=== PATIENT | male | born 1980 | race Caucasian/White ===

== ENCOUNTER 2022-06-26 12:27 | Emergency (ER) | payer MEDICARE, MEDICAID, SELFPAY ==
[2022-06-26 12:53] VITALS: BP 126/81; PULSE 85; RESP 16; TEMP 36.8; O2SAT 94; BMI 37.8
--- NOTE | 2022-06-26 13:38 | CRLHL7_ITS ---
For Patients: As a result of the Cures Act, medical imaging exams and procedure reports are released immediately into your electronic medical record. You may view this report before your referring provider. If you have questions, please contact your health care provider. INDICATION: Open wound. TECHNIQUE: Right foot 3 views. COMPARISON: None. FINDINGS: No acute fracture or dislocation. Joint spaces are preserved. There is soft tissue swelling about the 1st digit and 5th MTP joint. Soft tissue ulceration along the medial aspect of the 1st digit with small amount of localized soft tissue gas. Minimal superficial ulceration along the lateral aspect of the 5th MTP joint. No definite radiographic evidence of osteomyelitis. IMPRESSION: 1. Soft tissue swelling about 1st digit and 5th MTP joint. 2. Soft tissue ulceration along the medial aspect of the 1st digit with small amount of localized soft tissue gas. 3. No definite radiographic evidence of osteomyelitis. Dictated by Graciela Barton MD @ 06/26/2022 2:59:27 PM (Electronically Signed)
--- NOTE | 2022-06-26 13:39 | CRLHL7_ITS ---
For Patients: As a result of the Century Cures Act, medical imaging exams and procedure reports are released immediately into your electronic medical record. You may view this report before your referring provider. If you have questions, please contact your health care provider. INDICATION: Leg pain. TECHNIQUE: Ultrasound venous duplex lower right extremity. Compression venous exam was performed using stephens-scale, color Doppler, and spectral Doppler analysis. COMPARISON: None. FINDINGS: Deep veins: Sonographic imaging demonstrates the right common femoral, deep femoral, superficial femoral, popliteal, posterior tibial, peroneal and the contralateral right common femoral veins to be fully compressible with normal color Doppler blood flow. Superficial veins: Greater saphenous vein is fully compressible. No popliteal cyst. IMPRESSION: No deep venous thrombosis within the evaluated veins of the right lower extremity. Dictated by Clint Brown MD @ 06/26/2022 4:03:00 PM (Electronically Signed)
--- NOTE | 2022-06-26 13:42 | ED.GENADULT ---
HPI - General Adult General Date Seen: 06/26/22 Chief complaint: Extremity Pain/Injury, Lower Stated complaint: left foot pain-diabetic Time Seen by Provider: 06/26/22 13:20 Source: patient and family Mode of arrival: ambulatory Limitations: no limitations History of Present Illness HPI narrative: Patient is a 42-year-old male with past medical history notable for type 2 diabetes, insulin dependent and hopelessness. He presents for evaluation of right foot and leg pain. He says that these symptoms started about a week ago. He says that today he noticed a wound on his great toe, his cousin who is with him, says that really he noticed it yesterday. He says that he has good sensation in his feet, he does sound like he has some neuropathy as he has been having some pain in his feet bilaterally for a longer period of time. However, the pain in his right foot is different than what he has been having previously. He denies fevers. He does say that he has been out of his insulin for at least a few days. He has not had any testing materials either. He notes increased urination, denies nausea or vomiting. The right leg has not been red or swollen. Pain extends up the medial aspect of the leg, and is sharp and somewhat spasmodic. He does note tobacco use. He says he tried vaping some THC which helped with his pain. He denies other substance use. Says he drink alcohol when he was very young but does not drink now. He denies any IV drug use or other drug use. He is currently living in a homeless snf in [place]. Related Data Home Medications Medication Instructions Recorded Confirmed aripiprazole 20 mg tablet mg 06/26/22 blood sugar diagnostic (Accu-Chek 06/26/22 06/26/22 Guide test strips) blood-glucose meter (Accu-Chek 06/26/22 06/26/22 Guide Me Glucose Meter) escitalopram oxalate 20 mg tablet mg 06/26/22 insulin aspart U-100 100 unit/mL subcut 06/26/22 (3 mL) subcutaneous pen (Novolog FlexPen U-100 Insulin aspart) insulin glargine 100 unit/mL (3 unit subcut 06/26/22 mL) subcutaneous pen (Lantus Solostar U-100 Insulin) lancets (Accu-Chek Softclix 06/26/22 06/26/22 Lancets) loratadine 10 mg tablet mg 06/26/22 pen needle, diabetic 31 gauge x 06/26/22 06/26/22 5/16 (BD Ultra-Fine Short Pen Needle) prazosin 1 mg capsule mg 06/26/22 rosuvastatin 40 mg tablet mg 06/26/22 trazodone 50 mg tablet mg 06/26/22 Previous Rx's Medication Instructions Recorded levofloxacin 500 mg tablet 500 mg PO DAILY 10 days #10 tabs 06/26/22 Allergies Allergy/AdvReac Type Severity Reaction Status Date / Time No Known Drug Allergies Allergy Verified 06/26/22 12:50 Review of Systems Status of ROS: Reports: 10 or more systems reviewed and unremarkable except as noted in History and below [facility] Social History Smoking Status: Current every day smoker What tobacco products do you use: cigarettes Do you use any of these nicotine containing products: None Second hand tobacco smoke exposure: No How often do you have a drink containing alcohol: never AUDIT-C Alcohol total score: 0 Non-prescribed substance use: denies use service: No Exam Narrative: Exam Narrative: Vital signs as noted above. In general, an alert, nontoxic male. Cooperative. Head: Normocephalic, atraumatic. Eyes: Pupils are equal reactive. Extraocular movements are full. Conjunctivae are normal. No scleral icterus. ENT: Mucous membranes are moist. Throat is normal. Neck: Supple without lymphadenopathy. Heart: Regular rate and rhythm. No murmur or rub. Lungs: Clear bilaterally. No increased work of breathing, crackles or wheezes. Abdomen: Soft and nontender. No organomegaly. Extremities: Bilateral lower extremities show no significant edema. I am not able to palpate dorsalis pedis pulses bilaterally. The left foot is normal in appearance. On the right, there is sloughing of the dermis of the great toe with erythematous skin underneath, and a deeper area of ulceration which I did not probe. He does seem to have pain in this area with palpation. The skin distal to this is somewhat dusky. More proximally, the skin is pink, but capillary refill is somewhat delayed. The skin on the 2nd toe also appears somewhat dusky. Overall, the appearance of the right foot is just slightly dusky compared to the left, but does not feel significantly cool or poorly perfused overall. He notes intact sensation throughout. The right leg is normal in appearance, there is no erythema. He notes tenderness to palpation on the medial leg throughout the lower leg and thigh. I do not feel any adenopathy or other masses. No adenopathy in the groin. No lymphangitic streaking. Neurologic: Patient is alert and oriented to person and place. Speech is fluent. Face is symmetric. Moves all extremities equally. Affect: Normal. Skin: Warm and dry. Const: Vital Signs, click to edit/add: Vital Signs - 24 hr 06/26/22 12:53 Temperature 98.3 F Pulse Rate [Pulse Oximeter] 85 Respiratory Rate 16 Blood Pressure [Ri ght Upper Arm] 126/81 Pulse Oximetry 94 Oxygen Delivery Me thod Room Air Documenting provider has reviewed patient's vital signs: yes Course Course Hospital Course: At this time I have ordered an IV with normal saline, blood work to evaluate for the status of his diabetes and potential infection, x-rays of the right foot as well as a Doppler of the right leg. Will see if we can Doppler pulses in his feet. Workup reveals a Doppler which is read by Radiology as negative for DVT. I also did an arterial ultrasound, which ultimately was read as showing patent arteries. An x-ray of the foot was reviewed by me, no obvious findings of osteomyelitis. Radiology notes a little bit of subcutaneous air underneath the area of ulceration, no findings of osteomyelitis or fracture. Labs are notable for a lactate of 2.1, CRP of 3.9. D-dimer is 0.52 I think unremarkable in the setting of a negative Doppler. White blood cell count mildly elevated of 11.9, hemoglobin is unremarkable. Venous gas is unremarkable. Metabolic panel shows a blood sugar of 379, did give him 8 units of insulin here. He also had something to eat. Electrolytes and creatinine are normal. LFTs are unremarkable. UA shows 2+ protein and glucose, but notably no ketones. COVID is negative. I did take pictures of his wound and discussed these with Dr. Hayden. He felt overall that it would be reasonable to start him on oral antibiotics and then follow up in in clinic next week for debridement. I gave him Rocephin IV here, will treat him with Levaquin orally. He does say that he has access to insulin again for use at home. He is staying in a homeless snf. He will be able to fill his antibiotic, his cousin is here and can take him to get his prescription. Reviewed with him that if he has follow up worsening symptoms, if he has fever or chills, if he notes development of redness, increasing pain, streaks of his leg, anything like that he should come back to the emergency department right away. Likewise if the toe or foot are changing collar, becoming darker, he should come back for re-evaluation. He is comfortable with all that. His cousin is available to help him with transportation. We made him an appointment with Dr. Hayden for next week. Vital Signs Vital signs: Initial Vital Signs Temperature 98.3 F 06/26/22 12:53 Temperature Source Oral 06/26/22 12:53 Pulse Rate 85 06/26/22 12:53 Pulse Rhythm 06/26/22 12:53 Pulse Strength 3+ Normal 06/26/22 12:53 Respiratory Rate 16 06/26/22 12:53 Blood Pressure 126/81 06/26/22 12:53 Blood Pressure Mean 96 06/26/22 12:53 Blood Pressure Position Sitting 06/26/22 12:53 Pulse Oximetry 94 06/26/22 12:53 Oxygen Delivery Method 06/26/22 12:53 Vital Signs Temperature 98.3 F 06/26/22 12:53 Pulse Rate 85 06/26/22 12:53 Respiratory Rate 16 06/26/22 12:53 Blood Pressure 126/81 06/26/22 12:53 Pulse Oximetry 94 06/26/22 12:53 Oxygen Delivery Method 06/26/22 12:53 Temperature 98.3 F 06/26/22 12:53 Pulse Rate 85 06/26/22 12:53 Respiratory Rate 16 06/26/22 12:53 Blood Pressure 126/81 06/26/22 12:53 Pulse Oximetry 94 06/26/22 12:53 Oxygen Delivery Method 06/26/22 12:53 Medical Decision Making Lab Data Labs: Lab Results 06/26/22 06/26/22 06/26/22 Range/Units 14:16 14:16 14:16 WBC 11.91 H (4.50-11.00) K/uL RBC 5.65 (4.30-5.90) m/uL Hgb 16.1 (13.5-17.5) gm/dL Hct 48.4 (37.0-53.0) % MCV 86 (80-100) fL MCH 29 (26-34) pg MCHC 33 (32-36) gm/dL RDW Coeff of David 12.5 (11.5-15.5) % Plt Count 356 (140-440) K/uL Neut % (Auto) 75.6 H (42.0-72.0) % Lymph % (Auto) 15.4 L (20-44) % [place] % (Auto) 7.9 (0.0-11.0) % Eos % (Auto) 0.6 (0.0-7.0) % Baso % (Auto) 0.2 (0.0-3.0) % Neut # (Auto) 9.00 H (1.7-7.0) K/uL Lymph # (Auto) 1.80 (0.90-2.90) K/uL [place] # (Auto) 0.90 (0.00-0.90) K/UL Eos # (Auto) 0.10 (0.00-0.50) K/uL Baso # (Auto) 0.00 (0.00-0.30) K/uL INR (0.91-1.10) D-Dimer Quant (PE/DVT) 0.52 H (0.00-0.50) ug/ml VBG pH (7.32-7.43) VBG pCO2 (40-50) mmHG VBG pO2 (25-47) mmHG VBG HCO3 (21-28) mmol/L Sodium 134 L (135-149) mmol/L Potassium 4.2 (3.6-5.1) mmol/L Chloride 102 (96-114) mmol/L Carbon Dioxide 28 (20-32) mmol/L BUN 14 (5-24) mg/dL Creatinine 0.7 (0.5-1.5) mg/dL Estimated Creat Clear 143.43 Estimated GFR 117 ml/min Glucose 379 H* (60-115) mg/dL Lactate (0.5-1.9) mmol/L Calcium 9.0 (8.4-10.6) mg/dL Total Bilirubin 0.5 (0.1-1.5) mg/dL Direct Bilirubin 0.2 (0.0-0.5) mg/dL AST 14 (12-35) U/L ALT 20 (4-50) U/L Alkaline Phosphatase 98 (40-150) U/L C-Reactive Protein 3.9 H (0.5-1.0) mg/dL Total Protein 8.2 (6.0-8.3) g/dL Albumin 4.0 (3.3-5.0) g/dL Urine Color (Yellow) Urine Appearance (Clear) Urine pH (5.0-8.5) Ur Specific [place] (1.000-1.030) Urine Protein (Negative) Urine Glucose (UA) (Negative) Urine Ketones (Negative) Urine Blood (Negative) Urine Nitrite (Negative) Urine Bilirubin (Negative) Urine Urobilinogen (0.2-1.0) Ur Leukocyte Esterase (Negative) Urine RBC (0-2) Urine WBC (0-5) Ur Squamous Epith Cells (None-Few) Urine Bacteria (None) SARS-CoV-2 (PCR) (Negative) 06/26/22 06/26/22 06/26/22 Range/Units 14:16 14:16 14:16 WBC (4.50-11.00) K/uL RBC (4.30-5.90) m/uL Hgb (13.5-17.5) gm/dL Hct (37.0-53.0) % MCV (80-100) fL MCH (26-34) pg MCHC (32-36) gm/dL RDW Coeff of David (11.5-15.5) % Plt Count (140-440) K/uL Neut % (Auto) (42.0-72.0) % Lymph % (Auto) (20-44) % [place] % (Auto) (0.0-11.0) % Eos % (Auto) (0.0-7.0) % Baso % (Auto) (0.0-3.0) % Neut # (Auto) (1.7-7.0) K/uL Lymph # (Auto) (0.90-2.90) K/uL [place] # (Auto) (0.00-0.90) K/UL Eos # (Auto) (0.00-0.50) K/uL Baso # (Auto) (0.00-0.30) K/uL INR 1.01 (0.91-1.10) D-Dimer Quant (PE/DVT) (0.00-0.50) ug/ml VBG pH (7.32-7.43) VBG pCO2 (40-50) mmHG VBG pO2 (25-47) mmHG VBG HCO3 (21-28) mmol/L Sodium (135-149) mmol/L Potassium (3.6-5.1) mmol/L Chloride (96-114) mmol/L Carbon Dioxide (20-32) mmol/L BUN (5-24) mg/dL Creatinine (0.5-1.5) mg/dL Estimated Creat Clear Estimated GFR ml/min Glucose (60-115) mg/dL Lactate 2.1 H (0.5-1.9) mmol/L Calcium (8.4-10.6) mg/dL Total Bilirubin (0.1-1.5) mg/dL Direct Bilirubin (0.0-0.5) mg/dL AST (12-35) U/L ALT (4-50) U/L Alkaline Phosphatase (40-150) U/L C-Reactive Protein (0.5-1.0) mg/dL Total Protein (6.0-8.3) g/dL Albumin (3.3-5.0) g/dL Urine Color (Yellow) Urine Appearance (Clear) Urine pH (5.0-8.5) Ur Specific [place] (1.000-1.030) Urine Protein (Negative) Urine Glucose (UA) (Negative) Urine Ketones (Negative) Urine Blood (Negative) Urine Nitrite (Negative) Urine Bilirubin (Negative) Urine Urobilinogen (0.2-1.0) Ur Leukocyte Esterase (Negative) Urine RBC (0-2) Urine WBC (0-5) Ur Squamous Epith Cells (None-Few) Urine Bacteria (None) SARS-CoV-2 (PCR) Negative SARS-CoV-2 (Negative) 06/26/22 06/26/22 Range/Units 14:16 16:06 WBC (4.50-11.00) K/uL RBC (4.30-5.90) m/uL Hgb (13.5-17.5) gm/dL Hct (37.0-53.0) % MCV (80-100) fL MCH (26-34) pg MCHC (32-36) gm/dL RDW Coeff of David (11.5-15.5) % Plt Count (140-440) K/uL Neut % (Auto) (42.0-72.0) % Lymph % (Auto) (20-44) % [place] % (Auto) (0.0-11.0) % Eos % (Auto) (0.0-7.0) % Baso % (Auto) (0.0-3.0) % Neut # (Auto) (1.7-7.0) K/uL Lymph # (Auto) (0.90-2.90) K/uL [place] # (Auto) (0.00-0.90) K/UL Eos # (Auto) (0.00-0.50) K/uL Baso # (Auto) (0.00-0.30) K/uL INR (0.91-1.10) D-Dimer Quant (PE/DVT) (0.00-0.50) ug/ml VBG pH 7.418 (7.32-7.43) VBG pCO2 45 (40-50) mmHG VBG pO2 40.2 (25-47) mmHG VBG HCO3 29 H (21-28) mmol/L Sodium (135-149) mmol/L Potassium (3.6-5.1) mmol/L Chloride (96-114) mmol/L Carbon Dioxide (20-32) mmol/L BUN (5-24) mg/dL Creatinine (0.5-1.5) mg/dL Estimated Creat Clear Estimated GFR ml/min Glucose (60-115) mg/dL Lactate (0.5-1.9) mmol/L Calcium (8.4-10.6) mg/dL Total Bilirubin (0.1-1.5) mg/dL Direct Bilirubin (0.0-0.5) mg/dL AST (12-35) U/L ALT (4-50) U/L Alkaline Phosphatase (40-150) U/L C-Reactive Protein (0.5-1.0) mg/dL Total Protein (6.0-8.3) g/dL Albumin (3.3-5.0) g/dL Urine Color Yellow (Yellow) Urine Appearance Turbid A (Clear) Urine pH 5.5 (5.0-8.5) Ur Specific [place] 1.020 (1.000-1.030) Urine Protein 2+ A (Negative) Urine Glucose (UA) 2+ A (Negative) Urine Ketones Negative (Negative) Urine Blood Trace-lysed A (Negative) Urine Nitrite Negative (Negative) Urine Bilirubin Negative (Negative) Urine Urobilinogen 0.2 (0.2-1.0) Ur Leukocyte Esterase Negative (Negative) Urine RBC 0-2 (0-2) Urine WBC 0-2 (0-5) Ur Squamous Epith Cells None (None-Few) Urine Bacteria None (None) SARS-CoV-2 (PCR) (Negative) Discharge Plan Discharge Clinical Impression: Diabetes, Chronic ulcer of great toe of right foot Patient Disposition: Home, Self-Care Condition: Improved Instructions: Diabetic Foot Ulcers (ED) Additional Instructions: Your Podiatry follow up appointment is scheduled at the [facility] on 06/30 with a 1:30pm arrival time. [address], [place] [address] Return to the emergency department for redness, increasing pain, fever, chills, or other worsening. Antibiotics as prescribed. Ibuprofen or Tylenol as needed for pain. Prescriptions: New levofloxacin 500 mg tablet 500 mg PO DAILY 10 Days Qty: 10 0RF No Action (DME) blood-glucose meter [Accu-Chek Guide Me Glucose Mtr] Misc MISCELLANEOUS trazodone 50 mg tablet prazosin 1 mg capsule (DME) Accu-Chek Guide test strips Strip MISCELLANEOUS (DME) lancets [Accu-Chek Softclix Lancets] Misc MISCELLANEOUS loratadine 10 mg tablet (DME) pen needle, diabetic [BD Ultra-Fine Short Pen Needle] 31 gauge x 5/16 needle MISCELLANEOUS escitalopram oxalate 20 mg tablet aripiprazole 20 mg tablet insulin aspart U-100 [Novolog FlexPen U-100 Insulin] 100 unit/mL (3 mL) insulin pen SUBCUT rosuvastatin 40 mg tablet insulin glargine [Lantus Solostar U-100 Insulin] 100 unit/mL (3 mL) insulin pen SUBCUT Stand Alone Forms: MyHealth Info Instructions
[2022-06-26 14:28] LABS: HCO3 VBG 29 mmol/L (21-28); PCO2 VBG 45 mmHG (40-50); PO2 VBG 40.2 mmHG (25-47); pH VBG 7.418 (7.32-7.43)
[2022-06-26 14:29] LABS: Basophils Percent Auto 0.2 % (0.0-3.0); Eosinophils Percent Auto 0.6 % (0.0-7.0); Hematocrit 48.4 % (37.0-53.0); Hemoglobin* 16.1 gm/dL (13.5-17.5); Immature Granulocytes Pct Auto 0.3 %; Lactate* 2.1 mmol/L (0.5-1.9); Lymphocytes Percent Auto 15.4 % (20-44); Mean Corpuscular HGB Conc 33 gm/dL (32-36); Mean Corpuscular Hemoglobin 29 pg (26-34); Mean Corpuscular Volume 86 fL (80-100); Monocytes Percent Auto 7.9 % (0.0-11.0); Neutrophils Percent Auto 75.6 % (42.0-72.0); Platelet Count* 356 K/uL (140-440); RDW Coefficient of Variation % 12.5 % (11.5-15.5); Red Blood Count 5.65 m/uL (4.30-5.90); White Blood Count* 11.91 K/uL (4.50-11.00)
[2022-06-26] MEDS: MORPHINE 4 MG/ML INJ IVP (14:29)
[2022-06-26] MEDS: 0.9 % SODIUM CHLORIDE 500 ML 500 ML IV (14:30)
[2022-06-26 14:32] LABS: Slide Review Reflex No
--- NOTE | 2022-06-26 14:40 | CRLHL7_ITS ---
For Patients: As a result of the Cures Act, medical imaging exams and procedure reports are released immediately into your electronic medical record. You may view this report before your referring provider. If you have questions, please contact your health care provider. DUPLEX ARTERIAL ULTRASOUND RIGHT LOWER EXTREMITY, 06/26/2022 CLINICAL HISTORY: Non-healing right lower extremity wound. COMPARISON: None. TECHNIQUE: The right lower extremity arteries were examined per exam specific protocol with stephens-scale ultrasound, color-flow and Doppler spectral analysis. Peak systolic velocities (PSV), Doppler waveform quality and velocity ratios, if applicable, were documented at sites per exam specific protocol. FINDINGS: ARTERIAL DUPLEX US LOWER EXTREMITIES (Velocity in cm/sec) RIGHT VELOCITY WAVEFORM BAR CAPTAIN 143 T DFA 74 T SFA PROX 121 T SFA MID 108 T SFA DIS 112 T POP 128 T CELESTINA 94 T RESEARCH PROGRAM MANAGER 143 B TOSHA 40 B DPA 53 B Multiphasic waveforms are seen throughout the right lower extremity arterial system. No evidence of hemodynamically significant stenoses or occlusions. There is a 2.7 x 1.1 x 2.4 cm lymph node in the right inguinal region which demonstrates normal internal architecture. IMPRESSION: Multiphasic waveforms throughout the right lower extremity arterial system. No evidence of hemodynamically significant stenoses or occlusions. Kyree Ni M.D. [facility] [facility] [email or web address] THELMA/art cordova/Dictated by: Kyree Ni MD @ 06/26/2022 4:28:00 PM (Electronically Signed)
[2022-06-26 14:47] LABS: Chloride* 102 mmol/L (96-114); Sodium* 134 mmol/L (135-149)
[2022-06-26 14:48] LABS: Potassium* 4.2 mmol/L (3.6-5.1)
[2022-06-26 14:50] LABS: Alkaline Phosphatase* 98 U/L (40-150); Aspartate Amino Transferase* 14 U/L (12-35); Bilirubin Direct* 0.2 mg/dL (0.0-0.5); Bilirubin Total* 0.5 mg/dL (0.1-1.5); Blood Urea Nitrogen* 14 mg/dL (5-24); Carbon Dioxide* 28 mmol/L (20-32); Creatinine* 0.7 mg/dL (0.5-1.5); Est. Creatinine Clearance* 143.43; Estimated Glomerular Filt Rate 117 ml/min; Total Protein* 8.2 g/dL (6.0-8.3)
[2022-06-26 14:51] LABS: Alanine Aminotransferase* 20 U/L (4-50); D Dimer Quantitative* 0.52 ug/ml (0.00-0.50)
[2022-06-26 14:53] LABS: C Reactive Protein* 3.9 mg/dL (0.5-1.0)
[2022-06-26 14:58] LABS: Glucose* 379 mg/dL (60-115)
--- NOTE | 2022-06-26 14:59 | ED.NURSE ---
Critical lab: 379 glucose, handed to at 1500
[2022-06-26 15:33] LABS: SARS PCR* Negative SARS-CoV-2 (Negative)
[2022-06-26 15:34] LABS: INR 1.01 (0.91-1.10); Prothrombin Time 13.9 Seconds
[2022-06-26 16:23] LABS: Appearance Urine Turbid (Clear); Bilirubin Urine Negative (Negative); Blood Urine Trace-lysed (Negative); Color Urine Yellow (Yellow); Glucose Urine 2+ (Negative); Ketones Urine Negative (Negative); Leukocyte Esterase Urine Negative (Negative); Nitrite Urine Negative (Negative); Protein Urine 2+ (Negative); Urobilinogen Urine 0.2 (0.2-1.0); pH Urine 5.5 (5.0-8.5)
[2022-06-26 16:39] LABS: RBC Urine 0-2 (0-2); WBC Urine 0-2 (0-5)
[2022-06-26] MEDS: cefTRIAXone 1 GM in 0.9 % SODIUM CHLORIDE Mini-bag 100 ML IVPB (16:43)
== END 2022-06-26 17:43 | disposition home or self-care (01) ==
PROVIDERS: Emergency Provider Emergency Medicine
DX: E11.621 Type 2 diabetes mellitus with foot ulcer (principal); L97.519 Non-pressure chronic ulcer of other part of right foot with unspecified severity
CPT/HCPCS: 36415; 73630; 80048; 80076; 81001; 82803; 83605; 85025; 85379; 85610; 86140; 87040; 87635; 93926; 93971; 96365; 96375; 99284; J0696; J2270; J7120

== ENCOUNTER 2022-07-06 17:50 | Outpatient (CLI) | payer MEDICARE, MEDICAID, SELFPAY | END 2022-07-06 17:51 | disposition home or self-care (01) | LOC: AMB 07-09 11:22 | PROVIDERS: Visit Provider Emergency Medicine Emergency Medical Services | DX: M79.671 Pain in right foot (principal) | CPT/HCPCS: A0425; A0429 ==

== ENCOUNTER 2022-07-06 18:06 | Inpatient (IN) | payer MEDICARE, MEDICAID, SELFPAY ==
[2022-07-06] VITALS (10 sets, daily range): BP systolic 126–144; BP diastolic 70–90; PULSE 81–95; RESP 16–20; TEMP 37.1–37.2; O2SAT 90–96; BMI 37.8; BMI 34.0
--- NOTE | 2022-07-06 18:44 | CRLHL7_ITS ---
For Patients: As a result of the Century Cures Act, medical imaging exams and procedure reports are released immediately into your electronic medical record. You may view this report before your referring provider. If you have questions, please contact your health care provider. Indication: Pain. Concern for osteomyelitis. Technique: Right great toe, 2 views. Comparison: None. Findings/Impression: Bones: Subtle cortical dehiscence along the medial aspect of the great toe proximal phalanx suspicious for early osteomyelitis, particularly in the setting of adjacent overlying skin ulceration. Joint spaces: Unremarkable. Soft tissues: Right great toe skin ulceration. Dictated by John Watt MD @ 07/06/2022 7:31:04 PM (Electronically Signed)
--- NOTE | 2022-07-06 18:44 | ED_ITS ---
HPI - Extremity Injury (Lower) General Chief Complaint: Lower Extremity Swelling Stated Complaint: Foot Infection Time Seen by Provider: 07/06/22 18:25 History of Present Illness HPI Narrative: 42-year-old man presents again to the emergency department after being seen here about 10 days ago and diagnosed with a foot/great toe ulceration and suspected related of infection. Likely peripheral neuropathy. Diabetes and uses insulin. He was given Rocephin in the emergency department and to take levofloxacin. Underlying history apparently of TBI and he also reveals to me that he has to take regular shots of Abilify so that ?I do not talk to myself?. He is a very poor historian. It is unclear whether not he was taking his levofloxacin so with permission I do call to his sister who lives in [place] now. Mr. Low has been homeless though now lives in temporary subsidized apartment, though sister notes still qualifies as homeless. Her name is Chris and he was able to recall her phone number at [phone]. She notes that he did not take Levaquin as prescribed. Nursing indicates that he has not followed up with Podiatry as scheduled 6 days ago. Podiatry was consulted during last ER visit. Sheryl is a cousin who works for [employer] phone number [phone] whose phone number I get from [employer]. It was actually she who apparently saw that the antibiotic pills had not been taken. Sister recalls 3 to 4 weeks ago started to have pain in his feet. Somewhere between 2-3 weeks ago on ulceration was apparently noticed. All these time lines are in question. Mr. Low at this point denies any fever. Does feel this pain radiating up medial lower leg. I do place saline soaked gauze on to this open sore/ulceration and he says already starts to feel better. Related Data Home Medications Medication Instructions Recorded Confirmed aripiprazole 20 mg tablet mg 06/26/22 blood sugar diagnostic (Accu-Chek 06/26/22 06/26/22 Guide test strips) blood-glucose meter (Accu-Chek 06/26/22 06/26/22 Guide Me Glucose Meter) escitalopram oxalate 20 mg tablet mg 06/26/22 insulin aspart U-100 100 unit/mL subcut 06/26/22 (3 mL) subcutaneous pen (Novolog FlexPen U-100 Insulin aspart) insulin glargine 100 unit/mL (3 unit subcut 06/26/22 mL) subcutaneous pen (Lantus Solostar U-100 Insulin) lancets (Accu-Chek Softclix 06/26/22 06/26/22 Lancets) loratadine 10 mg tablet mg 06/26/22 pen needle, diabetic 31 gauge x 06/26/22 06/26/22 5/16 (BD Ultra-Fine Short Pen Needle) prazosin 1 mg capsule mg 06/26/22 rosuvastatin 40 mg tablet mg 06/26/22 trazodone 50 mg tablet mg 06/26/22 Previous Rx's Medication Instructions Recorded levofloxacin 500 mg tablet 500 mg PO DAILY 10 days #10 tabs 06/26/22 Allergies Allergy/AdvReac Type Severity Reaction Status Date / Time No Known Drug Allergies Allergy Verified 07/06/22 18:13 [facility] Social History Smoking Status: Current every day smoker What tobacco products do you use: cigarettes Do you use any of these nicotine containing products: None Second hand tobacco smoke exposure: No How often do you have a drink containing alcohol: never AUDIT-C Alcohol total score: 0 Non-prescribed substance use: denies use service: No Exam Narrative: Exam Narrative: Pleasant. Calm. Does demonstrate difficulty with recall. Breathing easily. Lungs appear to be clear. Heart in a regular rate and rhythm. Skin is warm and dry. The right foot in question as prior is subtly darker compared to the left. Faintly erythematous. Does have sloughing of skin and large ulceration over the medial aspect of the proximal great toe. There is dark yellow-brown goo. Faintly erythematous proximal to this erosion and over the dorsum of the foot which does extend to the ankle. There is subtle erythema without calor over the medial plantar surface of the foot up to the heel as well. Generally mildly full relative to the left foot. He is tender to palpation along this area. Says he feels better though when I actually press on the ball of his foot. He also feels better with saline soaked gauze draped over this ulceration. There is a dense and painful callus over the right 5th MTP with an abrasion in the skin. Also over the left 5th MTP. I do not see surrounding inflammatory changes here. Bad odor generally. Const: Vital Signs, click to edit/add: Vital Signs - 24 hr 07/06/22 18:09 07/06/22 19:08 07/06/22 19:15 Temperature 99.0 F Pulse Rate 95 86 Pulse Rate [Pulse Oximeter] 85 Respiratory Rate 16 Blood Pressure Blood Pressure [Ri ght Upper Arm] 139/86 Pulse Oximetry 96 95 93 Oxygen Delivery Me thod Room Air 07/06/22 19:31 07/06/22 19:32 07/06/22 19:45 Temperature Pulse Rate 90 88 84 Pulse Rate [Pulse Oximeter] Respiratory Rate Blood Pressure 126/90 H Blood Pressure [Ri ght Upper Arm] Pulse Oximetry 90 90 90 Oxygen Delivery Me thod 07/06/22 20:00 07/06/22 20:01 07/06/22 20:15 Temperature Pulse Rate 83 83 81 Pulse Rate [Pulse Oximeter] Respiratory Rate Blood Pressure 127/70 Blood Pressure [Ri ght Upper Arm] Pulse Oximetry 90 92 92 Oxygen Delivery Me thod Documenting provider has reviewed patient's vital signs: yes Course Vital Signs Vital signs: Initial Vital Signs Temperature 99.0 F 07/06/22 18:09 Temperature Source Temporal Artery Scan 07/06/22 18:09 Pulse Rate 85 07/06/22 18:09 Pulse Rhythm 07/06/22 18:09 Pulse Strength 3+ Normal 07/06/22 18:09 Respiratory Rate 16 07/06/22 18:09 Blood Pressure 139/86 07/06/22 18:09 Blood Pressure Mean 103 07/06/22 18:09 Blood Pressure Position Supine 07/06/22 18:09 Pulse Oximetry 96 07/06/22 18:09 Oxygen Delivery Method 07/06/22 18:09 Vital Signs Temperature 99.0 F 07/06/22 18:09 Pulse Rate 85 07/06/22 18:09 Respiratory Rate 16 07/06/22 18:09 Blood Pressure 139/86 07/06/22 18:09 Pulse Oximetry 96 07/06/22 18:09 Oxygen Delivery Method 07/06/22 18:09 Temperature 99.0 F 07/06/22 18:09 Pulse Rate 81 07/06/22 20:15 Respiratory Rate 16 07/06/22 18:09 Blood Pressure 127/70 07/06/22 20:01 Pulse Oximetry 92 02/27/23 20:15 Oxygen Delivery Method 07/06/22 18:09 MDM - Extremity Injury (Lower) MDM Narrative Medical decision making narrative: IV will be established. Need to compare labs. Comparing images to x-rays obtained 10 days ago it appears to me that there is some erosion of the medial aspect of the great toe, especially proximal phalynx, that might represent osteomyelitis. I have debrided some of the is partially sloughed callus skin from around this largest wound on the right great toe. After rinsing with normal saline cleaning a little bit, there is some ooze that I've collected for wound culture from the most proximal aspect that lies deep to the dorsal toe. White count is rather elevated relative to week and half ago now at nearly 17,000. CRP is over 8. I am anticipating admission for IV antibiotics and debridement. I have discussed with Dr. Hayden, corporate legal secretary. He would anticipate seeing this patient tomorrow. Anticipating conversation with our hospitalist Dr. Marrero and likely initiation of vancomycin and Rocephin. Sounds like will be admitting to [facility]. This case is complicated by homelessness and cognitive capability. Medical Records Attestation: I reviewed the patient's medical records. Lab Data Attestation: I reviewed the patient's lab results. Labs: Lab Results 07/06/22 07/06/22 07/06/22 Range/Units 18:50 18:50 18:50 WBC 16.75 H (4.50-11.00) K/uL RBC 5.73 (4.30-5.90) m/uL Hgb 16.1 (13.5-17.5) gm/dL Hct 48.2 (37.0-53.0) % MCV 84 (80-100) fL MCH 28 (26-34) pg MCHC 33 (32-36) gm/dL RDW Coeff of David 12.5 (11.5-15.5) % Plt Count 352 (140-440) K/uL Neut % (Auto) 79.9 H (42.0-72.0) % Lymph % (Auto) 10.4 L (20-44) % Nicholas % (Auto) 9.1 (0.0-11.0) % Eos % (Auto) 0.1 (0.0-7.0) % Baso % (Auto) 0.1 (0.0-3.0) % Neut # (Auto) 13.40 H (1.7-7.0) K/uL Lymph # (Auto) 1.70 (0.90-2.90) K/uL Nicholas # (Auto) 1.50 H (0.00-0.90) K/UL Eos # (Auto) 0.00 (0.00-0.50) K/uL Baso # (Auto) 0.00 (0.00-0.30) K/uL Sodium 133 L (135-149) mmol/L Potassium 3.8 (3.6-5.1) mmol/L Chloride 99 (96-114) mmol/L Carbon Dioxide 28 (20-32) mmol/L BUN 13 (5-24) mg/dL Creatinine 0.6 (0.5-1.5) mg/dL Estimated Creat Clear 167.33 Estimated GFR 122 ml/min Glucose 282 H (60-115) mg/dL Lactate (0.5-1.9) mmol/L Calcium 8.9 (8.4-10.6) mg/dL C-Reactive Protein 8.1 H (0.5-1.0) mg/dL SARS-CoV-2 (PCR) Negative SARS-CoV-2 (Negative) 07/06/22 Range/Units 19:40 WBC (4.50-11.00) K/uL RBC (4.30-5.90) m/uL Hgb (13.5-17.5) gm/dL Hct (37.0-53.0) % MCV (80-100) fL MCH (26-34) pg MCHC (32-36) gm/dL RDW Coeff of David (11.5-15.5) % Plt Count (140-440) K/uL Neut % (Auto) (42.0-72.0) % Lymph % (Auto) (20-44) % Nicholas % (Auto) (0.0-11.0) % Eos % (Auto) (0.0-7.0) % Baso % (Auto) (0.0-3.0) % Neut # (Auto) (1.7-7.0) K/uL Lymph # (Auto) (0.90-2.90) K/uL Nicholas # (Auto) (0.00-0.90) K/UL Eos # (Auto) (0.00-0.50) K/uL Baso # (Auto) (0.00-0.30) K/uL Sodium (135-149) mmol/L Potassium (3.6-5.1) mmol/L Chloride (96-114) mmol/L Carbon Dioxide (20-32) mmol/L BUN (5-24) mg/dL Creatinine (0.5-1.5) mg/dL Estimated Creat Clear Estimated GFR ml/min Glucose (60-115) mg/dL Lactate 1.3 (0.5-1.9) mmol/L Calcium (8.4-10.6) mg/dL C-Reactive Protein (0.5-1.0) mg/dL SARS-CoV-2 (PCR) (Negative) Discharge Plan Discharge Clinical Impression: Infection of great toe, Osteomyelitis Patient Disposition: Admitted As Inpatient Condition: Stable
[2022-07-06 19:10] LABS: Basophils Percent Auto 0.1 % (0.0-3.0); Eosinophils Percent Auto 0.1 % (0.0-7.0); Hematocrit 48.2 % (37.0-53.0); Hemoglobin* 16.1 gm/dL (13.5-17.5); Immature Granulocytes Pct Auto 0.4 %; Lymphocytes Percent Auto 10.4 % (20-44); Mean Corpuscular HGB Conc 33 gm/dL (32-36); Mean Corpuscular Hemoglobin 28 pg (26-34); Mean Corpuscular Volume 84 fL (80-100); Monocytes Percent Auto 9.1 % (0.0-11.0); Neutrophils Percent Auto 79.9 % (42.0-72.0); Platelet Count* 352 K/uL (140-440); RDW Coefficient of Variation % 12.5 % (11.5-15.5); Red Blood Count 5.73 m/uL (4.30-5.90); White Blood Count* 16.75 K/uL (4.50-11.00)
--- NOTE | 2022-07-06 19:19 | ED.NURSE ---
patient given food and fluids - okayed by .
[2022-07-06 19:30] LABS: Slide Review Reflex No
[2022-07-06 19:32] LABS: Chloride* 99 mmol/L (96-114); Potassium* 3.8 mmol/L (3.6-5.1); Sodium* 133 mmol/L (135-149)
[2022-07-06 19:35] LABS: Creatinine* 0.6 mg/dL (0.5-1.5); Est. Creatinine Clearance* 167.33; Estimated Glomerular Filt Rate 122 ml/min
[2022-07-06 19:36] LABS: Blood Urea Nitrogen* 13 mg/dL (5-24); Calcium* 8.9 mg/dL (8.4-10.6); Carbon Dioxide* 28 mmol/L (20-32); Glucose* 282 mg/dL (60-115)
[2022-07-06 19:39] LABS: C Reactive Protein* 8.1 mg/dL (0.5-1.0)
[2022-07-06 19:45] LABS: Lactate* 1.3 mmol/L (0.5-1.9)
[2022-07-06 19:53] LABS: SARS PCR* Negative SARS-CoV-2 (Negative)
[2022-07-06] MEDS: 0.9 % SODIUM CHLORIDE 1000 ml 1,000 ML IV (21:30)
[2022-07-06] MEDS: cefTRIAXone 1 GM in 0.9 % SODIUM CHLORIDE Mini-bag 100 ML IVPB (21:35)
--- NOTE | 2022-07-06 22:42 | PM.IMCN1 ---
Date of Consult Consult date: 07/06/22 Requesting Physician: Other (ER physician.) Primary Care Provider: Not a Local Provider Consult Narrative Reason for consult: Admission support, and cross coverage care for this hospitalization. Narrative: [facility] CONSULTATION NOTE: The [facility] hospitalist was contacted by the local ER provider with a request for consultation for admission support and cross coverage services for this patient. Provider requesting [facility] Hospitalist Services: Dr. Grey Tineo MD. Chief Complaint: Right foot infection. HPI: This patient is a 42-year-old gentleman with a history of diabetes mellitus type 2 who has had repeated visits to the ER for care pertaining to an infection involving the medial aspect of the right large toe and the base of the metatarsal phalangeal joint. The area of infection is ulcerated and was last assessed in the ER on 06/26/2022 when he saw a automotive welder was consulted to assist in the patient's care. An x-ray of this foot identified the ulceration and underlying soft tissue inflammation. No signs of osteomyelitis were seen at that time. The patient is a poor historian and reports that has a history of traumatic brain injury and takes medications for psychiatric disorder. This appears to have a significant impact on his ability to recall his past and more recent medical history, especially as it pertains to the infection in his right foot. The patient is noted to be homeless. On the last visit the patient was prescribed levofloxacin and was advised to follow-up with the automotive welder he saw in the ER. The patient was not able to follow through with either of the steps, according to his sister who accompanied him. According to the sister the patient started developing bilateral foot ulcers about 2 to 3 weeks ago. He returns today with complaints of increasing redness, swelling, and pain surrounding the foot ulcers and extending proximally up the dorsum of the foot. He also complains of increasing pain radiating from the foot to the lateral thigh with weightbearing. He claims no fevers, chills, or malaise. An x-ray was read he repeated today by the ER provider. This study showed subtle evidence of cortical dehiscence in the medial aspect of the large toe phalanx, consistent with osteomyelitis and overlying skin ulcers noted. The erythema in the foot is more extensive than 1 last seen on 06/26/2022. There is a large callus over lying the inferolateral aspect of the right fifth toe. This does not appear to be ulcerated or significantly inflamed. He also has an ulcer overlying the lateral aspect of the left fifth toe. There appears to be less inflammation and there is an overlying dry eschar. The laboratory survey reveals leukocytosis on hemogram with a WBC of 16,750. The chemistry panel is unremarkable except for an elevated blood glucose level and an elevated CRP (8.1). Blood cultures x2 were collected and purulence was collected for culture from the right medial foot ulcer. The ER provider has requested admission of this patient for an infected diabetic ulcer with suspected underlying osteomyelitis involving the medial side of the large toe and the base of his toe. Podiatry was again contacted and they agreed to see the patient following admission. Empiric antibiotics were started after blood collection. Antibiotics selected are vancomycin and Rocephin. Pertinent PMH: 1. DM type II; subacute bilateral foot ulcers; history of traumatic brain injury; history of a psychiatric illness that the patient is not able to specify. 2. Also, refer to the problem list in the ER provider's encounter note. History Reviewed In The Medical Record: Home Medications. Pertinent Social History. Recent OPD/ER Progress Notes. EXAM: Performed via an interactive video with the assistance of the bedside nurse. The Bedside RN is Olga. VS: T 99. P 81. RR 16. BP 122/70. SPO2 92%. FIO2 room air. GENERAL: Alert and oriented x person, time, place, and situation. Answers questions appropriately. Follows commands normally. A low level of distress is displayed. Pain level claimed: 8/10, due to right large toe pain about the ulcerated and inflamed region of the medial large right toe. HEENT: NC/AT. Facial features symmetric. PERRL. EOM function WNL. No jaundice seen. No cyanosis seen. Oropharynx is visualized. No erythema or exudates seen. NECK: Supple. No JVD seen. CHEST: Chest wall is not tender. Respiratory motion appears normal. LUNGS: Breath sounds heard in all lung valles, bilaterally. No coarse rhonchi heard. No wheezes heard. No rales heard. HEART: RRR. No murmurs heard. No gallops heard. Full, symmetric pulses palpated. ABD: Bowel sounds present in 4 quadrants. Soft. No rebound rigidity or guarding palpated. : Not examined. EXTREMITIES: No dependent leg edema seen. Pulses are palpable in both feet. The right foot is remarkable for a ulcerated, erythematous region medial to the base of the great toe and more distally along the medial aspect of the large right toe phalanx. Purulence is draining from this ulcer. A significant amount of redness and swelling extends up over the medial and dorsal aspect of the right foot. A large callus overlies the lateral aspect of the right foot near the base of the fifth toe. This does not appear to be infected or ulcerated. An ulcer is noted over the lateral aspect of the left fifth toe. There is a dry eschar with no drainage from this ulcer. No significant erythema seen at the base of this toe or underlying the ulcer eschar. SKIN: No generalized rashes seen. Skin turgor, temperature, and color is generally normal. NEUROLOGICAL: Awake. Oriented x 4. Moves all extremities purposefully or on command. Cranial nerve 2-12 function WNL. Strength symmetric. No upper extremity pronator drift seen. No tremors seen. No myoclonus seen. LAB Data: Reviewed. Hgb 16.1, HCT 48.2, PLT 352, WBC 16,750. NA 133, K3.8, CL 99, CO2 28, BUN 13, creatinine 0.6, glucose 282, CRP 8.1. EKG: None. RADIOLOGY REPORTS: Reviewed and discussed above. ASSESSMENT: 1. Infected diabetic ulcer involving the medial aspect of the right large toe. 2. Osteomyelitis involving the large right toe. 3. Noninfected ulcers on the lateral aspect of the right foot and lateral aspect of the left foot. 4. DM type II, historically suboptimally managed. 5. It should be noted that the patient did also complain of having loose stools was he believes started earlier today. He had some cramping with loose stools. He does not recall whether or not he took oral antibiotics as prescribed following his last assessment in the ER on 06/26/2022 when he was prescribed levofloxacin. Self-reported diarrhea. The patient believes he started having loose stools earlier today. He does not recall whether or not he took oral antibiotics as prescribed on 06/26/2022. 6.Reported history of TBI. 7. Self-reported history of a mental health disorder requiring medical management in the past. PLANS: 1. The [facility] Service will provide cross coverage care during this hospitalization. 2. Agree with empiric antibiotic coverage. Vancomycin and Rocephin is an adequate regimen for now. 3. Agree with wound and blood cultures. Results pending 4. Agree with podiatric consultation to manage foot ulcers, and possibly secure a bone biopsy and culture. 5. Analgesics for pain control. 6. Blood glucose management during this hospitalization. Patient will need further treatment and teaching steps for self-management of his DM type II. 7. Collect stool for culture and sensitivities and a screening assay for C. difficile toxin. RECOMMENDATIONS: 1. DVT prevention steps. 2. Diabetic diet. 3. Posthospitalization wound care follow-up and treatment. I have reviewed the case in consultation. Information has been gathered from conversations with the local provider, a review of the patient's chart, and by a patient evaluation. Based on the current information and the patient's current medical condition, I certify the patient meets criteria for: [ ] Acute inpatient status with the expectation of a patient stay of more than 2 midnights, but less than 96 hrs. [ ] Swing bed. [XXX] Observation status with an expected stay of less than 2 midnights. Thank you for [facility]. This service is available for further assistance as requested by your care team by calling [phone]. [facility] Social History Highest level of school completed/degree received: don't know Smoking Status: Current every day smoker What tobacco products do you use: cigarettes Smoking packs per day: 1.5 Smoking cigarettes per day: 30.0 Do you use any of these nicotine containing products: None Second hand tobacco smoke exposure: No How often do you have a drink containing alcohol: never AUDIT-C Alcohol total score: 0 Non-prescribed substance use: denies use Caffeine: Yes service: No Meds Home Medications and Allergies Home Medications Medication Instructions Recorded Confirmed Type aripiprazole 20 mg tablet mg 06/26/22 History blood sugar diagnostic (Accu-Chek 06/26/22 06/26/22 History Guide test strips) blood-glucose meter (Accu-Chek 06/26/22 06/26/22 History Guide Me Glucose Meter) escitalopram oxalate 20 mg tablet mg 06/26/22 History insulin aspart U-100 100 unit/mL subcut 06/26/22 History (3 mL) subcutaneous pen (Novolog FlexPen U-100 Insulin aspart) insulin glargine 100 unit/mL (3 unit subcut 06/26/22 History mL) subcutaneous pen (Lantus Solostar U-100 Insulin) lancets (Accu-Chek Softclix 06/26/22 06/26/22 History Lancets) loratadine 10 mg tablet mg 06/26/22 History pen needle, diabetic 31 gauge x 06/26/22 06/26/22 History 5/16 (BD Ultra-Fine Short Pen Needle) prazosin 1 mg capsule mg 06/26/22 History rosuvastatin 40 mg tablet mg 06/26/22 History trazodone 50 mg tablet mg 06/26/22 History Allergies Allergy/AdvReac Type Severity Reaction Status Date / Time No Known Drug Allergies Allergy Verified 07/06/22 18:13 Exam Const: Vital Signs, click to edit/add: Vital Signs - 24 hr 07/06/22 18:09 07/06/22 19:08 07/06/22 19:15 Temperature 99.0 F Pulse Rate 95 86 Pulse Rate [Pulse Oximeter] 85 Respiratory Rate 16 Blood Pressure Blood Pressure [Ri t Upper Arm] 139/86 Pulse Oximetry 96 95 93 Oxygen Delivery Me thod Room Air 07/06/22 19:31 07/06/22 19:32 07/06/22 19:45 Temperature Pulse Rate 90 88 84 Pulse Rate [Pulse Oximeter] Respiratory Rate Blood Pressure 126/90 H Blood Pressure [Ri t Upper Arm] Pulse Oximetry 90 90 90 Oxygen Delivery Me thod 07/06/22 20:00 07/06/22 20:01 07/06/22 20:15 Temperature Pulse Rate 83 83 81 Pulse Rate [Pulse Oximeter] Respiratory Rate Blood Pressure 127/70 Blood Pressure [Ri t Upper Arm] Pulse Oximetry 90 92 92 Oxygen Delivery Me thod Labs Labs: Short CBC 07/06/22 Range/Units 18:50 WBC 16.75 H (4.50-11.00) K/uL Hgb 16.1 (13.5-17.5) gm/dL Hct 48.2 (37.0-53.0) % Plt Count 352 (140-440) K/uL BMP 07/06/22 18:50 Sodium 133 L Potassium 3.8 Chloride 99 Carbon Dioxide 28 BUN 13 Creatinine 0.6 Glucose 282 H Calcium 8.9 Assessment and Plan Assessment and plan (1) Chronic ulcer of great toe of right foot: Status: Acute (2) Infection of great toe: Status: Acute (3) Osteomyelitis: Status: Acute (4) Diabetes: Status: Acute Plan SEE ABOVE.
[2022-07-07] VITALS (8 sets, daily range): BP systolic 98–158; BP diastolic 60–96; PULSE 64–97; RESP 16–94; TEMP 36.7–38; O2SAT 92–95
[2022-07-07] MEDS: 0.9 % SODIUM CHLORIDE 1000 ml 1,000 ML 100 ML IV ×2 (00:44→17:12)
[2022-07-07] MEDS: ACETAMINOPHEN 325 MG TABLET PO ×2 (04:13→15:58)
[2022-07-07] MEDS: TRAMADOL HCL 50 MG TABLET PO ×3 (04:13→23:45)
[2022-07-07] MEDS: OMEPRAZOLE 20 MG CAPSULE DR 40 MG PO (06:27)
--- NOTE | 2022-07-07 06:30 | P.PODCN_ITS ---
[facility] - Podiatry Data of Consult Time Seen by Provider: 06:00 Date Seen: 07/07/22 Consult date: 07/07/22 Requesting physician: Douglas Marrero MD Primary care provider: Not a Local Provider Consult Narrative Reason for consult: Osteomyelitis right great toe Narrative: This is a 42-year-old male with diabetes who presented to the emergency department with worsening right great toe wound. He has been previously seen in the emergency department and was supposed to start antibiotics and follow-up with myself and outpatient clinic. patient did not start antibiotics and did not show for his appointment. He presented to the emergency department last night with worsening pain and wound. He states the wound has been present for 2-3 weeks. He admits it could be longer. He does not recall any injury or trauma to the area. He has been homeless. Currently he denies any fever, chills, nausea or vomiting. He does not recall ever having a ulceration in this area before. cc:: CC: Douglas Marrero MD Review of Systems Status of ROS: Reports: 10 or more systems reviewed and unremarkable except as noted in History and below [facility] Social History Highest level of school completed/degree received: don't know Smoking Status: Current every day smoker What tobacco products do you use: cigarettes Smoking packs per day: 1.5 Smoking cigarettes per day: 30.0 Do you use any of these nicotine containing products: None Second hand tobacco smoke exposure: No How often do you have a drink containing alcohol: never AUDIT-C Alcohol total score: 0 Non-prescribed substance use: denies use Caffeine: Yes service: No Exam Narrative: Exam Narrative: General: No distress. Vascular: Palpable pedal pulses right foot DP and PT. Capillary fill time less than 3 seconds all digits. Neuro: Diminished sensation to light touch the level of the digits. Derm: No edema. Mild erythema adjacent to large plantar medial wound great toe. No erythema to the dorsal or plantar foot currently. The large plantar medial wound located at the IPJ and proximal measures approximately 3.5 cm x 2.5 cm. Initially it was covered by a soft and loose eschar with purulent drainage beneath. Following debridement there is exposed bone of the proximal phalanx. Significant soft tissue necrosis throughout the wound prior to debridement. After debridement there was improved bleeding margins with still some level of infected tissue. Wound does not probe proximal or track along fascial planes. Musculoskeletal: No gross deformity. Muscle strength 5/5 all quadrants. Labs: WBC 16.75 with left shift, CRP 8.1 X-rays right great toe: Probable osteomyelitis proximal phalanx. Const: Vital Signs, click to edit/add: Vital Signs - 24 hr 07/06/22 18:09 07/06/22 19:08 07/06/22 19:15 Temperature 99.0 F Pulse Rate 95 86 Pulse Rate [Pulse Oximeter] 85 Respiratory Rate 16 Blood Pressure Blood Pressure [Le ft Arm] Blood Pressure [Ri ght Arm] Blood Pressure [Ri ght Upper Arm] 139/86 Pulse Oximetry 96 95 93 Oxygen Delivery Me thod Room Air 07/06/22 19:31 07/06/22 19:32 07/06/22 19:45 Temperature Pulse Rate 90 88 84 Pulse Rate [Pulse Oximeter] Respiratory Rate Blood Pressure 126/90 H Blood Pressure [Le ft Arm] Blood Pressure [Ri ght Arm] Blood Pressure [Ri ght Upper Arm] Pulse Oximetry 90 90 90 Oxygen Delivery Me thod 07/06/22 20:00 07/06/22 20:01 07/06/22 20:15 Temperature Pulse Rate 83 83 81 Pulse Rate [Pulse Oximeter] Respiratory Rate Blood Pressure 127/70 Blood Pressure [Le ft Arm] Blood Pressure [Ri ght Arm] Blood Pressure [Ri ght Upper Arm] Pulse Oximetry 90 92 92 Oxygen Delivery Me thod 07/06/22 23:00 07/06/22 23:00 07/07/22 03:00 Temperature 98.7 F 99.0 F Pulse Rate Pulse Rate [Pulse Oximeter] 94 78 Respiratory Rate 20 18 Blood Pressure Blood Pressure [Le ft Arm] 144/89 H Blood Pressure [Ri ght Arm] 132/73 Blood Pressure [Ri ght Upper Arm] Pulse Oximetry 94 94 93 Oxygen Delivery Me thod Room Air Room Air Room Air 07/07/22 04:15 Temperature 98.0 F Pulse Rate Pulse Rate [Pulse Oximeter] 97 Respiratory Rate 18 Blood Pressure Blood Pressure [Le ft Arm] Blood Pressure [Ri ght Arm] 158/93 H Blood Pressure [Ri ght Upper Arm] Pulse Oximetry 95 Oxygen Delivery Me thod Room Air Documenting provider has reviewed patient's vital signs: yes Common normals: no apparent distress General appearance: cooperative Orientation/consciousness: Yes awake Neuro: Sensorium/orientation: awake Assessment and Plan Assessment and plan (1) Osteomyelitis: Status: Acute (2) Infection of great toe: Status: Acute (3) Chronic ulcer of great toe of right foot: Status: Acute Plan Assessment: Diabetic foot infection with probable osteomyelitis right great toe. Plan: Recommend MRI today. Discussed with Matt that if there is infection within the great toe that amputation would be his best option due to the substantial size of the wound and underlying infection. We discussed that he would need MRI should help us determine extent of the infection. I reviewed d ebriding the wound bedside today. He may need further debridement in the operating room regardless of bone infection the future. He expresses understanding. Continue with IV antibiotics. Verbal consent was obtained for sharp debridement of the ulceration. Saline moistened gauze and Mepilex border dressing should be changed twice daily. Wound cultures obtained by the emergency department are pending. Possible great toe amputation tomorrow based on MRI findings. Procedure: After verbal consent and sterile prep sharp excisional debridement was performed on the right great toe. Necrotic subcutaneous tissue was sharply excised with a #10 Scalpel blade back to healthy bleeding margins. Debridement was down to but did not include bone. Deepest layer of debridement was subcutaneous tissue. Saline moistened gauze was packed into the wound and covered with Mepilex border dressing. Nail Debridement Qualifies If: Qualifiers If:: A patient qualifies for nail debridement if they have: 1 class A finding (Q7) 2 class B findings (Q8) OR 1 class B & 2 class C findings in addition to a primary condition (Q9)
[2022-07-07 06:51] LABS: Basophils Percent Auto 0.2 % (0.0-3.0); Eosinophils Percent Auto 0.4 % (0.0-7.0); Hematocrit 43.7 % (37.0-53.0); Hemoglobin* 14.7 gm/dL (13.5-17.5); Immature Granulocytes Pct Auto 0.5 %; Lymphocytes Percent Auto 12.2 % (20-44); Mean Corpuscular HGB Conc 34 gm/dL (32-36); Mean Corpuscular Hemoglobin 28 pg (26-34); Mean Corpuscular Volume 85 fL (80-100); Monocytes Percent Auto 10.8 % (0.0-11.0); Neutrophils Percent Auto 75.9 % (42.0-72.0); Platelet Count* 312 K/uL (140-440); RDW Coefficient of Variation % 12.6 % (11.5-15.5); Red Blood Count 5.17 m/uL (4.30-5.90); White Blood Count* 12.45 K/uL (4.50-11.00)
[2022-07-07 06:55] LABS: Slide Review Reflex No
[2022-07-07 07:00] LABS: Albumin* 3.3 g/dL (3.3-5.0); Chloride* 105 mmol/L (96-114); Potassium* 3.7 mmol/L (3.6-5.1); Sodium* 134 mmol/L (135-149)
[2022-07-07 07:02] LABS: Creatinine* 0.5 mg/dL (0.5-1.5); Estimated Glomerular Filt Rate 129 ml/min
[2022-07-07 07:03] LABS: Alanine Aminotransferase* 14 U/L (4-50); Alkaline Phosphatase* 100 U/L (40-150); Aspartate Amino Transferase* 10 U/L (12-35); Bilirubin Total* 0.7 mg/dL (0.1-1.5); Blood Urea Nitrogen* 10 mg/dL (5-24); Calcium* 8.1 mg/dL (8.4-10.6); Carbon Dioxide* 27 mmol/L (20-32); Glucose* 251 mg/dL (60-115); Total Protein* 7.2 g/dL (6.0-8.3)
--- NOTE | 2022-07-07 07:07 | CRLHL7_ITS ---
For Patients: As a result of the Century Cures Act, medical imaging exams and procedure reports are released immediately into your electronic medical record. You may view this report before your referring provider. If you have questions, please contact your health care provider. HISTORY: Great toe osteomyelitis. TECHNIQUE: MRI right foot without contrast. Only coronal T1, coronal STIR, and axial T1 sequences were completed. COMPARISON: Right great toe radiographs 07/06/2022. FINDINGS: Severe motion artifact on the coronal T1 sequence. Wound in the medial great toe. Marrow edema in the 1st proximal greater than distal phalanges. Erosion of the medial-plantar cortex of the 1st proximal phalanx with shallow subcortical T1 hypointense marrow signal. Skin thickening and edema like soft tissue signal around the wound. No fluid collection. Lateral forefoot wound at the 5th MTP joint. Marrow edema in the head of the 5th metatarsal and in the base of the 5th proximal phalanx without marrow replacement on T1. Skin thickening and edema like signal in the soft tissues around the lateral forefoot wound. Marrow edema in bipartite medial hallux sesamoid. Lisfranc ligament appears intact. No significant arthrosis. Edema in the foot musculature. IMPRESSION: 1. Incomplete exam. Completed sequences are compromised by motion artifact. 2. Medial great toe wound with surrounding edema and/or cellulitis. Erosion of the medial-plantar cortex of the 1st proximal phalanx underlying the wound, better seen on recent radiographs. Marrow edema in the 1st proximal phalanx. Findings are suspicious for osteomyelitis although osteomyelitis is difficult to confirm with high specificity due to the incomplete and motion compromised exam. Marrow edema in the 1st distal phalanx without osteomyelitis. 3. Lateral forefoot wound with surrounding edema and/or cellulitis. Marrow edema in the 5th metatarsal head and 5th proximal phalanx without osteomyelitis. 4. No fluid collection. 5. Muscle edema from denervation or myositis. Dictated by Jose Alva MD @ 07/07/2022 1:45:49 PM (Electronically Signed)
--- NOTE | 2022-07-07 08:22 | PC.NURSE ---
END OF SHIFT NOTE: PT CALM AND COOPERATIVE WITH CARES. PT AMBULATES WITH UNSTEADY GAIT D/T RIGHT FOOT ULCERS. PT WITH IMPAIRED MEMORY SECONDARY TO TBI. PT TO HAVE MRI 07/07. PT REPORTS PAIN TO RIGHT FOOT THAT SHOOTS ALL THE WAY UP TO MY HIP. PT EDUCATED ON IS AND ENCOURAGED USE. ANGY- PODIATRY SAW PT AT BEDSIDE THIS MORNING. DISCUSSED RIGHT FOOT INFECTION TO BONE WITH POSSIBILITY TO AMPUTATE PENDING MRI RESULTS. R GREATER TOE WOUND DEBRIDED BY DR AND DRESSED WITH WET TO DRY DRESSING OF STERILE SOAKED 2X2 PACKED COVERED WITH MEPILEX. RIGHT 5TH DIGIT TOE COVERED WITH MEPILEX.
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
--- NOTE | 2022-07-07 10:05 | PC.SOCIAL ---
Addendum entered by SARAH DuganSW 07/13/22 15:24: Phone number for Yohana Waggoner is incorrect in previous note. correct phone number is [phone]. Original Note: Social work: Received call from [facility] Vulnerable Adult worker, Heather Mckee, stating this pt has been living at the [facility]'s homeless long term but that he can not return at discharge because he is unable to care for himself. Per Heather, he does not properly store or take his medication as prescribed and is unable to bath himself or take care of his diabetes needs. He has no caregiver or assistance in his current living situation. Per Heather, pt has a mental health casework specialist who was just assigned through [facility], Yohana Waggoner, . Heather is recommending pt be discharged to a jail facility if there is a need for this level of care with the keno terminal operator plan from the nursing facility for an assisted living placement at a facility that can manage his medical and mental health needs, such as [facility] in [place]. Heather states [facility] has assisted pt in applying for Medical Assistance which should be in place soon and would cover the cost of an assisted living placement. Heather states she expects pt to agree to placement or services as recommended by the hospital as he has voiced that he needs more physical help than he had prior to hospitalization. lineworker to follow up as needed regarding discharge plan.
[2022-07-07] MEDS: LORazepam 2 MG/ML inj 1 MG IVP ×2 (12:24→13:10)
[2022-07-07] MEDS: MORPHINE 4 MG/ML INJ IVP (13:53)
--- NOTE | 2022-07-07 14:19 | PC.NURSE ---
Addendum entered by Irene Burciaga RN 07/07/22 14:48: Please disregard the nursing note written below, it DOES NOT APPLY to SYLVIA PRAKASH...cask maker error by Brayden Burciaga RN Original Note: Pt eval by Dr. Marinelli, PT, OT and myself. Pt fed himself bkfst while up in recliner with adaptive silverware. Ambulated to Therapy room with Sylvia. Poor fluid intake, tolerating food well. Pt did not exhibit dysphagia with am med pass, he took 2 small pills together and one medium pill by itself with sips of applesauce. Tele indicates sinus bradycardia. Pt denies CP and SOB. Mild right sided deficit, however booth usher and foot pushes are almost equal in strength with initial assessment. Bed and chair alarms engaged per safety protocol. Report will be given to oncpiter shift RN @ 1500.
--- NOTE | 2022-07-07 14:26 | PC.NURSE ---
Pt calm and cooperative with nursing cares, he slept between interventions. Dr. Hayden in to change dressing on right great toe and lateral pinky toe just prior to shift change. He discussed the need for more information from MRI. Plan for possible amputation tomorrow of part of right foot d/to severe infection/osteomyelitis. MRI screening form completed and OBS form per protocol. Radiology passport. BG 293 prior to bkfst requiring 3 units of SS insulin. BG 245 prior to lunch and pt received 2 units of Novolog insulin from SS. Pt taken to MRI for views of his right foot, he was unable to tolerate procedure d/to restlessness and mild claustrophobia. IV Ativan 1mg given at 1220 in preparation for second attempt at MRI. Pt remained restless in MRI so RN went to MRI to give additional dose of ativan 1mg IV @ 1310pm. Pt returned to floor, IV Vanco infusing. Then pt was restless, tapping his feet on the mattress..fruit plate with cottage cheese ordered for lunch. Pt stated his foot pain was 9 out of 10 post procedure. Pt pulled off his gown, wearing briefs, multiple tattoos. RN administered 4 mg IV morphine and gave 100mg of PO tramadol for pain management. Bed claims counsel requested by pt and CNAs alerted. Pt sleeping at this time. Stool sample for H. Pylori and culture pending at this time, supplies in patient bathroom. Report will be given to oncoming shift RN at 3PM.
--- NOTE | 2022-07-07 15:19 | PC.SOCIAL ---
Met with pt in pt's room to discuss discharge plans. Pt became emotional when talking about his current living situation. Pt began crying when discussing that his left him and he is unable to see his children. Pt reports that the relationship ended last fall before and pt was able to stay with a sister for a few months. Pt reports that he is working with Jimi at [facility] and is currently living in a housing apartment through [facility]. Pt believes he started staying in the apartment in the beginning of June, but is unsure of the date. Pt believes he is able to stay in the short-term apartment for 3 months maximum and reports that he is working with the [facility] to find longer term housing. Pt stated to this worker no wonder people don't want to live. This worker asked pt if he was feeling suicidal and he stated he was not, and clarified that he is emotional from his life circumstances. This worker asked pt if he sees a mental health therapist and pt stated pt did not. This worker offered a list of [facility] mental health therapists so pt could establish mental health services and pt accepted. Provided pt a resource for mobile crisis if needed as an emergency resource when pt is discharged home. Pt informed that pt does not have transportation so when it is time to discharge pt will need assistance with locating transportation. Informed pt that social work can assist when discharge plans are made. Social work will follow up as necessary.
[2022-07-07] MEDS: PRAZOSIN HCL 1 MG CAPSULE PO (20:52)
[2022-07-07] MEDS: cefTRIAXone 2 GM in 0.9 % SODIUM CHLORIDE Mini-bag 100 ML IVPB (20:52)
[2022-07-07] MEDS: ROSUVASTATIN CALCIUM 10 MG TABLET 40 MG PO (20:53)
[2022-07-07] MEDS: MELATONIN 3 MG TABLET PO (20:55)
--- NOTE | 2022-07-07 22:23 | PC.NURSE ---
Shift [id number]- Patient is sleepy, though rousable, throughout shift. He does not attempt to participate in cares much. Dressing to right great toe changed- small amount of drainage to old bandage. He denies pain. Meal tray brought in, he is reminded and asked if he would like to eat, states he does, but he sleeps instead. Temperature is elevated this afternoon- tylenol given- temperature decreased after administration.
[2022-07-08] VITALS (10 sets, daily range): BP systolic 103–175; BP diastolic 59–88; PULSE 63–83; RESP 16–18; TEMP 36.5–37.6; O2SAT 92–96
[2022-07-08] MEDS: ACETAMINOPHEN 325 MG TABLET PO (03:03)
[2022-07-08] MEDS: MORPHINE 4 MG/ML INJ IVP (03:04)
--- NOTE | 2022-07-08 04:21 | PC.NURSE ---
end of shift. pt has been tired and sleepy. pain in legs 2-8 he is getting po pain meds and IV pain meds. he seems comfortable in the bed,. he is alert, but is confused at times. when scanning his ID bracelet he wanted me to scan his IV site. ? when doing B/P he want to cover up as soon as BP cuff was appled and before pulse Sao2 can be placed on. .? Dressing to right great toe C/D/I he has been npo since midnight, he did get a dose of Tylenol 0300. ? IV is patent.
[2022-07-08] MEDS: OMEPRAZOLE 20 MG CAPSULE DR 40 MG PO (06:39)
[2022-07-08] MEDS: 0.9 % SODIUM CHLORIDE 1000 ml 1,000 ML 100 ML IV (06:41)
[2022-07-08 06:43] LABS: Basophils Absolute Auto 0.02 K/uL (0.00-0.30); Basophils Percent Auto 0.2 % (0.0-3.0); Eosinophils Absolute Auto 0.12 K/uL (0.00-0.50); Eosinophils Percent Auto 1.2 % (0.0-7.0); Hematocrit 42.1 % (37.0-53.0); Hemoglobin* 14.1 gm/dL (13.5-17.5); Immature Granulocytes Abs Auto 0.03 K/uL (0.00-0.30); Immature Granulocytes Pct Auto 0.3 %; Lymphocytes Percent Auto 16.8 % (20-44); Mean Corpuscular HGB Conc 34 gm/dL (32-36); Mean Corpuscular Hemoglobin 28 pg (26-34); Mean Corpuscular Volume 85 fL (80-100); Monocytes Percent Auto 10.9 % (0.0-11.0); Neutrophils Percent Auto 70.6 % (42.0-72.0); Platelet Count* 309 K/uL (140-440); RDW Coefficient of Variation % 12.6 % (11.5-15.5); Red Blood Count 4.97 m/uL (4.30-5.90); White Blood Count* 10.19 K/uL (4.50-11.00)
[2022-07-08 06:48] LABS: Slide Review Reflex No
[2022-07-08 06:59] LABS: Chloride* 102 mmol/L (96-114); Potassium* 3.2 mmol/L (3.6-5.1); Sodium* 135 mmol/L (135-149)
[2022-07-08 07:02] LABS: Creatinine* 0.5 mg/dL (0.5-1.5); Estimated Glomerular Filt Rate 129 ml/min
[2022-07-08 07:03] LABS: Blood Urea Nitrogen* 6 mg/dL (5-24); Calcium* 7.8 mg/dL (8.4-10.6); Carbon Dioxide* 29 mmol/L (20-32); Glucose* 94 mg/dL (60-115)
[2022-07-08 07:20] LABS: C Reactive Protein* 14.4 mg/dL (0.5-1.0)
[2022-07-08] MEDS: ESCITALOPRAM 10 MG TABLET 20 MG PO (08:55)
--- NOTE | 2022-07-08 13:14 | PC.SOCIAL ---
Social work: Received call from Heather Mckee at [facility], stating that Jimi from the [facility], is coming to the hospital today to meet with pt, complete an MA application and tell him he is unable to return to the [facility] housing he was living in prior to hospitalization. Heather states pt has already been screened for the waiver program and does qualify, but the waiver can not be put in place until the new MA application is submitted. Met with pt, and explained the benefit to him of completing an MA application as it will cover services he may need at discharge. Pt is understanding of this and agrees to the assistance of the [facility] in completing the application with a [employer] navigator from that agency. He gave permission for social group worker to contact the [facility] regarding this visit and application. Pt is aware of recommendation that he either stay with someone who can assist him at discharge or that he go to a facility where assistance would be provided. Pt indicates his preference to go to his cousin's home at discharge and plans to call her to discuss this possibility. With pt's permission, called Jimi at [facility], who states a [employer] navigator and he will try to come today to complete the MA application and tell pt he is unable to return to their housing at discharge, but may not be able to come until tomorrow. bulk intake worker to follow up as needed.
--- NOTE | 2022-07-08 14:59 | PM.IMPN1 ---
Progress Note: A&P Assessment and plan (1) Osteomyelitis: Problem details: - appreciate input from Podiatry - continue vancomycin and ceftriaxone; wound culture collected on admission + for Staph aureus, only resistant to Bactrim - MRI 07/07: IMPRESSION: 1. Incomplete exam. Completed sequences are compromised by motion artifact. 2. Medial great toe wound with surrounding edema and/or cellulitis. Erosion of the medial-plantar cortex of the 1st proximal phalanx underlying the wound, better seen on recent radiographs. Marrow edema in the 1st proximal phalanx. Findings are suspicious for osteomyelitis although osteomyelitis is difficult to confirm with high specificity due to the incomplete and motion compromised exam. Marrow edema in the 1st distal phalanx without osteomyelitis. 3. Lateral forefoot wound with surrounding edema and/or cellulitis. Marrow edema in the 5th metatarsal head and 5th proximal phalanx without osteomyelitis. 4. No fluid collection. 5. Muscle edema from denervation or myositis. Dictated by Jose Alva MD @ 07/07/2022 1:45:49 PM Status: Acute (2) Infection of great toe: Status: Acute (3) Diabetes: Problem details: - A1C 14.1 02/28 - continue Accu-Cheks and SSI Status: Acute (4) Visual hallucinations: Problem details: - diagnosed as paranoid schizophrenic per chart review - Trey Kim is Psychiatrist - receives Abilify Q28 days, last administration 06/18/22 Status: Acute (5) Hypokalemia: Problem details: - replace and follow Status: Acute Plan - surgery today - social work following given housing insecurity Subjective Date Seen: 07/08/22 Interval history: No acute events overnight. Matt has no concerns for the hospitalist team. Dr. Hayden of Podiatry is planning to take him him to the OR today for an amputation. Exam Narrative: Exam Narrative: GEN: Alert and laying comfortably in bed, nontoxic in appearance HEENT: EOMIs bilaterally, no scleral icterus CV: RRR, No concerning murmurs, rubs, or gallops R: LCTA bilaterally without concerning wheezing, air movement adequate Ext: wwp, no concerning edema, toe not formally examined today as it is wrapped Neuro: Nonfocal Psych: Appropriate for comorbidities Const: Vital Signs, click to edit/add: Vital Signs - 24 hr 07/07/22 15:30 07/07/22 17:00 07/07/22 19:10 Temperature 100.4 F H 98.5 F 98.5 F Pulse Rate [Left A pical] 79 72 Pulse Rate [Left D orsalis Pedis] 79 Pulse Rate [Pulse Oximeter] 94 Respiratory Rate 18 18 Blood Pressure [Le ft Arm] Blood Pressure [Ri ght Arm] 137/77 111/73 Pulse Oximetry 92 94 Oxygen Delivery Me thod Room Air Room Air 07/07/22 23:45 07/07/22 23:45 07/08/22 03:11 Temperature 98.7 F 98.5 F Pulse Rate [Left A pical] 64 64 66 Pulse Rate [Left D orsalis Pedis] 66 Pulse Rate [Pulse Oximeter] Respiratory Rate 16 16 16 Blood Pressure [Le ft Arm] Blood Pressure [Ri ght Arm] 98/60 103/59 L Pulse Oximetry [address] Room Air Room Air 07/08/22 08:17 07/08/22 11:40 Temperature 98.2 F 99.1 F Pulse Rate [Left A pical] Pulse Rate [Left D orsalis Pedis] Pulse Rate [Pulse Oximeter] 71 71 Respiratory Rate 16 16 Blood Pressure [Le ft Arm] 131/81 149/79 H Blood Pressure [Ri ght Arm] Pulse Oximetry 95 94 Oxygen Delivery Me thod Room Air Room Air Labs Labs: Laboratory Results - last 24 hr 07/08/22 07/08/22 07/08/22 06:18 06:18 06:18 WBC Cancelled 10.19 Corrected WBC Cancelled RBC Cancelled 4.97 Hgb Cancelled 14.1 Hct Cancelled 42.1 MCV Cancelled 85 MCH Cancelled 28 MCHC Cancelled 34 RDW Coeff of David Cancelled 12.6 Plt Count Cancelled 309 Neut % (Auto) Cancelled 70.6 Lymph % (Auto) Cancelled 16.8 L [place] % (Auto) Cancelled 10.9 Eos % (Auto) Cancelled 1.2 Baso % (Auto) Cancelled 0.2 Neut # (Auto) Cancelled 7.20 H Lymph # (Auto) Cancelled 1.70 [place] # (Auto) Cancelled 1.10 H Eos # (Auto) Cancelled 0.12 Baso # (Auto) Cancelled 0.02 Sodium 135 Potassium 3.2 L Chloride 102 Carbon Dioxide 29 BUN 6 Creatinine 0.5 Estimated Creat Clear 200.80 Estimated GFR 129 Glucose 94 Calcium 7.8 L C-Reactive Protein 14.4 H
[2022-07-08] MEDS: POTASSIUM CHLORIDE 10 MEQ/100 ML PIGGYBACK 100 MEQ IVPB ×2 (15:48→19:14)
[2022-07-08] MEDS: BUPIVACAINE 0.5% 30 ML INJECTION (16:55)
--- NOTE | 2022-07-08 18:18 | W.ANESCHARGE ---
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
--- NOTE | 2022-07-08 18:28 | PM.GSPRC ---
Operative Note Date of procedure: 07/08/22 Pre-op diagnosis: 1. Osteomyelitis right great toe 2. Diabetic ulcer with abscess right lateral foot Post-op diagnosis: 1. Osteomyelitis right great toe 2. Diabetic ulcer with abscess right lateral foot Type of Procedure: 1. Amputation of right great toe 2. I and D right lateral foot Indications: MRI confirmed osteomyelitis the right great toe. Also has extensive and large open wound with increasing necrotic tissue. Surgical amputation of the great toe is recommended. Worsening lateral ulcer now has small abscess with draining purulence laterally. This is in need of surgical I& D. I reviewed the procedure, recovery, expectations and potential complications with Matt. All questions were answered. He understands he may need further surgical intervention. Procedure Description: After discussing the risks and benefits of the procedure, the patient signed informed consent.? The operative site was marked and the patient was brought to the operating room and placed on the operating table in supine position.? Care was taken to pad the patient's pressure points.?? The patient was then given sedation by anesthesia.?? 30 mL of 0.5% Marcaine plain injected into the right foot. The operative site was then prepped and draped in the usual sterile fashion.? A time-out was then performed. Right foot was exsanguinated and the ankle tourniquet was inflated to 250 mm Hg. Incision was started at the metatarsophalangeal joint on the medial aspect. Incision diverge going both dorsal and plantar to incorporate the large open wound. Incisions then converged laterally. Incisions were taken directly to bone. Small pocket of purulence was encountered on the lateral dorsal aspect it was cultured and evacuated. This did not extend along the extensor tendon or flexor tendon. The great toe was disarticulated at the metatarsophalangeal joint and removed in total. All necrotic tissue was excised with a scalpel and rongeur. No further areas of purulence noted. Thoroughly irrigated with normal sterile saline. The tourniquet was released and all bleeding vessels cauterized. The skin flaps remodeled and primarily closed with 3-0 nylon. Great toe sent to pathology. The lateral wound over the plantar lateral 5th metatarsal head was excised and the abscess drained. The incision was extended proximal and dorsal until healthy tissue encountered. Infection did not track along the extensor tendons or flexor tendons. Skin and necrotic subcutaneous tissue were excised with a combination of a scalpel and Versajet debridement Wand. All necrotic tissue was excised back to healthy bleeding margins. Wound following debridement measures 2 cm x 3.5 cm. There is no exposed bone but there is exposed joint capsule of the 5th MPJ. After thorough irrigation wound was packed open with saline moistened gauze. Sterile dressings were then applied. The patient was then woken and transported to the recovery area in stable condition. ? The patient tolerated the procedure well. Continue with IV antibiotics. We will continue to follow as he may need further surgical intervention on the lateral foot. Findings: Necrotic right great toe to path. Deep space wound culture sent for sensitivities. Complications: None apparent Anesthesia: MAC and local Surgeon: Vini Hayden DPM Estimated blood loss (mL): 5 Specimen: Other (Right great toe) Condition: stable Disposition: floor
[2022-07-08] MEDS: CEFAZOLIN 2 GM in 0.9 % SODIUM CHLORIDE Mini-bag 100 ML IVPB (20:49)
[2022-07-08] MEDS: MELATONIN 3 MG TABLET PO (20:50)
[2022-07-08] MEDS: PRAZOSIN HCL 1 MG CAPSULE PO (20:50)
[2022-07-08] MEDS: ROSUVASTATIN CALCIUM 10 MG TABLET 40 MG PO (20:51)
[2022-07-09] MEDS: TRAMADOL HCL 50 MG TABLET PO ×3 (01:37→23:52)
[2022-07-09] MEDS: ACETAMINOPHEN 325 MG TABLET PO (01:38)
[2022-07-09] MEDS: CEFAZOLIN 2 GM in 0.9 % SODIUM CHLORIDE Mini-bag 100 ML IVPB ×3 (03:38→20:16)
[2022-07-09] MEDS: MORPHINE 4 MG/ML INJ IVP ×2 (03:39→21:14)
[2022-07-09 04:09] VITALS: BP 154/78; PULSE 72; RESP 18; TEMP 37; O2SAT 95
--- NOTE | 2022-07-09 05:44 | PC.NURSE ---
end of shift. ? pt has been been more awake and alert.? pain in legs 2-12/17 ? he got po pain meds and IV pain meds.? he is up using the urinal. he is alert, but at times is disorientated. ? he asked @ 0100 if it was breakfast time. he was sweaty temp was 98.2 and BS was 296. Dressing to right great toe C/D/I ? he is using the urinal./ he had 2 sandwich over night, SL is patent. ? he is alert at times, but at times will make comments that don't fit the conservation.
[2022-07-09] MEDS: OMEPRAZOLE 20 MG CAPSULE DR 40 MG PO (06:20)
[2022-07-09 06:21] LABS: Basophils Percent Auto 0.1 % (0.0-3.0); Hematocrit 43.8 % (37.0-53.0); Hemoglobin* 14.9 gm/dL (13.5-17.5); Immature Granulocytes Pct Auto 0.3 %; Lymphocytes Percent Auto 6.3 % (20-44); Mean Corpuscular HGB Conc 34 gm/dL (32-36); Mean Corpuscular Hemoglobin 28 pg (26-34); Mean Corpuscular Volume 83 fL (80-100); Monocytes Percent Auto 7.2 % (0.0-11.0); Neutrophils Percent Auto 86.1 % (42.0-72.0); Platelet Count* 351 K/uL (140-440); RDW Coefficient of Variation % 12.3 % (11.5-15.5); Red Blood Count 5.26 m/uL (4.30-5.90); White Blood Count* 14.51 K/uL (4.50-11.00)
[2022-07-09 06:24] LABS: Slide Review Reflex No
[2022-07-09 06:30] LABS: Albumin* 3.4 g/dL (3.3-5.0); Chloride* 101 mmol/L (96-114)
[2022-07-09 06:31] LABS: Potassium* 3.8 mmol/L (3.6-5.1); Sodium* 134 mmol/L (135-149)
[2022-07-09 06:33] LABS: Creatinine* 0.5 mg/dL (0.5-1.5); Estimated Glomerular Filt Rate 129 ml/min
[2022-07-09 06:34] LABS: Alanine Aminotransferase* 14 U/L (4-50); Alkaline Phosphatase* 114 U/L (40-150); Aspartate Amino Transferase* 13 U/L (12-35); Bilirubin Total* 0.4 mg/dL (0.1-1.5); Blood Urea Nitrogen* 7 mg/dL (5-24); Calcium* 8.2 mg/dL (8.4-10.6); Carbon Dioxide* 25 mmol/L (20-32); Glucose* 243 mg/dL (60-115); Total Protein* 7.3 g/dL (6.0-8.3)
[2022-07-09 06:53] LABS: C Reactive Protein* 16.2 mg/dL (0.5-1.0)
[2022-07-09 07:46] VITALS: BP 135/76; PULSE 64; RESP 18; TEMP 36.8; O2SAT 95
[2022-07-09] MEDS: ESCITALOPRAM 10 MG TABLET 20 MG PO (08:53)
[2022-07-09 09:53] VITALS: BMI 34.0
[2022-07-09 11:24] VITALS: BP 135/76; PULSE 95; RESP 18; TEMP 36.8; O2SAT 96
[2022-07-09] MEDS: 0.9 % SODIUM CHLORIDE 250 ml IV (11:52)
--- NOTE | 2022-07-09 13:48 | PC.NURSE ---
Pt has been calm and cooperative during shift. Pt has been in bed during shift and does not want to get up in chair. Pt uses urinal independently and has had good intake and output. Pt was up to bathroom once with therapy. Pt has had a good appetite. Pt vital signs are stable. Pt is assist of one with walker. Pt?s dressing is dry and intact. Pt refused SCD placement. Pt educated on importance of SCD?s. Pt has had no pain during shift.
[2022-07-09 15:18] VITALS: BP 119/73; PULSE 78; RESP 18; TEMP 36.7; O2SAT 94
--- NOTE | 2022-07-09 16:04 | P.IMPN_ITS ---
Progress Note: A&P Assessment and plan (1) Osteomyelitis: Problem details: - appreciate input from Podiatry - s/p R great toe amputation 07/08 - transitioned from Rocephin and Vancomycin to Ancef (07/08) based on wound sensitivities (MSSA) collected on admission, OR cultures pending - MRI 07/07: IMPRESSION: 1. Incomplete exam. Completed sequences are compromised by motion artifact. 2. Medial great toe wound with surrounding edema and/or cellulitis. Erosion of the medial-plantar cortex of the 1st proximal phalanx underlying the wound, better seen on recent radiographs. Marrow edema in the 1st proximal phalanx. Findings are suspicious for osteomyelitis although osteomyelitis is difficult to confirm with high specificity due to the incomplete and motion compromised exam. Marrow edema in the 1st distal phalanx without osteomyelitis. 3. Lateral forefoot wound with surrounding edema and/or cellulitis. Marrow edema in the 5th metatarsal head and 5th proximal phalanx without osteomyelitis. 4. No fluid collection. 5. Muscle edema from denervation or myositis. Dictated by Jose Alva MD @ 07/07/2022 1:45:49 PM Status: Acute (2) Diabetes: Problem details: - A1C 14.1 02/28 - continue Accu-Cheks and SSI - outpatient compliance is poor 2/2 comorbidities, in addition to housing and food insecurity Status: Acute (3) Visual hallucinations: Problem details: - diagnosed as paranoid schizophrenic per chart review - Trey Kim is Psychiatrist - receives Abilify Q28 days, last administration 06/18/22 (next injection due 07/16) Status: Acute (4) Hypokalemia: Problem details: - replace and follow Status: Acute Plan - per above - SCDs for ppx - appreciate input from regarding discharge planning Subjective Date Seen: 07/09/22 Interval history: Matt had a right great toe amputation with Dr. Hayden of Podiatry last night, in addition to an I&D of the abscess noted on his right lateral foot. He has no concerns for hospitalist team this morning. Given wound culture results, his antibiotics were transitioned from vancomycin and ceftriaxone to Ancef. Exam Narrative: Exam Narrative: GEN: Alert and laying comfortably in bed. Nontoxic in appearance CV: Pulse palpates as regular rate and rhythm R: Breathing comfortably without tachypnea or retractions Ext: No concerning edema of ankles, decreased pulses at bilateral dorsalis pedis Skin: Right foot wound is wrapped and not formally examined by hospitalist team today as patient will be seen by Podiatry Neuro: No focal deficits or resting tremor, gait not observed Psych: Appropriate for comorbidities Const: Vital Signs, click to edit/add: Vital Signs - 24 hr 07/08/22 18:10 07/08/22 18:25 07/08/22 18:40 Temperature 97.9 F Pulse Rate [Left A pical] Pulse Rate [Left D orsalis Pedis] Pulse Rate [Pulse Oximeter] 71 69 68 Respiratory Rate 16 18 16 Blood Pressure [Ri ght Arm] 120/77 134/82 134/81 Pulse Oximetry 94 94 95 Oxygen Delivery Me thod Room Air Room Air Room Air 07/08/22 18:55 07/08/22 20:10 07/08/22 23:00 Temperature 97.7 F 98.0 F 98.0 F Pulse Rate [Left A pical] 64 64 Pulse Rate [Left D orsalis Pedis] 66 Pulse Rate [Pulse Oximeter] 67 67 Respiratory Rate 16 18 18 Blood Pressure [Ri ght Arm] 136/88 160/84 H 150/68 H Pulse Oximetry 96 93 93 Oxygen Delivery Me thod Room Air Room Air Room Air 07/08/22 23:00 07/09/22 04:09 07/09/22 07:46 Temperature 98.6 F 98.2 F Pulse Rate [Left A pical] 63 72 Pulse Rate [Left D orsalis Pedis] 72 Pulse Rate [Pulse Oximeter] 64 Respiratory Rate 18 18 18 Blood Pressure [Ri ght Arm] 154/78 H 135/76 Pulse Oximetry 95 95 Oxygen Delivery Me thod Room Air Room Air 07/09/22 11:24 07/09/22 15:18 Temperature 98.2 F 98.0 F Pulse Rate [Left A pical] Pulse Rate [Left D orsalis Pedis] Pulse Rate [Pulse Oximeter] 95 78 Respiratory Rate 18 18 Blood Pressure [Ri ght Arm] 135/76 119/73 Pulse Oximetry 96 94 Oxygen Delivery Me thod Room Air Room Air Labs Labs: Laboratory Results - last 24 hr 07/09/22 07/09/22 05:54 05:54 WBC 14.51 H RBC 5.26 Hgb 14.9 Hct 43.8 MCV 83 MCH 28 MCHC 34 RDW Coeff of David 12.3 Plt Count 351 Neut % (Auto) 86.1 H Lymph % (Auto) 6.3 L [place] % (Auto) 7.2 Eos % (Auto) 0.0 Baso % (Auto) 0.1 Neut # (Auto) 12.50 H Lymph # (Auto) 0.90 [place] # (Auto) 1.00 H Eos # (Auto) 0.00 Baso # (Auto) 0.00 Sodium 134 L Potassium 3.8 Chloride 101 Carbon Dioxide 25 BUN 7 Creatinine 0.5 Estimated Creat Clear 200.80 Estimated GFR 129 Glucose 243 H Calcium 8.2 L Total Bilirubin 0.4 AST 13 ALT 14 Alkaline Phosphatase 114 C-Reactive Protein 16.2 H Total Protein 7.3 Albumin 3.4
--- NOTE | 2022-07-09 17:45 | W.PM.PODPN ---
Podiatry-PN: Subj Subjective Time Seen by Provider: 17:40 Date Seen: 07/09/22 Interval history: Patient seen bedside postop day 1. Denies any concerns. No increases in his pain. Given wound culture results, his antibiotics were transitioned from vancomycin and ceftriaxone to Ancef. Progress Note: A&P Assessment and plan (1) Osteomyelitis: Problem details: Status: Acute Plan status post right great toe amputation and lateral foot I and D postop day 1. Patient is doing well. Amputation site looks good. Continue IV antibiotics. Lateral foot is improving. He may need further surgical intervention on the lateral foot in the upcoming days. I would anticipate possible need for partial 5th ray amputation. Will follow-up closely tomorrow. Saline moistened gauze with a dry dressing applied. Exam Narrative: Exam Narrative: right foot with amputated great toe. Incision is well coapted. No significant change. Mild erythema around the incision on the dorsal flap but overall healthy. Lateral wound with no increased necrosis. Exposed 5th metatarsal joint capsule. No purulence. Const: Vital Signs, click to edit/add: Vital Signs - 24 hr 07/08/22 18:10 07/08/22 18:25 07/08/22 18:40 Temperature 97.9 F Pulse Rate [Left A pical] Pulse Rate [Left D orsalis Pedis] Pulse Rate [Pulse Oximeter] 71 69 68 Respiratory Rate 16 18 16 Blood Pressure [Ri t Arm] 120/77 134/82 134/81 Pulse Oximetry 94 94 95 Oxygen Delivery Me thod Room Air Room Air Room Air 07/08/22 18:55 07/08/22 20:10 07/08/22 23:00 Temperature 97.7 F 98.0 F 98.0 F Pulse Rate [Left A pical] 64 64 Pulse Rate [Left D orsalis Pedis] 66 Pulse Rate [Pulse Oximeter] 67 67 Respiratory Rate 16 18 18 Blood Pressure [Ri t Arm] 136/88 160/84 H 150/68 H Pulse Oximetry 96 93 93 Oxygen Delivery Me thod Room Air Room Air Room Air 07/08/22 23:00 07/09/22 04:09 07/09/22 07:46 Temperature 98.6 F 98.2 F Pulse Rate [Left A pical] 63 72 Pulse Rate [Left D orsalis Pedis] 72 Pulse Rate [Pulse Oximeter] 64 Respiratory Rate 18 18 18 Blood Pressure [Ri ght Arm] 154/78 H 135/76 Pulse Oximetry 95 95 Oxygen Delivery Me thod Room Air Room Air 07/09/22 11:24 07/09/22 15:18 Temperature 98.2 F 98.0 F Pulse Rate [Left A pical] Pulse Rate [Left D orsalis Pedis] Pulse Rate [Pulse Oximeter] 95 78 Respiratory Rate 18 18 Blood Pressure [Ri ght Arm] 135/76 119/73 Pulse Oximetry 96 94 Oxygen Delivery Me thod Room Air Room Air Podiatry-PN: Obj Labs Labs: Laboratory Results - last 24 hr 07/09/22 07/09/22 05:54 05:54 WBC 14.51 H RBC 5.26 Hgb 14.9 Hct 43.8 MCV 83 MCH 28 MCHC 34 RDW Coeff of David 12.3 Plt Count 351 Neut % (Auto) 86.1 H Lymph % (Auto) 6.3 L [place] % (Auto) 7.2 Eos % (Auto) 0.0 Baso % (Auto) 0.1 Neut # (Auto) 12.50 H Lymph # (Auto) 0.90 [place] # (Auto) 1.00 H Eos # (Auto) 0.00 Baso # (Auto) 0.00 Sodium 134 L Potassium 3.8 Chloride 101 Carbon Dioxide 25 BUN 7 Creatinine 0.5 Estimated Creat Clear 200.80 Estimated GFR 129 Glucose 243 H Calcium 8.2 L Total Bilirubin 0.4 AST 13 ALT 14 Alkaline Phosphatase 114 C-Reactive Protein 16.2 H Total Protein 7.3 Albumin 3.4
[2022-07-09 19:00] VITALS: BP 134/79; PULSE 62; RESP 18; TEMP 36.7; O2SAT 96
[2022-07-09] MEDS: ROSUVASTATIN CALCIUM 10 MG TABLET 40 MG PO (20:16)
[2022-07-09] MEDS: MELATONIN 3 MG TABLET PO (20:17)
[2022-07-09] MEDS: PRAZOSIN HCL 1 MG CAPSULE PO (20:17)
[2022-07-09] MEDS: SODIUM CHLORIDE 0.9 % (FLUSH) 10 ML SYRINGE IVF (21:14)
[2022-07-09 23:00] VITALS: BP 149/79; PULSE 84; RESP 18; TEMP 36.9; O2SAT 96
[2022-07-10 03:00] VITALS: BP 113/79; PULSE 78; RESP 16; TEMP 36.6; O2SAT 94
[2022-07-10] MEDS: CEFAZOLIN 2 GM in 0.9 % SODIUM CHLORIDE Mini-bag 100 ML IVPB ×3 (03:47→20:15)
[2022-07-10] MEDS: SODIUM CHLORIDE 0.9 % (FLUSH) 10 ML SYRINGE IVF (03:47)
--- NOTE | 2022-07-10 05:04 | PC.NURSE ---
SHIFT NOTE 19-: Pt is pleasant and cooperative. PRN Tramadol given every 6 hours with pt reporting pain relief. Premedicated pt with Morphine prior to dressing change, pt tolerated dressing change well, encouraged pt to elevate foot on pillows. Denies SOB, CP, and N/V. Up independently at the bedside to use urinal.
[2022-07-10] MEDS: TRAMADOL HCL 50 MG TABLET PO (05:23)
[2022-07-10] MEDS: OMEPRAZOLE 20 MG CAPSULE DR 40 MG PO (05:23)
[2022-07-10 07:53] LABS: Basophils Percent Auto 0.2 % (0.0-3.0); Eosinophils Percent Auto 0.7 % (0.0-7.0); Hemoglobin* 14.4 gm/dL (13.5-17.5); Immature Granulocytes Pct Auto 0.4 %; Lymphocytes Percent Auto 21.6 % (20-44); Mean Corpuscular HGB Conc 34 gm/dL (32-36); Mean Corpuscular Hemoglobin 28 pg (26-34); Mean Corpuscular Volume 84 fL (80-100); Monocytes Percent Auto 10.2 % (0.0-11.0); Neutrophils Percent Auto 66.9 % (42.0-72.0); Platelet Count* 372 K/uL (140-440); RDW Coefficient of Variation % 12.4 % (11.5-15.5); Red Blood Count 5.12 m/uL (4.30-5.90); White Blood Count* 12.21 K/uL (4.50-11.00)
[2022-07-10 07:57] LABS: Slide Review Reflex No
[2022-07-10 08:05] LABS: Chloride* 103 mmol/L (96-114); Potassium* 3.6 mmol/L (3.6-5.1); Sodium* 136 mmol/L (135-149)
[2022-07-10 08:08] LABS: Creatinine* 0.4 mg/dL (0.5-1.5); Estimated Glomerular Filt Rate 138 ml/min
[2022-07-10 08:09] VITALS: BP 113/70; PULSE 58; RESP 18; TEMP 36.7; O2SAT 93
[2022-07-10 08:09] LABS: Blood Urea Nitrogen* 12 mg/dL (5-24); Calcium* 8.1 mg/dL (8.4-10.6); Carbon Dioxide* 33 mmol/L (20-32); Glucose* 136 mg/dL (60-115)
[2022-07-10] MEDS: ESCITALOPRAM 10 MG TABLET 20 MG PO (08:11)
[2022-07-10 08:12] LABS: C Reactive Protein* 8.6 mg/dL (0.5-1.0)
--- NOTE | 2022-07-10 11:04 | PC.SOCIAL ---
Addendum entered by Alis Swan LCSW 07/10/22 12:43: quality worker faxed info sheet to [facility] to review. SW to follow up as needed Original Note: Discharge plan: Met with patient, Matt. Matt has not been in contact with his cousin, Sheryl. Matt agreed to have professor of social work contact facilities that he might be able to go to and receive care. Social work will follow up as needed.
--- NOTE | 2022-07-10 11:17 | P.PODPN_ITS ---
Podiatry-PN: Subj Subjective Time Seen by Provider: 11:00 Date Seen: 07/10/22 Interval history: Patient seen bedside postop day 2. Denies any concerns. No increases in his pain. On Ancef. Progress Note: A&P Assessment and plan (1) Osteomyelitis: Problem details: Status: Acute Plan 1. S/p right great toe amputation postop day 2 2. S/p right foot incision and drainage with wide debridement postop day 2 Plan: Amputation site is improving. Currently appears stable. White count remains slightly elevated and CRP is improving. Lateral wound improved from last night. With the worsening necrosis of the joint capsule around the 5th MPJ I recommend partial 5th ray resection with primary closure. I do not anticipate Matt doing very well with a large open wound with exposed bone. Plan for surgery Wednesday to allow further infection laterally to resolve. Exam Narrative: Exam Narrative: Right foot with great toe amputation incision well coapted. Decreased edema and erythema medially. Small area of necrosis to the lateral portion of the incision. Lateral ulceration measures 2 cm x 3.5 cm. There is exposed 5th metatarsal phalangeal joint capsule which has started to dry out and necrosis. Plantar fat necrosis around the edges of the debridement has stabilized. No purulence. Deep space wound culture: MSSA resistant to Bactrim Const: Vital Signs, click to edit/add: Vital Signs - 24 hr 07/09/22 11:24 07/09/22 15:18 07/09/22 19:00 Temperature 98.2 F 98.0 F 98.0 F Pulse Rate [Left A pical] 62 Pulse Rate [Pulse Oximeter] 95 78 Respiratory Rate 18 18 18 Blood Pressure [Ri ght Arm] 135/76 119/73 134/79 Pulse Oximetry 96 94 96 Oxygen Delivery Me thod Room Air Room Air Room Air 07/09/22 23:00 07/09/22 23:00 07/10/22 03:00 Temperature 98.4 F 98 F Pulse Rate [Left A pical] 84 78 Pulse Rate [Pulse Oximeter] Respiratory Rate 18 18 16 Blood Pressure [Ri ght Arm] 149/79 H 113/79 Pulse Oximetry 96 94 Oxygen Delivery Me thod Room Air Room Air 07/10/22 08:09 Temperature 98.0 F Pulse Rate [Left A pical] Pulse Rate [Pulse Oximeter] 58 L Respiratory Rate 18 Blood Pressure [Ri ght Arm] 113/70 Pulse Oximetry 93 Oxygen Delivery Me thod Room Air Documenting provider has reviewed patient's vital signs: yes Podiatry-PN: Obj Labs Labs: Laboratory Results - last 24 hr 07/10/22 07/10/22 07/10/22 07:08 07:08 07:08 WBC 12.21 H RBC 5.12 Hgb 14.4 Hct 43.0 MCV 84 MCH 28 MCHC 34 RDW Coeff of David 12.4 Plt Count 372 Neut % (Auto) 66.9 Lymph % (Auto) 21.6 [place] % (Auto) 10.2 Eos % (Auto) 0.7 Baso % (Auto) 0.2 Neut # (Auto) 8.20 H Lymph # (Auto) 2.60 [place] # (Auto) 1.20 H Eos # (Auto) 0.10 Baso # (Auto) 0.00 Sodium 136 Potassium 3.6 Chloride 103 Carbon Dioxide 33 H BUN 12 Creatinine 0.4 L Estimated Creat Clear 251.00 Estimated GFR 138 Glucose 136 H Calcium 8.1 L Ionized Calcium [place] 1.10 L C-Reactive Protein 8.6 H
[2022-07-10] MEDS: 0.9 % SODIUM CHLORIDE 250 ml IV (12:14)
--- NOTE | 2022-07-10 12:44 | PM.IMPN1 ---
Progress Note: A&P Assessment and plan (1) Osteomyelitis: Problem details: - s/p amputation R great toe on 07/[address] Hayden of Podiatry - will likely need further surgical intervention on Wednesday, 07/13 - on Ancef (07/08) for MSSA culture result, previously on vancomycin and Rocephin Status: Acute (2) Visual hallucinations: Problem details: - diagnosed as paranoid schizophrenic per chart review - Trey Kim is Psychiatrist - receives Abilify Q28 days, last administration 06/18/22 (next injection due 07/16) Status: Acute (3) Hypokalemia: Problem details: - replace and follow Status: Acute (4) Diabetes: Problem details: - A1C 14.1 02/28 - continue Accu-Cheks and SSI - outpatient compliance is poor 2/2 comorbidities, in addition to housing and food insecurity Status: Acute (5) Hypocalcemia: Problem details: - replace and follow Status: Acute Plan - per above - continue IV antibiotics and dressing changes - Lovenox for prophylaxis, will discontinue this 07/12, anticipating surgery 07/13 - appreciate input from social work regarding dispo planning. Patient is currently housing insecure with a history of poor outpatient follow-up, will require assistance upon discharge Subjective Date Seen: 07/10/22 Interval history: Matt is POD 2 from right great toe amputation with Dr. Hayden of podiatry. He has intermittent pain that is resolved with p.r.n. pain medications. He has no concerns for hospitalist team. Exam Narrative: Exam Narrative: GEN: Alert and laying comfortably in bed HEENT: EOMIs bilaterally, no scleral icterus CV: RRR, No concerning murmurs, rubs, or gallops R: LCTA bilaterally without concerning wheezing, air movement is adequate Ext: no concerning edema noted, right foot is wrapped and not formally examined as Dr. Hayden saw patient this morning and performed a dressing change Skin: No concerning skin lesions or rashes on exposed skin Neuro: Nonfocal Psych: Appropriate Const: Vital Signs, click to edit/add: Vital Signs - 24 hr 07/09/22 15:18 07/09/22 19:00 07/09/22 23:00 Temperature 98.0 F 98.0 F Pulse Rate [Left A pical] 62 Pulse Rate [Pulse Oximeter] 78 Respiratory Rate 18 18 18 Blood Pressure [Ri ght Arm] 119/73 134/79 Pulse Oximetry 94 96 Oxygen Delivery Me thod Room Air Room Air 07/09/22 23:00 07/10/22 03:00 07/10/22 08:09 Temperature 98.4 F 98 F 98.0 F Pulse Rate [Left A pical] 84 78 Pulse Rate [Pulse Oximeter] 58 L Respiratory Rate 18 16 18 Blood Pressure [Ri ght Arm] 149/79 H 113/79 113/70 Pulse Oximetry 96 94 93 Oxygen Delivery Me thod Room Air Room Air Room Air Labs Labs: Laboratory Results - last 24 hr 07/10/22 07/10/22 07/10/22 07:08 07:08 07:08 WBC 12.21 H RBC 5.12 Hgb 14.4 Hct 43.0 MCV 84 MCH 28 MCHC 34 RDW Coeff of David 12.4 Plt Count 372 Neut % (Auto) 66.9 Lymph % (Auto) 21.6 [place] % (Auto) 10.2 Eos % (Auto) 0.7 Baso % (Auto) 0.2 Neut # (Auto) 8.20 H Lymph # (Auto) 2.60 [place] # (Auto) 1.20 H Eos # (Auto) 0.10 Baso # (Auto) 0.00 Sodium 136 Potassium 3.6 Chloride 103 Carbon Dioxide 33 H BUN 12 Creatinine 0.4 L Estimated Creat Clear 251.00 Estimated GFR 138 Glucose 136 H Calcium 8.1 L Ionized Calcium Magda 1.10 L C-Reactive Protein 8.6 H
[2022-07-10 13:14] VITALS: BP 124/78; PULSE 87; RESP 18; TEMP 36.6; O2SAT 94
[2022-07-10 15:00] VITALS: BP 125/73; PULSE 62; RESP 18; TEMP 36.9; O2SAT 93
[2022-07-10 19:00] VITALS: BP 136/87; PULSE 56; PULSE 58; RESP 18; TEMP 36.9; O2SAT 94
[2022-07-10] MEDS: MORPHINE 4 MG/ML INJ IVP (19:56)
[2022-07-10] MEDS: PRAZOSIN HCL 1 MG CAPSULE PO (22:19)
[2022-07-10] MEDS: ROSUVASTATIN CALCIUM 10 MG TABLET 40 MG PO (22:20)
[2022-07-10] MEDS: ENOXAPARIN 40 MG/0.4 ML INJ SUBCUT (22:21)
[2022-07-10] MEDS: MELATONIN 3 MG TABLET PO (22:21)
[2022-07-10 23:00] VITALS: BP 153/84; PULSE 65; RESP 16; TEMP 36.8; O2SAT 95
[2022-07-11] VITALS (7 sets, daily range): BP systolic 126–159; BP diastolic 77–92; PULSE 59–72; RESP 16–18; TEMP 36.6–37.1; O2SAT 93–96
[2022-07-11] MEDS: CEFAZOLIN 2 GM in 0.9 % SODIUM CHLORIDE Mini-bag 100 ML IVPB ×3 (03:57→19:56)
[2022-07-11] MEDS: TRAMADOL HCL 50 MG TABLET PO ×3 (04:10→16:58)
[2022-07-11 06:18] LABS: Ionized Calcium* 1.07 mmol/L (1.11-1.30)
[2022-07-11 06:25] LABS: Basophils Absolute Auto 0.02 K/uL (0.00-0.30); Basophils Percent Auto 0.2 % (0.0-3.0); Eosinophils Absolute Auto 0.12 K/uL (0.00-0.50); Eosinophils Percent Auto 1.2 % (0.0-7.0); Hematocrit 43.6 % (37.0-53.0); Hemoglobin* 14.8 gm/dL (13.5-17.5); Immature Granulocytes Abs Auto 0.14 K/uL (0.00-0.30); Immature Granulocytes Pct Auto 1.4 %; Lymphocytes Absolute Auto 2.25 K/uL (0.90-2.90); Lymphocytes Percent Auto 22.5 % (20-44); Mean Corpuscular HGB Conc 34 gm/dL (32-36); Mean Corpuscular Hemoglobin 28 pg (26-34); Mean Corpuscular Volume 84 fL (80-100); Monocytes Percent Auto 9.9 % (0.0-11.0); Neutrophils Percent Auto 64.8 % (42.0-72.0); Platelet Count* 377 K/uL (140-440); RDW Coefficient of Variation % 12.2 % (11.5-15.5); Red Blood Count 5.21 m/uL (4.30-5.90); White Blood Count* 10.02 K/uL (4.50-11.00)
--- NOTE | 2022-07-11 06:30 | PC.NURSE ---
Pt alert and oriented x3. Pt reports 10 out of 10 pain, pain managed with PRN medications. Pt right foot dressing was changed today 07/11/22 with no drainage coming from the wound?and the dressing is CDI. Pt is up IND in?room, and uses urinal at bedside. Pt is tolerating a regular diet. Pt denies chest pain, SOB, and N/V. ???
[2022-07-11 06:32] LABS: Slide Review Reflex No
[2022-07-11] MEDS: OMEPRAZOLE 20 MG CAPSULE DR 40 MG PO (06:34)
[2022-07-11] MEDS: DOCUSATE SODIUM 100 MG CAPSULE PO (06:34)
[2022-07-11 06:43] LABS: Chloride* 99 mmol/L (96-114); Potassium* 3.7 mmol/L (3.6-5.1); Sodium* 134 mmol/L (135-149)
[2022-07-11 06:46] LABS: Blood Urea Nitrogen* 10 mg/dL (5-24); Carbon Dioxide* 33 mmol/L (20-32); Creatinine* 0.4 mg/dL (0.5-1.5); Estimated Glomerular Filt Rate 138 ml/min
[2022-07-11 06:47] LABS: Calcium* 7.9 mg/dL (8.4-10.6); Glucose* 221 mg/dL (60-115)
[2022-07-11 06:49] LABS: C Reactive Protein* 6.6 mg/dL (0.5-1.0)
[2022-07-11] MEDS: ESCITALOPRAM 10 MG TABLET 20 MG PO (09:22)
[2022-07-11] MEDS: CALCIUM CARBONATE 500 MG TABLET PO ×2 (09:23→20:45)
[2022-07-11] MEDS: MORPHINE 4 MG/ML INJ IVP ×2 (09:31→19:33)
[2022-07-11] MEDS: 0.9 % SODIUM CHLORIDE 250 ml IV (10:33)
--- NOTE | 2022-07-11 11:50 | PC.NURSE ---
Pt received 4 mg of IV morphine as premedication for dressing change to right foot. IV Calcium gluconate infused w/o difficulty. BG 192 and pt received 1 unit of Novolog insulin from . WTD dressing to right lateral foot covered with folded 2 by 2 and square mepilex. Sutures to right great toe amputation site intact, no dehiscence noted, one pea sized drop of blood on dressing. Reinforced site with 4 by 4's and extra padding per pt request during Dr. Painter's am rounds. Wrapped site with kerlix and gabriella wraps. IV Ancef infusing with new tubing. Tramadol 100 mg PO for pain 5 out of 10. Care of this patient transferred to [facility] at 11:15 am.
--- NOTE | 2022-07-11 15:26 | PM.IMPN1 ---
Progress Note: A&P Assessment and plan (1) Osteomyelitis: Problem details: - s/p amputation R great toe on 07/[address] Hayden of Podiatry - will likely need further surgical intervention on Wednesday, 07/13. I have put in an order for NPO after midnight of Wednesday into Wednesday. - continue Ancef (started 07/08) for MSSA culture result, previously on vancomycin and Rocephin Status: Acute (2) Visual hallucinations: Problem details: - diagnosed as paranoid schizophrenic per chart review - Trey Kim is Psychiatrist - receives Abilify Q28 days, last administration 06/18/22 (next injection due 07/16) Status: Acute (3) Hypokalemia: Problem details: Resolved. Follow. Status: Acute (4) Diabetes: Problem details: - A1C 14.1 02/28 - continue Accu-Cheks and SSI - outpatient compliance is poor 2/2 comorbidities, in addition to housing and food insecurity Status: Inactive (5) Hypocalcemia: Problem details: - continue to replace and follow. If remains low, check magnesium. Status: Acute Plan - Lovenox for prophylaxis, will discontinue this 07/12, anticipating surgery 07/13 - appreciate input from social work regarding dispo planning. Patient is currently housing insecure with a history of poor outpatient follow-up, will require assistance upon discharge - I have added senna S for constipation. Subjective Time Seen by Provider: 09:30 Date Seen: 07/11/22 Interval history: Matt is mostly doing well. He notes some pain in his right foot, especially when trying to ambulate. He noted that the dressing that is currently on there is not as well padded as was put on after the OR, which makes it difficult for him to ambulate. He also has not had a bowel movement for about 2 days, but does not want too much for bowel medication because he is afraid he will have to get to the bathroom very quickly and cannot do so in his current state. Exam Narrative: Exam Narrative: General: No acute distress. Awake, alert, oriented x3. No pallor. No jaundice. Oropharynx: Clear. Mucous membranes moist. Cardiovascular: Regular rate and rhythm. No murmurs, gallops, or rubs. Respiratory: Clear to auscultation bilaterally. No wheezes or crackles. Abdomen: Bowel sounds present. Soft, nondistended, nontender. Extremities: No pretibial edema. Right foot is bandaged, this is clean, dry and intact. Const: Vital Signs, click to edit/add: Vital Signs - 24 hr 07/10/22 19:00 07/10/22 23:00 07/11/22 04:00 Temperature 98.4 F 98.3 F 98.7 F Pulse Rate [Left A pical] 58 L 64 Pulse Rate [Left D orsalis Pedis] Pulse Rate [Pulse Oximeter] 58 L 65 Pulse Rate [Right Dorsalis Pedis] 56 L Respiratory Rate 18 16 16 Blood Pressure [Ri ght Arm] 136/87 153/84 H 143/77 H Pulse Oximetry 94 95 93 Oxygen Delivery Me thod Room Air Room Air Room Air 07/11/22 08:00 07/11/22 11:40 Temperature 97.8 F 97.9 F Pulse Rate [Left A pical] 61 62 Pulse Rate [Left D orsalis Pedis] 61 Pulse Rate [Pulse Oximeter] 61 Pulse Rate [Right Dorsalis Pedis] 61 Respiratory Rate 16 16 Blood Pressure [Ri ght Arm] 126/80 136/82 Pulse Oximetry 95 93 Oxygen Delivery Me thod Room Air Room Air Documenting provider has reviewed patient's vital signs: yes Labs Labs: Laboratory Results - last 24 hr 07/11/22 07/11/22 07/11/22 05:47 05:47 05:47 WBC 10.02 RBC 5.21 Hgb 14.8 Hct 43.6 MCV 84 MCH 28 MCHC 34 RDW Coeff of David 12.2 Plt Count 377 Neut % (Auto) 64.8 Lymph % (Auto) 22.5 [place] % (Auto) 9.9 Eos % (Auto) 1.2 Baso % (Auto) 0.2 Neut # (Auto) 6.50 Lymph # (Auto) 2.25 [place] # (Auto) 1.00 H Eos # (Auto) 0.12 Baso # (Auto) 0.02 Sodium 134 L Potassium 3.7 Chloride 99 Carbon Dioxide 33 H BUN 10 Creatinine 0.4 L Estimated Creat Clear 251.00 Estimated GFR 138 Glucose 221 H Calcium 7.9 L Ionized Calcium Magda 1.07 L C-Reactive Protein 6.6 H
[2022-07-11] MEDS: ACETAMINOPHEN 325 MG TABLET PO (15:29)
--- NOTE | 2022-07-11 19:30 | PC.NURSE ---
Pt is alert and oriented this shift, vitals stable. C/o 4/10 pain to L toe/foot, PRN Tylenol and Tramadol admin w/ good effect. Voiding without issue into urinal. IV dressing replaced today. Tolerating meals, passing flatus, hoping for BM as pt states it's been a few days, scheduled stool softener starting this evening. Pt ind moves in bed. SSI admin per BS. Pt has call light within reach and uses appropriately.
[2022-07-11] MEDS: ROSUVASTATIN CALCIUM 10 MG TABLET 40 MG PO (20:45)
[2022-07-11] MEDS: SENNOSIDES/DOCUSATE TABLET 1 TAB PO (20:45)
[2022-07-11] MEDS: ENOXAPARIN 40 MG/0.4 ML INJ SUBCUT (20:45)
[2022-07-11] MEDS: MELATONIN 3 MG TABLET PO (20:45)
[2022-07-11] MEDS: PRAZOSIN HCL 1 MG CAPSULE PO (20:45)
--- NOTE | 2022-07-11 22:30 | PC.NURSE ---
Shift [id number]- Patient states he is mostly pain free- he is premedicated prior to dressing change and tolerates well. IV occluded- new IV initiated and old IV removed with catheter intact.
[2022-07-12] VITALS (8 sets, daily range): BP systolic 136–164; BP diastolic 72–95; PULSE 55–68; RESP 16–18; TEMP 36.6–37; O2SAT 92–96
[2022-07-12] MEDS: MORPHINE 4 MG/ML INJ IVP ×2 (03:10→19:59)
[2022-07-12] MEDS: CEFAZOLIN 2 GM in 0.9 % SODIUM CHLORIDE Mini-bag 100 ML IVPB ×3 (03:43→19:58)
--- NOTE | 2022-07-12 04:51 | PC.NURSE ---
Shift note: Pt is doing well. Pain level was rated at 8 and PRN Morphine given. Vitally stable. Dressing appears clean and dry. Pt appears to forget easily. Education to maintain NPO starting on 07/13/22 at 0000 given but will need re-enforcement. Vitally stable.
[2022-07-12] MEDS: OMEPRAZOLE 20 MG CAPSULE DR 40 MG PO (06:37)
[2022-07-12 06:59] LABS: Ionized Calcium* 1.12 mmol/L (1.11-1.30)
[2022-07-12 07:27] LABS: Chloride* 99 mmol/L (96-114); Potassium* 4.3 mmol/L (3.6-5.1); Sodium* 136 mmol/L (135-149)
[2022-07-12 07:30] LABS: Blood Urea Nitrogen* 8 mg/dL (5-24); Carbon Dioxide* 36 mmol/L (20-32); Creatinine* 0.6 mg/dL (0.5-1.5); Est. Creatinine Clearance* 167.33; Estimated Glomerular Filt Rate 122 ml/min
[2022-07-12 07:31] LABS: Calcium* 8.5 mg/dL (8.4-10.6); Glucose* 220 mg/dL (60-115)
[2022-07-12] MEDS: ACETAMINOPHEN 325 MG TABLET PO ×2 (08:50→15:39)
[2022-07-12] MEDS: SODIUM CHLORIDE 0.9 % (FLUSH) 10 ML SYRINGE IVF ×2 (08:50→19:59)
[2022-07-12] MEDS: ESCITALOPRAM 10 MG TABLET 20 MG PO (08:51)
[2022-07-12] MEDS: CALCIUM CARBONATE 500 MG TABLET PO ×2 (08:51→21:07)
[2022-07-12] MEDS: TRAMADOL HCL 50 MG TABLET PO ×2 (08:51→15:39)
--- NOTE | 2022-07-12 09:42 | W.PM.PODPN ---
Podiatry-PN: Subj Subjective Time Seen by Provider: 09:30 Date Seen: 07/12/22 Interval history: Matt is seen bedside this a.m. he is postop day 4. Matt is mostly doing well. He notes some pain in his right foot, especially when trying to ambulate. He is aware of surgical plan for return to the operating room tomorrow. He has no questions today. Progress Note: A&P Assessment and plan (1) Osteomyelitis: Problem details: - s/p amputation R great toe on 07/08 - will likely need further surgical intervention on Wednesday, 07/13. - continue Ancef (started 07/08) for MSSA culture result, previously on vancomycin and Rocephin Status: Acute Plan 1. S/p right great toe amputation postop day 4 2. S/p right foot I and D postop day 4 Plan: Sterile dressing provided with a wet-to-dry dressing placed in the lateral wound. Plan for is to return to OR tomorrow for reason for for a partial 5th ray resection and primary closure. I reviewed the procedure at length with Matt and his understanding of the plan. All questions answered. NPO after midnight. Hold evening and tomorrow a.m. Lovenox. Exam Narrative: Exam Narrative: Right foot with healing incision at the great toe amputation site. No significant drainage. No erythema and minimal edema. Lateral wound unchanged with continued necrosis of the subcutaneous tissue on the plantar medial aspect. Fifth MPJ capsule is dried out and likely allow some exposed bone. Const: Vital Signs, click to edit/add: Vital Signs - 24 hr 07/11/22 11:40 07/11/22 15:29 07/11/22 15:00 Temperature 97.9 F 98.0 F Pulse Rate [Left A pical] 62 72 Pulse Rate [Pulse Oximeter] 72 Respiratory Rate 16 16 Blood Pressure [Le ft Arm] Blood Pressure [Ri ght Arm] 136/82 Pulse Oximetry 93 Oxygen Delivery Me thod Room Air 07/11/22 15:00 07/11/22 20:21 07/11/22 23:00 Temperature 98.0 F 98.2 F 98.1 F Pulse Rate [Left A pical] 67 Pulse Rate [Pulse Oximeter] 72 59 L Respiratory Rate 16 18 18 Blood Pressure [Le ft Arm] 159/79 H Blood Pressure [Ri ght Arm] 156/92 H 155/78 H Pulse Oximetry 96 95 95 Oxygen Delivery Me thod Room Air Room Air 07/12/22 03:00 07/12/22 08:22 07/12/22 07:30 Temperature 98 F 98.4 F Pulse Rate [Left A pical] 58 L 60 60 Pulse Rate [Pulse Oximeter] 60 60 Respiratory Rate 18 18 18 Blood Pressure [Le ft Arm] Blood Pressure [Ri ght Arm] 136/72 150/75 H Pulse Oximetry 95 93 Oxygen Delivery Me thod Room Air Room Air Documenting provider has reviewed patient's vital signs: yes Podiatry-PN: Obj Labs Labs: Laboratory Results - last 24 hr 07/12/22 07/12/22 06:47 06:47 Sodium 136 Potassium 4.3 Chloride 99 Carbon Dioxide 36 H BUN 8 Creatinine 0.6 Estimated Creat Clear 167.33 Estimated GFR 122 Glucose 220 H Calcium 8.5 Ionized Calcium Magda 1.12
--- NOTE | 2022-07-12 12:09 | PM.IMPN1 ---
Progress Note: A&P Assessment and plan (1) Osteomyelitis: Problem details: - s/p amputation R great toe on 07/08 - continue Ancef (started 07/08) for MSSA culture result, previously on vancomycin and Rocephin - planning for OR tomorrow morning to close surgical wounds. Lovenox stopped. NPO after midnight. Decrease insulin dose for tonight since he will be NPO in am. Status: Acute (2) Visual hallucinations: Problem details: - diagnosed as paranoid schizophrenic per chart review - Trey Kim is Psychiatrist - receives Abilify Q28 days, last administration 06/18/22 (next injection due 07/16) Status: Acute (3) Hypokalemia: Problem details: Resolved Status: Resolved (4) Diabetes: Problem details: - A1C 14.1 02/28 - continue Accu-Cheks and SSI - outpatient compliance is poor 2/2 comorbidities, in addition to housing and food insecurity Status: Chronic (5) Hypocalcemia: Problem details: Resolved Status: Resolved Plan - Lovenox for VTE prophylaxis now on hold for surgery. - appreciate input from social work regarding dispo planning. Patient is currently housing insecure with a history of poor outpatient follow-up, will require assistance upon discharge - Increase Senna S for constipation. Subjective Time Seen by Provider: 10:46 Date Seen: 07/12/22 Interval history: Matt is doing well. He still has not had a BM, but felt like he almost had one this morning. Pain is well controlled. Dr. Hayden was here and changed his dressing this morning. Plan is OR tomorrow. Exam Narrative: Exam Narrative: General: No acute distress. Awake, alert, oriented. No pallor. No jaundice. Oropharynx: Clear. Mucous membranes moist. Cardiovascular: Regular rate and rhythm. No murmurs, gallops, or rubs. Respiratory: Clear to auscultation bilaterally. No wheezes or crackles. Extremities: No pedal edema. Bandages are recently changed, clean, dry, and intact. Const: Vital Signs, click to edit/add: Vital Signs - 24 hr 07/11/22 15:29 07/11/22 15:00 07/11/22 15:00 Temperature 98.0 F 98.0 F Pulse Rate [Left A pical] 72 Pulse Rate [Pulse Oximeter] 72 72 Respiratory Rate 16 16 Blood Pressure [Le ft Arm] 159/79 H Blood Pressure [Ri ght Arm] Pulse Oximetry 96 Oxygen Delivery Me thod Room Air 07/11/22 20:21 07/11/22 23:00 07/12/22 03:00 Temperature 98.2 F 98.1 F 98 F Pulse Rate [Left A pical] 67 58 L Pulse Rate [Pulse Oximeter] 59 L Respiratory Rate 18 18 18 Blood Pressure [Le ft Arm] Blood Pressure [Ri ght Arm] 156/92 H 155/78 H 136/72 Pulse Oximetry 95 95 95 Oxygen Delivery Me thod Room Air Room Air 07/12/22 08:22 07/12/22 07:30 07/12/22 11:00 Temperature 98.4 F 98.6 F Pulse Rate [Left A pical] 60 60 68 Pulse Rate [Pulse Oximeter] 60 60 68 Respiratory Rate 18 18 18 Blood Pressure [Le ft Arm] Blood Pressure [Ri ght Arm] 150/75 H 151/90 H Pulse Oximetry 93 95 Oxygen Delivery Me thod Room Air Room Air Documenting provider has reviewed patient's vital signs: yes Labs Labs: Laboratory Results - last 24 hr 07/12/22 07/12/22 06:47 06:47 Sodium 136 Potassium 4.3 Chloride 99 Carbon Dioxide 36 H BUN 8 Creatinine 0.6 Estimated Creat Clear 167.33 Estimated GFR 122 Glucose 220 H Calcium 8.5 Ionized Calcium Magda 1.12
[2022-07-12] MEDS: SENNOSIDES/DOCUSATE TABLET 1 TAB PO ×2 (13:34→21:07)
[2022-07-12] MEDS: 0.9 % SODIUM CHLORIDE 250 ml IV (17:42)
--- NOTE | 2022-07-12 19:10 | PC.NURSE ---
End of shift. ? pt has been pleasant. right leg pain in legs 4-8/10 , and back pain. he got po pain meds and IV pain meds.? encouraged pt to get up in the chair he did get up one time. he is up at bed side and he is using the urinal.? ? SL is patent. Dr. Crum did the dressing change. he will be npo at midnight and surgery tomorrow.
[2022-07-12] MEDS: MELATONIN 3 MG TABLET PO (21:07)
[2022-07-12] MEDS: ROSUVASTATIN CALCIUM 10 MG TABLET 40 MG PO (21:07)
[2022-07-12] MEDS: PRAZOSIN HCL 1 MG CAPSULE PO (21:07)
--- NOTE | 2022-07-12 23:30 | PC.NURSE ---
End of Shift: Patient pleasant and cooperative. Afebrile. PRN Morphine prior to dressing change. Tolerating regular diet with no nausea. Will be NPO after midnight.
[2022-07-13] VITALS (9 sets, daily range): BP systolic 100–167; BP diastolic 69–95; PULSE 58–67; RESP 14–18; TEMP 36.6–36.8; O2SAT 91–96
[2022-07-13] MEDS: CEFAZOLIN 2 GM in 0.9 % SODIUM CHLORIDE Mini-bag 100 ML IVPB ×2 (04:55→19:56)
[2022-07-13] MEDS: TRAMADOL HCL 50 MG TABLET PO (05:16)
[2022-07-13] MEDS: OMEPRAZOLE 20 MG CAPSULE DR 40 MG PO (06:33)
--- NOTE | 2022-07-13 07:09 | PC.NURSE ---
Pt alert and oriented x3. Pt denies SOB, chest pain, and N/V. Pt reports 8/10 in right leg, pain managed with PRN medications. Pt right foot dressing is CDI. Pt is up IND in room. Pt was NPO since 0000 07/13/22 for 1100 surgery but was tolerating a regular diet up to that point.
[2022-07-13] MEDS: ESCITALOPRAM 10 MG TABLET 20 MG PO (08:22)
[2022-07-13] MEDS: CALCIUM CARBONATE 500 MG TABLET PO ×2 (08:22→20:39)
[2022-07-13] MEDS: SENNOSIDES/DOCUSATE TABLET 2 TAB PO ×2 (08:22→20:39)
[2022-07-13 09:56] LABS: H pylori Ag Stool* Negative (Negative)
--- NOTE | 2022-07-13 09:56 | PC.SOCIAL ---
Discharge planning: Called [facility] and spoke with [phone], with pt's permission, to request a Medical Assistance pending number or proof that the application has been submitted to assist with placement plan. Called [facility] living and left message for sales administrator Alma, requesting call back for an update on availability for this week and to ask if any additional patient information is needed at this time. labor relations worker to follow up as needed.
--- NOTE | 2022-07-13 11:00 | CRLHL7_ITS ---
For Patients: As a result of the Cures Act, medical imaging exams and procedure reports are released immediately into your electronic medical record. You may view this report before your referring provider. If you have questions, please contact your health care provider. Indication: Osteomyelitis Technique: One fluoroscopic image of the right forefoot. Fluoroscopic time 1.2 seconds. IMPRESSION: Resection of the great toe at the level of the 1st MTP joint and resection of the 5th toe and distal 5th metatarsal at the level of the mid 5th metatarsal. Dictated by Grey Patino MD @ 07/13/2022 12:18:23 PM (Electronically Signed)
[2022-07-13] MEDS: BUPIVACAINE 0.5% 30 ML INJECTION (11:03)
--- NOTE | 2022-07-13 11:22 | W.ANESCHARGE ---
Anesthesia Charges Start Date/Time Anesthesia Start Date: 07/08/22 Anesthesia Start Time: 16:45 Stop Date/Time Anesthesia Stop Date: 07/08/22 Anesthesia Stop Time: 18:15 Summary Emergency: PHYSICIAN GENERAL INTERNAL MEDICINE
--- NOTE | 2022-07-13 11:26 | SUR.OPER ---
TIME OUT PERFORMED PRIOR TO INJECTION OF THE LOCAL IN THE RIGHT FOOT AT 11:02.? PATIENT QUESTIONS ANSWERED SATISFACTORILY PREOPERATIVELY.? PATIENT BROUGHT TO OR #1 PER CART.? Patient positioned supine on OR #1 bed.? The perioperative?team supported arms bilaterally on arm boards.? Final approval of positioning by surgeon.?
--- NOTE | 2022-07-13 11:47 | W.ANESCHARGE ---
Anesthesia Charges Start Date/Time Anesthesia Start Date: 07/13/22 Anesthesia Start Time: 10:56 Stop Date/Time Anesthesia Stop Date: 07/13/22 Anesthesia Stop Time: 12:33
--- NOTE | 2022-07-13 12:31 | P.GSOP_ITS ---
Operative Note Date of procedure: 07/13/22 Pre-op diagnosis: 1. Diabetic ulceration possible underlying osteomyelitis right foot Post-op diagnosis: 1. Diabetic ulceration possible underlying osteomyelitis right foot Type of Procedure: 1. Partial 5th ray resection right foot Indications: Diabetic patient with abscess and ulceration right foot now with necrotic 5th MPJ joint capsule and likely underlying osteomyelitis. He is in need of revisional surgery with partial 5th ray resection to eradicate the infection and primarily closed wound. I reviewed the procedure, recovery, expectations and potential complications with the patient. Procedure Description: After discussing the risks and benefits of the procedure, the patient signed informed consent.? The operative site was marked and the patient was brought to the operating room and placed on the operating table in supine position.? Care was taken to pad the patient's pressure points.?? The patient was then given sedation by anesthesia.?? The operative site was then prepped and draped in the usual sterile fashion.? A time-out was then performed. The right foot was exsanguinated and the ankle tourniquet was inflated to 250 mm Hg. Due to the orientation of the wound laterally over the 5th MPJ we had to 1st amputate the 5th toe while leaving as much of the lateral skin bridge intact as possible. I was able to make a fishmouth incision at approximately the midshaft of the proximal phalanx. Incision was taken directly to bone. We disarticulat ed at the proximal interphalangeal joint and the distal portion of the toe removed. Next working from both the distal incision and through the proximal wound was able to free up the proximal phalanx and disarticulated at the metatarsophalangeal joint and removed in total. I extended the dorsal proximal incision to additional cm down to the metatarsal. Soft tissues reflected away from the 5th metatarsal. Sagittal saw was used to create a through and through bone cut at the midshaft of the 5th metatarsal. The distal 5th metatarsal was then removed in total and sent to pathology. There was a fair amount of necrotic fat along the plantar aspect which was debrided with a rongeur until healthy tissue was evident. All skin edges were then freshened along the old incision and excellent bleeding was noted along the edges throughout. We thoroughly irrigated with 2000 mL normal sterile saline using a pulse lavage on low setting. Once all necrotic tissue had been excised and the wound then thoroughly irrigated and then primarily closed the toe amputation site with 3-0 nylon. After freshening the whole incision edges and thoroughly irrigating the tourniquet was released and normal bleeding occurred throughout the wound and freshen the skin edges. No significant active bleeding was noted. The plantar lateral wound was then closed primarily with 3-0 nylon using a combination of re tention sutures and simple sutures. C-arm images obtained showing excellent level of resection. Sterile dressing was then applied. He was transferred from the OR to [facility] with vital signs stable and vascular status intact right foot. He will continue on IV antibiotics at this time and reduce him to heel weight-bearing. Dressing change tomorrow. ? The patient was then woken and transported to [facility] in stable condition. The patient tolerated the procedure well. Findings: Fifth metatarsal head and distal shaft sent to pathology. Complications: None apparent Anesthesia: MAC and local Surgeon: Vini Hayden DPM Estimated blood loss (mL): 10 Specimen: Other Additional Specimen Information: 5th metatarsal head and distal shaft pathology in formalin. Condition: stable Disposition: floor
--- NOTE | 2022-07-13 12:37 | W.ANESCHARGE ---
Anesthesia Charges Start Date/Time Anesthesia Start Date: 07/13/22 Anesthesia Start Time: 10:56 Stop Date/Time Anesthesia Stop Date: 07/13/22 Anesthesia Stop Time: 12:33
--- NOTE | 2022-07-13 13:12 | PM.IMPN1 ---
Progress Note: A&P Assessment and plan (1) Osteomyelitis: Problem details: - s/p amputation R great toe on 07/08 - continue Ancef (started 07/08) for MSSA culture result, previously on vancomycin and Rocephin - 07/13/22 OR closure of surgical wounds. Dr. Hayden stated he would do a dressing change tomorrow and would likely order q3day dressing changes after that. Status: Acute (2) Visual hallucinations: Problem details: - diagnosed as paranoid schizophrenic per chart review - Trey Kim is Psychiatrist - receives Abilify Q28 days, last administration 06/18/22 (next injection due 07/16) Status: Acute (3) Diabetes: Problem details: - A1C 14.1 02/28 - continue Accu-Cheks and SSI - outpatient compliance is poor 2/2 comorbidities, in addition to housing and food insecurity Status: Chronic Plan - restart Lovenox for VTE prophylaxis. - appreciate input from social work regarding dispo planning. Patient is currently housing insecure with a history of poor outpatient follow-up, will require assistance upon discharge - Add prn miralax for constipation. - Still using morpine IV prn in addition to tramadol for pain control. Discontinue these and start prn oxycodone. Subjective Time Seen by Provider: 07:40 Date Seen: 07/13/22 Interval history: Matt endorses a little fear of surgery. He is otherwise well. He has not yet had a BM. Exam Narrative: Exam Narrative: General: No acute distress. Awake, alert, oriented. Cardiovascular: Regular rate and rhythm. No murmurs, gallops, or rubs. Respiratory: Clear to auscultation bilaterally. No wheezes or crackles. Extremities: No pedal edema. Right foot bandages are clean, dry, and intact. Const: Vital Signs, click to edit/add: Vital Signs - 24 hr 07/12/22 15:57 07/12/22 15:30 07/12/22 19:00 Temperature 98.3 F 98.3 F Pulse Rate [Left A pical] 66 66 57 L Pulse Rate [Left D orsalis Pedis] Pulse Rate [Pulse Oximeter] 66 66 Pulse Rate [Right Dorsalis Pedis] Respiratory Rate 18 18 16 Blood Pressure [Ri ght Arm] 164/84 H 156/95 H Pulse Oximetry 96 93 Oxygen Delivery Me thod Room Air Room Air 07/12/22 23:00 07/13/22 03:00 07/13/22 08:00 Temperature 97.9 F 98.2 F 98.1 F Pulse Rate [Left A pical] 55 L 59 L Pulse Rate [Left D orsalis Pedis] 55 L Pulse Rate [Pulse Oximeter] 55 L 60 59 L Pulse Rate [Right Dorsalis Pedis] 55 L Respiratory Rate 16 16 16 Blood Pressure [Ri ght Arm] 154/80 H 147/95 H 118/80 Pulse Oximetry 92 94 91 Oxygen Delivery Me thod Room Air Room Air Room Air 07/13/22 08:00 07/13/22 11:00 07/13/22 12:37 Temperature 98.0 F 97.9 F Pulse Rate [Left A pical] 59 L 64 61 Pulse Rate [Left D orsalis Pedis] Pulse Rate [Pulse Oximeter] 59 L 64 61 Pulse Rate [Right Dorsalis Pedis] Respiratory Rate 16 16 14 Blood Pressure [Ri ght Arm] 112/72 100/69 Pulse Oximetry 93 94 Oxygen Delivery Nj thod Room Air Room Air 07/13/22 13:04 07/13/22 12:45 Temperature Pulse Rate [Left A pical] 67 66 Pulse Rate [Left D orsalis Pedis] Pulse Rate [Pulse Oximeter] Pulse Rate [Right Dorsalis Pedis] Respiratory Rate 16 18 Blood Pressure [Ri ght Arm] 110/70 106/74 Pulse Oximetry 92 92 Oxygen Delivery Me thod Room Air Room Air Documenting provider has reviewed patient's vital signs: yes Labs Labs: Laboratory Results - last 24 hr 07/13/22 08:45 Stool H. pylori Ag Negative
--- NOTE | 2022-07-13 14:43 | PC.NURSE ---
End of shift. ? pt has been pleasant.? right leg pain in legs 4/10 ,and no pain so far after surgery. MD did switch to oxycodone. and back pain. ? encouraged pt to get up in the chair ? he did get up after surgery. .? he is up at bed side and he is using the urinal.?? ? SL is patent. Dr. Brown did surgery on his foot today. he is back to a regular diet. dressing has been C/D/I and foot/leg is elevated.
--- NOTE | 2022-07-13 15:47 | PC.SOCIAL ---
Discharge planning: Information has already been faxed over to [facility] assisted living to be placed on waiting list as there are currently no available beds. Called to confirm receipt and left message requesting call back if additional information is needed. Called [facility] and spoke with in admitting who stated information could be faxed over to see if pt could be accepted for a Medicare stay or a Medical Assistance pending stay. Faxed requested information and awaiting call back with decision on admit. Called pt's Mental health [facility] rn case management, Yohana at [phone] and left message requesting call back to discuss discharge plan. Called Liberty Mckee at [facility] and updated her on discharge planning. The medical team recommendation is that pt be discharged to a [facility] facility to have RN supervision and assistance in recovery from surgery and needed care. After a stay at a longterm under Medicare coverage or as Medical Assistance pending, and having gained more independence, pt could possibly transition to an assisted living facility for snf care under the Medical Assistance waiver. fat purification worker to follow up as needed.
[2022-07-13] MEDS: MELATONIN 3 MG TABLET PO (20:39)
[2022-07-13] MEDS: ENOXAPARIN 40 MG/0.4 ML INJ SUBCUT (20:39)
[2022-07-13] MEDS: PRAZOSIN HCL 1 MG CAPSULE PO (20:39)
[2022-07-13] MEDS: SODIUM CHLORIDE 0.9 % (FLUSH) 10 ML SYRINGE IVF (20:41)
--- NOTE | 2022-07-13 21:41 | PC.NURSE ---
Shift Note: Pt fatigued/sleepy this evening and spent most of his time in the bed. He is able to stand at bedside to use urinal. BG= 228 & 222, insulin given per protocols/order. Dressing and wrap to right foot C,D,&I, no drainage noted, great cap refill, JUSTINE pedal pulse. Right foot elevated above the heart for most of this shift. Rates pain 6/10, PRN Oxy given x1. VS WNL and LS COA.
[2022-07-14] VITALS (7 sets, daily range): BP systolic 102–174; BP diastolic 64–98; PULSE 59–80; RESP 14–18; TEMP 36.5–36.8; O2SAT 91–98
[2022-07-14] MEDS: OXYCODONE 5 MG TABLET PO ×5 (00:03→22:59)
[2022-07-14] MEDS: CEFAZOLIN 2 GM in 0.9 % SODIUM CHLORIDE Mini-bag 100 ML IVPB ×3 (03:49→20:05)
--- NOTE | 2022-07-14 05:28 | PC.NURSE ---
pleasant & cooperative. rates pain 10/10 while dozing on and off, pain medications given. independent. rested throughout the shift.
[2022-07-14] MEDS: OMEPRAZOLE 20 MG CAPSULE DR 40 MG PO (06:13)
[2022-07-14] MEDS: SENNOSIDES/DOCUSATE TABLET 2 TAB PO ×2 (09:29→23:02)
[2022-07-14] MEDS: ESCITALOPRAM 10 MG TABLET 20 MG PO (09:29)
[2022-07-14] MEDS: CALCIUM CARBONATE 500 MG TABLET PO ×3 (09:29→23:02)
[2022-07-14] MEDS: ACETAMINOPHEN 325 MG TABLET PO ×3 (09:30→22:59)
--- NOTE | 2022-07-14 10:06 | PC.SOCIAL ---
Discharge planning: Received call from [facility] stating they can not accept pt for short term care. Received call from Alma, director of [facility], stating they can assess pt for admit from the hospital. Alma requested a [facility] contact for financial information and stated once that is received, she would like to have the RN from [facility] visit pt fot an in-person assessment. Called Yohana Amado, [facility] Mental Health Submarine Advisory Team Watch Officer, who has been assisting with discharge planning and requested either she or a [facility] financial worker call Alma at [facility] to answer financial qustions regarding MA and waiver services. Utilization Review has determined pt has [place] [employer] plan #[id number], eligibility since 08/08/20 and has an [place] ID number in the state system of [id number]. Left message with Yohana at [facility] with this information, as this may speed up the process for financial approval for [facility]. Called [facility] Vulnerable adult worker, Shital Mckee and left message with this update on discharge plan. 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
--- NOTE | 2022-07-14 10:48 | PM.IMPN1 ---
Progress Note: A&P Assessment and plan (1) Osteomyelitis: Problem details: - s/p amputation R great toe on 07/08 - continue Ancef (started 07/08) for MSSA culture result, previously on vancomycin and Rocephin - 07/13/22 OR closure of surgical wounds. Dr. Hayden stated he would do a dressing change today and would likely order q3day dressing changes after that. Status: Acute (2) Visual hallucinations: Problem details: - diagnosed as paranoid schizophrenic per chart review - Trey Kim is Psychiatrist - receives Abilify Q28 days, last administration 06/18/22 (next injection due 07/16); I spoke with pharmacy (07/14/22) about this to get dose scheduled as inpatient in case he is still here on that day. Status: Acute (3) Diabetes: Problem details: - A1C 14.1 02/28 - continue Accu-Cheks and SSI - outpatient compliance is poor 2/2 comorbidities, in addition to housing and food insecurity Status: Chronic Plan - Lovenox for VTE prophylaxis. - appreciate input from social work regarding dispo planning. Patient is currently housing insecure with a history of poor outpatient follow-up, will require assistance upon discharge - Add prn miralax for constipation. - prn oxycodone for pain is working well. Subjective Time Seen by Provider: 08:58 Date Seen: 07/14/22 Interval history: Matt is doing well. He had a bowel movement. He notes that his pain feels better today. Exam Narrative: Exam Narrative: General: No acute distress. Awake, alert, oriented. Cardiovascular: Regular rate and rhythm. No murmurs, gallops, or rubs. Respiratory: Clear to auscultation bilaterally. No wheezes or crackles. Abdomen: Bowel sounds present, soft, nondistended, nontender. Extremities: No pedal edema. Right foot bandages are clean, dry, and intact. Const: Vital Signs, click to edit/add: Vital Signs - 24 hr 07/13/22 11:00 07/13/22 12:37 07/13/22 13:04 Temperature 98.0 F 97.9 F Pulse Rate [Left A pical] 64 61 67 Pulse Rate [Pulse Oximeter] 64 61 Respiratory Rate 16 14 16 Blood Pressure [Le ft Arm] Blood Pressure [Ri ght Arm] 112/72 100/69 110/70 Pulse Oximetry 93 94 92 Oxygen Delivery Me thod Room Air Room Air Room Air 07/13/22 12:45 07/13/22 13:16 07/13/22 15:00 Temperature Pulse Rate [Left A pical] 66 60 62 Pulse Rate [Pulse Oximeter] Respiratory Rate 18 16 16 Blood Pressure [Le ft Arm] Blood Pressure [Ri ght Arm] 106/74 127/86 Pulse Oximetry 92 96 Oxygen Delivery Me thod Room Air Room Air 07/13/22 15:00 07/13/22 19:00 07/14/22 00:04 Temperature 98.2 F 98.2 F Pulse Rate [Left A pical] 62 58 L 61 Pulse Rate [Pulse Oximeter] 62 58 L 61 Respiratory Rate 16 16 16 Blood Pressure [Le ft Arm] Blood Pressure [Ri ght Arm] 137/76 167/78 H Pulse Oximetry 92 93 Oxygen Delivery Me thod Room Air Room Air 07/14/22 00:04 07/14/22 03:56 07/14/22 07:00 Temperature 97.8 F 98 F 98.3 F Pulse Rate [Left A pical] 61 59 L Pulse Rate [Pulse Oximeter] 61 59 L 65 Respiratory Rate 16 16 18 Blood Pressure [Le ft Arm] 171/79 H 118/77 Blood Pressure [Ri ght Arm] 102/64 Pulse Oximetry 94 96 91 Oxygen Delivery Me thod Room Air Room Air Room Air 07/14/22 07:00 Temperature Pulse Rate [Left A pical] Pulse Rate [Pulse Oximeter] 65 Respiratory Rate 18 Blood Pressure [Le ft Arm] Blood Pressure [Ri ght Arm] Pulse Oximetry Oxygen Delivery Me thod Documenting provider has reviewed patient's vital signs: yes
[2022-07-14] MEDS: SODIUM CHLORIDE 0.9 % (FLUSH) 10 ML SYRINGE IVF (11:51)
--- NOTE | 2022-07-14 17:43 | W.PM.PODPN ---
Podiatry-PN: Subj Subjective Date Seen: 07/14/22 Interval history: Matt is doing well. Seen bedside this evening. He states having some increased dorsal foot and ankle pain. Nursing states he has been walking on the foot without the walker. Progress Note: A&P Assessment and plan (1) Osteomyelitis: Problem details: - s/p amputation R great toe on 07/08 - continue Ancef (started 07/08) for MSSA culture result, previously on vancomycin and Rocephin - 07/13/22 OR closure of surgical wounds. Status: Acute Plan 1. Osteomyelitis right foot 2. S/p right great toe amputation postop day number 6 and S/p right 5th ray amputation postop day 1 plan: Dressing changed today and incision is doing well. Betadine-soaked 4x4s applied incisions and then covered with sterile dressing. Extra padding applied to the dorsal foot. Discussed with Matt to try to remain heel weight-bearing with a walker and avoid pressure to the forefoot. He will need a postsurgical shoe and discharge. Dressing changes can be done every 3rd day while in-house. Awaiting path results from the metatarsal resection to determine length of antibiotics. Plan for minimum 2 weeks oral antibiotics. plan for patient to be seen in follow-up next Wednesday at the [facility]. Exam Narrative: Exam Narrative: Right foot exam: Medial and lateral incisions are well coapted. Diminished edema. No active bleeding. Small area of maceration to the lateral portion of the medial incision. lateral incision with no areas of necrosis and the skin bridge appears viable with normal capillary fill time. No areas of bleeding and no areas of drainage. Mild area of erythema the dorsal midfoot and anterior ankle that appeared to be due to tight dressings. Const: Vital Signs, click to edit/add: Vital Signs - 24 hr 07/13/22 19:00 07/14/22 00:04 07/14/22 00:04 Temperature 98.2 F 97.8 F Pulse Rate [Left A pical] 58 L 61 61 Pulse Rate [Pulse Oximeter] 58 L 61 61 Respiratory Rate 16 16 16 Blood Pressure [Le ft Arm] Blood Pressure [Ri ght Arm] 167/78 H 102/64 Pulse Oximetry 93 94 Oxygen Delivery Me thod Room Air Room Air 07/14/22 03:56 07/14/22 07:00 07/14/22 07:00 Temperature 98 F 98.3 F Pulse Rate [Left A pical] 59 L Pulse Rate [Pulse Oximeter] 59 L 65 65 Respiratory Rate 16 18 18 Blood Pressure [Le ft Arm] 171/79 H 118/77 Blood Pressure [Ri ght Arm] Pulse Oximetry 96 91 Oxygen Delivery Me thod Room Air Room Air 07/14/22 11:00 07/14/22 15:00 07/14/22 15:00 Temperature 98.2 F 97.7 F Pulse Rate [Left A pical] Pulse Rate [Pulse Oximeter] 80 67 67 Respiratory Rate 14 14 14 Blood Pressure [Le ft Arm] 146/86 H 174/98 H Blood Pressure [Ri ght Arm] Pulse Oximetry 95 95 Oxygen Delivery Me thod Room Air Room Air Documenting provider has reviewed patient's vital signs: yes
--- NOTE | 2022-07-14 18:39 | PC.NURSE ---
End of Shift: Patient pleasant and cooperative. Patient vitally stable, lungs clear, BS WNL, IV intact. Patient independent with walker. Patient always rates pain 9-10/10, patient takes 5 mg of oxy upon request, tylenol given x2 today. Patient tolerating regular diet, BS 159, 268, 204. Patient also urinating, patient had 1moderate formed BM today. Patient will use urinal at bedside but also use the toilet. Patient has napped on and off in bed today, but also sat in chair. Jackelyn was in today to perform patient's dressing change.
[2022-07-14] MEDS: ENOXAPARIN 40 MG/0.4 ML INJ SUBCUT (22:59)
[2022-07-14] MEDS: PRAZOSIN HCL 1 MG CAPSULE PO (23:00)
[2022-07-14] MEDS: MELATONIN 3 MG TABLET PO (23:02)
[2022-07-15 03:00] VITALS: BP 119/76; PULSE 69; RESP 16; TEMP 36.7; O2SAT 95
[2022-07-15] MEDS: CEFAZOLIN 2 GM in 0.9 % SODIUM CHLORIDE Mini-bag 100 ML IVPB ×2 (04:00→12:17)
[2022-07-15] MEDS: OMEPRAZOLE 20 MG CAPSULE DR 40 MG PO (06:09)
[2022-07-15] MEDS: OXYCODONE 5 MG TABLET PO ×3 (06:18→16:36)
[2022-07-15 07:00] VITALS: BP 109/72; PULSE 67; RESP 16; TEMP 36.8; O2SAT 96
--- NOTE | 2022-07-15 08:07 | PC.NURSE ---
Pt alert and oriented x3. Pt reports 8-10/10 pain in right foot, pain managed with PRN medications. Pt right foot dressing is CDI. Pt is up in room IND and tolerating a regular diet. Pt slept through most of night only waking when medications were administered. Pt is vitally stable.
[2022-07-15] MEDS: SENNOSIDES/DOCUSATE TABLET 2 TAB PO ×2 (08:48→21:19)
[2022-07-15] MEDS: ESCITALOPRAM 10 MG TABLET 20 MG PO (08:48)
[2022-07-15 11:00] VITALS: BP 114/77; PULSE 67; RESP 16; TEMP 36.8; O2SAT 94
--- NOTE | 2022-07-15 12:26 | PC.SOCIAL ---
Discharge planning: Per Yohana Waggoner at [facility] Case Management, the MA application that was submitted by the [facility] last week was the wrong application. soap worker completed the correct [facility] [place] application with pt today and faxed that completed form to Yohana for processing. This form is needed to confirm waiver eligibility which would cover cost of an assisted living facility as pt does not have the funds to pay privately. Pt also signed a released of information form for Yohana to discuss pt's financial situation and coverage with [facility] living as they are currently assessing him for their facility. soap worker to follow up as needed.
--- NOTE | 2022-07-15 14:49 | P.IMPN_ITS ---
Progress Note: A&P Assessment and plan (1) Osteomyelitis: Problem details: - s/p amputation R great toe on 07/08 - continue Ancef (started 07/08) for MSSA culture result. Transition to oral Keflex 07/15/2022, 1 g b.i.d. - 07/13/22 OR closure of surgical wounds. Status: Acute (2) Diabetes: Problem details: - A1C 14.1 02/28 - repeating in a.m. - Blood sugars have been 268, 204, 269, 183, 255 - adding metformin ER 500 mg b.i.d. with food, splitting his Levemir dose to 20 units b.i.d.. Follow this closely. - outpatient compliance is poor 2/2 comorbidities, in addition to housing and food insecurity Status: Chronic (3) Paranoid schizophrenia: Problem details: diagnosed as paranoid schizophrenic per chart review - Trey Kim is Psychiatrist - receives Abilify Q28 days, last administration 06/18/22 (next injection due 07/16), transition to oral Abilify 10 mg daily, 1st dose 07/15/22. We can discuss IM injections based on his discharge housing plan. Status: Acute Subjective Date Seen: 07/15/22 Interval history: Daily Progress Note - Hospital Medicine Day #: 9 CC: Diabetic foot infection with associated osteomyelitis, history of TBI, nursing home care Vitals reviewed and are normal. He is on room air. CBC has not been drawn since 07/11. Last chemistries were 07/12. Review of micro Right toe/foot Group B strep, pansensitive, and staph aureus, coagulase nega tive, growing from his wounds both on 07/06 and 07/08. Blood cultures were followed for 5 days and remained negative. Date of procedure: 07/13/22 Pre-op diagnosis: 1. Diabetic ulceration possible underlying osteomyelitis right foot Post-op diagnosis: 1. Diabetic ulceration possible underlying osteomyelitis right foot Type of Procedure: 1. Partial 5th ray resection right foot OVERNIGHT UPDATES FROM STAFF & MED, LAB, IMAGING UPDATES -Matt is agreeable and easy to care for. His vitals are stable. He has been on Ancef for greater than a week. Bone cultures have not yet returned via pathology tab but his wound cultures show essentially a pansensitive group B strep and coag-negative staph aureus. Objective: Vitals: see above Lungs: Clear. Cardiac: S1S2. His right foot is [place] wrapped with padding and not taken down this morning. Dr. Stephanie seth is been following his wounds. Disposition/Potential discharge - Likely to return to previous living situation. Total time is 35 minutes with greater than 50% spent in counseling and coordination of care. Exam Const: Vital Signs, click to edit/add: Vital Signs - 24 hr 07/14/22 15:00 07/14/22 15:00 07/14/22 20:10 Temperature 97.7 F 97.7 F Pulse Rate [Left A pical] 60 Pulse Rate [Left D orsalis Pedis] 60 Pulse Rate [Pulse Oximeter] 67 67 60 Respiratory Rate 14 14 16 Blood Pressure [Le ft Arm] 174/98 H 156/84 H Pulse Oximetry 95 94 Oxygen Delivery Me thod Room Air Room Air 07/14/22 23:00 07/14/22 23:00 07/15/22 03:00 Temperature 97.8 F 98.1 F Pulse Rate [Left A pical] 67 67 Pulse Rate [Left D orsalis Pedis] 67 67 Pulse Rate [Pulse Oximeter] 67 67 69 Respiratory Rate 16 16 16 Blood Pressure [Le ft Arm] 118/75 119/76 Pulse Oximetry 98 95 Oxygen Delivery Id thod Room Air Room Air 07/15/22 07:00 07/15/22 07:00 07/15/22 11:00 Temperature 98.3 F 98.3 F Pulse Rate [Left A pical] Pulse Rate [Left D orsalis Pedis] Pulse Rate [Pulse Oximeter] 67 67 67 Respiratory Rate 16 16 16 Blood Pressure [Le ft Arm] 109/72 114/77 Pulse Oximetry 96 94 Oxygen Delivery Id thod Room Air Room Air
[2022-07-15 15:00] VITALS: BP 135/83; PULSE 79; RESP 16; TEMP 36.8; O2SAT 96
[2022-07-15] MEDS: ARIPiprazole 10 MG TABLET PO (15:04)
[2022-07-15] MEDS: METFORMIN ER 500 MG PO (18:29)
--- NOTE | 2022-07-15 18:46 | PC.NURSE ---
End of Shift: Pt. pleasant and cooperative. Pt. VSS , lungs clear, BS WNL, IV intact. Patient independent with walker. Patient always rates pain 5-10/ patient takes 5 mg of oxy upon request, tylenol given x2 today. Patient tolerating regular diet, BS 183, 255, 273. Pt. will use urinal at bedside but also use the toilet. Patient has napped on and off in bed today, but also sat in chair. [place] to do dressing changes.
[2022-07-15 19:00] VITALS: BP 160/88; PULSE 72; RESP 16; TEMP 37.2; O2SAT 96
[2022-07-15] MEDS: ENOXAPARIN 40 MG/0.4 ML INJ SUBCUT (21:18)
[2022-07-15] MEDS: cephALEXin 500 MG CAPSULE 1000 MG PO (21:19)
[2022-07-15] MEDS: CALCIUM CARBONATE 500 MG TABLET PO (21:19)
[2022-07-15] MEDS: MELATONIN 3 MG TABLET PO (21:19)
[2022-07-15] MEDS: PRAZOSIN HCL 1 MG CAPSULE PO (21:27)
[2022-07-15 23:00] VITALS: BP 143/82; PULSE 63; RESP 16; RESP 18; O2SAT 96
[2022-07-16] VITALS (7 sets, daily range): BP systolic 118–171; BP diastolic 75–109; PULSE 62–90; RESP 16–18; TEMP 36.1–37; O2SAT 94–97
[2022-07-16] MEDS: OXYCODONE 5 MG TABLET PO ×4 (03:29→17:55)
[2022-07-16 06:34] LABS: Ionized Calcium* 1.13 mmol/L (1.11-1.30)
[2022-07-16 06:39] LABS: Hematocrit 45.2 % (37.0-53.0); Hemoglobin* 15.1 gm/dL (13.5-17.5); Mean Corpuscular HGB Conc 33 gm/dL (32-36); Mean Corpuscular Hemoglobin 28 pg (26-34); Mean Corpuscular Volume 84 fL (80-100); Platelet Count* 341 K/uL (140-440); Red Blood Count 5.38 m/uL (4.30-5.90); White Blood Count* 8.26 K/uL (4.50-11.00)
[2022-07-16 06:52] LABS: Slide Review Reflex No
[2022-07-16 06:56] LABS: Chloride* 101 mmol/L (96-114); Sodium* 134 mmol/L (135-149)
[2022-07-16 06:57] LABS: Potassium* 4.2 mmol/L (3.6-5.1)
[2022-07-16 06:59] LABS: Creatinine* 0.5 mg/dL (0.5-1.5); Estimated Glomerular Filt Rate 129 ml/min
[2022-07-16 07:00] LABS: Blood Urea Nitrogen* 12 mg/dL (5-24); Calcium* 8.6 mg/dL (8.4-10.6); Carbon Dioxide* 31 mmol/L (20-32); Glucose* 274 mg/dL (60-115)
[2022-07-16] MEDS: OMEPRAZOLE 20 MG CAPSULE DR 40 MG PO (07:01)
[2022-07-16 07:03] LABS: C Reactive Protein* 2.8 mg/dL (0.5-1.0)
[2022-07-16 07:05] LABS: Hemoglobin A1C* 11.17 % (0-5.6)
[2022-07-16 07:16] LABS: Magnesium* 1.9 mg/dL (1.5-2.6)
--- NOTE | 2022-07-16 07:19 | PC.NURSE ---
Pt alert and oriented x3. Pt reports 7/10 pain in right foot, pain managed with PRN medications. Pt right foot dressing is CDI. Pt is up IND?in room, and uses urinal at bedside. Pt is tolerating a regular diet.?Pt slept throughout most of night.
[2022-07-16] MEDS: CALCIUM CARBONATE 500 MG TABLET PO ×2 (08:34→21:06)
[2022-07-16] MEDS: ACETAMINOPHEN 325 MG TABLET PO ×2 (08:35→14:13)
[2022-07-16] MEDS: SENNOSIDES/DOCUSATE TABLET 2 TAB PO ×2 (08:35→21:06)
[2022-07-16] MEDS: METFORMIN ER 500 MG PO ×2 (08:35→18:56)
[2022-07-16] MEDS: cephALEXin 500 MG CAPSULE 1000 MG PO ×2 (08:36→21:06)
[2022-07-16] MEDS: ESCITALOPRAM 10 MG TABLET 20 MG PO (08:36)
[2022-07-16] MEDS: ARIPiprazole 10 MG TABLET PO (08:37)
[2022-07-16] MEDS: SODIUM CHLORIDE 0.9 % (FLUSH) 10 ML SYRINGE IVF (08:37)
--- NOTE | 2022-07-16 11:31 | PC.SOCIAL ---
Discharge plan: Pt has been accepted to [facility] living for admit on Wednesday07/20/22. [facility] is sending a list of information required to be sent prior to discharge. Prescriptions need to be sent to [facility] in [place]. Pt needs a negative TB test. [facility] will assist pt in getting his belongings from the [facility] on Wednesday. [facility] will send transportation on Wednesday. Discharge time to be determined. Met with pt who is pleased and agrees with this discharge plan. 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
--- NOTE | 2022-07-16 12:16 | PM.IMPN1 ---
Progress Note: A&P Assessment and plan (1) Osteomyelitis: Problem details: - s/p amputation R great toe on 07/08 - status post IV Rocephin vancomycin, Ancef for MSSA culture result. Transition to oral Keflex 07/15/2022, 1 g b.i.d. - 07/13/22 OR closure of surgical wounds. Status: Acute (2) Diabetes: Problem details: - A1c 11.2. - blood sugars have been greater than 250. 07/15/2022 metformin ER 500 mg b.i.d. with food, splitting his Levemir dose to 25 units b.i.d.. Follow this closely. - outpatient compliance is poor 2/2 comorbidities, in addition to housing and food insecurity Status: Chronic (3) Paranoid schizophrenia: Problem details: diagnosed as paranoid schizophrenic per chart review - Trey Kim is Psychiatrist - receives Abilify Q28 days, last administration 06/18/22 (next injection due 07/16), transition to oral Abilify 10 mg daily, 1st dose 07/15/22. We can discuss IM injections based on his discharge housing plan. Status: Acute Subjective Date Seen: 07/16/22 Interval history: Daily Progress Note - Hospital Medicine Day #: 10 s/p Rocephin and Vanc 07/06-07/07 s/p ANCEF 07/08-07/15 Day 2 of Keflex 1 gram BID (started evening of 07/15) CC: Diabetic foot infection with associated osteomyelitis, history of TBI and poor self care, nursing home care Hypertensive this morning 171/94. Pulse 67. Resp is 18. Afebrile. 94% on room air. This blood pressure was mostly isolated. He return to 123/75 after his interview with [facility] CBC is unremarkable Chemistries are essentially unremarkable. Sodium is a touch low 134. CRP has down trended nicely. Max was 16.2 and is down to 2.8 today. A1c 11.2 Blood sugars 264, 244, 304, 273, 255 I adjusted insulin dosing yesterday. He was on 38 units of Levemir nightly and I transitioned him to 25 units b.i.d. I also started him on oral metformin 500 mg b.i.d. with food He has needed between 2 and 4 units of regular insulin for correction Q a.c. at bedtime. Review of micro Right toe/foot Group B strep, pansensitive, and staph aureus, coagulase negative, growing from his wounds both on 07/06 and 07/08. Blood cultures were followed for 5 days and remained negative. Date of procedure: 07/13/22 1. Partial 5th ray resection right foot OVERNIGHT UPDATES FROM STAFF & MED, LAB, IMAGING UPDATES -Matt is agreeable and easy to care for. His vitals are stable. He transition oral Keflex yesterday. Bone cultures have not yet returned via pathology tab but his wound cultures show essentially a pansensitive group B strep and coag-negative staph aureus. -he met with the [facility] admission nurse. Tentatively set for 07/20 for admission. They have asked us to TB screen him. Objective: Vitals: see above Lungs: Clear. Cardiac: S1S2. His right foot is Refugio wrapped with padding and not taken down this morning. His wound care should be Betadine soaked 4x4s, nonstick dressing, heel weight-bearing postsurgical shoe. This can be done every 3 days. Showering before. Disposition/Potential discharge - Accepted to [facility] assisted living. Total time is 35 minutes with greater than 50% spent in counseling and coordination of care. Exam Const: Vital Signs, click to edit/add: Vital Signs - 24 hr 07/15/22 15:00 07/15/22 15:00 07/15/22 19:00 Temperature 98.3 F 99.0 F Pulse Rate [Pulse Oximeter] 79 79 72 Respiratory Rate 16 16 16 Blood Pressure [Le ft Arm] 135/83 Blood Pressure [Ri ght Arm] 160/88 H Pulse Oximetry 96 96 Oxygen Delivery Me thod Room Air Room Air 07/15/22 23:00 07/15/22 23:00 07/16/22 03:00 Temperature 98.6 F Pulse Rate [Pulse Oximeter] 63 67 Respiratory Rate 16 18 18 Blood Pressure [Le ft Arm] Blood Pressure [Ri ght Arm] 143/82 H 171/94 H Pulse Oximetry 96 94 Oxygen Delivery Me thod Room Air Room Air 07/16/22 08:35 Temperature 97 F L Pulse Rate [Pulse Oximeter] Respiratory Rate Blood Pressure [Le ft Arm] Blood Pressure [Ri ght Arm] Pulse Oximetry Oxygen Delivery Me thod Labs Labs: Laboratory Results - last 24 hr 07/16/22 07/16/22 07/16/22 05:48 05:48 05:48 WBC 8.26 RBC 5.38 Hgb 15.1 Hct 45.2 MCV 84 MCH 28 MCHC 33 Plt Count 341 Sodium 134 L Potassium 4.2 Chloride 101 Carbon Dioxide 31 BUN 12 Creatinine 0.5 Estimated Creat Clear 200.80 Estimated GFR 129 Glucose 274 H Hemoglobin A1c Calcium 8.6 Ionized Calcium Magda 1.13 Magnesium 1.9 C-Reactive Protein 2.8 H TSH 07/16/22 07/16/22 05:48 05:48 WBC RBC Hgb Hct MCV MCH MCHC Plt Count Sodium Potassium Chloride Carbon Dioxide BUN Creatinine Estimated Creat Clear Estimated GFR Glucose Hemoglobin A1c 11.17 H Calcium Ionized Calcium Magda Magnesium C-Reactive Protein TSH 1.360
[2022-07-16 12:23] LABS: Lab Add On Test New Spec Needed
--- NOTE | 2022-07-16 12:30 | ONC.NURNOTE ---
pleasant, coporative. alert and oriented. no behavior issues. vs wnl. ls clear. heart rate reg s1s2. poss bs. and flatus. pain controlled with tylenol scheduled and oxy on reqest this am for pain of 3. jordin po. no nausea. Rt leg elevated when in bed. up ad sasha to wash up, chair. Heal touch bear weighting. using a walker. steady when up. bs 244 this am ss reg 2 units. bs 1130 264. ss reg 3 units. [facility] here this am to assess pt for for transfer. pt positive about discharging there. dsg dry and intact. Dressing changer done by Dr. Navarro per previous shift RN.
[2022-07-16] MEDS: ENOXAPARIN 40 MG/0.4 ML INJ SUBCUT (21:06)
[2022-07-16] MEDS: PRAZOSIN HCL 1 MG CAPSULE PO (21:06)
[2022-07-16] MEDS: MELATONIN 3 MG TABLET PO (21:06)
--- NOTE | 2022-07-16 23:31 | PC.NURSE ---
Shift Note [id number]:
[2022-07-17] VITALS (7 sets, daily range): BP systolic 109–160; BP diastolic 73–91; PULSE 64–80; RESP 14–18; TEMP 36.4–37.4; O2SAT 93–96
[2022-07-17] MEDS: OXYCODONE 5 MG TABLET PO ×3 (03:31→16:03)
--- NOTE | 2022-07-17 05:19 | PC.NURSE ---
Addendum entered by Olga Smyth RN 07/17/22 06:45: BED ALARM NOT ON. PT AMBULATING WITHIN ROOM INDEPENDENTLY WITH WALKER. Original Note: END OF SHIFT NOTE: PT PLEASANT AND COOPERATIVE WITH CARES. PT CP, SOB, N/V. AMBULATES WITH WALKER WEIGHT BEARING TO HEEL ONLY ON RIGHT FOOT. VSS ON RA; AFEBRILE. PT RATES PAIN TO RIGHT FOOT 1-8/10 WITH RELIEF FROM ELEVATION, SPLINTING, PRN MEDICATION. BED ALARM ON AND CALL LIGHT WITHIN PT?S REACH
[2022-07-17] MEDS: OMEPRAZOLE 20 MG CAPSULE DR 40 MG PO (06:23)
--- NOTE | 2022-07-17 07:04 | P.PODPN_ITS ---
Podiatry-PN: Subj Subjective Date Seen: 07/17/22 Interval history: Subjective: Patient seen bedside this a.m. without complaints. States he no longer has any foot pain that he notices. Overall doing well. He is happy he will be transitioning to [facility] on Wednesday. Objective: Vitals - afebrile with vital signs stable. Right foot dressing is intact without strike through. After removal the lateral aspect of the medial incision shows some maceration otherwise intact and healing well. The lateral incision shows some slight maceration plantar centrally. There is no signs of infection, no purulence and minimal edema. Dorsum of the foot now appears normal. Culture: Group B strep and Staph aureus pansensitive Labs: Normal white count and normalizing CRP. Assessment: S/p right great toe amputation, S/p partial 5th ray resection right foot Plan: Matt is doing quite well. Sterile dressing done today. His wound care should be Betadine to the incision and macerated areas then covered with 4x4s, Kerlix roll and Refugio wrap. Heel weight-bearing postsurgical shoe. This can be done every 3 days. Next dressing change should be Wednesday before his discharge. Follow-up with Dr. Hayden Wednesday at [facility]. Recommend continued antibiotics at discharge. Exam Const: Vital Signs, click to edit/add: Vital Signs - 24 hr 07/16/22 08:35 07/16/22 09:00 07/16/22 11:45 Temperature 97 F L 97 F L 97 F L Pulse Rate [Pulse Oximeter] 68 66 Respiratory Rate 16 16 Blood Pressure [Le ft Arm] Blood Pressure [Ri ght Arm] 118/78 123/75 Pulse Oximetry 96 96 Oxygen Delivery Me thod Room Air Room Air 07/16/22 15:00 07/16/22 15:00 07/16/22 19:00 Temperature 98.3 F 98 F Pulse Rate [Pulse Oximeter] 74 74 90 Respiratory Rate 16 16 16 Blood Pressure [Le ft Arm] 136/109 H Blood Pressure [Ri ght Arm] 138/88 Pulse Oximetry 97 96 Oxygen Delivery Me thod Room Air Room Air 07/16/22 23:00 07/16/22 23:00 07/17/22 03:00 Temperature 98.4 F 98.4 F Pulse Rate [Pulse Oximeter] 62 62 64 Respiratory Rate 16 16 18 Blood Pressure [Le ft Arm] 149/91 H 137/84 Blood Pressure [Ri ght Arm] Pulse Oximetry 94 95 Oxygen Delivery Me thod Room Air Room Air Podiatry-PN: Obj Labs Labs: Laboratory Results - last 24 hr 07/16/22 07/16/22 07/16/22 05:48 05:48 05:48 Sodium 134 L Potassium 4.2 Chloride 101 Carbon Dioxide 31 BUN 12 Creatinine 0.5 Estimated Creat Clear 200.80 Estimated GFR 129 Glucose 274 H Hemoglobin A1c 11.17 H Calcium 8.6 Magnesium 1.9 C-Reactive Protein 2.8 H TSH 1.360
[2022-07-17] MEDS: METFORMIN ER 500 MG PO ×2 (07:46→17:54)
[2022-07-17] MEDS: CALCIUM CARBONATE 500 MG TABLET PO ×2 (08:44→20:34)
[2022-07-17] MEDS: ESCITALOPRAM 10 MG TABLET 20 MG PO (08:44)
[2022-07-17] MEDS: cephALEXin 500 MG CAPSULE 1000 MG PO ×2 (08:45→20:34)
[2022-07-17] MEDS: SENNOSIDES/DOCUSATE TABLET 2 TAB PO ×2 (08:45→20:35)
[2022-07-17] MEDS: ARIPiprazole 10 MG TABLET PO (08:46)
[2022-07-17] MEDS: ACETAMINOPHEN 325 MG TABLET PO ×2 (08:47→16:02)
--- NOTE | 2022-07-17 13:08 | PC.SOCIAL ---
Discharge Planning: Met with patient, Matt to discuss discharge plan. Matt is looking forward to moving into [facility]. Asked Matt if he wanted to contact or have this insurance underwriter sales contact any family members about his move to [facility] on Wednesday, July 20, 2022. Matt declined anyone being contacted on his behalf. Matt has now been using the room phone to contact people as his cell phone is not working currently. Matt is aware that the [facility] will be bringing his personal items from the skilled nursing over to [facility] once he has moved. Matt had some questions about what the bathroom is like at [facility], and will he have help putting his clothing away. Reassured Matt that they have people at [facility] to assist him there with all tasks. Matt signed a release of information from [facility] for this insurance underwriter sales. This insurance underwriter sales was in contact with Christi from [facility], who is working on Matt's financial for assistance. She requested forms, face sheet and progress note that this insurance underwriter sales has faxed. She will need a discharge summary faxed to [phone] on Wednesday. She would like to talk to Matt via phone today after 3:00pm. This insurance underwriter sales will let Matt know about this and make sure he is set to accept this phone call. Social work to assist as needed.
--- NOTE | 2022-07-17 13:29 | PM.IMPN1 ---
Progress Note: A&P Assessment and plan (1) Osteomyelitis: Problem details: - s/p amputation R great toe on 07/08 - status post IV Rocephin vancomycin, Ancef for MSSA culture result. Transition to oral Keflex 07/15/2022, 1 g b.i.d. - 07/13/22 OR closure of surgical wounds. - Neg path for osteo from surgery. Status: Acute (2) Diabetes: Problem details: - A1c 11.2. - blood sugars are coming down. On 07/15/2022 metformin ER 500 mg b.i.d. with food, splitting his Levemir dose to 25 units b.i.d.. Follow this closely. - outpatient compliance is poor 2/2 comorbidities, in addition to housing and food insecurity Status: Chronic (3) Paranoid schizophrenia: Problem details: diagnosed as paranoid schizophrenic per chart review - Trey Kim is Psychiatrist - receives Abilify Q28 days, last administration 06/18/22 (next injection due 07/16), transition to oral Abilify 10 mg daily, 1st dose 07/15/22. We can discuss IM injections based on his discharge housing plan. Status: Acute Subjective Date Seen: 07/17/22 Interval history: Daily Progress Note - Hospital Medicine Day #: 11 s/p Rocephin and Vanc 07/06-07/07 s/p ANCEF 07/08-07/15 Day 3 of Keflex 1 gram BID (started evening of 07/15) CC: Diabetic foot infection with associated osteomyelitis, history of TBI and poor self care, retirement care All vital signs stable CBC is unremarkable Chemistries are essentially unremarkable. Sodium is a touch low 134. CRP has down trended nicely. Max was 16.2 and is down to 2.8 today. A1c 11.2 Blood sugars 244-217 I adjusted insulin dosing. He was on 38 units of Levemir nightly and I transitioned him to 25 units b.i.d. I also started him on oral metformin 500 mg b.i.d. with food He has needed between 2 and 4 units of regular insulin for correction Q a.c. at bedtime. Review of micro Right toe/foot Group B strep, pansensitive, and staph aureus, coagulase negative, growing from his wounds both on 07/06 and 07/08. Blood cultures were followed for 5 days and remained negative. Date of procedure: 07/13/22 1. Partial 5th ray resection right foot OVERNIGHT UPDATES FROM STAFF & MED, LAB, IMAGING UPDATES -Matt is agreeable and easy to care for. He states his foot pain has resolved. His vitals are stable. He transition oral Keflex on 07/15. Pathology reviewed: Right 5th metatarsal excision is negative for acute osteomyelitis. Wound cultures show essentially a pansensitive group B strep and coag-negative staph aureus. -he met with the [facility] admission nurse. Tentatively set for 07/20 for admission. They have asked us to TB screen him; QuantiFERON gold is pending, drawn 07/16/2022 Objective: Vitals: see above Lungs: Clear. Cardiac: S1S2. His right foot is Refugio wrapped with padding and not taken down this morning. His wound care should be Betadine soaked 4x4s, nonstick dressing, heel weight-bearing postsurgical shoe. This can be done every 3 days. Showering before. Disposition/Potential discharge - Accepted to [facility] assisted living. Total time is 35 minutes with greater than 50% spent in counseling and coordination of care. Exam Const: Vital Signs, click to edit/add: Vital Signs - 24 hr 07/16/22 15:00 07/16/22 15:00 07/16/22 19:00 Temperature 98.3 F 98 F Pulse Rate [Pulse Oximeter] 74 74 90 Respiratory Rate 16 16 16 Blood Pressure [Le ft Arm] 136/109 H Blood Pressure [Ri ght Arm] 138/88 Pulse Oximetry 97 96 Oxygen Delivery Me thod Room Air Room Air 07/16/22 23:00 07/16/22 23:00 07/17/22 03:00 Temperature 98.4 F 98.4 F Pulse Rate [Pulse Oximeter] 62 62 64 Respiratory Rate 16 16 18 Blood Pressure [Le ft Arm] 149/91 H 137/84 Blood Pressure [Ri ght Arm] Pulse Oximetry 94 95 Oxygen Delivery Me thod Room Air Room Air 07/17/22 07:00 07/17/22 11:00 Temperature 97.6 F 99.3 F Pulse Rate [Pulse Oximeter] 68 80 Respiratory Rate 14 14 Blood Pressure [Le ft Arm] 109/74 Blood Pressure [Ri ght Arm] 125/82 Pulse Oximetry 93 96 Oxygen Delivery Me thod Room Air Room Air
--- NOTE | 2022-07-17 14:46 | PC.NURSE ---
A&O VS WNL. Right foot dressing CDI. Dressing last changed 07/17/[address] Hayden. Complained of pain in right foot. Relieved with PRN medication. Right HT weight bearing independent w/ walker. Showered this am and tolerated well.
--- NOTE | 2022-07-17 15:15 | PC.SOCIAL ---
Addendum: This comic book writer faxed signed release and current dressing change instructions to [facility] via fax [phone] for Alma Kiran [phone] X 1. [facility] requests the following; standing orders, six prescriptions to be sent to [facility] in [place], discharge summary, and glucometer and test strips send to [facility], report of negative Mantoux. Printed list of requests given to hospitalist this morning. Checked back in afternoon with hospitalist, medications must be faxed today. Asked nursing to change pharmacy to correct one for hospitalist. Hospitalist will follow up with all paperwork. Social Work to follow up as needed.
--- NOTE | 2022-07-17 18:08 | PC.NURSE ---
Patient remains independent in room. Patient VSS throughout shift. Patient reported today that he found himself talking to himself today. Patient inquired about Abilify injection. This nurse notified patient that he is taking abilify 10mg daily in place of the monthly injection. Patient denies auditory and visual hallucinations at this time. Patient denies SI/HI. Patient encouraged to report to staff if he feels the talking to himself is becoming worse or unmanageable and perhaps the provider will look into the medication dosage. Patient agreeable with this plan. Patient pleasant and cooperative. Patient refused nutritional supplement and states it is too sweet. Patient has an excellent appetite and orders well portioned food. Patient pain controlled with prn Tylenol and oxycodone. Patient plan is to discharge to [facility] on 07/20.
--- NOTE | 2022-07-17 19:12 | PC.NURSE ---
nursing notified provider that patient states he is starting to talk to himself more. provider aware. no changes at this time.
[2022-07-17] MEDS: MELATONIN 3 MG TABLET PO (20:34)
[2022-07-17] MEDS: PRAZOSIN HCL 1 MG CAPSULE PO (20:34)
[2022-07-17] MEDS: ENOXAPARIN 40 MG/0.4 ML INJ SUBCUT (20:35)
[2022-07-18 03:00] VITALS: RESP 16
[2022-07-18] MEDS: OMEPRAZOLE 20 MG CAPSULE DR 40 MG PO (06:12)
--- NOTE | 2022-07-18 06:42 | PC.NURSE ---
END OF SHIFT NOTE: PT FATIGUED AND COOPERATIVE. PT DENIES CP, SOB, N/V. A&O x3. AMBULATES INDEPEDENTLY WITH WALKER?WITHIN ROOM. VSS ON RA; AFEBRILE. CALL LIGHT WITHIN PT REACH. PT HAD BM THIS MORNING
[2022-07-18 07:00] VITALS: BP 117/76; PULSE 66; PULSE 71; RESP 16; RESP 18; TEMP 36.9; O2SAT 94
[2022-07-18] MEDS: CALCIUM CARBONATE 500 MG TABLET PO ×2 (09:13→21:52)
[2022-07-18] MEDS: SENNOSIDES/DOCUSATE TABLET 2 TAB PO ×2 (09:13→21:53)
[2022-07-18] MEDS: cephALEXin 500 MG CAPSULE 1000 MG PO ×2 (09:13→21:51)
[2022-07-18] MEDS: ESCITALOPRAM 10 MG TABLET 20 MG PO (09:13)
[2022-07-18] MEDS: ARIPiprazole 10 MG TABLET PO (09:14)
[2022-07-18] MEDS: METFORMIN ER 500 MG PO ×2 (09:14→18:20)
--- NOTE | 2022-07-18 09:35 | PC.NURSE ---
notified provider that patient reports the talking to himself is becoming worst and more unmanageable. Provider suggests nursing speak with pharmacy to inquire about previous dosage of injectable medication patient was taking prior to assist with these symptoms.
[2022-07-18 11:00] VITALS: BP 124/93; PULSE 79; RESP 18; TEMP 37.2; O2SAT 93
[2022-07-18] MEDS: ACETAMINOPHEN 325 MG TABLET PO (14:05)
--- NOTE | 2022-07-18 14:47 | PM.IMPN1 ---
Progress Note: A&P Assessment and plan (1) Osteomyelitis: Problem details: - s/p amputation R great toe on 07/08 - status post IV Rocephin vancomycin, Ancef for MSSA culture result. Transition to oral Keflex 07/15/2022, 1 g b.i.d. - 07/13/22 OR closure of surgical wounds. - Neg path for osteo from surgery. Status: Acute (2) Diabetes: Problem details: - A1c 11.2. - blood sugars are coming down. On 07/15/2022 metformin ER 500 mg b.i.d. with food, splitting his Levemir dose to 25 units b.i.d.. Follow this closely. - outpatient compliance is poor 2/2 comorbidities, in addition to housing and food insecurity Status: Chronic (3) Paranoid schizophrenia: Problem details: diagnosed as paranoid schizophrenic per chart review - Trey Kim is Psychiatrist - receives Abilify Q28 days, last administration 06/18/22 (next injection due 07/16), transition to oral Abilify 10 mg daily, 1st dose 07/15/22. We can discuss IM injections based on his discharge housing plan. Status: Acute Assessment and Plan: Possible discharge this coming Wednesday to [facility] in [place], [place]. Plan 1. Patient agreeable to above stated plans and recommendations. 2. Continue supportive efforts. Time Spent With Patient Total time spent: 25 minutes Subjective Time Seen by Provider: 10:30 Date Seen: 07/18/22 Interval history: Daily Progress Note - Hospital Medicine Day #: 12 s/p Rocephin and Vanc 07/06-07/07 s/p ANCEF 07/08-07/15 Day 4 of Keflex 1 gram BID (started evening of 07/15) CC: Diabetic foot infection with associated osteomyelitis, history of TBI and poor self care, skilled nursing care All vital signs stable CBC is unremarkable Chemistries are essentially unremarkable. Sodium is a touch low 134. CRP has down trended nicely. Max was 16.2 and is down to 2.8 today. A1c 11.2 Blood sugars 244-217 I adjusted insulin dosing. He was on 38 units of Levemir nightly and I transitioned him to 25 units b.i.d. I also started him on oral metformin 500 mg b.i.d. with food He has needed between 2 and 4 units of regular insulin for correction Q a.c. at bedtime. Review of micro Right toe/foot Group B strep, pansensitive, and staph aureus, coagulase negative, growing from his wounds both on 07/06 and 07/08. Blood cultures were followed for 5 days and remained negative. Date of procedure: 07/13/22 1. Partial 5th ray resection right foot OVERNIGHT UPDATES FROM STAFF & MED, LAB, IMAGING UPDATES -Matt is agreeable and easy to care for. He states his foot pain has resolved. Wants to try to be little more physically active than he has been heretofore. His vitals are stable. He transition oral Keflex on 07/15. Pathology reviewed: Right 5th metatarsal excision is negative for acute osteomyelitis. Wound cultures show essentially a pansensitive group B strep and coag-negative staph aureus. -he met with the [facility] admission nurse. Tentatively set for 07/20 for admission. They have asked us to TB screen him; QuantiFERON gold is pending, drawn 07/16/2022 Exam Narrative: Exam Narrative: Appears comfortable no acute distress. Friendly and cooperative. Alert and oriented to self, place, in part to time and situation. Lungs clear to auscultation. Heart tones with regular rhythm, normal S1-S2. Abdomen is benign. Ambulates in room and bathroom. Const: Vital Signs, click to edit/add: Vital Signs - 24 hr 07/17/22 15:00 07/17/22 15:00 07/17/22 19:00 Temperature 98.0 F 98.4 F Pulse Rate [Pulse Oximeter] 80 67 65 Respiratory Rate 16 16 16 Blood Pressure [Le ft Arm] 116/73 Blood Pressure [Ri ght Arm] 160/91 H Pulse Oximetry 96 96 Oxygen Delivery Me thod Room Air Room Air 07/17/22 22:50 07/17/22 23:00 07/18/22 03:00 Temperature 98.4 F Pulse Rate [Pulse Oximeter] 65 66 Respiratory Rate 16 16 16 Blood Pressure [Le ft Arm] Blood Pressure [Ri ght Arm] 145/81 H Pulse Oximetry 96 Oxygen Delivery Me thod Room Air Room Air 07/18/22 07:00 07/18/22 07:00 07/18/22 11:00 Temperature 98.4 F 98.9 F Pulse Rate [Pulse Oximeter] 66 71 79 Respiratory Rate 16 18 18 Blood Pressure [Le ft Arm] 117/76 124/93 H Blood Pressure [Ri ght Arm] Pulse Oximetry 94 93 Oxygen Delivery Me thod Room Air Room Air Documenting provider has reviewed patient's vital signs: yes
[2022-07-18 15:00] VITALS: BP 141/91; PULSE 79; PULSE 82; RESP 18; TEMP 36.6; O2SAT 97
[2022-07-18] MEDS: OXYCODONE 5 MG TABLET PO ×2 (16:06→22:09)
[2022-07-18 19:00] VITALS: BP 147/84; PULSE 64; RESP 16; TEMP 37; O2SAT 95
--- NOTE | 2022-07-18 19:29 | CRLHL7_ITS ---
For Patients: As a result of the Cures Act, medical imaging exams and procedure reports are released immediately into your electronic medical record. You may view this report before your referring provider. If you have questions, please contact your health care provider. INDICATION: TB check. TECHNIQUE: Chest 1 view. COMPARISON: None. FINDINGS: Cardiovascular and mediastinum: The heart is located in the right hemithorax. Cardiomediastinal silhouette is otherwise within normal limits. Lungs and pleural spaces: Linear opacity in the right lower lung zone, likely reflecting subsegmental atelectasis. No focal consolidation. No sign of pleural effusion. No pneumothorax. Bones and soft tissues: No significant findings. IMPRESSION: 1. No acute airspace disease. 2. 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 Dictated by Sanjeev Currie MD @ 07/18/2022 9:08:03 PM (Electronically Signed)
[2022-07-18] MEDS: PRAZOSIN HCL 1 MG CAPSULE PO (21:51)
[2022-07-18] MEDS: ENOXAPARIN 40 MG/0.4 ML INJ SUBCUT (21:51)
[2022-07-18] MEDS: MELATONIN 3 MG TABLET PO (21:53)
[2022-07-18 23:00] VITALS: PULSE 64; RESP 14; RESP 16
[2022-07-19] VITALS (7 sets, daily range): BP systolic 104–125; BP diastolic 72–79; PULSE 65–95; RESP 16–18; TEMP 36.5–37; O2SAT 95–97
--- NOTE | 2022-07-19 06:15 | PC.NURSE ---
END OF SHIFT NOTE: PT PLEASANTLY CONFUSED. COOPERATIVE WITH CARES. HX OF TBI. DENIES CP, SOB, N/V. AMBULATES INDEPENDENTLY WITH WALKER WITHIN ROOM. VSS ON RA; AFEBRILE. BED ALARM ON AND CALL LIGHT WITHIN PT?S REACH.
[2022-07-19] MEDS: OMEPRAZOLE 20 MG CAPSULE DR 40 MG PO (06:30)
[2022-07-19] MEDS: ACETAMINOPHEN 325 MG TABLET PO (09:24)
[2022-07-19] MEDS: ARIPiprazole 10 MG TABLET PO (09:24)
[2022-07-19] MEDS: METFORMIN ER 500 MG PO ×2 (09:25→17:30)
[2022-07-19] MEDS: cephALEXin 500 MG CAPSULE 1000 MG PO ×2 (09:25→20:26)
[2022-07-19] MEDS: ESCITALOPRAM 10 MG TABLET 20 MG PO (09:25)
[2022-07-19] MEDS: CALCIUM CARBONATE 500 MG TABLET PO ×2 (09:25→20:26)
[2022-07-19] MEDS: SENNOSIDES/DOCUSATE TABLET 2 TAB PO ×2 (09:25→20:25)
[2022-07-19] MEDS: OXYCODONE 5 MG TABLET PO (09:33)
--- NOTE | 2022-07-19 16:11 | P.IMPN_ITS ---
Progress Note: A&P Assessment and plan (1) Osteomyelitis: Problem details: - s/p amputation R great toe on 07/08 - status post IV Rocephin vancomycin, Ancef for MSSA culture result. Transition to oral Keflex 07/15/2022, 1 g b.i.d. - 07/13/22 OR closure of surgical wounds. - Neg path for osteo from surgery. Status: Acute (2) Diabetes: Problem details: - A1c 11.2. - blood sugars are coming down. On 07/15/2022 metformin ER 500 mg b.i.d. with food, splitting his Levemir dose to 25 units b.i.d.. Follow this closely. - outpatient compliance is poor 2/2 comorbidities, in addition to housing and food insecurity Status: Chronic (3) Paranoid schizophrenia: Problem details: diagnosed as paranoid schizophrenic per chart review - Trey Kim is Psychiatrist - receives Abilify Q28 days, last administration 06/18/22 (next injection due 07/16), transition to oral Abilify 10 mg daily, 1st dose 07/15/22. We can discuss IM injections based on his discharge housing plan. 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 Asymptomatic. Will warrant infectious disease consultation to further assess and manage. Status: Acute Plan 1. Patient agreeable with above stated plans and recommendations. 2. Anticipate possible discharge to [facility] as early as tomorrow Time Spent With Patient Total time spent: 30 minutes Subjective Time Seen by Provider: 11:00 Date Seen: 07/19/22 Interval history: Daily Progress Note - Hospital Medicine Day #: 13 s/p Rocephin and Vanc 07/06-07/07 s/p ANCEF 07/08-07/15 Day 5 of Keflex 1 gram BID (started evening of 07/15) CC: Diabetic foot infection with associated osteomyelitis, history of TBI and poor self care, correction care All vital signs stable CBC is unremarkable Chemistries are essentially unremarkable. Sodium is a touch low 134. CRP has down trended nicely. Max was 16.2 and is down to 2.8 today. A1c 11.2 Blood sugars 203-241 He was on 38 units of Levemir nightly and is now on 30 units b.i.d. I also started him on oral metformin 500 mg b.i.d. with food I increased his sliding scale insulin 07/19/2022. Review of micro Right toe/foot Group B strep, pansensitive, and staph aureus, coagulase negative, growing from his wounds both on 07/06 and 07/08. Blood cultures were followed for 5 days and remained negative. Date of procedure: 07/13/22 1. Partial 5th ray resection right foot OVERNIGHT UPDATES FROM STAFF & MED, LAB, IMAGING UPDATES -Matt is agreeable and easy to care for. He states his foot pain has resolved. Wants to try to be little more physically active than he has been heretofore. Tolerating walking in the hallways. His vitals are stable. He transition oral Keflex on 07/15. Pathology reviewed: Right 5th metatarsal excision is negative for acute osteomyelitis. Wound cultures show essentially a pansensitive group B strep and coag-negative staph aureus. -he met with the [facility] admission nurse. Tentatively set for 07/20 for admission. They have asked us to TB screen him; QuantiFERON gold is now positive, drawn 07/16/2022. Does not have night sweats. Has not had any weight loss. Denies cough. Denies shortness of breath. Denies fevers, rigors, diaphoresis. Exam Narrative: Exam Narrative: Appears comfortable in no acute distress. Ambulating the hallways with walker. Lungs clear to auscultation. Heart tones with regular rhythm. No focal motor neurologic deficits. Const: Vital Signs, click to edit/add: Vital Signs - 24 hr 07/18/22 19:00 07/18/22 23:00 07/18/22 23:00 Temperature 98.6 F Pulse Rate [Pulse Oximeter] 64 64 Respiratory Rate 16 16 14 Blood Pressure [Le ft Arm] 147/84 H Blood Pressure [Ri ght Arm] Pulse Oximetry 95 Oxygen Delivery Me thod Room Air 07/19/22 03:00 07/19/22 07:00 07/19/22 07:00 Temperature 98.4 F 97.7 F Pulse Rate [Pulse Oximeter] 71 65 65 Respiratory Rate 16 18 18 Blood Pressure [Le ft Arm] 104/74 Blood Pressure [Ri ght Arm] 125/77 Pulse Oximetry 97 95 Oxygen Delivery Me thod Room Air Room Air 07/19/22 11:00 Temperature 98.6 F Pulse Rate [Pulse Oximeter] 95 Respiratory Rate 18 Blood Pressure [Le ft Arm] Blood Pressure [Ri ght Arm] 118/72 Pulse Oximetry 95 Oxygen Delivery Me thod Room Air Documenting provider has reviewed patient's vital signs: yes Labs Labs: Laboratory Results - last 24 hr 07/16/22 12:35 TB Test (QFT) Gold Plus Positive
--- NOTE | 2022-07-19 19:13 | PC.NURSE ---
[id number]: Patient up to chair for meals. Patient c/o increase in talking to himself and request ambilify injection. Nursing informed provider and requested for provider to assess patient. Patient pain controlled with prn tylenol and oxycodone. Patient uses call light appropriately and able to voice concerns. Patient with good appetite and required insulin coverage for all 3 meals today.
--- NOTE | 2022-07-19 19:49 | PM.EN ---
Chart Event Note Date Seen: 07/19/22 Chart Event Note: Matt asked to see the hospitalist this evening to discuss increasing his Abilify. He has been on 10 mg daily for the past 4 days, continues to hear voices and believes he would benefit from an increased dose of Abilify. We will increase to 15 mg after risk benefit discussion.
[2022-07-19] MEDS: MELATONIN 3 MG TABLET PO (20:25)
[2022-07-19] MEDS: PRAZOSIN HCL 1 MG CAPSULE PO (20:27)
[2022-07-19] MEDS: ENOXAPARIN 40 MG/0.4 ML INJ SUBCUT (20:27)
[2022-07-20 03:00] VITALS: RESP 18
[2022-07-20] MEDS: OMEPRAZOLE 20 MG CAPSULE DR 40 MG PO (06:40)
[2022-07-20 07:00] VITALS: BP 146/99; PULSE 98; RESP 18; TEMP 36.7; O2SAT 98
--- NOTE | 2022-07-20 07:19 | PC.NURSE ---
END OF SHIFT NOTE: PT PLEASANT AND COOPERATIVE. DENIES CP, SOB, N/V. AMBULATES INDEPENDENTLY WITH WALKER IN ROOM. VSS ON RA; AFEBRILE. PT USES URINAL NOC. HX OF TBI. SOFT SPOKEN. CALL LIGHT WITHIN PT?S REACH. PLAN TO D/C TO [facility] 07/20.?
[2022-07-20] MEDS: ACETAMINOPHEN 325 MG TABLET PO (07:41)
[2022-07-20] MEDS: OXYCODONE 5 MG TABLET PO (07:42)
[2022-07-20] MEDS: METFORMIN ER 500 MG PO (07:42)
[2022-07-20] MEDS: ARIPiprazole 10 MG TABLET 15 MG PO (08:43)
[2022-07-20] MEDS: CALCIUM CARBONATE 500 MG TABLET PO (08:43)
[2022-07-20] MEDS: cephALEXin 500 MG CAPSULE 1000 MG PO (08:43)
[2022-07-20] MEDS: SENNOSIDES/DOCUSATE TABLET 2 TAB PO (08:43)
[2022-07-20] MEDS: ESCITALOPRAM 10 MG TABLET 20 MG PO (08:44)
--- NOTE | 2022-07-20 10:07 | PC.SOCIAL ---
Spoke with Alma, Full Time Paramedic at [facility]. They need to see negative mantoux proof for pt., wound care and medication orders sent to [facility] in [place]. If pt. needs wound care supplies this needs to be sent to the [facility] pharmacy as well. All diabetic supply orders needs to be sent to [facility] here in [place]. Once [facility] confirms they can get all of pt.'s medications delivered today from [facility] they can accept pt. today. Transport will likely be after lunch.
[2022-07-20 11:00] VITALS: BP 108/68; PULSE 81; RESP 18; TEMP 36.2; O2SAT 91
[2022-07-20 14:45] VITALS: BP 108/68; PULSE 81; RESP 18; TEMP 36.2
--- NOTE | 2022-07-20 15:13 | PC.NURSE ---
Pt is alert and oriented, pleasant and compliant. Vitals stable, on RA. Stated 8/10 pain to R foot this AM, PRN Tylenol and Oxycodone admin, pt stated effectiveness. Pt up amb in hallway and room independently, staff reminding pt to bear weight on heels per order. Dressing change done this AM, pt tolerated well. Pt eating 100% of ordered meals. SSI admin per orders/protocol for BS of 168 then 199 this afternoon. Pt had BM and been voiding without issue this shift. IV removed on a prior shift. Pt gathered his belongings, and his valuables returned to him at time of d/c, debit card and money. Director Of Guidance called and gave report to SABINE Hartman at [facility] aroun 1030am this AM, questions answered. Pt d/c at 1500 via WC, p/u at ED entrance by [facility] power screwdriver operator.
--- NOTE | 2022-07-20 16:09 | P.DS_ITS ---
DS: Providers Provider Time Seen by Provider: 10:00 Date Seen: 07/20/22 Date of admission: 07/07/22 13:58 Primary care physician: Not a Local Provider Admitting Clinician: Douglas Marrero MD Consults: 07/07/22 04:12 Consult to Occupational Therapy [CONS] Routine Comment: Reason(s) for OT Consult:: Difficulty Managing ADLs Any Restrictions?:: No Restrictions Consult to Physical Therapy [CONS] Routine Comment: Reason(s) for PT Consult:: Wound Care Any Restrictions?:: No Restrictions 07/07/22 07:37 Consult to Assembler Production Line [CONS] Routine Comment: Reason for Consult:: Discharge Planning Needs Attending Physician on discharge: Kwasi Strange MD Date of Discharge: 07/20/22 DS: Diagnosis Discharge Diagnosis (1) Infection of great toe: Status: Acute (2) Osteomyelitis: Status: Acute Problem details: - s/p amputation R great toe on 07/08 - status post IV Rocephin vancomycin, Ancef for MSSA culture result. Transition to oral Keflex 07/15/2022, 1 g b.i.d. - 07/13/22 OR closure of surgical wounds. - Neg path for osteo from surgery. (3) Diabetes: Status: Chronic Problem details: - A1c 11.2. - blood sugars are coming down. On 07/15/2022 metformin ER 500 mg b.i.d. with food, splitting his Levemir dose to 25 units b.i.d.. Follow this closely. - outpatient compliance is poor 2/2 comorbidities, in addition to housing and food insecurity (4) Paranoid schizophrenia: Status: Acute Problem details: diagnosed as paranoid schizophrenic per chart review - Trey Kim is Psychiatrist - receives Abilify Q28 days, last administration 06/18/22 (next injection due 07/16), transition to oral Abilify 10 mg daily, 1st dose 07/15/22. We can discuss IM injections based on his discharge housing plan. 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 Asymptomatic. Will warrant infectious disease consultation to further assess and manage. DS: Summary Hospital Course Hospital Course: Matt Low is a 42 year old diabetic male admitted to the hospital last night for persistent right foot wound with ulceration. Patient is a poor historian, majority of history gleaned from chart review. Matt was initially seen in our emergency room on 06/26 for relatively new right foot ulceration.? He was given IM Rocephin and oral Levaquin, with instructions to follow-up with Podiatry as an outpatient. He was not compliant with medications nor follow-up appointment, re-presented to the emergency yesterday for worsening symptoms.? No fevers, no known trauma. ED Course and Findings: ?- WBC 15, CRP 8 ?- XR exhibited findings concerning for osteomyelitis Matt was started on vancomycin and ceftriaxone, admitted to the hospital, seen by Dr. Hayden of Podiatry this morning, who recommends MRI today to determine extent of disease prior to surgical management. MR scan of the right foot on 07/07/2022 demonstrated the followin. Incomplete exam. Completed sequences are compromised by motion artifact. 2. Medial great toe wound with surrounding edema and/or cellulitis. Erosion of the medial-plantar cortex of the 1st proximal phalanx underlying the wound, better seen on recent radiographs. Marrow edema in the 1st proximal phalanx. Findings are suspicious for osteomyelitis although osteomyelitis is difficult to confirm with high specificity due to the incomplete and motion compromised exam. Marrow edema in the 1st distal phalanx without osteomyelitis. 3. Lateral forefoot wound with surrounding edema and/or cellulitis. Marrow edema in the 5th metatarsal head and 5th proximal phalanx without osteomyelitis. 4. No fluid collection. 5. Muscle edema from denervation or myositis. Patient underwent surgical procedure with software test automation engineer, Dr. Hayden, on 07/08/2022: Post-op diagnosis: 1.? Osteomyelitis right great toe 2.? Diabetic ulcer with abscess right lateral foot Type of Procedure: 1.? Amputation of right great toe 2.? I and D right lateral foot Operative wound cultures eventually grew out methicillin sensitive Staph coccus aureus and group B strep. Antibiotics were adjusted accordingly. Eventually was switched to oral cephalexin as specified below. The area along the right lateral foot was not improving and thus he was brought back to the operating room on 07/13/2022: Post-op diagnosis: 1.? Diabetic ulceration possible underlying osteomyelitis right foot Type of Procedure: 1.? Partial 5th ray resection right foot Postsurgical wound cares continued while in hospital. Eventually he was on a regimen that consisted of Betadine-soaked 4x4s covered with sterile dressing and Kerlix and Refugio wrap, with dressing changes every 3 days. He had surgical shoes and was weight-bearing as tolerated to the right heel. Eventually we were able to establish a safe discharge disposition plan for him. During his hospitalization we switched him from the once monthly Abilify injection which he had been receiving in the outpatient setting to daily oral Abilify 10 mg once daily. In time we increased the dose to Abilify 15 mg once daily, due to ongoing auditory hallucinations. This will require ongoing attention, monitoring, and management. Insulin doses were adjusted throughout the course hospitalization. This will require ongoing adjustments after he leaves. Status at Discharge Functional status at discharge: uses cane/walker Overall status at discharge: patient is not back to baseline Time Spent with Patient Time attestation: Total time spent providing and/or coordinating discharge services: Time spent: Greater than 30 minutes Exam Narrative: Exam Narrative: Appears comfortable. Alert, oriented to self, place, time, situation. Friendly cooperative. Lungs clear to auscultation. Heart tones with regular rhythm. Still needs reminders on how to use his walker when ambulating. No focal motor neurologic deficits. Const: Vital Signs, click to edit/add: Vital Signs - 24 hr 07/19/22 19:00 07/19/22 23:00 07/19/22 20:00 Temperature 98.0 F Pulse Rate Pulse Rate [Pulse Oximeter] 70 70 Respiratory Rate 16 16 16 Blood Pressure Blood Pressure [Le ft Arm] 121/79 Pulse Oximetry 96 Oxygen Delivery Me thod Room Air Room Air 07/20/22 03:00 07/20/22 07:00 07/20/22 07:00 Temperature 98.0 F Pulse Rate Pulse Rate [Pulse Oximeter] 98 98 Respiratory Rate 18 18 18 Blood Pressure Blood Pressure [Le ft Arm] 146/99 H Pulse Oximetry 98 Oxygen Delivery Me thod Room Air Room Air 07/20/22 11:00 07/20/22 14:45 Temperature 97.1 F L 97.1 F L Pulse Rate 81 Pulse Rate [Pulse Oximeter] 81 Respiratory Rate 18 18 Blood Pressure 108/68 Blood Pressure [Le ft Arm] 108/68 Pulse Oximetry 91 Oxygen Delivery Me thod Room Air Documenting provider has reviewed patient's vital signs: yes Discharge Plan Discharge Disposition: Xfer SNF Date of Admission: 07/07/22 13:58 Attending Provider on Discharge: Kwasi Strange Consulting Providers: Vini Hayden Primary Care Provider: Provider,Not a Local Condition: Improved Anticipated Discharge Date/Time: 07/20/22 14:00 Discharge Medications: New cephalexin 500 mg Capsule 1,000 mg PO BID Qty: 28 0RF metformin 500 mg Tablet Extended Release 24 Hr 500 mg PO BIDWM Qty: 30 0RF aripiprazole 10 mg Tablet 15 mg PO DAILY 30 Days Qty: 45 1RF insulin glargine [Lantus Solostar U-100 Insulin] 100 unit/mL (3 mL) insulin pen 30 unit subcut BID 30 Days Qty: 18 2RF insulin aspart U-100 [Novolog FlexPen U-100 Insulin] 100 unit/mL (3 mL) insulin pen 10 unit subcut TID 30 Days Qty: 9 2RF Rx Instructions: TID with meals acetaminophen 325 mg tablet 650 mg PO QID PRNQty: 100 0RF oxycodone 5 mg tablet 5 mg PO Q8H PRN (Reason: pain) Qty: 14 0RF Continued (DME) blood-glucose meter [Accu-Chek Guide Me Glucose Mtr] Misc MISCELLANEOUS trazodone 50 mg tablet 50 mg PO HS PRN prazosin 1 mg capsule 1 mg PO HS (DME) Accu-Chek Guide test strips Strip MISCELLANEOUS (DME) lancets [Accu-Chek Softclix Lancets] Misc MISCELLANEOUS loratadine 10 mg tablet 10 mg PO DAILY (DME) pen needle, diabetic [BD Ultra-Fine Short Pen Needle] 31 gauge x 5/16 needle MISCELLANEOUS escitalopram oxalate 20 mg tablet 20 mg PO DAILY rosuvastatin 40 mg tablet 40 mg PO HS melatonin 3 mg capsule 3 mg PO HS Discontinued insulin aspart U-100 [Novolog FlexPen U-100 Insulin] 100 unit/mL (3 mL) insulin pen 13 unit SUBCUT TIDWMEAL insulin glargine [Lantus Solostar U-100 Insulin] 100 unit/mL (3 mL) insulin pen 38 unit SUBCUT HS Abilify Maintena 400 mg suspension,extended rel recon 400 mg IM Q28D Discharge Orders: Discharge Order (Routine); Ordered 07/20/22 Ordered By: Kwasi Strange Activity Level: Toe Touch Wt Bearing Activity Detail: weight bearing as tolerated to right heel with walker, to avid pressure to right forefoot Discharge Diet: Diabetic Follow Up Appointments: Provider,Not a Local [Primary Care Provider] - (Needs to establish care with a local clinician in the next 5-10 days if possible, for on-going management of diabetes, schizophrenia, etc.) Vini Hayden, DPMorelia [Staff Physician] - 07/22/22 10:00 am (post operative assessment in 3 days) Wound Care: 1. Dressing change to right foot surgical wound 2 times weekly, more frequent if needed; 2. remove dressing, gently wash foot with washcloth, soap and and water, then rinse, and gently pat dry; 3. apply betadine soaked 4x4 gauze to right foot surgical incisional wound and then cover with sterile dressing; 4. apply extra dadding to dorsum of right foot; 5. use surgical shoe on right foot any time he is weight bearing; 6. weight bearing as tolerated to right heel with use of walker, to avoid direct pressure to right forefoot. Admit to: [facility] Discharge Potential: Poor Length of Stay: >90 days Can use facility standing orders?: Yes Code Status: Full Code Orders are good >30 days: Yes Signature: Kwasi Strange
== END 2022-07-20 15:00 | DRG 464 ==
LOC: ED 20:22 → MEDSURG 21:36
PROVIDERS: Family Medicine; Hospitalist; Podiatrist; Admitting Provider Family Medicine; Emergency Provider Family Medicine; Visit Provider Family Medicine
PROC: 0Y6P0Z0 Detachment at Right 1st Toe, Complete, Open Approach (ICD-10-PCS; principal; 2022-07-08 16:30)
PROC: 0Y6M0ZF Detachment at Right Foot, Partial 5th Ray, Open Approach (ICD-10-PCS; principal; 2022-07-13 11:00)
DX: M86.171 Other acute osteomyelitis, right ankle and foot (principal); F20.0 Paranoid schizophrenia; L02.611 Cutaneous abscess of right foot; E11.69 Type 2 diabetes mellitus with other specified complication; L97.514 Non-pressure chronic ulcer of other part of right foot with necrosis of bone; L03.031 Cellulitis of right toe; B95.61 Methicillin susceptible Staphylococcus aureus infection as the cause of diseases classified elsewhere; E11.621 Type 2 diabetes mellitus with foot ulcer; E11.319 Type 2 diabetes mellitus with unspecified diabetic retinopathy without macular edema; E11.65 Type 2 diabetes mellitus with hyperglycemia; L97.512 Non-pressure chronic ulcer of other part of right foot with fat layer exposed; Z79.4 Long term (current) use of insulin; E87.6 Hypokalemia; E83.51 Hypocalcemia; Z22.7 Latent tuberculosis; F17.210 Nicotine dependence, cigarettes, uncomplicated; Z87.820 Personal history of traumatic brain injury
CPT/HCPCS: 11042; 1480; 36415; 71045; 73620; 73660; 73718; 76000; 80048; 80053; 80202; 82330; 82962; 83036; 83605; 83735; 84443; 85025; 85027; 86140; 86480; 87040; 87045; 87046; 87070; 87075; 87076; 87181; 87186; 87205; 87338; 87427; 87635; 88304; 88305; 88311; 97116; 97162; 97165; 97530; 97535; 99140; 99284; 99285; A9270; G0378; J0610; J0690; J0696; J1100; J1650; J1885; J2060; J2250; J2270; J2405; J2704; J3010; J3370; J3480; J3490; J7030; J7050; J7120

== ENCOUNTER 2022-10-30 09:54 | Outpatient (RCR) | payer MEDICARE, MEDICAID, SELFPAY ==
[2022-09-26] MEDS: DAPTOmycin 50 MG/ML inj 700 MG IVP (10:13)
[2022-09-26] MEDS: SODIUM CHLORIDE 0.9 % (FLUSH) 10 ML SYRINGE IVF ×2 (10:13→10:28)
[2022-09-26 10:37] VITALS: BP 110/67; PULSE 79; RESP 16; O2SAT 96
--- NOTE | 2022-09-26 11:26 | PC.NURSE ---
Pt calm and cooperative during shift. Pt's antibiotic given and dressing changed. PIIC patent and dressing intact. Concerns with fisure on right foot. There was serosanguineous fluid from fissure on right foot. Dr. Peters updated. Per direction from Dr. Peters dressing changes starting tomorrow with also included cleansing crack to outer right foot with betadine during each dressing change. [facility] was called to inform per Dr. Peters that Pt needs to decrease amount of walking he is doing and needs to heal walk.
[2022-09-27 10:08] VITALS: BP 115/73; PULSE 69; RESP 16; TEMP 36.3; O2SAT 96
[2022-09-27] MEDS: DAPTOmycin 50 MG/ML inj 700 MG IVP (10:25)
[2022-09-27] MEDS: SODIUM CHLORIDE 0.9 % (FLUSH) 10 ML SYRINGE IVF (10:25)
--- NOTE | 2022-09-27 11:57 | PC.NURSE ---
Outpatient-- VSS and pain appears well managed. Pt given Daptomycin IVP and tolerated well. Small fissure beneath original wound cleaned and Betadine applied. Dressing changed. 1x 4x4, wrapped in Kerlix, secured with paper tape, wrapped with an MERCEDES bandage and covered with surgical stockinette. Pt reminded to ambulate only short distances and discharged back to [facility] with [facility] staff via wheelchair.
[2022-09-28] MEDS: DAPTOmycin 50 MG/ML inj 700 MG IVP (09:38)
[2022-09-28] MEDS: SODIUM CHLORIDE 0.9 % (FLUSH) 10 ML SYRINGE IVF (09:38)
[2022-09-28 09:39] VITALS: BP 114/87; PULSE 62; RESP 16; TEMP 36.4; O2SAT 97
--- NOTE | 2022-09-28 10:11 | PC.NURSE ---
Outpatient-- VSS. Pt has no complaints of pain.? Pt given Daptomycin IVP tolerated well. A small fissure beneath the original wound was cleaned and Betadine applied.? Scant serosanguineous drainage present in area of fissure. Dressing changed.?Wrapped in Kerlix, secured with paper tape, wrapped with an MERCEDES bandage and covered with surgical stockinette.? Pt reminded to ambulate only short distances and to heel walk while doing so. Dr. Peters will see Pt on Wednesday.?Pt picked up by [facility] staff.?
[2022-09-29 10:05] VITALS: BP 117/77; PULSE 67; RESP 18; TEMP 36.6; O2SAT 96
[2022-09-29] MEDS: DAPTOmycin 50 MG/ML inj 700 MG IVP (10:07)
[2022-09-29] MEDS: SODIUM CHLORIDE 0.9 % (FLUSH) 10 ML SYRINGE IVF (10:07)
[2022-09-29 10:29] VITALS: BP 121/83; PULSE 69; RESP 18; TEMP 36.6; O2SAT 95
--- NOTE | 2022-09-29 10:39 | PC.NURSE ---
Outpatient infusion/Dressing Change: Patient arrived to the floor at 1003. Antibiotic IV push given, patient tolerated well. Dressing change performed, betadine, 4x4 gauze, kerlix, gabriella wrap, and stockinette. Patient denied pain. Vitals performed x2, vitally stable. Patient left the floor by wheelchair to meet ride at 1033.
[2022-09-30] MEDS: DAPTOmycin 50 MG/ML inj 700 MG IVP (10:13)
[2022-09-30] MEDS: SODIUM CHLORIDE 0.9 % (FLUSH) 10 ML SYRINGE IVF (10:14)
[2022-09-30 10:15] VITALS: BP 143/87; PULSE 63; RESP 18; TEMP 36.6; O2SAT 97
--- NOTE | 2022-09-30 10:35 | PC.NURSE ---
Pt arrived for outpatient antibiotics and dressing change. No NV present after antibotic adminstration. PICC line dressing dry and intact. PIIC patent. Pt?s dressing changed and redressed. Fissure on top side right foot cleansed with betadine. Pt will be going to [facility] to see Dr. Peters once done on medical surgical unit today. The sba underwriter called [facility] to inform them of Pt need to go to [facility]. Pt informed as well. The sba underwriter spoke with [facility] street flusher driver about appointment as well at strip [facility]. Pt was picked up at ED entrance at 1030am.?
[2022-10-01] MEDS: DAPTOmycin 50 MG/ML inj 700 MG IVP (10:30)
[2022-10-01] MEDS: SODIUM CHLORIDE 0.9 % (FLUSH) 10 ML SYRINGE IVF (10:30)
[2022-10-01 11:00] VITALS: BP 135/85; PULSE 76; RESP 18; TEMP 36.6; O2SAT 98
--- NOTE | 2022-10-01 15:45 | PC.NURSE ---
shift note: pt tolerated drsg change to rt foot. stitches intact. No drainage to original drsgs. area cleansed with sterile saline and betadine applied around outer edges of stitches. wound covered by 4x4 then wrapped with kerlex and gabriella wrap. picc line drsg intact. picc patent with no resistance prior to antibiotic infusion.
[2022-10-02 10:00] VITALS: BP 160/91; PULSE 78; RESP 16; TEMP 36.8; O2SAT 98
[2022-10-02] MEDS: DAPTOmycin 50 MG/ML inj 700 MG IVP (10:03)
[2022-10-02] MEDS: SODIUM CHLORIDE 0.9 % (FLUSH) 10 ML SYRINGE IVF (10:04)
--- NOTE | 2022-10-02 11:35 | PC.NURSE ---
shfit note: removed old drsg to rt foot. stitches intact. wiped area around stitches with sterile saline then used betadine swab around outer edges of stitches. Rewrapped foot with 4x4,kerlex,acewrap, stockinette. Changed PICC drsg using sterile technique. PICC site intact w/o redness. PICC hub changed. PICC flushed w/o resistance.
[2022-10-03 12:10] VITALS: BP 121/78; PULSE 68; RESP 18; TEMP 36.9; O2SAT 95
[2022-10-03] MEDS: DAPTOmycin 50 MG/ML inj 700 MG IVP (12:12)
[2022-10-03] MEDS: SODIUM CHLORIDE 0.9 % (FLUSH) 10 ML SYRINGE IVF (12:15)
[2022-10-04] MEDS: DAPTOmycin 50 MG/ML inj 700 MG IVP (10:21)
[2022-10-04] MEDS: SODIUM CHLORIDE 0.9 % (FLUSH) 10 ML SYRINGE IVF ×2 (10:22)
[2022-10-04 12:40] VITALS: BP 147/87; PULSE 62; RESP 18; TEMP 37; O2SAT 96
[2022-10-05 10:00] VITALS: BP 122/65; PULSE 59; RESP 18; TEMP 36.7; O2SAT 97
[2022-10-05] MEDS: DAPTOmycin 50 MG/ML inj 700 MG IVP (10:15)
[2022-10-05] MEDS: SODIUM CHLORIDE 0.9 % (FLUSH) 10 ML SYRINGE IVF (10:34)
[2022-10-06] MEDS: SODIUM CHLORIDE 0.9 % (FLUSH) 10 ML SYRINGE IVF (10:43)
[2022-10-06] MEDS: DAPTOmycin 50 MG/ML inj 700 MG IVP (10:43)
[2022-10-06 10:46] VITALS: BP 161/95; PULSE 63; RESP 16; TEMP 36.6; O2SAT 96
--- NOTE | 2022-10-06 14:01 | PC.NURSE ---
shift note: pt vss stable. pt afeb. pt appears sleepy today on OP visit. pt denies pain. drsg to rt foot performed w/o difficulty. stitches intact to rt foot. wound cleansed with sterile water then dried. betadine applied around stitches. 4x4's placed over wound then foot wrapped with kerlex & gabriella. Picc flushed w/o resistance and blood return on aspiration. No difficulty with IV infusion.
[2022-10-07 10:11] VITALS: BP 107/69; PULSE 69; RESP 14; TEMP 36.8; O2SAT 97
[2022-10-07] MEDS: SODIUM CHLORIDE 0.9 % (FLUSH) 10 ML SYRINGE IVF (10:13)
[2022-10-07] MEDS: DAPTOmycin 50 MG/ML inj 700 MG IVP (10:14)
[2022-10-07 10:25] VITALS: BP 104/69; PULSE 69; RESP 14; TEMP 36.8; O2SAT 97
--- NOTE | 2022-10-07 10:33 | PC.NURSE ---
Outpatient: Patient vitally stable. Tolerated IV push and dressing change. Dressing change performed at ordered. Patient left the floor at 1030 by wheelchair to wait for ride. PICC line intact and patent.
[2022-10-08 10:00] VITALS: BP 156/93; PULSE 64; RESP 16; TEMP 36.9; O2SAT 97
[2022-10-08] MEDS: DAPTOmycin 50 MG/ML inj 700 MG IVP (10:25)
[2022-10-08] MEDS: SODIUM CHLORIDE 0.9 % (FLUSH) 10 ML SYRINGE IVF (10:26)
[2022-10-09] MEDS: DAPTOmycin 50 MG/ML inj 700 MG IVP (10:15)
[2022-10-09] MEDS: SODIUM CHLORIDE 0.9 % (FLUSH) 10 ML SYRINGE IVF (10:16)
[2022-10-09 10:34] VITALS: BP 125/79; PULSE 60; RESP 16; TEMP 36.5; O2SAT 95
[2022-10-10] MEDS: DAPTOmycin 50 MG/ML inj 700 MG IVP (10:42)
[2022-10-10] MEDS: SODIUM CHLORIDE 0.9 % (FLUSH) 10 ML SYRINGE IVF ×2 (10:42→10:51)
[2022-10-10 11:00] VITALS: BP 103/65; PULSE 68; RESP 16; TEMP 36.6; O2SAT 97
[2022-10-10 11:38] VITALS: BP 137/84; PULSE 63; RESP 16; TEMP 36.9; O2SAT 95
--- NOTE | 2022-10-10 11:42 | PC.NURSE ---
Pt arrived for infusion via [facility] transport. VS WNL and LS COA. Footcare provided to right foot. Intact areas and between 2 remaining toes cleansed with warm, soapy water. Sutures to right foot dabbed with saline soaked 4x4's and fissure/cracked area adjacent to surgical wound cleansed with betadine swabs. Sutures and adjacent fissure covered with dry 4x4 and wrapped with kerlix. PICC to right upper arm flushed and antibiotic given IVP given without difficulty. Pt was wheeled via wheelchair to await his ride home to [facility]. Dressing change and antibiotic therapy tolerated well.
[2022-10-11] MEDS: DAPTOmycin 50 MG/ML inj 700 MG IVP (10:26)
[2022-10-11] MEDS: SODIUM CHLORIDE 0.9 % (FLUSH) 10 ML SYRINGE IVF (10:26)
[2022-10-11 10:37] VITALS: BP 118/73; PULSE 63; RESP 16; TEMP 37; O2SAT 95
[2022-10-12 10:30] VITALS: BP 137/84; PULSE 74; RESP 16; TEMP 36.9; O2SAT 94
[2022-10-12] MEDS: DAPTOmycin 50 MG/ML inj 700 MG IVP (10:32)
[2022-10-12] MEDS: SODIUM CHLORIDE 0.9 % (FLUSH) 10 ML SYRINGE IVF (10:32)
[2022-10-13 10:18] VITALS: BP 102/68; PULSE 68; RESP 20; TEMP 36.6; O2SAT 95
[2022-10-13] MEDS: SODIUM CHLORIDE 0.9 % (FLUSH) 10 ML SYRINGE IVF (10:21)
[2022-10-13] MEDS: DAPTOmycin 50 MG/ML inj 700 MG IVP (10:21)
--- NOTE | 2022-10-13 10:28 | PC.NURSE ---
Patient is here today for his outpatient dressing change and his antibiotic. Dressing change completed wound is dry and no redness noted. Re-wrapped with 4x4 and kerlix then gabriella wrap and tubi merchandising execution associate applied. Antibiotic pushed over 2 minutes patient tolerated with no complaints of nausea or vomiting. He was taken by wheel chair to the emergency room exit to meet his ride.
[2022-10-14 10:04] VITALS: BP 131/78; PULSE 69; RESP 16; TEMP 36.9; O2SAT 95
[2022-10-14] MEDS: DAPTOmycin 50 MG/ML inj 700 MG IVP (10:12)
[2022-10-14] MEDS: SODIUM CHLORIDE 0.9 % (FLUSH) 10 ML SYRINGE IVF (10:12)
--- NOTE | 2022-10-14 10:19 | PC.NURSE ---
Pt outpatient dressing change and his antibiotic.? Dressing change done.? Re-wrapped with 4x4 and kerlix then gabriella wrap and tubi body team member applied. picc is patent IV? Antibiotic pt tolerated with no problems ? He was taken by wheel chair to the emergency room exit to meet his ride.
[2022-10-14 22:04] VITALS: BP 133/81; PULSE 69; RESP 18; TEMP 36.9; O2SAT 97
[2022-10-15 10:00] VITALS: BP 134/77; PULSE 72; RESP 14; TEMP 36.4; O2SAT 99
[2022-10-15] MEDS: DAPTOmycin 50 MG/ML inj 700 MG IVP (10:15)
--- NOTE | 2022-10-15 11:16 | PC.NURSE ---
Outpatient Care Notes: 1000 Pt wheeled into room, independent transfer to bed. Alert and oriented. No c/o pain or SOB. Flushes and ABX given per eMAR. PICC patent and asymptomatic. Dressing intact. Dressing change to R foot performed. Sutures in place, no SS of infection. Fissure R lateral R football coach to touch. 1-2/10 pain. No SS of infection, no drainage. R foot cleaned with warm soapy water and dried. Rinsed with sterile water and dried. Iodine swabs applied to both wounds, covered with non-stick gauze pad and foot wrapped with MERCEDES wrap. Assess L foot for wounds, bandage to 4th toe in place. Skin pulling away from fifth toe nail bed. Pt states they visited Dr. Peters yesterday. Towel Rolling Machine Operator questioned pt about looking at feet everyday with mirror, pt stated they forgot until investigative writer just mentioned it. Encouraged to check feet morning and night. Towel Rolling Machine Operator asked about smoking cessation, pt states he is struggling with quitting and in fact was chain smoking this morning to help wake up. Towel Rolling Machine Operator highly encouraged pt to keep trying to quit.
[2022-10-16] MEDS: DAPTOmycin 50 MG/ML inj 700 MG IVP (10:15)
[2022-10-16] MEDS: SODIUM CHLORIDE 0.9 % (FLUSH) 10 ML SYRINGE IVF (10:15)
[2022-10-17 11:15] VITALS: BP 148/82; PULSE 60; RESP 18; TEMP 36.6; O2SAT 98
[2022-10-17] MEDS: DAPTOmycin 50 MG/ML inj 700 MG IVP (15:26)
[2022-10-17] MEDS: SODIUM CHLORIDE 0.9 % (FLUSH) 10 ML SYRINGE IVF (15:26)
--- NOTE | 2022-10-17 15:30 | PC.NURSE ---
shift note: pt to room with [facility] staff. pt tolerated drsg change to bilat feet. no drainage from rt lateral foot. stitches intact. lt foot with small & 4th toe dk with no drainage. both feet wrapped with kerlex then sock covered area, PICC line patent. No resistance with flush. site c/d/i
[2022-10-18] MEDS: DAPTOmycin 50 MG/ML inj 700 MG IVP (10:10)
[2022-10-18] MEDS: SODIUM CHLORIDE 0.9 % (FLUSH) 10 ML SYRINGE IVF (10:10)
--- NOTE | 2022-10-18 10:44 | PC.NURSE ---
Alert and oriented. vs wnl. Denies N/V/D. denies elevated temp. minimal discomfort of both feet. tolerable. rt foot dressing change. stitches and foot dry and intact, no reddness or drainage noted. enc Matt to check with MD tiwari when stitches to be taken out. Lt foot. no order to do dressing change. pt reequested I look at it. Old Bandaid on lt 4th toe removed and replaced by sl. wound care eugenio on a 4x4. blister atempting to heal. no reddness or drainage. enc Matt to change with a bandaid daily.
[2022-10-18 11:00] VITALS: BP 113/68; PULSE 68; RESP 15; TEMP 36.1; O2SAT 95
[2022-10-19] MEDS: DAPTOmycin 50 MG/ML inj 700 MG IVP (10:21)
[2022-10-19] MEDS: SODIUM CHLORIDE 0.9 % (FLUSH) 10 ML SYRINGE IVF (10:24)
--- NOTE | 2022-10-19 11:28 | PC.NURSE ---
shift note: pt to room at 1000. pt tolerated drsg change to bilat feet. no drainage from right lateral foot. stitches C/D/ intact. left foot no drainage noted. both feet wrapped with kerlex then sock covered area, PICC line patent, Meds administered and was flushed with no resistance. site c/d/i
[2022-10-20 10:07] VITALS: BP 107/63; PULSE 85; RESP 18; TEMP 36.6; O2SAT 94
[2022-10-20] MEDS: SODIUM CHLORIDE 0.9 % (FLUSH) 10 ML SYRINGE IVF (10:11)
[2022-10-20] MEDS: DAPTOmycin 50 MG/ML inj 700 MG IVP (10:11)
--- NOTE | 2022-10-20 12:10 | PC.NURSE ---
Outpatient-- Pleasant and cooperative patient. VSS and pt is afebrile. SPO2 >90% on RA. He denied any pain. Dressing change was completed and pt was given antibiotic with no difficulties. Discharged back to [facility] with [facility] staff.
[2022-10-21 10:01] VITALS: BP 130/80; PULSE 74; RESP 18; TEMP 36.7; O2SAT 96
[2022-10-21] MEDS: SODIUM CHLORIDE 0.9 % (FLUSH) 10 ML SYRINGE IVF ×2 (10:03→10:08)
[2022-10-21] MEDS: DAPTOmycin 50 MG/ML inj 700 MG IVP (10:04)
[2022-10-22 10:09] VITALS: BP 101/53; PULSE 65; RESP 16; TEMP 36.6; O2SAT 96
[2022-10-22] MEDS: SODIUM CHLORIDE 0.9 % (FLUSH) 10 ML SYRINGE IVF ×2 (10:13→10:15)
[2022-10-22] MEDS: DAPTOmycin 50 MG/ML inj 700 MG IVP (10:13)
--- NOTE | 2022-10-22 10:42 | PC.NURSE ---
Pt's IVP antibiotic given via PIIC line. Tolerated well no N/V. VSS. Pt?s dressing changed and wound care complete per doctor's order.?
[2022-10-23 10:08] VITALS: BP 113/75; PULSE 66; RESP 16; TEMP 36.9; O2SAT 94
[2022-10-23] MEDS: SODIUM CHLORIDE 0.9 % (FLUSH) 10 ML SYRINGE IVF (10:11)
[2022-10-23] MEDS: DAPTOmycin 50 MG/ML inj 700 MG IVP (10:11)
--- NOTE | 2022-10-23 10:59 | PC.NURSE ---
Outpatient: Patient vitally stable. Medication administered, tolerated well. Wound dressing change performed, and PICC line dressing change performed. PICC line patent and intact. Wound C/D/I.
[2022-10-24 10:09] VITALS: BP 128/79; PULSE 67; RESP 16; TEMP 36.7; O2SAT 95
[2022-10-24] MEDS: DAPTOmycin 50 MG/ML inj 700 MG IVP (10:11)
[2022-10-24] MEDS: SODIUM CHLORIDE 0.9 % (FLUSH) 10 ML SYRINGE IVF (10:11)
[2022-10-25] MEDS: SODIUM CHLORIDE 0.9 % (FLUSH) 10 ML SYRINGE IVF (10:33)
[2022-10-25] MEDS: DAPTOmycin 50 MG/ML inj 700 MG IVP (10:33)
[2022-10-25 11:30] VITALS: BP 107/77; PULSE 73; RESP 18; TEMP 36.3; O2SAT 97
--- NOTE | 2022-10-25 12:21 | PC.NURSE ---
Pt arrived at 1000 for IV abx and dressing change. Ambulated from wheelchair to chair to bed independently. Vitals stable and pt c/o no pain. Completed IV push through PICC line. No issues- patent, no nausea. Site CDI and dressing dated 10/23. Redressed pt's right foot with gauze, kerlix, MERCEDES, and sleeve. Dried blood to healing incision. Pt asked if he should be washing his other foot. Education provided on keeping wounds clean and wearing proper foot attire. Dry crusted wound on 3rd metatarsal of L foot also cleansed. Pt napped until transfer around 1130. Facility called several times but was having phone issues. Left with 2 orthopedic shoes.
[2022-10-26 10:23] VITALS: BP 119/80; PULSE 67; RESP 18; TEMP 36.9; O2SAT 94
[2022-10-26] MEDS: DAPTOmycin 50 MG/ML inj 700 MG IVP (10:25)
[2022-10-26] MEDS: SODIUM CHLORIDE 0.9 % (FLUSH) 10 ML SYRINGE IVF (10:25)
[2022-10-27 10:00] VITALS: BP 105/68; PULSE 80; RESP 18; TEMP 36.4; O2SAT 94
[2022-10-27 10:22] LABS: Basophils Absolute Auto 0.03 K/uL (0.00-0.30); Basophils Percent Auto 0.3 % (0.0-3.0); Eosinophils Absolute Auto 0.42 K/uL (0.00-0.50); Eosinophils Percent Auto 4.5 % (0.0-7.0); Hematocrit 42.9 % (37.0-53.0); Hemoglobin* 13.9 gm/dL (13.5-17.5); Immature Granulocytes Abs Auto 0.03 K/uL (0.00-0.30); Immature Granulocytes Pct Auto 0.3 %; Lymphocytes Percent Auto 19.6 % (20-44); Mean Corpuscular HGB Conc 32 gm/dL (32-36); Mean Corpuscular Hemoglobin 28 pg (26-34); Mean Corpuscular Volume 85 fL (80-100); Monocytes Percent Auto 7.2 % (0.0-11.0); Neutrophils Absolute Auto 6.42 K/uL (1.7-7.0); Neutrophils Percent Auto 68.1 % (42.0-72.0); Platelet Count* 266 K/uL (140-440); RDW Coefficient of Variation % 14.7 % (11.5-15.5); Red Blood Count 5.03 m/uL (4.30-5.90); White Blood Count* 9.43 K/uL (4.50-11.00)
[2022-10-27 10:23] LABS: Slide Review Reflex No
[2022-10-27 10:33] LABS: Chloride* 98 mmol/L (96-114); Sodium* 133 mmol/L (135-149)
[2022-10-27 10:35] LABS: Creatine Kinase* 116 U/L (54-186); Creatinine* 0.7 mg/dL (0.5-1.5); Estimated Glomerular Filt Rate 117 ml/min
[2022-10-27 10:36] LABS: Blood Urea Nitrogen* 13 mg/dL (5-24); Carbon Dioxide* 31 mmol/L (20-32); Glucose* 267 mg/dL (60-115)
[2022-10-27] MEDS: DAPTOmycin 50 MG/ML inj 700 MG IVP (12:32)
[2022-10-27] MEDS: SODIUM CHLORIDE 0.9 % (FLUSH) 10 ML SYRINGE IVF (12:32)
[2022-10-28 10:42] VITALS: BP 134/77; PULSE 67; RESP 18; TEMP 36.8; O2SAT 95
[2022-10-28] MEDS: DAPTOmycin 50 MG/ML inj 700 MG IVP (10:47)
--- NOTE | 2022-10-28 11:19 | PC.NURSE ---
Patient tolerated infusion. no s/s of reactions noted at this time. Patient wound dressing changed. no s/s of infection noted. Patient tolerated dressing change well. Patient PICC line dressing reinforced with tegaderm. PICC line site with absence of s/s of infection noted. Patient remained vitally stable pre and post ABX injection.
[2022-10-29 10:00] VITALS: BP 132/85; PULSE 69; TEMP 36.7; O2SAT 94
[2022-10-29] MEDS: SODIUM CHLORIDE 0.9 % (FLUSH) 10 ML SYRINGE IVF (10:17)
[2022-10-29] MEDS: DAPTOmycin 50 MG/ML inj 700 MG IVP (10:17)
[2022-10-29 10:20] VITALS: BP 128/78; PULSE 51; RESP 18; TEMP 36.7; O2SAT 97
--- NOTE | 2022-10-29 10:32 | PC.NURSE ---
Pt here for . outpatient dressing change and his antibiotic.? Dressing change done. it was C/D/I it was cleaned and ? Re-wrapped with 4x4 then gabriella wrap. picc is patent? IV? Antibiotic pt tolerated with no problems ? He was taken by wheel chair to the emergency room exit to meet his ride.
[2022-10-30] MEDS: DAPTOmycin 50 MG/ML inj 700 MG IVP (10:08)
[2022-10-30] MEDS: SODIUM CHLORIDE 0.9 % (FLUSH) 10 ML SYRINGE IVF (10:08)
--- NOTE | 2022-10-30 12:09 | PC.NURSE ---
VSS on RA, dressing change to R foot. Daptomycin administered via R PICC line. PICC line DC'd, pressure dressing applied. Pt DC'd back to [facility].
== END 2022-10-30 23:00 | disposition home or self-care (01) ==
LOC: MS OUT 09:54
PROVIDERS: Podiatrist; PCP Family Medicine; Visit Provider Family Medicine
DX: M86.8X7 Other osteomyelitis, ankle and foot (principal); Z74.09 Other reduced mobility; Z51.89 Encounter for other specified aftercare
CPT/HCPCS: 36415; 80048; 82550; 85025; 86140; 96365; 96366; 96374; 96376; 99211; A4221; C1751; J0878

== ENCOUNTER 2022-12-21 16:40 | Emergency (ER) | payer MEDICARE, MEDICAID, SELFPAY ==
[2022-12-21 16:45] VITALS: BP 116/72; PULSE 75; RESP 16; TEMP 36.6; O2SAT 96; BMI 38.1
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
--- NOTE | 2022-12-21 21:20 | CRLHL7_ITS ---
For Patients: As a result of the Cures Act, medical imaging exams and procedure reports are released immediately into your electronic medical record. You may view this report before your referring provider. If you have questions, please contact your health care provider. Indication: Eval for osteomyelitis.. Technique: Right foot, feelings, 3 views. Comparison: None. Findings: Soft tissue ulceration is noted at the distal 2nd distal phalanx. The ulceration extends to the cortical surface of the 2nd distal phalanx. No significant underlying erosive changes or periosteal reaction to suspect acute osteomyelitis although given the open ulceration, this cannot be entirely excluded. No acute fractures or dislocations. Mild soft tissue swelling of the distal aspect of the 2nd phalanx. Vascular calcifications are noted. Dictated by Jocelyne Ni MD @ 12/21/2022 10:44:04 PM (Electronically Signed)
[2022-12-21 21:44] LABS: Basophils Percent Auto 0.2 % (0.0-3.0); Eosinophils Percent Auto 3.6 % (0.0-7.0); Hematocrit 41.4 % (37.0-53.0); Hemoglobin* 13.7 gm/dL (13.5-17.5); Immature Granulocytes Pct Auto 0.6 %; Lymphocytes Percent Auto 19.5 % (20-44); Mean Corpuscular HGB Conc 33 gm/dL (32-36); Mean Corpuscular Hemoglobin 28 pg (26-34); Mean Corpuscular Volume 85 fL (80-100); Monocytes Percent Auto 9.4 % (0.0-11.0); Neutrophils Percent Auto 66.7 % (42.0-72.0); Platelet Count* 358 K/uL (140-440); RDW Coefficient of Variation % 14.2 % (11.5-15.5); Red Blood Count 4.86 m/uL (4.30-5.90); White Blood Count* 13.78 K/uL (4.50-11.00)
[2022-12-21 21:50] LABS: Slide Review Reflex No
[2022-12-21 22:02] LABS: Chloride* 99 mmol/L (96-114); Sodium* 135 mmol/L (135-149)
[2022-12-21 22:03] LABS: Potassium* 4.2 mmol/L (3.6-5.1)
[2022-12-21 22:05] LABS: Creatinine* 0.5 mg/dL (0.5-1.5); Est. Creatinine Clearance* 206.93; Estimated Glomerular Filt Rate 129 ml/min
[2022-12-21 22:06] LABS: Blood Urea Nitrogen* 11 mg/dL (5-24); Carbon Dioxide* 32 mmol/L (20-32); Glucose* 139 mg/dL (60-115)
[2022-12-21 22:09] LABS: C Reactive Protein* 2.3 mg/dL (0.5-1.0)
[2022-12-21 22:33] LABS: Erythrocyte SedimentationRate* 32 mm/hr (2-15)
[2022-12-21 22:40] VITALS: BP 143/85
--- NOTE | 2022-12-21 23:10 | ED.NURSE ---
Assumed care of pt at 2300 from Gail Ferreira RN.
--- NOTE | 2022-12-22 00:39 | ED.NURSE ---
Called and spoke with Minnie, nurse at [facility]. Update regarding plan of care for discharge reviewed. Minnie verbalized understanding. Facility is sending a staff member to come pick the patient up to transport home.
== END 2022-12-22 00:54 | disposition home or self-care (01) ==
PROVIDERS: Emergency Provider Family Medicine; PCP Family Medicine
DX: L03.031 Cellulitis of right toe (principal)
CPT/HCPCS: 36415; 73660; 80048; 85025; 85651; 86140; 99283; 99284

== ENCOUNTER 2023-01-14 18:39 | Outpatient (CLI) | payer MEDICARE, MEDICAID, SELFPAY | END 2023-01-14 18:40 | disposition home or self-care (01) | LOC: AMB 01-16 20:58 | PROVIDERS: PCP Family Medicine; Visit Provider Emergency Medicine | DX: I10 Essential (primary) hypertension (principal); R51.9 Headache, unspecified | CPT/HCPCS: A0425; A0427 ==

== ENCOUNTER 2023-01-14 18:55 | Emergency (ER) | payer MEDICARE, MEDICAID, SELFPAY ==
[2023-01-14 19:03] VITALS: BP 143/79; PULSE 84; RESP 18; TEMP 36.5; O2SAT 96; BMI 41.0
[2023-01-14 20:30] VITALS: BP 141/85; PULSE 94; RESP 18; O2SAT 96
[2023-01-14 21:00] VITALS: BP 144/79; PULSE 79; RESP 18; O2SAT 96
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
== END 2023-01-14 21:16 | disposition home or self-care (01) ==
LOC: ED 21:13
PROVIDERS: Emergency Provider Emergency Medicine; PCP Family Medicine
DX: Z71.1 Person with feared health complaint in whom no diagnosis is made (principal)
CPT/HCPCS: 99282

== ENCOUNTER 2023-09-18 20:27 | Emergency (ER) | payer MEDICARE, MEDICAID, SELFPAY ==
[2023-09-18 20:38] VITALS: BP 127/72; PULSE 90; RESP 16; TEMP 36.3; O2SAT 94
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
--- NOTE | 2023-09-18 20:57 | XR_ITS ---
Patient: SYLVIA PRAKASH Facility:?[facility] Patient ID:?[id number] Site Patient ID:?[id number]. Site :?[id number] Study:?XRay-Extremity Left FOOT-09/18/2023 9:13:40 PM Ordering Physician:ANEUDY Final Report: INDICATION: Infection, no foot injury from trauma TECHNIQUE: Foot radiograph 2 views left COMPARISON: None FINDINGS: Bone: An angulated defect is noted in the distal 2nd metatarsal with a large amount of adjacent periosteal bone formation. This may be due to remote trauma. Flattening of the distal 3rd metatarsal head is noted. Adjacent irregularity along the articular surface of the 3rd proximal phalanx is seen. 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 No significant ankle effusion is seen. Soft tissue: Unremarkable. No radiopaque foreign bodies are seen. Mild vascular calcifications are noted. IMPRESSION: 1. Flattening of the distal 3rd metatarsal head is noted. Adjacent irregularity along the articular surface of the 3rd proximal phalanx is seen. Clinical correlation is recommended to exclude septic arthritis or remote injury in this region. Evaluation with MRI may be helpful if physical examination is equivocal. Dictated by Edis Carvajal MD @ 09/18/2023 9:32:26 PM Dictated by: Edis Carvajal MD @ 09/18/2023 21:32:31 Signed by:?Edis Carvajal MD @09/18/2023 9:32:31 PM (Electronic Signature)
--- OUTSIDE RECORDS SUMMARY | 2023-09-18 21:09 | XMS_ITS | Clinical Summary ---
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 Max 20 doses/day. 240 Each 5 12/09/19 Active ketoconazole 2% topical (NIZORAL) creamIndications:T inea pedis of left foot Apply to bottom and edge of left foot bid 120 g 3 12/09/19 Active durable medical equipment (DME)Indications:O steomyelitis of right foot, unspecified type (HC) SQUARED TOE POST OP SHOE, LARGE, REF: [phone] 1 Each 12/31/19 Active acetaminophen (TYLENOL EXTRA STRGTH) 500 mg tablet Take 500 mg by mouth. 09/24/19 Active insulin lispro, U-100, (HUMALOG KWIKPEN; ADMELOG SOLOSTAR) 100 unit/mL inpn pen Inject 10 units subcutaneous. 09/24/19 23 Active hydrOXYzine pamoate (VISTARIL) 25 mg capsuleIndications :Osteomyelitis of right foot, unspecified type (HC) Take 1-2 Capsules (25-50 mg) by mouth every 6 hours if needed for Anxiety or Itching (Pain). 20 Capsule 01/02/20 23 Active melatonin 1 mg tablet Take 3 mg by mouth at bedtime. Not on med list staff reported Active lancets (Unistik 3 Comfort Lancet) 28 gauge miscIndications:Ty pe 2 diabetes mellitus with diabetic nephropathy, without long-term current use of insulin (HC) USE TO TEST FOUR TIMES DAILY 400 Each 3 06/28/19 24 Active novofine autocover 30 gauge x 1/3 needleIndications: Type 2 diabetes mellitus with other specified complication, with long-term current use of insulin (HC) USE DIRECTED 500 Each 3 07/05/19 24 Active Lantus Solostar U-100 Insulin 100 unit/mL (3 mL) penIndications:Typ e 2 diabetes mellitus with diabetic nephropathy, without long-term current use of insulin (HC) Inject 30 units subcutaneous two times daily. 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) USE DIRECTED CHANGE EVERY FOR 10 DAYS 9 Each 3 07/30/19 24 Active docusate (COLACE) 100 mg capsuleIndications :Constipation, unspecified constipation type TAKE 1 CAPSULE BY MOUTH TWICE DAILY NEEDED FOR CONSTIPATION 30 Capsule 12 08/03/19 24 Active loratadine (CLARITIN) 10 mg tabletIndications: Seasonal allergies TAKE 1 TABLET BY MOUTH DAILY 90 Tablet 2 08/14/19 24 Active metFORMIN (GLUCOPHAGE XR) 500 mg Extended-Release tabletIndications: Type 2 diabetes mellitus with diabetic nephropathy, with long-term current use of insulin (HC) TAKE 1 TABLET BY MOUTH TWICE DAILY WITH MEAL(S) 180 Tablet 08/14/19 24 Active blood sugar diagnostic (Accu-Chek Guide test strips) stripIndications: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 E11.9 NIDDM type II - Test 4 times/day. Reason: High A1C 400 Each 3 08/16/19 24 Active HumaLOG KwikPen Insulin 100 unit/mL inpn penIndications:Typ e 2 diabetes mellitus with diabetic nephropathy, with long-term current use of insulin (HC) INJECT 10 UNITS SUBCUTANEOUSLY THREE TIMES DAILY WITH MEAL(S) 60 mL 08/16/19 24 Active ibuprofen (ADVIL; MOTRIN) 800 mg tablet 08/11/19 24 Active escitalopram oxalate (LEXAPRO) 20 mg tabletIndications: Paranoid schizophrenia (HC),History of posttraumatic stress disorder (PTSD) Take 1 Tablet (20 mg) by mouth once daily. 28 Tablet 12 08/30/19 24 Active prazosin (MINIPRESS) 1 mg capsuleIndications :History of posttraumatic stress disorder (PTSD) Take 1 Capsule (1 mg) by mouth at bedtime. 28 Capsule 12 08/30/19 24 Active paliperidone palmitate (INVEGA SUSTENNA) 156 mg/mL intramuscular syringeIndications :Paranoid schizophrenia (HC) Inject 156 mg intramuscular every 4 weeks. 1 mL 12 08/30/19 24 Active traZODone (DESYREL) 50 mg tabletIndications: Insomnia due to mental condition Take 1 Tablet (50 mg) by mouth at bedtime, may repeat once. 90 Tablet 3 08/30/19 24 Active rosuvastatin (CRESTOR) 10 mg tabletIndications: Hyperlipidemia, unspecified hyperlipidemia type TAKE 1 TABLET BY MOUTH EVERY NIGHT AT BEDTIME 90 Tablet 2 09/08/19 24 Active amoxicillin-clavul anate 875-125 mg tablet (AUGMENTIN)Indicat ions:Diabetic ulcer of toe of left foot associated with type 2 diabetes mellitus, with fat layer exposed (HC) Take 1 Tablet by mouth two times daily with meals for 7 days. 14 Tablet 09/16/19 24 024 Active trimethoprim-sulfa methoxazole, 160-800 mg, (BACTRIM DS, SEPTRA DS) tabIndications:Ellie betic ulcer of toe of left foot associated with type 2 diabetes mellitus, with fat layer exposed (HC) Take 1 Tablet by mouth two times daily for 7 days. 14 Tablet 09/16/19 24 024 Active rosuvastatin (CRESTOR) 10 mg tabletIndications: Hyperlipidemia, unspecified hyperlipidemia type Take 1 Tablet (10 mg) by mouth at bedtime. 90 Tablet 3 10/15/19 23 024 Discontinued escitalopram oxalate (LEXAPRO) 20 mg tabletIndications: Paranoid schizophrenia (HC),History of posttraumatic stress disorder (PTSD) Take 1 Tablet (20 mg) by mouth once daily. 28 Tablet 12 02/16/20 23 024 Discontinued(*M edication adjustment) prazosin (MINIPRESS) 1 mg capsuleIndications :History of posttraumatic stress disorder (PTSD) Take 1 Capsule (1 mg) by mouth at bedtime. 28 Capsule 12 02/16/20 23 024 Discontinued(*M edication adjustment) paliperidone palmitate (INVEGA SUSTENNA) 156 mg/mL intramuscular syringeIndications :Paranoid schizophrenia (HC) Inject 156 mg intramuscular every 4 weeks. 1 mL 12 03/17/20 23 024 Discontinued(*M edication adjustment) traZODone (DESYREL) 50 mg tablet Take 50 mg by mouth at bedtime, may repeat once. 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 04/13/2022 Overview: History of posttraumatic stress disorder (PTSD) 03/17/2022 LLQ abdominal pain 03/14/2016 Situs inversus 03/14/2016 Paranoid schizophrenia 01/10/2009 Encounter for long-term (current) use of other m edications 01/10/2009 Diabetes mellitus, type 2 Hyperlipemia Chronic pain Resolved Problems Problem Noted Date Diagnosed Date Resolved Date Osteomyelitis 12/31/2022 07/29/2023 Paranoid schizophrenia 02/23/202203/17 Encounters Date Type Department Care Team Description 09/16/2023 8:20 AM CDT Office Visit [facility] [address] [place] [address] Sofía Rosales MD Toe Pain/problem (open sore on big toe x1 day, drainage) 09/16/2023 Travel 09/07/2023 Refill [facility] [address] [place] [address] Jose R Foster MD Refill Request (Rosuvastatin) 08/30/2023 9:30 AM CDT Office Visit [address] [address] Trey Kim MD Follow Up 08/30/2023 Travel 08/16/[address] [address] Jose R Foster MD Refill Request (Accu-chek Guide Test Strips, Humalog Kwikpen Insulin) 08/13/[address] [address] Jose R Foster MD Refill Request (Loratadine, Metformin) 08/02/[address] [address] Jose R Foster MD Refill Request (Docusate) 07/30/[address] [address] Lawrence Barragan MD Results 07/29/2023 4:45 PM CDT Ancillary Procedure [address] [address] 07/29/2023 4:10 PM CDT Office Visit [address] [address] Lawrence Barragan MD Toe Pain/problem (Left foot 4th toe discolored and swollen, noticed 2 days ago) 07/29/2023 Travel 07/29/[address] [address] Jose R Foster MD Refill Request (Dexcom G6 Sensor) 07/28/2023 Telephone [facility] [address] [place] [address] Vini Hayden DPM Appointment Request (Toe Issues) 07/27/2023 2:30 PM CDT Office Visit [facility] [address] [place] [address] Jose R Foster MD Diabetes 07/27/2023 2:15 PM CDT Orders Only [address] [address] [facility] 07/27/2023 Travel 07/27/2023 Refill [facility] [address] [place] [address] Jose R Foster MD Refill Request (Lantus solostar) 07/05/2023 Refill [facility] [address] [place] [address] Jose R Foster MD Refill Request (Novofine Autocover) 06/28/2023 Refill [facility] [address] [place] [address] Jose R Foster MD Refill Request (Unistik 3 Comfort Lancet) from Last 3 Months Immunizations Name Administration Dates Next Due Influenza, IIV4 02/22/2023,02/23/2022,04/19/2019 Pneumococcal Conj 20-valent (Prevnar 20) 023 Pneumococcal Poly,23-Valent (Pneumovax) 04/19/20 19 Td (Age >=7 Years) 08/28/2002 Td, Preservative Free (age >= 7 Years) 3 Tdap 07/17/2005 Family History Medical History Relation Name Comments Cancer Father throat Diabetes Mother Anesthesia Problem No Family History Blood Disease No Family History Clotting disorder No Family History Relation Name Status Comments Father Mother Social History Tobacco Use Types Packs/Day Years Used Date Smoking Tobacco: Every Day Cigarettes 1.5 16.2 Started: 08/17/2002; Last attempted to quit: 08/17/2017 Smokeless Tobacco: Never Tobacco Cessation:Ready to Q uit: No; Counseling Given: No Alcohol Use Standard Drinks/Week Comments Not Currently 0 (1 standard drink = 0.6 oz pur e alcohol) PHQ-2 Answer Date Recorded PHQ-2 TOTAL SCORE 0 04/16/2023 Social Connections Answer Date Recorded Frequency of Communication with Friends and Fami ly Not on file 09/24/2022 Alcohol Use Answer Date Recorded How often do you have a drink containing alcohol ? 0 02/22/2022 How many drinks containing a lcohol do you have on a typical day when you are drinking? 0 02/22/2022 How often do you have five or more drinks on one occasion? 0 02/22/2022 Financial Resource Strain Answer Date R ecorded Difficulty of Paying Living Expenses Not on file 05/10/2021 Difficulty of Paying Living Expenses Not on file 05/10/2021 Sex and Gender Information Value Date Recorded Sex Assigned at Not on file Gender Identity Not on file Sexual Orientation Not on file Obstetrics History Last Filed Vital Signs Vital Sign Reading Time Taken Comments Blood Pressure 133/85 09/16/2023 8:23 AM CDT Pulse 76 09/16/2023 8:23 AM CDT Temperature 36.3 ??C (97.3 ??F) 01/01/2023 2:30 PM CD T Respiratory Rate 18 01/01/2023 4:00 PM CDT Oxygen Saturation 95% 09/16/2023 8:23 AM CDT Inhaled Oxygen Concentration - - Weight 139.4 kg (307 lb 6.4 oz) 09/16/2023 8:23 AM CDT Height 180.3 cm (5' 11) 07/27/2023 2:38 PM CDT Body Mass Index 42.87 07/27/2023 2:38 PM CDT Plan of Treatment Upcoming Encounters Date Type Department Care Team (Late st Contact Info) Description 09/21/2023 1:45 PM CDT Office Visit [facility] [address] [place] [address] Vini Hayden DPM [address] [place] [address] 10/14/2023 1:40 PM CDT Office Visit [facility] [address] [place] [address] Jose R Foster MD [address] [place] [address] Health Maintenance Due Date Last Done Comments HIV for age 15-65 1993 Hepatitis C screening for ag e 18-79 02/09/1996 Hepatitis B series for Diabe chuck (1 of 3 - 19+ 3-dose series) 1997 Colonoscopy through age 75 2023 Influenza for age 9-49 01/09/2024 , 02/23/2022, 04/19/2019 Depression screening for age 12+ 04/16/2024 04/16/2023, 03/18/2023, 03/17/2023, Additional history exists BMI (ht and wt on same day) for age 18+ 07/26/2024 07/27/2023, 12/08/2022, 08/06/2022, Additional history exists Lipids for age 45-75 07/26/2028 07/27/2023, 02/24/2022, 11/03/2018, Additional history exists Tetanus booster 07/23/2032 07/23/2022, 07/08, 07/17/2005, Additional history exists Tdap Completed 07/17/2005 Pneumococcal series for age 6-64 Completed 07/24/19, 04/19/2019 COVID-19 vaccine series Completed 08/19/2023, 02/22 Goals Goal Patient Goal Type Associated Problems Recent Progress Patient-Stated? Author BLOOD PRESSURE - MAINTAINS BP less than 140/90 Blood Pressure No Dasia Briceno PA Procedures Procedure Name Priority Date/Time Associated Diagnosis Comments XR TOES 3 VIEWS LEFT Routine 07/29/2023 4:41 PM CDT Pain in left toe(s) URINE ALBUMIN TO CREATININE RATIO, RANDOM Routine 07/27/2023 2:26 PM CDT Type 2 diabetes mellitus with other specified complication, with long-term current use of insulin (HC) LIPID PANEL W REFLEX MEASURED LDL Routine 07/27/2023 2:22 PM CDT Long-term use of high-risk medication CBC WITH AUTO DIFFERENTIAL Routine 07/27/2023 2:22 PM CDT Hypertension BASIC METABOLIC PANEL Routine 07/27/2023 2:22 PM CDT Hypertension CBC WITH AUTO DIFFERENTIAL Routine 07/27/2023 2:22 PM CDT Hypertension HEMOGLOBIN A1C Routine 07/27/2023 2:22 PM CDT Type 2 diabetes mellitus with other specified complication, with long-term current use of insulin (HC) from Last 3 Months Results * XR TOES 3 VIEWS LEFT (07/29/2023 4:41 PM CDT) Anatomical Region Laterality Modality TOES Computed Radiogr aphy 07/30/2023 8:53 AM CDT Impressions 07/30/2023 8:53 AM CDT No acute bone abnormality. Dictated by Douglas Kumar MD @ 07/30/2023 8:53:31 AM (Electronically Signed) Narrative 07/30/2023 8:53 AM CDT For Patients: ??As a result of the Cures Act, medical imaging exams and procedure reports are released immediately into your electronic medical record. ??You may view this report before your referring provider. ??If you have questions, please contact your health care provider. INDICATION: Left 4th toe pain. COMPARISON: 11/03/2018. FINDINGS: Three views of the left 4th toe were obtained. There is no acute fracture or dislocation. Procedure Note Douglas Kumar MD - 07/30/2023 For Patients: As a result of the Cures Act, medical imagingexams and procedure reports are released immediately into your electronicmedical record. You may view this report before your referring provider.If you have questions, please contact your health care provider. INDICATION: Left 4th toe pain. COMPARISON: 11/03/2018. FINDINGS: Three views of the left 4th toe were obtained. There is no acute fractureor dislocation. IMPRESSION: No acute bone abnormality. Dictated by Douglas Kumar MD @ 07/30/2023 8:53:31 AM (Electronically Signed) Lawrence Barragan MD GENERAL IMAGIN G * (ABNORMAL) URINE ALBUMIN TO CREATININE RATIO, RANDOM (07/27/2023 2:26 PM CDT) ALB RAND URINE 817.0 mg/L 07/28/2023 1:17 AM CDT [facility] CREATININE,URIN E 3.92 g/L 07/28/2023 1:17 AM CDT [facility] TRA [facility] ALBUMIN TO CREATININE RATIO,RAND UR 208.4(H) <30.0 mg/g creat 07/28/2023 1:17 AM CDT [facility] Urine URINE SPECIMEN / Unknown Non-Blood / Unknown 07/27/2023 2:26 PM CDT 07/27/2023 2:26 PM CDT Narrative [facility] - 07/28/2023 1:17 AM CDT If Albumin to Creatinine Ratio is elevated, consider the following: ? Elevations seen with incipient nephropathy associated ?? with diabetes mellitus or hypertension. Stress, exercise,hematuria, ?? and urinary tract infection may also produce elevated results. If clinically indicated, confirm with ?24 Hour Albumin to Creatinine Ratio. ?? Jose R Foster MD URINE [facility] [address] [place] [address], * (ABNORMAL) CBC WITH AUTO DIFFERENTIAL (07/27/2023 2:22 PM CDT) WHITE BLOOD COUNT 12.8(H) 4.5 - 11.0 thou/cu mm 07/27/2023 2:32 PM CDT [facility] RED BLOOD COUNT 4.85 4.30 - 5.90 mil/cu mm 07/27/2023 2:32 PM CDT [facility] HEMOGLOBIN 14.4 13.5 - 17.5 g/dL 07/27/2023 2:32 PM CDT [facility] HEMATOCRIT 42.3 37.0 - 53.0 % 07/27/2023 2:32 PM CDT [facility] MCV 87 80 - 100 fL 07/27/2023 2:32 PM CDT [facility] MCH 29.7 26.0 - 34.0 pg 07/27/2023 2:32 PM CDT [facility] MCHC 34.0 32.0 - 36.0 g/dL 07/27/2023 2:32 PM CDT [facility] RDW 13.6 11.5 - 15.5 % 07/27/2023 2:32 PM CDT [facility] PLATELET COUNT 274 140 - 440 thou/cu mm 07/27/2023 2:32 PM CDT [facility] MPV 10.0 6.5 - 11.0 fL 07/27/2023 2:32 PM CDT [facility] % NEUT 59.6 % 07/27/2023 2:32 PM CDT [facility] % LYMPH 26.1 % 07/27/2023 2:32 PM CDT [facility] % MONO 9.3 % 07/27/2023 2:32 PM CDT [facility] % EOS 4.8 % 07/27/2023 2:32 PM CDT [facility] % BASO 0.2 % 07/27/2023 2:32 PM CDT [facility] ABSOLUTE NEUTROPHILS 7.6(H) 1.7 - 7.0 thou/cu mm 07/27/2023 2:32 PM CDT [facility] ABSOLUTE LYMPHOCYTES 3.3(H) 0.9 - 2.9 thou/cu mm 07/27/2023 2:32 PM CDT [facility] ABSOLUTE MONOCYTES 1.2(H) <0.9 thou/cu mm 07/27/2023 2:32 PM CDT [facility] ABSOLUTE EOSINOPHILS 0.6(H) <0.5 thou/cu mm 07/27/2023 2:32 PM CDT [facility] ABSOLUTE BASOPHILS 0.0 <0.3 thou/cu mm 07/27/2023 2:32 PM CDT [facility] Blood BLOOD SPECIMEN / Unknown Venipuncture / Unknown 07/27/2023 2:22 PM CDT 07/27/2023 2:24 PM CDT Jose R Foster MD HEMATOLOGY [facility] [address] [place] [address], * (ABNORMAL) LIPID PANEL W REFLEX MEASURED LDL (07/27/2023 2:22 PM CDT) CHOLESTEROL,TOTAL 190 100 - 199 mg/dL 07/27/2023 9:24 PM CDT [facility] Comment: Cholesterol, Total Reference Ranges Desirable <200 mg/dL Borderline 200-239 mg/dL High >=240 mg/dL TRIGLYCERIDES 340(H) <150 mg/dL 07/27/2023 9:24 PM CDT [facility] HDL CHOLESTEROL 45 >40 mg/dL 9:24 PM CDT [facility] NON-HDL CHOLESTEROL 145(H) <145 mg/dl 07/27/2023 9:24 PM CDT [facility] CHOL/HDL RATIO 4.22 <4.50 07/27/2023 9:24 PM CDT [facility] LDL CHOLESTEROL 77 <=130 mg/dL 07/27/2023 9:24 PM CDT [facility] VLDL CHOLESTEROL 68(H) <=30 mg/dL 07/27/2023 9:24 PM CDT [facility] PROVIDER ORDERED STATUS RANDOM 07/27/2023 9:24 PM CDT [facility] Blood BLOOD SPECIMEN / Unknown Venipuncture / Unknown 07/27/2023 2:22 PM CDT 07/27/2023 2:25 PM CDT Trey Kim MD CHEMISTRY Performing Organization Address [facility]/ZIP Co de Phone Number [facility] [address] [place] [address], * (ABNORMAL) HEMOGLOBIN A1C MONITORING (POCT) (07/27/2023 2:22 PM CDT) Pathologist [facility] HEMOGLOBIN A1C MONITORING (POCT) 6.8(H) <=6.4 % 07/27/2023 2:45 PM CDT [facility] Blood BLOOD SPECIMEN / Unknown Venipuncture / Unknown 07/27/2023 2:22 PM CDT 07/27/2023 2:24 PM CDT Narrative [facility] - 07/27/2023 2:45 PM CDT ? (<=6.9%) ? Indicates good control ? (7.0% to 7.9%) ? Indicates fair control ? (>=8.0%) ? Indicates poor control ?? NOTE: ??These thresholds are guidelines and ?individual targets may vary. Falsely low levels may be seen with: Recent Transfusion, Recent Significant Blood Loss, Hemolytic Diseases, or Falsely elevated levels may be seen with: Untreated Anemias, Splenectomy ? Jose R Foster MD CHEMISTRY Performing Organization Address [facility] Co de Phone Number [facility] [address] [place] [address], [place] [phone] * (ABNORMAL) BASIC METABOLIC PANEL (07/27/2023 2:22 PM CDT) [facility] SODIUM 140 136 - 145 mmol/L 07/27/2023 9:09 PM CDT [facility] POTASSIUM 4.4 3.5 - 5.1 mmol/L 07/27/2023 9:09 PM CDT [facility] CHLORIDE 100 98 - 107 mmol/L 07/27/2023 9:09 PM CDT [facility] CO2,TOTAL 27 22 - 29 mmol/L 07/27/2023 9:09 PM CDT [facility] ANION GAP 13 5 - 18 07/27/2023 9:09 PM CDT [facility] GLUCOSE 223(H) 70 - 99 mg/dL 07/27/2023 9:09 PM CDT [facility] CALCIUM 9.5 8.6 - 10.0 mg/dL 07/27/2023 9:09 PM CDT [facility] BUN 10 6 - 20 mg/dL 07/27/2023 9:09 PM T [facility] CREATININE 0.88 0.70 - 1.20 mg/dL 07/27/2023 9:09 PM T [facility] BUN/CREAT RATIO 11 10 - 20 9:09 PM T [facility] eGFR >90 >90 mL/min/1.7 3m2 07/27/2023 9:09 PM T [facility] Comment:As of 2021, eG FR is calculated by the CKD-EPI creatinine equation without race adjustment. ??eGFR can be influenced by muscle mass, exercise, and diet. ??The reported eGFR is an estimation only and is only applicable if the renal function is stable. Blood BLOOD SPECIMEN / Unknown Venipuncture / Unknown 07/27/2023 2:22 PM CDT 07/27/2023 2:24 PM CDT Jose R Foster MD [facility] [address] [place], [place] [id number], [place] from Last 3 Months Advance Directives * Full Code (Latest Code Status on File) Date Activated Date Inactivated Comments 01/01/2023 10:15 AM 01/01/2023 6:49 PM Question Answer Comments Code Status Discussion: Reviewed Preferences * Full Code Date Activated Date Inactivated Comments 03/16/2022 11:58 PM 03/25/2022 5:41 PM Question Answer Comments Code Status Discussion: Not Discussed * Full Code Date Activated Date Inactivated Comments 02/23/2022 10:42 AM 03/06/2022 4:32 PM Question Answer Comments Code Status Discussion: Reviewed Preferences * Full Code Date Activated Date Inactivated Comments 02/22/2022 1:39 PM 02/23/2022 10:42 AM Question Answer Comments Code Status Discussion: Unable to Assess Preferences, Provider to review later * Full Code Date Activated Date Inactivated Comments 11/08/2018 8:06 AM 11/08/2018 2:17 PM Care Teams Insurance Plan Specialist Relationship Specialty Start Date End Date Votel, Jose R Garvey MD [address] [place] [address] PCP - General Family Practice 07/23/22 Nghia Arauz MD Family Practice 12/25/10
[2023-09-18 21:33] LABS: Basophils Percent Auto 0.2 % (0.0-3.0); Eosinophils Percent Auto 3.4 % (0.0-7.0); Hematocrit 38.6 % (37.0-53.0); Hemoglobin* 12.8 gm/dL (13.5-17.5); Immature Granulocytes Pct Auto 0.9 %; Lymphocytes Percent Auto 24.6 % (20-44); Mean Corpuscular HGB Conc 33 gm/dL (32-36); Mean Corpuscular Hemoglobin 29 pg (26-34); Mean Corpuscular Volume 87 fL (80-100); Neutrophils Percent Auto 61.9 % (42.0-72.0); Platelet Count* 319 K/uL (140-440); RDW Coefficient of Variation % 12.6 % (11.5-15.5); Red Blood Count 4.43 m/uL (4.30-5.90); White Blood Count* 13.07 K/uL (4.50-11.00)
[2023-09-18 21:40] LABS: Slide Review Reflex No
[2023-09-18 21:56] LABS: Chloride* 104 mmol/L (96-114); Sodium* 135 mmol/L (135-149)
[2023-09-18 21:57] LABS: Potassium* 4.1 mmol/L (3.6-5.1)
[2023-09-18 21:59] LABS: Estimated Glomerular Filt Rate 95 ml/min
[2023-09-18 22:00] LABS: Anion Gap 1 mEq/L (7-15); Blood Urea Nitrogen* 17 mg/dL (5-24); Calcium* 8.9 mg/dL (8.4-10.6); Carbon Dioxide* 30 mmol/L (20-32); Glucose* 202 mg/dL (60-115)
[2023-09-18 22:03] LABS: C Reactive Protein* 2.5 mg/dL (0.5-1.0)
[2023-09-18 22:28] LABS: Erythrocyte SedimentationRate* 17 mm/hr (2-15)
== END 2023-09-18 23:21 | disposition home or self-care (01) ==
PROVIDERS: Emergency Provider Family Medicine; PCP Family Medicine
DX: E11.621 Type 2 diabetes mellitus with foot ulcer (principal); L03.116 Cellulitis of left lower limb
CPT/HCPCS: 36415; 73620; 80048; 85025; 85651; 86140; 99284

== ENCOUNTER 2023-09-29 12:52 | Outpatient (CLI) | payer MEDICARE, MEDICAID, SELFPAY ==
--- OUTSIDE RECORDS SUMMARY | 2023-09-29 12:55 | XMS_ITS | Clinical Summary ---
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 1 Each 07/24/19 23 Active cephalexin [...] SQUARED TOE POST OP SHOE, LARGE, REF: [phone] 1 Each 10/15/19 Active ondansetron (ZOFRAN ODT) [...] SQUARED TOE POST OP SHOE, LARGE, REF: [phone] 1 Each 12/31/19 23 Active acetaminophen (TYLENOL EXTRA STRGTH) 500 mg [...] 15 mL 11 07/28/19 24 Active sensor (brand [employer] G6 Sensor) for continuous blood glucose monitor [...] BEDTIME 90 Tablet 2 09/08/19 24 Active ciprofloxacin HCl (Cipro) 500 mg tabletIndications: Diabetic ulcer of toe of left foot associated with type 2 diabetes mellitus, with fat layer exposed (HC) Take 1 Tablet (500 mg) by mouth two times daily for 10 days. 20 Tablet 09/28/19 24 024 Active clindamycin (CLEOCIN) 300 mg capsuleIndications :Diabetic ulcer of toe of left foot associated with type 2 diabetes mellitus, with fat layer exposed (HC) Take 1 Capsule (300 mg) by mouth three times daily for 10 days. 30 Capsule 09/28/19 24 024 Active rosuvastatin (CRESTOR) 10 mg tabletIndications: Hyperlipidemia, unspecified hyperlipidemia type Take 1 Tablet (10 mg) by mouth at bedtime. 90 Tablet 3 10/15/19 23 024 Discontinued amoxicillin-clavul anate 875-125 mg tablet (AUGMENTIN)Indicat ions:Diabetic ulcer of toe of left foot associated with type 2 diabetes mellitus, with fat layer exposed (HC) Take 1 Tablet by mouth two times daily with meals for 7 days. 14 Tablet 09/16/19 24 024 trimethoprim-sulfa methoxazole, 160-800 mg, (BACTRIM DS, SEPTRA DS) tabIndications:Ellie betic ulcer of toe of left foot associated with type 2 diabetes mellitus, with fat layer exposed (HC) Take 1 Tablet by mouth two times daily for 7 days. 14 Tablet 09/16/19 24 024 Active Problems Problem Noted Date Diagnosed Date [...] Encounters Date Type Department Care Team Description 09/28/2023 2:00 PM CDT Office Visit [facility] [address] [place] [address] Vini Hayden DPM Ulcer (Follow up-left great toe) 09/28/2023 Travel 09/21/2023 1:45 PM CDT Office Visit [facility] [address] [place] [address] Vini Hayden DPM Ulcer (Left great toe) 09/21/2023 Travel 09/18/2023 Orders Only [facility] Scanner 1 scan: (1-Ord) [facility], XR FOOT LT 2V, 09/18/2023 09/16/2023 8:20 AM CDT Office Visit [address] [address] Sofía Rosales MD Toe Pain/problem (open sore on big toe x1 day, drainage) 09/16/2023 Travel 09/07/[address] [address] VoteJose R roberts MD Refill Request (Rosuvastatin) 08/30/2023 9:30 AM CDT Office Visit [address] [address] Trey Kim MD Follow Up 08/30/2023 Travel 08/16/[address] [address] Jose R Foster MD Refill Request (Accu-chek Guide Test Strips, Humalog Kwikpen Insulin) 08/13/[address] [address] Jose R Foster MD Refill Request (Loratadine, Metformin) 08/02/[address] [address] Jose R Foster MD Refill Request (Docusate) 07/30/[address] [address] Lawrence Barragan MD Results 07/29/2023 4:45 PM CDT Ancillary Procedure [address] [address] 07/29/2023 4:10 PM CDT Office Visit [address] [place] [address] Lawrence Barragan MD Toe Pain/problem (Left foot 4th toe discolored and swollen, noticed 2 days ago) 07/29/2023 Travel 07/29/2023 Refill [facility] [address] [place] [address] VoteJose R roberts MD Refill Request (Dexcom G6 Sensor) 07/28/2023 Telephone [facility] [address] [place] [address] Vini Hayden DPM Appointment Request (Toe Issues) 07/27/2023 2:30 PM CDT Office Visit [address] [address] RobbyteJose R roberts MD Diabetes 07/27/2023 2:15 PM CDT Orders Only [address] [address] [facility] 07/27/2023 Travel 07/27/2023 Refill [facility] [address] [place] [address] VotelJose R MD Refill Request (Lantus solostar) 07/05/[address] [address] Votel, Jose R Garvey MD Refill Request (Novofine Autocover) from Last 3 Months Immunizations Name Administration [...] Cessation:Ready to Q uit: No; Counseling Given: Yes Alcohol Use Standard Drinks/Week Comments Not Currently [...] Reading Time Taken Comments Blood Pressure 133/85 09/28/2023 2:12 PM CDT Pulse 86 09/28/2023 2:12 PM CDT Temperature 36.8 ??C (98.2 ??F) 09/28/2023 2:12 PM CD T Respiratory Rate 18 01/01/2023 4:00 PM CDT Oxygen Saturation 96% 09/28/2023 2:12 PM CDT Inhaled Oxygen Concentration - - Weight 140.8 kg (310 lb 4.8 oz) 09/21/2023 1:43 PM CDT Height 180.3 cm (5' 11) 07/27/2023 2:38 PM CDT Body Mass Index 43.28 07/27/2023 2:38 PM CDT Plan of Treatment Upcoming Encounters Date Type Department Care Team (Late st Contact Info) Description 10/14/2023 12:30 PM CDT Office Visit [facility] [address] [place] [address] Trey Kim MD [address] [place] [address] 10/14/2023 1:40 PM CDT Office Visit [facility] [address] [place] [address] Jose R Foster MD [address] [place] [address] Health Maintenance Due Date Last Done Comments [...] Procedure Name Priority Date/Time Associated Diagnosis Comments AEROBIC BACTERIAL CULTURE, STAIN Routine 09/21/2023 2:05 PM CDT Diabetic ulcer of toe of left foot associated with type 2 diabetes mellitus, with fat layer exposed (HC) SCAN-RADIOLOGY REPORT 09/18/2023 12:00 AM CDT XR TOES 3 VIEWS LEFT Routine 07/29/2023 [...] (HC) from Last 3 Months Results * (ABNORMAL) AEROBIC BACTERIAL CULTURE, STAIN (09/21/2023 2:05 PM CDT) CULTURE RESULT(A) 09/24/2023 11:33 AM CDT [facility] CULTURE 1+ Pseudomonas aeruginosa 09/24/2023 11:33 AM CDT [facility] CULTURE 1+ Streptococcus agalactiae (Strep Group B) 09/24/2023 11:33 AM CDT [facility] CULTURE 2+ Staphylococcus aureus 09/24/2023 11:33 AM CDT [facility] CULTURE 1+ Mixed destin present 09/24/2023 11:33 AM CDT [facility] GRAM STAIN 4+ RBCs 09/24/2023 11:33 AM CDT [facility] GRAM STAIN 1+ PMNs 09/24/2023 11:33 AM CDT [facility] GRAM STAIN No Epithelial cells 09/24/2023 11:33 AM CDT [facility] GRAM STAIN 4+ Gram Positive Cocci 09/24/2023 11:33 AM CDT [facility] GRAM STAIN 2+ Gram Negative Bacilli 09/24/2023 11:33 AM CDT [facility] Other (Other) Non-Blood / Unknown 09/21/2023 2:05 PM CDT 09/21/2023 2:20 PM CDT Narrative Organism Antibiotic Method Susceptibility Pseudomonas aeruginosa CEFTAZIDIME 4: S Pseudomonas aeruginosa LEVOFLOXACIN 0.5: S Pseudomonas aeruginosa CIPROFLOXACIN <=0.25: S Pseudomonas aeruginosa PIPERACILLIN/TAZO 8: S Pseudomonas aeruginosa CEFEPIME 2: S Pseudomonas aeruginosa TOBRAMYCIN <=1: S Pseudomonas aeruginosa MEROPENEM <=0.25: S Staphylococcus aureus OXACILLIN 0.5: S Comment:Oxacillin mckenzie sceptible should not be interpreted as penicillin or amoxicillin susceptible. Staphylococcus aureus CLINDAMYCIN 0.25: S Staphylococcus aureus DOXYCYCLINE <=0.5: S Staphylococcus aureus CEFAZOLIN S Staphylococcus aureus TRIMETHOPRIM/SULF <=0.5/9.5: S Vini DOWNING MICROBIOLOG[facility] [address] [place] [id number], * SCAN-RADIOLOGY REPORT (09/18/2023 12:00 AM CDT) Anatomical Region Laterality Modality Other Scanner OTHER * XR TOES 3 VIEWS LEFT (07/29/2023 [...] URINE 817.0 mg/L 07/28/2023 1:17 AM CDT [facility] CREATININE,URIN E 3.92 g/L 07/28/2023 1:[address] [facility] ALBUMIN TO CREATININE RATIO,RAND UR 208.4(H) <30.0 mg/g creat 07/28/2023 1:[address] [facility] Urine URINE SPECIMEN / Unknown Non-Blood / Unknown 07/27/2023 2:26 PM CDT 07/27/2023 2:26 PM CDT Narrative [facility] - 07/28/2023 1:17 AM CDT If Albumin to Creatinine Ratio is elevated, consider the following: ? Elevations seen with incipient nephropathy associated ?? with diabetes mellitus or hypertension. Stress, exercise,hematuria, ?? and urinary tract infection may also produce elevated results. If clinically indicated, confirm with ?24 Hour Albumin to Creatinine Ratio. ?? Jose R Foster MD URINE [facility] [address] [place] [address], [place] * (ABNORMAL) CBC WITH AUTO DIFFERENTIAL (07/27/2023 2:22 PM CDT) WHITE BLOOD COUNT 12.8(H) 4.5 - 11.0 thou/cu mm 07/27/2023 2:32 PM CDT [facility] RED BLOOD COUNT 4.85 4.30 - 5.90 mil/cu mm 07/27/2023 2:32 PM CDT [facility] HEMOGLOBIN 14.4 13.5 - 17.5 g/dL 07/27/2023 2:32 PM CDT [facility] HEMATOCRIT 42.3 37.0 - 53.0 % 07/27/2023 2:32 PM CDT [facility] MCV 87 80 - 100 fL 07/27/2023 2:32 PM CDT [facility] MCH 29.7 26.0 - 34.0 pg 07/27/2023 2:32 PM CDT [facility] MCHC 34.0 32.0 - 36.0 g/dL 07/27/2023 2:32 PM CDT [facility] RDW 13.6 11.5 - 15.5 % 07/27/2023 2:32 PM CDT [facility] PLATELET COUNT 274 140 - 440 thou/cu mm 07/27/2023 2:32 PM CDT [facility] MPV 10.0 6.5 - 11.0 fL 07/27/2023 2:32 PM CDT [facility] % NEUT 59.6 % 07/27/2023 2:32 PM CDT [facility] % LYMPH 26.1 % 07/27/2023 2:32 PM CDT [facility] % MONO 9.3 % 07/27/2023 2:32 PM CDT [facility] % EOS 4.8 % 07/27/2023 2:32 PM CDT [facility] % BASO 0.2 % 07/27/2023 2:32 PM CDT [facility] ABSOLUTE NEUTROPHILS 7.6(H) 1.7 - 7.0 thou/cu mm 07/27/2023 2:32 PM CDT [facility] ABSOLUTE LYMPHOCYTES 3.3(H) 0.9 - 2.9 thou/cu mm 07/27/2023 2:32 PM CDT [facility] ABSOLUTE MONOCYTES 1.2(H) <0.9 thou/cu mm 07/27/2023 2:32 PM CDT [facility] ABSOLUTE EOSINOPHILS 0.6(H) <0.5 thou/cu mm 07/27/2023 2:32 PM CDT [facility] ABSOLUTE BASOPHILS 0.0 <0.3 thou/cu mm 07/27/2023 2:32 PM CDT [facility] Blood BLOOD SPECIMEN / Unknown Venipuncture / Unknown 07/27/2023 2:22 PM CDT 07/27/2023 2:24 PM CDT Jose R Foster MD HEMATOLOGY [facility] [address] [place] [address], * (ABNORMAL) LIPID PANEL W REFLEX MEASURED LDL (07/27/2023 2:22 PM CDT) CHOLESTEROL,TOTAL 190 100 - 199 mg/dL 07/27/2023 9:24 PM CDT [facility] Comment: Cholesterol, Total Reference Ranges Desirable <200 mg/dL Borderline 200-239 mg/dL High >=240 mg/dL TRIGLYCERIDES 340(H) <150 mg/dL 07/27/2023 9:24 PM CDT [facility] HDL CHOLESTEROL 45 >40 mg/dL 9:24 PM CDT [facility] NON-HDL CHOLESTEROL 145(H) <145 mg/dl 07/27/2023 9:[address] [facility] CHOL/HDL RATIO 4.22 <4.50 07/27/2023 9:24 PM CDT [facility] LDL CHOLESTEROL 77 <=130 mg/dL 07/27/2023 9:24 PM CDT [facility] VLDL CHOLESTEROL 68(H) <=30 mg/dL 07/27/2023 9:[address] [facility] PROVIDER ORDERED STATUS RANDOM 07/27/2023 9:24 PM CDT [facility] Blood BLOOD SPECIMEN / Unknown Venipuncture / Unknown 07/27/2023 2:22 PM CDT 07/27/2023 2:25 PM CDT Trey Kim MD CHEMISTRY [facility] [address] [place] [id number], * (ABNORMAL) HEMOGLOBIN A1C MONITORING (POCT) (07/27/2023 2:22 PM CDT) HEMOGLOBIN A1C MONITORING (POCT) 6.8(H) <=6.4 % 07/27/2023 2:45 PM CDT [facility] Blood BLOOD SPECIMEN / Unknown Venipuncture / Unknown 07/27/2023 2:22 PM CDT 07/27/2023 2:24 PM CDT Narrative [facility] - 07/27/2023 2:45 PM CDT [...] Splenectomy ? Jose R Foster MD CHEMISTRY [facility] [address] [place] [address], * (ABNORMAL) BASIC METABOLIC PANEL (07/27/2023 2:22 PM CDT) SODIUM 140 136 - 145 mmol/L 07/27/2023 9:[address] [facility] POTASSIUM 4.4 3.5 - 5.1 mmol/L 07/27/2023 9:[address] [facility] CHLORIDE 100 98 - 107 mmol/L 07/27/2023 9:[address] [facility] CO2,TOTAL 27 22 - 29 mmol/L 07/27/2023 9:[address] [facility] ANION GAP 13 5 - 18 07/27/2023 9:[address] [facility] GLUCOSE 223(H) 70 - 99 mg/dL 07/27/2023 9:[address] [facility] CALCIUM 9.5 8.6 - 10.0 mg/dL 07/27/2023 9:[address] [facility] BUN 10 6 - 20 mg/dL 07/27/2023 9:[address] [facility] CREATININE 0.88 0.70 - 1.20 mg/dL 07/27/2023 9:[address] [facility] BUN/CREAT RATIO 11 10 - 20 9:[address] [facility] eGFR >90 >90 mL/min/1.7 3m2 07/27/2023 9:[address] [facility] Comment:As of 2021, eG FR [...] PM CDT Jose R Foster MD CHEMISTRY [facility] [address] [place] [address], from Last 3 Months Advance Directives * [...] 8:06 AM 11/08/2018 2:17 PM Care Teams Resource Manager Relationship Specialty Start Date End Date Votel, Jose R Garvey MD [address] [place] [address] PCP - General Family Practice 07/23/22 Nghia Arauz MD Family Practice 12/25/10
== END 2023-09-29 12:53 | disposition home or self-care (01) ==
LOC: WOUND 12:53
PROVIDERS: PCP Family Medicine; Visit Provider Surgery
DX: E11.40 Type 2 diabetes mellitus with diabetic neuropathy, unspecified (principal); L97.528 Non-pressure chronic ulcer of other part of left foot with other specified severity; L97.522 Non-pressure chronic ulcer of other part of left foot with fat layer exposed; F17.210 Nicotine dependence, cigarettes, uncomplicated; Z79.4 Long term (current) use of insulin; Z79.84 Long term (current) use of oral hypoglycemic drugs
CPT/HCPCS: 11042; 97597; G0463

== ENCOUNTER 2023-10-06 15:24 | Outpatient (CLI) | payer MEDICARE, MEDICAID, SELFPAY ==
--- OUTSIDE RECORDS SUMMARY | 2023-10-06 15:26 | XMS_ITS | Clinical Summary ---
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 1 Each 07/24/19 23 Active cephalexin [...] SQUARED TOE POST OP SHOE, LARGE, REF: [id number] 1 Each 10/15/19 Active ondansetron (ZOFRAN ODT) [...] SQUARED TOE POST OP SHOE, LARGE, REF: [id number] 1 Each 12/31/19 23 Active acetaminophen (TYLENOL [...] 15 mL 11 07/28/19 24 Active sensor (Reply.io G6 Sensor) for continuous blood glucose monitor [...] Description 09/28/2023 2:00 PM CDT Office Visit [facility] [address] [place] [address] Vini Hayden DPM Ulcer (Follow up-left great toe) 09/28/2023 Travel 09/21/2023 1:45 PM CDT Office Visit [facility] [address] [place] [address] Vini Hayden DPM Ulcer (Left great toe) 09/21/2023 Travel 09/18/2023 Orders Only [facility] Scanner 1 scan: (1-Ord) [facility], XR FOOT LT 2V, 09/18/2023 09/16/2023 8:20 AM CDT Office Visit [address] [address] Sofía Rosales MD Toe Pain/problem (open sore on big toe x1 day, drainage) 09/16/2023 Travel 09/07/[address] [address] VoteJose R roberts MD Refill Request (Rosuvastatin) 08/30/2023 9:30 AM CDT Office Visit [address] [address] Trey Kim MD Follow Up 08/30/2023 Travel 08/16/[address] [address] Jose R Foster MD Refill Request (Accu-chek Guide Test Strips, Humalog Kwikpen Insulin) 08/13/[address] [address] Jose R Foster MD Refill Request (Loratadine, Metformin) 08/02/[address] [address] Jose R Foster MD Refill Request (Docusate) 07/30/[address] [address] Lawrence Barragan MD Results 07/29/2023 4:45 PM CDT Ancillary Procedure [address] [address] 07/29/2023 4:10 PM CDT Office Visit [address] [place] [address] Lawrence Barragan MD Toe Pain/problem (Left foot 4th toe discolored and swollen, noticed 2 days ago) 07/29/2023 Travel 07/29/2023 Refill [facility] [address] [place] [address] Jose R Foster MD Refill Request (Dexcom G6 Sensor) 07/28/2023 Telephone [facility] [address] [place] [address] Vini Hayden DPM Appointment Request (Toe Issues) 07/27/2023 2:30 PM CDT Office Visit [address] [address] Jose R Foster MD Diabetes 07/27/2023 2:15 PM CDT Orders Only [address] [address] Lab[facility] 07/27/2023 Travel 07/27/2023 Refill [facility] [address] [place] [address] Jose R Foster MD Refill Request (Lantus solostar) from Last 3 Months Immunizations Name Administration [...] Description 10/14/2023 12:30 PM CDT Office Visit [facility] [address] [facility] [place] [address] Trey Kim MD [address] [facility] [place] [address] 10/21/2023 2:30 PM CDT Office Visit [facility] [address] [facility] [place] [address] Votel, Jose R Garvey MD [address] [place] [address] Health Maintenance Due Date Last Done Comments [...] CDT) CULTURE RESULT(A) 09/24/2023 11:33 AM CDT [facility] CULTURE 1+ Pseudomonas aeruginosa 09/24/2023 11:33 AM CDT [facility] CULTURE 1+ Streptococcus agalactiae (Strep Group B) 09/24/2023 11:33 AM CDT [facility] CULTURE 2+ Staphylococcus aureus 09/24/2023 11:33 AM CDT [facility] CULTURE 1+ Mixed destin present 09/24/2023 11:33 AM CDT [facility] GRAM STAIN 4+ RBCs 09/24/2023 11:33 AM CDT [facility] GRAM STAIN 1+ PMNs 09/24/2023 11:33 AM CDT [facility] GRAM STAIN No Epithelial cells 09/24/2023 11:33 AM CDT [facility] GRAM STAIN 4+ Gram Positive Cocci 09/24/2023 11:33 AM CDT [facility] GRAM STAIN 2+ Gram Negative Bacilli 09/24/2023 11:33 AM CDT [facility] Other (Other) Non-Blood / Unknown 09/21/2023 [...] S Staphylococcus aureus TRIMETHOPRIM/SULF <=0.5/9.5: S Vini Hayden [facility] MICROBIOLOGY [facility] [address] [place] [address], * SCAN-RADIOLOGY REPORT (09/18/2023 12:00 AM CDT) [...] For Patients: ??As a result of the Century Cures Act, medical imaging exams and procedure [...] URINE 817.0 mg/L 07/28/2023 1:17 AM CDT [facility] CREATININE,URIN E 3.92 g/L 07/28/2023 1:17 AM CDT [facility] ALBUMIN TO CREATININE RATIO,RAND UR 208.4(H) <30.0 mg/g creat 07/28/2023 1:17 AM CDT [facility] Urine URINE SPECIMEN / Unknown Non-Blood / Unknown 07/27/2023 2:26 PM CDT 07/27/2023 2:26 PM CDT Narrative [facility] - 07/28/2023 1:17 AM CDT If Albumin to Creatinine Ratio is elevated, consider the following: ? Elevations seen with incipient nephropathy associated ?? with diabetes mellitus or hypertension. Stress, exercise,hematuria, ?? and urinary tract infection may also produce elevated results. If clinically indicated, confirm with ?24 Hour Albumin to Creatinine Ratio. ?? Jose R Foster MD URINE [facility] [address] [place] [place] [address], [place] * (ABNORMAL) CBC WITH AUTO DIFFERENTIAL (07/27/2023 2:22 PM CDT) WHITE BLOOD COUNT 12.8(H) 4.5 - 11.0 thou/cu mm 07/27/2023 2:32 PM CDT [facility] RED BLOOD COUNT 4.85 4.30 - 5.90 mil/cu mm 07/27/2023 2:32 PM CDT [facility] HEMOGLOBIN 14.4 13.5 - 17.5 g/dL 07/27/2023 2:32 PM CDT [facility] HEMATOCRIT 42.3 37.0 - 53.0 % 07/27/2023 2:32 PM CDT [facility] MCV 87 80 - 100 fL 07/27/2023 2:32 PM CDT [facility] MCH 29.7 26.0 - 34.0 pg 07/27/2023 2:32 PM CDT [facility] MCHC 34.0 32.0 - 36.0 g/dL 07/27/2023 2:32 PM CDT [facility] RDW 13.6 11.5 - 15.5 % 07/27/2023 2:32 PM CDT [facility] PLATELET COUNT 274 140 - 440 thou/cu mm 07/27/2023 2:32 PM CDT [facility] MPV 10.0 6.5 - 11.0 fL 07/27/2023 2:32 PM CDT [facility] % NEUT 59.6 % 07/27/2023 2:32 PM CDT [facility] % LYMPH 26.1 % 07/27/2023 2:32 PM CDT [facility] % MONO 9.3 % 07/27/2023 2:32 PM CDT [facility] % EOS 4.8 % 07/27/2023 2:32 PM CDT [facility] % BASO 0.2 % 07/27/2023 2:32 PM CDT [facility] ABSOLUTE NEUTROPHILS 7.6(H) 1.7 - 7.0 thou/cu mm 07/27/2023 2:32 PM CDT [facility] ABSOLUTE LYMPHOCYTES 3.3(H) 0.9 - 2.9 thou/cu mm 07/27/2023 2:32 PM CDT [facility] ABSOLUTE MONOCYTES 1.2(H) <0.9 thou/cu mm 07/27/2023 2:32 PM CDT [facility] ABSOLUTE EOSINOPHILS 0.6(H) <0.5 thou/cu mm 07/27/2023 2:32 PM CDT [facility] ABSOLUTE BASOPHILS 0.0 <0.3 thou/cu mm 07/27/2023 2:32 PM CDT [facility] Blood BLOOD SPECIMEN / Unknown Venipuncture / Unknown 07/27/2023 2:22 PM CDT 07/27/2023 2:24 PM CDT Jose R Foster MD HEMATOLOGY [facility] [address] [place] [address], * (ABNORMAL) LIPID PANEL W REFLEX MEASURED LDL (07/27/2023 2:22 PM CDT) CHOLESTEROL,TOTAL 190 100 - 199 mg/dL 07/27/2023 9:24 PM CDT [facility] Comment: Cholesterol, Total Reference Ranges Desirable <200 mg/dL Borderline 200-239 mg/dL High >=240 mg/dL TRIGLYCERIDES 340(H) <150 mg/dL 07/27/2023 9:24 PM CDT [facility] HDL CHOLESTEROL 45 >40 mg/dL 9:24 PM CDT [facility] NON-HDL CHOLESTEROL 145(H) <145 mg/dl 07/27/2023 9:24 PM CDT [facility] CHOL/HDL RATIO 4.22 <4.50 07/27/2023 9:24 PM CDT [facility] LDL CHOLESTEROL 77 <=130 mg/dL 07/27/2023 9:24 PM CDT [facility] VLDL CHOLESTEROL 68(H) <=30 mg/dL 07/27/2023 9:24 PM CDT [facility] PROVIDER ORDERED STATUS RANDOM 07/27/2023 9:24 PM CDT [facility] Blood BLOOD SPECIMEN / Unknown Venipuncture / Unknown 07/27/2023 2:22 PM CDT 07/27/2023 2:25 PM CDT Trey Kim MD CHEMISTRY Performing Organization Address [facility] Co de Phone Number [facility] [address] [address], [place] * (ABNORMAL) HEMOGLOBIN A1C MONITORING (POCT) (07/27/2023 2:22 PM CDT) HEMOGLOBIN A1C MONITORING (POCT) 6.8(H) <=6.4 % 07/27/2023 2:45 PM CDT [facility] Blood BLOOD SPECIMEN / Unknown Venipuncture / Unknown 07/27/2023 2:22 PM CDT 07/27/2023 2:24 PM CDT Narrative [facility] - 07/27/2023 2:45 PM CDT ? (<=6.9%) [...] R Foster MD CHEMISTRY Performing Organization Address City/[facility]/ZIP Co de Phone Number [facility] [address] [place] [address], [place] [phone] * (ABNORMAL) BASIC METABOLIC PANEL (07/27/2023 2:22 PM CDT) SODIUM 140 136 - 145 mmol/L 07/27/2023 9:09 PM CDT [facility] POTASSIUM 4.4 3.5 - 5.1 mmol/L 07/27/2023 9:09 PM T [facility] CHLORIDE 100 98 - 107 mmol/L 07/27/2023 9:09 PM CDT [facility] CO2,TOTAL 27 22 - 29 mmol/L 07/27/2023 9:09 PM T [facility] ANION GAP 13 5 - 18 07/27/2023 9:09 PM T [facility] GLUCOSE 223(H) 70 - 99 mg/dL 07/27/2023 9:09 PM T [facility] CALCIUM 9.5 8.6 - 10.0 mg/dL 07/27/2023 9:09 PM T [facility] BUN 10 6 - 20 mg/dL 07/27/2023 9:09 PM T [facility] CREATININE 0.88 0.70 - 1.20 mg/dL 07/27/2023 9:09 PM T [facility] BUN/CREAT RATIO 11 10 - 20 9:09 PM T [facility] eGFR >90 >90 mL/min/1.7 3m2 07/27/2023 9:09 PM T [facility] Comment:As of 2021, eG [...] PM CDT Jose R Foster MD CHEMISTRY [facility] [address] [place] [address], from Last 3 Months Advance Directives * [...] 8:06 AM 11/08/2018 2:17 PM Care Teams Evaporative Cooler Installer Relationship Specialty Start Date End Date Votel, Jose R Garvey MD [address] [place] [address] PCP - General Family Practice 07/23/22 Nghia Arauz MD Family Practice 12/25/10
== END 2023-10-06 15:25 | disposition home or self-care (01) ==
LOC: WOUND 15:24
PROVIDERS: PCP Family Medicine; Visit Provider Surgery
DX: E11.621 Type 2 diabetes mellitus with foot ulcer (principal); E11.40 Type 2 diabetes mellitus with diabetic neuropathy, unspecified; L97.522 Non-pressure chronic ulcer of other part of left foot with fat layer exposed; F17.210 Nicotine dependence, cigarettes, uncomplicated; Z79.4 Long term (current) use of insulin
CPT/HCPCS: 11042

== ENCOUNTER 2023-10-20 15:24 | Outpatient (CLI) | payer MEDICARE, MEDICAID, SELFPAY ==
--- OUTSIDE RECORDS SUMMARY | 2023-10-20 15:25 | XMS_ITS | Clinical Summary ---
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 1 Each 3 Active cephalexin (KEFLEX) 500 mg capsuleIndications: Osteomyelitis of right foot, unspecified type (HC) TAKE 2 CAPSULES BY MOUTH TWICE DAILY 112 Capsule 12 3 Active Additional Information Patient not taking.Reported on 08/30/2023 durable medical equipment (DME)Indications:Fo llow-up examination after orthopedic surgery,Osteomyelit is of right foot, unspecified type (HC) Squared toe post op shoe, large 1 Each 3 Active losartan (COZAAR) 50 mg tabletIndications:T ype 2 diabetes mellitus with diabetic nephropathy, without long-term current use of insulin (HC) TAKE 1 TABLET BY MOUTH DAILY 28 Tablet 12 3 Active durable medical equipment (DME)Indications:Fo llow-up examination after orthopedic surgery,Osteomyelit is of right foot, unspecified type (HC),Diabetic ulcer of right midfoot associated with type 2 diabetes mellitus, with necrosis of muscle (HC) SQUARED TOE POST OP SHOE, LARGE, REF: [phone] 1 Each 3 Active ondansetron (ZOFRAN ODT) 4 mg disintegrating tabletIndications:N ausea Place 1-2 Tablets (4-8 mg) on the tongue every 8 hours if needed for Nausea/Vomiting. 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 Max 20 doses/day. 240 Each 5 3 Active ketoconazole 2% topical (NIZORAL) creamIndications:Ti chino pedis of left foot Apply to bottom and edge of left foot bid 120 g 3 3 Active durable medical equipment (DME)Indications:Os teomyelitis of right foot, unspecified type (HC) SQUARED TOE POST OP SHOE, LARGE, REF: [phone] 1 Each 3 Active acetaminophen (TYLENOL EXTRA STRGTH) 500 mg tablet Take 500 mg by mouth. 3 Active insulin lispro, U-100, (HUMALOG KWIKPEN; ADMELOG SOLOSTAR) 100 unit/mL inpn pen Inject 10 units subcutaneous. 3 Active hydrOXYzine pamoate (VISTARIL) 25 mg capsuleIndications: Osteomyelitis of right foot, unspecified type (HC) Take 1-2 Capsules (25-50 mg) by mouth every 6 hours if needed for Anxiety or Itching (Pain). 20 Capsule 3 Active melatonin 1 mg tablet Take 3 mg by mouth at bedtime. 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) USE DIRECTED CHANGE EVERY FOR 10 DAYS 9 Each 3 4 Active docusate (COLACE) 100 mg capsuleIndications: Constipation, unspecified constipation type TAKE 1 CAPSULE BY MOUTH TWICE DAILY NEEDED FOR CONSTIPATION 30 Capsule 12 4 Active loratadine (CLARITIN) 10 mg tabletIndications:S easonal allergies TAKE 1 TABLET BY MOUTH DAILY 90 Tablet 2 4 Active metFORMIN (GLUCOPHAGE XR) 500 mg Extended-Release tabletIndications:T ype 2 diabetes mellitus with diabetic nephropathy, with long-term current use of insulin (HC) TAKE 1 TABLET BY MOUTH TWICE DAILY WITH MEAL(S) 180 Tablet 4 Active blood sugar diagnostic (Accu-Chek Guide test strips) stripIndications:Ty pe 2 diabetes mellitus with diabetic nephropathy, 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 E11.9 NIDDM type II - Test 4 times/day. Reason: High A1C 400 Each 3 4 Active HumaLOG KwikPen Insulin 100 unit/mL inpn penIndications:Type 2 diabetes mellitus with diabetic nephropathy, with long-term current use of insulin (HC) INJECT 10 UNITS SUBCUTANEOUSLY THREE TIMES DAILY WITH MEAL(S) 60 mL 4 Active ibuprofen (ADVIL; MOTRIN) 800 mg tablet 4 Active escitalopram oxalate (LEXAPRO) 20 mg tabletIndications:P aranoid schizophrenia (HC),History of posttraumatic stress disorder (PTSD) Take 1 Tablet (20 mg) by mouth once daily. 28 Tablet 12 4 Active prazosin (MINIPRESS) 1 mg capsuleIndications: History of posttraumatic stress disorder (PTSD) Take 1 Capsule (1 mg) by mouth at bedtime. 28 Capsule 12 4 Active paliperidone palmitate (INVEGA SUSTENNA) 156 mg/mL intramuscular syringeIndications: Paranoid schizophrenia (HC) Inject 156 mg intramuscular every 4 weeks. 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 90 Tablet 3 4 Active rosuvastatin (CRESTOR) 10 mg tabletIndications:H yperlipidemia, unspecified hyperlipidemia type TAKE 1 TABLET BY MOUTH EVERY NIGHT AT BEDTIME 90 Tablet 2 4 Active amoxicillin-clavula ana 875-125 mg tablet (AUGMENTIN)Indicati ons:Diabetic ulcer of toe of left foot associated with type 2 diabetes mellitus, with fat layer exposed (HC) Take 1 Tablet by mouth two times daily with meals for 7 days. 14 Tablet 4 09/23/19 24 trimethoprim-sulfam ethoxazole, 160-800 mg, (BACTRIM DS, SEPTRA DS) tabIndications:Diab etic ulcer of toe of left foot associated with type 2 diabetes mellitus, with fat layer exposed (HC) Take 1 Tablet by mouth two times daily for 7 days. 14 Tablet 4 09/23/19 24 ciprofloxacin HCl (Cipro) 500 mg tabletIndications:D iabetic ulcer of toe of left foot associated with type 2 diabetes mellitus, with fat layer exposed (HC) Take 1 Tablet (500 mg) by mouth two times daily for 10 days. 20 Tablet 4 10/08/19 24 clindamycin (CLEOCIN) 300 mg capsuleIndications: Diabetic ulcer of toe of left foot associated with type 2 diabetes mellitus, with fat layer exposed (HC) Take 1 Capsule (300 mg) by mouth three times daily for 10 days. 30 Capsule 4 10/08/19 24 Active Problems Problem Noted Date Diagnosed Date [...] Encounters Date Type Department Care Team Description 10/19/2023 Refill [facility] [address] [place] [address] RobbyteJose R roberts MD Refill Request (Losartan) 10/14/2023 Telephone [facility] [address] [place] [address] Trey Kim MD Late Cancel Appointment 09/28/2023 2:00 PM CDT Office Visit [facility] [address] [place] [address] Vini Hayden DPM Ulcer (Follow up-left great toe) 09/28/2023 Travel 09/21/2023 1:45 PM CDT Office Visit [facility] [address] [place] [address] Vini Hayden, DPM Ulcer (Left great toe) 09/21/2023 Travel 09/18/[address] [facility] Scanner 1 scan: (1-Ord) [facility], XR FOOT LT 2V, 09/18/2023 09/16/2023 8:20 AM CDT Office Visit [address] [address] Sofía Rosales MD Toe Pain/problem (open sore on big toe x1 day, drainage) 09/16/2023 Travel 09/07/[address] [address] Jose R Foster MD Refill Request (Rosuvastatin) 08/30/2023 9:30 AM CDT Office Visit [address] [address] Trey Kim MD Follow Up 08/30/2023 Travel 08/16/[address] [address] Jose R Foster MD Refill Request (Accu-chek Guide Test Strips, Humalog Kwikpen Insulin) 08/13/[address] [address] Jose R Foster MD Refill Request (Loratadine, Metformin) 08/02/[address] [address] Jose R Foster MD Refill Request (Docusate) 07/30/[address] [address] Lawrence Barragan MD Results 07/29/2023 4:45 PM CDT Ancillary Procedure [facility] [address] [place] [address] 07/29/2023 4:10 PM CDT Office Visit [facility] [address] [place] [address] Lawrence Barragan MD Toe Pain/problem (Left foot 4th toe discolored and swollen, noticed 2 days ago) 07/29/2023 Travel 07/29/[address] [address] Jose R Foster MD Refill Request (Dexcom G6 Sensor) 07/28/[address] [address] Vini Hayden DPM Appointment Request (Toe Issues) 07/27/2023 2:30 PM CDT Office Visit [address] [address] Jose R Foster MD Diabetes 07/27/2023 2:15 PM CDT Orders Only [address] [address] Lab, [facility] 07/27/2023 Travel 07/27/[address] [address] Jose R Foster MD Refill Request (Lantus [...] Date Smoking Tobacco: Every Day Cigarettes 1.5 16.3 Started: 08/17/2002; Last attempted to quit: 08/17/2017 [...] Care Team (Late st Contact Info) Description 10/21/2023 2:30 PM CDT [facility] [address] [facility] [address] Jose R Foster MD [address] [place] [address] 10/26/2023 1:00 PM CDT Office Visit [facility] [address] [place] [address] Trey Kim MD [address] [place] [address] Health Maintenance Due Date Last Done Comments [...] 07/17/2005 Pneumococcal series for age 6-64 Completed 07/24/19 23, 04/19/2019 COVID-19 vaccine series Completed 08/19/2023, 02/22 [...] CDT) CULTURE RESULT(A) 09/24/2023 11:33 AM CDT [facility] CULTURE 1+ Pseudomonas aeruginosa 09/24/2023 11:33 AM CDT [facility] CULTURE 1+ Streptococcus agalactiae (Strep Group B) 09/24/2023 11:33 AM CDT [facility] CULTURE 2+ Staphylococcus aureus 09/24/2023 11:33 AM CDT [facility] CULTURE 1+ Mixed destin present 09/24/2023 11:33 AM CDT [facility] GRAM STAIN 4+ RBCs 09/24/2023 11:33 AM CDT [facility] GRAM STAIN 1+ PMNs 09/24/2023 11:33 AM CDT [facility] GRAM STAIN No Epithelial cells 09/24/2023 11:33 AM CDT [facility] GRAM STAIN 4+ Gram Positive Cocci 09/24/2023 11:33 AM CDT [facility] GRAM STAIN 2+ Gram Negative Bacilli 09/24/2023 11:33 AM CDT [facility] Other (Other) Non-Blood / Unknown 09/21/2023 [...] Staphylococcus aureus TRIMETHOPRIM/SULF <=0.5/9.5: S Vini Hayden DPM [facility] [address] [place] [address], * SCAN-RADIOLOGY REPORT (09/18/2023 12:00 AM CDT) [...] 817.0 mg/L 07/28/2023 1:17 AM CDT [facility] CREATININE,URIN E 3.92 g/L 07/28/2023 1:17 AM CDT [facility] ALBUMIN TO CREATININE RATIO,RAND UR 208.4(H) <30.0 mg/g creat 07/28/2023 1:17 AM CDT [facility] Urine URINE SPECIMEN / Unknown Non-Blood / Unknown 07/27/2023 2:26 PM CDT 07/27/2023 2:26 PM CDT Narrative [facility] - 07/28/2023 1:17 AM CDT If Albumin to Creatinine Ratio is elevated, consider the following: ? Elevations seen with incipient nephropathy associated ?? with diabetes mellitus or hypertension. Stress, exercise,hematuria, ?? and urinary tract infection may also produce elevated results. If clinically indicated, confirm with ?24 Hour Albumin to Creatinine Ratio. ?? Jose R Foster MD URINE [facility] [address] [place] [address], [place] * (ABNORMAL) CBC WITH AUTO DIFFERENTIAL (07/27/2023 2:22 PM CDT) Pathologist [facility] WHITE BLOOD COUNT 12.8(H) 4.5 - 11.0 thou/cu mm 07/27/2023 2:32 PM CDT [facility] RED BLOOD COUNT 4.85 4.30 - 5.90 mil/cu mm 07/27/2023 2:32 PM CDT [facility] HEMOGLOBIN 14.4 13.5 - 17.5 g/dL 07/27/2023 2:32 PM CDT [facility] HEMATOCRIT 42.3 37.0 - 53.0 % 07/27/2023 2:32 PM CDT [facility] MCV 87 80 - 100 fL 07/27/2023 2:32 PM CDT [facility] MCH 29.7 26.0 - 34.0 pg 07/27/2023 2:32 PM CDT [facility] MCHC 34.0 32.0 - 36.0 g/dL 07/27/2023 2:32 PM CDT [facility] RDW 13.6 11.5 - 15.5 % 07/27/2023 2:32 PM CDT [facility] PLATELET COUNT 274 140 - 440 thou/cu mm 07/27/2023 2:32 PM CDT [facility] MPV 10.0 6.5 - 11.0 fL 07/27/2023 2:32 PM CDT [facility] % NEUT 59.6 % 07/27/2023 2:32 PM CDT [facility] % LYMPH 26.1 % 07/27/2023 2:32 PM CDT [facility] % MONO 9.3 % 07/27/2023 2:32 PM CDT [facility] % EOS 4.8 % 07/27/2023 2:32 PM CDT [facility] % BASO 0.2 % 07/27/2023 2:32 PM CDT [facility] ABSOLUTE NEUTROPHILS 7.6(H) 1.7 - 7.0 thou/cu mm 07/27/2023 2:32 PM CDT [facility] ABSOLUTE LYMPHOCYTES 3.3(H) 0.9 - 2.9 thou/cu mm 07/27/2023 2:32 PM CDT [facility] ABSOLUTE MONOCYTES 1.2(H) <0.9 thou/cu mm 07/27/2023 2:32 PM CDT [facility] ABSOLUTE EOSINOPHILS 0.6(H) <0.5 thou/cu mm 07/27/2023 2:32 PM CDT [facility] ABSOLUTE BASOPHILS 0.0 <0.3 thou/cu mm 07/27/2023 2:32 PM CDT [facility] Blood BLOOD SPECIMEN / Unknown Venipuncture / Unknown 07/27/2023 2:22 PM CDT 07/27/2023 2:24 PM CDT Jose R Foster MD HEMATOLOGY [facility] [address] [place] [address], * (ABNORMAL) LIPID PANEL W REFLEX MEASURED LDL (07/27/2023 2:22 PM CDT) CHOLESTEROL,TOTAL 190 100 - 199 mg/dL 07/27/2023 9:24 PM CDT [facility] Comment: Cholesterol, Total Reference Ranges Desirable <200 mg/dL Borderline 200-239 mg/dL High >=240 mg/dL TRIGLYCERIDES 340(H) <150 mg/dL 07/27/2023 9:24 PM CDT [facility] HDL CHOLESTEROL 45 >40 mg/dL 9:24 PM CDT [facility] NON-HDL CHOLESTEROL 145(H) <145 mg/dl 07/27/2023 9:24 PM CDT [facility] CHOL/HDL RATIO 4.22 <4.50 07/27/2023 9:24 PM CDT [facility] LDL CHOLESTEROL 77 <=130 mg/dL 07/27/2023 9:24 PM CDT [facility] VLDL CHOLESTEROL 68(H) <=30 mg/dL 07/27/2023 9:24 PM CDT [facility] PROVIDER ORDERED STATUS RANDOM 07/27/2023 9:24 PM CDT [facility] Blood BLOOD SPECIMEN / Unknown Venipuncture / Unknown 07/27/2023 2:22 PM CDT 07/27/2023 2:25 PM CDT Trey Kim MD CHEMISTRY [facility] [address] [address], * (ABNORMAL) HEMOGLOBIN A1C MONITORING (POCT) (07/27/2023 2:22 PM CDT) HEMOGLOBIN A1C MONITORING (POCT) 6.8(H) <=6.4 % 07/27/2023 2:45 PM CDT [facility] Blood BLOOD SPECIMEN / Unknown Venipuncture / Unknown 07/27/2023 2:22 PM CDT 07/27/2023 2:24 PM CDT Narrative [facility] - 07/27/2023 2:45 PM CDT ? [...] Splenectomy ? Jose R Foster MD CHEMISTRY [facility] [address] [place] [address], * (ABNORMAL) BASIC METABOLIC PANEL (07/27/2023 2:22 PM CDT) SODIUM 140 136 - 145 mmol/L 07/27/2023 9:09 PM CDT [facility] POTASSIUM 4.4 3.5 - 5.1 mmol/L 07/27/2023 9:09 PM CDT [facility] CHLORIDE 100 98 - 107 mmol/L 07/27/2023 9:09 PM CDT [facility] CO2,TOTAL 27 22 - 29 mmol/L 07/27/2023 9:09 PM T [facility] ANION GAP 13 5 - 18 07/27/2023 9:09 PM T [facility] GLUCOSE 223(H) 70 - 99 mg/dL 07/27/2023 9:09 PM T [facility] CALCIUM 9.5 8.6 - 10.0 mg/dL 07/27/2023 9:09 PM T [facility] BUN 10 6 - 20 mg/dL 07/27/2023 9:09 PM [facility] CREATININE 0.88 0.70 - 1.20 mg/dL 07/27/2023 9:09 PM T [facility] BUN/CREAT RATIO 11 10 - 20 9:09 PM T [facility] eGFR >90 >90 mL/min/1.7 3m2 07/27/2023 9:09 PM T [facility] Comment:As of 2021, eG [...] CDT Jose R Foster MD CHEMISTRY [facility] [address] [place] [address], from Last 3 Months Advance Directives * [...] 8:06 AM 11/08/2018 2:17 PM Care Teams Track Inspecting Supervisor Relationship Specialty Start Date End Date Votel, Jose R Garvey MD [address] [place] [address] PCP - General Family Practice 07/23/22 Nghia Arauz MD Family Practice 12/25/10
== END 2023-10-20 15:25 | disposition home or self-care (01) ==
LOC: WOUND 15:24
PROVIDERS: PCP Family Medicine; Visit Provider Surgery
DX: E11.621 Type 2 diabetes mellitus with foot ulcer (principal); E11.40 Type 2 diabetes mellitus with diabetic neuropathy, unspecified; L97.522 Non-pressure chronic ulcer of other part of left foot with fat layer exposed; Z79.4 Long term (current) use of insulin; F17.210 Nicotine dependence, cigarettes, uncomplicated
CPT/HCPCS: 11042

== ENCOUNTER 2023-10-27 14:40 | Outpatient (CLI) | payer MEDICARE, MEDICAID, SELFPAY ==
--- OUTSIDE RECORDS SUMMARY | 2023-10-27 14:42 | XMS_ITS | Clinical Summary ---
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 1 Each 07/24/19 23 Active cephalexin (KEFLEX) 500 mg capsuleIndications :Osteomyelitis of right foot, unspecified type (HC) TAKE 2 CAPSULES BY MOUTH TWICE DAILY 112 Capsule 12 08/25/19 23 Active durable medical equipment (DME)Indications:F ollow-up examination after orthopedic surgery,Osteomyeli tis of right foot, unspecified type (HC) Squared toe post op shoe, large 1 Each 10/01/19 23 Active durable medical equipment (DME)Indications:F ollow-up examination after orthopedic surgery,Osteomyeli tis of right foot, unspecified type (HC),Diabetic ulcer of right midfoot associated with type 2 diabetes mellitus, with necrosis of muscle (HC) SQUARED TOE POST OP SHOE, LARGE, REF: [phone] 1 Each 10/15/19 Active ondansetron (ZOFRAN ODT) 4 mg disintegrating tabletIndications: Nausea Place 1-2 Tablets (4-8 mg) on the tongue every 8 hours if needed for Nausea/Vomiting. 30 Tablet 10/23/19 23 Active acetaminophen (TYLENOL EXTRA STRGTH) 500 [...] insulin (HC) USE DIRECTED 1 Each 11 12/03/19 23 Active nicotine (Nicorette) 4 mg lozengeIndications :Tobacco use Place 1 Lozenge (4 mg) in mouth, between cheek & gum every hour while awake as needed for Nicotine Craving. Max 20 doses/day. 240 Each 5 12/09/19 23 Active ketoconazole 2% topical (NIZORAL) creamIndications:T inea pedis of left foot Apply to bottom and edge of left foot bid 120 g 3 12/09/19 Active durable medical equipment (DME)Indications:O steomyelitis of right foot, unspecified type (HC) SQUARED TOE POST OP SHOE, LARGE, REF: [phone] 1 Each 12/31/19 23 Active acetaminophen (TYLENOL EXTRA STRGTH) 500 mg tablet Take 500 mg by mouth. 09/24/19 23 Active insulin lispro, U-100, (HUMALOG KWIKPEN; ADMELOG SOLOSTAR) 100 unit/mL inpn pen Inject 10 units subcutaneous. 09/24/19 Active hydrOXYzine pamoate (VISTARIL) 25 mg capsuleIndications [...] 15 mL 11 07/28/19 24 Active sensor ([employer] G6 Sensor) for continuous blood glucose monitor [...] MOTRIN) 800 mg tablet 08/11/19 24 Active prazosin (MINIPRESS) 1 mg capsuleIndications :History of posttraumatic stress disorder (PTSD) Take 1 Capsule (1 mg) by mouth at bedtime. 28 Capsule 12 08/30/19 24 Active paliperidone palmitate (INVEGA SUSTENNA) 156 mg/mL intramuscular syringeIndications :Paranoid schizophrenia (HC) Inject 156 mg intramuscular every 4 weeks. 1 mL 08/30/19 24 Active traZODone (DESYREL) 50 mg tabletIndications: Insomnia due to mental condition Take 1 Tablet (50 mg) by mouth at bedtime, may repeat once. 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 28 Tablet 10/26/19 24 Active miscellaneous medical supply miscIndications:Di abetic ulcer of toe of left foot associated with type 2 diabetes mellitus, with fat layer exposed (HC) As directed. 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 28 Tablet 12 08/30/19 24 024 Discontinued(*M edication adjustment) ciprofloxacin HCl (Cipro) 500 mg tabletIndications: Diabetic ulcer of toe of left foot associated with type 2 diabetes mellitus, with fat layer exposed (HC) Take 1 Tablet (500 mg) by mouth two times daily for 10 days. 20 Tablet 09/28/19 24 024 clindamycin (CLEOCIN) 300 mg capsuleIndications :Diabetic ulcer of toe of left foot associated with type 2 diabetes mellitus, with fat layer exposed (HC) Take 1 Capsule (300 mg) by mouth three times daily for 10 days. 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 Paranoid schizophrenia 01/10/2009 Encounter for long-term (current) use of other m edications 01/10/2009 Diabetes mellitus, type 2 Hyperlipemia Chronic pain Resolved Problems Problem Noted Date Diagnosed Date Resolved Date Osteomyelitis 12/31/2022 07/29/2023 Paranoid schizophrenia 02/23/202203/17 Encounters Date Type Department Care Team Description 10/27/2023 Refill [facility] [address] [facility] [address] Jose R Foster MD Refill Request (POVIDONE-IODINE SWABS) 10/26/2023 1:00 PM CDT Office Visit [facility] [address] [place] [address] Trey Kim MD Follow Up; Medication Management (feeling, tired, it must be the weather) 10/26/2023 Travel 10/19/2023 Refill [facility] [address] [place] [address] Jose R Foster MD Refill Request (Losartan) 10/14/2023 Telephone [facility] [address] [place] [address] Trey Kim MD Late Cancel Appointment 09/28/2023 2:00 PM CDT Office Visit [address] [address] Vini Hayden DPM Ulcer (Follow up-left great toe) 09/28/2023 Travel 09/21/2023 1:45 PM CDT Office Visit [address] [address] Vini Hayden DPM Ulcer (Left great toe) 09/21/2023 Travel 09/18/2023 Orders Only [facility] Scanner 1 scan: (1-Ord) [facility], XR FOOT LT 2V, 09/18/2023 09/16/2023 8:20 AM CDT Office Visit [address] [address] Sofía Rosales MD Toe Pain/problem (open sore on big toe x1 day, drainage) 09/16/2023 Travel 09/07/[address] [address] Jose R Foster MD Refill Request (Rosuvastatin) 08/30/2023 9:30 AM CDT Office Visit [address] [address] Trey Kim MD Follow Up 08/30/2023 Travel 08/16/[address] [address] Jose R Foster MD Refill Request (Accu-chek Guide Test Strips, Humalog Kwikpen Insulin) 08/13/[address] [address] Jose R Foster MD Refill Request (Loratadine, Metformin) 08/02/[address] [address] Jose R Foster MD Refill Request (Docusate) 07/30/[address] [address] Lawrence Barragan MD Results 07/29/2023 4:45 PM CDT Ancillary Procedure [address] [address] 07/29/2023 4:10 PM CDT Office Visit [address] [address] Lawrence Barragan MD Toe Pain/problem (Left foot 4th toe discolored and swollen, noticed 2 days ago) 07/29/2023 Travel 07/29/[address] [address] Jose R Foster MD Refill Request (Dexcom G6 Sensor) 07/28/[address] [address] Vini Hayden, DPM Appointment Request (Toe Issues) 07/27/2023 2:30 PM CDT Office Visit [address] [address] Jsoe R Foster MD Diabetes 07/27/2023 2:15 PM CDT Orders Only [address] [address] Lab, [facility] 07/27/2023 Travel 07/27/[address] [address] Jose R Foster MD Refill Request (Lantus [...] PHQ-2 Answer Date Recorded PHQ-2 TOTAL SCORE 1 10/26/2023 Social Connections Answer Date Recorded Frequency of [...] Sign Reading Time Taken Comments Blood Pressure 104/55 10/26/2023 12:55 PM CDT Pulse 83 10/26/2023 12:55 PM CDT Temperature 36.8 ??C (98.2 ??F) 09/28/2023 2:12 PM CD T Respiratory Rate 18 01/01/2023 4:00 PM CDT Oxygen Saturation 96% 09/28/2023 2:12 PM CDT Inhaled Oxygen Concentration - - Weight 140.6 kg (309 lb 14.4 oz) 2023 12:55 PM CDT Height 180.3 cm (5' 11) 07/27/2023 2:38 PM CDT Body Mass Index 43.22 07/27/2023 2:38 PM CDT Plan of Treatment Upcoming Encounters Date Type Department Care Team (Late st Contact Info) Description 11/10/2023 10:00 AM CDT Office Visit [facility] [address] [place] [address] Jose R Foster MD [address] [place] [address] 01/25/2024 1:30 PM CDT Office Visit [facility] [address] [place] [address] Trey Kim MD [address] [place] [address] Health Maintenance Due Date Last Done Comments HIV for age 15-65 1993 Hepatitis C screening for ag e 18-79 02/09/1996 Hepatitis B series for Diabe chuck (1 of 3 - 19+ 3-dose series) 1997 Colonoscopy through age 75 2023 Influenza for age 9-49 01/09/2024 , 02/23/2022, 04/19/2019 BMI (ht and wt on same day) for age 18+ 07/26/2024 07/27/2023, 12/08/2022, 08/06/2022, Additional history exists Depression screening for age 12+ 10/26/2024 10/27/2023, 10/26/2023, 04/16/2023, Additional history exists Lipids for age 45-75 07/26/2028 07/27/2023, 02/24/2022, 11/03/2018, Additional history exists Tetanus booster 07/23/2032 07/23/2022, 07/08, 07/17/2005, Additional history exists Tdap Completed 07/17/2005 Pneumococcal series for age 6-64 Completed 07/24/19 23, 04/19/2019 COVID-19 vaccine series Completed 08/19/2023, 02/22 Goals Goal Patient Goal Type Associated Problems Recent Progress Patient-Stated? Author BLOOD PRESSURE - MAINTAINS BP less than 140/90 Blood Pressure Dasia Beltrán PA Procedures Procedure Name Priority Date/Time Associated [...] CDT) CULTURE RESULT(A) 09/24/2023 11:33 AM CDT [facility] CULTURE 1+ Pseudomonas aeruginosa 09/24/2023 11:33 AM CDT [facility] CULTURE 1+ Streptococcus agalactiae (Strep Group B) 09/24/2023 11:33 AM CDT [facility] CULTURE 2+ Staphylococcus aureus 09/24/2023 11:33 AM CDT [facility] CULTURE 1+ Mixed destin present 09/24/2023 11:33 AM CDT [facility] GRAM STAIN 4+ RBCs 09/24/2023 11:33 AM CDT [facility] GRAM STAIN 1+ PMNs 09/24/2023 11:33 AM CDT [facility] GRAM STAIN No Epithelial cells 09/24/2023 11:33 AM CDT [facility] GRAM STAIN 4+ Gram Positive Cocci 09/24/2023 11:33 AM CDT [facility] GRAM STAIN 2+ Gram Negative Bacilli 09/24/2023 11:33 AM CDT [facility] Other (Other) Non-Blood / Unknown 09/21/2023 [...] TRIMETHOPRIM/SULF <=0.5/9.5: S Vini Hayden DPM [facility] [address] [place] [address], * SCAN-RADIOLOGY REPORT (09/18/2023 12:00 AM CDT) [...] URINE 817.0 mg/L 07/28/2023 1:17 AM CDT [facility] CREATININE,URIN E 3.92 g/L 07/28/2023 1:17 AM CDT [facility] ALBUMIN TO CREATININE RATIO,RAND UR 208.4(H) <30.0 mg/g creat 07/28/2023 1:17 AM CDT [facility] Urine URINE SPECIMEN / Unknown Non-Blood / Unknown 07/27/2023 2:26 PM CDT 07/27/2023 2:26 PM CDT Narrative [facility] - 07/28/2023 1:17 AM CDT If Albumin to Creatinine Ratio is elevated, consider the following: ? Elevations seen with incipient nephropathy associated ?? with diabetes mellitus or hypertension. Stress, exercise,hematuria, ?? and urinary tract infection may also produce elevated results. If clinically indicated, confirm with ?24 Hour Albumin to Creatinine Ratio. ?? Jose R Foster MD URINE [facility] [address] [place] [address], * (ABNORMAL) CBC WITH AUTO DIFFERENTIAL (07/27/2023 2:22 PM CDT) WHITE BLOOD COUNT 12.8(H) 4.5 - 11.0 thou/cu mm 07/27/2023 2:[address] [facility] RED BLOOD COUNT 4.85 4.30 - 5.90 mil/cu mm 07/27/2023 2:[address] [facility] HEMOGLOBIN 14.4 13.5 - 17.5 g/dL 07/27/2023 2:[address] [facility] HEMATOCRIT 42.3 37.0 - 53.0 % 07/27/2023 2:[address] [facility] MCV 87 80 - 100 fL 07/27/2023 2:[address] [facility] MCH 29.7 26.0 - 34.0 pg 07/27/2023 2:[address] [facility] MCHC 34.0 32.0 - 36.0 g/dL 07/27/2023 2:[address] [facility] RDW 13.6 11.5 - 15.5 % 07/27/2023 2:[address] [facility] PLATELET COUNT 274 140 - 440 thou/cu mm 07/27/2023 2:[address] [facility] MPV 10.0 6.5 - 11.0 fL 07/27/2023 2:[address] [facility] % NEUT 59.6 % 07/27/2023 2:[address] [facility] % LYMPH 26.1 % 07/27/2023 2:[address] [facility] % MONO 9.3 % 07/27/2023 2:[address] [facility] % EOS 4.8 % 07/27/2023 2:[address] [facility] % BASO 0.2 % 07/27/2023 2:[address] [facility] ABSOLUTE NEUTROPHILS 7.6(H) 1.7 - 7.0 thou/cu mm 07/27/2023 2:[address] [facility] ABSOLUTE LYMPHOCYTES 3.3(H) 0.9 - 2.9 thou/cu mm 07/27/2023 2:[address] [facility] ABSOLUTE MONOCYTES 1.2(H) <0.9 thou/cu mm 07/27/2023 2:[address] [facility] ABSOLUTE EOSINOPHILS 0.6(H) <0.5 thou/cu mm 07/27/2023 2:[address] [facility] ABSOLUTE BASOPHILS 0.0 <0.3 thou/cu mm 07/27/2023 2:[address] [facility] Blood BLOOD SPECIMEN / Unknown Venipuncture / Unknown 07/27/2023 2:22 PM CDT 07/27/2023 2:24 PM CDT Jose R Foster MD HEMATOLOGY [facility] [address] [place] [address], * (ABNORMAL) LIPID PANEL W REFLEX MEASURED LDL (07/27/2023 2:22 PM CDT) CHOLESTEROL,TOTAL 190 100 - 199 mg/dL 07/27/2023 9:24 PM CDT [facility] Comment: Cholesterol, Total Reference Ranges Desirable <200 mg/dL Borderline 200-239 mg/dL High >=240 mg/dL TRIGLYCERIDES 340(H) <150 mg/dL 07/27/2023 9:24 PM CDT [facility] HDL CHOLESTEROL 45 >40 mg/dL 9:24 PM CDT [facility] NON-HDL CHOLESTEROL 145(H) <145 mg/dl 07/27/2023 9:24 PM CDT [facility] CHOL/HDL RATIO 4.22 <4.50 07/27/2023 9:24 PM CDT [facility] LDL CHOLESTEROL 77 <=130 mg/dL 07/27/2023 9:24 PM CDT [facility] VLDL CHOLESTEROL 68(H) <=30 mg/dL 07/27/2023 9:24 PM CDT [facility] PROVIDER ORDERED STATUS RANDOM 07/27/2023 9:24 PM CDT [facility] Blood BLOOD SPECIMEN / Unknown Venipuncture / Unknown 07/27/2023 2:22 PM CDT 07/27/2023 2:25 PM CDT Trey Kim MD CHEMISTRY [facility] [address] [place] [id number], * (ABNORMAL) HEMOGLOBIN A1C MONITORING (POCT) (07/27/2023 2:22 PM CDT) HEMOGLOBIN A1C MONITORING (POCT) 6.8(H) <=6.4 % 07/27/2023 2:[address] [facility] Blood BLOOD SPECIMEN / Unknown Venipuncture / Unknown 07/27/2023 2:22 PM CDT 07/27/2023 2:[address] [facility] - 07/27/2023 2:45 PM CDT ? [...] Splenectomy ? Jose R Foster MD CHEMISTRY [facility] [address] [place] [address], [place] [phone] * (ABNORMAL) BASIC METABOLIC PANEL (07/27/2023 2:22 PM CDT) SODIUM 140 136 - 145 mmol/L 07/27/2023 9:09 PM CDT [facility] POTASSIUM 4.4 3.5 - 5.1 mmol/L 07/27/2023 9:09 PM CDT [facility] CHLORIDE 100 98 - 107 mmol/L 07/27/2023 9:09 PM CDT [facility] CO2,TOTAL 27 22 - 29 mmol/L 07/27/2023 9:09 PM CDT [facility] ANION GAP 13 5 - 18 07/27/2023 9:09 PM CDT [facility] GLUCOSE 223(H) 70 - 99 mg/dL 07/27/2023 9:09 PM CDT [facility] CALCIUM 9.5 8.6 - 10.0 mg/dL 07/27/2023 9:09 PM CDT [facility] BUN 10 6 - 20 mg/dL 07/27/2023 9:09 PM CDT [facility] CREATININE 0.88 0.70 - 1.20 mg/dL 07/27/2023 9:09 PM T [facility] BUN/CREAT RATIO 11 10 - 20 9:09 PM CDT [facility] eGFR >90 >90 mL/min/1.7 3m2 07/27/2023 9:09 PM CDT [facility] Comment:As of 2021, [...] PM CDT Jose R Foster MD [facility] [address] [place] [id number], [place] from Last 3 Months Advance Directives [...] 8:06 AM 11/08/2018 2:17 PM Care Teams Sidewalk Inspector Relationship Specialty Start Date End Date Jose R Foster MD [address] [place] [address] PCP - General Family Practice 07/23/22 Nghia Arauz MD Family Practice 12/25/10
== END 2023-10-27 14:41 | disposition home or self-care (01) ==
LOC: WOUND 14:40
PROVIDERS: PCP Family Medicine; Visit Provider Surgery
DX: E11.621 Type 2 diabetes mellitus with foot ulcer (principal); E11.40 Type 2 diabetes mellitus with diabetic neuropathy, unspecified; L97.525 Non-pressure chronic ulcer of other part of left foot with muscle involvement without evidence of necrosis; F17.210 Nicotine dependence, cigarettes, uncomplicated; Z79.4 Long term (current) use of insulin
CPT/HCPCS: 97597

== ENCOUNTER 2023-11-03 13:54 | Outpatient (CLI) | payer MEDICARE, MEDICAID, SELFPAY ==
--- OUTSIDE RECORDS SUMMARY | 2023-11-03 13:55 | XMS_ITS | Clinical Summary ---
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 1 Each 07/24/19 23 Active cephalexin [...] SQUARED TOE POST OP SHOE, LARGE, REF: [phone] 1 Each 10/15/19 Active ondansetron (ZOFRAN ODT) [...] SQUARED TOE POST OP SHOE, LARGE, REF: [phone] 1 Each 12/31/19 23 Active acetaminophen (TYLENOL [...] 15 mL 11 07/28/19 24 Active sensor (Room[employer] G6 Sensor) for continuous blood glucose monitor [...] mg) by mouth at bedtime. 28 Capsule 08/30/19 24 Active paliperidone palmitate (INVEGA SUSTENNA) 156 mg/mL intramuscular syringeIndications :Paranoid schizophrenia (HC) Inject 156 mg intramuscular every 4 weeks. 1 mL 08/30/19 24 Active traZODone (DESYREL) 50 mg tabletIndications: Insomnia due to mental condition Take 1 Tablet (50 mg) by mouth at bedtime, may repeat once. 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 28 Tablet 10/26/19 24 Active miscellaneous medical supply miscIndications:Di abetic ulcer of toe of left foot associated with type 2 diabetes mellitus, with fat layer exposed (HC) As directed. 30 Each 2 10/27/19 24 Active povidone-iodine (PROFEND, BETADINE) 10 % topical swabIndications:Di abetic ulcer of toe of left foot associated with type 2 diabetes mellitus, with fat layer exposed (HC) Apply 1 Applicator topically to affected area(s) one time if needed (as needed for wound care) for up to 1200 doses. 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) TAKE 1 TABLET BY MOUTH DAILY 28 Tablet 10/02/19 23 024 Discontinued escitalopram oxalate (LEXAPRO) [...] Type Department Care Team Description 10/27/2023 Refill [facility] [address] [place] [address] Votel, Jose R Garvey MD Refill Request (POVIDONE-IODINE SWABS) 10/26/2023 1:00 PM CDT Office Visit [facility] [address] [place] [address] Trey Kim MD Follow Up; Medication Management (feeling, tired, it must be the weather) 10/26/2023 Travel 10/19/2023 Refill [facility] [address] [place] [address] Jose R Foster MD Refill Request (Losartan) 10/14/2023 Telephone [facility] [address] [place] [address] Trey Kim MD Late Cancel Appointment 09/28/2023 2:00 PM CDT Office Visit [address] [address] Vini Hayden DPM Ulcer (Follow up-left great toe) 09/28/2023 Travel 09/21/2023 1:45 PM CDT Office Visit [address] [address] Vini Hayden DPM Ulcer (Left great toe) 09/21/2023 Travel 09/18/2023 Orders Only [facility] Scanner 1 scan: (1-Ord) [facility], XR FOOT LT 2V, 09/18/2023 09/16/2023 8:20 AM CDT Office Visit [facility] [address] [place] [address] Sofía Rosales MD Toe Pain/problem (open sore on big toe x1 day, drainage) 09/16/2023 Travel 09/07/2023 Refill [facility] [address] [place] [address] Jose R Foster MD Refill Request (Rosuvastatin) 08/30/2023 9:30 AM CDT Office Visit [address] [address] Trey Kim MD Follow Up 08/30/2023 Travel 08/16/2023 Refill [facility] [address] [place] [address] Jose R Foster MD Refill Request (Accu-chek Guide Test Strips, Humalog Kwikpen Insulin) 08/13/2023 Refill [facility] [address] [facility] [place] [address] VoteJose R roberts MD Refill Request (Loratadine, Metformin) from Last 3 Months Immunizations Name Administration [...] Description 11/10/2023 10:00 AM CDT Office Visit [facility] [address] [place] [address] Jose R Foster MD [address] [place] [address] 01/25/2024 1:30 PM CDT Office Visit [facility] [address] [place] [address] Trey Kim MD [address] [place] [address] Health Maintenance Due Date Last Done Comments [...] (HC) SCAN-RADIOLOGY REPORT 09/18/2023 12:00 AM CDT LIPID PANEL W REFLEX MEASURED LDL Routine 07/27/2023 2:22 PM CDT Long-term use of high-risk medication from Last 3 Months or Most Recently Relevant to Health Maintenance Results * (ABNORMAL) AEROBIC BACTERIAL CULTURE, STAIN (09/21/2023 2:05 PM CDT) CULTURE RESULT(A) 09/24/2023 11:33 AM CDT [facility]- NTRAL LABORATORY CULTURE 1+ Pseudomonas aeruginosa 09/24/2023 11:33 AM CDT [facility]- NTRAL LABORATORY CULTURE 1+ Streptococcus agalactiae (Strep Group B) 09/24/2023 11:33 AM CDT [facility]- NTRAL LAB[facility]ORY CULTURE 2+ Staphylococcus aureus 09/24/2023 11:33 AM CDT [facility] N[facility]AL LAB[facility] CULTURE 1+ Mixed destin present 09/24/2023 11:33 AM CDT [facility]- NTRAL LABORATORY GRAM STAIN 4+ RBCs 09/24/2023 11:33 AM CDT [facility] NTRAL LAB[facility]ORY GRAM STAIN 1+ PMNs 09/24/2023 11:33 AM CDT [facility] GRAM STAIN No Epithelial cells 09/24/2023 11:33 AM CDT [facility] GRAM STAIN 4+ Gram Positive Cocci 09/24/2023 11:33 AM CDT [facility] GRAM STAIN 2+ Gram Negative Bacilli 09/24/2023 11:33 AM CDT [facility] Other (Other) Non-Blood / Unknown [...] Staphylococcus aureus TRIMETHOPRIM/SULF <=0.5/9.5: S Vini Hayden [facility] [address] [place] [id number], * SCAN-RADIOLOGY REPORT (09/18/2023 12:00 AM CDT) Anatomical Region Laterality Modality Other Scanner OTHER * (ABNORMAL) LIPID PANEL W REFLEX MEASURED LDL (07/27/2023 2:22 PM CDT) CHOLESTEROL,TOTAL 190 100 - 199 mg/dL 07/27/2023 9:24 PM CDT [facility] TRAL LABORATORY Comment: Cholesterol, Total Reference Ranges Desirable <200 mg/dL Borderline 200-239 mg/dL High >=240 mg/dL TRIGLYCERIDES 340(H) <150 mg/dL 07/27/2023 9:24 PM CDT [facility]AL LABORAT[facility] HDL CHOLESTEROL 45 >40 mg/dL 9:24 PM CDT [facility] [place] [facility] TRAL LAB[facility]ATORY NON-HDL CHOLESTEROL 145(H) <145 mg/dl 07/27/2023 9:24 PM CDT [facility] [place] [facility] TRAL LAB[facility] CHOL/HDL RATIO 4.22 <4.50 07/27/2023 9:24 PM CDT [facility] [place] [facility]AL [facility] LDL CHOLESTEROL 77 <=130 mg/dL 07/27/2023 9:24 PM CDT [facility] [place] [facility] VLDL CHOLESTEROL 68(H) <=30 mg/dL 07/27/2023 9:24 PM CDT [facility] [place] LAB[facility]ATORY-[facility] TRAL LABORATORY PROVIDER ORDERED STATUS RANDOM 07/27/2023 9:24 PM CDT [facility] [place] [facility] TRAL [facility] Blood BLOOD SPECIMEN / Unknown Venipuncture / Unknown 07/27/2023 2:22 PM CDT 07/27/2023 2:25 PM CDT Trey Kim MD CHEMISTRY [facility]AL LAB[facility]AT[facility] [address] [place] [address], from Last 3 Months or Most Recently Relevant to Health Maintenance Advance Directives * Full Code (Latest Code [...] 8:06 AM 11/08/2018 2:17 PM Care Teams Family Service Assistant Relationship Specialty Start Date End Date VoteJose R roberts MD [address] [place] [address] PCP - General Family Practice 07/23/22 Nghia Arauz MD Family Practice 12/25/10
== END 2023-11-03 13:55 | disposition home or self-care (01) ==
LOC: WOUND 13:54
PROVIDERS: PCP Family Medicine; Visit Provider Surgery
DX: E11.621 Type 2 diabetes mellitus with foot ulcer (principal); E11.40 Type 2 diabetes mellitus with diabetic neuropathy, unspecified; L97.522 Non-pressure chronic ulcer of other part of left foot with fat layer exposed; F17.210 Nicotine dependence, cigarettes, uncomplicated; Z79.4 Long term (current) use of insulin
CPT/HCPCS: 11043

== ENCOUNTER 2023-11-08 11:13 | Outpatient (CLI) | payer MEDICARE, MEDICAID, SELFPAY ==
--- NOTE | 2023-11-08 12:45 | CRLHL7_ITS ---
For Patients: As a result of the Cures Act, medical imaging exams and procedure reports are released immediately into your electronic medical record. You may view this report before your referring provider. If you have questions, please contact your health care provider. Indication: NON-PRESSURE CHRONIC ULCER OF OTHER PART OF LEFT FOOT Technique: Left foot 3 views Comparison: 09/18/2023 Findings: Dorsal spurring at the midfoot. Vascular calcifications. Soft tissue swelling about the great toe with associated soft tissue gas and soft tissue ulcer. No cortical destruction or periostitis. No fracture. Chronic changes to the distal 2nd metatarsal and the 3rd metatarsal head. Impression: Soft tissue ulcer with soft tissue swelling and soft tissue gas consistent with gas-forming organism. No osteomyelitis. Dictated by Grey Patino MD @ 11/08/2023 1:55:38 PM (Electronically Signed)
== END 2023-11-08 11:14 | disposition home or self-care (01) ==
PROVIDERS: PCP Family Medicine; Visit Provider Nurse Practitioner Family
DX: E11.621 Type 2 diabetes mellitus with foot ulcer (principal); E11.40 Type 2 diabetes mellitus with diabetic neuropathy, unspecified; L97.523 Non-pressure chronic ulcer of other part of left foot with necrosis of muscle; Z79.4 Long term (current) use of insulin; F17.210 Nicotine dependence, cigarettes, uncomplicated
CPT/HCPCS: 11043; 73630; 87070; 87186; 96372; G0463; J0696

== ENCOUNTER 2023-11-10 10:03 | Emergency (ER) | payer MEDICARE, MEDICAID, SELFPAY ==
--- NOTE | 2023-11-10 | CRLHL7_ITS ---
For Patients: As a result of the Century Cures Act, medical imaging exams and procedure reports are released immediately into your electronic medical record. You may view this report before your referring provider. If you have questions, please contact your health care provider. Indication: EVAL FOR FOURNIERS Technique: CT abdomen/pelvis and CT left lower extremity extending from the pelvis through the toes, with IV contrast, 150 mL Isovue 370 Comparison: Same-day scrotal ultrasound Findings: Situs inversus totalis. Lower thorax: Unremarkable Abdomen/pelvis: Likely mild diffuse hepatic steatosis. No focal hepatic lesions. The gallbladder and biliary system are unremarkable. The spleen, pancreas, and kidneys are unremarkable in appearance. The kidneys are normal in size and perfusion a normal fashion. Faint perinephric stranding, nonspecific. No solid renal masses, renal calculi, or hydroureteronephrosis. Mild circumferential bowel wall thickening, likely secondary to underdistention. The prostate is normal in size. There is no evidence of bowel obstruction or inflammation. The appendix is normal. No free fluid or free air. No abscess. No pathologically enlarged lymph nodes throughout the abdomen or pelvis. No abdominal aortic aneurysm. Soft tissue/musculoskeletal: There is some mild soft tissue stranding and fascial thickening seen in the perineum with extensive subcutaneous emphysema that extends into the left inguinal region and left scrotum. There is no extension to the left lower extremity. No abscess formation. There are several prominent, non pathologically enlarged left inguinal lymph nodes, likely reactive. Canal man No acute fracture or malalignment. Transitional lumbosacral vertebrae bilaterally. There are severe degenerative changes of the right femoroacetabular joint. No suspicious osseous lesions. There are extensive osteoarthritic degenerative changes seen throughout the left foot with scattered regions of cortical erosion with peripheral sclerosis, which may be sequela of chronic osteomyelitis. There is soft tissue edema seen in the great toe with extensive subcutaneous emphysema and several regions of cortical erosion and likely small joint effusion at the 1st metatarsophalangeal joint. Impression: 1. CT findings as detailed above consistent with necrotizing fasciitis of the perineum. 2. Edema and extensive subcutaneous gas in the 1st digit of the left foot with regions of cortical erosion, suggestive of osteomyelitis, to correlate with physical exam findings. Please note that all CT scans at this facility use dose modulation, iterative reconstruction, and/or weight-based dosing when appropriate to reduce radiation dose to as low as reasonably achievable. Dictated by Doug Wong MD @ 11/10/2023 1:01:10 PM (Electronically Signed)
[2023-11-10 10:14] VITALS: BP 121/66; PULSE 104; RESP 20; TEMP 37.2; O2SAT 96; BMI 43.2
--- NOTE | 2023-11-10 10:21 | CRLHL7_ITS ---
For Patients: As a result of the Century Cures Act, medical imaging exams and procedure reports are released immediately into your electronic medical record. You may view this report before your referring provider. If you have questions, please contact your health care provider. INDICATION: Pain and swelling COMPARISON: none TECHNIQUE: Saha scale imaging was performed of the scrotum. In addition color Doppler and spectral Doppler analysis was performed of the testes. FINDINGS: The right testicle demonstrates normal arterial and venous blood flow on color Doppler and spectral Doppler analysis. The right testicle has uniform echogenicity with no evidence of a suspicious mass or area of inflammation. The right testis measures 4.2 x 2.2 x 3.5 cm in size and the left testis is not visualized. Hypoechoic fluid is present within the left hemiscrotum. There is a complex collection of fluid in the peroneal subcutaneous tissues with surrounding increased vascularity measuring approximately 4.3 cm. Gas may be present within the peroneal soft tissues. 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 CT recommended. Normal right testicle. Left testicle not visualized. The left testicle may be absent or nondistended. Complex left hydrocele noted. Dictated by Grey Patino MD @ 11/10/2023 11:17:02 AM (Electronically Signed)
--- OUTSIDE RECORDS SUMMARY | 2023-11-10 11:26 | XMS_ITS | Clinical Summary ---
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 1 Each 07/24/19 23 Active cephalexin [...] SQUARED TOE POST OP SHOE, LARGE, REF: [phone] 1 Each 10/15/19 Active ondansetron (ZOFRAN ODT) [...] SQUARED TOE POST OP SHOE, LARGE, REF: [phone] 1 Each 12/31/19 23 Active acetaminophen (TYLENOL [...] 15 mL 11 07/28/19 24 Active sensor ([employer] G6 Sensor) for continuous blood glucose monitor [...] mouth once daily. 28 Tablet 12 08/30/19 024 Discontinued(*M edication adjustment) Active Problems Problem [...] Encounters Date Type Department Care Team Description 11/08/2023 Orders Only [facility] Scanner 1 scan: ([facility]-Ord[facility] MIN 3VW, 11/08/2023 10/27/2023 Refill [facility] [place] [address] Jose R Foster MD Refill Request (POVIDONE-IODINE SWABS) 10/26/2023 1:00 PM CDT Office Visit [facility] [place] [address] Trey Kim MD Follow Up; Medication Management (feeling, tired, it must be the weather) 10/26/2023 Travel 10/19/2023 Refill [facility] [address] [facility] [place] [address] Jose R Foster MD Refill Request (Losartan) 10/14/2023 Telephone [facility] [address] [place] [address] Trey Kim MD Late Cancel Appointment 09/28/2023 2:00 PM CDT Office Visit [facility] [address] [place] [address] Vini Hayden DPM Ulcer (Follow up-left great toe) 09/28/2023 Travel 09/21/2023 1:45 PM CDT Office Visit [facility] [address] [place] [address] Vini Hayden DPM Ulcer (Left great toe) 09/21/2023 Travel 09/18/2023 Orders Only [facility] Scanner 1 scan: (1-Ord) [facility], XR FOOT LT 2V, 09/18/2023 09/16/2023 8:20 AM CDT Office Visit [facility] [address] [place] [address] Sofía Rosales MD Toe Pain/problem (open sore on big toe x1 day, drainage) 09/16/2023 Travel 09/07/2023 Refill [facility] [address] [place] [address] Jose R Foster MD Refill Request (Rosuvastatin) 08/30/2023 9:30 AM CDT Office Visit [address] [address] Trey Kim MD Follow Up 08/30/2023 Travel 08/16/[address] [address] Jose R Foster MD Refill Request (Accu-chek Guide Test Strips, Humalog Kwikpen Insulin) 08/13/2023 Refill [facility] [address] [place] [address] Jose R Foster MD Refill Request (Loratadine, Metformin) from Last [...] Care Team (Late st Contact Info) Description 11/23/2023 3:20 PM CDT Office Visit [facility] [address] [place] [address] Jose R Foster MD [address] [place] [address] 01/25/2024 1:30 PM CDT Office Visit [facility] [address] [place] [address] Trey Kim MD [address] [place] [address] Health Maintenance Due Date Last Done Comments [...] Procedure Name Priority Date/Time Associated Diagnosis Comments SCAN-RADIOLOGY REPORT 11/08/2023 12:00 AM CDT AEROBIC BACTERIAL CULTURE, STAIN Routine 09/21/2023 2:05 PM CDT Diabetic ulcer of toe of left foot associated with type 2 diabetes mellitus, with fat layer exposed (HC) SCAN-RADIOLOGY REPORT 09/18/2023 12:00 AM CDT LIPID PANEL W REFLEX MEASURED LDL Routine 07/27/2023 2:22 PM CDT Long-term use of high-risk medication from Last 3 Months or Most Recently Relevant to Health Maintenance Results * SCAN-RADIOLOGY REPORT (11/08/2023 12:00 AM CDT) Only the most recent of2 resultswithin the time period is included. Anatomical Region Laterality Modality Other Scanner OTHER * (ABNORMAL) AEROBIC BACTERIAL CULTURE, STAIN (09/21/2023 2:05 PM CDT) CULTURE RESULT(A) 09/24/2023 11:33 AM CDT [facility] NTRAL LABORATORY CULTURE 1+ Pseudomonas aeruginosa 09/24/2023 11:33 AM CDT [facility] NTRAL LAB[facility] CULTURE 1+ Streptococcus agalactiae (Strep Group B) 09/24/2023 11:33 AM CDT [facility] NTRAL LAB[facility]ORY CULTURE 2+ Staphylococcus aureus 09/24/2023 11:33 AM CDT [facility] NTRAL LABORATORY CULTURE 1+ Mixed destin present 09/24/2023 11:33 AM CDT [facility] NTRAL LABORATORY GRAM STAIN 4+ RBCs 09/24/2023 11:33 AM CDT [facility] NTRAL LABORATORY GRAM STAIN 1+ PMNs 09/24/2023 11:33 AM CDT [facility] GRAM STAIN No Epithelial cells 09/24/2023 11:33 AM CDT [facility] GRAM STAIN 4+ Gram Positive Cocci 09/24/2023 11:33 AM CDT [facility] GRAM STAIN 2+ Gram Negative Bacilli 09/24/2023 11:33 AM CDT [facility] Other (Other) Non-Blood / Unknown 09/21/2023 [...] S Staphylococcus aureus TRIMETHOPRIM/SULF <=0.5/9.5: S Vini [facility] MICROBIOLOG[facility] [address] [place] [address], * (ABNORMAL) LIPID PANEL W REFLEX MEASURED LDL (07/27/2023 2:22 PM CDT) CHOLESTEROL,TOTAL 190 100 - 199 mg/dL 07/27/2023 9:24 PM CDT [facility] TRAL LABORATORY Comment: Cholesterol, Total Reference Ranges Desirable <200 mg/dL Borderline 200-239 mg/dL High >=240 mg/dL TRIGLYCERIDES 340(H) <150 mg/dL 07/27/2023 9:24 PM CDT [facility] TRAL LABORAT[facility] HDL CHOLESTEROL 45 >40 mg/dL 9:24 PM CDT [facility] TRAL LAB[facility] NON-HDL CHOLESTEROL 145(H) <145 mg/dl 07/27/2023 9:24 PM CDT [facility] [facility]AT[facility] TR[facility] LABORAT[facility] CHOL/HDL RATIO 4.22 <4.50 07/27/2023 9:24 PM CDT [facility] LDL CHOLESTEROL 77 <=130 mg/dL 07/27/2023 9:24 PM CDT [facility] TR[facility] VLDL CHOLESTEROL 68(H) <=30 mg/dL 07/27/2023 9:24 PM CDT [facility] TR[facility] PROVIDER ORDERED STATUS RANDOM 07/27/2023 9:24 PM CDT [facility] Blood BLOOD SPECIMEN / Unknown Venipuncture / Unknown 07/27/2023 2:22 PM CDT 07/27/2023 2:25 PM CDT Trey Kim MD CHEMISTRY Performing Organization Address City/State/[facility] Co de Phone Number [facility] [employer] LABORAT[facility]-CEN[facility]AL LABORATORY [address] [address], from Last 3 Months or Most Recently [...] 8:06 AM 11/08/2018 2:17 PM Care Teams Offal Trimmer Relationship Specialty Start Date End Date Votel, Jose R Garvey MD [address] [place] [id number] PCP - General Family Practice 07/23/22 Nghia Arauz MD Family Practice 12/25/10
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
[2023-11-10 11:51] LABS: Lactate Sepsis w/Reflex* 3.5 mmol/L (0.5-1.9)
[2023-11-10 11:52] LABS: Basophils Percent Auto 0.1 % (0.0-3.0); Hematocrit 36.3 % (37.0-53.0); Hemoglobin* 12.1 gm/dL (13.5-17.5); Immature Granulocytes Pct Auto 0.9 %; Lymphocytes Percent Auto 5.9 % (20-44); Mean Corpuscular HGB Conc 33 gm/dL (32-36); Mean Corpuscular Hemoglobin 28 pg (26-34); Mean Corpuscular Volume 85 fL (80-100); Monocytes Percent Auto 9.5 % (0.0-11.0); Neutrophils Percent Auto 83.6 % (42.0-72.0); Platelet Count* 237 K/uL (140-440); RDW Coefficient of Variation % 12.8 % (11.5-15.5); Red Blood Count 4.26 m/uL (4.30-5.90); White Blood Count* 20.17 K/uL (4.50-11.00)
[2023-11-10 11:56] LABS: Slide Review Reflex No
[2023-11-10 11:58] LABS: Troponin, Point-of-Care* 0.05 ng/ml (0.01-0.04)
[2023-11-10 12:17] LABS: INR 1.13 (0.91-1.10); Prothrombin Time 15.2 Seconds
[2023-11-10 12:18] LABS: Albumin* 3.8 g/dL (3.3-5.0); Chloride* 93 mmol/L (96-114)
[2023-11-10 12:19] LABS: Potassium* 3.7 mmol/L (3.6-5.1); Sodium* 130 mmol/L (135-149)
[2023-11-10 12:21] LABS: Creatinine* 0.9 mg/dL (0.5-1.5); Est. Creatinine Clearance* 110.39; Estimated Glomerular Filt Rate 107 ml/min
[2023-11-10 12:22] LABS: Alanine Aminotransferase* 15 U/L (4-50); Alkaline Phosphatase* 89 U/L (40-150); Anion Gap 10 mEq/L (7-15); Aspartate Amino Transferase* 22 U/L (12-35); Bilirubin Direct* 0.5 mg/dL (0.0-0.5); Bilirubin Total* 0.6 mg/dL (0.1-1.5); Blood Urea Nitrogen* 15 mg/dL (5-24); Calcium* 7.8 mg/dL (8.4-10.6); Carbon Dioxide* 27 mmol/L (20-32); Total Protein* 7.3 g/dL (6.0-8.3)
[2023-11-10 12:25] LABS: Glucose* 380 mg/dL (60-115)
[2023-11-10 12:39] LABS: Procalcitonin* 0.83 ng/mL (<0.50)
[2023-11-10 13:01] LABS: C Reactive Protein* 31.8 mg/dL (0.5-1.0)
[2023-11-10 13:01] LABS: Appearance Urine Clear (Clear); Bilirubin Urine Negative (Negative); Blood Urine 3+ (Negative); Color Urine Yellow (Yellow); Glucose Urine 2+ (Negative); Ketones Urine Negative (Negative); Leukocyte Esterase Urine Negative (Negative); Nitrite Urine Negative (Negative); Protein Urine 3+ (Negative); Urobilinogen Urine 0.2 (0.2-1.0); pH Urine 5.5 (5.0-8.5)
[2023-11-10] MEDS: LACTATED RINGERS 1000 ML 1,000 ML IV (13:08)
[2023-11-10] MEDS: ERTAPENEM 1 GM in 0.9 % SODIUM CHLORIDE Mini-bag 100 ML IVPB (13:08)
[2023-11-10 13:26] VITALS: BP 120/60; PULSE 88; RESP 18; TEMP 38.1; O2SAT 94
[2023-11-10 13:28] LABS: Bacteria Urine Few; Squamous Epithelial Cell Urine Few (None-Few); WBC Urine 0-2 (0-5)
== END 2023-11-10 13:40 | disposition short-term general hospital (02) ==
PROVIDERS: Emergency Provider Emergency Medicine; PCP Family Medicine
DX: S91.102A Unspecified open wound of left great toe without damage to nail, initial encounter (principal); I96 Gangrene, not elsewhere classified; N50.812 Left testicular pain; N50.811 Right testicular pain
CPT/HCPCS: 36415; 73701; 74177; 76870; 80048; 80076; 81001; 83605; 84145; 84484; 85025; 85610; 86140; 87040; 87086; 93005; 93976; 96365; 99284; 99285; J1335; J7120; Q9967

== ENCOUNTER 2023-11-10 13:14 | Outpatient (CLI) | payer MEDICARE, MEDICAID, SELFPAY ==
--- OUTSIDE RECORDS SUMMARY | 2023-11-15 17:58 | XMS_ITS | Clinical Summary ---
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 1 Each 07/24/19 23 Active [...] SQUARED TOE POST OP SHOE, LARGE, REF: [id number] 1 Each 10/15/19 Active ondansetron (ZOFRAN ODT) [...] SQUARED TOE POST OP SHOE, LARGE, REF: [phone] 1 Each 12/31/19 23 Active acetaminophen (TYLENOL [...] 15 mL 11 07/28/19 24 Active sensor (edo G6 Sensor) for continuous blood glucose monitor [...] Encounters Date Type Department Care Team Description 11/10/2023 Orders Only [facility] Scanner 1 scan: (1-Ord) [facility], CT ABDOMEN PELVIS W/ CON, 11/10/2023 11/10/2023 Orders Only [facility] Scanner 1 scan: (1-Ord) [facility], US SCROTUM, 11/10/2023 11/08/2023 Orders Only [facility] Scanner 1 scan: (1-Ord) [place], FOOT LT MIN 3VW, 11/08/2023 10/27/2023 Refill [facility] [address] [place] [address] VotelJose R MD Refill Request (POVIDONE-IODINE SWABS) 10/26/2023 1:00 PM CDT Office Visit [facility] [address] [place] [address] [address] Trey Kim MD Follow Up; Medication Management (feeling, tired, it must be the weather) 10/26/2023 Travel 10/19/[address] [address] Jose R Foster MD Refill Request (Losartan) 10/14/[address] [address] Trey Kim MD Late Cancel Appointment 09/28/2023 2:00 PM CDT Office Visit [address] [address] Vini Hayden DPM Ulcer (Follow up-left great toe) 09/28/2023 Travel 09/21/2023 1:45 PM CDT Office Visit [address] [address] Vini Hayden DPM Ulcer (Left great toe) 09/21/2023 Travel 09/18/2023 Orders Only [facility] Scanner 1 scan: (1-Ord) [facility], XR FOOT LT 2V, 09/18/2023 09/16/2023 8:20 AM CDT Office Visit [address] [address] Sofía Rosales MD Toe Pain/problem (open sore on big toe x1 day, drainage) 09/16/2023 Travel 09/07/[address] [address] Jose R Foster MD Refill Request (Rosuvastatin) 08/30/2023 9:30 AM CDT Office Visit [address] [address] Trey Kim MD Follow Up 08/30/2023 Travel 08/16/[address] [address] Jose R Foster MD Refill Request (Accu-chek Guide Test Strips, Humalog Kwikpen Insulin) from Last 3 Months Immunizations Name Administration [...] Description 11/23/2023 3:20 PM CDT Office Visit [facility] [address] [place] [address] Jose R Foster MD [address] [place] [address] 01/25/2024 1:30 PM CDT Office Visit [facility] [address] [place] [address] Trey Kim MD [address] [place] [address] Health Maintenance Due Date Last Done Comments [...] Procedure Name Priority Date/Time Associated Diagnosis Comments SCAN-CT INTERPRETATION 12:00 AM CDT SCAN-ULTRASOUND REPORT 12:00 AM CDT SCAN-RADIOLOGY REPORT 11/08/2023 12:00 AM CDT AEROBIC [...] Recently Relevant to Health Maintenance Results * SCAN-ULTRASOUND REPORT (11/10/2023 12:00 AM CDT) Anatomical Region Laterality Modality Other Scanner OTHER * SCAN-CT INTERPRETATION (11/10/2023 12:00 AM CDT) Anatomical Region Laterality Modality Other Scanner OTHER * SCAN-RADIOLOGY REPORT (11/08/2023 12:00 AM CDT) Only the most recent of2 resultswithin the time period is included. Anatomical Region Laterality Modality Other Scanner OTHER * (ABNORMAL) AEROBIC BACTERIAL CULTURE, STAIN (09/21/2023 2:05 PM CDT) CULTURE RESULT(A) 09/24/2023 11:33 AM CDT [facility] CULTURE 1+ Pseudomonas aeruginosa 09/24/2023 11:33 AM CDT [facility] CULTURE 1+ Streptococcus agalactiae (Strep Group B) 09/24/2023 11:33 AM CDT [facility] CULTURE 2+ Staphylococcus aureus 09/24/2023 11:33 AM CDT [facility] CULTURE 1+ Mixed destin present 09/24/2023 11:33 AM CDT [facility] GRAM STAIN 4+ RBCs 09/24/2023 11:33 AM CDT [facility] GRAM STAIN 1+ PMNs 09/24/2023 11:33 AM CDT [facility] GRAM STAIN No Epithelial cells 09/24/2023 11:33 AM CDT [facility] GRAM STAIN 4+ Gram Positive Cocci 09/24/2023 11:33 AM CDT [facility] GRAM STAIN 2+ Gram Negative Bacilli 09/24/2023 11:33 AM CDT [facility] Other (Other) Non-Blood / Unknown 09/21/2023 [...] TRIMETHOPRIM/SULF <=0.5/9.5: S Vini Hayden DPM [facility] [address] [place] [address], * (ABNORMAL) LIPID PANEL W REFLEX MEASURED LDL (07/27/2023 2:22 PM CDT) CHOLESTEROL,TOTAL 190 100 - 199 mg/dL 07/27/2023 9:24 PM CDT [facility] [employer] Comment: Cholesterol, Total Reference Ranges Desirable <200 mg/dL Borderline 200-239 mg/dL High >=240 mg/dL TRIGLYCERIDES 340(H) <150 mg/dL 07/27/2023 9:24 PM CDT [facility] HDL CHOLESTEROL 45 >40 mg/dL 9:24 PM CDT [facility] [employer] [facility] NON-HDL CHOLESTEROL 145(H) <145 mg/dl 07/27/2023 9:24 PM CDT [facility] [employer] [facility] CHOL/HDL RATIO 4.22 <4.50 07/27/2023 9:24 PM CDT [facility] [employer] LDL CHOLESTEROL 77 <=130 mg/dL 07/27/2023 9:24 PM CDT [facility] VLDL CHOLESTEROL 68(H) <=30 mg/dL 07/27/2023 9:24 PM CDT [facility] [employer] PROVIDER ORDERED STATUS RANDOM 07/27/2023 9:24 PM CDT [facility] Blood BLOOD SPECIMEN / Unknown Venipuncture / Unknown 07/27/2023 2:22 PM CDT 07/27/2023 2:25 PM CDT Trey Kim MD CHEMISTRY [facility] [address] [place] [address], from Last 3 Months or Most Recently [...] 8:06 AM 11/08/2018 2:17 PM Care Teams Captain Waiter Relationship Specialty Start Date End Date VoteJose R roberts MD [address] [place] [id number] PCP - General Family Practice 07/23/22 Nghia Arauz MD Family Practice 12/25/10
== END 2023-11-10 13:15 | disposition home or self-care (01) ==
LOC: AMB 11-15 17:56
PROVIDERS: PCP Family Medicine; Visit Provider Emergency Medicine
DX: N50.819 Testicular pain, unspecified (principal)
CPT/HCPCS: A0425; A0427

== ENCOUNTER 2024-02-07 08:42 | Outpatient (CLI) | payer MEDICARE, MEDICAID, SELFPAY ==
--- OUTSIDE RECORDS SUMMARY | 2024-02-07 08:44 | XMS_ITS | Clinical Summary ---
Author Organization [facility] Address [address] [place] [address] Phone Care Team Providers Care [employer] Name Role Phone Unavailable Primary Care Provider Unavailabl e Source Comments [employer] is fully rolled out on [employer]. Last update 10/12/08.[facility] Allergies No known active allergies Medications * Be aware that medications may not be up to date as of this document. Always verify current medications with patient. Medication Sig Dispensed Refills Start Date End Date Status chlorhexidine (PERIDEX) 0.12% mouth/throat solutionIndication s:Gingivitis Swish and spit 15 mL by mouth daily. Indications: Gum Inflammation 11/24/2023 Active docusate sodium (COLACE) 100 mg oral capsule Take 1 capsule (100 mg) by mouth twice daily as needed for Constipation. 11/24/2023 Active hydrOXYzine pamoate (VISTARIL) 25 mg oral capsuleIndications :Pruritus Take 1-2 capsules (25-50 mg) by mouth every 6 hours as needed for Itching. Indications: Itching 11/24/2023 Active loratadine (CLARITIN) 10 mg oral tabletIndications: Seasonal Allergic Rhinitis Take 1 tablet (10 mg) by mouth daily. Indications: Hayfever 11/24/2023 Active milk of magnesia 400 mg/5 mL oral suspensionIndicati ons:Acid Indigestion Take 15 mL by mouth daily as needed for Constipation. Indications: Acid Indigestion 11/24/2023 Active paliperidone palmitate ER (INVEGA SUSTENNA) 156 mg/mL IM injectionIndicatio ns:Schizoaffective Disorder Inject 1 mL (156 mg) into a muscle every month. Indications: Schizoaffective Disorder 11/24/2023 Active acetaminophen (TYLENOL) 325 mg oral tabletIndications: Fever,Pain Take 3 tablets (975 mg) by mouth 3 times daily. Indications: Fever, Pain 11/24/2023 Active escitalopram (LEXAPRO) 20 mg oral tabletIndications: Generalized Anxiety Disorder Take 1 tablet (20 mg) by mouth at bedtime. Indications: Generalized Anxiety Disorder 11/24/2023 Active rosuvastatin (CRESTOR) 10 mg oral tabletIndications: Mixed Dyslipidemia Take 1 tablet (10 mg) by mouth at bedtime. Indications: Elevation of Both Cholesterol and Triglycerides in Blood 11/24/2023 Active traZODone (DESYREL) 50 mg oral tabletIndications: Insomnia Take 1 tablet (50 mg) by mouth at bedtime. Indications: Trouble Sleeping 11/24/2023 Active amLODIPine (NORVASC) 10 mg oral tabletIndications: Hypertension Take 1 tablet (10 mg) by mouth daily. Indications: High Blood Pressure Disorder 11/24/2023 Active bisacodyl (DULCOLAX) 10 mg rectal suppositoryIndicat ions:Constipation 1 suppository (10 mg) by Rectal route daily as needed for Constipation. Indications: Constipation 11/24/2023 Active cyclobenzaprine (FLEXERIL) 10 mg oralIndications:Mu scle Spasm Take 1 tablet (10 mg) by mouth 3 times daily. Indications: Muscle Spasm 11/24/2023 Active nicotine (NICOTROL) 14 mg/ 24hr transdermal patch 24 HRIndications:Parish hardki Dependence Apply 1 patch to skin daily. Indications: Nicotine Addiction 11/25/2023 Active nicotine polacrilex (NICORELIEF) 2 mg mouth/throat gumIndications:Jayesh otine Dependence 1 each (2 mg) by Gum route every 1 hour as needed for Nicotine Craving. Indications: Nicotine Addiction 11/24/2023 Active ondansetron (ZOFRAN) 4 mg oral TABSIndications:Na usea and Vomiting Take 1 tablet (4 mg) by mouth every 6 hours as needed for Nausea/Vomiting. Indications: Nausea and Vomiting 11/24/2023 Active polyethylene glycol 3350 (MIRALAX;GLYCOLAX) 17 g oral packetIndications: Constipation Take 17 g by mouth daily. Indications: ConstipationTake 1 capful to 17 gm zo mixed with full glass of water every day as directed. 11/25/2023 Active sennosides (SENOKOT) 17.2 mg oral TABSIndications:Fo urniers gangrene (HHS) Take 1 tablet (17.2 mg) by mouth twice daily. 11/24/2023 Active prazosin (MINIPRESS) 1 mg oral capsuleIndications :Hypertension Take 1 capsule (1 mg) by mouth at bedtime. Indications: High Blood Pressure Disorder 11/24/2023 Active insulin GLARGINE (LANTUS) 100 units/mL subcutaneous injection vialIndications:Ty pe 2 Diabetes Mellitus Inject 35 UNITS subcutaneously every twenty-four hours. Indications: Type 2 Diabetes 12/13/2023 Active insulin LISPRO (HUMALOG KWIKPEN) 100 UNIT/ML subcutaneous Kwikpen Inject 0.1 mL (10 UNITS) subcutaneously 3 times daily before meals. 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) Discharge Disposition: Discharged to home or self care 01/20/2024 9:54 AM CDT - 01/20/2024 11:59 PM CDT Hospital Encounter [facility] [address] [place] [address] David Cortes MD Routine, Hbo - Discharge Disposition: Discharged to home or self care 01/20/2024 Travel 01/19/2024 10:30 AM CDT - 01/19/2024 11:59 PM CDT Hospital Encounter [facility] [address] [place] [address] Nikolai Martinez MD Routine, Hbo - Discharge Disposition: Discharged to home or self care 01/19/2024 Travel 01/18/2024 10:06 AM CDT - 01/18/2024 11:59 PM CDT Hospital Encounter [facility] [address] [place] [phone] David Cortes MD Routine, Hbo - Discharge Disposition: Discharged to home or self care 01/18/2024 Travel 01/17/2024 9:42 AM CDT - 01/17/2024 11:59 PM CDT Hospital Encounter [facility] [address] [place] [address] Douglas Morris II, MD Routine, Hbo - Discharge Disposition: Discharged to home or self care 01/17/2024 Travel 01/12/2024 9:53 AM CDT - 01/12/2024 11:59 PM CDT Hospital Encounter [facility] [address] [place] [address] David Cortes MD Routine, Hbo - Discharge Disposition: Discharged to home or self care 01/12/2024 Travel 01/11/2024 10:01 AM CDT - 01/11/2024 11:59 PM CDT Hospital Encounter [facility] [address] [place] [phone] Nikolai Martinez MD Routine, Hbo - Discharge Disposition: Discharged to home or self care 01/11/2024 Travel 01/07/2024 10:06 AM CDT - 01/07/2024 11:59 PM CDT Hospital Encounter [facility] [address] [place] [address] Maggy Horan MD Routine, Hbo - Discharge Disposition: Discharged to home or self care 01/07/2024 Travel 01/06/2024 9:50 AM CDT - 01/06/2024 11:59 PM CDT Hospital Encounter [facility] [address] [place] [phone] David Cortes MD Routine, Hbo - Discharge Disposition: Discharged to home or self care 01/06/2024 9:40 AM CDT - 01/06/2024 11:59 PM CDT Hospital Encounter [facility] [address] [place] [address] David Cortes MD Discharge Disposition: Discharged to home or self care 01/06/2024 Travel 01/05/2024 9:32 AM CDT - 01/05/2024 11:59 PM CDT Hospital Encounter [facility] [address] [place] [address] David Cortes MD Routine, Hbo - Discharge Disposition: Discharged to home or self care 01/05/2024 Orders Only [facility] [address] [place] [address] Talita Patel MD 01/05/2024 Travel 01/04/2024 10:16 AM CDT - 01/04/2024 11:59 PM CDT Hospital Encounter [facility] [address] [place] [address] Douglas Morris II, MD Routine, Hbo - Discharge Disposition: Discharged to home or self care 01/04/2024 Travel 01/03/2024 9:33 AM CDT - 01/03/2024 11:59 PM CDT Hospital Encounter [facility] [address] [place] [phone] Narcisa Sanford MD Routine, Hbo - Discharge Disposition: Discharged to home or self care 01/03/2024 Travel 12/31/2023 1:00 PM CDT [facility] [address] [address] Suzy Patino DPM S/P foot surgery, right (Primary Dx) Discharge Disposition: Discharged to home or self care 12/31/2023 9:51 AM CDT - 12/31/2023 11:59 PM CDT Hospital Encounter [facility] [address] [address] Douglas Morris II, MD Routine, Hbo - Discharge Disposition: Discharged to home or self care 12/31/2023 Travel 12/30/2023 9:49 AM CDT - 12/30/2023 11:59 PM CDT Hospital Encounter [facility] [address] [address] David Cortes MD Routine, Hbo - Discharge Disposition: Discharged to home or self care 12/30/2023 Travel 12/29/2023 9:38 AM CDT - 12/29/2023 11:59 PM CDT Hospital Encounter [facility] [address] [address] Nikolai Martinez MD Routine, Hbo - Discharge Disposition: Discharged to home or self care 12/29/2023 Travel 12/28/2023 Telephone [facility] [address] [address] Dayanna Rodriguez RN Care Coordination (Called to discuss outpatient HBOT schedule) 12/27/2023 9:00 AM CDT Nurse Only [facility] [address] [place] [address] Suzy Patino, DPM Discharge Disposition: Discharged to home or self care 12/27/2023 Travel 12/24/2023 10:00 AM CDT [facility] [address] [place] [address] 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, SCRAPE GATHERER, CHILD AND ADOLESCENT PSYCHOLOGIST 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); Soft tissue infection Discharge Disposition: Discharged to home or self care 12/24/2023 Travel 12/23/2023 9:33 AM CDT - 12/23/2023 11:59 PM CDT Hospital Encounter [facility] [address] Nikolai Martinez MD Routine, Hbo - Discharge Disposition: Discharged to home or self care 12/23/2023 Travel 12/22/2023 9:43 AM CDT - 12/22/2023 11:59 PM CDT Hospital Encounter [facility] [address] [place] [address] Narcisa Sanford MD Routine, Hbo - Discharge Disposition: Discharged to home or self care 12/22/2023 Travel 12/20/2023 9:34 AM CDT - 12/20/2023 11:59 PM CDT Hospital Encounter [facility] [address] [place] [address] Shawn Vines MD Routine, Hbo - Discharge Disposition: Discharged to home or self care 12/20/2023 Travel 12/17/2023 1:45 PM CDT [facility] [address] [address] Suzy Patino DPM S/P foot surgery, right (Primary Dx) Discharge Disposition: Discharged to home or self care 12/17/2023 Travel 12/14/2023 Telephone [facility] Medicine [address] [place] [address] Aretha Damon MD Follow-up 12/10/2023 10:39 AM CDT Anesthesia Event OR [facility] [address] [place] [phone] Clint White MD Bojanov, Krasimir G, MD 12/10/2023 9:49 AM CDT - 12/10/2023 11:34 AM CDT Surgery OR [facility] [address] [place] [phone] Suzy Patino DPM REVISION, AMPUTATION SITE, POSSIBLE PARTIAL FOOT AMPUTATION, IRRIGATION AND DEBRIDMENT, POSSIBLE SERIAL PROCEDURES, L LOWER EXTREMITY 12/08/2023 7:35 AM CDT - 12/08/2023 9:13 AM CDT Surgery OR [facility] [address] [place] [address] Che Campos DPM PARTIAL AMPUTATION FOOT 12/08/2023 7:28 AM CDT Anesthesia Event OR [facility] [address] [place] [address] Dontae Higgins MD Bojanov, Krasimir G, MD 12/07/2023 3:48 PM CDT - 12/14/2023 12:38 PM CDT Hospital Encounter [facility] Orthopaedic [address] [place] [address] Eusebio Vivar MD Rajagopal, Shrikar S, MD Oeding, Suzy Torres, Igor Cosby MD Lawson, Clint Gomez MD Other acute osteomyelitis of left foot (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) (Primary Dx); Cellulitis of left lower extremity Discharge Disposition: Discharged to home or self care 12/07/2023 Travel 12/02/2023 Nurse Triage [facility] [address] [place] [address] Angi Aranda RN Post-op Complications 11/18/2023 Orders Only Unspecified Department [place] Unknown, Provider 11/18/2023 DEX MED HOSPITALIST SERV OR [phone] Eusebio Leon DO 11/18/2023 Orders Only Unspecified Department [place] Unknown, Provider 11/17/2023 9:01 AM CDT Anesthesia Event OR [facility] [address] [place] [address] Brady Lai MD Teslaa, Polly A RN 11/17/2023 8:34 AM CDT - 11/17/2023 9:46 AM CDT Surgery OR [facility] [address] [place] [address] Che Campos DPM AMPUTATION, TOE 11/17/2023 Orders Only Unspecified Department [place] Unknown, Provider 11/17/2023 Orders Only Unspecified Department [place] Unknown, Provider 11/15/2023 Orders Only Unspecified Department [place] Unknown, Provider 11/15/2023 Orders Only Unspecified Department [place] Unknown, Provider 11/14/2023 Orders Only Unspecified Department [place] Unknown, Provider 11/14/2023 Orders Only Unspecified Department [place] Unknown, Provider 11/14/2023 Orders Only Unspecified Department [place] Unknown, Provider 11/13/2023 Orders Only Unspecified Department [place] Unknown, Provider 11/13/2023 Orders Only Unspecified Department [place] Unknown, Provider 11/13/2023 Orders Only Unspecified Department [place] Unknown, Provider 11/12/2023 Orders Only Unspecified Department [place] Unknown, Provider 11/12/2023 Orders Only Unspecified Department [place] Unknown, Provider 11/12/2023 Orders Only Unspecified Department [place] Unknown, Provider 11/11/2023 2:34 PM CDT Anesthesia Event OR [facility] [address] [place] [address] Jatin Eckert MD Weis, Andrew S, SCRAPE GATHERER, EMERGENCY SPECIALIST 11/11/2023 2:00 PM CDT - 11/11/2023 3:54 PM CDT Surgery OR [facility] [address] [place] [address] Donovan Sloan MD IRRIGATION AND DEBRIDEMENT, PERINEAL WOUND 11/11/2023 Orders Only Unspecified Department [place] Unknown, Provider 11/11/2023 Orders Only Unspecified Department [place] Unknown, Provider 11/10/2023 4:31 PM CDT Anesthesia Event OR [facility] [address] [place] [address] Dontae Higgins MD Bradstock, Michael W, MD 11/10/2023 4:00 PM CDT - 11/10/2023 5:42 PM CDT Surgery OR [facility] [address] [place] [address] Zac Jackson MD Excisional debridement, PERINEAL NEC FASC 11/10/2023 2:28 PM CDT - 11/25/2023 12:02 PM CDT Hospital Encounter [facility] Surgery/Trauma/Chinedu ro [address] [place] [address] Jessica Madrigal MD Gayken, Jon R, MD 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[facility]) Discharge Disposition: Discharged/transd to SNF with Medicare certification 11/10/2023 Orders Only [facility] Film Room [facility] Radiology Department [address] [place] [address] Provider, Outside Referral of patient (Primary Dx) from Last 3 Months Immunizations Name Administration Dates Next Due Diphtheria and Tetanus Toxoi d - Adult (Grifols Td) 08/28/2002 Influenza Vaccine 6 Months t hrough Adult - Prefilled 02/22/2023,02/23/2022,04/19/2019 Pneumococcal Conjugate, 20-V alent Vaccine (Prevnar 20) 07/23/2022 Pneumococcal Polysaccharide, 23 Valent Vaccine(Pneumovax 23) 04/19/2019 Tetanus Toxoid, Reduced Diph theroid Toxoid Acellular Pertussis 07/17/2005 Tetanus and Diphtheria Toxoi ds Adsorbed-Td (TENIVAC) 07/23/2022 Social History Tobacco Use Types Packs/Day Years Used Date Smoking Tobacco: Unknown Tobacco Cessation:Counseling Given: Not Answered Humiliation, Afraid, Rape, and Kick questionnair e Answer Date Recorded Within the last year, have y ou been afraid of your partner or ex-partner? No 12/08/2023 Within the last year, have y ou been humiliated or emotionally abused in other ways by your partner or ex-partner? No Within the last year, have y ou been kicked, hit, slapped, or otherwise physically hurt by your partner or ex-partner? No 12/08/2023 Within the last year, have y ou been raped or forced to have any kind of sexual activity by your partner or ex-partner? No 12/08/2023 Overall Financial Resource Strain (CARDIA) Answe r Date Recorded How hard is it for you to pa y for the very basics like food, housing, medical care, and heating? Somewhat hard 12/08/2023 Hunger Vital Sign Answer Date Recorded Within the past 12 months, y ou worried that your food would run out before you got the money to buy more. Never true 12/08/19 24 Within the past 12 months, t he food you bought just didn't last and you didn't have money to get more. Never true 12/08/2023 PRAPARE - Transportation Answer Date Re corded In the past 12 months, has l ack of transportation kept you from medical appointments or from getting medications? No 11/09 In the past 12 months, has l ack of transportation kept you from meetings, work, or from getting things needed for daily living? No 12/08/2023 Housing Stability Answer Date Recorded What is your housing situation today? 3 - I have housing 12/08/2023 Sex and Gender Information Value Date Recorded Sex Assigned at Not on file Gender Identity Not on file Sexual Orientation Not on file Last Filed Vital Signs Vital Sign Reading Time Taken Comments Blood Pressure 121/87 01/20/2024 1:19 PM CDT Pulse 92 01/20/2024 1:19 PM CDT Temperature 36.2 ??C (97.2 ??F) 01/20/2024 9:00 AM CD T Respiratory Rate 15 01/20/2024 9:00 AM CDT Oxygen Saturation 95% 01/20/2024 9:00 AM CDT Inhaled Oxygen Concentration - - Weight 139.9 kg (308 lb 6.8 oz) 12/08/2023 3:00 PM CDT Height 180.3 cm (5' 11) 12/08/2023 2:00 PM CDT Body Mass Index 43.02 12/08/2023 2:00 PM CDT Plan of Treatment Health Maintenance Due Date Last Done Comments CT Colonography 1978 Colonoscopy 1978 Colorectal Cancer Screening 1978 Dental Oral Exam 1978 Dental Prophylaxis 1978 Dental X-Ray: Bitewings 1978 FIT/Cologuard 1978 Sigmoidoscopy 1978 iFOB/FIT 1978 Diabetes Education 1979 Diabetes Eye Exam 1979 Diabetes Foot Exam 1979 Diabetes Microalbumin Screening 1979 Diabetic Education Protocol (CDE) 1979 Diabetic Lab Protocol 1979 Periodontal Maintenance 02/09/1992 PREVENTATIVE VISIT 02/09/1996 HEALTH MAINTENANCE PROTOCOL 1997 Imm: HepB (1 of 3 - 19+ 3-dose series) 1997 Medicare Annual Wellness 04/09/2023 04/09/2022 Imm: COVID-19 ( season) 2024 08/19/2023, 02/22/2023 Imm: Flu (#1) 01/09/2024 02/22/2023, 02/07, 04/19/2019 Diabetes HGB A1C Q 3 Months (Goal <7) 03/09/2024 12/08/2023, 07/27/2023, 07/27/2023, Additional history exists Imm: Zoster (1 of 2) 02/09/2028 Lipid Screening 07/26/2028 07/27/2023, 02/07, 11/03/2018 Imm: DTaP/Tdap (4 - Td or Tdap) 07/23/2032 07/23/2022, 07/17/2005, 08/28/2002 Imm: Pneumonia Peds or At-Risk less than 65 years Completed 07/23/2022, 04/19/2019 HIV Screening Completed 11/15/2023 Imm: HPV Aged Out No longer eligi ble based on patient's age to complete this topic Imm: HepA Aged Out No longer eligi ble based on patient's age to complete this topic Imm: Hib Aged Out No longer eligi ble based on patient's age to complete this topic Imm: Meningitis Aged Out No longer el igible based on patient's age to complete this topic Procedures Procedure Name Priority Date/Time Associated Diagnosis Comments POC GLUCOSE Routine 01/19/2024 12:22 PM CDT POC GLUCOSE Routine 01/19/2024 9:58 AM CDT POC GLUCOSE Routine 01/17/2024 12:19 PM CDT POC GLUCOSE Routine 01/17/2024 9:59 AM CDT POC GLUCOSE Routine 01/12/2024 10:02 AM CDT POC GLUCOSE Routine 01/11/2024 10:00 AM CDT POC GLUCOSE Routine 01/07/2024 12:27 PM CDT POC GLUCOSE Routine 01/07/2024 10:20 AM CDT POC GLUCOSE Routine 01/06/2024 9:52 AM CDT HBO ANGIOGRAPHY EXTREMITY UNILATERAL Routine 01/06/2024 9:40 AM CDT POC GLUCOSE Routine 01/05/2024 9:54 AM CDT POC GLUCOSE Routine 01/04/2024 10:03 AM CDT POC GLUCOSE Routine 01/03/2024 9:50 AM CDT POC GLUCOSE Routine 12/31/2023 9:57 AM CDT POC GLUCOSE Routine 12/30/2023 9:54 AM CDT POC GLUCOSE Routine 12/29/2023 10:07 AM CDT POC GLUCOSE Routine 12/23/2023 10:27 AM CDT POC GLUCOSE Routine 12/22/2023 9:48 AM CDT HBO ANGIOGRAPHY EXTREMITY UNILATERAL Routine 12/21/2023 10:52 AM CDT POC GLUCOSE Routine 12/20/2023 12:28 PM CDT POC GLUCOSE Routine 12/20/2023 10:06 AM CDT POC GLUCOSE Routine 12/14/2023 11:29 AM CDT POC GLUCOSE Routine 12/14/2023 6:32 AM CDT POC GLUCOSE Routine 12/13/2023 9:05 PM CDT VANCOMYCIN LEVEL Timed 12/13/2023 5:24 PM CDT POC GLUCOSE Routine 12/13/2023 4:00 PM CDT POC GLUCOSE Routine 12/13/2023 11:47 AM CDT POC GLUCOSE Routine 12/13/2023 6:35 AM CDT POC GLUCOSE Routine 12/12/2023 8:54 PM CDT POC GLUCOSE Routine 12/12/2023 4:10 PM CDT POC GLUCOSE Routine 12/12/2023 11:07 AM CDT POC GLUCOSE Routine 12/12/2023 6:42 AM CDT POC GLUCOSE Routine 12/11/2023 9:10 PM CDT VANCOMYCIN LEVEL Timed 12/11/2023 5:28 PM CDT POC GLUCOSE Routine 12/11/2023 4:13 PM CDT POC GLUCOSE Routine 12/11/2023 11:43 AM CDT POC GLUCOSE Routine 12/11/2023 10:28 AM CDT POC GLUCOSE Routine 12/11/2023 6:41 AM CDT PC LAB CBC W/DIFF & PLT Routine 12/11/2023 5:50 AM CDT PANEL BASIC METABOLIC (BMP) Routine 12/11/2023 5:50 AM CDT POC GLUCOSE Routine 12/10/2023 9:03 PM CDT POC GLUCOSE Routine 12/10/2023 4:16 PM CDT XR CHEST 2 VIEWS PA + LAT* STAT 12/10/2023 1:34 PM CDT XR FOOT LEFT 3 V AP/OBL/LAT* STAT 12/10/2023 1:34 PM CDT POC GLUCOSE Routine 12/10/2023 12:09 PM CDT PC TISSUE EXAM BY PATHOLOGIST STAT 12/10/2023 11:07 AM CDT Other acute osteomyelitis of left foot ([facility]) REVISION, AMPUTATION SITE, LOWER EXTREMITY Urgent (< 48 hrs) 12/10/2023 10:23 AM CDT Other acute osteomyelitis of left foot ([facility]/HHS) POC GLUCOSE Routine 12/10/2023 6:16 AM CDT PC LAB CBC W/DIFF & PLT Routine 12/10/2023 5:06 AM CDT PANEL BASIC METABOLIC (BMP) Routine 12/10/2023 5:06 AM CDT POC GLUCOSE Routine 12/09/2023 9:18 PM CDT PANEL BASIC METABOLIC (BMP) Routine 12/09/2023 5:56 PM CDT VANCOMYCIN LEVEL Timed 12/09/2023 5:56 PM CDT POC GLUCOSE Routine 12/09/2023 4:08 PM CDT POC GLUCOSE Routine 12/09/2023 11:13 AM CDT HBO TCO2 MEASUREMENT COMPLETE Routine 12/09/2023 10:25 AM CDT HBO ANGIOGRAPHY EXTREMITY UNILATERAL Routine 12/09/2023 8:57 AM CDT POC GLUCOSE Routine 12/09/2023 6:43 AM CDT POC GLUCOSE Routine 12/08/2023 9:10 PM CDT SED RATE (ESR) Routine 12/08/2023 4:47 PM CDT PANEL BASIC METABOLIC (BMP) Routine 12/08/2023 4:47 PM CDT PC LAB GLYCOSYLATED HGB Routine 12/08/2023 4:47 PM CDT PC LAB CBC/PLT Routine 12/08/2023 4:47 PM CDT C-REACTIVE PROTEIN Routine 12/08/2023 4: 47 PM CDT POC GLUCOSE Routine 12/08/2023 4:20 PM CDT POC GLUCOSE Routine 12/08/2023 12:35 PM CDT POC GLUCOSE Routine 12/08/2023 10:02 AM CDT XR FOOT LEFT 3 V AP/OBL/LAT* STAT 12/08/2023 9:21 AM CDT POC GLUCOSE Routine 12/08/2023 8:32 AM CDT PC SURGICAL PATHOLOGY,GROSS AND MICROSCOPIC;DIAGNOSTI C STAT 12/08/2023 7:56 AM CDT Other acute osteomyelitis of left foot (CMS/HHS) PC CULTURE FUNGI ISOLATION W-WO PRESUMPTIVE ID SKIN OTH Routine 12/08/2023 7:51 AM CDT PC CULTURE SPECIMEN, ANAEROBIC Routine 12/08/2023 7:51 AM CDT PC CULTURE,BACTERIAL,DEF INITIVE,AEROBIC ANY SOURCE Routine 12/08/2023 7:51 AM CDT PC CULTURE,BACTERIAL,DEF INITIVE,AEROBIC ANY SOURCE Routine 12/08/2023 7:51 AM CDT Other acute osteomyelitis of left foot (CMS/HHS) PC CULTURE FUNGI ISOLATION W-WO PRESUMPTIVE ID SKIN OTH Routine 12/08/2023 7:51 AM CDT Other acute osteomyelitis of left foot ([facility]) PC CULTURE SPECIMEN, ANAEROBIC Routine 12/08/2023 7:51 AM CDT Other acute osteomyelitis of left foot ([facility]) POC GLUCOSE Routine 12/08/2023 7:22 AM CDT AMPUTATION FOOT Urgent (< 48 hrs) 12/08/2023 7:12 AM CDT Other acute osteomyelitis of left foot ([facility]) PC CULTURE,BACTERIAL,DEF INATIVE,AEROBIC;BLOOD STAT 12/07/2023 4:05 PM CDT EXTRA TUBE - BLUE Routine 12/07/2023 4:0 5 PM CDT TC LAB BLOOD DRAW BY VENIPUNCTURE Routine 12/07/2023 4:05 PM CDT PC ELECTROLYTES PANEL STAT 12/07/2023 4:05 PM CDT PC LAB CBC W/DIFF & PLT STAT 12/07/2023 4:05 PM CDT PC LACTATE (LACTIC ACID) STAT 12/07/2023 4:05 PM CDT C-REACTIVE PROTEIN STAT 12/07/2023 4: 05 PM CDT SED RATE (ESR) STAT 12/07/2023 4:05 PM CDT XR FOOT LEFT 3 V AP/OBL/LAT* Routine 12/07/2023 3:23 PM CDT 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[facility]) PC SMEAR, ROSAURA SOURCE, WITH INTERPRETATION (GRAM STAIN) Routine 12/07/2023 3:00 PM CDT 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[facility]) POC GLUCOSE Routine 11/25/2023 6:03 AM CDT POC GLUCOSE Routine 11/24/2023 8:47 PM CDT POC GLUCOSE Routine 11/24/2023 4:56 PM CDT POC GLUCOSE Routine 11/24/2023 11:22 AM CDT POC GLUCOSE Routine 11/24/2023 6:03 AM CDT POC GLUCOSE Routine 11/23/2023 7:52 PM CDT POC GLUCOSE Routine 11/23/2023 4:18 PM CDT POC GLUCOSE Routine 11/23/2023 11:13 AM CDT PANEL BASIC METABOLIC (BMP) Routine 11/23/2023 8:31 AM CDT TC LAB BLOOD DRAW BY VENIPUNCTURE Routine 11/23/2023 8:31 AM CDT POC GLUCOSE Routine 11/23/2023 6:43 AM CDT POC GLUCOSE Routine 11/22/2023 8:28 PM CDT POC GLUCOSE Routine 11/22/2023 4:10 PM CDT POC GLUCOSE Routine 11/22/2023 11:21 AM CDT PC LAB CYSTATIN C Routine 11/22/2023 9:2 3 AM CDT PANEL BASIC METABOLIC (BMP) Routine 11/22/2023 9:23 AM CDT TC LAB BLOOD DRAW BY VENIPUNCTURE Routine 11/22/2023 9:23 AM CDT POC GLUCOSE Routine 11/22/2023 6:55 AM CDT POC GLUCOSE Routine 11/21/2023 8:38 PM CDT POC GLUCOSE Routine 11/21/2023 4:13 PM CDT POC GLUCOSE Routine 11/21/2023 11:12 AM CDT POC GLUCOSE Routine 11/21/2023 6:08 AM CDT PANEL BASIC METABOLIC (BMP) Routine 11/21/2023 4:52 AM CDT TC LAB BLOOD DRAW BY VENIPUNCTURE Routine 11/21/2023 4:52 AM CDT POC GLUCOSE Routine 11/20/2023 9:13 PM CDT POC GLUCOSE Routine 11/20/2023 3:52 PM CDT POC GLUCOSE Routine 11/20/2023 11:16 AM CDT PANEL BASIC METABOLIC (BMP) Routine 11/20/2023 8:18 AM CDT TC LAB BLOOD DRAW BY VENIPUNCTURE Routine 11/20/2023 8:18 AM CDT POC GLUCOSE Routine 11/20/2023 8:08 AM CDT POC GLUCOSE Routine 11/20/2023 6:30 AM CDT POC GLUCOSE Routine 11/19/2023 9:03 PM CDT POC GLUCOSE Routine 11/19/2023 3:55 PM CDT POC GLUCOSE Routine 11/19/2023 12:03 PM CDT POC GLUCOSE Routine 11/19/2023 11:07 AM CDT POC GLUCOSE Routine 11/19/2023 8:51 AM CDT PANEL BASIC METABOLIC (BMP) Routine 11/19/2023 7:58 AM CDT TC LAB BLOOD DRAW BY VENIPUNCTURE Routine 11/19/2023 7:58 AM CDT POC GLUCOSE Routine 11/19/2023 6:37 AM CDT TELEMETRY STRIPS 11/18/2023 9:35 PM CDT POC GLUCOSE Routine 11/18/2023 8:54 PM CDT POC GLUCOSE Routine 11/18/2023 8:20 PM CDT POC GLUCOSE Routine 11/18/2023 4:37 PM CDT POC GLUCOSE Routine 11/18/2023 11:03 AM CDT TELEMETRY STRIPS 11/18/2023 9:21 AM CDT PANEL BASIC METABOLIC (BMP) Routine 11/18/2023 9:02 AM CDT TC LAB BLOOD DRAW BY VENIPUNCTURE Routine 11/18/2023 9:02 AM CDT POC GLUCOSE Routine 11/18/2023 6:21 AM CDT TELEMETRY STRIPS 11/17/2023 11:50 PM CDT TELEMETRY STRIPS 11/17/2023 8:33 PM CDT POC GLUCOSE Routine 11/17/2023 8:19 PM CDT POC GLUCOSE Routine 11/17/2023 4:40 PM CDT PC LAB CBC W/DIFF & PLT Timed 11/17/2023 2:35 PM CDT PANEL BASIC METABOLIC (BMP) Timed 11/17/2023 2:35 PM CDT ANTI XA ASSAY LMW HEPARIN Timed 11/17/2023 11:47 AM CDT POC GLUCOSE Routine 11/17/2023 11:25 AM CDT XR FOOT LEFT 3 V AP/OBL/LAT* STAT 11/17/2023 10:27 AM CDT POC GLUCOSE Routine 11/17/2023 10:01 AM CDT PC HOMOGENIZATION, TISSUE FOR CULTURE Routine 11/17/2023 9:35 AM CDT Foot infection PC CULTURE FUNGI ISOLATION W-WO PRESUMPTIVE ID SKIN OTH Routine 11/17/2023 9:35 AM CDT Foot infection PC CULTURE SPECIMEN, ANAEROBIC Routine 11/17/2023 9:35 AM CDT Foot infection PC CULTURE, TUBERCLE-OTHER ACID-FAST FUNMI.; ANY SOURCE Routine 11/17/2023 9:35 AM CDT Foot infection PC LAB M TUBERCULOSIS AMPLIFICATION Routine 11/17/2023 9:32 AM CDT PC CULTURE,BACTERIAL,DEF INITIVE,AEROBIC ANY SOURCE Routine 11/17/2023 9:32 AM CDT Foot infection PC CULTURE FUNGI ISOLATION W-WO PRESUMPTIVE ID SKIN OTH Routine 11/17/2023 9:32 AM CDT Foot infection PC CULTURE SPECIMEN, ANAEROBIC Routine 11/17/2023 9:32 AM CDT Foot infection PC CULTURE, TUBERCLE-OTHER ACID-FAST FUNMI.; ANY SOURCE Routine 11/17/2023 9:32 AM CDT Foot infection PC SURG PATH, W-O COMPLEX DISSECTION STAT 11/17/2023 9:31 AM CDT Foot infection POC GLUCOSE Routine 11/17/2023 9:14 AM CDT AMPUTATION, TOE Urgent (< 48 hrs) 11/17/2023 9:04 AM CDT Foot infection ULT ARTERIAL LOWER EXT LEFT Routine 11/17/2023 8:26 AM CDT POC GLUCOSE Routine 11/17/2023 6:07 AM CDT POC GLUCOSE Routine 11/16/2023 8:46 PM CDT XR FOOT LEFT 3 V AP/OBL/LAT* Routine 11/16/2023 7:20 PM CDT POC GLUCOSE Routine 11/16/2023 4:14 PM CDT POC GLUCOSE Routine 11/16/2023 10:55 AM CDT PC LAB CBC/PLT Routine 11/16/2023 8:45 AM CDT PANEL BASIC METABOLIC (BMP) Timed 11/16/2023 8:45 AM CDT POC GLUCOSE Routine 11/16/2023 7:37 AM CDT POC GLUCOSE Routine 11/15/2023 9:23 PM CDT POC GLUCOSE Routine 11/15/2023 4:18 PM CDT POC GLUCOSE Routine 11/15/2023 11:19 AM CDT TELEMETRY STRIPS 11/15/2023 8:46 AM CDT PANEL BASIC METABOLIC (BMP) Timed 11/15/2023 7:39 AM CDT CREATININE, SERUM Timed 11/15/2023 7:3 9 AM CDT PC HEPATITIS C Routine 11/15/2023 7:39 AM CDT PC HIV-1 AG W/HIV-1 & HIV-2 AB Timed 11/15/2023 7:39 AM CDT POC GLUCOSE Routine 11/15/2023 6:16 AM CDT TELEMETRY STRIPS 11/15/2023 5:20 AM CDT POC GLUCOSE Routine 11/14/2023 8:34 PM CDT TELEMETRY STRIPS 11/14/2023 5:30 PM CDT POC GLUCOSE Routine 11/14/2023 4:36 PM CDT PC PROTEIN TOTAL Routine 11/14/2023 9:58 AM CDT PC LAB COMPLETE UA Routine 11/14/2023 9: 58 AM CDT TELEMETRY STRIPS 11/14/2023 9:37 AM CDT POC GLUCOSE Routine 11/14/2023 6:14 AM CDT VANCOMYCIN LEVEL Timed 11/14/2023 5:30 AM CDT PC LAB CYSTATIN C Routine 11/14/2023 5:3 0 AM CDT PHOSPHORUS Routine 11/14/2023 5:30 AM CDT PANEL BASIC METABOLIC (BMP) Routine 11/14/2023 5:30 AM CDT MAGNESIUM Routine 11/14/2023 5:30 AM CDT TC LAB BLOOD DRAW BY VENIPUNCTURE Routine 11/14/2023 5:30 AM CDT TELEMETRY STRIPS 11/14/2023 2:37 AM CDT POC GLUCOSE Routine 11/13/2023 9:00 PM CDT POC GLUCOSE Routine 11/13/2023 4:44 PM CDT TELEMETRY STRIPS 11/13/2023 4:34 PM CDT POC GLUCOSE Routine 11/13/2023 10:56 AM CDT PC NEISSERIA GONORRHEA AMPLIFIED PROBE TECHNIQUE Routine 11/13/2023 10:45 AM CDT HEPATITIS B SURFACE ANTIGEN Routine 11/13/2023 10:20 AM CDT HEPATITIS B SURFACE ANTIBODY Routine 11/13/2023 10:20 AM CDT TELEMETRY STRIPS 11/13/2023 7:44 AM CDT POC GLUCOSE Routine 11/13/2023 6:08 AM CDT PC LAB CYSTATIN C Routine 11/13/2023 5:1 8 AM CDT VANCOMYCIN LEVEL Timed 11/13/2023 5:18 AM CDT PHOSPHORUS Routine 11/13/2023 5:18 AM CDT PANEL BASIC METABOLIC (BMP) Routine 11/13/2023 5:18 AM CDT MAGNESIUM Routine 11/13/2023 5:18 AM CDT PC LAB CBC/PLT Routine 11/13/2023 5:18 AM CDT TELEMETRY STRIPS 11/13/2023 1:52 AM CDT PC SYPHILIS SCREEN Routine 11/12/2023 11:10 PM CDT POC GLUCOSE Routine 11/12/2023 8:47 PM CDT TELEMETRY STRIPS 11/12/2023 7:58 PM CDT POC GLUCOSE Routine 11/12/2023 4:41 PM CDT VANCOMYCIN LEVEL Timed 11/12/2023 1:22 PM CDT PC LAB CYSTATIN C Routine 11/12/2023 11:36 AM CDT PHOSPHORUS Routine 11/12/2023 11:36 AM CDT PANEL BASIC METABOLIC (BMP) Routine 11/12/2023 11:36 AM CDT MAGNESIUM Routine 11/12/2023 11:36 AM CDT PC LAB CBC/PLT Routine 11/12/2023 11:36 AM CDT POC GLUCOSE Routine 11/12/2023 11:05 AM CDT POC GLUCOSE Routine 11/12/2023 10:09 AM CDT TELEMETRY STRIPS 11/12/2023 9:35 AM CDT POC GLUCOSE Routine 11/12/2023 9:04 AM CDT POC GLUCOSE Routine 11/12/2023 8:01 AM CDT POC GLUCOSE Routine 11/12/2023 7:00 AM CDT POC GLUCOSE Routine 11/12/2023 6:02 AM CDT POC GLUCOSE Routine 11/12/2023 5:00 AM CDT POC GLUCOSE Routine 11/12/2023 4:02 AM CDT TELEMETRY STRIPS 11/12/2023 3:20 AM CDT POC GLUCOSE Routine 11/12/2023 3:17 AM CDT POC GLUCOSE Routine 11/12/2023 2:14 AM CDT POC GLUCOSE Routine 11/12/2023 1:02 AM CDT POC GLUCOSE Routine 11/12/2023 12:01 AM CDT POC GLUCOSE Routine 11/11/2023 11:01 PM CDT POC GLUCOSE Routine 11/11/2023 10:00 PM CDT POC GLUCOSE Routine 11/11/2023 9:01 PM CDT POC GLUCOSE Routine 11/11/2023 8:02 PM CDT POC GLUCOSE Routine 11/11/2023 7:02 PM CDT PANEL BASIC METABOLIC (BMP) Routine 11/11/2023 6:42 PM CDT POC GLUCOSE Routine 11/11/2023 6:05 PM CDT TELEMETRY STRIPS 11/11/2023 5:48 PM CDT POC GLUCOSE Routine 11/11/2023 5:01 PM CDT POC GLUCOSE Routine 11/11/2023 3:47 PM CDT POC GLUCOSE Routine 11/11/2023 3:00 PM CDT INTUBATION Routine 11/11/2023 2:55 PM CDT IRRIGATION AND DEBRIDEMENT, WOUND Urgent (< 48 hrs) 11/11/2023 2:19 PM CDT 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HHS) POC GLUCOSE Routine 11/11/2023 2:12 PM CDT POC GLUCOSE Routine 11/11/2023 1:02 PM CDT POC GLUCOSE Routine 11/11/2023 12:01 PM CDT POC GLUCOSE Routine 11/11/2023 11:03 AM CDT POC GLUCOSE Routine 11/11/2023 9:59 AM CDT POC GLUCOSE Routine 11/11/2023 8:56 AM CDT TELEMETRY STRIPS 11/11/2023 8:32 AM CDT POC GLUCOSE Routine 11/11/2023 8:01 AM CDT PC PHOSPHORUS INORGANIC(PHOSPHATE) Routine 11/11/2023 5:36 AM CDT PC MAGNESIUM, SERUM Routine 11/11/2023 5 :36 AM CDT TC LAB BLOOD DRAW BY VENIPUNCTURE Routine 11/11/2023 5:36 AM CDT PC BASIC MET PANEL Routine 11/11/2023 5: 36 AM CDT POC GLUCOSE Routine 11/11/2023 5:28 AM CDT POC GLUCOSE Routine 11/11/2023 4:29 AM CDT POC GLUCOSE Routine 11/11/2023 3:28 AM CDT POC GLUCOSE Routine 11/11/2023 2:18 AM CDT POC GLUCOSE Routine 11/11/2023 1:03 AM CDT POC GLUCOSE Routine 11/10/2023 11:50 PM CDT LUNG AIRWAY CLEARANCE EXPANSION PROTOCOL Routine 11/10/2023 11:44 PM CDT POC GLUCOSE Routine 11/10/2023 10:39 PM CDT PC TROPONIN QUANTITATIVE Timed 11/10/2023 10:15 PM CDT POC GLUCOSE Routine 11/10/2023 9:36 PM CDT POC GLUCOSE Routine 11/10/2023 8:17 PM CDT POC GLUCOSE Routine 11/10/2023 7:07 PM CDT PC TROPONIN QUANTITATIVE Timed 11/10/2023 6:34 PM CDT PC LACTATE (LACTIC ACID) Timed 11/10/2023 6:34 PM CDT POC GLUCOSE Routine 11/10/2023 6:07 PM CDT POC GLUCOSE Routine 11/10/2023 5:30 PM CDT PC LAB M TUBERCULOSIS AMPLIFICATION Routine 11/10/2023 5:13 PM CDT PC CULTURE,BACTERIAL,DEF INITIVE,AEROBIC ANY SOURCE Routine 11/10/2023 5:13 PM CDT 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[facility]) PC CULTURE FUNGI ISOLATION W-WO PRESUMPTIVE ID SKIN OTH Routine 11/10/2023 5:13 PM CDT 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[facility]) PC CULTURE SPECIMEN, ANAEROBIC Routine 11/10/2023 5:13 PM CDT 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[facility]) PC CULTURE, TUBERCLE-OTHER ACID-FAST FUNMI.; ANY SOURCE Routine 11/10/2023 5:13 PM CDT 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[facility]) PC CULTURE,BACTERIAL,DEF INITIVE,AEROBIC ANY SOURCE Routine 11/10/2023 5:12 PM CDT 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[facility]) PC CULTURE FUNGI ISOLATION W-WO PRESUMPTIVE ID SKIN OTH Routine 11/10/2023 5:12 PM CDT 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[facility]) PC CULTURE SPECIMEN, ANAEROBIC Routine 11/10/2023 5:12 PM CDT 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[facility]) INTUBATION Routine 11/10/2023 4:46 PM CDT POC GLUCOSE Routine 11/10/2023 4:28 PM CDT IRRIGATION AND DEBRIDEMENT, WOUND Emergent (NATHALIE) 11/10/2023 4:16 PM CDT 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[facility]) ED EKG (12-LEAD) Routine 11/10/2023 3:[address] OUTSIDE READ MSK/NON NEURO STAT 11/10/2023 3:[address] OUTSIDE READ ABD/PELV STAT 11/10/2023 3:07 PM CDT TC LAB ER STAT URINALYSIS STAT 11/10/2023 2:40 PM CDT PC CULTURE,BACTERIAL,DEF INATIVE,AEROBIC;BLOOD STAT 11/10/2023 2:39 PM CDT PC CULTURE,BACTERIAL,DEF INATIVE,AEROBIC;BLOOD STAT 11/10/2023 2:37 PM CDT SED RATE (ESR) STAT 11/10/2023 2:31 PM CDT EXTRA TUBE - SST Routine 11/10/2023 2:31 PM CDT PC TROPONIN QUANTITATIVE STAT 11/10/2023 2:31 PM CDT ETHANOL (ETOH) LEVEL, BLOOD STAT 11/10/2023 2:31 PM CDT PC LAB PTT STAT 11/10/2023 2:31 PM CDT PC LAB ED INR STAT 11/10/2023 2:31 PM CDT PC LACTATE (LACTIC ACID) STAT 11/10/2023 2:31 PM CDT FIBRINOGEN STAT 11/10/2023 2:31 PM CDT PANEL HEPATIC FUNCTION STAT 11/10/2023 2:31 PM CDT TC LAB ER STAT TOTAL HGB STAT 11/10/2023 2:31 PM CDT PC ELECTROLYTES PANEL STAT 11/10/2023 2:31 PM CDT PC LAB CBC W/DIFF & PLT STAT 11/10/2023 2:31 PM CDT PC GASES,BLOOD,ANY COMB OF PH,PCD2,PO2,CO2,HCO2 STAT 11/10/2023 2:31 PM CDT PC ANTIBODY SCREEN,RBC,EACH SERUM TECHNIQUE STAT 11/10/2023 2:29 PM CDT PC LAB RH TYPE GEL STAT 11/10/2023 2: 29 PM CDT PRECAUTIONARY TUBE STAT 11/10/2023 2: 29 PM CDT ED US CRITICAL CARE STAT 11/10/2023 2 :28 PM CDT ULT ABDOMEN/PELVIS OUTSIDE FILMS Routine 11/10/2023 10:46 AM CDT Referral of patient from Last 3 Months Results * (ABNORMAL) POC GLUCOSE (01/19/2024 12:22 PM CDT) Only the most recent of145 resultswithin the time period is included. POC Glucose 323(H) 70 - 100 mg/dL [facility] - POINT OF CARE Blood 01/19/2024 12:2 2 PM CDT Nikolai Martinez MD LABORATORY [facility] - POINT [facility] [place] [address], * HBO ANGIOGRAPHY EXTREMITY UNILATERAL (01/06/2024 9:40 AM CDT) Only the most recent of3 resultswithin the time period is included. Anatomical Region Laterality Modality External-Camera Photography Narrative 01/06/2024 6:05 PM CDT Indication: ??non-healing diabetic foot ulcer and failure of post-surgical wound healing Procedure Description: A peripheral IV was started on the patient prior to the injection of the ICG dye. ??A still photo of the target was taken for future reference. A time-out was done before starting. ??We then injected the ICG dye followed by a saline flush. We obtained images at 15 frames per second and captured the ingress and egress of ICG dye to the target area. Stephanie Low is a 43 y.o. 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 ?? Microangiography study was requested to monitor healing progress. Area of focus was left foot. Ingress: Time from ICG injection to First Blush: 19 seconds Time to first blush was appropriate. Max Intensity: No areas of hypo or hyperfluorescence Panning: Adequate perfusion to remainder of foot including remaining toes and plantar surface Impression: No overt ischemia noted. No inflammatory changes noted. Normal perfusion throughout studied areas. Previous study was reviewed. ??Comparison showed improved appearance, minor areas of prior hyperfluorescence in the derick-wound area have resolved. ?? Wound is healing nicely. David Cortes MD, 01/06/2024 6:00 PM David Cortes MD RAD ULT * VANCOMYCIN LEVEL (12/13/2023 5:24 PM CDT) Only the most recent of6 resultswithin the time period is included. Vancomycin 17.0 mcg/mL [facility] Comment:Expected Range (Trou gh): 10-20 mcg/ml Blood 12/13/2023 5:24 PM CDT 12/13/2023 5:46 PM CDT Narrative [facility] - 12/13/2023 6:34 PM CDT Please ensure trough level drawn prior to next vancomycin dose. Thank you Peak or trough:->Trough Eusebio Perez PharmD LABORATORY [facility] [address] [address] * (ABNORMAL) CBC WITH PLTS/AUTO DIFF (12/11/2023 5:50 AM CDT) Only the most recent of8 resultswithin the time period is included. [facility] WBC 8.72 4.00 - 10.00 k/cmm [facility] RBC 3.82(L) 4.60 - 6.00 m/cmm [facility] Hgb 10.6(L) 13.1 - 17.5 g/dL [facility] Hematocrit 32.4(L) 40.0 - 51.0 % [facility] MCV 84.8 80.0 - 100.0 fL [facility] MCH 27.7 25.0 - 32.0 pg [facility] MCHC 32.7 31.0 - 36.0 g/dL [facility] RDW 13.5 11.5 - 14.5 % [facility] Plt 400 150 - 400 k/cmm [facility] MPV 9.3 6.5 - 12.5 fL [facility] Automated Abs Neutrophil 4.22 1.70 - 6.50 k/cmm [facility] Comment:Preliminary ANC, Fin al Result to Follow Abs Immature Granulocyte 0.09 0.00 - 0.09 k/cmm [facility] Comment:The Immature Granulo cyte Absolute count contains metamyelocytes and myelocytes. Abs Neutrophil 4.22 1.70 - 6.50 k/cmm [facility] Abs Lymphocyte 2.59 0.80 - 4.00 k/cmm [facility] Abs Monocyte 1.00 0.20 - 1.00 k/cmm [facility] Abs Eosinophil 0.79(H) 0.00 - 0.60 k/cmm [facility] Abs Basophil 0.03 0.00 - 0.20 k/cmm [facility] Blood 12/11/2023 5:50 AM CDT 12/11/2023 6:26 AM CDT Igor Glover MD LABORATORY Performing Organization Address City/[facility]/ZIP Co de Phone Number [facility] [address] [address] * (ABNORMAL) PANEL BASIC METABOLIC (BMP) (12/11/2023 5:50 AM CDT) Only the most recent of17 resultswithin the time period is included. CO2 25 22 - 30 mmol/L [facility] Glucose 178(H) 70 - 100 mg/dL [facility] BUN 9 6 - 20 mg/dL [facility] Creatinine 0.92 0.70 - 1.25 mg/dL [facility] Calcium 9.0 8.6 - 10.0 mg/dL [facility] Sodium 136 135 - 148 mmol/L [facility] Potassium 4.1 3.5 - 5.3 mmol/L [facility] Chloride 100 92 - 108 mmol/L [facility] eGFR (2020 CKD-EPI) 105 >=60 ml/min/1.7 3m2 [facility] Comment: The estimated glomerular filtration rate (eGFR) was calculated using the CKD-EPI 2020 creatinine equation, which does not include race as a factor. This equation is validated in individuals 18 years of age and older, and eGFR is normalized to a body surface area of 1.73m^2. AnGap 11 8 - 16 mmol/L [facility] Blood 12/11/2023 5:50 AM CDT 12/11/2023 6:25 AM CDT Igor Glover MD LABORATORY Performing Organization Address City/[facility]/ZIP Co de Phone Number [facility] [address] [address] * XR CHEST 2 VIEWS PA + LAT* (12/10/2023 1:34 PM CDT) Anatomical Region Laterality Modality Chest Computed Radiogr aphy 12/10/2023 1:38 PM CDT Impressions 12/10/2023 1:39 PM CDT IMPRESSION: No focal consolidation. Reading Radiologist: Jose Robledo Narrative 12/10/2023 1:39 PM CDT Indication: HBO consult Comparison: None FINDINGS: Cardiac silhouette is normal in size. No focal consolidation, pleural effusion, or pneumothorax. Procedure Note Jose Robledo MD - 12/10/2023 Indication: HBO consult Comparison: None FINDINGS: Cardiac silhouette is normal in size. No focal consolidation,pleural effusion, or pneumothorax. IMPRESSION IMPRESSION: No focal consolidation. Reading Radiologist: Jose Robledo Igor Glover MD RAD XRAY * XR FOOT LEFT 3 V AP/OBL/LAT* (12/10/2023 1:34 PM CDT) Only the most recent of5 resultswithin the time period is included. Anatomical Region Laterality Modality Foot Computed Radiogr aphy 12/10/2023 1:36 PM CDT Impressions 12/10/2023 1:38 PM CDT IMPRESSION: Postsurgical changes from amputation of the first metatarsal bone to the level of the mid metatarsal bone. Reading Radiologist: Jose Robledo Narrative 12/10/2023 1:38 PM CDT Indication: s/p met amp ?? Comparison: X-ray 12/08/2023 FINDINGS: Postsurgical changes from amputation of the first metatarsal bone to the level of the mid metatarsal bone. Chronic osseous deformities of the second metatarsal head and the third metatarsal head with evidence of arthritis at the third MTP joint. Moderate osteoarthritis throughout the midfoot. Procedure Note Jose Robledo MD - 12/10/2023 Indication: s/p met amp Comparison: X-ray 12/08/2023 FINDINGS: Postsurgical changes from amputation of the first metatarsalbone to the level of the mid metatarsal bone. Chronic osseous deformitiesof the second metatarsal head and the third metatarsal head with evidenceof arthritis at the third MTP joint. Moderate osteoarthritis throughoutthe midfoot. IMPRESSION IMPRESSION: Postsurgical changes from amputation of the first metatarsalbone to the level of the mid metatarsal bone. Reading Radiologist: Jose Robledo Igor Glover MD RAD XRAY * SURGICAL PATHOLOGY (12/10/2023 11:07 AM CDT) Only the most recent of3 resultswithin the time period is included. SURG PATH FINAL ?Surgical Pathology Report Collection Date: ?12/10/2023 11:07 CDT ? Ordering Physician: ? SUZY PATINO Received Date: ?12/10/2023 12:07 CDT ? Accession Number: ? [id number] ? Surgical Pathology Final Report Specimen Type: Bone, 1st metatarsal left foot, biopsy Final Diagnosis: Bone, 1st metatarsal left foot, biopsy - Benign bone. Negative for osteomyelitis. * ??Report Electronically Signed By ??* ?? Greg Regalado MD ?? 12.14.2023 10:24 Clinical History: Clinical Diagnosis: Other acute osteomyelitis of left DDB/DDB 12.10.2023 13:39 Gross Description: The specimen is received in formalin, labeled with the patient's name and hospital ID number. The specimen is designated first metatarsal left foot, foot margin and consists of a 0.9 cm in length by 1.5 cm in diameter portion of trabeculated bone with a smooth resection margin; inked green. ??The specimen is bisected and entirely submitted 2 cassettes labeled A1-A2 to include resection margin en face in cassette A1. (DDB) DDB/DDB 12.10.2023 13:39 Microscopic Description: Microscopic examination performed and findings are reflected in the final diagnosis. I personally examined the relevant preparations and rendered and confirmed the diagnosis. ? Signed - Greg Linzie, M.D. Attending Pathologist. DDB/FRACISCO 12.10.2023 13:39 [facility] AP Specimen FOOT STRUCTURE / Unknown 12/10/2023 11:07 AM CDT Comment:OR: Routine gross an d microscopic examination Tissue: 1st metatarsel left foot, cut margin Site: foot Additional clinical information: Suzy Patino [facility] PATHOLOGY [facility] [address] [address] * HBO TCO2 MEASUREMENT COMPLETE (12/09/2023 10:25 AM CDT) Anatomical Region Laterality Modality Other Narrative 12/09/2023 12:55 PM CDT Images from the original result were not included. By: David Cortes MD Stephanie Low is a 43 y.o. 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 TCO2 measurements were requested to assess his baseline microangiopathic disease status and wound healing capability and for surgical planning purposes. Measurements were obtained on the LEFT LE with distal measurements obtained on the dorsum of the foot at the base of the 1st/2nd toes, medially at the midfoot at the midfoot and below the knee bilaterally. ?? Measurements were obtained on room air and with normobaric oxygen challenge. All measurements indicate adequate or normal wound healing capability with an appropriate response to normobaric oxygen. TCO2 ??in Clinical Decision Making* TCO2 while ??breathing air is helpful to predict failure to heal spontaneously. TCO2 while breathing normobaric air : ?>50 ?normal wound healing capability ?>40 ?adequate wound healing capability ? 30 ??- ??40 ? marginal impairment of healing capability ? 20 ??- ??30 ? moderate impairment of healing capability ? 10 ??- ??20 ? marked impairment of healing capability ? 0 ?- ??10 ? severe impairment of wound healing capability ?TCO2 while breathing normobaric 100% oxygen is helpful to predict healing with HBO. (Accuracy 70%: right prediction 70% of time, wrong prediction 30%.) TCO2 while breathing normobaric 100% oxygen >100 ? normal ? > 35 ? likely to heal with HBOT TCO2 breathing hyperbaric oxygen is helpful to predict failure to heal with HBO. (Accuracy 75%: right prediction 75% of the time, wrong prediction 25%) TCO2 while breathing hyperbaric oxygen < 200 ?likely to fail healing with HBOT Note: ??Based on data for diabetics without renal failure. Diabetics with renal failure do less well. *References: Bridget QUIÑONEZ et al. Wound Rep Reg 2002; 10:198-207. Bridget QUIÑONEZ et al. [facility] 2009, Vol. 36(1). ? [place] 07/27/13 Suzy Shafer PA-C HYPERBARIC CHAMBE R * (ABNORMAL) SED RATE (ESR) (12/08/2023 4:47 PM CDT) Only the most recent of3 resultswithin the time period is included. Sed Rate 120(H) 2 - 10 mm/hr [facility] Blood 12/08/2023 4:47 PM CDT 12/08/2023 5:07 PM CDT Suzy Shafer PA-C LABORATORY [facility] [address] [address] * (ABNORMAL) GLYCOSYLATED HGB - A1C (12/08/2023 4:47 PM CDT) Hemoglobin A1C 8.5(H) 4.0 - 5.6 % [facility] Comment: Increased risk for diabetes (prediabetes): 5.7-6.4% Diabetes >=6.5% In the absence of unequivocal hyperglycemia, diagnosis requires two abnormal test results (i.e. HbA1c and glucose) or two abnormal results from specimens collected at two different timepoints. The presence of some hemoglobin variants or red cell disorders may interfere with the measurement of hemoglobin A1c (HbA1c). Estimated Average Glucose 197(H) 68 - 114 [facility] Comment: The estimated Average Glucose (eAG) was calculated using an equation derived from a study of 507 adults with type 1, type 2, or no diabetes. Minority populations were underrepresented and children were not included. The eAG is not equivalent to a fasting glucose concentration. Blood 12/08/2023 4:47 PM CDT 12/08/2023 5:07 PM CDT Narrative [facility] - 12/08/2023 6:01 PM CDT If not done in the last 30 days. Suzy Shafer PA-C LABORATORY Performing Organization Address City/[facility]/ZIP Co de Phone Number [facility] [address] [address] * (ABNORMAL) C-REACTIVE PROTEIN (12/08/2023 4:47 PM CDT) Only the most recent of2 resultswithin the time period is included. C-Reactive Protein 77(H) <=4 mg/L [facility] Blood 12/08/2023 4:47 PM CDT 12/08/2023 5:07 PM CDT Suzy Shafer PA-C LABORATORY Performing Organization Address [facility] Co de Phone Number [facility] [address] [address] * (ABNORMAL) CBC WITH PLATELET (12/08/2023 4:47 PM CDT) Only the most recent of8 resultswithin the time period is included. WBC 10.39(H) 4.00 - 10.00 k/cmm [facility] RBC 3.59(L) 4.60 - 6.00 m/cmm [facility] Hgb 9.8(L) 13.1 - 17.5 g/dL [facility] Hematocrit 30.8(L) 40.0 - 51.0 % [facility] MCV 85.8 80.0 - 100.0 fL [facility] MCH 27.3 25.0 - 32.0 pg [facility] MCHC 31.8 31.0 - 36.0 g/dL [facility] RDW 13.5 11.5 - 14.5 % [facility] Plt 314 150 - 400 k/cmm [facility] MPV 9.3 6.5 - 12.5 fL [facility] Blood 12/08/2023 4:47 PM CDT 12/08/2023 5:07 PM CDT Suzy Shafer PA-C LABORATORY Performing Organization Address [facility] Co de Phone Number [facility] [address] [address] * (ABNORMAL) TISSUE CULTURE:INCLUDES GRAM STAIN (12/08/2023 7:51 AM CDT) Only the most recent of5 resultswithin the time period is included. Final Report Positive Culture Few METHICILLIN RESISTANT Staphylococcus aureus (MRSA) isolated. 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 For susceptibility, see previous report on culture from wound culture collected 12/07/23. (POS) [facility] Organism METHICILLIN RESISTANT STAPHYLOCOCCUS AUREUS (MRSA)(POS) [facility] Gram Stain Report Corrected Report Positive Gram stain Rare PMN's seen. Rare gram positive cocci. Gram stain electronically reported to and acknowledged by: Dr. Healy Marker from OR at ??12/08/2023 10:09:09 by Jacklyn Easley MLS. Removed Pleomorphic gram variable bacilli from report. Results electronically reported to and acknowledged by: [facility] Glover [facility] [place] 12/09/2023 12:48:27. Elizabeth Schwartz MLS. (POS) [facility] Bone STRUCTURE OF LEFT FOOT / Unknown 12/08/2023 7:51 AM CDT 12/08/2023 9:00 AM CDT Comment:2. Bone first metata rsal left foot Che Campos DPM LAB MICROBIOLOGY Performing Organization Address [facility] Co de Phone Number [facility] [address] [address] * FUNGUS CULTURE:INCLUDES SUHAS (12/08/2023 7:51 AM CDT) Only the most recent of6 resultswithin the time period is included. Final Report No fungus isolated. [facility] SUHAS Prep No fungal elements seen. [facility] Bone STRUCTURE OF LEFT FOOT / Unknown 12/08/2023 7:51 AM CDT 12/08/2023 9:00 AM CDT Comment:2. Bone first metata rsal left foot Che Torres Beth [facility] LAB MICROBIOLOGY Performing Organization Address [facility] de Phone Number [facility] [address] [address] * ANAEROBE CULTURE (12/08/2023 7:51 AM CDT) Only the most recent of6 resultswithin the time period is included. Final Report No anaerobes isolated. [facility] Bone STRUCTURE OF LEFT FOOT / Unknown 12/08/2023 7:51 AM CDT 12/08/2023 9:00 AM CDT Comment:2. Bone first metata rsal left foot Che Campos [facility] LAB MICROBIOLOGY Performing Organization Address [facility] de Phone Number [facility] [address] [address] * EXTRA TUBE - DARK GREEN (12/07/2023 4:05 PM CDT) DARK GREEN TUBE Stored [facility] Comment:Dark Green tubes (Li thium Heparin) are stored in the lab for 1 day from the collection date. Blood 12/07/2023 4:05 PM CDT 12/07/2023 4:24 PM CDT Eusebio Vivar MD LABORATORY Performing Organization Address [facility] Co de Phone Number [facility] [address] [address] * EXTRA TUBE - BLUE (12/07/2023 4:05 PM CDT) BLUE TUBE [facility] Comment:Blue top(Sodium citr ate) tubes are kept for 3 days from the collection date. Blood 12/07/2023 4:05 PM CDT 12/07/2023 4:24 PM CDT Eusebio Vivar MD LABORATORY [facility] [address] [address] * (ABNORMAL) ED CHEMISTRY LABS(NA,K,CL,CO2,GLU,CREAT,CA-IONIZED,ANION GAP) (12/07/2023 4:05 PM CDT) Only the most recent of2 resultswithin the time period is included. Sodium 139 135 - 148 mmol/L [facility] Chloride 97 92 - 108 mmol/L [facility] AnGap 15 8 - 16 mmol/L [facility] Glucose 284(H) 70 - 100 mg/dL [facility] ICA, Actual 4.89 4.40 - 5.20 mg/dL [facility] ICA, pH Corrected 4.74 4.40 - 5.20 mg/dL [facility] Creatinine 1.26(H) 0.70 - 1.25 mg/dL [facility] BICARB 26 22 - 26 mEq/L [facility] eGFR (2020 CKD-EPI) 72 >=60 ml/min/1.7 3m2 [facility] Comment: The estimated glomerular filtration rate (eGFR) was calculated using the CKD-EPI 2020 creatinine equation, which does not include race as a factor. This equation is validated in individuals 18 years of age and older, and eGFR is normalized to a body surface area of 1.73m^2. Potassium 4.5 3.5 - 5.3 mmol/L [facility] Blood 12/07/2023 4:05 PM CDT 12/07/2023 4:27 PM CDT Eusebio Vivar MD LABORATORY [facility] [address] [address] * LACTATE (LACTIC ACID) (12/07/2023 4:05 PM CDT) Only the most recent of3 resultswithin the time period is included. Lactate 2.1 0.7 - 2.1 mmol/L [facility] Blood 12/07/2023 4:05 PM CDT 12/07/2023 4:27 PM CDT Narrative [facility] - 12/07/2023 4:27 PM CDT Send specimen on ice! Eusebio Vivar MD LABORATORY Performing Organization Address [facility] Co de Phone Number [address] [address] * BLOOD AEROBIC/ANAEROBIC CULTURE (12/07/2023 4:05 PM CDT) Only the most recent of3 resultswithin the time period is included. Final Report No growth after 5 days. [facility] Blood (Peripheral) 12/07/2023 4:05 PM CDT 12/07/2023 7:55 PM CDT Eusebio Vivar MD LAB MICROBIOLOGY Performing Organization Address [facility] de Phone Number [address] [address] * (ABNORMAL) WOUND CULTURE:GRAM STAIN OPTIONAL (12/07/2023 3:00 PM CDT) Only the most recent of2 resultswithin the time period is included. Final Report Rare METHICILLIN RESISTANT Staphylococcus aureus (MRSA) isolated. 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 Rare Corynebacterium striatum group isolated. A member of the diphtheroid bacilli. (POS) [facility] Organism METHICILLIN RESISTANT STAPHYLOCOCCUS AUREUS (MRSA)(POS) [facility] Organism CORYNEBACTERIUM STRIATUM GROUP(POS) [facility] Gram Stain Report No PMN's seen. No organisms seen. [facility] Swab STRUCTURE OF LEFT FOOT / Unknown 12/07/2023 3:00 PM CDT 12/07/2023 5:23 PM CDT Narrative [facility] - 12/10/2023 10:38 AM CDT Left hallux Do you want a gram stain: Yes Organism Antibiotic Method Susceptibility Methicillin-Resistant Staphylococcus aureus (MRSA) Clindamycin MICROSCAN JORDY >4: Resistant Methicillin-Resistant Staphylococcus aureus (MRSA) Daptomycin MICROSCAN JORDY 1: Sensitive Methicillin-Resistant Staphylococcus aureus (MRSA) Levofloxacin MICROSCAN JORDY >4: Resistant Methicillin-Resistant Staphylococcus aureus (MRSA) Linezolid MICROSCAN JORDY 2: Sensitive Methicillin-Resistant Staphylococcus aureus (MRSA) Oxacillin MICROSCAN JORDY >2: Resistant Methicillin-Resistant Staphylococcus aureus (MRSA) Tetracycline MICROSCAN JORDY <=4: Sensitive Methicillin-Resistant Staphylococcus aureus (MRSA) Trimethoprim/Sulfametho xazole MICROSCAN JORDY <=0.5/9.5: Sensitive Methicillin-Resistant Staphylococcus aureus (MRSA) Vancomycin MICROSCAN JORDY 1: Sensitive Che DOWNINGM LAB MICROBIOLOGY Performing Organization Address [facility]/ZIP Co de Phone Number [facility] [address] [address] * (ABNORMAL) CYSTATIN C (11/22/2023 9:23 AM CDT) Only the most recent of4 resultswithin the time period is included. Cystatin C 1.43(H) 0.61 - 0.95 mg/L [facility] eGFR by Cystatin C 51(L) >=60 ml/min/1.7 3m2 [facility] Comment: Estimated GFR calculated using the CKD-EPI Cystatin C (2012) equation. Stage ? Description ?eGFR Range ??1.......Normal or increased eGFR.......90 or Greater ??2.......Mildly decreased eGFR..........60-89 ??3.......Moderately decreased eGFR......30-59 ??4.......Severely decreased eGFR........15-29 ??5.......Kidney Failure.................Less than 15 Blood 11/22/2023 9:23 AM CDT 11/22/2023 2:05 PM CDT Zac Jackson MD LABORATORY Performing Organization Address City/[facility]/ZIP Co de Phone Number [facility] [address] [address] * TELEMETRY STRIPS (11/18/2023 9:35 PM CDT) Only the most recent of17 resultswithin the time period is included. Narrative 11/18/2023 9:35 PM CDT Ordered by an unspecified provider. Provider Unknown RAD ECHO * ANTI XA ASSAY LMW HEPARIN (11/17/2023 11:47 AM CDT) Anti XA LMW <0.04 IU/mL [facility] Comment: Anti Xa Assay LMW Heparin Therapeutic Ranges: 0.4-1.1 IU/mL for twice daily 1.0-2.0 IU/mL for once daily Blood 11/17/2023 11:4 7 AM CDT 11/17/2023 12:01 PM CDT Zac Jackson MD LABORATORY Performing Organization Address [facility] Co de Phone Number [facility] [address] [address] * AFB CULTURE:INCLUDES AFB SMEAR (11/17/2023 9:35 AM CDT) Only the most recent of3 resultswithin the time period is included. Final Report No acid fast bacilli isolated. [facility] Acid Fast Stain No acid fast bacilli seen. [facility] Tissue TOE STRUCTURE / Unknown 11/17/2023 9:35 AM CDT Che Campos DPM LAB MICROBIOLOGY Performing Organization Address [facility] Co de Phone Number [facility] [address] [address] * M TUBERCULOSIS AMPLIFICATION (11/17/2023 9:32 AM CDT) Only the most recent of2 resultswithin the time period is included. Final Report M. tuberculosis complex DNA not detected. [facility] Tissue TOE STRUCTURE / Unknown 11/17/2023 9:32 AM CDT 11/18/2023 9:56 AM CDT Comment:1: Left hallux soft tissue dirty Narrative [facility] - 11/18/2023 2:41 PM CDT This assay uses PCR nucleic acid amplification to detect Mycobacterium tuberculosis complex DNA. ??This test was developed and its performance characteristics determined by [facility]. ??It has not been cleared or approved by the U.S. Food and Drug Administration. ??FDA does not require this test to go through premarket FDA review. ??This test is used for clinical purposes. ??It should not be regarded as investigational or for research. ??[facility] is certified under the Clinical Laboratory Improvement Amendments of 1988 (CLIA) as qualified to perform high complexity clinical laboratory testing. Che Campos [facility] MICROBIOLOGY [facility] [address] [address] * ULT ARTERIAL LOWER EXTREMITY LEFT (11/17/2023 8:26 AM CDT) Anatomical Region Laterality Modality Upper Leg Ultrasound 11/17/2023 8:25 AM CDT Impressions 11/17/2023 10:02 AM CDT IMPRESSION: 1. No evidence for inflow disease. 2. Transition to monophasic waveforms within the below-knee vessels with a sharp upstroke. I suspect that this is secondary to a hyperemic state, however mild below knee peripheral arterial disease cannot be completely excluded. I have personally reviewed the image(s) and initial interpretation, and I agree with the findings as documented by the resident/fellow. Reading Radiologist: Praful Woodson Reading Resident: Doulgas Baldwin Narrative 11/17/2023 10:02 AM CDT EXAM: Bilateral* Lower Extremity Arterial Doppler Ultrasound 11/17/2023 8:26 AM INDICATION: ischemic toe ??. COMPARISON: None. TECHNIQUE: Greyscale imaging, color and spectral Doppler interrogation utilized for evaluation of arterial waveforms in the left lower extremity. FINDINGS: All velocities in this report are in centimeters/seconds. The left external iliac artery demonstrates triphasic waveforms with normal velocities. The common femoral artery is patent. The superficial femoral artery demonstrates triphasic waveforms with normal velocities. The popliteal artery is patent with triphasic waveforms with a sharp upstroke. Transition to monophasic waveforms with a relatively sharp upstroke noted within the distal posterior tibial, anterior tibial and peroneal arteries. Triphasic waveform noted within the distal peroneal artery. Procedure Note Praful Woodson MBBS - 11/17/2023 EXAM: Bilateral* Lower Extremity Arterial Doppler Ultrasound 48:26 AM INDICATION: ischemic toe . COMPARISON: None. TECHNIQUE: Greyscale imaging, color and spectral Doppler interrogationutilized for evaluation of arterial waveforms in the left lower extremity. FINDINGS: All velocities in this report are in centimeters/seconds. The left external iliac artery demonstrates triphasic waveforms withnormal velocities. The common femoral artery is patent. The superficialfemoral artery demonstrates triphasic waveforms with normal velocities.The popliteal artery is patent with triphasic waveforms with a sharpupstroke. Transition to monophasic waveforms with a relatively sharpupstroke noted within the distal posterior tibial, anterior tibial andperoneal arteries. Triphasic waveform noted within the distal peronealartery. IMPRESSION IMPRESSION: 1. No evidence for inflow disease. 2. Transition to monophasic waveforms within the below-knee vessels with asharp upstroke. I suspect that this is secondary to a hyperemic state,however mild below knee peripheral arterial disease cannot be completelyexcluded. I have personally reviewed the image(s) and initial interpretation, and Iagree with the findings as documented by the resident/fellow. Reading Radiologist: Praful Woodson Reading Resident: Douglas Baldwin Zac Jackson MD RAD ULT * HEPATITIS C ANTIBODY WITH CONDITIONAL PCR (11/15/2023 7:39 AM CDT) Hep C Lilly Nonreactive Nonreactive [facility] Comment:Performance characte ristics have not been established with this test on patients less than 10 years of age. Blood 11/15/2023 7:39 AM CDT 11/15/2023 7:58 AM CDT Zac Jackson MD LABORATORY [facility] [address] [address] * HIV COMBO (11/15/2023 7:39 AM CDT) [facility] HIV Antigen-Antibody Nonreactive Nonreactive [facility] Comment:Performance characte ristics have not been established with this test on patients less than 2 years of age. Blood 11/15/2023 7:39 AM CDT 11/15/2023 7:58 AM CDT Zac Jackson MD LABORATORY Performing Organization Address City/[facility]/ZIP Co de Phone Number [facility] [address] [address] * (ABNORMAL) CREATININE, SERUM (11/15/2023 7:39 AM CDT) [facility] Creatinine 2.83(H) 0.70 - 1.25 mg/dL [facility] eGFR (2020 CKD-EPI) 27(L) >=60 ml/min/1.7 3m2 [facility] Comment: The estimated glomerular filtration rate (eGFR) was calculated using the CKD-EPI 2020 creatinine equation, which does not include race as a factor. This equation is validated in individuals 18 years of age and older, and eGFR is normalized to a body surface area of 1.73m^2. Blood 11/15/2023 7:39 AM CDT 11/15/2023 7:58 AM CDT Shani Shaw MD LABORATORY [facility] [address] [address] * (ABNORMAL) PROTEIN TO CREAT RATIO,URINE (11/14/2023 9:58 AM CDT) Pathologist [facility] TPU 22(H) 0 - 11 mg/dL [facility] Creat Urine 89 30 - 125 mg/dL [facility] Protein to Creat Ratio, Ur 0.25(H) 0.00 - 0.06 mg/mg [facility] Urine 11/14/2023 9:58 AM CDT 11/14/2023 10:06 AM CDT Zac Jackson MD LABORATORY Performing Organization Address [facility] Co de Phone Number [facility] [address] [address] * (ABNORMAL) URINALYSIS,TOTAL (11/14/2023 9:58 AM CDT) Only the most recent of2 resultswithin the time period is included. Color YELLOW YELLOW [facility] Appearance CLEAR CLEAR [facility] Urine Glucose 500(A) NEGATIVE mg/dL [facility] Bili UA NEGATIVE NEGATIVE [facility] Ketones NEGATIVE NEGATIVE [facility] Specific [place] 1.012 1.003 - 1.030 [facility] Blood Ur NEGATIVE Neg-Trace [facility] PH Urine 5.5 5.0 - 7.0 [facility] Protein Ur TRACE Neg-Trace [facility] Urobilinogen NORMAL NORMAL EU/dL [facility] Nitrite Ur NEGATIVE NEGATIVE [facility] Leuk Est NEGATIVE Neg-Trace [facility] WBC Ur 0-5 0 - 5 perHPF [facility] RBC Ur 0-3 0 - 3 perHPF [facility] Mucus 1+ perLPF [facility] Urinalysis Performed at: [facility] Urine 11/14/2023 9:58 AM CDT 11/14/2023 10:06 AM CDT Zac Jackson MD LABORATORY Performing Organization Address [facility] de Phone Number [facility] [address] [address] * PHOSPHORUS (11/14/2023 5:30 AM CDT) Only the most recent of3 resultswithin the time period is included. Phosphorus 4.3 2.5 - 4.5 mg/dL [facility] Blood 11/14/2023 5:30 AM CDT 11/14/2023 5:56 AM CDT Zac Jackson MD LABORATORY Performing Organization Address [facility] Co de Phone Number [facility] [address] [address] * MAGNESIUM (11/14/2023 5:30 AM CDT) Only the most recent of3 resultswithin the time period is included. Magnesium 2.4 1.6 - 2.6 mg/dL [facility] Blood 11/14/2023 5:30 AM CDT 11/14/2023 5:56 AM CDT Zac Jackson MD LABORATORY Performing Organization Address City/[facility]/ZIP Co de Phone Number [facility] [address] [address] * URINE CHLAMYDIA AND NEISSERIAE GONORRHOEAE AMPLIFICATION (11/13/2023 10:45 AM CDT) Chlamydia Amplification - Urine Negative Negative [facility] Comment:Test performed by tr anscription mediated amplification and is FDA approved for genital and urine specimens. N. Gonorrhea Amplification - Urine Negative Negative [facility] Comment:Test performed by tr anscription mediated amplification and is FDA approved for genital and urine specimens. Urine 11/13/2023 10:4 5 AM CDT 11/13/2023 3:03 PM CDT Narrative [facility] - 11/15/2023 12:29 PM CDT For Urines, use first void. Zac Jackson MD LABORATORY Performing Organization Address [facility] Co de Phone Number [facility] [address] [address] * HEPATITIS B SURFACE ANTIGEN (11/13/2023 10:20 AM CDT) HBV Surface Ag Nonreactive Nonreactive [facility] Comment: Testing performed at: [facility] [address] [address] Blood 11/13/2023 10:2 0 AM CDT 11/13/2023 10:27 AM CDT Zac Jackson MD LABORATORY Performing Organization Address City/[facility]/ZIP Co de Phone Number [facility] [address] [address] * HEPATITIS B SURFACE ANTIBODY (11/13/2023 10:20 AM CDT) HBsAb Quant <3.31 mIU/ml [facility] Comment:The Hepatitis B Surf gabriella Antibody quantitation is less than 8.00 mIU/mL. There is no evidence of an antibody response to a hepatitis B vaccination or recovery from a hepatitis B infection. This patient is presumed non-immune to hepatitis B. HBsAb Interpretation Nonreactive [facility] Blood 11/13/2023 10:2 0 AM CDT 11/13/2023 10:27 AM CDT Zac Jackson MD LABORATORY Performing Organization Address [facility] Co de Phone Number [facility] [address] [address] * RPR SYPHILIS SCREEN (11/12/2023 11:10 PM CDT) Pathologist [facility] [place] RPR Screen Non-Reactive Non-Reacti ve [facility] RPR Titer Not Reflexed [facility] Blood 11/12/2023 11:1 0 PM CDT 11/12/2023 11:40 PM CDT Zac Jackson MD LABORATORY Performing Organization Address [facility] Co de Phone Number [facility] [address] [address] * Intubation/Airway (11/11/2023 2:55 PM CDT) Narrative Ha Tavares APRN, CRNA - 11/11/2023 2:55 PM CDT Ha Tavares APRN, CRNA ? 11/11/2023 ??2:56 PM AIRWAY/INTUBATION PROCEDURE GlideScope ??(Type: Surgical Anesthesia) Process/Method: awake ?? Indications for procedure: surgery ?? Preoxygenation: mask Device Device used: Glidescope Supporting device: ?? Blade size: 4 The patient was intubated with a 7.5 mm endotracheal tube inflated to seal and secured at 23 cm to Lips Grade: I Narrative 1 intubation attempt(s) confirmed in 0-30 sec ?? Intubation Assessment: +ETCO2, EBBS and fog in ETT Ease of masking (I-easy to IV-difficult): III Ease of intubation (I-easy to IV-difficult): I Dentition Assessment: poor dentition, dentition unchanged and oral mucosa unchanged Performed by: Other: Gala Baxter Anesthesia start: 11/11/2023 2:34 PM Intubation time: 11/11/2023 2:45 PM Jatin Eckert MD PROCEDURES * (ABNORMAL) ICU MAGNESIUM (11/11/2023 5:36 AM CDT) Magnesium 1.2(L) 1.6 - 2.6 mg/dL [facility] Blood 11/11/2023 5:36 AM CDT 11/11/2023 5:45 AM CDT Zac Jackson MD LABORATORY Performing Organization Address City/[facility] Co de Phone Number [facility] [place] [phone] * ICU PHOSPHORUS (11/11/2023 5:36 AM CDT) Phosphorus 2.9 2.5 - 4.5 mg/dL [facility] Blood 11/11/2023 5:36 AM CDT 11/11/2023 5:45 AM CDT Zac Jackson MD LABORATORY Performing Organization Address [facility] Co de Phone Number [facility] [place] [phone] * (ABNORMAL) ICU CBC WITH PLTS/AUTO DIFF (11/11/2023 5:36 AM CDT) WBC 17.41(H) 4.00 - 10.00 k/cmm [facility] RBC 2.72(L) 4.60 - 6.00 m/cmm [facility] Hgb 7.8(L) 13.1 - 17.5 g/dL [facility] Hematocrit 24.1(L) 40.0 - 51.0 % [facility] MCV 88.6 80.0 - 100.0 fL [facility] MCH 28.7 25.0 - 32.0 pg [facility] MCHC 32.4 31.0 - 36.0 g/dL [facility] RDW 13.2 11.5 - 14.5 % [facility] Plt 203 150 - 400 k/cmm [facility] MPV 10.1 6.5 - 12.5 fL [facility] Automated Abs Neutrophil 13.29(H) 1.70 - 6.50 k/cmm [facility] Comment:Preliminary ANC, Fin al Result to Follow Judy Cell Slight [facility] Toxic Gran Present [facility] Toxic Vac Present [facility] Abs Neutrophil 13.41(H) 1.70 - 6.50 k/cmm [facility] Abs Lymphocyte 2.96 0.80 - 4.00 k/cmm [facility] Abs Monocyte 0.87 0.20 - 1.00 k/cmm [facility] Abs Basophil 0.17 0.00 - 0.20 k/cmm [facility] Blood 11/11/2023 5:36 AM CDT 11/11/2023 5:45 AM CDT Zac Jackson MD LABORATORY [facility] [address] [address] * (ABNORMAL) ICU PANEL BASIC METABOLIC (BMP) (11/11/2023 5:36 AM CDT) AnGap 9 8 - 16 mmol/L [facility] BUN 15 6 - 20 mg/dL [facility] Calcium 6.0(AA) 8.6 - 10.0 mg/dL [facility] Comment:Critical Result Low Chloride 108 92 - 108 mmol/L [facility] CO2 22 22 - 30 mmol/L [facility] Glucose 135(H) 70 - 100 mg/dL [facility] Creatinine 0.93 0.70 - 1.25 mg/dL [facility] Potassium 3.2(L) 3.5 - 5.3 mmol/L [facility] eGFR (2020 CKD-EPI) 103 >=60 ml/min/1.7 3m2 [facility] Comment: The estimated glomerular filtration rate (eGFR) was calculated using the CKD-EPI 2020 creatinine equation, which does not include race as a factor. This equation is validated in individuals 18 years of age and older, and eGFR is normalized to a body surface area of 1.73m^2. Sodium 139 135 - 148 mmol/L [facility] Blood 11/11/2023 5:36 AM CDT 11/11/2023 5:45 AM CDT Narrative [facility] - 11/11/2023 6:25 AM CDT Critical value for Calcium called to and read back by Sheila Dias RN in STN4 at 11/11/2023 06:24:12 CDT by Larry Fuchs MLS. Zac Jackson MD LABORATORY Performing Organization Address [facility] Co de Phone Number [facility] [address] [address] * (ABNORMAL) TROP 6H (11/10/2023 10:15 PM CDT) 6H Trop 35 <=35 ng/L [facility] 6H Delta Significan t(A) Not Significant [facility] Blood 11/10/2023 10:1 5 PM CDT 11/10/2023 10:31 PM CDT Jessica Madrigal MD LABORATORY Performing Organization Address [facility] Co de Phone Number [facility] [address] [address] * (ABNORMAL) TROP 2H (11/10/2023 6:34 PM CDT) 2H Trop 21 <=35 ng/L [facility] 2H Delta Significan t(A) Not Significant [facility] Blood 11/10/2023 6:34 PM CDT 11/10/2023 6:37 PM CDT Jessica Madrigal MD LABORATORY Performing Organization Address [facility] Co de Phone Number [facility] [address] [address] * Intubation/Airway (11/10/2023 4:46 PM CDT) Narrative Suzy Tam APRN, CRNA - 11/10/2023 4:46 PM CDT Suzy Tam APRN, CRNA ? 11/10/2023 ??4:47 PM AIRWAY/INTUBATION PROCEDURE direct laryngoscopy ??(Type: Surgical Anesthesia) Process/Method: sedated and paralyzed ?? Indications for procedure: surgery Assessment: vocal cords open and clear Preoxygenation: mask Device Device used: MAC Supporting device: ?? Blade size: 3 The patient was intubated with a 7.5 mm standard endotracheal tube inflated to seal and secured at 23 cm to Grade: I Sellicks not used Narrative 1 intubation attempt(s) confirmed in 0-30 sec ?? Intubation Assessment: +ETCO2, EBBS and fog in ETT Ease of masking (I-easy to IV-difficult): II Ease of intubation (I-easy to IV-difficult): I Dentition Assessment: poor dentition, oral mucosa unchanged and dentition unchanged Performed by: EMERGENCY SPECIALIST: Suzy Tam APRN, CRNA Additional Notes Mask with #10 oral airway Events Anesthesia start: 11/10/2023 4:31 PM Intubation time: 11/10/2023 4:43 PM Dontae Higgins MD PROCEDURES * ED EKG (12-LEAD) (11/10/2023 3:21 PM CDT) 11/10/2023 3:21 PM CDT Impressions [facility] CVIS EKG ORDERS - 11/10/2023 3:21 PM CDT SINUS TACHYCARDIA MINIMAL ST DEPRESSION ??[0.025+ mV ST DEPRESSION] ABNORMAL QRS-T ANGLE ??[QRS-T AXIS DIFFERENCE > 60] NONSPECIFIC ST AND T WAVE ABNORMALITY. ABNORMAL ECG P-R Interval 138 ms QRS Interval 90 ms QT Interval 348 ms QTC Interval 405 ms P [place] 35 QRS [place] 1 T Wave [place] 148 Narrative Procedure Note Jessica Madrigal MD - 11/10/2023 IMPRESSION SINUS TACHYCARDIA MINIMAL ST DEPRESSION [0.025+ mV ST DEPRESSION] ABNORMAL QRS-T ANGLE [QRS-T AXIS DIFFERENCE > 60] NONSPECIFIC ST AND T WAVE ABNORMALITY. ABNORMAL ECG P-R Interval 138 ms QRS Interval 90 ms QT Interval 348 ms QTC Interval 405 ms P [place] 35 QRS [place] 1 T Wave [place] 148 Jessica Madrigal MD EKG [facility] CVIS EKG ORDERS * CT OUTSIDE READ MSK/NON NEURO (11/10/2023 3:07 PM CDT) Anatomical Region Laterality Modality Computed Tomogra phy 11/10/2023 3:39 PM CDT Impressions 11/10/2023 4:39 PM CDT Impression: ?? 1. Necrotizing soft tissue infection of the first digit of left foot. The distal end of the proximal first phalanx demonstrates some areas of cortical erosion. Study is suboptimal, however findings are concerning for osteomyelitis. Consider MRI or dedicated foot CT for additional evaluation. 2. 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 I have personally reviewed the image(s) and initial interpretation, and I agree with the findings as documented by the resident/fellow. 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 ??No initial report accompanied the patient and/or Dr. ??JESSICA MADRIGAL requested an interpretation by me. Technique: ??CT scan of the left lower extremity done on 11/10/2023 with IV contrast. 2 mm axial, sagittal and coronal reconstructions reviewed in soft tissue and bone windows, per the local institution's scanning protocols, which may differ from the [facility] trauma protocols. Findings: ??Subcutaneous emphysema within the perineum and left testicle with surrounding fat stranding consistent with Patricai's gangrene. Additionally there is subcutaneous emphysema in the first digit of the left foot and fat stranding throughout soft tissues extending to the MCP joint. No organized fluid collections. Subchondral cystic changes within the tarsals and metacarpophalangeal joints. ??Severe degenerative changes of the right hip. Procedure Note Praful Woodson MBBS - 11/10/2023 Indication: Patient transferred from [facility] due toFournier's gangrene. No initial report accompanied the patient and/or Dr.ROCHELLE MADRIGAL requested an interpretation by me. Technique: CT scan of the left lower extremity done on 11/10/2023 with IVcontrast. 2 mm axial, sagittal and coronal reconstructions reviewed insoft tissue and bone windows, per the local institution's scanningprotocols, which may differ from the [facility] trauma protocols. Findings: Subcutaneous emphysema within the perineum and left testiclewith surrounding fat stranding consistent with Patricia's gangrene.Additionally there is subcutaneous emphysema in the first digit of theleft foot and fat stranding throughout soft tissues extending to the MCPjoint. No organized fluid collections. Subchondral cystic changes withinthe tarsals and metacarpophalangeal joints. Severe degenerative changesof the right hip. IMPRESSION Impression: 1. Necrotizing soft tissue infection of the first digit of left foot. Thedistal end of the proximal first phalanx demonstrates some areas ofcortical erosion. Study is suboptimal, however findings are concerning forosteomyelitis. Consider MRI or dedicated foot CT for additionalevaluation. 2. Necrotizing soft tissue infection of the perineum and left testicleconsistent with Patricia's gangrene. I have personally reviewed the image(s) and initial interpretation, and Iagree with the findings as documented by the resident/fellow. Reading Radiologist: Praful Woodson Reading Resident: Toi Turner Jessica Madrigal MD RAD CT BODY * CT OUTSIDE READ ABD/PELV (11/10/2023 3:07 PM CDT) Anatomical Region Laterality Modality Abdomen, Pelvis Computed Tomogra phy 11/10/2023 3:28 PM CDT Impressions 11/10/2023 4:24 PM CDT IMPRESSION: 1.Extensive perineal and inguinal soft tissue gas, extending exterior to the left spermatic cord, into the scrotum. Findings concerning for necrotizing fasciitis. 2.Situs inversus totalis. 3.Other nonacute, and chronic findings as described above. I have personally reviewed the image(s) and initial interpretation, and I agree with the findings as documented by the resident/fellow. 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 ??No initial report accompanied the patient and/or Dr. ??JESSICA MADRIGAL requested an interpretation by me. Technique: ??CT scan of the abdomen/pelvis done on 11/10/2023 ??with IV contrast. ??3 mm axial, sagittal and coronal reconstructions reviewed in soft tissue and bone windows, per the local institution's scanning protocols, which may differ from the [facility] trauma protocols. Comparison: Same day scrotal ultrasound. Indication: Fourniers, gas in perineum ??. Hx of situs inversus. Technique: Volumetric helical acquisition of CT images from the top of diaphragms to symphysis pubis after the administration of intravenous contrast. FINDINGS: Situs inversus totalis. Mediastinum: No pericardial effusion. No Cardiomegaly. Chest: The visualized lung bases are clear. Liver: Normal. Gallbladder: Normal. No cholelithiasis. Pancreas: Normal. Spleen: Normal. Adrenal Glands: Normal. Kidneys/Bladder: No hydronephrosis or hydroureter. No renal stones. Bladder wall does not appear thickened. : Unremarkable. Bowel and Peritoneum: Normal caliber of the small and large bowel. No pneumoperitoneum. No free fluid. Appendix is unremarkable. Aorta and Major Vessels: Aorta and IVC exhibit normal caliber. Lymph Nodes: Multiple, bilateral enlarged inguinal lymph nodes, likely reactive. Bones/Soft tissues: Extensive perineal and inguinal soft tissue gas bilaterally, and tracking exterior to the left spermatic cord, into the scrotum. Severe degenerative changes of the right hip, and mild degenerative changes of the left hip. ??Mild degenerative changes of the thoracic spine. Procedure Note Praful Woodson MBBS - 11/10/2023 Indication: Patient transferred from [facility] due toFournier's gangrene. No initial report accompanied the patient and/or .JESSICA MADRIGAL requested an interpretation by me. Technique: CT scan of the abdomen/pelvis done on 11/10/2023 with IVcontrast. 3 mm axial, sagittal and coronal reconstructions reviewed insoft tissue and bone windows, per the local institution's scanningprotocols, which may differ from the [facility] trauma protocols. Comparison: Same day scrotal ultrasound. Indication: Fourniers, gas in perineum . Hx of situs inversus. Technique: Volumetric helical acquisition of CT images from the top ofdiaphragms to symphysis pubis after the administration of intravenouscontrast. FINDINGS: Situs inversus totalis. Mediastinum: No pericardial effusion. No Cardiomegaly. Chest: The visualized lung bases are clear. Liver: Normal. Gallbladder: Normal. No cholelithiasis. Pancreas: Normal. Spleen: Normal. Adrenal Glands: Normal. Kidneys/Bladder: No hydronephrosis or hydroureter. No renal stones. Bladder wall does not appear thickened. : Unremarkable. Bowel and Peritoneum: Normal caliber of the small and large bowel. No pneumoperitoneum. No freefluid. Appendix is unremarkable. Aorta and Major Vessels: Aorta and IVC exhibit normal caliber. Lymph Nodes: Multiple, bilateral enlarged inguinal lymph nodes, likely reactive. Bones/Soft tissues: Extensive perineal and inguinal soft tissue gas bilaterally, and trackingexterior to the left spermatic cord, into the scrotum. Severe degenerative changes of the right hip, and mild degenerativechanges of the left hip. Mild degenerative changes of the thoracicspine. IMPRESSION IMPRESSION: 1.Extensive perineal and inguinal soft tissue gas, extending exterior tothe left spermatic cord, into the scrotum. Findings concerning fornecrotizing fasciitis. 2.Situs inversus totalis. 3.Other nonacute, and chronic findings as described above. I have personally reviewed the image(s) and initial interpretation, and Iagree with the findings as documented by the resident/fellow. Reading Radiologist: Praful Woodson Reading Resident: Douglas Baldwin Jessica Madrigal MD RAD CT BODY * ED INR (11/10/2023 2:31 PM CDT) ED INR 1.1 0.8 - 1.1 [facility] Comment: Warfarin Therapeutic Range: Standard Intensity: 2.0 - 3.0 High Intensity: 2.5 - 3.5 This is a rapid INR screening test which uses whole blood; results may infrequently differ from plasma INR results. If medication adjustments/dosing are required a PT/INR test ([id number]) should be ordered and performed in the main laboratory. Blood 11/10/2023 2:31 PM CDT 11/10/2023 2:41 PM CDT Jessica Madrigal MD LABORATORY Performing Organization Address City/[facility] Co de Phone Number [facility] [address] [address] * EXTRA TUBE - SST (11/10/2023 2:31 PM CDT) [facility] SST TUBE Stored [facility] Comment:SST tubes (Serum Sep arator) are stored in the lab for 3 days from the collection date. Blood 11/10/2023 2:31 PM CDT 11/10/2023 2:43 PM CDT Jessica Madrigal MD LABORATORY Performing Organization Address [facility] Co de Phone Number [facility] [address] [address] * (ABNORMAL) HS TROPONIN (11/10/2023 2:31 PM CDT) [facility] HS Troponin I 49(H) <=35 ng/L [facility] Blood 11/10/2023 2:31 PM CDT 11/10/2023 2:57 PM CDT Narrative [facility] - 11/10/2023 3:25 PM CDT First Occurrence of the Troponin order is to be drawn Stat by Nursing staff on the unit. Jessica Madrigal MD LABORATORY Performing Organization Address City/[facility] Co de Phone Number [facility] [address] [address] * (ABNORMAL) ED HEMOGLOBIN TOTAL (ED ONLY) (11/10/2023 2:31 PM CDT) Pathologist [facility] [place] Hgb 12.4(L) 13.1 - 17.5 g/dL [facility] Blood 11/10/2023 2:31 PM CDT 11/10/2023 2:45 PM CDT Jessica Madrigal MD LABORATORY Performing Organization Address [facility] de Phone Number [facility] [address] [address] * (ABNORMAL) PANEL HEPATIC FUNCTION (11/10/2023 2:31 PM CDT) Pathologist [facility] [place] Total Protein 7.1 6.4 - 8.3 g/dL [facility] Albumin 2.9(L) 3.8 - 5.1 g/dL [facility] Bili Total 0.3 <=1.2 mg/dL [facility] Bili Direct <0.2 <=0.3 mg/dL [facility] Alk Phos 104 40 - 129 IU/L [facility] Comment:No reference range e stablished for patients <18 years old. ALT (SGPT) 9 <=41 IU/L [facility] AST(SGOT) 14 5 - 40 IU/L [facility] Blood 11/10/2023 2:31 PM CDT 11/10/2023 2:57 PM CDT Jessica Madrigal MD LABORATORY Performing Organization Address [facility] de Phone Number [facility] [address] [address] * (ABNORMAL) BLOOD GASES (11/10/2023 2:31 PM CDT) Pathologist [facility] [place] PH Mayo 7.47(H) 7.32 - 7.42 [facility] PCO2 Mayo 38(L) 41 - 51 mmHG [facility] PO2 [place] 75(H) 25 - 40 mmHG [facility] Bicarb Mayo 27 24 - 28 mEq/L [facility] O2 Sat [place] 96 % [facility] Base Exc [place] 3.7(H) -10.0 - 2.0 mmol/L [facility] Blood Venous 11/10/2023 2:31 PM CDT 11/10/2023 2:45 PM CDT Jessica Mdarigal MD LABORATORY Performing Organization Address City/[facility]/ZIP Co de Phone Number [address] [address] * (ABNORMAL) FIBRINOGEN (11/10/2023 2:31 PM CDT) Pathologist [facility] [place] Fibrinogen >1,000(H) 200 - 400 mg/dL [facility] Blood 11/10/2023 2:31 PM CDT 11/10/2023 2:57 PM CDT Jessica Madrigal MD LABORATORY Performing Organization Address [facility] Co de Phone Number [address] [address] * ETHANOL (ETOH) LEVEL, BLOOD (11/10/2023 2:31 PM CDT) Pathologist [facility] [place] Ethanol Negative Negative g/dL [facility] Blood 11/10/2023 2:31 PM CDT 11/10/2023 2:57 PM CDT Jessica Madrigal MD LABORATORY Performing Organization Address [facility] Co de Phone Number [address] [address] * PTT (APTT) (11/10/2023 2:31 PM CDT) Pathologist [facility] [place] APTT 32.9 25.0 - 37.0 sec [facility] Blood 11/10/2023 2:31 PM CDT 11/10/2023 2:57 PM CDT Jessica Madrigal MD LABORATORY Performing Organization Address [facility] Co de Phone Number [address] [address] * PRECAUTIONARY TUBE (11/10/2023 2:29 PM CDT) Prec Tube Precautionary Blood Bank Specimen Received. [facility] Blood 11/10/2023 2:29 PM CDT 11/10/2023 2:49 PM CDT Jessica Madrigal MD LAB TRANSFUSION SER VICES Performing Organization Address [facility] Co de Phone Number [facility] [place] [phone] * ANTIBODY SCREEN (11/10/2023 2:29 PM CDT) Lilly Screen Negative [facility] Blood 11/10/2023 2:29 PM CDT 11/10/2023 2:49 PM CDT Jessica Madrigal MD LAB TRANSFUSION SER VICES Performing Organization Address [facility] Co de Phone Number [facility] [place] [phone] * BLOOD TYPING-ABO/RH (11/10/2023 2:29 PM CDT) ABORHG A POS [facility] Blood 11/10/2023 2:29 PM CDT 11/10/2023 2:49 PM CDT Jessica Madrigal MD LAB TRANSFUSION SER VICES Performing Organization Address [facility] Co de Phone Number [facility] [address] [address] * ED US CRITICAL CARE (11/10/2023 2:28 PM CDT) Anatomical Region Laterality Modality Ultrasound Narrative 11/10/2023 3:16 PM CDT ED Critical Care Resuscitative Ultrasound ED Cardiac Ultrasound Body Areas Imaged: Heart, Chest Wall/Lungs, and Inferior Vena Cava Indications:Shock/Sepsis Window: Subxiphoid, Parasternal Short [place], Parasternal Long [place], Apical 4-Chamber, and Bilateral Lungs Findings: The left ventricular ejection fraction appears: Grossly preserved No pericardial effusion identified. RV Dilation present/absent: No significant right ventricular dilation appreciated Lung sliding present bilaterally, No pleural effusion, A-line predominance The IVC was not imaged Impression: The left ventricular ejection fraction appears: Grossly preserved No pericardial effusion identified. RV Dilation present/absent: No significant right ventricular dilation appreciated A-Line predominance consistent with normal lung aeration Findings suggest euvolemia Allyssa Drummond MD, 11/10/2023 3:10 PM ED Attending Ultrasound Note: I have personally reviewed the image(s) and initial interpretation, and I agree with the findings as documented. Lawrence Saha MD, 11/10/2023 3:16 PM Jessica Madrigal MD RAD ED ULT * ULT ABDOMEN/PELVIS OUTSIDE FILMS (11/10/2023 10:46 AM CDT) Narrative User, [email or web address] - 11/10/2023 3:20 PM CDT Outside Film Only Outside Provider RAD OUTSIDE FILMS from Last 3 Months Additional Health Concerns Infection Onset Date Last Indicated MRSA 11/17/2023 12/08/2023 Advance Directives For more information, please contact: [phone] * Full Code (Latest Code Status on File) Date Activated Date Inactivated Comments 12/12/2023 10:10 AM Question Answer Comments Does the Patient have prefer ences regarding life sustaining measures (these options only apply when the patient has a pulse): No Discussed Code Status With Whom? Not discussed * Full Code Date Activated Date Inactivated Comments 12/08/2023 8:19 AM 12/12/2023 10:10 AM Question Answer Comments Does the Patient have prefer ences regarding life sustaining measures (these options only apply when the patient has a pulse): No Discussed Code Status With Whom? Not discussed * Full Code Date Activated Date Inactivated Comments 11/24/2023 1:27 PM 12/07/2023 3:49 PM Question Answer Comments Does the Patient have prefer ences regarding life sustaining measures (these options only apply when the patient has a pulse): No Discussed Code Status With Whom? Patient Health Care Directive and/or Previous Code/End of Life Pref Reviewed? No * Full Code Date Activated Date Inactivated Comments 11/10/2023 11:44 PM 11/24/2023 1:27 PM Question Answer Comments Does the Patient have prefer ences regarding life sustaining measures (these options only apply when the patient has a pulse): No Discussed Code Status With Whom? Not discussed * Full Code Date Activated Date Inactivated Comments 11/10/2023 11:44 PM 11/10/2023 11:44 PM Question Answer Comments Does the Patient have prefer ences regarding life sustaining measures (these options only apply when the patient has a pulse): No Discussed Code Status With Whom? Not discussed
--- OUTSIDE RECORDS SUMMARY | 2024-02-07 08:45 | XMS_ITS | Encounter Summary ---
Author Organization [facility] Address [address] [place] [phone] Phone Care Team Providers Care Sanitation Associate Name Role Phone Unavailable Primary Care Provider Unavailabl e Encounter Details Date Type Department Care Team (Latest Contact Info) Description 01/19/2024 Travel Social History Tobacco Use Types Packs/Day Years Used Date Smoking Tobacco: Unknown Humiliation, Afraid, Rape, and Kick questionnair e [...] on file Sexual Orientation Not on file documented as of this encounter Plan of Treatment Not on file documented as of this encounter Visit Diagnoses Not on filedocumented in this encounter Additional Health Concerns Infection Onset Date Last Indicated Resolved Time 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
--- OUTSIDE RECORDS SUMMARY | 2024-02-07 08:45 | XMS_ITS | Referral Summary ---
Author Organization [employer] Address [address] [place] [address] Phone Care Team Providers Care Ring Spinner Name Role Phone Unavailable Primary Care Provider Unavailabl e Source Comments [employer] is fully rolled out on [employer]. 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[facility]) Discharge Disposition: Discharged to home or self care 01/19/2024 Travel 01/19/2024 10:30 AM CDT - 01/19/2024 11:59 PM CDT Hospital Encounter [facility] [address] [place] [address] Nikolai Martinez MD Routine, Hbo - Discharge Disposition: Discharged to home or self care 01/18/2024 Travel 01/18/2024 10:06 AM CDT - 01/18/2024 11:59 PM CDT Hospital Encounter [facility] [address] [place] [address] David Cortes MD Routine, Hbo - Discharge Disposition: Discharged to home or self care 01/17/2024 Travel 01/17/2024 9:42 AM CDT - 01/17/2024 11:59 PM CDT Hospital Encounter [facility] [address] [place] [address] Douglas Morris II, MD Routine, Hbo - Discharge Disposition: Discharged to home or self care 01/12/2024 Travel 01/12/2024 9:53 AM CDT - 01/12/2024 11:59 PM CDT Hospital Encounter [facility] [address] [place] [address] David Cortes MD Routine, Hbo - Discharge Disposition: Discharged to home or self care 01/11/2024 Travel 01/11/2024 10:01 AM CDT - 01/11/2024 11:59 PM CDT Hospital Encounter [facility] [address] [place] [address] Nikolai Martinez MD Routine, Hbo - Discharge Disposition: Discharged to home or self care 01/07/2024 Travel 01/07/2024 10:06 AM CDT - 01/07/2024 11:59 PM CDT Hospital Encounter [facility] [address] [place] [address] Maggy Horan MD Routine, Hbo - Discharge Disposition: Discharged to home or self care 01/06/2024 Travel 01/06/2024 9:40 AM CDT - 01/06/2024 11:59 PM CDT Hospital Encounter [facility] [address] [place] [address] David Cortes MD Discharge Disposition: Discharged to home or self care 01/06/2024 9:50 AM CDT - 01/06/2024 11:59 PM CDT Hospital Encounter [facility] [address] [place] [address] David Cortes MD Routine, Hbo - Discharge Disposition: Discharged to home or self care 01/05/2024 Orders Only [facility] [address] [place] [address] Talita Patel MD 01/05/2024 Travel 01/05/2024 9:32 AM CDT - 01/05/2024 11:59 PM CDT Hospital Encounter [facility] [address] [place] [address] David Cortes MD Routine, Hbo - Discharge Disposition: Discharged to home or self care 01/04/2024 Travel 01/04/2024 10:16 AM CDT - 01/04/2024 11:59 PM CDT Hospital Encounter [facility] [address] [address] Douglas Morris II, MD Routine, Hbo - Discharge Disposition: Discharged to home or self care 01/03/2024 Travel 01/03/2024 9:33 AM CDT - 01/03/2024 11:59 PM CDT Hospital Encounter [facility] [address] [place] [address] Narcisa Sanford MD Routine, Hbo - Discharge Disposition: Discharged to home or self care 12/31/2023 Travel 12/31/2023 9:51 AM CDT - 12/31/2023 11:59 PM CDT Hospital Encounter [facility] [address] [place] [address] Douglas Morris II, MD Routine, Hbo - Discharge Disposition: Discharged to home or self care 12/31/2023 1:00 PM CDT [facility] [address] [address] Suzy Patino DPM S/P foot surgery, right (Primary Dx) Discharge Disposition: Discharged to home or self care 12/30/2023 Travel 12/30/2023 9:49 AM CDT - 12/30/2023 11:59 PM CDT Hospital Encounter [facility] [address] [place] [address] David Cortes MD Routine, Hbo - Discharge Disposition: Discharged to home or self care 12/29/2023 Travel 12/29/2023 9:38 AM CDT - 12/29/2023 11:59 PM CDT Hospital Encounter [facility] [address] [place] [address] Nikolai Martinez MD Routine, Hbo - Discharge Disposition: Discharged to home or self care 12/28/2023 Telephone [facility] [address] [place] [phone] Dayanna Rodriguez RN Care Coordination (Called to discuss outpatient HBOT schedule) 12/27/2023 Travel 12/27/2023 9:00 AM CDT Nurse Only [facility] [address] [place] [address] Suzy Patino DPM Discharge Disposition: Discharged to home or self care 12/24/2023 Travel 12/24/2023 10:00 AM CDT [facility] [address] [place] [address] 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, DRAMA THERAPIST, EYELET OPERATOR 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); Soft tissue infection Discharge Disposition: Discharged to home or self care 12/23/2023 Travel 12/23/2023 9:33 AM CDT - 12/23/2023 11:59 PM CDT Hospital Encounter [facility] [address] [place] [address] Nikolai Martinez MD Routine, Hbo - Discharge Disposition: Discharged to home or self care 12/22/2023 Travel 12/22/2023 9:43 AM CDT - 12/22/2023 11:59 PM CDT Hospital Encounter [facility] [address] [place] [address] Narcisa Sanford MD Routine, Hbo - Discharge Disposition: Discharged to home or self care 12/20/2023 Travel 12/20/2023 9:34 AM CDT - 12/20/2023 11:59 PM CDT Hospital Encounter [facility] [address] [place] [address] Shawn Vines MD Routine, Hbo - Discharge Disposition: Discharged to home or self care 12/17/2023 Travel 12/17/2023 1:45 PM CDT [facility] [address] [address] Suzy Patino DPM S/P foot surgery, right (Primary Dx) Discharge Disposition: Discharged to home or self care 12/14/2023 Telephone [facility] Medicine [address] [place] [address] Aretha Damon MD Follow-up 12/07/2023 3:48 PM CDT - 12/14/2023 12:38 PM CDT Hospital Encounter [facility] [address] [place] [address] Eusebio Vivar MD Rajagopal, Shrikar S, MD Oeding, Suzy Torres, Igor Cosby MD Lawson, Michael J, MD Other acute osteomyelitis of left foot ([facility]) Discharge Disposition: Discharged/transd to home (care by home health service organization) 12/10/2023 10:39 AM CDT Anesthesia Event OR P4 [address] [place] [address] Clint White MD Bojanov, Krasimir G, MD 12/10/2023 9:49 AM CDT - 12/10/2023 11:34 AM CDT Surgery OR P4 [address] [place] [address] Suzy Patino DPM REVISION, AMPUTATION SITE, POSSIBLE PARTIAL FOOT AMPUTATION, IRRIGATION AND DEBRIDMENT, POSSIBLE SERIAL PROCEDURES, L LOWER EXTREMITY 12/08/2023 7:28 AM CDT Anesthesia Event OR P4 [address] [place] [address] Dontae Higgins MD Bojanov, Krasimir G, MD 12/08/2023 7:35 AM CDT - 12/08/2023 9:13 AM CDT Surgery OR P4 [address] [place] [address] Che Campos DPM PARTIAL AMPUTATION FOOT 12/07/2023 3:07 PM CDT - 12/07/2023 11:59 PM CDT Hospital Encounter [facility] [address] [address] Che Campos DPM Discharge Disposition: Discharged to home or self care 12/07/2023 Travel 12/07/2023 2:30 PM CDT [facility] [address] [place] [phone] Che Campos DPM 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); Cellulitis of left lower extremity Discharge Disposition: Discharged to home or self care 12/02/2023 Nurse Triage [facility] [address] [place] [address] Angi Aranda RN Post-op Complications 11/10/2023 2:28 PM CDT - 11/25/2023 12:02 PM CDT Hospital Encounter [facility] [place]/Trauma/Chinedu ro [address] [place] [address] Jessica Madrigal MD Gayken, Jon R, MD 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[facility]) Discharge Disposition: Discharged/transd to SNF with Medicare certification 11/18/2023 Orders Only Unspecified Department [place] Unknown, Provider 11/18/2023 [facility] [place] [phone] Eusebio Leon DO 11/18/2023 Orders Only Unspecified Department [place] Unknown, Provider 11/17/2023 Orders Only Unspecified Department [place] Unknown, Provider 11/17/2023 Orders Only Unspecified Department [place] Unknown, Provider 11/17/2023 9:01 AM CDT Anesthesia Event OR P4 [address] [place] [address] Brady Lai MD Teslaa, Polly A RN 11/17/2023 8:34 AM CDT - 11/17/2023 9:46 AM CDT Surgery OR P4 [address] [place] [address] Che Campos DPM AMPUTATION, TOE 11/15/2023 Orders Only Unspecified Department [place] Unknown, [...] CDT Anesthesia Event OR P4 [address] [place] [address] Jatin Eckert MD Weis, Andrew S, DRAMA THERAPIST, CAREER INFORMATION SPECIALIST 11/11/2023 2:00 PM CDT - 11/11/2023 3:54 PM CDT Surgery OR P4 [address] [place] [address] Donovan Sloan MD IRRIGATION AND DEBRIDEMENT, PERINEAL WOUND 11/11/2023 Orders Only Unspecified Department [place] Unknown, Provider 11/10/2023 4:31 PM CDT Anesthesia Event OR P4 [address] [place] [address] Dontae Higgins MD Bradstock, Michael W, MD 11/10/2023 4:00 PM CDT - 11/10/2023 5:42 PM CDT Surgery OR P4 [address] [place] [address] Zac Jackson MD Excisional debridement, PERINEAL NEC FASC 11/10/2023 Orders Only [facility] Radiology Department DANISHA [address] [place], [place] [address]mary. [address] [address] Provider, Outside Referral of patient (Primary Dx) from Last 3 Months Allergies No known active allergies Medications * [...] 14 mg/ 24hr transdermal patch 24 HRIndications:Parish hardik Dependence Apply 1 patch to skin daily. 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 Resolved Problems Problem Noted Date Diagnosed Date Resolved Date Hyperglycemia 11/10/2023 12/22/2023 Immunizations Name Administration Dates Next Due Diphtheria [...] 12/08/2023 2:00 PM CDT Plan of Treatment Not on file Procedures Procedure Name Priority Date/Time Associated Diagnosis [...] CDT Other acute osteomyelitis of left foot ([facility]) REVISION, AMPUTATION SITE, LOWER EXTREMITY Urgent (< 48 hrs) 12/10/2023 10:23 AM CDT Other acute osteomyelitis of left foot ([facility]) POC GLUCOSE Routine 12/10/2023 6:16 AM CDT [...] CDT Other acute osteomyelitis of left foot ([facility]) PC CULTURE FUNGI ISOLATION W-WO PRESUMPTIVE ID [...] CDT Other acute osteomyelitis of left foot ([facility]) PC CULTURE SPECIMEN, ANAEROBIC Routine 12/08/2023 7:51 AM CDT Other acute osteomyelitis of left foot ([facility]) POC GLUCOSE Routine 12/08/2023 7:22 AM CDT AMPUTATION FOOT Urgent (< 48 hrs) 12/08/2023 7:12 AM CDT Other acute osteomyelitis of left foot ([facility]) PC CULTURE,BACTERIAL,DEF INATIVE,AEROBIC;BLOOD STAT 12/07/2023 4:05 PM [...] Routine 12/07/2023 3:23 PM CDT 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 Vancomycin 17.0 mcg/mL [facility] Comment:Expected Range (Trou gh): 10-20 mcg/ml Blood 12/13/2023 5:24 PM CDT 12/13/2023 5:46 PM CDT Narrative [facility] - 12/13/2023 6:34 PM CDT Please ensure trough level drawn prior to next vancomycin dose. Thank you Peak or trough:->Trough Eusebio Perez PharmD LABORATORY [facility] [address] [address] * (ABNORMAL) CBC WITH PLTS/AUTO DIFF (12/11/2023 5:50 AM CDT) Only the most recent of8 resultswithin the time period is included. [facility] WBC 8.72 4.00 - 10.00 k/cmm [facility] RBC 3.82(L) 4.60 - 6.00 m/cmm [facility] Hgb 10.6(L) 13.1 - 17.5 g/dL [facility] Hematocrit 32.4(L) 40.0 - 51.0 % [facility] MCV 84.8 80.0 - 100.0 fL [facility] MCH 27.7 25.0 - 32.0 pg [facility] MCHC 32.7 31.0 - 36.0 g/dL [facility] RDW 13.5 11.5 - 14.5 % [facility] Plt 400 150 - 400 k/cmm [facility] MPV 9.3 6.5 - 12.5 fL [facility] Automated Abs Neutrophil 4.22 1.70 - 6.50 k/cmm [facility] Comment:Preliminary ANC, Fin al Result to Follow Abs Immature Granulocyte 0.09 0.00 - 0.09 k/cmm [facility] Comment:The Immature Granulo cyte Absolute count contains metamyelocytes and myelocytes. Abs Neutrophil 4.22 1.70 - 6.50 k/cmm [facility] Abs Lymphocyte 2.59 0.80 - 4.00 k/cmm [facility] Abs Monocyte 1.00 0.20 - 1.00 k/cmm [facility] Abs Eosinophil 0.79(H) 0.00 - 0.60 k/cmm [facility] Abs Basophil 0.03 0.00 - 0.20 k/cmm [facility] Blood 12/11/2023 5:50 AM CDT 12/11/2023 6:26 AM CDT Igor Glover MD LABORATORY Performing Organization Address City/[facility]/ZIP Co de Phone Number [facility] [address] [address] * (ABNORMAL) PANEL BASIC METABOLIC (BMP) (12/11/2023 5:50 AM CDT) Only the most recent of17 resultswithin the time period is included. CO2 25 22 - 30 mmol/L [facility] Glucose 178(H) 70 - 100 mg/dL [facility] BUN 9 6 - 20 mg/dL [facility] Creatinine 0.92 0.70 - 1.25 mg/dL [facility] Calcium 9.0 8.6 - 10.0 mg/dL [facility] Sodium 136 135 - 148 mmol/L [facility] Potassium 4.1 3.5 - 5.3 mmol/L [facility] Chloride 100 92 - 108 mmol/L [facility] eGFR (2020 CKD-EPI) 105 >=60 ml/min/1.7 3m2 [facility] Comment: The estimated glomerular filtration rate (eGFR) was calculated using the CKD-EPI 2020 creatinine equation, which does not include race as a factor. This equation is validated in individuals 18 years of age and older, and eGFR is normalized to a body surface area of 1.73m^2. AnGap 11 8 - 16 mmol/L [facility] Blood 12/11/2023 5:50 AM CDT 12/11/2023 6:25 AM CDT Igor Glover MD LABORATORY Performing Organization Address City/[facility]/ZIP Co de Phone Number [facility] [address] [address] * XR CHEST 2 VIEWS PA + [...] ?12/10/2023 12:07 CDT ? Accession Number: ? [id number] ? Surgical Pathology Final Report Specimen Type: [...] confirmed the diagnosis. ? Signed - Greg Regalado M.D. Attending Pathologist. DDB/FRACISCO 12.10.2023 13:39 [facility] AP Specimen FOOT STRUCTURE / Unknown 12/10/2023 11:07 AM CDT Comment:OR: Routine gross an d microscopic examination Tissue: 1st metatarsel left foot, cut margin Site: foot Additional clinical information: Suzy Patino Morelia LAB PATHOLOGY [facility] [address] [address] * HBO TCO2 MEASUREMENT COMPLETE (12/09/2023 10:25 [...] Reg 2002; 10:198-207. Bridget QUIÑONEZ et al. [facility] 2009, Vol. 36(1). ? [place] 07/27/13 Suzy Shafer PA-C HYPERBARIC CHAMBE R * (ABNORMAL) SED RATE (ESR) (12/08/2023 4:47 PM CDT) Only the most recent of3 resultswithin the time period is included. Sed Rate 120(H) 2 - 10 mm/hr [facility] Blood 12/08/2023 4:47 PM CDT 12/08/2023 5:07 PM CDT Suzy Shafer PA-C LABORATORY [facility] [address] [address] * (ABNORMAL) GLYCOSYLATED HGB - A1C (12/08/2023 4:47 PM CDT) Hemoglobin A1C 8.5(H) 4.0 - 5.6 % [facility] Comment: Increased risk for diabetes (prediabetes): 5.7-6.4% Diabetes >=6.5% In the absence of unequivocal hyperglycemia, diagnosis requires two abnormal test results (i.e. HbA1c and glucose) or two abnormal results from specimens collected at two different timepoints. The presence of some hemoglobin variants or red cell disorders may interfere with the measurement of hemoglobin A1c (HbA1c). Estimated Average Glucose 197(H) 68 - 114 [facility] Comment: The estimated Average Glucose (eAG) was calculated using an equation derived from a study of 507 adults with type 1, type 2, or no diabetes. Minority populations were underrepresented and children were not included. The eAG is not equivalent to a fasting glucose concentration. Blood 12/08/2023 4:47 PM CDT 12/08/2023 5:07 PM CDT Narrative [facility] - 12/08/2023 6:01 PM CDT If not done in the last 30 days. Suzy Shafer PA-C LABORATORY Performing Organization Address City/[facility] Co de Phone Number [facility] [address] [address] * (ABNORMAL) C-REACTIVE PROTEIN (12/08/2023 4:47 PM CDT) Only the most recent of2 resultswithin the time period is included. C-Reactive Protein 77(H) <=4 mg/L [facility] Blood 12/08/2023 4:47 PM CDT 12/08/2023 5:07 PM CDT Suzy Shafer PA-C LABORATORY Performing Organization Address [facility] Co de Phone Number [facility] [address] [address] * (ABNORMAL) CBC WITH PLATELET (12/08/2023 4:47 PM CDT) Only the most recent of8 resultswithin the time period is included. WBC 10.39(H) 4.00 - 10.00 k/cmm [facility] RBC 3.59(L) 4.60 - 6.00 m/cmm [facility] Hgb 9.8(L) 13.1 - 17.5 g/dL [facility] Hematocrit 30.8(L) 40.0 - 51.0 % [facility] MCV 85.8 80.0 - 100.0 fL [facility] MCH 27.3 25.0 - 32.0 pg [facility] MCHC 31.8 31.0 - 36.0 g/dL [facility] RDW 13.5 11.5 - 14.5 % [facility] Plt 314 150 - 400 k/cmm [facility] MPV 9.3 6.5 - 12.5 fL [facility] Blood 12/08/2023 4:47 PM CDT 12/08/2023 5:07 PM CDT Suzy Shafer PA-C LABORATORY Performing Organization Address [facility] de Phone Number [facility] [address] [address] * (ABNORMAL) TISSUE CULTURE:INCLUDES GRAM STAIN (12/08/2023 7:51 AM CDT) Only the most recent of5 resultswithin the time period is included. Final Report Positive Culture Few METHICILLIN RESISTANT Staphylococcus aureus (MRSA) isolated. 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 For susceptibility, see previous report on culture from wound culture collected 12/07/23. (POS) [facility] Organism METHICILLIN RESISTANT STAPHYLOCOCCUS AUREUS (MRSA)(POS) [facility] Gram Stain Report Corrected Report Positive Gram stain Rare PMN's seen. Rare gram positive cocci. Gram stain electronically reported to and acknowledged by: Dr. Healy Marker from OR at ??12/08/2023 10:09:09 by Jacklyn Easley MLS. Removed Pleomorphic gram variable bacilli from report. Results electronically reported to and acknowledged by: Dr. Igor Glover [facility] [place] 12/09/2023 12:48:27. Elizabeth Schwartz MLS. (POS) [facility] Bone STRUCTURE OF LEFT FOOT / Unknown 12/08/2023 7:51 AM CDT 12/08/2023 9:00 AM CDT Comment:2. Bone first metata rsal left foot Che Campos DPM LAB MICROBIOLOGY Performing Organization Address [facility] Co de Phone Number [facility] [address] [address] * FUNGUS CULTURE:INCLUDES SUHAS (12/08/2023 7:51 AM CDT) Only the most recent of6 resultswithin the time period is included. Final Report No fungus isolated. [facility] SUHAS Prep No fungal elements seen. [facility] Bone STRUCTURE OF LEFT FOOT / Unknown 12/08/2023 7:51 AM CDT 12/08/2023 9:00 AM CDT Comment:2. Bone first metata rsal left foot Chekatelin Campos [facility] LAB MICROBIOLOGY Performing Organization Address [facility] de Phone Number [facility] [address] [address] * ANAEROBE CULTURE (12/08/2023 7:51 AM CDT) Only the most recent of6 resultswithin the time period is included. Final Report No anaerobes isolated. [facility] Bone STRUCTURE OF LEFT FOOT / Unknown 12/08/2023 7:51 AM CDT 12/08/2023 9:00 AM CDT Comment:2. Bone first metata rsal left foot Che Campos [facility] LAB MICROBIOLOGY Performing Organization Address [facility] de Phone Number [facility] [address] [address] * EXTRA TUBE - DARK GREEN (12/07/2023 4:05 PM CDT) DARK GREEN TUBE Stored [facility] Comment:Dark Green tubes (Li thium Heparin) are stored in the lab for 1 day from the collection date. Blood 12/07/2023 4:05 PM CDT 12/07/2023 4:24 PM CDT Eusebio Vivar MD LABORATORY Performing Organization Address [facility] Co de Phone Number [facility] [address] [address] * EXTRA TUBE - BLUE (12/07/2023 4:05 PM CDT) BLUE TUBE [facility] Comment:Blue top(Sodium citr ate) tubes are kept for 3 days from the collection date. Blood 12/07/2023 4:05 PM CDT 12/07/2023 4:24 PM CDT Eusebio Vivar MD LABORATORY [facility] [address] [address] * (ABNORMAL) ED CHEMISTRY LABS(NA,K,CL,CO2,GLU,CREAT,CA-IONIZED,ANION GAP) (12/07/2023 4:05 PM CDT) Only the most recent of2 resultswithin the time period is included. Sodium 139 135 - 148 mmol/L [facility] Chloride 97 92 - 108 mmol/L [facility] AnGap 15 8 - 16 mmol/L [facility] Glucose 284(H) 70 - 100 mg/dL [facility] ICA, Actual 4.89 4.40 - 5.20 mg/dL [facility] ICA, pH Corrected 4.74 4.40 - 5.20 mg/dL [facility] Creatinine 1.26(H) 0.70 - 1.25 mg/dL [facility] BICARB 26 22 - 26 mEq/L [facility] eGFR (2020 CKD-EPI) 72 >=60 ml/min/1.7 3m2 [facility] Comment: The estimated glomerular filtration rate (eGFR) was calculated using the CKD-EPI 2020 creatinine equation, which does not include race as a factor. This equation is validated in individuals 18 years of age and older, and eGFR is normalized to a body surface area of 1.73m^2. Potassium 4.5 3.5 - 5.3 mmol/L [facility] Blood 12/07/2023 4:05 PM CDT 12/07/2023 4:27 PM CDT Eusebio Vivar MD LABORATORY [facility] [address] [address] * LACTATE (LACTIC ACID) (12/07/2023 4:05 PM CDT) Only the most recent of3 resultswithin the time period is included. Lactate 2.1 0.7 - 2.1 mmol/L [facility] Blood 12/07/2023 4:05 PM CDT 12/07/2023 4:27 PM CDT Narrative [facility] - 12/07/2023 4:27 PM CDT Send specimen on ice! Eusebio Vivar MD LABORATORY Performing Organization Address [facility] de Phone Number [address] [address] * BLOOD AEROBIC/ANAEROBIC CULTURE (12/07/2023 4:05 PM CDT) Only the most recent of3 resultswithin the time period is included. Final Report No growth after 5 days. [facility] Blood (Peripheral) 12/07/2023 4:05 PM CDT 12/07/2023 7:55 PM CDT Eusebio Vivar MD LAB MICROBIOLOGY Performing Organization Address [facility] de Phone Number [address] [address] * (ABNORMAL) WOUND CULTURE:GRAM STAIN OPTIONAL (12/07/2023 3:00 PM CDT) Only the most recent of2 resultswithin the time period is included. Final Report Rare METHICILLIN RESISTANT Staphylococcus aureus (MRSA) isolated. 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 Rare Corynebacterium striatum group isolated. A member of the diphtheroid bacilli. (POS) [facility] Organism METHICILLIN RESISTANT STAPHYLOCOCCUS AUREUS (MRSA)(POS) [facility] Organism CORYNEBACTERIUM STRIATUM GROUP(POS) [facility] Gram Stain Report No PMN's seen. No organisms seen. [facility] Swab STRUCTURE OF LEFT FOOT / Unknown 12/07/2023 3:00 PM CDT 12/07/2023 5:23 PM CDT Narrative [facility] - 12/10/2023 10:38 AM CDT Left [...] (MRSA) Vancomycin MICROSCAN JORDY 1: Sensitive Che Campos DPM LAB MICROBIOLOGY Performing Organization Address [facility]/State/ZIP Co de Phone Number [facility] [address] [place] [id number] * (ABNORMAL) CYSTATIN C (11/22/2023 9:23 AM CDT) Only the most recent of4 resultswithin the time period is included. Cystatin C 1.43(H) 0.61 - 0.95 mg/L [facility] eGFR by Cystatin C 51(L) >=60 ml/min/1.7 3m2 [facility] Comment: Estimated GFR calculated using the CKD-EPI Cystatin C (2012) equation. Stage ? Description ?eGFR Range ??1.......Normal or increased eGFR.......90 or Greater ??2.......Mildly decreased eGFR..........60-89 ??3.......Moderately decreased eGFR......30-59 ??4.......Severely decreased eGFR........15-29 ??5.......Kidney Failure.................Less than 15 Blood 11/22/2023 9:23 AM CDT 11/22/2023 2:05 PM CDT Zac Jackson MD LABORATORY [facility] [address] [address] * TELEMETRY STRIPS (11/18/2023 9:35 PM CDT) Only the most recent of17 resultswithin the time period is included. Narrative 11/18/2023 9:35 PM CDT Ordered by an unspecified provider. Provider Unknown RAD ECHO * ANTI XA ASSAY LMW HEPARIN (11/17/2023 11:47 AM CDT) Anti XA LMW <0.04 IU/mL [facility] Comment: Anti Xa Assay LMW Heparin Therapeutic Ranges: 0.4-1.1 IU/mL for twice daily 1.0-2.0 IU/mL for once daily Blood 11/17/2023 11:4 7 AM CDT 11/17/2023 12:01 PM CDT Zac Jackson MD LABORATORY Performing Organization Address [facility] Co de Phone Number [facility] [address] [address] * AFB CULTURE:INCLUDES AFB SMEAR (11/17/2023 9:35 AM CDT) Only the most recent of3 resultswithin the time period is included. Final Report No acid fast bacilli isolated. [facility] Acid Fast Stain No acid fast bacilli seen. [facility] Tissue TOE STRUCTURE / Unknown 11/17/2023 9:35 AM CDT Che Campos DPM LAB MICROBIOLOGY Performing Organization Address [facility] Co de Phone Number [facility] [address] [address] * M TUBERCULOSIS AMPLIFICATION (11/17/2023 9:32 AM CDT) Only the most recent of2 resultswithin the time period is included. Final Report M. tuberculosis complex DNA not detected. [facility] Tissue TOE STRUCTURE / Unknown 11/17/2023 9:32 AM CDT 11/18/2023 9:56 AM CDT Comment:1: Left hallux soft tissue dirty Narrative [facility] - 11/18/2023 2:41 PM CDT This assay uses PCR nucleic acid amplification to detect Mycobacterium tuberculosis complex DNA. ??This test was developed and its performance characteristics determined by [facility]. ??It has not been cleared or approved by the U.S. Food and Drug Administration. ??FDA does not require this test to go through premarket FDA review. ??This test is used for clinical purposes. ??It should not be regarded as investigational or for research. ??[facility] is certified under the Clinical Laboratory Improvement Amendments of 1988 (CLIA) as qualified to perform high complexity clinical laboratory testing. Che Campos [facility] MICROBIOLOGY [facility] [address] [address] * ULT ARTERIAL LOWER EXTREMITY LEFT (11/17/2023 [...] Radiologist: Praful Woodson Reading Resident: Douglas Baldwin Narrative 11/17/2023 10:02 AM CDT EXAM: [...] AM CDT) Hep C Lilly Nonreactive Nonreactive [facility] Comment:Performance characte ristics have not been established with this test on patients less than 10 years of age. Blood 11/15/2023 7:39 AM CDT 11/15/2023 7:58 AM CDT Zac Jackson MD LABORATORY [facility] [address] [address] * HIV COMBO (11/15/2023 7:39 AM CDT) [facility] HIV Antigen-Antibody Nonreactive Nonreactive [facility] Comment:Performance characte ristics have not been established with this test on patients less than 2 years of age. Blood 11/15/2023 7:39 AM CDT 11/15/2023 7:58 AM CDT Zac Jackson MD LABORATORY Performing Organization Address City/[facility] Co de Phone Number [facility] [address] [address] * (ABNORMAL) CREATININE, SERUM (11/15/2023 7:39 AM CDT) [facility] Creatinine 2.83(H) 0.70 - 1.25 mg/dL [facility] eGFR (2020 CKD-EPI) 27(L) >=60 ml/min/1.7 3m2 [facility] Comment: The estimated glomerular filtration rate (eGFR) was calculated using the CKD-EPI 2020 creatinine equation, which does not include race as a factor. This equation is validated in individuals 18 years of age and older, and eGFR is normalized to a body surface area of 1.73m^2. Blood 11/15/2023 7:39 AM CDT 11/15/2023 7:58 AM CDT Shani Shaw MD LABORATORY [facility] [address] [address] * (ABNORMAL) PROTEIN TO CREAT RATIO,URINE (11/14/2023 9:58 AM CDT) Pathologist [facility] TPU 22(H) 0 - 11 mg/dL [facility] Creat Urine 89 30 - 125 mg/dL [facility] Protein to Creat Ratio, Ur 0.25(H) 0.00 - 0.06 mg/mg [facility] Urine 11/14/2023 9:58 AM CDT 11/14/2023 10:06 AM CDT Zac Jackson MD LABORATORY Performing Organization Address [facility] Co de Phone Number [facility] [address] [address] * (ABNORMAL) URINALYSIS,TOTAL (11/14/2023 9:58 AM CDT) Only the most recent of2 resultswithin the time period is included. Color YELLOW YELLOW [facility] Appearance CLEAR CLEAR [facility] Urine Glucose 500(A) NEGATIVE mg/dL [facility] Bili UA NEGATIVE NEGATIVE [facility] Ketones NEGATIVE NEGATIVE [facility] Specific [place] 1.012 1.003 - 1.030 [facility] Blood Ur NEGATIVE Neg-Trace [facility] PH Urine 5.5 5.0 - 7.0 [facility] Protein Ur TRACE Neg-Trace [facility] Urobilinogen NORMAL NORMAL EU/dL [facility] Nitrite Ur NEGATIVE NEGATIVE [facility] Leuk Est NEGATIVE Neg-Trace [facility] WBC Ur 0-5 0 - 5 perHPF [facility] RBC Ur 0-3 0 - 3 perHPF [facility] Mucus 1+ perLPF [facility] Urinalysis Performed at: [facility] Urine 11/14/2023 9:58 AM CDT 11/14/2023 10:06 AM CDT Zac Jackson MD LABORATORY Performing Organization Address [facility] de Phone Number [facility] [address] [address] * PHOSPHORUS (11/14/2023 5:30 AM CDT) Only the most recent of3 resultswithin the time period is included. Phosphorus 4.3 2.5 - 4.5 mg/dL [facility] Blood 11/14/2023 5:30 AM CDT 11/14/2023 5:56 AM CDT Zac Jackson MD LABORATORY Performing Organization Address [facility] Co de Phone Number [facility] [address] [address] * MAGNESIUM (11/14/2023 5:30 AM CDT) Only the most recent of3 resultswithin the time period is included. Magnesium 2.4 1.6 - 2.6 mg/dL [facility] Blood 11/14/2023 5:30 AM CDT 11/14/2023 5:56 AM CDT Zac Jackson MD LABORATORY Performing Organization Address City/[facility] Co de Phone Number [facility] [address] [address] * URINE CHLAMYDIA AND NEISSERIAE GONORRHOEAE AMPLIFICATION (11/13/2023 10:45 AM CDT) Chlamydia Amplification - Urine Negative Negative [facility] Comment:Test performed by tr anscription mediated amplification and is FDA approved for genital and urine specimens. N. Gonorrhea Amplification - Urine Negative Negative [facility] Comment:Test performed by tr anscription mediated amplification and is FDA approved for genital and urine specimens. Urine 11/13/2023 10:4 5 AM CDT 11/13/2023 3:03 PM CDT Narrative [facility] - 11/15/2023 12:29 PM CDT For Urines, use first void. Zac Jackson MD LABORATORY Performing Organization Address City/[facility]/ZIP Co de Phone Number [facility] [address] [address] * HEPATITIS B SURFACE ANTIGEN (11/13/2023 10:20 AM CDT) HBV Surface Ag Nonreactive Nonreactive [facility] Comment: Testing performed at: [facility] [address] [address] Blood 11/13/2023 10:2 0 AM CDT 11/13/2023 10:27 AM CDT Zac Jackson MD LABORATORY [facility] [address] [address] * HEPATITIS B SURFACE ANTIBODY (11/13/2023 10:20 AM CDT) HBsAb Quant <3.31 mIU/ml [facility] Comment:The Hepatitis B Surf gabriella Antibody quantitation is less than 8.00 mIU/mL. There is no evidence of an antibody response to a hepatitis B vaccination or recovery from a hepatitis B infection. This patient is presumed non-immune to hepatitis B. HBsAb Interpretation Nonreactive [facility] Blood 11/13/2023 10:2 0 AM CDT 11/13/2023 10:27 AM CDT Zac Jackson MD LABORATORY Performing Organization Address [facility] Co de Phone Number [facility] [address] [address] * RPR SYPHILIS SCREEN (11/12/2023 11:10 PM CDT) Pathologist [facility] RPR Screen Non-Reactive Non-Reacti ve [facility] RPR Titer Not Reflexed [facility] Blood 11/12/2023 11:1 0 PM CDT 11/12/2023 11:40 PM CDT Zac Jackson MD LABORATORY Performing Organization Address [facility] de Phone Number [facility] [address] [address] * Intubation/Airway (11/11/2023 2:55 PM CDT) Narrative [...] CDT) Magnesium 1.2(L) 1.6 - 2.6 mg/dL [facility] Blood 11/11/2023 5:36 AM CDT 11/11/2023 5:45 AM CDT Zac Jackson MD LABORATORY Performing Organization Address City/[facility]/ZIP Co de Phone Number [facility] [address] [address] * ICU PHOSPHORUS (11/11/2023 5:36 AM CDT) Pathologist [facility] Phosphorus 2.9 2.5 - 4.5 mg/dL [facility] Blood 11/11/2023 5:36 AM CDT 11/11/2023 5:45 AM CDT Zac Jackson MD LABORATORY Performing Organization Address City/[facility] Co de Phone Number [facility] [address] [address] * (ABNORMAL) ICU CBC WITH PLTS/AUTO DIFF (11/11/2023 5:36 AM CDT) WBC 17.41(H) 4.00 - 10.00 k/cmm [facility] RBC 2.72(L) 4.60 - 6.00 m/cmm [facility] Hgb 7.8(L) 13.1 - 17.5 g/dL [facility] Hematocrit 24.1(L) 40.0 - 51.0 % [facility] MCV 88.6 80.0 - 100.0 fL [facility] MCH 28.7 25.0 - 32.0 pg [facility] MCHC 32.4 31.0 - 36.0 g/dL [facility] RDW 13.2 11.5 - 14.5 % [facility] Plt 203 150 - 400 k/cmm [facility] MPV 10.1 6.5 - 12.5 fL [facility] Automated Abs Neutrophil 13.29(H) 1.70 - 6.50 k/cmm [facility] Comment:Preliminary ANC, Fin al Result to Follow [place] Cell Slight [facility] Toxic Gran Present [facility] Toxic Vac Present [facility] Abs Neutrophil 13.41(H) 1.70 - 6.50 k/cmm [facility] Abs Lymphocyte 2.96 0.80 - 4.00 k/cmm [facility] Abs Monocyte 0.87 0.20 - 1.00 k/cmm [facility] Abs Basophil 0.17 0.00 - 0.20 k/cmm [facility] Blood 11/11/2023 5:36 AM CDT 11/11/2023 5:45 AM CDT Zac Jackson MD LABORATORY [facility] [address] [address] * (ABNORMAL) ICU PANEL BASIC METABOLIC (BMP) (11/11/2023 5:36 AM CDT) AnGap 9 8 - 16 mmol/L [facility] BUN 15 6 - 20 mg/dL [facility] Calcium 6.0(AA) 8.6 - 10.0 mg/dL [facility] Comment:Critical Result Low Chloride 108 92 - 108 mmol/L [facility] CO2 22 22 - 30 mmol/L [facility] Glucose 135(H) 70 - 100 mg/dL [facility] Creatinine 0.93 0.70 - 1.25 mg/dL [facility] Potassium 3.2(L) 3.5 - 5.3 mmol/L [facility] eGFR (2020 CKD-EPI) 103 >=60 ml/min/1.7 3m2 [facility] Comment: The estimated glomerular filtration rate (eGFR) was calculated using the CKD-EPI 2020 creatinine equation, which does not include race as a factor. This equation is validated in individuals 18 years of age and older, and eGFR is normalized to a body surface area of 1.73m^2. Sodium 139 135 - 148 mmol/L [facility] Blood 11/11/2023 5:36 AM CDT 11/11/2023 5:45 AM CDT Narrative [facility] - 11/11/2023 6:25 AM CDT Critical value for Calcium called to and read back by Sheila Dias RN in STN4 at 11/11/2023 06:24:12 CDT by Larry Fuchs MLS. Zac Jackson MD LABORATORY Performing Organization Address [facility] Co de Phone Number [facility] [place] [phone] * (ABNORMAL) TROP 6H (11/10/2023 10:15 PM CDT) 6H Trop 35 <=35 ng/L [facility] 6H Delta Significan t(A) Not Significant [facility] Blood 11/10/2023 10:1 5 PM CDT 11/10/2023 10:31 PM CDT Jessica Madrigal MD LABORATORY Performing Organization Address [facility] Co de Phone Number [facility] [address] [address] * (ABNORMAL) TROP 2H (11/10/2023 6:34 PM CDT) 2H Trop 21 <=35 ng/L [facility] 2H Delta Significan t(A) Not Significant [facility] Blood 11/10/2023 6:34 PM CDT 11/10/2023 6:37 PM CDT Jessica Madrigal MD LABORATORY Performing Organization Address [facility] Co de Phone Number [facility] [address] [address] * Intubation/Airway (11/10/2023 4:46 PM CDT) Narrative [...] mucosa unchanged and dentition unchanged Performed by: CAREER INFORMATION SPECIALIST: Suzy Tam APRN, CRNA Additional Notes [...] 348 ms QTC Interval 405 ms P [place] 35 QRS [place] 1 T Wave [place] 148 Narrative Procedure Note Jessica Madrigal MD - 11/10/2023 IMPRESSION S[address]US TACHYCARDIA MINIMAL ST DEPRESSION [0.025+ mV ST DEPRESSION] ABNORMAL QRS-T ANGLE [QRS-T AXIS DIFFERENCE > 60] NONSPECIFIC ST AND T WAVE ABNORMALITY. 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 ??No initial report accompanied the patient and/or Dr. ??JESSICA MADRIGAL requested an interpretation by me. Technique: ??CT scan of the left lower extremity done on 11/10/2023 with IV contrast. 2 mm axial, sagittal and coronal reconstructions reviewed in soft tissue and bone windows, per the local institution's scanning protocols, which may differ from the [facility] trauma protocols. 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 Additionally there is subcutaneous emphysema in the first digit of the left foot and fat stranding throughout soft tissues extending to the MCP joint. No organized fluid collections. Subchondral cystic changes within the tarsals and metacarpophalangeal joints. ??Severe degenerative changes of the right hip. Procedure Note Praful Woodson MBBS - 11/10/2023 Indication: Patient transferred from [facility] due toFournier's gangrene. No initial report accompanied the patient and/or Dr.ROCHELLE MADRIGAL requested an interpretation by me. Technique: CT scan of the left lower extremity done on 11/10/2023 with IVcontrast. 2 mm axial, sagittal and coronal reconstructions reviewed insoft tissue and bone windows, per the local institution's scanningprotocols, which may differ from the [facility] protocols. 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 ??No initial report accompanied the patient and/or Dr. ??JESSICA MADRIGAL requested an interpretation by me. Technique: ??CT scan of the abdomen/pelvis done on 11/10/2023 ??with IV contrast. ??3 mm axial, sagittal and coronal reconstructions reviewed in soft tissue and bone windows, per the local institution's scanning protocols, which may differ from the [facility] trauma protocols. Comparison: Same day scrotal ultrasound. [...] MBBS - 11/10/2023 Indication: Patient transferred from [facility] due toFournier's gangrene. No initial report accompanied the patient and/or .JESSICA MADRIGAL requested an interpretation by me. Technique: CT scan of the abdomen/pelvis done on 11/10/2023 with IVcontrast. 3 mm axial, sagittal and coronal reconstructions reviewed insoft tissue and bone windows, per the local institution's scanningprotocols, which may differ from the [facility] trauma protocols. Comparison: Same day scrotal ultrasound. [...] CDT) ED INR 1.1 0.8 - 1.1 [facility] Comment: Warfarin Therapeutic Range: Standard Intensity: 2.0 - 3.0 High Intensity: 2.5 - 3.5 This is a rapid INR screening test which uses whole blood; results may infrequently differ from plasma INR results. If medication adjustments/dosing are required a PT/INR test ([id number]) should be ordered and performed in the main laboratory. Blood 11/10/2023 2:31 PM CDT 11/10/2023 2:41 PM CDT Jessica Madrigal MD LABORATORY Performing Organization Address City/[facility]/ZIP Co de Phone Number [facility] [address] [address] * EXTRA TUBE - SST (11/10/2023 2:31 PM CDT) [facility] SST TUBE Stored [facility] Comment:SST tubes (Serum Sep arator) are stored in the lab for 3 days from the collection date. Blood 11/10/2023 2:31 PM CDT 11/10/2023 2:43 PM CDT Jessica Madrigal MD LABORATORY Performing Organization Address [facility] Co de Phone Number [facility] [address] [address] * (ABNORMAL) HS TROPONIN (11/10/2023 2:31 PM CDT) [facility] HS Troponin I 49(H) <=35 ng/L [facility] Blood 11/10/2023 2:31 PM CDT 11/10/2023 2:57 PM CDT Narrative [facility] - 11/10/2023 3:25 PM CDT First Occurrence of the Troponin order is to be drawn Stat by Nursing staff on the unit. Jessica Madrigal MD LABORATORY Performing Organization Address City/[facility] Co de Phone Number [facility] [address] [address] * (ABNORMAL) ED HEMOGLOBIN TOTAL (ED ONLY) (11/10/2023 2:31 PM CDT) Hgb 12.4(L) 13.1 - 17.5 g/dL [facility] Blood 11/10/2023 2:31 PM CDT 11/10/2023 2:45 PM CDT Jessica Madrigal MD LABORATORY Performing Organization Address [facility] de Phone Number [facility] [address] [address] * (ABNORMAL) PANEL HEPATIC FUNCTION (11/10/2023 2:31 PM CDT) [facility] Total Protein 7.1 6.4 - 8.3 g/dL [facility] Albumin 2.9(L) 3.8 - 5.1 g/dL [facility] Bili Total 0.3 <=1.2 mg/dL [facility] Bili Direct <0.2 <=0.3 mg/dL [facility] Alk Phos 104 40 - 129 IU/L [facility] Comment:No reference range e stablished for patients <18 years old. ALT (SGPT) 9 <=41 IU/L [facility] AST(SGOT) 14 5 - 40 IU/L [facility] Blood 11/10/2023 2:31 PM CDT 11/10/2023 2:57 PM CDT Jessica Madrigal MD LABORATORY Performing Organization Address [facility] de Phone Number [facility] [address] [address] * (ABNORMAL) BLOOD GASES (11/10/2023 2:31 PM CDT) Pathologist [facility] PH Mayo 7.47(H) 7.32 - 7.42 [facility] PCO2 Mayo 38(L) 41 - 51 mmHG [facility] PO2 Mayo 75(H) 25 - 40 mmHG [facility] Bicarb Mayo 27 24 - 28 mEq/L [facility] O2 Sat Mayo 96 % [facility] Base Exc [place] 3.7(H) -10.0 - 2.0 mmol/L [facility] Blood Venous 11/10/2023 2:31 PM CDT 11/10/2023 2:45 PM CDT Jessica Madrigal MD LABORATORY Performing Organization Address City/[facility] Co de Phone Number [address] [address] * (ABNORMAL) FIBRINOGEN (11/10/2023 2:31 PM CDT) Fibrinogen >1,000(H) 200 - 400 mg/dL [facility] Blood 11/10/2023 2:31 PM CDT 11/10/2023 2:57 PM CDT Jessica Madrigal MD LABORATORY Performing Organization Address [facility] Co de Phone Number [address] [address] * ETHANOL (ETOH) LEVEL, BLOOD (11/10/2023 2:31 PM CDT) Ethanol Negative Negative g/dL [facility] Blood 11/10/2023 2:31 PM CDT 11/10/2023 2:57 PM CDT Jessica Madrigal MD LABORATORY Performing Organization Address [facility] Co de Phone Number [address] [address] * PTT (APTT) (11/10/2023 2:31 PM CDT) APTT 32.9 25.0 - 37.0 sec [facility] Blood 11/10/2023 2:31 PM CDT 11/10/2023 2:57 PM CDT Jessica Madrigal MD LABORATORY Performing Organization Address [facility] Co de Phone Number [facility] [address] [address] * PRECAUTIONARY TUBE (11/10/2023 2:29 PM CDT) Prec Tube Precautionary Blood Bank Specimen Received. [facility] Blood 11/10/2023 2:29 PM CDT 11/10/2023 2:49 PM CDT Jessica Madrigal MD LAB TRANSFUSION SER VICES Performing Organization Address [facility] Co de Phone Number [facility] [place] [phone] * ANTIBODY SCREEN (11/10/2023 2:29 PM CDT) Lilly Screen Negative [facility] Blood 11/10/2023 2:29 PM CDT 11/10/2023 2:49 PM CDT Jessica Madrigal MD LAB TRANSFUSION SER VICES Performing Organization Address [facility] Co de Phone Number [facility] [address] [address] * BLOOD TYPING-ABO/RH (11/10/2023 2:29 PM CDT) ABORHG A POS [facility] Blood 11/10/2023 2:29 PM CDT 11/10/2023 2:49 PM CDT Jessica Madrigal MD LAB TRANSFUSION SER VICES Performing Organization Address [facility] Co de Phone Number [facility] [address] [address] * ED US CRITICAL CARE (11/10/2023 2:28 PM CDT) Anatomical Region Laterality Modality Ultrasound Narrative 11/10/2023 3:16 PM CDT ED Critical Care Resuscitative Ultrasound ED Cardiac Ultrasound Body Areas Imaged: Heart, Chest Wall/Lungs, and Inferior Vena Cava Indications:Shock/Sepsis Window: Subxiphoid, Parasternal Short [place], Parasternal Long [place], Apical 4-Chamber, and Bilateral Lungs Findings: The [...] FILMS (11/10/2023 10:46 AM CDT) Narrative User, [id number] - 11/10/2023 3:20 PM CDT Outside Film Only Outside Provider RAD OUTSIDE FILMS from Last 3 Months Additional Health Concerns Infection Onset 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
--- OUTSIDE RECORDS SUMMARY | 2024-02-07 08:45 | XMS_ITS | Encounter Summary ---
Author Organization [facility] Address [address] [place] [address] Phone Care Team Providers Care Final Assembler Boat Name Role Phone Unavailable Primary Care Provider Unavailabl e Encounter Details Date Type Department Care Team (Late st Contact Info) Description 01/20/2024 9:54 AM CDT - 01/20/2024 11:59 PM CDT Hospital En[place] [facility] [place] [address] [facility] [address] [place], [place] [phone] SophiaDavid ward MD [address] [facility] [address] [place], [place] [phone] Routine, Hbo - [id number] Discharge Disposition: Discharged to home or self care Social History Tobacco Use Types Packs/Day Years [...] on file documented as of this encounter Last Filed Vital Signs Vital Sign Reading Time Taken Comments Blood Pressure 113/72 01/20/2024 9:00 AM CDT Pulse 93 01/20/2024 9:00 AM CDT Temperature 36.2 ??C (97.2 ??F) 01/20/2024 9:00 AM CD T Respiratory Rate 15 01/20/2024 9:00 AM CDT Oxygen Saturation 95% 01/20/2024 9:00 AM CDT Inhaled Oxygen Concentration - - Weight - - Height - - Body Mass Index - - documented in this encounter Medications at Time of Discharge Medication Sig Dispensed Refills Start Date End Date insulin GLARGINE (LANTUS) 100 units/mL subcutaneous injection vialIndications:Type 2 Diabetes Mellitus Inject 35 UNITS subcutaneously every twenty-four hours. Indications: Type 2 Diabetes 12/13/2023 insulin LISPRO (HUMALOG KWIKPEN) 100 UNIT/ML subcutaneous Kwikpen Inject 0.1 mL (10 UNITS) subcutaneously 3 times daily before meals. 12/13/2023 chlorhexidine (PERIDEX) 0.12% mouth/throat solutionIndications:Gi ngivitis Swish and spit 15 mL by mouth daily. Indications: Gum Inflammation 11/24/2023 docusate sodium (COLACE) 100 mg oral capsule Take 1 capsule (100 mg) by mouth twice daily as needed for Constipation. 11/24/2023 hydrOXYzine pamoate (VISTARIL) 25 mg oral capsuleIndications:Pru ritus Take 1-2 capsules (25-50 mg) by mouth every 6 hours as needed for Itching. Indications: Itching 11/24/2023 loratadine (CLARITIN) 10 mg oral tabletIndications:Seas onal Allergic Rhinitis Take 1 tablet (10 mg) by mouth daily. Indications: Hayfever 11/24/2023 milk of magnesia 400 mg/5 mL oral suspensionIndications: Acid Indigestion Take 15 mL by mouth daily as needed for Constipation. Indications: Acid Indigestion 11/24/2023 paliperidone palmitate ER (INVEGA SUSTENNA) 156 mg/mL IM injectionIndications:S chizoaffective Disorder Inject 1 mL (156 mg) into a muscle every month. Indications: Schizoaffective Disorder 11/24/2023 acetaminophen (TYLENOL) 325 mg oral tabletIndications:Feve r,Pain Take 3 tablets (975 mg) by mouth 3 times daily. Indications: Fever, Pain 11/24/2023 escitalopram (LEXAPRO) 20 mg oral tabletIndications:Gene ralized Anxiety Disorder Take 1 tablet (20 mg) by mouth at bedtime. Indications: Generalized Anxiety Disorder 11/24/2023 rosuvastatin (CRESTOR) 10 mg oral tabletIndications:Mixe d Dyslipidemia Take 1 tablet (10 mg) by mouth at bedtime. Indications: Elevation of Both Cholesterol and Triglycerides in Blood 11/24/2023 traZODone (DESYREL) 50 mg oral tabletIndications:Inso mnia Take 1 tablet (50 mg) by mouth at bedtime. Indications: Trouble Sleeping 11/24/2023 amLODIPine (NORVASC) 10 mg oral tabletIndications:Hype rtension Take 1 tablet (10 mg) by mouth daily. Indications: High Blood Pressure Disorder 11/24/2023 bisacodyl (DULCOLAX) 10 mg rectal suppositoryIndications :Constipation 1 suppository (10 mg) by Rectal route daily as needed for Constipation. Indications: Constipation 11/24/2023 cyclobenzaprine (FLEXERIL) 10 mg oralIndications:Muscle Spasm Take 1 tablet (10 mg) by mouth 3 times daily. Indications: Muscle Spasm 11/24/2023 nicotine (NICOTROL) 14 mg/ 24hr transdermal patch 24 HRIndications:Nicotine Dependence Apply 1 patch to skin daily. Indications: Nicotine Addiction 11/25/2023 nicotine polacrilex (NICORELIEF) 2 mg mouth/throat gumIndications:Nicotin e Dependence 1 each (2 mg) by Gum route every 1 hour as needed for Nicotine Craving. Indications: Nicotine Addiction 11/24/2023 ondansetron (ZOFRAN) 4 mg oral TABSIndications:Nausea and Vomiting Take 1 tablet (4 mg) by mouth every 6 hours as needed for Nausea/Vomiting. Indications: Nausea and Vomiting 11/24/2023 polyethylene glycol 3350 (MIRALAX;GLYCOLAX) 17 g oral packetIndications:Cons tipation Take 17 g by mouth daily. Indications: ConstipationTake 1 capful to 17 gm zo mixed with full glass of water every day as directed. 11/25/2023 sennosides (SENOKOT) 17.2 mg oral TABSIndications:Fourni ers gangrene (HHS) Take 1 tablet (17.2 mg) by mouth twice daily. 11/24/2023 prazosin (MINIPRESS) 1 mg oral capsuleIndications:Hyp ertension Take 1 capsule (1 mg) by mouth at bedtime. Indications: High Blood Pressure Disorder 11/24/2023 documented as of this encounter Progress Notes * Kit Mcconnell MD - 01/20/2024 10:30 AM CDT Hyperbaric Oxygen Treatment Note Stephanie Low Date: 01/20/2024 Treatment Indication(s): Non healing diabetic ulceration (Pepe > 3) s/p failed L hallux amputation with dehiscence/flapfailure; recurrence of infection necessitating repeat surgical intervention and broad spectrum antibiotics Osteomyelitis Treatment Number: 20 Interval history: The patient reports no local pain, erythema, or drainage at his surgical site. Hehas completed 20 treatments and wishes to be done with HBO which is consistent with our planned therapy. We discussed our availability should tissue compromise or future surgical intervention develop/be required. HPI, problem list, nursing notes, flowsheet and vital signs reviewed. Treatment was uneventful, able to complete treatment without difficulty. BP 113/72 Pulse 93 Temp 36.2 ??C (97.2 ??F) (Temporal) Resp 15 SpO2 95% Plan: Minimum of 20 treatments with possibility of extension of the treatment series pending response to treatment 01/19 pods follow up Please do not hesitate to call the Hyperbaric Department at [phone] during clinic hours or page monitoring and evaluation advisor staff with any updates, questions, or concerns. Associated attestation - David Cortes MD - 01/20/2024 2:49 PM CDT Continuous attending physician supervision was provided throughout the hyperbaric oxygen treatment.I have reviewed and agree with treatment note created by the Hyperbaric Medicine Fellow, Dr. Mcconnell. David Cortes MD, 01/20/2024 2:49 PM * David Cortes MD - 01/20/2024 10:30 AM CDT [facility] [place]IC[place]REAT[place] SUMMARY Consulting physician: Dr. Julio Cortes M.D. Consult Date: 12/09/23 Stephanie Low underwent a total of 20 hyperbaric oxygen treatments between the dates of 12/11/23 and 01/20/24 for the treatment of a high grade (Pepe > 3) ulceration s/p failed hallux amputationwith dehiscence/flap failure. Each treatment was at 2.5 TOSHA for 90 minutes on 100% oxygen. Overall the patient did well with his treatments and would be considered a success for significant improvement of his wound. He had no compliance issues during the course of his therapy sessions. We discussed and urged continued close follow up with his Director Of Channel Marketing for local wound care and monitoring. We noted our availability should future concern of complicated wound develop or as needed surrounding and in support of surgical interventions. Please do not hesitate to call the Hyperbaric Department at [phone] during clinic hours or page monitoring and evaluation advisor staff with any updates, questions, or concerns. Kit Mcconnell MD Hyperbaric Medicine Fellow I reviewed, edited and agree with the treatment summary. David Cortes MD, 01/20/2024 2:51 PM documented in this encounter Plan of Treatment Not on file documented as of this encounter Visit Diagnoses Diagnosis Soft tissue infection- Primary Unspecified infectious and parasitic diseases Other acute osteomyelitis of left foot ([facility]) documented in this encounter Additional Health Concerns Infection Onset Date Last Indicated Resolved Time 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
--- OUTSIDE RECORDS SUMMARY | 2024-02-07 08:45 | XMS_ITS | Encounter Summary ---
Author Organization [facility] Address [address] [place] [phone] Phone Care Team Providers Care Revenue Analyst Name Role Phone Unavailable Primary Care Provider Unavailabl e Encounter Details Date Type Department Care Team (Latest Contact Info) Description 01/18/2024 Travel Social History Tobacco Use Types Packs/Day [...]
--- OUTSIDE RECORDS SUMMARY | 2024-02-07 08:45 | XMS_ITS | Encounter Summary ---
Author Organization [facility] Address [address] [place] [phone] Phone Care Team Providers Care Manager Package Name Role Phone Unavailable Primary Care Provider Unavailabl e Reason for Visit * Reason Comments Follow-up Encounter Details Date Type Department Care Team (Late st Contact Info) Description 01/20/2024 1:30 PM CDT [facility] [address] [address] Afshan Sims, DPMore[place] [address] [phone] S/P foot surgery, right (Primary Dx); 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[facility]) Discharge Disposition: Discharged to home or self [...] Pulse 92 01/20/2024 1:19 PM CDT Temperature - - Respiratory Rate - - Oxygen Saturation - - Inhaled Oxygen Concentration - - Weight - - Height - - Body Mass Index - - documented in this encounter Patient Instructions * Patient Instructions* Samina Singletary DPM - 01/20/2024 1:30 PM CDT - Follow up as needed - Okay to wear regular shoes - No restrictions from our standpoint - Begin to wear your diabetic shoes and inserts once they arrive documented in this encounter Progress Notes * Samina Singletary DPM - 01/20/2024 1:30 PM CDT Images from the original note were not included. Podiatric Surgery - Clinic Note Stephanie Low : 1980 Sex: male Preferred Name: Matt Medical Decision Makin.5 weeks s/p partial 1st metatarsal amputation, with delayed primary closure, left foot (DOS 12/10/23, Dr Sims) --Cut margin sent to pathology, benign bone that is negative for osteomyelitis s/p partial first ray amputation with irrigation and debridement down to and including the level ofbone (DOS: 12/08/23; Dr. Campos) --Indications: New Acute Osteomyelitis of first metatarsal head with cellulitis, worsening Incisiondehiscence and exposed bone due to noncompliance, left s/p Left hallux amputation (DOS 11/17/2023 Dr. Campos) --Indication: gangrenous hallux, possible stable gas forming infection, right --Gas identified on outside CT 11/09 Daily Tobacco Use --AUS completed 11/16 with no additional workup indicated Controlled T2DM with peripheral neuropathy --A1C: 6.8% 07/2023 Right TMA Paranoid Schizophrenia History of TBI --Patient is own [facility] Clinic plan: -Discussed postoperative course and expectations -Advised patient that the incision has healed -Okay to begin wearing regular tennis shoes -[facility] for diabetic shoes and inserts. They will be delivered to patient once they are ready. He is to begin wearing diabetic shoes and inserts once they arrive -There are no restrictions from our standpoint for the patient -ME paperwork completed and returned to patient Return to clinic as needed Chief Complaint and History of Present Illness: Stephanie Low is a 43 y.o. male is presenting to the podiatric surgery clinic for s/p above procedure. Patient reports has been doing well since last plan. Has not been addressed needs as he is completely healed. He has been weightbearing as tolerated in surgical shoe. Denies any new wounds or ul cerations. He is hoping he can move his senior care. He has no other question or concerns Physical Exam: There were no vitals filed for this visit. Estimated body mass index is 43.02 kg/m?? as calculated from the following: Height as of 12/08/23: 1.803 m (5' 11). Weight as of 12/08/23: 139.9 kg (308 lb 6.8 oz). General: No apparent distress Psych: Alert and oriented x3 Respiratory: Breathing is non-labored, regular rate and rhythm Lymph: No LE lymphadenopathy Vascular: Palpable pulses noted, left foot Capillary filling time less than three seconds derick-incisional area and lesser digits, left foot Neurological: Protective sensation with deficit to light touch, left foot Dermatologic: Incision has healed, left There are no open wounds or ulcerations to the left foot Musculoskeletal: Palpatory tenderness absent upon exam Status post partial first ray amputation, right foot Right foot TMA Samina Singletary DPM, 01/20/2024 1:18 PM FACULTY NOTE TP note (PETRONA): I saw and evaluated the patient. I discussed with the resident and agree with the resident???s findings and plan documented in the resident???s note. Any revisions by me are documented. Afshan Sims DPM, 01/21/2024 12:04 PM documented in this encounter Plan of Treatment Not on file documented as of this encounter Visit Diagnoses Diagnosis S/P foot surgery, right- Primary 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[facility]) documented in this encounter Additional Health Concerns Infection Onset Date Last Indicated Resolved Time 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
--- OUTSIDE RECORDS SUMMARY | 2024-02-07 08:45 | XMS_ITS | Encounter Summary ---
Author Organization [facility] Address [address] [facility] [address] Phone Care Team Providers Care Jet Ski Mechanic Name Role Phone Unavailable Primary Care Provider Unavailabl e Encounter Details Date Type Department Care Team (Latest Contact Info) Description 01/19/2024 10:30 AM CDT - 01/19/2024 11:59 PM CDT Hospital Encounter [facility] [place]baric [address] [place] [address] Nikolai Martinez MD [address] [facility] [address] [place], [place] [address] Vnfuigx, Dbk - [id number] Discharge Disposition: Discharged to home or self [...] Sign Reading Time Taken Comments Blood Pressure 140/74 01/19/2024 9:00 AM CDT Pulse 86 01/19/2024 9:00 AM CDT Temperature 36.3 ??C (97.3 ??F) 01/19/2024 9:00 AM CD T Respiratory Rate 16 01/19/2024 9:00 AM CDT Oxygen Saturation 94% 01/19/2024 9:00 AM CDT Inhaled Oxygen Concentration - [...] Progress Notes * Kit Mcconnell MD - 01/19/2024 10:30 AM CDT Hyperbaric Oxygen Treatment Note Stephanie Low Date: 01/19/2024 Treatment Indication(s): Non healing diabetic ulceration (Pepe > 3) s/p failed L hallux amputation with dehiscence/flapfailure; recurrence of infection necessitating repeat surgical intervention and broad spectrum antibiotics Osteomyelitis Treatment Number: 19 Interval history: The patient reports no local pain, erythema, or drainage at his surgical site. Heis planning on Podiatry follow up tomorrow with pending completion of HBO based on wound assessment. HPI, problem list, nursing notes, flowsheet and vital signs reviewed. Treatment was uneventful, able to complete treatment without difficulty. BP 140/74 Pulse 86 Temp 36.3 ??C (97.3 ??F) (Temporal) Resp 16 SpO2 94% Plan: Minimum of 20 treatments with possibility of extension of the treatment series pending response to treatment 01/19 pods follow up Please do not hesitate to call the Hyperbaric Department at [phone] during clinic hours or page seasonal driver staff with any updates, questions, or concerns. Associated attestation - Nikolai Martinez MD - 01/19/2024 5:14 PM CDT Continuous attending physician supervision was provided throughout the hyperbaric oxygen treatment. I have reviewed and agree with the treatment note created by Fellow: Kit Mcconnell MD. documented in this encounter Plan of Treatment Not on file documented as of this encounter Procedures Procedure Name Priority Date/Time Associated Diagnosis Comments POC GLUCOSE Routine 01/19/2024 12:22 PM CDT POC GLUCOSE Routine 01/19/2024 9:58 AM CDT documented in this encounter Results * (ABNORMAL) POC GLUCOSE (01/19/2024 12:22 PM CDT) Pathologist [facility] POC Glucose 323(H) 70 - 100 mg/dL [facility]INT [facility] Blood 01/19/2024 12:2 2 PM CDT Nikolai Martinez MD LABORATORY Performing Organization Address City/State/[facility] Co de Phone Number [facility] [address] [place] [address], * (ABNORMAL) POC GLUCOSE (01/19/2024 9:58 AM CDT) POC Glucose 353(H) 70 - 100 mg/dL [facility] Blood 01/19/2024 9:58 AM CDT Provider Unknown LABORATORY [facility] [address] [place] [address], documented in this encounter Visit Diagnoses Diagnosis Soft tissue infection- Primary Unspecified infectious and parasitic diseases Other acute osteomyelitis of left foot (CMS/HHS) documented in this encounter Additional Health Concerns Infection Onset Date Last Indicated Resolved Time 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
--- OUTSIDE RECORDS SUMMARY | 2024-02-07 08:45 | XMS_ITS | Encounter Summary ---
Author Organization [facility] Address [address] [place] [address] Phone Care Team Providers Care Glue Mixer Name Role Phone Unavailable Primary Care Provider Unavailabl e Encounter Details Date Type Department Care Team (Latest Contact Info) Description 01/20/2024 Travel Social History Tobacco Use Types Packs/Day [...]
--- OUTSIDE RECORDS SUMMARY | 2024-02-07 08:46 | XMS_ITS | Encounter Summary ---
Author Organization [facility] [place] Address [address] [place] [address] Phone Care Team Providers Care Web Site Specialist Name Role Phone Unavailable Primary Care Provider Unavailabl e Encounter Details Date Type Department Care Team (Late st Contact Info) Description 01/12/2024 9:53 AM CDT - 01/12/2024 11:59 PM CDT Hospital En[place] [facility] [place] [address] [facility] [address] [place], [place] [phone] SophiaDavid ward MD 701 [facility] [address] [place], [place] [phone] Routine, Hbo - [id number] Discharge Disposition: Discharged to home or self [...] Sign Reading Time Taken Comments Blood Pressure 140/80 01/12/2024 9:00 AM CDT Pulse 90 01/12/2024 9:00 AM CDT Temperature 36.4 ??C (97.5 ??F) 01/12/2024 9:00 AM CD T Respiratory Rate 17 01/12/2024 9:00 AM CDT Oxygen Saturation 97% 01/12/2024 9:00 AM CDT Inhaled Oxygen Concentration - [...] as of this encounter Progress Notes * David Cortes MD - 01/12/2024 10:30 AM CDT Hyperbaric Oxygen Treatment Note Stephanie Low Date: 01/12/2024 Treatment Indication(s): Non healing diabetic ulceration (Pepe > 3) s/p failed L hallux amputation with dehiscence/flapfailure; recurrence of infection necessitating repeat surgical intervention and broad spectrum antibiotics Osteomyelitis Treatment Number: 16 HPI, problem list, nursing notes, flowsheet and vital signs reviewed. Treatment was uneventful, able to complete treatment without difficulty. BP 140/80 Pulse 90 Temp 36.4 ??C (97.5 ??F) (Temporal) Resp 17 SpO2 97% Plan: Minimum of 20 treatments with possibility of extension of the treatment series pending response to treatment 01/19 pods follow up Please do not hesitate to call the Hyperbaric Department at [phone] during clinic hours or page ammonia refrigeration technician staff with any updates, questions, or concerns. Mayuri Hinojosa APRN, CNP, 01/12/2024 12:54 PM Continuous attending physician supervision was provided throughout the hyperbaric oxygen treatment.I have reviewed and agree with treatment note created by the Hyperbaric Medicine Nurse Practitioner, Mayuri Hinojosa APRN, CNP. David Cortes MD, 01/12/2024 2:45 PM documented in this encounter Plan of Treatment Not on file documented as of this encounter Procedures Procedure Name Priority Date/Time Associated Diagnosis Comments POC GLUCOSE Routine 01/12/2024 10:02 AM CDT documented in this encounter Results * (ABNORMAL) POC GLUCOSE (01/12/2024 10:02 AM CDT) POC Glucose 414(H) 70 - 100 mg/dL [facility] POINT OF CARE Blood 01/12/2024 10:0 2 AM CDT aDvid Cortes MD LABORATORY [facility] - POINT OF CARE [address] [place] [address], documented in this encounter Visit Diagnoses Diagnosis Soft tissue infection- Primary Unspecified infectious and parasitic diseases Other acute osteomyelitis of left foot (CMS/HHS) documented in this encounter Additional Health Concerns Infection Onset Date Last Indicated Resolved Time 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
--- OUTSIDE RECORDS SUMMARY | 2024-02-07 08:46 | XMS_ITS | Encounter Summary ---
Author Organization [facility] Address [address] [place] [address] Phone Care Team Providers Care Radiosonde Specialist Name Role Phone Unavailable Primary Care Provider Unavailabl e Encounter Details Date Type Department Care Team (Latest Contact Info) Description 01/07/2024 Travel Social History Tobacco Use Types Packs/Day [...]
--- OUTSIDE RECORDS SUMMARY | 2024-02-07 08:46 | XMS_ITS | Encounter Summary ---
Author Organization [facility] [place] Address [address] [place] [address] Phone Care Team Providers Care Parking Lot Chauffeur Name Role Phone Unavailable Primary Care Provider Unavailabl e Encounter Details Date Type Department Care Team (Latest Contact Info) Description 01/17/2024 9:42 AM CDT - 01/17/2024 11:59 PM CDT Hospital Encounter [facility] Hyperbaric [address] [facility] [address] [place] [address] Masters, Douglas Osuna II, MD [address] [facility] [address] [place], [place] [phone] Routine, How - [id number] Discharge Disposition: Discharged to home or self [...] Sign Reading Time Taken Comments Blood Pressure 134/90 01/17/2024 9:00 AM CDT Pulse 85 01/17/2024 9:00 AM CDT Temperature 36.2 ??C (97.2 ??F) 01/17/2024 9:00 AM CD T Respiratory Rate 16 01/17/2024 9:00 AM CDT Oxygen Saturation 96% 01/17/2024 9:00 AM CDT Inhaled Oxygen Concentration - [...] Progress Notes * Kit Mcconnell MD - 01/17/2024 10:30 AM CDT Hyperbaric Oxygen Treatment Note Stephanie Low Date: 01/17/2024 Treatment Indication(s): 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 No new concerns, drainage, or fevers. He does note persistent decrease in his binocular visual acuity. He reports no ocular pain, drainage, eye trauma or sensation of FB. This has been progressive for months. He has not yet reached out to Optometry for an evaluation. I did provide him with multiple numbers for his convenience locally in [place] for evaluation. HPI, problem list, nursing notes, flowsheet and vital signs reviewed. Treatment was uneventful, able to complete treatment without difficulty. BP 134/90 Pulse 85 Temp 36.2 ??C (97.2 ??F) Resp 16 SpO2 96% Eyes: Pupils 4 mm bilaterally, responsive to light. No chemosis or scleral injection. No nystagmus or gaze preference. Plan: Minimum of 20 treatments with possibility of extension of the treatment series pending response to treatment 01/19 pods follow up Please do not hesitate to call the Hyperbaric Department at [phone] during clinic hours or page industrial relations analyst staff with any updates, questions, or concerns. Associated attestation - Douglas Morris II, MD - 01/17/2024 2:59 PM CDT Continuous attending physician supervision was provided throughout the hyperbaric oxygen treatment.I have reviewed and agree with the treatment note created by the Hyperbaric Medicine Fellow: MD Shamir. Appropriate addendums were made as needed above. Douglas Morris II, MD, 01/17/2024 2:59 PM documented in this encounter Plan of Treatment Not on file documented as of this encounter Procedures Procedure Name Priority Date/Time Associated Diagnosis Comments POC GLUCOSE Routine 01/17/2024 12:19 PM CDT POC GLUCOSE Routine 01/17/2024 9:59 AM CDT documented in this encounter Results * (ABNORMAL) POC GLUCOSE (01/17/2024 12:19 PM CDT) POC Glucose 288(H) 70 - 100 mg/dL [facility]INT [facility] C[facility] Blood 01/17/2024 12:1 9 PM CDT Douglas Morris II, MD LABORATORY [facility]INT [facility]ARE [address] [place] [address], * (ABNORMAL) POC GLUCOSE (01/17/2024 9:59 AM CDT) POC Glucose 323(H) 70 - 100 mg/dL [facility] POINT OF CARE Blood 01/17/2024 9:59 AM CDT Narrative Authorizing Provider Result Kiki Morris II, MD LABORATORY Performing Organization Address City/State/[facility] Co de Phone Number [facility]INT [facility]ARE [address] [place] [address], documented in this encounter Visit Diagnoses Diagnosis Soft tissue infection- Primary Unspecified infectious and parasitic diseases Other acute osteomyelitis of left foot ([facility]) documented in this encounter Administered Medications Inactive Administered Medications - up to 3 most recent administrations Medication Order MAR Action Action Date Dose Rate Site ibuprofen (MOTRIN;ADVIL) tablet 600 mg 600 mg, Oral, ONE TIME PRN, Starting on Wed01/17/24 at 1145, Until Wed01/18/24 at 0312, For HBO Therapy Plan use Given 01/17/2024 11:47 AM CDT 600 mg documented in this encounter Additional Health Concerns Infection Onset Date Last Indicated Resolved Time 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
--- OUTSIDE RECORDS SUMMARY | 2024-02-07 08:46 | XMS_ITS | Encounter Summary ---
Author Organization [facility] Address [address] [place] [address] Phone Care Team Providers Care Literacy Tutor Name Role Phone Unavailable Primary Care Provider Unavailabl e Encounter Details Date Type Department Care Team (Latest Contact Info) Description 01/04/2024 Travel Social History Tobacco Use Types Packs/Day [...]
--- OUTSIDE RECORDS SUMMARY | 2024-02-07 08:46 | XMS_ITS | Encounter Summary ---
Author Organization [facility] Address [address] [place] [address] Phone Care Team Providers Care Architectural Wood Model Maker Name Role Phone Unavailable Primary Care Provider Unavailabl e Encounter Details Date Type Department Care Team (Late st Contact Info) Description 01/05/2024 9:32 AM CDT - 01/05/2024 11:59 PM CDT Hospital En[place] [facility] [address] [facility] [address] [place], [place] [address] SophiaDavid ward MD [address] [facility] [address] [place], [place] [phone] Routine, Hbo - [id number] Discharge Disposition: Discharged to home or self [...] Sign Reading Time Taken Comments Blood Pressure 119/72 01/05/2024 9:00 AM CDT Pulse 84 01/05/2024 9:00 AM CDT Temperature 36.3 ??C (97.3 ??F) 01/05/2024 9:00 AM CD T Respiratory Rate 16 01/05/2024 9:00 AM CDT Oxygen Saturation 97% 01/05/2024 9:00 AM CDT Inhaled Oxygen Concentration - [...] before meals. 12/13/2023 chlorhexidine (PERIDEX) 0.12% mouth/throat solutionIndications:G ingivitis Swish and spit 15 mL by mouth daily. Indications: Gum Inflammation 11/24/2023 docusate sodium (COLACE) 100 mg oral capsule Take 1 capsule (100 mg) by mouth twice daily as needed for Constipation. 11/24/2023 hydrOXYzine pamoate (VISTARIL) 25 mg oral capsuleIndications:Pr uritus Take 1-2 capsules (25-50 mg) by mouth every 6 hours as needed for Itching. Indications: Itching 11/24/2023 loratadine (CLARITIN) 10 mg oral tabletIndications:Sea ajay Allergic Rhinitis Take 1 tablet (10 mg) by mouth daily. Indications: Hayfever 11/24/2023 milk of magnesia 400 mg/5 mL oral suspensionIndications :Acid Indigestion Take 15 mL by mouth daily as needed for Constipation. Indications: Acid Indigestion 11/24/2023 paliperidone palmitate ER (INVEGA SUSTENNA) 156 mg/mL IM injectionIndications: Schizoaffective Disorder Inject 1 mL (156 mg) into a muscle every month. Indications: Schizoaffective Disorder 11/24/2023 acetaminophen (TYLENOL) 325 mg oral tabletIndications:Fev er,Pain Take 3 tablets (975 mg) by mouth 3 times daily. Indications: Fever, Pain 11/24/2023 escitalopram (LEXAPRO) 20 mg oral tabletIndications:Gen eralized Anxiety Disorder Take 1 tablet (20 mg) by mouth at bedtime. Indications: Generalized Anxiety Disorder 11/24/2023 rosuvastatin (CRESTOR) 10 mg oral tabletIndications:Mix ed Dyslipidemia Take 1 tablet (10 mg) by mouth at bedtime. Indications: Elevation of Both Cholesterol and Triglycerides in Blood 11/24/2023 traZODone (DESYREL) 50 mg oral tabletIndications:Ins omnia Take 1 tablet (50 mg) by mouth at bedtime. Indications: Trouble Sleeping 11/24/2023 amLODIPine (NORVASC) 10 mg oral tabletIndications:Hyp ertension Take 1 tablet (10 mg) by mouth daily. Indications: High Blood Pressure Disorder 11/24/2023 bisacodyl (DULCOLAX) 10 mg rectal suppositoryIndication s:Constipation 1 suppository (10 mg) by Rectal route daily as needed for Constipation. Indications: Constipation 11/24/2023 cyclobenzaprine (FLEXERIL) 10 mg oralIndications:Muscl e Spasm Take 1 tablet (10 mg) by mouth 3 times daily. Indications: Muscle Spasm 11/24/2023 nicotine (NICOTROL) 14 mg/ 24hr transdermal patch 24 HRIndications:Nicotin e Dependence Apply 1 patch to skin daily. Indications: Nicotine Addiction 11/25/2023 nicotine polacrilex (NICORELIEF) 2 mg mouth/throat gumIndications:Nicoti ne Dependence 1 each (2 mg) by Gum route every 1 hour as needed for Nicotine Craving. Indications: Nicotine Addiction 11/24/2023 ondansetron (ZOFRAN) 4 mg oral TABSIndications:Nause a and Vomiting Take 1 tablet (4 mg) by mouth every 6 hours as needed for Nausea/Vomiting. Indications: Nausea and Vomiting 11/24/2023 polyethylene glycol 3350 (MIRALAX;GLYCOLAX) 17 g oral packetIndications:Con stipation Take 17 g by mouth daily. Indications: ConstipationTake 1 capful to 17 gm zo mixed with full glass of water every day as directed. 11/25/2023 sennosides (SENOKOT) 17.2 mg oral TABSIndications:Fourn iers gangrene (HHS) Take 1 tablet (17.2 mg) by mouth twice daily. 11/24/2023 prazosin (MINIPRESS) 1 mg oral capsuleIndications:Hy pertension Take 1 capsule (1 mg) by mouth at bedtime. Indications: High Blood Pressure Disorder 11/24/2023 linezolid (ZYVOX) 600 mg oral tabletIndications:Ellie betic Foot Infection Take 1 tablet (600 mg) by mouth twice daily for 25 days. 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 Treatment was uneventful, able to complete treatment without difficulty. BP 119/72 Pulse 84 Temp 36.3 ??C (97.3 ??F) Resp 16 SpO2 97% Plan: Minimum of 20 treatments with possibility of extension of the treatment series pending response to treatment Please do not hesitate to call the Hyperbaric Department at [phone] during clinic hours or page bonding machine setter staff with any updates, questions, or concerns. Associated attestation - David Cortes MD - 01/05/2024 1:54 PM CDT Continuous attending physician supervision was provided throughout the hyperbaric oxygen treatment.I have reviewed and agree with treatment note created by the Hyperbaric Medicine Fellow, Dr. Patel. David Cortes MD, 01/05/2024 1:53 PM documented in this encounter Plan of Treatment Not on file documented as of this encounter Procedures Procedure Name Priority Date/Time Associated Diagnosis Comments POC GLUCOSE Routine 01/05/2024 9:54 AM CDT documented in this encounter Results * (ABNORMAL) POC GLUCOSE (01/05/2024 9:54 AM CDT) POC Glucose 328(H) 70 - 100 mg/dL [facility]INT [facility] CARE Blood 01/05/2024 9:54 AM CDT David Cortes MD LABORATORY [facility]INT [facility] CARE [address] [place] [address], documented in this encounter Visit Diagnoses Diagnosis Soft tissue infection- Primary Unspecified infectious and parasitic diseases Other acute osteomyelitis of left foot ([facility]/HHS) documented in this encounter Additional Health Concerns Infection Onset Date Last Indicated Resolved Time 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
--- OUTSIDE RECORDS SUMMARY | 2024-02-07 08:46 | XMS_ITS | Encounter Summary ---
Author Organization [facility] Address [address] [place] [address] Phone Care Team Providers Care Manager Internet Name Role Phone Unavailable Primary Care Provider Unavailabl e Encounter Details Date Type Department Care Team (Late st Contact Info) Description 01/06/2024 9:40 AM CDT - 01/06/2024 11:59 PM CDT Hospital Encounter [facility] [place] Hyperbaric [address] [place], [place] [phone] David Cortes MD 701 [facility] [address] [place], [place] [address] Discharge Disposition: Discharged to home or self [...] on file documented as of this encounter Medications at Time of Discharge [...] as of this encounter Progress Notes * Carroll Espinoza RN - 01/06/2024 10:00 AM CDT Microangiography Study - Left foot Stephanie Low : 1980 Date of Service: 01/06/2024 Time of Service: 09:57 IV Site: Gauge: 20 G Location: R Hand Extremity Skin Temperature: 93.6 F Procedure: Fluorescence angiography Pt arrives to HBO suite, pt placed on recliner, dressings removed. Procedure explained. Study completed on left foot as ordered. Pt had no adverse reaction to 2.5 mL of IC-Green dye. After completionof study IV, removed and wound covered with sock. Plan for patient to dispo to home after OMEGA. documented in this encounter Plan of Treatment Not on file documented as of this encounter Procedures Procedure Name Priority Date/Time Associated Diagnosis Comments HBO ANGIOGRAPHY EXTREMITY UNILATERAL Routine 01/06/2024 9:40 AM CDT documented in this encounter Results * HBO ANGIOGRAPHY EXTREMITY UNILATERAL (01/06/2024 9:40 AM CDT) Anatomical Region Laterality Modality External-Camera Photography Narrative [...] 6:00 PM David Cortes MD RAD ULT documented in this encounter Visit Diagnoses Not on filedocumented in this encounter Additional Health Concerns Infection Onset Date Last Indicated Resolved Time 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
--- OUTSIDE RECORDS SUMMARY | 2024-02-07 08:46 | XMS_ITS | Encounter Summary ---
Author Organization [facility] Address [address] [place] [address] Phone Care Team Providers Care After School Driver Name Role Phone Unavailable Primary Care Provider Unavailabl e Encounter Details Date Type Department Care Team (Latest Contact Info) Description 01/12/2024 Travel Social History Tobacco Use Types Packs/Day [...]
--- OUTSIDE RECORDS SUMMARY | 2024-02-07 08:46 | XMS_ITS | Encounter Summary ---
Author Organization [facility] Address [address] [address] Phone Care Team Providers Care Landscaping Manager Name Role Phone Unavailable Primary Care Provider Unavailabl e Encounter Details Date Type Department Care Team (Latest Contact Info) Description 01/06/2024 Travel Social History Tobacco Use Types Packs/Day [...]
--- OUTSIDE RECORDS SUMMARY | 2024-02-07 08:46 | XMS_ITS | Encounter Summary ---
Author Organization [facility] Address [address] [place] [address] Phone Care Team Providers Care Staff Respiratory Therapist Name Role Phone Unavailable Primary Care Provider Unavailabl e Encounter Details Date Type Department Care Team (Late st Contact Info) Description 01/18/2024 10:06 AM CDT - 01/18/2024 11:59 PM CDT [place] [facility] [place] [address] [facility] [address] [place], [place] [phone] SophiaDavid ward MD 701 [facility] [address] [place], [place] [phone] Routine, Hbo - [phone] Discharge Disposition: Discharged to home or self [...] Sign Reading Time Taken Comments Blood Pressure 120/75 01/18/2024 9:00 AM CDT Pulse 100 01/18/2024 9:00 AM CDT Temperature 36 ??C (96.8 ??F) 01/18/2024 9:00 AM CDT Respiratory Rate 15 01/18/2024 9:00 AM CDT Oxygen Saturation 97% 01/18/2024 9:00 AM CDT Inhaled Oxygen Concentration - [...] Progress Notes * Kit Mcconnell MD - 01/18/2024 10:30 AM CDT Hyperbaric Oxygen Treatment Note Stephanie Low Date: 01/18/2024 Treatment Indication(s): 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 Treatment was uneventful, able to complete treatment without difficulty. BP 120/75 Pulse 100 Temp 36 ??C (96.8 ??F) (Temporal) Resp 15 SpO2 97% Plan: Minimum of 20 treatments with possibility of extension of the treatment series pending response to treatment 01/19 pods follow up Please do not hesitate to call the Hyperbaric Department at [phone] during clinic hours or page air traffic control specialist staff with any updates, questions, or concerns. Associated attestation - David Cortes MD - 01/18/2024 1:30 PM CDT Continuous attending physician supervision was provided throughout the hyperbaric oxygen treatment.I have reviewed and agree with treatment note created by the Hyperbaric Medicine Fellow, Dr. Mcconnell. David Cortes MD, 01/18/2024 1:30 PM documented in this encounter Plan of Treatment Not on file documented as of this encounter Visit Diagnoses Diagnosis Soft tissue infection- Primary Unspecified infectious and parasitic diseases Other acute osteomyelitis of left foot (CMS/HHS) documented in this encounter Administered Medications Inactive Administered Medications - up to 3 most recent administrations Medication Order MAR Action Action Date Dose Rate Site ibuprofen (MOTRIN;ADVIL) tablet 600 mg 600 mg, Oral, ONE TIME PRN, Starting on Wed01/18/24 at 1028, Until Wed01/19/24 at 0313, For HBO Therapy Plan use Given 01/18/2024 10:30 AM CDT 600 mg documented in this encounter Additional Health Concerns Infection Onset Date Last Indicated Resolved Time 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
--- OUTSIDE RECORDS SUMMARY | 2024-02-07 08:46 | XMS_ITS | Encounter Summary ---
Author Organization [facility] Address [address] [facility] [place] [address] Phone Care Team Providers Care Brush Sander Name Role Phone Unavailable Primary Care Provider Unavailabl e Encounter Details Date Type Department Care Team (Latest Contact Info) Description 01/11/2024 10:01 AM CDT - 01/11/2024 11:59 PM CDT Hospital [place] [facility] [place] [address] [place] [address] Nikolai Martinez MD [address] [facility] [address] [place], [place] [phone] Xxkcobh, Jxo - 11573 Discharge Disposition: Discharged to home or self [...] Sign Reading Time Taken Comments Blood Pressure 150/87 01/11/2024 9:00 AM CDT Pulse 93 01/11/2024 9:00 AM CDT Temperature 35.6 ??C (96.1 ??F) 01/11/2024 9:00 AM CD T Respiratory Rate 18 01/11/2024 9:00 AM CDT Oxygen Saturation 97% 01/11/2024 9:00 AM CDT Inhaled Oxygen Concentration - [...] as of this encounter Progress Notes * Nikolai Martinez MD - 01/11/2024 10:30 AM CDT Hyperbaric Oxygen Treatment Note Stephanie Low Date: 01/11/2024 Treatment Indication(s): 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 Treatment was uneventful, able to complete treatment without difficulty. BP 150/87 (Cuff Location: Right Arm) Pulse 93 Temp 35.6 ??C (96.1 ??F) (Temporal) Resp 18 SpO2 97% Plan: Minimum of 20 treatments with possibility of extension of the treatment series pending response to treatment 01/19 pods follow up Please do not hesitate to call the Hyperbaric Department at [phone] during clinic hours or page naval gunfire liaison officer staff with any updates, questions, or concerns. Mayuri Hinojosa APRN, COMMUNITY SUPPORT WORKER, 01/11/2024 12:21 PM Continuous attending physician supervision was provided throughout the hyperbaric oxygen treatment. I have reviewed and agree with the treatment note created by Nurse Practitioner: Mayuri Hinojosa APRN, PREP MANAGER. documented in this encounter Plan of Treatment Not on file documented as of this encounter Procedures Procedure Name Priority Date/Time Associated Diagnosis Comments POC GLUCOSE Routine 01/11/2024 10:00 AM CDT documented in this encounter Results * (ABNORMAL) POC GLUCOSE (01/11/2024 10:00 AM CDT) POC Glucose 362(H) 70 - 100 mg/dL [facility] - POINT OF CARE Blood 01/11/2024 10:0 0 AM CDT Nikolai Martinez MD LABORATORY [facility] - POINT OF CARE [address] [place] [address], documented in this encounter Visit Diagnoses Diagnosis Soft tissue infection- Primary Unspecified infectious and parasitic diseases Other acute osteomyelitis of left foot (CMS/HHS) documented in this encounter Additional Health Concerns Infection Onset Date Last Indicated Resolved Time 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
--- OUTSIDE RECORDS SUMMARY | 2024-02-07 08:46 | XMS_ITS | Encounter Summary ---
Author Organization [facility] Address [address] [place] [address] Phone Care Team Providers Care Exhaust And Muffler Repairer Name Role Phone Unavailable Primary Care Provider Unavailabl e Encounter Details Date Type Department Care Team (Latest Contact Info) Description 01/05/2024 Travel Social History Tobacco Use Types Packs/Day [...]
--- OUTSIDE RECORDS SUMMARY | 2024-02-07 08:46 | XMS_ITS | Encounter Summary ---
Author Organization [facility] Address [address] [place] [address] Phone Care Team Providers Care Skills Auditor Name Role Phone Unavailable Primary Care Provider Unavailabl e Encounter Details Date Type Department Care Team (Late st Contact Info) Description 01/05/2024 Orders Only [facility] [place] [address] [place], [place] [phone] Talita Patel MD [address] [place], [place] [phone] Social History Tobacco Use Types Packs/Day Years [...]
--- OUTSIDE RECORDS SUMMARY | 2024-02-07 08:46 | XMS_ITS | Encounter Summary ---
Author Organization [facility] Address [address] [place] [address] Phone Care Team Providers Care Aadc Plans Staff Officer Name Role Phone Unavailable Primary Care Provider Unavailabl e Encounter Details Date Type Department Care Team (Latest Contact Info) Description 01/11/2024 Travel Social History Tobacco Use Types Packs/Day [...]
--- OUTSIDE RECORDS SUMMARY | 2024-02-07 08:46 | XMS_ITS | Encounter Summary ---
Author Organization [facility] Address [address] [facility] [place] [address] Phone Care Team Providers Care Court Abstractor Name Role Phone Unavailable Primary Care Provider Unavailabl e Encounter Details Date Type Department Care Team (Latest Contact Info) Description 01/07/2024 10:06 AM CDT - 01/07/2024 11:59 PM CDT Hospital Encounter [facility] [place] Hyperbaric [address] [place] [address] Maggy Horan MD [address] [place], [place] [address] [facility], [place] - [phone] Discharge Disposition: Discharged to home or self [...] Sign Reading Time Taken Comments Blood Pressure 155/89 01/07/2024 10:00 AM CDT Pulse 101 01/07/2024 10:00 AM CDT Temperature 35.2 ??C (95.4 ??F) 01/07/2024 10:00 AM C DT Respiratory Rate 16 01/07/2024 10:00 AM CDT Oxygen Saturation 97% 01/07/2024 10:00 AM CDT Inhaled Oxygen Concentration - - [...] Progress Notes * Talita Patel MD - 01/07/2024 10:30 AM CDT Hyperbaric Oxygen Treatment Note Stephanie Low Date: 01/07/2024 Treatment Indication(s): 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 Treatment was uneventful, able to complete treatment without difficulty. BP (!) 155/89 (Cuff Location: Right Arm) Pulse 101 Temp 35.2 ??C (95.4 ??F) (Temporal) Resp 16 SpO2 97% Plan: Minimum of 20 treatments with possibility of extension of the treatment series pending response to treatment Please do not hesitate to call the Hyperbaric Department at [phone] during clinic hours or page fractionating still operator staff with any updates, questions, or concerns. Associated attestation - Maggy Horan MD - 01/07/2024 12:06 PM CDT Continuous attending physician supervision was provided throughout the hyperbaric oxygen treatment. I have reviewed and agree with the treatment note created by Fellow: Talita Patel MD. documented in this encounter Plan of Treatment Not on file documented as of this encounter Procedures Procedure Name Priority Date/Time Associated Diagnosis Comments POC GLUCOSE Routine 01/07/2024 12:27 PM CDT POC GLUCOSE Routine 01/07/2024 10:20 AM CDT documented in this encounter Results * (ABNORMAL) POC GLUCOSE (01/07/2024 12:27 PM CDT) POC Glucose 344(H) 70 - 100 mg/dL [facility] - POINT OF CARE Blood 01/07/2024 12:2 7 PM CDT Maggy Horan MD LABORATORY Performing Organization Address [facility] Co de Phone Number [facility] POINT OF CARE [address] [place], [place] [phone], * (ABNORMAL) POC GLUCOSE (01/07/2024 10:20 AM CDT) POC Glucose 357(H) 70 - 100 mg/dL [facility] - POINT OF CARE Blood 01/07/2024 10:2 0 AM CDT Maggy Horan MD LABORATORY Performing Organization Address City/[facility] Co de Phone Number [facility] POINT OF CARE [address] [place] [phone], documented in this encounter Visit Diagnoses Diagnosis Soft tissue infection- Primary Unspecified infectious and parasitic diseases Other acute osteomyelitis of left foot ([facility]) documented in this encounter Additional Health Concerns Infection Onset Date Last Indicated Resolved Time 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
--- OUTSIDE RECORDS SUMMARY | 2024-02-07 08:46 | XMS_ITS | Encounter Summary ---
Author Organization [facility] Address [address] [place] [address] Phone Care Team Providers Care Drop Wire Operator Name Role Phone Unavailable Primary Care Provider Unavailabl e Encounter Details Date Type Department Care Team (Late st Contact Info) Description 01/06/2024 9:50 AM CDT - 01/06/2024 11:59 PM CDT Hospital Encounter [facility] [place] Hyperbaric [address] [facility] [address] [place], [place] [phone] SophiaDavid ward MD 701 [facility] [address] [place], [place] [address] Routine, Hbo - [id number] Discharge Disposition: Discharged to home or self [...] Sign Reading Time Taken Comments Blood Pressure 156/82 01/06/2024 9:00 AM CDT Pulse 87 01/06/2024 9:00 AM CDT Temperature 36 ??C (96.8 ??F) 01/06/2024 9:00 AM CDT Respiratory Rate 16 01/06/2024 9:00 AM CDT Oxygen Saturation 98% 01/06/2024 9:00 AM CDT Inhaled Oxygen Concentration - [...] Progress Notes * David Cortes MD - 01/06/2024 10:30 AM CDT Images from the original note were not included. 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 Treatment was uneventful, able to complete treatment without difficulty. BP (!) 156/82 (Cuff Location: Right Arm) Pulse 87 Temp 36 ??C (96.8 ??F) (Temporal) Resp 16 SpO2 98% OMEGA done today: HBO ANGIOGRAPHY EXTREMITY UNILATERAL (01/06/2024 09:40) Plan: Minimum of 20 treatments with possibility of extension of the treatment series pending response to treatment Please do not hesitate to call the Hyperbaric Department at [phone] during clinic hours or page digital content manager staff with any updates, questions, or concerns. Talita Patel MD Hyperbaric Medicine Continuous attending physician supervision was provided throughout the hyperbaric oxygen treatment.I have reviewed and agree with treatment note created by the Hyperbaric Medicine Fellow, Dr. Patel. David Cortes MD, 01/06/2024 3:32 PM documented in this encounter Plan of Treatment Not on file documented as of this encounter Procedures Procedure Name Priority Date/Time Associated Diagnosis Comments POC GLUCOSE Routine 01/06/2024 9:52 AM CDT documented in this encounter Results * (ABNORMAL) POC GLUCOSE (01/06/2024 9:52 AM CDT) POC Glucose 308(H) 70 - 100 mg/dL [facility] - POINT OF CARE Blood 01/06/2024 9:52 AM CDT David Cortes MD LABORATORY [facility] - POINT OF CARE [address] [place] [address], documented in this encounter Visit Diagnoses Diagnosis Soft tissue infection- Primary Unspecified infectious and parasitic diseases Other acute osteomyelitis of left foot (CMS/HHS) documented in this encounter Additional Health Concerns Infection Onset Date Last Indicated Resolved Time 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
--- OUTSIDE RECORDS SUMMARY | 2024-02-07 08:46 | XMS_ITS | Encounter Summary ---
Author Organization [facility] Address [address] [place] [address] Phone Care Team Providers Care De Icer Name Role Phone Unavailable Primary Care Provider Unavailabl e Encounter Details Date Type Department Care Team (Latest Contact Info) Description 01/04/2024 10:16 AM CDT - 01/04/2024 11:59 PM CDT Hospital En[place] [facility] [place] 701 [facility] [address] [place] [address] Masters, Douglas Osuna II, MD [address] [facility] 8[address] [place], [place] [phone] Routine, Yif - [phone] Discharge Disposition: Discharged to home or self [...] Sign Reading Time Taken Comments Blood Pressure 124/78 01/04/2024 9:00 AM CDT Pulse 92 01/04/2024 9:00 AM CDT Temperature 35.8 ??C (96.4 ??F) 01/04/2024 9:00 AM CD T Respiratory Rate 14 01/04/2024 9:00 AM CDT Oxygen Saturation 98% 01/04/2024 9:00 AM CDT Inhaled Oxygen Concentration - [...] Progress Notes * Talita Patel MD - 01/04/2024 10:30 AM CDT Hyperbaric Oxygen Treatment Note Stephanie Low Date: 01/04/2024 Treatment Indication(s): 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 Treatment was uneventful, able to complete treatment without difficulty. BP 124/78 Pulse 92 Temp 35.8 ??C (96.4 ??F) (Temporal) Resp 14 SpO2 98% Plan: Minimum of 20 treatments with possibility of extension of the treatment series pending response to treatment Please do not hesitate to call the Hyperbaric Department at [phone] during clinic hours or page substation operator transforming staff with any updates, questions, or concerns. Associated attestation - Douglas Morris II, MD - 01/04/2024 1:15 PM CDT Continuous attending physician supervision was provided throughout the hyperbaric oxygen treatment.I have reviewed and agree with the treatment note created by the Hyperbaric Medicine Fellow: Talita Patel MD. Appropriate addendums were made as needed above. Douglas Morris II, MD, 01/04/2024 1:15 PM documented in this encounter Plan of Treatment Not on file documented as of this encounter Procedures Procedure Name Priority Date/Time Associated Diagnosis Comments POC GLUCOSE Routine 01/04/2024 10:03 AM CDT documented in this encounter Results * (ABNORMAL) POC GLUCOSE (01/04/2024 10:03 AM CDT) POC Glucose 340(H) 70 - 100 mg/dL [facility] - POINT OF CARE Blood 01/04/2024 10:0 3 AM CDT Doulgas Morris II, MD LABORATORY [facility] - POINT OF CARE [address] [place] [address], documented in this encounter Visit Diagnoses Diagnosis Soft tissue infection- Primary Unspecified infectious and parasitic diseases Other acute osteomyelitis of left foot ([facility]/HHS) documented in this encounter Additional Health Concerns Infection Onset Date Last Indicated Resolved Time 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
--- OUTSIDE RECORDS SUMMARY | 2024-02-07 08:46 | XMS_ITS | Encounter Summary ---
Author Organization [facility] Address [address] [place] [address] Phone Care Team Providers Care Professor Of Chemical Engineering Name Role Phone Unavailable Primary Care Provider Unavailabl e Encounter Details Date Type Department Care Team (Latest Contact Info) Description 01/17/2024 Travel Social History Tobacco Use Types Packs/Day [...]
--- OUTSIDE RECORDS SUMMARY | 2024-02-07 08:46 | XMS_ITS | Encounter Summary ---
Author Organization [facility] Address [address] [place] [address] Phone Care Team Providers Care Websphere Commerce Consultant Name Role Phone Unavailable Primary Care Provider Unavailabl e Encounter Details Date Type Department Care Team (Latest Contact Info) Description 01/03/2024 Travel Social History Tobacco Use Types Packs/Day [...]
--- OUTSIDE RECORDS SUMMARY | 2024-02-07 08:47 | XMS_ITS | Encounter Summary ---
Author Organization [facility] Address [address] [place] [address] Phone Care Team Providers Care Resort Host Name Role Phone Unavailable Primary Care Provider Unavailabl e Reason for Visit * Reason Comments Consult Encounter Details Date Type Department Care Team (Late st Contact Info) Description 12/24/2023 10:00 AM CDT [facility] [address] [phone] 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, ELECTRICAL TECHNICIAN INSTRUCTOR, PAPER REELER [address] [place] [address] 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); Soft tissue [...] Sign Reading Time Taken Comments Blood Pressure 133/69 12/24/2023 9:38 AM CDT Pulse 84 12/24/2023 9:38 AM CDT Temperature - - Respiratory Rate - - Oxygen Saturation - - Inhaled Oxygen Concentration - - Weight - - Height - - Body Mass Index - - documented in this encounter Patient Instructions * Patient Instructions* 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 APRN, CNP - 12/24/2023 10:00 AM CDT Your groin is healing well-there is 100% granulation tissue (good healing tissue) Continue doing the same dressing changes i.e. wet-to-dry dressing using Vashe. Change dressing daily and as needed. Use Interdry in abdominal folds and groin to keep area dry. Okay to discharge to Home NURSING HOME if there is somebody who can do dressing changes daily. Appointment has been made for follow-up on 01/28/2024 documented in this encounter Progress Notes * 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 APRN, PATRICIA - 12/24/2023 10:00 AM CDT Images from the original note were not included. [facility] PROVIDER SURGERY CLINIC VISIT NOTE - MEDICAL IMAGING DIRECTOR Stephanie Low : 1980 Sex: male Plan : Continue wet-to-dry dressing changes with Vashe to the groin incision. With the each dressing change; make sure the groin area is clean and dry. Utilize Interdry to keep abdominal fluids and groin dry Okay for patient to discharge Home [facility] if help is available to change the dressings daily. Follow-up in clinic 01/28/2024 Return in about 5 weeks (around 01/28/2024).: Reason for Visit /HPI Stephanie Low is a 43 y.o. male who presents to clinic for postop follow-up. 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 He tolerated the procedure well and was discharged on 11/25/2023. Today he reports doing well. Pain was wellcontroled with current pain regiment. Patient has resumed regular diet ; voiding with no problem ; has regular bowel movements without any concerns for diarrhea or constipation. Incision site is still open with 100% granulation tissue. No signs of infection. Doing wet-to-dry dressing changes with Vashe. Change dressing on this visit. Has resumed regular activity. Denies fatigue, chest pain, SOB, f ever, nausea/vomiting, erythema or drainage from wound. Has no concerns at this time Subjective: A complete 10-point ROS was done and all systems negative except for what is documented in the HPI. Objective: BP 133/69 (Cuff Location: Left Arm, Patient Position: Sitting, Cuff Size: Adult - regular) Pulse 84 Glascow Coma Scale: Motor 6=Obeys commands Verbal 5=Oriented Eye opening 4=Spontaneous TOTAL 15 Constitutional: General appearance: well developed, well nourished, no distress Cardiovascular: Rate as noted, regular rhythm, no murmur or rubs. Respiratory: Breathing comfortably on room air, breath sounds clear/equal bilaterally Gastrointestinal/Abdomen: Abdomen soft, non-tender, non-distended. BS x 4 - active. Genitourinary: No concerns with urination. Groin incision with a wet-to-dry dressing on. Musculoskeletal: Both upper/lower extremities have normal joint range of motion and intact strength. Left hallux amputation at about the same time of the surgery-dressing is clean dry and intact Skin: normal skin color, texture, and turgor. No rashes or lesions. Surgical site as described above. See completed as below. Neurological: alert and oriented x 4 Recent labs reviewed: No 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 APRN, CNP 12/24/2023 13:40 [facility] Department of Surgery Pager: via telemClickMagic I have spent 30 minutes with this patient today in which greater than 50% of this time was spent incounseling/coordination of care regarding in patient care, review of imaging/labs, chart review andconsultant recommendations. Dictation Disclaimer: Some notes are completed with voice-recognition dictation software. Errors are generally corrected in real time. Please contact me via [employer] staff message if you note any errors requiring clarification. 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
--- OUTSIDE RECORDS SUMMARY | 2024-02-07 08:47 | XMS_ITS | Encounter Summary ---
Author Organization [facility] Address [address] [place] [address] Phone Care Team Providers Care Course Instructor Name Role Phone Unavailable Primary Care Provider Unavailabl e Reason for Visit * Prior Authorization (Routine) - Auth Not Needed Specialty Diagnoses / Procedures Referred By Katherine tidwell Referred To Contact HYPERBARIC MEDICINE Diagnoses Patricia gangrene Other acute osteomyelitis, left ankle and foot Local infection of the skin and subcutaneous tissue, unspecified [facility] Ref: Bethany BROOKS Procedures HYPERBARIC OXYGEN UNDER PRESSURE FULL BODY CHAMBER PER 30 MINUTE INTERVAL [place] PHYS/QHP ATTN&SUPVJ HYPRBARIC OXYGEN TX/SESSION Routine, Hbo - 27114 Referral ID Status Reason Start Date Expiration Date V isits Requested Visits Authorized [id number] Auth Not Needed 12/20/2023 03/09/2024 30 30 Encounter Details Date Type Department Care Team (Latest Contact Info) Description 12/22/2023 9:43 AM CDT - 12/22/2023 11:59 PM CDT Hospital Encounter [facility] [place] Hyperbaric 701 [facility] [address] [place], [place] [address] Narcisa Sanford MD [address] [place], [place] [phone] Routine, Hbo - [id number] Discharge Disposition: Discharged to home or self [...] Sign Reading Time Taken Comments Blood Pressure 113/78 12/22/2023 9:00 AM CDT Pulse 89 12/22/2023 9:00 AM CDT Temperature 35.6 ??C (96.1 ??F) 12/22/2023 9:00 AM CD T Respiratory Rate 16 12/22/2023 9:00 AM CDT Oxygen Saturation 97% 12/22/2023 9:00 AM CDT Inhaled Oxygen Concentration - [...] as of this encounter Progress Notes * Narcisa Sanford MD - 12/22/2023 10:30 AM CDT Hyperbaric Oxygen Treatment Note Stephanie Low Date: 12/22/2023 Treatment Indication(s): 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 Treatment was uneventful, able to complete treatment without difficulty. BP 113/78 Pulse 89 Temp 35.6 ??C (96.1 ??F) (Temporal) Resp 16 SpO2 97% Plan: Minimum of 20 treatments with possibility of extension of the treatment series pending response to treatment 12/30 podiatry follow up Please do not hesitate to call the Hyperbaric Department at [phone] during clinic hours or page showroom salesperson staff with any updates, questions, or concerns. Continuous attending physician supervision was provided throughout the hyperbaric oxygen treatment.I have reviewed and agree with treatment note created by the Hyperbaric Medicine Nurse Practitioner, Mayuri Hinojosa APRN, BULLDOZER MECHANIC. Narcisa Sanford MD, 12/22/2023 3:23 PM documented in this encounter Plan of Treatment Not on file documented as of this encounter Procedures Procedure Name Priority Date/Time Associated Diagnosis Comments POC GLUCOSE Routine 12/22/2023 9:48 AM CDT documented in this encounter Results * (ABNORMAL) POC GLUCOSE (12/22/2023 9:48 AM CDT) POC Glucose 318(H) 70 - 100 mg/dL [facility] - POINT OF CARE Blood 12/22/2023 9:48 AM CDT Nikolai Martinez MD LABORATORY [facility] - POINT OF CARE [address] [place] [address], documented in this encounter Visit Diagnoses Diagnosis Soft tissue infection- Primary Unspecified infectious and parasitic diseases Other acute osteomyelitis of left foot ([facility]) documented in this encounter Additional Health Concerns Infection Onset Date Last Indicated Resolved Time 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
--- OUTSIDE RECORDS SUMMARY | 2024-02-07 08:47 | XMS_ITS | Encounter Summary ---
Author Organization Formerly Named [facility] Address [address] [place] [address] Phone Care Team Providers Care Residency Director Name Role Phone Unavailable Primary Care Provider Unavailabl e Encounter Details Date Type Department Care Team (Late st Contact Info) Description 12/30/2023 9:49 AM CDT - 12/30/2023 11:59 PM CDT Hospital En[place] [facility] [place] [address] [facility] [address] [place], [place] [phone] SophiaDavid ward MD 701 [facility] [address] [place], [place] [address] Routine, Hbo - [id number] Discharge Disposition: Discharged to home or self [...] Sign Reading Time Taken Comments Blood Pressure 118/75 12/30/2023 9:00 AM CDT Pulse 85 12/30/2023 9:00 AM CDT Temperature 36.6 ??C (97.9 ??F) 12/30/2023 9:00 AM CD T Respiratory Rate 16 12/30/2023 9:00 AM CDT Oxygen Saturation 98% 12/30/2023 9:00 AM CDT Inhaled Oxygen Concentration - [...] Progress Notes * Kit Mcconnell MD - 12/30/2023 10:30 AM CDT Hyperbaric Oxygen Treatment Note Stephanie Low Date: 12/30/2023 Treatment Indication(s): 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 He reports no fever, chills, no wound drainage. HPI, problem list, nursing notes, flowsheet and vital signs reviewed. Treatment was uneventful, able to complete treatment without difficulty. BP 118/75 (Cuff Location: Left Arm) Pulse 85 Temp 36.6 ??C (97.9 ??F) (Temporal) Resp 16 SpO2 98% Plan: Minimum of 20 treatments with possibility of extension of the treatment series pending response to treatment 12/30 podiatry follow up Please do not hesitate to call the Hyperbaric Department at [phone] during clinic hours or page aeronautical design engineer staff with any updates, questions, or concerns. Associated attestation - David Cortes MD - 12/30/2023 2:47 PM CDT Continuous attending physician supervision was provided throughout the hyperbaric oxygen treatment.I have reviewed and agree with treatment note created by the Hyperbaric Medicine Fellow, Dr. Mcconnell. David Cortes MD, 12/30/2023 2:47 PM documented in this encounter Plan of Treatment Not on file documented as of this encounter Procedures Procedure Name Priority Date/Time Associated Diagnosis Comments POC GLUCOSE Routine 12/30/2023 9:54 AM CDT documented in this encounter Results * (ABNORMAL) POC GLUCOSE (12/30/2023 9:54 AM CDT) POC Glucose 352(H) 70 - 100 mg/dL [facility] - POINT OF CARE Blood 12/30/2023 9:54 AM CDT David Cortes MD LABORATORY [facility] - POINT OF CARE [address] [place] [address], documented in this encounter Visit Diagnoses Diagnosis Soft tissue infection- Primary Unspecified infectious and parasitic diseases Other acute osteomyelitis of left foot ([facility]) documented in this encounter Administered Medications Inactive Administered Medications - up to 3 most recent administrations Medication Order MAR Action Action Date Dose Rate Site ibuprofen (MOTRIN;ADVIL) tablet 600 mg 600 mg, Oral, ONE TIME PRN, Starting on Heather 12/30/23 at 1228, Until Wed12/31/23 at 0314, For HBO Therapy Plan use Given 12/30/2023 11:45 AM CDT 600 mg documented in this encounter Additional Health Concerns Infection Onset Date Last Indicated Resolved Time 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
--- OUTSIDE RECORDS SUMMARY | 2024-02-07 08:47 | XMS_ITS | Encounter Summary ---
Author Organization [facility][Note 3] Address [address] [place] [address] Phone Care Team Providers Care Internet Marketing Executive Name Role Phone Unavailable Primary Care Provider [...] FULL BODY CHAMBER PER 30 MINUTE INTERVAL [place] PHYS/QHP ATTN&SUPVJ HYPRBARIC OXYGEN TX/SESSION Routine, Hbo - [id number] Referral ID Status Reason Start Date Expiration Date V isits Requested Visits Authorized [id number] Auth Not Needed 12/20/2023 03/09/2024 30 30 Encounter Details Date Type Department Care Team (Latest Contact Info) Description 12/23/2023 9:33 AM CDT - 12/23/2023 11:59 PM CDT Hospital Encounter [facility] [place] Hyperbaric [address] [phone] Nikolai Martinez MD [address] [place], [place] [address] Routine, Hbo - [id number] Discharge Disposition: Discharged to home or self [...] Sign Reading Time Taken Comments Blood Pressure 136/78 12/23/2023 10:00 AM CDT Pulse 89 12/23/2023 10:00 AM CDT Temperature 35.8 ??C (96.4 ??F) 12/23/2023 10:00 AM C DT Respiratory Rate 16 12/23/2023 10:00 AM CDT Oxygen Saturation 99% 12/23/2023 10:00 AM CDT Inhaled Oxygen Concentration - [...] Progress Notes * Nikolai Martinez MD - 12/23/2023 10:30 AM CDT Hyperbaric Oxygen Treatment Note Stephanie Low Date: 12/23/2023 Treatment Indication(s): Non healing diabetic ulceration (Pepe > 3) s/p failed L hallux amputation with dehiscence/flapfailure; recurrence of infection necessitating repeat surgical intervention and broad spectrum antibiotics Osteomyelitis Treatment Number: 6 HPI, problem list, nursing notes, flowsheet and vital signs reviewed. Treatment was uneventful, able to complete treatment without difficulty. BP 136/78 (Cuff Location: Right Arm) Pulse 89 Temp 35.8 ??C (96.4 ??F) (Temporal) Resp 16 SpO2 99% Plan: Minimum of 20 treatments with possibility of extension of the treatment series pending response to treatment 12/30 podiatry follow up Please do not hesitate to call the Hyperbaric Department at [phone] during clinic hours or page on site manager staff with any updates, questions, or concerns. Continuous attending physician supervision was provided throughout the hyperbaric oxygen treatment. I have reviewed and agree with the treatment note created by Nurse Practitioner: Mayuri Hinojosa APRN, NP. documented in this encounter Plan of Treatment Not on file documented as of this encounter Procedures Procedure Name Priority Date/Time Associated Diagnosis Comments POC GLUCOSE Routine 12/23/2023 10:27 AM CDT documented in this encounter Results * (ABNORMAL) POC GLUCOSE (12/23/2023 10:27 AM CDT) POC Glucose 315(H) 70 - 100 mg/dL [facility] - POINT OF CARE Blood 12/23/2023 10:2 7 AM CDT Nikolai Martinez MD LABORATORY [facility] - POINT OF CARE [address] [place] [address], documented in this encounter Visit Diagnoses Diagnosis Soft tissue infection- Primary Unspecified infectious and parasitic diseases Other acute osteomyelitis of left foot ([facility]) documented in this encounter Additional Health Concerns Infection Onset Date Last Indicated Resolved Time 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
--- OUTSIDE RECORDS SUMMARY | 2024-02-07 08:47 | XMS_ITS | Encounter Summary ---
Author Organization [facility] Address [address] [place] [address] Phone Care Team Providers Care [place] Dental Lab Technician Name Role Phone Unavailable Primary Care Provider Unavailabl e Encounter Details Date Type Department Care Team (Latest Contact Info) Description 12/20/2023 Travel Social History Tobacco Use Types Packs/Day [...]
--- OUTSIDE RECORDS SUMMARY | 2024-02-07 08:47 | XMS_ITS | Encounter Summary ---
Author Organization [facility] Address [address] [place] [address] Phone Care Team Providers Care Children'S Book Author Name Role Phone Unavailable Primary Care Provider Unavailabl e Encounter Details Date Type Department Care Team (Latest Contact Info) Description 12/24/2023 Travel Social History Tobacco Use Types Packs/Day [...]
--- OUTSIDE RECORDS SUMMARY | 2024-02-07 08:47 | XMS_ITS | Encounter Summary ---
Author Organization [facility] Address [address] [place] [address] Phone Care Team Providers Care Draw String Knotter Name Role Phone Unavailable Primary Care Provider Unavailabl e Encounter Details Date Type Department Care Team (Latest Contact Info) Description 01/03/2024 9:33 AM CDT - 01/03/2024 11:59 PM CDT [place] [facility] [place] [address] [facility] [address] [place] [address] Narcisa Sanford MD [address] [place], [place] [address] [facility] [place] - [id number] Discharge Disposition: Discharged to home or self [...] Sign Reading Time Taken Comments Blood Pressure 116/69 01/03/2024 9:00 AM CDT Pulse 97 01/03/2024 9:00 AM CDT Temperature 36.5 ??C (97.7 ??F) 01/03/2024 9:00 AM CD T Respiratory Rate 16 01/03/2024 9:00 AM CDT Oxygen Saturation 100% 01/03/2024 9:00 AM CDT Inhaled Oxygen Concentration - [...] Progress Notes * Talita Patel MD - 01/03/2024 10:30 AM CDT Hyperbaric Oxygen Treatment Note Stephanie Low Date: 01/03/2024 Treatment Indication(s): Non healing diabetic ulceration (Pepe > 3) s/p failed L hallux amputation with dehiscence/flapfailure; recurrence of infection necessitating repeat surgical intervention and broad spectrum antibiotics Osteomyelitis Treatment Number: 10 HPI, problem list, nursing notes, flowsheet and vital signs reviewed. Treatment was uneventful, able to complete treatment without difficulty. BP 116/69 (Cuff Location: Left Arm) Pulse 97 Temp 36.5 ??C (97.7 ??F) (Temporal) Resp 16 SpO2 100% Plan: Minimum of 20 treatments with possibility of extension of the treatment series pending response to treatment Please do not hesitate to call the Hyperbaric Department at [phone] during clinic hours or page operations section manager staff with any updates, questions, or concerns. Associated attestation - Narcisa Sanford MD - 01/03/2024 5:06 PM CDT Continuous attending physician supervision was provided throughout the hyperbaric oxygen treatment.I have reviewed and agree with the treatment note created by the Hyperbaric Medicine Fellow: Talita Patel MD. Appropriate addendums were made as needed above. Narcisa Sanford MD, 01/03/2024 5:06 PM documented in this encounter Plan of Treatment Not on file documented as of this encounter Procedures Procedure Name Priority Date/Time Associated Diagnosis Comments POC GLUCOSE Routine 01/03/2024 9:50 AM CDT documented in this encounter Results * (ABNORMAL) POC GLUCOSE (01/03/2024 9:50 AM CDT) POC Glucose 305(H) 70 - 100 mg/dL [facility] - POINT OF CARE Blood 01/03/2024 9:50 AM CDT Narcisa Sanford MD LABORATORY [facility] - POINT OF CARE [address] [place] [address], documented in this encounter Visit Diagnoses Diagnosis Soft tissue infection- Primary Unspecified infectious and parasitic diseases Other acute osteomyelitis of left foot ([facility]) documented in this encounter Administered Medications Inactive Administered Medications - up to 3 most recent administrations Medication Order MAR Action Action Date Dose Rate Site ibuprofen (MOTRIN;ADVIL) tablet 600 mg 600 mg, Oral, ONE TIME PRN, Starting on 01/03/24 at 1137, Until Tu01/04/24 at 0313, For HBO Therapy Plan use Given 01/03/2024 11:43 AM CDT 600 mg documented in this encounter Additional Health Concerns Infection Onset Date Last Indicated Resolved Time 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
--- OUTSIDE RECORDS SUMMARY | 2024-02-07 08:47 | XMS_ITS | Encounter Summary ---
Author Organization [facility] Address [address] [place] [address] Phone Care Team Providers Care Selector Packer Name Role Phone Unavailable Primary Care Provider Unavailabl e Encounter Details Date Type Department Care Team (Latest Contact Info) Description 12/23/2023 Travel Social History Tobacco Use Types Packs/Day [...]
--- OUTSIDE RECORDS SUMMARY | 2024-02-07 08:47 | XMS_ITS | Encounter Summary ---
Author Organization [facility] Address [address] [place] [address] Phone Care Team Providers Care Assistant Public Defender Name Role Phone Unavailable Primary Care Provider Unavailabl e Encounter Details Date Type Department Care Team (Latest Contact Info) Description 12/22/2023 Travel Social History Tobacco Use Types Packs/Day [...]
--- OUTSIDE RECORDS SUMMARY | 2024-02-07 08:47 | XMS_ITS | Encounter Summary ---
Author Organization [facility] Address [address] [place] [address] Phone Care Team Providers Care Frog Or Oyster Farmworker Name Role Phone Unavailable Primary Care Provider Unavailabl e Reason for Visit * Reason Comments Post Op Encounter Details Date Type Department Care Team (Late st Contact Info) Description 12/31/2023 1:00 PM CDT Office [facility] [address] [address] Afshan Sims, DPMorelia [address] [phone] S/P foot surgery, right (Primary Dx) Discharge [...] Sign Reading Time Taken Comments Blood Pressure 116/79 12/31/2023 1:05 PM CDT Pulse 88 12/31/2023 1:05 PM CDT Temperature - - Respiratory Rate - - Oxygen Saturation - - Inhaled Oxygen Concentration - - Weight - - Height - - Body Mass Index - - documented in this encounter Patient Instructions * Patient Instructions* Samina Singletary DPM - 12/31/2023 1:00 PM CDT - Please schedule a follow up 3 weeks at the front office associate - Please schedule an appointment with orthotics at the front office associate for diabetic shoes and inserts - A dressings was applied today. It can be removed Wednesday (01/03/24) and no dressings is needed after Wednesday - It is okay to walk but only to complete your daily tasks. We do not want high level of activity on your foot. - Continue to wear your post-operative shoe at all times while walking or weight bearing. documented in this encounter Progress Notes * Samina Singletary, DPM - 12/31/2023 1:00 PM CDT Images from the original note were not included. Podiatric Surgery - Clinic Note Stephanie Low : 1980 Sex: male Preferred Name: Matt Medical Decision Makin weeks s/p partial 1st metatarsal amputation, with delayed primary closure, left foot (DOS 12/10/23,Dr Sims) --Cut margin sent to pathology, benign [...] Schizophrenia History of TBI --Patient is own [facility] Clinic plan: -Discussed postoperative course and expectations -Sutures were removed today uneventfully -Okay for weightbearing as tolerated in surgical shoe only to complete daily activities. Surgical shoe dispensed today -New dressing applied today consisting of Betadine, 4 x 4 gauze, Luis F, Refugio. Okay for patient to remove the dressing in 3 days and discontinue dressing changes -Advised patient he is okay to begin routine hygiene habits but instructed patient to not soak the foot -Instructed patient to schedule appointment with orthotics to be fitted for diabetic shoes and inserts. He is to continue weightbearing in the postoperative shoe in the left until diabetic shoes and inserts arrive -KS paperwork completed and returned to patient Return to clinic 3 weeks Chief Complaint and History of Present Illness: Stephanie Low is a 43 y.o. male is presenting to the podiatric surgery clinic for s/p above procedure. Patient is here today loss in the last appointment. Has been nonweightbearing utilizing a wheelchair. Has kept the dressing clean dry and intact since his last appointment. Denies any falls or injuries. Denies any local or systemic signs of infection. He has no other questions or concerns Physical Exam: Vitals: 12/31/23 1305 BP: 116/79 Pulse: 88 Estimated body mass index is 43.02 kg/m?? [...] Capillary filling time less than three seconds dercik-incisional area and lesser digits, left foot Neurological: Protective sensation with deficit to light touch, left foot Dermatologic: Skin well coapted with sutures in place. No evidence of the dehiscence No drainage present Erythema and edema present consistent with post op course. No evidence of CRPS. Good perfusion to flap with no evidence of ischemic changes Musculoskeletal: Palpatory tenderness absent upon exam Status post partial first ray amputation, right foot Right foot TMA Samina Singletary DPM, 12/31/2023 1:23 PM FACULTY NOTE TP note (PETRONA): I saw and evaluated the patient. I discussed with the resident and agree with the resident???s findings and plan documented in the resident???s note. Any revisions by me are documented. Afshan Sims DPM, 01/05/2024 10:15 AM documented in this encounter Plan of Treatment Not on file documented as of this encounter Visit Diagnoses Diagnosis S/P foot surgery, right- Primary documented in this encounter Additional Health Concerns Infection Onset Date Last Indicated Resolved Time 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
--- OUTSIDE RECORDS SUMMARY | 2024-02-07 08:47 | XMS_ITS | Encounter Summary ---
Author Organization [facility] Address [address] [facility] [place] [address] Phone Care Team Providers Care Diesel Inspector Name Role Phone Unavailable Primary Care Provider Unavailabl e Encounter Details Date Type Department Care Team (Latest Contact Info) Description 12/29/2023 9:38 AM CDT - 12/29/2023 11:59 PM CDT Hospital En[place] [facility] [place] [address] [place] [address] Nikolai Martinez MD [address] [facility] [place], [place] [address] Nodzgla, Ocg - [phone] Discharge Disposition: Discharged to home or self [...] Sign Reading Time Taken Comments Blood Pressure 119/76 12/29/2023 10:00 AM CDT Pulse 101 12/29/2023 10:00 AM CDT Temperature 35.7 ??C (96.3 ??F) 12/29/2023 10:00 AM C DT Respiratory Rate 15 12/29/2023 10:00 AM CDT Oxygen Saturation 97% 12/29/2023 10:00 AM CDT Inhaled Oxygen Concentration - [...] Progress Notes * Kit Mcconnell MD - 12/29/2023 10:30 AM CDT Hyperbaric Oxygen Treatment Note Stephanie Low Date: 12/29/2023 Treatment Indication(s): Non healing diabetic ulceration (Pepe > 3) s/p failed L hallux amputation with dehiscence/flapfailure; recurrence of infection necessitating repeat surgical intervention and broad spectrum antibiotics Osteomyelitis Treatment Number: 7 Interval history: Patient reports no ongoing foot pain at this time. He denies recent swelling or drainage. No fever or chills. HPI, problem list, nursing notes, flowsheet and vital signs reviewed. Treatment was uneventful, able to complete treatment without difficulty. BP 119/76 Pulse 101 Temp 35.7 ??C (96.3 ??F) (Temporal) Resp 15 SpO2 97% Plan: Minimum of 20 treatments with possibility of extension of the treatment series pending response to treatment 12/30 podiatry follow up Please do not hesitate to call the Hyperbaric Department at [phone] during clinic hours or page production control clerk staff with any updates, questions, or concerns. Associated attestation - Nikolai Martinez MD - 12/29/2023 4:39 PM CDT Continuous attending physician supervision was provided throughout the hyperbaric oxygen treatment. I have reviewed and agree with the treatment note created by Fellow: Kit Mcconnell MD. documented in this encounter Plan of Treatment Not on file documented as of this encounter Procedures Procedure Name Priority Date/Time Associated Diagnosis Comments POC GLUCOSE Routine 12/29/2023 10:07 AM CDT documented in this encounter Results * (ABNORMAL) POC GLUCOSE (12/29/2023 10:07 AM CDT) POC Glucose 323(H) 70 - 100 mg/dL [facility] - POINT OF CARE Blood 12/29/2023 10:0 7 AM CDT Nikolai Martinez MD LABORATORY [facility] - POINT OF CARE [address] [place] [address], documented in this encounter Visit Diagnoses Diagnosis Soft tissue infection- Primary Unspecified infectious and parasitic diseases Other acute osteomyelitis of left foot ([facility]) documented in this encounter Administered Medications Inactive Administered Medications - up to 3 most recent administrations Medication Order MAR Action Action Date Dose Rate Site acetaminophen (TYLENOL) tablet 650 mg 650 mg, Oral, Q4H PRN, 2 doses, Starting on 12/29/23 at 1131, Until Heather 12/30/23 at 0314, Headache, Temp > 38.6 C, For HBO Therapy Plan use. Given 12/29/2023 11:31 AM CDT 650 mg documented in this encounter Additional Health Concerns Infection Onset Date Last Indicated Resolved Time 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
--- OUTSIDE RECORDS SUMMARY | 2024-02-07 08:47 | XMS_ITS | Encounter Summary ---
Author Organization [facility] Address [address] [place] [address] Phone Care Team Providers Care Briar Wood Sorter Name Role Phone Unavailable Primary Care Provider Unavailabl e Reason for Visit * Reason Comments Wound Encounter Details Date Type Department Care Team (Late st Contact Info) Description 12/27/2023 9:00 AM CDT [facility] Only [facility] [address] [address] Afshan Sims, DPMorelia [address] [phone] Discharge Disposition: Discharged to home or self [...] on file documented as of this encounter Progress Notes * Xi Shaikh RN - 12/27/2023 9:54 AM CDT 12/27/23 0951 Wound 12/10/23 Incision Foot Left Date First Assessed/Time First Assessed: 12/10/23 1118 Primary Wound Type: Incision Location: Foot Wound Location Orientation: Left Site Assessment Other (comment);Dry (sutures intact) Rain-Wound Assessment Intact Tunneling or undermining present? No Drainage Amount None Cleansed W/ Betadine Lotion/Topical to non-wound areas No Topical Dressing Gauze;Steri-strips (Cling, stockinette, cast padding, posterior splint, double 4 MERCEDES) Dressing Changed Changed Dressing Status Clean;Dry;Intact 12/27/23 0955 Wound 12/08/23 Groin Date First Assessed/Time First Assessed: 12/08/23 1415 Present on Original Admission: Yes Location:Groin Site Assessment Granular;Manderson Rain-Wound Assessment Intact Tunneling or undermining present? No Drainage Description Serosanguineous Drainage Amount Small Cleansed W/ Vashe Dressing ABD (Vashe moistened Kerlix) Dressing Changed Changed Dressing Status Clean;Intact Tolerated well. Starting HBO. Scheduled too late to start them today. Had transportation called by the time they scheduled the appointments. Xi Shaikh, RN, 12/27/2023 10:00 AM documented in this encounter Plan of Treatment Not on file documented as of this encounter Visit Diagnoses Not on filedocumented in this encounter Additional Health Concerns Infection Onset Date Last Indicated Resolved Time 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
--- OUTSIDE RECORDS SUMMARY | 2024-02-07 08:47 | XMS_ITS | Encounter Summary ---
Author Organization [facility] Address [address] [place] [address] Phone Care Team Providers Care Traveling Engineer Name Role Phone Unavailable Primary Care Provider Unavailabl e Encounter Details Date Type Department Care Team (Latest Contact Info) Description 12/29/2023 Travel Social History Tobacco Use Types Packs/Day [...]
--- OUTSIDE RECORDS SUMMARY | 2024-02-07 08:47 | XMS_ITS | Encounter Summary ---
Author Organization [facility] Address [address] [place] [address] Phone Care Team Providers Care Medical Records Director Name Role Phone Unavailable Primary Care Provider Unavailabl e Encounter Details Date Type Department Care Team (Latest Contact Info) Description 12/30/2023 Travel Social History Tobacco Use Types Packs/Day [...]
--- OUTSIDE RECORDS SUMMARY | 2024-02-07 08:47 | XMS_ITS | Encounter Summary ---
Author Organization [facility] Address [address] [place] [address] Phone Care Team Providers Care Referral Manager Name Role Phone Unavailable Primary Care Provider Unavailabl e Encounter Details Date Type Department Care Team (Latest Contact Info) Description 12/31/2023 Travel Social History Tobacco Use Types Packs/Day [...]
--- OUTSIDE RECORDS SUMMARY | 2024-02-07 08:47 | XMS_ITS | Encounter Summary ---
Author Organization [facility] Address [address] [place] [address] Phone Care Team Providers Care Fire Control System Installer Name Role Phone Unavailable Primary Care Provider Unavailabl e Reason for Visit * Reason Onset Date Comments Care Coordination 12/28/2023 Called to disc us outpatient HBOT schedule Encounter Details Date Type Department Care Team (Late st Contact Info) Description 12/28/2023 Telephone [facility] [place] [address] [address] Dayanna Rodriguez RN [address] [place] [address] Care Coordination (Called to discuss outpatient HBOT schedule) Social History Tobacco Use Types Packs/Day Years [...] on file documented as of this encounter Miscellaneous Notes * Telephone Encounter - Dayanna Rodriguez RN - 12/28/2023 1:48 PM CDT Called [facility] to discuss ongoing outpatient HBOT schedule. Per facility, no appointments or follow ups were noted on paperwork sent with Stephanie on 12/23. Appointment dates and schedule was printedand faxed to [facility] at [phone]. She reported that she may need x 2 days to get transport set up. documented in this encounter Plan of Treatment Not on file documented as of this encounter Visit Diagnoses Not on filedocumented in this encounter Additional Health Concerns Infection Onset Date Last Indicated Resolved Time 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
--- OUTSIDE RECORDS SUMMARY | 2024-02-07 08:47 | XMS_ITS | Encounter Summary ---
Author Organization [facility] Address [address] [place] [address] Phone Care Team Providers Care Topography Technician Name Role Phone Unavailable Primary Care Provider Unavailabl e Encounter Details Date Type Department Care Team (Latest Contact Info) Description 12/31/2023 9:51 AM CDT - 12/31/2023 11:59 PM CDT [place] [facility] [place] 701 [facility] [address] [place] [address] Masters, Douglas Osuna II, MD 701 [facility] [address] [place], [place] [id number] Routine, Lwq - [id number] Discharge Disposition: Discharged to home or self [...] Sign Reading Time Taken Comments Blood Pressure 117/79 12/31/2023 9:00 AM CDT Pulse 86 12/31/2023 9:00 AM CDT Temperature 36.6 ??C (97.9 ??F) 12/31/2023 9:00 AM CD T Respiratory Rate 15 12/31/2023 9:00 AM CDT Oxygen Saturation 95% 12/31/2023 9:00 AM CDT Inhaled Oxygen Concentration - [...] Progress Notes * Kit Mcconnell MD - 12/31/2023 10:30 AM CDT Hyperbaric Oxygen Treatment Note Stephanie Low Date: 12/31/2023 Treatment Indication(s): Non healing diabetic ulceration (Pepe > 3) s/p failed L hallux amputation with dehiscence/flapfailure; recurrence of infection necessitating repeat surgical intervention and broad spectrum antibiotics Osteomyelitis Treatment Number: 9 Interval history:Patient reports no acute issues. Minimal localized pain without new swelling, fever, chills, or wound drainage. HPI, problem list, nursing notes, flowsheet and vital signs reviewed. Treatment was uneventful, able to complete treatment without difficulty. BP 117/79 Pulse 86 Temp 36.6 ??C (97.9 ??F) (Temporal) Resp 15 SpO2 95% Plan: Minimum of 20 treatments with possibility of extension of the treatment series pending response to treatment Podiatry follow up today Please do not hesitate to call the Hyperbaric Department at [phone] during clinic hours or page family consumer science teacher staff with any updates, questions, or concerns. Associated attestation - Douglas Morris II, MD - 12/31/2023 1:13 PM CDT Continuous attending physician supervision was provided throughout the hyperbaric oxygen treatment.I have reviewed and agree with the treatment note created by the Hyperbaric Medicine Fellow: MD Shamir. Appropriate addendums were made as needed above. Douglas Morris II, MD, 12/31/2023 1:13 PM documented in this encounter Plan of Treatment Not on file documented as of this encounter Procedures Procedure Name Priority Date/Time Associated Diagnosis Comments POC GLUCOSE Routine 12/31/2023 9:57 AM CDT documented in this encounter Results * (ABNORMAL) POC GLUCOSE (12/31/2023 9:57 AM CDT) POC Glucose 295(H) 70 - 100 mg/dL [facility] - POINT OF CARE Blood 12/31/2023 9:57 AM CDT Douglas Morris II, MD LABORATORY [facility] - POINT OF CARE [address] [place] [address], documented in this encounter Visit Diagnoses Diagnosis Soft tissue infection- Primary Unspecified infectious and parasitic diseases Other acute osteomyelitis of left foot ([facility]) documented in this encounter Administered Medications Inactive Administered Medications - up to 3 most recent administrations Medication Order MAR Action Action Date Dose Rate Site ibuprofen (MOTRIN;ADVIL) tablet 600 mg 600 mg, Oral, ONE TIME PRN, Starting on Wed12/31/23 at 1036, Until 01/01/24 at 0318, For HBO Therapy Plan use Given 12/31/2023 10:37 AM CDT 600 mg documented in this encounter Additional Health Concerns Infection Onset Date Last Indicated Resolved Time 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
--- OUTSIDE RECORDS SUMMARY | 2024-02-07 08:47 | XMS_ITS | Encounter Summary ---
Author Organization [facility] Address [address] [place] [address] Phone Care Team Providers Care Armament Installer Name Role Phone Unavailable Primary Care Provider Unavailabl e Encounter Details Date Type Department Care Team (Latest Contact Info) Description 12/27/2023 Travel Social History Tobacco Use Types Packs/Day [...]
--- OUTSIDE RECORDS SUMMARY | 2024-02-07 08:47 | XMS_ITS | Encounter Summary ---
Author Organization [facility] [place] Address [address] [place] [address] Phone Care Team Providers Care Director Home Health Name Role Phone Unavailable Primary Care Provider [...] FULL BODY CHAMBER PER 30 MINUTE INTERVAL MA PHYS/QHP ATTN&SUPVJ HYPRBARIC OXYGEN TX/SESSION Routine, Hbo - [id number] Referral ID Status Reason Start Date Expiration Date V isits Requested Visits Authorized [id number] Auth Not Needed 12/20/2023 03/09/2024 30 30 Encounter Details Date Type Department Care Team (Latest Contact Info) Description 12/20/2023 9:34 AM CDT - 12/20/2023 11:59 PM CDT Hospital En[place] [facility] [place] 701 [facility] [address] [place], [place] [address] Shawn Vines MD 701 [facility] [address] [place], [place] [address] Routine, Hbo - [id number] Discharge Disposition: Discharged to home or self [...] Sign Reading Time Taken Comments Blood Pressure 104/67 12/20/2023 9:00 AM CDT Pulse 83 12/20/2023 9:00 AM CDT Temperature 36.3 ??C (97.3 ??F) 12/20/2023 9:00 AM CD T Respiratory Rate 16 12/20/2023 9:00 AM CDT Oxygen Saturation 98% 12/20/2023 9:00 AM CDT Inhaled Oxygen Concentration - [...] as of this encounter Progress Notes * Shawn Vines MD - 12/20/2023 10:30 AM CDT Hyperbaric Oxygen Treatment Note Stephanie Low Date: 12/20/2023 Treatment Indication(s): Non healing diabetic ulceration (Pepe > 3) s/p failed L hallux amputation with dehiscence/flapfailure; recurrence of infection necessitating repeat surgical intervention and broad spectrum antibiotics Osteomyelitis Treatment Number: 4 HPI, problem list, nursing notes, flowsheet and vital signs reviewed. Treatment was uneventful, able to complete treatment without difficulty. BP 104/67 Pulse 83 Temp 36.3 ??C (97.3 ??F) (Temporal) Resp 16 SpO2 98% Plan: Minimum of 20 treatments with possibility of extension of the treatment series pending response to treatment 12/30 podiatry follow up Please do not hesitate to call the Hyperbaric Department at [phone] during clinic hours or page financial services consultant staff with any updates, questions, or concerns. Continuous attending physician supervision was provided throughout the hyperbaric oxygen treatment.I have reviewed and agree with treatment note created by Lor Hinojosa APRN, [employer]. Shawn Vines MD, 12/20/2023 12:49 PM documented in this encounter Plan of Treatment Not on file documented as of this encounter Procedures Procedure Name Priority Date/Time Associated Diagnosis Comments POC GLUCOSE Routine 12/20/2023 12:28 PM CDT POC GLUCOSE Routine 12/20/2023 10:06 AM CDT documented in this encounter Results * (ABNORMAL) POC GLUCOSE (12/20/2023 12:28 PM CDT) POC Glucose 265(H) 70 - 100 mg/dL [facility] - POINT OF CARE Blood 12/20/2023 12:2 8 PM CDT Shawn Vines MD LABORATORY Performing Organization Address City/[facility]/ZIP Co de Phone Number [facility] [address] [place] [address], * (ABNORMAL) POC GLUCOSE (12/20/2023 10:06 AM CDT) POC Glucose 284(H) 70 - 100 mg/dL [facility] Blood 12/20/2023 10:0 6 AM CDT Shawn Vines MD LABORATORY Performing Organization Address [facility] de Phone Number [facility] [address] [place] [address], [place] documented in this encounter Visit Diagnoses Diagnosis Soft tissue infection- Primary Unspecified infectious and parasitic diseases Other acute osteomyelitis of left foot ([facility]) documented in this encounter Administered Medications Inactive Administered Medications - up to 3 most recent administrations Medication Order MAR Action Action Date Dose Rate Site ibuprofen (MOTRIN;ADVIL) tablet 600 mg 600 mg, Oral, ONE TIME PRN, Starting on Wed12/20/23 at 1000, Until Wed12/21/23 at 0312, For HBO Therapy Plan use Given 12/20/2023 10:02 AM CDT 600 mg documented in this encounter Additional Health Concerns Infection Onset Date Last Indicated Resolved Time 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
--- OUTSIDE RECORDS SUMMARY | 2024-02-07 08:48 | XMS_ITS | Encounter Summary ---
Author Organization [facility] Address [address] [place] [phone] Phone Care Team Providers Care Alternative Dispute Resolution Mediator Name Role Phone Unavailable Primary Care Provider Unavailabl e Reason for Visit * Auth/Cert (Routine) Specialty Diagnoses / Procedures Referred By Katherine tidwell Referred To Contact SURGERY Diagnoses Other acute osteomyelitis of left foot ([facility]) Eusebio Vivar MD [address] [place] [phone] Or P4 [address] [place] [id number] Referral ID Status Reason Start Date Expiration Date Visits Re quested Visits Authorized [id number] 1 1 Encounter Details Date Type Department Care Team (Late st Contact Info) Description 12/10/2023 10:39 AM CDT Anesthesia Event OR P4 [address] [place] [address] [phone] Clint White MD [address] [place] [address] [phone] Carly Jordan MD [address] [place] [address] [phone] Anesthesia Record Procedure Summary Procedure Name Responsible Anesthesiologist Anesthesia Start Time Anesthesia Stop Time REVISION, AMPUTATION SITE, POSSIBLE PARTIAL FOOT AMPUTATION, IRRIGATION AND DEBRIDMENT, POSSIBLE SERIAL PROCEDURES, L LOWER EXTREMITY (Left: Foot) Clint White MD 12/10/23 1039 12/10/23 1203 Events Date Time Event Comment 12/10/2023 1034 Pre-op End 1039 An Start 1039 An Start Data 1039 IOPAE The intraoperat dasha pre-anesthetic evaluation was completed with no changes noted from the pre-operative anesthesia evaluation. 1050 An Local 1103 Quick Note Time out 1104 Incision 1141 Quick Note Put on hold fro m pacu 1203 An Stop Meds Name Total propofol (DIPRIVAN) inFUSION 874.38 mg propofol (DIPRIVAN) 200 mg/ 20mL injecti on 30 mg ceFAZolin (ANCEF) 3 g IVPB 3 g lactated ringers infusion 700 mL * Agents Name O2 N20 Air * Blood No blood administrations on file. Lines, Drains, and Airways Type Details Placement Removal Wound 11/10/23; 1707; Incision; Perineum; I+D site 11/11/23 11/10/23 1707 by Jeannie Wiley RN Wound 11/10/23; 1839; Y; Foot; Left; left toe 11/10/23 1839 by Nahid Powell RN Wound 12/08/23; 1415; Y; Groin 12/08/23 1415 by Angi Carolina RN Wound 12/10/23; 1118; Incision; Foot; Left 12/10/23 1118 by Nilda Ruiz, SABINE Splint/Immobilizer 12/10/23; 1141; LLE; Foot/Ankle - PFS; Placed in OR 12/10/23 1141 by Martha Alonso RN Peripheral IV 12/08/23; 2113; Yes; 20 gauge, 1 3/4 in length; Anterior, Left; Forearm; 1; Placed in Unit; 12/13/23 12/08/234 by Mitra Alvarez RN 12/13/23 0000 by Natasha Vivar RN Peripheral IV 12/10/23; 0847; Yes; 20 gauge, 1 3/4 in length; Anterior, Right; Forearm; 1; Placed in Unit; 12/13/23; 1010; 0; 0 12/10/23 0847 by Doug Boggs RN 12/13/23 1010 by Natasha Vivar RN documented in this encounter Social History Tobacco Use Types Packs/Day Years [...] on file documented as of this encounter OR Notes * Anesthesia Postprocedure Evaluation - Clint White MD - 12/10/2023 3:24 PM CDT Anesthesia Post Eval Patient: Stephanie Low Procedure(s) Performed: REVISION, AMPUTATION SITE, POSSIBLE PARTIAL FOOT AMPUTATION, IRRIGATION ANDDEBRIDMENT, POSSIBLE SERIAL PROCEDURES, L LOWER EXTREMITY (Left: Foot) I've examined the patient and determined that he[facility] is [facility]est[facility] type: General () Patient location: PACU Patient status: Post-procedure vital signs reviewed and stable Level of Consciousness: Awake Post-op pain: Adequate Respiratory: Stable Cardiovascular: Stable PONV status: none Fluid status: Acceptable Last Vitals: Vitals Value Taken Time BP 132/71 12/12/232356 Temp 35.5 ??C (95.9 ??F) 12/12/232356 Pulse 69 12/12/232356 Resp 18 12/12/232356 SpO2 100 % 12/12/232356 * Anesthesia Preprocedure Evaluation - Clint White MD - 12/10/2023 10:22 AM CDT Anesthesia Pre-Evaluation Summary Statement: This is a 43 y.o. year old patient scheduled for REVISION, AMPUTATION SITE, POSSIBLE PARTIAL FOOT AMPUTATION, IRRIGATION AND DEBRIDMENT, POSSIBLE SERIAL PROCEDURES, L LOWER EXTREMITY (Left: Foot). Anesthesia Evaluation Internal or external H&P reviewed, patient examined and changes and/or additions made as needed Anesthesia Considerations , Pre-existing no pre-existing infection Additional ROS/Med Hx Findings: 43 y.o. 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), T2DM, tobacco dependence, and schizophrenia who is admitted on 12/07/2023 with L metatarsal head osteomyelitis Pulmonary - negative ROS and normal exam Neurological - negative ROS Psychiatric (+) mental illness (schizophrenia) Cardiovascular - negative ROS Rhythm: regular Rate: normal Endo (+) diabetes mellitus () Musculoskeletal - negative ROS HEENT - negative ROS GI - negative ROS Hematologic/Onc (+) anemia /Renal/Street Light Servicer - negative ROS Airway Mallampati: II TM distance: >3 FB Neck ROM: full Mouth Opening: good Dental - normal exam OB Other Physical Exam Anesthesia Plan ASA 2 MAC Post-op Care: routine analgesia Anesthetic plan and risks discussed with patient. Plan discussed with CYBER DEFENSE FORENSICS ANALYST. Vitals: 12/10/23 0700 BP: 145/69 Pulse: 72 Resp: 16 Temp: 36.9 ??C (98.4 ??F) SpO2: 94% documented in this encounter Miscellaneous Notes * Anesthesia Handoff Note - Gala Ferguson APRN, CRNA - 12/10/2023 12:02 PM CDT Anesthesia Post Handoff Patient: Stephanie Low Procedure(s) Performed: REVISION, AMPUTATION SITE, POSSIBLE PARTIAL FOOT AMPUTATION, IRRIGATION ANDDEBRIDMENT, POSSIBLE SERIAL PROCEDURES, L LOWER EXTREMITY (Left: Foot) Patient was stable and nail beds/oral mucosa pink at time of handoff. Patient location: Phase II Transportation: Patient was not placed on High Flow Oxygen. Anesthesia Type: MAC Patient met fast track criteria. Report to RN () The nurse's questions were answered. Last Vitals: Vitals: 12/10/23 1200 BP: (!) 153/91 Pulse: 68 Resp: 17 Temp: SpO2: 94% documented in this encounter Plan of Treatment Not on file documented as of this encounter Visit Diagnoses Not on filedocumented in this encounter Administered Medications Inactive Administered Medications - up to 3 most recent administrations Medication Order MAR Action Action Date Dose Rate Site ceFAZolin (ANCEF) IVPB Intravenous, INTRA-OP PRN ONCE MAY REPEAT, Starting on Wed12/10/23 at 1056, Until Wed12/10/23 at 1203 Given 12/10/2023 10:56 AM CDT 3 g lactated ringers infusion Intravenous, PERIOP CONTINUOUS, Starting on Wed12/10/23 at 1055, Until Wed12/10/23 at 1203 New Bag 12/10/2023 10:39 AM CDT propofol (DIPRIVAN) 200 mg/20mL injection Intravenous, INTRA-OP PRN ONCE MAY REPEAT, Starting on Wed12/10/23 at 1044, Until Wed12/10/23 at 1203 Given 12/10/2023 10:44 AM CDT 30 mg propofol 10 mg/mL Infusion PERIOP CONTINUOUS, Starting on Wed12/10/23 at 1045, Until Wed12/10/23 at 1203, Intravenous Infusing 12/10/2023 11:32 AM CDT 75 mcg/kg/min 62.955 mL/hr Infusing 12/10/2023 10:59 AM CDT 100 mcg/kg/min 83.94 mL /hr Infusing 12/10/2023 10:48 AM CDT 125 mcg/kg/min 104.925 mL/hr documented in this encounter Additional Health Concerns Infection Onset Date Last Indicated Resolved Time 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
--- OUTSIDE RECORDS SUMMARY | 2024-02-07 08:48 | XMS_ITS | Encounter Summary ---
Author Organization [facility] Address [address] [place] [id number] Phone Care Team Providers Care Detail Manager Name Role Phone Unavailable Primary Care Provider Unavailabl e Reason for Referral * Consult/Test/Treat (Routine) - New Request Specialty Diagnoses / Procedures Referred By Contac t Referred To Contact Surgery / BURN SURGERY Diagnoses Soft tissue infection 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[facility]HS) Clint Barber MD [address] [address] Referral ID Status Reason Start Date Expiration Date V isits Requested Visits Authorized [id number] New Request 12/14/2023 12/14/2024 1 1 * Consult/Test/Treat (Routine) - New Request Specialty Diagnoses / Procedures Referred By Contac t Referred To Contact Diagnoses Soft tissue infection Igor Glover MD [address] [address] PATIENT CHOICE Referral ID Status Reason Start Date Expiration Date V isits Requested Visits Authorized [id number] New Request 12/12/2023 12/12/2024 1 1 * Consult/Test/Treat (Routine) - New Request Specialty Diagnoses / Procedures Referred By Contac t Referred To Contact Physical Therapy / PHYSICAL THERAPY Diagnoses Soft tissue infection Igor Glover MD [address] [address] PATIENT CHOICE Referral ID Status Reason Start Date Expiration Date V isits Requested Visits Authorized [id number] New Request 12/12/2023 12/12/2024 1 1 Reason for Visit * Auth/Cert (Routine) Specialty Diagnoses / Procedures Referred By Contmini t Referred To Contact SURGERY Diagnoses Other acute osteomyelitis of left foot ([facility]) Eusebio Vivar MD [address] [place] [phone] Or P4 [address] [place] [address] Referral ID Status Reason Start Date Expiration Date Visits Re quested Visits Authorized [id number] 1 1 Encounter Details Date Type Department Care Team (Latest Contact Info) Description 12/07/2023 3:48 PM CDT - 12/14/2023 12:38 PM CDT Hospital Encounter [facility] Orthopaedic 701 [facility] [address].220 [place], [place] [id number] Eusebio Vivar MD [address] [place] [phone] Mirta Urena MD [address] [place] [address] [phone] Suzy Shafer PA-C [address] [place] [address] [phone] Igor Glover MD [address] [phone] Clint Barber MD [address] [place] [address] [phone] Other acute osteomyelitis of left foot ([facility]) Discharge Disposition: Discharged/transd to home (care by home health service organization) Social History Tobacco Use Types Packs/Day Years [...] Sign Reading Time Taken Comments Blood Pressure 135/68 12/14/2023 10:35 AM CDT Pulse 72 12/14/2023 10:35 AM CDT Temperature 37 ??C (98.6 ??F) 12/14/2023 8:00 AM CDT Respiratory Rate 15 12/14/2023 8:00 AM CDT Oxygen Saturation 97% 12/14/2023 8:00 AM CDT Inhaled Oxygen Concentration - - Weight 139.9 kg (308 lb 6.8 oz) 12/08/2023 3:00 PM CDT Height 180.3 cm (5' 11) 12/08/2023 2:00 PM CDT Body Mass Index 43.02 12/08/2023 2:00 PM CDT documented in this encounter Discharge Summaries * Clint Barber MD - 12/14/2023 8:01 AM CDT MEDICINE DISCHARGE SUMMARY Stephanie Low : 1980 Sex: male Date of Admission: 12/07/2023 Date of Discharge: 12/14/2023 Disposition: Health Care Facility Primary Care Physician: No primary care provider on file. BRIEF SUMMARY OF HOSPITALIZATION: 43 y/o male with PMH significant for recent left hallux amputation, recent demar's gangrene, DM2, schizophrenia, tobacco use disorder admitted on 12/07/2023 with left metatarsal head osteomyelitis now S/P I&D w/ resection 12/07 and repeat I&D 12/09. Treated with vancomycin. Cultures with MRSA. ID consulted. Received some HBO treatments, but this will be stopped on discharge due to cost/transport issues at [place]. HOSPITAL COURSE BY PROBLEM: Acute osteomyelitis of the left 1st metatarsal head with Cellulitis s/p I&D with resection 12/08/2023 Recent left hallux amputation 11/17/2023 Hx of right TMA: Was following up in Podiatry Clinic for post-op check and they had concern for osteo. XR also with concern for osteo of the 1st metatarsal head. Podiatry consulted and now s/p OR x2 with sterile surgical dressing in place. MRSA in wound and tissue cultures - NWB to E - F/U podiatry clinic in a week. Keep surgical dressing/splint in place until then DM2: A1c 6.8 in 07/2023. On glargine 30 units daily and lispro 6 units TID with meals. A1c 8.5%. - -Increase lantus to 35 units/day, novolog 10 units TID before meals. Acute Kidney Injury, resolved: Baseline creat ~1, but had been elevated as high as 3.21 in the setting of recent Demar's gangrene. Creat continues to trend down from this and is near baseline. 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 Healing well currently, per surgery evaluation. 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 Paranoid schizophrenia HILL: On prazosin, escitalopram and monthly paliperidone injections. Will continue these. Next due for paliperidone injection 12/12 - discussed with PharmD. HTN: Continue EXHAUST AND MUFFLER FITTER amlodipine. Hyperlipidemia: Continue EXHAUST AND MUFFLER FITTER rosuvastatin. Tobacco use disorder: Continue NRT. Hx of TBI. Malnutrition Weight: (!) 139.9 kg (308 lb 6.8 oz) Wt Change from Previous: 0 Kg Wt Change from Admit: 0 Kg % Wt Change from Adm: 0 % [place] Body Wt (IBW) Male (kg): 75.3 kg PERTINENT STUDIES & CONSULTS: Podiatry, ID, HBO consult OR x2 for I&D PENDING TESTS RESULTS: Surgical pathology, margins checked for sterility RECOMMENDATIONS AND FOLLOWUP: -Podiatry on 12/16 -Continue linezolid through 01/04 (could stop early on 12/22 if surgical margins cleared, podiatry can determine this at follow-up) -Fax labs drawn in [address] Aretha Damon -Surgery clinic visit 12/23 PHYSICAL EXAMINATION: BP 109/74 Pulse 88 Temp 37 ??C (98.6 ??F) (Temporal) Resp 15 Ht 1.803 m (5' 11) Wt (!) 139.9 kg (308 lb 6.8 oz) SpO2 97% BMI 43.02 kg/m?? Estimated body mass index is 43.02 kg/m?? as calculated from the following: Height as of this encounter: 1.803 m (5' 11). Weight as of this encounter: 139.9 kg (308 lb 6.8 oz). General appearance: Alert, cooperative and in no distress. Pulmonary: CTAB. Cardiovascular Heart: Auscultated on the right, RRR. Gastrointestinal Abdominal: Soft with active bowel sounds. Musculoskeletal: Extremities: Left foot TMA. Large splint and dressing to RLE. Psychiatric: Speech normal. Affect appropriate. Skin: Duskiness to right foot. PLANNED DISCHARGE ORDERS: Discharge Procedure Orders CBC WITH PLATELET Standing Status: Future Standing Exp. Date: 03/13/24 Order Comments: Fax to Dr. Aretha Damon at [phone] PANEL HEPATIC FUNCTION Standing Status: Future Standing Exp. Date: 03/13/24 Order Comments: Fax to Dr. Aretha Damon at [phone] Scheduling Instructions: Hepatic Function Panel includes: Albumin, Alk Phos, ALT, AST, Direct Bilirubin, Total Bilirubin and Total Protein C-REACTIVE PROTEIN Standing Status: Future Standing Exp. Date: 03/13/24 Order Comments: Fax to Dr. Aretha Damon at [phone] CREATININE, SERUM Standing Status: Future Standing Exp. Date: 03/13/24 Order Comments: Fax to Dr. Aretha Damon at [phone] Referral to Physical Therapy Referral Priority: Routine Referral Type: Consult/Test/Treat Referral Location: PATIENT CHOICE Requested Specialty: Physical Therapy Number of Visits Requested: 1 Expiration Date: 12/12/24 Referral to Occupational Therapy Referral Priority: Routine Referral Type: Consult/Test/Treat Referral Location: PATIENT CHOICE Number of Visits Requested: 1 Expiration Date: 12/12/24 Referral to Burn/Wound/Limb Preservation Referral Priority: Routine Referral Type: Consult/Test/Treat Requested Specialty: Surgery Number of Visits Requested: 1 Expiration Date: 12/14/24 Vital Signs - Per Facility protocol Order Comments: Obtain vital signs daily for seven days, then weekly for four weeks, then monthly thereafter unless directed otherwise. A Provider has reviewed and approved of plan of care Order Specific Question Answer Comments A Provider has reviewed and approved of plan of care? Yes Okay for Residential Facility standing orders? Order Specific Question Answer Comments OK for Residential Facility house standing orders? Yes Give Mantoux unless current or contraindicated. Scheduling Instructions: Please specify in comments! Resume previous standing orders per alf policy Order Comments: Resume previous standing orders per alf policy Scheduling Instructions: Please specify in comments! Patient is on a Consistent Carbohydrate diet at the following level Scheduling Instructions: Please specify in comments! Order Specific Question Answer Comments What Level should the Consistent Carbohydrate Diet be for Adult Healthcare Facility? Med Other Nursing orders (Please specify in comments) Order Comments: Other Nursing orders - He will need lots of encouragement and reminders to maintaina non-weightbearing status on his injured foot. Scheduling Instructions: Please specify in comments! Nursing Communication Order:Miscellaneous Order Comments: Wound Dressing Recommendations for scrotum/pevis wound. 1. Remove old dressing and clean wound with Vashe and gauze 2. Apply Cavilon skin barrier to periwound skin 3. Lightly pack wound and any tunnels/undermining with Vashe damp Kerlix 4. Cover with ABDs and secure with minimal tape Change Daily or BID for heavy drainage Scheduling Instructions: Please specify in comments! Nursing Communication Order:Miscellaneous Order Comments: For Left Foot Wound: Dressing: Dressed with Betadine 4 x 4 gauze, 4 x 4's, Archana, cast padding, well- padded posterior splint. Okay for nursing to reinforce. Podiatry to manage dressing changes at this time. Patient expected to leave dressings clean, dry, and intact until scheduled follow up. Scheduling Instructions: Please specify in comments! CODE STATUS Full Code Order Specific Question Answer Comments Does the Patient have preferences regarding life sustaining measures (these options only apply whenthe patient has a pulse) No Discussed Code Status With Whom? Not discussed Discharge Diagnosis Order Specific Question Answer Comments Patient aware of diagnosis? yes Weight - Per Facility Protocol Order Comments: Obtain weekly weights for four weeks, then monthly thereafter unless directed otherwise Discharge condition Order Specific Question Answer Comments Discharge condition? Improving Rehab Potential Order Specific Question Answer Comments Rehab potential? Good Is the patient free of Communicable Disease? Order Specific Question Answer Comments Is the patient free from communicable disease Yes Discharge Potential Order Specific Question Answer Comments Discharge potential? Length of Stay less than 30 days Admission H&P Order Specific Question Answer Comments Is admission H&P valid? yes Discharge Summary Enclosed Order Specific Question Answer Comments Discharge summary enclosed? Yes Why you were at the hospital: Order Comments: You were in the hospital to have a foot infection treated. When should I be concerned? Order Comments: Go to the Emergency Department or call 911 IF: -- you have worsening unsteadiness on feet, chest pain, shortness of breath, dizziness, or severe headache -- you have pain that is not controlled by medicine, rest, elevation, or ice -- you have redness, swelling, or severe pain in one or both of your legs -- you feel you are getting worse or having an increase in problems Please contact your primary care provider as needed. Order Comments: Please contact your primary care provider as needed. Up as tolerated activity level. Order Comments: UP TOLERATED -- Rest is an important part of healing. Save your energy by spreading out activities that make youtired. Rest as needed. -- Slowly increase your level of activity. Left Leg Weight Bearing Order Comments: No weight bearing: Do not put any weight on your leg/foot. Regular diet Order Comments: -- Eat a wide variety of foods, including fruits and vegetables, dairy, grains and meats. Consistent carbohydrate diet Order Comments: -- Carbohydrates include milks, fruits, starches (such as bread, cereal, potatoes and pasta); peas and corn; and sweets and desserts. Eat these foods in moderation. -- Eat balanced meals with fruits, vegetables, starches, meats and milk products. -- Limit foods high in calories like cake, candy, cookies, pie and regular soda. -- Choose sugar-free beverages. -- Eat regular meals and don't skip meals. Take your medicine and plan ahead for refills Order Comments: - It is important that you take the medicines on your list. Work with your health care provider or pharmacist if you have questions about your medicine. - Plan ahead and use the Refill Line so that you don't run out of your medicine. It may take time to review your chart and get the medicine ordered. Medication List START taking these medications linezolid 600 mg tablet Commonly known as: ZYVOX Take 1 tablet (600 mg) by mouth twice daily for 25 days. Indications: Infection of Foot in DiabeticPatient CHANGE how you take these medications insulin GLARGINE 100 units/mL injection vial Commonly known as: LANTUS Inject 35 UNITS subcutaneously every twenty-four hours. Indications: Type 2 Diabetes What changed: how much to take insulin LISPRO 100 UNIT/ML Kwikpen Commonly known as: HumaLOG KwikPen Inject 0.1 mL (10 UNITS) subcutaneously 3 times daily before meals. What changed: how much to take CONTINUE taking these medications acetaminophen 325 mg tablet Commonly known as: TYLENOL Take 3 tablets (975 mg) by mouth 3 times daily. Indications: Fever, Pain amLODIPine 10 mg tablet Commonly known as: NORVASC Take 1 tablet (10 mg) by mouth daily. Indications: High Blood Pressure Disorder bisacodyl 10 mg suppository Commonly known as: DULCOLAX 1 suppository (10 mg) by Rectal route daily as needed for Constipation. Indications: Constipation chlorhexidine 0.12% solution Commonly known as: PERIDEX Swish and spit 15 mL by mouth daily. Indications: Gum Inflammation cyclobenzaprine 10 mg Commonly known as: FLEXERIL Take 1 tablet (10 mg) by mouth 3 times daily. Indications: Muscle Spasm docusate sodium 100 mg capsule Commonly known as: COLACE Take 1 capsule (100 mg) by mouth twice daily as needed for Constipation. escitalopram 20 mg tablet Commonly known as: LEXAPRO Take 1 tablet (20 mg) by mouth at bedtime. Indications: Generalized Anxiety Disorder hydrOXYzine pamoate 25 mg capsule Commonly known as: VISTARIL Take 1-2 capsules (25-50 mg) by mouth every 6 hours as needed for Itching. Indications: Itching Invega Sustenna 156 MG/ML injection Generic drug: paliperidone palmitate ER Inject 1 mL (156 mg) into a muscle every month. Indications: Schizoaffective Disorder loratadine 10 mg tablet Commonly known as: CLARITIN Take 1 tablet (10 mg) by mouth daily. Indications: Hayfever milk of magnesia 400 mg/5 mL suspension Take 15 mL by mouth daily as needed for Constipation. Indications: Acid Indigestion nicotine 14 mg/ 24hr Patch 24 hr Commonly known as: NICOTROL Apply 1 patch to skin daily. Indications: Nicotine Addiction nicotine polacrilex 2 mg gum Commonly known as: NICORELIEF 1 each (2 mg) by Gum route every 1 hour as needed for Nicotine Craving. Indications: Nicotine Addiction ondansetron 4 mg Tabs Commonly known as: ZOFRAN Take 1 tablet (4 mg) by mouth every 6 hours as needed for Nausea/Vomiting. Indications: Nausea and Vomiting polyethylene glycol 3350 17 g Packet Commonly known as: MIRALAX;GLYCOLAX Take 17 g by mouth daily. Indications: ConstipationTake 1 capful to 17 gm zo mixed with full glass of water every day as directed. prazosin 1 mg Capsule Commonly known as: MINIPRESS Take 1 capsule (1 mg) by mouth at bedtime. Indications: High Blood Pressure Disorder rosuvastatin 10 mg tablet Commonly known as: CRESTOR Take 1 tablet (10 mg) by mouth at bedtime. Indications: Elevation of Both Cholesterol and Triglycerides in Blood sennosides 17.2 mg Tabs Commonly known as: SENOKOT Take 1 tablet (17.2 mg) by mouth twice daily. traZODone 50 mg tablet Commonly known as: DESYREL Take 1 tablet (50 mg) by mouth at bedtime. Indications: Trouble Sleeping Where to Get Your Medications Information about where to get these medications is not yet available Ask your nurse or doctor about these medications insulin GLARGINE 100 units/mL injection vial insulin LISPRO 100 UNIT/ML Kwikpen linezolid 600 mg tablet Discussed diagnosis and treatment plan with the patient. Patient verbalized understanding of condition and treatment plan. Planned readmission in the next 30 days: Yes, additional planned surgery I personally spent greater than 30 minutes in the final examination and review of hospitalization in discharging this patient. documented in this encounter Medications at Time [...] as of this encounter Progress Notes * Dawood Sargent RN - 12/14/2023 12:38 PM CDT DISCHARGE NOTE D: Patient has been discharged. A: (As documented in the Discharge Planning Flowsheet) Discharge Instructions (AVS): AVS given Discharge clothing/valuables: has adequate clothing Discharge medications: patient will fill own prescriptions elsewhere Home equipment status: no equipment needed Home equipment/supplies recommended: None Final discharge destination: Subacute alf with rehab care R: The patient and caregiver(s) understood the AVS. P: Support patient and caregiver(s) if they call back with questions. * Talita Patel MD - 12/14/2023 9:52 AM CDT Hyperbaric Oxygen Treatment Note Stephanie Low Date: 12/14/2023 Treatment Indication(s): Non healing diabetic ulceration (Pepe > 3) s/p failed L hallux amputation with dehiscence/flapfailure; recurrence of infection necessitating repeat surgical intervention and broad spectrum antibiotics Osteomyelitis Treatment Number: 3 HPI, problem list, nursing notes, flowsheet and vital signs reviewed. Treatment was uneventful, able to complete treatment without difficulty. Blood pressure 109/74, pulse 88, temperature 37 ??C (98.6 ??F), temperature source Temporal, resp. rate 15, height 1.803 m (5' 11), weight (!) 139.9 kg (308 lb 6.8 oz), SpO2 97%.. Plan: Minimum of 20 treatments with possibility of extension of the treatment series pending response to treatment Please do not hesitate to call the Hyperbaric Department at [phone] during clinic hours or page pavilion cutter staff with any updates, questions, or concerns. Associated attestation - Douglas Morris II, MD - 12/14/2023 3:50 PM CDT Continuous attending physician supervision was provided throughout the hyperbaric oxygen treatment.I have reviewed and agree with the treatment note created by the Hyperbaric Medicine Fellow: Talita Patel MD. Appropriate addendums were made as needed above. Douglas Morris II, MD, 12/14/2023 3:50 PM * Eusebio Perez, PharmD - 12/13/2023 9:07 PM CDT Images from the original note were not included. PHARMACY VANCOMYCIN NOTE Stephanie Low : 1980 Sex: male Assessment: Interpretation of level timing: Level was drawn 11.5 hours from previous dose, which is appropriate. Interpretation of trough level and current regimen: The level drawn suggests that the current regimen is appropriate based on the desired trough. Plan: 1. Regimen: Vancomycin 1250 mg q12h 2. Next level planned: Next level dependent on clinical course/duration - PharmD assessing daily. 3. Continue to monitor urine output/Scr. 4. PharmD will follow, please page if you have questions. Indication for vancomycin therapy: osteomyelitis Current vancomycin regimen: Vancomycin 1250 mg q12h Dose based on: adjusted BW Current estimated CrCl: 145 mL/min Renal function appears: stable Recent Creatinine: Lab Results Component Value Date CR 0.92 12/11/2023 CR 0.92 12/10/2023 CR 0.98 12/09/2023 Desired vancomycin trough: 13-18 mcg/mL Level: Lab Results Component Value Date VANCOMYCIN 17.0 12/13/2023 (most recent) Eusebio Perez, Jaxon 12/13/2023 21:07 Pager: (Telmediq) * Emily Hannah RN - 12/13/2023 1:07 PM CDTSummary: Discharge planning Clinical Coordinator Update Patient is medically ready for discharge back to [facility] since 12/11. Spoke to Tabatha at [facility] today ([phone]) who reported that the patient was not on a bed hold but they are happy to have him return. They don't have a bed for him until tomorrow so the ride was changed to tomorrow at noon. They cannot accommodate HBO for the patient. Emily Hannah RN, 12/13/2023 1:10PM * Deon Suárez - 12/13/2023 8:55 AM CDT Transportation set for patient as follows: Date and time () of patient departure: 12/13/2023 @1530 [facility] [address] [place], [place] Type of ride: wheelchair Transportation vendor of ride: [facility] [phone] * If this ride needs to be rescheduled or cancelled, inpatient staff should call this vendor directly to reschedule or cancel, and document this in the chart. If the ride is cancelled, please also cancel the order in the chart. Nurses will receive a phone call if the ride is arriving in 120 minutes or less. Social Workers and Clinical Coordinators will be informed via a TelFanattac page. PCS form was completed in Progress Notes and is ready to be signed and routed to vendor by requestor(for stretcher rides only). Deon Suárez, 12/13/2023 8:56 AM Patient name: Stephanie Low Date of : 1980 Patient Admitting diagnosis: Patient Active Problem List Diagnosis 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HHS) Hyperglycemia At risk for sexually transmitted infection due to unprotected sex Other acute osteomyelitis of left foot (CMS/HHS) Soft tissue infection Attending provider: Igor Glover MD Insurance: [facility] Secondary insurance: [employer] Height: Height: 180.3 cm (5' 11) Weight: Weight: (!) 139.9 kg (308 lb 6.8 oz) * Talita Patel MD - 12/13/2023 7:52 AM CDT Hyperbaric Oxygen Treatment Note Stephanie Low Date: 12/13/2023 Treatment Indication(s): Non healing diabetic ulceration (Pepe > 3) s/p failed L hallux amputation with dehiscence/flapfailure; recurrence of infection necessitating repeat surgical intervention and broad spectrum antibiotics Osteomyelitis Treatment Number: 2 HPI, problem list, nursing notes, flowsheet and vital signs reviewed. Treatment was uneventful, able to complete treatment without difficulty. BP 132/71 (Cuff Location: Left Arm) Pulse 69 Temp 35.5 ??C (95.9 ??F) (Oral) Resp 18 Ht 1.803 m (5' 11) Wt (!) 139.9 kg (308 lb 6.8 oz) SpO2 100% BMI 43.02 kg/m?? Plan: Minimum of 20 treatments with possibility of extension of the treatment series pending response to treatment Please do not hesitate to call the Hyperbaric Department at [phone] during clinic hours or page pavilion cutter staff with any updates, questions, or concerns. Associated attestation - Douglas Morris II, MD - 12/13/2023 2:40 PM CDT Continuous attending physician supervision was provided throughout the hyperbaric oxygen treatment.I have reviewed and agree with the treatment note created by the Hyperbaric Medicine Fellow: Talita Patel MD. Appropriate addendums were made as needed above. Douglas Morris II, MD, 12/13/2023 2:39 PM * Igor Glover MD - 12/12/2023 2:02 PM CDT MEDICINE PROGRESS NOTE - STAFF Stephanie Daryamaryzena : 1980 Sex: male PATIENT SUMMARY: 43 y/o male with PMH significant for recent left hallux amputation, recent demar's gangrene, DM2, schizophrenia, tobacco use disorder admitted on 12/07/2023 with left metatarsal head osteomyelitis now S/P I&D w/ resection 12/07 and repeat I&D 12/09. ASSESSMENT AND PLAN BY PROBLEM: Acute osteomyelitis of the left 1st metatarsal head with Cellulitis s/p I&D with resection 12/08/2023 Recent left hallux amputation 11/17/2023 Hx of right TMA: Was following up in Podiatry Clinic for post-op check and they had concern for osteo. XR also with concern for osteo of the 1st metatarsal head. Podiatry consulted and now s/p OR x2 with sterile surgical dressing in place. MRSA in wound and tissue cultures - NWB to LLE - Podiatry following - ID consulted - Continue vanc, move PO linezolid at discharge - Tylenol and oxycodone for pain - PT - HBO, might not continue if a barrier to discharge, per podiatry DM2: A1c 6.8 in 07/2023. On glargine 30 units daily and lispro 6 units TID with meals. - glargine to 30 units daily - Continue aspart 2 unit/carb + medium dose sliding scale - Consistent carb diet Acute Kidney Injury, resolved: Baseline creat ~1, but had been elevated as high as 3.21 in the setting of recent Demar's gangrene. Creat continued to trend down from this and is near baseline. 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 Healing well currently, per surgery evaluation. 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 Paranoid schizophrenia HILL: On prazosin, escitalopram and monthly paliperidone injections. Will continue these. Next due for paliperidone injection 12/12 - discussed with PharmD. HTN: Continue EXHAUST AND MUFFLER FITTER amlodipine. Hyperlipidemia: Continue EXHAUST AND MUFFLER FITTER rosuvastatin. Tobacco use disorder: Continue NRT. Hx of TBI. FEN: Regular consistent carb diet. Code status: Full code. VTE prophylaxis: VTE prophylaxis with lovenox to start 12/10. Lines: No central line. No mujica. Discharge planning: Discharg to [facility] in [place] when they're able to accept him back.Possibly tomorrow. SUBJECTIVE: Feeling good still today. Using Commode. Trying to stay off foot when he can. No fevers, chills. Headache through the morning. No blurry vision. OBJECTIVE: Vital Signs: BP 133/74 (Cuff Location: Right Arm) Pulse 65 Temp 36.7 ??C (98 ??F) (Oral) Resp 18 Ht 1.803 m (5' 11) Wt (!) 139.9 kg (308 lb 6.8 oz) SpO2 95% BMI 43.02 kg/m?? General appearance: Alert, cooperative and in no distress. Pulmonary: CTAB. Cardiovascular Heart: Auscultated on the right, RRR. Gastrointestinal Abdominal: Soft with active bowel sounds. Musculoskeletal: Extremities: Left foot TMA. Large splint and dressing to RLE. Psychiatric: Speech normal. Affect appropriate. Skin: Duskiness to right foot. INDEPENDENT INTERPRETATION OF LABORATORY, PATHOLOGY, AND RADIOLOGY DATA: Lab results: Reviewed Igor Glover MD, 12/12/2023 2:02 PM Page via Telemed[employer] * Narcisa Tobar LGSW - 12/12/2023 9:50 AM CDT . Care Management Follow-up Note Patient Name: Stephanie Low Date: 12/12/2023 Patient/Family Discharge Goals: Patient's Discharge Goal: back to [facility]' Discharge Goal: n/a Discharge Destination Expected Discharge Date: 12/13/2023 Time: Potential Discharge within 24 Hours: Discharge plan: Above plan of care was created and discussed with pt and is consistent with patient???s overall goals of care. Summary of pertinent information: Call out to admissions requesting a call back. Pt is medically ready for discharge, awaiting to her back from admissions. Current Discharge Placement Information: Continued Care and Services - Admitted Since 12/07/2023 Destination Service Provider Request Status Selected Services Address Phone Fax Patient Preferred [facility] Pending - No Request Sent N/A [id number] [facility] [phone] -- Narcisa Tobar LGSW, 12/12/2023 9:50 AM * Aretha Damon MD - 12/12/2023 8:53 AM CDT ID PROGRESS NOTE Stephanie Low 1980 male [id number] ASSESSMENT: MRSA left foot osteomyelitis S/p I&D on 12/08/23, path with acute osteomyelitis so repeat I&D performed 12/10/2312/07 cultures with MRSA susceptible to TMP/SMX, linezolid, vancomycin (true pathogen), and Corynebacterium species (skin colonizer, unlikely pathogen) Necrotizing fascitis Improving after I&D x 2 and 7 days IV Ceftriaxone and flagyl (11/12-11/18/23) Type II diabetes mellitus, last A1C 8.5% 12/08/23 Discussion: Pt is known to our service, hx of MRSA and Staph lugdunensis osteomyelitis with defnitive resection and clear proximal margins on 11/17/23 and necrotizing fascitis/Demar's s/p I&D 11/11/23 and ceftriaxone and flagyl from 11/12-11/18/23. He now presents with fever from his facility, found to have acute osteomyelitis on pathology from the bone of the left foot on 12/08/23 intra-op, cultures growing MRSA, susceptible to linezolid and TMP/SMX, as well as vancomycin, Daptomycin. Will plan 4 weeks of oral therapy, but if repeat pathology shows clear margins this can be shortened to 2 weeks from that amputation 12/10/23, so potential stop dates are either 12/23/23 (if clear margins) or 01/06/24 (if proximal margins shows clean/harm bone, no evidence of osteomyelitis). Continue IV vancomycin for now, until just prior to discharge. RECOMMENDATIONS: - Continue IV vancomycin until just prior to discharge - At discharge start linezolid 600 mg BID x 4 weeks (finish 01/06/24); can stop at 12/23/23 if proximal margins are clear on path - Follow-up on 12/10/23 pathology to ensure clear proximal margins - Fax CBC w/ diff, CRP, creatinine and LFTs to Dr. Damon on 12/23/23; ID1 will sign-off and follow-up on pathology after discharge. Please page with questions. SUBJECTIVE/OVERNIGHT EVENTS: Pt is feeling well, eager to be discharged. No diarrhea, no rash, pain is well- controlled. He is listening to his favorite music. ANTI-INFECTIVES: IV Vancomycin 12/06- Previous: IV Piperacillin-tazobactam 12/06-12/10 EXAMINATION: BP 133/74 (Cuff Location: Right Arm) Pulse 65 Temp 36.7 ??C (98 ??F) (Oral) Resp 18 Ht 1.803 m (5' 11) Wt (!) 139.9 kg (308 lb 6.8 oz) SpO2 95% BMI 43.02 kg/m?? Constitutional: Cooperative, Looks well Psychiatric: alert, oriented, cooperative, normal affect. ENT: no thrush. Pulmonary: chest symmetric, lungs clear bilaterally and no crackles, wheezes or rales Cardiovascular: Regular rate and rhythm, S1, S2 GI/Abdomen: Soft, non-tender, non-distended, normoactive bowel sounds Extremities: L foot in GABRIELLA bandage. Skin: no rash, Left foot bandaged, no erythema above bandaging. Neurologic: diminished sensation in distal Les. RELEVANT DATA: Labs: Lab Results Component Value Date/Time WBC 8.72 12/11/2023 0550 PLT 400 12/11/2023 0550 HGB 10.6 (L) 12/11/2023 0550 CR 0.92 12/11/2023 0550 CRP 77 (H) 12/08/2023 1647 Lab Results Component Value Date/Time WBC 8.72 12/11/2023 0550 WBC 8.35 12/10/2023 0506 WBC 10.39 (H) 12/08/2023 1647 Lab Results Component Value Date/Time CR 0.92 12/11/2023 0550 CR 0.92 12/10/2023 0506 CR 0.98 12/09/2023 1756 Microbiology: 12/08/23 Tissue cultures L foot: MRSA In 2 of 2, S to linezolid, TMP/SMX, vancomycin (JORDY 1), daptomycin (JORDY 1), Corynebacterium striatum in 1 of 2. 12/07/23 Swab of left foot: rare MRSA, Corynebacterium striatum 12/08/23 Fungal cultures L foot: no fungal elements in 2 of 2 12/08/23 Anaerobic cultures L foot: NGTD in 2/2 11/17/23 Left foot tissue cultures: MRSA and Staph lugdunensis FACULTY NOTE I saw and evaluated Stephanie Low on today, 12/12/2023. I have spent greater than or equal to 55 minutes on this consultation today in which greater than 50% of this time was spent in counseling/coordination of care regarding above issues. Aretha Damon MD, 12/12/2023 2:18 PM * Igor Glover MD - 12/11/2023 7:34 PM CDT MEDICINE PROGRESS NOTE - STAFF Stephanie Low : 1980 Sex: male PATIENT SUMMARY: 43 y/o male with PMH significant for recent left hallux amputation, recent demar's gangrene, DM2, schizophrenia, tobacco use disorder admitted on 12/07/2023 with left metatarsal head osteomyelitis now S/P I&D w/ resection 12/07 and repeat I&D 12/09. ASSESSMENT AND PLAN BY PROBLEM: Acute osteomyelitis of the left 1st metatarsal head with Cellulitis s/p I&D with resection 12/08/2023 Recent left hallux amputation 11/17/2023 Hx of right TMA: Was following up in Podiatry Clinic for post-op check and they had concern for osteo. XR also with concern for osteo of the 1st metatarsal head. Podiatry consulted and now s/p OR x2 with sterile surgical dressing in place. MRSA in wound and tissue cultures - NWB to LLE - Podiatry following - ID consulted - Continue vanc, stop zosyn today, to PO at discharge - Tylenol and oxycodone for pain - PT - HBO, might not continue if a barrier to discharge, per podiatry DM2: A1c 6.8 in 07/2023. On glargine 30 units daily and lispro 6 units TID with meals. - glargine to 30 units daily - Continue aspart 2 unit/carb + medium dose sliding scale - Consistent carb diet Acute Kidney Injury, resolved: Baseline creat ~1, but had been elevated as high as 3.21 in the setting of recent Demar's gangrene. Creat continues to trend down from this and is near baseline. 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 Healing well currently, per surgery evaluation. 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 Paranoid schizophrenia HILL: On prazosin, escitalopram and monthly paliperidone injections. Will continue these. Next due for paliperidone injection 12/12 - discussed with PharmD. HTN: Continue EXHAUST AND MUFFLER FITTER amlodipine. Hyperlipidemia: Continue EXHAUST AND MUFFLER FITTER rosuvastatin. Tobacco use disorder: Continue NRT. Hx of TBI. FEN: Regular consistent carb diet. Code status: Full code. VTE prophylaxis: VTE prophylaxis with lovenox to start 12/10. Lines: No central line. No mujica. Discharge planning: Discharg to [facility] in [place] when they're able to accept him back.Possibly tomorrow. SUBJECTIVE: Stable today. Feeling well overall. Pain is minimal. Good appetite. OBJECTIVE: Vital Signs: BP 148/61 (Cuff Location: Right Arm) Pulse 75 Temp 37.1 ??C (98.7 ??F) (Oral) Resp 18 Ht 1.803 m (5' 11) Wt (!) 139.9 kg (308 lb 6.8 oz) SpO2 94% BMI 43.02 kg/m?? General appearance: Alert, cooperative and in no distress. Pulmonary: CTAB. Cardiovascular Heart: Auscultated on the right, RRR. Gastrointestinal Abdominal: Soft with active bowel sounds. Musculoskeletal: Extremities: Left foot TMA. Large splint and dressing to RLE. Psychiatric: Speech normal. Affect appropriate. Skin: Duskiness to right foot. INDEPENDENT INTERPRETATION OF LABORATORY, PATHOLOGY, AND RADIOLOGY DATA: Lab results: Reviewed Igor Glover MD, 12/11/2023 7:34 PM Page via takokat * Eusebio Perez, PharmD - 12/11/2023 3:38 PM CDT Images from the original note were not included. PHARMACY VANCOMYCIN NOTE Stephanie Low : 1980 Sex: male Assessment: Interpretation of level timing: Level was drawn ~12 hours from previous dose, which is appropriate. Interpretation of trough level and current regimen: The level drawn suggests that the current regimen is providing a trough concentration higher than desired. Plan: 1. Regimen: Vancomycin 1250 mg q12h Level slightly above intended goal on current regimen after 3rd dose, will decrease dose given goalrange. PharmD to follow subsequent level on new regimen. 2. Next level planned: Will obtain next level 12/12 at 1700 3. Continue to monitor urine output/Scr. 4. PharmD will follow, please page if you have questions. Indication for vancomycin therapy: osteomyelitis - MRSA positive Current vancomycin regimen: Vancomycin 1500 mg q12h Dose based on: adjusted BW Current estimated CrCl: 145 mL/min Renal function appears: stable Recent Creatinine: Lab Results Component Value Date CR 0.92 12/11/2023 CR 0.92 12/10/2023 CR 0.98 12/09/2023 Desired vancomycin trough: 13-18 mcg/mL Level: Lab Results Component Value Date VANCOMYCIN 19.6 12/11/2023 (most recent) Eusebio Perez, Jaxon 12/11/2023 19:22 Pager: ([employer]) * Lizbeth Cavazos LICSW - 12/11/2023 2:41 PM CDT Weekend Inpatient Social Work Note Summary: Weekend SW paged by bedside RN to help facilitate coordination back to TCU today. GARY called Cruz Aguiar and left a voicemail. Many barriers are at play for a weekend return - patient hasIV antibiotics, he is recommended to receive 20 HBO sessions (1st today), and has [facility] Medicare Advantage (which requires prior authorization). GARY advised this likely cannot be resolved during the weekend due to the barriers listed above. Follow up needed: GARY will try to problem solve if Cruz Aguiar calls back, if not weekday team to follow up on plan for discharge. RAJ Cadena, PLACIDO Inpatient Intelligence Research Specialist - Casual (weekends only) Available via Powered Lizbeth Cavazos LICSW, 12/11/2023 2:41 PM Addendum 1550: SW received update from attending physician sharing that if HBO is a barrier, it could be discontinued, and IV abx can be switched to PO for discharge. Lizbeth Cavazos LICSW, 12/11/2023 3:59 PM * Kit Mcconnell MD - 12/11/2023 8:20 AM CDT Hyperbaric Oxygen Treatment Note Eugeneeduarda Lackeymaryzena Date: 12/11/2023 Treatment Indication(s): Non healing diabetic ulceration (Pepe > 3) s/p failed L hallux amputation with dehiscence/flapfailure; recurrence of infection necessitating repeat surgical intervention and broad spectrum antibiotics Osteomyelitis Treatment Number: 1 Interval history: RTOR yesterday for irrigation with debridement down to level of and including bonel L partial first metatarsal amputation. He was evaluated by Infectious disease with recommendations for discontinue Zosyn; continuation of Vancomycin based on MRSA cultures obtained 12/07 intraoperatively. HPI, problem list, nursing notes, flowsheet and vital signs reviewed. Treatment was uneventful, able to complete treatment without difficulty. BP 130/62 (Cuff Location: Right Arm) Pulse 63 Temp 36.7 ??C (98 ??F) Resp 18 Ht 1.803 m (5'11) Wt (!) 139.9 kg (308 lb 6.8 oz) SpO2 95% BMI 43.02 kg/m?? Dive # 1. No stops. 8/10 surgical site pain; PRN oxycodone administered w/ improvement of symptoms.Teeds 0R/0L pre/post Glucose 173 pre dive Plan: Minimum of 20 treatments with possibility of extension of the treatment series pending response to treatment Please do not hesitate to call the Hyperbaric Department at [phone] during clinic hours or page pavilion cutter staff with any updates, questions, or concerns. Associated attestation - Nikolai Martinez MD - 12/11/2023 10:05 AM CDT Continuous attending physician supervision was provided throughout the hyperbaric oxygen treatment. I have reviewed and agree with the treatment note created by Fellow: Kit Mcconnell MD. * Suzy Patino, DPMorelia - 12/11/2023 7:10 AM CDT Images from the original note were not included. Podiatric Surgery Inpatient Progress Note - PGY-2 Stephanie Low : 1980 Sex: male Patient Summary: 43 y/o male with PMH significant for recent left hallux amputation, recent demar's gangrene, DM2, schizophrenia, tobacco use disorder admitted on 12/07/2023 with left metatarsal head osteomyelitis now S/P I&D w/ resection 12/07. ASSESSMENT: 1 day s/p partial 1st metatarsal amputation, I&D, left (DOS 12/10/23, Dr Patino) s/p partial first ray amputation with irrigation and debridement down to and including the level ofbone (DOS: 12/08/23; Dr. Palomo) --Indications: New Acute Osteomyelitis of first metatarsal head with cellulitis, worsening Incisiondehiscence and exposed bone due to noncompliance, left --No showed outpatient appointments and walked postoperatively resulting in incision dehiscence s/p Left hallux amputation (DOS 11/17/2023 Dr. Palomo) --Indication: gangrenous hallux, possible stable gas forming infection, right Daily Tobacco Use --AUS completed 11/16 with no additional workup indicated Controlled T2DM with peripheral neuropathy --A1C: 8.5% 12/08/2023, up from 6.8% 07/2023 Right TMA Paranoid Schizophrenia History of TBI --Patient is own [facility] RECOMMENDATIONS: 1. Dressing: Dressed with Betadine 4 x 4 gauze, 4 x 4's, Archana, cast padding, well-padded posteriorsplint. Okay for nursing to reinforce. Podiatry to manage dressing changes at this time. Patient expected to leave dressings clean, dry, and intact until scheduled follow up. 2. Activity: Nonweightbearing in posterior splint, left lower extremity. Recommend PT/OT consult. 3. Antibiotics: Recommend ID consult, ID involved during previous admission. Intraoperative cultures taken 12/07 and 12/09. Bone felt firm/hard during osteotomy. 4. Vascular: Continue HBO while inpatient and outpatient if able. HBO should not be barrier to discharge so if facility is unable to accommodate transport, okay to discontinue. AUS 11/17/2023 patent. TCO2 and Dulce obtained, results indicate good probability for wound healing. 5. Surgery: No plans to RTOR this admission. S/P above procedures. 6. Imaging: No additional imaging needed at this time. XR completed 12/06 with new osteomyelitis of first metatarsal head without gas. 7. Labs: Continue daily labs for inflammatory markers 8. Follow-up: Patient is okay to discharge from podiatry perspective. Patient is scheduled for follow up 12/17/2023 1:45 PM (Arrive by 1:35 PM). We will continue to follow while admitted. Please page pavilion cutter resident with questions. Patient was discussed with pavilion cutter staff Interval history: Patient seen and evaluated bedside. States that he is not having any pain and he has been comfortable in this postoperative period. He states he does not have any nausea, vomiting, fever or chills. He looks forward to HBO therapy and is impressed by the science behind it. He is hopeful that he willnot have continued amputations in the future and is trying to improve his comorbidities and diabetes. He denies any questions related to his operative foot. We discussed nonweightbearing status. Denies any additional questions or concerns at this time. REVIEW OF SYSTEMS: ALL other ROS negative except for those noted in HPI. PHYSICAL EXAMINATIONS: Temp (24hrs), Av.4 ??C (97.5 ??F), Min:36.1 ??C (96.9 ??F), Max:36.9 ??C (98.4 ??F) General: No apparent distress Psych: Alert and oriented x3 Respiratory: Breathing is non-labored, regular rate and rhythm Lymph: No LE lymphadenopathy Vascular: Palpable pulses noted, left foot Capillary filling time less than three seconds derick-incisional area and lesser digits, left foot Neurological: Protective sensation with deficit to light touch, left foot Dermatologic: Dressing clean and intact. No strikethrough. Skin well coapted with sutures in place. No evidence of the dehiscence Erythema and edema present consistent with post op course. No evidence of CRPS. Good perfusion to flap with no evidence of ischemic changes Musculoskeletal: Palpatory tenderness minimally present upon exam REVIEW OF LABORATORY, PATHOLOGY, AND RADIOLOGY DATA: Lab results: Lab Results Component Value Date WBC 8.72 12/11/2023 RBC 3.82 (L) 12/11/2023 HGB 10.6 (L) 12/11/2023 HCT 32.4 (L) 12/11/2023 PLT 400 12/11/2023 Lab Results Component Value Date NA 136 12/11/2023 K 4.1 12/11/2023 CHLORIDE 100 12/11/2023 CO2 25 12/11/2023 GLU 178 (H) 12/11/2023 UN 9 12/11/2023 CR 0.92 12/11/2023 CA 9.0 12/11/2023 Lab Results Component Value Date/Time APTT 32.9 11/10/2023 1431 Lab Results Component Value Date/Time HGBA1C 8.5 (H) 12/08/2023 1647 Primary care physician: No primary care provider on file. Imaging: XR FOOT LEFT 3 V AP/OBL/LAT* (12/10/2023 13:34) I personally interpreted these radiographs. They demonstrate stable postoperative changes immediately status post partial first metatarsal amputation HBO ANGIOGRAPHY EXTREMITY UNILATERAL (12/09/2023 08:57) Reviewed radiology report and independently reviewed by myself. Adequate perfusion noted to all areas of the incision sites with exception of the incision line itself and the wound packing material. HBO TCO2 MEASUREMENT COMPLETE (12/09/2023 10:25) Reviewed radiology report and independently reviewed by myself. All measurements indicate adequate to normal wound healing capability with appropriate response to normal Erika oxygen. Ana M Arnada DPM, 12/11/2023 7:10 AM Surgery Discharge Milestones (Inpatient Primary Team only): FACULTY NOTE TP note (GC): Resident only post op check. I discussed with the resident and agree with the resident???s findings and plan documented in the resident???s note. Any revisions by me are documented. Suzy Patino DPM, 12/13/2023 8:47 AM * Igro Glover MD - 12/10/2023 2:18 PM CDT MEDICINE PROGRESS NOTE - STAFF Stephanie Low : 1980 Sex: male PATIENT SUMMARY: 43 y/o male with PMH significant for recent left hallux amputation, recent demar's gangrene, DM2, schizophrenia, tobacco use disorder admitted on 12/07/2023 with left metatarsal head osteomyelitis now S/P I&D w/ resection 12/07 and repeat I&D 12/09. ASSESSMENT AND PLAN BY PROBLEM: Acute osteomyelitis of the left 1st metatarsal head with Cellulitis s/p I&D with resection 12/08/2023 Recent left hallux amputation 11/17/2023 Hx of right TMA: Was following up in Podiatry Clinic for post-op check and they had concern for osteo. XR also with concern for osteo of the 1st metatarsal head. Podiatry consulted and now s/p OR x2 with sterile surgical dressing in place. MRSA in wound and tissue cultures - NWB to LLE - Podiatry following - Consult ID - Continue vanc/zosyn - Tylenol and oxycodone for pain - PT consult - CBC, BMP in AM DM2: A1c 6.8 in 07/2023. On glargine 30 units daily and lispro 6 units TID with meals. - Increase glargine to 30 units daily tomorrow - Continue aspart 2 unit/carb + medium dose sliding scale - Consistent carb diet Acute Kidney Injury, resolved: Baseline creat ~1, but had been elevated as high as 3.21 in the setting of recent Demar's gangrene. Creat continues to trend down from this and is near baseline. 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 Paranoid schizophrenia HILL: On prazosin, escitalopram and monthly paliperidone injections. Will continue these. Next due for paliperidone injection 12/12 - discussed with PharmD. HTN: Continue EXHAUST AND MUFFLER FITTER amlodipine. Hyperlipidemia: Continue EXHAUST AND MUFFLER FITTER rosuvastatin. Tobacco use disorder: Continue NRT. Hx of TBI. FEN: Regular consistent carb diet. Code status: Full code. VTE prophylaxis: VTE prophylaxis with lovenox to start 12/10. Lines: No central line. No mujica. Discharge planning: Discharged to [facility] on 11/24 after admission for Demar's gangrene, possible return there tomorrow if able SUBJECTIVE: Doing well overall. Hungry after OR. No significant pain. No fevers, chills. OBJECTIVE: Vital Signs: BP 133/72 (Cuff Location: Right Arm) Pulse 86 Temp 36.1 ??C (96.9 ??F) (Axillary) Resp 20 Ht 1.803 m (5' 11) Wt (!) 139.9 kg (308 lb 6.8 oz) SpO2 95% BMI 43.02 kg/m?? General appearance: Alert, cooperative and in no distress. Pulmonary: CTAB. Cardiovascular Heart: Auscultated on the right, RRR. Gastrointestinal Abdominal: Soft with active bowel sounds. Musculoskeletal: Extremities: Left foot TMA. Large splint and dressing to RLE. Psychiatric: Speech normal. Affect appropriate. Skin: Duskiness to right foot. INDEPENDENT INTERPRETATION OF LABORATORY, PATHOLOGY, AND RADIOLOGY DATA: Lab results: Reviewed BG 194 Creat 0.92 Igor Glover MD, 12/10/2023 2:18 PM Page via takokat * Denise Esteves RN - 12/10/2023 11:57 AM CDT Clinical Coordinator Note: 12/10/23 1156 Rapid Rounds Attendance Physician;Charge nurse;automotive parts manager;hoe worker;Bedside nurse Expected Discharge Disposition SNF Today we still await: Clinical stability;Procedure (Comment) (RTOR today 12/09, Surgery consult in place, ID consult in place) Patient's current status, plan of care, current issues and progress towards meeting discharge criteria were reviewed and discussed with interdisciplinary team members present. Patient remains medically appropriate for hospitalization. Clinical Coordinator will continue to follow monitoring patient's progress and assist with discharge planning. Please notify Clinical Coordinator (noted in Treatment Team) with any concerns or barriers to discharge. Denise Esteves Inpatient Clinical Coordinator [facility] Office: [phone] * Suzy Patino DPM - 12/10/2023 8:42 AM CDT Images from the original note were not included. Podiatric Surgery Inpatient Progress Note - PGY-3 Zenalaurie Shahidzena : 1980 Sex: male Patient Summary: 43 y/o male with PMH significant for recent left hallux amputation, recent demar's gangrene, DM2, schizophrenia, tobacco use disorder admitted on 12/07/2023 with left metatarsal head osteomyelitis now S/P I&D w/ resection 12/07. ASSESSMENT: Immediately s/p partial 1st metatarsal amputation, I&D, left (DOS 12/10/23, Dr Patino) s/p partial first ray amputation with irrigation and debridement down to and including the level ofbone (DOS: 12/08/23; Dr. Palomo) --Indications: New Acute Osteomyelitis of first metatarsal head with cellulitis, worsening Incisiondehiscence and exposed bone due to noncompliance, left --No showed outpatient appointments and walked postoperatively resulting in incision dehiscence s/p Left hallux amputation (DOS 11/17/2023 Dr. Palomo) --Indication: gangrenous hallux, possible stable gas forming infection, right Daily Tobacco Use --AUS completed 11/16 with no additional workup indicated Controlled T2DM with peripheral neuropathy --A1C: 8.5% 12/08/2023, up from 6.8% 07/2023 Right TMA Paranoid Schizophrenia History of TBI --Patient is own [facility] RECOMMENDATIONS: 1. Dressing: Dressed in OR with Betadine soaked Adaptic, 4 x 4 gauze, Archana, cast padding, well-padded posterior splint. Okay for nursing to reinforce. Podiatry to manage dressing changes at this time. Patient expected to leave dressings clean, dry, and intact until scheduled follow up. 2. Activity: Nonweightbearing in posterior splint, left lower extremity. Recommend PT/OT consult. 3. Antibiotics: Recommend ID consult, ID involved during previous admission. Intraoperative cultures taken 12/07 and 12/09. Bone felt firm/hard during osteotomy. 4. Vascular: Continue HBO while inpatient and outpatient if able. HBO should not be barrier to discharge so if facility is unable to accommodate transport, okay to discontinue. AUS 11/17/2023 patent. TCO2 and Dulce obtained, results indicate good probability for wound healing. 5. Surgery: No plans to RTOR this admission. S/P above procedures. 6. Imaging: No additional imaging needed at this time. XR completed 12/06 with new osteomyelitis of first metatarsal head without gas. 7. Labs: Continue daily labs for inflammatory markers 8. Follow-up: Patient is okay to discharge tomorrow after dressing change. Patient is scheduled forfollow up 12/17/2023 1:45 PM (Arrive by 1:35 PM). We will continue to follow while admitted. Please page pavilion cutter resident with questions. Patient was discussed with pavilion cutter staff Interval history: Patient seen resting comfortably in PACU. NIAD No Known Drug Allergies REVIEW OF SYSTEMS: ALL other ROS negative except for those noted in HPI. PHYSICAL EXAMINATIONS: Temp (24hrs), Av.6 ??C (97.8 ??F), Min:36.2 ??C (97.2 ??F), Max:36.9 ??C (98.4 ??F) General: recovering from surgery, resting comfortably in PACU RIMA: Dressing to LLE c/d/i, no strike-through noted, vascular status intact to extremity in OR s/p procedure, able to wiggle toes REVIEW OF LABORATORY, PATHOLOGY, AND RADIOLOGY DATA: Lab results: Lab Results Component Value Date WBC 8.35 12/10/2023 RBC 3.81 (L) 12/10/2023 HGB 10.3 (L) 12/10/2023 HCT 32.5 (L) 12/10/2023 PLT 377 12/10/2023 Lab Results Component Value Date NA 137 12/10/2023 K 4.2 12/10/2023 CHLORIDE 101 12/10/2023 CO2 26 12/10/2023 GLU 204 (H) 12/10/2023 UN 11 12/10/2023 CR 0.92 12/10/2023 CA 9.0 12/10/2023 Lab Results Component Value Date/Time APTT 32.9 11/10/2023 1431 Lab Results Component Value Date/Time HGBA1C 8.5 (H) 12/08/2023 1647 Primary care physician: No primary care provider on file. HBO ANGIOGRAPHY EXTREMITY UNILATERAL (12/09/2023 08:57) Reviewed radiology report and independently reviewed by myself. Adequate perfusion noted to all areas of the incision sites with exception of the incision line itself and the wound packing material. HBO TCO2 MEASUREMENT COMPLETE (12/09/2023 10:25) Reviewed radiology report and independently reviewed by myself. All measurements indicate adequate to normal wound healing capability with appropriate response to normal Erika oxygen. Samina Singletary DPM, 12/10/2023 11:50 AM FACULTY NOTE TP note (PETRONA): I saw and evaluated the patient. I discussed with the resident and agree with the resident???s findings and plan documented in the resident???s note. Any revisions by me are documented. Suzy Patino DPM, 12/10/2023 2:11 PM * Igor Glover MD - 12/09/2023 10:33 PM CDT MEDICINE PROGRESS NOTE - STAFF Stephanie Low : 1980 Sex: male PATIENT SUMMARY: 43 y/o male with PMH significant for recent left hallux amputation, recent demar's gangrene, DM2, schizophrenia, tobacco use disorder admitted on 12/07/2023 with left metatarsal head osteomyelitis now S/P I&D w/ resection 12/07. ASSESSMENT AND PLAN BY PROBLEM: Acute osteomyelitis of the left 1st metatarsal head with cellulitis s/p I&D with resection 12/08/2023 Recent left hallux amputation 11/17/2023 Hx of right TMA: Was following up in Podiatry Clinic for post-op check and they had concern for osteo. XR also with concern for osteo of the 1st metatarsal head. Podiatry consulted and now s/p OR. Wound packed open. - NWB to LLE - Podiatry consult appreciated, they are planning RTOR tomorrow - Follow-up cultures - Continue vanc/zosyn - Tylenol and oxycodone for pain - PT consult - CBC, BMP in AM - NPO midnight DM2: A1c 6.8 in 07/2023. On glargine 30 units daily and lispro 6 units TID with meals. - Increase glargine to 25 units daily - Continue aspart 1 unit/carb + low dose sliding scale - Consistent carb diet Acute Kidney Injury, improving: Baseline creat ~1, but had been elevated as high as 3.21 in the setting of recent Demar's gangrene. Creat continues to trend down from this and is near baseline. 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 Paranoid schizophrenia HILL: On prazosin, escitalopram and monthly paliperidone injections. Will continue these. Next due for paliperidone injection 12/12 - discussed with PharmD. HTN: Continue EXHAUST AND MUFFLER FITTER amlodipine. Hyperlipidemia: Continue EXHAUST AND MUFFLER FITTER rosuvastatin. Tobacco use disorder: Continue NRT. Hx of TBI. FEN: Regular consistent carb diet. Code status: Full code. VTE prophylaxis: VTE prophylaxis with hep to start 12/08. Lines: No central line. No mujica. Discharge planning: Discharged to [facility] on 11/24 after admission for Demar's gangrene. I presume he will return there at discharge, but will need SW/CC to confirm he has a bed hold. SUBJECTIVE: Feeling pretty good today. + BM. Appetite good. Pain minimal. No SOB, chest pain, fevers, chills. OBJECTIVE: Vital Signs: General appearance: Alert, cooperative and in no distress. Pulmonary: CTAB. Cardiovascular Heart: Auscultated on the right, RRR. Gastrointestinal Abdominal: Soft with active bowel sounds. Musculoskeletal: Extremities: Left foot TMA. Large splint and dressing to RLE. Psychiatric: Speech normal. Affect appropriate. Skin: Duskiness to right foot. INDEPENDENT INTERPRETATION OF LABORATORY, PATHOLOGY, AND RADIOLOGY DATA: Lab results: Reviewed Igor Glover MD, 12/09/2023 10:33 PM Page via takokat * David Mancuso, PharmD - 12/09/2023 3:54 PM CDT Images from the original note were not included. PHARMACY VANCOMYCIN NOTE Stephanie Low : 1980 Sex: male Assessment: Interpretation of level timing: Level was drawn 11 hours from previous dose, which is appropriate. Interpretation of trough level and current regimen: The level drawn suggests that the current regimen is providing a trough concentration higher than desired. Plan: 1. Regimen: Vancomycin 1500 mg Q12H Pt received 3000 mg x1 and 500 mg x1 within 24h prior to starting 2000 mg Q12h regimen, but given levels above goal prior to 3rd dose, will decrease dose to 1500 mg Q12h 2. Next level planned: Will obtain next level 12/10 @1700 3. Continue to monitor urine output/Scr. 4. PharmD will follow, please page if you have questions. Indication for vancomycin therapy: osteomyelitis Current vancomycin regimen: 2000 mg Q12H Dose based on: actual BW Current estimated CrCl: Estimated Creatinine Clearance: 136.1 mL/min (by C-G formula based on SCr of 0.98 mg/dL). Renal function appears: stable Recent Creatinine: Lab Results Component Value Date CR 0.98 12/09/2023 CR 0.98 12/08/2023 CR 1.26 (H) 12/07/2023 Desired vancomycin trough: 15 - 20 mg/L Level: Lab Results Component Value Date VANCOMYCIN 22.0 12/09/2023 (most recent) David Mancuso PharmD 12/09/2023 20:29 * Emily Hannah RN - 12/09/2023 1:48 PM CDTSummary: Discharge Planning Care Coordination Assessment Patient Name: Stephanie Low Date: 12/09/2023 Expected DC Date: 12/10/2023 Social Information Jigsawyer Used: None needed Decision Maker at Admission: Self Living Situation: [facility] (see comment) Patient Identified Support System: sister, significant other Services Receiving: Waivered services (see comment) Complex Medical Needs: Other (see comment) (wound care) Transportation Used for Discharge: stretcher Safety Concerns: None Behavioral Health Concerns: None Patient Family Goals Patient's Discharge Goal: back to [facility] Family's Discharge Goal: n/a Plan/Interventions Expected Discharge Disposition: Residential Facility Patient Information Verification Verified demographic information, including SSN, Next of Kin, and Guardianship: Yes Verified PCP: Yes If post-acute placement is needed, have vaccination status needs been addressed?: Not applicable Risks for Readmission: None Summary of pertinent information: Patient admitted from [facility] with concern for a left great to osteomyelitis that was resected 12/07. 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 Have a call out to [facility] to confirm bed hold ([phone]). Spoke to staff at his [facility] ([place] [phone]) to also update and confirm that he can return there when ultimately. Patient currently has started on HBO, this may be problematic with returning to [facility]. Emily Hannah RN, 12/09/2023 1:49 PM * Farida Rosenthal DPM - 12/09/2023 6:23 AM CDT Images from the original note were not included. Podiatric Surgery Inpatient Progress Note - PGY-3 Stephanie Low : 1980 Sex: male Patient Summary: 43 y.o. male with PMH type 2 diabetes mellitus, daily tobacco use, paranoid schizophrenia, history of TBI admitted on 12/07/2023 with left foot wound. I was asked to see this patient by ED staff regarding left foot wound. ASSESSMENT: 1 day s/p partial first ray amputation with irrigation and debridement down to and including the level of bone (DOS: 12/08/23; Dr. Palomo) Indications: New Acute Osteomyelitis of first metatarsal head, left Worsening Incision dehiscence due to noncompliance, left- wound with exposed bone New Cellulitis to level of 1st MPJ, left --No showed outpatient appointments and walked postoperatively resulting in incision dehiscence s/p Left hallux amputation (DOS 11/17/2023 Dr. Palomo) --Indication: gangrenous hallux, possible stable gas forming infection, right --Gas identified on outside CT 11/09 Daily Tobacco Use --AUS completed 11/16 with no additional workup indicated Controlled T2DM with peripheral neuropathy --A1C: 8.5% 12/08/2023, up from 6.8% 07/2023 Right TMA Paranoid Schizophrenia History of TBI --Patient is own [facility] RECOMMENDATIONS: 1. Dressing: Dressed with Vashe soaked half-inch packing, Betadine soaked Adaptic, 4 x 4 gauze, Archana, cast padding, well-padded posterior splint, left foot. Okay for nursing to reinforce. Podiatry to manage dressing changes at this time. 2. Activity: Nonweightbearing in posterior splint, left lower extremity 3. Antibiotics: Continue broad spectrum IV antibiotics, please tailor to intraoperative cultures from 12/08/2023 as a result, clinic soft tissue culture MRSA. 4. Vascular: No need for arterial ultrasound. Patient had AUS 11/17/2023. Now the patient is status post above procedure. HBO consult placed. T CO2 and Dulce obtained, results indicate good probabilityfor wound healing. 5. Surgery: Patient status post above procedure. Tomorrow 12/10/2023. Please medically optimize make n.p.o. at midnight. Plan will be for repeat irrigation and debridement with primary closure if woundenvironment is clean of infection and devitalized tissue. 6. Imaging: TCO2 and Dulce obtained. See below for details. No further imaging at this time. 7. Labs: Continue daily labs for inflammatory markers 8. Follow-up: Will continue to follow while inpatient Please page pavilion cutter resident with questions. Patient was discussed with pavilion cutter staff Interval history: Patient seen and evaluated during morning rounds. States that he is doing quite well since surgery.Still having some pain but reports that he expected to have pain after surgery. No overt concerns voiced at this time other than anxious about having more surgery to have his wound closed. No Known Drug Allergies REVIEW OF SYSTEMS: ALL other ROS negative except for those noted in HPI. PHYSICAL EXAMINATIONS: Temp (24hrs), Av.1 ??C (98.7 ??F), Min:35.7 ??C (96.3 ??F), Max:38.2 ??C (100.8 ??F) General: No apparent distress Psych: Alert and oriented x3 Respiratory: Breathing is non-labored, regular rate and rhythm Lymph: No LE lymphadenopathy Vascular: Palpable pulses noted, left foot Capillary filling time less than three seconds derick-incisional area and lesser digits, left foot Neurological: Protective sensation with deficit to light touch, left foot Dermatologic: Dressing clean and intact. No strikethrough. Retention sutures in place with open wound packing. Erythema and edema present consistent with post op course. No evidence of CRPS. Musculoskeletal: Palpatory tenderness minimally present upon exam REVIEW OF LABORATORY, PATHOLOGY, AND RADIOLOGY DATA: Lab results: Lab Results Component Value Date WBC 10.39 (H) 12/08/2023 RBC 3.59 (L) 12/08/2023 HGB 9.8 (L) 12/08/2023 HCT 30.8 (L) 12/08/2023 PLT 314 12/08/2023 Lab Results Component Value Date NA 134 (L) 12/08/2023 K 4.0 12/08/2023 CHLORIDE 98 12/08/2023 CO2 24 12/08/2023 GLU 247 (H) 12/08/2023 UN 16 12/08/2023 CR 0.98 12/08/2023 CA 8.7 12/08/2023 Lab Results Component Value Date/Time APTT 32.9 11/10/2023 1431 Lab Results Component Value Date/Time HGBA1C 8.5 (H) 12/08/2023 1647 Primary care physician: No primary care provider on file. HBO ANGIOGRAPHY EXTREMITY UNILATERAL (12/09/2023 08:57) Reviewed radiology report and independently reviewed by myself. Adequate perfusion noted to all areas of the incision sites with exception of the incision line itself and the wound packing material. HBO TCO2 MEASUREMENT COMPLETE (12/09/2023 10:25) Reviewed radiology report and independently reviewed by myself. All measurements indicate adequate to normal wound healing capability with appropriate response to normal Erika oxygen. Niraj Lewis DPM, 12/09/2023 12:51 PM FACULTY WITH RESIDENT: I discussed with the resident on the date of the resident's note and agree with the resident's findings and plan documented in the resident's note . Any revisions by me are documented. Farida Rosenthal DPM, 12/09/2023 1:51 PM * Che Palomo DPM - 12/08/2023 5:45 PM CDT Images from the original note were not included. Podiatric Surgery Inpatient Progress Note - PGY-3 Eugeneeduarda Shahidzena : 1980 Sex: male Patient Summary: 43 y.o. male with PMH type 2 diabetes mellitus, daily tobacco use, paranoid schizophrenia, history of TBI admitted on 12/07/2023 with left foot wound. I was asked to see this patient by ED staff regarding left foot wound. ASSESSMENT: Immediately s/p partial first ray amputation with irrigation and debridement down to and including the level of bone (DOS: 12/08/23; Dr. Palomo) Indications: New Acute Osteomyelitis of first metatarsal head, left Worsening Incision dehiscence due to noncompliance, left- wound with exposed bone New Cellulitis to level of 1st MPJ, left --No showed outpatient appointments and walked postoperatively resulting in incision dehiscence s/p Left hallux amputation (DOS 11/17/2023 Dr. Palomo) --Indication: gangrenous hallux, possible stable gas forming infection, right --Gas identified on outside CT 11/09 Daily Tobacco Use --AUS completed 11/16 with no additional workup indicated Controlled T2DM with peripheral neuropathy --A1C: 8.5% 12/08/2023, up from 6.8% 07/2023 Right TMA Paranoid Schizophrenia History of TBI --Patient is own [facility] RECOMMENDATIONS: 1. Dressing: Dressed in operating room with Vashe soaked half-inch packing, Betadine soaked Adaptic, 4 x 4 gauze, Archana, cast padding, well-padded posterior splint, left foot. Okay for nursing to reinforce. Podiatry to manage dressing changes at this time. 2. Activity: Nonweightbearing in posterior splint, left lower extremity 3. Antibiotics: Continue broad spectrum IV antibiotics, please tailor to intraoperative cultures from 12/08/2023 as a result, clinic soft tissue culture MRSA. 4. Vascular: No need for arterial ultrasound. Patient had AUS 11/17/2023. Now the patient is status post above procedure. New order for HBO consult and TCO to his Dulce have been placed. 5. Surgery: Patient status post above procedure. Plan to return to OR in the coming days. Will see and evaluate tomorrow and update surgical plan. But plan will be for repeat irrigation and debridement with primary closure if wound environment is clean of infection and devitalized tissue. 6. Imaging: Orders placed for Dulce, contacted for scheduling. 7. Labs: Continue daily labs for inflammatory markers 8. Follow-up: Will continue to follow while inpatient Please page pavilion cutter resident with questions. Patient was seen with pavilion cutter staff, Dr. Palomo Interval history: Patient is immediately status post above procedure, resting comfortably in PACU. No questions or concerns this time. No Known Drug Allergies REVIEW OF SYSTEMS: ALL other ROS negative except for those noted in HPI. PHYSICAL EXAMINATIONS: Temp (24hrs), Av.2 ??C (97.2 ??F), Min:35.7 ??C (96.3 ??F), Max:36.7 ??C (98.1 ??F) General: Recovering from surgery, resting comfortably in PACU RIMA: Dressing to left foot c/d/i, no strike-through noted, vascular status intact to extremity in OR s/pprocedure REVIEW OF LABORATORY, PATHOLOGY, AND RADIOLOGY DATA: Lab results: Lab Results Component Value Date WBC 10.39 (H) 12/08/2023 RBC 3.59 (L) 12/08/2023 HGB 9.8 (L) 12/08/2023 HCT 30.8 (L) 12/08/2023 PLT 314 12/08/2023 Lab Results Component Value Date NA 134 (L) 12/08/2023 K 4.0 12/08/2023 CHLORIDE 98 12/08/2023 CO2 24 12/08/2023 GLU 247 (H) 12/08/2023 UN 16 12/08/2023 CR 0.98 12/08/2023 CA 8.7 12/08/2023 Lab Results Component Value Date/Time APTT 32.9 11/10/2023 1431 No results found for: HGBA1C Primary care physician: No primary care provider on file. Niraj Lewis DPM, 12/08/2023 5:45 PM PODIATRIC SURGERY FACULTY NOTE (GC) I saw and evaluated the patient today, 12/08/2023. I discussed with the resident and agree with the resident's findings and plan documented in the resident's note. Any revisions by me are documented in the note. Che Palomo DPM, 12/08/2023 8:33 PM * Nilda Castro RN - 12/08/2023 2:46 PM CDT NURSING ADMISSION NOTE Stephanie Low : 1980 SEX: male D: Stephanie Low was admitted to .384. from PACU at 1446 for Other acute osteomyelitis of leftfoot ([facility]) . Patient: alert, oriented to person, place and time. Skin: wound in groin Pain: burning. BP (!) 137/124 Pulse 73 Temp 36.3 ??C (97.3 ??F) (Temporal) Resp 14 Ht 1.803 m (5' 11) SpO2 94% BMI 43.95 kg/m?? A: Pt oriented to unit, room, and use of call light. Routine admit screens started. Telemetry not ordered. R:PATIENT AND/OR FAMILY: patient was able to verbalize understanding of unit policy and plan of care. Questions answered. Learning considerations: Cognitive loss (per pt report). P: Implement orders as received. Will continue to monitor, follow plan of care, and notify providerand/or team as needed. Nilda Castro RN, 12/08/2023 2:46 PM Patient Belonging 12/08/2023 1400 Patient or family informed of Patient Valuables and Belongings Policy (#[id number]): Policy reviewed - patient/family/designee has indicated that he/she will assume responsibility of patient valuables Medications brought in by patient?: None Nilda Castro RN, 12/08/2023 2:47 PM Upon admission, a Four Eyes Skin Inspection was completed with [facility], Obdulia(Name & Title). Skin injuries were present, and skin breakdown needing further assessment will be added to Avatar. Will implement interventions from Skin INJURY Bundle as appropriate. * Suzy Shafer PA-C - 12/08/2023 8:34 AM CDT MEDICINE PROGRESS NOTE - FADIA Low : 1980 Sex: male PATIENT SUMMARY: 43 y/o male with PMH significant for recent left hallux amputation, recent demar's gangrene, DM2, schizophrenia, tobacco use disorder admitted on 12/07/2023 with left metatarsal head osteomyelitis. ASSESSMENT AND PLAN BY PROBLEM: Acute osteomyelitis of the left 1st metatarsal head with cellulitiss/p I&D with resection 12/08/2023 Recent left hallux amputation 11/17/2023 Hx of right TMA: Was following up in Podiatry Clinic for post-op check and they had concern for osteo. XR also with concern for osteo of the 1st metatarsal head. Podiatry consulted and now s/p OR. Wound packed open with plan to RTOR later in the week. - NWB to LLE - Podiatry consult appreciated, they are planning RTOR later this week (probably over the weekend per my discussion with them) - Follow-up cultures - Continue vanc/zosyn - Tylenol and oxycodone for pain - PT consult - CBC, BMP, CRP, ESR this morning DM2: A1c 6.8 in 07/2023. On glargine 30 units daily and lispro 6 units TID with meals. - Increase glargine to 25 units daily starting 12/08 (received 30 units in OR 12/07) - Continue aspart 1 unit/carb + low dose sliding scale - Consistent carb diet Acute Kidney Injury, improving: Baseline creat ~1, but had been elevated as high as 3.21 in the setting of recent Demar's gangrene. Creat continues to trend down from this and is near baseline. - BMP this morning Recent Demar's gangrene s/p I&D 11/10/2023 and 11/11/2023: Due for Surgery Clinic follow-up 12/23. - Surgery consult in a.m. 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 Paranoid schizophrenia HILL: On prazosin, escitalopram and monthly paliperidone injections. Will continue these. Next due for paliperidone injection 12/12 - discussed with PharmD. HTN: Continue EXHAUST AND MUFFLER FITTER amlodipine. Hyperlipidemia: Continue EXHAUST AND MUFFLER FITTER rosuvastatin. Tobacco use disorder: Continue NRT. Hx of TBI. FEN: Regular consistent carb diet. Code status: Full code. VTE prophylaxis: VTE prophylaxis with hep to start 12/08. Lines: No central line. No mujica. Discharge planning: Discharged to [facility] in [place] on 11/24 after admission for Demar's gangrene. I presume he will return there at discharge, but will need SW/CC to confirm he has a bed hold. SUBJECTIVE: I saw Matt in PACU. He is doing ok, says he's not sure how surgery went. I told him I think the plan was for another surgery later in the week, and that we are working on getting him something to eat. OBJECTIVE: Vital Signs: Patient Vitals for the past 24 hrs: BP Temp Temp src Pulse Resp SpO2 07/31/24 0830 -- (P) 36.3 ??C (97.3 ??F) (P) TEMPORAL -- -- -- 12/08/23 0722 -- 36.7 ??C (98.1 ??F) TEMPORAL -- -- -- 12/08/23 0618 157/81 -- -- 61 14 96 % 12/08/23 0400 125/79 -- -- 70 14 (!) 92 % 12/08/23 0036 148/78 -- -- 82 16 95 % 12/07/23 2222 141/72 -- -- 82 -- 94 % 12/07/23 2020 185/93 -- -- 83 16 94 % 12/07/23 1829 167/90 -- -- 88 16 96 % 12/07/23 1555 141/92 37.2 ??C (99 ??F) Oral 89 16 96 % Temp (24hrs), Av.7 ??C (98.1 ??F), Min:36.3 ??C (97.3 ??F), Max:37.2 ??C (99 ??F) General appearance: Alert, cooperative and in no distress. Pulmonary: CTAB. Cardiovascular Heart: Auscultated on the right, RRR. Gastrointestinal Abdominal: Soft with active bowel sounds. Musculoskeletal: Extremities: Left foot TMA. Large splint and dressing to RLE. Psychiatric: Speech normal. Affect appropriate. Skin: Duskiness to right foot. INDEPENDENT INTERPRETATION OF LABORATORY, PATHOLOGY, AND RADIOLOGY DATA: Lab results: Lab Results Component Value Date/Time WBC 9.80 12/07/2023 1605 RBC 4.08 (L) 12/07/2023 1605 HGB 11.2 (L) 12/07/2023 1605 HCT 34.7 (L) 12/07/2023 1605 PLT 324 12/07/2023 1605 MCV 85.0 12/07/2023 1605 Lab Results Component Value Date/Time NA 139 12/07/2023 1605 K 4.5 12/07/2023 1605 CHLORIDE 97 12/07/2023 1605 CO2 24 11/23/2023 0831 GLU 284 (H) 12/07/2023 1605 UN 20 11/23/2023 0831 CR 1.26 (H) 12/07/2023 1605 CA 8.5 (L) 11/23/2023 0831 MEDS: Current Facility-Administered Medications Medication Dose Route Frequency Provider Last Rate Last Admin acetaminophen (TYLENOL) tablet 650 mg 650 mg Oral q6h prn Mirta Urena MD escitalopram (LEXAPRO) tablet 20 mg 20 mg Oral hs Mirta Urena MD traZODone (DESYREL) tablet 50 mg 50 mg Oral hs Mirta Urena MD ondansetron (ZOFRAN) tablet 4 mg 4 mg Oral q6h prn Mirta Urena MD loratadine (CLARITIN) tablet 10 mg 10 mg Oral daily Mirta Urena MD rosuvastatin (CRESTOR) tablet 10 mg 10 mg Oral hs Mirta Urena MD prazosin (MINIPRESS) capsule 1 mg 1 mg Oral hs Mirta Urena MD amLODIPine (NORVASC) tablet 10 mg 10 mg Oral daily Mirta Urena MD nicotine (NICOTROL) 14 mg/ 24hr daily 1 patch 1 patch Transdermal daily Mirta Urena MD nicotine polacrilex (NICORELIEF) gum 2 mg 2 mg Gum q1h prn Mirta Urena MD insulin GLARGINE (LANTUS) 15 UNITS injection vial 15 UNITS Subcutaneous q24h Mirta Urena MD insulin ASPART (NovoLOG) FlexPen Subcutaneous tid AC Mirta Urena MD insulin ASPART (NovoLOG) FlexPen Subcutaneous hs mr x1 Mirta Urena MD VTE prophylaxis contraindicated Does not apply protocol Mirta Urena MD vancomycin (VANCOCIN) 2,750 mg in NaCl 0.9% IVPB 20 mg/kg (Order-Specific) Intravenous q12h Mirta Urena MD piperacillin-tazobactam (ZOSYN) 4.5 g in NaCl 0.9% IVPB 4.5 g Intravenous q6h Mirta Urena MD fentaNYL (SUBLIMAZE) 100 mcg/2mL injection 50 mcg 50 mcg IV Push pacu prn q5min Carly Jordan MD HYDROmorphone PF (DILAUDID) 1 mg/mL injection 0.4 mg 0.4 mg IV Push pacu prn q5min Carly Jordan MD ondansetron (ZOFRAN) 4 mg/2 mL injection 4 mg 4 mg IV Push pacu prn q5min Carly Jordan MD Or ondansetron (ZOFRAN ODT) disintegrating tablet 4 mg 4 mg Oral pacu prn q5min Carly Jordan MD dexamethasone (DECADRON) 20 mg/ 5mL injection 4 mg 4 mg IV Push pacu prn once may repeat Carly Jordan MD dextrose 50% (25 g/50 mL) solution 25 mL 25 mL IV Push pacu prn once Dontae Higgins MD insulin GLARGINE (LANTUS) 30 UNITS injection vial 30 UNITS Subcutaneous once Dontae Higgins MD piperacillin-tazobactam (ZOSYN) 4.5 g in NaCl 0.9% IVPB 4.5 g Intravenous q6h Jf Santacruz, KennediD Infusion completed at 12/08/23 0240 nicotine (NICOTROL) 14 mg/ 24hr daily 1 patch 1 patch Transdermal daily Martha Mendez MD 1 patch at 12/07/23 2033 Facility-Administered Medications Ordered in Other Encounters Medication Dose Route Frequency Provider Last Rate Last Admin propofol 10 mg/mL Infusion Intravenous periop continuous Rex Valdes APRN, CRNA Stopped at 12/08/23 0816 insulin GLARGINE (LANTUS) injection vial Subcutaneous intra-op prn once may repeat Rex Valdes APRN, CRNA 30 UNITS at 12/08/23 0729 lactated ringers infusion Intravenous periop continuous Rex Valdes APRN, CRNA New Bag at 12/08/23 0728 vancomycin (VANCOCIN) 1,500 mg in NaCl 0.9% 500 mL IVPB Intravenous periop continuous Mk Valdes APRN, CRNA 2,500 mg at 12/08/23 0743 I have spent 50 minutes with this patient today in which greater than 50% of this time was spent incounseling/coordination of care regarding plan of care, antibiotics, RTOR, discussion with Podiatry. This time is spent independent of any time spent with/by the MD. I have independently reviewed radiology images and labs. Suzy Shafer PA-C, 12/08/2023 8:34 AM Page via [employer] documented in this encounter H&P Notes * Mirta Urena MD - 12/07/2023 10:44 PM CDT MEDICINE HISTORY AND PHYSICAL - Staff Stephanie Low : 1980 Sex: male Patient Summary: Stephanie Low is a 43 y.o. 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 Podiatry following, plan for possible OR in AM. Assessment and Plan: #L first metatarsal head osteomyelitis with surrounding SSTI In setting of poor post-op wound care, XR concerning for osteo of L first metatarsal head. Podiatryplanning for debridement this admission. -Podiatry consulted, appreciate recs -Continue IV vancomycin, zosyn -F/up cultures currently in process -NPO at IL, holding VTE ppx -AM BMP, CBC, CRP, ESR Chronic / Stable / Resolved / Ruled Out #T2DM: A1c 6.8% 07/2023. Reduce EXHAUST AND MUFFLER FITTER lantus to 15 U while NPO, Novolog 1U/CHO + LDSSI. Rechecking A1c. #HTN: EXHAUST AND MUFFLER FITTER amlodipine 10 mg daily #HLD: EXHAUST AND MUFFLER FITTER statin #Paranoid schizophrenia: EXHAUST AND MUFFLER FITTER prazosin #HILL: EXHAUST AND MUFFLER FITTER escitalopram 20 mg daily #Tobacco use disorder: NRT ordered #Hx TBI #Hx R TMA #Sinus inversus History of Present Illness: Stephanie Low is a 43 y.o. male who presented initially to Podiatry Clinic on 12/07/2023 for post-op follow-up and was noted to have have worsening wound infection with XR concerning for osteomyelitis. In ED he remained HDS, and afebrile. Given vancomycin and zosyn. On my visit with Matt, he was minimally participatory in setting of being woken up, but denied fevers, chills, nausea, or pain to Lfoot. Links to update patient chart: Medical History, Surgical History, Family History, Psychosocial History, Medication List, Allergies, Code Status, LDA & Wounds Complete review of systems was performed - See HPI. All others negative. Objective: BP 141/72 (Cuff Location: Right Arm, Patient Position: Lying Down) Pulse 82 Temp 37.2 ??C (99 ??F) (Oral) Resp 16 SpO2 94% General: in no apparent distress HEENT: no scleral icterus, MMM Pulmonary: lungs CTAB, no wheezing, breathing comfortably on room air Cardiovascular: RRR, normal S1/S2, no murmurs MSK: R TMA, L foot dressing c/d/i Psych: calm PCP: No primary care provider on file. Total time spent on this encounter, on the date of service, including pre-visit review of separately obtained history, [id number] interaction performing medically appropriate physical exam, patientcounseling/education, interpretation of diagnostic results, care coordination and documentation was55 minutes. Mirta Urena MD, 12/07/2023 10:45 PM documented in this encounter Procedure Notes * Carroll Espinoza RN - 12/09/2023 12:46 PM CDT Microangiography Study - Left foot Stephanie Low : 1980 Date of Service: 12/09/2023 Time of Service: 12:46 IV Site: Gauge: 18 G Location: R Arm Extremity Skin Temperature: 93.1 F Procedure: Fluorescence angiography Pt arrives to HBO suite in cart, pt placed on cart , dressings removed. Procedure explained. Study completed on left foot as ordered. Pt had no adverse reaction to 2.5 mL of IC-Green dye. After completion of study IV, saline locked and wound redressed with kerlix, 4x4, abd pad, gabriella bandage, and splint. Plan for patient to dispo to inpatient room after DULCE. documented in this encounter Consult Notes * Harry Randhawa CWON - 12/13/2023 8:53 AM CDT Images from the original note were not included. WO follow up: [facility] has made recommendations. WO will defer to surgery and sign off. Pt was at [facility] 11/09 to 11/24 for Demar's gangrene. Discharge Summary by 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 APRN, CNP (11/25/2023 07:37) Chart and media were reviewed by WOCN. The patient was not seen in person at this time. 11/23 The following wound treatment recommendations are based on chart review: 1. Remove old dressing and clean wound with Vashe and gauze 2. Apply Cavilon skin barrier to periwound skin 3. Lightly pack wound and any tunnels/undermining with Vashe damp Kerlix 4. Cover with ABDs and secure with minimal tape Change Daily or BID for heavy drainage Suggest surgery consult to assess surgical wound healing. Message sent to primary team. [facility] Nursing follow up: Appreciate the opportunity to consult on this patient, Wound Ostomy Continence Services will sign off at this time. Please place additional 'Wound Consult' if wanting further assessment for this patient. Staff to continue to follow skin injury bundle. Escalate concerns to WOCN through additional consult or to the provider when barriers are identified. WOCN available Wednesday through Wednesday on [employer] or [phone] [facility] Nursing attempts to see patients in person when possible, but will at times complete a chart/media review in order to recommend wound treatment in a timely manner. Please reconsult WO if wound condition changes or the current treatment is thought to be no longerappropriate. Harry Randhawa CWON, 12/13/2023 8:53 AM * Eusebio Perez, PharmD - 12/12/2023 10:53 AM CDTAssociated Order(s): DISCHARGE MED REC FINAL REVIEW BY PHARMACY PHARMACY DISCHARGE NOTE Stephanie Low : 1980 Sex: male Addendum: Changes to medications after discharge note initially completed - Insulin glargine increased to 35 units daily - Insulin aspart increased to 10 units three times daily with meals Pharmacy service was consulted for review of patient's discharge medications. Assessment: Pertinent points to note: -- New Linezolid for osteomyelitis treatment for total duration of 4 weeks through 01/06/24. I have reviewed the patient's medications for discharge and have discussed the necessary changes with the provider. Changes have been made and medication list updated and complete. Please page with any questions. Scott PharmD 12/12/2023 10:54 For questions regarding this note, please contact pharmacist on service at PharmD [facility] ([employer]) or [phone]. If no response within needed timeframe, please contact central pharmacy via phone at [phone]. Planned discharge medications are: Medication List Medications Indications acetaminophen 325 mg tablet Commonly known as: TYLENOL Take 3 tablets (975 mg) by mouth 3 times daily. Indications: Fever, Pain Indications: Fever, Pain amLODIPine 10 mg tablet Commonly known as: NORVASC Take 1 tablet (10 mg) by mouth daily. Indications: High Blood Pressure Disorder Indications: High Blood Pressure Disorder bisacodyl 10 mg suppository Commonly known as: DULCOLAX 1 suppository (10 mg) by Rectal route daily as needed for Constipation. Indications: Constipation Indications: Constipation chlorhexidine 0.12% solution Commonly known as: PERIDEX Swish and spit 15 mL by mouth daily. Indications: Gum Inflammation Indications: Gum Inflammation cyclobenzaprine 10 mg Commonly known as: FLEXERIL Take 1 tablet (10 mg) by mouth 3 times daily. Indications: Muscle Spasm Indications: Muscle Spasm docusate sodium 100 mg capsule Commonly known as: COLACE Take 1 capsule (100 mg) by mouth twice daily as needed for Constipation. escitalopram 20 mg tablet Commonly known as: LEXAPRO Take 1 tablet (20 mg) by mouth at bedtime. Indications: Generalized Anxiety Disorder Indications: Generalized Anxiety Disorder hydrOXYzine pamoate 25 mg capsule Commonly known as: VISTARIL Take 1-2 capsules (25-50 mg) by mouth every 6 hours as needed for Itching. Indications: Itching Indications: Itching insulin GLARGINE 100 units/mL injection vial Commonly known as: LANTUS Inject 35 UNITS subcutaneously every twenty-four hours. Indications: Type 2 Diabetes Indications: Type 2 Diabetes insulin LISPRO 100 UNIT/ML Kwikpen Commonly known as: HumaLOG KwikPen Inject 10 UNITS subcutaneously 3 times daily before meals. Invega Sustenna 156 MG/ML injection Generic drug: paliperidone palmitate ER Inject 1 mL (156 mg) into a muscle every month. Indications: Schizoaffective Disorder Indications: Schizoaffective Disorder linezolid 600 mg tablet Commonly known as: ZYVOX Take 1 tablet (600 mg) by mouth twice daily for 25 days. Indications: Infection of Foot in DiabeticPatient Indications: Infection of Foot in Diabetic Patient New loratadine 10 mg tablet Commonly known as: CLARITIN Take 1 tablet (10 mg) by mouth daily. Indications: Hayfever Indications: Hayfever milk of magnesia 400 mg/5 mL suspension Take 15 mL by mouth daily as needed for Constipation. Indications: Acid Indigestion Indications: Acid Indigestion nicotine 14 mg/ 24hr Patch 24 hr Commonly known as: NICOTROL Apply 1 patch to skin daily. Indications: Nicotine Addiction Indications: Nicotine Addiction nicotine polacrilex 2 mg gum Commonly known as: NICORELIEF 1 each (2 mg) by Gum route every 1 hour as needed for Nicotine Craving. Indications: Nicotine Addiction Indications: Nicotine Addiction ondansetron 4 mg Tabs Commonly known as: ZOFRAN Take 1 tablet (4 mg) by mouth every 6 hours as needed for Nausea/Vomiting. Indications: Nausea and Vomiting Indications: Nausea and Vomiting polyethylene glycol 3350 17 g Packet Commonly known as: MIRALAX;GLYCOLAX Take 17 g by mouth daily. Indications: ConstipationTake 1 capful to 17 gm zo mixed with full glass of water every day as directed. Indications: Constipation prazosin 1 mg Capsule Commonly known as: MINIPRESS Take 1 capsule (1 mg) by mouth at bedtime. Indications: High Blood Pressure Disorder Indications: High Blood Pressure Disorder rosuvastatin 10 mg tablet Commonly known as: CRESTOR Take 1 tablet (10 mg) by mouth at bedtime. Indications: Elevation of Both Cholesterol and Triglycerides in Blood Indications: Elevation of Both Cholesterol and Triglycerides in Blood sennosides 17.2 mg Tabs Commonly known as: SENOKOT Take 1 tablet (17.2 mg) by mouth twice daily. traZODone 50 mg tablet Commonly known as: DESYREL Take 1 tablet (50 mg) by mouth at bedtime. Indications: Trouble Sleeping Indications: Trouble Sleeping * Aretha Damon MD - 12/10/2023 3:54 PM CDTAssociated Order(s): CONSULT TO INFECTIOUS DISEASE ID NEW CONSULT NOTE Stephanie Low 1980 male [id number] REASON FOR CONSULT: I was asked to see Stephanie Low by Igor Glover regarding left foot osteomyelitis due to MRSA ASSESSMENT: Type II diabetes mellitus, last A1C 8.5% 12/08/23 MRSA left foot osteomyelitis S/p I&D on 12/08/23, path with acute osteomyelitis so repeat I&D performed 12/10/2312/07 cultures with MRSA, suceptibilities pending Necrotizing fascitis Improving after I&D x 2 and 7 days IV Ceftriaxone and flagyl (11/12-11/18/23) Discussion: Pt is known to our service, hx of MRSA and Staph lugdunensis osteomyelitis with defnitive resection and clear proximal margins on 11/17/23 and necrotizing fascitis/Demar's s/p I&D 11/11/23 and ceftriaxone and flagyl from 11/12-11/18/23. He now presents with fever from his facility, found to have acute osteomyelitis on pathology from the bone of the left foot on 12/08/23 intra-op, cultures growing MRSA, susceptibilities pending. Will plan for 2-6 weeks depending on path margins and in collaboration with podiatry. It's reasonable to continue IV Vancomycin monotherapy for now to target coverage for MRSA. RECOMMENDATIONS: - Continue IV vancomycin for now, goal 13-18 mg/dL - Stop piperacillin-tazobactam - Monitor pathology to ensure clear margins - Follow clinically and path to determine duration, 2 vs. 6 weeks depending on clinical course - Monitor BMP, CBC w/ diff, Vanco trough at least weekly ID1 sameer follow. Please page with questions. HPI: Stephanie Low is a 43 y.o. male with diabetes mellitus admitted on 12/07/2023 3:48 PM for fevers,found to have acute osteomyelitis of the left foot. Pt has a history of left toe gangrene and necrotizing fascitis for which he was admitted 11/09-11/25/23. He underwent debridement of the perineum 11/11/23, was treated with IV Ceftriaxone and flagyl for the Demar's and responded nicely. He was also evaluated by podiatry for left toe gangrene, underwent definitive amputation with clear margins on path from 11/17/23, cultures grew MRSA and Staph lugdunensis but because this was a definitive resection pt wasn't treated. He now returns with fevers at his facility and was found to have an elevated CRP and SED rate in podiatry clinic, therefore admitted for further work-up and management. Xray on admission of the L foot showed osteomyelitis of the 1st Metatarsal head. Pt underwent I&D of the L foot on 12/08/23, path showed acute osteomyelitis at the margins and cultures grew MRSA, susceptibilities pending. Pt returned to the OR 12/09 for repeatdebridement and resection, path pending. He has been treated with IV Vancomycin and pip-joelle since admission, afebrile throughout. Pt denies pain, rash or diarrhea, feels his groin wound is much better but is concerned about the left foot. ANTI-INFECTIVES: IV Vancomycin 12/06- IV pip-joelle 12/06- PMH: Problem List and medical history were reviewed in current EHR. SOCIAL HISTORY AND RISK FACTORS Residence: Lives with family/friend(s) typically but has been at a SNF for rehab Tobacco use: Yes, trying to quit Alcohol use: No Drug use: No EXAMINATION: BP 141/69 Pulse 79 Temp 36.1 ??C (96.9 ??F) (Axillary) Resp 20 Ht 1.803 m (5' 11) Wt (!)139.9 kg (308 lb 6.8 oz) SpO2 96% BMI 43.02 kg/m?? Constitutional: well-nourished male Psychiatric: alert, oriented, cooperative, normal affect. Eyes: no icterus ENT: no thrush Neck: Neck supple Pulmonary: chest symmetric, lungs clear bilaterally and no crackles, wheezes or rales Cardiovascular: Regular rate and rhythm, S1, S2, no audible murmur. GI/Abdomen: Soft, non-tender, non-distended, normoactive bowel sounds Extremities: left foot newly bandaged, no erythema above the bandage. Skin: normal skin color, texture, and turgor. No rashes or lesions. Neurologic: alert, interactive, diminished sensation in distal Les. RELEVANT DATA: Labs: Lab Results Component Value Date/Time WBC 8.35 12/10/2023 0506 PLT 377 12/10/2023 0506 HGB 10.3 (L) 12/10/2023 0506 CR 0.92 12/10/2023 0506 CRP 77 (H) 12/08/2023 1647 Lab Results Component Value Date/Time WBC 8.35 12/10/2023 0506 WBC 10.39 (H) 12/08/2023 1647 WBC 9.80 12/07/2023 1605 Lab Results Component Value Date/Time CR 0.92 12/10/2023 0506 CR 0.98 12/09/2023 1756 CR 0.98 12/08/2023 1647 Lab Results Component Value Date/Time HIVANTIGABY Nonreactive 11/15/2023 0739 Lab Results Component Value Date/Time RPR Non-Reactive 11/12/2023 11:10 PM RPRT Not Reflexed 11/12/2023 11:10 PM A1c 8.5% on 12/08/23 Microbiology: 12/08/23 Tissue cultures L foot: MRSA In 2 of 2 12/08/23 Fungal cultures L foot: no fungal elements in 2 of 2 12/08/23 Anaerobic cultures L foot: NGTD in 06/1111/17/23 Left foot tissue cultures: MRSA and Staph lugdunensis Imaging results: 12/07/23 Xray Left foot: bone erosion of distal 1st metatarsal, I reviewed 12/10/23 Left foot Xray: no gas, soft tissue swelling in 1st metatarsal amputation site, I reviewed. 12/10/23 CXR: clear, situs inversus noted. FACULTY NOTE I saw and evaluated Stephanie Low on today, 12/10/2023. Additional Medical Decision Information: need 2 of 3 categories to bill at that level Number and Complexity of Problems This patient has 2 or more stable, chronic illnesses (MODERATE) 1 acute or chronic illness or injury that poses a threat to life or bodily function (HIGH) Amount and/or Complexity of Data to be Reviewed and Analyzed Moderate (must meet requirements of at least 1 out of 3 categories) High (must meet requirements of at least 2 out of 3 categories) Category 1: Tests, documents, or independent historian(s), any combination of 3 of the following. [x] I have reviewed prior external note(s) from ED, H&P, and Specialist and noted podiatry careplan and hospitalization course. [x] I have reviewed the result(s) of each unique test and noted MRSA on tissue cultures from 12/07, A1C 8.5%, WBC 10> 8, Cr 0.92 [x] I have ordered additional testing per recommendations above. Category 2: Independent interpretation of tests [x] Independent interpretation of a test CXR and left foot imaging- as above. Category 3: Discussion of management or test interpretation [x] I discussed Management with Dr. Glover and we discussed antibiotic plan. Risk of Complications and/or Morbidity or Mortality of Patient Management Drug therapy requiring intensive monitoring for toxicity (HIGH) Aretha Damon MD, 12/10/2023 5:12 PM * Gracia Arredondo, PT - 12/10/2023 9:21 AM CDT Images from the original note were not included. PHYSICAL THERAPY INPATIENT LOWER EXTREMITY EVALUATION Stephanie Low was seen 12/10/2023 for a Physical Therapy Lower Extremity Evaluation. PT Discharge Recommendations Discharge Recommendations: Post-acute placement recommended. Level/type of placement (PT): Sub-Acute Rehab facility Barriers to placement (PT): No known barriers to placement Barriers to discharge to home/community: NA - Post acute placement is recommended and no barriers to placement known. If discharging to home, would need: Physical assistance when mobilizing Post discharge follow-up: PT at post-acute placement Equipment Status: Equipment needs to be determined at next level of care PT Equipment Recommended: Front wheeled walker DIAGNOSIS Patient Active Problem List Diagnosis 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HHS) Hyperglycemia At risk for sexually transmitted infection due to unprotected sex Other acute osteomyelitis of left foot (CMS/HHS) Soft tissue infection PT Treatment Diagnosis: Difficulty in Walking R 26.2 Impaired Mobility Z 74.09 Activity Intolerance Z 73.89 Muscle Weakness M 62.81 Unsteadiness on Feet R 26.81 Procedure: Irrigation and excisional debridement down to and including the level of the bone, left foot First metatarsal head resection, left foot Application posterior splint, left leg Date of Procedure: 12/08/2023 Physical Therapy Orders: Orders Placed This Encounter Procedures PT EVALUATION AND TREATMENT Standing Status: Standing Number of Occurrences: 1 Order Specific Question: Reasons for eval? Answer: As Per Dx Order Specific Question: OK for out of bed activity? (Update Activity Order) Answer: Yes Precautions: Isolation: Contact NWB L LE . Activity: up ad sasha HISTORY Pertinent History: Per Per medicine progress note on 12/09/2023 43 y/o male with PMH significant for recent left hallux amputation, recent demar's gangrene, DM2, schizophrenia, tobacco use disorder admitted on 12/07/2023 with left metatarsal head osteomyelitis now S/P I&D w/ resection 12/07. Medical History No past medical history on file. SOCIAL HISTORY Pt was admitted from NH/rehab. Prior to recent hospitalization pt lived at correction with elevator. Was independent with mobility SUBJECTIVE Patient's Stated Goals: not stated Pain: The patient reports pain is acceptable. Mental Status: Cooperative Follows Direction: Yes, 1step OBJECTIVE Vitals: Vitals: 12/10/23 1447 BP: 141/69 Pulse: 79 Resp: Temp: SpO2: 96% Skin: UE - Intact LE - splint L foot Strength: UE - WNL LE- Impaired L foot ROM: UE- WNL LE - Impaired and splinted L foot Transfers & Bed Mobility: Supine to Sit: Supervision, Set-Up or Standby Prompting Sit to Supine: Supervision, Set-Up or Standby Prompting Sit to Stand: Supervision, Set-Up or Standby Prompting Stand to Sit: Supervision, Set-Up or Standby Prompting Seated Balance: Pt is able to maintain seated balance with UE support. Gait Evaluation: Distance: 3 meters Assistive Device: Front - wheeled walker Assistance (Level): Minimal assistance- Patient performs 75% or more of walking effort. Gait Deviations: NWB LE , needed constant cues for NWB L LE Stairs: NT, does not have stairs Precautions/Restrictions Reviewed: Yes Treatment rendered: Gait training;Transfer training;Bed mobility training Total treatment time: 35 minutes ASSESSMENT Stephanie Low is a 43 y.o. male admitted on 12/07/2023 with L metatarsal head osteomyelitis s/p I&D and metatarsal head rescection Pt is NWB L LE, need constant reminders/assist with wt bearing restriction. When medically ready, pt would benefit from continued PT at rehab facility Patient presents with Impaired gait, Decreased Strength, Impaired Balance, Decreased ROM, and Decreased Activity Tolerance. These impairments affect the patient's ability to safely and independently perform Bed Mobility, Transfers, and Ambulation. Patient will benefit from continued skilled PT services to progress towards goals. See Care Plan for goals. PLAN PT 2-3 x week for duration of hospital stay or until goals achieved, for transfer and gait trainingwith wt bearing restrictions. Next visit gait with walker is able to maintain wt bearing restrictions, otherwise bed to chair only EXHAUST AND MUFFLER FITTER Appropriate: No (more OR) Participated in goal setting and treatment planning: Patient Agrees with goals and treatment plan: Question patient's ability to understand. Gracia Arredondo, PT 12/10/2023 Pager: [employer] PT Department * David Cortes MD - 12/09/2023 9:58 AM CDT Images from the original note were not included. [facility] HYPERBARIC MEDICINE CONSULTATION Referring clinician: Che Palomo DPM Consulting physician: Julio Cortes MD Fellow: Kit Mcconnell MD Indication(s) for hyperbaric oxygen treatments: Non healing diabetic ulceration (Pepe > 3) s/p failed L hallux amputation with recurrence of infection necessitating repeat surgical intervention and broad spectrum antibiotics Compromised/failed surgical flap closure requiring revision- to OR tomorrow Osteomyelitis This is an attempt at limb salvage, high risk for major limb amputation Other Pertinent Diagnoses: Schizophrenia Diabetes Mellitus type II Hypertension Obesity Recommendations and plan: Hyperbaric oxygen treatments up to two times daily around surgical interventions with goal of treating until infection is controlled. Next treatment planned for 12/11/2023 following RTOR with Podiatry. Minimum of 20 treatments with possibility of extension of the treatment series pending response to treatment Assessment: 43 yr old poorly controled type II diabetic male who was readmitted to inpatient medicine secondaryto a recurrence of a LEFT foot infection with radiologic evidence of osteomyelitis just two weeks post surgical intervention. Hyperbaric oxygen therapy is an accepted adjunctive therapy to surgical debridement, antibiotics and other supportive care in the setting of necrotizing soft tissue infection as it can enhance phagocytic abilities of the immune system, enhance the bacterial killing potential of antibiotics, reduce edema and increase oxygen delivery to locally hypoxic areas which can slowthe progress of facultative anaerobes and other bacteria. Risks associated hyperbaric oxygen therapy: No identified risk above usual. The usual risks of hyperbaric oxygen exposure include self-limited minor middle ear barotrauma, self-limited change in lensrefractive error, faster growth of existing cataracts, hyperbaric oxygen associated hypoglycemia, rare oxygen toxicity seizure and exceedingly rare pulmonary over-pressure accident, resulting in pneumothorax or potentially disabling or lethal cerebral gas embolism. In addition there is a remote chance of injury from mechanical dysfunction or fire in the facility. HBO Precautions: Diabetes Consent: risks & benefits were explained to the patient, consent was signed, written teaching materials were provided, a written treatment plan and instructions were given to the patient. HPI: 43 yr old poorly controlled DMII male referred to [facility] Hyperbaric medical team for consultation regarding concern of a recurrent soft tissue infection with concurrent osteomyelitis of the LEFT foot in the setting of failed surgical intervention (2 weeks prior). On 12/07/2023 the patient was seen in Podiatry clinic for follow up s/p L hallux amputation 11/16 (Beth) secondary to gangrenous changes. In clinic, the patient was noted to have skin changes concerning for cellulitis to the left of t he 1st MPJ. Xray imaging was obtained demonstrating findings consistent with osteomyelitis involving the first head. The patient subsequently presented to the ED for admission with initiation of broad-spectrum antibiotics. The patient was taken to the OR 12/07 with Podiatry for I&D with washout and packing; plan for RTOR in 2-3 days. 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 During this stay, the patient was taken to the OR on 11/09 and 11/11 for perineal debridement and wash out. He further had above procedure on 11/16 (L hallux amputation) due to presence of necrotic toe. The patient further denies history of prior seizure or intracranial surgery. I did address a remotenote of TBI; the patient denies known history of TBI. He has a long standing tobacco dependence anddenies knowledge or known blebs, COPD, emphysema. No prior cardiac history including, CAD, HF, or dysrhythmia. He denies prior otic surgery. No recent URI symptoms such as nasal congestion, rhinorrhea, cough, or sore throat. Wound Assessment: S/P L hallux amputation w/ open wound. No active bleeding or gross contamination. No expression of purulence. No appreciable skin erythema, fluctuance, or induration. 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) Hyperglycemia At risk for sexually transmitted infection due to unprotected sex Other acute osteomyelitis of left foot ([facility]/HHS) Past Surgical History: Procedure Laterality Date TOE AMPUTATION - PODIATRIC SURGERY Left 11/17/2023 Procedure: AMPUTATION, TOE; Laterality: Left; Surgeon: Che Palomo DPM; Service: PodiatricSurgery WOUND IRRIGATION AND DEBRIDEMENT Unknown 11/10/2023 Procedure: Excisional debridement, PERINEAL NEC FASC; Laterality: Unknown; Surgeon: Zac Jackson MD; Service: Burn WOUND IRRIGATION AND DEBRIDEMENT N/A 11/11/2023 Procedure: IRRIGATION AND DEBRIDEMENT, PERINEAL WOUND; Laterality: N/A; Surgeon: Donovan Sloan MD; Service: General Surgery Current Facility-Administered Medications Medication Route Frequency acetaminophen (TYLENOL) tablet 650 mg Oral q6h prn escitalopram (LEXAPRO) tablet 20 mg Oral hs traZODone (DESYREL) tablet 50 mg Oral hs ondansetron (ZOFRAN) tablet 4 mg Oral q6h prn loratadine (CLARITIN) tablet 10 mg Oral daily rosuvastatin (CRESTOR) tablet 10 mg Oral hs prazosin (MINIPRESS) capsule 1 mg Oral hs amLODIPine (NORVASC) tablet 10 mg Oral daily nicotine polacrilex (NICORELIEF) gum 2 mg Gum q1h prn insulin ASPART (NovoLOG) FlexPen Subcutaneous tid AC insulin ASPART (NovoLOG) FlexPen Subcutaneous hs mr x1 vancomycin (VANCOCIN) 2,000 mg in NaCl 0.9% 500 mL IVPB Intravenous q12h insulin GLARGINE (LANTUS) 25 UNITS injection vial Subcutaneous q24h oxyCODONE (ROXICODONE) tablet 5-10 mg Oral q4h prn heparin 5000 UNIT/0.5ML injection 5,000 UNITS Subcutaneous q 8h piperacillin-tazobactam (ZOSYN) 4.5 g in NaCl 0.9% IVPB Intravenous q6h nicotine (NICOTROL) 14 mg/ 24hr daily 1 patch Transdermal daily Social History: Long standing tobacco dependence, 1.5 packs/day for 15+ yrs. Marital status: . 2 Children. Occupation: Disabled Family history: Obtained and was negative for spontaneous pneumothorax and connective tissue disorders. Review of Systems: Hyperbaric medicine focused complete review of systems performed and was negative including no history of eye surgery, cataracts, ear surgery, difficulty autoinflating, sinus problems, dental pain, prior pneumothorax, asthma, COPD, tuberculosis, chest surgery, AICD/ pacemaker, current hernia, pain pump or other implanted medical devices, diabetes, claustrophobia, anxiety, panic attacks, previous stroke or seizure history. Physical Exam BP 147/71 (Cuff Location: Right Arm) Pulse 78 Temp 37.3 ??C (99.1 ??F) (Oral) Resp 19 Ht 1.803 m (5' 11) Wt (!) 139.9 kg (308 lb 6.8 oz) SpO2 94% BMI 43.02 kg/m?? General: Well appearing, in no acute distress. Dressed in hospital atire HEENT: Atraumatic, normocephalic. Ears: External auditory canal without edema or cerumen impaction.Teeds 0R/0L. Eyes: Pupils 4 mm b/l, no scleral injection. Nose: No congestion. Mouth: No dental abscess. Neuro: GCS 15, no gaze preference or deviation. Grossly normal sensory motor examination. CV: RRR, no appreciable murmur. Radial pulses 2+ in upper extremities. Chest: CTAB, No wheezes, rhonchi, or rales MSK: History R TMA; surgical site clean, dry, intact. L foot as per ???wound?? Skin: Warm, dry, no appreciable rash Psych: Engaged and attentive. No evidence of over psychosis. Remote memory intact. Laboratory Studies: Hgb A1C 8.5, CBC: WBC 10.39, Hgb 9.8, Plt 314, CPR 77, Glucose 198 Imaging: DULCE and TCO2 imaging obtained at time of consultation: HBO ANGIOGRAPHY EXTREMITY UNILATERAL (12/09/2023 08:57) HBO TCO2 MEASUREMENT COMPLETE (12/09/2023 10:25) Xray LEFT foot: Radiographic findings concerning for osteomyelitis involving the first metatarsal head. US Arterial LEFT lower extremity: 1. No evidence for inflow disease. 2. Transition to monophasic waveforms within the below-knee vessels with a sharp upstroke. I suspect that this is secondary to a hyperemic state, however mild below knee peripheral arterial disease cannot be completely excluded. Communication with referring clinician(s): Verbal and Correspondence Thank you for considering Hyperbaric Medicine to become a part of Stephanie Low's care. Please do not hesitate to call the department at [phone] during clinic hours ([phone]) or page the [facility] HYPERBARIC staff with any questions or concerns. Kit Mcconnell MD Hyperbaric Medicine Fellow Hyperbaric Medicine Attending Physician Addendum 12/09/2023 I have seen and evaluated the patient with Dr. Mcconnell . I reviewed the pertinent medical records with Dr. Mcconnell. I agree with his history, physical exam, medical decision making, impression and plan. I reviewed, edited and agree with the consultation report. Please, do not hesitate to contact us with any questions and thank you for allowing us to participate in [facility]. [place] [facility]: [phone]. David Cortes MD * Angela Cardenas CWOCN - 12/08/2023 3:00 PM CDTAssociated Order(s): CONSULT TO WOUND NURSE Images from the original note were not included. [facility] Nursing consulted by nursing for perineal wounds. Pt was at [facility] 11/09 to 11/24 for Demar's gangrene. Discharge Summary by 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 APRN, CNP (11/25/2023 07:37) Chart and media were reviewed by WOCN. The patient was not seen in person at this time. 11/23 The following wound treatment recommendations are based on chart review: 1. Remove old dressing and clean wound with Vashe and gauze 2. Apply Cavilon skin barrier to periwound skin 3. Lightly pack wound and any tunnels/undermining with Vashe damp Kerlix 4. Cover with ABDs and secure with minimal tape Change Daily or BID for heavy drainage Suggest surgery consult to assess surgical wound healing. Message sent to primary team. [facility] Nursing follow up: later this week after surgery sees Staff to continue to follow skin injury bundle. Escalate concerns to WOCN through additional consult or to the provider when barriers are identified. WOCN available Wednesday through Wednesday on [employer] or [phone] [facility] Nursing attempts to see patients in person when possible, but will at times complete a chart/media review in order to recommend wound treatment in a timely manner. Please reconsult WO if wound condition changes or the current treatment is thought to be no longerappropriate. nAgela Cardenas CWOCN, 12/08/2023 3:05 PM * Che Palomo DPM - 12/07/2023 5:39 PM CDT Images from the original note were not included. Podiatric Surgery ED CONSULT - PGY-3 Stephanie Low : 1980 Sex: male Patient Summary: 43 y.o. male with PMH type 2 diabetes mellitus, daily tobacco use, paranoid schizophrenia, history of TBI admitted on 12/07/2023 with left foot wound. I was asked to see this patient by ED staff regarding left foot wound. ASSESSMENT: New Acute Osteomyelitis of first metatarsal head, left Worsening Incision dehiscence due to noncompliance, left- wound with exposed bone New Cellulitis to level of 1st MPJ, left --No showed outpatient appointments and walked postoperatively resulting in incision dehiscence 20 days s/p Left hallux amputation (DOS 11/17/2023 Dr. Palomo) --Indication: gangrenous hallux, possible stable gas forming infection, right --Gas identified on outside CT 11/09 Daily Tobacco Use --AUS completed 11/16 with no additional workup indicated Controlled T2DM with peripheral neuropathy --A1C: 6.8% 07/2023 Right TMA Paranoid Schizophrenia History of TBI --Patient is own [facility] RECOMMENDATIONS: 1. Dressing: Daily dressing changes with Betadine, 4 x 4 gauze, Kerlix, postoperative shoe 2. Activity: Nonweightbearing in surgical shoe (ordered). 3. Antibiotics: Continue broad spectrum IV antibiotics, will obtain intraoperative cultures 4. Vascular: No need for arterial ultrasound. Patient had AUS 11/17/2023 and no additional interventions indicated at that time. In the morning recommend consult HBO 5. Surgery: No emergent surgical indications at this time, however patient will require intraoperative debridement to be performed in the coming days. Case request has been placed please make patientn.p.o. tonight at 2345 for possible OR tomorrow. This will require multiple surgeries/wash outs. Plan to return to the OR 2-3 days after initial surgery for repeat wash out and closure. Patient understand possible risks and complications of procedure including: infection, non healing skin, non healing bone, damage to nerves and vessels, painful scar, chronic pain, chronic swelling, and need for further surgery including possible more proximal amputation. All questions were answered and no guarantees were given. 6. Imaging: Xray of foot ordered in clinic and reviewed, new cortical disruption of the 1st metatarsal head consistent with osteomyelitis. No soft tissue gas present. 7. Labs: CBC, CRP, sed rate 8. Follow-up: Will continue to follow while inpatient Please page [facility] resident with questions. Patient was seen with [facility] staff, Dr. Palomo CHIEF COMPLAINT: Left foot wound HISTORY OF PRESENT ILLNESS: Stephanie Low is a 43 y.o. male is presenting to the podiatric surgery clinic for s/p above procedure. Doing well. Pain well controlled. Reports compliance with WBAT in postop shoe. Denies NVFC. Nursing facilty has been helping with daily dressings per patient but he is unsure what they are applying. He denies any local or systemic signs of infection. No new complaints. 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 Past Surgical History: Procedure Laterality Date TOE AMPUTATION - PODIATRIC SURGERY Left 11/17/2023 Procedure: AMPUTATION, TOE; Laterality: Left; Surgeon: Che Palomo DPM; Service: PodiatricSurgery WOUND IRRIGATION AND DEBRIDEMENT Unknown 11/10/2023 Procedure: Excisional debridement, PERINEAL NEC FASC; Laterality: Unknown; Surgeon: Zac Jackson MD; Service: Burn WOUND IRRIGATION AND DEBRIDEMENT N/A 11/11/2023 Procedure: IRRIGATION AND DEBRIDEMENT, PERINEAL WOUND; Laterality: N/A; Surgeon: Donovan Sloan MD; Service: General Surgery CURRENT HEALTH STATUS Medications: No current facility-administered medications for this encounter. Current Outpatient Medications Medication chlorhexidine (PERIDEX) 0.12% mouth/throat solution docusate sodium (COLACE) 100 mg oral capsule hydrOXYzine pamoate (VISTARIL) 25 mg oral capsule loratadine (CLARITIN) 10 mg oral tablet milk of magnesia 400 mg/5 mL oral suspension paliperidone palmitate ER (INVEGA SUSTENNA) 156 mg/mL IM injection acetaminophen (TYLENOL) 325 mg oral tablet escitalopram (LEXAPRO) 20 mg oral tablet insulin GLARGINE (LANTUS) 100 units/mL subcutaneous injection vial rosuvastatin (CRESTOR) 10 mg oral tablet traZODone (DESYREL) 50 mg oral tablet amLODIPine (NORVASC) 10 mg oral tablet bisacodyl (DULCOLAX) 10 mg rectal suppository cyclobenzaprine (FLEXERIL) 10 mg oral nicotine (NICOTROL) 14 mg/ 24hr transdermal patch 24 HR nicotine polacrilex (NICORELIEF) 2 mg mouth/throat gum ondansetron (ZOFRAN) 4 mg oral TABS polyethylene glycol 3350 (MIRALAX;GLYCOLAX) 17 g oral packet sennosides (SENOKOT) 17.2 mg oral TABS insulin LISPRO (HUMALOG KWIKPEN) 100 UNIT/ML subcutaneous Kwikpen prazosin (MINIPRESS) 1 mg oral capsule Allergies and drug reactions: No Known Drug Allergies REVIEW OF SYSTEMS: ALL other ROS negative except for those noted in HPI. PHYSICAL EXAMINATIONS: Temp (24hrs), Av.2 ??C (99 ??F), Min:37.2 ??C (99 ??F), Max:37.2 ??C (99 ??F) General: No apparent distress, Alert and oriented Dressing clean, dry, intact Vascular: Pulses: PT/DP pulses nonpalpable, bilateral Hair growth absent at the level of the digits Capillary filling time less than three seconds on left digits 2-5 Lower extremity/foot edema absent Neurological: Protective sensation diminished to light touch, left foot Dermatologic: Skin well approximated with sutures intact proximally Central incision gapping ~ 1.5 cm x 1.5 cm x 2.0 cm --Probes to bone - 1st metatarsal --Local erythema, no erythema tracking proximally --No purulence --Mild to moderate serous drainage present --Severe fibrotic tissue within wound bed Musculoskeletal: Palpatory tenderness absent upon exam Right TMA Left hallux amputation REVIEW OF LABORATORY, PATHOLOGY, AND RADIOLOGY DATA: Lab results: Lab Results Component Value Date WBC 9.80 12/07/2023 RBC 4.08 (L) 12/07/2023 HGB 11.2 (L) 12/07/2023 HCT 34.7 (L) 12/07/2023 PLT 324 12/07/2023 Lab Results Component Value Date NA 139 12/07/2023 K 4.5 12/07/2023 CHLORIDE 97 12/07/2023 CO2 24 11/23/2023 GLU 284 (H) 12/07/2023 UN 20 11/23/2023 CR 1.26 (H) 12/07/2023 CA 8.5 (L) 11/23/2023 Lab Results Component Value Date/Time APTT 32.9 11/10/2023 1431 No results found for: HGBA1C Primary care physician: No primary care provider on file. Niraj Lewis DPM, 12/07/2023 5:40 PM PODIATRIC SURGERY FACULTY NOTE (GC) I saw and evaluated the patient on the date of the resident's note. I discussed with the resident and agree with the resident's findings and plan documented in the resident's note. Any revisions by me are documented in the note. Che Palomo DPM, 12/08/2023 7:36 AM documented in this encounter Nursing Notes * Aubrie Martinez RN - 12/10/2023 12:47 PM CDT Patient needs CXR for HBO consult. Understaffed at moment. Will have portible X- ray take left foot and then transport will take him later today for chest xray. documented in this encounter OR Notes * OR Surgeon - Suzy Patino DPM - 12/10/2023 8:51 AM CDT Images from the original note were not included. Podiatric Surgery Operative Report Stephanie Low : 1980 Sex: male OR Date: 12/10/2023 Surgeon: Suzy Patino DPM Dispatcher Maintenance(s): Samina Singletary DPM PGY3 Pre-Op Diagnosis: Packed open partial first metatarsal amputation, left Noncompliance postoperatively Controlled type II diabetic with peripheral neuropathy Daily tobacco use Post-Op Diagnosis: Same Procedure(s) performed: Irrigation debridement down to the level of and including bone, left Partial first metatarsal amputation, left Pathology/Microbiology: 1. Bone from the first metatarsal at the cut margin was sent to pathology for evaluation of osteomyelitis Anesthesia: MAC with local Hemostasis: None EBL: 25ml Materials/Implants: None Intraoperative Findings: Bone firm and hard, no acute signs of infection Patient I/O: Intake: per anesthesia record Output:per anesthesia record Complications: None INDICATIONS FOR THE OPERATION: 43 y.o. male presents with symptoms associated with a planned return to the operating room following partial first metatarsal amputation that was packed open secondary to acute osteomyelitis. The patient was made aware of conservative measures if he chose to not proceed with the planned return to the operating room. This includes daily dressing changes and antibiotics tailored to intraoperative cultures. Reviewed risks associated with not proceeding with staged approach, which includes risk formore proximal amputation, worsening infection, loss of limb, loss of life. The patient has elected to have surgical therapy for the condition at this time. The patient was made aware of the procedure, including its risks and complications, which are included, but not limited to, pain, swelling, infection, wound dehiscence, numbness, tingling, possibility of recurrence, anesthesia complication, and need for future procedures at a later date. The patient consented to the procedures with verbal and written consent, and all questions of the patient were answered. DESCRIPTION OF THE PROCEDURE: Patient identified in the preoperative holding area. Surgical site marked, extremity initialed and consent signed/confirmed. The patient was brought into the OR (Operating Room), placed in supine position on the Operating Room table. MAC anesthesia was administered. A tourniquet was applied to the left ankle and was well padded with cast padding. Local anesthetic injection was performed using 10 cc of 1:1 mix 2% Lidocaine plain and 0.5% Marcaine plain. Next the foot and leg were prepped and draped in sterile aseptic manner. A time out was performed to identify the patient and correct surgicalsite. Foot and leg were exsanguinated with an Esmarch bandage and ankle tourniquet was inflated to 2 50mmHg for the duration of the case. Attention was then directed to the left foot. The retention sutures were removed and passed to the back table to be discarded. Upon evaluation of the surgical site there was evidence of devitalized soft tissue but the bone appeared healthy. Due to positive blood cultures from the last procedure thedecision was made to proceed with more proximal first metatarsal amputation. The metatarsal shaft was sharply dissected of any soft tissue attachments and a sagittal saw was utilized to resect the distal margin of the first metatarsal. This was passed the back table to be sent to pathology for evaluation of osteomyelitis at the cut margin. The bone felt firm and hard during the osteotomy. The surgical site was then excisionally debrided using a combination of rongeur and 15 blade. The surgical site was then irrigated with copious amounts of sterile saline. Visual inspection of surgical site confirmed no remaining devitalized soft tissue or bone. Skin was remodeled for appropriate closure. Skin was then reapproximated with 3-0 Prolene. Sterile dressings applied starting with betadine-soaked adaptic, 4x4s, archana, ABDs, Kerlix, well-padded posterior splint. POST-OPERATIVE COURSE: The patient tolerated the procedure and anesthesia well. The patient left the Operating Room to thePACU (Postanesthesia Care Unit) with stable vital signs and vascular status intact to the extremityoperated upon. The patient will be transferred back to his inpatient room per anesthesia criteria. Upon discharge, the patient will be given postoperative care instructions for home, postoperative pain medication as necessary, and a postoperative appointment to be seen in clinic. The patient will follow up in Podiatric Surgery Clinic until healing has been obtained. Dr. Patino was present during the entire procedure. Samina Singletary DPM, 12/10/2023 8:51 AM My signature attests that I was present for the espitia or critical portion of this procedure. I was immediately available or had arranged immediate staff availability for all the non-critical or non-keyportions of the entire procedure. Suzy Patino DPM, 12/10/2023 2:12 PM * OR Surgeon - Che Palomo DPM - 12/08/2023 8:45 AM CDT Podiatric Surgery Operative Report Stephanie Low : 1980 Sex: male Surgeon: Che Palomo DPM Dispatcher Maintenance(s): Niraj Lewis DPM PGY-3 [employer] MS-4 Pre-Op Diagnosis: Acute osteomyelitis of the first metatarsal head, left foot Incision dehiscence secondary to noncompliance, left foot Cellulitis of the left foot Poorly controlled type 2 diabetes mellitus Post-Op Diagnosis: Same Procedure(s) performed: Irrigation and excisional debridement down to and including the level of the bone, left foot First metatarsal head resection, left foot Application posterior splint, left leg Anesthesia: MAC with local Hemostasis: Left ankle tourniquet EBL: 5 ml Materials/Implants: None Intraoperative Findings: Open wound to first metatarsal head level. Grossly devitalized tissue in open wound with dishwater drainage present. Good bone quality on osteotomy. Packed open. Specimen: 1: Deep soft tissue left for anaerobic culture fungal culture and Gram stain 2: Bone first metatarsal left foot for anaerobic culture, fungal culture, and Gram stain A: Left first metatarsal head, evaluate cut to side for osteomyelitis for surgical pathology only. Complications: None INDICATIONS FOR THE OPERATION: Stephanie Low is a 43 y.o. male admitted for wound with cellulitis, wound dehiscence, and acute osteomyelitis of his first metatarsal of his left foot. The patient was made aware of the procedure,including its risks and complications, which are included, but not limited to, pain, swelling, continued infection, wound dehiscence, numbness, tingling, possibility of recurrence, anesthesia complication, and need for future procedures at a later date. The patient consented to the procedures with verbal and written consent, and all questions were answered. This is a planned serial procedure and we will return to the OR in 2-3 days for repeat debridement and potential closure. DESCRIPTION OF THE PROCEDURE: Patient identified in the preoperative holding area. Surgical site marked, extremity initialed and consent signed/confirmed. The patient was brought into the OR (Operating Room), placed in supine position on the Operating Room table and the ankle tourniquet was applied to the patient's left ankle which was well padded. Monitored anesthesia care (MAC) anesthesia was obtained and a 0.5% Marcaine plain was injected into the patient's left foot in a Ambriz block fashion to obtain regional anesthesia.Approximately 20 mL was utilized. Foot was then prepped and draped in sterile aseptic manner. Foot was exsanguinated with an Esmarch bandage and ankle tourniquet was inflated to 250 mm of mercury forthe duration of the case. Attention then directed to the dehisced wound at the first metatarsal head site which had some sutures in place over the grossly fibrotic wound. Using #15 blade previous skin incision was incised full-thickness down to the level of the bone. Moderate amount of thin dishwater/white discharge came from the patient's wound around the dorsal aspect of the first metatarsal. There is a significant amount of infected/devitalized appearing tissue throughout the exposed wound bed. All devitalized subcutaneous tissue was excised with sharp excisional debridement with a #15 blade and with a rongeur. A sample of soft tissue was sent to microbiology for culture. The first metatarsal was evaluated, the metatarsal head was soft, correlating to radiographic evidence of osteomyelitis. A sample of the soft 1st metatarsal head was removed with a clean rongeur and was sent to microbiology for culture. Using a sagittal saw an osteotomy was created through the distal aspect of the metatarsal shaft and a dorsal distal medial to proximal proximal plantar lateral attitude to provide decrease pressure over the plantar surface of the bone. The first metatarsal head was removed from the surgical site and sent to pathology to evaluate the cut side for osteomyelitis.The remaining first metatarsal appears to be grossly healthy and viable in appearance. The plantar plate was then sharply excised using #15 blade and removing the sesamoids at the same time. Next, using copious amount of sterile saline irrigation was performed throughout the wound bed until 3 L wasused. Wound bed was evaluated again and remaining devitalized soft tissue was excised. After thorough irrigation, wound bed appeared to be quite healthy in appearance. Wound was then dressed with Vashe soaked half-inch packing, Betadine soaked Adaptic, 4 x 4 gauze, Archana, ABD, cast padding, well-padded posterior splint was applied. Tourniquet was deflated hyperemic response noted throughout the remaining digits. COMPLICATIONS: No complications encountered throughout the case. POST-OPERATIVE COURSE: The patient tolerated the procedure and anesthesia well. The patient left the Operating Room to thePACU (Postanesthesia Care Unit) with stable vital signs and vascular status intact to the extremityoperated upon. The patient will be transferred back to his inpatient room per anesthesia criteria. This is a planned serial procedure and we will return to the OR in 2-3 days for repeat debridement and potential closure. Dr. Palomo present during the entire procedure. Niraj Lewis DPM, 12/08/2023 8:45 AM My signature attests that I was present for the espitia or critical portion of this procedure. I was immediately available or had arranged immediate staff availability for all the non-critical or non-keyportions of the entire procedure. Che Palomo DPM, 12/08/2023 8:31 PM documented in this encounter ED Notes * Viridiana Cardenas RN - 12/08/2023 2:54 AM CDT Pt c/o worsening headache. PO tylenol given. No other complaints at this time. * Gale Peoples PA-C - 12/07/2023 11:26 PM CDT ED Provider Note Stephanie Low : 1980 Sex: male Patient Arrival Date and Time: 12/07/2023 3:48 PM TRANSFER OF CARE NOTE HPI & ED Course: In brief, 43 y.o. male with PMHx including DM, demar's gangrene, recent toe amputation presents with from clinic with concern for progressive food infection. Patient had follow up in podiatry clinic today. Sent to ED with concern for infection/progression in osteo. No leukocytosis, elevated CRP and SED Podiatry consulted with plan for operative management tomorrow NPO midnight Started vanc, zosyn Admitting to medicine Patient signed out by Gabriela Mclani PA-C. Please see their note for more detailed H&P. Plan: Orders Placed This Encounter SED RATE (ESR) C-REACTIVE PROTEIN LACTATE (LACTIC ACID) CBC WITH PLTS/AUTO DIFF ED CHEMISTRY LABS(NA,K,CL,CO2,GLU,CREAT,CA-IONIZED,ANION GAP) EXTRA TUBE - DARK GREEN EXTRA TUBE - BLUE DIET NPO No Labs Needed DISCONTD: cefEPIME (MAXIPIME) 2,000 mg in NaCl 0.9% IVPB vancomycin (VANCOCIN) 3,000 mg in NaCl 0.9% IVPB piperacillin-tazobactam (ZOSYN) 4.5 g in NaCl 0.9% IVPB nicotine (NICOTROL) 14 mg/ 24hr daily 1 patch nicotine polacrilex (NICORELIEF) gum 2 mg DISCONTD: nicotine polacrilex (NICORELIEF) gum 2 mg nicotine polacrilex (NICORELIEF) gum 2 mg BLOOD AEROBIC/ANAEROBIC CULTURE Bathe patient with CHG Cloths evening before surgery Bathe patient with CHG Cloths the morning of surgery Results: Results for orders placed or performed during the hospital encounter of 12/07/23 (from the past 24 hour(s)) SED RATE (ESR) Result Value Ref Range Sed Rate 120 (H) 2 - 10 mm/hr C-REACTIVE PROTEIN Result Value Ref Range C-Reactive Protein 82 (H) <=4 mg/L LACTATE (LACTIC ACID) Result Value Ref Range Lactate 2.1 0.7 - 2.1 mmol/L Narrative Send specimen on ice! CBC WITH PLTS/AUTO DIFF Result Value Ref Range WBC 9.80 4.00 - 10.00 k/cmm RBC 4.08 (L) 4.60 - 6.00 m/cmm Hgb 11.2 (L) 13.1 - 17.5 g/dL Hematocrit 34.7 (L) 40.0 - 51.0 % MCV 85.0 80.0 - 100.0 fL MCH 27.5 25.0 - 32.0 pg MCHC 32.3 31.0 - 36.0 g/dL RDW 13.7 11.5 - 14.5 % Plt 324 150 - 400 k/cmm MPV 9.4 6.5 - 12.5 fL Automated Abs Neutrophil 5.37 1.70 - 6.50 k/cmm Abs Immature Granulocyte 0.12 (H) 0.00 - 0.09 k/cmm Abs Neutrophil 5.37 1.70 - 6.50 k/cmm Abs Lymphocyte 2.61 0.80 - 4.00 k/cmm Abs Monocyte 1.32 (H) 0.20 - 1.00 k/cmm Abs Eosinophil 0.34 0.00 - 0.60 k/cmm Abs Basophil 0.04 0.00 - 0.20 k/cmm ED CHEMISTRY LABS(NA,K,CL,CO2,GLU,CREAT,CA-IONIZED,ANION GAP) Result Value Ref Range Sodium 139 135 - 148 mmol/L Chloride 97 92 - 108 mmol/L AnGap 15 8 - 16 mmol/L Glucose 284 (H) 70 - 100 mg/dL ICA, Actual 4.89 4.40 - 5.20 mg/dL ICA, pH Corrected 4.74 4.40 - 5.20 mg/dL Creatinine 1.26 (H) 0.70 - 1.25 mg/dL BICARB 26 22 - 26 mEq/L eGFR (2020 CKD-EPI) 72 >=60 ml/min/1.73m2 Potassium 4.5 3.5 - 5.3 mmol/L EXTRA TUBE - DARK GREEN Result Value Ref Range DARK GREEN TUBE Stored EXTRA TUBE - BLUE Result Value Ref Range BLUE TUBE Transfer of Care Plan: Awaiting medicine admission Podiatry following with plan for OR tomorrow-NPO midnight Final ED Course, Disposition, and Plan: Care assumed from the previous provider and available lab, imaging results were reviewed and the patient was reexamined. Plan of care was discussed with the ED attending. Patient remained hemodynamically stable throughout additional observation in the ED. Patient did not require additional interventions throughout additional observation in the ED and was transferred to the OR for ongoing evaluation and management. Gale Peoples PA-C, 12/07/2023 11:26 PM * Alena Mclain PA-C - 12/07/2023 8:44 PM CDT EMERGENCY DEPARTMENT NOTE TRANSFER OF CARE Patient: Stephanie Low : 1980 Age: 43 y.o. male Sign out received from Allyssa Drummond MD. Please see original ED provider note for further details. CHIEF COMPLAINT No chief complaint on file. PERTINENT HPI, PMH, & ED COURSE Stephanie Low is a 43 y.o. male with history of diabetes, Demar's status post surgery severalweeks ago as well as recent left great toe amputation 1 week ago who presents to the emergency department for concern for left great toe osteomyelitis. Patient was seen for follow-up in clinic with podiatry today and they obtained an x-ray which is concerning for osteomyelitis. He denies nausea, vomiting, fevers, abdominal pain, headaches, or pain in the foot. No paresthesias. He has not had drainage from that foot. Work-up thus far/ED Course Exam Left great toe status post amputation, granulation tissue visible No purulent drainage, no concern for abscess now Labs CRP 82 ESR 120 Interventions Vancomycin and zosyn Consults Podiatry Dressing: Daily dressing changes with Betadine, 4 x 4 gauze, Kerlix, postoperative shoe Activity: Nonweightbearing in surgical shoe (ordered). Antibiotics: Continue broad spectrum IV antibiotics, will obtain intraoperative cultures Surgery: No emergent surgical indications at this time, however patient will require intraoperativedebridement to be performed in the coming days. Case request has been placed please make patient n.p.o. tonight at 2345 for possible OR tomorrow. Labs: CBC, CRP, sed rate, daily Follow-up: Will continue to follow while inpatient Work-Up Pending & Plan Admit to medicine - signed out Plan for debridement tomorrow with podiatry Pain control FINAL ED COURSE, DISPOSITION, AND PLAN BP 185/93 (Cuff Location: Right Arm, Patient Position: Lying Down) Pulse 83 Temp 37.2 ??C (99 ??F) (Oral) Resp 16 SpO2 94% Upon assuming care, I reviewed the chart, results of studies performed during their course in the ED, re-examined the patient, and discussed their care and plan with my supervising attending. ED Course as of 12/07/23 2300 Tue Dec 07, 2023 2242 Started nicotine gum PRN Started EXHAUST AND MUFFLER FITTER glargine and lispro The patient remained in the emergency department through the end of my shift. Their care was signedout [id number] with the oncoming provider. Dx, DDx, Assessment and Plan was discussed with Attending Emergency Medicine Physician. Final Clinical Impression 1. Other acute osteomyelitis of left foot ([facility]) Disposition and Plan Signed out to oncoming ED provider Gale Peoples PA-C to continue ongoing care and disposition. Please see their KIET note for final details regarding this patient's plan Alena Mclain PA-C 12/07/23, 20:44 Dictation Disclaimer: Some notes are completed with voice-recognition dictation software. As a result, there may be errors in the script that have gone undetected. Errors are generally corrected in real time. Please contact me via [employer] staff message if you note any errors requiring clarification. * Farida Beyer RN - 12/07/2023 7:41 PM CDT Assumed care of pt. SNF director here as pt was reported missing when he did not return back from the clinic. Plan for admission with OR tomorrow. NPO at midnight, pt aware. * Allyssa Drummond MD - 12/07/2023 4:25 PM CDT Emergency Department Physician Note [facility] HISTORY Stephanie Low is a 43 y.o. male with history of diabetes, Demar's status post surgery severalweeks ago as well as recent left great toe amputation 1 week ago who presents to the emergency department for concern for left great toe osteomyelitis. Patient was seen for follow-up in clinic with podiatry today and they obtained an x-ray which is concerning for osteomyelitis. He denies nausea, vomiting, fevers, abdominal pain, headaches, or pain in the foot. No paresthesias. He has not had drainage from that foot. PHYSICAL EXAM General: Answering questions appropriately. Sitting comfortably in no acute distress. Eyes: Sclera white, lids normal, no drainage. Pupils equal, round, reactive to light. Head & Neck: Normocephalic, atraumatic. Moist mucus membranes. Neck symmetric, trachea midline. Cardiac: Regular rate and rhythm. No lower extremity edema. Pulm: Unlabored respiratory effort. Lungs clear to auscultation bilaterally. GI: No flank tenderness. Abdomen soft, non-distended, non-tender to palpation. No rebound or guarding. MSK: Freely moving all extremities. Left great toe status post amputation, granulation tissue visible. Neuro: Alert & oriented, normal speech. Following commands. Cranial nerves II- XII grossly intact. No focal sensory or motor deficits noted in upper or lower extremities. Skin: Warm. No diaphoresis. No visible rashes, lesions, or bruising. BP 147/71 (Cuff Location: Right Arm) Pulse 78 Temp 37.3 ??C (99.1 ??F) (Oral) Resp 19 Ht 1.803 m (5' 11) Wt (!) 139.9 kg (308 lb 6.8 oz) SpO2 94% BMI 43.02 kg/m?? MEDICAL DECISION MAKING Stephanie Low is a 43 y.o. male with history of recent left great toe amputation who presents with concern for osteomyelitis. Initial vitals unremarkable. Differential includes osteomyelitis, no evidence of gas on x-ray to suggest gangrene, the wound does not look particularly purulent so not wor ried for abscess right now. Labs including CRP of 82, ESR 120 consistent with osteomyelitis. I contacted podiatry who will try to take him to the operating room pending availability tonight. Put on broad-spectrum antibiotics including vancomycin and Zosyn. N.p.o. for potential OR. Will admit to medicine. ED Course as of 12/09/23 1339 Tue Dec 07, 2023 1654 Paged podiatry [phone] C-Reactive Protein(!): 82 1814 Sed Rate(!): 120 2049 Paged MOD for sign out CHART CODING Problems Addressed 1 undiagnosed new problem with uncertain prognosis Data Considered Tests ordered, Independent interpretation of studies, and External notes reviewed and summarized Risk of Patient Management Prescription drug management, Decision regarding hospitalization, and Decision regarding surgery or procedure CLINICAL IMPRESSION 1. Other acute osteomyelitis of left foot ([facility]) DISPOSITION & PLAN Patient remained in the emergency department through the end of my shift. Their care was signed outto oncoming ED provider: DALE Mclain with the following plan: OR in AM with podiatry Allyssa Drummond MD, 12/09/2023 1:39 PM Resident Physician (PGY-3) documented in this encounter Miscellaneous Notes * Nursing Assessment - Dawood Sargent RN - 12/14/2023 11:05 AM CDT Nursing Assessment Head to Toe Head to Toe Assessment Shift Summary [id number] Alert and oriented x3, unsure of the date. Denies pain. Morning aspart not given, went tohbo before breakfast. Dressing to groin changed per order. Resting comfortably in bed. Neurologic/Cognitive Assessment Within Defined Limits except for: Cognition: poor attention/concentration HEENT Within Defined Limits Cardiac Within Defined Limits Respiratory Within defined limits Neurovascular Within Defined Limits Gastrointestinal Within Defined Limits Stool (unmeasured): 1 (12/12/23 0018) Stool Amount: large (12/10/23 0203) Stool Color: brown (12/12/23 0018) Stool Consistency: formed (12/12/23 0018) Genitourinary Within Defined Limits Musculoskeletal Assessment Within Defined Limits except for: Musculoskeletal Assessment: General Mobility: Generalized weakness Range of Motion: LLE - brace/immobilizer/splint/sling/cast and moderately impaired Integumentary Assessment Within Defined Limits except for: Skin Assessment Integrity - see Avatar LDA documentation Integrity Location - left foot and groin Patient Lines/Drains/Airways Status Active LDAs Name Placement date Placement time Site Days Peripheral IV 12/13/23 20 gauge;1 3/4 in length Anterior;Right Forearm 12/13/23 1700 -- less than 1 Wound 11/10/23 Incision Perineum 11/10/23 1707 Perineum 33 Wound 11/10/23 Foot Left 11/10/23 1839 Foot 33 Wound 12/08/23 Groin 12/08/23 1415 Groin 5 Wound 12/10/23 Incision Foot Left 12/10/23 1118 Foot 3 Splint/Immobilizer LLE Foot/Ankle - PFS 12/10/23 1141 -- 3 Psychosocial Assessment Within Defined Limits except for: Psychosocial Assessment: Observed Patient Behaviors: Quiet/withdrawn * Discharge non-MD/non-MIRI Summaries - Gracia Arredondo PT - 12/14/2023 9:38 AM CDT Physical Therapy Inpatient Discharge Summary Stephanie Low [id number] Diagnosis Patient Active Problem List Diagnosis 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HHS) Hyperglycemia At risk for sexually transmitted infection due to unprotected sex Other acute osteomyelitis of left foot (CMS/HHS) Soft tissue infection Pt status per initial evel Equipment Status: Equipment needs to be determined at next level of care Front wheeled walker Status of progress toward established goals: Goals of PT not met. Recommend continue with PT at rehab facility to improve mobility within wt bearing restrictions Plan: Discharge to Rehab Facility Physical Therapist: Gracia Arredondo, PT Date: 12/14/2023 Pager: Lisa PT Department * Nursing Assessment - Kate Sarmiento RN - 12/14/2023 6:45 AM CDT Nursing Assessment Head to Toe Head to Toe Assessment Shift Summary Shift Summary [id number] Pt alert oriented and able to make needs known, able to move self in bed. Slept most of the night, denies pain or discomfort. Will continue to monitor. Neurologic/Cognitive Within Defined Limits HEENT Within Defined Limits Cardiac Within Defined Limits Respiratory Within defined limits Neurovascular Assessment Within Defined Limits except for: Neurovascular LLE Sensation: Tenderness Gastrointestinal Assessment Within Defined Limits except for: Abdominal appearance: Obese Stool (unmeasured): 1 (12/12/23 0018) Stool Amount: large (12/10/23 0203) Stool Color: brown (12/12/23 0018) Stool Consistency: formed (12/12/23 0018) Genitourinary Within Defined Limits Musculoskeletal Assessment Within Defined Limits except for: Musculoskeletal Assessment: Range of Motion: LLE - brace/immobilizer/splint/sling/cast and moderately impaired RLE - amputation Integumentary Assessment Within Defined Limits except for: Skin Assessment Integrity - see Avatar LDA documentation Patient Lines/Drains/Airways Status Active LDAs Name Placement date Placement time Site Days Peripheral IV 12/13/23 20 gauge;1 3/4 in length Anterior;Right Forearm 12/13/23 1700 -- less than 1 Wound 11/10/23 Incision Perineum 11/10/23 1707 Perineum 33 Wound 11/10/23 Foot Left 11/10/23 1839 Foot 33 Wound 12/08/23 Groin 12/08/23 1415 Groin 5 Wound 12/10/23 Incision Foot Left 12/10/23 1118 Foot 3 Splint/Immobilizer LLE Foot/Ankle - PFS 12/10/23 1141 -- 3 Psychosocial Within Defined Limits * Nursing Assessment - Natasha Vivar RN - 12/13/2023 6:36 PM CDT Nursing Assessment Head to Toe Head to Toe Assessment Shift Summary [id number] Daily dressing change done per order, reported 5/10 MARTINEZ, tylenol given with pain relief, BG monitoring, insuline given per mar, ate adequately 100% of his dinner, drinking well, splinted, aced wrap dressing to LLE, c/d/I, up to the bedside commode x 2, voiding yellow clear urine, no BM, abx infusing, no acute changes since previous shift, intentional rounding, will continue to monitor. Filed Vitals: 12/13/23 1603 BP: 111/50 Pulse: 68 Resp: 16 Temp: 36.4 ??C (97.6 ??F)Natasha Vivar, SABINE, 12/13/2023 6:45 PM Neurologic/Cognitive Within Defined Limits HEENT Within Defined Limits Cardiac Within Defined Limits Respiratory Within defined limits Neurovascular Assessment Within Defined Limits except for: Neurovascular LLE Sensation: Tenderness Gastrointestinal Assessment Within Defined Limits except for: Abdominal appearance: Obese Stool (unmeasured): 1 (12/12/23 0018) Stool Amount: large (12/10/23 0203) Stool Color: brown (12/12/23 0018) Stool Consistency: formed (12/12/23 0018) Genitourinary Within Defined Limits Musculoskeletal Assessment Within Defined Limits except for: Musculoskeletal Assessment: Range of Motion: LLE - moderately impaired and brace/immobilizer/splint/sling/cast Integumentary Assessment Within Defined Limits except for: Skin Assessment Color/Characteristics - redness, blanchable Color/Characteristics Location - wound to buttock and groin Integrity - see Avatar LDA documentation and cuts or scratches Patient Lines/Drains/Airways Status Active LDAs Name Placement date Placement time Site Days Peripheral IV 12/13/23 20 gauge;1 3/4 in length Anterior;Right Forearm 12/13/23 1700 -- less than 1 Wound 11/10/23 Incision Perineum 11/10/23 1707 Perineum 33 Wound 11/10/23 Foot Left 11/10/23 1839 Foot 32 Wound 12/08/23 Groin 12/08/23 1415 Groin 5 Wound 12/10/23 Incision Foot Left 12/10/23 1118 Foot 3 Splint/Immobilizer LLE Foot/Ankle - PFS 12/10/23 1141 -- 3 Psychosocial Within Defined Limits * Nursing Assessment - Natasha Vivar RN - 12/13/2023 11:53 AM CDT Nursing Assessment Head to Toe Head to Toe Assessment Shift Summary [id number] Alert and oriented x 4, able to use call light to report needs, vs WNL, on Ra, reported 7/10 tenderness, aching pain to LLE, 10 mg oxycodone given with report of partial pain relief, LLE casted and splinted, aced wrap, HBO earlier this shift, LLE dressing c/d/intact, cms intact, partial right foot amputation with dressing intact, blood glucose checks, insulin given per jul/W meal, ate 100% of hisbreakfast and lunch, drinking well, no BM this shift, groin/buttock wound dressing changed and completed per order, pt will be discharging this shift, no acute changes, intentional rounding will continue to monitor.Filed Vitals: 12/13/23 1006 BP: 139/58 Pulse: 78 Resp: 17 Temp: 36.7 ??C (98.1 ??F) Natasha Vivar RN, 12/13/2023 1:43 PM Neurologic/Cognitive Assessment Within Defined Limits except for: Cognition: poor judgement/safety awareness Comments: Mild forgetfulness HEENT Within Defined Limits Cardiac Within Defined Limits Respiratory Within defined limits Neurovascular Assessment Within Defined Limits except for: Neurovascular LLE Sensation: Tenderness Edema Present: Yes Left Lower Extremity: 2+ Gastrointestinal Assessment Within Defined Limits except for: Abdominal appearance: Obese Stool (unmeasured): 1 (12/12/2317) Stool Amount: large (12/10/23 0203) Stool Color: brown (12/12/2317) Stool Consistency: formed (12/12/2317) Genitourinary Within Defined Limits Musculoskeletal Assessment Within Defined Limits except for: Musculoskeletal Assessment: General Mobility: Moderately impaired Range of Motion: LLE - moderately impaired and brace/immobilizer/splint/sling/cast Integumentary Assessment Within Defined Limits except for: Skin Assessment Color/Characteristics - redness, blanchable Color/Characteristics Location - wound to derick/ buttock: dressing change completed per order Integrity - see Avatar LDA documentation Patient Lines/Drains/Airways Status Active LDAs Name Placement date Placement time Site Days Peripheral IV 12/08/23 20 gauge;1 3/4 in length Anterior;Left Forearm 12/08/23 2114 -- 4 Peripheral IV 12/10/23 20 gauge;1 3/4 in length Anterior;Right Forearm 12/10/23 0847 -- 3 Wound 11/10/23 Incision Perineum 11/10/23 1707 Perineum 32 Wound 11/10/23 Foot Left 11/10/23 1839 Foot 32 Wound 12/08/23 Groin 12/08/23 1415 Groin 4 Wound 12/10/23 Incision Foot Left 12/10/23 1118 Foot 3 Splint/Immobilizer LLE Foot/Ankle - PFS 12/10/23 1141 -- 3 Psychosocial Within Defined Limits * Nursing Assessment - Susie Matson, SABINE - 12/13/2023 6:31 AM CDT Nursing Assessment Head to Toe Head to Toe Assessment Shift Summary [id number] Patient is alert and oriented x 4,RA.Vitals stable.Able to make needs known.Pt using commode at thebedside independently and pt is interiano of NWB on L foot.bowel Patient c/o headache, given prn tylenolwith effective. NWB LLE.Able to turn self in bed.Using urinal to void. Pt slept well. Calls appropriately.Pt slept well.at night.Continue to monitor.Filed Vitals: 12/12/23 2357 BP: 132/71 Pulse: 69 Resp: 18 Temp: 35.5 ??C (95.9 ??F) Weight: Neurologic/Cognitive Assessment Within Defined Limits except for: Cognition: poor judgement/safety awareness HEENT Within Defined Limits Cardiac Within Defined Limits Respiratory Within defined limits Neurovascular Assessment Within Defined Limits except for: Neurovascular LLE Sensation: Sensation decreased Edema Present: Yes Left Lower Extremity: 1+ Gastrointestinal Within Defined Limits Stool (unmeasured): 1 (12/12/2317) Stool Amount: large (12/10/23 0203) Stool Color: brown (12/12/2317) Stool Consistency: formed (12/12/2317) Genitourinary Within Defined Limits Comments: Uses urinal Musculoskeletal Assessment Within Defined Limits except for: Musculoskeletal Assessment: Range of Motion: LLE - brace/immobilizer/splint/sling/cast, moderately impaired and amputation RLE - amputation Comments: R TMA prior to admission Integumentary Assessment Within Defined Limits except for: Skin Assessment Integrity - see Avatar LDA documentation Patient Lines/Drains/Airways Status Active LDAs Name Placement date Placement time Site Days Peripheral IV 12/08/23 20 gauge;1 3/4 in length Anterior;Left Forearm 12/08/23 2114 -- 4 Peripheral IV 12/10/23 20 gauge;1 3/4 in length Anterior;Right Forearm 12/10/23 0847 -- 2 Wound 11/10/23 Incision Perineum 11/10/23 1707 Perineum 32 Wound 11/10/23 Foot Left 11/10/23 1839 Foot 32 Wound 12/08/23 Groin 12/08/23 1415 Groin 4 Wound 12/10/23 Incision Foot Left 12/10/23 1118 Foot 2 Splint/Immobilizer LLE Foot/Ankle - PFS 12/10/23 1141 -- 2 Psychosocial Within Defined Limits * Nursing Assessment - Sravani Rosado RN - 12/12/2023 6:50 PM CDT Nursing Assessment Head to Toe Head to Toe Assessment Shift Summary Pt alert and oriented, pleasant. Uses call light. Independent to commode at bedside. Needs reminders that he is NWB to LLE. Moderate BM this shift. Uses urinal. Dressings to perineum and groin completed post BM. Dressing and splint to LLE, c/d/I. Tolerated well. Ate 100% of meals. Turns self. Drinks adequate amount of fluids. Requested PRN nicotine gum several times this shift. Pt expressed excitement to leave hospital stating I am doing better, so I get to leave. Continue with POC. Sravani Rosado, RN, 12/12/2023 6:55 PM Neurologic/Cognitive Assessment Within Defined Limits except for: Cognition: poor judgement/safety awareness HEENT Within Defined Limits Cardiac Within Defined Limits Respiratory Within defined limits Neurovascular Assessment Within Defined Limits except for: Neurovascular LLE Sensation: Tenderness Gastrointestinal Within Defined Limits Stool (unmeasured): 1 (12/12/23 0018) Stool Amount: large (12/10/23 0203) Stool Color: brown (12/12/23 0018) Stool Consistency: formed (12/12/23 0018) Genitourinary Within Defined Limits Musculoskeletal Assessment Within Defined Limits except for: Musculoskeletal Assessment: Range of Motion: LLE - brace/immobilizer/splint/sling/cast and amputation RLE - amputation Comments: 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 Integumentary Assessment Within Defined Limits except for: Skin Assessment Integrity - see Avatar LDA documentation Patient Lines/Drains/Airways Status Active LDAs Name Placement date Placement time Site Days Peripheral IV 12/08/23 20 gauge;1 3/4 in length Anterior;Left Forearm 12/08/23 2114 -- 3 Peripheral IV 12/10/23 20 gauge;1 3/4 in length Anterior;Right Forearm 12/10/23 0847 -- 2 Wound 11/10/23 Incision Perineum 11/10/23 1707 Perineum 32 Wound 11/10/23 Foot Left 11/10/23 1839 Foot 32 Wound 12/08/23 Groin 12/08/23 1415 Groin 4 Wound 12/10/23 Incision Foot Left 12/10/23 1118 Foot 2 Splint/Immobilizer LLE Foot/Ankle - PFS 12/10/23 1141 -- 2 Psychosocial Within Defined Limits * Nursing Assessment - Susie Matson, SABINE - 12/12/2023 6:18 AM CDT Nursing Assessment Head to Toe Head to Toe Assessment Shift Summary [id number] Patient is alert and oriented x 4,RA.Vitals stable.Able to make needs known.Pt using commode at thebedside independently and pt is interiano of NWB on L foot.Pt had bowel movement x 1,dressing changed the patient c/o headache, given prn tylenol and oxycodone with effective. IV abx given as scheduled. NWB LLE.Able to turn self in bed.Using urinal to void. Pt slept well. Calls appropriately.Pt slept well.Continue to monitor.Filed Vitals: 12/12/2317 BP: 138/73 Pulse: 72 Resp: Temp: 36.6 ??C (97.8 ??F) Weight: Neurologic/Cognitive Assessment Within Defined Limits except for: Cognition: poor judgement/safety awareness HEENT Within Defined Limits Cardiac Within Defined Limits Respiratory Within defined limits Neurovascular Assessment Within Defined Limits except for: Neurovascular LLE Sensation: Sensation decreased Edema Present: Yes Left Lower Extremity: 1+ Gastrointestinal Within Defined Limits Stool (unmeasured): 1 (12/12/2317) Stool Amount: large (12/10/23 0203) Stool Color: brown (12/12/2317) Stool Consistency: formed (12/12/2317) Genitourinary Within Defined Limits Comments: Uses urinal Musculoskeletal Assessment Within Defined Limits except for: Musculoskeletal Assessment: Range of Motion: LLE - brace/immobilizer/splint/sling/cast, moderately impaired and amputation RLE - amputation Comments: R TMA prior to admission Integumentary Assessment Within Defined Limits except for: Skin Assessment Integrity - see Avatar LDA documentation Patient Lines/Drains/Airways Status Active LDAs Name Placement date Placement time Site Days Peripheral IV 12/08/23 20 gauge;1 3/4 in length Anterior;Left Forearm 12/08/232113 -- 3 Peripheral IV 12/10/23 20 gauge;1 3/4 in length Anterior;Right Forearm 12/10/23 0847 -- 1 Wound 11/10/23 Incision Perineum 11/10/23 1707 Perineum 31 Wound 11/10/23 Foot Left 11/10/23 1839 Foot 31 Wound 12/08/23 Groin 12/08/23 1415 Groin 3 Wound 12/10/23 Incision Foot Left 12/10/23 1118 Foot 1 Splint/Immobilizer LLE Foot/Ankle - PFS 12/10/23 1141 -- 1 Psychosocial Within Defined Limits * Nursing Assessment - Virgil Ross RN - 12/11/2023 4:55 PM CDT Nursing Assessment Head to Toe Head to Toe Assessment Shift Summary Shift Summary Neurologic/Cognitive Within Defined Limits HEENT Within Defined Limits Cardiac Within Defined Limits Respiratory Within defined limits Neurovascular Within Defined Limits Gastrointestinal Within Defined Limits Stool (unmeasured): 1 (12/11/23 1600) Stool Amount: large (12/10/23 0203) Stool Color: brown (12/10/23 0203) Stool Consistency: loose (12/10/23 0203) Genitourinary Within Defined Limits Musculoskeletal Assessment Within Defined Limits except for: Integumentary Within Defined Limits Patient Lines/Drains/Airways Status Active LDAs Name Placement date Placement time Site Days Peripheral IV 12/08/23 20 gauge;1 3/4 in length Anterior;Left Forearm 12/08/232113 -- 2 Peripheral IV 12/10/23 20 gauge;1 3/4 in length Anterior;Right Forearm 12/10/23 0847 -- 1 Wound 11/10/23 Incision Perineum 11/10/23 1707 Perineum 30 Wound 11/10/23 Foot Left 11/10/23 1839 Foot 30 Wound 12/08/23 Groin 12/08/23 1415 Groin 3 Wound 12/10/23 Incision Foot Left 12/10/23 1118 Foot 1 Splint/Immobilizer LLE Foot/Ankle - PFS 12/10/23 1141 -- 1 Psychosocial Within Defined Limits * Nursing Assessment - Virgil Ross RN - 12/11/2023 11:44 AM CDT Nursing Assessment Head to Toe Head to Toe Assessment Shift Summary A&Ox4. Able to make needs known. Denies pain. Scheduled medications given whole. IV abx administered. Insulin given per JUL. Patient completed HBO treatment this morning. Voiding in bedside urinal with no issues. Eating and drinking. Dressing on LLE c/d/I. Patient had 1xBM this evening. Groin dressing changed. Continue to monitor. Neurologic/Cognitive Within Defined Limits HEENT Within Defined Limits Cardiac Within Defined Limits Respiratory Within defined limits Neurovascular Within Defined Limits Gastrointestinal Within Defined Limits Stool Amount: large (12/10/23 0203) Stool Color: brown (12/10/23 0203) Stool Consistency: loose (12/10/23 020) Genitourinary Within Defined Limits Musculoskeletal Assessment Within Defined Limits except for: Integumentary Within Defined Limits Patient Lines/Drains/Airways Status Active LDAs Name Placement date Placement time Site Days Peripheral IV 12/08/23 20 gauge;1 3/4 in length Anterior;Left Forearm 12/08/23 2114 -- 2 Peripheral IV 12/10/23 20 gauge;1 3/4 in length Anterior;Right Forearm 12/10/23 0847 -- 1 Wound 11/10/23 Incision Perineum 11/10/23 1707 Perineum 30 Wound 11/10/23 Foot Left 11/10/23 1839 Foot 30 Wound 12/08/23 Groin 12/08/23 1415 Groin 2 Wound 12/10/23 Incision Foot Left 12/10/23 1118 Foot 1 Splint/Immobilizer LLE Foot/Ankle - PFS 12/10/23 1141 -- 1 Psychosocial Within Defined Limits * Nursing Assessment - May Torres RN - 12/11/2023 6:28 AM CDT Nursing Assessment Head to Toe Head to Toe Assessment Shift Summary Pt s/p I&D with resection. C/o headache, given prn med once. HBO treatment starts today. IV abxgiven as scheduled. NWB LLE. Groin site dressing changed w serosanguineous drainage. BG check. Pt slept well. Make needs known, calls appropriately. Neurologic/Cognitive Assessment Within Defined Limits except for: Cognition: poor judgement/safety awareness HEENT Within Defined Limits Cardiac Within Defined Limits Respiratory Within defined limits Neurovascular Assessment Within Defined Limits except for: Neurovascular LLE Sensation: Tenderness and sensation decreased Edema Present: Yes Left Lower Extremity: 1+ Gastrointestinal Within Defined Limits Stool Amount: large (12/10/23202) Stool Color: brown (12/10/23202) Stool Consistency: loose (12/10/23202) Genitourinary Within Defined Limits Comments: Uses urinal Musculoskeletal Assessment Within Defined Limits except for: Musculoskeletal Assessment: Range of Motion: LLE - brace/immobilizer/splint/sling/cast, moderately impaired and amputation RLE - amputation Comments: R TMA prior to admission Integumentary Assessment Within Defined Limits except for: Skin Assessment Integrity - see Avatar LDA documentation Patient Lines/Drains/Airways Status Active LDAs Name Placement date Placement time Site Days Peripheral IV 12/08/23 20 gauge;1 3/4 in length Anterior;Left Forearm 12/08/23 2114 -- 2 Peripheral IV 12/10/23 20 gauge;1 3/4 in length Anterior;Right Forearm 12/10/23 0847 -- less than 1 Wound 11/10/23 Incision Perineum 11/10/23 1707 Perineum 30 Wound 11/10/23 Foot Left 11/10/23 1839 Foot 30 Wound 12/08/23 Groin 12/08/23 1415 Groin 2 Wound 12/10/23 Incision Foot Left 12/10/23 1118 Foot less than 1 Splint/Immobilizer LLE Foot/Ankle - PFS 12/10/23 1141 -- less than 1 Psychosocial Within Defined Limits * Interval Note Provider - Nicola Vasquez MD - 12/10/2023 6:30 PM CDT BRIEF INTERVAL NOTE Narrative: I was paged by the patient's primary team to examine perineal wound. Pt reports that the facility he been doing the dressing changes. Pt denies fever, chills, and perineal pain. On exam open wound ishealing very well. Picture placed in chart. No concerns from surgery team. Continue wet to dry dressing changes daily and after bowel movements. Please feel free to page green surgery team if any concerns about perineal wound. Nicola Vasquez MD, 12/10/2023 6:30 PM PGY-1 Green Surgery Pager: [phone] * Nursing Assessment - May Torres RN - 12/10/2023 6:25 PM CDT Nursing Assessment Head to Toe Head to Toe Assessment Shift Summary Pt s/p I&D with resection, dressings CDI. Denies pain. Gave 2 Nicotine gum twice. HBO treatmentstarts from tomorrow. IV abx given as scheduled. NWB LLE. Groin site dressing changed by surgery team today. BG check, gave insulin today w carbs count. Make needs known. Neurologic/Cognitive Assessment Within Defined Limits except for: Cognition: poor judgement/safety awareness HEENT Within Defined Limits Cardiac Within Defined Limits Respiratory Within defined limits Neurovascular Assessment Within Defined Limits except for: Neurovascular LLE Sensation: Tenderness and sensation decreased Edema Present: Yes Left Lower Extremity: 1+ Gastrointestinal Within Defined Limits Stool Amount: large (12/10/23 0203) Stool Color: brown (12/10/23 0203) Stool Consistency: loose (12/10/23 0203) Genitourinary Within Defined Limits Comments: Uses urinal Musculoskeletal Assessment Within Defined Limits except for: Musculoskeletal Assessment: Range of Motion: LLE - brace/immobilizer/splint/sling/cast, moderately impaired and amputation Integumentary Assessment Within Defined Limits except for: Skin Assessment Integrity - see Avatar LDA documentation Patient Lines/Drains/Airways Status Active LDAs Name Placement date Placement time Site Days Peripheral IV 12/08/23 20 gauge;1 3/4 in length Anterior;Left Forearm 12/08/232113 -- 1 Peripheral IV 12/10/23 20 gauge;1 3/4 in length Anterior;Right Forearm 12/10/23 0847 -- less than 1 Wound 11/10/23 Incision Perineum 11/10/23 1707 Perineum 30 Wound 11/10/23 Foot Left 11/10/23 1839 Foot 29 Wound 12/08/23 Groin 12/08/23 1415 Groin 2 Wound 12/10/23 Incision Foot Left 12/10/23 1118 Foot less than 1 Splint/Immobilizer LLE Foot/Ankle - PFS 12/10/23 1141 -- less than 1 Psychosocial Within Defined Limits * Nursing Assessment - Carmen Tate RN - 12/10/2023 2:53 PM CDT Nursing Assessment Head to Toe Head to Toe Assessment Shift Summary Shift Summary S/p I&D, revision of amputation site. Dsg CDI. Pain meds per JUL. Vital signs stable, room air.Ordered late lunch tray. Groin dsg changed by surgery team around 1500. Reported off to oncoming RN. Continue with daily dsgand as needed if dsg is soiled. Pt is able to turn himself in bed. Using urinal at bedside. No BM this shift. BP 141/69 Pulse 79 Temp 36.1 ??C (96.9 ??F) (Axillary) Resp 20 Ht 1.803 m (5' 11) Wt (!)139.9 kg (308 lb 6.8 oz) SpO2 96% BMI 43.02 kg/m?? Neurologic/Cognitive Assessment Within Defined Limits except for: Cognition: poor judgement/safety awareness HEENT Within Defined Limits Cardiac Within Defined Limits Respiratory Within defined limits Neurovascular Assessment Within Defined Limits except for: Neurovascular LLE Sensation: Tenderness Edema Present: Yes Left Lower Extremity: 1+ Gastrointestinal Within Defined Limits Stool Amount: large (12/10/23202) Stool Color: brown (12/10/23202) Stool Consistency: loose (12/10/23202) Genitourinary Within Defined Limits Musculoskeletal Assessment Within Defined Limits except for: Musculoskeletal Assessment: General Mobility: Moderately impairedJoint Tenderness left - foot Range of Motion: LLE - brace/immobilizer/splint/sling/cast, amputation and moderately impaired RLE - mildly impaired and amputation Integumentary Assessment Within Defined Limits except for: Skin Assessment Integrity - see Avatar LDA documentation 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 Patient Lines/Drains/Airways Status Active LDAs Name Placement date Placement time Site Days Peripheral IV 12/08/23 20 gauge;1 3/4 in length Anterior;Left Forearm 12/08/23 2114 -- 1 Peripheral IV 12/10/23 20 gauge;1 3/4 in length Anterior;Right Forearm 12/10/23 0847 -- less than 1 Wound 11/10/23 Incision Perineum 11/10/23 1707 Perineum 29 Wound 11/10/23 Foot Left 11/10/23 1839 Foot 29 Wound 12/08/23 Groin 12/08/23 1415 Groin 2 Wound 12/10/23 Incision Foot Left 12/10/23 1118 Foot less than 1 Splint/Immobilizer LLE Foot/Ankle - PFS 12/10/23 1141 -- less than 1 Psychosocial Within Defined Limits * Op Note Immediate - Samina Singletary DPM - 12/10/2023 11:06 AM CDT [facility] Immediate Post Operative Note Note written: Day of Surgery Patient Name: Stephanie Low ( ) OR Date: 12/10/2023 0949 Procedure(s) and Anesthesia Type: * REVISION, AMPUTATION SITE, POSSIBLE PARTIAL FOOT AMPUTATION, IRRIGATION AND DEBRIDMENT, POSSIBLE SERIAL PROCEDURES, L LOWER EXTREMITY - Monitored Anesthesia Care Pre-op History and Physical reviewed. Pre-Op Diagnosis Codes: * Other acute osteomyelitis of left foot (CMS/HHS) [M86.172] Post-Op Diagnosis Codes: * Other acute osteomyelitis of left foot (CMS/HHS) [M86.172] Surgeons and Role: * Suzy Patino DPM - Primary * Samina Singletary DPM - Resident - Assisting Antibiotics Administered ceFAZolin (ANCEF) 3 g IVPB Last given: 1056 Frequency: INTRA-OP PRN ONCE MAY REPEAT * Missing tourniquet times found for documented tourniquets in lo * * No LDAs found * * No implants in log * Intraoperative Findings: Bone firm and hard, no acute signs of infection Infection Present at Time of Surgery: No evidence of infection present Operative wound dirty EBL: 25 ml ID Type Source Tests Collected by Time Destination A : 1st metatarsel left foot, cut margin AP Specimen Foot SURGICAL PATHOLOGY Suzy Patino DPM 12/10/2023 1107 Complications: None Samina Singletary DPM 12/10/2023 11:44 * Nursing Assessment - Dwight Smart RN - 12/10/2023 2:12 AM CDT Nursing Assessment Head to Toe Head to Toe Assessment Shift Summary NOC Nursing shift note Patient denies any pain upon assessment, recent demar's gangrene, groin wound dressing with moderate amount of drainage, x 1 large BM and dressing soiled, dressing changed per order, left foot posterior splint with gabriella wrap dressing dry and intact, planned to RTOR today, NPO since midnight, completed pre-op check list, CHG bath done, no acute changes overnight, slept well between care, able tolet needs known, hourly rounding completed 12/09/23 2332, BP:149/58, Temp:36.6 ??C (97.8 ??F), Temp src:Axillary, Pulse:75, Resp:15, SpO2:94 % Dwight Smart RN, 12/10/2023 5:41 AM Neurologic/Cognitive Assessment Within Defined Limits except for: Cognition: poor judgement/safety awareness Orientation: disoriented to time HEENT Within Defined Limits Cardiac Within Defined Limits Respiratory Within defined limits Neurovascular Assessment Within Defined Limits except for: Neurovascular LLE Sensation: Tenderness Edema Present: Yes Left Lower Extremity: 1+ Gastrointestinal Within Defined Limits Stool Amount: large (12/10/23202) Stool Color: brown (12/10/23202) Stool Consistency: loose (12/10/23202) Genitourinary Within Defined Limits Musculoskeletal Assessment Within Defined Limits except for: Musculoskeletal Assessment: General Mobility: Moderately impairedJoint Tenderness left - foot Range of Motion: LLE - brace/immobilizer/splint/sling/cast, amputation and moderately impaired RLE - mildly impaired and amputation Comments: Hx of right TMA, recent left hallux amputation Integumentary Assessment Within Defined Limits except for: Skin Assessment Integrity - see Avatar LDA documentation 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 Patient Lines/Drains/Airways Status Active LDAs Name Placement date Placement time Site Days Peripheral IV 12/08/23 20 gauge;1 3/4 in length Anterior;Left Forearm 12/08/234 -- 1 Wound 11/10/23 Incision Perineum 11/10/23 1707 Perineum 29 Wound 11/10/23 Foot Left 11/10/23 1839 Foot 29 Wound 12/08/23 Groin 12/08/23 1415 Groin 1 Psychosocial Within Defined Limits * Nursing Assessment - Dwight Smart RN - 12/09/2023 5:05 PM CDT Nursing Assessment Head to Toe Head to Toe Assessment Shift Summary Evening Nursing shift note Patient alert and oriented x 4, reported headache 6/10, given PRN Tylenol with partial relief, denies any pain in groin or left foot, groin wound dressing with small amount of drainage, left leg dressing dry and intact, able to turn self in bed, drinking and voiding adequately, no BM this shift, planned to RTOR tomorrow, reinforced NPO status, initiated pre-op check list, CHG bath done, resting between care, able to let needs known, hourly rounding completed 12/09/232011, BP:(!) 155/76, Pulse:66, Resp:18, SpO2:96 % 12/09/231703, BP:(!) 167/80, Temp:36.2 ??C (97.2 ??F), Temp src:Axillary, Pulse:90, Resp:20, SpO2:95 % Dwight Smart RN, 12/09/2023 10:37 PM Neurologic/Cognitive Assessment Within Defined Limits except for: Cognition: poor judgement/safety awareness Orientation: disoriented to time HEENT Within Defined Limits Cardiac Within Defined Limits Respiratory Within defined limits Neurovascular Assessment Within Defined Limits except for: Neurovascular LLE Sensation: Tenderness Gastrointestinal Within Defined Limits Stool Amount: small (12/09/23 1400) Stool Color: brown (12/09/23 1400) Stool Consistency: soft (12/09/23 1400) Genitourinary Within Defined Limits Musculoskeletal Assessment Within Defined Limits except for: Musculoskeletal Assessment: General Mobility: Moderately impairedJoint Tenderness left - foot Range of Motion: LLE - brace/immobilizer/splint/sling/cast, amputation and moderately impaired RLE - mildly impaired and amputation Comments: Hx of right TMA, recent left amp as well Integumentary Assessment Within Defined Limits except for: Skin Assessment Integrity - see Avatar LDA documentation Integrity Location - groin wound and left foot incision Patient Lines/Drains/Airways Status Active LDAs Name Placement date Placement time Site Days Peripheral IV 12/08/23 20 gauge;1 3/4 in length Anterior;Left Forearm 12/08/234 -- less than 1 Wound 11/10/23 Incision Perineum 11/10/23 1707 Perineum 28 Wound 11/10/23 Foot Left 11/10/23 1839 Foot 28 Wound 12/08/23 Groin 12/08/23 1415 Groin 1 Psychosocial Within Defined Limits * Nursing Assessment - Dawood Sargent RN - 12/09/2023 1:40 PM CDT Nursing Assessment Head to Toe Head to Toe Assessment Shift Summary [id number] Alert and oriented x3, unsure of the date. Denies pain. Voiding in urinal, bowel movementin bed hendrickson. Dressing change to groin done after each bowel movement, twice on this shift. Dressing to left foot clean dry and intact. Resting comfortably in bed throughout shift. Neurologic/Cognitive Assessment Within Defined Limits except for: Cognition: poor judgement/safety awareness Orientation: disoriented to time HEENT Within Defined Limits Cardiac Within Defined Limits Respiratory Within defined limits Neurovascular Within Defined Limits Gastrointestinal Within Defined Limits Stool Amount: moderate (12/09/23 1208) Stool Color: brown (12/09/23 1208) Stool Consistency: soft (12/09/23 1208) Genitourinary Within Defined Limits Musculoskeletal Assessment Within Defined Limits except for: Musculoskeletal Assessment: General Mobility: Moderately impairedJoint Tenderness left - foot Range of Motion: LLE - severely impaired and brace/immobilizer/splint/sling/cast Integumentary Assessment Within Defined Limits except for: Skin Assessment Integrity - see Avatar LDA documentation Integrity Location - groin foot Patient Lines/Drains/Airways Status Active LDAs Name Placement date Placement time Site Days Peripheral IV 12/08/23 20 gauge;1 3/4 in length Anterior;Left Forearm 12/08/23 2114 -- less than 1 Wound 11/10/23 Incision Perineum 11/10/23 1707 Perineum 28 Wound 11/10/23 Foot Left 11/10/23 1839 Foot 28 Wound 12/08/23 Groin 12/08/23 1415 Groin less than 1 Psychosocial Within Defined Limits * Nursing Assessment - Aura Richard RN - 12/09/2023 2:26 AM CDT Nursing Assessment Head to Toe Head to Toe Assessment Shift Summary Night [id number] PT is AO x4. Able to make needs known and use call light. Uncertain to get OOB and not confienet tobear WT in RLE dt LLE nonWB status currently. No toes on RLE. LLE intact with padded posterior splint. Had some trouble getting to sleep tonight, said tht room with to hot for him, slept at about 0000. Had temp tonight at 100.8f oral, gave tylenol and provided ice pack, provider aware. IV removed from AC dt pt forgetting to keep arm straight and new IV in forearm. Takes lots of nicotine gum. Usesbedside urinal. Dressing fell off and changed x1. Pain 0-4/10. Neurologic/Cognitive Assessment Within Defined Limits except for: Cognition: poor judgement/safety awareness HEENT Within Defined Limits Cardiac Within Defined Limits Respiratory Within defined limits Neurovascular Within Defined Limits Gastrointestinal Within Defined Limits Genitourinary Within Defined Limits Musculoskeletal Assessment Within Defined Limits except for: Musculoskeletal Assessment: General Mobility: Generalized weakness Range of Motion: LLE - amputation and moderately impaired RLE - amputation and moderately impaired Integumentary Assessment Within Defined Limits except for: Skin Assessment Integrity - see Avatar LDA documentation Patient Lines/Drains/Airways Status Active LDAs Name Placement date Placement time Site Days Peripheral IV 12/08/23 20 gauge;1 3/4 in length Anterior;Left Forearm 12/08/232113 -- less than 1 Wound 11/10/23 Incision Perineum 11/10/23 1707 Perineum 28 Wound 11/10/23 Foot Left 11/10/23 1839 Foot 28 Wound 12/08/23 Groin 12/08/23 1415 Groin less than 1 Psychosocial Within Defined Limits * Nursing Assessment - Aura Richard RN - 12/08/2023 9:41 PM CDT Nursing Assessment Head to Toe Head to Toe Assessment Shift Summary Shift Summary Neurologic/Cognitive Within Defined Limits HEENT Assessment Within Defined Limits except for: Comments: Gets blurry vision when hyperglycemic Cardiac Within Defined Limits Respiratory Within defined limits Neurovascular Within Defined Limits Gastrointestinal Within Defined Limits Genitourinary Within Defined Limits Musculoskeletal Within Defined Limits Integumentary Within Defined Limits Patient Lines/Drains/Airways Status Active LDAs Name Placement date Placement time Site Days Peripheral IV 12/08/23 20 gauge;1 3/4 in length Anterior;Left Forearm 12/08/232113 -- less than 1 Wound 11/10/23 Incision Perineum 11/10/23 1707 Perineum 28 Wound 11/10/23 Foot Left 11/10/23 1839 Foot 28 Wound 12/08/23 Groin 12/08/23 1415 Groin less than 1 Psychosocial Assessment Within Defined Limits except for: Psychosocial Assessment: Family Behavior: attentive to patient and at bedside * Nursing Assessment - Cheryl Dennis RN - 12/08/2023 2:28 PM CDTSummary: 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 A (Assessment) Mental Status: Oriented Mobility: Assist of Two Fall Risk: Yes Wounds/Dressings/Incisions/Skin integrity: See Avatar & Flowsheets. Wound on LLE. Ulcer on coccyx/periarea LInes/Drains: PIV x 1 Medications given during OR & Recovery: See OR & Anaesthesia Report Recent Vital Signs: BP (!) 137/124 Pulse 73 Temp 36.3 ??C (97.3 ??F) (Temporal) Resp 14 SpO2 94% Oxygen: Room Air I&Os: 100% of both breakfast & lunch. R (Recommendations) Radiology/Labs Complete: Yes Pain Scale: No pain Blood sugar: 227 mg/dl Nausea: No Comments: RN: Cheryl Dennis RN Extension #: [id number] * Op Note Immediate - Niraj Lewis DPM - 12/08/2023 7:48 AM CDT [facility] Immediate Post Operative Note Note written: Day of Surgery Patient Name: Stephanie Low ( ) OR Date: 12/08/2023 0735 Procedure(s) and Anesthesia Type: * PARTIAL AMPUTATION FOOT - Monitored Anesthesia Care Pre-op History and Physical reviewed. Pre-Op Diagnosis Codes: * Other acute osteomyelitis of left foot (CMS/HHS) [M86.172] Post-Op Diagnosis Codes: * Other acute osteomyelitis of left foot (CMS/HHS) [M86.172] Surgeons and Role: * Che Palomo DPM - Primary * Niraj Lewis DPM - Resident - Assisting Antibiotics Administered vancomycin (VANCOCIN) 1,500 mg in NaCl 0.9% 500 mL IVPB Last given: 742 Frequency: PERIOP CONTINUOUS * Missing tourniquet times found for documented tourniquets in lo * Total Tourniquet Time Documented: Ankle (Left) - 33 minutes Total: Ankle (Left) - 33 minutes * No LDAs found * * No implants in log * Intraoperative Findings: Open wound to first metatarsal head level. Grossly devitalized tissue in open wound with dishwater drainage present. Good bone quality on osteotomy. Packed open. Infection Present at Time of Surgery: Surgical site contents consistent with active infection Retained devitalized tissue EBL: 5 ml ID Type Source Tests Collected by Time Destination 1 : Deep Soft Tissue Left Foot Tissue Foot ANAEROBE CULTURE, FUNGUS CULTURE:INCLUDES SUHAS, TISSUE CULTURE:INCLUDES GRAM STAIN Che Palomo DPM 12/08/2023 0751 2 : Bone first metatarsal left foot Bone Foot ANAEROBE CULTURE, FUNGUS CULTURE:INCLUDES SUHAS, TISSUECULTURE:INCLUDES GRAM STAIN Che Palomo, CHANGM 12/08/2023 0751 A : Left first metatarsal head, eval cut side for osteomyelitis AP Specimen Foot SURGICAL PATHOLOGYBoChe emery DPM 12/08/2023 0756 Complications: None Niraj Lewis DPM 12/08/2023 08:36 * ED Faculty Note - Eusebio Vivar MD - 12/08/2023 12:16 AM CDT Images from the original note were not included. ED Faculty Attestation and Note Stephanie Low : 1980 Sex: male Patient Arrival Date and Time: 12/07/2023 3:48 PM FACULTY ATTESTATION I Eusebio Vivar MD, personally saw the patient, performed critical or espitia portions of the service, and discussed the care with the resident MDM / ED Course Stephanie Low presented to the emergency department , hx/o DM ,fornier's gangrene, recent toe amputation, presenting with concern for toe osteomyelitis, vss, lactate normla, no concern for sepsis.plan consult podiatry, hospital admission, iv antibiotics, glucose control. IMPRESSION 1. Other acute osteomyelitis of left foot ([facility]/HHS) Eusebio Vivar MD, 12/08/2023 12:16 AM * Interval Note Provider - Shayna Schreiber MD - 12/07/2023 8:53 PM CDT Handoff Communication Note for Hospital Admission Verbal handoff received from Dr. Drummond in [facility]. Patient Class: Inpatient Cardiac Monitoring: Not needed Brief summary of handoff from ED/Clinic Staff: 43 y.o. male with left great toe wound. Recently admitted for Demar's and left great toe with gas - s/p debridement. No gas seen on imaging today. No pain in the perineum today. Seen in podiatry clinic and there was concern for osteomyelitis. Will need further surgical intervention. On vanc zosyn. HDS. IP admit order will be placed in accordance with the patient class designation above. Please page the MOD via [email or web address] with clinical updates or status changes. Note is for documentation only and not for billing purposes. Monique Schreiber MD Hospital Medicine & Emergency Ultrasound 20:54 12/07/2023 * Utilization Management - Olga Galeas RN - 12/07/2023 7:09 PM CDT INITIAL REVIEW Admit: osteo - left foot Rec: IP documented in this encounter Plan of Treatment Scheduled Orders Name Type Priority Associated Diagnoses Orde r Schedule CBC WITH PLATELET Lab Routine Soft tissue infection Expected: 12/26/2023, Expires: 03/13/2024 PANEL HEPATIC FUNCTION Lab Routine Soft tissue infection Expected: 12/26/2023, Expires: 03/13/2024 C-REACTIVE PROTEIN Lab Routine Soft tissue infection Expected: 12/26/2023, Expires: 03/13/2024 CREATININE, SERUM Lab Routine Soft tissue infection Expected: 12/26/2023, Expires: 03/13/2024 Scheduled Referrals Name Type Priority Associated Diagnoses Orde r Schedule REFERRAL TO PHYSICAL THERAPY Referral Routine Soft tissue infection Ordered: 12/12/2023 REFERRAL TO OCCUPATIONAL THERAPY Referral Routine Soft tissue infection Ordered: 12/12/2023 REFERRAL TO BURN/WOUND/LIMB PRESERVATION Referral Routine Soft tissue infection 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HHS) Ordered: 12/14/2023 documented as of this encounter Procedures Procedure Name Priority Date/Time Associated Diagnosis Comments POC GLUCOSE Routine 12/14/2023 11:29 AM CDT [...] CDT Other acute osteomyelitis of left foot ([facility]) REVISION, AMPUTATION SITE, LOWER EXTREMITY Urgent (< 48 hrs) 12/10/2023 10:23 AM CDT Other acute osteomyelitis of left foot (CMS/HHS) POC GLUCOSE Routine 12/10/2023 6:16 AM CDT PC LAB CBC W/DIFF & PLT Routine 12/10/2023 5:06 AM CDT PANEL BASIC METABOLIC (BMP) Routine 12/10/2023 5:06 AM CDT POC GLUCOSE Routine 12/09/2023 9:18 PM CDT VANCOMYCIN LEVEL Timed 12/09/2023 5:56 PM CDT PANEL BASIC METABOLIC (BMP) Routine 12/09/2023 5:56 PM CDT POC GLUCOSE Routine [...] GLYCOSYLATED HGB Routine 12/08/2023 4:47 PM CDT C-REACTIVE PROTEIN Routine 12/08/2023 4: 47 PM CDT PC LAB CBC/PLT Routine 12/08/2023 4:47 PM CDT POC GLUCOSE Routine 12/08/2023 4:20 PM CDT POC GLUCOSE Routine 12/08/2023 12:35 PM CDT POC GLUCOSE Routine 12/08/2023 10:02 AM CDT XR FOOT LEFT 3 V AP/OBL/LAT* STAT 12/08/2023 9:21 AM CDT POC GLUCOSE Routine 12/08/2023 8:32 AM CDT PC SURGICAL PATHOLOGY,GROSS AND MICROSCOPIC;DIAGNOS TIC STAT 12/08/2023 7:56 AM CDT Other acute osteomyelitis of left foot (CMS/HHS) PC CULTURE,BACTERIAL,D EFINITIVE,AEROBIC ANY SOURCE Routine 12/08/2023 7:51 AM CDT PC CULTURE,BACTERIAL,D EFINITIVE,AEROBIC ANY SOURCE Routine 12/08/2023 7:51 AM CDT Other acute osteomyelitis of left foot (CMS/HHS) PC CULTURE FUNGI ISOLATION W-WO PRESUMPTIVE ID SKIN OTH Routine 12/08/2023 7:51 AM CDT PC CULTURE FUNGI ISOLATION W-WO PRESUMPTIVE ID SKIN OTH Routine 12/08/2023 7:51 AM CDT Other acute osteomyelitis of left foot (CMS/HHS) PC CULTURE SPECIMEN, ANAEROBIC Routine 12/08/2023 7:51 AM CDT PC CULTURE SPECIMEN, ANAEROBIC Routine 12/08/2023 7:51 AM CDT Other acute osteomyelitis of left foot (CMS/HHS) POC GLUCOSE Routine 12/08/2023 7:22 AM CDT AMPUTATION FOOT Urgent (< 48 hrs) 12/08/2023 7:12 AM CDT Other acute osteomyelitis of left foot (CMS/HHS) TC LAB BLOOD DRAW BY VENIPUNCTURE Routine 12/07/2023 4:05 PM CDT EXTRA TUBE - BLUE Routine 12/07/2023 4:0 5 PM CDT PC ELECTROLYTES PANEL STAT 12/07/2023 4:05 PM CDT PC LAB CBC W/DIFF & PLT STAT 12/07/2023 4:05 PM CDT SED RATE (ESR) STAT 12/07/2023 4:05 PM CDT PC LACTATE (LACTIC ACID) STAT 12/07/2023 4:05 PM CDT C-REACTIVE PROTEIN STAT 12/07/2023 4: 05 PM CDT PC CULTURE,BACTERIAL,D EFINATIVE,AEROBIC;B LOOD STAT 12/07/2023 4:05 PM CDT documented in this encounter Results * (ABNORMAL) POC GLUCOSE (12/14/2023 11:29 AM CDT) POC Glucose 255(H) 70 - 100 mg/dL [facility] POINT OF CARE Blood 12/14/2023 11:2 9 AM CDT Eusebio Vivar MD LABORATORY Performing Organization Address [facility] de Phone Number [facility] [address] [phone], [place] * (ABNORMAL) POC GLUCOSE (12/14/2023 6:32 AM CDT) POC Glucose 186(H) 70 - 100 mg/dL [facility] POINT OF [facility] Blood 12/14/2023 6:32 AM CDT Eusebio Vviar MD LABORATORY Performing Organization Address [facility] de Phone Number [facility] [address] [place] [address], [place] * (ABNORMAL) POC GLUCOSE (12/13/2023 9:05 PM CDT) POC Glucose 175(H) 70 - 100 mg/dL [facility] Blood 12/13/2023 9:05 PM CDT Eusebio Vivar MD LABORATORY Performing Organization Address [facility] de Phone Number [facility] POINT [facility] [address] [phone], [place] * VANCOMYCIN LEVEL (12/13/2023 5:24 PM CDT) Vancomycin 17.0 mcg/mL [facility] Comment:Expected Range (Trou gh): 10-20 mcg/ml Blood 12/13/2023 5:24 PM CDT 12/13/2023 5:46 PM CDT Narrative [facility] - 12/13/2023 6:34 PM CDT Please ensure trough level drawn prior to next vancomycin dose. Thank you Peak or trough:->Trough Eusebio J Ana PharmD LABORATORY [facility] [address] [place] [phone] * (ABNORMAL) POC GLUCOSE (12/13/2023 4:00 PM CDT) POC Glucose 153(H) 70 - 100 mg/dL [facility] POINT OF CARE Blood 12/13/2023 4:00 PM CDT Eusebio Vivar MD LABORATORY Performing Organization Address City/[facility]/ZIP Co de Phone Number [facility] POINT OF CARE [address] [place] [address], [place] * (ABNORMAL) POC GLUCOSE (12/13/2023 11:47 AM CDT) POC Glucose 271(H) 70 - 100 mg/dL [facility] POINT OF CARE Blood 12/13/2023 11:4 7 AM CDT Eusebio Vivar MD LABORATORY Performing Organization Address [facility] Co de Phone Number [facility] POINT [facility] [address] [place] [address], [place] * (ABNORMAL) POC GLUCOSE (12/13/2023 6:35 AM CDT) POC Glucose 204(H) 70 - 100 mg/dL [facility] POINT OF CARE Blood 12/13/2023 6:35 AM CDT Eusebio Vivar MD LABORATORY Performing Organization Address City/[facility] Co de Phone Number [facility] POINT OF CARE [address] [place] [address], [place] * (ABNORMAL) POC GLUCOSE (12/12/2023 8:54 PM CDT) POC Glucose 170(H) 70 - 100 mg/dL [facility] POINT OF CARE Blood 12/12/2023 8:54 PM CDT Eusebio Vivar MD LABORATORY [facility] POINT OF CARE [address] [place] [address], [place] * (ABNORMAL) POC GLUCOSE (12/12/2023 4:10 PM CDT) POC Glucose 252(H) 70 - 100 mg/dL [facility] POINT OF CARE Blood 12/12/2023 4:10 PM CDT Eusebio Vivar MD LABORATORY Performing Organization Address City/[facility]/ZIP Co de Phone Number [facility] POINT OF CARE [address] [place] [address], [place] * (ABNORMAL) POC GLUCOSE (12/12/2023 11:07 AM CDT) POC Glucose 200(H) 70 - 100 mg/dL [facility] POINT OF CARE Blood 12/12/2023 11:0 7 AM CDT Eusebio Vivar MD LABORATORY Performing Organization Address [facility] Co de Phone Number [facility] POINT [facility] [address] [place] [address], [place] * (ABNORMAL) POC GLUCOSE (12/12/2023 6:42 AM CDT) POC Glucose 185(H) 70 - 100 mg/dL [facility] POINT OF CARE Blood 12/12/2023 6:42 AM CDT Eusebio Vivar MD LABORATORY Performing Organization Address City/[facility]/ZIP Co de Phone Number [facility] POINT OF CARE [address] [place] [address], [place] * (ABNORMAL) POC GLUCOSE (12/11/2023 9:10 PM CDT) POC Glucose 226(H) 70 - 100 mg/dL [facility] POINT OF CARE Blood 12/11/2023 9:10 PM CDT Eusebio Vivar MD LABORATORY [facility] POINT OF CARE [address] [place] [address], * VANCOMYCIN LEVEL (12/11/2023 5:28 PM CDT) Vancomycin 19.6 mcg/mL [facility] Comment:Expected Range (Trou gh): 10-20 mcg/ml Blood 12/11/2023 5:28 PM CDT 12/11/2023 5:37 PM CDT Narrative [facility] - 12/11/2023 6:46 PM CDT Peak or trough:->Trough Igor Glover MD LABORATORY [facility] [address] [place] [address] * (ABNORMAL) POC GLUCOSE (12/11/2023 4:13 PM CDT) POC Glucose 173(H) 70 - 100 mg/dL [facility] POINT OF CARE Blood 12/11/2023 4:13 PM CDT Eusebio Vivar MD LABORATORY Performing Organization Address City/[facility]/ZIP Co de Phone Number [facility] POINT OF CARE [address] [place] [address], [place] * (ABNORMAL) POC GLUCOSE (12/11/2023 11:43 AM CDT) POC Glucose 283(H) 70 - 100 mg/dL [facility] POINT OF CARE Blood 12/11/2023 11:4 3 AM CDT Eusebio Vivar MD LABORATORY [facility] POINT OF CARE [address] [place] [address], [place] * (ABNORMAL) POC GLUCOSE (12/11/2023 10:28 AM CDT) POC Glucose 198(H) 70 - 100 mg/dL [facility] POINT OF CARE Blood 12/11/2023 10:2 8 AM CDT Eusebio Vivar MD LABORATORY Performing Organization Address [facility] Co de Phone Number [facility] POINT OF CARE [address] [place], [place] [phone], * (ABNORMAL) POC GLUCOSE (12/11/2023 6:41 AM CDT) [facility] POC Glucose 173(H) 70 - 100 mg/dL [facility] POINT OF CARE Blood 12/11/2023 6:41 AM CDT Eusebio Vivar MD LABORATORY Performing Organization Address [facility] de Phone Number [facility] POINT OF [facility] [address] [place], [place] [phone], [place] * (ABNORMAL) CBC WITH PLTS/AUTO DIFF (12/11/2023 5:50 AM CDT) [facility] WBC 8.72 4.00 - 10.00 k/cmm [facility] RBC 3.82(L) 4.60 - 6.00 m/cmm [facility] Hgb 10.6(L) 13.1 - 17.5 g/dL [facility] Hematocrit 32.4(L) 40.0 - 51.0 % [facility] MCV 84.8 80.0 - 100.0 fL [facility] MCH 27.7 25.0 - 32.0 pg [facility] MCHC 32.7 31.0 - 36.0 g/dL [facility] RDW 13.5 11.5 - 14.5 % [facility] Plt 400 150 - 400 k/cmm [facility] MPV 9.3 6.5 - 12.5 fL [facility] Automated Abs Neutrophil 4.22 1.70 - 6.50 k/cmm [facility] Comment:Preliminary ANC, Fin al Result to Follow Abs Immature Granulocyte 0.09 0.00 - 0.09 k/cmm [facility] Comment:The Immature Granulo cyte Absolute count contains metamyelocytes and myelocytes. Abs Neutrophil 4.22 1.70 - 6.50 k/cmm [facility] Abs Lymphocyte 2.59 0.80 - 4.00 k/cmm [facility] Abs Monocyte 1.00 0.20 - 1.00 k/cmm [facility] Abs Eosinophil 0.79(H) 0.00 - 0.60 k/cmm [facility] Abs Basophil 0.03 0.00 - 0.20 k/cmm [facility] Blood 12/11/2023 5:50 AM CDT 12/11/2023 6:26 AM CDT Igor Glover MD LABORATORY Performing Organization Address City/[facility]/ZIP Co de Phone Number [facility] [address] [address] * (ABNORMAL) PANEL BASIC METABOLIC (BMP) (12/11/2023 5:50 AM CDT) CO2 25 22 - 30 mmol/L [facility] Glucose 178(H) 70 - 100 mg/dL [facility] BUN 9 6 - 20 mg/dL [facility] Creatinine 0.92 0.70 - 1.25 mg/dL [facility] Calcium 9.0 8.6 - 10.0 mg/dL [facility] Sodium 136 135 - 148 mmol/L [facility] Potassium 4.1 3.5 - 5.3 mmol/L [facility] Chloride 100 92 - 108 mmol/L [facility] eGFR (2020 CKD-EPI) 105 >=60 ml/min/1.7 3m2 [facility] Comment: The estimated glomerular filtration rate (eGFR) was calculated using the CKD-EPI 2020 creatinine equation, which does not include race as a factor. This equation is validated in individuals 18 years of age and older, and eGFR is normalized to a body surface area of 1.73m^2. AnGap 11 8 - 16 mmol/L [facility] Blood 12/11/2023 5:50 AM CDT 12/11/2023 6:25 AM CDT Igor Glover MD LABORATORY Performing Organization Address City/[facility]/ZIP Co de Phone Number [facility] [address] [address] * (ABNORMAL) POC GLUCOSE (12/10/2023 9:03 PM CDT) POC Glucose 206(H) 70 - 100 mg/dL [facility] POINT OF CARE Blood 12/10/2023 9:03 PM CDT Eusebio Vivar MD LABORATORY Performing Organization Address [facility] de Phone Number [facility] POINT OF CARE [address] [place] [address], [place] * (ABNORMAL) POC GLUCOSE (12/10/2023 4:16 PM CDT) POC Glucose 341(H) 70 - 100 mg/dL [facility] POINT OF CARE Blood 12/10/2023 4:16 PM CDT Eusebio Vivar MD LABORATORY Performing Organization Address [facility] de Phone Number [facility] POINT OF [facility] [address] [place] [address], [place] * XR CHEST 2 VIEWS PA + LAT* (12/10/2023 1:34 PM CDT) Anatomical Region Laterality Modality Chest Computed Radiogr aphy 12/10/2023 1:38 PM CDT Impressions 12/10/2023 1:39 PM CDT IMPRESSION: No focal consolidation. Reading Radiologist: Jose Robledo Narrative 12/10/2023 1:39 PM CDT Indication: HBO consult Comparison: None FINDINGS: Cardiac silhouette is normal in size. No focal consolidation, pleural effusion, or pneumothorax. Procedure Note Joes Robledo MD - 12/10/2023 Indication: HBO consult Comparison: None FINDINGS: Cardiac silhouette is normal in size. No focal consolidation,pleural effusion, or pneumothorax. IMPRESSION IMPRESSION: No focal consolidation. Reading Radiologist: Jose Robledo Igor Glover MD RAD XRAY * XR FOOT LEFT 3 V AP/OBL/LAT* (12/10/2023 1:34 PM CDT) Anatomical Region Laterality Modality Foot Computed Radiogr [...] Robledo Igor Glover MD RAD XRAY * (ABNORMAL) POC GLUCOSE (12/10/2023 12:09 PM CDT) POC Glucose 194(H) 70 - 100 mg/dL [facility] POINT OF CARE Blood 12/10/2023 12:0 9 PM CDT Eusebio Vivar MD LABORATORY [facility] POINT OF CARE [address] [place] [address], * SURGICAL PATHOLOGY (12/10/2023 11:07 AM CDT) SURG PATH FINAL ?Surgical Pathology Report Collection Date: ?12/10/2023 11:07 CDT ? Ordering Physician: ? SUZY PATINO Received Date: ?12/10/2023 12:07 CDT ? Accession Number: ? [id number] ? Surgical Pathology Final Report Specimen Type: [...] Signed - Greg Regalado M.D. Attending Pathologist. DDB/DDB 12.10.2023 13:39 [facility] AP Specimen FOOT STRUCTURE / Unknown 12/10/2023 11:07 AM CDT Comment:OR: Routine gross an d microscopic examination Tissue: 1st metatarsel left foot, cut margin Site: foot Additional clinical information: Suzy Patino DPM LAB PATHOLOGY [facility] [address] [place] [address] * (ABNORMAL) POC GLUCOSE (12/10/2023 6:16 AM CDT) POC Glucose 228(H) 70 - 100 mg/dL [facility] POINT OF CARE Blood 12/10/2023 6:16 AM CDT Eusebio Vivar MD LABORATORY [facility] POINT OF CARE [address] [place] [address], * (ABNORMAL) CBC WITH PLTS/AUTO DIFF (12/10/2023 5:06 AM CDT) Pathologist [facility] WBC 8.35 4.00 - 10.00 k/cmm [facility] RBC 3.81(L) 4.60 - 6.00 m/cmm [facility] Hgb 10.3(L) 13.1 - 17.5 g/dL [facility] Hematocrit 32.5(L) 40.0 - 51.0 % [facility] MCV 85.3 80.0 - 100.0 fL [facility] MCH 27.0 25.0 - 32.0 pg [facility] MCHC 31.7 31.0 - 36.0 g/dL [facility] RDW 13.4 11.5 - 14.5 % [facility] Plt 377 150 - 400 k/cmm [facility] MPV 9.4 6.5 - 12.5 fL [facility] Automated Abs Neutrophil 4.14 1.70 - 6.50 k/cmm [facility] Comment:Preliminary ANC, Fin al Result to Follow Abs Immature Granulocyte 0.08 0.00 - 0.09 k/cmm [facility] Comment:The Immature Granulo cyte Absolute count contains metamyelocytes and myelocytes. Abs Neutrophil 4.14 1.70 - 6.50 k/cmm [facility] Abs Lymphocyte 2.39 0.80 - 4.00 k/cmm [facility] Abs Monocyte 1.06(H) 0.20 - 1.00 k/cmm [facility] Abs Eosinophil 0.64(H) 0.00 - 0.60 k/cmm [facility] Abs Basophil 0.04 0.00 - 0.20 k/cmm [facility] Blood 12/10/2023 5:06 AM CDT 12/10/2023 5:40 AM CDT Igor Glover MD LABORATORY Performing Organization Address [facility] Co de Phone Number [facility] [address] [address] * (ABNORMAL) PANEL BASIC METABOLIC (BMP) (12/10/2023 5:06 AM CDT) CO2 26 22 - 30 mmol/L [facility] Glucose 204(H) 70 - 100 mg/dL [facility] BUN 11 6 - 20 mg/dL [facility] Creatinine 0.92 0.70 - 1.25 mg/dL [facility] Calcium 9.0 8.6 - 10.0 mg/dL [facility] Sodium 137 135 - 148 mmol/L [facility] Potassium 4.2 3.5 - 5.3 mmol/L [facility] Chloride 101 92 - 108 mmol/L [facility] eGFR (2020 CKD-EPI) 105 >=60 ml/min/1.7 3m2 [facility] Comment: The estimated glomerular filtration rate (eGFR) was calculated using the CKD-EPI 2020 creatinine equation, which does not include race as a factor. This equation is validated in individuals 18 years of age and older, and eGFR is normalized to a body surface area of 1.73m^2. AnGap 10 8 - 16 mmol/L [facility] Blood 12/10/2023 5:06 AM CDT 12/10/2023 5:40 AM CDT Igor Glover MD LABORATORY Performing Organization Address [facility] Co de Phone Number [facility] [address] [address] * (ABNORMAL) POC GLUCOSE (12/09/2023 9:18 PM CDT) POC Glucose 204(H) 70 - 100 mg/dL [facility] Blood 12/09/2023 9:18 PM CDT Eusebio Vivar MD LABORATORY Performing Organization Address [facility] Co de Phone Number [facility] POINT OF CARE [address] [place] [address], * (ABNORMAL) PANEL BASIC METABOLIC (BMP) (12/09/2023 5:56 PM CDT) Sodium 134(L) 135 - 148 mmol/L [facility] Potassium 4.2 3.5 - 5.3 mmol/L [facility] Chloride 99 92 - 108 mmol/L [facility] CO2 23 22 - 30 mmol/L [facility] AnGap 12 8 - 16 mmol/L [facility] Glucose 246(H) 70 - 100 mg/dL [facility] BUN 13 6 - 20 mg/dL [facility] Creatinine 0.98 0.70 - 1.25 mg/dL [facility] Calcium 8.8 8.6 - 10.0 mg/dL [facility] eGFR (2020 CKD-EPI) 97 >=60 ml/min/1.7 3m2 [facility] Comment: The estimated glomerular filtration rate (eGFR) was calculated using the CKD-EPI 2020 creatinine equation, which does not include race as a factor. This equation is validated in individuals 18 years of age and older, and eGFR is normalized to a body surface area of 1.73m^2. Blood 12/09/2023 5:56 PM CDT 12/09/2023 6:26 PM CDT Igor Glover MD LABORATORY Performing Organization Address City/[facility]/ZIP Co de Phone Number [facility] [address] [address] * VANCOMYCIN LEVEL (12/09/2023 5:56 PM CDT) Vancomycin 22.0 mcg/mL [facility] Comment:Expected Range (Trou gh): 10-20 mcg/ml Blood 12/09/2023 5:56 PM CDT 12/09/2023 6:26 PM CDT Narrative [facility] - 12/09/2023 8:14 PM CDT Peak or trough:->Trough Gwen Gamez PharmD LABORATORY Performing Organization Address [facility] Co de Phone Number [facility] [address] [place] [address] * (ABNORMAL) POC GLUCOSE (12/09/2023 4:08 PM CDT) POC Glucose 231(H) 70 - 100 mg/dL [facility] Blood 12/09/2023 4:08 PM CDT Eusebio Vivar MD LABORATORY Performing Organization Address [facility] de Phone Number [address] [address], [place] * (ABNORMAL) POC GLUCOSE (12/09/2023 11:13 AM CDT) POC Glucose 282(H) 70 - 100 mg/dL [facility] Blood 12/09/2023 11:1 3 AM CDT Eusebio Vivar MD LABORATORY Performing Organization Address [facility] de Phone Number [address] [address], [place] * HBO TCO2 MEASUREMENT COMPLETE (12/09/2023 10:25 [...] Reg 2002; 10:198-207. Bridget QUIÑONEZ et al. [facility] 2009, Vol. 36(1). ? 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 ??Microangiography study was requested to assess baseline microangiopathic disease status and wound healing capability and for surgical planning. Area of focus was left LE. Ingress: Time from ICG injection to First Blush: 15 seconds Time to first blush was appropriate. Max Intensity: Hyper-fluorescence noted in mid to distal derick-wound area. Hypo-fluorescence noted only seen at distal aspect of wound closure at open site with packing. Panning: Adequate fluorescence to the remainder of the foot, including the plantar surface Impression: Inflammatory changes noted in mid-distal derick-wound area. Hypofluorescence as expected at site of open wound distally where packing is in place. Would recommend repeat microangiography in 2 weeks or following future surgical interventions with primary surgical wound closure. David Cortes MD, 12/09/2023 4:15 PM Suzy Shafer PA-C RAD ULT * (ABNORMAL) POC GLUCOSE (12/09/2023 6:43 AM CDT) POC Glucose 198(H) 70 - 100 mg/dL [facility] Blood 12/09/2023 6:43 AM CDT Eusebio Vivar MD LABORATORY Performing Organization Address [facility] Co de Phone Number [facility]ARE [address] [place] [address], * (ABNORMAL) POC GLUCOSE (12/08/2023 9:10 PM CDT) POC Glucose 268(H) 70 - 100 mg/dL [facility] Blood 12/08/2023 9:10 PM CDT Eusebio Vivar MD LABORATORY Performing Organization Address [facility] Co de Phone Number [facility] [address] [place] [address], * (ABNORMAL) SED RATE (ESR) (12/08/2023 4:47 PM CDT) Sed Rate 120(H) 2 - 10 mm/hr [facility] Blood 12/08/2023 4:47 PM CDT 12/08/2023 5:07 PM CDT Suzy Shafer PA-C LABORATORY Performing Organization Address [facility]/ZIP Co de Phone Number [facility] [address] [address] * (ABNORMAL) PANEL BASIC METABOLIC (BMP) (12/08/2023 4:47 PM CDT) Sodium 134(L) 135 - 148 mmol/L [facility] Potassium 4.0 3.5 - 5.3 mmol/L [facility] Chloride 98 92 - 108 mmol/L [facility] CO2 24 22 - 30 mmol/L [facility] AnGap 12 8 - 16 mmol/L [facility] Glucose 247(H) 70 - 100 mg/dL [facility] BUN 16 6 - 20 mg/dL [facility] Creatinine 0.98 0.70 - 1.25 mg/dL [facility] Calcium 8.7 8.6 - 10.0 mg/dL [facility] eGFR (2020 CKD-EPI) 97 >=60 ml/min/1.7 3m2 [facility] Comment: The estimated glomerular filtration rate (eGFR) was calculated using the CKD-EPI 2020 creatinine equation, which does not include race as a factor. This equation is validated in individuals 18 years of age and older, and eGFR is normalized to a body surface area of 1.73m^2. Blood 12/08/2023 4:47 PM CDT 12/08/2023 5:07 PM CDT Suzy Shafer PA-C LABORATORY Performing Organization Address [facility]/ZIP Co de Phone Number [facility] [address] [address] * (ABNORMAL) GLYCOSYLATED HGB - A1C (12/08/2023 4:47 PM CDT) Hemoglobin A1C 8.5(H) 4.0 - 5.6 % [facility] Comment: Increased risk for diabetes (prediabetes): [...] 197(H) 68 - 114 [facility] Comment: The estimated Average Glucose (eAG) was calculated using an equation derived from a study of 507 adults with type 1, type 2, or no diabetes. Minority populations were underrepresented and children were not included. The eAG is not equivalent to a fasting glucose concentration. Blood 12/08/2023 4:47 PM CDT 12/08/2023 5:07 PM CDT Narrative [facility] - 12/08/2023 6:01 PM CDT If not done in the last 30 days. Suzy Shafer PA-C LABORATORY [facility] [address] [address] * (ABNORMAL) CBC WITH PLATELET (12/08/2023 4:47 PM CDT) WBC 10.39(H) 4.00 - 10.00 k/cmm [facility] RBC 3.59(L) 4.60 - 6.00 m/cmm [facility] Hgb 9.8(L) 13.1 - 17.5 g/dL [facility] Hematocrit 30.8(L) 40.0 - 51.0 % [facility] MCV 85.8 80.0 - 100.0 fL [facility] MCH 27.3 25.0 - 32.0 pg [facility] MCHC 31.8 31.0 - 36.0 g/dL [facility] RDW 13.5 11.5 - 14.5 % [facility] Plt 314 150 - 400 k/cmm [facility] MPV 9.3 6.5 - 12.5 fL [facility] Blood 12/08/2023 4:47 PM CDT 12/08/2023 5:07 PM CDT Suzy Shafer PA-C LABORATORY Performing Organization Address City/[facility]/ZIP Co de Phone Number [address] [address] * (ABNORMAL) C-REACTIVE PROTEIN (12/08/2023 4:47 PM CDT) C-Reactive Protein 77(H) <=4 mg/L [facility] Blood 12/08/2023 4:47 PM CDT 12/08/2023 5:07 PM CDT Suzy Shafer PA-C LABORATORY Performing Organization Address [facility] Co de Phone Number [place] [phone] * (ABNORMAL) POC GLUCOSE (12/08/2023 4:20 PM CDT) POC Glucose 204(H) 70 - 100 mg/dL [facility] Blood 12/08/2023 4:20 PM CDT Eusebio Vivar MD LABORATORY Performing Organization Address City/[facility] Co de Phone Number [facility] PO[facility] [place] [address], [place] * (ABNORMAL) POC GLUCOSE (12/08/2023 12:35 PM CDT) POC Glucose 227(H) 70 - 100 mg/dL [facility] Blood 12/08/2023 12:3 5 PM CDT Eusebio Vivar MD LABORATORY Performing Organization Address City/[facility]/ZIP Co de Phone Number [facility] [address] [place] [address], [place] * (ABNORMAL) POC GLUCOSE (12/08/2023 10:02 AM CDT) POC Glucose 263(H) 70 - 100 mg/dL [facility] Blood 12/08/2023 10:0 2 AM CDT Eusebio Vivar MD LABORATORY [facility] [address] [place] [address], * XR FOOT LEFT 3 V AP/OBL/LAT* (12/08/2023 9:21 AM CDT) Anatomical Region Laterality Modality Foot Computed Radiogr aphy 12/08/2023 9:24 AM CDT Impressions 12/08/2023 9:25 AM CDT IMPRESSION: Status post first metatarsal head resection. Reading Radiologist: David Bedoya Narrative 12/08/2023 9:25 AM CDT Technique: XR FOOT LEFT 3 V AP/OBL/LAT* Indication: s/p 1st met head resection ?? Comparison: 12/07/2023 FINDINGS: There has been interval resection of the first tarsal head. Postoperative soft tissue gas is present. No acute complication is demonstrated. Degenerative changes are again seen at the third metatarsophalangeal joint. There is chronic deformity of the distal aspect of the fourth metatarsal. Degenerative changes are present in the midfoot. Procedure Note David Bedoya MD - 12/08/2023 Technique: XR FOOT LEFT 3 V AP/OBL/LAT* Indication: s/p 1st met head resection Comparison: 12/07/2023 FINDINGS: There has been interval resection of the first tarsal head.Postoperative soft tissue gas is present. No acute complication isdemonstrated. Degenerative changes are again seen at the thirdmetatarsophalangeal joint. There is chronic deformity of the distal aspectof the fourth metatarsal. Degenerative changes are present in themidfoot. IMPRESSION IMPRESSION: Status post first metatarsal head resection. Reading Radiologist: David Bedoya Mirta Urena MD RAD XRAY * (ABNORMAL) POC GLUCOSE (12/08/2023 8:32 AM CDT) POC Glucose 214(H) 70 - 100 mg/dL [facility] Blood 12/08/2023 8:32 AM CDT Eusebio Vivar MD LABORATORY [facility] [address] [address], * SURGICAL PATHOLOGY (12/08/2023 7:56 AM CDT) SURG PATH FINAL ?Surgical Pathology Report Collection Date: ?12/08/2023 07:56 CDT ?Ordering Physician: ? CHE PALOMO Received Date: ?12/08/2023 08:41 CDT ?Accession Number: ? [id number] ? Surgical Pathology Final Report Specimen Type: Bone, left first metatarsal head, excision Final Diagnosis: Bone, left first metatarsal head, excision - Bone with acute osteomyelitis. Surgical bone margin with both viable and non-viable bone with patchy acute osteomyelitis. ? Clinical correlation with culture results is recommended. * ??Report Electronically Signed By ??* ?? Tootie Mackenzie MD ?? 12.09.2023 12:52 Clinical History: Clinical Diagnosis: Other acute osteomyelitis of left foot DDB/DDB 12.08.2023 9:52 Gross Description: The specimen is received in formalin, labeled with the patient's name and hospital ID number. The specimen is designated left metatarsal head, evaluate For osteomyelitis and consists of a 3.5 x 2.7 x 1.8 cm white-vu metatarsal head displaying a 1.5 cm in diameter smooth resection site. ??Opposing the resection site is a white, smooth disarticulation site with ??minimal soft tissue adherent. ??Sectioning of the specimen reveals a yellow, trabeculated cut surface. Information Technology Security Analyst sections are submitted following decalcification as follows: A1: Resection margin, en face A2: Full cross-section of metatarsal head (DDB) DDB/DDB 12.08.2023 9:52 Microscopic Description: Microscopic examination performed and findings are reflected in the final diagnosis. I personally examined the relevant preparations and rendered and confirmed the diagnosis. ? Signed - Tootie Mackenzie M.D. Attending Pathologist. DDB/DDB 12.08.2023 9:52 [facility] AP Specimen FOOT STRUCTURE / Unknown 12/08/2023 7:56 AM CDT Comment:OR: Routine gross an d microscopic examination Tissue: Left first metatarsal head Site: left foot Additional clinical information: evaluate cut side for osteomyelitis Che Palomo [facility] PATHOLOGY Performing Organization Address [facility] de Phone Number [address] [address] * FUNGUS CULTURE:INCLUDES SUHAS (12/08/2023 7:51 AM CDT) Final Report No fungus isolated. [facility] SUHAS Prep No fungal elements seen. [facility] Bone STRUCTURE OF LEFT FOOT / Unknown 12/08/2023 7:51 AM CDT 12/08/2023 9:00 AM CDT Comment:2. Bone first metata rsal left foot Che Palomo [facility] MICROBIOLOGY Performing Organization Address [facility] Co de Phone Number [address] [address] * ANAEROBE CULTURE (12/08/2023 7:51 AM CDT) Final Report No anaerobes isolated. [facility] Bone STRUCTURE OF LEFT FOOT / Unknown 12/08/2023 7:51 AM CDT 12/08/2023 9:00 AM CDT Comment:2. Bone first metata rsal left foot Che L Beth [facility] MICROBIOLOGY Performing Organization Address [facility] Co de Phone Number [facility] [address] [address] * (ABNORMAL) TISSUE CULTURE:INCLUDES GRAM STAIN (12/08/2023 7:51 AM CDT) Final Report Positive Culture Few METHICILLIN RESISTANT Staphylococcus aureus (MRSA) isolated. 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 For susceptibility, see previous report on culture from wound culture collected 12/07/23. (POS) [facility] Organism METHICILLIN RESISTANT STAPHYLOCOCCUS AUREUS (MRSA)(POS) [facility] Gram Stain Report Corrected Report Positive Gram stain Rare PMN's seen. Rare gram positive cocci. Gram stain electronically reported to and acknowledged by: Dr. Healy Marker from OR at ??12/08/2023 10:09:09 by Jacklyn Easley MLS. Removed Pleomorphic gram variable bacilli from report. Results electronically reported to and acknowledged by: Dr. Igor Glover [facility] 12/09/2023 12:48:27. Elizabeth Schwartz MLS. (POS) [facility] Bone STRUCTURE OF LEFT FOOT / Unknown 12/08/2023 7:51 AM CDT 12/08/2023 9:00 AM CDT Comment:2. Bone first metata rsal left foot Che Palomo [facility] MICROBIOLOGY Performing Organization Address [facility] Co de Phone Number [facility] [address] [address] * (ABNORMAL) TISSUE CULTURE:INCLUDES GRAM STAIN (12/08/2023 7:51 AM CDT) Final Report Positive Culture Few METHICILLIN RESISTANT Staphylococcus aureus (MRSA) isolated. 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 For susceptibility, see previous report on culture from wound culture collected 12/07/23. Rare Corynebacterium striatum group isolated. A member of the diphtheroid bacilli. (POS) [facility] Organism METHICILLIN RESISTANT STAPHYLOCOCCUS AUREUS (MRSA)(POS) [facility] Organism CORYNEBACTERIUM STRIATUM GROUP(POS) [facility] Gram Stain Report Positive Gram stain Rare PMN's seen. Rare gram positive cocci. Gram stain electronically reported to and acknowledged by: Dr. Healy Marker from OR at ??12/08/2023 10:09:09 by Jacklyn Easley MLS. (POS) [facility] Tissue FOOT STRUCTURE / Unknown 12/08/2023 7:51 AM CDT Comment:Add Aerobic Narrative [facility] - 12/10/2023 2:22 PM CDT Add Aerobic Che Mullent DPM LAB MICROBIOLOGY Performing Organization Address [facility] de Phone Number [address] [address] * FUNGUS CULTURE:INCLUDES SUHAS (12/08/2023 7:51 AM CDT) Final Report No fungus isolated. [facility] SUHAS Prep No fungal elements seen. [facility] Tissue FOOT STRUCTURE / Unknown 12/08/2023 7:51 AM CDT Comment:Add Aerobic Narrative [facility] - 01/05/2024 8:10 AM CDT Add Aerobic Chekatelin Mullent DPM LAB MICROBIOLOGY Performing Organization Address [facility] de Phone Number [facility] [address] [address] * ANAEROBE CULTURE (12/08/2023 7:51 AM CDT) Final Report No anaerobes isolated. [facility] Tissue FOOT STRUCTURE / Unknown 12/08/2023 7:51 AM CDT Comment:Add Aerobic Narrative [facility] - 12/14/2023 9:06 AM CDT Add Aerobic Che L Beth DPM LAB MICROBIOLOGY Performing Organization Address [facility]/State/ZIP Co de Phone Number [facility] [address] [address] * (ABNORMAL) POC GLUCOSE (12/08/2023 7:22 AM CDT) [facility] POC Glucose 236(H) 70 - 100 mg/dL [facility]ARE Blood 12/08/2023 7:22 AM CDT Eusebio Vivar MD LABORATORY Performing Organization Address City/[facility]/ZIP Co de Phone Number [facility] CARE [address] [place] [address], * EXTRA TUBE - BLUE (12/07/2023 4:05 PM CDT) Pathologist [facility] BLUE TUBE [facility] Comment:Blue top(Sodium citr ate) tubes are kept for 3 days from the collection date. Blood 12/07/2023 4:05 PM CDT 12/07/2023 4:24 PM CDT Eusebio Vivar MD LABORATORY Performing Organization Address [facility] Co de Phone Number [facility] [address] [address] * EXTRA TUBE - DARK GREEN (12/07/2023 4:05 PM CDT) [facility] DARK GREEN TUBE Stored [facility] Comment:Dark Green tubes (Li thium Heparin) are stored in the lab for 1 day from the collection date. Blood 12/07/2023 4:05 PM CDT 12/07/2023 4:24 PM CDT Eusebio Vivar MD LABORATORY Performing Organization Address [facility] Co de Phone Number [facility] [address] [address] * (ABNORMAL) ED CHEMISTRY LABS(NA,K,CL,CO2,GLU,CREAT,CA-IONIZED,ANION GAP) (12/07/2023 4:05 PM CDT) [facility] Sodium 139 135 - 148 mmol/L [facility] Chloride 97 92 - 108 mmol/L [facility] AnGap 15 8 - 16 mmol/L [facility] Glucose 284(H) 70 - 100 mg/dL [facility] ICA, Actual 4.89 4.40 - 5.20 mg/dL [facility] ICA, pH Corrected 4.74 4.40 - 5.20 mg/dL [facility] Creatinine 1.26(H) 0.70 - 1.25 mg/dL [facility] BICARB 26 22 - 26 mEq/L [facility] eGFR (2020 CKD-EPI) 72 >=60 ml/min/1.7 3m2 [facility] Comment: The estimated glomerular filtration rate (eGFR) was calculated using the CKD-EPI 2020 creatinine equation, which does not include race as a factor. This equation is validated in individuals 18 years of age and older, and eGFR is normalized to a body surface area of 1.73m^2. Potassium 4.5 3.5 - 5.3 mmol/L [facility] Blood 12/07/2023 4:05 PM CDT 12/07/2023 4:27 PM CDT Eusebio Vivar MD LABORATORY [facility] [address] [place] [address] * (ABNORMAL) CBC WITH PLTS/AUTO DIFF (12/07/2023 4:05 PM CDT) WBC 9.80 4.00 - 10.00 k/cmm [facility] RBC 4.08(L) 4.60 - 6.00 m/cmm [facility] Hgb 11.2(L) 13.1 - 17.5 g/dL [facility] Hematocrit 34.7(L) 40.0 - 51.0 % [facility] MCV 85.0 80.0 - 100.0 fL [facility] MCH 27.5 25.0 - 32.0 pg [facility] MCHC 32.3 31.0 - 36.0 g/dL [facility] RDW 13.7 11.5 - 14.5 % [facility] Plt 324 150 - 400 k/cmm [facility] MPV 9.4 6.5 - 12.5 fL [facility] Automated Abs Neutrophil 5.37 1.70 - 6.50 k/cmm [facility] Comment:Preliminary ANC, Fin al Result to Follow Abs Immature Granulocyte 0.12(H) 0.00 - 0.09 k/cmm [facility] Comment:The Immature Granulo cyte Absolute count contains metamyelocytes and myelocytes. Abs Neutrophil 5.37 1.70 - 6.50 k/cmm [facility] Abs Lymphocyte 2.61 0.80 - 4.00 k/cmm [facility] Abs Monocyte 1.32(H) 0.20 - 1.00 k/cmm [facility] Abs Eosinophil 0.34 0.00 - 0.60 k/cmm [facility] Abs Basophil 0.04 0.00 - 0.20 k/cmm [facility] Blood 12/07/2023 4:05 PM CDT 12/07/2023 4:51 PM CDT Eusebio Vivar MD LABORATORY Performing Organization Address City/[facility] Co de Phone Number [address] [address] * LACTATE (LACTIC ACID) (12/07/2023 4:05 PM CDT) Pathologist [facility] Lactate 2.1 0.7 - 2.1 mmol/L [facility] Blood 12/07/2023 4:05 PM CDT 12/07/2023 4:27 PM CDT Narrative [facility] - 12/07/2023 4:27 PM CDT Send specimen on ice! Eusebio Vivar MD LABORATORY [address] [address] * (ABNORMAL) C-REACTIVE PROTEIN (12/07/2023 4:05 PM CDT) C-Reactive Protein 82(H) <=4 mg/L [facility] Blood 12/07/2023 4:05 PM CDT 12/07/2023 4:51 PM CDT Eusebio Vivar MD LABORATORY Performing Organization Address [facility] Co de Phone Number [facility] [address] [address] * (ABNORMAL) SED RATE (ESR) (12/07/2023 4:05 PM CDT) Sed Rate 120(H) 2 - 10 mm/hr [facility] Blood 12/07/2023 4:05 PM CDT 12/07/2023 4:51 PM CDT Eusebio Vivar MD LABORATORY Performing Organization Address [facility] Co de Phone Number [address] [address] * BLOOD AEROBIC/ANAEROBIC CULTURE (12/07/2023 4:05 PM CDT) Final Report No growth after 5 days. 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 Soft tissue infection Unspecified infectious and parasitic diseases documented in this encounter Admitting Diagnoses Diagnosis Other acute osteomyelitis of left foot (CMS/HHS) documented in this encounter Administered Medications Inactive Administered Medications - up to 3 most recent administrations Medication Order MAR Action Action Date Dose Rate Site acetaminophen (TYLENOL) tablet 650 mg 650 mg, Oral, Q6H PRN, Starting on Wed12/08/23 at 0819, Until Wed12/14/23 at 1538, Headache, Temp > 38.6 C, Mild Pain (Use First) Given 12/14/2023 11:45 AM CDT 650 mg Given 12/13/2023 2:04 PM CDT 650 mg Given 12/13/2023 10:08 AM CDT 650 mg acetaminophen (TYLENOL) tablet 650 mg 650 mg, Oral, ONE TIME, 1 dose, On Wed12/08/23 at 0215 Given 12/08/2023 2:41 AM CDT 650 mg amLODIPine (NORVASC) tablet 10 mg 10 mg, Oral, DAILY, First dose on Wed12/08/23 at 0820, Until Discontinued Given 12/14/2023 10:35 AM CDT 10 mg Given 12/13/2023 10:09 AM CDT 10 mg Given 12/12/2023 9:21 AM CDT 10 mg cyclobenzaprine (FLEXERIL) tablet 10 mg 10 mg, Oral, TID, First dose on Wed12/12/23 at 1015, Until Discontinued Given 12/14/2023 10:36 AM CDT 10 mg Given 12/13/2023 8:15 PM CDT 10 mg Given 12/13/2023 2:04 PM CDT 10 mg DC MED REC REVIEW BY PHARMACY Discharge Date: 12/12/2023, Discharge Location: Subacute Rehab, Anticipated Discharge Time: After 2 pm, Discharge Medication Orders: DC Med Orders Final, Does not apply, PROTOCOL, Starting on Wed12/12/23 at 1005, Until Wed12/14/23 at 1538 enoxaparin (LOVENOX) 40 mg/0.4 mL injection 40 mg 40 mg, Subcutaneous, Q12H, First dose on Wed12/11/23 at 2000, Until Discontinued Given 12/14/2023 10:36 AM CDT 40 mg Left Lower Quadrant Abdomen Given 12/13/2023 8:14 PM CDT 40 mg Ri ght Upper Arm Given 12/13/2023 10:07 AM CDT 40 mg A bdominal Tissue escitalopram (LEXAPRO) tablet 20 mg 20 mg, Oral, BEDTIME, First dose on Wed12/08/23 at 2000, Until Discontinued Given 12/13/2023 8:15 PM CDT 20 mg Given 12/12/2023 9:03 PM CDT 20 mg Given 12/11/2023 9:01 PM CDT 20 mg heparin 5000 UNIT/0.5ML injection 5,000 UNITS 5,000 UNITS, Subcutaneous, Q 8H, First dose on Wed12/09/23 at 0600, Until Discontinued Given 12/10/2023 6:12 AM CDT 5,000 UNITS Left Upper Arm Given 12/09/2023 10:23 PM CDT 5,000 UNITS Left Upper Arm Given 12/09/2023 3:13 PM CDT 5,000 UNITS R ight Lower Quadrant Abdomen HYDROmorphone PF (DILAUDID) 1 mg/mL injection 0.4 mg 0.4 mg, IV Push, PACU PRN Q5MIN, 5 doses, Starting on Wed12/08/23 at 0819, Until Wed12/08/23 at 1424, Severe Pain (Use First) Given 12/08/2023 9:22 AM CDT 0.4 mg insulin ASPART (NovoLOG) FlexPen Insulin Order Mode: Carb Based Dose, WITH Breakfast dose (Units/Carb Choice): 2, WITH Noon meal dose (Units/Carb Choice): 2, WITH Evening meal dose (Units/Carb Choice): 2, Glucose 130-150 (Units): 0, Glucose 151-200 (Units): 2, Glucose 201-250 (Units): 4, Glucose 251-300 (Units): 6, Glucose 301-350 (Units): 8, Glucose 351-400 (Units): 10, Glucose 401-500 (Units): 12, Glucose GREATER THAN 501 (Units): 14, Glucose GREATER THAN 501 instructions: Call provider, Subcutaneous, TID AC, First dose on Wed12/08/23 at 0820, Until Discontinued Given 12/14/2023 11:46 AM CDT 14 UNITS Left Lower Quadrant Abdomen Given 12/13/2023 5:30 PM CDT 12 UNITS Ab dominal Tissue Given 12/13/2023 12:09 PM CDT 16 UNITS A bdominal Tissue insulin GLARGINE (LANTUS) 25 UNITS injection vial 25 UNITS, Subcutaneous, Q24H, First dose (after last modification) on Wed12/09/23 at 0800, Until Discontinued Given 12/10/2023 8:21 AM CDT 25 UNITS Abdominal Tissue Given 12/09/2023 8:29 AM CDT 25 UNITS Le ft Lower Quadrant Abdomen insulin GLARGINE (LANTUS) 30 UNITS injection vial 30 UNITS, Subcutaneous, Q24H, First dose (after last modification) on 12/11/23 at 0800, Until Discontinued Given 12/12/2023 9:17 AM CDT 30 UNITS Abdominal Tissue Given 12/11/2023 12:45 PM CDT 30 UNITS L eft Upper Arm insulin GLARGINE (LANTUS) 33 UNITS injection vial 33 UNITS, Subcutaneous, Q24H, First dose (after last modification) on 12/13/23 at 0800, Until Discontinued Given 12/14/2023 10:36 AM CDT 33 UNITS Right Lower Quadrant Abdomen Given 12/13/2023 10:10 AM CDT 33 UNITS A bdominal Tissue loratadine (CLARITIN) tablet 10 mg 10 mg, Oral, DAILY, First dose on Wed12/09/23 at 0800, Until Discontinued Given 12/14/2023 10:36 AM CDT 10 mg Given 12/13/2023 10:08 AM CDT 10 mg Given 12/12/2023 9:21 AM CDT 10 mg nicotine (NICOTROL) 14 mg/ 24hr daily 1 patch 1 patch, Transdermal, DAILY, First dose on Wed12/07/23 at 1940, Until Discontinued Patch applied 12/14/2023 10:36 AM CDT 1 patch Left Arm Patch applied 12/13/2023 10:11 AM CDT 1 patch Left Arm Patch applied 12/12/2023 9:24 AM CDT 1 patch Right Arm nicotine polacrilex (NICORELIEF) gum 2 mg 2 mg, Gum, ONE TIME, 1 dose, On Wed12/07/23 at 1940 Given 12/07/2023 8:34 PM CDT 2 mg nicotine polacrilex (NICORELIEF) gum 2 mg 2 mg, Gum, ONE TIME, 1 dose, On Wed12/07/23 at 2215 Given 12/08/2023 2:09 AM CDT 2 mg nicotine polacrilex (NICORELIEF) gum 2 mg 2 mg, Gum, Q1H PRN, Starting on Wed12/08/23 at 0819, Until Wed12/14/23 at 1538, Nicotine Craving (Use First) Given 12/12/2023 6:45 PM CDT 2 mg Given 12/12/2023 5:03 PM CDT 2 mg Given 12/12/2023 3:46 PM CDT 2 mg normal saline flush 0.9 % solution 10 mL 10 mL, IV Push, Q5 MIN PRN, Starting on Wed12/09/23 at 1610, Until Wed12/14/23 at 1538, IV Line Flush Given 12/10/2023 6:12 AM CDT 10 mL Given 12/10/2023 12:26 AM CDT 10 mL Given 12/09/2023 6:20 PM CDT 10 mL oxyCODONE (ROXICODONE) tablet 5-10 mg 5-10 mg, Oral, Q4H PRN, Starting on Wed12/08/23 at 0905, Until Wed12/14/23 at 1538, Moderate Pain (Use First) Given 12/14/2023 11:45 AM CDT 10 mg Given 12/13/2023 10:08 AM CDT 10 mg Given 12/12/2023 12:27 AM CDT 10 mg piperacillin-tazobactam (ZOSYN) 4.5 g in NaCl 0.9% IVPB 4.5 g, Indication (Select One): Infection - Suspected, SITE (Select all that apply): Skin/Soft Tissue, Cultures Ordered? Yes, Intravenous, Q6H, First dose on Wed12/07/23 at 1805, Until Discontinued New Bag 12/11/2023 9:11 PM CDT 4.5 g 240 mL /hr New Bag 12/11/2023 4:33 PM CDT 4.5 g 240 mL/hr New Bag 12/11/2023 10:43 AM CDT 4.5 g 240 mL/hr prazosin (MINIPRESS) capsule 1 mg 1 mg, Oral, BEDTIME, First dose on Wed12/08/23 at 2000, Until Discontinued Given 12/13/2023 8:15 PM CDT 1 mg Given 12/12/2023 9:03 PM CDT 1 mg Given 12/11/2023 9:01 PM CDT 1 mg rosuvastatin (CRESTOR) tablet 10 mg 10 mg, Oral, BEDTIME, First dose on Wed12/08/23 at 2000, Until Discontinued Given 12/13/2023 8:15 PM CDT 10 mg Given 12/12/2023 9:04 PM CDT 10 mg Given 12/11/2023 9:01 PM CDT 10 mg traZODone (DESYREL) tablet 50 mg 50 mg, Oral, BEDTIME, First dose on Wed12/08/23 at 2000, Until Discontinued Given 12/13/2023 8:15 PM CDT 50 mg Given 12/12/2023 9:03 PM CDT 50 mg Given 12/11/2023 9:01 PM CDT 50 mg vancomycin (VANCOCIN) 1,250 mg in NaCl 0.9% 250 mL IVPB 1,250 mg, Indication (Select One): Infection - Confirmed, SITE (Select all that apply): Skin/Soft Tissue, Cultures Ordered? Yes, Dose By? Phamacist to Dose, Intravenous, Q12H, First dose (after last modification) on Wed12/12/23 at 0600, Until Discontinued New Bag 12/14/2023 5:23 AM CDT 1,250 mg 175 mL/hr New 12/13/2023 5:59 PM CDT 1,250 mg 175 mL/hr New 12/13/2023 5:56 AM CDT 1,250 mg 175 mL/hr vancomycin (VANCOCIN) 1,500 mg in NaCl 0.9% 500 mL IVPB 1,500 mg (rounded from 1,399 mg = 10 mg/kg ? 139.9 kg), Indication (Select One): Infection - Suspected, SITE (Select all that apply): Skin/Soft Tissue, Cultures Ordered? No, Dose By? Phamacist to Dose, Intravenous, Q12H, First dose (after last modification) on Wed12/10/23 at 0600, Until Discontinued New Bag 12/11/2023 5:56 PM CDT 1,500 mg 257.5 mL/hr New 12/11/2023 5:40 AM CDT 1,500 mg 257.5 mL/hr New 12/10/2023 6:54 PM CDT 1,500 mg 257.5 mL/hr vancomycin (VANCOCIN) 2,000 mg in NaCl 0.9% 500 mL IVPB 2,000 mg (rounded from 2,098.5 mg = 15 mg/kg ? 139.9 kg), Indication (Select One): Infection - Suspected, SITE (Select all that apply): Skin/Soft Tissue, Cultures Ordered? No, Dose By? Phamacist to Dose, Intravenous, Q12H, First dose on Wed12/08/23 at 1800, Until Discontinued New 12/09/2023 7:03 PM CDT 2,000 mg 208 mL/hr New 12/09/2023 6:45 AM CDT 2,000 mg 208 mL/hr 12/08/2023 9:26 PM CDT 2,000 mg 208 mL/hr vancomycin (VANCOCIN) 3,000 mg in NaCl 0.9% IVPB 3,000 mg (rounded from 3,572.5 mg = 25 mg/kg ? 142.9 kg Order-specific weight), Dose By? Phamacist to Dose, Indication (Select One): Infection - Suspected, SITE (Select all that apply): Skin/Soft Tissue, Bone/Joint, Cultures Ordered? No, Intravenous, ONE TIME, 1 dose, On Wed12/07/23 at 1755 12/07/2023 7:08 PM CDT 3,000 mg 200 mL/h r vancomycin (VANCOCIN) 500 mg in NaCl 0.9% 250 mL IVPB 500 mg, Indication (Select One): Infection - Suspected, SITE (Select all that apply): Skin/Soft Tissue, Cultures Ordered? No, Dose By? Phamacist to Dose, Intravenous, ONE TIME, 1 dose, On Wed12/08/23 at 0955 12/08/2023 10:01 AM CDT 500 mg 170 mL/hr documented in this encounter Active and Recently Administered Medications Times are shown in CDT. Scheduled Medication Order 12/12/2023 12/13/2023 12/14/2023 amLODIPine (NORVASC) tablet 10 mg 10 mg, Oral, DAILY, First dose on Wed12/08/23 at 0820, Until Discontinued 0921 (Given - Provider: Sravani Rosado RN) 0916 (Delayed (keeps Due time) - Provider: Natasha Vivar RN - Reason: Patient not in room - Comment: HBO)1009 (Given - Provider: Natasha Vivar, SABINE) 1035 (Given - Provider: Dawood Sargent RN) cyclobenzaprine (FLEXERIL) tablet 10 mg 10 mg, Oral, TID, First dose on Wed12/12/23 at 1015, Until Discontinued 1233 (Given - Provider: Sravani Rosado RN)1545 (Given - Provider: Sravani Rosado, RN)2107 (Given - Provider: Susie Matson, RN) 0917 (Delayed (keeps Due time) - Provider: Natasha Vivar RN - Reason: Patient not in room - Comment: HBO)1008 (Given - Provider: Natasha Vivar RN)1404 (Given - Provider: Natasha Vivar, SABINE)2014 (Given - Provider: Kate Sarmiento, SABINE) 1036 (Given - Provider: Dawood Sargent, SABINE) DC MED REC REVIEW BY PHARMACY(Linked Group 1) Discharge Date: 12/12/2023, Discharge Location: Subacute Rehab, Anticipated Discharge Time: After 2 pm, Discharge Medication Orders: DC Med Orders Final, Does not apply, PROTOCOL, Starting on Wed12/12/23 at 1005, Until Wed12/14/23 at 1538 enoxaparin (LOVENOX) 40 mg/0.4 mL injection 40 mg 40 mg, Subcutaneous, Q12H, First dose on Wed12/11/23 at 2000, Until Discontinued 09 (Given - Provider: Sravani Rosado RN)2102 (Given - Provider: Susie Matson, SABINE) 0917 (Delayed (keeps Due time) - Provider: Natasha Vivar RN - Reason: Patient not in room - Comment: HBO)1007 (Given - Provider: Natasha Vivar RN)2013 (Given - Provider: Kate Sarmiento, SABINE) 1036 (Given - Provider: Dawood Sargent, SABINE) escitalopram (LEXAPRO) tablet 20 mg 20 mg, Oral, BEDTIME, First dose on Wed12/08/23 at 2000, Until Discontinued 2102 (Given - Provider: Susie Matson, SABINE) 2014 (Given - Provider: Kate Sarmiento, SABINE) insulin ASPART (NovoLOG) FlexPen Insulin Order Mode: Carb Based Dose, WITH Breakfast dose (Units/Carb Choice): 2, WITH Noon meal dose (Units/Carb Choice): 2, WITH Evening meal dose (Units/Carb Choice): 2, Glucose 130-150 (Units): 0, Glucose 151-200 (Units): 2, Glucose 201-250 (Units): 4, Glucose 251-300 (Units): 6, Glucose 301-350 (Units): 8, Glucose 351-400 (Units): 10, Glucose 401-500 (Units): 12, Glucose GREATER THAN 501 (Units): 14, Glucose GREATER THAN 501 instructions: Call provider, Subcutaneous, TID AC, First dose on Wed12/08/23 at 0820, Until Discontinued 0911 (Dual Sign-Off - Provider: Laura Sarabia RN)0917 (Given - Provider: Sravani Rosado RN)1227 (Dual Sign-Off - Provider: Sravani Rosado RN)1233 (Given - Provider: Sravani Rosado RN)1705 (Dual Sign-Off - Provider: Sravani Rosado RN)1709 (Given - Provider: Sravani Rosado RN) 0918 (Delayed (keeps Due time) - Provider: Natasha Vivar RN - Reason: Patient not in room - Comment: HBO)1003 (Dual Sign-Off - Provider: Natasha Vivar RN)1010 (Given - Provider: Natasha Vivar RN)1205 (Dual Sign-Off - Provider: Natsaha Vivar RN)1209 (Given - Provider: Natasha Vivar RN)1725 (Dual Sign-Off - Provider: Jose Antonio Kendall RN)1730 (Given - Provider: Natasha Vivar RN) 0800 (Not Given (removes Due time) - Provider: Dawood Sargent RN - Reason: Patient not in room)1143 (Dual Sign-Off - Provider: Igor Eli RN)1146 (Given - Provider: Dawood Sargent RN) insulin ASPART (NovoLOG) FlexPen Glucose 201-250 (Units): 0, Glucose 251-300 (Units): 0, Glucose 301-350 (Units): 0, Glucose 351-400 (Units): 3, Glucose 401-450 (Units): 4, Glucose 451-500 (Units): 5, Glucose GREATER THAN 501 (Units): 6, Glucose GREATER THAN 501 instructions: Call provider, Subcutaneous, BEDTIME MAY REPEAT ONCE, First dose on Wed12/08/23 at 2100, Until Discontinued 2106 (Not Given (removes Due time) - Provider: Susie Matson RN - Reason: Per protocol) 2129 (Not Given (removes Due time) - Provider: Kate Sarmiento RN - Reason: Per protocol) insulin GLARGINE (LANTUS) 30 UNITS injection vial (CANCELED) 30 UNITS, Subcutaneous, Q24H, First dose (after last modification) on 12/11/23 at 0800, Until Discontinued 0911 (Dual Sign-Off - Provider: Laura Sarabia RN)0917 (Given - Provider: Sravani Rosado RN) insulin GLARGINE (LANTUS) 33 UNITS injection vial 33 UNITS, Subcutaneous, Q24H, First dose (after last modification) on 12/13/23 at 0800, Until Discontinued 0919 (Delayed (keeps Due time) - Provider: Natasha Vivar RN - Reason: Patient not in room - Comment: HBO)1003 (Dual Sign-Off - Provider: Natasha Vivar RN)1010 (Given - Provider: Natasha Vivar RN) 1029 (Dual Sign-Off - Provider: Dawood Sargetn RN)1036 (Given - Provider: Dawood Sargent RN) loratadine (CLARITIN) tablet 10 mg 10 mg, Oral, DAILY, First dose on Wed12/09/23 at 0800, Until Discontinued 0921 (Given - Provider: Sravani Rosado RN) 0919 (Delayed (keeps Due time) - Provider: Natasha Vivar RN - Reason: Patient not in room - Comment: HBO)1008 (Given - Provider: Natasha Vivar RN) 1036 (Given - Provider: Dawood Sargent RN) nicotine (NICOTROL) 14 mg/ 24hr daily 1 patch 1 patch, Transdermal, DAILY, First dose on Wed12/07/23 at 1940, Until Discontinued 09 (Patch removed - Provider: Sravani Rosado RN)0924 (Patch applied - Provider: Sravani Rosado RN) 0920 (Delayed (keeps Due time) - Provider: Natasha Vivar RN - Reason: Patient not in room - Comment: HBO)1007 (Patch removed - Provider: Natasha Vivar RN)1011 (Patch applied - Provider: Natasha Vivar RN) 1035 (Patch removed - Provider: Dawood Sargent RN)1036 (Patch applied - Provider: Dawood Sargent RN)1238 (Due: Patch removed - Provider: JENNIFER NARAYANAN, [facility] - Comment: Time automatically adjusted from order being discontinued) prazosin (MINIPRESS) capsule 1 mg 1 mg, Oral, BEDTIME, First dose on Wed12/08/23 at 2000, Until Discontinued 2102 (Given - Provider: Susie Matson RN) 2014 (Given - Provider: Kate Sarmiento, SABINE) rosuvastatin (CRESTOR) tablet 10 mg 10 mg, Oral, BEDTIME, First dose on Wed12/08/23 at 2000, Until Discontinued 2103 (Given - Provider: Susie Matson RN) 2014 (Given - Provider: Kate Sarmiento, SABINE) traZODone (DESYREL) tablet 50 mg 50 mg, Oral, BEDTIME, First dose on Wed12/08/23 at 1999, Until Discontinued 2102 (Given - Provider: Susie Matson RN) 2014 (Given - Provider: Kate Sarmiento RN) vancomycin (VANCOCIN) 1,250 mg in NaCl 0.9% 250 mL IVPB 1,250 mg, Indication (Select One): Infection - Confirmed, SITE (Select all that apply): Skin/Soft Tissue, Cultures Ordered? Yes, Dose By? Phamacist to Dose, Intravenous, Q12H, First dose (after last modification) on Wed12/12/23 at 0600, Until Discontinued 0610 (New Bag - Provider: Susie Matson RN)0740 (Infusion completed - Provider: Sravani Rosado RN)1843 (New Bag - Provider: Dawood Sargent RN)2030 (Infusion completed - Provider: Susie Matson RN) 0556 (New Bag - Provider: Susie Matson RN)0920 (Infusion completed - Provider: Natasha Vivar, SABINE)1759 (New Bag - Provider: Natasha Vivar, SABINE)1930 (Infusion completed - Provider: Kate Sarmiento RN) 0523 (New Bag - Provider: Kate Sarmiento RN)0735 (Infusion completed - Provider: Dawood Sargent RN) PRN Medication Order 12/12/2023 12/13/2023 12/14/2023 acetaminophen (TYLENOL) tablet 650 mg 650 mg, Oral, Q6H PRN, Starting on Wed12/08/23 at 0819, Until Wed12/14/23 at 1538, Headache, Temp > 38.6 C, Mild Pain (Use First) 0921 (Given - Provider: Sravani Rosado RN)2112 (Given - Provider: Susie Matson, RN) 0916 (Delayed (keeps Due time) - Provider: Natasha Vivar RN - Reason: Patient not in room - Comment: HBO)1008 (Given - Provider: Natasha Vivar RN)1404 (Given - Provider: Natasha Vivar RN) 1145 (Given - Provider: Dawood Sargent, SABINE) nicotine polacrilex (NICORELIEF) gum 2 mg 2 mg, Gum, Q1H PRN, Starting on Wed12/08/23 at 0819, Until Wed12/14/23 at 1538, Nicotine Craving (Use First) 1029 (Given - Provider: Sravani Rosado RN)1234 (Given - Provider: Sravani Rosado RN)1546 (Given - Provider: Sravani Rosado RN)1703 (Given - Provider: Sravani Rosado RN)1845 (Given - Provider: Dawood Sargent RN) normal saline flush 0.9 % solution 10 mL 10 mL, IV Push, Q5 MIN PRN, Starting on Wed12/09/23 at 1610, Until Wed12/14/23 at 1538, IV Line Flush ondansetron (ZOFRAN) tablet 4 mg 4 mg, Oral, Q6H PRN, Starting on Wed12/08/23 at 0819, Until Wed12/14/23 at 1538, Nausea/Vomiting (Use First) oxyCODONE (ROXICODONE) tablet 5-10 mg 5-10 mg, Oral, Q4H PRN, Starting on Wed12/08/23 at 0905, Until Wed12/14/23 at 1538, Moderate Pain (Use First) 0027 (Given - Provider: Susie Matson, RN) 0920 (Delayed (keeps Due time) - Provider: Natasha Vivar RN - Reason: Patient not in room - Comment: HBO)1008 (Given - Provider: Natasha Vivar, RN) 1145 (Given - Provider: Dawood Sargent RN) Linked Groups Order Group 1: DC MED REC REVIEW BY PHARMACYJump to med Discharge Date: 12/12/2023, Discharge Location: Subacute Rehab, Anticipated Discharge Time: After 2 pm, Discharge Medication Orders: DC Med Orders Final, Does not apply, PROTOCOL, Starting on Wed12/12/23 at 1005, Until Wed12/14/23 at 1538 And Discharge Med Rec Final Review by Pharmacy (COMPLETED) Routine, Order to be placed by provider after medications have been entered for discharge and are ready for review by Pharmacist. This order can be placed multiple times if changes or additions have been made to medications for discharge. Choose the Preliminary DC Med Rec review when placing orders prior to the day of discharge. Choose Final DC Med Rec when all medication changes have been entered. If DC Med Rec needed now, please page the Pharmacist covering the patient to inform them., Discharge Date: 12/12/2023, Discharge Location: Subacute Rehab, Anticipated Discharge Time: After 2 pm documented in this encounter Additional Health Concerns Infection Onset Date Last Indicated Resolved Time 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
--- OUTSIDE RECORDS SUMMARY | 2024-02-07 08:48 | XMS_ITS | Encounter Summary ---
Author Organization [facility] Address [address] [place] [address] Phone Care Team Providers Care High Worker Name Role Phone Unavailable Primary Care Provider Unavailabl e Reason for Visit * Reason Onset Date Comments Follow-up 12/14/2023 Encounter Details Date Type Department Care Team (Late st Contact Info) Description 12/14/2023 Telephone [facility] [id number] [place], [place] [id number] Aretha Damon MD [address] [place], [place] [id number] Follow-up Social History Tobacco Use Types Packs/Day Years [...] encounter Miscellaneous Notes * Telephone Encounter - Aretha Damon MD - 12/14/2023 5:53 PM CDT Pt's 2nd bone pathology from additional resection on 12/10/23 shows clean margins, suggesting he may only need 14 days of oral linezolid rather than 28. Ok to stop linezolid on 12/23/23. Will notify who is seeing pt back in follow-up on 12/17/23. Also called pt to notify him. Aretha Damon MD, 12/14/2023 5:54 PM Surgical pathology on 12/10/23: Final Diagnosis: Bone, 1st metatarsal left foot, biopsy - Benign bone. Negative for osteomyelitis. * Report Electronically Signed By * Greg Regalado MD 12.14.2023 10:24 documented in this encounter Plan of Treatment Not on file documented as of this encounter Visit Diagnoses Not on filedocumented in this encounter Additional Health Concerns Infection Onset Date Last Indicated Resolved Time 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
--- OUTSIDE RECORDS SUMMARY | 2024-02-07 08:48 | XMS_ITS | Encounter Summary ---
Author Organization [facility] Address [address] [place] [id number] Phone Care Team Providers Care Order Analyst Name Role Phone Unavailable Primary Care Provider Unavailabl e Reason for Visit * Reason Comments Follow-up Encounter Details Date Type Department Care Team (Late st Contact Info) Description 12/17/2023 1:45 PM CDT [facility] [address] [address] Afshan Sims, DPMore[place] [address] [id number] S/P foot surgery, right (Primary Dx) Discharge [...] Sign Reading Time Taken Comments Blood Pressure 134/80 12/17/2023 1:35 PM CDT Pulse 83 12/17/2023 1:35 PM CDT Temperature - - Respiratory Rate - - Oxygen Saturation - - Inhaled Oxygen Concentration - - Weight - - Height - - Body Mass Index - - documented in this encounter Patient Instructions * Patient Instructions* Afshan Sims DPM - 12/17/2023 1:45 PM CDT You can stop your antibiotic (Linezolid) on 12/22 documented in this encounter Progress Notes * Cristino Pool CMA - 12/17/2023 1:45 PM CDT Wound care D: Here for wound care. Location: Left foot. A: Exam per provider. Dressing applied: Betadine,4x4,archana,cast pads,splint,and gabriella wrap toe to knee. R: Patient tolerated procedure well. P: As ordered by provider. Cristino Pool CMA, 12/17/2023 2:05 PM * Afshan Sims DPM - 12/17/2023 1:45 PM CDT Images from the original note were not included. 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 End date was provided in patient's AVS as well as facility paperwork Return to clinic 1 week for nurse visit for dressing change, 2 weeks with provider likely suture removal at that time Chief Complaint and History of Present Illness: Stephanie Low is a 43 y.o. male is presenting to the podiatric surgery clinic for s/p above procedure. Doing well. Pain well controlled. Reports compliance with nonweightbearing in splint. Has no questions or concerns today. Physical Exam: Vitals: 12/17/23 1335 BP: 134/80 Cuff Location: Left Arm Patient Position: Sitting Cuff Size: Adult - large Pulse: 83 Estimated body mass index is 43.02 kg/m?? [...] in place. No evidence of the dehiscence Mild serosanguineous drainage to the distal portion of the incision Erythema and edema present consistent with post op course. No evidence of CRPS. Good perfusion to flap with no evidence of ischemic changes Musculoskeletal: Palpatory tenderness minimally present upon exam Status post partial first ray amputation, right foot Afshan Sims DPM, 12/20/2023 2:38 PM documented in this encounter Plan of Treatment Not on file documented as of this encounter Visit Diagnoses Diagnosis S/P foot surgery, right- Primary documented in this encounter Additional Health Concerns Infection Onset Date Last Indicated Resolved Time 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
--- OUTSIDE RECORDS SUMMARY | 2024-02-07 08:48 | XMS_ITS | Encounter Summary ---
Author Organization [facility] Address [address] [place] [phone] Phone Care Team Providers Care Configuration Management Advisor Name Role Phone Unavailable Primary Care Provider Unavailabl e Encounter Details Date Type Department Care Team (Latest Contact Info) Description 12/17/2023 Travel Social History Tobacco Use Types Packs/Day [...]
--- OUTSIDE RECORDS SUMMARY | 2024-02-07 08:49 | XMS_ITS | Encounter Summary ---
Author Organization [facility] Address [address] [place] [address] Phone Care Team Providers Care Cardiac Care Unit Nurse Name Role Phone Unavailable Primary Care Provider Unavailabl e Reason for Visit * Auth/Cert (Routine) Specialty Diagnoses / Procedures Referred By Katherine tidwell Referred To Contact SURGERY Diagnoses Other acute osteomyelitis of left foot ([facility]) Eusebio Vivar MD [address] [place] [address] Or P4 [address] [place] [address] Referral ID Status Reason Start Date Expiration Date Visits Re quested Visits Authorized [id number] 1 1 Encounter Details Date Type Department Care Team (Late st Contact Info) Description 12/10/2023 9:49 AM CDT - 12/10/2023 11:34 AM CDT Surgery OR P4 [address] [place] [address] Suzy Patino DPM [address] [phone] REVISION, AMPUTATION SITE, POSSIBLE PARTIAL FOOT AMPUTATION, IRRIGATION AND DEBRIDMENT, POSSIBLE SERIAL PROCEDURES, L LOWER EXTREMITY Social History Tobacco Use Types Packs/Day Years [...] Sign Reading Time Taken Comments Blood Pressure 145/69 12/10/2023 7:00 AM CDT Pulse 72 12/10/2023 7:00 AM CDT Temperature 36.9 ??C (98.4 ??F) 12/10/2023 7:00 AM CD T Respiratory Rate 16 12/10/2023 7:00 AM CDT Oxygen Saturation 94% 12/10/2023 7:00 AM CDT Inhaled Oxygen Concentration - - [...] on discharge due to cost/transport issues at [place]. HOSPITAL COURSE BY PROBLEM: Acute osteomyelitis of [...] 12/12 - discussed with PharmD. HTN: Continue TIMEKEEPER amlodipine. Hyperlipidemia: Continue TIMEKEEPER rosuvastatin. Tobacco use disorder: Continue NRT. Hx of TBI. Malnutrition Weight: (!) 139.9 kg (308 lb 6.8 oz) Wt Change from Previous: 0 Kg Wt Change from Admit: 0 Kg % Wt Change from Adm: 0 % [place] Body Wt (IBW) Male (kg): 75.3 kg [...] Comments: Fax to Dr. Aretha Damon at [phone] PANEL HEPATIC FUNCTION Standing Status: Future Standing Exp. Date: 03/13/24 Order Comments: Fax to Dr. Aretha Damon at [phone] Scheduling Instructions: Hepatic Function Panel includes: Albumin, Alk Phos, ALT, AST, Direct Bilirubin, Total Bilirubin and Total Protein C-REACTIVE PROTEIN Standing Status: Future Standing Exp. Date: 03/13/24 Order Comments: Fax to Dr. Aretha Damon at [phone] CREATININE, SERUM Standing Status: Future Standing Exp. Date: 03/13/24 Order Comments: Fax to Dr. Aretha Damon at [phone] Referral to Physical Therapy Referral Priority: Routine [...] of plan of care? Yes Okay for [facility] standing orders? Order Specific Question Answer Comments OK for [facility] house standing orders? Yes Give Mantoux unless current or contraindicated. Scheduling Instructions: Please specify in comments! Resume previous standing orders per fpc policy Order Comments: Resume previous standing orders per [facility]pc policy Scheduling Instructions: Please specify in comments! [...] equipment/supplies recommended: None Final discharge destination: Subacute fpc with rehab care R: The patient and [...] hesitate to call the Hyperbaric Department at [phone] during clinic hours or page perfusionist staff with any updates, questions, or concerns. [...] Date VANCOMYCIN 17.0 12/13/2023 (most recent) Eusebio Perez PharmD 12/13/2023 21:07 Pager: ([employer]) * Emily Hannah RN - 12/13/2023 1:07 PM CDTSummary: Discharge planning Clinical Coordinator Update Patient is medically ready for discharge back to [facility]- since 12/11. Spoke to Tabatha at [facility] today ([phone]) who reported that the patient was not on a bed hold but they are happy to have him return. They don't have a bed for him until tomorrow so the ride was changed to tomorrow at noon. They cannot accommodate HBO for the patient. Emliy Hannah RN, 12/13/2023 1:10PM * Deon Suárez - 12/13/2023 8:55 AM CDT Transportation set for patient as follows: Date and time () of patient departure: 12/13/2023 @1530 Destination: [address] [place] [address] Type of ride: wheelchair Transportation vendor of ride: [facility] [phone] * If this ride needs to be [...] Clinical Coordinators will be informed via a [employer] page. PCS form was completed in Progress [...] infection Attending provider: Igor Glover MD Insurance: [facility] Secondary insurance: [employer] Height: Height: 180.3 cm (5' [...] hesitate to call the Hyperbaric Department at [phone] during clinic hours or page perfusionist staff with any updates, questions, or concerns. [...] 12/12 - discussed with PharmD. HTN: Continue TIMEKEEPER amlodipine. Hyperlipidemia: Continue TIMEKEEPER rosuvastatin. Tobacco use disorder: Continue NRT. Hx of TBI. FEN: Regular consistent carb diet. Code status: Full code. VTE prophylaxis: VTE prophylaxis with lovenox to start 12/10. Lines: No central line. No mujica. Discharge planning: Discharg to [facility] in [place] when they're able to accept him back.Possibly [...] Glover MD, 12/12/2023 2:02 PM Page via [employer] * Narcisa Tobar BARYTES GRINDER - 12/12/2023 9:50 AM CDT . Care Management Follow-up Note Patient Name: Stephanie Low Date: 12/12/2023 Patient/Family Discharge Goals: Patient's Discharge Goal: back to [facility] Discharge Goal: n/a Discharge Destination Expected Discharge [...] Selected Services Address Phone Fax Patient Preferred [facility] Pending - No Request Sent N/A [id number] [facility] [phone] -- Narcisa Tobar LGSW, 12/12/2023 9:50 AM * Aretha Damon MD - 12/12/2023 8:53 AM CDT ID PROGRESS NOTE Stephanie Low 1980 male [id number] ASSESSMENT: MRSA left foot osteomyelitis S/p I&D [...] 12/12 - discussed with PharmD. HTN: Continue TIMEKEEPER amlodipine. Hyperlipidemia: Continue TIMEKEEPER rosuvastatin. Tobacco use disorder: Continue NRT. Hx of TBI. FEN: Regular consistent carb diet. Code status: Full code. VTE prophylaxis: VTE prophylaxis with lovenox to start 12/10. Lines: No central line. No mujica. Discharge planning: Discharg to [facility] in [place] when they're able to accept him back.Possibly [...] Glover MD, 12/11/2023 7:34 PM Page via [employer] * Eusebio Perez, PharmD - 12/11/2023 3:38 [...] Date VANCOMYCIN 19.6 12/11/2023 (most recent) Eusebio Perez PharmD 12/11/2023 19:22 Pager: ([employer]) * Lizbeth Cavazos LICSW - 12/11/2023 2:41 PM CDT Weekend Inpatient Social Work Note Summary: Weekend SW paged by bedside RN to help facilitate coordination back to TCU today. GARY called Cruz Aguiar and left a voicemail. Many barriers are at play for a weekend return - patient hasIV antibiotics, he is recommended to receive 20 HBO sessions (1st today), and has [facility] Medicare Advantage (which requires prior authorization). GARY advised this likely cannot be resolved during the weekend due to the barriers listed above. Follow up needed: GARY will try to problem solve if Cruz Aguiar calls back, if not weekday team to follow up on plan for discharge. RAJ Cadena LICSW Inpatient Mobile Developer - Casual (weekends only) Available via [employer] Lizbeth Cavazos LICSW, 12/11/2023 2:41 PM Addendum [id number]: GARY received update from attending physician sharing that if HBO is a barrier, it could be discontinued, and IV abx can be switched to PO for discharge. Lizbeth Cavazos LICSW, 12/11/2023 3:59 PM * Kit Mcconnell MD - 12/11/2023 8:20 AM CDT Hyperbaric Oxygen Treatment Note Stephanie Low Date: 12/11/2023 Treatment Indication(s): Non healing diabetic [...] hesitate to call the Hyperbaric Department at [phone] during clinic hours or page perfusionist staff with any updates, questions, or concerns. Associated attestation - Nikolai Martinez MD - 12/11/2023 10:05 AM CDT Continuous attending physician supervision was provided throughout the hyperbaric oxygen treatment. I have reviewed and agree with the treatment note created by Fellow: Kit Mcconnell MD. * Suzy Patino, DPM - 12/11/2023 7:10 AM CDT Images from [...] Schizophrenia History of TBI --Patient is own [facility] RECOMMENDATIONS: 1. Dressing: Dressed with Betadine 4 [...] continue to follow while admitted. Please page perfusionist resident with questions. Patient was discussed with perfusionist staff Interval history: Patient seen and evaluated [...] response to normal Erika oxygen. Ana M Aranda DPM, 12/11/2023 7:10 AM Surgery Discharge Milestones (Inpatient Primary Team only): FACULTY NOTE TP note (GC): Resident only post op check. I discussed with the resident and agree with the resident???s findings and plan documented in the resident???s note. Any revisions by me are documented. Suzy Patino DPM, 12/13/2023 8:47 AM * Igor Glover MD - 12/10/2023 2:18 PM CDT [...] 12/12 - discussed with PharmD. HTN: Continue TIMEKEEPER amlodipine. Hyperlipidemia: Continue TIMEKEEPER rosuvastatin. Tobacco use disorder: Continue NRT. Hx of TBI. FEN: Regular consistent carb diet. Code status: Full code. VTE prophylaxis: VTE prophylaxis with lovenox to start 12/10. Lines: No central line. No mujica. 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 Denise Esteves Inpatient Clinical Coordinator [facility] Office: [phone] * Suzy Patino DPM - 12/10/2023 8:42 [...] Schizophrenia History of TBI --Patient is own [facility] RECOMMENDATIONS: 1. Dressing: Dressed in OR with [...] continue to follow while admitted. Please page perfusionist resident with questions. Patient was discussed with perfusionist staff Interval history: Patient seen resting comfortably [...] 12/12 - discussed with PharmD. HTN: Continue TIMEKEEPER amlodipine. Hyperlipidemia: Continue TIMEKEEPER rosuvastatin. Tobacco use disorder: Continue NRT. Hx of TBI. FEN: Regular consistent carb diet. Code status: Full code. VTE prophylaxis: VTE prophylaxis with hep to start 12/08. Lines: No central line. No mujica. 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 [...] Glover MD, 12/09/2023 10:33 PM Page via [employer] * David Mancuso, PharmD - 12/09/2023 3:54 [...] 12/09/2023 Expected DC Date: 12/10/2023 Social Information Finish Machine Tender Used: None needed Decision Maker at Admission: Self Living Situation: penitentiary (see comment) Patient Identified Support System: sister, significant other Services Receiving: Waivered services (see comment) Complex Medical Needs: Other (see comment) (wound care) Transportation Used for Discharge: stretcher Safety Concerns: None Behavioral Health Concerns: None Patient Family Goals Patient's Discharge Goal: back to [facility] Family's Discharge Goal: n/a Plan/Interventions Expected Discharge Disposition: [facility] Patient Information Verification Verified demographic information, including SSN, Next of Kin, and Guardianship: Yes Verified PCP: Yes If post-acute placement is needed, have vaccination status needs been addressed?: Not applicable Risks for Readmission: None Summary of pertinent information: Patient admitted from [facility] with concern for a left great to osteomyelitis that was resected 12/07. 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 Have a call out to [facility] to confirm bed hold ([phone]). Spoke to staff at his [facility] ([place] [phone]) to also update and confirm that he can return there when ultimately. Patient currently has started on HBO, this may be problematic with returning to [facility]. Emily Hannah RN, 12/09/2023 1:49 PM * [...] Schizophrenia History of TBI --Patient is own [facility] RECOMMENDATIONS: 1. Dressing: Dressed with Vashe soaked [...] continue to follow while inpatient Please page perfusionist resident with questions. Patient was discussed with perfusionist staff Interval history: Patient seen and evaluated [...] Schizophrenia History of TBI --Patient is own [facility] RECOMMENDATIONS: 1. Dressing: Dressed in operating room [...] continue to follow while inpatient Please page perfusionist resident with questions. Patient was seen with perfusionist staff, Dr. Palomo Interval history: Patient is [...] male D: Stephanie Low was admitted to [address] from PACU at 1446 for Other acute osteomyelitis of leftfoot ([facility]) . Patient: alert, oriented to person, place [...] informed of Patient Valuables and Belongings Policy (#[id number]): Policy reviewed - patient/family/designee has indicated that [...] 12/12 - discussed with PharmD. HTN: Continue TIMEKEEPER amlodipine. Hyperlipidemia: Continue TIMEKEEPER rosuvastatin. Tobacco use disorder: Continue NRT. Hx of TBI. FEN: Regular consistent carb diet. Code status: Full code. VTE prophylaxis: VTE prophylaxis with hep to start 12/08. Lines: No central line. No mujica. 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 [...] BP Temp Temp src Pulse Resp SpO2 12/08/23 0830 -- (P) 36.3 ??C (97.3 ??F) (P) TEMPORAL -- -- -- 12/08/23 0722 -- 36.7 ??C (98.1 ??F) TEMPORAL -- -- -- 12/08/23 0618 157/81 -- -- 61 14 96 % 12/08/23 0400 125/79 -- -- 70 14 (!) 92 % 12/08/23 0036 148/78 -- -- 82 16 95 % 12/07/23 2222 141/72 -- -- 82 -- 94 % 12/07/232019 185/93 -- -- 83 16 94 % [...] 4 mg IV Push pacu prn q5min Craly Jordan MD Or ondansetron (ZOFRAN ODT) disintegrating [...] 0.9% IVPB 4.5 g Intravenous q6h Jf Santacruz PharmD Infusion completed at 12/08/23 0240 nicotine (NICOTROL) [...] Subcutaneous intra-op prn once may repeat Rex aVldes APRN, CRNA 30 UNITS at 12/08/23 0729 [...] -F/up cultures currently in process -NPO at DC, holding VTE ppx -AM BMP, CBC, CRP, ESR Chronic / Stable / Resolved / Ruled Out #T2DM: A1c 6.8% 07/2023. Reduce TIMEKEEPER lantus to 15 U while NPO, Novolog 1U/CHO + LDSSI. Rechecking A1c. #HTN: TIMEKEEPER amlodipine 10 mg daily #HLD: TIMEKEEPER statin #Paranoid schizophrenia: TIMEKEEPER prazosin #HILL: TIMEKEEPER escitalopram 20 mg daily #Tobacco use disorder: [...] including pre-visit review of separately obtained history, xvio-pk-bpyu interaction performing medically appropriate physical exam, patientcounseling/education, [...] from the original note were not included. [facility] follow up: Green Surgery has made recommendations. [facility] will defer to surgery and sign off. 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 Discharge [...] wound healing. Message sent to primary team. [facility] Nursing follow up: Appreciate the opportunity to consult on this patient, Wound Ostomy Continence Services will sign off at this time. Please place additional 'Wound Consult' if wanting further assessment for this patient. Staff to continue to follow skin injury bundle. Escalate concerns to WOCN through additional consult or to the provider when barriers are identified. WOCN available Wednesday through Wednesday on [employer] or [phone] [facility] Nursing attempts to see patients in person when possible, but will at times complete a chart/media review in order to recommend wound treatment in a timely manner. Please reconsult [facility] if wound condition changes or the current [...] on service at PharmD General Weekend [employer] ([place]) or [phone]. If no response within needed timeframe, please contact central pharmacy via phone at [phone]. Planned discharge medications are: Medication List Medications [...] NEW CONSULT NOTE Stephanie Low 1980 male [id number] REASON FOR CONSULT: I was asked to [...] Prior to recent hospitalization pt lived at [facility] with elevator. Was independent with mobility SUBJECTIVE [...] bearing restrictions, otherwise bed to chair only TIMEKEEPER Appropriate: No (more OR) Participated in goal setting and treatment planning: Patient Agrees with goals and treatment plan: Question patient's ability to understand. Gracia Arredondo, PT 12/10/2023 Pager: [employer] PT Department * David Cortes MD - 12/09/2023 9:58 AM CDT Images from the original note were not included. [facility] HYPERBARIC MEDICINE CONSULTATION Referring clinician: Che Palomo [...] old poorly controlled DMII male referred to [facility] Hyperbaric medical team for consultation regarding concern [...] Other acute osteomyelitis of left foot (CMS/HHS) Past Surgical History: Procedure Laterality Date TOE [...] Hyperbaric Medicine to [facility] a [facility]. Please do not hesitate to call the department at [phone] during clinic hours ([phone]) or page the perfusionist HYPERBARIC staff with any questions or concerns. [...] you for allowing us to participate in [facility] care. [facility] for Hyperbaric Medicine: [phone]. David Cortes MD * Angela Cardenas CWOCN - 12/08/2023 3:00 PM CDTAssociated Order(s): CONSULT TO WOUND NURSE Images from the original note were not included. [facility] Nursing consulted by nursing for perineal wounds. 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 Discharge [...] wound healing. Message sent to primary team. [facility] Nursing follow up: later this week after surgery sees Staff to continue to follow skin injury bundle. Escalate concerns to WOCN through additional consult or to the provider when barriers are identified. WOCN available Wednesday through Wednesday on [employer] or [phone] [facility] Nursing attempts to see patients in person when possible, but will at times complete a chart/media review in order to recommend wound treatment in a timely manner. Please reconsult WO if wound condition changes or the current treatment is thought to be no longerappropriate. Angela aCrdenas CWOCN, 12/08/2023 3:05 PM * Che Palomo [...] Schizophrenia History of TBI --Patient is own [facility] RECOMMENDATIONS: 1. Dressing: Daily dressing changes with [...] continue to follow while inpatient Please page perfusionist resident with questions. Patient was seen with perfusionist staff, Dr. Palomo CHIEF COMPLAINT: Left foot [...] OR Date: 12/10/2023 Surgeon: Suzy Patino DPM Wardrobe Specialty Worker(s): Samina Singletary DPM PGY3 Pre-Op Diagnosis: Packed [...] The patient left the Operating Room to thePA (Postanesthesia Care Unit) with stable vital signs [...] 1980 Sex: male Surgeon: Che Palomo DPM Wardrobe Specialty Worker(s): Niraj Lewis DPM PGY-3 Jf Sky, MS-4 Pre-Op Diagnosis: Acute osteomyelitis of the [...] to medicine Patient signed out by Gabriela Mclain PA-C. Please see their note for more [...] the OR for ongoing evaluation and management. aGle Peoples PA-C, 12/07/2023 11:26 PM * Alena [...] 2023 2242 Started nicotine gum PRN Started TIMEKEEPER glargine and lispro The patient remained in the emergency department through the end of my shift. Their care was signedout [id number] with the oncoming provider. Dx, DDx, Assessment and Plan was discussed with Attending Emergency Medicine Physician. Final Clinical Impression 1. Other acute osteomyelitis of left foot ([facility]) Disposition and Plan Signed out to oncoming [...] in real time. Please contact me via [employer] staff message if you note any errors requiring clarification. * Farida Beyer RN - 12/07/2023 7:41 PM CDT Assumed care of pt. SNF director here as pt was reported missing when he did not return back from the clinic. Plan for admission with OR tomorrow. NPO at midnight, pt aware. * Allyssa Drummond MD - 12/07/2023 4:25 PM CDT Emergency Department Physician Note [facility] HISTORY Stephanie Low is a 43 y.o. [...] 1. Other acute osteomyelitis of left foot ([facility]) DISPOSITION & PLAN Patient remained in the emergency department through the end of my shift. Their care was signed outto oncoming ED provider: DALE Mclain with the following plan: OR in AM with podiatry Allyssa Drummond MD, 12/09/2023 1:39 PM Resident Physician (PGY-3) documented in this encounter Miscellaneous Notes * Nursing Assessment - Dawodo Sargent RN - 12/14/2023 11:05 AM CDT Nursing Assessment Head to Toe Head to Toe Assessment Shift Summary [id number] Alert and oriented x3, unsure of the date. Denies pain. Morning aspart not given, went tohbo before breakfast. Dressing to groin changed per order. Resting comfortably in bed. Neurologic/Cognitive Assessment Within Defined Limits except for: Cognition: poor attention/concentration HEENT Within Defined Limits Cardiac Within Defined Limits Respiratory Within defined limits Neurovascular Within Defined Limits Gastrointestinal Within Defined Limits Stool (unmeasured): 1 (12/12/23 001) Stool Amount: large (12/10/23 0203) Stool Color: [...] Quiet/withdrawn * Discharge non-MD/non-MIRI Summaries - Gracia Arredondo, PT - 12/14/2023 9:38 AM CDT Physical Therapy Inpatient Discharge Summary Stephanie Low [id number] Diagnosis Patient Active Problem List Diagnosis Four[place]iers [...] to Toe Assessment Shift Summary Shift Summary [id number] Pt alert oriented and able to make [...] Toe Head to Toe Assessment Shift Summary [id number] Daily dressing change done per order, reported [...] Resp: 16 Temp: 36.4 ??C (97.6 ??F)Natasha Vivar RN, 12/13/2023 6:45 PM Neurologic/Cognitive Within Defined Limits [...] Toe Head to Toe Assessment Shift Summary [id number] Alert and oriented x 4, able to [...] brown (12/12/23 0018) Stool Consistency: formed (12/12/23 001) Genitourinary Within Defined Limits Musculoskeletal Assessment Within [...] 3/4 in length Anterior;Left Forearm 12/08/234 -- 4 Peripheral IV 12/10/23 20 gauge;1 [...] Defined Limits * Nursing Assessment - Susie Matson RN - 12/13/2023 6:31 AM CDT Nursing Assessment Head to Toe Head to Toe Assessment Shift Summary [id number] Patient is alert and oriented x 4,RA.Vitals [...] Defined Limits * Nursing Assessment - Sravani Rosado, SABINE - 12/12/2023 6:50 PM CDT Nursing Assessment [...] Stool Color: brown (12/12/2317) Stool Consistency: formed (12/12/23 001) Genitourinary Within Defined Limits Musculoskeletal Assessment Within Defined Limits except for: Musculoskeletal Assessment: Range of Motion: LLE - brace/immobilizer/splint/sling/cast and amputation RLE - amputation Comments: R amputation TIMEKEEPER Integumentary Assessment Within Defined Limits except for: [...] Defined Limits * Nursing Assessment - Susie Matson RN - 12/12/2023 6:18 AM CDT Nursing Assessment Head to Toe Head to Toe Assessment Shift Summary [id number] Patient is alert and oriented x 4,RA.Vitals [...] Calls appropriately.Pt slept well.Continue to monitor.Filed Vitals: 12/12/238 BP: 138/73 Pulse: 72 Resp: Temp: 36.6 [...] 3/4 in length Anterior;Left Forearm 12/08/234 -- 2 Peripheral IV 12/10/23 20 gauge;1 [...] Defined Limits * Nursing Assessment - May Torres, SABINE - 12/11/2023 6:28 AM CDT Nursing Assessment [...] Within Defined Limits Stool Amount: large (12/10/23 020) Stool Color: brown (12/10/23202) Stool Consistency: loose [...] 12/10/2023 6:30 PM PGY-1 [facility] Pager: [phone] * Nursing Assessment - May Torres RN [...] Singletary DPM - 12/10/2023 11:06 AM CDT [facility] Immediate Post Operative Note Note written: Day [...] alert and oriented x 4, reported headache /, given PRN Tylenol with partial relief, denies [...] Toe Head to Toe Assessment Shift Summary [id number] Alert and oriented x3, unsure of the [...] less than 1 Wound 11/10/23 Incision Perineum 11/10/237 Perineum 28 Wound 11/10/23 Foot Left 11/10/23 1839 Foot 28 Wound 12/08/23 Groin 12/08/23 1415 Groin less than 1 Psychosocial Within Defined Limits * Nursing Assessment - Aura Richard RN - 12/09/2023 2:26 AM CDT Nursing Assessment Head to Toe Head to Toe Assessment Shift Summary Night [id number] PT is AO x4. Able to make [...] less than 1 Wound 11/10/23 Incision Perineum 11/10/237 Perineum 28 Wound 11/10/23 Foot Left 11/10/23 [...] Dennis RN - 12/08/2023 2:28 PM CDTSummary: EMERGENCY VEHICLE OPERATIONS INSTRUCTORproduct transfer pumper PACU to IP Nursing Handoff Note S [...] Comments: RN: Cheryl Dennis RN Extension #: [id number] * Op Note Immediate - Niraj Lewis DPM - 12/08/2023 7:48 AM CDT [facility] Immediate Post Operative Note Note written: Day [...] CULTURE, FUNGUS CULTURE:INCLUDES SUHAS, TISSUECULTURE:INCLUDES GRAM STAIN Beth Che Torres DPM 12/08/2023 0751 A : Left first metatarsal head, eval cut side for osteomyelitis AP Specimen Foot SURGICAL PATHOLOGYBethChe DPM 12/08/2023 0756 Complications: None Niraj Lewis [...] 1. Other acute osteomyelitis of left foot ([facility]) Eusebio Vivar MD, 12/08/2023 12:16 AM * Interval Note Provider - Shayna Schreiber MD - 12/07/2023 8:53 PM CDT Handoff Communication Note for Hospital Admission Verbal handoff received from Dr. Drummond in [facility]. Patient Class: Inpatient Cardiac Monitoring: Not needed [...] designation above. Please page the MOD via [employer] with clinical updates or status changes. Note [...] CDT Other acute osteomyelitis of left foot ([facility]) REVISION, AMPUTATION SITE, LOWER EXTREMITY [...] CDT Other acute osteomyelitis of left foot ([facility]) PC CULTURE,BACTERIAL,D EFINITIVE,AEROBIC ANY SOURCE Routine 12/08/2023 7:51 AM CDT PC CULTURE,BACTERIAL,D EFINITIVE,AEROBIC ANY SOURCE Routine 12/08/2023 7:51 AM CDT Other acute osteomyelitis of left foot ([facility]) PC CULTURE FUNGI ISOLATION W-WO PRESUMPTIVE ID SKIN OTH Routine 12/08/2023 7:51 AM CDT PC CULTURE FUNGI ISOLATION W-WO PRESUMPTIVE ID SKIN OTH Routine 12/08/2023 7:51 AM CDT Other acute osteomyelitis of left foot (CMS/[facility]) PC CULTURE SPECIMEN, ANAEROBIC Routine 12/08/2023 7:51 AM CDT PC CULTURE SPECIMEN, ANAEROBIC Routine 12/08/2023 7:51 AM CDT Other acute osteomyelitis of left foot ([facility]) POC GLUCOSE Routine 12/08/2023 7:22 AM CDT TC LAB BLOOD DRAW BY [...] POC Glucose 255(H) 70 - 100 mg/dL [facility] CARE Blood 12/14/2023 11:2 9 AM CDT Eusebio Vivar MD LABORATORY [facility]ARE [address] [place] [address], * (ABNORMAL) POC GLUCOSE (12/14/2023 6:32 AM CDT) POC Glucose 186(H) 70 - 100 mg/dL [facility] POINT OF CARE Blood 12/14/2023 6:32 AM CDT Eusebio Vivar MD LABORATORY Performing Organization Address [facility] de Phone Number [facility] [place] [address], * (ABNORMAL) POC GLUCOSE (12/13/2023 9:05 PM CDT) POC Glucose 175(H) 70 - 100 mg/dL [facility] Blood 12/13/2023 9:05 PM CDT Eusebio Vivar MD LABORATORY Performing Organization Address [facility] [place] [address], * VANCOMYCIN LEVEL (12/13/2023 5:24 PM CDT) Vancomycin 17.0 mcg/mL [facility] Comment:Expected Range (Trou gh): 10-20 mcg/ml Blood 12/13/2023 5:24 PM CDT 12/13/2023 5:46 PM CDT Narrative [facility] - 12/13/2023 6:34 PM CDT Please ensure trough level drawn prior to next vancomycin dose. Thank you Peak or trough:->Trough Eusebio KolbD LABORATORY Performing Organization Address City/[facility] Co de Phone Number [facility] [address] [address] * (ABNORMAL) POC GLUCOSE (12/13/2023 4:00 PM CDT) POC Glucose 153(H) 70 - 100 mg/dL [facility] POINT OF CARE Blood 12/13/2023 4:00 PM CDT Eusebio Vivar MD LABORATORY [facility] POINT [facility] [address] [place] [address], [place] * (ABNORMAL) POC GLUCOSE (12/13/2023 11:47 AM CDT) POC Glucose 271(H) 70 - 100 mg/dL [facility] POINT OF CARE Blood 12/13/2023 11:4 7 AM CDT Eusebio Vivar MD LABORATORY Performing Organization Address [facility]/ZIP Co de Phone Number [facility] [address] [place] [address], [place] * (ABNORMAL) POC GLUCOSE (12/13/2023 6:35 AM CDT) POC Glucose 204(H) 70 - 100 mg/dL [facility] Blood 12/13/2023 6:35 AM CDT Eusebio Vivar MD LABORATORY Performing Organization Address [facility] Co de Phone Number [facility] [address] [place] [address], [place] * (ABNORMAL) POC GLUCOSE (12/12/2023 8:54 PM CDT) POC Glucose 170(H) 70 - 100 mg/dL [facility] POINT OF CARE Blood 12/12/2023 8:54 PM CDT Eusebio Vivar MD LABORATORY Performing Organization Address City/[facility]/ZIP Co de Phone Number [facility] [address] [place] [address], [place] * (ABNORMAL) POC GLUCOSE (12/12/2023 4:10 PM CDT) POC Glucose 252(H) 70 - 100 mg/dL [facility] POINT [facility] CARE Blood 12/12/2023 4:10 PM CDT Eusebio Vivar MD LABORATORY Performing Organization Address [facility] Co de Phone Number [facility] [address] [place] [address], [place] * (ABNORMAL) POC GLUCOSE (12/12/2023 11:07 AM CDT) POC Glucose 200(H) 70 - 100 mg/dL [facility] Blood 12/12/2023 11:0 7 AM CDT Eusebio Vivar MD LABORATORY Performing Organization Address [facility] Co de Phone Number [facility] [address] [place] [address], [place] * (ABNORMAL) POC GLUCOSE (12/12/2023 6:42 AM CDT) POC Glucose 185(H) 70 - 100 mg/dL [facility] Blood 12/12/2023 6:42 AM CDT Eusebio Vivar MD LABORATORY Performing Organization Address [facility] de Phone Number [facility] [address] [place] [address], [place] * (ABNORMAL) POC GLUCOSE (12/11/2023 9:10 PM CDT) POC Glucose 226(H) 70 - 100 mg/dL [facility] Blood 12/11/2023 9:10 PM CDT Eusebio Vivar MD LABORATORY Performing Organization Address [facility] Co de Phone Number [facility] [address] [place] [address], [place] * VANCOMYCIN LEVEL (12/11/2023 5:28 PM CDT) Vancomycin 19.6 mcg/mL [facility] Comment:Expected Range (Trou gh): 10-20 mcg/ml Blood 12/11/2023 5:28 PM CDT 12/11/2023 5:37 PM CDT Narrative [facility] - 12/11/2023 6:46 PM CDT Peak or trough:->Trough Igor Glover MD LABORATORY [facility] [address] [place] [address] * (ABNORMAL) POC GLUCOSE (12/11/2023 4:13 PM CDT) POC Glucose 173(H) 70 - 100 mg/dL [facility] Blood 12/11/2023 4:13 PM CDT Eusebio Vivar MD LABORATORY Performing Organization Address City/[facility] Co de Phone Number [facility] POINT OF [place] [phone], [place] * (ABNORMAL) POC GLUCOSE (12/11/2023 11:43 AM CDT) POC Glucose 283(H) 70 - 100 mg/dL [facility] Blood 12/11/2023 11:4 3 AM CDT Eusebio Vivar MD LABORATORY Performing Organization Address [facility] Co de Phone Number [facility] POINT [facility] [place] [phone], [place] * (ABNORMAL) POC GLUCOSE (12/11/2023 10:28 AM CDT) POC Glucose 198(H) 70 - 100 mg/dL [facility] POINT OF CARE Blood 12/11/2023 10:2 8 AM CDT Eusebio Vivar MD LABORATORY Performing Organization Address City/[facility]/ZIP Co de Phone Number [facility] POINT CARE [address] [place], [place] [address], [place] * (ABNORMAL) POC GLUCOSE (12/11/2023 6:41 AM CDT) POC Glucose 173(H) 70 - 100 mg/dL [facility] Blood 12/11/2023 6:41 AM CDT Eusebio Vivar MD LABORATORY [facility]ARE [address] [place] [address], [place] * (ABNORMAL) CBC WITH PLTS/AUTO DIFF (12/11/2023 5:50 AM CDT) Pathologist [facility] WBC 8.72 4.00 - 10.00 k/cmm [facility] RBC 3.82(L) 4.60 - 6.00 m/cmm [facility] Hgb 10.6(L) 13.1 - 17.5 g/dL [facility] Hematocrit 32.4(L) 40.0 - 51.0 % [facility] MCV 84.8 80.0 - 100.0 fL [facility] MCH 27.7 25.0 - 32.0 pg [facility] MCHC 32.7 31.0 - 36.0 g/dL [facility] RDW 13.5 11.5 - 14.5 % [facility] Plt 400 150 - 400 k/cmm [facility] MPV 9.3 6.5 - 12.5 fL [facility] Automated Abs Neutrophil 4.22 1.70 - 6.50 k/cmm [facility] Comment:Preliminary ANC, Fin al Result to Follow Abs Immature Granulocyte 0.09 0.00 - 0.09 k/cmm [facility] Comment:The Immature Granulo cyte Absolute count contains metamyelocytes and myelocytes. Abs Neutrophil 4.22 1.70 - 6.50 k/cmm [facility] Abs Lymphocyte 2.59 0.80 - 4.00 k/cmm [facility] Abs Monocyte 1.00 0.20 - 1.00 k/cmm [facility] Abs Eosinophil 0.79(H) 0.00 - 0.60 k/cmm [facility] Abs Basophil 0.03 0.00 - 0.20 k/cmm [facility] Blood 12/11/2023 5:50 AM CDT 12/11/2023 6:26 AM CDT Igor Glover MD LABORATORY Performing Organization Address [facility] Co de Phone Number [facility] [address] [address] * (ABNORMAL) PANEL BASIC METABOLIC (BMP) (12/11/2023 5:50 AM CDT) CO2 25 22 - 30 mmol/L [facility] Glucose 178(H) 70 - 100 mg/dL [facility] BUN 9 6 - 20 mg/dL [facility] Creatinine 0.92 0.70 - 1.25 mg/dL [facility] Calcium 9.0 8.6 - 10.0 mg/dL [facility] Sodium 136 135 - 148 mmol/L [facility] Potassium 4.1 3.5 - 5.3 mmol/L [facility] Chloride 100 92 - 108 mmol/L [facility] eGFR (2020 CKD-EPI) 105 >=60 ml/min/1.7 3m2 [facility] Comment: The estimated glomerular filtration rate (eGFR) was calculated using the CKD-EPI 2020 creatinine equation, which does not include race as a factor. This equation is validated in individuals 18 years of age and older, and eGFR is normalized to a body surface area of 1.73m^2. AnGap 11 8 - 16 mmol/L [facility] Blood 12/11/2023 5:50 AM CDT 12/11/2023 6:25 AM CDT Igor Glover MD LABORATORY Performing Organization Address [facility] Co de Phone Number [facility] [address] [address] * (ABNORMAL) POC GLUCOSE (12/10/2023 9:03 PM CDT) POC Glucose 206(H) 70 - 100 mg/dL [facility] Blood 12/10/2023 9:03 PM CDT Eusebio Vivar MD LABORATORY [facility] [address] [place] [address], [place] * (ABNORMAL) POC GLUCOSE (12/10/2023 4:16 PM CDT) POC Glucose 341(H) 70 - 100 mg/dL [facility] Blood 12/10/2023 4:16 PM CDT Eusebio Vivar MD LABORATORY [facility] [address] [place] [address], [place] * XR CHEST 2 VIEWS PA [...] POC Glucose 194(H) 70 - 100 mg/dL [facility] Blood 12/10/2023 12:0 9 PM CDT Eusebio Vivar MD LABORATORY [facility] [address] [place] [address], * SURGICAL PATHOLOGY (12/10/2023 11:07 AM CDT) SURG PATH FINAL ?Surgical Pathology Report Collection Date: ?12/10/2023 11:07 CDT ? Ordering Physician: ? SUZY PATINO Received Date: ?12/10/2023 12:07 CDT ? Accession Number: ? [id number] ? Surgical Pathology Final Report Specimen Type: [...] Regalado M.D. Attending Pathologist. DDB/DDB 12.10.2023 13:39 [facility] AP Specimen FOOT STRUCTURE / Unknown 12/10/2023 11:07 AM CDT Comment:OR: Routine gross an d microscopic examination Tissue: 1st metatarsel left foot, cut margin Site: foot Additional clinical information: Suzy Patino DPM LAB PATHOLOGY [facility] [address] [address] * (ABNORMAL) POC GLUCOSE (12/10/2023 6:16 AM CDT) POC Glucose 228(H) 70 - 100 mg/dL [facility] Blood 12/10/2023 6:16 AM CDT Eusebio Vivar MD LABORATORY [facility] [address] [place] [address], * (ABNORMAL) CBC WITH PLTS/AUTO DIFF (12/10/2023 5:06 AM CDT) WBC 8.35 4.00 - 10.00 k/cmm [facility] RBC 3.81(L) 4.60 - 6.00 m/cmm [facility] Hgb 10.3(L) 13.1 - 17.5 g/dL [facility] Hematocrit 32.5(L) 40.0 - 51.0 % [facility] MCV 85.3 80.0 - 100.0 fL [facility] MCH 27.0 25.0 - 32.0 pg [facility] MCHC 31.7 31.0 - 36.0 g/dL [facility] RDW 13.4 11.5 - 14.5 % [facility] Plt 377 150 - 400 k/cmm [facility] MPV 9.4 6.5 - 12.5 fL [facility] Automated Abs Neutrophil 4.14 1.70 - 6.50 k/cmm [facility] Comment:Preliminary ANC, Fin al Result to Follow Abs Immature Granulocyte 0.08 0.00 - 0.09 k/cmm [facility] Comment:The Immature Granulo cyte Absolute count contains metamyelocytes and myelocytes. Abs Neutrophil 4.14 1.70 - 6.50 k/cmm [facility] Abs Lymphocyte 2.39 0.80 - 4.00 k/cmm [facility] Abs Monocyte 1.06(H) 0.20 - 1.00 k/cmm [facility] Abs Eosinophil 0.64(H) 0.00 - 0.60 k/cmm [facility] Abs Basophil 0.04 0.00 - 0.20 k/cmm [facility] Blood 12/10/2023 5:06 AM CDT 12/10/2023 5:40 AM CDT Igor Glover MD LABORATORY [facility] [address] [address] * (ABNORMAL) PANEL BASIC METABOLIC (BMP) (12/10/2023 5:06 AM CDT) CO2 26 22 - 30 mmol/L [facility] Glucose 204(H) 70 - 100 mg/dL [facility] BUN 11 6 - 20 mg/dL [facility] Creatinine 0.92 0.70 - 1.25 mg/dL [facility] Calcium 9.0 8.6 - 10.0 mg/dL [facility] Sodium 137 135 - 148 mmol/L [facility] Potassium 4.2 3.5 - 5.3 mmol/L [facility] Chloride 101 92 - 108 mmol/L [facility] eGFR (2020 CKD-EPI) 105 >=60 ml/min/1.7 3m2 [facility] Comment: The estimated glomerular filtration rate (eGFR) was calculated using the CKD-EPI 2020 creatinine equation, which does not include race as a factor. This equation is validated in individuals 18 years of age and older, and eGFR is normalized to a body surface area of 1.73m^2. AnGap 10 8 - 16 mmol/L [facility] Blood 12/10/2023 5:06 AM CDT 12/10/2023 5:40 AM CDT Igor Glover MD LABORATORY Performing Organization Address [facility] Co de Phone Number [facility] [address] [address] * (ABNORMAL) POC GLUCOSE (12/09/2023 9:18 PM CDT) POC Glucose 204(H) 70 - 100 mg/dL [facility] Blood 12/09/2023 9:18 PM CDT Eusebio Vivar MD LABORATORY Performing Organization Address [facility]/ZIP Co de Phone Number [facility] [address] [place] [address], * (ABNORMAL) PANEL BASIC METABOLIC (BMP) (12/09/2023 5:56 PM CDT) Sodium 134(L) 135 - 148 mmol/L [facility] Potassium 4.2 3.5 - 5.3 mmol/L [facility] Chloride 99 92 - 108 mmol/L [facility] CO2 23 22 - 30 mmol/L [facility] AnGap 12 8 - 16 mmol/L [facility] Glucose 246(H) 70 - 100 mg/dL [facility] BUN 13 6 - 20 mg/dL [facility] Creatinine 0.98 0.70 - 1.25 mg/dL [facility] Calcium 8.8 8.6 - 10.0 mg/dL [facility] eGFR (2020 CKD-EPI) 97 >=60 ml/min/1.7 3m2 [facility] Comment: The estimated glomerular filtration rate (eGFR) was calculated using the CKD-EPI 2020 creatinine equation, which does not include race as a factor. This equation is validated in individuals 18 years of age and older, and eGFR is normalized to a body surface area of 1.73m^2. Blood 12/09/2023 5:56 PM CDT 12/09/2023 6:26 PM CDT Igor Glover MD LABORATORY Performing Organization Address City/[facility]/ZIP Co de Phone Number [facility] [address] [address] * VANCOMYCIN LEVEL (12/09/2023 5:56 PM CDT) Pathologist [facility] Vancomycin 22.0 mcg/mL [facility] Comment:Expected Range (Trou gh): 10-20 mcg/ml Blood 12/09/2023 5:56 PM CDT 12/09/2023 6:26 PM CDT Narrative [facility] - 12/09/2023 8:14 PM CDT Peak or trough:->Trough Gwen Gamez PharmD LABORATORY [facility] [address] [address] * (ABNORMAL) POC GLUCOSE (12/09/2023 4:08 PM CDT) POC Glucose 231(H) 70 - 100 mg/dL [facility] POINT OF CARE Blood 12/09/2023 4:08 PM CDT Eusebio Vivar MD LABORATORY Performing Organization Address [facility] Co de Phone Number [facility] [address] [place] [address], * (ABNORMAL) POC GLUCOSE (12/09/2023 11:13 AM CDT) POC Glucose 282(H) 70 - 100 mg/dL [facility] POINT OF CARE Blood 12/09/2023 11:1 3 AM CDT Eusebio Vivar MD LABORATORY Performing Organization Address [facility] de Phone Number [facility] POINT [facility] [address] [place] [address], [place] * HBO TCO2 MEASUREMENT COMPLETE (12/09/2023 [...] Reg 2002; 10:198-207. Bridget QUIÑONEZ et al. [facility] 2009, Vol. 36(1). ? [place] 07/27/13 [...] POC Glucose 198(H) 70 - 100 mg/dL [facility] Blood 12/09/2023 6:43 AM CDT Eusebio Vivar MD LABORATORY Performing Organization Address City/[facility]/ZIP Co de Phone Number [facility] POINT OF CARE [address] [place] [address], [place] * (ABNORMAL) POC GLUCOSE (12/08/2023 9:10 PM CDT) Pathologist [facility] POC Glucose 268(H) 70 - 100 mg/dL [facility] Blood 12/08/2023 9:10 PM CDT Eusebio Vivar MD LABORATORY [facility] POINT OF CARE [address] [place] [address], [place] * (ABNORMAL) SED RATE (ESR) (12/08/2023 4:47 PM CDT) Sed Rate 120(H) 2 - 10 mm/hr [facility] Blood 12/08/2023 4:47 PM CDT 12/08/2023 5:07 PM CDT Suzy Shafer PA-C LABORATORY Performing Organization Address [facility] Co de Phone Number [facility] [address] [address] * (ABNORMAL) PANEL BASIC METABOLIC (BMP) (12/08/2023 4:47 PM CDT) Sodium 134(L) 135 - 148 mmol/L [facility] Potassium 4.0 3.5 - 5.3 mmol/L [facility] Chloride 98 92 - 108 mmol/L [facility] CO2 24 22 - 30 mmol/L [facility] AnGap 12 8 - 16 mmol/L [facility] Glucose 247(H) 70 - 100 mg/dL [facility] BUN 16 6 - 20 mg/dL [facility] Creatinine 0.98 0.70 - 1.25 mg/dL [facility] Calcium 8.7 8.6 - 10.0 mg/dL [facility] eGFR (2020 CKD-EPI) 97 >=60 ml/min/1.7 3m2 [facility] Comment: The estimated glomerular filtration rate (eGFR) was calculated using the CKD-EPI 2020 creatinine equation, which does not include race as a factor. This equation is validated in individuals 18 years of age and older, and eGFR is normalized to a body surface area of 1.73m^2. Blood 12/08/2023 4:47 PM CDT 12/08/2023 5:07 PM CDT Suzy Shafer PA-C LABORATORY Performing Organization Address [facility] Co de Phone Number [facility] [address] [address] * (ABNORMAL) GLYCOSYLATED HGB - A1C (12/08/2023 4:47 PM CDT) Hemoglobin A1C 8.5(H) 4.0 - 5.6 % [facility] Comment: Increased risk for diabetes (prediabetes): 5.7-6.4% Diabetes >=6.5% In the absence of unequivocal hyperglycemia, diagnosis requires two abnormal test results (i.e. HbA1c and glucose) or two abnormal results from specimens collected at two different timepoints. The presence of some hemoglobin variants or red cell disorders may interfere with the measurement of hemoglobin A1c (HbA1c). Estimated Average Glucose 197(H) 68 - 114 [facility] Comment: The estimated Average Glucose (eAG) was calculated using an equation derived from a study of 507 adults with type 1, type 2, or no diabetes. Minority populations were underrepresented and children were not included. The eAG is not equivalent to a fasting glucose concentration. Blood 12/08/2023 4:47 PM CDT 12/08/2023 5:07 PM CDT Narrative [facility] - 12/08/2023 6:01 PM CDT If not done in the last 30 days. Suzy Shafer PA-C LABORATORY Performing Organization Address [facility] Co de Phone Number [facility] [address] [address] * (ABNORMAL) CBC WITH PLATELET (12/08/2023 4:47 PM CDT) WBC 10.39(H) 4.00 - 10.00 k/cmm [facility] RBC 3.59(L) 4.60 - 6.00 m/cmm [facility] Hgb 9.8(L) 13.1 - 17.5 g/dL [facility] Hematocrit 30.8(L) 40.0 - 51.0 % [facility] MCV 85.8 80.0 - 100.0 fL [facility] MCH 27.3 25.0 - 32.0 pg [facility] MCHC 31.8 31.0 - 36.0 g/dL [facility] RDW 13.5 11.5 - 14.5 % [facility] Plt 314 150 - 400 k/cmm [facility] MPV 9.3 6.5 - 12.5 fL [facility] Blood 12/08/2023 4:47 PM CDT 12/08/2023 5:07 PM CDT Suzy Shafer PA-C LABORATORY Performing Organization Address [facility]/ZIP Co de Phone Number [facility] [address] [address] * (ABNORMAL) C-REACTIVE PROTEIN (12/08/2023 4:47 PM CDT) C-Reactive Protein 77(H) <=4 mg/L [facility] Blood 12/08/2023 4:47 PM CDT 12/08/2023 5:07 PM CDT Suzy Shafer PA-C LABORATORY [facility] [address] [place] [address] * (ABNORMAL) POC GLUCOSE (12/08/2023 4:20 PM CDT) POC Glucose 204(H) 70 - 100 mg/dL [facility] Blood 12/08/2023 4:20 PM CDT Eusebio Vivar MD LABORATORY Performing Organization Address City/[facility]/ZIP Co de Phone Number [facility] [address] [place] [address], [place] * (ABNORMAL) POC GLUCOSE (12/08/2023 12:35 PM CDT) POC Glucose 227(H) 70 - 100 mg/dL [facility] Blood 12/08/2023 12:3 5 PM CDT Eusebio Vivar MD LABORATORY [facility] [address] [place] [address], [place] * (ABNORMAL) POC GLUCOSE (12/08/2023 10:02 AM CDT) POC Glucose 263(H) 70 - 100 mg/dL [facility] Blood 12/08/2023 10:0 2 AM CDT Eusebio Vivar MD LABORATORY [facility] [address] [place] [address], [place] * XR FOOT LEFT 3 V AP/OBL/LAT* [...] POC Glucose 214(H) 70 - 100 mg/dL [facility] CARE Blood 12/08/2023 8:32 AM CDT Eusebio Vivar MD LABORATORY [facility] [address] [place] [address], * SURGICAL PATHOLOGY (12/08/2023 7:56 AM CDT) SURG PATH FINAL ?Surgical Pathology Report Collection Date: ?12/08/2023 07:56 CDT ?Ordering Physician: ? CHE PALOMO Received Date: ?12/08/2023 08:41 CDT ?Accession Number: ? [id number] ? Surgical Pathology Final Report Specimen Type: [...] specimen reveals a yellow, trabeculated cut surface. Glass Bulb Silverer sections are submitted following decalcification as follows: A1: Resection margin, en face A2: Full cross-section of metatarsal head (DDB) DDB/DDB 12.08.2023 9:52 Microscopic Description: Microscopic examination performed and findings are reflected in the final diagnosis. I personally examined the relevant preparations and rendered and confirmed the diagnosis. ? Signed - Tootie Mackenzie M.D. Attending Pathologist. DDB/DDB 12.08.2023 9:52 [facility] AP Specimen FOOT STRUCTURE / Unknown 12/08/2023 7:56 AM CDT Comment:OR: Routine gross an d microscopic examination Tissue: Left first metatarsal head Site: left foot Additional clinical information: evaluate cut side for osteomyelitis Che Palomo [facility] PATHOLOGY Performing Organization Address [facility] de Phone Number [address] [address] * FUNGUS CULTURE:INCLUDES SUHAS (12/08/2023 7:51 AM CDT) Final Report No fungus isolated. [facility] SUHAS Prep No fungal elements seen. [facility] Bone STRUCTURE OF LEFT FOOT / Unknown 12/08/2023 7:51 AM CDT 12/08/2023 9:00 AM CDT Comment:2. Bone first metata rsal left foot Chekatelin Mullent DP LAB MICROBIOLOGY Performing Organization Address [facility] Co de Phone Number [address] [address] * ANAEROBE CULTURE (12/08/2023 7:51 AM CDT) Final Report No anaerobes isolated. [facility] Bone STRUCTURE OF LEFT FOOT / Unknown 12/08/2023 7:51 AM CDT 12/08/2023 9:00 AM CDT Comment:2. Bone first metata rsal left foot Chekatelin Mullent DP LAB MICROBIOLOGY Performing Organization Address [facility] Co de Phone Number [address] [address] * (ABNORMAL) TISSUE CULTURE:INCLUDES GRAM STAIN (12/08/2023 7:51 AM CDT) Final Report Positive Culture Few METHICILLIN RESISTANT Staphylococcus aureus (MRSA) isolated. 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 For susceptibility, see previous report on culture from wound culture collected 12/07/23. (POS) [facility] Organism METHICILLIN RESISTANT STAPHYLOCOCCUS AUREUS (MRSA)(POS) [facility] Gram Stain Report Corrected Report Positive Gram stain Rare PMN's seen. Rare gram positive cocci. Gram stain electronically reported to and acknowledged by: Dr. Niraj Lewis from OR at ??12/08/2023 10:09:09 by Jacklyn Easley MLS. Removed Pleomorphic gram variable bacilli from report. Results electronically reported to and acknowledged by: Dr. Igor Glover [facility] [place] 12/09/2023 12:48:27. Elizabeth Schwartz MLS. (POS) [facility] Bone STRUCTURE OF LEFT FOOT / Unknown 12/08/2023 7:51 AM CDT 12/08/2023 9:00 AM CDT Comment:2. Bone first metata rsal left foot Che Palomo [facility] MICROBIOLOGY [facility] [address] [address] * (ABNORMAL) TISSUE CULTURE:INCLUDES GRAM STAIN (12/08/2023 7:51 AM CDT) Final Report Positive Culture Few METHICILLIN RESISTANT Staphylococcus aureus (MRSA) isolated. 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 For susceptibility, see previous report on culture from wound culture collected 12/07/23. Rare Corynebacterium striatum group isolated. A member of the diphtheroid bacilli. (POS) [facility] Organism METHICILLIN RESISTANT STAPHYLOCOCCUS AUREUS (MRSA)(POS) [facility] Organism CORYNEBACTERIUM STRIATUM GROUP(POS) [facility] Gram Stain Report Positive Gram stain Rare PMN's seen. Rare gram positive cocci. Gram stain electronically reported to and acknowledged by: Dr. Niraj Lewis from OR at ??12/08/2023 10:09:09 by Jacklyn Easley MLS. (POS) [facility] Tissue FOOT STRUCTURE / Unknown 12/08/2023 7:51 AM CDT Comment:Add Aerobic Narrative [facility] - 12/10/2023 2:22 PM CDT Add Aerobic Che L Beth DPM LAB MICROBIOLOGY Performing Organization Address [facility] Co de Phone Number [facility] [address] [address] * FUNGUS CULTURE:INCLUDES SUHAS (12/08/2023 7:51 AM CDT) Final Report No fungus isolated. [facility] SUHAS Prep No fungal elements seen. [facility] Tissue FOOT STRUCTURE / Unknown 12/08/2023 7:51 AM CDT Comment:Add Aerobic Narrative [facility] - 01/05/2024 8:10 AM CDT Add Aerobic Che L Beth DPM LAB MICROBIOLOGY Performing Organization Address [facility] Co de Phone Number [facility] [address] [address] * ANAEROBE CULTURE (12/08/2023 7:51 AM CDT) Final Report No anaerobes isolated. [facility] Tissue FOOT STRUCTURE / Unknown 12/08/2023 7:51 AM CDT Comment:Add Aerobic Narrative [facility] - 12/14/2023 9:06 AM CDT Add Aerobic Che L Beth DPM LAB MICROBIOLOGY Performing Organization Address [facility] Co de Phone Number [facility] [address] [address] * (ABNORMAL) POC GLUCOSE (12/08/2023 7:22 AM CDT) POC Glucose 236(H) 70 - 100 mg/dL [facility] Blood 12/08/2023 7:22 AM CDT Eusebio Vivar MD LABORATORY Performing Organization Address [facility]/ZIP Co de Phone Number [facility]ARE [address] [place] [address], * EXTRA TUBE - BLUE (12/07/2023 4:05 PM CDT) BLUE TUBE [facility] Comment:Blue top(Sodium citr ate) tubes are kept for 3 days from the collection date. Blood 12/07/2023 4:05 PM CDT 12/07/2023 4:24 PM CDT Eusebio Vivar MD LABORATORY Performing Organization Address [facility] Co de Phone Number [facility] [place] [address] * EXTRA TUBE - DARK GREEN (12/07/2023 4:05 PM CDT) DARK GREEN TUBE Stored [facility] Comment:Dark Green tubes (Li thium Heparin) are stored in the lab for 1 day from the collection date. Blood 12/07/2023 4:05 PM CDT 12/07/2023 4:24 PM CDT Eusebio Vivar MD LABORATORY Performing Organization Address [facility] Co de Phone Number [facility] [address] [address] * (ABNORMAL) ED CHEMISTRY LABS(NA,K,CL,CO2,GLU,CREAT,CA-IONIZED,ANION GAP) (12/07/2023 4:05 PM CDT) Sodium 139 135 - 148 mmol/L [facility] Chloride 97 92 - 108 mmol/L [facility] AnGap 15 8 - 16 mmol/L [facility] Glucose 284(H) 70 - 100 mg/dL [facility] ICA, Actual 4.89 4.40 - 5.20 mg/dL [facility] ICA, pH Corrected 4.74 4.40 - 5.20 mg/dL [facility] Creatinine 1.26(H) 0.70 - 1.25 mg/dL [facility] BICARB 26 22 - 26 mEq/L [facility] eGFR (2020 CKD-EPI) 72 >=60 ml/min/1.7 3m2 [facility] Comment: The estimated glomerular filtration rate (eGFR) was calculated using the CKD-EPI 2020 creatinine equation, which does not include race as a factor. This equation is validated in individuals 18 years of age and older, and eGFR is normalized to a body surface area of 1.73m^2. Potassium 4.5 3.5 - 5.3 mmol/L [facility] Blood 12/07/2023 4:05 PM CDT 12/07/2023 4:27 PM CDT Eusebio Vivar MD LABORATORY [facility] [address] [address] * (ABNORMAL) CBC WITH PLTS/AUTO DIFF (12/07/2023 4:05 PM CDT) WBC 9.80 4.00 - 10.00 k/cmm [facility] RBC 4.08(L) 4.60 - 6.00 m/cmm [facility] Hgb 11.2(L) 13.1 - 17.5 g/dL [facility] Hematocrit 34.7(L) 40.0 - 51.0 % [facility] MCV 85.0 80.0 - 100.0 fL [facility] MCH 27.5 25.0 - 32.0 pg [facility] MCHC 32.3 31.0 - 36.0 g/dL [facility] RDW 13.7 11.5 - 14.5 % [facility] Plt 324 150 - 400 k/cmm [facility] MPV 9.4 6.5 - 12.5 fL [facility] Automated Abs Neutrophil 5.37 1.70 - 6.50 k/cmm [facility] Comment:Preliminary ANC, Fin al Result to Follow Abs Immature Granulocyte 0.12(H) 0.00 - 0.09 k/cmm [facility] Comment:The Immature Granulo cyte Absolute count contains metamyelocytes and myelocytes. Abs Neutrophil 5.37 1.70 - 6.50 k/cmm [facility] Abs Lymphocyte 2.61 0.80 - 4.00 k/cmm [facility] Abs Monocyte 1.32(H) 0.20 - 1.00 k/cmm [facility] Abs Eosinophil 0.34 0.00 - 0.60 k/cmm [facility] Abs Basophil 0.04 0.00 - 0.20 k/cmm [facility] Blood 12/07/2023 4:05 PM CDT 12/07/2023 4:51 PM CDT Eusebio Vivar MD LABORATORY Performing Organization Address City/[facility]/ZIP Co de Phone Number [facility] [address] [address] * LACTATE (LACTIC ACID) (12/07/2023 4:05 PM CDT) Pathologist [facility] Lactate 2.1 0.7 - 2.1 mmol/L [facility] Blood 12/07/2023 4:05 PM CDT 12/07/2023 4:27 PM CDT Narrative [facility] - 12/07/2023 4:27 PM CDT Send specimen on ice! Eusebio Vivar MD LABORATORY Performing Organization Address [facility] Co de Phone Number [address] [address] * (ABNORMAL) C-REACTIVE PROTEIN (12/07/2023 4:05 PM CDT) C-Reactive Protein 82(H) <=4 mg/L [facility] Blood 12/07/2023 4:05 PM CDT 12/07/2023 4:51 PM CDT Eusebio Vivar MD LABORATORY Performing Organization Address [facility] Co de Phone Number [facility] [address] [address] * (ABNORMAL) SED RATE (ESR) (12/07/2023 4:05 PM CDT) Sed Rate 120(H) 2 - 10 mm/hr [facility] Blood 12/07/2023 4:05 PM CDT 12/07/2023 4:51 PM CDT Eusebio Vivar MD LABORATORY Performing Organization Address [facility] Co de Phone Number [facility] [address] [address] * BLOOD AEROBIC/ANAEROBIC CULTURE (12/07/2023 4:05 PM CDT) Final Report No growth after 5 days. [facility] Blood (Peripheral) 12/07/2023 4:05 PM CDT 12/07/2023 7:55 PM CDT Eusebio Vivar MD LAB MICROBIOLOGY Performing Organization Address [facility] de Phone Number [facility] [address] [address] documented in this encounter Visit Diagnoses Diagnosis Other acute osteomyelitis of left foot (CMS/HHS)- Primary Other acute osteomyelitis of left foot (CMS/HHS) Soft tissue infection Unspecified infectious and parasitic diseases At risk for sexually transmitted infection due to unprotected sex 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 Other acute osteomyelitis of left foot (CMS/HHS) documented in this encounter Admitting Diagnoses Diagnosis [...] Given 12/13/2023 10:08 AM CDT 650 mg amLODIPine (NORVASC) tablet 10 mg 10 mg, Oral, DAILY, First dose on Wed12/08/23 at 0820, Until Discontinued Given 12/14/2023 10:35 AM CDT 10 mg Given 12/13/2023 10:09 AM CDT 10 mg Given 12/12/2023 9:21 AM CDT 10 mg bupivacaine 0.5% injection INTRA-OP ONCE PRN, Starting on Wed12/10/23 at 1051, Until Wed12/10/23 at 1158 Given 12/10/2023 10:51 AM CDT 6 mL Inci rosio cyclobenzaprine (FLEXERIL) tablet 10 mg 10 mg, [...] 40 mg, Subcutaneous, Q12H, First dose on 12/11/23 at 2000, Until Discontinued Given 12/14/2023 10:36 [...] Given 12/11/2023 9:01 PM CDT 20 mg insulin ASPART (NovoLOG) FlexPen Insulin Order [...] UNITS A bdominal Tissue insulin GLARGINE (LANTUS) 33 UNITS injection vial 33 UNITS, Subcutaneous, Q24H, First dose (after last modification) on Wed12/13/23 at 0800, Until Discontinued Given 12/14/2023 10:36 AM CDT 33 UNITS Right Lower Quadrant Abdomen Given 12/13/2023 10:10 AM CDT 33 UNITS A bdominal Tissue lidocaine 2% injection INTRA-OP ONCE PRN, Starting on Wed12/10/23 at 1051, Until Wed12/10/23 at 1158 Given 12/10/2023 10:51 AM CDT 6 mL Inci rosio loratadine (CLARITIN) tablet 10 mg 10 mg, [...] Given 12/12/2023 12:27 AM CDT 10 mg prazosin (MINIPRESS) capsule 1 mg 1 mg, Oral, BEDTIME, First dose on Wed12/08/23 at 1999, Until Discontinued Given 12/13/2023 8:15 PM CDT 1 mg Given 12/12/2023 9:03 PM CDT 1 mg Given 12/11/2023 9:01 PM CDT 1 mg rosuvastatin (CRESTOR) tablet 10 mg 10 mg, Oral, BEDTIME, First dose on Wed12/08/23 at 1999, Until Discontinued Given 12/13/2023 8:15 PM CDT 10 mg Given 12/12/2023 9:04 PM CDT 10 mg Given 12/11/2023 9:01 PM CDT 10 mg traZODone (DESYREL) tablet 50 mg 50 mg, Oral, BEDTIME, First dose on Wed12/08/23 at 1999, Until Discontinued Given 12/13/2023 8:15 PM CDT [...] AM CDT 1,250 mg 175 mL/hr New Bag 12/13/2023 5:59 PM CDT 1,250 mg 175 mL/hr New Bag 12/13/2023 5:56 AM CDT 1,250 mg 175 mL/hr documented in this encounter Active and [...] - Comment: HBO)1009 (Given - Provider: Natasha Vivar RN) 1035 (Given - Provider: Dawood Sargent RN) cyclobenzaprine (FLEXERIL) tablet 10 mg 10 mg, Oral, TID, First dose on Wed12/12/23 at 1015, Until Discontinued 1233 (Given - Provider: Sravani Rosado RN)1545 (Given - Provider: Sravani Rosado RN)2107 (Given - Provider: Susie Matson RN) 0917 (Delayed (keeps Due time) - Provider: Natasha Vivar RN - Reason: Patient not in room - Comment: HBO)1008 (Given - Provider: Natasha Vivar RN)1404 (Given - Provider: Natasha Vivar RN)2015 (Given - Provider: Kate Sarmiento RN) 1036 (Given - Provider: Dawood Sargent RN) DC MED REC REVIEW BY PHARMACY(Linked Group 1) Discharge Date: 12/12/2023, Discharge Location: Subacute Rehab, Anticipated Discharge Time: After 2 pm, Discharge Medication Orders: DC Med Orders Final, Does not apply, PROTOCOL, Starting on Wed12/12/23 at 1005, Until Wed12/14/23 at 1538 enoxaparin (LOVENOX) 40 mg/0.4 mL injection 40 mg 40 mg, Subcutaneous, Q12H, First dose on Wed12/11/23 at 2000, Until Discontinued 918 (Given - Provider: Sravani Rosado RN)2102 (Given - Provider: Susie Matson, RN) 0917 (Delayed (keeps Due time) - Provider: Natasha Vivar RN - Reason: Patient not in room - Comment: HBO)1007 (Given - Provider: Natasha Vivar RN)2013 (Given - Provider: Kate Sarmiento, SABINE) 1036 (Given - Provider: Dawood Sargent RN) escitalopram (LEXAPRO) tablet 20 mg 20 mg, [...] dose on Wed12/08/23 at 0820, Until Discontinued 910 (Dual Sign-Off - Provider: Laura Sarabia RN)0917 [...] Natasha Vivar RN)1010 (Given - Provider: Natasha Vivar, SABINE)1205 (Dual Sign-Off - Provider: Natasha Vivar RN)1209 (Given - Provider: Natasha Vivar RN)1725 (Dual Sign-Off - Provider: Jose Antonio Kendall RN)1730 (Given - Provider: Natasha Vivar RN) 0800 (Not Given (removes Due time) - Provider: Dawood Sargent RN - Reason: Patient not in room)1143 (Dual Sign-Off - Provider: Igor Eli RN)1146 (Given - Provider: Dawood Sargent, SABINE) insulin ASPART (NovoLOG) FlexPen Glucose 201-250 (Units): [...] Q24H, First dose (after last modification) on Wed12/11/23 at 0800, Until Discontinued 0911 (Dual Sign-Off - Provider: Laura Sarabia RN)0917 (Given - Provider: Sravani Rosado, SABINE) insulin GLARGINE (LANTUS) 33 UNITS injection vial 33 UNITS, Subcutaneous, Q24H, First dose (after last modification) on 12/13/23 at 0800, Until Discontinued 0919 (Delayed (keeps Due time) - Provider: Natasha Vivar RN - Reason: Patient not in room - Comment: HBO)1003 (Dual Sign-Off - Provider: Natasha Vivar RN)1010 (Given - Provider: Natasha Vivar RN) 1029 (Dual Sign-Off - Provider: Dawood Sargent RN)1036 (Given - Provider: Dawood Sargent RN) loratadine (CLARITIN) tablet 10 mg 10 mg, Oral, DAILY, First dose on Wed12/09/23 at 0800, Until Discontinued 920 (Given - Provider: Sravani Rosado RN) 0919 (Delayed (keeps Due time) - Provider: Natasha Vivar RN - Reason: Patient not in room - Comment: HBO)1008 (Given - Provider: Natasha Vivar RN) 1036 (Given - Provider: Dawood Sargent, SABINE) nicotine (NICOTROL) 14 mg/ 24hr daily 1 patch 1 patch, Transdermal, DAILY, First dose on Wed12/07/23 at 1940, Until Discontinued 920 (Patch removed - Provider: Sravani Rosado RN)0924 (Patch applied - Provider: Sravani Rosado RN) 0920 (Delayed (keeps Due time) - Provider: Natasha Vivar RN - Reason: Patient not in room - Comment: HBO)1007 (Patch removed - Provider: Natasha Vivar RN)1011 (Patch applied - Provider: Natasha Viavr RN) 1035 (Patch removed - Provider: Dawood Sargent RN)1036 (Patch applied - Provider: Dawood Sargent RN)1238 (Due: Patch removed - Provider: JENNIFER NARAYANAN, [facility] - Comment: Time automatically adjusted from order being discontinued) prazosin (MINIPRESS) capsule 1 mg 1 mg, Oral, BEDTIME, First dose on Wed12/08/23 at 1999, Until Discontinued 2102 (Given - Provider: Susie Matson, SABINE) 2014 (Given - Provider: Kate Sarmiento, SABINE) rosuvastatin (CRESTOR) tablet 10 mg 10 mg, Oral, BEDTIME, First dose on Wed12/08/23 at 1999, Until Discontinued 2103 (Given - Provider: Susie Matson, SABINE) 2014 (Given - Provider: Kate Sarmiento, SABINE) traZODone (DESYREL) tablet 50 mg 50 mg, Oral, BEDTIME, First dose on Wed12/08/23 at 1999, Until Discontinued 2102 (Given - Provider: Susie Matson, SABINE) 2014 (Given - Provider: Kate Sarmiento, SABINE) vancomycin (VANCOCIN) 1,250 mg in NaCl 0.9% 250 mL IVPB 1,250 mg, Indication (Select One): Infection - Confirmed, SITE (Select all that apply): Skin/Soft Tissue, Cultures Ordered? Yes, Dose By? Phamacist to Dose, Intravenous, Q12H, First dose (after last modification) on Wed12/12/23 at 0600, Until Discontinued 06 (New Bag - Provider: Susie Matson, RN)0740 (Infusion completed - Provider: Sravani Rosado RN)184 (New Bag - Provider: Dawood Sargent, RN)2030 (Infusion completed - Provider: Susie Matson, SABINE) 0556 (New Bag - Provider: Susie Matson RN)0920 (Infusion completed - Provider: Natasha Vivar, SABINE)1759 (New Bag - Provider: Natasha Vivar, SABINE)1930 (Infusion completed - Provider: Kate Sarmiento RN) 0523 (New Bag - Provider: Kate Sarmiento, SABINE)0735 (Infusion completed - Provider: Dawood Sargent, SABINE) PRN Medication Order 12/12/2023 12/13/2023 12/14/2023 acetaminophen (TYLENOL) tablet 650 mg 650 mg, Oral, Q6H PRN, Starting on Wed12/08/23 at 0819, Until Wed12/14/23 at 1538, Headache, Temp > 38.6 C, Mild Pain (Use First) 09 (Given - Provider: Sravani Rosado, SABINE)2111 (Given - Provider: Susie Matson RN) 0916 (Delayed (keeps Due time) - Provider: Natasha Vivar RN - Reason: Patient not in room - Comment: HBO)1008 (Given - Provider: Natasha Vivar, SABINE)1404 (Given - Provider: Natasha Vivar, SABINE) 1145 (Given - Provider: Dawood Sargent, SABINE) nicotine polacrilex (NICORELIEF) gum 2 mg 2 mg, Gum, Q1H PRN, Starting on Wed12/08/23 at 0819, Until Wed12/14/23 at 1538, Nicotine Craving (Use First) 1029 (Given - Provider: Sravani Rosado, RN)1234 (Given - Provider: Sravani Rosado RN)1546 (Given - Provider: Sravani Rosado RN)1703 (Given - Provider: Sravani Rosado RN)1845 (Given - Provider: Dawood Sargent, SABINE) normal saline flush 0.9 % solution 10 mL 10 mL, IV Push, Q5 MIN PRN, Starting on Heather 12/09/23 at 1610, Until Wed12/14/23 at 1538, IV Line Flush ondansetron (ZOFRAN) tablet 4 mg 4 mg, Oral, Q6H PRN, Starting on Wed12/08/23 at 0819, Until Wed12/14/23 at 1538, Nausea/Vomiting (Use First) oxyCODONE (ROXICODONE) tablet 5-10 mg 5-10 mg, Oral, Q4H PRN, Starting on Wed12/08/23 at 0905, Until Wed12/14/23 at 1538, Moderate Pain (Use First) 0027 (Given - Provider: Susie Matson RN) 0920 (Delayed (keeps Due time) - Provider: Natasha Vivar RN - Reason: Patient not in room - Comment: HBO)1008 (Given - Provider: Natasha Vivar RN) 1145 (Given - Provider: Dawood Sargent, SABINE) Linked Groups Order Group 1: DC MED [...]
--- OUTSIDE RECORDS SUMMARY | 2024-02-07 08:49 | XMS_ITS | Encounter Summary ---
Author Organization [facility] Address [address] [place] [phone] Phone Care Team Providers Care Executive Account Manager Name Role Phone Unavailable Primary Care Provider Unavailabl e Reason for Visit * Auth/Cert (Routine) Specialty Diagnoses / Procedures Referred By Katherine tidwell Referred To Contact SURGERY Diagnoses Other acute osteomyelitis of left foot ([facility]) Eusebio Vivar MD [address] [place] [id number] Or P4 [address] [place] [address] Referral ID Status Reason Start Date Expiration Date Visits Re quested Visits Authorized [id number] 1 1 Encounter Details Date Type Department Care Team (Late st Contact Info) Description 12/08/2023 7:28 AM CDT Anesthesia Event OR P4 [address] [place] [address] [phone] Dontae Higgins MD [address] [place], [place] [id number] Carly Jordan MD [address] [place], [place] [phone] Anesthesia Record Procedure Summary Procedure Name Responsible Anesthesiologist Anesthesia Start Time Anesthesia Stop Time PARTIAL AMPUTATION FOOT (Left: Foot) Dontae Higgins MD 12/08/23 0728 12/08/23 0837 Events Date Time Event Comment 12/08/2023 0710 Pre Start 0711 Anesthetic plan discussed with Anesthesiologist 0711 Pre-op End 0728 An Start 0728 An Start Data 0728 IOPAE The intraoperat dasha pre-anesthetic evaluation was completed with no changes noted from the pre-operative anesthesia evaluation. 0826 an stop data 0837 An Stop Meds Name Total propofol (DIPRIVAN) inFUSION 681.6 mg insulin GLARGINE (LANTUS) injection vial 30 UNITS vancomycin (VANCOCIN) 1,500 mg in NaCl 0 .9% 500 mL IVPB 2,500 mg lactated ringers infusion 400 mL * Agents Name O2 N20 Air * Blood No blood administrations on file. Lines, Drains, and Airways Type Details Placement Removal Wound 11/10/23; 1707; Incision; Perineum; I+D site 11/11/23 11/10/23 1707 by Jeannie Wiley RN Wound 11/10/23; 1839; Y; Foot; Left; left toe 11/10/23 1839 by Nahid Powell RN Peripheral IV 12/07/23; 1609; No; 18 gauge; Left; Antecubital; Placed in ED; 12/08/23; 211212/07/23 1609 by Irene Bynum RN 12/08/232112 by Mitra Alvarez, RN documented in this encounter Social History [...] OR Notes * Anesthesia Postprocedure Evaluation - Dontae Higgins MD - 12/08/2023 11:00 AM CDT Anesthesia Post Eval Patient: Stephanie Low Procedure(s) Performed: PARTIAL AMPUTATION FOOT (Left: Foot) I've examined the patient and determined that he/she is medically stable [facility] Anesthesia type: General () Patient location: PACU Patient status: Post-procedure vital signs reviewed and stable Level of Consciousness: Awake Post-op pain: Adequate Respiratory: Stable Cardiovascular: Stable PONV status: none Fluid status: Acceptable [place]: not indicated Anesthetic Complications: No immediate anesthesia complications Last Vitals: Vitals Value Taken Time BP 147/86 12/08/23 1000 Temp 36.3 ??C (97.3 ??F) 12/08/23 0830 Pulse 74 12/08/23 1059 Resp 16 12/08/23 1059 SpO2 94 % 12/08/23 1059 Vitals shown include unfiled device data. * Anesthesia Preprocedure Evaluation - Dontae Higgins MD - 12/08/2023 7:04 AM CDT Anesthesia Pre-Evaluation Summary Statement: This is a 43 y.o. year old patient scheduled for PARTIAL AMPUTATION FOOT (Left: Foot). Anesthesia Evaluation Internal or external [...] GI - negative ROS Hematologic/Onc (+) anemia /Renal/Health Physics Technician - negative ROS Airway Mallampati: II TM distance: >3 FB Neck ROM: full Mouth Opening: good Dental - normal exam OB Other Physical Exam Anesthesia Plan ASA 2 MAC Post-op Care: routine analgesia Anesthetic plan and risks discussed with patient. Plan discussed with BLUEPRINT ENGINEER. Vitals: 12/08/23 0618 BP: 157/81 Pulse: 61 Resp: 14 Temp: SpO2: 96% documented in this encounter Miscellaneous Notes * Anesthesia Handoff Note - Rex Valdes APRN, CRNA - 12/08/2023 8:36 AM CDT Anesthesia Post Handoff Patient: Stephanie Low Procedure(s) Performed: PARTIAL AMPUTATION FOOT (Left: Foot) Patient was stable and nail beds/oral mucosa pink at time of handoff. Patient location: PACU Transportation: Patient was not placed on High Flow Oxygen. Anesthesia Type: MAC Patient did not meet fast track criteria. Report to RN () The nurse's questions were answered. Last Vitals: Vitals: 12/08/23 0832 BP: 122/74 Pulse: 72 Resp: 19 Temp: SpO2: 94% documented in this encounter Plan of Treatment Not on file documented as of this encounter Visit Diagnoses Not on filedocumented in this encounter Administered Medications Inactive Administered Medications - up to 3 most recent administrations Medication Order MAR Action Action Date Dose Rate Site insulin GLARGINE (LANTUS) injection vial Subcutaneous, INTRA-OP PRN ONCE MAY REPEAT, Starting on Wed12/08/23 at 0729, Until Wed12/08/23 at 0837 Given 12/08/2023 7:29 AM CDT 30 UNITS lactated ringers infusion Intravenous, PERIOP CONTINUOUS, Starting on Wed12/08/23 at 0740, Until Wed12/08/23 at 0837 New Bag 12/08/2023 7:28 AM CDT propofol 10 mg/mL Infusion PERIOP CONTINUOUS, Starting on Wed12/08/23 at 0735, Until Wed12/08/23 at 0837, Intravenous New Bag 12/08/2023 7:28 AM CDT 100 mcg/kg/min 85.2 mL/hr vancomycin (VANCOCIN) 1,500 mg in NaCl 0.9% 500 mL IVPB Intravenous, PERIOP CONTINUOUS, Starting on Wed12/08/23 at 0750, Until Wed12/08/23 at 0837 New Bag 12/08/2023 7:43 AM CDT 2,500 mg documented in this encounter Additional Health Concerns Infection Onset Date Last Indicated Resolved Time 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
--- OUTSIDE RECORDS SUMMARY | 2024-02-07 08:50 | XMS_ITS | Encounter Summary ---
Author Organization [facility] Address [address] [place] [address] Phone Care Team Providers Care Associate Professor Of Philosophy Name Role Phone Unavailable Primary Care Provider Unavailabl e Encounter Details Date Type Department Care Team (Latest Contact Info) Description 12/07/2023 Travel Social History Tobacco Use Types Packs/Day [...]
--- OUTSIDE RECORDS SUMMARY | 2024-02-07 08:50 | XMS_ITS | Encounter Summary ---
Author Organization [facility] Address [address] [place] [phone] Phone Care Team Providers Care Transporter Driver Name Role Phone Unavailable Primary Care Provider Unavailabl e Reason for Visit * Auth/Cert (Routine) Specialty Diagnoses / Procedures Referred By Katherine tidwell Referred To Contact SURGERY Diagnoses Other acute osteomyelitis of left foot ([facility]) Eusebio Vivar MD [address] [place] [address] [address] Referral ID Status Reason Start Date Expiration Date Visits Re quested Visits Authorized [id number] 1 1 Encounter Details Date Type Department Care Team (Latest Contact Info) Description 12/07/2023 3:07 PM CDT - 12/07/2023 11:59 PM CDT Hospital [facility] [address] [address] Che Campos DPM [address] [phone] Discharge Disposition: Discharged to home or self [...] of Foot in Diabetic Patient 12/12/2023 01/06/2024 insulin GLARGINE (LANTUS) 100 units/mL subcutaneous injection vialIndications:Type 2 Diabetes Mellitus Inject 33 UNITS subcutaneously every twenty-four hours. Indications: Type 2 Diabetes 12/12/2023 12/13/2023 insulin GLARGINE (LANTUS) 100 units/mL subcutaneous injection vialIndications:Type 2 Diabetes Mellitus Inject 30 UNITS subcutaneously every twenty-four hours. Indications: Type 2 Diabetes 11/25/2023 12/12/2023 insulin LISPRO (HUMALOG KWIKPEN) 100 UNIT/ML subcutaneous Kwikpen Inject 6 UNITS subcutaneously 3 times daily before meals. 15 mL 5 11/24/2023 12/13/2023 documented as of this encounter Plan of Treatment Not on file documented as of this encounter Procedures Procedure Name Priority Date/Time Associated Diagnosis Comments XR FOOT LEFT 3 V AP/OBL/LAT* Routine 12/07/2023 3:23 PM CDT 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[facility]) documented in this encounter Results * XR FOOT LEFT 3 V AP/OBL/LAT* (12/07/2023 3:23 PM CDT) Anatomical Region Laterality Modality Foot Digital Radiogra phy 12/07/2023 3:23 PM CDT Impressions 12/07/2023 3:24 PM CDT Impression: Radiographic findings concerning for osteomyelitis involving the first metatarsal head. Reading Radiologist: Fabian Eden Narrative 12/07/2023 3:24 PM CDT Technique: XR FOOT LEFT 3 V AP/OBL/LAT* Indication: eval left hallux for osteo/gas ?? Comparison: 11/17/2023 Findings: Postsurgical changes of the first digit amputation. Open soft tissue defect without significant subcutaneous emphysema. Bony erosive changes to the lateral aspects of the first metatarsal head with increased demineralization compared to previous exam. Bony erosive changes also seen about the medial aspect of the first metatarsal head on the oblique view. Procedure Note Fabian Eden MD - 12/07/2023 Technique: XR FOOT LEFT 3 V AP/OBL/LAT* Indication: eval left hallux for osteo/gas Comparison: 11/17/2023 Findings: Postsurgical changes of the first digit amputation. Open softtissue defect without significant subcutaneous emphysema. Bony erosivechanges to the lateral aspects of the first metatarsal head with increaseddemineralization compared to previous exam. Bony erosive changes also seenabout the medial aspect of the first metatarsal head on the obliqueview. IMPRESSION Impression: Radiographic findings concerning for osteomyelitis involving the firstmetatarsal head. 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) documented in this encounter Additional Health Concerns Infection Onset Date Last Indicated Resolved Time 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
--- OUTSIDE RECORDS SUMMARY | 2024-02-07 08:50 | XMS_ITS | Encounter Summary ---
Author Organization [facility] Address [address] [place] [id number] Phone Care Team Providers Care Modeling Agent Name Role Phone Unavailable Primary Care Provider Unavailabl e Reason for Visit * Auth/Cert (Routine) Specialty Diagnoses / Procedures Referred By Katherine tidwell Referred To Contact SURGERY Diagnoses Other acute osteomyelitis of left foot ([facility]) Eusebio Vivar MD [address] [place] [address] Or P4 [address] [place] [id number] Referral ID Status Reason Start Date Expiration Date Visits Re quested Visits Authorized [id number] 1 1 Encounter Details Date Type Department Care Team ([facility] st Contact Info) Description 12/08/2023 7:35 AM CDT - 12/08/2023 9:13 AM CDT Surgery OR P4 [address] [place] [id number] Che Palomo DPM [address] [address] PARTIAL AMPUTATION FOOT Social History Tobacco Use Types Packs/Day Years [...] Sign Reading Time Taken Comments Blood Pressure 156/83 12/08/2023 9:00 AM CDT Pulse 71 12/08/2023 9:00 AM CDT Temperature 36.3 ??C (97.3 ??F) 12/08/2023 8:30 AM CD T Respiratory Rate 17 12/08/2023 9:00 AM CDT Oxygen Saturation 94% 12/08/2023 9:00 AM CDT Inhaled Oxygen Concentration - - Weight - - Height - - Body Mass Index - - documented in this encounter Discharge Summaries * [...] on discharge due to cost/transport issues at [place]. HOSPITAL COURSE BY PROBLEM: Acute osteomyelitis of [...] wound and tissue cultures - NWB to [facility] - F/U podiatry clinic in a week. [...] 12/12 - discussed with PharmD. HTN: Continue [facility] amlodipine. Hyperlipidemia: Continue [facility] rosuvastatin. Tobacco use disorder: Continue NRT. Hx of TBI. Malnutrition Weight: (!) 139.9 kg (308 lb 6.8 oz) Wt Change from Previous: 0 Kg Wt Change from Admit: 0 Kg % Wt Change from Adm: 0 % [place] Body Wt (IBW) Male (kg): 75.3 kg [...] Comments: Fax to Dr. Aretha Damon at [phone] PANEL HEPATIC FUNCTION Standing Status: Future Standing Exp. Date: 03/13/24 Order Comments: Fax to Dr. Aretha Damon at [phone] Scheduling Instructions: Hepatic Function Panel includes: Albumin, Alk Phos, ALT, AST, Direct Bilirubin, Total Bilirubin and Total Protein C-REACTIVE PROTEIN Standing Status: Future Standing Exp. Date: 03/13/24 Order Comments: Fax to Dr. Aretha Damon at [phone] CREATININE, SERUM Standing Status: Future Standing Exp. Date: 03/13/24 Order Comments: Fax to Dr. Aretha Damon at [phone] Referral to Physical Therapy Referral Priority: Routine [...] of plan of care? Yes Okay for [facility] standing orders? Order Specific Question Answer Comments OK for [facility] house standing orders? Yes Give Mantoux unless current or contraindicated. Scheduling Instructions: Please specify in comments! Resume previous standing orders per assisted policy Order Comments: Resume previous standing orders per assisted policy Scheduling Instructions: Please specify in comments! [...] equipment/supplies recommended: None Final discharge destination: Subacute assisted with rehab care R: The patient and [...] hesitate to call the Hyperbaric Department at [phone] during clinic hours or page performance solutions specialist staff with any updates, questions, or concerns. Associated attestation - Douglas Morris II, MD - 12/14/2023 3:50 PM CDT Continuous attending physician supervision was provided throughout the hyperbaric oxygen treatment.I have reviewed and agree with the treatment note created by the Hyperbaric Medicine Fellow: Talita Patel MD. Appropriate addendums were made as needed above. Doulgas Morris II, MD, 12/14/2023 3:50 PM * Eusebio Perez, PharmJaneen - 12/13/2023 9:07 PM CDT Images from [...] VANCOMYCIN 17.0 12/13/2023 (most recent) Eusebio Perez, PharmJaneen 12/13/2023 21:07 Pager: (TelSkyRank) * Emily Hannah RN - 12/13/2023 1:07 PM CDTSummary: Discharge planning Clinical Coordinator Update Patient is medically ready for discharge back to [facility]- since 12/11. Spoke to Tabatha at [facility] today ([phone]) who reported that the patient was not [...] () of patient departure: 12/13/2023 @1530 Destination: [address] [place] [address] Type of ride: wheelchair Transportation vendor of ride: [facility] [phone] * If this ride needs to be [...] Clinical Coordinators will be informed via a TelSkyRank page. PCS form was completed in Progress [...] infection Attending provider: Igor Glover MD Insurance: [facility] Secondary insurance: [place] [employer] Height: Height: 180.3 cm (5' [...] hesitate to call the Hyperbaric Department at [phone] during clinic hours or page performance solutions specialist staff with any updates, questions, or [...] 12/12 - discussed with PharmD. HTN: Continue [facility] amlodipine. Hyperlipidemia: Continue [facility] rosuvastatin. Tobacco use disorder: Continue NRT. Hx of TBI. FEN: Regular consistent carb diet. Code status: Full code. VTE prophylaxis: VTE prophylaxis with lovenox to start 12/10. Lines: No central line. No mujica. Discharge planning: Discharg to [facility] in [place] when they're able to accept him back.Possibly [...] Glover MD, 12/12/2023 2:02 PM Page via Collective * Narcisa Tobar BRIDAL CONSULTANT - 12/12/2023 9:50 AM CDT . Care Management Follow-up Note Patient Name: Stephanie Low Date: 12/12/2023 Patient/Family Discharge Goals: Patient's Discharge Goal: back to 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 Creat continues to trend down from [...] 12/12 - discussed with PharmD. HTN: Continue [facility] amlodipine. Hyperlipidemia: Continue [facility] rosuvastatin. Tobacco use disorder: Continue NRT. Hx of TBI. FEN: Regular consistent carb diet. Code status: Full code. VTE prophylaxis: VTE prophylaxis with lovenox to start 12/10. Lines: No central line. No mujica. Discharge planning: Discharg to [facility] in [place] when they're able to accept him back.Possibly [...] Glover MD, 12/11/2023 7:34 PM Page via Collective * Eusebio Perez, PharmD - 12/11/2023 3:38 [...] recent) Eusebio Perez, Jaxon 12/11/2023 19:22 Pager: (TelAuraSense Therapeuticsq) * Lizbeth Cavazos LICSW - 12/11/2023 2:41 PM CDT Weekend Inpatient Social Work Note Summary: Weekend SW paged by bedside RN to help facilitate coordination back to TCU today. SW called Cruz Aguiar and left a voicemail. Many barriers are at play for a weekend return - patient hasIV antibiotics, he is recommended to receive 20 HBO sessions (1st today), and has [facility] Medicare Advantage (which requires prior authorization). GARY advised this likely cannot be resolved during the weekend due to the barriers listed above. Follow up needed: GARY will try to problem solve if Cruz Aguiar calls back, if not weekday team to follow up on plan for discharge. RAJ Cadena LICSW Inpatient Sharebroker - Casual (weekends only) Available via [employer] Lizbteh Cavazos LICSW, 12/11/2023 2:41 PM Addendum 1550: AGRY received update from attending physician sharing that if HBO is a barrier, it could be discontinued, and IV abx can be switched to PO for discharge. Lizbeth Cavazos LICSW, 12/11/2023 3:59 PM * Kit Mcconnell MD - 12/11/2023 8:20 AM CDT Hyperbaric Oxygen Treatment Note Isamarbrennoneduarda Devante Date: 12/11/2023 Treatment Indication(s): Non healing diabetic [...] 43.02 kg/m?? Dive # 1. No stops. 12/17 surgical site pain; PRN oxycodone administered w/ improvement of symptoms.Teeds 0R/0L pre/post Glucose 173 pre dive Plan: Minimum of 20 treatments with possibility of extension of the treatment series pending response to treatment Please do not hesitate to call the Hyperbaric Department at [phone] during clinic hours or page performance solutions specialist staff with any updates, questions, or concerns. Associated attestation - Nikolai Martinez MD - 12/11/2023 10:05 AM CDT Continuous attending physician supervision was provided throughout the hyperbaric oxygen treatment. I have reviewed and agree with the treatment note created by Fellow: Kit Mcconnell MD. * Suzy Patino DPM - 12/11/2023 7:10 AM CDT Images [...] --Patient is own MDM RECOMMENDATIONS: 1. Dressing: Dressed with Betadine 4 [...] continue to follow while admitted. Please page performance solutions specialist resident with questions. Patient was discussed with performance solutions specialist staff Interval history: Patient seen and evaluated [...] 12/12 - discussed with PharmD. HTN: Continue [facility] amlodipine. Hyperlipidemia: Continue [facility] rosuvastatin. Tobacco use disorder: Continue NRT. Hx of TBI. FEN: Regular consistent carb diet. Code status: Full code. VTE prophylaxis: VTE prophylaxis with lovenox to start 12/10. Lines: No central line. No mujica. 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 Denise Esteves Inpatient Clinical Coordinator [facility] Office: [phone] * Suzy Patino DPM - 12/10/2023 8:42 [...] Schizophrenia History of TBI --Patient is own [facility] RECOMMENDATIONS: 1. Dressing: Dressed in [...] continue to follow while admitted. Please page performance solutions specialist resident with questions. Patient was discussed with performance solutions specialist staff Interval history: Patient seen resting comfortably [...] 12/12 - discussed with PharmD. HTN: Continue [facility] amlodipine. Hyperlipidemia: Continue [facility] rosuvastatin. Tobacco use disorder: Continue NRT. Hx of TBI. FEN: Regular consistent carb diet. Code status: Full code. VTE prophylaxis: VTE prophylaxis with hep to start 12/08. Lines: No central line. No mujica. Discharge planning: Discharged to 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 [...] Glover MD, 12/09/2023 10:33 PM Page via TelemedIQ * David Mancuso PharmD - 12/09/2023 3:54 PM CDT Images [...] 12/09/2023 Expected DC Date: 12/10/2023 Social Information Air Battle Manager Used: None needed Decision Maker at Admission: Self Living Situation: skilled nursing (see comment) Patient Identified Support System: sister, significant other Services Receiving: Waivered services (see comment) Complex Medical Needs: Other (see comment) (wound care) Transportation Used for Discharge: stretcher Safety Concerns: None Behavioral Health Concerns: None Patient Family Goals Patient's Discharge Goal: back to [facility] Family' Discharge Goal: n/a Plan/Interventions Expected Discharge Disposition: [facility] Patient Information Verification Verified demographic information, including SSN, Next of Kin, and Guardianship: Yes Verified PCP: Yes If post-acute placement is needed, have vaccination status needs been addressed?: Not applicable Risks for Readmission: None Summary of pertinent information: Patient admitted from [facility] with concern for a left great to osteomyelitis that was resected 12/07. 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 Have a call out to [facility] to confirm bed hold ([phone]). Spoke to staff at his [facility] ([place] [phone]) to also update and confirm that he can return there when ultimately. Patient currently has started on HBO, this may be problematic with returning to [facility]. Emily Hannah RN, 12/09/2023 1:49 PM * [...] Schizophrenia History of TBI --Patient is own [facility] RECOMMENDATIONS: 1. Dressing: Dressed with [...] continue to follow while inpatient Please page performance solutions specialist resident with questions. Patient was discussed with performance solutions specialist staff Interval history: Patient seen and evaluated [...] Schizophrenia History of TBI --Patient is own [facility] RECOMMENDATIONS: 1. Dressing: Dressed in [...] continue to follow while inpatient Please page performance solutions specialist resident with questions. Patient was seen with performance solutions specialist staff, Dr. Palomo Interval history: Patient is immediately status post above procedure, resting comfortably in PACU. No questions or concerns this time. No Known Drug Allergies REVIEW OF SYSTEMS: ALL other ROS negative except for those noted in HPI. PHYSICAL EXAMINATIONS: Temp (24hrs), Av.2 ??C (97.2 ??F), Min:35.7 ??C (96.3 ??F), Max:36.7 ??C (98.1 ??F) General: Recovering from surgery, resting comfortably in PACU RMIA: Dressing to left foot c/d/i, no strike-through [...] male D: Stephanie Low was admitted to [address] from PACU at 1446 for Other acute osteomyelitis of leftfoot ([facility]) . Patient: alert, oriented to person, place [...] informed of Patient Valuables and Belongings Policy (#[id number]): Policy reviewed - patient/family/designee has indicated that [...] 12/12 - discussed with PharmD. HTN: Continue [facility] amlodipine. Hyperlipidemia: Continue [facility] rosuvastatin. Tobacco use disorder: Continue NRT. Hx of TBI. FEN: Regular consistent carb diet. Code status: Full code. VTE prophylaxis: VTE prophylaxis with hep to start 12/08. Lines: No central line. No mujica. Discharge planning: Discharged to 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 [...] daily Martha Mendez MD 1 patch at 12/07/232032 Facility-Administered Medications Ordered in Other Encounters Medication [...] Shafer PA-C, 12/08/2023 8:34 AM Page via Collective documented in this encounter H&P Notes * [...] -F/up cultures currently in process -NPO at NV, holding VTE ppx -AM BMP, CBC, CRP, ESR Chronic / Stable / Resolved / Ruled Out #T2DM: A1c 6.8% 07/2023. Reduce [facility] lantus to 15 U while NPO, Novolog 1U/CHO + LDSSI. Rechecking A1c. #HTN: [facility] amlodipine 10 mg daily #HLD: [facility] statin #Paranoid schizophrenia: [facility] prazosin #HILL: [facility] escitalopram 20 mg daily #Tobacco use disorder: [...] including pre-visit review of separately obtained history, mzix-cv-lnvo interaction performing medically appropriate physical exam, patientcounseling/education, [...] from the original note were not included. WOC follow up: [facility] has made recommendations. WOC will defer to surgery and sign off. 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 Discharge [...] wound healing. Message sent to primary team. [facility] Nursing follow up: Appreciate the opportunity to consult on this patient, Wound Ostomy Continence Services will sign off at this time. Please place additional 'Wound Consult' if wanting further assessment for this patient. Staff to continue to follow skin injury bundle. Escalate concerns to WOCN through additional consult or to the provider when barriers are identified. WOCN available Wednesday through Wednesday on [employer] or [phone] [facility] Nursing attempts to see patients in person when possible, but will at times complete a chart/media review in order to recommend wound treatment in a timely manner. Please reconsult [facility] if wound condition changes or the current [...] on service at PharmD General Weekend Days (TelmedIQ) or [phone]. If no response within needed timeframe, please contact central pharmacy via phone at [phone]. Planned discharge medications are: Medication List Medications [...] NEW CONSULT NOTE Stephanie Low 1980 male [id number] REASON FOR CONSULT: I was asked to [...] Prior to recent hospitalization pt [facility]. Was independent with mobility SUBJECTIVE [...] bearing restrictions, otherwise bed to chair only [facility] Appropriate: No (more OR) Participated in goal setting and treatment planning: Patient Agrees with goals and treatment plan: Question patient's ability to understand. Gracia Arredondo, PT 12/10/2023 Pager: [facility] PT Department * David Cortes MD - 12/09/2023 9:58 AM CDT Images from the original note were not included. [facility] HYPERBARIC MEDICINE CONSULTATION Referring clinician: Che Palomo [...] old poorly controlled DMII male referred to [facility] Hyperbaric medical team for consultation regarding concern [...] Hyperbaric [facility]. Please do not hesitate to call the department at [phone] during clinic hours ([phone]) or page the performance solutions specialist HYPERBARIC staff with any questions or concerns. [...] you for allowing us to participate in [facility]. [place] for Hyperbaric Medicine: [phone]. David Cortes MD * Angela Cardenas, OCN - 12/08/2023 3:00 PM CDTAssociated Order(s): CONSULT TO WOUND NURSE Images from the original note were not included. [facility] Nursing consulted by nursing for perineal wounds. 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 Discharge [...] wound healing. Message sent to primary team. [facility] Nursing follow up: later this week after surgery sees Staff to continue to follow skin injury bundle. Escalate concerns to WOCN through additional consult or to the provider when barriers are identified. WOCN available Wednesday through Wednesday on [employer] or [phone] [facility] Nursing attempts to see patients in person when possible, but will at times complete a chart/media review in order to recommend wound treatment in a timely manner. Please reconsult WOC if wound condition changes or the current treatment is thought to be no longerappropriate. Angela Cardenas CWOCN, 12/08/2023 3:05 PM * Che [...] Schizophrenia History of TBI --Patient is own [facility] RECOMMENDATIONS: 1. Dressing: Daily dressing changes with [...] continue to follow while inpatient Please page performance solutions specialist resident with questions. Patient was seen with performance solutions specialist staff, Dr. Palomo CHIEF COMPLAINT: Left foot [...] OR Date: 12/10/2023 Surgeon: Suzy Patino DPM Orthotic/Prosthetic Practitioner(s): Samina Singletary DPM PGY3 Pre-Op Diagnosis: Packed [...] 1980 Sex: male Surgeon: Che Palomo DPM Orthotic/Prosthetic Practitioner(s): Niraj Lewis DPM PGY-3 Jf Sky, MS-4 [...] has been placed please make patient n.p.o. yadiraight at 2345 for possible OR tomorrow. Labs: [...] 2023 2242 Started nicotine gum PRN Started [facility] glargine and lispro The patient remained in the emergency department through the end of my shift. Their care was signedout [id number] with the oncoming provider. Dx, DDx, Assessment and Plan was discussed with Attending Emergency Medicine Physician. Final Clinical Impression 1. Other acute osteomyelitis of left foot ([facility]) Disposition and Plan Signed out to oncoming [...] in real time. Please contact me via [employer] staff message if you note any errors requiring clarification. * Farida Beyer, SABINE - 12/07/2023 7:41 PM CDT Assumed care of pt. SNF director here as pt was reported missing when he did not return back from the clinic. Plan for admission with OR tomorrow. NPO at midnight, pt aware. * Allyssa Drummond MD - 12/07/2023 4:25 PM CDT Emergency Department Physician Note [facility] HISTORY Stephanie Low is a 43 y.o. [...] 1. Other acute osteomyelitis of left foot ([facility]) DISPOSITION & PLAN Patient remained in the [...] Toe Head to Toe Assessment Shift Summary [id number] Alert and oriented x3, unsure of the [...] Physical Therapy Inpatient Discharge Summary Stephanie Low [id number] Diagnosis Patient Active Problem List Diagnosis Fourniers [...] Therapist: Gracia Arredondo, PT Date: 12/14/2023 Pager: [facility] PT Department * Nursing Assessment - Kate Sarmiento RN - 12/14/2023 6:45 AM CDT Nursing Assessment Head to Toe Head to Toe Assessment Shift Summary Shift Summary [id number] Pt alert oriented and able to make [...] Toe Head to Toe Assessment Shift Summary [id number] Daily dressing change done per order, reported [...] Toe Head to Toe Assessment Shift Summary [id number] Alert and oriented x 4, able to [...] 3/4 in length Anterior;Left Forearm 12/08/232113 -- 4 Peripheral IV 12/10/23 20 gauge;1 [...] Toe Head to Toe Assessment Shift Summary [id number] Patient is alert and oriented x 4,RA.Vitals [...] formed (12/12/23 0018) Genitourinary Within Defined Limits Comments: Uses urinal [...] Limits * Nursing Assessment - Sravani Rosado, RN - 12/12/2023 6:50 PM CDT Nursing [...] large (12/10/23 0203) Stool Color: brown (12/12/23 001) Stool Consistency: formed (12/12/23 001) Genitourinary Within Defined Limits Musculoskeletal Assessment Within Defined Limits except for: Musculoskeletal Assessment: Range of Motion: LLE - brace/immobilizer/splint/sling/cast and amputation RLE - amputation Comments: R amputation [facility] Integumentary Assessment Within Defined Limits except for: [...] Toe Head to Toe Assessment Shift Summary [id number] Patient is alert and oriented x 4,RA.Vitals [...] Calls appropriately.Pt slept well.Continue to monitor.Filed Vitals: 12/12/23 0018 BP: 138/73 Pulse: 72 Resp: Temp: 36.6 [...] loose (12/10/23 020) Genitourinary Within Defined Limits Comments: Uses urinal [...] 12/10/2023 6:30 PM PGY-1 [facility] Pager: [phone] * Nursing Assessment - May Torres, RN - 12/10/2023 6:25 PM CDT Nursing [...] Amount: large (12/10/23 020) Stool Color: brown (12/10/23 020) Stool Consistency: loose (12/10/23202) Genitourinary Within Defined [...] Defined Limits * Nursing Assessment - Carmen Tate, RN - 12/10/2023 2:53 PM CDT Nursing [...] Singletary DPM - 12/10/2023 11:06 AM CDT [facility] Immediate Post Operative Note Note written: Day [...] alert and oriented x 4, reported headache /10, given PRN Tylenol with partial relief, denies [...] 12/09/232011, BP:(!) 155/76, Pulse:66, Resp:18, SpO2:96 % 12/09/23 1704, BP:(!) 167/80, Temp:36.2 ??C (97.2 ??F), Temp [...] 11/10/237 Perineum 28 Wound 11/10/23 Foot Left 11/10/231838 Foot 28 Wound 12/08/23 Groin 12/08/23 1415 Groin 1 Psychosocial Within Defined Limits * Nursing Assessment - Dawood Sargent RN - 12/09/2023 1:40 PM CDT Nursing Assessment Head to Toe Head to Toe Assessment Shift Summary [id number] Alert and oriented x3, unsure of the [...] less than 1 Wound 11/10/23 Incision Perineum 11/10/231706 Perineum 28 Wound 11/10/23 Foot Left 07/03/24 1839 Foot 28 Wound 12/08/23 Groin 12/08/23 1415 Groin less than 1 Psychosocial Within Defined Limits * Nursing Assessment - Aura Richadr, RN - 12/09/2023 2:26 AM CDT Nursing Assessment Head to Toe Head to Toe Assessment Shift Summary Night [id number] PT is AO x4. 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 Other acute osteomyelitis of left foot ([facility]) Eusebio Vivar MD, 12/08/2023 12:16 AM * Interval Note Provider - Shayna Schreiber MD - 12/07/2023 8:53 PM CDT Handoff Communication Note for Hospital Admission Verbal handoff received from Dr. Drummond in [facility]. Patient Class: Inpatient Cardiac Monitoring: Not needed [...] designation above. Please page the MOD via [employer] with clinical updates or status changes. Note [...] CDT Other acute osteomyelitis of left foot ([facility]) POC GLUCOSE Routine 12/10/2023 6:16 AM CDT [...] CDT Other acute osteomyelitis of left foot ([facility]) TC LAB BLOOD DRAW BY VENIPUNCTURE Routine [...] POC Glucose 255(H) 70 - 100 mg/dL [facility] POINT OF CARE Blood 12/14/2023 11:2 9 AM CDT Eusebio Vivar MD LABORATORY [facility] - POINT OF CARE [address] [place] [address], * (ABNORMAL) POC GLUCOSE (12/14/2023 6:32 AM CDT) POC Glucose 186(H) 70 - 100 mg/dL [facility] POINT OF CARE Blood 12/14/2023 6:32 AM CDT Eusebio Vivar MD LABORATORY Performing Organization Address [facility] Co de Phone Number [facility] POINT OF CARE [address] [place] [phone], * (ABNORMAL) POC GLUCOSE (12/13/2023 9:05 PM CDT) POC Glucose 175(H) 70 - 100 mg/dL [facility] POINT OF CARE Blood 12/13/2023 9:05 PM CDT Eusebio Vivar MD LABORATORY Performing Organization Address [facility] Co de Phone Number [facility] POINT OF [address] [address], * VANCOMYCIN LEVEL (12/13/2023 5:24 PM CDT) Vancomycin 17.0 mcg/mL [facility] Comment:Expected Range (Trou gh): 10-20 mcg/ml Blood 12/13/2023 5:24 PM CDT 12/13/2023 5:46 PM CDT Narrative [facility] - 12/13/2023 6:34 PM CDT Please ensure trough level drawn prior to next vancomycin dose. Thank you Peak or trough:->Trough Eusebio KolbD LABORATORY Performing Organization Address [facility] Co de Phone Number [facility] [address] [address] * (ABNORMAL) POC GLUCOSE (12/13/2023 4:00 PM CDT) POC Glucose 153(H) 70 - 100 mg/dL [facility] POINT OF CARE Blood 12/13/2023 4:00 PM CDT Eusebio Vivar MD LABORATORY Performing Organization Address [facility] Co de Phone Number [facility] POINT OF [address] [address], * (ABNORMAL) POC GLUCOSE (12/13/2023 11:47 AM CDT) POC Glucose 271(H) 70 - 100 mg/dL [facility] POINT OF CARE Blood 12/13/2023 11:4 7 AM CDT Eusebio Vivar MD LABORATORY Performing Organization Address [facility] Co de Phone Number [facility] POINT OF CARE [address] [phone], [place] * (ABNORMAL) POC GLUCOSE (12/13/2023 6:35 AM CDT) POC Glucose 204(H) 70 - 100 mg/dL [facility] POINT OF CARE Blood 12/13/2023 6:35 AM CDT Eusebio Vivar MD LABORATORY Performing Organization Address [facility] Co de Phone Number [facility] [address] [place] [address], [place] * (ABNORMAL) POC GLUCOSE (12/12/2023 8:54 PM CDT) POC Glucose 170(H) 70 - 100 mg/dL [facility] POINT [facility] Blood 12/12/2023 8:54 PM CDT Eusebio Vivar MD LABORATORY Performing Organization Address [facility] Co de Phone Number [facility] POINT [facility] [address] [place] [address], [place] * (ABNORMAL) POC GLUCOSE (12/12/2023 4:10 PM CDT) POC Glucose 252(H) 70 - 100 mg/dL [facility] POINT OF CARE Blood 12/12/2023 4:10 PM CDT Eusebio Vivar MD LABORATORY Performing Organization Address [facility] Co de Phone Number [facility] POINT OF CARE [address] [place] [address], [place] * (ABNORMAL) POC GLUCOSE (12/12/2023 11:07 AM CDT) POC Glucose 200(H) 70 - 100 mg/dL [facility] Blood 12/12/2023 11:0 7 AM CDT Eusebio Vivar MD LABORATORY Performing Organization Address [facility] de Phone Number [facility] [address] [place], [place] [phone], * (ABNORMAL) POC GLUCOSE (12/12/2023 6:42 AM CDT) POC Glucose 185(H) 70 - 100 mg/dL [facility] Blood 12/12/2023 6:42 AM CDT Eusebio Vivar MD LABORATORY Performing Organization Address [facility] de Phone Number [facility] [address] [place] [address], [place] * (ABNORMAL) POC GLUCOSE (12/11/2023 9:10 PM CDT) POC Glucose 226(H) 70 - 100 mg/dL [facility] Blood 12/11/2023 9:10 PM CDT Eusebio Vivar MD LABORATORY Performing Organization Address [facility] de Phone Number [facility] POINT [facility] [address] [place] [address], [place] * VANCOMYCIN LEVEL (12/11/2023 5:28 PM CDT) Vancomycin 19.6 mcg/mL [facility] Comment:Expected Range (Trou gh): 10-20 mcg/ml Blood 12/11/2023 5:28 PM CDT 12/11/2023 5:37 PM CDT Narrative [facility] - 12/11/2023 6:46 PM CDT Peak or trough:->Trough Igor Glover MD LABORATORY [facility] [address] [place] [address] * (ABNORMAL) POC GLUCOSE (12/11/2023 4:13 PM CDT) POC Glucose 173(H) 70 - 100 mg/dL [facility] POINT [facility] CARE Blood 12/11/2023 4:13 PM CDT Eusebio Vivar MD LABORATORY Performing Organization Address [facility]/ZIP Co de Phone Number [facility] POINT OF CARE [address] [place] [address], [place] * (ABNORMAL) POC GLUCOSE (12/11/2023 11:43 AM CDT) POC Glucose 283(H) 70 - 100 mg/dL [facility] POINT OF CARE Blood 12/11/2023 11:4 3 AM CDT Eusebio Vivar MD LABORATORY Performing Organization Address [facility] Co de Phone Number [facility] POINT OF [address] [address], [place] * (ABNORMAL) POC GLUCOSE (12/11/2023 10:28 AM CDT) POC Glucose 198(H) 70 - 100 mg/dL [facility] POINT OF CARE Blood 12/11/2023 10:2 8 AM CDT Eusebio Vivar MD LABORATORY Performing Organization Address [facility] Co de Phone Number [facility] POINT OF CARE [address] [place] [address], [place] * (ABNORMAL) POC GLUCOSE (12/11/2023 6:41 AM CDT) POC Glucose 173(H) 70 - 100 mg/dL [facility] POINT OF CARE Blood 12/11/2023 6:41 AM CDT Eusebio Vivar MD LABORATORY Performing Organization Address [facility]/ZIP Co de Phone Number [facility] POINT OF CARE [address] [place] [address], * (ABNORMAL) CBC WITH PLTS/AUTO DIFF (12/11/2023 5:50 AM CDT) WBC 8.72 4.00 - 10.00 k/cmm [facility] RBC 3.82(L) 4.60 - 6.00 m/cmm [facility] Hgb 10.6(L) 13.1 - 17.5 g/dL [facility] Hematocrit 32.4(L) 40.0 - 51.0 % [facility] MCV 84.8 80.0 - 100.0 fL [facility] MCH 27.7 25.0 - 32.0 pg [facility] MCHC 32.7 31.0 - 36.0 g/dL [facility] RDW 13.5 11.5 - 14.5 % [facility] Plt 400 150 - 400 k/cmm [facility] MPV 9.3 6.5 - 12.5 fL [facility] Automated Abs Neutrophil 4.22 1.70 - 6.50 k/cmm [facility] Comment:Preliminary ANC, Fin al Result to Follow Abs Immature Granulocyte 0.09 0.00 - 0.09 k/cmm [facility] Comment:The Immature Granulo cyte Absolute count contains metamyelocytes and myelocytes. Abs Neutrophil 4.22 1.70 - 6.50 k/cmm [facility] Abs Lymphocyte 2.59 0.80 - 4.00 k/cmm [facility] Abs Monocyte 1.00 0.20 - 1.00 k/cmm [facility] Abs Eosinophil 0.79(H) 0.00 - 0.60 k/cmm [facility] Abs Basophil 0.03 0.00 - 0.20 k/cmm [facility] Blood 12/11/2023 5:50 AM CDT 12/11/2023 6:26 AM CDT Igor Glover MD LABORATORY [facility] [address] [address] * (ABNORMAL) PANEL BASIC METABOLIC (BMP) (12/11/2023 5:50 AM CDT) CO2 25 22 - 30 mmol/L [facility] Glucose 178(H) 70 - 100 mg/dL [facility] BUN 9 6 - 20 mg/dL [facility] Creatinine 0.92 0.70 - 1.25 mg/dL [facility] Calcium 9.0 8.6 - 10.0 mg/dL [facility] Sodium 136 135 - 148 mmol/L [facility] Potassium 4.1 3.5 - 5.3 mmol/L [facility] Chloride 100 92 - 108 mmol/L [facility] eGFR (2020 CKD-EPI) 105 >=60 ml/min/1.7 3m2 [facility] Comment: The estimated glomerular filtration rate (eGFR) was calculated using the CKD-EPI 2020 creatinine equation, which does not include race as a factor. This equation is validated in individuals 18 years of age and older, and eGFR is normalized to a body surface area of 1.73m^2. AnGap 11 8 - 16 mmol/L [facility] Blood 12/11/2023 5:50 AM CDT 12/11/2023 6:25 AM CDT Igor Glover MD LABORATORY [facility] [place] [address] * (ABNORMAL) POC GLUCOSE (12/10/2023 9:03 PM CDT) [facility] POC Glucose 206(H) 70 - 100 mg/dL [facility] POINT [facility] CARE Blood 12/10/2023 9:03 PM CDT Eusebio Vivar MD LABORATORY [facility] POINT OF CARE [address] [place] [address] * (ABNORMAL) POC GLUCOSE (12/10/2023 4:16 PM CDT) [facility] POC Glucose 341(H) 70 - 100 mg/dL [facility] POINT [facility] CARE Blood 12/10/2023 4:16 PM CDT Eusebio Vivar MD LABORATORY [facility] POINT OF CARE [address] [place] [address], [place] * XR CHEST 2 VIEWS PA [...] (ABNORMAL) POC GLUCOSE (12/10/2023 12:09 PM CDT) [facility] POC Glucose 194(H) 70 - 100 mg/dL [facility] POINT [facility] CARE Blood 12/10/2023 12:0 9 PM CDT Eusebio Vivar MD LABORATORY [facility] POINT OF CARE [address] [place] [address], * SURGICAL PATHOLOGY (12/10/2023 11:07 AM CDT) [facility] SURG PATH FINAL ?Surgical Pathology Report Collection Date: ?12/10/2023 11:07 CDT ? Ordering Physician: ? SUZY PATINO Received Date: ?12/10/2023 12:07 CDT ? Accession Number: ? [id number] ? Surgical Pathology Final Report Specimen Type: [...] Regalado M.D. Attending Pathologist. DDB/DDB 12.10.2023 13:39 [facility] AP Specimen FOOT STRUCTURE / Unknown 12/10/2023 11:07 AM CDT Comment:OR: Routine gross an d microscopic examination Tissue: 1st metatarsel left foot, cut margin Site: foot Additional clinical information: Suzy Patino DPM LAB PATHOLOGY Performing Organization Address [facility] Co de Phone Number [facility] [place] [place] [address] * (ABNORMAL) POC GLUCOSE (12/10/2023 6:16 AM CDT) POC Glucose 228(H) 70 - 100 mg/dL [facility] POINT OF CARE Blood 12/10/2023 6:16 AM CDT Eusebio Vivar MD LABORATORY Performing Organization Address [facility] Co de Phone Number [facility] POINT OF CARE [address] [place] [address] * (ABNORMAL) CBC WITH PLTS/AUTO DIFF (12/10/2023 5:06 AM CDT) WBC 8.35 4.00 - 10.00 k/cmm [facility] RBC 3.81(L) 4.60 - 6.00 m/cmm [facility] Hgb 10.3(L) 13.1 - 17.5 g/dL [facility] Hematocrit 32.5(L) 40.0 - 51.0 % [facility] MCV 85.3 80.0 - 100.0 fL [facility] MCH 27.0 25.0 - 32.0 pg [facility] MCHC 31.7 31.0 - 36.0 g/dL [facility] RDW 13.4 11.5 - 14.5 % [facility] Plt 377 150 - 400 k/cmm [facility] MPV 9.4 6.5 - 12.5 fL [facility] Automated Abs Neutrophil 4.14 1.70 - 6.50 k/cmm [facility] Comment:Preliminary ANC, Fin al Result to Follow Abs Immature Granulocyte 0.08 0.00 - 0.09 k/cmm [facility] Comment:The Immature Granulo cyte Absolute count contains metamyelocytes and myelocytes. Abs Neutrophil 4.14 1.70 - 6.50 k/cmm [facility] Abs Lymphocyte 2.39 0.80 - 4.00 k/cmm [facility] Abs Monocyte 1.06(H) 0.20 - 1.00 k/cmm [facility] Abs Eosinophil 0.64(H) 0.00 - 0.60 k/cmm [facility] Abs Basophil 0.04 0.00 - 0.20 k/cmm [facility] Blood 12/10/2023 5:06 AM CDT 12/10/2023 5:40 AM CDT Igor Glover MD LABORATORY [facility] [address] [address] * (ABNORMAL) PANEL BASIC METABOLIC (BMP) (12/10/2023 5:06 AM CDT) CO2 26 22 - 30 mmol/L [facility] Glucose 204(H) 70 - 100 mg/dL [facility] BUN 11 6 - 20 mg/dL [facility] Creatinine 0.92 0.70 - 1.25 mg/dL [facility] Calcium 9.0 8.6 - 10.0 mg/dL [facility] Sodium 137 135 - 148 mmol/L [facility] Potassium 4.2 3.5 - 5.3 mmol/L [facility] Chloride 101 92 - 108 mmol/L [facility] eGFR (2020 CKD-EPI) 105 >=60 ml/min/1.7 3m2 [facility] Comment: The estimated glomerular filtration rate (eGFR) was calculated using the CKD-EPI 2020 creatinine equation, which does not include race as a factor. This equation is validated in individuals 18 years of age and older, and eGFR is normalized to a body surface area of 1.73m^2. AnGap 10 8 - 16 mmol/L [facility] Blood 12/10/2023 5:06 AM CDT 12/10/2023 5:40 AM CDT Igor Glover MD LABORATORY [facility] [place] [place] [address] * (ABNORMAL) POC GLUCOSE (12/09/2023 9:18 PM CDT) POC Glucose 204(H) 70 - 100 mg/dL [facility] POINT OF CARE Blood 12/09/2023 9:18 PM CDT Eusebio Vivar MD LABORATORY [facility] POINT OF CARE [address] [place] [address] * (ABNORMAL) PANEL BASIC METABOLIC (BMP) (12/09/2023 5:56 PM CDT) Sodium 134(L) 135 - 148 mmol/L [facility] Potassium 4.2 3.5 - 5.3 mmol/L [facility] Chloride 99 92 - 108 mmol/L [facility] CO2 23 22 - 30 mmol/L [facility] AnGap 12 8 - 16 mmol/L [facility] Glucose 246(H) 70 - 100 mg/dL [facility] BUN 13 6 - 20 mg/dL [facility] Creatinine 0.98 0.70 - 1.25 mg/dL [facility] Calcium 8.8 8.6 - 10.0 mg/dL [facility] eGFR (2020 CKD-EPI) 97 >=60 ml/min/1.7 3m2 [facility] Comment: The estimated glomerular filtration rate (eGFR) was calculated using the CKD-EPI 2020 creatinine equation, which does not include race as a factor. This equation is validated in individuals 18 years of age and older, and eGFR is normalized to a body surface area of 1.73m^2. Blood 12/09/2023 5:56 PM CDT 12/09/2023 6:26 PM CDT Igor Glover MD LABORATORY Performing Organization Address [facility] Co de Phone Number [address] [address] * VANCOMYCIN LEVEL (12/09/2023 5:56 PM CDT) Vancomycin 22.0 mcg/mL [facility] Comment:Expected Range (Trou gh): 10-20 mcg/ml Blood 12/09/2023 5:56 PM CDT 12/09/2023 6:26 PM CDT Narrative [facility] - 12/09/2023 8:14 PM CDT Peak or trough:->Trough Gwen Gamez PharmD LABORATORY Performing Organization Address [facility] Co de Phone Number [facility] [address] [address] * (ABNORMAL) POC GLUCOSE (12/09/2023 4:08 PM CDT) POC Glucose 231(H) 70 - 100 mg/dL [facility] POINT OF CARE Blood 12/09/2023 4:08 PM CDT Eusebio Vivar MD LABORATORY Performing Organization Address [facility]/State/ZIP Co de Phone Number [facility] - POINT OF CARE [address] [place] [address], [place] * (ABNORMAL) POC GLUCOSE (12/09/2023 11:13 AM CDT) POC Glucose 282(H) 70 - 100 mg/dL [facility] POINT OF CARE Blood 12/09/2023 11:1 3 AM CDT Eusebio Vivar MD LABORATORY [facility] POINT OF CARE [address] [place] [address], [place] * HBO TCO2 MEASUREMENT COMPLETE (12/09/2023 [...] Reg 2002; 10:198-207. Bridget QUIÑONEZ et al. [facility] 2009, Vol. 36(1). ? [place] 07/27/13 [...] POC Glucose 198(H) 70 - 100 mg/dL [facility] POINT OF CARE Blood 12/09/2023 6:43 AM CDT Eusebio Vivar MD LABORATORY Performing Organization Address [facility] Co de Phone Number [facility] POINT OF [address] [address], [place] * (ABNORMAL) POC GLUCOSE (12/08/2023 9:10 PM CDT) POC Glucose 268(H) 70 - 100 mg/dL [facility] POINT OF CARE Blood 12/08/2023 9:10 PM CDT Eusebio Vivar MD LABORATORY Performing Organization Address [facility] Co de Phone Number [facility] POINT OF [address] [address], [place] * (ABNORMAL) SED RATE (ESR) (12/08/2023 4:47 PM CDT) Sed Rate 120(H) 2 - 10 mm/hr [facility] Blood 12/08/2023 4:47 PM CDT 12/08/2023 5:07 PM CDT Suzy Shafer PA-C LABORATORY Performing Organization Address [facility]/ZIP Co de Phone Number [facility] [address] [address] * (ABNORMAL) PANEL BASIC METABOLIC (BMP) (12/08/2023 4:47 PM CDT) Sodium 134(L) 135 - 148 mmol/L [facility] Potassium 4.0 3.5 - 5.3 mmol/L [facility] Chloride 98 92 - 108 mmol/L [facility] CO2 24 22 - 30 mmol/L [facility] AnGap 12 8 - 16 mmol/L [facility] Glucose 247(H) 70 - 100 mg/dL [facility] BUN 16 6 - 20 mg/dL [facility] Creatinine 0.98 0.70 - 1.25 mg/dL [facility] Calcium 8.7 8.6 - 10.0 mg/dL [facility] eGFR (2020 CKD-EPI) 97 >=60 ml/min/1.7 3m2 [facility] Comment: The estimated glomerular filtration rate (eGFR) was calculated using the CKD-EPI 2020 creatinine equation, which does not include race as a factor. This equation is validated in individuals 18 years of age and older, and eGFR is normalized to a body surface area of 1.73m^2. Blood 12/08/2023 4:47 PM CDT 12/08/2023 5:07 PM CDT Suzy Shafer PA-C LABORATORY [facility] [address] [address] * (ABNORMAL) GLYCOSYLATED HGB - A1C (12/08/2023 4:47 PM CDT) Hemoglobin A1C 8.5(H) 4.0 - 5.6 % [facility] Comment: Increased risk for diabetes (prediabetes): 5.7-6.4% Diabetes >=6.5% In the absence of unequivocal hyperglycemia, diagnosis requires two abnormal test results (i.e. HbA1c and glucose) or two abnormal results from specimens collected at two different timepoints. The presence of some hemoglobin variants or red cell disorders may interfere with the measurement of hemoglobin A1c (HbA1c). Estimated Average Glucose 197(H) 68 - 114 [facility] Comment: The estimated Average Glucose (eAG) was calculated using an equation derived from a study of 507 adults with type 1, type 2, or no diabetes. Minority populations were underrepresented and children were not included. The eAG is not equivalent to a fasting glucose concentration. Blood 12/08/2023 4:47 PM CDT 12/08/2023 5:07 PM CDT Narrative [facility] - 12/08/2023 6:01 PM CDT If not done in the last 30 days. Suzy Shafer PA-C LABORATORY [facility] [address] [id number] * (ABNORMAL) CBC WITH PLATELET (12/08/2023 4:47 PM CDT) WBC 10.39(H) 4.00 - 10.00 k/cmm [facility] RBC 3.59(L) 4.60 - 6.00 m/cmm [facility] Hgb 9.8(L) 13.1 - 17.5 g/dL [facility] Hematocrit 30.8(L) 40.0 - 51.0 % [facility] MCV 85.8 80.0 - 100.0 fL [facility] MCH 27.3 25.0 - 32.0 pg [facility] MCHC 31.8 31.0 - 36.0 g/dL [facility] RDW 13.5 11.5 - 14.5 % [facility] Plt 314 150 - 400 k/cmm [facility] MPV 9.3 6.5 - 12.5 fL [facility] Blood 12/08/2023 4:47 PM CDT 12/08/2023 5:07 PM CDT Suzy Shafer PA-C LABORATORY [facility] [address] [address] * (ABNORMAL) C-REACTIVE PROTEIN (12/08/2023 4:47 PM CDT) C-Reactive Protein 77(H) <=4 mg/L [facility] Blood 12/08/2023 4:47 PM CDT 12/08/2023 5:07 PM CDT Suzy Shafer PA-C LABORATORY [facility] [address] [place] [address] * (ABNORMAL) POC GLUCOSE (12/08/2023 4:20 PM CDT) POC Glucose 204(H) 70 - 100 mg/dL [facility] CARE Blood 12/08/2023 4:20 PM CDT Eusebio Vivar MD LABORATORY Performing Organization Address City/[facility]/ZIP Co de Phone Number [facility] [address] [place] [address], [place] * (ABNORMAL) POC GLUCOSE (12/08/2023 12:35 PM CDT) POC Glucose 227(H) 70 - 100 mg/dL [facility] Blood 12/08/2023 12:3 5 PM CDT Eusebio Vivar MD LABORATORY Performing Organization Address [facility] Co de Phone Number [address] [address], [place] * (ABNORMAL) POC GLUCOSE (12/08/2023 10:02 AM CDT) POC Glucose 263(H) 70 - 100 mg/dL [facility] POINT [facility] CARE Blood 12/08/2023 10:0 2 AM CDT Eusebio Vivar MD LABORATORY Performing Organization Address [facility]/ZIP Co de Phone Number [facility] POINT [facility] [address] [place] [address], [place] * XR FOOT LEFT 3 V [...] POC Glucose 214(H) 70 - 100 mg/dL [facility] Blood 12/08/2023 8:32 AM CDT Eusebio Vivar MD LABORATORY [facility]ARE [address] [place] [address], * SURGICAL PATHOLOGY (12/08/2023 7:56 AM CDT) SURG PATH FINAL ?Surgical Pathology Report Collection Date: ?12/08/2023 07:56 CDT ?Ordering Physician: ? CHE PALOMO Received Date: ?12/08/2023 08:41 CDT ?Accession Number: ? [id number] ? Surgical Pathology Final Report Specimen Type: [...] specimen reveals a yellow, trabeculated cut surface. Frozen Meat Cutter sections are submitted following decalcification as follows: A1: Resection margin, en face A2: Full cross-section of metatarsal head (DDB) DDB/DDB 12.08.2023 9:52 Microscopic Description: Microscopic examination performed and findings are reflected in the final diagnosis. I personally examined the relevant preparations and rendered and confirmed the diagnosis. ? Signed - Tootie Mackenzie M.D. Attending Pathologist. DDB/DDB 12.08.2023 9:52 [facility] AP Specimen FOOT STRUCTURE / Unknown 12/08/2023 7:56 AM CDT Comment:OR: Routine gross an d microscopic examination Tissue: Left first metatarsal head Site: left foot Additional clinical information: evaluate cut side for osteomyelitis Che Mullent DP LAB PATHOLOGY Performing Organization Address [facility] Co de Phone Number [facility] [address] [address] * FUNGUS CULTURE:INCLUDES SUHAS (12/08/2023 7:51 AM CDT) Final Report No fungus isolated. [facility] SUHAS Prep No fungal elements seen. [facility] Bone STRUCTURE OF LEFT FOOT / Unknown 12/08/2023 7:51 AM CDT 12/08/2023 9:00 AM CDT Comment:2. Bone first metata rsal left foot Che Jonbitt DP LAB MICROBIOLOGY Performing Organization Address [facility] Co de Phone Number [facility] [address] [address] * ANAEROBE CULTURE (12/08/2023 7:51 AM CDT) Final Report No anaerobes isolated. [facility] Bone STRUCTURE OF LEFT FOOT / Unknown 12/08/2023 7:51 AM CDT 12/08/2023 9:00 AM CDT Comment:2. Bone first metata rsal left foot Che L Beth DP LAB MICROBIOLOGY Performing Organization Address [facility] de Phone Number [facility] [address] [address] * (ABNORMAL) TISSUE CULTURE:INCLUDES GRAM STAIN (12/08/2023 7:51 AM CDT) Final Report Positive Culture Few METHICILLIN RESISTANT Staphylococcus aureus (MRSA) isolated. 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 For susceptibility, see previous report on culture from wound culture collected 12/07/23. (POS) [facility] Organism METHICILLIN RESISTANT STAPHYLOCOCCUS AUREUS (MRSA)(POS) [facility] Gram Stain Report Corrected Report Positive Gram stain Rare PMN's seen. Rare gram positive cocci. Gram stain electronically reported to and acknowledged by: Dr. Niraj Lewis from OR at ??12/08/2023 10:09:09 by Jacklyn Easley MLS. Removed Pleomorphic gram variable bacilli from report. Results electronically reported to and acknowledged by: [facility] [place] 12/09/2023 12:48:27. Elizabeth Schwartz MLS. (POS) [facility] Bone STRUCTURE OF LEFT FOOT / Unknown 12/08/2023 7:51 AM CDT 12/08/2023 9:00 AM CDT Comment:2. Bone first metata rsal left foot Che Palomo [facility] LAB MICROBIOLOGY [facility] [address] [address] * (ABNORMAL) TISSUE CULTURE:INCLUDES GRAM STAIN (12/08/2023 7:51 AM CDT) Final Report Positive Culture Few METHICILLIN RESISTANT Staphylococcus aureus (MRSA) isolated. 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 For susceptibility, see previous report on culture from wound culture collected 12/07/23. Rare Corynebacterium striatum group isolated. A member of the diphtheroid bacilli. (POS) [facility] Organism METHICILLIN RESISTANT STAPHYLOCOCCUS AUREUS (MRSA)(POS) [facility] Organism CORYNEBACTERIUM STRIATUM GROUP(POS) [facility] Gram Stain Report Positive Gram stain Rare PMN's seen. Rare gram positive cocci. Gram stain electronically reported to and acknowledged by: Dr. Niraj Lewis from OR at ??12/08/2023 10:09:09 by Jacklyn Easley MLS. (POS) [facility] Tissue FOOT STRUCTURE / Unknown 12/08/2023 7:51 AM CDT Comment:Add Aerobic Narrative [facility] - 12/10/2023 2:22 PM CDT Add Aerobic Che Mullent DPM LAB MICROBIOLOGY Performing Organization Address [facility] Co de Phone Number [facility] [address] [address] * FUNGUS CULTURE:INCLUDES SUHAS (12/08/2023 7:51 AM CDT) Final Report No fungus isolated. [facility] SUHAS Prep No fungal elements seen. [facility] Tissue FOOT STRUCTURE / Unknown 12/08/2023 7:51 AM CDT Comment:Add Aerobic Narrative [facility] - 01/05/2024 8:10 AM CDT Add Aerobic Che Jonbitt DPM LAB MICROBIOLOGY Performing Organization Address [facility] Co de Phone Number [facility] [address] [address] * ANAEROBE CULTURE (12/08/2023 7:51 AM CDT) Final Report No anaerobes isolated. [facility] Tissue FOOT STRUCTURE / Unknown 12/08/2023 7:51 AM CDT Comment:Add Aerobic Narrative [facility] - 12/14/2023 9:06 AM CDT Add Aerobic Che Jonbitt DPM LAB MICROBIOLOGY Performing Organization Address [facility] Co de Phone Number [facility] [address] [address] * (ABNORMAL) POC GLUCOSE (12/08/2023 7:22 AM CDT) POC Glucose 236(H) 70 - 100 mg/dL [facility] Blood 12/08/2023 7:22 AM CDT Eusebio Vivar MD LABORATORY Performing Organization Address City[facility]/ZIP Co de Phone Number [facility]ARE [address] [place] [address], * EXTRA TUBE - BLUE (12/07/2023 4:05 PM CDT) BLUE TUBE [facility] Comment:Blue top(Sodium citr ate) tubes are kept for 3 days from the collection date. Blood 12/07/2023 4:05 PM CDT 12/07/2023 4:24 PM CDT Eusebio Vivar MD LABORATORY Performing Organization Address [facility] Co de Phone Number [facility] [address] [address] * EXTRA TUBE - DARK GREEN (12/07/2023 4:05 PM CDT) DARK GREEN TUBE Stored [facility] Comment:Dark Green tubes (Li thium Heparin) are stored in the lab for 1 day from the collection date. Blood 12/07/2023 4:05 PM CDT 12/07/2023 4:24 PM CDT Eusebio Vivar MD LABORATORY Performing Organization Address [facility] de Phone Number [facility] [address] [address] * (ABNORMAL) ED CHEMISTRY LABS(NA,K,CL,CO2,GLU,CREAT,CA-IONIZED,ANION GAP) (12/07/2023 4:05 PM CDT) Pathologist [facility] Sodium 139 135 - 148 mmol/L [facility] Chloride 97 92 - 108 mmol/L [facility] AnGap 15 8 - 16 mmol/L [facility] Glucose 284(H) 70 - 100 mg/dL [facility] ICA, Actual 4.89 4.40 - 5.20 mg/dL [facility] ICA, pH Corrected 4.74 4.40 - 5.20 mg/dL [facility] Creatinine 1.26(H) 0.70 - 1.25 mg/dL [facility] BICARB 26 22 - 26 mEq/L [facility] eGFR (2020 CKD-EPI) 72 >=60 ml/min/1.7 3m2 [facility] Comment: The estimated glomerular filtration rate (eGFR) was calculated using the CKD-EPI 2020 creatinine equation, which does not include race as a factor. This equation is validated in individuals 18 years of age and older, and eGFR is normalized to a body surface area of 1.73m^2. Potassium 4.5 3.5 - 5.3 mmol/L [facility] Blood 12/07/2023 4:05 PM CDT 12/07/2023 4:27 PM CDT Eusebio Vivar MD LABORATORY [facility] [address] [address] * (ABNORMAL) CBC WITH PLTS/AUTO DIFF (12/07/2023 4:05 PM CDT) WBC 9.80 4.00 - 10.00 k/cmm [facility] RBC 4.08(L) 4.60 - 6.00 m/cmm [facility] Hgb 11.2(L) 13.1 - 17.5 g/dL [facility] Hematocrit 34.7(L) 40.0 - 51.0 % [facility] MCV 85.0 80.0 - 100.0 fL [facility] MCH 27.5 25.0 - 32.0 pg [facility] MCHC 32.3 31.0 - 36.0 g/dL [facility] RDW 13.7 11.5 - 14.5 % [facility] Plt 324 150 - 400 k/cmm [facility] MPV 9.4 6.5 - 12.5 fL [facility] Automated Abs Neutrophil 5.37 1.70 - 6.50 k/cmm [facility] Comment:Preliminary ANC, Fin al Result to Follow Abs Immature Granulocyte 0.12(H) 0.00 - 0.09 k/cmm [facility] Comment:The Immature Granulo cyte Absolute count contains metamyelocytes and myelocytes. Abs Neutrophil 5.37 1.70 - 6.50 k/cmm [facility] Abs Lymphocyte 2.61 0.80 - 4.00 k/cmm [facility] Abs Monocyte 1.32(H) 0.20 - 1.00 k/cmm [facility] Abs Eosinophil 0.34 0.00 - 0.60 k/cmm [facility] Abs Basophil 0.04 0.00 - 0.20 k/cmm [facility] Blood 12/07/2023 4:05 PM CDT 12/07/2023 4:51 PM CDT Eusebio Vivar MD LABORATORY Performing Organization Address [facility]/ZIP Co de Phone Number [address] [address] * LACTATE (LACTIC ACID) (12/07/2023 4:05 PM CDT) Lactate 2.1 0.7 - 2.1 mmol/L [facility] Blood 12/07/2023 4:05 PM CDT 12/07/2023 4:27 PM CDT Narrative [facility] - 12/07/2023 4:27 PM CDT Send specimen on ice! Eusebio Vivar MD LABORATORY Performing Organization Address [facility] Co de Phone Number [address] [address] * (ABNORMAL) C-REACTIVE PROTEIN (12/07/2023 4:05 PM CDT) C-Reactive Protein 82(H) <=4 mg/L [facility] Blood 12/07/2023 4:05 PM CDT 12/07/2023 4:51 PM CDT Eusebio Vivar MD LABORATORY Performing Organization Address [facility] Co de Phone Number [address] [address] * (ABNORMAL) SED RATE (ESR) (12/07/2023 4:05 PM CDT) Sed Rate 120(H) 2 - 10 mm/hr [facility] Blood 12/07/2023 4:05 PM CDT 12/07/2023 4:51 PM CDT Eusebio Vivar MD LABORATORY Performing Organization Address City[facility] Co de Phone Number [address] [address] * BLOOD AEROBIC/ANAEROBIC CULTURE (12/07/2023 4:05 PM CDT) Final Report No growth after 5 days. [facility] Blood (Peripheral) 12/07/2023 4:05 PM CDT 12/07/2023 7:55 PM CDT Eusebio Vivar MD LAB MICROBIOLOGY [facility] [address] [place] [address] documented in this encounter Visit Diagnoses Diagnosis [...] 0.5% injection INTRA-OP ONCE PRN, Starting on Wed12/08/23 at 0809, Until Wed12/08/23 at 0829 Given 12/08/2023 8:09 AM CDT 20 mL cyclobenzaprine (FLEXERIL) tablet 10 mg 10 mg, [...] 10 mg, Oral, TID, First dose on 12/12/23 at 1015, Until Discontinued 1233 (Given - Provider: Sravani Rosado RN)1545 (Given - Provider: Sravani Rosado RN)2107 (Given - Provider: Susie Matson, SABINE) 0917 (Delayed (keeps Due time) - Provider: Natasha Vivar RN - Reason: Patient not in room - Comment: HBO)1008 (Given - Provider: Natasha Vivar RN)1404 (Given - Provider: Natasha Vivar RN)2014 (Given - Provider: Kate Sarmiento, SABINE) 1036 [...] dose on 12/11/23 at 2000, Until Discontinued 0919 (Given - Provider: Sravani Rosado RN)2103 (Given - Provider: Susie Matson, SABINE) 0917 (Delayed (keeps Due time) - Provider: Natasha Vivar RN - Reason: Patient not in room - Comment: HBO)1007 (Given - Provider: Natasha Vivar RN)2013 (Given - Provider: Kate Sarmiento RN) 1036 (Given - Provider: Dawood Sargent, SABINE) escitalopram (LEXAPRO) tablet 20 mg 20 mg, Oral, BEDTIME, First dose on Wed12/08/23 at 2000, Until Discontinued 2102 (Given - Provider: Susie Matson, RN) 2014 (Given - Provider: Kate Sarmiento, [...] dose on Wed12/08/23 at 0820, Until Discontinued 09 (Dual Sign-Off - Provider: Laura Sarabia RN)0917 [...] Natasha Vivar RN)1205 (Dual Sign-Off - Provider: Natasha Vivar, SABINE)1209 (Given - Provider: Natasha Vivar RN)1725 (Dual [...] modification) on Wed12/11/23 at 0800, Until Discontinued 09 (Dual Sign-Off - Provider: Laura Sarabia RN)0917 [...] RN) 1029 (Dual Sign-Off - Provider: Dawood Sargent, SABINE)1036 (Given - Provider: Dawood Sargent, SABINE) loratadine (CLARITIN) tablet 10 mg 10 mg, Oral, DAILY, First dose on Wed12/09/23 at 0800, Until Discontinued 0921 (Given - Provider: Sravani Rosado, SABINE) 0919 (Delayed (keeps Due time) - Provider: [...] RN) 1035 (Patch removed - Provider: Dawood Sargent, SABINE)1036 (Patch applied - Provider: Dawood Sargent RN)1238 (Due: Patch removed - Provider: JENNIFER NARAYANAN, [facility] - Comment: Time automatically adjusted from order [...] Rosado RN)1843 (New Bag - Provider: Dawood Sargent, RN)2030 (Infusion completed - Provider: Susei Matson RN) 0556 (New Bag - Provider: Susie Matson RN)0920 (Infusion completed - Provider: Natasha Vivar RN)1759 (New Bag - Provider: Natasha Vivar, SABINE)1930 (Infusion completed - Provider: Kate Sramiento RN) 0523 (New Bag - Provider: Kate Sarmiento RN)0735 (Infusion completed - Provider: Dawood Sargent RN) PRN Medication Order 12/12/2023 12/13/2023 12/14/2023 acetaminophen (TYLENOL) tablet 650 mg 650 mg, Oral, Q6H PRN, Starting on Wed12/08/23 at 0819, Until Wed12/14/23 at 1538, Headache, Temp > 38.6 C, Mild Pain (Use First) 0921 (Given - Provider: Sravani Rosado RN)2112 (Given - Provider: Susie Matson RN) 0916 (Delayed (keeps Due time) - Provider: Natasha Vivar RN - Reason: Patient not in room - Comment: HBO)1008 (Given - Provider: Natasha Vivar RN)1404 (Given - Provider: Natasha Vivar RN) 1145 (Given - Provider: Dawood Sargent RN) nicotine polacrilex (NICORELIEF) gum 2 mg 2 [...] Vivar RN) 1145 (Given - Provider: Dawood Sargent [...]
--- OUTSIDE RECORDS SUMMARY | 2024-02-07 08:50 | XMS_ITS | Encounter Summary ---
Author Organization [facility] Address [address] [place] [phone] Phone Care Team Providers Care Track Repair Person Name Role Phone Unavailable Primary Care Provider Unavailabl e Reason for Visit * Reason Comments Post Op * Auth/Cert (Routine) Specialty Diagnoses / Procedures Referred By Katherine tidwell Referred To Contact SURGERY Diagnoses Other acute osteomyelitis of left foot ([facility]) Eusebio Vivar MD [address] [place] [address] [address] Referral ID Status Reason Start Date Expiration Date Visits Re quested Visits Authorized [id number] 1 1 Encounter Details Date Type Department Care Team ([facility] st Contact Info) Description 12/07/2023 2:30 PM CDT Office Visit Clinic & Specialty Center Pod[facility] Surgery [facility] [address] [address] Che Campos DPM [address] [address] 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 Podiatric Surgery - Clinic Note Stephanie Low : 1980 Sex: male 12/07/2023 14:38 Preferred Name: Matt Medical Decision Making: New Acute Osteomyelitis of first metatarsal head, left Worsening Incision dehiscence due to noncompliance, left New Cellulitis to level of 1st MPJ, [...] Schizophrenia History of TBI --Patient is own [facility] Clinic plan: -Advised patient that incision dehiscence is worsening and now probing to bone with dishwater appearing drainage and cellulitis -New left foot x-ray was done clinic. I independently interpreted images: New cortical destruction at the first metatarsal head most consistent with osteomyelitic changes. No concern for gas-forming infection. -Advised patient we strongly recommend admission due to the worsening cellulitis, incision dehiscence, and new first metatarsal head osteomyelitis seen on x-ray -Betadine, 4 x 4 gauze, Kerlix dressing applied. Placed back in postoperative shoe -Patient was agreeable to admission and was transported to emergency department by nursing staff -Called MOD who advised admission through emergency department will allow for quicker treatment -Soft tissue culture procured from deep left incision dehiscence with sterile pickups. Sent to the lab -Wound was debrided, procedure note below. Procedure: Patient verbally consented to debridement today. Confirmed correct location with patient. After sterile prep with betadine, attention directed to the left medial forefoot, excisional debridement witha #15 blade down to and including the level of subcutaneous tissue. Pt tolerated well with no ill effects. Dressing as noted above. Inpatient plan: -Plan for OR in the coming days. OR availability difficult at this time so we are working with staff to establish and date. Please keep n.p.o. tonight 7-30 at 2345 for possible OR tomorrow. -Reviewed operative plan with patient, advised this will likely be multi staged surgery given concern for infection. Patient was advised of conservative treatment options and associated risks which includes worsening infection, loss of foot, loss of limb, loss of life. Patient agreeable to surgery.Consented for serial irrigation debridement of all nonviable soft tissue and bone, partial metatarsal amputation on the left side -Recommend broad-spectrum IV antibiotics. Soft tissue culture was taken from clinic. -Recommend infectious labs and workup while in the ED -Nonweightbearing to the left lower extremity in postoperative shoe -No need for arterial US. Patient had AUS 11/16 and no additional intervention indicated at this time -Patient is [facility] and is own medical decision maker. Confirmed last admission -XR was completed in clinic today. No additional XR needed in ED -This is a low risk surgery with known risk factors including osteomyelitis and nonhealing amputation site. Please page personnel supervisor resident with any questions or concerns Chief Complaint and History of Present Illness: [...] systemic signs of infection. No new complaints. Physical Exam: There were no vitals filed for this visit. Estimated body mass index is 43.97 kg/m?? as calculated from the following: Height as of 11/12/23: 1.803 m (5' 10.98). Weight as of 11/21/23: 142.9 kg (315 lb 1.6 oz). General: No apparent distress, Alert and oriented [...] upon exam Right TMA Left hallux amputation Samina Singletary DPM, 12/07/2023 2:38 PM PODIATRIC SURGERY FACULTY NOTE (GC) I saw and evaluated the patient on the date of the resident's note. I discussed with the resident and agree with the resident's findings and plan documented in the resident's note. Any revisions by me are documented in the note. I was present during the procedure listed above in the resident documentation. 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 Rare Corynebacterium striatum group isolated. A member of the diphtheroid bacilli. (POS) [facility] Organism METHICILLIN RESISTANT STAPHYLOCOCCUS AUREUS (MRSA)(POS) [facility] Organism CORYNEBACTERIUM STRIATUM GROUP(POS) [facility] Gram Stain Report No PMN's seen. No organisms seen. [facility] Swab STRUCTURE OF LEFT FOOT / Unknown 12/07/2023 3:00 PM CDT 12/07/2023 5:23 PM CDT Narrative [facility] - 12/10/2023 10:38 AM CDT Left [...] 1: Sensitive Che Campos DPM LAB MICROBIOLOGY [facility] [address] [address] documented in this encounter Visit Diagnoses Diagnosis 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CMS/HHS)- Primary Cellulitis of left lower extremity Cellulitis and abscess of leg, except foot 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CMS/HHS) documented in this encounter Additional Health Concerns Infection Onset Date Last Indicated Resolved Time 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
--- OUTSIDE RECORDS SUMMARY | 2024-02-07 08:50 | XMS_ITS | Encounter Summary ---
Author Organization [facility] Address [address] [place] [id number] Phone Care Team Providers Care Vegetable Grader Name Role Phone Unavailable Primary Care Provider Unavailabl e Reason for Visit * Reason Onset Date Comments Post-op Complications 12/02/2023 Encounter Details Date Type Department Care Team (Late st Contact Info) Description 12/02/2023 [facility] [address] [address] Angi Aranda, RN [address] [place] [address] Post-op Complications Social History Tobacco Use Types Packs/Day Years Used Date Smoking Tobacco: Never Assessed Sex and Gender Information Value Date Recorded Sex Assigned at Not on file Gender Identity Not on file Sexual Orientation Not on file documented as of this encounter Miscellaneous Notes * Telephone Encounter - Imelda Mora RN - 12/03/2023 8:45 AM CDT Called number provided and there was no answer. Called the DON and left message to let her know that patient has been scheduled to see Dr. Campos on December 06. Instructed her to monitor forsigns and symptoms of infection and call with any change in condition. Gave clinic number for her to call and confirm appointment date. Encouraged her to call with any questions. Imelda Mora RN, 12/03/2023 8:49 AM * Telephone Encounter - Angi Aranda RN - 12/02/2023 12:38 PM CDT D: Received call initially from Farida from [facility] regarding patient, stating that patient's wound on his left operative foot/toe appears to be dehissed. States the patient receives dressingchanges every day on the left foot. Was transferred to [facility] to get more information [facility] states that the patient arrived sic days ago and that the area appeared open when he initially arrived to the facility, but that it is further dehissing. Currently there is an area of 5 x 3 cm that is dehissed and that there are 8 sutures that she can see, 3 that are stretched. There is not much bleeding, but there is serosanguinous drainage. There is 80% slough tissue and 20% granulation tissue in the wound. Pedal pulses are positive with a doppler. Denies fever. BS have been in the mid 200's as patient isnot compliant with their diet. Patient has an appointment scheduled with surgery 12/24/23, but staff are wondering if he should be seen sooner. They are also wondering what the patient's weight bearing status should be. A: Reviewed charting from [facility] from 11/10/23. Attempted to contact surgery. Routing message to surgery clinic for review and return call R: Verbalized understanding. P: Pending. Reason for Disposition [1] Caller has URGENT question AND [2] triager unable to answer question Protocols used: Post-Op Symptoms and [id number] documented in this encounter Plan of Treatment Not on file documented as of this encounter Visit Diagnoses Not on filedocumented in this encounter Additional Health Concerns Infection Onset Date Last Indicated Resolved Time 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
--- OUTSIDE RECORDS SUMMARY | 2024-02-07 08:52 | XMS_ITS | Encounter Summary ---
Author Organization [facility] Address [address] [place] [id number] Phone Care Team Providers Care Heating And Cooling Technician Name Role Phone Unavailable Primary Care Provider Unavailabl e Encounter Details Date Type Department Care Team (Late st Contact Info) Description 11/17/2023 Orders Only Unspecified Department [place] Unknown, Provider Social History Tobacco Use Types Packs/Day Years Used Date Smoking Tobacco: Never Assessed Humiliation, Afraid, Rape, and Kick questionnair e [...] the money to buy more. Never true 07/31/20 24 Within the past 12 months, t [...] Procedure Name Priority Date/Time Associated Diagnosis Comments TELEMETRY STRIPS 11/17/2023 11:5 0 PM CDT documented in this encounter Results * TELEMETRY STRIPS (11/17/2023 11:50 PM CDT) Narrative 11/17/2023 11:50 PM CDT Ordered by an unspecified provider. 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
--- OUTSIDE RECORDS SUMMARY | 2024-02-07 08:52 | XMS_ITS | Encounter Summary ---
Author Organization [facility] Address [address] [place] [phone] Phone Care Team Providers Care Business Systems Developer Name Role Phone Unavailable Primary Care Provider [...] Date/Time Associated Diagnosis Comments TELEMETRY STRIPS 11/17/2023 8:33 PM CDT documented in this encounter Results * TELEMETRY STRIPS (11/17/2023 8:33 PM CDT) Narrative 11/17/2023 8:33 PM CDT Ordered by an unspecified provider. 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
--- OUTSIDE RECORDS SUMMARY | 2024-02-07 08:52 | XMS_ITS | Encounter Summary ---
Author Organization [facility] Address [address] [place] [phone] Phone Care Team Providers Care Resolute Professional Name Role Phone Unavailable Primary Care Provider Unavailabl e Encounter Details Date Type Department Care Team (Late st Contact Info) Description 11/18/2023 Orders Only Unspecified Department [place] Unknown, [...] Priority Date/Time Associated Diagnosis Comments TELEMETRY STRIPS 11/18/2023 9:21 AM CDT documented in this encounter Results * TELEMETRY STRIPS (11/18/2023 9:21 AM CDT) Narrative 11/18/2023 9:21 AM CDT Ordered by an unspecified provider. 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
--- OUTSIDE RECORDS SUMMARY | 2024-02-07 08:52 | XMS_ITS | Encounter Summary ---
Author Organization [facility] Address [address] [place] [phone] Phone Care Team Providers Care Claim Clinician Name Role Phone Unavailable Primary Care Provider Unavailabl e Reason for Referral * Consult/Test/Treat (Urgent) - New Request Specialty Diagnoses / Procedures Referred By Contac t Referred To Contact Physical Therapy / PHYSICAL THERAPY Diagnoses 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HHS) Hyperglycemia Foot infection 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 APRN, CNP [address] [place] [address] Referral, [place] [address] Referral ID Status Reason Start Date Expiration Date V isits Requested Visits Authorized [id number] New Request 11/24/2023 11/24/2024 1 1 * Consult/Test/Treat (Routine) - New Request Specialty Diagnoses / Procedures Referred By Contac t Referred To Contact Diagnoses 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HHS) Hyperglycemia Foot infection 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 APRN, CNP [address] [place] [address] Referral, [place] [address] Referral ID Status Reason Start Date Expiration Date V isits Requested Visits Authorized [id number] New Request 11/24/2023 11/24/2024 1 1 Reason for Visit * Reason Comments Fever Penis/Scrotal Problem Toe Problem * Auth/Cert (Routine) Specialty Diagnoses / Procedures Referred By Contac t Referred To Contact SURGERY Diagnoses 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HHS) Hyperglycemia Zac Churchill MD [address] [place] [address] [address] [facility] [address] [place] [address] Referral ID Status Reason Start Date Expiration Date Visits Re quested Visits Authorized [id number] 1 1 Encounter Details Date Type Department Care Team (Latest Contact Info) Description 11/10/2023 2:28 PM CDT - 11/25/2023 12:02 PM CDT Hospital Encounter [facility] [place]/Trauma/Chinedu ro 2 [address] [facility] [address] [place], [place] [id number] Jessica Grullon MD [address] [facility] [address] [place], [place] [id number] Zac Churchill MD [address] [facility] [address] [place], [place] [id number] 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HHS) Discharge Disposition: Discharged/transd to SNF with Medicare certification Social History Tobacco Use Types Packs/Day Years Used Date Smoking Tobacco: Never Assessed Sex and Gender Information Value Date Recorded Sex Assigned at Not on file Gender Identity Not on file Sexual Orientation Not on file documented as of this encounter Last Filed Vital Signs Vital Sign Reading Time Taken Comments Blood Pressure 149/83 11/25/2023 7:25 AM CDT Pulse 81 11/25/2023 7:25 AM CDT Temperature 36.7 ??C (98.1 ??F) 11/25/2023 7:25 AM CD T Respiratory Rate 18 11/25/2023 7:25 AM CDT Oxygen Saturation 95% 11/25/2023 7:25 AM CDT Inhaled Oxygen Concentration - - Weight 142.9 kg (315 lb 1.6 oz) 11/21/2023 8:00 AM CDT Height 180.3 cm (5' 10.98) 11/12/2023 2:06 PM C DT Body Mass Index 43.97 11/12/2023 2:06 PM CDT documented in this encounter Discharge Summaries * 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 APRN, TAX MANAGER PUBLIC - 11/25/2023 7:37 AM CDT GENERAL SURGERY DISCHARGE 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 Attending Staff: Zac Churchill MD Significant physician provider(s): Jay Ibanez MD ; Donovan Sloan MD; Che Palomo DPM; Afshan Sims DPM; Paula Black DPM; Sophie Barajas MD; Shani Shaw MD; Scar Leyva MD No Known Drug Allergies ADMISSION DIAGNOSIS: Fourniers gangrene DISCHARGE DIAGNOSIS (include any new and/or incidental findings): Principal Problem: 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HHS) Active Problems: Hyperglycemia At risk for sexually transmitted infection due to unprotected sex Resolved Problems: * No resolved hospital problems. * Incidental Findings: None. Operations/Procedures: Date: 11/11/2023 Procedure: Sharp excisional debridement of perineal necrotizing fasciitis Date:11/17/2023 Procedure: Hallux amputation, left foot HOSPITAL COURSE: Matt Low is a 43 y.o. male with PMH of T2DM, prior TMA or right foot, HTN, paranoid schizophrenia, situs inversus, tobacco use, obesity, admitted on 11/10/2023 as a transfer from OSH for emergent surgical debridement for demar's gangrene. Was taken to the OR for perineal debridement on 11/10/2023 and 11/12/2023. No further debridement is necessary. Current treatment is wet-to-dry dressings withVashe to the perineum. Patient also had some necrotic tissue on the first metatarsal on the left foot. Podiatry took the patient to the OR and amputated the left hallux. His hospitalization has been complicated with HTN, uncontrolled DMII and JANEL but the medicine team has helped manage his chronic conditions. Per the medicine team and podiatry have signed off with discharge recommendations. Will be discharging to SNF for wound care. At the time of discharge pt's pain was well controlled on PO pain medications, ambulating independently w/out difficulty, tolerating PO intake w/o N/V, voiding w/out difficulty, and bowel function present. Patient will follow up with 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 APRN, TAX MANAGER PUBLIC Malnutrition Weight: (!) 142.9 kg (315 lb 1.6 oz) Wt Change from Previous: 0 Kg Wt Change from Admit: 2.43 Kg % Wt Change from Adm: 1.73 % [place] Body Wt (IBW) Male (kg): 75.26 kg PENDING TESTS RESULTS: None PHYSICAL EXAMINATION: BP 149/83 (Cuff Location: Right Arm) Pulse 81 Temp 36.7 ??C (98.1 ??F) (Tympanic) Resp 18 Ht 1.803 m () Wt (!) 142.9 kg (315 lb 1.6 oz) SpO2 95% BMI 43.97 kg/m?? Estimated body mass index is 43.97 kg/m?? as calculated from the following: Height as of this encounter: 1.803 m (). Weight as of this encounter: 142.9 kg (315 lb 1.6 oz). Physical Examination: General: Up in chair having lunch, not in acute distress. HEENT: Normocephalic, no ocular or otic drainage, no rhinorrhea CV: Rate as noted, regular rhythm, no murmur or rubs., S1/S2 present on auscultation. No PeripheralEdema. Pulm: Lung sounds present bilaterally, no wheezes or rales on auscultation. Unlabored Respirations.On Room Air. Abd: Abdomen soft, non-tender, non-distended. BS x 4 - active; has a perineal wound with the dressing clean and dry. No signs of infection. Msk: Full range of motion present in all four extremities. Left hallux amputation-dressing is cleandry and intact Skin: Warm, dry, intact. Neuro: Alert, oriented x 3. No gross focal deficits Ballet Professor Needed: no PLANNED DISCHARGE ORDERS: Suture/Sharon: None Wound Care Plan: Location: Perineal; Dressing: Wet to dry with Vashe Location: Left hallux.; Dressing: apply dry 4x4 gauze to the incision and the anterior ankle. Please lay open and flat 4x4 gauze to the entire foot followed by ABD over the incision. Then gently wrapwith kerlex securing around ankle. Then gently wrap with 4inch gabriella and reapply shoe. Drains Present: None Lines: None Activity Limitations: No limitations Anticoagulation Plan: None Return to Work Recommendations: To be determined at Surgery clinic follow up clinic follow-up appointment. Other Inctructions &&& RECOMMENDATIONS AND FOLLOWUP: General: Surgery: 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 APRN, CNP on 12/24/23 Primary Care Physician: Follow up as needed Referrals: None Consultants: Not applicable READMISSION PLANNED WITHIN 30 DAYS OF DISCHARGE? No DISCHARGE ORDERS HIV COMBO HIV COMBO HEPATITIS C ANTIBODY WITH CONDITIONAL PCR Referral to Occupational Therapy Referral to Physical Therapy Vital Signs - Per Facility protocol Order Notes Obtain vital signs daily for seven days, then weekly for four weeks, then monthly thereafter unless directed otherwise. A Provider has reviewed and approved of plan of care Question Response Notes A Provider has reviewed and approved of plan of care? Yes Okay for Alf Facility standing orders? Question Response Notes OK for Alf Facility house standing orders? Yes Other Nursing orders (Please specify in comments) Order Notes Other Nursing orders Groin Wound Dressing change Nursing to change the dressing daily and as needed. Check to make sure the dressing is in place every shift. - Pack the groin incision with vashe soaked kerlix - Cover with a dry Kerlix and ABD. - Have the patient wear a Mesh underwear. Left foot great Toe Daily dressing change Please apply dry 4x4 gauze to the incision and the anterior ankle. Please lay open and flat 4x4 gauze to the entire foot followed by ABD over the incision. Then gently wrap with kerlex securing around ankle. Then gently wrap with 4inch gabriella and reapply shoe. Give Mantoux unless current or contraindicated. Resume previous standing orders per [facility] policy Order Notes Resume previous standing orders per [facility] policy Patient is on a Consistent Carbohydrate diet at the following level Question Response Notes What Level should the Consistent Carbohydrate Diet be for Adult Healthcare Facility? Med Give DPT unless Current or Contraindicated CODE STATUS Full Code Question Response Notes Does the Patient have preferences regarding life sustaining measures (these options only apply whenthe patient has a pulse) No Discussed Code Status With Whom? Patient Health Care Directive and/or Previous Code/End of Life Pref Reviewed? No URINE CHLAMYDIA AND NEISSERIAE GONORRHOEAE AMPLIFICATION Order Notes For Urines, use first void. Discharge Diagnosis Question Response Notes Patient aware of diagnosis? yes Weight - Per Facility Protocol Order Notes Obtain weekly weights for four weeks, then monthly thereafter unless directed otherwise Discharge condition Question Response Notes Discharge condition? Improving Rehab Potential Question Response Notes Rehab potential? Excellent Is the patient free of Communicable Disease? Question Response Notes Is the patient free from communicable disease No MRSA Discharge Potential Question Response Notes Discharge potential? Length of Stay 30-90 days Admission H&P Question Response Notes Is admission H&P valid? yes Discharge Summary Enclosed Question Response Notes Discharge summary enclosed? Yes Why you were at the hospital: Order Notes You were in the hospital emergent surgical debridement for demar's gangrene. When should I be concerned? Order Notes Go to the Emergency Department or call 911 IF: -- you have redness, swelling, or severe pain in one or both of your legs -- you have chest pain or shortness of breath Clinic hours (8AM - 4:30PM, M-F): Call the Surgery Clinic at [phone] After hours or on Holidays: Call the [facility] bottom saw operator . Ask the bottom saw operator to page the general surgery resident director of recruitment and admissions. IF: -- you feel you are getting worse or having an increase in problems -- you have new, increased, or different drainage from your incision -- your incision has any signs of infection (increasing redness, swelling, tenderness/pain, warmth,change in appearance) -- your temperature is higher than 101.5 F. (taken by mouth) and lasts more than 12 hours -- you have a lot of vomiting or diarrhea (loose watery stools) - especially if your are unable to keep your medicines down -- you have no stool in 3 days -- you do not urinate for 8-12 hours or the urine is very dark -- you have any other concerns It is normal to have: -- a small amount of bleeding from your incision the first few days -- pain, bruising, and swelling under the incision -- numbness of the skin around your incision. -- a small fever -- mild nausea Please keep the appointments that have already been made. Order Notes -- Please keep the appointments that have already been made. Up as Tolerated Order Notes -- Rest is an important part of healing. Save your energy by spreading out activities that make you tired. Rest as needed. -- Slowly increase your level of activity. Fall safety: Order Notes - If prescribed, use your cane, walker, or crutches as directed. - Consider carrying a phone (cordless or cellular) with you at all times in case of an emergency - Reduce your chance of falling in your home by: -- removing throw rugs -- using a night light -- clearing the path from your bed to the bathroom. Regular diet Order Notes -- Eat a wide variety of foods, including fruits and vegetables, dairy, grains and meats. Consistent Carbohydrate (Diabetic) Diet Order Notes -- Carbohydrates include milks, fruits, starches (such as bread, cereal, potatoes and pasta); peas and corn; and sweets and desserts. Eat these foods in moderation. -- Eat balanced meals with fruits, vegetables, starches, meats and milk products. -- Limit foods high in calories like cake, candy, cookies, pie and regular soda. -- Choose sugar-free beverages. -- Eat regular meals and don't skip meals. Caring for your wound or incision Order Notes Groin Wound Dressing change Nursing to change the dressing daily and as needed. Check to make sure the dressing is in place every shift. - Pack the groin incision with vashe soaked kerlix - Cover with a dry Kerlix and ABD. - Have the patient wear a Mesh underwear. Left foot great Toe Daily dressing change Please apply dry 4x4 gauze to the incision and the anterior ankle. Please lay open and flat 4x4 gauze to the entire foot followed by ABD over the incision. Then gently wrap with kerlex securing around ankle. Then gently wrap with 4inch gabriella and reapply shoe. Taper pain medicine Order Notes Suggestions for tapering your pain medicine: -- As your pain decreases, you can go for longer times between doses. Or, take one pill instead of two. -- Take the medicine at the time of the day when you most often feel pain. This may be: when you wake up in the morning, before you start certain activities, or when you are ready for bed. Acetaminophen (Tylenol) Safety Order Notes -- Read all labels for prescription and Qxba-gsn-kilqijk medicines. Ask the pharmacist if your prescription pain medicine contains acetaminophen. -- Do not take more than one medicine that contains acetaminophen at a time. -- Do not take more of an acetaminophen-containing medicine than directed by your provider. Adults should not take more than 2 tablets at a time and no more than 3000 mg in a 24 hour period. For children, see label or package information or ask a pharmacist, and do not give more than 5 doses in 24 hours. -- Do not drink alcohol when taking medicines that contain acetaminophen. -- Stop taking your medication and seek medical help immediately if you: ---- Think you have taken more acetaminophen than directed ---- Have an allergic reaction such as swelling of the face, mouth, and throat, difficulty breathing, itching, or rash Sedation medication Order Notes You have received medication for sedation; -- You may NOT drive or operate mechanical equipment until 12 hours after your procedure. -- A responsible adult should remain with you for at least 12 hours after your procedure. -- Do not drink alcohol for at least 24 hours after your procedure. Medication List START taking these medications amLODIPine 10 mg tablet Commonly known as: NORVASC Take 1 tablet (10 mg) by mouth daily. Indications: High Blood Pressure Disorder bisacodyl 10 mg suppository Commonly known as: DULCOLAX 1 suppository (10 mg) by Rectal route daily as needed for Constipation. Indications: Constipation cyclobenzaprine 10 mg Commonly known as: FLEXERIL Take 1 tablet (10 mg) by mouth 3 times daily. Indications: Muscle Spasm insulin GLARGINE 100 units/mL injection vial Commonly known as: LANTUS Inject 30 UNITS subcutaneously every twenty-four hours. Indications: Type 2 Diabetes Replaces: insulin GLARGINE 100 units/mL Sopn SoloStar pen nicotine 14 mg/ 24hr Patch 24 hr [...] needed for Nausea/Vomiting. Indications: Nausea and Vomiting oxyCODONE 5 mg tablet Commonly known as: ROXICODONE Take 1-2 tablets (5-10 mg) by mouth every 6 hours as needed for Pain. Indications: Acute Pain polyethylene glycol 3350 17 g Packet Commonly known as: MIRALAX;GLYCOLAX Take 17 g by mouth daily. Indications: ConstipationTake 1 capful to 17 gm zo mixed with full glass of water every day as directed. sennosides 17.2 mg Tabs Commonly known as: SENOKOT Take 1 tablet (17.2 mg) by mouth twice daily. CHANGE how you take these medications acetaminophen 325 mg tablet Commonly known as: TYLENOL Take 3 tablets (975 mg) by mouth 3 times daily. Indications: Fever, Pain What changed: medication strength how much to take when to take this reasons to take this docusate sodium 100 mg capsule Commonly known as: COLACE Take 1 capsule (100 mg) by mouth twice daily as needed for Constipation. What changed: reasons to take this escitalopram 20 mg tablet Commonly known as: LEXAPRO Take 1 tablet (20 mg) by mouth at bedtime. Indications: Generalized Anxiety Disorder What changed: when to take this insulin LISPRO 100 UNIT/ML Kwikpen Commonly known as: HumaLOG KwikPen Inject 6 UNITS subcutaneously 3 times daily before meals. What changed: how much to take CONTINUE taking these medications chlorhexidine 0.12% solution Commonly known as: PERIDEX Swish and spit 15 mL by mouth daily. Indications: Gum Inflammation hydrOXYzine pamoate 25 mg capsule Commonly known [...] as needed for Constipation. Indications: Acid Indigestion prazosin 1 mg Capsule Commonly known as: MINIPRESS Take 1 capsule (1 mg) by mouth at bedtime. Indications: High Blood Pressure Disorder rosuvastatin 10 mg tablet Commonly known as: CRESTOR Take 1 tablet (10 mg) by mouth at bedtime. Indications: Elevation of Both Cholesterol and Triglycerides in Blood traZODone 50 mg tablet Commonly known as: DESYREL Take 1 tablet (50 mg) by mouth at bedtime. Indications: Trouble Sleeping STOP taking these medications ciprofloxacin 500 mg tablet Commonly known as: CIPRO ibuprofen 800 mg Tabs Commonly known as: MOTRIN;ADVIL insulin GLARGINE 100 units/mL Sopn SoloStar pen Commonly known as: LANTUS SOLOSTAR Replaced by: insulin GLARGINE 100 units/mL injection vial losartan 50 mg Tabs Commonly known as: COZAAR metFORMIN 500 mg Tabs Commonly known as: GLUCOPHAGE Where to Get Your Medications These medications were sent to [facility] [place] [address] Hours: 30/11 insulin LISPRO 100 UNIT/ML Kwikpen Information about where to get these medications is not yet available Ask your nurse or doctor about these medications acetaminophen 325 mg tablet amLODIPine 10 mg tablet bisacodyl 10 mg suppository chlorhexidine 0.12% solution cyclobenzaprine 10 mg docusate sodium 100 mg capsule escitalopram 20 mg tablet hydrOXYzine pamoate 25 mg capsule insulin GLARGINE 100 units/mL injection vial Invega Sustenna 156 MG/ML injection loratadine 10 mg tablet milk of magnesia 400 mg/5 mL suspension nicotine 14 mg/ 24hr Patch 24 hr nicotine polacrilex 2 mg gum ondansetron 4 mg Tabs oxyCODONE 5 mg tablet polyethylene glycol 3350 17 g Packet prazosin 1 mg Capsule rosuvastatin 10 mg tablet sennosides 17.2 mg Tabs traZODone 50 mg tablet Discussed diagnosis and treatment plan with the patient. Patient verbalized understanding of condition and treatment plan. 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 APRN, TAX MANAGER PUBLIC 11/25/2023 07:37 [facility] Department of Surgery Pager: via telemediq I have spent 45 minutes with this patient today in which greater than 50% of this time was spent incounseling/coordination of care regarding in patient care, review of imaging/labs, chart review andconsultant recommendations. Dictation Disclaimer: Some notes are completed with voice-recognition dictation software. Errors are generally corrected in real time. Please contact me via [employer] staff message if you note any errors requiring clarification. Associated attestation - Zac Churchill MD - 12/01/2023 8:55 AM CDT Faculty note: This was a shared visit on the date of the Advanced practice providers note, with the advanced practice provider. Please see below for my documentation of the shared visit. Wounds/bruising looks stable - cont daily cares to open areas, follow up for evaluation of wound closure progress and to monitor healing. PT/OT following and appreciate the input and recommendations Follow up with consulting teams Zac Churchill MD, 12/01/2023 8:55 AM documented in this encounter Discharge Instructions * Discharge Instr - Resources* Jay Baker RN - 11/25/2023 12:02 PM CDT {AVS - Resources for patient (select all that apply):[id number]} documented in this encounter Medications at Time of Discharge Medication Sig Dispensed Refills Start Date End Date chlorhexidine (PERIDEX) 0.12% mouth/throat solutionIndications:G ingivitis Swish [...] bedtime. Indications: High Blood Pressure Disorder 11/24/2023 oxyCODONE (ROXICODONE) 5 mg oral tabletIndications:Acu te Pain Take 1-2 tablets (5-10 mg) by mouth every 6 hours as needed for Pain. Indications: Acute Pain 11/24/2023 12/01/2023 insulin GLARGINE (LANTUS) 100 units/mL subcutaneous injection vialIndications:Type 2 Diabetes Mellitus Inject 30 UNITS subcutaneously every twenty-four hours. Indications: Type 2 Diabetes 11/25/2023 12/12/2023 insulin LISPRO (HUMALOG KWIKPEN) 100 UNIT/ML subcutaneous Kwikpen Inject 6 UNITS subcutaneously 3 times daily before meals. 15 mL 5 11/24/2023 12/13/2023 documented as of this encounter Progress Notes * Pepe Hernandez RN - 11/25/2023 12:02 PM CDT Contacted after hours by provider: Pt was discharged to facility today but facility did not receive the discharge summary paperwork with medication orders. Secretary Bookkeeper opened admission encounter and re-faxed discharge paperwork to the provided fax # of [phone]. Tried a second fax # after this wasn't received, which also wasn't received. Third attempt made viaencrypter email. Confirmed received paperwork via encrypted email. Pepe Hernandez RN, 11/25/2023 9:33 PM ED Clinical Coordinator Office: [phone] [employer]: ED Clinical Coordinator * Kate Harmon RN - 11/25/2023 10:51 AM CDT DISCHARGE NOTE D: Patient is being discharged. A: (As documented in the Discharge Planning Flowsheet) Discharge Instructions (AVS): AVS given Discharge clothing/valuables: has adequate clothing Discharge medications: patient will fill own prescriptions elsewhere Home equipment status: equipment issued Home equipment/supplies recommended: Wound Care Supplies Final discharge destination: SNF R: The patient understood the AVS. Gangrene and amputation site dressings changed. Report given over the phone to RN. Patient sent down to taxi with AVS, discharge PPW and dressing change supplies. P: Support patient if they call back with questions. Kate Harmon RN, 11/25/2023 11:20 AM * Aretha Damon MD - 11/25/2023 8:39 AM CDT Brief ID follow-up: 11/17/23 Surgical margins from toe amputation were clear- no indication for further antibiotics, despite MRSA and Staph lugdunensis isolated from distal gangrenous toe. Antibitoics have been discontinued since 11/17, pt remains afebrile with stable wbc, mildly elevated likely related to Demar's and ongoing healing rather than concern for ongoing infection. If in the future pt's foot looks worrisome in follow-up or there's concern for ongoing infection, despite clear margins on 11/17/23 path and reassuring clinical measures, podiatry could use 2 double-strength TMP/SMX BID x 7 days, to cover isolated organisms. However, would advise against that approach for now as there's no clear indication to do so. 11/17/23 pathology: Final Diagnosis: Toe, left hallux, amputation - Toe amputation with marked skin and soft tissue gangrenous ulcerative necrosis, underlying bone with focal acute osteomyelitis. Surgical bone margin negative for acute osteomyelitis. Surgical margins viable. See gross description. Aretha Damon MD, 11/25/2023 8:45 AM * Farida Rosenthal DPM - 11/25/2023 4:42 AM CDT Images from the original note were not included. Podiatric Surgery Inpatient Progress Note - PGY-3 Matt Low : 1980 Sex: male Patient Summary: Matt Low is a 43 y.o. male with PMH of T2DM, prior TMA or right foot, HTN, paranoid schizophrenia, situs inversus, tobacco use, obesity, admitted on 11/10/2023 as a transfer from OSH for emergent surgical debridement for demar's gangren ASSESSMENT: Stable Incision dehiscence due to noncompliance, left --Went for a walk without protective shoe gear immediately after surgery --No acute signs of infection and wound is granulating in s/p Left hallux amputation (DOS 11/17/2023 Dr. Palomo) --Indication: gangrenous hallux, possible stable gas forming infection, right --Present on admission --Gas identified on outside CT 11/09 Daily Tobacco Use Possible small vessel disease --Present on admission --Distal tip of hallux gangrenous --AUS completed 11/16 with no additional workup indicated Controlled T2DM with peripheral neuropathy --A1C: 6.8% 07/2023 Right TMA --Present on admission, done at OSH --No wounds Paranoid Schizophrenia History of TBI --Patient is own MDM. Confirmed with patient and primary team RECOMMENDATIONS: 1. Dressing: Dressed bedside with Betadine, 4 x 4 gauze, Kerlix, gabriella, stocking. Ordered RN dressingchanges to be done daily. Our team will check weekly while admitted. Upon discharge he will need tocontinue with daily dressing changes. 2. Activity: Heel touch WB in surgical shoe. Surgical shoe present in room. Patient was walking on unit immediately after surgery without shoe AMA. 3. Antibiotics: ID consulted per primary team. Recommend 7 days soft tissue coverage from date of source control (11/16). Spoke with ID who spoke with operating pod attending date after surgery and advised no concern for bone infection, so antibiotics were discontinued 11/17 as patient has remained af ebrile without concern for ongoing infection. Progress Notes by Aretha Damon MD (11/25/2023 08:39) Clean and dirty soft tissue cultures taken in surgery 11/16. Patient not discharged on antibiotics. 4. Vascular: No additional workup indicated at this time. Appropriate bleeding in OR and bedside. AUS completed 11/16 with no evidence of inflow disease. 5. Imaging: No additional imaging needed at this time. Immediate postop x-rays ordered in PACU. 6. Surgery: No additional surgery planned from a podiatric standpoint during this stay 7. Follow-up: Patient is okay to discharge from our standpoint. He is scheduled to see us 41:00 PM (Arrive by 12:50 PM) with Dr Palomo ([facility]-5th floor) since he is discharging to [place].Follows with [place] when closer to home otherwise. Please page director of recruitment and admissions resident with questions. Interval History Patient was seen and evaluated at bedside. Doing well and tolerates dressings. Denies NCVF. No new questions this morning. REVIEW OF SYSTEMS: ALL other ROS negative except for those noted in HPI. PHYSICAL EXAMINATIONS: Temp (24hrs), Av.4 ??C (97.6 ??F), Min:36.1 ??C (97 ??F), Max:36.8 ??C (98.3 ??F) General: No apparent distress, alert and oriented Vascular: Pulses: PT/DP pulses nonpalpable, bilateral Hair growth absent at the level of the digits Capillary filling time less than three seconds on left digits 2-5 Lower extremity/foot edema absent Neurological: Protective sensation deficit noted - bilaterally to light touch Strength and tone bilaterally lower extremity muscles rated at 5/5 in all quadrants in lower leg and foot Dermatologic: Skin well approximated with sutures intact proximally Central incision gapping No signs of acute infection present. Erythema and edema present consistent with post op course. No evidence of CRPS. Musculoskeletal: Right TMA No tenderness to palpation left foot Left hallux amputation REVIEW OF LABORATORY, PATHOLOGY, AND RADIOLOGY DATA: Lab results: Lab Results Component Value Date WBC 13.36 (H) 11/23/2023 RBC 3.57 (L) 11/23/2023 HGB 10.0 (L) 11/23/2023 HCT 31.5 (L) 11/23/2023 PLT 492 (H) 11/23/2023 Lab Results Component Value Date NA 137 11/23/2023 K 5.1 11/23/2023 CHLORIDE 103 11/23/2023 CO2 24 11/23/2023 GLU 192 (H) 11/23/2023 UN 20 11/23/2023 CR 1.96 (H) 11/23/2023 CA 8.5 (L) 11/23/2023 Lab Results Component Value Date/Time APTT 32.9 11/10/2023 1431 No results found for: HGBA1C Primary care physician: No primary care provider on file. Samina Singletary DPM, 11/25/2023 4:42 AM Podiatric Surgery Resident FACULTY WITH RESIDENT: I discussed with the resident on the date of the resident's note and agree with the resident's findings and plan documented in the resident's note . Any revisions by me are documented. Farida Rosenthal DPM, 11/25/2023 10:18 AM * DorseyCaridad Y - 11/24/2023 2:37 PM CDT Preadmission Screening Submitter InformationPerson Being ReferredMedical InformationADL'Plainview HospitalSubmitResults Results Thank you for submitting a referral to the Senior [facility] Line. The [facility] will follow-up within one business day of receiving the referral. Click Print this page below to print or save a copy for your records. Please note, the final results will be determined by the [facility] or lead agency and provided to the nursing facility. If you have questions about this referral or need help, contact the [facility] Line at [phone] or click to contact us. Print this page You have successfully submitted the preadmission screening (PAS) to the [facility] on: Created On 11/24/2023 2:25 PM Your confirmation number is: [id number] Results Level of Care: Based on the information you provided, it appears this person meets level of care for purposes of [place] payment. OBRA: It appears this person does not need an OBRA Level II assessment. Submitter Information Form Type PAS Submitter First and Last Name Caridad Dorsey Direct Agency [facility] Satellite Service Type Hospital [address] [facility] Zip Code [address] Is your Agency outside ID? Person Being Admitted to Nursing Facility Legal first name Mtat Last name Stephanie Date of 1980 Age 43 Gender Male Marital Status N= Never Race A = B = Black or N = or [place] P = [place] or W = White U = Unable to Determine Ethnicity Not / Currently living with: 01 Living Alone Planned living with 04 Living in Congregate Setting Housing Type Home or apartment, including assisted living () Mailing Address [address] [place] [address] [place] [address] [facility] Medical Information Reason for nursing facility admission: Therapy services Physician signing nursing facility admission order Dr. churchill Primary diagnosis: Demar's gangrene. Is the primary diagnosis neuromuscular? No Does the person have a current diagnosis of a developmental disability or related condition(s)? No Has this person ever been considered to have a developmental disability or related condition? No Are there cognitive or behavioral signs that would lead someone to suspect the presence of developmental disabilities or related condition? No Does the person have a current diagnosis of a mental illness? No Has the person had any of the following? A mental illness as the primary diagnosis for hospitalization or nursing facility placement within the past two years Suicidal ideation, hallucinations, or delusions within the past six months A civil commitment for mental illness in his/her lifetime No Does the person have a diagnosis or symptoms of mental illness that has significantly interfered with functioning in life activities or caused the person significant distress within the past six months? No Has the person needed supportive services or interventions due to mental illness to maintain functioning within the past two years? No Does the person have a Brain Injury (BI) diagnosis? No ADL's Dressing 02 Needs some help from another person to put clothes on Grooming 00 Can comb hair, wash face, shave or brush teeth without help of any kind Bathing 03 Needs and gets help getting in and out of the tub Eating 00 Can eat without help of any kind Bed Mobility 01 Needs and gets help sometimes to sit up Transferring 01 Needs somebody to be there to help guide him/her, but can move in and out of a bed or chair Walking 01 Can walk with help of a cane, walker, crutch or push wheelchair Behavior 00 Behavior requires no intervention Toileting 01 need some help to get to and on the toilet, or needs intermittent supervision Toileting supervision Toileting supervisionNoToileting supervisionYes Special treatments 02 Other treatments Clinical monitoring 02 At least one every 8 hours Orientation 00 Oriented Self-preservation 00 Independent Hearing 00 No hearing impairment Visual 00 Has no impairment of vision Falls 01 Yes Admitting Nursing Facility Do you know which nursing facility the person will admit to? Do you know which nursing facility the person will admit to?NoDo you know which nursing facility the person will admit to?Yes Provider [facility] Nursing Facility Nursing Facility Service Type Correction [address] Zip Code [address] [place] [address] If your provider is not listed check the box Anticipated Admit Date 11/24/2023 Anticipated length of stay 30-60 days Submit I, as the submitter of this form, confirm that I have provided the most accurate information . We informed the person and/or their guardian about the Senior LinkAge Line and preadmission screenin The person gave consent for [facility]Age [facility] (or [facility] [place] if under age 60) follow-up. Did not ask * 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 APRN, PATRICIA - 11/24/2023 1:43 PM CDT SURGERY PROGRESS NOTE--DELPHINE Low : 1980 Sex: male SIGNIFICANT EVENTS IN THE PAST 24 HRS: No acute events overnight. Hemodynamically stable, afebrile. SUBJECTIVE: A complete 10-point ROS was done and all systems negative except for what is documented in the HPI. OBJECTIVE: BP (!) 158/79 (Cuff Location: Right Arm) Pulse 79 Temp 36.1 ??C (97 ??F) (Tympanic) Resp 17 Ht 1.803 m (5' 10.98) Wt (!) 142.9 kg (315 lb 1.6 oz) SpO2 96% BMI 43.97 kg/m?? Body mass index is 43.97 kg/m??. Intake/Output Summary (Last 24 hours) at 11/24/2023 1343 Last data filed at 11/23/2023 1507 Gross per 24 hour Intake -- Output 1 ml Net -1 ml Physical Examination: General: Up in chair having lunch, not in acute distress. HEENT: Normocephalic, no ocular or otic drainage, no rhinorrhea CV: Rate as noted, regular rhythm, no murmur or rubs., S1/S2 present on auscultation. No PeripheralEdema. Pulm: Lung sounds present bilaterally, no wheezes or rales on auscultation. Unlabored Respirations.On Room Air. Abd: Abdomen soft, non-tender, non-distended. BS x 4 - active; has a perineal wound. No signs of infection. Msk: Full range of motion present in all four extremities. Left hallux amputation-dressing is cleandry and intact Skin: Warm, dry, intact. Neuro: Alert, oriented x 3. No gross focal deficits Labs / Imaging: BMP Lab Results Component Value Date/Time NA 137 11/23/2023 0831 K 5.1 11/23/2023 0831 CHLORIDE 103 11/23/2023 0831 CO2 24 11/23/2023 0831 GLU 192 (H) 11/23/2023 0831 UN 20 11/23/2023 0831 CR 1.96 (H) 11/23/2023 0831 CA 8.5 (L) 11/23/2023 0831 CBC Lab Results Component Value Date/Time WBC 13.36 (H) 11/23/2023 0831 RBC 3.57 (L) 11/23/2023 0831 HGB 10.0 (L) 11/23/2023 0831 HCT 31.5 (L) 11/23/2023 0831 PLT 492 (H) 11/23/2023 0831 ASSESSMENT: Matt Low is a 43 y.o. male with PMH of T2DM, prior TMA or right foot, HTN, paranoid schizophrenia, situs inversus, tobacco use, obesity, admitted on 11/10/2023 as a transfer from OSH for emergent surgical debridement for demar's gangrene. Was taken to the OR for perineal debridement on 11/10/2023 and 11/12/2023. No further debridement is necessary. Current treatment is wet-to-dry dressings withVashe to the perineum. Patient also had some necrotic tissue on the first metatarsal on the left foot. Podiatry took the patient to the OR and amputated the left hallux. His hospitalization has been complicated with HTN, uncontrolled DMII and JANEL but the medicine team has helped manage his chronic conditions. Per the medicine team and podiatry have signed off with discharge recommendations. Medically the patient is ready for discharge. Planning on discharge today to [facility] pending insurance approval. PLAN: Neuro/Pain Control: Multimodal Acetaminophen 975 mg 3 times daily. Flexeril 10 mg 3 times daily Oxycodone 5 to 10 mg p.o. every 4 hours as needed. Nicotine replacement therapy Trazodone 50 mg nightly Lexapro 20 mg nightly CV: Monitor blood pressure and pulse and intervene as needed Amlodipine 10 mg daily Minipress 1 mg daily Atorvastatin 10 mg nightly Pulm: Encourage incentive spirometer Pulse oximetry per unit protocol Turn cough & deep breathe May utilize oxygen supplemental oxygen as needed to keep saturation greater than 90%. FEN/GI: Diet: Carb controlled Bowel Regimen: Senna, Miralax, Biscodyl supp ID: Completed a series of antibiotic Trend WBCs and fever Skin/Wounds: Perineal debridement [id number]-dry dressings with Vashe; Left hallux amputation -Betadine with 4 x 4 DVT prophylaxis: Lovenox and SCDs Weight Bearing: Heel touch WB in surgical shoe. On the LLW Activity: Ad celia PT/OT: Appreciate Recs Disposition: [facility] on 11/24/23 pending insurance authorization 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 APRN, PATRICIA, 11/24/2023 1:43 PM [facility] Department of Surgery Pager: via [employer] I have spent 30 minutes with this patient today in which greater than 50% of this time was spent incounseling/coordination of care regarding in patient care, review of imaging/labs, chart review andconsultant recommendations. Dictation Disclaimer: Some notes are completed with voice-recognition dictation software. Errors are generally corrected in real time. Please contact me via [employer] staff message if you note any errors requiring clarification. Discharge Milestones: Diet Tolerated?: Yes Mobility Level Appropriate for Discharge?: Yes - CARLA planned discharge Pain Controlled?: Yes - On oral discharge regimen Associated attestation - Zac Churchill MD - 11/27/2023 7:36 AM CDT Faculty note: This was a shared visit on the date of the Advanced practice providers note, with the advanced practice provider. Please see below for my documentation of the shared visit. Wounds/bruising looks stable - cont daily cares to open areas, follow up for evaluation of wound closure progress and to monitor healing. PT/OT following and appreciate the input and recommendations Follow up with consulting teams Zac Churchill MD, 11/27/2023 7:36 AM * Caridad Dorsey - 11/24/2023 11:13 AM CDT Transportation set for patient as follows: Date and time () of patient departure: 11/25/2023@1030 Destination: [address] [place] [address] Type of ride: [employer] #conformation [id number] Transportation vendor of ride (choose one below):* [facility] [phone] If this ride needs to be rescheduled or cancelled, inpatient staff should call this vendor directlyto reschedule or cancel, and document this in the chart. If the ride is cancelled, please also cancel the order in the chart. Nurses will receive a phone call if the ride is arriving in 120 minutes or less. Social Workers and Clinical Coordinators will be informed via a [employer] page. PCS form was completed in Progress Notes and is ready to be signed and routed to vendor by requestor(for stretcher rides only). Caridad Dorsey, 11/24/2023 11:13 AM Patient name: Stephanie Low Date of : 1980 Patient Admitting diagnosis: Patient Active Problem List Diagnosis 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[facility]) Hyperglycemia At risk for sexually transmitted infection due to unprotected sex Attending provider: Zac Churchill MD Insurance: [facility] Secondary insurance: [place] [employer] Height: Height: 180.3 cm (5' 10.98) Weight: Weight: (!) 142.9 kg (315 lb 1.6 oz) * Chayo Townsend, OTR/L - 11/24/2023 10:10 AM CDT Occupational Therapy Progress Note 11/24/2023 OT Discharge Recommendations Discharge Recommendations: Post-acute placement recommended Level/type of placement (OT): Sub-Acute Rehab facility Barriers to discharge to home/community: Caregiver availability not yet confirmed;Insufficient activity tolerance;Poor insight / safety judgement Supervision / Assistance Recommended for home DC: Yes Physical assistance recommended for (OT): Lower body dressing;Toileting;Bathing;IADL's Post Discharge Follow-up: OT at post-acute placement Equipment Recommended: Equipment needs to be determined at next level of care OT In-patient follow-up / recommended referrals: Continue skilled OT services to achieve the goals on the plan of care / maximize safety and independence with ADL's / IADL's: - Recommended Frequency: 3x / week - Anticipated Duration of OT services: throughout hospital stay PM&R Consult Recommended: Precautions/Restrictions: Activity Level: Up Ad Celia (11/13/23 1100) General Precautions: Falls Risk (11/13/23 1100) SUBJECTIVE: I'm tired. Pain Pain Rating With Activity (Numeric): no overt signs of pain OBJECTIVE: Activities of Daily Living Grooming: Supervision/Stand by assist Grooming Comments: standing at sink for oral cares Bathing: Supervision/Stand by assist Bathing Comments: to complete UB bed bath seated in recliner Upper Body Dressing: Minimal assist (75% patient effort) Upper Body Dressing Comments: gown management Functional Mobility Supine to/from Sit: Modified independence Sit to/from Stand : Verbal cues;Supervision/Stand by assist (completes multiple repetitions with cues for heel touch weight bearing) Sit to/from Stand - Method: From standard seat height;w/o Assistive device Toilet Transfer: Supervision/Stand by assist Toilet Transfer- Method: Grab bar Bed to Bathroom: Supervision/Stand by assist;Verbal cues Bed to Bathroom- Method: None Cognition Mental Status: Alert;Cooperative;Follows 1 step direction;Oriented x 3 Delirium assessment: Confusion Assessment Method (CAM) Disorganized Thinking: No Altered level of consciousness: No Delirium prevention / intervention appears indicated? No. Therapeutic Exercise/Activity Patient / Caregiver Training: Interdisciplinary Communication: RN: ok to see ASSESSMENT: Pt continues to benefit from verbal cues to adhere to heel touch weight bearing with functional mobility. Endorses fatigue but good participation throughout session. Will benefit from ongoing OT services to further address activity tolerance and safety with ADLs at post acute placement. This patient will continue to benefit from skilled OT services for ADL retraining, activity tolerance, and functional mobility to maximize independence and safety with ADLs. PLAN: Continue skilled OT services to achieve the goals on the plan of care: Total treatment time: 18 minutes OT interventions and time spent on each: Self care/Home mgmt/ADL: 18 minutes EDWIN Alvarado/Brian Pager: [facility] OT Department Problem: Loss of [place] With ADLs, Risk for Goal: Will complete lower body dressing Description: Patient will complete lower body dressing with Modified [place] (6). Outcome: In progress Goal: Will toilet self Description: Patient will toilet self with Modified [place] (6). Outcome: In progress * Lior Azul - 11/24/2023 8:04 AM CDTSummary: Post Acute Referrals Images from the original note were not included. Post Acute Referrals Referrals to post acute placement have been sent. Updates about referral status can be seen below .This note will continue to be updated by the case management team. Addendum history can be seen below. Continued Care and Services - Admitted Since 11/10/2023 Destination Coordination complete. Service Provider Request Status Selected Services Address Phone Fax Patient Preferred [facility] Selected Alf [address] [place] [phone] -- Internal Comment last updated by Lior Azul 11/24/2023 0805 Pending prior auth. Lior Azul, 11/24/2023 8:05 AM Received VM saying they would accept . LVM saying we would accept bed.. Caridad Dorsey, 11/24/2023 7:50 AM Admissions is currently reviewing .Caridad Dorsey, 11/23/2023 9:31 AM No bd available until next week. Caridad Dorsey, 11/18/2023 8:34 AM [facility], [facility] ([facility]) Accepted N/A [address] [facility] [address] [phone] -- Internal Comment last updated by Lior Azul 11/24/2023 0840 They can offer us a bed here but we already found one in [place]. Lior Azul, 11/24/2023 8:40 AM [facility] Pending - Request Sent N/A [address] [facility] [address] [phone] -- Internal Comment last updated by Caridad Dorsey 11/23/2023 0937 LVM for admissions .Caridad Dorsey, 11/23/2023 9:37 AM [facility] Declined Current smoking, Bariatric N/A [address] [facility] [address] [phone] -- [facility], [facility] Declined Distance N/A [address] [address] [phone] -- Internal Comment last updated by Lior Azul 11/22/2023 1215 This is too far from where patient lives. Lior Azul, 11/22/2023 12:18 PM Sent e mail to Allie .Caridad Dorsey, 11/22/2023 8:10 AM LVM for admissions .Caridad Dorsey, 11/19/2023 7:44 AM Sent email to Missy.Caridad Dorsey, 11/17/2023 2:24 PM [facility] Declined No Contract with Patient's Insurance Carrier N/A [address] [place] [address] [phone] -- [facility] Declined Current smoking, Acuity too high N/A [address] [place] [address] [phone] -- Internal Comment last updated by Caridad Dorsey 11/18/2023 0831 LVM for admissions.Caridad Dorsey, 11/18/2023 8:31 AM [facility], [facility] Declined Bed not available N/A [address] [facility] [address] [phone] -- Internal Comment last updated by Lior Azul 11/23/2023 1415 Looking for a bed in the [facility] .Caridad Dorsey, 11/23/2023 9:35 AM LVM for admissions.Cariadd Dorsey, 11/19/2023 8:17 AM LVM for admissions.Caridad Dorsey, 11/18/2023 8:37 AM [facility] Declined Bed not available N/A [address] [facility] [address] [phone] -- [facility], [facility] Declined Bed not available N/A [address] [facility] [phone] -- [facility], [facility] Declined Bed not available N/A [address] [facility] [address] [phone] -- Home Medical Care No active coordination exists for this encounter. * 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, WELDING ROD COATER, TAX MANAGER PUBLIC - 11/23/2023 3:06 PM CDT SURGERY PROGRESS NOTE--BRICKLAYER SUPERVISOR Stephanie Low : 1980 Sex: male SIGNIFICANT EVENTS IN THE PAST 24 HRS: No acute events overnight. Hemodynamically stable, afebrile. SUBJECTIVE: A complete 10-point ROS was done and all systems negative except for what is documented in the HPI. OBJECTIVE: BP (!) 162/82 (Cuff Location: Right Arm) Pulse 77 Temp 36.9 ??C (98.5 ??F) (Axillary) Resp 18 Ht 1.803 m (5' 10.98) Wt (!) 142.9 kg (315 lb 1.6 oz) SpO2 95% BMI 43.97 kg/m?? Body mass index is 43.97 kg/m??. Intake/Output Summary (Last 24 hours) at 11/23/2023 1506 Last data filed at 11/23/2023 0900 Gross per 24 hour Intake 300 ml Output 3 ml Net 297 ml Physical Examination: General: Up in chair having lunch, not in acute distress. HEENT: Normocephalic, no ocular or otic drainage, no rhinorrhea CV: Rate as noted, regular rhythm, no murmur or rubs., S1/S2 present on auscultation. No PeripheralEdema. Pulm: Lung sounds present bilaterally, no wheezes or rales on auscultation. Unlabored Respirations.On Room Air. Abd: Abdomen soft, non-tender, non-distended. BS x 4 - active; has a perineal wound. No signs of infection. Msk: Full range of motion present in all four extremities. Left hallux amputation-dressing is cleandry and intact Skin: Warm, dry, intact. Neuro: Alert, oriented x 3. No gross focal deficits Labs / Imaging: BMP Lab Results Component Value Date/Time NA 137 11/23/2023 0831 K 5.1 11/23/2023 0831 CHLORIDE 103 11/23/2023 0831 CO2 24 11/23/2023 0831 GLU 192 (H) 11/23/2023 0831 UN 20 11/23/2023 0831 CR 1.96 (H) 11/23/2023 0831 CA 8.5 (L) 11/23/2023 0831 CBC Lab Results Component Value Date/Time WBC 13.36 (H) 11/23/2023 0831 RBC 3.57 (L) 11/23/2023 0831 HGB 10.0 (L) 11/23/2023 0831 HCT 31.5 (L) 11/23/2023 0831 PLT 492 (H) 11/23/2023 0831 ASSESSMENT: Matt Low is a 43 y.o. male with PMH of T2DM, prior TMA or right foot, HTN, paranoid schizophrenia, situs inversus, tobacco use, obesity, admitted on 11/10/2023 as a transfer from OSH for emergent surgical debridement for demar's gangrene. Was taken to the OR for perineal debridement on 11/10/2023 and 11/12/2023. No further debridement is necessary. Current treatment is wet-to-dry dressings withVashe to the perineum. Patient also had some necrotic tissue on the first metatarsal on the left foot. Podiatry took the patient to the OR and amputated the left hallux. His hospitalization has been complicated with HTN, uncontrolled DMII and JANEL but the medicine team has helped manage his chronic conditions. Per the medicine team and podiatry have signed off with discharge recommendations. Medically the patient is ready for discharge. Social work and care management try to find placement for him. PLAN: Neuro/Pain Control: Multimodal Acetaminophen 975 mg 3 times daily. Flexeril 10 mg 3 times daily Oxycodone 5 to 10 mg p.o. every 4 hours as needed. Nicotine replacement therapy Trazodone 50 mg nightly Lexapro 20 mg nightly CV: Monitor blood pressure and pulse and intervene as needed Amlodipine 10 mg daily Minipress 1 mg daily Atorvastatin 10 mg nightly Pulm: Encourage incentive spirometer Pulse oximetry per unit protocol Turn cough & deep breathe May utilize oxygen supplemental oxygen as needed to keep saturation greater than 90%. FEN/GI: Diet: Carb controlled Bowel Regimen: Senna, Miralax, Biscodyl supp ID: Completed a series of antibiotic Trend WBCs and fever Skin/Wounds: Perineal debridement hgxe-loy-je-dry dressings with Vashe; Left hallux amputation -Betadine with 4 x 4 DVT prophylaxis: Lovenox and SCDs Weight Bearing: Heel touch WB in surgical shoe. On the LLW Activity: Ad celia PT/OT: Appreciate Recs Disposition: Postacute placement recommended-care management and social work looking for a TCU. 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 APRN, CNP, 11/23/2023 3:06 PM [facility] Department of Surgery Pager: via telemediq I have spent 30 minutes with this patient today in which greater than 50% of this time was spent incounseling/coordination of care regarding in patient care, review of imaging/labs, chart review andconsultant recommendations. Dictation Disclaimer: Some notes are completed with voice-recognition dictation software. Errors are generally corrected in real time. Please contact me via [employer] staff message if you note any errors requiring clarification. Surgery Discharge Milestones (Inpatient Primary Team only): Associated attestation - Zac Churchill MD - 11/24/2023 9:39 AM CDT Faculty note: This was a shared visit on the date of the Advanced practice providers note, with the advanced practice provider. Please see below for my documentation of the shared visit. Wounds/bruising looks stable - cont daily cares to open areas, follow up for evaluation of wound closure progress and to monitor healing. PT/OT following and appreciate the input and recommendations Follow up with consulting teams Zac Churchill MD, 11/24/2023 9:39 AM * Lior Azul - 11/23/2023 2:16 PM CDTSummary: Post Acute Referrals Post Acute Referrals Referrals to post acute placement have been sent. Updates about referral status can be seen below .This note will continue to be updated by the case management team. Addendum history can be seen below. Continued Care and Services - Admitted Since 11/10/2023 Destination Service Provider Request Status Selected Services Address Phone Fax Patient Preferred [facility] Pending - Request Sent N/A [id number] [facility] [phone] -- Internal Comment last updated by Caridad Dorsey 11/23/2023 0931 Admissions is currently reviewing .Caridad Dorsey, 11/23/2023 9:31 AM No bd available until next week. Caridad Dorsey, 11/18/2023 8:34 AM [facility], [facility] [place] [facility] Pending - Request Sent N/A [address] [facility] [address] [phone] -- Internal Comment last updated by Lior Azul 11/23/2023 1415 Looking for a bed in the [facility] .Caridad Dorsey, 11/23/2023 9:35 AM LVM for admissions.Caridad Dorsey, 11/19/2023 8:17 AM LVM for admissions.Caridad Dorsey, 11/18/2023 8:37 AM [facility] Pending - Request Sent N/A [address] [facility] [address] [phone] -- Internal Comment last updated by Caridad Dorsey 11/23/2023 0937 LVM for admissions .Caridad Dorsey, 11/23/2023 9:37 AM [facility] Declined Current smoking, Bariatric N/A [address] [facility] [address] -- The [facility], [facility] [place] [facility] Declined Distance N/A [address] [address] [phone] -- Internal Comment last updated by Lior Azul 11/22/2023 2831 This is too far from where patient lives. Lior Azul, 11/22/2023 12:18 PM Sent e mail to [facility] .Caridad Dorsey, 11/22/2023 8:10 AM LVM for admissions .Caridad Dorsey, 11/19/2023 7:44 AM Sent email to Missy.Caridad Dorsey, 11/17/2023 2:24 PM [facility] Declined No Contract with Patient's Insurance Carrier N/A [address] [place] [address] [phone] -- [facility] Declined Current smoking, Acuity too high N/A [address] [place] [address] [phone] -- Internal Comment last updated by Caridad Dorsey 11/18/2023 0831 LVM for admissions.Caridad Dorsey, 11/18/2023 8:31 AM [facility] Declined Bed not available N/A [address] [facility] [address] [phone] -- The [facility] Declined Bed not available N/A [address] [facility] [phone] -- The [facility] Declined Bed not available N/A [address] [facility] [address] [phone] -- Home Medical Care No active coordination exists for this encounter. * Caridad Dorsey - 11/23/2023 9:42 AM CDT Continued Care and Services - Admitted Since 11/10/2023 Destination Service Provider Request Status Selected Services Address Phone Fax Patient Preferred [facility] Pending - Request Sent N/A [address] [facility] [phone] -- Internal Comment last updated by Caridad Dorsey 11/23/2023 0931 Admissions is currently reviewing .Caridad Dorsey, 11/23/2023 9:31 AM No bd available until next week. Caridad Dorsey, 11/18/2023 8:34 AM [facility] Pending - Request Sent N/A [address] [facility] [address] -- Internal Comment last updated by Caridad Dorsey 11/23/2023 0935 [facility] bed [facility] the [facility] [place] [facility] .Caridad Dorsey, 11/23/2023 9:35 AM LVM for admissions.Caridad Dorsey, 11/19/2023 8:17 AM LVM for admissions.Caridad Dorsey, 11/18/2023 8:37 AM [facility], [facility] [place] [facility] Pending - Request Sent N/A [address] [facility] [phone] -- [facility] Pending - Request Sent N/A [address] [facility] [address] [phone] -- Internal Comment last updated by Caridad Dorsey 11/23/2023 0937 LVM for admissions .Caridad Dorsey, 11/23/2023 9:37 AM [facility] Declined Current smoking, Bariatric N/A [address] [facility] [address] [phone] -- [facility], [facility] [place] [facility] Declined Distance N/A [address] [address] [phone] -- Internal Comment last updated by Lior Azul 11/22/2023 1218 This is too far from where patient lives. Lior Azul, 11/22/2023 12:18 PM Sent e mail to Allie .Caridad Dorsey, 11/22/2023 8:10 AM LVM for admissions .Caridad Dorsey, 11/19/2023 7:44 AM Sent email to Missy.Caridad Dorsey, 11/17/2023 2:24 PM [facility] Declined No Contract with Patient's Insurance Carrier N/A [address] [place] [address] [phone] -- [facility] Declined Current smoking, Acuity too high N/A [address] [place] [address] [phone] -- Internal Comment last updated by Caridad Dorsey 11/18/2023 0831 LVM for admissions.Caridad Dorsey, 11/18/2023 8:31 AM [facility] Declined Bed not available N/A [address] [facility] [address] [phone] -- [facility], [facility] [place] [facility] Declined Bed not available N/A [address] [facility] [address] [phone] -- Home Medical Care No active coordination exists for this encounter. * Chayo Townsend OTR/Brian - 11/22/2023 2:56 PM CDT Occupational Therapy Progress Note 11/22/2023 OT Discharge Recommendations Discharge Recommendations: Post-acute placement recommended Level/type of placement (OT): Sub-Acute Rehab facility Barriers to discharge to home/community: Caregiver availability not yet confirmed;Insufficient activity tolerance;Poor insight / safety judgement Supervision / Assistance Recommended for home DC: Yes Physical assistance recommended for (OT): Lower body dressing;Toileting;Bathing;IADL's Post Discharge Follow-up: OT at post-acute placement Equipment Recommended: Equipment needs to be determined at next level of care OT In-patient follow-up / recommended referrals: Continue skilled OT services to achieve the goals on the plan of care / maximize safety and independence with ADL's / IADL's: - Recommended Frequency: 3x / week - Anticipated Duration of OT services: throughout hospital stay Precautions/Restrictions: Activity Level: Up Ad Celai (11/13/23 1100) General Precautions: Falls Risk (11/13/23 1100) SUBJECTIVE: I'm tired but we can try. Pain Pain Rating With Activity (Numeric): (does not rate) Location: groin OBJECTIVE: Activities of Daily Living Grooming: Supervision/Stand by assist Grooming Comments: standing at sink for oral cares Upper Body Dressing: Minimal assist (75% patient effort) Upper Body Dressing Comments: gown management Functional Mobility Supine to/from Sit: Modified independence Sit to/from Stand : Modified independence Sit to/from Stand - Method: From standard seat height;w/o Assistive device Bed to Bathroom: Verbal cues;Supervision/Stand by assist (VC for heel touch WB) Bed to Bathroom- Method: None Cognition Mental Status: Alert;Cooperative;Follows 1 step direction;Oriented x 3 Delirium assessment: Confusion Assessment Method (CAM) Delirium prevention / intervention appears indicated? No. Therapeutic Exercise/Activity Patient / Caregiver Training: Interdisciplinary Communication: ASSESSMENT: Pt alert and oriented for OT session, endorsing fatigue after PT session. Pt able to maintain heel toe WB for brief in room mobility with max cues. Completing brief grooming task before requesting to rest. This patient will continue to benefit from skilled OT services for ADL retraining, activity tolerance, and functional mobility to maximize independence and safety with ADLs. PLAN: Continue skilled OT services to achieve the goals on the plan of care: Plan For Next OT Session: --ADLs: Toileting strategies, Grooming strategies, and Energy conservation --Functional Mobility/Transfers: Toilet/commode transfer technique Total treatment time: 13 minutes OT interventions and time spent on each: Self care/Home mgmt/ADL: 13 minutes Chayo Townsend OTR/L Pager: [facility] OT Department Problem: Loss of [place] With ADLs, Risk for Goal: Will complete lower body dressing Description: Patient will complete lower body dressing with Modified [place] (6). Outcome: In progress Goal: Will toilet self Description: Patient will toilet self with Modified [place] (6). Outcome: In progress * Arden Elena PTA - 11/22/2023 2:05 PM CDT Physical Therapy Progress Note PT Discharge Recommendations Discharge Recommendations: Post-acute placement recommended. Level/type of placement (PT): Sub-Acute Rehab facility Barriers to placement (PT): No known barriers to placement Barriers to discharge to home/community: Insufficient activity tolerance;Caregiver support/supervision insufficient;High falls risk;Poor insight / safety judgement If discharging to home, would need: Supervision when mobilizing;Physical assistance when mobilizing;Assist with community access and mobility Post discharge follow-up: PT at post-acute placement Equipment Status: Equipment needs being determined;Equipment issued PT Equipment Recommended: Front wheeled walker PM&R Recommended: * (No) S: That was a workout, can I lay down? O: Mental Status Mental Status: Alert;Cooperative Follows Directions: Follows 1 step direction Restrictions/Precautions Weight Bearing Restrictions: Heel touch WB on L LE in post-op shoe. (not in activity orders) Complies w/ Weight Bearing?: No Vital Signs 11/22/2023 0735 11/22/2023 0820 11/22/2023 1124 BP: 140/65 140/65 -- Patient Position for BP: Lying Down -- Lying Down Pulse: 86 -- 80 SpO2: 93 % -- 97 % Transfer & Bed Mobility Supine to/from Sit: Modified independent Sit to/from Stand: Modified independent Gait Distance (m): 50 m Device: None;Front wheeled walker Assistance: Stand by assist Gait Quality (General): Slowed;Unsteady Gait Quality (Left side): (cues for HTWB) Fall Risk Assessment: None of the above Treatment rendered: Gait training;Transfer training;Bed mobility training Total treatment time: 23 minutes A: Matt is in bed when he agrees to PT. He demonstrates mod I supine <> sit and STS transfers.Patient has no activity orders regarding LLE WB status, and no indicators on his board. Notified RN. Patient ambulates using no AD and a FWW with SBA. Max Cueing for LLE HTWB, but pt FWB in his post op-shoe with all mobility. He would benefit from ongoing PT to increase independence with gait and reduce his falls risk. P: Patient will be seen 3-4/wk until goals are met or patient is discharged. Next visit the plan isto work on LLE WB status, gait with or without AD, static/dynamic balance. LEI MAKER Appropriate: Yes Arden Elena, LEI MAKER 11/22/2023 Pager: [facility] PT Dept Problem: Decreased Transfer Skills Goal: Patient will transfer sit to/from stand Description: Patient will transfer sit to/from stand while Heel touch WB on L LE in post-op shoe with (6) Modified [place] in order to mobilize in home by 12/09/23. Outcome: Met Problem: Decreased Ambulatory Skills Goal: Improve gait Description: Ambulate 100 meters using an appropriate AD while heel touch WB on L LE in post-op shoe w Mod I by 12/09/2023 in order to mobilize in home and community by 11/28/23. Outcome: In progress Problem: Decreased Functional Motor Skills - PT Goal: Patient demonstrates improved balance Description: Pt will be able to demonstrate 45/56 or greater on Medina Balance test and 24/28 on [place] in order to reduce risk of falls at home by 12/09/23. Outcome: In progress Problem: Decreased Transfer Skills Goal: Patient will transfer supine to/from sit Description: Patient will transfer supine to/from sit with Mod I by 12/02/2023 without using a bed rail for decreased caregiver burden. Outcome: Met * Lior Azul - 11/22/2023 12:09 PM CDTSummary: DC Planning DC Planning [facility] SABIEN Hartman - O: [phone] M[facility] RN is calling her asking her when he can return there. Please check in with Erin CC spoke with Minnie. It seems patient has been miscommunicated to. He thinks he is DCing back to SNF. CC will speak to patient in person today and explain that we are looking for a SNF and that his ALFwon't be able to provide for his wound dressings. Addendum: CC spoke with patient in room about DC plan. He agrees with sending referrals to SNFs around [place]. He wants CC to let sister know as well. CC called sister. No answer. LVM. Lior Azul, 11/22/2023 2:41 PM * Nico Hogue MD - 11/22/2023 9:13 AM CDT SURGERY PROGRESS NOTE--PGY1 Matt Low : 1980 Sex: male SIGNIFICANT EVENTS IN THE PAST 24 HRS: NAECHAZ SUBJECTIVE: Pt reports doing well. Is asking when he will be discharged. No bleeding from foot since. Perineal pain is well controlled. OBJECTIVE: BP 140/65 (Cuff Location: Right Arm) Pulse 86 Temp 36.1 ??C (96.9 ??F) (Tympanic) Resp 16 Ht 1.803 m (5' 10.98) Wt (!) 142.9 kg (315 lb 1.6 oz) SpO2 93% BMI 43.97 kg/m?? Body mass index is 43.97 kg/m??. Intake/Output Summary (Last 24 hours) at 11/22/2023 09 Last data filed at 11/21/2023 1600 Gross per 24 hour Intake 240 ml Output -- Net 240 ml Physical Examination: General: Patient laying in bed awake, not in acute distress. CV: Rate as noted, regular rhythm, Pulm: Unlabored Respirations. On Room Air. Abd: Abdomen soft, non-tender, non-distended. Labs / Imaging: BMP Lab Results Component Value Date/Time NA 138 11/21/2023 0452 K 4.8 11/21/2023 0452 CHLORIDE 103 11/21/2023 0452 CO2 27 11/21/2023 0452 GLU 128 (H) 11/21/2023 0452 UN 21 (H) 11/21/2023 045 CR 2.07 (H) 11/21/2023 0452 CA 8.4 (L) 11/21/2023 0452 CMP Lab Results Component Value Date/Time NA 138 11/21/2023 0452 K 4.8 11/21/2023 0452 CHLORIDE 103 11/21/2023 0452 CO2 27 11/21/2023 0452 GLU 128 (H) 11/21/2023 0452 UN 21 (H) 11/21/2023 0452 CR 2.07 (H) 11/21/2023 045 CA 8.4 (L) 11/21/2023 045 MG 2.4 11/14/2023 0530 ALBUMIN 2.9 (L) 11/10/2023 1431 TPRO 7.1 11/10/2023 1431 ALP 104 11/10/2023 1431 ALT 9 11/10/2023 1431 AST 14 11/10/2023 1431 TBILI 0.3 11/10/2023 1431 Lab Results Component Value Date/Time WBC 11.48 (H) 11/21/2023 0452 RBC 3.21 (L) 11/21/2023 0452 HGB 9.0 (L) 11/21/2023 0452 HCT 28.7 (L) 11/21/2023 0452 PLT 510 (H) 11/21/2023 045 MCV 89.4 11/21/2023 0452 MCH 28.0 11/21/2023 045 MCHC 31.4 11/21/2023 045 RDW 14.6 (H) 11/21/2023 045 MPV 9.1 11/21/2023 0452 NEUTNO 6.51 (H) 11/20/2023 0818 LYMPHAB 2.07 11/20/2023 0818 MONOABSNO 1.27 (H) 11/20/2023 0818 EOSNUMB 0.45 11/20/2023 0818 BASO 0.03 11/20/2023 0818 Susceptibility data from last 90 days. Collected Specimen Info Organism Cefepime Ceftazidime Clindamycin Susceptibility Daptomycin Erythromycin Levofloxacin Linezolid Meropenem Oxacillin Pipercillin/Tazobactam Tetracycline Tobramycin Trimethoprim/Sulfamethoxazole 11/17/23 Tissue from Toe Methicillin-Resistant Staphylococcus aureus (MRSA) R S R R S R S S Staphylococcus lugdunensis R R S S S S S 11/17/23 Tissue from Toe Actinomyces europaeus Veillonella parvula group 11/17/23 Tissue from Toe Methicillin-Resistant Staphylococcus aureus (MRSA) R S R R S R S S Pseudomonas aeruginosa S S S S S S Group b beta hemolytic streptococcus 11/10/23 Tissue from Perineal Staphylococcus epidermidis Actinomyces species Staphylococcus pettenkoferi 11/10/23 Swab from Perineal Staphylococcus epidermidis Actinomyces species Collected Specimen Info Organism Vancomycin 11/17/23 Tissue from Toe Methicillin-Resistant Staphylococcus aureus (MRSA) S Staphylococcus lugdunensis S 11/17/23 Tissue from Toe Actinomyces europaeus Veillonella parvula group 11/17/23 Tissue from Toe Methicillin-Resistant Staphylococcus aureus (MRSA) S Pseudomonas aeruginosa Group b beta hemolytic streptococcus 11/10/23 Tissue from Perineal Staphylococcus epidermidis Actinomyces species Staphylococcus pettenkoferi 11/10/23 Swab from Perineal Staphylococcus epidermidis Actinomyces species ASSESSMENT: 43 y.o. 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 S/p perineal debridement (11/09 and 11/10). Surgery team changed the dressing 11/13. 11/13 Cr raised to 3.21 from 3.04 and Bun increased from 37 to 40,concerned for JANEL. 11/14 Cr decreased 2.86 and BUN decreased to 38. HCV, HBV, HIV screeing was negative, proteinuria decreased. U/A was not active. Changed hydralazine to PO. Metronidazole changed fromIV to oral per ID consultation. Insulin lantus was increased from 25 to 28 per medicine. Podiatry amputated the first metatarsal of left toe. Nursing doing dressing changes. Episode of hypertension. Medicine following and recommends adding amlodipine and carvedilol. Okay from surgery perspective for discharge. 11/18 podiatry signed off, medicine signed off 11/20. 11/21 Perineal wound was assessed and dressing was change.Awaiting rehab facility that could provide wound cares. Plan: - Daily AM CBC and BMP for now - Dressing change daily and PRN by nursing Type 2 DM Diagnosed with Dmt2 in 2010. Home regimen: 30u glargine BID, lispro 14u TID AC metformin 500mg BID.Most recent a1c 6.8% on 07/27/23. Continue Glargine 30 units Q24H, Aspart TID AC and at bedtime While on PO: - consistent carb diet, medium - glucose checks QID TID AC and HS Discharge recommendations (please page medicine morning of DC to confirm no changes) - Continue home diabetes regimen: - 30u glargine BID - lispro 10u TID AC - metformin 500mg BID HTN -Continue with oral hydralazine BID 40mg, -prazosin 1mg at bedtime. -Continue Amlodipine 10mg Daily - Resume LEI MAKER losartan 50mg PO Daily when Cr is closer to baseline (1.0) Acute Kidney Injury Monitor urine output and BMP closely. 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 Would give dose here if due and if available on formulary. Tobacco use - offer nicotine patches, gum, lozenges while inpatient - cessation counseling provided Neuro/Pain Control: Multimodal -Scheduled: Tylenol, Gabapentin, cyclobenzaprine, Lexapro, Trazodone -PRN: Oxycodone Skin/Wounds: Daily dressing changes by nursing DVT prophylaxis: Ambulating Weight Bearing: WBAT Activity: Ad celia/with assist Disposition: Home Nico Hogue MD, 11/22/2023 9:13 AM PGY-1 General Surgery Associated attestation - Zac Churchill MD - 11/23/2023 8:18 AM CDT FACULTY NOTE I saw and evaluated the patient on the date of the literary writer's note. I discussed with the literary writer of the note and agree with their findings and plan documented in the literary writer's note from above. Any revisions by me are documented. Zac Churchill MD, 11/23/2023 8:18 AM * Nicola Vasquez MD - 11/21/2023 12:31 PM CDT SURGERY PROGRESS NOTE--PGY1 Matt Low : 1980 Sex: male SIGNIFICANT EVENTS IN THE PAST 24 HRS: NAEON SUBJECTIVE: Pt reports doing well. Is asking when he will be discharged. Has been compliant with wearing his boot. No bleeding from foot since. Perineal pain is well controlled. OBJECTIVE: BP 133/58 (Cuff Location: Left Arm) Pulse 78 Temp 36.8 ??C (98.3 ??F) (Oral) Resp 18 Ht 1.803 m (5' 10.98) Wt (!) 142.9 kg (315 lb 1.6 oz) SpO2 96% BMI 43.97 kg/m?? Body mass index is 43.97 kg/m??. Intake/Output Summary (Last 24 hours) at 11/21/2023 1231 Last data filed at 11/21/2023 0745 Gross per 24 hour Intake 1080 ml Output 5 ml Net 1075 ml Physical Examination: General: Patient laying in bed awake, not in acute distress. CV: Rate as noted, regular rhythm, Pulm: Unlabored Respirations. On Room Air. Abd: Abdomen soft, non-tender, non-distended. Labs / Imaging: BMP Lab Results Component Value Date/Time NA 138 11/21/2023 0452 K 4.8 11/21/2023 0452 CHLORIDE 103 11/21/2023 0452 CO2 27 11/21/2023 0452 GLU 128 (H) 11/21/2023 0452 UN 21 (H) 11/21/2023 0452 CR 2.07 (H) 11/21/2023 0452 CA 8.4 (L) 11/21/2023 0452 CMP Lab Results Component Value Date/Time NA 138 11/21/2023 0452 K 4.8 11/21/2023 0452 CHLORIDE 103 11/21/2023 0452 CO2 27 11/21/2023 0452 GLU 128 (H) 11/21/2023 0452 UN 21 (H) 11/21/2023 0452 CR 2.07 (H) 11/21/2023 0452 CA 8.4 (L) 11/21/2023 0452 MG 2.4 11/14/2023 0530 ALBUMIN 2.9 (L) 11/10/2023 1431 TPRO 7.1 11/10/2023 1431 ALP 104 11/10/2023 1431 ALT 9 11/10/2023 1431 AST 14 11/10/2023 1431 TBILI 0.3 11/10/2023 1431 Lab Results Component Value Date/Time WBC 11.48 (H) 11/21/2023 0452 RBC 3.21 (L) 11/21/2023 0452 HGB 9.0 (L) 11/21/2023 0452 HCT 28.7 (L) 11/21/2023451 PLT 510 (H) 11/21/2023451 MCV 89.4 11/21/2023451 MCH 28.0 11/21/2023451 MCHC 31.4 11/21/2023451 RDW 14.6 (H) 11/21/2023451 MPV 9.1 11/21/2023451 NEUTNO 6.51 (H) 11/20/2023817 LYMPHAB 2.07 11/20/2023 0818 MONOABSNO 1.27 (H) 11/20/2023 0818 EOSNUMB 0.45 11/20/2023817 BASO 0.03 11/20/2023817 Susceptibility data from last 90 days. Collected Specimen Info Organism Cefepime Ceftazidime Clindamycin Susceptibility Daptomycin Erythromycin Levofloxacin Linezolid Meropenem Oxacillin Pipercillin/Tazobactam Tetracycline Tobramycin Trimethoprim/Sulfamethoxazole 11/17/23 Tissue from Toe Methicillin-Resistant Staphylococcus aureus (MRSA) R S R R S R S S Staphylococcus lugdunensis R R S S S S S 11/17/23 Tissue from Toe Methicillin-Resistant Staphylococcus aureus (MRSA) R S R R S R S S Pseudomonas aeruginosa S S S S S S Group b beta hemolytic streptococcus 11/10/23 Tissue from Perineal Staphylococcus epidermidis Actinomyces species Staphylococcus pettenkoferi 11/10/23 Swab from Perineal Staphylococcus epidermidis Actinomyces species Collected Specimen Info Organism Vancomycin 11/17/23 Tissue from Toe Methicillin-Resistant Staphylococcus aureus (MRSA) S Staphylococcus lugdunensis S 11/17/23 Tissue from Toe Methicillin-Resistant Staphylococcus aureus (MRSA) S Pseudomonas aeruginosa Group b beta hemolytic streptococcus 11/10/23 Tissue from Perineal Staphylococcus epidermidis Actinomyces species Staphylococcus pettenkoferi 11/10/23 Swab from Perineal Staphylococcus epidermidis Actinomyces species ASSESSMENT: 43 y.o. 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 S/p perineal debridement (11/09 and 11/10). Surgery team changed the dressing 11/13. 11/13 Cr raised to 3.21 from 3.04 and Bun increased from 37 to 40,concerned for JANEL. 11/14 Cr decreased 2.86 and BUN decreased to 38. HCV, HBV, HIV screeing was negative, proteinuria decreased. U/A was not active. Changed hydralazine to PO. Metronidazole changed fromIV to oral per ID consultation. Insulin lantus was increased from 25 to 28 per medicine. Podiatry amputated the first metatarsal of left toe. Nursing doing dressing changes. Episode of hypertension. Medicine following and recommends adding amlodipine and carvedilol. Okay from surgery perspective for discharge. 11/18 podiatry signed off, medicine signed off 11/20. Awaiting rehab facility that could provide wound cares. Plan: - Daily AM CBC and BMP for now - Dressing change daily and PRN by nursing Type 2 DM Diagnosed with Dmt2 in 2010. Home regimen: 30u glargine BID, lispro 14u TID AC metformin 500mg BID.Most recent a1c 6.8% on 07/27/23. Continue Glargine 30 units Q24H, Aspart TID AC and at bedtime While on PO: - consistent carb diet, medium - glucose checks QID TID AC and HS Discharge recommendations (please page medicine morning of DC to confirm no changes) - Continue home diabetes regimen: - 30u glargine BID - lispro 10u TID AC - metformin 500mg BID HTN -Continue with oral hydralazine BID 40mg, -prazosin 1mg at bedtime. -Continue Amlodipine 10mg Daily - Resume LEI MAKER losartan 50mg PO Daily when Cr is closer to baseline (1.0) Acute Kidney Injury Monitor urine output and BMP closely. 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 Would give dose here if due and if available on formulary. Tobacco use - offer nicotine patches, gum, lozenges while inpatient - cessation counseling provided Neuro/Pain Control: Multimodal -Scheduled: Tylenol, Gabapentin, cyclobenzaprine, Lexapro, Trazodone -PRN: Oxycodone Skin/Wounds: Daily dressing changes by nursing DVT prophylaxis: Ambulating Weight Bearing: WBAT Activity: Ad celia/with assist Disposition: Home Nicola Vasquez MD, 11/21/2023 12:31 PM PGY-1 General Surgery Associated attestation - Alma Owusu MD - 11/21/2023 5:48 PM CDT FACULTY WITH RESIDENT: I saw and evaluated the patient 11/21/2023. I discussed with the team and agree with the findings and plan documented in the resident's note. Any revisions by me are documented. Alma Owusu MD, 11/21/2023 5:48 PM Attending Physician General/Trauma Surgery Surgical Critical Care * Scar Leyva MD - 11/21/2023 10:52 AM CDT MEDICINE CONSULT FOLLOW-UP- STAFF Matt Low : 1980 Sex: male Patient Summary: Matt Low is a 43 y.o. male with PMH of T2DM, prior TMA or right foot, HTN, paranoid schizophrenia, situs inversus, tobacco use, obesity, admitted on 11/10/2023 as a transfer from [facility] for emergent surgical debridement for demar's gangrene. Medicine was consulted by Dr. Churchill for: Diabetes management, antibiotic selection I spoke to primary team and offered recommendations. Primary outstanding issues are monitoring off antibiotics, ensured continued improvement in renal function, and BP/DM management. Medically ready to discharge today 11/20. Medicine service will sign off today - recommend following up BMP tomorrow and then in 1 week if discharging. ASSESSMENT: HTN, improved - Significantly elevated earlier in hospital stay, prompting initiation of amlodipineand low-dose carvedilol as well as increased intensity of PRN hydralazine. No signs/sx of hypertensive emergency. Today 11/20, BP is fluctuating but more often WNL on checks. It's possible that patient's trips outside to smoke are elevating his blood pressure; he posits this is the primary etiology of higher BP values. Plan to continue amlodipine and monitor for now, with intent to resume ARB onceserum Cr normalizes. Nonoliguric Acute Kidney Injury, improving, likely ATN - multifactorial given vanc/zosyn, contrast,infection. Repeat urinalysis unremarkable and prot/Cr elevated but non-nephrotic. Serum Cr 2.07 today, improved from yesterday. Recommend daily BMP while hospitalized, with plan for outpatient BMP next week to ensure continued improvement and consideration of restarting ARB. Perineal Necrotizing fasciitis s/p sharp excisional debridement 11/11/23 - vitals, WBC improving. Afebrile. Completed course of ceftriaxone and metronidazole. Appreciate ID service assistance - they saw the patient again 11/17. Plan to monitor off abx and restart if fever develops. Left great toe gangrene POD #4 s/p L hallux amputation- Podiatry team was consulted and performed Lhallux amputation 11/16. Completed ceftriaxone and Flagyl. Intraoperative cultures were collected and tissue culture growing MRSA. I spoke to Infectious Disease team and no need to treat immediately since infected bone was completely amputated. We will continue to monitor off abx for now; restart iffever develops. ID has signed off. Type 2 DM with neuropathy, retinopathy - sugars are above goal here (FPG goal <150). LEI MAKER lantus 30 units BID, lispro 10 units TID AC, metformin 500mg BID. A1c 6.8% on 07/27/23. Complications include h/o diabetes related infections. Hold LEI MAKER metformin while admitted. Continue statin. 11/12 got 25u lantus (<0.2/kg) and 35u aspart. Likely needs increase in insulin dosing but also use caution with impaired renal clearance / worsening renal function and this can contribute to hypoglycemia. Serum glucose levels are slightly improved on LEI MAKER regimen of 30 U daily Lantus. Serum glucose levels better controlled today and more consistent in the 126 - 165 range. If patient's facility is able to provide carb-based insulin dosing, recommend continuing current regimen of 30 U Lantus daily and 2 U/CHOwith meals. If they are unable to provide carb-based insulin dosing, recommend 6 U Aspart TID AC (in addition to Lantus) with titration of this regimen PRN by facility provider. Paranoid schizophrenia - restarted LEI MAKER meds (escitalopram 20mg qhs, trazodone 50mg qhs, prazosin 1mg qhs). Given paliperidone (Invega) IM on 11/12/23 (due every 4 weeks for schizophrenia) Tobacco use - offer nicotine patches, gum, lozenges while inpatient H/o TBI Obesity RECOMMENDATIONS 11/15/23 Continue Lantus 30 U daily. If patient's facility is able to provide carb-based insulin dosing, recommend continuing current regimen of 30 U Lantus daily and 2 U/CHO with meals. If they are unable toprovide carb-based insulin dosing, recommend 6 U Aspart TID AC (in addition to Lantus) with titration of this regimen PRN by facility provider. Continuing amlodipine Recheck BMP tomorrow. If discharging on 11/21, recommend recheck as outpatient on 11/25 or 2 Resume patient's LEI MAKER losartan 50mg PO daily when Cr is closer to baseline (approx 1.0) Strict I/O, monitor UOP. Avoid nephrotoxins (IV contrast, NSAIDs), renal dosing of meds Medicine service will sign off. Please page Hospitalist Consult A on [employer] for any further issues or questions. SUBJECTIVE/Events of Past 24 Hours: Hospital Day: 11 Mr Low feels well today. Denies any symptoms. Pain controlled. He believes postoperative dressing changes can be done by his current fpc; I encouraged him to discuss that with his primary team and pillowcase cleaner. Amenable to plan, looking forward to leaving the hospital soon. OBJECTIVE: Blood pressure 133/58, pulse 78, temperature 36.8 ??C (98.3 ??F), temperature source Oral, resp. rate 18, height 1.803 m (5' 10.98), weight (!) 142.9 kg (315 lb 1.6 oz), SpO2 96%. Physical Exam Constitutional: General: He is not in acute distress. HENT: Head: Normocephalic. Eyes: General: No scleral icterus. Cardiovascular: Rate and Rhythm: Normal rate and regular rhythm. Pulmonary: Effort: Pulmonary effort is normal. No respiratory distress. Abdominal: General: Bowel sounds are normal. Tenderness: There is no abdominal tenderness. There is no guarding. Skin: General: Skin is warm and dry. Neurological: Mental Status: He is alert. Mental status is at baseline. Wearing postoperative Podiatric shoe on L foot. Exam generally unchanged today 11/19. Labs reviewed Scar Leyva MD [facility] Medicine * Paula Black DPM - 11/21/2023 5:58 AM CDT Images from the original note were not included. Podiatric Surgery Inpatient Progress Note - PGY-3 Matt Low : 1980 Sex: male Patient Summary: Matt Low is a 43 y.o. male with PMH of T2DM, prior TMA or right foot, HTN, paranoid schizophrenia, situs inversus, tobacco use, obesity, admitted on 11/10/2023 as a transfer from OSH for emergent surgical debridement for demar's gangren ASSESSMENT: Incision dehiscence due to noncompliance, left --Went for a walk without protective shoe gear immediately after surgery --No acute signs of infection and wound is granulating in s/p Left hallux amputation (DOS 11/17/2023 Dr. Palomo) --Indication: gangrenous hallux, possible stable gas forming infection, right --Present on admission --Gas identified on outside CT 11/09 Daily Tobacco Use Possible small vessel disease --Present on admission --Distal tip of hallux gangrenous --AUS completed 11/16 with no additional workup indicated Controlled T2DM with peripheral neuropathy --A1C: 6.8% 07/2023 Right TMA --Present on admission, done at OSH --No wounds Paranoid Schizophrenia History of TBI --Patient is own MDM. Confirmed with patient and primary team RECOMMENDATIONS: 1. Dressing: Dressed bedside with Betadine, 4 x 4 gauze, Kerlix, gabriella, stocking. Ordered RN dressingchanges to be done daily. Our team will check weekly while admitted. 2. Activity: Heel touch WB in surgical shoe. Surgical shoe present in room. Patient was walking on unit immediately after surgery without shoe AMA. 3. Antibiotics: ID consulted per primary team. Clean and dirty soft tissue cultures taken in surgery 11/16. 4. Vascular: No additional workup indicated at this time. Appropriate bleeding in OR and bedside. AUS completed 11/16 with no evidence of inflow disease. 5. Imaging: No additional imaging needed at this time. Immediate postop x-rays ordered in PACU. 6. Surgery: No additional surgery planned from a podiatric standpoint during this stay 7. Follow-up: Patient is okay to discharge from our standpoint. Patient follows with Dr Hayden in [facility] and would prefer to follow up with him upon discharge. We are happy to schedule anappointment with patient if he wishes to follow up with our team. Please page director of recruitment and admissions resident with questions. Interval History Patient was seen and evaluated at bedside. Doing well and tolerates dressings. No new questions this morning. REVIEW OF SYSTEMS: ALL other ROS negative except for those noted in HPI. PHYSICAL EXAMINATIONS: Temp (24hrs), Av.5 ??C (97.7 ??F), Min:36.3 ??C (97.4 ??F), Max:36.8 ??C (98.3 ??F) General: No apparent distress, alert and oriented Vascular: Pulses: PT/DP pulses nonpalpable, bilateral Hair growth absent at the level of the digits Capillary filling time less than three seconds on left digits 2-5 Lower extremity/foot edema absent Neurological: Protective sensation deficit noted - bilaterally to light touch Strength and tone bilaterally lower extremity muscles rated at 5/5 in all quadrants in lower leg and foot Dermatologic: Skin well approximated with sutures intact. Central incision gapping with one suture popped No signs of acute infection present. Erythema and edema present consistent with post op course. No evidence of CRPS. Musculoskeletal: Right TMA No tenderness to palpation left foot Left hallux amputation REVIEW OF LABORATORY, PATHOLOGY, AND RADIOLOGY DATA: Lab results: Lab Results Component Value Date WBC 11.48 (H) 11/21/2023 RBC 3.21 (L) 11/21/2023 HGB 9.0 (L) 11/21/2023 HCT 28.7 (L) 11/21/2023 PLT 510 (H) 11/21/2023 Lab Results Component Value Date NA 138 11/21/2023 K 4.8 11/21/2023 CHLORIDE 103 11/21/2023 CO2 27 11/21/2023 GLU 128 (H) 11/21/2023 UN 21 (H) 11/21/2023 CR 2.07 (H) 11/21/2023 CA 8.4 (L) 11/21/2023 Lab Results Component Value Date/Time APTT 32.9 11/10/2023 1431 No results found for: HGBA1C Primary care physician: No primary care provider on file. Samina Singletary DPM, 11/21/2023 5:58 AM Podiatric Surgery Resident FACULTY NOTE FACULTY WITH RESIDENT: I saw and evaluated the patient on the date of the resident's note. I discussed with the resident and agree with the resident's findings and plan documented in the resident's note. Any revisions by me are documented. Paula Black DPM, 11/22/2023 7:50 AM * Eusebio Javier MD - 11/20/2023 1:28 PM CDT SURGERY PROGRESS NOTE--PGY1 Matt Thibodeaux Daryamaryzena : 1980 Sex: male SIGNIFICANT EVENTS IN THE PAST 24 HRS: Pt walked on his surgical site with no boot. Began to bleed again. Podiatry consulted. Later had BPs in 220s. Given IV hydralazine. SUBJECTIVE: Pt reports doing well. States no pain, fever, and SOB. Pt notes still dizzy and lightheaded from last night. OBJECTIVE: BP 149/79 (Cuff Location: Left Arm) Pulse 85 Temp 36.4 ??C (97.5 ??F) (Axillary) Resp 18 Ht1.803 m (5' 10.98) Wt (!) 144.1 kg (317 lb 9.6 oz) SpO2 97% BMI 44.32 kg/m?? Body mass index is 44.32 kg/m??. Intake/Output Summary (Last 24 hours) at 11/20/2023 1328 Last data filed at 11/20/2023 0745 Gross per 24 hour Intake 730 ml Output -- Net 730 ml Physical Examination: General: Patient laying in bed awake, not in acute distress. CV: Rate as noted, regular rhythm, Pulm: Unlabored Respirations. On Room Air. Abd: Abdomen soft, non-tender, non-distended. Labs / Imaging: BMP Lab Results Component Value Date/Time NA 140 11/20/2023 0818 K 4.9 11/20/2023 0818 CHLORIDE 105 11/20/2023 0818 CO2 26 11/20/2023 0818 GLU 147 (H) 11/20/2023 0818 UN 21 (H) 11/20/2023 0818 CR 2.02 (H) 11/20/2023 0818 CA 8.4 (L) 11/20/2023 0818 CMP Lab Results Component Value Date/Time NA 140 11/20/2023 0818 K 4.9 11/20/2023 0818 CHLORIDE 105 11/20/2023 0818 CO2 26 11/20/2023 0818 GLU 147 (H) 11/20/2023 0818 UN 21 (H) 11/20/2023 0818 CR 2.02 (H) 11/20/2023 0818 CA 8.4 (L) 11/20/2023 0818 MG 2.4 11/14/2023 0530 ALBUMIN 2.9 (L) 11/10/2023 1431 TPRO 7.1 11/10/2023 1431 ALP 104 11/10/2023 1431 ALT 9 11/10/2023 1431 AST 14 11/10/2023 1431 TBILI 0.3 11/10/2023 1431 Lab Results Component Value Date/Time WBC 10.90 (H) 11/20/2023 0818 RBC 3.17 (L) 11/20/2023 0818 HGB 9.0 (L) 11/20/2023 0818 HCT 28.3 (L) 11/20/2023 0818 PLT 492 (H) 11/20/2023 0818 MCV 89.3 11/20/2023 0818 MCH 28.4 11/20/2023 0818 MCHC 31.8 11/20/2023 0818 RDW 14.3 11/20/2023 0818 MPV 9.2 11/20/2023 0818 NEUTNO 6.51 (H) 11/20/2023 0818 LYMPHAB 2.07 11/20/2023 0818 MONOABSNO 1.27 (H) 11/20/2023 0818 EOSNUMB 0.45 11/20/2023 0818 BASO 0.03 11/20/2023 0818 Susceptibility data from last 90 days. Collected Specimen Info Organism Clindamycin Susceptibility Daptomycin Erythromycin Levofloxacin Linezolid Oxacillin Tetracycline Trimethoprim/Sulfamethoxazole Vancomycin 11/17/23 Tissue from Toe Methicillin-Resistant Staphylococcus aureus (MRSA) R S R R S R S S S Staphylococcus lugdunensis R R S S S S S S 11/17/23 Tissue from Toe Methicillin-Resistant Staphylococcus aureus (MRSA) R S R R S R S S S Group b beta hemolytic streptococcus 11/10/23 Tissue from Perineal Staphylococcus epidermidis Actinomyces species Staphylococcus pettenkoferi 11/10/23 Swab from Perineal Staphylococcus epidermidis Actinomyces species ASSESSMENT: 43 y.o. 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 S/p perineal debridement (11/09 and 11/10). Surgery team changed the dressing 11/13. 11/13 Cr raised to 3.21 from 3.04 and Bun increased from 37 to 40,concerned for JANEL. 11/14 Cr decreased 2.86 and BUN decreased to 38. HCV, HBV, HIV screeing was negative, proteinuria decreased. U/A was not active. Changed hydralazine to PO. Metronidazole changed fromIV to oral per ID consultation. Insulin lantus was increased from 25 to 28 per medicine. Podiatry amputated the first metatarsal of left toe. Nursing doing dressing changes. Episode of hypertension. Medicine following and recommends adding amlodipine and carvedilol. Okay from surgery perspective for discharge. 11/18 podiatry signed off, medicine will sign off 11/20. Plan: - Daily AM CBC and BMP for now - Dressing change daily and PRN by nursing Type 2 DM Diagnosed with Dmt2 in 2010. Home regimen: 30u glargine BID, lispro 14u TID AC metformin 500mg BID.Most recent a1c 6.8% on 07/27/23. Continue Glargine 30 units Q24H, Aspart TID AC and at bedtime While on PO: - consistent carb diet, medium - glucose checks QID TID AC and HS Discharge recommendations (please page medicine morning of DC to confirm no changes) - Continue home diabetes regimen: - 30u glargine BID - lispro 10u TID AC - metformin 500mg BID HTN -Continue with oral hydralazine BID 40mg, -prazosin 1mg at bedtime. -Start Amlodipine 10mg Daily Acute Kidney Injury Monitor urine output and BMP closely. 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 Would give dose here if due and if available on formulary. Tobacco use - offer nicotine patches, gum, lozenges while inpatient - cessation counseling as able Neuro/Pain Control: Multimodal -Scheduled: Tylenol, Gabapentin, cyclobenzaprine, Lexapro, Trazodone -PRN: Hydromorphone Skin/Wounds: Dressing changed (11/17) DVT prophylaxis: SCDs, Lovenox 40 BID Weight Bearing: WBAT Activity: Ad celia/with assist Disposition: Home Nico Hogue MD, 11/20/2023 1:28 PM PGY-1 General Surgery FACULTY NOTE I saw and evaluated the patient on the date of the resident's note. I discussed with the resident and agree with the resident???s findings and plan documented in the resident???s note from above. Anyrevisions by me are documented. Eusebio Javier MD, 11/20/2023 2:56 PM * Scar Leyva MD - 11/20/2023 11:45 AM CDT MEDICINE CONSULT FOLLOW-UP- STAFF Matt Low : 1980 Sex: male Patient Summary: Matt Low is a 43 y.o. male with PMH of T2DM, prior TMA or right foot, HTN, paranoid schizophrenia, situs inversus, tobacco use, obesity, admitted on 11/10/2023 as a transfer from [facility] for emergent surgical debridement for demar's gangrene. Medicine was consulted by Dr. Churchill for: Diabetes management, antibiotic selection I spoke to primary team and offered recommendations. Primary outstanding issues are monitoring off antibiotics, ensured continued improvement in renal function, and BP/DM management. Nearing readiness for discharge from Medical perspective - medically ready to discharge today 11/19. Medicine servicewill sign off tomorrow pending continued BP, renal, and glucose stability. ASSESSMENT: HTN, improved - Significantly elevated earlier in hospital stay, prompting initiation of amlodipineand low-dose carvedilol as well as increased intensity of PRN hydralazine. No signs/sx of hypertensive emergency. Today 11/19, BP is again fluctuating. It's possible that patient's trips outside to smoke are elevating his blood pressure; he posits this is the primary etiology of higher BP values. Plan to continue amlodipine and monitor for now, with intent to resume ARB once serum Cr normalizes. If BP remains consistently elevated, we may need to add an additional agent soon, though patient did not seem to tolerate carvedilol (dizziness after first dose). Nonoliguric Acute Kidney Injury, improving, likely ATN - multifactorial given vanc/zosyn, contrast,infection. Repeat urinalysis unremarkable and prot/Cr elevated but non-nephrotic. Serum Cr 2.02 today, improved from yesterday. Recommend daily BMP while hospitalized, with plan for outpatient BMP next week to ensure continued improvement and consideration of restarting ARB. Perineal Necrotizing fasciitis s/p sharp excisional debridement 11/11/23 - vitals, WBC improving. Afebrile. Completed course of ceftriaxone and metronidazole. Appreciate ID service assistance - they saw the patient again 11/17. Plan to monitor off abx and restart if fever develops. Left great toe gangrene POD #1 s/p L hallux amputation- Podiatry team was consulted and performed Lhallux amputation 11/16. Completed ceftriaxone and Flagyl will conclude tomorrow; intraoperative cultures were collected and tissue culture growing MRSA. I spoke to Infectious Disease team and no needto treat immediately since infected bone was completely amputated. We will continue to monitor off abx for now; restart if fever develops. ID has signed off. Type 2 DM with neuropathy, retinopathy - sugars are above goal here (FPG goal <150). LEI MAKER lantus 30 units BID, lispro 10 units TID AC, metformin 500mg BID. A1c 6.8% on 07/27/23. Complications include h/o diabetes related infections. Hold LEI MAKER metformin while admitted. Continue statin. 11/12 got 25u lantus (<0.2/kg) and 35u aspart. Likely needs increase in insulin dosing but also use caution with impaired renal clearance / worsening renal function and this can contribute to hypoglycemia. Serum glucose levels are slightly improved on LEI MAKER regimen of 30 U daily Lantus. Serum glucose levels better controlled today and more consistent in the 126 - 165 range. Continue current dosing for now with monitoring of serum glucose levels. Paranoid schizophrenia - restarted LEI MAKER meds (escitalopram 20mg qhs, trazodone 50mg qhs, prazosin 1mg qhs). Given paliperidone (Invega) IM on 11/12/23 (due every 4 weeks for schizophrenia) Tobacco use - offer nicotine patches, gum, lozenges while inpatient H/o TBI Obesity RECOMMENDATIONS 11/15/23 Continue Lantus to 30 U qd Continuing amlodipine, monitoring BP to determine if second agent needed with recent improvement Resume patient's LEI MAKER losartan 50mg PO daily when Cr is closer to baseline (likely ~1.0) Strict I/O, monitor UOP. Avoid nephrotoxins (IV contrast, NSAIDs), renal dosing of meds Medicine service will sign off tomorrow 11/20 if clinical stability/improvement continues. Please page Hospitalist Consult A on [employer] for any further issues or questions. SUBJECTIVE/Events of Past 24 Hours: Hospital Day: 10 Mr Low feels well today. Denies any symptoms. Pain controlled. Thinks smoke breaks might be contributing to his hypertensive episodes, though he does not have any symptoms while on these treks. Amenable to plan and feels ready to discharge. OBJECTIVE: Blood pressure 149/79, pulse 85, temperature 36.4 ??C (97.5 ??F), temperature source Axillary, resp. rate 18, height 1.803 m (5' 10.98), weight (!) 144.1 kg (317 lb 9.6 oz), SpO2 97%. Physical Exam Constitutional: General: He is not in acute distress. HENT: Head: Normocephalic. Eyes: General: No scleral icterus. Cardiovascular: Rate and Rhythm: Normal rate and regular rhythm. Pulmonary: Effort: Pulmonary effort is normal. No respiratory distress. Abdominal: General: Bowel sounds are normal. Tenderness: There is no abdominal tenderness. There is no guarding. Skin: General: Skin is warm and dry. Neurological: Mental Status: He is alert. Mental status is at baseline. Wearing postoperative Podiatric shoe on L foot. Exam generally unchanged today 11/19. Labs reviewed Scar Leyva MD Hospital Medicine * Scar Leyva MD - 11/19/2023 3:51 PM CDT MEDICINE CONSULT FOLLOW-UP- STAFF Matt Low : 1980 Sex: male Patient Summary: Matt Low is a 43 y.o. male with PMH of T2DM, prior TMA or right foot, HTN, paranoid schizophrenia, situs inversus, tobacco use, obesity, admitted on 11/10/2023 as a transfer from OSH for emergent surgical debridement for demar's gangrene. Medicine was consulted by Dr. Churchill for: Diabetes management, antibiotic selection I spoke to primary team and offered recommendations. Primary outstanding issues are monitoring off antibiotics, ensured continued improvement in renal function, and BP/DM management. Nearing readiness for discharge from Medical perspective - should be medically ready to discharge tomorrow 11/19 provided continued clinical stability. ASSESSMENT: HTN, improved - Significantly elevated earlier in hospital stay, prompting initiation of amlodipineand low-dose carvedilol as well as increased intensity of PRN hydralazine. No signs/sx of hypertensive emergency. Today 11/18, BP is fluctuating. Etiology of hypertension for the last two days is not entirely clear; patient notes feeling less pain and anxiety 11/17 so that could be playing a role. Plan to continue amlodipine and monitor for now, with intent to resume ARB once serum Cr normalizes. If BP remains consistently elevated, we may need to add an additional agent soon, though patient did not seem to tolerate carvedilol (dizziness after first dose). Nonoliguric Acute Kidney Injury, improving, likely ATN - multifactorial given vanc/zosyn, contrast,infection. Repeat urinalysis unremarkable and prot/Cr elevated but non-nephrotic. Serum Cr 2.19 today, essentially unchanged from yesterday. Recommend daily BMP while hospitalized, with plan for outpatient BMP next week to ensure continued improvement and consideration of restarting ARB. Perineal Necrotizing fasciitis s/p sharp excisional debridement 11/11/23 - vitals, WBC improving. Afebrile. Completed course of ceftriaxone and metronidazole. Appreciate ID service assistance - they saw the patient again 11/17. Plan to monitor off abx and restart if fever develops. Left great toe gangrene POD #1 s/p L hallux amputation- Podiatry team was consulted and performed Lhallux amputation 11/16. Completed ceftriaxone and Flagyl will conclude tomorrow; intraoperative cultures were collected and tissue culture growing MRSA. I spoke to Infectious Disease team and no needto treat immediately since infected bone was completely amputated. We will continue to monitor off abx for now; restart if fever develops. ID has signed off. Type 2 DM with neuropathy, retinopathy - sugars are above goal here (FPG goal <150). LEI MAKER lantus 30 units BID, lispro 10 units TID AC, metformin 500mg BID. A1c 6.8% on 07/27/23. Complications include h/o diabetes related infections. Hold LEI MAKER metformin while admitted. Continue statin. 11/12 got 25u lantus (<0.2/kg) and 35u aspart. Likely needs increase in insulin dosing but also use caution with impaired renal clearance / worsening renal function and this can contribute to hypoglycemia. Serum glucose levels are slightly improved on LEI MAKER regimen of 30 U daily Lantus. One reading of 69 yesterday - unclear if patient had any symptoms. Continue current dosing for now with monitoring of serum glucose levels. Paranoid schizophrenia - restarted LEI MAKER meds (escitalopram 20mg qhs, trazodone 50mg qhs, prazosin 1mg qhs). Given paliperidone (Invega) IM on 11/12/23 (due every 4 weeks for schizophrenia) Tobacco use - offer nicotine patches, gum, lozenges while inpatient H/o TBI Obesity RECOMMENDATIONS 11/15/23 Continue Lantus to 30 U qd Continuing amlodipine, monitoring BP to determine if second agent needed with recent improvement Resume patient's LEI MAKER losartan 50mg PO daily when Cr is closer to baseline (likely ~1.0) Strict I/O, monitor UOP. Avoid nephrotoxins (IV contrast, NSAIDs), renal dosing of meds Medicine will continue to follow. Please page Hospitalist Consult A on [employer] for any further issues or questions. SUBJECTIVE/Events of Past 24 Hours: Hospital Day: 9 Mr Low feels the same today. He is hoping to discharge soon. Denies dyspnea, fever/chills, painanywhere but at surgical site in the foot. Ambulating well today. Tolerating PO. Making good amountof urine. Amenable to plan. OBJECTIVE: Blood pressure (!) 174/77, pulse 80, temperature 36.5 ??C (97.7 ??F), temperature source Oral, resp. rate 18, height 1.803 m (5' 10.98), weight (!) 140.5 kg (309 lb 11.9 oz), SpO2 95%. Physical Exam Constitutional: General: He is not in acute distress. HENT: Head: Normocephalic. Eyes: General: No scleral icterus. Cardiovascular: Rate and Rhythm: Normal rate and regular rhythm. Pulmonary: Effort: Pulmonary effort is normal. No respiratory distress. Abdominal: General: Bowel sounds are normal. Tenderness: There is no abdominal tenderness. There is no guarding. Skin: General: Skin is warm and dry. Neurological: Mental Status: He is alert. Mental status is at baseline. Wearing postoperative Podiatric shoe on L foot. Exam generally unchanged today 11/18. Labs reviewed Scar Leyva MD [facility] Medicine * Kenrick Fisher Chi, PT - 11/19/2023 1:21 PM CDT Physical Therapy Patient not seen today d/t prioritisation/time constraints. Kenrick Fisher PT License #[id number] PT Tel #: [phone] On [employer] * Nicola Vasquez MD - 11/19/2023 11:54 AM CDT SURGERY PROGRESS NOTE--PGY1 Matt Low : 1980 Sex: male SIGNIFICANT EVENTS IN THE PAST 24 HRS: No significant events overnight. SUBJECTIVE: He mentions having minimal pain of his right foot, and no pain around his perineal debridement. He is able to get around on his own and denies any fever, nausea, and vomiting. Has been able to urinate and pass stool without difficulty. OBJECTIVE: BP 145/86 (Cuff Location: Right Arm) Pulse 76 Temp 35.4 ??C (95.7 ??F) (Axillary) Resp 16 Ht 1.803 m (5' 10.98) Wt (!) 140.5 kg (309 lb 11.9 oz) SpO2 95% BMI 43.22 kg/m?? Body mass index is 43.22 kg/m??. Intake/Output Summary (Last 24 hours) at 11/19/2023 1154 Last data filed at 11/19/2023 1028 Gross per 24 hour Intake -- Output 3 ml Net -3 ml Physical Examination: General: Patient laying in bed awake, not in acute distress. CV: Rate as noted, regular rhythm, Pulm: Unlabored Respirations. On Room Air. Abd: Abdomen soft, non-tender, non-distended. Labs / Imaging: BMP Lab Results Component Value Date/Time NA 138 11/19/2023 0758 K 4.7 11/19/2023 0758 CHLORIDE 104 11/19/2023 0758 CO2 24 11/19/2023 0758 GLU 221 (H) 11/19/2023 0758 UN 25 (H) 11/19/2023 0758 CR 2.19 (H) 11/19/2023 0758 CA 7.8 (L) 11/19/2023 0758 CMP Lab Results Component Value Date/Time NA 138 11/19/2023 0758 K 4.7 11/19/2023 0758 CHLORIDE 104 11/19/2023 0758 CO2 24 11/19/2023 0758 GLU 221 (H) 11/19/2023 0758 UN 25 (H) 11/19/2023 0758 CR 2.19 (H) 11/19/2023 0758 CA 7.8 (L) 11/19/2023 0758 MG 2.4 11/14/2023 0530 ALBUMIN 2.9 (L) 11/10/2023 1431 TPRO 7.1 11/10/2023 1431 ALP 104 11/10/2023 1431 ALT 9 11/10/2023 1431 AST 14 11/10/2023 1431 TBILI 0.3 11/10/2023 1431 Lab Results Component Value Date/Time WBC 10.66 (H) 11/19/2023 0758 RBC 3.14 (L) 11/19/2023 0758 HGB 9.0 (L) 11/19/2023 0758 HCT 27.7 (L) 11/19/2023 0758 PLT 482 (H) 11/19/2023 0758 MCV 88.2 11/19/2023 0758 MCH 28.7 11/19/2023 0758 MCHC 32.5 11/19/2023 0758 RDW 14.3 11/19/2023 0758 MPV 9.2 11/19/2023 0758 NEUTNO 8.10 (H) 11/19/2023 0758 LYMPHAB 1.07 11/19/2023 0758 MONOABSNO 0.85 11/19/2023 0758 EOSNUMB 0.32 11/19/2023 0758 BASO 0.11 11/19/2023 0758 Susceptibility data from last 90 days. Collected Specimen Info Organism Clindamycin Susceptibility Daptomycin Erythromycin Levofloxacin Linezolid Oxacillin Tetracycline Trimethoprim/Sulfamethoxazole Vancomycin 11/17/23 Tissue from Toe Methicillin-Resistant Staphylococcus aureus (MRSA) R S R R S R S S S Staphylococcus lugdunensis 11/17/23 Tissue from Toe Staphylococcus aureus Group b beta hemolytic streptococcus 11/10/23 Tissue from Perineal Staphylococcus epidermidis Actinomyces species Staphylococcus pettenkoferi 11/10/23 Swab from Perineal Staphylococcus epidermidis Actinomyces species ASSESSMENT: 43 y.o. 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 S/p perineal debridement (11/09 and 11/10). S/p left hallux amputation (11/16). Hallux cultures came back as MRSA (11/16), podiatry mentions that margins were hard bone and appeared to be clear of infection so hold off MRSA coverage. BUN and Cr are still elevated, following medicine's recommendations (11/15/23) of strict I/O, monitor UOP, avoid nephrotoxins (IV contrast, NSAIDS), and renal dosing of meds. Plan: - Daily AM CBC for now - F/U Left great toe gangrene - Dressing change daily and PRN by nursing Necrotizing fascitis/Demar's gangrene s/p debridement Left hallux gangrene s/p amputation Recommendations per ID (11/19/23 11:42 AM) -Continue to follow off ceftriaxone and metronidazole - Despite MRSA/Staph lugdunensis on toe cultures, confirmed with podiatry that the margins were hard bone and appeared to be clear of infection so hold on additional MRSA coverage for now unless proximal margins are concerning for ongoing infection on finalized pathology -Check CBC with diff monitoring lab(s). Type 2 DM Diagnosed with Dmt2 in 2010. Home regimen: 30u glargine BID, lispro 10u TID AC metformin 500mg BID.Most recent a1c 6.8% on 07/27/23. Continue Glargine 25 units Q24H, Aspart TID AC and at bedtime While on PO: - consistent carb diet, medium - glucose checks QID TID AC and HS Discharge recommendations (please page medicine morning of DC to confirm no changes) - Continue home diabetes regimen: - 30u glargine BID - lispro 10u TID AC - metformin 500mg BID HTN -Continue with oral hydralazine BID 40mg, -prazosin 1mg at bedtime. -Continue carvedilol 6.25mg BID -Continue Amlodipine 10mg Daily Acute Kidney Injury Cr 2.19 increased but improved from 3.21 from 11/13. Baseline around 1.0. Last urinalysis was normal beside increased glucose 2/2 uncontrolled Td2m. 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 Would give dose here if due and if available on formulary. Tobacco use - offer nicotine patches, gum, lozenges while inpatient - cessation counseling as able Neuro/Pain Control: Multimodal -Scheduled: Tylenol, Gabapentin, cyclobenzaprine, Lexapro, Trazodone -PRN: Hydromorphone DVT prophylaxis: SCDs, Lovenox 40 BID Weight Bearing: WBAT Activity: Ad celia/with assist Disposition: Home Consuelo Garibay, MS, 11/19/2023 11:54 AM RESIDENT WITH STUDENT: I saw the patient with the medical student today and performed, or re-performed, the physical exam and medical decision-making in the provision of this service and have verified the accuracy of all the medical student documentation and edited as necessary. Nicola Vasquez MD, 11/19/2023 2:20 PM PGY-1 General Surgery Associated attestation - Eusebio Espinoza MD - 11/24/2023 1:17 PM CDT FACULTY WITH RESIDENT: I saw and evaluated the patient on the date of the resident's note. I discussed with the resident and agree with the resident's findings and plan documented in the resident's note. Any revisions by me are documented. Eusebio Espinoza MD, 11/24/2023 1:17 PM * Aretha Damon MD - 11/19/2023 11:42 AM CDT ID PROGRESS NOTE Matt Low 1980 Male [id number] ASSESSMENT: # Necrotizing fascitis/Demar's gangrene s/p debridement # Left hallux gangrene s/p definitive amputation # Type II diabetes mellitus 43 y.o. male pmhx of T2DM with prior right toe [facility] s/p I&D x 2, currently on ceftriaxone and metronidazole. Surgical debridement is paramount and has been addressed. Was on antibiotic therapy from 11/09 until 11/16 for total of 7 days of treatment. Most recently on ceftriaxone and metronidazole. Now status post left hallux amputation on 11/16 with podiatry. Per operative note upon disarticulation metatarsal head noted to be clean, white, and hard without evidence of tracking infection. Cultures growing MRSA as well as staph lugdunensis however, surgical approach should represent source control of lower extremity process. Demar's gangrene is typically treated for total course of 7 to 14 days pending clinical improvement. Given his downtrending white count and lack of fevers, it is reasonable to follow off antibiotics given his 7 days of treatment. RECOMMENDATIONS: -Continue to follow off ceftriaxone and metronidazole - Despite MRSA/Staph lugdunensis on toe cultures, confirmed with Dr. Palomo that the margins were hard bone and appeared to be clear of infection so no need for additional MRSA coverage; pathology pending to confirm clear proximal margins ID-2 will sign off at this time. Please feel free to reach out with questions or concerns. SUBJECTIVE/OVERNIGHT EVENTS: -Feeling better this morning, up in chair listening to music. -Tolerating a diet without abdominal pain or nausea -Hoping to go outside today for fracture -Wearing a cam boot at all times on the left lower extremity - Not resting well in the hospital so is napping this morning ANTI-INFECTIVES: Current: - ceftriaxone (11/12-11/16) - metronidazole (11/12-11/17) Previous: - vancomycin (11/10 - 11/11) - pip-tazo (11/09 - 11/12) - clindamycin 11/09 - 11/11) - linezolid (11/09) EXAMINATION: BP 145/86 (Cuff Location: Right Arm) Pulse 76 Temp 35.4 ??C (95.7 ??F) (Axillary) Resp 16 Ht 1.803 m (5' 10.98) Wt (!) 140.5 kg (309 lb 11.9 oz) SpO2 95% BMI 43.22 kg/m?? Constitutional: Awake, alert, minimally interactive Pulmonary: Breathing comfortably on room air Cardiovascular: Warm and well-perfused GI/Abdomen: Soft, non-tender, non-distended, normoactive bowel sounds MSK: Left foot covered in boot, no obvious saturation of dressing, pink digits, no redness extending above the boot/bandages. Media tab from left foot imaging earlier today reviewed, wound looks clean, healthy, no purulence. RELEVANT DATA: Lab Results Component Value Date/Time NA 138 11/19/2023 0758 K 4.7 11/19/2023 0758 CHLORIDE 104 11/19/2023 0758 CO2 24 11/19/20238 CR 2.19 (H) 11/19/20238 GLU 221 (H) 11/19/2023757 Lab Results Component Value Date/Time HGB 9.0 (L) 11/19/2023757 WBC 10.66 (H) 11/19/2023757 PLT 482 (H) 11/19/2023757 Microbiology: Perineal cultures 11/09: Actinomyces, Staph pettenkoferi, Staph epi No fungal, AFB, growth 11/09 Bcx - NG 11/16 hallux cultures: MRSA x 2, Staph lugdunensis in 1 of 2, group B strep in 1 of 2 Imaging results: [facility]ed in [facility] Gulshan José MD ID fellow, PGY-[address] Damon FACULTY NOTE I saw and evaluated Matt Low on today, 11/19/2023. I discussed with the resident/fellow/medicalstudent and agree with the findings and plan documented above. Any revisions by me are documented. Additional Medical Decision Information: need 2 of 3 categories to bill at that level Number and Complexity of Problems This patient has 1 stable, chronic illness (LOW) 1 acute illness with systemic symptoms (MODERATE) 1 acute or chronic illness or [...] of the following. [x] I have reviewed the result(s) of each unique test and noted MRSA, Staph lugdunensis on culturesfrom toe, wbc 10.66 from 10.61, cr 2.19 Category 2: Independent interpretation of tests Category 3: Discussion of management or test interpretation [x] I discussed Management with Podiatry Dr. Palomo and we discussed/confirmed that she was able to definitively amputate the entirety of the infected bone intra-operatively. Aretha Damon MD, 11/19/2023 12:07 PM * Gracia Kumar RN - 11/19/2023 10:39 AM CDT 11/19/23 1038 Rapid Rounds Attendance Charge nurse;grain commodity manager;workers' compensation commissioner Expected Discharge Disposition SNF (TCU) Today we still await: Placement process (Pt is medically ready for placement to TCU, but does not have an accepting facility yet) Case Management Discharge Milestones Documentation Transportation Plan WC/Taxi/Stretcher Prior Auth/Pre-Admit Screen (!) Not completed * Chayo Townsend OTR/L - 11/19/2023 9:53 AM CDT Occupational Therapy Progress Note 11/19/2023 OT Discharge Recommendations Discharge Recommendations: Post-acute placement recommended Level/type of placement (OT): Sub-Acute Rehab facility Barriers to discharge to home/community: Caregiver availability not yet confirmed;Insufficient activity tolerance;Poor insight / safety judgement Supervision / Assistance Recommended for home DC: Yes Physical assistance recommended for (OT): Lower body dressing;Toileting;Bathing;IADL's Post Discharge Follow-up: OT at post-acute placement Equipment Recommended: Equipment needs to be determined at next level of care Equipment Status: OT In-patient follow-up / recommended referrals: Continue skilled OT services to achieve the goals on the plan of care / maximize safety and independence with ADL's / IADL's: - Recommended Frequency: 3x / week - Anticipated Duration of OT services: throughout hospital stay PM&R Consult Recommended: Precautions/Restrictions: Activity Level: Up Ad Celia (11/13/23 1100) General Precautions: Falls Risk (11/13/23 1100) SUBJECTIVE: I have to keep my foot like this. Pt able to recall wbing restrictions/technique; however, difficulty maintaining during activity Pain Pain Rating With Activity (Numeric): no overt signs of pain OBJECTIVE: Activities of Daily Living Grooming: Supervision/Stand by assist Grooming Comments: seated in recliner- completes oral and facial cares Upper Body Dressing: Minimal assist (75% patient effort) Upper Body Dressing Comments: gown management Functional Mobility Supine to/from Sit: Modified independence Sit to/from Stand : Supervision/Stand by assist;Minimal assist (75% patient effort) (CGA) Sit to/from Stand - Method: From standard seat height;w/ Assistive device Bed to/from Chair: Minimal assist (75% patient effort) (CGA) Bed to/from Chair - Method: Standing pivot w/ AD Bed to Bathroom: Minimal assist (75% patient effort) (CGA) Bed to Bathroom- Method: Front wheeled walker BP 145/86- no reports of dizziness with functional mobility this date Cognition Mental Status: Oriented x 3;Alert;Cooperative;Follows 1 step direction (able to recall positioning of LLE with activity (to maintain heel touch wb) difficulty implementing/motor planning to complete during ambulation/transfers) Delirium assessment: Confusion Assessment Method (CAM) Acute onset OR fluctuating course: No CAM result: Negative Delirium prevention / intervention appears indicated? No. Therapeutic Exercise/Activity Patient / Caregiver Training: Interdisciplinary Communication: RN: ok for session, aware chair alarm is not in room- pt would benefit from one ASSESSMENT: Pt able to complete functional mobility with min A within room environment. Continues to demonstrate difficulty adhering to wbing restrictions with activity. Completes grooming tasks seated in recliner. Pt up in chair, call light within reach at end of session. This patient will continue to benefit from skilled OT services for ADL retraining and activity tolerance to maximize independence and safety with ADLs. PLAN: Continue skilled OT services to achieve the goals on the plan of care: Plan For Next OT Session: --ADLs: LB dressing compensatory strategies and Progress from seated to standing level ADLs as able --Functional Mobility/Transfers: Toilet/commode transfer technique Total treatment time: 23 minutes OT interventions and time spent on each: Self care/Home mgmt/ADL: 23 minutes Chayo Townsend, OTR/L Pager: [facility] OT Department Problem: Loss of [place] With ADLs, Risk for Goal: Will complete lower body dressing Description: Patient will complete lower body dressing with Modified [place] (6). Outcome: In progress Goal: Will toilet self Description: Patient will toilet self with Modified [place] (6). Outcome: In progress * Paula Black DPM - 11/19/2023 5:15 AM CDT Images from the original note were not included. Podiatric Surgery Inpatient Progress Note - PGY-3 Matt Low : 1980 Sex: male Patient Summary: Matt Low is a 43 y.o. male with PMH of T2DM, prior TMA or right foot, HTN, paranoid schizophrenia, situs inversus, tobacco use, obesity, admitted on 11/10/2023 as a transfer from OSH for emergent surgical debridement for demar's gangren ASSESSMENT: Incision dehiscence due to noncompliance, left --Went for a walk without protective shoe gear immediately after surgery --No acute signs of infection 2 day s/p Left hallux amputation (DOS 11/17/2023 Dr. Palomo) --Indication: gangrenous hallux, possible stable gas forming infection, right --Present on admission --Gas identified on outside CT 11/09 Daily Tobacco Use Possible small vessel disease --Present on admission --Distal tip of hallux gangrenous --AUS completed 11/16 with no additional workup indicated Controlled T2DM with peripheral neuropathy --A1C: 6.8% 07/2023 Right TMA --Present on admission, done at OSH --No wounds Paranoid Schizophrenia History of TBI --Patient is own MDM. Confirmed with patient and primary team RECOMMENDATIONS: 1. Dressing: Dressed bedside with Betadine, 4 x 4 gauze, Kerlix, gabriella, stocking. Podiatry to manage dressings at this time. Steri strips fell off. Okay for nursing to reinforce as needed. 2. Activity: Heel touch WB in surgical shoe. Surgical shoe present in room. Patient was walking on unit immediately after surgery without shoe AMA. 3. Antibiotics: ID consulted per primary team. Clean and dirty soft tissue cultures taken in surgery 11/16. 4. Vascular: No additional workup indicated at this time. Appropriate bleeding in OR and bedside. AUS completed 11/16 with no evidence of inflow disease. 5. Imaging: No additional imaging needed at this time. Immediate postop x-rays ordered in PACU. 6. Surgery: No additional surgery planned from a podiatric standpoint during this stay 7. Follow-up: Patient is okay to discharge from our standpoint. Patient follows with Dr Hayden in [facility] and would prefer to follow up with him upon discharge. We are happy to schedule anappointment with patient if he wishes to follow up with our team. Please page director of recruitment and admissions resident with questions. Interval History Patient was seen and evaluated at bedside. Doing well. Kept shoe on. Has no pain or questions this morning. Otherwise doing well. REVIEW OF SYSTEMS: ALL other ROS negative except for those noted in HPI. PHYSICAL EXAMINATIONS: Temp (24hrs), Av.2 ??C (97.1 ??F), Min:35.5 ??C (95.9 ??F), Max:36.6 ??C (97.8 ??F) General: No apparent distress, alert and oriented Vascular: Pulses: PT/DP pulses nonpalpable, bilateral Hair growth absent at the level of the digits Capillary filling time less than three seconds on left digits 2-5 Lower extremity/foot edema absent Neurological: Protective sensation deficit noted - bilaterally to light touch Strength and tone bilaterally lower extremity muscles rated at 5/5 in all quadrants in lower leg and foot Dermatologic: Skin well approximated with sutures intact. Central incision gapping with one suture popped No signs of acute infection present. Erythema and edema present consistent with post op course. No evidence of CRPS. Musculoskeletal: Right TMA No tenderness to palpation left foot Left hallux amputation REVIEW OF LABORATORY, PATHOLOGY, AND RADIOLOGY DATA: Lab results: Lab Results Component Value Date WBC 10.61 (H) 11/18/2023 RBC 3.36 (L) 11/18/2023 HGB 9.4 (L) 11/18/2023 HCT 29.5 (L) 11/18/2023 PLT 495 (H) 11/18/2023 Lab Results Component Value Date NA 137 11/18/2023 K 4.5 11/18/2023 CHLORIDE 104 11/18/2023 CO2 24 11/18/2023 GLU 180 (H) 11/18/2023 UN 27 (H) 11/18/2023 CR 2.17 (H) 11/18/2023 CA 8.2 (L) 11/18/2023 Lab Results Component Value Date/Time APTT 32.9 11/10/2023 1431 No results found for: HGBA1C Primary care physician: No primary care provider on file. Samina Singletary DPM, 11/19/2023 5:15 AM Podiatric Surgery Resident FACULTY NOTE FACULTY WITH RESIDENT: I saw and evaluated the patient on the date of the resident's note. I discussed with the resident and agree with the resident's findings and plan documented in the resident's note. Any revisions by me are documented. Paula Black DPM, 11/19/2023 12:43 PM * Chayo Townsend, OTR/L - 11/18/2023 3:31 PM CDT Occupational Therapy Progress Note 11/18/2023 OT Discharge Recommendations Discharge Recommendations: Post-acute placement recommended Level/type of placement (OT): Sub-Acute Rehab facility Barriers to discharge to home/community: Caregiver availability not yet confirmed;Insufficient activity tolerance;Poor insight / safety judgement Supervision / Assistance Recommended for home DC: Yes Physical assistance recommended for (OT): Lower body dressing;Toileting;Bathing;IADL's Post Discharge Follow-up: OT at post-acute placement Equipment Recommended: Equipment needs to be determined at next level of care OT In-patient follow-up / recommended referrals: Continue skilled OT services to achieve the goals on the plan of care / maximize safety and independence with ADL's / IADL's: - Recommended Frequency: 3x / week - Anticipated Duration of OT services: throughout hospital stay PM&R Consult Recommended: Precautions/Restrictions: Activity Level: Up Ad Celia (11/13/23 1100) General Precautions: Falls Risk (11/13/23 1100) SUBJECTIVE: My right foot has been the bad one. Pain Pain Rating With Activity (Numeric): no overt signs of pain OBJECTIVE: Activities of Daily Living Toileting Comments: declined to complete during session, Ax1 with nursing Upper Body Dressing: Minimal assist (75% patient effort) Upper Body Dressing Comments: gown management Lower Body Dressing: Maximal assist (25% patient effort) Lower Body Dressing Comments: to don shoe on R foot, surgical shoe in place on L at start of session Functional Mobility Supine to/from Sit: Modified independence Sit to/from Stand : Supervision/Stand by assist Sit to/from Stand - Method: From standard seat height;w/o Assistive device Bed to Bathroom: Minimal assist (75% patient effort) Bed to Bathroom- Method: None Functional Mobility in Room- Task Done: walk in hallway for ADL endurance Functional Mobility in Room: Minimal assist (75% patient effort) Functional Mobility in Room- Method: None Pt functional mobility fluctuates from SBA to min A- difficulty adhering to heel touch wbing, requires max cues throughout session. Cognition Mental Status: Oriented x 3;Alert;Cooperative;Follows 1 step direction Delirium assessment: Confusion Assessment Method (CAM) Delirium prevention / intervention appears indicated? Yes, as a preventative measure: Therapeutic Exercise/Activity Patient / Caregiver Training: Interdisciplinary Communication: RN: ok to see, aware of dizziness/bed alarm/mobility PT: cotreat Clinical Coordinator: discussed pt ASSESSMENT: Pt with difficulty adhering to WBing precautions consistently this date. Requiring min A with functional mobility to ensure safety given reports of dizziness and intermittent unsteadiness. Recommend post acute placement to progress safety and independence with ADLs. This patient will continue to benefit from skilled OT services for ADL retraining, activity tolerance, and functional mobility to maximize independence and safety with ADLs. PLAN: Continue skilled OT services to achieve the goals on the plan of care: Plan For Next OT Session: --ADLs: LB dressing compensatory strategies and Toileting strategies --Functional Mobility/Transfers: Toilet/commode transfer technique Total treatment time: 30 minutes OT interventions and time spent on each: Self care/Home mgmt/ADL: 35 minutes Chayo Townsend OTR/L Pager: [employer] OT Department Problem: Loss of [place] With ADLs, Risk for Goal: Will complete lower body dressing Description: Patient will complete lower body dressing with Modified [place] (6). Outcome: In progress Goal: Will toilet self Description: Patient will toilet self with Modified [place] (6). Outcome: In progress * Kenrick Fisher Chi, PT - 11/18/2023 3:23 PM CDT Problem: Decreased Transfer Skills Goal: Patient will transfer sit to/from stand Description: Patient will transfer sit to/from stand while Heel touch WB on L LE in post-op shoe with (6) Modified [place] in order to mobilize in home by 12/09/23. Outcome: In progress Problem: Decreased Ambulatory Skills Goal: Improve gait Description: Ambulate 100 meters using an appropriate AD while heel touch WB on L LE in post-op shoe w Mod I by 12/09/2023 in order to mobilize in home and community by 11/28/23. Outcome: In progress Problem: Decreased Functional Motor Skills - PT Goal: Patient demonstrates improved balance Description: Pt will be able to demonstrate 45/56 or greater on [place]ina Balance test and 24/28 on [place] in order to reduce risk of falls at home by 12/09/23. Outcome: In progress Problem: Decreased Transfer Skills Goal: Patient will transfer supine to/from sit Description: Patient will transfer supine to/from sit with Mod I by 12/02/2023 without using a bed rail for decreased caregiver burden. Outcome: In progress Physical Therapy Progress Note PT Discharge Recommendations Discharge Recommendations: Post-acute placement recommended. Level/type of placement (PT): Sub-Acute Rehab facility Barriers to placement (PT): No known barriers to placement Barriers to discharge to home/community: Insufficient activity tolerance;Caregiver support/supervision insufficient;High falls risk;Poor insight / safety judgement If discharging to home, would need: Supervision when mobilizing;Physical assistance when mobilizing;Assist with community access and mobility Post discharge follow-up: PT at post-acute placement Equipment Status: Equipment needs being determined;Equipment issued PT Equipment Recommended: Front wheeled walker (Issued gait belt.) PM&R Recommended: * (No) S: Pain Pain Rating With Activity (Numeric): 0 Feeling Ok. Said he needed help to don his R shoe pre-admit b/c his R leg is messed up. Reconfirmed that he lives in an JUDE- a 1 floor building. Has his own room w a toilet inside. He shares bathing facilities wother residents in the house. He eats his meals and snacks in the dining room. He has NO stairs to negotiate. O:Ballet Professor Used: None needed Mental Status Mental Status: Alert;Cooperative Follows Directions: Follows 1 step direction (Except WBiing restrictions for L foot) Delirium Assessment - CAM Short (Confusion Assessment Method) Acute onset OR fluctuating course: No Inattention: No Disorganized Thinking: No Altered level of consciousness: No CAM result: Negative Restrictions/Precautions Weight Bearing Restrictions: Heel touch WB on L LE in post-op shoe. Precautions: (Up ad celia. Wound in groin/s. Bed/Tab Alarm. Fall. PIV B UE. Delirium. TMA R foot. Recently amputated L great toe.) Vital Signs 11/18/2023 0814 11/18/2023 1100 11/18/2023 1105 BP: 143/69 140/75 140/75 Patient Position for BP: Lying Down -- Lying Down Pulse: 56 69 69 SpO2: 94 % 93 % 95 % VS: -Mid-Tx: Sitting on EOB- O2 sats 97% on RA, HR 75, BP 176/80. -Mid-Tx: Standing, after having walked- O2 sats 99% on RA, HR 94, BP 159/80. -Reported dizziness of up to 9 to 10/10 when standing/walking. Transfer & Bed Mobility Roll Right: Modified independent Supine to/from Sit: Modified independent (R SL to Sit Mod I using bed rail. Sit R side of bed to Supine- Mod I.) Sit to/from Stand: Stand by assist (SBA/Mod I- From EOB w bed at regular height and from recliner wGeomat cushion over the width of the seat- Tends to lean to his L to stand up- Reports baseline problems w R LE- Has R TMA.) -Reminded patient several times during the treatment session that he needs to make sure he keeps his L toes off the ground when standing/walking. Gait Distance (m): 60 m (and 2 x 3m without AD) Device: None Assistance: Minimal assist (CGA of 1 to 2 people. Note: We were 2 of us present.) Gait Quality (General): Slowed;Unsteady (Enlarged IRINEO. Somewhat irregular.) Sitting Static Balance Level of Assistance: Independent (Sitting on EOB) TE: Sitting on EOB -10 Active L Ankle DF/PF Interdisciplinary Communication -MD: and CC- Paged about pt's performance w PT/OT and pti's symptomatic orthostatic hypotension. -RN: OK for PT. Updatred on pt's performance w PT/OT. -OT: Seen in co-tx. Fall Risk Assessment: None of the above Positioning: Supine w HOB up 15 degs w bed alarm on. Treatment rendered: Gait training;Transfer training;Bed mobility training Total treatment time: 30 minutes A: Patient is now s/p L great toe amputation on 11/17/2023. Has no pain from that surgery and shouldbe heel touch WB in post-op shoe. He wasn't very compliant w remaining heel touch WB. He tends to WB more on his L LE to stand up b/c of longstanding problems w his R LE. He was Mod I for rolling R, and going R SL to Sit using the bed rail. He needed SBA to go Sit/stand from elevated surfaces mostly to remind him to remain heel touch WB on L LE. He was very dizzy with all standing activities in part d/t orthostatic hypotension- MD was notified. He needed CGA/Min A to ambulate. Would be safest walking w a 2ww. Patient seems to have some underlying cognitive difficulties- Has h/o TBI... Recommend continued PT in a rehab facility at time of d/c to continue to optimise his physical functioning/independence/ endurance. P: Continue to see patient 3-4x/wk depending on census/prioritisation. Next Visit: Continue w bed mobility, transfer and gait training using 2ww. Continue to monitor BP and check for orthostatic BP. Continue to remind patient about need to remain heel touch WB on L LE. LEI MAKER Appropriate: Yes Kenrick Fisher PT 11/18/2023 Pager: [facility] PT Dept * Scar Leyva MD - 11/18/2023 2:29 PM CDT MEDICINE CONSULT FOLLOW-UP- STAFF Matt Low : 1980 Sex: male Patient Summary: Matt Low is a 43 y.o. male with PMH of T2DM, prior TMA or right foot, HTN, paranoid schizophrenia, situs inversus, tobacco use, obesity, admitted on 11/10/2023 as a transfer from OSH for emergent surgical debridement for demar's gangrene. Medicine was consulted by Dr. Churchill for: Diabetes management, antibiotic selection I spoke to primary team and offered recommendations. Primary outstanding issues are postoperative management from Podiatry, monitoring off antibiotics, ensured continued improvement in renal function, and BP/DM management. Nearing readiness for discharge from Medical perspective. ASSESSMENT: HTN - Significant elevated yesterday 11/16, prompting initiation of amlodipine and low-dose carvedilol as well as increased intensity of PRN hydralazine. No signs/sx of hypertensive emergency. Today 11/17, BP is significantly improved, with SBP close to normal range. Etiology of hypertension for the last two days is not entirely clear; patient notes feeling less pain and anxiety today 11/17 so that could be playing a role. Plan to continue amlodipine and monitor for now, with intent to resume ARB once serum Cr normalizes. Nonoliguric Acute Kidney Injury, improving, likely ATN - multifactorial given vanc/zosyn, contrast,infection. Repeat urinalysis unremarkable and prot/Cr elevated but non-nephrotic. Serum Cr 2.17 today 11/17, continuing to improve. Recommend daily BMP while hospitalized, with plan for outpatient BMPnext week to ensure continued improvement and consideration of restarting ARB. Perineal Necrotizing fasciitis s/p sharp excisional debridement 11/11/23 - vitals, WBC improving. Afebrile. Completed course of ceftriaxone and metronidazole. Appreciate ID service assistance - they saw the patient again today. Plan to monitor off abx and restart if fever develops. Left great toe gangrene POD #1 s/p L hallux amputation- Podiatry team was consulted and performed Lhallux amputation 11/16. Completed ceftriaxone and Flagyl will conclude tomorrow; intraoperative cultures were collected and tissue culture growing MRSA. I spoke to Infectious Disease team and no needto treat immediately since infected bone was completely amputated. We will continue to monitor off abx for now; restart if fever develops. Type 2 DM with neuropathy, retinopathy - sugars are above goal here (FPG goal <150). LEI MAKER lantus 30 units BID, lispro 10 units TID AC, metformin 500mg BID. A1c 6.8% on 07/27/23. Complications include h/o diabetes related infections. Hold LEI MAKER metformin while admitted. Continue statin. 11/12 got 25u lantus (<0.2/kg) and 35u aspart. Likely needs increase in insulin dosing but also use caution with impaired renal clearance / worsening renal function and this can contribute to hypoglycemia. Serum glucose levels are slightly improved today with increase in Lantus to 28 U; increasing today to LEI MAKER dose of 30 U Lantus daily. Paranoid schizophrenia - restarted LEI MAKER meds (escitalopram 20mg qhs, trazodone 50mg qhs, prazosin 1mg qhs). Given paliperidone (Invega) IM on 11/12/23 (due every 4 weeks for schizophrenia) Tobacco use - offer nicotine patches, gum, lozenges while inpatient H/o TBI Obesity RECOMMENDATIONS 11/15/23 Increased Lantus to 30 U qd Continuing amlodipine, carvedilol discontinued as patient noted some dizziness and BP now near goal. Resume patient's LEI MAKER losartan 50mg PO daily when Cr is closer to baseline (likely ~1.0) Strict I/O, monitor UOP. Avoid nephrotoxins (IV contrast, NSAIDs), renal dosing of meds Medicine will continue to follow. Please page Hospitalist Consult A on [employer] for any further issues or questions. SUBJECTIVE/Events of Past 24 Hours: Hospital Day: 8 Mr Low feels good today; more relaxed. Pain controlled. Hoping for discharge soon; he's curiousif his sister might be able to take him home tomorrow, or potentially to a facility (?[facility]?) for extra cares and assistance OBJECTIVE: Blood pressure 140/75, pulse 69, temperature 36.2 ??C (97.2 ??F), temperature source Oral, resp. rate 11, height 1.803 m (5' 10.98), weight (!) 140.5 kg (309 lb 11.9 oz), SpO2 95%. Physical Exam Constitutional: General: He is not in acute distress. HENT: Head: Normocephalic. Eyes: General: No scleral icterus. Cardiovascular: Rate and Rhythm: Normal rate and regular rhythm. Pulmonary: Effort: Pulmonary effort is normal. No respiratory distress. Abdominal: General: Bowel sounds are normal. Tenderness: There is no abdominal tenderness. There is no guarding. Skin: General: Skin is warm and dry. Neurological: Mental Status: He is alert. Mental status is at baseline. Wearing postoperative Podiatric shoe on L foot. Exam generally unchanged today 11/17. Labs reviewed Scar Leyva MD [facility] Medicine * Jabari Colby, RN - 11/18/2023 12:19 PM CDT Pt states he is sad about having left great toe amputation, denies any suicidal ideation. Otherwisept states he is in a good mood and looking forward to discharge to home. * Caridad Dorsey - 11/18/2023 8:38 AM CDT Continued Care and Services - Admitted Since 11/10/2023 Destination Service Provider Request Status Selected Services Address Phone Fax Patient Preferred [facility] [place], [facility] Facility Pending - Request Sent N/A [address] [address] [phone] -- Internal Comment last updated by Caridad Dorsey 11/19/2023 0745 LVM for admissions .Caridad Dorsey, 11/19/2023 7:44 AM Sent email to [place].Caridad Dorsey, 11/17/2023 2:24 PM [facility] Facility Pending - Request Sent N/A [address] [facility] [address] [phone] -- Internal Comment last updated by Caridad Dorsey 11/19/2023 0818 LVM for admissions.Caridad Dorsey, 11/19/2023 8:17 AM LVM for admissions.Caridad Dorsey, 11/18/2023 8:37 AM [facility] Declined N/A [address] [facility] [address] -- [facility] Declined No Contract with Patient's Insurance Carrier N/A [address] [place] [id number] [phone] -- [facility] Declined Current smoking, Acuity too high N/A [address] [place] [phone] -- Internal Comment last updated by Caridad Dorsey 11/18/2023 0831 LVM for admissions.Caridad Dorsey, 11/18/2023 8:31 AM [facility] Declined Bed not available N/A [address] [facility] [phone] -- Internal Comment last updated by Caridad Dorsey 11/18/2023 0834 No bd available until next week. Caridad Dorsey, 11/18/2023 8:34 AM [facility] Declined Bed not available N/A [address] [facility] [address] [phone] -- Home Medical Care No active coordination exists for this encounter. * Aretha Damon MD - 11/18/2023 8:26 AM CDT ID PROGRESS NOTE Matt Low 1980 Male [id number] ASSESSMENT: # Necrotizing fascitis/Demar's gangrene s/p debridement # Left hallux gangrene s/p amputation # Type II diabetes mellitus 43 y.o. male pmhx of T2DM with prior right toe [facility]put[facility] [place] [facility], s/p I&D x 2, currently on ceftriaxone and metronidazole. Surgical debridement is paramount and has been addressed. Was on antibiotic therapy from 11/09 until 11/16 for total of 7 days of treatment. Most recently on ceftriaxone and metronidazole. Now status post left hallux amputation on 11/16 with podiatry. Per operative note upon disarticulation metatarsal head noted to be clean, white, and hard without evidence of tracking infection. This should represent source control of lower extremity process. Demar's gangrene is typically treated for total course of 7 to 14 days pending clinical improvement. Given his downtrending white count and lack of fevers, it is reasonable to follow off antibiotics given his 7 days of treatment. RECOMMENDATIONS: - will follow off ceftriaxone and metronidazole -If fever (temperature greater than 100.4 F) would resume ceftriaxone and metronidazole as this would not constitute antibiotic failure but likely premature discontinuation - Despite MRSA/Staph lugdunensis on toe cultures, confirmed with podiatry that the margins were hard bone and appeared to be clear of infection so hold on additional MRSA coverage for now unless proximal margins are concerning for ongoing infection on finalized pathology -Check CBC with diff monitoring lab(s). ID2 will follow. Please page with questions. SUBJECTIVE/OVERNIGHT EVENTS: S/p hallux amputation 11/17/[address] Mullen-operative note available in Potential Seen this a.m. and was quite sleepy. Apparently had elevated blood pressures overnight with some bleeding of left foot after he bared weight on surgical site. Denies abdominal pain, worsening sensorychanges around his perineum, or difficulty with defecation. Not feeling hungry at the time of visit. Pt's girlfriend had several questions for the team today via telephone, answered. He is eager for discharge. ANTI-INFECTIVES: Current: - ceftriaxone (11/12-11/16) - metronidazole (11/12-11/17) Previous: - vancomycin (11/10 - 11/11) - pip-tazo (11/09 - 11/12) - clindamycin 11/09 - 11/11) - linezolid (11/09) EXAMINATION: BP 143/69 (Cuff Location: Left Arm) Pulse 56 Temp 36.1 ??C (97 ??F) (Oral) Resp 18 Ht 1.803m (5' 10.98) Wt (!) 140.5 kg (309 lb 11.9 oz) SpO2 94% BMI 43.22 kg/m?? Constitutional: Somnolent Pulmonary: chest symmetric, lungs clear bilaterally and no crackles, wheezes or rales Cardiovascular: Regular rate and rhythm, S1, S2, no murmurs/rubs/gallops GI/Abdomen: Soft, non-tender, non-distended, normoactive bowel sounds MSK: Left foot covered in boot, no obvious saturation of dressing : Posterior perineum grossly observed, no obvious granulation tissue noted with no pus or drainage observed RELEVANT DATA: Recent Labs 11/16/23 0845 11/17/23 1435 11/18/23 0902 NA 139 137 137 K 4.4 4.3 4.5 CHLORIDE 106 104 104 CO2 21* 21* 24 UN 35* 30* 27* CR 2.67* 2.27* 2.17* GLU 261* 252* 180* Recent Labs 11/16/23 0845 11/17/23 1435 11/18/23 0902 HGB 9.6* 9.6* 9.4* WBC 13.08* 11.70* 10.61* PLT 475* 466* 495* Microbiology: Perineal cultures 11/09: Actinomyces, Staph pettenkoferi, Staph epi No fungal, AFB, growth 11/09 Bcx - NG 11/16 hallux cultures: Prelim GPC, Cultures: MRSA x 2, Staph lugdunensis in 1 of 2 Imaging results: [facility]ed in [facility] Gulshan José MD, 11/18/2023 8:[address] Damon FACULTY NOTE I saw and evaluated Matt Low on today, 11/18/2023. I discussed with the resident/fellow/medicalstudent and agree with the findings and plan documented above. Any revisions by me are documented. Additional Medical Decision Information: need 2 of 3 categories to bill at that level Number and Complexity of Problems This patient has 1 stable, chronic illness (LOW) 1 stable, acute illness (LOW) 1 acute illness with systemic symptoms (MODERATE) Amount and/or Complexity of Data to be Reviewed and Analyzed Moderate (must meet requirements of at least 1 out of 3 categories) High (must meet requirements of at least 2 out of 3 categories) Category 1: Tests, documents, or independent historian(s), any combination of 3 of the following. [x] I have reviewed the result(s) of each unique test and noted WBC 10.61, from 11.70, plts 495, hgb 9.4, Cr 2.17, all micro/cultures- MRSA and Staph lugdunensis newly isolated on toe cultures [x] I have ordered additional testing per recommendations above. Category 2: Independent interpretation of tests Category 3: Discussion of management or test interpretation Risk of Complications and/or Morbidity or Mortality of Patient Management Drug therapy requiring intensive monitoring for toxicity (HIGH) Aretha Damon MD, 11/18/2023 1:51 PM * Afshan Sims DP - 11/18/2023 8:11 AM CDT Images from the original note were not included. Podiatric Surgery Inpatient Progress Note - PGY-3 Matt Low : 1980 Sex: male Patient Summary: Matt Low is a 43 y.o. male with PMH of T2DM, prior TMA or right foot, HTN, paranoid schizophrenia, situs inversus, tobacco use, obesity, admitted on 11/10/2023 as a transfer from OSH for emergent surgical debridement for demar's gangren ASSESSMENT: Incision dehiscence due to noncompliance, left --Went for a walk without protective shoe gear immediately after surgery --No acute signs of infection 1 day s/p Left hallux amputation (DOS 11/17/2023 Dr. Palomo) --Indication: gangrenous hallux, possible stable gas forming infection, right --Present on admission --Gas identified on outside CT 11/09 Daily Tobacco Use Possible small vessel disease --Present on admission --Distal tip of hallux gangrenous --AUS completed 11/16 with no additional workup indicated Controlled T2DM with peripheral neuropathy --A1C: 6.8% 07/2023 Right TMA --Present on admission, done at OSH --No wounds Paranoid Schizophrenia History of TBI --Patient is own MDM. Confirmed with patient and primary team RECOMMENDATIONS: 1. Dressing: Dressed bedside with steri strips, Betadine, 4 x 4 gauze, Kerlix, gabriella, stocking. Podiatry to manage dressings at this time. Okay for nursing to reinforce as needed. 2. Activity: Heel touch WB in surgical shoe. Surgical shoe present in room. Patient was walking on unit immediately after surgery without shoe AMA. 3. Antibiotics: ID consulted per primary team. Continue ceftriaxone and Flagyl. Clean and dirty soft tissue cultures taken in surgery 11/16. 4. Vascular: No additional workup indicated at this time. Appropriate bleeding in OR and bedside. AUS completed 11/16 with no evidence of inflow disease. 5. Imaging: No additional imaging needed at this time. Immediate postop x-rays ordered in PACU. 6. Surgery: No additional surgery planned from a podiatric standpoint during this stay 7. Follow-up: Patient is okay to discharge from our standpoint. Patient follows with Dr Hayden in [facility] and would prefer to follow up with him upon discharge. We are happy to schedule anappointment with patient if he wishes to follow up with our team. Please page director of recruitment and admissions resident with questions. Patient was discussed with director of recruitment and admissions staff, Interval History Patient was seen and evaluated at bedside. Doing well. Kept shoe on since reapplication yesterday. Denies any pain. Has no questions or concerns. Wants to follow up with Dr Hayden REVIEW OF SYSTEMS: ALL other ROS negative except for those noted in HPI. PHYSICAL EXAMINATIONS: Temp (24hrs), Av.3 ??C (97.3 ??F), Min:35.8 ??C (96.5 ??F), Max:36.6 ??C (97.9 ??F) General: No apparent distress, alert and oriented Vascular: Pulses: PT/DP pulses nonpalpable, bilateral Hair growth absent at the level of the digits Capillary filling time less than three seconds on left digits 2-5 Lower extremity/foot edema absent Neurological: Protective sensation deficit noted - bilaterally to light touch Strength and tone bilaterally lower extremity muscles rated at 5/5 in all quadrants in lower leg and foot Dermatologic: Skin well approximated with sutures intact. Central incision gapping with one suture popped No signs of acute infection present. Erythema and edema present consistent with post op course. No evidence of CRPS. Musculoskeletal: Right TMA No tenderness to palpation left foot Left hallux amputation REVIEW OF LABORATORY, PATHOLOGY, AND RADIOLOGY DATA: Lab results: Lab Results Component Value Date WBC 11.70 (H) 11/17/2023 RBC 3.37 (L) 11/17/2023 HGB 9.6 (L) 11/17/2023 HCT 29.6 (L) 11/17/2023 PLT 466 (H) 11/17/2023 Lab Results Component Value Date NA 137 11/17/2023 K 4.3 11/17/2023 CHLORIDE 104 11/17/2023 CO2 21 (L) 11/17/2023 GLU 252 (H) 11/17/2023 UN 30 (H) 11/17/2023 CR 2.27 (H) 11/17/2023 CA 8.2 (L) 11/17/2023 Lab Results Component Value Date/Time APTT 32.9 11/10/2023 1431 No results found for: HGBA1C Primary care physician: No primary care provider on file. Samina Singletary DPM, 11/18/2023 8:12 AM Podiatric Surgery Resident FACULTY NOTE TP note (GC): I discussed with the resident and agree with the resident???s findings and plan documented in the resident???s note. Any revisions by me are documented. Afshan Sims DPM, 11/18/2023 9:02 AM * Nicola Vasquez MD - 11/18/2023 7:37 AM CDT SURGERY PROGRESS NOTE--PGY1 Matt Low : 1980 Sex: male SIGNIFICANT EVENTS IN THE PAST 24 HRS: Pt walked on his surgical site with no boot. Began to bleed again. Podiatry consulted. Later had BPs in 220s. Given IV hydralazine. SUBJECTIVE: Pt reports doing well. States no pain, fever, and SOB. Pt notes still dizzy and lightheaded from last night. OBJECTIVE: BP 129/60 (Cuff Location: Left Arm) Pulse 66 Temp 36.4 ??C (97.5 ??F) (Axillary) Resp 23 Ht1.803 m (5' 10.98) Wt (!) 140.5 kg (309 lb 11.9 oz) SpO2 96% BMI 43.22 kg/m?? Body mass index is 43.22 kg/m??. Intake/Output Summary (Last 24 hours) at 11/18/2023 0737 Last data filed at 11/17/20231999 Gross per 24 hour Intake 640 ml Output 635 ml Net 5 ml Physical Examination: General: Patient laying in bed awake, not in acute distress. CV: Rate as noted, regular rhythm, Pulm: Unlabored Respirations. On Room Air. Abd: Abdomen soft, non-tender, non-distended. Labs / Imaging: BMP Lab Results Component Value Date/Time NA 137 11/17/2023 1435 K 4.3 11/17/2023 1435 CHLORIDE 104 11/17/2023 1435 CO2 21 (L) 11/17/2023 1435 GLU 252 (H) 11/17/2023 1435 UN 30 (H) 11/17/2023 1435 CR 2.27 (H) 11/17/2023 1435 CA 8.2 (L) 11/17/2023 1435 CMP Lab Results Component Value Date/Time NA 137 11/17/2023 1435 K 4.3 11/17/2023 1435 CHLORIDE 104 11/17/2023 1435 CO2 21 (L) 11/17/2023 1435 GLU 252 (H) 11/17/2023 1435 UN 30 (H) 11/17/2023 1435 CR 2.27 (H) 11/17/2023 1435 CA 8.2 (L) 11/17/2023 1435 MG 2.4 11/14/2023 0530 ALBUMIN 2.9 (L) 11/10/2023 1431 TPRO 7.1 11/10/2023 1431 ALP 104 11/10/2023 1431 ALT 9 11/10/2023 1431 AST 14 11/10/2023 1431 TBILI 0.3 11/10/2023 1431 Lab Results Component Value Date/Time WBC 11.70 (H) 11/17/2023 1435 RBC 3.37 (L) 11/17/2023 1435 HGB 9.6 (L) 11/17/2023 1435 HCT 29.6 (L) 11/17/2023 1435 PLT 466 (H) 11/17/2023 1435 MCV 87.8 11/17/2023 1435 MCH 28.5 11/17/2023 1435 MCHC 32.4 11/17/2023 1435 RDW 14.2 11/17/2023 1435 MPV 9.3 11/17/2023 1435 NEUTNO 7.44 (H) 11/17/2023 1435 LYMPHAB 1.96 11/17/2023 1435 MONOABSNO 1.45 (H) 11/17/2023 1435 EOSNUMB 0.27 11/17/2023 1435 BASO 0.06 11/17/2023 1435 Susceptibility data from last 90 days. Collected Specimen Info Organism 11/10/23 Tissue from Perineal Staphylococcus epidermidis Actinomyces species Staphylococcus pettenkoferi 11/10/23 Swab from Perineal Staphylococcus epidermidis Actinomyces species ASSESSMENT: 43 y.o. 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 S/p perineal debridement (11/09 and 11/10). Surgery team changed the dressing 11/13. 11/13 Cr raised to 3.21 from 3.04 and Bun increased from 37 to 40,concerned for JANEL. 11/14 Cr decreased 2.86 and BUN decreased to 38. HCV, HBV, HIV screeing was negative, proteinuria decreased. U/A was not active. Changed hydralazine to PO. Metronidazole changed fromIV to oral per ID consultation. Insulin lantus was increased from 25 to 28 per medicine. Podiatry amputated the first metatarsal of left toe. Nursing doing dressing changes. Episode of hypertension. Medicine following and recommends adding amlodipine and carvedilol. Okay from surgery perspective for discharge. Plan: - Daily AM CBC for now F/U Left great toe gangrene -OR for amputation with podiatry. - Dressing change daily and PRN by nursing Type 2 DM Diagnosed with Dmt2 in 2010. Home regimen: 30u glargine BID, lispro 10u TID AC metformin 500mg BID.Most recent a1c 6.8% on 07/27/23. Continue Glargine 25 units Q24H, Aspart TID AC and at bedtime While on PO: - consistent carb diet, medium - glucose checks QID TID AC and HS Discharge recommendations (please page medicine morning of DC to confirm no changes) - Continue home diabetes regimen: - 30u glargine BID - lispro 10u TID AC - metformin 500mg BID HTN -Continue with oral hydralazine BID 40mg, -prazosin 1mg at bedtime. -Start carvedilol 6.25mg BID -Start Amlodipine 10mg Daily Acute Kidney Injury Ordered Urinalysis, will repeat every 24-48 hours, and will monitor urine output closely. 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 Would give dose here if due and if available on formulary. Tobacco use - offer nicotine patches, gum, lozenges while inpatient - cessation counseling as able Neuro/Pain Control: Multimodal -Scheduled: Tylenol, Gabapentin, cyclobenzaprine, Lexapro, Trazodone -PRN: Hydromorphone Skin/Wounds: Dressing changed (11/17) DVT prophylaxis: SCDs, Lovenox 40 BID Weight Bearing: WBAT Activity: Ad celia/with assist Disposition: Home Nicola Vasquez MD, 11/18/2023 7:37 AM PGY-1 General Surgery Associated attestation - Eusebio Espinoza MD - 11/24/2023 1:17 PM CDT FACULTY WITH RESIDENT: I saw and evaluated the patient on the date of the resident's note. I discussed with the resident and agree with the resident's findings and plan documented in the resident's note. Any revisions by me are documented. Eusebio Espinoza MD, 11/24/2023 1:17 PM * Scar Leyva MD - 11/17/2023 3:38 PM CDT MEDICINE CONSULT FOLLOW-UP- STAFF Matt Low : 1980 Sex: male Patient Summary: Matt Low is a 43 y.o. male with PMH of T2DM, prior TMA or right foot, HTN, paranoid schizophrenia, situs inversus, tobacco use, obesity, admitted on 11/10/2023 as a transfer from OS for emergent surgical debridement for demar's gangrene. Medicine was consulted by Dr. Churchill for: Diabetes management, antibiotic selection I spoke to primary team and offered recommendations. Tomorrow 11/17, we will re- communicate about Medicine potentially assuming primary team responsibilities. No further surgical interventions plannedby their service. Primary outstanding issues are postoperative management from Podiatry, completionof antibiotic course, ensured continued improvement in renal function, and BP management. ASSESSMENT: HTN - above goal. ARB is being held. Also may be hypervolemic given renal dysfunction, though UOP is acceptable. Holding LEI MAKER losartan 50mg daily. Started amlodipine 10 mg and carvedilol 6.25 mg BID (ordered for you) and patient should ultimately resume ARB once renal function is improved. Patient believes his high blood pressure is partially from anxiety about his procedure, but with BP as high as SBP >180 on repeat checks I feel compelled to treat it aggressively. Increased dose of PRN hydralazine as well, and monitoring BP with these changes. No signs/sx of hypertensive emergency. Nonoliguric Acute Kidney Injury, improving, likely ATN - multifactorial given vanc/zosyn, contrast,infection. Repeat urinalysis unremarkable and prot/Cr elevated but non-nephrotic. Serum Cr 2.27 today 11/16, improved from 2.6 yesterday. Perineal Necrotizing fasciitis s/p sharp excisional debridement 11/11/23 - vitals, WBC improving. Afebrile. Completed course of ceftriaxone today and will conclude metronidazole tomorrow. Appreciate IDservice assistance. Left great toe gangrene POD #0 s/p L hallux amputation- Podiatry team was consulted and performed Lhallux amputation tomorrow 11/16. Completed ceftriaxone and Flagyl will conclude tomorrow; intraoperative cultures were collected and in process. Type 2 DM with neuropathy, retinopathy - sugars are above goal here (FPG goal <150). LEI MAKER lantus 30 units BID, lispro 10 units TID AC, metformin 500mg BID. A1c 6.8% on 07/27/23. Complications include h/o diabetes related infections. Hold LEI MAKER metformin while admitted. Continue statin. 11/12 got 25u lantus (<0.2/kg) and 35u aspart. Likely needs increase in insulin dosing but also use caution with impaired renal clearance / worsening renal function and this can contribute to hypoglycemia. Serum glucose levels are slightly improved today with increase in Lantus to 28 U; will need to continue monitoring and potentially further increase dose as renal function and diet improve. Paranoid schizophrenia - restarted LEI MAKER meds (escitalopram 20mg qhs, trazodone 50mg qhs, prazosin 1mg qhs). Given paliperidone (Invega) IM on 11/12/23 (due every 4 weeks for schizophrenia) Tobacco use - offer nicotine patches, gum, lozenges while inpatient H/o TBI Obesity RECOMMENDATIONS 11/15/23 Continue Lantus 28 U daily for now; may need to continue titration as diet and renal function improve Began carvedilol and amlodipine as above Resume patient's LEI MAKER losartan 50mg PO daily when Cr is closer to baseline (likely ~1.0) Switching to IV PRN hydralazine for more aggressive BP control Strict I/O, monitor UOP. Avoid nephrotoxins (IV contrast, NSAIDs), renal dosing of meds Medicine will continue to follow. Please page Hospitalist Consult A on [employer] for any further issues or questions. SUBJECTIVE/Events of Past 24 Hours: Hospital Day: 7 Mr Low feels good today; seen postoperatively. Denies any significant pain, SOB. Curious how long he needs to wear his podiatric shoe. Amenable to plan. OBJECTIVE: Blood pressure (!) 203/92, pulse 90, temperature 36.4 ??C (97.5 ??F), temperature source Oral, resp. rate (!) 37, height 1.803 m (5' 10.98), weight (!) 140.5 kg (309 lb 11.9 oz), SpO2 (!) 87%. Physical Exam Constitutional: General: He is not in acute distress. HENT: Head: Normocephalic. Eyes: General: No scleral icterus. Cardiovascular: Rate and Rhythm: Normal rate and regular rhythm. Pulmonary: Effort: Pulmonary effort is normal. No respiratory distress. Abdominal: General: Bowel sounds are normal. Tenderness: There is no abdominal tenderness. There is no guarding. Skin: General: Skin is warm and dry. Neurological: Mental Status: He is alert. Mental status is at baseline. Wearing postoperative Podiatric shoe on L foot. Labs reviewed Scar Leyva MD Hospital Medicine * Amaury Lazo Brian - 11/17/2023 2:54 PM CDT Pharmacy Enoxaparin Prophylaxis Note Matt Low : 1980 Sex: male Plan: Enoxaparin Xa level drawn today at 11:47, last enoxaparin dose was given 11/15 820. Current level does not represent drug exposure. Plan to dc enoxaparin and start subcutaneous heparin given Janel Current regimen: Enoxaparin Discontinued Estimated CrCl: 50 ml/min Weight: (!) 140.5 kg (309 lb 11.9 oz) (11/10/23 1433) Body mass index is 43.22 kg/m??. Patient???s renal function appears to be worsening. Lab Results Component Value Date CR 2.67 (H) 11/16/2023 CR 2.83 (H) 11/15/2023 CR 2.86 (H) 11/15/2023 Lab Results Component Value Date ANTIXALMW <0.04 11/17/2023 Amaury Lazo 11/17/2023 14:54 Pager: [employer] * Shannan Caruso OTR/Brian - 11/17/2023 1:00 PM CDT Pt in the OR this morning, now s/p amputation, toe left. Will hold OT for today, and will check back tomorrow. Shannan Partida OTR/Brian Pager: [phone] * Mabel Mathews RN - 11/17/2023 11:27 AM CDT TRANSFER IN NOTE D: Patient transferred in to STNU 2 from PACU at 1100. Patient condition on arrival: Stable, a/o X4, VSS, on RA, . Patient Belonging 11/10/2023 1440 Reason for Inventory: ED/APS Admission Patient or family informed of Patient Valuables and Belongings Policy (#[id number]): Due to patient condition, [facility] staff will inventory and secure patient valuables Items Needing Securement: Cell phone Cell Phone Secured?: Yes Cell Phone Visually Damaged: Yes Patient Belongings: Clothing Clothing Comments: shirt, 1 shoe, 1 sock, A: Settled patient in to new room: oriented to room, VS done, and assessment done. Pt had c/o of back pain of 6/10. CMS and neuro's intact, Pt has numbness and tingling in LLE, amputatuin site dry and intact and covered in gauze and walking boot Property sheet checked in by: RN. Orders already updated/appropriate for new station.. R: Continue with POC P: Commence with cares per Care Plan and orders. Continue with POC * Gracia Kumar RN - 11/17/2023 10:35 AM CDT 11/17/231033 Rapid Rounds Attendance Physician;Charge nurse;grain commodity manager;workers' compensation commissioner;Bedside nurse Expected Discharge Disposition SNF (TCU for wound care) Today we still await: Procedure (Comment) (toe amputation today) Case Management Discharge Milestones Documentation CM Assessment Completed? Yes Patient/Family agree w/DC plan? Yes Transportation Plan WC/Taxi/Stretcher Prior Auth/Pre-Admit Screen (!) Not completed 11/17/231033 Rapid Rounds Attendance Physician;Charge nurse;grain commodity manager;workers' compensation commissioner;Bedside nurse Expected Discharge Disposition SNF (TCU for wound care) Today we still await: Procedure (Comment) (toe amputation today) Case Management Discharge Milestones Documentation CM Assessment Completed? Yes Patient/Family agree w/DC plan? Yes Transportation Plan WC/Taxi/Stretcher Prior Auth/Pre-Admit Screen (!) Not completed Pt will DC to TCU, as his fpc cannot do the daily dressing changes to his pannus. Referrals are out * Che Palomo DPM - 11/17/2023 10:19 AM CDT Images from the original note were not included. Podiatric Surgery Inpatient progress note 11/17/2023 Matt Low : 1980 Sex: male Patient Summary: Matt Low is a 43 y.o. male with PMH of T2DM, prior TMA or right foot, HTN, paranoid schizophrenia, situs inversus, tobacco use, obesity, admitted on 11/10/2023 as a transfer from OSH for emergent surgical debridement for demar's gangrene. ASSESSMENT: Left hallux amputation DOS 11/17/2023 Dr. Palomo Indication gangrenous hallux, right Possible stable gas forming infection, right hallux --Present on admission --Gas identified on outside CT 11/09 Daily Tobacco Use Possible PAD --AUS ordered, pending, dressing is not over area needed to be evaluated ultrasound will need to remove the stockinette but can leave dressing intact to perform the ultrasound Controlled T2DM with peripheral neuropathy --A1C: 6.8% 07/2023 Right TMA --Present on admission, done at OSH --No wounds Paranoid Schizophrenia History of TBI --Patient is own MDM. Confirmed with patient and primary team RECOMMENDATIONS: 1. Dressing: Dressed applied in OR bedside with Betadine, Adaptic 4 x 4 gauze, Kerlix, stocking. Podiatry to manage dressings at this time. Okay for nursing to reinforce as needed 2. Activity: Weightbearing as tolerated in surgical shoe. Surgical shoe present in room 3. Antibiotics: Continue ceftriaxone and Flagyl. Clean and dirty soft tissue cultures taken in surgery today. 4. Vascular: Ordered left lower extremity arterial ultrasound given gangrenous changes to the left hallux. If abnormal would recommend consult to interventional radiology. 5. Imaging: Immediate postop x-rays ordered in PACU 6. Surgery: No additional surgery planned from a podiatric standpoint during this stay 7. Follow-up: Our team will continue to follow, we will change dressing postop day 1 and then from a podiatric standpoint he is okay to discharge. Patient follows with Dr Hayden in [facility] CHIEF COMPLAINT: Immediate postop HISTORY OF PRESENT ILLNESS: Patient resting in PACU comfortably, no complaints at this time dressing is clean dry and intact PAST MEDICAL HISTORY: Patient Active Problem List Diagnosis Date Noted At risk for sexually transmitted infection due to unprotected sex 11/12/2023 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[facility]) 11/10/2023 Hyperglycemia 11/10/2023 No past medical history on file. Past Surgical History: Procedure Laterality Date WOUND IRRIGATION AND DEBRIDEMENT Unknown 11/10/2023 Procedure: Excisional debridement, PERINEAL NEC FASC; Laterality: Unknown; Surgeon: Zac Churchill MD; Service: Burn WOUND IRRIGATION AND DEBRIDEMENT N/A 11/11/2023 Procedure: IRRIGATION AND DEBRIDEMENT, PERINEAL WOUND; Laterality: N/A; Surgeon: Donovan Sloan MD; Service: General Surgery Allergies and drug reactions: No Known Drug Allergies PHYSICAL EXAMINATIONS: Temp (24hrs), Av.6 ??C (97.8 ??F), Min:36.3 ??C (97.3 ??F), Max:36.9 ??C (98.4 ??F) General: No apparent distress, alert and oriented Vascular: Pulses: PT/DP pulses nonpalpable, bilateral Hair growth absent at the level of the digits Capillary filling time less than three seconds on left digits 2-5 Lower extremity/foot edema absent Neurological: Protective sensation deficit noted - bilaterally to light touch Strength and tone bilaterally lower extremity muscles rated at 5/5 in all quadrants in lower leg and foot Dermatologic: Postop dressing clean dry and intact without strikethrough. Musculoskeletal: Right TMA No tenderness to palpation left foot Left hallux amputation REVIEW OF LABORATORY, PATHOLOGY, AND RADIOLOGY DATA: Lab results: Lab Results Component Value Date WBC 13.08 (H) 11/16/2023 RBC 3.38 (L) 11/16/2023 HGB 9.6 (L) 11/16/2023 HCT 28.9 (L) 11/16/2023 PLT 475 (H) 11/16/2023 Lab Results Component Value Date NA 139 11/16/2023 K 4.4 11/16/2023 CHLORIDE 106 11/16/2023 CO2 21 (L) 11/16/2023 GLU 261 (H) 11/16/2023 UN 35 (H) 11/16/2023 CR 2.67 (H) 11/16/2023 CA 8.3 (L) 11/16/2023 Lab Results Component Value Date/Time APTT 32.9 11/10/2023 1431 No results found for: HGBA1C Primary care physician: No primary care provider on file. Che Palomo DPM, 11/17/2023 10:20 AM * Nicola Vasquez MD - 11/17/2023 9:19 AM CDT SURGERY PROGRESS NOTE--PGY1 Matt Morelia Low : 1980 Sex: male SIGNIFICANT EVENTS IN THE PAST 24 HRS: MARLEN SHELL since midnight for toe amputation at 0800. SUBJECTIVE: Pt reports doing well. States no pain, fever, and SOB. Pt request nicotine gum. OBJECTIVE: BP (!) 189/93 Pulse 85 Temp 36.6 ??C (97.9 ??F) (Temporal) Resp 16 Ht 1.803 m (5' 10.98) Wt (!) 140.5 kg (309 lb 11.9 oz) SpO2 90% BMI 43.22 kg/m?? Body mass index is 43.22 kg/m??. Intake/Output Summary (Last 24 hours) at 11/17/2023922 Last data filed at 11/16/2023 1600 Gross per 24 hour Intake -- Output 125 ml Net -125 ml Physical Examination: General: Patient laying in bed awake, not in acute distress. CV: Rate as noted, regular rhythm, Pulm: Unlabored Respirations. On Room Air. Abd: Abdomen soft, non-tender, non-distended. Labs / Imaging: BMP Lab Results Component Value Date/Time NA 139 11/16/2023 0845 K 4.4 11/16/2023 0845 CHLORIDE 106 11/16/2023 0845 CO2 21 (L) 11/16/2023 0845 GLU 261 (H) 11/16/2023 0845 UN 35 (H) 11/16/2023 0845 CR 2.67 (H) 11/16/2023 0845 CA 8.3 (L) 11/16/2023 0845 CMP Lab Results Component Value Date/Time NA 139 11/16/2023 0845 K 4.4 11/16/2023 0845 CHLORIDE 106 11/16/2023 0845 CO2 21 (L) 11/16/2023 0845 GLU 261 (H) 11/16/2023 0845 UN 35 (H) 11/16/2023 0845 CR 2.67 (H) 11/16/2023 0845 CA 8.3 (L) 11/16/2023 0845 MG 2.4 11/14/2023 0530 ALBUMIN 2.9 (L) 11/10/2023 1431 TPRO 7.1 11/10/2023 1431 ALP 104 11/10/2023 1431 ALT 9 11/10/2023 1431 AST 14 11/10/2023 1431 TBILI 0.3 11/10/2023 1431 Lab Results Component Value Date/Time WBC 13.08 (H) 11/16/2023 0845 RBC 3.38 (L) 11/16/2023 0845 HGB 9.6 (L) 11/16/2023 0845 HCT 28.9 (L) 11/16/2023 0845 PLT 475 (H) 11/16/2023 0845 MCV 85.5 11/16/2023 0845 MCH 28.4 11/16/2023 0845 MCHC 33.2 11/16/2023 0845 RDW 13.4 11/16/2023 0845 MPV 9.5 11/16/2023 0845 NEUTNO 13.41 (H) 11/11/2023 0536 LYMPHAB 2.96 11/11/2023 0536 MONOABSNO 0.87 11/11/2023 0536 EOSNUMB 0.00 11/10/2023 1431 BASO 0.17 11/11/2023 0536 Susceptibility data from last 90 days. Collected Specimen Info Organism 11/10/23 Tissue from Perineal Staphylococcus epidermidis Actinomyces species Staphylococcus pettenkoferi 11/10/23 Swab from Perineal Staphylococcus epidermidis Actinomyces species ASSESSMENT: 43 y.o. 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 S/p perineal debridement (11/09 and 11/10). Surgery team changed the dressing 11/13. 11/13 Cr raised to 3.21 from 3.04 and Bun increased from 37 to 40,concerned for JANEL. 11/14 Cr decreased 2.86 and BUN decreased to 38. HCV, HBV, HIV screeing was negative, proteinuria decreased. U/A was not active. Changed hydralazine to PO. Metronidazole changed fromIV to oral per ID consultation. Insulin lantus was increased from 25 to 28 per medicine. Dressing was changed 11/16. RTOR with Podiatry for toe amputation. Plan: - Daily AM CBC for now F/U Left great toe gangrene -OR for amputation with podiatry. - Dressing change daily and PRN by nursing Type 2 DM Diagnosed with Dmt2 in 2010. Home regimen: 30u glargine BID, lispro 10u TID AC metformin 500mg BID.Most recent a1c 6.8% on 07/27/23. Continue Glargine 25 units Q24H, Aspart TID AC and at bedtime While on PO: - consistent carb diet, medium - glucose checks QID TID AC and HS Discharge recommendations (please page medicine morning of DC to confirm no changes) - Continue home diabetes regimen: - 30u glargine BID - lispro 10u TID AC - metformin 500mg BID HTN Continue with oral hydralazine BID 40mg, prazosin 1mg at bedtime. Acute Kidney Injury Ordered Urinalysis, will repeat every 24-48 hours, and will monitor urine output closely. 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 Would give dose here if due and if available on formulary. Tobacco use - offer nicotine patches, gum, lozenges while inpatient - cessation counseling as able Neuro/Pain Control: Multimodal -Scheduled: Tylenol, Gabapentin, cyclobenzaprine, Lexapro, Trazodone -PRN: Hydromorphone Skin/Wounds: Dressing changed (11/16) DVT prophylaxis: SCDs, Lovenox 40 BID Weight Bearing: WBAT Activity: Ad celia/with assist Disposition: Nicola De Los Santos MD, 11/17/2023 9:19 AM PGY-1 General Surgery * Phillip Kenricksharon Taylor, PT - 11/16/2023 3:25 PM CDT Physical Therapy I was going to try doing PT w patient at 3:20 PM, however, the NA was in with patient and taking his VS and we noticed that his BP was very high. NA had taken the BP once on his R UE w BP 206/99. NA took BP a 2nd time on his R UE and rechecked the positioning of the BP cuff- VS were BP 205/91, O2 sats 95% on RA, HR 86. I asked the NA to take the BP on pt's L UE to see if his BP reading might be better- BP on L UE was 185/86, O2 sats 94% on RA, HR 85. NA notified RN about pt's elevated BP. Given patient's elevated BP, I deferred from doing any PT today. RN said that patient had already had 1 dose of PRN oral hyrdralazine and 1 dose of PRN IV hydralazine. Patient will undergo L great toe amputation tomorrow. Next PT session will be on 11/18/2023s a result. In discussion w pt's RN, it sounds like patient will need to go to a TCU at time of d/c for continued wound cares b/c his [facility] does not do wound cares. Kenrick Fisher, PT License #[id number] PT Tel #: [phone] On [employer] * Nico Hogue MD - 11/16/2023 9:49 AM CDT SURGERY PROGRESS NOTE--PGY1 Matt Keyzena : 1980 Sex: male SIGNIFICANT EVENTS IN THE PAST 24 HRS: Cr decreased from 2.86 to 2.67. SUBJECTIVE: Patient endorses minimal to no pain over surgical site during dressing change, he mentions no abdominal pain, no shortness of breath, and no fever. Patient passed soft stool yesterday. OBJECTIVE: BP (!) 195/82 (Cuff Location: Right Arm) Pulse 93 Temp 36.7 ??C (98 ??F) (Oral) Resp 20 Ht 1.803 m (5' 10.98) Wt (!) 140.5 kg (309 lb 11.9 oz) SpO2 91% BMI 43.22 kg/m?? Body mass index is 43.22 kg/m??. Intake/Output Summary (Last 24 hours) at 11/16/2023 0949 Last data filed at 11/16/2023 0900 Gross per 24 hour Intake 2520 ml Output 2654 ml Net -134 ml Physical Examination: General: Patient laying in bed awake, not in acute distress. CV: Rate as noted, regular rhythm, Pulm: Unlabored Respirations. On Room Air. Abd: Abdomen soft, non-tender, non-distended. Msk: Full range of motion present in all four extremities. Skin: Warm, dry, intact. Neuro: Alert, oriented x 3. No gross focal deficits Catheter in place theres no signs of blockage, erythema, or drainage. Labs / Imaging: BMP Lab Results Component Value Date/Time NA 139 11/16/2023 0845 K 4.4 11/16/2023 0845 CHLORIDE 106 11/16/2023 0845 CO2 21 (L) 11/16/2023 0845 GLU 261 (H) 11/16/2023 0845 UN 35 (H) 11/16/2023 0845 CR 2.67 (H) 11/16/2023 0845 CA 8.3 (L) 11/16/2023 0845 CMP Lab Results Component Value Date/Time NA 139 11/16/2023 0845 K 4.4 11/16/2023 0845 CHLORIDE 106 11/16/2023 0845 CO2 21 (L) 11/16/2023 0845 GLU 261 (H) 11/16/2023 0845 UN 35 (H) 11/16/2023 0845 CR 2.67 (H) 11/16/2023 0845 CA 8.3 (L) 11/16/2023 0845 MG 2.4 11/14/2023 0530 ALBUMIN 2.9 (L) 11/10/2023 1431 TPRO 7.1 11/10/2023 1431 ALP 104 11/10/2023 1431 ALT 9 11/10/2023 1431 AST 14 11/10/2023 1431 TBILI 0.3 11/10/2023 1431 Lab Results Component Value Date/Time WBC 13.08 (H) 11/16/2023 0845 RBC 3.38 (L) 11/16/2023 0845 HGB 9.6 (L) 11/16/2023 0845 HCT 28.9 (L) 11/16/2023 0845 PLT 475 (H) 11/16/2023 0845 MCV 85.5 11/16/2023 0845 MCH 28.4 11/16/2023 0845 MCHC 33.2 11/16/2023 0845 RDW 13.4 11/16/2023 0845 MPV 9.5 11/16/2023 0845 NEUTNO 13.41 (H) 11/11/2023 0536 LYMPHAB 2.96 11/11/2023 0536 MONOABSNO 0.87 11/11/2023 0536 EOSNUMB 0.00 11/10/2023 1431 BASO 0.17 11/11/2023 0536 Susceptibility data from last 90 days. Collected Specimen Info Organism 11/10/23 Tissue from Perineal Staphylococcus epidermidis Actinomyces species Staphylococcus petjacquelynkoferi 11/10/23 Swab from Perineal Staphylococcus epidermidis Actinomyces species Medicine consult (11/14): Resume patient's LEI MAKER losartan 50mg PO daily when Cr is closer to baseline (likely ~1.0) Increase lantus to 28 units q24h Recommend hydralazine 10mg PO q6h prn for SBP >180 Strict I/O, monitor UOP. Avoid nephrotoxins (IV contrast, NSAIDs), renal dosing of meds Medicine consult (11/13): Antibiotics per ID specialists Do not resume GABRIELLA / ARB at this time until renal function is improving Recommend hydralazine 10mg PO q6h prn for SBP >180 Strict I/O, monitor UOP. Avoid nephrotoxins (IV contrast, NSAIDs), renal dosing of meds Likely will need increased lantus dosing, monitor for today and hold off given uptrending Cr. ASSESSMENT: 43 y.o. 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 S/p perineal debridement (11/09 and 11/10). Surgery team changed the dressing 11/13. 11/13 Cr raised to 3.21 from 3.04 and Bun increased from 37 to 40,concerned for JANEL. 11/14 Cr decreased 2.86 and BUN decreased to 38. HCV, HBV, HIV screeing was negative, proteinuria decreased. U/A was not active. Changed hydralazine to PO. Metronidazole changed fromIV to oral per ID consultation. Insulin lantus was increased from 25 to 28 per medicine. Dressing was changed 11/15. Plan: - daily AM CBC for now F/U Left great toe gangrene Continue with oral metronidazole/IV ceftriaxone and monitor. - Weaning off from the oxygen - Dressing change daily and PRN by nursing Type 2 DM Diagnosed with Dmt2 in 2010. Home regimen: 30u glargine BID, lispro 10u TID AC metformin 500mg BID.Most recent a1c 6.8% on 07/27/23. Continue Glargine 25 units Q24H, Aspart TID AC and at bedtime While on PO: - consistent carb diet, medium - glucose checks QID TID AC and HS Discharge recommendations (please page medicine morning of DC to confirm no changes) - resume home diabetes regimen: - 30u glargine BID - lispro 10u TID AC - metformin 500mg BID HTN Continue with oral hydralazine BID 40mg, prazosin 1mg at bedtime. Acute Kidney Injury Ordered Urinalysis, will repeat every 24-48 hours, and will monitor urine output closely. 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 Would give dose here if due and if available on formulary. Tobacco use - offer nicotine patches, gum, lozenges while inpatient - cessation counseling as able Neuro/Pain Control: Multimodal -Scheduled: Tylenol, Gabapentin, cyclobenzaprine, Lexapro, Trazodone -PRN: Hydromorphone Skin/Wounds: Dressing changed (11/13) DVT prophylaxis: SCDs, Lovenox 40 BID (11/11) Weight Bearing: WBAT Activity: Ad celia/with assist Disposition: Nico Murray MD, 11/16/2023 9:49 AM PGY-1 General Surgery * Scar Leyva MD - 11/16/2023 8:59 AM CDT MEDICINE CONSULT FOLLOW-UP- STAFF Matt Low : 1980 Sex: male Patient Summary: Matt Low is a 43 y.o. male with PMH of T2DM, prior TMA or right foot, HTN, paranoid schizophrenia, situs inversus, tobacco use, obesity, admitted on 11/10/2023 as a transfer from OSH for emergent surgical debridement for demar's gangrene. Medicine was consulted by Dr. Churchill for: Diabetes management, antibiotic selection I spoke to primary team and offered recommendations. Tomorrow 11/16, we will re- communicate about Medicine potentially assuming primary team responsibilities. No further surgical interventions plannedby their service, though Podiatry team is intending to perform L hallux amputation. ASSESSMENT: Nonoliguric Acute Kidney Injury, improving, likely ATN - multifactorial given vanc/zosyn, contrast,infection. Repeat urinalysis unremarkable and prot/Cr elevated but non-nephrotic. Serum Cr 2.67 today 11/15, slightly improved from 2.83 yesterday. Perineal Necrotizing fasciitis s/p sharp excisional debridement 11/11/23 - vitals, WBC improving. Afebrile. Left great toe gangrene - Podiatry team was consulted and plans to perform L hallux amputation tomorrow 11/16. Continuing ceftriaxone and Flagyl, with plan to obtain intraoperative cultures tomorrow. Type 2 DM with neuropathy, retinopathy - sugars are above goal here (FPG goal <150). LEI MAKER lantus 30 units BID, lispro 10 units TID AC, metformin 500mg BID. A1c 6.8% on 07/27/23. Complications include h/o diabetes related infections. Hold LEI MAKER metformin while admitted. Continue statin. 11/12 got 25u lantus (<0.2/kg) and 35u aspart. Likely needs increase in insulin dosing but also use caution with impaired renal clearance / worsening renal function and this can contribute to hypoglycemia. Serum glucose levels are slightly improved today with increase in Lantus to 28 U; will need to continue monitoring and potentially further increase dose as renal function and diet improve. HTN - above goal overnight. ARB is being held. Also may be hypervolemic given renal dysfunction, though UOP is acceptable. Holding LEI MAKER losartan 50mg daily. Agree with prn hydralazine but would changeto PO. Could start new agent (such as amlodipine) but patient should ultimately resume ARB once renal function is improved Paranoid schizophrenia - restarted LEI MAKER meds (escitalopram 20mg qhs, trazodone 50mg qhs, prazosin 1mg qhs). Given paliperidone (Invega) IM on 11/12/23 (due every 4 weeks for schizophrenia) Tobacco use - offer nicotine patches, gum, lozenges while inpatient H/o TBI Obesity RECOMMENDATIONS 11/15/23 Continue Lantus 28 U daily for now; may need to continue titration as diet and Resume patient's LEI MAKER losartan 50mg PO daily when Cr is closer to baseline (likely ~1.0) Recommend hydralazine 25 mg PO q6h prn for SBP >180 (dose changed for you) Will continue to review BP over next day; low threshold to add amlodipine 10 mg daily tomorrow if elevated BP persists Strict I/O, monitor UOP. Avoid nephrotoxins (IV contrast, NSAIDs), renal dosing of meds Medicine will continue to follow. Please page Hospitalist Consult A on [employer] for any further issues or questions. SUBJECTIVE/Events of Past 24 Hours: Hospital Day: 6 Mr Low feels better today. He denies any symptoms today. Specifically, no fever/chills, GI sx, chest pain, dyspnea. Making good urine without symptoms. Amenable to plan. OBJECTIVE: Blood pressure (!) 195/82, pulse 93, temperature 36.7 ??C (98 ??F), temperature source Oral, resp. rate 20, height 1.803 m (5' 10.98), weight (!) 140.5 kg (309 lb 11.9 oz), SpO2 91%. Physical Exam Constitutional: General: He is not in acute distress. HENT: Head: Normocephalic. Eyes: General: No scleral icterus. Cardiovascular: Rate and Rhythm: Normal rate and regular rhythm. Pulmonary: Effort: Pulmonary effort is normal. No respiratory distress. Abdominal: General: Bowel sounds are normal. Tenderness: There is no abdominal tenderness. There is no guarding. Skin: General: Skin is warm and dry. Neurological: Mental Status: He is alert. Mental status is at baseline. Labs reviewed Scar Leyva MD [facility] Medicine * Chayo Townsend, OTR/L - 11/15/2023 2:00 PM CDT Occupational Therapy Progress Note 11/15/2023 OT Discharge Recommendations Discharge Recommendations: Post-acute placement recommended (versus back to [facility] with recommended assist- unclear if he could receive additional help) Level/type of placement (OT): Sub-Acute Rehab facility Barriers to discharge to home/community: Caregiver availability not yet confirmed;Insufficient activity tolerance;Poor insight / safety judgement Supervision / Assistance Recommended for home DC: Yes Physical assistance recommended for (OT): Lower body dressing;Toileting;Bathing;Wound Cares;IADL's Post Discharge Follow-up: OT at post-acute placement (vs home OT) Equipment Recommended: Equipment needs to be determined at next level of care OT In-patient follow-up / recommended referrals: Continue skilled OT services to achieve the goals on the plan of care / maximize safety and independence with ADL's / IADL's: - Recommended Frequency: 3x / week - Anticipated Duration of OT services: throughout hospital stay PM&R Consult Recommended: Precautions/Restrictions: Activity Level: Up Ad Celia (11/13/23 1100) General Precautions: Falls Risk (11/13/23 1100) SUBJECTIVE: I'm feeling better. Pain Pain Rating With Activity (Numeric): (does not rate) Location: L foot OBJECTIVE: Activities of Daily Living Grooming: Supervision/Stand by assist Grooming Comments: standing at sink to wash hands Toileting: Minimal assist (75% patient effort) Toileting Comments: assist with hygiene and management of dressings Lower Body Dressing: Moderate assist (50% patient effort) Lower Body Dressing Comments: to don shorts, may benefit from AE for future use Functional Mobility Supine to/from Sit: Supervision/Stand by assist Sit to/from Stand : Supervision/Stand by assist Sit to/from Stand - Method: From standard seat height;w/ Assistive device Toilet Transfer: Supervision/Stand by assist Toilet Transfer- Method: Grab bar (heavy use of grab bar) Bed to Bathroom: Supervision/Stand by assist Bed to Bathroom- Method: Front wheeled walker Functional Mobility in Room- Task Done: brief walk in hallway- 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 No. Therapeutic Exercise/Activity Patient / Caregiver Training: Interdisciplinary Communication: RN: ok to see, assisting with management of dressing ASSESSMENT: Pt alert and oriented this date- much different presentation than on eval. Pt still intermittently confused; baseline TBI. Pt unable to provide clear picture of assistance available at [facility]- however, per chart review only receives assistance with IADLs. This date, pt with improved functional mobility. Completes in room mobility with walker and SBA- in hallway environment requires increased assistance with management of walker (does not use at baseline). Pt also requiring assistance with hygiene cares for toileting and increased assistance with LB dressing. Currently recommend post acute placement if pt is unable to receive additional help with ADLs listed above. Will continue to u pdate d/c recs as appropriate pending pt's progress. This patient will continue to benefit from skilled OT services for ADL retraining, activity tolerance, functional mobility, and functional cognition to maximize independence and safety with ADLs. PLAN: Continue skilled OT services to achieve the goals on the plan of care: Plan For Next OT Session: --ADLs: LB dressing compensatory strategies, Toileting strategies, and Grooming strategies --Functional Mobility/Transfers: Toilet/commode transfer technique and Walker safety Total treatment time: 28 minutes OT interventions and time spent on each: Self care/Home mgmt/ADL: 28 minutes SADE Alvarado Pager: Lisa OT Department Problem: Loss of [place] With ADLs, Risk for Goal: Will complete lower body dressing Description: Patient will complete lower body dressing with Modified [place] (6). 11/15/2023 1400 by Chayo Townsend OTR/Brian Outcome: In progress 11/15/2023 1357 by Chayo Townsend OTR/Brian Outcome: In progress Goal: Will toilet self Description: Patient will toilet self with Modified [place] (6). 11/15/2023 1400 by Chayo Townsend OTR/Brian Outcome: In progress 11/15/2023 1357 by Chayo Townsend OTR/Brian Outcome: In progress * Kenrick Fisher Chi, PT - 11/15/2023 11:23 AM CDT Images from the original note were not included. Problem: Decreased Transfer Skills Goal: Patient will transfer sit to/from stand Description: Patient will transfer sit to/from stand with (6) Modified [place] in order to mobilize in home by 11/28/23. Outcome: In progress Problem: Decreased Ambulatory Skills Goal: Improve gait Description: Ambulate 100 meters using No assistive devices with (6) Modified [place] in orderto mobilize in home and community by 11/28/23. Outcome: In progress Problem: Decreased Functional Motor Skills - PT Goal: Patient demonstrates improved balance Description: Pt will be able to demonstrate 40/56 or greater on [place] Balance test in order to reduce risk of falls at home by 11/28/23. Outcome: In progress Problem: Decreased Transfer Skills Goal: Patient will transfer supine to/from sit Description: Patient will transfer supine to/from sit with (6) Modified [place] in order to mobilize in/out of bed by 11/28/23. Outcome: Met Physical Therapy Progress Note PT Discharge Recommendations Discharge Recommendations: Safety risk for discharge home today. Barriers to discharge to home/community: Insufficient activity tolerance;Pain;Caregiver availability not yet confirmed. Would be good if someone from the treatment team calls his [facility] to see how much help he can get and if he needs to be able to do stairs. If discharging to home, would need: Supervision when mobilizing;Assist with community access and mobility Post discharge follow-up: Home PT recommended to address * (for home safety evaluation, continued transfer, gait training +/- stair training) Equipment Status: Equipment needs being determined PT Equipment Recommended: Front wheeled walker (Issued gait belt) PM&R Recommended: * (No) S: Pain Pain Rating With Activity (Numeric): 4 (in groin pre-tx. Up to 7/10 in groin when walking. Had painin low back and L/R LE when walking.) Participation Significantly Limited?: (Somewhat) Said he sometimes does not do stairs, at his [facility]. Ambulated independently without an AD. Said hiswalking tolerance was part of a block at best pre-admit, limited by pain in his legs +/- back. Saidhis bed is high off the ground. Sits in a regular chair to eat his meals. O: Mental Status Mental Status: Alert (Had difficulties giving a social history) Follows Directions: Follows 1 step direction Delirium Assessment - CAM Short (Confusion Assessment Method) Acute onset OR fluctuating course: No Inattention: Yes Disorganized Thinking: No Altered level of consciousness: No CAM result: Negative Restrictions/Precautions Weight Bearing Restrictions: None Precautions: (Up ad celia. Wound in groin/s. Bed/Tab Alarm. Fall. PIV B UE. Delirium. Longstanding gangrene on L great toe. TMA R foot.) Vital Signs 11/15/2023 0750 11/15/2023 0900 11/15/2023 1100 BP: 158/90 -- 141/78 Patient Position for BP: Lying Down -- Lying Down Pulse: 76 72 74 SpO2: 98 % -- 97 % Transfer & Bed Mobility Supine to/from Sit: Modified independent (Stand to Supine in bed- Pt crawled into bed w the bed sethigh. Says his bed at home is high off the floor. Supine to Sit L side of bed- Mod I.) Sit to/from Stand: Modified independent (From recliner w/s Geomat in place. From low toilet w both hands holding on to grab bar to his L.) Scooting: Modified independent (back in recliner when sitting in recliner- Mod I) -I placed 1.5 Geomat cushions over the entire width of the recliner in his room to see if patient'sgroin would be more comfortable w the added cushioning. He said it was more comfortable. B/c his feet didn't touch the ground w the added height of the Geomat cushion, I elevated the legrest so that he'd have full support under his legs. Gait Distance (m): 80 m (and inside room. Inside room tended to hold walker in the air somewhat when mobilising. Started c/o LBP after standing for a while and taking a few steps w the walker.) Device: Front wheeled walker Assistance: Stand by assist (SBA w 2ww) Gait Quality (General): Slowed (Enlarged IRINEO d/t body habitus, slightly antalgic when in R SLS) Sitting Static Balance Level of Assistance: Independent (Sitting on EOB, toilet or recliner) Had iodine all over the sock on his L foot d/t RN having recently placed iodine and kerlix dressingover his gangrenous L great toe. Interdisciplinary Communication -RN: OK for PT. -OT: Spoke w OT about d/c planning. Fall Risk Assessment: None of the above Positioning: Sitting reclined in recliner w legs elevated, tray table close by and call button in the chair w him. Treatment rendered: Gait training;Transfer training;Bed mobility training;Positioning Total treatment time: 25 minutes A: Patient is making gradual progress w PT. Found it was more comfortable for his groins when sitting in the recliner w Geomat cushion under him as opposed to sitting on the seat itself. He was Mod Ifor standing from elevated surfaces like the recliner and EOB and from the low toilet w heavy reliance on the grab bar to his L. He's a questionable historian regarding his social history. He needed SBA to ambulate w the 2ww. Oftentimes, when walking short distances, he tends to hold the walker offthe floor instead of keeping the feet of the walker on the floor. It would be good for someone to contact his [facility] to see what kind of help he gets/can get from [facility] staff and if he needs to do stairs or not. D/c planning will depend on how pt progresses w PT while in hospital. He can d/c home if he does well and is independent w all aspects of functional mobility OR if he's able to get help PRN for mobility- eg has a call button to call for help. If he still needs some help for mobility and isn't able to get help from [facility] staff for mobility, then recommend he go to a rehab facility for continued PT. Patient seemed to indicate today that he didn't feel it was a good idea for him to d/c directly home. Note: Patient seems off mentation pablo. Not sure if it's b/c of his paranoid schizophrenia vs pt having had delirium, etc... P: Continue to see patient 4-5x/wk depending on census/prioritisation. Next Visit: Assess sit/stand from EOB w bed set at its lowest height. Try [place] vs [place]. ContinueGT w 2ww vs try SEC vs try no AD. Try stairs eventually? LEI MAKER Appropriate: Yes Kenrick Fisher, PT 11/15/2023 Pager: [facility] * Jay Ibanez MD - 11/15/2023 9:47 AM CDT SURGERY PROGRESS NOTE--PGY1 Matt Thibodeaux Daryamaryzena : 1980 Sex: male SIGNIFICANT EVENTS IN THE PAST 24 HRS: Cr decreased from 3.24 to 2.86. SUBJECTIVE: Patient endorses minimal pain over surgical site during dressing change, he mentions no abdominal pain, no shortness of breath, and no fever. Patient passed small soft stool yesterday. OBJECTIVE: BP (!) 158/90 (Cuff Location: Right Arm) Pulse 76 Temp 37.1 ??C (98.8 ??F) (Oral) Resp 15 Ht 1.803 m (5' 10.98) Wt (!) 140.5 kg (309 lb 11.9 oz) SpO2 98% BMI 43.22 kg/m?? Body mass index is 43.22 kg/m??. Intake/Output Summary (Last 24 hours) at 11/15/2023 0947 Last data filed at 11/15/2023 0640 Gross per 24 hour Intake 200 ml Output 2126 ml Net -1926 ml Physical Examination: General: Patient laying in bed awake, not in acute distress. CV: Rate as noted, regular rhythm, Pulm: Unlabored Respirations. On Room Air. Abd: Abdomen soft, non-tender, non-distended. Msk: Full range of motion present in all four extremities. Skin: Warm, dry, intact. Neuro: Alert, oriented x 3. No gross focal deficits Catheter in place theres no signs of blockage, erythema, or drainage. Labs / Imaging: BMP Lab Results Component Value Date/Time NA 136 11/15/2023 0739 K 4.2 11/15/2023 0739 CHLORIDE 102 11/15/2023 07 CO2 21 (L) 11/15/2023 07 GLU 176 (H) 11/15/2023 07 UN 38 (H) 11/15/2023 0739 CR 2.83 (H) 11/15/2023 0739 CR 2.86 (H) 11/15/2023 0739 CA 7.6 (L) 11/15/2023 0739 CMP Lab Results Component Value Date/Time NA 136 11/15/2023 0739 K 4.2 11/15/2023 0739 CHLORIDE 102 11/15/2023 0739 CO2 21 (L) 11/15/2023 0739 GLU 176 (H) 11/15/2023 0739 UN 38 (H) 11/15/2023 0739 CR 2.83 (H) 11/15/2023 0739 CR 2.86 (H) 11/15/2023 0739 CA 7.6 (L) 11/15/2023 0739 MG 2.4 11/14/2023 0530 ALBUMIN 2.9 (L) 11/10/2023 1431 TPRO 7.1 11/10/2023 1431 ALP 104 11/10/2023 1431 ALT 9 11/10/2023 1431 AST 14 11/10/2023 1431 TBILI 0.3 11/10/2023 1431 Lab Results Component Value Date/Time WBC 11.96 (H) 11/14/2023 0530 RBC 3.21 (L) 11/14/2023 0530 HGB 9.1 (L) 11/14/2023 0530 HCT 28.5 (L) 11/14/2023 0530 PLT 372 11/14/2023 0530 MCV 88.8 11/14/2023 0530 MCH 28.3 11/14/2023 0530 MCHC 31.9 11/14/2023 0530 RDW 13.4 11/14/2023 0530 MPV 9.8 11/14/2023 0530 NEUTNO 13.41 (H) 11/11/2023 0536 LYMPHAB 2.96 11/11/2023 0536 MONOABSNO 0.87 11/11/2023 0536 EOSNUMB 0.00 11/10/2023 1431 BASO 0.17 11/11/2023 0536 Susceptibility data from last 90 days. Collected Specimen Info Organism 11/10/23 Tissue from Perineal Staphylococcus epidermidis Actinomyces species Staphylococcus pettenkoferi 11/10/23 Swab from Perineal Staphylococcus epidermidis Actinomyces species Medicine consult (11/14): Resume patient's LEI MAKER losartan 50mg PO daily when Cr is closer to baseline (likely ~1.0) Increase lantus to 28 units q24h Recommend hydralazine 10mg PO q6h prn for SBP >180 Strict I/O, monitor UOP. Avoid nephrotoxins (IV contrast, NSAIDs), renal dosing of meds Medicine consult (11/13): Antibiotics per ID specialists Do not resume GABRIELLA / ARB at this time until renal function is improving Recommend hydralazine 10mg PO q6h prn for SBP >180 Strict I/O, monitor UOP. Avoid nephrotoxins (IV contrast, NSAIDs), renal dosing of meds Likely will need increased lantus dosing, monitor for today and hold off given uptrending Cr. ASSESSMENT: 43 y.o. 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 S/p perineal debridement (11/09 and 11/10). Surgery team changed the dressing 11/13. 11/13 Cr raised to 3.21 from 3.04 and Bun increased from 37 to 40,concerned for JANEL. 11/14 Cr decreased 2.86 and BUN decreased to 38. HCV, HBV, HIV screeing was negative, proteinuria decreased. U/A was not active. Changed hydralazine to PO. Dressing needs to be changed 11/14. Metronidazole changed from IV to oral per ID consultation. Insulin lantus was increased from25 to 28 per medicine. Plan: - daily AM CBC for now Left great toe gangrene Continue with oral metronidazole/IV ceftriaxone and monitor. - Daily dressing change Type 2 DM Diagnosed with Dmt2 in 2010. Home regimen: 30u glargine BID, lispro 10u TID AC metformin 500mg BID.Most recent a1c 6.8% on 07/27/23. Continue Glargine 25 units Q24H, Aspart TID AC and at bedtime While on PO: - consistent carb diet, medium - glucose checks QID TID AC and HS Discharge recommendations (please page medicine morning of DC to confirm no changes) - resume home diabetes regimen: - 30u glargine BID - lispro 10u TID AC - metformin 500mg BID HTN Continue with oral hydralazine BID 40mg, prazosin 1mg at bedtime. Acute Kidney Injury Ordered Urinalysis, will repeat every 24-48 hours, and will monitor urine output closely. 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 Would give dose here if due and if available on formulary. Tobacco use - offer nicotine patches, gum, lozenges while inpatient - cessation counseling as able Neuro/Pain Control: Multimodal -Scheduled: Tylenol, Gabapentin, cyclobenzaprine, Lexapro, Trazodone -PRN: Hydromorphone Skin/Wounds: Dressing changed (11/13) DVT prophylaxis: SCDs, Lovenox 40 BID (11/11) Weight Bearing: WBAT Activity: Ad celia/with assist Disposition: Nico Murray MD, 11/15/2023 9:47 AM PGY-1 General Surgery FACULTY NOTE I saw and evaluated the patient on the date of the resident's note. I discussed with the resident and agree with the resident???s findings and plan documented in the resident???s note from above. Anyrevisions by me are documented. Jay Ibanez MD, 11/16/2023 12:32 PM * Dominga Crawford LGSW - 11/15/2023 9:[address] Test Examiner Progress Note Spoke to SABINE Hartman at [facility], where patient resides. Informed her pt will likely be ready for discharge towards the end of the week per MDR. Asked if they are able to assist with daily wound care. Unfortunately facility cannot help with this. The facility helps with med management, meals, housekeeping, and laundry. May have to explore options for home health or TCU for woundcare. [facility] - [phone] opt 3. Dominga Crawford LGSW, 11/15/2023 2:59 PM * Chayo Townsend OTR/L - 11/15/2023 9:01 AM CDT OCCUPATIONAL THERAPY This patient was not seen by OT due to patient being unwilling to participate at this time. Pt asleep at OT arrival, opens eyes to name. Requests to rest and closes eyes- OT will return later today to continue OT POC. Anticipate pt may be able to return to [facility] given participation with PT on 11/13 but will continue to update d/c recs after ADL re-assessment. This patient will be rescheduled for later today if able to continue to address the OT plan of care. Chayo Townsend OTR/Brian, 11/15/2023 9:02 AM * Shani Shaw MD - 11/15/2023 7:04 AM CDT MEDICINE CONSULT FOLLOW-UP- STAFF Matt Low : 1980 Sex: male Patient Summary: Matt Low is a 43 y.o. male with PMH of T2DM, prior TMA or right foot, HTN, paranoid schizophrenia, situs inversus, tobacco use, obesity, admitted on 11/10/2023 as a transfer from OSH for emergent surgical debridement for demar's gangrene. Medicine was consulted by Dr. Churchill for: Diabetes management, antibiotic selection ASSESSMENT: Nonoliguric Acute Kidney Injury, improving, likely ATN - multifactorial given vanc/zosyn, contrast,infection. Repeat urinalysis unremarkable and prot/Cr elevated but non-nephrotic. Perineal Necrotizing fasciitis s/p sharp excisional debridement 11/11/23 - vitals, WBC improving. Afebrile. Left great toe gangrene - defer to primary team if procedure or consult to Podiatry warranted Type 2 DM with neuropathy, retinopathy - sugars are above goal here (FPG goal <150). LEI MAKER lantus 30 units BID, lispro 10 units TID AC, metformin 500mg BID. A1c 6.8% on 07/27/23. Complications include h/o diabetes related infections. Hold LEI MAKER metformin while admitted. Continue statin. 11/12 got 25u lantus (<0.2/kg) and 35u aspart. Likely needs increase in insulin dosing but also use caution with impaired renal clearance / worsening renal function and this can contribute to hypoglycemia. HTN - above goal overnight. ARB is being held. Also may be hypervolemic given renal dysfunction, though UOP is acceptable. Holding LEI MAKER losartan 50mg daily. Agree with prn hydralazine but would changeto PO. Could start new agent (such as amlodipine) but patient should ultimately resume ARB once renal function is improved Paranoid schizophrenia - restarted LEI MAKER meds (escitalopram 20mg qhs, trazodone 50mg qhs, prazosin 1mg qhs). Given paliperidone (Invega) IM on 11/12/23 (due every 4 weeks for schizophrenia) Tobacco use - offer nicotine patches, gum, lozenges while inpatient H/o TBI Obesity RECOMMENDATIONS 11/15/23 Increase lantus to 28 units q24h Resume patient's LEI MAKER losartan 50mg PO daily when Cr is closer to baseline (likely ~1.0) Recommend hydralazine 10mg PO q6h prn for SBP >180 Strict I/O, monitor UOP. Avoid nephrotoxins (IV contrast, NSAIDs), renal dosing of meds Medicine will continue to follow. Please page Hospitalist Consult A on [employer] for any further issues or questions. SUBJECTIVE/Events of Past 24 Hours: Hospital Day: 5 Feeling fine. No changes. No questions or concerns this morning. OBJECTIVE: Blood pressure (!) 177/80, pulse 74, temperature 35.9 ??C (96.7 ??F), temperature source Axillary, resp. rate 12, height 1.803 m (5' 10.98), weight (!) 140.5 kg (309 lb 11.9 oz), SpO2 95%. Physical Exam Constitutional: General: He is not in acute distress. HENT: Head: Normocephalic. Eyes: General: No scleral icterus. Cardiovascular: Rate and Rhythm: Normal rate and regular rhythm. Pulmonary: Effort: Pulmonary effort is normal. No respiratory distress. Abdominal: General: Bowel sounds are normal. Tenderness: There is no abdominal tenderness. There is no guarding. Skin: General: Skin is warm and dry. Neurological: Mental Status: He is alert. Mental status is at baseline. Labs reviewed Shani Shaw MD, 11/15/2023 7:04 AM * Jay Ibanez MD - 11/14/2023 2:55 PM CDT SURGERY PROGRESS NOTE--BRICKLAYER SUPERVISOR Matt Low : 1980 Sex: male SIGNIFICANT EVENTS IN THE PAST 24 HRS: Was tachypneic (25) at 4 am which went down to regular rate later that morning. Reached a BP of 180/93 at 4:24 am, was given IV hydralazine 10mg at 5:16 am. BP then was measured to be 131/117 at 11:50 am. BUN increased from 37 to 40 and Cr increased from 3.4 to 3.21. SUBJECTIVE: Patient endorses minimal pain over surgical site during dressing change, he mentions no abdominal pain, no shortness of breath, and no fever. Patient passed small soft stool yesterday. OBJECTIVE: BP (!) 131/117 (Cuff Location: Right Arm) Pulse 101 Temp 35.7 ??C (96.3 ??F) (Axillary) Resp 22 Ht 1.803 m (5' 10.98) Wt (!) 140.5 kg (309 lb 11.9 oz) SpO2 98% BMI 43.22 kg/m?? Body mass index is 43.22 kg/m??. Intake/Output Summary (Last 24 hours) at 11/14/2023 1459 Last data filed at 11/14/2023 0900 Gross per 24 hour Intake 240 ml Output 1601 ml Net -1361 ml Physical Examination: General: Patient laying in bed awake, not in acute distress. CV: Rate as noted, regular rhythm, Pulm: Unlabored Respirations. On Room Air. Abd: Abdomen soft, non-tender, non-distended. Msk: Full range of motion present in all four extremities. Skin: Warm, dry, intact. Neuro: Alert, oriented x 3. No gross focal deficits Catheter in place theres no signs of blockage, erythema, or drainage. Labs / Imaging: BMP Lab Results Component Value Date/Time NA 136 11/14/2023 0530 K 4.1 11/14/2023 0530 CHLORIDE 103 11/14/2023 0530 CO2 24 11/14/2023 0530 GLU 194 (H) 11/14/2023 0530 UN 40 (H) 11/14/2023529 CR 3.21 (H) 11/14/202330 CA 8.2 (L) 11/14/2023529 CMP Lab Results Component Value Date/Time NA 136 11/14/2023 0530 K 4.1 11/14/2023 0530 CHLORIDE 103 11/14/2023 0530 CO2 24 11/14/2023 0530 GLU 194 (H) 11/14/2023 0530 UN 40 (H) 11/14/2023 0530 CR 3.21 (H) 11/14/202330 CA 8.2 (L) 11/14/2023529 MG 2.4 11/14/2023529 ALBUMIN 2.9 (L) 11/10/2023 1431 TPRO 7.1 11/10/2023 1431 ALP 104 11/10/2023 1431 ALT 9 11/10/2023 1431 AST 14 11/10/2023 1431 TBILI 0.3 11/10/2023 1431 Lab Results Component Value Date/Time WBC 11.96 (H) 11/14/2023529 RBC 3.21 (L) 11/14/2023529 HGB 9.1 (L) 11/14/2023529 HCT 28.5 (L) 11/14/2023529 PLT 372 11/14/2023529 MCV 88.8 11/14/2023529 MCH 28.3 11/14/2023529 MCHC 31.9 11/14/2023529 RDW 13.4 11/14/2023529 MPV 9.8 11/14/2023529 NEUTNO 13.41 (H) 11/11/2023535 LYMPHAB 2.96 11/11/2023535 MONOABSNO 0.87 11/11/2023 0536 EOSNUMB 0.00 11/10/2023 1431 BASO 0.17 11/11/2023 0536 Susceptibility data from last 90 days. Collected Specimen Info Organism 11/10/23 Tissue from Perineal Staphylococcus epidermidis Actinomyces species Staphylococcus petjacquelynkoferi 11/10/23 Swab from Perineal Staphylococcus epidermidis Actinomyces species ASSESSMENT: 43 y.o. 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 S/p perineal debridement (11/09 and 11/10). Surgery team changed the dressing 11/13. 11/13 Cr raised to 3.21 from 3.04 and Bun increased from 37 to 40,concerned for JANEL. We stopped vancomycin per ID, and ordered Urinalysis. Changed hydralazine to PO. Dressing needs to be changed 11/14. Plan: - daily AM CBC for now Left great toe gangrene Continue with oral metronidazole/IV ceftriaxone and monitor. Type 2 DM Diagnosed with Dmt2 in 2010. Home regimen: 30u glargine BID, lispro 10u TID AC metformin 500mg BID.Most recent a1c 6.8% on 07/27/23. Continue Glargine 25 units Q24H, Aspart TID AC and at bedtime While on PO: - consistent carb diet, medium - glucose checks QID TID AC and HS Discharge recommendations (please page medicine morning of DC to confirm no changes) - resume home diabetes regimen: - 30u glargine BID - lispro 10u TID AC - metformin 500mg BID HTN Continue with oral hydralazine BID 40mg, prazosin 1mg at bedtime. Acute Kidney Injury Ordered Urinalysis, will repeat every 24-48 hours, and will monitor urine output closely. 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 Would give dose here if due and if available on formulary. Tobacco use - offer nicotine patches, gum, lozenges while inpatient - cessation counseling as able Neuro/Pain Control: Multimodal -Scheduled: Tylenol, Gabapentin, cyclobenzaprine, Lexapro, Trazodone -PRN: Hydromorphone Skin/Wounds: Dressing changed (11/13) DVT prophylaxis: SCDs, Lovenox 40 BID (11/11) Weight Bearing: WBAT Activity: Ad celia/with assist Disposition: CHRIS Cordero Ma MS3 11/14/2023 [facility] Department of Surgery Pager: via telemediq RESIDENT WITH STUDENT: I saw the patient with the medical student today and performed, or re-performed, the physical exam and medical decision-making in the provision of this service and have verified the accuracy of all the medical student documentation and edited as necessary. Nicola Vasquez MD, 11/14/2023 6:32 PM PGY-1 General Surgery FACULTY NOTE I saw and evaluated the patient on the date of the resident's note. I discussed with the resident and agree with the resident???s findings and plan documented in the resident???s note from above. Anyrevisions by me are documented. Jay Ibanez MD, 11/16/2023 12:27 PM * Autumn Lamar PharmD - 11/14/2023 7:43 AM CDT Images from the original note were not included. PHARMACY VANCOMYCIN NOTE Matt Low : 1980 Sex: male Assessment: Interpretation of level timing: Level was drawn ~48 hours from previous dose, which is appropriate. Interpretation of trough level and current regimen: Last complete dose was given 11/11 0230. Level this morning indicates need for re-dose today if vanco is to continue. Plan: 1. Regimen: Vancomycin stopped 2. Next level planned: No level needed unless clinical change. 3. Continue to monitor urine output/Scr. 4. PharmD will follow, please page if you have questions. Indication for vancomycin therapy: skin and skin structure infection Current vancomycin regimen: Intermittent dosing Dose based on: actual BW Current estimated CrCl: 20 ml/min Renal function appears: worsening Recent Creatinine: Lab Results Component Value Date CR 3.21 (H) 11/14/2023 CR 3.04 (H) 11/13/2023 CR 2.24 (H) 11/12/2023 Desired vancomycin trough: 13-18 mcg/ml Level: Lab Results Component Value Date VANCOMYCIN 19.9 11/14/2023 (most recent) Autumn Lamar PharmD 11/14/2023 07:56 Pager: (Telmediq) * Shani Shaw MD - 11/14/2023 7:18 AM CDT MEDICINE CONSULT FOLLOW-UP- STAFF Matt Low : 1980 Sex: male Patient Summary: Matt Low is a 43 y.o. male with PMH of T2DM, prior TMA or right foot, HTN, paranoid schizophrenia, situs inversus, tobacco use, obesity, admitted on 11/10/2023 as a transfer from OSH for emergent surgical debridement for demar's gangrene. Medicine was consulted by Dr. Churchill for: Diabetes management, antibiotic selection ASSESSMENT: Nonoliguric Acute Kidney Injury, stable to slightly worsening, Cr increased 0.9 --> 1--> 2.2-- 3--> 3.21. Cr rise is slowing, suspect this is plateau of ATN and without further insult would expect Cr to start decreasing on 11/14 or 11/15. Suspect injury is multifactorial (prerenal from infection, contrast nephropathy due to IV contrast 11/09). Have not excluded post renal causes. Zosyn/vanc combo has been shown to cause renal injury in some patients - zosyn stopped 11/12. Repeat urinalysis unremarkable and prot/Cr elevated but non-nephrotic. Perineal Necrotizing fasciitis s/p sharp excisional debridement 11/11/23 - vitals, WBC improving. Afebrile. Left great toe gangrene - defer to primary team if procedure or consult to Podiatry warranted Type 2 DM with neuropathy, retinopathy - sugars are above goal here (FPG goal <150). LEI MAKER lantus 30 units BID, lispro 10 units TID AC, metformin 500mg BID. A1c 6.8% on 07/27/23. Complications include h/o diabetes related infections. Hold LEI MAKER metformin while admitted. Continue statin. 11/12 got 25u lantus (<0.2/kg) and 35u aspart. Likely needs increase in insulin dosing but also use caution with impaired renal clearance / worsening renal function and this can contribute to hypoglycemia. HTN - above goal overnight. ARB is being held. Also may be hypervolemic given renal dysfunction, though UOP is acceptable. Holding LEI MAKER losartan 50mg daily. Agree with prn hydralazine but would changeto PO. Could start new agent (such as amlodipine) but patient should ultimately resume ARB once renal function is improved Paranoid schizophrenia - restarted LEI MAKER meds (escitalopram 20mg qhs, trazodone 50mg qhs, prazosin 1mg qhs). Given paliperidone (Invega) IM on 11/12/23 (due every 4 weeks for schizophrenia) Tobacco use - offer nicotine patches, gum, lozenges while inpatient H/o TBI Obesity RECOMMENDATIONS 11/14/23 Antibiotics per ID specialists Do not resume GABRIELLA / ARB at this time until renal function is improving Recommend hydralazine 10mg PO q6h prn for SBP >180 Strict I/O, monitor UOP. Avoid nephrotoxins (IV contrast, NSAIDs), renal dosing of meds Likely will need increased lantus dosing, monitor for today and hold off given uptrending Cr. Medicine will continue to follow. Please page Hospitalist Consult A on [employer] for any further issues or questions. SUBJECTIVE/Events of Past 24 Hours: Hospital Day: 4 Feeling ok, denies any new complaints. Has some leg pain - RN just finished dressing change. Hypertensive overnight Noted to have 4 BMs yesterday per nursing note OBJECTIVE: Blood pressure (!) 165/75, pulse 83, temperature 36.4 ??C (97.6 ??F), temperature source Axillary, resp. rate (!) 25, height 1.803 m (5' 10.98), weight (!) 140.5 kg (309 lb 11.9 oz), SpO2 94%. Physical Exam Constitutional: General: He is not in acute distress. HENT: Head: Normocephalic. Eyes: General: No scleral icterus. Cardiovascular: Rate and Rhythm: Normal rate and regular rhythm. Pulmonary: Effort: Pulmonary effort is normal. No respiratory distress. Abdominal: General: Bowel sounds are normal. Tenderness: There is no abdominal tenderness. There is no guarding. Skin: General: Skin is warm and dry. Neurological: Mental Status: He is alert. Mental status is at baseline. Labs reviewed Shani Shaw MD, 11/14/2023 7:18 AM * Autumn Lamar PharmD - 11/13/2023 3:19 PM CDT Images from the original note were not included. PHARMACY VANCOMYCIN NOTE Matt Low : 1980 Sex: male Assessment: Interpretation of level timing: Level was drawn ~24 hours from previous dose, which is appropriate. Interpretation of trough level and current regimen: : Level was about 24 hours post last full dose although a partial dose was given 11/11 at 1340. Poor vancomycin clearance Plan: 1. Regimen: Intermittent dosing (last dose 11/11) 2. Next level planned: Will obtain next level with AM labs 3. Continue to monitor urine output/Scr. 4. PharmD will follow, please page if you have questions. Indication for vancomycin therapy: skin and skin structure infection Current vancomycin regimen: Intermittent dosing Dose based on: actual BW Current estimated CrCl: ~20 ml/min Renal function appears: worsening Recent Creatinine: Lab Results Component Value Date CR 3.04 (H) 11/13/2023 CR 2.24 (H) 11/12/2023 CR 1.03 11/11/2023 Desired vancomycin trough: 13-18 mg/L Level: Lab Results Component Value Date VANCOMYCIN 35.4 11/13/2023 (most recent) Autumn Lamar PharmD 11/13/2023 15:25 Pager: (Telmedia) * Nico Hogue MD - 11/13/2023 8:25 AM CDT Images from the original note were not included. SURGERY PROGRESS NOTE--PGY1 Matt Thibodeaux Daryamaryzena : 1980 Sex: male SIGNIFICANT EVENTS IN THE PAST 24 HRS: No acute events overnight. Hemodynamically stable, afebrile. Patient expressed concern about STI. SUBJECTIVE: Patient endorses minimal pain over surgical site, no abdominal pain, no shortness of breath. Patient had a bowel movement yesterday. A complete 10-point ROS was done and all systems negative except for what is documented in the HPI. OBJECTIVE: BP 112/72 Pulse 88 Temp 36.8 ??C (98.2 ??F) (Oral) Resp 12 Wt (!) 140.5 kg (309 lb 11.9 oz) SpO2 97% Body mass index is 43.22 kg/m??. Intake/Output Summary (Last 24 hours) at 11/13/2023 0825 Last data filed at 11/13/2023 0600 Gross per 24 hour Intake 100 ml Output 975 ml Net -875 ml Physical Examination: General: Patient laying in bed awake, not in acute distress. HEENT: Normocephalic, no ocular or otic drainage, no rhinorrhea CV: Rate as noted, regular rhythm, no murmur or rubs., S1/S2 present on auscultation. No PeripheralEdema. Pulm: Lung sounds present bilaterally, no wheezes or rales on auscultation. Unlabored Respirations.On Room Air. Abd: Abdomen soft, non-tender, non-distended. Perineal region: Mild tenderness over the surgical site and inguinal area with right side predominancy Msk: Full range of motion present in all four extremities. Skin: Warm, dry, intact. Neuro: Alert, oriented x 3. No gross focal deficits Labs / Imaging: CMP Lab Results Component Value Date/Time NA 137 11/13/2023 0518 K 4.4 11/13/2023 0518 CHLORIDE 103 11/13/2023 0518 CO2 22 11/13/2023 0518 GLU 168 (H) 11/13/2023 0518 UN 37 (H) 11/13/2023 0518 CR 3.04 (H) 11/13/2023 0518 CA 7.8 (L) 11/13/2023 05 ALBUMIN 2.9 (L) 11/10/2023 1431 TPRO 7.1 11/10/2023 1431 ALP 104 11/10/2023 1431 ALT 9 11/10/2023 1431 AST 14 11/10/2023 1431 TBILI 0.3 11/10/2023 1431 BMP Lab Results Component Value Date/Time NA 137 11/13/2023 0518 K 4.4 11/13/2023 0518 CHLORIDE 103 11/13/2023 0518 CO2 22 11/13/2023 0518 GLU 168 (H) 11/13/2023 0518 UN 37 (H) 11/13/2023 0518 CR 3.04 (H) 11/13/2023 0518 CA 7.8 (L) 11/13/2023 0518 CBC w/Diff Lab Results Component Value Date/Time WBC 13.27 (H) 11/13/2023 0518 RBC 3.28 (L) 11/13/2023 0518 HGB 9.2 (L) 11/13/2023 0518 HCT 30.0 (L) 11/13/2023 0518 PLT 317 11/13/2023 0518 MCV 91.5 11/13/2023 0518 MCH 28.0 11/13/2023 0518 MCHC 30.7 (L) 11/13/2023 0518 RDW 13.5 11/13/2023 0518 MPV 10.1 11/13/2023 0518 NEUTNO 13.41 (H) 11/11/2023 0536 LYMPHAB 2.96 11/11/2023 0536 MONOABSNO 0.87 11/11/2023 0536 EOSNUMB 0.00 11/10/2023 1431 BASO 0.17 11/11/2023 0536 Collected Specimen Type Organism 11/10/23 Tissue Staphylococcus epidermidis Actinomyces species Staphylococcus pettenkoferi 11/10/23 Swab Anaerococcus vaginalis 11/10/23 Swab Staphylococcus epidermidis Actinomyces species 11/10/2023 1713 11/12/2023 1417 ANAEROBE CULTURE [[id number]] (Abnormal) Tissue from Perineal 2:Perineal tissue Preliminary result Component Value Preliminary Report Positive Culture Many mixed anaerobes present. Culture in progress. POS 11/10/2023 1713 11/12/2023 1441 TISSUE CULTURE:INCLUDES GRAM STAIN [[id number]] (Abnormal) Tissue from Perineal 2:Perineal tissue Preliminary result Component Value Preliminary Report Positive Culture Rare Actinomyces species isolated. Most closely resembles Actinomyces hominis. Rare Staphylococcus pettenkoferi isolated. A member of the coagulase-negative Staphylococci. Staphylococcus epidermidis isolated in broth only. Culture in progress. POS Organism ACTINOMYCES SPECIES POS STAPHYLOCOCCUS PETTENKOFERI POS STAPHYLOCOCCUS EPIDERMIDIS POS Gram Stain Report Positive Gram stain Gram stain electronically reported to and acknowledged by: Fermin Osborn MD for Burn on 11/10/2023 18:43:03 by Silver Luna MLS Rare WBC's seen. Many gram positive cocci in clusters. POS 11/10/2023 1712 11/12/2023 1416 ANAEROBE CULTURE [[id number]] (Abnormal) Swab from Perineal 1: Perineal tissue swab Preliminary result Component Value Preliminary Report Moderate Anaerococcus vaginalis isolated. Culture in progress. POS Organism ANAEROCOCCUS VAGINALIS POS 11/10/2023 1712 11/12/2023 1534 WOUND CULTURE:GRAM STAIN OPTIONAL [[id number]] (Abnormal) Swab from Perineal 1: Perineal tissue swab Final result Component Value Final Report Rare Actinomyces species isolated. Most closely resembles Actinomyces hominis. One colony Staphylococcus epidermidis isolated. POS Organism ACTINOMYCES SPECIES POS STAPHYLOCOCCUS EPIDERMIDIS POS Gram Stain Report Many WBC's seen. Many gram positive cocci in clusters. Consultation: Medicine (11/11): - daily AM CBC for now - analgesia per primary - continue all current antibiotics for now pending speciation of intra-op tissue culture Left great toe gangrene Noted on arrival, see photos. skin proximal to gangrenous area is mildly erythematous. Any cellulitis would be well covered on above antibiotics - defer to primary team if procedure or consult to Podiatry warranted Type 2 DM Diagnosed with Dmt2 in 2010. Home regimen: 30u glargine BID, lispro 10u TID AC metformin 500mg BID.Most recent a1c 6.8% on 07/27/23. Complications include neuropathy, diabetes related infections, retinopathy. His home insulin regimen is heavily weight towards basal, will decrease basal dosing here to avoid hypoglycemia while NPO. Required total 30u insulin 11/10 while NPO with excellent blood sugarcontrol. 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 while admitted, resume on discharge - start 25u glargine now and continue regardless of NPO/PO status (ordered) When taking PO: - consistent carb diet, medium - glucose checks QID TID AC and HS - start 2u/CHO aspart TID AC + LDSSI (ordered) While NPO: - glucose checks q6h - stop sliding scale when NPO Discharge recommendations (please page medicine morning of DC to confirm no changes) - resume home diabetes regimen: - 30u glargine BID - lispro 10u TID AC - metformin 500mg BID HTN BP normal to slight hypertension while here - agree with holding uniform force captain antihypertensives (losartan 50mg daily, , consider restarting closer to DC - restart uniform force captain rosuvastatin 10mg qHS Paranoid schizophrenia - restart 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 Would give dose here if due and if available on formulary. Tobacco use - offer nicotine patches, gum, lozenges while inpatient - cessation counseling as able (pt unable to engage today) H/o TBI Obesity ASSESSMENT: 43 y.o. 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 S/p perineal debridement (11/09 and 11/10). Surgery team changed the dressing 11/11. 11/11 DM2 medications were adjusted per medicine recommendations. 11/12 patient Cr raised from 1.03 to 3.04, vancomycin was hold (intermitted dosing) due to high blood level. 1 litr of bolus fluid was given. Antibiotics were changed: piperacillin-tazobactam d/c ed instead ceftriaxone+ metronidazol started. Surgery team changed the dressing (11/12). Dressing needs to be changed tomorrow. STI screening panel was ordered due to patient request. Medicine consult 11/11: IMPRESSION AND RECOMMENDATIONS: Demar's Gangrene Necrotizing fasciitis Transferred from [facility] for scrotal swelling, pain, concern for Demar's gangrene, also found to have swelling and darkening of left toe consistent with gangrene. Febrile on arrival to40.1 C, no fever since. WBC 21 on arrival, decreasing. Now s/p I&D of perineal nec fasc 11/09, sharp excisional debridement or perineal nec fasc 11/10. Micro (all cultures from 11/09) - intra-op perineal tissue cx growing Gram + cocci in clusters - intra-op tissue MTB DNA amplification negative. all NGTD (as of 11/11): - blood cx x2 - perianal swab anaerobe cx - perianal swab fungal cx - perianal swab cx - intra-op tissue AFB cx - intra-op tissue anaerobe cx - intra-op tissue fungal cx Antibiotics - vancomycin (11/10 - ) - pip-tazo (11/09 - ) - clindamycin 11/09 - ) - linezolid (11/09) Plan: - daily AM CBC for now - analgesia per primary - continue all current antibiotics for now pending speciation of intra-op tissue culture Left great toe gangrene Noted on arrival, see photos. skin proximal to gangrenous area is mildly erythematous. Any cellulitis would be well covered on above antibiotics - defer to primary team if procedure or consult to Podiatry warranted Type 2 DM Diagnosed with Dmt2 in 2010. Home regimen: 30u glargine BID, lispro 10u TID AC metformin 500mg BID.Most recent a1c 6.8% on 07/27/23. Complications include neuropathy, diabetes related infections, retinopathy. His home insulin regimen is heavily weight towards basal, will decrease basal dosing here to avoid hypoglycemia while NPO. Required total 30u insulin 11/10 while NPO with excellent blood sugarcontrol. 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 while admitted, resume on discharge - start 25u glargine now and continue regardless of NPO/PO status (ordered) When taking PO: - consistent carb diet, medium - glucose checks QID TID AC and HS - start 2u/CHO aspart TID AC + LDSSI (ordered) While NPO: - glucose checks q6h - stop sliding scale when NPO Discharge recommendations (please page medicine morning of DC to confirm no changes) - resume home diabetes regimen: - 30u glargine BID - lispro 10u TID AC - metformin 500mg BID HTN BP normal to slight hypertension while here - agree with holding uniform force captain antihypertensives (losartan 50mg daily, , consider restarting closer to DC - restart uniform force captain rosuvastatin 10mg qHS Paranoid schizophrenia - restart 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 Would give dose here if due and if available on formulary. Tobacco use - offer nicotine patches, gum, lozenges while inpatient - cessation counseling as able (pt unable to engage today) H/o TBI Obesity PLAN: Neuro/Pain Control: Multimodal Scheduled: Tylenol, Gabapentin, cyclobenzaprine PRN: Hydromorphone CV: Monitor blood pressure and pulse and intervene as needed. Restart uniform force captain rosuvastatin 10mg qHS Pulm: Encourage incentive spirometer Pulse oximetry per unit protocol Turn cough & deep breathe May utilize oxygen supplemental oxygen as needed to keep saturation greater than 90%. FEN/GI: Diet: Consistent Carb-Med: Endocrine: - glucose checks QID TID AC and HS - start 2u/CHO aspart TID AC + LDSSI (ordered) While NPO: - glucose checks q6h - stop sliding scale when NPO Bowel Regimen: Senna, Miralax, Biscodyl supp ID: WBC and fever monitoring, vancomycin hold, clindamycin and piperacillin tazobactam are d/c ed ceftriaxone+metronidazole started Skin/Wounds: Dressing changed today (11/12) Consultation: Patient consulted with the medicine service to adjust insulin and antibiotics. DVT prophylaxis: SCDs, Lovenox 40 BID (11/11) Weight Bearing: WBAT Activity: Ad celia/with assist Disposition: Nico Murray MD, 11/13/2023 8:25 AM [facility] Department of Surgery Pager: via telemediq Surgery Discharge Milestones (Inpatient Primary Team only): Associated attestation - Alma Owusu MD - 11/13/2023 11:58 AM CDT FACULTY WITH RESIDENT: I saw and evaluated the patient 11/13/2023. I discussed with the team and agree with the findings and plan documented in the resident's note. Any revisions by me are documented. Alma Owusu MD, 11/13/2023 11:58 AM Attending Physician General/Trauma Surgery Surgical Critical Care * Shani Shaw MD - 11/13/2023 7:54 AM CDT MEDICINE CONSULT FOLLOW-UP- STAFF Matt Low : 1980 Sex: male Patient Summary: Matt Low is a 43 y.o. male with PMH of T2DM, prior TMA or right foot, HTN, paranoid schizophrenia, situs inversus, tobacco use, obesity, admitted on 11/10/2023 as a transfer from OSH for emergent surgical debridement for demar's gangrene. Medicine was consulted by Dr. Churchill for: Diabetes management, antibiotic selection ASSESSMENT: Acute Kidney Injury, Cr increased 0.9 --> 1--> 2.2-- 3. Suspect multifactorial (prerenal frominfection, contrast nephropathy due to IV contrast 11/09). Have not excluded post renal causes. Zosyn/vanc combo has been shown to cause renal injury in some patients. Perineal Necrotizing fasciitis s/p sharp excisional debridement 11/11/23 - vitals, WBC improving. Afebrile. Left great toe gangrene - defer to primary team if procedure or consult to Podiatry warranted Type 2 DM with neuropathy, retinopathy - [employer] lantus 30 units BID, lispro 10 units TID AC, [id number] BID. A1c 6.8% on 07/27/23. Complications include h/o diabetes related infections. Hold [employer] metformin while admitted. Continue statin. HTN - mostly at goal off antihypertensives. Holding [employer] losartan 50mg daily Paranoid schizophrenia - restarted [employer] meds (escitalopram 20mg qhs, trazodone 50mg qhs, prazosin 1mg qhs). Given paliperidone (Invega) IM on 11/12/23 (due every 4 weeks for schizophrenia) Tobacco use - offer nicotine patches, gum, lozenges while inpatient H/o TBI Obesity RECOMMENDATIONS 11/13/23 Repeat urinalysis. Obtain urine Prot/Cr ratio Flush felton and confirm no obstruction Decrease dose of gabapentin due to renal impairment Renal dosing of all medications (check with PharmD) Avoid nephrotoxins (IV contrast, NSAIDs), monitor strict I/O Stop zosyn. Start ceftriaxone q24h AND metronidazole 500mg IV q6h Continue vancomycin, dosing per PharmD Recommend consult to Infectious Disease service to assist with determining antibiotic choice and duration Daily CBC, BMP Consistent carb - medium diet, continue lantus 25 units daily and aspart MDSSI with 2 units per carb choice TIDWM Continue to hold losartan given normal BP and Acute Kidney Injury Medicine will continue to follow. Please page Hospitalist Consult A on [employer] for any further issues or questions. SUBJECTIVE/Events of Past 24 Hours: Hospital Day: 3 Feeling ok, making some jokes about the length of the bed. Denies any new questions or concerns. Denies any trouble with urination. OBJECTIVE: Blood pressure 120/85, pulse 92, temperature 36.2 ??C (97.1 ??F), temperature source Oral, resp. rate 22, height 1.803 m (5' 10.98), weight (!) 140.5 kg (309 lb 11.9 oz), SpO2 96%. Physical Exam Constitutional: General: He is not in acute distress. HENT: Head: Normocephalic. Eyes: General: No scleral icterus. Cardiovascular: Rate and Rhythm: Normal rate and regular rhythm. Pulmonary: Effort: Pulmonary effort is normal. No respiratory distress. Abdominal: General: Bowel sounds are normal. Tenderness: There is no abdominal tenderness. There is no guarding. Skin: General: Skin is warm and dry. Neurological: Mental Status: He is alert. Mental status is at baseline. Labs reviewed Shani Shaw MD, 11/13/2023 7:55 AM * Gala Salinas, PharmD - 11/12/2023 2:59 PM CDT Images from the original note were not included. PHARMACY VANCOMYCIN NOTE Matt Low : 1980 Sex: male Assessment: Interpretation of level timing: Level was drawn ~12 hours from previous dose, which is appropriate. Interpretation of trough level and current regimen: The level drawn suggests that the current regimen is providing a trough concentration higher than desired. Plan: 1. Regimen: HOLD Vancomycin given supratherapeutic level - ordered 'intermittent' placeholder orderfor now 2. Next level planned: Will obtain next level with AM labs on 11/12 to see how quickly the patient isclearing the Vanco 3. Continue to monitor urine output/Scr. 4. PharmD will follow, please page if you have questions. Indication for vancomycin therapy: skin and skin structure infection / Necrotizing fasciitis Current vancomycin regimen: was on 2,750 mg IV Q12 hours (did receive ~10 minutes of 4th, post-trough dose before RN turned off infusion) - now changed to intermittent dosing Dose based on: actual BW Current estimated CrCl: ~59 ml/min, though given Acute Kidney Injury this is not reflective of current renal function - Cystatin-C added to today's labs in order to better evaluate renal function - it is still pending at the time of this note. Renal function appears: worsening Recent Creatinine: Lab Results Component Value Date CR 2.24 (H) 11/12/2023 CR 1.03 11/11/2023 CR 0.93 11/11/2023 Desired vancomycin trough: 13-18 mcg/mL Level: Lab Results Component Value Date VANCOMYCIN 47.5 11/12/2023 (most recent) Gala Salinas, PharmD 11/12/2023 14:59 Pager: ([employer]) * Gracia Kumar, RN - 11/12/2023 1:00 PM CDT 11/12/23 3424 Ballet Professor Used. Ballet Professor Used None needed (interview conducted with [facility] staff) Social Information Living Situation longterm Facility Admitted From hospital (Admitted from [facility]) Name of facility [facility] Patient medically appropriate to transfer back to outside hospital? No Patient Identified Support System AL staff Services Receiving DUCT INSTALLER / Skilled Services;Case Management;Waivered services (see comment) Complex Medical Needs Other (see comment) Transportation Used for Discharge wound care Safety Concerns None Behavioral Health Concerns None Patient Family Goals Patient's Discharge Goal back to [facility] Family's Discharge Goal no family Plan/Interventions Expected Discharge Disposition [facility] Was Patient Choice Provided? No Who was Choice Provided to? Other (comment) (pt will return to [facility] facility when medically stable) Patient Information Verification Verified demographic information, including SSN, Next of Kin, and Guardianship Yes Verified PCP Yes If post-acute placement is needed, have vaccination status needs been addressed? Yes Pt admitted from [facility] after transfer to there from [facility] for treatment of Demar's gangrene of perineal area * Nico Hogue MD - 11/12/2023 8:02 AM CDT SURGERY PROGRESS NOTE--BRICKLAYER SUPERVISOR Matt Thibodeaux Daryamaryzena : 1980 Sex: male SIGNIFICANT EVENTS IN THE PAST 24 HRS: No acute events overnight. Hemodynamically stable, afebrile. SUBJECTIVE: Patient endorses minimal pain over surgical site, no abdominal pain, no shortness of breath. Patient had a bowel movement yesterday. A complete 10-point ROS was done and all systems negative except for what is documented in the HPI. OBJECTIVE: BP 112/72 Pulse 88 Temp 36.8 ??C (98.2 ??F) (Oral) Resp 12 Wt (!) 140.5 kg (309 lb 11.9 oz) SpO2 97% There is no height or weight on file to calculate BMI. Intake/Output Summary (Last 24 hours) at 11/12/2023 0803 Last data filed at 11/12/2023 0602 Gross per 24 hour Intake 900 ml Output 676 ml Net 224 ml Physical Examination: General: Patient laying in bed awake, not in acute distress. HEENT: Normocephalic, no ocular or otic drainage, no rhinorrhea CV: Rate as noted, regular rhythm, no murmur or rubs., S1/S2 present on auscultation. No PeripheralEdema. Pulm: Lung sounds present bilaterally, no wheezes or rales on auscultation. Unlabored Respirations.On Room Air. Abd: Abdomen soft, non-tender, non-distended. Perineal region: Mild tenderness over the surgical site and inguinal area with right side predominancy Msk: Full range of motion present in all four extremities. Skin: Warm, dry, intact. Neuro: Alert, oriented x 3. No gross focal deficits Labs / Imaging: CMP Lab Results Component Value Date/Time NA 138 11/11/2023 1842 K 4.3 11/11/2023 1842 CHLORIDE 103 11/11/2023 1842 CO2 25 11/11/2023 1842 GLU 181 (H) 11/11/2023 1842 UN 21 (H) 11/11/2023 1842 CR 1.03 11/11/2023 1842 CA 8.0 (L) 11/11/2023 1842 ALBUMIN 2.9 (L) 11/10/2023 1431 TPRO 7.1 11/10/2023 1431 ALP 104 11/10/2023 1431 ALT 9 11/10/2023 1431 AST 14 11/10/2023 1431 TBILI 0.3 11/10/2023 1431 BMP Lab Results Component Value Date/Time NA 138 11/11/2023 1842 K 4.3 11/11/2023 1842 CHLORIDE 103 11/11/2023 1842 CO2 25 11/11/2023 1842 GLU 181 (H) 11/11/2023 1842 UN 21 (H) 11/11/2023 1842 CR 1.03 11/11/2023 1842 CA 8.0 (L) 11/11/2023 1842 CBC w/Diff Lab Results Component Value Date/Time WBC 17.41 (H) 11/11/2023 0536 RBC 2.72 (L) 11/11/2023 0536 HGB 7.8 (L) 11/11/2023 0536 HCT 24.1 (L) 11/11/2023 0536 PLT 203 11/11/2023 0536 MCV 88.6 11/11/2023 0536 MCH 28.7 11/11/2023 0536 MCHC 32.4 11/11/2023 0536 RDW 13.2 11/11/2023 0536 MPV 10.1 11/11/2023 0536 NEUTNO 13.41 (H) 11/11/2023 0536 LYMPHAB 2.96 11/11/2023 0536 MONOABSNO 0.87 11/11/2023 0536 EOSNUMB 0.00 11/10/2023 1431 BASO 0.17 11/11/2023 0536 ASSESSMENT: 43 y.o. 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 S/p perineal debridement (11/09 and 11/10). Surgery team changed the dressing today. Medicine team was consulted for management of DM2 and antibiotics. PLAN: Neuro/Pain Control: Multimodal Scheduled: Tylenol, Gabapentin, cyclobenzaprine PRN: Hydromorphone CV: Monitor blood pressure and pulse and intervene as needed Pulm: Encourage incentive spirometer Pulse oximetry per unit protocol Turn cough & deep breathe May utilize oxygen supplemental oxygen as needed to keep saturation greater than 90%. FEN/GI: Diet: NPO Changed to combo diet (11/11) Endocrine: insulin drip (2 u/h) Bowel Regimen: Senna, Miralax, Biscodyl supp ID: WBC and fever monitoring, Clindamycin + Piperacillin-tazobactam + Vancomycin Skin/Wounds: Dressing change today (11/11) dressing change Consultation: Patient consulted with the medicine service to adjust insulin and antibiotics. DVT prophylaxis: SCDs, Lovenox 40 BID (11/11) Weight Bearing: WBAT Activity: Ad celia/with assist Disposition: Nico Murray MD, 11/12/2023 8:03 AM [facility] Department of Surgery Pager: via telemediq Surgery Discharge Milestones (Inpatient Primary Team only): Associated attestation - Zac Churchill MD - 11/17/2023 7:19 AM CDT Faculty note: This was a shared visit on the date of the Advanced practice providers note, with the advanced practice provider. Please see below for my documentation of the shared visit. Wounds/bruising looks stable - cont daily cares to open areas, follow up for evaluation of wound closure progress and to monitor healing. PT/OT following and appreciate the input and recommendations Follow up with consulting teams Zac Churchill MD, 11/17/2023 7:19 AM * Gloria Velez RN - 11/11/2023 4:36 PM CDT PACU to IP Nursing Handoff Note S (Situation) Procedure/Surgery: Procedure(s) and Anesthesia Type: * IRRIGATION AND DEBRIDEMENT, PERINEAL WOUND - General Allergies: No Known Drug Allergies Precautions/Isolation: Standard 1:1 patient, guarded patient ,elopement risk patient: No B (Background) Past Medical History: see H&P A (Assessment) Mental Status: Oriented Mobility: Assist of Two Fall Risk: No Wounds/Dressings/Incisions/Skin integrity: see LDA LInes/Drains: PIVs (see LDA), no drains Medications given during OR & Recovery: fentanyl, zofran, dilaudid Recent Vital Signs: BP 141/94 Pulse 102 Temp 36.5 ??C (97.7 ??F) (Temporal) Resp 24 Wt (!) 140.5 kg (309 lb 11.9 oz) SpO2 96% Oxygen: Nasal Cannula, 4 L/min I&Os: no intake in PACU, felton catheter R (Recommendations) Radiology/Labs Complete: No - none needed Pain Scale: denies pain/discomfort Blood sugar:126 Nausea: NO Comments: RN: Gloria Velez RN Extension #: [id number] * Robert Kruse MDIV - 11/11/2023 1:43 PM CDT SPIRITUAL CARE VISIT SUMMARY Matt Low : 1980 Sex: male LOS: 1 day Reason for visit: Referral Assessment: Pt/family uncertain/anxious/frustrated;Pt/family coping/relieved Intervention: Compassionate support;Facilitate communication;Lead/support spiritual rituals Outcome: Situation assessed;Gratitude expressed;Ritual provided Notes: I met with Matt at bedside during rounds. Matt shared that he wanted a prayer for healing and moravian of his health which I offered as requested. He had no other support needs at this time. Plan: Spiritual Care Team is available to support patient and family as needed via number [phone]. Robert Kruse MDIV, 11/11/2023 1:43 PM Number: [phone] * Hannah Boland RT - 11/11/2023 12:40 PM CDT Respiratory Therapy LACE (Lung and Airway Clearance and Expansion) Protocol Assessment The patient is currently diagnosed or at risk for developing: Atelectasis I have evaluated this patient, and my recommended therapeutic regimen is: Incentive Spirometry Q1 hour W/A (Self-directed). Instruction has been provided. Pt was able to do 2000 mL on IS. Hannah Boland RT, 11/11/2023 12:40 PM * Sheila Dias RN - 11/11/2023 6:00 AM CDT NURSING ADMISSION NOTE Matt Low : 1980 SEX: male D: Matt Low was admitted to [facility] from PACU at 0600 for 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HHS) Hyperglycemia . Patient: groggy, oriented to person, place and time. Skin: Normal in appearance without lesions, rash or lacerations, dressing moist with iodine. Pain: dull. BP 130/68 (Cuff Location: Left Leg) Pulse 89 Temp 37.6 ??C (99.7 ??F) (Axillary) Resp 21 Wt(!) 140.5 kg (309 lb 11.9 oz) SpO2 94% A: Pt oriented to unit, room, and use of call light. . Patient on remote telemetry. R:PATIENT AND/OR FAMILY: patient was able to verbalize understanding of unit policy and plan of care. Questions answered. Learning considerations: Low Literacy, Cognitive loss, and Other Hx TBI. P: Implement orders as received. Will continue to monitor, follow plan of care, and notify providerand/or team as needed. Sheila Dias, RN, 11/11/2023 7:14 AM Patient Belonging 11/10/2023 1440 Reason for Inventory: ED/APS Admission Patient or family informed of Patient Valuables and Belongings Policy (#[id number]): Due to patient condition, [facility] staff will inventory and secure patient valuables Items Needing Securement: Cell phone Cell Phone Secured?: Yes Cell Phone Visually Damaged: Yes Patient Belongings: Clothing Clothing Comments: shirt, 1 shoe, 1 sock, * Gracia Tirado MDIV - 11/10/2023 3:26 PM CDT Pbx Mechanic Stabilization Room Note Matt Low : 1980 Sex: male LOS: 0 days Initial Description: Matt Low with history of gangrene. Pt was responding appropriately to questions. Patient and Family Context: No family present. Pt came from a facility in [place]. Plan: Spiritual Care Team is available to support patient and family as needed via number [phone]. Gracia Tirado MDIV, 11/10/2023 3:27 PM Number: [phone] * Camilla Treviño, PharmD - 11/10/2023 2:38 PM CDT ED Pharmacist Brief Note Ertapenem 1g IV given at 1209 Insulin aspart 10 units subq given at 1300 Camilla Treviño, PharmD, 11/10/2023 2:38 PM documented in this encounter H&P Notes * Paula Vazquez MD - 11/10/2023 2:51 PM CDT Images from the original note were not included. GENERAL SURGERY HISTORY AND PHYSICAL - PGY 2 Matt Low : 1980 Sex: male Hospital Problem List: Active Problems: * No active hospital problems. * Resolved Problems: * No resolved hospital problems. * Assessment: This is a 43 y.o. male pmhx of T2DM with prior right toe amputations transferred from [facility] with Demar's gangrene admitted on 11/09 for emergent surgical debridement. Plan for admission for treatment and monitoring of his infection. Plan: #Demar's Gangrene -OR for emergency debridement of perineum -Admit to surgery post operatively for pain control and management of infection. -F/u blood cultures -Continue Linezolid -Pain control- scheduled tylenol, PRN dilaudid and oxycodone #Hyperglycemia #T2DM Glucose 300s on arrival. -Continue non-DKA infusion -Consider medicine consult Chief Complaint: Transfer from OSH for Demar's Gangrene History of Present Illness: Matt Low is a 43 y.o. male who has had the complaint of groin pain for 2 days. He was transferred from [place] for Demar's gangrene. He has a history of T2DM on 10u long acting insulin three times daily, situs inversus, and TBI several years ago and lives in a fpc. CT at OSH showed gas in perineal tissue. Started on linezolid here in ED. Labs notable for CRP 30, procal 0.83, WBC20. Lactate mildly elevated to 2.3. Glucose 304, started on non DKA insulin drip. Recheck of WBC here was 21.95. urinalysis with large amount of blood an RBCs, glucose, bacteria present but neg for WBC, nitrite and leuk est. Blood cultures collected. S/p 2L LR , 1mg IV dilaudid, 975 mg PO tylenol. Medical/Surgical History : Per patient, hx of type two diabetes No past medical history on file. No past surgical history on file. Psychosocial History: Occupational History Not on file Tobacco Use Smoking status: Not on file Smokeless tobacco: Not on file Substance and Sexual Activity Alcohol use: Not on file Drug use: Not on file Sexual activity: Not on file Social History Narrative Not on file Family History: (???non-contributory?? or ???no history on file?? is not recommended) No family history on file. Medications: (Not in a hospital admission) Allergies and drug reactions: No Known Drug Allergies Review of systems: Complete review of systems done as noted below and/or in the History of Present Illness. All other systems negative. --- Integumentary (skin and/or breast): Skin: discoloration and suspicious lesions Physical Exam: BP (!) 83/58 Pulse (!) 112 Temp (!) 40.1 ??C (104.2 ??F) (Rectal) Resp (!) 22 Wt (!) 140.5 kg (309 lb 11.9 oz) SpO2 94% There is no height or weight on file to calculate BMI. Physical Exam Constitutional: General: He is not in acute distress. Appearance: Normal appearance. HENT: Head: Normocephalic and atraumatic. Comments: Diaphoretic. Cardiovascular: Rate and Rhythm: Normal rate and regular rhythm. Pulses: Normal pulses. Heart sounds: Normal heart sounds. No murmur heard. No friction rub. No gallop. Pulmonary: Effort: Pulmonary effort is normal. Abdominal: Comments: Protuberant, soft, non-tender, no masses. Genitourinary: Comments: Perineal erythema, severe tenderness, bullae and crepitus. Musculoskeletal: General: Normal range of motion. Skin: General: Skin is warm and dry. Comments: Right toes amputated with well healed stump. Left great toe gangrenous appearing. Neurological: General: No focal deficit present. Mental Status: He is alert and oriented to person, place, and time. Psychiatric: Mood and Affect: Mood normal. Behavior: Behavior normal. Labs: I have reviewed all the admission laboratory results. BMP Lab Results Component Value Date/Time NA 133 (L) 11/10/2023 1431 K 3.7 11/10/2023 1431 CHLORIDE 93 11/10/2023 1431 GLU 304 (H) 11/10/2023 1431 CR 0.98 11/10/2023 1431 CBC w/Diff Lab Results Component Value Date/Time WBC 21.95 (H) 11/10/2023 1431 RBC 4.26 (L) 11/10/2023 1431 HGB 12.0 (L) 11/10/2023 1431 HGB 12.4 (L) 11/10/2023 1431 HCT 36.3 (L) 11/10/2023 1431 PLT 262 11/10/2023 1431 MCV 85.2 11/10/2023 1431 MCH 28.2 11/10/2023 1431 MCHC 33.1 11/10/2023 1431 RDW 12.9 11/10/2023 1431 MPV 10.1 11/10/2023 1431 Other Diagnostic Studies: I have independently viewed the radiology images. CT OUTSIDE READ MSK/NON NEURO (11/10/2023 15:07) 1. Necrotizing soft tissue infection of the first digit of left foot. The distal end of the proximal first phalanx demonstrates some areas of cortical erosion. Study is suboptimal, however findings are concerning for osteomyelitis. Consider MRI or dedicated foot CT for additional evaluation. 2. Necrotizing soft tissue infection of the perineum and left testicle consistent with Demar's gangrene. CT OUTSIDE READ ABD/PELV (11/10/2023 15:07) 1.Extensive perineal and inguinal soft tissue gas, extending exterior to the left spermatic cord, into the scrotum. Findings concerning for necrotizing fasciitis. 2.Situs inversus totalis. 3.Other nonacute, and chronic findings as described above. EFAST: The left ventricular ejection fraction appears: Grossly preserved No pericardial effusion identified. RV Dilation present/absent: No significant right ventricular dilation appreciated A-Line predominance consistent with normal lung aeration Findings suggest euvolemia Primary care physician: No primary care provider on file. Attending Physician: No att. providers found Paula Vazquez MD 11/10/2023 14:52 EM PGY2 Green Surgery Associated attestation - Zac Churchill MD - 11/15/2023 2:03 PM CDT FACULTY NOTE I saw and evaluated the patient on the date of the literary writer's note. I discussed with the literary writer of the note and agree with their findings and plan documented in the literary writer's note from above. Any revisions by me are documented. Zac Churchill MD, 11/15/2023 2:03 PM documented in this encounter Consult Notes * Gala Salinas, PharmD - 11/24/2023 2:22 PM CDTAssociated Order(s): DISCHARGE MED REC FINAL REVIEW BY PHARMACY PHARMACY DISCHARGE NOTE Stephanie Low : 1980 Sex: male Pharmacy service was consulted for review of patient's discharge medications. Assessment: Pertinent points to note: -- LEI [employer]KER losartan, metformin and ibuprofen all discontinued due to ongoing acute kidney injury. I have reviewed the patient's medications for discharge and have discussed the necessary changes with the provider. Changes have been made and medication list updated and complete. Please page with any questions. Gala Salinas, PharmD 11/24/2023 14:22 For questions regarding this note, please contact pharmacist on service at [facility] ([facility]) [phone]. If no response within needed timeframe, please contact central pharmacy via phone at [phone]. Planned discharge medications are: Medication List Medications Indications acetaminophen 325 mg tablet Commonly known as: TYLENOL Take 3 tablets (975 mg) by mouth 3 times daily. Indications: Fever, Pain Indications: Fever, Pain amLODIPine 10 mg tablet Commonly known as: NORVASC Take 1 tablet (10 mg) by mouth daily. Indications: High Blood Pressure Disorder Indications: High Blood Pressure Disorder New bisacodyl 10 mg suppository Commonly known as: DULCOLAX 1 suppository (10 mg) by Rectal route daily as needed for Constipation. Indications: Constipation Indications: Constipation New chlorhexidine 0.12% solution Commonly known as: PERIDEX Swish and spit 15 mL by mouth daily. Indications: Gum Inflammation Indications: Gum Inflammation cyclobenzaprine 10 mg Commonly known as: FLEXERIL Take 1 tablet (10 mg) by mouth 3 times daily. Indications: Muscle Spasm Indications: Muscle Spasm New docusate sodium 100 mg capsule Commonly known [...] injection vial Commonly known as: LANTUS Inject 30 UNITS subcutaneously every twenty-four hours. Indications: Type 2 Diabetes Start taking on: November 25, 2023 Indications: Type 2 Diabetes Reduced from twice daily dosing LEI MAKER, per Medicine recommendations. insulin LISPRO 100 UNIT/ML Kwikpen Commonly known as: HumaLOG KwikPen Inject 6 UNITS subcutaneously 3 times daily before meals. Reduced from 10 units per dose LEI MAKER, per Medicine recommendations. Invega Sustenna 156 MG/ML injection Generic drug: paliperidone palmitate ER Inject 1 mL (156 mg) into a muscle every month. Indications: Schizoaffective Disorder Indications: Schizoaffective Disorder Last given on 11/12/23 - next dose due ~12/13/23. loratadine 10 mg tablet Commonly known as: CLARITIN Take 1 tablet (10 mg) by mouth daily. Indications: Hayfever Indications: Hayfever milk of magnesia 400 mg/5 mL suspension Take 15 mL by mouth daily as needed for Constipation. Indications: Acid Indigestion Indications: Acid Indigestion nicotine 14 mg/ 24hr Patch 24 hr Commonly known as: NICOTROL Apply 1 patch to skin daily. Indications: Nicotine Addiction Start taking on: November 25, 2023 Indications: Nicotine Addiction New nicotine polacrilex 2 mg gum Commonly known as: NICORELIEF 1 each (2 mg) by Gum route every 1 hour as needed for Nicotine Craving. Indications: Nicotine Addiction Indications: Nicotine Addiction New ondansetron 4 mg Tabs Commonly known as: ZOFRAN Take 1 tablet (4 mg) by mouth every 6 hours as needed for Nausea/Vomiting. Indications: Nausea and Vomiting Indications: Nausea and Vomiting New oxyCODONE 5 mg tablet Commonly known as: ROXICODONE Take 1-2 tablets (5-10 mg) by mouth every 6 hours as needed for Pain. Indications: Acute Pain Indications: Acute Pain New polyethylene glycol 3350 17 g Packet Commonly known as: MIRALAX;GLYCOLAX Take 17 g by mouth daily. Indications: ConstipationTake 1 capful to 17 gm zo mixed with full glass of water every day as directed. Start taking on: November 25, 2023 Indications: Constipation New prazosin 1 mg Capsule Commonly known as: [...] tablet (17.2 mg) by mouth twice daily. New traZODone 50 mg tablet Commonly known as: DESYREL Take 1 tablet (50 mg) by mouth at bedtime. Indications: Trouble Sleeping Indications: Trouble Sleeping * Paula Black DPM - 11/16/2023 1:47 PM CDT Images from the original note were not included. Podiatric Surgery Inpatient CONSULT - PGY-3 Matt Low : 1980 Sex: male Patient Summary: Matt Low is a 43 y.o. male with PMH of T2DM, prior TMA or right foot, HTN, paranoid schizophrenia, situs inversus, tobacco use, obesity, admitted on 11/10/2023 as a transfer from OSH for emergent surgical debridement for demar's gangrene. I was asked to see this patient by Zac Churchill MD regarding gas infection of the left hallux. ASSESSMENT: Gangrenous hallux, right Possible stable gas forming infection, right hallux --Present on admission --No acute signs of infection bedside --Gas identified on outside CT 11/09 Daily Tobacco Use Possible PAD --AUS ordered, pending Controlled T2DM with peripheral neuropathy --A1C: 6.8% 07/2023 Right TMA --Present on admission, done at OSH --No wounds Paranoid Schizophrenia History of TBI --Patient is own MDM. Confirmed with patient and primary team RECOMMENDATIONS: 1. Dressing: Dressed bedside with Betadine, 4 x 4 gauze, Kerlix, stocking. Podiatry to manage dressings at this time. Okay for nursing to reinforce as needed 2. Activity: Weightbearing as tolerated in surgical shoe. Surgical shoe present in room 3. Antibiotics: Continue ceftriaxone and Flagyl. Plan for intraoperative cultures 7-10. 4. Vascular: Ordered left lower extremity arterial ultrasound given gangrenous changes to the left hallux. If abnormal would recommend consult to interventional radiology. 5. Imaging: No additional imaging at this time. New left foot x-ray was ordered to evaluate for left hallux. CT was completed at outside facility 11-09 which identified foreigners gangrene and left hallux gas-forming infection. 6. Surgery: Plan for operating room tomorrow 11-16 for left hallux amputation versus partial ray amputation although less likely. Please medically optimize and keep NPO tonight at 2345. Appears the gas-forming infection that was seen on the CT done prehospital 11-09 has not progressed proximally due to absence of erythema proximal to the first MPJ. Discussed surgical plan with patient at bedside andpatient is agreeable, signed consent. Reviewed risks and benefits of proceeding with surgery. Patient is on medical decision maker but does reside in assisted living 7. Follow-up: Our team will continue to follow. Patient follows with Dr Hayden in [place] [facility] Please page director of recruitment and admissions resident with questions. Patient was seen with director of recruitment and admissions staff, Dr. Black CHIEF COMPLAINT: Left hallux wound HISTORY OF PRESENT ILLNESS: Matt Low is a 43 y.o. male presenting with left hallux necrosis. Patient initially presented to [facility] for concern for foreigners gangrene on 11-09. Prehospital images were pushed forward with concern for gas-forming infection of the left hallux. Our team was consulted today for further recommendations. While in the hospital, no additional workup has been done for the left hallux. Has not been do dressing changes. Prior to admission, patient states he noticed the gangrenous changes approximately 2 to 3 weeks ago and was doing dressing changes at home, but was unable to recall what he was specifically applying. He reports the left hallux is overall asymptomatic. He has not noticed much change in the left hallux since his admission to the hospital. Today he reports he is otherwise feeling well denies any local or systemic signs of infection. 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 Past Surgical History: Procedure Laterality Date WOUND IRRIGATION AND DEBRIDEMENT Unknown 11/10/2023 Procedure: Excisional debridement, PERINEAL NEC FASC; Laterality: Unknown; Surgeon: Zac Churchill MD; Service: Burn WOUND IRRIGATION AND DEBRIDEMENT N/A 11/11/2023 Procedure: IRRIGATION AND DEBRIDEMENT, PERINEAL WOUND; Laterality: N/A; Surgeon: Donovan Sloan MD; Service: General Surgery CURRENT HEALTH STATUS Medications: Current Facility-Administered Medications Medication Route Frequency nicotine (NICOTROL) 14 mg/ 24hr daily 1 patch Transdermal daily hydrALAZINE (APRESOLINE) tablet 10 mg Oral q4h prn metroNIDAZOLE (FLAGYL) tablet 500 mg Oral q6h insulin GLARGINE (LANTUS) 28 UNITS injection vial Subcutaneous q24h normal saline flush 0.9 % solution 10 mL IV Push q12h normal saline flush 0.9 % solution 10 mL IV Push q5 min prn cefTRIAXone (ROCEPHIN) 2 g in NaCl 0.9% 100 mL IVPB Intravenous q24h enoxaparin (LOVENOX) 40 mg/0.4 mL injection 40 mg Subcutaneous q12h rosuvastatin (CRESTOR) tablet 10 mg Oral hs prazosin (MINIPRESS) capsule 1 mg Oral hs traZODone (DESYREL) tablet 50 mg Oral hs insulin ASPART (NovoLOG) FlexPen Subcutaneous tid AC insulin ASPART (NovoLOG) FlexPen Subcutaneous hs mr x1 escitalopram (LEXAPRO) tablet 20 mg Oral hs acetaminophen (TYLENOL) tablet 975 mg Oral tid oxyCODONE (ROXICODONE) tablet 5-10 mg Oral q4h prn sennosides (SENOKOT) tablet 17.2 mg Oral bid bisacodyl (DULCOLAX) suppository 10 mg Rectal daily prn cyclobenzaprine (FLEXERIL) tablet 10 mg Oral tid ondansetron (ZOFRAN) tablet 4 mg Oral q6h prn polyethylene glycol 3350 (MIRALAX;GLYCOLAX) packet 17 g Oral daily Allergies and drug reactions: No Known Drug Allergies PSYCHOSOCIAL HISTORY Occupational History Not on file Tobacco Use Smoking status: Not on file Smokeless tobacco: Not on file Substance and Sexual Activity Alcohol use: Not on file Drug use: Not on file Sexual activity: Not on file Social History Narrative Not on file FAMILY HISTORY: No family history on file. REVIEW OF SYSTEMS: ALL other ROS negative except for those noted in HPI. PHYSICAL EXAMINATIONS: Temp (24hrs), Av.6 ??C (97.8 ??F), Min:36.2 ??C (97.1 ??F), Max:36.9 ??C (98.4 ??F) General: No apparent distress, alert and oriented Vascular: Pulses: PT/DP pulses nonpalpable secondary to edema, bilateral Hair growth absent at the level of the digits Capillary filling time less than three seconds on left digits 2-5 Lower extremity/foot edema absent Neurological: Protective sensation deficit noted - bilaterally to light touch Strength and tone bilaterally lower extremity muscles rated at 5/5 in all quadrants in lower leg and foot Dermatologic: There are open lesions on left foot There are no open lesions on the right foot Right hallux -- Gangrenous changes to the distal right hallux, distal to the IPJ -- Fibrotic loosely adhered tissue medial aspect of right hallux -- No holger purulence or malodor -- No crepitus or fluctuance Musculoskeletal: Right TMA No tenderness to palpation left foot REVIEW OF LABORATORY, PATHOLOGY, AND RADIOLOGY DATA: Lab results: Lab Results Component Value Date WBC 13.08 (H) 11/16/2023 RBC 3.38 (L) 11/16/2023 HGB 9.6 (L) 11/16/2023 HCT 28.9 (L) 11/16/2023 PLT 475 (H) 11/16/2023 Lab Results Component Value Date NA 139 11/16/2023 K 4.4 11/16/2023 CHLORIDE 106 11/16/2023 CO2 21 (L) 11/16/2023 GLU 261 (H) 11/16/2023 UN 35 (H) 11/16/2023 CR 2.67 (H) 11/16/2023 CA 8.3 (L) 11/16/2023 Lab Results Component Value Date/Time APTT 32.9 11/10/2023 1431 No results found for: HGBA1C CT OUTSIDE READ MSK/NON NEURO (11/10/2023 15:07) 1. Necrotizing soft tissue infection of the first digit of left foot. The distal end of the proximal first phalanx demonstrates some areas of cortical erosion. Study is suboptimal, however findings are concerning for osteomyelitis. Consider MRI or dedicated foot CT for additional evaluation. 2. Necrotizing soft tissue infection of the perineum and left testicle consistent with Demar's gangrene. Primary care physician: No primary care provider on file. Samina Singletary DPM, 11/16/2023 1:47 PM Podiatric Surgery Resident FACULTY NOTE FACULTY WITH RESIDENT: I saw and evaluated the patient on the date of the resident's note. I discussed with the resident and agree with the resident's findings and plan documented in the resident's note. Any revisions by me are documented. Paula Black DPM, 11/17/2023 8:17 AM * Che Garcia, PT - 11/14/2023 9:40 AM CDT Images from the original note were not included. PHYSICAL THERAPY INPATIENT ACUTE EVALUATION Matt Low was seen 11/14/2023 for a Physical Therapy Evaluation. PT Discharge Recommendations Discharge Recommendations: Safety risk for discharge home today. 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 Answer: As Per Dx Order Specific Question: Reasons for eval? Answer: In bed activities until off bedrest Order Specific Question: OK for out of bed activity? (Update Activity Order) Answer: Yes HISTORY Pertinent History: Patient Summary: Matt Low is a 43 y.o. male with PMH of T2DM, prior TMA or right foot, HTN, paranoid schizophrenia, situs inversus, tobacco use, obesity, admitted on 11/10/2023 as a transfer from [facility] for emergent surgical debridement for demar's gangrene. Medicine was consulted by Dr. Churchill for: Diabetes management, antibiotic selection ASSESSMENT: Acute Kidney Injury, Cr increased 0.9 --> 1--> 2.2-- 3. Suspect multifactorial (prerenal frominfection, contrast nephropathy due to IV contrast 11/09). Have not excluded post renal causes. Zosyn/vanc combo has been shown to cause renal injury in some patients. Perineal Necrotizing fasciitis s/p sharp excisional debridement 11/11/23 - vitals, WBC improving. Afebrile. Left great toe gangrene - defer to primary team if procedure or consult to Podiatry warranted Type 2 DM with neuropathy, retinopathy - LEI [employer]KER lantus 30 units BID, lispro 10 units TID AC, [id number] BID. A1c 6.8% on 07/27/23. Complications include h/o diabetes related infections. Hold LEI MAKER metformin while admitted. Continue statin. HTN - mostly at goal off antihypertensives. Holding LEI MAKER losartan 50mg daily Paranoid schizophrenia - restarted LEI MAKER meds (escitalopram 20mg qhs, trazodone 50mg qhs, prazosin 1mg qhs). Given paliperidone (Invega) IM on 11/12/23 (due every 4 weeks for schizophrenia) Tobacco use - offer nicotine patches, gum, lozenges while inpatient Medical History No past medical history on file. SOCIAL HISTORY Information gathered from: Patient Home: [facility] in [place] Prior level of function: independent Baseline Ambulation: Independent community ambulation Assist available at home: Yes, staff, states only 3 residents at Stairs required at home: Apartment accessible by elevator Previous assistive device used: None Services at home: meals provided, otherwise independent with all activity SUBJECTIVE Patient's Stated Goals: none stated Pain: The patient reports pain is acceptable. Mental Status: Oriented X 3, Alert, and Cooperative, [facility] Follows Direction: Yes, 1step OBJECTIVE Initial patient presentation upon PT arrival: resting in bed, pleasant and agreeable Skin: Intact, did not inspect incision in groin, L great toe necrotic Braces/Splints: None Lines: Peripheral IV Restraints/Fall Management: Bed alarm and Chair alarm Vital Signs: Vital Signs 11/14/2023 0600 11/14/2023 0700 11/14/2023 0915 BP: 165/75 138/121 143/76 Patient Position for BP: Lying Down Lying Down Lying Down Pulse: -- 88 72 SpO2: -- 96 % 96 % Oxygen Delivery: $ Delivery Method (Oxygen Therapy): nasal cannula (11/14/2399) Flow (L/min): 4 (11/14/2399) Sensation: UE: Light touch: Within Normal Limits: Yes LE: Light touch: Within Normal Limits: Yes Motor: ROM/Strength: WNL, equal Transfers & Bed Mobility: Supine to Sit: Supervision, Set-Up or Standby Prompting Sit to Stand: Supervision, Set-Up or Standby Prompting Stand to Sit: Supervision, Set-Up or Standby Prompting Gait Evaluation: Distance: 45 meters Assistive Device: Front - wheeled walker Assistance (Level): Supervison,Set up or Standby Prompting- Patient requires standby supervision, cueing or coaxing to walk, or patient walks only short distances independently with or without a device (household exception). Gait Deviations: slowed, steady, slightly antalgic d/t groin pain Stairs: NT, NA at home Balance: Sitting: WNL Standing: one posterior lean onto bed when attempting to pull up shorts, otherwise SBA Interdisciplinary Communication: RN: ok to see, updated Treatment rendered: Gait training;Transfer training;Bed mobility training;Strengthening Total treatment time: 25 minutes ASSESSMENT Matt Low is a 43 y.o. male presents for emergent surgical debridement for demar's gangrene,pt also with necrotic L great toe, WBAT. Pt independent at baseline, lives in , gets some assistance for meals. Today pt on 2 L NC, vitals stable. All activity SBA, using walker to ambulate 45 m, slowed pace. Pt significantly improved from OT session yesterday and previous notes. A&Ox3, but thought at hospital in [facility]. Anticipate pt will be able to d/c back to pending progress and pending that can provide wound care. Patient presents with Impaired gait, Decreased Strength, Impaired Balance, and Decreased Activity Tolerance. These impairments affect the patient's ability to safely and independently perform Bed Mobility, Transfers, Ambulation, Stairs, and Community Integration. Patient will benefit from continued skilled PT services to progress towards goals. See Care Plan for goals. PLAN Patient will be seen 4-5/wk until goals are met or patient is discharged. Next visit the plan is towork on ambulation with walker, trial w/o AD when ready, stairs as able, standing balance. [employer]ER Appropriate: Yes Participated in goal setting and treatment planning: Patient Agrees with goals and treatment plan: Patient - Yes. Che Garcia, PT 11/14/2023 Pager: [facility] PT Department * Guru Franco MD - 11/13/2023 1:14 PM CDTAssociated Order(s): CONSULT TO INFECTIOUS DISEASE ID-2 NEW CONSULT NOTE Matt Low 1980 male [id number] REASON FOR CONSULT: I was asked to see Matt Thibodeaux Daryabailey by Zac Churchill regarding Demar's gangrene. ASSESSMENT: 43 y.o. male pmhx of T2DM with prior right toe amputations [facility] for[facility], s/p I&D x 2, currently on ceftriaxone and metronidazole. Surgical debridement is paramount; this has been addressed. Current antibiotic regimen is appropriate. Transition metronidazole to oral (no benefit to IV). Duration dependent on clinical course. Anticipate ability to transition to oral therapy to complete therapy RECOMMENDATIONS: Agree with ceftriaxone and metronidazole Transition metronidazole to oral ID-2 will continue to follow. HPI: Matt Low is a 43 y.o. male admitted on 11/10/2023 2:28 PM for Demar's gangrene. 43 y.o. male pmhx of T2DM with prior right toe amputations transferred from [facility] forscrotal swelling, pain, concern for Demar's gangrene, also found to have swelling and darkening of left toe consistent with gangrene. Febrile on arrival to 40.1 C, no fever since. WBC 21 on arrival, decreasing. Now s/p I&D of perineal nec fasc 11/09, sharp excisional debridement. Return to theOR on 11/10. Per OR note: Sharp excisional debridement of open groin wound down to the level of the muscle and fascia of perineum, 10 cm 2, total wound measured 30cm x 15cm x 10cm. Minimal necrotic tissue, appeared grossly uninfected. Cultures consistent with synergistic necrotizing fasciitis. Growing Actinomyeces, Staphylococcus epidermidis/pettenkoferi, Anaerococcus spp and mixed anaerobes. Patient unable to participate in interview due to somnolence and confusion. ANTI-INFECTIVES: - ceftriaxone (11/12-) - metronidazole (11/12-) - vancomycin (11/10 - 11/11) - pip-tazo (11/09 - 11/12) - clindamycin 11/09 - 11/11) - linezolid (11/09) PMH: Problem List and medical history were reviewed in current EHR. EXAMINATION: BP 119/73 (Cuff Location: Left Arm) Pulse 78 Temp 35.9 ??C (96.7 ??F) (Oral) Resp 16 Ht 1.803 m (5' 10.98) Wt (!) 140.5 kg (309 lb 11.9 oz) SpO2 98% BMI 43.22 kg/m?? Constitutional: Somnolent Psychiatric: obtunded Eyes: Not examined ENT: not examined Neck: Not examined Lymph Nodes: Not Examined Pulmonary: chest symmetric, lungs clear bilaterally and no crackles, wheezes or rales Cardiovascular: Regular rate and rhythm, S1, S2, no murmurs/rubs/gallops GI/Abdomen: Soft, non-tender, non-distended, normoactive bowel sounds Extremities: Normal RELEVANT DATA: Labs: Lab Results Component Value Date/Time WBC 13.27 (H) 11/13/2023517 PLT 317 11/13/2023517 HGB 9.2 (L) 11/13/2023517 CR 3.04 (H) 11/13/2023517 Lab Results Component Value Date/Time WBC 13.27 (H) 11/13/2023 0518 WBC 17.87 (H) 11/12/2023 1136 WBC 17.41 (H) 11/11/2023 0536 Lab Results Component Value Date/Time CR 3.04 (H) 11/13/2023 0518 CR 2.24 (H) 11/12/2023 1136 CR 1.03 11/11/2023 1842 Microbiology: - intra-op perineal tissue cx growing Gram + cocci in clusters - intra-op tissue MTB DNA amplification negative. all NGTD (as of 11/11): - blood cx x2 - perianal swab anaerobe cx - perianal swab fungal cx - perianal swab cx - intra-op tissue AFB cx - intra-op tissue anaerobe cx - intra-op tissue fungal cx [facility] results: [facility] 11/13/2023 1:14 PM FACULTY NOTE I saw and evaluated Matt Low on today, 11/13/2023. Additional Medical Decision Information: need to fulfill 2 of 3 groups under 'A, B, C' to bill at the corresponding level: A) Number and Complexity of Problems This patient has 1 acute illness with systemic symptoms (MODERATE) B) Amount and/or Complexity of Data to be Reviewed and Analyzed Moderate (must meet requirements of at least 1 out of 3 categories) High (must meet requirements of at least 2 out of 3 categories) Category 1: Tests, documents, or independent historian(s), any combination of 3 of the following. [x] I have reviewed prior external note(s) from ED, H&P, and Specialist and noted the presenting symptoms and signs of their illness, work-up performed by the primary team and additional specialists, and the outcomes and results of prior admissions and clinic visits for the same infectious diseases issues addressed today. [x] I have reviewed the result(s) of each unique test and noted the results of all of the relevant clinical microbiology smears, stains, cultures, pathogen antibiotic sensitivity testing, serologies,PCRs, and all other molecular testing relevant to this patient's infectious disease evaluation. [x] I have ordered additional testing per recommendations above. [] My assessment required an independent historian. Category 2: Independent interpretation of tests [] Independent interpretation of a test Category 3: Discussion of management or test interpretation [] This patients condition was discussed with a clinical infectious diseases pharmacist and this conversation was necessary in developing this management plan. We discussed the optimal use of antimicrobial agents, the proper dose, monitoring and duration of therapy. C) Risk of Complications and/or Morbidity or Mortality of Patient Management Prescription drug management (MODERATE) Guru Franco MD, 11/13/2023 1:46 PM . * Chayo Townsend, OTR/L - 11/13/2023 11:12 AM CDT OCCUPATIONAL THERAPY ACUTE INITIAL EVALUATION Matt Low 11/13/2023 OT Discharge Recommendations Discharge Recommendations: Post-acute placement recommended Level/type of placement (OT): Sub-Acute Rehab facility Barriers to discharge to home/community: Pain;Additional assessment/treatment needed;Insufficient activity tolerance;Motor / physical impairments pose safety risk;Medical symptoms concerning for safety with ADLs / IADLs Post Discharge Follow-up: OT at post-acute placement Equipment Recommended: Equipment needs to be determined at next level of care OT In-patient follow-up / recommended referrals: Continue skilled OT services to achieve the goals on the plan of care / maximize safety and independence with ADL's / IADL's: - Recommended Frequency: 3x / week - Anticipated Duration of OT services: throughout hospital stay PM&R Consult Recommended: Patient Name: Matt Low : 1980 Age: 43 y.o. 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 * Treatment Diagnosis: Impairments in motor function that limit safety and or independence with ADL's/ IADL's Restrictions/Precautions: Activity Level: Up Ad Celia General Precautions: Falls Risk Hospital Course: Per note 11/11, ASSESSMENT: 43 y.o. 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 S/p perineal debridement (11/09 and 11/10). Surgery team changed the dressing today. Medicine team was consulted for management of DM2 and antibiotics. PLAN: Neuro/Pain Control: Multimodal Scheduled: Tylenol, Gabapentin, cyclobenzaprine PRN: Hydromorphone CV: Monitor blood pressure and pulse and intervene as needed Pulm: Encourage incentive spirometer Pulse oximetry per unit protocol Turn cough & deep breathe May utilize oxygen supplemental oxygen as needed to keep saturation greater than 90%. FEN/GI: Diet: NPO Changed to combo diet (11/11) Endocrine: insulin drip (2 u/h) Bowel Regimen: Senna, Miralax, Biscodyl supp ID: WBC and fever monitoring, Clindamycin + Piperacillin-tazobactam + Vancomycin Skin/Wounds: Dressing change today (11/11) dressing change Consultation: Patient consulted with the medicine service to adjust insulin and antibiotics. DVT prophylaxis: SCDs, Lovenox 40 BID (11/11) Weight Bearing: WBAT Activity: Ad celia/with assist Disposition: TBD Past Medical History No past medical history on file. Living Situation/Social History: Information obtained From: patient;chart Help Available at home: yes, 24 hour assist (assumed- pt unable to confirm this date) Patient is living in a/an : fpc Prior Level of Function: ADLs/IADLs: Received assistance from staff at residence Assistance with:: (pt unable to state what he receives assistance with; mentions LB dressing but ptconfused throughout session) Evaluation Subjective: [facility]. My legs hurt I want to brush my teeth. Pain: Pain Rating With Activity (Numeric): (does not state) Location: legs Patient Appearance: Lines: - Peripheral IV(s) Pt supine in bed at OT arrival- nursing just assisted pt with use of bed hendrickson R toes amputated- well healed stump L great toe gangrenous; oozing On 4L Nasal cannula Vitals: Vitals: 11/13/23 0800 BP: 120/85 Pulse: 98 Resp: 21 Temp: SpO2: 91% Upper Extremity Function: Hand Dominance: Right Bilateral UE ROM, strength, coordination, and sensation are WFL for basic self-cares. AROM: Bilateral UE's grossly WNL except: - Shoulder Flexion: ~150 on R; ~120 on L Strength: Bilateral UE's grossly 4/5 Finger to thumb opposition: delayed Activities of Daily Living: Grooming: Minimal assist (75% patient effort) Grooming Comments: facial and orals cares seated upright in bed Toileting: Dependent (less than 25% patient effort) Toileting Comments: felton catheter; nursing assisting pt with bed hendrickson prior to OT session; nurse reports up to bathroom with AX3 previous date Lower Body Dressing: Dependent (less than 25% patient effort) Lower Body Dressing Comments: to don sock on RLE Functional Mobility: Roll Left : Moderate assist (50% patient effort) Roll Right : Moderate assist (50% patient effort) Requires VC to initiate bed mobility Supine to/from Sit: Unable to perform (pt indicating increased pain; nurse reports pt able to get to EOB when motivated to) Activity Tolerance/Endurance: Patient tolerates HOB fully upright . Cognition: Mental Status: Oriented x 2;Lethargic;Cooperative;Follows 1 step direction (oriented to month and year; not to place [facility] [employer] [facility]; intermittently follows 1 steps commands; confused and making nonsensical comments) Baseline TBI per chart review Delirium assessment: Confusion Assessment Method (CAM) Acute onset OR fluctuating course: Yes Inattention: Yes Disorganized Thinking: Yes CAM result: Positive Delirium prevention / intervention appears indicated? Yes, per CAM assessment, pt is positive for delirium: Interventions provided: - engaged pt in functional tasks - provided re-orientation - promoted day / night sleep schedule (keeping pt awake during the day) Insight: Pt demonstrates insight into current condition and related safety considerations - No Problem solving: Pt able to complete basic functional problem solving - No Visual Perception: Pt reports visual changes - No Additional Treatment / Education Provided: Eval only Interdisciplinary Communication: RN: ok to see patient- just finished assisting pt to bedpan Barriers to Learning: cognitive impairments, limited attention, and limited ability to attend due to pain Rehab Potential: good ASSESSMENT: Pt is 43 y.o. 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 S/p perineal debridement (11/09 and 11/10). At baseline pt from [facility]. Pt unable to provide any social history this date- disoriented and confused throughout session; pt with baseline TBI. Is able to follow 1 step commands for basic grooming tasks from bed level although distractible. Unable to assess functional mobility given pt's painlevels. Anticipate pt will benefit from cotreat with PT to promote mobility. Will continue to update d/c recs pending additional social history information obtainment and further OOB assessment. Recommend post acute placement at this time. (See box at the top of note for additional information) Impairments: This patient demonstrates impairments in the following: Functional mobility Balance Endurance / activity intolerance Safety /judgement Performance Deficits / Activity Limitations: The impairments listed above affect the patient's ability to safely and independently engage in the following occupations : All Activities of Daily Living (ADL's) (i.e. grooming, dressing, toileting, bathing, etc.) All Instrumental Activities of Daily Living (IADLS's) (i.e. meal prep, money management, community mobility, shopping, etc.) Patient's Stated Goals: Does not state PLAN: See box at top of note for additional information. See care plan for OT goals (if indicated). Participated in goal setting and treatment planning: Patient Agrees with goals and treatment plan: Question patient's ability to understand Plan For Next OT Session: --ADLs: EOB ADLs Total treatment time: 18 minutes OT interventions and time spent on each: Eval: 18 minutes Therapist: EDWIN Alvarado/Brian Pager: [employer] Occupational Therapy Department * Sophie Barajas MD - 11/12/2023 10:07 AM CDTAssociated Order(s): CONSULT TO MEDICINE SERVICES INTERNAL MEDICINE CONSULT- STAFF Matt Low : 1980 Sex: male Reason for Consult: Diabetes management, antibiotic selection IMPRESSION AND RECOMMENDATIONS: Demar's Gangrene Necrotizing fasciitis Transferred from [facility] for scrotal swelling, pain, concern for Demar's gangrene, also found to have swelling and darkening of left toe consistent with gangrene. Febrile on arrival to40.1 C, no fever since. WBC 21 on arrival, decreasing. Now s/p I&D of perineal nec fasc 11/09, sharp excisional debridement or perineal nec fasc 11/10. Micro (all cultures from 11/09) - intra-op perineal tissue cx growing Gram + cocci in clusters - intra-op tissue MTB DNA amplification negative. all NGTD (as of 11/11): - blood cx x2 - perianal swab anaerobe cx - perianal swab fungal cx - perianal swab cx - intra-op tissue AFB cx - intra-op tissue anaerobe cx - intra-op tissue fungal cx Antibiotics - vancomycin (11/10 - ) - pip-tazo (11/09 - ) - clindamycin 11/09 - ) - linezolid (11/09) Plan: - daily AM CBC for now - analgesia per primary - continue all current antibiotics for now pending speciation of intra-op tissue culture Left great toe gangrene Noted on arrival, see photos. skin proximal to gangrenous area is mildly erythematous. Any cellulitis would be well covered on above antibiotics - defer to primary team if procedure or consult to Podiatry warranted Type 2 DM Diagnosed with Dmt2 in 2010. Home regimen: 30u glargine BID, lispro 10u TID AC metformin 500mg BID.Most recent a1c 6.8% on 07/27/23. Complications include neuropathy, diabetes related infections, retinopathy. His home insulin regimen is heavily weight towards basal, will decrease basal dosing here to avoid hypoglycemia while NPO. Required total 30u insulin 11/10 while NPO with excellent blood sugarcontrol. 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 while admitted, resume on discharge - start 25u glargine now and continue regardless of NPO/PO status (ordered) When taking PO: - consistent carb diet, medium - glucose checks QID TID AC and HS - start 2u/CHO aspart TID AC + LDSSI (ordered) While NPO: - glucose checks q6h - stop sliding scale when NPO Discharge recommendations (please page medicine morning of DC to confirm no changes) - resume home diabetes regimen: - 30u glargine BID - lispro 10u TID AC - metformin 500mg BID HTN BP normal to slight hypertension while here - agree with holding uniform force captain antihypertensives (losartan 50mg daily, , consider restarting closer to DC - restart uniform force captain rosuvastatin 10mg qHS Paranoid schizophrenia - restart 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 Would give dose here if due and if available on formulary. Tobacco use - offer nicotine patches, gum, lozenges while inpatient - cessation counseling as able (pt unable to engage today) H/o TBI Obesity Thank you for this consult. We will continue to follow Sophie Barajas MD, 11/12/2023 10:07 AM CHIEF COMPLAINT: scrotal pain and swelling HISTORY OF PRESENT ILLNESS: Matt Low is a 43 y.o. man w/PMH DMt2, s/p TMA of right foot, HTN, paranoid schizophrenia, situs inversus, tobacco use, obesity, who was admitted for Demar's gangrene. Patient initially presented to outside hospital, transferred here for emergent surgical debridement. History gathered from chart, patient sleeping and will not stay awake long enough to participate indiscussion. Transferred from [facility] for scrotal pain and swelling, concern for demar's gangrene, blood glucose 400 at OSH. Taken to OR 11/09 for I&D of perineum. Started on insulin gtt 11/09 and has remained on this through 11/11. Unable to complete 10 system ROS as patient will not stay awake long enough. MEDICATIONS: Medications Prior to Admission Medication Sig Dispense Refill chlorhexidine (PERIDEX) 0.12% mouth/throat solution Swish and spit 15 mL by mouth daily. ciprofloxacin (CIPRO) 500 mg oral tablet Take 1 tablet (500 mg) by mouth twice daily. escitalopram (LEXAPRO) 20 mg oral tablet Take 1 tablet (20 mg) by mouth daily. insulin LISPRO (HUMALOG) 100 UNIT/ML subcutaneous Kwikpen Inject 0.1 mL (10 UNITS) subcutaneously 3times daily before meals. paliperidone palmitate ER (INVEGA SUSTENNA) 156 mg/mL IM injection Inject 1 mL (156 mg) into a muscle every month. insulin GLARGINE (LANTUS SOLOSTAR) 100 units/mL subcutaneous SOPN SoloStar pen Inject 30 UNITS subcutaneously twice daily. loratadine (CLARITIN) 10 mg oral tablet Take 1 tablet (10 mg) by mouth daily. losartan (COZAAR) 50 mg oral TABS Take 1 tablet (50 mg) by mouth daily. metFORMIN (GLUCOPHAGE) 500 mg oral TABS Take 1 tablet (500 mg) by mouth twice daily. prazosin (MINIPRESS) 1 mg oral capsule Take 1 capsule (1 mg) by mouth at bedtime. rosuvastatin (CRESTOR) 10 mg oral tablet Take 1 tablet (10 mg) by mouth at bedtime. traZODone (DESYREL) 50 mg oral tablet Take 1 tablet (50 mg) by mouth at bedtime. acetaminophen (TYLENOL) 500 mg oral tablet Take 2 tablets (1,000 mg) by mouth every 6 hours as needed. docusate sodium (COLACE) 100 mg oral capsule Take 1 capsule (100 mg) by mouth twice daily as needed. hydrOXYzine pamoate (VISTARIL) 25 mg oral capsule Take 1-2 capsules (25-50 mg) by mouth every 6 hours as needed for Itching. ibuprofen (MOTRIN;ADVIL) 800 mg oral TABS Take 1 tablet (800 mg) by mouth 3 times daily as needed for Pain. milk of magnesia 400 mg/5 mL oral suspension Take 15 mL by mouth daily as needed for Constipation. ALLERGIES: No Known Drug Allergies PSYCHOSOCIAL HISTORY Unable to review with patient FAMILY HISTORY: No family history on file., unable to review with patient PHYSICAL EXAMINATIONS: BP 148/88 (Cuff Location: Right Arm) Pulse 88 Temp 36.7 ??C (98 ??F) (Oral) Resp (!) 6 Wt (!) 140.5 kg (309 lb 11.9 oz) SpO2 97% General: sleeping, in no acute distress HEENT: Head atraumatic, MMM, neck supple Cardiovascular: regular rate and rhythm, no murmurs/rubs/gallops, no peripheral edema Respiratory: Normal work of breathing. Clear to auscultation bilaterally, no crackles, wheezes, norrhonchi Abdomen: + bowel sounds, abdomen soft, nontender, nondistended Extremities: no deformities, normal ROM Integumentary: normal skin color, texture, and turgor. No rashes or lesions. Neurological: Sleeping, wakes to voice and opens eyes but falls back asleep. Moving all extremitiesin response to touch Psych: unable to assess REVIEW OF LABORATORY, PATHOLOGY, AND RADIOLOGY DATA: Lab results: All labs reviewed with pertinent positives in the A & P Primary care physician: No primary care provider on file. Attending Physician: Zac Churchill MD Wilcox, Kathleen A, MD, 11/12/2023 10:07 AM Total time spent on this encounter, on the date of service, including pre-visit review of separately obtained history, [id number] interaction performing medically appropriate physical exam, patientcounseling/education, interpretation of diagnostic results, care coordination and documentation was60 minutes. documented in this encounter OR Notes * OR Surgeon - Che Palomo DPM - 11/17/2023 10:32 AM CDT Images from the original note were not included. Podiatric Surgery Operative Report Matt Low : 1980 Sex: male OR Date: 11/17/2023 Surgeon: Che Palomo D.P.MVj Pre-Op Diagnosis: Gangrene left hallux Daily tobacco use Post-Op Diagnosis: Same Procedure(s) performed: Hallux amputation, left foot Pathology/Microbiology: Soft tissue left hallux dirty microbiology Soft tissue left hallux clean microbiology Pathology left hallux Anesthesia: MAC with local Hemostasis: Local control no tourniquet used due to concern of peripheral vascular disease EBL: 35 Materials/Implants: None Intraoperative Findings: Purulent drainage distal to the IPJ. Necrotic head of the proximal phalanx of the left hallux. Upondisarticulation of the left hallux the metatarsal head is clean, white and hard. There was no proximal tracking of the infection Patient I/O: Intake: per anesthesia record Output:per anesthesia record Complications: None INDICATIONS FOR THE OPERATION: 43 y.o. male admitted to the hospital with Demar's gangrene and was found yesterday to have a possible gas-forming infection to his left hallux. The patient was made aware of the procedure, including its risks and complications, which are included, but not limited to, pain, swelling, infection, wound dehiscence, numbness, tingling, more proximal amputation, anesthesia complication, and need for future procedures at a later date. The patient consented to the procedures with verbal and writtenconsent, and all questions of the patient were answered. Discussed the possibility of a serial procedure depending on the extent of the infection found today and surgery. DESCRIPTION OF THE PROCEDURE: Patient identified in the preoperative holding area. Surgical site marked, extremity initialed and consent signed/confirmed. The patient was brought into the OR (Operating Room), placed in supine position on the Operating Room table. MAC anesthesia was administered. Local anesthetic injection was performed using 12 cc of 0.5% Marcaine plain. Next the foot and leg were prepped and draped in sterile aseptic manner. A time out was performed to identify the patient and correct surgical site. No tourniquet was used for the duration of the case Attention then directed to the left hallux where gangrene of the hallux was present to the level ofthe IPJ. There was yellow-green purulence present. Incision planning takes place with considerationfor areas of devitalized tissue, location of the ulceration . A racquet type incision was made distal. These incisions are made down to bone, just proximal to the metatarsophalangeal joint medially. The hallux is then disarticulated at the metatarsophalangeal joint and sent to pathology. Soft tissue distally was sent for dirty culture and clean margin sent as clean tissue for culture and sensitivity testing. The remaining portion of the metatarsal head was evaluated and found to be viable, which correlateswith recent imaging. Hemostasis achieved with electrocautery. Skin edges were modified with a #15 blade to allow for closure. The wound is irrigated with copious amounts of sterile saline. Deep closure with 2-0 Vicryl plus, wound edges are reapproximated with 3-0 prolene suture in mattress and interrupted fashion. Sterile dressings applied starting with betadine-soaked adaptic, 4x4s, archana. POST-OPERATIVE COURSE: The patient tolerated the procedure [...] Surgery Clinic until healing has been obtained. Che Palomo DPM, 11/17/2023 11:46 AM * OR Surgeon - Donovan Sloan MD - 11/11/2023 3:41 PM CDT Operative Report - PGY2 [facility] Matt Anne : 1980 Sex: M Procedure: Sharp excisional debridement of perineal necrotizing fasciitis Pre-operative Diagnosis: Perineal necrotizing fasciitis Post-operative Diagnosis: Perineal necrotizing fasciitis Surgeon(s): Donovan Sloan MD; Kathy Nichols MD; Lor Vargas MD; Alexandra Ramírez MD Anesthesia: General endotracheal anesthesia Procedure Details The risks, benefits, complications, treatment options, and expected outcomes were discussed with the patient. The possibilities of reaction to medication, pulmonary aspiration, bleeding, infection, the need for additional procedures, failure to diagnose a condition, and creating a complication requiring transfusion or operation were discussed with the patient. The patient concurred with the proposed plan, giving informed consent. The site of surgery properly noted/marked. The patient was taken to the OR identified as Matt Low and the procedure and site verified by all present. A Time Out was held and the above information confirmed. After induction of anesthesia, the previous dressings were removed and the open wound was prepped and draped in the usual fashion. A surgical timeout was then performed to properly identify the patient, the operative site, and the procedure to be performed. A combination of electrocautery and Ambriz scissors were used to debride the non-viable tissue down to the level of healthy bleeding tissue. Total debridement of tissue was 10 cm2. The obvious areas of infection did not extend to the anus. Once all obvious necrotic tissue was excised, hemostasis was achieved and Vashe soaked dressings were applied. Final dimensions 30cm x 15cm x 10cm. Findings: Sharp excisional debridement of open groin wound down to the level of the muscle and fascia of perineum, 10 cm 2, total wound measured 30cm x 15cm x 10cm. Minimal necrotic tissue, appeared grossly uninfected. Estimated Blood Loss: 2mL Drains: None Total IV Fluids: See MAR Specimens: None Complications: None Disposition: Patient transferred to PACU hemodynamically stable Kathy Nichols MD General Surgery Resident, PGY-2 Faculty Addendum: My signature attests that I was present for the espitia or critical portion of this procedure. I was immediately available or had arranged immediate staff availability for all the noncritical or nonkey portions of the entire procedure. Donovan Sloan MD, 11/11/2023 7:46 PM * OR Surgeon - Fermin Osborn MD - 11/10/2023 6:07 PM CDT OPERATIVE REPORT - PGY5 [facility] Matt Low : 1980 Sex: male Procedure: Debridement of perineal necrotizing fasciitis Pre-operative Diagnosis: Perineal necrotizing fasciitis Post-operative Diagnosis: Perineal necrotizing fasciitis Surgeons: Surgeons and Role: * Zac Churchill MD - Primary * Fermin Osborn MD - Resident - Assisting Anesthesia: General endotracheal anesthesia Indications: 43 year old male with PMH of DM2 who presented with perineal necrotizing fasciitis, requiring emergent debridement. The risks, benefits, and alternatives to the aforementioned operation were discussed with the patient, and the patient provided written informed consent. The risks that were discussed included, but were not exclusive to, the following: bleeding, infection, adjacent structural injury, anesthetic complications. Findings: Sharp excisional debridement down to the level of the muscle and fascia of necrotic tissue in the perineum. Purulent and necrotic tissue sent for culture. Incision included left testicle which appeared grossly uninfected, counter incision made over right testicle, appeared grossly uninfected. Final dimensions 30cm x 15cm x 10cm. Procedure Details: The patient was met in the preoperative processing area. Surgical informed consent was confirmed, and the operative site was marked. The patient received the appropriate preoperative antibiotics. The patient was then brought into the operative suite and placed in a supine position on the operating table. The patient was induced without complication under a general anesthetic. The patient was then prepped and draped in the usual sterile fashion. A surgical timeout was then performed to properly identify the patient, the operative site, and the procedure to be performed. Black blisters were noted over the perineum. Electrocautery was used to incise the skin and subcutaneous tissue over the perineum, and necrotic muscle and fascia were encountered. A combination of electrocautery and Ambriz scissors were used to debride the non-viable tissue down to the level of healthy bleeding tissue. The obvious areas of infection did not extend to the anus. The right and left scrotum were explored and neither testicle appeared grossly infected. Once all obvious necrotic tissuewas excised, hemostasis was achieved and betadine soaked gauze dressings were applied. Final dimensions 30cm x 15cm x 10cm. Drains: None Specimens: Swab and tissue for culture Wound class: Infected Estimated Blood Loss: 150 ml Dispostion: The patient was awakened, extubated, and brought out to the post- anesthesia care unit in satisfactory condition. Fermin Osborn MD, 11/11/2023 1:09 AM PGY-5 General Surgery Associated attestation - Zac Churchill MD - 11/15/2023 2:04 PM CDT My signature attests that I was present for the espitia or critical portion of this procedure. I was immediately available or had arranged immediate staff availability for all the non-critical or non-keyportions of the entire procedure. Zac Churchill MD, 11/15/2023 2:04 PM documented in this encounter ED Notes * Monica Sheppard RN - 11/10/2023 2:28 PM CDT Pt BIBA as transfer from [place]. 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 Pt given Ertapenem 1gm and Insulin 10 units LEI MAKER. BS 400 at outside hospital. Pt is a diabetic. Hx of TBI and pt lives in an assisted living facility. Pt alert on arrival. Skin hot to touch. Pt with swelling and darkened areas noted to scrotum/peritoneum. Pt also with black lt great toe. documented in this encounter Miscellaneous Notes * Discharge non-MD/non-MIRI Summaries - Kenrick Fisher Chi, PT - 11/25/2023 9:11 AM CDT Physical Therapy Inpatient Discharge Summary Stephanie Low [id number] PT Discharge Recommendations DC Recommendations: Post-acute placement recommended. (11/22/23 1400) Post Discharge follow-up: PT at post-acute placement (11/22/231399) Equipment Status: Equipment needs being determined;Equipment issued (11/22/231399) PT Equipment Recommended: Front wheeled walker (11/22/231399) Recommend PM&R consult (PT): * (No) (11/18/23 151) Diagnosis Patient Active Problem List Diagnosis 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HHS) Hyperglycemia At risk for sexually transmitted infection due to unprotected sex Precautions: Weight Bearing Restrictions: Heel touch WB on L LE in post-op shoe- s/p L great toe amputation. (Per podiatry- WB restriction for at least 2 weeks from DOS: 11/17/2023.) (11/22/23 1400) Wound in groin Complies w/ Weight Bearing?: No (11/22/231399) Pain at final sessions: Pain Rating With Activity (Numeric): 0 (11/18/23 1510) Transfer & Bed Mobility Roll Right: Modified independent (11/18/23 1510) Supine to/from Sit: Modified independent (11/22/23 1400) Sit to/from Stand: Modified independent (11/22/23 1400) Scooting: Modified independent (back in recliner when sitting in recliner- Mod I) (11/15/23 1100) Gait Distance (m): 50 m (11/22/23 1400) Device: None;Front wheeled walker (11/22/23 1400) Assistance: Stand by assist (11/22/23 1400) Gait Quality (General): Slowed;Unsteady (11/22/23 1400) Status of progress toward established goals: Had been making progress towards the therapy goals. Problem: Decreased Transfer Skills Goal: Patient will transfer sit to/from stand Description: Patient will transfer sit to/from stand while Heel touch WB on L LE in post-op shoe with (6) Modified [place] in order to mobilize in home by 12/09/23. Outcome: Met Problem: Decreased Ambulatory Skills Goal: Improve gait Description: Ambulate 100 meters using an appropriate AD while heel touch WB on L LE in post-op shoe w Mod I by 12/09/2023 in order to mobilize in home and community by 11/28/23. Outcome: In progress Problem: Decreased Functional Motor Skills - PT Goal: Patient demonstrates improved balance Description: Pt will be able to demonstrate 45/56 or greater on [place] Balance test and 24/28 on [place] in order to reduce risk of falls at home by 12/09/23. Outcome: In progress Problem: Decreased Transfer Skills Goal: Patient will transfer supine to/from sit Description: Patient will transfer supine to/from sit with Mod I by 12/02/2023 without using a bed rail for decreased caregiver burden. Outcome: Met Plan: Discharge to Rehab Facility Physical Therapist: Kenrick Fisher, PT Date: 11/24/2023 Pager: [employer] PT Department * Discharge non-MD/non-MIRI Summaries - Lior Azul - 11/25/2023 7:36 AM CDT Summary: DC to SNF Care Coordination Discharge Note Expected DC Date: 11/25/23 Expected DC Time: 13h30 Final Discharge Destination: Selected Continued Care - Admitted Since 11/10/2023 Destination Coordination complete. Service Provider Selected Services Address Phone Fax Patient Preferred [facility] [place] [phone] [facility] [id number] -- Summary: Insurance approved Patient has been accepted to continue rehabing at the aforementioned post acute facility. Patient is on board with plan. CC spoke with patient in person in the room Secretary Bookkeeper also confirmed with Minnie REGALADO at . Also, DC summary faxed to [phone], via [employer]. WC ride has been ordered. [employer] RETROFIT DESIGNER ([employer] Surgical Dental Assistant) will schedule. Check [id number] for confirmation. Medical team is aware. They will work writing DC orders. CC sent DC orders to SNF by Epic fax. Medical team is aware any controlled substances must be printed and signed to be sent in physical form to the TCU. PLEASE MAKE SURE RX IS COMPLETE. MAKE SURE QUANTITY IS ADDED. Also, PSC/DRAW OPERATOR/RN will fax it to TCU olga (this is required so in case of pain during transport, pain control can be addressed) Bedside nurse: please confirm this is done. A [employer] thread has been started. CC will continue to follow until DC. Please use [employer] for any further questions. * Nursing Assessment - Sheila Dias RN - 11/25/2023 2:40 AM CDT Nursing Assessment Head to Toe Head to Toe Assessment Shift Summary Pt A/O and makes needs known. VSS on RA. Pt independent in room. Dressing on L foot is CDI. Groin dressing is intact. Pt slept well in between cares. Will continue to monitor and follow POC. Neurologic/Cognitive Within Defined Limits Cognition: poor judgement/safety awareness and known developmental delay Orientation: disoriented to time HEENT Within Defined Limits Cardiac Within Defined Limits Respiratory Within defined limits Neurovascular Within Defined Limits Gastrointestinal Assessment Within Defined Limits except for: Abdominal appearance: Obese Additional GI Signs/Symptoms: diarrhea Stool/Urine (mL): 0 mL (11/17/231999) Stool (unmeasured): 1 (11/23/23 1507) Stool Amount: small (11/23/23 1507) Stool Color: light brown (11/15/23 1700) Stool Consistency: soft (11/23/23 1507) Liquid Stool (mL): 0 mL (11/17/231999) Genitourinary Within Defined Limits Musculoskeletal Assessment Within Defined Limits except for: Musculoskeletal Assessment: General Mobility: Generalized weakness Integumentary Within Defined Limits Patient Lines/Drains/Airways Status Active LDAs Name Placement date Placement time Site Days Peripheral IV 11/13/23 20 gauge;1 3/4 in length Anterior;Left Forearm 11/13/23 0929 -- 11 Wound 11/10/23 Incision Perineum 11/10/23 170 Perineum 14 Wound 11/10/23 Foot Left 11/10/23 1839 Foot 14 Psychosocial Within Defined Limits * Nursing Assessment - Demetra Brito RN - 11/24/2023 5:56 PM CDT Nursing Assessment Head to Toe Head to Toe Assessment Shift Summary Pt A&O, can make needs known. Endorsed pain in groin 07/17, denied need for PRN pain medications. Utilizing nicotine gum frequently. Left room twice. Groin wound changed by MD, toe wound changed by nurse, pt tolerated both well. Discharge possible tomorrow, waiting for insurance approval. Demetra Brito RN, 11/24/2023 5:58 PM Neurologic/Cognitive Assessment Within Defined Limits except for: Comments: Hx of TBI HEENT Within Defined Limits Cardiac Within Defined Limits Respiratory Within defined limits Neurovascular Assessment Within Defined Limits except for: Neurovascular LLE Sensation: Sensation decreased Gastrointestinal Within Defined Limits Stool/Urine (mL): 0 mL (11/17/231999) Stool (unmeasured): 1 (11/23/23 1507) Stool Amount: small (11/23/23 1507) Stool Color: light brown (11/15/23 1700) Stool Consistency: soft (11/23/23 1507) Liquid Stool (mL): 0 mL (11/17/231999) Genitourinary Within Defined Limits Musculoskeletal Assessment Within Defined Limits except for: Musculoskeletal Assessment: General Mobility: Generalized weakness Range of Motion: LLE - brace/immobilizer/splint/sling/cast and moderately impaired Integumentary Assessment Within Defined Limits except for: Skin Assessment Integrity - see Avatar LDA documentation Patient Lines/Drains/Airways Status Active LDAs Name Placement date Placement time Site Days Peripheral IV 11/13/23 20 gauge;1 3/4 in length Anterior;Left Forearm 11/13/23 0929 -- 11 Wound 11/10/23 Incision Perineum 11/10/23 1707 Perineum 14 Wound 11/10/23 Foot Left 11/10/23 1839 Foot 13 Psychosocial Within Defined Limits * Discharge non-MD/non-MIRI Summaries - Chayo Townsend, OTR/L - 11/24/2023 12:59 PM CDT [facility] Occupational Therapy Discharge Summary Stephanie Low 11/24/2023 OT Discharge Recommendations Discharge Recommendations: Post-acute placement recommended Level/type of placement (OT): Sub-Acute Rehab facility Barriers to discharge to home/community: Caregiver availability not yet confirmed;Insufficient activity tolerance;Poor insight / safety judgement Supervision / Assistance Recommended for home DC: Yes Physical assistance recommended for (OT): Lower body dressing;Toileting;Bathing;IADL's Post Discharge Follow-up: OT at post-acute placement Equipment Recommended: Equipment needs to be determined at next level of care Equipment Status: Plan: DC Inpatient OT as patient is being discharged to subacute rehab. Patient Name: Stephanie Low MR#: [id number] Date of : 1980 Age: 43 y.o. Hospital Admit date: 11/10/2023 Restrictions / Precautions at Discharge: Activity Level: Up Ad Celia (11/13/23 1100) General Precautions: Falls Risk (11/13/23 1100) Current Medical History / Hospital Course: See MD MANN summary for details. Patient Active Problem List Diagnosis 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HHS) Hyperglycemia At risk for sexually transmitted infection due to unprotected sex Past Medical History: No past medical history on file. Living Situation/Social History: Information obtained From: patient;chart (11/13/23 1100) Help Available at home: yes, 24 hour assist (assumed- pt unable to confirm this date) (11/13/23 1100) Patient is living in a/an : fpc (11/13/23 1100) Prior Level of Function (LEI MAKER): ADLs/IADLs: Received assistance from staff at residence (11/15/23 1300) Assistance with:: lower body dressing;toileting;bathing;meal preparation;shopping;laundry;cleaning;medication management (11/15/23 1300) Functional Mobility: Independent without assistive device (11/15/23 1300) Functional Status at Discharge: Activities of Daily Living Grooming: Supervision/Stand by assist (11/24/23 1200) Grooming Comments: standing at sink for oral cares (11/24/23 1200) Toileting: Minimal assist (75% patient effort) (11/15/23 1300) Toileting Comments: declined to complete during session, Ax1 with nursing (11/18/23 151) Bathing: Supervision/Stand by assist (11/24/23 1200) Bathing Comments: to complete UB bed bath seated in recliner (11/24/23 1200) Upper Body Dressing: Minimal assist (75% patient effort) (11/24/23 1200) Upper Body Dressing Comments: gown management (11/24/23 1200) Lower Body Dressing: Maximal assist (25% patient effort) (11/18/23 151) Lower Body Dressing Comments: to don shoe on R foot, surgical shoe in place on L at start of session (11/18/231509) Functional Mobility Roll Left : Moderate assist (50% patient effort) (11/13/23 1100) Roll Right : Moderate assist (50% patient effort) (11/13/23 1100) Supine to/from Sit: Modified independence (11/24/23 1200) Sit to/from Stand : Verbal cues;Supervision/Stand by assist (completes multiple repetitions with cues for heel touch weight bearing) (11/24/23 1200) Sit to/from Stand - Method: From standard seat height;w/o Assistive device (11/24/23 1200) Bed to/from Chair: Minimal assist (75% patient effort) (CGA) (11/19/23 0900) Bed to/from Chair - Method: Standing pivot w/ AD (11/19/23 09) Toilet Transfer: Supervision/Stand by assist (11/24/23 1200) Toilet Transfer- Method: Grab bar (11/24/23 1200) Bed to Bathroom: Supervision/Stand by assist;Verbal cues (11/24/23 1200) Bed to Bathroom- Method: None (11/24/23 1200) Functional Mobility in Room- Task Done: walk in hallway for ADL endurance (11/18/23 151) Functional Mobility in Room: Minimal assist (75% patient effort) (11/18/23 151) Functional Mobility in Room- Method: None (11/18/231509) Motor / Splints: Cognition Mental Status: Alert;Cooperative;Follows 1 step direction;Oriented x 3 (11/24/23 1200) Delirium Assessment: Delirium Assessment - CAM Short (Confusion Assessment Method) Acute onset OR fluctuating course: No (11/19/23 0900) Inattention: Yes (11/13/23 1100) Disorganized Thinking: No (11/24/23 1200) Altered level of consciousness: No (11/24/23 1200) CAM result: Negative (11/19/23 09) Visual Perception: Patient / Caregiver Training: See Care Plan for progress towards goals. Occupational Therapist: Chayo Townsend OTR/Brian OT Department * Nursing Assessment - Demetra Brito RN - 11/24/2023 10:30 AM CDT Nursing Assessment Head to Toe Head to Toe Assessment Shift Summary Pt A&O, can make needs known. Endorse pain in groin 10/17. Utilizing nicotine gum frequently. Possible discharge later today to TCU. Demetra Brito RN, 11/24/2023 10:34 AM Neurologic/Cognitive Assessment Within Defined Limits except for: Comments: Hx of TBI HEENT Within Defined Limits Cardiac Within Defined Limits Respiratory Within defined limits Neurovascular Assessment Within Defined Limits except for: Neurovascular LLE Sensation: Sensation decreased Gastrointestinal Within Defined Limits Stool/Urine (mL): 0 mL (11/17/231999) Stool (unmeasured): 1 (11/23/23899) Stool Amount: small (11/15/23 1700) Stool Color: light brown (11/15/23 1700) Stool Consistency: loose (per pt) (11/23/23899) Liquid Stool (mL): 0 mL (11/17/231999) Genitourinary Within Defined Limits Musculoskeletal Assessment Within Defined Limits except for: Musculoskeletal Assessment: General Mobility: Generalized weakness Range of Motion: LLE - brace/immobilizer/splint/sling/cast and moderately impaired Integumentary Assessment Within Defined Limits except for: Skin Assessment Integrity - see Avatar LDA documentation Patient Lines/Drains/Airways Status Active LDAs Name Placement date Placement time Site Days Peripheral IV 11/13/23 20 gauge;1 3/4 in length Anterior;Left Forearm 07/06/24 0929 -- 11 Wound 11/10/23 Incision Perineum 11/10/23 1707 Perineum 13 Wound 11/10/23 Foot Left 11/10/23 1839 Foot 13 Psychosocial Within Defined Limits * Nursing Assessment - Deja Vasquez RN - 11/24/2023 1:35 AM CDT Nursing Assessment Head to Toe Head to Toe Assessment Shift Summary Pt is alert and oriented x4. Able to make needs known. Denies pain. Neuro's unchanged. Dressings C/D/I. No BM this shift. LLE boot on while in bed. Neurologic/Cognitive Within Defined Limits HEENT Within Defined Limits Cardiac Within Defined Limits Respiratory Within defined limits Neurovascular Within Defined Limits Gastrointestinal Within Defined Limits Stool/Urine (mL): 0 mL (11/17/231999) Stool (unmeasured): 1 (11/23/23899) Stool Amount: small (11/15/231699) Stool Color: light brown (11/15/231699) Stool Consistency: loose (per pt) (11/23/23899) Liquid Stool (mL): 0 mL (11/17/231999) Genitourinary Within Defined Limits Musculoskeletal Assessment Within Defined Limits except for: Musculoskeletal Assessment: General Mobility: Generalized weakness Range of Motion: LLE - amputation Integumentary Assessment Within Defined Limits except for: Skin Assessment Integrity - see Avatar LDA documentation Patient Lines/Drains/Airways Status Active LDAs Name Placement date Placement time Site Days Peripheral IV 11/13/23 20 gauge;1 3/4 in length Anterior;Left Forearm 11/13/23 09 -- 10 Wound 11/10/23 Incision Perineum 11/10/23 1707 Perineum 13 Wound 11/10/23 Foot Left 11/10/23 1839 Foot 13 Psychosocial Within Defined Limits * Nursing Assessment - Irene Min RN - 11/23/2023 10:05 PM CDT Nursing Assessment Head to Toe Head to Toe Assessment Shift Summary Background: gangrene Neuro Status: intact Resp considerations: RA Skin: scrotal wound; L foot/toe amputation wound Mobility: mildly impaired. Pain: denies Medication specifics: whole with thin liquids I/O: carb count Restrictions: needs assistance when ambulating out of room Precautions: contact for MRSA Summary: A/OX4. Able to make needs known. Non-compliant with L boot while in bed. Using nicotine gum. Discussed needing assistance to ambulate far distances; activity order states that he cannot leave the floor unassisted; no elopement orders placed. Patient has not asked or attempted to leave the unit. Irene Min, SABINE, 11/23/2023 10:15 PM Neurologic/Cognitive Assessment Within Defined Limits except for: Cognition: poor judgement/safety awareness HEENT Within Defined Limits Cardiac Within Defined Limits Respiratory Within defined limits Neurovascular Within Defined Limits Gastrointestinal Assessment Within Defined Limits except for: Comments: Wound dressing change with every BM Stool/Urine (mL): 0 mL (11/17/231999) Stool (unmeasured): 1 (11/23/23899) Stool Amount: small (11/15/230) Stool Color: light brown (11/15/230) Stool Consistency: loose (per pt) (11/23/23899) Liquid Stool (mL): 0 mL (11/17/231999) Genitourinary Within Defined Limits Musculoskeletal Assessment Within Defined Limits except for: Musculoskeletal Assessment: General Mobility: Generalized weakness Range of Motion: LLE - amputation Comments: Toe amputation/boot to wear Integumentary Assessment Within Defined Limits except for: Skin Assessment Integrity - see Avatar LDA documentation Patient Lines/Drains/Airways Status Active LDAs Name Placement date Placement time Site Days Peripheral IV 11/13/23 20 gauge;1 3/4 in length Anterior;Left Forearm 11/13/23 0929 -- 10 Wound 11/10/23 Incision Perineum 11/10/23 1707 Perineum 13 Wound 11/10/23 Foot Left 11/10/23 1839 Foot 13 Psychosocial Within Defined Limits * Utilization Management - Johanne Cormier RN - 11/23/2023 4:39 PM CDT Per CLIENT RELATIONS SPECIALIST no longer meets IP criteria, documentation in chart indicating ready to discharge, no message sent to provider or CC. * Nursing Assessment - Demetra Brito RN - 11/23/2023 4:27 PM CDT Nursing Assessment Head to Toe Head to Toe Assessment Shift Summary Pt A&O can make needs known. Went outside 2 times today. tolerated dressing changes well, premedicated with oxycodone, otherwise did not need PRN medications. Bowel medications held this morning d/t loose stool. 1800 Patient told nurse that while walking outside he tripped and fell onto his L knee. Small abrasion noted on knee, cleaned with saline and left open to air. made aware and updated activity orders. Demetra Brito RN, 11/23/2023 7:03 PM Neurologic/Cognitive Within Defined Limits HEENT Within Defined Limits Cardiac Within Defined Limits Respiratory Within defined limits Neurovascular Within Defined Limits Gastrointestinal Assessment Within Defined Limits except for: Abdominal appearance: Obese Additional GI Signs/Symptoms: diarrhea Stool/Urine (mL): 0 mL (11/17/231999) Stool (unmeasured): 1 (11/23/23899) Stool Amount: small (11/15/230) Stool Color: light brown (11/15/230) Stool Consistency: loose (per pt) (11/23/23899) Liquid Stool (mL): 0 mL (11/17/231999) Genitourinary Within Defined Limits Musculoskeletal Assessment Within Defined Limits except for: Musculoskeletal Assessment: General Mobility: Generalized weakness Range of Motion: LLE - brace/immobilizer/splint/sling/cast and amputation Comments: Left big toe amp Integumentary Assessment Within Defined Limits except for: Skin Assessment Integrity - see Avatar LDA documentation Patient Lines/Drains/Airways Status Active LDAs Name Placement date Placement time Site Days Peripheral IV 11/13/23 20 gauge;1 3/4 in length Anterior;Left Forearm 11/13/23 0929 -- 10 Wound 11/10/23 Incision Perineum 11/10/23 1707 Perineum 12 Wound 11/10/23 Foot Left 11/10/23 1839 Foot 12 Psychosocial Within Defined Limits * Nursing Assessment - John Taylor RN - 11/23/2023 3:08 PM CDT Nursing Assessment Head to Toe Head to Toe Assessment Shift Summary Pt A/Ox4, takes meds whole, able to make needs known. Left foot and groin dressings both changed today. Pt will likely be requesting more nicotine gum and/or patches than before due to running out ofcigarettes. Pt has stated a desire to take a shower, nurse spoke with pt about options including bed bath. Neurologic/Cognitive Within Defined Limits HEENT Within Defined Limits Cardiac Within Defined Limits Respiratory Within defined limits Neurovascular Within Defined Limits Gastrointestinal Within Defined Limits Stool/Urine (mL): 0 mL (11/17/231999) Stool (unmeasured): 1 (11/23/23899) Stool Amount: small (11/15/231699) Stool Color: light brown (11/15/230) Stool Consistency: loose (per pt) (11/23/23899) Liquid Stool (mL): 0 mL (11/17/231999) Genitourinary Within Defined Limits Musculoskeletal Assessment Within Defined Limits except for: Musculoskeletal Assessment: General Mobility: Mildly impaired Range of Motion: LLE - brace/immobilizer/splint/sling/cast Integumentary Assessment Within Defined Limits except for: Skin Assessment Integrity - see Avatar LDA documentation Patient Lines/Drains/Airways Status Active LDAs Name Placement date Placement time Site Days Peripheral IV 11/13/23 20 gauge;1 3/4 in length Anterior;Left Forearm 11/13/23 0929 -- 10 Wound 11/10/23 Incision Perineum 11/10/23 1707 Perineum 12 Wound 11/10/23 Foot Left 11/10/23 1839 Foot 12 Psychosocial Within Defined Limits * Nursing Assessment - Demetra Brito RN - 11/23/2023 2:42 PM CDT Nursing Assessment Head to Toe Head to Toe Assessment Shift Summary Shift Summary Neurologic/Cognitive Within Defined Limits HEENT Within Defined Limits Cardiac Within Defined Limits Respiratory Within defined limits Neurovascular Within Defined Limits Gastrointestinal Assessment Within Defined Limits except for: Additional GI Signs/Symptoms: diarrhea Stool/Urine (mL): 0 mL (11/17/231999) Stool (unmeasured): 1 (11/23/23899) Stool Amount: small (11/15/231699) Stool Color: light brown (11/15/231699) Stool Consistency: loose (per pt) (11/23/23899) Liquid Stool (mL): 0 mL (11/17/231999) Genitourinary Within Defined Limits Musculoskeletal Assessment Within Defined Limits except for: Musculoskeletal Assessment: General Mobility: Generalized weakness Range of Motion: LLE - brace/immobilizer/splint/sling/cast and amputation Comments: Left big toe amp Integumentary Assessment Within Defined Limits except for: Skin Assessment Integrity - see Avatar LDA documentation Patient Lines/Drains/Airways Status Active LDAs Name Placement date Placement time Site Days Peripheral IV 11/13/23 20 gauge;1 3/4 in length Anterior;Left Forearm 11/13/23 0929 -- 10 Wound 11/10/23 Incision Perineum 11/10/23 1707 Perineum 12 Wound 11/10/23 Foot Left 11/10/23 1839 Foot 12 Psychosocial Within Defined Limits * Nursing Assessment - Mabel Mathews RN - 11/23/2023 1:06 AM CDT Nursing Assessment Head to Toe Head to Toe Assessment Shift Summary [id number] Pt is a/o X4 and can make needs known. Pt is minimal assist with walker to transfer. Pt has dressing change on left foot for left toe amputation and wound dressings to the groin area. Pt takes med's whole, VSS, on RA, and had no c/o of pain, dizziness, nausea, diarrhea, and vomiting. CMS and nuero's are intact and pt is carb count diabetic. Pt appeared to sleep during the shift. Will continue to monitor. Neurologic/Cognitive Assessment Within Defined Limits except for: Cognition: poor judgement/safety awareness and poor attention/concentration Level of Consciousness: Lethargic Arousal Level: Arouses to voice Frequent Neuro Assessments have been documented in the flowsheets HEENT Within Defined Limits Cardiac Within Defined Limits Respiratory Within defined limits Neurovascular Assessment Within Defined Limits except for: Neurovascular RUE Sensation: Sensation decreased Neurovascular RLE Sensation: Sensation decreased Gastrointestinal Within Defined Limits Stool/Urine (mL): 0 mL (11/17/231999) Stool (unmeasured): 1 (per pt) (11/21/23744) Stool Amount: small (11/15/23 170) Stool Color: light brown (11/15/23 170) Stool Consistency: soft (11/15/23 170) Liquid Stool (mL): 0 mL (11/17/231999) Genitourinary Within Defined Limits Musculoskeletal Assessment Within Defined Limits except for: Musculoskeletal Assessment: General Mobility: Generalized weakness and mildly impaired Range of Motion: General - mildly impaired Integumentary Assessment Within Defined Limits except for: Skin Assessment Integrity - see Avatar LDA documentation Patient Lines/Drains/Airways Status Active LDAs Name Placement date Placement time Site Days Peripheral IV 11/13/23 20 gauge;1 3/4 in length Anterior;Left Forearm 11/13/23 0929 -- 9 Wound 11/10/23 Incision Perineum 11/10/23 1707 Perineum 12 Wound 11/10/23 Foot Left 11/10/23 1839 Foot 12 Psychosocial Within Defined Limits * Nursing Assessment - Leilani Sim RN - 11/22/2023 5:00 PM CDT Nursing Assessment Head to Toe Head to Toe Assessment Shift Summary Neurologic/Cognitive Within Defined Limits HEENT Within Defined Limits Cardiac Within Defined Limits Respiratory Within defined limits Neurovascular Assessment Within Defined Limits except for: Neurovascular LLE Capillary Refill: Unable to assess Femoral Pulse: unable to assess Popliteal: unable to assess Post Tibial Pulse: unable to assess Pedal Pulse: unable to assess Gastrointestinal Within Defined Limits Stool/Urine (mL): 0 mL (11/17/231999) Stool (unmeasured): 1 (per pt) (11/21/23744) Stool Amount: small (11/15/231699) Stool Color: light brown (11/15/23 1700) Stool Consistency: soft (11/15/23 1700) Liquid Stool (mL): 0 mL (11/17/231999) Genitourinary Within Defined Limits Musculoskeletal Assessment Within Defined Limits except for: Musculoskeletal Assessment: General Mobility: Mildly impaired Range of Motion: LLE - brace/immobilizer/splint/sling/cast and amputation Comments: Amputated big toe Integumentary Within Defined Limits Skin Assessment Integrity - see Avatar LDA documentation Patient Lines/Drains/Airways Status Active LDAs Name Placement date Placement time Site Days Peripheral IV 11/13/23 20 gauge;1 3/4 in length Anterior;Left Forearm 11/13/23 0929 -- 9 Wound 11/10/23 Incision Perineum 11/10/23 1707 Perineum 12 Wound 11/10/23 Foot Left 11/10/23 1839 Foot 12 Psychosocial Within Defined Limits Psychosocial Assessment: Observed Patient Behaviors: Pleasant Family Behavior: not present * Nursing Assessment - Leilani Sim RN - 11/22/2023 12:16 PM CDT Nursing Assessment Head to Toe Head to Toe Assessment Shift Summary A&Ox4. Up SBA, uses wheelchair to go outside to smoke. Able to make his needs. Calm, pleasant, and cooperative with all cares. C/O pain to groin, buttocks, and LLE/leg/big amputation toe. Rated pain at 6/10. Administered PRN 10 mg. Bp elevated, RA. Denies SOB, CP, and N/V. Neuro intact. Dressing change to LLE/Amputated big toe, groin, and bottocks completed. Voiding and drinking fluids. Call light within reach. Ate 100% of breakfast and lunch. Will continue to monitor with POC. Leilani Sim RN, 11/22/2023 12:34 PM Neurologic/Cognitive Within Defined Limits HEENT Within Defined Limits Cardiac Within Defined Limits Respiratory Within defined limits Neurovascular Assessment Within Defined Limits except for: Neurovascular LLE Capillary Refill: Unable to assess Femoral Pulse: unable to assess Popliteal: unable to assess Post Tibial Pulse: unable to assess Pedal Pulse: unable to assess Gastrointestinal Within Defined Limits Stool/Urine (mL): 0 mL (11/17/231999) Stool (unmeasured): 1 (per pt) (11/21/23 0745) Stool Amount: small (11/15/23 1700) Stool Color: light brown (11/15/23 1700) Stool Consistency: soft (11/15/23 170) Liquid Stool (mL): 0 mL (11/17/231999) Genitourinary Within Defined Limits Musculoskeletal Assessment Within Defined Limits except for: Musculoskeletal Assessment: General Mobility: Mildly impaired Range of Motion: LLE - brace/immobilizer/splint/sling/cast and amputation Comments: Amputated big toe Integumentary Within Defined Limits Skin Assessment Integrity - see Avatar LDA documentation Patient Lines/Drains/Airways Status Active LDAs Name Placement date Placement time Site Days Peripheral IV 11/13/23 20 gauge;1 3/4 in length Anterior;Left Forearm 11/13/23 0929 -- 9 Wound 11/10/23 Incision Perineum 11/10/23 1707 Perineum 11 Wound 11/10/23 Foot Left 11/10/23 1839 Foot 11 Psychosocial Within Defined Limits Psychosocial Assessment: Observed Patient Behaviors: Pleasant Family Behavior: not present * Nursing Assessment - Damari Brower, SABINE - 11/22/2023 6:58 AM CDT Nursing Assessment Head to Toe Head to Toe Assessment Shift Summary Pt is A/O x 4.Neuros are unremarkable. Able to make needs known. Vitally stable on RA. SBA w/ walker when OOB. Pt is complaint with cam boot. CMS is intact in BLE. Dressing to LE is intact. Denied pain. Dressing to left groin is intact. Pt would like dressing to be changed after he goes to the bathroom but does not know when he'll use the toilet. Current line is patent. Pt is continent of bowel and bladder. No BM this shift. Pt reported voiding without difficulties. Follow established POC. Damari Brower, RN, 11/22/2023 7:00 AM Neurologic/Cognitive Assessment Within Defined Limits except for: Cognition: poor judgement/safety awareness Comments: Known cognitive deficit. HEENT Assessment Within Defined Limits except for: Teeth Symptoms: Tooth/teeth missing Cardiac Within Defined Limits Respiratory Within defined limits Neurovascular Within Defined Limits Gastrointestinal Assessment Within Defined Limits except for: Abdominal appearance: Obese Stool/Urine (mL): 0 mL (11/17/231999) Stool (unmeasured): 1 (per pt) (11/21/23 0745) Stool Amount: small (11/15/231699) Stool Color: light brown (11/15/23 1700) Stool Consistency: soft (11/15/23 1700) Liquid Stool (mL): 0 mL (11/17/231999) Genitourinary Within Defined Limits Musculoskeletal Assessment Within Defined Limits except for: Musculoskeletal Assessment: General Mobility: Generalized weakness Range of Motion: LLE - mildly impaired Integumentary Assessment Within Defined Limits except for: Skin Assessment Integrity - see Avatar LDA documentation Patient Lines/Drains/Airways Status Active LDAs Name Placement date Placement time Site Days Peripheral IV 11/13/23 20 gauge;1 3/4 in length Anterior;Left Forearm 11/13/23 0929 -- 8 Wound 11/10/23 Incision Perineum 11/10/23 1707 Perineum 11 Wound 11/10/23 Foot Left 11/10/23 1839 Foot 11 Psychosocial Within Defined Limits * Nursing Assessment - John Taylor RN - 11/21/2023 9:40 PM CDT Nursing Assessment Head to Toe Head to Toe Assessment Shift Summary Pt A/Ox4, VSS on RA. Neuros intact, takes meds whole, able to make needs known. Pt able to get up from bed to chair or bathroom on his own, and uses a wheelchair to walk outside to smoke. Pt is willing to use nicotine gum. Dressing was changed after being soiled, which the pt reports seems to be the case every time he uses the restroom. John Taylor RN, 11/21/2023 9:44 PM Neurologic/Cognitive Within Defined Limits HEENT Within Defined Limits Cardiac Within Defined Limits Respiratory Within defined limits Neurovascular Assessment Within Defined Limits except for: Neurovascular LLE Capillary Refill: Unable to assess Femoral Pulse: unable to assess Popliteal: unable to assess Post Tibial Pulse: unable to assess Pedal Pulse: unable to assess Gastrointestinal Within Defined Limits Stool/Urine (mL): 0 mL (11/17/231999) Stool (unmeasured): 1 (per pt) (11/21/23744) Stool Amount: small (11/15/231699) Stool Color: light brown (11/15/231699) Stool Consistency: soft (11/15/231699) Liquid Stool (mL): 0 mL (11/17/231999) Genitourinary Within Defined Limits Musculoskeletal Assessment Within Defined Limits except for: Musculoskeletal Assessment: General Mobility: Mildly impaired Range of Motion: LLE - brace/immobilizer/splint/sling/cast Integumentary Within Defined Limits Skin Assessment Integrity - see Avatar LDA documentation Patient Lines/Drains/Airways Status Active LDAs Name Placement date Placement time Site Days Peripheral IV 11/13/23 20 gauge;1 3/4 in length Anterior;Left Forearm 11/13/23 0929 -- 8 Wound 11/10/23 Incision Perineum 11/10/23 170 Perineum 11 Wound 11/10/23 Foot Left 11/10/23 1839 Foot 11 Psychosocial Within Defined Limits * Nursing Assessment - Cami Vázquez RN - 11/21/2023 10:55 AM CDT Nursing Assessment Head to Toe Head to Toe Assessment Shift Summary Patient is AxOx4, has not used call light this shift. Rating pain 7/10 in the left groin area, oxycodone 5mg given once this shift. Denies pain after medication administration. Going outside to smokethis shift. Continues on carb counts. New orders for dressing change for left foot put in this shift, change completed by podiatry this morning. Patient received a complete bed bath and linen change.Hypertensive SBP 160, VSS on RA, neuros unchanged. Cami Vázquez RN, 11/21/2023 1:54 PM Neurologic/Cognitive Assessment Within Defined Limits except for: Level of Consciousness: Lethargic Comments: Known cognitive deficits HEENT Assessment Within Defined Limits except for: Teeth Symptoms: Tooth/teeth missing Cardiac Within Defined Limits Respiratory Within defined limits Neurovascular Within Defined Limits Gastrointestinal Within Defined Limits Stool/Urine (mL): 0 mL (11/17/231999) Stool (unmeasured): 1 (per pt) (07/14/24 0745) Stool Amount: small (11/15/23 1700) Stool Color: light brown (11/15/23 1700) Stool Consistency: soft (11/15/23 1700) Liquid Stool (mL): 0 mL (11/17/231999) Genitourinary Within Defined Limits Musculoskeletal Assessment Within Defined Limits except for: Musculoskeletal Assessment: General Mobility: Generalized weakness Integumentary Assessment Within Defined Limits except for: Skin Assessment Integrity - see Avatar LDA documentation Patient Lines/Drains/Airways Status Active LDAs Name Placement date Placement time Site Days Peripheral IV 11/13/23 20 gauge;1 3/4 in length Anterior;Left Forearm 11/13/23 0929 -- 8 Wound 11/10/23 Incision Perineum 11/10/23 170 Perineum 10 Wound 11/10/23 Foot Left 11/10/23 1839 Foot 10 Psychosocial Within Defined Limits * Nursing Assessment - Damari Brower, RN - 11/21/2023 5:21 AM CDT Nursing Assessment Head to Toe Head to Toe Assessment Shift Summary Pt is A/O x 4.Neuros are unremarkable. Able to make needs known. Vitally stable on RA. SBA w/ walker when OOB. Pt is complaint with cam boot. CMS is intact in BLE. Dressing to LE completed by podiatry. Denied pain. Dressing to left groin was removed. Pt prefers for dressing to be reapplied after breakfast. Current line is patent. Pt is continent of bowel and bladder. No BM this shift. Pt reportedvoiding without difficulties. Follow established POC. Damari Brower, RN, 11/21/2023 6:19 AM Neurologic/Cognitive Assessment Within Defined Limits except for: Cognition: poor judgement/safety awareness Comments: Known cognitive deficit. HEENT Assessment Within Defined Limits except for: Teeth Symptoms: Tooth/teeth missing Cardiac Within Defined Limits Respiratory Within defined limits Neurovascular Within Defined Limits Gastrointestinal Assessment Within Defined Limits except for: Abdominal appearance: Obese Stool/Urine (mL): 0 mL (11/17/231999) Stool (unmeasured): 1 (per patient) (11/19/23 0900) Stool Amount: small (07/08/24 1700) Stool Color: light brown (11/15/231699) Stool Consistency: soft (11/15/231699) Liquid Stool (mL): 0 mL (11/17/231999) Genitourinary Within Defined Limits Musculoskeletal Assessment Within Defined Limits except for: Musculoskeletal Assessment: General Mobility: Generalized weakness Range of Motion: LLE - mildly impaired Integumentary Assessment Within Defined Limits except for: Skin Assessment Integrity - see Avatar LDA documentation Patient Lines/Drains/Airways Status Active LDAs Name Placement date Placement time Site Days Peripheral IV 11/13/23 20 gauge;1 3/4 in length Anterior;Left Forearm 11/13/23 0929 -- 7 Wound 11/10/23 Incision Perineum 11/10/23 1707 Perineum 10 Wound 11/10/23 Foot Left 11/10/23 1839 Foot 10 Psychosocial Within Defined Limits * Nursing Assessment - John Taylor RN - 11/20/2023 9:41 PM CDT Nursing Assessment Head to Toe Head to Toe Assessment Shift Summary Pt A/Ox4, VSS on RA. Neuros intact Takes meds whole, able to make needs known. Pt able to get up from bed to chair or bathroom on his own, and uses a wheelchair to walk outside to smoke. Nicotine patches have been offered, pt refused. Education given. John Taylor RN, 11/20/2023 9:49 PM Neurologic/Cognitive Within Defined Limits HEENT Within Defined Limits Cardiac Within Defined Limits Respiratory Within defined limits Neurovascular Assessment Within Defined Limits except for: Neurovascular LLE Capillary Refill: Unable to assess Femoral Pulse: unable to assess Popliteal: unable to assess Post Tibial Pulse: unable to assess Pedal Pulse: unable to assess Gastrointestinal Within Defined Limits Stool/Urine (mL): 0 mL (11/17/231999) Stool (unmeasured): 1 (per patient) (11/19/23 09) Stool Amount: small (11/15/231699) Stool Color: light brown (11/15/231699) Stool Consistency: soft (11/15/231699) Liquid Stool (mL): 0 mL (11/17/231999) Genitourinary Assessment Within Defined Limits except for: Voiding: Incontinent Musculoskeletal Assessment Within Defined Limits except for: Musculoskeletal Assessment: General Mobility: Mildly impaired Range of Motion: LLE - brace/immobilizer/splint/sling/cast Integumentary Within Defined Limits Skin Assessment Integrity - see Avatar LDA documentation Patient Lines/Drains/Airways Status Active LDAs Name Placement date Placement time Site Days Peripheral IV 11/13/23 20 gauge;1 3/4 in length Anterior;Left Forearm 11/13/23 0929 -- 7 Wound 11/10/23 Incision Perineum 11/10/23 1707 Perineum 10 Wound 11/10/23 Foot Left 11/10/23 1839 Foot 10 Psychosocial Within Defined Limits * Nursing Assessment - Cami Vázquez RN - 11/20/2023 1:09 PM CDT Nursing Assessment Head to Toe Head to Toe Assessment Shift Summary Patient is AxOx4, has not used call light this shift. Bed alarm is on due to fall risk. Compliant with wearing left shoe.Patient has been going outside to smoke this shift, refused nicotine patch. Education on smoking cessation provided. Sleeping between cares. VSS on RA, neuros intact. Cami Vázquez RN, 11/20/2023 1:10 PM Neurologic/Cognitive Assessment Within Defined Limits except for: Level of Consciousness: Lethargic Comments: Known cognitive deficits HEENT Assessment Within Defined Limits except for: Teeth Symptoms: Tooth/teeth missing Cardiac Within Defined Limits Respiratory Within defined limits Neurovascular Within Defined Limits Gastrointestinal Within Defined Limits Stool/Urine (mL): 0 mL (11/17/231999) Stool (unmeasured): 1 (per patient) (11/19/23 0900) Stool Amount: small (11/15/23 1700) Stool Color: light brown (11/15/23 1700) Stool Consistency: soft (11/15/23 1700) Liquid Stool (mL): 0 mL (11/17/231999) Genitourinary Within Defined Limits Musculoskeletal Assessment Within Defined Limits except for: Musculoskeletal Assessment: General Mobility: Generalized weakness Integumentary Assessment Within Defined Limits except for: Skin Assessment Integrity - see Avatar LDA documentation Patient Lines/Drains/Airways Status Active LDAs Name Placement date Placement time Site Days Peripheral IV 11/13/23 20 gauge;1 3/4 in length Anterior;Left Forearm 11/13/23 0929 -- 7 Wound 11/10/23 Incision Perineum 11/10/23 170 Perineum 9 Wound 11/10/23 Foot Left 11/10/23 1839 Foot 9 Psychosocial Within Defined Limits * Nursing Assessment - Dwight Dennis RN - 11/19/2023 5:26 PM CDT Nursing Assessment Head to Toe Head to Toe Assessment Shift Summary Pt is A/O x 4. C/O pain 5/10 in L foot post surgery. Pt is complaint w/ cam boot and CMS is intact in BLE. Left groin wound dressing is C/D/I. SBA w/ walker when OOB. Pt was hypertensive after going downstairs to smoke w/ SBP > 180 and PRN hydralazine given x 1. Denies CP, palpitations, and SOB.Adequate PO intake. Voiding painlessly. Pleasant and cooperative w/ cares. Continue POC. Neurologic/Cognitive Assessment Within Defined Limits except for: Cognition: poor judgement/safety awareness Comments: Known cognitive deficit. HEENT Assessment Within Defined Limits except for: Teeth Symptoms: Tooth/teeth missing Cardiac Within Defined Limits Respiratory Within defined limits Neurovascular Within Defined Limits Gastrointestinal Assessment Within Defined Limits except for: Abdominal appearance: Obese Emesis: 0 mL (11/17/2023 8:00 PM) Stool/Urine (mL): 0 mL (11/17/231999) Stool (unmeasured): 1 (per patient) (11/19/23 0900) Stool Amount: small (11/15/23 1700) Stool Color: light brown (11/15/23 1700) Stool Consistency: soft (11/15/23 170) Liquid Stool (mL): 0 mL (11/17/231999) Genitourinary Within Defined Limits Musculoskeletal Assessment Within Defined Limits except for: Musculoskeletal Assessment: General Mobility: Generalized weakness Range of Motion: LLE - mildly impaired Integumentary Assessment Within Defined Limits except for: Skin Assessment Integrity - see Avatar LDA documentation Patient Lines/Drains/Airways Status Active LDAs Name Placement date Placement time Site Days Peripheral IV 11/13/23 20 gauge;1 3/4 in length Anterior;Left Forearm 11/13/2329 -- 6 Wound 11/10/23 Incision Perineum 11/10/23 1707 Perineum 9 Wound 11/10/23 Foot Left 11/10/23 1839 Foot 8 Psychosocial Within Defined Limits * Nursing Assessment - Cami Vázquez RN - 11/19/2023 11:19 AM CDT Nursing Assessment Head to Toe Head to Toe Assessment Shift Summary Patient is AxOx4, has not used call light this shift. Bed alarm is on due to fall risk. Patient hada BM this morning, dressing fell off. New dressing applied to groin. CMS intact bilaterally in lower extremities. Compliant with wearing left shoe. Worked with therapies this shift. VSS on RA, neurosintact. Cami Vázquez RN, 11/19/2023 11:24 AM Neurologic/Cognitive Assessment Within Defined Limits except for: Comments: Known cognitive deficits HEENT Assessment Within Defined Limits except for: Teeth Symptoms: Tooth/teeth missing Cardiac Within Defined Limits Respiratory Within defined limits Neurovascular Within Defined Limits Gastrointestinal Within Defined Limits Emesis: 0 mL (11/17/2023 8:00 PM) Stool/Urine (mL): 0 mL (11/17/231999) Stool (unmeasured): 1 (per patient) (11/19/23 0900) Stool Amount: small (11/15/23 1700) Stool Color: light brown (11/15/23 1700) Stool Consistency: soft (11/15/23 1700) Liquid Stool (mL): 0 mL (11/17/231999) Genitourinary Within Defined Limits Musculoskeletal Assessment Within Defined Limits except for: Musculoskeletal Assessment: General Mobility: Generalized weakness Integumentary Assessment Within Defined Limits except for: Skin Assessment Integrity - see Avatar LDA documentation Patient Lines/Drains/Airways Status Active LDAs Name Placement date Placement time Site Days Peripheral IV 11/13/23 20 gauge;1 3/4 in length Anterior;Left Forearm 11/13/23928 -- 6 Wound 11/10/23 Incision Perineum 11/10/231706 Perineum 8 Wound 11/10/23 Foot Left 11/10/23 1839 Foot 8 Psychosocial Within Defined Limits * Nursing Assessment - Rex Modi RN - 11/19/2023 1:22 AM CDT Nursing Assessment Head to Toe Head to Toe Assessment Shift Summary Pt alert to self and surrounding. Able to make needs known. Denies pain and discomfort. Ax1 w/walker and transfer belt. Perineal dressinf C/D/I. NO acute event overnight. Plan of care ongoing. Neurologic/Cognitive Within Defined Limits Comments: Forgetfull at times HEENT Within Defined Limits Cardiac Within Defined Limits Respiratory Within defined limits Neurovascular Within Defined Limits Gastrointestinal Within Defined Limits Emesis: 0 mL (11/17/2023 8:00 PM) Stool/Urine (mL): 0 mL (11/17/231999) Stool (unmeasured): 0 (11/17/231999) Stool Amount: small (11/15/231699) Stool Color: light brown (11/15/231699) Stool Consistency: soft (11/15/231699) Liquid Stool (mL): 0 mL (11/17/231999) Genitourinary Within Defined Limits Musculoskeletal Assessment Within Defined Limits except for: Musculoskeletal Assessment: General Mobility: Generalized weakness Range of Motion: LLE - mildly impaired Comments: Left great toe amputation Integumentary Assessment Within Defined Limits except for: Skin Assessment Integrity - see Avatar LDA documentation Patient Lines/Drains/Airways Status Active LDAs Name Placement date Placement time Site Days Peripheral IV 11/13/23 20 gauge;1 3/4 in length Anterior;Left Forearm 11/13/23 0929 -- 5 Wound 11/10/23 Incision Perineum 11/10/231706 Perineum 8 Wound 11/10/23 Foot Left 11/10/23 1839 Foot 8 Psychosocial Assessment Within Defined Limits except for: Psychosocial Assessment: Verbalized Emotional State: Acceptance Family Behavior: not present Comments: Pt states he felt sad about left great toe amputation, states mood is OK, denies suicidalideation. * Nursing Assessment - Robb Delgado RN - 11/18/2023 8:31 PM CDT Nursing Assessment Head to Toe Head to Toe Assessment Shift Summary MRSA came back positive. MD aware. New orders for contact precaution. Education provided about MRSA. Pt is up with standby assist, endorses mild dizziness with ambulation. Boot on LLE, worn at all times. Evening BG check was 69 at 2029, hypoglycemia protocol initiated, recheck 99 at 2044. Dressing to LLE is clean dry and intact. Perianal wound assessed, dressing changed at 2099, clean dry and intact. Neurologic/Cognitive Within Defined Limits HEENT Assessment Within Defined Limits except for: Teeth Symptoms: Tooth/teeth missing Cardiac Assessment Within Defined Limits except for: [employer] - remote telemetry Respiratory Within defined limits Neurovascular Assessment Within Defined Limits except for: Neurovascular LLE Pedal Pulse: 1+ Gastrointestinal Within Defined Limits Emesis: 0 mL (11/17/2023 8:00 PM) Stool/Urine (mL): 0 mL (11/17/231999) Stool (unmeasured): 0 (11/17/231999) Stool Amount: small (11/15/23 1700) Stool Color: light brown (11/15/23 1700) Stool Consistency: soft (11/15/23 1700) Liquid Stool (mL): 0 mL (11/17/231999) Genitourinary Within Defined Limits Musculoskeletal Assessment Within Defined Limits except for: Musculoskeletal Assessment: General Mobility: Mildly impaired Range of Motion: LLE - brace/immobilizer/splint/sling/cast and amputation RLE - amputation Integumentary Assessment Within Defined Limits except for: Skin Assessment Integrity - see Avatar LDA documentation Patient Lines/Drains/Airways Status Active LDAs Name Placement date Placement time Site Days Peripheral IV 11/13/23 20 gauge;1 3/4 in length Anterior;Left Forearm 11/13/23 0929 -- 5 Wound 11/10/23 Incision Perineum 11/10/23 1707 Perineum 8 Wound 11/10/23 Foot Left 11/10/23 1839 Foot 8 Psychosocial Within Defined Limits * Nursing Assessment - Jabari Colby RN - 11/18/2023 2:41 PM CDT Nursing Assessment Head to Toe Head to Toe Assessment Shift Summary Pt alert and orientated. Room air. Pt ambulating to bathroom with surgical shoe on left foot. Pt did not eat breakfast, no appetite, ate 80 percent of lunch, blood sugars covered with sliding scale and Lantus insulin. Pt rates pain at 5/10 given scheduled tylenol and PRN oxycodone. Pt perineal dressing change at noon and podiatry changed left foot dressing. Neurologic/Cognitive Within Defined Limits Comments: Forgetfull at times HEENT Within Defined Limits Cardiac Within Defined Limits Respiratory Within defined limits Neurovascular Within Defined Limits Gastrointestinal Within Defined Limits Emesis: 0 mL (11/17/2023 8:00 PM) Stool/Urine (mL): 0 mL (11/17/231999) Stool (unmeasured): 0 (11/17/231999) Stool Amount: small (11/15/231699) Stool Color: light brown (11/15/23 1700) Stool Consistency: soft (11/15/23 1700) Liquid Stool (mL): 0 mL (11/17/231999) Genitourinary Within Defined Limits Musculoskeletal Assessment Within Defined Limits except for: Musculoskeletal Assessment: General Mobility: Generalized weakness Range of Motion: LLE - mildly impaired Comments: Left great toe amputation Integumentary Assessment Within Defined Limits except for: Skin Assessment Integrity - see Avatar LDA documentation Patient Lines/Drains/Airways Status Active LDAs Name Placement date Placement time Site Days Peripheral IV 11/13/23 20 gauge;1 3/4 in length Anterior;Left Forearm 11/13/23 0929 -- 5 Wound 11/10/23 Incision Perineum 11/10/23 1707 Perineum 7 Wound 11/10/23 Foot Left 11/10/23 1839 Foot 7 Psychosocial Assessment Within Defined Limits except for: Psychosocial Assessment: Observed Patient Behaviors: Sad/tearful Verbalized Emotional State: Sadness Comments: Pt states he felt sad about left great toe amputation, states mood is OK, denies suicidalideation. * Cross Cover - Nico Hogue MD - 11/18/2023 2:14 PM CDT Team got paged at 1:45 about a phone conversation that patient has had with his girlfriend which rufino received this contestation through facility RN ' he is depressed and want to .'. I visited the patient and talked to him, he doesn't have any suicidal thoughts or suicidal plan, hewas responsive and cooperative lying in the bed and watching video in his phone. Nico Hogue MD, 11/18/2023 2:17 PM * Nursing Assessment - Taty Smith RN - 11/18/2023 5:07 AM CDT Nursing Assessment Head to Toe Head to Toe Assessment Shift Summary PRN Oxy given x2 for pain overnight. PRN Nicotine gum given x2. Taty Smith RN, 11/18/2023 5:06 AM Neurologic/Cognitive Within Defined Limits Comments: Q 8 neuros Frequent Neuro Assessments have been documented in the flowsheets HEENT Assessment Within Defined Limits except for: Comments: Pt. states he has had spots/floaters in his vision since admission Cardiac Assessment Within Defined Limits except for: Heart sounds: S1, S2 [employer] - remote telemetry Comments: Consistently sustaining SBP above 180 - PRN Hydralazine administered x1 and MD notified, new PRN HTN meds added to MAR. Pt. also endorsed experiencing dizziness when ambulating. Pt. also had x1 episode of dizziness while laying in bed after BP returned to normal (MD notified, new scheduled BP meds held per MD). Pt. placed back on remote tele per MD. Respiratory Within defined limits Neurovascular Assessment Within Defined Limits except for: Neurovascular LLE Sensation: Chronic, sensation decreased and tingling Neurovascular RLE Sensation: Sensation decreased and tingling Gastrointestinal Within Defined Limits Emesis: 0 mL (11/17/2023 8:00 PM) Stool/Urine (mL): 0 mL (11/17/231999) Stool (unmeasured): 0 (11/17/231999) Stool Amount: small (11/15/231699) Stool Color: light brown (07/08/24 1700) Stool Consistency: soft (11/15/23 1700) Liquid Stool (mL): 0 mL (11/17/231999) Genitourinary Within Defined Limits Musculoskeletal Assessment Within Defined Limits except for: Musculoskeletal Assessment: General Mobility: Generalized weakness and mildly impaired Range of Motion: LLE - brace/immobilizer/splint/sling/cast and amputation RLE - amputation Comments: 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 big toe amputation. Lt. foot in boot. Integumentary Assessment Within Defined Limits except for: Skin Assessment Integrity - see Avatar LDA documentation Integrity Location - LLE, groin Comments: X1 toe amputation to LLE, x1 groin abcess (gangrene), see LDA. Wound cares completed. Patient Lines/Drains/Airways Status Active LDAs Name Placement date Placement time Site Days Peripheral IV 11/13/23 20 gauge;1 3/4 in length Anterior;Left Forearm 11/13/23 0929 -- 4 Wound 11/10/23 Incision Perineum 11/10/23 1707 Perineum 7 Wound 11/10/23 Foot Left 11/10/23 1839 Foot 7 Psychosocial Within Defined Limits Comments: Placement TBD. * Interval Note Provider - Gale Gottlieb MD - 11/18/2023 4:19 AM CDT Paged re bleeding from surgical site of left great toe after patient ambulated to bathroom. Podiatry assessed. Later paged for SBP as high as 220s on both arms despite PO hydralazine. On previous days had routinely run 160s-180s. No headaches, chest pain, vision changes, or neurologic changes. Given hydralazine 10 mg IV. BP dropped to 120s systolic. Reported dizziness. Hydralazine and scheduled dose of PO am lodipine/carvedilol held. * Nursing Assessment - Mabel Mathews RN - 11/17/2023 4:56 PM CDT Nursing Assessment Head to Toe Head to Toe Assessment Shift Summary [id number] Pt is a/o X4 and can make needs known. Pt is minimal assist to turn and roll in bed and minimal assist to ambulate in the room. Pt has foot dressing reinforced after soaking thru surgical bandage after left big toe amputation. Pt VSS, on RA, and is on remote tele. Pt had no c/o of nausea, vomiting,diarrhea, or chest pain. Takes med's whole and was given scheduled and PRN pain medication. Pt is carb count diabetic and has wound packing done as needed to groin and perineum wound. Will continue to monitor. Neurologic/Cognitive Within Defined Limits Frequent Neuro Assessments have been documented in the flowsheets HEENT Within Defined Limits Cardiac Assessment Within Defined Limits except for: [employer] - remote telemetry Respiratory Within defined limits Neurovascular Assessment Within Defined Limits except for: Neurovascular LLE Sensation: Sensation decreased and tenderness Neurovascular RLE Sensation: Sensation decreased Gastrointestinal Within Defined Limits Stool (unmeasured): 1 (11/16/23 0500) Stool Amount: small (11/15/23 1700) Stool Color: light brown (11/15/23 1700) Stool Consistency: soft (11/15/23 1700) Genitourinary Within Defined Limits Musculoskeletal Assessment Within Defined Limits except for: Musculoskeletal Assessment: General Mobility: Generalized weakness and mildly impaired Range of Motion: General - mildly impaired Integumentary Assessment Within Defined Limits except for: Skin Assessment Integrity - see Avatar LDA documentation Patient Lines/Drains/Airways Status Active LDAs Name Placement date Placement time Site Days Peripheral IV 11/13/23 20 gauge;1 3/4 in length Anterior;Left Forearm 11/13/23 0929 -- 4 Wound 11/10/23 Incision Perineum 11/10/23 1707 Perineum 6 Wound 11/10/23 Foot Left 11/10/23 1839 Foot 6 Psychosocial Within Defined Limits * Op Note Immediate - Che Palomo DPM - 11/17/2023 9:26 AM CDT [facility] Immediate Post Operative Note Note written: Day of Surgery Patient Name: Matt Low ( ) OR Date: 11/17/2023 0834 Procedure(s) and Anesthesia Type: * AMPUTATION, TOE - Choice Pre-op History and Physical reviewed. Pre-Op Diagnosis Codes: * Foot infection [L08.9] Post-Op Diagnosis Codes: * Foot infection [L08.9] Surgeons and Role: * Che Palomo DPM - Primary Antibiotics Administered cefTRIAXone (ROCEPHIN) 1 g in NaCl 0.9% 100 mL IVPB Last given: 902 Frequency: PERIOP CONTINUOUS * Missing tourniquet times found for documented tourniquets in lo * no tourniquet used * No LDAs found * * No implants in log * Intraoperative Findings: necrotic toe, at amputation site clean visible margins. Good bleeding without tourniquet Infection Present at Time of Surgery: Surgical site contents consistent with active infection EBL: 35 ml ID Type Source Tests Collected by Time Destination 1 : Left hallux soft tissue Dirty Tissue Toe AFB CULTURE:INCLUDES AFB SMEAR, ANAEROBE CULTURE, FUNGUS CULTURE:INCLUDES SUHAS, TISSUE CULTURE:INCLUDES GRAM STAIN Che Palomo DPM 11/17/2023 0932 2 : Left hallux soft tissue clean Tissue Toe AFB CULTURE:INCLUDES AFB SMEAR, ANAEROBE CULTURE, FUNGUS CULTURE:INCLUDES SUHAS, TISSUE CULTURE:INCLUDES GRAM STAIN Che Palomo DPM 11/17/2023 0935 A : Left Hallux AP Specimen Foot SURGICAL PATHOLOGY Che Palomo DPM 11/17/2023 0931 Complications: none Che Palomo DPM 11/17/2023 09:55 * Nursing Assessment - Raymundo Dunlap RN - 11/17/2023 8:22 AM CDT Nursing Assessment Head to Toe Head to Toe Assessment Shift Summary Patient to the OR at 0800. This literary writer called to notify [employer] GRADERstaff nurse midwife of hypertension. Pt had left the room prior to [facility] notifying this literary writer of BP of 222/101. Vitals: 11/17/23 0800 BP: (!) 222/101 Pulse: 85 Resp: Temp: 36.8 ??C (98.2 ??F) SpO2: 90% Neurologic/Cognitive Assessment Within Defined Limits except for: Cognition: poor judgement/safety awareness Mood/Behavior: Calm Comments: Forgetful HEENT Assessment Within Defined Limits except for: Mouth Symptoms: Difficulty chewing Teeth Symptoms: Tooth/teeth missing Cardiac Within Defined Limits Respiratory Within defined limits Neurovascular Assessment Within Defined Limits except for: Neurovascular LLE Sensation: Sensation decreased Gastrointestinal Within Defined Limits Genitourinary Within Defined Limits Musculoskeletal Within Defined Limits Integumentary Assessment Within Defined Limits except for: Skin Assessment Integrity - see Avatar LDA documentation * Nursing Assessment - Krzysztof Brooke RN - 11/17/2023 5:59 AM CDT Nursing Assessment Head to Toe Head to Toe Assessment Shift Summary NPO since midnight for planned left foot hallux amputation to leave unit at 0800. Appeared to be sleeping for majority of the night. PRN oxycodone once for pain. Krzysztof Brooke RN, 11/17/2023 6:00 AM Neurologic/Cognitive Assessment Within Defined Limits except for: Cognition: poor judgement/safety awareness Orientation: disoriented to time Mood/Behavior: Anxious Comments: Forgetful HEENT Assessment Within Defined Limits except for: Mouth Symptoms: Difficulty chewing Teeth Symptoms: Tooth/teeth missing Cardiac Within Defined Limits Respiratory Within defined limits Neurovascular Assessment Within Defined Limits except for: Neurovascular LLE Sensation: Sensation decreased Gastrointestinal Within Defined Limits Stool (unmeasured): 1 (11/16/23 0500) Stool Amount: small (11/15/23 1700) Stool Color: light brown (11/15/23 1700) Stool Consistency: soft (11/15/23 1700) Genitourinary Within Defined Limits Musculoskeletal Within Defined Limits Integumentary Assessment Within Defined Limits except for: Skin Assessment Integrity - see Avatar LDA documentation Patient Lines/Drains/Airways Status Active LDAs Name Placement date Placement time Site Days Peripheral IV 11/13/23 20 gauge;1 3/4 in length Anterior;Left Forearm 11/13/23 0929 -- 3 Wound 11/10/23 Incision Perineum 11/10/23 1707 Perineum 6 Wound 11/10/23 Foot Left 11/10/23 1839 Foot 6 Psychosocial Assessment Within Defined Limits except for: Psychosocial Assessment: Verbalized Emotional State: Anxiety * Nursing Assessment - Krzysztof Brooke RN - 11/16/2023 9:37 PM CDT Nursing Assessment Head to Toe Head to Toe Assessment Shift Summary Neurologic/Cognitive Assessment Within Defined Limits except for: Cognition: poor judgement/safety awareness Orientation: disoriented to time Mood/Behavior: Anxious Comments: Forgetful HEENT Assessment Within Defined Limits except for: Mouth Symptoms: Difficulty chewing Teeth Symptoms: Tooth/teeth missing Cardiac Within Defined Limits Respiratory Within defined limits Neurovascular Assessment Within Defined Limits except for: Neurovascular LLE Sensation: Sensation decreased Gastrointestinal Within Defined Limits Stool (unmeasured): 1 (11/16/23 0500) Stool Amount: small (11/15/23 1700) Stool Color: light brown (11/15/23 1700) Stool Consistency: soft (11/15/23 1700) Genitourinary Within Defined Limits Musculoskeletal Within Defined Limits Integumentary Assessment Within Defined Limits except for: Skin Assessment Integrity - see Avatar LDA documentation Patient Lines/Drains/Airways Status Active LDAs Name Placement date Placement time Site Days Peripheral IV 11/13/23 20 gauge;1 3/4 in length Anterior;Left Forearm 11/13/23 0929 -- 3 Wound 11/10/23 Incision Perineum 11/10/231706 Perineum 6 Wound 11/10/23 Foot Left 11/10/23 1839 Foot 6 Psychosocial Assessment Within Defined Limits except for: Psychosocial Assessment: Verbalized Emotional State: Anxiety * Nursing Assessment - Dominga Glover RN - 11/16/2023 2:30 PM CDT Nursing Assessment Head to Toe Head to Toe Assessment BP (!) 177/84 Pulse 84 Temp 36.7 ??C (98.1 ??F) (Oral) Resp 18 Ht 1.803 m (5' 10.98) Wt (!) 140.5 kg (309 lb 11.9 oz) SpO2 95% BMI 43.22 kg/m?? Shift Summary Pt A/O x4 but forgetful. Elevated BP - PRN Hydralazine given x3 per MD. On RA. Denies pain. Neuros intact. CMS intact. Dressing changes completed by provider. Perineal dressing repeatedly falls off as Pt gets up to use the bathroom frequently. Educated Pt on using bedside urinal instead to preservedressing, however Pt does not follow recommendation. Pt takes pills whole. Independent in the room.Needs reminders to use walker during ambulation. Dominga Glover RN, 11/16/2023 4:25 PM Neurologic/Cognitive Assessment Within Defined Limits except for: Comments: Forgetful HEENT Within Defined Limits Cardiac Within Defined Limits Respiratory Within defined limits Neurovascular Within Defined Limits Gastrointestinal Within Defined Limits Stool (unmeasured): 1 (11/16/23 0500) Stool Amount: small (11/15/23 1700) Stool Color: light brown (11/15/23 1700) Stool Consistency: soft (11/15/23 1700) Genitourinary Within Defined Limits Musculoskeletal Within Defined Limits Integumentary Assessment Within Defined Limits except for: Comments: Perineal fourniers gangrene Patient Lines/Drains/Airways Status Active LDAs Name Placement date Placement time Site Days Peripheral IV 11/13/23 20 gauge;1 3/4 in length Anterior;Left Forearm 11/13/23 0929 -- 3 Wound 11/10/23 Incision Perineum 11/10/23 1707 Perineum 5 Wound 11/10/23 Foot Left 11/10/23 1839 Foot 5 Psychosocial Within Defined Limits * Nursing Assessment - Sheila Dias RN - 11/16/2023 4:21 AM CDT Nursing Assessment Head to Toe Head to Toe Assessment Shift Summary Pt alert and oriented x3, disoriented to time. VSS on RA. Pt ambulating with walker and SBA. Pt voiding with frequency and large amounts, as well as having multiple loose BMs requiring dressing changes/reinforcements. Pt frequently asking to go outside and smoke and asking for a staff member to go with him. Education has been provided multiple times that there is not enough staff to do that with him. Pt attempted to go outside and smoke independently, however he could not find his way and returned to his room. Pt appeared to have difficulty sleeping overnight. Will continue to monitor and follow POC. Neurologic/Cognitive Within Defined Limits Cognition: poor judgement/safety awareness and known developmental delay Orientation: disoriented to time HEENT Within Defined Limits Cardiac Within Defined Limits Respiratory Within defined limits Neurovascular Within Defined Limits Gastrointestinal Assessment Within Defined Limits except for: Additional GI Signs/Symptoms: diarrhea Stool (unmeasured): 1 (11/15/23 1100) Stool Amount: small (11/15/23 1700) Stool Color: light brown (11/15/23 1700) Stool Consistency: soft (11/15/23 1700) Genitourinary Within Defined Limits Voiding: Frequency Musculoskeletal Assessment Within Defined Limits except for: Musculoskeletal Assessment: General Mobility: Generalized weakness Integumentary Within Defined Limits Patient Lines/Drains/Airways Status Active LDAs Name Placement date Placement time Site Days Peripheral IV 11/13/23 20 gauge;1 3/4 in length Anterior;Left Forearm 11/13/23 0929 -- 2 Wound 11/10/23 Incision Perineum 11/10/23 1707 Perineum 5 Wound 11/10/23 Foot Left 11/10/23 1839 Foot 5 Psychosocial Within Defined Limits Psychosocial Assessment: Observed Patient Behaviors: Irritable and restless * Nursing Assessment - Adolfo Barone RN - 11/15/2023 5:16 PM CDT Nursing Assessment Head to Toe Head to Toe Assessment Shift Summary Patient occasionally gets disoriented to time and situation, and attempts to get out of bed withoutcalling for help and bed alarm is on for safety. Up in a chair for dinner and have had multiple small bowel movements and perianal area dressing has been changed several times. Voiding without difficulty. Vital signs stable. Good PO intake. Continue to monitor and treat per POC. 1850:Patient wants to go outside to smoke, and literary writer encouraged the patient not to go outside due to his current condition. However, patient insists to go outside and he is outside right now. Neurologic/Cognitive Assessment Within Defined Limits except for: Cognition: poor judgement/safety awareness and poor attention/concentration Level of Consciousness: Confused and lethargic Orientation: disoriented to time Frequent Neuro Assessments have been documented in the flowsheets HEENT Within Defined Limits Cardiac Assessment Within Defined Limits except for: [employer] - remote telemetry Respiratory Assessment Within Defined Limits except for: Comments: 2L O2 via N/C Neurovascular Assessment Within Defined Limits except for: Neurovascular LUE Temperature: Cool Neurovascular RUE Temperature: Cool Neurovascular LLE Sensation: Sensation decreased Neurovascular RLE Sensation: Sensation decreased Gastrointestinal Within Defined Limits Stool (unmeasured): 1 (11/15/23 1100) Stool Amount: small (11/15/23 1700) Stool Color: light brown (11/15/23 1700) Stool Consistency: soft (11/15/23 1700) Genitourinary Assessment Within Defined Limits except for: Voiding: Voiding without difficulty Genitalia signs/symptoms: Penile edema Musculoskeletal Assessment Within Defined Limits except for: Musculoskeletal Assessment: General Mobility: Generalized weakness Range of Motion: General - mildly impaired Integumentary Assessment Within Defined Limits except for: Skin Assessment Moisture - diaphoretic Integrity - see Avatar LDA documentation Patient Lines/Drains/Airways Status Active LDAs Name Placement date Placement time Site Days Peripheral IV 11/10/23 20 gauge Right Antecubital 11/10/23 -- -- 5 Peripheral IV 11/10/23 20 gauge Right Hand 11/10/23 1435 -- 5 Peripheral IV 11/13/23 20 gauge;1 3/4 in length Anterior;Left Forearm 11/13/23 0929 -- 2 Wound 11/10/23 Incision Perineum 11/10/23 1707 Perineum 5 Wound 11/10/23 Foot Left 11/10/23 1839 Foot 4 Psychosocial Within Defined Limits * Nursing Assessment - Adolfo Barone RN - 11/15/2023 9:51 AM CDT Nursing Assessment Head to Toe Head to Toe Assessment Shift Summary Patient is alert and oriented to person, place, and situation, but not to time. Able to communicateneeds and intermittently impulsive in getting OOB and bed alarm is on and ambulating with assistance x1 using a walker and gait belt, and was also up in a chair for 2 hours. Perianal area dressing was changed, and wearing mesh underwear to support the dressing. Fel[place] catheter was removed and voiding w/o difficulty and had BM x2. Good oral intake. Vital signs are stable. Continue to monitor and treat per POC. Neurologic/Cognitive Assessment Within Defined Limits except for: Cognition: poor judgement/safety awareness and poor attention/concentration Level of Consciousness: Confused and lethargic Orientation: disoriented to time Frequent Neuro Assessments have been documented in the flowsheets HEENT Within Defined Limits Cardiac Assessment Within Defined Limits except for: [employer] - remote telemetry Respiratory Assessment Within Defined Limits except for: Comments: 2L O2 via N/C Neurovascular Assessment Within Defined Limits except for: Neurovascular LUE Temperature: Cool Neurovascular RUE Temperature: Cool Neurovascular LLE Sensation: Sensation decreased Neurovascular RLE Sensation: Sensation decreased Gastrointestinal Within Defined Limits Stool (unmeasured): 1 (11/15/23446) Stool Amount: moderate (11/15/23446) Stool Color: brown (11/15/23446) Stool Consistency: soft (11/15/23446) Genitourinary Assessment Within Defined Limits except for: Voiding: Voiding without difficulty Genitalia signs/symptoms: Penile edema Musculoskeletal Assessment Within Defined Limits except for: Musculoskeletal Assessment: General Mobility: Generalized weakness Range of Motion: General - mildly impaired Integumentary Assessment Within Defined Limits except for: Skin Assessment Moisture - diaphoretic Integrity - see Avatar LDA documentation Patient Lines/Drains/Airways Status Active LDAs Name Placement date Placement time Site Days Peripheral IV 11/10/23 20 gauge Right Antecubital 11/10/23 -- -- 5 Peripheral IV 11/10/23 20 gauge Right Hand 11/10/23 1435 -- 4 Peripheral IV 11/13/23 20 gauge;1 3/4 in length Anterior;Left Forearm 11/13/23 0929 -- 2 Wound 11/10/23 Incision Perineum 11/10/23 1707 Perineum 4 Wound 11/10/23 Foot Left 11/10/23 1839 Foot 4 Urinary Catheter ICU output for active resuscitation/bleeding 11/10/23 1748 -- 4 Psychosocial Within Defined Limits * Nursing Assessment - Shirin Hi RN - 11/15/2023 12:10 AM CDT Nursing Assessment Head to Toe Head to Toe Assessment Shift Summary Disoriented to time. Intermittent confused statements. Easily reoriented. Sleeping between cares. Snoring during sleep. O2 @ 2L via NC while sleeping. Oxycodone given for pain w/ partial pain relief reported. Moderate BM x 1 on bedpan. Hourly rounding maintained. Continue monitoring & POC. Shirin Hi RN, 11/15/2023 5:06 AM Neurologic/Cognitive Assessment Within Defined Limits except for: Orientation: disoriented to time Mood/Behavior: Impulsive HEENT Within Defined Limits Cardiac Assessment Within Defined Limits except for: Chest Pain: No [employer] - remote telemetry Pacemaker: Pacemaker: No Respiratory Assessment Within Defined Limits except for: Respiratory Assessment: Respirations: Pattern irregular Comments: Snoring while sleeping Neurovascular Within Defined Limits Gastrointestinal Assessment Within Defined Limits except for: Abdominal appearance: Obese Stool (unmeasured): 1 (11/14/23899) Stool Amount: large (11/14/23899) Stool Color: brown (11/14/23899) Stool Consistency: loose (11/14/23899) Genitourinary Assessment Within Defined Limits except for: Voiding: Urinary catheter in place Comments: Felton Musculoskeletal Assessment Within Defined Limits except for: Musculoskeletal Assessment: General Mobility: Generalized weakness Range of Motion: RLE - amputation Integumentary Assessment Within Defined Limits except for: Skin Assessment Integrity - see Avatar LDA documentation Patient Lines/Drains/Airways Status Active LDAs Name Placement date Placement time Site Days Peripheral IV 11/10/23 20 gauge Right Antecubital 11/10/23 -- -- 5 Peripheral IV 11/10/23 20 gauge Right Hand 11/10/23 1435 -- 4 Peripheral IV 11/13/23 20 gauge;1 3/4 in length Anterior;Left Forearm 11/13/23 0929 -- 1 Wound 11/10/23 Incision Perineum 11/10/23 1707 Perineum 4 Wound 11/10/23 Foot Left 11/10/23 1839 Foot 4 Urinary Catheter ICU output for active resuscitation/bleeding 11/10/23 1748 -- 4 Psychosocial Within Defined Limits Psychosocial Assessment: Observed Patient Behaviors: Flat affect Verbalized Emotional State: Acceptance * Nursing Assessment - Ashley Martinez RN - 11/14/2023 10:13 PM CDT Nursing Assessment Head to Toe Head to Toe Assessment Shift Summary Pt alert, oriented x3, unsure of day or date. Occasionally impulsive in getting oob, A1 with walkerto bathroom, ambulating well, needs assistance with felton and other lines, bed alarm on for safety and has been sufficient. Dressings to rain area changed after small bm this afternoon, vashe soaked kerlix with abd, held in place with cotton underpants, change as needed with bm. Abx given per JUL. S ating well on RA. No acute changes this shift. Neurologic/Cognitive Assessment Within Defined Limits except for: Orientation: disoriented to time Mood/Behavior: Impulsive HEENT Within Defined Limits Cardiac Assessment Within Defined Limits except for: [employer] - remote telemetry Comments: NSR Respiratory Within defined limits Comments: Sating well on RA Neurovascular Within Defined Limits Gastrointestinal Within Defined Limits Stool (unmeasured): 1 (11/14/23899) Stool Amount: large (11/14/23899) Stool Color: brown (11/14/23899) Stool Consistency: loose (11/14/23899) Genitourinary Assessment Within Defined Limits except for: Voiding: Urinary catheter in place Comments: Felton for wound healing Musculoskeletal Assessment Within Defined Limits except for: Musculoskeletal Assessment: General Mobility: Generalized weakness Integumentary Assessment Within Defined Limits except for: Skin Assessment Integrity - see Avatar LDA documentation Comments: Rain area wound Patient Lines/Drains/Airways Status Active LDAs Name Placement date Placement time Site Days Peripheral IV 11/10/23 20 gauge Right Antecubital 11/10/23 -- -- 4 Peripheral IV 11/10/23 20 gauge Right Hand 11/10/23 1435 -- 4 Peripheral IV 11/13/23 20 gauge;1 3/4 in length Anterior;Left Forearm 11/13/23 0929 -- 1 Wound 11/10/23 Incision Perineum 11/10/23 1707 Perineum 4 Wound 11/10/23 Foot Left 11/10/23 1839 Foot 4 Urinary Catheter ICU output for active resuscitation/bleeding 11/10/23 1748 -- 4 Psychosocial Within Defined Limits * Nursing Assessment - Adolfo Barone RN - 11/14/2023 10:28 AM CDT Nursing Assessment Head to Toe Head to Toe Assessment Shift Summary Patient is alert and oriented to person, place, and situation, but not to time. Able to communicateneeds and intermittently use the call light. Pt ambulated with assistance x1 using a walker and gait belt, and was also up in a chair for over 2 hours. Pt had episodes of stool incontinence; perianalarea dressing was changed, and wearing mesh underwear to support the dressing. Felton catheter is patent with adequate urine output, and felton care has been performed. Good oral intake. Vital signs are stable, 2L of oxygen via NC. Continue to monitor and treat per POC. Neurologic/Cognitive Assessment Within Defined Limits except for: Cognition: poor judgement/safety awareness and poor attention/concentration Level of Consciousness: Confused and lethargic Orientation: disoriented to time Frequent Neuro Assessments have been documented in the flowsheets HEENT Within Defined Limits Cardiac Assessment Within Defined Limits except for: [employer] - remote telemetry Respiratory Assessment Within Defined Limits except for: Comments: 2L O2 via N/C Neurovascular Assessment Within Defined Limits except for: Neurovascular LUE Temperature: Cool Neurovascular RUE Temperature: Cool Neurovascular LLE Sensation: Sensation decreased Neurovascular RLE Sensation: Sensation decreased Gastrointestinal Within Defined Limits Stool (unmeasured): 1 (11/13/23 1430) Stool Amount: moderate (11/14/23 0600) Stool Color: brown (11/14/23 0600) Stool Consistency: loose (11/14/23 06) Genitourinary Assessment Within Defined Limits except for: Voiding: Urinary catheter in place Genitalia signs/symptoms: Penile edema Musculoskeletal Assessment Within Defined Limits except for: Musculoskeletal Assessment: General Mobility: Generalized weakness Range of Motion: General - mildly impaired Integumentary Assessment Within Defined Limits except for: Skin Assessment Moisture - diaphoretic Integrity - see Avatar LDA documentation Patient Lines/Drains/Airways Status Active LDAs Name Placement date Placement time Site Days Peripheral IV 11/10/23 20 gauge Right Antecubital 11/10/23 -- -- 4 Peripheral IV 11/10/23 20 gauge Right Hand 11/10/23 1435 -- 3 Peripheral IV 11/13/23 20 gauge;1 3/4 in length Anterior;Left Forearm 11/13/23 0929 -- 1 Wound 11/10/23 Incision Perineum 11/10/23 1707 Perineum 3 Wound 11/10/23 Foot Left 11/10/23 1839 Foot 3 Urinary Catheter ICU output for active resuscitation/bleeding 11/10/23 1748 -- 3 Psychosocial Within Defined Limits * Nursing Focused Reassessment - Ingrid Angulo RN - 11/14/2023 6:47 AM CDT Focused Reassessment Shift Summary In the beginning of the shift, pt was actively hallucinating and talking about leaving. Pt was redirectable, though. Alert to self only. After multiple tries of putting pt back to the bed, for pt safety we decided to put into 1:1. Team ordered Zyprexa, which helped the pt. Rain-wound cleaned and dressed with ABD because pt had BM. Pt's SBP elevated towards later hours pf this shift. Paged team. PRN Hydralazine given per MAR. Pt this AM is alert and orientated x4. Will continue to monitor. Ingrid Angulo RN, 11/14/2023 8:09 AM Cognitive: Assessment Within Defined Limits except for: Neurologic/Cognitive Assessment: Level of Consciousness: Lethargic and obtunded HEENT: Assessment Within Defined Limits except for: Cardiac: Assessment Within Defined Limits except for: [employer] - remote telemetry Respiratory: Assessment Within Defined Limits except for: Comments: 4LN Neurovascular: Assessment Within Defined Limits except for: Neurovascular LUE Neurovascular RUE Neurovascular LLE Neurovascular RLE Integumentary: Assessment Within Defined Limits except for: Skin Assessment Integrity - see Avatar LDA documentation Psychosocial: Assessment Within Defined Limits except for: * Interval Note Provider - Giles Yates MD - 11/14/2023 3:54 AM CDT [facility] [employer] Cover Note - PGY-1 Matt Low 43 y.o. [id number] Paged at 03:34 on 11/14/23 for elevated BP to 175/93. Per chart review and medicine consulting team note, patient has a history of HTN treated with losartan 50 mg daily. MD went to the room to re-checkBP, slightly reduced on recheck x2 with systolic pressures in the low 170s. Pressures have been largely in the normal range on this admission. Patient comfortable and sleeping between cares, responsive to questions, no pain, no change in vision, no other findings concerning for hypertensive emergency. May consider IV antihypertensive if BP elevation is sustained, however will plan to re-check this evening. Some concern for hypotension if treated too aggressively (especially since patient is rece iving numerous antipsychotic medications which can contribute to hypotension at baseline). Plan to re-check BP, order IV hydralazine for SBP > 180. - Close monitoring with BP re-check this evening - Hold off on IV antihypertensive for now pending course, plan for IV hydralazine for SBP > 180 - Potentially resume LEI MA[employer]ER losartan per primary team in the AM Giles Yates MD, 11/14/2023 4:00 AM PGY-1 [facility] * Nursing Assessment - Theresa Romero, RN - 11/13/2023 8:30 AM CDT Nursing Assessment Head to Toe Head to Toe Assessment Shift Summary Pt bounced between being obtunded and alert again all day today. Neuro checks were difficult to complete d/t pt being difficult to keep awake during exams at times. While awake, pt was consistently d/o to time, sometimes only oriented to self. Pt repeatedly reported visual hallucination to this RN.Team aware. PRN 1x zyprexa given. Pt also had many moments of impulsivity where he tried to get out of bed on his own to go to the bathroom, go get something, or even trying to go get his daughter who he thought was in the room. Pt advanced from heavy assist of 3 RN's yesterday, to assist of 2 RN's today, which went much better. Pt is insistant that he only wants to poop in the real bathroom so efforts to get pt to use bedside commode were abandoned. Pt was able to make it safely to toilet and had 4 BM's today, but was very unsteady on feet, imbalanced/tippy, and needed heavy assist of 2 with gaitbelt. Bed alarm absolutely needed, and primary RN found it helpful to sit outside room whenever possible -overnights might consider VMT if impulsivity continues to escalate. Theresa Romero RN, 11/13/2023 7:14 PM Neurologic/Cognitive Assessment Within Defined Limits except for: Cognition: poor judgement/safety awareness and poor attention/concentration Level of Consciousness: Obtunded, lethargic and confused Arousal Level: Arouses to voice and arouses to touch/gentle shaking Orientation: disoriented to time Speech: Illogical Mood/Behavior: Impulsive Frequent Neuro Assessments have been documented in the flowsheets HEENT Within Defined Limits Cardiac Assessment Within Defined Limits except for: [employer] - remote telemetry Respiratory Assessment Within Defined Limits except for: Comments: 4L O2 via N/C Neurovascular Assessment Within Defined Limits except for: Neurovascular LUE Temperature: Cool Neurovascular RUE Temperature: Cool Neurovascular LLE Sensation: Sensation decreased Neurovascular RLE Sensation: Sensation decreased Gastrointestinal Within Defined Limits Stool (unmeasured): 1 (11/13/23 1430) Stool Amount: large (11/13/23 1430) Stool Color: brown (11/13/23 1430) Stool Consistency: soft;formed (11/13/23 1430) Genitourinary Assessment Within Defined Limits except for: Voiding: Urinary catheter in place Genitalia signs/symptoms: Penile edema Musculoskeletal Assessment Within Defined Limits except for: Musculoskeletal Assessment: General Mobility: Generalized weakness Range of Motion: General - mildly impaired Integumentary Assessment Within Defined Limits except for: Skin Assessment Moisture - diaphoretic Integrity - see Avatar LDA documentation Patient Lines/Drains/Airways Status Active LDAs Name Placement date Placement time Site Days Peripheral IV 11/10/23 20 gauge Right Antecubital 11/10/23 -- -- 3 Peripheral IV 11/10/23 20 gauge Right Hand 11/10/23 1435 -- 3 Peripheral IV 11/13/23 20 gauge;1 3/4 in length Anterior;Left Forearm 11/13/23 0929 -- less than 1 Wound 11/10/23 Incision Perineum 11/10/23 1707 Perineum 3 Wound 11/10/23 Foot Left 11/10/23 1839 Foot 3 Urinary Catheter ICU output for active resuscitation/bleeding 11/10/23 1748 -- 3 Psychosocial Within Defined Limits * Nursing Assessment - Devi Doll RN - 11/13/2023 6:08 AM CDT Nursing Assessment Head to Toe Head to Toe Assessment Shift Summary Shift SummaryNote D: Patient calm in bed resting.Sleepy and arousable to verbal commands.denies pain.On 04LNC.Has a dry cough.Groin wound draining small amount of serosanguinous fluid.Felton draining yellow urine. A: Dressing changed and enforced.Assisted to reposition in bed and to use bedpan..IV antibiotic given. R: Patient rested between cares.No complaints raised.VSS.Had a small soft stool. P: Continue with plan of care and monitoring. Neurologic/Cognitive Within Defined Limits HEENT Within Defined Limits Cardiac Assessment Within Defined Limits except for: [employer] - remote telemetry Pacemaker: Pacemaker: No Respiratory Assessment Within Defined Limits except for: Respiratory Assessment: Mechanical Device: While sleeping Comments: On O4LNC Neurovascular Assessment Within Defined Limits except for: Neurovascular LLE Sensation: Tenderness Edema Present: Yes Left Lower Extremity: 1+ Scrotal: 1+ Gastrointestinal Assessment Within Defined Limits except for: Abdominal appearance: Obese Stool Amount: moderate (11/10/23 1900) Stool Color: dark brown;green (11/11/23 0300) Stool Consistency: soft (small amount) (11/11/23 0300) Genitourinary Assessment Within Defined Limits except for: Voiding: Urinary catheter in place Urine characteristics: , cloudy Musculoskeletal Assessment Within Defined Limits except for: Musculoskeletal Assessment: General Mobility: Generalized weaknessJoint Tenderness left - foot and digit(specify) Comments: LEFT BIG TOE Integumentary Assessment Within Defined Limits except for: Skin Assessment Integrity - see Avatar LDA documentation Patient Lines/Drains/Airways Status Active LDAs Name Placement date Placement time Site Days Peripheral IV 11/10/23 20 gauge Right Antecubital 11/10/23 -- -- 3 Peripheral IV 11/10/23 20 gauge Right Hand 11/10/23 1435 -- 2 Wound 11/10/23 Incision Perineum 11/10/23 1707 Perineum 2 Wound 11/10/23 Foot Left 11/10/23 1839 Foot 2 Urinary Catheter ICU output for active resuscitation/bleeding 11/10/23 1748 -- 2 Psychosocial Within Defined Limits * Nursing Assessment - Michelle Bills RN - 11/12/2023 10:35 PM CDT Nursing Assessment Head to Toe Head to Toe Assessment Shift Summary Pt lethargic this shift, able to arouse but falls asleep when not stimulated. Right hand edematous,IV infiltrated. Generalized edema. Assist with repositioning as needed. Felton cares completed. Neurologic/Cognitive Assessment Within Defined Limits except for: Cognition: poor judgement/safety awareness and poor attention/concentration Level of Consciousness: Lethargic and obtunded Arousal Level: Arouses to touch/gentle shaking Orientation: disoriented to time and disoriented to place Frequent Neuro Assessments have been documented in the flowsheets HEENT Within Defined Limits Cardiac Within Defined Limits Respiratory Assessment Within Defined Limits except for: Respiratory Assessment: Mechanical Device: Continuous Comments: 4L NC Neurovascular Assessment Within Defined Limits except for: Edema Present: Yes Generalized: 3+ Right Upper Extremity: 3+ Gastrointestinal Assessment Within Defined Limits except for: Abdominal appearance: Obese Stool Amount: moderate (11/10/23 1900) Stool Color: dark brown;green (11/11/23 0300) Stool Consistency: soft (small amount) (11/11/23 0300) Genitourinary Assessment Within Defined Limits except for: Voiding: Urinary catheter in place Urine characteristics: , cloudy Musculoskeletal Assessment Within Defined Limits except for: Musculoskeletal Assessment: General Mobility: Generalized weakness and moderately impaired Range of Motion: General - mildly impaired RLE - amputation Integumentary Assessment Within Defined Limits except for: Skin Assessment Integrity - see Avatar LDA documentation Patient Lines/Drains/Airways Status Active LDAs Name Placement date Placement time Site Days Peripheral IV 11/10/23 20 gauge Right Antecubital 11/10/23 -- -- 2 Peripheral IV 11/10/23 20 gauge Right Hand 11/10/23 1435 -- 2 Wound 11/10/23 Incision Perineum 11/10/23 1707 Perineum 2 Wound 11/10/23 Foot Left 11/10/23 1839 Foot 2 Urinary Catheter ICU output for active resuscitation/bleeding 11/10/23 1748 -- 2 Psychosocial Within Defined Limits * Nursing Assessment - Theresa Romero, RN - 11/12/2023 9:00 AM CDT Nursing Assessment Head to Toe Head to Toe Assessment Shift Summary Pt bounced between being obtunded and alert all day. Neuro checks were difficult to complete d/t ptbeing difficult to keep awake during exams at times. While awake, pt was consistently d/o to time. Pt stated to this RN earlier, during an alert period, that he was not strong enough to roll himself in the bed and wedges and Q2h turns were implemented. Pt made some strange statements to this RN, speaking illogically in a way that was very difficult for this RN to follow. This RN initially assumedit had to do with baseline cog deficits from hx of TBI, but pt later reported to this RN that he was having active visual hallucinations. Pt also had a moment of impulsivity where he tried to get outof bed on his own to go to the bathroom. With three RN's, pt was able to make it safely to toilet and had BM, but was very unsteady on feet, imbalanced/tippy, and needed heavy assist of 2 with gaitbelt. Pt is now safely back in bed, resting. Theresa Romero, RN, 11/12/2023 7:38 PM Neurologic/Cognitive Assessment Within Defined Limits except for: Cognition: poor judgement/safety awareness and poor attention/concentration Level of Consciousness: Obtunded, lethargic and confused Arousal Level: Arouses to voice and arouses to touch/gentle shaking Orientation: disoriented to time Speech: Illogical Mood/Behavior: Impulsive Frequent Neuro Assessments have been documented in the flowsheets HEENT Within Defined Limits Cardiac Assessment Within Defined Limits except for: [employer] - remote telemetry Respiratory Assessment Within Defined Limits except for: Comments: 4L O2 via N/C Neurovascular Assessment Within Defined Limits except for: Neurovascular LUE Temperature: Cool Neurovascular RUE Temperature: Cool Neurovascular LLE Sensation: Sensation decreased Neurovascular RLE Sensation: Sensation decreased Gastrointestinal Within Defined Limits Stool Amount: moderate (11/10/23 1900) Stool Color: dark brown;green (11/11/23 0300) Stool Consistency: soft (small amount) (11/11/23 0300) Genitourinary Assessment Within Defined Limits except for: Voiding: Urinary catheter in place Genitalia signs/symptoms: Penile edema Musculoskeletal Assessment Within Defined Limits except for: Musculoskeletal Assessment: General Mobility: Generalized weakness Range of Motion: General - mildly impaired Integumentary Assessment Within Defined Limits except for: Skin Assessment Moisture - diaphoretic Integrity - see Avatar LDA documentation Patient Lines/Drains/Airways Status Active LDAs Name Placement date Placement time Site Days Peripheral IV 11/10/23 20 gauge Right Antecubital 11/10/23 -- -- 2 Peripheral IV 11/10/23 20 gauge Right Hand 11/10/23 1435 -- 2 Wound 11/10/23 Incision Perineum 11/10/23 1707 Perineum 2 Wound 11/10/23 Foot Left 11/10/23 1839 Foot 2 Urinary Catheter ICU output for active resuscitation/bleeding 11/10/23 1748 -- 2 Psychosocial Within Defined Limits * Nursing Assessment - Ingrid Angulo RN - 11/12/2023 5:14 AM CDT Nursing Assessment Head to Toe Head to Toe Assessment Shift Summary Pt is alert and orientated x4, but at times intermittently confused and not sure why he is. He has not used the call light to make his needs known this shift , unable to say if it is his baseline. Hemakes his needs known when staff is in the room, though. Pt denies sob, and chest pain. Pt endorsedpain in the groin area. Pain medication given per JUL. Insulin drip is on continues. Pt is sleepingin and out most of the shift. Will continue with current POC. Filed Vitals: 11/12/23 0400 BP: 119/72 Pulse: 87 Resp: 18 Temp: 36.8 ??C (98.2 ??F) Weight: Ingrid Angulo RN, 11/12/2023 5:23 AM Within Defined Limits HEENT Within Defined Limits Cardiac Assessment Within Defined Limits except for: [employer] - remote telemetry Respiratory Assessment Within Defined Limits except for: Comments: 4L NC Neurovascular Assessment Within Defined Limits except for: Neurovascular RLE Gastrointestinal Within Defined Limits Stool Amount: moderate (11/10/23 1900) Stool Color: dark brown;green (11/11/23 0300) Stool Consistency: soft (small amount) (11/11/23 0300) Genitourinary Within Defined Limits Musculoskeletal Assessment Within Defined Limits except for: Musculoskeletal Assessment: General Mobility: Mildly impaired and generalized weakness Integumentary Assessment Within Defined Limits except for: Skin Assessment Integrity - see Avatar LDA documentation Patient Lines/Drains/Airways Status Active LDAs Name Placement date Placement time Site Days Peripheral IV 11/10/23 20 gauge Right Antecubital 11/10/23 -- -- 2 Peripheral IV 11/10/23 20 gauge Right Hand 11/10/23 1435 -- 1 Wound 11/10/23 Incision Perineum 11/10/23 1707 Perineum 1 Wound 11/10/23 Foot Left 11/10/23 1839 Foot 1 Urinary Catheter ICU output for active resuscitation/bleeding 11/10/23 1748 -- 1 Psychosocial Within Defined Limits * Interval Note Provider - Alexandra Montano MD - 11/11/2023 10:51 PM CDT Post-operative check Denies nausea/vomiting, fevers, chills. Reports pain is minimal. No concerns at this time. Alexandra Montano MD, 11/11/2023 10:53 PM * Nursing Assessment - Robin Luis RN - 11/11/2023 6:39 PM CDT Nursing Assessment Head to Toe Head to Toe Assessment Shift Summary Shift Summary Neurologic/Cognitive Assessment Within Defined Limits except for: Level of Consciousness: Lethargic HEENT Within Defined Limits Cardiac Assessment Within Defined Limits except for: [employer] - remote telemetry Respiratory Assessment Within Defined Limits except for: Respiratory Assessment: Respirations: Dyspnea on exertion, apneic and pattern irregular Breath Sounds Normal: Yes Comments: On 4 L of O2 Neurovascular Within Defined Limits Gastrointestinal Assessment Within Defined Limits except for: Abdominal appearance: Obese Stool Amount: moderate (11/10/23 1900) Stool Color: dark brown;green (11/11/23 0300) Stool Consistency: soft (small amount) (11/11/23 030) Genitourinary Assessment Within Defined Limits except for: Voiding: Urinary catheter in place Musculoskeletal Assessment Within Defined Limits except for: Musculoskeletal Assessment: Range of Motion: LLE - moderately impaired RLE - amputation and moderately impaired Integumentary Assessment Within Defined Limits except for: Skin Assessment Integrity - see Avatar LDA documentation Patient Lines/Drains/Airways Status Active LDAs Name Placement date Placement time Site Days Peripheral IV 11/10/23 20 gauge Right Antecubital 11/10/23 -- -- 1 Peripheral IV 11/10/23 20 gauge Right Hand 11/10/23 1435 -- 1 Wound 11/10/23 Incision Perineum 11/10/23 1707 Perineum 1 Wound 11/10/23 Foot Left 11/10/23 1839 Foot 1 Urinary Catheter ICU output for active resuscitation/bleeding 11/10/23 1748 -- 1 Psychosocial Within Defined Limits * Op Note Immediate - Kathy Nichols MD - 11/11/2023 3:13 PM CDT [facility] Immediate Post Operative Note Note written: Day of Surgery Patient Name: Matt Low ( ) OR Date: 11/11/2023 1400 Procedure(s) and Anesthesia Type: * IRRIGATION AND DEBRIDEMENT, PERINEAL WOUND - General Pre-op History and Physical reviewed. 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 Minimal necrotic tissue, appeared grossly uninfected. Infection Present at Time of Surgery: Surgical site contents consistent with active infection Operative wound dirty EBL: 2 ml * No specimens in log * Complications: None Kathy Nichols MD 11/11/2023 15:38 General Surgery Resident, PGY-2 * Nursing Assessment - Robin Luis RN - 11/11/2023 11:32 AM CDT Nursing Assessment Head to Toe Head to Toe Assessment Shift Summary Shift Summary Neurologic/Cognitive Within Defined Limits HEENT Within Defined Limits Cardiac Within Defined Limits Respiratory Assessment Within Defined Limits except for: Respiratory Assessment: Respirations: Dyspnea on exertion Breath Sounds Normal: Yes Comments: On 2 L of O2 Neurovascular Within Defined Limits Gastrointestinal Assessment Within Defined Limits except for: Abdominal appearance: Obese Stool Amount: moderate (11/10/23 1900) Stool Color: dark brown;green (11/11/23 0300) Stool Consistency: soft (small amount) (11/11/23 0300) Genitourinary Assessment Within Defined Limits except for: Voiding: Urinary catheter in place Musculoskeletal Assessment Within Defined Limits except for: Musculoskeletal Assessment: Range of Motion: LLE - moderately impaired RLE - amputation and moderately impaired Integumentary Assessment Within Defined Limits except for: Skin Assessment Integrity - see Avatar LDA documentation Patient Lines/Drains/Airways Status Active LDAs Name Placement date Placement time Site Days Peripheral IV 11/10/23 20 gauge Right Antecubital 11/10/23 -- -- 1 Peripheral IV 11/10/23 20 gauge Right Hand 11/10/23 1435 -- less than 1 Wound 11/10/23 Incision Perineum 11/10/23 1707 Perineum less than 1 Wound 11/10/23 Foot Left 11/10/23 1839 Foot less than 1 Urinary Catheter ICU output for active resuscitation/bleeding 11/10/23 1748 -- less than 1 Psychosocial Within Defined Limits * ED Faculty Note - Jessica Grullon MD - 11/10/2023 8:01 PM CDT Images from the original note were not included. ED Faculty Attestation and Critical Care Note Matt Low : 1980 Sex: male Patient Arrival Date and Time: 11/10/2023 2:28 PM FACULTY ATTESTATION I Jessica Grullon MD, I have discussed the case with the Resident. I have personally performed ahistory, physical exam, and my own medical decision making. I have reviewed the note and agree withthe findings and plan. Upon my evaluation, this patient had a high probability of imminent life or limb-threatening deterioration due to nec fasc, which required my highest level of preparedness to intervene emergently, and I spent this critical care time directly and personally managing the patient. I have personally provided 30 minutes of critical care time exclusive of time spent on separately billable procedures, treating other patients, or teaching time. Time includes obtaining history, examining the patient, ordering and review of studies, fluid resuscitation, pharmacotherapy including antibiotics, pulse oximetry, review of laboratory data, interpretation of radiology studies, frequent reassessment, monitoring for potential decompensation, discussion with consultants, and admission. This critical care time was performed to assess and manage the high probability of imminent deterioration that could result in shock Trauma Team: Not activated. PROCEDURES Not applicable Jessica Grullon MD, 11/15/2023 8:01 PM * Op Note Immediate - Fermin Osborn MD - 11/10/2023 5:07 PM CDT [facility] Immediate Post Operative Note Note written: Day of Surgery Patient Name: Matt Low ( ) OR Date: 11/10/2023 1600 Procedure(s) and Anesthesia Type: * Excisional debridement, PERINEAL NEC FASC - General Pre-op History and Physical reviewed. 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 Purulent and necrotic tissue sent for culture. Incision included left testicle which appeared grossly uninfected, counter incision made over right testicle, appeared grossly uninfected. Final dimensions 30cm x 15cm x 10cm. Infection Present at Time of Surgery: Abscess/s present, Surgical site contents consistent with active infection, and Purulence or pus present Operative wound dirty EBL: 150 ml ID Type Source Tests Collected by Time Destination 1 : Perineal tissue swab Swab Perineal ANAEROBE CULTURE, FUNGUS CULTURE:INCLUDES SUHAS, WOUND CULTURE:GRAM STAIN OPTIONAL Zac Churchill MD 11/10/2023 1712 2 : Perineal tissue Tissue Perineal AFB CULTURE:INCLUDES AFB SMEAR, ANAEROBE CULTURE, FUNGUS CULTURE:INCLUDES SUHAS, TISSUE CULTURE:INCLUDES GRAM STAIN Zac Churchill MD 11/10/2023 1713 Complications: None Fermin Osborn MD 11/10/2023 18:04 * Utilization Management - Olga Galeas RN - 11/10/2023 3:53 PM CDT INITIAL REVIEW Admit: rule out demar's gangrene Rec: IP On insulin gtt, no abx ordered at time of review in ED - 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 2 days ago he noticed pain in his perineum, it has gotten worse over the past several days. His girlfriend urged him to go to the hospital today and the physicians at [place] were concerned for Demar'sgangrene and transferred him here after a CT showed gas. He has had pain in his left great toe for several months, it turned black about a week ago. No new changes of the toe today. Denies nausea, vomiting, abdominal pain, fevers. Says that he just wants to sleep right now. Additional history limited secondary to patient's critical illness. PRIMARY SURVEY Airway: Patent, protecting. Breathing: Non-labored, symmetric chest rise. Circulation: Skin warm. Radial pulses palpable. Disability: 4 - Opens eyes spontaneously, 5 - Oriented, converses normally, 6 - Obeys commands. GCS: 15. Exposure: Clothing removed. VITALS Initial Vitals ED Triage Vitals Enc Vitals Group BP 11/10/23 1433 121/73 Pulse 11/10/23 1433 (!) 112 Resp 11/10/23 1433 (!) 32 Temp 11/10/23 1444 (!) 40.1 ??C (104.2 ??F) Temp src 11/10/23 1444 Rectal SpO2 11/10/23 1436 (!) 92 % Weight 11/10/23 1433 (!) 140.5 kg (309 lb 11.9 oz) Final Stabilization Room Vitals BP 111/76 Pulse 94 Temp (!) 40.1 ??C (104.2 ??F) (Rectal) Resp (!) 25 Wt (!) 140.5 kg (309 lb 11.9 oz) SpO2 99% SECONDARY SURVEY General: Alert, oriented. Head: Atraumatic. Eyes: Sclera white, lids normal. PERRL. ENT: Moist mucus membranes. No oropharyngeal/tonsillar edema or exudates. Neck: Supple. Trachea midline. Cardiac: Pulmonary: Unlabored respiratory effort. Lungs clear to auscultation bilaterally. Satting 90% on room air. GI: Soft, non-tender, non-distended. No rebound or guarding. : Testicles normal in appearance, nontender. Perineum with crepitus, blistering, purple in appearance (see photo in media tab) MSK: Freely moving all extremities. Right foot with well-healed amputation of all toes. Left foot with black, ulcerated great toe (see photo in media tab) Neuro: No focal sensory or motor deficits notes in upper or lower extremities. Normal speech. Skin: Warm, dry. No rashes, lesions, or bruising. MEDICAL DECISION MAKING Report taken from EMS as patient arrived to stabilization room. Transferred to STAB cart. Primary survey completed while patient was placed on monitor. IV access established and initial blood tests sent. Secondary survey then completed. Differential diagnosis includes any life or limb threatening pa thology including: pneumonia, urinary tract infection, bacteremia, endocarditis, intra-abdominal infection, cellulitis, osteomyelitis, meningitis, encephalitis, ENT infection, COVID, influenza. Patient arrived and outside hospital paperwork was reviewed. CT chest abdomen pelvis reveals evidence of situs inversus, and acute appearing gas in the perineum. CT of the left lower extremity shows gas in the left great toe, but does not appear to be spreading elsewhere. Patient had about half of a liter of fluids and route. Given additional 2 L of IV fluids in the STAB Room. Started on linezolid for MRSA coverage. The toe is likely dry gangrene. 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 General surgery was paged. Medical history noted to be significant for situs inversus, type 2 diabetes, psychiatric conditions. Labs from outside hospital significant for CRP of 30, procalcitonin of 0.83, white blood cell countof 20. Glucose was elevated at 400, 300 on arrival here. Non-DKA insulin drip started for glycemic control prior to OR Blood cultures drawn here, our labs are notable for a lactate of 2.3 EKG was repeated on the right chest due to his situs inversus - the EKG performed at outside hospital has a note that indicates lead reversal but this was likely because it was performed on the left. Surgery at bedside, patient taken emergently to the OR. See ED Course below for pertinent labs and studies. ED Course as of 11/10/23 1719 WedNov 10, 2023 1445 Paged surgery 1450 CRP 30, procal 0.83, WBC 20 at [place]. We will draw an ESR and our own blood cultures here. 1455 Lactate(!): 2.3 1455 Sodium(!): 133 1455 Creatinine: 0.98 1455 Glucose(!): 304 1455 PH Mayo(!): 7.47 1455 Hgb(!): 12.4 1458 Surgery resident is working on notifying the chief and attending, who are both currently in the OR 1514 WBC(!): 21.95 1514 Surgery chief aware, scrubbing out and on the way. I performed the following procedures: Adult Medical Resuscitation. CLINICAL IMPRESSION 1. 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HHS) 2. Hyperglycemia DISPOSITION & PLAN Patient stable for transfer to the OR. Signed out to general surgery team. Allyssa Drummond MD Emergency Medicine Resident (PGY-3) documented in this encounter Plan of Treatment Scheduled Orders Name Type Priority Associated Diagnoses Orde r Schedule URINE CHLAMYDIA AND NEISSERIAE GONORRHOEAE AMPLIFICATION Lab-Non blood Routine At risk for sexually transmitted infection due to unprotected sex Expected: 11/12/2023, Expires: 02/12/2024 HIV COMBO Lab Routine At risk for sexually transmitted infection due to unprotected sex Expected: 11/12/2023, Expires: 02/12/2024 HIV COMBO Lab Routine At risk for sexually transmitted infection due to unprotected sex Expected: 11/13/2023, Expires: 02/13/2024 HEPATITIS C ANTIBODY WITH CONDITIONAL PCR Lab Routine At risk for sexually transmitted infection due to unprotected sex Expected: 11/13/2023, Expires: 02/13/2024 Scheduled Referrals Name Type Priority Associated Diagnoses Orde r Schedule REFERRAL TO OCCUPATIONAL THERAPY Referral Routine 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HHS) Hyperglycemia Foot infection Ordered: 11/24/2023 REFERRAL TO PHYSICAL THERAPY Referral Routine 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HHS) Hyperglycemia Foot infection Ordered: 11/24/2023 documented as of this encounter Procedures Procedure Name Priority Date/Time Associated Diagnosis Comments POC GLUCOSE Routine 11/25/2023 6:03 AM CDT [...] POC GLUCOSE Routine 11/20/2023 11:16 AM CDT TC LAB BLOOD DRAW BY VENIPUNCTURE Routine 11/20/2023 8:18 AM CDT PANEL BASIC METABOLIC (BMP) Routine 11/20/2023 8:18 AM CDT POC GLUCOSE Routine 11/20/2023 8:08 AM CDT POC GLUCOSE Routine 11/20/2023 6:30 AM CDT POC GLUCOSE Routine 11/19/2023 9:03 PM CDT POC GLUCOSE Routine 11/19/2023 3:55 PM CDT POC GLUCOSE Routine 11/19/2023 12:03 PM CDT POC GLUCOSE Routine 11/19/2023 11:07 AM CDT POC GLUCOSE Routine 11/19/2023 8:51 AM CDT TC LAB BLOOD DRAW BY VENIPUNCTURE Routine 11/19/2023 7:58 AM CDT PANEL BASIC METABOLIC (BMP) Routine 11/19/2023 7:58 AM CDT POC GLUCOSE Routine 11/19/2023 6:37 AM CDT POC GLUCOSE Routine 11/18/2023 8:54 PM CDT POC GLUCOSE Routine 11/18/2023 8:20 PM CDT POC GLUCOSE Routine 11/18/2023 4:37 PM CDT POC GLUCOSE Routine 11/18/2023 11:03 AM CDT TC LAB BLOOD DRAW BY VENIPUNCTURE Routine 11/18/2023 9:02 AM CDT PANEL BASIC METABOLIC (BMP) Routine 11/18/2023 9:02 AM CDT POC GLUCOSE Routine 11/18/2023 6:21 AM CDT POC GLUCOSE Routine 11/17/2023 8:19 PM [...] AMPLIFICATION Routine 11/17/2023 9:32 AM CDT PC CULTURE,BACTERIAL,DE FINITIVE,AEROBIC ANY SOURCE Routine 11/17/2023 9:32 AM CDT [...] POC GLUCOSE Routine 11/16/2023 10:55 AM CDT PANEL BASIC METABOLIC (BMP) Timed 11/16/2023 8:45 AM CDT PC LAB CBC/PLT Routine 11/16/2023 8:45 AM CDT POC GLUCOSE Routine 11/16/2023 7:37 AM CDT POC GLUCOSE Routine 11/15/2023 9:23 PM CDT POC GLUCOSE Routine 11/15/2023 4:18 PM CDT POC GLUCOSE Routine 11/15/2023 11:19 AM CDT PC HEPATITIS C Routine 11/15/2023 7:39 AM CDT PC HIV-1 AG W/HIV-1 & HIV-2 AB Timed 11/15/2023 7:39 AM CDT PANEL BASIC METABOLIC (BMP) Timed 11/15/2023 7:39 AM CDT CREATININE, SERUM Timed 11/15/2023 7:3 9 AM CDT POC GLUCOSE Routine 11/15/2023 6:16 AM CDT POC GLUCOSE Routine 11/14/2023 8:34 PM CDT POC GLUCOSE Routine 11/14/2023 4:36 PM CDT PC PROTEIN TOTAL Routine 11/14/2023 9:58 AM CDT PC LAB COMPLETE UA Routine 11/14/2023 9: 58 AM CDT POC GLUCOSE Routine 11/14/2023 6:14 AM CDT PC LAB CYSTATIN C Routine 11/14/2023 5:3 0 AM CDT VANCOMYCIN LEVEL Timed 11/14/2023 5:30 AM CDT PHOSPHORUS Routine 11/14/2023 5:30 AM CDT PANEL BASIC METABOLIC (BMP) Routine 11/14/2023 5:30 AM CDT MAGNESIUM Routine 11/14/2023 5:30 AM CDT TC LAB BLOOD DRAW BY VENIPUNCTURE Routine 11/14/2023 5:30 AM CDT POC GLUCOSE Routine 11/13/2023 9:00 PM CDT POC GLUCOSE Routine 11/13/2023 4:44 PM CDT POC GLUCOSE Routine 11/13/2023 10:56 AM CDT PC NEISSERIA GONORRHEA AMPLIFIED PROBE TECHNIQUE Routine 11/13/2023 10:45 AM CDT HEPATITIS B SURFACE ANTIGEN Routine 11/13/2023 10:20 AM CDT HEPATITIS B SURFACE ANTIBODY Routine 11/13/2023 10:20 AM CDT POC GLUCOSE Routine 11/13/2023 6:08 AM CDT PC LAB CYSTATIN C Routine 11/13/2023 5:1 8 AM CDT VANCOMYCIN LEVEL Timed 11/13/2023 5:18 AM CDT PHOSPHORUS Routine 11/13/2023 5:18 AM CDT PANEL BASIC METABOLIC (BMP) Routine 11/13/2023 5:18 AM CDT MAGNESIUM Routine 11/13/2023 5:18 AM CDT PC LAB CBC/PLT Routine 11/13/2023 5:18 AM CDT PC SYPHILIS SCREEN Routine 11/12/2023 11 :10 PM CDT POC GLUCOSE Routine 11/12/2023 8:47 PM CDT POC GLUCOSE Routine 11/12/2023 4:41 PM CDT VANCOMYCIN LEVEL Timed 11/12/2023 1:22 PM CDT PC LAB CYSTATIN C Routine 11/12/2023 11: 36 AM CDT PHOSPHORUS Routine 11/12/2023 11:36 AM CDT PANEL BASIC METABOLIC (BMP) Routine 11/12/2023 11:36 AM CDT MAGNESIUM Routine 11/12/2023 11:36 AM CDT PC LAB CBC/PLT Routine 11/12/2023 11:36 AM CDT POC GLUCOSE Routine 11/12/2023 11:05 AM CDT POC GLUCOSE Routine 11/12/2023 10:09 AM CDT POC GLUCOSE Routine 11/12/2023 9:04 AM CDT POC GLUCOSE Routine 11/12/2023 8:01 AM CDT POC GLUCOSE Routine 11/12/2023 7:00 AM CDT POC GLUCOSE Routine 11/12/2023 6:02 AM CDT POC GLUCOSE Routine 11/12/2023 5:00 AM CDT POC GLUCOSE Routine 11/12/2023 4:02 AM CDT POC GLUCOSE Routine 11/12/2023 3:17 [...] POC GLUCOSE Routine 11/11/2023 6:05 PM CDT POC GLUCOSE Routine 11/11/2023 5:01 PM CDT POC GLUCOSE Routine 11/11/2023 3:47 PM CDT POC GLUCOSE Routine 11/11/2023 3:00 PM CDT IRRIGATION AND DEBRIDEMENT, WOUND Urgent (< 48 hrs) 11/11/2023 2:19 PM CDT 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HHS) POC GLUCOSE Routine 11/11/2023 2:12 PM CDT POC GLUCOSE Routine 11/11/2023 1:02 PM CDT POC GLUCOSE Routine 11/11/2023 12:01 PM CDT POC GLUCOSE Routine 11/11/2023 11:03 AM CDT POC GLUCOSE Routine 11/11/2023 9:59 AM CDT POC GLUCOSE Routine 11/11/2023 8:56 AM CDT POC GLUCOSE Routine 11/11/2023 8:01 AM CDT PC MAGNESIUM, SERUM Routine 11/11/2023 5 :36 AM CDT PC PHOSPHORUS INORGANIC(PHOSPHATE) Routine 11/11/2023 5:36 AM CDT TC LAB BLOOD DRAW BY [...] AMPLIFICATION Routine 11/10/2023 5:13 PM CDT PC CULTURE,BACTERIAL,DE FINITIVE,AEROBIC ANY SOURCE Routine 11/10/2023 5:13 PM CDT 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HHS) PC CULTURE FUNGI ISOLATION W-WO PRESUMPTIVE ID SKIN OTH Routine 11/10/2023 5:13 PM CDT 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HHS) PC CULTURE SPECIMEN, ANAEROBIC Routine 11/10/2023 5:13 PM CDT 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HHS) PC CULTURE, TUBERCLE-OTHER ACID-FAST FUNMI.; ANY SOURCE Routine 11/10/2023 5:13 PM CDT 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HHS) PC CULTURE,BACTERIAL,DE FINITIVE,AEROBIC ANY SOURCE Routine 11/10/2023 5:12 PM CDT 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HHS) PC CULTURE FUNGI ISOLATION W-WO PRESUMPTIVE ID SKIN OTH Routine 11/10/2023 5:12 PM CDT 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HHS) PC CULTURE SPECIMEN, ANAEROBIC Routine 11/10/2023 5:12 PM CDT 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HHS) POC GLUCOSE Routine 11/10/2023 4:28 PM CDT IRRIGATION AND DEBRIDEMENT, WOUND Emergent (OLGA) 11/10/2023 4:16 PM CDT 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HHS) ED EKG (12-LEAD) Routine 11/10/2023 3:[address] OUTSIDE READ MSK/NON NEURO STAT 11/10/2023 3:[address] OUTSIDE READ ABD/PELV STAT 11/10/2023 3:07 PM CDT TC LAB ER STAT URINALYSIS STAT 11/10/2023 2:40 PM CDT PC CULTURE,BACTERIAL,DE FINATIVE,AEROBIC;BLO OD STAT 11/10/2023 2:39 PM CDT PC CULTURE,BACTERIAL,DE FINATIVE,AEROBIC;BLO OD STAT 11/10/2023 2:37 PM CDT PC LAB ED INR STAT 11/10/2023 2:31 PM CDT EXTRA TUBE - SST Routine 11/10/2023 2:31 PM CDT PC TROPONIN QUANTITATIVE STAT 11/10/2023 2:31 PM CDT PC ELECTROLYTES PANEL STAT 11/10/2023 2:31 PM CDT PC LAB CBC W/DIFF & PLT STAT 11/10/2023 2:31 PM CDT TC LAB ER STAT TOTAL HGB STAT 11/10/2023 2:31 PM CDT SED RATE (ESR) STAT 11/10/2023 2:31 PM CDT PANEL HEPATIC FUNCTION STAT 11/10/2023 2:31 PM CDT PC LACTATE (LACTIC ACID) STAT 11/10/2023 2:31 PM CDT PC GASES,BLOOD,ANY COMB OF PH,PCD2,PO2,CO2,HCO2 STAT 11/10/2023 2:31 PM CDT FIBRINOGEN STAT 11/10/2023 2:31 PM CDT ETHANOL (ETOH) LEVEL, BLOOD STAT 11/10/2023 2:31 PM CDT PC LAB PTT STAT 11/10/2023 2:31 PM CDT PRECAUTIONARY TUBE STAT 11/10/2023 2: 29 PM CDT PC ANTIBODY SCREEN,RBC,EACH SERUM TECHNIQUE STAT 11/10/2023 2:29 PM CDT PC LAB RH TYPE GEL STAT 11/10/2023 2: 29 PM CDT ED US CRITICAL CARE STAT 11/10/2023 2 :28 PM CDT documented in this encounter Results * (ABNORMAL) POC GLUCOSE (11/25/2023 6:03 AM CDT) POC Glucose 140(H) 70 - 100 mg/dL [facility] Blood 11/25/2023 6:03 AM CDT Jessica Grullon MD LABORATORY Performing Organization Address City/[facility] [[email or web address]] Co de Phone Number [facility] [address] [place] [address], [place] * (ABNORMAL) POC GLUCOSE (11/24/2023 8:47 PM CDT) POC Glucose 156(H) 70 - 100 mg/dL [facility] Blood 11/24/2023 8:47 PM CDT Jessica Grullon MD LABORATORY Performing Organization Address City/[facility] [[email or web address]] Co de Phone Number [facility] [address] [place] [address], [place] * (ABNORMAL) POC GLUCOSE (11/24/2023 4:56 PM CDT) POC Glucose 177(H) 70 - 100 mg/dL [facility] Blood 11/24/2023 4:56 PM CDT Jessica Grullon MD LABORATORY Performing Organization Address City/[facility] [[email or web address]] Co de Phone Number [facility] [address] [place] [address], [place] * (ABNORMAL) POC GLUCOSE (11/24/2023 11:22 AM CDT) POC Glucose 146(H) 70 - 100 mg/dL [facility] Blood 11/24/2023 11:2 2 AM CDT Jessica Grullon MD LABORATORY [facility] [address] [place] [address], [place] * (ABNORMAL) POC GLUCOSE (11/24/2023 6:03 AM CDT) POC Glucose 147(H) 70 - 100 mg/dL [facility] Blood 11/24/2023 6:03 AM CDT Jessica Grullon MD LABORATORY Performing Organization Address City/[facility]/ZIP Co de Phone Number [facility] [address] [place] [address], [place] * (ABNORMAL) POC GLUCOSE (11/23/2023 7:52 PM CDT) POC Glucose 160(H) 70 - 100 mg/dL [facility] Blood 11/23/2023 7:52 PM CDT Jessica Grullon MD LABORATORY Performing Organization Address City/[facility]/ZIP Co de Phone Number [facility] POINT [facility] [address] [place] [address], [place] * (ABNORMAL) POC GLUCOSE (11/23/2023 4:18 PM CDT) POC Glucose 156(H) 70 - 100 mg/dL [facility] Blood 11/23/2023 4:18 PM CDT Jessica Grullon MD LABORATORY Performing Organization Address City/[facility]/ZIP Co de Phone Number [facility] [address] [place] [address], [place] * (ABNORMAL) POC GLUCOSE (11/23/2023 11:13 AM CDT) POC Glucose 182(H) 70 - 100 mg/dL [facility] Blood 11/23/2023 11:1 3 AM CDT Jessica Grullon MD LABORATORY Performing Organization Address [facility]/ZIP Co de Phone Number [facility] [address] [place] [phone], * (ABNORMAL) PANEL BASIC METABOLIC (BMP) (11/23/2023 8:31 AM CDT) CO2 24 22 - 30 mmol/L [facility] Glucose 192(H) 70 - 100 mg/dL [facility] BUN 20 6 - 20 mg/dL [facility] Creatinine 1.96(H) 0.70 - 1.25 mg/dL [facility] Calcium 8.5(L) 8.6 - 10.0 mg/dL [facility] Sodium 137 135 - 148 mmol/L [facility] Potassium 5.1 3.5 - 5.3 mmol/L [facility] Chloride 103 92 - 108 mmol/L [facility] eGFR (2020 CKD-EPI) 42(L) >=60 ml/min/1.7 3m2 [facility] Comment: The estimated glomerular filtration rate (eGFR) was calculated using the CKD-EPI 2020 creatinine equation, which does not include race as a factor. This equation is validated in individuals 18 years of age and older, and eGFR is normalized to a body surface area of 1.73m^2. AnGap 10 8 - 16 mmol/L [facility] Blood 11/23/2023 8:31 AM CDT 11/23/2023 9:12 AM CDT Zac Churchill MD LABORATORY Performing Organization Address [facility]/ZIP Co de Phone Number [facility] [address] [address] * (ABNORMAL) CBC WITH PLATELET (11/23/2023 8:31 AM CDT) WBC 13.36(H) 4.00 - 10.00 k/cmm [facility] RBC 3.57(L) 4.60 - 6.00 m/cmm [facility] Hgb 10.0(L) 13.1 - 17.5 g/dL [facility] Hematocrit 31.5(L) 40.0 - 51.0 % [facility] MCV 88.2 80.0 - 100.0 fL [facility] MCH 28.0 25.0 - 32.0 pg [facility] MCHC 31.7 31.0 - 36.0 g/dL [facility] RDW 14.4 11.5 - 14.5 % [facility] Plt 492(H) 150 - 400 k/cmm [facility] MPV 9.1 6.5 - 12.5 fL [facility] Blood 11/23/2023 8:31 AM CDT 11/23/2023 9:11 AM CDT Zac Churchill MD LABORATORY Performing Organization Address City/[facility]/ZIP Co de Phone Number [facility] [place] [address] * (ABNORMAL) POC GLUCOSE (11/23/2023 6:43 AM CDT) POC Glucose 121(H) 70 - 100 mg/dL [facility] PO[facility] Blood 11/23/2023 6:43 AM CDT Jessica Grullon MD LABORATORY Performing Organization Address [facility] [[email or web address]] [place] [address], [place] * POC GLUCOSE (11/22/2023 8:28 PM CDT) POC Glucose 95 70 - 100 mg/dL [facility] Blood 11/22/2023 8:28 PM CDT Jessica Grullon MD LABORATORY Performing Organization Address [facility] [[email or web address]] [place] [address], * (ABNORMAL) POC GLUCOSE (11/22/2023 4:10 PM CDT) POC Glucose 176(H) 70 - 100 mg/dL [facility] Blood 11/22/2023 4:10 PM CDT Jessica Grullon MD LABORATORY Performing Organization Address City/[facility] [[email or web address]] Co de Phone Number [facility] [address] [place] [address], [place] * (ABNORMAL) POC GLUCOSE (11/22/2023 11:21 AM CDT) POC Glucose 201(H) 70 - 100 mg/dL [facility] Blood 11/22/2023 11:2 1 AM CDT Jessica Grullon MD LABORATORY Performing Organization Address [facility] de Phone Number [facility] [address] [place] [address], [place] * (ABNORMAL) CYSTATIN C (11/22/2023 9:23 AM CDT) Cystatin C 1.43(H) 0.61 - 0.95 mg/L [facility] eGFR by Cystatin C 51(L) >=60 ml/min/1.7 3m2 [facility] Comment: Estimated GFR calculated using the CKD-EPI Cystatin C (2012) equation. Stage ? Description ?eGFR Range ??1.......Normal or increased eGFR.......90 or Greater ??2.......Mildly decreased eGFR..........60-89 ??3.......Moderately decreased eGFR......30-59 ??4.......Severely decreased eGFR........15-29 ??5.......Kidney Failure.................Less than 15 Blood 11/22/2023 9:23 AM CDT 11/22/2023 2:05 PM CDT Zac Churchill MD LABORATORY Performing Organization Address [facility] [[email or web address] Co de Phone Number [facility] [address] [address] * (ABNORMAL) PANEL BASIC METABOLIC (BMP) (11/22/2023 9:23 AM CDT) Sodium 136 135 - 148 mmol/L [facility] Potassium 5.1 3.5 - 5.3 mmol/L [facility] Chloride 102 92 - 108 mmol/L [facility] CO2 24 22 - 30 mmol/L [facility] AnGap 10 8 - 16 mmol/L [facility] Glucose 254(H) 70 - 100 mg/dL [facility] BUN 20 6 - 20 mg/dL [facility] Creatinine 2.00(H) 0.70 - 1.25 mg/dL [facility] Calcium 8.6 8.6 - 10.0 mg/dL [facility] eGFR (2020 CKD-EPI) 41(L) >=60 ml/min/1.7 3m2 [facility] Comment: The estimated glomerular filtration rate (eGFR) was calculated using the CKD-EPI 2020 creatinine equation, which does not include race as a factor. This equation is validated in individuals 18 years of age and older, and eGFR is normalized to a body surface area of 1.73m^2. Blood 11/22/2023 9:23 AM CDT 11/22/2023 10:28 AM CDT Zac Churchill MD LABORATORY Performing Organization Address [facility] [[email or web address] Co de Phone Number [facility] [address] [address] * (ABNORMAL) CBC WITH PLATELET (11/22/2023 9:23 AM CDT) WBC 12.35(H) 4.00 - 10.00 k/cmm [facility] RBC 3.47(L) 4.60 - 6.00 m/cmm [facility] Hgb 9.8(L) 13.1 - 17.5 g/dL [facility] Hematocrit 30.8(L) 40.0 - 51.0 % [facility] MCV 88.8 80.0 - 100.0 fL [facility] MCH 28.2 25.0 - 32.0 pg [facility] MCHC 31.8 31.0 - 36.0 g/dL [facility] RDW 14.5 11.5 - 14.5 % [facility] Plt 530(H) 150 - 400 k/cmm [facility] MPV 9.3 6.5 - 12.5 fL [facility] Blood 11/22/2023 9:23 AM CDT 11/22/2023 10:28 AM CDT Zac Churchill MD LABORATORY [facility] [place] [address] * (ABNORMAL) POC GLUCOSE (11/22/2023 6:55 AM CDT) POC Glucose 136(H) 70 - 100 mg/dL [facility] Blood 11/22/2023 6:55 AM CDT Jessica Grullon MD LABORATORY Performing Organization Address City/[facility] [[email or web address] Co de Phone Number [facility] [address], * (ABNORMAL) POC GLUCOSE (11/21/2023 8:38 PM CDT) POC Glucose 139(H) 70 - 100 mg/dL [facility] Blood 11/21/2023 8:38 PM CDT Jessica Grullon MD LABORATORY Performing Organization Address City/[facility]/ZIP Co de Phone Number [facility] OF [address] * (ABNORMAL) POC GLUCOSE (11/21/2023 4:13 PM CDT) POC Glucose 141(H) 70 - 100 mg/dL [facility] Blood 11/21/2023 4:13 PM CDT Jessica Grullon MD LABORATORY Performing Organization Address [facility]/ZIP Co de Phone Number [facility] [address] [place] [phone], [place] * (ABNORMAL) POC GLUCOSE (11/21/2023 11:12 AM CDT) POC Glucose 177(H) 70 - 100 mg/dL [facility] Blood 11/21/2023 11:1 2 AM CDT Jessica Grullon MD LABORATORY Performing Organization Address [facility] [[email or web address] Co de Phone Number [facility] [address] [place] [address], [place] * (ABNORMAL) POC GLUCOSE (11/21/2023 6:08 AM CDT) POC Glucose 131(H) 70 - 100 mg/dL [facility] Blood 11/21/2023 6:08 AM CDT Jessica Grullon MD LABORATORY Performing Organization Address [facility] [[email or web address] Co de Phone Number [facility] [address] [place] [address], [place] * (ABNORMAL) PANEL BASIC METABOLIC (BMP) (11/21/2023 4:52 AM CDT) CO2 27 22 - 30 mmol/L [facility] Glucose 128(H) 70 - 100 mg/dL [facility] BUN 21(H) 6 - 20 mg/dL [facility] Creatinine 2.07(H) 0.70 - 1.25 mg/dL [facility] Calcium 8.4(L) 8.6 - 10.0 mg/dL [facility] Sodium 138 135 - 148 mmol/L [facility] Potassium 4.8 3.5 - 5.3 mmol/L [facility] Chloride 103 92 - 108 mmol/L [facility] eGFR (2020 CKD-EPI) 40(L) >=60 ml/min/1.7 3m2 [facility] Comment: The estimated glomerular filtration rate (eGFR) was calculated using the CKD-EPI 2020 creatinine equation, which does not include race as a factor. This equation is validated in individuals 18 years of age and older, and eGFR is normalized to a body surface area of 1.73m^2. AnGap 8 8 - 16 mmol/L [facility] Blood 11/21/2023 4:52 AM CDT 11/21/2023 5:27 AM CDT Zac Churchill MD LABORATORY [facility] [address] [address] * (ABNORMAL) CBC WITH PLATELET (11/21/2023 4:52 AM CDT) Pathologist [facility] WBC 11.48(H) 4.00 - 10.00 k/cmm [facility] RBC 3.21(L) 4.60 - 6.00 m/cmm [facility] Hgb 9.0(L) 13.1 - 17.5 g/dL [facility] Hematocrit 28.7(L) 40.0 - 51.0 % [facility] MCV 89.4 80.0 - 100.0 fL [facility] MCH 28.0 25.0 - 32.0 pg [facility] MCHC 31.4 31.0 - 36.0 g/dL [facility] RDW 14.6(H) 11.5 - 14.5 % [facility] Plt 510(H) 150 - 400 k/cmm [facility] MPV 9.1 6.5 - 12.5 fL [facility] Blood 11/21/2023 4:52 AM CDT 11/21/2023 5:27 AM CDT Zac Churchill MD LABORATORY [facility] [address] [address] * (ABNORMAL) POC GLUCOSE (11/20/2023 9:13 PM CDT) Pathologist [facility] POC Glucose 153(H) 70 - 100 mg/dL [facility] Blood 11/20/2023 9:13 PM CDT Jessica Grullon MD LABORATORY Performing Organization Address City/[facility]/ZIP Co de Phone Number [facility] [address] [phone], [place] * (ABNORMAL) POC GLUCOSE (11/20/2023 3:52 PM CDT) Pathologist [facility] POC Glucose 129(H) 70 - 100 mg/dL [facility] Blood 11/20/2023 3:52 PM CDT Jessica Grullon MD LABORATORY Performing Organization Address [facility] [[email or web address] Co de Phone Number [facility] [address] [phone], [place] * (ABNORMAL) POC GLUCOSE (11/20/2023 11:16 AM CDT) Pathologist [facility] POC Glucose 165(H) 70 - 100 mg/dL [facility] Blood 11/20/2023 11:1 6 AM CDT Jessica Grullon MD LABORATORY Performing Organization Address [facility] [[email or web address] Co de Phone Number [facility] [address] [place] [address], [place] * (ABNORMAL) PANEL BASIC METABOLIC (BMP) (11/20/2023 8:18 AM CDT) Sodium 140 135 - 148 mmol/L [facility] Potassium 4.9 3.5 - 5.3 mmol/L [facility] Chloride 105 92 - 108 mmol/L [facility] CO2 26 22 - 30 mmol/L [facility] AnGap 9 8 - 16 mmol/L [facility] Glucose 147(H) 70 - 100 mg/dL [facility] BUN 21(H) 6 - 20 mg/dL [facility] Creatinine 2.02(H) 0.70 - 1.25 mg/dL [facility] Calcium 8.4(L) 8.6 - 10.0 mg/dL [facility] eGFR (2020 CKD-EPI) 41(L) >=60 ml/min/1.7 3m2 [facility] Comment: The estimated glomerular filtration rate (eGFR) was calculated using the CKD-EPI 2020 creatinine equation, which does not include race as a factor. This equation is validated in individuals 18 years of age and older, and eGFR is normalized to a body surface area of 1.73m^2. Blood 11/20/2023 8:18 AM CDT 11/20/2023 8:40 AM CDT 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 APRN, CNP LABORATORY [facility] [address] [address] * (ABNORMAL) CBC WITH PLTS/AUTO DIFF (11/20/2023 8:18 AM CDT) WBC 10.90(H) 4.00 - 10.00 k/cmm [facility] RBC 3.17(L) 4.60 - 6.00 m/cmm [facility] Hgb 9.0(L) 13.1 - 17.5 g/dL [facility] Hematocrit 28.3(L) 40.0 - 51.0 % [facility] MCV 89.3 80.0 - 100.0 fL [facility] MCH 28.4 25.0 - 32.0 pg [facility] MCHC 31.8 31.0 - 36.0 g/dL [facility] RDW 14.3 11.5 - 14.5 % [facility] Plt 492(H) 150 - 400 k/cmm [facility] MPV 9.2 6.5 - 12.5 fL [facility] Automated Abs Neutrophil 6.51(H) 1.70 - 6.50 k/cmm [facility] Comment:Preliminary ANC, Fin al Result to Follow Abs Immature Granulocyte 0.57(H) 0.00 - 0.09 k/cmm [facility] Comment:The Immature Granulo cyte Absolute count contains metamyelocytes and myelocytes. Abs Neutrophil 6.51(H) 1.70 - 6.50 k/cmm [facility] Abs Lymphocyte 2.07 0.80 - 4.00 k/cmm [facility] Abs Monocyte 1.27(H) 0.20 - 1.00 k/cmm [facility] Abs Eosinophil 0.45 0.00 - 0.60 k/cmm [facility] Abs Basophil 0.03 0.00 - 0.20 k/cmm [facility] Blood 11/20/2023 8:18 AM CDT 11/20/2023 8:40 AM CDT 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 APRN, CNP LABORATORY Performing Organization Address City/[facility]/ZIP Co de Phone Number [facility] [place] [address] * (ABNORMAL) POC GLUCOSE (11/20/2023 8:08 AM CDT) POC Glucose 133(H) 70 - 100 mg/dL [facility] Blood 11/20/2023 8:08 AM CDT Jessica Grullon MD LABORATORY Performing Organization Address City/[facility] [[email or web address] Co de Phone Number [facility] [address] * (ABNORMAL) POC GLUCOSE (11/20/2023 6:30 AM CDT) POC Glucose 153(H) 70 - 100 mg/dL [facility] Blood 11/20/2023 6:30 AM CDT Jessica Grullon MD LABORATORY Performing Organization Address City/[facility]/ZIP Co de Phone Number [facility] [address], * (ABNORMAL) POC GLUCOSE (11/19/2023 9:03 PM CDT) POC Glucose 148(H) 70 - 100 mg/dL [facility] Blood 11/19/2023 9:03 PM CDT Jessica Grullon MD LABORATORY [facility] [address] [place] [phone], [place] * (ABNORMAL) POC GLUCOSE (11/19/2023 3:55 PM CDT) POC Glucose 126(H) 70 - 100 mg/dL [facility] Blood 11/19/2023 3:55 PM CDT Jessica Grullon MD LABORATORY Performing Organization Address City/[facility] [[email or web address] Co de Phone Number [facility] [address] [place] [phone], [place] * (ABNORMAL) POC GLUCOSE (11/19/2023 12:03 PM CDT) POC Glucose 147(H) 70 - 100 mg/dL [facility] Blood 11/19/2023 12:0 3 PM CDT Jessica Grullon MD LABORATORY Performing Organization Address City/[facility] [[email or web address]] Co de Phone Number [facility] [address] [place] [address], [place] * (ABNORMAL) POC GLUCOSE (11/19/2023 11:07 AM CDT) POC Glucose 159(H) 70 - 100 mg/dL [facility] Blood 11/19/2023 11:0 7 AM CDT Jessica Grullon MD LABORATORY Performing Organization Address City/[facility]/ZIP Co de Phone Number [facility] [address] [place] [address], [place] * (ABNORMAL) POC GLUCOSE (11/19/2023 8:51 AM CDT) POC Glucose 185(H) 70 - 100 mg/dL [facility] Blood 11/19/2023 8:51 AM CDT Jessica Grullon MD LABORATORY Performing Organization Address [facility]/ZIP Co de Phone Number [facility] [address] [place] [phone], * (ABNORMAL) PANEL BASIC METABOLIC (BMP) (11/19/2023 7:58 AM CDT) Pathologist [facility] CO2 24 22 - 30 mmol/L [facility] Glucose 221(H) 70 - 100 mg/dL [facility] BUN 25(H) 6 - 20 mg/dL [facility] Creatinine 2.19(H) 0.70 - 1.25 mg/dL [facility] Calcium 7.8(L) 8.6 - 10.0 mg/dL [facility] Sodium 138 135 - 148 mmol/L [facility] Potassium 4.7 3.5 - 5.3 mmol/L [facility] Chloride 104 92 - 108 mmol/L [facility] eGFR (2020 CKD-EPI) 37(L) >=60 ml/min/1.7 3m2 [facility] Comment: The estimated glomerular filtration rate (eGFR) was calculated using the CKD-EPI 2020 creatinine equation, which does not include race as a factor. This equation is validated in individuals 18 years of age and older, and eGFR is normalized to a body surface area of 1.73m^2. AnGap 10 8 - 16 mmol/L [facility] Blood 11/19/2023 7:58 AM CDT 11/19/2023 8:34 AM CDT 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 APRN, CNP LABORATORY Performing Organization Address City/[facility]/ZIP Co de Phone Number [facility] [address] [address] * (ABNORMAL) CBC WITH PLTS/AUTO DIFF (11/19/2023 7:58 AM CDT) WBC 10.66(H) 4.00 - 10.00 k/cmm [facility] RBC 3.14(L) 4.60 - 6.00 m/cmm [facility] Hgb 9.0(L) 13.1 - 17.5 g/dL [facility] Hematocrit 27.7(L) 40.0 - 51.0 % [facility] MCV 88.2 80.0 - 100.0 fL [facility] MCH 28.7 25.0 - 32.0 pg [facility] MCHC 32.5 31.0 - 36.0 g/dL [facility] RDW 14.3 11.5 - 14.5 % [facility] Plt 482(H) 150 - 400 k/cmm [facility] MPV 9.2 6.5 - 12.5 fL [facility] Automated Abs Neutrophil 6.41 1.70 - 6.50 k/cmm [facility] Comment:Preliminary ANC, Fin al Result to Follow Polychromasia Slight [facility] Abs Neutrophil 8.10(H) 1.70 - 6.50 k/cmm [facility] Abs Lymphocyte 1.07 0.80 - 4.00 k/cmm [facility] Abs Monocyte 0.85 0.20 - 1.00 k/cmm [facility] Abs Eosinophil 0.32 0.00 - 0.60 k/cmm [facility] Abs Basophil 0.11 0.00 - 0.20 k/cmm [facility] Abs Myelocyte 0.21(H) 0.00 - 0.00 k/cmm [facility] Blood 11/19/2023 7:58 AM CDT 11/19/2023 8:34 AM CDT 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 APRN, CNP LABORATORY Performing Organization Address City/State/[facility] [[email or web address] Co de Phone Number [facility] [address] [place] [phone] * (ABNORMAL) POC GLUCOSE (11/19/2023 6:37 AM CDT) POC Glucose 212(H) 70 - 100 mg/dL [facility] Blood 11/19/2023 6:37 AM CDT Jessica Grullon MD LABORATORY Performing Organization Address City/[facility]/ZIP Co de Phone Number [facility] [address] [place] [address], [place] * POC GLUCOSE (11/18/2023 8:54 PM CDT) POC Glucose 99 70 - 100 mg/dL [facility] Blood 11/18/2023 8:54 PM CDT Jessica Grullon MD LABORATORY Performing Organization Address City/[facility]/ZIP Co de Phone Number [facility] [address] [place] [address], [place] * (ABNORMAL) POC GLUCOSE (11/18/2023 8:20 PM CDT) POC Glucose 69(L) 70 - 100 mg/dL [facility] Blood 11/18/2023 8:20 PM CDT Jessica Grullon MD LABORATORY Performing Organization Address City/[facility] [[email or web address] Co de Phone Number [facility] [address] [place] [address], [place] * (ABNORMAL) POC GLUCOSE (11/18/2023 4:37 PM CDT) POC Glucose 154(H) 70 - 100 mg/dL [facility] Blood 11/18/2023 4:37 PM CDT Jessica Grullon MD LABORATORY Performing Organization Address City/[facility]/ZIP Co de Phone Number [facility] [address] [place] [address], [place] * (ABNORMAL) POC GLUCOSE (11/18/2023 11:03 AM CDT) POC Glucose 158(H) 70 - 100 mg/dL [facility] Blood 11/18/2023 11:0 3 AM CDT Jessica Grullon MD LABORATORY [facility] [address] [place] [phone], * (ABNORMAL) PANEL BASIC METABOLIC (BMP) (11/18/2023 9:02 AM CDT) Pathologist [facility] CO2 24 22 - 30 mmol/L [facility] Glucose 180(H) 70 - 100 mg/dL [facility] BUN 27(H) 6 - 20 mg/dL [facility] Creatinine 2.17(H) 0.70 - 1.25 mg/dL [facility] Calcium 8.2(L) 8.6 - 10.0 mg/dL [facility] Sodium 137 135 - 148 mmol/L [facility] Potassium 4.5 3.5 - 5.3 mmol/L [facility] Chloride 104 92 - 108 mmol/L [facility] eGFR (2020 CKD-EPI) 37(L) >=60 ml/min/1.7 3m2 [facility] Comment: The estimated glomerular filtration rate (eGFR) was calculated using the CKD-EPI 2020 creatinine equation, which does not include race as a factor. This equation is validated in individuals 18 years of age and older, and eGFR is normalized to a body surface area of 1.73m^2. AnGap 9 8 - 16 mmol/L [facility] Blood 11/18/2023 9:02 AM CDT 11/18/2023 9:21 AM CDT 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 APRN, CNP LABORATORY [facility] [address] [address] * (ABNORMAL) CBC WITH PLTS/AUTO DIFF (11/18/2023 9:02 AM CDT) WBC 10.61(H) 4.00 - 10.00 k/cmm [facility] RBC 3.36(L) 4.60 - 6.00 m/cmm [facility] Hgb 9.4(L) 13.1 - 17.5 g/dL [facility] Hematocrit 29.5(L) 40.0 - 51.0 % [facility] MCV 87.8 80.0 - 100.0 fL [facility] MCH 28.0 25.0 - 32.0 pg [facility] MCHC 31.9 31.0 - 36.0 g/dL [facility] RDW 14.2 11.5 - 14.5 % [facility] Plt 495(H) 150 - 400 k/cmm [facility] MPV 9.2 6.5 - 12.5 fL [facility] Automated Abs Neutrophil 6.34 1.70 - 6.50 k/cmm [facility] Comment:Preliminary ANC, Fin al Result to Follow NUC RBC 1.0(H) 0.0 - 0.0 /100WBC [facility] Polychromasia Slight [facility] Abs Neutrophil 7.32(H) 1.70 - 6.50 k/cmm [facility] Abs Lymphocyte 2.23 0.80 - 4.00 k/cmm [facility] Abs Monocyte 0.85 0.20 - 1.00 k/cmm [facility] Abs Eosinophil 0.21 0.00 - 0.60 k/cmm [facility] Blood 11/18/2023 9:02 AM CDT 11/18/2023 9:21 AM CDT 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 APRN, CNP LABORATORY [facility] [place] [address] * (ABNORMAL) POC GLUCOSE (11/18/2023 6:21 AM CDT) POC Glucose 194(H) 70 - 100 mg/dL [facility] Blood 11/18/2023 6:21 AM CDT Jessica Grullon MD LABORATORY [facility] [address] [place] [address], * (ABNORMAL) POC GLUCOSE (11/17/2023 8:19 PM CDT) POC Glucose 143(H) 70 - 100 mg/dL [facility] Blood 11/17/2023 8:19 PM CDT Jessica Grullon MD LABORATORY Performing Organization Address [facility] [[email or web address]] Co de Phone Number [facility] POINT OF [facility] [address] [place] [address], [place] * (ABNORMAL) POC GLUCOSE (11/17/2023 4:40 PM CDT) [facility] POC Glucose 235(H) 70 - 100 mg/dL [facility] Blood 11/17/2023 4:40 PM CDT Jessica Grullon MD LABORATORY Performing Organization Address [facility] de Phone Number [facility] POINT [facility] [address] [place] [address], [place] * (ABNORMAL) CBC WITH PLTS/AUTO DIFF (11/17/2023 2:35 PM CDT) [facility] WBC 11.70(H) 4.00 - 10.00 k/cmm [facility] RBC 3.37(L) 4.60 - 6.00 m/cmm [facility] Hgb 9.6(L) 13.1 - 17.5 g/dL [facility] Hematocrit 29.6(L) 40.0 - 51.0 % [facility] MCV 87.8 80.0 - 100.0 fL [facility] MCH 28.5 25.0 - 32.0 pg [facility] MCHC 32.4 31.0 - 36.0 g/dL [facility] RDW 14.2 11.5 - 14.5 % [facility] Plt 466(H) 150 - 400 k/cmm [facility] MPV 9.3 6.5 - 12.5 fL [facility] Automated Abs Neutrophil 7.44(H) 1.70 - 6.50 k/cmm [facility] Comment:Preliminary ANC, Fin al Result to Follow Abs Immature Granulocyte 0.52(H) 0.00 - 0.09 k/cmm [facility] Comment:The Immature Granulo cyte Absolute count contains metamyelocytes and myelocytes. Abs Neutrophil 7.44(H) 1.70 - 6.50 k/cmm [facility] [facility] Abs Lymphocyte 1.96 0.80 - 4.00 k/cmm [facility] Abs Monocyte 1.45(H) 0.20 - 1.00 k/cmm [facility] Abs Eosinophil 0.27 0.00 - 0.60 k/cmm [facility] Abs Basophil 0.06 0.00 - 0.20 k/cmm [facility] Polychromasia Slight [facility] Blood 11/17/2023 2:35 PM CDT 11/17/2023 2:57 PM CDT Scar Leyva MD LABORATORY [facility] [address] [address] * (ABNORMAL) PANEL BASIC METABOLIC (BMP) (11/17/2023 2:35 PM CDT) CO2 21(L) 22 - 30 mmol/L [facility] Glucose 252(H) 70 - 100 mg/dL [facility] BUN 30(H) 6 - 20 mg/dL [facility] Creatinine 2.27(H) 0.70 - 1.25 mg/dL [facility] Calcium 8.2(L) 8.6 - 10.0 mg/dL [facility] Sodium 137 135 - 148 mmol/L [facility] Potassium 4.3 3.5 - 5.3 mmol/L [facility] Chloride 104 92 - 108 mmol/L [facility] eGFR (2020 CKD-EPI) 35(L) >=60 ml/min/1.7 3m2 [facility] Comment: The estimated glomerular filtration rate (eGFR) was calculated using the CKD-EPI 2020 creatinine equation, which does not include race as a factor. This equation is validated in individuals 18 years of age and older, and eGFR is normalized to a body surface area of 1.73m^2. AnGap 12 8 - 16 mmol/L [facility] Blood 11/17/2023 2:35 PM CDT 11/17/2023 2:57 PM CDT Scar Leyva MD LABORATORY Performing Organization Address [facility] [[email or web address]] [place] [address] * ANTI XA ASSAY LMW HEPARIN (11/17/2023 11:47 AM CDT) Anti XA LMW <0.04 IU/mL [facility] Comment: Anti Xa Assay LMW Heparin Therapeutic Ranges: 0.4-1.1 IU/mL for twice daily 1.0-2.0 IU/mL for once daily Blood 11/17/2023 11:4 7 AM CDT 11/17/2023 12:01 PM CDT Zac Churchill MD LABORATORY Performing Organization Address [facility] [[email or web address]] Co de Phone Number [facility] [address] [address] * (ABNORMAL) POC GLUCOSE (11/17/2023 11:25 AM CDT) POC Glucose 190(H) 70 - 100 mg/dL [facility] Blood 11/17/2023 11:2 5 AM CDT Jessica Grullon MD LABORATORY Performing Organization Address [facility] [[email or web address]] Co de Phone Number [facility] [address] [place] [address], * XR FOOT LEFT 3 V AP/OBL/LAT* (11/17/2023 10:27 AM CDT) Anatomical Region Laterality Modality Foot Computed Radiogr aphy 11/17/2023 10:2 8 AM CDT Impressions 11/17/2023 10:29 AM CDT 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 Reading Radiologist: Grey Byrd Narrative 11/17/2023 10:29 AM CDT EXAMINATION: XR FOOT LEFT 3 V AP/OBL/LAT* 11/17/2023 10:28 AM Indication: ??post op hallux amp ??. Comparison: 11/16/2023 Findings: In the interval, there is been amputation of the first digit at the level of the metatarsal phalangeal joint. No other changes are appreciated. Vascular calcifications are present. Procedure Note Grey Byrd MD - 11/17/2023 EXAMINATION: XR FOOT LEFT 3 V AP/OBL/LAT* 11/17/2023 10:28 AM Indication: post op hallux amp . Comparison: 11/16/2023 Findings: In the interval, there is been amputation of the first digit atthe level of the metatarsal phalangeal joint. No other changes areappreciated. Vascular calcifications are present. 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 Reading Radiologist: Grey Byrd Che Palomo DPM RAD XRAY * (ABNORMAL) POC GLUCOSE (11/17/2023 10:01 AM CDT) POC Glucose 176(H) 70 - 100 mg/dL [facility] Blood 11/17/2023 10:0 1 AM CDT Jessica Grullon MD LABORATORY [facility] [address] [place] [address], * (ABNORMAL) TISSUE CULTURE:INCLUDES GRAM STAIN (11/17/2023 9:35 AM CDT) Final Report Positive Culture Previous positive called. Rare METHICILLIN RESISTANT Staphylococcus aureus (MRSA) isolated. 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 One colony Staphylococcus lugdunensis isolated. (POS) [facility] Organism METHICILLIN RESISTANT STAPHYLOCOCCUS AUREUS (MRSA)(POS) [facility] Organism STAPHYLOCOCCUS LUGDUNENSIS(POS) [facility] Gram Stain Report Few WBC's seen. No organisms seen. Gram stain electronically reported to and acknowledged by: Che Palomo MD for Podiatric Surgery on 11/17/2023 11:56:22 by Silver Luna MLS [facility] Tissue TOE STRUCTURE / Unknown 11/17/2023 9:35 AM CDT Narrative Organism Antibiotic Method Susceptibility Methicillin-Resistant Staphylococcus aureus (MRSA) Clindamycin VITEK JORDY >=4: Resistant Methicillin-Resistant Staphylococcus aureus (MRSA) Daptomycin VITEK JORDY 0.25: Sensitive Methicillin-Resistant Staphylococcus aureus (MRSA) Erythromycin VITEK JORDY >=8: Resistant Methicillin-Resistant Staphylococcus aureus (MRSA) Levofloxacin VITEK JORDY >=8: Resistant Methicillin-Resistant Staphylococcus aureus (MRSA) Linezolid VITEK JORDY 2: Sensitive Methicillin-Resistant Staphylococcus aureus (MRSA) Oxacillin VITEK JORDY >=4: Resistant Methicillin-Resistant Staphylococcus aureus (MRSA) Tetracycline VITEK JORDY <=1: Sensitive Methicillin-Resistant Staphylococcus aureus (MRSA) Trimethoprim/Sulfamethoxazo le VITEK JORDY <=10: Sensitive Methicillin-Resistant Staphylococcus aureus (MRSA) Vancomycin VITEK JORDY 1: Sensitive Staphylococcus lugdunensis Clindamycin VITEK JORDY >=4: Resistant Staphylococcus lugdunensis Erythromycin VITEK JORDY >=8: Resistant Staphylococcus lugdunensis Levofloxacin VITEK JORDY 0.25: Sensitive Staphylococcus lugdunensis Linezolid VITEK JORDY 1: Sensitive Staphylococcus lugdunensis Oxacillin VITEK JORDY 2: Sensitive Staphylococcus lugdunensis Tetracycline VITEK JORDY <=1: Sensitive Staphylococcus lugdunensis Trimethoprim/ Sulfamethoxazo le VITEK JORDY <=10: Sensitive Staphylococcus lugdunensis Vancomycin VITEK JORDY <=0.5: Sensitive [facility] [facility] MICROBIOLOGY Performing Organization Address [facility] [[email or web address]] Co de Phone Number [address] [address] * FUNGUS CULTURE:INCLUDES SUHAS (11/17/2023 9:35 AM CDT) Final Report No fungus isolated. [facility] SUHAS Prep No fungal elements seen. [facility] Tissue TOE STRUCTURE / Unknown 11/17/2023 9:35 AM CDT [employer] [facility] MICROBIOLOGY Performing Organization Address [facility] [[email or web address]] Co de Phone Number [facility] [address] [address] * ANAEROBE CULTURE (11/17/2023 9:35 AM CDT) Final Report No anaerobes isolated. [facility] Tissue TOE STRUCTURE / Unknown 11/17/2023 9:35 AM CDT Che L Beth DPM LAB MICROBIOLOGY Performing Organization Address [facility] [[email or web address]] Co de Phone Number [facility] [address] [address] * AFB CULTURE:INCLUDES AFB SMEAR (11/17/2023 9:35 AM CDT) Final Report No acid fast bacilli isolated. [facility] Acid Fast Stain No acid fast bacilli seen. [facility] Tissue TOE STRUCTURE / Unknown 11/17/2023 9:35 AM CDT Che L Beth DP LAB MICROBIOLOGY Performing Organization Address [facility] de Phone Number [facility] [address] [address] * M TUBERCULOSIS AMPLIFICATION (11/17/2023 9:32 AM CDT) Final Report M. tuberculosis complex DNA not detected. [facility] Tissue TOE STRUCTURE / Unknown 11/17/2023 9:32 AM CDT 11/18/2023 9:56 AM CDT Comment:1: Left hallux soft tissue dirty Narrative [facility] - 11/18/2023 2:41 PM CDT This assay uses PCR nucleic acid amplification to detect Mycobacterium tuberculosis complex DNA. ??This test was developed and its performance characteristics determined by [facility]. ??It has not been cleared or approved by the U.S. Food and Drug Administration. ??FDA does not require this test to go through premarket FDA review. ??This test is used for clinical purposes. ??It should not be regarded as investigational or for research. ??[facility] is certified under the Clinical Laboratory Improvement Amendments of 1988 (CLIA) as qualified to perform high complexity clinical laboratory testing. Che L Beth [facility] MICROBIOLOGY [facility] [address] [place] [address] * (ABNORMAL) TISSUE CULTURE:INCLUDES GRAM STAIN (11/17/2023 9:32 AM CDT) Final Report Positive Culture Rare METHICILLIN RESISTANT Staphylococcus aureus (MRSA) isolated. 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 Rare Group B beta hemolytic Streptococcus isolated. Pseudomonas aeruginosa isolated in broth only. Results electronically reported to and acknowledged by: Paula Vazquez MD, in [facility] [place], at ?? 11/23/2023 07:49:11 by Pam Alvarado MLS. (POS) [facility] Organism METHICILLIN RESISTANT STAPHYLOCOCCUS AUREUS (MRSA)(POS) [facility] Organism GROUP B BETA HEMOLYTIC STREPTOCOCCUS(POS) [facility] Organism PSEUDOMONAS AERUGINOSA(POS) [facility] Gram Stain Report Positive Gram stain Gram stain electronically reported to and acknowledged by: Che Zheng MD for Podiatric Surgery on 11/17/2023 11:55:10 by Silver Luna MLS Rare WBC's seen. Rare gram positive cocci clusters. (POS) [facility] Tissue TOE STRUCTURE / Unknown 11/17/2023 9:32 AM CDT Narrative Organism Antibiotic Method Susceptibility Methicillin-Resistant Staphylococcus aureus (MRSA) Clindamycin VITEK JORDY >=4: Resistant Methicillin-Resistant Staphylococcus aureus (MRSA) Daptomycin VITEK JORDY 0.5: Sensitive Methicillin-Resistant Staphylococcus aureus (MRSA) Erythromycin VITEK JORDY >=8: Resistant Methicillin-Resistant Staphylococcus aureus (MRSA) Levofloxacin VITEK JORDY >=8: Resistant Methicillin-Resistant Staphylococcus aureus (MRSA) Linezolid VITEK JORDY 2: Sensitive Methicillin-Resistant Staphylococcus aureus (MRSA) Oxacillin VITEK JORDY >=4: Resistant Methicillin-Resistant Staphylococcus aureus (MRSA) Tetracycline VITEK JORDY <=1: Sensitive Methicillin-Resistant Staphylococcus aureus (MRSA) Trimethoprim/Sulfamethoxaz ole VITEK JORDY <=10: Sensitive Methicillin-Resistant Staphylococcus aureus (MRSA) Vancomycin VITEK JORDY 1: Sensitive Pseudomonas aeruginosa Cefepime VITEK JORDY <=1: Sensitive Pseudomonas aeruginosa Ceftazidime VITEK JORDY 4: Sensitive Pseudomonas aeruginosa Levofloxacin VITEK JORDY 0.5: Sensitive Pseudomonas aeruginosa Meropenem VITEK JORDY <=0.25: Sensitive Pseudomonas aeruginosa Piperacillin/Tazobactam VITEK M IC 8: Sensitive Pseudomonas aeruginosa Tobramycin VITEK JORDY <=1: Sensitive Che L Beth DP LAB MICROBIOLOGY Performing Organization Address [facility] [[email or web address]] Co de Phone Number [facility] [address] [address] * FUNGUS CULTURE:INCLUDES SUHAS (11/17/2023 9:32 AM CDT) Final Report No fungus isolated. [facility] SUHAS Prep No fungal elements seen. [facility] Tissue TOE STRUCTURE / Unknown 11/17/2023 9:32 AM CDT Chekatelin Mullent DP LAB MICROBIOLOGY Performing Organization Address [facility] de Phone Number [facility] [address] [address] * (ABNORMAL) ANAEROBE CULTURE (11/17/2023 9:32 AM CDT) Final Report Positive Culture Rare Veillonella parvula group isolated. Rare Actinomyces europaeus isolated. (POS) [facility] Organism VEILLONELLA PARVULA GROUP(POS) [facility] Organism ACTINOMYCES EUROPAEUS(POS) [facility] Tissue TOE STRUCTURE / Unknown 11/17/2023 9:32 AM CDT Chekatelin Mullent DP LAB MICROBIOLOGY Performing Organization Address [facility] [[email or web address]] Co de Phone Number [facility] [address] [address] * AFB CULTURE:INCLUDES AFB SMEAR (11/17/2023 9:32 AM CDT) Final Report No acid fast bacilli isolated. [facility] Acid Fast Stain No acid fast bacilli seen. [facility] Tissue TOE STRUCTURE / Unknown 11/17/2023 9:32 AM CDT Che Palomo DPM LAB MICROBIOLOGY [facility] [address] [place] [address] * SURGICAL PATHOLOGY (11/17/2023 9:31 AM CDT) SURG PATH FINAL ?Surgical Pathology Report Collection Date: ?11/17/2023 09:31 CDT ?Ordering Physician: ? CHE PALOMO Received Date: ?11/17/2023 09:49 CDT ?Accession Number: ? [id number] ? Surgical Pathology Final Report Specimen Type: Toe, left hallux, amputation Final Diagnosis: Toe, left hallux, amputation - Toe amputation with marked skin and soft tissue gangrenous ulcerative necrosis, underlying bone with focal acute osteomyelitis. ??Surgical bone margin negative for acute osteomyelitis. ??Surgical margins viable. See gross description. * ??Report Electronically Signed By ??* ?? Danielito Rodriguez M.D. ?? 11.24.2023 13:15 Clinical History: Clinical Diagnosis: Foot infection DDB/DDB 11.17.2023 10:26 Gross Description: The specimen is received in formalin, labeled with the patient's name and hospital ID number. The specimen is designated left hallux and consists of a 5.4 x 3.7 x 2.9 cm disarticulated digit with a yellow ??thickened ??nail. The digit has a 1.6 cm in length of exposed bone displaying a smooth yellow disarticulation site; soft tissue resection margin inked green. The specimen is surfaced by green-black dry gangrenous skin (45% of the distal ? specimen ) with a 2.5 x 1.5 x 0.8 cm central ulcerated lesion along the nail bed that comes within 0.6 cm of the nearest resection margin and 6.8 cm of the bone disarticulation site. Sectioning the specimen reveals the lesion extends to the underlying soft tissue with moderate osseous softening. Compliance Paralegal sections are submitted on decalcification as follows: A1: Disarticulation margin, en face (decalcified) A2: Proximal soft tissue margin, en face A3: Ulcerated lesion A4: Bone underlying ulcerated lesion (DDB) DDB/DDB 11.17.2023 10:26 Microscopic Description: Microscopic examination performed and findings are reflected in the final diagnosis. I personally examined the relevant preparations and rendered and confirmed the diagnosis. ? Signed - Danielito Rodriguez M.D. Attending Pathologist. DDB/DDB 11.17.2023 10:26 [facility] AP Specimen FOOT STRUCTURE / Unknown 11/17/2023 9:31 AM CDT Comment:OR: Routine gross an d microscopic examination Tissue: Left Hallux Site: left foot Additional clinical information: Che Palomo DPM LAB PATHOLOGY [facility] [address] [address] * (ABNORMAL) POC GLUCOSE (11/17/2023 9:14 AM CDT) POC Glucose 169(H) 70 - 100 mg/dL [facility] Blood 11/17/2023 9:14 AM CDT Jessica Grullon MD LABORATORY [facility] [address] [place] [phone], * ULT ARTERIAL LOWER EXTREMITY LEFT (11/17/2023 [...] Radiologist: Praful Woodson Reading Resident: Douglas Baldwin 11/17/2023 10:02 AM CDT EXAM: Bilateral* Lower [...] Praful Woodson Reading Resident: Douglas Baldwin Zac Churchill MD RAD ULT * (ABNORMAL) POC GLUCOSE (11/17/2023 6:07 AM CDT) POC Glucose 205(H) 70 - 100 mg/dL [facility] Blood 11/17/2023 6:07 AM CDT Jessica Grullon MD LABORATORY Performing Organization Address City/[facility]/ZIP Co de Phone Number [facility] [address] [place] [address], [place] * (ABNORMAL) POC GLUCOSE (11/16/2023 8:46 PM CDT) POC Glucose 141(H) 70 - 100 mg/dL [facility] Blood 11/16/2023 8:46 PM CDT Jessica Grullon MD LABORATORY Performing Organization Address City/[facility] [[email or web address]] Co de Phone Number [facility] PO[facility] [address] [place] [address], [place] * XR FOOT LEFT 3 V AP/OBL/LAT* (11/16/2023 7:20 PM CDT) Anatomical Region Laterality Modality Foot Computed Radiogr aphy 11/16/2023 8:04 PM CDT Impressions 11/16/2023 8:06 PM CDT Impression: Ulcerative changes associated with the first digit. Question subtle associated osseous changes of the first distal phalanx, raising the possibility for osteomyelitis. Reading Radiologist: Jacoby Dover Narrative 11/16/2023 8:06 PM CDT Exam: Left foot x-rays, 11/16/2023 Indication: Evaluate hallux for osteomyelitis. Comparison: None. Findings: AP, oblique, and lateral views of the left foot. Soft tissue defect/ulceration about the medial aspect of the first digit; poor definition of the portion of the medial aspect of the first distal phalanx base and proximal metaphysis, best appreciated on the AP image, raising the possibility for osteomyelitis. Presumed posterior deformity of the second metatarsal, possibly also of the third metatarsal. Degenerative changes of the tarsometatarsal joints with a few subchondral cysts or geodes. Scattered vascular calcifications. Degenerative change of the first MTP joint. Procedure Note Jacoby Dover, DO - 11/16/2023 Exam: Left foot x-rays, 11/16/2023 Indication: Evaluate hallux for osteomyelitis. Comparison: None. Findings: AP, oblique, and lateral views of the left foot. Soft tissuedefect/ulceration about the medial aspect of the first digit; poordefinition of the portion of the medial aspect of the first distal phalanxbase and proximal metaphysis, best appreciated on the AP image, raisingthe possibility for osteomyelitis. Presumed posterior deformity of thesecond metatarsal, possibly also of the third metatarsal. Degenerativechanges of the tarsometatarsal joints with a few subchondral cysts orgeodes. Scattered vascular calcifications. Degenerative change of thefirst MTP joint. IMPRESSION Impression: Ulcerative changes associated with the first digit. Questionsubtle associated osseous changes of the first distal phalanx, raising thepossibility for osteomyelitis. Reading Radiologist: Jacoby Dover Zac Churchill MD RAD XRAY * (ABNORMAL) POC GLUCOSE (11/16/2023 4:14 PM CDT) POC Glucose 148(H) 70 - 100 mg/dL [facility] Blood 11/16/2023 4:14 PM CDT Jessica Grullon MD LABORATORY [facility] [address] [place] [address], * (ABNORMAL) POC GLUCOSE (11/16/2023 10:55 AM CDT) POC Glucose 203(H) 70 - 100 mg/dL [facility] Blood 11/16/2023 10:5 5 AM CDT Jessica Grullon MD LABORATORY Performing Organization Address City/[facility] [[email or web address]] Co de Phone Number [facility] [address] [place] [phone], * (ABNORMAL) CBC WITH PLATELET (11/16/2023 8:45 AM CDT) WBC 13.08(H) 4.00 - 10.00 k/cmm [facility] RBC 3.38(L) 4.60 - 6.00 m/cmm [facility] Hgb 9.6(L) 13.1 - 17.5 g/dL [facility] Hematocrit 28.9(L) 40.0 - 51.0 % [facility] MCV 85.5 80.0 - 100.0 fL [facility] MCH 28.4 25.0 - 32.0 pg [facility] MCHC 33.2 31.0 - 36.0 g/dL [facility] RDW 13.4 11.5 - 14.5 % [facility] Plt 475(H) 150 - 400 k/cmm [facility] MPV 9.5 6.5 - 12.5 fL [facility] Blood 11/16/2023 8:45 AM CDT 11/16/2023 8:58 AM CDT 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 APRN, CNP LABORATORY [facility] [address] [address] * (ABNORMAL) PANEL BASIC METABOLIC (BMP) (11/16/2023 8:45 AM CDT) CO2 21(L) 22 - 30 mmol/L [facility] Glucose 261(H) 70 - 100 mg/dL [facility] BUN 35(H) 6 - 20 mg/dL [facility] Creatinine 2.67(H) 0.70 - 1.25 mg/dL [facility] Calcium 8.3(L) 8.6 - 10.0 mg/dL [facility] Sodium 139 135 - 148 mmol/L [facility] Potassium 4.4 3.5 - 5.3 mmol/L [facility] Chloride 106 92 - 108 mmol/L [facility] eGFR (2020 CKD-EPI) 29(L) >=60 ml/min/1.7 3m2 [facility] Comment: The estimated glomerular filtration rate (eGFR) was calculated using the CKD-EPI 2020 creatinine equation, which does not include race as a factor. This equation is validated in individuals 18 years of age and older, and eGFR is normalized to a body surface area of 1.73m^2. AnGap 12 8 - 16 mmol/L [facility] Blood 11/16/2023 8:45 AM CDT 11/16/2023 8:57 AM CDT 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 APRN, CNP LABORATORY Performing Organization Address City/[facility]/ZIP Co de Phone Number [facility] [place] [address] * (ABNORMAL) POC GLUCOSE (11/16/2023 7:37 AM CDT) POC Glucose 180(H) 70 - 100 mg/dL [facility] Blood 11/16/2023 7:37 AM CDT Jessica Grullon MD LABORATORY Performing Organization Address City/[facility]/ZIP Co de Phone Number [facility] [address] [place], [place] [address], [place] * (ABNORMAL) POC GLUCOSE (11/15/2023 9:23 PM CDT) POC Glucose 144(H) 70 - 100 mg/dL [facility] Blood 11/15/2023 9:23 PM CDT Jessica Grullon MD LABORATORY [facility] [address] [place], [place] [address], [place] * (ABNORMAL) POC GLUCOSE (11/15/2023 4:18 PM CDT) POC Glucose 159(H) 70 - 100 mg/dL [facility] Blood 11/15/2023 4:18 PM CDT Jessica Grullon MD LABORATORY Performing Organization Address [facility] de Phone Number [facility] POINT [facility] [address] [place] [address], * (ABNORMAL) POC GLUCOSE (11/15/2023 11:19 AM CDT) Pathologist [facility] POC Glucose 221(H) 70 - 100 mg/dL [facility] PO[facility] Blood 11/15/2023 11:1 9 AM CDT Jessica Grullon MD LABORATORY Performing Organization Address [facility] de Phone Number [facility] [address] [place] [address], * (ABNORMAL) PANEL BASIC METABOLIC (BMP) (11/15/2023 7:39 AM CDT) [facility] CO2 21(L) 22 - 30 mmol/L [facility] Glucose 176(H) 70 - 100 mg/dL [facility] BUN 38(H) 6 - 20 mg/dL [facility] Creatinine 2.86(H) 0.70 - 1.25 mg/dL [facility] Calcium 7.6(L) 8.6 - 10.0 mg/dL [facility] Sodium 136 135 - 148 mmol/L [facility] Potassium 4.2 3.5 - 5.3 mmol/L [facility] Chloride 102 92 - 108 mmol/L [facility] eGFR (2020 CKD-EPI) 27(L) >=60 ml/min/1.7 3m2 [facility] Comment: The estimated glomerular filtration rate (eGFR) was calculated using the CKD-EPI 2020 creatinine equation, which does not include race as a factor. This equation is validated in individuals 18 years of age and older, and eGFR is normalized to a body surface area of 1.73m^2. AnGap 13 8 - 16 mmol/L [facility] Blood 11/15/2023 7:39 AM CDT 11/15/2023 7:58 AM CDT Shani Shaw MD LABORATORY Performing Organization Address [facility] [[email or web address]] Co de Phone Number [facility] [address] [address] * (ABNORMAL) CREATININE, SERUM (11/15/2023 7:39 AM CDT) Creatinine 2.83(H) 0.70 - 1.25 mg/dL [facility] eGFR (2020 CKD-EPI) 27(L) >=60 ml/min/1.7 3m2 [facility] Comment: The estimated glomerular filtration rate (eGFR) was calculated using the CKD-EPI 2020 creatinine equation, which does not include race as a factor. This equation is validated in individuals 18 years of age and older, and eGFR is normalized to a body surface area of 1.73m^2. Blood 11/15/2023 7:39 AM CDT 11/15/2023 7:58 AM CDT Shani Shaw MD LABORATORY Performing Organization Address [facility] [[email or web address]] Co de Phone Number [facility] [address] [address] * HEPATITIS C ANTIBODY WITH CONDITIONAL PCR (11/15/2023 7:39 AM CDT) Hep C Lilly Nonreactive Nonreactive [facility] Comment:Performance characte ristics have not been established with this test on patients less than 10 years of age. Blood 11/15/2023 7:39 AM CDT 11/15/2023 7:58 AM CDT Zac Churchill MD LABORATORY Performing Organization Address City/[facility] [[email or web address]] Co de Phone Number [facility] [address] [address] * HIV COMBO (11/15/2023 7:39 AM CDT) HIV Antigen-Antibody Nonreactive Nonreactive [facility] Comment:Performance characte ristics have not been established with this test on patients less than 2 years of age. Blood 11/15/2023 7:39 AM CDT 11/15/2023 7:58 AM CDT Zac Churchill MD LABORATORY [facility] [place] [address] * (ABNORMAL) POC GLUCOSE (11/15/2023 6:16 AM CDT) POC Glucose 154(H) 70 - 100 mg/dL [facility] Blood 11/15/2023 6:16 AM CDT Jessica Grullon MD LABORATORY Performing Organization Address City/[facility] [[email or web address]] Co de Phone Number [facility] [place] [address], * (ABNORMAL) POC GLUCOSE (11/14/2023 8:34 PM CDT) POC Glucose 159(H) 70 - 100 mg/dL [facility] Blood 11/14/2023 8:34 PM CDT Jessica Grullon MD LABORATORY Performing Organization Address City/[facility]/ZIP Co de Phone Number [facility] [place] [address], * (ABNORMAL) POC GLUCOSE (11/14/2023 4:36 PM CDT) POC Glucose 182(H) 70 - 100 mg/dL [facility] Blood 11/14/2023 4:36 PM CDT Jessica Grullon MD LABORATORY [facility] [address] [place] [address], * (ABNORMAL) PROTEIN TO CREAT RATIO,URINE (11/14/2023 9:58 AM CDT) TPU 22(H) 0 - 11 mg/dL [facility] Creat Urine 89 30 - 125 mg/dL [facility] Protein to Creat Ratio, Ur 0.25(H) 0.00 - 0.06 mg/mg [facility] Urine 11/14/2023 9:58 AM CDT 11/14/2023 10:06 AM CDT Zac Churchill MD LABORATORY Performing Organization Address [facility]/ZIP Co de Phone Number [facility] [address] [address] * (ABNORMAL) URINALYSIS,TOTAL (11/14/2023 9:58 AM CDT) Pathologist [facility] Color YELLOW YELLOW [facility] Appearance CLEAR CLEAR [facility] Urine Glucose 500(A) NEGATIVE mg/dL [facility] Bili UA NEGATIVE NEGATIVE [facility] Ketones NEGATIVE NEGATIVE [facility] Specific [place] 1.012 1.003 - 1.030 [facility] Blood Ur NEGATIVE Neg-Trace [facility] PH Urine 5.5 5.0 - 7.0 [facility] Protein Ur TRACE Neg-Trace [facility] Urobilinogen NORMAL NORMAL EU/dL [facility] Nitrite Ur NEGATIVE NEGATIVE [facility] Leuk Est NEGATIVE Neg-Trace [facility] WBC Ur 0-5 0 - 5 perHPF [facility] RBC Ur 0-3 0 - 3 perHPF [facility] Mucus 1+ perLPF [facility] Urinalysis Performed at: [facility] Urine 11/14/2023 9:58 AM CDT 11/14/2023 10:06 AM CDT Zac Churchill MD LABORATORY Performing Organization Address City/[facility]/ZIP Co de Phone Number [facility] [address] [address] * (ABNORMAL) POC GLUCOSE (11/14/2023 6:14 AM CDT) [facility] POC Glucose 171(H) 70 - 100 mg/dL [facility] Blood 11/14/2023 6:14 AM CDT Jessica Grullon MD LABORATORY Performing Organization Address [facility]/ZIP Co de Phone Number [facility] [address] [place] [address] * VANCOMYCIN LEVEL (11/14/2023 5:30 AM CDT) [facility] Vancomycin 19.9 mcg/mL [facility] Comment:Expected Range (Trou gh): 10-20 mcg/ml Blood 11/14/2023 5:30 AM CDT 11/14/2023 5:56 AM CDT Zac Churchill MD LABORATORY Performing Organization Address [facility] [[email or web address]] Co de Phone Number [facility] [place] [address] * (ABNORMAL) CYSTATIN C (11/14/2023 5:30 AM CDT) [facility] Cystatin C 1.78(H) 0.61 - 0.95 mg/L [facility] eGFR by Cystatin C 38(L) >=60 ml/min/1.7 3m2 [facility] Comment: Estimated GFR calculated using the CKD-EPI Cystatin C (2012) equation. Stage ? Description ?eGFR Range ??1.......Normal or increased eGFR.......90 or Greater ??2.......Mildly decreased eGFR..........60-89 ??3.......Moderately decreased eGFR......30-59 ??4.......Severely decreased eGFR........15-29 ??5.......Kidney Failure.................Less than 15 Blood 11/14/2023 5:30 AM CDT 11/14/2023 5:56 AM CDT Zac Churchill MD LABORATORY Performing Organization Address City/[facility]/ZIP Co de Phone Number [facility] [address] [address] * PHOSPHORUS (11/14/2023 5:30 AM CDT) Phosphorus 4.3 2.5 - 4.5 mg/dL [facility] Blood 11/14/2023 5:30 AM CDT 11/14/2023 5:56 AM CDT Zac Churchill MD LABORATORY Performing Organization Address [facility] de Phone Number [facility] [address] [address] * (ABNORMAL) PANEL BASIC METABOLIC (BMP) (11/14/2023 5:30 AM CDT) Sodium 136 135 - 148 mmol/L [facility] Potassium 4.1 3.5 - 5.3 mmol/L [facility] Chloride 103 92 - 108 mmol/L [facility] CO2 24 22 - 30 mmol/L [facility] AnGap 9 8 - 16 mmol/L [facility] Glucose 194(H) 70 - 100 mg/dL [facility] BUN 40(H) 6 - 20 mg/dL [facility] Creatinine 3.21(H) 0.70 - 1.25 mg/dL [facility] Calcium 8.2(L) 8.6 - 10.0 mg/dL [facility] eGFR (2020 CKD-EPI) 23(L) >=60 ml/min/1.7 3m2 [facility] Comment: The estimated glomerular filtration rate (eGFR) was calculated using the CKD-EPI 2020 creatinine equation, which does not include race as a factor. This equation is validated in individuals 18 years of age and older, and eGFR is normalized to a body surface area of 1.73m^2. Blood 11/14/2023 5:30 AM CDT 11/14/2023 5:56 AM CDT Zac Churchill MD LABORATORY [facility] [address] [address] * MAGNESIUM (11/14/2023 5:30 AM CDT) Magnesium 2.4 1.6 - 2.6 mg/dL [facility] Blood 11/14/2023 5:30 AM CDT 11/14/2023 5:56 AM CDT Zca Churchill MD LABORATORY Performing Organization Address City/[facility] [[email or web address]] Co de Phone Number [facility] [address] [address] * (ABNORMAL) CBC WITH PLATELET (11/14/2023 5:30 AM CDT) WBC 11.96(H) 4.00 - 10.00 k/cmm [facility] RBC 3.21(L) 4.60 - 6.00 m/cmm [facility] Hgb 9.1(L) 13.1 - 17.5 g/dL [facility] Hematocrit 28.5(L) 40.0 - 51.0 % [facility] MCV 88.8 80.0 - 100.0 fL [facility] MCH 28.3 25.0 - 32.0 pg [facility] MCHC 31.9 31.0 - 36.0 g/dL [facility] RDW 13.4 11.5 - 14.5 % [facility] Plt 372 150 - 400 k/cmm [facility] MPV 9.8 6.5 - 12.5 fL [facility] Blood 11/14/2023 5:30 AM CDT 11/14/2023 5:54 AM CDT Zac Churchill MD LABORATORY [facility] [address] [address] * (ABNORMAL) POC GLUCOSE (11/13/2023 9:00 PM CDT) POC Glucose 206(H) 70 - 100 mg/dL [facility] Blood 11/13/2023 9:00 PM CDT Jessica Grullon MD LABORATORY Performing Organization Address [facility] [[email or web address]] Co de Phone Number [facility] [address] [place] [address], * (ABNORMAL) POC GLUCOSE (11/13/2023 4:44 PM CDT) POC Glucose 181(H) 70 - 100 mg/dL [facility] Blood 11/13/2023 4:44 PM CDT Jessica Grullon MD LABORATORY Performing Organization Address [facility] de Phone Number [facility] [address] [place] [address], [place] * (ABNORMAL) POC GLUCOSE (11/13/2023 10:56 AM CDT) POC Glucose 170(H) 70 - 100 mg/dL [facility] Blood 11/13/2023 10:5 6 AM CDT Jessica Grullon MD LABORATORY Performing Organization Address [facility] [[email or web address]] Co de Phone Number [facility] [address] [place] [address], [place] * URINE CHLAMYDIA AND NEISSERIAE GONORRHOEAE AMPLIFICATION (11/13/2023 10:45 AM CDT) Chlamydia Amplification - Urine Negative Negative [facility] Comment:Test performed by tr anscription mediated amplification and is FDA approved for genital and urine specimens. N. Gonorrhea Amplification - Urine Negative Negative [facility] Comment:Test performed by tr anscription mediated amplification and is FDA approved for genital and urine specimens. Urine 11/13/2023 10:4 5 AM CDT 11/13/2023 3:03 PM CDT Narrative [facility] - 11/15/2023 12:29 PM CDT For Urines, use first void. Zac Churchill MD LABORATORY Performing Organization Address City/[facility] [[email or web address]] Co de Phone Number [facility] [address] [address] * HEPATITIS B SURFACE ANTIGEN (11/13/2023 10:20 AM CDT) HBV Surface Ag Nonreactive Nonreactive [facility] Comment: Testing performed at: [address] [address] Blood 11/13/2023 10:2 0 AM CDT 11/13/2023 10:27 AM CDT Zac Churchill MD LABORATORY Performing Organization Address [facility] [[email or web address]] Co de Phone Number [address] [address] * HEPATITIS B SURFACE ANTIBODY (11/13/2023 10:20 AM CDT) Pathologist [facility] HBsAb Quant <3.31 mIU/ml [facility] Comment:The Hepatitis B Surf gabriella Antibody quantitation is less than 8.00 mIU/mL. There is no evidence of an antibody response to a hepatitis B vaccination or recovery from a hepatitis B infection. This patient is presumed non-immune to hepatitis B. HBsAb Interpretation Nonreactive [facility] Blood 11/13/2023 10:2 0 AM CDT 11/13/2023 10:27 AM CDT Zac Churchill MD LABORATORY Performing Organization Address City/[facility] [[email or web address]] Co de Phone Number [facility] [address] [address] * (ABNORMAL) POC GLUCOSE (11/13/2023 6:08 AM CDT) Pathologist [facility] POC Glucose 154(H) 70 - 100 mg/dL [facility] Blood 11/13/2023 6:08 AM CDT Jessica Grullon MD LABORATORY Performing Organization Address City/[facility] [[email or web address]] Co de Phone Number [facility] [address] [place] [phone], * (ABNORMAL) CYSTATIN C (11/13/2023 5:18 AM CDT) eGFR by Cystatin C 31(L) >=60 ml/min/1.7 3m2 [facility] Comment: Estimated GFR calculated using the CKD-EPI Cystatin C (2012) equation. Stage ? Description ?eGFR Range ??1.......Normal or increased eGFR.......90 or Greater ??2.......Mildly decreased eGFR..........60-89 ??3.......Moderately decreased eGFR......30-59 ??4.......Severely decreased eGFR........15-29 ??5.......Kidney Failure.................Less than 15 Cystatin C 2.11(H) 0.61 - 0.95 mg/L [facility] Blood 11/13/2023 5:18 AM CDT 11/13/2023 5:47 AM CDT Zac Churchill MD LABORATORY Performing Organization Address City/[facility] [[email or web address]] Co de Phone Number [facility] [address] [address] * VANCOMYCIN LEVEL (11/13/2023 5:18 AM CDT) Vancomycin 35.4 mcg/mL [facility] Comment:Expected Range (Trou gh): 10-20 mcg/ml Blood 11/13/2023 5:18 AM CDT 11/13/2023 5:47 AM CDT Zac Churchill MD LABORATORY Performing Organization Address City/[facility]/ZIP Co de Phone Number [facility] [address] [address] * (ABNORMAL) PHOSPHORUS (11/13/2023 5:18 AM CDT) Phosphorus 5.2(H) 2.5 - 4.5 mg/dL [facility] Blood 11/13/2023 5:18 AM CDT 11/13/2023 5:47 AM CDT Zac Churchill MD LABORATORY Performing Organization Address [facility] [[email or web address]] Co de Phone Number [facility] [address] [address] * (ABNORMAL) PANEL BASIC METABOLIC (BMP) (11/13/2023 5:18 AM CDT) AnGap 12 8 - 16 mmol/L [facility] Sodium 137 135 - 148 mmol/L [facility] Chloride 103 92 - 108 mmol/L [facility] BUN 37(H) 6 - 20 mg/dL [facility] Calcium 7.8(L) 8.6 - 10.0 mg/dL [facility] CO2 22 22 - 30 mmol/L [facility] Glucose 168(H) 70 - 100 mg/dL [facility] Creatinine 3.04(H) 0.70 - 1.25 mg/dL [facility] Potassium 4.4 3.5 - 5.3 mmol/L [facility] eGFR (2020 CKD-EPI) 25(L) >=60 ml/min/1.7 3m2 [facility] Comment: The estimated glomerular filtration rate (eGFR) was calculated using the CKD-EPI 2020 creatinine equation, which does not include race as a factor. This equation is validated in individuals 18 years of age and older, and eGFR is normalized to a body surface area of 1.73m^2. Blood 11/13/2023 5:18 AM CDT 11/13/2023 5:47 AM CDT Zac Churchill MD LABORATORY Performing Organization Address [facility] [[email or web address]] Co de Phone Number [facility] [address] [address] * MAGNESIUM (11/13/2023 5:18 AM CDT) Pathologist [facility] Magnesium 2.3 1.6 - 2.6 mg/dL [facility] Blood 11/13/2023 5:18 AM CDT 11/13/2023 5:47 AM CDT Zac Churchill MD LABORATORY [facility] [address] [address] * (ABNORMAL) CBC WITH PLATELET (11/13/2023 5:18 AM CDT) Pathologist [facility] WBC 13.27(H) 4.00 - 10.00 k/cmm [facility] RBC 3.28(L) 4.60 - 6.00 m/cmm [facility] Hgb 9.2(L) 13.1 - 17.5 g/dL [facility] Hematocrit 30.0(L) 40.0 - 51.0 % [facility] MCV 91.5 80.0 - 100.0 fL [facility] MCH 28.0 25.0 - 32.0 pg [facility] MCHC 30.7(L) 31.0 - 36.0 g/dL [facility] RDW 13.5 11.5 - 14.5 % [facility] Plt 317 150 - 400 k/cmm [facility] MPV 10.1 6.5 - 12.5 fL [facility] Blood 11/13/2023 5:18 AM CDT 11/13/2023 5:47 AM CDT Zac Churchill MD LABORATORY [facility] [address] [address] * RPR SYPHILIS SCREEN (11/12/2023 11:10 PM CDT) Pathologist [facility] RPR Screen Non-Reactive Non-Reacti ve [facility] RPR Titer Not Reflexed [facility] Blood 11/12/2023 11:1 0 PM CDT 11/12/2023 11:40 PM CDT Zac Churchill MD LABORATORY Performing Organization Address [facility] [[email or web address]] Co de Phone Number [facility] [place] [address] * (ABNORMAL) POC GLUCOSE (11/12/2023 8:47 PM CDT) POC Glucose 196(H) 70 - 100 mg/dL [facility] Blood 11/12/2023 8:47 PM CDT Jessica Grullon MD LABORATORY Performing Organization Address [facility] de Phone Number [facility] [place] [address], * (ABNORMAL) POC GLUCOSE (11/12/2023 4:41 PM CDT) POC Glucose 172(H) 70 - 100 mg/dL [facility] Blood 11/12/2023 4:41 PM CDT Jessica Grullon MD LABORATORY Performing Organization Address [facility] [place] [address], [place] * VANCOMYCIN LEVEL (11/12/2023 1:22 PM CDT) Vancomycin 47.5 mcg/mL [facility] Comment:Expected Range (Trou gh): 10-20 mcg/ml Blood 11/12/2023 1:22 PM CDT 11/12/2023 1:34 PM CDT Narrative [facility] - 11/12/2023 2:28 PM CDT Peak or trough:->Trough Zac Churchill MD LABORATORY Performing Organization Address [facility] [[email or web address]] Co de Phone Number [facility] [address] [address] * (ABNORMAL) CYSTATIN C (11/12/2023 11:36 AM CDT) Cystatin C 2.20(H) 0.61 - 0.95 mg/L [facility] eGFR by Cystatin C 29(L) >=60 ml/min/1.7 3m2 [facility] Comment: Estimated GFR calculated using the CKD-EPI Cystatin C (2012) equation. Stage ? Description ?eGFR Range ??1.......Normal or increased eGFR.......90 or Greater ??2.......Mildly decreased eGFR..........60-89 ??3.......Moderately decreased eGFR......30-59 ??4.......Severely decreased eGFR........15-29 ??5.......Kidney Failure.................Less than 15 Blood 11/12/2023 11:3 6 AM CDT 11/12/2023 2:53 PM CDT Zac Churchill MD LABORATORY [facility] [address] [address] * (ABNORMAL) PHOSPHORUS (11/12/2023 11:36 AM CDT) Phosphorus 5.8(H) 2.5 - 4.5 mg/dL [facility] Blood 11/12/2023 11:3 6 AM CDT 11/12/2023 11:49 AM CDT Zac Churchill MD LABORATORY [facility] [address] [address] * (ABNORMAL) PANEL BASIC METABOLIC (BMP) (11/12/2023 11:36 AM CDT) Sodium 137 135 - 148 mmol/L [facility] Potassium 4.9 3.5 - 5.3 mmol/L [facility] Chloride 104 92 - 108 mmol/L [facility] CO2 23 22 - 30 mmol/L [facility] AnGap 10 8 - 16 mmol/L [facility] Glucose 160(H) 70 - 100 mg/dL [facility] BUN 29(H) 6 - 20 mg/dL [facility] Creatinine 2.24(H) 0.70 - 1.25 mg/dL [facility] Calcium 7.8(L) 8.6 - 10.0 mg/dL [facility] eGFR (2020 CKD-EPI) 36(L) >=60 ml/min/1.7 3m2 [facility] Comment: The estimated glomerular filtration rate (eGFR) was calculated using the CKD-EPI 2020 creatinine equation, which does not include race as a factor. This equation is validated in individuals 18 years of age and older, and eGFR is normalized to a body surface area of 1.73m^2. Blood 11/12/2023 11:3 6 AM CDT 11/12/2023 11:49 AM CDT Zac Churchill MD LABORATORY [place] [phone] * MAGNESIUM (11/12/2023 11:36 AM CDT) Pathologist [facility] Magnesium 2.3 1.6 - 2.6 mg/dL [facility] Blood 11/12/2023 11:3 6 AM CDT 11/12/2023 11:49 AM CDT Zac Churchill MD LABORATORY [address] [address] * (ABNORMAL) CBC WITH PLATELET (11/12/2023 11:36 AM CDT) Pathologist [facility] WBC 17.87(H) 4.00 - 10.00 k/cmm [facility] RBC 3.40(L) 4.60 - 6.00 m/cmm [facility] Hgb 9.6(L) 13.1 - 17.5 g/dL [facility] Hematocrit 31.1(L) 40.0 - 51.0 % [facility] MCV 91.5 80.0 - 100.0 fL [facility] MCH 28.2 25.0 - 32.0 pg [facility] MCHC 30.9(L) 31.0 - 36.0 g/dL [facility] RDW 13.6 11.5 - 14.5 % [facility] Plt 287 150 - 400 k/cmm [facility] MPV 10.5 6.5 - 12.5 fL [facility] Blood 11/12/2023 11:3 6 AM CDT 11/12/2023 11:48 AM CDT Zac Churchill MD LABORATORY Performing Organization Address City/[facility]/ZIP Co de Phone Number [facility] [place] [address] * (ABNORMAL) POC GLUCOSE (11/12/2023 11:05 AM CDT) POC Glucose 147(H) 70 - 100 mg/dL [facility] Blood 11/12/2023 11:0 5 AM CDT Jessica Grullon MD LABORATORY Performing Organization Address City/[facility]/ZIP Co de Phone Number [facility] [address] [place] [address], * (ABNORMAL) POC GLUCOSE (11/12/2023 10:09 AM CDT) POC Glucose 163(H) 70 - 100 mg/dL [facility] Blood 11/12/2023 10:0 9 AM CDT Jessica Grullon MD LABORATORY Performing Organization Address City/[facility]/ZIP Co de Phone Number [facility] [address] [place] [address], * (ABNORMAL) POC GLUCOSE (11/12/2023 9:04 AM CDT) POC Glucose 146(H) 70 - 100 mg/dL [facility] Blood 11/12/2023 9:04 AM CDT Jessica Grullon MD LABORATORY Performing Organization Address City/[facility] [[email or web address] Co de Phone Number [facility] [address] [place] [phone], [place] * (ABNORMAL) POC GLUCOSE (11/12/2023 8:01 AM CDT) POC Glucose 152(H) 70 - 100 mg/dL [facility] Blood 11/12/2023 8:01 AM CDT Jessica Grullon MD LABORATORY Performing Organization Address City/[facility] [[email or web address] Co de Phone Number [facility] [address] [place] [address], [place] * (ABNORMAL) POC GLUCOSE (11/12/2023 7:00 AM CDT) POC Glucose 147(H) 70 - 100 mg/dL [facility] Blood 11/12/2023 7:00 AM CDT Jessica Grullon MD LABORATORY Performing Organization Address City/[facility]/ZIP Co de Phone Number [facility] [address] [place] [address], [place] * (ABNORMAL) POC GLUCOSE (11/12/2023 6:02 AM CDT) POC Glucose 169(H) 70 - 100 mg/dL [facility] Blood 11/12/2023 6:02 AM CDT Jessica Grullon MD LABORATORY Performing Organization Address City/[facility] [[email or web address]] Co de Phone Number [facility] [address] [place] [address], [place] * (ABNORMAL) POC GLUCOSE (11/12/2023 5:00 AM CDT) POC Glucose 166(H) 70 - 100 mg/dL [facility] Blood 11/12/2023 5:00 AM CDT Jessica Grullon MD LABORATORY Performing Organization Address City/[facility] [[email or web address]] Co de Phone Number [facility] [address] [place] [address], [place] * (ABNORMAL) POC GLUCOSE (11/12/2023 4:02 AM CDT) POC Glucose 178(H) 70 - 100 mg/dL [facility] Blood 11/12/2023 4:02 AM CDT Jessica Grullon MD LABORATORY Performing Organization Address City/[facility] [[email or web address]] Co de Phone Number [facility] [address] [place] [address], [place] * (ABNORMAL) POC GLUCOSE (11/12/2023 3:17 AM CDT) POC Glucose 176(H) 70 - 100 mg/dL [facility] Blood 11/12/2023 3:17 AM CDT Jessica Grullon MD LABORATORY Performing Organization Address City/[facility] [[email or web address]] Co de Phone Number [facility] [address] [place] [address], [place] * (ABNORMAL) POC GLUCOSE (11/12/2023 2:14 AM CDT) POC Glucose 197(H) 70 - 100 mg/dL [facility] Blood 11/12/2023 2:14 AM CDT Jessica Grullon MD LABORATORY [facility] [address] [place] [address], [place] * (ABNORMAL) POC GLUCOSE (11/12/2023 1:02 AM CDT) POC Glucose 195(H) 70 - 100 mg/dL [facility] Blood 11/12/2023 1:02 AM CDT Jessica Grullon MD LABORATORY Performing Organization Address City/[facility] [[email or web address]] Co de Phone Number [facility] [address] [place] [address], [place] * (ABNORMAL) POC GLUCOSE (11/12/2023 12:01 AM CDT) POC Glucose 180(H) 70 - 100 mg/dL [facility] Blood 11/12/2023 12:0 1 AM CDT Jessica Grullon MD LABORATORY Performing Organization Address City/[facility]/ZIP Co de Phone Number [facility] [address] [place] [address], [place] * (ABNORMAL) POC GLUCOSE (11/11/2023 11:01 PM CDT) POC Glucose 185(H) 70 - 100 mg/dL [facility] Blood 11/11/2023 11:0 1 PM CDT Jessica Grullon MD LABORATORY Performing Organization Address City/[facility]/ZIP Co de Phone Number [facility] [address] [place] [address], [place] * (ABNORMAL) POC GLUCOSE (11/11/2023 10:00 PM CDT) POC Glucose 167(H) 70 - 100 mg/dL [facility] Blood 11/11/2023 10:0 0 PM CDT Jessica Grullon MD LABORATORY Performing Organization Address City/[facility]/ZIP Co de Phone Number [facility] [address] [place] [address], [place] * (ABNORMAL) POC GLUCOSE (11/11/2023 9:01 PM CDT) POC Glucose 148(H) 70 - 100 mg/dL [facility] Blood 11/11/2023 9:01 PM CDT Jessica Grullon MD LABORATORY Performing Organization Address [facility] [[email or web address]] Co de Phone Number [facility] [address] [place] [address], [place] * (ABNORMAL) POC GLUCOSE (11/11/2023 8:02 PM CDT) POC Glucose 167(H) 70 - 100 mg/dL [facility] Blood 11/11/2023 8:02 PM CDT Jessica Grullon MD LABORATORY Performing Organization Address [facility] [[email or web address]] Co de Phone Number [facility] [address] [place] [address], [place] * (ABNORMAL) POC GLUCOSE (11/11/2023 7:02 PM CDT) POC Glucose 180(H) 70 - 100 mg/dL [facility] Blood 11/11/2023 7:02 PM CDT Jessica Grullon MD LABORATORY Performing Organization Address City/[facility] [[email or web address]] Co de Phone Number [facility] [address] [place] [address], [place] * (ABNORMAL) PANEL BASIC METABOLIC (BMP) (11/11/2023 6:42 PM CDT) Sodium 138 135 - 148 mmol/L [facility] Potassium 4.3 3.5 - 5.3 mmol/L [facility] Chloride 103 92 - 108 mmol/L [facility] CO2 25 22 - 30 mmol/L [facility] AnGap 10 8 - 16 mmol/L [facility] Glucose 181(H) 70 - 100 mg/dL [facility] BUN 21(H) 6 - 20 mg/dL [facility] Creatinine 1.03 0.70 - 1.25 mg/dL [facility] Calcium 8.0(L) 8.6 - 10.0 mg/dL [facility] eGFR (2020 CKD-EPI) 91 >=60 ml/min/1.7 3m2 [facility] Comment: The estimated glomerular filtration rate (eGFR) was calculated using the CKD-EPI 2020 creatinine equation, which does not include race as a factor. This equation is validated in individuals 18 years of age and older, and eGFR is normalized to a body surface area of 1.73m^2. Blood 11/11/2023 6:42 PM CDT 11/11/2023 6:47 PM CDT Zac Churchill MD LABORATORY [facility] [place] [address] * (ABNORMAL) POC GLUCOSE (11/11/2023 6:05 PM CDT) POC Glucose 173(H) 70 - 100 mg/dL [facility] Blood 11/11/2023 6:05 PM CDT Jessica Grullon MD LABORATORY [facility] [address] [place] [address] * (ABNORMAL) POC GLUCOSE (11/11/2023 5:01 PM CDT) POC Glucose 163(H) 70 - 100 mg/dL [facility] Blood 11/11/2023 5:01 PM CDT Jessica Grullon MD LABORATORY [facility] [address] [place] [address], [place] * (ABNORMAL) POC GLUCOSE (11/11/2023 3:47 PM CDT) POC Glucose 138(H) 70 - 100 mg/dL [facility] Blood 11/11/2023 3:47 PM CDT Jessica Grullon MD LABORATORY Performing Organization Address City/[facility]/ZIP Co de Phone Number [facility] [address] [place] [address], [place] * (ABNORMAL) POC GLUCOSE (11/11/2023 3:00 PM CDT) POC Glucose 147(H) 70 - 100 mg/dL [facility] Blood 11/11/2023 3:00 PM CDT Jessica Grullon MD LABORATORY Performing Organization Address City/[facility] [[email or web address]] Co de Phone Number [facility] [address] [place] [address], [place] * (ABNORMAL) POC GLUCOSE (11/11/2023 2:12 PM CDT) POC Glucose 147(H) 70 - 100 mg/dL [facility] Blood 11/11/2023 2:12 PM CDT Jessica Grullon MD LABORATORY Performing Organization Address City/[facility]/ZIP Co de Phone Number [facility] [address] [place] [address], [place] * (ABNORMAL) POC GLUCOSE (11/11/2023 1:02 PM CDT) POC Glucose 126(H) 70 - 100 mg/dL [facility] Blood 11/11/2023 1:02 PM CDT Jessica Grullon MD LABORATORY [facility] [address] [place] [address], [place] * (ABNORMAL) POC GLUCOSE (11/11/2023 12:01 PM CDT) POC Glucose 141(H) 70 - 100 mg/dL [facility] Blood 11/11/2023 12:0 1 PM CDT Jessica Grullon MD LABORATORY Performing Organization Address City/[facility]/ZIP Co de Phone Number [facility] [address] [place] [address], [place] * (ABNORMAL) POC GLUCOSE (11/11/2023 11:03 AM CDT) POC Glucose 163(H) 70 - 100 mg/dL [facility] Blood 11/11/2023 11:0 3 AM CDT Jessica Grullon MD LABORATORY Performing Organization Address City/[facility]/ZIP Co de Phone Number [facility] [address] [place] [address], [place] * (ABNORMAL) POC GLUCOSE (11/11/2023 9:59 AM CDT) POC Glucose 170(H) 70 - 100 mg/dL [facility] Blood 11/11/2023 9:59 AM CDT Jessica Grullon MD LABORATORY [facility] [address] [place] [address], [place] * (ABNORMAL) POC GLUCOSE (11/11/2023 8:56 AM CDT) POC Glucose 166(H) 70 - 100 mg/dL [facility] Blood 11/11/2023 8:56 AM CDT Jessica Grullon MD LABORATORY Performing Organization Address City/[facility]/ZIP Co de Phone Number [facility] [place] [address], * (ABNORMAL) POC GLUCOSE (11/11/2023 8:01 AM CDT) POC Glucose 172(H) 70 - 100 mg/dL [facility] Blood 11/11/2023 8:01 AM CDT Jessica Grullon MD LABORATORY Performing Organization Address [facility] [place] [address], [place] * ICU PHOSPHORUS (11/11/2023 5:36 AM CDT) Phosphorus 2.9 2.5 - 4.5 mg/dL [facility] Blood 11/11/2023 5:36 AM CDT 11/11/2023 5:45 AM CDT Zac Churchill MD LABORATORY Performing Organization Address City/[facility] [[email or web address]] Co de Phone Number [facility] [address] [address] * (ABNORMAL) ICU MAGNESIUM (11/11/2023 5:36 AM CDT) Magnesium 1.2(L) 1.6 - 2.6 mg/dL [facility] Blood 11/11/2023 5:36 AM CDT 11/11/2023 5:45 AM CDT Zac Churchill MD LABORATORY Performing Organization Address City/[facility] [[email or web address]] Co de Phone Number [facility] [address] [address] * (ABNORMAL) ICU CBC WITH PLTS/AUTO DIFF (11/11/2023 5:36 AM CDT) WBC 17.41(H) 4.00 - 10.00 k/cmm [facility] RBC 2.72(L) 4.60 - 6.00 m/cmm [facility] Hgb 7.8(L) 13.1 - 17.5 g/dL [facility] Hematocrit 24.1(L) 40.0 - 51.0 % [facility] MCV 88.6 80.0 - 100.0 fL [facility] MCH 28.7 25.0 - 32.0 pg [facility] MCHC 32.4 31.0 - 36.0 g/dL [facility] RDW 13.2 11.5 - 14.5 % [facility] Plt 203 150 - 400 k/cmm [facility] MPV 10.1 6.5 - 12.5 fL [facility] Automated Abs Neutrophil 13.29(H) 1.70 - 6.50 k/cmm [facility] Comment:Preliminary ANC, Fin al Result to Follow Judy Cell Slight [facility] Toxic Gran Present [facility] Toxic Vac Present [facility] Abs Neutrophil 13.41(H) 1.70 - 6.50 k/cmm [facility] Abs Lymphocyte 2.96 0.80 - 4.00 k/cmm [facility] Abs Monocyte 0.87 0.20 - 1.00 k/cmm [facility] Abs Basophil 0.17 0.00 - 0.20 k/cmm [facility] Blood 11/11/2023 5:36 AM CDT 11/11/2023 5:45 AM CDT Zac Churchill MD LABORATORY [facility] [address] [place] [address] * (ABNORMAL) ICU PANEL BASIC METABOLIC (BMP) (11/11/2023 5:36 AM CDT) AnGap 9 8 - 16 mmol/L [facility] BUN 15 6 - 20 mg/dL [facility] Calcium 6.0(AA) 8.6 - 10.0 mg/dL [facility] Comment:Critical Result Low Chloride 108 92 - 108 mmol/L [facility] CO2 22 22 - 30 mmol/L [facility] Glucose 135(H) 70 - 100 mg/dL [facility] Creatinine 0.93 0.70 - 1.25 mg/dL [facility] Potassium 3.2(L) 3.5 - 5.3 mmol/L [facility] eGFR (2020 CKD-EPI) 103 >=60 ml/min/1.7 3m2 [facility] Comment: The estimated glomerular filtration rate (eGFR) was calculated using the CKD-EPI 2020 creatinine equation, which does not include race as a factor. This equation is validated in individuals 18 years of age and older, and eGFR is normalized to a body surface area of 1.73m^2. Sodium 139 135 - 148 mmol/L [facility] Blood 11/11/2023 5:36 AM CDT 11/11/2023 5:45 AM CDT Narrative [facility] - 11/11/2023 6:25 AM CDT Critical value for Calcium called to and read back by Sheila Dias RN in STN4 at 11/11/2023 06:24:12 CDT by Larry Fuchs MLS. Zac Churchill MD LABORATORY [facility] [place] [address] * (ABNORMAL) POC GLUCOSE (11/11/2023 5:28 AM CDT) POC Glucose 149(H) 70 - 100 mg/dL [facility] Blood 11/11/2023 5:28 AM CDT Jessica Grullon MD LABORATORY [facility] [address] [place] [address] * (ABNORMAL) POC GLUCOSE (11/11/2023 4:29 AM CDT) POC Glucose 159(H) 70 - 100 mg/dL [facility] Blood 11/11/2023 4:29 AM CDT Jessica Grullon MD LABORATORY [facility] [address] [place] [address], [place] * (ABNORMAL) POC GLUCOSE (11/11/2023 3:28 AM CDT) POC Glucose 153(H) 70 - 100 mg/dL [facility] Blood 11/11/2023 3:28 AM CDT Jessica Grullon MD LABORATORY Performing Organization Address City/[facility] [[email or web address] Co de Phone Number [facility] [address] [place] [address], [place] * (ABNORMAL) POC GLUCOSE (11/11/2023 2:18 AM CDT) POC Glucose 172(H) 70 - 100 mg/dL [facility] Blood 11/11/2023 2:18 AM CDT Jessica Grullon MD LABORATORY Performing Organization Address City/[facility] [[email or web address]] Co de Phone Number [facility] [address] [place] [address], [place] * (ABNORMAL) POC GLUCOSE (11/11/2023 1:03 AM CDT) POC Glucose 171(H) 70 - 100 mg/dL [facility] Blood 11/11/2023 1:03 AM CDT Jessica Grullon MD LABORATORY Performing Organization Address City/[facility]/ZIP Co de Phone Number [facility] [address] [place] [address], [place] * (ABNORMAL) POC GLUCOSE (11/10/2023 11:50 PM CDT) POC Glucose 201(H) 70 - 100 mg/dL [facility] Blood 11/10/2023 11:5 0 PM CDT Jessica Grullon MD LABORATORY Performing Organization Address [facility] [[email or web address]] Co de Phone Number [facility] [address] [place] [address], * (ABNORMAL) POC GLUCOSE (11/10/2023 10:39 PM CDT) POC Glucose 192(H) 70 - 100 mg/dL [facility] Blood 11/10/2023 10:3 9 PM CDT Jessica Grullon MD LABORATORY Performing Organization Address [facility] de Phone Number [facility] [place] [address], * (ABNORMAL) TROP 6H (11/10/2023 10:15 PM CDT) 6H Trop 35 <=35 ng/L [facility] 6H Delta Significan t(A) Not Significant [facility] Blood 11/10/2023 10:1 5 PM CDT 11/10/2023 10:31 PM CDT Jessica Grullon MD LABORATORY Performing Organization Address City/[facility]/ZIP Co de Phone Number [facility] [address] [place] [phone] * (ABNORMAL) POC GLUCOSE (11/10/2023 9:36 PM CDT) POC Glucose 200(H) 70 - 100 mg/dL [facility] Blood 11/10/2023 9:36 PM CDT Jesisca Grullon MD LABORATORY [facility] [address] [place] [address], * (ABNORMAL) POC GLUCOSE (11/10/2023 8:17 PM CDT) POC Glucose 221(H) 70 - 100 mg/dL [facility] Blood 11/10/2023 8:17 PM CDT Jessica Grullon MD LABORATORY Performing Organization Address [facility] [[email or web address]] Co de Phone Number [facility] [address] [place] [address], [place] * (ABNORMAL) POC GLUCOSE (11/10/2023 7:07 PM CDT) Pathologist [facility] POC Glucose 227(H) 70 - 100 mg/dL [facility] Blood 11/10/2023 7:07 PM CDT Jessica Grullon MD LABORATORY Performing Organization Address [facility] [[email or web address]] Co de Phone Number [facility] [address] [place] [address], [place] * (ABNORMAL) TROP 2H (11/10/2023 6:34 PM CDT) 2H Trop 21 <=35 ng/L [facility] 2H Delta Significan t(A) Not Significant [facility] Blood 11/10/2023 6:34 PM CDT 11/10/2023 6:37 PM CDT Jessica Grullon MD LABORATORY Performing Organization Address City/[facility] [[email or web address]] Co de Phone Number [facility] [address] [place] [phone] * (ABNORMAL) LACTATE (LACTIC ACID) (11/10/2023 6:34 PM CDT) Lactate 14.6(H) 0.7 - 2.1 mmol/L [facility] Blood 11/10/2023 6:34 PM CDT 11/10/2023 6:37 PM CDT Narrative [facility] - 11/10/2023 6:41 PM CDT Send specimen on ice! Jessica Grullon MD LABORATORY [facility] [address] [place] [address] * (ABNORMAL) POC GLUCOSE (11/10/2023 6:07 PM CDT) POC Glucose 201(H) 70 - 100 mg/dL [facility] Blood 11/10/2023 6:07 PM CDT Jessica Grullon MD LABORATORY Performing Organization Address [facility] [[email or web address]] Co de Phone Number [facility] [address] [place] [address], * (ABNORMAL) POC GLUCOSE (11/10/2023 5:30 PM CDT) POC Glucose 197(H) 70 - 100 mg/dL [facility] Blood 11/10/2023 5:30 PM CDT Jessica Grullon MD LABORATORY Performing Organization Address [facility] de Phone Number [facility] [address] [place] [address], * M TUBERCULOSIS AMPLIFICATION (11/10/2023 5:13 PM CDT) Final Report M. tuberculosis complex DNA not detected. [facility] Tissue STRUCTURE OF PERINEAL BODY / Unknown 11/10/2023 5:13 PM CDT 11/11/2023 10:50 AM CDT Comment:2:Perineal tissue Narrative [facility] - 11/11/2023 3:22 PM CDT This assay uses PCR nucleic acid amplification to detect Mycobacterium tuberculosis complex DNA. ??This test was developed and its performance characteristics determined by [facility]. ??It has not been cleared or approved by the U.S. Food and Drug Administration. ??FDA does not require this test to go through premarket FDA review. ??This test is used for clinical purposes. ??It should not be regarded as investigational or for research. ??[facility] is certified under the Clinical Laboratory Improvement Amendments of 1988 (CLIA) as qualified to perform high complexity clinical laboratory testing. Zac Churchill MD LAB MICROBIOLOGY Performing Organization Address [facility] [[email or web address]] Co de Phone Number [address] [address] * (ABNORMAL) TISSUE CULTURE:INCLUDES GRAM STAIN (11/10/2023 5:13 PM CDT) Final Report Positive Culture Rare Actinomyces species isolated. Most closely resembles Actinomyces hominis. Rare Staphylococcus pettenkoferi isolated. A member of the coagulase-negative Staphylococci. Staphylococcus epidermidis isolated in broth only. No further work-up. Plates held one week. (POS) [facility] Organism ACTINOMYCES SPECIES(POS) [facility] Organism STAPHYLOCOCCUS PETTENKOFERI(POS) [facility] Organism STAPHYLOCOCCUS EPIDERMIDIS(POS) [facility] Gram Stain Report Positive Gram stain Gram stain electronically reported to and acknowledged by: Fermin Osborn MD for Burn on 11/10/2023 18:43:03 by Silver Luna MLS Rare WBC's seen. Many gram positive cocci in clusters. (POS) [facility] Tissue STRUCTURE OF PERINEAL BODY / Unknown 11/10/2023 5:13 PM CDT Zac Churchill MD LAB MICROBIOLOGY Performing Organization Address [facility] [[email or web address]] Co de Phone Number [facility] [address] [address] * FUNGUS CULTURE:INCLUDES SUHAS (11/10/2023 5:13 PM CDT) Final Report No fungus isolated. [facility] SUHAS Prep No fungal elements seen. [facility] Tissue STRUCTURE OF PERINEAL BODY / Unknown 11/10/2023 5:13 PM CDT Zac Churchill MD LAB MICROBIOLOGY Performing Organization Address [facility] [[email or web address]] Co de Phone Number [address] [phone] * (ABNORMAL) ANAEROBE CULTURE (11/10/2023 5:13 PM CDT) Final Report Positive Culture Many mixed anaerobes present. (POS) [facility] Tissue STRUCTURE OF PERINEAL BODY / Unknown 11/10/2023 5:13 PM CDT Zac Chruchill MD LAB MICROBIOLOGY Performing Organization Address [facility] [[email or web address]] Co de Phone Number [address] [address] * AFB CULTURE:INCLUDES AFB SMEAR (11/10/2023 5:13 PM CDT) Final Report No acid fast bacilli isolated. [facility] Acid Fast Stain No acid fast bacilli seen. [facility] Tissue STRUCTURE OF PERINEAL BODY / Unknown 11/10/2023 5:13 PM CDT Zac Churchill MD LAB MICROBIOLOGY Performing Organization Address [facility] Co de Phone Number [address] [phone] * (ABNORMAL) WOUND CULTURE:GRAM STAIN OPTIONAL (11/10/2023 5:12 PM CDT) Final Report Rare Actinomyces species isolated. Most closely resembles Actinomyces hominis. One colony Staphylococcus epidermidis isolated. (POS) [facility] Organism ACTINOMYCES SPECIES(POS) [facility] Organism STAPHYLOCOCCUS EPIDERMIDIS(POS) [facility] Gram Stain Report Many WBC's seen. Many gram positive cocci in clusters. [facility] Swab STRUCTURE OF PERINEAL BODY / Unknown 11/10/2023 5:12 PM CDT Narrative [facility] - 11/12/2023 3:34 PM CDT Do you want a gram stain: No Zac Churchill MD LAB MICROBIOLOGY Performing Organization Address [facility]/ZIP Co de Phone Number [facility] [address] [address] * FUNGUS CULTURE:INCLUDES SUHAS (11/10/2023 5:12 PM CDT) Final Report No fungus isolated. [facility] SUHAS Prep No fungal elements seen. [facility] Swab STRUCTURE OF PERINEAL BODY / Unknown 11/10/2023 5:12 PM CDT Zac Churchill MD LAB MICROBIOLOGY Performing Organization Address [facility] [[email or web address] Co de Phone Number [facility] [address] [address] * ANAEROBE CULTURE (11/10/2023 5:12 PM CDT) Final Report Moderate mixed anaerobes present. [facility] Swab STRUCTURE OF PERINEAL BODY / Unknown 11/10/2023 5:12 PM CDT Zac Churchill MD LAB MICROBIOLOGY Performing Organization Address [facility] [[email or web address] Co de Phone Number [facility] [address] [address] * (ABNORMAL) POC GLUCOSE (11/10/2023 4:28 PM CDT) POC Glucose 236(H) 70 - 100 mg/dL [facility] Blood 11/10/2023 4:28 PM CDT Jessica Grullon MD LABORATORY Performing Organization Address [facility] [[email or web address] Co de Phone Number [facility] [address] [place] [phone], * ED EKG (12-LEAD) (11/10/2023 3:21 PM CDT) 11/10/2023 3:21 PM CDT Impressions [facility] E[facility] ORDERS - 11/10/2023 3:21 PM CDT SINUS TACHYCARDIA MINIMAL ST DEPRESSION ??[0.025+ mV ST DEPRESSION] ABNORMAL QRS-T ANGLE ??[QRS-T AXIS DIFFERENCE > 60] NONSPECIFIC ST AND T WAVE ABNORMALITY. ABNORMAL ECG P-R Interval 138 ms QRS Interval 90 ms QT Interval 348 ms QTC Interval 405 ms P [place] 35 QRS [place] 1 T Wave [place] 148 Narrative Procedure Note Jessica Grullon MD - 11/10/2023 IMPRESSION [address]INUS TACHYCARDIA MINIMAL ST DEPRESSION [0.025+ mV ST DEPRESSION] ABNORMAL QRS-T ANGLE [QRS-T AXIS DIFFERENCE > 60] NONSPECIFIC ST AND T WAVE ABNORMALITY. 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 I have personally reviewed the image(s) and initial interpretation, and I agree with the findings as documented by the resident/fellow. 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 ??No initial report accompanied the patient and/or Dr. ??JESSICA GRULLON requested an interpretation by me. Technique: ??CT scan of the left lower extremity done on 11/10/2023 with IV contrast. 2 mm axial, sagittal and coronal reconstructions reviewed in soft tissue and bone windows, per the local institution's scanning protocols, which may differ from the [facility] trauma protocols. 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 Additionally there is subcutaneous emphysema in the first digit of the left foot and fat stranding throughout soft tissues extending to the MCP joint. No organized fluid collections. Subchondral cystic changes within the tarsals and metacarpophalangeal joints. ??Severe degenerative changes of the right hip. Procedure Note Praful Woodson MBBS - 11/10/2023 Indication: Patient transferred from [facility] due toFournier's gangrene. No initial report accompanied the patient and/or Dr.ROCHELLE GRULLON requested an interpretation by me. Technique: CT scan of the left lower extremity done on 11/10/2023 with IVcontrast. 2 mm axial, sagittal and coronal reconstructions reviewed insoft tissue and bone windows, per the local institution's scanningprotocols, which may differ from the [facility] trauma protocols. Findings: Subcutaneous emphysema within the perineum and left testiclewith surrounding fat stranding consistent with Demar's gangrene.Additionally there is subcutaneous emphysema in the [...] of the perineum and left testicleconsistent with Demar's gangrene. I have personally reviewed the image(s) and initial interpretation, and Iagree with the findings as documented by the resident/fellow. 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 ??No initial report accompanied the patient and/or Dr. ??JESSICA GRULLON requested an interpretation by me. Technique: ??CT scan of the abdomen/pelvis done on 11/10/2023 ??with IV contrast. ??3 mm axial, sagittal and coronal reconstructions reviewed in soft tissue and bone windows, per the local institution's scanning protocols, which may differ from the [facility] trauma protocols. Comparison: Same day scrotal ultrasound. [...] of the thoracic spine. Procedure Note Praful WoodsonCHERELLE - 11/10/2023 Indication: Patient transferred from [facility] due toFournier's gangrene. No initial report accompanied the patient and/or Dr.ROCHELLE GRULLON requested an interpretation by me. Technique: CT scan of the abdomen/pelvis done on 11/10/2023 with IVcontrast. 3 mm axial, sagittal and coronal reconstructions reviewed insoft tissue and bone windows, per the local institution's scanningprotocols, which may differ from the [facility] trauma protocols. Comparison: Same day scrotal ultrasound. [...] Praful Woodson Reading Resident: Douglas Baldwin Jessica Grullon MD RAD CT BODY * (ABNORMAL) URINALYSIS,TOTAL (11/10/2023 2:40 PM CDT) Color YELLOW YELLOW [facility] Appearance CLEAR CLEAR [facility] Urine Glucose >=1000(A) NEGATIVE mg/dL [facility] Bili UA NEGATIVE NEGATIVE [facility] Ketones TRACE(A) NEGATIVE [facility] Blood Ur LARGE(A) Neg-Trace [facility] PH Urine 6.5 5.0 - 7.0 [facility] Protein Ur >=600(A) Neg-Trace [facility] Urobilinogen NORMAL NORMAL EU/dL [facility] Nitrite Ur NEGATIVE NEGATIVE [facility] Leuk Est NEGATIVE Neg-Trace [facility] WBC Ur 0-5 0 - 5 perHPF [facility] RBC Ur 11-20(A) 0 - 3 perHPF [facility] SQ EPITH 0-5 0 - 5 perHPF [facility] Mucus 1+ perLPF [facility] Bacteria UA PRESENT [facility] Comment:Presence of bacteria does not necessarily indicate a UTI. The presence of bacteria can indicate a non-clean catch urine specimen. Bacteria should be used in conjunction with other UA results and clinical presentation to assist in diagnosing an infection. Urinalysis Performed at: [facility] Specific [place] 1.020 1.003 - 1.030 [facility] Urine 11/10/2023 2:40 PM CDT 11/10/2023 2:47 PM CDT Jessica Grullon MD LABORATORY [facility] [address] [place] [phone] * BLOOD AEROBIC/ANAEROBIC CULTURE (11/10/2023 2:39 PM CDT) Final Report No growth after 5 days. [facility] Blood (Peripheral) 11/10/2023 2:39 PM CDT 11/10/2023 4:09 PM CDT Jessica Grullon MD LAB MICROBIOLOGY Performing Organization Address [facility] [[email or web address]] Co de Phone Number [facility] [address] [address] * BLOOD AEROBIC/ANAEROBIC CULTURE (11/10/2023 2:37 PM CDT) Final Report No growth after 5 days. [facility] Blood (Peripheral) 11/10/2023 2:37 PM CDT 11/10/2023 4:09 PM CDT Jessica Grullon MD LAB MICROBIOLOGY Performing Organization Address [facility] de Phone Number [facility] [address] [address] * (ABNORMAL) SED RATE (ESR) (11/10/2023 2:31 PM CDT) Sed Rate 120(H) 2 - 10 mm/hr [facility] Blood 11/10/2023 2:31 PM CDT 11/10/2023 2:57 PM CDT Jessica Grullon MD LABORATORY Performing Organization Address [facility] Co de Phone Number [facility] [address] [address] * EXTRA TUBE - SST (11/10/2023 2:31 PM CDT) SST TUBE Stored [facility] Comment:SST tubes (Serum Sep arator) are stored in the lab for 3 days from the collection date. Blood 11/10/2023 2:31 PM CDT 11/10/2023 2:43 PM CDT Jessica Grullon MD LABORATORY Performing Organization Address [facility] [[email or web address]] Co de Phone Number [facility] [address] [address] * (ABNORMAL) HS TROPONIN (11/10/2023 2:31 PM CDT) [facility] HS Troponin I 49(H) <=35 ng/L [facility] Blood 11/10/2023 2:31 PM CDT 11/10/2023 2:57 PM CDT Narrative [facility] - 11/10/2023 3:25 PM CDT First Occurrence of the Troponin order is to be drawn Stat by Nursing staff on the unit. Jessica Grullon MD LABORATORY Performing Organization Address City/[facility] [[email or web address]] Co de Phone Number [facility] [address] [address] * ETHANOL (ETOH) LEVEL, BLOOD (11/10/2023 2:31 PM CDT) [facility] Ethanol Negative Negative g/dL [facility] Blood 11/10/2023 2:31 PM CDT 11/10/2023 2:57 PM CDT Jessica Grullon MD LABORATORY Performing Organization Address [facility] [[email or web address] Co de Phone Number [facility] [address] [address] * PTT (APTT) (11/10/2023 2:31 PM CDT) [facility] APTT 32.9 25.0 - 37.0 sec [facility] Blood 11/10/2023 2:31 PM CDT 11/10/2023 2:57 PM CDT Jessica Grullon MD LABORATORY Performing Organization Address [facility] [[email or web address]] Co de Phone Number [facility] [address] [address] * ED INR (11/10/2023 2:31 PM CDT) [facility] ED INR 1.1 0.8 - 1.1 [facility] Comment: Warfarin Therapeutic Range: Standard Intensity: 2.0 - 3.0 High Intensity: 2.5 - 3.5 This is a rapid INR screening test which uses whole blood; results may infrequently differ from plasma INR results. If medication adjustments/dosing are required a PT/INR test ([id number]) should be ordered and performed in the main laboratory. Blood 11/10/2023 2:31 PM CDT 11/10/2023 2:41 PM CDT Jessica Grullon MD LABORATORY Performing Organization Address City/[facility] [[email or web address]] Co de Phone Number [facility] [address] [address] * (ABNORMAL) LACTATE (LACTIC ACID) (11/10/2023 2:31 PM CDT) Pathologist [facility] Lactate 2.3(H) 0.7 - 2.1 mmol/L [facility] Blood 11/10/2023 2:31 PM CDT 11/10/2023 2:45 PM CDT Narrative [facility] - 11/10/2023 2:49 PM CDT Send specimen on ice! Jessica Grullon MD LABORATORY Performing Organization Address [facility] [[email or web address]] Co de Phone Number [facility] [address] [address] * (ABNORMAL) FIBRINOGEN (11/10/2023 2:31 PM CDT) Pathologist [facility] Fibrinogen >1,000(H) 200 - 400 mg/dL [facility] Blood 11/10/2023 2:31 PM CDT 11/10/2023 2:57 PM CDT Jessica Grullon MD LABORATORY Performing Organization Address [facility] [[email or web address]] Co de Phone Number [facility] [address] [address] * (ABNORMAL) PANEL HEPATIC FUNCTION (11/10/2023 2:31 PM CDT) Total Protein 7.1 6.4 - 8.3 g/dL [facility] Albumin 2.9(L) 3.8 - 5.1 g/dL [facility] Bili Total 0.3 <=1.2 mg/dL [facility] Bili Direct <0.2 <=0.3 mg/dL [facility] Alk Phos 104 40 - 129 IU/L [facility] Comment:No reference range e stablished for patients <18 years old. ALT (SGPT) 9 <=41 IU/L [facility] AST(SGOT) 14 5 - 40 IU/L [facility] Blood 11/10/2023 2:31 PM CDT 11/10/2023 2:57 PM CDT Jessica Grullon MD LABORATORY Performing Organization Address City/[facility]/ZIP Co de Phone Number [facility] [address] [address] * (ABNORMAL) ED HEMOGLOBIN TOTAL (ED ONLY) (11/10/2023 2:31 PM CDT) Hgb 12.4(L) 13.1 - 17.5 g/dL [facility] Blood 11/10/2023 2:31 PM CDT 11/10/2023 2:45 PM CDT Jessica Grullon MD LABORATORY Performing Organization Address City/[facility]/ZIP Co de Phone Number [facility] [address] [address] * (ABNORMAL) ED CHEMISTRY LABS(NA,K,CL,CO2,GLU,CREAT,CA-IONIZED,ANION GAP) (11/10/2023 2:31 PM CDT) Sodium 133(L) 135 - 148 mmol/L [facility] Potassium 3.7 3.5 - 5.3 mmol/L [facility] Chloride 93 92 - 108 mmol/L [facility] AnGap 12 8 - 16 mmol/L [facility] Glucose 304(H) 70 - 100 mg/dL [facility] ICA, Actual 4.14(L) 4.40 - 5.20 mg/dL [facility] ICA, pH Corrected 4.29(L) 4.40 - 5.20 mg/dL [facility] Creatinine 0.98 0.70 - 1.25 mg/dL [facility] BICARB 27(H) 22 - 26 mEq/L [facility] eGFR (2020 CKD-EPI) 97 >=60 ml/min/1.7 3m2 [facility] Comment: The estimated glomerular filtration rate (eGFR) was calculated using the CKD-EPI 2020 creatinine equation, which does not include race as a factor. This equation is validated in individuals 18 years of age and older, and eGFR is normalized to a body surface area of 1.73m^2. Blood 11/10/2023 2:31 PM CDT 11/10/2023 2:45 PM CDT Jessica Grullon MD LABORATORY [facility] [address] [address] * (ABNORMAL) CBC WITH PLTS/AUTO DIFF (11/10/2023 2:31 PM CDT) WBC 21.95(H) 4.00 - 10.00 k/cmm [facility] RBC 4.26(L) 4.60 - 6.00 m/cmm [facility] Hgb 12.0(L) 13.1 - 17.5 g/dL [facility] Hematocrit 36.3(L) 40.0 - 51.0 % [facility] MCV 85.2 80.0 - 100.0 fL [facility] MCH 28.2 25.0 - 32.0 pg [facility] MCHC 33.1 31.0 - 36.0 g/dL [facility] RDW 12.9 11.5 - 14.5 % [facility] Plt 262 150 - 400 k/cmm [facility] MPV 10.1 6.5 - 12.5 fL [facility] Automated Abs Neutrophil 18.29(H) 1.70 - 6.50 k/cmm [facility] Comment:Preliminary ANC, Fin al Result to Follow Abs Immature Granulocyte 0.26(H) 0.00 - 0.09 k/cmm [facility] Comment:The Immature Granulo cyte Absolute count contains metamyelocytes and myelocytes. Abs Neutrophil 18.29(H) 1.70 - 6.50 k/cmm [facility] Abs Lymphocyte 1.53 0.80 - 4.00 k/cmm [facility] Abs Monocyte 1.83(H) 0.20 - 1.00 k/cmm [facility] Abs Eosinophil 0.00 0.00 - 0.60 k/cmm [facility] Abs Basophil 0.04 0.00 - 0.20 k/cmm [facility] Polychromasia Slight [facility] Dohle Body Present [facility] Toxic Vac Present [facility] Blood 11/10/2023 2:31 PM CDT 11/10/2023 2:57 PM CDT Jessica Grullon MD LABORATORY Performing Organization Address [facility] [[email or web address]] Co de Phone Number [address] [address] * (ABNORMAL) BLOOD GASES (11/10/2023 2:31 PM CDT) PH [place] 7.47(H) 7.32 - 7.42 [facility] PCO2 Mayo 38(L) 41 - 51 mmHG [facility] PO2 [place] 75(H) 25 - 40 mmHG [facility] Bicarb Mayo 27 24 - 28 mEq/L [facility] O2 Sat Mayo 96 % [facility] Base Exc [place] 3.7(H) -10.0 - 2.0 mmol/L [facility] Blood Venous 11/10/2023 2:31 PM CDT 11/10/2023 2:45 PM CDT Jessica Grullon MD LABORATORY Performing Organization Address [facility] [[email or web address]] Co de Phone Number [facility] [address] [address] * ANTIBODY SCREEN (11/10/2023 2:29 PM CDT) Lilly Screen Negative [facility] Blood 11/10/2023 2:29 PM CDT 11/10/2023 2:49 PM CDT Jessica Grullon MD LAB TRANSFUSION SER VICES [facility] [address] [address] * BLOOD TYPING-ABO/RH (11/10/2023 2:29 PM CDT) ABORHG A POS [facility] Blood 11/10/2023 2:29 PM CDT 11/10/2023 2:49 PM CDT Jessica Grullon MD LAB TRANSFUSION SER VICES Performing Organization Address [facility] [[email or web address]] Co de Phone Number [facility] [address] [address] * PRECAUTIONARY TUBE (11/10/2023 2:29 PM CDT) Prec Tube Precautionary Blood Bank Specimen Received. [facility] Blood 11/10/2023 2:29 PM CDT 11/10/2023 2:49 PM CDT Jessica Grullon MD LAB TRANSFUSION SER VICES Performing Organization Address [facility] [[email or web address]] Co de Phone Number [facility] [address] [address] * ED US CRITICAL CARE (11/10/2023 2:28 PM CDT) Anatomical Region Laterality Modality Ultrasound Narrative 11/10/2023 3:16 PM CDT ED Critical Care Resuscitative Ultrasound ED Cardiac Ultrasound Body Areas Imaged: Heart, Chest Wall/Lungs, and Inferior Vena Cava Indications:Shock/Sepsis Window: Subxiphoid, Parasternal Short [place], Parasternal Long [place], Apical 4-Chamber, and Bilateral Lungs Findings: The [...] Lawrence Saha MD, 11/10/2023 3:16 PM Jessica Grullon MD RAD ED ULT documented in this encounter 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 Hyperglycemia Other abnormal glucose At risk for sexually transmitted infection due to unprotected sex Foot infection Unspecified local infection of skin and subcutaneous tissue Hyperglycemia Other abnormal glucose At risk for sexually transmitted infection due to unprotected sex documented in this encounter Admitting Diagnoses Diagnosis 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 Hyperglycemia Other abnormal glucose documented in this encounter Administered Medications Inactive Administered Medications - up to 3 most recent administrations Medication Order MAR Action Action Date Dose Rate Site acetaminophen (TYLENOL) tablet 650 mg 650 mg, Oral, Q4H PRN, Starting on Wed11/10/23 at 2344, Until Wed11/11/23 at 1027, Temp > 38.6 C, Mild Pain (Use First) Given 11/11/2023 8:42 AM CDT 650 mg acetaminophen (TYLENOL) tablet 975 mg 975 mg, Oral, ONE TIME, 1 dose, On Wed11/10/23 at 1455 Given 11/10/2023 2:45 PM CDT 975 mg acetaminophen (TYLENOL) tablet 975 mg 975 mg, Oral, TID, First dose (after last modification) on Wed11/11/23 at 1030, Until Discontinued Given 11/25/2023 8:47 AM CDT 975 mg Given 11/24/2023 8:16 PM CDT 975 mg Given 11/24/2023 2:29 PM CDT 975 mg albuterol (ACCUNEB;VENTOLIN) 2.5 mg/3 mL inhalation solution 2.5 mg 2.5 mg, Nebulization, Once, 1 dose, On Wed11/11/23 at 1555 Given 11/11/2023 4:01 PM CDT 2.5 mg amLODIPine (NORVASC) tablet 10 mg 10 mg, Oral, DAILY, First dose (after last modification) on Wed11/17/23 at 2110, Until Discontinued Given 11/24/2023 8:16 PM CDT 10 mg Given 11/23/2023 8:29 PM CDT 10 mg Given 11/22/2023 8:35 PM CDT 10 mg bisacodyl (DULCOLAX) suppository 10 mg 10 mg, Rectal, DAILY PRN, Starting on Wed11/11/23 at 1026, Until Wed11/25/23 at 1502, Constipation (Use Second) calcium gluconate 10% 1 g in NaCl 0.9% 50 mL IVPB 1 g, Intravenous, ONE TIME, 1 dose, On Wed11/11/23 at 0640 11/11/2023 10:09 AM CDT 1 g 12 0 mL/hr carvedilol (COREG) tablet 6.25 mg 6.25 mg, Oral, BID, First dose on Wed11/17/23 at 2110, Until Discontinued Given 11/17/2023 10:16 PM CDT 6.25 mg cefTRIAXone (ROCEPHIN) 2 g in NaCl 0.9% 100 mL IVPB 2 g, Indication (Select One): Infection - Confirmed, SITE (Select all that apply): Skin/Soft Tissue, Cultures Ordered? Yes, Intravenous, Q24H, 5 doses, First dose on Wed11/13/23 at 0900, Last dose on Wed11/17/23 at 0900 New 11/16/2023 8:20 AM CDT 2 g 200 mL/hr 11/15/2023 9:05 AM CDT 2 g 200 mL/hr 11/14/2023 9:40 AM CDT 2 g 200 mL/hr clindamycin (CLEOCIN) IVPB 900 mg 900 mg, Indication (Select One): Infection - Confirmed, SITE (Select all that apply): Skin/Soft Tissue, Cultures Ordered? Yes, Intravenous, Q 8H, First dose on Wed11/10/23 at 1830, Until Discontinued New 11/12/2023 5:24 PM CDT 900 mg 50 mL/ hr 11/12/2023 9:21 AM CDT 900 mg 50 mL/hr 11/12/2023 12:23 AM CDT 900 mg 50 mL/hr cyclobenzaprine (FLEXERIL) tablet 10 mg 10 mg, Oral, TID, First dose on Wed11/11/23 at 1200, Until Discontinued Given 11/25/2023 8:47 AM CDT 10 mg Given 11/24/2023 8:16 PM CDT 10 mg Given 11/24/2023 2:30 PM CDT 10 mg DC MED REC REVIEW BY PHARMACY Discharge Date: 11/24/2023, Discharge Location: [facility], Anticipated Discharge Time: After 2 pm, Discharge Medication Orders: DC Med Orders Final, Does not apply, PROTOCOL, Starting on Wed11/24/23 at 1319, Until Wed11/25/23 at 1502 enoxaparin (LOVENOX) 40 mg/0.4 mL injection 40 mg 40 mg, Subcutaneous, Q12H, First dose (after last modification) on Wed11/12/23 at 1130, Until Discontinued Given 11/16/2023 8:21 AM CDT 40 mg Left Lower Quadrant Abdomen Given 11/15/2023 8:22 PM CDT 40 mg Ab dominal Tissue Given 11/15/2023 8:12 AM CDT 40 mg Ab dominal Tissue escitalopram (LEXAPRO) tablet 20 mg 20 mg, Oral, DAILY, First dose on Wed11/12/23 at 1150, Until Discontinued Given 11/12/2023 12:00 PM CDT 20 mg escitalopram (LEXAPRO) tablet 20 mg 20 mg, Oral, BEDTIME, First dose (after last modification) on Wed11/13/23 at 2000, Until Discontinued Given 11/24/2023 8:16 PM CDT 20 mg Given 11/23/2023 8:29 PM CDT 20 mg Given 11/22/2023 8:35 PM CDT 20 mg fentaNYL (SUBLIMAZE) 100 mcg/2mL injection 50 mcg 50 mcg, IV Push, PACU PRN Q5MIN, 4 doses, Starting on Wed11/10/23 at 1801, Until Wed11/11/23 at 0545, Moderate Pain (Use First) Given 11/10/2023 7:28 PM CDT 25 mcg Given 11/10/2023 6:59 PM CDT 50 mcg Given 11/10/2023 6:42 PM CDT 25 mcg GABApentin (NEURONTIN) tablet 600 mg 600 mg, Oral, TID, First dose on Wed11/11/23 at 1200, Until Discontinued Given 11/13/2023 8:23 AM CDT 600 mg Given 11/12/2023 8:31 PM CDT 600 mg Given 11/12/2023 1:40 PM CDT 600 mg heparin 33968 UNITS/mL injection 7,500 UNITS 7,500 UNITS, Subcutaneous, Q 8H, First dose on Wed11/17/23 at 1505, Until Discontinued Given 11/25/2023 6:46 AM CDT 7,500 UNITS Left Upper Arm Given 11/24/2023 10:24 PM CDT 7,500 UNITS Left Upper Arm Given 11/24/2023 2:29 PM CDT 7,500 UNITS A bdominal Tissue hydrALAZINE (APRESOLINE) 20 mg/mL injection 10 mg 10 mg, IV Push, Q6H PRN, Starting on Wed11/14/23 at 0458, Until Wed11/14/23 at 0856, Other (specify), SBP > 170 Given 11/14/2023 5:16 AM CDT 10 mg hydrALAZINE (APRESOLINE) 20 mg/mL injection 10 mg 10 mg, IV Push, ONE TIME, 1 dose, On Wed11/16/23 at 1550 Given 11/16/2023 4:02 PM CDT 10 mg hydrALAZINE (APRESOLINE) 20 mg/mL injection 10 mg 10 mg, IV Push, Q4H PRN, Starting on Wed11/18/23 at 0418, Until Wed11/21/23 at 0746, SBP greater than 180 mmHg Given 11/20/2023 4:04 PM CDT 10 mg Given 11/19/2023 4:32 PM CDT 10 mg Given 11/19/2023 4:22 AM CDT 10 mg hydrALAZINE (APRESOLINE) 20 mg/mL injection 20 mg 20 mg, IV Push, ONE TIME, 1 dose, On Wed11/16/23 at 1110 Given 11/16/2023 11:37 AM CDT 20 mg hydrALAZINE (APRESOLINE) tablet 10 mg 10 mg, Oral, Q6H PRN, Starting on Wed11/14/23 at 1111, Until Wed11/16/23 at 1111, Other (specify), SBP>180 Given 11/16/2023 8:25 AM CDT 10 mg hydrALAZINE (APRESOLINE) tablet 25 mg 25 mg, Oral, Q4H PRN, Starting on Wed11/16/23 at 1939, Until Wed11/17/23 at 2112, Other (specify), SBP>180 Given 11/17/2023 9:01 PM CDT 25 mg HYDROmorphone PF (DILAUDID) 1 mg/mL injection 0.2 mg 0.2 mg, IV Push, Q4H PRN, Starting on Wed11/10/23 at 2344, Until Wed11/11/23 at 1027, Severe Pain (Use First) Given 11/10/2023 11:45 PM CDT 0.2 mg HYDROmorphone PF (DILAUDID) 1 mg/mL injection 0.4 mg 0.4 mg, IV Push, PACU PRN Q5MIN, 5 doses, Starting on Wed11/10/23 at 1801, Until Wed11/11/23 at 0545, Severe Pain (Use First) Given 11/10/2023 9:42 PM CDT 0.4 mg Given 11/10/2023 7:42 PM CDT 0.4 mg HYDROmorphone PF (DILAUDID) 1 mg/mL injection 0.4 mg 0.4 mg, IV Push, PACU PRN Q5MIN, 5 doses, Starting on Wed11/11/23 at 1532, Until Wed11/11/23 at 1647, Severe Pain (Use First) Given 11/11/2023 4:05 PM CDT 0.4 mg Given 11/11/2023 3:56 PM CDT 0.4 mg HYDROmorphone PF (DILAUDID) 1 mg/mL injection 0.4 mg 0.4 mg, IV Push, PACU PRN Q5MIN, 5 doses, Starting on Wed11/17/23 at 1003, Until Wed11/17/23 at 1106, Severe Pain (Use First) Given 11/17/2023 10:15 AM CDT 0.4 mg HYDROmorphone PF (DILAUDID) 1 mg/mL injection 0.5-1 mg 0.5-1 mg, IV Push, Q4H PRN, Starting on Wed11/11/23 at 1023, Until Wed11/16/23 at 0850, Severe Pain (Use First) Given 11/12/2023 9:03 AM CDT 0.5 mg HYDROmorphone PF (DILAUDID) 1 mg/mL injection 1 mg 1 mg, IV Push, ONE TIME, 1 dose, On Wed11/10/23 at 1505 Given 11/10/2023 3:04 PM CDT 1 mg insulin ASPART (NovoLOG) FlexPen Insulin Order [...] provider, Subcutaneous, TID AC, First dose on Wed11/12/23 at 1150, Until Discontinued Given 11/25/2023 8:49 AM CDT 8 UNITS Abdominal Tissue Given 11/24/2023 5:40 PM CDT 10 UNITS Ri ght Upper Arm Given 11/24/2023 11:52 AM CDT 14 UNITS A bdominal Tissue insulin ASPART (NovoLOG) FlexPen Glucose 201-250 (Units): 0, Glucose 251-300 (Units): 0, Glucose 301-350 (Units): 0, Glucose 351-400 (Units): 6, Glucose 401-450 (Units): 8, Glucose 451-500 (Units): 10, Glucose GREATER THAN 501 (Units): 12, Glucose GREATER THAN 501 instructions: Call provider, Subcutaneous, BEDTIME MAY REPEAT ONCE, First dose on Wed11/12/23 at 2100, Until Discontinued insulin GLARGINE (LANTUS) 25 UNITS injection vial 25 UNITS, Subcutaneous, Q24H, First dose on Wed11/12/23 at 1200, Until Discontinued Given 11/15/2023 11:43 AM CDT 25 UNITS Abdominal Tissue Given 11/14/2023 12:10 PM CDT 25 UNITS A bdominal Tissue Given 11/13/2023 11:59 AM CDT 25 UNITS A bdominal Tissue insulin GLARGINE (LANTUS) 28 UNITS injection vial 28 UNITS, Subcutaneous, Q24H, First dose (after last modification) on Wed11/16/23 at 1230, Until Discontinued Given 11/17/2023 4:06 PM CDT 28 UNITS Abdominal Tissue Given 11/16/2023 11:37 AM CDT 28 UNITS L eft Lower Quadrant Abdomen insulin GLARGINE (LANTUS) 30 UNITS injection vial 30 UNITS, Subcutaneous, Q24H, First dose (after last modification) on Wed11/18/23 at 1230, Until Discontinued Given 11/24/2023 11:52 AM CDT 30 UNITS Abdominal Tissue Given 11/23/2023 12:50 PM CDT 30 UNITS L eft Lower Quadrant Abdomen Given 11/22/2023 11:47 AM CDT 30 UNITS A bdominal Tissue insulin REGULAR (HumuLIN R) 1 Units/mL infusion 0-25 Units/hr (0-25 mL/hr), Start Infusion at (UNITS/hr): 4, Intravenous, CONTINUOUS, Starting on Wed11/10/23 at 1500, Until Wed11/12/23 at 1146 Rate Verify 11/12/2023 11:15 AM CDT 2 Units/hr 2 mL/hr Rate Verify 11/12/2023 10:41 AM CDT 2 Units/hr 2 mL/hr Rate Verify 11/12/2023 9:10 AM CDT 2 Units/hr 2 mL/hr lactated ringer's bolus 1,000 mL 1,000 mL, Intravenous, Administer over 30 Minutes, IV BOLUS, 1 dose, On Wed11/10/23 at 1455 New Bag 11/10/2023 2:44 PM CDT 1,000 mL 2000 mL/hr lactated ringer's bolus 1,000 mL 1,000 mL, Intravenous, Administer over 30 Minutes, IV BOLUS, 1 dose, On Wed11/10/23 at 1545 New Bag 11/10/2023 3:43 PM CDT 1,000 mL 2000 mL/hr linezolid (ZYVOX) IVPB 600 mg 600 mg, Indication (Select One): Infection - Confirmed, SITE (Select all that apply): Skin/Soft Tissue, Cultures Ordered? Yes, Intravenous, ONE TIME, 1 dose, On Wed11/10/23 at 1445 11/10/2023 3:52 PM CDT 600 mg 150 mL/hr magnesium sulfate 2 g IVPB 2 g, Intravenous, ONE TIME, Administer over 1 Hours, On Wed11/11/23 at 0640 New 11/11/2023 7:02 AM CDT 2 g 50 mL/hr metroNIDAZOLE (FLAGYL) IVPB 500 mg 500 mg, Indication (Select One): Infection - Confirmed, SITE (Select all that apply): Skin/Soft Tissue, Cultures Ordered? Yes, Intravenous, Q6H, 20 doses, First dose on Wed11/13/23 at 0900, Last dose on Wed11/18/23 at 0600 11/15/2023 5:34 AM CDT 500 mg 11/15/2023 12:12 AM CDT 500 mg 11/14/2023 6:47 PM CDT 500 mg metroNIDAZOLE (FLAGYL) tablet 500 mg 500 mg, Indication (Select One): Infection - Confirmed, SITE (Select all that apply): Skin/Soft Tissue, Other (Free text), SITE - Other (Free Text): Demar's gangeren, Cultures Ordered? Yes, Oral, Q6H, 12 doses, First dose on Wed11/15/23 at 1200, Last dose on Wed11/18/23 at 0600 Given 11/18/2023 6:22 AM CDT 500 mg Given 11/18/2023 12:28 AM CDT 500 mg Given 11/17/2023 6:37 PM CDT 500 mg NaCl 0.9% 1,000 mL bolus Intravenous, Administer over 30 Minutes, IV BOLUS, 1 dose, On Wed11/11/23 at 0000 11/11/2023 12:04 AM CDT 2000 mL/hr NaCl 0.9% 1,000 mL bolus Intravenous, Administer over 60 Minutes, IV BOLUS, 1 dose, On Wed11/13/23 at 0740 New 11/13/2023 9:50 AM CDT 1000 mL/hr NaCl 0.9% infusion at 75 mL/hr, Intravenous, CONTINUOUS, Starting on Wed11/10/23 at 1830, Until Wed11/12/23 at 0952 Restarted 11/11/2023 4:52 PM CDT 75 mL/hr Rate changed 11/11/2023 10:36 AM CDT 75 mL/hr New Bag 11/11/2023 7:43 AM CDT 125 mL/hr NaCl 0.9% infusion at 1,000 mL/hr, Intravenous, ONE TIME, 1 dose, On Wed11/15/23 at 1050 New Bag 11/15/2023 11:27 AM CDT 1000 mL/hr nicotine (NICOTROL) 14 mg/ 24hr daily 1 patch 1 patch, Transdermal, DAILY, First dose on Wed11/16/23 at 0900, Until Discontinued Patch applied 11/25/2023 8:47 AM CDT 1 patch Right Arm Patch applied 11/24/2023 7:51 AM CDT 1 patch Left Arm Patch applied 11/23/2023 9:38 AM CDT 1 patch Left Arm nicotine polacrilex (NICORELIEF) gum 2 mg 2 mg, Gum, Q1H PRN, Starting on Wed11/16/23 at 1803, Until Wed11/25/23 at 1502, Nicotine Craving (Use First) Given 11/24/2023 8:16 PM CDT 2 mg Given 11/24/2023 2:30 PM CDT 2 mg Given 11/24/2023 11:52 AM CDT 2 mg normal saline flush 0.9 % solution 10 mL 10 mL, IV Push, Q12H, First dose on Wed11/15/23 at 0800, Until Discontinued Given 11/25/2023 8:49 AM CDT 10 mL Given 11/24/2023 8:19 PM CDT 10 mL Given 11/24/2023 7:51 AM CDT 10 mL normal saline flush 0.9 % solution 10 mL 10 mL, IV Push, Q5 MIN PRN, Starting on Wed11/14/23 at 2323, Until Heather 11/25/23 at 1502, IV Line Flush Given 11/15/2023 6:27 AM CDT 10 mL Given 11/15/2023 5:34 AM CDT 10 mL Given 11/15/2023 1:27 AM CDT 10 mL OLANZapine (ZyPREXA ZYDIS) disintegrating tablet 5 mg 5 mg, Oral, ONE TIME PRN, 1 dose, Starting on Wed11/13/23 at 1807, Until Wed11/13/23 at 1833, Psychosis Given 11/13/2023 6:33 PM CDT 5 mg OLANZapine (ZyPREXA ZYDIS) disintegrating tablet 5 mg 5 mg, Oral, ONE TIME PRN, 1 dose, Starting on Wed11/13/23 at 1957, Until Wed11/13/23 at 2135, Agitation, Psychosis Given 11/13/2023 9:35 PM CDT 5 mg oxyCODONE (ROXICODONE) tablet 5-10 mg 5-10 mg, Oral, Q6H PRN, Starting on Wed11/10/23 at 1940, Until Wed11/11/23 at 1027, Moderate Pain (Use First) Given 11/11/2023 5:18 AM CDT 10 mg Given 11/10/2023 7:42 PM CDT 10 mg oxyCODONE (ROXICODONE) tablet 5-10 mg 5-10 mg, Oral, Q4H PRN, Starting on Wed11/11/23 at 1026, Until Wed11/25/23 at 1502, Moderate Pain (Use First) Given 11/25/2023 9:52 AM CDT 5 mg Given 11/24/2023 8:25 PM CDT 5 mg Given 11/23/2023 2:24 PM CDT 5 mg paliperidone palmitate ER (INVEGA SUSTENNA) injection 156 mg 156 mg, Intramuscular, ONE TIME, 1 dose, On Wed11/12/23 at 1600 Given 11/12/2023 5:24 PM CDT 156 mg Left Deltoid piperacillin-tazobactam (ZOSYN) 4.5 g in NaCl 0.9% IVPB 4.5 g, Indication (Select One): Infection - Confirmed, SITE (Select all that apply): Skin/Soft Tissue, Cultures Ordered? Yes, Intravenous, Q6H, First dose on Wed11/10/23 at 1830, Until Discontinued New Bag 11/13/2023 8:24 AM CDT 4.5 g 240 mL/hr New Bag 11/13/2023 2:23 AM CDT 4.5 g 240 mL/hr New Bag 11/12/2023 8:19 PM CDT 4.5 g 240 mL/hr polyethylene glycol 3350 (MIRALAX;GLYCOLAX) packet 17 g 17 g, Oral, DAILY, First dose on Wed11/11/23 at 0800, Until Discontinued Given 11/22/2023 8:20 AM CDT 17 g Given 11/20/2023 9:36 AM CDT 17 g Given 11/19/2023 8:53 AM CDT 17 g potassium chloride IVPB 10 mEq 10 mEq, Intravenous, Q1H, Administer over 60 Minutes, First dose on Wed11/11/23 at 0750, Last dose on Wed11/11/23 at 0850 New Bag 11/11/2023 10:18 AM CDT 10 mE q New Bag 11/11/2023 9:16 AM CDT 10 mEq prazosin (MINIPRESS) capsule 1 mg 1 mg, Oral, BEDTIME, First dose on Wed11/12/23 at 1999, Until Discontinued Given 11/24/2023 8:15 PM CDT 1 mg Given 11/23/2023 8:30 PM CDT 1 mg Given 11/22/2023 8:35 PM CDT 1 mg rosuvastatin (CRESTOR) tablet 10 mg 10 mg, Oral, BEDTIME, First dose on Wed11/12/23 at 1999, Until Discontinued Given 11/24/2023 8:15 PM CDT 10 mg Given 11/23/2023 8:30 PM CDT 10 mg Given 11/22/2023 8:35 PM CDT 10 mg sennosides (SENOKOT) tablet 17.2 mg 17.2 mg, Oral, BID, First dose (after last modification) on Wed11/11/23 at 1999, Until Discontinued Given 11/25/2023 8:47 AM CDT 17.2 mg Given 11/23/2023 8:29 PM CDT 17.2 mg Given 11/22/2023 8:20 AM CDT 17.2 mg sennosides (SENOKOT) tablet 8.6 mg 8.6 mg, Oral, BID, First dose on Wed11/10/23 at 2345, Until Discontinued Given 11/11/2023 8:42 AM CDT 8.6 mg traZODone (DESYREL) tablet 50 mg 50 mg, Oral, BEDTIME, First dose on Wed11/12/23 at 2000, Until Discontinued Given 11/24/2023 8:15 PM CDT 50 mg Given 11/23/2023 8:30 PM CDT 50 mg Given 11/22/2023 8:35 PM CDT 50 mg vancomycin (VANCOCIN) 2,750 mg in NaCl 0.9% IVPB 2,750 mg (rounded from 2,810 mg = 20 mg/kg ? 140.5 kg), Indication (Select One): Infection - Confirmed, SITE (Select all that apply): Skin/Soft Tissue, Cultures Ordered? Yes, Dose By? Phamacist to Dose, Intravenous, Q12H, First dose on Wed11/11/23 at 0155, Until Discontinued New Bag 11/12/2023 1:40 PM CDT 2,750 mg 183.3 mL/hr New Bag 11/12/2023 2:25 AM CDT 2,750 mg 183.3 mL/hr Bolus 11/11/2023 2:47 PM CDT 2,750 mg documented in this encounter Active and Recently Administered Medications Times are shown in CDT. Scheduled Medication Order 11/23/2023 11/24/2023 11/25/2023 acetaminophen (TYLENOL) tablet 975 mg 975 mg, Oral, TID, First dose (after last modification) on Wed11/11/23 at 1030, Until Discontinued 09 (Given - Provider: John Taylor RN)142 (Given - Provider: Demetra Brito RN)2029 (Given - Provider: Irene Min RN) 075 (Given - Provider: Demetra Brito RN)142 (Given - Provider: Demetra Brito RN)2015 (Given - Provider: Sheila Dias RN) 0847 (Given - Provider: Kate Harmon RN) amLODIPine (NORVASC) tablet 10 mg 10 mg, Oral, DAILY, First dose (after last modification) on Wed11/17/23 at 2110, Until Discontinued 2028 (Given - Provider: Irene Min, SABINE) 2015 (Given - Provider: Sheila Dias, SABINE) cyclobenzaprine (FLEXERIL) tablet 10 mg 10 mg, Oral, TID, First dose on Wed11/11/23 at 1200, Until Discontinued 0904 (Given - Provider: John Taylor RN)1424 (Given - Provider: Demetra Brito RN)2030 (Given - Provider: Irene Min, SABINE) 0751 (Given - Provider: Demetra Brito RN)1430 (Given - Provider: Demetra Brito RN)2016 (Given - Provider: Sheila Dias RN) 0847 (Given - Provider: Kate Harmon RN) DC MED REC REVIEW BY PHARMACY(Linked Group 1) Discharge Date: 11/24/2023, Discharge Location: Subacute Rehab, Anticipated Discharge Time: After 2 pm, Discharge Medication Orders: DC Med Orders Final, Does not apply, PROTOCOL, Starting on Wed11/24/23 at 1319, Until Heather 11/25/23 at 1502 escitalopram (LEXAPRO) tablet 20 mg 20 mg, Oral, BEDTIME, First dose (after last modification) on 11/13/23 at 2000, Until Discontinued 2028 (Given - Provider: Irene Min, SABINE) 2015 (Given - Provider: Sheila Dias RN) heparin 70521 UNITS/mL injection 7,500 UNITS 7,500 UNITS, Subcutaneous, Q 8H, First dose on Wed11/17/23 at 1505, Until Discontinued 0553 (Given - Provider: Mabel Mathews RN)1424 (Given - Provider: Demetra Brito RN)2304 (Given - Provider: Irene Min RN) 0603 (Given - Provider: Deja Vasquez RN)1429 (Given - Provider: Demetra Brito RN)2224 (Given - Provider: Sheila Dias RN) 0646 (Given - Provider: Sheila Dias RN) insulin ASPART (NovoLOG) FlexPen Insulin Order Mode: [...] provider, Subcutaneous, TID AC, First dose on Wed11/12/23 at 1150, Until Discontinued 0833 (Dual Sign-Off - Provider: Demetra Brito RN)0904 (Given - Provider: John Taylor RN)1145 (Dual Sign-Off - Provider: John Taylor RN)1149 (Given - Provider: John Taylor RN)1636 (Dual Sign-Off - Provider: Demetra Brito RN)1639 (Given - Provider: Demetra Brito RN) 0746 (Dual Sign-Off - Provider: Demetra Brito RN)0749 (Given - Provider: Demetra Brito RN)1149 (Dual Sign-Off - Provider: Demetra Brito RN)1152 (Given - Provider: Demetra Brito RN)1737 (Dual Sign-Off - Provider: Demetra Brito RN)1740 (Given - Provider: Demetra Brito RN) 0841 (Dual Sign-Off - Provider: Kate Harmon RN)0849 (Given - Provider: Kate Harmon RN)1130 (Due) insulin ASPART (NovoLOG) FlexPen Glucose 201-250 (Units): 0, Glucose 251-300 (Units): 0, Glucose 301-350 (Units): 0, Glucose 351-400 (Units): 6, Glucose 401-450 (Units): 8, Glucose 451-500 (Units): 10, Glucose GREATER THAN 501 (Units): 12, Glucose GREATER THAN 501 instructions: Call provider, Subcutaneous, BEDTIME MAY REPEAT ONCE, First dose on Wed11/12/23 at 2100, Until Discontinued 2046 (Not Given (removes Due time) - Provider: Irene Min RN - Reason: Held per order) 2100 (Not Given (removes Due time) - Provider: Sheila Dias RN - Reason: Held per order) insulin GLARGINE (LANTUS) 30 UNITS injection vial 30 UNITS, Subcutaneous, Q24H, First dose (after last modification) on Wed11/18/23 at 1230, Until Discontinued 1247 (Dual Sign-Off - Provider: Demetra Brito RN)1250 (Given - Provider: John Taylor RN) 1149 (Dual Sign-Off - Provider: Demetra Brito RN)1152 (Given - Provider: Demetra Brito RN) nicotine (NICOTROL) 14 mg/ 24hr daily 1 patch 1 patch, Transdermal, DAILY, First dose on Wed11/16/23 at 0900, Until Discontinued 0938 (Patch applied - Provider: Demetra Brito RN) 0750 (Patch removed - Provider: Demetra Brito RN)0751 (Patch applied - Provider: Demetra Brito RN) 0847 (Patch applied - Provider: Kate Harmon, SABINE)0849 (Patch removed - Provider: Kate Harmon RN)1202 (Due: Patch removed - Provider: GIANLUCA OWEN - Comment: Time automatically adjusted from order being discontinued) normal saline flush 0.9 % solution 10 mL 10 mL, IV Push, Q12H, First dose on Wed11/15/23 at 0800, Until Discontinued 0939 (Not Given (removes Due time) - Provider: Demetra Brito RN - Reason: Held per nurse)2029 (Given - Provider: Irene Min RN) 075 (Given - Provider: Demetra Brito RN)2018 (Given - Provider: Sheila Dias, SABIEN) 0849 (Given - Provider: Kate Harmon, SABINE) polyethylene glycol 3350 (MIRALAX;GLYCOLAX) packet 17 g 17 g, Oral, DAILY, First dose on Wed11/11/23 at 0800, Until Discontinued 0939 (Not Given (removes Due time) - Provider: Demetra Brito RN - Reason: Patient refused) 075 (Not Given (removes Due time) - Provider: Demetra Brito RN - Reason: Patient refused) 0850 (Not Given (removes Due time) - Provider: Kate Harmon RN - Reason: Patient refused) prazosin (MINIPRESS) capsule 1 mg 1 mg, Oral, BEDTIME, First dose on Wed11/12/23 at 2000, Until Discontinued 2029 (Given - Provider: Irene Min RN) 2014 (Given - Provider: Sheila Dias, SABINE) rosuvastatin (CRESTOR) tablet 10 mg 10 mg, Oral, BEDTIME, First dose on Wed11/12/23 at 1999, Until Discontinued 2029 (Given - Provider: Irene Min RN) 2014 (Given - Provider: Sheila Dias RN) sennosides (SENOKOT) tablet 17.2 mg 17.2 mg, Oral, BID, First dose (after last modification) on Wed11/11/23 at 1999, Until Discontinued 938 (Not Given (removes Due time) - Provider: Demetra Brito RN - Reason: Patient not in room)2028 (Given - Provider: Irene Min RN) 075 (Not Given (removes Due time) - Provider: Demetra Brito RN - Reason: Patient refused)2043 (Not Given (removes Due time) - Provider: Sheila Dias RN - Reason: Patient refused) 0847 (Given - Provider: Kate Harmon RN) traZODone (DESYREL) tablet 50 mg 50 mg, Oral, BEDTIME, First dose on Wed11/12/23 at 1999, Until Discontinued 2029 (Given - Provider: Irene Min RN) 2014 (Given - Provider: Sheila Dias, SABINE) PRN Medication Order 11/23/2023 11/24/2023 11/25/2023 bisacodyl (DULCOLAX) suppository 10 mg 10 mg, Rectal, DAILY PRN, Starting on Wed11/11/23 at 1026, Until Wed11/25/23 at 1502, Constipation (Use Second) nicotine polacrilex (NICORELIEF) gum 2 mg 2 mg, Gum, Q1H PRN, Starting on Wed11/16/23 at 1803, Until Wed11/25/23 at 1502, Nicotine Craving (Use First) 0909 (Given - Provider: John Taylor RN)1002 (Given - Provider: Demetra Brito RN)1503 (Given - Provider: John Taylor RN)1640 (Given - Provider: Demetra Brito RN)2029 (Given - Provider: Irene Min RN) 0752 (Given - Provider: Demetra Brito RN)0900 (Given - Provider: Demetra Brito RN)1152 (Given - Provider: Demetra Brito RN)1430 (Given - Provider: Demetra Brito RN)2015 (Given - Provider: Sheila Dias RN) normal saline flush 0.9 % solution 10 mL 10 mL, IV Push, Q5 MIN PRN, Starting on Wed11/14/23 at 2323, Until Heather 11/25/23 at 1502, IV Line Flush ondansetron (ZOFRAN) tablet 4 mg 4 mg, Oral, Q6H PRN, Starting on Wed11/10/23 at 2344, Until Heather 11/25/23 at 1502, Nausea/Vomiting (Use First), Use if patient able to tolerate oral dose oxyCODONE (ROXICODONE) tablet 5-10 mg 5-10 mg, Oral, Q4H PRN, Starting on Heather 11/11/23 at 1026, Until Heather 11/25/23 at 1502, Moderate Pain (Use First) 0908 (Given - Provider: John Taylor RN)1424 (Given - Provider: Demetra Brito RN) 2024 (Given - Provider: Sheila Dias, SABINE) 0952 (Given - Provider: Kate Harmon RN) Linked Groups Order Group 1: DC MED REC REVIEW BY PHARMACYJump to med Discharge Date: 11/24/2023, Discharge Location: Subacute Rehab, Anticipated Discharge Time: After 2 pm, Discharge Medication Orders: DC Med Orders Final, Does not apply, PROTOCOL, Starting on Wed11/24/23 at 1319, Until Heather 11/25/23 at 1502 And Discharge Med Rec Final Review by [...] the patient to inform them., Discharge Date: 11/24/2023, Discharge Location: Subacute Rehab, Anticipated Discharge Time: After 2 pm documented in this encounter Additional Health Concerns Infection Onset Date Last Indicated Resolved Time 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
--- OUTSIDE RECORDS SUMMARY | 2024-02-07 08:52 | XMS_ITS | Encounter Summary ---
Author Organization [facility] Address [address] [place] [address] Phone Care Team Providers Care Gear Hobber Name Role Phone Unavailable Primary Care Provider Unavailabl e Encounter Details Date Type Department Care Team (Late st Contact Info) Description 11/18/2023 [facility] [phone] Eusebio Leon, DO [address] [id number] Social History Tobacco Use Types Packs/Day Years [...]
--- OUTSIDE RECORDS SUMMARY | 2024-02-07 08:52 | XMS_ITS | Encounter Summary ---
Author Organization [facility] Address [address] [place] [id number] Phone Care Team Providers Care Shipping And Receiving Clerk Name Role Phone Unavailable Primary Care Provider [...] Date/Time Associated Diagnosis Comments TELEMETRY STRIPS 11/18/2023 9:35 PM CDT documented in this encounter Results * TELEMETRY STRIPS (11/18/2023 9:35 PM CDT) Narrative 11/18/2023 9:35 PM CDT Ordered by an unspecified provider. 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
--- OUTSIDE RECORDS SUMMARY | 2024-02-07 08:52 | XMS_ITS | Encounter Summary ---
Author Organization [facility] Address [address] [facility] [place] [address] Phone Care Team Providers Care Investor Relations Director Name Role Phone Unavailable Primary Care Provider Unavailabl e Reason for Visit * Auth/Cert (Routine) Specialty Diagnoses / Procedures Referred By Katherine t Referred To Contact SURGERY Diagnoses 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HHS) Hyperglycemia Zac Jackson MD [address] [facility] [address] [place] [address] [address] [phone] [place] [address] Referral ID Status Reason Start Date Expiration Date Visits Re quested Visits Authorized [id number] 1 1 Encounter Details Date Type Department Care Team (Late st Contact Info) Description 11/17/2023 9:01 AM CDT Anesthesia Event OR P4 [address] [place] [address] Brady Lai MD [address] [facility] [address] [place], [place] [phone] [place] [id number] Anesthesia Record Procedure Summary Procedure Name Responsible Anesthesiologist Anesthesia Start Time Anesthesia Stop Time AMPUTATION, TOE (Left: Foot) Brady Lai MD 11/17/23 0901 11/17/23 0959 Events Date Time Event Comment 11/17/2023 0852 Pre-op End 0901 An Start 0901 An Start Data 0901 IOPAE The intraoperat dasha pre-anesthetic evaluation was completed with no changes noted from the pre-operative anesthesia evaluation. 0915 Quick Note Glucose 169 mg/ dL. 0954 an stop data 0959 An Stop Meds Name Total lidocaine 2% injection 50 mg propofol (DIPRIVAN) inFUSION 653.33 mg cefTRIAXone (ROCEPHIN) 1 g in NaCl 0.9% 100 mL IVPB 2,000 mg hydrALAZINE (APRESOLINE) 20 mg/mL inject ion 20 mg lactated ringers infusion 400 mL * Agents No agents on file. * Blood No blood administrations on file. Lines, Drains, and Airways Type Details Placement Removal Wound 11/10/23; 1707; Incision; Perineum; I+D site 11/11/23 11/10/23 1707 by Jeannie Wiley RN Wound 11/10/23; 1839; Y; Foot; Left; left toe 11/10/23 1839 by Nahid Powell RN Peripheral IV 11/13/23; 0929; Yes; 20 gauge, 1 3/4 in length; Anterior, Left; Forearm; 1; Placed in Unit; 11/25/23; 1502; 0; 0 11/13/23 0929 by Doug Boggs RN 11/25/23 1502 by GIANLUCA OWEN documented in this encounter Social History Tobacco Use Types Packs/Day Years Used Date Smoking Tobacco: Never Assessed Sex and Gender Information Value Date Recorded Sex Assigned at Not on file Gender Identity Not on file Sexual Orientation Not on file documented as of this encounter OR Notes * Anesthesia Postprocedure Evaluation - Brady Lai MD - 11/17/2023 10:55 AM CDT Anesthesia Post Eval Patient: Matt Thibodeaux Daryamaryzena Procedure(s) Performed: AMPUTATION, TOE (Left: Foot) I've examined the patient and determined that [facility] is [facility]est[facility] type: MAC () Patient location: PACU Patient status: Post-procedure vital signs reviewed and stable Level of Consciousness: Awake Post-op pain: Adequate Respiratory: Stable Cardiovascular: Stable PONV status: none Fluid status: Acceptable Anesthetic Complications: No immediate anesthesia complications Last Vitals: Vitals Value Taken Time BP 157/84 11/17/23 1050 Temp 36.3 ??C (97.3 ??F) 11/17/23 1000 Pulse 88 11/17/23 1053 Resp 19 11/17/23 1053 SpO2 93 % 11/17/23 1053 Vitals shown include unfiled device data. * Anesthesia Preprocedure Evaluation - Brady Lai MD - 11/17/2023 7:04 AM CDT Anesthesia Pre-Evaluation Summary Statement: This is a 43 y.o. year old patient scheduled for AMPUTATION, TOE (Left: Foot). Anesthesia Evaluation Internal or external H&P reviewed, patient examined and changes and/or additions made as needed Anesthesia Considerations , pre-existing infection Pulmonary - negative ROS and normal exam Neurological (+) neuropathy Psychiatric (+) mental illness (schizophrenia) Cardiovascular - normal exam (+) hypertension Endo (+) diabetes mellitus () Musculoskeletal ROS comment: Necrotizing soft tissue infection LE s/p debridement. Osteomyelitis LE. HEENT - negative ROS GI (+) obesity Hematologic/Onc - negative ROS /Renal/Car Racer (+) chronic renal disease (acute and chronic) Airway Mallampati: III TM distance: >3 FB Neck ROM: full Dental (+) poor dentition OB Other Physical Exam Anesthesia Plan ASA 3 MAC (Received 4 units of novolog at ~ 6am. Will recheck glucose. If greater than 180 I can't give more novolog due to the dosing interval, and the case isn't long enough to warrant an infusion.) intravenous induction Maintenance: TIVA Post-op Care: routine analgesia Anesthetic plan and risks discussed with patient. Plan discussed with MAINFRAME DEVELOPER. Vitals: 11/17/23 0344 BP: (!) 171/80 Pulse: 90 Resp: 16 Temp: 36.6 ??C (97.9 ??F) SpO2: 96% documented in this encounter Miscellaneous Notes * Anesthesia Handoff Note - Dayana Rincon APRN, MAINFRAME DEVELOPER - 11/17/2023 9:58 AM CDT Anesthesia Post Handoff Patient: Matt Low Procedure(s) Performed: AMPUTATION, TOE (Left: Foot) Patient was stable and nail beds/oral mucosa pink at time of handoff. Patient location: PACU Transportation: Patient was not placed on High Flow Oxygen. Anesthesia Type: MAC Patient did not meet fast track criteria. Report to RN (Radha) The nurse's questions were answered. Last Vitals: Vitals: 11/17/23 0850 BP: (!) 189/93 Pulse: Resp: Temp: 36.6 ??C (97.9 ??F) SpO2: documented in this encounter Plan of Treatment Not on file documented as of this encounter Visit Diagnoses Not on filedocumented in this encounter Administered Medications Inactive Administered Medications - up to 3 most recent administrations Medication Order MAR Action Action Date Dose Rate Site cefTRIAXone (ROCEPHIN) 1 g in NaCl 0.9% 100 mL IVPB Intravenous, PERIOP CONTINUOUS, Starting on Wed11/17/23 at 0915, Until Wed11/17/23 at 0959 New Bag 11/17/2023 9:03 AM CDT 2,000 mg hydrALAZINE (APRESOLINE) 20 mg/mL injection IV Push, INTRA-OP PRN ONCE MAY REPEAT, Starting on Wed11/17/23 at 0916, Until Wed11/17/23 at 0959 Given 11/17/2023 9:16 AM CDT 20 mg lactated ringers infusion Intravenous, PERIOP CONTINUOUS, Starting on Wed11/17/23 at 0910, Until Wed11/17/23 at 0959 New Bag 11/17/2023 9:01 AM CDT lidocaine 2% injection Intravenous, INTRA-OP PRN ONCE MAY REPEAT, Starting on Wed11/17/23 at 0904, Until Wed11/17/23 at 0959 Given 11/17/2023 9:04 AM CDT 50 mg propofol 10 mg/mL Infusion PERIOP CONTINUOUS, Starting on Wed11/17/23 at 0910, Until Wed11/17/23 at 0959, Intravenous Infusing 11/17/2023 9:11 AM CDT 100 mcg/kg/min 84.3 mL/hr New Bag 11/17/2023 9:04 AM CDT 150 mcg/kg/min 126.45 mL /hr documented in this encounter
--- OUTSIDE RECORDS SUMMARY | 2024-02-07 08:54 | XMS_ITS | Encounter Summary ---
Author Organization [facility] Address [address] [place] [phone] Phone Care Team Providers Care Tank Maker Wood Name Role Phone Unavailable Primary Care Provider Unavailabl e Encounter Details Date Type Department Care Team (Late st Contact Info) Description 11/15/2023 Orders Only Unspecified Department [place] Unknown, [...] Priority Date/Time Associated Diagnosis Comments TELEMETRY STRIPS 11/15/2023 8:46 AM CDT documented in this encounter Results * TELEMETRY STRIPS (11/15/2023 8:46 AM CDT) Narrative 11/15/2023 8:46 AM CDT Ordered by an unspecified provider. 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
--- OUTSIDE RECORDS SUMMARY | 2024-02-07 08:54 | XMS_ITS | Encounter Summary ---
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 Name Role Phone Unavailable Primary Care Provider Unavailabl e Reason for Visit * Reason Comments Fever Penis/Scrotal Problem Toe Problem * Auth/Cert (Routine) Specialty Diagnoses / Procedures Referred By Katherine t Referred To Contact SURGERY Diagnoses 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HHS) Hyperglycemia Zac Churchill MD [address] [facility] [address] [place] [address] [address] [facility] [address] [place] [address] Referral ID Status Reason Start Date Expiration Date Visits Re quested Visits Authorized [id number] 1 1 Encounter Details Date Type Department Care Team (Late st Contact Info) Description 11/17/2023 8:34 AM CDT - 11/17/2023 9:46 AM CDT Surgery OR P4 [address] [place] [address] Che Palomo DPM [address] [facility] [address] [place], [place] [id number] AMPUTATION, TOE Social History Tobacco Use Types Packs/Day Years Used Date Smoking Tobacco: Never Assessed Sex and Gender Information Value Date Recorded Sex Assigned at Not on file Gender Identity Not on file Sexual Orientation Not on file documented as of this encounter Last Filed Vital Signs Vital Sign Reading Time Taken Comments Blood Pressure 189/93 11/17/2023 8:50 AM CDT Pulse 85 11/17/2023 8:00 AM CDT Temperature 36.6 ??C (97.9 ??F) 11/17/2023 8:50 AM CD T Respiratory Rate 16 11/17/2023 3:44 AM CDT Oxygen Saturation 90% 11/17/2023 8:00 AM CDT Inhaled Oxygen Concentration - - Weight 140.5 kg (309 lb 11.9 oz) 11/10/2023 2:33 PM CDT Height 180.3 cm (5' 10.98) 11/12/2023 2:06 PM C DT Body Mass Index 43.97 11/12/2023 2:06 PM CDT documented in this encounter Discharge Summaries * 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 APRN, POLICE PATROL LIEUTENANT - 11/25/2023 7:37 AM CDT GENERAL SURGERY DISCHARGE SUMMARY - PIGGYBACK CLERK Stephanie Low : 1980 Sex: male Date of Admission: 11/10/2023 Date of Discharge: 11/25/2023 Disposition: Long Term Facility Primary care physician: No primary care [...] will follow up with 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 APRN, POLICE PATROL LIEUTENANT Malnutrition Weight: (!) 142.9 kg (315 lb 1.6 oz) Wt Change from Previous: 0 Kg Wt Change from Admit: 2.43 Kg % Wt Change from Adm: 1.73 % [place] Body Wt (IBW) Male (kg): 75.26 kg [...] oriented x 3. No gross focal deficits Automotive Shop Foreman Needed: no PLANNED DISCHARGE ORDERS: Suture/Sharon: None [...] AND FOLLOWUP: General: Surgery: 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 APRN, PATRICIA on 12/24/23 Primary Care Physician: Follow up [...] of plan of care? Yes Okay for Long Term Facility standing orders? Question Response Notes OK for Long Term Facility house standing orders? Yes Other Nursing [...] or contraindicated. Resume previous standing orders per senior care policy Order Notes Resume previous standing orders per senior care policy Patient is on a Consistent Carbohydrate [...] 4:30PM, M-F): Call the Surgery Clinic at [phone] After hours or on Holidays: Call the [facility] hardboard press operator . Ask the hardboard press operator to page the general surgery resident professional services consultant. IF: -- you feel you are getting [...] -- Read all labels for prescription and Swuw-etl-bxgbrmn medicines. Ask the pharmacist if your prescription [...] Your Medications These medications were sent to [facility] [place] [id number] Hours: 30/11 insulin LISPRO 100 UNIT/ML Kwikpen [...] condition and treatment plan. 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 APRN, CNP 11/25/2023 07:37 [facility] Department of Surgery Pager: via telemediq I have spent 45 minutes with this patient today in which greater than 50% of this time was spent incounseling/coordination of care regarding in patient care, review of imaging/labs, chart review andconsultant recommendations. Dictation Disclaimer: Some notes are completed with voice-recognition dictation software. Errors are generally corrected in real time. Please contact me via ustyme staff message if you note any errors [...] - Resources for patient (select all that apply):[id number]} documented in this encounter Medications at Time [...] the discharge summary paperwork with medication orders. Photoengraving Etcher Apprentice opened admission encounter and re-faxed discharge paperwork to the provided fax # of [phone]. Tried a second fax # after this wasn't received, which also wasn't received. Third attempt made viaencrypter email. Confirmed received paperwork via encrypted email. Pepe Hernandez RN, 11/25/2023 9:33 PM ED Clinical Coordinator Office: [phone] TelMedIQ: ED Clinical Coordinator * Kate Harmon [...] (Arrive by 12:50 PM) with Dr Palomo ([facility]) since he is discharging to [place].Follows with [facility] when closer to home otherwise. Please page professional services consultant resident with questions. Interval History Patient was [...] Farida Rosenthal DPM, 11/25/2023 10:18 AM * Caridad Dorsey - 11/24/2023 2:37 PM CDT Preadmission Screening Submitter InformationPerson Being ReferredMedical InformationADL'Montefi[facility]le HospitalSubmitResults Results Thank you for submitting a [...] help, contact the Senior LinkAge Line at [phone] or click to contact us. Print this page You have successfully submitted the preadmission screening (PAS) to the Senior LinkAge Line on: Created On 11/24/2023 2:25 PM Your confirmation number is: [id number] Results Level of Care: Based on the information you provided, it appears this person meets level of care for purposes of MA payment. OBRA: It appears this person does not need an OBRA Level II assessment. Submitter Information Form Type PAS Submitter First and Last Name Caridad Dorsey Direct Agency [facility] [address] [place] [address] [place] [address] Is your Agency outside [place]? Person Being Admitted to Nursing Facility Legal first name Matt Last name Stephanie Date of 1980 Age 43 Gender Male Marital Status N= Never Race A = B = Black or N = or Alaskan [place] P = [place] or W = White U = Unable to Determine Ethnicity Not / Currently living with: 01 Living Alone Planned living with 04 Living in Congregate Setting Housing Type Home or apartment, including assisted living (09) Mailing Address [address] [place] [address] Zip [facility] [address] [facility] Medical Information Reason for nursing facility admission: [...] facility the person will admit to?Yes Provider [facility] Nursing Facility Nursing Facility Service Type Skilled Nursing [address] If your provider is not listed check [...] 60) follow-up. Did not ask * 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, COMMODITY SUPERVISOR, POLICE PATROL LIEUTENANT - 11/24/2023 1:43 PM CDT SURGERY PROGRESS NOTE--PIGGYBACK CLERK Stephanie Low : 1980 Sex: male SIGNIFICANT [...] for discharge. Planning on discharge today to [facility] pending insurance approval. PLAN: Neuro/Pain Control: Multimodal [...] Trend WBCs and fever Skin/Wounds: Perineal debridement jhee-ndb-xu-dry dressings with Vashe; Left hallux amputation -Betadine with 4 x 4 DVT prophylaxis: Lovenox and SCDs Weight Bearing: Heel touch WB in surgical shoe. On the LLW Activity: Ad celia PT/OT: Appreciate Recs Disposition: [facility] on 11/24/23 pending insurance authorization 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 APRN, PATRICIA, 11/24/2023 1:43 PM [facility] Department of Surgery Pager: via telemediq I have spent 30 minutes with this patient today in which greater than 50% of this time was spent incounseling/coordination of care regarding in patient care, review of imaging/labs, chart review andconsultant recommendations. Dictation Disclaimer: Some notes are completed with voice-recognition dictation software. Errors are generally corrected in real time. Please contact me via ustyme staff message if you note any errors [...] time () of patient departure: 11/25/2023@1030 Destination: [facility] Type of ride: [employer] #conformation [phone] Transportation vendor of ride (choose one below):* [facility] [phone] If this ride needs to be [...] Clinical Coordinators will be informed via a TelBrndstrq page. PCS form was completed in Progress [...] sex Attending provider: Zac Churchill MD Insurance: [facility] Secondary insurance: [employer] Height: Height: 180.3 cm (5' [...] on each: Self care/Home mgmt/ADL: 18 minutes Chayo Townsend OTR/L Pager: [facility] OT Department Problem: Loss of Columbia With ADLs, Risk for Goal: Will complete lower body dressing Description: Patient will complete lower body dressing with Modified Columbia (6). Outcome: In progress Goal: Will toilet self Description: Patient will toilet self with Modified Columbia (6). Outcome: In progress * Lior Azul [...] Selected Services Address Phone Fax Patient Preferred [facility] Selected Long Term [address] [facility] [phone] -- Internal Comment last updated by Lior Azul 11/24/2023 0805 Pending prior auth. Lior Azul, 11/24/2023 8:05 AM Received VM saying they would accept . LVM saying we would accept bed.. Caridad Dorsey, 11/24/2023 7:50 AM Admissions is currently reviewing .Caridad Dorsey, 11/23/2023 9:31 AM No bd available until next week. Caridad Dorsey, 11/18/2023 8:34 AM [facility], [facility] ([facility]) Accepted N/A [address] [facility] [address] -- Internal Comment last updated by Lior Azul 11/24/2023 0840 They can offer us a bed here but we already found one in [place]. Lior Azul, 11/24/2023 8:40 AM [facility] Pending - Request Sent N/A [address] [facility] [address] [phone] -- Internal Comment last updated by Caridad Dorsey 11/23/2023 0937 LVM for admissions .Caridad Dorsey, 11/23/2023 9:37 AM [facility] Declined Current smoking, Bariatric N/A [address] [facility] [address] [phone] -- [facility], [facility] Declined Distance N/A [address] [address] [phone] -- Internal Comment last updated by Lior Azul 11/22/2023 1213 This is too far from where patient lives. Lior Azul, 11/22/2023 12:18 PM Sent e mail to Allie .Caridad Dorsey, 11/22/2023 8:10 AM LVM for admissions .Caridad Dorsey, 11/19/2023 7:44 AM Sent email to Missy.Caridad Dorsey, 11/17/2023 2:24 PM [facility] Declined No Contract with Patient's Insurance Carrier N/A [address] [place] [address] [phone] -- [facility] Declined Current smoking, Acuity too high N/A [address] [facility] [address] [phone] -- Internal Comment last updated by Caridad Dorsey 11/18/2023 0831 LVM for admissions.Caridad Dorsey, 11/18/2023 8:31 AM [facility], [facility] Declined Bed not available N/A [address] [facility] [address] [phone] -- Internal Comment last updated by Lior Azul 11/23/2023 141 Looking for a bed in the [facility] .Caridad Dorsey, 11/23/2023 9:35 AM LVM for admissions.Caridad Dorsey, 11/19/2023 8:17 AM LVM for admissions.Caridad Dorsey, 11/18/2023 8:37 AM [facility] Declined Bed not available N/A [address] [facility] [address] [phone] -- [facility], [facility] Declined Bed not available N/A [address] [facility] [address] [phone] -- [facility], [facility] Declined Bed not available N/A [address] [facility] [address] [phone] -- Home Medical Care No active coordination exists for this encounter. * 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, JAROD, PATRICIA - 11/23/2023 3:06 PM CDT SURGERY PROGRESS NOTE--DELPHINE Low : [...] NA 137 11/23/2023 0831 K 5.1 11/23/2023 08 CHLORIDE 103 11/23/2023 0831 CO2 24 11/23/2023830 GLU 192 (H) 11/23/2023830 UN 20 11/23/2023 08 CR 1.96 (H) 11/23/2023 08 CA 8.5 (L) 11/23/2023830 CBC Lab Results Component Value Date/Time WBC 13.36 (H) 11/23/2023830 RBC 3.57 (L) 11/23/2023830 HGB 10.0 (L) 11/23/2023830 HCT 31.5 (L) 11/23/2023830 PLT 492 (H) 11/23/2023830 ASSESSMENT: Matt Low is a 43 y.o. [...] Trend WBCs and fever Skin/Wounds: Perineal debridement nkkk-lek-fa-dry dressings with Vashe; Left hallux amputation -Betadine with 4 x 4 DVT prophylaxis: Lovenox and SCDs Weight Bearing: Heel touch WB in surgical shoe. On the LLW Activity: Ad celia PT/OT: Appreciate Recs Disposition: Postacute placement recommended-care management and social work looking for a TCU. 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 APRN, PATRICIA, 11/23/2023 3:06 PM [facility] Department of Surgery Pager: via telemediq I have spent 30 minutes with this patient today in which greater than 50% of this time was spent incounseling/coordination of care regarding in patient care, review of imaging/labs, chart review andconsultant recommendations. Dictation Disclaimer: Some notes are completed with voice-recognition dictation software. Errors are generally corrected in real time. Please contact me via ustyme staff message if you note any errors [...] Selected Services Address Phone Fax Patient Preferred [facility] Pending - Request Sent N/A [address] [facility] [phone] -- Internal Comment last updated by Caridad Dorsey 11/23/2023 0931 Admissions is currently reviewing .Caridad Dorsey, 11/23/2023 9:31 AM No bd available until next week. Caridad Dorsey, 11/18/2023 8:34 AM [facility], [facility] Pending - Request Sent N/A [address] [facility] [address] [phone] -- Internal Comment last updated by Lior Azul 11/23/2023 1415 Looking for a bed in the [facility] .Caridad Dorsey, 11/23/2023 9:35 AM LVM for admissions.Caridad Dorsey, 11/19/2023 8:17 AM LVM for admissions.Caridad Dorsey, 11/18/2023 8:37 AM [facility] Pending - Request Sent N/A [address] [facility] [address] [phone] -- Internal Comment last updated by Caridad Dorsey 11/23/2023 0937 LVM for admissions .Caridad Dorsey, 11/23/2023 9:37 AM [facility] Declined Current smoking, Bariatric N/A [address] [facility] [address] [phone] -- [facility], [facility] Declined Distance N/A [address] [address] [phone] -- Internal Comment last updated by Lior Azul 11/22/2023 1218 This is too far from where patient lives. Lior Azul, 11/22/2023 12:18 PM Sent e mail to Allie .Caridad Dorsey, 11/22/2023 8:10 AM LVM for admissions .Caridad Dorsey, 11/19/2023 7:44 AM Sent email to Missy.Caridad Dorsey, 11/17/2023 2:24 PM [facility] Declined No Contract with Patient's Insurance Carrier N/A [address] [place] [address] [phone] -- [facility] Declined Current smoking, Acuity too high N/A [address] [facility] [address] [phone] -- Internal Comment last updated by Caridad Dorsey 11/18/2023 0831 LVM for admissions.Caridad Dorsey, 11/18/2023 8:31 AM [facility] Declined Bed not available N/A [address] [facility] [address] [phone] -- [facility] Declined Bed not available N/A [address] [facility] [phone] -- The [facility], [facility] Declined Bed not available N/A [address] [facility] [address] [phone] -- Home Medical Care No active coordination exists for this encounter. * Caridad Dorsey - 11/23/2023 9:42 AM CDT Continued Care and Services - Admitted Since 11/10/2023 Destination Service Provider Request Status Selected Services Address Phone Fax Patient Preferred [facility] Pending - Request Sent N/A [address] [facility] [phone] -- Internal Comment last updated by Caridad Dorsey 11/23/2023 0931 Admissions is currently reviewing .Caridad Dorsey, 11/23/2023 9:31 AM No bd available until next week. Caridad Dorsey, 11/18/2023 8:34 AM [facility], A [facility] Pending - Request Sent N/A [address] [facility] [address] [phone] -- Internal Comment last updated by Caridad Dorsey 11/23/2023 0935 Looking for a bed in the [facility] .Caridad Dorsey, 11/23/2023 9:35 AM LVM for admissions.Caridad Dorsey, 11/19/2023 8:17 AM LVM for admissions.Caridad Dorsey, 11/18/2023 8:[address] [facility], [facility] Pending - Request Sent N/A [address] [facility] [phone] -- [facility] Pending - Request Sent N/A [address] [facility] [address] [phone] -- Internal Comment last updated by Caridad Dorsey 11/23/2023 0937 LVM for admissions .Caridad Dorsey, 11/23/2023 9:37 AM [facility] Declined Current smoking, Bariatric N/A [address] [facility] [address] [phone] -- [facility], [facility] Declined Distance N/A [address] [address] [phone] -- Internal Comment last updated by Lior Azul 11/22/2023 1218 This is too far from where patient lives. Lior Azul, 11/22/2023 12:18 PM Sent e mail to Allie .Caridad Dorsey, 11/22/2023 8:10 AM LVM for admissions .Caridad Dorsey, 11/19/2023 7:44 AM Sent email to Missy.Caridad Dorsey, 11/17/2023 2:24 PM [facility] Declined No Contract with Patient's Insurance Carrier N/A [address] [place] [address] [phone] -- [facility] Declined Current smoking, Acuity too high N/A [address] [facility] [address] [phone] -- Internal Comment last updated by Caridad Dorsey 11/18/2023 0831 LVM for admissions.Caridad Dorsey, 11/18/2023 8:31 AM [facility] Declined Bed not available N/A [address] [facility] [address] [phone] -- The [facility], [facility] Declined Bed not available N/A [address] [facility] [address] [phone] -- Home Medical Care No active coordination exists for this encounter. * Chayo Townsend OTR/L - 11/22/2023 2:56 PM CDT Occupational Therapy [...] hospital stay Precautions/Restrictions: Activity Level: Up Ad Celia (11/13/23 [...] mgmt/ADL: 13 minutes Chayo Townsend OTR/L Pager: [facility] OT Department Problem: Loss of Columbia With ADLs, Risk for Goal: Will complete lower body dressing Description: Patient will complete lower body dressing with Modified Columbia (6). Outcome: In progress Goal: Will toilet self Description: Patient will toilet self with Modified Columbia (6). Outcome: In progress * KassyArdenABHINAV - 11/22/2023 2:05 PM CDT Physical Therapy [...] gait with or without AD, static/dynamic balance. WARP KNITTING MACHINE OPERATOR Appropriate: Yes Arden Elena PTA 11/22/2023 Pager: Tel[facility] PT Dept Problem: Decreased Transfer Skills Goal: Patient will transfer sit to/from stand Description: Patient will transfer sit to/from stand while Heel touch WB on L LE in post-op shoe with (6) Modified Columbia in order to mobilize in home by [...] 12:09 PM CDTSummary: DC Planning DC Planning [facility] SABINE Hartman - O: [phone] Fdc RN is calling her asking her when he can return there. Please check in with Matt and Hazel CC spoke with Minnie. It seems patient [...] agrees with sending referrals to SNFs around [place]. He wants CC to let sister know [...] Intake/Output Summary (Last 24 hours) at 11/22/2023 0913 Last data filed at 11/21/2023 1600 Gross [...] Component Value Date/Time WBC 11.48 (H) 11/21/2023 045 RBC 3.21 (L) 11/21/2023 045 HGB 9.0 (L) 11/21/2023 045 HCT 28.7 (L) 11/21/2023 045 PLT 510 (H) 11/21/2023 045 MCV 89.4 11/21/2023451 MCH 28.0 11/21/2023 045 MCHC 31.4 11/21/2023 045 RDW 14.6 (H) 11/21/2023451 MPV 9.1 11/21/2023 0452 NEUTNO 6.51 (H) [...] bedtime. -Continue Amlodipine 10mg Daily - Resume WARP KNITTING MACHINE OPERATOR losartan 50mg PO Daily when Cr is closer to baseline (1.0) Acute Kidney Injury Monitor urine output and BMP closely. 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 Would give [...] the patient on the date of the blurb writer's note. I discussed with the blurb writer of the note and agree with their findings and plan documented in the blurb writer's note from above. Any revisions by me are documented. Zac Churchill MD, 11/23/2023 8:18 AM * Nicola Vasquez MD - 11/21/2023 12:31 PM CDT SURGERY PROGRESS NOTE--PGY1 Matt Low : 1980 Sex: male SIGNIFICANT EVENTS IN THE PAST 24 HRS: SUMAYA SUBJECTIVE: Pt reports doing well. Is asking [...] 510 (H) 11/21/2023 045 MCV 89.4 11/21/2023 045 MCH 28.0 11/21/2023 045 MCHC 31.4 11/21/2023 [...] bedtime. -Continue Amlodipine 10mg Daily - Resume WARP KNITTING MACHINE OPERATOR losartan 50mg PO Daily when Cr is closer to baseline (1.0) Acute Kidney Injury Monitor urine output and BMP closely. 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 Would give [...] admitted on 11/10/[address] [facility] for emergent surgical debridement for demar's [...] are above goal here (FPG goal <150). WARP KNITTING MACHINE OPERATOR lantus 30 units BID, lispro 10 units TID AC, metformin 500mg BID. A1c 6.8% on 07/27/23. Complications include h/o diabetes related infections. Hold WARP KNITTING MACHINE OPERATOR metformin while admitted. Continue statin. 11/12 got 25u lantus (<0.2/kg) and 35u aspart. Likely needs increase in insulin dosing but also use caution with impaired renal clearance / worsening renal function and this can contribute to hypoglycemia. Serum glucose levels are slightly improved on WARP KNITTING MACHINE OPERATOR regimen of 30 U daily Lantus. Serum [...] by facility provider. Paranoid schizophrenia - restarted WARP KNITTING MACHINE OPERATOR meds (escitalopram 20mg qhs, trazodone 50mg qhs, [...] outpatient on 11/25 or 2 Resume patient's WARP KNITTING MACHINE OPERATOR losartan 50mg PO daily when Cr is closer to baseline (approx 1.0) Strict I/O, monitor UOP. Avoid nephrotoxins (IV contrast, NSAIDs), renal dosing of meds Medicine service will sign off. Please page Hospitalist Consult A on [place] for any further issues or questions. SUBJECTIVE/Events of Past 24 Hours: Hospital Day: 11 Mr Low feels well today. Denies any symptoms. Pain controlled. He believes postoperative dressing changes can be done by his current usp; I encouraged him to discuss that with his primary team and cyanide case hardener. Amenable to plan, looking forward to leaving [...] reviewed Scar Leyva MD Hospital Medicine * Paula Black DPM - 11/21/2023 [...] standpoint. Patient follows with Dr Hayden in [facility] and would prefer to follow up with him upon discharge. We are happy to schedule anappointment with patient if he wishes to follow up with our team. Please page professional services consultant resident with questions. Interval History Patient was [...] PM CDT SURGERY PROGRESS NOTE--PGY1 Matt Thibodeaux Devante : 1980 Sex: male SIGNIFICANT EVENTS IN [...] 0818 MCV 89.3 11/20/2023 0818 MCH 28.4 11/20/202318 MCHC 31.8 11/20/202318 RDW 14.3 11/20/2023817 MPV 9.2 11/20/202318 NEUTNO 6.51 (H) 11/20/2023817 LYMPHAB 2.07 11/20/2023817 MONOABSNO 1.27 (H) 11/20/2023817 EOSNUMB 0.45 11/20/2023817 BASO 0.03 11/20/2023817 Susceptibility [...] and BMP closely. 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 Would give [...] team was consulted and performed Lhallux amputation 7/10. Completed ceftriaxone and Flagyl will conclude tomorrow; [...] are above goal here (FPG goal <150). WARP KNITTING MACHINE OPERATOR lantus 30 units BID, lispro 10 units TID AC, metformin 500mg BID. A1c 6.8% on 07/27/23. Complications include h/o diabetes related infections. Hold WARP KNITTING MACHINE OPERATOR metformin while admitted. Continue statin. 11/12 got 25u lantus (<0.2/kg) and 35u aspart. Likely needs increase in insulin dosing but also use caution with impaired renal clearance / worsening renal function and this can contribute to hypoglycemia. Serum glucose levels are slightly improved on WARP KNITTING MACHINE OPERATOR regimen of 30 U daily Lantus. Serum glucose levels better controlled today and more consistent in the 126 - 165 range. Continue current dosing for now with monitoring of serum glucose levels. Paranoid schizophrenia - restarted WARP KNITTING MACHINE OPERATOR meds (escitalopram 20mg qhs, trazodone 50mg qhs, prazosin 1mg qhs). Given paliperidone (Invega) IM on 11/12/23 (due every 4 weeks for schizophrenia) Tobacco use - offer nicotine patches, gum, lozenges while inpatient H/o TBI Obesity RECOMMENDATIONS 11/15/23 Continue Lantus to 30 U qd Continuing amlodipine, monitoring BP to determine if second agent needed with recent improvement Resume patient's WARP KNITTING MACHINE OPERATOR losartan 50mg PO daily when Cr is closer to baseline (likely ~1.0) Strict I/O, monitor UOP. Avoid nephrotoxins (IV contrast, NSAIDs), renal dosing of meds Medicine service will sign off tomorrow 11/20 if clinical stability/improvement continues. Please page Hospitalist Consult A on [facility] for any further issues or questions. SUBJECTIVE/Events [...] today 11/19. Labs reviewed Scar Leyva MD [facility] * Scar Leyva MD - 11/19/2023 3:51 PM CDT MEDICINE CONSULT FOLLOW-UP- STAFF Matt Low : 1980 Sex: male Patient Summary: Matt Low is a 43 y.o. male with PMH of T2DM, prior TMA or right foot, HTN, paranoid schizophrenia, situs inversus, tobacco use, obesity, admitted on 11/10/[address] [facility] for emergent surgical debridement for demar's [...] are above goal here (FPG goal <150). WARP KNITTING MACHINE OPERATOR lantus 30 units BID, lispro 10 units TID AC, metformin 500mg BID. A1c 6.8% on 07/27/23. Complications include h/o diabetes related infections. Hold WARP KNITTING MACHINE OPERATOR metformin while admitted. Continue statin. 11/12 got 25u lantus (<0.2/kg) and 35u aspart. Likely needs increase in insulin dosing but also use caution with impaired renal clearance / worsening renal function and this can contribute to hypoglycemia. Serum glucose levels are slightly improved on WARP KNITTING MACHINE OPERATOR regimen of 30 U daily Lantus. One reading of 69 yesterday - unclear if patient had any symptoms. Continue current dosing for now with monitoring of serum glucose levels. Paranoid schizophrenia - restarted WARP KNITTING MACHINE OPERATOR meds (escitalopram 20mg qhs, trazodone 50mg qhs, prazosin 1mg qhs). Given paliperidone (Invega) IM on 11/12/23 (due every 4 weeks for schizophrenia) Tobacco use - offer nicotine patches, gum, lozenges while inpatient H/o TBI Obesity RECOMMENDATIONS 11/15/23 Continue Lantus to 30 U qd Continuing amlodipine, monitoring BP to determine if second agent needed with recent improvement Resume patient's WARP KNITTING MACHINE OPERATOR losartan 50mg PO daily when Cr is closer to baseline (likely ~1.0) Strict I/O, monitor UOP. Avoid nephrotoxins (IV contrast, NSAIDs), renal dosing of meds Medicine will continue to follow. Please page Hospitalist Consult A on [facility] for any further issues or questions. SUBJECTIVE/Events [...] Exam generally unchanged today 11/18. Labs reviewed cSar Leyva MD [facility] * PhillipKenrick Speedy Taylor, PT - 11/19/2023 1:21 PM CDT Physical Therapy Patient not seen today d/t prioritisation/time constraints. Kenrick Fisher, PT License #[id number] PT Tel #: [phone] [employer] or [email or web address] * Nicola Vasquez MD - 11/19/2023 11:54 AM CDT SURGERY PROGRESS NOTE--PGY1 Matt Thibodeaux [...] 2/2 uncontrolled Td2m. 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 Would give dose here if due and if available on formulary. 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 male pmhx of T2DM with prior right toe amputations [facility], s/p I&D x 2, currently [...] 104 11/19/2023 0758 CO2 24 11/19/2023 0758 CR 2.19 (H) 11/19/2023 0758 GLU 221 (H) 11/19/2023 0758 Lab Results Component Value Date/Time HGB 9.0 (L) 11/19/2023 0758 WBC 10.66 (H) 11/19/2023 0758 PLT 482 (H) 11/19/2023 0758 Microbiology: Perineal cultures 11/09: Actinomyces, Staph pettenkoferi, Staph epi No fungal, AFB, growth 11/09 Bcx - NG 11/16 hallux cultures: MRSA x 2, Staph lugdunensis in 1 of 2, group B strep in 1 of 2 Imaging results: Reviewed in [facility] Gulshan José MD ID fellow, PGY-4 Discussed [...] RN - 11/19/2023 10:39 AM CDT 11/19/23 [facility] Rapid Rounds Attendance Charge nurse;mine engineering manager;tray service worker Expected Discharge Disposition SNF (TCU) Today we still await: Placement process (Pt is medically ready for placement to TCU, but does not have an accepting facility yet) Case Management Discharge Milestones Documentation Transportation Plan WC/Taxi/Stretcher Prior Auth/Pre-Admit Screen (!) Not completed * Chayo Townsend OTR/Brian - 11/19/2023 9:53 AM CDT Occupational Therapy [...] on each: Self care/Home mgmt/ADL: 23 minutes EDWIN Alvarado/Brian Pager: [facility] OT Department Problem: Loss of [place] With ADLs, Risk for Goal: Will complete lower body dressing Description: Patient will complete lower body dressing with Modified [place] (6). Outcome: In progress Goal: Will toilet self Description: Patient will toilet self with Modified [place] (6). Outcome: In progress * Paula Black [...] OS for emergent surgical debridement for demar's gangren [...] standpoint. Patient follows with Dr Hayden in [facility] and would prefer to follow up with him upon discharge. We are happy to schedule anappointment with patient if he wishes to follow up with our team. Please page professional services consultant resident with questions. Interval History Patient was [...] Black DPM, 11/19/2023 12:43 PM * Chayo Townsend OTR/Brian - 11/18/2023 3:31 PM CDT Occupational Therapy [...] to see, aware of dizziness/bed alarm/mobility PT: tye Clinical Coordinator: discussed pt ASSESSMENT: Pt with [...] on each: Self care/Home mgmt/ADL: 35 minutes EDWIN Alvarado/Brian Pager: [facility] OT Department Problem: Loss of [place] With ADLs, Risk for Goal: Will complete lower body dressing Description: Patient will complete lower body dressing with Modified [place] (6). Outcome: In progress Goal: Will toilet self Description: Patient will toilet self with Modified [place] (6). Outcome: In progress * Kenrick Fisher Chi, PT - 11/18/2023 3:23 PM CDT Problem: Decreased Transfer Skills Goal: Patient will transfer sit to/from stand Description: Patient will transfer sit to/from stand while Heel touch WB on L LE in post-op shoe with (6) Modified [place] in order to mobilize in home by [...] up. Reconfirmed that he lives in an [facility] a 1 floor building. Has his own room w a toilet inside. He shares bathing facilities wother residents in the house. He eats his meals and snacks in the dining room. He has NO stairs to negotiate. 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 WARP KNITTING MACHINE OPERATOR Appropriate: Yes Kenrick Fisher, PT 11/18/2023 Pager: Lisa PT Dept * [...] are above goal here (FPG goal <150). WARP KNITTING MACHINE OPERATOR lantus 30 units BID, lispro 10 units TID AC, metformin 500mg BID. A1c 6.8% on 07/27/23. Complications include h/o diabetes related infections. Hold WARP KNITTING MACHINE OPERATOR metformin while admitted. Continue statin. 11/12 got 25u lantus (<0.2/kg) and 35u aspart. Likely needs increase in insulin dosing but also use caution with impaired renal clearance / worsening renal function and this can contribute to hypoglycemia. Serum glucose levels are slightly improved today with increase in Lantus to 28 U; increasing today to WARP KNITTING MACHINE OPERATOR dose of 30 U Lantus daily. Paranoid schizophrenia - restarted WARP KNITTING MACHINE OPERATOR meds (escitalopram 20mg qhs, trazodone 50mg qhs, prazosin 1mg qhs). Given paliperidone (Invega) IM on 11/12/23 (due every 4 weeks for schizophrenia) Tobacco use - offer nicotine patches, gum, lozenges while inpatient H/o TBI Obesity RECOMMENDATIONS 11/15/23 Increased Lantus to 30 U qd Continuing amlodipine, carvedilol discontinued as patient noted some dizziness and BP now near goal. Resume patient's WARP KNITTING MACHINE OPERATOR losartan 50mg PO daily when Cr is closer to baseline (likely ~1.0) Strict I/O, monitor UOP. Avoid nephrotoxins (IV contrast, NSAIDs), renal dosing of meds Medicine will continue to follow. Please page Hospitalist Consult A on [employer]q for any further issues or questions. SUBJECTIVE/Events of Past 24 Hours: Hospital Day: 8 Mr Low feels good today; more relaxed. Pain controlled. Hoping for discharge soon; he's curiousif his sister might be able to take him home tomorrow, or potentially to a facility (?[facility]?) for extra cares and assistance OBJECTIVE: [...] today 11/17. Labs reviewed Scar Leyva MD [facility] * Jabari Colby RN - 11/18/2023 12:19 PM CDT Pt [...] Services Address Phone Fax Patient Preferred [facility], A [facility] [facility] Pending - Request Sent N/A [address] [address] [phone] -- Internal Comment last updated by Caridad Dorsey 11/19/2023 0745 LVM for admissions .Caridad Dorsey, 11/19/2023 7:44 AM Sent email to Missy.Caridad Dorsey, 11/17/2023 2:24 PM Nena Ernandez, A [place] [facility] Pending - Request Sent N/A [address] [facility] [address] [phone] -- Internal Comment last updated by Caridad Dorsey 11/19/2023 0818 LVM for admissions.Caridad Dorsey, 11/19/2023 8:17 AM LVM for admissions.Caridad Dorsey, 11/18/2023 8:37 AM [facility] Declined N/A [address] [facility] [address] [phone] -- [facility] Declined No Contract with Patient's Insurance Carrier N/A [address] [place] [address] [phone] -- [facility] Declined Current smoking, Acuity too high N/A [address] [facility] [address] [phone] -- Internal Comment last updated by Caridad Dorsey 11/18/2023 0831 LVM for admissions.Caridad Dorsey, 11/18/2023 8:[address] [facility] Declined Bed not available N/A [id number] [facility] [phone] -- Internal Comment last updated by Caridad Dorsey 11/18/2023 0834 No bd available until next week. Caridad Dorsey, 11/18/2023 8:34 AM [facility] Declined Bed not available N/A [address] [facility] [address] [phone] -- Home Medical Care No active coordination exists for this encounter. * Aretha Damon MD - 11/18/2023 8:26 AM CDT ID PROGRESS NOTE Matt Low 1980 Male [id number] ASSESSMENT: # Necrotizing fascitis/Demar's gangrene s/p debridement # Left hallux gangrene s/p amputation # Type II diabetes mellitus 43 y.o. male pmhx of T2DM with prior right toe amputations transferred from [facility] forurnier's gangrene, s/p I&D x 2, currently on [...] 11/17/[address] Mullen-operative note available in [facility] Seen this a.m. and was quite sleepy. [...] RELEVANT DATA: Recent Labs 11/16/23 0845 11/17/23 14311/18/23 0902 NA 139 137 137 K 4.4 [...] 1 of 2 Imaging results: Reviewed in [facility] Gulshan José MD, 11/18/2023 8:26 AM Discussed [...] MD, 11/18/2023 1:51 PM * Afshan Sims DPM - 11/18/2023 8:11 AM CDT Images from [...] standpoint. Patient follows with Dr Hayden in [facility] and would prefer to follow up with him upon discharge. We are happy to schedule anappointment with patient if he wishes to follow up with our team. Please page professional services consultant resident with questions. Patient was discussed with professional services consultant staff, Interval History Patient was seen and [...] Podiatric Surgery Resident FACULTY NOTE TP note (PETRONA): I discussed with the resident and agree [...] Abdomen soft, non-tender, non-distended. Labs / Imaging: [facility] Lab Results Component Value Date/Time NA 137 [...] urine output closely. 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 Would give [...] admitted on 11/10/[address] [facility] for emergent surgical debridement for demar's [...] renal dysfunction, though UOP is acceptable. Holding WARP KNITTING MACHINE OPERATOR losartan 50mg daily. Started amlodipine 10 mg [...] are above goal here (FPG goal <150). WARP KNITTING MACHINE OPERATOR lantus 30 units BID, lispro 10 units TID AC, metformin 500mg BID. A1c 6.8% on 07/27/23. Complications include h/o diabetes related infections. Hold WARP KNITTING MACHINE OPERATOR metformin while admitted. Continue statin. 11/12 got [...] and diet improve. Paranoid schizophrenia - restarted WARP KNITTING MACHINE OPERATOR meds (escitalopram 20mg qhs, trazodone 50mg qhs, prazosin 1mg qhs). Given paliperidone (Invega) IM on 11/12/23 (due every 4 weeks for schizophrenia) Tobacco use - offer nicotine patches, gum, lozenges while inpatient H/o TBI Obesity RECOMMENDATIONS 11/15/23 Continue Lantus 28 U daily for now; may need to continue titration as diet and renal function improve Began carvedilol and amlodipine as above Resume patient's WARP KNITTING MACHINE OPERATOR losartan 50mg PO daily when Cr is closer to baseline (likely ~1.0) Switching to IV PRN hydralazine for more aggressive BP control Strict I/O, monitor UOP. Avoid nephrotoxins (IV contrast, NSAIDs), renal dosing of meds Medicine will continue to follow. Please page Hospitalist Consult A on [facility] for any further issues or questions. SUBJECTIVE/Events [...] Leyva MD Hospital Medicine * Amaury Lazo - 11/17/2023 2:54 PM CDT Pharmacy Enoxaparin [...] 11/17/2023 14:54 Pager: [employer] * Shannan Caruso OTR/L - 11/17/2023 1:00 PM CDT Pt in the OR this morning, now s/p amputation, toe left. Will hold OT for today, and will check back tomorrow. Shannan Partida OTR/Brian Pager: [phone] * Mabel Mathews RN - 11/17/2023 11:27 AM CDT TRANSFER IN NOTE D: Patient transferred in to STNU 2 from PACU at 1100. Patient condition on arrival: Stable, a/o X4, VSS, on RA, . Patient Belonging 11/10/2023 1440 Reason for Inventory: ED/APS Admission Patient or family informed of Patient Valuables and Belongings Policy (#[id number]): Due to patient condition, [facility] staff will inventory and secure patient valuables [...] Kumar RN - 11/17/2023 10:35 AM CDT 11/17/23 1034 Rapid Rounds Attendance Physician;Charge nurse;mine engineering manager;tray service worker;Bedside nurse Expected Discharge Disposition SNF (TCU for wound care) Today we still await: Procedure (Comment) (toe amputation today) Case Management Discharge Milestones Documentation CM Assessment Completed? Yes Patient/Family agree w/DC plan? Yes Transportation Plan WC/Taxi/Stretcher Prior Auth/Pre-Admit Screen (!) Not completed 11/17/23 1034 Rapid Rounds Attendance Physician;Charge nurse;mine engineering manager;tray service worker;Bedside nurse Expected Discharge Disposition SNF (TCU for wound care) Today we still await: Procedure (Comment) (toe amputation today) Case Management Discharge Milestones Documentation CM Assessment Completed? Yes Patient/Family agree w/DC plan? Yes Transportation Plan WC/Taxi/Stretcher Prior Auth/Pre-Admit Screen (!) Not completed Pt will DC to TCU, as his usp cannot do the daily dressing changes to [...] discharge. Patient follows with Dr Hayden in [facility] CHIEF COMPLAINT: Immediate postop HISTORY OF PRESENT [...] 9:19 AM CDT SURGERY PROGRESS NOTE--PGY1 Matt Low : 1980 Sex: male SIGNIFICANT EVENTS IN THE PAST 24 HRS: NAEON, NPO since midnight for toe amputation at 0800. [...] kg/m??. Intake/Output Summary (Last 24 hours) at 11/17/2023 09 Last data filed at 11/16/2023 1600 Gross [...] urine output closely. 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 Would give [...] 11/17/2023 9:19 AM PGY-1 General Surgery * Kenrick Fisher Chi, PT - 11/16/2023 3:25 PM CDT Physical [...] d/c for continued wound cares b/c his does not do wound cares. Kenrick Fisher, PT License #[id number] PT Tel #: [phone] [employer] or [email or web address] * Nico Hogue MD - 11/16/2023 9:49 AM CDT SURGERY PROGRESS NOTE--PGY1 Matt Low [...] Actinomyces species Medicine consult (11/14): Resume patient's WARP KNITTING MACHINE OPERATOR losartan 50mg PO daily when Cr is [...] urine output closely. 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 Would give [...] are above goal here (FPG goal <150). WARP KNITTING MACHINE OPERATOR lantus 30 units BID, lispro 10 units TID AC, metformin 500mg BID. A1c 6.8% on 07/27/23. Complications include h/o diabetes related infections. Hold WARP KNITTING MACHINE OPERATOR metformin while admitted. Continue statin. 11/12 got [...] renal dysfunction, though UOP is acceptable. Holding WARP KNITTING MACHINE OPERATOR losartan 50mg daily. Agree with prn hydralazine but would changeto PO. Could start new agent (such as amlodipine) but patient should ultimately resume ARB once renal function is improved Paranoid schizophrenia - restarted WARP KNITTING MACHINE OPERATOR meds (escitalopram 20mg qhs, trazodone 50mg qhs, prazosin 1mg qhs). Given paliperidone (Invega) IM on 11/12/23 (due every 4 weeks for schizophrenia) Tobacco use - offer nicotine patches, gum, lozenges while inpatient H/o TBI Obesity RECOMMENDATIONS 11/15/23 Continue Lantus 28 U daily for now; may need to continue titration as diet and Resume patient's WARP KNITTING MACHINE OPERATOR losartan 50mg PO daily when Cr is [...] follow. Please page Hospitalist Consult A on [facility] for any further issues or questions. SUBJECTIVE/Events [...] at baseline. Labs reviewed Scar Leyva MD Hospital Medicine * Chayo Townsend, OTR/L - 11/15/2023 [...] brief walk in hallway- pt tends to bean picker walker versus push- does not use walker [...] provide clear picture of assistance available at [facility]- however, per chart review only receives assistance [...] on each: Self care/Home mgmt/ADL: 28 minutes EDWIN Alvarado/L Pager: Lisa OT Department Problem: Loss of Columbia With ADLs, Risk for Goal: Will complete lower body dressing Description: Patient will complete lower body dressing with Modified [place] (6). 11/15/2023 1400 by Chayo Townsend OTR/L Outcome: In progress 11/15/2023 1357 by Chayo Townsend OTR/L Outcome: In progress Goal: Will toilet self Description: Patient will toilet self with Modified Columbia (6). 11/15/2023 1400 by Chayo Townsend OTR/L Outcome: In progress 11/15/2023 1357 by Chayo Townsend OTR/Brian Outcome: In progress * Kenrick Fisher Chi, PT - 11/15/2023 11:23 AM CDT Images from the original note were not included. Problem: Decreased Transfer Skills Goal: Patient will transfer sit to/from stand Description: Patient will transfer sit to/from stand with (6) Modified [place] in order to mobilize in home by 11/28/23. Outcome: In progress Problem: Decreased Ambulatory Skills Goal: Improve gait Description: Ambulate 100 meters using No assistive devices with (6) Modified [place] in orderto mobilize in home and community [...] transfer supine to/from sit with (6) Modified [place] in order to mobilize in/out of bed [...] sometimes does not do stairs, at his [facility]. Ambulated independently without an AD. Said hiswalking [...] be good for someone to contact his JUDE to see what kind of help he gets/can get from [facility] staff and if he needs to do [...] vs try no AD. Try stairs eventually? WARP KNITTING MACHINE OPERATOR Appropriate: Yes Kenrick Fisher, PT 11/15/2023 Pager: [facility] PT Dept * Jay Ibanez MD - 11/15/2023 9:47 AM CDT SURGERY PROGRESS NOTE--PGY1 Matt Low [...] Intake/Output Summary (Last 24 hours) at 11/15/2023 0948 Last data filed at 11/15/2023 0640 Gross [...] (H) 11/15/2023 0739 CR 2.83 (H) 11/15/2023 07 CR 2.86 (H) 11/15/2023 07 CA 7.6 (L) 11/15/2023 0739 CMP Lab [...] 11.96 (H) 11/14/2023 0530 RBC 3.21 (L) 11/14/2023529 HGB 9.1 (L) 11/14/2023 05 HCT 28.5 (L) 11/14/2023 05 PLT 372 11/14/2023 05 MCV 88.8 11/14/2023 05 MCH 28.3 11/14/2023529 MCHC 31.9 11/14/2023 0530 RDW 13.4 11/14/2023 [...] Actinomyces species Medicine consult (11/14): Resume patient's WARP KNITTING MACHINE OPERATOR losartan 50mg PO daily when Cr is [...] urine output closely. 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 Would give [...] Crawford LGSW - 11/15/2023 9:39 AM CDT Guide Dog Mobility Instructor Progress Note Spoke to SABINE Hartman at [facility], where patient resides. Informed her pt will likely be ready for discharge towards the end of the week per MDR. Asked if they are able to assist with daily wound care. Unfortunately facility cannot help with this. The facility helps with med management, meals, housekeeping, and laundry. May have to explore options for home health or TCU for woundcare. [facility] - [phone] opt 3. Dominga Crawford LGSW, 11/15/2023 2:59 PM * Chayo Townsend OTR/Brian - 11/15/2023 9:01 AM CDT OCCUPATIONAL THERAPY This patient was not seen by OT due to patient being unwilling to participate at this time. Pt asleep at OT arrival, opens eyes to name. Requests to rest and closes eyes- OT will return later today to continue OT POC. Anticipate pt may be able to return to usp given participation with PT on 11/13 but [...] admitted on 11/10/[address] [facility] for emergent surgical debridement for demar's [...] are above goal here (FPG goal <150). WARP KNITTING MACHINE OPERATOR lantus 30 units BID, lispro 10 units TID AC, metformin 500mg BID. A1c 6.8% on 07/27/23. Complications include h/o diabetes related infections. Hold WARP KNITTING MACHINE OPERATOR metformin while admitted. Continue statin. 11/12 got 25u lantus (<0.2/kg) and 35u aspart. Likely needs increase in insulin dosing but also use caution with impaired renal clearance / worsening renal function and this can contribute to hypoglycemia. HTN - above goal overnight. ARB is being held. Also may be hypervolemic given renal dysfunction, though UOP is acceptable. Holding WARP KNITTING MACHINE OPERATOR losartan 50mg daily. Agree with prn hydralazine but would changeto PO. Could start new agent (such as amlodipine) but patient should ultimately resume ARB once renal function is improved Paranoid schizophrenia - restarted WARP KNITTING MACHINE OPERATOR meds (escitalopram 20mg qhs, trazodone 50mg qhs, prazosin 1mg qhs). Given paliperidone (Invega) IM on 11/12/23 (due every 4 weeks for schizophrenia) Tobacco use - offer nicotine patches, gum, lozenges while inpatient H/o TBI Obesity RECOMMENDATIONS 11/15/23 Increase lantus to 28 units q24h Resume patient's WARP KNITTING MACHINE OPERATOR losartan 50mg PO daily when Cr is closer to baseline (likely ~1.0) Recommend hydralazine 10mg PO q6h prn for SBP >180 Strict I/O, monitor UOP. Avoid nephrotoxins (IV contrast, NSAIDs), renal dosing of meds Medicine will continue to follow. Please page Hospitalist Consult A on telmediq for any further issues or questions. SUBJECTIVE/Events [...] - 11/14/2023 2:55 PM CDT SURGERY PROGRESS NOTE--PIGGYBACK CLERK Matt M Devante : 1980 Sex: male SIGNIFICANT EVENTS IN [...] 40 (H) 11/14/2023 0530 CR 3.21 (H) 11/14/2023 0530 CA 8.2 (L) 11/14/2023 0530 CMP Lab Results Component Value Date/Time NA 136 11/14/2023 0530 K 4.1 11/14/2023 0530 CHLORIDE 103 11/14/2023 0530 CO2 24 11/14/2023 0530 GLU 194 (H) 11/14/2023 0530 UN 40 (H) 11/14/2023 0530 CR 3.21 (H) 11/14/2023 0530 CA 8.2 (L) 11/14/2023 0530 MG 2.4 11/14/2023 0530 ALBUMIN 2.9 (L) 11/10/2023 1431 TPRO 7.1 11/10/2023 1431 ALP 104 11/10/2023 1431 ALT 9 11/10/2023 1431 AST 14 11/10/2023 1431 TBILI 0.3 11/10/2023 1431 Lab Results Component Value Date/Time WBC 11.96 (H) 11/14/2023 0530 RBC 3.21 (L) 11/14/2023 0530 HGB 9.1 (L) 11/14/2023529 HCT 28.5 (L) 11/14/2023529 PLT 372 11/14/2023529 MCV 88.8 11/14/2023529 MCH 28.3 11/14/2023529 MCHC 31.9 11/14/2023529 RDW 13.4 11/14/2023529 MPV 9.8 11/14/2023529 NEUTNO 13.41 (H) 11/11/2023535 LYMPHAB 2.96 11/11/2023535 MONOABSNO 0.87 11/11/2023535 EOSNUMB 0.00 11/10/2023 1431 BASO 0.17 11/11/2023535 Susceptibility data from last 90 days. Collected [...] urine output closely. 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 Would give [...] assist Disposition: CHRIS Cordero Ma MS3 11/14/2023 [facility] Department of Surgery Pager: via telemediq RESIDENT [...] admitted on 11/10/[address] [facility] for emergent surgical debridement for demar's [...] are above goal here (FPG goal <150). WARP KNITTING MACHINE OPERATOR lantus 30 units BID, lispro 10 units TID AC, metformin 500mg BID. A1c 6.8% on 07/27/23. Complications include h/o diabetes related infections. Hold WARP KNITTING MACHINE OPERATOR metformin while admitted. Continue statin. 11/12 got 25u lantus (<0.2/kg) and 35u aspart. Likely needs increase in insulin dosing but also use caution with impaired renal clearance / worsening renal function and this can contribute to hypoglycemia. HTN - above goal overnight. ARB is being held. Also may be hypervolemic given renal dysfunction, though UOP is acceptable. Holding WARP KNITTING MACHINE OPERATOR losartan 50mg daily. Agree with prn hydralazine but would changeto PO. Could start new agent (such as amlodipine) but patient should ultimately resume ARB once renal function is improved Paranoid schizophrenia - restarted WARP KNITTING MACHINE OPERATOR meds (escitalopram 20mg qhs, trazodone 50mg qhs, [...] follow. Please page Hospitalist Consult A on telmediq for any further issues or questions. SUBJECTIVE/Events [...] recent) Autumn Lamar PharmD 11/13/2023 15:25 Pager: ([employer]) * Nico Hogue MD - 11/13/2023 8:25 AM CDT Images from the original note were not included. SURGERY PROGRESS NOTE--PGY1 Matt M Daryamaryzena : 1980 Sex: male SIGNIFICANT EVENTS [...] 11/13/2023 0518 CA 7.8 (L) 11/13/2023 0518 ALBUMIN 2.9 (L) 11/10/2023 1431 TPRO 7.1 [...] Component Value Date/Time WBC 13.27 (H) 11/13/2023517 RBC 3.28 (L) 11/13/2023517 HGB 9.2 (L) 11/13/2023517 HCT 30.0 (L) 11/13/2023517 PLT 317 11/13/2023517 MCV 91.5 11/13/2023517 MCH 28.0 11/13/2023517 MCHC 30.7 (L) 11/13/2023517 RDW 13.5 11/13/2023517 MPV 10.1 11/13/2023517 NEUTNO 13.41 (H) 11/11/2023535 LYMPHAB 2.96 11/11/2023535 MONOABSNO 0.87 11/11/2023535 EOSNUMB 0.00 11/10/2023 1431 BASO 0.17 11/11/2023535 Collected Specimen Type Organism 11/10/23 Tissue Staphylococcus epidermidis Actinomyces species Staphylococcus pettenkoferi 11/10/23 Swab Anaerococcus vaginalis 11/10/23 Swab Staphylococcus epidermidis Actinomyces species 11/10/2023171211/12/2023 1417 ANAEROBE CULTURE [[id number]] (Abnormal) Tissue from Perineal 2:Perineal tissue Preliminary result Component Value Preliminary Report Positive Culture Many mixed anaerobes present. Culture in progress. POS 11/10/2023 17111/12/2023 1441 TISSUE CULTURE:INCLUDES GRAM STAIN [[id number]] (Abnormal) Tissue from Perineal 2:Perineal tissue Preliminary [...] Many gram positive cocci in clusters. POS 11/10/2023171111/12/2023 1416 ANAEROBE CULTURE [[id number]] (Abnormal) Swab from Perineal 1: Perineal tissue swab Preliminary result Component Value Preliminary Report Moderate Anaerococcus vaginalis isolated. Culture in progress. POS Organism ANAEROCOCCUS VAGINALIS POS 11/10/2023171111/12/2023 1534 WOUND CULTURE:GRAM STAIN OPTIONAL [[id number]] (Abnormal) Swab from Perineal 1: Perineal tissue [...] NPO with excellent blood sugarcontrol. - hold homicide squad captain metformin while admitted, resume on discharge [...] hypertension while here - agree with holding homicide squad captain antihypertensives (losartan 50mg daily, , consider restarting closer to DC - restart homicide squad captain rosuvastatin 10mg qHS Paranoid schizophrenia - restart homicide squad captain escitalopram 20mg qhs, trazodone 50mg qhs, prazosin 1mg qhs (ordered) - receives outpatient paliperidone (Invega) IM every 4 weeks for schizophrenia at [facility] [place], unclear when last dose was. Would give [...] RECOMMENDATIONS: Demar's Gangrene Necrotizing fasciitis Transferred from [facility] for scrotal swelling, pain, concern for Demar's [...] NPO with excellent blood sugarcontrol. - hold homicide squad captain metformin while admitted, resume on discharge [...] hypertension while here - agree with holding homicide squad captain antihypertensives (losartan 50mg daily, , consider restarting closer to DC - restart homicide squad captain rosuvastatin 10mg qHS Paranoid schizophrenia - restart homicide squad captain escitalopram 20mg qhs, trazodone 50mg qhs, prazosin 1mg qhs (ordered) - receives outpatient paliperidone (Invega) IM every 4 weeks for schizophrenia at [facility] [place], unclear when last dose was. Would give dose here if due and if available on formulary. Tobacco use - offer nicotine patches, gum, lozenges while inpatient - cessation counseling as able (pt unable to engage today) H/o TBI Obesity PLAN: Neuro/Pain Control: Multimodal Scheduled: Tylenol, Gabapentin, cyclobenzaprine PRN: Hydromorphone CV: Monitor blood pressure and pulse and intervene as needed. Restart homicide squad captain rosuvastatin 10mg qHS Pulm: Encourage incentive [...] Disposition: Nico Murray MD, 11/13/2023 8:25 AM [facility] Department of Surgery Pager: via telemediq Surgery [...] Type 2 DM with neuropathy, retinopathy - WARP KNITTING MACHINE OPERATOR lantus 30 units BID, lispro 10 units TID AC, [id number] BID. A1c 6.8% on 07/27/23. Complications include h/o diabetes related infections. Hold WARP KNITTING MACHINE OPERATOR metformin while admitted. Continue statin. HTN - mostly at goal off antihypertensives. Holding WARP KNITTING MACHINE OPERATOR losartan 50mg daily Paranoid schizophrenia - restarted WARP KNITTING MACHINE OPERATOR meds (escitalopram 20mg qhs, trazodone 50mg qhs, [...] follow. Please page Hospitalist Consult A on [employer] for any further issues or questions. SUBJECTIVE/Events [...] VANCOMYCIN 47.5 11/12/2023 (most recent) Gala Salinas, Jaxon 11/12/2023 14:59 Pager: (Tel[employer]) * Gracia Kumar RN - 11/12/2023 1:00 PM CDT 11/12/23 1254 Automotive Shop Foreman Used. Automotive Shop Foreman Used None needed (interview conducted with [facility] staff) Social Information Living Situation [facility] Facility Admitted From hospital (Admitted from [facility]) Name of facility [facility] Patient medically appropriate to transfer back to outside hospital? No Patient Identified Support System AL staff Services Receiving RAILROAD REPAIRER / Skilled Services;Case Management;Waivered services (see comment) Complex Medical Needs Other (see comment) Transportation Used for Discharge wound care Safety Concerns None Behavioral Health Concerns None Patient Family Goals Patient's Discharge Goal back to [facility] Family's Discharge Goal no family Plan/Interventions Expected Discharge Disposition Fdc Was Patient Choice Provided? No Who was Choice Provided to? Other (comment) (pt will return to WARP KNITTING MACHINE OPERATOR facility when medically stable) Patient Information Verification Verified demographic information, including SSN, Next of Kin, and Guardianship Yes Verified PCP Yes If post-acute placement is needed, have vaccination status needs been addressed? Yes Pt admitted from [facility] after [facility] for treatment of Demar's gangrene of perineal area * Nico Hogue MD - 11/12/2023 8:02 AM CDT SURGERY PROGRESS NOTE--PIGGYBACK CLERK Matt Low : 1980 Sex: male SIGNIFICANT [...] 1.03 11/11/2023 1842 CA 8.0 (L) 11/11/2023 184 CBC w/Diff Lab Results Component Value Date/Time WBC 17.41 (H) 11/11/2023 0536 RBC 2.72 (L) 11/11/2023 0536 HGB 7.8 (L) 11/11/2023 0536 HCT 24.1 (L) 11/11/2023 0536 PLT 203 11/11/2023535 MCV 88.6 11/11/2023535 MCH 28.7 11/11/2023535 MCHC 32.4 11/11/2023535 RDW 13.2 11/11/2023535 MPV 10.1 11/11/2023535 NEUTNO 13.41 (H) 11/11/2023535 LYMPHAB 2.96 11/11/2023535 MONOABSNO 0.87 11/11/2023535 EOSNUMB 0.00 11/10/2023 1431 BASO 0.17 11/11/2023535 ASSESSMENT: 43 y.o. male pmhx of T2DM [...] Disposition: Nico Murray MD, 11/12/2023 8:03 AM [facility] Department of Surgery Pager: via telemediq Surgery [...] Churchill MD, 11/17/2023 7:19 AM * Gloria Velez, SABINE - 11/11/2023 4:36 PM CDT PACU to [...] Comments: RN: Gloria Velez RN Extension #: [id number] * Robert Kruse MDIV - 11/11/2023 1:43 PM CDT SPIRITUAL CARE VISIT SUMMARY Matt Low : 1980 Sex: male LOS: 1 day Reason for visit: Referral Assessment: Pt/family uncertain/anxious/frustrated;Pt/family coping/relieved Intervention: Compassionate support;Facilitate communication;Lead/support spiritual rituals Outcome: Situation assessed;Gratitude expressed;Ritual provided Notes: I met with Matt at bedside during rounds. Matt shared that he wanted a prayer for healing and [facility] of his health which I offered as requested. He had no other support needs at this time. Plan: Spiritual Care Team is available to support patient and family as needed via number [phone]. Robert Kruse MDIV, 11/11/2023 1:43 PM Number: [phone] * Hannah Boland RT - 11/11/2023 12:40 [...] male D: Matt Low was admitted to [facility] from PACU at 0600 for Fourniers [...] and notify providerand/or team as needed. Sheila Dias RN, 11/11/2023 7:14 AM Patient Belonging 11/10/2023 1440 Reason for Inventory: ED/APS Admission Patient or family informed of Patient Valuables and Belongings Policy (#[id number]): Due to patient condition, [facility] staff will [place] and secure patient valuables Items Needing Securement: Cell phone Cell Phone Secured?: Yes Cell Phone Visually Damaged: Yes Patient Belongings: Clothing Clothing Comments: shirt, 1 shoe, 1 sock, * Gracia Tirado MDIV - 11/10/2023 3:26 PM CDT Adoption Manager Stabilization Room Note Matt Low : 1980 Sex: male LOS: 0 days Initial Description: Matt Low with history of gangrene. Pt was responding appropriately to questions. Patient and Family Context: No family present. Pt came from a facility in [place]. Plan: Spiritual Care Team is available to support patient and family as needed via number [phone]. Gracia Tirado MDIV, 11/10/2023 3:27 PM Number: [phone] * Camilla Treviño, PharmD - 11/10/2023 2:38 [...] for 2 days. He was transferred from [place] for Demar's gangrene. He has a history of T2DM on 10u long acting insulin three times daily, situs inversus, and TBI several years ago and lives in a [facility]. CT at OSH showed gas in perineal [...] the patient on the date of the blurb writer's note. I discussed with the blurb writer of the note and agree with their findings and plan documented in the blurb writer's note from above. Any revisions by [...] medications. Assessment: Pertinent points to note: -- WARP KNITTING MACHINE OPERATOR losartan, metformin and ibuprofen all discontinued due to ongoing acute kidney injury. I have reviewed the patient's medications for discharge and have discussed the necessary changes with the provider. Changes have been made and medication list updated and complete. Please page with any questions. Gala Salinas PharmD 11/24/2023 14:22 For questions regarding this note, please contact pharmacist on service at PharmD ST[facility] (Location) [phone]. If no response within needed timeframe, please contact central pharmacy via phone at [phone]. Planned discharge medications are: Medication List Medications [...] 2 Diabetes Reduced from twice daily dosing WARP KNITTING MACHINE OPERATOR, per Medicine recommendations. insulin LISPRO 100 UNIT/ML Kwikpen Commonly known as: HumaLOG KwikPen Inject 6 UNITS subcutaneously 3 times daily before meals. Reduced from 10 units per dose WARP KNITTING MACHINE OPERATOR, per Medicine recommendations. Invega Sustenna 156 MG/ML [...] ceftriaxone and Flagyl. Plan for intraoperative cultures 11-16. 4. Vascular: Ordered left lower extremity arterial [...] follow. Patient follows with Dr Hayden in [place] WARP KNITTING MACHINE OPERATOR Please page professional services consultant resident with questions. Patient was seen with professional services consultant staff, Dr. Black CHIEF COMPLAINT: Left hallux wound HISTORY OF PRESENT ILLNESS: Matt Low is a 43 y.o. male presenting with left hallux necrosis. [place] [facility] [place] concern for foreigners gangrene on 11-09. [...] AND DEBRIDEMENT, PERINEAL WOUND; Laterality: N/A; Surgeon: Donoavn Sloan MD; Service: General Surgery CURRENT HEALTH [...] 74.09 Activity Intolerance Z 73.89 PRECAUTIONS [place] Automotive Shop Foreman Used: None needed ACTIVITY Up ad Celia [...] Type 2 DM with neuropathy, retinopathy - WARP KNITTING MACHINE OPERATOR lantus 30 units BID, lispro 10 units TID AC, [id number] BID. A1c 6.8% on 07/27/23. Complications include h/o diabetes related infections. Hold WARP KNITTING MACHINE OPERATOR metformin while admitted. Continue statin. HTN - mostly at goal off antihypertensives. Holding WARP KNITTING MACHINE OPERATOR losartan 50mg daily Paranoid schizophrenia - restarted WARP KNITTING MACHINE OPERATOR meds (escitalopram 20mg qhs, trazodone 50mg qhs, prazosin 1mg qhs). Given paliperidone (Invega) IM on 11/12/23 (due every 4 weeks for schizophrenia) Tobacco use - offer nicotine patches, gum, lozenges while inpatient Medical History No past medical history on file. SOCIAL HISTORY Information gathered from: Patient Home: [facility] in [place] Prior level of function: independent Baseline Ambulation: [...] Status: Oriented X 3, Alert, and Cooperative, thought [facility] in [facility] Follows Direction: Yes, 1step OBJECTIVE Initial patient [...] A&Ox3, but thought at hospital in [facility]. Anticipate pt will be able to d/c [...] when ready, stairs as able, standing balance. WARP KNITTING MACHINE OPERATOR Appropriate: Yes Participated in goal setting and treatment planning: Patient Agrees with goals and treatment plan: Patient - Yes. Che Garcia, PT 11/14/2023 Pager: [facility] PT Department * Guru Franco MD - 11/13/2023 1:14 PM CDTAssociated Order(s): CONSULT TO INFECTIOUS DISEASE ID-2 NEW CONSULT NOTE Matt Low 1980 male [id number] REASON FOR CONSULT: I was asked to see Matt Low by Zac Churchill regarding Demar's gangrene. ASSESSMENT: 43 y.o. male pmhx of T2DM with prior right toe amputations transferred from [facility] forurnier's gangrene, s/p I&D x 2, currently on [...] with prior right toe amputations transferred from [facility] forsotal swelling, pain, concern for Demar's gangrene, also found to have swelling and darkening of left toe consistent with gangrene. Febrile on arrival to 40.1 C, no fever since. WBC 21 on arrival, decreasing. Now s/p I&D of perineal nec fasc 11/09, sharp excisional debridement. Return to [facility] on 11/10. Per OR note: Sharp excisional [...] Component Value Date/Time WBC 13.27 (H) 11/13/2023 05 PLT 317 11/13/2023517 HGB 9.2 (L) 11/13/2023517 CR 3.04 (H) 11/13/2023 05 Lab Results Component Value Date/Time WBC 13.27 (H) 11/13/2023517 WBC 17.87 (H) 11/12/2023 1136 WBC 17.41 (H) 11/11/2023 05 Lab Results Component Value Date/Time CR 3.04 (H) 11/13/2023517 CR 2.24 (H) 11/12/2023 1136 CR 1.03 [...] tissue fungal cx Imaging results: Reviewed in [facility], Guru Swan MD, 11/13/2023 1:14 PM FACULTY NOTE I [...] General Precautions: Falls Risk Hospital Course: Per MD note 11/11, ASSESSMENT: 43 y.o. male pmhx [...] date) Patient is living in a/an : [facility] Prior Level of Function: ADLs/IADLs: Received assistance [...] to month and year; not to place [facility]; intermittently follows 1 steps commands; confused [...] with prior right toe amputations transferred from [facility] with Demar's gangrene admitted on 11/09 for emergent surgical debridement. S/p perineal debridement (11/09 and 11/10). [facility] baseline [facility] from [facility]. Pt unable to provide any social history [...] spent on each: Eval: 18 minutes Therapist: SADE Alvarado Pager: [facility] [facility] Occupational Therapy Department * Sophie Barajas MD - 11/12/2023 10:07 AM CDTAssociated Order(s): CONSULT TO MEDICINE SERVICES INTERNAL MEDICINE CONSULT- STAFF Matt Low : 1980 Sex: male Reason for Consult: Diabetes management, antibiotic selection IMPRESSION AND RECOMMENDATIONS: Demar's Gangrene Necrotizing fasciitis Transferred from [facility] for scrotal swelling, pain, concern for Demar's [...] NPO with excellent blood sugarcontrol. - hold homicide squad captain metformin while admitted, resume on discharge [...] hypertension while here - agree with holding homicide squad captain antihypertensives (losartan 50mg daily, , consider restarting closer to DC - restart homicide squad captain rosuvastatin 10mg qHS Paranoid schizophrenia - restart homicide squad captain escitalopram 20mg qhs, trazodone 50mg qhs, prazosin 1mg qhs (ordered) - receives outpatient paliperidone (Invega) IM every 4 weeks for schizophrenia at [facility] [place], unclear when last dose was. Would give [...] long enough to participate indiscussion. Transferred from [facility] for scrotal pain and swelling, concern for [...] including pre-visit review of separately obtained history, [id number] interaction performing medically appropriate physical exam, patientcounseling/education, [...] 3:41 PM CDT Operative Report - PGY2 [facility] Matt Anne : 1980 Sex: M Procedure: [...] taken to the OR identified as Matt MoreliaVj Shahidzena and the procedure and site verified by [...] 6:07 PM CDT OPERATIVE REPORT - PGY5 [facility] Matt Low : 1980 Sex: male Procedure: [...] PM CDT Pt BIBA as transfer from [place]. 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 Pt given Ertapenem 1gm and Insulin 10 units WARP KNITTING MACHINE OPERATOR. BS 400 at outside hospital. Pt is [...] Physical Therapy Inpatient Discharge Summary Stephanie Low [id number] PT Discharge Recommendations DC Recommendations: Post-acute placement recommended. (11/22/231399) Post Discharge follow-up: PT at post-acute placement (11/22/231399) Equipment Status: Equipment needs being determined;Equipment issued (11/22/231399) PT Equipment Recommended: Front wheeled walker (11/22/231399) Recommend PM&R consult (PT): * (No) (11/18/231509) Diagnosis Patient Active Problem List Diagnosis 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HHS) Hyperglycemia At risk for sexually transmitted infection due to unprotected sex Precautions: Weight Bearing Restrictions: Heel touch WB on L LE in post-op shoe- s/p L great toe amputation. (Per podiatry- WB restriction for at least 2 weeks from DOS: 11/17/2023.) (11/22/231399) Wound in groin Complies w/ Weight Bearing?: No (11/22/231399) Pain at final sessions: Pain Rating With Activity (Numeric): 0 (11/18/230) Transfer & Bed Mobility Roll Right: Modified independent (11/18/23 1510) Supine to/from Sit: Modified independent (11/22/23 1400) Sit to/from Stand: Modified independent (11/22/231399) Scooting: Modified independent (back in recliner when [...] LE in post-op shoe with (6) Modified [place] in order to mobilize in home by [...] Discharge to Rehab Facility Physical Therapist: Kenrick Fisher PT Date: 11/24/2023 Pager: [facility] PT Department * Discharge non-MD/non-MIRI Summaries - Lior Azul - 11/25/2023 7:36 AM CDT Summary: DC to SNF Care Coordination Discharge Note Expected DC Date: 11/25/23 Expected DC Time: 13h30 Final Discharge Destination: Selected Continued Care - Admitted Since 11/10/2023 Destination Coordination complete. Service Provider Selected Services Address Phone Fax Patient Preferred [facility] [address] [facility] [phone] -- Summary: Insurance approved Patient has been accepted to continue rehabing at the aforementioned post acute facility. Patient is on board with plan. CC spoke with patient in person in the room Photoengraving Etcher Apprentice also confirmed with Minnie REGALADO at . Also, DC summary faxed to [phone], via ustyme. WC ride has been ordered. COMPUTING TUTOR (Bisque Kiln Placer Control Tower Operator) will schedule. Check [id number] for confirmation. Medical team is aware. They will work writing DC orders. CC sent DC orders to SNF by ustyme fax. Medical team is aware any controlled substances must be printed and signed to be sent in physical form to the TCU. PLEASE MAKE SURE RX IS COMPLETE. MAKE SURE QUANTITY IS ADDED. Also, PSC/OFFICE MACHINES SALES REPRESENTATIVE/RN will fax it to TCU [facility] (this is required so in case of pain during transport, pain control can be addressed) Bedside nurse: please confirm this is done. A [employer] thread has been started. CC will continue to follow until DC. Please use Location for any further questions. * Nursing Assessment - Sheila Dias, RN - 11/25/2023 2:40 AM CDT Nursing [...] Townsend, OTR/L - 11/24/2023 12:59 PM CDT [facility] Occupational Therapy Discharge Summary Stephanie Low [...] subacute rehab. Patient Name: Stephanie Low MR#: [id number] Date of : 1980 Age: 43 y.o. [...] (assumed- pt unable to confirm this date) (11/13/231099) Patient is living in a/an : [facility] (11/13/23 1100) Prior Level of Function (WARP KNITTING MACHINE OPERATOR): ADLs/IADLs: Received assistance from staff at residence [...] complete during session, Ax1 with nursing (11/18/23 1510) Bathing: Supervision/Stand by assist (11/24/23 1200) Bathing Comments: to complete UB bed bath seated in recliner (11/24/23 1200) Upper Body Dressing: Minimal assist (75% patient effort) (11/24/23 1200) Upper Body Dressing Comments: gown management (11/24/23 1200) Lower Body Dressing: Maximal assist (25% patient effort) (11/18/23 1510) Lower Body Dressing Comments: to don shoe on R foot, surgical shoe in place on L at start of session (11/18/23 1510) Functional Mobility Roll Left : Moderate assist [...] - Method: Standing pivot w/ AD (11/19/23 0900) Toilet Transfer: Supervision/Stand by assist (11/24/23 1200) Toilet Transfer- Method: Grab bar (11/24/231199) Bed to Bathroom: Supervision/Stand by assist;Verbal cues (11/24/231199) Bed to Bathroom- Method: None (11/24/231199) Functional Mobility in Room- Task Done: walk in hallway for ADL endurance (11/18/23 1510) Functional Mobility in Room: Minimal assist (75% patient effort) (11/18/23 151) Functional Mobility in Room- Method: None (11/18/231509) Motor / Splints: Cognition Mental Status: Alert;Cooperative;Follows 1 step direction;Oriented x 3 (11/24/231199) Delirium Assessment: Delirium Assessment - CAM Short (Confusion Assessment Method) Acute onset OR fluctuating course: No (11/19/23 09) Inattention: Yes (11/13/23 1100) Disorganized Thinking: No (11/24/231199) Altered level of consciousness: No (11/24/231199) CAM result: Negative (11/19/23899) Visual Perception: Patient / Caregiver Training: See [...] 0 mL (11/17/231999) Stool (unmeasured): 1 (11/23/23 09) Stool Amount: small (11/15/23 1700) Stool Color: light brown (11/15/23 170) Stool Consistency: loose (per pt) (11/23/23899) Liquid [...] Amount: small (11/15/230) Stool Color: light brown (11/15/231699) Stool Consistency: [...] Amount: small (11/15/230) Stool Color: light brown (11/15/23 1700) Stool [...] -- 10 Wound 11/10/23 Incision Perineum 11/10/23 170 Perineum 13 Wound 11/10/23 Foot Left 11/10/23 1839 Foot 13 Psychosocial Within Defined Limits * Utilization Management - Johanne Cormier RN - 11/23/2023 4:39 PM CDT Per SEAM PRESSER no longer meets IP criteria, documentation in [...] with saline and left open to air. MD made aware and updated activity orders. Demetra [...] Toe Head to Toe Assessment Shift Summary [id number] Pt is a/o X4 and can make [...] mL (11/17/231999) Stool (unmeasured): 1 (per pt) (11/21/2345) Stool Amount: small (11/15/23 1700) Stool Color: [...] not present * Nursing Assessment - Damari Brower RN - 11/22/2023 6:58 AM CDT Nursing Assessment [...] voiding without difficulties. Follow established POC. Damari Brower RN, 11/22/2023 7:00 AM Neurologic/Cognitive Assessment Within [...] Stool Color: light brown (11/15/230) Stool Consistency: soft (11/15/231699) Liquid Stool (mL): [...] (per pt) (11/21/23 0745) Stool Amount: small (11/15/230) Stool Color: light brown (11/15/231699) Stool Consistency: [...] Limits * Nursing Assessment - Damari Brower, SABINE - 11/21/2023 5:21 AM CDT Nursing Assessment [...] reportedvoiding without difficulties. Follow established POC. Damari Brower RN, 11/21/2023 6:19 AM Neurologic/Cognitive Assessment Within [...] (11/15/23 1700) Stool Color: light brown (11/15/23 170) Stool Consistency: soft (11/15/231699) Liquid Stool (mL): [...] (11/15/23 1700) Stool Color: light brown (11/15/23 170) Stool Consistency: soft (11/15/231699) Liquid Stool (mL): [...] in length Anterior;Left Forearm 11/13/23 09 -- 7 Wound 11/10/23 Incision Perineum 11/10/23 [...] mL (11/17/231999) Stool (unmeasured): 1 (per patient) (11/19/23899) Stool Amount: small (11/15/231699) Stool Color: light [...] 6 Wound 11/10/23 Incision Perineum 11/10/231706 Perineum 9 Wound 11/10/23 Foot Left 11/10/23 [...] this shift. VSS on RA, neurosintact. Cami Vázquez, SABINE, 11/19/2023 11:24 AM Neurologic/Cognitive Assessment Within Defined Limits except for: Comments: Known cognitive deficits HEENT Assessment Within Defined Limits except for: Teeth Symptoms: Tooth/teeth missing Cardiac Within Defined Limits Respiratory Within defined limits Neurovascular Within Defined Limits Gastrointestinal Within Defined Limits Emesis: 0 mL (11/17/2023 8:00 PM) Stool/Urine (mL): 0 mL (11/17/231999) Stool (unmeasured): 1 (per patient) (11/19/23899) Stool Amount: small (11/15/231699) Stool Color: light [...] in length Anterior;Left Forearm 11/13/23 0929 -- 6 Wound 11/10/23 Incision Perineum 11/10/23 [...] Cardiac Assessment Within Defined Limits except for: Windows Administrator - remote telemetry Respiratory Within defined limits [...] patient has had with his girlfriend which wehave received this contestation through facility RN ' [...] Limits except for: Heart sounds: S1, S2 Windows Administrator - remote telemetry Comments: Consistently sustaining SBP above 180 - PRN Hydralazine administered x1 and notified, new PRN HTN meds added to JUL. Pt. also endorsed experiencing dizziness when ambulating. [...] Toe Head to Toe Assessment Shift Summary [id number] Pt is a/o X4 and can make [...] Cardiac Assessment Within Defined Limits except for: Windows Administrator - remote telemetry Respiratory Within defined limits [...] Palomo DPM - 11/17/2023 9:26 AM CDT [facility] Immediate Post Operative Note Note written: Day [...] Patient to the OR at 0800. 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 Pt had left the room prior to [facility] notifying this blurb writer of BP of 222/101. Vitals: 11/17/23 [...] -- 3 Wound 11/10/23 Incision Perineum 11/10/23 170 Perineum 6 Wound 11/10/23 Foot Left 11/10/23 [...] -- 3 Wound 11/10/23 Incision Perineum 11/10/23 170 Perineum 6 Wound 11/10/23 Foot Left 11/10/23 [...] wants to go outside to smoke, and blurb writer encouraged the patient not to go [...] Cardiac Assessment Within Defined Limits except for: Windows Administrator - remote telemetry Respiratory Assessment Within Defined [...] Cardiac Assessment Within Defined Limits except for: Windows Administrator - remote telemetry Respiratory Assessment Within Defined Limits except for: Comments: 2L O2 via N/C Neurovascular Assessment Within Defined Limits except for: Neurovascular LUE Temperature: Cool Neurovascular RUE Temperature: Cool Neurovascular LLE Sensation: Sensation decreased Neurovascular RLE Sensation: Sensation decreased Gastrointestinal Within Defined Limits Stool (unmeasured): 1 (11/15/23446) Stool Amount: moderate (11/15/237) Stool Color: brown (11/15/237) Stool Consistency: soft (11/15/23446) Genitourinary Assessment Within [...] Defined Limits except for: Chest Pain: No Windows Administrator - remote telemetry Pacemaker: Pacemaker: No Respiratory Assessment Within Defined Limits except for: Respiratory Assessment: Respirations: Pattern irregular Comments: Snoring while sleeping Neurovascular Within Defined Limits Gastrointestinal Assessment Within Defined Limits except for: Abdominal appearance: Obese Stool (unmeasured): 1 (11/14/23 09) Stool Amount: large (11/14/23 09) Stool Color: brown (11/14/23 09) Stool Consistency: loose (11/14/23 09) Genitourinary Assessment Within Defined Limits except for: [...] Cardiac Assessment Within Defined Limits except for: Windows Administrator - remote telemetry Comments: NSR Respiratory Within [...] Cardiac Assessment Within Defined Limits except for: Windows Administrator - remote telemetry Respiratory Assessment Within Defined Limits except for: Comments: 2L O2 via N/C Neurovascular Assessment Within Defined Limits except for: Neurovascular LUE Temperature: Cool Neurovascular RUE Temperature: Cool Neurovascular LLE Sensation: Sensation decreased Neurovascular RLE Sensation: Sensation decreased Gastrointestinal Within Defined Limits Stool (unmeasured): 1 (11/13/23 1430) Stool Amount: moderate (11/14/23 06) Stool Color: brown (11/14/23 06) Stool Consistency: loose (11/14/23 06) Genitourinary Assessment [...] shift. Paged team. PRN Hydralazine given per JUL. Pt this AM is alert and orientated x4. Will continue to monitor. Ingrid Angulo RN, 11/14/2023 8:09 AM Cognitive: Assessment Within Defined Limits except for: Neurologic/Cognitive Assessment: Level of Consciousness: Lethargic and obtunded HEENT: Assessment Within Defined Limits except for: Cardiac: Assessment Within Defined Limits except for: Windows Administrator - remote telemetry Respiratory: Assessment Within Defined [...] Note - PGY-1 Matt Low 43 y.o. 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 Theresa Romero RN, 11/12/2023 7:38 PM Neurologic/Cognitive Assessment Within Defined Limits except for: Cognition: poor judgement/safety awareness and poor attention/concentration Level of Consciousness: Obtunded, lethargic and confused Arousal Level: Arouses to voice and arouses to touch/gentle shaking Orientation: disoriented to time Speech: Illogical Mood/Behavior: Impulsive Frequent Neuro Assessments have been documented in the flowsheets HEENT Within Defined Limits Cardiac Assessment Within Defined Limits except for: Windows Administrator - remote telemetry Respiratory Assessment Within Defined [...] Cardiac Assessment Within Defined Limits except for: Windows Administrator - remote telemetry Respiratory Assessment Within Defined [...] Defined Limits * Interval Note Provider - PraveenaAlexandra Payan MD - 11/11/2023 10:51 PM CDT Post-operative [...] Cardiac Assessment Within Defined Limits except for: Windows Administrator - remote telemetry Respiratory Assessment Within Defined [...] Nichols MD - 11/11/2023 3:13 PM CDT [facility] Immediate Post Operative Note Note written: Day [...] Osborn MD - 11/10/2023 5:07 PM CDT [facility] Immediate Post Operative Note Note written: Day [...] linezolid (ZYVOX) IVPB 600 mg Last given: 1552 Frequency: ONE TIME * Missing tourniquet times [...] TISSUE CULTURE:INCLUDES GRAM STAIN Zac Churchill MD 11/10/20231712 Complications: None Fermin Osborn MD 11/10/2023 18:04 * Utilization Management - Olga Galeas RN - 11/10/2023 3:53 PM CDT INITIAL REVIEW Admit: 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 2 days ago he noticed pain in his perineum, it has gotten worse over the past several days. His girlfriend urged him to go to the hospital today and the physicians at [place] were concerned for Demar'sgangrene and transferred him [...] and studies. ED Course as of 11/10/23 171WedNov 10, 2023 1445 Paged surgery 1450 CRP 30, procal 0.83, WBC 20 at [place]. We will draw an ESR and our [...] POC GLUCOSE Routine 11/11/2023 3:00 PM CDT POC GLUCOSE Routine 11/11/2023 2:12 PM CDT [...] POC GLUCOSE Routine 11/10/2023 4:28 PM CDT ED EKG (12-LEAD) Routine 11/10/2023 3:21 PM [...] POC Glucose 140(H) 70 - 100 mg/dL [facility] Blood 11/25/2023 6:03 AM CDT Jessica Grullon MD LABORATORY Performing Organization Address City/[facility] [address]/ZIP Co de Phone Number [facility] [address] [place] [address], [place] * (ABNORMAL) POC GLUCOSE (11/24/2023 8:47 PM CDT) POC Glucose 156(H) 70 - 100 mg/dL [facility] Blood 11/24/2023 8:47 PM CDT Jessica Grullon MD LABORATORY Performing Organization Address City/[facility] [address]/[facility] Co de Phone Number [facility] PO[facility] OF [facility] [address] [place] [address], [place] * (ABNORMAL) POC GLUCOSE (11/24/2023 4:56 PM CDT) POC Glucose 177(H) 70 - 100 mg/dL [facility] Blood 11/24/2023 4:56 PM CDT Jessica Grullon MD LABORATORY Performing Organization Address City/[facility] [address]/ZIP Co de Phone Number [facility] [address] [place] [address], [place] * (ABNORMAL) POC GLUCOSE (11/24/2023 11:22 AM CDT) POC Glucose 146(H) 70 - 100 mg/dL [facility] Blood 11/24/2023 11:2 2 AM CDT Jessica Grullon MD LABORATORY Performing Organization Address City/[facility] [address]/[facility] Co de Phone Number [facility] [address] [place] [address], [place] * (ABNORMAL) POC GLUCOSE (11/24/2023 6:03 AM CDT) POC Glucose 147(H) 70 - 100 mg/dL [facility] Blood 11/24/2023 6:03 AM CDT Jessica Grullon MD LABORATORY Performing Organization Address [facility] [address]/[facility] Co de Phone Number [facility] [address] [place] [address], [place] * (ABNORMAL) POC GLUCOSE (11/23/2023 7:52 PM CDT) POC Glucose 160(H) 70 - 100 mg/dL [facility] POINT [facility] Blood 11/23/2023 7:52 PM CDT Jessica Grullon MD LABORATORY Performing Organization Address City/[facility] [address]/[facility] Co de Phone Number [facility] POINT OF [facility] [address] [place] [address], [place] * (ABNORMAL) POC GLUCOSE (11/23/2023 4:18 PM CDT) POC Glucose 156(H) 70 - 100 mg/dL [facility] Blood 11/23/2023 4:18 PM CDT Jessica Grullon MD LABORATORY Performing Organization Address City/[facility] [address]/[facility] Co de Phone Number [facility] [address] [place] [address], * (ABNORMAL) POC GLUCOSE (11/23/2023 11:13 AM CDT) POC Glucose 182(H) 70 - 100 mg/dL [facility] Blood 11/23/2023 11:1 3 AM CDT Jessica Grullon MD LABORATORY Performing Organization Address City/[facility] [address]/ZIP Co de Phone Number [facility] [address] [place] [address], * (ABNORMAL) PANEL BASIC METABOLIC (BMP) (11/23/2023 8:31 AM CDT) Pathologist [facility] CO2 24 22 - 30 mmol/L [facility] Glucose 192(H) 70 - 100 mg/dL [facility] BUN 20 6 - 20 mg/dL [facility] Creatinine 1.96(H) 0.70 - 1.25 mg/dL [facility] Calcium 8.5(L) 8.6 - 10.0 mg/dL [facility] Sodium 137 135 - 148 mmol/L [facility] Potassium 5.1 3.5 - 5.3 mmol/L [facility] Chloride 103 92 - 108 mmol/L [facility] eGFR (2020 CKD-EPI) 42(L) >=60 ml/min/1.7 3m2 [facility] Comment: The estimated glomerular filtration rate (eGFR) was calculated using the CKD-EPI 2020 creatinine equation, which does not include race as a factor. This equation is validated in individuals 18 years of age and older, and eGFR is normalized to a body surface area of 1.73m^2. AnGap 10 8 - 16 mmol/L [facility] Blood 11/23/2023 8:31 AM CDT 11/23/2023 9:12 AM CDT Zac Churchill MD LABORATORY [facility] [address] [place] [address] * (ABNORMAL) CBC WITH PLATELET (11/23/2023 8:31 AM CDT) Pathologist [facility] WBC 13.36(H) 4.00 - 10.00 k/cmm [facility] RBC 3.57(L) 4.60 - 6.00 m/cmm [facility] Hgb 10.0(L) 13.1 - 17.5 g/dL [facility] Hematocrit 31.5(L) 40.0 - 51.0 % [facility] MCV 88.2 80.0 - 100.0 fL [facility] MCH 28.0 25.0 - 32.0 pg [facility] MCHC 31.7 31.0 - 36.0 g/dL [facility] RDW 14.4 11.5 - 14.5 % [facility] Plt 492(H) 150 - 400 k/cmm [facility] MPV 9.1 6.5 - 12.5 fL [facility] Blood 11/23/2023 8:31 AM CDT 11/23/2023 9:11 AM CDT Zac Churchill MD LABORATORY [facility] [place] [address] * (ABNORMAL) POC GLUCOSE (11/23/2023 6:43 AM CDT) [facility] POC Glucose 121(H) 70 - 100 mg/dL [facility] Blood 11/23/2023 6:43 AM CDT Jessica Grullon MD LABORATORY [facility] [address] [place] [address] * POC GLUCOSE (11/22/2023 8:28 PM CDT) [facility] POC Glucose 95 70 - 100 mg/dL [facility] Blood 11/22/2023 8:28 PM CDT Jessica Grullon MD LABORATORY [facility] [address] [place] [address], * (ABNORMAL) POC GLUCOSE (11/22/2023 4:10 PM CDT) POC Glucose 176(H) 70 - 100 mg/dL [facility] Blood 11/22/2023 4:10 PM CDT Jessica Grullon MD LABORATORY Performing Organization Address [facility] Co de Phone Number [facility] [address] [place] [address], * (ABNORMAL) POC GLUCOSE (11/22/2023 11:21 AM CDT) [facility] POC Glucose 201(H) 70 - 100 mg/dL [facility] Blood 11/22/2023 11:2 1 AM CDT Jessica Grullon MD LABORATORY Performing Organization Address [facility] de Phone Number [facility] [address] [place] [address], * (ABNORMAL) CYSTATIN C (11/22/2023 9:23 AM CDT) [facility] Cystatin C 1.43(H) 0.61 - 0.95 mg/L [facility] eGFR by Cystatin C 51(L) >=60 ml/min/1.7 3m2 [facility] Comment: Estimated GFR calculated using the CKD-EPI Cystatin C (2012) equation. Stage ? Description ?eGFR Range ??1.......Normal or increased eGFR.......90 or Greater ??2.......Mildly decreased eGFR..........60-89 ??3.......Moderately decreased eGFR......30-59 ??4.......Severely decreased eGFR........15-29 ??5.......Kidney Failure.................Less than 15 Blood 11/22/2023 9:23 AM CDT 11/22/2023 2:05 PM CDT Zac Churchill MD LABORATORY Performing Organization Address [facility] [address] [facility] Co de Phone Number [address] [address] * (ABNORMAL) PANEL BASIC METABOLIC (BMP) (11/22/2023 9:23 AM CDT) Sodium 136 135 - 148 mmol/L [facility] Potassium 5.1 3.5 - 5.3 mmol/L [facility] Chloride 102 92 - 108 mmol/L [facility] CO2 24 22 - 30 mmol/L [facility] AnGap 10 8 - 16 mmol/L [facility] Glucose 254(H) 70 - 100 mg/dL [facility] BUN 20 6 - 20 mg/dL [facility] Creatinine 2.00(H) 0.70 - 1.25 mg/dL [facility] Calcium 8.6 8.6 - 10.0 mg/dL [facility] eGFR (2020 CKD-EPI) 41(L) >=60 ml/min/1.7 3m2 [facility] Comment: The estimated glomerular [...] Zac Churchill MD LABORATORY Performing Organization Address [facility] Co de Phone Number [address] [phone] * (ABNORMAL) CBC WITH PLATELET (11/22/2023 9:23 AM CDT) WBC 12.35(H) 4.00 - 10.00 k/cmm [facility] RBC 3.47(L) 4.60 - 6.00 m/cmm [facility] Hgb 9.8(L) 13.1 - 17.5 g/dL [facility] Hematocrit 30.8(L) 40.0 - 51.0 % [facility] MCV 88.8 80.0 - 100.0 fL [facility] MCH 28.2 25.0 - 32.0 pg [facility] MCHC 31.8 31.0 - 36.0 g/dL [facility] RDW 14.5 11.5 - 14.5 % [facility] Plt 530(H) 150 - 400 k/cmm [facility] MPV 9.3 6.5 - 12.5 fL [facility] Blood 11/22/2023 9:23 AM CDT 11/22/2023 10:28 AM CDT Zac Churchill MD LABORATORY Performing Organization Address City/[facility] [address]/ZIP Co de Phone Number [facility] [place] [address] * (ABNORMAL) POC GLUCOSE (11/22/2023 6:55 AM CDT) POC Glucose 136(H) 70 - 100 mg/dL [facility] Blood 11/22/2023 6:55 AM CDT Jessica Grullon MD LABORATORY Performing Organization Address City/[facility] [address]/[facility] Co de Phone Number [facility] [address] [place] [address] * (ABNORMAL) POC GLUCOSE (11/21/2023 8:38 PM CDT) POC Glucose 139(H) 70 - 100 mg/dL [facility] Blood 11/21/2023 8:38 PM CDT Jessica Grullon MD LABORATORY Performing Organization Address City/[facility] [address]/ZIP Co de Phone Number [facility] [address] [place] [address] [place] [address], [place] * (ABNORMAL) POC GLUCOSE (11/21/2023 4:13 PM CDT) POC Glucose 141(H) 70 - 100 mg/dL [facility] Blood 11/21/2023 4:13 PM CDT Jessica Grullon MD LABORATORY Performing Organization Address City/[facility] [address]/[facility] Co de Phone Number [facility] [address] [place] [address], [place] * (ABNORMAL) POC GLUCOSE (11/21/2023 11:12 AM CDT) POC Glucose 177(H) 70 - 100 mg/dL [facility] Blood 11/21/2023 11:1 2 AM CDT Jessica Grullon MD LABORATORY Performing Organization Address City/[facility] [address]/[facility] Co de Phone Number [facility] [address] [place] [address], [place] * (ABNORMAL) POC GLUCOSE (11/21/2023 6:08 AM CDT) Pathologist [facility] POC Glucose 131(H) 70 - 100 mg/dL [facility] Blood 11/21/2023 6:08 AM CDT Jessica Grullon MD LABORATORY Performing Organization Address City/[facility] [address]/[facility] Co de Phone Number [facility]ARE [address] [place] [phone], [place] * (ABNORMAL) PANEL BASIC METABOLIC (BMP) (11/21/2023 4:52 AM CDT) CO2 27 22 - 30 mmol/L [facility] Glucose 128(H) 70 - 100 mg/dL [facility] BUN 21(H) 6 - 20 mg/dL [facility] Creatinine 2.07(H) 0.70 - 1.25 mg/dL [facility] Calcium 8.4(L) 8.6 - 10.0 mg/dL [facility] Sodium 138 135 - 148 mmol/L [facility] Potassium 4.8 3.5 - 5.3 mmol/L [facility] Chloride 103 92 - 108 mmol/L [facility] eGFR (2020 CKD-EPI) 40(L) >=60 ml/min/1.7 3m2 [facility] Comment: The estimated glomerular filtration rate (eGFR) was calculated using the CKD-EPI 2020 creatinine equation, which does not include race as a factor. This equation is validated in individuals 18 years of age and older, and eGFR is normalized to a body surface area of 1.73m^2. AnGap 8 8 - 16 mmol/L [facility] Blood 11/21/2023 4:52 AM CDT 11/21/2023 5:27 AM CDT Zac Churchill MD LABORATORY [facility] [address] [address] * (ABNORMAL) CBC WITH PLATELET (11/21/2023 4:52 AM CDT) WBC 11.48(H) 4.00 - 10.00 k/cmm [facility] RBC 3.21(L) 4.60 - 6.00 m/cmm [facility] Hgb 9.0(L) 13.1 - 17.5 g/dL [facility] Hematocrit 28.7(L) 40.0 - 51.0 % [facility] MCV 89.4 80.0 - 100.0 fL [facility] MCH 28.0 25.0 - 32.0 pg [facility] MCHC 31.4 31.0 - 36.0 g/dL [facility] RDW 14.6(H) 11.5 - 14.5 % [facility] Plt 510(H) 150 - 400 k/cmm [facility] MPV 9.1 6.5 - 12.5 fL [facility] Blood 11/21/2023 4:52 AM CDT 11/21/2023 5:27 AM CDT Zac Churchill MD LABORATORY [facility] [address] [place] [address] * (ABNORMAL) POC GLUCOSE (11/20/2023 9:13 PM CDT) POC Glucose 153(H) 70 - 100 mg/dL [facility] Blood 11/20/2023 9:13 PM CDT Jessica Grullon MD LABORATORY [facility] [address] [place] [address], * (ABNORMAL) POC GLUCOSE (11/20/2023 3:52 PM CDT) POC Glucose 129(H) 70 - 100 mg/dL [facility] Blood 11/20/2023 3:52 PM CDT Jessica Grullon MD LABORATORY Performing Organization Address City/[facility] [address]/ZIP Co de Phone Number [facility] PO[facility] OF [address] [address], [place] * (ABNORMAL) POC GLUCOSE (11/20/2023 11:16 AM CDT) POC Glucose 165(H) 70 - 100 mg/dL [facility] Blood 11/20/2023 11:1 6 AM CDT Jessica Grullon MD LABORATORY [facility] [address] [place] [phone], [place] * (ABNORMAL) PANEL BASIC METABOLIC (BMP) (11/20/2023 8:18 AM CDT) Sodium 140 135 - 148 mmol/L [facility] Potassium 4.9 3.5 - 5.3 mmol/L [facility] Chloride 105 92 - 108 mmol/L [facility] CO2 26 22 - 30 mmol/L [facility] AnGap 9 8 - 16 mmol/L [facility] Glucose 147(H) 70 - 100 mg/dL [facility] BUN 21(H) 6 - 20 mg/dL [facility] Creatinine 2.02(H) 0.70 - 1.25 mg/dL [facility] Calcium 8.4(L) 8.6 - 10.0 mg/dL [facility] eGFR (2020 CKD-EPI) 41(L) >=60 ml/min/1.7 3m2 [facility] Comment: The estimated glomerular filtration rate (eGFR) was calculated using the CKD-EPI 2020 creatinine equation, which does not include race as a factor. This equation is validated in individuals 18 years of age and older, and eGFR is normalized to a body surface area of 1.73m^2. Blood 11/20/2023 8:18 AM CDT 11/20/2023 8:40 AM CDT 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 APRN, CNP LABORATORY [facility] [address] [address] * (ABNORMAL) CBC WITH PLTS/AUTO DIFF (11/20/2023 8:18 AM CDT) WBC 10.90(H) 4.00 - 10.00 k/cmm [facility] RBC 3.17(L) 4.60 - 6.00 m/cmm [facility] Hgb 9.0(L) 13.1 - 17.5 g/dL [facility] Hematocrit 28.3(L) 40.0 - 51.0 % [facility] MCV 89.3 80.0 - 100.0 fL [facility] MCH 28.4 25.0 - 32.0 pg [facility] MCHC 31.8 31.0 - 36.0 g/dL [facility] RDW 14.3 11.5 - 14.5 % [facility] Plt 492(H) 150 - 400 k/cmm [facility] MPV 9.2 6.5 - 12.5 fL [facility] Automated Abs Neutrophil 6.51(H) 1.70 - 6.50 k/cmm [facility] Comment:Preliminary ANC, Fin al Result to Follow Abs Immature Granulocyte 0.57(H) 0.00 - 0.09 k/cmm [facility] Comment:The Immature Granulo cyte Absolute count contains metamyelocytes and myelocytes. Abs Neutrophil 6.51(H) 1.70 - 6.50 k/cmm [facility] Abs Lymphocyte 2.07 0.80 - 4.00 k/cmm [facility] Abs Monocyte 1.27(H) 0.20 - 1.00 k/cmm [facility] Abs Eosinophil 0.45 0.00 - 0.60 k/cmm [facility] Abs Basophil 0.03 0.00 - 0.20 k/cmm [facility] Blood 11/20/2023 8:18 AM CDT 11/20/2023 8:40 AM CDT 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 APRN, CNP LABORATORY Performing Organization Address City/[facility] [address]/ZIP Co de Phone Number [facility] [place] [address] * (ABNORMAL) POC GLUCOSE (11/20/2023 8:08 AM CDT) POC Glucose 133(H) 70 - 100 mg/dL [facility] Blood 11/20/2023 8:08 AM CDT Jessica Grullon MD LABORATORY Performing Organization Address City/[facility] [address]/ZIP Co de Phone Number [facility] [address] [place] [address] * (ABNORMAL) POC GLUCOSE (11/20/2023 6:30 AM CDT) POC Glucose 153(H) 70 - 100 mg/dL [facility] Blood 11/20/2023 6:30 AM CDT Jessica Grullon MD LABORATORY [facility] [address] [place] [address], [place] * (ABNORMAL) POC GLUCOSE (11/19/2023 9:03 PM CDT) POC Glucose 148(H) 70 - 100 mg/dL [facility] Blood 11/19/2023 9:03 PM CDT Jessica Grullon MD LABORATORY Performing Organization Address City/[facility] [address]/[facility] Co de Phone Number [facility] [address] [place] [address], [place] * (ABNORMAL) POC GLUCOSE (11/19/2023 3:55 PM CDT) POC Glucose 126(H) 70 - 100 mg/dL [facility] Blood 11/19/2023 3:55 PM CDT Jessica Grullon MD LABORATORY Performing Organization Address City/[facility] [address]/[facility] Co de Phone Number [facility] [address] [place] [address], [place] * (ABNORMAL) POC GLUCOSE (11/19/2023 12:03 PM CDT) POC Glucose 147(H) 70 - 100 mg/dL [facility] Blood 11/19/2023 12:0 3 PM CDT Jessica Grullon MD LABORATORY Performing Organization Address City/[facility] [address]/[facility] Co de Phone Number [facility] [address] [place] [address], [place] * (ABNORMAL) POC GLUCOSE (11/19/2023 11:07 AM CDT) POC Glucose 159(H) 70 - 100 mg/dL [facility] Blood 11/19/2023 11:0 7 AM CDT Jessica Grullon MD LABORATORY Performing Organization Address City/[facility] [address]/ZIP Co de Phone Number [facility] [address] [place] [address], * (ABNORMAL) POC GLUCOSE (11/19/2023 8:51 AM CDT) POC Glucose 185(H) 70 - 100 mg/dL [facility] Blood 11/19/2023 8:51 AM CDT Jessica Grullon MD LABORATORY Performing Organization Address [facility] [address]/[facility] Co de Phone Number [facility] [address] [place] [address], [place] * (ABNORMAL) PANEL BASIC METABOLIC (BMP) (11/19/2023 7:58 AM CDT) Pathologist [facility] CO2 24 22 - 30 mmol/L [facility] Glucose 221(H) 70 - 100 mg/dL [facility] BUN 25(H) 6 - 20 mg/dL [facility] Creatinine 2.19(H) 0.70 - 1.25 mg/dL [facility] Calcium 7.8(L) 8.6 - 10.0 mg/dL [facility] Sodium 138 135 - 148 mmol/L [facility] Potassium 4.7 3.5 - 5.3 mmol/L [facility] Chloride 104 92 - 108 mmol/L [facility] eGFR (2020 CKD-EPI) 37(L) >=60 ml/min/1.7 3m2 [facility] Comment: The estimated glomerular filtration rate (eGFR) was calculated using the CKD-EPI 2020 creatinine equation, which does not include race as a factor. This equation is validated in individuals 18 years of age and older, and eGFR is normalized to a body surface area of 1.73m^2. AnGap 10 8 - 16 mmol/L [facility] Blood 11/19/2023 7:58 AM CDT 11/19/2023 8:34 AM CDT 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 APRN, CNP LABORATORY Performing Organization Address City/[facility] [address]/ZIP Co de Phone Number [facility] [address] [address] * (ABNORMAL) CBC WITH PLTS/AUTO DIFF (11/19/2023 7:58 AM CDT) WBC 10.66(H) 4.00 - 10.00 k/cmm [facility] RBC 3.14(L) 4.60 - 6.00 m/cmm [facility] Hgb 9.0(L) 13.1 - 17.5 g/dL [facility] Hematocrit 27.7(L) 40.0 - 51.0 % [facility] MCV 88.2 80.0 - 100.0 fL [facility] MCH 28.7 25.0 - 32.0 pg [facility] MCHC 32.5 31.0 - 36.0 g/dL [facility] RDW 14.3 11.5 - 14.5 % [facility] Plt 482(H) 150 - 400 k/cmm [facility] MPV 9.2 6.5 - 12.5 fL [facility] Automated Abs Neutrophil 6.41 1.70 - 6.50 k/cmm [facility] Comment:Preliminary ANC, Fin al Result to Follow Polychromasia Slight [facility] Abs Neutrophil 8.10(H) 1.70 - 6.50 k/cmm [facility] Abs Lymphocyte 1.07 0.80 - 4.00 k/cmm [facility] Abs Monocyte 0.85 0.20 - 1.00 k/cmm [facility] Abs Eosinophil 0.32 0.00 - 0.60 k/cmm [facility] Abs Basophil 0.11 0.00 - 0.20 k/cmm [facility] Abs Myelocyte 0.21(H) 0.00 - 0.00 k/cmm [facility] Blood 11/19/2023 7:58 AM CDT 11/19/2023 8:34 AM CDT 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 APRN, CNP LABORATORY [facility] [address] [place] [address] * (ABNORMAL) POC GLUCOSE (11/19/2023 6:37 AM CDT) POC Glucose 212(H) 70 - 100 mg/dL [facility] Blood 11/19/2023 6:37 AM CDT Jessica Grullon MD LABORATORY [facility] [address] [place] [address], [place] * POC GLUCOSE (11/18/2023 8:54 PM CDT) POC Glucose 99 70 - 100 mg/dL [facility] Blood 11/18/2023 8:54 PM CDT Jessica Grullon MD LABORATORY Performing Organization Address City/[facility] [address]/ZIP Co de Phone Number [facility] [address] [place] [address], [place] * (ABNORMAL) POC GLUCOSE (11/18/2023 8:20 PM CDT) POC Glucose 69(L) 70 - 100 mg/dL [facility] Blood 11/18/2023 8:20 PM CDT Jessica Grullon MD LABORATORY Performing Organization Address City/[facility] [address]/ZIP Co de Phone Number [facility] [address] [place] [address], [place] * (ABNORMAL) POC GLUCOSE (11/18/2023 4:37 PM CDT) POC Glucose 154(H) 70 - 100 mg/dL [facility] Blood 11/18/2023 4:37 PM CDT Jessica Grullon MD LABORATORY Performing Organization Address City/[facility] [address]/ZIP Co de Phone Number [facility] [address] [place] [address], [place] * (ABNORMAL) POC GLUCOSE (11/18/2023 11:03 AM CDT) POC Glucose 158(H) 70 - 100 mg/dL [facility] Blood 11/18/2023 11:0 3 AM CDT Jessica Grullon MD LABORATORY Performing Organization Address City/[facility] [address]/ZIP Co de Phone Number [facility] [address] [place] [phone], * (ABNORMAL) PANEL BASIC METABOLIC (BMP) (11/18/2023 9:02 AM CDT) CO2 24 22 - 30 mmol/L [facility] Glucose 180(H) 70 - 100 mg/dL [facility] BUN 27(H) 6 - 20 mg/dL [facility] Creatinine 2.17(H) 0.70 - 1.25 mg/dL [facility] Calcium 8.2(L) 8.6 - 10.0 mg/dL [facility] Sodium 137 135 - 148 mmol/L [facility] Potassium 4.5 3.5 - 5.3 mmol/L [facility] Chloride 104 92 - 108 mmol/L [facility] eGFR (2020 CKD-EPI) 37(L) >=60 ml/min/1.7 3m2 [facility] Comment: The estimated glomerular filtration rate (eGFR) was calculated using the CKD-EPI 2020 creatinine equation, which does not include race as a factor. This equation is validated in individuals 18 years of age and older, and eGFR is normalized to a body surface area of 1.73m^2. AnGap 9 8 - 16 mmol/L [facility] Blood 11/18/2023 9:02 AM CDT 11/18/2023 9:21 AM CDT 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 APRN, CNP LABORATORY [facility] [address] [place] [phone] * (ABNORMAL) CBC WITH PLTS/AUTO DIFF (11/18/2023 9:02 AM CDT) Pathologist [facility] WBC 10.61(H) 4.00 - 10.00 k/cmm [facility] RBC 3.36(L) 4.60 - 6.00 m/cmm [facility] Hgb 9.4(L) 13.1 - 17.5 g/dL [facility] Hematocrit 29.5(L) 40.0 - 51.0 % [facility] MCV 87.8 80.0 - 100.0 fL [facility] MCH 28.0 25.0 - 32.0 pg [facility] MCHC 31.9 31.0 - 36.0 g/dL [facility] RDW 14.2 11.5 - 14.5 % [facility] Plt 495(H) 150 - 400 k/cmm [facility] MPV 9.2 6.5 - 12.5 fL [facility] Automated Abs Neutrophil 6.34 1.70 - 6.50 k/cmm [facility] Comment:Preliminary ANC, Fin al Result to Follow NUC RBC 1.0(H) 0.0 - 0.0 /100WBC [facility] Polychromasia Slight [facility] Abs Neutrophil 7.32(H) 1.70 - 6.50 k/cmm [facility] Abs Lymphocyte 2.23 0.80 - 4.00 k/cmm [facility] Abs Monocyte 0.85 0.20 - 1.00 k/cmm [facility] Abs Eosinophil 0.21 0.00 - 0.60 k/cmm [facility] Blood 11/18/2023 9:02 AM CDT 11/18/2023 9:21 AM CDT 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 APRN, CNP LABORATORY [facility] [address] [address] * (ABNORMAL) POC GLUCOSE (11/18/2023 6:21 AM CDT) Pathologist [facility] POC Glucose 194(H) 70 - 100 mg/dL [facility] Blood 11/18/2023 6:21 AM CDT Jessica Grullon MD LABORATORY Performing Organization Address City/[facility] [address]/ZIP Co de Phone Number [facility] [address] [place] [address], * (ABNORMAL) POC GLUCOSE (11/17/2023 8:19 PM CDT) Pathologist [facility] POC Glucose 143(H) 70 - 100 mg/dL [facility] Blood 11/17/2023 8:19 PM CDT Jessica Grullon MD LABORATORY Performing Organization Address [facility] [address]/[facility] Co de Phone Number [facility] [address] [place] [address], [place] * (ABNORMAL) POC GLUCOSE (11/17/2023 4:40 PM CDT) [facility] POC Glucose 235(H) 70 - 100 mg/dL [facility] Blood 11/17/2023 4:40 PM CDT Jessica Grullon MD LABORATORY Performing Organization Address [facility] [address]/[facility] Co de Phone Number [facility] [address] [place] [address], [place] * (ABNORMAL) CBC WITH PLTS/AUTO DIFF (11/17/2023 2:35 PM CDT) Pathologist [facility] WBC 11.70(H) 4.00 - 10.00 k/cmm [facility] RBC 3.37(L) 4.60 - 6.00 m/cmm [facility] Hgb 9.6(L) 13.1 - 17.5 g/dL [facility] Hematocrit 29.6(L) 40.0 - 51.0 % [facility] MCV 87.8 80.0 - 100.0 fL [facility] MCH 28.5 25.0 - 32.0 pg [facility] MCHC 32.4 31.0 - 36.0 g/dL [facility] RDW 14.2 11.5 - 14.5 % [facility] Plt 466(H) 150 - 400 k/cmm [facility] MPV 9.3 6.5 - 12.5 fL [facility] Automated Abs Neutrophil 7.44(H) 1.70 - 6.50 k/cmm [facility] Comment:Preliminary ANC, Fin al Result to Follow Abs Immature Granulocyte 0.52(H) 0.00 - 0.09 k/cmm [facility] Comment:The Immature Granulo cyte Absolute count contains metamyelocytes and myelocytes. Abs Neutrophil 7.44(H) 1.70 - 6.50 k/cmm [facility] Abs Lymphocyte 1.96 0.80 - 4.00 k/cmm [facility] Abs Monocyte 1.45(H) 0.20 - 1.00 k/cmm [facility] Abs Eosinophil 0.27 0.00 - 0.60 k/cmm [facility] Abs Basophil 0.06 0.00 - 0.20 k/cmm [facility] Polychromasia Slight [facility] Blood 11/17/2023 2:35 PM CDT 11/17/2023 2:57 PM CDT Scar Leyva MD LABORATORY [facility] [address] [id number] * (ABNORMAL) PANEL BASIC METABOLIC (BMP) (11/17/2023 2:35 PM CDT) CO2 21(L) 22 - 30 mmol/L [facility] Glucose 252(H) 70 - 100 mg/dL [facility] BUN 30(H) 6 - 20 mg/dL [facility] Creatinine 2.27(H) 0.70 - 1.25 mg/dL [facility] Calcium 8.2(L) 8.6 - 10.0 mg/dL [facility] Sodium 137 135 - 148 mmol/L [facility] Potassium 4.3 3.5 - 5.3 mmol/L [facility] Chloride 104 92 - 108 mmol/L [facility] eGFR (2020 CKD-EPI) 35(L) >=60 ml/min/1.7 3m2 [facility] Comment: The estimated glomerular filtration rate (eGFR) was calculated using the CKD-EPI 2020 creatinine equation, which does not include race as a factor. This equation is validated in individuals 18 years of age and older, and eGFR is normalized to a body surface area of 1.73m^2. AnGap 12 8 - 16 mmol/L [facility] Blood 11/17/2023 2:35 PM CDT 11/17/2023 2:57 PM CDT Scar Leyva MD LABORATORY Performing Organization Address [facility] [address] [facility]/[place] [address] * ANTI XA ASSAY LMW HEPARIN (11/17/2023 11:47 AM CDT) Anti XA LMW <0.04 IU/mL [facility] Comment: Anti Xa Assay LMW Heparin Therapeutic Ranges: 0.4-1.1 IU/mL for twice daily 1.0-2.0 IU/mL for once daily Blood 11/17/2023 11:4 7 AM CDT 11/17/2023 12:01 PM CDT Zac Churchill MD LABORATORY Performing Organization Address [facility] [address] [facility] [place] [address] * (ABNORMAL) POC GLUCOSE (11/17/2023 11:25 AM CDT) POC Glucose 190(H) 70 - 100 mg/dL [facility] Blood 11/17/2023 11:2 5 AM CDT Jessica Grullon MD LABORATORY [facility] [address] [place] [address], * XR FOOT LEFT 3 V AP/OBL/LAT* [...] POC Glucose 176(H) 70 - 100 mg/dL [facility] Blood 11/17/2023 10:0 1 AM CDT Jessica Grullon MD LABORATORY Performing Organization Address City/State/[facility] Co de Phone Number [facility] [address] [place] [address], * (ABNORMAL) TISSUE CULTURE:INCLUDES GRAM STAIN (11/17/2023 9:35 AM CDT) Final Report Positive Culture Previous positive called. Rare METHICILLIN RESISTANT Staphylococcus aureus (MRSA) isolated. 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 One colony Staphylococcus lugdunensis isolated. (POS) [facility] Organism METHICILLIN RESISTANT STAPHYLOCOCCUS AUREUS (MRSA)(POS) [facility] Organism STAPHYLOCOCCUS LUGDUNENSIS(POS) [facility] Gram Stain Report Few WBC's seen. No organisms seen. Gram stain electronically reported to and acknowledged by: Che Palomo MD for Podiatric Surgery on 11/17/2023 11:56:22 by Silver Luna MLS [facility] Tissue TOE STRUCTURE / Unknown 11/17/2023 [...] JORDY <=10: Sensitive Staphylococcus lugdunensis Vancomycin VITEK JORYD <=0.5: Sensitive Che Paolmo DPM LAB MICROBIOLOGY [facility] [address] [place] [address] * FUNGUS CULTURE:INCLUDES SUHAS (11/17/2023 9:35 AM CDT) Final Report No fungus isolated. [facility] SUHAS Prep No fungal elements seen. [facility] Tissue TOE STRUCTURE / Unknown 11/17/2023 9:35 AM CDT Che Palomo DPM LAB MICROBIOLOGY Performing Organization Address [facility] [address]/[facility] Co de Phone Number [facility] [address] [address] * ANAEROBE CULTURE (11/17/2023 9:35 AM CDT) Final Report No anaerobes isolated. [facility] Tissue TOE STRUCTURE / Unknown 11/17/2023 9:35 AM CDT Che Jonbitt DP LAB MICROBIOLOGY Performing Organization Address [facility] Co de Phone Number [facility] [address] [address] * AFB CULTURE:INCLUDES AFB SMEAR (11/17/2023 9:35 AM CDT) Final Report No acid fast bacilli isolated. [facility] Acid Fast Stain No acid fast bacilli seen. [facility] Tissue TOE STRUCTURE / Unknown 11/17/2023 9:35 AM CDT Che Palomo DP LAB MICROBIOLOGY Performing Organization Address [facility] [address]/[facility] de Phone Number [facility] [address] [address] * M TUBERCULOSIS AMPLIFICATION (11/17/2023 9:32 AM CDT) Final Report M. tuberculosis complex DNA not detected. [facility] Tissue TOE STRUCTURE / Unknown 11/17/2023 9:32 AM CDT 11/18/2023 9:56 AM CDT Comment:1: Left hallux soft tissue dirty Narrative [facility] - 11/18/2023 2:41 PM CDT This assay uses PCR nucleic acid amplification to detect Mycobacterium tuberculosis complex DNA. ??This test was developed and its performance characteristics determined by [facility]. ??It has not been cleared or approved by the U.S. Food and Drug Administration. ??FDA does not require this test to go through premarket FDA review. ??This test is used for clinical purposes. ??It should not be regarded as investigational or for research. ??[facility] is certified under the Clinical Laboratory Improvement Amendments of 1988 (CLIA) as qualified to perform high complexity clinical laboratory testing. Che Palomo [facility] MICROBIOLOGY [facility] [address] [place] [address] * (ABNORMAL) TISSUE CULTURE:INCLUDES GRAM STAIN (11/17/2023 9:32 AM CDT) Final Report Positive Culture Rare METHICILLIN RESISTANT Staphylococcus aureus (MRSA) isolated. 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 Rare Group B beta hemolytic Streptococcus isolated. Pseudomonas aeruginosa isolated in broth only. Results electronically reported to and acknowledged by: Paula Vazquez MD, in Surgery [place], at ?? 11/23/2023 07:49:11 by Pam Alvarado MLS. (POS) [facility] Organism METHICILLIN RESISTANT STAPHYLOCOCCUS AUREUS (MRSA)(POS) [facility] Organism GROUP B BETA HEMOLYTIC STREPTOCOCCUS(POS) [facility] Organism PSEUDOMONAS AERUGINOSA(POS) [facility] Gram Stain Report Positive Gram stain Gram stain electronically reported to and acknowledged by: Che Zheng MD for Podiatric Surgery on 11/17/2023 11:55:10 by Silver Luna MLS Rare WBC's seen. Rare gram positive cocci clusters. (POS) [facility] Tissue TOE STRUCTURE / Unknown 11/17/2023 [...] aeruginosa Tobramycin VITEK JORDY <=1: Sensitive Che Jonbitt DPM LAB MICROBIOLOGY Performing Organization Address [facility] Co de Phone Number [facility] [address] [address] * FUNGUS CULTURE:INCLUDES SUHAS (11/17/2023 9:32 AM CDT) Final Report No fungus isolated. [facility] SUHAS Prep No fungal elements seen. [facility] Tissue TOE STRUCTURE / Unknown 11/17/2023 9:32 AM CDT Che PixelOpticst DPM LAB MICROBIOLOGY Performing Organization Address [facility] de Phone Number [facility] [address] [address] * (ABNORMAL) ANAEROBE CULTURE (11/17/2023 9:32 AM CDT) Final Report Positive Culture Rare Veillonella parvula group isolated. Rare Actinomyces europaeus isolated. (POS) [facility] Organism VEILLONELLA PARVULA GROUP(POS) [facility] Organism ACTINOMYCES EUROPAEUS(POS) [facility] Tissue TOE STRUCTURE / Unknown 11/17/2023 9:32 AM CDT Che L Beth DPM LAB MICROBIOLOGY Performing Organization Address [facility] Co de Phone Number [facility] [address] [address] * AFB CULTURE:INCLUDES AFB SMEAR (11/17/2023 9:32 AM CDT) Final Report No acid fast bacilli isolated. [facility] Acid Fast Stain No acid fast bacilli seen. [facility] Tissue TOE STRUCTURE / Unknown 11/17/2023 9:32 AM CDT Che Palomo [facility] MICROBIOLOGY [facility] [address] [place] [address] * SURGICAL PATHOLOGY (11/17/2023 9:31 AM CDT) SURG PATH FINAL ?Surgical Pathology Report Collection Date: ?11/17/2023 09:31 CDT ?Ordering Physician: ? CHE PALOMO Received Date: ?11/17/2023 09:49 CDT ?Accession Number: ? [id number] ? Surgical Pathology Final Report Specimen Type: [...] underlying soft tissue with moderate osseous softening. Sinter Press Operator sections are submitted on decalcification as follows: [...] Signed - Danielito Rodriguez M.D. Attending Pathologist. DDB/FRACISCO 11.17.2023 10:26 [facility] AP Specimen FOOT STRUCTURE / Unknown 11/17/2023 9:31 AM CDT Comment:OR: Routine gross an d microscopic examination Tissue: Left Hallux Site: left foot Additional clinical information: Che DOWNINGM LAB PATHOLOGY Performing Organization Address [facility] Co de Phone Number [facility] [place] [address] * (ABNORMAL) POC GLUCOSE (11/17/2023 9:14 AM CDT) POC Glucose 169(H) 70 - 100 mg/dL [facility] Blood 11/17/2023 9:14 AM CDT Jessica Grullon MD LABORATORY Performing Organization Address [facility] [address]/ZIP Co de Phone Number [facility] [address] [place] [address], * ULT ARTERIAL LOWER EXTREMITY LEFT (11/17/2023 [...] POC Glucose 205(H) 70 - 100 mg/dL [facility] Blood 11/17/2023 6:07 AM CDT Jessica Grullon MD LABORATORY Performing Organization Address City/[facility]/ZIP Co de Phone Number [facility] [address] [place] [address], [place] * (ABNORMAL) POC GLUCOSE (11/16/2023 8:46 PM CDT) POC Glucose 141(H) 70 - 100 mg/dL [facility] Blood 11/16/2023 8:46 PM CDT Jessica Grullon MD LABORATORY Performing Organization Address [facility] [address]/ZIP Co de Phone Number [facility] [address] [place] [address], [place] * XR FOOT LEFT 3 V [...] POC Glucose 148(H) 70 - 100 mg/dL [facility] Blood 11/16/2023 4:14 PM CDT Jessica Grullon MD LABORATORY Performing Organization Address City/State/[facility] Co de Phone Number [facility] [address] [place] [address], [place] * (ABNORMAL) POC GLUCOSE (11/16/2023 10:55 AM CDT) [facility] POC Glucose 203(H) 70 - 100 mg/dL [facility] Blood 11/16/2023 10:5 5 AM CDT Jessica Grullon MD LABORATORY Performing Organization Address [facility] [address]/[facility] Co de Phone Number [facility] [address] [place] [address], [place] * (ABNORMAL) CBC WITH PLATELET (11/16/2023 8:45 AM CDT) [facility] WBC 13.08(H) 4.00 - 10.00 k/cmm [facility] RBC 3.38(L) 4.60 - 6.00 m/cmm [facility] Hgb 9.6(L) 13.1 - 17.5 g/dL [facility] Hematocrit 28.9(L) 40.0 - 51.0 % [facility] MCV 85.5 80.0 - 100.0 fL [facility] MCH 28.4 25.0 - 32.0 pg [facility] MCHC 33.2 31.0 - 36.0 g/dL [facility] RDW 13.4 11.5 - 14.5 % [facility] Plt 475(H) 150 - 400 k/cmm [facility] MPV 9.5 6.5 - 12.5 fL [facility] Blood 11/16/2023 8:45 AM CDT 11/16/2023 8:58 AM CDT 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 APRN, CNP LABORATORY Performing Organization Address City/[facility] [address]/ZIP Co de Phone Number [facility] [address] [place] [address] * (ABNORMAL) PANEL BASIC METABOLIC (BMP) (11/16/2023 8:45 AM CDT) CO2 21(L) 22 - 30 mmol/L [facility] Glucose 261(H) 70 - 100 mg/dL [facility] BUN 35(H) 6 - 20 mg/dL [facility] Creatinine 2.67(H) 0.70 - 1.25 mg/dL [facility] Calcium 8.3(L) 8.6 - 10.0 mg/dL [facility] Sodium 139 135 - 148 mmol/L [facility] Potassium 4.4 3.5 - 5.3 mmol/L [facility] Chloride 106 92 - 108 mmol/L [facility] eGFR (2020 CKD-EPI) 29(L) >=60 ml/min/1.7 3m2 [facility] Comment: The estimated glomerular filtration rate (eGFR) was calculated using the CKD-EPI 2020 creatinine equation, which does not include race as a factor. This equation is validated in individuals 18 years of age and older, and eGFR is normalized to a body surface area of 1.73m^2. AnGap 12 8 - 16 mmol/L [facility] Blood 11/16/2023 8:45 AM CDT 11/16/2023 8:57 AM CDT 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 APRN, CNP LABORATORY [facility] [place] [address] * (ABNORMAL) POC GLUCOSE (11/16/2023 7:37 AM CDT) POC Glucose 180(H) 70 - 100 mg/dL [facility] Blood 11/16/2023 7:37 AM CDT Jessica Grullon MD LABORATORY [facility] [address] [place] [phone] [place] [address] * (ABNORMAL) POC GLUCOSE (11/15/2023 9:23 PM CDT) POC Glucose 144(H) 70 - 100 mg/dL [facility] Blood 11/15/2023 9:23 PM CDT Jessica Grullon MD LABORATORY Performing Organization Address [facility] Co de Phone Number [facility] [address] [place] [address], [place] * (ABNORMAL) POC GLUCOSE (11/15/2023 4:18 PM CDT) POC Glucose 159(H) 70 - 100 mg/dL [facility] POINT [facility] Blood 11/15/2023 4:18 PM CDT Jessica Grullon MD LABORATORY Performing Organization Address [facility] [address]/[facility] Co de Phone Number [facility] [address] [place] [address], [place] * (ABNORMAL) POC GLUCOSE (11/15/2023 11:19 AM CDT) POC Glucose 221(H) 70 - 100 mg/dL [facility] Blood 11/15/2023 11:1 9 AM CDT Jessica Grullon MD LABORATORY Performing Organization Address [facility] [address] [facility] Co de Phone Number [facility] [address] [place] [address], [place] * (ABNORMAL) PANEL BASIC METABOLIC (BMP) (11/15/2023 7:39 AM CDT) CO2 21(L) 22 - 30 mmol/L [facility] Glucose 176(H) 70 - 100 mg/dL [facility] BUN 38(H) 6 - 20 mg/dL [facility] Creatinine 2.86(H) 0.70 - 1.25 mg/dL [facility] Calcium 7.6(L) 8.6 - 10.0 mg/dL [facility] Sodium 136 135 - 148 mmol/L [facility] Potassium 4.2 3.5 - 5.3 mmol/L [facility] Chloride 102 92 - 108 mmol/L [facility] eGFR (2020 CKD-EPI) 27(L) >=60 ml/min/1.7 3m2 [facility] Comment: The estimated glomerular filtration rate (eGFR) was calculated using the CKD-EPI 2020 creatinine equation, which does not include race as a factor. This equation is validated in individuals 18 years of age and older, and eGFR is normalized to a body surface area of 1.73m^2. AnGap 13 8 - 16 mmol/L [facility] Blood 11/15/2023 7:39 AM CDT 11/15/2023 7:58 AM CDT Shani Shaw MD LABORATORY Performing Organization Address City/[facility] [address]/[facility] Co de Phone Number [address] [address] * (ABNORMAL) CREATININE, SERUM (11/15/2023 7:39 AM CDT) Creatinine 2.83(H) 0.70 - 1.25 mg/dL [facility] eGFR (2020 CKD-EPI) 27(L) >=60 ml/min/1.7 2 [facility] Comment: The estimated glomerular [...] Shani Shaw MD LABORATORY Performing Organization Address City/[facility] [address]/ZIP Co de Phone Number [facility] [address] [address] * HEPATITIS C ANTIBODY WITH CONDITIONAL PCR (11/15/2023 7:39 AM CDT) Hep C Lilly Nonreactive Nonreactive [facility] Comment:Performance characte ristics have not been established with this test on patients less than 10 years of age. Blood 11/15/2023 7:39 AM CDT 11/15/2023 7:58 AM CDT Zac Churchill MD LABORATORY [address] [address] * HIV COMBO (11/15/2023 7:39 AM CDT) HIV Antigen-Antibody Nonreactive Nonreactive [facility] Comment:Performance characte ristics have not been established with this test on patients less than 2 years of age. Blood 11/15/2023 7:39 AM CDT 11/15/2023 7:58 AM CDT Zac Churchill MD LABORATORY Performing Organization Address City/[facility] [address]/ZIP Co de Phone Number [address] [address] * (ABNORMAL) POC GLUCOSE (11/15/2023 6:16 AM CDT) Pathologist [facility] POC Glucose 154(H) 70 - 100 mg/dL [facility] Blood 11/15/2023 6:16 AM CDT Jessica Grullon MD LABORATORY Performing Organization Address City/[facility] [address]/ZIP Co de Phone Number [facility] POINT OF [place] [phone], * (ABNORMAL) POC GLUCOSE (11/14/2023 8:34 PM CDT) POC Glucose 159(H) 70 - 100 mg/dL [facility] Blood 11/14/2023 8:34 PM CDT Jessica Grullon MD LABORATORY [facility] [place] [phone], * (ABNORMAL) POC GLUCOSE (11/14/2023 4:36 PM CDT) Pathologist [facility] POC Glucose 182(H) 70 - 100 mg/dL [facility] Blood 11/14/2023 4:36 PM CDT Jessica Grullon MD LABORATORY [facility] [address] [place] [address], * (ABNORMAL) PROTEIN TO CREAT RATIO,URINE (11/14/2023 9:58 AM CDT) Pathologist [facility] TPU 22(H) 0 - 11 mg/dL [facility] Creat Urine 89 30 - 125 mg/dL [facility] Protein to Creat Ratio, Ur 0.25(H) 0.00 - 0.06 mg/mg [facility] Urine 11/14/2023 9:58 AM CDT 11/14/2023 10:06 AM CDT Zac Churchill MD LABORATORY [facility] [address] [place] [address] * (ABNORMAL) URINALYSIS,TOTAL (11/14/2023 9:58 AM CDT) Pathologist [facility] Color YELLOW YELLOW [facility] Appearance CLEAR CLEAR [facility] Urine Glucose 500(A) NEGATIVE mg/dL [facility] Bili UA NEGATIVE NEGATIVE [facility] Ketones NEGATIVE NEGATIVE [facility] Specific [place] 1.012 1.003 - 1.030 [facility] Blood Ur NEGATIVE Neg-Trace [facility] PH Urine 5.5 5.0 - 7.0 [facility] Protein Ur TRACE Neg-Trace [facility] Urobilinogen NORMAL NORMAL EU/dL [facility] Nitrite Ur NEGATIVE NEGATIVE [facility] Leuk Est NEGATIVE Neg-Trace [facility] WBC Ur 0-5 0 - 5 perHPF [facility] RBC Ur 0-3 0 - 3 perHPF [facility] Mucus 1+ perLPF [facility] Urinalysis Performed at: [facility] Urine 11/14/2023 9:58 AM CDT 11/14/2023 10:06 AM CDT Zac Churchill MD LABORATORY Performing Organization Address [facility] [address]/ZIP Co de Phone Number [facility] [place] [address] * (ABNORMAL) POC GLUCOSE (11/14/2023 6:14 AM CDT) Pathologist [facility] POC Glucose 171(H) 70 - 100 mg/dL [facility] Blood 11/14/2023 6:14 AM CDT Jessica Grullon MD LABORATORY Performing Organization Address [facility] [address]/[facility] Co de Phone Number [facility] PO[facility] OF CARE [address] [place] [address] * VANCOMYCIN LEVEL (11/14/2023 5:30 AM CDT) Pathologist [facility] Vancomycin 19.9 mcg/mL [facility] Comment:Expected Range (Trou gh): 10-20 mcg/ml Blood 11/14/2023 5:30 AM CDT 11/14/2023 5:56 AM CDT Zac Churchill MD LABORATORY Performing Organization Address [facility] [address]/[facility] Co de Phone Number [facility] [place] [place] [address] * (ABNORMAL) CYSTATIN C (11/14/2023 5:30 AM CDT) Cystatin C 1.78(H) 0.61 - 0.95 mg/L [facility] eGFR by Cystatin C 38(L) >=60 ml/min/1.7 3m2 [facility] Comment: Estimated GFR calculated using the CKD-EPI Cystatin C (2012) equation. Stage ? Description ?eGFR Range ??1.......Normal or increased eGFR.......90 or Greater ??2.......Mildly decreased eGFR..........60-89 ??3.......Moderately decreased eGFR......30-59 ??4.......Severely decreased eGFR........15-29 ??5.......Kidney Failure.................Less than 15 Blood 11/14/2023 5:30 AM CDT 11/14/2023 5:56 AM CDT Zac Churchill MD LABORATORY Performing Organization Address [facility] [address]/[facility] Co de Phone Number [facility] [place] [phone] * PHOSPHORUS (11/14/2023 5:30 AM CDT) Pathologist [facility] Phosphorus 4.3 2.5 - 4.5 mg/dL [facility] Blood 11/14/2023 5:30 AM CDT 11/14/2023 5:56 AM CDT Zac Churchill MD LABORATORY Performing Organization Address [facility] [address]/[facility] de Phone Number [facility] [place] [phone] * (ABNORMAL) PANEL BASIC METABOLIC (BMP) (11/14/2023 5:30 AM CDT) Sodium 136 135 - 148 mmol/L [facility] Potassium 4.1 3.5 - 5.3 mmol/L [facility] Chloride 103 92 - 108 mmol/L [facility] CO2 24 22 - 30 mmol/L [facility] AnGap 9 8 - 16 mmol/L [facility] Glucose 194(H) 70 - 100 mg/dL [facility] BUN 40(H) 6 - 20 mg/dL [facility] Creatinine 3.21(H) 0.70 - 1.25 mg/dL [facility] Calcium 8.2(L) 8.6 - 10.0 mg/dL [facility] eGFR (2020 CKD-EPI) 23(L) >=60 ml/min/1.7 3m2 [facility] Comment: The estimated glomerular [...] Zac Churchill MD LABORATORY Performing Organization Address [facility] [address]/[facility] de Phone Number [facility] [address] [address] * MAGNESIUM (11/14/2023 5:30 AM CDT) Magnesium 2.4 1.6 - 2.6 mg/dL [facility] Blood 11/14/2023 5:30 AM CDT 11/14/2023 5:56 AM CDT Zac Churchill MD LABORATORY Performing Organization Address [facility] de Phone Number [facility] [address] [address] * (ABNORMAL) CBC WITH PLATELET (11/14/2023 5:30 AM CDT) WBC 11.96(H) 4.00 - 10.00 k/cmm [facility] RBC 3.21(L) 4.60 - 6.00 m/cmm [facility] Hgb 9.1(L) 13.1 - 17.5 g/dL [facility] Hematocrit 28.5(L) 40.0 - 51.0 % [facility] MCV 88.8 80.0 - 100.0 fL [facility] MCH 28.3 25.0 - 32.0 pg [facility] MCHC 31.9 31.0 - 36.0 g/dL [facility] RDW 13.4 11.5 - 14.5 % [facility] Plt 372 150 - 400 k/cmm [facility] MPV 9.8 6.5 - 12.5 fL [facility] Blood 11/14/2023 5:30 AM CDT 11/14/2023 5:54 AM CDT Zac Churchill MD LABORATORY [facility] [address] [place] [phone] * (ABNORMAL) POC GLUCOSE (11/13/2023 9:00 PM CDT) POC Glucose 206(H) 70 - 100 mg/dL [facility] Blood 11/13/2023 9:00 PM CDT [place] [address], * (ABNORMAL) POC GLUCOSE (11/13/2023 4:44 PM CDT) POC Glucose 181(H) 70 - 100 mg/dL [facility] POINT OF CARE Blood 11/13/2023 4:44 PM CDT Jessica Grullon MD LABORATORY Performing Organization Address City/[facility] [address]/[facility] Co de Phone Number [facility] [place] [address], [place] * (ABNORMAL) POC GLUCOSE (11/13/2023 10:56 AM CDT) POC Glucose 170(H) 70 - 100 mg/dL [facility] Blood 11/13/2023 10:5 6 AM CDT Jessica Grullon MD LABORATORY Performing Organization Address City/[facility] [address]/ZIP Co de Phone Number [facility] POINT OF [facility] [address] [place] [phone], [place] * URINE CHLAMYDIA AND NEISSERIAE GONORRHOEAE AMPLIFICATION (11/13/2023 10:45 AM CDT) Chlamydia Amplification - Urine Negative Negative [facility] Comment:Test performed by tr anscription mediated amplification and is FDA approved for genital and urine specimens. N. Gonorrhea Amplification - Urine Negative Negative [facility] Comment:Test performed by tr anscription mediated amplification and is FDA approved for genital and urine specimens. Urine 11/13/2023 10:4 5 AM CDT 11/13/2023 3:03 PM CDT Narrative [facility] - 11/15/2023 12:29 PM CDT For Urines, use first void. Zac Churchill MD LABORATORY [facility] [address] [address] * HEPATITIS B SURFACE ANTIGEN (11/13/2023 10:20 AM CDT) Pathologist [facility] HBV Surface Ag Nonreactive Nonreactive [facility] Comment: Testing performed at: [address] [address] Blood 11/13/2023 10:2 0 AM CDT 11/13/2023 10:27 AM CDT Zac Churchill MD LABORATORY Performing Organization Address [facility] [address]/[facility] Co de Phone Number [address] [address] * HEPATITIS B SURFACE ANTIBODY (11/13/2023 10:20 AM CDT) Pathologist [facility] HBsAb Quant <3.31 mIU/ml [facility] Comment:The Hepatitis B Surf gabriella Antibody quantitation is less than 8.00 mIU/mL. There is no evidence of an antibody response to a hepatitis B vaccination or recovery from a hepatitis B infection. This patient is presumed non-immune to hepatitis B. HBsAb Interpretation Nonreactive [facility] Blood 11/13/2023 10:2 0 AM CDT 11/13/2023 10:27 AM CDT Zac Churchill MD LABORATORY Performing Organization Address [facility] [address]/[facility] Co de Phone Number [facility] [address] [address] * (ABNORMAL) POC GLUCOSE (11/13/2023 6:08 AM CDT) [facility] POC Glucose 154(H) 70 - 100 mg/dL [facility] Blood 11/13/2023 6:08 AM CDT Jessica Grullon MD LABORATORY [facility] POINT OF CARE [address] [place] [address] * (ABNORMAL) CYSTATIN C (11/13/2023 5:18 AM CDT) [facility] eGFR by Cystatin C 31(L) >=60 ml/min/1.7 3m2 [facility] Comment: Estimated GFR calculated using the CKD-EPI Cystatin C (2012) equation. Stage ? Description ?eGFR Range ??1.......Normal or increased eGFR.......90 or Greater ??2.......Mildly decreased eGFR..........60-89 ??3.......Moderately decreased eGFR......30-59 ??4.......Severely decreased eGFR........15-29 ??5.......Kidney Failure.................Less than 15 Cystatin C 2.11(H) 0.61 - 0.95 mg/L [facility] Blood 11/13/2023 5:18 AM CDT 11/13/2023 5:47 AM CDT Zac Churchill MD LABORATORY [facility] [address] [place] [phone] * VANCOMYCIN LEVEL (11/13/2023 5:18 AM CDT) [facility] Vancomycin 35.4 mcg/mL [facility] Comment:Expected Range (Trou gh): 10-20 mcg/ml Blood 11/13/2023 5:18 AM CDT 11/13/2023 5:47 AM CDT Zac Churchill MD LABORATORY Performing Organization Address [facility] [address]/[facility] Co de Phone Number [facility] [address] [address] * (ABNORMAL) PHOSPHORUS (11/13/2023 5:18 AM CDT) Phosphorus 5.2(H) 2.5 - 4.5 mg/dL [facility] Blood 11/13/2023 5:18 AM CDT 11/13/2023 5:47 AM CDT Zac Churchill MD LABORATORY Performing Organization Address [facility] [address]/[facility] de Phone Number [facility] [address] [address] * (ABNORMAL) PANEL BASIC METABOLIC (BMP) (11/13/2023 5:18 AM CDT) AnGap 12 8 - 16 mmol/L [facility] Sodium 137 135 - 148 mmol/L [facility] Chloride 103 92 - 108 mmol/L [facility] BUN 37(H) 6 - 20 mg/dL [facility] Calcium 7.8(L) 8.6 - 10.0 mg/dL [facility] CO2 22 22 - 30 mmol/L [facility] Glucose 168(H) 70 - 100 mg/dL [facility] Creatinine 3.04(H) 0.70 - 1.25 mg/dL [facility] Potassium 4.4 3.5 - 5.3 mmol/L [facility] eGFR (2020 CKD-EPI) 25(L) >=60 ml/min/1.7 3m2 [facility] Comment: The estimated glomerular [...] Zac Churchill MD LABORATORY Performing Organization Address City/[facility] [address]/[facility] Co de Phone Number [facility] [address] [address] * MAGNESIUM (11/13/2023 5:18 AM CDT) Magnesium 2.3 1.6 - 2.6 mg/dL [facility] Blood 11/13/2023 5:18 AM CDT 11/13/2023 5:47 AM CDT Zac Churchill MD LABORATORY Performing Organization Address [facility] [address]/[facility] Co de Phone Number [facility] [address] [address] * (ABNORMAL) CBC WITH PLATELET (11/13/2023 5:18 AM CDT) WBC 13.27(H) 4.00 - 10.00 k/cmm [facility] RBC 3.28(L) 4.60 - 6.00 m/cmm [facility] Hgb 9.2(L) 13.1 - 17.5 g/dL [facility] Hematocrit 30.0(L) 40.0 - 51.0 % [facility] MCV 91.5 80.0 - 100.0 fL [facility] MCH 28.0 25.0 - 32.0 pg [facility] MCHC 30.7(L) 31.0 - 36.0 g/dL [facility] RDW 13.5 11.5 - 14.5 % [facility] Plt 317 150 - 400 k/cmm [facility] MPV 10.1 6.5 - 12.5 fL [facility] Blood 11/13/2023 5:18 AM CDT 11/13/2023 5:47 AM CDT Zac Churchill MD LABORATORY Performing Organization Address City/[facility] [address]/[facility] Co de Phone Number [facility] [address] [address] * RPR SYPHILIS SCREEN (11/12/2023 11:10 PM CDT) RPR Screen Non-Reactive Non-Reacti ve [facility] RPR Titer Not Reflexed [facility] Blood 11/12/2023 11:1 0 PM CDT 11/12/2023 11:40 PM CDT Zac Churchill MD LABORATORY Performing Organization Address City/[facility] [address]/[facility] Co de Phone Number [facility] [address] [address] * (ABNORMAL) POC GLUCOSE (11/12/2023 8:47 PM CDT) POC Glucose 196(H) 70 - 100 mg/dL [facility] OF CARE Blood 11/12/2023 8:47 PM CDT Jessica Grullon MD LABORATORY Performing Organization Address City/[facility] [address]/[facility] Co de Phone Number [facility] POINT OF CARE [address] [place] [phone], * (ABNORMAL) POC GLUCOSE (11/12/2023 4:41 PM CDT) POC Glucose 172(H) 70 - 100 mg/dL [facility] Blood 11/12/2023 4:41 PM CDT Jessica Grullon MD LABORATORY Performing Organization Address City/[facility] [address]/[facility] Co de Phone Number [facility] POINT OF [address] [address], [place] * VANCOMYCIN LEVEL (11/12/2023 1:22 PM CDT) Vancomycin 47.5 mcg/mL [facility] Comment:Expected Range (Trou gh): 10-20 mcg/ml Blood 11/12/2023 1:22 PM CDT 11/12/2023 1:34 PM CDT Narrative [facility] - 11/12/2023 2:28 PM CDT Peak or trough:->Trough Zac Churchill MD LABORATORY Performing Organization Address [facility] [address]/[facility] Co de Phone Number [facility] [address] [address] * (ABNORMAL) CYSTATIN C (11/12/2023 11:36 AM CDT) Cystatin C 2.20(H) 0.61 - 0.95 mg/L [facility] eGFR by Cystatin C 29(L) >=60 ml/min/1.7 3m2 [facility] Comment: Estimated GFR calculated using the CKD-EPI Cystatin C (2012) equation. Stage ? Description ?eGFR Range ??1.......Normal or increased eGFR.......90 or Greater ??2.......Mildly decreased eGFR..........60-89 ??3.......Moderately decreased eGFR......30-59 ??4.......Severely decreased eGFR........15-29 ??5.......Kidney Failure.................Less than 15 Blood 11/12/2023 11:3 6 AM CDT 11/12/2023 2:53 PM CDT Zac Churchill MD LABORATORY [facility] [address] [address] * (ABNORMAL) PHOSPHORUS (11/12/2023 11:36 AM CDT) Phosphorus 5.8(H) 2.5 - 4.5 mg/dL [facility] Blood 11/12/2023 11:3 6 AM CDT 11/12/2023 11:49 AM CDT Zac Churchill MD LABORATORY Performing Organization Address [facility] [address]/[facility] Co de Phone Number [facility] [address] [address] * (ABNORMAL) PANEL BASIC METABOLIC (BMP) (11/12/2023 11:36 AM CDT) Sodium 137 135 - 148 mmol/L [facility] Potassium 4.9 3.5 - 5.3 mmol/L [facility] Chloride 104 92 - 108 mmol/L [facility] CO2 23 22 - 30 mmol/L [facility] AnGap 10 8 - 16 mmol/L [facility] Glucose 160(H) 70 - 100 mg/dL [facility] BUN 29(H) 6 - 20 mg/dL [facility] Creatinine 2.24(H) 0.70 - 1.25 mg/dL [facility] Calcium 7.8(L) 8.6 - 10.0 mg/dL [facility] eGFR (2020 CKD-EPI) 36(L) >=60 ml/min/1.7 3m2 [facility] Comment: The estimated glomerular filtration rate (eGFR) was calculated using the CKD-EPI 2020 creatinine equation, which does not include race as a factor. This equation is validated in individuals 18 years of age and older, and eGFR is normalized to a body surface area of 1.73m^2. Blood 11/12/2023 11:3 6 AM CDT 11/12/2023 11:49 AM CDT Zac Churchill MD LABORATORY Performing Organization Address [facility] [address]/[facility] Co de Phone Number [facility] [address] [address] * MAGNESIUM (11/12/2023 11:36 AM CDT) Magnesium 2.3 1.6 - 2.6 mg/dL [facility] Blood 11/12/2023 11:3 6 AM CDT 11/12/2023 11:49 AM CDT Zac Churchill MD LABORATORY Performing Organization Address [facility] [address]/[facility] Co de Phone Number [facility] [address] [address] * (ABNORMAL) CBC WITH PLATELET (11/12/2023 11:36 AM CDT) WBC 17.87(H) 4.00 - 10.00 k/cmm [facility] RBC 3.40(L) 4.60 - 6.00 m/cmm [facility] Hgb 9.6(L) 13.1 - 17.5 g/dL [facility] Hematocrit 31.1(L) 40.0 - 51.0 % [facility] MCV 91.5 80.0 - 100.0 fL [facility] MCH 28.2 25.0 - 32.0 pg [facility] MCHC 30.9(L) 31.0 - 36.0 g/dL [facility] RDW 13.6 11.5 - 14.5 % [facility] Plt 287 150 - 400 k/cmm [facility] MPV 10.5 6.5 - 12.5 fL [facility] Blood 11/12/2023 11:3 6 AM CDT 11/12/2023 11:48 AM CDT Zac Churchill MD LABORATORY [facility] [place] [address] * (ABNORMAL) POC GLUCOSE (11/12/2023 11:05 AM CDT) Pathologist [facility] POC Glucose 147(H) 70 - 100 mg/dL [facility] Blood 11/12/2023 11:0 5 AM CDT Jessica Grullon MD LABORATORY [facility] POINT OF CARE [address] [place] [address] * (ABNORMAL) POC GLUCOSE (11/12/2023 10:09 AM CDT) Pathologist [facility] POC Glucose 163(H) 70 - 100 mg/dL [facility] Blood 11/12/2023 10:0 9 AM CDT Jessica Grullon MD LABORATORY [facility] [address] [place] [phone], [place] * (ABNORMAL) POC GLUCOSE (11/12/2023 9:04 AM CDT) POC Glucose 146(H) 70 - 100 mg/dL [facility] POINT OF [facility] Blood 11/12/2023 9:04 AM CDT Jessica Grullon MD LABORATORY Performing Organization Address City/[facility] [address]/[facility] Co de Phone Number [facility] [address] [place] [phone], [place] * (ABNORMAL) POC GLUCOSE (11/12/2023 8:01 AM CDT) POC Glucose 152(H) 70 - 100 mg/dL [facility] Blood 11/12/2023 8:01 AM CDT Jessica Grullon MD LABORATORY Performing Organization Address City/[facility] [address]/[facility] Co de Phone Number [facility] [address] [place] [address], [place] * (ABNORMAL) POC GLUCOSE (11/12/2023 7:00 AM CDT) POC Glucose 147(H) 70 - 100 mg/dL [facility] POINT [facility] Blood 11/12/2023 7:00 AM CDT Jessica Grullon MD LABORATORY Performing Organization Address City/[facility] [address]/ZIP Co de Phone Number [facility] [address] [place] [phone], [place] * (ABNORMAL) POC GLUCOSE (11/12/2023 6:02 AM CDT) POC Glucose 169(H) 70 - 100 mg/dL [facility] Blood 11/12/2023 6:02 AM CDT Jessica Grullon MD LABORATORY [facility] POINT OF CARE [address] [place] [address], [place] * (ABNORMAL) POC GLUCOSE (11/12/2023 5:00 AM CDT) POC Glucose 166(H) 70 - 100 mg/dL [facility] Blood 11/12/2023 5:00 AM CDT Jessica Grullon MD LABORATORY Performing Organization Address City/[facility] [address]/[facility] Co de Phone Number [facility] POINT OF [facility] [address] [place] [address], [place] * (ABNORMAL) POC GLUCOSE (11/12/2023 4:02 AM CDT) POC Glucose 178(H) 70 - 100 mg/dL [facility]INT [facility]ARE Blood 11/12/2023 4:02 AM CDT Jessica Grullon MD LABORATORY Performing Organization Address City/[facility] [address]/ZIP Co de Phone Number [facility] POINT OF [facility] [address] [place] [address], [place] * (ABNORMAL) POC GLUCOSE (11/12/2023 3:17 AM CDT) POC Glucose 176(H) 70 - 100 mg/dL [facility] POINT OF CARE Blood 11/12/2023 3:17 AM CDT Jessica Grullon MD LABORATORY Performing Organization Address City/[facility] [address]/ZIP Co de Phone Number [facility] POINT OF CARE [address] [place] [address], [place] * (ABNORMAL) POC GLUCOSE (11/12/2023 2:14 AM CDT) POC Glucose 197(H) 70 - 100 mg/dL [facility] POINT OF CARE Blood 11/12/2023 2:14 AM CDT Jessica Grullon MD LABORATORY Performing Organization Address City/[facility] [address]/[facility] Co de Phone Number [facility] POINT OF CARE [address] [place] [address], [place] * (ABNORMAL) POC GLUCOSE (11/12/2023 1:02 AM CDT) POC Glucose 195(H) 70 - 100 mg/dL [facility] POINT OF [facility] Blood 11/12/2023 1:02 AM CDT Jessica Grullon MD LABORATORY Performing Organization Address City/[facility] [address]/[facility] Co de Phone Number [facility] [address] [place] [address], [place] * (ABNORMAL) POC GLUCOSE (11/12/2023 12:01 AM CDT) POC Glucose 180(H) 70 - 100 mg/dL [facility] POINT OF [facility] Blood 11/12/2023 12:0 1 AM CDT Jessica Grullon MD LABORATORY Performing Organization Address City/[facility] [address]/[facility] [facility] Co de Phone Number [facility] [address] [place] [address], [place] * (ABNORMAL) POC GLUCOSE (11/11/2023 11:01 PM CDT) POC Glucose 185(H) 70 - 100 mg/dL [facility] Blood 11/11/2023 11:0 1 PM CDT Jessica Grullon MD LABORATORY Performing Organization Address City/[facility] [address] [facility] Co de Phone Number [facility] [address] [place], [place] [id number], [place] * (ABNORMAL) POC GLUCOSE (11/11/2023 10:00 PM CDT) POC Glucose 167(H) 70 - 100 mg/dL [facility] Blood 11/11/2023 10:0 0 PM CDT Jessica Grullon MD LABORATORY Performing Organization Address City/[facility] [address]/[facility] Co de Phone Number [facility] [address] [place] [address], [place] * (ABNORMAL) POC GLUCOSE (11/11/2023 9:01 PM CDT) POC Glucose 148(H) 70 - 100 mg/dL [facility] Blood 11/11/2023 9:01 PM CDT Jessica Grullon MD LABORATORY Performing Organization Address City/[facility] [address]/[facility] Co de Phone Number [facility] [address] [place] [address], [place] * (ABNORMAL) POC GLUCOSE (11/11/2023 8:02 PM CDT) POC Glucose 167(H) 70 - 100 mg/dL [facility] Blood 11/11/2023 8:02 PM CDT Jessica Grullon MD LABORATORY Performing Organization Address City/[facility] [address]/[facility] Co de Phone Number [facility] [address] [place] [address], [place] * (ABNORMAL) POC GLUCOSE (11/11/2023 7:02 PM CDT) POC Glucose 180(H) 70 - 100 mg/dL [facility] Blood 11/11/2023 7:02 PM CDT Jessica Grullon MD LABORATORY Performing Organization Address City/[facility] [address]/ZIP Co de Phone Number [facility] [address] [place] [address], [place] * (ABNORMAL) PANEL BASIC METABOLIC (BMP) (11/11/2023 6:42 PM CDT) Sodium 138 135 - 148 mmol/L [facility] Potassium 4.3 3.5 - 5.3 mmol/L [facility] Chloride 103 92 - 108 mmol/L [facility] CO2 25 22 - 30 mmol/L [facility] AnGap 10 8 - 16 mmol/L [facility] Glucose 181(H) 70 - 100 mg/dL [facility] BUN 21(H) 6 - 20 mg/dL [facility] Creatinine 1.03 0.70 - 1.25 mg/dL [facility] Calcium 8.0(L) 8.6 - 10.0 mg/dL [facility] eGFR (2020 CKD-EPI) 91 >=60 ml/min/1.7 3m2 [facility] Comment: The estimated glomerular filtration rate (eGFR) was calculated using the CKD-EPI 2020 creatinine equation, which does not include race as a factor. This equation is validated in individuals 18 years of age and older, and eGFR is normalized to a body surface area of 1.73m^2. Blood 11/11/2023 6:42 PM CDT 11/11/2023 6:47 PM CDT Zac Churchill MD LABORATORY Performing Organization Address [facility] [address]/ZIP Co de Phone Number [facility] [place] [address] * (ABNORMAL) POC GLUCOSE (11/11/2023 6:05 PM CDT) POC Glucose 173(H) 70 - 100 mg/dL [facility] Blood 11/11/2023 6:05 PM CDT Jessica Grullon MD LABORATORY Performing Organization Address [facility] [address] [facility]/ZIP Co de Phone Number [facility] [address] [place] [address], [place] * (ABNORMAL) POC GLUCOSE (11/11/2023 5:01 PM CDT) POC Glucose 163(H) 70 - 100 mg/dL [facility] Blood 11/11/2023 5:01 PM CDT Jessica Grullon MD LABORATORY Performing Organization Address City/[facility] [address]/[facility] Co de Phone Number [facility] [address] [place] [address], [place] * (ABNORMAL) POC GLUCOSE (11/11/2023 3:47 PM CDT) POC Glucose 138(H) 70 - 100 mg/dL [facility] Blood 11/11/2023 3:47 PM CDT Jessica Grullon MD LABORATORY Performing Organization Address City/[facility] [address]/[facility] Co de Phone Number [facility] [address] [place] [address], [place] * (ABNORMAL) POC GLUCOSE (11/11/2023 3:00 PM CDT) POC Glucose 147(H) 70 - 100 mg/dL [facility] Blood 11/11/2023 3:00 PM CDT Jessica Grullon MD LABORATORY Performing Organization Address City/[facility] [address]/ZIP Co de Phone Number [facility] [address] [place] [address], [place] * (ABNORMAL) POC GLUCOSE (11/11/2023 2:12 PM CDT) POC Glucose 147(H) 70 - 100 mg/dL [facility] Blood 11/11/2023 2:12 PM CDT Jessica Grullon MD LABORATORY Performing Organization Address City/[facility] [address]/ZIP Co de Phone Number [facility] [address] [place] [address], [place] * (ABNORMAL) POC GLUCOSE (11/11/2023 1:02 PM CDT) POC Glucose 126(H) 70 - 100 mg/dL [facility] Blood 11/11/2023 1:02 PM CDT Jessica Grullon MD LABORATORY Performing Organization Address City/[facility] [address]/[facility] Co de Phone Number [facility] [address] [place] [address], [place] * (ABNORMAL) POC GLUCOSE (11/11/2023 12:01 PM CDT) POC Glucose 141(H) 70 - 100 mg/dL [facility] Blood 11/11/2023 12:0 1 PM CDT Jessica Grullon MD LABORATORY Performing Organization Address City/[facility] [address]/ZIP Co de Phone Number [facility] [address] [place] [address], [place] * (ABNORMAL) POC GLUCOSE (11/11/2023 11:03 AM CDT) POC Glucose 163(H) 70 - 100 mg/dL [facility] Blood 11/11/2023 11:0 3 AM CDT Jessica Grullon MD LABORATORY Performing Organization Address City/[facility] [address]/ZIP Co de Phone Number [facility] [address] [place] [address], [place] * (ABNORMAL) POC GLUCOSE (11/11/2023 9:59 AM CDT) POC Glucose 170(H) 70 - 100 mg/dL [facility] Blood 11/11/2023 9:59 AM CDT Jessica Grullon MD LABORATORY Performing Organization Address City/[facility] [address]/[facility] Co de Phone Number [facility] [address] [place] [address], * (ABNORMAL) POC GLUCOSE (11/11/2023 8:56 AM CDT) POC Glucose 166(H) 70 - 100 mg/dL [facility] Blood 11/11/2023 8:56 AM CDT Jessica Grullon MD LABORATORY Performing Organization Address [facility] Co de Phone Number [address] [address], [place] * (ABNORMAL) POC GLUCOSE (11/11/2023 8:01 AM CDT) POC Glucose 172(H) 70 - 100 mg/dL [facility] Blood 11/11/2023 8:01 AM CDT Jessica Grullon MD LABORATORY Performing Organization Address [facility] Co de Phone Number [address] [address], [place] * ICU PHOSPHORUS (11/11/2023 5:36 AM CDT) Phosphorus 2.9 2.5 - 4.5 mg/dL [facility] Blood 11/11/2023 5:36 AM CDT 11/11/2023 5:45 AM CDT Zac Churchill MD LABORATORY Performing Organization Address City/[facility] [address]/[facility] Co de Phone Number [facility] [address] [address] * (ABNORMAL) ICU MAGNESIUM (11/11/2023 5:36 AM CDT) Magnesium 1.2(L) 1.6 - 2.6 mg/dL [facility] Blood 11/11/2023 5:36 AM CDT 11/11/2023 5:45 AM CDT Zac Churchill MD LABORATORY Performing Organization Address City/[facility] [address]/ZIP Co de Phone Number [facility] [address] [address] * (ABNORMAL) ICU CBC WITH PLTS/AUTO DIFF (11/11/2023 5:36 AM CDT) WBC 17.41(H) 4.00 - 10.00 k/cmm [facility] RBC 2.72(L) 4.60 - 6.00 m/cmm [facility] Hgb 7.8(L) 13.1 - 17.5 g/dL [facility] Hematocrit 24.1(L) 40.0 - 51.0 % [facility] MCV 88.6 80.0 - 100.0 fL [facility] MCH 28.7 25.0 - 32.0 pg [facility] MCHC 32.4 31.0 - 36.0 g/dL [facility] RDW 13.2 11.5 - 14.5 % [facility] Plt 203 150 - 400 k/cmm [facility] MPV 10.1 6.5 - 12.5 fL [facility] Automated Abs Neutrophil 13.29(H) 1.70 - 6.50 k/cmm [facility] Comment:Preliminary ANC, Fin al Result to Follow [place] Cell Slight [facility] Toxic Gran Present [facility] Toxic Vac Present [facility] Abs Neutrophil 13.41(H) 1.70 - 6.50 k/cmm [facility] Abs Lymphocyte 2.96 0.80 - 4.00 k/cmm [facility] Abs Monocyte 0.87 0.20 - 1.00 k/cmm [facility] Abs Basophil 0.17 0.00 - 0.20 k/cmm [facility] Blood 11/11/2023 5:36 AM CDT 11/11/2023 5:45 AM CDT Zac Churchill MD LABORATORY Performing Organization Address City/[facility] [address]/ZIP Co de Phone Number [facility] [address] [address] * (ABNORMAL) ICU PANEL BASIC METABOLIC (BMP) (11/11/2023 5:36 AM CDT) AnGap 9 8 - 16 mmol/L [facility] BUN 15 6 - 20 mg/dL [facility] Calcium 6.0(AA) 8.6 - 10.0 mg/dL [facility] Comment:Critical Result Low Chloride 108 92 - 108 mmol/L [facility] CO2 22 22 - 30 mmol/L [facility] Glucose 135(H) 70 - 100 mg/dL [facility] Creatinine 0.93 0.70 - 1.25 mg/dL [facility] Potassium 3.2(L) 3.5 - 5.3 mmol/L [facility] eGFR (2020 CKD-EPI) 103 >=60 ml/min/1.7 3m2 [facility] Comment: The estimated glomerular filtration rate (eGFR) was calculated using the CKD-EPI 2020 creatinine equation, which does not include race as a factor. This equation is validated in individuals 18 years of age and older, and eGFR is normalized to a body surface area of 1.73m^2. Sodium 139 135 - 148 mmol/L [facility] Blood 11/11/2023 5:36 AM CDT 11/11/2023 5:45 AM CDT Narrative [facility] - 11/11/2023 6:25 AM CDT Critical value for Calcium called to and read back by Sheila Dias RN in STN4 at 11/11/2023 06:24:12 CDT by Larry Fuchs MLS. Zac Churchill MD LABORATORY [facility] [address] [address] * (ABNORMAL) POC GLUCOSE (11/11/2023 5:28 AM CDT) POC Glucose 149(H) 70 - 100 mg/dL [facility] Blood 11/11/2023 5:28 AM CDT Jsesica Grullon MD LABORATORY [facility] [address] [place] [address], [place] * (ABNORMAL) POC GLUCOSE (11/11/2023 4:29 AM CDT) POC Glucose 159(H) 70 - 100 mg/dL [facility] Blood 11/11/2023 4:29 AM CDT Jessica Grullon MD LABORATORY Performing Organization Address City/[facility] [address]/ZIP Co de Phone Number [facility] [address] [place] [address], [place] * (ABNORMAL) POC GLUCOSE (11/11/2023 3:28 AM CDT) POC Glucose 153(H) 70 - 100 mg/dL [facility] Blood 11/11/2023 3:28 AM CDT Jessica Grullon MD LABORATORY Performing Organization Address [facility] [address]/[facility] Co de Phone Number [facility] [address] [place] [address], [place] * (ABNORMAL) POC GLUCOSE (11/11/2023 2:18 AM CDT) POC Glucose 172(H) 70 - 100 mg/dL [facility] Blood 11/11/2023 2:18 AM CDT Jessica Grullon MD LABORATORY Performing Organization Address City/[facility] [address]/ZIP Co de Phone Number [facility] [address] [place] [address], [place] * (ABNORMAL) POC GLUCOSE (11/11/2023 1:03 AM CDT) POC Glucose 171(H) 70 - 100 mg/dL [facility] Blood 11/11/2023 1:03 AM CDT Jessica Grullon MD LABORATORY Performing Organization Address City/[facility] [address]/ZIP Co de Phone Number [facility] [address] [place] [address], * (ABNORMAL) POC GLUCOSE (11/10/2023 11:50 PM CDT) POC Glucose 201(H) 70 - 100 mg/dL [facility] Blood 11/10/2023 11:5 0 PM CDT Jessica Grullon MD LABORATORY Performing Organization Address [facility] [address]/[facility] Co de Phone Number [address] [address], [place] * (ABNORMAL) POC GLUCOSE (11/10/2023 10:39 PM CDT) POC Glucose 192(H) 70 - 100 mg/dL [facility] Blood 11/10/2023 10:3 9 PM CDT Jessica Grullon MD LABORATORY Performing Organization Address [facility] Co de Phone Number [facility] [address] [address], [place] * (ABNORMAL) TROP 6H (11/10/2023 10:15 PM CDT) 6H Trop 35 <=35 ng/L [facility] 6H Delta Significan t(A) Not Significant [facility] Blood 11/10/2023 10:1 5 PM CDT 11/10/2023 10:31 PM CDT Jessica Grullon MD LABORATORY [facility] [address] [place] [address] * (ABNORMAL) POC GLUCOSE (11/10/2023 9:36 PM CDT) POC Glucose 200(H) 70 - 100 mg/dL [facility] Blood 11/10/2023 9:36 PM CDT Jessica Grullon MD LABORATORY Performing Organization Address City/[facility] [address]/ZIP Co de Phone Number [facility] [address] [place], [place] [address], [place] * (ABNORMAL) POC GLUCOSE (11/10/2023 8:17 PM CDT) POC Glucose 221(H) 70 - 100 mg/dL [facility] Blood 11/10/2023 8:17 PM CDT Jessica Grullon MD LABORATORY Performing Organization Address [facility] [place] [address], [place] * (ABNORMAL) POC GLUCOSE (11/10/2023 7:07 PM CDT) POC Glucose 227(H) 70 - 100 mg/dL [facility] Blood 11/10/2023 7:07 PM CDT Jessica Grullon MD LABORATORY Performing Organization Address [facility] [address] [facility] Co de Phone Number [facility] [address] [place], [place] [address], [place] * (ABNORMAL) TROP 2H (11/10/2023 6:34 PM CDT) 2H Trop 21 <=35 ng/L [facility] 2H Delta Significan t(A) Not Significant [facility] Blood 11/10/2023 6:34 PM CDT 11/10/2023 6:37 PM CDT Jessica Grullon MD LABORATORY Performing Organization Address City/[facility] [address]/[facility] Co de Phone Number [facility] [address] [place] [address] * (ABNORMAL) LACTATE (LACTIC ACID) (11/10/2023 6:34 PM CDT) Lactate 14.6(H) 0.7 - 2.1 mmol/L [facility] Blood 11/10/2023 6:34 PM CDT 11/10/2023 6:37 PM CDT Narrative [facility] - 11/10/2023 6:41 PM CDT Send specimen on ice! Jessica Grullon MD LABORATORY [facility] [place] [address] * (ABNORMAL) POC GLUCOSE (11/10/2023 6:07 PM CDT) Pathologist [facility] POC Glucose 201(H) 70 - 100 mg/dL [facility] Blood 11/10/2023 6:07 PM CDT Jessica Grullon MD LABORATORY [facility] [address] [place] [address], * (ABNORMAL) POC GLUCOSE (11/10/2023 5:30 PM CDT) Pathologist [facility] POC Glucose 197(H) 70 - 100 mg/dL [facility] Blood 11/10/2023 5:30 PM CDT Jessica Grullon MD LABORATORY [facility] OF [address] [address], * M TUBERCULOSIS AMPLIFICATION (11/10/2023 5:13 PM CDT) Final Report M. tuberculosis complex DNA not detected. [facility] Tissue STRUCTURE OF PERINEAL BODY / Unknown 11/10/2023 5:13 PM CDT 11/11/2023 10:50 AM CDT Comment:2:Perineal tissue Narrative [facility] - 11/11/2023 3:22 PM CDT This assay uses PCR nucleic acid amplification to detect Mycobacterium tuberculosis complex DNA. ??This test was developed and its performance characteristics determined by [facility]. ??It has not been cleared or approved by the U.S. Food and Drug Administration. ??FDA does not require this test to go through premarket FDA review. ??This test is used for clinical purposes. ??It should not be regarded as investigational or for research. ??[facility] is certified under the Clinical Laboratory Improvement Amendments of 1988 (CLIA) as qualified to perform high complexity clinical laboratory testing. Zac Churchill MD LAB MICROBIOLOGY Performing Organization Address [facility] [address] [facility] Co de Phone Number [address] [address] * (ABNORMAL) TISSUE CULTURE:INCLUDES GRAM STAIN (11/10/2023 5:13 PM CDT) Final Report Positive Culture Rare Actinomyces species isolated. Most closely resembles Actinomyces hominis. Rare Staphylococcus pettenkoferi isolated. A member of the coagulase-negative Staphylococci. Staphylococcus epidermidis isolated in broth only. No further work-up. Plates held one week. (POS) [facility] Organism ACTINOMYCES SPECIES(POS) [facility] Organism STAPHYLOCOCCUS PETTENKOFERI(POS) [facility] Organism STAPHYLOCOCCUS EPIDERMIDIS(POS) [facility] Gram Stain Report Positive Gram stain Gram stain electronically reported to and acknowledged by: Fermin Osborn MD for Burn on 11/10/2023 18:43:03 by Silver Luna MLS Rare WBC's seen. Many gram positive cocci in clusters. (POS) [facility] Tissue STRUCTURE OF PERINEAL BODY / Unknown 11/10/2023 5:13 PM CDT Zac Churchill MD LAB MICROBIOLOGY Performing Organization Address [facility] [address] [facility]/ZIP Co de Phone Number [address] [address] * FUNGUS CULTURE:INCLUDES SUHAS (11/10/2023 5:13 PM CDT) Final Report No fungus isolated. [facility] SUHAS Prep No fungal elements seen. [facility] Tissue STRUCTURE OF PERINEAL BODY / Unknown 11/10/2023 5:13 PM CDT Zac Churchill MD LAB MICROBIOLOGY Performing Organization Address [facility] [address] [facility] Co de Phone Number [facility] [address] [address] * (ABNORMAL) ANAEROBE CULTURE (11/10/2023 5:13 PM CDT) Final Report Positive Culture Many mixed anaerobes present. (POS) [facility] Tissue STRUCTURE OF PERINEAL BODY / Unknown 11/10/2023 5:13 PM CDT Zac Churchill MD LAB MICROBIOLOGY Performing Organization Address [facility] Co de Phone Number [facility] [address] [address] * AFB CULTURE:INCLUDES AFB SMEAR (11/10/2023 5:13 PM CDT) Final Report No acid fast bacilli isolated. [facility] Acid Fast Stain No acid fast bacilli seen. [facility] Tissue STRUCTURE OF PERINEAL BODY / Unknown 11/10/2023 5:13 PM CDT Zac Churchill MD LAB MICROBIOLOGY Performing Organization Address [facility] [address] [facility] Co de Phone Number [facility] [address] [address] * (ABNORMAL) WOUND CULTURE:GRAM STAIN OPTIONAL (11/10/2023 5:12 PM CDT) Final Report Rare Actinomyces species isolated. Most closely resembles Actinomyces hominis. One colony Staphylococcus epidermidis isolated. (POS) [facility] Organism ACTINOMYCES SPECIES(POS) [facility] Organism STAPHYLOCOCCUS EPIDERMIDIS(POS) [facility] Gram Stain Report Many WBC's seen. Many gram positive cocci in clusters. [facility] Swab STRUCTURE OF PERINEAL BODY / Unknown 11/10/2023 5:12 PM CDT Narrative [facility] - 11/12/2023 3:34 PM CDT Do you want a gram stain: No Zac Churchill MD LAB MICROBIOLOGY Performing Organization Address [facility] [address] [facility] Co de Phone [facility] [facility] [facility] [address] [address] * FUNGUS CULTURE:INCLUDES SUHAS (11/10/2023 5:12 PM CDT) Final Report No fungus isolated. [facility] SUHAS Prep No fungal elements seen. [facility] Swab STRUCTURE OF PERINEAL BODY / Unknown 11/10/2023 5:12 PM CDT Zac Churchill MD LAB MICROBIOLOGY Performing Organization Address [facility] de Phone Number [address] [address] * ANAEROBE CULTURE (11/10/2023 5:12 PM CDT) Final Report Moderate mixed anaerobes present. [facility] Swab STRUCTURE OF PERINEAL BODY / Unknown 11/10/2023 5:12 PM CDT Zac Churchill MD LAB MICROBIOLOGY Performing Organization Address [facility] [address] [facility] Co de Phone Number [address] [address] * (ABNORMAL) POC GLUCOSE (11/10/2023 4:28 PM CDT) POC Glucose 236(H) 70 - 100 mg/dL [facility] Blood 11/10/2023 4:28 PM CDT Jessica Grullon MD LABORATORY Performing Organization Address [facility] [address]/[facility] Co de Phone Number [facility] [address] [place] [address], * ED EKG (12-LEAD) (11/10/2023 3:21 PM CDT) 11/10/2023 3:21 PM CDT Impressions [facility] E[facility] ORDERS - 11/10/2023 3:21 PM CDT SINUS TACHYCARDIA MINIMAL ST DEPRESSION ??[0.025+ mV ST DEPRESSION] ABNORMAL QRS-T ANGLE ??[QRS-T AXIS DIFFERENCE > 60] NONSPECIFIC ST AND T WAVE ABNORMALITY. ABNORMAL ECG P-R Interval 138 ms QRS Interval 90 ms QT Interval 348 ms QTC Interval 405 ms P [place] 35 QRS [place] 1 T Wave [place] 148 Narrative Procedure Note Jessica Grullon MD - 11/10/2023 IMPRESSION SINUS TACHYCARDIA MINIMAL ST DEPRESSION [0.025+ mV ST DEPRESSION] ABNORMAL QRS-T ANGLE [QRS-T AXIS DIFFERENCE > 60] NONSPECIFIC ST AND T WAVE ABNORMALITY. ABNORMAL ECG P-R Interval 138 ms QRS Interval 90 ms QT Interval 348 ms QTC Interval 405 ms P [place] 35 QRS [place] 1 T Wave [place] 148 Jessica Grullon MD EKG 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 ??No initial report accompanied the patient and/or Dr. ??JESSICA GRULLON requested an interpretation by me. Technique: ??CT scan of the left lower extremity done on 11/10/2023 with IV contrast. 2 mm axial, sagittal and coronal reconstructions reviewed in soft tissue and bone windows, per the local institution's scanning protocols, which may differ from the [facility]. Findings: ??Subcutaneous emphysema within the [...] of the right hip. Procedure Note Praful Woodson, CHERELLE - 11/10/2023 Indication: Patient transferred from [facility] due toFournier's gangrene. No initial report accompanied the patient and/or Dr.JESSICA GRULLON requested an interpretation by me. Technique: CT scan of the left lower extremity done on 11/10/2023 with IVcontrast. 2 mm axial, sagittal and coronal reconstructions reviewed insoft tissue and bone windows, per the local institution's scanningprotocols, which may differ from the [facility]. 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 ??No initial report accompanied the patient and/or Dr. ??JESSICA GRULLON requested an interpretation by me. Technique: ??CT scan of the abdomen/pelvis done on 11/10/2023 ??with IV contrast. ??3 mm axial, sagittal and coronal reconstructions reviewed in soft tissue and bone windows, per the local institution's scanning protocols, which may differ from the [facility] protocols. Comparison: Same day scrotal ultrasound. [...] MBBS - 11/10/2023 Indication: Patient transferred from [facility] due toFournier's gangrene. No initial report accompanied the patient and/or Dr.ROCHELLE GRULLON requested an interpretation by me. Technique: CT scan of the abdomen/pelvis done on 11/10/2023 with IVcontrast. 3 mm axial, sagittal and coronal reconstructions reviewed insoft tissue and bone windows, per the local institution's scanningprotocols, which may differ from the [facility] protocols. Comparison: Same day scrotal ultrasound. [...] (11/10/2023 2:40 PM CDT) Color YELLOW YELLOW [facility] Appearance CLEAR CLEAR [facility] Urine Glucose >=1000(A) NEGATIVE mg/dL [facility] Bili UA NEGATIVE NEGATIVE [facility] Ketones TRACE(A) NEGATIVE [facility] Blood Ur LARGE(A) Neg-Trace [facility] PH Urine 6.5 5.0 - 7.0 [facility] Protein Ur >=600(A) Neg-Trace [facility] Urobilinogen NORMAL NORMAL EU/dL [facility] Nitrite Ur NEGATIVE NEGATIVE [facility] Leuk Est NEGATIVE Neg-Trace [facility] WBC Ur 0-5 0 - 5 perHPF [facility] RBC Ur 11-20(A) 0 - 3 perHPF [facility] SQ EPITH 0-5 0 - 5 perHPF [facility] Mucus 1+ perLPF [facility] Bacteria UA PRESENT [facility] Comment:Presence of bacteria does not necessarily indicate a UTI. The presence of bacteria can indicate a non-clean catch urine specimen. Bacteria should be used in conjunction with other UA results and clinical presentation to assist in diagnosing an infection. Urinalysis Performed at: [facility] Specific [place] 1.020 1.003 - 1.030 [facility] Urine 11/10/2023 2:40 PM CDT 11/10/2023 2:47 PM CDT Jessica Grullon MD LABORATORY [facility] [address] [address] * BLOOD AEROBIC/ANAEROBIC CULTURE (11/10/2023 2:39 PM CDT) Final Report No growth after 5 days. [facility] Blood (Peripheral) 11/10/2023 2:39 PM CDT 11/10/2023 4:09 PM CDT Jessica Grullon MD LAB MICROBIOLOGY Performing Organization Address [facility] Co de Phone Number [facility] [address] [address] * BLOOD AEROBIC/ANAEROBIC CULTURE (11/10/2023 2:37 PM CDT) Final Report No growth after 5 days. [facility] Blood (Peripheral) 11/10/2023 2:37 PM CDT 11/10/2023 4:09 PM CDT Jessica Grullon MD LAB MICROBIOLOGY Performing Organization Address [facility] Co de Phone Number [facility] [address] [address] * (ABNORMAL) SED RATE (ESR) (11/10/2023 2:31 PM CDT) Pathologist [facility] Sed Rate 120(H) 2 - 10 mm/hr [facility] Blood 11/10/2023 2:31 PM CDT 11/10/2023 2:57 PM CDT Jessica Grullon MD LABORATORY Performing Organization Address [facility] Co de Phone Number [facility] [address] [address] * EXTRA TUBE - SST (11/10/2023 2:31 PM CDT) SST TUBE Stored [facility] Comment:SST tubes (Serum Sep arator) are stored in the lab for 3 days from the collection date. Blood 11/10/2023 2:31 PM CDT 11/10/2023 2:43 PM CDT Jessica Grullon MD LABORATORY Performing Organization Address City/[facility] [address]/ZIP Co de Phone Number [address] [address] * (ABNORMAL) HS TROPONIN (11/10/2023 2:31 PM CDT) HS Troponin I 49(H) <=35 ng/L [facility] Blood 11/10/2023 2:31 PM CDT 11/10/2023 2:57 PM CDT Narrative [facility] - 11/10/2023 3:25 PM CDT First Occurrence of the Troponin order is to be drawn Stat by Nursing staff on the unit. Jessica Grullon MD LABORATORY Performing Organization Address [facility] [address]/[facility] Co de Phone Number [address] [address] * ETHANOL (ETOH) LEVEL, BLOOD (11/10/2023 2:31 PM CDT) Ethanol Negative Negative g/dL [facility] Blood 11/10/2023 2:31 PM CDT 11/10/2023 2:57 PM CDT Jessica Grullon MD LABORATORY Performing Organization Address [facility] [address]/[facility] Co de Phone Number [address] [address] * PTT (APTT) (11/10/2023 2:31 PM CDT) APTT 32.9 25.0 - 37.0 sec [facility] Blood 11/10/2023 2:31 PM CDT 11/10/2023 2:57 PM CDT Jessica Grullon MD LABORATORY Performing Organization Address City/[facility] [address]/ZIP Co de Phone Number [address] [address] * ED INR (11/10/2023 2:31 PM CDT) [facility] ED INR 1.1 0.8 - 1.1 [facility] Comment: Warfarin Therapeutic Range: Standard Intensity: 2.0 - 3.0 High Intensity: 2.5 - 3.5 This is a rapid INR screening test which uses whole blood; results may infrequently differ from plasma INR results. If medication adjustments/dosing are required a PT/INR test ([id number]) should be ordered and performed in the main laboratory. Blood 11/10/2023 2:31 PM CDT 11/10/2023 2:41 PM CDT Jessica Grullon MD LABORATORY [address] [address] * (ABNORMAL) LACTATE (LACTIC ACID) (11/10/2023 2:31 PM CDT) [facility] Lactate 2.3(H) 0.7 - 2.1 mmol/L [facility] Blood 11/10/2023 2:31 PM CDT 11/10/2023 2:45 PM CDT Narrative [facility] - 11/10/2023 2:49 PM CDT Send specimen on ice! Jessica Grullon MD LABORATORY [address] [address] * (ABNORMAL) FIBRINOGEN (11/10/2023 2:31 PM CDT) [facility] Fibrinogen >1,000(H) 200 - 400 mg/dL [facility] Blood 11/10/2023 2:31 PM CDT 11/10/2023 2:57 PM CDT Jessica Grullon MD LABORATORY [address] [address] * (ABNORMAL) PANEL HEPATIC FUNCTION (11/10/2023 2:31 PM CDT) Pathologist [facility] Total Protein 7.1 6.4 - 8.3 g/dL [facility] Albumin 2.9(L) 3.8 - 5.1 g/dL [facility] Bili Total 0.3 <=1.2 mg/dL [facility] Bili Direct <0.2 <=0.3 mg/dL [facility] Alk Phos 104 40 - 129 IU/L [facility] Comment:No reference range e stablished for patients <18 years old. ALT (SGPT) 9 <=41 IU/L [facility] AST(SGOT) 14 5 - 40 IU/L [facility] Blood 11/10/2023 2:31 PM CDT 11/10/2023 2:57 PM CDT Jessica Grullon MD LABORATORY Performing Organization Address City/[facility] [address]/ZIP Co de Phone Number [facility] [address] [address] * (ABNORMAL) ED HEMOGLOBIN TOTAL (ED ONLY) (11/10/2023 2:31 PM CDT) [facility] Hgb 12.4(L) 13.1 - 17.5 g/dL [facility] Blood 11/10/2023 2:31 PM CDT 11/10/2023 2:45 PM CDT Jessica Grullon MD LABORATORY [facility] [address] [address] * (ABNORMAL) ED CHEMISTRY LABS(NA,K,CL,CO2,GLU,CREAT,CA-IONIZED,ANION GAP) (11/10/2023 2:31 PM CDT) [facility] Sodium 133(L) 135 - 148 mmol/L [facility] Potassium 3.7 3.5 - 5.3 mmol/L [facility] Chloride 93 92 - 108 mmol/L [facility] AnGap 12 8 - 16 mmol/L [facility] Glucose 304(H) 70 - 100 mg/dL [facility] ICA, Actual 4.14(L) 4.40 - 5.20 mg/dL [facility] ICA, pH Corrected 4.29(L) 4.40 - 5.20 mg/dL [facility] Creatinine 0.98 0.70 - 1.25 mg/dL [facility] BICARB 27(H) 22 - 26 mEq/L [facility] eGFR (2020 CKD-EPI) 97 >=60 ml/min/1.7 3m2 [facility] Comment: The estimated glomerular filtration rate (eGFR) was calculated using the CKD-EPI 2020 creatinine equation, which does not include race as a factor. This equation is validated in individuals 18 years of age and older, and eGFR is normalized to a body surface area of 1.73m^2. Blood 11/10/2023 2:31 PM CDT 11/10/2023 2:45 PM CDT Jessica Grullon MD LABORATORY [facility] [address] [address] * (ABNORMAL) CBC WITH PLTS/AUTO DIFF (11/10/2023 2:31 PM CDT) WBC 21.95(H) 4.00 - 10.00 k/cmm [facility] RBC 4.26(L) 4.60 - 6.00 m/cmm [facility] Hgb 12.0(L) 13.1 - 17.5 g/dL [facility] Hematocrit 36.3(L) 40.0 - 51.0 % [facility] MCV 85.2 80.0 - 100.0 fL [facility] MCH 28.2 25.0 - 32.0 pg [facility] MCHC 33.1 31.0 - 36.0 g/dL [facility] RDW 12.9 11.5 - 14.5 % [facility] Plt 262 150 - 400 k/cmm [facility] MPV 10.1 6.5 - 12.5 fL [facility] Automated Abs Neutrophil 18.29(H) 1.70 - 6.50 k/cmm [facility] Comment:Preliminary ANC, Fin al Result to Follow Abs Immature Granulocyte 0.26(H) 0.00 - 0.09 k/cmm [facility] Comment:The Immature Granulo cyte Absolute count contains metamyelocytes and myelocytes. Abs Neutrophil 18.29(H) 1.70 - 6.50 k/cmm [facility] Abs Lymphocyte 1.53 0.80 - 4.00 k/cmm [facility] Abs Monocyte 1.83(H) 0.20 - 1.00 k/cmm [facility] Abs Eosinophil 0.00 0.00 - 0.60 k/cmm [facility] Abs Basophil 0.04 0.00 - 0.20 k/cmm [facility] Polychromasia Slight [facility] Dohle Body Present [facility] Toxic Vac Present [facility] Blood 11/10/2023 2:31 PM CDT 11/10/2023 2:57 PM CDT Jessica Grullon MD LABORATORY Performing Organization Address City/[facility] [address]/[facility] Co de Phone Number [facility] [address] [address] * (ABNORMAL) BLOOD GASES (11/10/2023 2:31 PM CDT) [facility] PH Mayo 7.47(H) 7.32 - 7.42 [facility] PCO2 [place] 38(L) 41 - 51 mmHG [facility] PO2 [place] 75(H) 25 - 40 mmHG [facility] Bicarb [place] 27 24 - 28 mEq/L [facility] O2 Sat [place] 96 % [facility] Base Exc [place] 3.7(H) -10.0 - 2.0 mmol/L [facility] Blood Venous 11/10/2023 2:31 PM CDT 11/10/2023 2:45 PM CDT Jessica Grullon MD LABORATORY Performing Organization Address [facility] [address]/[facility] Co de Phone Number [facility] [address] [address] * ANTIBODY SCREEN (11/10/2023 2:29 PM CDT) Lilly Screen Negative [facility] Blood 11/10/2023 2:29 PM CDT 11/10/2023 2:49 PM CDT Jessica Grullon MD LAB TRANSFUSION SER VICES Performing Organization Address [facility] [address]/[facility] Co de Phone Number [facility] [place] [phone] * BLOOD TYPING-ABO/RH (11/10/2023 2:29 PM CDT) ABORHG A POS [facility] Blood 11/10/2023 2:29 PM CDT 11/10/2023 2:49 PM CDT Jessica Grullon MD LAB TRANSFUSION SER VICES Performing Organization Address [facility] [address]/[facility] Co de Phone Number [facility] [place] [phone] * PRECAUTIONARY TUBE (11/10/2023 2:29 PM CDT) Prec Tube Precautionary Blood Bank Specimen Received. [facility] Blood 11/10/2023 2:29 PM CDT 11/10/2023 2:49 PM CDT Jessica Grullon MD LAB TRANSFUSION SER VICES Performing Organization Address [facility] [address]/[facility] Co de Phone Number [facility] [place] [phone] * ED US CRITICAL CARE (11/10/2023 2:28 PM CDT) Anatomical Region Laterality Modality Ultrasound Narrative 11/10/2023 3:16 PM CDT ED Critical Care Resuscitative Ultrasound ED Cardiac Ultrasound Body Areas Imaged: Heart, Chest Wall/Lungs, and Inferior Vena Cava Indications:Shock/Sepsis Window: Subxiphoid, Parasternal [place], Parasternal [place], Apical 4-Chamber, and Bilateral Lungs Findings: The [...] local infection of skin and subcutaneous tissue documented in this encounter Admitting Diagnoses Diagnosis 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 Hyperglycemia Other abnormal glucose documented in this encounter Administered Medications Inactive Administered Medications - up to 3 most recent administrations Medication Order MAR Action Action Date Dose Rate Site acetaminophen (TYLENOL) tablet 975 mg 975 mg, Oral, TID, First dose (after last modification) on Wed11/11/23 at 1030, Until Discontinued Given 11/25/2023 8:47 AM CDT 975 mg Given 11/24/2023 8:16 PM CDT 975 mg Given 11/24/2023 2:29 PM CDT 975 mg amLODIPine (NORVASC) tablet 10 mg 10 [...] Until Wed11/25/23 at 1502, Constipation (Use Second) bupivacaine 0.5% injection INTRA-OP ONCE PRN, Starting on Wed11/17/23 at 0912, Until Wed11/17/23 at 0958 Given 11/17/2023 9:12 AM CDT 12 mL cyclobenzaprine (FLEXERIL) tablet 10 mg 10 [...] Wed11/24/23 at 1319, Until Wed11/25/23 at 1502 escitalopram (LEXAPRO) tablet 20 mg 20 mg, Oral, BEDTIME, First dose (after last modification) on Wed11/13/23 at 2000, Until Discontinued Given 11/24/2023 8:16 PM CDT 20 mg Given 11/23/2023 8:29 PM CDT 20 mg Given 11/22/2023 8:35 PM CDT 20 mg heparin 58080 UNITS/mL injection 7,500 UNITS 7,500 UNITS, Subcutaneous, Q 8H, First dose on Wed11/17/23 at 1505, Until Discontinued Given 11/25/2023 6:46 AM CDT 7,500 UNITS Left Upper Arm Given 11/24/2023 10:24 PM CDT 7,500 UNITS Left Upper Arm Given 11/24/2023 2:29 PM CDT 7,500 UNITS A bdominal Tissue insulin ASPART (NovoLOG) FlexPen Insulin Order Mode: [...] at 2100, Until Discontinued insulin GLARGINE (LANTUS) 30 UNITS injection vial 30 UNITS, Subcutaneous, Q24H, First dose (after last modification) on Wed11/18/23 at 1230, Until Discontinued Given 11/24/2023 11:52 AM CDT 30 UNITS Abdominal Tissue Given 11/23/2023 12:50 PM CDT 30 UNITS L eft Lower Quadrant Abdomen Given 11/22/2023 11:47 AM CDT 30 UNITS A bdominal Tissue nicotine (NICOTROL) 14 mg/ 24hr daily 1 [...] PRN, Starting on Wed11/14/23 at 2323, Until Wed11/25/23 at 1502, IV Line Flush Given 11/15/2023 6:27 AM CDT 10 mL Given 11/15/2023 5:34 AM CDT 10 mL Given 11/15/2023 1:27 AM CDT 10 mL oxyCODONE (ROXICODONE) tablet 5-10 mg 5-10 mg, Oral, Q4H PRN, Starting on Wed11/11/23 at 1026, Until Wed11/25/23 at 1502, Moderate Pain (Use First) Given 11/25/2023 9:52 AM CDT 5 mg Given 11/24/2023 8:25 PM CDT 5 mg Given 11/23/2023 2:24 PM CDT 5 mg polyethylene glycol 3350 (MIRALAX;GLYCOLAX) packet 17 g 17 g, Oral, DAILY, First dose on Wed11/11/23 at 0800, Until Discontinued Given 11/22/2023 8:20 AM CDT 17 g Given 11/20/2023 9:36 AM CDT 17 g Given 11/19/2023 8:53 AM CDT 17 g prazosin (MINIPRESS) capsule 1 mg 1 mg, [...] dose (after last modification) on Wed11/11/23 at 2000, Until Discontinued Given 11/25/2023 8:47 AM CDT 17.2 mg Given 11/23/2023 8:29 PM CDT 17.2 mg Given 11/22/2023 8:20 AM CDT 17.2 mg traZODone (DESYREL) tablet 50 mg 50 mg, Oral, BEDTIME, First dose on Wed11/12/23 at 2000, Until Discontinued Given 11/24/2023 8:15 PM CDT 50 mg Given 11/23/2023 8:30 PM CDT 50 mg Given 11/22/2023 8:35 PM CDT 50 mg documented in this encounter Active and Recently Administered Medications Times are shown in CDT. Scheduled Medication Order 11/23/2023 11/24/2023 11/25/2023 acetaminophen (TYLENOL) tablet 975 mg 975 mg, Oral, TID, First dose (after last modification) on Wed11/11/23 at 1030, Until Discontinued 903 (Given - Provider: John Taylor RN)142 (Given - Provider: Demetra Brito RN)2029 (Given - Provider: Irene Min, SABINE) 075 (Given - Provider: Demetra Brito RN)142 (Given - Provider: Demetra Brito RN)2015 (Given - Provider: Sheila Dias, RN) 0847 (Given - Provider: Kate Harmon, RN) amLODIPine (NORVASC) tablet 10 mg 10 mg, Oral, DAILY, First dose (after last modification) on Wed11/17/23 at 2110, Until Discontinued 2028 (Given - Provider: Irene Min, SABINE) 2015 (Given - Provider: Sheila Dias, RN) cyclobenzaprine (FLEXERIL) tablet 10 mg 10 mg, Oral, TID, First dose on Wed11/11/23 at 1200, Until Discontinued 0904 (Given - Provider: John Taylor RN)1424 (Given - Provider: Demetra Brito RN)2029 (Given - Provider: Irene Min RN) 0751 (Given - Provider: Demetra Brito RN)1430 [...] Wed11/24/23 at 1319, Until Wed11/25/23 at 1502 escitalopram (LEXAPRO) tablet 20 mg 20 mg, Oral, BEDTIME, First dose (after last modification) on 11/13/23 at 2000, Until Discontinued 2028 (Given - Provider: Irene Min RN) 2015 (Given - Provider: Sheila Dias RN) heparin 01259 UNITS/mL injection 7,500 UNITS 7,500 UNITS, Subcutaneous, [...] Demetra Brito RN)1250 (Given - Provider: John Taylor, SABINE) 1149 (Dual Sign-Off - Provider: Demetra Brito RN)1152 (Given - Provider: Demetra Brito RN) nicotine (NICOTROL) 14 mg/ 24hr daily 1 patch 1 patch, Transdermal, DAILY, First dose on Wed11/16/23 at 0900, Until Discontinued 0938 (Patch applied - Provider: Demetra Brito RN) 0750 (Patch removed - Provider: Demetra Brito RN)0751 (Patch applied - Provider: Demetra Brito RN) 0847 (Patch applied - Provider: Kate Harmon RN)0849 (Patch removed - Provider: Kate Harmon RN)1202 [...] Brito RN)2018 (Given - Provider: Sheila Dias, SABINE) 0849 (Given - Provider: Kate Harmon RN) polyethylene glycol 3350 (MIRALAX;GLYCOLAX) packet 17 g [...] 2014 (Given - Provider: Sheila Dias RN) rosuvastatin (CRESTOR) tablet 10 mg 10 mg, [...] 2014 (Given - Provider: Sheila Dias RN) PRN Medication Order 11/23/2023 11/24/2023 11/25/2023 bisacodyl [...] RN) 075 (Given - Provider: Demetra Brito RN)0900 (Given [...]
--- OUTSIDE RECORDS SUMMARY | 2024-02-07 08:54 | XMS_ITS | Encounter Summary ---
Author Organization Formerly Named [facility] Address [address] [place] [address] Phone Care Team Providers Care Wire Coater Name Role Phone Unavailable Primary Care Provider [...] Date/Time Associated Diagnosis Comments TELEMETRY STRIPS 11/15/2023 5:20 AM CDT documented in this encounter Results * TELEMETRY STRIPS (11/15/2023 5:20 AM CDT) Narrative 11/15/2023 5:20 AM CDT Ordered by an unspecified provider. 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
--- OUTSIDE RECORDS SUMMARY | 2024-02-07 08:54 | XMS_ITS | Encounter Summary ---
Author Organization [facility] Address [address] [place] [address] Phone Care Team Providers Care Grid Molder Name Role Phone Unavailable Primary Care Provider Unavailabl e Encounter Details Date Type Department Care Team (Late st Contact Info) Description 11/14/2023 Orders Only Unspecified Department [place] Unknown, [...] Priority Date/Time Associated Diagnosis Comments TELEMETRY STRIPS 11/14/2023 9:37 AM CDT documented in this encounter Results * TELEMETRY STRIPS (11/14/2023 9:37 AM CDT) Narrative 11/14/2023 9:37 AM CDT Ordered by an unspecified provider. 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
--- OUTSIDE RECORDS SUMMARY | 2024-02-07 08:54 | XMS_ITS | Encounter Summary ---
Author Organization [facility] Address [address] [place] [address] Phone Care Team Providers Care Steel Placer Name Role Phone Unavailable Primary Care Provider [...] Date/Time Associated Diagnosis Comments TELEMETRY STRIPS 11/14/2023 5:30 PM CDT documented in this encounter Results * TELEMETRY STRIPS (11/14/2023 5:30 PM CDT) Narrative 11/14/2023 5:30 PM CDT Ordered by an unspecified provider. 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
--- OUTSIDE RECORDS SUMMARY | 2024-02-07 08:55 | XMS_ITS | Encounter Summary ---
Author Organization [facility] Address [address] [place] [address] Phone Care Team Providers Care Invoice Coder Name Role Phone Unavailable Primary Care Provider Unavailabl e Encounter Details Date Type Department Care Team (Late st Contact Info) Description 11/11/2023 Orders Only Unspecified Department [place] Unknown, [...] Priority Date/Time Associated Diagnosis Comments TELEMETRY STRIPS 11/11/2023 5:48 PM CDT documented in this encounter Results * TELEMETRY STRIPS (11/11/2023 5:48 PM CDT) Narrative 11/11/2023 5:48 PM CDT Ordered by an unspecified provider. 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
--- OUTSIDE RECORDS SUMMARY | 2024-02-07 08:55 | XMS_ITS | Encounter Summary ---
Author Organization [facility] Address [address] [place] [address] Phone Care Team Providers Care Motor Vehicle Or Caravan Salesperson Name Role Phone Unavailable Primary Care Provider Unavailabl e Encounter Details Date Type Department Care Team (Late st Contact Info) Description 11/12/2023 Orders Only Unspecified Department [place] Unknown, [...] Priority Date/Time Associated Diagnosis Comments TELEMETRY STRIPS 11/12/2023 7:58 PM CDT documented in this encounter Results * TELEMETRY STRIPS (11/12/2023 7:58 PM CDT) Narrative 11/12/2023 7:58 PM CDT Ordered by an unspecified provider. 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
--- OUTSIDE RECORDS SUMMARY | 2024-02-07 08:55 | XMS_ITS | Encounter Summary ---
Author Organization [facility] Address [address] [place] [address] Phone Care Team Providers Care Manager Software Name Role Phone Unavailable Primary Care Provider [...] Date/Time Associated Diagnosis Comments TELEMETRY STRIPS 11/12/2023 3:20 AM CDT documented in this encounter Results * TELEMETRY STRIPS (11/12/2023 3:20 AM CDT) Narrative 11/12/2023 3:20 AM CDT Ordered by an unspecified provider. 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
--- OUTSIDE RECORDS SUMMARY | 2024-02-07 08:55 | XMS_ITS | Encounter Summary ---
Author Organization [facility] Address [address] [place] [address] Phone Care Team Providers Care Regulatory Submissions Specialist Name Role Phone Unavailable Primary Care Provider Unavailabl e Reason for Visit * Auth/Cert (Routine) Specialty Diagnoses / Procedures Referred By Contmini t Referred To Contact SURGERY Diagnoses 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HHS) Hyperglycemia Zac Jackson MD [address] [place] [address] [address] [place] [address] [address] [place] [address] [place] [address] Referral ID Status Reason Start Date Expiration Date Visits Re quested Visits Authorized [id number] 1 1 Encounter Details Date Type Department Care Team (Late st Contact Info) Description 11/11/2023 2:34 PM CDT Anesthesia Event OR P4 [address] [place] [address] Jatin Eckert MD [address] [place], [place] [id number] Cristiano Gage APRN, [place] [address] [place], [place] [id number] Anesthesia Record Procedure Summary Procedure Name Responsible Anesthesiologist Anesthesia Start Time Anesthesia Stop Time IRRIGATION AND DEBRIDEMENT, PERINEAL WOUND (Groin) Jatin Eckert MD 11/11/23 1434 11/11/23 1546 Events Date Time Event Comment 11/11/2023 1409 Anesthetic plan discussed with Anesthesiologist 1409 Pre-op End 1434 An Start 1434 An Start Data 1434 IOPAE The intraoperat dasha pre-anesthetic evaluation was completed with no changes noted from the pre-operative anesthesia evaluation. 1442 An Induction 1445 An Intubation 1534 An Emergence 1537 Extubation 1540 an stop data 1546 An Stop Meds Name Total fentaNYL (SUBLIMAZE) 100 mcg/ 2 mL injec tion 50 mcg lidocaine 2% injection 80 mg propofol (DIPRIVAN) injection 170 mg rocuronium (ZEMURON) injection 50 mg phenylephrine 100 mcg/mL syringe 900 mcg sugammadex (BRIDION) 200 mg/ 2mL injecti on 400 mg insulin REGULAR (HumuLIN R) 1 Units/mL i nfusion 1.8 UNITS vancomycin (VANCOCIN) 2,750 mg in NaCl 0 .9% IVPB 2,750 mg piperacillin-tazobactam (ZOSYN) 4.5 g in NaCl 0.9% IVPB 0 g ePHEDrine 25 mg/5 mL syringe 10 mg ondansetron (ZOFRAN) 4 mg/2 mL injection 4 mg 4 mg lactated ringers infusion 500 mL * Agents No agents on file. * Blood No blood administrations on file. Lines, Drains, and Airways Type Details Placement Removal Wound 11/10/23; 1707; Incision; Perineum; I+D site 11/11/23 11/10/23 1707 by Jeannie Wiley RN Wound 11/10/23; 1839; Y; Foot; Left; left toe 11/10/23 1839 by Nahid Powell RN Peripheral IV 11/10/23; 20 gauge; Right; Antecubital; Placed Prior to arrival by EMS; 11/15/23 (none found upon assessement) 11/10/23 0000 by Monica Sheppard RN 11/15/23 0000 by Georgette Arita RN Peripheral IV 11/10/23; 1435; 20 gauge; Right; Hand; Placed in ED; 11/15/23 (none found upon assessment) 11/10/23 1435 by Monica Sheppard RN 11/15/23 0000 by Georgette Arita RN Urinary Catheter 11/10/23; 1748; ICU output for active resuscitation/bleeding (nec fasc-perineum); indwelling double lumen coude tip catheter (no difficulty with placement-pale yellow urine output); 10 mL; Placed in OR; 11/15/23; 1235 11/10/23 1748 by Paual Mancuso RN 11/15/23 1235 by Adolfo Barone RN Endotracheal Tube: 11/11/23; 1456 (ambreen lewis via procedure documentation); 7.5; 11/11/23; 1537 11/11/23 1456 by Ha Tavares APRN, CRNA 11/11/23 1537 by Ha Tavares APRN, CRNA documented in this encounter Social History Tobacco Use Types Packs/Day Years Used Date Smoking Tobacco: Never Assessed Sex and Gender Information Value Date Recorded Sex Assigned at Not on file Gender Identity Not on file Sexual Orientation Not on file documented as of this encounter OR Notes * Anesthesia Postprocedure Evaluation - Jatin Eckert MD - 11/11/2023 5:31 PM CDT Anesthesia Post Eval Patient: Matt Thibodeaux Daryabailey Procedure(s) Performed: IRRIGATION AND DEBRIDEMENT, PERINEAL WOUND (Groin) I've examined the patient and determined that he[facility] is medically [facility] Anesthesia type: General () Patient location: PACU Patient status: Post-procedure vital signs reviewed and stable Level of Consciousness: Awake Post-op pain: Adequate Respiratory: Stable Cardiovascular: Stable PONV status: none Fluid status: Acceptable Last Vitals: Vitals Value Taken Time BP 100/69 11/11/23 1730 Temp 35.8 ??C (96.4 ??F) 11/11/23 1648 Pulse 94 11/11/23 1731 Resp 16 11/11/23 1731 SpO2 97 % 11/11/23 1731 Vitals shown include unfiled device data. * Anesthesia Procedure Notes - Ha Tavares APRN, CRNA - 11/11/2023 2:55 PM CDTAssociated Order(s): Intubation/Airway AIRWAY/INTUBATION PROCEDURE GlideScope (Type: Surgical Anesthesia) Process/Method: awake Indications for procedure: surgery Preoxygenation: mask Device Device used: Glidescope Supporting device: Blade size: 4 The patient was intubated with a 7.5 mm endotracheal tube inflated to seal and secured at 23 cm to Lips Grade: I Narrative 1 intubation attempt(s) confirmed in 0-30 sec Intubation Assessment: +ETCO2, EBBS and fog in ETT Ease of masking (I-easy to IV-difficult): III Ease of intubation (I-easy to IV-difficult): I Dentition Assessment: poor dentition, dentition unchanged and oral mucosa unchanged Performed by: Other: Gala Baxter Anesthesia start: 11/11/2023 2:34 PM Intubation time: 11/11/2023 2:45 PM * Anesthesia Preprocedure Evaluation - Jatin Eckert MD - 11/11/2023 2:28 PM CDT Anesthesia Pre-Evaluation Summary Statement: This is a 43 y.o. year old patient scheduled for IRRIGATION AND DEBRIDEMENT, PERINEAL WOUND. 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, now return to OR for another I&D Pulmonary - normal exam (+) , sleep apnea, , , , , , , , , , Neurological (+) traumatic brain injury Psychiatric - negative ROS Cardiovascular - normal exam EKG reviewed Rhythm: regular Rate: normal ROS comment: Minimal ST depressions on EKG but no chest pain Troponin slightly elevated at 49 Endo (+) diabetes mellitus () Musculoskeletal - negative ROS HEENT - negative ROS GI (+) obesity Hematologic/Onc - negative ROS /Renal/Custom Marine Canvas Fabricator ROS comment: Founier's gangrene Airway Mallampati: II TM distance: >3 FB Neck ROM: full Mouth Opening: good Dental (+) missing teeth and poor dentition Risk of dental damage discussed with patient/guardian who acknowledges understanding. OB Other Physical Exam Anesthesia Plan ASA 3 general intravenous induction Maintenance: Balanced Post-op Care: routine analgesia Plan discussed with BROADCASTING EQUIPMENT MECHANIC. Vitals: 11/11/23 1240 BP: Pulse: 78 Resp: Temp: SpO2: 96% documented in this encounter Miscellaneous Notes * Anesthesia Handoff Note - Gala Baxter SRN - 11/11/2023 3:46 PM CDT Anesthesia Post Handoff Patient: Matt Low Procedure(s) Performed: IRRIGATION AND DEBRIDEMENT, PERINEAL WOUND (Groin) Patient was stable and nail beds/oral mucosa pink at time of handoff. Patient location: PACU Transportation: Patient was placed on high flow oxygen. Anesthesia Type: general Patient did not meet fast track criteria. Report to RN () The nurse's questions were answered. Comments: SBAR report given to RN Last Vitals: Vitals: 11/11/23 1545 BP: 144/80 Pulse: 95 Resp: 17 Temp: 36.5 ??C (97.7 ??F) SpO2: 92% * Anesthesia Extubation Note - Gala Baxter SRN - 11/11/2023 3:37 PM CDT Anesthesia Extubation Note At the time of extubation the patient was breathing spontaneously, follows commands, orally suctioned, awake, vital signs stable and within normal limits, headlift for 5 seconds, strong hand grasps for 5 seconds, 4-4 on TOF with sustained tetany, briskly follows verbal commands and eyes open. Extubation details: Spontaneous respirations and High flow oxygen documented in this encounter Plan of Treatment Not on file documented as of this encounter Procedures Procedure Name Priority Date/Time Associated Diagnosis Comments INTUBATION Routine 11/11/2023 2:55 PM CDT documented in this encounter Results * Intubation/Airway (11/11/2023 2:55 PM CDT) Narrative [...] 11/11/2023 2:45 PM Jatin Eckert MD PROCEDURES documented in this encounter Visit Diagnoses Not on filedocumented in this encounter Administered Medications Inactive Administered Medications - up to 3 most recent administrations Medication Order MAR Action Action Date Dose Rate Site ephedrine (EMERPHED) 50 mg/ 10 mL injection Intravenous, INTRA-OP PRN ONCE MAY REPEAT, Starting on Wed11/11/23 at 1507, Until Wed11/11/23 at 1546 Given 11/11/2023 3:08 PM CDT 5 mg Given 11/11/2023 3:07 PM CDT 5 mg fentaNYL (SUBLIMAZE) 100 mcg/2mL injection Intravenous, INTRA-OP PRN ONCE MAY REPEAT, Starting on Wed11/11/23 at 1442, Until Heather 11/11/23 at 1546 Given 11/11/2023 2:42 PM CDT 50 mcg insulin REGULAR (HumuLIN R) 1 Units/mL infusion 0-25 Units/hr (0-25 mL/hr), Start Infusion at (UNITS/hr): 4, Intravenous, CONTINUOUS, Starting on Wed11/10/23 at 1500, Until Wed11/12/23 at 1146 Rate Verify 11/12/2023 11:15 AM CDT 2 Units/hr 2 mL/hr Rate Verify 11/12/2023 10:41 AM CDT 2 Units/hr 2 mL/hr Rate Verify 11/12/2023 9:10 AM CDT 2 Units/hr 2 mL/hr lactated ringers infusion Intravenous, PERIOP CONTINUOUS, Starting on Heather 11/11/23 at 1500, Until Heather 11/11/23 at 1546 New Bag 11/11/2023 2:32 PM CDT lidocaine 2% injection Intravenous, INTRA-OP PRN ONCE MAY REPEAT, Starting on Heather 11/11/23 at 1442, Until Heather 11/11/23 at 1546 Given 11/11/2023 2:42 PM CDT 80 mg ondansetron (ZOFRAN) 4 mg/2 mL injection 4 mg 4 mg, IV Push, Q6H PRN, Starting on Wed11/10/23 at 2344, Until Wed11/16/23 at 1345, Nausea/Vomiting (Use First), Use for patients with vomiting, NPO status, or patient refuses oral dose Given 11/11/2023 3:32 PM CDT 4 mg phenylephrine (YAMILETH-SYNEPHRINE) 1 mg/10mL injection IV Push, INTRA-OP PRN ONCE MAY REPEAT, Starting on Heather 11/11/23 at 1456, Until Heather 11/11/23 at 1546 Given 11/11/2023 3:26 PM CDT 100 mcg Given 11/11/2023 3:15 PM CDT 100 mcg Given 11/11/2023 3:07 PM CDT 100 mcg propofol (DIPRIVAN) 10 mg/mL injection emulsion Intravenous, INTRA-OP PRN ONCE MAY REPEAT, Starting on Heather 11/11/23 at 1443, Until Heather 11/11/23 at 1546 Given 11/11/2023 2:43 PM CDT 170 mg rocuronium bromide (ZEMURON) 10 mg/mL injection IV Push, INTRA-OP PRN ONCE MAY REPEAT, Starting on Heather 11/11/23 at 1443, Until Heather 11/11/23 at 1546 Given 11/11/2023 2:43 PM CDT 50 mg sugammadex (BRIDION) 200 mg/2 mL injection IV Push, INTRA-OP PRN ONCE MAY REPEAT, Starting on Heather 11/11/23 at 1532, Until Heather 11/11/23 at 1546 Given 11/11/2023 3:32 PM CDT 400 mg vancomycin (VANCOCIN) 2,750 mg in NaCl 0.9% IVPB 2,750 mg (rounded from 2,810 mg = 20 mg/kg ? 140.5 kg), Indication (Select One): Infection - Confirmed, SITE (Select all that apply): Skin/Soft Tissue, Cultures Ordered? Yes, Dose By? Phamacist to Dose, Intravenous, Q12H, First dose on Heather 11/11/23 at 0155, Until Discontinued New Bag 11/12/2023 1:40 PM CDT 2,750 mg 183.3 mL/hr New Bag 11/12/2023 2:25 AM CDT 2,750 mg 183.3 mL/hr Bolus 11/11/2023 2:47 PM CDT 2,750 mg documented in this encounter
--- OUTSIDE RECORDS SUMMARY | 2024-02-07 08:55 | XMS_ITS | Encounter Summary ---
Author Organization [facility] Address [address] [place] [address] Phone Care Team Providers Care Veneer Matcher Name Role Phone Unavailable Primary Care Provider Unavailabl e Encounter Details Date Type Department Care Team (Late st Contact Info) Description 11/13/2023 Orders Only Unspecified Department [place] Unknown, [...] Priority Date/Time Associated Diagnosis Comments TELEMETRY STRIPS 11/13/2023 1:52 AM CDT documented in this encounter Results * TELEMETRY STRIPS (11/13/2023 1:52 AM CDT) Narrative 11/13/2023 1:52 AM CDT Ordered by an unspecified provider. 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
--- OUTSIDE RECORDS SUMMARY | 2024-02-07 08:55 | XMS_ITS | Encounter Summary ---
Author Organization [facility][Note 3] Address [address] [place] [address] Phone Care Team Providers Care Help Desk Agent Name Role Phone Unavailable Primary Care [...] Date/Time Associated Diagnosis Comments TELEMETRY STRIPS 11/14/2023 2:37 AM CDT documented in this encounter Results * TELEMETRY STRIPS (11/14/2023 2:37 AM CDT) Narrative 11/14/2023 2:37 AM CDT Ordered by an unspecified provider. 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
--- OUTSIDE RECORDS SUMMARY | 2024-02-07 08:55 | XMS_ITS | Encounter Summary ---
Author Organization [facility] Address [address] [place] [address] Phone Care Team Providers Care Electrochemist Name Role Phone Unavailable Primary Care Provider [...] Date/Time Associated Diagnosis Comments TELEMETRY STRIPS 11/13/2023 4:34 PM CDT documented in this encounter Results * TELEMETRY STRIPS (11/13/2023 4:34 PM CDT) Narrative 11/13/2023 4:34 PM CDT Ordered by an unspecified provider. 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
--- OUTSIDE RECORDS SUMMARY | 2024-02-07 08:55 | XMS_ITS | Encounter Summary ---
Author Organization [facility] Address [address] [place] [address] Phone Care Team Providers Care Tractor Trailer Truck Driver Name Role Phone Unavailable Primary Care [...] Date/Time Associated Diagnosis Comments TELEMETRY STRIPS 11/12/2023 9:35 AM CDT documented in this encounter Results * TELEMETRY STRIPS (11/12/2023 9:35 AM CDT) Narrative 11/12/2023 9:35 AM CDT Ordered by an unspecified provider. 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
--- OUTSIDE RECORDS SUMMARY | 2024-02-07 08:55 | XMS_ITS | Encounter Summary ---
Author Organization [facility] Address [address] [place] [address] Phone Care Team Providers Care Teaching Fellow Name Role Phone Unavailable Primary Care Provider [...] Date/Time Associated Diagnosis Comments TELEMETRY STRIPS 11/13/2023 7:44 AM CDT documented in this encounter Results * TELEMETRY STRIPS (11/13/2023 7:44 AM CDT) Narrative 11/13/2023 7:44 AM CDT Ordered by an unspecified provider. 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
--- OUTSIDE RECORDS SUMMARY | 2024-02-07 08:56 | XMS_ITS | Encounter Summary ---
Author Organization [facility] Address [address] [place] [address] Phone Care Team Providers Care Stock Associate Name Role Phone Unavailable Primary Care Provider Unavailabl e Reason for Visit * Reason Comments Fever Penis/Scrotal Problem Toe Problem * Auth/Cert (Routine) Specialty Diagnoses / Procedures Referred By Katherine t Referred To Contact SURGERY Diagnoses 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HHS) Hyperglycemia Zac Churchill MD [address] [facility] [address] [place] [address] [address] [facility] [address] [place] [address] Referral ID Status Reason Start Date Expiration Date Visits Re quested Visits Authorized [id number] 1 1 Encounter Details Date Type Department Care Team (Late st Contact Info) Description 11/11/2023 2:00 PM CDT - 11/11/2023 3:54 PM CDT Surgery OR P4 [address] [place] [address] Donovan Sloan MD [address] [place] [address] [address] [place], [place] [address] IRRIGATION AND DEBRIDEMENT, PERINEAL WOUND Social History Tobacco Use Types Packs/Day Years Used Date Smoking Tobacco: Never Assessed Sex and Gender Information Value Date Recorded Sex Assigned at Not on file Gender Identity Not on file Sexual Orientation Not on file documented as of this encounter Last Filed Vital Signs Vital Sign Reading Time Taken Comments Blood Pressure 119/80 11/11/2023 3:50 PM CDT Pulse 91 11/11/2023 3:50 PM CDT Temperature 36.5 ??C (97.7 ??F) 11/11/2023 3:45 PM CD T Respiratory Rate 14 11/11/2023 3:50 PM CDT Oxygen Saturation 89% 11/11/2023 3:50 PM CDT Inhaled Oxygen Concentration - - Weight 140.5 kg (309 lb 11.9 oz) 11/10/2023 2:33 PM CDT Height - - Body Mass Index 43.97 11/12/2023 2:06 PM CDT documented in this encounter Discharge Summaries * 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, JAROD, COMMERCIAL TECHNICIAN - 11/25/2023 7:37 AM CDT GENERAL SURGERY DISCHARGE SUMMARY - DEVOPS ARCHITECT Stephanie Low : 1980 Sex: male Date of Admission: 11/10/2023 Date of Discharge: 11/25/2023 Disposition: Group Home Facility Primary care physician: No primary care [...] will follow up with 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 APRN, COMMERCIAL TECHNICIAN Malnutrition Weight: (!) 142.9 kg (315 lb 1.6 oz) Wt Change from Previous: 0 Kg Wt Change from Admit: 2.43 Kg % Wt Change from Adm: 1.73 % Garrett Body Wt (IBW) Male (kg): 75.26 kg [...] oriented x 3. 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 Yes Okay for Group Home Facility standing orders? Question Response Notes OK for Group Home Facility house standing orders? Yes Other Nursing [...] or contraindicated. Resume previous standing orders per halfway policy Order Notes Resume previous standing orders per halfway policy Patient is on a Consistent Carbohydrate [...] 4:30PM, M-F): Call the Surgery Clinic at [phone] After hours or on Holidays: Call the [facility] glost kiln operator . Ask the glost kiln operator to page the general surgery resident commercial pest control technician. IF: -- you feel you are getting [...] -- Read all labels for prescription and Mife-qhf-zhunfwt medicines. Ask the pharmacist if your prescription [...] Your Medications These medications were sent to [facility] Discharge Pharmacy - [place] [id number] Hours: 30/11 insulin LISPRO 100 UNIT/ML Kwikpen [...] plan. 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 APRN, CNP 11/25/2023 07:37 [facility] Department of Surgery Pager: via telemediq I have spent 45 minutes with this patient today in which greater than 50% of this time was spent incounseling/coordination of care regarding in patient care, review of imaging/labs, chart review andconsultant recommendations. Dictation Disclaimer: Some notes are completed with voice-recognition dictation software. Errors are generally corrected in real time. Please contact me via [employer] staff message if you note any [...] - Resources for patient (select all that apply):[id number]} documented in this encounter Medications at Time [...] the discharge summary paperwork with medication orders. Embedded Hardware Engineer opened admission encounter and re-faxed discharge paperwork to the provided fax # of [phone]. Tried a second fax # after this wasn't received, which also wasn't received. Third attempt made viaencrypter email. Confirmed received paperwork via encrypted email. Pepe Hernandez RN, 11/25/2023 9:33 PM ED Clinical Coordinator Office: [phone] TelMedIQ: ED Clinical Coordinator * Kate Harmon [...] (Arrive by 12:50 PM) with Dr Palomo ([facility] since he is discharging to [place].Follows with [facility] when closer to home otherwise. 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 Interval History Patient was [...] CDT Preadmission Screening Submitter InformationPerson Being ReferredMedical InformationADLStony Brook Eastern Long Island HospitalSubmitResults Results Thank you for submitting a [...] help, contact the Senior LinkAge Line at [phone] or click to contact us. Print this page You have successfully submitted the preadmission screening (PAS) to the Senior LinkAge Line on: Created On 11/24/2023 2:25 PM Your confirmation number is: [id number] Results Level of Care: Based on the information you provided, it appears this person meets level of care for purposes of [place] payment. OBRA: It appears this person does not need an OBRA Level II assessment. Submitter Information Form Type PAS Submitter First and Last Name Caridad Dorsey Direct Agency [facility] [address] [place] [address] [place] [address] Is your Agency [place]? Person Being Admitted to Nursing Facility Legal first name Matt Last name Stephanie Date of 1980 Age 43 Gender Male Marital Status N= Never Race A = B = Black or N = or [place] P = [place] or W = White U = Unable to Determine Ethnicity Not / Currently living with: 01 Living Alone Planned living with 04 Living in Congregate Setting Housing Type Home or apartment, including assisted living (09) Mailing Address [address] [place] [address] [place] [address] [facility] Medical Information Reason for nursing facility admission: [...] facility the person will admit to?Yes Provider [facility] Nursing Facility Nursing Facility Service Type Fdc [address] Zip Code [address] [place] [address] If your provider is not listed check [...] follow-up. Did not ask * 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, TIME CLOCK MECHANIC, COMMERCIAL TECHNICIAN - 11/24/2023 1:43 PM CDT SURGERY PROGRESS NOTE--DEVOPS ARCHITECT Stephanie Low : 1980 Sex: male SIGNIFICANT [...] (L) 11/23/2023 0831 HCT 31.5 (L) 11/23/2023 08 PLT 492 (H) 11/23/2023 0831 ASSESSMENT: Matt [...] for discharge. Planning on discharge today to [facility] pending insurance approval. PLAN: Neuro/Pain Control: [...] Trend WBCs and fever Skin/Wounds: Perineal debridement hapc-ogx-ct-dry dressings with Vashe; Left hallux amputation -Betadine with 4 x 4 DVT prophylaxis: Lovenox and SCDs Weight Bearing: Heel touch WB in surgical shoe. On the LLW Activity: Ad celia PT/OT: Appreciate Recs Disposition: [facility] on 11/24/23 pending insurance authorization 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 APRN, CNP, 11/24/2023 1:43 PM [facility] Department of Surgery Pager: via telemediq I have spent 30 minutes with this patient today in which greater than 50% of this time was spent incounseling/coordination of care regarding in patient care, review of imaging/labs, chart review andconsultant recommendations. Dictation Disclaimer: Some notes are completed with voice-recognition dictation software. Errors are generally corrected in real time. Please contact me via [employer] staff message if you note any [...] () of patient departure: 11/25/2023@1030 Destination: [address] Type of ride: [employer] #conformation [phone] Transportation vendor of ride (choose one below):* [facility] [phone] If this ride needs to be [...] Clinical Coordinators will be informed via a TelVitrueq page. PCS form was completed in Progress [...] sex Attending provider: Zac Churchill MD Insurance: [facility] Secondary insurance: [place] [employer] Height: Height: 180.3 cm (5' [...] Self care/Home mgmt/ADL: 18 minutes Chayo Townsend OTR/Brian Pager: Reebee OT Department Problem: Loss of Gove With ADLs, Risk for Goal: Will complete lower body dressing Description: Patient will complete lower body dressing with Modified Gove (6). Outcome: In progress Goal: Will toilet self Description: Patient will toilet self with Modified Gove (6). Outcome: In progress * Lior Azul [...] Selected Services Address Phone Fax Patient Preferred [facility] Selected Group Home [address] [facility] [phone] -- Internal Comment last updated by Lior Azul 11/24/2023 0805 Pending prior auth. Lior Azul, 11/24/2023 8:05 AM Received VM saying they would accept . LVM saying we would accept bed.. Caridad Dorsey, 11/24/2023 7:50 AM Admissions is currently reviewing .Caridad Dorsey, 11/23/2023 9:31 AM No bd available until next week. Caridad Dorsey, 11/18/2023 8:34 AM [facility], [facility] ([facility]) Accepted N/A [address] [facility] [address] [phone] -- Internal Comment last updated by Lior Azul 11/24/2023 0840 They can offer us a bed here but we already found one in [place]. Lior Azul, 11/24/2023 8:[address] [facility] Pending - Request Sent N/A [address] [facility] [address] [phone] -- Internal Comment last updated by Caridad Dorsey 11/23/2023 0937 LVM for admissions .Caridad Dorsey, 11/23/2023 9:37 AM [facility] Declined Current smoking, Bariatric N/A [address] [facility] [address] [phone] -- The [facility] [place] [facility] Declined Distance N/A [address] [address] [phone] -- Internal Comment last updated by Lior Azul 11/22/2023 1212 This is too far from where patient lives. Lior Azul, 11/22/2023 12:18 PM Sent e mail to Allie .Caridad Dorsey, 11/22/2023 8:10 AM LVM for admissions .Caridad Dorsey, 11/19/2023 7:44 AM Sent email to Missy.Caridad Dorsey, 11/17/2023 2:24 PM [facility] Declined No Contract with Patient's Insurance Carrier N/A [address] [place] [address] [phone] -- [facility] Declined Current smoking, Acuity too high N/A [address] [facility] [address] [phone] -- Internal Comment last updated by Caridad Dorsey 11/18/2023 0831 LVM for admissions.Caridad Dorsey, 11/18/2023 8:31 AM Nena Ernandez, [facility] Declined Bed not available N/A [address] [facility] [address] [phone] -- Internal Comment last updated by Lior Azul 11/23/2023 1415 Looking for a bed in the [facility] .Caridad Dorsey, 11/23/2023 9:35 AM LVM for admissions.Caridad Dorsey, 11/19/2023 8:17 AM LVM for admissions.Caridad Dorsey, 11/18/2023 8:37 AM [facility] Declined Bed not available N/A [address] [facility] [address] [phone] -- The [facility], [facility] Declined Bed not available N/A [address] [facility] [address] [phone] -- [facility] [place] [facility] Declined Bed not available N/A [address] [facility] [address] [phone] -- Home Medical Care No active coordination exists for this encounter. * 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, JAROD, PATRICIA - 11/23/2023 3:06 PM CDT SURGERY PROGRESS NOTE--DEVOPS ARCHITECT Stephanie Low : 1980 Sex: male SIGNIFICANT [...] Results Component Value Date/Time NA 137 11/23/2023 08 K 5.1 11/23/2023830 CHLORIDE 103 11/23/2023 08 CO2 24 11/23/2023830 GLU 192 (H) 11/23/2023830 UN 20 11/23/2023830 CR 1.96 (H) 11/23/2023830 CA 8.5 (L) 11/23/2023830 CBC Lab Results [...] Trend WBCs and fever Skin/Wounds: Perineal debridement mvdg-emi-lw-dry dressings with Vashe; Left hallux amputation -Betadine with 4 x 4 DVT prophylaxis: Lovenox and SCDs Weight Bearing: Heel touch WB in surgical shoe. On the LLW Activity: Ad celia PT/OT: Appreciate Recs Disposition: Postacute placement recommended-care management and social work looking for a TCU. 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 APRN, PATRICIA, 11/23/2023 3:06 PM [facility] Department of Surgery Pager: via telemediq I have spent 30 minutes with this patient today in which greater than 50% of this time was spent incounseling/coordination of care regarding in patient care, review of imaging/labs, chart review andconsultant recommendations. Dictation Disclaimer: Some notes are completed with voice-recognition dictation software. Errors are generally corrected in real time. Please contact me via [employer] staff message if you note any [...] Selected Services Address Phone Fax Patient Preferred [facility] Pending - Request Sent N/A [address] [facility] [phone] -- Internal Comment last updated by Caridad Dorsey 11/23/2023 0931 Admissions is currently reviewing .Caridad Dorsey, 11/23/2023 9:31 AM No bd available until next week. Caridad Dorsey, 11/18/2023 8:34 AM Nena Dionicio, A [place] [facility] Pending - Request Sent N/A [address] [facility] [address] [phone] -- Internal Comment last updated by Lior Azul 11/23/2023 1415 Looking for a bed in the [facility] .Caridad Dorsey, 11/23/2023 9:35 AM LVM for admissions.Caridad Dorsey, 11/19/2023 8:17 AM LVM for admissions.Caridad Dorsey, 11/18/2023 8:[address] [facility] Pending - Request Sent N/A [address] [facility] [address] [phone] -- Internal Comment last updated by Caridad Dorsey 11/23/2023 0937 LVM for admissions .Caridad Dorsey, 11/23/2023 9:37 AM [facility] Declined Current smoking, Bariatric N/A [address] [facility] [address] [phone] -- [facility] [place] [facility] Declined Distance N/A [address] [address] [phone] -- Internal Comment last updated by Lior Azul 11/22/2023 1218 This is too far from where patient lives. Lior Azul, 11/22/2023 12:18 PM Sent e mail to Allie .Caridad Dorsey, 11/22/2023 8:10 AM LVM for admissions .Caridad Dorsey, 11/19/2023 7:44 AM Sent email to Missy.Caridad Dorsey, 11/17/2023 2:24 PM [facility] Declined No Contract with Patient's Insurance Carrier N/A [address] [place] [id number] -- [facility] Declined Current smoking, [place] [address] [facility] [address] [phone] -- Internal Comment last updated by Caridad Dorsey 11/18/2023 0831 LVM for admissions.Caridad Dorsey, 11/18/2023 8:31 AM [facility] Declined Bed not available N/A [address] [facility] [address] [phone] -- [facility], [facility] Declined Bed not available N/A [address] [facility] [address] [phone] -- The [facility] Declined Bed not available N/A [address] [facility] [address] [phone] -- Home Medical Care No active coordination exists for this encounter. * Caridad Dorsey - 11/23/2023 9:42 AM CDT Continued Care and Services - Admitted Since 11/10/2023 Destination Service Provider Request Status Selected Services Address Phone Fax Patient Preferred [facility] Pending - Request Sent N/A [address] [facility] [phone] -- Internal Comment last updated by Caridad Dorsey 11/23/2023 0931 Admissions is currently reviewing .Caridad Dorsey, 11/23/2023 9:31 AM No bd available until next week. Caridad Dorsey, 11/18/2023 8:34 AM N[facility] Ernandez, A [place] [facility] Pending - Request Sent N/A [address] [facility] [address] [phone] -- Internal Comment last updated by Caridad Dorsey 11/23/2023 0935 Looking for a bed in the [facility] .Caridad Dorsey, 11/23/2023 9:35 AM LVM for admissions.Caridad Dorsey, 11/19/2023 8:17 AM LVM for admissions.Caridad Dorsey, 11/18/2023 8:37 AM [facility] [place] [facility] Pending - Request Sent N/A [address] [facility] [address] [phone] -- [facility] Pending - Request Sent N/A [address] [facility] [address] [phone] -- Internal Comment last updated by Caridad Dorsey 11/23/2023 0937 LVM for admissions .Caridad Dorsey, 11/23/2023 9:37 AM [facility] Declined Current smoking, Bariatric N/A [address] [facility] [address] [phone] -- [facility], [facility] [place] [facility] Declined Distance N/A [address] [address] [phone] -- Internal Comment last updated by Lior Azul 11/22/2023 1218 This is too far from where patient lives. Lior Azul, 11/22/2023 12:18 PM Sent e mail to Allie .Caridad Dorsey, 11/22/2023 8:10 AM LVM for admissions .Caridad Dorsey, 11/19/2023 7:44 AM Sent email to Missy.Caridad Dorsey, 11/17/2023 2:24 PM [facility] Declined No Contract with Patient's Insurance Carrier N/A [address] [place] [address] [phone] -- [facility] Declined Current smoking, [place] [address] [facility] [id number] -- Internal Comment last updated by Caridad Dorsey 11/18/2023 0831 LVM for admissions.Caridad Dorsey, 11/18/2023 8:31 AM [facility] Declined Bed not available N/A [address] [facility] [address] [phone] -- The [facility], [facility] Declined Bed not available N/A [address] [facility] [address] [phone] -- Home Medical Care No active coordination exists for this encounter. * Chayo Townsend, OTR/Brian - 11/22/2023 2:56 PM CDT Occupational [...] mgmt/ADL: 13 minutes Chayo Townsend OTR/L Pager: Reebeeleena OT Department Problem: Loss of Gove With ADLs, Risk for Goal: Will complete lower body dressing Description: Patient will complete lower body dressing with Modified Gove (6). Outcome: In progress Goal: Will toilet self Description: Patient will toilet self with Modified Gove (6). Outcome: In progress * Arden Elena [...] gait with or without AD, static/dynamic balance. TARGETING ACQUISITION OFFICER Appropriate: Yes Arden Elena PTA 11/22/2023 Pager: Lisa PT Dept Problem: Decreased Transfer Skills Goal: Patient will transfer sit to/from stand Description: Patient will transfer sit to/from stand while Heel touch WB on L LE in post-op shoe with (6) Modified Gove in order to mobilize in home by [...] 12:09 PM CDTSummary: DC Planning DC Planning [facility] Minnie RN - O: [phone] Intermediate RN is calling her asking her when [...] agrees with sending referrals to SNFs around [place]. He wants CC to let sister know as well. CC called sister. No answer. LVM. Lior Azul, 11/22/2023 2:41 PM * Nico Hogue MD - 11/22/2023 9:13 AM CDT SURGERY PROGRESS NOTE--PGY1 Matt Thibodeaux [...] (L) 11/21/2023 0452 PLT 510 (H) 11/21/2023 0452 MCV 89.4 11/21/2023 0452 MCH 28.0 11/21/2023 0452 MCHC 31.4 11/21/2023 0452 RDW 14.6 (H) 11/21/2023 0452 MPV 9.1 11/21/2023 0452 NEUTNO 6.51 (H) [...] bedtime. -Continue Amlodipine 10mg Daily - Resume TARGETING ACQUISITION OFFICER losartan 50mg PO Daily when Cr is closer to baseline (1.0) Acute Kidney Injury Monitor urine output and BMP closely. Paranoid schizophrenia - continue radio division captain escitalopram 20mg qhs, trazodone 50mg qhs, prazosin 1mg qhs (ordered) - receives outpatient paliperidone (Invega) IM every 4 weeks for schizophrenia at [facility], unclear when last dose was. Would give [...] the patient on the date of the typewriters functional tester's note. I discussed with the typewriters functional tester of the note and agree with their findings and plan documented in the typewriters functional tester's note from above. Any revisions by me are documented. Zac Churchill MD, 11/23/2023 8:18 AM * Nicola Vasquez MD - 11/21/2023 12:31 PM CDT SURGERY PROGRESS NOTE--PGY1 Matt MEYER: 1980 Sex: male SIGNIFICANT EVENTS IN THE PAST 24 HRS: [place] SUBJECTIVE: Pt reports doing well. Is asking [...] (L) 11/21/2023 0452 PLT 510 (H) 11/21/2023 0452 MCV 89.4 11/21/2023 0452 MCH 28.0 11/21/2023 [...] bedtime. -Continue Amlodipine 10mg Daily - Resume TARGETING ACQUISITION OFFICER losartan 50mg PO Daily when Cr is closer to baseline (1.0) Acute Kidney Injury Monitor urine output and BMP closely. Paranoid schizophrenia - continue radio division captain escitalopram 20mg qhs, trazodone 50mg qhs, prazosin 1mg qhs (ordered) - receives outpatient paliperidone (Invega) IM every 4 weeks for schizophrenia at [facility], unclear when last dose was. Would give [...] demar's gangrene. Medicine was consulted by Dr. Churhcill for: Diabetes management, antibiotic selection I spoke [...] are above goal here (FPG goal <150). TARGETING ACQUISITION OFFICER lantus 30 units BID, lispro 10 units TID AC, metformin 500mg BID. A1c 6.8% on 07/27/23. Complications include h/o diabetes related infections. Hold TARGETING ACQUISITION OFFICER metformin while admitted. Continue statin. 11/12 got 25u lantus (<0.2/kg) and 35u aspart. Likely needs increase in insulin dosing but also use caution with impaired renal clearance / worsening renal function and this can contribute to hypoglycemia. Serum glucose levels are slightly improved on TARGETING ACQUISITION OFFICER regimen of 30 U daily Lantus. Serum [...] by facility provider. Paranoid schizophrenia - restarted TARGETING ACQUISITION OFFICER meds (escitalopram 20mg qhs, trazodone 50mg qhs, [...] outpatient on 11/25 or 2 Resume patient's TARGETING ACQUISITION OFFICER losartan 50mg PO daily when Cr is closer to baseline (approx 1.0) Strict I/O, monitor UOP. Avoid nephrotoxins (IV contrast, NSAIDs), renal dosing of meds Medicine service will sign off. Please page Hospitalist Consult A on telmediq for any further issues or questions. SUBJECTIVE/Events of Past 24 Hours: Hospital Day: 11 Mr Low feels well today. Denies any symptoms. Pain controlled. He believes postoperative dressing changes can be done by his current senior care; I encouraged him to discuss that with his primary team and correctional case manager. Amenable to plan, looking forward to leaving [...] Leyva MD Hospital Medicine * Paula Black DPMorelia - 11/21/2023 5:58 AM CDT Images from [...] from our standpoint. Patient follows with Dr Hayedn in [facility] and would prefer to follow up with him upon discharge. We are happy to schedule anappointment with patient if he wishes to follow up with our team. 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 Interval History Patient was [...] 1:28 PM CDT SURGERY PROGRESS NOTE--PGY1 Matt Keyzena : [...] 0818 MCH 28.4 11/20/2023 0818 MCHC 31.8 11/20/202318 RDW 14.3 11/20/2023817 MPV 9.2 11/20/2023817 NEUTNO 6.51 (H) 11/20/2023817 LYMPHAB 2.07 11/20/2023817 [...] and BMP closely. Paranoid schizophrenia - continue radio division captain escitalopram 20mg qhs, trazodone 50mg qhs, prazosin 1mg qhs (ordered) - receives outpatient paliperidone (Invega) IM every 4 weeks for schizophrenia at [facility], unclear when last dose was. Would give [...] are above goal here (FPG goal <150). TARGETING ACQUISITION OFFICER lantus 30 units BID, lispro 10 units TID AC, metformin 500mg BID. A1c 6.8% on 07/27/23. Complications include h/o diabetes related infections. Hold TARGETING ACQUISITION OFFICER metformin while admitted. Continue statin. 11/12 got 25u lantus (<0.2/kg) and 35u aspart. Likely needs increase in insulin dosing but also use caution with impaired renal clearance / worsening renal function and this can contribute to hypoglycemia. Serum glucose levels are slightly improved on TARGETING ACQUISITION OFFICER regimen of 30 U daily Lantus. Serum glucose levels better controlled today and more consistent in the 126 - 165 range. Continue current dosing for now with monitoring of serum glucose levels. Paranoid schizophrenia - restarted TARGETING ACQUISITION OFFICER meds (escitalopram 20mg qhs, trazodone 50mg qhs, prazosin 1mg qhs). Given paliperidone (Invega) IM on 11/12/23 (due every 4 weeks for schizophrenia) Tobacco use - offer nicotine patches, gum, lozenges while inpatient H/o TBI Obesity RECOMMENDATIONS 11/15/23 Continue Lantus to 30 U qd Continuing amlodipine, monitoring BP to determine if second agent needed with recent improvement Resume patient's TARGETING ACQUISITION OFFICER losartan 50mg PO daily when Cr is closer to baseline (likely ~1.0) Strict I/O, monitor UOP. Avoid nephrotoxins (IV contrast, NSAIDs), renal dosing of meds Medicine service will sign off tomorrow 11/20 if clinical stability/improvement continues. Please page Hospitalist Consult A on [employer] for any further issues or questions. SUBJECTIVE/Events [...] today 11/19. Labs reviewed Scar Leyva MD [facility] Medicine * Scar Leyva MD - 11/19/2023 [...] are above goal here (FPG goal <150). TARGETING ACQUISITION OFFICER lantus 30 units BID, lispro 10 units TID AC, metformin 500mg BID. A1c 6.8% on 07/27/23. Complications include h/o diabetes related infections. Hold TARGETING ACQUISITION OFFICER metformin while admitted. Continue statin. 11/12 got 25u lantus (<0.2/kg) and 35u aspart. Likely needs increase in insulin dosing but also use caution with impaired renal clearance / worsening renal function and this can contribute to hypoglycemia. Serum glucose levels are slightly improved on TARGETING ACQUISITION OFFICER regimen of 30 U daily Lantus. One reading of 69 yesterday - unclear if patient had any symptoms. Continue current dosing for now with monitoring of serum glucose levels. Paranoid schizophrenia - restarted TARGETING ACQUISITION OFFICER meds (escitalopram 20mg qhs, trazodone 50mg qhs, prazosin 1mg qhs). Given paliperidone (Invega) IM on 11/12/23 (due every 4 weeks for schizophrenia) Tobacco use - offer nicotine patches, gum, lozenges while inpatient H/o TBI Obesity RECOMMENDATIONS 11/15/23 Continue Lantus to 30 U qd Continuing amlodipine, monitoring BP to determine if second agent needed with recent improvement Resume patient's TARGETING ACQUISITION OFFICER losartan 50mg PO daily when Cr is closer to baseline (likely ~1.0) Strict I/O, monitor UOP. Avoid nephrotoxins (IV contrast, NSAIDs), renal dosing of meds Medicine will continue to follow. Please page Hospitalist Consult A on [employer] for any further issues or questions. SUBJECTIVE/Events [...] today 11/18. Labs reviewed Scar Leyva MD [facility] Medicine * Kenrick Fisher Chi, PT - 11/19/2023 1:21 PM CDT Physical Therapy Patient not seen today d/t prioritisation/time constraints. Kenrick Fisher, PT License #[id number] PT Tel #: [phone] On [employer] or [employer] * Nicola Vasquez MD - 11/19/2023 11:54 [...] change daily and PRN by nursing Necrotizing fascitis/Edmar's gangrene s/p debridement Left hallux gangrene s/p [...] 2/2 uncontrolled Td2m. Paranoid schizophrenia - continue radio division captain escitalopram 20mg qhs, trazodone 50mg qhs, prazosin 1mg qhs (ordered) - receives outpatient paliperidone (Invega) IM every 4 weeks for schizophrenia at [facility], unclear when last dose was. 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 male pmhx of T2DM with prior right toe amputations [facility], s/p I&D x [...] 1 of 2 Imaging results: Reviewed in [facility] Gulshan José MD ID fellow, [...] RN - 11/19/2023 10:39 AM CDT 11/19/23 [facility] Rapid Rounds Attendance Charge nurse;bench manager;welfare case worker Expected Discharge Disposition SNF (TCU) Today [...] each: Self care/Home mgmt/ADL: 23 minutes Chayo Townsend OTR/L Pager: [facility] OT Department Problem: Loss of Gove With ADLs, Risk for Goal: Will complete lower body dressing Description: Patient will complete lower body dressing with Modified Gove (6). Outcome: In progress Goal: Will toilet self Description: Patient will toilet self with Modified Gove (6). Outcome: In progress * Paula Black [...] standpoint. Patient follows with Dr Hayden in [facility] and would prefer to follow up with him upon discharge. We are happy to schedule anappointment with patient if he wishes to follow up with our team. 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 Interval History Patient was [...] care/Home mgmt/ADL: 35 minutes EDWIN Alvarado/Brian Pager: Lisa OT Department Problem: Loss of Gove With ADLs, Risk for Goal: Will complete lower body dressing Description: Patient will complete lower body dressing with Modified Gove (6). Outcome: In progress Goal: Will toilet self Description: Patient will toilet self with Modified Gove (6). Outcome: In progress * Kenrick Fisher Chi, PT - 11/18/2023 3:23 PM CDT Problem: Decreased Transfer Skills Goal: Patient will transfer sit to/from stand Description: Patient will transfer sit to/from stand while Heel touch WB on L LE in post-op shoe with (6) Modified Gove in order to mobilize in home by [...] up. Reconfirmed that [facility] an [facility]- a [facility] building. Has his own room w a toilet inside. He shares bathing facilities wother residents in the house. He eats his meals and snacks in the dining room. He has NO stairs to negotiate. 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 TARGETING ACQUISITION OFFICER Appropriate: Yes Kenrick Fisher, PT 11/18/2023 Pager: [...] are above goal here (FPG goal <150). TARGETING ACQUISITION OFFICER lantus 30 units BID, lispro 10 units TID AC, metformin 500mg BID. A1c 6.8% on 07/27/23. Complications include h/o diabetes related infections. Hold TARGETING ACQUISITION OFFICER metformin while admitted. Continue statin. 11/12 got 25u lantus (<0.2/kg) and 35u aspart. Likely needs increase in insulin dosing but also use caution with impaired renal clearance / worsening renal function and this can contribute to hypoglycemia. Serum glucose levels are slightly improved today with increase in Lantus to 28 U; increasing today to TARGETING ACQUISITION OFFICER dose of 30 U Lantus daily. Paranoid schizophrenia - restarted TARGETING ACQUISITION OFFICER meds (escitalopram 20mg qhs, trazodone 50mg qhs, prazosin 1mg qhs). Given paliperidone (Invega) IM on 11/12/23 (due every 4 weeks for schizophrenia) Tobacco use - offer nicotine patches, gum, lozenges while inpatient H/o TBI Obesity RECOMMENDATIONS 11/15/23 Increased Lantus to 30 U qd Continuing amlodipine, carvedilol discontinued as patient noted some dizziness and BP now near goal. Resume patient's TARGETING ACQUISITION OFFICER losartan 50mg PO daily when Cr is closer to baseline (likely ~1.0) Strict I/O, monitor UOP. Avoid nephrotoxins (IV contrast, NSAIDs), renal dosing of meds Medicine will continue to follow. Please page Hospitalist Consult A on [employer] for any further issues or questions. SUBJECTIVE/Events of Past 24 Hours: Hospital Day: 8 Mr Low feels good today; more relaxed. Pain controlled. Hoping for discharge soon; he's curiousif his sister might be able to take him home tomorrow, or potentially to a facility (?[facility]?) for extra cares and assistance OBJECTIVE: Blood [...] today 11/17. Labs reviewed Scar Leyva MD [facility] Medicine * Jabari Colby RN - 11/18/2023 [...] Services Address Phone Fax Patient Preferred [facility], A [place] [facility] Pending - Request Sent N/A [address] [address] [phone] -- Internal Comment last updated by Caridad Dorsey 11/19/2023 0745 LVM for admissions .Caridad Dorsey, 11/19/2023 7:44 AM Sent email to [place].Caridad Dorsey, 11/17/2023 2:24 PM [facility], A [place] [facility] Pending - Request Sent N/A [address] [facility] [address] [phone] -- Internal Comment last updated by Caridad Dorsey 11/19/2023 0818 LVM for admissions.Caridad Dorsey, 11/19/2023 8:17 AM LVM for admissions.Caridad Dorsey, 11/18/2023 8:37 AM [facility] Declined N/A [address] [facility] [address] -- [facility] Declined No Contract with Patient's Insurance Carrier N/A [address] [place] [address] [phone] -- [facility] Declined Current smoking, Acuity too high N/A [id number] [facility] [address] [phone] -- Internal Comment last updated by Caridad Dorsey 11/18/2023 0831 LVM for admissions.Caridad Dorsey, 11/18/2023 8:31 AM [facility] Declined Bed not available N/A [id number] [facility] [address] -- Internal Comment last updated by Caridad Dorsey 11/18/2023 0834 No bd available until next week. Caridad Dorsey, 11/18/2023 8:34 AM [facility] Declined Bed not available N/A [address] [facility] [address] -- Home Medical Care No active coordination exists for this encounter. * Arteha Damon MD - 11/18/2023 8:26 AM CDT ID PROGRESS NOTE Matt Low 1980 Male [id number] ASSESSMENT: # Necrotizing fascitis/Demar's gangrene s/p debridement # Left hallux gangrene s/p amputation # Type II diabetes mellitus 43 y.o. male pmhx of T2DM with prior right toe amputations transferred from [facility] forurnier's gangrene, s/p I&D x 2, currently [...] 11/17/[address] Mullen-operative note available in [facility] Seen this a.m. and was quite sleepy. [...] 1 of 2 Imaging results: Reviewed in [facility] Gulshan José MD, 11/18/2023 8:26 [...] standpoint. Patient follows with Dr Hayden in [facility] and would prefer to follow up with him upon discharge. We are happy to schedule anappointment with patient if he wishes to follow up with our team. 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 Patient was discussed with commercial pest control technician staff, Interval History Patient was seen and [...] Abdomen soft, non-tender, non-distended. Labs / Imaging: [facility] Lab Results Component Value Date/Time NA 137 [...] urine output closely. Paranoid schizophrenia - continue radio division captain escitalopram 20mg qhs, trazodone 50mg qhs, prazosin 1mg qhs (ordered) - receives outpatient paliperidone (Invega) IM every 4 weeks for schizophrenia at [facility], unclear when last dose was. Would give [...] 11/10/2023 as a transfer from [facility] for emergent surgical debridement for demar's [...] renal dysfunction, though UOP is acceptable. Holding TARGETING ACQUISITION OFFICER losartan 50mg daily. Started amlodipine 10 mg [...] are above goal here (FPG goal <150). TARGETING ACQUISITION OFFICER lantus 30 units BID, lispro 10 units TID AC, metformin 500mg BID. A1c 6.8% on 07/27/23. Complications include h/o diabetes related infections. Hold TARGETING ACQUISITION OFFICER metformin while admitted. Continue statin. 11/12 got [...] and diet improve. Paranoid schizophrenia - restarted TARGETING ACQUISITION OFFICER meds (escitalopram 20mg qhs, trazodone 50mg qhs, prazosin 1mg qhs). Given paliperidone (Invega) IM on 11/12/23 (due every 4 weeks for schizophrenia) Tobacco use - offer nicotine patches, gum, lozenges while inpatient H/o TBI Obesity RECOMMENDATIONS 11/15/23 Continue Lantus 28 U daily for now; may need to continue titration as diet and renal function improve Began carvedilol and amlodipine as above Resume patient's TARGETING ACQUISITION OFFICER losartan 50mg PO daily when Cr is [...] reviewed Scar Leyva MD Hospital Medicine * Violet Amaury Brian - 11/17/2023 2:54 PM CDT Pharmacy [...] check back tomorrow. Shannan Partida OTR/Brian Pager: [phone] * Mabel Mathews RN - 11/17/2023 11:27 AM CDT TRANSFER IN NOTE D: Patient transferred in to STNU 2 from PACU at 1100. Patient condition on arrival: Stable, a/o X4, VSS, on RA, . Patient Belonging 11/10/2023 1440 Reason for Inventory: ED/APS Admission Patient or family informed of Patient Valuables and Belongings Policy (#[id number]): Due to patient condition, [facility] staff will inventory and secure [...] AM CDT 11/17/231033 Rapid Rounds Attendance Physician;Charge nurse;bench manager;welfare case worker;Bedside nurse Expected Discharge Disposition SNF (TCU for wound care) Today we still await: Procedure (Comment) (toe amputation today) Case Management Discharge Milestones Documentation CM Assessment Completed? Yes Patient/Family agree w/DC plan? Yes Transportation Plan WC/Taxi/Stretcher Prior Auth/Pre-Admit Screen (!) Not completed 11/17/231033 Rapid Rounds Attendance Physician;Charge nurse;bench manager;welfare case worker;Bedside nurse Expected Discharge Disposition SNF (TCU for wound care) Today we still await: Procedure (Comment) (toe amputation today) Case Management Discharge Milestones Documentation CM Assessment Completed? Yes Patient/Family agree w/DC plan? Yes Transportation Plan WC/Taxi/Stretcher Prior Auth/Pre-Admit Screen (!) Not completed Pt will DC to TCU, as his senior care cannot do the daily dressing changes to [...] discharge. Patient follows with Dr Hayden in [facility] CHIEF COMPLAINT: Immediate postop HISTORY OF [...] SIGNIFICANT EVENTS IN THE PAST 24 HRS: NAECHAZ, NPO since midnight for toe amputation at [...] urine output closely. Paranoid schizophrenia - continue radio division captain escitalopram 20mg qhs, trazodone 50mg qhs, prazosin 1mg qhs (ordered) - receives outpatient paliperidone (Invega) IM every 4 weeks for schizophrenia at [facility], unclear when last dose was. Would give [...] Fisher, PT License #[id number] PT Tel #: [phone] On [employer] or [employer] * Nico Hogue MD - 11/16/2023 9:49 [...] Actinomyces species Medicine consult (11/14): Resume patient's TARGETING ACQUISITION OFFICER losartan 50mg PO daily when Cr is [...] urine output closely. Paranoid schizophrenia - continue radio division captain escitalopram 20mg qhs, trazodone 50mg qhs, prazosin 1mg qhs (ordered) - receives outpatient paliperidone (Invega) IM every 4 weeks for schizophrenia at [facility], unclear when last dose was. Would give dose here if due and if available on formulary. Tobacco use - offer nicotine patches, gum, lozenges while inpatient - cessation counseling as able Neuro/Pain Control: Multimodal -Scheduled: Tylenol, Gabapentin, cyclobenzaprine, Lexapro, Trazodone -PRN: Hydromorphone Skin/Wounds: Dressing changed (11/13) DVT prophylaxis: SCDs, Lovenox 40 BID (11/11) Weight Bearing: WBAT Activity: Ad celia/with assist Disposition: Nico Murrya MD, 11/16/2023 9:49 AM PGY-1 General Surgery [...] are above goal here (FPG goal <150). TARGETING ACQUISITION OFFICER lantus 30 units BID, lispro 10 units TID AC, metformin 500mg BID. A1c 6.8% on 07/27/23. Complications include h/o diabetes related infections. Hold TARGETING ACQUISITION OFFICER metformin while admitted. Continue statin. 11/12 got [...] renal dysfunction, though UOP is acceptable. Holding TARGETING ACQUISITION OFFICER losartan 50mg daily. Agree with prn hydralazine but would changeto PO. Could start new agent (such as amlodipine) but patient should ultimately resume ARB once renal function is improved Paranoid schizophrenia - restarted TARGETING ACQUISITION OFFICER meds (escitalopram 20mg qhs, trazodone 50mg qhs, prazosin 1mg qhs). Given paliperidone (Invega) IM on 11/12/23 (due every 4 weeks for schizophrenia) Tobacco use - offer nicotine patches, gum, lozenges while inpatient H/o TBI Obesity RECOMMENDATIONS 11/15/23 Continue Lantus 28 U daily for now; may need to continue titration as diet and Resume patient's TARGETING ACQUISITION OFFICER losartan 50mg PO daily when Cr is [...] follow. Please page Hospitalist Consult A on [employer] for any further issues or questions. 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 11/15/2023 1400 by Chayo Townsend OTR/L Outcome: In progress 11/15/2023 1357 by Chayo Townsend OTR/L Outcome: In progress Goal: Will toilet self Description: Patient will toilet self with Modified Gove (6). 11/15/2023 1400 by Chayo Townsend OTR/L Outcome: In progress 11/15/2023 1357 by Chayo Townsend OTR/L Outcome: In progress * Kenrick Fisher Chi, PT - 11/15/2023 11:23 AM CDT Images from the original note were not included. Problem: Decreased Transfer Skills Goal: Patient will transfer sit to/from stand Description: Patient will transfer sit to/from stand with (6) Modified Gove in order to mobilize in home by 11/28/23. Outcome: In progress Problem: Decreased Ambulatory Skills Goal: Improve gait Description: Ambulate 100 meters using No assistive devices with (6) Modified Gove in orderto mobilize in home and community [...] transfer supine to/from sit with (6) Modified Gove in order to mobilize in/out of bed by 11/28/23. Outcome: Met Physical Therapy Progress Note PT Discharge Recommendations Discharge Recommendations: Safety risk for discharge home today. Barriers to discharge to home/community: Insufficient activity tolerance;Pain;Caregiver availability not yet confirmed. Would be good if someone from the treatment team calls his [facility] to see how much help he can [...] kind of help he gets/can get from [facility] staff and if he needs to do [...] vs try no AD. Try stairs eventually? TARGETING ACQUISITION OFFICER Appropriate: Yes Kenrick Fisher, PT 11/15/2023 Pager: Lisa PT Dept * Jay Ibanez MD - [...] Actinomyces species Medicine consult (11/14): Resume patient's TARGETING ACQUISITION OFFICER losartan 50mg PO daily when Cr is [...] urine output closely. Paranoid schizophrenia - continue radio division captain escitalopram 20mg qhs, trazodone 50mg qhs, prazosin 1mg qhs (ordered) - receives outpatient paliperidone (Invega) IM every 4 weeks for schizophrenia at [facility], unclear when last dose was. Would give [...] Crawford LGSW - 11/15/2023 9:39 AM CDT [employer] Developer Progress Note Spoke to SABINE Hartman at [facility], where patient resides. Informed her pt will likely be ready for discharge towards the end of the week per MDR. Asked if they are able to assist with daily wound care. Unfortunately facility cannot help with this. The facility helps with med management, meals, housekeeping, and laundry. May have to explore options for home health or TCU for woundcare. [facility] - [phone] opt 3. Dominga Crawford LGSW, 11/15/2023 2:59 [...] pt may be able to return to senior care given participation with PT on 11/13 but will continue to update d/c recs after ADL re-assessment. This patient will be rescheduled for later today if able to continue to address the OT plan of care. Chayo Townsend OTR/L, 11/15/2023 9:02 AM * Shani Shaw MD [...] are above goal here (FPG goal <150). TARGETING ACQUISITION OFFICER lantus 30 units BID, lispro 10 units TID AC, metformin 500mg BID. A1c 6.8% on 07/27/23. Complications include h/o diabetes related infections. Hold TARGETING ACQUISITION OFFICER metformin while admitted. Continue statin. 11/12 got 25u lantus (<0.2/kg) and 35u aspart. Likely needs increase in insulin dosing but also use caution with impaired renal clearance / worsening renal function and this can contribute to hypoglycemia. HTN - above goal overnight. ARB is being held. Also may be hypervolemic given renal dysfunction, though UOP is acceptable. Holding TARGETING ACQUISITION OFFICER losartan 50mg daily. Agree with prn hydralazine but would changeto PO. Could start new agent (such as amlodipine) but patient should ultimately resume ARB once renal function is improved Paranoid schizophrenia - restarted TARGETING ACQUISITION OFFICER meds (escitalopram 20mg qhs, trazodone 50mg qhs, prazosin 1mg qhs). Given paliperidone (Invega) IM on 11/12/23 (due every 4 weeks for schizophrenia) Tobacco use - offer nicotine patches, gum, lozenges while inpatient H/o TBI Obesity RECOMMENDATIONS 11/15/23 Increase lantus to 28 units q24h Resume patient's TARGETING ACQUISITION OFFICER losartan 50mg PO daily when Cr is [...] - 11/14/2023 2:55 PM CDT SURGERY PROGRESS NOTE--DEVOPS ARCHITECT Matt Low : 1980 Sex: male SIGNIFICANT [...] (L) 11/14/2023 0530 HGB 9.1 (L) 11/14/2023 05 HCT 28.5 (L) 11/14/2023529 PLT 372 11/14/202330 MCV 88.8 11/14/202330 MCH 28.3 11/14/202330 MCHC 31.9 11/14/2023529 RDW 13.4 11/14/2023529 MPV 9.8 11/14/202330 NEUTNO 13.41 (H) 11/11/2023535 LYMPHAB 2.96 11/11/2023535 MONOABSNO 0.87 11/11/202336 EOSNUMB 0.00 11/10/2023 1431 BASO 0.17 11/11/202336 Susceptibility data from last 90 days. Collected [...] urine output closely. Paranoid schizophrenia - continue radio division captain escitalopram 20mg qhs, trazodone 50mg qhs, prazosin 1mg qhs (ordered) - receives outpatient paliperidone (Invega) IM every 4 weeks for schizophrenia at [facility], unclear when last dose was. Would give [...] assist Disposition: CHRIS Cordero Ma MS3 11/14/2023 [facility] Department of Surgery Pager: via telemediq RESIDENT [...] recent) Autumn Lamar PharmD 11/14/2023 07:56 Pager: (TelVitrueq) * Shani Shaw MD - 11/14/2023 7:18 [...] injury in some patients - zosyn stopped 7/6. Repeat urinalysis unremarkable and prot/Cr elevated but non-nephrotic. Perineal Necrotizing fasciitis s/p sharp excisional debridement 11/11/23 - vitals, WBC improving. Afebrile. Left great toe gangrene - defer to primary team if procedure or consult to Podiatry warranted Type 2 DM with neuropathy, retinopathy - sugars are above goal here (FPG goal <150). TARGETING ACQUISITION OFFICER lantus 30 units BID, lispro 10 units TID AC, metformin 500mg BID. A1c 6.8% on 07/27/23. Complications include h/o diabetes related infections. Hold TARGETING ACQUISITION OFFICER metformin while admitted. Continue statin. 11/12 got 25u lantus (<0.2/kg) and 35u aspart. Likely needs increase in insulin dosing but also use caution with impaired renal clearance / worsening renal function and this can contribute to hypoglycemia. HTN - above goal overnight. ARB is being held. Also may be hypervolemic given renal dysfunction, though UOP is acceptable. Holding TARGETING ACQUISITION OFFICER losartan 50mg daily. Agree with prn hydralazine but would changeto PO. Could start new agent (such as amlodipine) but patient should ultimately resume ARB once renal function is improved Paranoid schizophrenia - restarted TARGETING ACQUISITION OFFICER meds (escitalopram 20mg qhs, trazodone 50mg qhs, [...] recent) Autumn Lamar PharmD 11/13/2023 15:25 Pager: ([employer]) * Nico Hogue MD - 11/13/2023 8:25 [...] WBC 13.27 (H) 11/13/2023517 RBC 3.28 (L) 11/13/2023 0518 HGB 9.2 (L) 11/13/2023 0518 HCT 30.0 (L) 11/13/2023 0518 PLT 317 11/13/202318 MCV 91.5 11/13/202318 MCH 28.0 11/13/2023 0518 MCHC 30.7 (L) 11/13/202318 RDW 13.5 11/13/202318 MPV 10.1 11/13/202318 NEUTNO 13.41 (H) 11/11/2023535 LYMPHAB 2.96 11/11/202336 MONOABSNO 0.87 11/11/202336 EOSNUMB 0.00 11/10/2023 1431 BASO 0.17 11/11/2023535 Collected Specimen Type Organism 11/10/23 Tissue Staphylococcus epidermidis Actinomyces species Staphylococcus pettenkoferi 11/10/23 Swab Anaerococcus vaginalis 11/10/23 Swab Staphylococcus epidermidis Actinomyces species 11/10/2023 1713 11/12/2023 1417 ANAEROBE CULTURE [[id number]] (Abnormal) Tissue from Perineal 2:Perineal tissue Preliminary result Component Value Preliminary Report Positive Culture Many mixed anaerobes present. Culture in progress. POS 11/10/2023 17111/12/2023 1441 TISSUE CULTURE:INCLUDES GRAM STAIN [[id number]] (Abnormal) Tissue from Perineal 2:Perineal tissue Preliminary [...] gram positive cocci in clusters. POS 11/10/2023 17111/12/2023 1416 ANAEROBE CULTURE [[id number]] (Abnormal) Swab from Perineal 1: Perineal tissue swab Preliminary result Component Value Preliminary Report Moderate Anaerococcus vaginalis isolated. Culture in progress. POS Organism ANAEROCOCCUS VAGINALIS POS 11/10/2023 17111/12/2023 1534 WOUND CULTURE:GRAM STAIN OPTIONAL [[id number]] (Abnormal) Swab from Perineal 1: Perineal tissue [...] NPO with excellent blood sugarcontrol. - hold radio division captain metformin while admitted, resume on discharge [...] hypertension while here - agree with holding radio division captain antihypertensives (losartan 50mg daily, , consider restarting closer to DC - restart radio division captain rosuvastatin 10mg qHS Paranoid schizophrenia - restart radio division captain escitalopram 20mg qhs, trazodone 50mg qhs, prazosin 1mg qhs (ordered) - receives outpatient paliperidone (Invega) IM every 4 weeks for schizophrenia at [facility], unclear when last dose was. Would give [...] RECOMMENDATIONS: Demar's Gangrene Necrotizing fasciitis Transferred from [facility] for scrotal swelling, pain, concern [...] NPO with excellent blood sugarcontrol. - hold radio division captain metformin while admitted, resume on discharge [...] hypertension while here - agree with holding radio division captain antihypertensives (losartan 50mg daily, , consider restarting closer to DC - restart radio division captain rosuvastatin 10mg qHS Paranoid schizophrenia - restart radio division captain escitalopram 20mg qhs, trazodone 50mg qhs, prazosin 1mg qhs (ordered) - receives outpatient paliperidone (Invega) IM every 4 weeks for schizophrenia at [facility], unclear when last dose was. Would give dose here if due and if available on formulary. Tobacco use - offer nicotine patches, gum, lozenges while inpatient - cessation counseling as able (pt unable to engage today) H/o TBI Obesity PLAN: Neuro/Pain Control: Multimodal Scheduled: Tylenol, Gabapentin, cyclobenzaprine PRN: Hydromorphone CV: Monitor blood pressure and pulse and intervene as needed. Restart radio division captain rosuvastatin 10mg qHS Pulm: Encourage incentive [...] Disposition: Nico Murray MD, 11/13/2023 8:25 AM [facility] Department of Surgery Pager: via telemediq Surgery [...] Type 2 DM with neuropathy, retinopathy - TARGETING ACQUISITION OFFICER lantus 30 units BID, lispro 10 units TID AC, [id number] BID. A1c 6.8% on 07/27/23. Complications include h/o diabetes related infections. Hold TARGETING ACQUISITION OFFICER metformin while admitted. Continue statin. HTN - mostly at goal off antihypertensives. Holding TARGETING ACQUISITION OFFICER losartan 50mg daily Paranoid schizophrenia - restarted TARGETING ACQUISITION OFFICER meds (escitalopram 20mg qhs, trazodone 50mg qhs, [...] follow. Please page Hospitalist Consult A on [employer] for any further issues or questions. SUBJECTIVE/Events [...] recent) Gala Salinas, Jaxon 11/12/2023 14:59 Pager: (TelTruckTrack) * Gracia Kumar, RN - 11/12/2023 1:00 PM CDT 11/12/23 1254 Mechanical Shop Laborer Used. Mechanical Shop Laborer Used None needed (interview conducted with AL staff) Social Information Living Situation [facility] Facility Admitted From hospital (Admitted from [facility]) Name of facility [facility] Patient medically appropriate to transfer back to outside hospital? No Patient Identified Support System AL staff Services Receiving ROOMING HOUSE INSPECTOR / Skilled Services;Case Management;Waivered services (see comment) Complex Medical Needs Other (see comment) Transportation Used for Discharge wound care Safety Concerns None Behavioral Health Concerns None Patient Family Goals Patient's Discharge Goal back to [place] Family's Discharge Goal no family Plan/Interventions Expected Discharge Disposition Intermediate Was Patient Choice Provided? No Who was Choice Provided to? Other (comment) (pt will return to TARGETING ACQUISITION OFFICER facility when medically stable) Patient Information Verification Verified demographic information, including SSN, Next of Kin, and Guardianship Yes Verified PCP Yes If post-acute placement is needed, have vaccination status needs been addressed? Yes Pt admitted from [facility] after transfer to there from senior care for treatment of Demar's gangrene of perineal area * Nico Hogue MD - 11/12/2023 8:02 AM CDT SURGERY PROGRESS NOTE--DEVOPS ARCHITECT Matt Low : 1980 Sex: male SIGNIFICANT [...] Component Value Date/Time WBC 17.41 (H) 11/11/2023 05 RBC 2.72 (L) 11/11/2023 05 HGB 7.8 (L) 11/11/2023 05 HCT 24.1 (L) 11/11/2023 0536 PLT 203 11/11/2023 0536 MCV 88.6 11/11/2023 0536 MCH 28.7 11/11/2023535 MCHC 32.4 11/11/202336 RDW 13.2 11/11/2023535 MPV 10.1 11/11/2023535 NEUTNO 13.41 (H) 11/11/2023535 LYMPHAB 2.96 11/11/2023535 MONOABSNO 0.87 11/11/2023535 EOSNUMB 0.00 11/10/2023 1431 BASO 0.17 11/11/202336 ASSESSMENT: 43 y.o. male pmhx of T2DM [...] Disposition: Nico Murray MD, 11/12/2023 8:03 AM [facility] Department of Surgery Pager: via telemediq Surgery [...] Comments: RN: Gloria Velez RN Extension #: [id number] * Robert Kruse MDIV - 11/11/2023 1:43 PM CDT SPIRITUAL CARE VISIT SUMMARY Matt Low : 1980 Sex: male LOS: 1 day Reason for visit: Referral Assessment: Pt/family uncertain/anxious/frustrated;Pt/family coping/relieved Intervention: Compassionate support;Facilitate communication;Lead/support spiritual rituals Outcome: Situation assessed;Gratitude expressed;Ritual provided Notes: I met with Matt at bedside during rounds. Matt shared that he wanted a prayer for healing and christian of his health which I offered as requested. He had no other support needs at this time. Plan: Spiritual Care Team is available to support patient and family as needed via number [phone]. Robert Kruse MDIV, 11/11/2023 1:43 PM Number: [phone] * Hannah Boland RT - 11/11/2023 12:40 [...] Boland RT, 11/11/2023 12:40 PM * Sheila iDas RN - 11/11/2023 6:00 AM CDT NURSING ADMISSION NOTE Matt Low : 1980 SEX: male D: Matt Low was admitted to [facility] from PACU at 0600 for Fourniers [...] informed of Patient Valuables and Belongings Policy (#[id number]): Due to patient condition, [facility] staff will inventory and secure patient valuables Items Needing Securement: Cell phone Cell Phone Secured?: Yes Cell Phone Visually Damaged: Yes Patient Belongings: Clothing Clothing Comments: shirt, 1 shoe, 1 sock, * Gracia Tirado MDIV - 11/10/2023 3:26 PM CDT Manager Drilling Stabilization Room Note Matt Low : 1980 Sex: male LOS: 0 days Initial Description: Matt Low with history of gangrene. Pt was responding appropriately to questions. Patient and Family Context: No family present. Pt came from a facility in [place]. Plan: Spiritual Care Team is available to support patient and family as needed via number [phone]. Gracia Tirado MDIV, 11/10/2023 3:27 PM Number: [phone] * Camilla Treviño, PharmD - 11/10/2023 2:38 [...] for 2 days. 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 He has a history of T2DM on 10u long acting insulin three times daily, situs inversus, and TBI several years ago and lives in a senior care. CT at OSH showed gas in perineal [...] PGY2 Green Surgery Associated attestation - Zac hCurchill MD - 11/15/2023 2:03 PM CDT FACULTY NOTE I saw and evaluated the patient on the date of the typewriters functional tester's note. I discussed with the typewriters functional tester of the note and agree with their findings and plan documented in the typewriters functional tester's note from above. Any revisions by me are documented. Zac Churchill MD, 11/15/2023 2:03 PM documented in this encounter Consult Notes * Gala Salinas, PharmD - 11/24/2023 2:22 PM CDTAssociated Order(s): DISCHARGE MED REC FINAL REVIEW BY PHARMACY PHARMACY DISCHARGE NOTE Stephanie Low : 1980 Sex: male Pharmacy service was consulted for review of patient's discharge medications. Assessment: Pertinent points to note: -- TARGETING ACQUISITION OFFICER losartan, metformin and ibuprofen all discontinued due to ongoing acute kidney injury. I have reviewed the patient's medications for discharge and have discussed the necessary changes with the provider. Changes have been made and medication list updated and complete. Please page with any questions. Gala Salinas PharmD 11/24/2023 14:22 For questions regarding this note, please contact pharmacist on service at PharmD [facility] ([employer]eebrite) [phone]. If no response within needed timeframe, please contact central pharmacy via phone at [phone]. Planned discharge medications are: Medication List Medications [...] 2 Diabetes Reduced from twice daily dosing TARGETING ACQUISITION OFFICER, per Medicine recommendations. insulin LISPRO 100 UNIT/ML Kwikpen Commonly known as: HumaLOG KwikPen Inject 6 UNITS subcutaneously 3 times daily before meals. Reduced from 10 units per dose TARGETING ACQUISITION OFFICER, per Medicine recommendations. Invega Sustenna 156 MG/ML [...] follow. Patient follows with Dr Hayden in [place] TARGETING ACQUISITION OFFICER Please page commercial pest control technician resident with questions. Patient was seen with commercial pest control technician staff, Dr. Black CHIEF COMPLAINT: Left hallux wound HISTORY OF PRESENT ILLNESS: Matt Low is a 43 y.o. male presenting with left hallux necrosis. Patient initially presented to [facility] for concern for foreigners gangrene [...] 74.09 Activity Intolerance Z 73.89 PRECAUTIONS [place] Mechanical Shop Laborer Used: None needed ACTIVITY Up ad Celia [...] Type 2 DM with neuropathy, retinopathy - TARGETING ACQUISITION OFFICER lantus 30 units BID, lispro 10 units TID AC, [id number] BID. A1c 6.8% on 07/27/23. Complications include h/o diabetes related infections. Hold TARGETING ACQUISITION OFFICER metformin while admitted. Continue statin. HTN - mostly at goal off antihypertensives. Holding TARGETING ACQUISITION OFFICER losartan 50mg daily Paranoid schizophrenia - restarted TARGETING ACQUISITION OFFICER meds (escitalopram 20mg qhs, trazodone 50mg qhs, prazosin 1mg qhs). Given paliperidone (Invega) IM on 11/12/23 (due every 4 weeks for schizophrenia) Tobacco use - offer nicotine patches, gum, lozenges while inpatient Medical History No past medical history on file. SOCIAL HISTORY Information gathered from: Patient Home: senior care in [place] Prior level of function: independent Baseline Ambulation: [...] Status: Oriented X 3, Alert, and Cooperative, [facility] Follows Direction: Yes, 1step OBJECTIVE Initial patient [...] notes. A&Ox3, but thought at hospital in [place]. Anticipate pt will be able to d/c [...] when ready, stairs as able, standing balance. TARGETING ACQUISITION OFFICER Appropriate: Yes Participated in goal setting and treatment planning: Patient Agrees with goals and treatment plan: Patient - Yes. Che Garcia, PT 11/14/2023 Pager: [facility] PT Department * Guru Franco MD - 11/13/2023 1:14 PM CDTAssociated Order(s): CONSULT TO INFECTIOUS DISEASE ID-2 NEW CONSULT NOTE Matt Low 1980 male [id number] REASON FOR CONSULT: I was asked to see Matt Low by Zac Churchill regarding Demar's gangrene. ASSESSMENT: 43 y.o. male pmhx of T2DM with prior right toe amputations transferred from [facility] forurnier's gangrene, s/p I&D x 2, currently [...] ID-2 will continue to follow. HPI: Matt Lwo is a 43 y.o. male admitted on 11/10/2023 2:28 PM for Demar's gangrene. 43 y.o. male pmhx of T2DM with prior right toe amputations transferred from [facility] forscrotal swelling, pain, concern for [...] Value Date/Time WBC 13.27 (H) 11/13/2023 0518 PLT 317 11/13/2023517 HGB 9.2 (L) 11/13/2023 05 CR 3.04 (H) 11/13/2023517 Lab Results Component Value Date/Time WBC 13.27 (H) 11/13/2023 05 WBC 17.87 (H) 11/12/2023 1136 WBC 17.41 [...] tissue fungal cx Imaging results: Reviewed in [facility], Guru Swan MD, 11/13/2023 1:14 PM FACULTY [...] date) Patient is living in a/an : senior care Prior Level of Function: ADLs/IADLs: Received assistance [...] to month and year; not to place [facility]; intermittently follows 1 steps commands; [...] (11/09 and 11/10). At baseline pt from senior care. Pt unable to provide any social history [...] Eval: 18 minutes Therapist: EDWIN Alvarado/Brian Pager: [facility] Occupational Therapy Department * Sophie Barajas MD - 11/12/2023 10:07 AM CDTAssociated Order(s): CONSULT TO MEDICINE SERVICES INTERNAL MEDICINE CONSULT- STAFF Matt Low : 1980 Sex: male Reason for Consult: Diabetes management, antibiotic selection IMPRESSION AND RECOMMENDATIONS: Demar's Gangrene Necrotizing fasciitis Transferred from [facility] for scrotal swelling, pain, concern [...] NPO with excellent blood sugarcontrol. - hold radio division captain metformin while admitted, resume on discharge [...] hypertension while here - agree with holding radio division captain antihypertensives (losartan 50mg daily, , consider restarting closer to DC - restart radio division captain rosuvastatin 10mg qHS Paranoid schizophrenia - restart radio division captain escitalopram 20mg qhs, trazodone 50mg qhs, prazosin 1mg qhs (ordered) - receives outpatient paliperidone (Invega) IM every 4 weeks for schizophrenia at [facility], unclear when last dose was. Would give [...] long enough to participate indiscussion. Transferred from [facility] for scrotal pain and swelling, [...] including pre-visit review of separately obtained history, [id number] interaction performing medically appropriate physical exam, patientcounseling/education, interpretation of diagnostic results, care coordination and documentation was60 minutes. documented in this encounter OR Notes * OR Surgeon - Che Palomo DPM - 11/17/2023 10:32 AM CDT Images from the original note were not included. Podiatric Surgery Operative Report Matt Low : 1980 Sex: male OR Date: 11/17/2023 Surgeon: Che Palomo [email or web address] Pre-Op Diagnosis: Gangrene left hallux Daily tobacco [...] 3:41 PM CDT Operative Report - PGY2 [facility] Matt Anne : 1980 Sex: M Procedure: [...] 6:07 PM CDT OPERATIVE REPORT - PGY5 [facility] Matt Low : 1980 Sex: male Procedure: [...] PM CDT Pt BIBA as transfer from [place]. 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 Pt given Ertapenem 1gm and Insulin 10 units TARGETING ACQUISITION OFFICER. BS 400 at outside hospital. Pt is [...] CDT Physical Therapy Inpatient Discharge Summary Stephanie Keyzena [id number] PT Discharge Recommendations DC Recommendations: Post-acute placement recommended. (11/22/23 1400) Post Discharge follow-up: PT at post-acute placement (11/22/23 1400) Equipment Status: Equipment needs being determined;Equipment issued (11/22/23 1400) PT Equipment Recommended: Front wheeled walker (11/22/23 1400) Recommend PM&R consult (PT): * (No) (11/18/231509) [...] Pain Rating With Activity (Numeric): 0 (11/18/23 151) Transfer & Bed Mobility Roll Right: Modified [...] LE in post-op shoe with (6) Modified Gove in order to mobilize in home by [...] Therapist: Kenrick Fisher PT Date: 11/24/2023 Pager: [facility] PT Department * Discharge non-MD/non-MIRI Summaries - Lior Azul - 11/25/2023 7:36 AM CDT Summary: DC to SNF Care Coordination Discharge Note Expected DC Date: 11/25/23 Expected DC Time: 13h30 Final Discharge Destination: Selected Continued Care - Admitted Since 11/10/2023 Destination Coordination complete. Service Provider Selected Services Address Phone Fax Patient Preferred [facility] [address] [place] [phone] -- Summary: Insurance approved Patient has been accepted to continue rehabing at the aforementioned post acute facility. Patient is on board with plan. CC spoke with patient in person in the room Embedded Hardware Engineer also confirmed with Minnie REGALADO at . Also, DC summary faxed to [phone], via [employer]. WC ride has been ordered. GASKET INSPECTOR (Vacuum Closing Machine Operator Woodworking Craftsman) will schedule. Check [id number] for confirmation. Medical team is aware. They will work writing DC orders. CC sent DC orders to SNF by [employer] fax. Medical team is aware any controlled substances must be printed and signed to be sent in physical form to the TCU. PLEASE MAKE SURE RX IS COMPLETE. MAKE SURE QUANTITY IS ADDED. Also, PSC/LABOR OPERATOR/RN will fax it to TCU olga (this is required so in case of pain during transport, pain control can be addressed) Bedside nurse: please confirm this is done. A [employer] thread has been started. CC will continue to follow until DC. Please use [employer] for any further questions. * Nursing Assessment [...] Townsend, OTR/L - 11/24/2023 12:59 PM CDT [facility] Occupational Therapy Discharge Summary Stephanie Low 11/24/2023 [...] subacute rehab. Patient Name: Stephanie Low MR#: [id number] Date of : 1980 Age: 43 y.o. [...] 1100) Patient is living in a/an : senior care (11/13/23 1100) Prior Level of Function (TARGETING ACQUISITION OFFICER): ADLs/IADLs: Received assistance from staff at residence [...] Chair: Minimal assist (75% patient effort) (CGA) (11/19/23899) Bed to/from Chair - Method: Standing pivot w/ AD (11/19/23899) Toilet Transfer: Supervision/Stand by assist (11/24/23 1200) Toilet Transfer- Method: Grab bar (11/24/23 1200) Bed to Bathroom: Supervision/Stand by assist;Verbal cues (11/24/231199) Bed to Bathroom- Method: None (11/24/231199) Functional Mobility in Room- Task Done: walk in hallway for ADL endurance (11/18/231509) Functional Mobility in Room: Minimal assist (75% patient effort) (11/18/231509) Functional Mobility in Room- Method: None (11/18/231509) Motor / Splints: Cognition Mental Status: Alert;Cooperative;Follows 1 step direction;Oriented x 3 (11/24/231199) Delirium Assessment: Delirium Assessment - CAM Short (Confusion Assessment Method) Acute onset OR fluctuating course: No (11/19/23899) Inattention: Yes (11/13/231099) Disorganized Thinking: No (11/24/231199) Altered level of consciousness: No (11/24/231199) CAM result: Negative (11/19/23899) Visual Perception: Patient / Caregiver Training: See Care Plan for progress towards goals. Occupational Therapist: EDWIN Alvarado/Brian OT Department * Nursing Assessment - Demetra [...] in length Anterior;Left Forearm 11/13/23 09 -- 11 Wound 11/10/23 Incision Perineum 11/10/23 [...] 3/4 in length Anterior;Left Forearm 11/13/23928 -- 10 Wound 11/10/23 Incision Perineum 11/10/23 [...] attempted to leave the unit. Irene Min, RN, 11/23/2023 10:15 PM Neurologic/Cognitive Assessment Within Defined [...] RN - 11/23/2023 4:39 PM CDT Per EPIDEMIOLOGIST no longer meets IP criteria, documentation in [...] 3/4 in length Anterior;Left Forearm 11/13/23928 -- 10 Wound 11/10/23 Incision Perineum 11/10/23 170 Perineum 12 Wound 11/10/23 Foot Left 11/10/23 [...] 3/4 in length Anterior;Left Forearm 11/13/23928 -- 10 Wound 11/10/23 Incision Perineum 11/10/23 1707 Perineum 12 Wound 11/10/23 Foot Left 11/10/23 1839 Foot 12 Psychosocial Within Defined Limits * Nursing Assessment - Mabel Mathews RN - 11/23/2023 1:06 AM CDT Nursing Assessment Head to Toe Head to Toe Assessment Shift Summary [id number] Pt is a/o X4 and can make [...] Defined Limits * Nursing Assessment - Leilani Sim, SABINE - 11/22/2023 5:00 PM CDT Nursing Assessment [...] Defined Limits * Nursing Assessment - Damari Brower RN - 11/21/2023 5:21 AM CDT Nursing [...] without difficulties. Follow established POC. Damari Brower, SABINE, 11/21/2023 6:19 AM Neurologic/Cognitive Assessment Within Defined [...] 09 -- 7 Wound 11/10/23 Incision Perineum 11/10/231706 Perineum 9 [...] in length Anterior;Left Forearm 11/13/23 09 -- 6 Wound 11/10/23 Incision Perineum 11/10/231706 [...] -- 6 Wound 11/10/23 Incision Perineum 11/10/23 170 Perineum 8 Wound 11/10/23 Foot Left 11/10/23 [...] Cardiac Assessment Within Defined Limits except for: [facility] - remote telemetry Respiratory Within defined limits [...] in length Anterior;Left Forearm 11/13/23 09 -- 5 Wound 11/10/23 Incision Perineum 11/10/231706 [...] Stool (unmeasured): 0 (11/17/231999) Stool Amount: small (11/15/230) Stool Color: light [...] 3/4 in length Anterior;Left Forearm 11/13/23928 -- 5 Wound 11/10/23 Incision Perineum 07/03/24 1707 Perineum 7 Wound 11/10/23 Foot Left [...] patient has had with his girlfriend which wewinifredve received this contestation through facility RN ' [...] Limits except for: Heart sounds: S1, S2 [facility] - remote telemetry Comments: Consistently sustaining SBP [...] Toe Head to Toe Assessment Shift Summary [id number] Pt is a/o X4 and can make [...] Cardiac Assessment Within Defined Limits except for: Director [facility] Care [facility] - remote telemetry Respiratory Within defined limits [...] Palomo DPM - 11/17/2023 9:26 AM CDT [facility] Immediate Post Operative Note Note [...] Palomo DPM 11/17/2023 0931 Complications: none Che Paolmo DPM 11/17/2023 09:55 * Nursing Assessment - Raymundo Dunlap RN - 11/17/2023 8:22 AM CDT Nursing Assessment Head to Toe Head to Toe Assessment Shift Summary Patient to the OR at 0800. This typewriters functional tester called to notify SECURED ENTRANCE MONITORstaff auditor of hypertension. Pt had left the room prior to HCA notifying this typewriters functional tester of BP of 222/101. Vitals: 11/17/23 0800 [...] wants to go outside to smoke, and typewriters functional tester encouraged the patient not to go outside [...] Cardiac Assessment Within Defined Limits except for: [facility] - remote telemetry Respiratory Assessment Within Defined [...] Cardiac Assessment Within Defined Limits except for: [facility] - remote telemetry Respiratory Assessment Within Defined [...] Defined Limits except for: Chest Pain: No [facility] - remote telemetry Pacemaker: Pacemaker: No Respiratory [...] Cardiac Assessment Within Defined Limits except for: [facility] - remote telemetry Comments: NSR Respiratory Within [...] Cardiac Assessment Within Defined Limits except for: [facility] - remote telemetry Respiratory Assessment Within Defined Limits except for: Comments: 2L O2 via N/C Neurovascular Assessment Within Defined Limits except for: Neurovascular LUE Temperature: Cool Neurovascular RUE Temperature: Cool Neurovascular LLE Sensation: Sensation decreased Neurovascular RLE Sensation: Sensation decreased Gastrointestinal Within Defined Limits Stool (unmeasured): 1 (11/13/23 1430) Stool Amount: moderate (11/14/23 06) Stool Color: brown (11/14/23599) Stool Consistency: loose (11/14/23599) Genitourinary Assessment Within Defined Limits except for: [...] Cardiac: Assessment Within Defined Limits except for: Director [facility] - remote telemetry Respiratory: Assessment Within Defined [...] Note - PGY-1 Matt Low 43 y.o. [id number] Paged at 03:34 on 11/14/23 for elevated [...] for SBP > 180 - Potentially resume TARGETING ACQUISITION OFFICER losartan per primary team in the AM [...] VMT if impulsivity continues to escalate. Theresa Romero, RN, 11/13/2023 7:14 PM Neurologic/Cognitive Assessment Within Defined Limits except for: Cognition: poor judgement/safety awareness and poor attention/concentration Level of Consciousness: Obtunded, lethargic and confused Arousal Level: Arouses to voice and arouses to touch/gentle shaking Orientation: disoriented to time Speech: Illogical Mood/Behavior: Impulsive Frequent Neuro Assessments have been documented in the flowsheets HEENT Within Defined Limits Cardiac Assessment Within Defined Limits except for: [facility] - remote telemetry Respiratory Assessment Within Defined [...] Cardiac Assessment Within Defined Limits except for: [facility] - remote telemetry Pacemaker: Pacemaker: No Respiratory [...] Cardiac Assessment Within Defined Limits except for: [facility] - remote telemetry Respiratory Assessment Within Defined [...] Cardiac Assessment Within Defined Limits except for: [facility] - remote telemetry Respiratory Assessment Within Defined [...] Cardiac Assessment Within Defined Limits except for: [facility] - remote telemetry Respiratory Assessment Within Defined [...] Nichols MD - 11/11/2023 3:13 PM CDT [facility] Immediate Post Operative Note Note [...] Osborn MD - 11/10/2023 5:07 PM CDT [facility] Immediate Post Operative Note Note [...] linezolid (ZYVOX) IVPB 600 mg Last given: 155 Frequency: ONE TIME * Missing tourniquet times [...] at time of review in ED - radio division captain abx administered * ED Stabilization Note - Allyssa Drummond MD - 11/10/2023 2:43 PM CDT Emergency Department Stabilization Room Note [facility] Arrival Date and Time: 11/10/2023 2:28 PM MEDICAL TEAM Attending: MD MARCELLUS Grullon Resident: Allyssa Drummond MD RN: Enmanuel HCA: Doreen Consultants: General surgery PRE-HOSPITAL EVENTS & HISTORY Matt Low is a 43 y.o. male who presents to the stabilization room as a transfer from [place] for Demar's gangrene. Patient has a history of type 2 diabetes on 3 times daily 10 units long-acting insulin, situs inversus, and TBI several years ago for which he lives in a senior care. 2 days ago he noticed pain in his perineum, it has gotten worse over the past several days. His girlfriend urged him to go to the hospital today and the physicians at [place] were concerned for Demar'sgangrene and transferred him [...] CRP 30, procal 0.83, WBC 20 at [place]. We will draw an ESR and our [...] POC GLUCOSE Routine 11/17/2023 9:14 AM CDT ULT ARTERIAL LOWER EXT LEFT Routine 11/17/2023 [...] POC Glucose 140(H) 70 - 100 mg/dL [facility] Blood 11/25/2023 6:03 AM CDT Jessica Grullon MD LABORATORY Performing Organization Address City/[facility]/ZIP Co de Phone Number [facility] [address] [place] [address], [place] * (ABNORMAL) POC GLUCOSE (11/24/2023 8:47 PM CDT) POC Glucose 156(H) 70 - 100 mg/dL [facility] Blood 11/24/2023 8:47 PM CDT Jessica Grullon MD LABORATORY Performing Organization Address City/[facility] Co de Phone Number [facility] [address] [place] [address], [place] * (ABNORMAL) POC GLUCOSE (11/24/2023 4:56 PM CDT) POC Glucose 177(H) 70 - 100 mg/dL [facility] Blood 11/24/2023 4:56 PM CDT Jessica Grullon MD LABORATORY [facility] [address] [place] [address], [place] * (ABNORMAL) POC GLUCOSE (11/24/2023 11:22 AM CDT) POC Glucose 146(H) 70 - 100 mg/dL [facility] Blood 11/24/2023 11:2 2 AM CDT Jessica Grullon MD LABORATORY [facility] [address] [place] [address], [place] * (ABNORMAL) POC GLUCOSE (11/24/2023 6:03 AM CDT) POC Glucose 147(H) 70 - 100 mg/dL [facility] Blood 11/24/2023 6:03 AM CDT Jessica Grullon MD LABORATORY Performing Organization Address [facility] Co de Phone Number [facility] [address] [place] [address], [place] * (ABNORMAL) POC GLUCOSE (11/23/2023 7:52 PM CDT) POC Glucose 160(H) 70 - 100 mg/dL [facility] Blood 11/23/2023 7:52 PM CDT Jessica Grullon MD LABORATORY Performing Organization Address City/[facility] Co de Phone Number [facility] [address] [place] [address], [place] * (ABNORMAL) POC GLUCOSE (11/23/2023 4:18 PM CDT) POC Glucose 156(H) 70 - 100 mg/dL [facility] Blood 11/23/2023 4:18 PM CDT Jessica Grullon MD LABORATORY Performing Organization Address City/[facility]/ZIP Co de Phone Number [facility] [address] [place] [address], [place] * (ABNORMAL) POC GLUCOSE (11/23/2023 11:13 AM CDT) POC Glucose 182(H) 70 - 100 mg/dL [facility] Blood 11/23/2023 11:1 3 AM CDT Jessica Grullon MD LABORATORY Performing Organization Address City/[facility]/ZIP Co de Phone Number [facility] [address] [place] [address] * (ABNORMAL) PANEL BASIC METABOLIC (BMP) (11/23/2023 8:31 AM CDT) Pathologist [facility] CO2 24 22 - 30 mmol/L [facility] Glucose 192(H) 70 - 100 mg/dL [facility] BUN 20 6 - 20 mg/dL [facility] Creatinine 1.96(H) 0.70 - 1.25 mg/dL [facility] Calcium 8.5(L) 8.6 - 10.0 mg/dL [facility] Sodium 137 135 - 148 mmol/L [facility] Potassium 5.1 3.5 - 5.3 mmol/L [facility] Chloride 103 92 - 108 mmol/L [facility] eGFR (2020 CKD-EPI) 42(L) >=60 ml/min/1.7 3m2 [facility] Comment: The estimated glomerular filtration rate (eGFR) was calculated using the CKD-EPI 2020 creatinine equation, which does not include race as a factor. This equation is validated in individuals 18 years of age and older, and eGFR is normalized to a body surface area of 1.73m^2. AnGap 10 8 - 16 mmol/L [facility] Blood 11/23/2023 8:31 AM CDT 11/23/2023 9:12 AM CDT Zac Churchill MD LABORATORY Performing Organization Address City/[facility]/ZIP Co de Phone Number [facility] [address] [address] * (ABNORMAL) CBC WITH PLATELET (11/23/2023 8:31 AM CDT) WBC 13.36(H) 4.00 - 10.00 k/cmm [facility] RBC 3.57(L) 4.60 - 6.00 m/cmm [facility] Hgb 10.0(L) 13.1 - 17.5 g/dL [facility] Hematocrit 31.5(L) 40.0 - 51.0 % [facility] MCV 88.2 80.0 - 100.0 fL [facility] MCH 28.0 25.0 - 32.0 pg [facility] MCHC 31.7 31.0 - 36.0 g/dL [facility] RDW 14.4 11.5 - 14.5 % [facility] Plt 492(H) 150 - 400 k/cmm [facility] MPV 9.1 6.5 - 12.5 fL [facility] Blood 11/23/2023 8:31 AM CDT 11/23/2023 9:11 AM CDT aZc Churchill MD LABORATORY Performing Organization Address [facility] Co de Phone Number [facility] [place] [address] * (ABNORMAL) POC GLUCOSE (11/23/2023 6:43 AM CDT) POC Glucose 121(H) 70 - 100 mg/dL [facility] Blood 11/23/2023 6:43 AM CDT Jessica Grullon MD LABORATORY Performing Organization Address [facility] Co de Phone Number [facility] [address] [place] [address] * POC GLUCOSE (11/22/2023 8:28 PM CDT) POC Glucose 95 70 - 100 mg/dL [facility] Blood 11/22/2023 8:28 PM CDT Jessica Grullon MD LABORATORY Performing Organization Address [facility] Co de Phone Number [facility] [address] [place] [address], * (ABNORMAL) POC GLUCOSE (11/22/2023 4:10 PM CDT) POC Glucose 176(H) 70 - 100 mg/dL [facility] Blood 11/22/2023 4:10 PM CDT Jessica Grullon MD LABORATORY Performing Organization Address [facility] Co de Phone Number [facility] [address] [place] [address], * (ABNORMAL) POC GLUCOSE (11/22/2023 11:21 AM CDT) [facility] POC Glucose 201(H) 70 - 100 mg/dL [facility] Blood 11/22/2023 11:2 1 AM CDT Jessica Grullon MD LABORATORY Performing Organization Address [facility] de Phone Number [facility] [address] [place] [address], * (ABNORMAL) CYSTATIN C (11/22/2023 9:23 AM CDT) [facility] Cystatin C 1.43(H) 0.61 - 0.95 mg/L [facility] eGFR by Cystatin C 51(L) >=60 ml/min/1.7 3m2 [facility] Comment: Estimated GFR calculated using the CKD-EPI Cystatin C (2012) equation. Stage ? Description ?eGFR Range ??1.......Normal or increased eGFR.......90 or Greater ??2.......Mildly decreased eGFR..........60-89 ??3.......Moderately decreased eGFR......30-59 ??4.......Severely decreased eGFR........15-29 ??5.......Kidney Failure.................Less than 15 Blood 11/22/2023 9:23 AM CDT 11/22/2023 2:05 PM CDT Zac Churchill MD LABORATORY Performing Organization Address [facility] Co de Phone Number [facility] [address] [address] * (ABNORMAL) PANEL BASIC METABOLIC (BMP) (11/22/2023 9:23 AM CDT) Sodium 136 135 - 148 mmol/L [facility] Potassium 5.1 3.5 - 5.3 mmol/L [facility] Chloride 102 92 - 108 mmol/L [facility] CO2 24 22 - 30 mmol/L [facility] AnGap 10 8 - 16 mmol/L [facility] Glucose 254(H) 70 - 100 mg/dL [facility] BUN 20 6 - 20 mg/dL [facility] Creatinine 2.00(H) 0.70 - 1.25 mg/dL [facility] Calcium 8.6 8.6 - 10.0 mg/dL [facility] eGFR (2020 CKD-EPI) 41(L) >=60 ml/min/1.7 3m2 [facility] Comment: The estimated [...] Zac Churchill MD LABORATORY Performing Organization Address City/[facility] Co de Phone Number [facility] [address] [address] * (ABNORMAL) CBC WITH PLATELET (11/22/2023 9:23 AM CDT) WBC 12.35(H) 4.00 - 10.00 k/cmm [facility] RBC 3.47(L) 4.60 - 6.00 m/cmm [facility] Hgb 9.8(L) 13.1 - 17.5 g/dL [facility] Hematocrit 30.8(L) 40.0 - 51.0 % [facility] MCV 88.8 80.0 - 100.0 fL [facility] MCH 28.2 25.0 - 32.0 pg [facility] MCHC 31.8 31.0 - 36.0 g/dL [facility] RDW 14.5 11.5 - 14.5 % [facility] Plt 530(H) 150 - 400 k/cmm [facility] MPV 9.3 6.5 - 12.5 fL [facility] Blood 11/22/2023 9:23 AM CDT 11/22/2023 10:28 AM CDT Zac Churchill MD LABORATORY Performing Organization Address City/[facility]/ZIP Co de Phone Number [facility] [place] [address] * (ABNORMAL) POC GLUCOSE (11/22/2023 6:55 AM CDT) POC Glucose 136(H) 70 - 100 mg/dL [facility] Blood 11/22/2023 6:55 AM CDT Jessica Grullon MD LABORATORY Performing Organization Address City/[facility]/ZIP Co de Phone Number [facility] [address] [place], [place] [phone], [place] * (ABNORMAL) POC GLUCOSE (11/21/2023 8:38 PM CDT) POC Glucose 139(H) 70 - 100 mg/dL [facility] Blood 11/21/2023 8:38 PM CDT Jessica Grullon MD LABORATORY [facility] [address] [place], [place] [id number], [place] * (ABNORMAL) POC GLUCOSE (11/21/2023 4:13 PM CDT) POC Glucose 141(H) 70 - 100 mg/dL [facility] Blood 11/21/2023 4:13 PM CDT Jessica rGullon MD LABORATORY Performing Organization Address [facility] Co de Phone Number [facility] [address] [place] [address], [place] * (ABNORMAL) POC GLUCOSE (11/21/2023 11:12 AM CDT) POC Glucose 177(H) 70 - 100 mg/dL [facility] Blood 11/21/2023 11:1 2 AM CDT Jessica Grullon MD LABORATORY Performing Organization Address [facility] Co de Phone Number [facility] [address] [place] [address], [place] * (ABNORMAL) POC GLUCOSE (11/21/2023 6:08 AM CDT) Pathologist [facility] POC Glucose 131(H) 70 - 100 mg/dL [facility] Blood 11/21/2023 6:08 AM CDT Jessica Grullon MD LABORATORY Performing Organization Address [facility] Co de Phone Number [facility] [address] [place] [address], [place] * (ABNORMAL) PANEL BASIC METABOLIC (BMP) (11/21/2023 4:52 AM CDT) CO2 27 22 - 30 mmol/L [facility] Glucose 128(H) 70 - 100 mg/dL [facility] BUN 21(H) 6 - 20 mg/dL [facility] Creatinine 2.07(H) 0.70 - 1.25 mg/dL [facility] Calcium 8.4(L) 8.6 - 10.0 mg/dL [facility] Sodium 138 135 - 148 mmol/L [facility] Potassium 4.8 3.5 - 5.3 mmol/L [facility] Chloride 103 92 - 108 mmol/L [facility] eGFR (2020 CKD-EPI) 40(L) >=60 ml/min/1.7 3m2 [facility] Comment: The estimated glomerular filtration rate (eGFR) was calculated using the CKD-EPI 2020 creatinine equation, which does not include race as a factor. This equation is validated in individuals 18 years of age and older, and eGFR is normalized to a body surface area of 1.73m^2. AnGap 8 8 - 16 mmol/L [facility] Blood 11/21/2023 4:52 AM CDT 11/21/2023 5:27 AM CDT Zac Churchill MD LABORATORY Performing Organization Address City/[facility] Co de Phone Number [facility] [address] [address] * (ABNORMAL) CBC WITH PLATELET (11/21/2023 4:52 AM CDT) WBC 11.48(H) 4.00 - 10.00 k/cmm [facility] RBC 3.21(L) 4.60 - 6.00 m/cmm [facility] Hgb 9.0(L) 13.1 - 17.5 g/dL [facility] Hematocrit 28.7(L) 40.0 - 51.0 % [facility] MCV 89.4 80.0 - 100.0 fL [facility] MCH 28.0 25.0 - 32.0 pg [facility] MCHC 31.4 31.0 - 36.0 g/dL [facility] RDW 14.6(H) 11.5 - 14.5 % [facility] Plt 510(H) 150 - 400 k/cmm [facility] MPV 9.1 6.5 - 12.5 fL [facility] Blood 11/21/2023 4:52 AM CDT 11/21/2023 5:27 AM CDT Zac Churchill MD LABORATORY [facility] [address] [place] [address] * (ABNORMAL) POC GLUCOSE (11/20/2023 9:13 PM CDT) POC Glucose 153(H) 70 - 100 mg/dL [facility] Blood 11/20/2023 9:13 PM CDT Jessica Grullon MD LABORATORY Performing Organization Address City/[facility]/ZIP Co de Phone Number [facility] [address] [place] [address], [place] * (ABNORMAL) POC GLUCOSE (11/20/2023 3:52 PM CDT) Pathologist [facility] POC Glucose 129(H) 70 - 100 mg/dL [facility] Blood 11/20/2023 3:52 PM CDT Jessica Grullon MD LABORATORY Performing Organization Address City/[facility] Co de Phone Number [facility] [address] [place] [address], [place] * (ABNORMAL) POC GLUCOSE (11/20/2023 11:16 AM CDT) Pathologist [facility] POC Glucose 165(H) 70 - 100 mg/dL [facility] Blood 11/20/2023 11:1 6 AM CDT Jessica Grullon MD LABORATORY Performing Organization Address City/[facility] Co de Phone Number [facility] [address] [place] [address], [place] * (ABNORMAL) PANEL BASIC METABOLIC (BMP) (11/20/2023 8:18 AM CDT) Sodium 140 135 - 148 mmol/L [facility] Potassium 4.9 3.5 - 5.3 mmol/L [facility] Chloride 105 92 - 108 mmol/L [facility] CO2 26 22 - 30 mmol/L [facility] AnGap 9 8 - 16 mmol/L [facility] Glucose 147(H) 70 - 100 mg/dL [facility] BUN 21(H) 6 - 20 mg/dL [facility] Creatinine 2.02(H) 0.70 - 1.25 mg/dL [facility] Calcium 8.4(L) 8.6 - 10.0 mg/dL [facility] eGFR (2020 CKD-EPI) 41(L) >=60 ml/min/1.7 3m2 [facility] Comment: The estimated [...] AM CDT 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 APRN, CNP LABORATORY [facility] [address] [address] * (ABNORMAL) CBC WITH PLTS/AUTO DIFF (11/20/2023 8:18 AM CDT) WBC 10.90(H) 4.00 - 10.00 k/cmm [facility] RBC 3.17(L) 4.60 - 6.00 m/cmm [facility] Hgb 9.0(L) 13.1 - 17.5 g/dL [facility] Hematocrit 28.3(L) 40.0 - 51.0 % [facility] MCV 89.3 80.0 - 100.0 fL [facility] MCH 28.4 25.0 - 32.0 pg [facility] MCHC 31.8 31.0 - 36.0 g/dL [facility] RDW 14.3 11.5 - 14.5 % [facility] Plt 492(H) 150 - 400 k/cmm [facility] MPV 9.2 6.5 - 12.5 fL [facility] Automated Abs Neutrophil 6.51(H) 1.70 - 6.50 k/cmm [facility] Comment:Preliminary ANC, Fin al Result to Follow Abs Immature Granulocyte 0.57(H) 0.00 - 0.09 k/cmm [facility] Comment:The Immature Granulo cyte Absolute count contains metamyelocytes and myelocytes. Abs Neutrophil 6.51(H) 1.70 - 6.50 k/cmm [facility] Abs Lymphocyte 2.07 0.80 - 4.00 k/cmm [facility] Abs Monocyte 1.27(H) 0.20 - 1.00 k/cmm [facility] Abs Eosinophil 0.45 0.00 - 0.60 k/cmm [facility] Abs Basophil 0.03 0.00 - 0.20 k/cmm [facility] Blood 11/20/2023 8:18 AM CDT 11/20/2023 8:40 AM CDT 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 APRN, CNP LABORATORY Performing Organization Address [facility] Co de Phone Number [facility] [place] [address] * (ABNORMAL) POC GLUCOSE (11/20/2023 8:08 AM CDT) POC Glucose 133(H) 70 - 100 mg/dL [facility] Blood 11/20/2023 8:08 AM CDT Jessica Grullon MD LABORATORY Performing Organization Address City/[facility] Co de Phone Number [facility] [address] [place] [address] * (ABNORMAL) POC GLUCOSE (11/20/2023 6:30 AM CDT) POC Glucose 153(H) 70 - 100 mg/dL [facility] Blood 11/20/2023 6:30 AM CDT Jessica Grullon MD LABORATORY Performing Organization Address City/[facility]/ZIP Co de Phone Number [facility] [address] [place] [address] * (ABNORMAL) POC GLUCOSE (11/19/2023 9:03 PM CDT) POC Glucose 148(H) 70 - 100 mg/dL [facility] Blood 11/19/2023 9:03 PM CDT Jessica Grullon MD LABORATORY Performing Organization Address City/[facility] Co de Phone Number [facility] [address] [place] [address], [place] * (ABNORMAL) POC GLUCOSE (11/19/2023 3:55 PM CDT) POC Glucose 126(H) 70 - 100 mg/dL [facility] Blood 11/19/2023 3:55 PM CDT Jessica Grullon MD LABORATORY Performing Organization Address City/[facility] Co de Phone Number [facility] [address] [place] [address], [place] * (ABNORMAL) POC GLUCOSE (11/19/2023 12:03 PM CDT) POC Glucose 147(H) 70 - 100 mg/dL [facility] Blood 11/19/2023 12:0 3 PM CDT Jessica Grullon MD LABORATORY Performing Organization Address City/[facility] Co de Phone Number [facility] [address] [place] [address], [place] * (ABNORMAL) POC GLUCOSE (11/19/2023 11:07 AM CDT) POC Glucose 159(H) 70 - 100 mg/dL [facility] Blood 11/19/2023 11:0 7 AM CDT Jessica Grullon MD LABORATORY Performing Organization Address City/[facility] Co de Phone Number [facility] [address] [place] [address], * (ABNORMAL) POC GLUCOSE (11/19/2023 8:51 AM CDT) POC Glucose 185(H) 70 - 100 mg/dL [facility] Blood 11/19/2023 8:51 AM CDT Jessica Grullon MD LABORATORY Performing Organization Address [facility] Co de Phone Number [facility] [address] [place] [address], [place] * (ABNORMAL) PANEL BASIC METABOLIC (BMP) (11/19/2023 7:58 AM CDT) CO2 24 22 - 30 mmol/L [facility] Glucose 221(H) 70 - 100 mg/dL [facility] BUN 25(H) 6 - 20 mg/dL [facility] Creatinine 2.19(H) 0.70 - 1.25 mg/dL [facility] Calcium 7.8(L) 8.6 - 10.0 mg/dL [facility] Sodium 138 135 - 148 mmol/L [facility] Potassium 4.7 3.5 - 5.3 mmol/L [facility] Chloride 104 92 - 108 mmol/L [facility] eGFR (2020 CKD-EPI) 37(L) >=60 ml/min/1.7 3m2 [facility] Comment: The estimated glomerular filtration rate (eGFR) was calculated using the CKD-EPI 2020 creatinine equation, which does not include race as a factor. This equation is validated in individuals 18 years of age and older, and eGFR is normalized to a body surface area of 1.73m^2. AnGap 10 8 - 16 mmol/L [facility] Blood 11/19/2023 7:58 AM CDT 11/19/2023 8:34 AM CDT 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 APRN, CNP LABORATORY Performing Organization Address [facility]/ZIP Co de Phone Number [facility] [address] [address] * (ABNORMAL) CBC WITH PLTS/AUTO DIFF (11/19/2023 7:58 AM CDT) Pathologist [facility] WBC 10.66(H) 4.00 - 10.00 k/cmm [facility] RBC 3.14(L) 4.60 - 6.00 m/cmm [facility] Hgb 9.0(L) 13.1 - 17.5 g/dL [facility] Hematocrit 27.7(L) 40.0 - 51.0 % [facility] MCV 88.2 80.0 - 100.0 fL [facility] MCH 28.7 25.0 - 32.0 pg [facility] MCHC 32.5 31.0 - 36.0 g/dL [facility] RDW 14.3 11.5 - 14.5 % [facility] Plt 482(H) 150 - 400 k/cmm [facility] MPV 9.2 6.5 - 12.5 fL [facility] Automated Abs Neutrophil 6.41 1.70 - 6.50 k/cmm [facility] Comment:Preliminary ANC, Fin al Result to Follow Polychromasia Slight [facility] Abs Neutrophil 8.10(H) 1.70 - 6.50 k/cmm [facility] Abs Lymphocyte 1.07 0.80 - 4.00 k/cmm [facility] Abs Monocyte 0.85 0.20 - 1.00 k/cmm [facility] Abs Eosinophil 0.32 0.00 - 0.60 k/cmm [facility] Abs Basophil 0.11 0.00 - 0.20 k/cmm [facility] Abs Myelocyte 0.21(H) 0.00 - 0.00 k/cmm [facility] Blood 11/19/2023 7:58 AM CDT 11/19/2023 8:34 AM CDT 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 APRN, CNP LABORATORY [facility] [address] [id number] * (ABNORMAL) POC GLUCOSE (11/19/2023 6:37 AM CDT) Pathologist [facility] POC Glucose 212(H) 70 - 100 mg/dL [facility] Blood 11/19/2023 6:37 AM CDT Jessica Grullon MD LABORATORY Performing Organization Address City/[facility]/ZIP Co de Phone Number [facility] [address] [place] [address], [place] * POC GLUCOSE (11/18/2023 8:54 PM CDT) POC Glucose 99 70 - 100 mg/dL [facility] Blood 11/18/2023 8:54 PM CDT Jessica Grullon MD LABORATORY Performing Organization Address City/[facility]/ZIP Co de Phone Number [facility] [address] [place] [address], [place] * (ABNORMAL) POC GLUCOSE (11/18/2023 8:20 PM CDT) POC Glucose 69(L) 70 - 100 mg/dL [facility] Blood 11/18/2023 8:20 PM CDT Jessica Grullon MD LABORATORY Performing Organization Address City/[facility] Co de Phone Number [facility] [address] [place] [address], [place] * (ABNORMAL) POC GLUCOSE (11/18/2023 4:37 PM CDT) POC Glucose 154(H) 70 - 100 mg/dL [facility] Blood 11/18/2023 4:37 PM CDT Jessica Grullon MD LABORATORY Performing Organization Address City/[facility]/ZIP Co de Phone Number [facility] [address] [place] [address], [place] * (ABNORMAL) POC GLUCOSE (11/18/2023 11:03 AM CDT) Pathologist [facility] POC Glucose 158(H) 70 - 100 mg/dL [facility] Blood 11/18/2023 11:0 3 AM CDT Jessica Grullon MD LABORATORY Performing Organization Address City/[facility]/ZIP Co de Phone Number [facility] [address] [place] [address], * (ABNORMAL) PANEL BASIC METABOLIC (BMP) (11/18/2023 9:02 AM CDT) [facility] CO2 24 22 - 30 mmol/L [facility] Glucose 180(H) 70 - 100 mg/dL [facility] BUN 27(H) 6 - 20 mg/dL [facility] Creatinine 2.17(H) 0.70 - 1.25 mg/dL [facility] Calcium 8.2(L) 8.6 - 10.0 mg/dL [facility] Sodium 137 135 - 148 mmol/L [facility] Potassium 4.5 3.5 - 5.3 mmol/L [facility] Chloride 104 92 - 108 mmol/L [facility] eGFR (2020 CKD-EPI) 37(L) >=60 ml/min/1.7 3m2 [facility] Comment: The estimated glomerular filtration rate (eGFR) was calculated using the CKD-EPI 2020 creatinine equation, which does not include race as a factor. This equation is validated in individuals 18 years of age and older, and eGFR is normalized to a body surface area of 1.73m^2. AnGap 9 8 - 16 mmol/L [facility] Blood 11/18/2023 9:02 AM CDT 11/18/2023 9:21 AM CDT 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 APRN, CNP LABORATORY [facility] [address] [place] [address] * (ABNORMAL) CBC WITH PLTS/AUTO DIFF (11/18/2023 9:02 AM CDT) WBC 10.61(H) 4.00 - 10.00 k/cmm [facility] RBC 3.36(L) 4.60 - 6.00 m/cmm [facility] Hgb 9.4(L) 13.1 - 17.5 g/dL [facility] Hematocrit 29.5(L) 40.0 - 51.0 % [facility] MCV 87.8 80.0 - 100.0 fL [facility] MCH 28.0 25.0 - 32.0 pg [facility] MCHC 31.9 31.0 - 36.0 g/dL [facility] RDW 14.2 11.5 - 14.5 % [facility] Plt 495(H) 150 - 400 k/cmm [facility] MPV 9.2 6.5 - 12.5 fL [facility] Automated Abs Neutrophil 6.34 1.70 - 6.50 k/cmm [facility] Comment:Preliminary ANC, Fin al Result to Follow NUC RBC 1.0(H) 0.0 - 0.0 /100WBC [facility] Polychromasia Slight [facility] Abs Neutrophil 7.32(H) 1.70 - 6.50 k/cmm [facility] Abs Lymphocyte 2.23 0.80 - 4.00 k/cmm [facility] Abs Monocyte 0.85 0.20 - 1.00 k/cmm [facility] Abs Eosinophil 0.21 0.00 - 0.60 k/cmm [facility] Blood 11/18/2023 9:02 AM CDT 11/18/2023 9:21 AM CDT 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 APRN, CNP LABORATORY [facility] [address] [address] * (ABNORMAL) POC GLUCOSE (11/18/2023 6:21 AM CDT) POC Glucose 194(H) 70 - 100 mg/dL [facility] Blood 11/18/2023 6:21 AM CDT Jessica Grullon MD LABORATORY [facility] [address] [place] [address], [place] * (ABNORMAL) POC GLUCOSE (11/17/2023 8:19 PM CDT) [facility] POC Glucose 143(H) 70 - 100 mg/dL [facility] Blood 11/17/2023 8:19 PM CDT Jessica Grullon MD LABORATORY Performing Organization Address [facility] Co de Phone Number [facility] [address] [place] [address], [place] * (ABNORMAL) POC GLUCOSE (11/17/2023 4:40 PM CDT) [facility] POC Glucose 235(H) 70 - 100 mg/dL [facility] Blood 11/17/2023 4:40 PM CDT Jessica Grullon MD LABORATORY Performing Organization Address [facility] de Phone Number [facility] [address] [place] [address], [place] * (ABNORMAL) CBC WITH PLTS/AUTO DIFF (11/17/2023 2:35 PM CDT) [facility] WBC 11.70(H) 4.00 - 10.00 k/cmm [facility] RBC 3.37(L) 4.60 - 6.00 m/cmm [facility] Hgb 9.6(L) 13.1 - 17.5 g/dL [facility] Hematocrit 29.6(L) 40.0 - 51.0 % [facility] MCV 87.8 80.0 - 100.0 fL [facility] MCH 28.5 25.0 - 32.0 pg [facility] MCHC 32.4 31.0 - 36.0 g/dL [facility] RDW 14.2 11.5 - 14.5 % [facility] Plt 466(H) 150 - 400 k/cmm [facility] MPV 9.3 6.5 - 12.5 fL [facility] Automated Abs Neutrophil 7.44(H) 1.70 - 6.50 k/cmm [facility] Comment:Preliminary ANC, Fin al Result to Follow Abs Immature Granulocyte 0.52(H) 0.00 - 0.09 k/cmm [facility] Comment:The Immature Granulo cyte Absolute count contains metamyelocytes and myelocytes. Abs Neutrophil 7.44(H) 1.70 - 6.50 k/cmm [facility] Abs Lymphocyte 1.96 0.80 - 4.00 k/cmm [facility] Abs Monocyte 1.45(H) 0.20 - 1.00 k/cmm [facility] Abs Eosinophil 0.27 0.00 - 0.60 k/cmm [facility] Abs Basophil 0.06 0.00 - 0.20 k/cmm [facility] Polychromasia Slight [facility] Blood 11/17/2023 2:35 PM CDT 11/17/2023 2:57 PM CDT Scar Leyva MD LABORATORY [facility] [place] [address] * (ABNORMAL) PANEL BASIC METABOLIC (BMP) (11/17/2023 2:35 PM CDT) CO2 21(L) 22 - 30 mmol/L [facility] Glucose 252(H) 70 - 100 mg/dL [facility] BUN 30(H) 6 - 20 mg/dL [facility] Creatinine 2.27(H) 0.70 - 1.25 mg/dL [facility] Calcium 8.2(L) 8.6 - 10.0 mg/dL [facility] Sodium 137 135 - 148 mmol/L [facility] Potassium 4.3 3.5 - 5.3 mmol/L [facility] Chloride 104 92 - 108 mmol/L [facility] eGFR (2020 CKD-EPI) 35(L) >=60 ml/min/1.7 3m2 [facility] Comment: The estimated glomerular filtration rate (eGFR) was calculated using the CKD-EPI 2020 creatinine equation, which does not include race as a factor. This equation is validated in individuals 18 years of age and older, and eGFR is normalized to a body surface area of 1.73m^2. AnGap 12 8 - 16 mmol/L [facility] Blood 11/17/2023 2:35 PM CDT 11/17/2023 2:57 PM CDT Scar Leyva MD LABORATORY Performing Organization Address [facility] Co de Phone Number [address] [address] * ANTI XA ASSAY LMW HEPARIN (11/17/2023 11:47 AM CDT) Anti XA LMW <0.04 IU/mL [facility] Comment: Anti Xa Assay LMW Heparin Therapeutic Ranges: 0.4-1.1 IU/mL for twice daily 1.0-2.0 IU/mL for once daily Blood 11/17/2023 11:4 7 AM CDT 11/17/2023 12:01 PM CDT Zac Churchill MD LABORATORY Performing Organization Address [facility] Co de Phone Number [address] [address] * (ABNORMAL) POC GLUCOSE (11/17/2023 11:25 AM CDT) POC Glucose 190(H) 70 - 100 mg/dL [facility] Blood 11/17/2023 11:2 5 AM CDT Jessica Grullon MD LABORATORY Performing Organization Address City/[facility]/ZIP Co de Phone Number [facility] [address] [place] [address], * XR FOOT LEFT 3 V AP/OBL/LAT* [...] at the MTP joint. Reading Radiologist: Grey Bydr Che Palomo DPM RAD XRAY * (ABNORMAL) POC GLUCOSE (11/17/2023 10:01 AM CDT) POC Glucose 176(H) 70 - 100 mg/dL [facility] Blood 11/17/2023 10:0 1 AM CDT Jessica Grullon MD LABORATORY Performing Organization Address City/State/[facility] Co de Phone Number [facility] [address] [place] [address], * (ABNORMAL) TISSUE CULTURE:INCLUDES GRAM STAIN (11/17/2023 9:35 AM CDT) Final Report Positive Culture Previous positive called. Rare METHICILLIN RESISTANT Staphylococcus aureus (MRSA) isolated. 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 One colony Staphylococcus lugdunensis isolated. (POS) [facility] Organism METHICILLIN RESISTANT STAPHYLOCOCCUS AUREUS (MRSA)(POS) [facility] Organism STAPHYLOCOCCUS LUGDUNENSIS(POS) [facility] Gram Stain Report Few WBC's seen. No organisms seen. Gram stain electronically reported to and acknowledged by: Che Palomo MD for Podiatric Surgery on 11/17/2023 11:56:22 by Silver Luna MLS [facility] Tissue TOE STRUCTURE / [...] Staphylococcus lugdunensis Vancomycin VITEK JORDY <=0.5: Sensitive Che Palomo [facility] MICROBIOLOGY [facility] [address] [place] [address] * FUNGUS CULTURE:INCLUDES SUHAS (11/17/2023 9:35 AM CDT) Final Report No fungus isolated. [facility] SUHAS Prep No fungal elements seen. [facility] Tissue TOE STRUCTURE / Unknown 11/17/2023 9:35 AM CDT Che Palomo [facility] LAB MICROBIOLOGY Performing Organization Address [facility] Co de Phone Number [facility] [address] [address] * ANAEROBE CULTURE (11/17/2023 9:35 AM CDT) Final Report No anaerobes isolated. [facility] Tissue TOE STRUCTURE / Unknown 11/17/2023 9:35 AM CDT Che Palomo [facility] MICROBIOLOGY Performing Organization Address [facility] Co de Phone Number [facility] [address] [address] * AFB CULTURE:INCLUDES AFB SMEAR (11/17/2023 9:35 AM CDT) Final Report No acid fast bacilli isolated. [facility] Acid Fast Stain No acid fast bacilli seen. [facility] Tissue TOE STRUCTURE / Unknown 11/17/2023 9:35 AM CDT Che Palomo [facility] MICROBIOLOGY Performing Organization Address [facility] de Phone Number [facility] [address] [address] * M TUBERCULOSIS AMPLIFICATION (11/17/2023 9:32 AM CDT) Final Report M. tuberculosis complex DNA not detected. [facility] Tissue TOE STRUCTURE / Unknown 11/17/2023 9:32 AM CDT 11/18/2023 9:56 AM CDT Comment:1: Left hallux soft tissue dirty Narrative [facility] - 11/18/2023 2:41 PM CDT This assay uses PCR nucleic acid amplification to detect Mycobacterium tuberculosis complex DNA. ??This test was developed and its performance characteristics determined by [facility]. ??It has not been cleared or approved by the U.S. Food and Drug Administration. ??FDA does not require this test to go through premarket FDA review. ??This test is used for clinical purposes. ??It should not be regarded as investigational or for research. ??[facility] is certified under the Clinical Laboratory Improvement Amendments of 1988 (CLIA) as qualified to perform high complexity clinical laboratory testing. Che Palomo [facility] MICROBIOLOGY [facility] [address] [place] [address] * (ABNORMAL) TISSUE CULTURE:INCLUDES GRAM STAIN (11/17/2023 9:32 AM CDT) Final Report Positive Culture Rare METHICILLIN RESISTANT Staphylococcus aureus (MRSA) isolated. 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 Rare Group B beta hemolytic Streptococcus isolated. Pseudomonas aeruginosa isolated in broth only. Results electronically reported to and acknowledged by: Paula Vazquez MD, in Surgery [place], at ?? 11/23/2023 07:49:11 by Pam Alvarado MLS. (POS) [facility] Organism METHICILLIN RESISTANT STAPHYLOCOCCUS AUREUS (MRSA)(POS) [facility] Organism GROUP B BETA HEMOLYTIC STREPTOCOCCUS(POS) [facility] Organism PSEUDOMONAS AERUGINOSA(POS) [facility] Gram Stain Report Positive Gram stain Gram stain electronically reported to and acknowledged by: Che Zheng MD for Podiatric Surgery on 11/17/2023 11:55:10 by Silver Luna MLS Rare WBC's seen. Rare gram positive cocci clusters. (POS) [facility] Tissue TOE STRUCTURE / [...] aeruginosa Tobramycin VITEK JORDY <=1: Sensitive Che [employer] DP LAB MICROBIOLOGY Performing Organization Address [facility] Co de Phone Number [facility] [address] [address] * FUNGUS CULTURE:INCLUDES SUHAS (11/17/2023 9:32 AM CDT) Final Report No fungus isolated. [facility] SUHAS Prep No fungal elements seen. [facility] Tissue TOE STRUCTURE / Unknown 11/17/2023 9:32 AM CDT [employer] [facility] LAB MICROBIOLOGY Performing Organization Address [facility] Co de Phone Number [facility] [address] [address] * (ABNORMAL) ANAEROBE CULTURE (11/17/2023 9:32 AM CDT) Final Report Positive Culture Rare Veillonella parvula group isolated. Rare Actinomyces europaeus isolated. (POS) [facility] Organism VEILLONELLA PARVULA GROUP(POS) [facility] Organism ACTINOMYCES EUROPAEUS(POS) [facility] Tissue TOE STRUCTURE / Unknown 11/17/2023 9:32 AM CDT [employer] [facility] LAB MICROBIOLOGY Performing Organization Address [facility] Co de Phone Number [facility] [address] [address] * AFB CULTURE:INCLUDES AFB SMEAR (11/17/2023 9:32 AM CDT) Final Report No acid fast bacilli isolated. [facility] Acid Fast Stain No acid fast bacilli seen. [facility] Tissue TOE STRUCTURE / Unknown 11/17/2023 9:32 AM CDT Che Palomo DPM LAB MICROBIOLOGY [facility] [address] [place] [address] * SURGICAL PATHOLOGY (11/17/2023 9:31 AM CDT) SURG PATH FINAL ?Surgical Pathology Report Collection Date: ?11/17/2023 09:31 CDT ?Ordering Physician: ? CHE PALOMO Received Date: ?11/17/2023 09:49 CDT ?Accession Number: ? [id number] ? Surgical Pathology Final Report Specimen Type: [...] underlying soft tissue with moderate osseous softening. Sales Planning Manager sections are submitted on decalcification as follows: [...] Rodriguez M.D. Attending Pathologist. DDB/DDB 11.17.2023 10:26 [facility] AP Specimen FOOT STRUCTURE / Unknown 11/17/2023 9:31 AM CDT Comment:OR: Routine gross an d microscopic examination Tissue: Left Hallux Site: left foot Additional clinical information: Che Palomo DPM LAB PATHOLOGY Performing Organization Address [facility] Co de Phone Number [facility] [address] [address] * (ABNORMAL) POC GLUCOSE (11/17/2023 9:14 AM CDT) POC Glucose 169(H) 70 - 100 mg/dL [facility] Blood 11/17/2023 9:14 AM CDT Jessica Grullon MD LABORATORY Performing Organization Address [facility]/ZIP Co de Phone Number [facility] [address] [place] [address], * ULT ARTERIAL LOWER EXTREMITY LEFT (11/17/2023 [...] POC Glucose 205(H) 70 - 100 mg/dL [facility] Blood 11/17/2023 6:07 AM CDT Jessica Grullon MD LABORATORY Performing Organization Address City/[facility] Co de Phone Number [facility] [address] [place] [address], [place] * (ABNORMAL) POC GLUCOSE (11/16/2023 8:46 PM CDT) POC Glucose 141(H) 70 - 100 mg/dL [facility] Blood 11/16/2023 8:46 PM CDT Jessica Grullon MD LABORATORY Performing Organization Address [facility] Co de Phone Number [facility] [address] [place] [address], [place] * XR FOOT LEFT 3 V [...] POC Glucose 148(H) 70 - 100 mg/dL [facility] Blood 11/16/2023 4:14 PM CDT Jessica Grullon MD LABORATORY [facility] [address] [place] [address], * (ABNORMAL) POC GLUCOSE (11/16/2023 10:55 AM CDT) Pathologist [facility] POC Glucose 203(H) 70 - 100 mg/dL [facility] Blood 11/16/2023 10:5 5 AM CDT Jessica Grullon MD LABORATORY Performing Organization Address City/[facility] Co de Phone Number [facility] [address] [place] [address], * (ABNORMAL) CBC WITH PLATELET (11/16/2023 8:45 AM CDT) [facility] WBC 13.08(H) 4.00 - 10.00 k/cmm [facility] RBC 3.38(L) 4.60 - 6.00 m/cmm [facility] Hgb 9.6(L) 13.1 - 17.5 g/dL [facility] Hematocrit 28.9(L) 40.0 - 51.0 % [facility] MCV 85.5 80.0 - 100.0 fL [facility] MCH 28.4 25.0 - 32.0 pg [facility] MCHC 33.2 31.0 - 36.0 g/dL [facility] RDW 13.4 11.5 - 14.5 % [facility] Plt 475(H) 150 - 400 k/cmm [facility] MPV 9.5 6.5 - 12.5 fL [facility] Blood 11/16/2023 8:45 AM CDT 11/16/2023 8:58 AM CDT 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 APRN, CNP LABORATORY [facility] [address] [place] [address] * (ABNORMAL) PANEL BASIC METABOLIC (BMP) (11/16/2023 8:45 AM CDT) CO2 21(L) 22 - 30 mmol/L [facility] Glucose 261(H) 70 - 100 mg/dL [facility] BUN 35(H) 6 - 20 mg/dL [facility] Creatinine 2.67(H) 0.70 - 1.25 mg/dL [facility] Calcium 8.3(L) 8.6 - 10.0 mg/dL [facility] Sodium 139 135 - 148 mmol/L [facility] Potassium 4.4 3.5 - 5.3 mmol/L [facility] Chloride 106 92 - 108 mmol/L [facility] eGFR (2020 CKD-EPI) 29(L) >=60 ml/min/1.7 3m2 [facility] Comment: The estimated glomerular filtration rate (eGFR) was calculated using the CKD-EPI 2020 creatinine equation, which does not include race as a factor. This equation is validated in individuals 18 years of age and older, and eGFR is normalized to a body surface area of 1.73m^2. AnGap 12 8 - 16 mmol/L [facility] Blood 11/16/2023 8:45 AM CDT 11/16/2023 8:57 AM CDT 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 APRN, CNP LABORATORY [facility] [place] [address] * (ABNORMAL) POC GLUCOSE (11/16/2023 7:37 AM CDT) POC Glucose 180(H) 70 - 100 mg/dL [facility] Blood 11/16/2023 7:37 AM CDT Jessica Grullon MD LABORATORY [facility] [address] [place] [address] * (ABNORMAL) POC GLUCOSE (11/15/2023 9:23 PM CDT) POC Glucose 144(H) 70 - 100 mg/dL [facility] Blood 11/15/2023 9:23 PM CDT Jessica Grullon MD LABORATORY Performing Organization Address City/[facility]/ZIP Co de Phone Number [facility] [address] [place] [address], * (ABNORMAL) POC GLUCOSE (11/15/2023 4:18 PM CDT) POC Glucose 159(H) 70 - 100 mg/dL [facility] Blood 11/15/2023 4:18 PM CDT Jessica Grullon MD LABORATORY Performing Organization Address [facility] Co de Phone Number [facility] [address] [place] [address], * (ABNORMAL) POC GLUCOSE (11/15/2023 11:19 AM CDT) POC Glucose 221(H) 70 - 100 mg/dL [facility] Blood 11/15/2023 11:1 9 AM CDT Jessica Grullon MD LABORATORY Performing Organization Address [facility] Co de Phone Number [facility] [address] [place] [address], [place] * (ABNORMAL) PANEL BASIC METABOLIC (BMP) (11/15/2023 7:39 AM CDT) CO2 21(L) 22 - 30 mmol/L [facility] Glucose 176(H) 70 - 100 mg/dL [facility] BUN 38(H) 6 - 20 mg/dL [facility] Creatinine 2.86(H) 0.70 - 1.25 mg/dL [facility] Calcium 7.6(L) 8.6 - 10.0 mg/dL [facility] Sodium 136 135 - 148 mmol/L [facility] Potassium 4.2 3.5 - 5.3 mmol/L [facility] Chloride 102 92 - 108 mmol/L [facility] eGFR (2020 CKD-EPI) 27(L) >=60 ml/min/1.7 3m2 [facility] Comment: The estimated glomerular filtration rate (eGFR) was calculated using the CKD-EPI 2020 creatinine equation, which does not include race as a factor. This equation is validated in individuals 18 years of age and older, and eGFR is normalized to a body surface area of 1.73m^2. AnGap 13 8 - 16 mmol/L [facility] Blood 11/15/2023 7:39 AM CDT 11/15/2023 7:58 AM CDT Shani Shaw MD LABORATORY Performing Organization Address [facility] de Phone Number [facility] [address] [phone] * (ABNORMAL) CREATININE, SERUM (11/15/2023 7:39 AM CDT) Creatinine 2.83(H) 0.70 - 1.25 mg/dL [facility] eGFR (2020 CKD-EPI) 27(L) >=60 ml/min/1.7 3m2 [facility] Comment: The estimated [...] Shani Shaw MD LABORATORY Performing Organization Address [facility] Co de Phone Number [facility] [address] [id number] * HEPATITIS C ANTIBODY WITH CONDITIONAL PCR (11/15/2023 7:39 AM CDT) Hep C Lilly Nonreactive Nonreactive [facility] Comment:Performance characte ristics have not been established with this test on patients less than 10 years of age. Blood 11/15/2023 7:39 AM CDT 11/15/2023 7:58 AM CDT Zac Churchill MD LABORATORY [facility] [address] [id number] * HIV COMBO (11/15/2023 7:39 AM CDT) HIV Antigen-Antibody Nonreactive Nonreactive [facility] Comment:Performance characte ristics have not been established with this test on patients less than 2 years of age. Blood 11/15/2023 7:39 AM CDT 11/15/2023 7:58 AM CDT Zac Chruchill MD LABORATORY Performing Organization Address City/[facility] Co de Phone Number [facility] [address] [phone] * (ABNORMAL) POC GLUCOSE (11/15/2023 6:16 AM CDT) POC Glucose 154(H) 70 - 100 mg/dL [facility] Blood 11/15/2023 6:16 AM CDT Jessica Grullon MD LABORATORY Performing Organization Address City/[facility] [place] [address], * (ABNORMAL) POC GLUCOSE (11/14/2023 8:34 PM CDT) POC Glucose 159(H) 70 - 100 mg/dL [facility] Blood 11/14/2023 8:34 PM CDT Jessica Grullon MD LABORATORY [facility] [place] [address], * (ABNORMAL) POC GLUCOSE (11/14/2023 4:36 PM CDT) POC Glucose 182(H) 70 - 100 mg/dL [facility] Blood 11/14/2023 4:36 PM CDT Jessica Grullon MD LABORATORY [facility] [address] [place] [address], * (ABNORMAL) PROTEIN TO CREAT RATIO,URINE (11/14/2023 9:58 AM CDT) TPU 22(H) 0 - 11 mg/dL [facility] Creat Urine 89 30 - 125 mg/dL [facility] Protein to Creat Ratio, Ur 0.25(H) 0.00 - 0.06 mg/mg [facility] Urine 11/14/2023 9:58 AM CDT 11/14/2023 10:06 AM CDT Zac Churchill MD LABORATORY Performing Organization Address City/[facility]/ZIP Co de Phone Number [facility] [place] [address] * (ABNORMAL) URINALYSIS,TOTAL (11/14/2023 9:58 AM CDT) Pathologist [facility] Color YELLOW YELLOW [facility] Appearance CLEAR CLEAR [facility] Urine Glucose 500(A) NEGATIVE mg/dL [facility] Bili UA NEGATIVE NEGATIVE [facility] Ketones NEGATIVE NEGATIVE [facility] Specific [place] 1.012 1.003 - 1.030 [facility] Blood Ur NEGATIVE Neg-Trace [facility] PH Urine 5.5 5.0 - 7.0 [facility] Protein Ur TRACE Neg-Trace [facility] Urobilinogen NORMAL NORMAL EU/dL [facility] Nitrite Ur NEGATIVE NEGATIVE [facility] Leuk Est NEGATIVE Neg-Trace [facility] WBC Ur 0-5 0 - 5 perHPF [facility] RBC Ur 0-3 0 - 3 perHPF [facility] Mucus 1+ perLPF [facility] Urinalysis Performed at: [facility] Urine 11/14/2023 9:58 AM CDT 11/14/2023 10:06 AM CDT Zac Churchill MD LABORATORY Performing Organization Address City/[facility]/ZIP Co de Phone Number [facility] [place] [address] * (ABNORMAL) POC GLUCOSE (11/14/2023 6:14 AM CDT) [facility] POC Glucose 171(H) 70 - 100 mg/dL [facility] Blood 11/14/2023 6:14 AM CDT Jessica Grullon MD LABORATORY Performing Organization Address City/[facility]/ZIP Co de Phone Number [facility] [address] [place] [address] * VANCOMYCIN LEVEL (11/14/2023 5:30 AM CDT) [facility] Vancomycin 19.9 mcg/mL [facility] Comment:Expected Range (Trou gh): 10-20 mcg/ml Blood 11/14/2023 5:30 AM CDT 11/14/2023 5:56 AM CDT Zac Churchill MD LABORATORY Performing Organization Address [facility] Co de Phone Number [facility] [place] [address] * (ABNORMAL) CYSTATIN C (11/14/2023 5:30 AM CDT) [facility] Cystatin C 1.78(H) 0.61 - 0.95 mg/L [facility] eGFR by Cystatin C 38(L) >=60 ml/min/1.7 3m2 [facility] Comment: Estimated GFR calculated using the CKD-EPI Cystatin C (2012) equation. Stage ? Description ?eGFR Range ??1.......Normal or increased eGFR.......90 or Greater ??2.......Mildly decreased eGFR..........60-89 ??3.......Moderately decreased eGFR......30-59 ??4.......Severely decreased eGFR........15-29 ??5.......Kidney Failure.................Less than 15 Blood 11/14/2023 5:30 AM CDT 11/14/2023 5:56 AM CDT Zac Churchill MD LABORATORY Performing Organization Address [facility] Co de Phone Number [facility] [address] [address] * PHOSPHORUS (11/14/2023 5:30 AM CDT) Pathologist [facility] Phosphorus 4.3 2.5 - 4.5 mg/dL [facility] Blood 11/14/2023 5:30 AM CDT 11/14/2023 5:56 AM CDT Zac Churchill MD LABORATORY Performing Organization Address [facility] de Phone Number [facility] [address] [address] * (ABNORMAL) PANEL BASIC METABOLIC (BMP) (11/14/2023 5:30 AM CDT) Sodium 136 135 - 148 mmol/L [facility] Potassium 4.1 3.5 - 5.3 mmol/L [facility] Chloride 103 92 - 108 mmol/L [facility] CO2 24 22 - 30 mmol/L [facility] AnGap 9 8 - 16 mmol/L [facility] Glucose 194(H) 70 - 100 mg/dL [facility] BUN 40(H) 6 - 20 mg/dL [facility] Creatinine 3.21(H) 0.70 - 1.25 mg/dL [facility] Calcium 8.2(L) 8.6 - 10.0 mg/dL [facility] eGFR (2020 CKD-EPI) 23(L) >=60 ml/min/1.7 3m2 [facility] Comment: The estimated [...] Zac Churchill MD LABORATORY Performing Organization Address [facility] de Phone Number [address] [address] * MAGNESIUM (11/14/2023 5:30 AM CDT) Magnesium 2.4 1.6 - 2.6 mg/dL [facility] Blood 11/14/2023 5:30 AM CDT 11/14/2023 5:56 AM CDT Zac Churchill MD LABORATORY Performing Organization Address [facility] de Phone Number [address] [address] * (ABNORMAL) CBC WITH PLATELET (11/14/2023 5:30 AM CDT) WBC 11.96(H) 4.00 - 10.00 k/cmm [facility] RBC 3.21(L) 4.60 - 6.00 m/cmm [facility] Hgb 9.1(L) 13.1 - 17.5 g/dL [facility] Hematocrit 28.5(L) 40.0 - 51.0 % [facility] MCV 88.8 80.0 - 100.0 fL [facility] MCH 28.3 25.0 - 32.0 pg [facility] MCHC 31.9 31.0 - 36.0 g/dL [facility] RDW 13.4 11.5 - 14.5 % [facility] Plt 372 150 - 400 k/cmm [facility] MPV 9.8 6.5 - 12.5 fL [facility] Blood 11/14/2023 5:30 AM CDT 11/14/2023 5:54 AM CDT Zac Churchill MD LABORATORY [facility] [address] [place] [address] * (ABNORMAL) POC GLUCOSE (11/13/2023 9:00 PM CDT) POC Glucose 206(H) 70 - 100 mg/dL [facility] Blood 11/13/2023 9:00 PM CDT Jessica Grullon MD LABORATORY [facility] [address] [place] [address], * (ABNORMAL) POC GLUCOSE (11/13/2023 4:44 PM CDT) POC Glucose 181(H) 70 - 100 mg/dL [facility] Blood 11/13/2023 4:44 PM CDT Jessica Grullon MD LABORATORY Performing Organization Address City/[facility]/ZIP Co de Phone Number [facility] [address] [address], [place] * (ABNORMAL) POC GLUCOSE (11/13/2023 10:56 AM CDT) POC Glucose 170(H) 70 - 100 mg/dL [facility] Blood 11/13/2023 10:5 6 AM CDT Jessica Grullon MD LABORATORY [facility] [address] [place] [address], [place] * URINE CHLAMYDIA AND NEISSERIAE GONORRHOEAE AMPLIFICATION (11/13/2023 10:45 AM CDT) Chlamydia Amplification - Urine Negative Negative [facility] Comment:Test performed by tr anscription mediated amplification and is FDA approved for genital and urine specimens. N. Gonorrhea Amplification - Urine Negative Negative [facility] Comment:Test performed by tr anscription mediated amplification and is FDA approved for genital and urine specimens. Urine 11/13/2023 10:4 5 AM CDT 11/13/2023 3:03 PM CDT Narrative [facility] - 11/15/2023 12:29 PM CDT For Urines, use first void. Zac Churchill MD LABORATORY Performing Organization Address City/[facility]/ZIP Co de Phone Number [address] [address] * HEPATITIS B SURFACE ANTIGEN (11/13/2023 10:20 AM CDT) Pathologist [facility] HBV Surface Ag Nonreactive Nonreactive [facility] Comment: Testing performed at: [address] [address] Blood 11/13/2023 10:2 0 AM CDT 11/13/2023 10:27 AM CDT Zac Churchill MD LABORATORY Performing Organization Address [facility] Co de Phone Number [address] [address] * HEPATITIS B SURFACE ANTIBODY (11/13/2023 10:20 AM CDT) Pathologist [facility] HBsAb Quant <3.31 mIU/ml [facility] Comment:The Hepatitis B Surf gabriella Antibody quantitation is less than 8.00 mIU/mL. There is no evidence of an antibody response to a hepatitis B vaccination or recovery from a hepatitis B infection. This patient is presumed non-immune to hepatitis B. HBsAb Interpretation Nonreactive [facility] Blood 11/13/2023 10:2 0 AM CDT 11/13/2023 10:27 AM CDT Zac Churchill MD LABORATORY Performing Organization Address City/[facility]/ZIP Co de Phone Number [address] [address] * (ABNORMAL) POC GLUCOSE (11/13/2023 6:08 AM CDT) [facility] POC Glucose 154(H) 70 - 100 mg/dL [facility] Blood 11/13/2023 6:08 AM CDT Jessica Grullon MD LABORATORY [facility] [address] [place] [address], * (ABNORMAL) CYSTATIN C (11/13/2023 5:18 AM CDT) [facility] eGFR by Cystatin C 31(L) >=60 ml/min/1.7 3m2 [facility] Comment: Estimated GFR calculated using the CKD-EPI Cystatin C (2012) equation. Stage ? Description ?eGFR Range ??1.......Normal or increased eGFR.......90 or Greater ??2.......Mildly decreased eGFR..........60-89 ??3.......Moderately decreased eGFR......30-59 ??4.......Severely decreased eGFR........15-29 ??5.......Kidney Failure.................Less than 15 Cystatin C 2.11(H) 0.61 - 0.95 mg/L [facility] Blood 11/13/2023 5:18 AM CDT 11/13/2023 5:47 AM CDT Zac Churchill MD LABORATORY [facility] [address] [place] [address] * VANCOMYCIN LEVEL (11/13/2023 5:18 AM CDT) [facility] Vancomycin 35.4 mcg/mL [facility] Comment:Expected Range (Trou gh): 10-20 mcg/ml Blood 11/13/2023 5:18 AM CDT 11/13/2023 5:47 AM CDT Zac Churchill MD LABORATORY Performing Organization Address City/[facility] Co de Phone Number [facility] [address] [address] * (ABNORMAL) PHOSPHORUS (11/13/2023 5:18 AM CDT) Phosphorus 5.2(H) 2.5 - 4.5 mg/dL [facility] Blood 11/13/2023 5:18 AM CDT 11/13/2023 5:47 AM CDT Zac Churchill MD LABORATORY Performing Organization Address [facility] de Phone Number [facility] [address] [address] * (ABNORMAL) PANEL BASIC METABOLIC (BMP) (11/13/2023 5:18 AM CDT) AnGap 12 8 - 16 mmol/L [facility] Sodium 137 135 - 148 mmol/L [facility] Chloride 103 92 - 108 mmol/L [facility] BUN 37(H) 6 - 20 mg/dL [facility] Calcium 7.8(L) 8.6 - 10.0 mg/dL [facility] CO2 22 22 - 30 mmol/L [facility] Glucose 168(H) 70 - 100 mg/dL [facility] Creatinine 3.04(H) 0.70 - 1.25 mg/dL [facility] Potassium 4.4 3.5 - 5.3 mmol/L [facility] eGFR (2020 CKD-EPI) 25(L) >=60 ml/min/1.7 3m2 [facility] Comment: The estimated [...] Zac Churchill MD LABORATORY Performing Organization Address City/[facility]/ZIP Co de Phone Number [facility] [address] [address] * MAGNESIUM (11/13/2023 5:18 AM CDT) Magnesium 2.3 1.6 - 2.6 mg/dL [facility] Blood 11/13/2023 5:18 AM CDT 11/13/2023 5:47 AM CDT Zac Churchill MD LABORATORY Performing Organization Address [facility] Co de Phone Number [facility] [address] [address] * (ABNORMAL) CBC WITH PLATELET (11/13/2023 5:18 AM CDT) WBC 13.27(H) 4.00 - 10.00 k/cmm [facility] RBC 3.28(L) 4.60 - 6.00 m/cmm [facility] Hgb 9.2(L) 13.1 - 17.5 g/dL [facility] Hematocrit 30.0(L) 40.0 - 51.0 % [facility] MCV 91.5 80.0 - 100.0 fL [facility] MCH 28.0 25.0 - 32.0 pg [facility] MCHC 30.7(L) 31.0 - 36.0 g/dL [facility] RDW 13.5 11.5 - 14.5 % [facility] Plt 317 150 - 400 k/cmm [facility] MPV 10.1 6.5 - 12.5 fL [facility] Blood 11/13/2023 5:18 AM CDT 11/13/2023 5:47 AM CDT Zac Churchill MD LABORATORY Performing Organization Address City/[facility]/ZIP Co de Phone Number [facility] [address] [address] * RPR SYPHILIS SCREEN (11/12/2023 11:10 PM CDT) RPR Screen Non-Reactive Non-Reacti ve [facility] RPR Titer Not Reflexed [facility] Blood 11/12/2023 11:1 0 PM CDT 11/12/2023 11:40 PM CDT Zac Churchill MD LABORATORY Performing Organization Address [facility] Co de Phone Number [facility] [place] [address] * (ABNORMAL) POC GLUCOSE (11/12/2023 8:47 PM CDT) POC Glucose 196(H) 70 - 100 mg/dL [facility] Blood 11/12/2023 8:47 PM CDT Jessica Grullon MD LABORATORY Performing Organization Address [facility] de Phone Number [facility] [place] [address], * (ABNORMAL) POC GLUCOSE (11/12/2023 4:41 PM CDT) Pathologist [facility] POC Glucose 172(H) 70 - 100 mg/dL [facility] Blood 11/12/2023 4:41 PM CDT Jessica Grullon MD LABORATORY Performing Organization Address [facility] de Phone Number [facility] [address] * VANCOMYCIN LEVEL (11/12/2023 1:22 PM CDT) Vancomycin 47.5 mcg/mL [facility] Comment:Expected Range (Trou gh): 10-20 mcg/ml Blood 11/12/2023 1:22 PM CDT 11/12/2023 1:34 PM CDT Narrative [facility] - 11/12/2023 2:28 PM CDT Peak or trough:->Trough Zac Churchill MD LABORATORY Performing Organization Address [facility] de Phone Number [facility] [address] [address] * (ABNORMAL) CYSTATIN C (11/12/2023 11:36 AM CDT) Cystatin C 2.20(H) 0.61 - 0.95 mg/L [facility] eGFR by Cystatin C 29(L) >=60 ml/min/1.7 3m2 [facility] Comment: Estimated GFR calculated using the CKD-EPI Cystatin C (2012) equation. Stage ? Description ?eGFR Range ??1.......Normal or increased eGFR.......90 or Greater ??2.......Mildly decreased eGFR..........60-89 ??3.......Moderately decreased eGFR......30-59 ??4.......Severely decreased eGFR........15-29 ??5.......Kidney Failure.................Less than 15 Blood 11/12/2023 11:3 6 AM CDT 11/12/2023 2:53 PM CDT Zac Churchill MD LABORATORY Performing Organization Address City/[facility] Co de Phone Number [facility] [address] [address] * (ABNORMAL) PHOSPHORUS (11/12/2023 11:36 AM CDT) Phosphorus 5.8(H) 2.5 - 4.5 mg/dL [facility] Blood 11/12/2023 11:3 6 AM CDT 11/12/2023 11:49 AM CDT Zac Churchill MD LABORATORY Performing Organization Address City/[facility]/ZIP Co de Phone Number [facility] [address] [address] * (ABNORMAL) PANEL BASIC METABOLIC (BMP) (11/12/2023 11:36 AM CDT) Sodium 137 135 - 148 mmol/L [facility] Potassium 4.9 3.5 - 5.3 mmol/L [facility] Chloride 104 92 - 108 mmol/L [facility] CO2 23 22 - 30 mmol/L [facility] AnGap 10 8 - 16 mmol/L [facility] Glucose 160(H) 70 - 100 mg/dL [facility] BUN 29(H) 6 - 20 mg/dL [facility] Creatinine 2.24(H) 0.70 - 1.25 mg/dL [facility] Calcium 7.8(L) 8.6 - 10.0 mg/dL [facility] eGFR (2020 CKD-EPI) 36(L) >=60 ml/min/1.7 3m2 [facility] Comment: The estimated [...] Zac Churchill MD LABORATORY Performing Organization Address City/[facility] Co de Phone Number [facility] [address] [address] * MAGNESIUM (11/12/2023 11:36 AM CDT) Magnesium 2.3 1.6 - 2.6 mg/dL [facility] Blood 11/12/2023 11:3 6 AM CDT 11/12/2023 11:49 AM CDT Zac Churchill MD LABORATORY Performing Organization Address [facility] Co de Phone Number [facility] [address] [address] * (ABNORMAL) CBC WITH PLATELET (11/12/2023 11:36 AM CDT) Pathologist [facility] WBC 17.87(H) 4.00 - 10.00 k/cmm [facility] RBC 3.40(L) 4.60 - 6.00 m/cmm [facility] Hgb 9.6(L) 13.1 - 17.5 g/dL [facility] Hematocrit 31.1(L) 40.0 - 51.0 % [facility] MCV 91.5 80.0 - 100.0 fL [facility] MCH 28.2 25.0 - 32.0 pg [facility] MCHC 30.9(L) 31.0 - 36.0 g/dL [facility] RDW 13.6 11.5 - 14.5 % [facility] Plt 287 150 - 400 k/cmm [facility] MPV 10.5 6.5 - 12.5 fL [facility] Blood 11/12/2023 11:3 6 AM CDT 11/12/2023 11:48 AM CDT Zac Churchill MD LABORATORY [facility] [place] [address] * (ABNORMAL) POC GLUCOSE (11/12/2023 11:05 AM CDT) [facility] POC Glucose 147(H) 70 - 100 mg/dL [facility] Blood 11/12/2023 11:0 5 AM CDT Jessica Grullon MD LABORATORY [facility] [address] [place] [address] * (ABNORMAL) POC GLUCOSE (11/12/2023 10:09 AM CDT) Pathologist [facility] POC Glucose 163(H) 70 - 100 mg/dL [facility] Blood 11/12/2023 10:0 9 AM CDT Jessica Grullon MD LABORATORY [facility] [address] [place] [address], [place] * (ABNORMAL) POC GLUCOSE (11/12/2023 9:04 AM CDT) POC Glucose 146(H) 70 - 100 mg/dL [facility] Blood 11/12/2023 9:04 AM CDT Jessica Grullon MD LABORATORY Performing Organization Address City/[facility]/ZIP Co de Phone Number [facility] [address] [place] [address], [place] * (ABNORMAL) POC GLUCOSE (11/12/2023 8:01 AM CDT) POC Glucose 152(H) 70 - 100 mg/dL [facility] Blood 11/12/2023 8:01 AM CDT Jessica Grullon MD LABORATORY Performing Organization Address City/[facility] Co de Phone Number [facility] [address] [place] [address], [place] * (ABNORMAL) POC GLUCOSE (11/12/2023 7:00 AM CDT) POC Glucose 147(H) 70 - 100 mg/dL [facility] Blood 11/12/2023 7:00 AM CDT Jessica Grullon MD LABORATORY Performing Organization Address City/[facility]/ZIP Co de Phone Number [facility] [address] [place] [address], [place] * (ABNORMAL) POC GLUCOSE (11/12/2023 6:02 AM CDT) POC Glucose 169(H) 70 - 100 mg/dL [facility] Blood 11/12/2023 6:02 AM CDT Jessica Grullon MD LABORATORY [facility] [address] [place] [address], [place] * (ABNORMAL) POC GLUCOSE (11/12/2023 5:00 AM CDT) POC Glucose 166(H) 70 - 100 mg/dL [facility] Blood 11/12/2023 5:00 AM CDT Jessica Grullon MD LABORATORY Performing Organization Address City/[facility]/ZIP Co de Phone Number [facility] [address] [place] [address], [place] * (ABNORMAL) POC GLUCOSE (11/12/2023 4:02 AM CDT) POC Glucose 178(H) 70 - 100 mg/dL [facility] Blood 11/12/2023 4:02 AM CDT Jessica Grullon MD LABORATORY Performing Organization Address City/[facility] Co de Phone Number [facility] [address] [place] [address], [place] * (ABNORMAL) POC GLUCOSE (11/12/2023 3:17 AM CDT) POC Glucose 176(H) 70 - 100 mg/dL [facility] Blood 11/12/2023 3:17 AM CDT Jessica Grullon MD LABORATORY [facility] [address] [place] [address], [place] * (ABNORMAL) POC GLUCOSE (11/12/2023 2:14 AM CDT) POC Glucose 197(H) 70 - 100 mg/dL [facility] Blood 11/12/2023 2:14 AM CDT Jessica Grullon MD LABORATORY [facility] [address] [place] [address], [place] * (ABNORMAL) POC GLUCOSE (11/12/2023 1:02 AM CDT) POC Glucose 195(H) 70 - 100 mg/dL [facility] Blood 11/12/2023 1:02 AM CDT Jessica Grullon MD LABORATORY Performing Organization Address City/[facility] Co de Phone Number [facility] [address] [id number], [place] * (ABNORMAL) POC GLUCOSE (11/12/2023 12:01 AM CDT) POC Glucose 180(H) 70 - 100 mg/dL [facility] POINT OF CARE Blood 11/12/2023 12:0 1 AM CDT Jessica Grullon MD LABORATORY Performing Organization Address City/[facility]/ZIP Co de Phone Number [facility] POINT OF CARE [address] [place] [address], [place] * (ABNORMAL) POC GLUCOSE (11/11/2023 11:01 PM CDT) POC Glucose 185(H) 70 - 100 mg/dL [facility] POINT OF CARE Blood 11/11/2023 11:0 1 PM CDT Jessica Grullon MD LABORATORY [facility] POINT OF CARE [address] [place] [address], [place] * (ABNORMAL) POC GLUCOSE (11/11/2023 10:00 PM CDT) POC Glucose 167(H) 70 - 100 mg/dL [facility] POINT OF CARE Blood 11/11/2023 10:0 0 PM CDT Jessica Grullon MD LABORATORY Performing Organization Address City/[facility] Co de Phone Number [facility] [address] [place] [id number], [place] * (ABNORMAL) POC GLUCOSE (11/11/2023 9:01 PM CDT) POC Glucose 148(H) 70 - 100 mg/dL [facility] Blood 11/11/2023 9:01 PM CDT Jessica Grullon MD LABORATORY Performing Organization Address City/[facility] Co de Phone Number [facility] [address] [place] [address], [place] * (ABNORMAL) POC GLUCOSE (11/11/2023 8:02 PM CDT) POC Glucose 167(H) 70 - 100 mg/dL [facility] Blood 11/11/2023 8:02 PM CDT Jessica Grullon MD LABORATORY Performing Organization Address City/[facility]/ZIP Co de Phone Number [facility] [address] [place] [address], [place] * (ABNORMAL) POC GLUCOSE (11/11/2023 7:02 PM CDT) POC Glucose 180(H) 70 - 100 mg/dL [facility] Blood 11/11/2023 7:02 PM CDT Jessica Grullon MD LABORATORY Performing Organization Address City/[facility]/ZIP Co de Phone Number [facility] POINT OF CARE [address] [place] [phone], * (ABNORMAL) PANEL BASIC METABOLIC (BMP) (11/11/2023 6:42 PM CDT) Sodium 138 135 - 148 mmol/L [facility] Potassium 4.3 3.5 - 5.3 mmol/L [facility] Chloride 103 92 - 108 mmol/L [facility] CO2 25 22 - 30 mmol/L [facility] AnGap 10 8 - 16 mmol/L [facility] Glucose 181(H) 70 - 100 mg/dL [facility] BUN 21(H) 6 - 20 mg/dL [facility] Creatinine 1.03 0.70 - 1.25 mg/dL [facility] Calcium 8.0(L) 8.6 - 10.0 mg/dL [facility] eGFR (2020 CKD-EPI) 91 >=60 ml/min/1.7 3m2 [facility] Comment: The estimated [...] Zac Churchill MD LABORATORY Performing Organization Address [facility]/ZIP Co de Phone Number [facility] [address] [address] * (ABNORMAL) POC GLUCOSE (11/11/2023 6:05 PM CDT) POC Glucose 173(H) 70 - 100 mg/dL [facility] Blood 11/11/2023 6:05 PM CDT Jessica Grullon MD LABORATORY Performing Organization Address City/[facility]/ZIP Co de Phone Number [facility] [address] [place] [address], * (ABNORMAL) POC GLUCOSE (11/11/2023 5:01 PM CDT) POC Glucose 163(H) 70 - 100 mg/dL [facility] Blood 11/11/2023 5:01 PM CDT Jessica Grullon MD LABORATORY [facility] [address] [place], [place] [address], [place] * (ABNORMAL) POC GLUCOSE (11/11/2023 3:47 PM CDT) POC Glucose 138(H) 70 - 100 mg/dL [facility] Blood 11/11/2023 3:47 PM CDT Jessica Grullon MD LABORATORY Performing Organization Address City/[facility] Co de Phone Number [facility] [address] [place] [address], [place] * (ABNORMAL) POC GLUCOSE (11/11/2023 3:00 PM CDT) POC Glucose 147(H) 70 - 100 mg/dL [facility] Blood 11/11/2023 3:00 PM CDT Jessica Grullon MD LABORATORY Performing Organization Address City/[facility]/ZIP Co de Phone Number [facility] [address] [place] [address], [place] * (ABNORMAL) POC GLUCOSE (11/11/2023 2:12 PM CDT) POC Glucose 147(H) 70 - 100 mg/dL [facility] Blood 11/11/2023 2:12 PM CDT Jessica Grullon MD LABORATORY Performing Organization Address City/[facility]/ZIP Co de Phone Number [facility] [address] [place] [address], [place] * (ABNORMAL) POC GLUCOSE (11/11/2023 1:02 PM CDT) POC Glucose 126(H) 70 - 100 mg/dL [facility] Blood 11/11/2023 1:02 PM CDT Jessica Grullon MD LABORATORY Performing Organization Address City/[facility]/ZIP Co de Phone Number [facility] [address] [place] [address], [place] * (ABNORMAL) POC GLUCOSE (11/11/2023 12:01 PM CDT) POC Glucose 141(H) 70 - 100 mg/dL [facility] Blood 11/11/2023 12:0 1 PM CDT Jessica Grullon MD LABORATORY Performing Organization Address City/[facility] Co de Phone Number [facility] [address] [place] [address], [place] * (ABNORMAL) POC GLUCOSE (11/11/2023 11:03 AM CDT) POC Glucose 163(H) 70 - 100 mg/dL [facility] Blood 11/11/2023 11:0 3 AM CDT Jessica Grullon MD LABORATORY Performing Organization Address City/[facility] Co de Phone Number [facility] [address] [place] [address], [place] * (ABNORMAL) POC GLUCOSE (11/11/2023 9:59 AM CDT) POC Glucose 170(H) 70 - 100 mg/dL [facility] Blood 11/11/2023 9:59 AM CDT Jessica Grullon MD LABORATORY Performing Organization Address City/[facility]/ZIP Co de Phone Number [facility] [address] [place] [address], [place] * (ABNORMAL) POC GLUCOSE (11/11/2023 8:56 AM CDT) POC Glucose 166(H) 70 - 100 mg/dL [facility] Blood 11/11/2023 8:56 AM CDT Jessica Grullon MD LABORATORY Performing Organization Address [facility] Co de Phone Number [facility] [address] [place] [address], [place] * (ABNORMAL) POC GLUCOSE (11/11/2023 8:01 AM CDT) POC Glucose 172(H) 70 - 100 mg/dL [facility] Blood 11/11/2023 8:01 AM CDT Jessica Grullon MD LABORATORY Performing Organization Address [facility] Co de Phone Number [facility] [address] [place] [address], [place] * ICU PHOSPHORUS (11/11/2023 5:36 AM CDT) Phosphorus 2.9 2.5 - 4.5 mg/dL [facility] Blood 11/11/2023 5:36 AM CDT 11/11/2023 5:45 AM CDT Zac Churchill MD LABORATORY Performing Organization Address City/[facility]/ZIP Co de Phone Number [facility] [address] [place] [address] * (ABNORMAL) ICU MAGNESIUM (11/11/2023 5:36 AM CDT) Magnesium 1.2(L) 1.6 - 2.6 mg/dL [facility] Blood 11/11/2023 5:36 AM CDT 11/11/2023 5:45 AM CDT Zac Churchill MD LABORATORY Performing Organization Address City/[facility]/ZIP Co de Phone Number [facility] [address] [address] * (ABNORMAL) ICU CBC WITH PLTS/AUTO DIFF (11/11/2023 5:36 AM CDT) WBC 17.41(H) 4.00 - 10.00 k/cmm [facility] RBC 2.72(L) 4.60 - 6.00 m/cmm [facility] Hgb 7.8(L) 13.1 - 17.5 g/dL [facility] Hematocrit 24.1(L) 40.0 - 51.0 % [facility] MCV 88.6 80.0 - 100.0 fL [facility] MCH 28.7 25.0 - 32.0 pg [facility] MCHC 32.4 31.0 - 36.0 g/dL [facility] RDW 13.2 11.5 - 14.5 % [facility] Plt 203 150 - 400 k/cmm [facility] MPV 10.1 6.5 - 12.5 fL [facility] Automated Abs Neutrophil 13.29(H) 1.70 - 6.50 k/cmm [facility] Comment:Preliminary ANC, Fin al Result to Follow Cooks Cell Slight [facility] Toxic Gran Present [facility] Toxic Vac Present [facility] Abs Neutrophil 13.41(H) 1.70 - 6.50 k/cmm [facility] Abs Lymphocyte 2.96 0.80 - 4.00 k/cmm [facility] Abs Monocyte 0.87 0.20 - 1.00 k/cmm [facility] Abs Basophil 0.17 0.00 - 0.20 k/cmm [facility] Blood 11/11/2023 5:36 AM CDT 11/11/2023 5:45 AM CDT Zac Churchill MD LABORATORY Performing Organization Address City/[facility]/ZIP Co de Phone Number [facility] [address] [address] * (ABNORMAL) ICU PANEL BASIC METABOLIC (BMP) (11/11/2023 5:36 AM CDT) AnGap 9 8 - 16 mmol/L [facility] BUN 15 6 - 20 mg/dL [facility] Calcium 6.0(AA) 8.6 - 10.0 mg/dL [facility] Comment:Critical Result Low Chloride 108 92 - 108 mmol/L [facility] CO2 22 22 - 30 mmol/L [facility] Glucose 135(H) 70 - 100 mg/dL [facility] Creatinine 0.93 0.70 - 1.25 mg/dL [facility] Potassium 3.2(L) 3.5 - 5.3 mmol/L [facility] eGFR (2020 CKD-EPI) 103 >=60 ml/min/1.7 3m2 [facility] Comment: The estimated glomerular filtration rate (eGFR) was calculated using the CKD-EPI 2020 creatinine equation, which does not include race as a factor. This equation is validated in individuals 18 years of age and older, and eGFR is normalized to a body surface area of 1.73m^2. Sodium 139 135 - 148 mmol/L [facility] Blood 11/11/2023 5:36 AM CDT 11/11/2023 5:45 AM CDT Narrative [facility] - 11/11/2023 6:25 AM CDT Critical value for Calcium called to and read back by Sheila Dias RN in STN4 at 11/11/2023 06:24:12 CDT by Larry Fuchs MLS. Zac Churchill MD LABORATORY [facility] [address] [address] * (ABNORMAL) POC GLUCOSE (11/11/2023 5:28 AM CDT) POC Glucose 149(H) 70 - 100 mg/dL [facility] Blood 11/11/2023 5:28 AM CDT Jessica Grullon MD LABORATORY [facility] [address] [place] [address], [place] * (ABNORMAL) POC GLUCOSE (11/11/2023 4:29 AM CDT) POC Glucose 159(H) 70 - 100 mg/dL [facility] Blood 11/11/2023 4:29 AM CDT Jessica Grullon MD LABORATORY Performing Organization Address City/[facility]/ZIP Co de Phone Number [facility] [address] [place] [address], [place] * (ABNORMAL) POC GLUCOSE (11/11/2023 3:28 AM CDT) POC Glucose 153(H) 70 - 100 mg/dL [facility] Blood 11/11/2023 3:28 AM CDT Jessica Grullon MD LABORATORY Performing Organization Address City/[facility]/ZIP Co de Phone Number [facility] [address] [place] [address], [place] * (ABNORMAL) POC GLUCOSE (11/11/2023 2:18 AM CDT) POC Glucose 172(H) 70 - 100 mg/dL [facility] Blood 11/11/2023 2:18 AM CDT Jessica Grullon MD LABORATORY [facility] [address] [place] [address], [place] * (ABNORMAL) POC GLUCOSE (11/11/2023 1:03 AM CDT) POC Glucose 171(H) 70 - 100 mg/dL [facility] Blood 11/11/2023 1:03 AM CDT Jessica Grullon MD LABORATORY Performing Organization Address City/[facility] Co de Phone Number [facility] [address] [place] [address], * (ABNORMAL) POC GLUCOSE (11/10/2023 11:50 PM CDT) POC Glucose 201(H) 70 - 100 mg/dL [facility] Blood 11/10/2023 11:5 0 PM CDT Jessica Grullon MD LABORATORY Performing Organization Address [facility] Co de Phone Number [address] [address], [place] * (ABNORMAL) POC GLUCOSE (11/10/2023 10:39 PM CDT) POC Glucose 192(H) 70 - 100 mg/dL [facility] Blood 11/10/2023 10:3 9 PM CDT Jessica Grullon MD LABORATORY Performing Organization Address [facility] Co de Phone Number [address] [address], [place] * (ABNORMAL) TROP 6H (11/10/2023 10:15 PM CDT) 6H Trop 35 <=35 ng/L [facility] 6H Delta Significan t(A) Not Significant [facility] Blood 11/10/2023 10:1 5 PM CDT 11/10/2023 10:31 PM CDT Jessica Grullon MD LABORATORY Performing Organization Address City/[facility]/ZIP Co de Phone Number [facility] [address] [place] [address] * (ABNORMAL) POC GLUCOSE (11/10/2023 9:36 PM CDT) POC Glucose 200(H) 70 - 100 mg/dL [facility] Blood 11/10/2023 9:36 PM CDT Jessica Grullon MD LABORATORY Performing Organization Address City/[facility] Co de Phone Number [facility] [address] [place] [address], [place] * (ABNORMAL) POC GLUCOSE (11/10/2023 8:17 PM CDT) POC Glucose 221(H) 70 - 100 mg/dL [facility] Blood 11/10/2023 8:17 PM CDT Jessica Grullon MD LABORATORY Performing Organization Address [facility] Co de Phone Number [place] [phone], [place] * (ABNORMAL) POC GLUCOSE (11/10/2023 7:07 PM CDT) POC Glucose 227(H) 70 - 100 mg/dL [facility] Blood 11/10/2023 7:07 PM CDT Jessica Grullon MD LABORATORY Performing Organization Address [facility] Co de Phone Number [address] [address], [place] * (ABNORMAL) TROP 2H (11/10/2023 6:34 PM CDT) 2H Trop 21 <=35 ng/L [facility] 2H Delta Significan t(A) Not Significant [facility] Blood 11/10/2023 6:34 PM CDT 11/10/2023 6:37 PM CDT Narrative Authorizing Provider Result Kiki Grullon MD LABORATORY Performing Organization Address City/[facility]/ZIP Co de Phone Number [facility] [address] [place], [place] [address] * (ABNORMAL) LACTATE (LACTIC ACID) (11/10/2023 6:34 PM CDT) Lactate 14.6(H) 0.7 - 2.1 mmol/L [facility] Blood 11/10/2023 6:34 PM CDT 11/10/2023 6:37 PM CDT Narrative [facility] - 11/10/2023 6:41 PM CDT Send specimen on ice! Jessica Grullon MD LABORATORY [facility] [address] [place] [address] * (ABNORMAL) POC GLUCOSE (11/10/2023 6:07 PM CDT) POC Glucose 201(H) 70 - 100 mg/dL [facility] Blood 11/10/2023 6:07 PM CDT Jessica Grullon MD LABORATORY Performing Organization Address City/[facility]/ZIP Co de Phone Number [facility] [address] [place] [address], * (ABNORMAL) POC GLUCOSE (11/10/2023 5:30 PM CDT) POC Glucose 197(H) 70 - 100 mg/dL [facility] Blood 11/10/2023 5:30 PM CDT Jessica Grullon MD LABORATORY Performing Organization Address City/[facility]/ZIP Co de Phone Number [facility] [address] [place] [address], * M TUBERCULOSIS AMPLIFICATION (11/10/2023 5:13 PM CDT) Final Report M. tuberculosis complex DNA not detected. [facility] Tissue STRUCTURE OF PERINEAL BODY / Unknown 11/10/2023 5:13 PM CDT 11/11/2023 10:50 AM CDT Comment:2:Perineal tissue Narrative [facility] - 11/11/2023 3:22 PM CDT This assay uses PCR nucleic acid amplification to detect Mycobacterium tuberculosis complex DNA. ??This test was developed and its performance characteristics determined by [facility]. ??It has not been cleared or approved by the U.S. Food and Drug Administration. ??FDA does not require this test to go through premarket FDA review. ??This test is used for clinical purposes. ??It should not be regarded as investigational or for research. ??[facility] is certified under the Clinical Laboratory Improvement Amendments of 1988 (CLIA) as qualified to perform high complexity clinical laboratory testing. Zac Churchill MD LAB MICROBIOLOGY Performing Organization Address [facility] Co de Phone Number [address] [address] * (ABNORMAL) TISSUE CULTURE:INCLUDES GRAM STAIN (11/10/2023 5:13 PM CDT) Final Report Positive Culture Rare Actinomyces species isolated. Most closely resembles Actinomyces hominis. Rare Staphylococcus pettenkoferi isolated. A member of the coagulase-negative Staphylococci. Staphylococcus epidermidis isolated in broth only. No further work-up. Plates held one week. (POS) [facility] Organism ACTINOMYCES SPECIES(POS) [facility] Organism STAPHYLOCOCCUS PETTENKOFERI(POS) [facility] Organism STAPHYLOCOCCUS EPIDERMIDIS(POS) [facility] Gram Stain Report Positive Gram stain Gram stain electronically reported to and acknowledged by: Fermin Osborn MD for Burn on 11/10/2023 18:43:03 by Silver Luna MLS Rare WBC's seen. Many gram positive cocci in clusters. (POS) [facility] Tissue STRUCTURE OF PERINEAL BODY / Unknown 11/10/2023 5:13 PM CDT Zac Churchill MD LAB MICROBIOLOGY Performing Organization Address [facility] Co de Phone Number [address] [address] * FUNGUS CULTURE:INCLUDES SUHAS (11/10/2023 5:13 PM CDT) Final Report No fungus isolated. [facility] SUHAS Prep No fungal elements seen. [facility] Tissue STRUCTURE OF PERINEAL BODY / Unknown 11/10/2023 5:13 PM CDT Zac Churchill MD LAB MICROBIOLOGY Performing Organization Address [facility] de Phone Number [facility] [address] [address] * (ABNORMAL) ANAEROBE CULTURE (11/10/2023 5:13 PM CDT) Final Report Positive Culture Many mixed anaerobes present. (POS) [facility] Tissue STRUCTURE OF PERINEAL BODY / Unknown 11/10/2023 5:13 PM CDT Zac Churchill MD LAB MICROBIOLOGY Performing Organization Address [facility] de Phone Number [facility] [address] [address] * AFB CULTURE:INCLUDES AFB SMEAR (11/10/2023 5:13 PM CDT) Final Report No acid fast bacilli isolated. [facility] Acid Fast Stain No acid fast bacilli seen. [facility] Tissue STRUCTURE OF PERINEAL BODY / Unknown 11/10/2023 5:13 PM CDT Zac Churchill MD LAB MICROBIOLOGY Performing Organization Address [facility] de Phone Number [facility] [address] [address] * (ABNORMAL) WOUND CULTURE:GRAM STAIN OPTIONAL (11/10/2023 5:12 PM CDT) Final Report Rare Actinomyces species isolated. Most closely resembles Actinomyces hominis. One colony Staphylococcus epidermidis isolated. (POS) [facility] Organism ACTINOMYCES SPECIES(POS) [facility] Organism STAPHYLOCOCCUS EPIDERMIDIS(POS) [facility] Gram Stain Report Many WBC's seen. Many gram positive cocci in clusters. [facility] Swab STRUCTURE OF PERINEAL BODY / Unknown 11/10/2023 5:12 PM CDT Narrative [facility] - 11/12/2023 3:34 PM CDT Do you want a gram stain: No Zac Churchill MD LAB MICROBIOLOGY Performing Organization Address [facility] Co de Phone Number [facility] [address] [address] * FUNGUS CULTURE:INCLUDES SUHAS (11/10/2023 5:12 PM CDT) Final Report No fungus isolated. [facility] SUHAS Prep No fungal elements seen. [facility] Swab STRUCTURE OF PERINEAL BODY / Unknown 11/10/2023 5:12 PM CDT Zac Churchill MD LAB MICROBIOLOGY Performing Organization Address [facility] de Phone Number [facility] [address] [address] * ANAEROBE CULTURE (11/10/2023 5:12 PM CDT) Final Report Moderate mixed anaerobes present. [facility] Swab STRUCTURE OF PERINEAL BODY / Unknown 11/10/2023 5:12 PM CDT Zac Churchill MD LAB MICROBIOLOGY Performing Organization Address [facility] Co de Phone Number [facility] [address] [address] * (ABNORMAL) POC GLUCOSE (11/10/2023 4:28 PM CDT) POC Glucose 236(H) 70 - 100 mg/dL [facility] Blood 11/10/2023 4:28 PM CDT Jessica Grullon MD LABORATORY Performing Organization Address [facility] Co de Phone Number [facility] [address] [place] [address], [place] * ED EKG (12-LEAD) (11/10/2023 3:21 PM CDT) 11/10/2023 3:21 PM CDT Impressions [facility] EKG ORDERS - 11/10/2023 3:21 PM CDT SINUS TACHYCARDIA MINIMAL ST DEPRESSION ??[0.025+ mV ST DEPRESSION] ABNORMAL QRS-T ANGLE ??[QRS-T AXIS DIFFERENCE > 60] NONSPECIFIC ST AND T WAVE ABNORMALITY. ABNORMAL ECG P-R Interval 138 ms QRS Interval 90 ms QT Interval 348 ms QTC Interval 405 ms P [place] 35 QRS [place]an 1 T Wave [place] 148 Narrative Procedure Note Jessica Grullon MD - 11/10/2023 IMPRESSION SINUS TACHYCARDIA MINIMAL ST DEPRESSION [0.025+ mV ST DEPRESSION] ABNORMAL QRS-T ANGLE [QRS-T AXIS DIFFERENCE > 60] NONSPECIFIC ST AND T WAVE ABNORMALITY. 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 ??No initial report accompanied the patient and/or Dr. ??JESSICA GRULLON requested an interpretation by me. Technique: ??CT scan of the left lower extremity done on 11/10/2023 with IV contrast. 2 mm axial, sagittal and coronal reconstructions reviewed in soft tissue and bone windows, per the local institution's scanning protocols, which may differ from the [facility] trauma protocols. Findings: ??Subcutaneous emphysema [...] MBBS - 11/10/2023 Indication: Patient transferred from [facility] due toFournier's gangrene. No initial report accompanied the patient and/or Dr.JESSICA GRULLON requested an interpretation by me. Technique: CT scan of the left lower extremity done on 11/10/2023 with IVcontrast. 2 mm axial, sagittal and coronal reconstructions reviewed insoft tissue and bone windows, per the local institution's scanningprotocols, which may differ from the [facility] trauma protocols. Findings: Subcutaneous emphysema [...] by the resident/fellow. 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 ??No initial report accompanied the patient and/or Dr. ??JESSICA GRULLON requested an interpretation by me. Technique: ??CT scan of the abdomen/pelvis done on 11/10/2023 ??with IV contrast. ??3 mm axial, sagittal and coronal reconstructions reviewed in soft tissue and bone windows, per the local institution's scanning protocols, which may differ from the [facility] trauma protocols. Comparison: Same day [...] MBBS - 11/10/2023 Indication: Patient transferred from [facility] due toFournier's gangrene. No initial report accompanied the patient and/or Dr.ROCHELLE GRULLON requested an interpretation by me. Technique: CT scan of the abdomen/pelvis done on 11/10/2023 with IVcontrast. 3 mm axial, sagittal and coronal reconstructions reviewed insoft tissue and bone windows, per the local institution's scanningprotocols, which may differ from the [facility] trauma protocols. Comparison: Same day [...] (11/10/2023 2:40 PM CDT) Color YELLOW YELLOW [facility] Appearance CLEAR CLEAR [facility] Urine Glucose >=1000(A) NEGATIVE mg/dL [facility] Bili UA NEGATIVE NEGATIVE [facility] Ketones TRACE(A) NEGATIVE [facility] Blood Ur LARGE(A) Neg-Trace [facility] PH Urine 6.5 5.0 - 7.0 [facility] Protein Ur >=600(A) Neg-Trace [facility] Urobilinogen NORMAL NORMAL EU/dL [facility] Nitrite Ur NEGATIVE NEGATIVE [facility] Leuk Est NEGATIVE Neg-Trace [facility] WBC Ur 0-5 0 - 5 perHPF [facility] RBC Ur 11-20(A) 0 - 3 perHPF [facility] SQ EPITH 0-5 0 - 5 perHPF [facility] Mucus 1+ perLPF [facility] Bacteria UA PRESENT [facility] Comment:Presence of bacteria does not necessarily indicate a UTI. The presence of bacteria can indicate a non-clean catch urine specimen. Bacteria should be used in conjunction with other UA results and clinical presentation to assist in diagnosing an infection. Urinalysis Performed at: [facility] Specific [place] 1.020 1.003 - 1.030 [facility] Urine 11/10/2023 2:40 PM CDT 11/10/2023 2:47 PM CDT Jessica Grullon MD LABORATORY [facility] [address] [id number] * BLOOD AEROBIC/ANAEROBIC CULTURE (11/10/2023 2:39 PM CDT) Final Report No growth after 5 days. [facility] Blood (Peripheral) 11/10/2023 2:39 PM CDT 11/10/2023 4:09 PM CDT Jessica Grullon MD LAB MICROBIOLOGY Performing Organization Address [facility] de Phone Number [facility] [address] [address] * BLOOD AEROBIC/ANAEROBIC CULTURE (11/10/2023 2:37 PM CDT) Final Report No growth after 5 days. [facility] Blood (Peripheral) 11/10/2023 2:37 PM CDT 11/10/2023 4:09 PM CDT Jessica Grullon MD LAB MICROBIOLOGY Performing Organization Address [facility] de Phone Number [facility] [address] [address] * (ABNORMAL) SED RATE (ESR) (11/10/2023 2:31 PM CDT) Sed Rate 120(H) 2 - 10 mm/hr [facility] Blood 11/10/2023 2:31 PM CDT 11/10/2023 2:57 PM CDT Jessica Grullon MD LABORATORY Performing Organization Address [facility] de Phone Number [facility] [address] [address] * EXTRA TUBE - SST (11/10/2023 2:31 PM CDT) SST TUBE Stored [facility] Comment:SST tubes (Serum Sep arator) are stored in the lab for 3 days from the collection date. Blood 11/10/2023 2:31 PM CDT 11/10/2023 2:43 PM CDT Jessica Grullon MD LABORATORY Performing Organization Address City/[facility] Co de Phone Number [facility] [address] [address] * (ABNORMAL) HS TROPONIN (11/10/2023 2:31 PM CDT) HS Troponin I 49(H) <=35 ng/L [facility] Blood 11/10/2023 2:31 PM CDT 11/10/2023 2:57 PM CDT Narrative [facility] - 11/10/2023 3:25 PM CDT First Occurrence of the Troponin order is to be drawn Stat by Nursing staff on the unit. Jessica Grullon MD LABORATORY Performing Organization Address [facility] Co de Phone Number [address] [address] * ETHANOL (ETOH) LEVEL, BLOOD (11/10/2023 2:31 PM CDT) Ethanol Negative Negative g/dL [facility] Blood 11/10/2023 2:31 PM CDT 11/10/2023 2:57 PM CDT Jessica Grullon MD LABORATORY Performing Organization Address [facility] Co de Phone Number [address] [address] * PTT (APTT) (11/10/2023 2:31 PM CDT) APTT 32.9 25.0 - 37.0 sec [facility] Blood 11/10/2023 2:31 PM CDT 11/10/2023 2:57 PM CDT Jessica Grullon MD LABORATORY Performing Organization Address City/[facility] Co de Phone Number [address] [address] * ED INR (11/10/2023 2:31 PM CDT) [facility] ED INR 1.1 0.8 - 1.1 [facility] Comment: Warfarin Therapeutic Range: Standard Intensity: 2.0 - 3.0 High Intensity: 2.5 - 3.5 This is a rapid INR screening test which uses whole blood; results may infrequently differ from plasma INR results. If medication adjustments/dosing are required a PT/INR test ([id number]) should be ordered and performed in the main laboratory. Blood 11/10/2023 2:31 PM CDT 11/10/2023 2:41 PM CDT Jessica Grullon MD LABORATORY Performing Organization Address City/[facility]/ZIP Co de Phone Number [facility] [address] [address] * (ABNORMAL) LACTATE (LACTIC ACID) (11/10/2023 2:31 PM CDT) [facility] Lactate 2.3(H) 0.7 - 2.1 mmol/L [facility] Blood 11/10/2023 2:31 PM CDT 11/10/2023 2:45 PM CDT Narrative [facility] - 11/10/2023 2:49 PM CDT Send specimen on ice! Jessica Grullon MD LABORATORY Performing Organization Address City/[facility]/ZIP Co de Phone Number [facility] [address] [address] * (ABNORMAL) FIBRINOGEN (11/10/2023 2:31 PM CDT) [facility] Fibrinogen >1,000(H) 200 - 400 mg/dL [facility] Blood 11/10/2023 2:31 PM CDT 11/10/2023 2:57 PM CDT Jessica Grullon MD LABORATORY Performing Organization Address City/[facility]/ZIP Co de Phone Number [facility] [address] [address] * (ABNORMAL) PANEL HEPATIC FUNCTION (11/10/2023 2:31 PM CDT) Pathologist [facility] Total Protein 7.1 6.4 - 8.3 g/dL [facility] Albumin 2.9(L) 3.8 - 5.1 g/dL [facility] Bili Total 0.3 <=1.2 mg/dL [facility] Bili Direct <0.2 <=0.3 mg/dL [facility] Alk Phos 104 40 - 129 IU/L [facility] Comment:No reference range e stablished for patients <18 years old. ALT (SGPT) 9 <=41 IU/L [facility] AST(SGOT) 14 5 - 40 IU/L [facility] Blood 11/10/2023 2:31 PM CDT 11/10/2023 2:57 PM CDT Jessica Grullon MD LABORATORY Performing Organization Address [facility]/ZIP Co de Phone Number [address] [address] * (ABNORMAL) ED HEMOGLOBIN TOTAL (ED ONLY) (11/10/2023 2:31 PM CDT) [facility] Hgb 12.4(L) 13.1 - 17.5 g/dL [facility] Blood 11/10/2023 2:31 PM CDT 11/10/2023 2:45 PM CDT Jessica Grullon MD LABORATORY [facility] [address] [address] * (ABNORMAL) ED CHEMISTRY LABS(NA,K,CL,CO2,GLU,CREAT,CA-IONIZED,ANION GAP) (11/10/2023 2:31 PM CDT) [facility] Sodium 133(L) 135 - 148 mmol/L [facility] Potassium 3.7 3.5 - 5.3 mmol/L [facility] Chloride 93 92 - 108 mmol/L [facility] AnGap 12 8 - 16 mmol/L [facility] Glucose 304(H) 70 - 100 mg/dL [facility] ICA, Actual 4.14(L) 4.40 - 5.20 mg/dL [facility] ICA, pH Corrected 4.29(L) 4.40 - 5.20 mg/dL [facility] Creatinine 0.98 0.70 - 1.25 mg/dL [facility] BICARB 27(H) 22 - 26 mEq/L [facility] eGFR (2020 CKD-EPI) 97 >=60 ml/min/1.7 3m2 [facility] Comment: The estimated glomerular filtration rate (eGFR) was calculated using the CKD-EPI 2020 creatinine equation, which does not include race as a factor. This equation is validated in individuals 18 years of age and older, and eGFR is normalized to a body surface area of 1.73m^2. Blood 11/10/2023 2:31 PM CDT 11/10/2023 2:45 PM CDT Jessica Grullon MD LABORATORY [facility] [address] [address] * (ABNORMAL) CBC WITH PLTS/AUTO DIFF (11/10/2023 2:31 PM CDT) WBC 21.95(H) 4.00 - 10.00 k/cmm [facility] RBC 4.26(L) 4.60 - 6.00 m/cmm [facility] Hgb 12.0(L) 13.1 - 17.5 g/dL [facility] Hematocrit 36.3(L) 40.0 - 51.0 % [facility] MCV 85.2 80.0 - 100.0 fL [facility] MCH 28.2 25.0 - 32.0 pg [facility] MCHC 33.1 31.0 - 36.0 g/dL [facility] RDW 12.9 11.5 - 14.5 % [facility] Plt 262 150 - 400 k/cmm [facility] MPV 10.1 6.5 - 12.5 fL [facility] Automated Abs Neutrophil 18.29(H) 1.70 - 6.50 k/cmm [facility] Comment:Preliminary ANC, Fin al Result to Follow Abs Immature Granulocyte 0.26(H) 0.00 - 0.09 k/cmm [facility] Comment:The Immature Granulo cyte Absolute count contains metamyelocytes and myelocytes. Abs Neutrophil 18.29(H) 1.70 - 6.50 k/cmm [facility] Abs Lymphocyte 1.53 0.80 - 4.00 k/cmm [facility] Abs Monocyte 1.83(H) 0.20 - 1.00 k/cmm [facility] Abs Eosinophil 0.00 0.00 - 0.60 k/cmm [facility] Abs Basophil 0.04 0.00 - 0.20 k/cmm [facility] Polychromasia Slight [facility] Dohle Body Present [facility] Toxic Vac Present [facility] Blood 11/10/2023 2:31 PM CDT 11/10/2023 2:57 PM CDT Jessica Grullon MD LABORATORY Performing Organization Address City/[facility] Co de Phone Number [address] [address] * (ABNORMAL) BLOOD GASES (11/10/2023 2:31 PM CDT) Pathologist [facility] PH Mayo 7.47(H) 7.32 - 7.42 [facility] PCO2 Mayo 38(L) 41 - 51 mmHG [facility] PO2 Mayo 75(H) 25 - 40 mmHG [facility] Bicarb Mayo 27 24 - 28 mEq/L [facility] O2 Sat Mayo 96 % [facility] Base Exc Mayo 3.7(H) -10.0 - 2.0 mmol/L [facility] Blood Venous 11/10/2023 2:31 PM CDT 11/10/2023 2:45 PM CDT Jessica Grullon MD LABORATORY Performing Organization Address [facility]/ZIP Co de Phone Number [address] [address] * ANTIBODY SCREEN (11/10/2023 2:29 PM CDT) Lilly Screen Negative [facility] Blood 11/10/2023 2:29 PM CDT 11/10/2023 2:49 PM CDT Jessica Grullon MD LAB TRANSFUSION SER VICES Performing Organization Address [facility] Co de Phone Number [facility] [address] [address] * BLOOD TYPING-ABO/RH (11/10/2023 2:29 PM CDT) ABORHG A POS [facility] Blood 11/10/2023 2:29 PM CDT 11/10/2023 2:49 PM CDT Jessica Grullon MD LAB TRANSFUSION SER VICES Performing Organization Address [facility] Co de Phone Number [facility] [address] [address] * PRECAUTIONARY TUBE (11/10/2023 2:29 PM CDT) Prec Tube Precautionary Blood Bank Specimen Received. [facility] Blood 11/10/2023 2:29 PM CDT 11/10/2023 2:49 PM CDT Jessica Grullon MD LAB TRANSFUSION SER VICES Performing Organization Address [facility] Co de Phone Number [address] [address] * ED US CRITICAL CARE (11/10/2023 2:28 PM CDT) Anatomical Region Laterality Modality Ultrasound Narrative 11/10/2023 3:16 PM CDT ED Critical Care Resuscitative Ultrasound ED Cardiac Ultrasound Body Areas Imaged: Heart, Chest Wall/Lungs, and Inferior Vena Cava Indications:Shock/Sepsis Window: Subxiphoid, Parasternal Short Merrillan, Parasternal Long Merrillan, Apical 4-Chamber, and Bilateral Lungs Findings: The [...] and subcutaneous tissue Hyperglycemia Other abnormal glucose 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 documented in this encounter Admitting Diagnoses Diagnosis [...] Until Wed11/25/23 at 1502, Constipation (Use Second) cyclobenzaprine (FLEXERIL) tablet 10 mg 10 mg, [...] 11/22/2023 8:35 PM CDT 20 mg heparin 33204 UNITS/mL injection 7,500 UNITS 7,500 UNITS, Subcutaneous, [...] Given 11/22/2023 8:35 PM CDT 50 mg vashe wound therapy (Vashe) solution INTRA-OP ONCE PRN, Starting on Wed11/11/23 at 1520, Until Wed11/11/23 at 1541 Given 11/11/2023 3:20 PM CDT 475 mL Oth er (comment) documented in this encounter Active and Recently [...] RN) 0751 (Given - Provider: Demetra Brito RN)1429 (Given - Provider: Demetra Brito RN)2015 (Given - Provider: Sheila Dias, SABINE) 0847 (Given - Provider: Kate Harmon, SABINE) amLODIPine (NORVASC) tablet 10 mg 10 mg, Oral, DAILY, First dose (after last modification) on Wed11/17/23 at 2110, Until Discontinued 2028 (Given - Provider: Irene Min RN) 2015 (Given - Provider: Sheila Dias, RN) cyclobenzaprine (FLEXERIL) tablet 10 mg 10 mg, Oral, TID, First dose on Wed11/11/23 at 1200, Until Discontinued 903 (Given - Provider: John Taylor RN)1424 (Given - Provider: Demetra Brito RN)2030 (Given - Provider: Irene Min RN) 0751 [...] modification) on Wed11/13/23 at 2000, Until Discontinued 2028 (Given - Provider: Irene Min RN) 2015 (Given - Provider: Sheila Dias RN) heparin 63039 UNITS/mL injection 7,500 UNITS 7,500 UNITS, Subcutaneous, [...] Dias, SABINE) 0849 (Given - Provider: Kate Harmon, SABINE) [...]
--- OUTSIDE RECORDS SUMMARY | 2024-02-07 08:57 | XMS_ITS | Encounter Summary ---
Author Organization [facility] Address [address] [place] [phone] Phone Care Team Providers Care Rn Chemical Dependency Name Role Phone Unavailable Primary Care Provider Unavailabl e Reason for Visit * Auth/Cert (Routine) Specialty Diagnoses / Procedures Referred By Contmini t Referred To Contact SURGERY Diagnoses 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HHS) Hyperglycemia Zac Jackson MD [address] [place] [address] [address] [place] [address] [address] [place] [phone] [place] [address] Referral ID Status Reason Start Date Expiration Date Visits Re quested Visits Authorized [id number] 1 1 Encounter Details Date Type Department Care Team (Late st Contact Info) Description 11/10/2023 4:31 PM CDT Anesthesia Event OR P4 [address] [place] [address] Dontae Higgins MD [address] [place], [place] [id number] Clint Barger MD [address] [place], [place] [address] Anesthesia Record Procedure Summary Procedure Name Responsible Anesthesiologist Anesthesia Start Time Anesthesia Stop Time Excisional debridement, PERINEAL NEC FASC (Unknown) Dontae Higgins MD 11/10/23 1631 11/10/23 1811 Events Date Time Event Comment 11/10/2023 1619 Pre Start 1619 Anesthetic plan discussed with Anesthesiologist 1619 Pre-op End 1631 An Start 1631 An Start Data 1631 IOPAE The intraoperat dasha pre-anesthetic evaluation was completed with no changes noted from the pre-operative anesthesia evaluation. 1639 An Induction 1643 An Intubation [address] elevations n oted however patient's EKG leads were not placed correctly as the patient has dextrocardia. Once leads were switched to opposite side, ST depressions were noted which were also seen on patient's EKG in ED. PAYTON was placed and no wall motion abnormalities were seen, making ischemia and myocardial infarction highly unlikely. The patient's MAP was increased above 70 with phenylephrine drip. Patient most likely has demand ischemia due to infection. 1700 Quick Note 1751 An Emergence 1759 Extubation 1802 an stop data 1811 An Stop Meds Name Total midazolam (VERSED) 1 mg/mL injection 1 m g fentaNYL (SUBLIMAZE) 100 mcg/ 2 mL injec tion 100 mcg lidocaine 2% injection 100 mg propofol (DIPRIVAN) injection 200 mg rocuronium (ZEMURON) injection 60 mg phenylephrine 100 mcg/mL syringe 750 mcg ondansetron (ZOFRAN) injection 4 mg sugammadex (BRIDION) 200 mg/ 2mL injecti on 400 mg linezolid (ZYVOX) IVPB 600 mg 0 mg insulin REGULAR (HumuLIN R) 1 Units/mL i nfusion 3.63 UNITS calcium chloride injection 400 mg phenylephrine (YAMILETH-SYNEPHRINE) 0.2 mg/mL infusion 0.84 mg lactated ringers infusion 1,400 mL * Agents No agents on file. * Blood No blood administrations on file. Lines, Drains, and Airways Type Details Placement Removal Wound 11/10/23; 1707; Incision; Perineum; I+D site 11/11/23 11/10/23 1707 by Jeannie Wiley RN Peripheral IV 11/10/23; 20 gauge; Right; Antecubital; Placed Prior to arrival by EMS; 11/15/23 (none found upon assessement) 11/10/23 0000 by Monica Sheppard RN 11/15/23 0000 by Georgette Arita RN Peripheral IV 11/10/23; 1435; 20 gauge; Right; Hand; Placed in ED; 11/15/23 (none found upon assessment) 11/10/23 1435 by Monica Sheppard RN 11/15/23 0000 by Georgette Arita RN Endotracheal Tube: 11/10/23; 1647 (crea joshua via procedure documentation); 7.5; 11/10/23; 1759 11/10/23 1647 by Afshan Tam APRN, [facility] 11/10/23 1759 by Afshan Tam APRN, [place]IGH Urinary Catheter 11/10/23; 1748; ICU output for active resuscitation/bleeding (nec fasc-perineum); indwelling double lumen coude tip catheter (no difficulty with placement-pale yellow urine output); 10 mL; Placed in OR; 11/15/23; 1235 11/10/23 1748 by Paula Mancuso RN 11/15/23 1235 by Adolfo Barone RN documented in this encounter Social History Tobacco Use Types Packs/Day Years Used Date Smoking Tobacco: Never Assessed Sex and Gender Information Value Date Recorded Sex Assigned at Not on file Gender Identity Not on file Sexual Orientation Not on file documented as of this encounter OR Notes * Anesthesia Postprocedure Evaluation - Dontae Higgins MD - 11/10/2023 7:10 PM CDT Anesthesia Post Eval Patient: Matt Low Procedure(s) Performed: Excisional debridement, PERINEAL NEC FASC (Unknown) I've examined the patient and determined that he[facility] is [facility] type: General () Patient location: PACU Patient status: Post-procedure vital signs reviewed and stable Level of Consciousness: Awake Post-op pain: Adequate Respiratory: Stable Cardiovascular: Stable PONV status: none Fluid status: Acceptable Betablockade: not indicated Anesthetic Complications: No immediate anesthesia complications ST elevations noted after induction however patient's EKG leads were not placed correctly as the patient has dextrocardia. Once leads were switched to opposite side, ST depressions were noted which were also seen on patient's EKG in ED. PAYTON was placed and no wall motion abnormalities were seen, making ischemia and myocardial infarction highly unlikely. The patient's MAP was increased above 70 with phenylephrine drip. Patient most likely has demand ischemia due to infection. Trop negative in PACU and patient denied chest pain. Last Vitals: Vitals Value Taken Time BP 107/66 11/10/23 1900 Temp 37.7 ??C (99.9 ??F) 11/10/23 1811 Pulse 98 11/10/23 1910 Resp 25 11/10/23 1910 SpO2 97 % 11/10/231909 Vitals shown include unfiled device data. * Anesthesia Procedure Notes - Afshan Tam APRN, CRNA - 11/10/2023 4:46 PM CDTAssociated Order(s): Intubation/Airway AIRWAY/INTUBATION PROCEDURE direct laryngoscopy (Type: Surgical Anesthesia) Process/Method: sedated and paralyzed Indications for procedure: surgery Assessment: vocal cords open and clear Preoxygenation: mask Device Device used: MAC Supporting device: Blade size: 3 The patient was intubated [...] mucosa unchanged and dentition unchanged Performed by: [employer]: Afshan Tam APRN, CRNA Additional Notes Mask with #10 oral airway Events Anesthesia start: 11/10/2023 4:31 PM Intubation time: 11/10/2023 4:43 PM * Anesthesia Preprocedure Evaluation - Dontae Higgins MD - 11/10/2023 3:42 PM CDT Anesthesia Pre-Evaluation Summary Statement: This is a 43 y.o. year old patient scheduled for IRRIGATION AND DEBRIDEMENT, PERINEAL NEC FASC (Unknown). 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 OB Other Physical Exam Anesthesia Plan ASA 3 - emergent general intravenous induction Maintenance: Balanced Post-op Care: routine analgesia Anesthetic plan and risks discussed with patient. Plan discussed with [employer]. Vitals: 11/10/23 1530 BP: 117/75 Pulse: 98 Resp: (!) 27 Temp: SpO2: 97% documented in this encounter Miscellaneous Notes * Anesthesia Handoff Note - Afshan Tam APRN, CRNA - 11/10/2023 6:12 PM CDT Anesthesia Post Handoff Patient: Matt Low Procedure(s) Performed: Excisional debridement, PERINEAL NEC FASC (Unknown) Patient was stable and nail beds/oral mucosa pink at time of handoff. Patient location: PACU Transportation: Patient was placed on high flow oxygen. Anesthesia Type: general Patient did not meet fast track criteria. Report to RN (keke) The nurse's questions were answered. Comments: On face mask O2 at 6L. Vitals stable Last Vitals: Vitals: 11/10/23 1811 BP: 102/63 Pulse: 103 Resp: (!) 29 Temp: SpO2: 96% * Anesthesia Extubation Note - Afshan Tam APRN, CRNA - 11/10/2023 6:11 PM CDT Anesthesia Extubation Note At the time of extubation the patient was breathing spontaneously, follows commands, orally suctioned, awake, vital signs stable and within normal limits, headlift for 5 seconds, strong hand grasps for 5 seconds, 4-4 on TOF with sustained tetany, briskly follows verbal commands and eyes open. Extubation details: Spontaneous respirations, High flow oxygen, Oral airway, Oral ETT removed and Pharyngeal reflexes present documented in this encounter Plan of Treatment Not on file documented as of this encounter Procedures Procedure Name Priority Date/Time Associated Diagnosis Comments INTUBATION Routine 11/10/2023 4:46 PM CDT documented in this encounter Results * Intubation/Airway (11/10/2023 4:46 PM CDT) Narrative Afshan Tam APRN, CRNA - 11/10/2023 4:46 PM CDT Afshan Tam APRN, CRNA ? 11/10/2023 ??4:47 PM [...] mucosa unchanged and dentition unchanged Performed by: [place]: Afshan Tam APRN, CRNA Additional Notes Mask with #10 oral airway Events Anesthesia start: 11/10/2023 4:31 PM Intubation time: 11/10/2023 4:43 PM Dontae Higgins MD PROCEDURES documented in this encounter Visit Diagnoses Not on filedocumented in this encounter Administered Medications Inactive Administered Medications - up to 3 most recent administrations Medication Order MAR Action Action Date Dose Rate Site calcium chloride 10% injection Intravenous, INTRA-OP PRN ONCE MAY REPEAT, Starting on Wed11/10/23 at 1704, Until Wed11/10/23 at 1811 Given 11/10/2023 5:04 PM CDT 400 mg fentaNYL (SUBLIMAZE) 100 mcg/2mL injection Intravenous, INTRA-OP PRN ONCE MAY REPEAT, Starting on Wed11/10/23 at 1638, Until Wed11/10/23 at 1811 Given 11/10/2023 4:38 PM CDT 100 mcg insulin REGULAR (HumuLIN R) 1 Units/mL [...] ringers infusion Intravenous, PERIOP CONTINUOUS, Starting on Wed11/10/23 at 1650, Until Wed11/10/23 at 1811 New Bag 11/10/2023 5:28 PM CDT New Bag 11/10/2023 4:10 PM CDT lidocaine 2% injection Intravenous, INTRA-OP PRN ONCE MAY REPEAT, Starting on Wed11/10/23 at 1639, Until Wed11/10/23 at 1811 Given 11/10/2023 4:39 PM CDT 100 mg midazolam (PF) (VERSED) injection IV Push, INTRA-OP PRN ONCE MAY REPEAT, Starting on Wed11/10/23 at 1700, Until Wed11/10/23 at 1811 Given 11/10/2023 5:00 PM CDT 1 mg ondansetron (ZOFRAN) 4 mg/2 mL injection IV Push, INTRA-OP PRN ONCE MAY REPEAT, Starting on Wed11/10/23 at 1738, Until Wed11/10/23 at 181 Given 11/10/2023 5:38 PM CDT 4 mg phenylephrine (YAMILETH-SYNEPHRINE) 0.2 mg/mL infusion Intravenous, PERIOP CONTINUOUS, Starting on Wed11/10/23 at 1720, Until Wed11/10/23 at 181 Infusing 11/10/2023 5:22 PM CDT 0.2 mcg/kg/min 8.43 mL/hr New Bag 11/10/2023 5:16 PM CDT 0.4 mcg/kg/min 16.86 mL/ hr phenylephrine (YAMILETH-SYNEPHRINE) 1 mg/10mL injection IV Push, INTRA-OP PRN ONCE MAY REPEAT, Starting on Wed11/10/23 at 1659, Until Wed11/10/23 at 1810 Given 11/10/2023 5:47 PM CDT 200 mcg Given 11/10/2023 5:09 PM CDT 250 mcg Given 11/10/2023 5:03 PM CDT 100 mcg propofol (DIPRIVAN) 10 mg/mL injection emulsion Intravenous, INTRA-OP PRN ONCE MAY REPEAT, Starting on Wed11/10/23 at 1639, Until Wed11/10/23 at 1810 Given 11/10/2023 4:39 PM CDT 200 mg rocuronium bromide (ZEMURON) 10 mg/mL injection IV Push, INTRA-OP PRN ONCE MAY REPEAT, Starting on Wed11/10/23 at 1639, Until Wed11/10/23 at 1810 Given 11/10/2023 4:39 PM CDT 60 mg sugammadex (BRIDION) 200 mg/2 mL injection IV Push, INTRA-OP PRN ONCE MAY REPEAT, Starting on Wed11/10/23 at 1752, Until Wed11/10/23 at 1810 Given 11/10/2023 5:52 PM CDT 400 mg documented in this encounter
--- OUTSIDE RECORDS SUMMARY | 2024-02-07 08:57 | XMS_ITS | Encounter Summary ---
Author Organization 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
--- OUTSIDE RECORDS SUMMARY | 2024-02-07 08:58 | XMS_ITS | Encounter Summary ---
Author Organization [facility] Address [address] [place] [address]. [place] [address] Phone Care Team Providers Care Alcoholism Worker Name Role Phone Unavailable Primary Care Provider Unavailabl e Reason for Visit * Reason Comments Fever Penis/Scrotal Problem Toe Problem * Auth/Cert (Routine) Specialty Diagnoses / Procedures Referred By Katherine t Referred To Contact SURGERY Diagnoses 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HHS) Hyperglycemia Zac Churchill MD [address] [place] [address] [address] [address] [place] [address] R4.500 [place] [address] Referral ID Status Reason Start Date Expiration Date Visits Re quested Visits Authorized [id number] 1 1 Encounter Details Date Type Department Care Team (Late st Contact Info) Description 11/10/2023 4:00 PM CDT - 11/10/2023 5:42 PM CDT Surgery OR P4 [address] [place] [address] Zac Churchill MD [address] [id number] Excisional debridement, PERINEAL NEC FASC Social History Tobacco Use Types Packs/Day Years Used Date Smoking Tobacco: Never Assessed Sex and Gender Information Value Date Recorded Sex Assigned at Not on file Gender Identity Not on file Sexual Orientation Not on file documented as of this encounter Last Filed Vital Signs Vital Sign Reading Time Taken Comments Blood Pressure 111/76 11/10/2023 4:06 PM CDT Pulse 94 11/10/2023 4:09 PM CDT Temperature 40.1 ??C (104.2 ??F) 11/10/2023 2:44 PM C DT Respiratory Rate 25 11/10/2023 4:09 PM CDT Oxygen Saturation 99% 11/10/2023 4:09 PM CDT Inhaled Oxygen Concentration - - Weight 140.5 kg (309 lb 11.9 oz) 11/10/2023 2:33 PM CDT Height - - Body Mass Index 43.97 11/12/2023 2:06 PM CDT documented in this encounter Discharge Summaries * 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, JAROD, HOB MACHINE OPERATOR - 11/25/2023 7:37 AM CDT GENERAL SURGERY DISCHARGE SUMMARY - 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 Attending Staff: Zac Churchill MD Significant physician provider(s): Jya Ibanez MD ; Donovan Sloan MD; Che [...] will follow up with 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 APRN, HOB MACHINE OPERATOR Malnutrition Weight: (!) 142.9 kg (315 lb 1.6 oz) Wt Change from Previous: 0 Kg Wt Change from Admit: 2.43 Kg % Wt Change from Adm: 1.73 % [place] Body Wt (IBW) Male (kg): 75.26 kg [...] oriented x 3. No gross focal deficits Hospice Patient Care Secretary Needed: no PLANNED DISCHARGE ORDERS: Suture/[place]: None Wound Care Plan: Location: Perineal; Dressing: [...] of plan of care? Yes Okay for [facility] Facility standing orders? Question Response Notes OK for [facility] Facility house standing orders? Yes Other Nursing [...] or contraindicated. Resume previous standing orders per intermediate policy Order Notes Resume previous standing orders per intermediate policy Patient is on a Consistent Carbohydrate [...] 4:30PM, M-F): Call the Surgery Clinic at [phone] After hours or on Holidays: Call the [facility] motel operator . Ask the motel operator to page the general surgery resident occasional caregiver. IF: -- you feel you are getting [...] -- Read all labels for prescription and Nyxs-nya-ttafvau medicines. Ask the pharmacist if your prescription [...] Your Medications These medications were sent to [facility] Discharge Pharmacy - [place] [address] Hours: 30/11 insulin LISPRO 100 UNIT/ML Kwikpen [...] plan. 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 APRN, CNP 11/25/2023 07:37 [facility] Department of Surgery Pager: via telemediq I have spent 45 minutes with this patient today in which greater than 50% of this time was spent incounseling/coordination of care regarding in patient care, review of imaging/labs, chart review andconsultant recommendations. Dictation Disclaimer: Some notes are completed with voice-recognition dictation software. Errors are generally corrected in real time. Please contact me via [phone] staff message if you note any errors [...] - Resources for patient (select all that apply):[id number]} documented in this encounter Medications at Time [...] the discharge summary paperwork with medication orders. Maritime Pilot opened admission encounter and re-faxed discharge paperwork to the provided fax # of [phone]. Tried a second fax # after this wasn't received, which also wasn't received. Third attempt made viaencrypter email. Confirmed received paperwork via encrypted email. Pepe Hernandez RN, 11/25/2023 9:33 PM ED Clinical Coordinator Office: [phone] TelMedIQ: ED Clinical Coordinator * Kate Harmon [...] (Arrive by 12:50 PM) with Dr Palomo ([facility]-5th floor) since he is discharging to [place].Follows with [facility] when closer to home otherwise. Please page occasional caregiver resident with questions. Interval History Patient was [...] CDT Preadmission Screening Submitter InformationPerson Being ReferredMedical InformationADLGeneva General HospitalSubmitResults Results Thank you for submitting a [...] help, contact the Senior LinkAge Line at [phone] or click to contact us. Print this page You have successfully submitted the preadmission screening (PAS) to the Senior LinkAge Line on: Created On 11/24/2023 2:25 PM Your confirmation number is: [id number] Results Level of Care: Based on the information you provided, it appears this person meets level of care for purposes of [place] payment. OBRA: It appears this person does not need an OBRA Level II assessment. Submitter Information Form Type PAS Submitter First and Last Name Caridad Dorsey Direct Agency [facility] [address] [place] [address] [place] [address] Is your Agency outside [place]? Person Being Admitted to Nursing Facility Legal first name Matt Last name Stephanie Date of 1980 Age 43 Gender Male Marital Status N= Never Race A = B = Black or N = or [place] P = [place] or W = White U = Unable to Determine Ethnicity Not / Currently living with: 01 Living Alone Planned living with 04 Living in Congregate Setting Housing Type Home or apartment, including assisted living (09) Mailing Address [address] [place] [address] Zip Code [address] [facility] Medical Information Reason for nursing facility [...] facility the person will admit to?Yes Provider [facility] Nursing Facility Nursing Facility Service Type [facility]ci [address] Code [address] [place] [address] If your provider is not listed check [...] follow-up. 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 Planning on discharge today to [facility] pending insurance approval. PLAN: Neuro/Pain Control: [...] Trend WBCs and fever Skin/Wounds: Perineal debridement dzyi-keu-ki-dry dressings with Vashe; Left hallux amputation -Betadine with 4 x 4 DVT prophylaxis: Lovenox and SCDs Weight Bearing: Heel touch WB in surgical shoe. On the LLW Activity: Ad celia PT/OT: Appreciate Recs Disposition: [facility] on 11/24/23 pending insurance authorization 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 APRN, CNP, 11/24/2023 1:43 PM [facility] Department of Surgery Pager: via telemediq I have spent 30 minutes with this patient today in which greater than 50% of this time was spent incounseling/coordination of care regarding in patient care, review of imaging/labs, chart review andconsultant recommendations. Dictation Disclaimer: Some notes are completed with voice-recognition dictation software. Errors are generally corrected in real time. Please contact me via [employer] staff message if you note any errors [...] Dr Type of ride: [employer] #conformation [phone] Transportation vendor of ride (choose one below):* [facility] [phone] If this ride needs to [...] Clinical Coordinators will be informed via a TelFTL SOLAR page. PCS form was completed in Progress [...] sex Attending provider: Zac Churchill MD Insurance: [facility] Secondary insurance: [place] [employer] Height: Height: 180.3 cm (5' [...] care/Home mgmt/ADL: 18 minutes EDWIN Alvarado/Brian Pager: Amura OT Department Problem: Loss of Herculaneum With ADLs, Risk for Goal: Will complete lower body dressing Description: Patient will complete lower body dressing with Modified Herculaneum (6). Outcome: In progress Goal: Will toilet self Description: Patient will toilet self with Modified Herculaneum (6). Outcome: In progress * Lior Azul [...] Selected Services Address Phone Fax Patient Preferred [facility] Selected [facility] [address] [facility] [address] -- Internal Comment last updated by Lior Azul 11/24/2023 0805 Pending prior auth. Lior Azul, 11/24/2023 8:05 AM Received VM saying they would accept . LVM saying we would accept bed.. Caridad Dorsey, 11/24/2023 7:50 AM Admissions is currently reviewing .Caridad Dorsey, 11/23/2023 9:31 AM No bd available until next week. Caridad Dorsey, 11/18/2023 8:34 AM [facility] ([facility]) Accepted N/A [address] [facility] [address] [phone] -- Internal Comment last updated by Lior Azul 11/24/2023 0840 They can offer us a bed here but we already found one in [place]. Lior Azul, 11/24/2023 8:40 AM [facility] Pending - Request Sent N/A [address] [facility] [address] [phone] -- Internal Comment last updated by Caridad Dorsey 11/23/2023 0937 LVM for admissions .Caridad Dorsey, 11/23/2023 9:37 AM [facility] Declined Current smoking, Bariatric N/A [address] [facility] [address] [phone] -- [facility], [facility] Declined Distance N/A [address] [place] [address], [facility] [address] [phone] -- Internal Comment last updated by Lior Azul 11/22/2023 1218 This is too far from where patient lives. Lior Azul, 11/22/2023 12:18 PM Sent e mail to [facility] .Caridad Dorsey, 11/22/2023 8:10 AM LVM for admissions .Caridad Dorsey, 11/19/2023 7:44 AM Sent email to Missy.Caridad Dorsey, 11/17/2023 2:24 PM [facility] Declined No Contract with Patient's Insurance Carrier N/A [id number] [place] [address] [phone] -- [facility] Declined Current smoking, Acuity [place] [address] [facility] [address] [phone] -- Internal Comment last updated by Caridad Dorsey 11/18/2023 0831 LVM for admissions.Caridad Dorsey, 11/18/2023 8:31 AM [facility] Bed not available N/A [address] [facility] [address] [phone] -- Internal Comment last updated by Lior Azul 11/23/2023 1415 Looking for a bed in the [facility] .Caridad Dorsey, 11/23/2023 9:35 AM LVM for admissions.Caridad Dorsey, 11/19/2023 8:17 AM LVM for admissions.Caridad Dorsey, 11/18/2023 8:37 AM [facility] Declined Bed not available N/A [address] [facility] [address] [phone] -- [facility] Declined Bed not available N/A [address] [facility] [phone] -- [facility] [place] Declined Bed not available N/A [address] [facility] [address] [phone] -- Home Medical Care No active coordination exists for this encounter. 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 On the LLW Activity: Ad celia PT/OT: Appreciate Recs Disposition: Postacute placement recommended-care management and social work looking for a TCU. 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 APRN, PATRICIA, 11/23/2023 3:06 PM [facility] Department of Surgery Pager: via telemediq I have spent 30 minutes with this patient today in which greater than 50% of this time was spent incounseling/coordination of care regarding in patient care, review of imaging/labs, chart review andconsultant recommendations. Dictation Disclaimer: Some notes are completed with voice-recognition dictation software. Errors are generally corrected in real time. Please contact me via [employer] staff message if you note any errors [...] Selected Services Address Phone Fax Patient Preferred [facility] Pending - Request Sent N/A [address] [facility] [phone] -- Internal Comment last updated by Caridad Dorsey 11/23/2023 0931 Admissions is currently reviewing .Caridad Dorsey, 11/23/2023 9:31 AM No bd available until next week. Caridad Dorsey, 11/18/2023 8:34 AM [facility] [place] [facility] Pending - Request Sent N/A [address] [facility] [address] [phone] -- Internal Comment last updated by Lior Azul 11/23/2023 1415 Looking for a bed in the [facility] .Caridad Dorsey, 11/23/2023 9:35 AM LVM for admissions.Caridad Dorsey, 11/19/2023 8:17 AM LVM for admissions.Caridad Dorsey, 11/18/2023 8:37 AM [facility] Pending - Request Sent N/A [address] [facility] [address] [phone] -- Internal Comment last updated by Caridad Dorsey 11/23/2023 0937 LVM for admissions .Caridad Dorsey, 11/23/2023 9:37 AM [facility] Declined Current smoking, Bariatric N/A [address] [facility] [address] [phone] -- [facility] [place] [facility] Declined Distance N/A [address] [address] [phone] -- Internal Comment last updated by Lior Azul 11/22/2023 1218 This is too far from where patient lives. Lior Azul, 11/22/2023 12:18 PM Sent e mail to Allie .Caridad Dorsey, 11/22/2023 8:10 AM LVM for admissions .Caridad Dorsey, 11/19/2023 7:44 AM Sent email to Missy.Caridad Dorsey, 11/17/2023 2:24 PM [facility] Declined No Contract with Patient's Insurance Carrier N/A [id number] [place] [address] -- [facility] Declined Current smoking, Acuity too high N/A [address] [facility] [address] [phone] -- Internal Comment last updated by Caridad Dorsey 11/18/2023 0831 LVM for admissions.Caridad Dorsey, 11/18/2023 8:31 AM [facility] Declined Bed not available N/A [address] [facility] [address] [phone] -- The [facility] Declined Bed not available N/A [address] [facility] [address] [phone] -- The [facility], [facility] Declined Bed not available N/A [address] [facility] [address] [phone] -- Home Medical Care No active coordination exists for this encounter. * Caridad Dorsey - 11/23/2023 9:42 AM CDT Continued Care and Services - Admitted Since 11/10/2023 Destination Service Provider Request Status Selected Services Address Phone Fax Patient Preferred [facility] Pending - Request Sent N/A [address] [facility] [address] -- Internal Comment last updated by Caridad Dorsey 11/23/2023 0931 Admissions is currently reviewing .Caridad Dorsey, 11/23/2023 9:31 AM No bd available until next week. Caridad Dorsey, 11/18/2023 8:34 AM [facility], [facility] [place] [facility] Pending - Request Sent N/A [address] [facility] [address] [phone] -- Internal Comment last updated by Caridad Dorsey 11/23/2023 0935 Looking for a bed in the [facility] .Caridad Dorsey, 11/23/2023 9:35 AM LVM for admissions.Caridad Dorsey, 11/19/2023 8:17 AM LVM for admissions.Caridad Dorsey, 11/18/2023 8:37 AM [facility] [place] [facility] Pending - Request Sent N/A [address] [facility] [address] -- [facility] Pending - Request Sent N/A [address] [facility] [address] [phone] -- Internal Comment last updated by Caridad Dorsey 11/23/2023 0937 LVM for admissions .Caridad Dorsey, 11/23/2023 9:37 AM [facility] Declined Current smoking, Bariatric N/A [address] [facility] [address] [phone] -- [facility] [place] [facility] Declined Distance N/A [address] [address] [phone] -- Internal Comment last updated by Lior Azul 11/22/2023 1218 This is too far from where patient lives. Lior Azul, 11/22/2023 12:18 PM Sent e mail to Allie .Caridad Dorsey, 11/22/2023 8:10 AM LVM for admissions .Caridad Dorsey, 11/19/2023 7:44 AM Sent email to Missy.Caridad Dorsey, 11/17/2023 2:24 PM [facility] Declined No Contract with Patient's Insurance Carrier N/A [id number] [place] [address] -- [facility] Declined Current smoking, [place] [address] [facility] [id number] -- Internal Comment last updated by Caridad Dorsey 11/18/2023 0831 LVM for admissions.Caridad Dorsey, 11/18/2023 8:31 AM [facility] Declined Bed not available N/A [address] [facility] [address] [phone] -- [facility], [facility] Declined Bed not available N/A [address] [facility] [address] [phone] -- Home Medical Care No active coordination exists for this encounter. * Chayo Townsend, OTR/L - 11/22/2023 2:56 PM CDT Occupational [...] mgmt/ADL: 13 minutes Chayo Townsend OTR/L Pager: [facility] OT Department Problem: Loss of Herculaneum With ADLs, Risk for Goal: Will complete lower body dressing Description: Patient will complete lower body dressing with Modified Herculaneum (6). Outcome: In progress Goal: Will toilet self Description: Patient will toilet self with Modified Herculaneum (6). Outcome: In progress * Arden Elena [...] gait with or without AD, static/dynamic balance. SOILED LINEN DISTRIBUTOR Appropriate: Yes Arden Elena PTA 11/22/2023 Pager: [facility] PT Dept Problem: Decreased Transfer Skills Goal: Patient will transfer sit to/from stand Description: Patient will transfer sit to/from stand while Heel touch WB on L LE in post-op shoe with (6) Modified Herculaneum in order to mobilize in home by [...] 12:09 PM CDTSummary: DC Planning DC Planning [facility] Minnie, RN - O: [phone] [facility] RN is calling her asking her when [...] agrees with sending referrals to SNFs around [place]. He wants CC to let sister know as well. CC called sister. No answer. LVM. Lior Azul, 11/22/2023 2:41 PM * Nico Hogue MD - 11/22/2023 9:13 AM CDT SURGERY PROGRESS NOTE--PGY1 Matt Thibodeaux Devante [...] bedtime. -Continue Amlodipine 10mg Daily - Resume SOILED LINEN DISTRIBUTOR losartan 50mg PO Daily when Cr is closer to baseline (1.0) Acute Kidney Injury Monitor urine output and BMP closely. 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 Would give [...] the patient on the date of the consumer loan underwriter's note. I discussed with the consumer loan underwriter of the note and agree with their findings and plan documented in the consumer loan underwriter's note from above. Any revisions by me [...] MCH 28.0 11/21/2023 0452 MCHC 31.4 11/21/2023 045 RDW 14.6 (H) [...] bedtime. -Continue Amlodipine 10mg Daily - Resume SOILED LINEN DISTRIBUTOR losartan 50mg PO Daily when Cr is closer to baseline (1.0) Acute Kidney Injury Monitor urine output and BMP closely. 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 Would give dose here if due and if available on formulary. Tobacco use - offer nicotine patches, gum, lozenges while inpatient - cessation counseling provided Neuro/Pain Control: Multimodal -Scheduled: Tylenol, Gabapentin, cyclobenzaprine, Lexapro, Trazodone -PRN: Oxycodone Skin/Wounds: Daily dressing changes by nursing DVT prophylaxis: Ambulating Weight Bearing: WBAT Activity: Ad celia/with assist Disposition: Home iNcola Vasquez MD, 11/21/2023 12:31 PM PGY-1 General [...] are above goal here (FPG goal <150). SOILED LINEN DISTRIBUTOR lantus 30 units BID, lispro 10 units TID AC, metformin 500mg BID. A1c 6.8% on 07/27/23. Complications include h/o diabetes related infections. Hold SOILED LINEN DISTRIBUTOR metformin while admitted. Continue statin. 11/12 got 25u lantus (<0.2/kg) and 35u aspart. Likely needs increase in insulin dosing but also use caution with impaired renal clearance / worsening renal function and this can contribute to hypoglycemia. Serum glucose levels are slightly improved on SOILED LINEN DISTRIBUTOR regimen of 30 U daily Lantus. Serum [...] by facility provider. Paranoid schizophrenia - restarted SOILED LINEN DISTRIBUTOR meds (escitalopram 20mg qhs, trazodone 50mg qhs, [...] outpatient on 11/25 or 2 Resume patient's SOILED LINEN DISTRIBUTOR losartan 50mg PO daily when Cr is [...] changes can be done by his current mcfp; I encouraged him to discuss that with his primary team and machine adjuster leader case trim. Amenable to plan, looking forward to leaving [...] standpoint. Patient follows with Dr Hayden in [facility] and would prefer to follow up with him upon discharge. We are happy to schedule anappointment with patient if he wishes to follow up with our team. Please page occasional caregiver resident with questions. Interval History Patient was [...] 1:28 PM CDT SURGERY PROGRESS NOTE--PGY1 Matt Low [...] 0818 MCV 89.3 11/20/2023 0818 MCH 28.4 11/20/2023817 MCHC 31.8 11/20/202318 RDW 14.3 11/20/2023817 MPV [...] and BMP closely. 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 Would give [...] are above goal here (FPG goal <150). SOILED LINEN DISTRIBUTOR lantus 30 units BID, lispro 10 units TID AC, metformin 500mg BID. A1c 6.8% on 07/27/23. Complications include h/o diabetes related infections. Hold SOILED LINEN DISTRIBUTOR metformin while admitted. Continue statin. 11/12 got 25u lantus (<0.2/kg) and 35u aspart. Likely needs increase in insulin dosing but also use caution with impaired renal clearance / worsening renal function and this can contribute to hypoglycemia. Serum glucose levels are slightly improved on SOILED LINEN DISTRIBUTOR regimen of 30 U daily Lantus. Serum glucose levels better controlled today and more consistent in the 126 - 165 range. Continue current dosing for now with monitoring of serum glucose levels. Paranoid schizophrenia - restarted SOILED LINEN DISTRIBUTOR meds (escitalopram 20mg qhs, trazodone 50mg qhs, prazosin 1mg qhs). Given paliperidone (Invega) IM on 11/12/23 (due every 4 weeks for schizophrenia) Tobacco use - offer nicotine patches, gum, lozenges while inpatient H/o TBI Obesity RECOMMENDATIONS 11/15/23 Continue Lantus to 30 U qd Continuing amlodipine, monitoring BP to determine if second agent needed with recent improvement Resume patient's SOILED LINEN DISTRIBUTOR losartan 50mg PO daily when Cr is closer to baseline (likely ~1.0) Strict I/O, monitor UOP. Avoid nephrotoxins (IV contrast, NSAIDs), renal dosing of meds Medicine service will sign off tomorrow 11/20 if clinical stability/improvement continues. Please page Hospitalist Consult A on Mobitto for any further issues or questions. SUBJECTIVE/Events [...] today 11/19. Labs reviewed Scar Leyva MD [facility] Medicine * Scar Leyva MD [...] are above goal here (FPG goal <150). SOILED LINEN DISTRIBUTOR lantus 30 units BID, lispro 10 units TID AC, metformin 500mg BID. A1c 6.8% on 07/27/23. Complications include h/o diabetes related infections. Hold SOILED LINEN DISTRIBUTOR metformin while admitted. Continue statin. 11/12 got 25u lantus (<0.2/kg) and 35u aspart. Likely needs increase in insulin dosing but also use caution with impaired renal clearance / worsening renal function and this can contribute to hypoglycemia. Serum glucose levels are slightly improved on SOILED LINEN DISTRIBUTOR regimen of 30 U daily Lantus. One reading of 69 yesterday - unclear if patient had any symptoms. Continue current dosing for now with monitoring of serum glucose levels. Paranoid schizophrenia - restarted SOILED LINEN DISTRIBUTOR meds (escitalopram 20mg qhs, trazodone 50mg qhs, prazosin 1mg qhs). Given paliperidone (Invega) IM on 11/12/23 (due every 4 weeks for schizophrenia) Tobacco use - offer nicotine patches, gum, lozenges while inpatient H/o TBI Obesity RECOMMENDATIONS 11/15/23 Continue Lantus to 30 U qd Continuing amlodipine, monitoring BP to determine if second agent needed with recent improvement Resume patient's SOILED LINEN DISTRIBUTOR losartan 50mg PO daily when Cr is closer to baseline (likely ~1.0) Strict I/O, monitor UOP. Avoid nephrotoxins (IV contrast, NSAIDs), renal dosing of meds Medicine will continue to follow. Please page Hospitalist Consult A on Mobitto for any further issues or questions. SUBJECTIVE/Events [...] today 11/18. Labs reviewed Scar Leyva MD [facility] Medicine * Kenrick Fisher Chi, PT - 11/19/2023 1:21 PM CDT Physical Therapy Patient not seen today d/t prioritisation/time constraints. Kenrick Fisher, PT License #[id number] PT Tel #: [phone] On Diet TV or Splore * Nicola Vasquez MD - 11/19/2023 11:54 [...] 2/2 uncontrolled Td2m. 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 male pmhx of T2DM with prior right toe amputations transferred from [facility] forFournier's gangrene, s/p I&D x 2, currently [...] 1 of 2 Imaging results: Reviewed in [facility] Gulshan José MD ID fellow, [id number] Discussed [...] RN - 11/19/2023 10:39 AM CDT 11/19/23 [facility] Rapid Rounds Attendance Charge nurse;manager multicultural;drum worker Expected Discharge Disposition SNF (TCU) Today [...] mgmt/ADL: 23 minutes Chayo Townsend OTR/L Pager: [employer] OT Department Problem: Loss of Herculaneum With ADLs, Risk for Goal: Will complete lower body dressing Description: Patient will complete lower body dressing with Modified [place]aneum (6). Outcome: In progress Goal: Will toilet self Description: Patient will toilet self with Modified [place]um (6). Outcome: In progress * Paula Black [...] standpoint. Patient follows with Dr Hayden in [facility] and would prefer to follow up with him upon discharge. We are happy to schedule anappointment with patient if he wishes to follow up with our team. Please page occasional caregiver resident with questions. Interval History Patient was [...] Pager: Lisa OT Department Problem: Loss of [place] With ADLs, Risk for Goal: Will complete lower body dressing Description: Patient will complete lower body dressing with Modified [place] (6). Outcome: In progress Goal: Will toilet self Description: Patient will toilet self with Modified [place] (6). Outcome: In progress * Kenrick Fisher Chi, PT - 11/18/2023 3:23 PM CDT Problem: Decreased Transfer Skills Goal: Patient will transfer sit to/from stand Description: Patient will transfer sit to/from stand while Heel touch WB on L LE in post-op shoe with (6) Modified [place] in order to mobilize in home by [...] up. Reconfirmed that he lives in an GROUP [facility]- a 1 floor building. Has his own room w a toilet inside. He shares bathing facilities wother residents in the house. He eats his meals and snacks in the dining room. He has NO stairs to negotiate. O:Hospice Patient Care Secretary Used: None needed Mental Status Mental Status: [...] remain heel touch WB on L LE. SOILED LINEN DISTRIBUTOR Appropriate: Yes Kenrick Fisher, PT 11/18/2023 Pager: [...] are above goal here (FPG goal <150). SOILED LINEN DISTRIBUTOR lantus 30 units BID, lispro 10 units TID AC, metformin 500mg BID. A1c 6.8% on 07/27/23. Complications include h/o diabetes related infections. Hold SOILED LINEN DISTRIBUTOR metformin while admitted. Continue statin. 11/12 got 25u lantus (<0.2/kg) and 35u aspart. Likely needs increase in insulin dosing but also use caution with impaired renal clearance / worsening renal function and this can contribute to hypoglycemia. Serum glucose levels are slightly improved today with increase in Lantus to 28 U; increasing today to SOILED LINEN DISTRIBUTOR dose of 30 U Lantus daily. Paranoid schizophrenia - restarted SOILED LINEN DISTRIBUTOR meds (escitalopram 20mg qhs, trazodone 50mg qhs, prazosin 1mg qhs). Given paliperidone (Invega) IM on 11/12/23 (due every 4 weeks for schizophrenia) Tobacco use - offer nicotine patches, gum, lozenges while inpatient H/o TBI Obesity RECOMMENDATIONS 11/15/23 Increased Lantus to 30 U qd Continuing amlodipine, carvedilol discontinued as patient noted some dizziness and BP now near goal. Resume patient's SOILED LINEN DISTRIBUTOR losartan 50mg PO daily when Cr is closer to baseline (likely ~1.0) Strict I/O, monitor UOP. Avoid nephrotoxins (IV contrast, NSAIDs), renal dosing of meds Medicine will continue to follow. Please page Hospitalist Consult A on [employer] for any further issues or questions. SUBJECTIVE/Events of Past 24 Hours: Hospital Day: 8 Mr Low feels good today; more relaxed. Pain controlled. Hoping for discharge soon; he's curiousif his sister might be able to take him home tomorrow, or potentially to a facility (?[facility]?) for extra cares and assistance OBJECTIVE: Blood [...] today 11/17. Labs reviewed Scar Leyva MD [facility] Medicine * Jabari Colby RN [...] Phone Fax Patient Preferred [facility] [place] [facility] Pending - Request Sent N/A [address] [address] [phone] -- Internal Comment last updated by Caridad Dorsey 11/19/2023 0745 LVM for admissions .Caridad Dorsey, 11/19/2023 7:44 AM Sent email to Missy.Caridad Dorsey, 11/17/2023 2:24 PM Nena Ernandez, [facility] [place] [facility] Pending - Request Sent N/A [address] [facility] [address] [phone] -- Internal Comment last updated by Caridad Dorsey 11/19/2023 0818 LVM for admissions.Caridad Dorsey, 11/19/2023 8:17 AM LVM for admissions.Caridad Dorsey, 11/18/2023 8:37 AM [facility] Declined N/A [address] [facility] [address] -- [facility] Declined No Contract with Patient's Insurance Carrier N/A [id number] [place] [id number] [phone] -- [facility] Declined Current smoking, Acuity too high N/A [id number] [facility] [address] [phone] -- Internal Comment last updated by Caridad Dorsey 11/18/2023 0831 LVM for admissions.Caridad Dorsey, 11/18/2023 8:31 AM [facility] Declined Bed not available N/A [address] [facility] [id number] -- Internal Comment last updated by Caridad Dorsey 11/18/2023 0834 No bd available until next week. Caridad Dorsey, 11/18/2023 8:34 AM [facility] Declined Bed not available N/A [address] [facility] [address] [phone] -- Home Medical Care No active coordination exists for this encounter. * Aretha Damon MD - 11/18/2023 8:26 AM CDT ID PROGRESS NOTE Matt Low 1980 Male [id number] ASSESSMENT: # Necrotizing fascitis/Demar's gangrene s/p debridement # Left hallux gangrene s/p amputation # Type II diabetes mellitus 43 y.o. male pmhx of T2DM with prior right toe amputations transferred from [facility] forFournier's gangrene, s/p I&D x 2, currently [...] 11/17/[address] Mullen-operative note available in [facility] Seen this a.m. and was quite sleepy. [...] 1 of 2 Imaging results: Reviewed in [facility] Gulshan José MD, 11/18/2023 8:26 AM Discussed [...] Surgery Inpatient Progress Note - PGY-3 Matt Keyzena : 1980 Sex: male Patient Summary: Matt [...] standpoint. Patient follows with Dr Hayden in [facility] and would prefer to follow up with him upon discharge. We are happy to schedule anappointment with patient if he wishes to follow up with our team. Please page occasional caregiver resident with questions. Patient was discussed with occasional caregiver staff, Interval History Patient was seen and [...] Abdomen soft, non-tender, non-distended. Labs / Imaging: [facility] Lab Results Component Value Date/Time NA 137 [...] urine output closely. 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 Would give [...] renal dysfunction, though UOP is acceptable. Holding SOILED LINEN DISTRIBUTOR losartan 50mg daily. Started amlodipine 10 mg [...] are above goal here (FPG goal <150). SOILED LINEN DISTRIBUTOR lantus 30 units BID, lispro 10 units TID AC, metformin 500mg BID. A1c 6.8% on 07/27/23. Complications include h/o diabetes related infections. Hold SOILED LINEN DISTRIBUTOR metformin while admitted. Continue statin. 11/12 got [...] and diet improve. Paranoid schizophrenia - restarted SOILED LINEN DISTRIBUTOR meds (escitalopram 20mg qhs, trazodone 50mg qhs, prazosin 1mg qhs). Given paliperidone (Invega) IM on 11/12/23 (due every 4 weeks for schizophrenia) Tobacco use - offer nicotine patches, gum, lozenges while inpatient H/o TBI Obesity RECOMMENDATIONS 11/15/23 Continue Lantus 28 U daily for now; may need to continue titration as diet and renal function improve Began carvedilol and amlodipine as above Resume patient's SOILED LINEN DISTRIBUTOR losartan 50mg PO daily when Cr is closer to baseline (likely ~1.0) Switching to IV PRN hydralazine for more aggressive BP control Strict I/O, monitor UOP. Avoid nephrotoxins (IV contrast, NSAIDs), renal dosing of meds Medicine will continue to follow. Please page Hospitalist Consult A on Mobitto for any further issues or questions. SUBJECTIVE/Events [...] check back tomorrow. Shannan Partida OTR/Brian Pager: [phone] * Mabel Mathews RN - 11/17/2023 11:27 AM CDT TRANSFER IN NOTE D: Patient transferred in to STNU 2 from PACU at 1100. Patient condition on arrival: Stable, a/o X4, VSS, on RA, . Patient Belonging 11/10/2023 1440 Reason for Inventory: ED/APS Admission Patient or family informed of Patient Valuables and Belongings Policy (#832011): Due to patient condition, [facility] staff will inventory and secure patient valuables [...] RN - 11/17/2023 10:35 AM CDT 11/17/23 103 Rapid Rounds Attendance Physician;Charge nurse;manager multicultural;drum worker;Bedside nurse Expected Discharge Disposition SNF (TCU for wound care) Today we still await: Procedure (Comment) (toe amputation today) Case Management Discharge Milestones Documentation CM Assessment Completed? Yes Patient/Family agree w/DC plan? Yes Transportation Plan WC/Taxi/Stretcher Prior Auth/Pre-Admit Screen (!) Not completed 11/17/231033 Rapid Rounds Attendance Physician;Charge nurse;manager multicultural;drum worker;Bedside nurse Expected Discharge Disposition SNF (TCU for wound care) Today we still await: Procedure (Comment) (toe amputation today) Case Management Discharge Milestones Documentation CM Assessment Completed? Yes Patient/Family agree w/DC plan? Yes Transportation Plan WC/Taxi/Stretcher Prior Auth/Pre-Admit Screen (!) Not completed Pt will DC to TCU, as his [facility] cannot do the daily dressing changes to [...] discharge. Patient follows with Dr Hayden in [facility] CHIEF COMPLAINT: Immediate postop HISTORY OF [...] urine output closely. 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 Would give dose here if due and if available on formulary. Tobacco use - offer nicotine patches, gum, lozenges while inpatient - cessation counseling as able Neuro/Pain Control: Multimodal -Scheduled: Tylenol, Gabapentin, cyclobenzaprine, Lexapro, Trazodone -PRN: Hydromorphone Skin/Wounds: Dressing changed (11/16) DVT prophylaxis: SCDs, Lovenox 40 BID Weight Bearing: WBAT Activity: Ad celia/with assist Disposition: iNcola De Los Santos MD, 11/17/2023 9:19 AM [...] Fisher, PT License #[id number] PT Tel #: [phone] On Diet TV or Splore * Nico Hogue MD - 11/16/2023 9:49 [...] Actinomyces species Medicine consult (11/14): Resume patient's SOILED LINEN DISTRIBUTOR losartan 50mg PO daily when Cr is [...] urine output closely. 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 Would give [...] are above goal here (FPG goal <150). SOILED LINEN DISTRIBUTOR lantus 30 units BID, lispro 10 units TID AC, metformin 500mg BID. A1c 6.8% on 07/27/23. Complications include h/o diabetes related infections. Hold SOILED LINEN DISTRIBUTOR metformin while admitted. Continue statin. 11/12 got [...] renal dysfunction, though UOP is acceptable. Holding SOILED LINEN DISTRIBUTOR losartan 50mg daily. Agree with prn hydralazine but would changeto PO. Could start new agent (such as amlodipine) but patient should ultimately resume ARB once renal function is improved Paranoid schizophrenia - restarted SOILED LINEN DISTRIBUTOR meds (escitalopram 20mg qhs, trazodone 50mg qhs, prazosin 1mg qhs). Given paliperidone (Invega) IM on 11/12/23 (due every 4 weeks for schizophrenia) Tobacco use - offer nicotine patches, gum, lozenges while inpatient H/o TBI Obesity RECOMMENDATIONS 11/15/23 Continue Lantus 28 U daily for now; may need to continue titration as diet and Resume patient's SOILED LINEN DISTRIBUTOR losartan 50mg PO daily when Cr is [...] follow. Please page Hospitalist Consult A on Mobitto for any further issues or questions. 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 11/15/2023 1400 by Chayo Townsend OTR/L Outcome: In progress 11/15/2023 1357 by Chayo Townsend OTR/L Outcome: In progress Goal: Will toilet self Description: Patient will toilet self with Modified [place]um (6). 11/15/2023 1400 by Chayo Townsend OTR/L Outcome: In progress 11/15/2023 1357 by Chayo Townsend OTR/L Outcome: In progress * Kenrick Fisher Chi, PT - 11/15/2023 11:23 AM CDT Images from the original note were not included. Problem: Decreased Transfer Skills Goal: Patient will transfer sit to/from stand Description: Patient will transfer sit to/from stand with (6) Modified [place] in order to mobilize in home by 11/28/23. Outcome: In progress Problem: Decreased Ambulatory Skills Goal: Improve gait Description: Ambulate 100 meters using No assistive devices with (6) Modified [place] in orderto mobilize in home and community [...] transfer supine to/from sit with (6) Modified [place] in order to mobilize in/out of bed by 11/28/23. Outcome: Met Physical Therapy Progress Note PT Discharge Recommendations Discharge Recommendations: Safety risk for discharge home today. Barriers to discharge to home/community: Insufficient activity tolerance;Pain;Caregiver availability not yet confirmed. Would be good if someone from the treatment team calls his [facility] to see how much help he can [...] kind of help he gets/can get from [facility] staff and if he needs to do [...] and isn't able to get help from [facility] staff for mobility, then recommend he go [...] vs try no AD. Try stairs eventually? SOILED LINEN DISTRIBUTOR Appropriate: Yes Kenrick Fisher, PT 11/15/2023 Pager: [...] Actinomyces species Medicine consult (11/14): Resume patient's SOILED LINEN DISTRIBUTOR losartan 50mg PO daily when Cr is [...] urine output closely. 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 Would give [...] Crawford LGSW - 11/15/2023 9:39 AM CDT Hand Router Operator Progress Note Spoke to SABINE Hartman at [facility], where patient resides. Informed her pt will likely be ready for discharge towards the end of the week per MDR. Asked if they are able to assist with daily wound care. Unfortunately facility cannot help with this. The facility helps with med management, meals, housekeeping, and laundry. May have to explore options for home health or TCU for woundcare. [facility] - [phone] opt 3. Dominga Crawford LGSW, 11/15/2023 2:59 [...] pt may be able to return to [facility] given participation with PT on 11/13 but [...] are above goal here (FPG goal <150). SOILED LINEN DISTRIBUTOR lantus 30 units BID, lispro 10 units TID AC, metformin 500mg BID. A1c 6.8% on 07/27/23. Complications include h/o diabetes related infections. Hold SOILED LINEN DISTRIBUTOR metformin while admitted. Continue statin. 11/12 got 25u lantus (<0.2/kg) and 35u aspart. Likely needs increase in insulin dosing but also use caution with impaired renal clearance / worsening renal function and this can contribute to hypoglycemia. HTN - above goal overnight. ARB is being held. Also may be hypervolemic given renal dysfunction, though UOP is acceptable. Holding SOILED LINEN DISTRIBUTOR losartan 50mg daily. Agree with prn hydralazine but would changeto PO. Could start new agent (such as amlodipine) but patient should ultimately resume ARB once renal function is improved Paranoid schizophrenia - restarted SOILED LINEN DISTRIBUTOR meds (escitalopram 20mg qhs, trazodone 50mg qhs, prazosin 1mg qhs). 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 Would give [...] assist Disposition: CHRIS Cordero Ma MS3 11/14/2023 [facility] Department of Surgery Pager: via [...] Ibanez MD, 11/16/2023 12:27 PM * Autumn Lamar, PharmD - 11/14/2023 7:43 AM CDT Images [...] recent) Autumn Lamar PharmD 11/14/2023 07:56 Pager: ([facility] SOLAR) * Shani Shaw MD - 11/14/2023 7:18 [...] are above goal here (FPG goal <150). SOILED LINEN DISTRIBUTOR lantus 30 units BID, lispro 10 units TID AC, metformin 500mg BID. A1c 6.8% on 07/27/23. Complications include h/o diabetes related infections. Hold SOILED LINEN DISTRIBUTOR metformin while admitted. Continue statin. 11/12 got 25u lantus (<0.2/kg) and 35u aspart. Likely needs increase in insulin dosing but also use caution with impaired renal clearance / worsening renal function and this can contribute to hypoglycemia. HTN - above goal overnight. ARB is being held. Also may be hypervolemic given renal dysfunction, though UOP is acceptable. Holding SOILED LINEN DISTRIBUTOR losartan 50mg daily. Agree with prn hydralazine but would changeto PO. Could start new agent (such as amlodipine) but patient should ultimately resume ARB once renal function is improved Paranoid schizophrenia - restarted SOILED LINEN DISTRIBUTOR meds (escitalopram 20mg qhs, trazodone 50mg qhs, [...] 3.28 (L) 11/13/2023 0518 HGB 9.2 (L) 11/13/202318 HCT 30.0 (L) 11/13/2023517 PLT 317 11/13/202318 MCV 91.5 11/13/202318 MCH 28.0 11/13/2023 0518 MCHC 30.7 (L) 11/13/202318 RDW 13.5 11/13/202318 MPV 10.1 11/13/202318 NEUTNO 13.41 (H) 11/11/2023535 LYMPHAB 2.96 11/11/2023535 MONOABSNO 0.87 11/11/2023535 EOSNUMB 0.00 11/10/2023 1431 BASO 0.17 11/11/2023535 Collected Specimen Type Organism 11/10/23 Tissue Staphylococcus epidermidis Actinomyces species Staphylococcus pettenkoferi 11/10/23 Swab Anaerococcus vaginalis 11/10/23 Swab Staphylococcus epidermidis Actinomyces species 11/10/2023 1713 11/12/2023 1417 ANAEROBE CULTURE [[id number]] (Abnormal) Tissue from Perineal 2:Perineal tissue Preliminary result Component Value Preliminary Report Positive Culture Many mixed anaerobes present. Culture in progress. POS 11/10/2023 17111/12/2023 1441 TISSUE CULTURE:INCLUDES GRAM STAIN [[id number]] (Abnormal) Tissue from Perineal 2:Perineal tissue Preliminary [...] clusters. POS 11/10/2023 17111/12/2023 1416 ANAEROBE CULTURE [[id number]] (Abnormal) Swab from Perineal 1: Perineal tissue swab Preliminary result Component Value Preliminary Report Moderate Anaerococcus vaginalis isolated. Culture in progress. POS Organism ANAEROCOCCUS VAGINALIS POS 11/10/2023 17111/12/2023 1534 WOUND CULTURE:GRAM STAIN OPTIONAL [[id number]] (Abnormal) Swab from Perineal 1: Perineal tissue [...] NPO with excellent blood sugarcontrol. 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 Would give [...] RECOMMENDATIONS: Demar's Gangrene Necrotizing fasciitis Transferred from [facility] for scrotal swelling, pain, concern for Demar's [...] NPO with excellent blood sugarcontrol. 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 Would give dose here if due and if available on formulary. Tobacco use - offer nicotine patches, gum, lozenges while inpatient - cessation counseling as able (pt unable to engage today) H/o TBI Obesity PLAN: Neuro/Pain Control: Multimodal Scheduled: Tylenol, Gabapentin, cyclobenzaprine PRN: Hydromorphone CV: Monitor blood pressure and pulse and intervene as needed. Restart shrimping boat captain rosuvastatin 10mg qHS Pulm: Encourage incentive [...] Disposition: Nico Murray MD, 11/13/2023 8:25 AM [facility] Department of Surgery Pager: via [...] Type 2 DM with neuropathy, retinopathy - SOILED LINEN DISTRIBUTOR lantus 30 units BID, lispro 10 units TID AC, [id number] BID. A1c 6.8% on 07/27/23. Complications include h/o diabetes related infections. Hold SOILED LINEN DISTRIBUTOR metformin while admitted. Continue statin. HTN - mostly at goal off antihypertensives. Holding SOILED LINEN DISTRIBUTOR losartan 50mg daily Paranoid schizophrenia - restarted SOILED LINEN DISTRIBUTOR meds (escitalopram 20mg qhs, trazodone 50mg qhs, [...] follow. Please page Hospitalist Consult A on [employer] for any further issues or questions. SUBJECTIVE/Events [...] Shaw MD, 11/13/2023 7:55 AM * Gala Salinas PharmD - 11/12/2023 2:59 PM CDT Images [...] Jaxon 11/12/2023 14:59 Pager: (Telmediq) * Gracia Kumar, RN - 11/12/2023 1:00 PM CDT 11/12/23 1254 Hospice Patient Care Secretary Used. Hospice Patient Care Secretary Used None needed (interview conducted with [facility] staff) Social Information Living Situation correction Facility Admitted From hospital (Admitted from [facility]) Name of facility [facility] Patient medically appropriate to transfer back to outside hospital? No Patient Identified Support System [facility] staff Services Receiving STRUCTURAL ENGINEER / Skilled Services;Case Management;Waivered services (see comment) Complex Medical Needs Other (see comment) Transportation Used for Discharge wound care Safety Concerns None Behavioral Health Concerns None Patient Family Goals Patient's Discharge Goal back to [facility] Family's Discharge Goal no family Plan/Interventions Expected Discharge Disposition [facility] Was Patient Choice Provided? No Who was Choice Provided to? Other (comment) (pt will return to SOILED LINEN DISTRIBUTOR facility when medically stable) Patient Information Verification Verified demographic information, including SSN, Next of Kin, and Guardianship Yes Verified PCP Yes If post-acute placement is needed, have vaccination status needs been addressed? Yes Pt admitted from [facility] after [facility] for treatment of Demar's gangrene of perineal area * Nico Hogue MD - 11/12/2023 8:02 AM CDT SURGERY PROGRESS NOTE--WOOD HEEL FINISHER Matt Low : 1980 Sex: male SIGNIFICANT [...] 0536 MCV 88.6 11/11/2023 0536 MCH 28.7 11/11/202336 MCHC 32.4 11/11/202336 RDW 13.2 11/11/2023535 MPV 10.1 11/11/2023535 NEUTNO 13.41 (H) 11/11/2023535 LYMPHAB 2.96 11/11/2023 0536 MONOABSNO 0.87 11/11/2023535 EOSNUMB 0.00 11/10/2023 1431 [...] Disposition: Nico Murray MD, 11/12/2023 8:03 AM [facility] Department of Surgery Pager: via [...] Comments: RN: Gloria Velez RN Extension #: [id number] * Robert Kruse MDIV - 11/11/2023 1:43 PM CDT SPIRITUAL CARE VISIT SUMMARY Matt Low : 1980 Sex: male LOS: 1 day Reason for visit: Referral Assessment: Pt/family uncertain/anxious/frustrated;Pt/family coping/relieved Intervention: Compassionate support;Facilitate communication;Lead/support spiritual rituals Outcome: Situation assessed;Gratitude expressed;Ritual provided Notes: I met with Matt at bedside during rounds. Matt shared that he wanted a prayer for healing and yarsanism of his health which I offered as requested. He had no other support needs at this time. Plan: Spiritual Care Team is available to support patient and family as needed via number [phone]. Robert Kruse MDIV, 11/11/2023 1:43 PM Number: [phone] * Hannah Boland RT - 11/11/2023 12:40 [...] male D: Matt Low was admitted to [facility] from PACU at 0600 for [place] gangrene [...] informed of Patient Valuables and Belongings Policy (#[id number]): Due to patient condition, [facility] staff will inventory and secure patient valuables Items Needing Securement: Cell phone Cell Phone Secured?: Yes Cell Phone Visually Damaged: Yes Patient Belongings: Clothing Clothing Comments: shirt, 1 shoe, 1 sock, * Gracia Tirado MDIV - 11/10/2023 3:26 PM CDT Diesel Tractor Operator Stabilization Room Note Matt Low : 1980 Sex: male LOS: 0 days Initial Description: Matt Low with history of gangrene. Pt was responding appropriately to questions. Patient and Family Context: No family present. Pt came from a facility in [place]. Plan: Spiritual Care Team is available to support patient and family as needed via number [phone]. Gracia Tirado MDIV, 11/10/2023 3:27 PM Number: [phone] * Camilla Treviño PharmD - 11/10/2023 2:38 PM CDT ED [...] for 2 days. 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 He has a history of T2DM on 10u long acting insulin three times daily, situs inversus, and TBI several years ago and lives in a [facility]. CT at OSH showed gas in perineal [...] file. Attending Physician: No att. providers found Palua Vazquez MD 11/10/2023 14:52 EM PGY2 Green Surgery Associated attestation - Zac Churchill MD - 11/15/2023 2:03 PM CDT FACULTY NOTE I saw and evaluated the patient on the date of the consumer loan underwriter's note. I discussed with the consumer loan underwriter of the note and agree with their findings and plan documented in the consumer loan underwriter's note from above. Any revisions by me are documented. Zac Churchill MD, 11/15/2023 2:03 PM documented in this encounter Consult Notes * Gala Salinas, PharmD - 11/24/2023 2:22 PM CDTAssociated Order(s): DISCHARGE MED REC FINAL REVIEW BY PHARMACY PHARMACY DISCHARGE NOTE Stephanie Low : 1980 Sex: male Pharmacy service was consulted for review of patient's discharge medications. Assessment: Pertinent points to note: -- SOILED LINEN DISTRIBUTOR losartan, metformin and ibuprofen all discontinued due to ongoing acute kidney injury. I have reviewed the patient's medications for discharge and have discussed the necessary changes with the provider. Changes have been made and medication list updated and complete. Please page with any questions. Gala Salinas PharmD 11/24/2023 14:22 For questions regarding this note, please contact pharmacist on service at PharmD [facility] ([facility]) [phone]. If no response within needed timeframe, please contact central pharmacy via phone at [phone]. Planned discharge medications are: Medication List Medications [...] 2 Diabetes Reduced from twice daily dosing SOILED LINEN DISTRIBUTOR, per Medicine recommendations. insulin LISPRO 100 UNIT/ML Kwikpen Commonly known as: HumaLOG KwikPen Inject 6 UNITS subcutaneously 3 times daily before meals. Reduced from 10 units per dose SOILED LINEN DISTRIBUTOR, per Medicine recommendations. Invega Sustenna 156 MG/ML [...] follow. Patient follows with Dr Hayden in [place] SOILED LINEN DISTRIBUTOR Please page occasional caregiver resident with questions. Patient was seen with occasional caregiver staff, Dr. Black CHIEF COMPLAINT: Left hallux wound HISTORY OF PRESENT ILLNESS: Matt Low is a 43 y.o. male presenting with left hallux necrosis. Patient initially presented to [facility] for concern for foreigners gangrene on 11-09. [...] No primary care provider on file. Samina Sinlgetary DPM, 11/16/2023 1:47 PM Podiatric Surgery Resident [...] 74.09 Activity Intolerance Z 73.89 [facility]CA[facility] Patient Care Secretary Used: None needed ACTIVITY Up ad Celia [...] Type 2 DM with neuropathy, retinopathy - SOILED LINEN DISTRIBUTOR lantus 30 units BID, lispro 10 units TID AC, [id number] BID. A1c 6.8% on 07/27/23. Complications include h/o diabetes related infections. Hold SOILED LINEN DISTRIBUTOR metformin while admitted. Continue statin. HTN - mostly at goal off antihypertensives. Holding SOILED LINEN DISTRIBUTOR losartan 50mg daily Paranoid schizophrenia - restarted SOILED LINEN DISTRIBUTOR meds (escitalopram 20mg qhs, trazodone 50mg qhs, prazosin 1mg qhs). Given paliperidone (Invega) IM on 11/12/23 (due every 4 weeks for schizophrenia) Tobacco use - offer nicotine patches, gum, lozenges while inpatient Medical History No past medical history on file. SOCIAL HISTORY Information gathered from: Patient Home: [facility] in [place] Prior level of function: independent Baseline Ambulation: [...] Status: Oriented X 3, Alert, and Cooperative, [facility] Follows Direction: Yes, 1step OBJECTIVE Initial [...] and previous notes. A&Ox3, but thought at [facility]. Anticipate pt will be able to d/c [...] when ready, stairs as able, standing balance. SOILED LINEN DISTRIBUTOR Appropriate: Yes Participated in goal setting and treatment planning: Patient Agrees with goals and treatment plan: Patient - Yes. Che Garcia, PT 11/14/2023 Pager: [facility] PT Department * Guru Franco MD - 11/13/2023 1:14 PM CDTAssociated Order(s): CONSULT TO INFECTIOUS DISEASE ID-2 NEW CONSULT NOTE Matt Low 1980 male [id number] REASON FOR CONSULT: I was asked to see Matt Low by Zac Churchill regarding Demar's gangrene. ASSESSMENT: 43 y.o. male pmhx of T2DM with prior right toe amputations transferred from [facility] forurnier's gangrene, s/p I&D x 2, currently [...] with prior right toe amputations transferred from [facility] forscrotal swelling, pain, concern for Demar's gangrene, [...] 0518 PLT 317 11/13/2023517 HGB 9.2 (L) 11/13/2023517 [...] tissue fungal cx [facility]: [facility], 11/13/2023 1:14 PM FACULTY NOTE I [...] date) [facility]an : [facility] Prior Level of Function: ADLs/IADLs: Received assistance [...] to month and year; not to place states college campus; intermittently follows 1 steps commands; [...] (11/09 and 11/10). At baseline pt from [facility]. Pt unable to provide any social history [...] Eval: 18 minutes Therapist: EDWIN Alvarado/Brian Pager: [facility] Occupational Therapy Department * Sophie Barajas MD - 11/12/2023 10:07 AM CDTAssociated Order(s): CONSULT TO MEDICINE SERVICES INTERNAL MEDICINE CONSULT- STAFF Matt Low : 1980 Sex: male Reason for Consult: Diabetes management, antibiotic selection IMPRESSION AND RECOMMENDATIONS: Demar's Gangrene Necrotizing fasciitis Transferred from [facility] for scrotal swelling, pain, concern for Demar's [...] NPO with excellent blood sugarcontrol. 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 Would give [...] long enough to participate indiscussion. Transferred from [facility] for scrotal pain and swelling, concern for [...] including pre-visit review of separately obtained history, [id number] interaction performing medically appropriate physical exam, patientcounseling/education, [...] 3:41 PM CDT Operative Report - PGY2 [facility] Matt Anne : 1980 Sex: [...] taken to the OR identified as Matt Lackeymaryzena and the procedure and site verified by [...] 6:07 PM CDT OPERATIVE REPORT - PGY5 [facility] Matt Low : 1980 Sex: [...] PM CDT Pt BIBA as transfer from [place]. 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 Pt given Ertapenem 1gm and Insulin 10 units SOILED LINEN DISTRIBUTOR. BS 400 at outside hospital. Pt is [...] AM CDT Physical Therapy Inpatient Discharge Summary Zenalaurie Daryabailey [id number] PT Discharge Recommendations DC Recommendations: Post-acute placement [...] LE in post-op shoe with (6) Modified [place] in order to mobilize in home by [...] Therapist: Kenrick Fisher PT Date: 11/24/2023 Pager: [facility] PT Department * Discharge non-MD/non-MIRI Summaries - Lior Azul - 11/25/2023 7:36 AM CDT Summary: DC to SNF Care Coordination Discharge Note Expected DC Date: 11/25/23 Expected DC Time: 13h30 Final Discharge Destination: Selected Continued Care - Admitted Since 11/10/2023 Destination Coordination complete. Service Provider Selected Services Address Phone Fax Patient Preferred [facility] [id number] [facility] [phone] -- Summary: Insurance approved Patient has been accepted to continue rehabing at the aforementioned post acute facility. Patient is on board with plan. CC spoke with patient in person in the room Maritime Pilot also confirmed with Minnie REGALADO at . Also, DC summary faxed to [phone], via [employer]. WC ride has been ordered. FIELD MARKETING TEAM LEADER (Hotel Or Motel Cleaning Supervisor Marketing Communications Assistant) will schedule. Check [id number] for confirmation. Medical team is aware. They will work writing DC orders. CC sent DC orders to SNF by [employer] fax. Medical team is aware any controlled substances must be printed and signed to be sent in physical form to the TCU. PLEASE MAKE SURE RX IS COMPLETE. MAKE SURE QUANTITY IS ADDED. Also, PSC/JAVA WEBSPHERE DEVELOPER/RN will fax it to TCU [facility] (this is required so in case of pain during transport, pain control can be addressed) Bedside nurse: please confirm this is done. A [employer] thread has been started. CC will continue to follow until DC. Please use [facility] for any further questions. * Nursing Assessment [...] GI Signs/Symptoms: diarrhea Stool/Urine (mL): 0 mL (11/17/23 2000) Stool (unmeasured): 1 (11/23/23 1507) Stool Amount: [...] Defined Limits * Discharge non-MD/non-MIRI Summaries - Cahyo Townsend, OTR/L - 11/24/2023 12:59 PM CDT [facility] Occupational Therapy Discharge Summary Stephanie Low 11/24/2023 [...] subacute rehab. Patient Name: Stephanie Low MR#: [id number] Date of : 1980 Age: 43 y.o. [...] Living Situation/Social History: Information obtained From: patient;chart (11/13/231099) Help Available at home: yes, 24 hour assist (assumed- pt unable to confirm this date) (11/13/231099) Patient is living in a/an : [facility] (11/13/231099) Prior Level of Function (SOILED LINEN DISTRIBUTOR): ADLs/IADLs: Received assistance from staff at residence [...] Minimal assist (75% patient effort) (CGA) (11/19/23 09) Bed to/from Chair - Method: Standing pivot [...] OR fluctuating course: No (11/19/23899) Inattention: Yes (11/13/23 1100) Disorganized Thinking: No [...] RN - 11/23/2023 4:39 PM CDT Per HOT BOX CHECKER no longer meets IP criteria, documentation in [...] Toe Head to Toe Assessment Shift Summary [id number] Pt is a/o X4 and can make [...] (11/17/231999) Stool (unmeasured): 1 (per pt) (11/21/23 07) Stool Amount: small (11/15/231699) Stool Color: light [...] 0929 -- 6 Wound 11/10/23 Incision Perineum 11/10/231706 [...] 0929 -- 6 Wound 11/10/23 Incision Perineum 11/10/231706 [...] Cardiac Assessment Within Defined Limits except for: Broom Machine Operator - remote telemetry Respiratory Within defined limits [...] 09 -- 5 Wound 11/10/23 Incision Perineum 11/10/23 [...] length Anterior;Left Forearm 11/13/23928 -- 5 Wound 07/03/24 Incision Perineum 11/10/23 1707 Perineum 7 Wound [...] Limits except for: Heart sounds: S1, S2 Broom Machine Operator - remote telemetry Comments: Consistently sustaining SBP [...] Toe Head to Toe Assessment Shift Summary [id number] Pt is a/o X4 and can make [...] Cardiac Assessment Within Defined Limits except for: Broom Machine Operator - remote telemetry Respiratory Within defined limits [...] Palomo DPM - 11/17/2023 9:26 AM CDT [facility] Immediate Post [...] 11/17/2023 09:55 * Nursing Assessment - Raymundo Dulnap RN - 11/17/2023 8:22 AM CDT Nursing Assessment Head to Toe Head to Toe Assessment Shift Summary Patient to the OR at 0800. This consumer loan underwriter called to notify GRANITE CHIP TERRAZZO FINISHERstaff readiness officer of hypertension. Pt had left the room prior to [facility] notifying this consumer loan underwriter of BP of 222/101. Vitals: 11/17/23 0800 [...] State: Anxiety * Nursing Assessment - Krzysztof Brooek RN - 11/16/2023 9:37 PM CDT Nursing [...] Defined Limits * Nursing Assessment - Sheila iDas RN - 11/16/2023 4:21 AM CDT Nursing [...] wants to go outside to smoke, and consumer loan underwriter encouraged the patient not to go outside [...] Cardiac Assessment Within Defined Limits except for: Broom Machine Operator - remote telemetry Respiratory Assessment Within Defined [...] Cardiac Assessment Within Defined Limits except for: Broom Machine Operator - remote telemetry Respiratory Assessment Within Defined [...] Defined Limits except for: Chest Pain: No Broom Machine Operator - remote telemetry Pacemaker: Pacemaker: No Respiratory Assessment Within Defined Limits except for: Respiratory Assessment: Respirations: Pattern irregular Comments: Snoring while sleeping Neurovascular Within Defined Limits Gastrointestinal Assessment Within Defined Limits except for: Abdominal appearance: Obese Stool (unmeasured): 1 (11/14/23 09) Stool Amount: large (11/14/23899) Stool Color: brown [...] Cardiac Assessment Within Defined Limits except for: Broom Machine Operator - remote telemetry Comments: NSR Respiratory Within [...] Cardiac Assessment Within Defined Limits except for: Broom Machine Operator - remote telemetry Respiratory Assessment Within Defined [...] Cardiac: Assessment Within Defined Limits except for: Broom Machine Operator - remote telemetry Respiratory: Assessment Within Defined [...] Note - PGY-1 Matt Low 43 y.o. [id number] Paged at 03:34 on 11/14/23 for elevated [...] for SBP > 180 - Potentially resume SOILED LINEN DISTRIBUTOR losartan per primary team in the AM [...] Cardiac Assessment Within Defined Limits except for: Broom Machine Operator - remote telemetry Respiratory Assessment Within Defined [...] Cardiac Assessment Within Defined Limits except for: Broom Machine Operator - remote telemetry Pacemaker: Pacemaker: No Respiratory [...] Cardiac Assessment Within Defined Limits except for: Broom Machine Operator - remote telemetry Respiratory Assessment Within Defined [...] Cardiac Assessment Within Defined Limits except for: Broom Machine Operator - remote telemetry Respiratory Assessment Within Defined [...] Cardiac Assessment Within Defined Limits except for: Broom Machine Operator - remote telemetry Respiratory Assessment Within Defined [...] Nichols MD - 11/11/2023 3:13 PM CDT [facility] Immediate Post Operative [...] Osborn MD - 11/10/2023 5:07 PM CDT [facility] Immediate Post Operative [...] at time of review in ED - shrimping boat captain abx administered * ED Stabilization Note - Allyssa Drummond MD - 11/10/2023 2:43 PM CDT Emergency Department Stabilization Room Note [facility] Arrival Date and Time: 11/10/2023 2:28 PM MEDICAL TEAM Attending: MD MARCELLUS Grullon Resident: Allyssa Drummond MD RN: Enmanuel HCA: Doreen Consultants: General surgery PRE-HOSPITAL EVENTS & HISTORY Matt Low is a 43 y.o. 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 Patient has a history of type 2 diabetes on 3 times daily 10 units long-acting insulin, situs inversus, and TBI several years ago for which he lives in a [facility]. 2 days ago he noticed pain in his perineum, it has gotten worse over the past several days. His girlfriend urged him to go to the hospital today and the physicians at [place] were concerned for Demar'sgangrene and transferred him [...] CRP 30, procal 0.83, WBC 20 at [place]. We will draw an ESR and our [...] POC Glucose 140(H) 70 - 100 mg/dL [facility] POINT OF CARE Blood 11/25/2023 6:03 AM CDT Jessica Grullon MD LABORATORY Performing Organization Address City/[facility]/ZIP Co de Phone Number [facility] [address] [place] [id number], [place] * (ABNORMAL) POC GLUCOSE (11/24/2023 8:47 PM CDT) POC Glucose 156(H) 70 - 100 mg/dL [place] Blood 11/24/2023 8:47 PM CDT Jessica Grullon MD LABORATORY Performing Organization Address City/[facility]/ZIP Co de Phone Number [place] [address] [place] [phone], [place] * (ABNORMAL) POC GLUCOSE (11/24/2023 4:56 PM CDT) POC Glucose 177(H) 70 - 100 mg/dL [facility] POINT OF [facility] Blood 11/24/2023 4:56 PM CDT Jessica Grullon MD LABORATORY [place] [address] [place] [id number], [place] * (ABNORMAL) POC GLUCOSE (11/24/2023 11:22 AM CDT) POC Glucose 146(H) 70 - 100 mg/dL [facility] - POINT OF CARE Blood 11/24/2023 11:2 2 AM CDT Jessica Grullon MD LABORATORY Performing Organization Address City/[facility]/ZIP Co de Phone Number [facility] POINT OF CARE [address] [place] [address], [place] * (ABNORMAL) POC GLUCOSE (11/24/2023 6:03 AM CDT) POC Glucose 147(H) 70 - 100 mg/dL [facility] - POINT OF CARE Blood 11/24/2023 6:03 AM CDT Jessica Grullon MD LABORATORY Performing Organization Address City/[facility] Co de Phone Number [facility] POINT [facility] [address] [place] [address], [place] * (ABNORMAL) POC GLUCOSE (11/23/2023 7:52 PM CDT) POC Glucose 160(H) 70 - 100 mg/dL [facility] POINT OF CARE Blood 11/23/2023 7:52 PM CDT Jessica Grullon MD LABORATORY Performing Organization Address City/[facility] Co de Phone Number [facility] POINT OF [facility] [address] [place] [address], [place] * (ABNORMAL) POC GLUCOSE (11/23/2023 4:18 PM CDT) POC Glucose 156(H) 70 - 100 mg/dL [facility] POINT OF CARE Blood 11/23/2023 4:18 PM CDT Jessica Grullon MD LABORATORY Performing Organization Address City/[facility]/ZIP Co de Phone Number [facility] POINT OF CARE [address] [place] [address], [place] * (ABNORMAL) POC GLUCOSE (11/23/2023 11:13 AM CDT) POC Glucose 182(H) 70 - 100 mg/dL [facility] POINT OF CARE Blood 11/23/2023 11:1 3 AM CDT Jessica Grullon MD LABORATORY Performing Organization Address [facility]/ZIP Co de Phone Number [facility] - POINT OF CARE [address] [place] [address], * (ABNORMAL) PANEL BASIC METABOLIC (BMP) (11/23/2023 8:31 AM CDT) [facility] CO2 24 22 - 30 mmol/L [facility] LAB Glucose 192(H) 70 - 100 mg/dL [facility] BUN 20 6 - 20 mg/dL [facility] Creatinine 1.96(H) 0.70 - 1.25 mg/dL [facility] Calcium 8.5(L) 8.6 - 10.0 mg/dL [facility] Sodium 137 135 - 148 mmol/L [facility] Potassium 5.1 3.5 - 5.3 mmol/L [facility] Chloride 103 92 - 108 mmol/L [facility] eGFR (2020 CKD-EPI) 42(L) >=60 ml/min/1.7 3m2 [facility] [facility] Comment: The estimated glomerular filtration rate (eGFR) was calculated using the CKD-EPI 2020 creatinine equation, which does not include race as a factor. This equation is validated in individuals 18 years of age and older, and eGFR is normalized to a body surface area of 1.73m^2. AnGap 10 8 - 16 mmol/L [facility] Blood 11/23/2023 8:31 AM CDT 11/23/2023 9:12 AM CDT Zac Churchill MD LABORATORY [facility] [address] [address] * (ABNORMAL) CBC WITH PLATELET (11/23/2023 8:31 AM CDT) Pathologist [facility] WBC 13.36(H) 4.00 - 10.00 k/cmm [facility] RBC 3.57(L) 4.60 - 6.00 m/cmm [facility] Hgb 10.0(L) 13.1 - 17.5 g/dL [facility] Hematocrit 31.5(L) 40.0 - 51.0 % [facility] MCV 88.2 80.0 - 100.0 fL [facility] MCH 28.0 25.0 - 32.0 pg [facility] MCHC 31.7 31.0 - 36.0 g/dL [facility] RDW 14.4 11.5 - 14.5 % [facility] Plt 492(H) 150 - 400 k/cmm [facility] MPV 9.1 6.5 - 12.5 fL [facility] Blood 11/23/2023 8:31 AM CDT 11/23/2023 9:11 AM CDT Zac Churchill MD LABORATORY Performing Organization Address [facility] Co de Phone Number [facility] [place] [address] * (ABNORMAL) POC GLUCOSE (11/23/2023 6:43 AM CDT) POC Glucose 121(H) 70 - 100 mg/dL [facility] Blood 11/23/2023 6:43 AM CDT Jessica Grullon MD LABORATORY Performing Organization Address [facility] Co de Phone Number [facility] [address] [place] [address] * POC GLUCOSE (11/22/2023 8:28 PM CDT) POC Glucose 95 70 - 100 mg/dL [facility] Blood 11/22/2023 8:28 PM CDT Jessica Grullon MD LABORATORY Performing Organization Address City/[facility]/ZIP Co de Phone Number [facility] [address] [place] [address], * (ABNORMAL) POC GLUCOSE (11/22/2023 4:10 PM CDT) POC Glucose 176(H) 70 - 100 mg/dL [facility] Blood 11/22/2023 4:10 PM CDT Jessica Grullon MD LABORATORY Performing Organization Address [facility] Co de Phone Number [facility] [address] [place] [address], * (ABNORMAL) POC GLUCOSE (11/22/2023 11:21 AM CDT) Pathologist [facility] POC Glucose 201(H) 70 - 100 mg/dL [place] Blood 11/22/2023 11:2 1 AM CDT Jessica Grullon MD LABORATORY Performing Organization Address [facility] de Phone Number [facility] [address] [place] [address], * (ABNORMAL) CYSTATIN C (11/22/2023 9:23 AM CDT) [facility] Cystatin C 1.43(H) 0.61 - 0.95 mg/L [facility] eGFR by Cystatin C 51(L) >=60 ml/min/1.7 3m2 [facility] Comment: Estimated GFR calculated using the CKD-EPI Cystatin C (2012) equation. Stage ? Description ?eGFR Range ??1.......Normal or increased eGFR.......90 or Greater ??2.......Mildly decreased eGFR..........60-89 ??3.......Moderately decreased eGFR......30-59 ??4.......Severely decreased eGFR........15-29 ??5.......Kidney Failure.................Less than 15 Blood 11/22/2023 9:23 AM CDT 11/22/2023 2:05 PM CDT Zac Churchill MD LABORATORY Performing Organization Address [facility] Co de Phone Number [facility] [address] [address] * (ABNORMAL) PANEL BASIC METABOLIC (BMP) (11/22/2023 9:23 AM CDT) Sodium 136 135 - 148 mmol/L [facility] Potassium 5.1 3.5 - 5.3 mmol/L [facility] Chloride 102 92 - 108 mmol/L [facility] CO2 24 22 - 30 mmol/L [facility] AnGap 10 8 - 16 mmol/L [facility] Glucose 254(H) 70 - 100 mg/dL [facility] BUN 20 6 - 20 mg/dL [facility] Creatinine 2.00(H) 0.70 - 1.25 mg/dL [facility] Calcium 8.6 8.6 - 10.0 mg/dL [facility] eGFR (2020 CKD-EPI) 41(L) >=60 ml/min/1.7 3m2 [facility] Comment: The estimated glomerular filtration rate (eGFR) was calculated using the CKD-EPI 2020 creatinine equation, which does not include race as a factor. This equation is validated in individuals 18 years of age and older, and eGFR is normalized to a body surface area of 1.73m^2. Blood 11/22/2023 9:23 AM CDT 11/22/2023 10:28 AM CDT Zac Churchill MD LABORATORY Performing Organization Address [facility]/ZIP Co de Phone Number [facility] [address] [address] * (ABNORMAL) CBC WITH PLATELET (11/22/2023 9:23 AM CDT) WBC 12.35(H) 4.00 - 10.00 k/cmm [facility] RBC 3.47(L) 4.60 - 6.00 m/cmm [facility] Hgb 9.8(L) 13.1 - 17.5 g/dL [facility] Hematocrit 30.8(L) 40.0 - 51.0 % [facility] MCV 88.8 80.0 - 100.0 fL [facility] MCH 28.2 25.0 - 32.0 pg [facility] MCHC 31.8 31.0 - 36.0 g/dL [facility] RDW 14.5 11.5 - 14.5 % [facility] Plt 530(H) 150 - 400 k/cmm [facility] MPV 9.3 6.5 - 12.5 fL [facility] Blood 11/22/2023 9:23 AM CDT 11/22/2023 10:28 AM CDT Zac Churchill MD LABORATORY Performing Organization Address City/[facility]/ZIP Co de Phone Number [facility] [place] [address] * (ABNORMAL) POC GLUCOSE (11/22/2023 6:55 AM CDT) POC Glucose 136(H) 70 - 100 mg/dL [facility] Blood 11/22/2023 6:55 AM CDT Jessica Grullon MD LABORATORY Performing Organization Address City/[facility]/ZIP Co de Phone Number [facility] [address] [place], [place] [address], [place] * (ABNORMAL) POC GLUCOSE (11/21/2023 8:38 PM CDT) POC Glucose 139(H) 70 - 100 mg/dL [facility] Blood 11/21/2023 8:38 PM CDT Jessica Grullon MD LABORATORY [facility] [address] [place], [place] [id number], [place] * (ABNORMAL) POC GLUCOSE (11/21/2023 4:13 PM CDT) POC Glucose 141(H) 70 - 100 mg/dL [facility] POINT OF [facility] Blood 11/21/2023 4:13 PM CDT Jessica Grullon MD LABORATORY Performing Organization Address [facility] Co de Phone Number [place] [address] [place] [address], [place] * (ABNORMAL) POC GLUCOSE (11/21/2023 11:12 AM CDT) Pathologist [facility] POC Glucose 177(H) 70 - 100 mg/dL [facility] POINT [facility] Blood 11/21/2023 11:1 2 AM CDT Jessica Grullon MD LABORATORY Performing Organization Address [facility] Co de Phone Number [place] [address] [place] [address], [place] * (ABNORMAL) POC GLUCOSE (11/21/2023 6:08 AM CDT) Pathologist [facility] POC Glucose 131(H) 70 - 100 mg/dL [place] Blood 11/21/2023 6:08 AM CDT Jessica Grullon MD LABORATORY Performing Organization Address [facility] Co de Phone Number [place] [address] [place] [address], [place] * (ABNORMAL) PANEL BASIC METABOLIC (BMP) (11/21/2023 4:52 AM CDT) CO2 27 22 - 30 mmol/L [facility] Glucose 128(H) 70 - 100 mg/dL [facility] BUN 21(H) 6 - 20 mg/dL [facility] Creatinine 2.07(H) 0.70 - 1.25 mg/dL [facility] Calcium 8.4(L) 8.6 - 10.0 mg/dL [facility] Sodium 138 135 - 148 mmol/L [facility] Potassium 4.8 3.5 - 5.3 mmol/L [facility] Chloride 103 92 - 108 mmol/L [facility] eGFR (2020 CKD-EPI) 40(L) >=60 ml/min/1.7 3m2 [facility] Comment: The estimated glomerular filtration rate (eGFR) was calculated using the CKD-EPI 2020 creatinine equation, which does not include race as a factor. This equation is validated in individuals 18 years of age and older, and eGFR is normalized to a body surface area of 1.73m^2. AnGap 8 8 - 16 mmol/L [facility] Blood 11/21/2023 4:52 AM CDT 11/21/2023 5:27 AM CDT Zac Churchill MD LABORATORY Performing Organization Address City/[facility]/ZIP Co de Phone Number [facility] [address] [address] * (ABNORMAL) CBC WITH PLATELET (11/21/2023 4:52 AM CDT) WBC 11.48(H) 4.00 - 10.00 k/cmm [facility] RBC 3.21(L) 4.60 - 6.00 m/cmm [facility] Hgb 9.0(L) 13.1 - 17.5 g/dL [facility] Hematocrit 28.7(L) 40.0 - 51.0 % [facility] MCV 89.4 80.0 - 100.0 fL [facility] MCH 28.0 25.0 - 32.0 pg [facility] MCHC 31.4 31.0 - 36.0 g/dL [facility] RDW 14.6(H) 11.5 - 14.5 % [facility] Plt 510(H) 150 - 400 k/cmm [facility] MPV 9.1 6.5 - 12.5 fL [facility] Blood 11/21/2023 4:52 AM CDT 11/21/2023 5:27 AM CDT Zac Churchill MD LABORATORY [facility] [address] [place] [address] * (ABNORMAL) POC GLUCOSE (11/20/2023 9:13 PM CDT) POC Glucose 153(H) 70 - 100 mg/dL [facility] Blood 11/20/2023 9:13 PM CDT Jessica Grullon MD LABORATORY Performing Organization Address City/[facility]/ZIP Co de Phone Number [facility] [address] [place] [address], [place] * (ABNORMAL) POC GLUCOSE (11/20/2023 3:52 PM CDT) Pathologist [facility] POC Glucose 129(H) 70 - 100 mg/dL [facility] Blood 11/20/2023 3:52 PM CDT Jessica Grullon MD LABORATORY Performing Organization Address City/[facility] Co de Phone Number [facility] POINT OF [address] [address], [place] * (ABNORMAL) POC GLUCOSE (11/20/2023 11:16 AM CDT) Pathologist [facility] POC Glucose 165(H) 70 - 100 mg/dL [facility] Blood 11/20/2023 11:1 6 AM CDT Jessica Grullon MD LABORATORY Performing Organization Address City/[facility] Co de Phone Number [facility] [address] [place] [address], [place] * (ABNORMAL) PANEL BASIC METABOLIC (BMP) (11/20/2023 8:18 AM CDT) Sodium 140 135 - 148 mmol/L [facility] Potassium 4.9 3.5 - 5.3 mmol/L [facility] Chloride 105 92 - 108 mmol/L [facility] CO2 26 22 - 30 mmol/L [facility] AnGap 9 8 - 16 mmol/L [facility] Glucose 147(H) 70 - 100 mg/dL [facility] BUN 21(H) 6 - 20 mg/dL [facility] Creatinine 2.02(H) 0.70 - 1.25 mg/dL [facility] Calcium 8.4(L) 8.6 - 10.0 mg/dL [facility] eGFR (2020 CKD-EPI) 41(L) >=60 ml/min/1.7 3m2 [facility] Comment: The estimated glomerular filtration rate (eGFR) was calculated using the CKD-EPI 2020 creatinine equation, which does not include race as a factor. This equation is validated in individuals 18 years of age and older, and eGFR is normalized to a body surface area of 1.73m^2. Blood 11/20/2023 8:18 AM CDT 11/20/2023 8:40 AM CDT 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 APRN, CNP LABORATORY [facility] [address] [address] * (ABNORMAL) CBC WITH PLTS/AUTO DIFF (11/20/2023 8:18 AM CDT) WBC 10.90(H) 4.00 - 10.00 k/cmm [facility] RBC 3.17(L) 4.60 - 6.00 m/cmm [facility] Hgb 9.0(L) 13.1 - 17.5 g/dL [facility] Hematocrit 28.3(L) 40.0 - 51.0 % [facility] MCV 89.3 80.0 - 100.0 fL [facility] MCH 28.4 25.0 - 32.0 pg [facility] MCHC 31.8 31.0 - 36.0 g/dL [facility] RDW 14.3 11.5 - 14.5 % [facility] Plt 492(H) 150 - 400 k/cmm [facility] MPV 9.2 6.5 - 12.5 fL [facility] Automated Abs Neutrophil 6.51(H) 1.70 - 6.50 k/cmm [facility] Comment:Preliminary ANC, Fin al Result to Follow Abs Immature Granulocyte 0.57(H) 0.00 - 0.09 k/cmm [facility] Comment:The Immature Granulo cyte Absolute count contains metamyelocytes and myelocytes. Abs Neutrophil 6.51(H) 1.70 - 6.50 k/cmm [facility] Abs Lymphocyte 2.07 0.80 - 4.00 k/cmm [facility] Abs Monocyte 1.27(H) 0.20 - 1.00 k/cmm [facility] Abs Eosinophil 0.45 0.00 - 0.60 k/cmm [facility] Abs Basophil 0.03 0.00 - 0.20 k/cmm [facility] Blood 11/20/2023 8:18 AM CDT 11/20/2023 8:40 AM CDT 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 APRN, CNP LABORATORY Performing Organization Address [facility] Co de Phone Number [facility] [place] [address] * (ABNORMAL) POC GLUCOSE (11/20/2023 8:08 AM CDT) POC Glucose 133(H) 70 - 100 mg/dL [facility] Blood 11/20/2023 8:08 AM CDT Jessica Grullon MD LABORATORY Performing Organization Address [facility] Co de Phone Number [facility]ARE [address] [place] [address] * (ABNORMAL) POC GLUCOSE (11/20/2023 6:30 AM CDT) POC Glucose 153(H) 70 - 100 mg/dL [facility] Blood 11/20/2023 6:30 AM CDT Jessica Grullon MD LABORATORY Performing Organization Address City/[facility]/ZIP Co de Phone Number [facility] PO[facility]ARE [address] [place] [address] [place] * (ABNORMAL) POC GLUCOSE (11/19/2023 9:03 PM CDT) POC Glucose 148(H) 70 - 100 mg/dL [facility] POINT OF [facility] Blood 11/19/2023 9:03 PM CDT Jessica Grullon MD LABORATORY Performing Organization Address City/[facility] Co de Phone Number [facility] [address] [place] [address], [place] * (ABNORMAL) POC GLUCOSE (11/19/2023 3:55 PM CDT) POC Glucose 126(H) 70 - 100 mg/dL [facility] POINT [facility] Blood 11/19/2023 3:55 PM CDT Jessica Grullon MD LABORATORY Performing Organization Address City/[facility] Co de Phone Number [place] [address] [place] [address], [place] * (ABNORMAL) POC GLUCOSE (11/19/2023 12:03 PM CDT) POC Glucose 147(H) 70 - 100 mg/dL [place] Blood 11/19/2023 12:0 3 PM CDT Jessica Grullon MD LABORATORY Performing Organization Address City/[facility] Co de Phone Number [facility] [address] [place] [address], [place] * (ABNORMAL) POC GLUCOSE (11/19/2023 11:07 AM CDT) POC Glucose 159(H) 70 - 100 mg/dL [facility] POINT [facility] Blood 11/19/2023 11:0 7 AM CDT Jessica Grullon MD LABORATORY Performing Organization Address [facility] Co de Phone Number [facility] [address] [place] [address], * (ABNORMAL) POC GLUCOSE (11/19/2023 8:51 AM CDT) POC Glucose 185(H) 70 - 100 mg/dL [facility] Blood 11/19/2023 8:51 AM CDT Jessica Grullon MD LABORATORY Performing Organization Address [facility] Co de Phone Number [facility]ARE [address] [place] [address], [place] * (ABNORMAL) PANEL BASIC METABOLIC (BMP) (11/19/2023 7:58 AM CDT) CO2 24 22 - 30 mmol/L [facility] Glucose 221(H) 70 - 100 mg/dL [facility] BUN 25(H) 6 - 20 mg/dL [facility] Creatinine 2.19(H) 0.70 - 1.25 mg/dL [facility] Calcium 7.8(L) 8.6 - 10.0 mg/dL [facility] Sodium 138 135 - 148 mmol/L [facility] Potassium 4.7 3.5 - 5.3 mmol/L [facility] Chloride 104 92 - 108 mmol/L [facility] eGFR (2020 CKD-EPI) 37(L) >=60 ml/min/1.7 3m2 [facility] Comment: The estimated glomerular filtration rate (eGFR) was calculated using the CKD-EPI 2020 creatinine equation, which does not include race as a factor. This equation is validated in individuals 18 years of age and older, and eGFR is normalized to a body surface area of 1.73m^2. AnGap 10 8 - 16 mmol/L [facility] Blood 11/19/2023 7:58 AM CDT 11/19/2023 8:34 AM CDT 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 APRN, CNP LABORATORY Performing Organization Address [facility] Co de Phone Number [facility] [address] [address] * (ABNORMAL) CBC WITH PLTS/AUTO DIFF (11/19/2023 7:58 AM CDT) [facility] WBC 10.66(H) 4.00 - 10.00 k/cmm [facility] RBC 3.14(L) 4.60 - 6.00 m/cmm [facility] Hgb 9.0(L) 13.1 - 17.5 g/dL [facility] Hematocrit 27.7(L) 40.0 - 51.0 % [facility] MCV 88.2 80.0 - 100.0 fL [facility] MCH 28.7 25.0 - 32.0 pg [facility] MCHC 32.5 31.0 - 36.0 g/dL [facility] RDW 14.3 11.5 - 14.5 % [facility] Plt 482(H) 150 - 400 k/cmm [facility] MPV 9.2 6.5 - 12.5 fL [facility] Automated Abs Neutrophil 6.41 1.70 - 6.50 k/cmm [facility] Comment:Preliminary ANC, Fin al Result to Follow Polychromasia Slight [facility] Abs Neutrophil 8.10(H) 1.70 - 6.50 k/cmm [facility] Abs Lymphocyte 1.07 0.80 - 4.00 k/cmm [facility] Abs Monocyte 0.85 0.20 - 1.00 k/cmm [facility] Abs Eosinophil 0.32 0.00 - 0.60 k/cmm [facility] Abs Basophil 0.11 0.00 - 0.20 k/cmm [facility] Abs Myelocyte 0.21(H) 0.00 - 0.00 k/cmm [facility] Blood 11/19/2023 7:58 AM CDT 11/19/2023 8:34 AM CDT 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 APRN, CNP LABORATORY [facility] [address] [address] * (ABNORMAL) POC GLUCOSE (11/19/2023 6:37 AM CDT) Pathologist [facility] POC Glucose 212(H) 70 - 100 mg/dL [facility] - POINT OF CARE Blood 11/19/2023 6:37 AM CDT Jessica Grullon MD LABORATORY Performing Organization Address City/[facility]/ZIP Co de Phone Number [facility] POINT OF CARE [address] [place] [address], [place] * POC GLUCOSE (11/18/2023 8:54 PM CDT) POC Glucose 99 70 - 100 mg/dL [facility] POINT OF CARE Blood 11/18/2023 8:54 PM CDT Jessica Grullon MD LABORATORY Performing Organization Address City/[facility]/ZIP Co de Phone Number [place] [address] [place] [address], [place] * (ABNORMAL) POC GLUCOSE (11/18/2023 8:20 PM CDT) POC Glucose 69(L) 70 - 100 mg/dL [facility] POINT OF [facility] Blood 11/18/2023 8:20 PM CDT Jessica Grullon MD LABORATORY Performing Organization Address City/[facility] Co de Phone Number [facility] POINT [facility] [address] [place] [address], [place] * (ABNORMAL) POC GLUCOSE (11/18/2023 4:37 PM CDT) POC Glucose 154(H) 70 - 100 mg/dL [facility] POINT OF CARE Blood 11/18/2023 4:37 PM CDT Jessica Grullon MD LABORATORY Performing Organization Address City/[facility]/ZIP Co de Phone Number [facility] POINT OF CARE [address] [place] [address], [place] * (ABNORMAL) POC GLUCOSE (11/18/2023 11:03 AM CDT) Pathologist [facility] POC Glucose 158(H) 70 - 100 mg/dL [facility] - POINT OF CARE Blood 11/18/2023 11:0 3 AM CDT Jessica Grullon MD LABORATORY Performing Organization Address City/[facility]/ZIP Co de Phone Number [facility] POINT OF CARE [address] [place] [address], * (ABNORMAL) PANEL BASIC METABOLIC (BMP) (11/18/2023 9:02 AM CDT) [facility] CO2 24 22 - 30 mmol/L [facility] Glucose 180(H) 70 - 100 mg/dL [facility] BUN 27(H) 6 - 20 mg/dL [facility] Creatinine 2.17(H) 0.70 - 1.25 mg/dL [facility] Calcium 8.2(L) 8.6 - 10.0 mg/dL [facility] Sodium 137 135 - 148 mmol/L [facility] Potassium 4.5 3.5 - 5.3 mmol/L [facility] Chloride 104 92 - 108 mmol/L [facility] eGFR (2020 CKD-EPI) 37(L) >=60 ml/min/1.7 3m2 [facility] Comment: The estimated glomerular filtration rate (eGFR) was calculated using the CKD-EPI 2020 creatinine equation, which does not include race as a factor. This equation is validated in individuals 18 years of age and older, and eGFR is normalized to a body surface area of 1.73m^2. AnGap 9 8 - 16 mmol/L [facility] Blood 11/18/2023 9:02 AM CDT 11/18/2023 9:21 AM CDT 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 APRN, CNP LABORATORY [facility] [address] [place] [address] * (ABNORMAL) CBC WITH PLTS/AUTO DIFF (11/18/2023 9:02 AM CDT) WBC 10.61(H) 4.00 - 10.00 k/cmm [facility] RBC 3.36(L) 4.60 - 6.00 m/cmm [facility] Hgb 9.4(L) 13.1 - 17.5 g/dL [facility] Hematocrit 29.5(L) 40.0 - 51.0 % [facility] MCV 87.8 80.0 - 100.0 fL [facility] MCH 28.0 25.0 - 32.0 pg [facility] MCHC 31.9 31.0 - 36.0 g/dL [facility] RDW 14.2 11.5 - 14.5 % [facility] Plt 495(H) 150 - 400 k/cmm [facility] MPV 9.2 6.5 - 12.5 fL [facility] Automated Abs Neutrophil 6.34 1.70 - 6.50 k/cmm [facility] Comment:Preliminary ANC, Fin al Result to Follow NUC RBC 1.0(H) 0.0 - 0.0 /100WBC [facility] Polychromasia Slight [facility] Abs Neutrophil 7.32(H) 1.70 - 6.50 k/cmm [facility] Abs Lymphocyte 2.23 0.80 - 4.00 k/cmm [facility] Abs Monocyte 0.85 0.20 - 1.00 k/cmm [facility] Abs Eosinophil 0.21 0.00 - 0.60 k/cmm [facility] Blood 11/18/2023 9:02 AM CDT 11/18/2023 9:21 AM CDT 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 APRN, CNP LABORATORY Performing Organization Address City/State/[facility] Co de Phone Number [facility] [address] [address] * (ABNORMAL) POC GLUCOSE (11/18/2023 6:21 AM CDT) POC Glucose 194(H) 70 - 100 mg/dL [facility] Blood 11/18/2023 6:21 AM CDT Jessica Grullon MD LABORATORY [facility] POINT OF CARE [address] [place] [address], [place] * (ABNORMAL) POC GLUCOSE (11/17/2023 8:19 PM CDT) [facility] POC Glucose 143(H) 70 - 100 mg/dL [facility] POINT OF CARE Blood 11/17/2023 8:19 PM CDT Jessica Grullon MD LABORATORY Performing Organization Address [facility] Co de Phone Number [facility] POINT OF CARE [address] [place] [address], [place] * (ABNORMAL) POC GLUCOSE (11/17/2023 4:40 PM CDT) [facility] POC Glucose 235(H) 70 - 100 mg/dL [facility] POINT OF [facility] Blood 11/17/2023 4:40 PM CDT Jessica Grullon MD LABORATORY Performing Organization Address [facility] de Phone Number [facility] POINT OF [facility] [address] [place] [address], [place] * (ABNORMAL) CBC WITH PLTS/AUTO DIFF (11/17/2023 2:35 PM CDT) [facility] WBC 11.70(H) 4.00 - 10.00 k/cmm [facility] RBC 3.37(L) 4.60 - 6.00 m/cmm [facility] Hgb 9.6(L) 13.1 - 17.5 g/dL [facility] Hematocrit 29.6(L) 40.0 - 51.0 % [facility] MCV 87.8 80.0 - 100.0 fL [facility] MCH 28.5 25.0 - 32.0 pg [facility] MCHC 32.4 31.0 - 36.0 g/dL [facility] RDW 14.2 11.5 - 14.5 % [facility] Plt 466(H) 150 - 400 k/cmm [facility] MPV 9.3 6.5 - 12.5 fL [facility] Automated Abs Neutrophil 7.44(H) 1.70 - 6.50 k/cmm [facility] Comment:Preliminary ANC, Fin al Result to Follow Abs Immature Granulocyte 0.52(H) 0.00 - 0.09 k/cmm [facility] Comment:The Immature Granulo cyte Absolute count contains metamyelocytes and myelocytes. Abs Neutrophil 7.44(H) 1.70 - 6.50 k/cmm [facility] Abs Lymphocyte 1.96 0.80 - 4.00 k/cmm [facility] Abs Monocyte 1.45(H) 0.20 - 1.00 k/cmm [facility] Abs Eosinophil 0.27 0.00 - 0.60 k/cmm [facility] Abs Basophil 0.06 0.00 - 0.20 k/cmm [facility] Polychromasia Slight [facility] Blood 11/17/2023 2:35 PM CDT 11/17/2023 2:57 PM CDT Scar Leyva MD LABORATORY [facility] [place] [address] * (ABNORMAL) PANEL BASIC METABOLIC (BMP) (11/17/2023 2:35 PM CDT) CO2 21(L) 22 - 30 mmol/L [facility] Glucose 252(H) 70 - 100 mg/dL [facility] BUN 30(H) 6 - 20 mg/dL [facility] Creatinine 2.27(H) 0.70 - 1.25 mg/dL [facility] Calcium 8.2(L) 8.6 - 10.0 mg/dL [facility] Sodium 137 135 - 148 mmol/L [facility] Potassium 4.3 3.5 - 5.3 mmol/L [facility] Chloride 104 92 - 108 mmol/L [facility] eGFR (2020 CKD-EPI) 35(L) >=60 ml/min/1.7 3m2 [facility] Comment: The estimated glomerular filtration rate (eGFR) was calculated using the CKD-EPI 2020 creatinine equation, which does not include race as a factor. This equation is validated in individuals 18 years of age and older, and eGFR is normalized to a body surface area of 1.73m^2. AnGap 12 8 - 16 mmol/L [facility] Blood 11/17/2023 2:35 PM CDT 11/17/2023 2:57 PM CDT Scar Leyva MD LABORATORY Performing Organization Address [facility] Co de Phone Number [address] [address] * ANTI XA ASSAY LMW HEPARIN (11/17/2023 11:47 AM CDT) Anti XA LMW <0.04 IU/mL [facility] Comment: Anti Xa Assay LMW Heparin Therapeutic Ranges: 0.4-1.1 IU/mL for twice daily 1.0-2.0 IU/mL for once daily Blood 11/17/2023 11:4 7 AM CDT 11/17/2023 12:01 PM CDT Zac Churchill MD LABORATORY Performing Organization Address [facility] Co de Phone Number [address] [address] * (ABNORMAL) POC GLUCOSE (11/17/2023 11:25 AM CDT) POC Glucose 190(H) 70 - 100 mg/dL [facility] POINT [facility] CARE Blood 11/17/2023 11:2 5 AM CDT Jessica Grullon MD LABORATORY [facility] POINT OF CARE [address] [place] [phone], * XR FOOT LEFT 3 V AP/OBL/LAT* [...] POC Glucose 176(H) 70 - 100 mg/dL [facility] POINT [facility] CARE Blood 11/17/2023 10:0 1 AM CDT Jessica Grullon MD LABORATORY Performing Organization Address City/State/[facility] Co de Phone Number [facility] POINT OF CARE [address] [place] [address], * (ABNORMAL) TISSUE CULTURE:INCLUDES GRAM STAIN (11/17/2023 9:35 AM CDT) Final Report Positive Culture Previous positive called. Rare METHICILLIN RESISTANT Staphylococcus aureus (MRSA) isolated. 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 One colony Staphylococcus lugdunensis isolated. (POS) [facility] Organism METHICILLIN RESISTANT STAPHYLOCOCCUS AUREUS (MRSA)(POS) [facility] Organism STAPHYLOCOCCUS LUGDUNENSIS(POS) [facility] Gram Stain Report Few WBC's seen. No organisms seen. Gram stain electronically reported to and acknowledged by: Che Palomo MD for Podiatric Surgery on 11/17/2023 11:56:22 by Silver Luna MLS [facility] Tissue TOE STRUCTURE / Unknown 11/17/2023 [...] Vancomycin VITEK JORDY <=0.5: Sensitive Che Palomo [facility] MICROBIOLOGY [facility] [address] [place] [address] * FUNGUS CULTURE:INCLUDES SUHAS (11/17/2023 9:35 AM CDT) Final Report No fungus isolated. [facility] SUHAS Prep No fungal elements seen. [facility] Tissue TOE STRUCTURE / Unknown 11/17/2023 9:35 AM CDT Che Palomo [facility] MICROBIOLOGY Performing Organization Address [facility] Co de Phone Number [facility] [address] [address] * ANAEROBE CULTURE (11/17/2023 9:35 AM CDT) Final Report No anaerobes isolated. [facility] Tissue TOE STRUCTURE / Unknown 11/17/2023 9:35 AM CDT Che Palomo [facility] MICROBIOLOGY Performing Organization Address [facility] Co de Phone Number [facility] [address] [address] * AFB CULTURE:INCLUDES AFB SMEAR (11/17/2023 9:35 AM CDT) Final Report No acid fast bacilli isolated. [facility] Acid Fast Stain No acid fast bacilli seen. [facility] Tissue TOE STRUCTURE / Unknown 11/17/2023 9:35 AM CDT Che Palomo [facility] MICROBIOLOGY Performing Organization Address [facility] de Phone Number [facility] [address] [address] * M TUBERCULOSIS AMPLIFICATION (11/17/2023 9:32 AM CDT) Final Report M. tuberculosis complex DNA not detected. [facility] Tissue TOE STRUCTURE / Unknown 11/17/2023 9:32 AM CDT 11/18/2023 9:56 AM CDT Comment:1: Left hallux soft tissue dirty Narrative [facility] - 11/18/2023 2:41 PM CDT This assay uses PCR nucleic acid amplification to detect Mycobacterium tuberculosis complex DNA. ??This test was developed and its performance characteristics determined by [facility]. ??It has not been cleared or approved by the U.S. Food and Drug Administration. ??FDA does not require this test to go through premarket FDA review. ??This test is used for clinical purposes. ??It should not be regarded as investigational or for research. ??[facility] Clinical Laboratory is certified under the Clinical Laboratory Improvement Amendments of 1988 (CLIA) as qualified to perform high complexity clinical laboratory testing. Che Palomo [facility] MICROBIOLOGY [facility] [address] [place] [address] * (ABNORMAL) TISSUE CULTURE:INCLUDES GRAM STAIN (11/17/2023 9:32 AM CDT) Final Report Positive Culture Rare METHICILLIN RESISTANT Staphylococcus aureus (MRSA) isolated. 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 Rare Group B beta hemolytic Streptococcus isolated. Pseudomonas aeruginosa isolated in broth only. Results electronically reported to and acknowledged by: Paula Vazquez MD, in Surgery [place], at ?? 11/23/2023 07:49:11 by Pam Alvarado MLS. (POS) [facility] Organism METHICILLIN RESISTANT STAPHYLOCOCCUS AUREUS (MRSA)(POS) [facility] Organism GROUP B BETA HEMOLYTIC STREPTOCOCCUS(POS) [facility] Organism PSEUDOMONAS AERUGINOSA(POS) [facility] Gram Stain Report Positive Gram stain Gram stain electronically reported to and acknowledged by: Che Zheng MD for Podiatric Surgery on 11/17/2023 11:55:10 by Silver Luna MLS Rare WBC's seen. Rare gram positive cocci clusters. (POS) [facility] Tissue TOE STRUCTURE / Unknown 11/17/2023 [...] Beth DP LAB MICROBIOLOGY Performing Organization Address [facility] Co de Phone Number [facility] [address] [address] * FUNGUS CULTURE:INCLUDES SUHAS (11/17/2023 9:32 AM CDT) Final Report No fungus isolated. [facility] SUHAS Prep No fungal elements seen. [facility] Tissue TOE STRUCTURE / Unknown 11/17/2023 9:32 AM CDT Story[employer] [facility] MICROBIOLOGY Performing Organization Address [facility] Co de Phone Number [facility] [address] [address] * (ABNORMAL) ANAEROBE CULTURE (11/17/2023 9:32 AM CDT) Final Report Positive Culture Rare Veillonella parvula group isolated. Rare Actinomyces europaeus isolated. (POS) [facility] Organism VEILLONELLA PARVULA GROUP(POS) [facility] Organism ACTINOMYCES EUROPAEUS(POS) [facility] Tissue TOE STRUCTURE / Unknown 11/17/2023 9:32 AM CDT [employer] DP LAB MICROBIOLOGY Performing Organization Address [facility] Co de Phone Number [facility] [address] [address] * AFB CULTURE:INCLUDES AFB SMEAR (11/17/2023 9:32 AM CDT) Final Report No acid fast bacilli isolated. [facility] Acid Fast Stain No acid fast bacilli seen. [facility] Tissue TOE STRUCTURE / Unknown 11/17/2023 9:32 AM CDT Che Palomo DPM LAB MICROBIOLOGY [facility] [address] [place] [address] * SURGICAL PATHOLOGY (11/17/2023 9:31 AM CDT) SURG PATH FINAL ?Surgical Pathology Report Collection Date: ?11/17/2023 09:31 CDT ?Ordering Physician: ? CHE PALOMO Received Date: ?11/17/2023 09:49 CDT ?Accession Number: ? [id number] ? Surgical Pathology Final Report Specimen Type: [...] underlying soft tissue with moderate osseous softening. Grapple Operator sections are submitted on decalcification as [...] Rodriguez M.D. Attending Pathologist. DDB/DDB 11.17.2023 10:26 [facility] AP Specimen FOOT STRUCTURE / Unknown 11/17/2023 9:31 AM CDT Comment:OR: Routine gross an d microscopic examination Tissue: Left Hallux Site: left foot Additional clinical information: Che Palomo DPM LAB PATHOLOGY Performing Organization Address [facility]/ZIP Co de Phone Number [facility] [place] [address] * (ABNORMAL) POC GLUCOSE (11/17/2023 9:14 AM CDT) POC Glucose 169(H) 70 - 100 mg/dL [facility] PO[facility] Blood 11/17/2023 9:14 AM CDT Jessica Grullon MD LABORATORY Performing Organization Address City/[facility]/ZIP Co de Phone Number [facility] CARE [address] [place] [address], * ULT ARTERIAL LOWER EXTREMITY LEFT (11/17/2023 [...] POC Glucose 205(H) 70 - 100 mg/dL [facility] POINT OF CARE Blood 11/17/2023 6:07 AM CDT Jessica Grullon MD LABORATORY Performing Organization Address City/[facility] Co de Phone Number [facility] POINT OF CARE [address] [place] [address], [place] * (ABNORMAL) POC GLUCOSE (11/16/2023 8:46 PM CDT) POC Glucose 141(H) 70 - 100 mg/dL [facility] POINT OF [facility] Blood 11/16/2023 8:46 PM CDT Jessica Grullon MD LABORATORY Performing Organization Address [facility] Co de Phone Number [facility] POINT OF CARE [address] [place] [address], [place] * XR FOOT LEFT 3 V [...] POC Glucose 148(H) 70 - 100 mg/dL [facility] CARE Blood 11/16/2023 4:14 PM CDT Jessica Grullon MD LABORATORY [facility] POINT OF CARE [address] [place] [address], * (ABNORMAL) POC GLUCOSE (11/16/2023 10:55 AM CDT) Pathologist [facility] POC Glucose 203(H) 70 - 100 mg/dL [facility] POINT OF CARE Blood 11/16/2023 10:5 5 AM CDT Jessica Grullon MD LABORATORY Performing Organization Address [facility] Co de Phone Number [facility] POINT OF [address] [address], * (ABNORMAL) CBC WITH PLATELET (11/16/2023 8:45 AM CDT) [facility] WBC 13.08(H) 4.00 - 10.00 k/cmm [facility] RBC 3.38(L) 4.60 - 6.00 m/cmm [facility] Hgb 9.6(L) 13.1 - 17.5 g/dL [facility] Hematocrit 28.9(L) 40.0 - 51.0 % [facility] MCV 85.5 80.0 - 100.0 fL [facility] MCH 28.4 25.0 - 32.0 pg [facility] MCHC 33.2 31.0 - 36.0 g/dL [facility] RDW 13.4 11.5 - 14.5 % [facility] Plt 475(H) 150 - 400 k/cmm [facility] MPV 9.5 6.5 - 12.5 fL [facility] Blood 11/16/2023 8:45 AM CDT 11/16/2023 8:58 AM CDT 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 APRN, CNP LABORATORY Performing Organization Address City/[facility]/ZIP Co de Phone Number [facility] [address] [place] [phone] * (ABNORMAL) PANEL BASIC METABOLIC (BMP) (11/16/2023 8:45 AM CDT) Pathologist [facility] CO2 21(L) 22 - 30 mmol/L [facility] Glucose 261(H) 70 - 100 mg/dL [facility] BUN 35(H) 6 - 20 mg/dL [facility] Creatinine 2.67(H) 0.70 - 1.25 mg/dL [facility] Calcium 8.3(L) 8.6 - 10.0 mg/dL [facility] Sodium 139 135 - 148 mmol/L [facility] Potassium 4.4 3.5 - 5.3 mmol/L [facility] Chloride 106 92 - 108 mmol/L [facility] eGFR (2020 CKD-EPI) 29(L) >=60 ml/min/1.7 3m2 [facility] Comment: The estimated glomerular filtration rate (eGFR) was calculated using the CKD-EPI 2020 creatinine equation, which does not include race as a factor. This equation is validated in individuals 18 years of age and older, and eGFR is normalized to a body surface area of 1.73m^2. AnGap 12 8 - 16 mmol/L [facility] Blood 11/16/2023 8:45 AM CDT 11/16/2023 8:57 AM CDT 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 APRN, CNP LABORATORY [facility] [place] [address] * (ABNORMAL) POC GLUCOSE (11/16/2023 7:37 AM CDT) POC Glucose 180(H) 70 - 100 mg/dL [facility] CARE Blood 11/16/2023 7:37 AM CDT Jessica Grullon MD LABORATORY [facility] POINT OF CARE [address] [place] [address] * (ABNORMAL) POC GLUCOSE (11/15/2023 9:23 PM CDT) POC Glucose 144(H) 70 - 100 mg/dL [facility] - POINT OF CARE Blood 11/15/2023 9:23 PM CDT Jessica Grullon MD LABORATORY Performing Organization Address City/[facility]/ZIP Co de Phone Number [place] [address] [place] [address], * (ABNORMAL) POC GLUCOSE (11/15/2023 4:18 PM CDT) POC Glucose 159(H) 70 - 100 mg/dL [facility] POINT OF CARE Blood 11/15/2023 4:18 PM CDT Jessica Grullon MD LABORATORY Performing Organization Address [facility] Co de Phone Number [place] [address] [place] [id number], * (ABNORMAL) POC GLUCOSE (11/15/2023 11:19 AM CDT) POC Glucose 221(H) 70 - 100 mg/dL [facility] POINT [facility] Blood 11/15/2023 11:1 9 AM CDT Jessica Grullon MD LABORATORY Performing Organization Address [facility] Co de Phone Number [place] [address] [place] [id number], [place] * (ABNORMAL) PANEL BASIC METABOLIC (BMP) (11/15/2023 7:39 AM CDT) CO2 21(L) 22 - 30 mmol/L [facility] Glucose 176(H) 70 - 100 mg/dL [facility] BUN 38(H) 6 - 20 mg/dL [facility] Creatinine 2.86(H) 0.70 - 1.25 mg/dL [facility] Calcium 7.6(L) 8.6 - 10.0 mg/dL [facility] Sodium 136 135 - 148 mmol/L [facility] [facility] Potassium 4.2 3.5 - 5.3 mmol/L [facility] Chloride 102 92 - 108 mmol/L [facility] eGFR (2020 CKD-EPI) 27(L) >=60 ml/min/1.7 3m2 [facility] Comment: The estimated glomerular filtration rate (eGFR) was calculated using the CKD-EPI 2020 creatinine equation, which does not include race as a factor. This equation is validated in individuals 18 years of age and older, and eGFR is normalized to a body surface area of 1.73m^2. AnGap 13 8 - 16 mmol/L [facility] Blood 11/15/2023 7:39 AM CDT 11/15/2023 7:58 AM CDT Shani Shaw MD LABORATORY Performing Organization Address [facility] Co de Phone Number [facility] [address] [address] * (ABNORMAL) CREATININE, SERUM (11/15/2023 7:39 AM CDT) Creatinine 2.83(H) 0.70 - 1.25 mg/dL [facility] eGFR (2020 CKD-EPI) 27(L) >=60 ml/min/1.7 3m2 [facility] Comment: The estimated glomerular filtration rate (eGFR) was calculated using the CKD-EPI 2020 creatinine equation, which does not include race as a factor. This equation is validated in individuals 18 years of age and older, and eGFR is normalized to a body surface area of 1.73m^2. Blood 11/15/2023 7:39 AM CDT 11/15/2023 7:58 AM CDT Shani Shaw MD LABORATORY Performing Organization Address City/[facility] Co de Phone Number [facility] [address] [address] * HEPATITIS C ANTIBODY WITH CONDITIONAL PCR (11/15/2023 7:39 AM CDT) Hep C Lilly Nonreactive Nonreactive [facility] Comment:Performance characte ristics have not been established with this test on patients less than 10 years of age. Blood 11/15/2023 7:39 AM CDT 11/15/2023 7:58 AM CDT Zac Churchill MD LABORATORY [facility] [address] [address] * HIV COMBO (11/15/2023 7:39 AM CDT) HIV Antigen-Antibody Nonreactive Nonreactive [facility] Comment:Performance characte ristics have not been established with this test on patients less than 2 years of age. Blood 11/15/2023 7:39 AM CDT 11/15/2023 7:58 AM CDT Zac Churchill MD LABORATORY Performing Organization Address City/[facility] Co de Phone Number [facility] [address] [address] * (ABNORMAL) POC GLUCOSE (11/15/2023 6:16 AM CDT) POC Glucose 154(H) 70 - 100 mg/dL [place] Blood 11/15/2023 6:16 AM CDT Jessica Grullon MD LABORATORY Performing Organization Address City/[facility]/[place] [address], * (ABNORMAL) POC GLUCOSE (11/14/2023 8:34 PM CDT) POC Glucose 159(H) 70 - 100 mg/dL [place] Blood 11/14/2023 8:34 PM CDT [place] [address], * (ABNORMAL) POC GLUCOSE (11/14/2023 4:36 PM CDT) POC Glucose 182(H) 70 - 100 mg/dL [facility] Blood 11/14/2023 4:36 PM CDT Jessica Grullon MD LABORATORY [facility] [address] [place] [address], * (ABNORMAL) PROTEIN TO CREAT RATIO,URINE (11/14/2023 9:58 AM CDT) TPU 22(H) 0 - 11 mg/dL [facility] Creat Urine 89 30 - 125 mg/dL [facility] Protein to Creat Ratio, Ur 0.25(H) 0.00 - 0.06 mg/mg [facility] Urine 11/14/2023 9:58 AM CDT 11/14/2023 10:06 AM CDT Zac Churchill MD LABORATORY Performing Organization Address City/[facility]/ZIP Co de Phone Number [facility] [place] [address] * (ABNORMAL) URINALYSIS,TOTAL (11/14/2023 9:58 AM CDT) Color YELLOW YELLOW [facility] Appearance CLEAR CLEAR [facility] Urine Glucose 500(A) NEGATIVE mg/dL [facility] Bili UA NEGATIVE NEGATIVE [facility] Ketones NEGATIVE NEGATIVE [facility] Specific [place] 1.012 1.003 - 1.030 [facility] Blood Ur NEGATIVE Neg-Trace [facility] PH Urine 5.5 5.0 - 7.0 [facility] Protein Ur TRACE Neg-Trace [facility] Urobilinogen NORMAL NORMAL EU/dL [facility] Nitrite Ur NEGATIVE NEGATIVE [facility] Leuk Est NEGATIVE Neg-Trace [facility] WBC Ur 0-5 0 - 5 perHPF [facility] RBC Ur 0-3 0 - 3 perHPF [facility] Mucus 1+ perLPF [facility] Urinalysis Performed at: [facility] Urine 11/14/2023 9:58 AM CDT 11/14/2023 10:06 AM CDT Zac Churchill MD LABORATORY Performing Organization Address City/[facility]/ZIP Co de Phone Number [facility] [place] [address] * (ABNORMAL) POC GLUCOSE (11/14/2023 6:14 AM CDT) [facility] POC Glucose 171(H) 70 - 100 mg/dL [facility] Blood 11/14/2023 6:14 AM CDT Jessica Grullon MD LABORATORY Performing Organization Address City/[facility]/ZIP Co de Phone Number [facility] [address] [place] [address] * VANCOMYCIN LEVEL (11/14/2023 5:30 AM CDT) [facility] Vancomycin 19.9 mcg/mL [facility] Comment:Expected Range (Trou gh): 10-20 mcg/ml Blood 11/14/2023 5:30 AM CDT 11/14/2023 5:56 AM CDT Zac Churchill MD LABORATORY Performing Organization Address [facility] Co de Phone Number [facility] [place] [address] * (ABNORMAL) CYSTATIN C (11/14/2023 5:30 AM CDT) [facility] Cystatin C 1.78(H) 0.61 - 0.95 mg/L [facility] eGFR by Cystatin C 38(L) >=60 ml/min/1.7 3m2 [facility] Comment: Estimated GFR calculated using the CKD-EPI Cystatin C (2012) equation. Stage ? Description ?eGFR Range ??1.......Normal or increased eGFR.......90 or Greater ??2.......Mildly decreased eGFR..........60-89 ??3.......Moderately decreased eGFR......30-59 ??4.......Severely decreased eGFR........15-29 ??5.......Kidney Failure.................Less than 15 Blood 11/14/2023 5:30 AM CDT 11/14/2023 5:56 AM CDT Zac Churchill MD LABORATORY Performing Organization Address [facility] Co de Phone Number [facility] [address] [address] * PHOSPHORUS (11/14/2023 5:30 AM CDT) Phosphorus 4.3 2.5 - 4.5 mg/dL [facility] Blood 11/14/2023 5:30 AM CDT 11/14/2023 5:56 AM CDT aZc Churchill MD LABORATORY Performing Organization Address [facility] de Phone Number [facility] [address] [address] * (ABNORMAL) PANEL BASIC METABOLIC (BMP) (11/14/2023 5:30 AM CDT) Sodium 136 135 - 148 mmol/L [facility] Potassium 4.1 3.5 - 5.3 mmol/L [facility] Chloride 103 92 - 108 mmol/L [facility] CO2 24 22 - 30 mmol/L [facility] AnGap 9 8 - 16 mmol/L [facility] Glucose 194(H) 70 - 100 mg/dL [facility] BUN 40(H) 6 - 20 mg/dL [facility] Creatinine 3.21(H) 0.70 - 1.25 mg/dL [facility] Calcium 8.2(L) 8.6 - 10.0 mg/dL [facility] eGFR (2020 CKD-EPI) 23(L) >=60 ml/min/1.7 3m2 [facility] Comment: The estimated glomerular filtration rate (eGFR) was calculated using the CKD-EPI 2020 creatinine equation, which does not include race as a factor. This equation is validated in individuals 18 years of age and older, and eGFR is normalized to a body surface area of 1.73m^2. Blood 11/14/2023 5:30 AM CDT 11/14/2023 5:56 AM CDT Zac Churchill MD LABORATORY Performing Organization Address [facility] de Phone Number [address] [address] * MAGNESIUM (11/14/2023 5:30 AM CDT) Magnesium 2.4 1.6 - 2.6 mg/dL [facility] Blood 11/14/2023 5:30 AM CDT 11/14/2023 5:56 AM CDT Zac Churchill MD LABORATORY Performing Organization Address [facility] de Phone Number [address] [address] * (ABNORMAL) CBC WITH PLATELET (11/14/2023 5:30 AM CDT) WBC 11.96(H) 4.00 - 10.00 k/cmm [facility] RBC 3.21(L) 4.60 - 6.00 m/cmm [facility] Hgb 9.1(L) 13.1 - 17.5 g/dL [facility] Hematocrit 28.5(L) 40.0 - 51.0 % [facility] MCV 88.8 80.0 - 100.0 fL [facility] MCH 28.3 25.0 - 32.0 pg [facility] MCHC 31.9 31.0 - 36.0 g/dL [facility] RDW 13.4 11.5 - 14.5 % [facility] Plt 372 150 - 400 k/cmm [facility] MPV 9.8 6.5 - 12.5 fL [facility] Blood 11/14/2023 5:30 AM CDT 11/14/2023 5:54 AM CDT Zac Churchill MD LABORATORY [facility] [address] [place] [phone] * (ABNORMAL) POC GLUCOSE (11/13/2023 9:00 PM CDT) POC Glucose 206(H) 70 - 100 mg/dL [facility] Blood 11/13/2023 9:00 PM CDT Jessica Grullon MD LABORATORY [facility] [address] [place] [address], * (ABNORMAL) POC GLUCOSE (11/13/2023 4:44 PM CDT) POC Glucose 181(H) 70 - 100 mg/dL [facility] Blood 11/13/2023 4:44 PM CDT Jessica Grullon MD LABORATORY Performing Organization Address City/[facility]/ZIP Co de Phone Number [facility] POINT OF [address] [address], [place] * (ABNORMAL) POC GLUCOSE (11/13/2023 10:56 AM CDT) POC Glucose 170(H) 70 - 100 mg/dL [facility] Blood 11/13/2023 10:5 6 AM CDT Jessica Grullon MD LABORATORY [facility] [address] [place] [address], [place] * URINE CHLAMYDIA AND NEISSERIAE GONORRHOEAE AMPLIFICATION (11/13/2023 10:45 AM CDT) Chlamydia Amplification - Urine Negative Negative [facility] Comment:Test performed by tr anscription mediated amplification and is FDA approved for genital and urine specimens. N. Gonorrhea Amplification - Urine Negative Negative [facility] Comment:Test performed by tr anscription mediated amplification and is FDA approved for genital and urine specimens. Urine 11/13/2023 10:4 5 AM CDT 11/13/2023 3:03 PM CDT Narrative [facility] - 11/15/2023 12:29 PM CDT For Urines, use first void. Zac Churchill MD LABORATORY Performing Organization Address City/[facility]/ZIP Co de Phone Number [address] [address] * HEPATITIS B SURFACE ANTIGEN (11/13/2023 10:20 AM CDT) Pathologist [facility] HBV Surface Ag Nonreactive Nonreactive [facility] Comment: Testing performed at: [address] [address] Blood 11/13/2023 10:2 0 AM CDT 11/13/2023 10:27 AM CDT Zac Churchill MD LABORATORY Performing Organization Address [facility] Co de Phone Number [address] [address] * HEPATITIS B SURFACE ANTIBODY (11/13/2023 10:20 AM CDT) Pathologist [facility] HBsAb Quant <3.31 mIU/ml [facility] Comment:The Hepatitis B Surf gabriella Antibody quantitation is less than 8.00 mIU/mL. There is no evidence of an antibody response to a hepatitis B vaccination or recovery from a hepatitis B infection. This patient is presumed non-immune to hepatitis B. HBsAb Interpretation Nonreactive [facility] Blood 11/13/2023 10:2 0 AM CDT 11/13/2023 10:27 AM CDT Zac Churchill MD LABORATORY Performing Organization Address City/[facility] Co de Phone Number [address] [address] * (ABNORMAL) POC GLUCOSE (11/13/2023 6:08 AM CDT) [facility] POC Glucose 154(H) 70 - 100 mg/dL [facility] Blood 11/13/2023 6:08 AM CDT Jessica Grullon MD LABORATORY [facility] [address] [place] [address], * (ABNORMAL) CYSTATIN C (11/13/2023 5:18 AM CDT) [facility] eGFR by Cystatin C 31(L) >=60 ml/min/1.7 3m2 [facility] Comment: Estimated GFR calculated using the CKD-EPI Cystatin C (2012) equation. Stage ? Description ?eGFR Range ??1.......Normal or increased eGFR.......90 or Greater ??2.......Mildly decreased eGFR..........60-89 ??3.......Moderately decreased eGFR......30-59 ??4.......Severely decreased eGFR........15-29 ??5.......Kidney Failure.................Less than 15 Cystatin C 2.11(H) 0.61 - 0.95 mg/L [facility] Blood 11/13/2023 5:18 AM CDT 11/13/2023 5:47 AM CDT Zac Churchill MD LABORATORY [facility] [address] [place] [address] * VANCOMYCIN LEVEL (11/13/2023 5:18 AM CDT) [facility] Vancomycin 35.4 mcg/mL [facility] Comment:Expected Range (Trou gh): 10-20 mcg/ml Blood 11/13/2023 5:18 AM CDT 11/13/2023 5:47 AM CDT Zac Churchill MD LABORATORY Performing Organization Address City/[facility] Co de Phone Number [facility] [address] [address] * (ABNORMAL) PHOSPHORUS (11/13/2023 5:18 AM CDT) Phosphorus 5.2(H) 2.5 - 4.5 mg/dL [facility] Blood 11/13/2023 5:18 AM CDT 11/13/2023 5:47 AM CDT Zac Churchill MD LABORATORY Performing Organization Address [facility] de Phone Number [facility] [address] [address] * (ABNORMAL) PANEL BASIC METABOLIC (BMP) (11/13/2023 5:18 AM CDT) AnGap 12 8 - 16 mmol/L [facility] Sodium 137 135 - 148 mmol/L [facility] Chloride 103 92 - 108 mmol/L [facility] BUN 37(H) 6 - 20 mg/dL [facility] Calcium 7.8(L) 8.6 - 10.0 mg/dL [facility] CO2 22 22 - 30 mmol/L [facility] Glucose 168(H) 70 - 100 mg/dL [facility] Creatinine 3.04(H) 0.70 - 1.25 mg/dL [facility] Potassium 4.4 3.5 - 5.3 mmol/L [facility] eGFR (2020 CKD-EPI) 25(L) >=60 ml/min/1.7 3m2 [facility] Comment: The estimated glomerular filtration rate (eGFR) was calculated using the CKD-EPI 2020 creatinine equation, which does not include race as a factor. This equation is validated in individuals 18 years of age and older, and eGFR is normalized to a body surface area of 1.73m^2. Blood 11/13/2023 5:18 AM CDT 11/13/2023 5:47 AM CDT Zac Churchill MD LABORATORY Performing Organization Address City/[facility]/ZIP Co de Phone Number [facility] [address] [address] * MAGNESIUM (11/13/2023 5:18 AM CDT) Magnesium 2.3 1.6 - 2.6 mg/dL [facility] Blood 11/13/2023 5:18 AM CDT 11/13/2023 5:47 AM CDT Zac Churchill MD LABORATORY Performing Organization Address [facility] Co de Phone Number [facility] [address] [address] * (ABNORMAL) CBC WITH PLATELET (11/13/2023 5:18 AM CDT) WBC 13.27(H) 4.00 - 10.00 k/cmm [facility] RBC 3.28(L) 4.60 - 6.00 m/cmm [facility] Hgb 9.2(L) 13.1 - 17.5 g/dL [facility] Hematocrit 30.0(L) 40.0 - 51.0 % [facility] MCV 91.5 80.0 - 100.0 fL [facility] MCH 28.0 25.0 - 32.0 pg [facility] MCHC 30.7(L) 31.0 - 36.0 g/dL [facility] RDW 13.5 11.5 - 14.5 % [facility] Plt 317 150 - 400 k/cmm [facility] MPV 10.1 6.5 - 12.5 fL [facility] Blood 11/13/2023 5:18 AM CDT 11/13/2023 5:47 AM CDT Zac Churchill MD LABORATORY Performing Organization Address City/[facility]/ZIP Co de Phone Number [facility] [address] [address] * RPR SYPHILIS SCREEN (11/12/2023 11:10 PM CDT) RPR Screen Non-Reactive Non-Reacti ve [facility] RPR Titer Not Reflexed [facility] Blood 11/12/2023 11:1 0 PM CDT 11/12/2023 11:40 PM CDT Zac Churchill MD LABORATORY Performing Organization Address [facility] de Phone Number [facility] [place] [address] * (ABNORMAL) POC GLUCOSE (11/12/2023 8:47 PM CDT) POC Glucose 196(H) 70 - 100 mg/dL [facility] Blood 11/12/2023 8:47 PM CDT Jessica Grullon MD LABORATORY Performing Organization Address [facility] de Phone Number [facility] [place] [address], * (ABNORMAL) POC GLUCOSE (11/12/2023 4:41 PM CDT) Pathologist [facility] POC Glucose 172(H) 70 - 100 mg/dL [facility] Blood 11/12/2023 4:41 PM CDT Jessica Grullon MD LABORATORY Performing Organization Address [facility] de Phone Number [facility] [place] [address], * VANCOMYCIN LEVEL (11/12/2023 1:22 PM CDT) Vancomycin 47.5 mcg/mL [facility] Comment:Expected Range (Trou gh): 10-20 mcg/ml Blood 11/12/2023 1:22 PM CDT 11/12/2023 1:34 PM CDT Narrative [facility] - 11/12/2023 2:28 PM CDT Peak or trough:->Trough Zac Churchill MD LABORATORY Performing Organization Address [facility] de Phone Number [facility] [address] [address] * (ABNORMAL) CYSTATIN C (11/12/2023 11:36 AM CDT) Cystatin C 2.20(H) 0.61 - 0.95 mg/L [facility] eGFR by Cystatin C 29(L) >=60 ml/min/1.7 3m2 [facility] Comment: Estimated GFR calculated using the CKD-EPI Cystatin C (2012) equation. Stage ? Description ?eGFR Range ??1.......Normal or increased eGFR.......90 or Greater ??2.......Mildly decreased eGFR..........60-89 ??3.......Moderately decreased eGFR......30-59 ??4.......Severely decreased eGFR........15-29 ??5.......Kidney Failure.................Less than 15 Blood 11/12/2023 11:3 6 AM CDT 11/12/2023 2:53 PM CDT Zac Churchill MD LABORATORY Performing Organization Address [facility] Co de Phone Number [facility] [address] [address] * (ABNORMAL) PHOSPHORUS (11/12/2023 11:36 AM CDT) Phosphorus 5.8(H) 2.5 - 4.5 mg/dL [facility] Blood 11/12/2023 11:3 6 AM CDT 11/12/2023 11:49 AM CDT Zac Churchill MD LABORATORY Performing Organization Address City/[facility] Co de Phone Number [facility] [address] [address] * (ABNORMAL) PANEL BASIC METABOLIC (BMP) (11/12/2023 11:36 AM CDT) Sodium 137 135 - 148 mmol/L [facility] Potassium 4.9 3.5 - 5.3 mmol/L [facility] Chloride 104 92 - 108 mmol/L [facility] CO2 23 22 - 30 mmol/L [facility] AnGap 10 8 - 16 mmol/L [facility] Glucose 160(H) 70 - 100 mg/dL [facility] BUN 29(H) 6 - 20 mg/dL [facility] Creatinine 2.24(H) 0.70 - 1.25 mg/dL [facility] Calcium 7.8(L) 8.6 - 10.0 mg/dL [facility] eGFR (2020 CKD-EPI) 36(L) >=60 ml/min/1.7 3m2 [facility] Comment: The estimated glomerular filtration rate [...] Zac Churchill MD LABORATORY Performing Organization Address [facility] Co de Phone Number [facility] [address] [phone] * MAGNESIUM (11/12/2023 11:36 AM CDT) Magnesium 2.3 1.6 - 2.6 mg/dL [facility] Blood 11/12/2023 11:3 6 AM CDT 11/12/2023 11:49 AM CDT Zac Churchill MD LABORATORY Performing Organization Address [facility] [facility] Co de Phone Number [facility] [address] [address] * (ABNORMAL) CBC WITH PLATELET (11/12/2023 11:36 AM CDT) WBC 17.87(H) 4.00 - 10.00 k/cmm [facility] RBC 3.40(L) 4.60 - 6.00 m/cmm [facility] Hgb 9.6(L) 13.1 - 17.5 g/dL [facility] Hematocrit 31.1(L) 40.0 - 51.0 % [facility] MCV 91.5 80.0 - 100.0 fL [facility] MCH 28.2 25.0 - 32.0 pg [facility] MCHC 30.9(L) 31.0 - 36.0 g/dL [facility] RDW 13.6 11.5 - 14.5 % [facility] Plt 287 150 - 400 k/cmm [facility] MPV 10.5 6.5 - 12.5 fL [facility] Blood 11/12/2023 11:3 6 AM CDT 11/12/2023 11:48 AM CDT Zac Churchill MD LABORATORY [facility] [place] [address] * (ABNORMAL) POC GLUCOSE (11/12/2023 11:05 AM CDT) Pathologist [facility] POC Glucose 147(H) 70 - 100 mg/dL [facility] Blood 11/12/2023 11:0 5 AM CDT Jessica Grullon MD LABORATORY [facility] POINT [facility] CARE [address] [place] [address] * (ABNORMAL) POC GLUCOSE (11/12/2023 10:09 AM CDT) Pathologist [facility] POC Glucose 163(H) 70 - 100 mg/dL [facility] Blood 11/12/2023 10:0 9 AM CDT Jessica Grullon MD LABORATORY [place] [address] [place] [address], [place] * (ABNORMAL) POC GLUCOSE (11/12/2023 9:04 AM CDT) POC Glucose 146(H) 70 - 100 mg/dL [facility]INT [facility]ARE Blood 11/12/2023 9:04 AM CDT Jessica Grullon MD LABORATORY Performing Organization Address City/[facility]/ZIP Co de Phone Number [place] [address] [place] [address], [place] * (ABNORMAL) POC GLUCOSE (11/12/2023 8:01 AM CDT) POC Glucose 152(H) 70 - 100 mg/dL [facility] Blood 11/12/2023 8:01 AM CDT Jessica Grullon MD LABORATORY Performing Organization Address City/[facility] Co de Phone Number [place] [address] [place] [address], [place] * (ABNORMAL) POC GLUCOSE (11/12/2023 7:00 AM CDT) POC Glucose 147(H) 70 - 100 mg/dL [facility] Blood 11/12/2023 7:00 AM CDT Jessica Grullon MD LABORATORY Performing Organization Address City/[facility]/ZIP Co de Phone Number [place] [address] [place] [address], [place] * (ABNORMAL) POC GLUCOSE (11/12/2023 6:02 AM CDT) POC Glucose 169(H) 70 - 100 mg/dL [facility] POINT [facility] CARE Blood 11/12/2023 6:02 AM CDT Jessica Grullon MD LABORATORY [facility]ARE [address] [place] [address], [place] * (ABNORMAL) POC GLUCOSE (11/12/2023 5:00 AM CDT) POC Glucose 166(H) 70 - 100 mg/dL [facility] Blood 11/12/2023 5:00 AM CDT Jessica Grullon MD LABORATORY Performing Organization Address City/[facility]/ZIP Co de Phone Number [place] [address] [place] [address], [place] * (ABNORMAL) POC GLUCOSE (11/12/2023 4:02 AM CDT) POC Glucose 178(H) 70 - 100 mg/dL [facility] POINT [facility] Blood 11/12/2023 4:02 AM CDT Jessica Grullon MD LABORATORY Performing Organization Address City/[facility]/ZIP Co de Phone Number [place] [address] [place] [address], [place] * (ABNORMAL) POC GLUCOSE (11/12/2023 3:17 AM CDT) POC Glucose 176(H) 70 - 100 mg/dL [facility] Blood 11/12/2023 3:17 AM CDT Jessica Grullon MD LABORATORY [facility] PO[facility] [address] [place] [address], [place] * (ABNORMAL) POC GLUCOSE (11/12/2023 2:14 AM CDT) POC Glucose 197(H) 70 - 100 mg/dL [facility] Blood 11/12/2023 2:14 AM CDT Jessica Grullon MD LABORATORY [facility] [address] [place] [address], [place] * (ABNORMAL) POC GLUCOSE (11/12/2023 1:02 AM CDT) POC Glucose 195(H) 70 - 100 mg/dL [facility] Blood 11/12/2023 1:02 AM CDT Jessica Grullon MD LABORATORY Performing Organization Address City/[facility] Co de Phone Number [place] [address] [place] [phone], [place] * (ABNORMAL) POC GLUCOSE (11/12/2023 12:01 AM CDT) POC Glucose 180(H) 70 - 100 mg/dL [facility]ARE Blood 11/12/2023 12:0 1 AM CDT Jessica Grullon MD LABORATORY Performing Organization Address City/[facility]/ZIP Co de Phone Number [facility] POINT [facility] [address] [place] [address], [place] * (ABNORMAL) POC GLUCOSE (11/11/2023 11:01 PM CDT) POC Glucose 185(H) 70 - 100 mg/dL [facility]ARE Blood 11/11/2023 11:0 1 PM CDT Jessica Grullon MD LABORATORY [facility] [address] [place] [address], [place] * (ABNORMAL) POC GLUCOSE (11/11/2023 10:00 PM CDT) POC Glucose 167(H) 70 - 100 mg/dL [facility] Blood 11/11/2023 10:0 0 PM CDT Jessica Grullon MD LABORATORY Performing Organization Address City/[facility] Co de Phone Number [place] [address] [place] [address], [place] * (ABNORMAL) POC GLUCOSE (11/11/2023 9:01 PM CDT) POC Glucose 148(H) 70 - 100 mg/dL [facility] Blood 11/11/2023 9:01 PM CDT Jessica Grullon MD LABORATORY Performing Organization Address City/[facility] Co de Phone Number [facility] POINT [facility] [address] [place] [address], [place] * (ABNORMAL) POC GLUCOSE (11/11/2023 8:02 PM CDT) POC Glucose 167(H) 70 - 100 mg/dL [place] Blood 11/11/2023 8:02 PM CDT Jessica Grullon MD LABORATORY Performing Organization Address City/[facility]/ZIP Co de Phone Number [facility] POINT [facility] [address] [place] [address], [place] * (ABNORMAL) POC GLUCOSE (11/11/2023 7:02 PM CDT) POC Glucose 180(H) 70 - 100 mg/dL [facility] Blood 11/11/2023 7:02 PM CDT Jessica Grullon MD LABORATORY Performing Organization Address City/[facility] Co de Phone Number [facility] POINT [facility] CARE [address] [place] [address], * (ABNORMAL) PANEL BASIC METABOLIC (BMP) (11/11/2023 6:42 PM CDT) Sodium 138 135 - 148 mmol/L [facility] Potassium 4.3 3.5 - 5.3 mmol/L [facility] Chloride 103 92 - 108 mmol/L [facility] CO2 25 22 - 30 mmol/L [facility] AnGap 10 8 - 16 mmol/L [facility] Glucose 181(H) 70 - 100 mg/dL [facility] BUN 21(H) 6 - 20 mg/dL [facility] Creatinine 1.03 0.70 - 1.25 mg/dL [facility] Calcium 8.0(L) 8.6 - 10.0 mg/dL [facility] eGFR (2020 CKD-EPI) 91 >=60 ml/min/1.7 3m2 [facility] Comment: The estimated glomerular filtration rate (eGFR) was calculated using the CKD-EPI 2020 creatinine equation, which does not include race as a factor. This equation is validated in individuals 18 years of age and older, and eGFR is normalized to a body surface area of 1.73m^2. Blood 11/11/2023 6:42 PM CDT 11/11/2023 6:47 PM CDT Zac Churchill MD LABORATORY Performing Organization Address [facility]/ZIP Co de Phone Number [facility] [address] [address] * (ABNORMAL) POC GLUCOSE (11/11/2023 6:05 PM CDT) POC Glucose 173(H) 70 - 100 mg/dL [facility] Blood 11/11/2023 6:05 PM CDT Jessica Grullon MD LABORATORY Performing Organization Address City/[facility]/ZIP Co de Phone Number [facility] POINT [facility] CARE [address] [place] [address], * (ABNORMAL) POC GLUCOSE (11/11/2023 5:01 PM CDT) POC Glucose 163(H) 70 - 100 mg/dL [facility] POINT [facility] CARE Blood 11/11/2023 5:01 PM CDT Jessica Grullon MD LABORATORY Performing Organization Address City/[facility]/ZIP Co de Phone Number [facility] [address] [place], [place] [address], [place] * (ABNORMAL) POC GLUCOSE (11/11/2023 3:47 PM CDT) POC Glucose 138(H) 70 - 100 mg/dL [facility] Blood 11/11/2023 3:47 PM CDT Jessica Grullon MD LABORATORY Performing Organization Address City/[facility] Co de Phone Number [place] [address] [place] [address], [place] * (ABNORMAL) POC GLUCOSE (11/11/2023 3:00 PM CDT) POC Glucose 147(H) 70 - 100 mg/dL [place] Blood 11/11/2023 3:00 PM CDT Jessica Grullon MD LABORATORY Performing Organization Address City/[facility]/ZIP Co de Phone Number [facility] POINT [facility] [address] [place] [address], [place] * (ABNORMAL) POC GLUCOSE (11/11/2023 2:12 PM CDT) POC Glucose 147(H) 70 - 100 mg/dL [facility] Blood 11/11/2023 2:12 PM CDT Jessica Grullon MD LABORATORY Performing Organization Address City/[facility]/ZIP Co de Phone Number [place] [address] [place] [address], [place] * (ABNORMAL) POC GLUCOSE (11/11/2023 1:02 PM CDT) POC Glucose 126(H) 70 - 100 mg/dL [facility] POINT OF CARE Blood 11/11/2023 1:02 PM CDT Jessica Grullon MD LABORATORY Performing Organization Address City/[facility]/ZIP Co de Phone Number [facility] [address] [place] [address], [place] * (ABNORMAL) POC GLUCOSE (11/11/2023 12:01 PM CDT) POC Glucose 141(H) 70 - 100 mg/dL [facility] Blood 11/11/2023 12:0 1 PM CDT Jessica Grullon MD LABORATORY Performing Organization Address City/[facility] Co de Phone Number [facility] [address] [place] [address], [place] * (ABNORMAL) POC GLUCOSE (11/11/2023 11:03 AM CDT) POC Glucose 163(H) 70 - 100 mg/dL [facility] Blood 11/11/2023 11:0 3 AM CDT Jessica Grullon MD LABORATORY Performing Organization Address City/[facility] Co de Phone Number [facility] POINT [facility] [address] [place] [address], [place] * (ABNORMAL) POC GLUCOSE (11/11/2023 9:59 AM CDT) POC Glucose 170(H) 70 - 100 mg/dL [facility] Blood 11/11/2023 9:59 AM CDT Jessica Grullon MD LABORATORY Performing Organization Address City/[facility]/ZIP Co de Phone Number [facility] POINT OF CARE [address] [place] [address], [place] * (ABNORMAL) POC GLUCOSE (11/11/2023 8:56 AM CDT) POC Glucose 166(H) 70 - 100 mg/dL [facility] POINT OF CARE Blood 11/11/2023 8:56 AM CDT Jessica Grullon MD LABORATORY Performing Organization Address [facility] Co de Phone Number [place] [address] [place] [address], [place] * (ABNORMAL) POC GLUCOSE (11/11/2023 8:01 AM CDT) POC Glucose 172(H) 70 - 100 mg/dL [facility] PO[facility] Blood 11/11/2023 8:01 AM CDT Jessica Grullon MD LABORATORY Performing Organization Address [facility] Co de Phone Number [place] [address] [place] [address], [place] * ICU PHOSPHORUS (11/11/2023 5:36 AM CDT) Phosphorus 2.9 2.5 - 4.5 mg/dL [facility] Blood 11/11/2023 5:36 AM CDT 11/11/2023 5:45 AM CDT Zac Churchill MD LABORATORY Performing Organization Address City/[facility]/ZIP Co de Phone Number [facility] [address] [place] [phone] * (ABNORMAL) ICU MAGNESIUM (11/11/2023 5:36 AM CDT) Magnesium 1.2(L) 1.6 - 2.6 mg/dL [facility] Blood 11/11/2023 5:36 AM CDT 11/11/2023 5:45 AM CDT Zac Churchill MD LABORATORY Performing Organization Address City/[facility]/ZIP Co de Phone Number [facility] [address] [address] * (ABNORMAL) ICU CBC WITH PLTS/AUTO DIFF (11/11/2023 5:36 AM CDT) WBC 17.41(H) 4.00 - 10.00 k/cmm [facility] RBC 2.72(L) 4.60 - 6.00 m/cmm [facility] Hgb 7.8(L) 13.1 - 17.5 g/dL [facility] Hematocrit 24.1(L) 40.0 - 51.0 % [facility] MCV 88.6 80.0 - 100.0 fL [facility] MCH 28.7 25.0 - 32.0 pg [facility] MCHC 32.4 31.0 - 36.0 g/dL [facility] RDW 13.2 11.5 - 14.5 % [facility] Plt 203 150 - 400 k/cmm [facility] MPV 10.1 6.5 - 12.5 fL [facility] Automated Abs Neutrophil 13.29(H) 1.70 - 6.50 k/cmm [facility] Comment:Preliminary ANC, Fin al Result to Follow Harlem Cell Slight [facility] Toxic Gran Present [facility] Toxic Vac Present [facility] Abs Neutrophil 13.41(H) 1.70 - 6.50 k/cmm [facility] Abs Lymphocyte 2.96 0.80 - 4.00 k/cmm [facility] Abs Monocyte 0.87 0.20 - 1.00 k/cmm [facility] Abs Basophil 0.17 0.00 - 0.20 k/cmm [facility] Blood 11/11/2023 5:36 AM CDT 11/11/2023 5:45 AM CDT Zac Churchill MD LABORATORY Performing Organization Address City/[facility]/ZIP Co de Phone Number [facility] [address] [address] * (ABNORMAL) ICU PANEL BASIC METABOLIC (BMP) (11/11/2023 5:36 AM CDT) AnGap 9 8 - 16 mmol/L [facility] BUN 15 6 - 20 mg/dL [facility] Calcium 6.0(AA) 8.6 - 10.0 mg/dL [facility] Comment:Critical Result Low Chloride 108 92 - 108 mmol/L [facility] CO2 22 22 - 30 mmol/L [facility] Glucose 135(H) 70 - 100 mg/dL [facility] Creatinine 0.93 0.70 - 1.25 mg/dL [facility] Potassium 3.2(L) 3.5 - 5.3 mmol/L [facility] eGFR (2020 CKD-EPI) 103 >=60 ml/min/1.7 3m2 [facility] Comment: The estimated glomerular filtration rate (eGFR) was calculated using the CKD-EPI 2020 creatinine equation, which does not include race as a factor. This equation is validated in individuals 18 years of age and older, and eGFR is normalized to a body surface area of 1.73m^2. Sodium 139 135 - 148 mmol/L [facility] Blood 11/11/2023 5:36 AM CDT 11/11/2023 5:45 AM CDT Narrative [facility] - 11/11/2023 6:25 AM CDT Critical value for Calcium called to and read back by Sheila Dias RN in STN4 at 11/11/2023 06:24:12 CDT by Larry Fuchs MLS. Zac Churchill MD LABORATORY [facility] [address] [address] * (ABNORMAL) POC GLUCOSE (11/11/2023 5:28 AM CDT) POC Glucose 149(H) 70 - 100 mg/dL [facility] Blood 11/11/2023 5:28 AM CDT Jessica Grullon MD LABORATORY [facility] [address] [place] [address], [place] * (ABNORMAL) POC GLUCOSE (11/11/2023 4:29 AM CDT) POC Glucose 159(H) 70 - 100 mg/dL [facility] PO[facility] Blood 11/11/2023 4:29 AM CDT Jessica Grullon MD LABORATORY Performing Organization Address City/[facility]/ZIP Co de Phone Number [place] [address] [place] [address], [place] * (ABNORMAL) POC GLUCOSE (11/11/2023 3:28 AM CDT) POC Glucose 153(H) 70 - 100 mg/dL [facility] Blood 11/11/2023 3:28 AM CDT Jessica Grullon MD LABORATORY Performing Organization Address City/[facility]/ZIP Co de Phone Number [place] [address] [place] [address], [place] * (ABNORMAL) POC GLUCOSE (11/11/2023 2:18 AM CDT) POC Glucose 172(H) 70 - 100 mg/dL [facility] Blood 11/11/2023 2:18 AM CDT Jessica Grullon MD LABORATORY Performing Organization Address City/[facility]/ZIP Co de Phone Number [facility] [address] [place] [address], [place] * (ABNORMAL) POC GLUCOSE (11/11/2023 1:03 AM CDT) POC Glucose 171(H) 70 - 100 mg/dL [facility] Blood 11/11/2023 1:03 AM CDT Jessica Grullon MD LABORATORY Performing Organization Address City/[facility] Co de Phone Number [facility] POINT OF CARE [address] [place] [address], * (ABNORMAL) POC GLUCOSE (11/10/2023 11:50 PM CDT) POC Glucose 201(H) 70 - 100 mg/dL [facility] POINT OF CARE Blood 11/10/2023 11:5 0 PM CDT Jessica Grullon MD LABORATORY Performing Organization Address [facility] Co de Phone Number [facility] POINT OF [address] [address], * (ABNORMAL) POC GLUCOSE (11/10/2023 10:39 PM CDT) POC Glucose 192(H) 70 - 100 mg/dL [facility] Blood 11/10/2023 10:3 9 PM CDT Jessica Grullon MD LABORATORY Performing Organization Address [facility] Co de Phone Number [facility] POINT OF [address] [address], * (ABNORMAL) TROP 6H (11/10/2023 10:15 PM CDT) 6H Trop 35 <=35 ng/L [facility] 6H Delta Significan t(A) Not Significant [facility] Blood 11/10/2023 10:1 5 PM CDT 11/10/2023 10:31 PM CDT Jessica Grullon MD LABORATORY Performing Organization Address City/[facility] Co de Phone Number [facility] [address] [place] [phone] * (ABNORMAL) POC GLUCOSE (11/10/2023 9:36 PM CDT) POC Glucose 200(H) 70 - 100 mg/dL [facility] POINT OF CARE Blood 11/10/2023 9:36 PM CDT Jessica Grullon MD LABORATORY Performing Organization Address City/[facility] Co de Phone Number [facility] POINT OF [facility] [address] [place] [address], [place] * (ABNORMAL) POC GLUCOSE (11/10/2023 8:17 PM CDT) POC Glucose 221(H) 70 - 100 mg/dL [facility] Blood 11/10/2023 8:17 PM CDT Jessica Grullon MD LABORATORY Performing Organization Address [facility] Co de Phone Number [place] [phone], [place] * (ABNORMAL) POC GLUCOSE (11/10/2023 7:07 PM CDT) POC Glucose 227(H) 70 - 100 mg/dL [facility] POINT [facility] Blood 11/10/2023 7:07 PM CDT Jessica Grullon MD LABORATORY Performing Organization Address [facility] Co de Phone Number [address] [address], [place] * (ABNORMAL) TROP 2H (11/10/2023 6:34 PM CDT) 2H Trop 21 <=35 ng/L [facility] 2H Delta Significan t(A) Not Significant [facility] Blood 11/10/2023 6:34 PM CDT 11/10/2023 6:37 PM CDT Narrative Authorizing Provider Result Kiki Grullon MD LABORATORY Performing Organization Address City/[facility]/ZIP Co de Phone Number [facility] [address] [place], [place] [phone] * (ABNORMAL) LACTATE (LACTIC ACID) (11/10/2023 6:34 PM CDT) Lactate 14.6(H) 0.7 - 2.1 mmol/L [facility] Blood 11/10/2023 6:34 PM CDT 11/10/2023 6:37 PM CDT Narrative [facility] - 11/10/2023 6:41 PM CDT Send specimen on ice! Jessica Grullon MD LABORATORY [facility] [address] [place] [address] * (ABNORMAL) POC GLUCOSE (11/10/2023 6:07 PM CDT) POC Glucose 201(H) 70 - 100 mg/dL [facility] - POINT OF CARE Blood 11/10/2023 6:07 PM CDT Jessica Grullon MD LABORATORY Performing Organization Address City/[facility]/ZIP Co de Phone Number [facility] POINT OF CARE [address] [place] [address], * (ABNORMAL) POC GLUCOSE (11/10/2023 5:30 PM CDT) POC Glucose 197(H) 70 - 100 mg/dL [facility] - POINT OF CARE Blood 11/10/2023 5:30 PM CDT Jessica Grullon MD LABORATORY Performing Organization Address City/[facility]/ZIP Co de Phone Number [facility] POINT OF CARE [address] [place] [address], * M TUBERCULOSIS AMPLIFICATION (11/10/2023 5:13 PM CDT) Final Report M. tuberculosis complex DNA not detected. [facility] Tissue STRUCTURE OF PERINEAL BODY / Unknown 11/10/2023 5:13 PM CDT 11/11/2023 10:50 AM CDT Comment:2:Perineal tissue Narrative [facility] - 11/11/2023 3:22 PM CDT This assay uses PCR nucleic acid amplification to detect Mycobacterium tuberculosis complex DNA. ??This test was developed and its performance characteristics determined by [facility]. ??It has not been cleared or approved by the [place]. Food and Drug Administration. ??FDA does not require this test to go through premarket FDA review. ??This test is used for clinical purposes. ??It should not be regarded as investigational or for research. ??[facility] Clinical Laboratory is certified under the Clinical Laboratory Improvement Amendments of 1988 (CLIA) as qualified to perform high complexity clinical laboratory testing. Z[facility] Churchill MD LAB MICROBIOLOGY Performing Organization Address [facility] Co de Phone Number [address] [address] * (ABNORMAL) TISSUE CULTURE:INCLUDES GRAM STAIN (11/10/2023 5:13 PM CDT) Final Report Positive Culture Rare Actinomyces species isolated. Most closely resembles Actinomyces hominis. Rare Staphylococcus pettenkoferi isolated. A member of the coagulase-negative Staphylococci. Staphylococcus epidermidis isolated in broth only. No further work-up. Plates held one week. (POS) [facility] Organism ACTINOMYCES SPECIES(POS) [facility] Organism STAPHYLOCOCCUS PETTENKOFERI(POS) [facility] Organism STAPHYLOCOCCUS EPIDERMIDIS(POS) [facility] Gram Stain Report Positive Gram stain Gram stain electronically reported to and acknowledged by: Fermin Osborn MD for Burn on 11/10/2023 18:43:03 by Silver Luna MLS Rare WBC's seen. Many gram positive cocci in clusters. (POS) [facility] Tissue STRUCTURE OF PERINEAL BODY / Unknown 11/10/2023 5:13 PM CDT Zac Churchill MD LAB MICROBIOLOGY Performing Organization Address [facility] Co de Phone Number [address] [address] * FUNGUS CULTURE:INCLUDES SUHAS (11/10/2023 5:13 PM CDT) Final Report No fungus isolated. [facility] SUHAS Prep No fungal elements seen. [facility] Tissue STRUCTURE OF PERINEAL BODY / Unknown 11/10/2023 5:13 PM CDT Zac Churchill MD LAB MICROBIOLOGY Performing Organization Address [facility] de Phone Number [facility] [address] [address] * (ABNORMAL) ANAEROBE CULTURE (11/10/2023 5:13 PM CDT) Final Report Positive Culture Many mixed anaerobes present. (POS) [facility] Tissue STRUCTURE OF PERINEAL BODY / Unknown 11/10/2023 5:13 PM CDT Zac Churchill MD LAB MICROBIOLOGY Performing Organization Address [facility] de Phone Number [facility] [address] [address] * AFB CULTURE:INCLUDES AFB SMEAR (11/10/2023 5:13 PM CDT) Final Report No acid fast bacilli isolated. [facility] Acid Fast Stain No acid fast bacilli seen. [facility] Tissue STRUCTURE OF PERINEAL BODY / Unknown 11/10/2023 5:13 PM CDT Zac Churchill MD LAB MICROBIOLOGY Performing Organization Address [facility] de Phone Number [facility] [address] [address] * (ABNORMAL) WOUND CULTURE:GRAM STAIN OPTIONAL (11/10/2023 5:12 PM CDT) Final Report Rare Actinomyces species isolated. Most closely resembles Actinomyces hominis. One colony Staphylococcus epidermidis isolated. (POS) [facility] Organism ACTINOMYCES SPECIES(POS) [facility] Organism STAPHYLOCOCCUS EPIDERMIDIS(POS) [facility] Gram Stain Report Many WBC's seen. Many gram positive cocci in clusters. [facility] Swab STRUCTURE OF PERINEAL BODY / Unknown 11/10/2023 5:12 PM CDT Narrative [facility] - 11/12/2023 3:34 PM CDT Do you want a gram stain: No Zac Churchill MD LAB MICROBIOLOGY Performing Organization Address [facility] Co de Phone Number [facility] [address] [address] * FUNGUS CULTURE:INCLUDES SUHAS (11/10/2023 5:12 PM CDT) Final Report No fungus isolated. [facility] SUHAS Prep No fungal elements seen. [facility] Swab STRUCTURE OF PERINEAL BODY / Unknown 11/10/2023 5:12 PM CDT Zac Churchill MD LAB MICROBIOLOGY Performing Organization Address [facility] de Phone Number [facility] [address] [address] * ANAEROBE CULTURE (11/10/2023 5:12 PM CDT) Final Report Moderate mixed anaerobes present. [facility] Swab STRUCTURE OF PERINEAL BODY / Unknown 11/10/2023 5:12 PM CDT Zac Churchill MD LAB MICROBIOLOGY Performing Organization Address [facility] Co de Phone Number [facility] [address] [address] * (ABNORMAL) POC GLUCOSE (11/10/2023 4:28 PM CDT) POC Glucose 236(H) 70 - 100 mg/dL [facility] Blood 11/10/2023 4:28 PM CDT Jessica Grullon MD LABORATORY Performing Organization Address [facility] Co de Phone Number [facility] [address] [place] [phone], [place] * ED EKG (12-LEAD) (11/10/2023 3:21 PM CDT) 11/10/2023 3:21 PM CDT Impressions [facility] CVIS EKG ORDERS - 11/10/2023 3:21 PM CDT SINUS TACHYCARDIA MINIMAL ST DEPRESSION ??[0.025+ mV ST DEPRESSION] ABNORMAL QRS-T ANGLE ??[QRS-T AXIS DIFFERENCE > 60] NONSPECIFIC ST AND T WAVE ABNORMALITY. ABNORMAL ECG P-R Interval 138 ms QRS Interval 90 ms QT Interval 348 ms QTC Interval 405 ms P Green[place] 35 QRS Greenwood 1 T Wave [place] 148 Narrative Procedure Note Jessica Grullon MD - 11/10/2023 IMPRESSION SINUS TACHYCARDIA MINIMAL ST DEPRESSION [0.025+ mV ST DEPRESSION] ABNORMAL QRS-T ANGLE [QRS-T AXIS DIFFERENCE > 60] NONSPECIFIC ST AND T WAVE ABNORMALITY. 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 ??No initial report accompanied the patient and/or ??JESSICA GRULLON requested an interpretation by me. Technique: ??CT scan of the left lower extremity done on 11/10/2023 with IV contrast. 2 mm axial, sagittal and coronal reconstructions reviewed in soft tissue and bone windows, per the local institution's scanning protocols, which may differ from the [facility] trauma protocols. Findings: ??Subcutaneous emphysema within the [...] MBBS - 11/10/2023 Indication: Patient transferred from [facility] due toFournier's gangrene. No initial report accompanied the patient and/or Dr.JESSICA GRULLON requested an interpretation by me. Technique: CT scan of the left lower extremity done on 11/10/2023 with IVcontrast. 2 mm axial, sagittal and coronal reconstructions reviewed insoft tissue and bone windows, per the local institution's scanningprotocols, which may differ from the [facility] trauma protocols. 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 ??No initial report accompanied the patient and/or Dr. ??JESSICA GRULLON requested an interpretation by me. Technique: ??CT scan of the abdomen/pelvis done on 11/10/2023 ??with IV contrast. ??3 mm axial, sagittal and coronal reconstructions reviewed in soft tissue and bone windows, per the local institution's scanning protocols, which may differ from the [facility] trauma protocols. Comparison: Same day scrotal ultrasound. [...] MBBS - 11/10/2023 Indication: Patient transferred from [facility] due toFournier's gangrene. No initial report accompanied the patient and/or Dr.ROCHELLE GRULLON requested an interpretation by me. Technique: CT scan of the abdomen/pelvis done on 11/10/2023 with IVcontrast. 3 mm axial, sagittal and coronal reconstructions reviewed insoft tissue and bone windows, per the local institution's scanningprotocols, which may differ from the [facility] trauma protocols. Comparison: Same day scrotal ultrasound. [...] (11/10/2023 2:40 PM CDT) Color YELLOW YELLOW [facility] Appearance CLEAR CLEAR [facility] Urine Glucose >=1000(A) NEGATIVE mg/dL [facility] Bili UA NEGATIVE NEGATIVE [facility] Ketones TRACE(A) NEGATIVE [facility] Blood Ur LARGE(A) Neg-Trace [facility] PH Urine 6.5 5.0 - 7.0 [facility] Protein Ur >=600(A) Neg-Trace [facility] Urobilinogen NORMAL NORMAL EU/dL [facility] Nitrite Ur NEGATIVE NEGATIVE [facility] Leuk Est NEGATIVE Neg-Trace [facility] WBC Ur 0-5 0 - 5 perHPF [facility] RBC Ur 11-20(A) 0 - 3 perHPF [facility] SQ EPITH 0-5 0 - 5 perHPF [facility] Mucus 1+ perLPF [facility] Bacteria UA PRESENT [facility] Comment:Presence of bacteria does not necessarily indicate a UTI. The presence of bacteria can indicate a non-clean catch urine specimen. Bacteria should be used in conjunction with other UA results and clinical presentation to assist in diagnosing an infection. Urinalysis Performed at: [facility] Specific [place] 1.020 1.003 - 1.030 [facility] Urine 11/10/2023 2:40 PM CDT 11/10/2023 2:47 PM CDT Jessica Grullon MD LABORATORY [facility] [address] [address] * BLOOD AEROBIC/ANAEROBIC CULTURE (11/10/2023 2:39 PM CDT) Final Report No growth after 5 days. [facility] Blood (Peripheral) 11/10/2023 2:39 PM CDT 11/10/2023 4:09 PM CDT Jessica Grullon MD LAB MICROBIOLOGY Performing Organization Address [facility] de Phone Number [facility] [address] [address] * BLOOD AEROBIC/ANAEROBIC CULTURE (11/10/2023 2:37 PM CDT) Final Report No growth after 5 days. [facility] Blood (Peripheral) 11/10/2023 2:37 PM CDT 11/10/2023 4:09 PM CDT Jessica Grullon MD LAB MICROBIOLOGY Performing Organization Address [facility] de Phone Number [facility] [address] [address] * (ABNORMAL) SED RATE (ESR) (11/10/2023 2:31 PM CDT) Sed Rate 120(H) 2 - 10 mm/hr [facility] Blood 11/10/2023 2:31 PM CDT 11/10/2023 2:57 PM CDT Jessica Grullon MD LABORATORY Performing Organization Address [facility] de Phone Number [facility] [address] [address] * EXTRA TUBE - SST (11/10/2023 2:31 PM CDT) SST TUBE Stored [facility] Comment:SST tubes (Serum Sep arator) are stored in the lab for 3 days from the collection date. Blood 11/10/2023 2:31 PM CDT 11/10/2023 2:43 PM CDT Jessica Grullon MD LABORATORY Performing Organization Address City/[facility] Co de Phone Number [facility] [address] [address] * (ABNORMAL) HS TROPONIN (11/10/2023 2:31 PM CDT) HS Troponin I 49(H) <=35 ng/L [facility] Blood 11/10/2023 2:31 PM CDT 11/10/2023 2:57 PM CDT Narrative [facility] - 11/10/2023 3:25 PM CDT First Occurrence of the Troponin order is to be drawn Stat by Nursing staff on the unit. Jessica Grullon MD LABORATORY Performing Organization Address [facility] Co de Phone Number [address] [address] * ETHANOL (ETOH) LEVEL, BLOOD (11/10/2023 2:31 PM CDT) Ethanol Negative Negative g/dL [facility] Blood 11/10/2023 2:31 PM CDT 11/10/2023 2:57 PM CDT Jessica Grullon MD LABORATORY Performing Organization Address [facility] Co de Phone Number [facility] [address] [address] * PTT (APTT) (11/10/2023 2:31 PM CDT) APTT 32.9 25.0 - 37.0 sec [facility] Blood 11/10/2023 2:31 PM CDT 11/10/2023 2:57 PM CDT Jessica Grullon MD LABORATORY Performing Organization Address [facility] Co de Phone Number [address] [address] * ED INR (11/10/2023 2:31 PM CDT) [facility] ED INR 1.1 0.8 - 1.1 [facility] Comment: Warfarin Therapeutic Range: Standard Intensity: 2.0 - 3.0 High Intensity: 2.5 - 3.5 This is a rapid INR screening test which uses whole blood; results may infrequently differ from plasma INR results. If medication adjustments/dosing are required a PT/INR test ([id number]) should be ordered and performed in the main laboratory. Blood 11/10/2023 2:31 PM CDT 11/10/2023 2:41 PM CDT Jessica Grullon MD LABORATORY Performing Organization Address City/[facility]/ZIP Co de Phone Number [facility] [address] [address] * (ABNORMAL) LACTATE (LACTIC ACID) (11/10/2023 2:31 PM CDT) [facility] Lactate 2.3(H) 0.7 - 2.1 mmol/L [facility] Blood 11/10/2023 2:31 PM CDT 11/10/2023 2:45 PM CDT Narrative [facility] - 11/10/2023 2:49 PM CDT Send specimen on ice! Jessiac Grullon MD LABORATORY Performing Organization Address City/[facility]/ZIP Co de Phone Number [facility] [address] [address] * (ABNORMAL) FIBRINOGEN (11/10/2023 2:31 PM CDT) [facility] Fibrinogen >1,000(H) 200 - 400 mg/dL [facility] Blood 11/10/2023 2:31 PM CDT 11/10/2023 2:57 PM CDT Jessica Grullon MD LABORATORY [facility] [address] [address] * (ABNORMAL) PANEL HEPATIC FUNCTION (11/10/2023 2:31 PM CDT) Pathologist [facility] Total Protein 7.1 6.4 - 8.3 g/dL [facility] Albumin 2.9(L) 3.8 - 5.1 g/dL [facility] Bili Total 0.3 <=1.2 mg/dL [facility] Bili Direct <0.2 <=0.3 mg/dL [facility] Alk Phos 104 40 - 129 IU/L [facility] Comment:No reference range e stablished for patients <18 years old. ALT (SGPT) 9 <=41 IU/L [facility] AST(SGOT) 14 5 - 40 IU/L [facility] Blood 11/10/2023 2:31 PM CDT 11/10/2023 2:57 PM CDT Jessica Grullon MD LABORATORY Performing Organization Address [facility] Co de Phone Number [facility] [address] [address] * (ABNORMAL) ED HEMOGLOBIN TOTAL (ED ONLY) (11/10/2023 2:31 PM CDT) [facility] Hgb 12.4(L) 13.1 - 17.5 g/dL [facility] Blood 11/10/2023 2:31 PM CDT 11/10/2023 2:45 PM CDT Jessica Grullon MD LABORATORY Performing Organization Address City/[facility]/ZIP Co de Phone Number [facility] [address] [address] * (ABNORMAL) ED CHEMISTRY LABS(NA,K,CL,CO2,GLU,CREAT,CA-IONIZED,ANION GAP) (11/10/2023 2:31 PM CDT) [facility] Sodium 133(L) 135 - 148 mmol/L [facility] Potassium 3.7 3.5 - 5.3 mmol/L [facility] Chloride 93 92 - 108 mmol/L [facility] AnGap 12 8 - 16 mmol/L [facility] Glucose 304(H) 70 - 100 mg/dL [facility] ICA, Actual 4.14(L) 4.40 - 5.20 mg/dL [facility] ICA, pH Corrected 4.29(L) 4.40 - 5.20 mg/dL [facility] Creatinine 0.98 0.70 - 1.25 mg/dL [facility] BICARB 27(H) 22 - 26 mEq/L [facility] eGFR (2020 CKD-EPI) 97 >=60 ml/min/1.7 3m2 [facility] Comment: The estimated glomerular filtration rate (eGFR) was calculated using the CKD-EPI 2020 creatinine equation, which does not include race as a factor. This equation is validated in individuals 18 years of age and older, and eGFR is normalized to a body surface area of 1.73m^2. Blood 11/10/2023 2:31 PM CDT 11/10/2023 2:45 PM CDT Jessica Grullon MD LABORATORY [facility] [address] [address] * (ABNORMAL) CBC WITH PLTS/AUTO DIFF (11/10/2023 2:31 PM CDT) WBC 21.95(H) 4.00 - 10.00 k/cmm [facility] RBC 4.26(L) 4.60 - 6.00 m/cmm [facility] Hgb 12.0(L) 13.1 - 17.5 g/dL [facility] Hematocrit 36.3(L) 40.0 - 51.0 % [facility] MCV 85.2 80.0 - 100.0 fL [facility] MCH 28.2 25.0 - 32.0 pg [facility] MCHC 33.1 31.0 - 36.0 g/dL [facility] RDW 12.9 11.5 - 14.5 % [facility] Plt 262 150 - 400 k/cmm [facility] MPV 10.1 6.5 - 12.5 fL [facility] Automated Abs Neutrophil 18.29(H) 1.70 - 6.50 k/cmm [facility] Comment:Preliminary ANC, Fin al Result to Follow Abs Immature Granulocyte 0.26(H) 0.00 - 0.09 k/cmm [facility] Comment:The Immature Granulo cyte Absolute count contains metamyelocytes and myelocytes. Abs Neutrophil 18.29(H) 1.70 - 6.50 k/cmm [facility] Abs Lymphocyte 1.53 0.80 - 4.00 k/cmm [facility] Abs Monocyte 1.83(H) 0.20 - 1.00 k/cmm [facility] Abs Eosinophil 0.00 0.00 - 0.60 k/cmm [facility] Abs Basophil 0.04 0.00 - 0.20 k/cmm [facility] Polychromasia Slight [facility] Dohle Body Present [facility] Toxic Vac Present [facility] Blood 11/10/2023 2:31 PM CDT 11/10/2023 2:57 PM CDT Jessica Grullon MD LABORATORY Performing Organization Address [facility] Co de Phone Number [address] [address] * (ABNORMAL) BLOOD GASES (11/10/2023 2:31 PM CDT) Pathologist [facility] PH Mayo 7.47(H) 7.32 - 7.42 [facility] PCO2 Mayo 38(L) 41 - 51 mmHG [facility] PO2 [place] 75(H) 25 - 40 mmHG [facility] Bicarb [place] 27 24 - 28 mEq/L [facility] O2 Sat [place] 96 % [facility] Base Exc [place] 3.7(H) -10.0 - 2.0 mmol/L [facility] Blood Venous 11/10/2023 2:31 PM CDT 11/10/2023 2:45 PM CDT Jessica Grullon MD LABORATORY Performing Organization Address [facility]/ZIP Co de Phone Number [address] [address] * ANTIBODY SCREEN (11/10/2023 2:29 PM CDT) Lilly Screen Negative [facility] Blood 11/10/2023 2:29 PM CDT 11/10/2023 2:49 PM CDT Jessica Grullon MD LAB TRANSFUSION SER VICES Performing Organization Address [facility] Co de Phone Number [facility] [place] [phone] * BLOOD TYPING-ABO/RH (11/10/2023 2:29 PM CDT) ABORHG A POS [facility] Blood 11/10/2023 2:29 PM CDT 11/10/2023 2:49 PM CDT Jessica Grullon MD LAB TRANSFUSION SER VICES Performing Organization Address [facility] Co de Phone Number [facility] [address] [address] * PRECAUTIONARY TUBE (11/10/2023 2:29 PM CDT) Prec Tube Precautionary Blood Bank Specimen Received. [facility] Blood 11/10/2023 2:29 PM CDT 11/10/2023 2:49 PM CDT Jessica Grullon MD LAB TRANSFUSION SER VICES Performing Organization Address [facility] Co de Phone Number [facility] [address] [address] * ED US CRITICAL CARE (11/10/2023 2:28 PM CDT) Anatomical Region Laterality Modality Ultrasound Narrative 11/10/2023 3:16 PM CDT ED Critical Care Resuscitative Ultrasound ED Cardiac Ultrasound Body Areas Imaged: Heart, Chest Wall/Lungs, and Inferior Vena Cava Indications:Shock/Sepsis Window: Subxiphoid, Parasternal Short [place], Parasternal Long [place], Apical 4-Chamber, and Bilateral Lungs Findings: The [...] local infection of skin and subcutaneous tissue 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HHS) Specified vascular disorder of [...] 11/22/2023 8:35 PM CDT 20 mg heparin 15883 UNITS/mL injection 7,500 UNITS 7,500 UNITS, Subcutaneous, [...] 2015 (Given - Provider: Sheila Dias RN) cyclobenzaprine (FLEXERIL) tablet 10 mg 10 mg, Oral, TID, First dose on Wed11/11/23 at 1200, Until Discontinued 903 (Given - Provider: John Taylor RN)142 (Given - Provider: Demetra Brito RN)2029 (Given - Provider: Irene Min RN) 075 (Given - Provider: Demetra Brito RN)143 (Given - Provider: Demetra Brito RN)2015 (Given - Provider: Sheila Dias RN) 0847 (Given - Provider: Kate Harmon, RN) DC MED REC REVIEW BY PHARMACY(Linked [...] Discontinued 2028 (Given - Provider: Irene Min, RN) 2015 (Given - Provider: Sheila Dias RN) heparin 87713 UNITS/mL injection 7,500 UNITS 7,500 UNITS, Subcutaneous, Q 8H, First dose on Wed11/17/23 at 1505, Until Discontinued 0553 (Given - Provider: Mabel Mathews RN)1424 (Given - Provider: Demetra Brito RN)2304 (Given - Provider: Irene Min RN) 0603 (Given - Provider: Deja Vasquez RN)1429 (Given - Provider: Demetra Brito, SABINE)2224 (Given - Provider: Sheila Dias, SABINE) 0646 (Given - Provider: Sheila Dias RN) [...] Provider: Demetra Brito RN)0904 (Given - Provider: [place] Claudia, RN)1145 (Dual Sign-Off - Provider: John Taylor [...] (Not Given (removes Due time) - Provider: rIene Min RN - Reason: Held per order) [...] (Patch applied - Provider: Demetra Brito RN) 075 (Patch removed - Provider: Demetra Brito RN)0751 (Patch applied - Provider: Demetra Brito RN) 0847 (Patch applied - Provider: Kate Harmon RN)0849 (Patch removed - Provider: Kate Harmon RN)1202 (Due: Patch removed - Provider: JENNIFER NARAYANAN, [facility] - Comment: Time automatically adjusted from order being discontinued) normal saline flush 0.9 % solution 10 mL 10 mL, IV Push, Q12H, First dose on Wed11/15/23 at 0800, Until Discontinued 0939 (Not Given (removes Due time) - Provider: Demetra Brito RN - Reason: Held per nurse)2029 (Given - Provider: Irene Min RN) 750 (Given - Provider: Demetra Brito RN)2018 (Given - Provider: Sheila Dias RN) 0849 (Given - Provider: Kate Harmon RN) polyethylene glycol 3350 (MIRALAX;GLYCOLAX) packet 17 g 17 g, Oral, DAILY, First dose on Wed11/11/23 at 0800, Until Discontinued 938 (Not Given (removes Due time) - Provider: Demetra Brito RN - Reason: Patient refused) 0751 (Not Given (removes Due time) - Provider: [...] modification) on Wed11/11/23 at 2000, Until Discontinued 938 (Not Given (removes Due time) - Provider: Demetra Brito RN - Reason: Patient not in room)2028 (Given - Provider: Irene Min RN) 075 (Not Given (removes Due time) - Provider: Demetra Brito RN - Reason: Patient refused)2043 (Not Given (removes Due time) - Provider: Sheila Dias RN - Reason: Patient refused) 08 (Given - Provider: Kate Harmon RN) traZODone [...] Taylor RN)1640 (Given - Provider: Demetra Brito RN)2030 (Given - Provider: Irene Min RN) 0752 [...] Dias, SABINE) 0952 (Given - Provider: Kate Harmon, RN) Linked Groups Order Group 1: DC [...]
--- OUTSIDE RECORDS SUMMARY | 2024-02-07 08:59 | XMS_ITS | Clinical Summary ---
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 revenue officer directions. 1 Each 07/24/19 23 Active durable medical equipment (DME)Indications:F ollow-up examination after orthopedic surgery,Osteomyeli tis of right foot, unspecified type (HC),Diabetic ulcer of right midfoot associated with type 2 diabetes mellitus, with necrosis of muscle (HC) SQUARED TOE POST OP SHOE, LARGE, REF: [phone] 1 Each 10/15/19 23 Active ondansetron (ZOFRAN ODT) 4 mg disintegrating [...] IN 24 HOURS-- 60 Tablet 12 11/13/19 23 Active nicotine (Nicorette) 4 mg lozengeIndications :Tobacco use Place 1 Lozenge (4 mg) in mouth, between cheek & gum every hour while awake as needed for Nicotine Craving. Max 20 doses/day. 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 E11.9 NIDDM type II - Test 4 times/day. 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 30 Each 10/27/19 24 Active povidone-iodine (PROFEND, BETADINE) 10 % topical swabIndications:Di abetic ulcer of toe of left foot associated with type 2 diabetes mellitus, with fat layer exposed (HC) Apply 1 Applicator topically to affected area(s) one time if needed (as needed for wound care) for up to 1200 doses. 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 28 Capsule 01/25/20 24 Active paliperidone palmitate (INVEGA SUSTENNA) 156 mg/mL intramuscular syringeIndications :Paranoid schizophrenia (HC) Inject 156 mg intramuscular every 4 weeks. 1 mL 01/25/20 Active traZODone (DESYREL) 50 mg tabletIndications: Insomnia due to mental condition Take 1 Tablet (50 mg) by mouth at bedtime, may repeat once. 28 Tablet 01/25/20 Active escitalopram oxalate (LEXAPRO) 20 mg tabletIndications: Paranoid schizophrenia (HC),Other specified anxiety disorders Take 1 Tablet (20 mg) by mouth at bedtime. 28 Tablet 01/25/20 24 Active acetaminophen (TYLENOL) 325 mg tablet Take 650 mg by mouth three times daily. Take 3 tablets by mouth 3 times daily. Active amLODIPine (NORVASC) 10 mg tablet Take 10 mg by mouth once daily. Hold for SBP less than 120. Active chlorhexidine (PERIDEX) 0.12 % solution Swish and spit 15 mL by mouth once daily. rinse with 15 ml for 30 seconds once daily then spit. Nothing by mouth for 30 minutes after. Active ciprofloxacin HCl (CIPROFLOXACIN, BULK, MISC) As directed 500 mg two times daily. take 1 table by mouth twice daily for 10 days. Active sennosides-docusat e (SENOKOT S) (8.6-50 mg) tablet Take 2 Tablets by mouth two times daily. Active Diaper,Brief, Adult,DisposableIn dications:Other urinary incontinence For home use.XL depends pull up briefs 96 Each 02/02/20 Active metFORMIN (GLUCOPHAGE XR) 500 mg Extended-Release tabletIndications: Type 2 diabetes mellitus with diabetic nephropathy, with long-term current use of insulin (HC) TAKE 1 TABLET BY MOUTH TWICE DAILY WITH MEAL(S) 90 Tablet 3 02/02/20 Active Lantus Solostar U-100 Insulin 100 unit/mL (3 mL) penIndications:Typ e 2 diabetes mellitus with diabetic nephropathy, without long-term current use of insulin (HC) Inject 20 units subcutaneous two times daily. Product desired: LANTUS SOLOSTAR 15 mL 11 02/02/20 Active HumaLOG KwikPen Insulin 100 unit/mL inpn penIndications:Typ e 2 diabetes mellitus with diabetic nephropathy, with long-term current use of insulin (HC) INJECT 10 UNITS SUBCUTANEOUSLY THREE TIMES DAILY WITH MEAL(S) 60 mL 02/02/20 24 Active psyllium powdIndications:Lo ose stools Mix 1 tsp in liquid then take by mouth once daily. 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 Product desired: LANTUS SOLOSTAR 15 mL 07/28/19 024 Discontinued(*M edication adjustment) metFORMIN (GLUCOPHAGE XR) 500 mg Extended-Release tabletIndications: Type 2 diabetes mellitus with diabetic nephropathy, with long-term current use of insulin (HC) TAKE 1 TABLET BY MOUTH TWICE DAILY WITH MEAL(S) 180 Tablet 08/14/19 024 Discontinued(Re order (E-cancel not sent)) HumaLOG KwikPen Insulin 100 unit/mL inpn penIndications:Typ e 2 diabetes mellitus with diabetic nephropathy, with long-term current use of insulin (HC) INJECT 10 UNITS SUBCUTANEOUSLY THREE TIMES DAILY WITH MEAL(S) 60 mL 04/08/20 24 09/25/2 024 Discontinued(*M edication adjustment) prazosin (MINIPRESS) 1 mg capsuleIndications :History of posttraumatic stress disorder (PTSD) Take 1 Capsule (1 mg) by mouth at bedtime. 28 Capsule 08/30/19 024 Discontinued(*M edication adjustment) paliperidone palmitate (INVEGA SUSTENNA) 156 mg/mL intramuscular syringeIndications :Paranoid schizophrenia (HC) Inject 156 mg intramuscular every 4 weeks. 1 mL 08/30/19 024 Discontinued(*M edication adjustment) traZODone (DESYREL) 50 mg tabletIndications: Insomnia due to mental condition Take 1 Tablet (50 mg) by mouth at bedtime, may repeat once. 90 Tablet 3 08/30/19 024 Discontinued(*M edication adjustment) escitalopram oxalate (LEXAPRO) 20 mg tabletIndications: Paranoid schizophrenia (HC),Other specified anxiety disorders Take 1 Tablet (20 mg) by mouth at bedtime. 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 04/13/2022 Overview (04/13/2022): Other specified anxiety disorders 03/17/2022 LLQ abdominal pain 03/14/2016 Situs inversus 03/14/2016 Paranoid schizophrenia 01/10/2009 Encounter for long-term (current) use of other m edications 01/10/2009 Diabetes mellitus, type 2 Hyperlipemia Chronic pain Resolved Problems Problem Noted Date Diagnosed Date Resolved Date Osteomyelitis 12/31/2022 07/29/2023 Paranoid schizophrenia 02/23/202203/17 Encounters Date Type Department Care Team Description 02/02/2024 3:20 PM CDT Office Visit [facility] [place] [address] [facility] [place] [address] Jose R Foster MD Diabetes; Hospital F/U ([facility], 12/07/23, left foot); Wound Check (groin) 02/02/2024 Travel 01/25/2024 1:30 PM CDT Office Visit [facility] [place] [address] [place] [address] Trey Kim MD Follow Up; Medication Management (feeling, good. I'm sad, because my taxi tickets didn't come in yet. And my back is really sore) 01/25/2024 Travel 01/24/2024 Refill [facility] [place] [address] [place] [address] Jose R Foster MD Refill Request (Dexcom G6 Transmitter) 11/10/2023 Orders Only [facility] Scanner 1 scan: (1-Ord) [facility], CT FEMUR LT W, 11/10/2023 11/10/2023 Orders Only [facility] Scanner 1 scan: (1-Ord) [place], ABDOMEN/PELVIS andCT LT LOWER EXTREMITY EXTENDING FROM PELVIS THROUGH TOES W IV CONTRAST, 11/10/2023 11/10/2023 Orders Only [facility] Scanner 1 scan: (1-Ord) [facility], CT ABDOMEN PELVIS W/ CON, 11/10/2023 11/10/2023 Orders Only [facility] Scanner 1 scan: (1-Ord) [facility], US SCROTUM, 11/10/2023 11/08/2023 Orders Only [facility] Scanner 1 scan: (1-Ord) [place], FOOT LT MIN 3VW, 11/08/2023 from Last 3 Months Immunizations Name Administration [...] Date Smoking Tobacco: Every Day Cigarettes 1.5 16.6 Started: 08/17/2002; Last attempted to quit: 08/17/2017 Smokeless Tobacco: Never Tobacco Cessation:Ready to Q uit: No; Counseling Given: Yes Alcohol Use Standard Drinks/Week Comments Not Currently 0 (1 standard drink = 0.6 oz pur e alcohol) PHQ-2 Answer Date Recorded PHQ-2 TOTAL SCORE 1 01/25/2024 Social Connections Answer Date Recorded Frequency of Communication with Friends and Fami ly Not on file 04/09/2022 Alcohol Use Answer Date Recorded How often [...] Sign Reading Time Taken Comments Blood Pressure 129/85 02/02/2024 3:22 PM CDT Pulse 92 02/02/2024 3:22 PM CDT Temperature 36.7 ??C (98 ??F) 02/02/2024 3:22 PM CDT Respiratory Rate 18 01/01/2023 4:00 PM CDT Oxygen Saturation 97% 02/02/2024 3:22 PM CDT Inhaled Oxygen Concentration - - Weight 136.1 kg (300 lb) 02/02/2024 3:22 PM CDT Height 180.3 cm (5' 11) 02/02/2024 3:22 PM CDT Body Mass Index 41.84 02/02/2024 3:22 PM CDT Plan of Treatment Health Maintenance Due Date Last Done Comments HIV for age 15-65 1993 Hepatitis C screening for ag e 18-79 02/09/1996 Hepatitis B series for Diabe chuck (1 of 3 - 19+ 3-dose series) 1997 Colonoscopy through age 75 2023 COVID-19 vaccine series ( season) 2024 08/19/2023, 02/22/2023 Influenza for age 9-49 01/09/2024 , 02/23/2022, 04/19/2019 Depression screening for age 12+ 01/24/2025 01/25/2024, 01/24/2024, 10/27/2023, Additional history exists BMI (ht and wt on same day) for age 18+ 02/01/2025 02/02/2024, 07/27/2023, 12/08/2022, Additional history exists Lipids for age 45-75 07/26/2028 07/27/2023, 02/24/2022, 11/03/2018, Additional history exists Tetanus booster 07/23/2032 07/23/2022, 07/08, 07/17/2005, Additional history exists Tdap Completed 07/17/2005 Pneumococcal series for age 6-64 Completed 07/24/19, 04/19/2019 Goals Goal Patient Goal Type Associated Problems Recent Progress Patient-Stated? 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) SCAN-CT INTERPRETATION 07/03/202 4 12:00 AM CDT SCAN-CT INTERPRETATION 4 12:00 AM CDT SCAN-CT INTERPRETATION 4 12:00 AM CDT SCAN-ULTRASOUND REPORT 4 12:00 AM CDT SCAN-RADIOLOGY REPORT 11/08/2023 12:00 AM CDT LIPID PANEL W REFLEX MEASURED LDL Routine 07/27/2023 2:22 PM CDT Long-term use of high-risk medication from Last 3 Months or Most Recently Relevant to Health Maintenance Results * (ABNORMAL) HEMOGLOBIN A1C MONITORING (POCT) (02/02/2024 3:14 PM CDT) Pathologist [facility] POC HEMOGLOBIN A1C 10.0(H) <6.0 % OF TOTAL HGB [facility] Comment: Any point of care results exhibiting inconsistency with the patient's clinical status should be repeated using a different testing method. Blood BLOOD SPECIMEN / Unknown 02/02/2024 3:14 PM CDT 02/02/2024 3:14 PM CDT Jose R Foster MD CHEMISTRY [facility] [address] [place] [address], [facility] [address] [place] [address] * (ABNORMAL) CBC WITH AUTO DIFFERENTIAL (02/02/2024 3:13 PM CDT) Pathologist [facility] [place] WHITE BLOOD CELL COUNT 11.6(H) 3.8 - 10.8 Thousand/u L [facility] RED BLOOD CELL COUNT 4.56 4.20 - 5.80 Million/uL [facility] HEMOGLOBIN 12.8(L) 13.2 - 17.1 g/dL [facility] HEMATOCRIT 40.2 38.5 - 50.0 % [facility] MCV 88.2 80.0 - 100.0 fL [facility] MCH 28.1 27.0 - 33.0 pg [facility] MCHC 31.8(L) 32.0 - 36.0 g/dL [facility] RDW 14.5 11.0 - 15.0 % [facility] PLATELET COUNT 346 140 - 400 Thousand/u L [facility] MPV 10.1 7.5 - 12.5 fL [facility] ABSOLUTE NEUTROPHILS 6,566 1,500 - 7,800 cells/uL [facility] ABSOLUTE LYMPHOCYTES 3,677 850 - 3,900 cells/uL [facility] ABSOLUTE MONOCYTES 963(H) 200 - 950 cells/uL [facility] ABSOLUTE EOSINOPHILS 336 15 - 500 cells/uL [facility] ABSOLUTE BASOPHILS 58 0 - 200 cells/uL [facility] NEUTROPHILS 56.6 % [facility] LYMPHOCYTES 31.7 % [facility] MONOCYTES 8.3 % [facility] EOSINOPHILS 2.9 % [facility] BASOPHILS 0.5 % [facility] 02/02/2024 3:13 PM CDT 02/02/2024 3:13 PM CDT Jose R Foster MD HEMATOLOGY [facility] [address] [place] [address], [facility] [address] [place] [address] * (ABNORMAL) BASIC METABOLIC PANEL (02/02/2024 3:13 PM CDT) [facility] Signature GLUCOSE 326(H) 65 - 99 mg/dL [facility] Comment: ? Fasting reference interval For someone without known diabetes, a glucose value >125 mg/dL indicates that they may have diabetes and this should be confirmed with a follow-up test. UREA NITROGEN (BUN) 12 7 - 25 mg/dL [facility] CREATININE 1.02 0.60 - 1.29 mg/dL [facility] EGFR 92 > OR = 60 mL/min/1. 73m2 [facility] BUN/CREATININE RATIO SEE NOTE: 6 - 22 (calc) [facility] Comment: ?? Not Reported: BUN and Creatinine are within ?? reference range. ? SODIUM 135 135 - 146 mmol/L [facility] POTASSIUM 4.2 3.5 - 5.3 mmol/L [facility] CHLORIDE 98 98 - 110 mmol/L [facility] CARBON DIOXIDE 26 20 - 32 mmol/L [facility] ELECTROLYTE BALANCE 11 7 - 17 mmol/L (calc) [facility] CALCIUM 9.1 8.6 - 10.3 mg/dL [facility] Blood BLOOD SPECIMEN / Unknown 02/02/2024 3:13 PM CDT 02/02/2024 3:13 PM CDT Jose R Foster MD CHEMISTRY [employer] [place] [facility] [address] [place] [address], [facility] [address] [place] [address] * SCAN-ULTRASOUND REPORT (11/10/2023 12:00 AM CDT) Anatomical Region Laterality Modality Other Scanner OTHER * SCAN-CT INTERPRETATION (11/10/2023 12:00 AM CDT) Only the most recent of3 resultswithin the time period is included. Anatomical Region Laterality Modality Other Scanner OTHER * SCAN-RADIOLOGY REPORT (11/08/2023 12:00 AM CDT) Anatomical Region Laterality Modality Other Scanner OTHER * (ABNORMAL) LIPID PANEL W REFLEX MEASURED LDL (07/27/2023 2:22 PM CDT) CHOLESTEROL,TOTAL 190 100 - 199 mg/dL 07/27/2023 9:24 PM CDT [facility] Comment: Cholesterol, Total Reference Ranges Desirable <200 mg/dL Borderline 200-239 mg/dL High >=240 mg/dL TRIGLYCERIDES 340(H) <150 mg/dL 07/27/2023 9:24 PM CDT [facility] [employer] [facility] HDL CHOLESTEROL 45 >40 mg/dL 9:24 PM CDT [facility] [employer] [facility] NON-HDL CHOLESTEROL 145(H) <145 mg/dl 07/27/2023 9:24 PM CDT [facility] CHOL/HDL RATIO 4.22 <4.50 07/27/2023 9:24 PM CDT [facility] [employer] [facility] LDL CHOLESTEROL 77 <=130 mg/dL 07/27/2023 9:24 PM CDT [facility] [employer] [facility] VLDL CHOLESTEROL 68(H) <=30 mg/dL 07/27/2023 9:24 PM CDT [facility] [employer] [facility] PROVIDER ORDERED STATUS RANDOM 07/27/2023 9:24 PM CDT [facility] [employer] [facility] Blood BLOOD SPECIMEN / Unknown Venipuncture / Unknown 07/27/2023 2:22 PM CDT 07/27/2023 2:25 PM CDT Trey Kim MD CHEMISTRY [facility] [employer] [facility] [address] [place] [id number], from Last 3 Months or Most Recently [...] 8:06 AM 11/08/2018 2:17 PM Care Teams Acute Coordinator Relationship Specialty Start Date End Date VotelJose R MD [address] [place] [id number] PCP - General Family Practice 07/23/22 Nghia Arauz MD Family Practice 12/25/10
--- OUTSIDE RECORDS SUMMARY | 2024-02-07 08:59 | XMS_ITS | Encounter Summary ---
Author Organization [facility] Address [address] [place] [address] Phone Care Team Providers Care Tamale Machine Feeder Name Role Phone Unavailable Primary Care Provider Unavailabl e Encounter Details Date Type Department Care Team (Late st Contact Info) Description 11/10/2023 Orders Only [facility] Film Room [facility] Radiology Department DANISHA [address] [address] Provider, [place] [address] Referral of patient (Primary Dx) Social History Tobacco Use Types Packs/Day Years [...] on file documented as of this encounter Results * ULT ABDOMEN/PELVIS OUTSIDE FILMS (11/10/2023 10:46 AM CDT) Narrative User, [id number] - 11/10/2023 3:20 PM CDT Outside Film Only Outside Provider RAD OUTSIDE FILMS documented in this encounter Visit Diagnoses Diagnosis Referral of patient- Primary Referral of patient without examination or treatment documented in this encounter Additional Health Concerns Infection Onset Date Last Indicated Resolved Time 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
== END 2024-02-07 08:43 | disposition home or self-care (01) ==
LOC: WOUND 08:42
PROVIDERS: PCP Family Medicine; Visit Provider Nurse Practitioner Family
DX: E11.622 Type 2 diabetes mellitus with other skin ulcer (principal); L98.412 Non-pressure chronic ulcer of buttock with fat layer exposed; Z79.4 Long term (current) use of insulin; Z79.84 Long term (current) use of oral hypoglycemic drugs
CPT/HCPCS: 97597; G0463

== ENCOUNTER 2024-02-14 08:54 | Outpatient (CLI) | payer MEDICARE, MEDICAID, SELFPAY ==
--- OUTSIDE RECORDS SUMMARY | 2024-02-14 08:57 | XMS_ITS | Clinical Summary ---
Author Organization [employer] Address [address] [facility] 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 is fully rolled out on [email or web address]. 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[facility]) Discharge Disposition: Discharged to home or self care 01/20/2024 9:54 AM CDT - 01/20/2024 11:59 PM CDT Hospital Encounter [facility] [address] [place] [address] David Cortes MD Routine, Hbo - Discharge Disposition: Discharged to home or self care 01/20/2024 Travel 01/19/2024 10:30 AM CDT - 01/19/2024 11:59 PM CDT Hospital Encounter [facility] [address] [place] [address] Nikolai Martinez MD Routine, Hbo - Discharge Disposition: Discharged to home or self care 01/19/2024 Travel 01/18/2024 10:06 AM CDT - 01/18/2024 11:59 PM CDT Hospital Encounter [facility] [address] [place] [phone] David Cortes MD Routine, Hbo - Discharge Disposition: Discharged to home or self care 01/18/2024 Travel 01/17/2024 9:42 AM CDT - 01/17/2024 11:59 PM CDT Hospital Encounter [facility] [address] [place] [address] Douglas Morris II, MD Routine, Hbo - Discharge Disposition: Discharged to home or self care 01/17/2024 Travel 01/12/2024 9:53 AM CDT - 01/12/2024 11:59 PM CDT Hospital Encounter [facility] [address] [place] [address] David Cortes MD Routine, Hbo - Discharge Disposition: Discharged to home or self care 01/12/2024 Travel 01/11/2024 10:01 AM CDT - 01/11/2024 11:59 PM CDT Hospital Encounter [facility] [address] [place] [address] Nikolai Martinez MD Routine, Hbo - Discharge Disposition: Discharged to home or self care 01/11/2024 Travel 01/07/2024 10:06 AM CDT - 01/07/2024 11:59 PM CDT Hospital Encounter [facility] [address] [place] [phone] Maggy Horan MD Routine, Hbo - Discharge Disposition: Discharged to home or self care 01/07/2024 Travel 01/06/2024 9:50 AM CDT - 01/06/2024 11:59 PM CDT Hospital Encounter [facility] [address] [place] [address] David Cortes MD Routine, Hbo - Discharge Disposition: Discharged to home or self care 01/06/2024 9:40 AM CDT - 01/06/2024 11:59 PM CDT Hospital Encounter [facility] [address] [place] [address] David Cortes MD Discharge Disposition: Discharged to home or self care 01/06/2024 Travel 01/05/2024 9:32 AM CDT - 01/05/2024 11:59 PM CDT Hospital Encounter [facility] [address] [place] [address] David Cortes MD Routine, Hbo - Discharge Disposition: Discharged to home or self care 01/05/2024 Orders Only [facility] [address] [place] [address] Talita Patel MD 01/05/2024 Travel 01/04/2024 10:16 AM CDT - 01/04/2024 11:59 PM CDT Hospital Encounter [facility] [address] [place] [address] Douglas Morris II, MD Routine, Hbo - Discharge Disposition: Discharged to home or self care 01/04/2024 Travel 01/03/2024 9:33 AM CDT - 01/03/2024 11:59 PM CDT Hospital Encounter [facility] [address] [place] [address] Narcisa Sanford MD Routine, Hbo - Discharge Disposition: Discharged to home or self care 01/03/2024 Travel 12/31/2023 1:00 PM CDT [facility] [address] [address] Afshan Patino DPM S/P foot surgery, right (Primary Dx) Discharge Disposition: Discharged to home or self care 12/31/2023 9:51 AM CDT - 12/31/2023 11:59 PM CDT Hospital Encounter [facility] [address] [address] Douglas Morris II, MD Routine, Hbo - Discharge Disposition: Discharged to home or self care 12/31/2023 Travel 12/30/2023 9:49 AM CDT - 12/30/2023 11:59 PM CDT Hospital Encounter [facility] [address] [address] David Cortes MD Routine, Hbo - Discharge Disposition: Discharged to home or self care 12/30/2023 Travel 12/29/2023 9:38 AM CDT - 12/29/2023 11:59 PM CDT Hospital Encounter [facility] [address] [address] Nikolai Martinez MD Routine, Hbo - Discharge Disposition: Discharged to home or self care 12/29/2023 Travel 12/28/2023 Telephone [facility] [address] [address] Dayanna Rodriguez RN Care Coordination (Called to discuss outpatient HBOT schedule) 12/27/2023 9:00 AM CDT Nurse Only [facility] [address] [place] [address] Afshan Patino, DPM Discharge Disposition: Discharged to home or self care 12/27/2023 Travel 12/24/2023 10:00 AM CDT [facility] [address] [place] [address] 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, LANDSCAPE ACCOUNT MANAGER, FILE MACHINE OPERATOR 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); Soft tissue infection Discharge Disposition: Discharged to home or self care 12/24/2023 Travel 12/23/2023 9:33 AM CDT - 12/23/2023 11:59 PM CDT Hospital Encounter [facility] [address] [address] Nikolai Martinez MD Routine, Hbo - Discharge Disposition: Discharged to home or self care 12/23/2023 Travel 12/22/2023 9:43 AM CDT - 12/22/2023 11:59 PM CDT Hospital Encounter [facility] [address] [place] [address] Narcisa Sanford MD Routine, Hbo - Discharge Disposition: Discharged to home or self care 12/22/2023 Travel 12/20/2023 9:34 AM CDT - 12/20/2023 11:59 PM CDT Hospital Encounter [facility] [address] [place] [address] Shawn Vines MD Routine, Hbo - Discharge Disposition: Discharged to home or self care 12/20/2023 Travel 12/17/2023 1:45 PM CDT [facility] [address] [address] Afshan Patino DPM S/P foot surgery, right (Primary Dx) Discharge Disposition: Discharged to home or self care 12/17/2023 Travel 12/14/2023 Telephone [facility] Medicine [address] [place] [address] Aretha Damon MD Follow-up 12/10/2023 10:39 AM CDT Anesthesia Event OR P4 [address] [place] [address] Clint Whiet MD Bojanov, Krasimir G, MD 12/10/2023 9:49 AM CDT - 12/10/2023 11:34 AM CDT Surgery OR P4 [address] [place] [address] Afshan Patino DPM REVISION, AMPUTATION SITE, POSSIBLE PARTIAL FOOT AMPUTATION, IRRIGATION AND DEBRIDMENT, POSSIBLE SERIAL PROCEDURES, L LOWER EXTREMITY 12/08/2023 7:35 AM CDT - 12/08/2023 9:13 AM CDT Surgery OR P4 [address] [place] [address] Che Campos DPM PARTIAL AMPUTATION FOOT 12/08/2023 7:28 AM CDT Anesthesia Event OR P4 [address] [place] [address] Dontae Higgins MD Bojanov, Krasimir G, MD 12/07/2023 3:48 PM CDT - 12/14/2023 12:38 PM CDT Hospital Encounter [facility] Orthopaedic [address] [place] [address] Eusebio Vivar MD Rajagopal, Shrikar S, MD Oeding, Afshan Torres, Igor Cosby MD Lawson, Clint Gomez MD Other acute osteomyelitis of left foot ([facility]) Discharge Disposition: Discharged/transd to home (care by home health service organization) 12/07/2023 3:07 PM CDT - 12/07/2023 11:59 PM CDT Hospital Encounter [facility] [address] [place] [address] Che Campos DPM Discharge Disposition: Discharged to home or self care 12/07/2023 2:30 PM CDT [facility] [address] [place] [address] Che Campos DPM 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); Cellulitis of left lower extremity Discharge Disposition: Discharged to home or self care 12/07/2023 Travel 12/02/2023 Nurse Triage [facility] [address] [place] [address] Angi Aranda RN Post-op Complications 11/18/2023 Orders Only Unspecified Department [place] Unknown, Provider 11/18/2023 [facility] [place] [phone] Eusebio Leon DO 11/18/2023 Orders Only Unspecified Department [place] Unknown, Provider 11/17/2023 9:01 AM CDT Anesthesia Event OR P4 [address] [place] [address] Brady Lai MD Teslaa, Polly A RN 11/17/2023 8:34 AM CDT - 11/17/2023 9:46 AM CDT Surgery OR P4 [address] [place] [address] Che Campos DPM AMPUTATION, TOE 11/17/2023 Orders Only Unspecified Department [place] Unknown, Provider 11/17/2023 Orders Only Unspecified Department [place] Unknown, Provider 11/15/2023 Orders Only Unspecified Department [place] Unknown, Provider 11/15/2023 Orders Only Unspecified Department [place] Unknown, Provider 11/14/2023 Orders Only Unspecified Department [place] Unknown, Provider 11/14/2023 Orders Only Unspecified Department [place] Unknown, Provider 11/14/2023 Orders Only Unspecified Department [place] Unknown, Provider 11/10/2023 2:28 PM CDT - 11/25/2023 12:02 PM CDT Hospital Encounter [facility] Surgery/Trauma/Chinedu ro [address] [place] [address] Jessica Madrigal MD Gayken, Jon R, MD 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[facility]) Discharge Disposition: Discharged/transd to SNF with Medicare certification from Last 3 Months Immunizations Name Administration [...] Other acute osteomyelitis of left foot (CMS/HHS) REVISION, AMPUTATION SITE, LOWER EXTREMITY Urgent (< [...] CDT Other acute osteomyelitis of left foot ([facility]) PC CULTURE FUNGI ISOLATION W-WO PRESUMPTIVE ID SKIN OTH Routine 12/08/2023 7:51 AM CDT PC CULTURE SPECIMEN, ANAEROBIC Routine 12/08/2023 7:51 AM CDT PC CULTURE,BACTERIAL,DEF INITIVE,AEROBIC ANY SOURCE Routine 12/08/2023 7:51 AM CDT PC CULTURE,BACTERIAL,DEF INITIVE,AEROBIC ANY SOURCE Routine 12/08/2023 7:51 AM CDT Other acute osteomyelitis of left foot ([facility]) PC CULTURE FUNGI ISOLATION W-WO PRESUMPTIVE ID SKIN OTH Routine 12/08/2023 7:51 AM CDT Other acute osteomyelitis of left foot ([facility]/HHS) PC CULTURE SPECIMEN, ANAEROBIC Routine 12/08/2023 7:51 AM CDT Other acute osteomyelitis of left foot ([facility]) POC GLUCOSE Routine 12/08/2023 7:22 AM CDT AMPUTATION FOOT Urgent (< 48 hrs) 12/08/2023 7:12 AM CDT Other acute osteomyelitis of left foot ([facility]) PC CULTURE,BACTERIAL,DEF INATIVE,AEROBIC;BLOOD STAT 12/07/2023 4:05 PM [...] Routine 12/07/2023 3:23 PM CDT 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 POC Glucose 323(H) 70 - 100 mg/dL [facility] Blood 01/19/2024 12:2 2 PM CDT Nikolai Martinez MD LABORATORY [facility] [address] [place] [address], * HBO ANGIOGRAPHY EXTREMITY UNILATERAL (01/06/2024 9:40 [...] 5:24 PM CDT) Only the most recent of4 resultswithin the time period is included. Pathologist [facility] Vancomycin 17.0 mcg/mL [facility] Comment:Expected Range (Trou gh): 10-20 mcg/ml Blood 12/13/2023 5:24 PM CDT 12/13/2023 5:46 PM CDT Narrative [facility] - 12/13/2023 6:34 PM CDT Please ensure trough level drawn prior to next vancomycin dose. Thank you Peak or trough:->Trough Eusebio Perez PharmD LABORATORY [facility] [address] [address] * (ABNORMAL) CBC WITH PLTS/AUTO DIFF (12/11/2023 5:50 AM CDT) Only the most recent of7 resultswithin the time period is included. WBC 8.72 4.00 - 10.00 k/cmm [facility] RBC 3.82(L) 4.60 - 6.00 m/cmm [facility] Hgb 10.6(L) 13.1 - 17.5 g/dL [facility] Hematocrit 32.4(L) 40.0 - 51.0 % [facility] MCV 84.8 80.0 - 100.0 fL [facility] MCH 27.7 25.0 - 32.0 pg [facility] MCHC 32.7 31.0 - 36.0 g/dL [facility] RDW 13.5 11.5 - 14.5 % [facility] Plt 400 150 - 400 k/cmm [facility] MPV 9.3 6.5 - 12.5 fL [facility] Automated Abs Neutrophil 4.22 1.70 - 6.50 k/cmm [facility] Comment:Preliminary ANC, Fin al Result to Follow Abs Immature Granulocyte 0.09 0.00 - 0.09 k/cmm [facility] Comment:The Immature Granulo cyte Absolute count contains metamyelocytes and myelocytes. Abs Neutrophil 4.22 1.70 - 6.50 k/cmm [facility] Abs Lymphocyte 2.59 0.80 - 4.00 k/cmm [facility] Abs Monocyte 1.00 0.20 - 1.00 k/cmm [facility] Abs Eosinophil 0.79(H) 0.00 - 0.60 k/cmm [facility] Abs Basophil 0.03 0.00 - 0.20 k/cmm [facility] Blood 12/11/2023 5:50 AM CDT 12/11/2023 6:26 AM CDT Igor Glover MD LABORATORY [facility] [address] [address] * (ABNORMAL) PANEL BASIC METABOLIC (BMP) (12/11/2023 5:50 AM CDT) Only the most recent of14 resultswithin the time period is included. CO2 25 22 - 30 mmol/L [facility] Glucose 178(H) 70 - 100 mg/dL [facility] BUN 9 6 - 20 mg/dL [facility] Creatinine 0.92 0.70 - 1.25 mg/dL [facility] Calcium 9.0 8.6 - 10.0 mg/dL [facility] Sodium 136 135 - 148 mmol/L [facility] Potassium 4.1 3.5 - 5.3 mmol/L [facility] Chloride 100 92 - 108 mmol/L [facility] eGFR (2020 CKD-EPI) 105 >=60 ml/min/1.7 3m2 [facility] Comment: The estimated glomerular filtration rate (eGFR) was calculated using the CKD-EPI 2020 creatinine equation, which does not include race as a factor. This equation is validated in individuals 18 years of age and older, and eGFR is normalized to a body surface area of 1.73m^2. AnGap 11 8 - 16 mmol/L [facility] Blood 12/11/2023 5:50 AM CDT 12/11/2023 6:25 AM CDT Igor Glover MD LABORATORY [facility] [address] [address] * XR CHEST 2 VIEWS PA + [...] ?12/10/2023 11:07 CDT ? Ordering Physician: ? AFSHAN PATINO Received Date: ?12/10/2023 12:07 CDT ? Accession Number: ? [id number] ? Surgical Pathology Final Report Specimen Type: [...] Regalado M.D. Attending Pathologist. DDB/DDB 12.10.2023 13:39 [facility] AP Specimen FOOT STRUCTURE / Unknown 12/10/2023 11:07 AM CDT Comment:OR: Routine gross an d microscopic examination Tissue: 1st metatarsel left foot, cut margin Site: foot Additional clinical information: Afshan Patino DPM LAB PATHOLOGY [facility] [address] [address] * HBO TCO2 MEASUREMENT COMPLETE (12/09/2023 10:25 [...] Reg 2002; 10:198-207. Bridget QUIÑONEZ et al. [facility] 2009, Vol. 36(1). ? [place] 07/27/13 Afshan Shafer PA-C HYPERBARIC CHAMBE R * (ABNORMAL) SED RATE (ESR) (12/08/2023 4:47 PM CDT) Only the most recent of2 resultswithin the time period is included. Sed Rate 120(H) 2 - 10 mm/hr [facility] Blood 12/08/2023 4:47 PM CDT 12/08/2023 5:07 PM CDT Afshan Shafer PA-C LABORATORY [facility] [address] [address] * (ABNORMAL) GLYCOSYLATED HGB - A1C (12/08/2023 4:47 PM CDT) Hemoglobin A1C 8.5(H) 4.0 - 5.6 % [facility] Comment: Increased risk for diabetes (prediabetes): 5.7-6.4% Diabetes >=6.5% In the absence of unequivocal hyperglycemia, diagnosis requires two abnormal test results (i.e. HbA1c and glucose) or two abnormal results from specimens collected at two different timepoints. The presence of some hemoglobin variants or red cell disorders may interfere with the measurement of hemoglobin A1c (HbA1c). Estimated Average Glucose 197(H) 68 - 114 [facility] Comment: The estimated Average Glucose (eAG) was calculated using an equation derived from a study of 507 adults with type 1, type 2, or no diabetes. Minority populations were underrepresented and children were not included. The eAG is not equivalent to a fasting glucose concentration. Blood 12/08/2023 4:47 PM CDT 12/08/2023 5:07 PM CDT Narrative [facility] - 12/08/2023 6:01 PM CDT If not done in the last 30 days. Afshan Shafer PA-C LABORATORY [facility] [address] [address] * (ABNORMAL) C-REACTIVE PROTEIN (12/08/2023 4:47 PM CDT) Only the most recent of2 resultswithin the time period is included. C-Reactive Protein 77(H) <=4 mg/L [facility] Blood 12/08/2023 4:47 PM CDT 12/08/2023 5:07 PM CDT Afshan Shafer PA-C LABORATORY [address] [address] * (ABNORMAL) CBC WITH PLATELET (12/08/2023 4:47 PM CDT) Only the most recent of6 resultswithin the time period is included. WBC 10.39(H) 4.00 - 10.00 k/cmm [facility] RBC 3.59(L) 4.60 - 6.00 m/cmm [facility] Hgb 9.8(L) 13.1 - 17.5 g/dL [facility] Hematocrit 30.8(L) 40.0 - 51.0 % [facility] MCV 85.8 80.0 - 100.0 fL [facility] MCH 27.3 25.0 - 32.0 pg [facility] MCHC 31.8 31.0 - 36.0 g/dL [facility] RDW 13.5 11.5 - 14.5 % [facility] Plt 314 150 - 400 k/cmm [facility] MPV 9.3 6.5 - 12.5 fL [facility] Blood 12/08/2023 4:47 PM CDT 12/08/2023 5:07 PM CDT Afshan Shafer PA-C LABORATORY [facility] [address] [address] * (ABNORMAL) TISSUE CULTURE:INCLUDES GRAM STAIN (12/08/2023 7:51 AM CDT) Only the most recent of4 resultswithin the time period is included. Final Report Positive Culture Few METHICILLIN RESISTANT Staphylococcus aureus (MRSA) isolated. 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 For susceptibility, see previous report on culture from wound culture collected 12/07/23. (POS) [facility] Organism METHICILLIN RESISTANT STAPHYLOCOCCUS AUREUS (MRSA)(POS) [facility] Gram Stain Report Corrected Report Positive Gram stain Rare PMN's seen. Rare gram positive cocci. Gram stain electronically reported to and acknowledged by: Dr. Healy Marker from OR at ??12/08/2023 10:09:09 by Jacklyn Easley MLS. Removed Pleomorphic gram variable bacilli from report. Results electronically reported to and acknowledged by: [facility]. Igor Glover [facility] [place] 12/09/2023 12:48:27. Elizabeth Ronaldo MLS. (POS) [facility] Bone STRUCTURE OF LEFT FOOT / Unknown 12/08/2023 7:51 AM CDT 12/08/2023 9:00 AM CDT Comment:2. Bone first metata rsal left foot Che Mullent DPM LAB MICROBIOLOGY Performing Organization Address [facility] Co de Phone Number [address] [address] * FUNGUS CULTURE:INCLUDES SUHAS (12/08/2023 7:51 AM CDT) Only the most recent of4 resultswithin the time period is included. Final Report No fungus isolated. [facility] SUHAS Prep No fungal elements seen. [facility] Bone STRUCTURE OF LEFT FOOT / Unknown 12/08/2023 7:51 AM CDT 12/08/2023 9:00 AM CDT Comment:2. Bone first metata rsal left foot Chekatelin Jonbitt DPM LAB MICROBIOLOGY Performing Organization Address [facility] de Phone Number [address] [address] * ANAEROBE CULTURE (12/08/2023 7:51 AM CDT) Only the most recent of4 resultswithin the time period is included. Final Report No anaerobes isolated. [facility] Bone STRUCTURE OF LEFT FOOT / Unknown 12/08/2023 7:51 AM CDT 12/08/2023 9:00 AM CDT Comment:2. Bone first metata rsal left foot Che Brian Beth DPM LAB MICROBIOLOGY Performing Organization Address [facility] Co de Phone Number [address] [address] * EXTRA TUBE - DARK GREEN (12/07/2023 4:05 PM CDT) DARK GREEN TUBE Stored [facility] Comment:Dark Green tubes (Li thium Heparin) are stored in the lab for 1 day from the collection date. Blood 12/07/2023 4:05 PM CDT 12/07/2023 4:24 PM CDT Eusebio Vivar MD LABORATORY Performing Organization Address City/[facility] Co de Phone Number [facility] [address] [address] * EXTRA TUBE - BLUE (12/07/2023 4:05 PM CDT) BLUE TUBE [facility] Comment:Blue top(Sodium citr ate) tubes are kept for 3 days from the collection date. Blood 12/07/2023 4:05 PM CDT 12/07/2023 4:24 PM CDT Eusebio Vivar MD LABORATORY Performing Organization Address [facility] de Phone Number [facility] [address] [address] * (ABNORMAL) ED CHEMISTRY LABS(NA,K,CL,CO2,GLU,CREAT,CA-IONIZED,ANION GAP) (12/07/2023 4:05 PM CDT) Pathologist [facility] Sodium 139 135 - 148 mmol/L [facility] Chloride 97 92 - 108 mmol/L [facility] AnGap 15 8 - 16 mmol/L [facility] Glucose 284(H) 70 - 100 mg/dL [facility] ICA, Actual 4.89 4.40 - 5.20 mg/dL [facility] [facility], pH Corrected 4.74 4.40 - 5.20 mg/dL [facility] Creatinine 1.26(H) 0.70 - 1.25 mg/dL [facility] BICARB 26 22 - 26 mEq/L [facility] eGFR (2020 CKD-EPI) 72 >=60 ml/min/1.7 3m2 [facility] Comment: The estimated glomerular filtration rate (eGFR) was calculated using the CKD-EPI 2020 creatinine equation, which does not include race as a factor. This equation is validated in individuals 18 years of age and older, and eGFR is normalized to a body surface area of 1.73m^2. Potassium 4.5 3.5 - 5.3 mmol/L [facility] Blood 12/07/2023 4:05 PM CDT 12/07/2023 4:27 PM CDT Eusebio Vivar MD LABORATORY Performing Organization Address [facility] Co de Phone Number [facility] [address] [address] * LACTATE (LACTIC ACID) (12/07/2023 4:05 PM CDT) Lactate 2.1 0.7 - 2.1 mmol/L [facility] Blood 12/07/2023 4:05 PM CDT 12/07/2023 4:27 PM CDT Narrative [facility] - 12/07/2023 4:27 PM CDT Send specimen on ice! Eusebio Vivar MD LABORATORY Performing Organization Address [facility] Co de Phone Number [facility] [address] [address] * BLOOD AEROBIC/ANAEROBIC CULTURE (12/07/2023 4:05 PM CDT) Final Report No growth after 5 days. [facility] Blood (Peripheral) 12/07/2023 4:05 PM CDT 12/07/2023 7:55 PM CDT Eusebio Vivar MD LAB MICROBIOLOGY Performing Organization Address [facility] Co de Phone Number [facility] [address] [address] * (ABNORMAL) WOUND CULTURE:GRAM STAIN OPTIONAL (12/07/2023 3:00 PM CDT) Final Report Rare METHICILLIN RESISTANT Staphylococcus aureus (MRSA) isolated. 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 Rare Corynebacterium striatum group isolated. A member of the diphtheroid bacilli. (POS) [facility] Organism METHICILLIN RESISTANT STAPHYLOCOCCUS AUREUS (MRSA)(POS) [facility] Organism CORYNEBACTERIUM STRIATUM GROUP(POS) [facility] Gram Stain Report No PMN's seen. No organisms seen. [facility] Swab STRUCTURE OF LEFT FOOT / Unknown 12/07/2023 3:00 PM CDT 12/07/2023 5:23 PM CDT Narrative [facility] - 12/10/2023 10:38 AM CDT Left [...] (MRSA) Vancomycin MICROSCAN JORDY 1: Sensitive Che Torres Beth [facility] MICROBIOLOGY [facility] [address] [address] * (ABNORMAL) CYSTATIN C (11/22/2023 9:23 AM CDT) Only the most recent of2 resultswithin the time period is included. Cystatin C 1.43(H) 0.61 - 0.95 mg/L [facility] eGFR by Cystatin C 51(L) >=60 ml/min/1.7 3m2 [facility] Comment: Estimated GFR calculated using the CKD-EPI Cystatin C (2012) equation. Stage ? Description ?eGFR Range ??1.......Normal or increased eGFR.......90 or Greater ??2.......Mildly decreased eGFR..........60-89 ??3.......Moderately decreased eGFR......30-59 ??4.......Severely decreased eGFR........15-29 ??5.......Kidney Failure.................Less than 15 Blood 11/22/2023 9:23 AM CDT 11/22/2023 2:05 PM CDT Zac Jackson MD LABORATORY Performing Organization Address [facility] Co de Phone Number [facility] [address] [address] * TELEMETRY STRIPS (11/18/2023 9:35 PM CDT) Only the most recent of9 resultswithin the time period is included. Narrative 11/18/2023 9:35 PM CDT Ordered by an unspecified provider. Provider Unknown RAD ECHO * ANTI XA ASSAY LMW HEPARIN (11/17/2023 11:47 AM CDT) Anti XA LMW <0.04 IU/mL [facility] Comment: Anti Xa Assay LMW Heparin Therapeutic Ranges: 0.4-1.1 IU/mL for twice daily 1.0-2.0 IU/mL for once daily Blood 11/17/2023 11:4 7 AM CDT 11/17/2023 12:01 PM CDT Zac Jackson MD LABORATORY Performing Organization Address [facility] Co de Phone Number [facility] [address] [address] * AFB CULTURE:INCLUDES AFB SMEAR (11/17/2023 9:35 AM CDT) Only the most recent of2 resultswithin the time period is included. Final Report No acid fast bacilli isolated. [facility] Acid Fast Stain No acid fast bacilli seen. [facility] Tissue TOE STRUCTURE / Unknown 11/17/2023 9:35 AM CDT Che Campos DPM LAB MICROBIOLOGY Performing Organization Address [facility] Co de Phone Number [facility] [address] [address] * M TUBERCULOSIS AMPLIFICATION (11/17/2023 9:32 AM CDT) Final Report M. tuberculosis complex DNA not detected. [facility] Tissue TOE STRUCTURE / Unknown 11/17/2023 9:32 AM CDT 11/18/2023 9:56 AM CDT Comment:1: Left hallux soft tissue dirty Narrative [facility] - 11/18/2023 2:41 PM CDT This assay uses PCR nucleic acid amplification to detect Mycobacterium tuberculosis complex DNA. ??This test was developed and its performance characteristics determined by [facility]. ??It has not been cleared or approved by the U.S. Food and Drug Administration. ??FDA does not require this test to go through premarket FDA review. ??This test is used for clinical purposes. ??It should not be regarded as investigational or for research. ??[facility] is certified under the Clinical Laboratory Improvement Amendments of 1988 (CLIA) as qualified to perform high complexity clinical laboratory testing. Che Campos DP LAB MICROBIOLOGY Performing Organization Address [facility] de Phone Number [facility] [address] [address] * ULT ARTERIAL LOWER EXTREMITY LEFT (11/17/2023 [...] AM CDT) Hep C Lilly Nonreactive Nonreactive [facility] Comment:Performance characte ristics have not been established with this test on patients less than 10 years of age. Blood 11/15/2023 7:39 AM CDT 11/15/2023 7:58 AM CDT Zac Jackson MD LABORATORY Performing Organization Address City/[facility]/ZIP Co de Phone Number [facility] [address] [address] * HIV COMBO (11/15/2023 7:39 AM CDT) HIV Antigen-Antibody Nonreactive Nonreactive [facility] Comment:Performance characte ristics have not been established with this test on patients less than 2 years of age. Blood 11/15/2023 7:39 AM CDT 11/15/2023 7:58 AM CDT Zac Jackson MD LABORATORY Performing Organization Address [facility] Co de Phone Number [facility] [address] [address] * (ABNORMAL) CREATININE, SERUM (11/15/2023 7:39 AM CDT) Creatinine 2.83(H) 0.70 - 1.25 mg/dL [facility] eGFR (2020 CKD-EPI) 27(L) >=60 ml/min/1.7 3m2 [facility] Comment: The estimated glomerular filtration rate (eGFR) was calculated using the CKD-EPI 2020 creatinine equation, which does not include race as a factor. This equation is validated in individuals 18 years of age and older, and eGFR is normalized to a body surface area of 1.73m^2. Blood 11/15/2023 7:39 AM CDT 11/15/2023 7:58 AM CDT Shani Shaw MD LABORATORY Performing Organization Address City/[facility]/ZIP Co de Phone Number [facility] [address] [place] [address] * (ABNORMAL) PROTEIN TO CREAT RATIO,URINE (11/14/2023 9:58 AM CDT) [facility] TPU 22(H) 0 - 11 mg/dL [facility] Creat Urine 89 30 - 125 mg/dL [facility] Protein to Creat Ratio, Ur 0.25(H) 0.00 - 0.06 mg/mg [facility] Urine 11/14/2023 9:58 AM CDT 11/14/2023 10:06 AM CDT Zac Jackson MD LABORATORY Performing Organization Address City/[facility]/ZIP Co de Phone Number [facility] [address] [address] * (ABNORMAL) URINALYSIS,TOTAL (11/14/2023 9:58 AM CDT) [facility] Color YELLOW YELLOW [facility] Appearance CLEAR CLEAR [facility] Urine Glucose 500(A) NEGATIVE mg/dL [facility] Bili UA NEGATIVE NEGATIVE [facility] Ketones NEGATIVE NEGATIVE [facility] Specific [place] 1.012 1.003 - 1.030 [facility] Blood Ur NEGATIVE Neg-Trace [facility] PH Urine 5.5 5.0 - 7.0 [facility] Protein Ur TRACE Neg-Trace [facility] Urobilinogen NORMAL NORMAL EU/dL [facility] Nitrite Ur NEGATIVE NEGATIVE [facility] Leuk Est NEGATIVE Neg-Trace [facility] WBC Ur 0-5 0 - 5 perHPF [facility] RBC Ur 0-3 0 - 3 perHPF [facility] Mucus 1+ perLPF [facility] Urinalysis Performed at: [facility] Urine 11/14/2023 9:58 AM CDT 11/14/2023 10:06 AM CDT Zac Jackson MD LABORATORY Performing Organization Address City/[facility]/ZIP Co de Phone Number [facility] [address] [address] * PHOSPHORUS (11/14/2023 5:30 AM CDT) Phosphorus 4.3 2.5 - 4.5 mg/dL [facility] Blood 11/14/2023 5:30 AM CDT 11/14/2023 5:56 AM CDT Zac Jackson MD LABORATORY Performing Organization Address City/[facility] Co de Phone Number [facility] [address] [address] * MAGNESIUM (11/14/2023 5:30 AM CDT) Magnesium 2.4 1.6 - 2.6 mg/dL [facility] Blood 11/14/2023 5:30 AM CDT 11/14/2023 5:56 AM CDT Zac Jackson MD LABORATORY Performing Organization Address [facility] Co de Phone Number [facility] [address] [address] from Last 3 Months Additional Health Concerns Infection Onset Date Last Indicated MRSA 11/17/2023 12/08/2023 Advance Directives For more information, please contact: [phone] * Full Code (Latest Code Status on [...]
--- OUTSIDE RECORDS SUMMARY | 2024-02-14 08:58 | XMS_ITS | Encounter Summary ---
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 They will be delivered to patient once they are ready. He is to begin wearing diabetic shoes and inserts once they arrive -There are no restrictions from our standpoint for the patient -IN paperwork completed and returned to patient Return [...] He is hoping he can move his mcc. 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
--- OUTSIDE RECORDS SUMMARY | 2024-02-14 08:58 | XMS_ITS | Encounter Summary ---
Author Organization [facility] Address [address] [place] [address] Phone Care Team Providers Care Network Professional Name Role Phone Unavailable Primary Care Provider Unavailabl e Encounter Details Date Type Department Care Team (Latest Contact Info) Description 01/17/2024 9:42 AM CDT - 01/17/2024 11:59 PM CDT Hospital Encounter [facility]baric [address] [facility] [address] [place] [address] Masters, Douglas Osuna II, MD [address] [facility] [address] [place], [place] [id number] Routine, Abb - [phone] Discharge Disposition: Discharged to home or self [...] multiple numbers for his convenience locally in [place] for evaluation. HPI, problem list, nursing notes, [...] hesitate to call the Hyperbaric Department at [phone] during clinic hours or page c application developer staff with any updates, questions, or concerns. [...] POC Glucose 288(H) 70 - 100 mg/dL [facility] Blood 01/17/2024 12:1 9 PM CDT Douglas Morris II, MD LABORATORY [facility] [address] [place] [address], * (ABNORMAL) POC GLUCOSE (01/17/2024 9:59 AM CDT) POC Glucose 323(H) 70 - 100 mg/dL [facility] Blood 01/17/2024 9:59 AM CDT Narrative Authorizing Provider Result Kiki Morris II, MD LABORATORY Performing Organization Address City/State/[facility] Co de Phone Number [facility] [address] [place] [phone], documented in this encounter Visit Diagnoses Diagnosis Soft tissue infection- Primary Unspecified infectious and parasitic diseases Other acute osteomyelitis of left foot ([facility]) documented in this encounter Administered Medications Inactive [...]
--- OUTSIDE RECORDS SUMMARY | 2024-02-14 08:58 | XMS_ITS | Referral Summary ---
Author Organization [employer] Address [address] 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[facility]) Discharge Disposition: Discharged to home or self care 01/19/2024 Travel 01/19/2024 10:30 AM CDT - 01/19/2024 11:59 PM CDT Hospital Encounter [facility] [address] [place] [address] Nikolai Martinez MD Routine, Hbo - Discharge Disposition: Discharged to home or self care 01/18/2024 Travel 01/18/2024 10:06 AM CDT - 01/18/2024 11:59 PM CDT Hospital Encounter [facility] [address] [place] [address] David Cortes MD Routine, Hbo - Discharge Disposition: Discharged to home or self care 01/17/2024 Travel 01/17/2024 9:42 AM CDT - 01/17/2024 11:59 PM CDT Hospital Encounter [facility] [address] [place] [address] Douglas Morris II, MD Routine, Hbo - Discharge Disposition: Discharged to home or self care 01/12/2024 Travel 01/12/2024 9:53 AM CDT - 01/12/2024 11:59 PM CDT Hospital Encounter [facility] [address] [place] [address] David Cortes MD Routine, Hbo - Discharge Disposition: Discharged to home or self care 01/11/2024 Travel 01/11/2024 10:01 AM CDT - 01/11/2024 11:59 PM CDT Hospital Encounter [facility] [address] [place] [address] Nikolai Martinez MD Routine, Hbo - Discharge Disposition: Discharged to home or self care 01/07/2024 Travel 01/07/2024 10:06 AM CDT - 01/07/2024 11:59 PM CDT Hospital Encounter [facility] [address] [place] [address] Maggy Horan MD Routine, Hbo - Discharge Disposition: Discharged to home or self care 01/06/2024 Travel 01/06/2024 9:40 AM CDT - 01/06/2024 11:59 PM CDT Hospital Encounter [facility] [address] [place] [address] David Cortes MD Discharge Disposition: Discharged to home or self care 01/06/2024 9:50 AM CDT - 01/06/2024 11:59 PM CDT Hospital Encounter [facility] [address] [place] [address] David Cortes MD Routine, Hbo - Discharge Disposition: Discharged to home or self care 01/05/2024 Orders Only [facility] [address] [place] [address] Talita Patel MD 01/05/2024 Travel 01/05/2024 9:32 AM CDT - 01/05/2024 11:59 PM CDT Hospital Encounter [facility] [address] [place] [address] David Cortes MD Routine, Hbo - Discharge Disposition: Discharged to home or self care 01/04/2024 Travel 01/04/2024 10:16 AM CDT - 01/04/2024 11:59 PM CDT Hospital Encounter [facility] [address] [address] Douglas Morris II, MD Routine, Hbo - Discharge Disposition: Discharged to home or self care 01/03/2024 Travel 01/03/2024 9:33 AM CDT - 01/03/2024 11:59 PM CDT Hospital Encounter [facility] [address] [place] [address] Narcisa Sanford MD Routine, Hbo - Discharge Disposition: Discharged to home or self care 12/31/2023 Travel 12/31/2023 9:51 AM CDT - 12/31/2023 11:59 PM CDT Hospital Encounter [facility] [address] [place] [address] Douglas Morris II, MD Routine, Hbo - Discharge Disposition: Discharged to home or self care 12/31/2023 1:00 PM CDT [facility] [address] [address] Afshan Patino DPM S/P foot surgery, right (Primary Dx) Discharge Disposition: Discharged to home or self care 12/30/2023 Travel 12/30/2023 9:49 AM CDT - 12/30/2023 11:59 PM CDT Hospital Encounter [facility] [address] [place] [address] David Cortes MD Routine, Hbo - Discharge Disposition: Discharged to home or self care 12/29/2023 Travel 12/29/2023 9:38 AM CDT - 12/29/2023 11:59 PM CDT Hospital Encounter [facility] [address] [place] [address] Nikolai Martinez MD Routine, Hbo - Discharge Disposition: Discharged to home or self care 12/28/2023 Telephone [facility] [address] [place] [address] Dayanna Rodriguez RN Care Coordination (Called to discuss outpatient HBOT schedule) 12/27/2023 Travel 12/27/2023 9:00 AM CDT Nurse Only [facility] [address] [place] [address] Afshan Patino DPM Discharge Disposition: Discharged to home or self care 12/24/2023 Travel 12/24/2023 10:00 AM CDT [facility] [address] [place] [address] 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, PRE 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, FIRST CRUSHER 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); Soft tissue infection Discharge Disposition: Discharged to home or self care 12/23/2023 Travel 12/23/2023 9:33 AM CDT - 12/23/2023 11:59 PM CDT Hospital Encounter [facility] [address] [place] [address] Nikolai Martinez MD Routine, Hbo - Discharge Disposition: Discharged to home or self care 12/22/2023 Travel 12/22/2023 9:43 AM CDT - 12/22/2023 11:59 PM CDT Hospital Encounter [facility] [address] [place] [address] Narcisa Sanford MD Routine, Hbo - Discharge Disposition: Discharged to home or self care 12/20/2023 Travel 12/20/2023 9:34 AM CDT - 12/20/2023 11:59 PM CDT Hospital Encounter [facility] [address] [place] [address] Shawn Vines MD Routine, Hbo - Discharge Disposition: Discharged to home or self care 12/17/2023 Travel 12/17/2023 1:45 PM CDT [facility] [address] [address] Afshan Patino DPM S/P foot surgery, right (Primary Dx) Discharge Disposition: Discharged to home or self care 12/14/2023 Telephone [facility] Medicine [address] [place] [address] Aretha Damon MD Follow-up 12/07/2023 3:48 PM CDT - 12/14/2023 12:38 PM CDT Hospital Encounter [facility]opaedic [address] [place] [address] Eusebio Vivar MD Rajagopal, Shrikar S, MD Oeding, Afshan Torres, Igor Cosby MD Lawson, Michael J, MD Other acute osteomyelitis of left foot ([facility]) Discharge Disposition: Discharged/transd to home (care by home health service organization) 12/10/2023 10:39 AM CDT Anesthesia Event [place] [facility]4 [address] [place] [address] Clint White MD Bojanov, Krasimir G, MD 12/10/2023 9:49 AM CDT - 12/10/2023 11:34 AM CDT Surgery [place] [facility] [address] [place] [address] Afshan Patino DPM REVISION, AMPUTATION SITE, POSSIBLE PARTIAL FOOT AMPUTATION, IRRIGATION AND DEBRIDMENT, POSSIBLE SERIAL PROCEDURES, L LOWER EXTREMITY 12/08/2023 7:28 AM CDT Anesthesia Event [place] [facility] [address] [place] [address] Dontae Higgins MD Bojanov, Krasimir G, MD 12/08/2023 7:35 AM CDT - 12/08/2023 9:13 AM CDT Surgery [place] [facility] [address] [place] [address] Che Campos DPM PARTIAL AMPUTATION FOOT 12/07/2023 3:07 PM CDT - 12/07/2023 11:59 PM CDT Hospital Encounter [facility] [address] [address] Che Campos DPM Discharge Disposition: Discharged to home or self care 12/07/2023 Travel 12/07/2023 2:30 PM CDT [facility] [address] [place] [address] Che Campos DPM 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); Cellulitis of left lower extremity Discharge Disposition: Discharged to home or self care 12/02/2023 Nurse Triage [facility] [address] [place] [address] Angi Aranda RN Post-op Complications 11/10/2023 2:28 PM CDT - 11/25/2023 12:02 PM CDT Hospital Encounter [facility] Surgery/Trauma/Chinedu ro [address] [place] [address] Jessica Madrigal MD Gayken, Jon R, MD 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[facility]) Discharge Disposition: Discharged/transd to SNF with Medicare certification 11/18/2023 Orders Only Unspecified Department [place] Unknown, Provider 11/18/2023 [facility] [place] [phone] Eusebio Leon DO 11/18/2023 Orders Only Unspecified Department [place] Unknown, Provider 11/17/2023 Orders Only Unspecified Department [place] Unknown, Provider 11/17/2023 Orders Only Unspecified Department [place] Unknown, Provider 11/17/2023 9:01 AM CDT Anesthesia Event [place] [facility]4 [address] [place] [address] Brady Lai MD Teslaa, Polly A RN 11/17/2023 8:34 AM CDT - 11/17/2023 9:46 AM CDT Surgery [place] P4 [address] [place] [address] [place] [address] Che Campos, CECILIA AMPUTATION, TOE 11/15/2023 Orders Only Unspecified Department [place] Unknown, Provider 11/15/2023 Orders Only Unspecified Department [place] Unknown, Provider 11/14/2023 Orders Only Unspecified Department [place] Unknown, Provider 11/14/2023 Orders Only Unspecified Department [place] Unknown, Provider 11/14/2023 Orders Only Unspecified Department [place] Unknown, Provider from Last 3 Months Allergies No known [...] 12/10/2023 Other acute osteomyelitis of left foot ([facility]) 12/07/2023 At risk for sexually transmi tted infection due to unprotected sex 11/12/2023 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[facility]) 11/10/2023 Resolved Problems Problem Noted Date Diagnosed [...] CDT Other acute osteomyelitis of left foot ([facility]) PC CULTURE FUNGI ISOLATION W-WO PRESUMPTIVE [...] acute osteomyelitis of left foot (CMS/[facility]) PC CULTURE,BACTERIAL,DEF INATIVE,AEROBIC;BLOOD STAT 12/07/2023 4:05 PM [...] Routine 12/07/2023 3:23 PM CDT 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[facility]) PC SMEAR, ROSAURA SOURCE, WITH INTERPRETATION (GRAM STAIN) Routine 12/07/2023 3:00 PM CDT 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 Vancomycin 17.0 mcg/mL [facility] Comment:Expected Range (Trou gh): 10-20 mcg/ml Blood 12/13/2023 5:24 PM CDT 12/13/2023 5:46 PM CDT Narrative [facility] - 12/13/2023 6:34 PM CDT Please ensure trough level drawn prior to next vancomycin dose. Thank you Peak or trough:->Trough Eusebio Perez PharmD LABORATORY [facility] [address] [address] * (ABNORMAL) CBC WITH PLTS/AUTO DIFF (12/11/2023 5:50 AM CDT) Only the most recent of7 resultswithin the time period is included. WBC 8.72 4.00 - 10.00 k/cmm [facility] RBC 3.82(L) 4.60 - 6.00 m/cmm [facility] Hgb 10.6(L) 13.1 - 17.5 g/dL [facility] Hematocrit 32.4(L) 40.0 - 51.0 % [facility] MCV 84.8 80.0 - 100.0 fL [facility] MCH 27.7 25.0 - 32.0 pg [facility] MCHC 32.7 31.0 - 36.0 g/dL [facility] RDW 13.5 11.5 - 14.5 % [facility] Plt 400 150 - 400 k/cmm [facility] MPV 9.3 6.5 - 12.5 fL [facility] Automated Abs Neutrophil 4.22 1.70 - 6.50 k/cmm [facility] Comment:Preliminary ANC, Fin al Result to Follow Abs Immature Granulocyte 0.09 0.00 - 0.09 k/cmm [facility] Comment:The Immature Granulo cyte Absolute count contains metamyelocytes and myelocytes. Abs Neutrophil 4.22 1.70 - 6.50 k/cmm [facility] Abs Lymphocyte 2.59 0.80 - 4.00 k/cmm [facility] Abs Monocyte 1.00 0.20 - 1.00 k/cmm [facility] Abs Eosinophil 0.79(H) 0.00 - 0.60 k/cmm [facility] Abs Basophil 0.03 0.00 - 0.20 k/cmm [facility] Blood 12/11/2023 5:50 AM CDT 12/11/2023 6:26 AM CDT Igor Glover MD LABORATORY [facility] [address] [address] * (ABNORMAL) PANEL BASIC METABOLIC (BMP) (12/11/2023 5:50 AM CDT) Only the most recent of14 resultswithin the time period is included. CO2 25 22 - 30 mmol/L [facility] Glucose 178(H) 70 - 100 mg/dL [facility] BUN 9 6 - 20 mg/dL [facility] Creatinine 0.92 0.70 - 1.25 mg/dL [facility] Calcium 9.0 8.6 - 10.0 mg/dL [facility] Sodium 136 135 - 148 mmol/L [facility] Potassium 4.1 3.5 - 5.3 mmol/L [facility] Chloride 100 92 - 108 mmol/L [facility] eGFR (2020 CKD-EPI) 105 >=60 ml/min/1.7 3m2 [facility] Comment: The estimated glomerular filtration rate (eGFR) was calculated using the CKD-EPI 2020 creatinine equation, which does not include race as a factor. This equation is validated in individuals 18 years of age and older, and eGFR is normalized to a body surface area of 1.73m^2. AnGap 11 8 - 16 mmol/L [facility] Blood 12/11/2023 5:50 AM CDT 12/11/2023 6:25 AM CDT Igor Glover MD LABORATORY [facility] [address] [address] * XR CHEST 2 VIEWS PA + [...] ?12/10/2023 12:07 CDT ? Accession Number: ? [id number] ? Surgical Pathology Final Report Specimen Type: [...] Regalado M.D. Attending Pathologist. DDB/DDB 12.10.2023 13:39 [facility] AP Specimen FOOT STRUCTURE / Unknown 12/10/2023 11:07 AM CDT Comment:OR: Routine gross an d microscopic examination Tissue: 1st metatarsel left foot, cut margin Site: foot Additional clinical information: Afshan Patino [facility] PATHOLOGY [facility] [address] [address] * HBO TCO2 MEASUREMENT COMPLETE (12/09/2023 10:25 [...] 2002; 10:198-207. Bridget QUIÑONEZ et al. [facility] 2009, Vol. 36(1). ? [place] 07/27/13 Afshan Shafer PA-C HYPERBARIC CHAMBE R * (ABNORMAL) SED RATE (ESR) (12/08/2023 4:47 PM CDT) Only the most recent of2 resultswithin the time period is included. Sed Rate 120(H) 2 - 10 mm/hr [facility] Blood 12/08/2023 4:47 PM CDT 12/08/2023 5:07 PM CDT Afshan Shafer PA-C LABORATORY [facility] [address] [address] * (ABNORMAL) GLYCOSYLATED HGB - A1C (12/08/2023 4:47 PM CDT) Hemoglobin A1C 8.5(H) 4.0 - 5.6 % [facility] Comment: Increased risk for diabetes (prediabetes): 5.7-6.4% Diabetes >=6.5% In the absence of unequivocal hyperglycemia, diagnosis requires two abnormal test results (i.e. HbA1c and glucose) or two abnormal results from specimens collected at two different timepoints. The presence of some hemoglobin variants or red cell disorders may interfere with the measurement of hemoglobin A1c (HbA1c). Estimated Average Glucose 197(H) 68 - 114 [facility] Comment: The estimated Average Glucose (eAG) was calculated using an equation derived from a study of 507 adults with type 1, type 2, or no diabetes. Minority populations were underrepresented and children were not included. The eAG is not equivalent to a fasting glucose concentration. Blood 12/08/2023 4:47 PM CDT 12/08/2023 5:07 PM CDT Narrative [facility] - 12/08/2023 6:01 PM CDT If not done in the last 30 days. Afshan Shafer PA-C LABORATORY [facility] [address] [address] * (ABNORMAL) C-REACTIVE PROTEIN (12/08/2023 4:47 PM CDT) Only the most recent of2 resultswithin the time period is included. Pathologist [facility] C-Reactive Protein 77(H) <=4 mg/L [facility] Blood 12/08/2023 4:47 PM CDT 12/08/2023 5:07 PM CDT Afshan Shafer PA-C LABORATORY [facility] [address] [address] * (ABNORMAL) CBC WITH PLATELET (12/08/2023 4:47 PM CDT) Only the most recent of6 resultswithin the time period is included. WBC 10.39(H) 4.00 - 10.00 k/cmm [facility] RBC 3.59(L) 4.60 - 6.00 m/cmm [facility] Hgb 9.8(L) 13.1 - 17.5 g/dL [facility] Hematocrit 30.8(L) 40.0 - 51.0 % [facility] MCV 85.8 80.0 - 100.0 fL [facility] MCH 27.3 25.0 - 32.0 pg [facility] MCHC 31.8 31.0 - 36.0 g/dL [facility] RDW 13.5 11.5 - 14.5 % [facility] Plt 314 150 - 400 k/cmm [facility] MPV 9.3 6.5 - 12.5 fL [facility] Blood 12/08/2023 4:47 PM CDT 12/08/2023 5:07 PM CDT Afshan Shafer PA-C LABORATORY [facility] [address] [address] * (ABNORMAL) TISSUE CULTURE:INCLUDES GRAM STAIN (12/08/2023 7:51 AM CDT) Only the most recent of4 resultswithin the time period is included. Final Report Positive Culture Few METHICILLIN RESISTANT Staphylococcus aureus (MRSA) isolated. 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 For susceptibility, see previous report on culture from wound culture collected 12/07/23. (POS) [facility] Organism METHICILLIN RESISTANT STAPHYLOCOCCUS AUREUS (MRSA)(POS) [facility] Gram Stain Report Corrected Report Positive Gram stain Rare PMN's seen. Rare gram positive cocci. Gram stain electronically reported to and acknowledged by: Dr. Healy Marker from OR at ??12/08/2023 10:09:09 by Jacklyn Easley MLS. Removed Pleomorphic gram variable bacilli from report. Results electronically reported to and acknowledged by: Dr. Igor Glover [facility] hospitalist [place] 12/09/2023 12:48:27. Elizabeth Schwartz MLS. (POS) [facility] Bone STRUCTURE OF LEFT FOOT / Unknown 12/08/2023 7:51 AM CDT 12/08/2023 9:00 AM CDT Comment:2. Bone first metata rsal left foot Che Jonbitt DPM LAB MICROBIOLOGY Performing Organization Address [facility] Co de Phone Number [address] [address] * FUNGUS CULTURE:INCLUDES SUHAS (12/08/2023 7:51 AM CDT) Only the most recent of4 resultswithin the time period is included. Final Report No fungus isolated. [facility] SUHAS Prep No fungal elements seen. [facility] Bone STRUCTURE OF LEFT FOOT / Unknown 12/08/2023 7:51 AM CDT 12/08/2023 9:00 AM CDT Comment:2. Bone first metata rsal left foot Che Mullent DPM LAB MICROBIOLOGY Performing Organization Address [facility] de Phone Number [address] [address] * ANAEROBE CULTURE (12/08/2023 7:51 AM CDT) Only the most recent of4 resultswithin the time period is included. Final Report No anaerobes isolated. [facility] Bone STRUCTURE OF LEFT FOOT / Unknown 12/08/2023 7:51 AM CDT 12/08/2023 9:00 AM CDT Comment:2. Bone first metata rsal left foot Che Brian Beht DPM LAB MICROBIOLOGY Performing Organization Address [facility] Co de Phone Number [address] [address] * EXTRA TUBE - DARK GREEN (12/07/2023 4:05 PM CDT) DARK GREEN TUBE Stored [facility] Comment:Dark Green tubes (Li thium Heparin) are stored in the lab for 1 day from the collection date. Blood 12/07/2023 4:05 PM CDT 12/07/2023 4:24 PM CDT Eusebio Vivar MD LABORATORY Performing Organization Address [facility] Co de Phone Number [facility] [address] [address] * EXTRA TUBE - BLUE (12/07/2023 4:05 PM CDT) BLUE TUBE [facility] Comment:Blue top(Sodium citr ate) tubes are kept for 3 days from the collection date. Blood 12/07/2023 4:05 PM CDT 12/07/2023 4:24 PM CDT Eusebio Vivar MD LABORATORY Performing Organization Address City/[facility] de Phone Number [facility] [address] [address] * (ABNORMAL) ED CHEMISTRY LABS(NA,K,CL,CO2,GLU,CREAT,CA-IONIZED,ANION GAP) (12/07/2023 4:05 PM CDT) Pathologist [facility] Sodium 139 135 - 148 mmol/L [facility] Chloride 97 92 - 108 mmol/L [facility] AnGap 15 8 - 16 mmol/L [facility] Glucose 284(H) 70 - 100 mg/dL [facility] ICA, Actual 4.89 4.40 - 5.20 mg/dL [facility] ICA, pH Corrected 4.74 4.40 - 5.20 mg/dL [facility] Creatinine 1.26(H) 0.70 - 1.25 mg/dL [facility] BICARB 26 22 - 26 mEq/L [facility] eGFR (2020 CKD-EPI) 72 >=60 ml/min/1.7 3m2 [facility] Comment: The estimated glomerular filtration rate (eGFR) was calculated using the CKD-EPI 2020 creatinine equation, which does not include race as a factor. This equation is validated in individuals 18 years of age and older, and eGFR is normalized to a body surface area of 1.73m^2. Potassium 4.5 3.5 - 5.3 mmol/L [facility] Blood 12/07/2023 4:05 PM CDT 12/07/2023 4:27 PM CDT Eusebio Vivar MD LABORATORY Performing Organization Address [facility] Co de Phone Number [address] [address] * LACTATE (LACTIC ACID) (12/07/2023 4:05 PM CDT) Lactate 2.1 0.7 - 2.1 mmol/L [facility] Blood 12/07/2023 4:05 PM CDT 12/07/2023 4:27 PM CDT Narrative [facility] - 12/07/2023 4:27 PM CDT Send specimen on ice! Eusebio Vivar MD LABORATORY Performing Organization Address [facility] Co de Phone Number [address] [address] * BLOOD AEROBIC/ANAEROBIC CULTURE (12/07/2023 4:05 PM CDT) Final Report No growth after 5 days. [facility] Blood (Peripheral) 12/07/2023 4:05 PM CDT 12/07/2023 7:55 PM CDT Eusebio Vivar MD LAB MICROBIOLOGY Performing Organization Address [facility] Co de Phone Number [address] [address] * (ABNORMAL) WOUND CULTURE:GRAM STAIN OPTIONAL (12/07/2023 3:00 PM CDT) Final Report Rare METHICILLIN RESISTANT Staphylococcus aureus (MRSA) isolated. 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 Rare Corynebacterium striatum group isolated. A member of the diphtheroid bacilli. (POS) [facility] Organism METHICILLIN RESISTANT STAPHYLOCOCCUS AUREUS (MRSA)(POS) [facility] Organism CORYNEBACTERIUM STRIATUM GROUP(POS) [facility] Gram Stain Report No PMN's seen. No organisms seen. [facility] Swab STRUCTURE OF LEFT FOOT / Unknown 12/07/2023 3:00 PM CDT 12/07/2023 5:23 PM CDT Narrative [facility] - 12/10/2023 10:38 AM CDT Left [...] Vancomycin MICROSCAN JORDY 1: Sensitive Che Campos [facility] LAB MICROBIOLOGY [facility] [address] [address] * (ABNORMAL) CYSTATIN C (11/22/2023 9:23 AM CDT) Only the most recent of2 resultswithin the time period is included. Cystatin C 1.43(H) 0.61 - 0.95 mg/L [facility] eGFR by Cystatin C 51(L) >=60 ml/min/1.7 3m2 [facility] Comment: Estimated GFR calculated using the CKD-EPI Cystatin C (2012) equation. Stage ? Description ?eGFR Range ??1.......Normal or increased eGFR.......90 or Greater ??2.......Mildly decreased eGFR..........60-89 ??3.......Moderately decreased eGFR......30-59 ??4.......Severely decreased eGFR........15-29 ??5.......Kidney Failure.................Less than 15 Blood 11/22/2023 9:23 AM CDT 11/22/2023 2:05 PM CDT Zac Jackson MD LABORATORY Performing Organization Address City/[facility] Co de Phone Number [facility] [address] [address] * TELEMETRY STRIPS (11/18/2023 9:35 PM CDT) Only the most recent of9 resultswithin the time period is included. Narrative 11/18/2023 9:35 PM CDT Ordered by an unspecified provider. Provider Unknown RAD ECHO * ANTI XA ASSAY LMW HEPARIN (11/17/2023 11:47 AM CDT) Anti XA LMW <0.04 IU/mL [facility] Comment: Anti Xa Assay LMW Heparin Therapeutic Ranges: 0.4-1.1 IU/mL for twice daily 1.0-2.0 IU/mL for once daily Blood 11/17/2023 11:4 7 AM CDT 11/17/2023 12:01 PM CDT Zac Jackson MD LABORATORY Performing Organization Address [facility] Co de Phone Number [facility] [address] [address] * AFB CULTURE:INCLUDES AFB SMEAR (11/17/2023 9:35 AM CDT) Only the most recent of2 resultswithin the time period is included. Final Report No acid fast bacilli isolated. [facility] Acid Fast Stain No acid fast bacilli seen. [facility] Tissue TOE STRUCTURE / Unknown 11/17/2023 9:35 AM CDT Che Campos DP LAB MICROBIOLOGY Performing Organization Address [facility] Co de Phone Number [facility] [address] [address] * M TUBERCULOSIS AMPLIFICATION (11/17/2023 9:32 AM CDT) Final Report M. tuberculosis complex DNA not detected. [facility] Tissue TOE STRUCTURE / Unknown 11/17/2023 9:32 AM CDT 11/18/2023 9:56 AM CDT Comment:1: Left hallux soft tissue dirty Narrative [facility] - 11/18/2023 2:41 PM CDT This assay uses PCR nucleic acid amplification to detect Mycobacterium tuberculosis complex DNA. ??This test was developed and its performance characteristics determined by [facility]. ??It has not been cleared or approved by the U.S. Food and Drug Administration. ??FDA does not require this test to go through premarket FDA review. ??This test is used for clinical purposes. ??It should not be regarded as investigational or for research. ??[facility] is certified under the Clinical Laboratory Improvement Amendments of 1988 (CLIA) as qualified to perform high complexity clinical laboratory testing. Che Campos DP LAB MICROBIOLOGY Performing Organization Address [facility] Co de Phone Number [facility] [address] [address] * ULT ARTERIAL LOWER EXTREMITY LEFT (11/17/2023 [...] AM CDT) Hep C Lilly Nonreactive Nonreactive [facility] Comment:Performance characte ristics have not been established with this test on patients less than 10 years of age. Blood 11/15/2023 7:39 AM CDT 11/15/2023 7:58 AM CDT Zac Jackson MD LABORATORY Performing Organization Address City/[facility] Co de Phone Number [facility] [place] [address] * HIV COMBO (11/15/2023 7:39 AM CDT) HIV Antigen-Antibody Nonreactive Nonreactive [facility] Comment:Performance characte ristics have not been established with this test on patients less than 2 years of age. Blood 11/15/2023 7:39 AM CDT 11/15/2023 7:58 AM CDT Zac Jackson MD LABORATORY Performing Organization Address [facility] Co de Phone Number [facility] [place] [address] * (ABNORMAL) CREATININE, SERUM (11/15/2023 7:39 AM CDT) Creatinine 2.83(H) 0.70 - 1.25 mg/dL [facility] eGFR (2020 CKD-EPI) 27(L) >=60 ml/min/1.7 3m2 [facility] Comment: The estimated glomerular filtration rate (eGFR) was calculated using the CKD-EPI 2020 creatinine equation, which does not include race as a factor. This equation is validated in individuals 18 years of age and older, and eGFR is normalized to a body surface area of 1.73m^2. Blood 11/15/2023 7:39 AM CDT 11/15/2023 7:58 AM CDT Shani Shaw MD LABORATORY Performing Organization Address City/[facility] Co de Phone Number [facility] [address] [address] * (ABNORMAL) PROTEIN TO CREAT RATIO,URINE (11/14/2023 9:58 AM CDT) [facility] TPU 22(H) 0 - 11 mg/dL [facility] Creat Urine 89 30 - 125 mg/dL [facility] Protein to Creat Ratio, Ur 0.25(H) 0.00 - 0.06 mg/mg [facility] Urine 11/14/2023 9:58 AM CDT 11/14/2023 10:06 AM CDT Zac Jackson MD LABORATORY Performing Organization Address City/[facility]/ZIP Co de Phone Number [facility] [address] [address] * (ABNORMAL) URINALYSIS,TOTAL (11/14/2023 9:58 AM CDT) [facility] Color YELLOW YELLOW [facility] Appearance CLEAR CLEAR [facility] Urine Glucose 500(A) NEGATIVE mg/dL [facility] Bili UA NEGATIVE NEGATIVE [facility] Ketones NEGATIVE NEGATIVE [facility] Specific [place] 1.012 1.003 - 1.030 [facility] Blood Ur NEGATIVE Neg-Trace [facility] PH Urine 5.5 5.0 - 7.0 [facility] Protein Ur TRACE Neg-Trace [facility] Urobilinogen NORMAL NORMAL EU/dL [facility] Nitrite Ur NEGATIVE NEGATIVE [facility] Leuk Est NEGATIVE Neg-Trace [facility] WBC Ur 0-5 0 - 5 perHPF [facility] RBC Ur 0-3 0 - 3 perHPF [facility] Mucus 1+ perLPF [facility] Urinalysis Performed at: [facility] Urine 11/14/2023 9:58 AM CDT 11/14/2023 10:06 AM CDT Zca Jackson MD LABORATORY [facility] [address] [address] * PHOSPHORUS (11/14/2023 5:30 AM CDT) [facility] Phosphorus 4.3 2.5 - 4.5 mg/dL [facility] Blood 11/14/2023 5:30 AM CDT 11/14/2023 5:56 AM CDT Zac Jackson MD LABORATORY Performing Organization Address [facility] Co de Phone Number [facility] [address] [address] * MAGNESIUM (11/14/2023 5:30 AM CDT) Magnesium 2.4 1.6 - 2.6 mg/dL [facility] Blood 11/14/2023 5:30 AM CDT 11/14/2023 5:56 AM CDT Zac Jackson MD LABORATORY Performing Organization Address [facility] de Phone Number [facility] [address] [address] from Last 3 Months Additional Health Concerns Infection Onset Date Last Indicated MRSA 11/17/2023 12/08/2023 Advance Directives For more information, please contact: [phone] * Full Code (Latest Code Status on [...]
--- OUTSIDE RECORDS SUMMARY | 2024-02-14 08:58 | XMS_ITS | Encounter Summary ---
Author Organization [facility] Address [address] [place] [address] Phone Care Team Providers Care Spool Hauler Name Role Phone Unavailable Primary Care Provider Unavailabl e Encounter Details Date Type Department Care Team (Late st Contact Info) Description 01/20/2024 9:54 AM CDT - 01/20/2024 11:59 PM CDT Hospital Encounter [facility] Hyperbaric [address] [facility] [address] [place], [place] [phone] SophiaDavid ward MD 701 [facility] [address] [place], [place] [address] Routine, Hbo - [phone] Discharge Disposition: Discharged to home or self [...] hesitate to call the Hyperbaric Department at [phone] during clinic hours or page quality assurance monitor final staff with any updates, questions, or concerns. Associated attestation - David Cortes MD - 01/20/2024 2:49 PM CDT Continuous attending physician supervision was provided throughout the hyperbaric oxygen treatment.I have reviewed and agree with treatment note created by the Hyperbaric Medicine Fellow, Dr. Mcconnell. David Cortes MD, 01/20/2024 2:49 PM * David Cortes MD - 01/20/2024 10:30 AM CDT [facility] HYPERBARIC MEDICINE TREATMENT SUMMARY [...] urged continued close follow up with his [employer] for local wound care and monitoring. We noted our availability should future concern of complicated wound develop or as needed surrounding and in support of surgical interventions. Please do not hesitate to call the Hyperbaric Department at [phone] during clinic hours or page quality assurance monitor final staff with any updates, questions, or concerns. Kit Mcconnell MD Hyperbaric Medicine Fellow I reviewed, edited and agree with the treatment summary. David Cortes MD, 01/20/2024 2:51 PM documented in this encounter Plan of Treatment Not on file documented as of this encounter Visit Diagnoses Diagnosis Soft tissue infection- Primary Unspecified infectious and parasitic diseases Other acute osteomyelitis of left foot ([facility]) documented in this encounter Additional Health Concerns Infection Onset Date Last Indicated Resolved Time 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
--- OUTSIDE RECORDS SUMMARY | 2024-02-14 08:58 | XMS_ITS | Encounter Summary ---
Author Organization [facility] Address [address] [place] [address] Phone Care Team Providers Care Composer Teaching Artist Name Role Phone Unavailable Primary Care Provider [...]
--- OUTSIDE RECORDS SUMMARY | 2024-02-14 08:58 | XMS_ITS | Encounter Summary ---
Author Organization [facility] Address [address] [place] [address] Phone Care Team Providers Care Restaurant Managing Partner Name Role Phone Unavailable Primary Care Provider Unavailabl e Encounter Details Date Type Department Care Team (Late st Contact Info) Description 01/18/2024 10:06 AM CDT - 01/18/2024 11:59 PM CDT Hospital Encounter [facility] Hyperbaric [address] [facility] [address] [place], [place] [address] SophiaDavid ward MD 701 [facility] [address] [place], [place] [address] Routine, Hbo - [phone] Discharge Disposition: Discharged to home or self [...] hesitate to call the Hyperbaric Department at [phone] during clinic hours or page almond huller staff with any updates, questions, or concerns. [...]
--- OUTSIDE RECORDS SUMMARY | 2024-02-14 08:58 | XMS_ITS | Encounter Summary ---
Author Organization [facility] Address [address] [place] [address] Phone Care Team Providers Care Fuel Island Attendant Name Role Phone Unavailable Primary Care Provider [...]
--- OUTSIDE RECORDS SUMMARY | 2024-02-14 08:58 | XMS_ITS | Encounter Summary ---
Author Organization [facility] Address [address] [facility] [place] [address] Phone Care Team Providers Care Truck Despatcher Name Role Phone Unavailable Primary Care Provider Unavailabl e Encounter Details Date Type Department Care Team (Latest Contact Info) Description 01/11/2024 10:01 AM CDT - 01/11/2024 11:59 PM CDT Hospital Encounter [facility] Hyperbaric [address] [place] [address] Nikolai Martinez MD 701 [facility] [address] [place], [place] [address] Gwejdby, Utk - [phone] Discharge Disposition: Discharged to home or self [...] hesitate to call the Hyperbaric Department at [phone] during clinic hours or page on call pharmacy technician staff with any updates, questions, or concerns. Mayuri Hinojosa APRN, INTERNAL AUDIT SENIOR MANAGER, 01/11/2024 12:21 PM Continuous attending physician supervision was provided throughout the hyperbaric oxygen treatment. I have reviewed and agree with the treatment note created by Nurse Practitioner: Mayuri Hinojosa APRN, DRINK MIXER. documented in this encounter Plan of Treatment Not on file documented as of this encounter Procedures Procedure Name Priority Date/Time Associated Diagnosis Comments POC GLUCOSE Routine 01/11/2024 10:00 AM CDT documented in this encounter Results * (ABNORMAL) POC GLUCOSE (01/11/2024 10:00 AM CDT) POC Glucose 362(H) 70 - 100 mg/dL [facility] Blood 01/11/2024 10:0 0 AM CDT Nikolai Martinez MD LABORATORY [facility] [address] [place] [address], documented in this encounter Visit Diagnoses Diagnosis Soft tissue infection- Primary Unspecified infectious and parasitic diseases Other acute osteomyelitis of left foot (CMS/HHS) documented in this encounter Additional Health Concerns Infection Onset Date Last Indicated Resolved Time 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
--- OUTSIDE RECORDS SUMMARY | 2024-02-14 08:58 | XMS_ITS | Encounter Summary ---
Author Organization [facility] Address [address] [place] [address] Phone Care Team Providers Care Chief Controller Station Name Role Phone Unavailable Primary Care Provider [...]
--- OUTSIDE RECORDS SUMMARY | 2024-02-14 08:58 | XMS_ITS | Encounter Summary ---
Author Organization [facility] Address [address] [facility] [place] [address] Phone Care Team Providers Care Scenic Arts Supervisor Name Role Phone Unavailable Primary Care Provider Unavailabl e Encounter Details Date Type Department Care Team (Latest Contact Info) Description 01/19/2024 10:30 AM CDT - 01/19/2024 11:59 PM CDT Hospital En[place] [facility] [place] [place] [address] [place] [address] Nikolai Martinez MD [address] [facility] [address] [place], [place] [address] Jazfioq, Zpe - [phone] Discharge Disposition: Discharged to home or self [...] hesitate to call the Hyperbaric Department at [phone] during clinic hours or page robotics application engineer staff with any updates, questions, or [...] POC GLUCOSE (01/19/2024 12:22 PM CDT) Pathologist [facility] POC Glucose 323(H) 70 - 100 mg/dL [facility] Blood 01/19/2024 12:2 2 PM CDT Nikolai Martinez MD LABORATORY Performing Organization Address City/State/[facility] Co de Phone Number [facility] [address] [place] [address], * (ABNORMAL) POC GLUCOSE (01/19/2024 9:58 AM CDT) POC Glucose 353(H) 70 - 100 mg/dL [facility] Blood 01/19/2024 9:58 AM CDT Provider Unknown LABORATORY [facility] [address] [place] [address], documented in this encounter Visit Diagnoses Diagnosis Soft tissue infection- Primary Unspecified infectious and parasitic diseases Other acute osteomyelitis of left foot (CMS/HHS) documented in this encounter Additional Health Concerns Infection Onset Date Last Indicated Resolved Time 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
--- OUTSIDE RECORDS SUMMARY | 2024-02-14 08:58 | XMS_ITS | Encounter Summary ---
Author Organization [facility] Address [address] [place] [address] Phone Care Team Providers Care Ocean Forwarder Name Role Phone Unavailable Primary Care Provider [...]
--- OUTSIDE RECORDS SUMMARY | 2024-02-14 08:58 | XMS_ITS | Encounter Summary ---
Author Organization [facility] Address [address] [place] [address] Phone Care Team Providers Care Yard General Car Supervisor Name Role Phone Unavailable Primary Care [...]
--- OUTSIDE RECORDS SUMMARY | 2024-02-14 08:58 | XMS_ITS | Encounter Summary ---
Author Organization [facility] Address [address] [place] [address] Phone Care Team Providers Care Squaring Shear Operator Name Role Phone Unavailable Primary Care [...]
--- OUTSIDE RECORDS SUMMARY | 2024-02-14 08:58 | XMS_ITS | Encounter Summary ---
Author Organization [facility] Address [address] [place] [address] Phone Care Team Providers Care Director Of Distribution Name Role Phone Unavailable Primary Care Provider [...]
--- OUTSIDE RECORDS SUMMARY | 2024-02-14 08:58 | XMS_ITS | Encounter Summary ---
Author Organization [facility] Address [address] [place] [address] Phone Care Team Providers Care Computer Processing Scheduler Name Role Phone Unavailable Primary Care Provider Unavailabl e Encounter Details Date Type Department Care Team (Late st Contact Info) Description 01/12/2024 9:53 AM CDT - 01/12/2024 11:59 PM CDT Hospital Encounter [facility] Hyperbaric [address] [facility] [address] [place], [place] [address] SophiaDavid ward MD 701 [facility] [address] [place], [place] [address] Routine, Hbo - [phone] Discharge Disposition: Discharged to home or self [...] hesitate to call the Hyperbaric Department at [phone] during clinic hours or page salesperson pianos and organs staff with any updates, questions, or concerns. [...] POC Glucose 414(H) 70 - 100 mg/dL [facility] Blood 01/12/2024 10:0 2 AM CDT David Cortes MD LABORATORY [facility] [address] [place] [address], documented in this encounter Visit Diagnoses Diagnosis Soft tissue infection- Primary Unspecified infectious and parasitic diseases Other acute osteomyelitis of left foot (CMS/HHS) documented in this encounter Additional Health Concerns Infection Onset Date Last Indicated Resolved Time 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
--- OUTSIDE RECORDS SUMMARY | 2024-02-14 08:59 | XMS_ITS | Encounter Summary ---
Author Organization [facility] Address [address] [place] [address] Phone Care Team Providers Care Wholesale And Retail Merchant Name Role Phone Unavailable Primary Care Provider Unavailabl e Reason for Visit * Reason Comments Post Op Encounter Details Date Type Department Care Team (Late st Contact Info) Description 12/31/2023 1:00 PM CDT [facility] [address] [address] Afshan Sims, DPMorelia [address] [phone] S/P foot surgery, right (Primary Dx) Discharge [...] Schizophrenia History of TBI --Patient is own [facility] Clinic plan: -Discussed postoperative course and [...] left until diabetic shoes and inserts arrive -ND paperwork completed and returned to patient Return [...]
--- OUTSIDE RECORDS SUMMARY | 2024-02-14 08:59 | XMS_ITS | Encounter Summary ---
Author Organization [facility] Address [address] [place] [address] Phone Care Team Providers Care Blood Or Blood Bank Technician Name Role Phone Unavailable Primary Care Provider Unavailabl e Encounter Details Date Type Department Care Team (Latest Contact Info) Description 12/31/2023 9:51 AM CDT - 12/31/2023 11:59 PM CDT Hospital En[place] [facility] [place] 701 [facility] [address] [place] [address] Masters, Douglas Osuna II, MD [address] [facility] [address] [place], [place] [phone] Routine, Rnt - [id number] Discharge Disposition: Discharged to home or self [...] hesitate to call the Hyperbaric Department at [phone] during clinic hours or page professional programmer analyst staff with any updates, questions, or [...] POC Glucose 295(H) 70 - 100 mg/dL [facility] Blood 12/31/2023 9:57 AM CDT Douglas [place] II, MD LABORATORY [facility] [address] [place] [address], documented in this encounter Visit Diagnoses Diagnosis Soft tissue infection- Primary Unspecified infectious and parasitic diseases Other acute osteomyelitis of left foot ([facility]/HHS) documented in this encounter Administered Medications Inactive [...]
--- OUTSIDE RECORDS SUMMARY | 2024-02-14 08:59 | XMS_ITS | Encounter Summary ---
Author Organization [facility] Address [address] [place] [address] Phone Care Team Providers Care Java Xml Developer Name Role Phone Unavailable Primary Care Provider Unavailabl e Encounter Details Date Type Department Care Team (Late st Contact Info) Description 01/05/2024 9:32 AM CDT - 01/05/2024 11:59 PM CDT Hospital Encounter [facility] Hyperbaric [address] [facility] [address] [place], [place] [phone] SophiaDavid ward MD 701 [facility] [address] [place], [place] [address] Routine, Hbo - [phone] Discharge Disposition: Discharged to home or self [...] hesitate to call the Hyperbaric Department at [phone] during clinic hours or page application packager staff with any updates, questions, or concerns. [...] POC Glucose 328(H) 70 - 100 mg/dL [facility] Blood 01/05/2024 9:54 AM CDT David Cortes MD LABORATORY [facility] [address] [place] [address], documented in this encounter Visit Diagnoses Diagnosis Soft tissue infection- Primary Unspecified infectious and parasitic diseases Other acute osteomyelitis of left foot ([facility]/HHS) documented in this encounter Additional Health Concerns Infection Onset Date Last Indicated Resolved Time 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
--- OUTSIDE RECORDS SUMMARY | 2024-02-14 08:59 | XMS_ITS | Encounter Summary ---
Author Organization [facility] Address [address] [place] [address] Phone Care Team Providers Care Photograph Printer Name Role Phone Unavailable Primary Care Provider [...]
--- OUTSIDE RECORDS SUMMARY | 2024-02-14 08:59 | XMS_ITS | Encounter Summary ---
Author Organization [facility] Address 1 [place] [address] Phone Care Team Providers Care Refining Supervisor Name Role Phone Unavailable Primary Care Provider Unavailabl e Encounter Details Date Type Department Care Team (Latest Contact Info) Description 01/03/2024 9:33 AM CDT - 01/03/2024 11:59 PM CDT Hospital Encounter [facility] Hyperbaric [address] [facility] 980 [place] [address] Narcisa Sanford MD 701 [place], [place] [address] [facility] [place] - [address] Discharge Disposition: Discharged to home or self [...] hesitate to call the Hyperbaric Department at [phone] during clinic hours or page web applications architect staff with any updates, questions, or concerns. [...] POC Glucose 305(H) 70 - 100 mg/dL [facility] - POINT OF CARE Blood 01/03/2024 9:50 AM CDT Narcisa Sanford MD LABORATORY [facility] - POINT OF CARE [address] [place] [address], documented in this encounter Visit Diagnoses Diagnosis [...]
--- OUTSIDE RECORDS SUMMARY | 2024-02-14 08:59 | XMS_ITS | Encounter Summary ---
Author Organization [facility] Address [address] [place] [address] Phone Care Team Providers Care Fabric Cutter Name Role Phone Unavailable Primary Care Provider Unavailabl e Encounter Details Date Type Department Care Team (Latest Contact Info) Description 12/29/2023 9:38 AM CDT - 12/29/2023 11:59 PM CDT Hospital Encounter [facility] Hyperbaric [address] [place] [address] Nikolai Martinez MD 701 [facility] [place], [place] [address] Xbd[facility]rm, Ujl - [id number] Discharge Disposition: Discharged to home or self [...] hesitate to call the Hyperbaric Department at [phone] during clinic hours or page configurator staff with any updates, questions, or concerns. [...] Glucose 323(H) 70 - 100 mg/dL [facility] - POINT OF CARE Blood 12/29/2023 10:0 7 AM CDT Nikolai Martinez MD LABORATORY [facility] - POINT OF CARE [address] [place] [address], documented in this encounter Visit Diagnoses Diagnosis Soft tissue infection- Primary Unspecified infectious and parasitic diseases Other acute osteomyelitis of left foot ([facility]/HHS) documented in this encounter Administered Medications [...]
--- OUTSIDE RECORDS SUMMARY | 2024-02-14 08:59 | XMS_ITS | Encounter Summary ---
Author Organization [facility] Address 701 [facility] [place] [address] Phone Care Team Providers Care Table Worker Name Role Phone Unavailable Primary Care Provider Unavailabl e Encounter Details Date Type Department Care Team (Late st Contact Info) Description 01/05/2024 Orders Only [facility] Hyperbaric [address] [place], [place] [phone] Talita Patel MD 701 [place], [place] [phone] Social History Tobacco Use Types Packs/Day Years [...]
--- OUTSIDE RECORDS SUMMARY | 2024-02-14 08:59 | XMS_ITS | Encounter Summary ---
Author Organization [facility] Address [address] [place] [address] Phone Care Team Providers Care Outreach Analyst Name Role Phone Unavailable Primary Care [...]
--- OUTSIDE RECORDS SUMMARY | 2024-02-14 08:59 | XMS_ITS | Encounter Summary ---
Author Organization [facility] Address [address] [place] [address] Phone Care Team Providers Care Counselor Camp Name Role Phone Unavailable Primary Care Provider [...]
--- OUTSIDE RECORDS SUMMARY | 2024-02-14 08:59 | XMS_ITS | Encounter Summary ---
Author Organization [facility] Address 1 [facility] [place] [address] Phone Care Team Providers Care Mail Delivery Supervisor Name Role Phone Unavailable Primary Care Provider Unavailabl e Encounter Details Date Type Department Care Team (Latest Contact Info) Description 01/07/2024 10:06 AM CDT - 01/07/2024 11:59 PM CDT Hospital Encounter [facility] Hyperbaric [address] [place] [address] Maggy Horan MD [address] [place], [place] [address] [facility] [place] - [address] Discharge Disposition: Discharged to home or self [...] hesitate to call the Hyperbaric Department at [phone] during clinic hours or page strong nitric operator staff with any updates, questions, or [...] POC Glucose 344(H) 70 - 100 mg/dL [facility] - POINT OF CARE Blood 01/07/2024 12:2 7 PM CDT Maggy Horan MD LABORATORY Performing Organization Address [facility] Co de Phone Number [facility] POINT OF CARE [address] [place], [place] [address], * (ABNORMAL) POC GLUCOSE (01/07/2024 10:20 AM CDT) POC Glucose 357(H) 70 - 100 mg/dL [facility] - POINT OF CARE Blood 01/07/2024 10:2 0 AM CDT Maggy Horan MD LABORATORY Performing Organization Address City/[facility] Co de Phone Number [facility] POINT OF CARE [address] [place] [phone], documented in this encounter Visit Diagnoses Diagnosis Soft tissue infection- Primary Unspecified infectious and parasitic diseases Other acute osteomyelitis of left foot ([facility]) documented in this encounter Additional Health Concerns Infection Onset Date Last Indicated Resolved Time 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
--- OUTSIDE RECORDS SUMMARY | 2024-02-14 08:59 | XMS_ITS | Encounter Summary ---
Author Organization [facility] Address [address] [place] [address] Phone Care Team Providers Care Horse Identifier Name Role Phone Unavailable Primary Care Provider [...]
--- OUTSIDE RECORDS SUMMARY | 2024-02-14 08:59 | XMS_ITS | Encounter Summary ---
Author Organization [facility] Address [address] [place] [address] Phone Care Team Providers Care Contact Center Professional Name Role Phone Unavailable Primary Care [...]
--- OUTSIDE RECORDS SUMMARY | 2024-02-14 08:59 | XMS_ITS | Encounter Summary ---
Author Organization [facility] Address [address] [place] [address] Phone Care Team Providers Care Wedding Planning Internship Name Role Phone Unavailable Primary Care Provider Unavailabl e Encounter Details Date Type Department Care Team (Late st Contact Info) Description 01/06/2024 9:50 AM CDT - 01/06/2024 11:59 PM CDT Hospital En[place] [facility] [place] [address] [facility] 980 [place], [place] [address] SophiaDavid ward MD 701 [facility] 825 [place], [place] [address] Routine, Hbo - [id number] Discharge Disposition: Discharged to home or self [...] hesitate to call the Hyperbaric Department at [phone] during clinic hours or page senior sales compensation analyst staff with any updates, questions, or [...] POC Glucose 308(H) 70 - 100 mg/dL [facility] - POINT OF CARE Blood 01/06/2024 9:52 AM CDT David Cortes MD LABORATORY [facility] - POINT OF CARE [address] [place] [address], documented in this encounter Visit Diagnoses Diagnosis Soft tissue infection- Primary Unspecified infectious and parasitic diseases Other acute osteomyelitis of left foot ([facility]) documented in this encounter Additional Health Concerns Infection Onset Date Last Indicated Resolved Time 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
--- OUTSIDE RECORDS SUMMARY | 2024-02-14 08:59 | XMS_ITS | Encounter Summary ---
Author Organization [facility] Address [address] [place] [address] Phone Care Team Providers Care Quality Control Supervisor Name Role Phone Unavailable Primary Care [...]
--- OUTSIDE RECORDS SUMMARY | 2024-02-14 08:59 | XMS_ITS | Encounter Summary ---
Author Organization [facility] Address [address] [place] [address] Phone Care Team Providers Care Board Setter Name Role Phone Unavailable Primary Care Provider Unavailabl e Encounter Details Date Type Department Care Team (Late st Contact Info) Description 01/06/2024 9:40 AM CDT - 01/06/2024 11:59 PM CDT Hospital Encounter [facility] Hyperbaric [address] [place], [place] [phone] David Cortes MD 701 [facility] 825 [place], [place] [phone] Discharge Disposition: Discharged to home or self [...]
--- OUTSIDE RECORDS SUMMARY | 2024-02-14 08:59 | XMS_ITS | Encounter Summary ---
Author Organization [facility] Address 701 [place] [address] Phone Care Team Providers Care Gourmet Coffee Attendant Name Role Phone Unavailable Primary Care Provider Unavailabl e Encounter Details Date Type Department Care Team (Latest Contact Info) Description 01/04/2024 10:16 AM CDT - 01/04/2024 11:59 PM CDT Hospital En[place] [facility] [place] 701 [facility] 980 [place] [address] Masters, Douglas Osuna II, MD 701 [facility] 825 [place], [place] [address] Routine, Sux - [id number] Discharge Disposition: Discharged to home or self [...] hesitate to call the Hyperbaric Department at [phone] during clinic hours or page conductor/engineer staff with any updates, questions, or concerns. [...] POC Glucose 340(H) 70 - 100 mg/dL [facility] - POINT OF CARE Blood 01/04/2024 10:0 3 AM CDT Douglas Morris II, MD LABORATORY [facility] - POINT OF CARE [address] [place] [address], documented in this encounter Visit Diagnoses Diagnosis Soft tissue infection- Primary Unspecified infectious and parasitic diseases Other acute osteomyelitis of left foot ([facility]) documented in this encounter Additional Health Concerns Infection Onset Date Last Indicated Resolved Time 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
--- OUTSIDE RECORDS SUMMARY | 2024-02-14 08:59 | XMS_ITS | Encounter Summary ---
Author Organization [facility] Address 1 [place] [address] Phone Care Team Providers Care Ict Account Manager Name Role Phone Unavailable Primary Care Provider Unavailabl e Reason for Visit * Reason Onset Date Comments Care Coordination 12/28/2023 Called to disc us outpatient HBOT schedule Encounter Details Date Type Department Care Team (Late st Contact Info) Description 12/28/2023 Telephone [facility] Hyperbaric [address] [address] Dayanna Rodriguez RN 701 [place] [address] Care Coordination (Called to discuss outpatient HBOT [...] schedule was printedand faxed to Vannesa at [phone]. She reported that she may need x 2 days to get transport set up. documented in this encounter Plan of Treatment Not on file documented as of this encounter Visit Diagnoses Not on filedocumented in this encounter Additional Health Concerns Infection Onset Date Last Indicated Resolved Time 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
--- OUTSIDE RECORDS SUMMARY | 2024-02-14 08:59 | XMS_ITS | Encounter Summary ---
Author Organization [facility] Address [address] [place] [address] Phone Care Team Providers Care Analytical Lead Name Role Phone Unavailable Primary Care Provider Unavailabl e Encounter Details Date Type Department Care Team (Late st Contact Info) Description 12/30/2023 9:49 AM CDT - 12/30/2023 11:59 PM CDT Hospital Encounter [facility] Hyperbaric [address] [facility] 980 [place], [place] [address] SophiaDavid ward MD 701 [facility] 825 [place], [place] [address] Routine, Hbo - [id number] Discharge Disposition: Discharged to home or self [...] hesitate to call the Hyperbaric Department at [phone] during clinic hours or page onsite health coach staff with any updates, questions, or concerns. [...] POC Glucose 352(H) 70 - 100 mg/dL [facility] - POINT OF CARE Blood 12/30/2023 9:54 AM CDT David Cortes MD LABORATORY [facility] - POINT OF CARE [address] [place] [address], documented in this encounter Visit Diagnoses Diagnosis Soft tissue infection- Primary Unspecified infectious and parasitic diseases Other acute osteomyelitis of left foot ([facility]) documented in this encounter Administered [...]
--- OUTSIDE RECORDS SUMMARY | 2024-02-14 08:59 | XMS_ITS | Encounter Summary ---
Author Organization [facility] Address [address] [place] [address] Phone Care Team Providers Care Market Superintendent Name Role Phone Unavailable Primary Care Provider [...]
--- OUTSIDE RECORDS SUMMARY | 2024-02-14 09:00 | XMS_ITS | Encounter Summary ---
Author Organization [facility] Address [address] [place] [address] Phone Care Team Providers Care Corporate Financial Analyst Name Role Phone Unavailable Primary Care Provider Unavailabl e Reason for Visit * Reason Comments Consult Encounter Details Date Type Department Care Team (Late st Contact Info) Description 12/24/2023 10:00 AM CDT Office [facility] [address] [phone] 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, PRODUCTION SORTER, TELECOMMUNICATION LINES REPAIRER 701 [place] [address] 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); [...] area dry. Okay to discharge to Home LONG-TERM if there is somebody who can do dressing changes daily. Appointment has been made for follow-up on 01/28/2024 documented in this encounter Progress Notes * 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 APRN, PATRICIA - 12/24/2023 10:00 AM CDT Images from the original note were not included. 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 Dictation Disclaimer: Some notes are completed with voice-recognition dictation software. Errors are generally corrected in real time. Please contact me via [employer] staff message if you note any errors [...]
--- OUTSIDE RECORDS SUMMARY | 2024-02-14 09:00 | XMS_ITS | Encounter Summary ---
Author Organization [facility] Address [address] [place] [address] Phone Care Team Providers Care Window Glazier Helper Name Role Phone Unavailable Primary Care Provider [...]
--- OUTSIDE RECORDS SUMMARY | 2024-02-14 09:00 | XMS_ITS | Encounter Summary ---
Author Organization [facility] Address [address] [place] [address] Phone Care Team Providers Care Japanese Interpreter Name Role Phone Unavailable Primary Care Provider [...] FULL BODY CHAMBER PER 30 MINUTE INTERVAL RI PHYS/QHP ATTN&SUPVJ HYPRBARIC OXYGEN TX/SESSION Routine, Hbo - 08124 Referral ID Status Reason Start Date Expiration Date V isits Requested Visits Authorized [id number] Auth Not Needed 12/20/2023 03/09/2024 30 30 Encounter Details Date Type Department Care Team (Latest Contact Info) Description 12/20/2023 9:34 AM CDT - 12/20/2023 11:59 PM CDT Hospital Encounter [facility] Hyperbaric 701 [facility] 980 [place], [place] [phone] Shawn Vines MD 701 [facility] 825 [place], [place] [address] Routine, Hbo - 79400 Discharge Disposition: Discharged to home or self [...] hesitate to call the Hyperbaric Department at [phone] during clinic hours or page avionics test technician staff with any updates, questions, or concerns. Continuous attending physician supervision was provided throughout the hyperbaric oxygen treatment.I have reviewed and agree with treatment note created by Lor Hinojosa APRN, SALES REPRESENTATIVE [employer]. Shawn Vines MD, 12/20/2023 12:49 PM documented [...] mg/dL [facility] - POINT OF CARE Blood 12/20/2023 12:2 8 PM CDT Shawn Vines MD LABORATORY Performing Organization Address City/[facility]/ZIP Co de Phone Number [facility] POINT OF [facility] 701 [place] [address], * (ABNORMAL) POC GLUCOSE (12/20/2023 10:06 AM CDT) POC Glucose 284(H) 70 - 100 mg/dL [facility] POINT OF [facility] Blood 12/20/2023 10:0 6 AM CDT Shawn Vines MD LABORATORY Performing Organization Address [facility] de Phone Number [facility] 701 [place] [address], [place] documented in this encounter Visit Diagnoses Diagnosis Soft tissue infection- Primary Unspecified infectious and parasitic diseases Other acute osteomyelitis of left foot ([facility]) documented in this encounter Administered Medications Inactive [...]
--- OUTSIDE RECORDS SUMMARY | 2024-02-14 09:00 | XMS_ITS | Encounter Summary ---
Author Organization [facility] Address [address] [place] [address] Phone Care Team Providers Care Scientific Artist Name Role Phone Unavailable Primary Care [...]
--- OUTSIDE RECORDS SUMMARY | 2024-02-14 09:00 | XMS_ITS | Encounter Summary ---
Author Organization [facility] Address [address] [place] [address] Phone Care Team Providers Care Access Rn Name Role Phone Unavailable Primary Care Provider [...] FULL BODY CHAMBER PER 30 MINUTE INTERVAL IA PHYS/QHP ATTN&SUPVJ HYPRBARIC OXYGEN TX/SESSION Routine, Hbo - [id number] Referral ID Status Reason Start Date Expiration Date V isits Requested Visits Authorized [id number] Auth Not Needed 12/20/2023 03/09/2024 30 30 Encounter Details Date Type Department Care Team (Latest Contact Info) Description 12/23/2023 9:33 AM CDT - 12/23/2023 11:59 PM CDT Hospital Encounter [facility] Hyperbaric [address] [phone] Nikolai Martinez MD 701 [place], [place] [address] Routine, Hbo - [id number] Discharge Disposition: Discharged to home or self [...] hesitate to call the Hyperbaric Department at [phone] during clinic hours or page medication aid staff with any updates, questions, or concerns. [...] POC Glucose 315(H) 70 - 100 mg/dL [facility] - POINT OF CARE Blood 12/23/2023 10:2 7 AM CDT Nikolai Martinez MD LABORATORY [facility] - POINT OF CARE 701 [place] [address], documented in this encounter Visit Diagnoses Diagnosis Soft tissue infection- Primary Unspecified infectious and parasitic diseases Other acute osteomyelitis of left foot ([facility]) documented in this encounter Additional Health Concerns Infection Onset Date Last Indicated Resolved Time 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
--- OUTSIDE RECORDS SUMMARY | 2024-02-14 09:00 | XMS_ITS | Encounter Summary ---
Author Organization [facility] Address [address] [place] [address] Phone Care Team Providers Care Direct Sales Representative Name Role Phone Unavailable Primary Care Provider Unavailabl e Reason for Visit * Reason Comments Follow-up Encounter Details Date Type Department Care Team (Late st Contact Info) Description 12/17/2023 1:45 PM CDT Office Visit [facility] [address] [address] Afshan Sims, DPMorelia [address] [address] S/P foot surgery, right (Primary Dx) Discharge [...] Schizophrenia History of TBI --Patient is own [facility] Clinic plan: -Discussed postoperative course and [...]
--- OUTSIDE RECORDS SUMMARY | 2024-02-14 09:00 | XMS_ITS | Encounter Summary ---
Author Organization [facility] Address [address] [place] [address] Phone Care Team Providers Care Hall Cleaner Name Role Phone Unavailable Primary Care Provider [...]
--- OUTSIDE RECORDS SUMMARY | 2024-02-14 09:00 | XMS_ITS | Encounter Summary ---
Author Organization [facility] Address [address] [place] [address] Phone Care Team Providers Care Space Systems Operations Manager Name Role Phone Unavailable Primary Care [...]
--- OUTSIDE RECORDS SUMMARY | 2024-02-14 09:00 | XMS_ITS | Encounter Summary ---
Author Organization [facility] Address [address] [place] [address] Phone Care Team Providers Care Retail Chain Store Area Supervisor Name Role Phone Unavailable Primary Care [...]
--- OUTSIDE RECORDS SUMMARY | 2024-02-14 09:00 | XMS_ITS | Encounter Summary ---
Author Organization [facility] Address [address] [place] [address] Phone Care Team Providers Care Landscape And Yardwork Laborer Name Role Phone Unavailable Primary Care Provider [...]
--- OUTSIDE RECORDS SUMMARY | 2024-02-14 09:00 | XMS_ITS | Encounter Summary ---
Author Organization [facility] Address [address] [facility] [place] [address] Phone Care Team Providers Care Packaging Associate Name Role Phone Unavailable Primary Care Provider Unavailabl e Reason for Visit * Reason Onset Date Comments Follow-up 12/14/2023 Encounter Details Date Type Department Care Team (Late st Contact Info) Description 12/14/2023 Telephone [facility] Medicine [address] [facility] R5.400 [place], [place] [address] Aretha Damon MD 701 [place], [place] [phone] Follow-up Social History Tobacco Use Types Packs/Day [...]
--- OUTSIDE RECORDS SUMMARY | 2024-02-14 09:00 | XMS_ITS | Encounter Summary ---
Author Organization [facility] Address [address] [place] [address] Phone Care Team Providers Care Wet End Tester Name Role Phone Unavailable Primary Care Provider Unavailabl e Reason for Visit * Reason Comments Wound Encounter Details Date Type Department Care Team (Late st Contact Info) Description 12/27/2023 9:00 AM CDT Nurse Only [facility] [address] [address] Afshan Sims, DPMorelia [address] [phone] Discharge Disposition: Discharged to home or self [...] on Original Admission: Yes Location:Groin Site Assessment Granular;[place] Rain-Wound Assessment Intact Tunneling or undermining present? [...]
--- OUTSIDE RECORDS SUMMARY | 2024-02-14 09:00 | XMS_ITS | Encounter Summary ---
Author Organization [facility] Address [address] [place] [phone] Phone Care Team Providers Care [employer] Name Role Phone Unavailable Primary Care Provider [...] FULL BODY CHAMBER PER 30 MINUTE INTERVAL NC PHYS/QHP ATTN&SUPVJ HYPRBARIC OXYGEN TX/SESSION Routine, Hbo - [id number] Referral ID Status Reason Start Date Expiration Date V isits Requested Visits Authorized [id number] Auth Not Needed 12/20/2023 03/09/2024 30 30 Encounter Details Date Type Department Care Team (Latest Contact Info) Description 12/22/2023 9:43 AM CDT - 12/22/2023 11:59 PM CDT Hospital Encounter [facility] Hyperbaric [address] [facility] [address] [place], [place] [id number] Narcisa Sanford MD [address] [place], [place] [id number] Routine, Hbo - [id number] Discharge Disposition: Discharged to home or self [...] hesitate to call the Hyperbaric Department at [phone] during clinic hours or page data reduction technician staff with any updates, questions, or concerns. Continuous attending physician supervision was provided throughout the hyperbaric oxygen treatment.I have reviewed and agree with treatment note created by the Hyperbaric Medicine Nurse Practitioner, Mayuri Hinojosa APRN, LIVESTOCK AUCTION[employer]ER. Narcisa Sanford MD, 12/22/2023 3:23 PM documented in this encounter Plan of Treatment Not on file documented as of this encounter Procedures Procedure Name Priority Date/Time Associated Diagnosis Comments POC GLUCOSE Routine 12/22/2023 9:48 AM CDT documented in this encounter Results * (ABNORMAL) POC GLUCOSE (12/22/2023 9:48 AM CDT) POC Glucose 318(H) 70 - 100 mg/dL [facility] Blood 12/22/2023 9:48 AM CDT Nikolai Martinez MD LABORATORY [facility] [address] [place] [address], documented in this encounter Visit Diagnoses Diagnosis Soft tissue infection- Primary Unspecified infectious and parasitic diseases Other acute osteomyelitis of left foot ([facility] documented in this encounter Additional Health Concerns Infection Onset Date Last Indicated Resolved Time 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
--- OUTSIDE RECORDS SUMMARY | 2024-02-14 09:01 | XMS_ITS | Encounter Summary ---
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[facility]) Clint Barber MD [address] [address] Referral ID Status Reason Start Date Expiration Date V isits Requested Visits Authorized [id number] New Request 12/14/2023 12/14/2024 1 1 * Consult/Test/Treat (Routine) - New Request Specialty Diagnoses / Procedures Referred By Contac t Referred To Contact Diagnoses Soft tissue infection Igor Glover MD [address] [address] PATIENT CHOICE Referral ID Status Reason Start Date Expiration Date V isits Requested Visits Authorized [id number] New Request 12/12/2023 12/12/2024 1 1 * Consult/Test/Treat (Routine) - New Request Specialty Diagnoses / Procedures Referred By Contac t Referred To Contact Physical Therapy / PHYSICAL THERAPY Diagnoses Soft tissue infection Igor Glover MD [address] [address] PATIENT CHOICE Referral ID Status Reason Start Date Expiration Date V isits Requested Visits Authorized [id number] New Request 12/12/2023 12/12/2024 1 1 Reason for Visit * Auth/Cert (Routine) Specialty Diagnoses / Procedures Referred By Contmini t Referred To Contact SURGERY Diagnoses Other acute osteomyelitis of left foot ([facility]) Eusebio Vivar MD [address] [place] [address] Or P4 [address] [place] [address] Referral ID Status Reason Start Date Expiration Date Visits Re quested Visits Authorized [id number] 1 1 Encounter Details Date Type Department Care Team (Latest Contact Info) Description 12/07/2023 3:48 PM CDT - 12/14/2023 12:38 PM CDT Hospital Encounter [facility] Orthopaedic 701 [facility] G3.220 [place], [place] [id number] Eusebio Vivar MD [address] [place] [phone] Mirta Urena MD [address] [place] [address] [phone] Suzy Shafer PA-C [address] [place] [address] [phone] Igor Glover MD [address] [phone] Clint Barber MD [address] [place] [address] [phone] Other acute osteomyelitis of left foot ([facility]) Discharge Disposition: Discharged/transd to home (care [...] on discharge due to cost/transport issues at [place]. HOSPITAL COURSE BY PROBLEM: Acute osteomyelitis of [...] 12/12 - discussed with PharmD. HTN: Continue MEDICAL CLERK amlodipine. Hyperlipidemia: Continue MEDICAL CLERK rosuvastatin. Tobacco use disorder: Continue NRT. Hx of TBI. Malnutrition Weight: (!) 139.9 kg (308 lb 6.8 oz) Wt Change from Previous: 0 Kg Wt Change from Admit: 0 Kg % Wt Change from Adm: 0 % Maryneal Body Wt (IBW) Male (kg): 75.3 kg [...] Comments: Fax to Dr. Aretha Damon at [phone] PANEL HEPATIC FUNCTION Standing Status: Future Standing Exp. Date: 03/13/24 Order Comments: Fax to Dr. Aretha Damon at [phone] Scheduling Instructions: Hepatic Function Panel includes: Albumin, Alk Phos, ALT, AST, Direct Bilirubin, Total Bilirubin and Total Protein C-REACTIVE PROTEIN Standing Status: Future Standing Exp. Date: 03/13/24 Order Comments: Fax to Dr. Aretha Damon at [phone] CREATININE, SERUM Standing Status: Future Standing Exp. Date: 03/13/24 Order Comments: Fax to Dr. Aretha Damon at [phone] Referral to Physical Therapy Referral Priority: Routine [...] Okay for Group Home Facility standing orders? Order Specific Question Answer Comments OK for Group Home Facility house standing orders? Yes Give Mantoux unless current or contraindicated. Scheduling Instructions: Please specify in comments! Resume previous standing orders per [facility]ci policy Order Comments: Resume previous standing orders per [facility]ci policy Scheduling Instructions: Please specify in comments! [...] equipment/supplies recommended: None Final discharge destination: Subacute [facility] with rehab care R: The patient and [...] hesitate to call the Hyperbaric Department at [phone] during clinic hours or page funeral professional staff with any updates, questions, or concerns. [...] is medically ready for discharge back to [facility] since 12/11. Spoke to Tabatha at [facility] today ([phone]) who reported that the patient was not [...] () of patient departure: 12/13/2023 @1530 Destination: [facility] [employer] [place], [place] Type of ride: wheelchair Transportation vendor of ride: [facility] [phone] * If this ride needs to be [...] Clinical Coordinators will be informed via a [employer] page. PCS form was completed in Progress [...] infection Attending provider: Igor Glover MD Insurance: [facility] Secondary insurance: [place] [employer] Height: Height: 180.3 cm (5' [...] hesitate to call the Hyperbaric Department at [phone] during clinic hours or page funeral professional staff with any updates, questions, or concerns. [...] 12/12 - discussed with PharmD. HTN: Continue MEDICAL CLERK amlodipine. Hyperlipidemia: Continue MEDICAL CLERK rosuvastatin. Tobacco use disorder: Continue NRT. Hx of TBI. FEN: Regular consistent carb diet. Code status: Full code. VTE prophylaxis: VTE prophylaxis with lovenox to start 12/10. Lines: No central line. No mujica. Discharge planning: Discharg to [facility] in [place] when they're able to accept him back.Possibly [...] Discharge Goals: Patient's Discharge Goal: back to [facility] Discharge Goal: n/a Discharge Destination Expected Discharge [...] Selected Services Address Phone Fax Patient Preferred [facility] Pending - No Request Sent N/A [id number] [facility] [phone] -- Narcisa Tobar LGSW, 12/12/2023 9:50 AM * Aretha Damon MD - 12/12/2023 8:53 AM CDT ID PROGRESS NOTE Stephanie Low 1980 male [id number] ASSESSMENT: MRSA left foot osteomyelitis S/p I&D [...] from this and is near baseline. 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 Healing well currently, per surgery evaluation. 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 Paranoid schizophrenia HILL: On prazosin, escitalopram and monthly paliperidone injections. Will continue these. Next due for paliperidone injection 12/12 - discussed with PharmD. HTN: Continue MEDICAL CLERK amlodipine. Hyperlipidemia: Continue MEDICAL CLERK rosuvastatin. Tobacco use disorder: Continue NRT. Hx of TBI. FEN: Regular consistent carb diet. Code status: Full code. VTE prophylaxis: VTE prophylaxis with lovenox to start 12/10. Lines: No central line. No mujica. Discharge planning: Discharg to [facility] in [place] when they're able to accept him back.Possibly [...] Glover MD, 12/11/2023 7:34 PM Page via [employer] * Eusebio Perez, PharmD - 12/11/2023 3:38 [...] recent) Eusebio Perez, Jaxon 12/11/2023 19:22 Pager: ([facility]) * Lizbeth Cavazos LICSW - 12/11/2023 2:41 PM CDT Weekend Inpatient Social Work Note Summary: Weekend SW paged by bedside RN to help facilitate coordination back to TCU today. GARY called Cruz Aguiar and left a voicemail. Many barriers are at play for a weekend return - patient hasIV antibiotics, he is recommended to receive 20 HBO sessions (1st today), and has [facility] Medicare Advantage (which requires prior authorization). GARY advised this likely cannot be resolved during the weekend due to the barriers listed above. Follow up needed: GARY will try to problem solve if [facility] Aguiar calls back, if not weekday team to follow up on plan for discharge. RAJ Cadena, PLACIDO Inpatient Worker'S Compensation Claims Examiner - Casual (weekends only) Available via Erly Lizbeth Cavazos LICSW, 12/11/2023 2:41 PM Addendum [...] hesitate to call the Hyperbaric Department at [phone] during clinic hours or page funeral professional staff with any updates, questions, or concerns. [...] Schizophrenia History of TBI --Patient is own [facility] RECOMMENDATIONS: 1. Dressing: Dressed [...] continue to follow while admitted. Please page funeral professional resident with questions. Patient was discussed with funeral professional staff Interval history: Patient seen and evaluated [...] 12/12 - discussed with PharmD. HTN: Continue MEDICAL CLERK amlodipine. Hyperlipidemia: Continue MEDICAL CLERK rosuvastatin. Tobacco use disorder: Continue NRT. Hx of TBI. FEN: Regular consistent carb diet. Code status: Full code. VTE prophylaxis: VTE prophylaxis with lovenox to start 12/10. Lines: No central line. No mujica. Discharge planning: Discharged to [facility] on 11/24 after admission for Demar's gangrene, [...] Glover MD, 12/10/2023 2:18 PM Page via [employer] * Denise Esteves RN - 12/10/2023 11:57 AM CDT Clinical Coordinator Note: 12/10/23 1156 Rapid Rounds Attendance Physician;Charge nurse;digital production manager;animal husbandry worker;Bedside nurse Expected Discharge Disposition SNF Today [...] to discharge. Denise Esteves Inpatient Clinical Coordinator [facility] Office: [phone] * Suzy Patino DPM - 12/10/2023 8:42 [...] Schizophrenia History of TBI --Patient is own [facility] RECOMMENDATIONS: 1. Dressing: Dressed [...] continue to follow while admitted. Please page funeral professional resident with questions. Patient was discussed with funeral professional staff Interval history: Patient seen resting comfortably [...] 12/12 - discussed with PharmD. HTN: Continue MEDICAL CLERK amlodipine. Hyperlipidemia: Continue MEDICAL CLERK rosuvastatin. Tobacco use disorder: Continue NRT. Hx of TBI. FEN: Regular consistent carb diet. Code status: Full code. VTE prophylaxis: VTE prophylaxis with hep to start 12/08. Lines: No central line. No mujica. Discharge planning: Discharged to [facility] on 11/24 after admission for Demar's gangrene. [...] Glover MD, 12/09/2023 10:33 PM Page via [employer] * David Mancuso, PharmD - 12/09/2023 3:54 [...] 12/09/2023 Expected DC Date: 12/10/2023 Social Information Stamping Die Maker Used: None needed Decision Maker at Admission: Self Living Situation: shelter (see comment) Patient Identified Support System: sister, significant other Services Receiving: Waivered services (see comment) Complex Medical Needs: Other (see comment) (wound care) Transportation Used for Discharge: stretcher Safety Concerns: None Behavioral Health Concerns: None Patient Family Goals Patient's Discharge Goal: back to [facility] Family's Discharge Goal: n/a Plan/Interventions Expected Discharge Disposition: Group Home Facility Patient Information Verification Verified demographic information, including SSN, Next of Kin, and Guardianship: Yes Verified PCP: Yes If post-acute placement is needed, have vaccination status needs been addressed?: Not applicable Risks for Readmission: None Summary of pertinent information: Patient admitted from [facility] with concern for a left great to osteomyelitis that was resected 12/07. 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 Have a call out to [facility] to confirm bed hold ([phone]). Spoke to staff at his [facility] (Minnie [phone]) to also update and confirm that he can return there when ultimately. Patient currently has started on HBO, this may be problematic with returning to [facility]. Emily Hannah RN, 12/09/2023 1:49 PM * [...] Schizophrenia History of TBI --Patient is own [facility] RECOMMENDATIONS: 1. Dressing: Dressed [...] continue to follow while inpatient Please page funeral professional resident with questions. Patient was discussed with funeral professional staff Interval history: Patient seen and evaluated [...] Schizophrenia History of TBI --Patient is own [facility] RECOMMENDATIONS: 1. Dressing: Dressed [...] continue to follow while inpatient Please page funeral professional resident with questions. Patient was seen with funeral professional staff, Dr. Palomo Interval history: Patient is [...] 1446 for Other acute osteomyelitis of leftfoot ([facility]) . Patient: alert, oriented to person, [...] informed of Patient Valuables and Belongings Policy (#[id number]): Policy reviewed - patient/family/designee has indicated that [...] 12/12 - discussed with PharmD. HTN: Continue MEDICAL CLERK amlodipine. Hyperlipidemia: Continue MEDICAL CLERK rosuvastatin. Tobacco use disorder: Continue NRT. Hx of TBI. FEN: Regular consistent carb diet. Code status: Full code. VTE prophylaxis: VTE prophylaxis with hep to start 12/08. Lines: No central line. No mujica. Discharge planning: Discharged to [facility] in [place] on 11/24 after admission for Demar's gangrene. [...] -F/up cultures currently in process -NPO at ID, holding VTE ppx -AM BMP, CBC, CRP, ESR Chronic / Stable / Resolved / Ruled Out #T2DM: A1c 6.8% 07/2023. Reduce MEDICAL CLERK lantus to 15 U while NPO, Novolog 1U/CHO + LDSSI. Rechecking A1c. #HTN: MEDICAL CLERK amlodipine 10 mg daily #HLD: MEDICAL CLERK statin #Paranoid schizophrenia: MEDICAL CLERK prazosin #HILL: MEDICAL CLERK escitalopram 20 mg daily #Tobacco use disorder: NRT ordered #Hx TBI #Hx R TMA #Sinus inversus History of Present Illness: Stephanie oLw is a 43 y.o. male who presented [...] including pre-visit review of separately obtained history, vlha-df-[id number] interaction performing medically appropriate physical exam, patientcounseling/education, [...] surgery and sign off. Pt was at [facility] 11/09 to 11/24 for Demar's gangrene. Discharge [...] wound healing. Message sent to primary team. [facility] Nursing follow up: Appreciate the opportunity to consult on this patient, Wound Ostomy Continence Services will sign off at this time. Please place additional 'Wound Consult' if wanting further assessment for this patient. Staff to continue to follow skin injury bundle. Escalate concerns to WOCN through additional consult or to the provider when barriers are identified. WOCN available Wednesday through Wednesday on [employer] or [phone] [facility] Nursing attempts to see patients in [...] on service at PharmD General Weekend Days ([employer]) or [phone]. If no response within needed timeframe, please contact central pharmacy via phone at [phone]. Planned discharge medications are: Medication List Medications [...] NEW CONSULT NOTE Stephanie Low 1980 male [id number] REASON FOR CONSULT: I was asked to [...] clear proximal margins on 11/17/23 and necrotizing fascitis/Deamr's s/p I&D 11/11/23 and ceftriaxone and flagyl [...] Prior to recent hospitalization pt lived at [facility] with elevator. Was independent with mobility SUBJECTIVE [...] bearing restrictions, otherwise bed to chair only MEDICAL CLERK Appropriate: No (more OR) Participated in goal setting and treatment planning: Patient Agrees with goals and treatment plan: Question patient's ability to understand. Gracia Arredondo, PT 12/10/2023 Pager: [facility] PT Department * David Cortes MD - 12/09/2023 9:58 AM CDT Images from the original note were not included. [facility] HYPERBARIC MEDICINE CONSULTATION Referring clinician: Che Palomo [...] old poorly controlled DMII male referred to [facility] Hyperbaric medical team for consultation regarding concern [...] sex Other acute osteomyelitis of left foot ([facility]) Past Surgical History: Procedure Laterality Date TOE [...] not hesitate to call the department at [phone] during clinic hours ([phone]) or page the funeral professional HYPERBARIC staff with any questions or concerns. [...] allowing us to participate in Stephanie Low [facility]. [place] [facility]: [phone]. David Cortes MD * Angela Cardenas CWOCN - 12/08/2023 3:00 PM CDTAssociated Order(s): CONSULT TO WOUND NURSE Images from the original note were not included. [facility] Nursing consulted by nursing for perineal wounds. Pt was at [facility] 11/09 to 11/24 for Demar's gangrene. Discharge [...] wound healing. Message sent to primary team. [facility] Nursing follow up: later this week after surgery sees Staff to continue to follow skin injury bundle. Escalate concerns to WOCN through additional consult or to the provider when barriers are identified. WOCN available Wednesday through Wednesday on [employer] or [phone] [facility] Nursing attempts to see patients in [...] Schizophrenia History of TBI --Patient is own [facility] RECOMMENDATIONS: 1. Dressing: Daily [...] continue to follow while inpatient Please page funeral professional resident with questions. Patient was seen with funeral professional staff, Dr. Palomo CHIEF COMPLAINT: Left foot [...] OR Date: 12/10/2023 Surgeon: Suzy Patino DPM [employer]fgrass Technician(s): Samina Singletary DPM PGY3 Pre-Op Diagnosis: Packed [...] AM CDT Podiatric Surgery Operative Report Stephanie Lwo : 1980 Sex: male Surgeon: Che Palomo DPM [employer] Technician(s): Niraj Lewis DPM PGY-3 Jf Sky MS-4 Pre-Op Diagnosis: Acute osteomyelitis of [...] 2023 2242 Started nicotine gum PRN Started MEDICAL CLERK glargine and lispro The patient remained in the emergency department through the end of my shift. Their care was signedout [id number] with the oncoming provider. Dx, DDx, Assessment and Plan was discussed with Attending Emergency Medicine Physician. Final Clinical Impression 1. Other acute osteomyelitis of left foot ([facility]) Disposition and Plan Signed out to [...] in real time. Please contact me via [employer] staff message if you note any errors requiring clarification. * Farida Beyer RN - 12/07/2023 7:41 PM CDT Assumed care of pt. SNF director here as pt was reported missing when he did not return back from the clinic. Plan for admission with OR tomorrow. NPO at midnight, pt aware. * Allyssa Drummond MD - 12/07/2023 4:25 PM CDT Emergency Department Physician Note [facility] HISTORY Stephanie Low is a 43 y.o. [...] 1. Other acute osteomyelitis of left foot ([facility]) DISPOSITION & PLAN Patient remained in [...] Toe Head to Toe Assessment Shift Summary [id number] Alert and oriented x3, unsure of the [...] Physical Therapy Inpatient Discharge Summary Stephanie Low [id number] Diagnosis Patient Active Problem List Diagnosis Fourniers [...] to Toe Assessment Shift Summary Shift Summary [id number] Pt alert oriented and able to make [...] Toe Head to Toe Assessment Shift Summary 1361-8435 Daily dressing change done per order, reported [...] Toe Head to Toe Assessment Shift Summary 9383-2020 Alert and oriented x 4, able to [...] Toe Head to Toe Assessment Shift Summary [id number] Patient is alert and oriented x 4,RA.Vitals [...] amputation RLE - amputation Comments: R amputation MEDICAL CLERK Integumentary Assessment Within Defined Limits except for: [...] Toe Head to Toe Assessment Shift Summary [id number] Patient is alert and oriented x 4,RA.Vitals [...] 12/10/2023 6:30 PM PGY-1 Green Surgery Pager: [phone] * Nursing Assessment - May Torres RN [...] Singletary DPM - 12/10/2023 11:[address] [facility] Immediate Post Operative Note Note written: [...] Toe Head to Toe Assessment Shift Summary [id number] Alert and oriented x3, unsure of the [...] Head to Toe Assessment Shift Summary Night [id number] PT is AO x4. Able to make [...] Dennis RN - 12/08/2023 2:28 PM CDTSummary: BANKING MANAGEMENT CONSULTING MANAGERcare companion PACU to IP Nursing Handoff Note S [...] Comments: RN: Cheryl Dennis RN Extension #: [id number] * Op Note Immediate - Niraj Lewis DPM - 12/08/2023 7:[address] [facility] Immediate Post Operative Note Note written: [...] 1. Other acute osteomyelitis of left foot ([facility]) Eusebio Vivar MD, 12/08/2023 12:16 AM * Interval Note Provider - Shayna Schreiber MD - 12/07/2023 8:53 PM CDT Handoff Communication Note for Hospital Admission Verbal handoff received from Dr. Drummond in [facility]. Patient Class: Inpatient Cardiac Monitoring: Not [...] designation above. Please page the MOD via [employer] with clinical updates or status changes. Note [...] CDT Other acute osteomyelitis of left foot ([facility]) REVISION, AMPUTATION SITE, LOWER EXTREMITY Urgent [...] POC Glucose 255(H) 70 - 100 mg/dL [facility] POINT OF CARE Blood 12/14/2023 11:2 9 AM CDT Eusebio Vivar MD LABORATORY Performing Organization Address [facility] de Phone Number [facility] [address] [id number], [place] * (ABNORMAL) POC GLUCOSE (12/14/2023 6:32 AM CDT) POC Glucose 186(H) 70 - 100 mg/dL [facility] POINT OF [facility] Blood 12/14/2023 6:32 AM CDT Eusebio Vivar MD LABORATORY Performing Organization Address [facility] de Phone Number [facility] [address] [place] [address], [place] * (ABNORMAL) POC GLUCOSE (12/13/2023 9:05 PM CDT) POC Glucose 175(H) 70 - 100 mg/dL [facility] Blood 12/13/2023 9:05 PM CDT Eusebio Vivar MD LABORATORY Performing Organization Address [facility] de Phone Number [facility] [address] [id number], [place] * VANCOMYCIN LEVEL (12/13/2023 5:24 PM CDT) Vancomycin 17.0 mcg/mL [facility] Comment:Expected Range (Trou gh): 10-20 mcg/ml Blood 12/13/2023 5:24 PM CDT 12/13/2023 5:46 PM CDT Narrative [facility] - 12/13/2023 6:34 PM CDT Please ensure trough level drawn prior to next vancomycin dose. Thank you Peak or trough:->Trough Eusebio J Ana PharmD LABORATORY [facility] [address] [place] [address] * (ABNORMAL) POC GLUCOSE (12/13/2023 4:00 PM CDT) POC Glucose 153(H) 70 - 100 mg/dL [facility] POINT OF CARE Blood 12/13/2023 4:00 PM CDT Eusebio Vivar MD LABORATORY Performing Organization Address City/[facility]/ZIP Co de Phone Number [facility] POINT OF CARE [address] [place] [address], [place] * (ABNORMAL) POC GLUCOSE (12/13/2023 11:47 AM CDT) POC Glucose 271(H) 70 - 100 mg/dL [facility] POINT OF CARE Blood 12/13/2023 11:4 7 AM CDT Eusebio Vivar MD LABORATORY Performing Organization Address [facility] Co de Phone Number [facility] [address] [place] [id number], [place] * (ABNORMAL) POC GLUCOSE (12/13/2023 6:35 AM CDT) POC Glucose 204(H) 70 - 100 mg/dL [facility] POINT OF CARE Blood 12/13/2023 6:35 AM CDT Eusebio Vivar MD LABORATORY Performing Organization Address City/[facility] Co de Phone Number [facility] POINT OF CARE [address] [place] [address], [place] * (ABNORMAL) POC GLUCOSE (12/12/2023 8:54 PM CDT) POC Glucose 170(H) 70 - 100 mg/dL [facility] POINT OF CARE Blood 12/12/2023 8:54 PM CDT Eusebio Vivar MD LABORATORY ST. [facility] [address] [place] [address], [place] * (ABNORMAL) POC GLUCOSE (12/12/2023 4:10 PM CDT) POC Glucose 252(H) 70 - 100 mg/dL [facility] POINT [facility] C[facility] Blood 12/12/2023 4:10 PM CDT Eusebio Vivar MD LABORATORY Performing Organization Address City/[facility]/ZIP Co de Phone Number [facility] [address] [place] [address], [place] * (ABNORMAL) POC GLUCOSE (12/12/2023 11:07 AM CDT) POC Glucose 200(H) 70 - 100 mg/dL [facility]ARE Blood 12/12/2023 11:0 7 AM CDT Eusebio Vivar MD LABORATORY Performing Organization Address [facility] Co de Phone Number [facility] [address] [place] [address], [place] * (ABNORMAL) POC GLUCOSE (12/12/2023 6:42 AM CDT) POC Glucose 185(H) 70 - 100 mg/dL [facility] POINT OF CARE Blood 12/12/2023 6:42 AM CDT Eusebio Vivar MD LABORATORY Performing Organization Address City/[facility]/ZIP Co de Phone Number [facility] POINT OF CARE [address] [place] [address], [place] * (ABNORMAL) POC GLUCOSE (12/11/2023 9:10 PM CDT) POC Glucose 226(H) 70 - 100 mg/dL [facility] PO[facility]ARE Blood 12/11/2023 9:10 PM CDT Eusebio Vivar MD LABORATORY [facility]ARE [address] [place] [address], * VANCOMYCIN LEVEL (12/11/2023 5:28 PM CDT) Vancomycin 19.6 mcg/mL [facility] Comment:Expected Range (Trou gh): 10-20 mcg/ml Blood 12/11/2023 5:28 PM CDT 12/11/2023 5:37 PM CDT Narrative [facility] - 12/11/2023 6:46 PM CDT Peak or trough:->Trough Igor Glover MD LABORATORY [facility] [address] [place] [phone] * (ABNORMAL) POC GLUCOSE (12/11/2023 4:13 PM CDT) POC Glucose 173(H) 70 - 100 mg/dL [facility] PO[facility]ARE Blood 12/11/2023 4:13 PM CDT Eusebio Vivar MD LABORATORY Performing Organization Address City/[facility]/ZIP Co de Phone Number [facility] PO[facility]ARE [address] [place] [address], [place] * (ABNORMAL) POC GLUCOSE (12/11/2023 11:43 AM CDT) POC Glucose 283(H) 70 - 100 mg/dL [facility] PO[facility]ARE Blood 12/11/2023 11:4 3 AM CDT Eusebio Vivar MD LABORATORY [facility]ARE [address] [place] [address], [place] * (ABNORMAL) POC GLUCOSE (12/11/2023 10:28 AM CDT) POC Glucose 198(H) 70 - 100 mg/dL [facility]INT [facility] CARE Blood 12/11/2023 10:2 8 AM CDT Eusebio Vivar MD LABORATORY Performing Organization Address [facility] Co de Phone Number [facility] CARE [address] [place], [place] [phone], * (ABNORMAL) POC GLUCOSE (12/11/2023 6:41 AM CDT) [facility] POC Glucose 173(H) 70 - 100 mg/dL [facility] POINT [facility] CARE Blood 12/11/2023 6:41 AM CDT Eusebio Vivar MD LABORATORY Performing Organization Address [facility] de Phone Number [facility] POINT OF [facility] [address] [place], [place] [phone], [place] * (ABNORMAL) CBC WITH PLTS/AUTO DIFF (12/11/2023 5:50 AM CDT) [facility] WBC 8.72 4.00 - 10.00 k/cmm [facility] RBC 3.82(L) 4.60 - 6.00 m/cmm [facility] Hgb 10.6(L) 13.1 - 17.5 g/dL [facility] Hematocrit 32.4(L) 40.0 - 51.0 % [facility] MCV 84.8 80.0 - 100.0 fL [facility] MCH 27.7 25.0 - 32.0 pg [facility] MCHC 32.7 31.0 - 36.0 g/dL [facility] RDW 13.5 11.5 - 14.5 % [facility] Plt 400 150 - 400 k/cmm [facility] MPV 9.3 6.5 - 12.5 fL [facility] Automated Abs Neutrophil 4.22 1.70 - 6.50 k/cmm [facility] Comment:Preliminary ANC, Fin al Result to Follow Abs Immature Granulocyte 0.09 0.00 - 0.09 k/cmm [facility] Comment:The Immature Granulo cyte Absolute count contains metamyelocytes and myelocytes. Abs Neutrophil 4.22 1.70 - 6.50 k/cmm [facility] Abs Lymphocyte 2.59 0.80 - 4.00 k/cmm [facility] Abs Monocyte 1.00 0.20 - 1.00 k/cmm [facility] Abs Eosinophil 0.79(H) 0.00 - 0.60 k/cmm [facility] Abs Basophil 0.03 0.00 - 0.20 k/cmm [facility] Blood 12/11/2023 5:50 AM CDT 12/11/2023 6:26 AM CDT Igor Glover MD LABORATORY Performing Organization Address City/[facility]/ZIP Co de Phone Number [facility] [address] [address] * (ABNORMAL) PANEL BASIC METABOLIC (BMP) (12/11/2023 5:50 AM CDT) CO2 25 22 - 30 mmol/L [facility] Glucose 178(H) 70 - 100 mg/dL [facility] BUN 9 6 - 20 mg/dL [facility] Creatinine 0.92 0.70 - 1.25 mg/dL [facility] Calcium 9.0 8.6 - 10.0 mg/dL [facility] Sodium 136 135 - 148 mmol/L [facility] Potassium 4.1 3.5 - 5.3 mmol/L [facility] Chloride 100 92 - 108 mmol/L [facility] eGFR (2020 CKD-EPI) 105 >=60 ml/min/1.7 3m2 [facility] Comment: The estimated glomerular filtration rate (eGFR) was calculated using the CKD-EPI 2020 creatinine equation, which does not include race as a factor. This equation is validated in individuals 18 years of age and older, and eGFR is normalized to a body surface area of 1.73m^2. AnGap 11 8 - 16 mmol/L [facility] Blood 12/11/2023 5:50 AM CDT 12/11/2023 6:25 AM CDT Igor Glover MD LABORATORY Performing Organization Address City/[facility]/ZIP Co de Phone Number [facility] [address] [address] * (ABNORMAL) POC GLUCOSE (12/10/2023 9:03 PM CDT) POC Glucose 206(H) 70 - 100 mg/dL [facility] POINT OF CARE Blood 12/10/2023 9:03 PM CDT Eusebio Vivar MD LABORATORY Performing Organization Address [facility] de Phone Number [facility] POINT OF CARE [address] [place] [address], [place] * (ABNORMAL) POC GLUCOSE (12/10/2023 4:16 PM CDT) POC Glucose 341(H) 70 - 100 mg/dL [facility] POINT OF CARE Blood 12/10/2023 4:16 PM CDT Eusebio Vivar MD LABORATORY Performing Organization Address [facility] de Phone Number [facility] POINT OF [facility] [address] [place] [address], [place] * XR CHEST 2 VIEWS PA [...] POC Glucose 194(H) 70 - 100 mg/dL [facility] POINT OF CARE Blood 12/10/2023 12:0 9 PM CDT Eusebio Vivar MD LABORATORY [facility] POINT [facility] CARE [address] [place] [address], * SURGICAL PATHOLOGY (12/10/2023 11:07 AM CDT) SURG PATH FINAL ?Surgical Pathology Report Collection Date: ?12/10/2023 11:07 CDT ? Ordering Physician: ? SUZY PATINO Received Date: ?12/10/2023 12:07 CDT ? Accession Number: ? [id number] ? Surgical Pathology Final Report Specimen Type: [...] Regalado M.D. Attending Pathologist. DDB/DDB 12.10.2023 13:39 [facility] AP Specimen FOOT STRUCTURE / Unknown 12/10/2023 11:07 AM CDT Comment:OR: Routine gross an d microscopic examination Tissue: 1st metatarsel left foot, cut margin Site: foot Additional clinical information: Suzy Patino DPM LAB PATHOLOGY [facility] [address] [place] [address] * (ABNORMAL) POC GLUCOSE (12/10/2023 6:16 AM CDT) POC Glucose 228(H) 70 - 100 mg/dL [facility] POINT OF CARE Blood 12/10/2023 6:16 AM CDT Eusebio Vivar MD LABORATORY [facility] POINT [facility] CARE [address] [place] [address], * (ABNORMAL) CBC WITH PLTS/AUTO DIFF (12/10/2023 5:06 AM CDT) Pathologist [facility] WBC 8.35 4.00 - 10.00 k/cmm [facility] RBC 3.81(L) 4.60 - 6.00 m/cmm [facility] Hgb 10.3(L) 13.1 - 17.5 g/dL [facility] Hematocrit 32.5(L) 40.0 - 51.0 % [facility] MCV 85.3 80.0 - 100.0 fL [facility] MCH 27.0 25.0 - 32.0 pg [facility] MCHC 31.7 31.0 - 36.0 g/dL [facility] RDW 13.4 11.5 - 14.5 % [facility] Plt 377 150 - 400 k/cmm [facility] MPV 9.4 6.5 - 12.5 fL [facility] Automated Abs Neutrophil 4.14 1.70 - 6.50 k/cmm [facility] Comment:Preliminary ANC, Fin al Result to Follow Abs Immature Granulocyte 0.08 0.00 - 0.09 k/cmm [facility] Comment:The Immature Granulo cyte Absolute count contains metamyelocytes and myelocytes. Abs Neutrophil 4.14 1.70 - 6.50 k/cmm [facility] Abs Lymphocyte 2.39 0.80 - 4.00 k/cmm [facility] Abs Monocyte 1.06(H) 0.20 - 1.00 k/cmm [facility] Abs Eosinophil 0.64(H) 0.00 - 0.60 k/cmm [facility] Abs Basophil 0.04 0.00 - 0.20 k/cmm [facility] Blood 12/10/2023 5:06 AM CDT 12/10/2023 5:40 AM CDT Igor Glover MD LABORATORY Performing Organization Address [facility] Co de Phone Number [facility] [address] [address] * (ABNORMAL) PANEL BASIC METABOLIC (BMP) (12/10/2023 5:06 AM CDT) CO2 26 22 - 30 mmol/L [facility] Glucose 204(H) 70 - 100 mg/dL [facility] BUN 11 6 - 20 mg/dL [facility] Creatinine 0.92 0.70 - 1.25 mg/dL [facility] Calcium 9.0 8.6 - 10.0 mg/dL [facility] Sodium 137 135 - 148 mmol/L [facility] Potassium 4.2 3.5 - 5.3 mmol/L [facility] Chloride 101 92 - 108 mmol/L [facility] eGFR (2020 CKD-EPI) 105 >=60 ml/min/1.7 3m2 [facility] Comment: The estimated glomerular filtration rate (eGFR) was calculated using the CKD-EPI 2020 creatinine equation, which does not include race as a factor. This equation is validated in individuals 18 years of age and older, and eGFR is normalized to a body surface area of 1.73m^2. AnGap 10 8 - 16 mmol/L [facility] Blood 12/10/2023 5:06 AM CDT 12/10/2023 5:40 AM CDT Igor Glover MD LABORATORY Performing Organization Address [facility] Co de Phone Number [facility] [address] [address] * (ABNORMAL) POC GLUCOSE (12/09/2023 9:18 PM CDT) POC Glucose 204(H) 70 - 100 mg/dL [facility] POINT OF CARE Blood 12/09/2023 9:18 PM CDT Eusebio Vivar MD LABORATORY Performing Organization Address [facility] Co de Phone Number [facility] POINT OF CARE [address] [place] [address], * (ABNORMAL) PANEL BASIC METABOLIC (BMP) (12/09/2023 5:56 PM CDT) Sodium 134(L) 135 - 148 mmol/L [facility] Potassium 4.2 3.5 - 5.3 mmol/L [facility] Chloride 99 92 - 108 mmol/L [facility] CO2 23 22 - 30 mmol/L [facility] AnGap 12 8 - 16 mmol/L [facility] Glucose 246(H) 70 - 100 mg/dL [facility] BUN 13 6 - 20 mg/dL [facility] Creatinine 0.98 0.70 - 1.25 mg/dL [facility] Calcium 8.8 8.6 - 10.0 mg/dL [facility] eGFR (2020 CKD-EPI) 97 >=60 ml/min/1.7 3m2 [facility] Comment: The estimated glomerular filtration rate [...] MD LABORATORY Performing Organization Address City/[facility]/ZIP Co de Phone Number [facility] [address] [address] * VANCOMYCIN LEVEL (12/09/2023 5:56 PM CDT) Vancomycin 22.0 mcg/mL [facility] Comment:Expected Range (Trou gh): 10-20 mcg/ml Blood 12/09/2023 5:56 PM CDT 12/09/2023 6:26 PM CDT Narrative [facility] - 12/09/2023 8:14 PM CDT Peak or trough:->Trough Gwen Gamez PharmD LABORATORY Performing Organization Address [facility] Co de Phone Number [facility] [address] [place] [address] * (ABNORMAL) POC GLUCOSE (12/09/2023 4:08 PM CDT) POC Glucose 231(H) 70 - 100 mg/dL [facility] POINT OF [facility] Blood 12/09/2023 4:08 PM CDT Eusebio Vivar MD LABORATORY Performing Organization Address [facility] de Phone Number [address] [address], [place] * (ABNORMAL) POC GLUCOSE (12/09/2023 11:13 AM CDT) POC Glucose 282(H) 70 - 100 mg/dL [facility] Blood 12/09/2023 11:1 3 AM CDT Eusebio Vivar MD LABORATORY Performing Organization Address [facility] de Phone Number [address] [address], [place] * HBO TCO2 MEASUREMENT COMPLETE (12/09/2023 [...] Reg 2002; 10:198-207. Bridget QUIÑONEZ et al. [facility] 2009, Vol. 36(1). ? [place] 07/27/13 Suzy [...] POC Glucose 198(H) 70 - 100 mg/dL [facility] PO[facility] Blood 12/09/2023 6:43 AM CDT Eusebio Vivar MD LABORATORY Performing Organization Address [facility] Co de Phone Number [facility]ARE [address] [place] [address], * (ABNORMAL) POC GLUCOSE (12/08/2023 9:10 PM CDT) POC Glucose 268(H) 70 - 100 mg/dL [facility] Blood 12/08/2023 9:10 PM CDT Eusebio Vivar MD LABORATORY Performing Organization Address [facility] Co de Phone Number [facility]ARE [address] [place] [address], * (ABNORMAL) SED RATE (ESR) (12/08/2023 4:47 PM CDT) Sed Rate 120(H) 2 - 10 mm/hr [facility] Blood 12/08/2023 4:47 PM CDT 12/08/2023 5:07 PM CDT Suzy Shafer PA-C LABORATORY Performing Organization Address [facility]/ZIP Co de Phone Number [facility] [address] [address] * (ABNORMAL) PANEL BASIC METABOLIC (BMP) (12/08/2023 4:47 PM CDT) Sodium 134(L) 135 - 148 mmol/L [facility] Potassium 4.0 3.5 - 5.3 mmol/L [facility] Chloride 98 92 - 108 mmol/L [facility] CO2 24 22 - 30 mmol/L [facility] AnGap 12 8 - 16 mmol/L [facility] Glucose 247(H) 70 - 100 mg/dL [facility] BUN 16 6 - 20 mg/dL [facility] Creatinine 0.98 0.70 - 1.25 mg/dL [facility] Calcium 8.7 8.6 - 10.0 mg/dL [facility] eGFR (2020 CKD-EPI) 97 >=60 ml/min/1.7 3m2 [facility] Comment: The estimated glomerular filtration rate (eGFR) was calculated using the CKD-EPI 2020 creatinine equation, which does not include race as a factor. This equation is validated in individuals 18 years of age and older, and eGFR is normalized to a body surface area of 1.73m^2. Blood 12/08/2023 4:47 PM CDT 12/08/2023 5:07 PM CDT Suzy Shafer PA-C LABORATORY Performing Organization Address [facility]/ZIP Co de Phone Number [facility] [address] [address] * (ABNORMAL) GLYCOSYLATED HGB - A1C (12/08/2023 4:47 PM CDT) Hemoglobin A1C 8.5(H) 4.0 - 5.6 % [facility] Comment: Increased risk for diabetes (prediabetes): 5.7-6.4% Diabetes >=6.5% In the absence of unequivocal hyperglycemia, diagnosis requires two abnormal test results (i.e. HbA1c and glucose) or two abnormal results from specimens collected at two different timepoints. The presence of some hemoglobin variants or red cell disorders may interfere with the measurement of hemoglobin A1c (HbA1c). Estimated Average Glucose 197(H) 68 - 114 [facility] Comment: The estimated Average Glucose (eAG) was calculated using an equation derived from a study of 507 adults with type 1, type 2, or no diabetes. Minority populations were underrepresented and children were not included. The eAG is not equivalent to a fasting glucose concentration. Blood 12/08/2023 4:47 PM CDT 12/08/2023 5:07 PM CDT Narrative [facility] - 12/08/2023 6:01 PM CDT If not done in the last 30 days. Suzy Shafer PA-C LABORATORY [facility] [address] [address] * (ABNORMAL) CBC WITH PLATELET (12/08/2023 4:47 PM CDT) WBC 10.39(H) 4.00 - 10.00 k/cmm [facility] RBC 3.59(L) 4.60 - 6.00 m/cmm [facility] Hgb 9.8(L) 13.1 - 17.5 g/dL [facility] Hematocrit 30.8(L) 40.0 - 51.0 % [facility] MCV 85.8 80.0 - 100.0 fL [facility] MCH 27.3 25.0 - 32.0 pg [facility] MCHC 31.8 31.0 - 36.0 g/dL [facility] RDW 13.5 11.5 - 14.5 % [facility] Plt 314 150 - 400 k/cmm [facility] MPV 9.3 6.5 - 12.5 fL [facility] Blood 12/08/2023 4:47 PM CDT 12/08/2023 5:07 PM CDT Suzy Shafer PA-C LABORATORY Performing Organization Address City/[facility]/ZIP Co de Phone Number [address] [address] * (ABNORMAL) C-REACTIVE PROTEIN (12/08/2023 4:47 PM CDT) C-Reactive Protein 77(H) <=4 mg/L [facility] Blood 12/08/2023 4:47 PM CDT 12/08/2023 5:07 PM CDT Suzy Shafer PA-C LABORATORY Performing Organization Address [facility] Co de Phone Number [place] [phone] * (ABNORMAL) POC GLUCOSE (12/08/2023 4:20 PM CDT) POC Glucose 204(H) 70 - 100 mg/dL [facility] Blood 12/08/2023 4:20 PM CDT Eusebio Vivar MD LABORATORY Performing Organization Address City/[facility] Co de Phone Number [facility] POINT OF [place] [phone], [place] * (ABNORMAL) POC GLUCOSE (12/08/2023 12:35 PM CDT) POC Glucose 227(H) 70 - 100 mg/dL [facility] Blood 12/08/2023 12:3 5 PM CDT Eusebio Vivar MD LABORATORY Performing Organization Address City/[facility]/ZIP Co de Phone Number [facility] CARE [address] [place] [address], [place] * (ABNORMAL) POC GLUCOSE (12/08/2023 10:02 AM CDT) POC Glucose 263(H) 70 - 100 mg/dL [facility] Blood 12/08/2023 10:0 2 AM CDT Eusebio Vivar MD LABORATORY [facility]ARE [address] [place] [address], * XR FOOT LEFT 3 V AP/OBL/LAT* [...] POC Glucose 214(H) 70 - 100 mg/dL [facility] Blood 12/08/2023 8:32 AM CDT Eusebio Vivar MD LABORATORY [facility] [address] [place] [address], * SURGICAL PATHOLOGY (12/08/2023 7:56 AM CDT) SURG PATH FINAL ?Surgical Pathology Report Collection Date: ?12/08/2023 07:56 CDT ?Ordering Physician: ? CHE PALOMO Received Date: ?12/08/2023 08:41 CDT ?Accession Number: ? [id number] ? Surgical Pathology Final Report Specimen Type: [...] specimen reveals a yellow, trabeculated cut surface. Radar Repairer sections are submitted following decalcification as follows: A1: Resection margin, en face A2: Full cross-section of metatarsal head (DDB) DDB/DDB 12.08.2023 9:52 Microscopic Description: Microscopic examination performed and findings are reflected in the final diagnosis. I personally examined the relevant preparations and rendered and confirmed the diagnosis. ? Signed - Tootie Mackenzie M.D. Attending Pathologist. DDB/DDB 12.08.2023 9:52 [facility] AP Specimen FOOT STRUCTURE / Unknown 12/08/2023 7:56 AM CDT Comment:OR: Routine gross an d microscopic examination Tissue: Left first metatarsal head Site: left foot Additional clinical information: evaluate cut side for osteomyelitis Che Palomo [facility] PATHOLOGY Performing Organization Address [facility] de Phone Number [address] [address] * FUNGUS CULTURE:INCLUDES SUHAS (12/08/2023 7:51 AM CDT) Final Report No fungus isolated. [facility] SUHAS Prep No fungal elements seen. [facility] Bone STRUCTURE OF LEFT FOOT / Unknown 12/08/2023 7:51 AM CDT 12/08/2023 9:00 AM CDT Comment:2. Bone first metata rsal left foot Che Palomo [facility] MICROBIOLOGY Performing Organization Address [facility] Co de Phone Number [address] [address] * ANAEROBE CULTURE (12/08/2023 7:51 AM CDT) Final Report No anaerobes isolated. [facility] Bone STRUCTURE OF LEFT FOOT / Unknown 12/08/2023 7:51 AM CDT 12/08/2023 9:00 AM CDT Comment:2. Bone first metata rsal left foot Che L Beth [facility] MICROBIOLOGY Performing Organization Address [facility] Co de Phone Number [facility] [address] [address] * (ABNORMAL) TISSUE CULTURE:INCLUDES GRAM STAIN (12/08/2023 7:51 AM CDT) Final Report Positive Culture Few METHICILLIN RESISTANT Staphylococcus aureus (MRSA) isolated. 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 For susceptibility, see previous report on culture from wound culture collected 12/07/23. (POS) [facility] Organism METHICILLIN RESISTANT STAPHYLOCOCCUS AUREUS (MRSA)(POS) [facility] Gram Stain Report Corrected Report Positive Gram stain Rare PMN's seen. Rare gram positive cocci. Gram stain electronically reported to and acknowledged by: Dr. Healy Marker from OR at ??12/08/2023 10:09:09 by Jacklyn Easley MLS. Removed Pleomorphic gram variable bacilli from report. Results electronically reported to and acknowledged by: Dr. Igor Glover [facility] 12/09/2023 12:48:27. Elizabeth Schwartz MLS. (POS) [facility] Bone STRUCTURE OF LEFT FOOT / Unknown 12/08/2023 7:51 AM CDT 12/08/2023 9:00 AM CDT Comment:2. Bone first metata rsal left foot Che Palomo DP LAB MICROBIOLOGY Performing Organization Address [facility] Co de Phone Number [facility] [address] [address] * (ABNORMAL) TISSUE CULTURE:INCLUDES GRAM STAIN (12/08/2023 7:51 AM CDT) Final Report Positive Culture Few METHICILLIN RESISTANT Staphylococcus aureus (MRSA) isolated. 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 For susceptibility, see previous report on culture from wound culture collected 12/07/23. Rare Corynebacterium striatum group isolated. A member of the diphtheroid bacilli. (POS) [facility] Organism METHICILLIN RESISTANT STAPHYLOCOCCUS AUREUS (MRSA)(POS) [facility] Organism CORYNEBACTERIUM STRIATUM GROUP(POS) [facility] Gram Stain Report Positive Gram stain Rare PMN's seen. Rare gram positive cocci. Gram stain electronically reported to and acknowledged by: Dr. Healy Marker from OR at ??12/08/2023 10:09:09 by Jacklyn Easley MLS. (POS) [facility] Tissue FOOT STRUCTURE / Unknown 12/08/2023 7:51 AM CDT Comment:Add Aerobic Narrative [facility] - 12/10/2023 2:22 PM CDT Add Aerobic Che Mullent DPM LAB MICROBIOLOGY Performing Organization Address [facility] de Phone Number [address] [address] * FUNGUS CULTURE:INCLUDES SUHAS (12/08/2023 7:51 AM CDT) Final Report No fungus isolated. [facility] SUHAS Prep No fungal elements seen. [facility] Tissue FOOT STRUCTURE / Unknown 12/08/2023 7:51 AM CDT Comment:Add Aerobic Narrative [facility] - 01/05/2024 8:10 AM CDT Add Aerobic Chekatelin Mullent DPM LAB MICROBIOLOGY Performing Organization Address [facility] de Phone Number [facility] [address] [address] * ANAEROBE CULTURE (12/08/2023 7:51 AM CDT) Final Report No anaerobes isolated. [facility] Tissue FOOT STRUCTURE / Unknown 12/08/2023 7:51 AM CDT Comment:Add Aerobic Narrative [facility] - 12/14/2023 9:06 AM CDT Add Aerobic Che L Beth DPM LAB MICROBIOLOGY Performing Organization Address [facility]/State/ZIP Co de Phone Number [facility] [address] [address] * (ABNORMAL) POC GLUCOSE (12/08/2023 7:22 AM CDT) [facility] POC Glucose 236(H) 70 - 100 mg/dL [facility] POINT [facility]ARE Blood 12/08/2023 7:22 AM CDT Eusebio Vivar MD LABORATORY Performing Organization Address City/[facility]/ZIP Co de Phone Number [facility] [address] [place] [phone], * EXTRA TUBE - BLUE (12/07/2023 4:05 PM CDT) Pathologist [facility] BLUE TUBE [facility] Comment:Blue top(Sodium citr ate) tubes are kept for 3 days from the collection date. Blood 12/07/2023 4:05 PM CDT 12/07/2023 4:24 PM CDT Eusebio Vivar MD LABORATORY Performing Organization Address [facility] Co de Phone Number [facility] [address] [address] * EXTRA TUBE - DARK GREEN (12/07/2023 4:05 PM CDT) [facility] DARK GREEN TUBE Stored [facility] Comment:Dark Green tubes (Li thium Heparin) are stored in the lab for 1 day from the collection date. Blood 12/07/2023 4:05 PM CDT 12/07/2023 4:24 PM CDT Eusebio Vivar MD LABORATORY Performing Organization Address [facility] Co de Phone Number [facility] [address] [address] * (ABNORMAL) ED CHEMISTRY LABS(NA,K,CL,CO2,GLU,CREAT,CA-IONIZED,ANION GAP) (12/07/2023 4:05 PM CDT) [facility] Sodium 139 135 - 148 mmol/L [facility] Chloride 97 92 - 108 mmol/L [facility] AnGap 15 8 - 16 mmol/L [facility] Glucose 284(H) 70 - 100 mg/dL [facility] ICA, Actual 4.89 4.40 - 5.20 mg/dL [facility] ICA, pH Corrected 4.74 4.40 - 5.20 mg/dL [facility] Creatinine 1.26(H) 0.70 - 1.25 mg/dL [facility] BICARB 26 22 - 26 mEq/L [facility] eGFR (2020 CKD-EPI) 72 >=60 ml/min/1.7 3m2 [facility] Comment: The estimated glomerular filtration rate (eGFR) was calculated using the CKD-EPI 2020 creatinine equation, which does not include race as a factor. This equation is validated in individuals 18 years of age and older, and eGFR is normalized to a body surface area of 1.73m^2. Potassium 4.5 3.5 - 5.3 mmol/L [facility] Blood 12/07/2023 4:05 PM CDT 12/07/2023 4:27 PM CDT Eusebio Vivar MD LABORATORY [facility] [address] [place] [phone] * (ABNORMAL) CBC WITH PLTS/AUTO DIFF (12/07/2023 4:05 PM CDT) WBC 9.80 4.00 - 10.00 k/cmm [facility] RBC 4.08(L) 4.60 - 6.00 m/cmm [facility] Hgb 11.2(L) 13.1 - 17.5 g/dL [facility] Hematocrit 34.7(L) 40.0 - 51.0 % [facility] MCV 85.0 80.0 - 100.0 fL [facility] MCH 27.5 25.0 - 32.0 pg [facility] MCHC 32.3 31.0 - 36.0 g/dL [facility] RDW 13.7 11.5 - 14.5 % [facility] Plt 324 150 - 400 k/cmm [facility] MPV 9.4 6.5 - 12.5 fL [facility] Automated Abs Neutrophil 5.37 1.70 - 6.50 k/cmm [facility] Comment:Preliminary ANC, Fin al Result to Follow Abs Immature Granulocyte 0.12(H) 0.00 - 0.09 k/cmm [facility] Comment:The Immature Granulo cyte Absolute count contains metamyelocytes and myelocytes. Abs Neutrophil 5.37 1.70 - 6.50 k/cmm [facility] Abs Lymphocyte 2.61 0.80 - 4.00 k/cmm [facility] Abs Monocyte 1.32(H) 0.20 - 1.00 k/cmm [facility] Abs Eosinophil 0.34 0.00 - 0.60 k/cmm [facility] Abs Basophil 0.04 0.00 - 0.20 k/cmm [facility] Blood 12/07/2023 4:05 PM CDT 12/07/2023 4:51 PM CDT Eusebio Vivar MD LABORATORY Performing Organization Address City/[facility] Co de Phone Number [address] [address] * LACTATE (LACTIC ACID) (12/07/2023 4:05 PM CDT) Pathologist [facility] Lactate 2.1 0.7 - 2.1 mmol/L [facility] Blood 12/07/2023 4:05 PM CDT 12/07/2023 4:27 PM CDT Narrative [facility] - 12/07/2023 4:27 PM CDT Send specimen on ice! Eusebio Vivar MD LABORATORY [address] [address] * (ABNORMAL) C-REACTIVE PROTEIN (12/07/2023 4:05 PM CDT) C-Reactive Protein 82(H) <=4 mg/L [facility] Blood 12/07/2023 4:05 PM CDT 12/07/2023 4:51 PM CDT Eusebio Vivar MD LABORATORY Performing Organization Address [facility] Co de Phone Number [facility] [address] [address] * (ABNORMAL) SED RATE (ESR) (12/07/2023 4:05 PM CDT) Sed Rate 120(H) 2 - 10 mm/hr [facility] Blood 12/07/2023 4:05 PM CDT 12/07/2023 4:51 PM CDT Eusebio Vivar MD LABORATORY Performing Organization Address [facility] Co de Phone Number [address] [phone] * BLOOD AEROBIC/ANAEROBIC CULTURE (12/07/2023 4:05 PM CDT) Final Report No growth after 5 days. [facility] Blood (Peripheral) 12/07/2023 4:05 PM CDT 12/07/2023 7:55 PM CDT Eusebio iVvar MD LAB MICROBIOLOGY Performing Organization Address [facility] de Phone Number [address] [phone] documented in this encounter Visit Diagnoses Diagnosis [...] 0918 (Delayed (keeps Due time) - Provider: Ntaasha Vivar RN - Reason: Patient not in room - Comment: HBO)1003 (Dual Sign-Off - Provider: Natasha Vivar RN)1010 (Given - Provider: Natasha Vivar RN)1205 (Dual Sign-Off - Provider: Natasha Vivar RN)1209 [...] Natasha Vivar RN) 1036 (Given - Provider: Daowod Sargent RN) nicotine (NICOTROL) 14 mg/ 24hr [...] Vivar RN)1011 (Patch applied - Provider: Natasha Vivra RN) 1035 (Patch removed - Provider: Dawood Sargent RN)1036 (Patch applied - Provider: Dawood Sargent RN)1238 (Due: Patch removed - Provider: JENNIFER NARAYANAN, [facility] - Comment: Time automatically adjusted from [...]
--- OUTSIDE RECORDS SUMMARY | 2024-02-14 09:01 | XMS_ITS | Encounter Summary ---
Author Organization [facility] Address [address] [place] [phone] Phone Care Team Providers Care [employer]ous[employer] Upholsterer Name Role Phone Unavailable Primary Care Provider Unavailabl e Reason for Visit * Auth/Cert (Routine) Specialty Diagnoses / Procedures Referred By Katherine tidwell Referred To Contact SURGERY Diagnoses Other acute osteomyelitis of left foot ([facility]) Eusebio Vivar MD [address] [place] [phone] Or P4 [address] [place] [address] Referral ID Status Reason Start Date Expiration Date Visits Re quested Visits Authorized [id number] 1 1 Encounter Details Date Type Department Care Team (Late st Contact Info) Description 12/10/2023 10:39 AM CDT Anesthesia Event OR P4 [address] [place] [address] [phone] Clint White MD [address] [place] [address] [phone] Carly Jordan MD [address] [place] [address] [phone] Anesthesia Record Procedure Summary Procedure Name Responsible [...] 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 Plan discussed with ROOMING HOUSE INSPECTOR. Vitals: 12/10/23 0700 BP: 145/69 Pulse: 72 [...]
--- OUTSIDE RECORDS SUMMARY | 2024-02-14 09:02 | XMS_ITS | Encounter Summary ---
Author Organization [facility] [place] Address [address] [place] [address] Phone Care Team Providers Care Software Trainer Name Role Phone Unavailable Primary Care Provider Unavailabl e Reason for Visit * Auth/Cert (Routine) Specialty Diagnoses / Procedures Referred By Katherine tidwell Referred To Contact SURGERY Diagnoses Other acute osteomyelitis of left foot ([facility]) Eusebio Vivar MD [address] [place] [address] Or P4 [address] [place] [address] Referral ID Status Reason Start Date Expiration Date Visits Re quested Visits Authorized [id number] 1 1 Encounter Details Date Type Department Care Team (Late st Contact Info) Description 12/10/2023 9:49 AM CDT - 12/10/2023 11:34 AM CDT Surgery OR P4 [address] [place] [address] Suzy Patino DPM [address] [phone] REVISION, AMPUTATION SITE, POSSIBLE PARTIAL FOOT AMPUTATION, [...] on discharge due to cost/transport issues at [place]. HOSPITAL COURSE BY PROBLEM: Acute osteomyelitis of [...] 12/12 - discussed with PharmD. HTN: Continue SPEECH TEACHER amlodipine. Hyperlipidemia: Continue SPEECH TEACHER rosuvastatin. Tobacco use disorder: Continue NRT. Hx of TBI. Malnutrition Weight: (!) 139.9 kg (308 lb 6.8 oz) Wt Change from Previous: 0 Kg Wt Change from Admit: 0 Kg % Wt Change from Adm: 0 % Sel[place] Body Wt (IBW) Male (kg): 75.3 kg [...] Comments: Fax to Dr. Aretha Damon at [phone] PANEL HEPATIC FUNCTION Standing Status: Future Standing Exp. Date: 03/13/24 Order Comments: Fax to Dr. Aretha Damon at [phone] Scheduling Instructions: Hepatic Function Panel includes: Albumin, Alk Phos, ALT, AST, Direct Bilirubin, Total Bilirubin and Total Protein C-REACTIVE PROTEIN Standing Status: Future Standing Exp. Date: 03/13/24 Order Comments: Fax to Dr. Aretha Damon at [phone] CREATININE, SERUM Standing Status: Future Standing Exp. Date: 03/13/24 Order Comments: Fax to Dr. Aretha Damon at [phone] Referral to Physical Therapy Referral Priority: Routine [...] of plan of care? Yes Okay for Assisted Facility standing orders? Order Specific Question Answer Comments OK for Assisted Facility house standing orders? Yes Give Mantoux unless current or contraindicated. Scheduling Instructions: Please specify in comments! Resume previous standing orders per half-way policy Order Comments: Resume previous standing orders per half-way policy Scheduling Instructions: Please specify in comments! [...] equipment/supplies recommended: None Final discharge destination: Subacute half-way with rehab care R: The patient and [...] hesitate to call the Hyperbaric Department at [phone] during clinic hours or page home economist staff with any updates, questions, or concerns. [...] recent) Eusebio Perez PharmD 12/13/2023 21:07 Pager: ([employer]) * Emily Hannah RN - 12/13/2023 1:07 PM CDTSummary: Discharge planning Clinical Coordinator Update Patient is medically ready for discharge back to [facility]- since 12/11. Spoke to Tabatha at [facility] today ([phone]) who reported that the patient was not [...] () of patient departure: 12/13/2023 @1530 Destination: [address] [place] [address] Type of ride: wheelchair Transportation vendor of ride: [facility] [phone] * If this ride needs to be [...] Clinical Coordinators will be informed via a TelTMATq page. PCS form was completed in Progress [...] foot (CMS/HHS) Soft tissue infection Attending provider: Iogr Glover MD Insurance: [facility] Secondary insurance: [place] [employer] Height: Height: 180.3 cm (5' [...] hesitate to call the Hyperbaric Department at [phone] during clinic hours or page home economist staff with any updates, questions, or concerns. [...] 12/12 - discussed with PharmD. HTN: Continue SPEECH TEACHER amlodipine. Hyperlipidemia: Continue SPEECH TEACHER rosuvastatin. Tobacco use disorder: Continue NRT. Hx of TBI. FEN: Regular consistent carb diet. Code status: Full code. VTE prophylaxis: VTE prophylaxis with lovenox to start 12/10. Lines: No central line. No mujica. Discharge planning: Discharg to [facility] in [place] when they're able to accept him back.Possibly [...] Glover MD, 12/12/2023 2:02 PM Page via Locally * Narcisa Tobar MEDIA LAW FACULTY MEMBER - 12/12/2023 9:50 AM CDT . Care Management Follow-up Note Patient Name: Stephanie Low Date: 12/12/2023 Patient/Family Discharge Goals: Patient's Discharge Goal: back to [facility]' Discharge Goal: n/a Discharge Destination Expected [...] Selected Services Address Phone Fax Patient Preferred [facility] Pending - No Request Sent N/A [id number] [facility] [id number] -- Narcisa Tobar LGSW, 12/12/2023 9:50 AM * Aretha Damon MD - 12/12/2023 8:53 AM CDT ID PROGRESS NOTE Stephanie Low 1980 male [id number] ASSESSMENT: MRSA left foot osteomyelitis S/p I&D [...] 12/12 - discussed with PharmD. HTN: Continue SPEECH TEACHER amlodipine. Hyperlipidemia: Continue SPEECH TEACHER rosuvastatin. Tobacco use disorder: Continue NRT. Hx of TBI. FEN: Regular consistent carb diet. Code status: Full code. VTE prophylaxis: VTE prophylaxis with lovenox to start 12/10. Lines: No central line. No mujica. Discharge planning: Discharg to [facility] in [place] when they're able to accept him back.Possibly [...] Glover MD, 12/11/2023 7:34 PM Page via Locally * Eusebio Perez, PharmD - 12/11/2023 3:38 [...] recent) Eusebio Perez PharmD 12/11/2023 19:22 Pager: ([employer]) * Lizbeth Cavazos LICSW - 12/11/2023 2:41 PM CDT Weekend Inpatient Social Work Note Summary: Weekend SW paged by bedside RN to help facilitate coordination back to TCU today. GARY called Cruz Aguiar and left a voicemail. Many barriers are at play for a weekend return - patient hasIV antibiotics, he is recommended to receive 20 HBO sessions (1st today), and has [facility] Medicare Advantage (which requires prior authorization). GARY advised this likely cannot be resolved during the weekend due to the barriers listed above. Follow up needed: GARY will try to problem solve if [facility] Agui[facility] calls back, if not weekday team to follow up on plan for discharge. RAJ Cadena LICSW Inpatient Extension Educator - Casual (weekends only) Available via [employer] Lizbeth Cavazos LICSW, 12/11/2023 2:41 PM Addendum [id number]: GARY received update from attending physician sharing [...] hesitate to call the Hyperbaric Department at [phone] during clinic hours or page home economist staff with any updates, questions, or concerns. [...] of TBI --Patient is own [facility] RECOMMENDATIONS: 1. Dressing: Dressed with [...] continue to follow while admitted. Please page home economist resident with questions. Patient was discussed with home economist staff Interval history: Patient seen and evaluated [...] 12/12 - discussed with PharmD. HTN: Continue SPEECH TEACHER amlodipine. Hyperlipidemia: Continue SPEECH TEACHER rosuvastatin. Tobacco use disorder: Continue NRT. Hx of TBI. FEN: Regular consistent carb diet. Code status: Full code. VTE prophylaxis: VTE prophylaxis with lovenox to start 12/10. Lines: No central line. No mujica. 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 Denise Esteves Inpatient Clinical Coordinator [facility] Office: [phone] * Suzy Patino DPM - 12/10/2023 8:42 [...] of TBI --Patient is own [facility] RECOMMENDATIONS: 1. Dressing: Dressed in [...] continue to follow while admitted. Please page home economist resident with questions. Patient was discussed with home economist staff Interval history: Patient seen resting comfortably [...] 12/12 - discussed with PharmD. HTN: Continue SPEECH TEACHER amlodipine. Hyperlipidemia: Continue SPEECH TEACHER rosuvastatin. Tobacco use disorder: Continue NRT. Hx of TBI. FEN: Regular consistent carb diet. Code status: Full code. VTE prophylaxis: VTE prophylaxis with hep to start 12/08. Lines: No central line. No mujica. 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 [...] Glover MD, 12/09/2023 10:33 PM Page via Locally * David Mancuso, PharmD - 12/09/2023 3:54 [...] 12/09/2023 Expected DC Date: 12/10/2023 Social Information Back Office Medical Assistant Used: None needed Decision Maker at Admission: Self Living Situation: skilled nursing (see comment) Patient Identified Support System: sister, significant other Services Receiving: Waivered services (see comment) Complex Medical Needs: Other (see comment) (wound care) Transportation Used for Discharge: stretcher Safety Concerns: None Behavioral Health Concerns: None Patient Family Goals Patient's Discharge Goal: back to [facility] Family's Discharge Goal: n/a Plan/Interventions Expected Discharge Disposition: Assisted Facility Patient Information Verification Verified demographic information, including SSN, Next of Kin, and Guardianship: Yes Verified PCP: Yes If post-acute placement is needed, have vaccination status needs been addressed?: Not applicable Risks for Readmission: None Summary of pertinent information: Patient admitted from [facility] with concern for a left great to osteomyelitis that was resected 12/07. 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 Have a call out to [facility] to confirm bed hold ([phone]). Spoke to staff at his [facility] ([place]ie [phone]) to also update and confirm that he can return there when ultimately. Patient currently has started on HBO, this may be problematic with returning to [facility]. Emily Hannah RN, 12/09/2023 1:49 PM * Farida Rosenthal DPM - 12/09/2023 6:23 AM CDT Images from the original note were not included. Podiatric Surgery Inpatient Progress Note - PGY-3 Stephnaie Low : 1980 Sex: male Patient Summary: [...] of TBI --Patient is own [facility] RECOMMENDATIONS: 1. Dressing: Dressed with [...] continue to follow while inpatient Please page home economist resident with questions. Patient was discussed with home economist staff Interval history: Patient seen and evaluated [...] of TBI --Patient is own [facility] RECOMMENDATIONS: 1. Dressing: Dressed in [...] continue to follow while inpatient Please page home economist resident with questions. Patient was seen with home economist staff, Dr. Palomo Interval history: Patient is [...] male D: Stephanie Low was admitted to [address] from PACU at 1446 for Other acute osteomyelitis of leftfoot ([facility]) . Patient: alert, oriented to person, place [...] informed of Patient Valuables and Belongings Policy (#[id number]): Policy reviewed - patient/family/designee has indicated that [...] 12/12 - discussed with PharmD. HTN: Continue SPEECH TEACHER amlodipine. Hyperlipidemia: Continue SPEECH TEACHER rosuvastatin. Tobacco use disorder: Continue NRT. Hx of TBI. FEN: Regular consistent carb diet. Code status: Full code. VTE prophylaxis: VTE prophylaxis with hep to start 12/08. Lines: No central line. No mujica. 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 Reduce SPEECH TEACHER lantus to 15 U while NPO, Novolog 1U/CHO + LDSSI. Rechecking A1c. #HTN: SPEECH TEACHER amlodipine 10 mg daily #HLD: SPEECH TEACHER statin #Paranoid schizophrenia: SPEECH TEACHER prazosin #HILL: SPEECH TEACHER escitalopram 20 mg daily #Tobacco use disorder: [...] including pre-visit review of separately obtained history, [id number] interaction performing medically appropriate physical exam, patientcounseling/education, [...] from the original note were not included. [facility] follow up: [facility] Surgery has made recommendations. [facility] will defer to surgery and sign off. 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 Discharge [...] wound healing. Message sent to primary team. [facility] Nursing follow up: Appreciate the [...] identified. WOCN available Wednesday through Wednesday on [employer] or [phone] [facility] Nursing attempts to see patients in person when possible, but will at times complete a chart/media review in order to recommend wound treatment in a timely manner. Please reconsult [facility] if wound condition changes or [...] on service at PharmD General Weekend Days ([employer]) or [phone]. If no response within needed timeframe, please contact central pharmacy via phone at [phone]. Planned discharge medications are: Medication List Medications [...] NEW CONSULT NOTE Stephanie Low 1980 male [id number] REASON FOR CONSULT: I was asked to [...] Prior to recent hospitalization pt [facility] with [facility]. Was independent with mobility SUBJECTIVE [...] bearing restrictions, otherwise bed to chair only SPEECH TEACHER Appropriate: No (more OR) Participated in goal setting and treatment planning: Patient Agrees with goals and treatment plan: Question patient's ability to understand. Gracia Arredondo, PT 12/10/2023 Pager: [employer] PT Department * David Cortes MD - 12/09/2023 9:58 AM CDT Images from the original note were not included. [facility] HYPERBARIC MEDICINE CONSULTATION Referring clinician: Che Palomo [...] old poorly controlled DMII male referred to [facility] Hyperbaric medical team for consultation regarding concern [...] Hyperbaric Medicine to become a part of [facility]. Please do not hesitate to call the department at [phone] during clinic hours ([phone]) or page the home economist HYPERBARIC staff with any questions or concerns. [...] you for allowing us to participate in [facility] care. [place] [facility] Hyperbaric Medicine: [phone]. David Cortes MD * Angela Cardenas CWOCN - 12/08/2023 3:00 PM CDTAssociated Order(s): CONSULT TO WOUND NURSE Images from the original note were not included. [facility] Nursing consulted by nursing for perineal wounds. 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 Discharge [...] wound healing. Message sent to primary team. [facility] Nursing follow up: later this week after surgery sees Staff to continue to follow skin injury bundle. Escalate concerns to WOCN through additional consult or to the provider when barriers are identified. WOCN available Wednesday through Wednesday on [employer] or [phone] [facility] Nursing attempts to see patients [...] continue to follow while inpatient Please page home economist resident with questions. Patient was seen with home economist staff, Dr. Palomo CHIEF COMPLAINT: Left foot [...] OR Date: 12/10/2023 Surgeon: Suzy Patino DPM Landscape Photographer(s): Samina Singletary DPM PGY3 Pre-Op Diagnosis: Packed [...] 1980 Sex: male Surgeon: Che Palomo DPM Landscape Photographer(s): Niraj Lewis DPM PGY-3 Jf Sky, MS-4 [...] 2023 2242 Started nicotine gum PRN Started SPEECH TEACHER glargine and lispro The patient remained in the emergency department through the end of my shift. Their care was signedout [id number] with the oncoming provider. Dx, DDx, Assessment and Plan was discussed with Attending Emergency Medicine Physician. Final Clinical Impression 1. Other acute osteomyelitis of left foot ([facility]) Disposition and Plan Signed out to oncoming [...] in real time. Please contact me via [employer] staff message if you note any errors requiring clarification. * Farida Beyer RN - 12/07/2023 7:41 PM CDT Assumed care of pt. SNF director here as pt was reported missing when he did not return back from the clinic. Plan for admission with OR tomorrow. NPO at midnight, pt aware. * Allyssa Drummond MD - 12/07/2023 4:25 PM CDT Emergency Department Physician Note [facility] HISTORY Stephanie Low is a 43 [...] 1. Other acute osteomyelitis of left foot ([facility]) DISPOSITION & PLAN Patient remained in the [...] Toe Head to Toe Assessment Shift Summary [id number] Alert and oriented x3, unsure of the [...] Physical Therapy Inpatient Discharge Summary Stephanie Low [id number] Diagnosis Patient Active Problem List Diagnosis Fourniers [...] Therapist: Gracia Arredondo, PT Date: 12/14/2023 Pager: [facility] PT Department * Nursing Assessment - Kate Sarmiento RN - 12/14/2023 6:45 AM CDT Nursing Assessment Head to Toe Head to Toe Assessment Shift Summary Shift Summary [id number] Pt alert oriented and able to make [...] Toe Head to Toe Assessment Shift Summary [id number] Daily dressing change done per order, reported [...] Toe Head to Toe Assessment Shift Summary [id number] Alert and oriented x 4, able to [...] Toe Head to Toe Assessment Shift Summary [id number] Patient is alert and oriented x 4,RA.Vitals [...] amputation RLE - amputation Comments: R amputation SPEECH TEACHER Integumentary Assessment Within Defined Limits except for: [...] Toe Head to Toe Assessment Shift Summary [id number] Patient is alert and oriented x 4,RA.Vitals [...] 12/10/2023 6:30 PM PGY-1 [facility] Pager: [phone] * Nursing Assessment - May Torres RN [...] Singletary DPM - 12/10/2023 11:06 AM CDT [facility] Immediate Post Operative Note Note written: [...] Toe Head to Toe Assessment Shift Summary [id number] Alert and oriented x3, unsure of the [...] Head to Toe Assessment Shift Summary Night [id number] PT is AO x4. Able to make [...] Dennis RN - 12/08/2023 2:28 PM CDTSummary: [employer] automation developer PACU to IP Nursing Handoff Note S [...] Comments: RN: Cheryl Dennis RN Extension #: [id number] * Op Note Immediate - Niraj Lewis DPM - 12/08/2023 7:48 AM CDT [facility] Immediate Post Operative Note Note written: [...] 1. Other acute osteomyelitis of left foot ([facility]) Eusebio Vivar MD, 12/08/2023 12:16 AM * Interval Note Provider - Shayna Schreiber MD - 12/07/2023 8:53 PM CDT Handoff Communication Note for Hospital Admission Verbal handoff received from Dr. Drummond in [facility]. Patient Class: Inpatient Cardiac Monitoring: Not needed [...] CDT Other acute osteomyelitis of left foot ([facility]) REVISION, AMPUTATION SITE, LOWER EXTREMITY Urgent (< [...] CDT Other acute osteomyelitis of left foot ([facility]/HHS) PC CULTURE,BACTERIAL,D EFINITIVE,AEROBIC ANY SOURCE Routine 12/08/2023 7:51 AM CDT PC CULTURE,BACTERIAL,D EFINITIVE,AEROBIC ANY SOURCE Routine 12/08/2023 7:51 AM CDT Other acute osteomyelitis of left foot (CMS/HHS) PC CULTURE FUNGI ISOLATION W-WO PRESUMPTIVE ID SKIN OTH Routine 12/08/2023 7:51 AM CDT PC CULTURE FUNGI ISOLATION W-WO PRESUMPTIVE ID SKIN OTH Routine 12/08/2023 7:51 AM CDT Other acute osteomyelitis of left foot (CMS/[facility]) PC CULTURE SPECIMEN, ANAEROBIC Routine 12/08/2023 7:51 AM CDT PC CULTURE SPECIMEN, ANAEROBIC Routine 12/08/2023 7:51 AM CDT Other acute osteomyelitis of left foot ([facility]) POC GLUCOSE Routine 12/08/2023 7:22 AM CDT [...] POC Glucose 255(H) 70 - 100 mg/dL [facility] Blood 12/14/2023 11:2 9 AM CDT Eusebio Vivar MD LABORATORY [facility]ARE [address] [place] [address], * (ABNORMAL) POC GLUCOSE (12/14/2023 6:32 AM CDT) POC Glucose 186(H) 70 - 100 mg/dL [facility] POINT OF CARE Blood 12/14/2023 6:32 AM CDT Eusebio Vivar MD LABORATORY Performing Organization Address [facility] de Phone Number [facility] [place] [address], * (ABNORMAL) POC GLUCOSE (12/13/2023 9:05 PM CDT) POC Glucose 175(H) 70 - 100 mg/dL [facility] POINT OF [facility] Blood 12/13/2023 9:05 PM CDT Eusebio Vivar MD LABORATORY Performing Organization Address [facility] [place] [address], * VANCOMYCIN LEVEL (12/13/2023 5:24 PM CDT) Vancomycin 17.0 mcg/mL [facility] Comment:Expected Range (Trou gh): 10-20 mcg/ml Blood 12/13/2023 5:24 PM CDT 12/13/2023 5:46 PM CDT Narrative [facility] - 12/13/2023 6:34 PM CDT Please ensure trough level drawn prior to next vancomycin dose. Thank you Peak or trough:->Trough Eusebio KolbD LABORATORY Performing Organization Address City/[facility] Co de Phone Number [facility] [address] [address] * (ABNORMAL) POC GLUCOSE (12/13/2023 4:00 PM CDT) POC Glucose 153(H) 70 - 100 mg/dL [facility] POINT OF CARE Blood 12/13/2023 4:00 PM CDT Eusebio Viavr MD LABORATORY [facility] POINT [facility] [address] [place] [address], [place] * (ABNORMAL) POC GLUCOSE (12/13/2023 11:47 AM CDT) POC Glucose 271(H) 70 - 100 mg/dL [facility] POINT OF CARE Blood 12/13/2023 11:4 7 AM CDT Eusebio Vivar MD LABORATORY Performing Organization Address [facility]/ZIP Co de Phone Number [facility] [address] [place] [address], [place] * (ABNORMAL) POC GLUCOSE (12/13/2023 6:35 AM CDT) POC Glucose 204(H) 70 - 100 mg/dL [facility] POINT OF [facility] Blood 12/13/2023 6:35 AM CDT Eusebio Vivar MD LABORATORY Performing Organization Address [facility] Co de Phone Number [facility] [address] [place] [address], [place] * (ABNORMAL) POC GLUCOSE (12/12/2023 8:54 PM CDT) POC Glucose 170(H) 70 - 100 mg/dL [facility] POINT OF CARE Blood 12/12/2023 8:54 PM CDT Eusebio Vivar MD LABORATORY Performing Organization Address City/[facility]/ZIP Co de Phone Number [facility] POINT OF [facility] [address] [place] [address], [place] * (ABNORMAL) POC GLUCOSE (12/12/2023 4:10 PM CDT) POC Glucose 252(H) 70 - 100 mg/dL [facility] POINT OF CARE Blood 12/12/2023 4:10 PM CDT Eusebio Vivar MD LABORATORY Performing Organization Address [facility] Co de Phone Number [facility] [address] [place] [address], [place] * (ABNORMAL) POC GLUCOSE (12/12/2023 11:07 AM CDT) POC Glucose 200(H) 70 - 100 mg/dL [facility] POINT OF [facility] Blood 12/12/2023 11:0 7 AM CDT Eusebio Vivar MD LABORATORY Performing Organization Address [facility] Co de Phone Number [facility] [address] [place] [address], [place] * (ABNORMAL) POC GLUCOSE (12/12/2023 6:42 AM CDT) POC Glucose 185(H) 70 - 100 mg/dL [facility] Blood 12/12/2023 6:42 AM CDT Eusebio Vivar MD LABORATORY Performing Organization Address [facility] de Phone Number [facility] [address] [place] [address], [place] * (ABNORMAL) POC GLUCOSE (12/11/2023 9:10 PM CDT) POC Glucose 226(H) 70 - 100 mg/dL [facility] Blood 12/11/2023 9:10 PM CDT Eusebio Vivar MD LABORATORY Performing Organization Address [facility] Co de Phone Number [facility] [address] [place] [address], [place] * VANCOMYCIN LEVEL (12/11/2023 5:28 PM CDT) Vancomycin 19.6 mcg/mL [facility] Comment:Expected Range (Trou gh): 10-20 mcg/ml Blood 12/11/2023 5:28 PM CDT 12/11/2023 5:37 PM CDT Narrative [facility] - 12/11/2023 6:46 PM CDT Peak or trough:->Trough Igor Glover MD LABORATORY [facility] [address] [place] [address] * (ABNORMAL) POC GLUCOSE (12/11/2023 4:13 PM CDT) POC Glucose 173(H) 70 - 100 mg/dL [facility] Blood 12/11/2023 4:13 PM CDT Eusebio Vivar MD LABORATORY Performing Organization Address City/[facility] Co de Phone Number [facility] POINT OF [place] [address], [place] * (ABNORMAL) POC GLUCOSE (12/11/2023 11:43 AM CDT) POC Glucose 283(H) 70 - 100 mg/dL [facility] POINT OF [facility] Blood 12/11/2023 11:4 3 AM CDT Eusebio Vivar MD LABORATORY Performing Organization Address City/[facility] Co de Phone Number [facility] POINT [place] [address], [place] * (ABNORMAL) POC GLUCOSE (12/11/2023 10:28 AM CDT) POC Glucose 198(H) 70 - 100 mg/dL [facility]INT [facility] CARE Blood 12/11/2023 10:2 8 AM CDT Eusebio Vivar MD LABORATORY Performing Organization Address City/[facility]/ZIP Co de Phone Number [facility] POINT CARE [address] [place], [place] [address], [place] * (ABNORMAL) POC GLUCOSE (12/11/2023 6:41 AM CDT) POC Glucose 173(H) 70 - 100 mg/dL [facility] Blood 12/11/2023 6:41 AM CDT Eusebio Vivar MD LABORATORY [facility] [address] [place] [address], [place] * (ABNORMAL) CBC WITH PLTS/AUTO DIFF (12/11/2023 5:50 AM CDT) Pathologist [facility] WBC 8.72 4.00 - 10.00 k/cmm [facility] RBC 3.82(L) 4.60 - 6.00 m/cmm [facility] Hgb 10.6(L) 13.1 - 17.5 g/dL [facility] Hematocrit 32.4(L) 40.0 - 51.0 % [facility] MCV 84.8 80.0 - 100.0 fL [facility] MCH 27.7 25.0 - 32.0 pg [facility] MCHC 32.7 31.0 - 36.0 g/dL [facility] RDW 13.5 11.5 - 14.5 % [facility] Plt 400 150 - 400 k/cmm [facility] MPV 9.3 6.5 - 12.5 fL [facility] Automated Abs Neutrophil 4.22 1.70 - 6.50 k/cmm [facility] Comment:Preliminary ANC, Fin al Result to Follow Abs Immature Granulocyte 0.09 0.00 - 0.09 k/cmm [facility] Comment:The Immature Granulo cyte Absolute count contains metamyelocytes and myelocytes. Abs Neutrophil 4.22 1.70 - 6.50 k/cmm [facility] Abs Lymphocyte 2.59 0.80 - 4.00 k/cmm [facility] Abs Monocyte 1.00 0.20 - 1.00 k/cmm [facility] Abs Eosinophil 0.79(H) 0.00 - 0.60 k/cmm [facility] Abs Basophil 0.03 0.00 - 0.20 k/cmm [facility] Blood 12/11/2023 5:50 AM CDT 12/11/2023 6:26 AM CDT Igor Glover MD LABORATORY Performing Organization Address [facility] Co de Phone Number [facility] [address] [address] * (ABNORMAL) PANEL BASIC METABOLIC (BMP) (12/11/2023 5:50 AM CDT) CO2 25 22 - 30 mmol/L [facility] Glucose 178(H) 70 - 100 mg/dL [facility] BUN 9 6 - 20 mg/dL [facility] Creatinine 0.92 0.70 - 1.25 mg/dL [facility] Calcium 9.0 8.6 - 10.0 mg/dL [facility] Sodium 136 135 - 148 mmol/L [facility] Potassium 4.1 3.5 - 5.3 mmol/L [facility] Chloride 100 92 - 108 mmol/L [facility] eGFR (2020 CKD-EPI) 105 >=60 ml/min/1.7 3m2 [facility] Comment: The estimated glomerular filtration rate (eGFR) was calculated using the CKD-EPI 2020 creatinine equation, which does not include race as a factor. This equation is validated in individuals 18 years of age and older, and eGFR is normalized to a body surface area of 1.73m^2. AnGap 11 8 - 16 mmol/L [facility] Blood 12/11/2023 5:50 AM CDT 12/11/2023 6:25 AM CDT Igor Glover MD LABORATORY Performing Organization Address [facility] Co de Phone Number [facility] [address] [address] * (ABNORMAL) POC GLUCOSE (12/10/2023 9:03 PM CDT) POC Glucose 206(H) 70 - 100 mg/dL [facility] Blood 12/10/2023 9:03 PM CDT Eusebio Vivar MD LABORATORY [facility] [address] [place] [address], [place] * (ABNORMAL) POC GLUCOSE (12/10/2023 4:16 PM CDT) POC Glucose 341(H) 70 - 100 mg/dL [facility] Blood 12/10/2023 4:16 PM CDT Eusebio Vivar MD LABORATORY [facility] [address] [place] [address], [place] * XR CHEST 2 VIEWS PA [...] POC Glucose 194(H) 70 - 100 mg/dL [facility] Blood 12/10/2023 12:0 9 PM CDT Eusebio Vivar MD LABORATORY [facility] [address] [place] [address], * SURGICAL PATHOLOGY (12/10/2023 11:07 AM CDT) SURG PATH FINAL ?Surgical Pathology Report Collection Date: ?12/10/2023 11:07 CDT ? Ordering Physician: ? SUZY PATINO Received Date: ?12/10/2023 12:07 CDT ? Accession Number: ? [id number] ? Surgical Pathology Final Report Specimen Type: [...] Regalado M.D. Attending Pathologist. DDB/DDB 12.10.2023 13:39 [facility] AP Specimen FOOT STRUCTURE / Unknown 12/10/2023 11:07 AM CDT Comment:OR: Routine gross an d microscopic examination Tissue: 1st metatarsel left foot, cut margin Site: foot Additional clinical information: Suzy Patino DPM LAB PATHOLOGY [facility] [address] [address] * (ABNORMAL) POC GLUCOSE (12/10/2023 6:16 AM CDT) POC Glucose 228(H) 70 - 100 mg/dL [facility] Blood 12/10/2023 6:16 AM CDT Eusebio Vivar MD LABORATORY [facility] [address] [place] [address], * (ABNORMAL) CBC WITH PLTS/AUTO DIFF (12/10/2023 5:06 AM CDT) WBC 8.35 4.00 - 10.00 k/cmm [facility] RBC 3.81(L) 4.60 - 6.00 m/cmm [facility] Hgb 10.3(L) 13.1 - 17.5 g/dL [facility] Hematocrit 32.5(L) 40.0 - 51.0 % [facility] MCV 85.3 80.0 - 100.0 fL [facility] MCH 27.0 25.0 - 32.0 pg [facility] MCHC 31.7 31.0 - 36.0 g/dL [facility] RDW 13.4 11.5 - 14.5 % [facility] Plt 377 150 - 400 k/cmm [facility] MPV 9.4 6.5 - 12.5 fL [facility] Automated Abs Neutrophil 4.14 1.70 - 6.50 k/cmm [facility] Comment:Preliminary ANC, Fin al Result to Follow Abs Immature Granulocyte 0.08 0.00 - 0.09 k/cmm [facility] Comment:The Immature Granulo cyte Absolute count contains metamyelocytes and myelocytes. Abs Neutrophil 4.14 1.70 - 6.50 k/cmm [facility] Abs Lymphocyte 2.39 0.80 - 4.00 k/cmm [facility] Abs Monocyte 1.06(H) 0.20 - 1.00 k/cmm [facility] Abs Eosinophil 0.64(H) 0.00 - 0.60 k/cmm [facility] Abs Basophil 0.04 0.00 - 0.20 k/cmm [facility] Blood 12/10/2023 5:06 AM CDT 12/10/2023 5:40 AM CDT Igor Glover MD LABORATORY [facility] [address] [address] * (ABNORMAL) PANEL BASIC METABOLIC (BMP) (12/10/2023 5:06 AM CDT) CO2 26 22 - 30 mmol/L [facility] Glucose 204(H) 70 - 100 mg/dL [facility] BUN 11 6 - 20 mg/dL [facility] Creatinine 0.92 0.70 - 1.25 mg/dL [facility] Calcium 9.0 8.6 - 10.0 mg/dL [facility] Sodium 137 135 - 148 mmol/L [facility] Potassium 4.2 3.5 - 5.3 mmol/L [facility] Chloride 101 92 - 108 mmol/L [facility] eGFR (2020 CKD-EPI) 105 >=60 ml/min/1.7 3m2 [facility] Comment: The estimated glomerular filtration rate (eGFR) was calculated using the CKD-EPI 2020 creatinine equation, which does not include race as a factor. This equation is validated in individuals 18 years of age and older, and eGFR is normalized to a body surface area of 1.73m^2. AnGap 10 8 - 16 mmol/L [facility] Blood 12/10/2023 5:06 AM CDT 12/10/2023 5:40 AM CDT gIor Glover MD LABORATORY Performing Organization Address [facility] Co de Phone Number [facility] [address] [address] * (ABNORMAL) POC GLUCOSE (12/09/2023 9:18 PM CDT) POC Glucose 204(H) 70 - 100 mg/dL [facility] Blood 12/09/2023 9:18 PM CDT Eusebio Vivar MD LABORATORY Performing Organization Address [facility]/ZIP Co de Phone Number [facility] [address] [place] [address], * (ABNORMAL) PANEL BASIC METABOLIC (BMP) (12/09/2023 5:56 PM CDT) Sodium 134(L) 135 - 148 mmol/L [facility] Potassium 4.2 3.5 - 5.3 mmol/L [facility] Chloride 99 92 - 108 mmol/L [facility] CO2 23 22 - 30 mmol/L [facility] AnGap 12 8 - 16 mmol/L [facility] Glucose 246(H) 70 - 100 mg/dL [facility] BUN 13 6 - 20 mg/dL [facility] Creatinine 0.98 0.70 - 1.25 mg/dL [facility] Calcium 8.8 8.6 - 10.0 mg/dL [facility] eGFR (2020 CKD-EPI) 97 >=60 ml/min/1.7 3m2 [facility] Comment: The estimated glomerular filtration rate (eGFR) was calculated using the CKD-EPI 2020 creatinine equation, which does not include race as a factor. This equation is validated in individuals 18 years of age and older, and eGFR is normalized to a body surface area of 1.73m^2. Blood 12/09/2023 5:56 PM CDT 12/09/2023 6:26 PM CDT Igor Glover MD LABORATORY Performing Organization Address City/[facility]/ZIP Co de Phone Number [facility] [address] [address] * VANCOMYCIN LEVEL (12/09/2023 5:56 PM CDT) Pathologist [facility] Vancomycin 22.0 mcg/mL [facility] Comment:Expected Range (Trou gh): 10-20 mcg/ml Blood 12/09/2023 5:56 PM CDT 12/09/2023 6:26 PM CDT Narrative [facility] - 12/09/2023 8:14 PM CDT Peak or trough:->Trough Gwen Gamez PharmD LABORATORY [facility] [address] [address] * (ABNORMAL) POC GLUCOSE (12/09/2023 4:08 PM CDT) POC Glucose 231(H) 70 - 100 mg/dL [facility] POINT OF CARE Blood 12/09/2023 4:08 PM CDT Eusebio Vivar MD LABORATORY Performing Organization Address [facility] Co de Phone Number [facility] POINT OF [facility] [address] [place] [address], * (ABNORMAL) POC GLUCOSE (12/09/2023 11:13 AM CDT) POC Glucose 282(H) 70 - 100 mg/dL [facility] CARE Blood 12/09/2023 11:1 3 AM CDT Eusebio Vivar MD LABORATORY Performing Organization Address [facility] de Phone Number [facility] POINT [facility] [address] [place] [address], [place] * HBO TCO2 MEASUREMENT COMPLETE (12/09/2023 [...] Reg 2002; 10:198-207. Bridget QUIÑONEZ et al. [facility] 2009, Vol. 36(1). ? [place] 07/27/13 [...] POC Glucose 198(H) 70 - 100 mg/dL [facility] Blood 12/09/2023 6:43 AM CDT Eusebio Vivar MD LABORATORY Performing Organization Address City/[facility]/ZIP Co de Phone Number [facility] POINT OF CARE [address] [place] [address], [place] * (ABNORMAL) POC GLUCOSE (12/08/2023 9:10 PM CDT) Pathologist [facility] POC Glucose 268(H) 70 - 100 mg/dL [facility] Blood 12/08/2023 9:10 PM CDT Eusebio Vivar MD LABORATORY [facility] POINT OF CARE [address] [place] [address], [place] * (ABNORMAL) SED RATE (ESR) (12/08/2023 4:47 PM CDT) Sed Rate 120(H) 2 - 10 mm/hr [facility] Blood 12/08/2023 4:47 PM CDT 12/08/2023 5:07 PM CDT Suzy Shafer PA-C LABORATORY Performing Organization Address [facility] Co de Phone Number [facility] [address] [address] * (ABNORMAL) PANEL BASIC METABOLIC (BMP) (12/08/2023 4:47 PM CDT) Sodium 134(L) 135 - 148 mmol/L [facility] Potassium 4.0 3.5 - 5.3 mmol/L [facility] Chloride 98 92 - 108 mmol/L [facility] CO2 24 22 - 30 mmol/L [facility] AnGap 12 8 - 16 mmol/L [facility] Glucose 247(H) 70 - 100 mg/dL [facility] BUN 16 6 - 20 mg/dL [facility] Creatinine 0.98 0.70 - 1.25 mg/dL [facility] Calcium 8.7 8.6 - 10.0 mg/dL [facility] eGFR (2020 CKD-EPI) 97 >=60 ml/min/1.7 3m2 [facility] Comment: The estimated glomerular filtration rate (eGFR) was calculated using the CKD-EPI 2020 creatinine equation, which does not include race as a factor. This equation is validated in individuals 18 years of age and older, and eGFR is normalized to a body surface area of 1.73m^2. Blood 12/08/2023 4:47 PM CDT 12/08/2023 5:07 PM CDT Suzy Shafer PA-C LABORATORY Performing Organization Address [facility] Co de Phone Number [facility] [address] [address] * (ABNORMAL) GLYCOSYLATED HGB - A1C (12/08/2023 4:47 PM CDT) Hemoglobin A1C 8.5(H) 4.0 - 5.6 % [facility] Comment: Increased risk for diabetes (prediabetes): 5.7-6.4% Diabetes >=6.5% In the absence of unequivocal hyperglycemia, diagnosis requires two abnormal test results (i.e. HbA1c and glucose) or two abnormal results from specimens collected at two different timepoints. The presence of some hemoglobin variants or red cell disorders may interfere with the measurement of hemoglobin A1c (HbA1c). Estimated Average Glucose 197(H) 68 - 114 [facility] Comment: The estimated Average Glucose (eAG) was calculated using an equation derived from a study of 507 adults with type 1, type 2, or no diabetes. Minority populations were underrepresented and children were not included. The eAG is not equivalent to a fasting glucose concentration. Blood 12/08/2023 4:47 PM CDT 12/08/2023 5:07 PM CDT Narrative [facility] - 12/08/2023 6:01 PM CDT If not done in the last 30 days. Suzy Shafer PA-C LABORATORY Performing Organization Address [facility] Co de Phone Number [facility] [address] [address] * (ABNORMAL) CBC WITH PLATELET (12/08/2023 4:47 PM CDT) WBC 10.39(H) 4.00 - 10.00 k/cmm [facility] RBC 3.59(L) 4.60 - 6.00 m/cmm [facility] Hgb 9.8(L) 13.1 - 17.5 g/dL [facility] Hematocrit 30.8(L) 40.0 - 51.0 % [facility] MCV 85.8 80.0 - 100.0 fL [facility] MCH 27.3 25.0 - 32.0 pg [facility] MCHC 31.8 31.0 - 36.0 g/dL [facility] RDW 13.5 11.5 - 14.5 % [facility] Plt 314 150 - 400 k/cmm [facility] MPV 9.3 6.5 - 12.5 fL [facility] Blood 12/08/2023 4:47 PM CDT 12/08/2023 5:07 PM CDT Suzy Shafer PA-C LABORATORY Performing Organization Address [facility]/ZIP Co de Phone Number [facility] [address] [address] * (ABNORMAL) C-REACTIVE PROTEIN (12/08/2023 4:47 PM CDT) C-Reactive Protein 77(H) <=4 mg/L [facility] Blood 12/08/2023 4:47 PM CDT 12/08/2023 5:07 PM CDT Suzy Shafer PA-C LABORATORY [facility] [address] [place] [address] * (ABNORMAL) POC GLUCOSE (12/08/2023 4:20 PM CDT) POC Glucose 204(H) 70 - 100 mg/dL [facility] POINT OF [facility] Blood 12/08/2023 4:20 PM CDT Eusebio Vivar MD LABORATORY Performing Organization Address City/[facility]/ZIP Co de Phone Number [facility] POINT OF [facility] [address] [place] [address], [place] * (ABNORMAL) POC GLUCOSE (12/08/2023 12:35 PM CDT) POC Glucose 227(H) 70 - 100 mg/dL [facility] POINT [facility] Blood 12/08/2023 12:3 5 PM CDT Eusebio Vivar MD LABORATORY [facility] POINT OF [facility] [address] [place] [address], [place] * (ABNORMAL) POC GLUCOSE (12/08/2023 10:02 AM CDT) POC Glucose 263(H) 70 - 100 mg/dL [facility] POINT OF CARE Blood 12/08/2023 10:0 2 AM CDT Eusebio Vivar MD LABORATORY [facility] [address] [place] [address], [place] * XR FOOT LEFT 3 V [...] POC Glucose 214(H) 70 - 100 mg/dL [facility] Blood 12/08/2023 8:32 AM CDT Eusebio Vivar MD LABORATORY [facility] [address] [place] [address], * SURGICAL PATHOLOGY (12/08/2023 7:56 AM CDT) SURG PATH FINAL ?Surgical Pathology Report Collection Date: ?12/08/2023 07:56 CDT ?Ordering Physician: ? CHE PALOMO Received Date: ?12/08/2023 08:41 CDT ?Accession Number: ? [id number] ? Surgical Pathology Final Report Specimen Type: [...] specimen reveals a yellow, trabeculated cut surface. Lab Head sections are submitted following decalcification as follows: A1: Resection margin, en face A2: Full cross-section of metatarsal head (DDB) DDB/DDB 12.08.2023 9:52 Microscopic Description: Microscopic examination performed and findings are reflected in the final diagnosis. I personally examined the relevant preparations and rendered and confirmed the diagnosis. ? Signed - Tootie Mackenzie M.D. Attending Pathologist. DDB/DDB 12.08.2023 9:52 [facility] AP Specimen FOOT STRUCTURE / Unknown 12/08/2023 7:56 AM CDT Comment:OR: Routine gross an d microscopic examination Tissue: Left first metatarsal head Site: left foot Additional clinical information: evaluate cut side for osteomyelitis Che Palomo [facility] LAB PATHOLOGY Performing Organization Address [facility] de Phone Number [address] [address] * FUNGUS CULTURE:INCLUDES SUHAS (12/08/2023 7:51 AM CDT) Final Report No fungus isolated. [facility] SUHAS Prep No fungal elements seen. [facility] Bone STRUCTURE OF LEFT FOOT / Unknown 12/08/2023 7:51 AM CDT 12/08/2023 9:00 AM CDT Comment:2. Bone first metata rsal left foot Chekatelin Mullent DP LAB MICROBIOLOGY Performing Organization Address [facility] Co de Phone Number [address] [address] * ANAEROBE CULTURE (12/08/2023 7:51 AM CDT) Final Report No anaerobes isolated. [facility] Bone STRUCTURE OF LEFT FOOT / Unknown 12/08/2023 7:51 AM CDT 12/08/2023 9:00 AM CDT Comment:2. Bone first metata rsal left foot Chekatelin Mullent DP LAB MICROBIOLOGY Performing Organization Address [facility] Co de Phone Number [address] [address] * (ABNORMAL) TISSUE CULTURE:INCLUDES GRAM STAIN (12/08/2023 7:51 AM CDT) Final Report Positive Culture Few METHICILLIN RESISTANT Staphylococcus aureus (MRSA) isolated. 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 For susceptibility, see previous report on culture from wound culture collected 12/07/23. (POS) [facility] Organism METHICILLIN RESISTANT STAPHYLOCOCCUS AUREUS (MRSA)(POS) [facility] Gram Stain Report Corrected Report Positive Gram stain Rare PMN's seen. Rare gram positive cocci. Gram stain electronically reported to and acknowledged by: Dr. Niraj Lewis from OR at ??12/08/2023 10:09:09 by Jacklyn Easley MLS. Removed Pleomorphic gram variable bacilli from report. Results electronically reported to and acknowledged by: [facility] [place] 12/09/2023 12:48:27. Elizabeth Schwartz MLS. (POS) [facility] Bone STRUCTURE OF LEFT FOOT / Unknown 12/08/2023 7:51 AM CDT 12/08/2023 9:00 AM CDT Comment:2. Bone first metata rsal left foot [facility] MICROBIOLOGY [facility] [address] [address] * (ABNORMAL) TISSUE CULTURE:INCLUDES GRAM STAIN (12/08/2023 7:51 AM CDT) Final Report Positive Culture Few METHICILLIN RESISTANT Staphylococcus aureus (MRSA) isolated. 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 For susceptibility, see previous report on culture from wound culture collected 12/07/23. Rare Corynebacterium striatum group isolated. A member of the diphtheroid bacilli. (POS) [facility] Organism METHICILLIN RESISTANT STAPHYLOCOCCUS AUREUS (MRSA)(POS) [facility] Organism CORYNEBACTERIUM STRIATUM GROUP(POS) [facility] Gram Stain Report Positive Gram stain Rare PMN's seen. Rare gram positive cocci. Gram stain electronically reported to and acknowledged by: Dr. Niraj Lewis from OR at ??12/08/2023 10:09:09 by Jacklyn Easley MLS. (POS) [facility] Tissue FOOT STRUCTURE / Unknown 12/08/2023 7:51 AM CDT Comment:Add Aerobic Narrative [facility] - 12/10/2023 2:22 PM CDT Add Aerobic Che L Beth DPM LAB MICROBIOLOGY Performing Organization Address [facility] Co de Phone Number [facility] [address] [id number] * FUNGUS CULTURE:INCLUDES SUHAS (12/08/2023 7:51 AM CDT) Final Report No fungus isolated. [facility] SUHAS Prep No fungal elements seen. [facility] Tissue FOOT STRUCTURE / Unknown 12/08/2023 7:51 AM CDT Comment:Add Aerobic Narrative [facility] - 01/05/2024 8:10 AM CDT Add Aerobic Che L Beth DPM LAB MICROBIOLOGY Performing Organization Address [facility] Co de Phone Number [facility] [address] [address] * ANAEROBE CULTURE (12/08/2023 7:51 AM CDT) Final Report No anaerobes isolated. [facility] Tissue FOOT STRUCTURE / Unknown 12/08/2023 7:51 AM CDT Comment:Add Aerobic Narrative [facility] - 12/14/2023 9:06 AM CDT Add Aerobic Che L Beth DPM LAB MICROBIOLOGY Performing Organization Address [facility] Co de Phone Number [facility] [address] [address] * (ABNORMAL) POC GLUCOSE (12/08/2023 7:22 AM CDT) POC Glucose 236(H) 70 - 100 mg/dL [facility] - POINT OF CARE Blood 12/08/2023 7:22 AM CDT Eusebio Vivar MD LABORATORY Performing Organization Address [facility]/ZIP Co de Phone Number [facility] [place] - POINT OF CARE [address] [place] [address], * EXTRA TUBE - BLUE (12/07/2023 4:05 PM CDT) BLUE TUBE [facility] Comment:Blue top(Sodium citr ate) tubes are kept for 3 days from the collection date. Blood 12/07/2023 4:05 PM CDT 12/07/2023 4:24 PM CDT Eusebio Vivar MD LABORATORY Performing Organization Address [facility] Co de Phone Number [facility] [place] [address] * EXTRA TUBE - DARK GREEN (12/07/2023 4:05 PM CDT) DARK GREEN TUBE Stored [facility] Comment:Dark Green tubes (Li thium Heparin) are stored in the lab for 1 day from the collection date. Blood 12/07/2023 4:05 PM CDT 12/07/2023 4:24 PM CDT Eusebio Vivar MD LABORATORY Performing Organization Address [facility] Co de Phone Number [facility] [address] [address] * (ABNORMAL) ED CHEMISTRY LABS(NA,K,CL,CO2,GLU,CREAT,CA-IONIZED,ANION GAP) (12/07/2023 4:05 PM CDT) Sodium 139 135 - 148 mmol/L [facility] Chloride 97 92 - 108 mmol/L [facility] AnGap 15 8 - 16 mmol/L [facility] Glucose 284(H) 70 - 100 mg/dL [facility] ICA, Actual 4.89 4.40 - 5.20 mg/dL [facility] ICA, pH Corrected 4.74 4.40 - 5.20 mg/dL [facility] Creatinine 1.26(H) 0.70 - 1.25 mg/dL [facility] BICARB 26 22 - 26 mEq/L [facility] eGFR (2020 CKD-EPI) 72 >=60 ml/min/1.7 3m2 [facility] Comment: The estimated glomerular filtration rate (eGFR) was calculated using the CKD-EPI 2020 creatinine equation, which does not include race as a factor. This equation is validated in individuals 18 years of age and older, and eGFR is normalized to a body surface area of 1.73m^2. Potassium 4.5 3.5 - 5.3 mmol/L [facility] Blood 12/07/2023 4:05 PM CDT 12/07/2023 4:27 PM CDT Eusebio Vivar MD LABORATORY [facility] [address] [address] * (ABNORMAL) CBC WITH PLTS/AUTO DIFF (12/07/2023 4:05 PM CDT) WBC 9.80 4.00 - 10.00 k/cmm [facility] RBC 4.08(L) 4.60 - 6.00 m/cmm [facility] Hgb 11.2(L) 13.1 - 17.5 g/dL [facility] Hematocrit 34.7(L) 40.0 - 51.0 % [facility] MCV 85.0 80.0 - 100.0 fL [facility] MCH 27.5 25.0 - 32.0 pg [facility] MCHC 32.3 31.0 - 36.0 g/dL [facility] RDW 13.7 11.5 - 14.5 % [facility] Plt 324 150 - 400 k/cmm [facility] MPV 9.4 6.5 - 12.5 fL [facility] Automated Abs Neutrophil 5.37 1.70 - 6.50 k/cmm [facility] Comment:Preliminary ANC, Fin al Result to Follow Abs Immature Granulocyte 0.12(H) 0.00 - 0.09 k/cmm [facility] Comment:The Immature Granulo cyte Absolute count contains metamyelocytes and myelocytes. Abs Neutrophil 5.37 1.70 - 6.50 k/cmm [facility] Abs Lymphocyte 2.61 0.80 - 4.00 k/cmm [facility] Abs Monocyte 1.32(H) 0.20 - 1.00 k/cmm [facility] Abs Eosinophil 0.34 0.00 - 0.60 k/cmm [facility] Abs Basophil 0.04 0.00 - 0.20 k/cmm [facility] Blood 12/07/2023 4:05 PM CDT 12/07/2023 4:51 PM CDT Eusebio Vivar MD LABORATORY Performing Organization Address City/[facility]/ZIP Co de Phone Number [facility] [address] [address] * LACTATE (LACTIC ACID) (12/07/2023 4:05 PM CDT) Pathologist [facility] Lactate 2.1 0.7 - 2.1 mmol/L [facility] Blood 12/07/2023 4:05 PM CDT 12/07/2023 4:27 PM CDT Narrative [facility] - 12/07/2023 4:27 PM CDT Send specimen on ice! Eusebio Vivar MD LABORATORY Performing Organization Address [facility] Co de Phone Number [address] [address] * (ABNORMAL) C-REACTIVE PROTEIN (12/07/2023 4:05 PM CDT) C-Reactive Protein 82(H) <=4 mg/L [facility] Blood 12/07/2023 4:05 PM CDT 12/07/2023 4:51 PM CDT Eusebio Vivar MD LABORATORY Performing Organization Address [facility] Co de Phone Number [facility] [address] [address] * (ABNORMAL) SED RATE (ESR) (12/07/2023 4:05 PM CDT) Sed Rate 120(H) 2 - 10 mm/hr [facility] Blood 12/07/2023 4:05 PM CDT 12/07/2023 4:51 PM CDT Eusebio Vivar MD LABORATORY Performing Organization Address [facility] Co de Phone Number [facility] [address] [address] * BLOOD AEROBIC/ANAEROBIC CULTURE (12/07/2023 4:05 PM CDT) Final Report No growth after 5 days. [facility] Blood (Peripheral) 12/07/2023 4:05 PM CDT 12/07/2023 7:55 PM CDT Eusebio Vivar MD LAB MICROBIOLOGY Performing Organization Address [facility] de Phone Number [facility] [address] [address] documented in this encounter Visit Diagnoses Diagnosis [...] 2000, Until Discontinued 918 (Given - Provider: Sravnai Rosado RN)2102 (Given - Provider: Susie Matson, [...] 0920 (Delayed (keeps Due time) - Provider: Natasah Vivar RN - Reason: Patient not in room - Comment: HBO)1007 (Patch removed - Provider: Natasha Vivar RN)1011 (Patch applied - Provider: Natasha Vivar RN) 1035 (Patch removed - Provider: Dawood Sargent RN)1036 (Patch applied - Provider: Dawood Sargent RN)1238 (Due: Patch removed - Provider: JENNIFER NARAYANAN, [facility] - Comment: Time automatically adjusted from order [...] Sravani Rosado RN)1703 (Given - Provider: Sravani Rsoado RN)1845 (Given - Provider: Dawood Sargent, SABINE) [...]
--- OUTSIDE RECORDS SUMMARY | 2024-02-14 09:02 | XMS_ITS | Encounter Summary ---
Author Organization [facility] Address [address] [place] [phone] Phone Care Team Providers Care Volunteer Services Supervisor Name Role Phone Unavailable Primary Care Provider Unavailabl e Reason for Visit * Auth/Cert (Routine) Specialty Diagnoses / Procedures Referred By Katherine tidwell Referred To Contact SURGERY Diagnoses Other acute osteomyelitis of left foot ([facility]) Eusebio Vivar MD [address] [place] [id number] Or P4 [address] [place] [id number] Referral ID Status Reason Start Date Expiration Date Visits Re quested Visits Authorized [id number] 1 1 Encounter Details Date Type Department Care Team (Late st Contact Info) Description 12/08/2023 7:28 AM CDT Anesthesia Event OR P4 [address] [place] [address] [phone] Dontae Higgins MD [address] [place], [place] [address] Carly Jordan MD [address] [place], [place] [phone] Anesthesia Record Procedure Summary Procedure Name Responsible [...] [facility] Anest[facility] type: General () Patient location: [...] GI - negative ROS Hematologic/Onc (+) anemia /Renal/Change Release Manager - negative ROS Airway Mallampati: II TM distance: >3 FB Neck ROM: full Mouth Opening: good Dental - normal exam OB Other Physical Exam Anesthesia Plan ASA 2 MAC Post-op Care: routine analgesia Anesthetic plan and risks discussed with patient. Plan discussed with GEOGRAPHIC INFORMATION SYSTEM SURVEYOR. Vitals: 12/08/23 0618 BP: 157/81 Pulse: 61 [...]
--- OUTSIDE RECORDS SUMMARY | 2024-02-14 09:02 | XMS_ITS | Encounter Summary ---
Author Organization [facility] Address [address] [place] [address] Phone Care Team Providers Care Outside Operator Name Role Phone Unavailable Primary Care Provider Unavailabl e Reason for Visit * Auth/Cert (Routine) Specialty Diagnoses / Procedures Referred By Katherine tidwell Referred To Contact SURGERY Diagnoses Other acute osteomyelitis of left foot ([facility]) Eusebio Vivar MD [address] [place] [address] Or P4 [address] [place] [address] Referral ID Status Reason Start Date Expiration Date Visits Re quested Visits Authorized [id number] 1 1 Encounter Details Date Type Department Care Team ([facility] st Contact Info) Description 12/08/2023 7:35 AM CDT - 12/08/2023 9:13 AM CDT Surgery OR P4 [address] [place] [address] Che Palomo DPM [address] [address] PARTIAL AMPUTATION FOOT Social History [...] on discharge due to cost/transport issues at [place]. HOSPITAL COURSE BY PROBLEM: Acute osteomyelitis of [...] wound and tissue cultures - NWB to [facility] - F/U podiatry clinic in a [...] 12/12 - discussed with PharmD. 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 Hyperlipidemia: Continue SEAT COVER INSTALLER rosuvastatin. Tobacco use disorder: Continue NRT. Hx of TBI. Malnutrition Weight: (!) 139.9 kg (308 lb 6.8 oz) Wt Change from Previous: 0 Kg Wt Change from Admit: 0 Kg % Wt Change from Adm: 0 % Tererro Body Wt (IBW) Male (kg): 75.3 kg [...] Comments: Fax to Dr. Aretha Damon at [phone] PANEL HEPATIC FUNCTION Standing Status: Future Standing Exp. Date: 03/13/24 Order Comments: Fax to Dr. Aretha Damon at [phone] Scheduling Instructions: Hepatic Function Panel includes: Albumin, Alk Phos, ALT, AST, Direct Bilirubin, Total Bilirubin and Total Protein C-REACTIVE PROTEIN Standing Status: Future Standing Exp. Date: 03/13/24 Order Comments: Fax to Dr. Aretha Damon at [phone] CREATININE, SERUM Standing Status: Future Standing Exp. Date: 03/13/24 Order Comments: Fax to Dr. Aretha Damon at [phone] Referral to Physical Therapy Referral Priority: Routine [...] of plan of care? Yes Okay for Jail Facility standing orders? Order Specific Question Answer Comments OK for Jail Facility house standing orders? Yes Give Mantoux [...] hesitate to call the Hyperbaric Department at [phone] during clinic hours or page recreational facilities motel manager staff with any updates, questions, or [...] recent) Eusebio Perez, PharmJaneen 12/13/2023 21:07 Pager: (TelLABOMAR) * Emily Hannah RN - 12/13/2023 1:07 PM CDTSummary: Discharge planning Clinical Coordinator Update Patient is medically ready for discharge back to [facility]- since 12/11. Spoke to Tabatha at [facility] today ([phone]) who reported that the patient was not [...] () of patient departure: 12/13/2023 @1530 Destination: [address] [place] [address] Type of ride: wheelchair Transportation vendor of ride: [facility] [phone] * If this ride needs to be [...] Clinical Coordinators will be informed via a TelLABOMAR page. PCS form was completed in Progress [...] infection Attending provider: Igor Glover MD Insurance: [facility] Secondary insurance: [place] [employer] Height: Height: [...] hesitate to call the Hyperbaric Department at [phone] during clinic hours or page recreational facilities motel manager staff with any updates, questions, or [...] 12/12 - discussed with PharmD. 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 Hyperlipidemia: Continue SEAT COVER INSTALLER rosuvastatin. Tobacco use disorder: Continue NRT. Hx of TBI. FEN: Regular consistent carb diet. Code status: Full code. VTE prophylaxis: VTE prophylaxis with lovenox to start 12/10. Lines: No central line. No mujica. Discharge planning: Discharg to [facility] in [place] when they're able to accept him back.Possibly [...] Glover MD, 12/12/2023 2:02 PM Page via [employer] * Narcisa Tobar CLIENT SERVICES ASSOCIATE - 12/12/2023 9:50 AM CDT . Care Management Follow-up Note Patient Name: Stephanie Low Date: 12/12/2023 Patient/Family Discharge Goals: Patient's Discharge Goal: back to [facility] Family's Discharge Goal: n/a Discharge Destination Expected [...] Selected Services Address Phone Fax Patient Preferred [facility] Pending - No Request Sent N/A [id number] [facility] [address] -- Narcisa Tobar LGSW, 12/12/2023 9:50 AM * Aretha Damon MD - 12/12/2023 8:53 AM CDT ID PROGRESS NOTE Stephanie Low 1980 male [id number] ASSESSMENT: MRSA left foot osteomyelitis S/p I&D [...] 12/12 - discussed with PharmD. 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 Hyperlipidemia: Continue SEAT COVER INSTALLER rosuvastatin. Tobacco use disorder: Continue NRT. Hx of TBI. FEN: Regular consistent carb diet. Code status: Full code. VTE prophylaxis: VTE prophylaxis with lovenox to start 12/10. Lines: No central line. No mujica. Discharge planning: Discharg to [facility] in [place] when they're able to accept him back.Possibly [...] Glover MD, 12/11/2023 7:34 PM Page via [employer] * Eusebio Perez, PharmD - 12/11/2023 3:38 [...] recent) Eusebio Perez, Jaxon 12/11/2023 19:22 Pager: (TelCoridonq) * Lizbeth Cavazos LICSW - 12/11/2023 2:41 PM CDT Weekend Inpatient Social Work Note Summary: Weekend SW paged by bedside RN to help facilitate coordination back to TCU today. SW called Cruz Aguiar and left a voicemail. Many barriers are at play for a weekend return - patient hasIV antibiotics, he is recommended to receive 20 HBO sessions (1st today), and has [facility] Medicare Advantage (which requires prior authorization). GARY advised this likely cannot be resolved during the weekend due to the barriers listed above. Follow up needed: GARY will try to problem solve if Cruz Aguiar calls back, if not weekday team to follow up on plan for discharge. RAJ Cadena LICSW Inpatient [employer] Consultant - Casual (weekends only) Available via [employer] Lizbeth Cavazos LICSW, 12/11/2023 2:41 PM Addendum 1550: GARY received update from attending physician sharing [...] hesitate to call the Hyperbaric Department at [phone] during clinic hours or page recreational facilities motel manager staff with any updates, questions, or [...] continue to follow while admitted. Please page recreational facilities motel manager resident with questions. Patient was discussed with recreational facilities motel manager staff Interval history: Patient seen and evaluated [...] 12/12 - discussed with PharmD. 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 Hyperlipidemia: Continue SEAT COVER INSTALLER rosuvastatin. Tobacco use disorder: Continue NRT. Hx of TBI. FEN: Regular consistent carb diet. Code status: Full code. VTE prophylaxis: VTE prophylaxis with lovenox to start 12/10. Lines: No central line. No mujica. Discharge planning: Discharged to [facility] on 11/24 after admission for Demar's [...] Note: 12/10/23 1156 Rapid Rounds Attendance Physician;Charge nurse;senior accounting manager;fiber glass worker;Bedside nurse Expected Discharge Disposition SNF Today [...] to discharge. Denise Esteves Inpatient Clinical Coordinator [facility] Office: [phone] * Suzy Patino DPM - 12/10/2023 8:42 [...] Schizophrenia History of TBI --Patient is own [facility] RECOMMENDATIONS: 1. Dressing: Dressed in OR [...] continue to follow while admitted. Please page recreational facilities motel manager resident with questions. Patient was discussed with recreational facilities motel manager staff Interval history: Patient seen resting comfortably [...] 12/12 - discussed with PharmD. 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 Hyperlipidemia: Continue SEAT COVER INSTALLER rosuvastatin. Tobacco use disorder: Continue NRT. Hx of TBI. FEN: Regular consistent carb diet. Code status: Full code. VTE prophylaxis: VTE prophylaxis with hep to start 12/08. Lines: No central line. No mujica. 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 [...] 12/09/2023 Expected DC Date: 12/10/2023 Social Information Histologist Technologist Used: None needed Decision Maker at Admission: Self Living Situation: [facility] (see comment) Patient Identified Support System: sister, significant other Services Receiving: Waivered services (see comment) Complex Medical Needs: Other (see comment) (wound care) Transportation Used for Discharge: stretcher Safety Concerns: None Behavioral Health Concerns: None Patient Family Goals Patient's Discharge Goal: back to [facility] Family' Discharge Goal: n/a Plan/Interventions Expected Discharge Disposition: Jail Facility Patient Information Verification Verified demographic information, including SSN, Next of Kin, and Guardianship: Yes Verified PCP: Yes If post-acute placement is needed, have vaccination status needs been addressed?: Not applicable Risks for Readmission: None Summary of pertinent information: Patient admitted from [facility] with concern for a left great to osteomyelitis that was resected 12/07. 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 Have a call out to [facility] to confirm bed hold ([phone]). Spoke to staff at his [facility] ([place]ie [phone]) to also update and confirm that he can return there when ultimately. Patient currently has started on HBO, this may be problematic with returning to [facility]. Emily Hannah RN, 12/09/2023 1:49 PM * [...] Schizophrenia History of TBI --Patient is own [facility] RECOMMENDATIONS: 1. Dressing: Dressed with Vashe [...] continue to follow while inpatient Please page recreational facilities motel manager resident with questions. Patient was discussed with recreational facilities motel manager staff Interval history: Patient seen and evaluated [...] Schizophrenia History of TBI --Patient is own [facility] RECOMMENDATIONS: 1. Dressing: Dressed in operating [...] continue to follow while inpatient Please page recreational facilities motel manager resident with questions. Patient was seen with recreational facilities motel manager staff, Dr. Palomo Interval history: Patient is [...] male D: Stephanie Low was admitted to [address] from PACU at 1446 for Other acute osteomyelitis of leftfoot ([facility]) . Patient: alert, oriented to [...] informed of Patient Valuables and Belongings Policy (#[id number]): Policy reviewed - patient/family/designee has indicated that [...] 12/12 - discussed with PharmD. 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 Hyperlipidemia: Continue SEAT COVER INSTALLER rosuvastatin. Tobacco use disorder: Continue NRT. Hx of TBI. FEN: Regular consistent carb diet. Code status: Full code. VTE prophylaxis: VTE prophylaxis with hep to start 12/08. Lines: No central line. No mujica. 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 [...] VTE prophylaxis contraindicated Does not apply protocol Mrita Urena MD vancomycin (VANCOCIN) 2,750 mg in [...] Shafer PA-C, 12/08/2023 8:34 AM Page via [employer] documented in this encounter H&P Notes * [...] Ruled Out #T2DM: A1c 6.8% 07/2023. Reduce SEAT COVER INSTALLER lantus to 15 U while NPO, Novolog 1U/CHO + LDSSI. Rechecking A1c. #HTN: SEAT COVER INSTALLER amlodipine 10 mg daily #HLD: SEAT COVER INSTALLER statin #Paranoid schizophrenia: SEAT COVER INSTALLER prazosin #HILL: SEAT COVER INSTALLER escitalopram 20 mg daily #Tobacco use disorder: [...] including pre-visit review of separately obtained history, [id number] interaction performing medically appropriate physical exam, patientcounseling/education, [...] surgery and sign off. 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 Discharge [...] wound healing. Message sent to primary team. [facility] Nursing follow up: Appreciate the opportunity to consult on this patient, Wound Ostomy Continence Services will sign off at this time. Please place additional 'Wound Consult' if wanting further assessment for this patient. Staff to continue to follow skin injury bundle. Escalate concerns to WOCN through additional consult or to the provider when barriers are identified. WOCN available Wednesday through Wednesday on [employer] or [phone] [facility] Nursing attempts to see patients in person when possible, but will at times complete a chart/media review in order to recommend wound treatment in a timely manner. Please reconsult [facility] if wound condition changes or the current [...] at PharmD General Weekend Days (TelmedIQ) or [phone]. If no response within needed timeframe, please contact central pharmacy via phone at [phone]. Planned discharge medications are: Medication List Medications [...] NEW CONSULT NOTE Stephanie Low 1980 male [id number] REASON FOR CONSULT: I was asked to [...] Prior to recent hospitalization pt lived at shelter with elevator. Was independent with mobility SUBJECTIVE [...] bearing restrictions, otherwise bed to chair only SEAT COVER INSTALLER Appropriate: No (more OR) Participated in goal setting and treatment planning: Patient Agrees with goals and treatment plan: Question patient's ability to understand. Gracia Arredondo, PT 12/10/2023 Pager: youbeQ - [facility] PT Department * David Cortes MD - 12/09/2023 9:58 AM CDT Images from the original note were not included. [facility] HYPERBARIC MEDICINE CONSULTATION Referring clinician: Che Palomo [...] old poorly controlled DMII male referred to [facility] Hyperbaric medical team for consultation regarding concern [...] Hyperbaric Medicine [facility]. Please do not hesitate to call the department at [phone] during clinic hours ([phone]) or page the recreational facilities motel manager HYPERBARIC staff with any questions or concerns. [...] you for allowing us to participate in [facility]. [place] for Hyperbaric Medicine: [phone]. David Cortes MD * Angela Cardenas, OCN - 12/08/2023 3:00 PM CDTAssociated Order(s): CONSULT TO WOUND NURSE Images from the original note were not included. [facility] Nursing consulted by nursing for perineal wounds. 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 Discharge [...] wound healing. Message sent to primary team. [facility] Nursing follow up: later this week after surgery sees Staff to continue to follow skin injury bundle. Escalate concerns to WOCN through additional consult or to the provider when barriers are identified. WOCN available Wednesday through Wednesday on [employer] or [phone] [facility] Nursing attempts to see patients in person [...] Schizophrenia History of TBI --Patient is own [facility] RECOMMENDATIONS: 1. Dressing: Daily dressing changes [...] continue to follow while inpatient Please page recreational facilities motel manager resident with questions. Patient was seen with recreational facilities motel manager staff, Dr. Palomo CHIEF COMPLAINT: Left foot [...] OR Date: 12/10/2023 Surgeon: Suzy Patino DPM Shellfish Meat Separator Operator(s): Samina Singletary DPM PGY3 Pre-Op Diagnosis: Packed [...] 1980 Sex: male Surgeon: Che Palomo DPM Shellfish Meat Separator Operator(s): Niraj Lewis DPM PGY-3 Jf Sky, MS-4 [...] 2023 2242 Started nicotine gum PRN Started SEAT COVER INSTALLER glargine and lispro The patient remained in the emergency department through the end of my shift. Their care was signedout [id number] with the oncoming provider. Dx, DDx, Assessment and Plan was discussed with Attending Emergency Medicine Physician. Final Clinical Impression 1. Other acute osteomyelitis of left foot ([facility]) Disposition and Plan Signed out [...] in real time. Please contact me via [employer] staff message if you note any errors requiring clarification. * Farida Beyer, SABINE - 12/07/2023 7:41 PM CDT Assumed care of pt. SNF director here as pt was reported missing when he did not return back from the clinic. Plan for admission with OR tomorrow. NPO at midnight, pt aware. * Allyssa Drummond MD - 12/07/2023 4:25 PM CDT Emergency Department Physician Note [facility] HISTORY Stephanie Low is a 43 [...] 1. Other acute osteomyelitis of left foot ([facility]) DISPOSITION & PLAN Patient remained [...] Toe Head to Toe Assessment Shift Summary [id number] Alert and oriented x3, unsure of the [...] Physical Therapy Inpatient Discharge Summary Stephanie Low [id number] Diagnosis Patient Active Problem List Diagnosis Fourniers [...] Therapist: Gracia Arredondo, PT Date: 12/14/2023 Pager: youbeQ - [facility] PT Department * Nursing Assessment - Kate Sarmiento RN - 12/14/2023 6:45 AM CDT Nursing Assessment Head to Toe Head to Toe Assessment Shift Summary Shift Summary [id number] Pt alert oriented and able to make [...] Toe Head to Toe Assessment Shift Summary [id number] Daily dressing change done per order, reported [...] Toe Head to Toe Assessment Shift Summary [id number] Alert and oriented x 4, able to [...] Toe Head to Toe Assessment Shift Summary [id number] Patient is alert and oriented x 4,RA.Vitals [...] amputation RLE - amputation Comments: R amputation SEAT COVER INSTALLER Integumentary Assessment Within Defined Limits except for: [...] Toe Head to Toe Assessment Shift Summary [id number] Patient is alert and oriented x 4,RA.Vitals [...] 12/10/2023 6:30 PM PGY-1 Green Surgery Pager: [phone] * Nursing Assessment - May Torres, RN [...] Singletary DPM - 12/10/2023 11:06 AM CDT [facility] Immediate Post Operative Note Note written: [...] Toe Head to Toe Assessment Shift Summary [id number] Alert and oriented x3, unsure of the [...] Defined Limits * Nursing Assessment - Aura Richard, RN - 12/09/2023 2:26 AM CDT Nursing Assessment Head to Toe Head to Toe Assessment Shift Summary Night [id number] PT is AO x4. Able to make [...] Dennis RN - 12/08/2023 2:28 PM CDTSummary: EARTHMOVING LABOURERtransfer driver PACU to IP Nursing Handoff Note S [...] Comments: RN: Cheryl Dennis RN Extension #: [id number] * Op Note Immediate - Niraj Lewis DPM - 12/08/2023 7:48 AM CDT [facility] Immediate Post Operative Note Note written: [...] 1. Other acute osteomyelitis of left foot ([facility]) Eusebio Vivar MD, 12/08/2023 12:16 AM * Interval Note Provider - Shayna Schreiber MD - 12/07/2023 8:53 PM CDT Handoff Communication Note for Hospital Admission Verbal handoff received from Dr. Drummond in [facility]. Patient Class: Inpatient Cardiac Monitoring: Not [...] designation above. Please page the MOD via TelCoridonq with clinical updates or status changes. Note is for documentation only and not for billing purposes. Monique Schreiber MD Hospital Medicine & Emergency Ultrasound 20:54 12/07/2023 * Utilization Management - Olga Gaelas RN - 12/07/2023 7:09 PM CDT INITIAL [...] CDT Other acute osteomyelitis of left foot ([facility]) POC GLUCOSE Routine 12/10/2023 6:16 AM CDT [...] CDT Other acute osteomyelitis of left foot ([facility]) TC LAB BLOOD DRAW BY VENIPUNCTURE Routine [...] POC Glucose 255(H) 70 - 100 mg/dL [facility] Blood 12/14/2023 11:2 9 AM CDT Eusebio Vivar MD LABORATORY [facility] [address] [place] [address], * (ABNORMAL) POC GLUCOSE (12/14/2023 6:32 AM CDT) POC Glucose 186(H) 70 - 100 mg/dL [facility] Blood 12/14/2023 6:32 AM CDT Eusebio Vivar MD LABORATORY Performing Organization Address [facility] Co de Phone Number [facility] [address] [place] [address], * (ABNORMAL) POC GLUCOSE (12/13/2023 9:05 PM CDT) POC Glucose 175(H) 70 - 100 mg/dL [facility] Blood 12/13/2023 9:05 PM CDT Eusebio Vivar MD LABORATORY Performing Organization Address [facility] Co de Phone Number [facility] POINT OF [address] [address], * VANCOMYCIN LEVEL (12/13/2023 5:24 PM CDT) Vancomycin 17.0 mcg/mL [facility] Comment:Expected Range (Trou gh): 10-20 mcg/ml Blood 12/13/2023 5:24 PM CDT 12/13/2023 5:46 PM CDT Narrative [facility] - 12/13/2023 6:34 PM CDT Please ensure trough level drawn prior to next vancomycin dose. Thank you Peak or trough:->Trough Eusebio KolbD LABORATORY Performing Organization Address [facility] Co de Phone Number [facility] [address] [address] * (ABNORMAL) POC GLUCOSE (12/13/2023 4:00 PM CDT) POC Glucose 153(H) 70 - 100 mg/dL [facility] Blood 12/13/2023 4:00 PM CDT Eusebio Vivar MD LABORATORY Performing Organization Address City/[facility] Co de Phone Number [facility] POINT OF [address] [address], * (ABNORMAL) POC GLUCOSE (12/13/2023 11:47 AM CDT) POC Glucose 271(H) 70 - 100 mg/dL [facility] Blood 12/13/2023 11:4 7 AM CDT Eusebio Vivar MD LABORATORY Performing Organization Address [facility] Co de Phone Number [facility] POINT OF CARE [address] [id number], [place] * (ABNORMAL) POC GLUCOSE (12/13/2023 6:35 AM CDT) POC Glucose 204(H) 70 - 100 mg/dL [facility] Blood 12/13/2023 6:35 AM CDT Eusebio Vivar MD LABORATORY Performing Organization Address [facility] Co de Phone Number [facility] [address] [place] [address], [place] * (ABNORMAL) POC GLUCOSE (12/12/2023 8:54 PM CDT) POC Glucose 170(H) 70 - 100 mg/dL [facility] POINT OF [facility] Blood 12/12/2023 8:54 PM CDT Eusebio Vivar MD LABORATORY Performing Organization Address City/[facility] Co de Phone Number [facility] POINT [facility] [address] [place] [address], [place] * (ABNORMAL) POC GLUCOSE (12/12/2023 4:10 PM CDT) POC Glucose 252(H) 70 - 100 mg/dL [facility] Blood 12/12/2023 4:10 PM CDT Eusebio Vivar MD LABORATORY Performing Organization Address City/[facility] Co de Phone Number [facility] POINT OF CARE [address] [place] [address], [place] * (ABNORMAL) POC GLUCOSE (12/12/2023 11:07 AM CDT) POC Glucose 200(H) 70 - 100 mg/dL [facility] POINT OF [facility] Blood 12/12/2023 11:0 7 AM CDT Eusebio Vivar MD LABORATORY Performing Organization Address [facility] de Phone Number [facility] [address] [place], [place] [address], * (ABNORMAL) POC GLUCOSE (12/12/2023 6:42 AM CDT) POC Glucose 185(H) 70 - 100 mg/dL [facility] POINT OF [facility] Blood 12/12/2023 6:42 AM CDT Eusebio Vivar MD LABORATORY Performing Organization Address [facility] [facility] de Phone Number [facility] [address] [place] [address], [place] * (ABNORMAL) POC GLUCOSE (12/11/2023 9:10 PM CDT) POC Glucose 226(H) 70 - 100 mg/dL [facility] Blood 12/11/2023 9:10 PM CDT Eusebio Vivar MD LABORATORY Performing Organization Address [facility] de Phone Number [facility] [address] [place] [address], [place] * VANCOMYCIN LEVEL (12/11/2023 5:28 PM CDT) Vancomycin 19.6 mcg/mL [facility] Comment:Expected Range (Trou gh): 10-20 mcg/ml Blood 12/11/2023 5:28 PM CDT 12/11/2023 5:37 PM CDT Narrative [facility] - 12/11/2023 6:46 PM CDT Peak or trough:->Trough Igor Glover MD LABORATORY [facility] [address] [place] [address] * (ABNORMAL) POC GLUCOSE (12/11/2023 4:13 PM CDT) POC Glucose 173(H) 70 - 100 mg/dL [facility] Blood 12/11/2023 4:13 PM CDT Eusebio Vivar MD LABORATORY Performing Organization Address City/[facility]/ZIP Co de Phone Number [facility] [address] [place] [address], [place] * (ABNORMAL) POC GLUCOSE (12/11/2023 11:43 AM CDT) POC Glucose 283(H) 70 - 100 mg/dL [facility] Blood 12/11/2023 11:4 3 AM CDT Eusebio Vivar MD LABORATORY Performing Organization Address [facility] Co de Phone Number [facility] PO[facility] OF [address] [address], [place] * (ABNORMAL) POC GLUCOSE (12/11/2023 10:28 AM CDT) POC Glucose 198(H) 70 - 100 mg/dL [facility] Blood 12/11/2023 10:2 8 AM CDT Eusebio Vivar MD LABORATORY Performing Organization Address City/[facility] Co de Phone Number [facility] [address] [place] [address], [place] * (ABNORMAL) POC GLUCOSE (12/11/2023 6:41 AM CDT) POC Glucose 173(H) 70 - 100 mg/dL [facility] Blood 12/11/2023 6:41 AM CDT Eusebio Vivar MD LABORATORY Performing Organization Address City/[facility]/ZIP Co de Phone Number [facility] [address] [place] [address], * (ABNORMAL) CBC WITH PLTS/AUTO DIFF (12/11/2023 5:50 AM CDT) WBC 8.72 4.00 - 10.00 k/cmm [facility] RBC 3.82(L) 4.60 - 6.00 m/cmm [facility] Hgb 10.6(L) 13.1 - 17.5 g/dL [facility] Hematocrit 32.4(L) 40.0 - 51.0 % [facility] MCV 84.8 80.0 - 100.0 fL [facility] MCH 27.7 25.0 - 32.0 pg [facility] MCHC 32.7 31.0 - 36.0 g/dL [facility] RDW 13.5 11.5 - 14.5 % [facility] Plt 400 150 - 400 k/cmm [facility] MPV 9.3 6.5 - 12.5 fL [facility] Automated Abs Neutrophil 4.22 1.70 - 6.50 k/cmm [facility] Comment:Preliminary ANC, Fin al Result to Follow Abs Immature Granulocyte 0.09 0.00 - 0.09 k/cmm [facility] Comment:The Immature Granulo cyte Absolute count contains metamyelocytes and myelocytes. Abs Neutrophil 4.22 1.70 - 6.50 k/cmm [facility] Abs Lymphocyte 2.59 0.80 - 4.00 k/cmm [facility] Abs Monocyte 1.00 0.20 - 1.00 k/cmm [facility] Abs Eosinophil 0.79(H) 0.00 - 0.60 k/cmm [facility] Abs Basophil 0.03 0.00 - 0.20 k/cmm [facility] Blood 12/11/2023 5:50 AM CDT 12/11/2023 6:26 AM CDT Igor Glover MD LABORATORY [facility] [address] [address] * (ABNORMAL) PANEL BASIC METABOLIC (BMP) (12/11/2023 5:50 AM CDT) CO2 25 22 - 30 mmol/L [facility] Glucose 178(H) 70 - 100 mg/dL [facility] BUN 9 6 - 20 mg/dL [facility] Creatinine 0.92 0.70 - 1.25 mg/dL [facility] Calcium 9.0 8.6 - 10.0 mg/dL [facility] Sodium 136 135 - 148 mmol/L [facility] Potassium 4.1 3.5 - 5.3 mmol/L [facility] Chloride 100 92 - 108 mmol/L [facility] eGFR (2020 CKD-EPI) 105 >=60 ml/min/1.7 3m2 [facility] Comment: The estimated glomerular filtration rate (eGFR) was calculated using the CKD-EPI 2020 creatinine equation, which does not include race as a factor. This equation is validated in individuals 18 years of age and older, and eGFR is normalized to a body surface area of 1.73m^2. AnGap 11 8 - 16 mmol/L [facility] Blood 12/11/2023 5:50 AM CDT 12/11/2023 6:25 AM CDT Igor Glover MD LABORATORY [facility] [place] [address] * (ABNORMAL) POC GLUCOSE (12/10/2023 9:03 PM CDT) [facility] POC Glucose 206(H) 70 - 100 mg/dL [facility] Blood 12/10/2023 9:03 PM CDT Eusebio Vivar MD LABORATORY [facility] [address] [place] [address] * (ABNORMAL) POC GLUCOSE (12/10/2023 4:16 PM CDT) [facility] POC Glucose 341(H) 70 - 100 mg/dL [facility] Blood 12/10/2023 4:16 PM CDT Eusebio Vivar MD LABORATORY [facility] [address] [address], [place] * XR CHEST 2 VIEWS PA [...] (ABNORMAL) POC GLUCOSE (12/10/2023 12:09 PM CDT) [facility] POC Glucose 194(H) 70 - 100 mg/dL [facility] Blood 12/10/2023 12:0 9 PM CDT Eusebio Vivar MD LABORATORY [facility] [address] [place] [address], * SURGICAL PATHOLOGY (12/10/2023 11:07 AM CDT) [facility] SURG PATH FINAL ?Surgical Pathology Report Collection Date: ?12/10/2023 11:07 CDT ? Ordering Physician: ? SUZY PATINO Received Date: ?12/10/2023 12:07 CDT ? Accession Number: ? [id number] ? Surgical Pathology Final Report Specimen Type: [...] Regalado M.D. Attending Pathologist. DDB/DDB 12.10.2023 13:39 [facility] AP Specimen FOOT STRUCTURE / Unknown 12/10/2023 11:07 AM CDT Comment:OR: Routine gross an d microscopic examination Tissue: 1st metatarsel left foot, cut margin Site: foot Additional clinical information: Suzy Patino DPM LAB PATHOLOGY Performing Organization Address [facility] Co de Phone Number [facility] [place] [address] * (ABNORMAL) POC GLUCOSE (12/10/2023 6:16 AM CDT) POC Glucose 228(H) 70 - 100 mg/dL [facility] Blood 12/10/2023 6:16 AM CDT Eusebio Vivar MD LABORATORY Performing Organization Address [facility] Co de Phone Number [facility] [address] [place] [address] * (ABNORMAL) CBC WITH PLTS/AUTO DIFF (12/10/2023 5:06 AM CDT) WBC 8.35 4.00 - 10.00 k/cmm [facility] RBC 3.81(L) 4.60 - 6.00 m/cmm [facility] Hgb 10.3(L) 13.1 - 17.5 g/dL [facility] Hematocrit 32.5(L) 40.0 - 51.0 % [facility] MCV 85.3 80.0 - 100.0 fL [facility] MCH 27.0 25.0 - 32.0 pg [facility] MCHC 31.7 31.0 - 36.0 g/dL [facility] RDW 13.4 11.5 - 14.5 % [facility] Plt 377 150 - 400 k/cmm [facility] MPV 9.4 6.5 - 12.5 fL [facility] Automated Abs Neutrophil 4.14 1.70 - 6.50 k/cmm [facility] Comment:Preliminary ANC, Fin al Result to Follow Abs Immature Granulocyte 0.08 0.00 - 0.09 k/cmm [facility] Comment:The Immature Granulo cyte Absolute count contains metamyelocytes and myelocytes. Abs Neutrophil 4.14 1.70 - 6.50 k/cmm [facility] Abs Lymphocyte 2.39 0.80 - 4.00 k/cmm [facility] Abs Monocyte 1.06(H) 0.20 - 1.00 k/cmm [facility] Abs Eosinophil 0.64(H) 0.00 - 0.60 k/cmm [facility] Abs Basophil 0.04 0.00 - 0.20 k/cmm [facility] Blood 12/10/2023 5:06 AM CDT 12/10/2023 5:40 AM CDT Igor Glover MD LABORATORY [facility] [address] [address] * (ABNORMAL) PANEL BASIC METABOLIC (BMP) (12/10/2023 5:06 AM CDT) CO2 26 22 - 30 mmol/L [facility] Glucose 204(H) 70 - 100 mg/dL [facility] BUN 11 6 - 20 mg/dL [facility] Creatinine 0.92 0.70 - 1.25 mg/dL [facility] Calcium 9.0 8.6 - 10.0 mg/dL [facility] Sodium 137 135 - 148 mmol/L [facility] Potassium 4.2 3.5 - 5.3 mmol/L [facility] Chloride 101 92 - 108 mmol/L [facility] eGFR (2020 CKD-EPI) 105 >=60 ml/min/1.7 3m2 [facility] Comment: The estimated glomerular filtration rate (eGFR) was calculated using the CKD-EPI 2020 creatinine equation, which does not include race as a factor. This equation is validated in individuals 18 years of age and older, and eGFR is normalized to a body surface area of 1.73m^2. AnGap 10 8 - 16 mmol/L [facility] Blood 12/10/2023 5:06 AM CDT 12/10/2023 5:40 AM CDT Igor Glover MD LABORATORY [facility] [place] [address] * (ABNORMAL) POC GLUCOSE (12/09/2023 9:18 PM CDT) POC Glucose 204(H) 70 - 100 mg/dL [facility] Blood 12/09/2023 9:18 PM CDT Eusebio Vivar MD LABORATORY [facility] [address] [place] [address] * (ABNORMAL) PANEL BASIC METABOLIC (BMP) (12/09/2023 5:56 PM CDT) Sodium 134(L) 135 - 148 mmol/L [facility] Potassium 4.2 3.5 - 5.3 mmol/L [facility] Chloride 99 92 - 108 mmol/L [facility] CO2 23 22 - 30 mmol/L [facility] AnGap 12 8 - 16 mmol/L [facility] Glucose 246(H) 70 - 100 mg/dL [facility] BUN 13 6 - 20 mg/dL [facility] Creatinine 0.98 0.70 - 1.25 mg/dL [facility] Calcium 8.8 8.6 - 10.0 mg/dL [facility] eGFR (2020 CKD-EPI) 97 >=60 ml/min/1.7 3m2 [facility] Comment: The estimated glomerular filtration rate (eGFR) was calculated using the CKD-EPI 2020 creatinine equation, which does not include race as a factor. This equation is validated in individuals 18 years of age and older, and eGFR is normalized to a body surface area of 1.73m^2. Blood 12/09/2023 5:56 PM CDT 12/09/2023 6:26 PM CDT Igor Glover MD LABORATORY Performing Organization Address [facility] Co de Phone Number [address] [address] * VANCOMYCIN LEVEL (12/09/2023 5:56 PM CDT) Vancomycin 22.0 mcg/mL [facility] Comment:Expected Range (Trou gh): 10-20 mcg/ml Blood 12/09/2023 5:56 PM CDT 12/09/2023 6:26 PM CDT Narrative [facility] - 12/09/2023 8:14 PM CDT Peak or trough:->Trough Gwen Gamez PharmD LABORATORY Performing Organization Address [facility] Co de Phone Number [facility] [address] [address] * (ABNORMAL) POC GLUCOSE (12/09/2023 4:08 PM CDT) POC Glucose 231(H) 70 - 100 mg/dL [facility] Blood 12/09/2023 4:08 PM CDT Eusebio Vivar MD LABORATORY Performing Organization Address [facility]/State/ZIP Co de Phone Number [facility] [address] [place] [address], [place] * (ABNORMAL) POC GLUCOSE (12/09/2023 11:13 AM CDT) POC Glucose 282(H) 70 - 100 mg/dL [facility] Blood 12/09/2023 11:1 3 AM CDT Eusebio Vivar MD LABORATORY [facility] [address] [place] [address], [place] * HBO TCO2 MEASUREMENT COMPLETE (12/09/2023 [...] Reg 2002; 10:198-207. Bridget QUIÑONEZ et al. [facility] 2009, Vol. 36(1). ? [place] 07/27/13 Suzy [...] POC Glucose 198(H) 70 - 100 mg/dL [facility] Blood 12/09/2023 6:43 AM CDT Eusebio Vivar MD LABORATORY Performing Organization Address [facility] Co de Phone Number [facility] PO[facility] OF [address] [address], [place] * (ABNORMAL) POC GLUCOSE (12/08/2023 9:10 PM CDT) POC Glucose 268(H) 70 - 100 mg/dL [facility] Blood 12/08/2023 9:10 PM CDT Eusebio Vivar MD LABORATORY Performing Organization Address [facility] Co de Phone Number [facility] [address] [address], [place] * (ABNORMAL) SED RATE (ESR) (12/08/2023 4:47 PM CDT) Sed Rate 120(H) 2 - 10 mm/hr [facility] Blood 12/08/2023 4:47 PM CDT 12/08/2023 5:07 PM CDT Suzy Shafer PA-C LABORATORY Performing Organization Address City/[facility]/ZIP Co de Phone Number [facility] [address] [address] * (ABNORMAL) PANEL BASIC METABOLIC (BMP) (12/08/2023 4:47 PM CDT) Sodium 134(L) 135 - 148 mmol/L [facility] Potassium 4.0 3.5 - 5.3 mmol/L [facility] Chloride 98 92 - 108 mmol/L [facility] CO2 24 22 - 30 mmol/L [facility] AnGap 12 8 - 16 mmol/L [facility] Glucose 247(H) 70 - 100 mg/dL [facility] BUN 16 6 - 20 mg/dL [facility] Creatinine 0.98 0.70 - 1.25 mg/dL [facility] Calcium 8.7 8.6 - 10.0 mg/dL [facility] eGFR (2020 CKD-EPI) 97 >=60 ml/min/1.7 3m2 [facility] Comment: The estimated glomerular filtration rate (eGFR) was calculated using the CKD-EPI 2020 creatinine equation, which does not include race as a factor. This equation is validated in individuals 18 years of age and older, and eGFR is normalized to a body surface area of 1.73m^2. Blood 12/08/2023 4:47 PM CDT 12/08/2023 5:07 PM CDT Suzy Shafer PA-C LABORATORY [facility] [address] [address] * (ABNORMAL) GLYCOSYLATED HGB - A1C (12/08/2023 4:47 PM CDT) Hemoglobin A1C 8.5(H) 4.0 - 5.6 % [facility] Comment: Increased risk for diabetes (prediabetes): 5.7-6.4% Diabetes >=6.5% In the absence of unequivocal hyperglycemia, diagnosis requires two abnormal test results (i.e. HbA1c and glucose) or two abnormal results from specimens collected at two different timepoints. The presence of some hemoglobin variants or red cell disorders may interfere with the measurement of hemoglobin A1c (HbA1c). Estimated Average Glucose 197(H) 68 - 114 [facility] Comment: The estimated Average Glucose (eAG) was calculated using an equation derived from a study of 507 adults with type 1, type 2, or no diabetes. Minority populations were underrepresented and children were not included. The eAG is not equivalent to a fasting glucose concentration. Blood 12/08/2023 4:47 PM CDT 12/08/2023 5:07 PM CDT Narrative [facility] - 12/08/2023 6:01 PM CDT If not done in the last 30 days. Suzy Shafer PA-C LABORATORY [facility] [address] [address] * (ABNORMAL) CBC WITH PLATELET (12/08/2023 4:47 PM CDT) WBC 10.39(H) 4.00 - 10.00 k/cmm [facility] RBC 3.59(L) 4.60 - 6.00 m/cmm [facility] Hgb 9.8(L) 13.1 - 17.5 g/dL [facility] Hematocrit 30.8(L) 40.0 - 51.0 % [facility] MCV 85.8 80.0 - 100.0 fL [facility] MCH 27.3 25.0 - 32.0 pg [facility] MCHC 31.8 31.0 - 36.0 g/dL [facility] RDW 13.5 11.5 - 14.5 % [facility] Plt 314 150 - 400 k/cmm [facility] MPV 9.3 6.5 - 12.5 fL [facility] Blood 12/08/2023 4:47 PM CDT 12/08/2023 5:07 PM CDT Suzy Shafer PA-C LABORATORY [facility] [address] [address] * (ABNORMAL) C-REACTIVE PROTEIN (12/08/2023 4:47 PM CDT) C-Reactive Protein 77(H) <=4 mg/L [facility] Blood 12/08/2023 4:47 PM CDT 12/08/2023 5:07 PM CDT Suzy Shafer PA-C LABORATORY [facility] [address] [place] [address] * (ABNORMAL) POC GLUCOSE (12/08/2023 4:20 PM CDT) POC Glucose 204(H) 70 - 100 mg/dL [facility] Blood 12/08/2023 4:20 PM CDT Eusebio Vivar MD LABORATORY Performing Organization Address City/[facility]/ZIP Co de Phone Number [facility] [address] [place] [address], [place] * (ABNORMAL) POC GLUCOSE (12/08/2023 12:35 PM CDT) POC Glucose 227(H) 70 - 100 mg/dL [facility] Blood 12/08/2023 12:3 5 PM CDT Eusebio Vivar MD LABORATORY Performing Organization Address [facility] Co de Phone Number [address] [address], [place] * (ABNORMAL) POC GLUCOSE (12/08/2023 10:02 AM CDT) POC Glucose 263(H) 70 - 100 mg/dL [facility] Blood 12/08/2023 10:0 2 AM CDT Eusebio Vivar MD LABORATORY Performing Organization Address City/[facility]/ZIP Co de Phone Number [facility] [address] [place] [address], [place] * XR FOOT LEFT 3 V [...] POC Glucose 214(H) 70 - 100 mg/dL [facility] Blood 12/08/2023 8:32 AM CDT Eusebio Vivar MD LABORATORY [facility] [address] [place] [address], * SURGICAL PATHOLOGY (12/08/2023 7:56 AM CDT) SURG PATH FINAL ?Surgical Pathology Report Collection Date: ?12/08/2023 07:56 CDT ?Ordering Physician: ? CHE PALOMO Received Date: ?12/08/2023 08:41 CDT ?Accession Number: ? [id number] ? Surgical Pathology Final Report Specimen Type: [...] specimen reveals a yellow, trabeculated cut surface. Machine Loader sections are submitted following decalcification as follows: A1: Resection margin, en face A2: Full cross-section of metatarsal head (DDB) DDB/DDB 12.08.2023 9:52 Microscopic Description: Microscopic examination performed and findings are reflected in the final diagnosis. I personally examined the relevant preparations and rendered and confirmed the diagnosis. ? Signed - Tootie Mackenzie M.D. Attending Pathologist. DDB/DDB 12.08.2023 9:52 [facility] AP Specimen FOOT STRUCTURE / Unknown 12/08/2023 7:56 AM CDT Comment:OR: Routine gross an d microscopic examination Tissue: Left first metatarsal head Site: left foot Additional clinical information: evaluate cut side for osteomyelitis Che Mullent DP LAB PATHOLOGY Performing Organization Address [facility] Co de Phone Number [facility] [address] [address] * FUNGUS CULTURE:INCLUDES SUHAS (12/08/2023 7:51 AM CDT) Final Report No fungus isolated. [facility] SUHAS Prep No fungal elements seen. [facility] Bone STRUCTURE OF LEFT FOOT / Unknown 12/08/2023 7:51 AM CDT 12/08/2023 9:00 AM CDT Comment:2. Bone first metata rsal left foot Che Jonbitt DP LAB MICROBIOLOGY Performing Organization Address [facility] Co de Phone Number [facility] [address] [address] * ANAEROBE CULTURE (12/08/2023 7:51 AM CDT) Final Report No anaerobes isolated. [facility] Bone STRUCTURE OF LEFT FOOT / Unknown 12/08/2023 7:51 AM CDT 12/08/2023 9:00 AM CDT Comment:2. Bone first metata rsal left foot Che L Beth DP LAB MICROBIOLOGY Performing Organization Address [facility] de Phone Number [facility] [address] [address] * (ABNORMAL) TISSUE CULTURE:INCLUDES GRAM STAIN (12/08/2023 7:51 AM CDT) Final Report Positive Culture Few METHICILLIN RESISTANT Staphylococcus aureus (MRSA) isolated. 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 For susceptibility, see previous report on culture from wound culture collected 12/07/23. (POS) [facility] Organism METHICILLIN RESISTANT STAPHYLOCOCCUS AUREUS (MRSA)(POS) [facility] Gram Stain Report Corrected Report Positive Gram stain Rare PMN's seen. Rare gram positive cocci. Gram stain electronically reported to and acknowledged by: Dr. Niraj Lewis from OR at ??12/08/2023 10:09:09 by Jacklyn Easley MLS. Removed Pleomorphic gram variable bacilli from report. Results electronically reported to and acknowledged by: Dr. [facility] [place] 12/09/2023 12:48:27. Elizbaeth Schwartz MLS. (POS) [facility] Bone STRUCTURE OF LEFT FOOT / Unknown 12/08/2023 7:51 AM CDT 12/08/2023 9:00 AM CDT Comment:2. Bone first metata rsal left foot Che Palomo [facility] MICROBIOLOGY [facility] [address] [address] * (ABNORMAL) TISSUE CULTURE:INCLUDES GRAM STAIN (12/08/2023 7:51 AM CDT) Final Report Positive Culture Few METHICILLIN RESISTANT Staphylococcus aureus (MRSA) isolated. 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 For susceptibility, see previous report on culture from wound culture collected 12/07/23. Rare Corynebacterium striatum group isolated. A member of the diphtheroid bacilli. (POS) [facility] Organism METHICILLIN RESISTANT STAPHYLOCOCCUS AUREUS (MRSA)(POS) [facility] Organism CORYNEBACTERIUM STRIATUM GROUP(POS) [facility] Gram Stain Report Positive Gram stain Rare PMN's seen. Rare gram positive cocci. Gram stain electronically reported to and acknowledged by: Dr. Niraj Lewis from OR at ??12/08/2023 10:09:09 by Jacklyn Easley MLS. (POS) [facility] Tissue FOOT STRUCTURE / Unknown 12/08/2023 7:51 AM CDT Comment:Add Aerobic Narrative [facility] - 12/10/2023 2:22 PM CDT Add Aerobic Che Mullent DPM LAB MICROBIOLOGY Performing Organization Address [facility] Co de Phone Number [facility] [address] [address] * FUNGUS CULTURE:INCLUDES SUHAS (12/08/2023 7:51 AM CDT) Final Report No fungus isolated. [facility] SUHAS Prep No fungal elements seen. [facility] Tissue FOOT STRUCTURE / Unknown 12/08/2023 7:51 AM CDT Comment:Add Aerobic Narrative [facility] - 01/05/2024 8:10 AM CDT Add Aerobic Che Jonbitt DPM LAB MICROBIOLOGY Performing Organization Address [facility] Co de Phone Number [facility] [address] [address] * ANAEROBE CULTURE (12/08/2023 7:51 AM CDT) Final Report No anaerobes isolated. [facility] Tissue FOOT STRUCTURE / Unknown 12/08/2023 7:51 AM CDT Comment:Add Aerobic Narrative [facility] - 12/14/2023 9:06 AM CDT Add Aerobic Che Jonbitt DPM LAB MICROBIOLOGY Performing Organization Address [facility] Co de Phone Number [facility] [address] [address] * (ABNORMAL) POC GLUCOSE (12/08/2023 7:22 AM CDT) POC Glucose 236(H) 70 - 100 mg/dL [facility] Blood 12/08/2023 7:22 AM CDT Eusebio Vivar MD LABORATORY Performing Organization Address City/[facility]/ZIP Co de Phone Number [facility] [address] [place] [phone], * EXTRA TUBE - BLUE (12/07/2023 4:05 PM CDT) BLUE TUBE [facility] Comment:Blue top(Sodium citr ate) tubes are kept for 3 days from the collection date. Blood 12/07/2023 4:05 PM CDT 12/07/2023 4:24 PM CDT Eusebio Vivar MD LABORATORY Performing Organization Address [facility] Co de Phone Number [facility] [address] [address] * EXTRA TUBE - DARK GREEN (12/07/2023 4:05 PM CDT) DARK GREEN TUBE Stored [facility] Comment:Dark Green tubes (Li thium Heparin) are stored in the lab for 1 day from the collection date. Blood 12/07/2023 4:05 PM CDT 12/07/2023 4:24 PM CDT Eusebio Vivar MD LABORATORY Performing Organization Address [facility] de Phone Number [facility] [address] [address] * (ABNORMAL) ED CHEMISTRY LABS(NA,K,CL,CO2,GLU,CREAT,CA-IONIZED,ANION GAP) (12/07/2023 4:05 PM CDT) Pathologist [facility] Sodium 139 135 - 148 mmol/L [facility] Chloride 97 92 - 108 mmol/L [facility] AnGap 15 8 - 16 mmol/L [facility] Glucose 284(H) 70 - 100 mg/dL [facility] ICA, Actual 4.89 4.40 - 5.20 mg/dL [facility] ICA, pH Corrected 4.74 4.40 - 5.20 mg/dL [facility] Creatinine 1.26(H) 0.70 - 1.25 mg/dL [facility] BICARB 26 22 - 26 mEq/L [facility] eGFR (2020 CKD-EPI) 72 >=60 ml/min/1.7 3m2 [facility] Comment: The estimated glomerular filtration rate (eGFR) was calculated using the CKD-EPI 2020 creatinine equation, which does not include race as a factor. This equation is validated in individuals 18 years of age and older, and eGFR is normalized to a body surface area of 1.73m^2. Potassium 4.5 3.5 - 5.3 mmol/L [facility] Blood 12/07/2023 4:05 PM CDT 12/07/2023 4:27 PM CDT Eusebio Vivar MD LABORATORY [facility] [address] [address] * (ABNORMAL) CBC WITH PLTS/AUTO DIFF (12/07/2023 4:05 PM CDT) WBC 9.80 4.00 - 10.00 k/cmm [facility] RBC 4.08(L) 4.60 - 6.00 m/cmm [facility] Hgb 11.2(L) 13.1 - 17.5 g/dL [facility] Hematocrit 34.7(L) 40.0 - 51.0 % [facility] MCV 85.0 80.0 - 100.0 fL [facility] MCH 27.5 25.0 - 32.0 pg [facility] MCHC 32.3 31.0 - 36.0 g/dL [facility] RDW 13.7 11.5 - 14.5 % [facility] Plt 324 150 - 400 k/cmm [facility] MPV 9.4 6.5 - 12.5 fL [facility] Automated Abs Neutrophil 5.37 1.70 - 6.50 k/cmm [facility] Comment:Preliminary ANC, Fin al Result to Follow Abs Immature Granulocyte 0.12(H) 0.00 - 0.09 k/cmm [facility] Comment:The Immature Granulo cyte Absolute count contains metamyelocytes and myelocytes. Abs Neutrophil 5.37 1.70 - 6.50 k/cmm [facility] Abs Lymphocyte 2.61 0.80 - 4.00 k/cmm [facility] Abs Monocyte 1.32(H) 0.20 - 1.00 k/cmm [facility] Abs Eosinophil 0.34 0.00 - 0.60 k/cmm [facility] Abs Basophil 0.04 0.00 - 0.20 k/cmm [facility] Blood 12/07/2023 4:05 PM CDT 12/07/2023 4:51 PM CDT Eusebio Vivar MD LABORATORY Performing Organization Address City/[facility]/ZIP Co de Phone Number [address] [address] * LACTATE (LACTIC ACID) (12/07/2023 4:05 PM CDT) Lactate 2.1 0.7 - 2.1 mmol/L [facility] Blood 12/07/2023 4:05 PM CDT 12/07/2023 4:27 PM CDT Narrative [facility] - 12/07/2023 4:27 PM CDT Send specimen on ice! Eusebio Vivar MD LABORATORY Performing Organization Address [facility] Co de Phone Number [address] [address] * (ABNORMAL) C-REACTIVE PROTEIN (12/07/2023 4:05 PM CDT) C-Reactive Protein 82(H) <=4 mg/L [facility] Blood 12/07/2023 4:05 PM CDT 12/07/2023 4:51 PM CDT Eusebio Vivar MD LABORATORY Performing Organization Address [facility] Co de Phone Number [address] [address] * (ABNORMAL) SED RATE (ESR) (12/07/2023 4:05 PM CDT) Sed Rate 120(H) 2 - 10 mm/hr [facility] Blood 12/07/2023 4:05 PM CDT 12/07/2023 4:51 PM CDT Eusebio Vivar MD LABORATORY Performing Organization Address City/[facility] Co de Phone Number [address] [address] * BLOOD AEROBIC/ANAEROBIC CULTURE (12/07/2023 4:05 PM CDT) Final Report No growth after 5 days. [facility] Blood (Peripheral) 12/07/2023 4:05 PM CDT 12/07/2023 7:55 PM CDT Eusebio Vivar MD LAB MICROBIOLOGY [facility] [address] [place] [address] documented in this encounter Visit Diagnoses Diagnosis [...] Patch removed - Provider: JENNIFER NARAYANAN, [facility] - Comment: Time automatically adjusted [...] Susie Matson, SABINE) 2014 (Given - Provider: Kaet Sarmiento, SABINE) vancomycin (VANCOCIN) 1,250 mg in [...] Sargent, RN)2030 (Infusion completed - Provider: Susie Matson [...]
--- OUTSIDE RECORDS SUMMARY | 2024-02-14 09:02 | XMS_ITS | Encounter Summary ---
Author Organization [facility] Address [address] [place] [address] Phone Care Team Providers Care Silo Erector Name Role Phone Unavailable Primary Care Provider Unavailabl e Reason for Visit * Auth/Cert (Routine) Specialty Diagnoses / Procedures Referred By Katherine tidwell Referred To Contact SURGERY Diagnoses Other acute osteomyelitis of left foot ([facility]) Eusebio Vivar MD [address] [place] [address] [address] Referral ID Status Reason Start Date Expiration Date Visits Re quested Visits Authorized [id number] 1 1 Encounter Details Date Type Department Care Team (Latest Contact Info) Description 12/07/2023 3:07 PM CDT - 12/07/2023 11:59 PM CDT Hospital [facility] [address] [address] Che Campos DPM [address] [phone] Discharge Disposition: Discharged to home or self [...] Routine 12/07/2023 3:23 PM CDT 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
--- OUTSIDE RECORDS SUMMARY | 2024-02-14 09:03 | XMS_ITS | Encounter Summary ---
Author Organization [facility] Address [address] [place] [address] Phone Care Team Providers Care Database Marketing Analyst Name Role Phone Unavailable Primary Care Provider Unavailabl e Reason for Visit * Reason Onset Date Comments Post-op Complications 12/02/2023 Encounter Details Date Type Department Care Team (Late st Contact Info) Description 12/02/2023 Nurse Triage [facility] [address] [address] Angi Aranda, RN [address] [place] [address] Post-op Complications Social History Tobacco Use Types [...] D: Received call initially from Farida from [facility] regarding patient, stating that patient's wound on his left operative foot/toe appears to be dehissed. States the patient receives dressingchanges every day on the left foot. Was transferred to [facility] to get more information [facility] states that the patient arrived sic days [...] answer question Protocols used: Post-Op Symptoms and [id number] documented in this encounter Plan of Treatment Not on file documented as of this encounter Visit Diagnoses Not on filedocumented in this encounter Additional Health Concerns Infection Onset Date Last Indicated Resolved Time 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
--- OUTSIDE RECORDS SUMMARY | 2024-02-14 09:03 | XMS_ITS | Encounter Summary ---
Author Organization [facility] Address [address] [place] [phone] Phone Care Team Providers Care Deputy Commonwealth'S Attorney Name Role Phone Unavailable Primary Care Provider Unavailabl e Reason for Visit * Reason Comments Post Op * Auth/Cert (Routine) Specialty Diagnoses / Procedures Referred By Katherine tidwell Referred To Contact SURGERY Diagnoses Other acute osteomyelitis of left foot ([facility] [facility]) Eusebio Vivar MD [address] [place] [address] [address] Referral ID Status Reason Start Date Expiration Date Visits Re quested Visits Authorized [id number] 1 1 Encounter Details Date Type Department Care Team ([facility] st Contact Info) Description 12/07/2023 2:30 PM CDT Office Visit [facility] [address] [address] Che Campos DPM [address] [address] 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 Confirmed last admission -XR was completed in clinic today. No additional XR needed in ED -This is a low risk surgery with known risk factors including osteomyelitis and nonhealing amputation site. 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 (POS) [facility] Organism METHICILLIN RESISTANT STAPHYLOCOCCUS AUREUS (MRSA)(POS) [facility] Organism CORYNEBACTERIUM STRIATUM GROUP(POS) [facility] Gram Stain Report No PMN's seen. No organisms seen. [facility] Swab STRUCTURE OF LEFT FOOT / Unknown 12/07/2023 3:00 PM CDT 12/07/2023 5:23 PM CDT Narrative [facility] - 12/10/2023 10:38 AM CDT Left [...] 1: Sensitive Che Campos DPM LAB MICROBIOLOGY [facility] [address] [address] documented in this encounter Visit Diagnoses Diagnosis 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[facility])- Primary Cellulitis of left lower extremity Cellulitis and abscess of leg, except foot 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[facility]) documented in this encounter Additional Health Concerns Infection Onset Date Last Indicated Resolved Time 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
--- OUTSIDE RECORDS SUMMARY | 2024-02-14 09:03 | XMS_ITS | Encounter Summary ---
Author Organization [facility] Address [address] [place] [phone] Phone Care Team Providers Care Telephone Ad Taker Name Role Phone Unavailable Primary Care Provider [...]
--- OUTSIDE RECORDS SUMMARY | 2024-02-14 09:04 | XMS_ITS | Encounter Summary ---
Author Organization [facility] Address [address] [place] [phone] Phone Care Team Providers Care Coating Supervisor Name Role Phone Unavailable Primary Care Provider Unavailabl e Reason for Referral * Consult/Test/Treat (Urgent) - New Request Specialty Diagnoses / Procedures Referred By Contac t Referred To Contact Physical Therapy / PHYSICAL THERAPY Diagnoses 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HHS) Hyperglycemia Foot infection 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 APRN, CNP [address] [place] [address] Referral, Self [place] [address] Referral ID Status Reason Start Date Expiration Date V isits Requested Visits Authorized [id number] New Request 11/24/2023 11/24/2024 1 1 * Consult/Test/Treat (Routine) - New Request Specialty Diagnoses / Procedures Referred By Contac t Referred To Contact Diagnoses 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HHS) Hyperglycemia Foot infection 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 APRN, CNP [address] [place] [address] Referral, Self [place] [address] Referral ID Status Reason Start Date Expiration Date V isits Requested Visits Authorized [id number] New Request 11/24/2023 11/24/2024 1 1 Reason for Visit * Reason Comments Fever Penis/Scrotal Problem Toe Problem * Auth/Cert (Routine) Specialty Diagnoses / Procedures Referred By Contac t Referred To Contact SURGERY Diagnoses 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HHS) Hyperglycemia Zac Churchill MD [address] [place] [address] [address] [facility] [address] [place] [address] Referral ID Status Reason Start Date Expiration Date Visits Re quested Visits Authorized [id number] 1 1 Encounter Details Date Type Department Care Team (Latest Contact Info) Description 11/10/2023 2:28 PM CDT - 11/25/2023 12:02 PM CDT Hospital Encounter [facility] Surgery/Trauma/Chinedu ro 2 [address] [facility] [address] [place], [place] [id number] Jessica Grullon MD 701 [facility] [address] [place], [place] [address] Zac Churchill MD [address] [facility] [address] [place], [place] [id number] 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HHS) Discharge Disposition: Discharged/transd to [...] encounter Discharge Summaries * 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 APRN, HAND BRUSH FILLER - 11/25/2023 7:37 AM CDT GENERAL SURGERY DISCHARGE SUMMARY - 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 No gross focal deficits Seafood Processor Needed: no PLANNED DISCHARGE ORDERS: Suture/Sharon: None [...] of plan of care? Yes Okay for Custodial Facility standing orders? Question Response Notes OK for Custodial Facility house standing orders? Yes Other Nursing [...] or contraindicated. Resume previous standing orders per longterm policy Order Notes Resume previous standing orders per longterm policy Patient is on a Consistent Carbohydrate [...] 4:30PM, M-F): Call the Surgery Clinic at [phone] After hours or on Holidays: Call the [facility] graphite mill operator . Ask the graphite mill operator to page the general surgery resident international guest coordinator. IF: -- you feel you are getting [...] -- Read all labels for prescription and Jrtt-ype-tifwnbj medicines. Ask the pharmacist if your prescription [...] Your Medications These medications were sent to [facility] Discharge Pharmacy - [place] [address] Hours: 30/11 insulin LISPRO 100 UNIT/ML Kwikpen [...] condition and treatment plan. 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 APRN, HAND BRUSH FILLER 11/25/2023 07:37 [facility] Department of Surgery Pager: via telemediq I have spent 45 minutes with this patient today in which greater than 50% of this time was spent incounseling/coordination of care regarding in patient care, review of imaging/labs, chart review andconsultant recommendations. Dictation Disclaimer: Some notes are completed with voice-recognition dictation software. Errors are generally corrected in real time. Please contact me via [employer] staff message if you note any errors [...] - Resources for patient (select all that apply):[id number]} documented in this encounter Medications at Time [...] the discharge summary paperwork with medication orders. Emergency Room Registered Nurse opened admission encounter and re-faxed discharge paperwork to the provided fax # of [phone]. Tried a second fax # after this wasn't received, which also wasn't received. Third attempt made viaencrypter email. Confirmed received paperwork via encrypted email. Pepe Hernandez RN, 11/25/2023 9:33 PM ED Clinical Coordinator Office: [phone] TelMedIQ: ED Clinical Coordinator * Kate Harmon [...] (Arrive by 12:50 PM) with Dr Palomo ([facility]-5th floor) since he is discharging to [place].Follows with [facility] when closer to home otherwise. Please page international guest coordinator resident with questions. Interval History Patient was [...] CDT Preadmission Screening Submitter InformationPerson Being ReferredMedical InformationADL'[facility] HospitalSubmitResults Results Thank you for submitting a [...] help, contact the Senior LinkAge Line at [phone] or click to contact us. Print this page You have successfully submitted the preadmission screening (PAS) to the Senior LinkAge Line on: Created On 11/24/2023 2:25 PM Your confirmation number is: [id number] Results Level of Care: Based on the information you provided, it appears this person meets level of care for purposes of [place] payment. OBRA: It appears this person does not need an OBRA Level II assessment. Submitter Information Form Type PAS Submitter First and Last Name Caridad Dorsey Direct Agency [facility] Service Type Hospital [address] [facility] Zip Code [address] Is your Agency outside [place]? Person Being Admitted to Nursing Facility Legal first name Matt Last name Stephanie Date of 1980 Age 43 Gender Male Marital Status N= Never Race A = B = Black or N = or [place] P = [place] or W = White U = Unable to Determine Ethnicity Not / Currently living with: 01 Living Alone Planned living with 04 Living in Congregate Setting Housing Type Home or apartment, including assisted living () Mailing Address [address] [place] [address] [place] [address] [facility] Medical Information Reason for nursing facility [...] person will admit to?Yes Provider [facility] Nursing Facility Nursing Facility Service Type Residential [address] Zip [address] [place] [address] If your provider is not listed check [...] Planning on discharge today to [facility] pending insurance approval. PLAN: Neuro/Pain [...] Trend WBCs and fever Skin/Wounds: Perineal debridement laeq-ayu-tv-dry dressings with Vashe; Left hallux amputation -Betadine with 4 x 4 DVT prophylaxis: Lovenox and SCDs Weight Bearing: Heel touch WB in surgical shoe. On the LLW Activity: Ad celia PT/OT: Appreciate Recs Disposition: [facility] on 11/24/23 pending insurance authorization 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 APRN, PATRICIA, 11/24/2023 1:[address] [facility] Department of Surgery Pager: via [employer] I have spent 30 minutes with this patient today in which greater than 50% of this time was spent incounseling/coordination of care regarding in patient care, review of imaging/labs, chart review andconsultant recommendations. Dictation Disclaimer: Some notes are completed with voice-recognition dictation software. Errors are generally corrected in real time. Please contact me via [employer] staff message if you note any errors [...] time () of patient departure: 11/25/2023@1030 Destination: [address] [place] [address] Type of ride: Transportation Plus #conformation [id number] Transportation vendor of ride (choose one below):* [facility] [phone] If this ride needs to [...] Clinical Coordinators will be informed via a TelLoved.la page. PCS form was completed in Progress [...] sex Attending provider: Zac Churchill MD Insurance: [facility] Secondary insurance: [employer] Height: Height: 180.3 cm (5' [...] care/Home mgmt/ADL: 18 minutes EDWIN Alvarado/Brian Pager: [facility] OT Department Problem: Loss of [place] With ADLs, Risk for Goal: Will complete lower body dressing Description: Patient will complete lower body dressing with Modified Cabarrus (6). Outcome: In progress Goal: Will toilet self Description: Patient will toilet self with Modified [place] (6). Outcome: In progress * Lior Azul [...] Address Phone Fax Patient Preferred [facility] Selected Custodial [address] [place] [phone] -- Internal Comment last updated by Lior Azul 11/24/2023 0805 Pending prior auth. Lior Azul, 11/24/2023 8:05 AM Received VM saying they would accept . LVM saying we would accept bed.. Caridad Dorsey, 11/24/2023 7:50 AM Admissions is currently reviewing .Caridad Dorsey, 11/23/2023 9:31 AM No bd available until next week. Caridad Dorsey, 11/18/2023 8:34 AM The [facility] ([facility]) Accepted N/A [address] [facility] [address] [phone] -- Internal Comment last updated by Lior Azul 11/24/2023 0840 They can offer us a bed here but we already found one in [place]. Lior Azul, 11/24/2023 8:[address] [facility] Pending - Request Sent N/A [address] [facility] [address] [phone] -- Internal Comment last updated by Caridad Dorsey 11/23/2023 0937 LVM for admissions .Caridad Dorsey, 11/23/2023 9:37 AM [facility] Declined Current smoking, Bariatric N/A 815 [facility] [address] [phone] -- The [facility] Declined Distance N/A [address] [address] [phone] -- Internal Comment last updated by Lior Azul 11/22/2023 1216 This is too far from where patient lives. Lior Azul, 11/22/2023 12:18 PM Sent e mail to Allie .Caridad Dorsey, 11/22/2023 8:10 AM LVM for admissions .Caridad Dorsey, 11/19/2023 7:44 AM Sent email to Missy.Caridad Dorsey, 11/17/2023 2:24 PM [facility] Declined No Contract with Patient's Insurance Carrier N/A [address] [place] [address] [phone] -- [facility] Declined Current smoking, Ac[place] [address] [facility] [address] [phone] -- Internal Comment last updated by Caridad Dorsey 11/18/2023 0831 LVM for admissions.Caridad Dorsey, 11/18/2023 8:31 AM Nena Ernandez, [facility] Declined Bed not available N/A 100[address] [facility] [address] [phone] -- Internal Comment last updated by Lior Azul 11/23/2023 1415 Looking for a bed in the [facility] .Caridad Dorsey, 11/23/2023 9:35 AM LVM for admissions.Caridad Dorsey, 11/19/2023 8:17 AM LVM for admissions.Caridad Dorsey, 11/18/2023 8:37 AM [facility] Declined Bed not available N/A 1175 [facility] [address] [phone] -- The [facility] Declined Bed not available N/A 7727 [facility] [phone] -- The [facility] Declined Bed not available N/A [address] [facility] [address] [phone] -- Home Medical Care No active coordination exists for this encounter. * 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, STEEL BARREL REAMER, HAND BRUSH FILLER - 11/23/2023 3:06 PM CDT SURGERY PROGRESS NOTE--OUTDOOR FITNESS TRAINER Stephanie Low : 1980 Sex: male SIGNIFICANT [...] Trend WBCs and fever Skin/Wounds: Perineal debridement mfsz-wkt-lk-dry dressings with Vashe; Left hallux amputation -Betadine with 4 x 4 DVT prophylaxis: Lovenox and SCDs Weight Bearing: Heel touch WB in surgical shoe. On the LLW Activity: Ad celia PT/OT: Appreciate Recs Disposition: Postacute placement recommended-care management and social work looking for a TCU. 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 APRN, CNP, 11/23/2023 3:[address] [facility] Department of Surgery Pager: via telemediq I have spent 30 minutes with this patient today in which greater than 50% of this time was spent incounseling/coordination of care regarding in patient care, review of imaging/labs, chart review andconsultant recommendations. Dictation Disclaimer: Some notes are completed with voice-recognition dictation software. Errors are generally corrected in real time. Please contact me via [employer] staff message if you note any errors [...] Address Phone Fax Patient Preferred [facility] Pending - Request Sent N/A [address] [facility] [phone] -- Internal Comment last updated by Caridad Dorsey 11/23/2023 0931 Admissions is currently reviewing .Caridad Dorsey, 11/23/2023 9:31 AM No bd available until next week. Caridad Dorsey, 11/18/2023 8:34 AM [facility], [facility] Pending - Request Sent N/A 100[address] [facility] [address] [phone] -- Internal Comment last updated by Lior Azul 11/23/2023 1415 Looking for a bed in the [facility] .Caridad Dorsey, 11/23/2023 9:35 AM LVM for admissions.Caridad Dorsey, 11/19/2023 8:17 AM LVM for admissions.Caridad Dorsey, 11/18/2023 8:[address] [facility] Pending - Request Sent N/A [address] [facility] [address] [phone] -- Internal Comment last updated by Caridad Dorsey 11/23/2023 0937 LVM for admissions .Caridad Dorsey, 11/23/2023 9:37 AM [facility] Declined Current smoking, Bariatric N/A [address] [facility] [address] -- The [facility], [facility] Declined Distance N/A [address] [address] [phone] -- Internal Comment last updated by Lior Azul 11/22/2023 8169 This is too far from where patient lives. Lior Azul, 11/22/2023 12:18 PM Sent e mail to [facility] .Caridad Dorsey, 11/22/2023 8:10 AM LVM for admissions .Caridad Dorsey, 11/19/2023 7:44 AM Sent email to Missy.Caridad Dorsey, 11/17/2023 2:24 PM [facility] Declined No Contract with Patient's Insurance Carrier N/A [address] [place] [address] [phone] -- [facility] Declined Current smoking[place] [address] [facility] [address] [phone] -- Internal Comment last updated by Caridad Dorsey 11/18/2023 0831 LVM for admissions.Caridad Dorsey, 11/18/2023 8:31 AM [facility] Declined Bed not available N/A 1175 [facility] [address] [phone] -- The [facility] Declined Bed not available N/A 7727 [facility] [phone] -- The [facility] Declined Bed not available N/A [address] [facility] [address] [phone] -- Home Medical Care No active coordination exists for this encounter. * Caridad Dorsey - 11/23/2023 9:42 AM CDT Continued Care and Services - Admitted Since 11/10/2023 Destination Service Provider Request Status Selected Services Address Phone Fax Patient Preferred [facility] Pending - Request Sent N/A [address] [facility] [phone] -- Internal Comment last updated by Caridad Dorsey 11/23/2023 0931 Admissions is currently reviewing .Caridad Dorsey, 11/23/2023 9:31 AM No bd available until next week. Caridad Dorsey, 11/18/2023 8:34 AM Nena Ernandez [facility] Pending - Request Sent N/A 100[address] [facility] [address] -- Internal Comment last updated by Caridad Dorsey 11/23/2023 0935 Looking for a bed in the [facility] .Caridad Dorsey, 11/23/2023 9:35 AM LVM for admissions.Caridad Dorsey, 11/19/2023 8:17 AM LVM for admissions.Caridad Dorsey, 11/18/2023 8:37 AM The [facility] Pending - Request Sent N/A 236[address] [facility] [address] -- [facility] Pending - Request Sent N/A 900 [facility] [address] [phone] -- Internal Comment last updated by Caridad Dorsey 11/23/2023 0937 LVM for admissions .Caridad Dorsey, 11/23/2023 9:37 AM [facility] Declined Current smoking, Bariatric N/A [address] [facility] [address] [phone] -- The [facility] Declined Distance N/A [address] [address] [phone] -- Internal Comment last updated by Lior Azul 11/22/2023 1218 This is too far from where patient lives. Lior Azul, 11/22/2023 12:18 PM Sent e mail to Allie .Caridad Dorsey, 11/22/2023 8:10 AM LVM for admissions .Caridad Dorsey, 11/19/2023 7:44 AM Sent email to Missy.Caridad Dorsey, 11/17/2023 2:24 PM [facility] Declined No Contract with Patient's Insurance Carrier N/A [address] [place] [address] [phone] -- [facility] Declined Current smoking, [place] [address] [facility] [address] [phone] -- Internal Comment last updated by Caridad Dorsey 11/18/2023 0831 LVM for admissions.Caridad Dorsey, 11/18/2023 8:31 AM [facility] Declined Bed not available N/A 1175 [facility] [address] [phone] -- The [facility], [facility] Declined Bed not available N/A [address] [facility] [address] [phone] -- Home Medical Care No active coordination [...] mgmt/ADL: 13 minutes Chayo Townsend OTR/L Pager: [facility] OT Department Problem: Loss of Cabarr[place] With ADLs, Risk for Goal: Will complete lower body dressing Description: Patient will complete lower body dressing with Modified [place]arrus (6). Outcome: In progress Goal: Will toilet self Description: Patient will toilet self with Modified [place] (6). Outcome: In progress * Arden Elena [...] gait with or without AD, static/dynamic balance. RETAIL ANALYTICS MANAGER Appropriate: Yes Arden Elena, RETAIL ANALYTICS MANAGER 11/22/2023 Pager: [facility] Dept Problem: Decreased Transfer Skills Goal: Patient will transfer sit to/from stand Description: Patient will transfer sit to/from stand while Heel touch WB on L LE in post-op shoe with (6) Modified [place] in order to mobilize in home by [...] 12:09 PM CDTSummary: DC Planning DC Planning [facility] SABINE Hartman - O: [phone] Retirement RN is calling her asking her when [...] agrees with sending referrals to SNFs around [place]. He wants CC to let sister know [...] bedtime. -Continue Amlodipine 10mg Daily - Resume RETAIL ANALYTICS MANAGER losartan 50mg PO Daily when Cr is closer to baseline (1.0) Acute Kidney Injury Monitor urine output and BMP closely. Paranoid schizophrenia - continue user acceptance tester escitalopram 20mg qhs, trazodone 50mg qhs, prazosin 1mg qhs (ordered) - receives outpatient paliperidone (Invega) IM every 4 weeks for schizophrenia at [place], unclear when last dose was. Would give [...] the patient on the date of the ticket writer's note. I discussed with the ticket writer of the note and agree with their findings and plan documented in the ticket writer's note from above. Any revisions by [...] bedtime. -Continue Amlodipine 10mg Daily - Resume RETAIL ANALYTICS MANAGER losartan 50mg PO Daily when Cr is closer to baseline (1.0) Acute Kidney Injury Monitor urine output and BMP closely. Paranoid schizophrenia - continue user acceptance tester escitalopram 20mg qhs, trazodone 50mg qhs, prazosin 1mg qhs (ordered) - receives outpatient paliperidone (Invega) IM every 4 weeks for schizophrenia at [place], unclear when last dose was. Would give [...] admitted on 11/10/2023 as a transfer from [facility] for emergent surgical debridement for demar's gangrene. [...] are above goal here (FPG goal <150). RETAIL ANALYTICS MANAGER lantus 30 units BID, lispro 10 units TID AC, metformin 500mg BID. A1c 6.8% on 07/27/23. Complications include h/o diabetes related infections. Hold RETAIL ANALYTICS MANAGER metformin while admitted. Continue statin. 11/12 got 25u lantus (<0.2/kg) and 35u aspart. Likely needs increase in insulin dosing but also use caution with impaired renal clearance / worsening renal function and this can contribute to hypoglycemia. Serum glucose levels are slightly improved on RETAIL ANALYTICS MANAGER regimen of 30 U daily Lantus. Serum [...] by facility provider. Paranoid schizophrenia - restarted RETAIL ANALYTICS MANAGER meds (escitalopram 20mg qhs, trazodone 50mg qhs, [...] outpatient on 11/25 or 2 Resume patient's RETAIL ANALYTICS MANAGER losartan 50mg PO daily when Cr is closer to baseline (approx 1.0) Strict I/O, monitor UOP. Avoid nephrotoxins (IV contrast, NSAIDs), renal dosing of meds Medicine service will sign off. Please page Hospitalist Consult A on telmediSnapjoy for any further issues or questions. SUBJECTIVE/Events of Past 24 Hours: Hospital Day: 11 Mr Low feels well today. Denies any symptoms. Pain controlled. He believes postoperative dressing changes can be done by his current senior living; I encouraged him to discuss that with his primary team and adult protective caseworker. Amenable to plan, looking forward to leaving [...] today 11/19. Labs reviewed Scar Leyva MD [facility] Medicine * Paula Black DPM - [...] standpoint. Patient follows with Dr Hayden in [facility] and would prefer to follow up with him upon discharge. We are happy to schedule anappointment with patient if he wishes to follow up with our team. Please page international guest coordinator resident with questions. Interval History Patient was [...] and BMP closely. Paranoid schizophrenia - continue user acceptance tester escitalopram 20mg qhs, trazodone 50mg qhs, prazosin 1mg qhs (ordered) - receives outpatient paliperidone (Invega) IM every 4 weeks for schizophrenia at [place], unclear when last dose was. Would give [...] admitted on 11/10/2023 as a transfer from [facility] for emergent surgical debridement for demar's gangrene. [...] are above goal here (FPG goal <150). RETAIL ANALYTICS MANAGER lantus 30 units BID, lispro 10 units TID AC, metformin 500mg BID. A1c 6.8% on 07/27/23. Complications include h/o diabetes related infections. Hold RETAIL ANALYTICS MANAGER metformin while admitted. Continue statin. 11/12 got 25u lantus (<0.2/kg) and 35u aspart. Likely needs increase in insulin dosing but also use caution with impaired renal clearance / worsening renal function and this can contribute to hypoglycemia. Serum glucose levels are slightly improved on RETAIL ANALYTICS MANAGER regimen of 30 U daily Lantus. Serum glucose levels better controlled today and more consistent in the 126 - 165 range. Continue current dosing for now with monitoring of serum glucose levels. Paranoid schizophrenia - restarted RETAIL ANALYTICS MANAGER meds (escitalopram 20mg qhs, trazodone 50mg qhs, prazosin 1mg qhs). Given paliperidone (Invega) IM on 11/12/23 (due every 4 weeks for schizophrenia) Tobacco use - offer nicotine patches, gum, lozenges while inpatient H/o TBI Obesity RECOMMENDATIONS 11/15/23 Continue Lantus to 30 U qd Continuing amlodipine, monitoring BP to determine if second agent needed with recent improvement Resume patient's RETAIL ANALYTICS MANAGER losartan 50mg PO daily when Cr is closer to baseline (likely ~1.0) Strict I/O, monitor UOP. Avoid nephrotoxins (IV contrast, NSAIDs), renal dosing of meds Medicine service will sign off tomorrow 11/20 if clinical stability/improvement continues. Please page Hospitalist Consult A on [employer] for any further issues or questions. SUBJECTIVE/Events [...] are above goal here (FPG goal <150). RETAIL ANALYTICS MANAGER lantus 30 units BID, lispro 10 units TID AC, metformin 500mg BID. A1c 6.8% on 07/27/23. Complications include h/o diabetes related infections. Hold RETAIL ANALYTICS MANAGER metformin while admitted. Continue statin. 11/12 got 25u lantus (<0.2/kg) and 35u aspart. Likely needs increase in insulin dosing but also use caution with impaired renal clearance / worsening renal function and this can contribute to hypoglycemia. Serum glucose levels are slightly improved on RETAIL ANALYTICS MANAGER regimen of 30 U daily Lantus. One reading of 69 yesterday - unclear if patient had any symptoms. Continue current dosing for now with monitoring of serum glucose levels. Paranoid schizophrenia - restarted RETAIL ANALYTICS MANAGER meds (escitalopram 20mg qhs, trazodone 50mg qhs, prazosin 1mg qhs). Given paliperidone (Invega) IM on 11/12/23 (due every 4 weeks for schizophrenia) Tobacco use - offer nicotine patches, gum, lozenges while inpatient H/o TBI Obesity RECOMMENDATIONS 11/15/23 Continue Lantus to 30 U qd Continuing amlodipine, monitoring BP to determine if second agent needed with recent improvement Resume patient's RETAIL ANALYTICS MANAGER losartan 50mg PO daily when Cr is closer to baseline (likely ~1.0) Strict I/O, monitor UOP. Avoid nephrotoxins (IV contrast, NSAIDs), renal dosing of meds Medicine will continue to follow. Please page Hospitalist Consult A on [employer] for any further issues or questions. SUBJECTIVE/Events [...] today 11/18. Labs reviewed Scar Leyva MD [facility] Medicine * Kenrick Fisher Chi, PT - 11/19/2023 1:21 PM CDT Physical Therapy Patient not seen today d/t prioritisation/time constraints. Kenrick Fisher PT License #[id number] PT Tel #: [phone] On [employer] * Nicola Vasquez MD - 11/19/2023 11:54 [...] 2/2 uncontrolled Td2m. Paranoid schizophrenia - continue user acceptance tester escitalopram 20mg qhs, trazodone 50mg qhs, prazosin 1mg qhs (ordered) - receives outpatient paliperidone (Invega) IM every 4 weeks for schizophrenia at [place], unclear when last dose was. 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 male pmhx of T2DM with prior right toe amput[facility]p [facility] x 2, currently [...] 1 of 2 Imaging results: Reviewed in [facility] Gulshan José MD ID fellow, [...] CDT 11/19/23 1038 Rapid Rounds Attendance Charge nurse;sales communications manager;gas worker Expected Discharge Disposition SNF (TCU) Today [...] mgmt/ADL: 23 minutes Chayo Townsend, OTR/L Pager: [facility] OT Department Problem: Loss of [place] With ADLs, Risk for Goal: Will complete lower body dressing Description: Patient will complete lower body dressing with Modified [place] (6). Outcome: In progress Goal: Will toilet self Description: Patient will toilet self with Modified [place] (6). Outcome: In progress * Paula Black [...] standpoint. Patient follows with Dr Hayden in [facility] and would prefer to follow up with him upon discharge. We are happy to schedule anappointment with patient if he wishes to follow up with our team. Please page international guest coordinator resident with questions. Interval History Patient was [...] mgmt/ADL: 35 minutes Chayo Townsend OTR/L Pager: [employer] OT Department Problem: Loss of [place] With ADLs, Risk for Goal: Will complete lower body dressing Description: Patient will complete lower body dressing with Modified [place] (6). Outcome: In progress Goal: Will toilet self Description: Patient will toilet self with Modified [place] (6). Outcome: In progress * Kenrick Fisher Chi, PT - 11/18/2023 3:23 PM CDT Problem: Decreased Transfer Skills Goal: Patient will transfer sit to/from stand Description: Patient will transfer sit to/from stand while Heel touch WB on L LE in post-op shoe with (6) Modified [place] in order to mobilize in home by [...] up. Reconfirmed that he lives in an [facility]- a 1 floor building. Has his own room w a toilet inside. He shares bathing facilities wother residents in the house. He eats his meals and snacks in the dining room. He has NO stairs to negotiate. O:[employer] Used: None needed Mental Status Mental Status: [...] remain heel touch WB on L LE. RETAIL ANALYTICS MANAGER Appropriate: Yes Kenrick Fisher PT 11/18/2023 Pager: [...] are above goal here (FPG goal <150). RETAIL ANALYTICS MANAGER lantus 30 units BID, lispro 10 units TID AC, metformin 500mg BID. A1c 6.8% on 07/27/23. Complications include h/o diabetes related infections. Hold RETAIL ANALYTICS MANAGER metformin while admitted. Continue statin. 11/12 got 25u lantus (<0.2/kg) and 35u aspart. Likely needs increase in insulin dosing but also use caution with impaired renal clearance / worsening renal function and this can contribute to hypoglycemia. Serum glucose levels are slightly improved today with increase in Lantus to 28 U; increasing today to RETAIL ANALYTICS MANAGER dose of 30 U Lantus daily. Paranoid schizophrenia - restarted RETAIL ANALYTICS MANAGER meds (escitalopram 20mg qhs, trazodone 50mg qhs, prazosin 1mg qhs). Given paliperidone (Invega) IM on 11/12/23 (due every 4 weeks for schizophrenia) Tobacco use - offer nicotine patches, gum, lozenges while inpatient H/o TBI Obesity RECOMMENDATIONS 11/15/23 Increased Lantus to 30 U qd Continuing amlodipine, carvedilol discontinued as patient noted some dizziness and BP now near goal. Resume patient's RETAIL ANALYTICS MANAGER losartan 50mg PO daily when Cr is closer to baseline (likely ~1.0) Strict I/O, monitor UOP. Avoid nephrotoxins (IV contrast, NSAIDs), renal dosing of meds Medicine will continue to follow. Please page Hospitalist Consult A on [employer] for any further issues or questions. SUBJECTIVE/Events of Past 24 Hours: Hospital Day: 8 Mr Low feels good today; more relaxed. Pain controlled. Hoping for discharge soon; he's curiousif his sister might be able to take him home tomorrow, or potentially to a facility (?[facility]?) for extra cares and assistance [...] today 11/17. Labs reviewed Scar Leyva MD [facility] Medicine * Jabari Colby, RN - 11/18/2023 [...] Services Address Phone Fax Patient Preferred [facility] [place] Pending - Request Sent N/A [address] [address] [phone] -- Internal Comment last updated by Caridad Dorsey 11/19/2023 0745 LVM for admissions .Caridad Dorsey, 11/19/2023 7:44 AM Sent email to [place].Caridad Dorsey, 11/17/2023 2:24 PM [facility] Pending - Request Sent N/A [address] [facility] [address] [phone] -- Internal Comment last updated by Caridad Dorsey 11/19/2023 0818 LVM for admissions.Caridad Dorsey, 11/19/2023 8:17 AM LVM for admissions.Caridad Dorsey, 11/18/2023 8:37 AM [facility] Declined N/A [address] [facility] [address] -- [facility] Declined No Contract with Patient's Insurance Carrier N/A [address] [place] [address] [phone] -- [facility] Declined Current smoking, Acuity too high N/A [id number] [facility] [id number] -- Internal Comment last updated by Caridad Dorsey 11/18/2023 0831 LVM for admissions.Caridad Dorsey, 11/18/2023 8:[address] [facility] Declined Bed not available N/A [address] [facility] [phone] -- Internal Comment last updated by Caridad Dorsey 11/18/2023 0834 No bd available until next week. Caridad Dorsey, 11/18/2023 8:34 AM [facility] Declined Bed not available N/A [address] [facility] [address] [phone] -- Home Medical Care No active coordination exists for this encounter. * Aretha Damon MD - 11/18/2023 8:26 AM CDT ID PROGRESS NOTE Matt Low 1980 Male [id number] ASSESSMENT: # Necrotizing fascitis/Deamr's gangrene s/p debridement # Left hallux gangrene s/p amputation # Type II diabetes mellitus 43 y.o. male pmhx of T2DM with prior right toe [facility] s/p [facility]&D x 2, [...] 11/17/[address] Mullen-operative note available in [employer] Seen this a.m. and was quite sleepy. [...] 1 of 2 Imaging results: Reviewed in [facility] Gulshan José MD, 11/18/2023 8:26 [...] standpoint. Patient follows with Dr Hayden in [facility] and would prefer to follow up with him upon discharge. We are happy to schedule anappointment with patient if he wishes to follow up with our team. Please page international guest coordinator resident with questions. Patient was discussed with international guest coordinator staff, Interval History Patient was seen and [...] urine output closely. Paranoid schizophrenia - continue user acceptance tester escitalopram 20mg qhs, trazodone 50mg qhs, prazosin 1mg qhs (ordered) - receives outpatient paliperidone (Invega) IM every 4 weeks for schizophrenia at [place], unclear when last dose was. Would give [...] renal dysfunction, though UOP is acceptable. Holding RETAIL ANALYTICS MANAGER losartan 50mg daily. Started amlodipine 10 mg [...] are above goal here (FPG goal <150). RETAIL ANALYTICS MANAGER lantus 30 units BID, lispro 10 units TID AC, metformin 500mg BID. A1c 6.8% on 07/27/23. Complications include h/o diabetes related infections. Hold RETAIL ANALYTICS MANAGER metformin while admitted. Continue statin. 11/12 got [...] and diet improve. Paranoid schizophrenia - restarted RETAIL ANALYTICS MANAGER meds (escitalopram 20mg qhs, trazodone 50mg qhs, prazosin 1mg qhs). Given paliperidone (Invega) IM on 11/12/23 (due every 4 weeks for schizophrenia) Tobacco use - offer nicotine patches, gum, lozenges while inpatient H/o TBI Obesity RECOMMENDATIONS 11/15/23 Continue Lantus 28 U daily for now; may need to continue titration as diet and renal function improve Began carvedilol and amlodipine as above Resume patient's RETAIL ANALYTICS MANAGER losartan 50mg PO daily when Cr is closer to baseline (likely ~1.0) Switching to IV PRN hydralazine for more aggressive BP control Strict I/O, monitor UOP. Avoid nephrotoxins (IV contrast, NSAIDs), renal dosing of meds Medicine will continue to follow. Please page Hospitalist Consult A on [employer] for any further issues or questions. SUBJECTIVE/Events [...] check back tomorrow. Shannan Partida OTR/Brian Pager: [phone] * Mabel Mathews RN - 11/17/2023 11:27 AM CDT TRANSFER IN NOTE D: Patient transferred in to STNU 2 from PACU at 1100. Patient condition on arrival: Stable, a/o X4, VSS, on RA, . Patient Belonging 11/10/2023 1440 Reason for Inventory: ED/APS Admission Patient or family informed of Patient Valuables and Belongings Policy (#[id number]): Due to patient condition, [facility] staff will inventory and secure patient valuables [...] AM CDT 11/17/231033 Rapid Rounds Attendance Physician;Charge nurse;sales communications manager;gas worker;Bedside nurse Expected Discharge Disposition SNF (TCU for wound care) Today we still await: Procedure (Comment) (toe amputation today) Case Management Discharge Milestones Documentation CM Assessment Completed? Yes Patient/Family agree w/DC plan? Yes Transportation Plan WC/Taxi/Stretcher Prior Auth/Pre-Admit Screen (!) Not completed 11/17/231033 Rapid Rounds Attendance Physician;Charge nurse;sales communications manager;gas worker;Bedside nurse Expected Discharge Disposition SNF (TCU for wound care) Today we still await: Procedure (Comment) (toe amputation today) Case Management Discharge Milestones Documentation CM Assessment Completed? Yes Patient/Family agree w/DC plan? Yes Transportation Plan WC/Taxi/Stretcher Prior Auth/Pre-Admit Screen (!) Not completed Pt will DC to TCU, as his senior living cannot do the daily dressing changes to [...] discharge. Patient follows with Dr Hayden in [facility] CHIEF COMPLAINT: Immediate postop HISTORY OF PRESENT [...] urine output closely. Paranoid schizophrenia - continue user acceptance tester escitalopram 20mg qhs, trazodone 50mg qhs, prazosin 1mg qhs (ordered) - receives outpatient paliperidone (Invega) IM every 4 weeks for schizophrenia at [place], unclear when last dose was. Would give dose here if due and if available on formulary. Tobacco use - offer nicotine patches, gum, lozenges while inpatient - cessation counseling as able Neuro/Pain Control: Multimodal -Scheduled: Tylenol, Gabapentin, cyclobenzaprine, Lexapro, Trazodone -PRN: Hydromorphone Skin/Wounds: Dressing changed (11/16) DVT prophylaxis: SCDs, Lovenox 40 BID Weight Bearing: WBAT Activity: Ad celai/with assist Disposition: Nicola De Los Santos MD, [...] Fisher, PT License #[id number] PT Tel #: [phone] On [employer] or [employer] * Nico Hogue MD - 11/16/2023 9:49 [...] Actinomyces species Medicine consult (11/14): Resume patient's RETAIL ANALYTICS MANAGER losartan 50mg PO daily when Cr is [...] urine output closely. Paranoid schizophrenia - continue user acceptance tester escitalopram 20mg qhs, trazodone 50mg qhs, prazosin 1mg qhs (ordered) - receives outpatient paliperidone (Invega) IM every 4 weeks for schizophrenia at [place], unclear when last dose was. Would give [...] are above goal here (FPG goal <150). RETAIL ANALYTICS MANAGER lantus 30 units BID, lispro 10 units TID AC, metformin 500mg BID. A1c 6.8% on 07/27/23. Complications include h/o diabetes related infections. Hold RETAIL ANALYTICS MANAGER metformin while admitted. Continue statin. 11/12 got [...] renal dysfunction, though UOP is acceptable. Holding RETAIL ANALYTICS MANAGER losartan 50mg daily. Agree with prn hydralazine but would changeto PO. Could start new agent (such as amlodipine) but patient should ultimately resume ARB once renal function is improved Paranoid schizophrenia - restarted RETAIL ANALYTICS MANAGER meds (escitalopram 20mg qhs, trazodone 50mg qhs, prazosin 1mg qhs). Given paliperidone (Invega) IM on 11/12/23 (due every 4 weeks for schizophrenia) Tobacco use - offer nicotine patches, gum, lozenges while inpatient H/o TBI Obesity RECOMMENDATIONS 11/15/23 Continue Lantus 28 U daily for now; may need to continue titration as diet and Resume patient's RETAIL ANALYTICS MANAGER losartan 50mg PO daily when Cr is [...] follow. Please page Hospitalist Consult A on [employer] for any further issues or questions. SUBJECTIVE/Events [...] at baseline. Labs reviewed Scar Leyva MD [facility] Medicine * Chayo Townsend, OTR/L - 11/15/2023 2:00 PM CDT Occupational Therapy Progress Note 11/15/2023 OT Discharge Recommendations Discharge Recommendations: Post-acute placement recommended (versus back to [facility] with recommended assist- unclear if he could [...] brief walk in hallway- pt tends to tack picker walker versus push- does not use [...] provide clear picture of assistance available at [facility]- however, per chart review only receives assistance [...] Pager: Lisa OT Department Problem: Loss of [place] With ADLs, Risk for Goal: Will complete lower body dressing Description: Patient will complete lower body dressing with Modified [place] (6). 11/15/2023 1400 by Chayo Townsend OTR/Brian Outcome: In progress 11/15/2023 1357 by Chayo Townsend OTR/Brian Outcome: In progress Goal: Will toilet self Description: Patient will toilet self with Modified [place] (6). 11/15/2023 1400 by Chayo Townsend OTR/Brian Outcome: In progress 11/15/2023 1357 by Chayo Townsend OTR/Brian Outcome: In progress * Kenrick Fisher Chi, PT - 11/15/2023 11:23 AM CDT Images from the original note were not included. Problem: Decreased Transfer Skills Goal: Patient will transfer sit to/from stand Description: Patient will transfer sit to/from stand with (6) Modified [place] in order to mobilize in home by 11/28/23. Outcome: In progress Problem: Decreased Ambulatory Skills Goal: Improve gait Description: Ambulate 100 meters using No assistive devices with (6) Modified [place] in orderto mobilize in home and community [...] transfer supine to/from sit with (6) Modified [place] in order to mobilize in/out of bed [...] sometimes does not do stairs, at his [facility]. Ambulated independently without an AD. Said hiswalking [...] vs try no AD. Try stairs eventually? RETAIL ANALYTICS MANAGER Appropriate: Yes Kenrick Fisher, PT 11/15/2023 Pager: [...] Actinomyces species Medicine consult (11/14): Resume patient's RETAIL ANALYTICS MANAGER losartan 50mg PO daily when Cr is [...] urine output closely. Paranoid schizophrenia - continue user acceptance tester escitalopram 20mg qhs, trazodone 50mg qhs, prazosin 1mg qhs (ordered) - receives outpatient paliperidone (Invega) IM every 4 weeks for schizophrenia at [place], unclear when last dose was. Would give [...] Crawford LGSW - 11/15/2023 9:39 AM CDT Oil Agent Progress Note Spoke to SABINE Hartman at [facility], where patient resides. Informed her pt will likely be ready for discharge towards the end of the week per MDR. Asked if they are able to assist with daily wound care. Unfortunately facility cannot help with this. The facility helps with med management, meals, housekeeping, and laundry. May have to explore options for home health or TCU for woundcare. [facility] - [phone] opt 3. Dominga Crawford LGSW, 11/15/2023 2:59 [...] may be able to return to senior living given participation with PT on 11/13 but [...] are above goal here (FPG goal <150). RETAIL ANALYTICS MANAGER lantus 30 units BID, lispro 10 units TID AC, metformin 500mg BID. A1c 6.8% on 07/27/23. Complications include h/o diabetes related infections. Hold RETAIL ANALYTICS MANAGER metformin while admitted. Continue statin. 11/12 got 25u lantus (<0.2/kg) and 35u aspart. Likely needs increase in insulin dosing but also use caution with impaired renal clearance / worsening renal function and this can contribute to hypoglycemia. HTN - above goal overnight. ARB is being held. Also may be hypervolemic given renal dysfunction, though UOP is acceptable. Holding RETAIL ANALYTICS MANAGER losartan 50mg daily. Agree with prn hydralazine but would changeto PO. Could start new agent (such as amlodipine) but patient should ultimately resume ARB once renal function is improved Paranoid schizophrenia - restarted RETAIL ANALYTICS MANAGER meds (escitalopram 20mg qhs, trazodone 50mg qhs, prazosin 1mg qhs). Given paliperidone (Invega) IM on 11/12/23 (due every 4 weeks for schizophrenia) Tobacco use - offer nicotine patches, gum, lozenges while inpatient H/o TBI Obesity RECOMMENDATIONS 11/15/23 Increase lantus to 28 units q24h Resume patient's RETAIL ANALYTICS MANAGER losartan 50mg PO daily when Cr is closer to baseline (likely ~1.0) Recommend hydralazine 10mg PO q6h prn for SBP >180 Strict I/O, monitor UOP. Avoid nephrotoxins (IV contrast, NSAIDs), renal dosing of meds Medicine will continue to follow. Please page Hospitalist Consult A on [employer] for any further issues or questions. SUBJECTIVE/Events [...] - 11/14/2023 2:55 PM CDT SURGERY PROGRESS NOTE--OUTDOOR FITNESS TRAINER Matt Low : 1980 Sex: male SIGNIFICANT [...] urine output closely. Paranoid schizophrenia - continue user acceptance tester escitalopram 20mg qhs, trazodone 50mg qhs, prazosin 1mg qhs (ordered) - receives outpatient paliperidone (Invega) IM every 4 weeks for schizophrenia at [place], unclear when last dose was. Would give [...] assist Disposition: CHRIS Cordero Ma MS3 11/14/2023 [facility] Department of Surgery Pager: via telemediq [...] are above goal here (FPG goal <150). RETAIL ANALYTICS MANAGER lantus 30 units BID, lispro 10 units TID AC, metformin 500mg BID. A1c 6.8% on 07/27/23. Complications include h/o diabetes related infections. Hold RETAIL ANALYTICS MANAGER metformin while admitted. Continue statin. 11/12 got 25u lantus (<0.2/kg) and 35u aspart. Likely needs increase in insulin dosing but also use caution with impaired renal clearance / worsening renal function and this can contribute to hypoglycemia. HTN - above goal overnight. ARB is being held. Also may be hypervolemic given renal dysfunction, though UOP is acceptable. Holding RETAIL ANALYTICS MANAGER losartan 50mg daily. Agree with prn hydralazine but would changeto PO. Could start new agent (such as amlodipine) but patient should ultimately resume ARB once renal function is improved Paranoid schizophrenia - restarted RETAIL ANALYTICS MANAGER meds (escitalopram 20mg qhs, trazodone 50mg qhs, [...] follow. Please page Hospitalist Consult A on [employer] for any further issues or questions. SUBJECTIVE/Events [...] species 11/10/2023 1713 11/12/2023 1417 ANAEROBE CULTURE [[id number]] (Abnormal) Tissue from Perineal 2:Perineal tissue Preliminary result Component Value Preliminary Report Positive Culture Many mixed anaerobes present. Culture in progress. POS 11/10/2023 1713 11/12/2023 1441 TISSUE CULTURE:INCLUDES GRAM STAIN [[id number]] (Abnormal) Tissue from Perineal 2:Perineal tissue Preliminary [...] POS 11/10/2023 1712 11/12/2023 1416 ANAEROBE CULTURE [[id number]] (Abnormal) Swab from Perineal 1: Perineal tissue swab Preliminary result Component Value Preliminary Report Moderate Anaerococcus vaginalis isolated. Culture in progress. POS Organism ANAEROCOCCUS VAGINALIS POS 11/10/2023 1712 11/12/2023 1534 WOUND CULTURE:GRAM STAIN OPTIONAL [[id number]] (Abnormal) Swab from Perineal 1: Perineal tissue [...] NPO with excellent blood sugarcontrol. - hold user acceptance tester metformin while admitted, resume on discharge - [...] hypertension while here - agree with holding user acceptance tester antihypertensives (losartan 50mg daily, , consider restarting closer to DC - restart user acceptance tester rosuvastatin 10mg qHS Paranoid schizophrenia - restart user acceptance tester escitalopram 20mg qhs, trazodone 50mg qhs, prazosin 1mg qhs (ordered) - receives outpatient paliperidone (Invega) IM every 4 weeks for schizophrenia at [place], unclear when last dose was. Would give [...] RECOMMENDATIONS: Demar's Gangrene Necrotizing fasciitis Transferred from [facility] for scrotal swelling, pain, concern for Demar's [...] NPO with excellent blood sugarcontrol. - hold user acceptance tester metformin while admitted, resume on discharge - [...] hypertension while here - agree with holding user acceptance tester antihypertensives (losartan 50mg daily, , consider restarting closer to DC - restart user acceptance tester rosuvastatin 10mg qHS Paranoid schizophrenia - restart user acceptance tester escitalopram 20mg qhs, trazodone 50mg qhs, prazosin 1mg qhs (ordered) - receives outpatient paliperidone (Invega) IM every 4 weeks for schizophrenia at [place], unclear when last dose was. Would give dose here if due and if available on formulary. Tobacco use - offer nicotine patches, gum, lozenges while inpatient - cessation counseling as able (pt unable to engage today) H/o TBI Obesity PLAN: Neuro/Pain Control: Multimodal Scheduled: Tylenol, Gabapentin, cyclobenzaprine PRN: Hydromorphone CV: Monitor blood pressure and pulse and intervene as needed. Restart user acceptance tester rosuvastatin 10mg qHS Pulm: Encourage incentive spirometer [...] Disposition: Nico Murray MD, 11/13/2023 8:[address] [facility] Department of Surgery Pager: via telemediq [...] Type 2 DM with neuropathy, retinopathy - RETAIL ANALYTICS MANAGER lantus 30 units BID, lispro 10 units TID AC, [id number] BID. A1c 6.8% on 07/27/23. Complications include h/o diabetes related infections. Hold RETAIL ANALYTICS MANAGER metformin while admitted. Continue statin. HTN - mostly at goal off antihypertensives. Holding RETAIL ANALYTICS MANAGER losartan 50mg daily Paranoid schizophrenia - restarted RETAIL ANALYTICS MANAGER meds (escitalopram 20mg qhs, trazodone 50mg qhs, [...] follow. Please page Hospitalist Consult A on [employer] for any further issues or questions. SUBJECTIVE/Events [...] recent) Gala Salinas, PharmD 11/12/2023 14:59 Pager: ([employer]) * Gracia Kumar, RN - 11/12/2023 1:00 PM CDT 11/12/23 [id number] Seafood Processor Used. Seafood Processor Used None needed (interview conducted with AL staff) Social Information Living Situation long-term Facility Admitted From hospital (Admitted from [facility]) Name of facility [facility] Patient medically appropriate to transfer back to outside hospital? No Patient Identified Support System AL staff Services Receiving SURVIVAL SPECIALIST / Skilled Services;Case Management;Waivered services (see comment) Complex Medical Needs Other (see comment) Transportation Used for Discharge wound care Safety Concerns None Behavioral Health Concerns None Patient Family Goals Patient's Discharge Goal back to AL Family's Discharge Goal no family Plan/Interventions Expected Discharge Disposition Retirement Was Patient Choice Provided? No Who was Choice Provided to? Other (comment) (pt will return to RETAIL ANALYTICS MANAGER facility when medically stable) Patient Information Verification Verified demographic information, including SSN, Next of Kin, and Guardianship Yes Verified PCP Yes If post-acute placement is needed, have vaccination status needs been addressed? Yes Pt admitted from [facility] after transfer to there from senior living for treatment of Demar's gangrene of perineal area * Nico Hogue MD - 11/12/2023 8:02 AM CDT SURGERY PROGRESS NOTE--OUTDOOR FITNESS TRAINER Matt Thibodeaux Daryamaryzena : 1980 Sex: male [...] Disposition: Nico Murray MD, 11/12/2023 8:[address] [facility] Department of Surgery Pager: via telemediq [...] Comments: RN: Gloria Velez RN Extension #: [phone] * Robert Kruse MDIV - 11/11/2023 1:43 PM CDT SPIRITUAL CARE VISIT SUMMARY Matt Low : 1980 Sex: male LOS: 1 day Reason for visit: Referral Assessment: Pt/family uncertain/anxious/frustrated;Pt/family coping/relieved Intervention: Compassionate support;Facilitate communication;Lead/support spiritual rituals Outcome: Situation assessed;Gratitude expressed;Ritual provided Notes: I met with Matt at bedside during rounds. Matt shared that he wanted a prayer for healing and anabaptist of his health which I offered as requested. He had no other support needs at this time. Plan: Spiritual Care Team is available to support patient and family as needed via number [phone]. Robert Kruse MDIV, 11/11/2023 1:43 PM Number: [phone] * Hannah Boland RT - 11/11/2023 12:40 [...] male D: Matt Low was admitted to [facility] from PACU at 0600 for [...] informed of Patient Valuables and Belongings Policy (#[id number]): Due to patient condition, [facility] staff will inventory and secure patient valuables Items Needing Securement: Cell phone Cell Phone Secured?: Yes Cell Phone Visually Damaged: Yes Patient Belongings: Clothing Clothing Comments: shirt, 1 shoe, 1 sock, * Gracia Tirado MDIV - 11/10/2023 3:26 PM CDT District Or District Office Director Stabilization Room Note Matt Low : 1980 Sex: male LOS: 0 days Initial Description: Matt Low with history of gangrene. Pt was responding appropriately to questions. Patient and Family Context: No family present. Pt came from a facility in [place]. Plan: Spiritual Care Team is available to support patient and family as needed via number [phone]. 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 He has a history of T2DM on 10u long acting insulin three times daily, situs inversus, and TBI several years ago and lives in a senior living. 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 CT OUTSIDE READ ABD/PELV (11/10/2023 15:07) [...] the patient on the date of the ticket writer's note. I discussed with the ticket writer of the note and agree with their findings and plan documented in the ticket writer's note from above. Any revisions by [...] medications. Assessment: Pertinent points to note: -- RETAIL ANALYTICS MANAGER losartan, metformin and ibuprofen all discontinued due to ongoing acute kidney injury. I have reviewed the patient's medications for discharge and have discussed the necessary changes with the provider. Changes have been made and medication list updated and complete. Please page with any questions. Gala Salinas, PharmD 11/24/2023 14:22 For questions regarding this note, please contact pharmacist on service at PharmD STN (Telmed[employer]) [phone]. If no response within needed timeframe, please contact central pharmacy via phone at [phone]. Planned discharge medications are: Medication List Medications [...] 2 Diabetes Reduced from twice daily dosing RETAIL ANALYTICS MANAGER, per Medicine recommendations. insulin LISPRO 100 UNIT/ML Kwikpen Commonly known as: HumaLOG KwikPen Inject 6 UNITS subcutaneously 3 times daily before meals. Reduced from 10 units per dose RETAIL ANALYTICS MANAGER, per Medicine recommendations. Invega Sustenna 156 MG/ML [...] follow. Patient follows with Dr Hayden in [place] RETAIL ANALYTICS MANAGER Please page international guest coordinator resident with questions. Patient was seen with international guest coordinator staff, Dr. Black CHIEF COMPLAINT: Left hallux wound HISTORY OF PRESENT ILLNESS: Matt Low is a 43 y.o. male presenting with left hallux necrosis. Patient initially presented to [facility] for concern for foreigners gangrene on 11-09. 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 A1c 6.8% on 07/27/23. Complications include h/o diabetes related infections. Hold RETAIL ANALYTICS MANAGER metformin while admitted. Continue statin. HTN - mostly at goal off antihypertensives. Holding RETAIL ANALYTICS MANAGER losartan 50mg daily Paranoid schizophrenia - restarted RETAIL ANALYTICS MANAGER meds (escitalopram 20mg qhs, trazodone 50mg qhs, prazosin 1mg qhs). Given paliperidone (Invega) IM on 11/12/23 (due every 4 weeks for schizophrenia) Tobacco use - offer nicotine patches, gum, lozenges while inpatient Medical History No past medical history on file. SOCIAL HISTORY Information gathered from: Patient Home: senior living in [place] Prior level of function: independent Baseline Ambulation: [...] Status: Oriented X 3, Alert, and Cooperative, [facility] Follows Direction: Yes, 1step OBJECTIVE Initial patient [...] but thought at hospital in [facility]. Anticipate pt will be able to d/c [...] when ready, stairs as able, standing balance. RETAIL ANALYTICS MANAGER Appropriate: Yes Participated in goal setting and treatment planning: Patient Agrees with goals and treatment plan: Patient - Yes. Che Garcia, PT 11/14/2023 Pager: [facility] PT Department * Guru Franco MD - 11/13/2023 1:14 PM CDTAssociated Order(s): CONSULT TO INFECTIOUS DISEASE ID-2 NEW CONSULT NOTE Matt Low 1980 male [id number] REASON FOR CONSULT: I was asked to see Matt Thibodeaux Daryabailey by Zac Churchill regarding Demar's gangrene. ASSESSMENT: 43 y.o. male pmhx of T2DM with prior right toe amputations transferred from [facility] forFournier's gangrene, s/p I&D x 2, currently [...] with prior right toe amputations transferred from [facility] forscrotal swelling, pain, concern for Demar's gangrene, [...] tissue fungal cx Imaging results: [facility], 11/13/2023 1:14 PM FACULTY NOTE I [...] Patient is living in a/an : senior living Prior Level of Function: ADLs/IADLs: Received assistance [...] to month and year; [facility]; intermittently follows 1 steps commands; confused [...] and 11/10). At baseline pt from senior living. Pt unable to provide any social history [...] Eval: 18 minutes Therapist: EDWIN Alvarado/Brian Pager: [facility] Occupational Therapy Department * Sophie Barajas MD - 11/12/2023 10:07 AM CDTAssociated Order(s): CONSULT TO MEDICINE SERVICES INTERNAL MEDICINE CONSULT- STAFF Matt Low : 1980 Sex: male Reason for Consult: Diabetes management, antibiotic selection IMPRESSION AND RECOMMENDATIONS: Demar's Gangrene Necrotizing fasciitis Transferred from [facility] for scrotal swelling, pain, concern for Demar's [...] NPO with excellent blood sugarcontrol. - hold user acceptance tester metformin while admitted, resume on discharge - [...] hypertension while here - agree with holding user acceptance tester antihypertensives (losartan 50mg daily, , consider restarting closer to DC - restart user acceptance tester rosuvastatin 10mg qHS Paranoid schizophrenia - restart user acceptance tester escitalopram 20mg qhs, trazodone 50mg qhs, prazosin 1mg qhs (ordered) - receives outpatient paliperidone (Invega) IM every 4 weeks for schizophrenia at [place], unclear when last dose was. Would give [...] long enough to participate indiscussion. Transferred from [facility] for scrotal pain and swelling, concern for [...] including pre-visit review of separately obtained history, [id number] interaction performing medically appropriate physical exam, patientcounseling/education, [...] 3:41 PM CDT Operative Report - PGY2 [facility] Matt Anne : 1980 Sex: M [...] 6:07 PM CDT OPERATIVE REPORT - PGY5 [facility] Matt Low : 1980 Sex: male [...] PM CDT Pt BIBA as transfer from [place]. 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 Pt given Ertapenem 1gm and Insulin 10 units RETAIL ANALYTICS MANAGER. BS 400 at outside hospital. Pt is [...] Physical Therapy Inpatient Discharge Summary Stephanie Low [id number] PT Discharge Recommendations DC Recommendations: Post-acute placement [...] LE in post-op shoe with (6) Modified [place] in order to mobilize in home by [...] Therapist: Kenrick Fisher, PT Date: 11/24/2023 Pager: [facility] PT Department * Discharge non-MD/non-MIRI Summaries - Lior Azul - 11/25/2023 7:36 AM CDT Summary: DC to SNF Care Coordination Discharge Note Expected DC Date: 11/25/23 Expected DC Time: 13h30 Final Discharge Destination: Selected Continued Care - Admitted Since 11/10/2023 Destination Coordination complete. Service Provider Selected Services Address Phone Fax Patient Preferred [facility] [phone] [phone] -- Summary: Insurance approved Patient has been accepted to continue rehabing at the aforementioned post acute facility. Patient is on board with plan. CC spoke with patient in person in the room Emergency Room Registered Nurse also confirmed with Minnie REGALADO at . Also, DC summary faxed to [phone], via [employer]. WC ride has been ordered. CONTENT ADMINISTRATOR (Senior Director Creative Services Jointer Machine Operator) will schedule. Check [id number] for confirmation. Medical team is aware. They will work writing DC orders. CC sent DC orders to SNF by Epic fax. Medical team is aware any controlled substances must be printed and signed to be sent in physical form to the TCU. PLEASE MAKE SURE RX IS COMPLETE. MAKE SURE QUANTITY IS ADDED. Also, PSC/DECAL MAKER/RN will fax it to TCU olga (this is required so in case of pain during transport, pain control can be addressed) Bedside nurse: please confirm this is done. A Tel[employer] thread has been started. CC will continue to follow until DC. Please use TelNuk[employer] for any further questions. * Nursing Assessment [...] Townsend, OTR/L - 11/24/2023 12:59 PM CDT [facility] Occupational Therapy Discharge Summary Stephanie Low [...] subacute rehab. Patient Name: Stephanie Low MR#: [id number] Date of : 1980 Age: 43 y.o. 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.] Palomo DPM - 11/17/2023 9:[address] [facility] Immediate Post Operative Note Note written: [...] Patient to the OR at 0800. This ticket writer called to notify C4 PLANNERstaff respiratory therapist of hypertension. Pt had left the room prior to [facility] notifying this ticket writer of BP of 222/101. Vitals: 11/17/23 [...] wants to go outside to smoke, and ticket writer encouraged the patient not to go [...] Cardiac Assessment Within Defined Limits except for: General Technician - remote telemetry Respiratory Assessment Within Defined [...] Cardiac Assessment Within Defined Limits except for: General Technician - remote telemetry Respiratory Assessment Within Defined [...] Defined Limits except for: Chest Pain: No General Technician - remote telemetry Pacemaker: Pacemaker: No Respiratory [...] Cardiac Assessment Within Defined Limits except for: General Technician - remote telemetry Comments: NSR Respiratory Within [...] Cardiac Assessment Within Defined Limits except for: General Technician - remote telemetry Respiratory Assessment Within Defined [...] Cardiac: Assessment Within Defined Limits except for: General Technician - remote telemetry Respiratory: Assessment Within Defined [...] Note - PGY-1 Matt Low 43 y.o. [id number] Paged at 03:34 on 11/14/23 for elevated [...] for SBP > 180 - Potentially resume RETAIL ANALYTICS MANAGER losartan per primary team in the AM [...] Cardiac Assessment Within Defined Limits except for: General Technician - remote telemetry Respiratory Assessment Within Defined [...] Cardiac Assessment Within Defined Limits except for: General Technician - remote telemetry Pacemaker: Pacemaker: No Respiratory [...] Cardiac Assessment Within Defined Limits except for: General Technician - remote telemetry Respiratory Assessment Within Defined [...] Cardiac Assessment Within Defined Limits except for: General Technician - remote telemetry Respiratory Assessment Within Defined [...] Cardiac Assessment Within Defined Limits except for: General Technician - remote telemetry Respiratory Assessment Within Defined [...] Nichols MD - 11/11/2023 3:[address] [facility] Immediate Post Operative Note Note written: [...] Osborn MD - 11/10/2023 5:[address] [facility] Immediate Post Operative Note Note written: [...] at time of review in ED - user acceptance tester abx administered * ED Stabilization Note - Allyssa Drummond MD - 11/10/2023 2:43 PM CDT Emergency Department Stabilization Room Note [facility] Arrival Date and Time: 11/10/2023 2:28 PM MEDICAL TEAM Attending: MD MARCELLUS Grullon Resident: Allyssa Drummond MD RN: Enmanuel [facility]: Doreen Consultants: General surgery PRE-HOSPITAL EVENTS & HISTORY Matt Low is a 43 y.o. 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 Patient has a history of type 2 diabetes on 3 times daily 10 units long-acting insulin, situs inversus, and TBI several years ago for which he lives in a senior living. 2 days ago he noticed pain in his perineum, it has gotten worse over the past several days. His girlfriend urged him to go to the hospital today and the physicians at [place] were concerned for Demar'sgangrene and transferred him [...] CRP 30, procal 0.83, WBC 20 at [place]. We will draw an ESR and our [...] in this encounter Plan of Treatment Scheduled Referrals Name Type Priority Associated Diagnoses [...] POC Glucose 140(H) 70 - 100 mg/dL [facility] - POINT OF CARE Blood 11/25/2023 6:03 AM CDT Jessica Grullon MD LABORATORY [facility] - POINT OF CARE [address] [place] [address], * (ABNORMAL) POC GLUCOSE (11/24/2023 8:47 PM CDT) POC Glucose 156(H) 70 - 100 mg/dL [facility] POINT OF CARE Blood 11/24/2023 8:47 PM CDT Jessica Grullon MD LABORATORY Performing Organization Address City/[facility]/ZIP Co de Phone Number [facility] [address] [place] [address], [place] * (ABNORMAL) POC GLUCOSE (11/24/2023 4:56 PM CDT) POC Glucose 177(H) 70 - 100 mg/dL [facility] Blood 11/24/2023 4:56 PM CDT Jessica Grullon MD LABORATORY Performing Organization Address City/[facility] Co de Phone Number [facility] [address] [place] [address], [place] * (ABNORMAL) POC GLUCOSE (11/24/2023 11:22 AM CDT) POC Glucose 146(H) 70 - 100 mg/dL [facility] Blood 11/24/2023 11:2 2 AM CDT Jessica Grullon MD LABORATORY Performing Organization Address City/[facility]/ZIP Co de Phone Number [facility] [address] [place] [address], [place] * (ABNORMAL) POC GLUCOSE (11/24/2023 6:03 AM CDT) POC Glucose 147(H) 70 - 100 mg/dL [facility] Blood 11/24/2023 6:03 AM CDT Jessica Grullon MD LABORATORY Performing Organization Address City/[facility]/ZIP Co de Phone Number [facility] [address] [place] [address], [place] * (ABNORMAL) POC GLUCOSE (11/23/2023 7:52 PM CDT) POC Glucose 160(H) 70 - 100 mg/dL [facility] Blood 11/23/2023 7:52 PM CDT Jessica Grullon MD LABORATORY Performing Organization Address [facility] Co de Phone Number [facility] [address] [place] [address], [place] * (ABNORMAL) POC GLUCOSE (11/23/2023 4:18 PM CDT) POC Glucose 156(H) 70 - 100 mg/dL [facility] Blood 11/23/2023 4:18 PM CDT Jessica Grullon MD LABORATORY Performing Organization Address [facility] Co de Phone Number [facility] [address] [place] [address], [place] * (ABNORMAL) POC GLUCOSE (11/23/2023 11:13 AM CDT) [facility] POC Glucose 182(H) 70 - 100 mg/dL [facility] Blood 11/23/2023 11:1 3 AM CDT Jessica Grullon MD LABORATORY Performing Organization Address [facility] Co de Phone Number [facility] [address] [place] [phone], [place] * (ABNORMAL) PANEL BASIC METABOLIC (BMP) (11/23/2023 8:31 AM CDT) CO2 24 22 - 30 mmol/L [facility] LAB Glucose 192(H) 70 - 100 mg/dL [facility] LAB BUN 20 6 - 20 mg/dL [facility] LAB Creatinine 1.96(H) 0.70 - 1.25 mg/dL [facility] LAB Calcium 8.5(L) 8.6 - 10.0 mg/dL [facility] LAB Sodium 137 135 - 148 mmol/L [facility] Potassium 5.1 3.5 - 5.3 mmol/L [facility] Chloride 103 92 - 108 mmol/L [facility] eGFR (2020 CKD-EPI) 42(L) >=60 ml/min/1.7 3m2 [facility] Comment: The estimated glomerular filtration rate (eGFR) was calculated using the CKD-EPI 2020 creatinine equation, which does not include race as a factor. This equation is validated in individuals 18 years of age and older, and eGFR is normalized to a body surface area of 1.73m^2. AnGap 10 8 - 16 mmol/L [facility] LAB Blood 11/23/2023 8:31 AM CDT 11/23/2023 9:12 AM CDT Zac Churchill MD LABORATORY [facility] LAB [address] [address] * (ABNORMAL) CBC WITH PLATELET (11/23/2023 8:31 AM CDT) WBC 13.36(H) 4.00 - 10.00 k/cmm [facility] RBC 3.57(L) 4.60 - 6.00 m/cmm [facility] Hgb 10.0(L) 13.1 - 17.5 g/dL [facility] Hematocrit 31.5(L) 40.0 - 51.0 % [facility] MCV 88.2 80.0 - 100.0 fL [facility] MCH 28.0 25.0 - 32.0 pg [facility] MCHC 31.7 31.0 - 36.0 g/dL [facility] RDW 14.4 11.5 - 14.5 % [facility] LAB Plt 492(H) 150 - 400 k/cmm [facility] MPV 9.1 6.5 - 12.5 fL [facility] Blood 11/23/2023 8:31 AM CDT 11/23/2023 9:11 AM CDT Zac Churchill MD LABORATORY [facility] LAB [facility] [address] [place] [address] * (ABNORMAL) POC GLUCOSE (11/23/2023 6:43 AM CDT) POC Glucose 121(H) 70 - 100 mg/dL [facility] POINT [facility] CARE Blood 11/23/2023 6:43 AM CDT Jessica Grullon MD LABORATORY Performing Organization Address City/[facility]/ZIP Co de Phone Number [facility] POINT OF [facility] [address] [place] [address], [place] * POC GLUCOSE (11/22/2023 8:28 PM CDT) POC Glucose 95 70 - 100 mg/dL [facility] POINT [facility] CARE Blood 11/22/2023 8:28 PM CDT Jessica Grullon MD LABORATORY Performing Organization Address City/[facility]/ZIP Co de Phone Number [facility] POINT OF [address] [address], [place] * (ABNORMAL) POC GLUCOSE (11/22/2023 4:10 PM CDT) POC Glucose 176(H) 70 - 100 mg/dL [facility] POINT OF CARE Blood 11/22/2023 4:10 PM CDT Jessica Grullon MD LABORATORY [facility] POINT OF CARE [address] [place] [address], [place] * (ABNORMAL) POC GLUCOSE (11/22/2023 11:21 AM CDT) POC Glucose 201(H) 70 - 100 mg/dL [facility]ARE Blood 11/22/2023 11:2 1 AM CDT Jessica Grullon MD LABORATORY Performing Organization Address City/[facility]/ZIP Co de Phone Number [facility]ARE [address] [place] [phone], * (ABNORMAL) CYSTATIN C (11/22/2023 9:23 AM CDT) Cystatin C 1.43(H) 0.61 - 0.95 mg/L [facility] eGFR by Cystatin C 51(L) >=60 ml/min/1.7 3m2 [facility] Comment: Estimated GFR calculated using the CKD-EPI Cystatin C (2012) equation. Stage ? Description ?eGFR Range ??1.......Normal or increased eGFR.......90 or Greater ??2.......Mildly decreased eGFR..........60-89 ??3.......Moderately decreased eGFR......30-59 ??4.......Severely decreased eGFR........15-29 ??5.......Kidney Failure.................Less than 15 Blood 11/22/2023 9:23 AM CDT 11/22/2023 2:05 PM CDT Zac Churchill MD LABORATORY [facility] [address] [address] * (ABNORMAL) PANEL BASIC METABOLIC (BMP) (11/22/2023 9:23 AM CDT) Sodium 136 135 - 148 mmol/L [facility] Potassium 5.1 3.5 - 5.3 mmol/L [facility] Chloride 102 92 - 108 mmol/L [facility] CO2 24 22 - 30 mmol/L [facility] AnGap 10 8 - 16 mmol/L [facility] Glucose 254(H) 70 - 100 mg/dL [facility] BUN 20 6 - 20 mg/dL [facility] Creatinine 2.00(H) 0.70 - 1.25 mg/dL [facility] Calcium 8.6 8.6 - 10.0 mg/dL [facility] eGFR (2020 CKD-EPI) 41(L) >=60 ml/min/1.7 3m2 [facility] Comment: The estimated [...] Zac Churchill MD LABORATORY Performing Organization Address City/[facility]/ZIP Co de Phone Number [facility] [address] [address] * (ABNORMAL) CBC WITH PLATELET (11/22/2023 9:23 AM CDT) WBC 12.35(H) 4.00 - 10.00 k/cmm [facility] RBC 3.47(L) 4.60 - 6.00 m/cmm [facility] Hgb 9.8(L) 13.1 - 17.5 g/dL [facility] Hematocrit 30.8(L) 40.0 - 51.0 % [facility] MCV 88.8 80.0 - 100.0 fL [facility] MCH 28.2 25.0 - 32.0 pg [facility] MCHC 31.8 31.0 - 36.0 g/dL [facility] RDW 14.5 11.5 - 14.5 % [facility] Plt 530(H) 150 - 400 k/cmm [facility] MPV 9.3 6.5 - 12.5 fL [facility] Blood 11/22/2023 9:23 AM CDT 11/22/2023 10:28 AM CDT Zac Churchill MD LABORATORY Performing Organization Address City/[facility]/ZIP Co de Phone Number [facility] [address] [place] [address] * (ABNORMAL) POC GLUCOSE (11/22/2023 6:55 AM CDT) POC Glucose 136(H) 70 - 100 mg/dL [facility] POINT OF CARE Blood 11/22/2023 6:55 AM CDT Jessica Grullon MD LABORATORY [facility] POINT OF CARE [address] [place] [phone], [place] * (ABNORMAL) POC GLUCOSE (11/21/2023 8:38 PM CDT) POC Glucose 139(H) 70 - 100 mg/dL [facility] POINT OF [facility] Blood 11/21/2023 8:38 PM CDT Jessica Grullon MD LABORATORY Performing Organization Address City/[facility]/ZIP Co de Phone Number [facility] POINT [facility] [address] [place] [phone], [place] * (ABNORMAL) POC GLUCOSE (11/21/2023 4:13 PM CDT) POC Glucose 141(H) 70 - 100 mg/dL [facility] Blood 11/21/2023 4:13 PM CDT Jessica Grullon MD LABORATORY [facility] POINT OF CARE [address] [place] [phone], [place] * (ABNORMAL) POC GLUCOSE (11/21/2023 11:12 AM CDT) POC Glucose 177(H) 70 - 100 mg/dL [facility] POINT OF CARE Blood 11/21/2023 11:1 2 AM CDT Jessica Grullon MD LABORATORY Performing Organization Address City/[facility]/ZIP Co de Phone Number [facility] POINT OF CARE [address] [place] [address], * (ABNORMAL) POC GLUCOSE (11/21/2023 6:08 AM CDT) POC Glucose 131(H) 70 - 100 mg/dL [facility] POINT OF CARE Blood 11/21/2023 6:08 AM CDT Jessica Grullon MD LABORATORY Performing Organization Address [facility] Co de Phone Number [facility] POINT OF [facility] [address] [place] [address], [place] * (ABNORMAL) PANEL BASIC METABOLIC (BMP) (11/21/2023 4:52 AM CDT) CO2 27 22 - 30 mmol/L [facility] Glucose 128(H) 70 - 100 mg/dL [facility] BUN 21(H) 6 - 20 mg/dL [facility] Creatinine 2.07(H) 0.70 - 1.25 mg/dL [facility] Calcium 8.4(L) 8.6 - 10.0 mg/dL [facility] Sodium 138 135 - 148 mmol/L [facility] Potassium 4.8 3.5 - 5.3 mmol/L [facility] Chloride 103 92 - 108 mmol/L [facility] eGFR (2020 CKD-EPI) 40(L) >=60 ml/min/1.7 3m2 [facility] Comment: The estimated glomerular filtration rate (eGFR) was calculated using the CKD-EPI 2020 creatinine equation, which does not include race as a factor. This equation is validated in individuals 18 years of age and older, and eGFR is normalized to a body surface area of 1.73m^2. AnGap 8 8 - 16 mmol/L [facility] Blood 11/21/2023 4:52 AM CDT 11/21/2023 5:27 AM CDT Zac Churchill MD LABORATORY [facility] [address] [address] * (ABNORMAL) CBC WITH PLATELET (11/21/2023 4:52 AM CDT) Pathologist [facility] WBC 11.48(H) 4.00 - 10.00 k/cmm [facility] RBC 3.21(L) 4.60 - 6.00 m/cmm [facility] Hgb 9.0(L) 13.1 - 17.5 g/dL [facility] Hematocrit 28.7(L) 40.0 - 51.0 % [facility] MCV 89.4 80.0 - 100.0 fL [facility] MCH 28.0 25.0 - 32.0 pg [facility] MCHC 31.4 31.0 - 36.0 g/dL [facility] RDW 14.6(H) 11.5 - 14.5 % [facility] Plt 510(H) 150 - 400 k/cmm [facility] MPV 9.1 6.5 - 12.5 fL [facility] Blood 11/21/2023 4:52 AM CDT 11/21/2023 5:27 AM CDT Zac Churhcill MD LABORATORY [address] [address] * (ABNORMAL) POC GLUCOSE (11/20/2023 9:13 PM CDT) [facility] POC Glucose 153(H) 70 - 100 mg/dL [facility] POINT OF CARE Blood 11/20/2023 9:13 PM CDT Jessica Grullon MD LABORATORY [facility] POINT OF CARE [address] [place] [phone] [place] [address] * (ABNORMAL) POC GLUCOSE (11/20/2023 3:52 PM CDT) Pathologist [facility] POC Glucose 129(H) 70 - 100 mg/dL [facility] POINT OF CARE Blood 11/20/2023 3:52 PM CDT Jessica Grullon MD LABORATORY Performing Organization Address City/[facility]/ZIP Co de Phone Number [facility] POINT [facility] [address] [place] [phone], * (ABNORMAL) POC GLUCOSE (11/20/2023 11:16 AM CDT) POC Glucose 165(H) 70 - 100 mg/dL [facility] POINT OF [facility] Blood 11/20/2023 11:1 6 AM CDT Jessica Grullon MD LABORATORY Performing Organization Address [facility] de Phone Number [facility] [address] [place] [phone], [place] * (ABNORMAL) PANEL BASIC METABOLIC (BMP) (11/20/2023 8:18 AM CDT) Pathologist [facility] Sodium 140 135 - 148 mmol/L [facility] Potassium 4.9 3.5 - 5.3 mmol/L [facility] Chloride 105 92 - 108 mmol/L [facility] CO2 26 22 - 30 mmol/L [facility] AnGap 9 8 - 16 mmol/L [facility] Glucose 147(H) 70 - 100 mg/dL [facility] BUN 21(H) 6 - 20 mg/dL [facility] Creatinine 2.02(H) 0.70 - 1.25 mg/dL [facility] Calcium 8.4(L) 8.6 - 10.0 mg/dL [facility] eGFR (2020 CKD-EPI) 41(L) >=60 ml/min/1.7 3m2 [facility] Comment: The estimated [...] AM CDT 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 APRN, CNP LABORATORY [facility] [address] [place] [phone] * (ABNORMAL) CBC WITH PLTS/AUTO DIFF (11/20/2023 8:18 AM CDT) WBC 10.90(H) 4.00 - 10.00 k/cmm [facility] RBC 3.17(L) 4.60 - 6.00 m/cmm [facility] Hgb 9.0(L) 13.1 - 17.5 g/dL [facility] Hematocrit 28.3(L) 40.0 - 51.0 % [facility] MCV 89.3 80.0 - 100.0 fL [facility] MCH 28.4 25.0 - 32.0 pg [facility] MCHC 31.8 31.0 - 36.0 g/dL [facility] RDW 14.3 11.5 - 14.5 % [facility] Plt 492(H) 150 - 400 k/cmm [facility] MPV 9.2 6.5 - 12.5 fL [facility] Automated Abs Neutrophil 6.51(H) 1.70 - 6.50 k/cmm [facility] Comment:Preliminary ANC, Fin al Result to Follow Abs Immature Granulocyte 0.57(H) 0.00 - 0.09 k/cmm [facility] Comment:The Immature Granulo cyte Absolute count contains metamyelocytes and myelocytes. Abs Neutrophil 6.51(H) 1.70 - 6.50 k/cmm [facility] Abs Lymphocyte 2.07 0.80 - 4.00 k/cmm [facility] Abs Monocyte 1.27(H) 0.20 - 1.00 k/cmm [facility] Abs Eosinophil 0.45 0.00 - 0.60 k/cmm [facility] Abs Basophil 0.03 0.00 - 0.20 k/cmm [facility] Blood 11/20/2023 8:18 AM CDT 11/20/2023 8:40 AM CDT 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 APRN, CNP LABORATORY [facility] [address] [place] [address] * (ABNORMAL) POC GLUCOSE (11/20/2023 8:08 AM CDT) POC Glucose 133(H) 70 - 100 mg/dL [facility] POINT OF CARE Blood 11/20/2023 8:08 AM CDT Jessica Grullon MD LABORATORY [facility] POINT OF CARE [address] [place] [phone], [place] * (ABNORMAL) POC GLUCOSE (11/20/2023 6:30 AM CDT) POC Glucose 153(H) 70 - 100 mg/dL [facility] POINT OF CARE Blood 11/20/2023 6:30 AM CDT Jessica Grullon MD LABORATORY Performing Organization Address City/[facility] Co de Phone Number [facility] POINT OF [facility] [address] [place] [address], [place] * (ABNORMAL) POC GLUCOSE (11/19/2023 9:03 PM CDT) POC Glucose 148(H) 70 - 100 mg/dL [facility] POINT OF CARE Blood 11/19/2023 9:03 PM CDT Jessica Grullon MD LABORATORY [facility] POINT OF CARE [address] [place] [address], [place] * (ABNORMAL) POC GLUCOSE (11/19/2023 3:55 PM CDT) POC Glucose 126(H) 70 - 100 mg/dL [facility] POINT OF CARE Blood 11/19/2023 3:55 PM CDT Jessica Grullon MD LABORATORY Performing Organization Address City/[facility]/ZIP Co de Phone Number [facility] POINT OF CARE [address] [place] [phone], [place] * (ABNORMAL) POC GLUCOSE (11/19/2023 12:03 PM CDT) POC Glucose 147(H) 70 - 100 mg/dL [facility] POINT OF CARE Blood 11/19/2023 12:0 3 PM CDT Jessica Grullon MD LABORATORY Performing Organization Address City/[facility] Co de Phone Number [facility] [address] [place] [phone], [place] * (ABNORMAL) POC GLUCOSE (11/19/2023 11:07 AM CDT) POC Glucose 159(H) 70 - 100 mg/dL [facility] POINT [facility] Blood 11/19/2023 11:0 7 AM CDT Jessica Grullon MD LABORATORY Performing Organization Address [facility] Co de Phone Number [facility] [address] [place] [phone], [place] * (ABNORMAL) POC GLUCOSE (11/19/2023 8:51 AM CDT) POC Glucose 185(H) 70 - 100 mg/dL [facility] PO[facility] Blood 11/19/2023 8:51 AM CDT Jessica Grullon MD LABORATORY Performing Organization Address City/[facility]/ZIP Co de Phone Number [facility] [address] [place] [phone], [place] * (ABNORMAL) PANEL BASIC METABOLIC (BMP) (11/19/2023 7:58 AM CDT) CO2 24 22 - 30 mmol/L [facility] Glucose 221(H) 70 - 100 mg/dL [facility] BUN 25(H) 6 - 20 mg/dL [facility] Creatinine 2.19(H) 0.70 - 1.25 mg/dL [facility] Calcium 7.8(L) 8.6 - 10.0 mg/dL [facility] Sodium 138 135 - 148 mmol/L [facility] Potassium 4.7 3.5 - 5.3 mmol/L [facility] Chloride 104 92 - 108 mmol/L [facility] eGFR (2020 CKD-EPI) 37(L) >=60 ml/min/1.7 3m2 [facility] Comment: The estimated glomerular filtration rate (eGFR) was calculated using the CKD-EPI 2020 creatinine equation, which does not include race as a factor. This equation is validated in individuals 18 years of age and older, and eGFR is normalized to a body surface area of 1.73m^2. AnGap 10 8 - 16 mmol/L [facility] Blood 11/19/2023 7:58 AM CDT 11/19/2023 8:34 AM CDT 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 APRN, CNP LABORATORY [facility] [address] [place] [phone] * (ABNORMAL) CBC WITH PLTS/AUTO DIFF (11/19/2023 7:58 AM CDT) WBC 10.66(H) 4.00 - 10.00 k/cmm [facility] RBC 3.14(L) 4.60 - 6.00 m/cmm [facility] Hgb 9.0(L) 13.1 - 17.5 g/dL [facility] Hematocrit 27.7(L) 40.0 - 51.0 % [facility] MCV 88.2 80.0 - 100.0 fL [facility] MCH 28.7 25.0 - 32.0 pg [facility] MCHC 32.5 31.0 - 36.0 g/dL [facility] RDW 14.3 11.5 - 14.5 % [facility] Plt 482(H) 150 - 400 k/cmm [facility] MPV 9.2 6.5 - 12.5 fL [facility] Automated Abs Neutrophil 6.41 1.70 - 6.50 k/cmm [facility] Comment:Preliminary ANC, Fin al Result to Follow Polychromasia Slight [facility] Abs Neutrophil 8.10(H) 1.70 - 6.50 k/cmm [facility] Abs Lymphocyte 1.07 0.80 - 4.00 k/cmm [facility] Abs Monocyte 0.85 0.20 - 1.00 k/cmm [facility] Abs Eosinophil 0.32 0.00 - 0.60 k/cmm [facility] Abs Basophil 0.11 0.00 - 0.20 k/cmm [facility] Abs Myelocyte 0.21(H) 0.00 - 0.00 k/cmm [facility] Blood 11/19/2023 7:58 AM CDT 11/19/2023 8:34 AM CDT 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 APRN, CNP LABORATORY Performing Organization Address [facility] de Phone Number [facility] [place] [address] * (ABNORMAL) POC GLUCOSE (11/19/2023 6:37 AM CDT) POC Glucose 212(H) 70 - 100 mg/dL [facility] POINT OF CARE Blood 11/19/2023 6:37 AM CDT Jessica Grullon MD LABORATORY Performing Organization Address [facility] de Phone Number [facility] POINT OF CARE [address] [place] [phone], [place] * POC GLUCOSE (11/18/2023 8:54 PM CDT) POC Glucose 99 70 - 100 mg/dL [facility] POINT OF CARE Blood 11/18/2023 8:54 PM CDT Jessica Grullon MD LABORATORY Performing Organization Address [facility] Co de Phone Number [facility] POINT OF CARE [address] [place] [phone], [place] * (ABNORMAL) POC GLUCOSE (11/18/2023 8:20 PM CDT) POC Glucose 69(L) 70 - 100 mg/dL [facility] POINT OF [facility] Blood 11/18/2023 8:20 PM CDT Jessica Grullon MD LABORATORY Performing Organization Address [facility] Co de Phone Number [facility] [address] [place] [phone], [place] * (ABNORMAL) POC GLUCOSE (11/18/2023 4:37 PM CDT) [facility] POC Glucose 154(H) 70 - 100 mg/dL [facility] Blood 11/18/2023 4:37 PM CDT Jessica Grullon MD LABORATORY Performing Organization Address [facility] Co de Phone Number [facility] [address] [place] [address], [place] * (ABNORMAL) POC GLUCOSE (11/18/2023 11:03 AM CDT) [facility] POC Glucose 158(H) 70 - 100 mg/dL [facility] Blood 11/18/2023 11:0 3 AM CDT Jessica Grullon MD LABORATORY Performing Organization Address [facility] Co de Phone Number [facility] [address] [place] [phone], [place] * (ABNORMAL) PANEL BASIC METABOLIC (BMP) (11/18/2023 9:02 AM CDT) CO2 24 22 - 30 mmol/L [facility] Glucose 180(H) 70 - 100 mg/dL [facility] BUN 27(H) 6 - 20 mg/dL [facility] Creatinine 2.17(H) 0.70 - 1.25 mg/dL [facility] Calcium 8.2(L) 8.6 - 10.0 mg/dL [facility] Sodium 137 135 - 148 mmol/L [facility] Potassium 4.5 3.5 - 5.3 mmol/L [facility] Chloride 104 92 - 108 mmol/L [facility] eGFR (2020 CKD-EPI) 37(L) >=60 ml/min/1.7 3m2 [facility] Comment: The estimated glomerular filtration rate (eGFR) was calculated using the CKD-EPI 2020 creatinine equation, which does not include race as a factor. This equation is validated in individuals 18 years of age and older, and eGFR is normalized to a body surface area of 1.73m^2. AnGap 9 8 - 16 mmol/L [facility] Blood 11/18/2023 9:02 AM CDT 11/18/2023 9:21 AM CDT 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 APRN, CNP LABORATORY [facility] [address] [address] * (ABNORMAL) CBC WITH PLTS/AUTO DIFF (11/18/2023 9:02 AM CDT) WBC 10.61(H) 4.00 - 10.00 k/cmm [facility] RBC 3.36(L) 4.60 - 6.00 m/cmm [facility] Hgb 9.4(L) 13.1 - 17.5 g/dL [facility] Hematocrit 29.5(L) 40.0 - 51.0 % [facility] MCV 87.8 80.0 - 100.0 fL [facility] MCH 28.0 25.0 - 32.0 pg [facility] MCHC 31.9 31.0 - 36.0 g/dL [facility] RDW 14.2 11.5 - 14.5 % [facility] Plt 495(H) 150 - 400 k/cmm [facility] MPV 9.2 6.5 - 12.5 fL [facility] Automated Abs Neutrophil 6.34 1.70 - 6.50 k/cmm [facility] Comment:Preliminary ANC, Fin al Result to Follow NUC RBC 1.0(H) 0.0 - 0.0 /100WBC [facility] Polychromasia Slight [facility] Abs Neutrophil 7.32(H) 1.70 - 6.50 k/cmm [facility] Abs Lymphocyte 2.23 0.80 - 4.00 k/cmm [facility] Abs Monocyte 0.85 0.20 - 1.00 k/cmm [facility] Abs Eosinophil 0.21 0.00 - 0.60 k/cmm [facility] Blood 11/18/2023 9:02 AM CDT 11/18/2023 9:21 AM CDT 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 APRN, CNP LABORATORY Performing Organization Address City/[facility]/ZIP Co de Phone Number [facility] [place] [address] * (ABNORMAL) POC GLUCOSE (11/18/2023 6:21 AM CDT) POC Glucose 194(H) 70 - 100 mg/dL [facility] POINT OF CARE Blood 11/18/2023 6:21 AM CDT Jessica Grullon MD LABORATORY Performing Organization Address City/[facility] Co de Phone Number [facility] POINT OF [address] * (ABNORMAL) POC GLUCOSE (11/17/2023 8:19 PM CDT) POC Glucose 143(H) 70 - 100 mg/dL [facility] POINT OF CARE Blood 11/17/2023 8:19 PM CDT Jessica Grullon MD LABORATORY Performing Organization Address City/[facility]/ZIP Co de Phone Number [facility] POINT OF [address] * (ABNORMAL) POC GLUCOSE (11/17/2023 4:40 PM CDT) POC Glucose 235(H) 70 - 100 mg/dL [facility] POINT OF CARE Blood 11/17/2023 4:40 PM CDT Jessica Grullon MD LABORATORY [facility] - POINT OF CARE [address] [place] [address], [place] * (ABNORMAL) CBC WITH PLTS/AUTO DIFF (11/17/2023 2:35 PM CDT) WBC 11.70(H) 4.00 - 10.00 k/cmm [facility] RBC 3.37(L) 4.60 - 6.00 m/cmm [facility] Hgb 9.6(L) 13.1 - 17.5 g/dL [facility] Hematocrit 29.6(L) 40.0 - 51.0 % [facility] MCV 87.8 80.0 - 100.0 fL [facility] MCH 28.5 25.0 - 32.0 pg [facility] MCHC 32.4 31.0 - 36.0 g/dL [facility] RDW 14.2 11.5 - 14.5 % [facility] Plt 466(H) 150 - 400 k/cmm [facility] MPV 9.3 6.5 - 12.5 fL [facility] Automated Abs Neutrophil 7.44(H) 1.70 - 6.50 k/cmm [facility] Comment:Preliminary ANC, Fin al Result to Follow Abs Immature Granulocyte 0.52(H) 0.00 - 0.09 k/cmm [facility] Comment:The Immature Granulo cyte Absolute count contains metamyelocytes and myelocytes. Abs Neutrophil 7.44(H) 1.70 - 6.50 k/cmm [facility] Abs Lymphocyte 1.96 0.80 - 4.00 k/cmm [facility] Abs Monocyte 1.45(H) 0.20 - 1.00 k/cmm [facility] Abs Eosinophil 0.27 0.00 - 0.60 k/cmm [facility] Abs Basophil 0.06 0.00 - 0.20 k/cmm [facility] Polychromasia Slight [facility] Blood 11/17/2023 2:35 PM CDT 11/17/2023 2:57 PM CDT Scar Leyva MD LABORATORY Performing Organization Address [facility] Co de Phone Number [facility] [address] [address] * (ABNORMAL) PANEL BASIC METABOLIC (BMP) (11/17/2023 2:35 PM CDT) CO2 21(L) 22 - 30 mmol/L [facility] Glucose 252(H) 70 - 100 mg/dL [facility] BUN 30(H) 6 - 20 mg/dL [facility] Creatinine 2.27(H) 0.70 - 1.25 mg/dL [facility] Calcium 8.2(L) 8.6 - 10.0 mg/dL [facility] Sodium 137 135 - 148 mmol/L [facility] Potassium 4.3 3.5 - 5.3 mmol/L [facility] Chloride 104 92 - 108 mmol/L [facility] eGFR (2020 CKD-EPI) 35(L) >=60 ml/min/1.7 3m2 [facility] Comment: The estimated glomerular filtration rate (eGFR) was calculated using the CKD-EPI 2020 creatinine equation, which does not include race as a factor. This equation is validated in individuals 18 years of age and older, and eGFR is normalized to a body surface area of 1.73m^2. AnGap 12 8 - 16 mmol/L [facility] Blood 11/17/2023 2:35 PM CDT 11/17/2023 2:57 PM CDT Scar Leyva MD LABORATORY Performing Organization Address City/[facility]/ZIP Co de Phone Number [facility] [address] [address] * ANTI XA ASSAY LMW HEPARIN (11/17/2023 11:47 AM CDT) Anti XA LMW <0.04 IU/mL [facility] Comment: Anti Xa Assay LMW Heparin Therapeutic Ranges: 0.4-1.1 IU/mL for twice daily 1.0-2.0 IU/mL for once daily Blood 11/17/2023 11:4 7 AM CDT 11/17/2023 12:01 PM CDT Zac Churchill MD LABORATORY [facility] [address] [place] [address] * (ABNORMAL) POC GLUCOSE (11/17/2023 11:25 AM CDT) POC Glucose 190(H) 70 - 100 mg/dL [facility] POINT OF CARE Blood 11/17/2023 11:2 5 AM CDT Jessica Grullon MD LABORATORY Performing Organization Address City/[facility] Co de Phone Number [facility] - POINT OF CARE [address] [place] [address], * XR FOOT LEFT 3 V AP/OBL/LAT* [...] POC Glucose 176(H) 70 - 100 mg/dL [facility] - POINT OF CARE Blood 11/17/2023 10:0 1 AM CDT Jessica Grullon MD LABORATORY [facility] - POINT OF CARE [address] [place] [address], * (ABNORMAL) TISSUE CULTURE:INCLUDES GRAM STAIN (11/17/2023 9:35 AM CDT) Final Report Positive Culture Previous positive called. Rare METHICILLIN RESISTANT Staphylococcus aureus (MRSA) isolated. 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 One colony Staphylococcus lugdunensis isolated. (POS) [facility] Organism METHICILLIN RESISTANT STAPHYLOCOCCUS AUREUS (MRSA)(POS) [facility] Organism STAPHYLOCOCCUS LUGDUNENSIS(POS) [facility] Gram Stain Report Few WBC's seen. No organisms seen. Gram stain electronically reported to and acknowledged by: Che Palomo MD for Podiatric Surgery on 11/17/2023 11:56:22 by Silver Luna MLS [facility] Tissue TOE STRUCTURE [...] Vancomycin VITEK JORDY <=0.5: Sensitive Che Palomo [facility] MICROBIOLOGY Performing Organization Address [facility] Co de Phone Number [facility] [address] [address] * FUNGUS CULTURE:INCLUDES SUHAS (11/17/2023 9:35 AM CDT) Final Report No fungus isolated. [facility] SUHAS Prep No fungal elements seen. [facility] Tissue TOE STRUCTURE / Unknown 11/17/2023 9:35 AM CDT Che Brian Palomo [facility] MICROBIOLOGY Performing Organization Address [facility] Co de Phone Number [facility] [address] [address] * ANAEROBE CULTURE (11/17/2023 9:35 AM CDT) Final Report No anaerobes isolated. [facility] Tissue TOE STRUCTURE / Unknown 11/17/2023 9:35 AM CDT Che Palomo DPM LAB MICROBIOLOGY Performing Organization Address City/[facility] Co de Phone Number [facility] [address] [address] * AFB CULTURE:INCLUDES AFB SMEAR (11/17/2023 9:35 AM CDT) Final Report No acid fast bacilli isolated. [facility] Acid Fast Stain No acid fast bacilli seen. [facility] Tissue TOE STRUCTURE / Unknown 11/17/2023 9:35 AM CDT Che Palomo [facility] MICROBIOLOGY Performing Organization Address [facility] de Phone Number [facility] [address] [address] * M TUBERCULOSIS AMPLIFICATION (11/17/2023 9:32 AM CDT) Final Report M. tuberculosis complex DNA not detected. [facility] Tissue TOE STRUCTURE / Unknown 11/17/2023 9:32 AM CDT 11/18/2023 9:56 AM CDT Comment:1: Left hallux soft tissue dirty Narrative [facility] - 11/18/2023 2:41 PM CDT This assay uses PCR nucleic acid amplification to detect Mycobacterium tuberculosis complex DNA. ??This test was developed and its performance characteristics determined by [facility]. ??It has not been cleared or approved by the U.S. Food and Drug Administration. ??FDA does not require this test to go through premarket FDA review. ??This test is used for clinical purposes. ??It should not be regarded as investigational or for research. ??[facility] Clinical Laboratory is certified under the Clinical Laboratory Improvement Amendments of 1988 (CLIA) as qualified to perform high complexity clinical laboratory testing. Che Jonbitt [facility] MICROBIOLOGY Performing Organization Address [facility] de Phone Number [facility] [address] [address] * (ABNORMAL) TISSUE CULTURE:INCLUDES GRAM STAIN (11/17/2023 9:32 AM CDT) Final Report Positive Culture Rare METHICILLIN RESISTANT Staphylococcus aureus (MRSA) isolated. 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 Rare Group B beta hemolytic Streptococcus isolated. Pseudomonas aeruginosa isolated in broth only. Results electronically reported to and acknowledged by: Paula Vazquez MD, in Surgery [place], at ?? 11/23/2023 07:49:11 by Pam Alvarado MLS. (POS) [facility] Organism METHICILLIN RESISTANT STAPHYLOCOCCUS AUREUS (MRSA)(POS) [facility] Organism GROUP B BETA HEMOLYTIC STREPTOCOCCUS(POS) [facility] Organism PSEUDOMONAS AERUGINOSA(POS) [facility] Gram Stain Report Positive Gram stain Gram stain electronically reported to and acknowledged by: Che Zheng MD for Podiatric Surgery on 11/17/2023 11:55:10 by Silver Luna MLS Rare WBC's seen. Rare gram positive cocci clusters. (POS) [facility] Tissue TOE STRUCTURE [...] aeruginosa Tobramycin VITEK JORDY <=1: Sensitive Che Palomo [facility] MICROBIOLOGY [facility] [address] [place] [address] * FUNGUS CULTURE:INCLUDES SUHAS (11/17/2023 9:32 AM CDT) Final Report No fungus isolated. [facility] SUHAS Prep No fungal elements seen. [facility] Tissue TOE STRUCTURE / Unknown 11/17/2023 9:32 AM CDT Che Palomo DP LAB MICROBIOLOGY Performing Organization Address [facility] de Phone Number [facility] [address] [address] * (ABNORMAL) ANAEROBE CULTURE (11/17/2023 9:32 AM CDT) Final Report Positive Culture Rare Veillonella parvula group isolated. Rare Actinomyces europaeus isolated. (POS) [facility] Organism VEILLONELLA PARVULA GROUP(POS) [facility] Organism ACTINOMYCES EUROPAEUS(POS) [facility] Tissue TOE STRUCTURE / Unknown 11/17/2023 9:32 AM CDT Che Palomo DP LAB MICROBIOLOGY Performing Organization Address [facility] de Phone Number [facility] [address] [address] * AFB CULTURE:INCLUDES AFB SMEAR (11/17/2023 9:32 AM CDT) Final Report No acid fast bacilli isolated. [facility] Acid Fast Stain No acid fast bacilli seen. [facility] Tissue TOE STRUCTURE / Unknown 11/17/2023 9:32 AM CDT Che Palomo DP LAB MICROBIOLOGY Performing Organization Address [facility] de Phone Number [facility] [address] [address] * SURGICAL PATHOLOGY (11/17/2023 9:31 AM CDT) SURG PATH FINAL ?Surgical Pathology Report Collection Date: ?11/17/2023 09:31 CDT ?Ordering Physician: ? CHE PALOMO Received Date: ?11/17/2023 09:49 CDT ?Accession Number: ? [id number] ? Surgical Pathology Final Report Specimen Type: [...] 13:15 Clinical History: Clinical Diagnosis: Foot infection DDB/DDBeny 11.17.2023 10:26 Gross Description: The specimen is [...] underlying soft tissue with moderate osseous softening. Sticker Machine Operator sections are submitted on decalcification as follows: A1: Disarticulation margin, en face (decalcified) A2: Proximal soft tissue margin, en face A3: Ulcerated lesion A4: Bone underlying ulcerated lesion (DDB) DDB/DDB 11.17.2023 10:26 Microscopic Description: Microscopic examination performed and findings are reflected in the final diagnosis. I personally examined the relevant preparations and rendered and confirmed the diagnosis. ? Signed - Danielito Michael, M.D. Attending Pathologist. DDB/DDBeny 11.17.2023 10:26 [facility] AP Specimen FOOT STRUCTURE / Unknown 11/17/2023 9:31 AM CDT Comment:OR: Routine gross an d microscopic examination Tissue: Left Hallux Site: left foot Additional clinical information: Che Palomo DPM LAB PATHOLOGY Performing Organization Address [facility] Co de Phone Number [facility] [address] [address] * (ABNORMAL) POC GLUCOSE (11/17/2023 9:14 AM CDT) POC Glucose 169(H) 70 - 100 mg/dL [facility] POINT OF CARE Blood 11/17/2023 9:14 AM CDT Jessica Grullon MD LABORATORY Performing Organization Address [facility] de Phone Number [facility] POINT OF CARE [address] [place] [address], [place] * ULT ARTERIAL LOWER EXTREMITY LEFT (11/17/2023 [...] EXAM: Bilateral* Lower Extremity Arterial Doppler Ultrasound :26 AM INDICATION: ischemic toe . COMPARISON: None. [...] POC Glucose 205(H) 70 - 100 mg/dL [facility] - POINT OF CARE Blood 11/17/2023 6:07 AM CDT Jessica Grullon MD LABORATORY Performing Organization Address City/[facility]/ZIP Co de Phone Number [facility] POINT OF CARE [address] [place] [address], [place] * (ABNORMAL) POC GLUCOSE (11/16/2023 8:46 PM CDT) POC Glucose 141(H) 70 - 100 mg/dL [facility] - POINT OF CARE Blood 11/16/2023 8:46 PM CDT Jessica Grullon MD LABORATORY Performing Organization Address City/[facility] Co de Phone Number [facility] POINT OF [facility] [address] [place] [address], [place] * XR FOOT LEFT 3 V AP/OBL/LAT* (11/16/2023 7:20 PM CDT) Anatomical Region Laterality Modality Foot Computed Radiogr aphy 11/16/2023 8:04 PM CDT Impressions 11/16/2023 8:06 PM CDT Impression: Ulcerative changes associated with the first digit. Question subtle associated osseous changes of the first distal phalanx, raising the possibility for osteomyelitis. Reading Radiologist: Jacoby Dover 11/16/2023 8:06 PM CDT Exam: Left foot [...] POC Glucose 148(H) 70 - 100 mg/dL [facility] POINT OF CARE Blood 11/16/2023 4:14 PM CDT Jessica Grullon MD LABORATORY [facility] POINT OF CARE [address] [place] [address], [place] * (ABNORMAL) POC GLUCOSE (11/16/2023 10:55 AM CDT) POC Glucose 203(H) 70 - 100 mg/dL [facility] POINT OF CARE Blood 11/16/2023 10:5 5 AM CDT Jessica Grullon MD LABORATORY [facility] POINT OF CARE [address] [place] [address], [place] * (ABNORMAL) CBC WITH PLATELET (11/16/2023 8:45 AM CDT) WBC 13.08(H) 4.00 - 10.00 k/cmm [facility] RBC 3.38(L) 4.60 - 6.00 m/cmm [facility] Hgb 9.6(L) 13.1 - 17.5 g/dL [facility] Hematocrit 28.9(L) 40.0 - 51.0 % [facility] MCV 85.5 80.0 - 100.0 fL [facility] MCH 28.4 25.0 - 32.0 pg [facility] MCHC 33.2 31.0 - 36.0 g/dL [facility] RDW 13.4 11.5 - 14.5 % [facility] Plt 475(H) 150 - 400 k/cmm [facility] MPV 9.5 6.5 - 12.5 fL [facility] Blood 11/16/2023 8:45 AM CDT 11/16/2023 8:58 AM CDT 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 APRN, CNP LABORATORY [facility] [address] [address] * (ABNORMAL) PANEL BASIC METABOLIC (BMP) (11/16/2023 8:45 AM CDT) CO2 21(L) 22 - 30 mmol/L [facility] Glucose 261(H) 70 - 100 mg/dL [facility] BUN 35(H) 6 - 20 mg/dL [facility] Creatinine 2.67(H) 0.70 - 1.25 mg/dL [facility] Calcium 8.3(L) 8.6 - 10.0 mg/dL [facility] Sodium 139 135 - 148 mmol/L [facility] Potassium 4.4 3.5 - 5.3 mmol/L [facility] Chloride 106 92 - 108 mmol/L [facility] eGFR (2020 CKD-EPI) 29(L) >=60 ml/min/1.7 3m2 [facility] Comment: The estimated glomerular filtration rate (eGFR) was calculated using the CKD-EPI 2020 creatinine equation, which does not include race as a factor. This equation is validated in individuals 18 years of age and older, and eGFR is normalized to a body surface area of 1.73m^2. AnGap 12 8 - 16 mmol/L [facility] Blood 11/16/2023 8:45 AM CDT 11/16/2023 8:57 AM CDT 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 APRN, CNP LABORATORY [facility] [address] [place] [phone] * (ABNORMAL) POC GLUCOSE (11/16/2023 7:37 AM CDT) POC Glucose 180(H) 70 - 100 mg/dL [facility] POINT OF CARE Blood 11/16/2023 7:37 AM CDT Jessica Grullon MD LABORATORY Performing Organization Address City/[facility]/ZIP Co de Phone Number [address] [address], [place] * (ABNORMAL) POC GLUCOSE (11/15/2023 9:23 PM CDT) POC Glucose 144(H) 70 - 100 mg/dL [facility] Blood 11/15/2023 9:23 PM CDT Jessica Grullon MD LABORATORY Performing Organization Address City/[facility] Co de Phone Number [address] [address], [place] * (ABNORMAL) POC GLUCOSE (11/15/2023 4:18 PM CDT) POC Glucose 159(H) 70 - 100 mg/dL [facility] POINT OF [facility] Blood 11/15/2023 4:18 PM CDT Jessica Grullon MD LABORATORY [facility] POINT [address] [address], [place] * (ABNORMAL) POC GLUCOSE (11/15/2023 11:19 AM CDT) POC Glucose 221(H) 70 - 100 mg/dL [facility] POINT OF CARE Blood 11/15/2023 11:1 9 AM CDT Jessica Grullon MD LABORATORY Performing Organization Address [facility]/ZIP Co de Phone Number [facility] POINT OF CARE [address] [place] [phone], * (ABNORMAL) PANEL BASIC METABOLIC (BMP) (11/15/2023 7:39 AM CDT) CO2 21(L) 22 - 30 mmol/L [facility] Glucose 176(H) 70 - 100 mg/dL [facility] BUN 38(H) 6 - 20 mg/dL [facility] Creatinine 2.86(H) 0.70 - 1.25 mg/dL [facility] Calcium 7.6(L) 8.6 - 10.0 mg/dL [facility] Sodium 136 135 - 148 mmol/L [facility] Potassium 4.2 3.5 - 5.3 mmol/L [facility] Chloride 102 92 - 108 mmol/L [facility] eGFR (2020 CKD-EPI) 27(L) >=60 ml/min/1.7 3m2 [facility] Comment: The estimated glomerular filtration rate (eGFR) was calculated using the CKD-EPI 2020 creatinine equation, which does not include race as a factor. This equation is validated in individuals 18 years of age and older, and eGFR is normalized to a body surface area of 1.73m^2. AnGap 13 8 - 16 mmol/L [facility] Blood 11/15/2023 7:39 AM CDT 11/15/2023 7:58 AM CDT Shani Shaw MD LABORATORY Performing Organization Address City/[facility]/ZIP Co de Phone Number [facility] [address] [address] * (ABNORMAL) CREATININE, SERUM (11/15/2023 7:39 AM CDT) Creatinine 2.83(H) 0.70 - 1.25 mg/dL [facility] eGFR (2020 CKD-EPI) 27(L) >=60 ml/min/1.7 3m2 [facility] Comment: The estimated [...] Shani Shaw MD LABORATORY Performing Organization Address City/[facility]/ZIP Co de Phone Number [facility] [address] [address] * HEPATITIS C ANTIBODY WITH CONDITIONAL PCR (11/15/2023 7:39 AM CDT) Pathologist [facility] Hep C Lilly Nonreactive Nonreactive [facility] Comment:Performance characte ristics have not been established with this test on patients less than 10 years of age. Blood 11/15/2023 7:39 AM CDT 11/15/2023 7:58 AM CDT Zac Churchill MD LABORATORY Performing Organization Address City/[facility]/ZIP Co de Phone Number [facility] [address] [address] * HIV COMBO (11/15/2023 7:39 AM CDT) [facility] HIV Antigen-Antibody Nonreactive Nonreactive [facility] Comment:Performance characte ristics have not been established with this test on patients less than 2 years of age. Blood 11/15/2023 7:39 AM CDT 11/15/2023 7:58 AM CDT Zac Churchill MD LABORATORY [facility] [address] [address] * (ABNORMAL) POC GLUCOSE (11/15/2023 6:16 AM CDT) POC Glucose 154(H) 70 - 100 mg/dL [facility] POINT OF CARE Blood 11/15/2023 6:16 AM CDT Jessica Grullon MD LABORATORY Performing Organization Address [facility] Co de Phone Number [facility] POINT [facility] [address] [place] [address], [place] * (ABNORMAL) POC GLUCOSE (11/14/2023 8:34 PM CDT) POC Glucose 159(H) 70 - 100 mg/dL [facility] [facility] Blood 11/14/2023 8:34 PM CDT Jessica Grullon MD LABORATORY Performing Organization Address [facility] de Phone Number [facility] [address] [phone], [place] * (ABNORMAL) POC GLUCOSE (11/14/2023 4:36 PM CDT) Pathologist [facility] POC Glucose 182(H) 70 - 100 mg/dL [facility] POINT OF [facility] Blood 11/14/2023 4:36 PM CDT Jessica Grullon MD LABORATORY Performing Organization Address [facility] de Phone Number [facility] POINT [facility] [address] [place] [address], [place] * (ABNORMAL) PROTEIN TO CREAT RATIO,URINE (11/14/2023 9:58 AM CDT) TPU 22(H) 0 - 11 mg/dL [facility] Creat Urine 89 30 - 125 mg/dL [facility] Protein to Creat Ratio, Ur 0.25(H) 0.00 - 0.06 mg/mg [facility] Urine 11/14/2023 9:58 AM CDT 11/14/2023 10:06 AM CDT Zac Churchill MD LABORATORY Performing Organization Address [facility] Co de Phone Number [facility] [address] [address] * (ABNORMAL) URINALYSIS,TOTAL (11/14/2023 9:58 AM CDT) Color YELLOW YELLOW [facility] Appearance CLEAR CLEAR [facility] Urine Glucose 500(A) NEGATIVE mg/dL [facility] Bili UA NEGATIVE NEGATIVE [facility] Ketones NEGATIVE NEGATIVE [facility] Specific [place] 1.012 1.003 - 1.030 [facility] Blood Ur NEGATIVE Neg-Trace [facility] PH Urine 5.5 5.0 - 7.0 [facility] Protein Ur TRACE Neg-Trace [facility] Urobilinogen NORMAL NORMAL EU/dL [facility] Nitrite Ur NEGATIVE NEGATIVE [facility] Leuk Est NEGATIVE Neg-Trace [facility] WBC Ur 0-5 0 - 5 perHPF [facility] RBC Ur 0-3 0 - 3 perHPF [facility] Mucus 1+ perLPF [facility] Urinalysis Performed at: [facility] Urine 11/14/2023 9:58 AM CDT 11/14/2023 10:06 AM CDT Zac Churchill MD LABORATORY Performing Organization Address [facility] Co de Phone Number [facility] [address] [address] * (ABNORMAL) POC GLUCOSE (11/14/2023 6:14 AM CDT) [facility] POC Glucose 171(H) 70 - 100 mg/dL [facility] - POINT OF CARE Blood 11/14/2023 6:14 AM CDT Jessica Grullon MD LABORATORY Performing Organization Address City/[facility]/ZIP Co de Phone Number [facility] - POINT OF CARE [address] [place] [phone], * VANCOMYCIN LEVEL (11/14/2023 5:30 AM CDT) Pathologist [facility] Vancomycin 19.9 mcg/mL [facility] Comment:Expected Range (Trou gh): 10-20 mcg/ml Blood 11/14/2023 5:30 AM CDT 11/14/2023 5:56 AM CDT Zac Churchill MD LABORATORY [facility] [address] [address] * (ABNORMAL) CYSTATIN C (11/14/2023 5:30 AM CDT) Cystatin C 1.78(H) 0.61 - 0.95 mg/L [facility] eGFR by Cystatin C 38(L) >=60 ml/min/1.7 3m2 [facility] Comment: Estimated GFR calculated using the CKD-EPI Cystatin C (2012) equation. Stage ? Description ?eGFR Range ??1.......Normal or increased eGFR.......90 or Greater ??2.......Mildly decreased eGFR..........60-89 ??3.......Moderately decreased eGFR......30-59 ??4.......Severely decreased eGFR........15-29 ??5.......Kidney Failure.................Less than 15 Blood 11/14/2023 5:30 AM CDT 11/14/2023 5:56 AM CDT Zac Churchill MD LABORATORY [facility] [address] [address] * PHOSPHORUS (11/14/2023 5:30 AM CDT) Phosphorus 4.3 2.5 - 4.5 mg/dL [facility] Blood 11/14/2023 5:30 AM CDT 11/14/2023 5:56 AM CDT Zac Churchill MD LABORATORY Performing Organization Address [facility] Co de Phone Number [facility] [address] [address] * (ABNORMAL) PANEL BASIC METABOLIC (BMP) (11/14/2023 5:30 AM CDT) Sodium 136 135 - 148 mmol/L [facility] Potassium 4.1 3.5 - 5.3 mmol/L [facility] Chloride 103 92 - 108 mmol/L [facility] CO2 24 22 - 30 mmol/L [facility] AnGap 9 8 - 16 mmol/L [facility] Glucose 194(H) 70 - 100 mg/dL [facility] BUN 40(H) 6 - 20 mg/dL [facility] Creatinine 3.21(H) 0.70 - 1.25 mg/dL [facility] Calcium 8.2(L) 8.6 - 10.0 mg/dL [facility] eGFR (2020 CKD-EPI) 23(L) >=60 ml/min/1.7 3m2 [facility] Comment: The estimated [...] Zac Churchill MD LABORATORY Performing Organization Address City/[facility] Co de Phone Number [facility] [address] [address] * MAGNESIUM (11/14/2023 5:30 AM CDT) Magnesium 2.4 1.6 - 2.6 mg/dL [facility] Blood 11/14/2023 5:30 AM CDT 11/14/2023 5:56 AM CDT Zac Churchill MD LABORATORY [facility] [address] [address] * (ABNORMAL) CBC WITH PLATELET (11/14/2023 5:30 AM CDT) [facility] WBC 11.96(H) 4.00 - 10.00 k/cmm [facility] RBC 3.21(L) 4.60 - 6.00 m/cmm [facility] Hgb 9.1(L) 13.1 - 17.5 g/dL [facility] Hematocrit 28.5(L) 40.0 - 51.0 % [facility] MCV 88.8 80.0 - 100.0 fL [facility] MCH 28.3 25.0 - 32.0 pg [facility] MCHC 31.9 31.0 - 36.0 g/dL [facility] RDW 13.4 11.5 - 14.5 % [facility] Plt 372 150 - 400 k/cmm [facility] MPV 9.8 6.5 - 12.5 fL [facility] Blood 11/14/2023 5:30 AM CDT 11/14/2023 5:54 AM CDT Zac Churchill MD LABORATORY Performing Organization Address City/[facility]/ZIP Co de Phone Number [address] [address] * (ABNORMAL) POC GLUCOSE (11/13/2023 9:00 PM CDT) Pathologist [facility] POC Glucose 206(H) 70 - 100 mg/dL [facility] POINT OF CARE Blood 11/13/2023 9:00 PM CDT Jessica Grullon MD LABORATORY [facility] POINT OF CARE [address] [place] [address] * (ABNORMAL) POC GLUCOSE (11/13/2023 4:44 PM CDT) Pathologist [facility] POC Glucose 181(H) 70 - 100 mg/dL [facility] POINT OF CARE Blood 11/13/2023 4:44 PM CDT Jessica Grullon MD LABORATORY Performing Organization Address City/[facility] Co de Phone Number [facility] POINT OF [address] [address], [place] * (ABNORMAL) POC GLUCOSE (11/13/2023 10:56 AM CDT) POC Glucose 170(H) 70 - 100 mg/dL [facility] POINT OF [facility] Blood 11/13/2023 10:5 6 AM CDT Jessica Grullon MD LABORATORY Performing Organization Address [facility] Co de Phone Number [facility] POINT OF [address] [address], [place] * URINE CHLAMYDIA AND NEISSERIAE GONORRHOEAE AMPLIFICATION (11/13/2023 10:45 AM CDT) Pathologist [facility] Chlamydia Amplification - Urine Negative Negative [facility] Comment:Test performed by tr anscription mediated amplification and is FDA approved for genital and urine specimens. N. Gonorrhea Amplification - Urine Negative Negative [facility] Comment:Test performed by tr anscription mediated amplification and is FDA approved for genital and urine specimens. Urine 11/13/2023 10:4 5 AM CDT 11/13/2023 3:03 PM CDT Narrative [facility] - 11/15/2023 12:29 PM CDT For Urines, use first void. Zac Churchill MD LABORATORY Performing Organization Address City/[facility] Co de Phone Number [facility] [address] [address] * HEPATITIS B SURFACE ANTIGEN (11/13/2023 10:20 AM CDT) HBV Surface Ag Nonreactive Nonreactive [facility] Comment: Testing performed at: [facility] [address] [address] Blood 11/13/2023 10:2 0 AM CDT 11/13/2023 10:27 AM CDT Zac Churchill MD LABORATORY Performing Organization Address [facility] [place] [address] * HEPATITIS B SURFACE ANTIBODY (11/13/2023 10:20 AM CDT) [facility] HBsAb Quant <3.31 mIU/ml [facility] Comment:The Hepatitis B Surf gabriella Antibody quantitation is less than 8.00 mIU/mL. There is no evidence of an antibody response to a hepatitis B vaccination or recovery from a hepatitis B infection. This patient is presumed non-immune to hepatitis B. HBsAb Interpretation Nonreactive [facility] Blood 11/13/2023 10:2 0 AM CDT 11/13/2023 10:27 AM CDT Zac Churchill MD LABORATORY Performing Organization Address [facility] de Phone Number [facility] [address] [address] * (ABNORMAL) POC GLUCOSE (11/13/2023 6:08 AM CDT) [facility] POC Glucose 154(H) 70 - 100 mg/dL [facility] - POINT OF CARE Blood 11/13/2023 6:08 AM CDT Jessica Grullon MD LABORATORY Performing Organization Address [facility] de Phone Number [facility] POINT OF CARE [address] [place] [address] * (ABNORMAL) CYSTATIN C (11/13/2023 5:18 AM CDT) [facility] eGFR by Cystatin C 31(L) >=60 ml/min/1.7 3m2 [facility] Comment: Estimated GFR calculated using the CKD-EPI Cystatin C (2012) equation. Stage ? Description ?eGFR Range ??1.......Normal or increased eGFR.......90 or Greater ??2.......Mildly decreased eGFR..........60-89 ??3.......Moderately decreased eGFR......30-59 ??4.......Severely decreased eGFR........15-29 ??5.......Kidney Failure.................Less than 15 Cystatin C 2.11(H) 0.61 - 0.95 mg/L [facility] Blood 11/13/2023 5:18 AM CDT 11/13/2023 5:47 AM CDT Zac Churchill MD LABORATORY Performing Organization Address [facility] de Phone Number [facility] [address] [address] * VANCOMYCIN LEVEL (11/13/2023 5:18 AM CDT) Vancomycin 35.4 mcg/mL [facility] Comment:Expected Range (Trou gh): 10-20 mcg/ml Blood 11/13/2023 5:18 AM CDT 11/13/2023 5:47 AM CDT Zac Churchill MD LABORATORY Performing Organization Address [facility] de Phone Number [facility] [address] [address] * (ABNORMAL) PHOSPHORUS (11/13/2023 5:18 AM CDT) Phosphorus 5.2(H) 2.5 - 4.5 mg/dL [facility] Blood 11/13/2023 5:18 AM CDT 11/13/2023 5:47 AM CDT Zac Churchill MD LABORATORY Performing Organization Address [facility] Co de Phone Number [facility] [address] [address] * (ABNORMAL) PANEL BASIC METABOLIC (BMP) (11/13/2023 5:18 AM CDT) AnGap 12 8 - 16 mmol/L [facility] Sodium 137 135 - 148 mmol/L [facility] Chloride 103 92 - 108 mmol/L [facility] BUN 37(H) 6 - 20 mg/dL [facility] Calcium 7.8(L) 8.6 - 10.0 mg/dL [facility] CO2 22 22 - 30 mmol/L [facility] Glucose 168(H) 70 - 100 mg/dL [facility] Creatinine 3.04(H) 0.70 - 1.25 mg/dL [facility] Potassium 4.4 3.5 - 5.3 mmol/L [facility] eGFR (2020 CKD-EPI) 25(L) >=60 ml/min/1.7 3m2 [facility] Comment: The estimated [...] Zac Churchill MD LABORATORY Performing Organization Address City/[facility]/ZIP Co de Phone Number [facility] [address] [address] * MAGNESIUM (11/13/2023 5:18 AM CDT) Magnesium 2.3 1.6 - 2.6 mg/dL [facility] Blood 11/13/2023 5:18 AM CDT 11/13/2023 5:47 AM CDT Zac Churchill MD LABORATORY [facility] [address] [address] * (ABNORMAL) CBC WITH PLATELET (11/13/2023 5:18 AM CDT) [facility] WBC 13.27(H) 4.00 - 10.00 k/cmm [facility] RBC 3.28(L) 4.60 - 6.00 m/cmm [facility] Hgb 9.2(L) 13.1 - 17.5 g/dL [facility] Hematocrit 30.0(L) 40.0 - 51.0 % [facility] MCV 91.5 80.0 - 100.0 fL [facility] MCH 28.0 25.0 - 32.0 pg [facility] MCHC 30.7(L) 31.0 - 36.0 g/dL [facility] RDW 13.5 11.5 - 14.5 % [facility] Plt 317 150 - 400 k/cmm [facility] MPV 10.1 6.5 - 12.5 fL [facility] Blood 11/13/2023 5:18 AM CDT 11/13/2023 5:47 AM CDT Zac Churchill MD LABORATORY Performing Organization Address City/[facility]/ZIP Co de Phone Number [facility] [place] [address] * RPR SYPHILIS SCREEN (11/12/2023 11:10 PM CDT) [facility] RPR Screen Non-Reactive Non-Reacti ve [facility] RPR Titer Not Reflexed [facility] Blood 11/12/2023 11:1 0 PM CDT 11/12/2023 11:40 PM CDT Zac Churchill MD LABORATORY Performing Organization Address [facility]/ZIP Co de Phone Number [facility] [place] [address] * (ABNORMAL) POC GLUCOSE (11/12/2023 8:47 PM CDT) [facility] POC Glucose 196(H) 70 - 100 mg/dL [facility] - POINT OF CARE Blood 11/12/2023 8:47 PM CDT Jessica Grullon MD LABORATORY Performing Organization Address [facility] Co de Phone Number [facility] POINT OF CARE [address] [place] [phone] [place] [address] * (ABNORMAL) POC GLUCOSE (11/12/2023 4:41 PM CDT) [facility] POC Glucose 172(H) 70 - 100 mg/dL [facility] POINT OF CARE Blood 11/12/2023 4:41 PM CDT Jessica Grullon MD LABORATORY Performing Organization Address [facility] de Phone Number [facility] POINT OF CARE [address] [place] [address] * VANCOMYCIN LEVEL (11/12/2023 1:22 PM CDT) Pathologist [facility] Vancomycin 47.5 mcg/mL [facility] Comment:Expected Range (Trou gh): 10-20 mcg/ml Blood 11/12/2023 1:22 PM CDT 11/12/2023 1:34 PM CDT Narrative [facility] - 11/12/2023 2:28 PM CDT Peak or trough:->Trough Zac Churchill MD LABORATORY Performing Organization Address [facility] Co de Phone Number [facility] [address] [place] [phone] * (ABNORMAL) CYSTATIN C (11/12/2023 11:36 AM CDT) [facility] Cystatin C 2.20(H) 0.61 - 0.95 mg/L [facility] eGFR by Cystatin C 29(L) >=60 ml/min/1.7 3m2 [facility] Comment: Estimated GFR calculated using the CKD-EPI Cystatin C (2012) equation. Stage ? Description ?eGFR Range ??1.......Normal or increased eGFR.......90 or Greater ??2.......Mildly decreased eGFR..........60-89 ??3.......Moderately decreased eGFR......30-59 ??4.......Severely decreased eGFR........15-29 ??5.......Kidney Failure.................Less than 15 Blood 11/12/2023 11:3 6 AM CDT 11/12/2023 2:53 PM CDT Zac Churchill MD LABORATORY Performing Organization Address [facility] Co de Phone Number [facility] [place] [phone] * (ABNORMAL) PHOSPHORUS (11/12/2023 11:36 AM CDT) Phosphorus 5.8(H) 2.5 - 4.5 mg/dL [facility] Blood 11/12/2023 11:3 6 AM CDT 11/12/2023 11:49 AM CDT Zac Churchill MD LABORATORY Performing Organization Address [facility] de Phone Number [facility] [place] [phone] * (ABNORMAL) PANEL BASIC METABOLIC (BMP) (11/12/2023 11:36 AM CDT) Sodium 137 135 - 148 mmol/L [facility] Potassium 4.9 3.5 - 5.3 mmol/L [facility] Chloride 104 92 - 108 mmol/L [facility] CO2 23 22 - 30 mmol/L [facility] AnGap 10 8 - 16 mmol/L [facility] Glucose 160(H) 70 - 100 mg/dL [facility] BUN 29(H) 6 - 20 mg/dL [facility] Creatinine 2.24(H) 0.70 - 1.25 mg/dL [facility] Calcium 7.8(L) 8.6 - 10.0 mg/dL [facility] eGFR (2020 CKD-EPI) 36(L) >=60 ml/min/1.7 3m2 [facility] Comment: The estimated [...] Zac Churchill MD LABORATORY Performing Organization Address [facility] de Phone Number [facility] [address] [address] * MAGNESIUM (11/12/2023 11:36 AM CDT) Magnesium 2.3 1.6 - 2.6 mg/dL [facility] Blood 11/12/2023 11:3 6 AM CDT 11/12/2023 11:49 AM CDT Zac Churchill MD LABORATORY Performing Organization Address [facility] de Phone Number [facility] [address] [address] * (ABNORMAL) CBC WITH PLATELET (11/12/2023 11:36 AM CDT) WBC 17.87(H) 4.00 - 10.00 k/cmm [facility] RBC 3.40(L) 4.60 - 6.00 m/cmm [facility] Hgb 9.6(L) 13.1 - 17.5 g/dL [facility] Hematocrit 31.1(L) 40.0 - 51.0 % [facility] MCV 91.5 80.0 - 100.0 fL [facility] MCH 28.2 25.0 - 32.0 pg [facility] MCHC 30.9(L) 31.0 - 36.0 g/dL [facility] RDW 13.6 11.5 - 14.5 % [facility] Plt 287 150 - 400 k/cmm [facility] MPV 10.5 6.5 - 12.5 fL [facility] Blood 11/12/2023 11:3 6 AM CDT 11/12/2023 11:48 AM CDT Zac Churchill MD LABORATORY [facility] [address] [place] [phone] * (ABNORMAL) POC GLUCOSE (11/12/2023 11:05 AM CDT) POC Glucose 147(H) 70 - 100 mg/dL [facility] POINT OF CARE Blood 11/12/2023 11:0 5 AM CDT Jessica Grullon MD LABORATORY Performing Organization Address City/[facility]/ZIP Co [place] [address], [place] * (ABNORMAL) POC GLUCOSE (11/12/2023 10:09 AM CDT) POC Glucose 163(H) 70 - 100 mg/dL [facility] Blood 11/12/2023 10:0 9 AM CDT Jessica Grullon MD LABORATORY Performing Organization Address City/[facility] Co de Phone Number [place] [phone], [place] * (ABNORMAL) POC GLUCOSE (11/12/2023 9:04 AM CDT) POC Glucose 146(H) 70 - 100 mg/dL [facility] POINT OF [facility] Blood 11/12/2023 9:04 AM CDT Jessica Grullon MD LABORATORY Performing Organization Address City/[facility]/ZIP Co de Phone Number [facility] [address] [place], [place] [id number], [place] * (ABNORMAL) POC GLUCOSE (11/12/2023 8:01 AM CDT) POC Glucose 152(H) 70 - 100 mg/dL [facility] POINT OF CARE Blood 11/12/2023 8:01 AM CDT Jessica Grullon MD LABORATORY [facility] POINT OF CARE [address] [place] [address], [place] * (ABNORMAL) POC GLUCOSE (11/12/2023 7:00 AM CDT) POC Glucose 147(H) 70 - 100 mg/dL [facility] POINT OF CARE Blood 11/12/2023 7:00 AM CDT Jessica Grullon MD LABORATORY Performing Organization Address City/[facility] Co de Phone Number [facility] POINT [facility] [address] [place] [address], [place] * (ABNORMAL) POC GLUCOSE (11/12/2023 6:02 AM CDT) POC Glucose 169(H) 70 - 100 mg/dL [facility] POINT OF CARE Blood 11/12/2023 6:02 AM CDT Jessiac Grullon MD LABORATORY Performing Organization Address City/[facility]/ZIP Co de Phone Number [facility] POINT OF [facility] [address] [place] [address], [place] * (ABNORMAL) POC GLUCOSE (11/12/2023 5:00 AM CDT) POC Glucose 166(H) 70 - 100 mg/dL [facility] POINT OF CARE Blood 11/12/2023 5:00 AM CDT Jessica Grullon MD LABORATORY Performing Organization Address City/[facility]/ZIP Co de Phone Number [facility] POINT OF CARE [address] [place] [address], [place] * (ABNORMAL) POC GLUCOSE (11/12/2023 4:02 AM CDT) POC Glucose 178(H) 70 - 100 mg/dL [facility] POINT OF CARE Blood 11/12/2023 4:02 AM CDT Jessica Grullon MD LABORATORY Performing Organization Address City/[facility] Co de Phone Number [facility] [address] [place], [place] [id number], [place] * (ABNORMAL) POC GLUCOSE (11/12/2023 3:17 AM CDT) POC Glucose 176(H) 70 - 100 mg/dL [facility] POINT OF [facility] Blood 11/12/2023 3:17 AM CDT Jessica Grullon MD LABORATORY Performing Organization Address City/[facility] Co de Phone Number [facility] [address] [phone], [place] * (ABNORMAL) POC GLUCOSE (11/12/2023 2:14 AM CDT) POC Glucose 197(H) 70 - 100 mg/dL [facility] Blood 11/12/2023 2:14 AM CDT Jessica Grullon MD LABORATORY Performing Organization Address City/[facility] Co de Phone Number [facility] POINT OF [facility] [address] [place] [address], [place] * (ABNORMAL) POC GLUCOSE (11/12/2023 1:02 AM CDT) POC Glucose 195(H) 70 - 100 mg/dL [facility] Blood 11/12/2023 1:02 AM CDT Jessica Grullon MD LABORATORY Performing Organization Address City/[facility] Co de Phone Number [facility] [address] [place] [address], [place] * (ABNORMAL) POC GLUCOSE (11/12/2023 12:01 AM CDT) POC Glucose 180(H) 70 - 100 mg/dL [facility] POINT OF [facility] Blood 11/12/2023 12:0 1 AM CDT Jessica Grullon MD LABORATORY Performing Organization Address City/[facility] Co de Phone Number [facility] CARE [address] [place] [address], [place] * (ABNORMAL) POC GLUCOSE (11/11/2023 11:01 PM CDT) POC Glucose 185(H) 70 - 100 mg/dL [facility] Blood 11/11/2023 11:0 1 PM CDT Jessica Grullon MD LABORATORY Performing Organization Address City/[facility] Co de Phone Number [facility] [address] [place] [address], [place] * (ABNORMAL) POC GLUCOSE (11/11/2023 10:00 PM CDT) POC Glucose 167(H) 70 - 100 mg/dL [facility] POINT OF [facility] Blood 11/11/2023 10:0 0 PM CDT Jessica Grullon MD LABORATORY Performing Organization Address City/[facility] Co de Phone Number [facility] [address] [place] [address], [place] * (ABNORMAL) POC GLUCOSE (11/11/2023 9:01 PM CDT) POC Glucose 148(H) 70 - 100 mg/dL [facility] POINT OF [facility] Blood 11/11/2023 9:01 PM CDT Jessica Grullon MD LABORATORY Performing Organization Address City/[facility]/ZIP Co de Phone Number [facility] POINT OF CARE [address] [place] [address], * (ABNORMAL) POC GLUCOSE (11/11/2023 8:02 PM CDT) POC Glucose 167(H) 70 - 100 mg/dL [facility] POINT OF CARE Blood 11/11/2023 8:02 PM CDT Jessica Grullon MD LABORATORY Performing Organization Address [facility] Co de Phone Number [facility] POINT OF CARE [address] [place] [address], * (ABNORMAL) POC GLUCOSE (11/11/2023 7:02 PM CDT) Pathologist [facility] POC Glucose 180(H) 70 - 100 mg/dL [facility] POINT OF [facility] Blood 11/11/2023 7:02 PM CDT Jessica Grullon MD LABORATORY Performing Organization Address [facility] Co de Phone Number [facility] [address] [place] [address], [place] * (ABNORMAL) PANEL BASIC METABOLIC (BMP) (11/11/2023 6:42 PM CDT) Pathologist [facility] Sodium 138 135 - 148 mmol/L [facility] Potassium 4.3 3.5 - 5.3 mmol/L [facility] Chloride 103 92 - 108 mmol/L [facility] CO2 25 22 - 30 mmol/L [facility] AnGap 10 8 - 16 mmol/L [facility] Glucose 181(H) 70 - 100 mg/dL [facility] BUN 21(H) 6 - 20 mg/dL [facility] Creatinine 1.03 0.70 - 1.25 mg/dL [facility] Calcium 8.0(L) 8.6 - 10.0 mg/dL [facility] eGFR (2020 CKD-EPI) 91 >=60 ml/min/1.7 3m2 [facility] Comment: The estimated [...] Zac Churchill MD LABORATORY Performing Organization Address City/[facility] [place] [address] * (ABNORMAL) POC GLUCOSE (11/11/2023 6:05 PM CDT) POC Glucose 173(H) 70 - 100 mg/dL [facility] POINT OF [facility] Blood 11/11/2023 6:05 PM CDT Jessica Grullon MD LABORATORY Performing Organization Address [facility] Co de Phone Number [facility] POINT OF [address] * (ABNORMAL) POC GLUCOSE (11/11/2023 5:01 PM CDT) POC Glucose 163(H) 70 - 100 mg/dL [facility] Blood 11/11/2023 5:01 PM CDT Jessica Grullon MD LABORATORY Performing Organization Address [facility] Co de Phone Number [facility] [place] [address], * (ABNORMAL) POC GLUCOSE (11/11/2023 3:47 PM CDT) POC Glucose 138(H) 70 - 100 mg/dL [facility] POINT OF [facility] Blood 11/11/2023 3:47 PM CDT Jessica Grullon MD LABORATORY Performing Organization Address City/[facility]/ZIP Co de Phone Number [facility] POINT OF CARE [address] [place] [address], [place] * (ABNORMAL) POC GLUCOSE (11/11/2023 3:00 PM CDT) POC Glucose 147(H) 70 - 100 mg/dL [facility] POINT OF CARE Blood 11/11/2023 3:00 PM CDT Jessica Grullon MD LABORATORY Performing Organization Address [facility] Co de Phone Number [facility] POINT OF CARE [address] [place] [address], [place] * (ABNORMAL) POC GLUCOSE (11/11/2023 2:12 PM CDT) POC Glucose 147(H) 70 - 100 mg/dL [facility] POINT OF CARE Blood 11/11/2023 2:12 PM CDT Jessica Grullon MD LABORATORY Performing Organization Address [facility] Co de Phone Number [facility] POINT [facility] [address] [place] [address], [place] * (ABNORMAL) POC GLUCOSE (11/11/2023 1:02 PM CDT) POC Glucose 126(H) 70 - 100 mg/dL [facility] POINT OF CARE Blood 11/11/2023 1:02 PM CDT Jessica Grullon MD LABORATORY Performing Organization Address [facility] Co de Phone Number [facility] POINT OF [facility] [address] [place] [address], [place] * (ABNORMAL) POC GLUCOSE (11/11/2023 12:01 PM CDT) POC Glucose 141(H) 70 - 100 mg/dL [facility] POINT OF CARE Blood 11/11/2023 12:0 1 PM CDT Jessica Grullon MD LABORATORY [facility] OF CARE [address] [place] [address], [place] * (ABNORMAL) POC GLUCOSE (11/11/2023 11:03 AM CDT) POC Glucose 163(H) 70 - 100 mg/dL [facility] POINT OF CARE Blood 11/11/2023 11:0 3 AM CDT Jessica Grullon MD LABORATORY Performing Organization Address City/[facility]/ZIP Co de Phone Number [facility] [address] [place] [address], [place] * (ABNORMAL) POC GLUCOSE (11/11/2023 9:59 AM CDT) POC Glucose 170(H) 70 - 100 mg/dL [facility] POINT OF [facility] Blood 11/11/2023 9:59 AM CDT Jessica Grullon MD LABORATORY Performing Organization Address City/[facility] Co de Phone Number [facility] [address] [place] [address], [place] * (ABNORMAL) POC GLUCOSE (11/11/2023 8:56 AM CDT) POC Glucose 166(H) 70 - 100 mg/dL [facility] POINT OF CARE Blood 11/11/2023 8:56 AM CDT Jessica Grullon MD LABORATORY Performing Organization Address City/[facility]/ZIP Co de Phone Number [facility] POINT OF [facility] [address] [place] [address], [place] * (ABNORMAL) POC GLUCOSE (11/11/2023 8:01 AM CDT) POC Glucose 172(H) 70 - 100 mg/dL [facility] - POINT OF CARE Blood 11/11/2023 8:01 AM CDT Jessica Grullon MD LABORATORY Performing Organization Address City/[facility]/ZIP Co de Phone Number [facility] - POINT OF CARE [address] [place] [address], [place] * ICU PHOSPHORUS (11/11/2023 5:36 AM CDT) Phosphorus 2.9 2.5 - 4.5 mg/dL [facility] Blood 11/11/2023 5:36 AM CDT 11/11/2023 5:45 AM CDT Zac Churchill MD LABORATORY Performing Organization Address City/[facility] Co de Phone Number [facility] [address] [address] * (ABNORMAL) ICU MAGNESIUM (11/11/2023 5:36 AM CDT) [facility] Magnesium 1.2(L) 1.6 - 2.6 mg/dL [facility] Blood 11/11/2023 5:36 AM CDT 11/11/2023 5:45 AM CDT Zac Churchill MD LABORATORY Performing Organization Address [facility] Co de Phone Number [facility] [address] [address] * (ABNORMAL) ICU CBC WITH PLTS/AUTO DIFF (11/11/2023 5:36 AM CDT) WBC 17.41(H) 4.00 - 10.00 k/cmm [facility] RBC 2.72(L) 4.60 - 6.00 m/cmm [facility] Hgb 7.8(L) 13.1 - 17.5 g/dL [facility] Hematocrit 24.1(L) 40.0 - 51.0 % [facility] MCV 88.6 80.0 - 100.0 fL [facility] MCH 28.7 25.0 - 32.0 pg [facility] MCHC 32.4 31.0 - 36.0 g/dL [facility] RDW 13.2 11.5 - 14.5 % [facility] Plt 203 150 - 400 k/cmm [facility] MPV 10.1 6.5 - 12.5 fL [facility] Automated Abs Neutrophil 13.29(H) 1.70 - 6.50 k/cmm [facility] Comment:Preliminary ANC, Fin al Result to Follow Judy Cell Slight [facility] Toxic Gran Present [facility] Toxic Vac Present [facility] Abs Neutrophil 13.41(H) 1.70 - 6.50 k/cmm [facility] Abs Lymphocyte 2.96 0.80 - 4.00 k/cmm [facility] Abs Monocyte 0.87 0.20 - 1.00 k/cmm [facility] Abs Basophil 0.17 0.00 - 0.20 k/cmm [facility] Blood 11/11/2023 5:36 AM CDT 11/11/2023 5:45 AM CDT Zac Churchill MD LABORATORY [facility] [place] [address] * (ABNORMAL) ICU PANEL BASIC METABOLIC (BMP) (11/11/2023 5:36 AM CDT) AnGap 9 8 - 16 mmol/L [facility] BUN 15 6 - 20 mg/dL [facility] Calcium 6.0(AA) 8.6 - 10.0 mg/dL [facility] Comment:Critical Result Low Chloride 108 92 - 108 mmol/L [facility] CO2 22 22 - 30 mmol/L [facility] Glucose 135(H) 70 - 100 mg/dL [facility] Creatinine 0.93 0.70 - 1.25 mg/dL [facility] Potassium 3.2(L) 3.5 - 5.3 mmol/L [facility] eGFR (2020 CKD-EPI) 103 >=60 ml/min/1.7 3m2 [facility] Comment: The estimated glomerular filtration rate (eGFR) was calculated using the CKD-EPI 2020 creatinine equation, which does not include race as a factor. This equation is validated in individuals 18 years of age and older, and eGFR is normalized to a body surface area of 1.73m^2. Sodium 139 135 - 148 mmol/L [facility] Blood 11/11/2023 5:36 AM CDT 11/11/2023 5:45 AM CDT Narrative [facility] - 11/11/2023 6:25 AM CDT Critical value for Calcium called to and read back by Sheila Dias RN in STN4 at 11/11/2023 06:24:12 CDT by Larry Fuchs MLS. Zac Churchill MD LABORATORY [facility] [place] [address] * (ABNORMAL) POC GLUCOSE (11/11/2023 5:28 AM CDT) POC Glucose 149(H) 70 - 100 mg/dL [facility] POINT OF CARE Blood 11/11/2023 5:28 AM CDT Jessica Grullon MD LABORATORY Performing Organization Address City/[facility]/ZIP Co de Phone Number [facility] POINT OF [address] * (ABNORMAL) POC GLUCOSE (11/11/2023 4:29 AM CDT) POC Glucose 159(H) 70 - 100 mg/dL [facility] POINT OF CARE Blood 11/11/2023 4:29 AM CDT Jessica Grullon MD LABORATORY [facility] POINT OF [address] * (ABNORMAL) POC GLUCOSE (11/11/2023 3:28 AM CDT) POC Glucose 153(H) 70 - 100 mg/dL [facility] POINT OF CARE Blood 11/11/2023 3:28 AM CDT Jessica Grullon MD LABORATORY [facility] [address] [place] [address], [place] * (ABNORMAL) POC GLUCOSE (11/11/2023 2:18 AM CDT) POC Glucose 172(H) 70 - 100 mg/dL [facility] POINT OF [facility] Blood 11/11/2023 2:18 AM CDT Jessica Grullon MD LABORATORY Performing Organization Address City/[facility] Co de Phone Number [facility] [address] [place] [address], [place] * (ABNORMAL) POC GLUCOSE (11/11/2023 1:03 AM CDT) POC Glucose 171(H) 70 - 100 mg/dL [facility] POINT [facility] Blood 11/11/2023 1:03 AM CDT Jessica Grullon MD LABORATORY Performing Organization Address City/[facility] Co de Phone Number [facility] [address] [place] [address], [place] * (ABNORMAL) POC GLUCOSE (11/10/2023 11:50 PM CDT) POC Glucose 201(H) 70 - 100 mg/dL [facility] POINT OF [facility] Blood 11/10/2023 11:5 0 PM CDT Jessica Grullon MD LABORATORY Performing Organization Address City/[facility]/ZIP Co de Phone Number [facility] [address] [place] [address], [place] * (ABNORMAL) POC GLUCOSE (11/10/2023 10:39 PM CDT) POC Glucose 192(H) 70 - 100 mg/dL [facility] - POINT OF CARE Blood 11/10/2023 10:3 9 PM CDT Jessica Grullon MD LABORATORY [facility] POINT OF CARE [address] [place] [phone], [place] * (ABNORMAL) TROP 6H (11/10/2023 10:15 PM CDT) 6H Trop 35 <=35 ng/L [facility] 6H Delta Significan t(A) Not Significant [facility] Blood 11/10/2023 10:1 5 PM CDT 11/10/2023 10:31 PM CDT Jessica Grullon MD LABORATORY Performing Organization Address City/[facility]/ZIP Co de Phone Number [facility] [address] [place] [phone] * (ABNORMAL) POC GLUCOSE (11/10/2023 9:36 PM CDT) POC Glucose 200(H) 70 - 100 mg/dL [facility] POINT OF CARE Blood 11/10/2023 9:36 PM CDT Jessica Grullon MD LABORATORY Performing Organization Address City/[facility]/ZIP Co de Phone Number [facility] POINT OF CARE [address] [place] [address], [place] * (ABNORMAL) POC GLUCOSE (11/10/2023 8:17 PM CDT) POC Glucose 221(H) 70 - 100 mg/dL [facility] POINT OF CARE Blood 11/10/2023 8:17 PM CDT Jessica Grullon MD LABORATORY Performing Organization Address City/[facility]/ZIP Co de Phone Number [facility] POINT OF CARE [address] [place] [phone], [place] * (ABNORMAL) POC GLUCOSE (11/10/2023 7:07 PM CDT) POC Glucose 227(H) 70 - 100 mg/dL [facility] POINT OF CARE Blood 11/10/2023 7:07 PM CDT Jessica Grullon MD LABORATORY Performing Organization Address [facility]/ZIP Co de Phone Number [facility] POINT OF CARE [address] [place] [phone], * (ABNORMAL) TROP 2H (11/10/2023 6:34 PM CDT) Pathologist [facility] 2H Trop 21 <=35 ng/L [facility] 2H Delta Significan t(A) Not Significant [facility] Blood 11/10/2023 6:34 PM CDT 11/10/2023 6:37 PM CDT Jessica Grullon MD LABORATORY Performing Organization Address [facility] Co de Phone Number [facility] [address] [address] * (ABNORMAL) LACTATE (LACTIC ACID) (11/10/2023 6:34 PM CDT) Pathologist [facility] Lactate 14.6(H) 0.7 - 2.1 mmol/L [facility] Blood 11/10/2023 6:34 PM CDT 11/10/2023 6:37 PM CDT Narrative [facility] - 11/10/2023 6:41 PM CDT Send specimen on ice! Jessica Grullon MD LABORATORY Performing Organization Address [facility] Co de Phone Number [facility] [address] [address] * (ABNORMAL) POC GLUCOSE (11/10/2023 6:07 PM CDT) POC Glucose 201(H) 70 - 100 mg/dL [facility] POINT OF CARE Blood 11/10/2023 6:07 PM CDT Jessica Grullon MD LABORATORY Performing Organization Address [facility] Co de Phone Number [facility] POINT OF CARE [address] [place] [address], * (ABNORMAL) POC GLUCOSE (11/10/2023 5:30 PM CDT) POC Glucose 197(H) 70 - 100 mg/dL [facility] POINT OF [facility] Blood 11/10/2023 5:30 PM CDT Jessica Grullon MD LABORATORY Performing Organization Address [facility] de Phone Number [address] [address], [place] * M TUBERCULOSIS AMPLIFICATION (11/10/2023 5:13 PM CDT) Final Report M. tuberculosis complex DNA not detected. [facility] Tissue STRUCTURE OF PERINEAL BODY / Unknown 11/10/2023 5:13 PM CDT 11/11/2023 10:50 AM CDT Comment:2:Perineal tissue Narrative [facility] - 11/11/2023 3:22 PM CDT This assay uses PCR nucleic acid amplification to detect Mycobacterium tuberculosis complex DNA. ??This test was developed and its performance characteristics determined by [facility]. ??It has not been cleared or approved by the U.S. Food and Drug Administration. ??FDA does not require this test to go through premarket FDA review. ??This test is used for clinical purposes. ??It should not be regarded as investigational or for research. ??[facility] Clinical Laboratory is certified under the Clinical Laboratory Improvement Amendments of 1988 (CLIA) as qualified to perform high complexity clinical laboratory testing. Zac Churchill MD LAB MICROBIOLOGY Performing Organization Address City/[facility] Co de Phone Number [facility] [address] [place] [phone] * (ABNORMAL) TISSUE CULTURE:INCLUDES GRAM STAIN (11/10/2023 5:13 PM CDT) Final Report Positive Culture Rare Actinomyces species isolated. Most closely resembles Actinomyces hominis. Rare Staphylococcus pettenkoferi isolated. A member of the coagulase-negative Staphylococci. Staphylococcus epidermidis isolated in broth only. No further work-up. Plates held one week. (POS) [facility] Organism ACTINOMYCES SPECIES(POS) [facility] Organism STAPHYLOCOCCUS PETTENKOFERI(POS) [facility] Organism STAPHYLOCOCCUS EPIDERMIDIS(POS) [facility] Gram Stain Report Positive Gram stain Gram stain electronically reported to and acknowledged by: Fermin Osborn MD for Burn on 11/10/2023 18:43:03 by Silver Luna [facility] Rare WBC's seen. Many gram positive cocci in clusters. (POS) [facility] Tissue STRUCTURE OF PERINEAL BODY / Unknown 11/10/2023 5:13 PM CDT Zac Churchill MD LAB MICROBIOLOGY Performing Organization Address [facility] de Phone Number [facility] [address] [address] * FUNGUS CULTURE:INCLUDES SUHAS (11/10/2023 5:13 PM CDT) Final Report No fungus isolated. [facility] USHAS Prep No fungal elements seen. [facility] Tissue STRUCTURE OF PERINEAL BODY / Unknown 11/10/2023 5:13 PM CDT Zac Churchill MD LAB MICROBIOLOGY Performing Organization Address [facility] Co de Phone Number [facility] [address] [address] * (ABNORMAL) ANAEROBE CULTURE (11/10/2023 5:13 PM CDT) Final Report Positive Culture Many mixed anaerobes present. (POS) [facility] Tissue STRUCTURE OF PERINEAL BODY / Unknown 11/10/2023 5:13 PM CDT Zac Churchill MD LAB MICROBIOLOGY Performing Organization Address [facility] Co de Phone Number [facility] [address] [address] * AFB CULTURE:INCLUDES AFB SMEAR (11/10/2023 5:13 PM CDT) Final Report No acid fast bacilli isolated. [facility] Acid Fast Stain No acid fast bacilli seen. [facility] Tissue STRUCTURE OF PERINEAL BODY / Unknown 11/10/2023 5:13 PM CDT Zac Churchill MD LAB MICROBIOLOGY Performing Organization Address [facility] Co de Phone Number [facility] [address] [address] * (ABNORMAL) WOUND CULTURE:GRAM STAIN OPTIONAL (11/10/2023 5:12 PM CDT) Final Report Rare Actinomyces species isolated. Most closely resembles Actinomyces hominis. One colony Staphylococcus epidermidis isolated. (POS) [facility] Organism ACTINOMYCES SPECIES(POS) [facility] Organism STAPHYLOCOCCUS EPIDERMIDIS(POS) [facility] Gram Stain Report Many WBC's seen. Many gram positive cocci in clusters. [facility] Swab STRUCTURE OF PERINEAL BODY / Unknown 11/10/2023 5:12 PM CDT Narrative [facility] - 11/12/2023 3:34 PM CDT Do you want a gram stain: No Zac Churchill MD LAB MICROBIOLOGY Performing Organization Address [facility] Co de Phone Number [facility] [address] [address] * FUNGUS CULTURE:INCLUDES SUHAS (11/10/2023 5:12 PM CDT) Final Report No fungus isolated. [facility] SUHAS Prep No fungal elements seen. [facility] Swab STRUCTURE OF PERINEAL BODY / Unknown 11/10/2023 5:12 PM CDT Zac Churchill MD LAB MICROBIOLOGY Performing Organization Address [facility] Co de Phone Number [facility] [place] [address] [address] * ANAEROBE CULTURE (11/10/2023 5:12 PM CDT) Final Report Moderate mixed anaerobes present. [facility] Swab STRUCTURE OF PERINEAL BODY / Unknown 11/10/2023 5:12 PM CDT Zac Churchill MD LAB MICROBIOLOGY Performing Organization Address [facility] Co de Phone Number [facility] [address] [address] * (ABNORMAL) POC GLUCOSE (11/10/2023 4:28 PM CDT) POC Glucose 236(H) 70 - 100 mg/dL [facility] POINT OF CARE Blood 11/10/2023 4:28 PM CDT Jessica Grullon MD LABORATORY Performing Organization Address [facility] de Phone Number [facility] POINT OF [address] [address], * ED EKG (12-LEAD) (11/10/2023 3:21 PM CDT) 11/10/2023 3:21 PM CDT Impressions [facility] CVIS EKG ORDERS - 11/10/2023 3:21 PM CDT SINUS TACHYCARDIA MINIMAL ST DEPRESSION ??[0.025+ mV ST DEPRESSION] ABNORMAL QRS-T ANGLE ??[QRS-T AXIS DIFFERENCE > 60] NONSPECIFIC ST AND T WAVE ABNORMALITY. ABNORMAL ECG P-R Interval 138 ms QRS Interval 90 ms QT Interval 348 ms QTC Interval 405 ms P [place] 35 QRS [place] 1 T Wave [place] 148 Narrative Procedure Note Jessica Grullon MD - 11/10/2023 IMPRESSION SINUS TACHYCARDIA MINIMAL ST DEPRESSION [0.025+ mV ST DEPRESSION] ABNORMAL QRS-T ANGLE [QRS-T AXIS DIFFERENCE > 60] NONSPECIFIC ST AND T WAVE ABNORMALITY. 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 ??No initial report accompanied the patient and/or Dr. ??JESSICA GRULLON requested an interpretation by me. Technique: ??CT scan of the left lower extremity done on 11/10/2023 with IV contrast. 2 mm axial, sagittal and coronal reconstructions reviewed in soft tissue and bone windows, per the local institution's scanning protocols, which may differ from the [facility] trauma protocols. Findings: ??Subcutaneous emphysema within the [...] MBBS - 11/10/2023 Indication: Patient transferred from [facility] due toFournier's gangrene. No initial report accompanied the patient and/or Dr.ROCHELLE GRULLON requested an interpretation by me. Technique: CT scan of the left lower extremity done on 11/10/2023 with IVcontrast. 2 mm axial, sagittal and coronal reconstructions reviewed insoft tissue and bone windows, per the local institution's scanningprotocols, which may differ from the [facility] trauma protocols. 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 ??No initial report accompanied the patient and/or Dr. ??JESSICA GRULLON requested an interpretation by me. Technique: ??CT scan of the abdomen/pelvis done on 11/10/2023 ??with IV contrast. ??3 mm axial, sagittal and coronal reconstructions reviewed in soft tissue and bone windows, per the local institution's scanning protocols, which may differ from the [facility] trauma protocols. Comparison: Same day scrotal ultrasound. [...] MBBS - 11/10/2023 Indication: Patient transferred from [facility] due toFournier's gangrene. No initial report accompanied the patient and/or .JESSICA GRULLON requested an interpretation by me. Technique: CT scan of the abdomen/pelvis done on 11/10/2023 with IVcontrast. 3 mm axial, sagittal and coronal reconstructions reviewed insoft tissue and bone windows, per the local institution's scanningprotocols, which may differ from the [facility] trauma protocols. Comparison: Same day scrotal ultrasound. [...] (11/10/2023 2:40 PM CDT) Color YELLOW YELLOW [facility] Appearance CLEAR CLEAR [facility] Urine Glucose >=1000(A) NEGATIVE mg/dL [facility] Bili UA NEGATIVE NEGATIVE [facility] Ketones TRACE(A) NEGATIVE [facility] Blood Ur LARGE(A) Neg-Trace [facility] PH Urine 6.5 5.0 - 7.0 [facility] Protein Ur >=600(A) Neg-Trace [facility] Urobilinogen NORMAL NORMAL EU/dL [facility] Nitrite Ur NEGATIVE NEGATIVE [facility] Leuk Est NEGATIVE Neg-Trace [facility] WBC Ur 0-5 0 - 5 perHPF [facility] RBC Ur 11-20(A) 0 - 3 perHPF [facility] SQ EPITH 0-5 0 - 5 perHPF [facility] Mucus 1+ perLPF [facility] Bacteria UA PRESENT [facility] Comment:Presence of bacteria does not necessarily indicate a UTI. The presence of bacteria can indicate a non-clean catch urine specimen. Bacteria should be used in conjunction with other UA results and clinical presentation to assist in diagnosing an infection. Urinalysis Performed at: [facility] Specific [place] 1.020 1.003 - 1.030 [facility] Urine 11/10/2023 2:40 PM CDT 11/10/2023 2:47 PM CDT Jessica Grullon MD LABORATORY Performing Organization Address [facility] Co de Phone Number [facility] [place] [phone] * BLOOD AEROBIC/ANAEROBIC CULTURE (11/10/2023 2:39 PM CDT) Final Report No growth after 5 days. [facility] Blood (Peripheral) 11/10/2023 2:39 PM CDT 11/10/2023 4:09 PM CDT Jessica Grullon MD LAB MICROBIOLOGY Performing Organization Address [facility] Co de Phone Number [facility] [address] [address] * BLOOD AEROBIC/ANAEROBIC CULTURE (11/10/2023 2:37 PM CDT) Final Report No growth after 5 days. [facility] Blood (Peripheral) 11/10/2023 2:37 PM CDT 11/10/2023 4:09 PM CDT Jessica Grullon MD LAB MICROBIOLOGY Performing Organization Address [facility]/ZIP Co de Phone Number [facility] [address] [address] * (ABNORMAL) SED RATE (ESR) (11/10/2023 2:31 PM CDT) Sed Rate 120(H) 2 - 10 mm/hr [facility] Blood 11/10/2023 2:31 PM CDT 11/10/2023 2:57 PM CDT Jessica Grullon MD LABORATORY Performing Organization Address [facility] Co de Phone Number [facility] [address] [address] * EXTRA TUBE - SST (11/10/2023 2:31 PM CDT) Pathologist [facility] SST TUBE Stored [facility] Comment:SST tubes (Serum Sep arator) are stored in the lab for 3 days from the collection date. Blood 11/10/2023 2:31 PM CDT 11/10/2023 2:43 PM CDT Jessica Grullon MD LABORATORY Performing Organization Address [facility] Co de Phone Number [facility] [address] [address] * (ABNORMAL) HS TROPONIN (11/10/2023 2:31 PM CDT) [facility] HS Troponin I 49(H) <=35 ng/L [facility] Blood 11/10/2023 2:31 PM CDT 11/10/2023 2:57 PM CDT Narrative [facility] - 11/10/2023 3:25 PM CDT First Occurrence of the Troponin order is to be drawn Stat by Nursing staff on the unit. Jessica Grullon MD LABORATORY Performing Organization Address [facility] Co de Phone Number [facility] [address] [address] * ETHANOL (ETOH) LEVEL, BLOOD (11/10/2023 2:31 PM CDT) [facility] Ethanol Negative Negative g/dL [facility] Blood 11/10/2023 2:31 PM CDT 11/10/2023 2:57 PM CDT Jessica Grullon MD LABORATORY Performing Organization Address [facility] Co de Phone Number [facility] [address] [address] * PTT (APTT) (11/10/2023 2:31 PM CDT) [facility] APTT 32.9 25.0 - 37.0 sec [facility] Blood 11/10/2023 2:31 PM CDT 11/10/2023 2:57 PM CDT Jessica Grullon MD LABORATORY Performing Organization Address [facility] Co de Phone Number [facility] [address] [address] * ED INR (11/10/2023 2:31 PM CDT) [facility] ED INR 1.1 0.8 - 1.1 [facility] Comment: Warfarin Therapeutic Range: Standard Intensity: 2.0 - 3.0 High Intensity: 2.5 - 3.5 This is a rapid INR screening test which uses whole blood; results may infrequently differ from plasma INR results. If medication adjustments/dosing are required a PT/INR test ([id number]) should be ordered and performed in the main laboratory. Blood 11/10/2023 2:31 PM CDT 11/10/2023 2:41 PM CDT Jessica Grullon MD LABORATORY Performing Organization Address [facility] Co de Phone Number [facility] [address] [address] * (ABNORMAL) LACTATE (LACTIC ACID) (11/10/2023 2:31 PM CDT) [facility] Lactate 2.3(H) 0.7 - 2.1 mmol/L [facility] Blood 11/10/2023 2:31 PM CDT 11/10/2023 2:45 PM CDT Narrative [facility] - 11/10/2023 2:49 PM CDT Send specimen on ice! Jessica Grullon MD LABORATORY Performing Organization Address [facility] Co de Phone Number [facility] [address] [address] * (ABNORMAL) FIBRINOGEN (11/10/2023 2:31 PM CDT) [facility] Fibrinogen >1,000(H) 200 - 400 mg/dL [facility] Blood 11/10/2023 2:31 PM CDT 11/10/2023 2:57 PM CDT Jessica Grullon MD LABORATORY Performing Organization Address [facility] de Phone Number [address] [address] * (ABNORMAL) PANEL HEPATIC FUNCTION (11/10/2023 2:31 PM CDT) Pathologist [facility] Total Protein 7.1 6.4 - 8.3 g/dL [facility] Albumin 2.9(L) 3.8 - 5.1 g/dL [facility] Bili Total 0.3 <=1.2 mg/dL [facility] Bili Direct <0.2 <=0.3 mg/dL [facility] Alk Phos 104 40 - 129 IU/L [facility] Comment:No reference range e stablished for patients <18 years old. ALT (SGPT) 9 <=41 IU/L [facility] AST(SGOT) 14 5 - 40 IU/L [facility] Blood 11/10/2023 2:31 PM CDT 11/10/2023 2:57 PM CDT Jessica Grullon MD LABORATORY [facility] [address] [place] [id number] * (ABNORMAL) ED HEMOGLOBIN TOTAL (ED ONLY) (11/10/2023 2:31 PM CDT) Hgb 12.4(L) 13.1 - 17.5 g/dL [facility] Blood 11/10/2023 2:31 PM CDT 11/10/2023 2:45 PM CDT Jessica Grullon MD LABORATORY [facility] [address] [address] * (ABNORMAL) ED CHEMISTRY LABS(NA,K,CL,CO2,GLU,CREAT,CA-IONIZED,ANION GAP) (11/10/2023 2:31 PM CDT) Sodium 133(L) 135 - 148 mmol/L [facility] Potassium 3.7 3.5 - 5.3 mmol/L [facility] Chloride 93 92 - 108 mmol/L [facility] AnGap 12 8 - 16 mmol/L [facility] Glucose 304(H) 70 - 100 mg/dL [facility] ICA, Actual 4.14(L) 4.40 - 5.20 mg/dL [facility] ICA, pH Corrected 4.29(L) 4.40 - 5.20 mg/dL [facility] Creatinine 0.98 0.70 - 1.25 mg/dL [facility] BICARB 27(H) 22 - 26 mEq/L [facility] eGFR (2020 CKD-EPI) 97 >=60 ml/min/1.7 3m2 [facility] Comment: The estimated glomerular filtration rate (eGFR) was calculated using the CKD-EPI 2020 creatinine equation, which does not include race as a factor. This equation is validated in individuals 18 years of age and older, and eGFR is normalized to a body surface area of 1.73m^2. Blood 11/10/2023 2:31 PM CDT 11/10/2023 2:45 PM CDT Jessica Grullon MD LABORATORY [facility] [address] [place] [address] * (ABNORMAL) CBC WITH PLTS/AUTO DIFF (11/10/2023 2:31 PM CDT) WBC 21.95(H) 4.00 - 10.00 k/cmm [facility] RBC 4.26(L) 4.60 - 6.00 m/cmm [facility] Hgb 12.0(L) 13.1 - 17.5 g/dL [facility] Hematocrit 36.3(L) 40.0 - 51.0 % [facility] MCV 85.2 80.0 - 100.0 fL [facility] MCH 28.2 25.0 - 32.0 pg [facility] MCHC 33.1 31.0 - 36.0 g/dL [facility] RDW 12.9 11.5 - 14.5 % [facility] Plt 262 150 - 400 k/cmm [facility] MPV 10.1 6.5 - 12.5 fL [facility] Automated Abs Neutrophil 18.29(H) 1.70 - 6.50 k/cmm [facility] Comment:Preliminary ANC, Fin al Result to Follow Abs Immature Granulocyte 0.26(H) 0.00 - 0.09 k/cmm [facility] Comment:The Immature Granulo cyte Absolute count contains metamyelocytes and myelocytes. Abs Neutrophil 18.29(H) 1.70 - 6.50 k/cmm [facility] Abs Lymphocyte 1.53 0.80 - 4.00 k/cmm [facility] Abs Monocyte 1.83(H) 0.20 - 1.00 k/cmm [facility] Abs Eosinophil 0.00 0.00 - 0.60 k/cmm [facility] Abs Basophil 0.04 0.00 - 0.20 k/cmm [facility] Polychromasia Slight [facility] Dohle Body Present [facility] Toxic Vac Present [facility] Blood 11/10/2023 2:31 PM CDT 11/10/2023 2:57 PM CDT Jessica Grullon MD LABORATORY Performing Organization Address [facility] Co de Phone Number [facility] [address] [address] * (ABNORMAL) BLOOD GASES (11/10/2023 2:31 PM CDT) PH [place] 7.47(H) 7.32 - 7.42 [facility] PCO2 [place] 38(L) 41 - 51 mmHG [facility] PO2 [place] 75(H) 25 - 40 mmHG [facility] Bicarb [place] 27 24 - 28 mEq/L [facility] O2 Sat Mayo 96 % [facility] Base Exc [place] 3.7(H) -10.0 - 2.0 mmol/L [facility] Blood Venous 11/10/2023 2:31 PM CDT 11/10/2023 2:45 PM CDT Jessica Grullon MD LABORATORY Performing Organization Address [facility] Co de Phone Number [facility] [address] [address] * ANTIBODY SCREEN (11/10/2023 2:29 PM CDT) Lilly Screen Negative [facility] Blood 11/10/2023 2:29 PM CDT 11/10/2023 2:49 PM CDT Jessica Grullon MD LAB TRANSFUSION SER VICES Performing Organization Address [facility] Co de Phone Number [facility] [address] [address] * BLOOD TYPING-ABO/RH (11/10/2023 2:29 PM CDT) ABORHG A POS [facility] Blood 11/10/2023 2:29 PM CDT 11/10/2023 2:49 PM CDT Jesscia Grullon MD LAB TRANSFUSION SER VICES Performing Organization Address [facility] Co de Phone Number [facility] [address] [address] * PRECAUTIONARY TUBE (11/10/2023 2:29 PM CDT) Prec Tube Precautionary Blood Bank Specimen Received. [facility] Blood 11/10/2023 2:29 PM CDT 11/10/2023 2:49 PM CDT Jessica Grullon MD LAB TRANSFUSION SER VICES [facility] [address] [place] [address] * ED US CRITICAL CARE (11/10/2023 2:28 PM CDT) Anatomical Region Laterality Modality Ultrasound Narrative 11/10/2023 3:16 PM CDT ED Critical Care Resuscitative Ultrasound ED Cardiac Ultrasound Body Areas Imaged: Heart, Chest Wall/Lungs, and Inferior Vena Cava Indications:Shock/Sepsis Window: Subxiphoid, Parasternal Short [place], Parasternal Long [place], Apical 4-Chamber, and Bilateral Lungs Findings: The [...] TIME, 1 dose, On Wed11/11/23 at 0640 New 11/11/2023 10:09 AM CDT 1 g 12 [...] 0900, Last dose on Wed11/17/23 at 0900 [facility] 11/16/2023 8:20 AM CDT 2 g 200 mL/hr 11/15/2023 9:05 AM CDT 2 g 200 mL/hr [facility] 11/14/2023 9:40 AM CDT 2 g 200 mL/hr clindamycin (CLEOCIN) IVPB 900 mg 900 mg, Indication (Select One): Infection - Confirmed, SITE (Select all that apply): Skin/Soft Tissue, Cultures Ordered? Yes, Intravenous, Q 8H, First dose on Wed11/10/23 at 1830, Until Discontinued [facility] 11/12/2023 5:24 PM CDT 900 mg 50 mL/ hr 11/12/2023 9:21 AM CDT 900 mg 50 mL/hr [facility] 11/12/2023 12:23 AM CDT 900 mg 50 [...] 11/12/2023 1:40 PM CDT 600 mg heparin [id number] UNITS/mL injection 7,500 UNITS 7,500 UNITS, Subcutaneous, [...] TIME, 1 dose, On Wed11/10/23 at 1445 New Bag 11/10/2023 3:52 PM CDT 600 mg 150 mL/hr magnesium sulfate 2 g IVPB 2 g, Intravenous, ONE TIME, Administer over 1 Hours, On Wed11/11/23 at 0640 New Bag 11/11/2023 7:02 AM CDT 2 g 50 mL/hr metroNIDAZOLE (FLAGYL) IVPB 500 mg 500 mg, Indication (Select One): Infection - Confirmed, SITE (Select all that apply): Skin/Soft Tissue, Cultures Ordered? Yes, Intravenous, Q6H, 20 doses, First dose on Wed11/13/23 at 0900, Last dose on Wed11/18/23 at 0600 New Bag 11/15/2023 5:34 AM CDT 500 mg New Bag 11/15/2023 12:12 AM CDT 500 mg New 11/14/2023 6:47 PM CDT 500 mg metroNIDAZOLE [...] 11/11/2023 10:36 AM CDT 75 mL/hr New 11/11/2023 7:43 AM CDT 125 mL/hr NaCl 0.9% infusion at 1,000 mL/hr, Intravenous, ONE TIME, 1 dose, On Wed11/15/23 at 1050 New 11/15/2023 11:27 AM CDT 1000 mL/hr nicotine [...] dose, Starting on Wed11/13/23 at 1957, Until 11/13/23 at 2135, Agitation, Psychosis Given 11/13/2023 9:35 [...] RN)2029 (Given - Provider: Irene Min RN) 750 (Given - Provider: Demetra Brito RN)142 (Given - Provider: Demetra Brito RN)2015 (Given - Provider: Sheila Dias RN) 0847 (Given - Provider: Kate Harmon RN) amLODIPine (NORVASC) tablet 10 mg 10 mg, Oral, DAILY, First dose (after last modification) on Wed11/17/23 at 2110, Until Discontinued 2028 (Given - Provider: Irene Min RN) 2015 (Given - Provider: Sheila Dias, SABINE) cyclobenzaprine (FLEXERIL) tablet 10 mg 10 mg, Oral, TID, First dose on Wed11/11/23 at 1200, Until Discontinued 903 (Given - Provider: John Taylor RN)1423 (Given - Provider: Demetra Brito RN)2029 (Given - Provider: Irene Min RN) 750 (Given - Provider: Demetra Brito RN)143 (Given - Provider: Demetra Brito RN)2015 (Given - Provider: Sheila Dias, SABINE) 0847 (Given - Provider: Kate Harmon RN) [...] Min, RN) 2015 (Given - Provider: Sheila Dias, RN) heparin 11809 UNITS/mL injection 7,500 UNITS 7,500 UNITS, Subcutaneous, Q 8H, First dose on Wed11/17/23 at 1505, Until Discontinued 0553 (Given - Provider: Mabel Mathews, RN)1424 (Given - Provider: Demetra Brito, SABINE)2304 (Given - Provider: Irene Min, SABINE) 0603 (Given - Provider: Deja Vasquez RN)1429 (Given - Provider: Demetra Brito, SABINE)2224 (Given - Provider: Sheila Dias, RN) 0646 (Given - Provider: Sheila Dias, RN) insulin ASPART (NovoLOG) FlexPen Insulin Order [...] Demetra Brito RN)0904 (Given - Provider: John Taylor, SABINE)1145 (Dual Sign-Off - Provider: John Taylor, SABINE)1149 (Given - Provider: John Taylor, SABINE)1636 (Dual Sign-Off - Provider: Demetra Brito RN)1639 [...] dose on Wed11/11/23 at 0800, Until Discontinued 39 (Not Given (removes Due time) - Provider: [...] 2014 (Given - Provider: Sheila Dias, SABINE) sennosides (SENOKOT) tablet 17.2 mg 17.2 mg, Oral, BID, First dose (after last modification) on Wed11/11/23 at 1999, Until Discontinued 39 (Not Given (removes Due time) - Provider: Demetra Brito RN - Reason: Patient not in room)2028 (Given - Provider: Irene Min RN) 0752 (Not Given (removes Due time) - Provider: Demetra Brito RN - Reason: Patient refused)2043 (Not Given (removes Due time) - Provider: Sheila Dias, RN - Reason: Patient refused) 0847 (Given - Provider: Kate Harmon RN) traZODone (DESYREL) tablet 50 mg 50 mg, Oral, BEDTIME, First dose on Wed11/12/23 at 2000, Until Discontinued 2029 (Given - Provider: Irene Min, SABINE) 2014 (Given - Provider: Sheila Dias RN) [...] RN)2015 (Given - Provider: Sheila Dias, SABINE) normal saline flush 0.9 % solution 10 mL 10 mL, IV Push, Q5 MIN PRN, Starting on Wed11/14/23 at 2323, Until Wed11/25/23 at 1502, IV Line Flush ondansetron (ZOFRAN) tablet 4 mg 4 mg, Oral, Q6H PRN, Starting on Wed11/10/23 at 2344, Until Wed11/25/23 at 1502, Nausea/Vomiting (Use First), Use if patient able to tolerate oral dose oxyCODONE (ROXICODONE) tablet 5-10 mg 5-10 mg, Oral, Q4H PRN, Starting on Heather 11/11/23 at 1026, Until Heather 11/25/23 at 1502, Moderate Pain (Use First) 0908 (Given - Provider: John Taylor RN)1424 (Given - Provider: Demetra Brito, SABINE) 2024 (Given - Provider: Sheila Dias RN) 0952 (Given - Provider: Kate Harmon RN) Linked Groups Order Group 1: DC MED REC REVIEW BY PHARMACYJump to med Discharge Date: 11/24/2023, Discharge Location: [facility]hab, Anticipated Discharge Time: After 2 pm, Discharge Medication Orders: DC Med Orders Final, Does not apply, PROTOCOL, Starting on 11/24/23 at 1319, Until Heather 11/25/23 at 1502 [...]
--- OUTSIDE RECORDS SUMMARY | 2024-02-14 09:05 | XMS_ITS | Encounter Summary ---
Author Organization [facility] Address [address] [place] [address] Phone Care Team Providers Care Territory Account Executive Name Role Phone Unavailable Primary Care [...]
--- OUTSIDE RECORDS SUMMARY | 2024-02-14 09:05 | XMS_ITS | Encounter Summary ---
Author Organization [facility] Address [address] [place] [id number] Phone Care Team Providers Care Industrial Safety And Health Technician Name Role Phone Unavailable Primary Care [...]
--- OUTSIDE RECORDS SUMMARY | 2024-02-14 09:05 | XMS_ITS | Encounter Summary ---
Author Organization [facility] Address [address] [place] [address] Phone Care Team Providers Care Tripe Cooker Name Role Phone Unavailable Primary Care Provider [...]
--- OUTSIDE RECORDS SUMMARY | 2024-02-14 09:05 | XMS_ITS | Encounter Summary ---
Author Organization [facility] Address [address] [facility] [place] [address] Phone Care Team Providers Care Ski Technician Name Role Phone Unavailable Primary Care Provider Unavailabl e Reason for Visit * Auth/Cert (Routine) Specialty Diagnoses / Procedures Referred By Katherine t Referred To Contact SURGERY Diagnoses 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HHS) Hyperglycemia Zac Jackson MD [address] [facility] [address] [place] [address] [address] [phone] [place] [address] Referral ID Status Reason Start Date Expiration Date Visits Re quested Visits Authorized [id number] 1 1 Encounter Details Date Type Department Care Team (Late st Contact Info) Description 11/17/2023 9:01 AM CDT Anesthesia Event OR P4 [address] [place] [address] Brady Lai MD [address] [facility] [address] [place], [place] [id number] [place] [id number] Anesthesia Record Procedure Summary Procedure Name Responsible [...] [facility] Anest[facility] type: MAC () Patient location: PACU [...] GI (+) obesity Hematologic/Onc - negative ROS /Renal/Enterprise Security Architect (+) chronic renal disease (acute and chronic) [...] risks discussed with patient. Plan discussed with MACHINE SHOP REPAIR TECHNICIAN. Vitals: 11/17/23 0344 BP: (!) 171/80 Pulse: 90 Resp: 16 Temp: 36.6 ??C (97.9 ??F) SpO2: 96% documented in this encounter Miscellaneous Notes * Anesthesia Handoff Note - Dayana Rincon APRN, MACHINE SHOP REPAIR TECHNICIAN - 11/17/2023 9:58 AM CDT Anesthesia Post [...]
--- OUTSIDE RECORDS SUMMARY | 2024-02-14 09:05 | XMS_ITS | Encounter Summary ---
Author Organization [facility] Address [address] [place] [address] Phone Care Team Providers Care Freight Loader Name Role Phone Unavailable Primary Care Provider Unavailabl e Encounter Details Date Type Department Care Team (Late st Contact Info) Description 11/18/2023 [facility] [place] [phone] Eusebio Leon, DO [address] [id number] Social History Tobacco Use Types Packs/Day Years [...]
--- OUTSIDE RECORDS SUMMARY | 2024-02-14 09:05 | XMS_ITS | Encounter Summary ---
Author Organization [facility] Address [address] [place] [address] Phone Care Team Providers Care Proof Tester Name Role Phone Unavailable Primary Care [...]
--- OUTSIDE RECORDS SUMMARY | 2024-02-14 09:06 | XMS_ITS | Encounter Summary ---
Author Organization [facility] Address [address] [place] [address] Phone Care Team Providers Care Consulting Database Administrator Name Role Phone Unavailable Primary Care Provider Unavailabl e Reason for Visit * Reason Comments Fever Penis/Scrotal Problem Toe Problem * Auth/Cert (Routine) Specialty Diagnoses / Procedures Referred By Katherine t Referred To Contact SURGERY Diagnoses 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HHS) Hyperglycemia Zac Churchill MD [address] [facility] [address] [place] [address] [address] [facility] [address] [place] [address] Referral ID Status Reason Start Date Expiration Date Visits Re quested Visits Authorized [id number] 1 1 Encounter Details Date Type Department Care Team (Late st Contact Info) Description 11/17/2023 8:34 AM CDT - 11/17/2023 9:46 AM CDT Surgery OR P4 [address] [place] [address] Che Palomo DPM [address] [facility] [address] [place], [place] [id number] AMPUTATION, TOE Social History Tobacco Use Types [...] encounter Discharge Summaries * 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 APRN, BOTTLING SUPERVISOR - 11/25/2023 7:37 AM CDT GENERAL SURGERY DISCHARGE SUMMARY - HOSPICE DIRECTOR Stephanie Low : 1980 Sex: male Date of Admission: 11/10/2023 Date of Discharge: 11/25/2023 Disposition: [facility] Facility Primary care physician: No primary care [...] will follow up with 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 APRN, BOTTLING SUPERVISOR Malnutrition Weight: (!) 142.9 kg (315 lb 1.6 oz) Wt Change from Previous: 0 Kg Wt Change from Admit: 2.43 Kg % Wt Change from Adm: 1.73 % Florence Body Wt (IBW) Male (kg): 75.26 kg [...] oriented x 3. No gross focal deficits Sports Psychologist Needed: no PLANNED DISCHARGE ORDERS: Suture/Sharon: None [...] of plan of care? Yes Okay for [facility] Facility standing orders? Question Response Notes OK for [facility] Facility house standing orders? Yes Other Nursing [...] or contraindicated. Resume previous standing orders per correction policy Order Notes Resume previous standing orders per correction policy Patient is on a Consistent Carbohydrate [...] 4:30PM, M-F): Call the Surgery Clinic at [phone] After hours or on Holidays: [place] [facility] [place] slitter and rewinder machine operator . Ask the slitter and rewinder machine operator to page the general surgery resident hydrogenation operator. IF: -- you feel you are getting [...] -- Read all labels for prescription and Xbwk-ngs-zmmhvaz medicines. Ask the pharmacist if your prescription [...] Your Medications These medications were [place] [facility] [place] [address] Hours: 30/11 insulin LISPRO 100 UNIT/ML Kwikpen [...] plan. 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 APRN, CNP 11/25/2023 07:37 [facility] Department of Surgery Pager: via telemediq I have spent 45 minutes with this patient today in which greater than 50% of this time was spent incounseling/coordination of care regarding in patient care, review of imaging/labs, chart review andconsultant recommendations. Dictation Disclaimer: Some notes are completed with voice-recognition dictation software. Errors are generally corrected in real time. Please contact me via [employer] staff message if you note any errors [...] - Resources for patient (select all that apply):[id number]} documented in this encounter Medications at Time [...] 11/24/2023 loratadine (CLARITIN) 10 mg oral tabletIndications:Sea ajya Allergic Rhinitis Take 1 tablet (10 mg) [...] the discharge summary paperwork with medication orders. Web Operations Manager opened admission encounter and re-faxed discharge paperwork to the provided fax # of [phone]. Tried a second fax # after this wasn't received, which also wasn't received. Third attempt made viaencrypter email. Confirmed received paperwork via encrypted email. Pepe Hernandez RN, 11/25/2023 9:33 PM ED Clinical Coordinator Office: [phone] [employer]: ED Clinical Coordinator * Kate Harmon [...] if they call back with questions. Kate Hramon RN, 11/25/2023 11:20 AM * Aretha Damon [...] (Arrive by 12:50 PM) with Dr Palomo ([facility]) since he is discharging to [place].Follows with [facility] when closer to home otherwise. Please page hydrogenation operator resident with questions. Interval History Patient was [...] Rosenthal DPM, 11/25/2023 10:18 AM * Caridad oDrsey - 11/24/2023 2:37 PM CDT Preadmission Screening Submitter InformationPerson Being ReferredMedical InformationADL'Nassau University Medical CenterSubmitResults Results Thank you for submitting a referral [...] help, contact the Senior LinkAge Line at [phone] or click to contact us. Print this page You have successfully submitted the preadmission screening (PAS) to the Senior LinkAge Line on: Created On 11/24/2023 2:25 PM Your confirmation number is: [id number] Results Level of Care: Based on the information you provided, it appears this person meets level of care for purposes of [place] payment. OBRA: It appears this person does not need an OBRA Level II assessment. Submitter Information Form Type PAS Submitter First and Last Name Caridad Dorsey Direct Agency [facility] [address] [place] [address] [place] [address] Is your Agency outside [place]? Person Being Admitted to Nursing Facility Legal first name Matt Last name Stephanie Date of 1980 Age 43 Gender Male Marital Status N= Never Race A = B = Black or N = or [place]an [place] P = [place] or W = White U = Unable to Determine Ethnicity Not / Currently living with: 01 Living Alone Planned living with 04 Living in Congregate Setting Housing Type Home or apartment, including assisted living (09) Mailing Address [address] [place] [address] [place] [facility] [place] [address] [facility] Medical Information Reason for nursing facility admission: [...] facility the person will admit to?Yes Provider [facility] Nursing Facility Nursing Facility Service Type Long-Term [address] If your provider is not listed [...] follow-up. Did not ask * 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, LOCATOR, BOTTLING SUPERVISOR - 11/24/2023 1:43 PM CDT SURGERY PROGRESS NOTE--HOSPICE DIRECTOR Stephanie Low : 1980 Sex: male SIGNIFICANT [...] for discharge. Planning on discharge today to [facility] pending insurance approval. PLAN: Neuro/Pain Control: [...] Trend WBCs and fever Skin/Wounds: Perineal debridement abqf-ofr-ja-dry dressings with Vashe; Left hallux amputation -Betadine with 4 x 4 DVT prophylaxis: Lovenox and SCDs Weight Bearing: Heel touch WB in surgical shoe. On the LLW Activity: Ad celia PT/OT: Appreciate Recs Disposition: [facility] on 11/24/23 pending insurance authorization 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 APRN, PATRICIA, 11/24/2023 1:43 PM [facility] Department of Surgery Pager: via telemediq I have spent 30 minutes with this patient today in which greater than 50% of this time was spent incounseling/coordination of care regarding in patient care, review of imaging/labs, chart review andconsultant recommendations. Dictation Disclaimer: Some notes are completed with voice-recognition dictation software. Errors are generally corrected in real time. Please contact me via [employer] staff message if you note any errors [...] () of patient departure: 11/25/2023@1030 Destination: [facility] Type of ride: [employer] #conformation [id number] Transportation vendor of ride (choose one below):* [facility] [phone] If this ride needs to be [...] Clinical Coordinators will be informed via a TelGreatistq page. PCS form was completed in Progress [...] sex Attending provider: Zac Churchill MD Insurance: [facility] Secondary insurance: [employer] Height: Height: 180.3 cm (5' [...] mgmt/ADL: 18 minutes Chayo Townsend OTR/L Pager: [employer] OT Department Problem: Loss of Dickinson With ADLs, Risk for Goal: Will complete lower body dressing Description: Patient will complete lower body dressing with Modified Dickinson (6). Outcome: In progress Goal: Will toilet self Description: Patient will toilet self with Modified Dickinson (6). Outcome: In progress * Lior Azul [...] Selected Services Address Phone Fax Patient Preferred [facility] Selected [facility] [address] [facility] [phone] -- Internal Comment last updated by Lior Azul 11/24/2023 0805 Pending prior auth. Lior Azul, 11/24/2023 8:05 AM Received VM saying they would accept . LVM saying we would accept bed.. Caridad Dorsey, 11/24/2023 7:50 AM Admissions is currently reviewing .Caridad Dorsey, 11/23/2023 9:31 AM No bd available until next week. Caridad Dorsey, 11/18/2023 8:34 AM [facility] ([facility]) Accepted N/A [address] [facility] [phone] -- Internal Comment last updated by Lior Azul 11/24/2023 0840 They can offer us a bed here but we already found one in [place]. Lior Azul, 11/24/2023 8:40 AM [facility] Pending - Request Sent N/A [address] [facility] [address] [phone] -- Internal Comment last updated by Caridad Dorsey 11/23/2023 0937 LVM for admissions .Caridad Dorsey, 11/23/2023 9:37 AM [facility] Declined Current smoking, Bariatric N/A [address] [facility] [address] [phone] -- [facility], A [facility] Declined Distance N/A [address] [address] [phone] -- Internal Comment last updated by Lior Azul 11/22/2023 1219 This is too far from where patient lives. Lior Azul, 11/22/2023 12:18 PM Sent e mail to Allie .Caridad Dorsey, 11/22/2023 8:10 AM LVM for admissions .Caridad Dorsey, 11/19/2023 7:44 AM Sent email to Missy.Caridad Dorsey, 11/17/2023 2:24 PM [facility] Declined No Contract with Patient's Insurance Carrier N/A [address] [place] [address] [phone] -- [facility] Declined Current smoking, Ac[place] [address] [facility] [address] [phone] -- Internal Comment last updated by Caridad Dorsey 11/18/2023 0831 LVM for admissions.Caridad Dorsey, 11/18/2023 8:31 AM [facility], [facility] Facility Declined Bed not available N/A [address] [facility] [address] [phone] -- Internal Comment last updated by Lior Azul 11/23/2023 1418 Looking for a bed in the [facility] .Caridad Dorsey, 11/23/2023 9:35 AM LVM for admissions.Caridad Dorsey, 11/19/2023 8:17 AM LVM for admissions.Caridad Dorsey, 11/18/2023 8:37 AM [facility] Declined Bed not available N/A [address] [facility] [address] [phone] -- The [facility], A [facility] Declined Bed not available N/A [address] [facility] [address] [phone] -- [facility], A [facility] Declined Bed not available N/A [address] [facility] [address] [phone] -- Home Medical Care No active coordination [...] Trend WBCs and fever Skin/Wounds: Perineal debridement ajef-dcg-bu-dry dressings with Vashe; Left hallux amputation -Betadine with 4 x 4 DVT prophylaxis: Lovenox and SCDs Weight Bearing: Heel touch WB in surgical shoe. On the LLW Activity: Ad celia PT/OT: Appreciate Recs Disposition: Postacute placement recommended-care management and social work looking for a TCU. 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 APRN, PATRICIA, 11/23/2023 3:06 PM [facility] Department of Surgery Pager: via telemediq I have spent 30 minutes with this patient today in which greater than 50% of this time was spent incounseling/coordination of care regarding in patient care, review of imaging/labs, chart review andconsultant recommendations. Dictation Disclaimer: Some notes are completed with voice-recognition dictation software. Errors are generally corrected in real time. Please contact me via [employer] staff message if you note any errors [...] Selected Services Address Phone Fax Patient Preferred [facility] Pending - Request Sent N/A [address] [facility] [phone] -- Internal Comment last updated by Caridad Dorsey 11/23/2023 0931 Admissions is currently reviewing .Caridad Dorsey, 11/23/2023 9:31 AM No bd available until next week. Caridad Dorsey, 11/18/2023 8:34 AM [facility], A [facility] Facility Pending - Request Sent N/A [address] [facility] [address] [phone] -- Internal Comment last updated by Lior Azul 11/23/2023 1415 Looking for a bed in the [facility] .Caridad Dorsey, 11/23/2023 9:35 AM LVM for admissions.Caridad Dorsey, 11/19/2023 8:17 AM LVM for admissions.Caridad Dorsey, 11/18/2023 8:37 AM [facility] Pending - Request Sent N/A [address] [facility] [address] [phone] -- Internal Comment last updated by Caridad Dorsey 11/23/2023 0937 LVM for admissions .Caridad Dorsey, 11/23/2023 9:37 AM [facility] Declined Current smoking, Bariatric N/A [address] [facility] [address] [phone] -- [facility], A [facility] Facility Declined Distance N/A [address] [address] [phone] -- Internal Comment last updated by Lior Azul 11/22/2023 1218 This is too far from where patient lives. Lior Azul, 11/22/2023 12:18 PM Sent e mail to Allie .Caridad Dorsey, 11/22/2023 8:10 AM LVM for admissions .Caridad Dorsey, 11/19/2023 7:44 AM Sent email to Missy.Caridad Dorsey, 11/17/2023 2:24 PM [facility] Declined No Contract with Patient's Insurance Carrier N/A [address] [place] [id number] [phone] -- [facility] Declined Current [place], [place] [address] [facility] [address] [phone] -- Internal Comment last updated by Caridad Dorsey 11/18/2023 0831 LVM for admissions.Caridad Dorsey, 11/18/2023 8:31 AM [facility] Declined Bed not available N/A [address] [facility] [address] [phone] -- The [facility] Declined Bed not available N/A [address] [facility] [phone] -- The [facility], A [facility] Declined Bed not available N/A [address] [facility] [address] [phone] -- Home Medical Care No active coordination exists for this encounter. * Caridad Dorsey - 11/23/2023 9:42 AM CDT Continued Care and Services - Admitted Since 11/10/2023 Destination Service Provider Request Status Selected Services Address Phone Fax Patient Preferred [facility] Pending - Request Sent N/A [address] [facility] [phone] -- Internal Comment last updated by Caridad Dorsey 11/23/2023 0931 Admissions is currently reviewing .Caridad Dorsey, 11/23/2023 9:31 AM No bd available until next week. Caridad Dorsey, 11/18/2023 8:34 AM [facility], A [facility] Pending - Request Sent N/A [address] [facility] [address] [phone] -- Internal Comment last updated by Caridad Dorsey 11/23/2023 0935 Looking for a bed in the [facility] .Caridad Dorsey, 11/23/2023 9:35 AM LVM for admissions.Caridad Dorsey, 11/19/2023 8:17 AM LVM for admissions.Caridad Dorsey, 11/18/2023 8:37 AM [facility], [facility] Pending - Request Sent N/A [address] [facility] [phone] -- [facility] Pending - Request Sent N/A [address] [facility] [address] [phone] -- Internal Comment last updated by Caridad Dorsey 11/23/2023 0937 LVM for admissions .Caridad Dorsey, 11/23/2023 9:37 AM [facility] Declined Current smoking, Bariatric N/A [address] [facility] [address] [phone] -- The [place], A [facility] Declined Distance N/A [address] [address] [phone] -- Internal Comment last updated by Lior Azul 11/22/2023 1218 This is too far from where patient lives. Lior Azul, 11/22/2023 12:18 PM Sent e mail to Allie .Caridad Dorsey, 11/22/2023 8:10 AM LVM for admissions .Caridad Dorsey, 11/19/2023 7:44 AM Sent email to Missy.Caridad Dorsey, 11/17/2023 2:24 PM [facility] Declined No Contract with Patient's Insurance Carrier N/A [address] [place] [address] [phone] -- [facility] Declined Current smoking, [place] [address] [facility] [address] [phone] -- Internal Comment last updated by Caridad Dorsey 11/18/2023 0831 LVM for admissions.Caridad Dosrey, 11/18/2023 8:31 AM [facility] Declined Bed not available N/A [address] [facility] [address] [phone] -- The [facility], [facility] Declined Bed not available N/A [address] [facility] [address] [phone] -- Home Medical Care No active coordination [...] mgmt/ADL: 13 minutes Chayo Townsend OTR/L Pager: [employer] OT Department Problem: Loss of Dickinson With ADLs, Risk for Goal: Will complete lower body dressing Description: Patient will complete lower body dressing with Modified Dickinson (6). Outcome: In progress Goal: Will toilet self Description: Patient will toilet self with Modified Dickinson (6). Outcome: In progress * KassyArdenABHINAV - [...] gait with or without AD, static/dynamic balance. ENGINEERING TECHNICAL SPECIALIST Appropriate: Yes Arden Elena PTA 11/22/2023 Pager: [employer] PT Dept Problem: Decreased Transfer Skills Goal: Patient will transfer sit to/from stand Description: Patient will transfer sit to/from stand while Heel touch WB on L LE in post-op shoe with (6) Modified Dickinson in order to mobilize in home by [...] 12:09 PM CDTSummary: DC Planning DC Planning [facility] SABINE Hartman - O: [phone] Long-Term RN is calling her asking her when [...] agrees with sending referrals to SNFs around [place]. He wants CC to let sister know [...] bedtime. -Continue Amlodipine 10mg Daily - Resume ENGINEERING TECHNICAL SPECIALIST losartan 50mg PO Daily when Cr is closer to baseline (1.0) Acute Kidney Injury Monitor urine output and BMP closely. Paranoid schizophrenia - continue group captain escitalopram 20mg qhs, trazodone 50mg qhs, prazosin 1mg qhs (ordered) - receives outpatient paliperidone (Invega) IM every 4 weeks for schizophrenia at [facility] [place], unclear when last dose was. Would give [...] the patient on the date of the story writer's note. I discussed with the story writer of the note and agree with their findings and plan documented in the story writer's note from above. Any revisions by [...] bedtime. -Continue Amlodipine 10mg Daily - Resume ENGINEERING TECHNICAL SPECIALIST losartan 50mg PO Daily when Cr is closer to baseline (1.0) Acute Kidney Injury Monitor urine output and BMP closely. Paranoid schizophrenia - continue group captain escitalopram 20mg qhs, trazodone 50mg qhs, prazosin 1mg qhs (ordered) - receives outpatient paliperidone (Invega) IM every 4 weeks for schizophrenia at [facility], unclear when last dose was. Would give [...] on 11/10/2023 as a transfer from [facility] for emergent surgical debridement for demar's gangrene. [...] are above goal here (FPG goal <150). ENGINEERING TECHNICAL SPECIALIST lantus 30 units BID, lispro 10 units TID AC, metformin 500mg BID. A1c 6.8% on 07/27/23. Complications include h/o diabetes related infections. Hold ENGINEERING TECHNICAL SPECIALIST metformin while admitted. Continue statin. 11/12 got 25u lantus (<0.2/kg) and 35u aspart. Likely needs increase in insulin dosing but also use caution with impaired renal clearance / worsening renal function and this can contribute to hypoglycemia. Serum glucose levels are slightly improved on ENGINEERING TECHNICAL SPECIALIST regimen of 30 U daily Lantus. Serum [...] by facility provider. Paranoid schizophrenia - restarted ENGINEERING TECHNICAL SPECIALIST meds (escitalopram 20mg qhs, trazodone 50mg qhs, [...] outpatient on 11/25 or 2 Resume patient's ENGINEERING TECHNICAL SPECIALIST losartan 50mg PO daily when Cr is closer to baseline (approx 1.0) Strict I/O, monitor UOP. Avoid nephrotoxins (IV contrast, NSAIDs), renal dosing of meds Medicine service will sign off. Please page Hospitalist Consult A on Kili for any further issues or questions. SUBJECTIVE/Events of Past 24 Hours: Hospital Day: 11 Mr Low feels well today. Denies any symptoms. Pain controlled. He believes postoperative dressing changes can be done by his current correction; I encouraged him to discuss that with his primary team and case technician. Amenable to plan, looking forward to leaving [...] standpoint. Patient follows with Dr Hayden in [facility] and would prefer to follow up with him upon discharge. We are happy to schedule anappointment with patient if he wishes to follow up with our team. Please page hydrogenation operator resident with questions. Interval History Patient was [...] and BMP closely. Paranoid schizophrenia - continue group captain escitalopram 20mg qhs, trazodone 50mg qhs, prazosin 1mg qhs (ordered) - receives outpatient paliperidone (Invega) IM every 4 weeks for schizophrenia at [facility], unclear when last dose was. Would give [...] are above goal here (FPG goal <150). ENGINEERING TECHNICAL SPECIALIST lantus 30 units BID, lispro 10 units TID AC, metformin 500mg BID. A1c 6.8% on 07/27/23. Complications include h/o diabetes related infections. Hold ENGINEERING TECHNICAL SPECIALIST metformin while admitted. Continue statin. 11/12 got 25u lantus (<0.2/kg) and 35u aspart. Likely needs increase in insulin dosing but also use caution with impaired renal clearance / worsening renal function and this can contribute to hypoglycemia. Serum glucose levels are slightly improved on ENGINEERING TECHNICAL SPECIALIST regimen of 30 U daily Lantus. Serum glucose levels better controlled today and more consistent in the 126 - 165 range. Continue current dosing for now with monitoring of serum glucose levels. Paranoid schizophrenia - restarted ENGINEERING TECHNICAL SPECIALIST meds (escitalopram 20mg qhs, trazodone 50mg qhs, prazosin 1mg qhs). Given paliperidone (Invega) IM on 11/12/23 (due every 4 weeks for schizophrenia) Tobacco use - offer nicotine patches, gum, lozenges while inpatient H/o TBI Obesity RECOMMENDATIONS 11/15/23 Continue Lantus to 30 U qd Continuing amlodipine, monitoring BP to determine if second agent needed with recent improvement Resume patient's ENGINEERING TECHNICAL SPECIALIST losartan 50mg PO daily when Cr is closer to baseline (likely ~1.0) Strict I/O, monitor UOP. Avoid nephrotoxins (IV contrast, NSAIDs), renal dosing of meds Medicine service will sign off tomorrow 11/20 if clinical stability/improvement continues. Please page Hospitalist Consult A on Kili for any further issues or questions. SUBJECTIVE/Events [...] today 11/19. Labs reviewed Scar Leyva MD [facility] Medicine * Scar Leyva MD - 11/19/2023 3:51 PM CDT MEDICINE CONSULT FOLLOW-UP- STAFF Matt Low : 1980 Sex: male Patient Summary: Matt Low is a 43 y.o. male with PMH of T2DM, prior TMA or right foot, HTN, paranoid schizophrenia, situs inversus, tobacco use, obesity, admitted on 11/10/2023 as a transfer from [facility] for emergent surgical debridement for demar's gangrene. [...] are above goal here (FPG goal <150). ENGINEERING TECHNICAL SPECIALIST lantus 30 units BID, lispro 10 units TID AC, metformin 500mg BID. A1c 6.8% on 07/27/23. Complications include h/o diabetes related infections. Hold ENGINEERING TECHNICAL SPECIALIST metformin while admitted. Continue statin. 11/12 got 25u lantus (<0.2/kg) and 35u aspart. Likely needs increase in insulin dosing but also use caution with impaired renal clearance / worsening renal function and this can contribute to hypoglycemia. Serum glucose levels are slightly improved on ENGINEERING TECHNICAL SPECIALIST regimen of 30 U daily Lantus. One reading of 69 yesterday - unclear if patient had any symptoms. Continue current dosing for now with monitoring of serum glucose levels. Paranoid schizophrenia - restarted ENGINEERING TECHNICAL SPECIALIST meds (escitalopram 20mg qhs, trazodone 50mg qhs, prazosin 1mg qhs). Given paliperidone (Invega) IM on 11/12/23 (due every 4 weeks for schizophrenia) Tobacco use - offer nicotine patches, gum, lozenges while inpatient H/o TBI Obesity RECOMMENDATIONS 11/15/23 Continue Lantus to 30 U qd Continuing amlodipine, monitoring BP to determine if second agent needed with recent improvement Resume patient's ENGINEERING TECHNICAL SPECIALIST losartan 50mg PO daily when Cr is closer to baseline (likely ~1.0) Strict I/O, monitor UOP. Avoid nephrotoxins (IV contrast, NSAIDs), renal dosing of meds Medicine will continue to follow. Please page Hospitalist Consult A on Kili for any further issues or questions. SUBJECTIVE/Events [...] today 11/18. Labs reviewed Scar Leyva MD [facility] * PhillipKenrick Speedy Taylor, PT - 11/19/2023 1:21 PM CDT Physical Therapy Patient not seen today d/t prioritisation/time constraints. Kenrick Fisher, PT License #[id number] PT Tel #: [phone] On AGC or Anonymess * Nicola Vasquez MD - 11/19/2023 11:54 [...] 2/2 uncontrolled Td2m. Paranoid schizophrenia - continue group captain escitalopram 20mg qhs, trazodone 50mg qhs, prazosin 1mg qhs (ordered) - receives outpatient paliperidone (Invega) IM every 4 weeks for schizophrenia at [facility], unclear when last dose was. 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 male pmhx of T2DM with prior right toe amputations [facility] for[facility]'s gangrene, s/p I&D x [...] represent source control of lower extremity process. Edmar's gangrene is typically treated for total course [...] 1 of 2 Imaging results: Reviewed in [facility] Gulshan José MD ID fellow, PGY-4 Discussed [...] RN - 11/19/2023 10:39 AM CDT 11/19/23 [facility] Rapid Rounds Attendance Charge nurse;manager line;workers compensation adjuster Expected Discharge Disposition SNF (TCU) Today we [...] care/Home mgmt/ADL: 23 minutes EDWIN Alvarado/Brian Pager: [facility] OT Department Problem: Loss of Dickinson With ADLs, Risk for Goal: Will complete lower body dressing Description: Patient will complete lower body dressing with Modified Dickinson (6). Outcome: In progress Goal: Will toilet self Description: Patient will toilet self with Modified Dickinson (6). Outcome: In progress * Paula Black [...] standpoint. Patient follows with Dr Hayden in [facility] and would prefer to follow up with him upon discharge. We are happy to schedule anappointment with patient if he wishes to follow up with our team. Please page hydrogenation operator resident with questions. Interval History Patient was [...] care/Home mgmt/ADL: 35 minutes EDWIN Alvarado/Brian Pager: [employer] OT Department Problem: Loss of Dickinson With ADLs, Risk for Goal: Will complete lower body dressing Description: Patient will complete lower body dressing with Modified Dickinson (6). Outcome: In progress Goal: Will toilet self Description: Patient will toilet self with Modified Dickinson (6). Outcome: In progress * Kenrick Fisher Chi, PT - 11/18/2023 3:23 PM CDT Problem: Decreased Transfer Skills Goal: Patient will transfer sit to/from stand Description: Patient will transfer sit to/from stand while Heel touch WB on L LE in post-op shoe with (6) Modified Dickinson in order to mobilize in home by [...] up. Reconfirmed that he lives in an [facility] a 1 floor building. Has his own room w a toilet inside. He shares bathing facilities wother residents in the house. He eats his meals and snacks in the dining room. He has NO stairs to negotiate. O:Sports Psychologist Used: None needed Mental Status Mental Status: [...] remain heel touch WB on L LE. ENGINEERING TECHNICAL SPECIALIST Appropriate: Yes Kenrick Fisher, PT 11/18/2023 Pager: [...] are above goal here (FPG goal <150). ENGINEERING TECHNICAL SPECIALIST lantus 30 units BID, lispro 10 units TID AC, metformin 500mg BID. A1c 6.8% on 07/27/23. Complications include h/o diabetes related infections. Hold ENGINEERING TECHNICAL SPECIALIST metformin while admitted. Continue statin. 11/12 got 25u lantus (<0.2/kg) and 35u aspart. Likely needs increase in insulin dosing but also use caution with impaired renal clearance / worsening renal function and this can contribute to hypoglycemia. Serum glucose levels are slightly improved today with increase in Lantus to 28 U; increasing today to ENGINEERING TECHNICAL SPECIALIST dose of 30 U Lantus daily. Paranoid schizophrenia - restarted ENGINEERING TECHNICAL SPECIALIST meds (escitalopram 20mg qhs, trazodone 50mg qhs, prazosin 1mg qhs). Given paliperidone (Invega) IM on 11/12/23 (due every 4 weeks for schizophrenia) Tobacco use - offer nicotine patches, gum, lozenges while inpatient H/o TBI Obesity RECOMMENDATIONS 11/15/23 Increased Lantus to 30 U qd Continuing amlodipine, carvedilol discontinued as patient noted some dizziness and BP now near goal. Resume patient's ENGINEERING TECHNICAL SPECIALIST losartan 50mg PO daily when Cr is [...] home tomorrow, or potentially to a facility (?[facility]?) for extra cares and assistance OBJECTIVE: [...] today 11/17. Labs reviewed Scar Leyva MD [facility] * Jabari Colby RN - [...] Services Address Phone Fax Patient Preferred [facility] Pending - Request Sent N/A [address] [address] [phone] -- Internal Comment last updated by Caridad Dorsey 11/19/2023 0745 LVM for admissions .Caridad Dorsey, 11/19/2023 7:44 AM Sent email to Missy.Caridad Dorsey, 11/17/2023 2:24 PM Nena Ernandez, [facility] Pending - Request Sent N/A [address] [facility] [address] [phone] -- Internal Comment last updated by Caridad Dorsey 11/19/2023 0818 LVM for admissions.Caridad Dorsey, 11/19/2023 8:17 AM LVM for admissions.Caridad Dorsey, 11/18/2023 8:37 AM [facility] Declined N/A [address] [facility] [address] [phone] -- [facility] Declined No Contract with Patient's Insurance Carrier N/A [address] [place] [address] [phone] -- [facility] Declined Current smoking, Acuity too high N/A [address] [facility] [address] [phone] -- Internal Comment last updated by Caridad Dorsey 11/18/2023 0831 LVM for admissions.Caridad Dorsey, 11/18/2023 8:31 AM [facility] Declined Bed not available N/A [address] [facility] [phone] -- Internal Comment last updated by Caridad Dorsey 11/18/2023 0834 No bd available until next week. Caridad Dorsey, 11/18/2023 8:34 AM [facility] Declined Bed not available N/A [address] [facility] [address] [phone] -- Home Medical Care No active coordination exists for this encounter. * Aretha Damon MD - 11/18/2023 8:26 AM CDT ID PROGRESS NOTE Matt Low 1980 Male [id number] ASSESSMENT: # Necrotizing fascitis/Demar's gangrene s/p debridement # Left hallux gangrene s/p amputation # Type II diabetes mellitus 43 y.o. male pmhx of T2DM with prior right toe amputations transferred from [facility] forurnier's gangrene, s/p I&D x [...] 11/17/[address] Mullen-operative note available in [facility] Seen this a.m. and was quite sleepy. [...] 1 of 2 Imaging results: Reviewed in [facility] Gulshan José MD, 11/18/2023 8:26 AM Discussed [...] standpoint. Patient follows with Dr Hayden in [facility] and would prefer to follow up with him upon discharge. We are happy to schedule anappointment with patient if he wishes to follow up with our team. Please page hydrogenation operator resident with questions. Patient was discussed with hydrogenation operator staff, Interval History Patient was seen and [...] Abdomen soft, non-tender, non-distended. Labs / Imaging: [facility] Lab Results Component Value Date/Time NA 137 [...] urine output closely. Paranoid schizophrenia - continue group captain escitalopram 20mg qhs, trazodone 50mg qhs, prazosin 1mg qhs (ordered) - receives outpatient paliperidone (Invega) IM every 4 weeks for schizophrenia at [facility], unclear when last dose was. Would give [...] on 11/10/2023 as a transfer from [facility] for emergent surgical debridement for demar's gangrene. [...] renal dysfunction, though UOP is acceptable. Holding ENGINEERING TECHNICAL SPECIALIST losartan 50mg daily. Started amlodipine 10 mg [...] are above goal here (FPG goal <150). ENGINEERING TECHNICAL SPECIALIST lantus 30 units BID, lispro 10 units TID AC, metformin 500mg BID. A1c 6.8% on 07/27/23. Complications include h/o diabetes related infections. Hold ENGINEERING TECHNICAL SPECIALIST metformin while admitted. Continue statin. 11/12 got [...] and diet improve. Paranoid schizophrenia - restarted ENGINEERING TECHNICAL SPECIALIST meds (escitalopram 20mg qhs, trazodone 50mg qhs, prazosin 1mg qhs). Given paliperidone (Invega) IM on 11/12/23 (due every 4 weeks for schizophrenia) Tobacco use - offer nicotine patches, gum, lozenges while inpatient H/o TBI Obesity RECOMMENDATIONS 11/15/23 Continue Lantus 28 U daily for now; may need to continue titration as diet and renal function improve Began carvedilol and amlodipine as above Resume patient's ENGINEERING TECHNICAL SPECIALIST losartan 50mg PO daily when Cr is closer to baseline (likely ~1.0) Switching to IV PRN hydralazine for more aggressive BP control Strict I/O, monitor UOP. Avoid nephrotoxins (IV contrast, NSAIDs), renal dosing of meds Medicine will continue to follow. Please page Hospitalist Consult A on Kili for any further issues or questions. SUBJECTIVE/Events [...] today, and will check back tomorrow. Shannan Pratida OTR/Brian Pager: [phone] * Mabel Mathews RN - 11/17/2023 11:27 AM CDT TRANSFER IN NOTE D: Patient transferred in to STNU 2 from PACU at 1100. Patient condition on arrival: Stable, a/o X4, VSS, on RA, . Patient Belonging 11/10/2023 1440 Reason for Inventory: ED/APS Admission Patient or family informed of Patient Valuables and Belongings Policy (#[id number]): Due to [place] condition[place] [facility] [place] and [...] CDT 11/17/23 1034 Rapid Rounds Attendance Physician;Charge nurse;manager line;workers compensation adjuster;Bedside nurse Expected Discharge Disposition SNF (TCU for wound care) Today we still await: Procedure (Comment) (toe amputation today) Case Management Discharge Milestones Documentation CM Assessment Completed? Yes Patient/Family agree w/DC plan? Yes Transportation Plan WC/Taxi/Stretcher Prior Auth/Pre-Admit Screen (!) Not completed 11/17/23 1034 Rapid Rounds Attendance Physician;Charge nurse;manager line;workers compensation adjuster;Bedside nurse Expected Discharge Disposition SNF (TCU for wound care) Today we still await: Procedure (Comment) (toe amputation today) Case Management Discharge Milestones Documentation CM Assessment Completed? Yes Patient/Family agree w/DC plan? Yes Transportation Plan WC/Taxi/Stretcher Prior Auth/Pre-Admit Screen (!) Not completed Pt will DC to TCU, as his correction cannot do the daily dressing changes to [...] discharge. Patient follows with Dr Hayden in [facility] CHIEF COMPLAINT: Immediate postop HISTORY OF [...] urine output closely. Paranoid schizophrenia - continue group captain escitalopram 20mg qhs, trazodone 50mg qhs, prazosin 1mg qhs (ordered) - receives outpatient paliperidone (Invega) IM every 4 weeks for schizophrenia at [facility], unclear when last dose was. Would give [...] Fisher, PT License #[id number] PT Tel #: [phone] On AGC or Anonymess * Nico Hogue MD - 11/16/2023 9:49 AM CDT SURGERY PROGRESS NOTE--PGY1 Matt Lwo : 1980 Sex: male SIGNIFICANT EVENTS IN [...] Actinomyces species Medicine consult (11/14): Resume patient's ENGINEERING TECHNICAL SPECIALIST losartan 50mg PO daily when Cr is [...] urine output closely. Paranoid schizophrenia - continue group captain escitalopram 20mg qhs, trazodone 50mg qhs, prazosin 1mg qhs (ordered) - receives outpatient paliperidone (Invega) IM every 4 weeks for schizophrenia at [facility], unclear when last dose was. Would give [...] are above goal here (FPG goal <150). ENGINEERING TECHNICAL SPECIALIST lantus 30 units BID, lispro 10 units TID AC, metformin 500mg BID. A1c 6.8% on 07/27/23. Complications include h/o diabetes related infections. Hold ENGINEERING TECHNICAL SPECIALIST metformin while admitted. Continue statin. 11/12 got [...] renal dysfunction, though UOP is acceptable. Holding ENGINEERING TECHNICAL SPECIALIST losartan 50mg daily. Agree with prn hydralazine but would changeto PO. Could start new agent (such as amlodipine) but patient should ultimately resume ARB once renal function is improved Paranoid schizophrenia - restarted ENGINEERING TECHNICAL SPECIALIST meds (escitalopram 20mg qhs, trazodone 50mg qhs, prazosin 1mg qhs). Given paliperidone (Invega) IM on 11/12/23 (due every 4 weeks for schizophrenia) Tobacco use - offer nicotine patches, gum, lozenges while inpatient H/o TBI Obesity RECOMMENDATIONS 11/15/23 Continue Lantus 28 U daily for now; may need to continue titration as diet and Resume patient's ENGINEERING TECHNICAL SPECIALIST losartan 50mg PO daily when Cr is [...] follow. Please page Hospitalist Consult A on Kili for any further issues or questions. SUBJECTIVE/Events [...] Recommendations: Post-acute placement recommended (versus back to [facility] with recommended assist- unclear if he could [...] provide clear picture of assistance available at [facility]- however, per chart review only receives assistance [...] Pager: Lisa OT Department Problem: Loss of Dickinson With ADLs, Risk for Goal: Will complete lower body dressing Description: Patient will complete lower body dressing with Modified Dickinson (6). 11/15/2023 1400 by Chayo Townsend OTR/L Outcome: In progress 11/15/2023 1357 by Chayo Townsend OTR/L Outcome: In progress Goal: Will toilet self Description: Patient will toilet self with Modified Dickinson (6). 11/15/2023 1400 by Chayo Townsend OTR/L Outcome: In progress 11/15/2023 1357 by Chayo Townsend OTR/Brian Outcome: In progress * Kenrick Fisher Chi, PT - 11/15/2023 11:23 AM CDT Images from the original note were not included. Problem: Decreased Transfer Skills Goal: Patient will transfer sit to/from stand Description: Patient will transfer sit to/from stand with (6) Modified Dickinson in order to mobilize in home by 11/28/23. Outcome: In progress Problem: Decreased Ambulatory Skills Goal: Improve gait Description: Ambulate 100 meters using No assistive devices with (6) Modified Dickinson in orderto mobilize in home and community [...] transfer supine to/from sit with (6) Modified Dickinson in order to mobilize in/out of bed [...] sometimes does not do stairs, at his [facility]. Ambulated independently without an AD. Said hiswalking [...] kind of help he gets/can get from [facility] staff and if he needs to do [...] and isn't able to get help from [facility] staff for mobility, then recommend he go [...] vs try no AD. Try stairs eventually? ENGINEERING TECHNICAL SPECIALIST Appropriate: Yes Kenrick Fisher, PT 11/15/2023 Pager: [employer] PT Dept * Jay Ibanez MD - [...] Intake/Output Summary (Last 24 hours) at 11/15/2023 0901 Last data filed at 11/15/2023 0640 Gross [...] Actinomyces species Medicine consult (11/14): Resume patient's ENGINEERING TECHNICAL SPECIALIST losartan 50mg PO daily when Cr is [...] urine output closely. Paranoid schizophrenia - continue group captain escitalopram 20mg qhs, trazodone 50mg qhs, prazosin 1mg qhs (ordered) - receives outpatient paliperidone (Invega) IM every 4 weeks for schizophrenia at [facility], unclear when last dose was. Would give [...] Crawford LGSW - 11/15/2023 9:39 AM CDT Executive Relations Specialist Progress Note Spoke to SABINE Hartman at [facility], where patient resides. Informed her pt will likely be ready for discharge towards the end of the week per MDR. Asked if they are able to assist with daily wound care. Unfortunately facility cannot help with this. The facility helps with med management, meals, housekeeping, and laundry. May have to explore options for home health or TCU for woundcare. [facility] - [phone] opt 3. Dominga Crawford LGSW, 11/15/2023 2:59 [...] pt may be able to return to correction given participation with PT on 11/13 but [...] on 11/10/2023 as a transfer from [facility] for emergent surgical debridement for demar's gangrene. [...] are above goal here (FPG goal <150). ENGINEERING TECHNICAL SPECIALIST lantus 30 units BID, lispro 10 units TID AC, metformin 500mg BID. A1c 6.8% on 07/27/23. Complications include h/o diabetes related infections. Hold ENGINEERING TECHNICAL SPECIALIST metformin while admitted. Continue statin. 11/12 got 25u lantus (<0.2/kg) and 35u aspart. Likely needs increase in insulin dosing but also use caution with impaired renal clearance / worsening renal function and this can contribute to hypoglycemia. HTN - above goal overnight. ARB is being held. Also may be hypervolemic given renal dysfunction, though UOP is acceptable. Holding ENGINEERING TECHNICAL SPECIALIST losartan 50mg daily. Agree with prn hydralazine but would changeto PO. Could start new agent (such as amlodipine) but patient should ultimately resume ARB once renal function is improved Paranoid schizophrenia - restarted ENGINEERING TECHNICAL SPECIALIST meds (escitalopram 20mg qhs, trazodone 50mg qhs, prazosin 1mg qhs). Given paliperidone (Invega) IM on 11/12/23 (due every 4 weeks for schizophrenia) Tobacco use - offer nicotine patches, gum, lozenges while inpatient H/o TBI Obesity RECOMMENDATIONS 11/15/23 Increase lantus to 28 units q24h Resume patient's ENGINEERING TECHNICAL SPECIALIST losartan 50mg PO daily when Cr is [...] - 11/14/2023 2:55 PM CDT SURGERY PROGRESS NOTE--HOSPICE DIRECTOR Matt M Devante : 1980 Sex: male [...] urine output closely. Paranoid schizophrenia - continue group captain escitalopram 20mg qhs, trazodone 50mg qhs, prazosin 1mg qhs (ordered) - receives outpatient paliperidone (Invega) IM every 4 weeks for schizophrenia at [facility], unclear when last dose was. Would give [...] assist Disposition: CHRIS Cordero Ma MS3 11/14/2023 [facility] Department of Surgery Pager: via telemediq RESIDENT [...] on 11/10/2023 as a transfer from [facility] for emergent surgical debridement for demar's gangrene. [...] are above goal here (FPG goal <150). ENGINEERING TECHNICAL SPECIALIST lantus 30 units BID, lispro 10 units TID AC, metformin 500mg BID. A1c 6.8% on 07/27/23. Complications include h/o diabetes related infections. Hold ENGINEERING TECHNICAL SPECIALIST metformin while admitted. Continue statin. 11/12 got 25u lantus (<0.2/kg) and 35u aspart. Likely needs increase in insulin dosing but also use caution with impaired renal clearance / worsening renal function and this can contribute to hypoglycemia. HTN - above goal overnight. ARB is being held. Also may be hypervolemic given renal dysfunction, though UOP is acceptable. Holding ENGINEERING TECHNICAL SPECIALIST losartan 50mg daily. Agree with prn hydralazine but would changeto PO. Could start new agent (such as amlodipine) but patient should ultimately resume ARB once renal function is improved Paranoid schizophrenia - restarted ENGINEERING TECHNICAL SPECIALIST meds (escitalopram 20mg qhs, trazodone 50mg qhs, [...] recent) Autumn Lamar PharmD 11/13/2023 15:25 Pager: ([facility]) * Nico Hogue MD - 11/13/2023 8:25 [...] epidermidis Actinomyces species 11/10/2023171211/12/2023 1417 ANAEROBE CULTURE [[id number]] (Abnormal) Tissue from Perineal 2:Perineal tissue Preliminary result Component Value Preliminary Report Positive Culture Many mixed anaerobes present. Culture in progress. POS 11/10/2023 17111/12/2023 1441 TISSUE CULTURE:INCLUDES GRAM STAIN [[id number]] (Abnormal) Tissue from Perineal 2:Perineal tissue Preliminary [...] in clusters. POS 11/10/2023171111/12/2023 1416 ANAEROBE CULTURE [[id number]] (Abnormal) Swab from Perineal 1: Perineal tissue swab Preliminary result Component Value Preliminary Report Moderate Anaerococcus vaginalis isolated. Culture in progress. POS Organism ANAEROCOCCUS VAGINALIS POS 11/10/2023171111/12/2023 1534 WOUND CULTURE:GRAM STAIN OPTIONAL [[id number]] (Abnormal) Swab from Perineal 1: Perineal tissue [...] NPO with excellent blood sugarcontrol. - hold group captain metformin while admitted, resume on discharge [...] hypertension while here - agree with holding group captain antihypertensives (losartan 50mg daily, , consider restarting closer to DC - restart group captain rosuvastatin 10mg qHS Paranoid schizophrenia - restart group captain escitalopram 20mg qhs, trazodone 50mg qhs, prazosin 1mg qhs (ordered) - receives outpatient paliperidone (Invega) IM every 4 weeks for schizophrenia at [facility], unclear when last dose was. Would give [...] RECOMMENDATIONS: Demar's Gangrene Necrotizing fasciitis Transferred from [facility] for scrotal swelling, pain, concern [...] NPO with excellent blood sugarcontrol. - hold group captain metformin while admitted, resume on discharge [...] hypertension while here - agree with holding group captain antihypertensives (losartan 50mg daily, , consider restarting closer to DC - restart group captain rosuvastatin 10mg qHS Paranoid schizophrenia - restart group captain escitalopram 20mg qhs, trazodone 50mg qhs, prazosin 1mg qhs (ordered) - receives outpatient paliperidone (Invega) IM every 4 weeks for schizophrenia at [facility], unclear when last dose was. Would give dose here if due and if available on formulary. Tobacco use - offer nicotine patches, gum, lozenges while inpatient - cessation counseling as able (pt unable to engage today) H/o TBI Obesity PLAN: Neuro/Pain Control: Multimodal Scheduled: Tylenol, Gabapentin, cyclobenzaprine PRN: Hydromorphone CV: Monitor blood pressure and pulse and intervene as needed. Restart group captain rosuvastatin 10mg qHS Pulm: Encourage incentive [...] Disposition: Nico Murray MD, 11/13/2023 8:25 AM [facility] Department of Surgery Pager: via telemediq Surgery [...] Type 2 DM with neuropathy, retinopathy - ENGINEERING TECHNICAL SPECIALIST lantus 30 units BID, lispro 10 units TID AC, [id number] BID. A1c 6.8% on 07/27/23. Complications include h/o diabetes related infections. Hold ENGINEERING TECHNICAL SPECIALIST metformin while admitted. Continue statin. HTN - mostly at goal off antihypertensives. Holding ENGINEERING TECHNICAL SPECIALIST losartan 50mg daily Paranoid schizophrenia - restarted ENGINEERING TECHNICAL SPECIALIST meds (escitalopram 20mg qhs, trazodone 50mg qhs, [...] follow. Please page Hospitalist Consult A on Kili for any further issues or questions. SUBJECTIVE/Events [...] - 11/12/2023 1:00 PM CDT 11/12/23 1254 Sports Psychologist Used. Sports Psychologist Used None needed (interview conducted with [facility] staff) Social Information Living Situation [facility] Facility Admitted From hospital (Admitted from [facility] Name of facility [facility] Patient medically appropriate to transfer back to outside hospital? No Patient Identified Support System [facility] staff Services Receiving SPECIAL NEEDS TUTOR / Skilled Services;Case Management;Waivered services (see comment) Complex Medical Needs Other (see comment) Transportation Used for Discharge wound care Safety Concerns None Behavioral Health Concerns None Patient Family Goals Patient's Discharge Goal back to [place] Family's Discharge Goal no family Plan/Interventions Expected Discharge Disposition Long-Term Was Patient Choice Provided? No Who was Choice Provided to? Other (comment) (pt will return to ENGINEERING TECHNICAL SPECIALIST facility when medically stable) Patient Information Verification Verified demographic information, including SSN, Next of Kin, and Guardianship Yes Verified PCP Yes If post-acute placement is needed, have vaccination status needs been addressed? Yes Pt admitted from [facility] after transfer to there from correction for treatment of Demar's gangrene of perineal area * Nico Hogue MD - 11/12/2023 8:02 AM CDT SURGERY PROGRESS NOTE--HOSPICE DIRECTOR Matt Low : 1980 Sex: male SIGNIFICANT [...] Disposition: Nico Murray MD, 11/12/2023 8:03 AM [facility] Department of Surgery Pager: via telemediq Surgery [...] Comments: RN: Gloria Velez RN Extension #: [phone] * Robert Kruse MDIV - 11/11/2023 1:43 PM CDT SPIRITUAL CARE VISIT SUMMARY Matt Low : 1980 Sex: male LOS: 1 day Reason for visit: Referral Assessment: Pt/family uncertain/anxious/frustrated;Pt/family coping/relieved Intervention: Compassionate support;Facilitate communication;Lead/support spiritual rituals Outcome: Situation assessed;Gratitude expressed;Ritual provided Notes: I met with Matt at bedside during rounds. Matt shared that he wanted a prayer for healing and episcopal of his health which I offered as requested. He had no other support needs at this time. Plan: Spiritual Care Team is available to support patient and family as needed via number [phone]. Robert Kruse MDIV, 11/11/2023 1:43 PM Number: [phone] * Hannah Boland RT - 11/11/2023 12:40 [...] male D: Matt Low was admitted to [facility] from PACU at 0600 for Fourniers [...] informed of Patient Valuables and Belongings Policy (#[id number]): Due to patient condition, [facility] [place] will inventory and secure patient valuables Items Needing Securement: Cell phone Cell Phone Secured?: Yes Cell Phone Visually Damaged: Yes Patient Belongings: Clothing Clothing Comments: shirt, 1 shoe, 1 sock, * Gracia Tirado MDIV - 11/10/2023 3:26 PM CDT Tailing Machine Operator Stabilization Room Note Matt Low : 1980 Sex: male LOS: 0 days Initial Description: Matt Low with history of gangrene. Pt was responding appropriately to questions. Patient and Family Context: No family present. Pt came from a facility in [place]. Plan: Spiritual Care Team is available to support patient and family as needed via number [phone]. Gracia Tirado MDIV, 11/10/2023 3:27 PM Number: [phone] * Camilla Treviño, PharmD - 11/10/2023 2:38 [...] for 2 days. 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 CT at OSH showed gas in perineal [...] the patient on the date of the story writer's note. I discussed with the story writer of the note and agree with their findings and plan documented in the story writer's note from above. Any revisions by [...] medications. Assessment: Pertinent points to note: -- ENGINEERING TECHNICAL SPECIALIST losartan, metformin and ibuprofen all discontinued due to ongoing acute kidney injury. I have reviewed the patient's medications for discharge and have discussed the necessary changes with the provider. Changes have been made and medication list updated and complete. Please page with any questions. Gala Salinas PharmD 11/24/2023 14:22 For questions regarding this note, please contact pharmacist on service at PharmD STN (Twenga) [phone]. If no response within needed timeframe, please contact central pharmacy via phone at [phone]. Planned discharge medications are: Medication List Medications [...] 2 Diabetes Reduced from twice daily dosing ENGINEERING TECHNICAL SPECIALIST, per Medicine recommendations. insulin LISPRO 100 UNIT/ML Kwikpen Commonly known as: HumaLOG KwikPen Inject 6 UNITS subcutaneously 3 times daily before meals. Reduced from 10 units per dose ENGINEERING TECHNICAL SPECIALIST, per Medicine recommendations. Invega Sustenna 156 MG/ML [...] follow. Patient follows with Dr Hayden in [place] ENGINEERING TECHNICAL SPECIALIST Please page hydrogenation operator resident with questions. Patient was seen with hydrogenation operator staff, Dr. Black CHIEF COMPLAINT: Left hallux wound HISTORY OF PRESENT ILLNESS: Matt Low is a 43 y.o. male presenting with left hallux necrosis. [place] [facility] [place] concern for foreigners [...] No primary care provider on file. Samina Singlteary DPM, 11/16/2023 1:47 PM Podiatric Surgery Resident [...] 74.09 Activity Intolerance Z 73.89 PRECAUTIONS Falls Sports Psychologist Used: None needed ACTIVITY Up ad Celia [...] Type 2 DM with neuropathy, retinopathy - ENGINEERING TECHNICAL SPECIALIST lantus 30 units BID, lispro 10 units TID AC, [id number] BID. A1c 6.8% on 07/27/23. Complications include h/o diabetes related infections. Hold ENGINEERING TECHNICAL SPECIALIST metformin while admitted. Continue statin. HTN - mostly at goal off antihypertensives. Holding ENGINEERING TECHNICAL SPECIALIST losartan 50mg daily Paranoid schizophrenia - restarted ENGINEERING TECHNICAL SPECIALIST meds (escitalopram 20mg qhs, trazodone 50mg qhs, prazosin 1mg qhs). Given paliperidone (Invega) IM on 11/12/23 (due every 4 weeks for schizophrenia) Tobacco use - offer nicotine patches, gum, lozenges while inpatient Medical History No past medical history on file. SOCIAL HISTORY Information gathered from: Patient Home: correction in [place] Prior level of function: independent Baseline Ambulation: [...] Oriented X 3, Alert, and Cooperative, thought [facility] in [facility] Follows Direction: Yes, 1step OBJECTIVE Initial patient [...] notes. A&Ox3, but thought at hospital in [facility]. Anticipate pt will be able to [...] when ready, stairs as able, standing balance. ENGINEERING TECHNICAL SPECIALIST Appropriate: Yes Participated in goal setting and treatment planning: Patient Agrees with goals and treatment plan: Patient - Yes. Che Garcia, PT 11/14/2023 Pager: [employer] PT Department * Guru Franco MD - 11/13/2023 1:14 PM CDTAssociated Order(s): CONSULT TO INFECTIOUS DISEASE ID-2 NEW CONSULT NOTE Matt Low 1980 male [id number] REASON FOR CONSULT: I was asked to see Matt Low by Zac Churchill regarding Demar's gangrene. ASSESSMENT: 43 y.o. male pmhx of T2DM with prior right toe amputations transferred from [facility] forurnier's gangrene, s/p I&D x [...] with prior right toe amputations transferred from [facility] forsotal swelling, pain, concern for Demar's gangrene, also found to have swelling and darkening of left toe consistent with gangrene. Febrile on arrival to 40.1 C, no fever since. WBC 21 on arrival, decreasing. Now s/p I&D of perineal nec fasc 11/09, sharp excisional debridement. Return [facility] on 11/10. Per OR note: Sharp excisional [...] tissue fungal cx Imaging results: Reviewed in [facility], Guru Swan MD, 11/13/2023 1:14 PM [...] date) Patient is living in a/an : correction Prior Level of Function: ADLs/IADLs: Received assistance [...] to month and year; not to place [facility]; intermittently follows 1 steps [...] prior right toe amputations transferred from [facility] with Demar's gangrene admitted on 11/09 for emergent surgical debridement. S/p perineal debridement (11/09 and 11/10). At baseline pt from correction. Pt unable to provide any social history [...] Eval: 18 minutes Therapist: SADE Alvarado Pager: [employer] Occupational Therapy Department * Sophie Barajas MD - 11/12/2023 10:07 AM CDTAssociated Order(s): CONSULT TO MEDICINE SERVICES INTERNAL MEDICINE CONSULT- STAFF Matt Low : 1980 Sex: male Reason for Consult: Diabetes management, antibiotic selection IMPRESSION AND RECOMMENDATIONS: Demar's Gangrene Necrotizing fasciitis Transferred from [facility] for scrotal swelling, pain, concern [...] NPO with excellent blood sugarcontrol. - hold group captain metformin while admitted, resume on discharge [...] hypertension while here - agree with holding group captain antihypertensives (losartan 50mg daily, , consider restarting closer to DC - restart group captain rosuvastatin 10mg qHS Paranoid schizophrenia - restart group captain escitalopram 20mg qhs, trazodone 50mg qhs, prazosin 1mg qhs (ordered) - receives outpatient paliperidone (Invega) IM every 4 weeks for schizophrenia at [place], unclear when last dose was. Would give [...] long enough to participate indiscussion. Transferred from [facility] for scrotal pain and swelling, [...] including pre-visit review of separately obtained history, [id number] interaction performing medically appropriate physical exam, patientcounseling/education, [...] 3:41 PM CDT Operative Report - PGY2 [facility] Matt Anne : 1980 Sex: M Procedure: [...] 6:07 PM CDT OPERATIVE REPORT - PGY5 [facility] Matt Low : 1980 Sex: male Procedure: [...] PM CDT Pt BIBA as transfer from [place]. 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 Pt given Ertapenem 1gm and Insulin 10 units ENGINEERING TECHNICAL SPECIALIST. BS 400 at outside hospital. Pt is [...] Physical Therapy Inpatient Discharge Summary Stephanie Low [id number] PT Discharge Recommendations DC Recommendations: Post-acute placement [...] LE in post-op shoe with (6) Modified Dickinson in order to mobilize in home by [...] Therapist: Kenrick Fisher PT Date: 11/24/2023 Pager: [employer] PT Department * Discharge non-MD/non-MIRI Summaries - Lior Azul - 11/25/2023 7:36 AM CDT Summary: DC to SNF Care Coordination Discharge Note Expected DC Date: 11/25/23 Expected DC Time: 13h30 Final Discharge Destination: Selected Continued Care - Admitted Since 11/10/2023 Destination Coordination complete. Service Provider Selected Services Address Phone Fax Patient Preferred [facility] [address] [phone] -- Summary: Insurance approved Patient has been accepted to continue rehabing at the aforementioned post acute facility. Patient is on board with plan. CC spoke with patient in person in the room Web Operations Manager also confirmed with Minnie REGALADO at . Also, DC summary faxed to [phone], via [employer]. WC ride has been ordered. GOLF STARTER [employer] RANGER ([employer] Secretary) will schedule. Check [id number] for confirmation. Medical team is aware. They will work writing DC orders. CC sent DC orders to SNF by [employer] fax. Medical team is aware any controlled substances must be printed and signed to be sent in physical form to the TCU. PLEASE MAKE SURE RX IS COMPLETE. MAKE SURE QUANTITY IS ADDED. Also, PSC/CLINICAL LAB ASSISTANT/RN will fax it to TCU olga (this is required so in case of pain during transport, pain control can be addressed) Bedside nurse: please confirm this is done. A [employer] thread has been started. CC will continue to follow until DC. Please use [employer]enga for any further questions. * Nursing Assessment [...] Townsend, OTR/L - 11/24/2023 12:59 PM CDT [facility] Occupational Therapy Discharge Summary Stephanie Low 11/24/2023 [...] subacute rehab. Patient Name: Stephanie Low MR#: [id number] Date of : 1980 Age: 43 y.o. [...] (11/13/231099) Patient is living in a/an : correction (11/13/23 1100) Prior Level of Function (ENGINEERING TECHNICAL SPECIALIST): ADLs/IADLs: Received assistance from staff at residence [...] RN - 11/23/2023 4:39 PM CDT Per DIRECTOR OF GRADUATE ADMISSIONS no longer meets IP criteria, documentation in [...] Toe Head to Toe Assessment Shift Summary [id number] Pt is a/o X4 and can make [...] Cardiac Assessment Within Defined Limits except for: Eligibility Analyst - remote telemetry Respiratory Within defined limits [...] Limits except for: Heart sounds: S1, S2 Eligibility Analyst - remote telemetry Comments: Consistently sustaining SBP [...] Toe Head to Toe Assessment Shift Summary [id number] Pt is a/o X4 and can make [...] Cardiac Assessment Within Defined Limits except for: Eligibility Analyst - remote telemetry Respiratory Within defined limits [...] Palomo DPM - 11/17/2023 9:26 AM CDT [facility] [...] Patient to the OR at 0800. This story writer called to notify MIDDLE SCHOOL COUNSELORevent staff of hypertension. Pt had left the room prior to [facility] notifying this story writer of BP of 222/101. Vitals: 11/17/23 [...] wants to go outside to smoke, and story writer encouraged the patient not to go [...] Cardiac Assessment Within Defined Limits except for: Eligibility Analyst - remote telemetry Respiratory Assessment Within Defined [...] Cardiac Assessment Within Defined Limits except for: Eligibility Analyst - remote telemetry Respiratory Assessment Within Defined [...] Defined Limits except for: Chest Pain: No Eligibility Analyst - remote telemetry Pacemaker: Pacemaker: No Respiratory [...] Cardiac Assessment Within Defined Limits except for: Eligibility Analyst - remote telemetry Comments: NSR Respiratory Within [...] Cardiac Assessment Within Defined Limits except for: Eligibility Analyst - remote telemetry Respiratory Assessment Within Defined [...] Cardiac: Assessment Within Defined Limits except for: Eligibility Analyst - remote telemetry Respiratory: Assessment Within Defined [...] Note - PGY-1 Matt Low 43 y.o. [id number] Paged at 03:34 on 11/14/23 for elevated [...] for SBP > 180 - Potentially resume ENGINEERING TECHNICAL SPECIALIST losartan per primary team in the AM [...] Cardiac Assessment Within Defined Limits except for: Eligibility Analyst - remote telemetry Respiratory Assessment Within Defined [...] Cardiac Assessment Within Defined Limits except for: Eligibility Analyst - remote telemetry Pacemaker: Pacemaker: No Respiratory [...] Cardiac Assessment Within Defined Limits except for: Eligibility Analyst - remote telemetry Respiratory Assessment Within Defined [...] Cardiac Assessment Within Defined Limits except for: Eligibility Analyst - remote telemetry Respiratory Assessment Within Defined [...] Cardiac Assessment Within Defined Limits except for: Eligibility Analyst - remote telemetry Respiratory Assessment Within Defined [...] Nichols MD - 11/11/2023 3:13 PM CDT [facility] [...] Osborn MD - 11/10/2023 5:07 PM CDT [facility] [...] at time of review in ED - group captain abx administered * ED Stabilization Note - Allyssa Drummond MD - 11/10/2023 2:43 PM CDT Emergency Department Stabilization Room Note [facility] Arrival Date and Time: 11/10/2023 2:28 PM MEDICAL TEAM Attending: MD MARCELLUS Grullon Resident: Allyssa Drummond MD RN: Enmanuel HCA: Doreen Consultants: General surgery PRE-HOSPITAL EVENTS & HISTORY Matt Low is a 43 y.o. 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 Patient has a history of type 2 diabetes on 3 times daily 10 units long-acting insulin, situs inversus, and TBI several years ago for which he lives in a correction. 2 days ago he noticed pain in his perineum, it has gotten worse over the past several days. His girlfriend urged him to go to the hospital today and the physicians at [place] were concerned for Demar'sgangrene and transferred him [...] CRP 30, procal 0.83, WBC 20 at [place]. We will draw an ESR and our [...] Glucose 140(H) 70 - 100 mg/dL [facility] - POINT OF CARE Blood 11/25/2023 6:03 AM CDT Jessica Grullon MD LABORATORY [facility] [address] [place] [phone], [place] * (ABNORMAL) POC GLUCOSE (11/24/2023 8:47 PM CDT) POC Glucose 156(H) 70 - 100 mg/dL [facility] POINT [facility] Blood 11/24/2023 8:47 PM CDT Jessica Grullon MD LABORATORY Performing Organization Address City/[facility] Co de Phone Number [facility] [address] [place] [phone], [place] * (ABNORMAL) POC GLUCOSE (11/24/2023 4:56 PM CDT) POC Glucose 177(H) 70 - 100 mg/dL [facility] Blood 11/24/2023 4:56 PM CDT Jessica Grullon MD LABORATORY Performing Organization Address City/[facility] Co de Phone Number [facility] [address] [place] [phone], [place] * (ABNORMAL) POC GLUCOSE (11/24/2023 11:22 AM CDT) POC Glucose 146(H) 70 - 100 mg/dL [facility] POINT OF CARE Blood 11/24/2023 11:2 2 AM CDT Jessica Grullon MD LABORATORY Performing Organization Address City/[facility]/ZIP Co de Phone Number [facility] [address] [place] [phone], [place] * (ABNORMAL) POC GLUCOSE (11/24/2023 6:03 AM CDT) POC Glucose 147(H) 70 - 100 mg/dL [facility] - POINT OF CARE Blood 11/24/2023 6:03 AM CDT Jessica Grullon MD LABORATORY [facility] POINT OF CARE [address] [place] [address], [place] * (ABNORMAL) POC GLUCOSE (11/23/2023 7:52 PM CDT) POC Glucose 160(H) 70 - 100 mg/dL [facility] POINT OF CARE Blood 11/23/2023 7:52 PM CDT Jessica Grullon MD LABORATORY Performing Organization Address [facility] Co de Phone Number [facility] [address] [place] [address], [place] * (ABNORMAL) POC GLUCOSE (11/23/2023 4:18 PM CDT) POC Glucose 156(H) 70 - 100 mg/dL [facility] POINT OF CARE Blood 11/23/2023 4:18 PM CDT Jessica Grullon MD LABORATORY Performing Organization Address City/[facility] Co de Phone Number [facility] [address] [place] [address], [place] * (ABNORMAL) POC GLUCOSE (11/23/2023 11:13 AM CDT) POC Glucose 182(H) 70 - 100 mg/dL [facility] POINT OF CARE Blood 11/23/2023 11:1 3 AM CDT Jessica Grullon MD LABORATORY Performing Organization Address City/[facility] Co de Phone Number [facility] [address] [place] [address], [place] * (ABNORMAL) PANEL BASIC METABOLIC (BMP) (11/23/2023 8:31 AM CDT) CO2 24 22 - 30 mmol/L [facility] Glucose 192(H) 70 - 100 mg/dL [facility] BUN 20 6 - 20 mg/dL [facility] Creatinine 1.96(H) 0.70 - 1.25 mg/dL [facility] Calcium 8.5(L) 8.6 - 10.0 mg/dL [facility] Sodium 137 135 - 148 mmol/L [facility] Potassium 5.1 3.5 - 5.3 mmol/L [facility] Chloride 103 92 - 108 mmol/L [facility] eGFR (2020 CKD-EPI) 42(L) >=60 ml/min/1.7 3m2 [facility] Comment: The estimated glomerular filtration rate (eGFR) was calculated using the CKD-EPI 2020 creatinine equation, which does not include race as a factor. This equation is validated in individuals 18 years of age and older, and eGFR is normalized to a body surface area of 1.73m^2. AnGap 10 8 - 16 mmol/L [facility] Blood 11/23/2023 8:31 AM CDT 11/23/2023 9:12 AM CDT Zac Churchill MD LABORATORY [facility] [address] [address] * (ABNORMAL) CBC WITH PLATELET (11/23/2023 8:31 AM CDT) WBC 13.36(H) 4.00 - 10.00 k/cmm [facility] RBC 3.57(L) 4.60 - 6.00 m/cmm [facility] Hgb 10.0(L) 13.1 - 17.5 g/dL [facility] Hematocrit 31.5(L) 40.0 - 51.0 % [facility] MCV 88.2 80.0 - 100.0 fL [facility] MCH 28.0 25.0 - 32.0 pg [facility] MCHC 31.7 31.0 - 36.0 g/dL [facility] RDW 14.4 11.5 - 14.5 % [facility] Plt 492(H) 150 - 400 k/cmm [facility] MPV 9.1 6.5 - 12.5 fL [facility] Blood 11/23/2023 8:31 AM CDT 11/23/2023 9:11 AM CDT Zac Churchill MD LABORATORY [facility] [address] [place] [address] * (ABNORMAL) POC GLUCOSE (11/23/2023 6:43 AM CDT) POC Glucose 121(H) 70 - 100 mg/dL [facility] POINT OF CARE Blood 11/23/2023 6:43 AM CDT Jessica Grullon MD LABORATORY Performing Organization Address City/[facility] Co de Phone Number [place] [phone], [place] * POC GLUCOSE (11/22/2023 8:28 PM CDT) POC Glucose 95 70 - 100 mg/dL [facility] Blood 11/22/2023 8:28 PM CDT Jessica Grullon MD LABORATORY Performing Organization Address City/[facility]/ZIP Co de Phone Number [facility] POINT [place] [phone], [place] * (ABNORMAL) POC GLUCOSE (11/22/2023 4:10 PM CDT) POC Glucose 176(H) 70 - 100 mg/dL [facility] POINT OF CARE Blood 11/22/2023 4:10 PM CDT Jessica Grullon MD LABORATORY Performing Organization Address City/[facility] Co de Phone Number [place] [phone], [place] * (ABNORMAL) POC GLUCOSE (11/22/2023 11:21 AM CDT) [facility] POC Glucose 201(H) 70 - 100 mg/dL [facility] POINT OF CARE Blood 11/22/2023 11:2 1 AM CDT Jessica Grullon MD LABORATORY [facility] - POINT OF CARE [address] [place] [address], * (ABNORMAL) CYSTATIN C (11/22/2023 9:23 AM CDT) [facility] Cystatin C 1.43(H) 0.61 - 0.95 mg/L [facility] eGFR by Cystatin C 51(L) >=60 ml/min/1.7 3m2 [facility] Comment: Estimated GFR calculated using the CKD-EPI Cystatin C (2012) equation. Stage ? Description ?eGFR Range ??1.......Normal or increased eGFR.......90 or Greater ??2.......Mildly decreased eGFR..........60-89 ??3.......Moderately decreased eGFR......30-59 ??4.......Severely decreased eGFR........15-29 ??5.......Kidney Failure.................Less than 15 Blood 11/22/2023 9:23 AM CDT 11/22/2023 2:05 PM CDT Zac Churchill MD LABORATORY [facility] [address] [place] [phone] * (ABNORMAL) PANEL BASIC METABOLIC (BMP) (11/22/2023 9:23 AM CDT) Pathologist [facility] Sodium 136 135 - 148 mmol/L [facility] Potassium 5.1 3.5 - 5.3 mmol/L [facility] Chloride 102 92 - 108 mmol/L [facility] CO2 24 22 - 30 mmol/L [facility] AnGap 10 8 - 16 mmol/L [facility] Glucose 254(H) 70 - 100 mg/dL [facility] BUN 20 6 - 20 mg/dL [facility] Creatinine 2.00(H) 0.70 - 1.25 mg/dL [facility] Calcium 8.6 8.6 - 10.0 mg/dL [facility] eGFR (2020 CKD-EPI) 41(L) >=60 ml/min/1.7 3m2 [facility] Comment: The estimated glomerular filtration rate (eGFR) was calculated using the CKD-EPI 2020 creatinine equation, which does not include race as a factor. This equation is validated in individuals 18 years of age and older, and eGFR is normalized to a body surface area of 1.73m^2. Blood 11/22/2023 9:23 AM CDT 11/22/2023 10:28 AM CDT Zac Churchill MD LABORATORY [facility] [address] [address] * (ABNORMAL) CBC WITH PLATELET (11/22/2023 9:23 AM CDT) WBC 12.35(H) 4.00 - 10.00 k/cmm [facility] RBC 3.47(L) 4.60 - 6.00 m/cmm [facility] Hgb 9.8(L) 13.1 - 17.5 g/dL [facility] Hematocrit 30.8(L) 40.0 - 51.0 % [facility] MCV 88.8 80.0 - 100.0 fL [facility] MCH 28.2 25.0 - 32.0 pg [facility] MCHC 31.8 31.0 - 36.0 g/dL [facility] RDW 14.5 11.5 - 14.5 % [facility] Plt 530(H) 150 - 400 k/cmm [facility] MPV 9.3 6.5 - 12.5 fL [facility] Blood 11/22/2023 9:23 AM CDT 11/22/2023 10:28 AM CDT Zac Churchill MD LABORATORY [facility] [address] [place] [address] * (ABNORMAL) POC GLUCOSE (11/22/2023 6:55 AM CDT) POC Glucose 136(H) 70 - 100 mg/dL [facility] Blood 11/22/2023 6:55 AM CDT Jessica Grullon MD LABORATORY Performing Organization Address City/[facility] Co de Phone Number [facility] [address] [place], [place] [phone], [place] * (ABNORMAL) POC GLUCOSE (11/21/2023 8:38 PM CDT) POC Glucose 139(H) 70 - 100 mg/dL [facility] Blood 11/21/2023 8:38 PM CDT Jessica Grullon MD LABORATORY Performing Organization Address City/[facility] Co de Phone Number [facility] [address] [place] [phone], [place] * (ABNORMAL) POC GLUCOSE (11/21/2023 4:13 PM CDT) POC Glucose 141(H) 70 - 100 mg/dL [facility] Blood 11/21/2023 4:13 PM CDT Jessica Grullon MD LABORATORY Performing Organization Address City/[facility]/ZIP Co de Phone Number [facility] [address] [place] [phone], [place] * (ABNORMAL) POC GLUCOSE (11/21/2023 11:12 AM CDT) Pathologist [facility] POC Glucose 177(H) 70 - 100 mg/dL [facility] Blood 11/21/2023 11:1 2 AM CDT Jessica Grullon MD LABORATORY Performing Organization Address [facility] Co de Phone Number [facility] [address] [place] [phone], * (ABNORMAL) POC GLUCOSE (11/21/2023 6:08 AM CDT) [facility] POC Glucose 131(H) 70 - 100 mg/dL [facility] Blood 11/21/2023 6:08 AM CDT Jessica Grullon MD LABORATORY Performing Organization Address [facility] de Phone Number [facility] [address] [place] [phone], [place] * (ABNORMAL) PANEL BASIC METABOLIC (BMP) (11/21/2023 4:52 AM CDT) [facility] CO2 27 22 - 30 mmol/L [facility] Glucose 128(H) 70 - 100 mg/dL [facility] BUN 21(H) 6 - 20 mg/dL [facility] Creatinine 2.07(H) 0.70 - 1.25 mg/dL [facility] Calcium 8.4(L) 8.6 - 10.0 mg/dL [facility] Sodium 138 135 - 148 mmol/L [facility] Potassium 4.8 3.5 - 5.3 mmol/L [facility] Chloride 103 92 - 108 mmol/L [facility] eGFR (2020 CKD-EPI) 40(L) >=60 ml/min/1.7 3m2 [facility] Comment: The estimated glomerular filtration rate (eGFR) was calculated using the CKD-EPI 2020 creatinine equation, which does not include race as a factor. This equation is validated in individuals 18 years of age and older, and eGFR is normalized to a body surface area of 1.73m^2. AnGap 8 8 - 16 mmol/L [facility] Blood 11/21/2023 4:52 AM CDT 11/21/2023 5:27 AM CDT Zac Churchill MD LABORATORY Performing Organization Address [facility] Co de Phone Number [facility] [address] [address] * (ABNORMAL) CBC WITH PLATELET (11/21/2023 4:52 AM CDT) WBC 11.48(H) 4.00 - 10.00 k/cmm [facility] RBC 3.21(L) 4.60 - 6.00 m/cmm [facility] Hgb 9.0(L) 13.1 - 17.5 g/dL [facility] Hematocrit 28.7(L) 40.0 - 51.0 % [facility] MCV 89.4 80.0 - 100.0 fL [facility] MCH 28.0 25.0 - 32.0 pg [facility] MCHC 31.4 31.0 - 36.0 g/dL [facility] RDW 14.6(H) 11.5 - 14.5 % [facility] Plt 510(H) 150 - 400 k/cmm [facility] MPV 9.1 6.5 - 12.5 fL [facility] Blood 11/21/2023 4:52 AM CDT 11/21/2023 5:27 AM CDT Zac Churchill MD LABORATORY Performing Organization Address [facility] Co de Phone Number [facility] [address] [address] * (ABNORMAL) POC GLUCOSE (11/20/2023 9:13 PM CDT) POC Glucose 153(H) 70 - 100 mg/dL [facility] Blood 11/20/2023 9:13 PM CDT Jessica Grullon MD LABORATORY Performing Organization Address City/[facility]/ZIP Co de Phone Number [facility] [address] [place] [phone], * (ABNORMAL) POC GLUCOSE (11/20/2023 3:52 PM CDT) Pathologist [facility] POC Glucose 129(H) 70 - 100 mg/dL [facility] Blood 11/20/2023 3:52 PM CDT Jessica Grullon MD LABORATORY Performing Organization Address [facility] Co de Phone Number [facility] [address] [place] [address], [place] * (ABNORMAL) POC GLUCOSE (11/20/2023 11:16 AM CDT) [facility] POC Glucose 165(H) 70 - 100 mg/dL [facility] Blood 11/20/2023 11:1 6 AM CDT Jessica Grullon MD LABORATORY Performing Organization Address [facility] de Phone Number [facility] [address] [place] [phone], [place] * (ABNORMAL) PANEL BASIC METABOLIC (BMP) (11/20/2023 8:18 AM CDT) [facility] Sodium 140 135 - 148 mmol/L [facility] Potassium 4.9 3.5 - 5.3 mmol/L [facility] Chloride 105 92 - 108 mmol/L [facility] CO2 26 22 - 30 mmol/L [facility] AnGap 9 8 - 16 mmol/L [facility] Glucose 147(H) 70 - 100 mg/dL [facility] BUN 21(H) 6 - 20 mg/dL [facility] Creatinine 2.02(H) 0.70 - 1.25 mg/dL [facility] Calcium 8.4(L) 8.6 - 10.0 mg/dL [facility] eGFR (2020 CKD-EPI) 41(L) >=60 ml/min/1.7 3m2 [facility] Comment: The estimated [...] AM CDT 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 APRN, CNP LABORATORY [facility] [address] [phone] * (ABNORMAL) CBC WITH PLTS/AUTO DIFF (11/20/2023 8:18 AM CDT) WBC 10.90(H) 4.00 - 10.00 k/cmm [facility] RBC 3.17(L) 4.60 - 6.00 m/cmm [facility] Hgb 9.0(L) 13.1 - 17.5 g/dL [facility] Hematocrit 28.3(L) 40.0 - 51.0 % [facility] MCV 89.3 80.0 - 100.0 fL [facility] MCH 28.4 25.0 - 32.0 pg [facility] MCHC 31.8 31.0 - 36.0 g/dL [facility] RDW 14.3 11.5 - 14.5 % [facility] Plt 492(H) 150 - 400 k/cmm [facility] MPV 9.2 6.5 - 12.5 fL [facility] Automated Abs Neutrophil 6.51(H) 1.70 - 6.50 k/cmm [facility] Comment:Preliminary ANC, Fin al Result to Follow Abs Immature Granulocyte 0.57(H) 0.00 - 0.09 k/cmm [facility] Comment:The Immature Granulo cyte Absolute count contains metamyelocytes and myelocytes. Abs Neutrophil 6.51(H) 1.70 - 6.50 k/cmm [facility] Abs Lymphocyte 2.07 0.80 - 4.00 k/cmm [facility] Abs Monocyte 1.27(H) 0.20 - 1.00 k/cmm [facility] Abs Eosinophil 0.45 0.00 - 0.60 k/cmm [facility] Abs Basophil 0.03 0.00 - 0.20 k/cmm [facility] Blood 11/20/2023 8:18 AM CDT 11/20/2023 8:40 AM CDT 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 APRN, CNP LABORATORY [facility] [address] [place] [phone] * (ABNORMAL) POC GLUCOSE (11/20/2023 8:08 AM CDT) POC Glucose 133(H) 70 - 100 mg/dL [facility] Blood 11/20/2023 8:08 AM CDT Jessica Grullon MD LABORATORY Performing Organization Address City/[facility] Co de Phone Number [facility] [place] [phone], [place] * (ABNORMAL) POC GLUCOSE (11/20/2023 6:30 AM CDT) POC Glucose 153(H) 70 - 100 mg/dL [facility] Blood 11/20/2023 6:30 AM CDT Jessica Grullon MD LABORATORY Performing Organization Address City/[facility] Co de Phone Number [facility] POINT OF [address] [address], [place] * (ABNORMAL) POC GLUCOSE (11/19/2023 9:03 PM CDT) POC Glucose 148(H) 70 - 100 mg/dL [facility] Blood 11/19/2023 9:03 PM CDT Jessica Grullon MD LABORATORY Performing Organization Address City/[facility]/ZIP Co de Phone Number [facility] [address] [place] [phone], [place] * (ABNORMAL) POC GLUCOSE (11/19/2023 3:55 PM CDT) POC Glucose 126(H) 70 - 100 mg/dL [facility] Blood 11/19/2023 3:55 PM CDT Jessica Grullon MD LABORATORY Performing Organization Address City/[facility] Co de Phone Number [facility] [address] [place] [address], [place] * (ABNORMAL) POC GLUCOSE (11/19/2023 12:03 PM CDT) POC Glucose 147(H) 70 - 100 mg/dL [facility] Blood 11/19/2023 12:0 3 PM CDT Jessica Grullon MD LABORATORY Performing Organization Address City/[facility] Co de Phone Number [facility] [address] [place] [address], [place] * (ABNORMAL) POC GLUCOSE (11/19/2023 11:07 AM CDT) POC Glucose 159(H) 70 - 100 mg/dL [facility] Blood 11/19/2023 11:0 7 AM CDT Jessica Grullon MD LABORATORY Performing Organization Address City/[facility]/ZIP Co de Phone Number [facility] [address] [place] [address], [place] * (ABNORMAL) POC GLUCOSE (11/19/2023 8:51 AM CDT) POC Glucose 185(H) 70 - 100 mg/dL [facility] Blood 11/19/2023 8:51 AM CDT Jessica Grullon MD LABORATORY Performing Organization Address City/[facility]/ZIP Co de Phone Number [facility] [address] [place] [phone], * (ABNORMAL) PANEL BASIC METABOLIC (BMP) (11/19/2023 7:58 AM CDT) CO2 24 22 - 30 mmol/L [facility] Glucose 221(H) 70 - 100 mg/dL [facility] BUN 25(H) 6 - 20 mg/dL [facility] Creatinine 2.19(H) 0.70 - 1.25 mg/dL [facility] Calcium 7.8(L) 8.6 - 10.0 mg/dL [facility] Sodium 138 135 - 148 mmol/L [facility] Potassium 4.7 3.5 - 5.3 mmol/L [facility] Chloride 104 92 - 108 mmol/L [facility] eGFR (2020 CKD-EPI) 37(L) >=60 ml/min/1.7 3m2 [facility] Comment: The estimated glomerular filtration rate (eGFR) was calculated using the CKD-EPI 2020 creatinine equation, which does not include race as a factor. This equation is validated in individuals 18 years of age and older, and eGFR is normalized to a body surface area of 1.73m^2. AnGap 10 8 - 16 mmol/L [facility] Blood 11/19/2023 7:58 AM CDT 11/19/2023 8:34 AM CDT 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 APRN, CNP LABORATORY [facility] [address] [address] * (ABNORMAL) CBC WITH PLTS/AUTO DIFF (11/19/2023 7:58 AM CDT) WBC 10.66(H) 4.00 - 10.00 k/cmm [facility] RBC 3.14(L) 4.60 - 6.00 m/cmm [facility] Hgb 9.0(L) 13.1 - 17.5 g/dL [facility] Hematocrit 27.7(L) 40.0 - 51.0 % [facility] MCV 88.2 80.0 - 100.0 fL [facility] MCH 28.7 25.0 - 32.0 pg [facility] MCHC 32.5 31.0 - 36.0 g/dL [facility] RDW 14.3 11.5 - 14.5 % [facility] Plt 482(H) 150 - 400 k/cmm [facility] MPV 9.2 6.5 - 12.5 fL [facility] Automated Abs Neutrophil 6.41 1.70 - 6.50 k/cmm [facility] Comment:Preliminary ANC, Fin al Result to Follow Polychromasia Slight [facility] Abs Neutrophil 8.10(H) 1.70 - 6.50 k/cmm [facility] Abs Lymphocyte 1.07 0.80 - 4.00 k/cmm [facility] Abs Monocyte 0.85 0.20 - 1.00 k/cmm [facility] Abs Eosinophil 0.32 0.00 - 0.60 k/cmm [facility] Abs Basophil 0.11 0.00 - 0.20 k/cmm [facility] Abs Myelocyte 0.21(H) 0.00 - 0.00 k/cmm [facility] Blood 11/19/2023 7:58 AM CDT 11/19/2023 8:34 AM CDT 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 APRN, CNP LABORATORY [facility] [address] [address] * (ABNORMAL) POC GLUCOSE (11/19/2023 6:37 AM CDT) POC Glucose 212(H) 70 - 100 mg/dL [facility] Blood 11/19/2023 6:37 AM CDT Jessica Grullon MD LABORATORY [facility] [address] [place] [phone], * POC GLUCOSE (11/18/2023 8:54 PM CDT) POC Glucose 99 70 - 100 mg/dL [facility] Blood 11/18/2023 8:54 PM CDT Jessica Grullon MD LABORATORY [facility] [address] [place] [address], [place] * (ABNORMAL) POC GLUCOSE (11/18/2023 8:20 PM CDT) POC Glucose 69(L) 70 - 100 mg/dL [facility] Blood 11/18/2023 8:20 PM CDT Jessica Grullon MD LABORATORY Performing Organization Address City/[facility] Co de Phone Number [facility] [address] [place] [phone], [place] * (ABNORMAL) POC GLUCOSE (11/18/2023 4:37 PM CDT) POC Glucose 154(H) 70 - 100 mg/dL [facility] Blood 11/18/2023 4:37 PM CDT Jessica Grullon MD LABORATORY Performing Organization Address City/[facility] Co de Phone Number [facility] [address] [place] [address], [place] * (ABNORMAL) POC GLUCOSE (11/18/2023 11:03 AM CDT) POC Glucose 158(H) 70 - 100 mg/dL [facility] Blood 11/18/2023 11:0 3 AM CDT Jessica Grullon MD LABORATORY Performing Organization Address City/[facility]/ZIP Co de Phone Number [facility] [address] [place] [phone], [place] * (ABNORMAL) PANEL BASIC METABOLIC (BMP) (11/18/2023 9:02 AM CDT) CO2 24 22 - 30 mmol/L [facility] Glucose 180(H) 70 - 100 mg/dL [facility] BUN 27(H) 6 - 20 mg/dL [facility] Creatinine 2.17(H) 0.70 - 1.25 mg/dL [facility] Calcium 8.2(L) 8.6 - 10.0 mg/dL [facility] Sodium 137 135 - 148 mmol/L [facility] Potassium 4.5 3.5 - 5.3 mmol/L [facility] Chloride 104 92 - 108 mmol/L [facility] eGFR (2020 CKD-EPI) 37(L) >=60 ml/min/1.7 3m2 [facility] Comment: The estimated glomerular filtration rate (eGFR) was calculated using the CKD-EPI 2020 creatinine equation, which does not include race as a factor. This equation is validated in individuals 18 years of age and older, and eGFR is normalized to a body surface area of 1.73m^2. AnGap 9 8 - 16 mmol/L [facility] Blood 11/18/2023 9:02 AM CDT 11/18/2023 9:21 AM CDT 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 APRN, CNP LABORATORY [facility] [address] [address] * (ABNORMAL) CBC WITH PLTS/AUTO DIFF (11/18/2023 9:02 AM CDT) WBC 10.61(H) 4.00 - 10.00 k/cmm [facility] RBC 3.36(L) 4.60 - 6.00 m/cmm [facility] Hgb 9.4(L) 13.1 - 17.5 g/dL [facility] Hematocrit 29.5(L) 40.0 - 51.0 % [facility] MCV 87.8 80.0 - 100.0 fL [facility] MCH 28.0 25.0 - 32.0 pg [facility] MCHC 31.9 31.0 - 36.0 g/dL [facility] RDW 14.2 11.5 - 14.5 % [facility] Plt 495(H) 150 - 400 k/cmm [facility] MPV 9.2 6.5 - 12.5 fL [facility] Automated Abs Neutrophil 6.34 1.70 - 6.50 k/cmm [facility] Comment:Preliminary ANC, Fin al Result to Follow NUC RBC 1.0(H) 0.0 - 0.0 /100WBC [facility] Polychromasia Slight [facility] Abs Neutrophil 7.32(H) 1.70 - 6.50 k/cmm [facility] Abs Lymphocyte 2.23 0.80 - 4.00 k/cmm [facility] Abs Monocyte 0.85 0.20 - 1.00 k/cmm [facility] Abs Eosinophil 0.21 0.00 - 0.60 k/cmm [facility] Blood 11/18/2023 9:02 AM CDT 11/18/2023 9:21 AM CDT 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 APRN, CNP LABORATORY Performing Organization Address City/[facility]/ZIP Co de Phone Number [facility] [place] [address] * (ABNORMAL) POC GLUCOSE (11/18/2023 6:21 AM CDT) POC Glucose 194(H) 70 - 100 mg/dL [facility] POINT OF CARE Blood 11/18/2023 6:21 AM CDT Jessica Grullon MD LABORATORY Performing Organization Address City/[facility]/ZIP Co de Phone Number [facility] POINT OF CARE [address] [place] [address] * (ABNORMAL) POC GLUCOSE (11/17/2023 8:19 PM CDT) POC Glucose 143(H) 70 - 100 mg/dL [facility] POINT OF CARE Blood 11/17/2023 8:19 PM CDT Jessica Grullon MD LABORATORY [facility] POINT OF CARE [address] [place] [address], * (ABNORMAL) POC GLUCOSE (11/17/2023 4:40 PM CDT) [facility] POC Glucose 235(H) 70 - 100 mg/dL [facility] POINT OF CARE Blood 11/17/2023 4:40 PM CDT Jessica Grullon MD LABORATORY [facility] POINT OF CARE [address] [place] [address], [place] * (ABNORMAL) CBC WITH PLTS/AUTO DIFF (11/17/2023 2:35 PM CDT) [facility] WBC 11.70(H) 4.00 - 10.00 k/cmm [facility] RBC 3.37(L) 4.60 - 6.00 m/cmm [facility] Hgb 9.6(L) 13.1 - 17.5 g/dL [facility] Hematocrit 29.6(L) 40.0 - 51.0 % [facility] MCV 87.8 80.0 - 100.0 fL [facility] MCH 28.5 25.0 - 32.0 pg [facility] MCHC 32.4 31.0 - 36.0 g/dL [facility] RDW 14.2 11.5 - 14.5 % [facility] Plt 466(H) 150 - 400 k/cmm [facility] MPV 9.3 6.5 - 12.5 fL [facility] Automated Abs Neutrophil 7.44(H) 1.70 - 6.50 k/cmm [facility] Comment:Preliminary ANC, Fin al Result to Follow Abs Immature Granulocyte 0.52(H) 0.00 - 0.09 k/cmm [facility] Comment:The Immature Granulo cyte Absolute count contains metamyelocytes and myelocytes. Abs Neutrophil 7.44(H) 1.70 - 6.50 k/cmm [facility] Abs Lymphocyte 1.96 0.80 - 4.00 k/cmm [facility] Abs Monocyte 1.45(H) 0.20 - 1.00 k/cmm [facility] Abs Eosinophil 0.27 0.00 - 0.60 k/cmm [facility] Abs Basophil 0.06 0.00 - 0.20 k/cmm [facility] Polychromasia Slight [facility] Blood 11/17/2023 2:35 PM CDT 11/17/2023 2:57 PM CDT Scar Leyva MD LABORATORY Performing Organization Address [facility] Co de Phone Number [facility] [address] [address] * (ABNORMAL) PANEL BASIC METABOLIC (BMP) (11/17/2023 2:35 PM CDT) CO2 21(L) 22 - 30 mmol/L [facility] Glucose 252(H) 70 - 100 mg/dL [facility] BUN 30(H) 6 - 20 mg/dL [facility] Creatinine 2.27(H) 0.70 - 1.25 mg/dL [facility] Calcium 8.2(L) 8.6 - 10.0 mg/dL [facility] Sodium 137 135 - 148 mmol/L [facility] Potassium 4.3 3.5 - 5.3 mmol/L [facility] Chloride 104 92 - 108 mmol/L [facility] eGFR (2020 CKD-EPI) 35(L) >=60 ml/min/1.7 3m2 [facility] Comment: The estimated glomerular filtration rate (eGFR) was calculated using the CKD-EPI 2020 creatinine equation, which does not include race as a factor. This equation is validated in individuals 18 years of age and older, and eGFR is normalized to a body surface area of 1.73m^2. AnGap 12 8 - 16 mmol/L [facility] Blood 11/17/2023 2:35 PM CDT 11/17/2023 2:57 PM CDT Scar Leyva MD LABORATORY Performing Organization Address [facility]/ZIP Co de Phone Number [facility] [address] [address] * ANTI XA ASSAY LMW HEPARIN (11/17/2023 11:47 AM CDT) Anti XA LMW <0.04 IU/mL [facility] Comment: Anti Xa Assay LMW Heparin Therapeutic Ranges: 0.4-1.1 IU/mL for twice daily 1.0-2.0 IU/mL for once daily Blood 11/17/2023 11:4 7 AM CDT 11/17/2023 12:01 PM CDT Zac Churchill MD LABORATORY Performing Organization Address [facility]/ZIP Co de Phone Number [facility] [place] [address] * (ABNORMAL) POC GLUCOSE (11/17/2023 11:25 AM CDT) POC Glucose 190(H) 70 - 100 mg/dL [facility] Blood 11/17/2023 11:2 5 AM CDT Jessica Grullon MD LABORATORY Performing Organization Address [facility] de Phone Number [facility] [place] [address], * XR FOOT LEFT 3 V AP/OBL/LAT* [...] POC Glucose 176(H) 70 - 100 mg/dL [facility] Blood 11/17/2023 10:0 1 AM CDT Jessica Grullon MD LABORATORY [facility] [address] [place] [address], * (ABNORMAL) TISSUE CULTURE:INCLUDES GRAM STAIN (11/17/2023 9:35 AM CDT) Final Report Positive Culture Previous positive called. Rare METHICILLIN RESISTANT Staphylococcus aureus (MRSA) isolated. 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 One colony Staphylococcus lugdunensis isolated. (POS) [facility] Organism METHICILLIN RESISTANT STAPHYLOCOCCUS AUREUS (MRSA)(POS) [facility] Organism STAPHYLOCOCCUS LUGDUNENSIS(POS) [facility] Gram Stain Report Few WBC's seen. No organisms seen. Gram stain electronically reported to and acknowledged by: Che Palomo MD for Podiatric Surgery on 11/17/2023 11:56:22 by Silver Luna MLS [facility] Tissue TOE STRUCTURE [...] lugdunensis Vancomycin VITEK JORDY <=0.5: Sensitive Che Mullent DPM LAB MICROBIOLOGY Performing Organization Address [facility] Co de Phone Number [facility] [address] [address] * FUNGUS CULTURE:INCLUDES SUHAS (11/17/2023 9:35 AM CDT) Final Report No fungus isolated. [facility] SUHAS Prep No fungal elements seen. [facility] Tissue TOE STRUCTURE / Unknown 11/17/2023 9:35 AM CDT Chekatelin Mullent DPM LAB MICROBIOLOGY Performing Organization Address [facility] Co de Phone Number [facility] [address] [address] * ANAEROBE CULTURE (11/17/2023 9:35 AM CDT) Final Report No anaerobes isolated. [facility] Tissue TOE STRUCTURE / Unknown 11/17/2023 9:35 AM CDT Chekatelin Mullent DPM LAB MICROBIOLOGY Performing Organization Address [facility] Co de Phone Number [facility] [address] [place] [phone] * AFB CULTURE:INCLUDES AFB SMEAR (11/17/2023 9:35 AM CDT) Final Report No acid fast bacilli isolated. [facility] Acid Fast Stain No acid fast bacilli seen. [facility] Tissue TOE STRUCTURE / Unknown 11/17/2023 9:35 AM CDT Che Palomo DP LAB MICROBIOLOGY Performing Organization Address [facility] de Phone Number [facility] [address] [address] * M TUBERCULOSIS AMPLIFICATION (11/17/2023 9:32 AM CDT) Final Report M. tuberculosis complex DNA not detected. [facility] Tissue TOE STRUCTURE / Unknown 11/17/2023 9:32 AM CDT 11/18/2023 9:56 AM CDT Comment:1: Left hallux soft tissue dirty Narrative [facility] - 11/18/2023 2:41 PM CDT This assay uses PCR nucleic acid amplification to detect Mycobacterium tuberculosis complex DNA. ??This test was developed and its performance characteristics determined by [facility]. ??It has not been cleared or approved by the U.S. Food and Drug Administration. ??FDA does not require this test to go through premarket FDA review. ??This test is used for clinical purposes. ??It should not be regarded as investigational or for research. ??[facility] is certified under the Clinical Laboratory Improvement Amendments of 1988 (CLIA) as qualified to perform high complexity clinical laboratory testing. Che Palomo DP LAB MICROBIOLOGY Performing Organization Address [facility] Co de Phone Number [facility] [address] [address] * (ABNORMAL) TISSUE CULTURE:INCLUDES GRAM STAIN (11/17/2023 9:32 AM CDT) Final Report Positive Culture Rare METHICILLIN RESISTANT Staphylococcus aureus (MRSA) isolated. 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 Rare Group B beta hemolytic Streptococcus isolated. Pseudomonas aeruginosa isolated in broth only. Results electronically reported to and acknowledged by: Paula Vazquez MD, in Surgery [place], at ?? 11/23/2023 07:49:11 by Pam Alvarado MLS. (POS) [facility] Organism METHICILLIN RESISTANT STAPHYLOCOCCUS AUREUS (MRSA)(POS) [facility] Organism GROUP B BETA HEMOLYTIC STREPTOCOCCUS(POS) [facility] Organism PSEUDOMONAS AERUGINOSA(POS) [facility] Gram Stain Report Positive Gram stain Gram stain electronically reported to and acknowledged by: Che Zheng MD for Podiatric Surgery on 11/17/2023 11:55:10 by Silver Luna MLS Rare WBC's seen. Rare gram positive cocci clusters. (POS) [facility] Tissue TOE STRUCTURE [...] Tobramycin VITEK JORDY <=1: Sensitive Che Palomo [facility] MICROBIOLOGY [facility] [address] [address] * FUNGUS CULTURE:INCLUDES SUHAS (11/17/2023 9:32 AM CDT) Final Report No fungus isolated. [facility] SUHAS Prep No fungal elements seen. [facility] Tissue TOE STRUCTURE / Unknown 11/17/2023 9:32 AM CDT Che Mullent DPM LAB MICROBIOLOGY Performing Organization Address [facility] Co de Phone Number [facility] [address] [address] * (ABNORMAL) ANAEROBE CULTURE (11/17/2023 9:32 AM CDT) Final Report Positive Culture Rare Veillonella parvula group isolated. Rare Actinomyces europaeus isolated. (POS) [facility] Organism VEILLONELLA PARVULA GROUP(POS) [facility] Organism ACTINOMYCES EUROPAEUS(POS) [facility] Tissue TOE STRUCTURE / Unknown 11/17/2023 9:32 AM CDT Che Mullent DPM LAB MICROBIOLOGY Performing Organization Address [facility] Co de Phone Number [facility] [address] [address] * AFB CULTURE:INCLUDES AFB SMEAR (11/17/2023 9:32 AM CDT) Final Report No acid fast bacilli isolated. [facility] Acid Fast Stain No acid fast bacilli seen. [facility] Tissue TOE STRUCTURE / Unknown 11/17/2023 9:32 AM CDT Chekatelin Mullent DPM LAB MICROBIOLOGY Performing Organization Address [facility] Co de Phone Number [facility] [address] [address] * SURGICAL PATHOLOGY (11/17/2023 9:31 AM CDT) SURG PATH FINAL ?Surgical Pathology Report Collection Date: ?11/17/2023 09:31 CDT ?Ordering Physician: ? CHE PALOMO Received Date: ?11/17/2023 09:49 CDT ?Accession Number: ? [id number] ? Surgical Pathology Final Report Specimen Type: [...] underlying soft tissue with moderate osseous softening. [employer] sections are submitted on decalcification as follows: [...] Rodriguez M.D. Attending Pathologist. DDB/DDB 11.17.2023 10:26 [facility] AP Specimen FOOT STRUCTURE / Unknown 11/17/2023 9:31 AM CDT Comment:OR: Routine gross an d microscopic examination Tissue: Left Hallux Site: left foot Additional clinical information: Che Palomo DPM LAB PATHOLOGY Performing Organization Address [facility]/ZIP Co de Phone Number [facility] [place] [address] * (ABNORMAL) POC GLUCOSE (11/17/2023 9:14 AM CDT) POC Glucose 169(H) 70 - 100 mg/dL [facility] Blood 11/17/2023 9:14 AM CDT Jessica Grullon MD LABORATORY Performing Organization Address [facility] Co de Phone Number [facility] [address] [place] [address], [place] * ULT ARTERIAL LOWER EXTREMITY LEFT [...] POC Glucose 205(H) 70 - 100 mg/dL [facility] Blood 11/17/2023 6:07 AM CDT Jessica Grullon MD LABORATORY Performing Organization Address [facility] Co de Phone Number [facility] [address] [place] [phone], * (ABNORMAL) POC GLUCOSE (11/16/2023 8:46 PM CDT) POC Glucose 141(H) 70 - 100 mg/dL [facility] Blood 11/16/2023 8:46 PM CDT Jessica Grullon MD LABORATORY Performing Organization Address [facility] de Phone Number [facility] [address] [place] [phone], [place] * XR FOOT LEFT 3 V [...] the first MTP joint. Procedure Note Jacoby Dover J, DO - 11/16/2023 Exam: Left foot x-rays, [...] POC Glucose 148(H) 70 - 100 mg/dL [facility] Blood 11/16/2023 4:14 PM CDT Jessica Grullon MD LABORATORY Performing Organization Address [facility] Co de Phone Number [facility] [address] [place] [address], * (ABNORMAL) POC GLUCOSE (11/16/2023 10:55 AM CDT) POC Glucose 203(H) 70 - 100 mg/dL [facility] Blood 11/16/2023 10:5 5 AM CDT Jessica Grullon MD LABORATORY Performing Organization Address [facility] Co de Phone Number [facility] [address] [place] [address], * (ABNORMAL) CBC WITH PLATELET (11/16/2023 8:45 AM CDT) WBC 13.08(H) 4.00 - 10.00 k/cmm [facility] RBC 3.38(L) 4.60 - 6.00 m/cmm [facility] Hgb 9.6(L) 13.1 - 17.5 g/dL [facility] Hematocrit 28.9(L) 40.0 - 51.0 % [facility] MCV 85.5 80.0 - 100.0 fL [facility] MCH 28.4 25.0 - 32.0 pg [facility] MCHC 33.2 31.0 - 36.0 g/dL [facility] RDW 13.4 11.5 - 14.5 % [facility] Plt 475(H) 150 - 400 k/cmm [facility] MPV 9.5 6.5 - 12.5 fL [facility] Blood 11/16/2023 8:45 AM CDT 11/16/2023 8:58 AM CDT 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 APRN, CNP LABORATORY [facility] [address] [place] [phone] * (ABNORMAL) PANEL BASIC METABOLIC (BMP) (11/16/2023 8:45 AM CDT) CO2 21(L) 22 - 30 mmol/L [facility] Glucose 261(H) 70 - 100 mg/dL [facility] BUN 35(H) 6 - 20 mg/dL [facility] Creatinine 2.67(H) 0.70 - 1.25 mg/dL [facility] Calcium 8.3(L) 8.6 - 10.0 mg/dL [facility] Sodium 139 135 - 148 mmol/L [facility] Potassium 4.4 3.5 - 5.3 mmol/L [facility] Chloride 106 92 - 108 mmol/L [facility] eGFR (2020 CKD-EPI) 29(L) >=60 ml/min/1.7 3m2 [facility] Comment: The estimated glomerular filtration rate (eGFR) was calculated using the CKD-EPI 2020 creatinine equation, which does not include race as a factor. This equation is validated in individuals 18 years of age and older, and eGFR is normalized to a body surface area of 1.73m^2. AnGap 12 8 - 16 mmol/L [facility] Blood 11/16/2023 8:45 AM CDT 11/16/2023 8:57 AM CDT 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 APRN, CNP LABORATORY Performing Organization Address [facility] Co de Phone Number [facility] [place] [address] * (ABNORMAL) POC GLUCOSE (11/16/2023 7:37 AM CDT) POC Glucose 180(H) 70 - 100 mg/dL [facility] Blood 11/16/2023 7:37 AM CDT Jessica Grullon MD LABORATORY Performing Organization Address [facility] Co de Phone Number [facility] [address] [place] [address], * (ABNORMAL) POC GLUCOSE (11/15/2023 9:23 PM CDT) POC Glucose 144(H) 70 - 100 mg/dL [facility] Blood 11/15/2023 9:23 PM CDT Jessica Grullon MD LABORATORY Performing Organization Address [facility] Co de Phone Number [facility] PO[facility] OF [address] [address], * (ABNORMAL) POC GLUCOSE (11/15/2023 4:18 PM CDT) POC Glucose 159(H) 70 - 100 mg/dL [facility] Blood 11/15/2023 4:18 PM CDT Jessica Grullon MD LABORATORY Performing Organization Address [facility]/ZIP Co de Phone Number [facility] [address] [place] [address], * (ABNORMAL) POC GLUCOSE (11/15/2023 11:19 AM CDT) POC Glucose 221(H) 70 - 100 mg/dL [facility] Blood 11/15/2023 11:1 9 AM CDT Jessica Grullon MD LABORATORY Performing Organization Address [facility] Co de Phone Number [facility] [address] [place] [address], [place] * (ABNORMAL) PANEL BASIC METABOLIC (BMP) (11/15/2023 7:39 AM CDT) CO2 21(L) 22 - 30 mmol/L [facility] Glucose 176(H) 70 - 100 mg/dL [facility] BUN 38(H) 6 - 20 mg/dL [facility] Creatinine 2.86(H) 0.70 - 1.25 mg/dL [facility] Calcium 7.6(L) 8.6 - 10.0 mg/dL [facility] Sodium 136 135 - 148 mmol/L [facility] Potassium 4.2 3.5 - 5.3 mmol/L [facility] Chloride 102 92 - 108 mmol/L [facility] eGFR (2020 CKD-EPI) 27(L) >=60 ml/min/1.7 3m2 [facility] Comment: The estimated glomerular filtration rate (eGFR) was calculated using the CKD-EPI 2020 creatinine equation, which does not include race as a factor. This equation is validated in individuals 18 years of age and older, and eGFR is normalized to a body surface area of 1.73m^2. AnGap 13 8 - 16 mmol/L [facility] Blood 11/15/2023 7:39 AM CDT 11/15/2023 7:58 AM CDT Shani Shaw MD LABORATORY Performing Organization Address [facility]/ZIP Co de Phone Number [facility] [address] [address] * (ABNORMAL) CREATININE, SERUM (11/15/2023 7:39 AM CDT) Creatinine 2.83(H) 0.70 - 1.25 mg/dL [facility] eGFR (2020 CKD-EPI) 27(L) >=60 ml/min/1.7 3m2 [facility] Comment: The estimated [...] Shani Shaw MD LABORATORY Performing Organization Address [facility] Co de Phone Number [facility] [address] [address] * HEPATITIS C ANTIBODY WITH CONDITIONAL PCR (11/15/2023 7:39 AM CDT) Hep C Lilly Nonreactive Nonreactive [facility] Comment:Performance characte ristics have not been established with this test on patients less than 10 years of age. Blood 11/15/2023 7:39 AM CDT 11/15/2023 7:58 AM CDT Zac Churchill MD LABORATORY [facility] [address] [address] * HIV COMBO (11/15/2023 7:39 AM CDT) HIV Antigen-Antibody Nonreactive Nonreactive [facility] Comment:Performance characte ristics have not been established with this test on patients less than 2 years of age. Blood 11/15/2023 7:39 AM CDT 11/15/2023 7:58 AM CDT Zac Churchill MD LABORATORY [facility] [address] [place] [phone] * (ABNORMAL) POC GLUCOSE (11/15/2023 6:16 AM CDT) POC Glucose 154(H) 70 - 100 mg/dL [facility] Blood 11/15/2023 6:16 AM CDT Jessica Grullon MD LABORATORY Performing Organization Address [facility]/[place] [address], [place] * (ABNORMAL) POC GLUCOSE (11/14/2023 8:34 PM CDT) POC Glucose 159(H) 70 - 100 mg/dL [facility] Blood 11/14/2023 8:34 PM CDT Jessica Grullon MD LABORATORY Performing Organization Address [facility] Co de Phone Number [facility] POINT [address] [address], [place] * (ABNORMAL) POC GLUCOSE (11/14/2023 4:36 PM CDT) POC Glucose 182(H) 70 - 100 mg/dL [facility] Blood 11/14/2023 4:36 PM CDT Jessica Grullon MD LABORATORY Performing Organization Address [facility]/ZIP Co de Phone Number [facility] PO[facility] OF [address] [address], [place] * (ABNORMAL) PROTEIN TO CREAT RATIO,URINE (11/14/2023 9:58 AM CDT) TPU 22(H) 0 - 11 mg/dL [facility] Creat Urine 89 30 - 125 mg/dL [facility] Protein to Creat Ratio, Ur 0.25(H) 0.00 - 0.06 mg/mg [facility] Urine 11/14/2023 9:58 AM CDT 11/14/2023 10:06 AM CDT Zac Churchill MD LABORATORY Performing Organization Address [facility] Co de Phone Number [facility] [address] [address] * (ABNORMAL) URINALYSIS,TOTAL (11/14/2023 9:58 AM CDT) Color YELLOW YELLOW [facility] Appearance CLEAR CLEAR [facility] Urine Glucose 500(A) NEGATIVE mg/dL [facility] Bili UA NEGATIVE NEGATIVE [facility] Ketones NEGATIVE NEGATIVE [facility] Specific [place] 1.012 1.003 - 1.030 [facility] Blood Ur NEGATIVE Neg-Trace [facility] PH Urine 5.5 5.0 - 7.0 [facility] Protein Ur TRACE Neg-Trace [facility] Urobilinogen NORMAL NORMAL EU/dL [facility] Nitrite Ur NEGATIVE NEGATIVE [facility] Leuk Est NEGATIVE Neg-Trace [facility] WBC Ur 0-5 0 - 5 perHPF [facility] RBC Ur 0-3 0 - 3 perHPF [facility] Mucus 1+ perLPF [facility] Urinalysis Performed at: [facility] Urine 11/14/2023 9:58 AM CDT 11/14/2023 10:06 AM CDT Zac Churchill MD LABORATORY Performing Organization Address [facility] Co de Phone Number [facility] [address] [address] * (ABNORMAL) POC GLUCOSE (11/14/2023 6:14 AM CDT) POC Glucose 171(H) 70 - 100 mg/dL [facility] Blood 11/14/2023 6:14 AM CDT Jessica Grullon MD LABORATORY Performing Organization Address City/[facility] Co de Phone Number [facility] [address] [place] [phone], * VANCOMYCIN LEVEL (11/14/2023 5:30 AM CDT) Vancomycin 19.9 mcg/mL [facility] Comment:Expected Range (Trou gh): 10-20 mcg/ml Blood 11/14/2023 5:30 AM CDT 11/14/2023 5:56 AM CDT Zac Churchill MD LABORATORY Performing Organization Address [facility] de Phone Number [facility] [place] [address] * (ABNORMAL) CYSTATIN C (11/14/2023 5:30 AM CDT) Cystatin C 1.78(H) 0.61 - 0.95 mg/L [facility] eGFR by Cystatin C 38(L) >=60 ml/min/1.7 3m2 [facility] Comment: Estimated GFR calculated using the CKD-EPI Cystatin C (2012) equation. Stage ? Description ?eGFR Range ??1.......Normal or increased eGFR.......90 or Greater ??2.......Mildly decreased eGFR..........60-89 ??3.......Moderately decreased eGFR......30-59 ??4.......Severely decreased eGFR........15-29 ??5.......Kidney Failure.................Less than 15 Blood 11/14/2023 5:30 AM CDT 11/14/2023 5:56 AM CDT Zac Churchill MD LABORATORY Performing Organization Address [facility] Co de Phone Number [facility] [address] [address] * PHOSPHORUS (11/14/2023 5:30 AM CDT) Phosphorus 4.3 2.5 - 4.5 mg/dL [facility] Blood 11/14/2023 5:30 AM CDT 11/14/2023 5:56 AM CDT Zac Churchill MD LABORATORY Performing Organization Address [facility]/ZIP Co de Phone Number [facility] [address] [address] * (ABNORMAL) PANEL BASIC METABOLIC (BMP) (11/14/2023 5:30 AM CDT) [facility] Sodium 136 135 - 148 mmol/L [facility] Potassium 4.1 3.5 - 5.3 mmol/L [facility] Chloride 103 92 - 108 mmol/L [facility] CO2 24 22 - 30 mmol/L [facility] AnGap 9 8 - 16 mmol/L [facility] Glucose 194(H) 70 - 100 mg/dL [facility] BUN 40(H) 6 - 20 mg/dL [facility] Creatinine 3.21(H) 0.70 - 1.25 mg/dL [facility] Calcium 8.2(L) 8.6 - 10.0 mg/dL [facility] eGFR (2020 CKD-EPI) 23(L) >=60 ml/min/1.7 3m2 [facility] Comment: The estimated glomerular filtration rate (eGFR) was calculated using the CKD-EPI 2020 creatinine equation, which does not include race as a factor. This equation is validated in individuals 18 years of age and older, and eGFR is normalized to a body surface area of 1.73m^2. Blood 11/14/2023 5:30 AM CDT 11/14/2023 5:56 AM CDT Zac Churchill MD LABORATORY [facility] [address] [address] * MAGNESIUM (11/14/2023 5:30 AM CDT) Pathologist [facility] Magnesium 2.4 1.6 - 2.6 mg/dL [facility] Blood 11/14/2023 5:30 AM CDT 11/14/2023 5:56 AM CDT Zac Churchill MD LABORATORY Performing Organization Address [facility]/ZIP Co de Phone Number [facility] [address] [address] * (ABNORMAL) CBC WITH PLATELET (11/14/2023 5:30 AM CDT) [facility] WBC 11.96(H) 4.00 - 10.00 k/cmm [facility] RBC 3.21(L) 4.60 - 6.00 m/cmm [facility] Hgb 9.1(L) 13.1 - 17.5 g/dL [facility] Hematocrit 28.5(L) 40.0 - 51.0 % [facility] MCV 88.8 80.0 - 100.0 fL [facility] MCH 28.3 25.0 - 32.0 pg [facility] MCHC 31.9 31.0 - 36.0 g/dL [facility] RDW 13.4 11.5 - 14.5 % [facility] Plt 372 150 - 400 k/cmm [facility] MPV 9.8 6.5 - 12.5 fL [facility] Blood 11/14/2023 5:30 AM CDT 11/14/2023 5:54 AM CDT Zac Churchill MD LABORATORY Performing Organization Address [facility]/ZIP Co de Phone Number [facility] [address] [address] * (ABNORMAL) POC GLUCOSE (11/13/2023 9:00 PM CDT) [facility] POC Glucose 206(H) 70 - 100 mg/dL [facility] Blood 11/13/2023 9:00 PM CDT Jessica Grullon MD LABORATORY [facility] [address] [place] [phone], * (ABNORMAL) POC GLUCOSE (11/13/2023 4:44 PM CDT) POC Glucose 181(H) 70 - 100 mg/dL [facility] Blood 11/13/2023 4:44 PM CDT Jessica Grullon MD LABORATORY Performing Organization Address [facility] Co de Phone Number [address] [address], [place] * (ABNORMAL) POC GLUCOSE (11/13/2023 10:56 AM CDT) POC Glucose 170(H) 70 - 100 mg/dL [facility] Blood 11/13/2023 10:5 6 AM CDT Jessica Grullon MD LABORATORY Performing Organization Address [facility] Co de Phone Number [address] [address], [place] * URINE CHLAMYDIA AND NEISSERIAE GONORRHOEAE AMPLIFICATION (11/13/2023 10:45 AM CDT) Pathologist [facility] Chlamydia Amplification - Urine Negative Negative [facility] Comment:Test performed by tr anscription mediated amplification and is FDA approved for genital and urine specimens. N. Gonorrhea Amplification - Urine Negative Negative [facility] Comment:Test performed by tr anscription mediated amplification and is FDA approved for genital and urine specimens. Urine 11/13/2023 10:4 5 AM CDT 11/13/2023 3:03 PM CDT Narrative [facility] - 11/15/2023 12:29 PM CDT For Urines, use first void. Zac Churchill MD LABORATORY Performing Organization Address [facility]/ZIP Co de Phone Number [facility] [address] [address] * HEPATITIS B SURFACE ANTIGEN (11/13/2023 10:20 AM CDT) Pathologist [facility] HBV Surface Ag Nonreactive Nonreactive [facility] Comment: Testing performed at: [facility] [address] [address] Blood 11/13/2023 10:2 0 AM CDT 11/13/2023 10:27 AM CDT Zac Churchill MD LABORATORY Performing Organization Address City/[facility]/ZIP Co de Phone Number [facility] [address] [address] * HEPATITIS B SURFACE ANTIBODY (11/13/2023 10:20 AM CDT) [facility] HBsAb Quant <3.31 mIU/ml [facility] Comment:The Hepatitis B Surf gabriella Antibody quantitation is less than 8.00 mIU/mL. There is no evidence of an antibody response to a hepatitis B vaccination or recovery from a hepatitis B infection. This patient is presumed non-immune to hepatitis B. HBsAb Interpretation Nonreactive [facility] Blood 11/13/2023 10:2 0 AM CDT 11/13/2023 10:27 AM CDT Zac Churchill MD LABORATORY Performing Organization Address City/[facility]/ZIP Co de Phone Number [address] [address] * (ABNORMAL) POC GLUCOSE (11/13/2023 6:08 AM CDT) [facility] POC Glucose 154(H) 70 - 100 mg/dL [facility] Blood 11/13/2023 6:08 AM CDT Jessica Grullon MD LABORATORY [facility] [address] [place] [phone], * (ABNORMAL) CYSTATIN C (11/13/2023 5:18 AM CDT) Pathologist [facility] eGFR by Cystatin C 31(L) >=60 ml/min/1.7 3m2 [facility] Comment: Estimated GFR calculated using the CKD-EPI Cystatin C (2012) equation. Stage ? Description ?eGFR Range ??1.......Normal or increased eGFR.......90 or Greater ??2.......Mildly decreased eGFR..........60-89 ??3.......Moderately decreased eGFR......30-59 ??4.......Severely decreased eGFR........15-29 ??5.......Kidney Failure.................Less than 15 Cystatin C 2.11(H) 0.61 - 0.95 mg/L [facility] Blood 11/13/2023 5:18 AM CDT 11/13/2023 5:47 AM CDT Zac Churchill MD LABORATORY Performing Organization Address [facility] de Phone Number [facility] [place] [address] * VANCOMYCIN LEVEL (11/13/2023 5:18 AM CDT) [facility] Vancomycin 35.4 mcg/mL [facility] Comment:Expected Range (Trou gh): 10-20 mcg/ml Blood 11/13/2023 5:18 AM CDT 11/13/2023 5:47 AM CDT Zac Churchill MD LABORATORY Performing Organization Address [facility] Co de Phone Number [facility] [place] [phone] * (ABNORMAL) PHOSPHORUS (11/13/2023 5:18 AM CDT) [facility] Phosphorus 5.2(H) 2.5 - 4.5 mg/dL [facility] Blood 11/13/2023 5:18 AM CDT 11/13/2023 5:47 AM CDT Zac Churchill MD LABORATORY Performing Organization Address [facility]/ZIP Co de Phone Number [facility] [address] [address] * (ABNORMAL) PANEL BASIC METABOLIC (BMP) (11/13/2023 5:18 AM CDT) AnGap 12 8 - 16 mmol/L [facility] Sodium 137 135 - 148 mmol/L [facility] Chloride 103 92 - 108 mmol/L [facility] BUN 37(H) 6 - 20 mg/dL [facility] Calcium 7.8(L) 8.6 - 10.0 mg/dL [facility] CO2 22 22 - 30 mmol/L [facility] Glucose 168(H) 70 - 100 mg/dL [facility] Creatinine 3.04(H) 0.70 - 1.25 mg/dL [facility] Potassium 4.4 3.5 - 5.3 mmol/L [facility] eGFR (2020 CKD-EPI) 25(L) >=60 ml/min/1.7 3m2 [facility] Comment: The estimated [...] Zac Churchill MD LABORATORY Performing Organization Address [facility]/ZIP Co de Phone Number [facility] [address] [address] * MAGNESIUM (11/13/2023 5:18 AM CDT) Magnesium 2.3 1.6 - 2.6 mg/dL [facility] Blood 11/13/2023 5:18 AM CDT 11/13/2023 5:47 AM CDT Zac Churchill MD LABORATORY Performing Organization Address [facility]/ZIP Co de Phone Number [facility] [address] [address] * (ABNORMAL) CBC WITH PLATELET (11/13/2023 5:18 AM CDT) WBC 13.27(H) 4.00 - 10.00 k/cmm [facility] RBC 3.28(L) 4.60 - 6.00 m/cmm [facility] Hgb 9.2(L) 13.1 - 17.5 g/dL [facility] Hematocrit 30.0(L) 40.0 - 51.0 % [facility] MCV 91.5 80.0 - 100.0 fL [facility] MCH 28.0 25.0 - 32.0 pg [facility] MCHC 30.7(L) 31.0 - 36.0 g/dL [facility] RDW 13.5 11.5 - 14.5 % [facility] Plt 317 150 - 400 k/cmm [facility] MPV 10.1 6.5 - 12.5 fL [facility] Blood 11/13/2023 5:18 AM CDT 11/13/2023 5:47 AM CDT Zac Churchill MD LABORATORY Performing Organization Address [facility] Co de Phone Number [facility] [address] [address] * RPR SYPHILIS SCREEN (11/12/2023 11:10 PM CDT) RPR Screen Non-Reactive Non-Reacti ve [facility] RPR Titer Not Reflexed [facility] Blood 11/12/2023 11:1 0 PM CDT 11/12/2023 11:40 PM CDT Zac Churchill MD LABORATORY Performing Organization Address City/[facility]/ZIP Co de Phone Number [facility] [address] [address] * (ABNORMAL) POC GLUCOSE (11/12/2023 8:47 PM CDT) POC Glucose 196(H) 70 - 100 mg/dL [facility] POINT [facility] CARE Blood 11/12/2023 8:47 PM CDT Jessica Grullon MD LABORATORY Performing Organization Address [facility] de Phone Number [facility] POINT OF [address] * (ABNORMAL) POC GLUCOSE (11/12/2023 4:41 PM CDT) [facility] POC Glucose 172(H) 70 - 100 mg/dL [facility] Blood 11/12/2023 4:41 PM CDT Jessica Grullon MD LABORATORY Performing Organization Address [facility] Phone Number [facility] [place] [address], * VANCOMYCIN LEVEL (11/12/2023 1:22 PM CDT) Pathologist [facility] Vancomycin 47.5 mcg/mL [facility] Comment:Expected Range (Trou gh): 10-20 mcg/ml Blood 11/12/2023 1:22 PM CDT 11/12/2023 1:34 PM CDT Narrative [facility] - 11/12/2023 2:28 PM CDT Peak or trough:->Trough Zac Churchill MD LABORATORY Performing Organization Address [facility] Co de Phone Number [facility] [place] [address] * (ABNORMAL) CYSTATIN C (11/12/2023 11:36 AM CDT) Cystatin C 2.20(H) 0.61 - 0.95 mg/L [facility] eGFR by Cystatin C 29(L) >=60 ml/min/1.7 3m2 [facility] Comment: Estimated GFR calculated using the CKD-EPI Cystatin C (2012) equation. Stage ? Description ?eGFR Range ??1.......Normal or increased eGFR.......90 or Greater ??2.......Mildly decreased eGFR..........60-89 ??3.......Moderately decreased eGFR......30-59 ??4.......Severely decreased eGFR........15-29 ??5.......Kidney Failure.................Less than 15 Blood 11/12/2023 11:3 6 AM CDT 11/12/2023 2:53 PM CDT Zac Churchill MD LABORATORY Performing Organization Address [facility] de Phone Number [facility] [place] [phone] * (ABNORMAL) PHOSPHORUS (11/12/2023 11:36 AM CDT) Phosphorus 5.8(H) 2.5 - 4.5 mg/dL [facility] Blood 11/12/2023 11:3 6 AM CDT 11/12/2023 11:49 AM CDT Zac Churchill MD LABORATORY Performing Organization Address [facility] de Phone Number [facility] [address] [address] * (ABNORMAL) PANEL BASIC METABOLIC (BMP) (11/12/2023 11:36 AM CDT) Sodium 137 135 - 148 mmol/L [facility] Potassium 4.9 3.5 - 5.3 mmol/L [facility] Chloride 104 92 - 108 mmol/L [facility] CO2 23 22 - 30 mmol/L [facility] AnGap 10 8 - 16 mmol/L [facility] Glucose 160(H) 70 - 100 mg/dL [facility] BUN 29(H) 6 - 20 mg/dL [facility] Creatinine 2.24(H) 0.70 - 1.25 mg/dL [facility] Calcium 7.8(L) 8.6 - 10.0 mg/dL [facility] eGFR (2020 CKD-EPI) 36(L) >=60 ml/min/1.7 3m2 [facility] Comment: The estimated [...] Zac Churchill MD LABORATORY Performing Organization Address [facility]/ZIP Co de Phone Number [facility] [address] [address] * MAGNESIUM (11/12/2023 11:36 AM CDT) Magnesium 2.3 1.6 - 2.6 mg/dL [facility] Blood 11/12/2023 11:3 6 AM CDT 11/12/2023 11:49 AM CDT Zac Churchill MD LABORATORY Performing Organization Address [facility] Co de Phone Number [facility] [address] [address] * (ABNORMAL) CBC WITH PLATELET (11/12/2023 11:36 AM CDT) WBC 17.87(H) 4.00 - 10.00 k/cmm [facility] RBC 3.40(L) 4.60 - 6.00 m/cmm [facility] Hgb 9.6(L) 13.1 - 17.5 g/dL [facility] Hematocrit 31.1(L) 40.0 - 51.0 % [facility] MCV 91.5 80.0 - 100.0 fL [facility] MCH 28.2 25.0 - 32.0 pg [facility] MCHC 30.9(L) 31.0 - 36.0 g/dL [facility] RDW 13.6 11.5 - 14.5 % [facility] Plt 287 150 - 400 k/cmm [facility] MPV 10.5 6.5 - 12.5 fL [facility] Blood 11/12/2023 11:3 6 AM CDT 11/12/2023 11:48 AM CDT Zac Churchill MD LABORATORY Performing Organization Address [facility] Co de Phone Number [facility] [address] [place] [address] * (ABNORMAL) POC GLUCOSE (11/12/2023 11:05 AM CDT) POC Glucose 147(H) 70 - 100 mg/dL [facility] Blood 11/12/2023 11:0 5 AM CDT Jessica Grullon MD LABORATORY Performing Organization Address [facility] Co de Phone Number [facility] POINT OF [address] * (ABNORMAL) POC GLUCOSE (11/12/2023 10:09 AM CDT) POC Glucose 163(H) 70 - 100 mg/dL [facility] POINT OF CARE Blood 11/12/2023 10:0 9 AM CDT Jessica Grullon MD LABORATORY Performing Organization Address [facility] Co de Phone Number [facility] PO[facility] OF [address] * (ABNORMAL) POC GLUCOSE (11/12/2023 9:04 AM CDT) POC Glucose 146(H) 70 - 100 mg/dL [facility] PO[facility] CARE Blood 11/12/2023 9:04 AM CDT Jessica Grullon MD LABORATORY [facility] POINT OF CARE [address] [place] [address], [place] * (ABNORMAL) POC GLUCOSE (11/12/2023 8:01 AM CDT) POC Glucose 152(H) 70 - 100 mg/dL [facility]ARE Blood 11/12/2023 8:01 AM CDT Jessica Grullon MD LABORATORY Performing Organization Address City/[facility]/ZIP Co de Phone Number [facility] CARE [address] [place] [address], [place] * (ABNORMAL) POC GLUCOSE (11/12/2023 7:00 AM CDT) POC Glucose 147(H) 70 - 100 mg/dL [facility] POINT OF [facility] Blood 11/12/2023 7:00 AM CDT Jessica Grullon MD LABORATORY Performing Organization Address City/[facility]/ZIP Co de Phone Number [facility] [address] [place] [address], [place] * (ABNORMAL) POC GLUCOSE (11/12/2023 6:02 AM CDT) POC Glucose 169(H) 70 - 100 mg/dL [facility] POINT OF CARE Blood 11/12/2023 6:02 AM CDT Jessica Grullon MD LABORATORY [facility] POINT OF [facility] [address] [place] [address], [place] * (ABNORMAL) POC GLUCOSE (11/12/2023 5:00 AM CDT) POC Glucose 166(H) 70 - 100 mg/dL [facility] POINT OF CARE Blood 11/12/2023 5:00 AM CDT Jessica Grullon MD LABORATORY [facility] [address] [place] [id number], [place] * (ABNORMAL) POC GLUCOSE (11/12/2023 4:02 AM CDT) POC Glucose 178(H) 70 - 100 mg/dL [facility] POINT OF [facility] Blood 11/12/2023 4:02 AM CDT Jessica Grullon MD LABORATORY Performing Organization Address City/[facility] Co de Phone Number [facility] [address] [place] [id number], [place] * (ABNORMAL) POC GLUCOSE (11/12/2023 3:17 AM CDT) POC Glucose 176(H) 70 - 100 mg/dL [facility] Blood 11/12/2023 3:17 AM CDT Jessica Grullon MD LABORATORY Performing Organization Address City/[facility] Health/[facility] Co de Phone Number [facility] [address] [place] [address], [place] * (ABNORMAL) POC GLUCOSE (11/12/2023 2:14 AM CDT) POC Glucose 197(H) 70 - 100 mg/dL [facility] Blood 11/12/2023 2:14 AM CDT Jessica Grullon MD LABORATORY Performing Organization Address City/[facility]/ZIP Co de Phone Number [facility] [address] [place] [address], [place] * (ABNORMAL) POC GLUCOSE (11/12/2023 1:02 AM CDT) POC Glucose 195(H) 70 - 100 mg/dL [facility] Blood 11/12/2023 1:02 AM CDT Jessica Grullon MD LABORATORY [facility] [address] [place] [address], [place] * (ABNORMAL) POC GLUCOSE (11/12/2023 12:01 AM CDT) POC Glucose 180(H) 70 - 100 mg/dL [facility] Blood 11/12/2023 12:0 1 AM CDT Jessica Grullon MD LABORATORY Performing Organization Address City/[facility]/ZIP Co de Phone Number [facility] [address] [place] [address], [place] * (ABNORMAL) POC GLUCOSE (11/11/2023 11:01 PM CDT) POC Glucose 185(H) 70 - 100 mg/dL [facility] Blood 11/11/2023 11:0 1 PM CDT Jessica Grullon MD LABORATORY Performing Organization Address City/[facility]/ZIP Co de Phone Number [facility] [address] [place] [address], [place] * (ABNORMAL) POC GLUCOSE (11/11/2023 10:00 PM CDT) POC Glucose 167(H) 70 - 100 mg/dL [facility] Blood 11/11/2023 10:0 0 PM CDT Jessica Grullon MD LABORATORY Performing Organization Address City/[facility]/ZIP Co de Phone Number [facility] [address] [place] [address], [place] * (ABNORMAL) POC GLUCOSE (11/11/2023 9:01 PM CDT) POC Glucose 148(H) 70 - 100 mg/dL [facility] Blood 11/11/2023 9:01 PM CDT Jessica Grullon MD LABORATORY Performing Organization Address [facility] Co de Phone Number [facility] [address] [place] [address], * (ABNORMAL) POC GLUCOSE (11/11/2023 8:02 PM CDT) POC Glucose 167(H) 70 - 100 mg/dL [facility] Blood 11/11/2023 8:02 PM CDT Jessica Grullon MD LABORATORY Performing Organization Address [facility] Co de Phone Number [facility] [address] [place] [address], [place] * (ABNORMAL) POC GLUCOSE (11/11/2023 7:02 PM CDT) POC Glucose 180(H) 70 - 100 mg/dL [facility] Blood 11/11/2023 7:02 PM CDT Jessica Grullon MD LABORATORY Performing Organization Address [facility] Co de Phone Number [facility] [address] [place] [address], [place] * (ABNORMAL) PANEL BASIC METABOLIC (BMP) (11/11/2023 6:42 PM CDT) Sodium 138 135 - 148 mmol/L [facility] Potassium 4.3 3.5 - 5.3 mmol/L [facility] Chloride 103 92 - 108 mmol/L [facility] CO2 25 22 - 30 mmol/L [facility] AnGap 10 8 - 16 mmol/L [facility] Glucose 181(H) 70 - 100 mg/dL [facility] BUN 21(H) 6 - 20 mg/dL [facility] Creatinine 1.03 0.70 - 1.25 mg/dL [facility] Calcium 8.0(L) 8.6 - 10.0 mg/dL [facility] eGFR (2020 CKD-EPI) 91 >=60 ml/min/1.7 3m2 [facility] Comment: The estimated glomerular filtration rate (eGFR) was calculated using the CKD-EPI 2020 creatinine equation, which does not include race as a factor. This equation is validated in individuals 18 years of age and older, and eGFR is normalized to a body surface area of 1.73m^2. Blood 11/11/2023 6:42 PM CDT 11/11/2023 6:47 PM CDT Zac Churchill MD LABORATORY [facility] [place] [address] * (ABNORMAL) POC GLUCOSE (11/11/2023 6:05 PM CDT) Pathologist [facility] POC Glucose 173(H) 70 - 100 mg/dL [facility] Blood 11/11/2023 6:05 PM CDT Jessica Grullon MD LABORATORY Performing Organization Address City/[facility]/ZIP Co de Phone Number [facility] [place] [address], [place] * (ABNORMAL) POC GLUCOSE (11/11/2023 5:01 PM CDT) Pathologist [facility] POC Glucose 163(H) 70 - 100 mg/dL [facility] Blood 11/11/2023 5:01 PM CDT Jessica Grullon MD LABORATORY [facility] [address] [place] [address], * (ABNORMAL) POC GLUCOSE (11/11/2023 3:47 PM CDT) POC Glucose 138(H) 70 - 100 mg/dL [facility] Blood 11/11/2023 3:47 PM CDT Jessica Grullon MD LABORATORY Performing Organization Address City/[facility]/ZIP Co de Phone Number [facility] [address] [place] [address], [place] * (ABNORMAL) POC GLUCOSE (11/11/2023 3:00 PM CDT) POC Glucose 147(H) 70 - 100 mg/dL [facility] Blood 11/11/2023 3:00 PM CDT Jessica Grullon MD LABORATORY Performing Organization Address City/[facility] Co de Phone Number [facility] [address] [phone], [place] * (ABNORMAL) POC GLUCOSE (11/11/2023 2:12 PM CDT) POC Glucose 147(H) 70 - 100 mg/dL [facility] Blood 11/11/2023 2:12 PM CDT Jessica Grullon MD LABORATORY Performing Organization Address City/[facility]/ZIP Co de Phone Number [facility] [address] [place] [address], [place] * (ABNORMAL) POC GLUCOSE (11/11/2023 1:02 PM CDT) POC Glucose 126(H) 70 - 100 mg/dL [facility] Blood 11/11/2023 1:02 PM CDT Jessica Grullon MD LABORATORY Performing Organization Address City/[facility]/ZIP Co de Phone Number [facility] [address] [place] [address], [place] * (ABNORMAL) POC GLUCOSE (11/11/2023 12:01 PM CDT) POC Glucose 141(H) 70 - 100 mg/dL [facility] Blood 11/11/2023 12:0 1 PM CDT Jessica Grullon MD LABORATORY Performing Organization Address City/[facility]/ZIP Co de Phone Number [facility] [address] [place] [address], [place] * (ABNORMAL) POC GLUCOSE (11/11/2023 11:03 AM CDT) POC Glucose 163(H) 70 - 100 mg/dL [facility] Blood 11/11/2023 11:0 3 AM CDT Jessica Grullon MD LABORATORY Performing Organization Address City/[facility] Co de Phone Number [facility] [address] [place] [address], [place] * (ABNORMAL) POC GLUCOSE (11/11/2023 9:59 AM CDT) POC Glucose 170(H) 70 - 100 mg/dL [facility] Blood 11/11/2023 9:59 AM CDT Jessica Grullon MD LABORATORY Performing Organization Address City/[facility]/ZIP Co de Phone Number [facility] [address] [place] [address], [place] * (ABNORMAL) POC GLUCOSE (11/11/2023 8:56 AM CDT) POC Glucose 166(H) 70 - 100 mg/dL [facility] Blood 11/11/2023 8:56 AM CDT Jessica Grullon MD LABORATORY [facility] [address] [place] [address], * (ABNORMAL) POC GLUCOSE (11/11/2023 8:01 AM CDT) [facility] POC Glucose 172(H) 70 - 100 mg/dL [facility] Blood 11/11/2023 8:01 AM CDT Jessica Grullon MD LABORATORY Performing Organization Address City/[facility]/ZIP Co de Phone Number [facility] [address] [place] [address], * ICU PHOSPHORUS (11/11/2023 5:36 AM CDT) [facility] Phosphorus 2.9 2.5 - 4.5 mg/dL [facility] Blood 11/11/2023 5:36 AM CDT 11/11/2023 5:45 AM CDT Zac Churchill MD LABORATORY Performing Organization Address City/[facility]/ZIP Co de Phone Number [facility] [place] [phone] * (ABNORMAL) ICU MAGNESIUM (11/11/2023 5:36 AM CDT) [facility] Magnesium 1.2(L) 1.6 - 2.6 mg/dL [facility] Blood 11/11/2023 5:36 AM CDT 11/11/2023 5:45 AM CDT Zac Churchill MD LABORATORY Performing Organization Address City/[facility]/ZIP Co de Phone Number [facility] [address] [address] * (ABNORMAL) ICU CBC WITH PLTS/AUTO DIFF (11/11/2023 5:36 AM CDT) [facility] WBC 17.41(H) 4.00 - 10.00 k/cmm [facility] RBC 2.72(L) 4.60 - 6.00 m/cmm [facility] Hgb 7.8(L) 13.1 - 17.5 g/dL [facility] Hematocrit 24.1(L) 40.0 - 51.0 % [facility] MCV 88.6 80.0 - 100.0 fL [facility] MCH 28.7 25.0 - 32.0 pg [facility] MCHC 32.4 31.0 - 36.0 g/dL [facility] RDW 13.2 11.5 - 14.5 % [facility] Plt 203 150 - 400 k/cmm [facility] MPV 10.1 6.5 - 12.5 fL [facility] Automated Abs Neutrophil 13.29(H) 1.70 - 6.50 k/cmm [facility] Comment:Preliminary ANC, Fin al Result to Follow [place] Cell Slight [facility] Toxic Gran Present [facility] Toxic Vac Present [facility] Abs Neutrophil 13.41(H) 1.70 - 6.50 k/cmm [facility] Abs Lymphocyte 2.96 0.80 - 4.00 k/cmm [facility] Abs Monocyte 0.87 0.20 - 1.00 k/cmm [facility] Abs Basophil 0.17 0.00 - 0.20 k/cmm [facility] Blood 11/11/2023 5:36 AM CDT 11/11/2023 5:45 AM CDT Zac Churchill MD LABORATORY [facility] [address] [address] * (ABNORMAL) ICU PANEL BASIC METABOLIC (BMP) (11/11/2023 5:36 AM CDT) AnGap 9 8 - 16 mmol/L [facility] BUN 15 6 - 20 mg/dL [facility] Calcium 6.0(AA) 8.6 - 10.0 mg/dL [facility] Comment:Critical Result Low Chloride 108 92 - 108 mmol/L [facility] CO2 22 22 - 30 mmol/L [facility] Glucose 135(H) 70 - 100 mg/dL [facility] Creatinine 0.93 0.70 - 1.25 mg/dL [facility] Potassium 3.2(L) 3.5 - 5.3 mmol/L [facility] eGFR (2020 CKD-EPI) 103 >=60 ml/min/1.7 3m2 [facility] Comment: The estimated glomerular filtration rate (eGFR) was calculated using the CKD-EPI 2020 creatinine equation, which does not include race as a factor. This equation is validated in individuals 18 years of age and older, and eGFR is normalized to a body surface area of 1.73m^2. Sodium 139 135 - 148 mmol/L [facility] Blood 11/11/2023 5:36 AM CDT 11/11/2023 5:45 AM CDT Narrative [facility] - 11/11/2023 6:25 AM CDT Critical value for Calcium called to and read back by Sheila Dias RN in STN4 at 11/11/2023 06:24:12 CDT by Larry Fuchs MLS. Zac Churchill MD LABORATORY Performing Organization Address [facility] Co de Phone Number [facility] [place] [address] * (ABNORMAL) POC GLUCOSE (11/11/2023 5:28 AM CDT) POC Glucose 149(H) 70 - 100 mg/dL [facility] Blood 11/11/2023 5:28 AM CDT Jessica Grullon MD LABORATORY Performing Organization Address [facility] Co de Phone Number [facility] [address] [place] [address] * (ABNORMAL) POC GLUCOSE (11/11/2023 4:29 AM CDT) POC Glucose 159(H) 70 - 100 mg/dL [facility] Blood 11/11/2023 4:29 AM CDT Jessica Grullon MD LABORATORY Performing Organization Address [facility] Co de Phone Number [facility] [address] [place], [place] [address], [place] * (ABNORMAL) POC GLUCOSE (11/11/2023 3:28 AM CDT) POC Glucose 153(H) 70 - 100 mg/dL [facility] Blood 11/11/2023 3:28 AM CDT Jessica Grullon MD LABORATORY Performing Organization Address City/[facility] Co de Phone Number [facility] [address] [place] [address], [place] * (ABNORMAL) POC GLUCOSE (11/11/2023 2:18 AM CDT) POC Glucose 172(H) 70 - 100 mg/dL [facility] Blood 11/11/2023 2:18 AM CDT Jessica Grullon MD LABORATORY Performing Organization Address [facility] Co de Phone Number [facility] [address] [place] [address], [place] * (ABNORMAL) POC GLUCOSE (11/11/2023 1:03 AM CDT) POC Glucose 171(H) 70 - 100 mg/dL [facility] Blood 11/11/2023 1:03 AM CDT Jessica Grullon MD LABORATORY Performing Organization Address City/[facility] Co de Phone Number [facility] [address] [place] [address], [place] * (ABNORMAL) POC GLUCOSE (11/10/2023 11:50 PM CDT) POC Glucose 201(H) 70 - 100 mg/dL [facility] Blood 11/10/2023 11:5 0 PM CDT Jessica Grullon MD LABORATORY Performing Organization Address City/[facility]/ZIP Co de Phone Number [facility] [address] [place] [address], [place] * (ABNORMAL) POC GLUCOSE (11/10/2023 10:39 PM CDT) POC Glucose 192(H) 70 - 100 mg/dL [facility] Blood 11/10/2023 10:3 9 PM CDT Jessica Grullon MD LABORATORY Performing Organization Address City/[facility] Co de Phone Number [facility] [address] [place] [address], [place] * (ABNORMAL) TROP 6H (11/10/2023 10:15 PM CDT) 6H Trop 35 <=35 ng/L [facility] 6H Delta Significan t(A) Not Significant [facility] Blood 11/10/2023 10:1 5 PM CDT 11/10/2023 10:31 PM CDT Jessica Grullon MD LABORATORY Performing Organization Address [facility] Co de Phone Number [facility] [address] [place] [phone] * (ABNORMAL) POC GLUCOSE (11/10/2023 9:36 PM CDT) POC Glucose 200(H) 70 - 100 mg/dL [facility] Blood 11/10/2023 9:36 PM CDT Jessica Grullon MD LABORATORY Performing Organization Address City/[facility] Co de Phone Number [facility] [address] [place] [phone], [place] * (ABNORMAL) POC GLUCOSE (11/10/2023 8:17 PM CDT) POC Glucose 221(H) 70 - 100 mg/dL [facility] Blood 11/10/2023 8:17 PM CDT Jessica Grullon MD LABORATORY Performing Organization Address [facility] [place] [address], * (ABNORMAL) POC GLUCOSE (11/10/2023 7:07 PM CDT) POC Glucose 227(H) 70 - 100 mg/dL [facility] Blood 11/10/2023 7:07 PM CDT Jessica Grullon MD LABORATORY Performing Organization Address [facility] [place] [address], [place] * (ABNORMAL) TROP 2H (11/10/2023 6:34 PM CDT) 2H Trop 21 <=35 ng/L [facility] 2H Delta Significan t(A) Not Significant [facility] Blood 11/10/2023 6:34 PM CDT 11/10/2023 6:37 PM CDT Jessica Grullon MD LABORATORY Performing Organization Address [facility] Co de Phone Number [address] [address] * (ABNORMAL) LACTATE (LACTIC ACID) (11/10/2023 6:34 PM CDT) Lactate 14.6(H) 0.7 - 2.1 mmol/L [facility] Blood 11/10/2023 6:34 PM CDT 11/10/2023 6:37 PM CDT Narrative [facility] - 11/10/2023 6:41 PM CDT Send specimen on ice! Jessica Grullon MD LABORATORY Performing Organization Address City/[facility] Co de Phone Number [facility] [place] [address] [place] [address] * (ABNORMAL) POC GLUCOSE (11/10/2023 6:07 PM CDT) POC Glucose 201(H) 70 - 100 mg/dL [facility] Blood 11/10/2023 6:07 PM CDT Jessica Grullon MD LABORATORY Performing Organization Address [facility] Co de Phone Number [facility] [address] [place] [address], [place] * (ABNORMAL) POC GLUCOSE (11/10/2023 5:30 PM CDT) POC Glucose 197(H) 70 - 100 mg/dL [facility] Blood 11/10/2023 5:30 PM CDT Jessica Grullon MD LABORATORY Performing Organization Address [facility] de Phone Number [facility] [address] [address], [place] * M TUBERCULOSIS AMPLIFICATION (11/10/2023 5:13 PM CDT) Pathologist [facility] Final Report M. tuberculosis complex DNA not detected. [facility] Tissue STRUCTURE OF PERINEAL BODY / Unknown 11/10/2023 5:13 PM CDT 11/11/2023 10:50 AM CDT Comment:2:Perineal tissue Narrative [facility] - 11/11/2023 3:22 PM CDT This assay uses PCR nucleic acid amplification to detect Mycobacterium tuberculosis complex DNA. ??This test was developed and its performance characteristics determined by [facility]. ??It has not been cleared or approved by the U.S. Food and Drug Administration. ??FDA does not require this test to go through premarket FDA review. ??This test is used for clinical purposes. ??It should not be regarded as investigational or for research. ??[facility] is certified under the Clinical Laboratory Improvement Amendments of 1988 (CLIA) as qualified to perform high complexity clinical laboratory testing. Zac Churchill MD LAB MICROBIOLOGY Performing Organization Address City/[facility]/ZIP Co de Phone Number [facility] [address] [address] * (ABNORMAL) TISSUE CULTURE:INCLUDES GRAM STAIN (11/10/2023 5:13 PM CDT) Final Report Positive Culture Rare Actinomyces species isolated. Most closely resembles Actinomyces hominis. Rare Staphylococcus pettenkoferi isolated. A member of the coagulase-negative Staphylococci. Staphylococcus epidermidis isolated in broth only. No further work-up. Plates held one week. (POS) [facility] Organism ACTINOMYCES SPECIES(POS) [facility] Organism STAPHYLOCOCCUS PETTENKOFERI(POS) [facility] Organism STAPHYLOCOCCUS EPIDERMIDIS(POS) [facility] Gram Stain Report Positive Gram stain Gram stain electronically reported to and acknowledged by: Fermin Osborn MD for Burn on 11/10/2023 18:43:03 by Silver Luna MLS Rare WBC's seen. Many gram positive cocci in clusters. (POS) [facility] Tissue STRUCTURE OF PERINEAL BODY / Unknown 11/10/2023 5:13 PM CDT Zac Churchill MD LAB MICROBIOLOGY Performing Organization Address [facility]/ZIP Co de Phone Number [facility] [address] [address] * FUNGUS CULTURE:INCLUDES SUHAS (11/10/2023 5:13 PM CDT) Final Report No fungus isolated. [facility] SUHAS Prep No fungal elements seen. [facility] Tissue STRUCTURE OF PERINEAL BODY / Unknown 11/10/2023 5:13 PM CDT Zac Churchill MD LAB MICROBIOLOGY Performing Organization Address City/[facility]/ZIP Co de Phone Number [facility] [address] [address] * (ABNORMAL) ANAEROBE CULTURE (11/10/2023 5:13 PM CDT) Final Report Positive Culture Many mixed anaerobes present. (POS) [facility] Tissue STRUCTURE OF PERINEAL BODY / Unknown 11/10/2023 5:13 PM CDT Zac Churchill MD LAB MICROBIOLOGY Performing Organization Address [facility] Co de Phone Number [facility] [address] [address] * AFB CULTURE:INCLUDES AFB SMEAR (11/10/2023 5:13 PM CDT) Final Report No acid fast bacilli isolated. [facility] Acid Fast Stain No acid fast bacilli seen. [facility] Tissue STRUCTURE OF PERINEAL BODY / Unknown 11/10/2023 5:13 PM CDT Zac Churchill MD LAB MICROBIOLOGY Performing Organization Address [facility] de Phone Number [facility] [address] [id number] * (ABNORMAL) WOUND CULTURE:GRAM STAIN OPTIONAL (11/10/2023 5:12 PM CDT) Final Report Rare Actinomyces species isolated. Most closely resembles Actinomyces hominis. One colony Staphylococcus epidermidis isolated. (POS) [facility] Organism ACTINOMYCES SPECIES(POS) [facility] Organism STAPHYLOCOCCUS EPIDERMIDIS(POS) [facility] Gram Stain Report Many WBC's seen. Many gram positive cocci in clusters. [facility] Swab STRUCTURE OF PERINEAL BODY / Unknown 11/10/2023 5:12 PM CDT Narrative [facility] - 11/12/2023 3:34 PM CDT Do you want a gram stain: No Zac Churchill MD LAB MICROBIOLOGY Performing Organization Address [facility] Co de Phone Number [facility] [address] [address] * FUNGUS CULTURE:INCLUDES SUHAS (11/10/2023 5:12 PM CDT) Final Report No fungus isolated. [facility] SUHAS Prep No fungal elements seen. [facility] Swab STRUCTURE OF PERINEAL BODY / Unknown 11/10/2023 5:12 PM CDT Zac Churchill MD LAB MICROBIOLOGY Performing Organization Address [facility] Co de Phone Number [facility] [address] [address] * ANAEROBE CULTURE (11/10/2023 5:12 PM CDT) Final Report Moderate mixed anaerobes present. [facility] Swab STRUCTURE OF PERINEAL BODY / Unknown 11/10/2023 5:12 PM CDT Zac Churchill MD LAB MICROBIOLOGY Performing Organization Address [facility] Co de Phone Number [facility] [address] [address] * (ABNORMAL) POC GLUCOSE (11/10/2023 4:28 PM CDT) POC Glucose 236(H) 70 - 100 mg/dL [facility] POINT OF CARE Blood 11/10/2023 4:28 PM CDT Jessica Grullon MD LABORATORY Performing Organization Address [facility] de Phone Number [facility] POINT OF [address] [address], * ED EKG (12-LEAD) (11/10/2023 3:21 PM CDT) 11/10/2023 3:21 PM CDT Impressions [facility] E[place] ORDERS - 11/10/2023 3:21 PM CDT SINUS TACHYCARDIA MINIMAL ST DEPRESSION ??[0.025+ mV ST DEPRESSION] ABNORMAL QRS-T ANGLE ??[QRS-T AXIS DIFFERENCE > 60] NONSPECIFIC ST AND T WAVE ABNORMALITY. ABNORMAL ECG P-R Interval 138 ms QRS Interval 90 ms QT Interval 348 ms QTC Interval 405 ms P [place] 35 QRS [place] 1 T Wave [place] 148 Narrative Procedure Note Jessica Grullon MD - 11/10/2023 IMPRESSION SINUS TACHYCARDIA MINIMAL ST DEPRESSION [0.025+ mV ST DEPRESSION] ABNORMAL QRS-T ANGLE [QRS-T AXIS DIFFERENCE > 60] NONSPECIFIC ST AND T WAVE ABNORMALITY. 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 ??No initial report accompanied the patient and/or Dr. ??JESSICA GRULLON requested an interpretation by me. Technique: ??CT scan of the left lower extremity done on 11/10/2023 with IV contrast. 2 mm axial, sagittal and coronal reconstructions reviewed in soft tissue and bone windows, per the local institution's scanning protocols, which may differ from the [facility] [place]. Findings: ??Subcutaneous [...] of the right hip. Procedure Note Praful Wodoson, CHERELLE - 11/10/2023 Indication: Patient transferred from [facility] due toFournier's gangrene. No initial report accompanied the patient and/or Dr.ROCHELLE GRULLON requested an interpretation by me. Technique: CT scan of the left lower extremity done on 11/10/2023 with IVcontrast. 2 mm axial, sagittal and coronal reconstructions reviewed insoft tissue and bone windows, per the local institution's scanningprotocols, which may differ from the [facility] [place]. 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 ??No initial report accompanied the patient and/or Dr. ??JESSICA GRULLON requested an interpretation by me. Technique: ??CT scan of the abdomen/pelvis done on 11/10/2023 ??with IV contrast. ??3 mm axial, sagittal and coronal reconstructions reviewed in soft tissue and bone windows, per the local institution's scanning protocols, which may differ from the [facility] [place] protocols. Comparison: Same [...] MBBS - 11/10/2023 Indication: Patient transferred from [facility] due toFournier's gangrene. No initial report accompanied the patient and/or Dr.ROCHELLE GRULLON requested an interpretation by me. Technique: CT scan of the abdomen/pelvis done on 11/10/2023 with IVcontrast. 3 mm axial, sagittal and coronal reconstructions reviewed insoft tissue and bone windows, per the local institution's scanningprotocols, which may differ from the [facility] [place] protocols. Comparison: Same [...] (11/10/2023 2:40 PM CDT) Color YELLOW YELLOW [facility] Appearance CLEAR CLEAR [facility] Urine Glucose >=1000(A) NEGATIVE mg/dL [facility] Bili UA NEGATIVE NEGATIVE [facility] Ketones TRACE(A) NEGATIVE [facility] Blood Ur LARGE(A) Neg-Trace [facility] PH Urine 6.5 5.0 - 7.0 [facility] Protein Ur >=600(A) Neg-Trace [facility] Urobilinogen NORMAL NORMAL EU/dL [facility] Nitrite Ur NEGATIVE NEGATIVE [facility] Leuk Est NEGATIVE Neg-Trace [facility] WBC Ur 0-5 0 - 5 perHPF [facility] RBC Ur 11-20(A) 0 - 3 perHPF [facility] SQ EPITH 0-5 0 - 5 perHPF [facility] Mucus 1+ perLPF [facility] Bacteria UA PRESENT [facility] Comment:Presence of bacteria does not necessarily indicate a UTI. The presence of bacteria can indicate a non-clean catch urine specimen. Bacteria should be used in conjunction with other UA results and clinical presentation to assist in diagnosing an infection. Urinalysis Performed at: [facility] Specific [place] 1.020 1.003 - 1.030 [facility] Urine 11/10/2023 2:40 PM CDT 11/10/2023 2:47 PM CDT Jessica Grullon MD LABORATORY Performing Organization Address [facility] Co de Phone Number [facility] [address] [address] * BLOOD AEROBIC/ANAEROBIC CULTURE (11/10/2023 2:39 PM CDT) Final Report No growth after 5 days. [facility] Blood (Peripheral) 11/10/2023 2:39 PM CDT 11/10/2023 4:09 PM CDT Jessica Grullon MD LAB MICROBIOLOGY Performing Organization Address [facility]/ZIP Co de Phone Number [facility] [address] [address] * BLOOD AEROBIC/ANAEROBIC CULTURE (11/10/2023 2:37 PM CDT) Pathologist [facility] Final Report No growth after 5 days. [facility] Blood (Peripheral) 11/10/2023 2:37 PM CDT 11/10/2023 4:09 PM CDT Jessica Grullon MD LAB MICROBIOLOGY Performing Organization Address [facility] Co de Phone Number [facility] [address] [address] * (ABNORMAL) SED RATE (ESR) (11/10/2023 2:31 PM CDT) Pathologist [facility] Sed Rate 120(H) 2 - 10 mm/hr [facility] Blood 11/10/2023 2:31 PM CDT 11/10/2023 2:57 PM CDT Jessica Grullon MD LABORATORY Performing Organization Address [facility] Co de Phone Number [facility] [address] [address] * EXTRA TUBE - SST (11/10/2023 2:31 PM CDT) Pathologist [facility] SST TUBE Stored [facility] Comment:SST tubes (Serum Sep arator) are stored in the lab for 3 days from the collection date. Blood 11/10/2023 2:31 PM CDT 11/10/2023 2:43 PM CDT Jessica Grullon MD LABORATORY Performing Organization Address [facility] Co de Phone Number [facility] [address] [address] * (ABNORMAL) HS TROPONIN (11/10/2023 2:31 PM CDT) Pathologist [facility] HS Troponin I 49(H) <=35 ng/L [facility] Blood 11/10/2023 2:31 PM CDT 11/10/2023 2:57 PM CDT Narrative [facility] - 11/10/2023 3:25 PM CDT First Occurrence of the Troponin order is to be drawn Stat by Nursing staff on the unit. Jessica Grullon MD LABORATORY Performing Organization Address [facility] Co de Phone Number [facility] [address] [address] * ETHANOL (ETOH) LEVEL, BLOOD (11/10/2023 2:31 PM CDT) Ethanol Negative Negative g/dL [facility] Blood 11/10/2023 2:31 PM CDT 11/10/2023 2:57 PM CDT Jessica Grullon MD LABORATORY Performing Organization Address [facility] Co de Phone Number [facility] [address] [address] * PTT (APTT) (11/10/2023 2:31 PM CDT) Pathologist [facility] APTT 32.9 25.0 - 37.0 sec [facility] Blood 11/10/2023 2:31 PM CDT 11/10/2023 2:57 PM CDT Jessica Grullon MD LABORATORY Performing Organization Address [facility] Co de Phone Number [facility] [address] [address] * ED INR (11/10/2023 2:31 PM CDT) Pathologist [facility] ED INR 1.1 0.8 - 1.1 [facility] Comment: Warfarin Therapeutic Range: Standard Intensity: 2.0 - 3.0 High Intensity: 2.5 - 3.5 This is a rapid INR screening test which uses whole blood; results may infrequently differ from plasma INR results. If medication adjustments/dosing are required a PT/INR test ([id number]) should be ordered and performed in the main laboratory. Blood 11/10/2023 2:31 PM CDT 11/10/2023 2:41 PM CDT Jessica Grullon MD LABORATORY Performing Organization Address [facility] Co de Phone Number [facility] [address] [address] * (ABNORMAL) LACTATE (LACTIC ACID) (11/10/2023 2:31 PM CDT) Pathologist [facility] Lactate 2.3(H) 0.7 - 2.1 mmol/L [facility] Blood 11/10/2023 2:31 PM CDT 11/10/2023 2:45 PM CDT Narrative [facility] - 11/10/2023 2:49 PM CDT Send specimen on ice! Jessica Grullon MD LABORATORY Performing Organization Address [facility] Co de Phone Number [facility] [address] [address] * (ABNORMAL) FIBRINOGEN (11/10/2023 2:31 PM CDT) [facility] Fibrinogen >1,000(H) 200 - 400 mg/dL [facility] Blood 11/10/2023 2:31 PM CDT 11/10/2023 2:57 PM CDT Jessica Grullon MD LABORATORY Performing Organization Address [facility] Co de Phone Number [facility] [address] [address] * (ABNORMAL) PANEL HEPATIC FUNCTION (11/10/2023 2:31 PM CDT) Pathologist [facility] Total Protein 7.1 6.4 - 8.3 g/dL [facility] Albumin 2.9(L) 3.8 - 5.1 g/dL [facility] Bili Total 0.3 <=1.2 mg/dL [facility] Bili Direct <0.2 <=0.3 mg/dL [facility] Alk Phos 104 40 - 129 IU/L [facility] Comment:No reference range e stablished for patients <18 years old. ALT (SGPT) 9 <=41 IU/L [facility] AST(SGOT) 14 5 - 40 IU/L [facility] Blood 11/10/2023 2:31 PM CDT 11/10/2023 2:57 PM CDT Jessica Grullon MD LABORATORY Performing Organization Address [facility]/ZIP Co de Phone Number [facility] [address] [address] * (ABNORMAL) ED HEMOGLOBIN TOTAL (ED ONLY) (11/10/2023 2:31 PM CDT) Hgb 12.4(L) 13.1 - 17.5 g/dL [facility] Blood 11/10/2023 2:31 PM CDT 11/10/2023 2:45 PM CDT Jessica Grullon MD LABORATORY Performing Organization Address [facility] Co de Phone Number [facility] [address] [address] * (ABNORMAL) ED CHEMISTRY LABS(NA,K,CL,CO2,GLU,CREAT,CA-IONIZED,ANION GAP) (11/10/2023 2:31 PM CDT) Sodium 133(L) 135 - 148 mmol/L [facility] Potassium 3.7 3.5 - 5.3 mmol/L [facility] Chloride 93 92 - 108 mmol/L [facility] AnGap 12 8 - 16 mmol/L [facility] Glucose 304(H) 70 - 100 mg/dL [facility] ICA, Actual 4.14(L) 4.40 - 5.20 mg/dL [facility] ICA, pH Corrected 4.29(L) 4.40 - 5.20 mg/dL [facility] Creatinine 0.98 0.70 - 1.25 mg/dL [facility] BICARB 27(H) 22 - 26 mEq/L [facility] eGFR (2020 CKD-EPI) 97 >=60 ml/min/1.7 3m2 [facility] Comment: The estimated glomerular filtration rate (eGFR) was calculated using the CKD-EPI 2020 creatinine equation, which does not include race as a factor. This equation is validated in individuals 18 years of age and older, and eGFR is normalized to a body surface area of 1.73m^2. Blood 11/10/2023 2:31 PM CDT 11/10/2023 2:45 PM CDT Jessica Grullon MD LABORATORY [facility] [address] [address] * (ABNORMAL) CBC WITH PLTS/AUTO DIFF (11/10/2023 2:31 PM CDT) WBC 21.95(H) 4.00 - 10.00 k/cmm [facility] RBC 4.26(L) 4.60 - 6.00 m/cmm [facility] Hgb 12.0(L) 13.1 - 17.5 g/dL [facility] Hematocrit 36.3(L) 40.0 - 51.0 % [facility] MCV 85.2 80.0 - 100.0 fL [facility] MCH 28.2 25.0 - 32.0 pg [facility] MCHC 33.1 31.0 - 36.0 g/dL [facility] RDW 12.9 11.5 - 14.5 % [facility] Plt 262 150 - 400 k/cmm [facility] MPV 10.1 6.5 - 12.5 fL [facility] Automated Abs Neutrophil 18.29(H) 1.70 - 6.50 k/cmm [facility] Comment:Preliminary ANC, Fin al Result to Follow Abs Immature Granulocyte 0.26(H) 0.00 - 0.09 k/cmm [facility] Comment:The Immature Granulo cyte Absolute count contains metamyelocytes and myelocytes. Abs Neutrophil 18.29(H) 1.70 - 6.50 k/cmm [facility] Abs Lymphocyte 1.53 0.80 - 4.00 k/cmm [facility] Abs Monocyte 1.83(H) 0.20 - 1.00 k/cmm [facility] Abs Eosinophil 0.00 0.00 - 0.60 k/cmm [facility] Abs Basophil 0.04 0.00 - 0.20 k/cmm [facility] Polychromasia Slight [facility] Dohle Body Present [facility] Toxic Vac Present [facility] Blood 11/10/2023 2:31 PM CDT 11/10/2023 2:57 PM CDT Jessica Grullon MD LABORATORY Performing Organization Address [facility]/ZIP Co de Phone Number [facility] [address] [address] * (ABNORMAL) BLOOD GASES (11/10/2023 2:31 PM CDT) PH Mayo 7.47(H) 7.32 - 7.42 [facility] PCO2 Mayo 38(L) 41 - 51 mmHG [facility] PO2 Mayo 75(H) 25 - 40 mmHG [facility] Bicarb Mayo 27 24 - 28 mEq/L [facility] O2 Sat Mayo 96 % [facility] Base Exc [place] 3.7(H) -10.0 - 2.0 mmol/L [facility] Blood Venous 11/10/2023 2:31 PM CDT 11/10/2023 2:45 PM CDT Jessica Grullon MD LABORATORY Performing Organization Address [facility]/ZIP Co de Phone Number [facility] [address] [address] * ANTIBODY SCREEN (11/10/2023 2:29 PM CDT) Lilly Screen Negative [facility] Blood 11/10/2023 2:29 PM CDT 11/10/2023 2:49 PM CDT Jessica Grullon MD LAB TRANSFUSION SER VICES Performing Organization Address [facility]/ZIP Co de Phone Number [facility] [address] [address] * BLOOD TYPING-ABO/RH (11/10/2023 2:29 PM CDT) ABORHG A POS [facility] Blood 11/10/2023 2:29 PM CDT 11/10/2023 2:49 PM CDT Jessica Grullon MD LAB TRANSFUSION SER VICES Performing Organization Address [facility]/ZIP Co de Phone Number [facility] [address] [address] * PRECAUTIONARY TUBE (11/10/2023 2:29 PM CDT) Prec Tube Precautionary Blood Bank Specimen Received. [facility] Blood 11/10/2023 2:29 PM CDT 11/10/2023 2:49 PM CDT Jessica Grullon MD LAB TRANSFUSION SER VICES Performing Organization Address [facility] Co de Phone Number [facility] [address] [address] * ED US CRITICAL CARE (11/10/2023 2:28 PM CDT) Anatomical Region Laterality Modality Ultrasound Narrative 11/10/2023 3:16 PM CDT ED Critical Care Resuscitative Ultrasound ED Cardiac Ultrasound Body Areas Imaged: Heart, Chest Wall/Lungs, and Inferior Vena Cava Indications:Shock/Sepsis Window: Subxiphoid, Parasternal Short [place], Parasternal Long [place], Apical 4-Chamber, and Bilateral Lungs Findings: The [...] 11/22/2023 8:35 PM CDT 20 mg heparin 28863 UNITS/mL injection 7,500 UNITS 7,500 UNITS, Subcutaneous, [...] RN) 750 (Given - Provider: Demetra Brito RN)1428 (Given - Provider: Demetra Brito RN)2015 (Given [...] (Given - Provider: Sheila Dias, RN) heparin 49916 UNITS/mL injection 7,500 UNITS 7,500 UNITS, Subcutaneous, Q 8H, First dose on Wed11/17/23 at 1505, Until Discontinued 0553 (Given - Provider: Mabel Mathews, RN)1424 (Given - Provider: Demetra Brito, SABINE)2304 (Given - Provider: Irene Min, SABINE) 0603 (Given - Provider: Deja Vasquez RN)1429 (Given - Provider: Demetra Brito, SABINE)2224 (Given - Provider: Sheila Dias, RN) 0646 (Given - Provider: Sheila Dias, SABINE) insulin ASPART (NovoLOG) FlexPen Insulin Order [...] John Taylor RN)1149 (Given - Provider: John Taylor, SABINE)1636 (Dual [...] Until Discontinued 1247 (Dual Sign-Off - Provider: Dmeetra Brito RN)1250 (Given - Provider: John Taylor [...] dose on Wed11/15/23 at 0800, Until Discontinued 39 (Not Given [...] (Use First) 0908 (Given - Provider: John Taylor, SABINE)1424 (Given - Provider: Demetra Brito, SABINE) 2024 (Given - Provider: Sheila Dias, SABINE) [...]
--- OUTSIDE RECORDS SUMMARY | 2024-02-14 09:07 | XMS_ITS | Encounter Summary ---
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
--- OUTSIDE RECORDS SUMMARY | 2024-02-14 09:07 | XMS_ITS | Encounter Summary ---
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
--- OUTSIDE RECORDS SUMMARY | 2024-02-14 09:07 | XMS_ITS | Encounter Summary ---
Author Organization [facility] Address [address] [place] [address] Phone Care Team Providers Care Training Administrator Name Role Phone Unavailable Primary Care Provider Unavailabl e Reason for Visit * Auth/Cert (Routine) Specialty Diagnoses / Procedures Referred By Contmini t Referred To Contact SURGERY Diagnoses 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HHS) Hyperglycemia Zac Jackson MD [address] [place] [address] [address] [place] [address] [address] [place] [id number] [place] [address] Referral ID Status Reason Start Date Expiration Date Visits Re quested Visits Authorized [id number] 1 1 Encounter Details Date Type Department Care Team (Late st Contact Info) Description 11/11/2023 2:34 PM CDT Anesthesia Event OR P4 [address] [place] [address] Jatin Eckert MD [address] [place], [place] [id number] Cristiano Gage APRN, [place] [address] [place], [place] [id number] Anesthesia Record Procedure Summary Procedure Name Responsible [...] [facility] type: General () Patient [...] GI (+) obesity Hematologic/Onc - negative ROS /Renal/Patient Service Rep ROS comment: Founier's gangrene Airway Mallampati: II TM distance: >3 FB Neck ROM: full Mouth Opening: good Dental (+) missing teeth and poor dentition Risk of dental damage discussed with patient/guardian who acknowledges understanding. OB Other Physical Exam Anesthesia Plan ASA 3 general intravenous induction Maintenance: Balanced Post-op Care: routine analgesia Plan discussed with HEARING AID REPAIRER. Vitals: 11/11/23 1240 BP: Pulse: 78 Resp: [...]
--- OUTSIDE RECORDS SUMMARY | 2024-02-14 09:07 | XMS_ITS | Encounter Summary ---
Author Organization [facility] Address [address] [place] [address] Phone Care Team Providers Care Rotary Derrick Operator Name Role Phone Unavailable Primary Care [...]
--- OUTSIDE RECORDS SUMMARY | 2024-02-14 09:07 | XMS_ITS | Encounter Summary ---
Author Organization [facility] Address [address] [place] [phone] Phone Care Team Providers Care Overhead Crane Technician Name Role Phone Unavailable Primary Care [...]
--- OUTSIDE RECORDS SUMMARY | 2024-02-14 09:07 | XMS_ITS | Encounter Summary ---
Author Organization [facility] Address [address] [place] [phone] Phone Care Team Providers Care Vp Site Name Role Phone Unavailable Primary Care Provider [...]
--- OUTSIDE RECORDS SUMMARY | 2024-02-14 09:07 | XMS_ITS | Encounter Summary ---
Author Organization [facility] Address [address] [place] [address] Phone Care Team Providers Care Press Tool Maker Name Role Phone Unavailable Primary Care [...]
--- OUTSIDE RECORDS SUMMARY | 2024-02-14 09:07 | XMS_ITS | Encounter Summary ---
Author Organization [facility] Address [address] [place] [phone] Phone Care Team Providers Care Supplier Manager Name Role Phone Unavailable Primary Care [...]
--- OUTSIDE RECORDS SUMMARY | 2024-02-14 09:07 | XMS_ITS | Encounter Summary ---
Author Organization [facility] Address [address] [place] [address] Phone Care Team Providers Care Caustic Pump Operator Name Role Phone Unavailable Primary Care [...]
--- OUTSIDE RECORDS SUMMARY | 2024-02-14 09:07 | XMS_ITS | Encounter Summary ---
Author Organization [facility] Address [address] [place] [address] Phone Care Team Providers Care Creel Operator Name Role Phone Unavailable Primary Care [...]
--- OUTSIDE RECORDS SUMMARY | 2024-02-14 09:07 | XMS_ITS | Encounter Summary ---
Author Organization [facility] Address [address] [place] [address] Phone Care Team Providers Care Monogram And Letter Paster Name Role Phone Unavailable Primary Care Provider [...]
--- OUTSIDE RECORDS SUMMARY | 2024-02-14 09:07 | XMS_ITS | Encounter Summary ---
Author Organization [facility] Address [address] [place] [address] Phone Care Team Providers Care Field Sales Consultant Name Role Phone Unavailable Primary Care [...]
--- OUTSIDE RECORDS SUMMARY | 2024-02-14 09:07 | XMS_ITS | Encounter Summary ---
Author Organization [facility] Address [address] [place] [phone] Phone Care Team Providers Care House Designer Name Role Phone Unavailable Primary Care Provider [...]
--- OUTSIDE RECORDS SUMMARY | 2024-02-14 09:09 | XMS_ITS | Encounter Summary ---
Author Organization [facility] Address [address] [place] [address] Phone Care Team Providers Care Drill Operator Name Role Phone Unavailable Primary Care Provider Unavailabl e Reason for Visit * Reason Comments Fever Penis/Scrotal Problem Toe Problem * Auth/Cert (Routine) Specialty Diagnoses / Procedures Referred By Katherine t Referred To Contact SURGERY Diagnoses 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HHS) Hyperglycemia Zac Churchill MD [address] [facility] [address] [place] [address] [address] [facility] [address] [place] [address] Referral ID Status Reason Start Date Expiration Date Visits Re quested Visits Authorized [id number] 1 1 Encounter Details Date Type Department Care Team (Late st Contact Info) Description 11/11/2023 2:00 PM CDT - 11/11/2023 3:54 PM CDT Surgery OR P4 [address] [place] [address] Donovan Sloan MD [address] [place] [address] [address] [place], [place] [id number] IRRIGATION AND DEBRIDEMENT, PERINEAL WOUND Social History [...] encounter Discharge Summaries * 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, JAROD, HOME DELIVERY DRIVER - 11/25/2023 7:37 AM CDT GENERAL SURGERY DISCHARGE SUMMARY - INFORMATION SECURITY OFFICER Stephanie Low : 1980 Sex: male Date of Admission: 11/10/2023 Date of Discharge: 11/25/2023 Disposition: [facility] Facility Primary care physician: No primary care [...] will follow up with 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 APRN, HOME DELIVERY DRIVER Malnutrition Weight: (!) 142.9 kg (315 lb 1.6 oz) Wt Change from Previous: 0 Kg Wt Change from Admit: 2.43 Kg % Wt Change from Adm: 1.73 % Monroe Body Wt (IBW) Male (kg): 75.26 kg [...] oriented x 3. No gross focal deficits Forest Fire Control Officer Needed: no PLANNED DISCHARGE ORDERS: Suture/Sharon: None [...] of plan of care? Yes Okay for Usp Facility standing orders? Question Response Notes OK for Usp Facility house standing orders? Yes Other Nursing [...] or contraindicated. Resume previous standing orders per fdc policy Order Notes Resume previous standing orders per fdc policy Patient is on a Consistent Carbohydrate [...] 4:30PM, M-F): Call the Surgery Clinic at [phone] After hours or on Holidays: Call the [facility] joy operator . Ask the joy operator to page the general surgery resident masonry installer. IF: -- you feel you are getting [...] -- Read all labels for prescription and Gcqp-fsj-gqtavfc medicines. Ask the pharmacist if your prescription [...] Your Medications These medications were sent to [facility] Discharge Pharmacy - [place] [id number] Hours: 30/11 insulin LISPRO 100 UNIT/ML Kwikpen [...] plan. 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 APRN, CNP 11/25/2023 07:37 [facility] Department of Surgery Pager: via telemediq I have spent 45 minutes with this patient today in which greater than 50% of this time was spent incounseling/coordination of care regarding in patient care, review of imaging/labs, chart review andconsultant recommendations. Dictation Disclaimer: Some notes are completed with voice-recognition dictation software. Errors are generally corrected in real time. Please contact me via [employer] staff message if you note any errors [...] - Resources for patient (select all that apply):[id number]} documented in this encounter Medications at Time [...] the discharge summary paperwork with medication orders. Fire Equipment Repairer Inspector opened admission encounter and re-faxed discharge paperwork to the provided fax # of [phone]. Tried a second fax # after this wasn't received, which also wasn't received. Third attempt made viaencrypter email. Confirmed received paperwork via encrypted email. Pepe Hernandez RN, 11/25/2023 9:33 PM ED Clinical Coordinator Office: [phone] [employer]: ED Clinical Coordinator * Kate Harmon [...] patient if they call back with questions. Kaet Harmon RN, 11/25/2023 11:20 AM * Aretha [...] with Betadine, 4 x 4 gauze, Kerlix, gabrilela, stocking. Ordered RN dressingchanges to be done [...] (Arrive by 12:50 PM) with Dr Palomo ([facility] since he is discharging to [place].Follows with [facility] when closer to home otherwise. Please page masonry installer resident with questions. Interval History Patient was [...] CDT Preadmission Screening Submitter InformationPerson Being ReferredMedical InformationADLMount Saint Mary's HospitalSubmitResults Results Thank you for submitting a [...] help, contact the Senior LinkAge Line at [phone] or click to contact us. Print this page You have successfully submitted the preadmission screening (PAS) to the Senior LinkAge Line on: Created On 11/24/2023 2:25 PM Your confirmation number is: [id number] Results Level of Care: Based on the information you provided, it appears this person meets level of care for purposes of MA payment. OBRA: It appears this person does not need an OBRA Level II assessment. Submitter Information Form Type PAS Submitter First and Last Name Caridad Dorsey Direct Agency [facility] [address] [place] [place] [address] [place] [address] Is your Agency outside [place]? Person Being Admitted to Nursing Facility Legal first name Matt Last name Stephanie Date of 1980 Age 43 Gender Male Marital Status N= Never Race A = B = Black or N = or [place] P = [place] or W = White U = Unable to Determine Ethnicity Not / Currently living with: 01 Living Alone Planned living with 04 Living in Congregate Setting Housing Type Home or apartment, including assisted living (09) Mailing Address [address] [place] [address] [place] Code [address] [facility] Medical Information Reason for nursing facility [...] facility the person will admit to?Yes Provider [facility] Nursing Facility Service Type Halfway [address] Zip [address] [place] [address] If your provider is not listed check [...] follow-up. Did not ask * 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, POLITICAL ORGANIZER, HOME DELIVERY DRIVER - 11/24/2023 1:43 PM CDT SURGERY PROGRESS NOTE--INFORMATION SECURITY OFFICER Stephanie Low : 1980 Sex: male SIGNIFICANT [...] for discharge. Planning on discharge today to [facility] pending insurance approval. PLAN: Neuro/Pain Control: [...] Trend WBCs and fever Skin/Wounds: Perineal debridement hysj-zxp-ct-dry dressings with Vashe; Left hallux amputation -Betadine with 4 x 4 DVT prophylaxis: Lovenox and SCDs Weight Bearing: Heel touch WB in surgical shoe. On the LLW Activity: Ad celia PT/OT: Appreciate Recs Disposition: [facility] on 11/24/23 pending insurance authorization 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 APRN, CNP, 11/24/2023 1:43 PM [facility] Department of Surgery Pager: via telemediq I have spent 30 minutes with this patient today in which greater than 50% of this time was spent incounseling/coordination of care regarding in patient care, review of imaging/labs, chart review andconsultant recommendations. Dictation Disclaimer: Some notes are completed with voice-recognition dictation software. Errors are generally corrected in real time. Please contact me via [employer] staff message if you note any errors [...] Dr Type of ride: [employer] #conformation [id number] Transportation vendor of ride (choose one below):* [facility] [phone] If this ride needs to [...] Clinical Coordinators will be informed via a [employer] page. PCS form was completed in [...] sex Attending provider: Zac Churchill MD Insurance: [facility] Secondary insurance: [place] [employer] Height: Height: 180.3 cm (5' [...] mgmt/ADL: 18 minutes Chayo Townsend OTR/Brian Pager: [facility] OT Department Problem: Loss of Humboldt With ADLs, Risk for Goal: Will complete lower body dressing Description: Patient will complete lower body dressing with Modified Humboldt (6). Outcome: In progress Goal: Will toilet self Description: Patient will toilet self with Modified [place]t (6). Outcome: In progress * Lior Azul [...] Services Address Phone Fax Patient Preferred [facility] Selected [facility]sp [id number] [facility] [phone] -- Internal Comment last updated by Lior Azul 11/24/2023 0805 Pending prior auth. Lior Azul, 11/24/2023 8:05 AM Received VM saying they would accept . LVM saying we would accept bed.. Caridad Dorsey, 11/24/2023 7:50 AM Admissions is currently reviewing .Caridad Dorsey, 11/23/2023 9:31 AM No bd available until next week. Caridad Dorsey, 11/18/2023 8:[address] [facility], [facility] ([facility]) Accepted N/A [address] [facility] [address] [phone] -- Internal Comment last updated by Lior Azul 11/24/2023 0840 They can offer us a bed here but we already found one in [place]. Lior Azul, 11/24/2023 8:40 AM [facility] Pending - Request Sent N/A [address] [facility] [address] [phone] -- Internal Comment last updated by Caridad Dorsey 11/23/2023 0937 LVM for admissions .Caridad Dorsey, 11/23/2023 9:37 AM [facility] Declined Current smoking, Bariatric N/A [address] [facility] [address] [phone] -- The [facility] Declined Distance N/A [address] [address] [phone] -- Internal Comment last updated by Lior Azul 11/22/2023 1217 This is too far from where patient lives. Lior Azul, 11/22/2023 12:18 PM Sent e mail to Allie .Caridad Dorsey, 11/22/2023 8:10 AM LVM for admissions .Caridad Dorsey, 11/19/2023 7:44 AM Sent email to Missy.Caridad Dorsey, 11/17/2023 2:24 PM [facility] Declined No Contract with Patient's Insurance Carrier N/A [address] [place] [id number] [phone] -- [facility] Declined Current smoking, Acuity too high N/A [address] [facility] [address] [phone] -- Internal Comment last updated by Caridad Dorsey 11/18/2023 0831 LVM for admissions.Caridad Dorsey, 11/18/2023 8:31 AM Nena Ernandez, [facility] Declined Bed not available N/A 1001 [facility] [address] [phone] -- Internal Comment last updated by Lior Azul 11/23/2023 1415 Looking for a bed in the [facility] .Caridad Dorsey, 11/23/2023 9:35 AM LVM for admissions.Caridad Dorsey, 11/19/2023 8:17 AM LVM for admissions.Caridad Dorsey, 11/18/2023 8:37 AM [facility] Declined Bed not available N/A [address] [facility] [address] [phone] -- The [facility], [facility] Declined Bed not available N/A [address] [facility] [address] [phone] -- The [facility] Declined Bed not available N/A [address] [facility] [address] [phone] -- Home Medical Care No active coordination exists for this encounter. * 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, JAROD, PATRICIA - 11/23/2023 3:06 PM CDT SURGERY PROGRESS NOTE--INFORMATION SECURITY OFFICER Stephanie Low : 1980 Sex: male SIGNIFICANT [...] Trend WBCs and fever Skin/Wounds: Perineal debridement rfaf-rcu-ug-dry dressings with Vashe; Left hallux amputation -Betadine with 4 x 4 DVT prophylaxis: Lovenox and SCDs Weight Bearing: Heel touch WB in surgical shoe. On the LLW Activity: Ad celia PT/OT: Appreciate Recs Disposition: Postacute placement recommended-care management and social work looking for a TCU. 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 APRN, PATRICIA, 11/23/2023 3:06 PM [facility] Department of Surgery Pager: via telemediq I have spent 30 minutes with this patient today in which greater than 50% of this time was spent incounseling/coordination of care regarding in patient care, review of imaging/labs, chart review andconsultant recommendations. Dictation Disclaimer: Some notes are completed with voice-recognition dictation software. Errors are generally corrected in real time. Please contact me via [employer] staff message if you note any errors [...] Services Address Phone Fax Patient Preferred [facility] Pending - Request Sent N/A [address] [facility] [phone] -- Internal Comment last updated by Caridad Dorsey 11/23/2023 0931 Admissions is currently reviewing .Caridad Dorsey, 11/23/2023 9:31 AM No bd available until next week. Caridad Dorsey, 11/18/2023 8:34 AM Nena Dionicio, A [facility] Pending - Request Sent N/A 100[address] [facility] [address] [phone] -- Internal Comment last updated by Lior Azul 11/23/2023 1415 Looking for a bed in the [facility] .Caridad Dorsey, 11/23/2023 9:35 AM LVM for admissions.Caridad Dorsey, 11/19/2023 8:17 AM LVM for admissions.Caridad Dorsey, 11/18/2023 8:37 AM [facility] Pending - Request Sent N/A [address] [facility] [address] [phone] -- Internal Comment last updated by Caridad Dorsey 11/23/2023 0937 LVM for admissions .Caridad Dorsey, 11/23/2023 9:37 AM [facility] Declined Current smoking, Bariatric N/A [address] [facility] [address] [phone] -- [facility] Declined Distance N/A [address] [address] [phone] -- Internal Comment last updated by Lior Azul 11/22/2023 1218 This is too far from where patient lives. Lior Azul, 11/22/2023 12:18 PM Sent e mail to Allie .Caridad Dorsey, 11/22/2023 8:10 AM LVM for admissions .Caridad Dorsey, 11/19/2023 7:44 AM Sent email to Missy.Caridad Dorsey, 11/17/2023 2:24 PM [facility] Declined No Contract with Patient's Insurance Carrier N/A [id number] [place] [id number] -- [facility] Declined Current smoking, Acuity too high N/A [address] [facility] [address] [phone] -- Internal Comment last updated by Caridad Dorsey 11/18/2023 0831 LVM for admissions.Caridad Dorsey, 11/18/2023 8:31 AM [facility] Declined Bed not available N/A 117[address] [facility] [address] [phone] -- The [facility], [facility] Declined Bed not available N/A [address] [facility] [address] [phone] -- [facility] Declined Bed not available N/A [address] [facility] [address] [phone] -- Home Medical Care No active coordination exists for this encounter. * Caridad Dorsey - 11/23/2023 9:42 AM CDT Continued Care and Services - Admitted Since 11/10/2023 Destination Service Provider Request Status Selected Services Address Phone Fax Patient Preferred [facility] Pending - Request Sent N/A [address] [facility] [phone] -- Internal Comment last updated by Caridad Dorsey 11/23/2023 0931 Admissions is currently reviewing .Caridad Dorsey, 11/23/2023 9:31 AM No bd available until next week. Caridad Dorsey, 11/18/2023 8:34 AM Nena Ernandez, A [facility] Pending - Request Sent N/A 100[address] [facility] [address] [phone] -- Internal Comment last updated by Caridad Dorsey 11/23/2023 0935 Looking for a bed in the [facility] .Caridad Dorsey, 11/23/2023 9:35 AM LVM for admissions.Caridad Dorsey, 11/19/2023 8:17 AM LVM for admissions.Caridad Dorsey, 11/18/2023 8:37 AM [facility] Pending - Request Sent N/A [address] [facility] [address] [phone] -- [facility] Pending - Request Sent N/A [address] [facility] [address] [phone] -- Internal Comment last updated by Caridad Dorsey 11/23/2023 0937 LVM for admissions .Caridad Dorsey, 11/23/2023 9:37 AM [facility] Declined Current smoking, Bariatric N/A [address] [facility] [address] [phone] -- [facility], [facility] Declined Distance N/A [address] [address] [phone] -- Internal Comment last updated by Lior Azul 11/22/2023 1218 This is too far from where patient lives. Lior Azul, 11/22/2023 12:18 PM Sent e mail to Allie .Caridad Dorsey, 11/22/2023 8:10 AM LVM for admissions .Caridad Dorsey, 11/19/2023 7:44 AM Sent email to Missy.Caridad Dorsey, 11/17/2023 2:24 PM [facility] Declined No Contract with Patient's Insurance Carrier N/A [address] [place] [address] [phone] -- [facility] Declined Current smoking, [place]/A [address] [facility] [id number] -- Internal Comment last updated by Caridad Dorsey 11/18/2023 0831 LVM for admissions.Caridad Dorsey, 11/18/2023 8:31 AM [facility] Declined Bed not available N/A [address] [facility] [address] [phone] -- The [facility], [facility] Declined Bed not available N/A [address] [facility] [address] [phone] -- Home Medical Care No active coordination [...] mgmt/ADL: 13 minutes Chayo Townsend OTR/L Pager: Send[facility]le[facility] OT Department Problem: Loss of Humboldt With ADLs, Risk for Goal: Will complete lower body dressing Description: Patient will complete lower body dressing with Modified H[place]t (6). Outcome: In progress Goal: Will toilet self Description: Patient will toilet self with Modified [place] (6). Outcome: In progress * Arden Elena [...] gait with or without AD, static/dynamic balance. APPAREL TRIMMINGS SALES REPRESENTATIVE Appropriate: Yes Arden Elena PTA 11/22/2023 Pager: Lisa PT Dept Problem: Decreased Transfer Skills Goal: Patient will transfer sit to/from stand Description: Patient will transfer sit to/from stand while Heel touch WB on L LE in post-op shoe with (6) Modified Humb[place]t in order to mobilize in home by [...] 12:09 PM CDTSummary: DC Planning DC Planning [facility] Minnie RN - O: [phone] Fpc RN is calling her asking her when [...] agrees with sending referrals to SNFs around [place]. He wants CC to let sister know [...] bedtime. -Continue Amlodipine 10mg Daily - Resume APPAREL TRIMMINGS SALES REPRESENTATIVE losartan 50mg PO Daily when Cr is closer to baseline (1.0) Acute Kidney Injury Monitor urine output and BMP closely. Paranoid schizophrenia - continue plane captain escitalopram 20mg qhs, trazodone 50mg qhs, prazosin 1mg qhs (ordered) - receives outpatient paliperidone (Invega) IM every 4 weeks for schizophrenia at [facility], unclear when last dose was. Would give [...] the patient on the date of the proposal lead writer's note. I discussed with the proposal lead writer of the note and agree with their findings and plan documented in the proposal lead writer's note from above. Any revisions by [...] bedtime. -Continue Amlodipine 10mg Daily - Resume APPAREL TRIMMINGS SALES REPRESENTATIVE losartan 50mg PO Daily when Cr is closer to baseline (1.0) Acute Kidney Injury Monitor urine output and BMP closely. Paranoid schizophrenia - continue plane captain escitalopram 20mg qhs, trazodone 50mg qhs, prazosin 1mg qhs (ordered) - receives outpatient paliperidone (Invega) IM every 4 weeks for schizophrenia at [facility], unclear when last dose was. Would give [...] are above goal here (FPG goal <150). APPAREL TRIMMINGS SALES REPRESENTATIVE lantus 30 units BID, lispro 10 units TID AC, metformin 500mg BID. A1c 6.8% on 07/27/23. Complications include h/o diabetes related infections. Hold APPAREL TRIMMINGS SALES REPRESENTATIVE metformin while admitted. Continue statin. 11/12 got 25u lantus (<0.2/kg) and 35u aspart. Likely needs increase in insulin dosing but also use caution with impaired renal clearance / worsening renal function and this can contribute to hypoglycemia. Serum glucose levels are slightly improved on APPAREL TRIMMINGS SALES REPRESENTATIVE regimen of 30 U daily Lantus. Serum [...] by facility provider. Paranoid schizophrenia - restarted APPAREL TRIMMINGS SALES REPRESENTATIVE meds (escitalopram 20mg qhs, trazodone 50mg qhs, [...] outpatient on 11/25 or 2 Resume patient's APPAREL TRIMMINGS SALES REPRESENTATIVE losartan 50mg PO daily when Cr is [...] changes can be done by his current alf; I encouraged him to discuss that with his primary team and trimming caser. Amenable to plan, looking forward to leaving [...] standpoint. Patient follows with Dr Hayden in [facility] and would prefer to follow up with him upon discharge. We are happy to schedule anappointment with patient if he wishes to follow up with our team. Please page masonry installer resident with questions. Interval History Patient was [...] and BMP closely. Paranoid schizophrenia - continue plane captain escitalopram 20mg qhs, trazodone 50mg qhs, prazosin 1mg qhs (ordered) - receives outpatient paliperidone (Invega) IM every 4 weeks for schizophrenia at [facility], unclear when last dose was. Would give [...] are above goal here (FPG goal <150). APPAREL TRIMMINGS SALES REPRESENTATIVE lantus 30 units BID, lispro 10 units TID AC, metformin 500mg BID. A1c 6.8% on 07/27/23. Complications include h/o diabetes related infections. Hold APPAREL TRIMMINGS SALES REPRESENTATIVE metformin while admitted. Continue statin. 11/12 got 25u lantus (<0.2/kg) and 35u aspart. Likely needs increase in insulin dosing but also use caution with impaired renal clearance / worsening renal function and this can contribute to hypoglycemia. Serum glucose levels are slightly improved on APPAREL TRIMMINGS SALES REPRESENTATIVE regimen of 30 U daily Lantus. Serum glucose levels better controlled today and more consistent in the 126 - 165 range. Continue current dosing for now with monitoring of serum glucose levels. Paranoid schizophrenia - restarted APPAREL TRIMMINGS SALES REPRESENTATIVE meds (escitalopram 20mg qhs, trazodone 50mg qhs, prazosin 1mg qhs). Given paliperidone (Invega) IM on 11/12/23 (due every 4 weeks for schizophrenia) Tobacco use - offer nicotine patches, gum, lozenges while inpatient H/o TBI Obesity RECOMMENDATIONS 11/15/23 Continue Lantus to 30 U qd Continuing amlodipine, monitoring BP to determine if second agent needed with recent improvement Resume patient's APPAREL TRIMMINGS SALES REPRESENTATIVE losartan 50mg PO daily when Cr is closer to baseline (likely ~1.0) Strict I/O, monitor UOP. Avoid nephrotoxins (IV contrast, NSAIDs), renal dosing of meds Medicine service will sign off tomorrow 11/20 if clinical stability/improvement continues. Please page Hospitalist Consult A on [employer] for any further issues or questions. SUBJECTIVE/Events [...] MD [facility] Medicine * Scar Leyva MD - 11/19/2023 [...] are above goal here (FPG goal <150). APPAREL TRIMMINGS SALES REPRESENTATIVE lantus 30 units BID, lispro 10 units TID AC, metformin 500mg BID. A1c 6.8% on 07/27/23. Complications include h/o diabetes related infections. Hold APPAREL TRIMMINGS SALES REPRESENTATIVE metformin while admitted. Continue statin. 11/12 got 25u lantus (<0.2/kg) and 35u aspart. Likely needs increase in insulin dosing but also use caution with impaired renal clearance / worsening renal function and this can contribute to hypoglycemia. Serum glucose levels are slightly improved on APPAREL TRIMMINGS SALES REPRESENTATIVE regimen of 30 U daily Lantus. One reading of 69 yesterday - unclear if patient had any symptoms. Continue current dosing for now with monitoring of serum glucose levels. Paranoid schizophrenia - restarted APPAREL TRIMMINGS SALES REPRESENTATIVE meds (escitalopram 20mg qhs, trazodone 50mg qhs, prazosin 1mg qhs). Given paliperidone (Invega) IM on 11/12/23 (due every 4 weeks for schizophrenia) Tobacco use - offer nicotine patches, gum, lozenges while inpatient H/o TBI Obesity RECOMMENDATIONS 11/15/23 Continue Lantus to 30 U qd Continuing amlodipine, monitoring BP to determine if second agent needed with recent improvement Resume patient's APPAREL TRIMMINGS SALES REPRESENTATIVE losartan 50mg PO daily when Cr is closer to baseline (likely ~1.0) Strict I/O, monitor UOP. Avoid nephrotoxins (IV contrast, NSAIDs), renal dosing of meds Medicine will continue to follow. Please page Hospitalist Consult A on [employer] for any further issues or questions. SUBJECTIVE/Events [...] d/t prioritisation/time constraints. Kenrick Fisher, PT License #[id number] PT Tel #: [phone] On TelD'Shane ServicesQ or [employer]era * Nicola Vasquez MD - 11/19/2023 11:54 [...] 2/2 uncontrolled Td2m. Paranoid schizophrenia - continue plane captain escitalopram 20mg qhs, trazodone 50mg qhs, prazosin 1mg qhs (ordered) - receives outpatient paliperidone (Invega) IM every 4 weeks for schizophrenia at [facility], unclear when last dose was. 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 male pmhx of T2DM with prior right toe amputations [facility], s/p I&D x 2, currently [...] 1 of 2 Imaging results: Reviewed in [facility] Gulshan José MD ID fellow, [...] RN - 11/19/2023 10:39 AM CDT 11/19/23 [facility] Rapid Rounds Attendance Charge nurse;manager energy;wallboard worker Expected Discharge Disposition SNF (TCU) Today [...] mgmt/ADL: 23 minutes Chayo Townsend OTR/L Pager: EasyCopay OT Department Problem: Loss of [place]umboldt With ADLs, Risk for Goal: Will complete lower body dressing Description: Patient will complete lower body dressing with Modified [place]t (6). Outcome: In progress Goal: Will toilet self Description: Patient will toilet self with Modified [place]t (6). Outcome: In progress * Paula Black [...] standpoint. Patient follows with Dr Hayden in [facility] and would prefer to follow up with him upon discharge. We are happy to schedule anappointment with patient if he wishes to follow up with our team. Please page masonry installer resident with questions. Interval History Patient was [...] Pager: Lisa OT Department Problem: Loss of [place] With ADLs, Risk for Goal: Will complete lower body dressing Description: Patient will complete lower body dressing with Modified [place] (6). Outcome: In progress Goal: Will toilet self Description: Patient will toilet self with Modified [place] (6). Outcome: In progress * Kenrick Fisher Chi, PT - 11/18/2023 3:23 PM CDT Problem: Decreased Transfer Skills Goal: Patient will transfer sit to/from stand Description: Patient will transfer sit to/from stand while Heel touch WB on L LE in post-op shoe with (6) Modified [place] in order to mobilize in home by [...] up. Reconfirmed that he lives in an RETIREMENT- a 1 floor building. Has his own room w a toilet inside. He shares bathing facilities wother residents in the house. He eats his meals and snacks in the dining room. He has NO stairs to negotiate. O:Forest Fire Control Officer Used: None needed Mental Status Mental Status: [...] remain heel touch WB on L LE. APPAREL TRIMMINGS SALES REPRESENTATIVE Appropriate: Yes Kenrick Fisher, PT 11/18/2023 Pager: [...] are above goal here (FPG goal <150). APPAREL TRIMMINGS SALES REPRESENTATIVE lantus 30 units BID, lispro 10 units TID AC, metformin 500mg BID. A1c 6.8% on 07/27/23. Complications include h/o diabetes related infections. Hold APPAREL TRIMMINGS SALES REPRESENTATIVE metformin while admitted. Continue statin. 11/12 got 25u lantus (<0.2/kg) and 35u aspart. Likely needs increase in insulin dosing but also use caution with impaired renal clearance / worsening renal function and this can contribute to hypoglycemia. Serum glucose levels are slightly improved today with increase in Lantus to 28 U; increasing today to APPAREL TRIMMINGS SALES REPRESENTATIVE dose of 30 U Lantus daily. Paranoid schizophrenia - restarted [employer] SALES REPRESENTATIVE meds (escitalopram 20mg qhs, trazodone 50mg qhs, prazosin 1mg qhs). Given paliperidone (Invega) IM on 11/12/23 (due every 4 weeks for schizophrenia) Tobacco use - offer nicotine patches, gum, lozenges while inpatient H/o TBI Obesity RECOMMENDATIONS 11/15/23 Increased Lantus to 30 U qd Continuing amlodipine, carvedilol discontinued as patient noted some dizziness and BP now near goal. Resume patient's [employer]PAREL [employer] SALES REPRESENTATIVE losartan 50mg PO daily when Cr is closer to baseline (likely ~1.0) Strict I/O, monitor UOP. Avoid nephrotoxins (IV contrast, NSAIDs), renal dosing of meds Medicine will continue to follow. Please page Hospitalist Consult A on telKimera Systemsq for any further issues or questions. SUBJECTIVE/Events of Past 24 Hours: Hospital Day: 8 Mr Low feels good today; more relaxed. Pain controlled. Hoping for discharge soon; he's curiousif his sister might be able to take him home tomorrow, or potentially to a facility (?[facility]?) for extra cares and assistance [...] [facility] Medicine * Jabari Colby RN - 11/18/2023 [...] Phone Fax Patient Preferred [facility] Pending - Request Sent N/A [address] [address] [phone] -- Internal Comment last updated by Caridad Dorsey 11/19/2023 0745 LVM for admissions .Caridad Dorsey, 11/19/2023 7:44 AM Sent email to [facility].Caridad Dorsey, 11/17/2023 2:24 PM Nena [facility], [facility] Pending - Request Sent N/A [address] [facility] [address] [phone] -- Internal Comment last updated by Caridad Dorsey 11/19/2023 0818 LVM for admissions.Caridad Dorsey, 11/19/2023 8:17 AM LVM for admissions.Caridad Dorsey, 11/18/2023 8:37 AM [facility] Declined N/A [address] [facility] [address] -- [facility] Declined No Contract with Patient's Insurance Carrier N/A [address] [place] [address] [phone] -- [facility] Declined Current smoking, Acuity too high N/A [id number] [facility] [address] [phone] -- Internal Comment last updated by Caridad Dorsey 11/18/2023 0831 LVM for admissions.Caridad Dorsey, 11/18/2023 8:31 AM [facility] Declined Bed not available N/A [address] [facility] [address] -- Internal Comment last updated by Caridad Dorsey 11/18/2023 0834 No bd available until next week. Caridad Dorsey, 11/18/2023 8:34 AM [facility] Declined Bed not available N/A [address] [facility] [address] -- Home Medical [facility] No active coordination exists for this encounter. 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 male pmhx of T2DM with prior right toe amputations transferred from [facility] forurnier's gangrene, s/p I&D x 2, currently [...] 11/17/[address] Mullen-operative note available in [facility] Seen this a.m. and was [...] 1 of 2 Imaging results: Reviewed in [facility] Gulshan José MD, 11/18/2023 8:26 [...] standpoint. Patient follows with Dr Hayden in [facility] and would prefer to follow up with him upon discharge. We are happy to schedule anappointment with patient if he wishes to follow up with our team. Please page masonry installer resident with questions. Patient was discussed with masonry installer staff, Interval History Patient was seen and [...] Abdomen soft, non-tender, non-distended. Labs / Imaging: [facility] Lab Results Component Value Date/Time NA [...] urine output closely. Paranoid schizophrenia - continue plane captain escitalopram 20mg qhs, trazodone 50mg qhs, prazosin 1mg qhs (ordered) - receives outpatient paliperidone (Invega) IM every 4 weeks for schizophrenia at [facility], unclear when last dose was. Would give [...] admitted on 11/10/2023 as a transfer from [facility] for emergent surgical debridement for demar's [...] renal dysfunction, though UOP is acceptable. Holding [employer] SALES REPRESENTATIVE losartan 50mg daily. Started amlodipine 10 mg [...] are above goal here (FPG goal <150). APPAREL TRIMMINGS SALES REPRESENTATIVE lantus 30 units BID, lispro 10 units TID AC, metformin 500mg BID. A1c 6.8% on 07/27/23. Complications include h/o diabetes related infections. Hold APPAREL [employer]MINGS SALES REPRESENTATIVE metformin while admitted. Continue statin. 11/12 got [...] and diet improve. Paranoid schizophrenia - restarted [employer] SALES REPRESENTATIVE meds (escitalopram 20mg qhs, trazodone 50mg qhs, prazosin 1mg qhs). Given paliperidone (Invega) IM on 11/12/23 (due every 4 weeks for schizophrenia) Tobacco use - offer nicotine patches, gum, lozenges while inpatient H/o TBI Obesity RECOMMENDATIONS 11/15/23 Continue Lantus 28 U daily for now; may need to continue titration as diet and renal function improve Began carvedilol and amlodipine as above Resume patient's [employer]PAREL TRIMMINGS SALES REPRESENTATIVE losartan 50mg PO daily when Cr is [...] check back tomorrow. Shannan Partida OTR/Brian Pager: [phone] * Mabel Mathews RN - 11/17/2023 11:27 AM CDT TRANSFER IN NOTE D: Patient transferred in to STNU 2 from PACU at 1100. Patient condition on arrival: Stable, a/o X4, VSS, on RA, . Patient Belonging 11/10/2023 1440 Reason for Inventory: ED/APS Admission Patient or family informed of Patient Valuables and Belongings Policy (#[id number]): Due to patient condition, [facility] staff will inventory and secure [...] AM CDT 11/17/231033 Rapid Rounds Attendance Physician;Charge nurse;manager energy;wallboard worker;Bedside nurse Expected Discharge Disposition SNF (TCU for wound care) Today we still await: Procedure (Comment) (toe amputation today) Case Management Discharge Milestones Documentation CM Assessment Completed? Yes Patient/Family agree w/DC plan? Yes Transportation Plan WC/Taxi/Stretcher Prior Auth/Pre-Admit Screen (!) Not completed 11/17/231033 Rapid Rounds Attendance Physician;Charge nurse;manager energy;wallboard worker;Bedside nurse Expected Discharge Disposition SNF (TCU for wound care) Today we still await: Procedure (Comment) (toe amputation today) Case Management Discharge Milestones Documentation CM Assessment Completed? Yes Patient/Family agree w/DC plan? Yes Transportation Plan WC/Taxi/Stretcher Prior Auth/Pre-Admit Screen (!) Not completed Pt will DC to TCU, as his alf cannot do the daily dressing changes to [...] discharge. Patient follows with Dr Hayden in [facility] CHIEF COMPLAINT: Immediate postop HISTORY OF [...] urine output closely. Paranoid schizophrenia - continue plane captain escitalopram 20mg qhs, trazodone 50mg qhs, prazosin 1mg qhs (ordered) - receives outpatient paliperidone (Invega) IM every 4 weeks for schizophrenia at [facility], unclear when last dose was. Would give [...] Fisher, PT License #[id number] PT Tel #: [phone] On PoweredAnalytics or Mbite * Nico Hogue MD - 11/16/2023 9:49 [...] Actinomyces species Medicine consult (11/14): Resume patient's [employer]PAR[employer]MINGS SALES REPRESENTATIVE losartan 50mg PO daily when Cr is [...] urine output closely. Paranoid schizophrenia - continue plane captain escitalopram 20mg qhs, trazodone 50mg qhs, prazosin 1mg qhs (ordered) - receives outpatient paliperidone (Invega) IM every 4 weeks for schizophrenia at [facility], unclear when last dose was. Would give [...] are above goal here (FPG goal <150). APPAREL TRIMMINGS SALES REPRESENTATIVE lantus 30 units BID, lispro 10 units TID AC, metformin 500mg BID. A1c 6.8% on 07/27/23. Complications include h/o diabetes related infections. Hold APPAREL TRIMMINGS SALES REPRESENTATIVE metformin while admitted. Continue statin. 11/12 got [...] renal dysfunction, though UOP is acceptable. Holding APPAREL TRIMMINGS SALES REPRESENTATIVE losartan 50mg daily. Agree with prn hydralazine but would changeto PO. Could start new agent (such as amlodipine) but patient should ultimately resume ARB once renal function is improved Paranoid schizophrenia - restarted [employer]PAREL [employer]MINGS SALES REPRESENTATIVE meds (escitalopram 20mg qhs, trazodone 50mg qhs, prazosin 1mg qhs). Given paliperidone (Invega) IM on 11/12/23 (due every 4 weeks for schizophrenia) Tobacco use - offer nicotine patches, gum, lozenges while inpatient H/o TBI Obesity RECOMMENDATIONS 11/15/23 Continue Lantus 28 U daily for now; may need to continue titration as diet and Resume patient's [employer]MINGS SALES REPRESENTATIVE losartan 50mg PO daily when Cr is [...] follow. Please page Hospitalist Consult A on [employer] for any further issues or questions. SUBJECTIVE/Events [...] brief walk in hallway- pt tends to pickle sorter walker versus push- does not use walker [...] provide clear picture of assistance available at [facility]- however, per chart review only receives assistance [...] mgmt/ADL: 28 minutes Chayo Townsend OTR/L Pager: EasyCopay OT Department Problem: Loss of [place] With ADLs, Risk for Goal: Will complete lower body dressing Description: Patient will complete lower body dressing with Modified [place] (6). 11/15/2023 1400 by Chayo Townsend OTR/L Outcome: In progress 11/15/2023 1357 by Chayo Townsend OTR/L Outcome: In progress Goal: Will toilet self Description: Patient will toilet self with Modified [place] (6). 11/15/2023 1400 by Chayo Townsend OTR/L Outcome: In progress 11/15/2023 1357 by Chayo Townsend OTR/L Outcome: In progress * Kenrick Fisher Chi, PT - 11/15/2023 11:23 AM CDT Images from the original note were not included. Problem: Decreased Transfer Skills Goal: Patient will transfer sit to/from stand Description: Patient will transfer sit to/from stand with (6) Modified [place] in order to mobilize in home by 11/28/23. Outcome: In progress Problem: Decreased Ambulatory Skills Goal: Improve gait Description: Ambulate 100 meters using No assistive devices with (6) Modified [place] in orderto mobilize in home and community [...] transfer supine to/from sit with (6) Modified [place] in order to mobilize in/out of bed by 11/28/23. Outcome: Met Physical Therapy Progress Note PT Discharge Recommendations Discharge Recommendations: Safety risk for discharge home today. Barriers to discharge to home/community: Insufficient activity tolerance;Pain;Caregiver availability not yet confirmed. Would be good if someone from the treatment team calls his RETIREMENT to see how much help he can [...] sometimes does not do stairs, at his RETIREMENT. Ambulated independently without an AD. Said hiswalking [...] kind of help he gets/can get from RETIREMENT staff and if he needs to do [...] vs try no AD. Try stairs eventually? APPAREL TRIMMINGS SALES REPRESENTATIVE Appropriate: Yes Kenrick Fisher, PT 11/15/2023 Pager: [...] Actinomyces species Medicine consult (11/14): Resume patient's [employer]PAR[employer] TRIMMINGS SALES REPRESENTATIVE losartan 50mg PO daily when Cr is [...] urine output closely. Paranoid schizophrenia - continue plane captain escitalopram 20mg qhs, trazodone 50mg qhs, prazosin 1mg qhs (ordered) - receives outpatient paliperidone (Invega) IM every 4 weeks for schizophrenia at [facility], unclear when last dose was. Would give [...] Crawford LGSW - 11/15/2023 9:39 AM CDT B2B Sales Professional Progress Note Spoke to SABINE Hartman at [facility], where patient resides. Informed her pt will likely be ready for discharge towards the end of the week per MDR. Asked if they are able to assist with daily wound care. Unfortunately facility cannot help with this. The facility helps with med management, meals, housekeeping, and laundry. May have to explore options for home health or TCU for woundcare. [facility] - [phone] opt 3. Dominga Crawford LGSW, 11/15/2023 2:59 [...] pt may be able to return to alf given participation with PT on 11/13 but [...] are above goal here (FPG goal <150). APPAREL TRIMMINGS SALES REPRESENTATIVE lantus 30 units BID, lispro 10 units TID AC, metformin 500mg BID. A1c 6.8% on 07/27/23. Complications include h/o diabetes related infections. Hold APPAREL TRIMMINGS SALES REPRESENTATIVE metformin while admitted. Continue statin. 11/12 got 25u lantus (<0.2/kg) and 35u aspart. Likely needs increase in insulin dosing but also use caution with impaired renal clearance / worsening renal function and this can contribute to hypoglycemia. HTN - above goal overnight. ARB is being held. Also may be hypervolemic given renal dysfunction, though UOP is acceptable. Holding [employer]EL [employer]MINGS SALES REPRESENTATIVE losartan 50mg daily. Agree with prn hydralazine but would changeto PO. Could start new agent (such as amlodipine) but patient should ultimately resume ARB once renal function is improved Paranoid schizophrenia - restarted [employer] SALES REPRESENTATIVE meds (escitalopram 20mg qhs, trazodone 50mg qhs, prazosin 1mg qhs). Given paliperidone (Invega) IM on 11/12/23 (due every 4 weeks for schizophrenia) Tobacco use - offer nicotine patches, gum, lozenges while inpatient H/o TBI Obesity RECOMMENDATIONS 11/15/23 Increase lantus to 28 units q24h Resume patient's [employer] SALES REPRESENTATIVE losartan 50mg PO daily when Cr is [...] - 11/14/2023 2:55 PM CDT SURGERY PROGRESS NOTE--INFORMATION SECURITY OFFICER Matt Low : 1980 Sex: male SIGNIFICANT [...] urine output closely. Paranoid schizophrenia - continue plane captain escitalopram 20mg qhs, trazodone 50mg qhs, prazosin 1mg qhs (ordered) - receives outpatient paliperidone (Invega) IM every 4 weeks for schizophrenia at [facility], unclear when last dose was. Would give [...] assist Disposition: CHRIS Cordero Ma MS3 11/14/2023 [facility] Department of Surgery Pager: via telemediq RESIDENT [...] recent) Autumn Lamar PharmD 11/14/2023 07:56 Pager: (TelKimera Systemsq) * Shani Shaw MD - 11/14/2023 7:18 [...] are above goal here (FPG goal <150). [employer]MINGS SALES REPRESENTATIVE lantus 30 units BID, lispro 10 units TID AC, metformin 500mg BID. A1c 6.8% on 07/27/23. Complications include h/o diabetes related infections. Hold [employer] SALES REPRESENTATIVE metformin while admitted. Continue statin. 11/12 got 25u lantus (<0.2/kg) and 35u aspart. Likely needs increase in insulin dosing but also use caution with impaired renal clearance / worsening renal function and this can contribute to hypoglycemia. HTN - above goal overnight. ARB is being held. Also may be hypervolemic given renal dysfunction, though UOP is acceptable. Holding [employer]INGS SALES REPRESENTATIVE losartan 50mg daily. Agree with prn hydralazine but would changeto PO. Could start new agent (such as amlodipine) but patient should ultimately resume ARB once renal function is improved Paranoid schizophrenia - restarted [employer] SALES REPRESENTATIVE meds (escitalopram 20mg qhs, trazodone 50mg qhs, [...] recent) Autumn Lamar PharmD 11/13/2023 15:25 Pager: ([email or web address]) * Nico Hogue MD - 11/13/2023 8:25 [...] species 11/10/2023 1713 11/12/2023 1417 ANAEROBE CULTURE [[id number]] (Abnormal) Tissue from Perineal 2:Perineal tissue Preliminary result Component Value Preliminary Report Positive Culture Many mixed anaerobes present. Culture in progress. POS 11/10/2023 17111/12/2023 1441 TISSUE CULTURE:INCLUDES GRAM STAIN [[id number]] (Abnormal) Tissue from Perineal 2:Perineal tissue Preliminary [...] clusters. POS 11/10/2023 17111/12/2023 1416 ANAEROBE CULTURE [[id number]] (Abnormal) Swab from Perineal 1: Perineal tissue swab Preliminary result Component Value Preliminary Report Moderate Anaerococcus vaginalis isolated. Culture in progress. POS Organism ANAEROCOCCUS VAGINALIS POS 11/10/2023 17111/12/2023 1534 WOUND CULTURE:GRAM STAIN OPTIONAL [[id number]] (Abnormal) Swab from Perineal 1: Perineal tissue [...] NPO with excellent blood sugarcontrol. - hold plane captain metformin while admitted, resume on discharge [...] hypertension while here - agree with holding plane captain antihypertensives (losartan 50mg daily, , consider restarting closer to DC - restart plane captain rosuvastatin 10mg qHS Paranoid schizophrenia - restart plane captain escitalopram 20mg qhs, trazodone 50mg qhs, prazosin 1mg qhs (ordered) - receives outpatient paliperidone (Invega) IM every 4 weeks for schizophrenia at [facility], unclear when last dose was. Would give [...] RECOMMENDATIONS: Demar's Gangrene Necrotizing fasciitis Transferred from [facility] for scrotal swelling, pain, concern for Demar's [...] NPO with excellent blood sugarcontrol. - hold plane captain metformin while admitted, resume on discharge [...] hypertension while here - agree with holding plane captain antihypertensives (losartan 50mg daily, , consider restarting closer to DC - restart plane captain rosuvastatin 10mg qHS Paranoid schizophrenia - restart plane captain escitalopram 20mg qhs, trazodone 50mg qhs, prazosin 1mg qhs (ordered) - receives outpatient paliperidone (Invega) IM every 4 weeks for schizophrenia at [facility], unclear when last dose was. Would give dose here if due and if available on formulary. Tobacco use - offer nicotine patches, gum, lozenges while inpatient - cessation counseling as able (pt unable to engage today) H/o TBI Obesity PLAN: Neuro/Pain Control: Multimodal Scheduled: Tylenol, Gabapentin, cyclobenzaprine PRN: Hydromorphone CV: Monitor blood pressure and pulse and intervene as needed. Restart plane captain rosuvastatin 10mg qHS Pulm: Encourage incentive [...] Disposition: Nico Murray MD, 11/13/2023 8:25 AM [facility] Department of Surgery Pager: via telemediq Surgery [...] Type 2 DM with neuropathy, retinopathy - APPAR[employer]MINGS SALES REPRESENTATIVE lantus 30 units BID, lispro 10 units TID AC, [id number] BID. A1c 6.8% on 07/27/23. Complications include h/o diabetes related infections. Hold AP[employer]EL [employer]MINGS SALES REPRESENTATIVE metformin while admitted. Continue statin. HTN - mostly at goal off antihypertensives. Holding [employer]MINGS SALES REPRESENTATIVE losartan 50mg daily Paranoid schizophrenia - restarted [employer]MINGS SALES REPRESENTATIVE meds (escitalopram 20mg qhs, trazodone 50mg qhs, [...] follow. Please page Hospitalist Consult A on [employer] for any further issues or questions. SUBJECTIVE/Events [...] recent) Gala Salinas, Jaxon 11/12/2023 14:59 Pager: (TelCostPrize) * Gracia Kumar, RN - 11/12/2023 1:00 PM CDT 11/12/23 1254 Forest Fire Control Officer Used. Forest Fire Control Officer Used None needed (interview conducted with [facility] staff) Social Information Living Situation detention Facility Admitted From hospital (Admitted from [facility]) Name of facility [facility] Patient medically appropriate to transfer back to outside hospital? No Patient Identified Support System [facility] staff Services Receiving RUBBER PRESS OPERATOR / Skilled Services;Case Management;Waivered services (see comment) Complex Medical Needs Other (see comment) Transportation Used for Discharge wound care Safety Concerns None Behavioral Health Concerns None Patient Family Goals Patient's Discharge Goal back to ID Family's Discharge Goal no family Plan/Interventions Expected Discharge Disposition Fpc Was Patient Choice Provided? No Who was Choice Provided to? Other (comment) (pt will return to [employer] SALES REPRESENTATIVE facility when medically stable) Patient Information Verification Verified demographic information, including SSN, Next of Kin, and Guardianship Yes Verified PCP Yes If post-acute placement is needed, have vaccination status needs been addressed? Yes Pt admitted from [facility] after transfer to there from alf for treatment of Demar's gangrene of perineal area * Nico Hogue MD - 11/12/2023 8:02 AM CDT SURGERY PROGRESS NOTE--INFORMATION SECURITY OFFICER Matt Low : 1980 Sex: male SIGNIFICANT [...] WBAT Activity: Ad celia/with assist Disposition: Nico Mruray MD, 11/12/2023 8:03 AM [facility] Department of Surgery Pager: via telemediq Surgery [...] Comments: RN: Gloria Velez RN Extension #: [id number] * Robert Kruse MDIV - 11/11/2023 1:43 PM CDT SPIRITUAL CARE VISIT SUMMARY Matt Low : 1980 Sex: male LOS: 1 day Reason for visit: Referral Assessment: Pt/family uncertain/anxious/frustrated;Pt/family coping/relieved Intervention: Compassionate support;Facilitate communication;Lead/support spiritual rituals Outcome: Situation assessed;Gratitude expressed;Ritual provided Notes: I met with Matt at bedside during rounds. Matt shared that he wanted a prayer for healing and confucianist of his health which I offered as requested. He had no other support needs at this time. Plan: Spiritual Care Team is available to support patient and family as needed via number [phone]. Robert Kruse MDIV, 11/11/2023 1:43 PM Number: [phone] * Hannah Boland RT - 11/11/2023 12:40 [...] male D: Matt Low was admitted to [facility] from PACU at 0600 for [place] gangrene [...] informed of Patient Valuables and Belongings Policy (#508114): Due to patient condition, [facility] staff will inventory and secure patient valuables Items Needing Securement: Cell phone Cell Phone Secured?: Yes Cell Phone Visually Damaged: Yes Patient Belongings: Clothing Clothing Comments: shirt, 1 shoe, 1 sock, * Gracia Tirado MDIV - 11/10/2023 3:26 PM CDT Open Pit Quarry Supervisor Stabilization Room Note Matt Low : 1980 Sex: male LOS: 0 days Initial Description: Matt Low with history of gangrene. Pt was responding appropriately to questions. Patient and Family Context: No family present. Pt came from a facility in [place]. Plan: Spiritual Care Team is available to support patient and family as needed via number [phone]. Gracia Tirado MDIV, 11/10/2023 3:27 PM Number: [phone] * Camilla Treviño, PharmD - 11/10/2023 2:38 [...] for 2 days. He was transferred from [place] for Demar's gangrene. He has a history of T2DM on 10u long acting insulin three times daily, situs inversus, and TBI several years ago and lives in a alf. CT at OSH showed gas in perineal [...] the patient on the date of the proposal lead writer's note. I discussed with the proposal lead writer of the note and agree with their findings and plan documented in the proposal lead writer's note from above. Any revisions by [...] medications. Assessment: Pertinent points to note: -- APPAREL TRIMMINGS SALES REPRESENTATIVE losartan, metformin and ibuprofen all discontinued due to ongoing acute kidney injury. I have reviewed the patient's medications for discharge and have discussed the necessary changes with the provider. Changes have been made and medication list updated and complete. Please page with any questions. Gala Salinas PharmD 11/24/2023 14:22 For questions regarding this note, please contact pharmacist on service at PharmD STN ([employer]) [phone]. If no response within needed timeframe, please contact central pharmacy via phone at [phone]. Planned discharge medications are: Medication List Medications [...] 2 Diabetes Reduced from twice daily dosing APPAREL TRIMMINGS SALES REPRESENTATIVE, per Medicine recommendations. insulin LISPRO 100 UNIT/ML Kwikpen Commonly known as: HumaLOG KwikPen Inject 6 UNITS subcutaneously 3 times daily before meals. Reduced from 10 units per dose APPAREL TRIMMINGS SALES REPRESENTATIVE, per Medicine recommendations. Invega Sustenna 156 MG/ML [...] follow. Patient follows with Dr Hayden in [place] APPAREL TRIMMINGS SALES REPRESENTATIVE Please page masonry installer resident with questions. Patient was seen with masonry installer staff, Dr. Black CHIEF COMPLAINT: Left hallux wound HISTORY OF PRESENT ILLNESS: Matt Low is a 43 y.o. male presenting with left hallux necrosis. Patient initially presented to [facility] for concern for foreigners gangrene [...] 74.09 Activity Intolerance Z 73.89 PRECAUTIONS [place] Fire Control Officer Used: None needed ACTIVITY Up ad Celia [...] Type 2 DM with neuropathy, retinopathy - APPAREL TRIMMINGS SALES REPRESENTATIVE lantus 30 units BID, lispro 10 units TID AC, [id number] BID. A1c 6.8% on 07/27/23. Complications include h/o diabetes related infections. Hold APPAR[employer]MINGS SALES REPRESENTATIVE metformin while admitted. Continue statin. HTN - mostly at goal off antihypertensives. Holding APPAREL TRIMMINGS SALES REPRESENTATIVE losartan 50mg daily Paranoid schizophrenia - restarted APPAREL [employer]MINGS SALES REPRESENTATIVE meds (escitalopram 20mg qhs, trazodone 50mg qhs, prazosin 1mg qhs). Given paliperidone (Invega) IM on 11/12/23 (due every 4 weeks for schizophrenia) Tobacco use - offer nicotine patches, gum, lozenges while inpatient Medical History No past medical history on file. SOCIAL HISTORY Information gathered from: Patient Home: alf in [place] Prior level of function: independent Baseline Ambulation: [...] Status: Oriented X 3, Alert, and Cooperative, [facility] Follows Direction: Yes, 1step OBJECTIVE Initial patient [...] when ready, stairs as able, standing balance. APPAR[employer]MINGS SALES REPRESENTATIVE Appropriate: Yes Participated in goal setting and treatment planning: Patient Agrees with goals and treatment plan: Patient - Yes. Che Garcia, PT 11/14/2023 Pager: [employer] PT Department * Guru Franco MD - 11/13/2023 1:14 PM CDTAssociated Order(s): CONSULT TO INFECTIOUS DISEASE ID-2 NEW CONSULT NOTE Matt Low 1980 male [id number] REASON FOR CONSULT: I was asked to see Matt Low by Zac Churchill regarding Demar's gangrene. ASSESSMENT: 43 y.o. 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, Guru Swan MD, 11/13/2023 1:14 PM [...] date) Patient is living in a/an : alf Prior Level of Function: ADLs/IADLs: Received assistance [...] month and year; not to place [facility]; intermittently follows 1 [...] (11/09 and 11/10). At baseline pt from alf. Pt unable to provide any social history [...] Eval: 18 minutes Therapist: EDWIN Alvarado/Brian Pager: [employer] Occupational Therapy Department * Sophie Barajas MD - 11/12/2023 10:07 AM CDTAssociated Order(s): CONSULT TO MEDICINE SERVICES INTERNAL MEDICINE CONSULT- STAFF Matt Low : 1980 Sex: male Reason for Consult: Diabetes management, antibiotic selection IMPRESSION AND RECOMMENDATIONS: Demar's Gangrene Necrotizing fasciitis Transferred from [facility] for scrotal swelling, pain, concern for Demar's [...] NPO with excellent blood sugarcontrol. - hold plane captain metformin while admitted, resume on discharge [...] hypertension while here - agree with holding plane captain antihypertensives (losartan 50mg daily, , consider restarting closer to DC - restart plane captain rosuvastatin 10mg qHS Paranoid schizophrenia - restart plane captain escitalopram 20mg qhs, trazodone 50mg qhs, prazosin 1mg qhs (ordered) - receives outpatient paliperidone (Invega) IM every 4 weeks for schizophrenia at [place], unclear when last dose was. Would give [...] long enough to participate indiscussion. Transferred from [facility] for scrotal pain and swelling, concern for [...] including pre-visit review of separately obtained history, [id number] interaction performing medically appropriate physical exam, patientcounseling/education, [...] 3:41 PM CDT Operative Report - PGY2 [facility] Matt Anne : 1980 Sex: M Procedure: [...] 6:07 PM CDT OPERATIVE REPORT - PGY5 [facility] Matt Low : 1980 Sex: male Procedure: [...] PM CDT Pt BIBA as transfer from [place]. 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 Pt given Ertapenem 1gm and Insulin 10 units APPAREL TRIMMINGS SALES REPRESENTATIVE. BS 400 at outside hospital. Pt is [...] Physical Therapy Inpatient Discharge Summary Stephanie Keyzena [id number] PT Discharge Recommendations DC Recommendations: Post-acute placement [...] LE in post-op shoe with (6) Modified [place] in order to mobilize in home by [...] Therapist: Kenrick Fisher PT Date: 11/24/2023 Pager: [facility] PT Department * Discharge non-MD/non-MIRI Summaries - Lior Azul - 11/25/2023 7:36 AM CDT Summary: DC to SNF Care Coordination Discharge Note Expected DC Date: 11/25/23 Expected DC Time: 13h30 Final Discharge Destination: Selected Continued Care - Admitted Since 11/10/2023 Destination Coordination complete. Service Provider Selected Services Address Phone Fax Patient Preferred [facility] [address] [place] [phone] -- Summary: Insurance approved Patient has been accepted to continue rehabing at the aforementioned post acute facility. Patient is on board with plan. CC spoke with patient in person in the room Fire Equipment Repairer Inspector also confirmed with Minnie REGALADO at . Also, DC summary faxed to [phone], via [employer]. WC ride has been ordered. STAMPER BLOCKER (Keyboard Teacher Buncher Hand) will schedule. Check [id number] for confirmation. Medical team is aware. They will work writing DC orders. CC sent DC orders to SNF by [employer] fax. Medical team is aware any controlled substances must be printed and signed to be sent in physical form to the TCU. PLEASE MAKE SURE RX IS COMPLETE. MAKE SURE QUANTITY IS ADDED. Also, PSC/AUTO SERVICE WRITER/RN will fax it to TCU olga (this is required so in case of pain during transport, pain control can be addressed) Bedside nurse: please confirm this is done. A [employer] thread has been started. CC will continue to follow until DC. Please use [employer] for any further questions. * Nursing Assessment [...] Townsend, OTR/L - 11/24/2023 12:59 PM CDT [facility] Occupational Therapy Discharge Summary Stephanie Low [...] subacute rehab. Patient Name: Stephanie Low MR#: [id number] Date of : 1980 Age: 43 y.o. [...] 1100) Patient is living in a/an : alf (11/13/23 1100) Prior Level of Function (APPAREL TRIMMINGS SALES REPRESENTATIVE): ADLs/IADLs: Received assistance from staff at residence [...] RN - 11/23/2023 4:39 PM CDT Per STUDIO GRIP no longer meets IP criteria, documentation in [...] Toe Head to Toe Assessment Shift Summary [id number] Pt is a/o X4 and can make [...] without difficulties. Follow established POC. Damari Brower, SAIBNE, 11/21/2023 6:19 AM Neurologic/Cognitive Assessment Within Defined [...] Cardiac Assessment Within Defined Limits except for: Hobbies [employer] Crafts Sales Representative - remote telemetry Respiratory Within defined limits [...] Limits except for: Heart sounds: S1, S2 [employer]obb[employer] Craft[employer] Sales Representative - remote telemetry Comments: Consistently sustaining SBP [...] Toe Head to Toe Assessment Shift Summary [id number] Pt is a/o X4 and can make [...] Cardiac Assessment Within Defined Limits except for: Hobb[employer] Craft[employer] Sales Representative - remote telemetry Respiratory Within defined limits [...] Palomo DPM - 11/17/2023 9:26 AM CDT [facility]mediate Post Operative Note Note written: Day of Surgery Patient Name: Matt Lwo ( ) OR Date: 11/17/2023 0834 Procedure(s) [...] Patient to the OR at 0800. This proposal lead writer called to notify SOLAR LAB TECHNICIANstaff nuclear weapons officer of hypertension. Pt had left the room prior to [facility] notifying this proposal lead writer of BP of 222/101. Vitals: 11/17/23 [...] wants to go outside to smoke, and proposal lead writer encouraged the patient not to go [...] Cardiac Assessment Within Defined Limits except for: Hobb[employer] Sales Representative - remote telemetry Respiratory Assessment Within Defined [...] Cardiac Assessment Within Defined Limits except for: Hobb[employer] Sales Representative - remote telemetry Respiratory Assessment Within Defined [...] Defined Limits except for: Chest Pain: No [employer] Sales Representative - remote telemetry Pacemaker: Pacemaker: No Respiratory [...] Cardiac Assessment Within Defined Limits except for: Hobb[employer] Craft[employer] Sales Representative - remote telemetry Comments: NSR Respiratory Within [...] Cardiac Assessment Within Defined Limits except for: Hobb[employer] Crafts Sales Representative - remote telemetry Respiratory Assessment Within Defined [...] Cardiac: Assessment Within Defined Limits except for: Hobb[employer] Crafts Sales Representative - remote telemetry Respiratory: Assessment Within Defined [...] Note - PGY-1 Matt Low 43 y.o. [id number] Paged at 03:34 on 11/14/23 for elevated [...] for SBP > 180 - Potentially resume [employer]MINGS SALES REPRESENTATIVE losartan per primary team in the AM [...] Cardiac Assessment Within Defined Limits except for: Hobb[employer] Sales Representative - remote telemetry Respiratory Assessment Within Defined [...] Cardiac Assessment Within Defined Limits except for: Hobb[employer] Sales Representative - remote telemetry Pacemaker: Pacemaker: No Respiratory [...] Cardiac Assessment Within Defined Limits except for: Hobb[employer] Sales Representative - remote telemetry Respiratory Assessment Within Defined [...] Cardiac Assessment Within Defined Limits except for: Hobb[employer] Sales Representative - remote telemetry Respiratory Assessment Within Defined [...] Cardiac Assessment Within Defined Limits except for: Hobb[employer] Sales Representative - remote telemetry Respiratory Assessment Within Defined [...] Nichols MD - 11/11/2023 3:13 PM CDT [facility] Post Operative Note Note written: Day [...] Osborn MD - 11/10/2023 5:07 PM CDT [facility] Post Operative Note Note written: Day [...] at time of review in ED - plane captain abx administered * ED Stabilization Note - Allyssa Drummond MD - 11/10/2023 2:43 PM CDT Emergency Department Stabilization Room Note [facility] Arrival Date and Time: 11/10/2023 2:28 PM MEDICAL TEAM Attending: MD MARCELLUS Grullon Resident: Allyssa Drummond MD RN: Enmanuel HCA: Doreen Consultants: General surgery PRE-HOSPITAL EVENTS & HISTORY Matt Low is a 43 y.o. 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 2 days ago he noticed pain in his perineum, it has gotten worse over the past several days. His girlfriend urged him to go to the hospital today and the physicians at [place] were concerned for Demar'sgangrene and transferred him [...] CRP 30, procal 0.83, WBC 20 at [place]. We will draw an ESR and our [...] POC Glucose 140(H) 70 - 100 mg/dL [facility] - POINT OF CARE Blood 11/25/2023 6:03 AM CDT Jessica Grullon MD LABORATORY [facility] POINT OF [facility] [address] [place] [address], [place] * (ABNORMAL) POC GLUCOSE (11/24/2023 8:47 PM CDT) POC Glucose 156(H) 70 - 100 mg/dL [facility] POINT OF CARE Blood 11/24/2023 8:47 PM CDT Jessica Grullon MD LABORATORY Performing Organization Address City/[facility]/ZIP Co de Phone Number [facility] [address] [place] [address], [place] * (ABNORMAL) POC GLUCOSE (11/24/2023 4:56 PM CDT) POC Glucose 177(H) 70 - 100 mg/dL [facility] Blood 11/24/2023 4:56 PM CDT Jessica Grullon MD LABORATORY Performing Organization Address City/[facility]/ZIP Co de Phone Number [facility] [address] [place] [phone], [place] * (ABNORMAL) POC GLUCOSE (11/24/2023 11:22 AM CDT) POC Glucose 146(H) 70 - 100 mg/dL [facility] POINT OF CARE Blood 11/24/2023 11:2 2 AM CDT Jessica Grullon MD LABORATORY Performing Organization Address City/[facility]/ZIP Co de Phone Number [facility] [address] [place] [phone], [place] * (ABNORMAL) POC GLUCOSE (11/24/2023 6:03 AM CDT) POC Glucose 147(H) 70 - 100 mg/dL [facility] POINT OF CARE Blood 11/24/2023 6:03 AM CDT Jessica Grullon MD LABORATORY [facility] [address] [place] [phone], [place] * (ABNORMAL) POC GLUCOSE (11/23/2023 7:52 PM CDT) POC Glucose 160(H) 70 - 100 mg/dL [facility] Blood 11/23/2023 7:52 PM CDT Jessica Grullon MD LABORATORY Performing Organization Address City/[facility] [[email or web address]] Co de Phone Number [facility] [address] [place] [phone], [place] * (ABNORMAL) POC GLUCOSE (11/23/2023 4:18 PM CDT) POC Glucose 156(H) 70 - 100 mg/dL [facility] Blood 11/23/2023 4:18 PM CDT Jesscia Grullon MD LABORATORY Performing Organization Address City/[facility] [[email or web address]] Co de Phone Number [facility] [address] [place] [phone], [place] * (ABNORMAL) POC GLUCOSE (11/23/2023 11:13 AM CDT) POC Glucose 182(H) 70 - 100 mg/dL [facility] Blood 11/23/2023 11:1 3 AM CDT Jessica Grullon MD LABORATORY Performing Organization Address City/[facility]/ZIP Co de Phone Number [facility] [address] [place] [phone], [place] * (ABNORMAL) PANEL BASIC METABOLIC (BMP) (11/23/2023 8:31 AM CDT) CO2 24 22 - 30 mmol/L [facility] Glucose 192(H) 70 - 100 mg/dL [facility] BUN 20 6 - 20 mg/dL [facility] Creatinine 1.96(H) 0.70 - 1.25 mg/dL [facility] Calcium 8.5(L) 8.6 - 10.0 mg/dL [facility] Sodium 137 135 - 148 mmol/L [facility] Potassium 5.1 3.5 - 5.3 mmol/L [facility] Chloride 103 92 - 108 mmol/L [facility] eGFR (2020 CKD-EPI) 42(L) >=60 ml/min/1.7 3m2 [facility] Comment: The estimated glomerular filtration rate (eGFR) was calculated using the CKD-EPI 2020 creatinine equation, which does not include race as a factor. This equation is validated in individuals 18 years of age and older, and eGFR is normalized to a body surface area of 1.73m^2. AnGap 10 8 - 16 mmol/L [facility] Blood 11/23/2023 8:31 AM CDT 11/23/2023 9:12 AM CDT Zac Churchill MD LABORATORY [facility] [address] [address] * (ABNORMAL) CBC WITH PLATELET (11/23/2023 8:31 AM CDT) WBC 13.36(H) 4.00 - 10.00 k/cmm [facility] RBC 3.57(L) 4.60 - 6.00 m/cmm [facility] Hgb 10.0(L) 13.1 - 17.5 g/dL [facility] Hematocrit 31.5(L) 40.0 - 51.0 % [facility] MCV 88.2 80.0 - 100.0 fL [facility] MCH 28.0 25.0 - 32.0 pg [facility] MCHC 31.7 31.0 - 36.0 g/dL [facility] RDW 14.4 11.5 - 14.5 % [facility] Plt 492(H) 150 - 400 k/cmm [facility] MPV 9.1 6.5 - 12.5 fL [facility] Blood 11/23/2023 8:31 AM CDT 11/23/2023 9:11 AM CDT aZc Churchill MD LABORATORY [facility] [address] [place], [place] [id number] * (ABNORMAL) POC GLUCOSE (11/23/2023 6:43 AM CDT) POC Glucose 121(H) 70 - 100 mg/dL [facility] - POINT OF CARE Blood 11/23/2023 6:43 AM CDT Jessica Grullon MD LABORATORY Performing Organization Address [facility] [[email or web address]] Co de Phone Number [facility] PO[facility] [address] [place], [place] [phone], [place] * POC GLUCOSE (11/22/2023 8:28 PM CDT) POC Glucose 95 70 - 100 mg/dL [facility] - POINT OF CARE Blood 11/22/2023 8:28 PM CDT Jessica Grullon MD LABORATORY Performing Organization Address City/[facility] [[email or web address]] Co de Phone Number [facility] POINT OF [place] [phone], [place] * (ABNORMAL) POC GLUCOSE (11/22/2023 4:10 PM CDT) POC Glucose 176(H) 70 - 100 mg/dL [facility] - POINT OF CARE Blood 11/22/2023 4:10 PM CDT Jessica Grullon MD LABORATORY Performing Organization Address City/[facility]/ZIP Co de Phone Number [facility] POINT OF CARE [address] [place], [place] [address], [place] * (ABNORMAL) POC GLUCOSE (11/22/2023 11:21 AM CDT) POC Glucose 201(H) 70 - 100 mg/dL [facility] - POINT OF CARE Blood 11/22/2023 11:2 1 AM CDT Jessica Grullon MD LABORATORY [facility] POINT OF CARE [address] [place] [address], * (ABNORMAL) CYSTATIN C (11/22/2023 9:23 AM CDT) Pathologist [facility] Cystatin C 1.43(H) 0.61 - 0.95 mg/L [facility] eGFR by Cystatin C 51(L) >=60 ml/min/1.7 3m2 [facility] Comment: Estimated GFR calculated using the CKD-EPI Cystatin C (2012) equation. Stage ? Description ?eGFR Range ??1.......Normal or increased eGFR.......90 or Greater ??2.......Mildly decreased eGFR..........60-89 ??3.......Moderately decreased eGFR......30-59 ??4.......Severely decreased eGFR........15-29 ??5.......Kidney Failure.................Less than 15 Blood 11/22/2023 9:23 AM CDT 11/22/2023 2:05 PM CDT Zac Churchill MD LABORATORY [facility] [address] [place] [address] * (ABNORMAL) PANEL BASIC METABOLIC (BMP) (11/22/2023 9:23 AM CDT) Sodium 136 135 - 148 mmol/L [facility] Potassium 5.1 3.5 - 5.3 mmol/L [facility] Chloride 102 92 - 108 mmol/L [facility] CO2 24 22 - 30 mmol/L [facility] AnGap 10 8 - 16 mmol/L [facility] Glucose 254(H) 70 - 100 mg/dL [facility] BUN 20 6 - 20 mg/dL [facility] Creatinine 2.00(H) 0.70 - 1.25 mg/dL [facility] Calcium 8.6 8.6 - 10.0 mg/dL [facility] eGFR (2020 CKD-EPI) 41(L) >=60 ml/min/1.7 3m2 [facility] Comment: The estimated glomerular filtration rate (eGFR) was calculated using the CKD-EPI 2020 creatinine equation, which does not include race as a factor. This equation is validated in individuals 18 years of age and older, and eGFR is normalized to a body surface area of 1.73m^2. Blood 11/22/2023 9:23 AM CDT 11/22/2023 10:28 AM CDT Zac Churchill MD LABORATORY [facility] [address] [address] * (ABNORMAL) CBC WITH PLATELET (11/22/2023 9:23 AM CDT) WBC 12.35(H) 4.00 - 10.00 k/cmm [facility] RBC 3.47(L) 4.60 - 6.00 m/cmm [facility] Hgb 9.8(L) 13.1 - 17.5 g/dL [facility] Hematocrit 30.8(L) 40.0 - 51.0 % [facility] MCV 88.8 80.0 - 100.0 fL [facility] MCH 28.2 25.0 - 32.0 pg [facility] MCHC 31.8 31.0 - 36.0 g/dL [facility] RDW 14.5 11.5 - 14.5 % [facility] Plt 530(H) 150 - 400 k/cmm [facility] MPV 9.3 6.5 - 12.5 fL [facility] Blood 11/22/2023 9:23 AM CDT 11/22/2023 10:28 AM CDT Zac Churchill MD LABORATORY [facility] [address] [place] [phone] * (ABNORMAL) POC GLUCOSE (11/22/2023 6:55 AM CDT) POC Glucose 136(H) 70 - 100 mg/dL [facility] Blood 11/22/2023 6:55 AM CDT Jessica Grullon MD LABORATORY Performing Organization Address City/[facility]/ZIP Co de Phone Number [facility] [address] [place] [phone], [place] * (ABNORMAL) POC GLUCOSE (11/21/2023 8:38 PM CDT) POC Glucose 139(H) 70 - 100 mg/dL [facility] Blood 11/21/2023 8:38 PM CDT Jessica Grullon MD LABORATORY Performing Organization Address City/[facility] [[email or web address]] Co de Phone Number [address] [address], [place] * (ABNORMAL) POC GLUCOSE (11/21/2023 4:13 PM CDT) POC Glucose 141(H) 70 - 100 mg/dL [facility] Blood 11/21/2023 4:13 PM CDT Jessica Grullon MD LABORATORY [facility] [address] [place] [address], [place] * (ABNORMAL) POC GLUCOSE (11/21/2023 11:12 AM CDT) Pathologist [facility] POC Glucose 177(H) 70 - 100 mg/dL [facility] Blood 11/21/2023 11:1 2 AM CDT Jessica Grullon MD LABORATORY Performing Organization Address [facility] [[email or web address]] Co de Phone Number [facility] [address] [phone], * (ABNORMAL) POC GLUCOSE (11/21/2023 6:08 AM CDT) [facility] POC Glucose 131(H) 70 - 100 mg/dL [facility] Blood 11/21/2023 6:08 AM CDT Jessica Grullon MD LABORATORY Performing Organization Address [facility] de Phone Number [facility] [address] [place] [address], [place] * (ABNORMAL) PANEL BASIC METABOLIC (BMP) (11/21/2023 4:52 AM CDT) [facility] CO2 27 22 - 30 mmol/L [facility] Glucose 128(H) 70 - 100 mg/dL [facility] BUN 21(H) 6 - 20 mg/dL [facility] Creatinine 2.07(H) 0.70 - 1.25 mg/dL [facility] Calcium 8.4(L) 8.6 - 10.0 mg/dL [facility] Sodium 138 135 - 148 mmol/L [facility] Potassium 4.8 3.5 - 5.3 mmol/L [facility] Chloride 103 92 - 108 mmol/L [facility] eGFR (2020 CKD-EPI) 40(L) >=60 ml/min/1.7 3m2 [facility] Comment: The estimated glomerular filtration rate (eGFR) was calculated using the CKD-EPI 2020 creatinine equation, which does not include race as a factor. This equation is validated in individuals 18 years of age and older, and eGFR is normalized to a body surface area of 1.73m^2. AnGap 8 8 - 16 mmol/L [facility] Blood 11/21/2023 4:52 AM CDT 11/21/2023 5:27 AM CDT Zac Churchill MD LABORATORY Performing Organization Address City/[facility] [[email or web address] Co de Phone Number [facility] [address] [address] * (ABNORMAL) CBC WITH PLATELET (11/21/2023 4:52 AM CDT) WBC 11.48(H) 4.00 - 10.00 k/cmm [facility] RBC 3.21(L) 4.60 - 6.00 m/cmm [facility] Hgb 9.0(L) 13.1 - 17.5 g/dL [facility] Hematocrit 28.7(L) 40.0 - 51.0 % [facility] MCV 89.4 80.0 - 100.0 fL [facility] MCH 28.0 25.0 - 32.0 pg [facility] MCHC 31.4 31.0 - 36.0 g/dL [facility] RDW 14.6(H) 11.5 - 14.5 % [facility] Plt 510(H) 150 - 400 k/cmm [facility] MPV 9.1 6.5 - 12.5 fL [facility] Blood 11/21/2023 4:52 AM CDT 11/21/2023 5:27 AM CDT Zac Churchill MD LABORATORY Performing Organization Address [facility] [[email or web address] Co de Phone Number [facility] [address] [address] * (ABNORMAL) POC GLUCOSE (11/20/2023 9:13 PM CDT) POC Glucose 153(H) 70 - 100 mg/dL [facility] Blood 11/20/2023 9:13 PM CDT Jessica Grullon MD LABORATORY Performing Organization Address City/[facility]/ZIP Co de Phone Number [facility] [address] [place] [address], * (ABNORMAL) POC GLUCOSE (11/20/2023 3:52 PM CDT) Pathologist [facility] POC Glucose 129(H) 70 - 100 mg/dL [facility] Blood 11/20/2023 3:52 PM CDT Jessica Grullon MD LABORATORY Performing Organization Address [facility] [[email or web address] Co de Phone Number [facility] POINT [facility] [address] [place] [address], * (ABNORMAL) POC GLUCOSE (11/20/2023 11:16 AM CDT) [facility] POC Glucose 165(H) 70 - 100 mg/dL [facility] POINT [facility] Blood 11/20/2023 11:1 6 AM CDT Jessica Grullon MD LABORATORY Performing Organization Address [facility] de Phone Number [facility] [address] [place] [address], [place] * (ABNORMAL) PANEL BASIC METABOLIC (BMP) (11/20/2023 8:18 AM CDT) [facility] Sodium 140 135 - 148 mmol/L [facility] Potassium 4.9 3.5 - 5.3 mmol/L [facility] Chloride 105 92 - 108 mmol/L [facility] CO2 26 22 - 30 mmol/L [facility] AnGap 9 8 - 16 mmol/L [facility] Glucose 147(H) 70 - 100 mg/dL [facility] BUN 21(H) 6 - 20 mg/dL [facility] Creatinine 2.02(H) 0.70 - 1.25 mg/dL [facility] Calcium 8.4(L) 8.6 - 10.0 mg/dL [facility] eGFR (2020 CKD-EPI) 41(L) >=60 ml/min/1.7 3m2 [facility] Comment: The estimated glomerular filtration rate (eGFR) was calculated using the CKD-EPI 2020 creatinine equation, which does not include race as a factor. This equation is validated in individuals 18 years of age and older, and eGFR is normalized to a body surface area of 1.73m^2. Blood 11/20/2023 8:18 AM CDT 11/20/2023 8:40 AM CDT 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 APRN, CNP LABORATORY [facility] [address] [place] [address] * (ABNORMAL) CBC WITH PLTS/AUTO DIFF (11/20/2023 8:18 AM CDT) WBC 10.90(H) 4.00 - 10.00 k/cmm [facility] RBC 3.17(L) 4.60 - 6.00 m/cmm [facility] Hgb 9.0(L) 13.1 - 17.5 g/dL [facility] Hematocrit 28.3(L) 40.0 - 51.0 % [facility] MCV 89.3 80.0 - 100.0 fL [facility] MCH 28.4 25.0 - 32.0 pg [facility] MCHC 31.8 31.0 - 36.0 g/dL [facility] RDW 14.3 11.5 - 14.5 % [facility] Plt 492(H) 150 - 400 k/cmm [facility] MPV 9.2 6.5 - 12.5 fL [facility] Automated Abs Neutrophil 6.51(H) 1.70 - 6.50 k/cmm [facility] Comment:Preliminary ANC, Fin al Result to Follow Abs Immature Granulocyte 0.57(H) 0.00 - 0.09 k/cmm [facility] Comment:The Immature Granulo cyte Absolute count contains metamyelocytes and myelocytes. Abs Neutrophil 6.51(H) 1.70 - 6.50 k/cmm [facility] Abs Lymphocyte 2.07 0.80 - 4.00 k/cmm [facility] Abs Monocyte 1.27(H) 0.20 - 1.00 k/cmm [facility] Abs Eosinophil 0.45 0.00 - 0.60 k/cmm [facility] Abs Basophil 0.03 0.00 - 0.20 k/cmm [facility] Blood 11/20/2023 8:18 AM CDT 11/20/2023 8:40 AM CDT 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 APRN, CNP LABORATORY [facility] [address] [place] [address] * (ABNORMAL) POC GLUCOSE (11/20/2023 8:08 AM CDT) POC Glucose 133(H) 70 - 100 mg/dL [facility] Blood 11/20/2023 8:08 AM CDT Jessica Grullon MD LABORATORY Performing Organization Address City/[facility]/ZIP Co de Phone Number [facility] [address] [place] [phone], [place] * (ABNORMAL) POC GLUCOSE (11/20/2023 6:30 AM CDT) POC Glucose 153(H) 70 - 100 mg/dL [facility] Blood 11/20/2023 6:30 AM CDT Jessica Grullon MD LABORATORY Performing Organization Address City/[facility] [[email or web address] Co de Phone Number [facility] [address] [place] [phone], [place] * (ABNORMAL) POC GLUCOSE (11/19/2023 9:03 PM CDT) POC Glucose 148(H) 70 - 100 mg/dL [facility] Blood 11/19/2023 9:03 PM CDT Jessica Grullon MD LABORATORY [facility] [address] [place] [phone], [place] * (ABNORMAL) POC GLUCOSE (11/19/2023 3:55 PM CDT) POC Glucose 126(H) 70 - 100 mg/dL [facility] Blood 11/19/2023 3:55 PM CDT Jessica Grullon MD LABORATORY [facility] [address] [place] [address], [place] * (ABNORMAL) POC GLUCOSE (11/19/2023 12:03 PM CDT) POC Glucose 147(H) 70 - 100 mg/dL [facility] Blood 11/19/2023 12:0 3 PM CDT Jessica Grullon MD LABORATORY Performing Organization Address City/[facility] [[email or web address] Co de Phone Number [facility] [address] [place] [address], [place] * (ABNORMAL) POC GLUCOSE (11/19/2023 11:07 AM CDT) POC Glucose 159(H) 70 - 100 mg/dL [facility] Blood 11/19/2023 11:0 7 AM CDT Jessica Grullon MD LABORATORY Performing Organization Address City/[facility]/ZIP Co de Phone Number [facility] [address] [place] [address], [place] * (ABNORMAL) POC GLUCOSE (11/19/2023 8:51 AM CDT) POC Glucose 185(H) 70 - 100 mg/dL [facility] Blood 11/19/2023 8:51 AM CDT Jessica Grullon MD LABORATORY Performing Organization Address City/[facility]/ZIP Co de Phone Number [facility] [address] [place] [address], * (ABNORMAL) PANEL BASIC METABOLIC (BMP) (11/19/2023 7:58 AM CDT) CO2 24 22 - 30 mmol/L [facility] Glucose 221(H) 70 - 100 mg/dL [facility] BUN 25(H) 6 - 20 mg/dL [facility] Creatinine 2.19(H) 0.70 - 1.25 mg/dL [facility] Calcium 7.8(L) 8.6 - 10.0 mg/dL [facility] Sodium 138 135 - 148 mmol/L [facility] Potassium 4.7 3.5 - 5.3 mmol/L [facility] Chloride 104 92 - 108 mmol/L [facility] eGFR (2020 CKD-EPI) 37(L) >=60 ml/min/1.7 3m2 [facility] Comment: The estimated glomerular filtration rate (eGFR) was calculated using the CKD-EPI 2020 creatinine equation, which does not include race as a factor. This equation is validated in individuals 18 years of age and older, and eGFR is normalized to a body surface area of 1.73m^2. AnGap 10 8 - 16 mmol/L [facility] Blood 11/19/2023 7:58 AM CDT 11/19/2023 8:34 AM CDT 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 APRN, CNP LABORATORY [facility] [address] [place] [address] * (ABNORMAL) CBC WITH PLTS/AUTO DIFF (11/19/2023 7:58 AM CDT) WBC 10.66(H) 4.00 - 10.00 k/cmm [facility] RBC 3.14(L) 4.60 - 6.00 m/cmm [facility] Hgb 9.0(L) 13.1 - 17.5 g/dL [facility] Hematocrit 27.7(L) 40.0 - 51.0 % [facility] MCV 88.2 80.0 - 100.0 fL [facility] MCH 28.7 25.0 - 32.0 pg [facility] MCHC 32.5 31.0 - 36.0 g/dL [facility] RDW 14.3 11.5 - 14.5 % [facility] Plt 482(H) 150 - 400 k/cmm [facility] MPV 9.2 6.5 - 12.5 fL [facility] Automated Abs Neutrophil 6.41 1.70 - 6.50 k/cmm [facility] Comment:Preliminary ANC, Fin al Result to Follow Polychromasia Slight [facility] Abs Neutrophil 8.10(H) 1.70 - 6.50 k/cmm [facility] Abs Lymphocyte 1.07 0.80 - 4.00 k/cmm [facility] Abs Monocyte 0.85 0.20 - 1.00 k/cmm [facility] Abs Eosinophil 0.32 0.00 - 0.60 k/cmm [facility] Abs Basophil 0.11 0.00 - 0.20 k/cmm [facility] Abs Myelocyte 0.21(H) 0.00 - 0.00 k/cmm [facility] Blood 11/19/2023 7:58 AM CDT 11/19/2023 8:34 AM CDT 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 APRN, CNP LABORATORY [facility] [address] [address] * (ABNORMAL) POC GLUCOSE (11/19/2023 6:37 AM CDT) POC Glucose 212(H) 70 - 100 mg/dL [facility] Blood 11/19/2023 6:37 AM CDT Jessica Grullon MD LABORATORY [facility] POINT OF CARE [address] [place] [phone], * POC GLUCOSE (11/18/2023 8:54 PM CDT) POC Glucose 99 70 - 100 mg/dL [facility] Blood 11/18/2023 8:54 PM CDT Jessica Grullon MD LABORATORY Performing Organization Address City/[facility]/ZIP Co de Phone Number [facility] [address] [place] [phone], [place] * (ABNORMAL) POC GLUCOSE (11/18/2023 8:20 PM CDT) POC Glucose 69(L) 70 - 100 mg/dL [facility] Blood 11/18/2023 8:20 PM CDT Jessica Grullon MD LABORATORY Performing Organization Address [facility] [[email or web address] Co de Phone Number [facility] [address] [place] [address], [place] * (ABNORMAL) POC GLUCOSE (11/18/2023 4:37 PM CDT) POC Glucose 154(H) 70 - 100 mg/dL [facility] Blood 11/18/2023 4:37 PM CDT Jessica Grullon MD LABORATORY Performing Organization Address [facility] [[email or web address] Co de Phone Number [facility] [address] [place] [address], [place] * (ABNORMAL) POC GLUCOSE (11/18/2023 11:03 AM CDT) POC Glucose 158(H) 70 - 100 mg/dL [facility] Blood 11/18/2023 11:0 3 AM CDT Jessica Grullon MD LABORATORY Performing Organization Address City/[facility] [[email or web address] Co de Phone Number [facility] [address] [place] [phone], [place] * (ABNORMAL) PANEL BASIC METABOLIC (BMP) (11/18/2023 9:02 AM CDT) CO2 24 22 - 30 mmol/L [facility] Glucose 180(H) 70 - 100 mg/dL [facility] BUN 27(H) 6 - 20 mg/dL [facility] Creatinine 2.17(H) 0.70 - 1.25 mg/dL [facility] Calcium 8.2(L) 8.6 - 10.0 mg/dL [facility] Sodium 137 135 - 148 mmol/L [facility] Potassium 4.5 3.5 - 5.3 mmol/L [facility] Chloride 104 92 - 108 mmol/L [facility] eGFR (2020 CKD-EPI) 37(L) >=60 ml/min/1.7 3m2 [facility] Comment: The estimated glomerular filtration rate (eGFR) was calculated using the CKD-EPI 2020 creatinine equation, which does not include race as a factor. This equation is validated in individuals 18 years of age and older, and eGFR is normalized to a body surface area of 1.73m^2. AnGap 9 8 - 16 mmol/L [facility] Blood 11/18/2023 9:02 AM CDT 11/18/2023 9:21 AM CDT 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 APRN, CNP LABORATORY [facility] [address] [place] [phone] * (ABNORMAL) CBC WITH PLTS/AUTO DIFF (11/18/2023 9:02 AM CDT) WBC 10.61(H) 4.00 - 10.00 k/cmm [facility] RBC 3.36(L) 4.60 - 6.00 m/cmm [facility] Hgb 9.4(L) 13.1 - 17.5 g/dL [facility] Hematocrit 29.5(L) 40.0 - 51.0 % [facility] MCV 87.8 80.0 - 100.0 fL [facility] MCH 28.0 25.0 - 32.0 pg [facility] MCHC 31.9 31.0 - 36.0 g/dL [facility] RDW 14.2 11.5 - 14.5 % [facility] Plt 495(H) 150 - 400 k/cmm [facility] MPV 9.2 6.5 - 12.5 fL [facility] Automated Abs Neutrophil 6.34 1.70 - 6.50 k/cmm [facility] Comment:Preliminary ANC, Fin al Result to Follow NUC RBC 1.0(H) 0.0 - 0.0 /100WBC [facility] Polychromasia Slight [facility] Abs Neutrophil 7.32(H) 1.70 - 6.50 k/cmm [facility] Abs Lymphocyte 2.23 0.80 - 4.00 k/cmm [facility] Abs Monocyte 0.85 0.20 - 1.00 k/cmm [facility] Abs Eosinophil 0.21 0.00 - 0.60 k/cmm [facility] Blood 11/18/2023 9:02 AM CDT 11/18/2023 9:21 AM CDT 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 APRN, CNP LABORATORY Performing Organization Address [facility]/ZIP Co de Phone Number [facility] [place] [address] * (ABNORMAL) POC GLUCOSE (11/18/2023 6:21 AM CDT) POC Glucose 194(H) 70 - 100 mg/dL [facility] Blood 11/18/2023 6:21 AM CDT Jessica Grullon MD LABORATORY Performing Organization Address City/[facility] [[email or web address] Co de Phone Number [facility]ARE [address] [place] [address] * (ABNORMAL) POC GLUCOSE (11/17/2023 8:19 PM CDT) POC Glucose 143(H) 70 - 100 mg/dL [facility] Blood 11/17/2023 8:19 PM CDT Jessica Grullon MD LABORATORY Performing Organization Address City/[facility]/ZIP Co de Phone Number [facility] [address] [place] [address] * (ABNORMAL) POC GLUCOSE (11/17/2023 4:40 PM CDT) Pathologist [facility] POC Glucose 235(H) 70 - 100 mg/dL [facility] Blood 11/17/2023 4:40 PM CDT Jessica Grullon MD LABORATORY [facility]ARE [address] [place] [address], [place] * (ABNORMAL) CBC WITH PLTS/AUTO DIFF (11/17/2023 2:35 PM CDT) [facility] WBC 11.70(H) 4.00 - 10.00 k/cmm [facility] RBC 3.37(L) 4.60 - 6.00 m/cmm [facility] Hgb 9.6(L) 13.1 - 17.5 g/dL [facility] Hematocrit 29.6(L) 40.0 - 51.0 % [facility] MCV 87.8 80.0 - 100.0 fL [facility] MCH 28.5 25.0 - 32.0 pg [facility] [place] MCHC 32.4 31.0 - 36.0 g/dL [facility] [place] [facility] RDW 14.2 11.5 - 14.5 % [facility] [place] [facility] Plt 466(H) 150 - 400 k/cmm [facility] [place] [facility] MPV 9.3 6.5 - 12.5 fL [facility] [place] [facility] Automated Abs Neutrophil 7.44(H) 1.70 - 6.50 k/cmm [facility] [place] [facility] Comment:Preliminary ANC, Fin al Result to Follow Abs Immature Granulocyte 0.52(H) 0.00 - 0.09 k/cmm [facility] [place] [facility] Comment:The Immature Granulo cyte Absolute count contains metamyelocytes and myelocytes. Abs Neutrophil 7.44(H) 1.70 - 6.50 k/cmm [facility] [place] [facility] Abs Lymphocyte 1.96 0.80 - 4.00 k/cmm [facility] [place] Abs Monocyte 1.45(H) 0.20 - 1.00 k/cmm [facility] [place] [facility] Abs Eosinophil 0.27 0.00 - 0.60 k/cmm [facility] [place] Abs Basophil 0.06 0.00 - 0.20 k/cmm [facility] [place] Polychromasia Slight [facility] Blood 11/17/2023 2:35 PM CDT 11/17/2023 2:57 PM CDT Scar Leyva MD LABORATORY Performing Organization Address City/[facility]/ZIP Co de Phone Number [facility] [address] [id number] * (ABNORMAL) PANEL BASIC METABOLIC (BMP) (11/17/2023 2:35 PM CDT) CO2 21(L) 22 - 30 mmol/L [facility] [place] [facility] Glucose 252(H) 70 - 100 mg/dL [facility] [place] [facility] BUN 30(H) 6 - 20 mg/dL [facility] [place] [facility] Creatinine 2.27(H) 0.70 - 1.25 mg/dL [facility] [place] [facility] Calcium 8.2(L) 8.6 - 10.0 mg/dL [facility] [place] [facility] Sodium 137 135 - 148 mmol/L [facility] [place] [facility] Potassium 4.3 3.5 - 5.3 mmol/L [facility] [place] [facility] Chloride 104 92 - 108 mmol/L [facility] [place] [facility] eGFR (2020 CKD-EPI) 35(L) >=60 ml/min/1.7 3m2 [facility] [place] [facility] Comment: The estimated glomerular filtration rate (eGFR) was calculated using the CKD-EPI 2020 creatinine equation, which does not include race as a factor. This equation is validated in individuals 18 years of age and older, and eGFR is normalized to a body surface area of 1.73m^2. AnGap 12 8 - 16 mmol/L [facility] Blood 11/17/2023 2:35 PM CDT 11/17/2023 2:57 PM CDT Scar Leyva MD LABORATORY Performing Organization Address City/[facility]/ZIP Co de Phone Number [facility] [address] [address] * ANTI XA ASSAY LMW HEPARIN (11/17/2023 11:47 AM CDT) Anti XA LMW <0.04 IU/mL [facility] Comment: Anti Xa Assay LMW Heparin Therapeutic Ranges: 0.4-1.1 IU/mL for twice daily 1.0-2.0 IU/mL for once daily Blood 11/17/2023 11:4 7 AM CDT 11/17/2023 12:01 PM CDT Zac Churchill MD LABORATORY Performing Organization Address [facility] [[email or web address]] Co de Phone Number [facility] [place] [address] * (ABNORMAL) POC GLUCOSE (11/17/2023 11:25 AM CDT) POC Glucose 190(H) 70 - 100 mg/dL [facility] POINT OF CARE Blood 11/17/2023 11:2 5 AM CDT Jessica Grullon MD LABORATORY Performing Organization Address [facility] de Phone Number [facility] POINT [facility] CARE [address] [place] [address], * XR FOOT LEFT 3 V AP/OBL/LAT* [...] POC Glucose 176(H) 70 - 100 mg/dL [facility] POINT OF CARE Blood 11/17/2023 10:0 1 AM CDT Jessica Grullon MD LABORATORY [facility] POINT OF CARE [address] [place] [address], * (ABNORMAL) TISSUE CULTURE:INCLUDES GRAM STAIN (11/17/2023 9:35 AM CDT) Final Report Positive Culture Previous positive called. Rare METHICILLIN RESISTANT Staphylococcus aureus (MRSA) isolated. 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 One colony Staphylococcus lugdunensis isolated. (POS) [facility] Organism METHICILLIN RESISTANT STAPHYLOCOCCUS AUREUS (MRSA)(POS) [facility] Organism STAPHYLOCOCCUS LUGDUNENSIS(POS) [facility] Gram Stain Report Few WBC's seen. No organisms seen. Gram stain electronically reported to and acknowledged by: Che Palomo MD for Podiatric Surgery on 11/17/2023 11:56:22 by Silver Luna MLS [facility] Tissue TOE STRUCTURE / [...] Vancomycin VITEK JORDY <=0.5: Sensitive Che Palomo [facility] MICROBIOLOGY Performing Organization Address [facility] de Phone Number [facility] [address] [address] * FUNGUS CULTURE:INCLUDES SUHAS (11/17/2023 9:35 AM CDT) Final Report No fungus isolated. [facility] SUHAS Prep No fungal elements seen. [facility] Tissue TOE STRUCTURE / Unknown 11/17/2023 9:35 AM CDT Che Mullent DP LAB MICROBIOLOGY Performing Organization Address [facility] de Phone Number [facility] [address] [address] * ANAEROBE CULTURE (11/17/2023 9:35 AM CDT) Final Report No anaerobes isolated. [facility] Tissue TOE STRUCTURE / Unknown 11/17/2023 9:35 AM CDT Che Mullent DPM LAB MICROBIOLOGY Performing Organization Address [facility] [[email or web address]] Co de Phone Number [facility] [address] [address] * AFB CULTURE:INCLUDES AFB SMEAR (11/17/2023 9:35 AM CDT) Final Report No acid fast bacilli isolated. [facility] Acid Fast Stain No acid fast bacilli seen. [facility] Tissue TOE STRUCTURE / Unknown 11/17/2023 9:35 AM CDT Che Palomo DP LAB MICROBIOLOGY Performing Organization Address [facility] de Phone Number [facility] [address] [address] * M TUBERCULOSIS AMPLIFICATION (11/17/2023 9:32 AM CDT) Final Report M. tuberculosis complex DNA not detected. [facility] Tissue TOE STRUCTURE / Unknown 11/17/2023 9:32 AM CDT 11/18/2023 9:56 AM CDT Comment:1: Left hallux soft tissue dirty Narrative [facility] - 11/18/2023 2:41 PM CDT This assay uses PCR nucleic acid amplification to detect Mycobacterium tuberculosis complex DNA. ??This test was developed and its performance characteristics determined by [facility]. ??It has not been cleared or approved by the U.S. Food and Drug Administration. ??FDA does not require this test to go through premarket FDA review. ??This test is used for clinical purposes. ??It should not be regarded as investigational or for research. ??[facility] is certified under the Clinical Laboratory Improvement Amendments of 1988 (CLIA) as qualified to perform high complexity clinical laboratory testing. Che Palomo DP LAB MICROBIOLOGY Performing Organization Address [facility] [[email or web address]] Co de Phone Number [facility] [address] [address] * (ABNORMAL) TISSUE CULTURE:INCLUDES GRAM STAIN (11/17/2023 9:32 AM CDT) Final Report Positive Culture Rare METHICILLIN RESISTANT Staphylococcus aureus (MRSA) isolated. 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 Rare Group B beta hemolytic Streptococcus isolated. Pseudomonas aeruginosa isolated in broth only. Results electronically reported to and acknowledged by: Paula Vazquez MD, in Surgery Green, at ?? 11/23/2023 07:49:11 by Pam Alvarado MLS. (POS) [facility] Organism METHICILLIN RESISTANT STAPHYLOCOCCUS AUREUS (MRSA)(POS) [facility] Organism GROUP B BETA HEMOLYTIC STREPTOCOCCUS(POS) [facility] Organism PSEUDOMONAS AERUGINOSA(POS) [facility] Gram Stain Report Positive Gram stain Gram stain electronically reported to and acknowledged by: Che Zheng MD for Podiatric Surgery on 11/17/2023 11:55:10 by Silver Luna MLS Rare WBC's seen. Rare gram positive cocci clusters. (POS) [facility] Tissue TOE STRUCTURE / [...] Tobramycin VITEK JORDY <=1: Sensitive Che Palomo M LAB MICROBIOLOGY [facility] [address] [place] [address] * FUNGUS CULTURE:INCLUDES SUHAS (11/17/2023 9:32 AM CDT) Final Report No fungus isolated. [facility] SUHAS Prep No fungal elements seen. [facility] Tissue TOE STRUCTURE / Unknown 11/17/2023 9:32 AM CDT Che L Beth DP LAB MICROBIOLOGY Performing Organization Address [facility] [[email or web address]] Co de Phone Number [facility] [address] [address] * (ABNORMAL) ANAEROBE CULTURE (11/17/2023 9:32 AM CDT) Final Report Positive Culture Rare Veillonella parvula group isolated. Rare Actinomyces europaeus isolated. (POS) [facility] Organism VEILLONELLA PARVULA GROUP(POS) [facility] Organism ACTINOMYCES EUROPAEUS(POS) [facility] Tissue TOE STRUCTURE / Unknown 11/17/2023 9:32 AM CDT Che L Beth DP LAB MICROBIOLOGY Performing Organization Address [facility] de Phone Number [facility] [address] [address] * AFB CULTURE:INCLUDES AFB SMEAR (11/17/2023 9:32 AM CDT) Final Report No acid fast bacilli isolated. [facility] Acid Fast Stain No acid fast bacilli seen. [facility] Tissue TOE STRUCTURE / Unknown 11/17/2023 9:32 AM CDT Che L Beth DPM LAB MICROBIOLOGY Performing Organization Address [facility] [[email or web address]] Co de Phone Number [facility] [address] [address] * SURGICAL PATHOLOGY (11/17/2023 9:31 AM CDT) SURG PATH FINAL ?Surgical Pathology Report Collection Date: ?11/17/2023 09:31 CDT ?Ordering Physician: ? CHE PALOMO Received Date: ?11/17/2023 09:49 CDT ?Accession Number: ? [id number] ? Surgical Pathology Final Report Specimen Type: [...] underlying soft tissue with moderate osseous softening. Supervisor Burling And Joining sections are submitted on decalcification as follows: [...] Rodriguez M.D. Attending Pathologist. DDB/DDB 11.17.2023 10:26 [facility] AP Specimen FOOT STRUCTURE / Unknown 11/17/2023 9:31 AM CDT Comment:OR: Routine gross an d microscopic examination Tissue: Left Hallux Site: left foot Additional clinical information: Che Palomo DPM LAB PATHOLOGY Performing Organization Address [facility] [[email or web address]] Co de Phone Number [facility] [address] [address] * (ABNORMAL) POC GLUCOSE (11/17/2023 9:14 AM CDT) POC Glucose 169(H) 70 - 100 mg/dL [facility]ARE Blood 11/17/2023 9:14 AM CDT Jessica Grullon MD LABORATORY Performing Organization Address [facility] [[email or web address]] Co de Phone Number [facility]ARE [address] [place] [address], [place] * ULT ARTERIAL LOWER EXTREMITY LEFT [...] documented by the resident/fellow. Reading Radiologist: Praful Woosdon Reading Resident: Douglas Baldwin Zac Churchill MD RAD ULT * (ABNORMAL) POC GLUCOSE (11/17/2023 6:07 AM CDT) POC Glucose 205(H) 70 - 100 mg/dL [facility] Blood 11/17/2023 6:07 AM CDT Jessica Grullon MD LABORATORY Performing Organization Address [facility] [[email or web address]] Co de Phone Number [facility] [address] [place] [address], * (ABNORMAL) POC GLUCOSE (11/16/2023 8:46 PM CDT) POC Glucose 141(H) 70 - 100 mg/dL [facility] POINT OF [facility] Blood 11/16/2023 8:46 PM CDT Jessica Grullon MD LABORATORY Performing Organization Address [facility] de Phone Number [facility] POINT [facility] [address] [place] [address], [place] * XR FOOT LEFT 3 V [...] POC Glucose 148(H) 70 - 100 mg/dL [facility] POINT [facility] CARE Blood 11/16/2023 4:14 PM CDT Jessica Grullon MD LABORATORY Performing Organization Address [facility] [[email or web address]] Co de Phone Number [facility]ARE [address] [place] [address], [place] * (ABNORMAL) POC GLUCOSE (11/16/2023 10:55 AM CDT) POC Glucose 203(H) 70 - 100 mg/dL [facility] Blood 11/16/2023 10:5 5 AM CDT Jessica Grullon MD LABORATORY Performing Organization Address [facility]/ZIP Co de Phone Number [facility]ARE [address] [place] [address], [place] * (ABNORMAL) CBC WITH PLATELET (11/16/2023 8:45 AM CDT) WBC 13.08(H) 4.00 - 10.00 k/cmm [facility] RBC 3.38(L) 4.60 - 6.00 m/cmm [facility] Hgb 9.6(L) 13.1 - 17.5 g/dL [facility] Hematocrit 28.9(L) 40.0 - 51.0 % [facility] MCV 85.5 80.0 - 100.0 fL [facility] MCH 28.4 25.0 - 32.0 pg [facility] MCHC 33.2 31.0 - 36.0 g/dL [facility] RDW 13.4 11.5 - 14.5 % [facility] Plt 475(H) 150 - 400 k/cmm [facility] MPV 9.5 6.5 - 12.5 fL [facility] Blood 11/16/2023 8:45 AM CDT 11/16/2023 8:58 AM CDT 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 APRN, CNP LABORATORY [facility] [address] [address] * (ABNORMAL) PANEL BASIC METABOLIC (BMP) (11/16/2023 8:45 AM CDT) CO2 21(L) 22 - 30 mmol/L [facility] Glucose 261(H) 70 - 100 mg/dL [facility] BUN 35(H) 6 - 20 mg/dL [facility] Creatinine 2.67(H) 0.70 - 1.25 mg/dL [facility] Calcium 8.3(L) 8.6 - 10.0 mg/dL [facility] Sodium 139 135 - 148 mmol/L [facility] Potassium 4.4 3.5 - 5.3 mmol/L [facility] Chloride 106 92 - 108 mmol/L [facility] eGFR (2020 CKD-EPI) 29(L) >=60 ml/min/1.7 3m2 [facility] Comment: The estimated glomerular filtration rate (eGFR) was calculated using the CKD-EPI 2021 creatinine equation, which does not include race as a factor. This equation is validated in individuals 18 years of age and older, and eGFR is normalized to a body surface area of 1.73m^2. AnGap 12 8 - 16 mmol/L [facility] Blood 11/16/2023 8:45 AM CDT 11/16/2023 8:57 AM CDT 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 APRN, CNP LABORATORY Performing Organization Address City/[facility] [[email or web address]] Co de Phone Number [facility] [place] [address] * (ABNORMAL) POC GLUCOSE (11/16/2023 7:37 AM CDT) POC Glucose 180(H) 70 - 100 mg/dL [facility] POINT OF [facility] Blood 11/16/2023 7:37 AM CDT Jessica Grullon MD LABORATORY Performing Organization Address [facility] [[email or web address]] Co de Phone Number [facility] POINT OF CARE [address] [place] [address], * (ABNORMAL) POC GLUCOSE (11/15/2023 9:23 PM CDT) POC Glucose 144(H) 70 - 100 mg/dL [facility] POINT OF [facility] Blood 11/15/2023 9:23 PM CDT Jessica Grullon MD LABORATORY Performing Organization Address City/[facility] [[email or web address]] Co de Phone Number [facility] POINT OF CARE [address] [place] [address], * (ABNORMAL) POC GLUCOSE (11/15/2023 4:18 PM CDT) POC Glucose 159(H) 70 - 100 mg/dL [facility] POINT OF [facility] Blood 11/15/2023 4:18 PM CDT Jessica Grullon MD LABORATORY Performing Organization Address [facility] [[email or web address]] Co de Phone Number [facility]INT OF CARE [address] [place] [address], * (ABNORMAL) POC GLUCOSE (11/15/2023 11:19 AM CDT) POC Glucose 221(H) 70 - 100 mg/dL [facility] Blood 11/15/2023 11:1 9 AM CDT Jessica Grullon MD LABORATORY Performing Organization Address [facility] [[email or web address]] Co de Phone Number [facility] POINT OF CARE [address] [place] [address], [place] * (ABNORMAL) PANEL BASIC METABOLIC (BMP) (11/15/2023 7:39 AM CDT) CO2 21(L) 22 - 30 mmol/L [facility] Glucose 176(H) 70 - 100 mg/dL [facility] BUN 38(H) 6 - 20 mg/dL [facility] Creatinine 2.86(H) 0.70 - 1.25 mg/dL [facility] Calcium 7.6(L) 8.6 - 10.0 mg/dL [facility] Sodium 136 135 - 148 mmol/L [facility] Potassium 4.2 3.5 - 5.3 mmol/L [facility] Chloride 102 92 - 108 mmol/L [facility] eGFR (2020 CKD-EPI) 27(L) >=60 ml/min/1.7 3m2 [facility] Comment: The estimated glomerular filtration rate (eGFR) was calculated using the CKD-EPI 2020 creatinine equation, which does not include race as a factor. This equation is validated in individuals 18 years of age and older, and eGFR is normalized to a body surface area of 1.73m^2. AnGap 13 8 - 16 mmol/L [facility] Blood 11/15/2023 7:39 AM CDT 11/15/2023 7:58 AM CDT Shani Shaw MD LABORATORY Performing Organization Address [facility] [[email or web address]] Co de Phone Number [facility] [address] [address] * (ABNORMAL) CREATININE, SERUM (11/15/2023 7:39 AM CDT) Creatinine 2.83(H) 0.70 - 1.25 mg/dL [facility] eGFR (2020 CKD-EPI) 27(L) >=60 ml/min/1.7 3m2 [facility] Comment: The estimated glomerular [...] Shani Shaw MD LABORATORY Performing Organization Address City/[facility]/ZIP Co de Phone Number [facility] [address] [address] * HEPATITIS C ANTIBODY WITH CONDITIONAL PCR (11/15/2023 7:39 AM CDT) Hep C Lilly Nonreactive Nonreactive [facility] Comment:Performance characte ristics have not been established with this test on patients less than 10 years of age. Blood 11/15/2023 7:39 AM CDT 11/15/2023 7:58 AM CDT Zac Churchill MD LABORATORY [facility] [address] [address] * HIV COMBO (11/15/2023 7:39 AM CDT) HIV Antigen-Antibody Nonreactive Nonreactive [facility] Comment:Performance characte ristics have not been established with this test on patients less than 2 years of age. Blood 11/15/2023 7:39 AM CDT 11/15/2023 7:58 AM CDT Zac Churchill MD LABORATORY [facility] [address] [place] [address] * (ABNORMAL) POC GLUCOSE (11/15/2023 6:16 AM CDT) POC Glucose 154(H) 70 - 100 mg/dL [facility]INT [facility] CARE Blood 11/15/2023 6:16 AM CDT Jessica Grullon MD LABORATORY [facility] POINT OF CARE [address] [place] [address], [place] * (ABNORMAL) POC GLUCOSE (11/14/2023 8:34 PM CDT) POC Glucose 159(H) 70 - 100 mg/dL [facility] POINT OF CARE Blood 11/14/2023 8:34 PM CDT Jessica Grullon MD LABORATORY Performing Organization Address City/[facility] [[email or web address]] Co de Phone Number [facility] POINT OF [facility] [address] [place] [address], [place] * (ABNORMAL) POC GLUCOSE (11/14/2023 4:36 PM CDT) POC Glucose 182(H) 70 - 100 mg/dL [facility] POINT OF CARE Blood 11/14/2023 4:36 PM CDT Jessica Grullon MD LABORATORY [facility] POINT OF CARE [address] [place] [address], [place] * (ABNORMAL) PROTEIN TO CREAT RATIO,URINE (11/14/2023 9:58 AM CDT) TPU 22(H) 0 - 11 mg/dL [facility] Creat Urine 89 30 - 125 mg/dL [facility] Protein to Creat Ratio, Ur 0.25(H) 0.00 - 0.06 mg/mg [facility] Urine 11/14/2023 9:58 AM CDT 11/14/2023 10:06 AM CDT Zac Churchill MD LABORATORY Performing Organization Address [facility] [[email or web address]] Co de Phone Number [facility] [address] [address] * (ABNORMAL) URINALYSIS,TOTAL (11/14/2023 9:58 AM CDT) Color YELLOW YELLOW [facility] Appearance CLEAR CLEAR [facility] Urine Glucose 500(A) NEGATIVE mg/dL [facility] Bili UA NEGATIVE NEGATIVE [facility] Ketones NEGATIVE NEGATIVE [facility] Specific [place] 1.012 1.003 - 1.030 [facility] Blood Ur NEGATIVE Neg-Trace [facility] PH Urine 5.5 5.0 - 7.0 [facility] Protein Ur TRACE Neg-Trace [facility] Urobilinogen NORMAL NORMAL EU/dL [facility] Nitrite Ur NEGATIVE NEGATIVE [facility] Leuk Est NEGATIVE Neg-Trace [facility] WBC Ur 0-5 0 - 5 perHPF [facility] RBC Ur 0-3 0 - 3 perHPF [facility] Mucus 1+ perLPF [facility] Urinalysis Performed at: [facility] Urine 11/14/2023 9:58 AM CDT 11/14/2023 10:06 AM CDT Zac Churchill MD LABORATORY Performing Organization Address [facility] de Phone Number [facility] [address] [address] * (ABNORMAL) POC GLUCOSE (11/14/2023 6:14 AM CDT) POC Glucose 171(H) 70 - 100 mg/dL [facility] PO[facility] CARE Blood 11/14/2023 6:14 AM CDT Jessica Grullon MD LABORATORY Performing Organization Address [facility]/ZIP Co de Phone Number [facility] CARE [address] [place] [address], * VANCOMYCIN LEVEL (11/14/2023 5:30 AM CDT) Vancomycin 19.9 mcg/mL [facility] Comment:Expected Range (Trou gh): 10-20 mcg/ml Blood 11/14/2023 5:30 AM CDT 11/14/2023 5:56 AM CDT Zac Churchill MD LABORATORY Performing Organization Address [facility] [[email or web address]] Co de Phone Number [facility] [address] [place] [address] * (ABNORMAL) CYSTATIN C (11/14/2023 5:30 AM CDT) Cystatin C 1.78(H) 0.61 - 0.95 mg/L [facility] eGFR by Cystatin C 38(L) >=60 ml/min/1.7 3m2 [facility] Comment: Estimated GFR calculated using the CKD-EPI Cystatin C (2012) equation. Stage ? Description ?eGFR Range ??1.......Normal or increased eGFR.......90 or Greater ??2.......Mildly decreased eGFR..........60-89 ??3.......Moderately decreased eGFR......30-59 ??4.......Severely decreased eGFR........15-29 ??5.......Kidney Failure.................Less than 15 Blood 11/14/2023 5:30 AM CDT 11/14/2023 5:56 AM CDT Zac Churchill MD LABORATORY Performing Organization Address [facility] [[email or web address]] Co de Phone Number [facility] [address] [place] [address] * PHOSPHORUS (11/14/2023 5:30 AM CDT) Phosphorus 4.3 2.5 - 4.5 mg/dL [facility] Blood 11/14/2023 5:30 AM CDT 11/14/2023 5:56 AM CDT Zac Churchill MD LABORATORY Performing Organization Address City/[facility] [facility] [[email or web address]] Co de Phone Number [facility] [address] [address] * (ABNORMAL) PANEL BASIC METABOLIC (BMP) (11/14/2023 5:30 AM CDT) Sodium 136 135 - 148 mmol/L [facility] Potassium 4.1 3.5 - 5.3 mmol/L [facility] Chloride 103 92 - 108 mmol/L [facility] CO2 24 22 - 30 mmol/L [facility] AnGap 9 8 - 16 mmol/L [facility] Glucose 194(H) 70 - 100 mg/dL [facility] BUN 40(H) 6 - 20 mg/dL [facility] Creatinine 3.21(H) 0.70 - 1.25 mg/dL [facility] Calcium 8.2(L) 8.6 - 10.0 mg/dL [facility] eGFR (2020 CKD-EPI) 23(L) >=60 ml/min/1.7 3m2 [facility] Comment: The estimated glomerular [...] Zac Churchill MD LABORATORY Performing Organization Address City/[facility]/ZIP Co de Phone Number [facility] [address] [address] * MAGNESIUM (11/14/2023 5:30 AM CDT) Magnesium 2.4 1.6 - 2.6 mg/dL [facility] Blood 11/14/2023 5:30 AM CDT 11/14/2023 5:56 AM CDT Zac Churchill MD LABORATORY [facility] [address] [address] * (ABNORMAL) CBC WITH PLATELET (11/14/2023 5:30 AM CDT) WBC 11.96(H) 4.00 - 10.00 k/cmm [facility] RBC 3.21(L) 4.60 - 6.00 m/cmm [facility] Hgb 9.1(L) 13.1 - 17.5 g/dL [facility] Hematocrit 28.5(L) 40.0 - 51.0 % [facility] MCV 88.8 80.0 - 100.0 fL [facility] MCH 28.3 25.0 - 32.0 pg [facility] MCHC 31.9 31.0 - 36.0 g/dL [facility] RDW 13.4 11.5 - 14.5 % [facility] Plt 372 150 - 400 k/cmm [facility] MPV 9.8 6.5 - 12.5 fL [facility] Blood 11/14/2023 5:30 AM CDT 11/14/2023 5:54 AM CDT Zac Churchill MD LABORATORY Performing Organization Address [facility]/ZIP Co de Phone Number [facility] [address] [address] * (ABNORMAL) POC GLUCOSE (11/13/2023 9:00 PM CDT) POC Glucose 206(H) 70 - 100 mg/dL [facility] Blood 11/13/2023 9:00 PM CDT Jessica Grullon MD LABORATORY [facility] POINT OF CARE [address] [place] [address], * (ABNORMAL) POC GLUCOSE (11/13/2023 4:44 PM CDT) POC Glucose 181(H) 70 - 100 mg/dL [facility] Blood 11/13/2023 4:44 PM CDT Jessica Grullon MD LABORATORY Performing Organization Address [facility] [[email or web address]] Co de Phone Number [facility] [address] [place] [address], [place] * (ABNORMAL) POC GLUCOSE (11/13/2023 10:56 AM CDT) POC Glucose 170(H) 70 - 100 mg/dL [facility] Blood 11/13/2023 10:5 6 AM CDT Jessica Grullon MD LABORATORY Performing Organization Address [facility] de Phone Number [facility]ARE [address] [place] [address], [place] * URINE CHLAMYDIA AND NEISSERIAE GONORRHOEAE AMPLIFICATION (11/13/2023 10:45 AM CDT) Pathologist [facility] Chlamydia Amplification - Urine Negative Negative [facility] Comment:Test performed by tr anscription mediated amplification and is FDA approved for genital and urine specimens. N. Gonorrhea Amplification - Urine Negative Negative [facility] Comment:Test performed by tr anscription mediated amplification and is FDA approved for genital and urine specimens. Urine 11/13/2023 10:4 5 AM CDT 11/13/2023 3:03 PM CDT Narrative [facility] - 11/15/2023 12:29 PM CDT For Urines, use first void. Zac Churchill MD LABORATORY Performing Organization Address City/[facility]/ZIP Co de Phone Number [facility] [address] [place] [phone] * HEPATITIS B SURFACE ANTIGEN (11/13/2023 10:20 AM CDT) Pathologist [facility] HBV Surface Ag Nonreactive Nonreactive [facility] Comment: Testing performed at: [address] [address] Blood 11/13/2023 10:2 0 AM CDT 11/13/2023 10:27 AM CDT Zac Churchill MD LABORATORY Performing Organization Address City/[facility] [[email or web address]] Co de Phone Number [address] [address] * HEPATITIS B SURFACE ANTIBODY (11/13/2023 10:20 AM CDT) [facility] HBsAb Quant <3.31 mIU/ml [facility] Comment:The Hepatitis B Surf gabriella Antibody quantitation is less than 8.00 mIU/mL. There is no evidence of an antibody response to a hepatitis B vaccination or recovery from a hepatitis B infection. This patient is presumed non-immune to hepatitis B. HBsAb Interpretation Nonreactive [facility] Blood 11/13/2023 10:2 0 AM CDT 11/13/2023 10:27 AM CDT Zac Churchill MD LABORATORY Performing Organization Address [facility] [[email or web address]] Co de Phone Number [address] [phone] * (ABNORMAL) POC GLUCOSE (11/13/2023 6:08 AM CDT) [facility] POC Glucose 154(H) 70 - 100 mg/dL [facility]ARE Blood 11/13/2023 6:08 AM CDT Jessica Grullon MD LABORATORY [facility]ARE [address] [place] [address], * (ABNORMAL) CYSTATIN C (11/13/2023 5:18 AM CDT) [facility] eGFR by Cystatin C 31(L) >=60 ml/min/1.7 3m2 [facility] Comment: Estimated GFR calculated using the CKD-EPI Cystatin C (2012) equation. Stage ? Description ?eGFR Range ??1.......Normal or increased eGFR.......90 or Greater ??2.......Mildly decreased eGFR..........60-89 ??3.......Moderately decreased eGFR......30-59 ??4.......Severely decreased eGFR........15-29 ??5.......Kidney Failure.................Less than 15 Cystatin C 2.11(H) 0.61 - 0.95 mg/L [facility] Blood 11/13/2023 5:18 AM CDT 11/13/2023 5:47 AM CDT Zac Churchill MD LABORATORY Performing Organization Address [facility] de Phone Number [facility] [place] [phone] * VANCOMYCIN LEVEL (11/13/2023 5:18 AM CDT) Vancomycin 35.4 mcg/mL [facility] Comment:Expected Range (Trou gh): 10-20 mcg/ml Blood 11/13/2023 5:18 AM CDT 11/13/2023 5:47 AM CDT Zca Churchill MD LABORATORY Performing Organization Address [facility] [[email or web address]] Co de Phone Number [address] [address] * (ABNORMAL) PHOSPHORUS (11/13/2023 5:18 AM CDT) Phosphorus 5.2(H) 2.5 - 4.5 mg/dL [facility] Blood 11/13/2023 5:18 AM CDT 11/13/2023 5:47 AM CDT Zac Churchill MD LABORATORY Performing Organization Address City/[facility]/ZIP Co de Phone Number [facility] [address] [address] * (ABNORMAL) PANEL BASIC METABOLIC (BMP) (11/13/2023 5:18 AM CDT) AnGap 12 8 - 16 mmol/L [facility] Sodium 137 135 - 148 mmol/L [facility] Chloride 103 92 - 108 mmol/L [facility] BUN 37(H) 6 - 20 mg/dL [facility] Calcium 7.8(L) 8.6 - 10.0 mg/dL [facility] CO2 22 22 - 30 mmol/L [facility] Glucose 168(H) 70 - 100 mg/dL [facility] Creatinine 3.04(H) 0.70 - 1.25 mg/dL [facility] Potassium 4.4 3.5 - 5.3 mmol/L [facility] eGFR (2020 CKD-EPI) 25(L) >=60 ml/min/1.7 3m2 [facility] Comment: The estimated glomerular [...] Zac Churchill MD LABORATORY Performing Organization Address City/[facility]/ZIP Co de Phone Number [facility] [address] [address] * MAGNESIUM (11/13/2023 5:18 AM CDT) Magnesium 2.3 1.6 - 2.6 mg/dL [facility] Blood 11/13/2023 5:18 AM CDT 11/13/2023 5:47 AM CDT Zac Churchill MD LABORATORY [facility] [address] [address] * (ABNORMAL) CBC WITH PLATELET (11/13/2023 5:18 AM CDT) [facility] WBC 13.27(H) 4.00 - 10.00 k/cmm [facility] RBC 3.28(L) 4.60 - 6.00 m/cmm [facility] Hgb 9.2(L) 13.1 - 17.5 g/dL [facility] Hematocrit 30.0(L) 40.0 - 51.0 % [facility] MCV 91.5 80.0 - 100.0 fL [facility] MCH 28.0 25.0 - 32.0 pg [facility] MCHC 30.7(L) 31.0 - 36.0 g/dL [facility] RDW 13.5 11.5 - 14.5 % [facility] Plt 317 150 - 400 k/cmm [facility] MPV 10.1 6.5 - 12.5 fL [facility] Blood 11/13/2023 5:18 AM CDT 11/13/2023 5:47 AM CDT Zac Churchill MD LABORATORY Performing Organization Address City/[facility]/ZIP Co de Phone Number [facility] [address] [address] * RPR SYPHILIS SCREEN (11/12/2023 11:10 PM CDT) [facility] RPR Screen Non-Reactive Non-Reacti ve [facility] RPR Titer Not Reflexed [facility] Blood 11/12/2023 11:1 0 PM CDT 11/12/2023 11:40 PM CDT Zac Churchill MD LABORATORY [facility] [address] [address] * (ABNORMAL) POC GLUCOSE (11/12/2023 8:47 PM CDT) POC Glucose 196(H) 70 - 100 mg/dL [facility] Blood 11/12/2023 8:47 PM CDT Jessica Grullon MD LABORATORY Performing Organization Address [facility] de Phone Number [facility]ARE [address] [place] [address], * (ABNORMAL) POC GLUCOSE (11/12/2023 4:41 PM CDT) [facility] POC Glucose 172(H) 70 - 100 mg/dL [facility] Blood 11/12/2023 4:41 PM CDT Jessica Grullon MD LABORATORY Performing Organization Address [facility] Phone Number [facility] [place] [address], * VANCOMYCIN LEVEL (11/12/2023 1:22 PM CDT) Pathologist [facility] Vancomycin 47.5 mcg/mL [facility] Comment:Expected Range (Trou gh): 10-20 mcg/ml Blood 11/12/2023 1:22 PM CDT 11/12/2023 1:34 PM CDT Narrative [facility] - 11/12/2023 2:28 PM CDT Peak or trough:->Trough aZc Churchill MD LABORATORY Performing Organization Address [facility] [[email or web address]] Co de Phone Number [facility] [address] [place] [address] * (ABNORMAL) CYSTATIN C (11/12/2023 11:36 AM CDT) Cystatin C 2.20(H) 0.61 - 0.95 mg/L [facility] eGFR by Cystatin C 29(L) >=60 ml/min/1.7 3m2 [facility] Comment: Estimated GFR calculated using the CKD-EPI Cystatin C (2012) equation. Stage ? Description ?eGFR Range ??1.......Normal or increased eGFR.......90 or Greater ??2.......Mildly decreased eGFR..........60-89 ??3.......Moderately decreased eGFR......30-59 ??4.......Severely decreased eGFR........15-29 ??5.......Kidney Failure.................Less than 15 Blood 11/12/2023 11:3 6 AM CDT 11/12/2023 2:53 PM CDT Zac Churchill MD LABORATORY Performing Organization Address [facility] de Phone Number [facility] [place] [phone] * (ABNORMAL) PHOSPHORUS (11/12/2023 11:36 AM CDT) Phosphorus 5.8(H) 2.5 - 4.5 mg/dL [facility] Blood 11/12/2023 11:3 6 AM CDT 11/12/2023 11:49 AM CDT Zac Churchill MD LABORATORY Performing Organization Address [facility] de Phone Number [facility] [address] [address] * (ABNORMAL) PANEL BASIC METABOLIC (BMP) (11/12/2023 11:36 AM CDT) Sodium 137 135 - 148 mmol/L [facility] Potassium 4.9 3.5 - 5.3 mmol/L [facility] Chloride 104 92 - 108 mmol/L [facility] CO2 23 22 - 30 mmol/L [facility] AnGap 10 8 - 16 mmol/L [facility] Glucose 160(H) 70 - 100 mg/dL [facility] BUN 29(H) 6 - 20 mg/dL [facility] Creatinine 2.24(H) 0.70 - 1.25 mg/dL [facility] Calcium 7.8(L) 8.6 - 10.0 mg/dL [facility] eGFR (2020 CKD-EPI) 36(L) >=60 ml/min/1.7 3m2 [facility] Comment: The estimated glomerular [...] Churchill MD LABORATORY Performing Organization Address [facility] [[email or web address]] Co de Phone Number [facility] [place] [phone] * MAGNESIUM (11/12/2023 11:36 AM CDT) Magnesium 2.3 1.6 - 2.6 mg/dL [facility] Blood 11/12/2023 11:3 6 AM CDT 11/12/2023 11:49 AM CDT Zac Churchill MD LABORATORY Performing Organization Address [facility] [[email or web address]] Co de Phone Number [facility] [place] [phone] * (ABNORMAL) CBC WITH PLATELET (11/12/2023 11:36 AM CDT) WBC 17.87(H) 4.00 - 10.00 k/cmm [facility] RBC 3.40(L) 4.60 - 6.00 m/cmm [facility] Hgb 9.6(L) 13.1 - 17.5 g/dL [facility] Hematocrit 31.1(L) 40.0 - 51.0 % [facility] MCV 91.5 80.0 - 100.0 fL [facility] MCH 28.2 25.0 - 32.0 pg [facility] MCHC 30.9(L) 31.0 - 36.0 g/dL [facility] RDW 13.6 11.5 - 14.5 % [facility] Plt 287 150 - 400 k/cmm [facility] MPV 10.5 6.5 - 12.5 fL [facility] Blood 11/12/2023 11:3 6 AM CDT 11/12/2023 11:48 AM CDT Zac Churchill MD LABORATORY Performing Organization Address City/[facility]/ZIP Co de Phone Number [facility] [address] [place] [place] [address] * (ABNORMAL) POC GLUCOSE (11/12/2023 11:05 AM CDT) POC Glucose 147(H) 70 - 100 mg/dL [facility] Blood 11/12/2023 11:0 5 AM CDT Jessica Grullon MD LABORATORY Performing Organization Address City/[facility] [[email or web address]] Co de Phone Number [facility] POINT OF [address] * (ABNORMAL) POC GLUCOSE (11/12/2023 10:09 AM CDT) POC Glucose 163(H) 70 - 100 mg/dL [facility] Blood 11/12/2023 10:0 9 AM CDT Jessica Grullon MD LABORATORY Performing Organization Address City/[facility] [[email or web address]] Co de Phone Number [facility] POINT OF [address] * (ABNORMAL) POC GLUCOSE (11/12/2023 9:04 AM CDT) POC Glucose 146(H) 70 - 100 mg/dL [facility] Blood 11/12/2023 9:04 AM CDT Jessica Grullon MD LABORATORY Performing Organization Address City/[facility]/ZIP Co de Phone Number [facility] POINT OF CARE [address] [place] [address], [place] * (ABNORMAL) POC GLUCOSE (11/12/2023 8:01 AM CDT) POC Glucose 152(H) 70 - 100 mg/dL [facility]ARE Blood 11/12/2023 8:01 AM CDT Jessica Grullon MD LABORATORY Performing Organization Address City/[facility] [[email or web address]] Co de Phone Number [facility] POINT OF CARE [address] [place] [address], [place] * (ABNORMAL) POC GLUCOSE (11/12/2023 7:00 AM CDT) POC Glucose 147(H) 70 - 100 mg/dL [facility] Blood 11/12/2023 7:00 AM CDT Jessica Grullon MD LABORATORY Performing Organization Address [facility] [[email or web address]] Co de Phone Number [facility] [address] [place] [address], [place] * (ABNORMAL) POC GLUCOSE (11/12/2023 6:02 AM CDT) POC Glucose 169(H) 70 - 100 mg/dL [facility]ARE Blood 11/12/2023 6:02 AM CDT Jessica Grullon MD LABORATORY Performing Organization Address City/[facility] [[email or web address]] Co de Phone Number [facility] POINT [facility] [address] [place] [address], [place] * (ABNORMAL) POC GLUCOSE (11/12/2023 5:00 AM CDT) POC Glucose 166(H) 70 - 100 mg/dL [facility] PO[facility] CARE Blood 11/12/2023 5:00 AM CDT Jessica Grullon MD LABORATORY [facility] [address] [place] [address], [place] * (ABNORMAL) POC GLUCOSE (11/12/2023 4:02 AM CDT) POC Glucose 178(H) 70 - 100 mg/dL [facility] CARE Blood 11/12/2023 4:02 AM CDT Jessica Grullon MD LABORATORY Performing Organization Address City/[facility]/ZIP Co de Phone Number [facility] [address] [place] [address], [place] * (ABNORMAL) POC GLUCOSE (11/12/2023 3:17 AM CDT) POC Glucose 176(H) 70 - 100 mg/dL [facility] Blood 11/12/2023 3:17 AM CDT Jessica Grullon MD LABORATORY Performing Organization Address City/[facility] [[email or web address]] Co de Phone Number [facility] [address] [place] [address], [place] * (ABNORMAL) POC GLUCOSE (11/12/2023 2:14 AM CDT) POC Glucose 197(H) 70 - 100 mg/dL [facility] Blood 11/12/2023 2:14 AM CDT Jessica Grullon MD LABORATORY Performing Organization Address City/[facility]/ZIP Co de Phone Number [facility] [address] [place] [address], [place] * (ABNORMAL) POC GLUCOSE (11/12/2023 1:02 AM CDT) POC Glucose 195(H) 70 - 100 mg/dL [facility] POINT [facility] CARE Blood 11/12/2023 1:02 AM CDT Jessica Grullon MD LABORATORY [facility] POINT OF CARE [address] [place] [address], [place] * (ABNORMAL) POC GLUCOSE (11/12/2023 12:01 AM CDT) POC Glucose 180(H) 70 - 100 mg/dL [facility] CARE Blood 11/12/2023 12:0 1 AM CDT Jessica Grullon MD LABORATORY Performing Organization Address City/[facility]/ZIP Co de Phone Number [facility] [address] [place] [address], [place] * (ABNORMAL) POC GLUCOSE (11/11/2023 11:01 PM CDT) POC Glucose 185(H) 70 - 100 mg/dL [facility] Blood 11/11/2023 11:0 1 PM CDT Jessica Grullon MD LABORATORY Performing Organization Address City/[facility] [[email or web address] Co de Phone Number [facility] [address] [place] [address], [place] * (ABNORMAL) POC GLUCOSE (11/11/2023 10:00 PM CDT) POC Glucose 167(H) 70 - 100 mg/dL [facility] PO[facility] CARE Blood 11/11/2023 10:0 0 PM CDT Jessica Grullon MD LABORATORY [facility] POINT OF CARE [address] [place] [address], [place] * (ABNORMAL) POC GLUCOSE (11/11/2023 9:01 PM CDT) POC Glucose 148(H) 70 - 100 mg/dL [facility] CARE Blood 11/11/2023 9:01 PM CDT Jessica Grullon MD LABORATORY Performing Organization Address [facility] [[email or web address]] Co de Phone Number [facility] PO[facility] CARE [address] [place] [phone], [place] * (ABNORMAL) POC GLUCOSE (11/11/2023 8:02 PM CDT) POC Glucose 167(H) 70 - 100 mg/dL [facility] PO[facility] CARE Blood 11/11/2023 8:02 PM CDT Jessica Grullon MD LABORATORY Performing Organization Address [facility] de Phone Number [facility] [address] [place] [address], [place] * (ABNORMAL) POC GLUCOSE (11/11/2023 7:02 PM CDT) Pathologist [facility] POC Glucose 180(H) 70 - 100 mg/dL [facility] Blood 11/11/2023 7:02 PM CDT Jessica Grullon MD LABORATORY Performing Organization Address [facility] [[email or web address]] Co de Phone Number [facility] [address] [place] [address], [place] * (ABNORMAL) PANEL BASIC METABOLIC (BMP) (11/11/2023 6:42 PM CDT) Sodium 138 135 - 148 mmol/L [facility] Potassium 4.3 3.5 - 5.3 mmol/L [facility] Chloride 103 92 - 108 mmol/L [facility] CO2 25 22 - 30 mmol/L [facility] AnGap 10 8 - 16 mmol/L [facility] Glucose 181(H) 70 - 100 mg/dL [facility] BUN 21(H) 6 - 20 mg/dL [facility] Creatinine 1.03 0.70 - 1.25 mg/dL [facility] Calcium 8.0(L) 8.6 - 10.0 mg/dL [facility] eGFR (2020 CKD-EPI) 91 >=60 ml/min/1.7 3m2 [facility] Comment: The estimated glomerular [...] Zac Churchill MD LABORATORY Performing Organization Address City/[facility]/ZIP Co de Phone Number [facility] [place] [facility] [place] [address] * (ABNORMAL) POC GLUCOSE (11/11/2023 6:05 PM CDT) POC Glucose 173(H) 70 - 100 mg/dL [facility] Blood 11/11/2023 6:05 PM CDT Jessica Grullon MD LABORATORY Performing Organization Address [facility] [[email or web address]] Co de Phone Number [facility] [place] [address], * (ABNORMAL) POC GLUCOSE (11/11/2023 5:01 PM CDT) POC Glucose 163(H) 70 - 100 mg/dL [facility] Blood 11/11/2023 5:01 PM CDT Jessica Grullon MD LABORATORY Performing Organization Address City/[facility] [[email or web address]] [place] [address], * (ABNORMAL) POC GLUCOSE (11/11/2023 3:47 PM CDT) POC Glucose 138(H) 70 - 100 mg/dL [facility] Blood 11/11/2023 3:47 PM CDT Jessica Grullon MD LABORATORY [facility] [address] [place] [address], [place] * (ABNORMAL) POC GLUCOSE (11/11/2023 3:00 PM CDT) POC Glucose 147(H) 70 - 100 mg/dL [facility] Blood 11/11/2023 3:00 PM CDT Jessica Grullon MD LABORATORY Performing Organization Address City/[facility] [[email or web address] Co de Phone Number [facility] [address] [place] [address], [place] * (ABNORMAL) POC GLUCOSE (11/11/2023 2:12 PM CDT) POC Glucose 147(H) 70 - 100 mg/dL [facility] Blood 11/11/2023 2:12 PM CDT Jessica Grullon MD LABORATORY Performing Organization Address City/[facility] [[email or web address]] Co de Phone Number [facility] [address] [place] [address], [place] * (ABNORMAL) POC GLUCOSE (11/11/2023 1:02 PM CDT) POC Glucose 126(H) 70 - 100 mg/dL [facility] Blood 11/11/2023 1:02 PM CDT Jessica Grullon MD LABORATORY Performing Organization Address City/[facility]/ZIP Co de Phone Number [facility] [address] [place] [address], [place] * (ABNORMAL) POC GLUCOSE (11/11/2023 12:01 PM CDT) POC Glucose 141(H) 70 - 100 mg/dL [facility] Blood 11/11/2023 12:0 1 PM CDT Jessica Grullon MD LABORATORY [facility] [address] [place] [address], [place] * (ABNORMAL) POC GLUCOSE (11/11/2023 11:03 AM CDT) POC Glucose 163(H) 70 - 100 mg/dL [facility] Blood 11/11/2023 11:0 3 AM CDT Jessica Grullon MD LABORATORY Performing Organization Address City/[facility] [[email or web address] Co de Phone Number [facility] [address] [place] [address], [place] * (ABNORMAL) POC GLUCOSE (11/11/2023 9:59 AM CDT) POC Glucose 170(H) 70 - 100 mg/dL [facility] Blood 11/11/2023 9:59 AM CDT Jessica Grullon MD LABORATORY Performing Organization Address City/[facility]/ZIP Co de Phone Number [facility] [address] [place] [address], [place] * (ABNORMAL) POC GLUCOSE (11/11/2023 8:56 AM CDT) POC Glucose 166(H) 70 - 100 mg/dL [facility] Blood 11/11/2023 8:56 AM CDT Jessica Grullon MD LABORATORY Performing Organization Address City/[facility]/ZIP Co de Phone Number [facility] [address] [address], * (ABNORMAL) POC GLUCOSE (11/11/2023 8:01 AM CDT) [facility] POC Glucose 172(H) 70 - 100 mg/dL [facility] Blood 11/11/2023 8:01 AM CDT Jessica Grullon MD LABORATORY Performing Organization Address City/[facility]/ZIP Co de Phone Number [facility] [address] [place] [address], * ICU PHOSPHORUS (11/11/2023 5:36 AM CDT) [facility] Phosphorus 2.9 2.5 - 4.5 mg/dL [facility] Blood 11/11/2023 5:36 AM CDT 11/11/2023 5:45 AM CDT Zac Churchill MD LABORATORY Performing Organization Address City/[facility]/ZIP Co de Phone Number [facility] [address] [address] * (ABNORMAL) ICU MAGNESIUM (11/11/2023 5:36 AM CDT) [facility] Magnesium 1.2(L) 1.6 - 2.6 mg/dL [facility] Blood 11/11/2023 5:36 AM CDT 11/11/2023 5:45 AM CDT Zac Churchill MD LABORATORY Performing Organization Address City/[facility]/ZIP Co de Phone Number [facility] [address] [address] * (ABNORMAL) ICU CBC WITH PLTS/AUTO DIFF (11/11/2023 5:36 AM CDT) [facility] WBC 17.41(H) 4.00 - 10.00 k/cmm [facility] RBC 2.72(L) 4.60 - 6.00 m/cmm [facility] Hgb 7.8(L) 13.1 - 17.5 g/dL [facility] Hematocrit 24.1(L) 40.0 - 51.0 % [facility] MCV 88.6 80.0 - 100.0 fL [facility] MCH 28.7 25.0 - 32.0 pg [facility] MCHC 32.4 31.0 - 36.0 g/dL [facility] RDW 13.2 11.5 - 14.5 % [facility] Plt 203 150 - 400 k/cmm [facility] MPV 10.1 6.5 - 12.5 fL [facility] Automated Abs Neutrophil 13.29(H) 1.70 - 6.50 k/cmm [facility] Comment:Preliminary ANC, Fin al Result to Follow [place] Cell Slight [facility] Toxic Gran Present [facility] Toxic Vac Present [facility] Abs Neutrophil 13.41(H) 1.70 - 6.50 k/cmm [facility] Abs Lymphocyte 2.96 0.80 - 4.00 k/cmm [facility] Abs Monocyte 0.87 0.20 - 1.00 k/cmm [facility] Abs Basophil 0.17 0.00 - 0.20 k/cmm [facility] Blood 11/11/2023 5:36 AM CDT 11/11/2023 5:45 AM CDT Zac Churchill MD LABORATORY [facility] [address] [address] * (ABNORMAL) ICU PANEL BASIC METABOLIC (BMP) (11/11/2023 5:36 AM CDT) AnGap 9 8 - 16 mmol/L [facility] BUN 15 6 - 20 mg/dL [facility] Calcium 6.0(AA) 8.6 - 10.0 mg/dL [facility] Comment:Critical Result Low Chloride 108 92 - 108 mmol/L [facility] CO2 22 22 - 30 mmol/L [facility] Glucose 135(H) 70 - 100 mg/dL [facility] Creatinine 0.93 0.70 - 1.25 mg/dL [facility] Potassium 3.2(L) 3.5 - 5.3 mmol/L [facility] eGFR (2020 CKD-EPI) 103 >=60 ml/min/1.7 3m2 [facility] Comment: The estimated glomerular filtration rate (eGFR) was calculated using the CKD-EPI 2020 creatinine equation, which does not include race as a factor. This equation is validated in individuals 18 years of age and older, and eGFR is normalized to a body surface area of 1.73m^2. Sodium 139 135 - 148 mmol/L [facility] Blood 11/11/2023 5:36 AM CDT 11/11/2023 5:45 AM CDT Narrative [facility] - 11/11/2023 6:25 AM CDT Critical value for Calcium called to and read back by Sheila Dias RN in STN4 at 11/11/2023 06:24:12 CDT by Larry Fuchs MLS. Zac Churchill MD LABORATORY Performing Organization Address City/[facility]/ZIP Co de Phone Number [facility] [place] [address] * (ABNORMAL) POC GLUCOSE (11/11/2023 5:28 AM CDT) POC Glucose 149(H) 70 - 100 mg/dL [facility] Blood 11/11/2023 5:28 AM CDT Jessica Grullon MD LABORATORY Performing Organization Address City/[facility] [[email or web address] Co de Phone Number [facility] [address] [place] [address], [place] * (ABNORMAL) POC GLUCOSE (11/11/2023 4:29 AM CDT) POC Glucose 159(H) 70 - 100 mg/dL [facility] Blood 11/11/2023 4:29 AM CDT Jessica Grullon MD LABORATORY Performing Organization Address City/[facility]/ZIP Co de Phone Number [facility] [address] [place] [address], [place] * (ABNORMAL) POC GLUCOSE (11/11/2023 3:28 AM CDT) POC Glucose 153(H) 70 - 100 mg/dL [facility] Blood 11/11/2023 3:28 AM CDT Jessica Grullon MD LABORATORY Performing Organization Address City/[facility] [[email or web address] Co de Phone Number [facility] [address] [place] [address], [place] * (ABNORMAL) POC GLUCOSE (11/11/2023 2:18 AM CDT) POC Glucose 172(H) 70 - 100 mg/dL [facility] Blood 11/11/2023 2:18 AM CDT Jessica Grullon MD LABORATORY Performing Organization Address City/[facility] [[email or web address] Co de Phone Number [facility] [address] [place] [address], [place] * (ABNORMAL) POC GLUCOSE (11/11/2023 1:03 AM CDT) POC Glucose 171(H) 70 - 100 mg/dL [facility] Blood 11/11/2023 1:03 AM CDT Jessica Grullon MD LABORATORY Performing Organization Address City/[facility] [[email or web address] Co de Phone Number [facility] [address] [place] [address], [place] * (ABNORMAL) POC GLUCOSE (11/10/2023 11:50 PM CDT) POC Glucose 201(H) 70 - 100 mg/dL [facility] Blood 11/10/2023 11:5 0 PM CDT Jessica rGullon MD LABORATORY Performing Organization Address City/[facility]/ZIP Co de Phone Number [facility]ARE [address] [place] [address], [place] * (ABNORMAL) POC GLUCOSE (11/10/2023 10:39 PM CDT) POC Glucose 192(H) 70 - 100 mg/dL [facility] Blood 11/10/2023 10:3 9 PM CDT Jessica Grullon MD LABORATORY [facility] [address] [place] [address], [place] * (ABNORMAL) TROP 6H (11/10/2023 10:15 PM CDT) 6H Trop 35 <=35 ng/L [facility] 6H Delta Significan t(A) Not Significant [facility] Blood 11/10/2023 10:1 5 PM CDT 11/10/2023 10:31 PM CDT Jessica Grullon MD LABORATORY [facility] [address] [place] [address] * (ABNORMAL) POC GLUCOSE (11/10/2023 9:36 PM CDT) POC Glucose 200(H) 70 - 100 mg/dL [facility] Blood 11/10/2023 9:36 PM CDT Jessica Grullon MD LABORATORY [facility] [address] [place] [address], [place] * (ABNORMAL) POC GLUCOSE (11/10/2023 8:17 PM CDT) POC Glucose 221(H) 70 - 100 mg/dL [facility] Blood 11/10/2023 8:17 PM CDT Jessica Grullon MD LABORATORY Performing Organization Address [facility] [[email or web address]] Co de Phone Number [address] [address], * (ABNORMAL) POC GLUCOSE (11/10/2023 7:07 PM CDT) POC Glucose 227(H) 70 - 100 mg/dL [facility] Blood 11/10/2023 7:07 PM CDT Jessica Grullon MD LABORATORY Performing Organization Address [facility] [[email or web address]] Co de Phone Number [address] [address], [place] * (ABNORMAL) TROP 2H (11/10/2023 6:34 PM CDT) 2H Trop 21 <=35 ng/L [facility] 2H Delta Significan t(A) Not Significant [facility] Blood 11/10/2023 6:34 PM CDT 11/10/2023 6:37 PM CDT Jessica Grullon MD LABORATORY Performing Organization Address [facility] [[email or web address]] Co de Phone Number [facility] [address] [address] * (ABNORMAL) LACTATE (LACTIC ACID) (11/10/2023 6:34 PM CDT) Lactate 14.6(H) 0.7 - 2.1 mmol/L [facility] Blood 11/10/2023 6:34 PM CDT 11/10/2023 6:37 PM CDT Narrative [facility] - 11/10/2023 6:41 PM CDT Send specimen on ice! Jessica Grullon MD LABORATORY Performing Organization Address City/[facility]/ZIP Co de Phone Number [facility] [address] [address] * (ABNORMAL) POC GLUCOSE (11/10/2023 6:07 PM CDT) POC Glucose 201(H) 70 - 100 mg/dL [facility] Blood 11/10/2023 6:07 PM CDT Jessica Grullon MD LABORATORY Performing Organization Address [facility] [[email or web address] Co de Phone Number [facility] [address] [place] [address], * (ABNORMAL) POC GLUCOSE (11/10/2023 5:30 PM CDT) POC Glucose 197(H) 70 - 100 mg/dL [facility] Blood 11/10/2023 5:30 PM CDT Jessica Grullon MD LABORATORY Performing Organization Address [facility] de Phone Number [facility] [address] [place] [address], [place] * M TUBERCULOSIS AMPLIFICATION (11/10/2023 5:13 PM CDT) Final Report M. tuberculosis complex DNA not detected. [facility] Tissue STRUCTURE OF PERINEAL BODY / Unknown 11/10/2023 5:13 PM CDT 11/11/2023 10:50 AM CDT Comment:2:Perineal tissue Narrative [facility] - 11/11/2023 3:22 PM CDT This assay uses PCR nucleic acid amplification to detect Mycobacterium tuberculosis complex DNA. ??This test was developed and its performance characteristics determined by [facility]. ??It has not been cleared or approved by the U.S. Food and Drug Administration. ??FDA does not require this test to go through premarket FDA review. ??This test is used for clinical purposes. ??It should not be regarded as investigational or for research. ??[facility] Laboratory is certified under the Clinical Laboratory Improvement Amendments of 1988 (CLIA) as qualified to perform high complexity clinical laboratory testing. Zac Churchill MD LAB MICROBIOLOGY Performing Organization Address [facility] [[email or web address]] Co de Phone Number [facility] [address] [address] * (ABNORMAL) TISSUE CULTURE:INCLUDES GRAM STAIN (11/10/2023 5:13 PM CDT) Final Report Positive Culture Rare Actinomyces species isolated. Most closely resembles Actinomyces hominis. Rare Staphylococcus pettenkoferi isolated. A member of the coagulase-negative Staphylococci. Staphylococcus epidermidis isolated in broth only. No further work-up. Plates held one week. (POS) [facility] Organism ACTINOMYCES SPECIES(POS) [facility] Organism STAPHYLOCOCCUS PETTENKOFERI(POS) [facility] Organism STAPHYLOCOCCUS EPIDERMIDIS(POS) [facility] Gram Stain Report Positive Gram stain Gram stain electronically reported to and acknowledged by: Fermin Osborn MD for Burn on 11/10/2023 18:43:03 by Silver Luna MLS Rare WBC's seen. Many gram positive cocci in clusters. (POS) [facility] Tissue STRUCTURE OF PERINEAL BODY / Unknown 11/10/2023 5:13 PM CDT Zac Churchill MD LAB MICROBIOLOGY Performing Organization Address [facility] [[email or web address] Co de Phone Number [facility] [address] [address] * FUNGUS CULTURE:INCLUDES SUHAS (11/10/2023 5:13 PM CDT) Final Report No fungus isolated. [facility] SUHAS Prep No fungal elements seen. [facility] Tissue STRUCTURE OF PERINEAL BODY / Unknown 11/10/2023 5:13 PM CDT Zac Churchill MD LAB MICROBIOLOGY Performing Organization Address [facility] [[email or web address]] Co de Phone Number [facility] [address] [address] * (ABNORMAL) ANAEROBE CULTURE (11/10/2023 5:13 PM CDT) Final Report Positive Culture Many mixed anaerobes present. (POS) [facility] Tissue STRUCTURE OF PERINEAL BODY / Unknown 11/10/2023 5:13 PM CDT Zac Churchill MD LAB MICROBIOLOGY Performing Organization Address [facility] [[email or web address]] Co de Phone Number [facility] [address] [address] * AFB CULTURE:INCLUDES AFB SMEAR (11/10/2023 5:13 PM CDT) Final Report No acid fast bacilli isolated. [facility] Acid Fast Stain No acid fast bacilli seen. [facility] Tissue STRUCTURE OF PERINEAL BODY / Unknown 11/10/2023 5:13 PM CDT Zac Churchill MD LAB MICROBIOLOGY Performing Organization Address [facility] [[email or web address] Co de Phone Number [facility] [address] [address] * (ABNORMAL) WOUND CULTURE:GRAM STAIN OPTIONAL (11/10/2023 5:12 PM CDT) Final Report Rare Actinomyces species isolated. Most closely resembles Actinomyces hominis. One colony Staphylococcus epidermidis isolated. (POS) [facility] Organism ACTINOMYCES SPECIES(POS) [facility] Organism STAPHYLOCOCCUS EPIDERMIDIS(POS) [facility] Gram Stain Report Many WBC's seen. Many gram positive cocci in clusters. [facility] Swab STRUCTURE OF PERINEAL BODY / Unknown 11/10/2023 5:12 PM CDT Narrative [facility] - 11/12/2023 3:34 PM CDT Do you want a gram stain: No Zac Churchill MD LAB MICROBIOLOGY Performing Organization Address [facility] [[email or web address] Co de Phone Number [facility] [address] [address] * FUNGUS CULTURE:INCLUDES SUHAS (11/10/2023 5:12 PM CDT) Final Report No fungus isolated. [facility] SUHAS Prep No fungal elements seen. [facility] Swab STRUCTURE OF PERINEAL BODY / Unknown 11/10/2023 5:12 PM CDT Zac Churchill MD LAB MICROBIOLOGY Performing Organization Address [facility] [[email or web address]] Co de Phone Number [facility] [address] [address] * ANAEROBE CULTURE (11/10/2023 5:12 PM CDT) Final Report Moderate mixed anaerobes present. [facility] Swab STRUCTURE OF PERINEAL BODY / Unknown 11/10/2023 5:12 PM CDT Zac Churchill MD LAB MICROBIOLOGY Performing Organization Address [facility] [[email or web address]] Co de Phone Number [facility] [address] [address] * (ABNORMAL) POC GLUCOSE (11/10/2023 4:28 PM CDT) POC Glucose 236(H) 70 - 100 mg/dL [facility] Blood 11/10/2023 4:28 PM CDT Jessica Grullon MD LABORATORY Performing Organization Address [facility] [[email or web address] Co de Phone Number [facility] PO[facility] OF [address] [address], * ED EKG (12-LEAD) (11/10/2023 3:21 PM CDT) 11/10/2023 3:21 PM CDT Impressions [facility] CVIS EKG ORDERS - 11/10/2023 3:21 PM CDT SINUS TACHYCARDIA MINIMAL ST DEPRESSION ??[0.025+ mV ST DEPRESSION] ABNORMAL QRS-T ANGLE ??[QRS-T AXIS DIFFERENCE > 60] NONSPECIFIC ST AND T WAVE ABNORMALITY. ABNORMAL ECG P-R Interval 138 ms QRS Interval 90 ms QT Interval 348 ms QTC Interval 405 ms P [place] 35 QRS [place] 1 T Wave [place] 148 Narrative Procedure Note Jessica Grullon MD - 11/10/2023 IMPRESSION S[address]US TACHYCARDIA MINIMAL ST DEPRESSION [0.025+ mV ST DEPRESSION] ABNORMAL QRS-T ANGLE [QRS-T AXIS DIFFERENCE > 60] NONSPECIFIC ST AND T WAVE ABNORMALITY. 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 ??No initial report accompanied the patient and/or Dr. ??JESSICA GRULLON requested an interpretation by me. Technique: ??CT scan of the left lower extremity done on 11/10/2023 with IV contrast. 2 mm axial, sagittal and coronal reconstructions reviewed in soft tissue and bone windows, per the local institution's scanning protocols, which may differ from the [facility] trauma protocols. Findings: ??Subcutaneous emphysema [...] CHERELLE - 11/10/2023 Indication: Patient transferred from [facility] due toFournier's gangrene. No initial report accompanied the patient and/or Dr.ROCHELLE GRULLON requested an interpretation by me. Technique: CT scan of the left lower extremity done on 11/10/2023 with IVcontrast. 2 mm axial, sagittal and coronal reconstructions reviewed insoft tissue and bone windows, per the local institution's scanningprotocols, which may differ from the [facility] trauma protocols. 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 ??No initial report accompanied the patient and/or Dr. ??JESSICA GRULLON requested an interpretation by me. Technique: ??CT scan of the abdomen/pelvis done on 11/10/2023 ??with IV contrast. ??3 mm axial, sagittal and coronal reconstructions reviewed in soft tissue and bone windows, per the local institution's scanning protocols, which may differ from the [facility] trauma protocols. Comparison: Same day [...] of the thoracic spine. Procedure Note Praful Woodson, CHERELLE - 11/10/2023 Indication: Patient transferred from [facility] due toFournier's gangrene. No initial report accompanied the patient and/or Dr.ROCHELLE GRULLON requested an interpretation by me. Technique: CT scan of the abdomen/pelvis done on 11/10/2023 with IVcontrast. 3 mm axial, sagittal and coronal reconstructions reviewed insoft tissue and bone windows, per the local institution's scanningprotocols, which may differ from the [facility] trauma protocols. Comparison: Same day [...] (11/10/2023 2:40 PM CDT) Color YELLOW YELLOW [facility] Appearance CLEAR CLEAR [facility] Urine Glucose >=1000(A) NEGATIVE mg/dL [facility] Bili UA NEGATIVE NEGATIVE [facility] Ketones TRACE(A) NEGATIVE [facility] Blood Ur LARGE(A) Neg-Trace [facility] PH Urine 6.5 5.0 - 7.0 [facility] Protein Ur >=600(A) Neg-Trace [facility] Urobilinogen NORMAL NORMAL EU/dL [facility] Nitrite Ur NEGATIVE NEGATIVE [facility] Leuk Est NEGATIVE Neg-Trace [facility] WBC Ur 0-5 0 - 5 perHPF [facility] RBC Ur 11-20(A) 0 - 3 perHPF [facility] SQ EPITH 0-5 0 - 5 perHPF [facility] Mucus 1+ perLPF [facility] Bacteria UA PRESENT [facility] Comment:Presence of bacteria does not necessarily indicate a UTI. The presence of bacteria can indicate a non-clean catch urine specimen. Bacteria should be used in conjunction with other UA results and clinical presentation to assist in diagnosing an infection. Urinalysis Performed at: [facility] Specific [place] 1.020 1.003 - 1.030 [facility] Urine 11/10/2023 2:40 PM CDT 11/10/2023 2:47 PM CDT Jessica Grullon MD LABORATORY Performing Organization Address City/[facility]/ZIP Co de Phone Number [facility] [address] [address] * BLOOD AEROBIC/ANAEROBIC CULTURE (11/10/2023 2:39 PM CDT) Final Report No growth after 5 days. [facility] Blood (Peripheral) 11/10/2023 2:39 PM CDT 11/10/2023 4:09 PM CDT Jessica Grullon MD LAB MICROBIOLOGY Performing Organization Address City/[facility]/ZIP Co de Phone Number [facility] [address] [address] * BLOOD AEROBIC/ANAEROBIC CULTURE (11/10/2023 2:37 PM CDT) Final Report No growth after 5 days. [facility] Blood (Peripheral) 11/10/2023 2:37 PM CDT 11/10/2023 4:09 PM CDT Jessica Grullon MD LAB MICROBIOLOGY Performing Organization Address [facility] [[email or web address]] Co de Phone Number [facility] [address] [address] * (ABNORMAL) SED RATE (ESR) (11/10/2023 2:31 PM CDT) Pathologist [facility] Sed Rate 120(H) 2 - 10 mm/hr [facility] Blood 11/10/2023 2:31 PM CDT 11/10/2023 2:57 PM CDT Jessica Grullon MD LABORATORY Performing Organization Address [facility] de Phone Number [facility] [address] [address] * EXTRA TUBE - SST (11/10/2023 2:31 PM CDT) Pathologist [facility] SST TUBE Stored [facility] Comment:SST tubes (Serum Sep arator) are stored in the lab for 3 days from the collection date. Blood 11/10/2023 2:31 PM CDT 11/10/2023 2:43 PM CDT Jessica Grullon MD LABORATORY Performing Organization Address [facility] de Phone Number [facility] [address] [address] * (ABNORMAL) HS TROPONIN (11/10/2023 2:31 PM CDT) Pathologist [facility] HS Troponin I 49(H) <=35 ng/L [facility] Blood 11/10/2023 2:31 PM CDT 11/10/2023 2:57 PM CDT Narrative [facility] - 11/10/2023 3:25 PM CDT First Occurrence of the Troponin order is to be drawn Stat by Nursing staff on the unit. Jessica Grullon MD LABORATORY Performing Organization Address [facility] [[email or web address]] Co de Phone Number [facility] [address] [address] * ETHANOL (ETOH) LEVEL, BLOOD (11/10/2023 2:31 PM CDT) Ethanol Negative Negative g/dL [facility] Blood 11/10/2023 2:31 PM CDT 11/10/2023 2:57 PM CDT Jessica Grullon MD LABORATORY Performing Organization Address [facility] [[email or web address]] Co de Phone Number [facility] [address] [address] * PTT (APTT) (11/10/2023 2:31 PM CDT) APTT 32.9 25.0 - 37.0 sec [facility] Blood 11/10/2023 2:31 PM CDT 11/10/2023 2:57 PM CDT Jessica Grullon MD LABORATORY Performing Organization Address [facility] de Phone Number [facility] [address] [address] * ED INR (11/10/2023 2:31 PM CDT) ED INR 1.1 0.8 - 1.1 [facility] Comment: Warfarin Therapeutic Range: Standard Intensity: 2.0 - 3.0 High Intensity: 2.5 - 3.5 This is a rapid INR screening test which uses whole blood; results may infrequently differ from plasma INR results. If medication adjustments/dosing are required a PT/INR test ([id number]) should be ordered and performed in the main laboratory. Blood 11/10/2023 2:31 PM CDT 11/10/2023 2:41 PM CDT Jessica Grullon MD LABORATORY Performing Organization Address [facility] [[email or web address]] Co de Phone Number [facility] [address] [address] * (ABNORMAL) LACTATE (LACTIC ACID) (11/10/2023 2:31 PM CDT) Pathologist [facility] Lactate 2.3(H) 0.7 - 2.1 mmol/L [facility] Blood 11/10/2023 2:31 PM CDT 11/10/2023 2:45 PM CDT Narrative [facility] - 11/10/2023 2:49 PM CDT Send specimen on ice! Jessica Grullon MD LABORATORY Performing Organization Address [facility] [[email or web address]] Co de Phone Number [facility] [address] [address] * (ABNORMAL) FIBRINOGEN (11/10/2023 2:31 PM CDT) [facility] Fibrinogen >1,000(H) 200 - 400 mg/dL [facility] Blood 11/10/2023 2:31 PM CDT 11/10/2023 2:57 PM CDT Jessica Grullon MD LABORATORY Performing Organization Address [facility] [[email or web address]] Co de Phone Number [facility] [address] [address] * (ABNORMAL) PANEL HEPATIC FUNCTION (11/10/2023 2:31 PM CDT) Pathologist [facility] Total Protein 7.1 6.4 - 8.3 g/dL [facility] Albumin 2.9(L) 3.8 - 5.1 g/dL [facility] Bili Total 0.3 <=1.2 mg/dL [facility] Bili Direct <0.2 <=0.3 mg/dL [facility] Alk Phos 104 40 - 129 IU/L [facility] Comment:No reference range e stablished for patients <18 years old. ALT (SGPT) 9 <=41 IU/L [facility] AST(SGOT) 14 5 - 40 IU/L [facility] Blood 11/10/2023 2:31 PM CDT 11/10/2023 2:57 PM CDT Jessica Grullon MD LABORATORY [facility] [address] [address] * (ABNORMAL) ED HEMOGLOBIN TOTAL (ED ONLY) (11/10/2023 2:31 PM CDT) Hgb 12.4(L) 13.1 - 17.5 g/dL [facility] Blood 11/10/2023 2:31 PM CDT 11/10/2023 2:45 PM CDT Jessica Grullon MD LABORATORY Performing Organization Address City/[facility] [[email or web address]] Co de Phone Number [facility] [address] [address] * (ABNORMAL) ED CHEMISTRY LABS(NA,K,CL,CO2,GLU,CREAT,CA-IONIZED,ANION GAP) (11/10/2023 2:31 PM CDT) Sodium 133(L) 135 - 148 mmol/L [facility] Potassium 3.7 3.5 - 5.3 mmol/L [facility] Chloride 93 92 - 108 mmol/L [facility] AnGap 12 8 - 16 mmol/L [facility] Glucose 304(H) 70 - 100 mg/dL [facility] ICA, Actual 4.14(L) 4.40 - 5.20 mg/dL [facility] ICA, pH Corrected 4.29(L) 4.40 - 5.20 mg/dL [facility] Creatinine 0.98 0.70 - 1.25 mg/dL [facility] BICARB 27(H) 22 - 26 mEq/L [facility] eGFR (2020 CKD-EPI) 97 >=60 ml/min/1.7 3m2 [facility] Comment: The estimated glomerular filtration rate (eGFR) was calculated using the CKD-EPI 2020 creatinine equation, which does not include race as a factor. This equation is validated in individuals 18 years of age and older, and eGFR is normalized to a body surface area of 1.73m^2. Blood 11/10/2023 2:31 PM CDT 11/10/2023 2:45 PM CDT Jessica Grullon MD LABORATORY [facility] [address] [place] [address] * (ABNORMAL) CBC WITH PLTS/AUTO DIFF (11/10/2023 2:31 PM CDT) WBC 21.95(H) 4.00 - 10.00 k/cmm [facility] RBC 4.26(L) 4.60 - 6.00 m/cmm [facility] Hgb 12.0(L) 13.1 - 17.5 g/dL [facility] Hematocrit 36.3(L) 40.0 - 51.0 % [facility] MCV 85.2 80.0 - 100.0 fL [facility] MCH 28.2 25.0 - 32.0 pg [facility] MCHC 33.1 31.0 - 36.0 g/dL [facility] RDW 12.9 11.5 - 14.5 % [facility] Plt 262 150 - 400 k/cmm [facility] MPV 10.1 6.5 - 12.5 fL [facility] Automated Abs Neutrophil 18.29(H) 1.70 - 6.50 k/cmm [facility] Comment:Preliminary ANC, Fin al Result to Follow Abs Immature Granulocyte 0.26(H) 0.00 - 0.09 k/cmm [facility] Comment:The Immature Granulo cyte Absolute count contains metamyelocytes and myelocytes. Abs Neutrophil 18.29(H) 1.70 - 6.50 k/cmm [facility] Abs Lymphocyte 1.53 0.80 - 4.00 k/cmm [facility] Abs Monocyte 1.83(H) 0.20 - 1.00 k/cmm [facility] Abs Eosinophil 0.00 0.00 - 0.60 k/cmm [facility] Abs Basophil 0.04 0.00 - 0.20 k/cmm [facility] Polychromasia Slight [facility] Dohle Body Present [facility] Toxic Vac Present [facility] Blood 11/10/2023 2:31 PM CDT 11/10/2023 2:57 PM CDT Jessica Grullon MD LABORATORY Performing Organization Address [facility]/ZIP Co de Phone Number [facility] [address] [address] * (ABNORMAL) BLOOD GASES (11/10/2023 2:31 PM CDT) PH [place] 7.47(H) 7.32 - 7.42 [facility] PCO2 Mayo 38(L) 41 - 51 mmHG [facility] PO2 Mayo 75(H) 25 - 40 mmHG [facility] Bicarb Mayo 27 24 - 28 mEq/L [facility] O2 Sat Mayo 96 % [facility] Base Exc [place] 3.7(H) -10.0 - 2.0 mmol/L [facility] Blood Venous 11/10/2023 2:31 PM CDT 11/10/2023 2:45 PM CDT Jessica Grullon MD LABORATORY Performing Organization Address [facility]/ZIP Co de Phone Number [facility] [address] [address] * ANTIBODY SCREEN (11/10/2023 2:29 PM CDT) Lilly Screen Negative [facility] Blood 11/10/2023 2:29 PM CDT 11/10/2023 2:49 PM CDT Jessica Grullon MD LAB TRANSFUSION SER VICES Performing Organization Address City/[facility]/ZIP Co de Phone Number [facility] [address] [address] * BLOOD TYPING-ABO/RH (11/10/2023 2:29 PM CDT) ABORHG A POS [facility] Blood 11/10/2023 2:29 PM CDT 11/10/2023 2:49 PM CDT Jessica Grullon MD LAB TRANSFUSION SER VICES Performing Organization Address City/[facility]/ZIP Co de Phone Number [facility] [address] [address] * PRECAUTIONARY TUBE (11/10/2023 2:29 PM CDT) Prec Tube Precautionary Blood Bank Specimen Received. [facility] Blood 11/10/2023 2:29 PM CDT 11/10/2023 2:49 PM CDT Jessica Grullon MD LAB TRANSFUSION SER VICES Performing Organization Address [facility] [[email or web address]] Co de Phone Number [facility] [address] [address] * ED US CRITICAL CARE (11/10/2023 2:28 PM CDT) Anatomical Region Laterality Modality Ultrasound Narrative 11/10/2023 3:16 PM CDT ED Critical Care Resuscitative Ultrasound ED Cardiac Ultrasound Body Areas Imaged: Heart, Chest Wall/Lungs, and Inferior Vena Cava Indications:Shock/Sepsis Window: Subxiphoid, Parasternal Short [place], Parasternal Long [place], Apical 4-Chamber, and Bilateral Lungs Findings: The [...] 11/22/2023 8:35 PM CDT 20 mg heparin 53330 UNITS/mL injection 7,500 UNITS 7,500 UNITS, Subcutaneous, [...] Discontinued 09 (Given - Provider: John Taylor RN)1423 (Given - Provider: Demetra Brito, SABINE)2029 (Given - Provider: Irene Min RN) 750 [...] dose on Wed11/11/23 at 1200, Until Discontinued 09 (Given - Provider: John Taylor RN)1423 (Given [...] (Given - Provider: Sheila Dias, RN) heparin 56241 UNITS/mL injection 7,500 UNITS 7,500 UNITS, Subcutaneous, [...] modification) on Wed11/11/23 at 2000, Until Discontinued 39 (Not Given (removes Due [...] First) 0908 (Given - Provider: John Taylor, RN)1424 (Given - Provider: Demetra Brito, SABINE) 2024 (Given - Provider: Sheila Dias, SABINE) 0952 (Given - Provider: Kate Harmon, SABINE) Linked Groups Order Group 1: DC [...]
--- OUTSIDE RECORDS SUMMARY | 2024-02-14 09:09 | XMS_ITS | Encounter Summary ---
Author Organization [facility] Address [address] [place] [address] Phone Care Team Providers Care Steel Plate Caulker Name Role Phone Unavailable Primary Care Provider Unavailabl e Reason for Visit * Auth/Cert (Routine) Specialty Diagnoses / Procedures Referred By Contmini t Referred To Contact SURGERY Diagnoses 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HHS) Hyperglycemia Zac Jackson MD [address] [place] [address] [address] [place] [address] [address] [place] [phone] [place] [address] Referral ID Status Reason Start Date Expiration Date Visits Re quested Visits Authorized [id number] 1 1 Encounter Details Date Type Department Care Team (Late st Contact Info) Description 11/10/2023 4:31 PM CDT Anesthesia Event OR P4 [address] [place] [address] Dontae Higgins MD [address] [place], [place] [address] Clint Barger MD [address] [place], [place] [phone] Anesthesia Record Procedure Summary Procedure Name Responsible [...] I+D site 11/11/23 11/10/23 1707 by Jeannie Wiely RN Peripheral IV 11/10/23; 20 gauge; Right; [...] 1759 11/10/23 1647 by Afshan Tam APRN, TURBO ELECTRIC OPERATOR 11/10/23 1759 by Afshan Tam APRN, RALEIGH [...] [facility] type: General () Patient location: [...] mucosa unchanged and dentition unchanged Performed by: TURBO ELECTRIC OPERATOR: Afshan Tam APRN, CRNA Additional Notes Mask [...] GI (+) obesity Hematologic/Onc - negative ROS /Renal/Ski Guide ROS comment: Founier's gangrene Airway Mallampati: II TM distance: >3 FB Neck ROM: full Mouth Opening: good Dental (+) poor dentition Risk of dental damage discussed with patient/guardian who acknowledges understanding. OB Other Physical Exam Anesthesia Plan ASA 3 - emergent general intravenous induction Maintenance: Balanced Post-op Care: routine analgesia Anesthetic plan and risks discussed with patient. Plan discussed with TURBO ELECTRIC OPERATOR. Vitals: 11/10/23 1530 BP: 117/75 Pulse: 98 [...]
--- OUTSIDE RECORDS SUMMARY | 2024-02-14 09:09 | XMS_ITS | Encounter Summary ---
Author Organization [facility] Address [address] [place] [id number] Phone Care Team Providers Care Brick Kiln Burner Name Role Phone Unavailable Primary Care Provider [...]
--- OUTSIDE RECORDS SUMMARY | 2024-02-14 09:11 | XMS_ITS | Encounter Summary ---
Author Organization [facility] Address [address] [place] [address]. [place] [address] Phone Care Team Providers Care Environmental Engineering Aide Name Role Phone Unavailable Primary Care Provider Unavailabl e Reason for Visit * Reason Comments Fever Penis/Scrotal Problem Toe Problem * Auth/Cert (Routine) Specialty Diagnoses / Procedures Referred By Katherine t Referred To Contact SURGERY Diagnoses 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HHS) Hyperglycemia Zac Churchill MD [address] [place] [address] [address] [place] [address] R4.500 [place] [address] Referral ID Status Reason Start Date Expiration Date Visits Re quested Visits Authorized [id number] 1 1 Encounter Details Date Type Department Care Team (Late st Contact Info) Description 11/10/2023 4:00 PM CDT - 11/10/2023 5:42 PM CDT Surgery OR P4 [address] [place] [address] Zac Churchill MD [address] [id number] Excisional debridement, PERINEAL NEC FASC Social History [...] encounter Discharge Summaries * 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, JAROD, INTERNET CAFE MANAGER - 11/25/2023 7:37 AM CDT GENERAL SURGERY DISCHARGE SUMMARY - CREDIT CHARGE AUTHORIZER Stephanie Low : 1980 Sex: male Date of Admission: 11/10/2023 Date of Discharge: 11/25/2023 Disposition: Senior Care Facility Primary care physician: No primary care provider on file. Attending Staff: Zac Churchill MD Significant physician provider(s): Jay Ibanez MD ; Donovan Sloan MD; Che Palomo DPM; Afshan Sims DPM; Paula Black DPM; Sophie Barajas MD; Shnai Shaw MD; Scar Leyva MD No Known [...] will follow up with 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 APRN, INTERNET CAFE MANAGER Malnutrition Weight: (!) 142.9 kg (315 lb 1.6 oz) Wt Change from Previous: 0 Kg Wt Change from Admit: 2.43 Kg % Wt Change from Adm: 1.73 % Caney Body Wt (IBW) Male (kg): 75.26 kg [...] oriented x 3. No gross focal deficits Porter Baggage Needed: no PLANNED DISCHARGE ORDERS: Suture/Villard: None Wound Care Plan: Location: Perineal; Dressing: [...] of plan of care? Yes Okay for Senior Care Facility standing orders? Question Response Notes OK for Senior Care Facility house standing orders? Yes Other Nursing [...] 4:30PM, M-F): Call the Surgery Clinic at [phone] After hours or on Holidays: Call the [facility] tool shaper setup operator . Ask the tool shaper setup operator to page the general surgery resident it consulting director. IF: -- you feel you are getting [...] -- Read all labels for prescription and Fqwh-cfd-ucyerho medicines. Ask the pharmacist if your prescription [...] Your Medications These medications were sent to [facility] Discharge [facility] - [place] [id number] Hours: 30/11 insulin LISPRO 100 UNIT/ML Kwikpen [...] in real time. Please contact me via [facility] staff message if you note any errors [...] - Resources for patient (select all that apply):[id number]} documented in this encounter Medications at Time [...] the discharge summary paperwork with medication orders. Clinical Interviewer opened admission encounter and re-faxed discharge paperwork to the provided fax # of [phone]. Tried a second fax # after this wasn't received, which also wasn't received. Third attempt made viaencrypter email. Confirmed received paperwork via encrypted email. Pepe Hernandez RN, 11/25/2023 9:33 PM ED Clinical Coordinator Office: [phone] [employer]: ED Clinical Coordinator * Kate Harmon [...] by 12:50 PM) with Dr Palomo ([facility]-5th floor) since he is discharging to [place].Follows with [facility] when closer to home otherwise. Please page it consulting director resident with questions. Interval History Patient was [...] CDT Preadmission Screening Submitter InformationPerson Being ReferredMedical InformationADLSt. Joseph's Medical CenterSubmitResults Results Thank you for submitting [...] help, contact the Senior LinkAge Line at [phone] or click to contact us. Print this page You have successfully submitted the preadmission screening (PAS) to the Senior LinkAge Line on: Created On 11/24/2023 2:25 PM Your confirmation number is: [id number] Results Level of Care: Based on the information you provided, it appears this person meets level of care for purposes of [place] payment. OBRA: It appears this person does not need an OBRA Level II assessment. Submitter Information Form Type PAS Submitter First and Last Name Caridad Dorsey Direct Agency [facility] [address] [place] [address] [place] [address] Is your Agency [place]? Person Being Admitted to Nursing Facility Legal first name Matt Last name Stephanie Date of 1980 Age 43 Gender Male Marital Status N= Never Race A = B = Black or N = or [place] P = [place] or W = White U = Unable to Determine Ethnicity Not / Currently living with: 01 Living Alone Planned living with 04 Living in Congregate Setting Housing Type Home or apartment, including assisted living (09) Mailing Address [address] [place] [address] [place] [address] [facility] Medical Information Reason for nursing facility [...] facility the person will admit to?Yes Provider [facility] Nursing Facility Nursing Facility Service Type Fpc [address] [place] [address] Zip Code [address] [place] [address] If your provider is not listed check [...] follow-up. Did not ask * 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, STAGECRAFT PROFESSOR, INTERNET CAFE MANAGER - 11/24/2023 1:43 PM CDT SURGERY PROGRESS NOTE--CREDIT CHARGE AUTHORIZER Stephanie Low : 1980 Sex: male SIGNIFICANT [...] for discharge. Planning on discharge today to [facility] pending insurance approval. PLAN: Neuro/Pain Control: Multimodal [...] Trend WBCs and fever Skin/Wounds: Perineal debridement gmcx-hzd-yy-dry dressings with Vashe; Left hallux amputation -Betadine with 4 x 4 DVT prophylaxis: Lovenox and SCDs Weight Bearing: Heel touch WB in surgical shoe. On the LLW Activity: Ad celia PT/OT: Appreciate Recs Disposition: [facility] on 11/24/23 pending insurance authorization 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 APRN, CNP, 11/24/2023 1:43 PM [facility] [...] in real time. Please contact me via [facility] staff message if you note any errors [...] Dr Type of ride: Transportation [employer] #conformation [id number] Transportation vendor of ride (choose one below):* [facility] [phone] If this ride needs to be [...] Clinical Coordinators will be informed via a TelPingTune page. PCS form was completed in Progress [...] sex Attending provider: Zac Churchill MD Insurance: [facility] Secondary insurance: [employer]ICAL [employer]ISTANCE Height: Height: [...] care/Home mgmt/ADL: 18 minutes EDWIN Alvarado/Brian Pager: [employer] OT Department Problem: Loss of Galax With ADLs, Risk for Goal: Will complete lower body dressing Description: Patient will complete lower body dressing with Modified Galax (6). Outcome: In progress Goal: Will toilet self Description: Patient will toilet self with Modified Galax (6). Outcome: In progress * Lior Azul [...] Selected Services Address Phone Fax Patient Preferred [facility] Selected [facility] Care [address] [facility] [address] -- Internal Comment last updated by Lior Azul 11/24/2023 0805 Pending prior auth. Lior Azul, 11/24/2023 8:05 AM Received VM saying they would accept . LVM saying we would accept bed.. Caridad Dorsey, 11/24/2023 7:50 AM Admissions is currently reviewing .Caridad Dorsey, 11/23/2023 9:31 AM No bd available until next week. Caridad Dorsey, 11/18/2023 8:34 AM [facility], [facility] ([facility]) Accepted N/A [address] [facility] [address] [phone] -- Internal Comment last updated by Lior Azul 11/24/2023 0840 They can offer us a bed here but we already found one in [place]. Lior Azul, 11/24/2023 8:40 AM [facility] Pending - Request Sent N/A [address] [facility] [address] [phone] -- Internal Comment last updated by Cairdad Dorsey 11/23/2023 0937 LVM for admissions .Caridad Dorsey, 11/23/2023 9:37 AM [facility] Declined Current smoking, Bariatric N/A [address] [facility] [address] [phone] -- The [facility], [facility] Declined Distance N/A [address] [place] [address], [facility] [address] [phone] -- Internal Comment last updated by Lior Azul 11/22/2023 1218 This is too far from where patient lives. Lior Azul, 11/22/2023 12:18 PM Sent e mail to [facility] .Caridad Dorsey, 11/22/2023 8:10 AM LVM for admissions .Caridad Dorsey, 11/19/2023 7:44 AM Sent email to Missy.Caridad Dorsey, 11/17/2023 2:24 PM [facility] Declined No Contract with Patient's Insurance Carrier N/A [address] [place] [address] [phone] -- [facility] Declined Current smoking, Ac[place] [address] [facility] [address] [phone] -- Internal Comment last updated by Caridad Dorsey 11/18/2023 0831 LVM for admissions.Caridad Dorsey, 11/18/2023 8:31 AM [facility] Bed not available N/A [address] [facility] [address] [phone] -- Internal Comment last updated by Lior Azul 11/23/2023 1415 Looking for a bed in the [facility] .Caridad Dorsey, 11/23/2023 9:35 AM LVM for admissions.Caridad Dorsey, 11/19/2023 8:17 AM LVM for admissions.Caridad Dorsey, 11/18/2023 8:37 AM [facility] Declined Bed not available N/A [address] [facility] [address] [phone] -- The [facility] Declined Bed not available N/A [address] [facility] [phone] -- [facility] Declined Bed not available N/A [address] [facility] [address] [phone] -- Home Medical Care No active coordination exists for this encounter. * 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, PATRICIA OLIVERA - 11/23/2023 3:06 PM CDT SURGERY PROGRESS NOTE--CREDIT CHARGE AUTHORIZER Stephanie Low : 1980 Sex: male SIGNIFICANT [...] Trend WBCs and fever Skin/Wounds: Perineal debridement wmxh-afn-mb-dry dressings with Vashe; Left hallux amputation -Betadine [...] in real time. Please contact me via [facility] staff message if you note any errors [...] Selected Services Address Phone Fax Patient Preferred [facility] Pending - Request Sent N/A [address] [facility] [phone] -- Internal Comment last updated by Caridad Dorsey 11/23/2023 0931 Admissions is currently reviewing .Caridad Dorsey, 11/23/2023 9:31 AM No bd available until next week. Caridad Dorsey, 11/18/2023 8:34 AM [facility] Pending - Request Sent N/A [address] [facility] [address] [phone] -- Internal Comment last updated by Lior Azul 11/23/2023 1415 Looking for a bed in the [facility] .Caridad Dorsey, 11/23/2023 9:35 AM LVM for admissions.Caridad Dorsey, 11/19/2023 8:17 AM LVM for admissions.Caridad Dorsey, 11/18/2023 8:37 AM [facility] Pending - Request Sent N/A [address] [facility] [address] [phone] -- Internal Comment last updated by Caridad Dorsey 11/23/2023 0937 LVM for admissions .Caridad Dorsey, 11/23/2023 9:37 AM [facility] Declined Current smoking, Bariatric N/A [address] [facility] [address] [phone] -- The [facility] Declined Distance N/A [address] [address] [phone] -- Internal Comment last updated by Lior Azul 11/22/2023 1218 This is too far from where patient lives. Lior Azul, 11/22/2023 12:18 PM Sent e mail to Allie .Caridad Dorsey, 11/22/2023 8:10 AM LVM for admissions .Caridad Dorsey, 11/19/2023 7:44 AM Sent email to Missy.Caridad Dorsey, 11/17/2023 2:24 PM [facility] Declined No Contract with Patient's Insurance Carrier N/A [address] [place] [address] -- [facility] Declined Current smoking, [place] [address] [facility] [address] [phone] -- Internal Comment last updated by Caridad Dorsey 11/18/2023 0831 LVM for admissions.Caridad Dorsey, 11/18/2023 8:31 AM [facility] Declined Bed not available N/A [address] [facility] [address] [phone] -- The [facility] Declined Bed not available N/A [address] [facility] [address] [phone] -- The [facility] Declined Bed not available N/A [address] [facility] [address] [phone] -- Home Medical Care No active coordination exists for this encounter. * Caridad Dorsey - 11/23/2023 9:42 AM CDT Continued Care and Services - Admitted Since 11/10/2023 Destination Service Provider Request Status Selected Services Address Phone Fax Patient Preferred [facility] Pending - Request Sent N/A [address] [facility] [address] -- Internal Comment last updated by Caridad Dorsey 11/23/2023 0931 Admissions is currently reviewing .Caridad Dorsey, 11/23/2023 9:31 AM No bd available until next week. Caridad Dorsey, 11/18/2023 8:34 AM [facility], [facility] Pending - Request Sent N/A [address] [facility] [address] [phone] -- Internal Comment last updated by Caridad Dorsey 11/23/2023 0935 Looking for a bed in the [facility] .Caridad Dorsey, 11/23/2023 9:35 AM LVM for admissions.Caridad Dorsey, 11/19/2023 8:17 AM LVM for admissions.Caridad Dorsey, 11/18/2023 8:37 AM [facility] Pending - Request Sent N/A [address] [facility] [phone] -- [facility] Pending - Request Sent N/A [address] [facility] [address] [phone] -- Internal Comment last updated by Caridad Dorsey 11/23/2023 0937 LVM for admissions .Caridad Dorsey, 11/23/2023 9:37 AM [facility] Declined Current smoking, Bariatric N/A [address] [facility] [address] [phone] -- The [facility] Declined Distance N/A [address] [address] [phone] -- Internal Comment last updated by Lior Azul 11/22/2023 1218 This is too far from where patient lives. Lior Azul, 11/22/2023 12:18 PM Sent e mail to Allie .Caridad Dorsey, 11/22/2023 8:10 AM LVM for admissions .Caridad Dorsey, 11/19/2023 7:44 AM Sent email to Missy.Caridad Dorsey, 11/17/2023 2:24 PM [facility] Declined No Contract with Patient's Insurance Carrier N/A [address] [place] [address] -- [facility] Declined Current smoking, [place]/A [address] [facility] [id number] -- Internal Comment last updated by Caridad Dorsey 11/18/2023 0831 LVM for admissions.Caridad Dorsey, 11/18/2023 8:31 AM [facility] Declined Bed not available N/A [address] [facility] [address] [phone] -- The [facility] Declined Bed not available N/A [address] [facility] [address] [phone] -- Home Medical Care No active coordination [...] Pager: [facility] OT Department Problem: Loss of Galax With ADLs, Risk for Goal: Will complete lower body dressing Description: Patient will complete lower body dressing with Modified Galax (6). Outcome: In progress Goal: Will toilet self Description: Patient will toilet self with Modified Galax (6). Outcome: In progress * Arden Elena [...] gait with or without AD, static/dynamic balance. GRADE TAMPER Appropriate: Yes Arden Elena PTA 11/22/2023 Pager: [facility] PT Dept Problem: Decreased Transfer Skills Goal: Patient will transfer sit to/from stand Description: Patient will transfer sit to/from stand while Heel touch WB on L LE in post-op shoe with (6) Modified Galax in order to mobilize in home by [...] 12:09 PM CDTSummary: DC Planning DC Planning [facility] Minnie, RN - O: [phone] Detention RN is calling her asking her when [...] agrees with sending referrals to SNFs around [place]. He wants CC to let sister know [...] bedtime. -Continue Amlodipine 10mg Daily - Resume GRADE TAMPER losartan 50mg PO Daily when Cr is closer to baseline (1.0) Acute Kidney Injury Monitor urine output and BMP closely. 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 Would give [...] the patient on the date of the television script writer's note. I discussed with the television script writer of the note and agree with their findings and plan documented in the television script writer's note from above. Any revisions by [...] bedtime. -Continue Amlodipine 10mg Daily - Resume GRADE TAMPER losartan 50mg PO Daily when Cr is closer to baseline (1.0) Acute Kidney Injury Monitor urine output and BMP closely. 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 Would give [...] are above goal here (FPG goal <150). GRADE TAMPER lantus 30 units BID, lispro 10 units TID AC, metformin 500mg BID. A1c 6.8% on 07/27/23. Complications include h/o diabetes related infections. Hold GRADE TAMPER metformin while admitted. Continue statin. 11/12 got 25u lantus (<0.2/kg) and 35u aspart. Likely needs increase in insulin dosing but also use caution with impaired renal clearance / worsening renal function and this can contribute to hypoglycemia. Serum glucose levels are slightly improved on GRADE TAMPER regimen of 30 U daily Lantus. Serum [...] by facility provider. Paranoid schizophrenia - restarted GRADE TAMPER meds (escitalopram 20mg qhs, trazodone 50mg qhs, [...] outpatient on 11/25 or 2 Resume patient's GRADE TAMPER losartan 50mg PO daily when Cr is [...] changes can be done by his current custodial; I encouraged him to discuss that with his primary team and case briefer. Amenable to plan, looking forward to leaving [...] Patient follows with Dr Hayden in [facility] and would prefer to follow up with him upon discharge. We are happy to schedule anappointment with patient if he wishes to follow up with our team. Please page it consulting director resident with questions. Interval History Patient was [...] and BMP closely. 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 Would give [...] are above goal here (FPG goal <150). GRADE TAMPER lantus 30 units BID, lispro 10 units TID AC, metformin 500mg BID. A1c 6.8% on 07/27/23. Complications include h/o diabetes related infections. Hold GRADE TAMPER metformin while admitted. Continue statin. 11/12 got 25u lantus (<0.2/kg) and 35u aspart. Likely needs increase in insulin dosing but also use caution with impaired renal clearance / worsening renal function and this can contribute to hypoglycemia. Serum glucose levels are slightly improved on GRADE TAMPER regimen of 30 U daily Lantus. Serum glucose levels better controlled today and more consistent in the 126 - 165 range. Continue current dosing for now with monitoring of serum glucose levels. Paranoid schizophrenia - restarted GRADE TAMPER meds (escitalopram 20mg qhs, trazodone 50mg qhs, prazosin 1mg qhs). Given paliperidone (Invega) IM on 11/12/23 (due every 4 weeks for schizophrenia) Tobacco use - offer nicotine patches, gum, lozenges while inpatient H/o TBI Obesity RECOMMENDATIONS 11/15/23 Continue Lantus to 30 U qd Continuing amlodipine, monitoring BP to determine if second agent needed with recent improvement Resume patient's GRADE TAMPER losartan 50mg PO daily when Cr is closer to baseline (likely ~1.0) Strict I/O, monitor UOP. Avoid nephrotoxins (IV contrast, NSAIDs), renal dosing of meds Medicine service will sign off tomorrow 11/20 if clinical stability/improvement continues. Please page Hospitalist Consult A on [employer] for any further issues or questions. SUBJECTIVE/Events [...] 11/19. Labs reviewed Scar Leyva MD [facility] * Scar Leyva MD - [...] are above goal here (FPG goal <150). GRADE TAMPER lantus 30 units BID, lispro 10 units TID AC, metformin 500mg BID. A1c 6.8% on 07/27/23. Complications include h/o diabetes related infections. Hold GRADE TAMPER metformin while admitted. Continue statin. 11/12 got 25u lantus (<0.2/kg) and 35u aspart. Likely needs increase in insulin dosing but also use caution with impaired renal clearance / worsening renal function and this can contribute to hypoglycemia. Serum glucose levels are slightly improved on GRADE TAMPER regimen of 30 U daily Lantus. One reading of 69 yesterday - unclear if patient had any symptoms. Continue current dosing for now with monitoring of serum glucose levels. Paranoid schizophrenia - restarted GRADE TAMPER meds (escitalopram 20mg qhs, trazodone 50mg qhs, prazosin 1mg qhs). Given paliperidone (Invega) IM on 11/12/23 (due every 4 weeks for schizophrenia) Tobacco use - offer nicotine patches, gum, lozenges while inpatient H/o TBI Obesity RECOMMENDATIONS 11/15/23 Continue Lantus to 30 U qd Continuing amlodipine, monitoring BP to determine if second agent needed with recent improvement Resume patient's GRADE TAMPER losartan 50mg PO daily when Cr is closer to baseline (likely ~1.0) Strict I/O, monitor UOP. Avoid nephrotoxins (IV contrast, NSAIDs), renal dosing of meds Medicine will continue to follow. Please page Hospitalist Consult A on [employer] for any further issues or questions. SUBJECTIVE/Events [...] 11/18. Labs reviewed Scar Leyva MD [facility] * Kenrick Fisher Chi, PT - 11/19/2023 1:21 PM CDT Physical Therapy Patient not seen today d/t prioritisation/time constraints. Kenrick Fisher, PT License #[id number] PT Tel #: [phone] On [employer] * Nicola Vasquez MD - 11/19/2023 11:54 [...] 2/2 uncontrolled Td2m. 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 male pmhx of T2DM with [facility] s/p [facility]&D x 2, [...] 1 of 2 Imaging results: Reviewed in [facility] Gulshan José MD ID fellow, [...] RN - 11/19/2023 10:39 AM CDT 11/19/23 [facility] Rapid Rounds Attendance Charge nurse;senior catering sales manager;ironworker wire fence erector Expected Discharge Disposition SNF (TCU) Today we [...] mgmt/ADL: 23 minutes Chayo Townsend OTR/L Pager: [email or web address] OT Department Problem: Loss of Galax With ADLs, Risk for Goal: Will complete lower body dressing Description: Patient will complete lower body dressing with Modified Galax (6). Outcome: In progress Goal: Will toilet self Description: Patient will toilet self with Modified Galax (6). Outcome: In progress * Paula Black [...] Patient follows with Dr Hayden in [facility] and would prefer to follow up with him upon discharge. We are happy to schedule anappointment with patient if he wishes to follow up with our team. Please page it consulting director resident with questions. Interval History Patient was [...] Pager: Lisa OT Department Problem: Loss of Galax With ADLs, Risk for Goal: Will complete lower body dressing Description: Patient will complete lower body dressing with Modified Galax (6). Outcome: In progress Goal: Will toilet self Description: Patient will toilet self with Modified Galax (6). Outcome: In progress * Kenrick Fisher Chi, PT - 11/18/2023 3:23 PM CDT Problem: Decreased Transfer Skills Goal: Patient will transfer sit to/from stand Description: Patient will transfer sit to/from stand while Heel touch WB on L LE in post-op shoe with (6) Modified Galax in order to mobilize in home by [...] up. Reconfirmed that he lives in an [facility]- a 1 floor building. Has his own room w a toilet inside. He shares bathing facilities wother residents in the house. He eats his meals and snacks in the dining room. He has NO stairs to negotiate. O:Porter Baggage Used: None needed Mental Status Mental Status: [...] remain heel touch WB on L LE. GRADE TAMPER Appropriate: Yes Kenrick Fisher, PT 11/18/2023 Pager: [...] are above goal here (FPG goal <150). GRADE TAMPER lantus 30 units BID, lispro 10 units TID AC, metformin 500mg BID. A1c 6.8% on 07/27/23. Complications include h/o diabetes related infections. Hold GRADE TAMPER metformin while admitted. Continue statin. 11/12 got 25u lantus (<0.2/kg) and 35u aspart. Likely needs increase in insulin dosing but also use caution with impaired renal clearance / worsening renal function and this can contribute to hypoglycemia. Serum glucose levels are slightly improved today with increase in Lantus to 28 U; increasing today to GRADE TAMPER dose of 30 U Lantus daily. Paranoid schizophrenia - restarted GRADE TAMPER meds (escitalopram 20mg qhs, trazodone 50mg qhs, prazosin 1mg qhs). Given paliperidone (Invega) IM on 11/12/23 (due every 4 weeks for schizophrenia) Tobacco use - offer nicotine patches, gum, lozenges while inpatient H/o TBI Obesity RECOMMENDATIONS 11/15/23 Increased Lantus to 30 U qd Continuing amlodipine, carvedilol discontinued as patient noted some dizziness and BP now near goal. Resume patient's GRADE TAMPER losartan 50mg PO daily when Cr is closer to baseline (likely ~1.0) Strict I/O, monitor UOP. Avoid nephrotoxins (IV contrast, NSAIDs), renal dosing of meds Medicine will continue to follow. Please page Hospitalist Consult A on teletaskrq for any further issues or questions. SUBJECTIVE/Events of Past 24 Hours: Hospital Day: 8 Mr Low feels good today; more relaxed. Pain controlled. Hoping for discharge soon; he's curiousif his sister might be able to take him home tomorrow, or potentially to a facility (?[facility]?) for extra cares and assistance OBJECTIVE: [...] 11/17. Labs reviewed Scar Leyva MD [facility] Medicine * Jabari Colby RN - [...] Phone Fax Patient Preferred [facility] Pending - Request Sent N/A [address] [address] [phone] -- Internal Comment last updated by Caridad Dorsey 11/19/2023 0745 LVM for admissions .Caridad Dorsey, 11/19/2023 7:44 AM Sent email to Missy.Caridad Dorsey, 11/17/2023 2:24 PM [facility], [facility] Pending - Request Sent N/A [address] [facility] [address] [phone] -- Internal Comment last updated by Caridad Dorsey 11/19/2023 0818 LVM for admissions.Caridad Dorsey, 11/19/2023 8:17 AM LVM for admissions.Caridad Dorsey, 11/18/2023 8:37 AM [facility] Declined N/A [address] [facility] [id number] -- [facility] Declined No Contract with Patient's Insurance Carrier N/A [address] [place] [id number] [phone] -- [facility] Declined Current smoking, Acuity too high N/A [id number] [facility] [address] [phone] -- Internal Comment last updated by Caridad Dorsey 11/18/2023 0831 LVM for admissions.Caridad Dorsey, 11/18/2023 8:31 AM [facility] Declined Bed not available N/A [address] [facility] [id number] -- Internal Comment last updated by Caridad Dorsey 11/18/2023 0834 No bd available until next week. Caridad Dorsey, 11/18/2023 8:34 AM [facility] Declined Bed not available N/A [address] [facility] [address] [phone] -- Home Medical Care No active coordination exists for this encounter. 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 male pmhx of T2DM with prior right toe amputations [facility], s/p I&D x 2, [...] 11/17/[address] Mullen-operative note available in [facility] Seen this a.m. and was [...] 1 of 2 Imaging results: Reviewed in [facility] Gulshan José MD, 11/18/2023 8:26 [...] Patient follows with Dr Hayden in [facility] and would prefer to follow up with him upon discharge. We are happy to schedule anappointment with patient if he wishes to follow up with our team. Please page it consulting director resident with questions. Patient was discussed with it consulting director staff, Interval History Patient was seen and [...] Abdomen soft, non-tender, non-distended. Labs / Imaging: [facility] Lab Results Component Value Date/Time [...] urine output closely. 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 Would give [...] renal dysfunction, though UOP is acceptable. Holding GRADE TAMPER losartan 50mg daily. Started amlodipine 10 mg [...] are above goal here (FPG goal <150). GRADE TAMPER lantus 30 units BID, lispro 10 units TID AC, metformin 500mg BID. A1c 6.8% on 07/27/23. Complications include h/o diabetes related infections. Hold GRADE TAMPER metformin while admitted. Continue statin. 11/12 got [...] and diet improve. Paranoid schizophrenia - restarted GRADE TAMPER meds (escitalopram 20mg qhs, trazodone 50mg qhs, prazosin 1mg qhs). Given paliperidone (Invega) IM on 11/12/23 (due every 4 weeks for schizophrenia) Tobacco use - offer nicotine patches, gum, lozenges while inpatient H/o TBI Obesity RECOMMENDATIONS 11/15/23 Continue Lantus 28 U daily for now; may need to continue titration as diet and renal function improve Began carvedilol and amlodipine as above Resume patient's GRADE TAMPER losartan 50mg PO daily when Cr is closer to baseline (likely ~1.0) Switching to IV PRN hydralazine for more aggressive BP control Strict I/O, monitor UOP. Avoid nephrotoxins (IV contrast, NSAIDs), renal dosing of meds Medicine will continue to follow. Please page Hospitalist Consult A on Vuze for any further issues or questions. SUBJECTIVE/Events [...] check back tomorrow. Shannan Partida OTR/Brian Pager: [phone] * Mabel Mathews RN - 11/17/2023 11:27 AM CDT TRANSFER IN NOTE D: Patient transferred in to STNU 2 from PACU at 1100. Patient condition on arrival: Stable, a/o X4, VSS, on RA, . Patient Belonging 11/10/2023 1440 Reason for Inventory: ED/APS Admission Patient or family informed of Patient Valuables and Belongings Policy (#[id number]): Due to patient condition, [facility] staff will inventory and secure patient valuables [...] CDT 11/17/23 103 Rapid Rounds Attendance Physician;Charge nurse;senior catering sales manager;ironworker wire fence erector;Bedside nurse Expected Discharge Disposition SNF (TCU for wound care) Today we still await: Procedure (Comment) (toe amputation today) Case Management Discharge Milestones Documentation CM Assessment Completed? Yes Patient/Family agree w/DC plan? Yes Transportation Plan WC/Taxi/Stretcher Prior Auth/Pre-Admit Screen (!) Not completed 11/17/231033 Rapid Rounds Attendance Physician;Charge nurse;senior catering sales manager;ironworker wire fence erector;Bedside nurse Expected Discharge Disposition SNF (TCU for wound care) Today we still await: Procedure (Comment) (toe amputation today) Case Management Discharge Milestones Documentation CM Assessment Completed? Yes Patient/Family agree w/DC plan? Yes Transportation Plan WC/Taxi/Stretcher Prior Auth/Pre-Admit Screen (!) Not completed Pt will DC to TCU, as his custodial cannot do the daily dressing changes to [...] Patient follows with Dr Hayden in [facility] CHIEF COMPLAINT: Immediate postop HISTORY [...] urine output closely. 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 Would give [...] Fisher, PT License #[id number] PT Tel #: [phone] On [employer] * Nico Hogue MD - 11/16/2023 9:49 [...] Actinomyces species Medicine consult (11/14): Resume patient's GRADE TAMPER losartan 50mg PO daily when Cr is [...] urine output closely. 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 Would give [...] are above goal here (FPG goal <150). GRADE TAMPER lantus 30 units BID, lispro 10 units TID AC, metformin 500mg BID. A1c 6.8% on 07/27/23. Complications include h/o diabetes related infections. Hold GRADE TAMPER metformin while admitted. Continue statin. 11/12 got [...] renal dysfunction, though UOP is acceptable. Holding GRADE TAMPER losartan 50mg daily. Agree with prn hydralazine but would changeto PO. Could start new agent (such as amlodipine) but patient should ultimately resume ARB once renal function is improved Paranoid schizophrenia - restarted GRADE TAMPER meds (escitalopram 20mg qhs, trazodone 50mg qhs, prazosin 1mg qhs). Given paliperidone (Invega) IM on 11/12/23 (due every 4 weeks for schizophrenia) Tobacco use - offer nicotine patches, gum, lozenges while inpatient H/o TBI Obesity RECOMMENDATIONS 11/15/23 Continue Lantus 28 U daily for now; may need to continue titration as diet and Resume patient's GRADE TAMPER losartan 50mg PO daily when Cr is [...] follow. Please page Hospitalist Consult A on Vuze for any further issues or questions. SUBJECTIVE/Events [...] provide clear picture of assistance available at [facility]- however, per chart review only receives assistance [...] mgmt/ADL: 28 minutes Chayo Townsend OTR/L Pager: [employer] OT Department Problem: Loss of Galax With ADLs, Risk for Goal: Will complete lower body dressing Description: Patient will complete lower body dressing with Modified Galax (6). 11/15/2023 1400 by Chayo Townsend OTR/L Outcome: In progress 11/15/2023 1357 by Chayo Townsend OTR/L Outcome: In progress Goal: Will toilet self Description: Patient will toilet self with Modified Galax (6). 11/15/2023 1400 by Chayo Townsend OTR/L Outcome: In progress 11/15/2023 1357 by Chayo Townsend OTR/L Outcome: In progress * Kenrick Fisher Chi, PT - 11/15/2023 11:23 AM CDT Images from the original note were not included. Problem: Decreased Transfer Skills Goal: Patient will transfer sit to/from stand Description: Patient will transfer sit to/from stand with (6) Modified Galax in order to mobilize in home by 11/28/23. Outcome: In progress Problem: Decreased Ambulatory Skills Goal: Improve gait Description: Ambulate 100 meters using No assistive devices with (6) Modified Galax in orderto mobilize in home and community [...] transfer supine to/from sit with (6) Modified Galax in order to mobilize in/out of bed by 11/28/23. Outcome: Met Physical Therapy Progress Note PT Discharge Recommendations Discharge Recommendations: Safety risk for discharge home today. Barriers to discharge to home/community: Insufficient activity tolerance;Pain;Caregiver availability not yet confirmed. Would be good if someone from the treatment team calls his [facility] to see how much help he can [...] kind of help he gets/can get from [facility] staff and if he needs to do [...] vs try no AD. Try stairs eventually? GRADE TAMPER Appropriate: Yes Kenrick Fisher, PT 11/15/2023 Pager: [...] Actinomyces species Medicine consult (11/14): Resume patient's GRADE TAMPER losartan 50mg PO daily when Cr is [...] urine output closely. 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 Would give [...] Crawford LGSW - 11/15/2023 9:39 AM CDT Stablehand Progress Note Spoke to SABINE Hartman at [facility], where patient resides. Informed her pt will likely be ready for discharge towards the end of the week per MDR. Asked if they are able to assist with daily wound care. Unfortunately facility cannot help with this. The facility helps with med management, meals, housekeeping, and laundry. May have to explore options for home health or TCU for woundcare. [facility] - [phone] opt 3. Dominga Crawford LGSW, 11/15/2023 2:59 [...] pt may be able to return to custodial given participation with PT on 11/13 but [...] are above goal here (FPG goal <150). GRADE TAMPER lantus 30 units BID, lispro 10 units TID AC, metformin 500mg BID. A1c 6.8% on 07/27/23. Complications include h/o diabetes related infections. Hold GRADE TAMPER metformin while admitted. Continue statin. 11/12 got 25u lantus (<0.2/kg) and 35u aspart. Likely needs increase in insulin dosing but also use caution with impaired renal clearance / worsening renal function and this can contribute to hypoglycemia. HTN - above goal overnight. ARB is being held. Also may be hypervolemic given renal dysfunction, though UOP is acceptable. Holding GRADE TAMPER losartan 50mg daily. Agree with prn hydralazine but would changeto PO. Could start new agent (such as amlodipine) but patient should ultimately resume ARB once renal function is improved Paranoid schizophrenia - restarted GRADE TAMPER meds (escitalopram 20mg qhs, trazodone 50mg qhs, prazosin 1mg qhs). Given paliperidone (Invega) IM on 11/12/23 (due every 4 weeks for schizophrenia) Tobacco use - offer nicotine patches, gum, lozenges while inpatient H/o TBI Obesity RECOMMENDATIONS 11/15/23 Increase lantus to 28 units q24h Resume patient's GRADE TAMPER losartan 50mg PO daily when Cr is [...] - 11/14/2023 2:55 PM CDT SURGERY PROGRESS NOTE--CREDIT CHARGE AUTHORIZER Matt Low : 1980 Sex: male SIGNIFICANT [...] urine output closely. 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 Would give [...] recent) Autumn Lamar PharmD 11/14/2023 07:56 Pager: (TelPingTune) * Shani Shaw MD - 11/14/2023 7:18 AM CDT MEDICINE CONSULT FOLLOW-UP- STAFF Matt Low : 1980 Sex: male Patient Summary: Matt Low is a 43 y.o. male with PMH of T2DM, prior TMA or right foot, HTN, paranoid schizophrenia, situs inversus, tobacco use, obesity, admitted on 11/10/2023 as a transfer from [facility] for emergent surgical debridement for demar's gangrene. [...] are above goal here (FPG goal <150). GRADE TAMPER lantus 30 units BID, lispro 10 units TID AC, metformin 500mg BID. A1c 6.8% on 07/27/23. Complications include h/o diabetes related infections. Hold GRADE TAMPER metformin while admitted. Continue statin. 11/12 got 25u lantus (<0.2/kg) and 35u aspart. Likely needs increase in insulin dosing but also use caution with impaired renal clearance / worsening renal function and this can contribute to hypoglycemia. HTN - above goal overnight. ARB is being held. Also may be hypervolemic given renal dysfunction, though UOP is acceptable. Holding GRADE TAMPER losartan 50mg daily. Agree with prn hydralazine but would changeto PO. Could start new agent (such as amlodipine) but patient should ultimately resume ARB once renal function is improved Paranoid schizophrenia - restarted GRADE TAMPER meds (escitalopram 20mg qhs, trazodone 50mg qhs, [...] Lamar PharmD 11/13/2023 15:25 Pager: (Telmedia) * iNco Hogue MD - 11/13/2023 8:25 AM CDT [...] species 11/10/2023 1713 11/12/2023 1417 ANAEROBE CULTURE [[id number]] (Abnormal) Tissue from Perineal 2:Perineal tissue Preliminary result Component Value Preliminary Report Positive Culture Many mixed anaerobes present. Culture in progress. POS 11/10/2023 17111/12/2023 1441 TISSUE CULTURE:INCLUDES GRAM STAIN [[id number]] (Abnormal) Tissue from Perineal 2:Perineal tissue Preliminary [...] electronically reported to and acknowledged by: Fermin sOborn MD for Burn on 11/10/2023 18:43:03 by Silver Luna MLS Rare WBC's seen. Many gram positive cocci in clusters. POS 11/10/2023 17111/12/2023 1416 ANAEROBE CULTURE [[id number]] (Abnormal) Swab from Perineal 1: Perineal tissue swab Preliminary result Component Value Preliminary Report Moderate Anaerococcus vaginalis isolated. Culture in progress. POS Organism ANAEROCOCCUS VAGINALIS POS 11/10/2023 17111/12/2023 1534 WOUND CULTURE:GRAM STAIN OPTIONAL [[id number]] (Abnormal) Swab from Perineal 1: Perineal tissue [...] NPO with excellent blood sugarcontrol. 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 Would give [...] RECOMMENDATIONS: Demar's Gangrene Necrotizing fasciitis Transferred from [facility] for scrotal swelling, pain, concern for [...] NPO with excellent blood sugarcontrol. 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 Would give dose here if due and if available on formulary. Tobacco use - offer nicotine patches, gum, lozenges while inpatient - cessation counseling as able (pt unable to engage today) H/o TBI Obesity PLAN: Neuro/Pain Control: Multimodal Scheduled: Tylenol, Gabapentin, cyclobenzaprine PRN: Hydromorphone CV: Monitor blood pressure and pulse and intervene as needed. Restart canal boat captain rosuvastatin 10mg qHS Pulm: Encourage [...] Type 2 DM with neuropathy, retinopathy - GRADE TAMPER lantus 30 units BID, lispro 10 units TID AC, [id number] BID. A1c 6.8% on 07/27/23. Complications include h/o diabetes related infections. Hold GRADE TAMPER metformin while admitted. Continue statin. HTN - mostly at goal off antihypertensives. Holding GRADE TAMPER losartan 50mg daily Paranoid schizophrenia - restarted GRADE TAMPER meds (escitalopram 20mg qhs, trazodone 50mg qhs, [...] follow. Please page Hospitalist Consult A on Vuze for any further issues or questions. SUBJECTIVE/Events [...] - 11/12/2023 1:00 PM CDT 11/12/23 1254 Porter Baggage Used. Porter Baggage Used None needed (interview conducted with [facility] staff) Social Information Living Situation snf Facility Admitted From hospital (Admitted from [facility]) Name of facility [facility] Patient medically appropriate to transfer back to outside hospital? No Patient Identified Support System [facility] staff Services Receiving DIRECTOR OF RADIO SERVICES / Skilled Services;Case Management;Waivered services (see comment) Complex Medical Needs Other (see comment) Transportation Used for Discharge wound care Safety Concerns None Behavioral Health Concerns None Patient Family Goals Patient's Discharge Goal back to [facility] Family's Discharge Goal no family Plan/Interventions Expected Discharge Disposition Detention Was Patient Choice Provided? No Who was Choice Provided to? Other (comment) (pt will return to GRADE [facility]AM[facility] facility when medically stable) Patient Information Verification Verified demographic information, including SSN, Next of Kin, and Guardianship Yes Verified PCP Yes If post-acute placement is needed, have vaccination status needs been addressed? Yes Pt admitted from [facility] after transfer to there from custodial for treatment of Demar's gangrene of perineal area * Nico Hogue MD - 11/12/2023 8:02 AM CDT SURGERY PROGRESS NOTE--CREDIT CHARGE AUTHORIZER Matt Low : 1980 Sex: male SIGNIFICANT [...] Comments: RN: Gloria Velez RN Extension #: [phone] * Robert Kruse MDIV - 11/11/2023 1:43 PM CDT SPIRITUAL CARE VISIT SUMMARY Matt Low : 1980 Sex: male LOS: 1 day Reason for visit: Referral Assessment: Pt/family uncertain/anxious/frustrated;Pt/family coping/relieved Intervention: Compassionate support;Facilitate communication;Lead/support spiritual rituals Outcome: Situation assessed;Gratitude expressed;Ritual provided Notes: I met with Matt at bedside during rounds. Matt shared that he wanted a prayer for healing and yarsani of his health which I offered as requested. He had no other support needs at this time. Plan: Spiritual Care Team is available to support patient and family as needed via number [phone]. Robert Kruse MDIV, 11/11/2023 1:43 PM Number: [phone] * Hannah Boland RT - 11/11/2023 12:40 [...] male D: Matt Low was admitted to [facility] from PACU at 0600 for [place] [...] informed of Patient Valuables and Belongings Policy (#[id number]): Due to patient condition, [facility] staff will inventory and secure patient valuables Items Needing Securement: Cell phone Cell Phone Secured?: Yes Cell Phone Visually Damaged: Yes Patient Belongings: Clothing Clothing Comments: shirt, 1 shoe, 1 sock, * Gracia Tirado MDIV - 11/10/2023 3:26 PM CDT Cytotechnologist Supervisor Stabilization Room Note Matt Low : 1980 Sex: male LOS: 0 days Initial Description: Matt Low with history of gangrene. Pt was responding appropriately to questions. Patient and Family Context: No family present. Pt came from a facility in [place]. Plan: Spiritual Care Team is available to support patient and family as needed via number [phone]. Gracia Tirado MDIV, 11/10/2023 3:27 PM Number: [phone] * Camilla Treviño PharmD - 11/10/2023 2:38 [...] for 2 days. He was transferred from [place] for Demar's gangrene. He has a history of T2DM on 10u long acting insulin three times daily, situs inversus, and TBI several years ago and lives in a custodial. CT at OSH showed gas in perineal [...] the patient on the date of the television script writer's note. I discussed with the television script writer of the note and agree with their findings and plan documented in the television script writer's note from above. Any revisions by [...] medications. Assessment: Pertinent points to note: -- GRADE TAMPER losartan, metformin and ibuprofen all discontinued due to ongoing acute kidney injury. I have reviewed the patient's medications for discharge and have discussed the necessary changes with the provider. Changes have been made and medication list updated and complete. Please page with any questions. Gala Salinas PharmD 11/24/2023 14:22 For questions regarding this note, please contact pharmacist on service at PharmD [facility] ([employer]) [phone]. If no response within needed timeframe, please contact central pharmacy via phone at [phone]. Planned discharge medications are: Medication List Medications [...] 2 Diabetes Reduced from twice daily dosing GRADE TAMPER, per Medicine recommendations. insulin LISPRO 100 UNIT/ML Kwikpen Commonly known as: HumaLOG KwikPen Inject 6 UNITS subcutaneously 3 times daily before meals. Reduced from 10 units per dose GRADE TAMPER, per Medicine recommendations. Invega Sustenna 156 MG/ML [...] follow. Patient follows with Dr Hayden in [place] GRADE TAMPER Please page it consulting director resident with questions. Patient was seen with it consulting director staff, Dr. Black CHIEF COMPLAINT: Left hallux wound HISTORY OF PRESENT ILLNESS: Matt Low is a 43 y.o. male presenting with left hallux necrosis. Patient initially presented to [facility] for concern for foreigners gangrene on 11-09. [...] 74.09 Activity Intolerance Z 73.89 PRECAUTIONS [place] Baggage Used: None needed ACTIVITY Up ad Celia [...] Type 2 DM with neuropathy, retinopathy - GRADE TAMPER lantus 30 units BID, lispro 10 units TID AC, [id number] BID. A1c 6.8% on 07/27/23. Complications include h/o diabetes related infections. Hold GRADE TAMPER metformin while admitted. Continue statin. HTN - mostly at goal off antihypertensives. Holding GRADE TAMPER losartan 50mg daily Paranoid schizophrenia - restarted GRADE TAMPER meds (escitalopram 20mg qhs, trazodone 50mg qhs, prazosin 1mg qhs). Given paliperidone (Invega) IM on 11/12/23 (due every 4 weeks for schizophrenia) Tobacco use - offer nicotine patches, gum, lozenges while inpatient Medical History No past medical history on file. SOCIAL HISTORY Information gathered from: Patient Home: custodial in [place] Prior level of function: independent Baseline Ambulation: [...] Status: Oriented X 3, Alert, and Cooperative, [facility] Follows Direction: Yes, 1step OBJECTIVE Initial [...] and previous notes. A&Ox3, but thought at [facility] in [facility]. Anticipate pt will be able to d/c [...] when ready, stairs as able, standing balance. GRADE TAMPER Appropriate: Yes Participated in goal setting and treatment planning: Patient Agrees with goals and treatment plan: Patient - Yes. Che Garcia, PT 11/14/2023 Pager: [email or web address] PT Department * Guru Franco MD - 11/13/2023 1:14 PM CDTAssociated Order(s): CONSULT TO INFECTIOUS DISEASE ID-2 NEW CONSULT NOTE Matt Low 1980 male [id number] REASON FOR CONSULT: I was asked to see Matt Low by Zac Churchill regarding Demar's gangrene. ASSESSMENT: 43 y.o. 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 At baseline pt from custodial. Pt unable to provide any social history [...] Eval: 18 minutes Therapist: EDWIN Alvarado/Brian Pager: [email or web address] Occupational Therapy Department * Sophie Barajas MD - 11/12/2023 10:07 AM CDTAssociated Order(s): CONSULT TO MEDICINE SERVICES INTERNAL MEDICINE CONSULT- STAFF Matt Low : 1980 Sex: male Reason for Consult: Diabetes management, antibiotic selection IMPRESSION AND RECOMMENDATIONS: Demar's Gangrene Necrotizing fasciitis Transferred from [facility] for scrotal swelling, pain, concern for [...] NPO with excellent blood sugarcontrol. 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 Would give [...] long enough to participate indiscussion. Transferred from [facility] for scrotal pain and swelling, concern [...] including pre-visit review of separately obtained history, [id number] interaction performing medically appropriate physical exam, patientcounseling/education, [...] PM CDT Pt BIBA as transfer from [place]. 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 Pt given Ertapenem 1gm and Insulin 10 units GRADE TAMPER. BS 400 at outside hospital. Pt is [...] Physical Therapy Inpatient Discharge Summary Zenalaurie Daryabailey [id number] PT Discharge Recommendations DC Recommendations: Post-acute placement [...] LE in post-op shoe with (6) Modified [place] in order to mobilize in home by [...] Therapist: Kenrick Fisher PT Date: 11/24/2023 Pager: [email or web address] PT Department * Discharge non-MD/non-MIRI Summaries - Lior Azul - 11/25/2023 7:36 AM CDT Summary: DC to SNF Care Coordination Discharge Note Expected DC Date: 11/25/23 Expected DC Time: 13h30 Final Discharge Destination: Selected Continued Care - Admitted Since 11/10/2023 Destination Coordination complete. Service Provider Selected Services Address Phone Fax Patient Preferred [facility] [address] [facility] [phone] -- Summary: Insurance approved Patient has been accepted to continue rehabing at the aforementioned post acute facility. Patient is on board with plan. CC spoke with patient in person in the room Clinical Interviewer also confirmed with Minnie REGALADO at . Also, DC summary faxed to [phone], via [facility]. WC ride has been ordered. DESIGN PROJECT MANAGER ([employer] Selector Compacting Machine Operator/Tender) will schedule. Check [id number] for confirmation. Medical team is aware. They will work writing DC orders. CC sent DC orders to SNF by [facility] fax. Medical team is aware any controlled substances must be printed and signed to be sent in physical form to the TCU. PLEASE MAKE SURE RX IS COMPLETE. MAKE SURE QUANTITY IS ADDED. Also, PSC/MEDIA INTERN/RN will fax it to TCU olga (this is required so in case of pain during transport, pain control can be addressed) Bedside nurse: please confirm this is done. A [employer] thread has been started. CC will continue to follow until DC. Please use [employer] for any further questions. * Nursing Assessment [...] Townsend, OTR/L - 11/24/2023 12:59 PM CDT [facility] Occupational Therapy Discharge Summary Stephanie [...] subacute rehab. Patient Name: Stephanie Low MR#: [id number] Date of : 1980 Age: 43 y.o. [...] (11/13/231099) Patient is living in a/an : custodial (11/13/231099) Prior Level of Function (GRADE TAMPER): ADLs/IADLs: Received assistance from staff at residence [...] RN - 11/23/2023 4:39 PM CDT Per LOG ROPER no longer meets IP criteria, documentation in [...] Toe Head to Toe Assessment Shift Summary [id number] Pt is a/o X4 and can make [...] Cardiac Assessment Within Defined Limits except for: Enchilada Maker - remote telemetry Respiratory Within defined limits [...] denies suicidalideation. * Cross Cover - Nico Houge MD - 11/18/2023 2:14 PM CDT Team [...] Limits except for: Heart sounds: S1, S2 Enchilada Maker - remote telemetry Comments: Consistently sustaining SBP [...] Toe Head to Toe Assessment Shift Summary [id number] Pt is a/o X4 and can make [...] Cardiac Assessment Within Defined Limits except for: Enchilada Maker - remote telemetry Respiratory Within defined limits [...] Patient to the OR at 0800. This television script writer called to notify ELECTRICAL WORKERclinical staff educator of hypertension. Pt had left the room prior to [facility] notifying this television script writer of BP of 222/101. Vitals: 11/17/23 [...] wants to go outside to smoke, and television script writer encouraged the patient not to go [...] Cardiac Assessment Within Defined Limits except for: Enchilada Maker - remote telemetry Respiratory Assessment Within Defined [...] Cardiac Assessment Within Defined Limits except for: Enchilada Maker - remote telemetry Respiratory Assessment Within Defined [...] Defined Limits except for: Chest Pain: No Enchilada Maker - remote telemetry Pacemaker: Pacemaker: No Respiratory [...] Cardiac Assessment Within Defined Limits except for: Enchilada Maker - remote telemetry Comments: NSR Respiratory Within [...] Cardiac Assessment Within Defined Limits except for: Enchilada Maker - remote telemetry Respiratory Assessment Within Defined [...] Cardiac: Assessment Within Defined Limits except for: Enchilada Maker - remote telemetry Respiratory: Assessment Within Defined [...] Note - PGY-1 Matt Low 43 y.o. [id number] Paged at 03:34 on 11/14/23 for elevated [...] for SBP > 180 - Potentially resume GRADE TAMPER losartan per primary team in the AM [...] Cardiac Assessment Within Defined Limits except for: Enchilada Maker - remote telemetry Respiratory Assessment Within Defined [...] Cardiac Assessment Within Defined Limits except for: Enchilada Maker - remote telemetry Pacemaker: Pacemaker: No Respiratory [...] Cardiac Assessment Within Defined Limits except for: Enchilada Maker - remote telemetry Respiratory Assessment Within Defined [...] Cardiac Assessment Within Defined Limits except for: Enchilada Maker - remote telemetry Respiratory Assessment Within Defined [...] Cardiac Assessment Within Defined Limits except for: Enchilada Maker - remote telemetry Respiratory Assessment Within Defined [...] at time of review in ED - canal boat captain abx administered * ED Stabilization [...] the stabilization room as a transfer from [place] for Demar's gangrene. 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 2 days ago he noticed pain in his perineum, it has gotten worse over the past several days. His girlfriend urged him to go to the hospital today and the physicians at [place] were concerned for Demar'sgangrene and transferred him [...] CRP 30, procal 0.83, WBC 20 at [place]. We will draw an ESR and our [...] POC Glucose 140(H) 70 - 100 mg/dL [facility] - POINT OF CARE Blood 11/25/2023 6:03 AM CDT Jessica Grullon MD LABORATORY [facility] [address] [place] [address], [place] * (ABNORMAL) POC GLUCOSE (11/24/2023 8:47 PM CDT) POC Glucose 156(H) 70 - 100 mg/dL [facility] POINT OF CARE Blood 11/24/2023 8:47 PM CDT Jessica Grullon MD LABORATORY Performing Organization Address City/[facility]/ZIP Co de Phone Number [facility] [address] [place] [address], [place] * (ABNORMAL) POC GLUCOSE (11/24/2023 4:56 PM CDT) POC Glucose 177(H) 70 - 100 mg/dL [facility] Blood 11/24/2023 4:56 PM CDT Jessica Grullon MD LABORATORY Performing Organization Address City/[facility] Co de Phone Number [facility] [address] [place] [address], [place] * (ABNORMAL) POC GLUCOSE (11/24/2023 11:22 AM CDT) POC Glucose 146(H) 70 - 100 mg/dL [facility] POINT OF CARE Blood 11/24/2023 11:2 2 AM CDT Jessica Grullon MD LABORATORY Performing Organization Address City/[facility]/ZIP Co de Phone Number [facility] [address] [place] [address], [place] * (ABNORMAL) POC GLUCOSE (11/24/2023 6:03 AM CDT) POC Glucose 147(H) 70 - 100 mg/dL [facility] - POINT OF CARE Blood 11/24/2023 6:03 AM CDT Jessica Grullon MD LABORATORY [facility] [address] [place] [address], [place] * (ABNORMAL) POC GLUCOSE (11/23/2023 7:52 PM CDT) POC Glucose 160(H) 70 - 100 mg/dL [facility] Blood 11/23/2023 7:52 PM CDT Jessica Grullon MD LABORATORY Performing Organization Address City/[facility] Co de Phone Number [facility] [address] [place] [address], [place] * (ABNORMAL) POC GLUCOSE (11/23/2023 4:18 PM CDT) POC Glucose 156(H) 70 - 100 mg/dL [facility] Blood 11/23/2023 4:18 PM CDT Jessica Grullon MD LABORATORY Performing Organization Address City/[facility] Co de Phone Number [facility] [address] [place] [address], [place] * (ABNORMAL) POC GLUCOSE (11/23/2023 11:13 AM CDT) POC Glucose 182(H) 70 - 100 mg/dL [facility] Blood 11/23/2023 11:1 3 AM CDT Jessica Grullon MD LABORATORY Performing Organization Address City/[facility]/ZIP Co de Phone Number [facility] [address] [place] [phone], [place] * (ABNORMAL) PANEL BASIC METABOLIC (BMP) (11/23/2023 8:31 AM CDT) CO2 24 22 - 30 mmol/L [facility] Glucose 192(H) 70 - 100 mg/dL [facility] BUN 20 6 - 20 mg/dL [facility] Creatinine 1.96(H) 0.70 - 1.25 mg/dL [facility] Calcium 8.5(L) 8.6 - 10.0 mg/dL [facility] Sodium 137 135 - 148 mmol/L [facility] Potassium 5.1 3.5 - 5.3 mmol/L [facility] Chloride 103 92 - 108 mmol/L [facility] eGFR (2020 CKD-EPI) 42(L) >=60 ml/min/1.7 3m2 [facility] Comment: The estimated glomerular filtration rate (eGFR) was calculated using the CKD-EPI 2020 creatinine equation, which does not include race as a factor. This equation is validated in individuals 18 years of age and older, and eGFR is normalized to a body surface area of 1.73m^2. AnGap 10 8 - 16 mmol/L [facility] Blood 11/23/2023 8:31 AM CDT 11/23/2023 9:12 AM CDT Zac Churchill MD LABORATORY [facility] [address] [id number] * (ABNORMAL) CBC WITH PLATELET (11/23/2023 8:31 AM CDT) WBC 13.36(H) 4.00 - 10.00 k/cmm [facility] RBC 3.57(L) 4.60 - 6.00 m/cmm [facility] Hgb 10.0(L) 13.1 - 17.5 g/dL [facility] Hematocrit 31.5(L) 40.0 - 51.0 % [facility] MCV 88.2 80.0 - 100.0 fL [facility] MCH 28.0 25.0 - 32.0 pg [facility] MCHC 31.7 31.0 - 36.0 g/dL [facility] RDW 14.4 11.5 - 14.5 % [facility] Plt 492(H) 150 - 400 k/cmm [facility] MPV 9.1 6.5 - 12.5 fL [facility] Blood 11/23/2023 8:31 AM CDT 11/23/2023 9:11 AM CDT Zac Churchill MD LABORATORY [facility] [address] [place] [phone] * (ABNORMAL) POC GLUCOSE (11/23/2023 6:43 AM CDT) POC Glucose 121(H) 70 - 100 mg/dL [facility] - POINT OF CARE Blood 11/23/2023 6:43 AM CDT Jessica Grullon MD LABORATORY Performing Organization Address City/[facility] Co de Phone Number [facility] [address] [place], [place] [address], [place] * POC GLUCOSE (11/22/2023 8:28 PM CDT) POC Glucose 95 70 - 100 mg/dL [facility] CARE Blood 11/22/2023 8:28 PM CDT Jessica Grullon MD LABORATORY Performing Organization Address City/[facility] Co de Phone Number [facility] [address] [place], [place] [address], [place] * (ABNORMAL) POC GLUCOSE (11/22/2023 4:10 PM CDT) POC Glucose 176(H) 70 - 100 mg/dL [facility]INT [facility] CARE Blood 11/22/2023 4:10 PM CDT Jessica Grullon MD LABORATORY Performing Organization Address City/[facility] Co de Phone Number [facility] POINT OF CARE [address] [place], [place] [address], [place] * (ABNORMAL) POC GLUCOSE (11/22/2023 11:21 AM CDT) POC Glucose 201(H) 70 - 100 mg/dL [facility] POINT OF CARE Blood 11/22/2023 11:2 1 AM CDT Jessica Grullon MD LABORATORY [facility] POINT OF CARE [address] [place] [address], * (ABNORMAL) CYSTATIN C (11/22/2023 9:23 AM CDT) Pathologist [facility] Cystatin C 1.43(H) 0.61 - 0.95 mg/L [facility] eGFR by Cystatin C 51(L) >=60 ml/min/1.7 3m2 [facility] Comment: Estimated GFR calculated using the CKD-EPI Cystatin C (2012) equation. Stage ? Description ?eGFR Range ??1.......Normal or increased eGFR.......90 or Greater ??2.......Mildly decreased eGFR..........60-89 ??3.......Moderately decreased eGFR......30-59 ??4.......Severely decreased eGFR........15-29 ??5.......Kidney Failure.................Less than 15 Blood 11/22/2023 9:23 AM CDT 11/22/2023 2:05 PM CDT Zac Churchill MD LABORATORY [facility] [address] [place] [phone] * (ABNORMAL) PANEL BASIC METABOLIC (BMP) (11/22/2023 9:23 AM CDT) Sodium 136 135 - 148 mmol/L [facility] Potassium 5.1 3.5 - 5.3 mmol/L [facility] Chloride 102 92 - 108 mmol/L [facility] CO2 24 22 - 30 mmol/L [facility] AnGap 10 8 - 16 mmol/L [facility] Glucose 254(H) 70 - 100 mg/dL [facility] BUN 20 6 - 20 mg/dL [facility] Creatinine 2.00(H) 0.70 - 1.25 mg/dL [facility] Calcium 8.6 8.6 - 10.0 mg/dL [facility] eGFR (2020 CKD-EPI) 41(L) >=60 ml/min/1.7 3m2 [facility] Comment: The estimated glomerular filtration rate (eGFR) was calculated using the CKD-EPI 2020 creatinine equation, which does not include race as a factor. This equation is validated in individuals 18 years of age and older, and eGFR is normalized to a body surface area of 1.73m^2. Blood 11/22/2023 9:23 AM CDT 11/22/2023 10:28 AM CDT Zac Churchill MD LABORATORY [facility] [address] [place] [address] * (ABNORMAL) CBC WITH PLATELET (11/22/2023 9:23 AM CDT) WBC 12.35(H) 4.00 - 10.00 k/cmm [facility] RBC 3.47(L) 4.60 - 6.00 m/cmm [facility] Hgb 9.8(L) 13.1 - 17.5 g/dL [facility] Hematocrit 30.8(L) 40.0 - 51.0 % [facility] MCV 88.8 80.0 - 100.0 fL [facility] MCH 28.2 25.0 - 32.0 pg [facility] MCHC 31.8 31.0 - 36.0 g/dL [facility] RDW 14.5 11.5 - 14.5 % [facility] Plt 530(H) 150 - 400 k/cmm [facility] MPV 9.3 6.5 - 12.5 fL [facility] Blood 11/22/2023 9:23 AM CDT 11/22/2023 10:28 AM CDT Zac Churchill MD LABORATORY [facility] [address] [place] [address] * (ABNORMAL) POC GLUCOSE (11/22/2023 6:55 AM CDT) POC Glucose 136(H) 70 - 100 mg/dL [facility] POINT OF CARE Blood 11/22/2023 6:55 AM CDT Jessica Grullon MD LABORATORY Performing Organization Address City/[facility]/ZIP Co de Phone Number [facility] [address] [place] [phone], [place] * (ABNORMAL) POC GLUCOSE (11/21/2023 8:38 PM CDT) POC Glucose 139(H) 70 - 100 mg/dL [facility] Blood 11/21/2023 8:38 PM CDT Jessica Grullon MD LABORATORY Performing Organization Address City/[facility] Co de Phone Number [address] [address], [place] * (ABNORMAL) POC GLUCOSE (11/21/2023 4:13 PM CDT) POC Glucose 141(H) 70 - 100 mg/dL [facility] POINT OF CARE Blood 11/21/2023 4:13 PM CDT Jessica Grullon MD LABORATORY [facility] POINT [facility] [address] [place] [address], [place] * (ABNORMAL) POC GLUCOSE (11/21/2023 11:12 AM CDT) Pathologist [facility] POC Glucose 177(H) 70 - 100 mg/dL [facility] POINT [facility] CARE Blood 11/21/2023 11:1 2 AM CDT Jessica Grullon MD LABORATORY Performing Organization Address [facility] Co de Phone Number [facility] [address] [place] [address], * (ABNORMAL) POC GLUCOSE (11/21/2023 6:08 AM CDT) Pathologist [facility] POC Glucose 131(H) 70 - 100 mg/dL [facility] POINT OF CARE Blood 11/21/2023 6:08 AM CDT Jessica Grullon MD LABORATORY Performing Organization Address [facility] de Phone Number [facility] [address] [place] [address], [place] * (ABNORMAL) PANEL BASIC METABOLIC (BMP) (11/21/2023 4:52 AM CDT) [facility] CO2 27 22 - 30 mmol/L [facility] Glucose 128(H) 70 - 100 mg/dL [facility] BUN 21(H) 6 - 20 mg/dL [facility] Creatinine 2.07(H) 0.70 - 1.25 mg/dL [facility] Calcium 8.4(L) 8.6 - 10.0 mg/dL [facility] Sodium 138 135 - 148 mmol/L [facility] Potassium 4.8 3.5 - 5.3 mmol/L [facility] Chloride 103 92 - 108 mmol/L [facility] eGFR (2020 CKD-EPI) 40(L) >=60 ml/min/1.7 3m2 [facility] Comment: The estimated glomerular filtration rate (eGFR) was calculated using the CKD-EPI 2020 creatinine equation, which does not include race as a factor. This equation is validated in individuals 18 years of age and older, and eGFR is normalized to a body surface area of 1.73m^2. AnGap 8 8 - 16 mmol/L [facility] Blood 11/21/2023 4:52 AM CDT 11/21/2023 5:27 AM CDT Zac Churchill MD LABORATORY Performing Organization Address City/[facility] Co de Phone Number [facility] [facility] [address] [address] * (ABNORMAL) CBC WITH PLATELET (11/21/2023 4:52 AM CDT) WBC 11.48(H) 4.00 - 10.00 k/cmm [facility] RBC 3.21(L) 4.60 - 6.00 m/cmm [facility] Hgb 9.0(L) 13.1 - 17.5 g/dL [facility] Hematocrit 28.7(L) 40.0 - 51.0 % [facility] MCV 89.4 80.0 - 100.0 fL [facility] MCH 28.0 25.0 - 32.0 pg [facility] MCHC 31.4 31.0 - 36.0 g/dL [facility] RDW 14.6(H) 11.5 - 14.5 % [facility] Plt 510(H) 150 - 400 k/cmm [facility] MPV 9.1 6.5 - 12.5 fL [facility] Blood 11/21/2023 4:52 AM CDT 11/21/2023 5:27 AM CDT Zac Churchill MD LABORATORY Performing Organization Address [facility] Co de Phone Number [facility] [address] [address] * (ABNORMAL) POC GLUCOSE (11/20/2023 9:13 PM CDT) POC Glucose 153(H) 70 - 100 mg/dL [facility] Blood 11/20/2023 9:13 PM CDT Jessica Grullon MD LABORATORY Performing Organization Address City/[facility]/ZIP Co de Phone Number [facility] [address] [place] [phone], * (ABNORMAL) POC GLUCOSE (11/20/2023 3:52 PM CDT) Pathologist [facility] POC Glucose 129(H) 70 - 100 mg/dL [facility] Blood 11/20/2023 3:52 PM CDT Jessica Grullon MD LABORATORY Performing Organization Address [facility] Co de Phone Number [facility] [address] [place] [address], [place] * (ABNORMAL) POC GLUCOSE (11/20/2023 11:16 AM CDT) [facility] POC Glucose 165(H) 70 - 100 mg/dL [facility] Blood 11/20/2023 11:1 6 AM CDT Jessica Grullon MD LABORATORY Performing Organization Address [facility] de Phone Number [facility] [address] [place] [address], [place] * (ABNORMAL) PANEL BASIC METABOLIC (BMP) (11/20/2023 8:18 AM CDT) [facility] Sodium 140 135 - 148 mmol/L [facility] Potassium 4.9 3.5 - 5.3 mmol/L [facility] Chloride 105 92 - 108 mmol/L [facility] CO2 26 22 - 30 mmol/L [facility] AnGap 9 8 - 16 mmol/L [facility] Glucose 147(H) 70 - 100 mg/dL [facility] BUN 21(H) 6 - 20 mg/dL [facility] Creatinine 2.02(H) 0.70 - 1.25 mg/dL [facility] Calcium 8.4(L) 8.6 - 10.0 mg/dL [facility] eGFR (2020 CKD-EPI) 41(L) >=60 ml/min/1.7 3m2 [facility] Comment: The estimated glomerular filtration rate (eGFR) was calculated using the CKD-EPI 2020 creatinine equation, which does not include race as a factor. This equation is validated in individuals 18 years of age and older, and eGFR is normalized to a body surface area of 1.73m^2. Blood 11/20/2023 8:18 AM CDT 11/20/2023 8:40 AM CDT 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 APRN, CNP LABORATORY [facility] [address] [address] * (ABNORMAL) CBC WITH PLTS/AUTO DIFF (11/20/2023 8:18 AM CDT) WBC 10.90(H) 4.00 - 10.00 k/cmm [facility] RBC 3.17(L) 4.60 - 6.00 m/cmm [facility] Hgb 9.0(L) 13.1 - 17.5 g/dL [facility] Hematocrit 28.3(L) 40.0 - 51.0 % [facility] MCV 89.3 80.0 - 100.0 fL [facility] MCH 28.4 25.0 - 32.0 pg [facility] MCHC 31.8 31.0 - 36.0 g/dL [facility] RDW 14.3 11.5 - 14.5 % [facility] Plt 492(H) 150 - 400 k/cmm [facility] MPV 9.2 6.5 - 12.5 fL [facility] Automated Abs Neutrophil 6.51(H) 1.70 - 6.50 k/cmm [facility] Comment:Preliminary ANC, Fin al Result to Follow Abs Immature Granulocyte 0.57(H) 0.00 - 0.09 k/cmm [facility] Comment:The Immature Granulo cyte Absolute count contains metamyelocytes and myelocytes. Abs Neutrophil 6.51(H) 1.70 - 6.50 k/cmm [facility] Abs Lymphocyte 2.07 0.80 - 4.00 k/cmm [facility] Abs Monocyte 1.27(H) 0.20 - 1.00 k/cmm [facility] Abs Eosinophil 0.45 0.00 - 0.60 k/cmm [facility] Abs Basophil 0.03 0.00 - 0.20 k/cmm [facility] Blood 11/20/2023 8:18 AM CDT 11/20/2023 8:40 AM CDT 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 APRN, CNP LABORATORY [facility] [address] [place] [address] * (ABNORMAL) POC GLUCOSE (11/20/2023 8:08 AM CDT) POC Glucose 133(H) 70 - 100 mg/dL [facility] Blood 11/20/2023 8:08 AM CDT Jessica Grullon MD LABORATORY Performing Organization Address City/[facility]/ZIP Co de Phone Number [facility] [address] [place] [address], [place] * (ABNORMAL) POC GLUCOSE (11/20/2023 6:30 AM CDT) POC Glucose 153(H) 70 - 100 mg/dL [facility] Blood 11/20/2023 6:30 AM CDT Jessica Grullon MD LABORATORY Performing Organization Address City/[facility] Co de Phone Number [facility] [address] [place] [phone], [place] * (ABNORMAL) POC GLUCOSE (11/19/2023 9:03 PM CDT) POC Glucose 148(H) 70 - 100 mg/dL [facility] Blood 11/19/2023 9:03 PM CDT Jessica Grullon MD LABORATORY [facility] [address] [place] [phone], [place] * (ABNORMAL) POC GLUCOSE (11/19/2023 3:55 PM CDT) POC Glucose 126(H) 70 - 100 mg/dL [facility] Blood 11/19/2023 3:55 PM CDT Jessica Grullon MD LABORATORY Performing Organization Address City/[facility]/ZIP Co de Phone Number [facility] [address] [place] [address], [place] * (ABNORMAL) POC GLUCOSE (11/19/2023 12:03 PM CDT) POC Glucose 147(H) 70 - 100 mg/dL [facility] Blood 11/19/2023 12:0 3 PM CDT Jessica Grullon MD LABORATORY Performing Organization Address City/[facility] Co de Phone Number [facility] [address] [place] [address], [place] * (ABNORMAL) POC GLUCOSE (11/19/2023 11:07 AM CDT) POC Glucose 159(H) 70 - 100 mg/dL [facility] Blood 11/19/2023 11:0 7 AM CDT Jessica Grullon MD LABORATORY Performing Organization Address City/[facility]/ZIP Co de Phone Number [facility] [address] [place] [address], [place] * (ABNORMAL) POC GLUCOSE (11/19/2023 8:51 AM CDT) POC Glucose 185(H) 70 - 100 mg/dL [facility] Blood 11/19/2023 8:51 AM CDT Jessica Grullon MD LABORATORY Performing Organization Address City/[facility]/ZIP Co de Phone Number [facility] [address] [place] [address], * (ABNORMAL) PANEL BASIC METABOLIC (BMP) (11/19/2023 7:58 AM CDT) CO2 24 22 - 30 mmol/L [facility] Glucose 221(H) 70 - 100 mg/dL [facility] BUN 25(H) 6 - 20 mg/dL [facility] Creatinine 2.19(H) 0.70 - 1.25 mg/dL [facility] Calcium 7.8(L) 8.6 - 10.0 mg/dL [facility] Sodium 138 135 - 148 mmol/L [facility] Potassium 4.7 3.5 - 5.3 mmol/L [facility] Chloride 104 92 - 108 mmol/L [facility] eGFR (2020 CKD-EPI) 37(L) >=60 ml/min/1.7 3m2 [facility] Comment: The estimated glomerular filtration rate (eGFR) was calculated using the CKD-EPI 2020 creatinine equation, which does not include race as a factor. This equation is validated in individuals 18 years of age and older, and eGFR is normalized to a body surface area of 1.73m^2. AnGap 10 8 - 16 mmol/L [facility] Blood 11/19/2023 7:58 AM CDT 11/19/2023 8:34 AM CDT 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 APRN, CNP LABORATORY [facility] [address] [place], [place] [id number] * (ABNORMAL) CBC WITH PLTS/AUTO DIFF (11/19/2023 7:58 AM CDT) WBC 10.66(H) 4.00 - 10.00 k/cmm [facility] RBC 3.14(L) 4.60 - 6.00 m/cmm [facility] Hgb 9.0(L) 13.1 - 17.5 g/dL [facility] Hematocrit 27.7(L) 40.0 - 51.0 % [facility] MCV 88.2 80.0 - 100.0 fL [facility] MCH 28.7 25.0 - 32.0 pg [facility] MCHC 32.5 31.0 - 36.0 g/dL [facility] RDW 14.3 11.5 - 14.5 % [facility] Plt 482(H) 150 - 400 k/cmm [facility] MPV 9.2 6.5 - 12.5 fL [facility] Automated Abs Neutrophil 6.41 1.70 - 6.50 k/cmm [facility] Comment:Preliminary ANC, Fin al Result to Follow Polychromasia Slight [facility] Abs Neutrophil 8.10(H) 1.70 - 6.50 k/cmm [facility] Abs Lymphocyte 1.07 0.80 - 4.00 k/cmm [facility] Abs Monocyte 0.85 0.20 - 1.00 k/cmm [facility] Abs Eosinophil 0.32 0.00 - 0.60 k/cmm [facility] Abs Basophil 0.11 0.00 - 0.20 k/cmm [facility] Abs Myelocyte 0.21(H) 0.00 - 0.00 k/cmm [facility] Blood 11/19/2023 7:58 AM CDT 11/19/2023 8:34 AM CDT 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 APRN, CNP LABORATORY [facility] [address] [address] * (ABNORMAL) POC GLUCOSE (11/19/2023 6:37 AM CDT) POC Glucose 212(H) 70 - 100 mg/dL [facility] Blood 11/19/2023 6:37 AM CDT Jessica Grullon MD LABORATORY [facility] [address] [place] [phone], * POC GLUCOSE (11/18/2023 8:54 PM CDT) POC Glucose 99 70 - 100 mg/dL [facility] Blood 11/18/2023 8:54 PM CDT Jessica Grullon MD LABORATORY Performing Organization Address City/[facility]/ZIP Co de Phone Number [facility] [address] [place] [address], [place] * (ABNORMAL) POC GLUCOSE (11/18/2023 8:20 PM CDT) POC Glucose 69(L) 70 - 100 mg/dL [facility] Blood 11/18/2023 8:20 PM CDT Jessica Grullon MD LABORATORY Performing Organization Address [facility] Co de Phone Number [facility] [address] [place] [phone], [place] * (ABNORMAL) POC GLUCOSE (11/18/2023 4:37 PM CDT) POC Glucose 154(H) 70 - 100 mg/dL [facility] Blood 11/18/2023 4:37 PM CDT Jessica Grullon MD LABORATORY Performing Organization Address [facility] Co de Phone Number [facility] [address] [place] [phone], [place] * (ABNORMAL) POC GLUCOSE (11/18/2023 11:03 AM CDT) POC Glucose 158(H) 70 - 100 mg/dL [facility] Blood 11/18/2023 11:0 3 AM CDT Jessica Grullon MD LABORATORY Performing Organization Address City/[facility] Co de Phone Number [facility] [address] [place] [phone], [place] * (ABNORMAL) PANEL BASIC METABOLIC (BMP) (11/18/2023 9:02 AM CDT) CO2 24 22 - 30 mmol/L [facility] Glucose 180(H) 70 - 100 mg/dL [facility] BUN 27(H) 6 - 20 mg/dL [facility] Creatinine 2.17(H) 0.70 - 1.25 mg/dL [facility] Calcium 8.2(L) 8.6 - 10.0 mg/dL [facility] Sodium 137 135 - 148 mmol/L [facility] Potassium 4.5 3.5 - 5.3 mmol/L [facility] Chloride 104 92 - 108 mmol/L [facility] eGFR (2020 CKD-EPI) 37(L) >=60 ml/min/1.7 3m2 [facility] Comment: The estimated glomerular filtration rate (eGFR) was calculated using the CKD-EPI 2020 creatinine equation, which does not include race as a factor. This equation is validated in individuals 18 years of age and older, and eGFR is normalized to a body surface area of 1.73m^2. AnGap 9 8 - 16 mmol/L [facility] Blood 11/18/2023 9:02 AM CDT 11/18/2023 9:21 AM CDT 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 APRN, CNP LABORATORY [facility] [address] [place] [phone] * (ABNORMAL) CBC WITH PLTS/AUTO DIFF (11/18/2023 9:02 AM CDT) WBC 10.61(H) 4.00 - 10.00 k/cmm [facility] RBC 3.36(L) 4.60 - 6.00 m/cmm [facility] Hgb 9.4(L) 13.1 - 17.5 g/dL [facility] Hematocrit 29.5(L) 40.0 - 51.0 % [facility] MCV 87.8 80.0 - 100.0 fL [facility] MCH 28.0 25.0 - 32.0 pg [facility] MCHC 31.9 31.0 - 36.0 g/dL [facility] RDW 14.2 11.5 - 14.5 % [facility] Plt 495(H) 150 - 400 k/cmm [facility] MPV 9.2 6.5 - 12.5 fL [facility] Automated Abs Neutrophil 6.34 1.70 - 6.50 k/cmm [facility] Comment:Preliminary ANC, Fin al Result to Follow NUC RBC 1.0(H) 0.0 - 0.0 /100WBC [facility] Polychromasia Slight [facility] Abs Neutrophil 7.32(H) 1.70 - 6.50 k/cmm [facility] Abs Lymphocyte 2.23 0.80 - 4.00 k/cmm [facility] Abs Monocyte 0.85 0.20 - 1.00 k/cmm [facility] Abs Eosinophil 0.21 0.00 - 0.60 k/cmm [facility] Blood 11/18/2023 9:02 AM CDT 11/18/2023 9:21 AM CDT 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 APRN, CNP LABORATORY Performing Organization Address [facility] Co de Phone Number [facility] [place] [address] * (ABNORMAL) POC GLUCOSE (11/18/2023 6:21 AM CDT) POC Glucose 194(H) 70 - 100 mg/dL [facility] Blood 11/18/2023 6:21 AM CDT Jessica Grullon MD LABORATORY Performing Organization Address City/[facility] Co de Phone Number [facility] [address] [place] [address] * (ABNORMAL) POC GLUCOSE (11/17/2023 8:19 PM CDT) POC Glucose 143(H) 70 - 100 mg/dL [facility] Blood 11/17/2023 8:19 PM CDT Jessica Grullon MD LABORATORY Performing Organization Address City/[facility]/ZIP Co de Phone Number [facility] [address] [place] [address] * (ABNORMAL) POC GLUCOSE (11/17/2023 4:40 PM CDT) [facility] POC Glucose 235(H) 70 - 100 mg/dL [facility] Blood 11/17/2023 4:40 PM CDT Jessica Grullon MD LABORATORY [facility] [address] [place] [address], [place] * (ABNORMAL) CBC WITH PLTS/AUTO DIFF (11/17/2023 2:35 PM CDT) [facility] WBC 11.70(H) 4.00 - 10.00 k/cmm [facility] RBC 3.37(L) 4.60 - 6.00 m/cmm [facility] Hgb 9.6(L) 13.1 - 17.5 g/dL [facility] Hematocrit 29.6(L) 40.0 - 51.0 % [facility] MCV 87.8 80.0 - 100.0 fL [facility] MCH 28.5 25.0 - 32.0 pg [facility] MCHC 32.4 31.0 - 36.0 g/dL [facility] RDW 14.2 11.5 - 14.5 % [facility] Plt 466(H) 150 - 400 k/cmm [facility] MPV 9.3 6.5 - 12.5 fL [facility] Automated Abs Neutrophil 7.44(H) 1.70 - 6.50 k/cmm [facility] Comment:Preliminary ANC, Fin al Result to Follow Abs Immature Granulocyte 0.52(H) 0.00 - 0.09 k/cmm [facility] Comment:The Immature Granulo cyte Absolute count contains metamyelocytes and myelocytes. Abs Neutrophil 7.44(H) 1.70 - 6.50 k/cmm [facility] Abs Lymphocyte 1.96 0.80 - 4.00 k/cmm [facility] Abs Monocyte 1.45(H) 0.20 - 1.00 k/cmm [facility] Abs Eosinophil 0.27 0.00 - 0.60 k/cmm [facility] Abs Basophil 0.06 0.00 - 0.20 k/cmm [facility] Polychromasia Slight [facility] Blood 11/17/2023 2:35 PM CDT 11/17/2023 2:57 PM CDT Scar Leyva MD LABORATORY Performing Organization Address City/[facility]/ZIP Co de Phone Number [facility] [address] [address] * (ABNORMAL) PANEL BASIC METABOLIC (BMP) (11/17/2023 2:35 PM CDT) CO2 21(L) 22 - 30 mmol/L [facility] Glucose 252(H) 70 - 100 mg/dL [facility] BUN 30(H) 6 - 20 mg/dL [facility] Creatinine 2.27(H) 0.70 - 1.25 mg/dL [facility] Calcium 8.2(L) 8.6 - 10.0 mg/dL [facility] Sodium 137 135 - 148 mmol/L [facility] Potassium 4.3 3.5 - 5.3 mmol/L [facility] Chloride 104 92 - 108 mmol/L [facility] eGFR (2020 CKD-EPI) 35(L) >=60 ml/min/1.7 3m2 [facility] Comment: The estimated glomerular filtration rate (eGFR) was calculated using the CKD-EPI 2020 creatinine equation, which does not include race as a factor. This equation is validated in individuals 18 years of age and older, and eGFR is normalized to a body surface area of 1.73m^2. AnGap 12 8 - 16 mmol/L [facility] Blood 11/17/2023 2:35 PM CDT 11/17/2023 2:57 PM CDT Scar Leyva MD LABORATORY Performing Organization Address City/[facility]/ZIP Co de Phone Number [facility] [address] [address] * ANTI XA ASSAY LMW HEPARIN (11/17/2023 11:47 AM CDT) Anti XA LMW <0.04 IU/mL [facility] Comment: Anti Xa Assay LMW Heparin Therapeutic Ranges: 0.4-1.1 IU/mL for twice daily 1.0-2.0 IU/mL for once daily Blood 11/17/2023 11:4 7 AM CDT 11/17/2023 12:01 PM CDT Zac Churchill MD LABORATORY Performing Organization Address [facility] Co de Phone Number [facility] [place] [address] * (ABNORMAL) POC GLUCOSE (11/17/2023 11:25 AM CDT) POC Glucose 190(H) 70 - 100 mg/dL [facility] Blood 11/17/2023 11:2 5 AM CDT Jessica Grullon MD LABORATORY Performing Organization Address [facility] de Phone Number [facility] [address] [place] [address], * XR FOOT LEFT 3 V AP/OBL/LAT* [...] POC Glucose 176(H) 70 - 100 mg/dL [facility] Blood 11/17/2023 10:0 1 AM CDT Jessica Grullon MD LABORATORY [facility] [address] [id number], * (ABNORMAL) TISSUE CULTURE:INCLUDES GRAM STAIN (11/17/2023 9:35 AM CDT) Final Report Positive Culture Previous positive called. Rare METHICILLIN RESISTANT Staphylococcus aureus (MRSA) isolated. 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 One colony Staphylococcus lugdunensis isolated. (POS) [facility] Organism METHICILLIN RESISTANT STAPHYLOCOCCUS AUREUS (MRSA)(POS) [facility] Organism STAPHYLOCOCCUS LUGDUNENSIS(POS) [facility] Gram Stain Report Few WBC's seen. No organisms seen. Gram stain electronically reported to and acknowledged by: Che Palomo MD for Podiatric Surgery on 11/17/2023 11:56:22 by Silver [employer] [facility] Tissue TOE STRUCTURE / Unknown 11/17/2023 [...] Vancomycin VITEK JORDY <=0.5: Sensitive Che Palomo [facility] MICROBIOLOGY Performing Organization Address [facility] de Phone Number [facility] [address] [address] * FUNGUS CULTURE:INCLUDES SUHAS (11/17/2023 9:35 AM CDT) Final Report No fungus isolated. [facility] SUHAS Prep No fungal elements seen. [facility] Tissue TOE STRUCTURE / Unknown 11/17/2023 9:35 AM CDT Che Palomo [facility] MICROBIOLOGY Performing Organization Address [facility] de Phone Number [facility] [address] [address] * ANAEROBE CULTURE (11/17/2023 9:35 AM CDT) Final Report No anaerobes isolated. [facility] Tissue TOE STRUCTURE / Unknown 11/17/2023 9:35 AM CDT Che Palomo DPM LAB MICROBIOLOGY Performing Organization Address [facility] Co de Phone Number [facility] [address] [address] * AFB CULTURE:INCLUDES AFB SMEAR (11/17/2023 9:35 AM CDT) Final Report No acid fast bacilli isolated. [facility] Acid Fast Stain No acid fast bacilli seen. [facility] Tissue TOE STRUCTURE / Unknown 11/17/2023 9:35 AM CDT Che Palomo DP LAB MICROBIOLOGY Performing Organization Address [facility] de Phone Number [facility] [address] [address] * M TUBERCULOSIS AMPLIFICATION (11/17/2023 9:32 AM CDT) Final Report M. tuberculosis complex DNA not detected. [facility] Tissue TOE STRUCTURE / Unknown 11/17/2023 9:32 AM CDT 11/18/2023 9:56 AM CDT Comment:1: Left hallux soft tissue dirty Narrative [facility] - 11/18/2023 2:41 PM CDT This assay uses PCR nucleic acid amplification to detect Mycobacterium tuberculosis complex DNA. ??This test was developed and its performance characteristics determined by [facility]. ??It has not been cleared or approved by the U.S. Food and Drug Administration. ??FDA does not require this test to go through premarket FDA review. ??This test is used for clinical purposes. ??It should not be regarded as investigational or for research. ??[facility] is certified under the Clinical Laboratory Improvement Amendments of 1988 (CLIA) as qualified to perform high complexity clinical laboratory testing. Che Palomo DP LAB MICROBIOLOGY Performing Organization Address [facility] Co de Phone Number [facility] [address] [address] * (ABNORMAL) TISSUE CULTURE:INCLUDES GRAM STAIN (11/17/2023 9:32 AM CDT) Final Report Positive Culture Rare METHICILLIN RESISTANT Staphylococcus aureus (MRSA) isolated. 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 Rare Group B beta hemolytic Streptococcus isolated. Pseudomonas aeruginosa isolated in broth only. Results electronically reported to and acknowledged by: Paula Vazquez MD, in Surgery [place], at ?? 11/23/2023 07:49:11 by Pam Alvarado MLS. (POS) [facility] Organism METHICILLIN RESISTANT STAPHYLOCOCCUS AUREUS (MRSA)(POS) [facility] Organism GROUP B BETA HEMOLYTIC STREPTOCOCCUS(POS) [facility] Organism PSEUDOMONAS AERUGINOSA(POS) [facility] Gram Stain Report Positive Gram stain Gram stain electronically reported to and acknowledged by: Che Zheng MD for Podiatric Surgery on 11/17/2023 11:55:10 by Silver Luna MLS Rare WBC's seen. Rare gram positive cocci clusters. (POS) [facility] Tissue TOE STRUCTURE / Unknown 11/17/2023 [...] <=1: Sensitive Che Palomo M LAB MICROBIOLOGY [facility] [address] [address] * FUNGUS CULTURE:INCLUDES SUHAS (11/17/2023 9:32 AM CDT) Final Report No fungus isolated. [facility] SUHAS Prep No fungal elements seen. [facility] Tissue TOE STRUCTURE / Unknown 11/17/2023 9:32 AM CDT Che L Beth DP LAB MICROBIOLOGY Performing Organization Address [facility] Co de Phone Number [facility] [address] [address] * (ABNORMAL) ANAEROBE CULTURE (11/17/2023 9:32 AM CDT) Final Report Positive Culture Rare Veillonella parvula group isolated. Rare Actinomyces europaeus isolated. (POS) [facility] Organism VEILLONELLA PARVULA GROUP(POS) [facility] Organism ACTINOMYCES EUROPAEUS(POS) [facility] Tissue TOE STRUCTURE / Unknown 11/17/2023 9:32 AM CDT Che L Beth DP LAB MICROBIOLOGY Performing Organization Address [facility] Co de Phone Number [facility] [address] [address] * AFB CULTURE:INCLUDES AFB SMEAR (11/17/2023 9:32 AM CDT) Final Report No acid fast bacilli isolated. [facility] Acid Fast Stain No acid fast bacilli seen. [facility] Tissue TOE STRUCTURE / Unknown 11/17/2023 9:32 AM CDT Che L Beth DPM LAB MICROBIOLOGY Performing Organization Address [facility] Co de Phone Number [facility] [address] [address] * SURGICAL PATHOLOGY (11/17/2023 9:31 AM CDT) SURG PATH FINAL ?Surgical Pathology Report Collection Date: ?11/17/2023 09:31 CDT ?Ordering Physician: ? CHE PALOMO Received Date: ?11/17/2023 09:49 CDT ?Accession Number: ? [id number] ? Surgical Pathology Final Report Specimen Type: [...] underlying soft tissue with moderate osseous softening. Frame Operator sections are submitted on decalcification as [...] Rodriguez M.D. Attending Pathologist. DDB/DDB 11.17.2023 10:26 [facility] AP Specimen FOOT STRUCTURE / Unknown 11/17/2023 9:31 AM CDT Comment:OR: Routine gross an d microscopic examination Tissue: Left Hallux Site: left foot Additional clinical information: Che Palomo DPM LAB PATHOLOGY Performing Organization Address [facility] Co de Phone Number [facility] [address] [address] * (ABNORMAL) POC GLUCOSE (11/17/2023 9:14 AM CDT) POC Glucose 169(H) 70 - 100 mg/dL [facility] Blood 11/17/2023 9:14 AM CDT Jessica Grullon MD LABORATORY Performing Organization Address [facility] Co de Phone Number [facility] [address] [place] [address], [place] * ULT ARTERIAL LOWER EXTREMITY LEFT [...] POC Glucose 205(H) 70 - 100 mg/dL [facility] Blood 11/17/2023 6:07 AM CDT Jessica Grullon MD LABORATORY Performing Organization Address [facility] Co de Phone Number [facility] [address] [place] [address], [place] * (ABNORMAL) POC GLUCOSE (11/16/2023 8:46 PM CDT) POC Glucose 141(H) 70 - 100 mg/dL [facility] Blood 11/16/2023 8:46 PM CDT Jessica Grullon MD LABORATORY Performing Organization Address [facility] de Phone Number [facility] [address] [place] [address], [place] * XR FOOT LEFT 3 V [...] POC Glucose 148(H) 70 - 100 mg/dL [facility] Blood 11/16/2023 4:14 PM CDT Jessica Grullon MD LABORATORY Performing Organization Address [facility] Co de Phone Number [facility] [address] [place] [address], [place] * (ABNORMAL) POC GLUCOSE (11/16/2023 10:55 AM CDT) POC Glucose 203(H) 70 - 100 mg/dL [facility] Blood 11/16/2023 10:5 5 AM CDT Jessica Grullon MD LABORATORY Performing Organization Address [facility]/ZIP Co de Phone Number [facility] [address] [place] [address], [place] * (ABNORMAL) CBC WITH PLATELET (11/16/2023 8:45 AM CDT) WBC 13.08(H) 4.00 - 10.00 k/cmm [facility] RBC 3.38(L) 4.60 - 6.00 m/cmm [facility] Hgb 9.6(L) 13.1 - 17.5 g/dL [facility] Hematocrit 28.9(L) 40.0 - 51.0 % [facility] MCV 85.5 80.0 - 100.0 fL [facility] MCH 28.4 25.0 - 32.0 pg [facility] MCHC 33.2 31.0 - 36.0 g/dL [facility] RDW 13.4 11.5 - 14.5 % [facility] Plt 475(H) 150 - 400 k/cmm [facility] MPV 9.5 6.5 - 12.5 fL [facility] Blood 11/16/2023 8:45 AM CDT 11/16/2023 8:58 AM CDT 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 APRN, CNP LABORATORY [facility] [address] [place] [address] * (ABNORMAL) PANEL BASIC METABOLIC (BMP) (11/16/2023 8:45 AM CDT) CO2 21(L) 22 - 30 mmol/L [facility] Glucose 261(H) 70 - 100 mg/dL [facility] BUN 35(H) 6 - 20 mg/dL [facility] Creatinine 2.67(H) 0.70 - 1.25 mg/dL [facility] Calcium 8.3(L) 8.6 - 10.0 mg/dL [facility] Sodium 139 135 - 148 mmol/L [facility] Potassium 4.4 3.5 - 5.3 mmol/L [facility] Chloride 106 92 - 108 mmol/L [facility] eGFR (2020 CKD-EPI) 29(L) >=60 ml/min/1.7 3m2 [facility] Comment: The estimated glomerular filtration rate (eGFR) was calculated using the CKD-EPI 2020 creatinine equation, which does not include race as a factor. This equation is validated in individuals 18 years of age and older, and eGFR is normalized to a body surface area of 1.73m^2. AnGap 12 8 - 16 mmol/L [facility] Blood 11/16/2023 8:45 AM CDT 11/16/2023 8:57 AM CDT 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 APRN, CNP LABORATORY Performing Organization Address City/[facility] Co de Phone Number [facility] [address] [address] * (ABNORMAL) POC GLUCOSE (11/16/2023 7:37 AM CDT) POC Glucose 180(H) 70 - 100 mg/dL [facility] Blood 11/16/2023 7:37 AM CDT Jessica Grullon MD LABORATORY Performing Organization Address [facility] Co de Phone Number [facility]ARE [address] [place] [address], * (ABNORMAL) POC GLUCOSE (11/15/2023 9:23 PM CDT) POC Glucose 144(H) 70 - 100 mg/dL [facility] Blood 11/15/2023 9:23 PM CDT Jessica Grullon MD LABORATORY Performing Organization Address City/[facility] Co de Phone Number [facility] [address] [place] [address], * (ABNORMAL) POC GLUCOSE (11/15/2023 4:18 PM CDT) POC Glucose 159(H) 70 - 100 mg/dL [facility] Blood 11/15/2023 4:18 PM CDT Jessica Grullon MD LABORATORY Performing Organization Address [facility] Co de Phone Number [facility] [address] [place] [address], * (ABNORMAL) POC GLUCOSE (11/15/2023 11:19 AM CDT) POC Glucose 221(H) 70 - 100 mg/dL [facility] Blood 11/15/2023 11:1 9 AM CDT Jessica Grullon MD LABORATORY Performing Organization Address [facility] Co de Phone Number [facility] POINT OF [address] [address], [place] * (ABNORMAL) PANEL BASIC METABOLIC (BMP) (11/15/2023 7:39 AM CDT) CO2 21(L) 22 - 30 mmol/L [facility] Glucose 176(H) 70 - 100 mg/dL [facility] BUN 38(H) 6 - 20 mg/dL [facility] Creatinine 2.86(H) 0.70 - 1.25 mg/dL [facility] Calcium 7.6(L) 8.6 - 10.0 mg/dL [facility] Sodium 136 135 - 148 mmol/L [facility] Potassium 4.2 3.5 - 5.3 mmol/L [facility] Chloride 102 92 - 108 mmol/L [facility] eGFR (2020 CKD-EPI) 27(L) >=60 ml/min/1.7 3m2 [facility] Comment: The estimated glomerular filtration rate (eGFR) was calculated using the CKD-EPI 2020 creatinine equation, which does not include race as a factor. This equation is validated in individuals 18 years of age and older, and eGFR is normalized to a body surface area of 1.73m^2. AnGap 13 8 - 16 mmol/L [facility] Blood 11/15/2023 7:39 AM CDT 11/15/2023 7:58 AM CDT Shani Shaw MD LABORATORY Performing Organization Address City/[facility]/ZIP Co de Phone Number [facility] [place] [address] [address] * (ABNORMAL) CREATININE, SERUM (11/15/2023 7:39 AM CDT) Creatinine 2.83(H) 0.70 - 1.25 mg/dL [facility] eGFR (2020 CKD-EPI) 27(L) >=60 ml/min/1.7 3m2 [facility] Comment: The estimated glomerular filtration rate (eGFR) was calculated using the CKD-EPI 2020 creatinine equation, which does not include race as a factor. This equation is validated in individuals 18 years of age and older, and eGFR is normalized to a body surface area of 1.73m^2. Blood 11/15/2023 7:39 AM CDT 11/15/2023 7:58 AM CDT Shani Shaw MD LABORATORY Performing Organization Address City/[facility]/ZIP Co de Phone Number [facility] [address] [address] * HEPATITIS C ANTIBODY WITH CONDITIONAL PCR (11/15/2023 7:39 AM CDT) Hep C Lilly Nonreactive Nonreactive [facility] Comment:Performance characte ristics have not been established with this test on patients less than 10 years of age. Blood 11/15/2023 7:39 AM CDT 11/15/2023 7:58 AM CDT Zac Churchill MD LABORATORY [facility] [address] [address] * HIV COMBO (11/15/2023 7:39 AM CDT) HIV Antigen-Antibody Nonreactive Nonreactive [facility] Comment:Performance characte ristics have not been established with this test on patients less than 2 years of age. Blood 11/15/2023 7:39 AM CDT 11/15/2023 7:58 AM CDT Zac Churchill MD LABORATORY [facility] [address] [place] [address] * (ABNORMAL) POC GLUCOSE (11/15/2023 6:16 AM CDT) POC Glucose 154(H) 70 - 100 mg/dL [facility] Blood 11/15/2023 6:16 AM CDT Jessica Grullon MD LABORATORY [facility]ARE [address] [place] [address], [place] * (ABNORMAL) POC GLUCOSE (11/14/2023 8:34 PM CDT) POC Glucose 159(H) 70 - 100 mg/dL [facility] Blood 11/14/2023 8:34 PM CDT Jessica Grullon MD LABORATORY Performing Organization Address City/[facility] Co de Phone Number [facility] POINT OF [address] [address], [place] * (ABNORMAL) POC GLUCOSE (11/14/2023 4:36 PM CDT) POC Glucose 182(H) 70 - 100 mg/dL [facility] Blood 11/14/2023 4:36 PM CDT Jessica Grullon MD LABORATORY [facility] [address] [place] [address], [place] * (ABNORMAL) PROTEIN TO CREAT RATIO,URINE (11/14/2023 9:58 AM CDT) TPU 22(H) 0 - 11 mg/dL [facility] Creat Urine 89 30 - 125 mg/dL [facility] Protein to Creat Ratio, Ur 0.25(H) 0.00 - 0.06 mg/mg [facility] Urine 11/14/2023 9:58 AM CDT 11/14/2023 10:06 AM CDT Zac Churchill MD LABORATORY Performing Organization Address [facility] Co de Phone Number [facility] [address] [address] * (ABNORMAL) URINALYSIS,TOTAL (11/14/2023 9:58 AM CDT) Color YELLOW YELLOW [facility] Appearance CLEAR CLEAR [facility] Urine Glucose 500(A) NEGATIVE mg/dL [facility] Bili UA NEGATIVE NEGATIVE [facility] Ketones NEGATIVE NEGATIVE [facility] Specific [place] 1.012 1.003 - 1.030 [facility] Blood Ur NEGATIVE Neg-Trace [facility] PH Urine 5.5 5.0 - 7.0 [facility] Protein Ur TRACE Neg-Trace [facility] Urobilinogen NORMAL NORMAL EU/dL [facility] Nitrite Ur NEGATIVE NEGATIVE [facility] Leuk Est NEGATIVE Neg-Trace [facility] WBC Ur 0-5 0 - 5 perHPF [facility] RBC Ur 0-3 0 - 3 perHPF [facility] Mucus 1+ perLPF [facility] Urinalysis Performed at: [facility] Urine 11/14/2023 9:58 AM CDT 11/14/2023 10:06 AM CDT Zac Churchill MD LABORATORY Performing Organization Address [facility] Co de Phone Number [facility] [address] [address] * (ABNORMAL) POC GLUCOSE (11/14/2023 6:14 AM CDT) Pathologist [facility] POC Glucose 171(H) 70 - 100 mg/dL [facility] Blood 11/14/2023 6:14 AM CDT Jessica Grullon MD LABORATORY Performing Organization Address [facility]/ZIP Co de Phone Number [facility] [address] [place] [address], * VANCOMYCIN LEVEL (11/14/2023 5:30 AM CDT) Vancomycin 19.9 mcg/mL [facility] Comment:Expected Range (Trou gh): 10-20 mcg/ml Blood 11/14/2023 5:30 AM CDT 11/14/2023 5:56 AM CDT Zac Churchill MD LABORATORY Performing Organization Address [facility] Co de Phone Number [facility] [address] [place] [address] * (ABNORMAL) CYSTATIN C (11/14/2023 5:30 AM CDT) Cystatin C 1.78(H) 0.61 - 0.95 mg/L [facility] eGFR by Cystatin C 38(L) >=60 ml/min/1.7 3m2 [facility] Comment: Estimated GFR calculated using the CKD-EPI Cystatin C (2012) equation. Stage ? Description ?eGFR Range ??1.......Normal or increased eGFR.......90 or Greater ??2.......Mildly decreased eGFR..........60-89 ??3.......Moderately decreased eGFR......30-59 ??4.......Severely decreased eGFR........15-29 ??5.......Kidney Failure.................Less than 15 Blood 11/14/2023 5:30 AM CDT 11/14/2023 5:56 AM CDT Zac Churchill MD LABORATORY Performing Organization Address [facility]/ZIP Co de Phone Number [facility] [address] [place] [address] * PHOSPHORUS (11/14/2023 5:30 AM CDT) Phosphorus 4.3 2.5 - 4.5 mg/dL [facility] Blood 11/14/2023 5:30 AM CDT 11/14/2023 5:56 AM CDT Zac Churchill MD LABORATORY Performing Organization Address City/[facility] Co de Phone Number [facility] [address] [address] * (ABNORMAL) PANEL BASIC METABOLIC (BMP) (11/14/2023 5:30 AM CDT) Sodium 136 135 - 148 mmol/L [facility] Potassium 4.1 3.5 - 5.3 mmol/L [facility] Chloride 103 92 - 108 mmol/L [facility] CO2 24 22 - 30 mmol/L [facility] AnGap 9 8 - 16 mmol/L [facility] Glucose 194(H) 70 - 100 mg/dL [facility] BUN 40(H) 6 - 20 mg/dL [facility] Creatinine 3.21(H) 0.70 - 1.25 mg/dL [facility] Calcium 8.2(L) 8.6 - 10.0 mg/dL [facility] eGFR (2020 CKD-EPI) 23(L) >=60 ml/min/1.7 3m2 [facility] Comment: The estimated glomerular filtration rate (eGFR) was calculated using the CKD-EPI 2020 creatinine equation, which does not include race as a factor. This equation is validated in individuals 18 years of age and older, and eGFR is normalized to a body surface area of 1.73m^2. Blood 11/14/2023 5:30 AM CDT 11/14/2023 5:56 AM CDT Zac Churchill MD LABORATORY Performing Organization Address City/[facility]/ZIP Co de Phone Number [facility] [address] [address] * MAGNESIUM (11/14/2023 5:30 AM CDT) Magnesium 2.4 1.6 - 2.6 mg/dL [facility] Blood 11/14/2023 5:30 AM CDT 11/14/2023 5:56 AM CDT Zac Churchill MD LABORATORY Performing Organization Address City/[facility]/ZIP Co de Phone Number [facility] [address] [address] * (ABNORMAL) CBC WITH PLATELET (11/14/2023 5:30 AM CDT) WBC 11.96(H) 4.00 - 10.00 k/cmm [facility] RBC 3.21(L) 4.60 - 6.00 m/cmm [facility] Hgb 9.1(L) 13.1 - 17.5 g/dL [facility] Hematocrit 28.5(L) 40.0 - 51.0 % [facility] MCV 88.8 80.0 - 100.0 fL [facility] MCH 28.3 25.0 - 32.0 pg [facility] MCHC 31.9 31.0 - 36.0 g/dL [facility] RDW 13.4 11.5 - 14.5 % [facility] Plt 372 150 - 400 k/cmm [facility] MPV 9.8 6.5 - 12.5 fL [facility] Blood 11/14/2023 5:30 AM CDT 11/14/2023 5:54 AM CDT Zac Churchill MD LABORATORY Performing Organization Address [facility]/ZIP Co de Phone Number [facility] [address] [id number] * (ABNORMAL) POC GLUCOSE (11/13/2023 9:00 PM CDT) POC Glucose 206(H) 70 - 100 mg/dL [facility] Blood 11/13/2023 9:00 PM CDT Jessica Grullon MD LABORATORY [facility] [address] [place] [phone], * (ABNORMAL) POC GLUCOSE (11/13/2023 4:44 PM CDT) POC Glucose 181(H) 70 - 100 mg/dL [facility] Blood 11/13/2023 4:44 PM CDT Jessica Grullon MD LABORATORY Performing Organization Address [facility] [facility] Co de Phone Number [facility] [address] [place] [phone], [place] * (ABNORMAL) POC GLUCOSE (11/13/2023 10:56 AM CDT) POC Glucose 170(H) 70 - 100 mg/dL [facility] Blood 11/13/2023 10:5 6 AM CDT Jessica Grullon MD LABORATORY Performing Organization Address [facility] de Phone Number [facility] [address] [address], [place] * URINE CHLAMYDIA AND NEISSERIAE GONORRHOEAE AMPLIFICATION (11/13/2023 10:45 AM CDT) Pathologist [facility] Chlamydia Amplification - Urine Negative Negative [facility] Comment:Test performed by tr anscription mediated amplification and is FDA approved for genital and urine specimens. N. Gonorrhea Amplification - Urine Negative Negative [facility] Comment:Test performed by tr anscription mediated amplification and is FDA approved for genital and urine specimens. Urine 11/13/2023 10:4 5 AM CDT 11/13/2023 3:03 PM CDT Narrative [facility] - 11/15/2023 12:29 PM CDT For Urines, use first void. Zac Churchill MD LABORATORY Performing Organization Address City/[facility]/ZIP Co de Phone Number [facility] [address] [place] [phone] * HEPATITIS B SURFACE ANTIGEN (11/13/2023 10:20 AM CDT) Pathologist [facility] HBV Surface Ag Nonreactive Nonreactive [facility] Comment: Testing performed at: [address] [address] Blood 11/13/2023 10:2 0 AM CDT 11/13/2023 10:27 AM CDT Zac Churchill MD LABORATORY Performing Organization Address City/[facility] Co de Phone Number [address] [address] * HEPATITIS B SURFACE ANTIBODY (11/13/2023 10:20 AM CDT) [facility] HBsAb Quant <3.31 mIU/ml [facility] Comment:The Hepatitis B Surf gabriella Antibody quantitation is less than 8.00 mIU/mL. There is no evidence of an antibody response to a hepatitis B vaccination or recovery from a hepatitis B infection. This patient is presumed non-immune to hepatitis B. HBsAb Interpretation Nonreactive [facility] Blood 11/13/2023 10:2 0 AM CDT 11/13/2023 10:27 AM CDT Zac Churchill MD LABORATORY Performing Organization Address [facility] Co de Phone Number [address] [address] * (ABNORMAL) POC GLUCOSE (11/13/2023 6:08 AM CDT) [facility] POC Glucose 154(H) 70 - 100 mg/dL [facility] Blood 11/13/2023 6:08 AM CDT Jessica Grullon MD LABORATORY [facility] [address] [place] [address], * (ABNORMAL) CYSTATIN C (11/13/2023 5:18 AM CDT) [facility] eGFR by Cystatin C 31(L) >=60 ml/min/1.7 3m2 [facility] Comment: Estimated GFR calculated using the CKD-EPI Cystatin C (2012) equation. Stage ? Description ?eGFR Range ??1.......Normal or increased eGFR.......90 or Greater ??2.......Mildly decreased eGFR..........60-89 ??3.......Moderately decreased eGFR......30-59 ??4.......Severely decreased eGFR........15-29 ??5.......Kidney Failure.................Less than 15 Cystatin C 2.11(H) 0.61 - 0.95 mg/L [facility] Blood 11/13/2023 5:18 AM CDT 11/13/2023 5:47 AM CDT Zac Churchill MD LABORATORY Performing Organization Address [facility] de Phone Number [facility] [place] [phone] * VANCOMYCIN LEVEL (11/13/2023 5:18 AM CDT) Vancomycin 35.4 mcg/mL [facility] Comment:Expected Range (Trou gh): 10-20 mcg/ml Blood 11/13/2023 5:18 AM CDT 11/13/2023 5:47 AM CDT Zac Churchill MD LABORATORY Performing Organization Address [facility] Co de Phone Number [address] [address] * (ABNORMAL) PHOSPHORUS (11/13/2023 5:18 AM CDT) Phosphorus 5.2(H) 2.5 - 4.5 mg/dL [facility] Blood 11/13/2023 5:18 AM CDT 11/13/2023 5:47 AM CDT Zac Churchill MD LABORATORY [facility] [address] [address] * (ABNORMAL) PANEL BASIC METABOLIC (BMP) (11/13/2023 5:18 AM CDT) AnGap 12 8 - 16 mmol/L [facility] Sodium 137 135 - 148 mmol/L [facility] Chloride 103 92 - 108 mmol/L [facility] BUN 37(H) 6 - 20 mg/dL [facility] Calcium 7.8(L) 8.6 - 10.0 mg/dL [facility] CO2 22 22 - 30 mmol/L [facility] Glucose 168(H) 70 - 100 mg/dL [facility] Creatinine 3.04(H) 0.70 - 1.25 mg/dL [facility] Potassium 4.4 3.5 - 5.3 mmol/L [facility] eGFR (2020 CKD-EPI) 25(L) >=60 ml/min/1.7 3m2 [facility] Comment: The estimated glomerular filtration rate (eGFR) was calculated using the CKD-EPI 2020 creatinine equation, which does not include race as a factor. This equation is validated in individuals 18 years of age and older, and eGFR is normalized to a body surface area of 1.73m^2. Blood 11/13/2023 5:18 AM CDT 11/13/2023 5:47 AM CDT Zac Churchill MD LABORATORY Performing Organization Address City/[facility]/ZIP Co de Phone Number [facility] [address] [address] * MAGNESIUM (11/13/2023 5:18 AM CDT) Magnesium 2.3 1.6 - 2.6 mg/dL [facility] Blood 11/13/2023 5:18 AM CDT 11/13/2023 5:47 AM CDT Zac Churchill MD LABORATORY Performing Organization Address City/[facility]/ZIP Co de Phone Number [facility] [address] [address] * (ABNORMAL) CBC WITH PLATELET (11/13/2023 5:18 AM CDT) Pathologist [facility] WBC 13.27(H) 4.00 - 10.00 k/cmm [facility] RBC 3.28(L) 4.60 - 6.00 m/cmm [facility] Hgb 9.2(L) 13.1 - 17.5 g/dL [facility] Hematocrit 30.0(L) 40.0 - 51.0 % [facility] MCV 91.5 80.0 - 100.0 fL [facility] MCH 28.0 25.0 - 32.0 pg [facility] MCHC 30.7(L) 31.0 - 36.0 g/dL [facility] RDW 13.5 11.5 - 14.5 % [facility] Plt 317 150 - 400 k/cmm [facility] MPV 10.1 6.5 - 12.5 fL [facility] Blood 11/13/2023 5:18 AM CDT 11/13/2023 5:47 AM CDT Zac Churchill MD LABORATORY Performing Organization Address City/[facility]/ZIP Co de Phone Number [facility] [address] [address] * RPR SYPHILIS SCREEN (11/12/2023 11:10 PM CDT) Pathologist [facility] RPR Screen Non-Reactive Non-Reacti ve [facility] RPR Titer Not Reflexed [facility] Blood 11/12/2023 11:1 0 PM CDT 11/12/2023 11:40 PM CDT Zac Churchill MD LABORATORY [facility] [address] [address] * (ABNORMAL) POC GLUCOSE (11/12/2023 8:47 PM CDT) POC Glucose 196(H) 70 - 100 mg/dL [facility] Blood 11/12/2023 8:47 PM CDT Jessica Grullon MD LABORATORY Performing Organization Address [facility] de Phone Number [facility] [address] [place] [address], * (ABNORMAL) POC GLUCOSE (11/12/2023 4:41 PM CDT) [facility] Signature POC Glucose 172(H) 70 - 100 mg/dL [facility] Blood 11/12/2023 4:41 PM CDT Jessica Grullon MD LABORATORY Performing Organization Address [facility] de Phone Number [facility] [place] [address], * VANCOMYCIN LEVEL (11/12/2023 1:22 PM CDT) Pathologist [facility] Vancomycin 47.5 mcg/mL [facility] Comment:Expected Range (Trou gh): 10-20 mcg/ml Blood 11/12/2023 1:22 PM CDT 11/12/2023 1:34 PM CDT Narrative [facility] - 11/12/2023 2:28 PM CDT Peak or trough:->Trough Zac Churchill MD LABORATORY Performing Organization Address [facility] Co de Phone Number [facility] [address] [place] [address] * (ABNORMAL) CYSTATIN C (11/12/2023 11:36 AM CDT) Cystatin C 2.20(H) 0.61 - 0.95 mg/L [facility] eGFR by Cystatin C 29(L) >=60 ml/min/1.7 3m2 [facility] Comment: Estimated GFR calculated using the CKD-EPI Cystatin C (2012) equation. Stage ? Description ?eGFR Range ??1.......Normal or increased eGFR.......90 or Greater ??2.......Mildly decreased eGFR..........60-89 ??3.......Moderately decreased eGFR......30-59 ??4.......Severely decreased eGFR........15-29 ??5.......Kidney Failure.................Less than 15 Blood 11/12/2023 11:3 6 AM CDT 11/12/2023 2:53 PM CDT Zac Churchill MD LABORATORY Performing Organization Address [facility] de Phone Number [facility] [place] [phone] * (ABNORMAL) PHOSPHORUS (11/12/2023 11:36 AM CDT) Phosphorus 5.8(H) 2.5 - 4.5 mg/dL [facility] Blood 11/12/2023 11:3 6 AM CDT 11/12/2023 11:49 AM CDT Zac Churchill MD LABORATORY Performing Organization Address [facility] de Phone Number [facility] [address] [address] * (ABNORMAL) PANEL BASIC METABOLIC (BMP) (11/12/2023 11:36 AM CDT) Sodium 137 135 - 148 mmol/L [facility] Potassium 4.9 3.5 - 5.3 mmol/L [facility] Chloride 104 92 - 108 mmol/L [facility] CO2 23 22 - 30 mmol/L [facility] AnGap 10 8 - 16 mmol/L [facility] Glucose 160(H) 70 - 100 mg/dL [facility] BUN 29(H) 6 - 20 mg/dL [facility] Creatinine 2.24(H) 0.70 - 1.25 mg/dL [facility] Calcium 7.8(L) 8.6 - 10.0 mg/dL [facility] eGFR (2020 CKD-EPI) 36(L) >=60 ml/min/1.7 3m2 [facility] Comment: The estimated glomerular filtration rate [...] Zac Churchill MD LABORATORY Performing Organization Address City/[facility] Co de Phone Number [facility] [address] [address] * MAGNESIUM (11/12/2023 11:36 AM CDT) Magnesium 2.3 1.6 - 2.6 mg/dL [facility] Blood 11/12/2023 11:3 6 AM CDT 11/12/2023 11:49 AM CDT Zac Churchill MD LABORATORY Performing Organization Address [facility] Co de Phone Number [facility] [address] [address] * (ABNORMAL) CBC WITH PLATELET (11/12/2023 11:36 AM CDT) WBC 17.87(H) 4.00 - 10.00 k/cmm [facility] RBC 3.40(L) 4.60 - 6.00 m/cmm [facility] Hgb 9.6(L) 13.1 - 17.5 g/dL [facility] Hematocrit 31.1(L) 40.0 - 51.0 % [facility] MCV 91.5 80.0 - 100.0 fL [facility] MCH 28.2 25.0 - 32.0 pg [facility] MCHC 30.9(L) 31.0 - 36.0 g/dL [facility] RDW 13.6 11.5 - 14.5 % [facility] Plt 287 150 - 400 k/cmm [facility] MPV 10.5 6.5 - 12.5 fL [facility] Blood 11/12/2023 11:3 6 AM CDT 11/12/2023 11:48 AM CDT Zac Churchill MD LABORATORY Performing Organization Address City/[facility]/ZIP Co de Phone Number [facility] [place] [address] * (ABNORMAL) POC GLUCOSE (11/12/2023 11:05 AM CDT) POC Glucose 147(H) 70 - 100 mg/dL [facility] Blood 11/12/2023 11:0 5 AM CDT Jessica Grullon MD LABORATORY Performing Organization Address City/[facility] Co de Phone Number [facility] [address] * (ABNORMAL) POC GLUCOSE (11/12/2023 10:09 AM CDT) POC Glucose 163(H) 70 - 100 mg/dL [facility] Blood 11/12/2023 10:0 9 AM CDT Jessica Grullon MD LABORATORY Performing Organization Address City/[facility] Co de Phone Number [facility] [address] * (ABNORMAL) POC GLUCOSE (11/12/2023 9:04 AM CDT) POC Glucose 146(H) 70 - 100 mg/dL [facility] Blood 11/12/2023 9:04 AM CDT Jessica Grullon MD LABORATORY Performing Organization Address City/[facility]/ZIP Co de Phone Number [facility] [address] [place] [address], [place] * (ABNORMAL) POC GLUCOSE (11/12/2023 8:01 AM CDT) POC Glucose 152(H) 70 - 100 mg/dL [facility] Blood 11/12/2023 8:01 AM CDT Jessica Gruloln MD LABORATORY Performing Organization Address [facility] Co de Phone Number [facility] [address] [place] [address], [place] * (ABNORMAL) POC GLUCOSE (11/12/2023 7:00 AM CDT) POC Glucose 147(H) 70 - 100 mg/dL [facility] Blood 11/12/2023 7:00 AM CDT Jessica Grullon MD LABORATORY Performing Organization Address [facility] Co de Phone Number [facility] [address] [place] [address], [place] * (ABNORMAL) POC GLUCOSE (11/12/2023 6:02 AM CDT) POC Glucose 169(H) 70 - 100 mg/dL [facility] Blood 11/12/2023 6:02 AM CDT Jessica Grullon MD LABORATORY Performing Organization Address [facility] Co de Phone Number [facility] [address] [place] [address], [place] * (ABNORMAL) POC GLUCOSE (11/12/2023 5:00 AM CDT) POC Glucose 166(H) 70 - 100 mg/dL [facility] Blood 11/12/2023 5:00 AM CDT Jessica Grullon MD LABORATORY [facility] [address] [place] [address], [place] * (ABNORMAL) POC GLUCOSE (11/12/2023 4:02 AM CDT) POC Glucose 178(H) 70 - 100 mg/dL [facility] Blood 11/12/2023 4:02 AM CDT Jessica Grullon MD LABORATORY Performing Organization Address City/[facility]/ZIP Co de Phone Number [facility] [address] [place] [address], [place] * (ABNORMAL) POC GLUCOSE (11/12/2023 3:17 AM CDT) POC Glucose 176(H) 70 - 100 mg/dL [facility] Blood 11/12/2023 3:17 AM CDT Jessica Grullon MD LABORATORY Performing Organization Address City/[facility] Co de Phone Number [facility] [address] [place] [address], [place] * (ABNORMAL) POC GLUCOSE (11/12/2023 2:14 AM CDT) POC Glucose 197(H) 70 - 100 mg/dL [facility] Blood 11/12/2023 2:14 AM CDT Jessica Grullon MD LABORATORY Performing Organization Address City/[facility]/ZIP Co de Phone Number [facility] [address] [place] [address], [place] * (ABNORMAL) POC GLUCOSE (11/12/2023 1:02 AM CDT) POC Glucose 195(H) 70 - 100 mg/dL [facility] Blood 11/12/2023 1:02 AM CDT Jessica Grullon MD LABORATORY [facility] [address] [place] [address], [place] * (ABNORMAL) POC GLUCOSE (11/12/2023 12:01 AM CDT) POC Glucose 180(H) 70 - 100 mg/dL [facility] Blood 11/12/2023 12:0 1 AM CDT Jessica Grullon MD LABORATORY Performing Organization Address City/[facility]/ZIP Co de Phone Number [facility] [address] [place] [address], [place] * (ABNORMAL) POC GLUCOSE (11/11/2023 11:01 PM CDT) POC Glucose 185(H) 70 - 100 mg/dL [facility] Blood 11/11/2023 11:0 1 PM CDT Jessica Grullon MD LABORATORY Performing Organization Address City/[facility] Co de Phone Number [facility] [address] [place] [address], [place] * (ABNORMAL) POC GLUCOSE (11/11/2023 10:00 PM CDT) POC Glucose 167(H) 70 - 100 mg/dL [facility] Blood 11/11/2023 10:0 0 PM CDT Jessica Grullon MD LABORATORY [facility] [address] [place] [address], [place] * (ABNORMAL) POC GLUCOSE (11/11/2023 9:01 PM CDT) POC Glucose 148(H) 70 - 100 mg/dL [facility] Blood 11/11/2023 9:01 PM CDT Jessica Grullon MD LABORATORY Performing Organization Address [facility] Co de Phone Number [facility] [address] [place] [phone], [place] * (ABNORMAL) POC GLUCOSE (11/11/2023 8:02 PM CDT) Pathologist [facility] POC Glucose 167(H) 70 - 100 mg/dL [facility] Blood 11/11/2023 8:02 PM CDT Jessica Grullon MD LABORATORY Performing Organization Address [facility] de Phone Number [facility] [address] [place] [address], [place] * (ABNORMAL) POC GLUCOSE (11/11/2023 7:02 PM CDT) [facility] POC Glucose 180(H) 70 - 100 mg/dL [facility] Blood 11/11/2023 7:02 PM CDT Jessica Grullon MD LABORATORY Performing Organization Address [facility] Co de Phone Number [facility] [address] [place] [address], [place] * (ABNORMAL) PANEL BASIC METABOLIC (BMP) (11/11/2023 6:42 PM CDT) Pathologist [facility] Sodium 138 135 - 148 mmol/L [facility] Potassium 4.3 3.5 - 5.3 mmol/L [facility] Chloride 103 92 - 108 mmol/L [facility] CO2 25 22 - 30 mmol/L [facility] AnGap 10 8 - 16 mmol/L [facility] Glucose 181(H) 70 - 100 mg/dL [facility] BUN 21(H) 6 - 20 mg/dL [facility] Creatinine 1.03 0.70 - 1.25 mg/dL [facility] Calcium 8.0(L) 8.6 - 10.0 mg/dL [facility] eGFR (2020 CKD-EPI) 91 >=60 ml/min/1.7 3m2 [facility] Comment: The estimated glomerular filtration rate (eGFR) was calculated using the CKD-EPI 2020 creatinine equation, which does not include race as a factor. This equation is validated in individuals 18 years of age and older, and eGFR is normalized to a body surface area of 1.73m^2. Blood 11/11/2023 6:42 PM CDT 11/11/2023 6:47 PM CDT Zac Churchill MD LABORATORY Performing Organization Address City/[facility] Co de Phone Number [facility] [place] [address] * (ABNORMAL) POC GLUCOSE (11/11/2023 6:05 PM CDT) POC Glucose 173(H) 70 - 100 mg/dL [facility] Blood 11/11/2023 6:05 PM CDT Jessica Grullon MD LABORATORY Performing Organization Address City/[facility] [place] [address], * (ABNORMAL) POC GLUCOSE (11/11/2023 5:01 PM CDT) POC Glucose 163(H) 70 - 100 mg/dL [facility] Blood 11/11/2023 5:01 PM CDT Jessica Grullon MD LABORATORY Performing Organization Address City/[facility] [place] [address], * (ABNORMAL) POC GLUCOSE (11/11/2023 3:47 PM CDT) POC Glucose 138(H) 70 - 100 mg/dL [facility] Blood 11/11/2023 3:47 PM CDT Jessica Grullon MD LABORATORY [facility] [address] [place] [address], [place] * (ABNORMAL) POC GLUCOSE (11/11/2023 3:00 PM CDT) POC Glucose 147(H) 70 - 100 mg/dL [facility] Blood 11/11/2023 3:00 PM CDT Jessica Grullon MD LABORATORY Performing Organization Address City/[facility] Co de Phone Number [facility] [address] [place] [address], [place] * (ABNORMAL) POC GLUCOSE (11/11/2023 2:12 PM CDT) POC Glucose 147(H) 70 - 100 mg/dL [facility] Blood 11/11/2023 2:12 PM CDT Jessica Grullon MD LABORATORY Performing Organization Address City/[facility] Co de Phone Number [facility] [address] [place] [address], [place] * (ABNORMAL) POC GLUCOSE (11/11/2023 1:02 PM CDT) POC Glucose 126(H) 70 - 100 mg/dL [facility] Blood 11/11/2023 1:02 PM CDT Jessica Grullon MD LABORATORY [facility] [address] [place] [address], [place] * (ABNORMAL) POC GLUCOSE (11/11/2023 12:01 PM CDT) POC Glucose 141(H) 70 - 100 mg/dL [facility] Blood 11/11/2023 12:0 1 PM CDT Jessica Grullon MD LABORATORY [facility] [address] [place] [id number], [place] * (ABNORMAL) POC GLUCOSE (11/11/2023 11:03 AM CDT) POC Glucose 163(H) 70 - 100 mg/dL [facility] Blood 11/11/2023 11:0 3 AM CDT Jessica Grullon MD LABORATORY Performing Organization Address City/[facility] Co de Phone Number [facility] [address] [place] [id number], [place] * (ABNORMAL) POC GLUCOSE (11/11/2023 9:59 AM CDT) POC Glucose 170(H) 70 - 100 mg/dL [facility] Blood 11/11/2023 9:59 AM CDT Jessica Grullon MD LABORATORY Performing Organization Address City/[facility]/ZIP Co de Phone Number [facility] [address] [place] [address], [place] * (ABNORMAL) POC GLUCOSE (11/11/2023 8:56 AM CDT) POC Glucose 166(H) 70 - 100 mg/dL [facility] [facility] Blood 11/11/2023 8:56 AM CDT Jessica Grullon MD LABORATORY Performing Organization Address City/[facility]/ZIP Co de Phone Number [facility] [address] [place] [phone], * (ABNORMAL) POC GLUCOSE (11/11/2023 8:01 AM CDT) [facility] POC Glucose 172(H) 70 - 100 mg/dL [facility] Blood 11/11/2023 8:01 AM CDT Jessica Grullon MD LABORATORY Performing Organization Address City/[facility]/ZIP Co de Phone Number [facility] POINT OF CARE [address] [place] [phone], * ICU PHOSPHORUS (11/11/2023 5:36 AM CDT) [facility] Phosphorus 2.9 2.5 - 4.5 mg/dL [facility] Blood 11/11/2023 5:36 AM CDT 11/11/2023 5:45 AM CDT Zac Churchill MD LABORATORY Performing Organization Address City/[facility]/ZIP Co de Phone Number [facility] [address] [address] * (ABNORMAL) ICU MAGNESIUM (11/11/2023 5:36 AM CDT) [facility] Magnesium 1.2(L) 1.6 - 2.6 mg/dL [facility] Blood 11/11/2023 5:36 AM CDT 11/11/2023 5:45 AM CDT Zac Churchill MD LABORATORY Performing Organization Address City/[facility]/ZIP Co de Phone Number [facility] [address] [address] * (ABNORMAL) ICU CBC WITH PLTS/AUTO DIFF (11/11/2023 5:36 AM CDT) [facility] WBC 17.41(H) 4.00 - 10.00 k/cmm [facility] RBC 2.72(L) 4.60 - 6.00 m/cmm [facility] Hgb 7.8(L) 13.1 - 17.5 g/dL [facility] Hematocrit 24.1(L) 40.0 - 51.0 % [facility] MCV 88.6 80.0 - 100.0 fL [facility] MCH 28.7 25.0 - 32.0 pg [facility] MCHC 32.4 31.0 - 36.0 g/dL [facility] RDW 13.2 11.5 - 14.5 % [facility] Plt 203 150 - 400 k/cmm [facility] MPV 10.1 6.5 - 12.5 fL [facility] Automated Abs Neutrophil 13.29(H) 1.70 - 6.50 k/cmm [facility] Comment:Preliminary ANC, Fin al Result to Follow Judy Cell Slight [facility] Toxic Gran Present [facility] Toxic Vac Present [facility] Abs Neutrophil 13.41(H) 1.70 - 6.50 k/cmm [facility] Abs Lymphocyte 2.96 0.80 - 4.00 k/cmm [facility] Abs Monocyte 0.87 0.20 - 1.00 k/cmm [facility] Abs Basophil 0.17 0.00 - 0.20 k/cmm [facility] Blood 11/11/2023 5:36 AM CDT 11/11/2023 5:45 AM CDT Zac Churchill MD LABORATORY [facility] [address] [address] * (ABNORMAL) ICU PANEL BASIC METABOLIC (BMP) (11/11/2023 5:36 AM CDT) AnGap 9 8 - 16 mmol/L [facility] BUN 15 6 - 20 mg/dL [facility] Calcium 6.0(AA) 8.6 - 10.0 mg/dL [facility] Comment:Critical Result Low Chloride 108 92 - 108 mmol/L [facility] CO2 22 22 - 30 mmol/L [facility] Glucose 135(H) 70 - 100 mg/dL [facility] Creatinine 0.93 0.70 - 1.25 mg/dL [facility] Potassium 3.2(L) 3.5 - 5.3 mmol/L [facility] eGFR (2020 CKD-EPI) 103 >=60 ml/min/1.7 3m2 [facility] Comment: The estimated glomerular filtration rate (eGFR) was calculated using the CKD-EPI 2020 creatinine equation, which does not include race as a factor. This equation is validated in individuals 18 years of age and older, and eGFR is normalized to a body surface area of 1.73m^2. Sodium 139 135 - 148 mmol/L [facility] Blood 11/11/2023 5:36 AM CDT 11/11/2023 5:45 AM CDT Narrative [facility] - 11/11/2023 6:25 AM CDT Critical value for Calcium called to and read back by Sheila Dias RN in STN4 at 11/11/2023 06:24:12 CDT by Larry Fuchs MLS. Zac Churchill MD LABORATORY Performing Organization Address City/[facility]/ZIP Co de Phone Number [facility] [place] [address] * (ABNORMAL) POC GLUCOSE (11/11/2023 5:28 AM CDT) POC Glucose 149(H) 70 - 100 mg/dL [facility] Blood 11/11/2023 5:28 AM CDT Jessica Grullon MD LABORATORY Performing Organization Address [facility] Co de Phone Number [facility] [address] [place] [address], [place] * (ABNORMAL) POC GLUCOSE (11/11/2023 4:29 AM CDT) POC Glucose 159(H) 70 - 100 mg/dL [facility] Blood 11/11/2023 4:29 AM CDT Jessica Grullon MD LABORATORY Performing Organization Address [facility]/ZIP Co de Phone Number [facility] [address] [place] [address], [place] * (ABNORMAL) POC GLUCOSE (11/11/2023 3:28 AM CDT) POC Glucose 153(H) 70 - 100 mg/dL [facility] Blood 11/11/2023 3:28 AM CDT Jessica Grullon MD LABORATORY Performing Organization Address City/[facility] Co de Phone Number [facility] [address] [place] [phone], [place] * (ABNORMAL) POC GLUCOSE (11/11/2023 2:18 AM CDT) POC Glucose 172(H) 70 - 100 mg/dL [facility] Blood 11/11/2023 2:18 AM CDT Jessica Grullon MD LABORATORY Performing Organization Address City/[facility] Co de Phone Number [facility] [address] [place] [address], [place] * (ABNORMAL) POC GLUCOSE (11/11/2023 1:03 AM CDT) POC Glucose 171(H) 70 - 100 mg/dL [facility] Blood 11/11/2023 1:03 AM CDT Jessica Grullon MD LABORATORY Performing Organization Address City/[facility] Co de Phone Number [facility] [address] [place] [address], [place] * (ABNORMAL) POC GLUCOSE (11/10/2023 11:50 PM CDT) POC Glucose 201(H) 70 - 100 mg/dL [facility] Blood 11/10/2023 11:5 0 PM CDT Jessica Grullon MD LABORATORY Performing Organization Address City/[facility]/ZIP Co de Phone Number [facility] [address] [place] [address], * (ABNORMAL) POC GLUCOSE (11/10/2023 10:39 PM CDT) POC Glucose 192(H) 70 - 100 mg/dL [facility] Blood 11/10/2023 10:3 9 PM CDT Jessica Grullon MD LABORATORY Performing Organization Address City/[facility]/ZIP Co de Phone Number [facility] [address] [place] [phone], [place] * (ABNORMAL) TROP 6H (11/10/2023 10:15 PM CDT) 6H Trop 35 <=35 ng/L [facility] 6H Delta Significan t(A) Not Significant [facility] Blood 11/10/2023 10:1 5 PM CDT 11/10/2023 10:31 PM CDT Jessica Grullon MD LABORATORY Performing Organization Address City/[facility]/ZIP Co de Phone Number [facility] [address] [place] [phone] * (ABNORMAL) POC GLUCOSE (11/10/2023 9:36 PM CDT) POC Glucose 200(H) 70 - 100 mg/dL [facility] Blood 11/10/2023 9:36 PM CDT Jessica Grlulon MD LABORATORY [facility] [address] [place] [phone], * (ABNORMAL) POC GLUCOSE (11/10/2023 8:17 PM CDT) POC Glucose 221(H) 70 - 100 mg/dL [facility] Blood 11/10/2023 8:17 PM CDT Jessica Grullon MD LABORATORY Performing Organization Address [facility] Co de Phone Number [address] [address], * (ABNORMAL) POC GLUCOSE (11/10/2023 7:07 PM CDT) POC Glucose 227(H) 70 - 100 mg/dL [facility] Blood 11/10/2023 7:07 PM CDT Jessica Grullon MD LABORATORY Performing Organization Address [facility] [place] [address], [place] * (ABNORMAL) TROP 2H (11/10/2023 6:34 PM CDT) 2H Trop 21 <=35 ng/L [facility] 2H Delta Significan t(A) Not Significant [facility] Blood 11/10/2023 6:34 PM CDT 11/10/2023 6:37 PM CDT Jessica Grullon MD LABORATORY Performing Organization Address [facility] Co de Phone Number [facility] [address] [address] * (ABNORMAL) LACTATE (LACTIC ACID) (11/10/2023 6:34 PM CDT) Lactate 14.6(H) 0.7 - 2.1 mmol/L [facility] Blood 11/10/2023 6:34 PM CDT 11/10/2023 6:37 PM CDT Narrative [facility] - 11/10/2023 6:41 PM CDT Send specimen on ice! Jessica Grullon MD LABORATORY Performing Organization Address City/[facility]/ZIP Co de Phone Number [facility] [address] [address] * (ABNORMAL) POC GLUCOSE (11/10/2023 6:07 PM CDT) POC Glucose 201(H) 70 - 100 mg/dL [facility] Blood 11/10/2023 6:07 PM CDT Jessica Grullon MD LABORATORY Performing Organization Address [facility] de Phone Number [facility] [address] [place] [address], * (ABNORMAL) POC GLUCOSE (11/10/2023 5:30 PM CDT) POC Glucose 197(H) 70 - 100 mg/dL [facility] Blood 11/10/2023 5:30 PM CDT Jessica Grullon MD LABORATORY Performing Organization Address [facility] de Phone Number [facility] [address] [place] [phone], [place] * M TUBERCULOSIS AMPLIFICATION (11/10/2023 5:13 PM CDT) Final Report M. tuberculosis complex DNA not detected. [facility] Tissue STRUCTURE OF PERINEAL BODY / Unknown 11/10/2023 5:13 PM CDT 11/11/2023 10:50 AM CDT Comment:2:Perineal tissue Narrative [facility] - 11/11/2023 3:22 PM CDT This assay uses PCR nucleic acid amplification to detect Mycobacterium tuberculosis complex DNA. ??This test was developed and its performance characteristics determined by [facility]. ??It has not been cleared or approved by the U.S. Food and Drug Administration. ??FDA does not require this test to go through premarket FDA review. ??This test is used for clinical purposes. ??It should not be regarded as investigational or for research. ??[facility] is certified under the Clinical Laboratory Improvement Amendments of 1988 (CLIA) as qualified to perform high complexity clinical laboratory testing. Zac Churchill MD LAB MICROBIOLOGY Performing Organization Address [facility] Co de Phone Number [facility] [address] [phone] * (ABNORMAL) TISSUE CULTURE:INCLUDES GRAM STAIN (11/10/2023 5:13 PM CDT) Final Report Positive Culture Rare Actinomyces species isolated. Most closely resembles Actinomyces hominis. Rare Staphylococcus pettenkoferi isolated. A member of the coagulase-negative Staphylococci. Staphylococcus epidermidis isolated in broth only. No further work-up. Plates held one week. (POS) [facility] Organism ACTINOMYCES SPECIES(POS) [facility] Organism STAPHYLOCOCCUS PETTENKOFERI(POS) [facility] Organism STAPHYLOCOCCUS EPIDERMIDIS(POS) [facility] Gram Stain Report Positive Gram stain Gram stain electronically reported to and acknowledged by: Fermin Osborn MD for Burn on 11/10/2023 18:43:03 by Silver Luna MLS Rare WBC's seen. Many gram positive cocci in clusters. (POS) [facility] Tissue STRUCTURE OF PERINEAL BODY / Unknown 11/10/2023 5:13 PM CDT Zac Churchill MD LAB MICROBIOLOGY Performing Organization Address [facility] Co de Phone Number [facility] [address] [address] * FUNGUS CULTURE:INCLUDES SUHAS (11/10/2023 5:13 PM CDT) Final Report No fungus isolated. [facility] SUHAS Prep No fungal elements seen. [facility] Tissue STRUCTURE OF PERINEAL BODY / Unknown 11/10/2023 5:13 PM CDT Zac Churchill MD LAB MICROBIOLOGY Performing Organization Address [facility] Co de Phone Number [facility] [address] [address] * (ABNORMAL) ANAEROBE CULTURE (11/10/2023 5:13 PM CDT) Final Report Positive Culture Many mixed anaerobes present. (POS) [facility] Tissue STRUCTURE OF PERINEAL BODY / Unknown 11/10/2023 5:13 PM CDT Zac Churchill MD LAB MICROBIOLOGY Performing Organization Address [facility] Co de Phone Number [facility] [address] [address] * AFB CULTURE:INCLUDES AFB SMEAR (11/10/2023 5:13 PM CDT) Final Report No acid fast bacilli isolated. [facility] Acid Fast Stain No acid fast bacilli seen. [facility] Tissue STRUCTURE OF PERINEAL BODY / Unknown 11/10/2023 5:13 PM CDT Zac Churchill MD LAB MICROBIOLOGY Performing Organization Address [facility] Co de Phone Number [facility] [address] [address] * (ABNORMAL) WOUND CULTURE:GRAM STAIN OPTIONAL (11/10/2023 5:12 PM CDT) Final Report Rare Actinomyces species isolated. Most closely resembles Actinomyces hominis. One colony Staphylococcus epidermidis isolated. (POS) [facility] Organism ACTINOMYCES SPECIES(POS) [facility] Organism STAPHYLOCOCCUS EPIDERMIDIS(POS) [facility] Gram Stain Report Many WBC's seen. Many gram positive cocci in clusters. [facility] Swab STRUCTURE OF PERINEAL BODY / Unknown 11/10/2023 5:12 PM CDT Narrative [facility] - 11/12/2023 3:34 PM CDT Do you want a gram stain: No Zac Churchill MD LAB MICROBIOLOGY Performing Organization Address [facility] Co de Phone Number [facility] [address] [address] * FUNGUS CULTURE:INCLUDES SUHAS (11/10/2023 5:12 PM CDT) Final Report No fungus isolated. [facility] SUHAS Prep No fungal elements seen. [facility] Swab STRUCTURE OF PERINEAL BODY / Unknown 11/10/2023 5:12 PM CDT Zac Churchill MD LAB MICROBIOLOGY Performing Organization Address [facility] Co de Phone Number [facility] [address] [address] * ANAEROBE CULTURE (11/10/2023 5:12 PM CDT) Final Report Moderate mixed anaerobes present. [facility] Swab STRUCTURE OF PERINEAL BODY / Unknown 11/10/2023 5:12 PM CDT Zac Churchill MD LAB MICROBIOLOGY Performing Organization Address [facility] Co de Phone Number [facility] [address] [address] * (ABNORMAL) POC GLUCOSE (11/10/2023 4:28 PM CDT) POC Glucose 236(H) 70 - 100 mg/dL [facility] Blood 11/10/2023 4:28 PM CDT Jessica Grullon MD LABORATORY Performing Organization Address [facility] Co de Phone Number [facility] [address] [address], * ED EKG (12-LEAD) (11/10/2023 3:21 PM CDT) 11/10/2023 3:21 PM CDT Impressions [facility] EKG ORDERS - 11/10/2023 3:21 PM CDT SINUS TACHYCARDIA MINIMAL ST DEPRESSION ??[0.025+ mV ST DEPRESSION] ABNORMAL QRS-T ANGLE ??[QRS-T AXIS DIFFERENCE > 60] NONSPECIFIC ST AND T WAVE ABNORMALITY. ABNORMAL ECG P-R Interval 138 ms QRS Interval 90 ms QT Interval 348 ms QTC Interval 405 ms P [place] 35 QRS [place] 1 T Wave [place] 148 Narrative Procedure Note Jessica Grullon MD - 11/10/2023 IMPRESSION SINUS TACHYCARDIA MINIMAL ST DEPRESSION [0.025+ mV ST DEPRESSION] ABNORMAL QRS-T ANGLE [QRS-T AXIS DIFFERENCE > 60] NONSPECIFIC ST AND T WAVE ABNORMALITY. 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 ??No initial report accompanied the patient and/or Dr. ??JESSICA GRULLON requested an interpretation by me. Technique: ??CT scan of the left lower extremity done on 11/10/2023 with IV contrast. 2 mm axial, sagittal and coronal reconstructions reviewed in soft tissue and bone windows, per the local institution's scanning protocols, which may differ from the [facility] trauma protocols. Findings: ??Subcutaneous emphysema within the [...] CHERELLE - 11/10/2023 Indication: Patient transferred from [facility] due toFournier's gangrene. No initial report accompanied the patient and/or Dr.ROCHELLE GRULLON requested an interpretation by me. Technique: CT scan of the left lower extremity done on 11/10/2023 with IVcontrast. 2 mm axial, sagittal and coronal reconstructions reviewed insoft tissue and bone windows, per the local institution's scanningprotocols, which may differ from the [facility] trauma protocols. 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 ??No initial report accompanied the patient and/or Dr. ??JESSICA GRULLON requested an interpretation by me. Technique: ??CT scan of the abdomen/pelvis done on 11/10/2023 ??with IV contrast. ??3 mm axial, sagittal and coronal reconstructions reviewed in soft tissue and bone windows, per the local institution's scanning protocols, which may differ from the [facility] trauma protocols. Comparison: Same day scrotal ultrasound. [...] MBBS - 11/10/2023 Indication: Patient transferred from [facility] due toFournier's gangrene. No initial report accompanied the patient and/or Dr.ROCHELLE GRULLON requested an interpretation by me. Technique: CT scan of the abdomen/pelvis done on 11/10/2023 with IVcontrast. 3 mm axial, sagittal and coronal reconstructions reviewed insoft tissue and bone windows, per the local institution's scanningprotocols, which may differ from the [facility] trauma protocols. Comparison: Same day scrotal ultrasound. [...] (11/10/2023 2:40 PM CDT) Color YELLOW YELLOW [facility] Appearance CLEAR CLEAR [facility] Urine Glucose >=1000(A) NEGATIVE mg/dL [facility] Bili UA NEGATIVE NEGATIVE [facility] Ketones TRACE(A) NEGATIVE [facility] Blood Ur LARGE(A) Neg-Trace [facility] PH Urine 6.5 5.0 - 7.0 [facility] Protein Ur >=600(A) Neg-Trace [facility] Urobilinogen NORMAL NORMAL EU/dL [facility] Nitrite Ur NEGATIVE NEGATIVE [facility] Leuk Est NEGATIVE Neg-Trace [facility] WBC Ur 0-5 0 - 5 perHPF [facility] RBC Ur 11-20(A) 0 - 3 perHPF [facility] SQ EPITH 0-5 0 - 5 perHPF [facility] Mucus 1+ perLPF [facility] Bacteria UA PRESENT [facility] Comment:Presence of bacteria does not necessarily indicate a UTI. The presence of bacteria can indicate a non-clean catch urine specimen. Bacteria should be used in conjunction with other UA results and clinical presentation to assist in diagnosing an infection. Urinalysis Performed at: [facility] Specific [place] 1.020 1.003 - 1.030 [facility] Urine 11/10/2023 2:40 PM CDT 11/10/2023 2:47 PM CDT Jessica Grullon MD LABORATORY Performing Organization Address City/[facility]/ZIP Co de Phone Number [facility] [address] [address] * BLOOD AEROBIC/ANAEROBIC CULTURE (11/10/2023 2:39 PM CDT) Final Report No growth after 5 days. [facility] Blood (Peripheral) 11/10/2023 2:39 PM CDT 11/10/2023 4:09 PM CDT Jessica Grullon MD LAB MICROBIOLOGY Performing Organization Address City/[facility]/ZIP Co de Phone Number [facility] [address] [address] * BLOOD AEROBIC/ANAEROBIC CULTURE (11/10/2023 2:37 PM CDT) Final Report No growth after 5 days. [facility] Blood (Peripheral) 11/10/2023 2:37 PM CDT 11/10/2023 4:09 PM CDT Jessica Grullon MD LAB MICROBIOLOGY Performing Organization Address [facility] Co de Phone Number [facility] [address] [address] * (ABNORMAL) SED RATE (ESR) (11/10/2023 2:31 PM CDT) Pathologist [facility] Sed Rate 120(H) 2 - 10 mm/hr [facility] Blood 11/10/2023 2:31 PM CDT 11/10/2023 2:57 PM CDT Jessica Grullon MD LABORATORY Performing Organization Address [facility] de Phone Number [facility] [address] [address] * EXTRA TUBE - SST (11/10/2023 2:31 PM CDT) Pathologist [facility] SST TUBE Stored [facility] Comment:SST tubes (Serum Sep arator) are stored in the lab for 3 days from the collection date. Blood 11/10/2023 2:31 PM CDT 11/10/2023 2:43 PM CDT Jessica Grullon MD LABORATORY Performing Organization Address [facility] de Phone Number [facility] [address] [address] * (ABNORMAL) HS TROPONIN (11/10/2023 2:31 PM CDT) Pathologist [facility] HS Troponin I 49(H) <=35 ng/L [facility] Blood 11/10/2023 2:31 PM CDT 11/10/2023 2:57 PM CDT Narrative [facility] - 11/10/2023 3:25 PM CDT First Occurrence of the Troponin order is to be drawn Stat by Nursing staff on the unit. Jessica Grullon MD LABORATORY Performing Organization Address [facility] Co de Phone Number [facility] [address] [address] * ETHANOL (ETOH) LEVEL, BLOOD (11/10/2023 2:31 PM CDT) Ethanol Negative Negative g/dL [facility] Blood 11/10/2023 2:31 PM CDT 11/10/2023 2:57 PM CDT Jessica Grullon MD LABORATORY Performing Organization Address [facility] Co de Phone Number [facility] [address] [address] * PTT (APTT) (11/10/2023 2:31 PM CDT) APTT 32.9 25.0 - 37.0 sec [facility] Blood 11/10/2023 2:31 PM CDT 11/10/2023 2:57 PM CDT Jessica Grullon MD LABORATORY Performing Organization Address [facility] de Phone Number [facility] [address] [address] * ED INR (11/10/2023 2:31 PM CDT) ED INR 1.1 0.8 - 1.1 [facility] Comment: Warfarin Therapeutic Range: Standard Intensity: 2.0 - 3.0 High Intensity: 2.5 - 3.5 This is a rapid INR screening test which uses whole blood; results may infrequently differ from plasma INR results. If medication adjustments/dosing are required a PT/INR test ([id number]) should be ordered and performed in the main laboratory. Blood 11/10/2023 2:31 PM CDT 11/10/2023 2:41 PM CDT Jessica Grullon MD LABORATORY Performing Organization Address [facility] Co de Phone Number [facility] [address] [address] * (ABNORMAL) LACTATE (LACTIC ACID) (11/10/2023 2:31 PM CDT) [facility] Lactate 2.3(H) 0.7 - 2.1 mmol/L [facility] Blood 11/10/2023 2:31 PM CDT 11/10/2023 2:45 PM CDT Narrative [facility] - 11/10/2023 2:49 PM CDT Send specimen on ice! Jessica Grullon MD LABORATORY Performing Organization Address [facility] Co de Phone Number [facility] [address] [address] * (ABNORMAL) FIBRINOGEN (11/10/2023 2:31 PM CDT) [facility] Fibrinogen >1,000(H) 200 - 400 mg/dL [facility] Blood 11/10/2023 2:31 PM CDT 11/10/2023 2:57 PM CDT Jessica Grullon MD LABORATORY Performing Organization Address [facility] Co de Phone Number [facility] [address] [address] * (ABNORMAL) PANEL HEPATIC FUNCTION (11/10/2023 2:31 PM CDT) [facility] Total Protein 7.1 6.4 - 8.3 g/dL [facility] Albumin 2.9(L) 3.8 - 5.1 g/dL [facility] Bili Total 0.3 <=1.2 mg/dL [facility] Bili Direct <0.2 <=0.3 mg/dL [facility] Alk Phos 104 40 - 129 IU/L [facility] Comment:No reference range e stablished for patients <18 years old. ALT (SGPT) 9 <=41 IU/L [facility] AST(SGOT) 14 5 - 40 IU/L [facility] Blood 11/10/2023 2:31 PM CDT 11/10/2023 2:57 PM CDT Jessica Grullon MD LABORATORY [facility] [address] [address] * (ABNORMAL) ED HEMOGLOBIN TOTAL (ED ONLY) (11/10/2023 2:31 PM CDT) Hgb 12.4(L) 13.1 - 17.5 g/dL [facility] Blood 11/10/2023 2:31 PM CDT 11/10/2023 2:45 PM CDT Jessica Grullon MD LABORATORY Performing Organization Address City/[facility] Co de Phone Number [facility] [address] [address] * (ABNORMAL) ED CHEMISTRY LABS(NA,K,CL,CO2,GLU,CREAT,CA-IONIZED,ANION GAP) (11/10/2023 2:31 PM CDT) Sodium 133(L) 135 - 148 mmol/L [facility] Potassium 3.7 3.5 - 5.3 mmol/L [facility] Chloride 93 92 - 108 mmol/L [facility] AnGap 12 8 - 16 mmol/L [facility] Glucose 304(H) 70 - 100 mg/dL [facility] ICA, Actual 4.14(L) 4.40 - 5.20 mg/dL [facility] ICA, pH Corrected 4.29(L) 4.40 - 5.20 mg/dL [facility] Creatinine 0.98 0.70 - 1.25 mg/dL [facility] BICARB 27(H) 22 - 26 mEq/L [facility] eGFR (2020 CKD-EPI) 97 >=60 ml/min/1.7 3m2 [facility] Comment: The estimated glomerular filtration rate (eGFR) was calculated using the CKD-EPI 2020 creatinine equation, which does not include race as a factor. This equation is validated in individuals 18 years of age and older, and eGFR is normalized to a body surface area of 1.73m^2. Blood 11/10/2023 2:31 PM CDT 11/10/2023 2:45 PM CDT Jessica Grullon MD LABORATORY [facility] [address] [address] * (ABNORMAL) CBC WITH PLTS/AUTO DIFF (11/10/2023 2:31 PM CDT) WBC 21.95(H) 4.00 - 10.00 k/cmm [facility] RBC 4.26(L) 4.60 - 6.00 m/cmm [facility] Hgb 12.0(L) 13.1 - 17.5 g/dL [facility] Hematocrit 36.3(L) 40.0 - 51.0 % [facility] MCV 85.2 80.0 - 100.0 fL [facility] MCH 28.2 25.0 - 32.0 pg [facility] MCHC 33.1 31.0 - 36.0 g/dL [facility] RDW 12.9 11.5 - 14.5 % [facility] Plt 262 150 - 400 k/cmm [facility] MPV 10.1 6.5 - 12.5 fL [facility] Automated Abs Neutrophil 18.29(H) 1.70 - 6.50 k/cmm [facility] Comment:Preliminary ANC, Fin al Result to Follow Abs Immature Granulocyte 0.26(H) 0.00 - 0.09 k/cmm [facility] Comment:The Immature Granulo cyte Absolute count contains metamyelocytes and myelocytes. Abs Neutrophil 18.29(H) 1.70 - 6.50 k/cmm [facility] Abs Lymphocyte 1.53 0.80 - 4.00 k/cmm [facility] Abs Monocyte 1.83(H) 0.20 - 1.00 k/cmm [facility] Abs Eosinophil 0.00 0.00 - 0.60 k/cmm [facility] Abs Basophil 0.04 0.00 - 0.20 k/cmm [facility] Polychromasia Slight [facility] Dohle Body Present [facility] Toxic Vac Present [facility] Blood 11/10/2023 2:31 PM CDT 11/10/2023 2:57 PM CDT Jessica Grullon MD LABORATORY Performing Organization Address City/[facility]/ZIP Co de Phone Number [facility] [address] [address] * (ABNORMAL) BLOOD GASES (11/10/2023 2:31 PM CDT) PH Mayo 7.47(H) 7.32 - 7.42 [facility] PCO2 Mayo 38(L) 41 - 51 mmHG [facility] PO2 Mayo 75(H) 25 - 40 mmHG [facility] Bicarb Mayo 27 24 - 28 mEq/L [facility] O2 Sat Mayo 96 % [facility] Base Exc Mayo 3.7(H) -10.0 - 2.0 mmol/L [facility] Blood Venous 11/10/2023 2:31 PM CDT 11/10/2023 2:45 PM CDT Jessica Grullon MD LABORATORY Performing Organization Address [facility]/ZIP Co de Phone Number [facility] [address] [address] * ANTIBODY SCREEN (11/10/2023 2:29 PM CDT) Lilly Screen Negative [facility] Blood 11/10/2023 2:29 PM CDT 11/10/2023 2:49 PM CDT Jessica Grullon MD LAB TRANSFUSION SER VICES Performing Organization Address City/[facility]/ZIP Co de Phone Number [facility] [address] [address] * BLOOD TYPING-ABO/RH (11/10/2023 2:29 PM CDT) ABORHG A POS [facility] Blood 11/10/2023 2:29 PM CDT 11/10/2023 2:49 PM CDT Jessica Grullon MD LAB TRANSFUSION SER VICES Performing Organization Address City/[facility]/ZIP Co de Phone Number [facility] [address] [address] * PRECAUTIONARY TUBE (11/10/2023 2:29 PM CDT) Prec Tube Precautionary Blood Bank Specimen Received. [facility] Blood 11/10/2023 2:29 PM CDT 11/10/2023 2:49 PM CDT Jessica Grullon MD LAB TRANSFUSION SER VICES Performing Organization Address [facility] Co de Phone Number [facility] [address] [address] * ED US CRITICAL CARE (11/10/2023 2:28 PM CDT) Anatomical Region Laterality Modality Ultrasound Narrative 11/10/2023 3:16 PM CDT ED Critical Care Resuscitative Ultrasound ED Cardiac Ultrasound Body Areas Imaged: Heart, Chest Wall/Lungs, and Inferior Vena Cava Indications:Shock/Sepsis Window: Subxiphoid, Parasternal Short [place], Parasternal Long [place], Apical 4-Chamber, and Bilateral Lungs Findings: The [...] 11/22/2023 8:35 PM CDT 20 mg heparin 28112 UNITS/mL injection 7,500 UNITS 7,500 UNITS, Subcutaneous, [...] modification) on Wed11/11/23 at 1030, Until Discontinued 0904 (Given - Provider: John Taylor RN)142 (Given [...] (Given - Provider: Sheila Dias RN) heparin 08815 UNITS/mL injection 7,500 UNITS 7,500 UNITS, Subcutaneous, Q 8H, First dose on Wed11/17/23 at 1505, Until Discontinued 0553 (Given - Provider: Mabel Mathews, RN)1424 (Given - Provider: Demetra Brito RN)2304 (Given - Provider: Irene Min, RN) 0603 (Given - Provider: Deja Vasquez, SABINE)1429 (Given - Provider: Demetra Brito RN)2224 (Given - Provider: Sheila Dias, SABINE) 0646 (Given - Provider: Sheila Dias, RN) [...] dose on Wed11/15/23 at 0800, Until Discontinued 938 (Not Given (removes Due time) - Provider: Demetra Brito RN - Reason: Held per nurse)2029 (Given - Provider: Irene Min RN) 075 (Given - Provider: Demetra Brito RN)2018 (Given - Provider: Sheila Dias RN) 0849 (Given - Provider: Kate Harmon, RN) polyethylene glycol 3350 (MIRALAX;GLYCOLAX) packet 17 g 17 g, Oral, DAILY, First dose on Wed11/11/23 at 0800, Until Discontinued 938 (Not Given (removes Due time) - Provider: Demetra Brito RN - Reason: Patient refused) 750 (Not Given (removes Due time) - Provider: [...] dose on Wed11/12/23 at 2000, Until Discontinued 2030 (Given - Provider: Irene Min, SABINE) 2014 (Given - Provider: Sheila Dias, RN) PRN Medication Order 11/23/2023 11/24/2023 11/25/2023 [...] RN)2015 (Given - Provider: Sheila Dias, RN) normal saline flush 0.9 % solution [...] Wed11/25/23 at 1502, Moderate Pain (Use First) 0908 (Given - Provider: John Taylor, SABINE)1424 (Given - Provider: Demetra Brito, SABINE) 2024 (Given - Provider: Sheila Dias, RN) 0952 (Given - Provider: Kate Harmon, RN) [...]
--- OUTSIDE RECORDS SUMMARY | 2024-02-14 09:11 | XMS_ITS | Clinical Summary ---
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 1 Each 07/24/19 23 Active durable medical equipment (DME)Indications:F ollow-up examination after orthopedic surgery,Osteomyeli tis of right foot, unspecified type (HC),Diabetic ulcer of right midfoot associated with type 2 diabetes mellitus, with necrosis of muscle (HC) SQUARED TOE POST OP SHOE, LARGE, REF: [phone] 1 Each 10/15/19 23 Active ondansetron (ZOFRAN [...] SQUARED TOE POST OP SHOE, LARGE, REF: [phone] 1 Each 12/31/19 23 Active acetaminophen (TYLENOL [...] doses. 75 Each 10/27/19 24 Active transmitter ([employer] G6 Transmitter) for continuous blood glucose monitor [...] Discontinued(Du plicate therapy (E-cancel not sent)) transmitter ([employer] G6 Transmitter) for continuous blood glucose monitor [...] Description 02/02/2024 3:20 PM CDT Office Visit [facility] [address] [place] [facility] [place] [address] Jose R Foster MD Diabetes; Hospital F/U ([facility] 12/07/23, left foot); Wound Check (groin) 02/02/2024 Travel 01/25/2024 1:30 PM CDT Office Visit [facility] [address] [place] [address] Trey Kim MD Follow Up; Medication Management (feeling, good. I'm sad, because my taxi tickets didn't come in yet. And my back is really sore) 01/25/2024 Travel 01/24/2024 Refill [facility] [address] [place] [address] Jose R Foster MD Refill Request (Dexcom G6 Transmitter) from Last 3 Months Immunizations Name Administration [...] 02/02/2024 3:22 PM CDT Plan of Treatment Upcoming Encounters Date Type Department Care Team (Late st Contact Info) Description 05/11/2024 10:50 AM CARE TAKER Office Visit [facility] [address] [place] [address] VoJose R penny MD [address] [place] [address] Health Maintenance Due Date Last Done Comments HIV for age 15-65 1993 Hepatitis C screening for ag e 18-79 02/09/1996 Hepatitis B series for Diabe chuck (1 of 3 - 19+ 3-dose series) 1997 Colonoscopy through age 75 2023 COVID-19 vaccine series (2023- season) 2024 08/19/2023, 02/22/2023 Influenza for age [...] without long-term current use of insulin (HC) LIPID PANEL W REFLEX MEASURED LDL Routine 07/27/2023 2:22 PM CDT Long-term use of high-risk medication from Last 3 Months or Most Recently Relevant to Health Maintenance Results * (ABNORMAL) HEMOGLOBIN A1C MONITORING (POCT) (02/02/2024 3:14 PM CDT) POC HEMOGLOBIN A1C 10.0(H) <6.0 % OF TOTAL HGB [facility] Comment: Any point of care results exhibiting inconsistency with the patient's clinical status should be repeated using a different testing method. Blood BLOOD SPECIMEN / Unknown 02/02/2024 3:14 PM CDT 02/02/2024 3:14 PM CDT Jose R Foster MD CHEMISTRY [facility] [address] [place] [address], [facility] [address] [place] [address] * (ABNORMAL) CBC WITH AUTO DIFFERENTIAL (02/02/2024 3:13 PM CDT) WHITE BLOOD CELL COUNT 11.6(H) 3.8 - 10.8 Thousand/u L [facility] RED BLOOD CELL COUNT 4.56 4.20 - 5.80 Million/uL [facility] HEMOGLOBIN 12.8(L) 13.2 - 17.1 g/dL [facility] HEMATOCRIT 40.2 38.5 - 50.0 % [facility] MCV 88.2 80.0 - 100.0 fL [facility] MCH 28.1 27.0 - 33.0 pg [facility] [...] PM CDT Jose R Foster MD HEMATOLOGY Wi[facility] [address] [place] [address], [facility] [address] [place] [address] * (ABNORMAL) BASIC METABOLIC PANEL (02/02/2024 3:13 PM CDT) GLUCOSE 326(H) 65 - 99 mg/dL [facility] Comment: ? Fasting reference interval For someone without known diabetes, a glucose value >125 mg/dL indicates that they may have diabetes and this should be confirmed with a follow-up test. UREA NITROGEN (BUN) 12 7 - 25 mg/dL [facility] CREATININE 1.02 0.60 - 1.29 mg/dL [facility] EGFR 92 > OR = 60 mL/min/1. 73m2 [facility] BUN/CREATININE RATIO SEE NOTE: 6 22 (calc) [facility] Comment: [...] PM CDT Jose R Foster MD CHEMISTRY Wi3 [facility] [address] [place] [address], [facility] [address] [place] [address] * (ABNORMAL) LIPID PANEL W REFLEX MEASURED LDL (07/27/2023 2:22 PM CDT) CHOLESTEROL,TOTAL 190 100 - 199 mg/dL 07/27/2023 9:24 PM CDT [facility] Comment: Cholesterol, Total Reference Ranges Desirable <200 mg/dL Borderline 200-239 mg/dL High >=240 mg/dL TRIGLYCERIDES 340(H) <150 mg/dL 07/27/2023 9:24 PM CDT [facility] HDL CHOLESTEROL 45 >40 mg/dL 9:24 PM CDT [facility] NON-HDL CHOLESTEROL 145(H) <145 mg/dl 07/27/2023 9:24 PM CDT [facility] CHOL/HDL RATIO 4.22 <4.50 07/27/2023 9:24 PM CDT [facility] LDL CHOLESTEROL 77 <=130 mg/dL 07/27/2023 9:24 PM CDT [facility] VLDL CHOLESTEROL 68(H) <=30 mg/dL 07/27/2023 9:24 PM CDT [facility] PROVIDER ORDERED STATUS RANDOM 07/27/2023 9:24 PM CDT [facility] Blood BLOOD SPECIMEN / Unknown Venipuncture / Unknown 07/27/2023 2:22 PM CDT 07/27/2023 2:25 PM CDT Trey Kim MD CHEMISTRY [facility] [address] [place] [address], from Last 3 Months or Most Recently [...] 8:06 AM 11/08/2018 2:17 PM Care Teams Supervisor Underwriting Clerks Relationship Specialty Start Date End Date Votel, Jose R Garvey MD [address] [place] [address] PCP - General Family Practice 07/23/22 Nghia Arauz MD Family Practice 12/25/10
--- OUTSIDE RECORDS SUMMARY | 2024-02-14 09:11 | XMS_ITS | Encounter Summary ---
Author Organization [facility] Address [address] [place] [address] Phone Care Team Providers Care Transport Conductor Name Role Phone Unavailable Primary Care Provider Unavailabl e Encounter Details Date Type Department Care Team (Late st Contact Info) Description 11/10/2023 Orders Only [facility] Radiology Department DANISHA [address] [address] Provider, [place] [address] Referral of patient (Primary Dx) Social History [...] FILMS (11/10/2023 10:46 AM CDT) Narrative User, [id number] - 11/10/2023 3:20 PM CDT Outside Film Only Outside Provider RAD OUTSIDE FILMS documented in this encounter Visit Diagnoses Diagnosis Referral of patient- Primary Referral of patient without examination or treatment documented in this encounter Additional Health Concerns Infection Onset Date Last Indicated Resolved Time 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
== END 2024-02-14 08:55 | disposition home or self-care (01) ==
PROVIDERS: PCP Family Medicine; Visit Provider Physician Assistant Surgical
DX: E11.622 Type 2 diabetes mellitus with other skin ulcer (principal); L98.418 Non-pressure chronic ulcer of buttock with other specified severity; L60.8 Other nail disorders; Z79.4 Long term (current) use of insulin; Z79.84 Long term (current) use of oral hypoglycemic drugs; Z72.0 Tobacco use
CPT/HCPCS: 11042; 11719

== ENCOUNTER 2024-02-21 08:55 | Outpatient (CLI) | payer MEDICARE, MEDICAID, SELFPAY ==
--- OUTSIDE RECORDS SUMMARY | 2024-02-21 09:00 | XMS_ITS | Clinical Summary ---
Author Organization [employer] Address [address] [place] [address] Phone Care Team Providers Care Canned Food Reconditioning Inspector Name Role Phone Unavailable Primary Care Provider Unavailabl e Source Comments [employer] is fully rolled out on [employer]. 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[facility]) Discharge Disposition: Discharged to home or self care 01/20/2024 9:54 AM CDT - 01/20/2024 11:59 PM CDT Hospital Encounter [facility] [address] [place] [address] David Cortes MD Routine, Hbo - Discharge Disposition: Discharged to home or self care 01/20/2024 Travel 01/19/2024 10:30 AM CDT - 01/19/2024 11:59 PM CDT Hospital Encounter [facility] [address] [place] [address] Nikolai Martinez MD Routine, Hbo - Discharge Disposition: Discharged to home or self care 01/19/2024 Travel 01/18/2024 10:06 AM CDT - 01/18/2024 11:59 PM CDT Hospital Encounter [facility] [address] [place] [address] David Cortes MD Routine, Hbo - Discharge Disposition: Discharged to home or self care 01/18/2024 Travel 01/17/2024 9:42 AM CDT - 01/17/2024 11:59 PM CDT Hospital Encounter [facility] [address] [place] [address] Douglas Morris II, MD Routine, Hbo - Discharge Disposition: Discharged to home or self care 01/17/2024 Travel 01/12/2024 9:53 AM CDT - 01/12/2024 11:59 PM CDT Hospital Encounter [facility] [address] [place] [address] David Cortes MD Routine, Hbo - Discharge Disposition: Discharged to home or self care 01/12/2024 Travel 01/11/2024 10:01 AM CDT - 01/11/2024 11:59 PM CDT Hospital Encounter [facility] [address] [place] [address] Nikolai Martinez MD Routine, Hbo - Discharge Disposition: Discharged to home or self care 01/11/2024 Travel 01/07/2024 10:06 AM CDT - 01/07/2024 11:59 PM CDT Hospital Encounter [facility] [address] [place] [address] Maggy Horan MD Routine, Hbo - Discharge Disposition: Discharged to home or self care 01/07/2024 Travel 01/06/2024 9:50 AM CDT - 01/06/2024 11:59 PM CDT Hospital Encounter [facility] [address] [place] [address] David Cortes MD Routine, Hbo - Discharge Disposition: Discharged to home or self care 01/06/2024 9:40 AM CDT - 01/06/2024 11:59 PM CDT Hospital Encounter [facility] [address] [place] [address] David Cortes MD Discharge Disposition: Discharged to home or self care 01/06/2024 Travel 01/05/2024 9:32 AM CDT - 01/05/2024 11:59 PM CDT Hospital Encounter [facility] [address] [place] [address] David Cortes MD Routine, Hbo - Discharge Disposition: Discharged to home or self care 01/05/2024 Orders Only [facility] [address] [place] [address] Talita Patel MD 01/05/2024 Travel 01/04/2024 10:16 AM CDT - 01/04/2024 11:59 PM CDT Hospital Encounter [facility] [address] [place] [address] Douglas Morris II, MD Routine, Hbo - Discharge Disposition: Discharged to home or self care 01/04/2024 Travel 01/03/2024 9:33 AM CDT - 01/03/2024 11:59 PM CDT Hospital Encounter [facility] [address] [place] [address] Narcisa Sanford MD Routine, Hbo - Discharge Disposition: Discharged to home or self care 01/03/2024 Travel 12/31/2023 1:00 PM CDT [facility] [address] [address] Suzy Patino DPM S/P foot surgery, right (Primary Dx) Discharge Disposition: Discharged to home or self care 12/31/2023 9:51 AM CDT - 12/31/2023 11:59 PM CDT Hospital Encounter [facility] [address] [address] Douglas Morris II, MD Routine, Hbo - Discharge Disposition: Discharged to home or self care 12/31/2023 Travel 12/30/2023 9:49 AM CDT - 12/30/2023 11:59 PM CDT Hospital Encounter [facility] [address] [address] David Cortes MD Routine, Hbo - Discharge Disposition: Discharged to home or self care 12/30/2023 Travel 12/29/2023 9:38 AM CDT - 12/29/2023 11:59 PM CDT Hospital Encounter [facility] [address] [address] Nikolai Martinez MD Routine, Hbo - Discharge Disposition: Discharged to home or self care 12/29/2023 Travel 12/28/2023 Telephone [facility] [address] [address] Dayanna Rodriguez RN Care Coordination (Called to discuss outpatient HBOT schedule) 12/27/2023 9:00 AM CDT Nurse Only [facility] [address] [place] [address] Suzy Patino, DPM Discharge Disposition: Discharged to home or self care 12/27/2023 Travel 12/24/2023 10:00 AM CDT [facility] [address] [place] [address] 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, 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, [employer] SAW TENDER 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); Soft tissue infection Discharge Disposition: Discharged to home or self care 12/24/2023 Travel 12/23/2023 9:33 AM CDT - 12/23/2023 11:59 PM CDT Hospital Encounter [facility] [address] [address] Nikolai Martinez MD Routine, Hbo - Discharge Disposition: Discharged to home or self care 12/23/2023 Travel 12/22/2023 9:43 AM CDT - 12/22/2023 11:59 PM CDT Hospital Encounter [facility] [address] [place] [address] Narcisa Sanford MD Routine, Hbo - Discharge Disposition: Discharged to home or self care 12/22/2023 Travel 12/20/2023 9:34 AM CDT - 12/20/2023 11:59 PM CDT Hospital Encounter [facility] [address] [place] [address] Shawn Vines MD Routine, Hbo - Discharge Disposition: Discharged to home or self care 12/20/2023 Travel 12/17/2023 1:45 PM CDT [facility] [address] [address] Suzy Patino DPM S/P foot surgery, right (Primary Dx) Discharge Disposition: Discharged to home or self care 12/17/2023 Travel 12/14/2023 Telephone [facility] Medicine [address] [place] [address] Aretha Damon MD Follow-up 12/10/2023 10:39 AM CDT Anesthesia Event OR P4 [address] [place] [address] lCint White MD Bojanov, Krasimir G, MD 12/10/2023 9:49 AM CDT - 12/10/2023 11:34 AM CDT Surgery OR P4 [address] [place] [address] Suzy Patino DPM REVISION, AMPUTATION SITE, POSSIBLE PARTIAL FOOT AMPUTATION, IRRIGATION AND DEBRIDMENT, POSSIBLE SERIAL PROCEDURES, L LOWER EXTREMITY 12/08/2023 7:35 AM CDT - 12/08/2023 9:13 AM CDT Surgery OR P4 [address] [place] [address] Che Campos DPM PARTIAL AMPUTATION FOOT 12/08/2023 7:28 AM CDT Anesthesia Event OR P4 [address] [place] [address] Dontae Higgins MD Bojanov, Krasimir G, MD 12/07/2023 3:48 PM CDT - 12/14/2023 12:38 PM CDT Hospital Encounter [facility] Orthopaedic [address] [place] [address] Eusebio Vivar MD Rajagopal, Shrikar S, MD Oeding, Suzy Torres, Igor Cosby MD Lawson, Clint Gomez MD Other acute osteomyelitis of left foot ([facility]) Discharge Disposition: Discharged/transd to home (care by home health service organization) 12/07/2023 3:07 PM CDT - 12/07/2023 11:59 PM CDT Hospital Encounter [facility] [address] [address] Che Campos DPM Discharge Disposition: Discharged to home or self care 12/07/2023 2:30 PM CDT [facility] [address] [place] [address] Che Campos DPM 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[facility]) (Primary Dx); Cellulitis of left lower extremity Discharge Disposition: Discharged to home or self care 12/07/2023 Travel 12/02/2023 Nurse Triage [facility] [address] [place] [address] Angi Aranda RN Post-op Complications 11/10/2023 2:28 PM CDT - 11/25/2023 12:02 PM CDT Hospital Encounter [facility] Surgery/Trauma/Ne uro [address] [place] [address] Jessica Madrigal MD Gayken, Jon R, MD 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[facility]) Discharge Disposition: Discharged/transd to SNF with [...] CDT Other acute osteomyelitis of left foot ([facility]) REVISION, AMPUTATION SITE, LOWER EXTREMITY Urgent (< [...] Routine 12/07/2023 3:23 PM CDT 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 POC Glucose 323(H) 70 - 100 mg/dL [facility] Blood 01/19/2024 12:2 2 PM CDT Nikolai Martinez MD LABORATORY [facility] [address] [place] [address], * HBO ANGIOGRAPHY EXTREMITY UNILATERAL (01/06/2024 9:40 [...] 5:24 PM CDT) Only the most recent of3 resultswithin the time period is included. Vancomycin 17.0 mcg/mL [facility] Comment:Expected Range (Trou gh): 10-20 mcg/ml Blood 12/13/2023 5:24 PM CDT 12/13/2023 5:46 PM CDT Narrative [facility] - 12/13/2023 6:34 PM CDT Please ensure trough level drawn prior to next vancomycin dose. Thank you Peak or trough:->Trough Eusebio Perez PharmD LABORATORY [facility] [address] [address] * (ABNORMAL) CBC WITH PLTS/AUTO DIFF (12/11/2023 5:50 AM CDT) Only the most recent of3 resultswithin the time period is included. WBC 8.72 4.00 - 10.00 k/cmm [facility] RBC 3.82(L) 4.60 - 6.00 m/cmm [facility] Hgb 10.6(L) 13.1 - 17.5 g/dL [facility] Hematocrit 32.4(L) 40.0 - 51.0 % [facility] MCV 84.8 80.0 - 100.0 fL [facility] MCH 27.7 25.0 - 32.0 pg [facility] MCHC 32.7 31.0 - 36.0 g/dL [facility] RDW 13.5 11.5 - 14.5 % [facility] Plt 400 150 - 400 k/cmm [facility] MPV 9.3 6.5 - 12.5 fL [facility] Automated Abs Neutrophil 4.22 1.70 - 6.50 k/cmm [facility] Comment:Preliminary ANC, Fin al Result to Follow Abs Immature Granulocyte 0.09 0.00 - 0.09 k/cmm [facility] Comment:The Immature Granulo cyte Absolute count contains metamyelocytes and myelocytes. Abs Neutrophil 4.22 1.70 - 6.50 k/cmm [facility] Abs Lymphocyte 2.59 0.80 - 4.00 k/cmm [facility] Abs Monocyte 1.00 0.20 - 1.00 k/cmm [facility] Abs Eosinophil 0.79(H) 0.00 - 0.60 k/cmm [facility] Abs Basophil 0.03 0.00 - 0.20 k/cmm [facility] Blood 12/11/2023 5:50 AM CDT 12/11/2023 6:26 AM CDT Igor Glover MD LABORATORY [facility] [address] [address] * (ABNORMAL) PANEL BASIC METABOLIC (BMP) (12/11/2023 5:50 AM CDT) Only the most recent of7 resultswithin the time period is included. CO2 25 22 - 30 mmol/L [facility] Glucose 178(H) 70 - 100 mg/dL [facility] BUN 9 6 - 20 mg/dL [facility] Creatinine 0.92 0.70 - 1.25 mg/dL [facility] Calcium 9.0 8.6 - 10.0 mg/dL [facility] Sodium 136 135 - 148 mmol/L [facility] Potassium 4.1 3.5 - 5.3 mmol/L [facility] Chloride 100 92 - 108 mmol/L [facility] eGFR (2020 CKD-EPI) 105 >=60 ml/min/1.7 3m2 [facility] Comment: The estimated glomerular filtration rate (eGFR) was calculated using the CKD-EPI 2020 creatinine equation, which does not include race as a factor. This equation is validated in individuals 18 years of age and older, and eGFR is normalized to a body surface area of 1.73m^2. AnGap 11 8 - 16 mmol/L [facility] Blood 12/11/2023 5:50 AM CDT 12/11/2023 6:25 AM CDT Igor Glover MD LABORATORY [facility] [address] [place] [phone] * XR CHEST 2 VIEWS PA + [...] 1:34 PM CDT) Only the most recent of3 [...] 11:07 AM CDT) Only the most recent of2 resultswithin the time period is included. SURG PATH FINAL ?Surgical Pathology Report Collection Date: ?12/10/2023 11:07 CDT ? Ordering Physician: ? SUZY PATINO Received Date: ?12/10/2023 12:07 CDT ? Accession Number: ? [id number] ? Surgical Pathology Final Report Specimen Type: [...] Regalado M.D. Attending Pathologist. DDB/DDB 12.10.2023 13:39 [facility] AP Specimen FOOT STRUCTURE / Unknown 12/10/2023 11:07 AM CDT Comment:OR: Routine gross an d microscopic examination Tissue: 1st metatarsel left foot, cut margin Site: foot Additional clinical information: Suzy Patino [facility] PATHOLOGY [facility] [place] [phone] * HBO TCO2 MEASUREMENT COMPLETE (12/09/2023 10:25 [...] Reg 2002; 10:198-207. Bridget QUIÑONEZ et al. [facility] 2009, Vol. 36(1). ? [place] 07/27/13 Suzy Shafer PA-C HYPERBARIC CHAMMADELIN R * (ABNORMAL) SED RATE (ESR) (12/08/2023 4:47 PM CDT) Only the most recent of2 resultswithin the time period is included. Pathologist [facility] Sed Rate 120(H) 2 - 10 mm/hr [facility] Blood 12/08/2023 4:47 PM CDT 12/08/2023 5:07 PM CDT Suzy Shafer PA-C LABORATORY [facility] [address] [place] [phone] * (ABNORMAL) GLYCOSYLATED HGB - A1C (12/08/2023 4:47 PM CDT) Pathologist [facility] Hemoglobin A1C 8.5(H) 4.0 - 5.6 % [facility] Comment: Increased risk [...] Estimated Average Glucose 197(H) 68 - 114 [facility] Comment: The estimated Average Glucose (eAG) was calculated using an equation derived from a study of 507 adults with type 1, type 2, or no diabetes. Minority populations were underrepresented and children were not included. The eAG is not equivalent to a fasting glucose concentration. Blood 12/08/2023 4:47 PM CDT 12/08/2023 5:07 PM CDT Narrative [facility] - 12/08/2023 6:01 PM CDT If not done in the last 30 days. Suzy Shafer PA-C LABORATORY [facility] [address] [address] * (ABNORMAL) C-REACTIVE PROTEIN (12/08/2023 4:47 PM CDT) Only the most recent of2 resultswithin the time period is included. C-Reactive Protein 77(H) <=4 mg/L [facility] Blood 12/08/2023 4:47 PM CDT 12/08/2023 5:07 PM CDT Suzy Shafer PA-C LABORATORY [facility] [address] [address] * (ABNORMAL) CBC WITH PLATELET (12/08/2023 4:47 PM CDT) Only the most recent of4 resultswithin the time period is included. WBC 10.39(H) 4.00 - 10.00 k/cmm [facility] RBC 3.59(L) 4.60 - 6.00 m/cmm [facility] Hgb 9.8(L) 13.1 - 17.5 g/dL [facility] Hematocrit 30.8(L) 40.0 - 51.0 % [facility] MCV 85.8 80.0 - 100.0 fL [facility] MCH 27.3 25.0 - 32.0 pg [facility] MCHC 31.8 31.0 - 36.0 g/dL [facility] RDW 13.5 11.5 - 14.5 % [facility] Plt 314 150 - 400 k/cmm [facility] MPV 9.3 6.5 - 12.5 fL [facility] Blood 12/08/2023 4:47 PM CDT 12/08/2023 5:07 PM CDT Suzy Shafer PA-C LABORATORY [facility] [address] [address] * (ABNORMAL) TISSUE CULTURE:INCLUDES GRAM STAIN (12/08/2023 7:51 AM CDT) Only the most recent of2 resultswithin the time period is included. Final Report Positive Culture Few METHICILLIN RESISTANT Staphylococcus aureus (MRSA) isolated. 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 For susceptibility, see previous report on culture from wound culture collected 12/07/23. (POS) [facility] Organism METHICILLIN RESISTANT STAPHYLOCOCCUS AUREUS (MRSA)(POS) [facility] Gram Stain Report Corrected Report Positive Gram stain Rare PMN's seen. Rare gram positive cocci. Gram stain electronically reported to and acknowledged by: Dr. Healy Marker from OR at ??12/08/2023 10:09:09 by Jacklyn Easley MLS. Removed Pleomorphic gram variable bacilli from report. Results electronically reported to and acknowledged by: Dr. Igor Glover [facility] 12/09/2023 12:48:27. Elizabeth Schwartz MLS. (POS) [facility] Bone STRUCTURE OF LEFT FOOT / Unknown 12/08/2023 7:51 AM CDT 12/08/2023 9:00 AM CDT Comment:2. Bone first metata rsal left foot Che Mullent DPM LAB MICROBIOLOGY Performing Organization Address [facility] Co de Phone Number [facility] [address] [address] * FUNGUS CULTURE:INCLUDES SUHAS (12/08/2023 7:51 AM CDT) Only the most recent of2 resultswithin the time period is included. Final Report No fungus isolated. [facility] SUHAS Prep No fungal elements seen. [facility] Bone STRUCTURE OF LEFT FOOT / Unknown 12/08/2023 7:51 AM CDT 12/08/2023 9:00 AM CDT Comment:2. Bone first metata rsal left foot Chekatelin Jonbitt DPM LAB MICROBIOLOGY Performing Organization Address [facility] Co de Phone Number [facility] [address] [address] * ANAEROBE CULTURE (12/08/2023 7:51 AM CDT) Only the most recent of2 resultswithin the time period is included. Final Report No anaerobes isolated. [facility] Bone STRUCTURE OF LEFT FOOT / Unknown 12/08/2023 7:51 AM CDT 12/08/2023 9:00 AM CDT Comment:2. Bone first metata rsal left foot Che L Beth DPM LAB MICROBIOLOGY Performing Organization Address [facility] Co de Phone Number [facility] [address] [address] * EXTRA TUBE - DARK GREEN (12/07/2023 4:05 PM CDT) DARK GREEN TUBE Stored [facility] Comment:Dark Green tubes (Li thium Heparin) are stored in the lab for 1 day from the collection date. Blood 12/07/2023 4:05 PM CDT 12/07/2023 4:24 PM CDT Eusebio Vivar MD LABORATORY [facility] [address] [address] * EXTRA TUBE - BLUE (12/07/2023 4:05 PM CDT) BLUE TUBE [facility] Comment:Blue top(Sodium citr ate) tubes are kept for 3 days from the collection date. Blood 12/07/2023 4:05 PM CDT 12/07/2023 4:24 PM CDT Eusebio Vivar MD LABORATORY Performing Organization Address [facility] Co de Phone Number [facility] [address] [address] * (ABNORMAL) ED CHEMISTRY LABS(NA,K,CL,CO2,GLU,CREAT,CA-IONIZED,ANION GAP) (12/07/2023 4:05 PM CDT) Sodium 139 135 - 148 mmol/L [facility] Chloride 97 92 - 108 mmol/L [facility] AnGap 15 8 - 16 mmol/L [facility] Glucose 284(H) 70 - 100 mg/dL [facility] ICA, Actual 4.89 4.40 - 5.20 mg/dL [facility] ICA, pH Corrected 4.74 4.40 - 5.20 mg/dL [facility] Creatinine 1.26(H) 0.70 - 1.25 mg/dL [facility] BICARB 26 22 - 26 mEq/L [facility] eGFR (2020 CKD-EPI) 72 >=60 ml/min/1.7 3m2 [facility] Comment: The estimated glomerular filtration rate (eGFR) was calculated using the CKD-EPI 2020 creatinine equation, which does not include race as a factor. This equation is validated in individuals 18 years of age and older, and eGFR is normalized to a body surface area of 1.73m^2. Potassium 4.5 3.5 - 5.3 mmol/L [facility] Blood 12/07/2023 4:05 PM CDT 12/07/2023 4:27 PM CDT Eusebio Vivar MD LABORATORY Performing Organization Address [facility] Co de Phone Number [facility] [address] [address] * LACTATE (LACTIC ACID) (12/07/2023 4:05 PM CDT) Lactate 2.1 0.7 - 2.1 mmol/L [facility] Blood 12/07/2023 4:05 PM CDT 12/07/2023 4:27 PM CDT Narrative [facility] - 12/07/2023 4:27 PM CDT Send specimen on ice! Eusebio Vivar MD LABORATORY Performing Organization Address [facility] Co de Phone Number [facility] [address] [address] * BLOOD AEROBIC/ANAEROBIC CULTURE (12/07/2023 4:05 PM CDT) Final Report No growth after 5 days. [facility] Blood (Peripheral) 12/07/2023 4:05 PM CDT 12/07/2023 7:55 PM CDT Eusebio Vivar MD LAB MICROBIOLOGY Performing Organization Address [facility] Co de Phone Number [facility] [address] [address] * (ABNORMAL) WOUND CULTURE:GRAM STAIN OPTIONAL (12/07/2023 3:00 PM CDT) Final Report Rare METHICILLIN RESISTANT Staphylococcus aureus (MRSA) isolated. 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 Rare Corynebacterium striatum group isolated. A member of the diphtheroid bacilli. (POS) [facility] Organism METHICILLIN RESISTANT STAPHYLOCOCCUS AUREUS (MRSA)(POS) [facility] Organism CORYNEBACTERIUM STRIATUM GROUP(POS) [facility] Gram Stain Report No PMN's seen. No organisms seen. [facility] Swab STRUCTURE OF LEFT FOOT / Unknown 12/07/2023 3:00 PM CDT 12/07/2023 5:23 PM CDT Narrative [facility] - 12/10/2023 10:38 [...] Vancomycin MICROSCAN JORDY 1: Sensitive Che Campos [facility] MICROBIOLOGY [facility] [address] [address] * (ABNORMAL) CYSTATIN C (11/22/2023 9:23 AM CDT) Cystatin C 1.43(H) 0.61 - 0.95 mg/L [facility] eGFR by Cystatin C 51(L) >=60 ml/min/1.7 3m2 [facility] Comment: Estimated GFR calculated using the CKD-EPI Cystatin C (2012) equation. Stage ? Description ?eGFR Range ??1.......Normal or increased eGFR.......90 or Greater ??2.......Mildly decreased eGFR..........60-89 ??3.......Moderately decreased eGFR......30-59 ??4.......Severely decreased eGFR........15-29 ??5.......Kidney Failure.................Less than 15 Blood 11/22/2023 9:23 AM CDT 11/22/2023 2:05 PM CDT Zac Jacskon MD LABORATORY [facility] [address] [address] * HIV COMBO (11/15/2023 7:39 AM CDT) HIV Antigen-Antibody Nonreactive Nonreactive [facility] Comment:Performance characte ristics have not been established with this test on patients less than 2 years of age. Blood 11/15/2023 7:39 AM CDT 11/15/2023 7:58 AM CDT Zac Jackson MD LABORATORY [facility] [address] [address] from Last 3 Months or Most Recently Relevant to Health Maintenance Additional Health Concerns Infection Onset Date Last Indicated MRSA 11/17/2023 12/08/2023 Advance Directives For more information, please contact: [phone] * Full Code (Latest Code Status on [...]
--- OUTSIDE RECORDS SUMMARY | 2024-02-21 09:01 | XMS_ITS | Encounter Summary ---
Author Organization [facility] Address [address] [place] [address] Phone Care Team Providers Care Asset Liability Analyst Name Role Phone Unavailable Primary Care Provider Unavailabl e Reason for Visit * Reason Comments Follow-up Encounter Details Date Type Department Care Team (Late st Contact Info) Description 01/20/2024 1:30 PM CDT [facility] [address] [address] Afshna Sims, DPMore[place] [address] [address] S/P foot surgery, right (Primary Dx); 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[facility]) Discharge Disposition: Discharged to home or [...] Schizophrenia History of TBI --Patient is own [facility] Clinic plan: -Discussed postoperative course and expectations -Advised patient that the incision has healed -Okay to begin wearing regular tennis shoes -[facility]. They will be delivered to patient once they are ready. He is to begin wearing diabetic shoes and inserts once they arrive -There are no restrictions from our standpoint for the patient -[place] paperwork completed and returned to patient Return [...] He is hoping he can move his assisted. He has no other question or concerns [...] S/P foot surgery, right- Primary 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CMS/[facility]) documented in this encounter Additional Health Concerns Infection Onset Date Last Indicated Resolved Time 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
--- OUTSIDE RECORDS SUMMARY | 2024-02-21 09:01 | XMS_ITS | Encounter Summary ---
Author Organization [facility] Address [address] [place] [address] Phone Care Team Providers Care Electromagnet Crane Operator Name Role Phone Unavailable Primary Care [...]
--- OUTSIDE RECORDS SUMMARY | 2024-02-21 09:01 | XMS_ITS | Encounter Summary ---
Author Organization [facility] Address [address] [place] [address] Phone Care Team Providers Care Classifier Operator Name Role Phone Unavailable Primary Care [...]
--- OUTSIDE RECORDS SUMMARY | 2024-02-21 09:01 | XMS_ITS | Encounter Summary ---
Author Organization [facility] Address [address] [place] [address] Phone Care Team Providers Care Knitter Helper Name Role Phone Unavailable Primary Care [...]
--- OUTSIDE RECORDS SUMMARY | 2024-02-21 09:01 | XMS_ITS | Encounter Summary ---
Author Organization [facility] Address [address] [place] [address] Phone Care Team Providers Care Computer Support Analyst Name Role Phone Unavailable Primary Care [...]
--- OUTSIDE RECORDS SUMMARY | 2024-02-21 09:01 | XMS_ITS | Encounter Summary ---
Author Organization [facility] Address [address] [place] [address] Phone Care Team Providers Care Self Sealing Fuel Tank Builder Name Role Phone Unavailable Primary Care Provider Unavailabl e Encounter Details Date Type Department Care Team (Late st Contact Info) Description 01/12/2024 9:53 AM CDT - 01/12/2024 11:59 PM CDT Hospital En[place] [facility] [address] [facility] [address] [place], [place] [phone] SophiaDavid ward MD 701 [facility] [address] [place], [place] [phone] Routine, Hbo - [phone] Discharge Disposition: Discharged to home or self [...] hesitate to call the Hyperbaric Department at [phone] during clinic hours or page radiophone operator staff with any updates, questions, or [...] POC Glucose 414(H) 70 - 100 mg/dL [facility] Blood 01/12/2024 10:0 2 AM CDT David Cortes MD LABORATORY [facility] [address] [place] [address], documented in this encounter Visit Diagnoses Diagnosis Soft tissue infection- Primary Unspecified infectious and parasitic diseases Other acute osteomyelitis of left foot (CMS/HHS) documented in this encounter Additional Health Concerns Infection Onset Date Last Indicated Resolved Time 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
--- OUTSIDE RECORDS SUMMARY | 2024-02-21 09:01 | XMS_ITS | Encounter Summary ---
Author Organization [facility] Address [address] [place] [address] Phone Care Team Providers Care Net Maker Name Role Phone Unavailable Primary Care [...]
--- OUTSIDE RECORDS SUMMARY | 2024-02-21 09:01 | XMS_ITS | Encounter Summary ---
Author Organization [facility] Address [address] [place] [address] Phone Care Team Providers Care Heading Up Machine Operator Name Role Phone Unavailable Primary Care [...]
--- OUTSIDE RECORDS SUMMARY | 2024-02-21 09:01 | XMS_ITS | Encounter Summary ---
Author Organization [facility] Address [address] [facility] [place] [address] Phone Care Team Providers Care Utility System Repairer Name Role Phone Unavailable Primary Care Provider Unavailabl e Encounter Details Date Type Department Care Team (Latest Contact Info) Description 01/19/2024 10:30 AM CDT - 01/19/2024 11:59 PM CDT Hospital Encounter [facility] Hyperbaric [address] [place] [address] Nikolai Martinez MD [address] [facility] [place], [place] [address] Uephgoc, Zmz - [phone] Discharge Disposition: Discharged to home or self [...] hesitate to call the Hyperbaric Department at [phone] during clinic hours or page account retention representative staff with any updates, questions, or concerns. [...] POC GLUCOSE (01/19/2024 12:22 PM CDT) Pathologist [facility] POC Glucose 323(H) 70 - 100 mg/dL [facility] Blood 01/19/2024 12:2 2 PM CDT Nikolai Martinez MD LABORATORY Performing Organization Address City/State/[facility] Co de Phone Number [facility] [address] [place] [address], * (ABNORMAL) POC GLUCOSE (01/19/2024 9:58 AM CDT) POC Glucose 353(H) 70 - 100 mg/dL [facility] Blood 01/19/2024 9:58 AM CDT Provider Unknown LABORATORY [facility] [address] [place] [address], documented in this encounter Visit Diagnoses Diagnosis Soft tissue infection- Primary Unspecified infectious and parasitic diseases Other acute osteomyelitis of left foot (CMS/[facility]HS) documented in this encounter Additional Health Concerns Infection Onset Date Last Indicated Resolved Time 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
--- OUTSIDE RECORDS SUMMARY | 2024-02-21 09:01 | XMS_ITS | Encounter Summary ---
Author Organization [facility] Address [address] [place] [address] Phone Care Team Providers Care Hay Farmer Name Role Phone Unavailable Primary Care Provider Unavailabl e Encounter Details Date Type Department Care Team (Late st Contact Info) Description 01/18/2024 10:06 AM CDT - 01/18/2024 11:59 PM CDT Hospital Encounter [facility] Hyperbaric [address] [facility] [address] [place], [place] [phone] SophiaDavid ward MD 701 [facility] [address] [place], [place] [phone] Routine, Hbo - [phone] Discharge Disposition: Discharged to home or self [...] hesitate to call the Hyperbaric Department at [phone] during clinic hours or page fire control assistant staff with any updates, questions, or concerns. [...]
--- OUTSIDE RECORDS SUMMARY | 2024-02-21 09:01 | XMS_ITS | Referral Summary ---
Author Organization [facility] Address [address] [address] Phone Care Team Providers Care Grooming Salon Manager Name Role Phone Unavailable Primary Care Provider Unavailabl e Source Comments [facility] [employer] is fully rolled out on [employer]. 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[facility]) Discharge Disposition: Discharged to home or self care 01/19/2024 Travel 01/19/2024 10:30 AM CDT - 01/19/2024 11:59 PM CDT Hospital Encounter [facility] [address] [place] [address] Nikolai Martinez MD Routine, Hbo - Discharge Disposition: Discharged to home or self care 01/18/2024 Travel 01/18/2024 10:06 AM CDT - 01/18/2024 11:59 PM CDT Hospital Encounter [facility] [address] [place] [address] David Cortes MD Routine, Hbo - Discharge Disposition: Discharged to home or self care 01/17/2024 Travel 01/17/2024 9:42 AM CDT - 01/17/2024 11:59 PM CDT Hospital Encounter [facility] [address] [place] [address] Douglas Morris II, MD Routine, Hbo - Discharge Disposition: Discharged to home or self care 01/12/2024 Travel 01/12/2024 9:53 AM CDT - 01/12/2024 11:59 PM CDT Hospital Encounter [facility] [address] [place] [address] David Cortes MD Routine, Hbo - Discharge Disposition: Discharged to home or self care 01/11/2024 Travel 01/11/2024 10:01 AM CDT - 01/11/2024 11:59 PM CDT Hospital Encounter [facility] [address] [place] [address] Nikolai Martinez MD Routine, Hbo - Discharge Disposition: Discharged to home or self care 01/07/2024 Travel 01/07/2024 10:06 AM CDT - 01/07/2024 11:59 PM CDT Hospital Encounter [facility] [address] [place] [address] Maggy Horan MD Routine, Hbo - Discharge Disposition: Discharged to home or self care 01/06/2024 Travel 01/06/2024 9:40 AM CDT - 01/06/2024 11:59 PM CDT Hospital Encounter [facility] [address] [place] [address] David Cortes MD Discharge Disposition: Discharged to home or self care 01/06/2024 9:50 AM CDT - 01/06/2024 11:59 PM CDT Hospital Encounter [facility] [address] [place] [address] David Cortes MD Routine, Hbo - Discharge Disposition: Discharged to home or self care 01/05/2024 Orders Only [facility] [address] [place] [address] Talita Patel MD 01/05/2024 Travel 01/05/2024 9:32 AM CDT - 01/05/2024 11:59 PM CDT Hospital Encounter [facility] [address] [place] [address] David Cortes MD Routine, Hbo - Discharge Disposition: Discharged to home or self care 01/04/2024 Travel 01/04/2024 10:16 AM CDT - 01/04/2024 11:59 PM CDT Hospital Encounter [facility] [address] [address] Douglas Morris II, MD Routine, Hbo - Discharge Disposition: Discharged to home or self care 01/03/2024 Travel 01/03/2024 9:33 AM CDT - 01/03/2024 11:59 PM CDT Hospital Encounter [facility] [address] [place] [address] Narcisa Sanford MD Routine, Hbo - Discharge Disposition: Discharged to home or self care 12/31/2023 Travel 12/31/2023 9:51 AM CDT - 12/31/2023 11:59 PM CDT Hospital Encounter [facility] [address] [place] [address] Douglas Morris II, MD Routine, Hbo - Discharge Disposition: Discharged to home or self care 12/31/2023 1:00 PM CDT [facility] [address] [address] Afshan Patino DPM S/P foot surgery, right (Primary Dx) Discharge Disposition: Discharged to home or self care 12/30/2023 Travel 12/30/2023 9:49 AM CDT - 12/30/2023 11:59 PM CDT Hospital Encounter [facility] [address] [place] [address] David Cortes MD Routine, Hbo - Discharge Disposition: Discharged to home or self care 12/29/2023 Travel 12/29/2023 9:38 AM CDT - 12/29/2023 11:59 PM CDT Hospital Encounter [facility] [address] [place] [address] Nikolai Martinez MD Routine, Hbo - Discharge Disposition: Discharged to home or self care 12/28/2023 Telephone [facility] [address] [place] [address] Dayanna Rodriguez RN Care Coordination (Called to discuss outpatient HBOT schedule) 12/27/2023 Travel 12/27/2023 9:00 AM CDT Nurse Only [facility] [address] [place] [address] Afshan Patino DPM Discharge Disposition: Discharged to home or self care 12/24/2023 Travel 12/24/2023 10:00 AM CDT [facility] [address] [place] [address] 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, CHIEF SCIENTIST, IMPORT/EXPORT ADMINISTRATOR 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); Soft tissue infection Discharge Disposition: Discharged to home or self care 12/23/2023 Travel 12/23/2023 9:33 AM CDT - 12/23/2023 11:59 PM CDT Hospital Encounter [facility] [address] [place] [address] Nikolai Martinez MD Routine, Hbo - Discharge Disposition: Discharged to home or self care 12/22/2023 Travel 12/22/2023 9:43 AM CDT - 12/22/2023 11:59 PM CDT Hospital Encounter [facility] [address] [place] [address] Narcisa Sanford MD Routine, Hbo - Discharge Disposition: Discharged to home or self care 12/20/2023 Travel 12/20/2023 9:34 AM CDT - 12/20/2023 11:59 PM CDT Hospital Encounter [facility] [address] [place] [address] Shawn Vines MD Routine, Hbo - Discharge Disposition: Discharged to home or self care 12/17/2023 Travel 12/17/2023 1:45 PM CDT [facility] [address] [address] Afshan Patino DPM S/P foot surgery, right (Primary Dx) Discharge Disposition: Discharged to home or self care 12/14/2023 Telephone [facility] Medicine [address] [place] [address] Aretha Damon MD Follow-up 12/07/2023 3:48 PM CDT - 12/14/2023 12:38 PM CDT Hospital Encounter [facility] Orthopaedic [address] [place] [address] Eusebio Vivar MD Rajagopal, Shrikar S, MD Oeding, Afshan Torres, Igor Cosby MD Lawson, Michael J, MD Other acute osteomyelitis of left foot ([facility]) Discharge Disposition: Discharged/transd to home (care by home health service organization) 12/10/2023 10:39 AM CDT Anesthesia Event OR P4 [address] [place] [address] Clint White MD Bojanov, Krasimir G, MD 12/10/2023 9:49 AM CDT - 12/10/2023 11:34 AM CDT Surgery OR P4 [address] [place] [address] Afshan Patino DPM REVISION, AMPUTATION SITE, POSSIBLE PARTIAL FOOT AMPUTATION, IRRIGATION AND DEBRIDMENT, POSSIBLE SERIAL PROCEDURES, L LOWER EXTREMITY 12/08/2023 7:28 AM CDT Anesthesia Event OR P4 [address] [place] [address] Dontae Higgins MD Bojanov, Krasimir G, MD 12/08/2023 7:35 AM CDT - 12/08/2023 9:13 AM CDT Surgery OR P4 [address] [place] [address] Che Campos DPM PARTIAL AMPUTATION FOOT 12/07/2023 3:07 PM CDT - 12/07/2023 11:59 PM CDT Hospital Encounter [facility] [address] [address] Che Campos DPM Discharge Disposition: Discharged to home or self care 12/07/2023 Travel 12/07/2023 2:30 PM CDT [facility] [address] [place] [address] Che Campos DPM 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[facility]) (Primary Dx); Cellulitis of left lower extremity Discharge Disposition: Discharged to home or self care 12/02/2023 Nurse Triage [facility] [address] [place] [address] Angi Aranda RN Post-op Complications 11/10/2023 2:28 PM CDT - 11/25/2023 12:02 PM CDT Hospital Encounter [facility] Surgery/Trauma/Ne uro [address] [place] [address] Jessica Madrigal MD Gayken, Jon R, MD 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[facility]) Discharge Disposition: Discharged/transd to SNF with Medicare certification from Last 3 Months Allergies No known [...] 12/10/2023 Other acute osteomyelitis of left foot ([facility]) 12/07/2023 At risk for sexually transmi tted infection due to unprotected sex 11/12/2023 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[facility]) 11/10/2023 Resolved Problems Problem Noted Date Diagnosed [...] CDT Other acute osteomyelitis of left foot ([facility]) REVISION, AMPUTATION SITE, LOWER EXTREMITY [...] CDT Other acute osteomyelitis of left foot ([facility]) PC CULTURE FUNGI ISOLATION W-WO PRESUMPTIVE ID [...] Routine 12/07/2023 3:23 PM CDT 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 Vancomycin 17.0 mcg/mL [facility] Comment:Expected Range (Trou gh): 10-20 mcg/ml Blood 12/13/2023 5:24 PM CDT 12/13/2023 5:46 PM CDT Narrative [facility] - 12/13/2023 6:34 PM CDT Please ensure trough level drawn prior to next vancomycin dose. Thank you Peak or trough:->Trough Eusebio Perez PharmD LABORATORY [facility] [address] [place] [address] * (ABNORMAL) CBC WITH PLTS/AUTO DIFF (12/11/2023 5:50 AM CDT) Only the most recent of3 resultswithin the time period is included. WBC 8.72 4.00 - 10.00 k/cmm [facility] RBC 3.82(L) 4.60 - 6.00 m/cmm [facility] Hgb 10.6(L) 13.1 - 17.5 g/dL [facility] Hematocrit 32.4(L) 40.0 - 51.0 % [facility] MCV 84.8 80.0 - 100.0 fL [facility] MCH 27.7 25.0 - 32.0 pg [facility] MCHC 32.7 31.0 - 36.0 g/dL [facility] RDW 13.5 11.5 - 14.5 % [facility] Plt 400 150 - 400 k/cmm [facility] MPV 9.3 6.5 - 12.5 fL [facility] Automated Abs Neutrophil 4.22 1.70 - 6.50 k/cmm [facility] Comment:Preliminary ANC, Fin al Result to Follow Abs Immature Granulocyte 0.09 0.00 - 0.09 k/cmm [facility] Comment:The Immature Granulo cyte Absolute count contains metamyelocytes and myelocytes. Abs Neutrophil 4.22 1.70 - 6.50 k/cmm [facility] Abs Lymphocyte 2.59 0.80 - 4.00 k/cmm [facility] Abs Monocyte 1.00 0.20 - 1.00 k/cmm [facility] Abs Eosinophil 0.79(H) 0.00 - 0.60 k/cmm [facility] Abs Basophil 0.03 0.00 - 0.20 k/cmm [facility] Blood 12/11/2023 5:50 AM CDT 12/11/2023 6:26 AM CDT Igor Glover MD LABORATORY [facility] [address] [address] * (ABNORMAL) PANEL BASIC METABOLIC (BMP) (12/11/2023 5:50 AM CDT) Only the most recent of7 resultswithin the time period is included. CO2 25 22 - 30 mmol/L [facility] Glucose 178(H) 70 - 100 mg/dL [facility] BUN 9 6 - 20 mg/dL [facility] Creatinine 0.92 0.70 - 1.25 mg/dL [facility] Calcium 9.0 8.6 - 10.0 mg/dL [facility] Sodium 136 135 - 148 mmol/L [facility] Potassium 4.1 3.5 - 5.3 mmol/L [facility] Chloride 100 92 - 108 mmol/L [facility] eGFR (2020 CKD-EPI) 105 >=60 ml/min/1.7 3m2 [facility] Comment: The estimated glomerular filtration rate (eGFR) was calculated using the CKD-EPI 2020 creatinine equation, which does not include race as a factor. This equation is validated in individuals 18 years of age and older, and eGFR is normalized to a body surface area of 1.73m^2. AnGap 11 8 - 16 mmol/L [facility] Blood 12/11/2023 5:50 AM CDT 12/11/2023 6:25 AM CDT Igor Glover MD LABORATORY [facility] [address] [address] * XR CHEST 2 VIEWS PA + [...] ?12/10/2023 12:07 CDT ? Accession Number: ? [id number] ? Surgical Pathology Final Report Specimen Type: [...] Regalado M.D. Attending Pathologist. DDB/DDB 12.10.2023 13:39 [facility] AP Specimen FOOT STRUCTURE / Unknown 12/10/2023 11:07 AM CDT Comment:OR: Routine gross an d microscopic examination Tissue: 1st metatarsel left foot, cut margin Site: foot Additional clinical information: Afshan Patino [facility] PATHOLOGY [facility] [address] [address] * HBO TCO2 MEASUREMENT COMPLETE (12/09/2023 10:25 [...] Reg 2002; 10:198-207. Bridget QUIÑONEZ et al. [facility] 2009, Vol. 36(1). ? [place] 07/27/13 Afshan Shafer PA-C HYPERBARIC CHAMMADELIN R * (ABNORMAL) SED RATE (ESR) (12/08/2023 4:47 PM CDT) Only the most recent of2 resultswithin the time period is included. Pathologist [facility] Sed Rate 120(H) 2 - 10 mm/hr [facility] Blood 12/08/2023 4:47 PM CDT 12/08/2023 5:07 PM CDT Afshan Shafer PA-C LABORATORY [facility] [address] [place] [address] * (ABNORMAL) GLYCOSYLATED HGB - A1C (12/08/2023 4:47 PM CDT) Pathologist [facility] Hemoglobin A1C 8.5(H) 4.0 - 5.6 % [facility] Comment: Increased risk for diabetes (prediabetes): 5.7-6.4% Diabetes >=6.5% In the absence of unequivocal hyperglycemia, diagnosis requires two abnormal test results (i.e. HbA1c and glucose) or two abnormal results from specimens collected at two different timepoints. The presence of some hemoglobin variants or red cell disorders may interfere with the measurement of hemoglobin A1c (HbA1c). Estimated Average Glucose 197(H) 68 - 114 [facility] Comment: The estimated Average Glucose (eAG) was calculated using an equation derived from a study of 507 adults with type 1, type 2, or no diabetes. Minority populations were underrepresented and children were not included. The eAG is not equivalent to a fasting glucose concentration. Blood 12/08/2023 4:47 PM CDT 12/08/2023 5:07 PM CDT Narrative [facility] - 12/08/2023 6:01 PM CDT If not done in the last 30 days. Afshan Shafer PA-C LABORATORY [facility] [address] [address] * (ABNORMAL) C-REACTIVE PROTEIN (12/08/2023 4:47 PM CDT) Only the most recent of2 resultswithin the time period is included. C-Reactive Protein 77(H) <=4 mg/L [facility] Blood 12/08/2023 4:47 PM CDT 12/08/2023 5:07 PM CDT Afshan Shafer PA-C LABORATORY [facility] [address] [address] * (ABNORMAL) CBC WITH PLATELET (12/08/2023 4:47 PM CDT) Only the most recent of4 resultswithin the time period is included. WBC 10.39(H) 4.00 - 10.00 k/cmm [facility] RBC 3.59(L) 4.60 - 6.00 m/cmm [facility] Hgb 9.8(L) 13.1 - 17.5 g/dL [facility] Hematocrit 30.8(L) 40.0 - 51.0 % [facility] MCV 85.8 80.0 - 100.0 fL [facility] MCH 27.3 25.0 - 32.0 pg [facility] MCHC 31.8 31.0 - 36.0 g/dL [facility] RDW 13.5 11.5 - 14.5 % [facility] Plt 314 150 - 400 k/cmm [facility] MPV 9.3 6.5 - 12.5 fL [facility] Blood 12/08/2023 4:47 PM CDT 12/08/2023 5:07 PM CDT Afshan Shafer PA-C LABORATORY [facility] [address] [address] * (ABNORMAL) TISSUE CULTURE:INCLUDES GRAM STAIN (12/08/2023 7:51 AM CDT) Only the most recent of2 resultswithin the time period is included. Final Report Positive Culture Few METHICILLIN RESISTANT Staphylococcus aureus (MRSA) isolated. 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 For susceptibility, see previous report on culture from wound culture collected 12/07/23. (POS) [facility] Organism METHICILLIN RESISTANT STAPHYLOCOCCUS AUREUS (MRSA)(POS) [facility] Gram Stain Report Corrected Report Positive Gram stain Rare PMN's seen. Rare gram positive cocci. Gram stain electronically reported to and acknowledged by: Dr. Healy Marker from OR at ??12/08/2023 10:09:09 by Jacklyn Easley MLS. Removed Pleomorphic gram variable bacilli from report. Results electronically reported to and acknowledged by: Dr. Igor Marquez [facility] [place] 12/09/2023 12:48:27. Elizabeth Schwartz MLS. (POS) [facility] Bone STRUCTURE OF LEFT FOOT / Unknown 12/08/2023 7:51 AM CDT 12/08/2023 9:00 AM CDT Comment:2. Bone first metata rsal left foot Che Mullent DPM LAB MICROBIOLOGY Performing Organization Address [facility] Co de Phone Number [facility] [address] [address] * FUNGUS CULTURE:INCLUDES SUHAS (12/08/2023 7:51 AM CDT) Only the most recent of2 resultswithin the time period is included. Final Report No fungus isolated. [facility] SUHAS Prep No fungal elements seen. [facility] Bone STRUCTURE OF LEFT FOOT / Unknown 12/08/2023 7:51 AM CDT 12/08/2023 9:00 AM CDT Comment:2. Bone first metata rsal left foot Chekatelin Jonbitt DP LAB MICROBIOLOGY Performing Organization Address [facility] Co de Phone Number [facility] [address] [address] * ANAEROBE CULTURE (12/08/2023 7:51 AM CDT) Only the most recent of2 resultswithin the time period is included. Final Report No anaerobes isolated. [facility] Bone STRUCTURE OF LEFT FOOT / Unknown 12/08/2023 7:51 AM CDT 12/08/2023 9:00 AM CDT Comment:2. Bone first metata rsal left foot Che Torres Beth DPM LAB MICROBIOLOGY Performing Organization Address [facility] Co de Phone Number [facility] [address] [address] * EXTRA TUBE - DARK GREEN (12/07/2023 4:05 PM CDT) DARK GREEN TUBE Stored [facility] Comment:Dark Green tubes (Li thium Heparin) are stored in the lab for 1 day from the collection date. Blood 12/07/2023 4:05 PM CDT 12/07/2023 4:24 PM CDT Eusebio Vivar MD LABORATORY [facility] [address] [address] * EXTRA TUBE - BLUE (12/07/2023 4:05 PM CDT) BLUE TUBE [facility] Comment:Blue top(Sodium citr ate) tubes are kept for 3 days from the collection date. Blood 12/07/2023 4:05 PM CDT 12/07/2023 4:24 PM CDT Eusebio Vivar MD LABORATORY Performing Organization Address City/[facility] Co de Phone Number [facility] [address] [address] * (ABNORMAL) ED CHEMISTRY LABS(NA,K,CL,CO2,GLU,CREAT,CA-IONIZED,ANION GAP) (12/07/2023 4:05 PM CDT) Sodium 139 135 - 148 mmol/L [facility] Chloride 97 92 - 108 mmol/L [facility] AnGap 15 8 - 16 mmol/L [facility] Glucose 284(H) 70 - 100 mg/dL [facility] ICA, Actual 4.89 4.40 - 5.20 mg/dL [facility] ICA, pH Corrected 4.74 4.40 - 5.20 mg/dL [facility] Creatinine 1.26(H) 0.70 - 1.25 mg/dL [facility] BICARB 26 22 - 26 mEq/L [facility] eGFR (2020 CKD-EPI) 72 >=60 ml/min/1.7 3m2 [facility] Comment: The estimated glomerular filtration rate (eGFR) was calculated using the CKD-EPI 2020 creatinine equation, which does not include race as a factor. This equation is validated in individuals 18 years of age and older, and eGFR is normalized to a body surface area of 1.73m^2. Potassium 4.5 3.5 - 5.3 mmol/L [facility] Blood 12/07/2023 4:05 PM CDT 12/07/2023 4:27 PM CDT Eusebio Vivar MD LABORATORY Performing Organization Address [facility] Co de Phone Number [facility] [address] [address] * LACTATE (LACTIC ACID) (12/07/2023 4:05 PM CDT) Lactate 2.1 0.7 - 2.1 mmol/L [facility] Blood 12/07/2023 4:05 PM CDT 12/07/2023 4:27 PM CDT Narrative [facility] - 12/07/2023 4:27 PM CDT Send specimen on ice! Eusebio Vivar MD LABORATORY Performing Organization Address [facility] Co de Phone Number [facility] [address] [address] * BLOOD AEROBIC/ANAEROBIC CULTURE (12/07/2023 4:05 PM CDT) Final Report No growth after 5 days. [facility] Blood (Peripheral) 12/07/2023 4:05 PM CDT 12/07/2023 7:55 PM CDT Eusebio Vivar MD LAB MICROBIOLOGY Performing Organization Address [facility] de Phone Number [facility] [address] [address] * (ABNORMAL) WOUND CULTURE:GRAM STAIN OPTIONAL (12/07/2023 3:00 PM CDT) Final Report Rare METHICILLIN RESISTANT Staphylococcus aureus (MRSA) isolated. 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 Rare Corynebacterium striatum group isolated. A member of the diphtheroid bacilli. (POS) [facility] Organism METHICILLIN RESISTANT STAPHYLOCOCCUS AUREUS (MRSA)(POS) [facility] Organism CORYNEBACTERIUM STRIATUM GROUP(POS) [facility] Gram Stain Report No PMN's seen. No organisms seen. [facility] Swab STRUCTURE OF LEFT FOOT / Unknown 12/07/2023 3:00 PM CDT 12/07/2023 5:23 PM CDT Narrative [facility] - 12/10/2023 10:38 AM CDT Left [...] Vancomycin MICROSCAN JORDY 1: Sensitive Che Campos [facility] MICROBIOLOGY [facility] [address] [address] * (ABNORMAL) CYSTATIN C (11/22/2023 9:23 AM CDT) Cystatin C 1.43(H) 0.61 - 0.95 mg/L [facility] eGFR by Cystatin C 51(L) >=60 ml/min/1.7 3m2 [facility] Comment: Estimated GFR calculated using the CKD-EPI Cystatin C (2012) equation. Stage ? Description ?eGFR Range ??1.......Normal or increased eGFR.......90 or Greater ??2.......Mildly decreased eGFR..........60-89 ??3.......Moderately decreased eGFR......30-59 ??4.......Severely decreased eGFR........15-29 ??5.......Kidney Failure.................Less than 15 Blood 11/22/2023 9:23 AM CDT 11/22/2023 2:05 PM CDT Zac Jackson MD LABORATORY [facility] [address] [address] * HIV COMBO (11/15/2023 7:39 AM CDT) HIV Antigen-Antibody Nonreactive Nonreactive [facility] Comment:Performance characte ristics have not been established with this test on patients less than 2 years of age. Blood 11/15/2023 7:39 AM CDT 11/15/2023 7:58 AM CDT Zac Jackson MD LABORATORY [facility] [address] [address] from Last 3 Months or Most Recently Relevant to Health Maintenance Additional Health Concerns Infection Onset Date Last Indicated MRSA 11/17/2023 12/08/2023 Advance Directives For more information, please contact: [phone] * Full Code (Latest Code Status on [...]
--- OUTSIDE RECORDS SUMMARY | 2024-02-21 09:01 | XMS_ITS | Encounter Summary ---
Author Organization [facility] Address [address] [facility] [place] [address] Phone Care Team Providers Care Licensed Embalmer Supervisor Name Role Phone Unavailable Primary Care Provider Unavailabl e Encounter Details Date Type Department Care Team (Latest Contact Info) Description 01/11/2024 10:01 AM CDT - 01/11/2024 11:59 PM CDT Hospital Encounter [facility] Hyperbaric [address] [place] [address] Nikolai Martinez MD 701 [facility] [place], [place] [address] Ynzsphm, Wuy - 03664 Discharge Disposition: Discharged to home or self [...] hesitate to call the Hyperbaric Department at [phone] during clinic hours or page foreign collection clerk staff with any updates, questions, or concerns. Mayuri Hinojosa APRN, CHIEF VENDOR QUALITY, 01/11/2024 12:21 PM Continuous attending physician supervision was provided throughout the hyperbaric oxygen treatment. I have reviewed and agree with the treatment note created by Nurse Practitioner: Mayuri Hinojosa APRN, TAR KETTLE RUNNER. documented in this encounter Plan of Treatment Not on file documented as of this encounter Procedures Procedure Name Priority Date/Time Associated Diagnosis Comments POC GLUCOSE Routine 01/11/2024 10:00 AM CDT documented in this encounter Results * (ABNORMAL) POC GLUCOSE (01/11/2024 10:00 AM CDT) POC Glucose 362(H) 70 - 100 mg/dL [facility] Blood 01/11/2024 10:0 0 AM CDT Nikolai Martinez MD LABORATORY [facility] [address] [place] [address], documented in this encounter Visit Diagnoses Diagnosis Soft tissue infection- Primary Unspecified infectious and parasitic diseases Other acute osteomyelitis of left foot (CMS/HHS) documented in this encounter Additional Health Concerns Infection Onset Date Last Indicated Resolved Time 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
--- OUTSIDE RECORDS SUMMARY | 2024-02-21 09:01 | XMS_ITS | Encounter Summary ---
Author Organization [facility] Address [address] [place] [address] Phone Care Team Providers Care Drawing Machine Operator Name Role Phone Unavailable Primary Care Provider Unavailabl e Encounter Details Date Type Department Care Team (Late st Contact Info) Description 01/20/2024 9:54 AM CDT - 01/20/2024 11:59 PM CDT Hospital Encounter [facility] [address] [facility] 980 [place], [place] [address] SophiaDavid ward MD 701 [facility] 825 [place], [place] [address] Routine, Hbo - [id number] Discharge Disposition: Discharged to home or self [...] hesitate to call the Hyperbaric Department at [phone] during clinic hours or page concrete fence builder staff with any updates, questions, or concerns. Associated attestation - David Cortes MD - 01/20/2024 2:49 PM CDT Continuous attending physician supervision was provided throughout the hyperbaric oxygen treatment.I have reviewed and agree with treatment note created by the Hyperbaric Medicine Fellow, Dr. Mcconnell. David Cortes MD, 01/20/2024 2:49 PM * David Cortes MD - 01/20/2024 10:30 AM CDT [facility] HYPERBARIC MEDICINE TREATMENT SUMMARY Consulting physician: Dr. [...] urged continued close follow up with his Engineering Illustrator for local wound care and monitoring. We noted our availability should future concern of complicated wound develop or as needed surrounding and in support of surgical interventions. Please do not hesitate to call the Hyperbaric Department at [phone] during clinic hours or page concrete fence builder staff with any updates, questions, or concerns. Kit Mcconnell MD Hyperbaric Medicine Fellow I reviewed, edited and agree with the treatment summary. David Cortes MD, 01/20/2024 2:51 PM documented in this encounter Plan of Treatment Not on file documented as of this encounter Visit Diagnoses Diagnosis Soft tissue infection- Primary Unspecified infectious and parasitic diseases Other acute osteomyelitis of left foot ([facility]) documented in this encounter Additional Health Concerns Infection Onset Date Last Indicated Resolved Time 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
--- OUTSIDE RECORDS SUMMARY | 2024-02-21 09:01 | XMS_ITS | Encounter Summary ---
Author Organization [facility] Address [address] [place] [address] Phone Care Team Providers Care Dry Wall Plasterer Name Role Phone Unavailable Primary Care Provider Unavailabl e Encounter Details Date Type Department Care Team (Latest Contact Info) Description 01/17/2024 9:42 AM CDT - 01/17/2024 11:59 PM CDT Hospital En[place] [facility] [place] 701 [facility] 980 [place] [address] Masters, Douglas Osuna II, MD 701 [facility] 825 [place], [place] [address] Routine, Nfd - [id number] Discharge Disposition: Discharged to home or self [...] multiple numbers for his convenience locally in [place] for evaluation. HPI, problem list, nursing notes, [...] hesitate to call the Hyperbaric Department at [phone] during clinic hours or page store product demonstrator staff with any updates, questions, or concerns. [...] POC Glucose 288(H) 70 - 100 mg/dL [facility] Blood 01/17/2024 12:1 9 PM CDT Douglas Morris II, MD LABORATORY [facility] [address] [place] [address], * (ABNORMAL) POC GLUCOSE (01/17/2024 9:59 AM CDT) POC Glucose 323(H) 70 - 100 mg/dL [facility] Blood 01/17/2024 9:59 AM CDT Narrative Authorizing Provider Result Kiki Morris II, MD LABORATORY Performing Organization Address City/State/[facility] Co de Phone Number [facility] [address] [place] [address], documented in this encounter Visit Diagnoses Diagnosis Soft tissue infection- Primary Unspecified infectious and parasitic diseases Other acute osteomyelitis of left foot ([facility]) documented in this encounter Administered Medications [...]
--- OUTSIDE RECORDS SUMMARY | 2024-02-21 09:01 | XMS_ITS | Encounter Summary ---
Author Organization [facility] Address [address] [place] [address] Phone Care Team Providers Care Baggage Handling Supervisor Name Role Phone Unavailable Primary Care [...]
--- OUTSIDE RECORDS SUMMARY | 2024-02-21 09:02 | XMS_ITS | Encounter Summary ---
Author Organization [facility] Address [address] [place] [address] Phone Care Team Providers Care Station Cook Name Role Phone Unavailable Primary Care Provider [...]
--- OUTSIDE RECORDS SUMMARY | 2024-02-21 09:02 | XMS_ITS | Encounter Summary ---
Author Organization [facility] Address [address] [place] [address] Phone Care Team Providers Care Environmental Resource Specialist Name Role Phone Unavailable Primary Care [...]
--- OUTSIDE RECORDS SUMMARY | 2024-02-21 09:02 | XMS_ITS | Encounter Summary ---
Author Organization [facility] Address [address] [place] [address] Phone Care Team Providers Care Cask Maker Name Role Phone Unavailable Primary Care Provider Unavailabl e Reason for Visit * Reason Comments Post Op Encounter Details Date Type Department Care Team (Late st Contact Info) Description 12/31/2023 1:00 PM CDT [facility] [address] [address] Afshan Sims, DPMorelia [address] [address] S/P foot surgery, right (Primary Dx) Discharge [...] a follow up 3 weeks at the desktop support consultant - Please schedule an appointment with orthotics at the desktop support consultant for diabetic shoes and inserts - A [...] Schizophrenia History of TBI --Patient is own [facility] Clinic plan: -Discussed postoperative course [...] left until diabetic shoes and inserts arrive -[place] paperwork completed and returned to patient Return [...]
--- OUTSIDE RECORDS SUMMARY | 2024-02-21 09:02 | XMS_ITS | Encounter Summary ---
Author Organization [facility] Address 1 [facility] [place] [address] Phone Care Team Providers Care Catering And Events Manager Name Role Phone Unavailable Primary Care Provider Unavailabl e Encounter Details Date Type Department Care Team (Latest Contact Info) Description 01/07/2024 10:06 AM CDT - 01/07/2024 11:59 PM CDT Hospital Encounter [facility] [place]baric [address] [place] [address] Maggy Horan MD [address] [place], [place] [address] [facility], Jje - [address] Discharge Disposition: Discharged to home or self [...] hesitate to call the Hyperbaric Department at [phone] during clinic hours or page credit collections specialist staff with any updates, questions, or [...] POC Glucose 344(H) 70 - 100 mg/dL [facility] POINT [facility] C[facility] Blood 01/07/2024 12:2 7 PM CDT Maggy Horan MD LABORATORY Performing Organization Address [facility] Co de Phone Number [facility] POINT OF CARE [address] [place], [place] [address], * (ABNORMAL) POC GLUCOSE (01/07/2024 10:20 AM CDT) POC Glucose 357(H) 70 - 100 mg/dL [facility] Blood 01/07/2024 10:2 0 AM CDT Maggy Horan MD LABORATORY Performing Organization Address City/[facility] Co de Phone Number [facility] POINT [facility] CARE [address] [place] [phone], documented in this encounter Visit Diagnoses Diagnosis Soft tissue infection- Primary Unspecified infectious and parasitic diseases Other acute osteomyelitis of left foot ([facility]) documented in this encounter Additional Health Concerns Infection Onset Date Last Indicated Resolved Time 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
--- OUTSIDE RECORDS SUMMARY | 2024-02-21 09:02 | XMS_ITS | Encounter Summary ---
Author Organization [facility] Address 701 [facility] [place] [address] Phone Care Team Providers Care Egg And Spice Mixer Name Role Phone Unavailable Primary Care Provider Unavailabl e Encounter Details Date Type Department Care Team (Late st Contact Info) Description 01/05/2024 Orders Only [facility] Hyperbaric [address] [place], [place] [address] Talita Patel MD 701 [place], [place] [phone] Social History Tobacco Use Types Packs/Day Years [...]
--- OUTSIDE RECORDS SUMMARY | 2024-02-21 09:02 | XMS_ITS | Encounter Summary ---
Author Organization [facility] Address [address] [place] [address] Phone Care Team Providers Care Textile Machinery Sales Representative Name Role Phone Unavailable Primary [...]
--- OUTSIDE RECORDS SUMMARY | 2024-02-21 09:02 | XMS_ITS | Encounter Summary ---
Author Organization [facility] Address 1 [facility] [place] [address] Phone Care Team Providers Care Paint Stockman Name Role Phone Unavailable Primary Care Provider Unavailabl e Encounter Details Date Type Department Care Team (Latest Contact Info) Description 01/03/2024 9:33 AM CDT - 01/03/2024 11:59 PM CDT Hospital Encounter [facility] Hyperbaric [address] [facility] 980 [place] [address] Narcisa Sanford MD 701 [place], [place] [address] Routine, Pad - [phone] Discharge Disposition: Discharged to home or self [...] hesitate to call the Hyperbaric Department at [phone] during clinic hours or page instrumentation engineer staff with any updates, questions, or [...] POC Glucose 305(H) 70 - 100 mg/dL [facility] POINT [facility] CARE Blood 01/03/2024 9:50 AM CDT Narcisa [place] MD LABORATORY [facility]INT [facility] CARE [address] [place] [address], documented in this encounter Visit Diagnoses Diagnosis [...]
--- OUTSIDE RECORDS SUMMARY | 2024-02-21 09:02 | XMS_ITS | Encounter Summary ---
Author Organization [facility] Address [address] [place] [address] Phone Care Team Providers Care Rn Acls Name Role Phone Unavailable Primary Care Provider [...]
--- OUTSIDE RECORDS SUMMARY | 2024-02-21 09:02 | XMS_ITS | Encounter Summary ---
Author Organization [facility] Address [address] [place] [address] Phone Care Team Providers Care Tree Faller Name Role Phone Unavailable Primary Care Provider Unavailabl e Encounter Details Date Type Department Care Team (Late st Contact Info) Description 01/06/2024 9:40 AM CDT - 01/06/2024 11:59 PM CDT Hospital Encounter [facility] [place] [address] [place], [place] [address] David Cortes MD 701 [facility] 825 [place], [place] [address] Discharge Disposition: Discharged to home or self [...]
--- OUTSIDE RECORDS SUMMARY | 2024-02-21 09:02 | XMS_ITS | Encounter Summary ---
Author Organization [facility] Address [address] [place] [address] Phone Care Team Providers Care Cloth Brushing And Sueding Supervisor Name Role Phone Unavailable Primary Care Provider Unavailabl e Encounter Details Date Type Department Care Team (Late st Contact Info) Description 12/30/2023 9:49 AM CDT - 12/30/2023 11:59 PM CDT Hospital En[place] [facility] [place] [address] [facility] 980 [place], [place] [address] SophiaDavid ward MD [address] [facility] 825 [place], [place] [address] Routine, Hbo - 59517 Discharge Disposition: Discharged to home or self [...] hesitate to call the Hyperbaric Department at [phone] during clinic hours or page photogrammetric compilation specialist staff with any updates, questions, or [...] POC Glucose 352(H) 70 - 100 mg/dL [facility]INT [facility] C[facility] Blood 12/30/2023 9:54 AM CDT David Cortes MD LABORATORY [facility]INT [facility] [address] [place] [address], documented in this encounter Visit Diagnoses Diagnosis Soft tissue infection- Primary Unspecified infectious and parasitic diseases Other acute osteomyelitis of left foot ([facility]) documented in this encounter Administered Medications [...]
--- OUTSIDE RECORDS SUMMARY | 2024-02-21 09:02 | XMS_ITS | Encounter Summary ---
Author Organization [facility] Address [address] [place] [address] Phone Care Team Providers Care Rn Internship Name Role Phone Unavailable Primary Care [...]
--- OUTSIDE RECORDS SUMMARY | 2024-02-21 09:02 | XMS_ITS | Encounter Summary ---
Author Organization [facility] Address [address] [place] [address] Phone Care Team Providers Care Epic Willow Analyst Name Role Phone Unavailable Primary Care Provider Unavailabl e Encounter Details Date Type Department Care Team (Late st Contact Info) Description 01/05/2024 9:32 AM CDT - 01/05/2024 11:59 PM CDT Hospital [place] [facility] [place] [address] [facility] 980 [place], [place] [address] SophiaDavid ward MD 701 [facility] 825 [place], [place] [address] Routine, Hbo - 27623 Discharge Disposition: Discharged to home or self [...] hesitate to call the Hyperbaric Department at [phone] during clinic hours or page houseperson staff with any updates, questions, or concerns. [...] POC Glucose 328(H) 70 - 100 mg/dL [facility] POINT [facility] CARE Blood 01/05/2024 9:54 AM CDT David Cortes MD LABORATORY [facility]ARE [address] [place] [address], documented in this encounter Visit Diagnoses Diagnosis Soft tissue infection- Primary Unspecified infectious and parasitic diseases Other acute osteomyelitis of left foot ([facility]) documented in this encounter Additional Health Concerns Infection Onset Date Last Indicated Resolved Time 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
--- OUTSIDE RECORDS SUMMARY | 2024-02-21 09:02 | XMS_ITS | Encounter Summary ---
Author Organization [facility] Address [address] [place] [address] Phone Care Team Providers Care Inspector Water Pollution Control Name Role Phone Unavailable Primary Care Provider Unavailabl e Encounter Details Date Type Department Care Team (Latest Contact Info) Description 01/04/2024 10:16 AM CDT - 01/04/2024 11:59 PM CDT Hospital Encounter [facility]baric 701 [facility] 980 [place] [address] Masters, [place] Osuna II, MD 701 [facility] 825 [place], [place] [address] Routine, Lxm - 79922 Discharge Disposition: Discharged to home or self [...] hesitate to call the Hyperbaric Department at [phone] during clinic hours or page leaf conditioner staff with any updates, questions, or concerns. [...] POC Glucose 340(H) 70 - 100 mg/dL [facility] - POINT OF CARE Blood 01/04/2024 10:0 3 AM CDT [place] Morris II, MD LABORATORY [facility] - POINT OF CARE [address] [place] [address], documented in this encounter Visit Diagnoses Diagnosis Soft tissue infection- Primary Unspecified infectious and parasitic diseases Other acute osteomyelitis of left foot ([facility]) documented in this encounter Additional Health Concerns Infection Onset Date Last Indicated Resolved Time 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
--- OUTSIDE RECORDS SUMMARY | 2024-02-21 09:02 | XMS_ITS | Encounter Summary ---
Author Organization [facility] Address [address] [place] [address] Phone Care Team Providers Care Closet Organizer Name Role Phone Unavailable Primary Care Provider Unavailabl e Encounter Details Date Type Department Care Team (Latest Contact Info) Description 12/31/2023 9:51 AM CDT - 12/31/2023 11:59 PM CDT Hospital Encounter [facility] Hyperbaric 701 [facility] 980 [place] [address] Masters, [place] Osuna II, MD 701 [facility] 825 [place], [place] [address] Routine, Eqc - [id number] Discharge Disposition: Discharged to home or self [...] hesitate to call the Hyperbaric Department at [phone] during clinic hours or page application systems engineer staff with any updates, questions, or [...] POC Glucose 295(H) 70 - 100 mg/dL [facility] - POINT OF CARE Blood 12/31/2023 9:57 AM CDT [place] Morris II, MD LABORATORY [facility] - POINT OF CARE [address] [place] [address], documented in this encounter Visit Diagnoses Diagnosis Soft tissue infection- Primary Unspecified infectious and parasitic diseases Other acute osteomyelitis of left foot ([facility]) documented in this encounter Administered [...]
--- OUTSIDE RECORDS SUMMARY | 2024-02-21 09:02 | XMS_ITS | Encounter Summary ---
Author Organization [facility] Address [address] [place] [address] Phone Care Team Providers Care Placement Interviewer Name Role Phone Unavailable Primary Care Provider Unavailabl e Encounter Details Date Type Department Care Team (Late st Contact Info) Description 01/06/2024 9:50 AM CDT - 01/06/2024 11:59 PM CDT Hospital Encounter [facility] Hyperbaric [address] [facility] 980 [place], [place] [phone] SophiaDavid awrd MD 701 [facility] 825 [place], [place] [address] Routine, Hbo - 75293 Discharge Disposition: Discharged to home or self [...] hesitate to call the Hyperbaric Department at [phone] during clinic hours or page compensation and benefits manager staff with any updates, questions, or [...] POC Glucose 308(H) 70 - 100 mg/dL [facility] - POINT OF CARE Blood 01/06/2024 9:52 AM CDT David Cortes MD LABORATORY [facility] - POINT OF CARE [address] [place] [address], documented in this encounter Visit Diagnoses Diagnosis Soft tissue infection- Primary Unspecified infectious and parasitic diseases Other acute osteomyelitis of left foot (CMS/HHS) documented in this encounter Additional Health Concerns Infection Onset Date Last Indicated Resolved Time 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
--- OUTSIDE RECORDS SUMMARY | 2024-02-21 09:02 | XMS_ITS | Encounter Summary ---
Author Organization [facility] Address [address] [place] [address] Phone Care Team Providers Care Curator Name Role Phone Unavailable Primary Care Provider [...]
--- OUTSIDE RECORDS SUMMARY | 2024-02-21 09:02 | XMS_ITS | Encounter Summary ---
Author Organization [facility] Address [address] [place] [address] Phone Care Team Providers Care Terminal Worker Name Role Phone Unavailable Primary Care [...]
--- OUTSIDE RECORDS SUMMARY | 2024-02-21 09:03 | XMS_ITS | Encounter Summary ---
Author Organization [facility] Address [address] [place] [address] Phone Care Team Providers Care Measurement Psychologist Name Role Phone Unavailable Primary Care Provider Unavailabl e Reason for Visit * Reason Onset Date Comments Care Coordination 12/28/2023 Called to disc us outpatient HBOT schedule Encounter Details Date Type Department Care Team (Late st Contact Info) Description 12/28/2023 Telephone [facility] Hyperbaric [address] [address] Dayanna Rodriguez RN [address] [place] [address] Care Coordination (Called to discuss outpatient HBOT [...] schedule was printedand faxed to Vannesa at [phone]. She reported that she may need x 2 days to get transport set up. documented in this encounter Plan of Treatment Not on file documented as of this encounter Visit Diagnoses Not on filedocumented in this encounter Additional Health Concerns Infection Onset Date Last Indicated Resolved Time 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
--- OUTSIDE RECORDS SUMMARY | 2024-02-21 09:03 | XMS_ITS | Encounter Summary ---
Author Organization [facility] Address [address] [place] [address] Phone Care Team Providers Care Religious Educator Name Role Phone Unavailable Primary Care Provider [...] FULL BODY CHAMBER PER 30 MINUTE INTERVAL [place] PHYS/QHP ATTN&SUPVJ HYPRBARIC OXYGEN TX/SESSION Routine, Hbo - [id number] Referral ID Status Reason Start Date Expiration Date V isits Requested Visits Authorized [id number] Auth Not Needed 12/20/2023 03/09/2024 30 30 Encounter Details Date Type Department Care Team (Latest Contact Info) Description 12/23/2023 9:33 AM CDT - 12/23/2023 11:59 PM CDT Hospital [place] [facility] [place] [address] [phone] Nikolai Martinez MD 701 [place], [place] [phone] Routine, Hbo - [id number] Discharge Disposition: Discharged to home or self [...] hesitate to call the Hyperbaric Department at [phone] during clinic hours or page vocational nurse staff with any updates, questions, or concerns. [...] POC Glucose 315(H) 70 - 100 mg/dL [facility] - POINT OF CARE Blood 12/23/2023 10:2 7 AM CDT Nikolai Martinez MD LABORATORY [facility]ARE 701 [place] [address], documented in this encounter Visit Diagnoses Diagnosis Soft tissue infection- Primary Unspecified infectious and parasitic diseases Other acute osteomyelitis of left foot ([facility]) documented in this encounter Additional Health Concerns Infection Onset Date Last Indicated Resolved Time 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
--- OUTSIDE RECORDS SUMMARY | 2024-02-21 09:03 | XMS_ITS | Encounter Summary ---
Author Organization [facility] Address [address] [place] [address] Phone Care Team Providers Care Laser Technician Name Role Phone Unavailable Primary Care [...]
--- OUTSIDE RECORDS SUMMARY | 2024-02-21 09:03 | XMS_ITS | Encounter Summary ---
Author Organization [facility] Address [address] [place] [address] Phone Care Team Providers Care Organization Development Consultant Name Role Phone Unavailable Primary Care Provider Unavailabl e Reason for Visit * Reason Comments Follow-up Encounter Details Date Type Department Care Team (Late st Contact Info) Description 12/17/2023 1:45 PM CDT [facility] [address] [address] Afshan Sims, DPMorelia [address] [id number] S/P foot surgery, right (Primary Dx) Discharge [...] Schizophrenia History of TBI --Patient is own [facility] Clinic plan: -Discussed postoperative course [...]
--- OUTSIDE RECORDS SUMMARY | 2024-02-21 09:03 | XMS_ITS | Encounter Summary ---
Author Organization [facility] Address [address] [facility] [place] [address] Phone Care Team Providers Care Pantograph Watcher Name Role Phone Unavailable Primary Care Provider Unavailabl e Encounter Details Date Type Department Care Team (Latest Contact Info) Description 12/29/2023 9:38 AM CDT - 12/29/2023 11:59 PM CDT Hospital En[place] [facility] [place] [address] [place] [address] Nikolai Martinez MD 701 [facility] [address] [place], [place] [address] [place], [place] - [phone] Discharge Disposition: Discharged to home or self [...] hesitate to call the Hyperbaric Department at [phone] during clinic hours or page extension course counselor staff with any updates, questions, or concerns. [...] POC Glucose 323(H) 70 - 100 mg/dL [facility] - POINT OF CARE Blood 12/29/2023 10:0 7 AM CDT Nikolai Martinez MD LABORATORY [facility] - POINT [facility] CARE [address] [place] [address], documented in this encounter Visit Diagnoses Diagnosis Soft tissue infection- Primary Unspecified infectious and parasitic diseases Other acute osteomyelitis of left foot ([facility]) documented in this encounter Administered Medications [...]
--- OUTSIDE RECORDS SUMMARY | 2024-02-21 09:03 | XMS_ITS | Encounter Summary ---
Author Organization [facility] Address [address] [place] [address] Phone Care Team Providers Care Addiction Specialist Name Role Phone Unavailable Primary Care [...]
--- OUTSIDE RECORDS SUMMARY | 2024-02-21 09:03 | XMS_ITS | Encounter Summary ---
Author Organization [facility] Address [address] [facility] [place] [address] Phone Care Team Providers Care Family Practitioner Name Role Phone Unavailable Primary Care Provider Unavailabl e Reason for Visit * Reason Onset Date Comments Follow-up 12/14/2023 Encounter Details Date Type Department Care Team (Late st Contact Info) Description 12/14/2023 Telephone [facility] Medicine 1 [address] [facility] R[address] [place], [place] [phone] Aretha Damon MD 701 [place], [place] [phone] Follow-up Social History Tobacco Use Types Packs/Day [...]
--- OUTSIDE RECORDS SUMMARY | 2024-02-21 09:03 | XMS_ITS | Encounter Summary ---
Author Organization [facility] Address [address] [place] [address] Phone Care Team Providers Care Molasses Preparer Name Role Phone Unavailable Primary Care Provider [...]
--- OUTSIDE RECORDS SUMMARY | 2024-02-21 09:03 | XMS_ITS | Encounter Summary ---
Author Organization [facility] Address [address] [place] [address] Phone Care Team Providers Care Public Safety Teacher Name Role Phone Unavailable Primary Care Provider [...] FULL BODY CHAMBER PER 30 MINUTE INTERVAL [place] PHYS/QHP ATTN&SUPVJ HYPRBARIC OXYGEN TX/SESSION Routine, Hbo - [id number] Referral ID Status Reason Start Date Expiration Date V isits Requested Visits Authorized [id number] Auth Not Needed 12/20/2023 03/09/2024 30 30 Encounter Details Date Type Department Care Team (Latest Contact Info) Description 12/22/2023 9:43 AM CDT - 12/22/2023 11:59 PM CDT Hospital En[place] [facility] [place] 701 [facility] 980 [place], [place] [phone] Narcisa Sanford MD 701 [place], [place] 654[address] Routine, Hbo - [id number] Discharge Disposition: Discharged to home or self [...] hesitate to call the Hyperbaric Department at [phone] during clinic hours or page clothes ironer staff with any updates, questions, or concerns. Continuous attending physician supervision was provided throughout the hyperbaric oxygen treatment.I have reviewed and agree with treatment note created by the Hyperbaric Medicine Nurse Practitioner, Mayuri Hinojosa APRN, RECREATIONAL THERAPY TECHNICIAN. Narcisa Sanford MD, 12/22/2023 3:23 PM documented in this encounter Plan of Treatment Not on file documented as of this encounter Procedures Procedure Name Priority Date/Time Associated Diagnosis Comments POC GLUCOSE Routine 12/22/2023 9:48 AM CDT documented in this encounter Results * (ABNORMAL) POC GLUCOSE (12/22/2023 9:48 AM CDT) POC Glucose 318(H) 70 - 100 mg/dL [facility] - POINT OF CARE Blood 12/22/2023 9:48 AM CDT Nikolai Martinez MD LABORATORY [facility] - [facility]INT [facility]ARE [address] [place] [address], documented in this encounter Visit Diagnoses Diagnosis Soft tissue infection- Primary Unspecified infectious and parasitic diseases Other acute osteomyelitis of left foot ([facility]) documented in this encounter Additional Health Concerns Infection Onset Date Last Indicated Resolved Time 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
--- OUTSIDE RECORDS SUMMARY | 2024-02-21 09:03 | XMS_ITS | Encounter Summary ---
Author Organization [facility] Address [address] [place] [address] Phone Care Team Providers Care Health Careers Instructor Name Role Phone Unavailable Primary Care Provider Unavailabl e Reason for Visit * Reason Comments Wound Encounter Details Date Type Department Care Team (Late st Contact Info) Description 12/27/2023 9:00 AM CDT Nurse Only [facility] [address] [address] Afshan Sims, DPMorelia [address] [phone] Discharge Disposition: Discharged to home or self [...] on Original Admission: Yes Location:Groin Site Assessment Granular;[place] Rain-Wound Assessment Intact Tunneling or undermining present? [...]
--- OUTSIDE RECORDS SUMMARY | 2024-02-21 09:03 | XMS_ITS | Encounter Summary ---
Author Organization [facility] Address 1 [place] [address] Phone Care Team Providers Care Patient Services Manager Name Role Phone Unavailable Primary Care [...] FULL BODY CHAMBER PER 30 MINUTE INTERVAL [place] PHYS/QHP ATTN&SUPVJ HYPRBARIC OXYGEN TX/SESSION Routine, Hbo - [id number] Referral ID Status Reason Start Date Expiration Date V isits Requested Visits Authorized [id number] Auth Not Needed 12/20/2023 03/09/2024 30 30 Encounter Details Date Type Department Care Team (Latest Contact Info) Description 12/20/2023 9:34 AM CDT - 12/20/2023 11:59 PM CDT Hospital Encounter [facility]baric 701 [facility] 980 [place], [place] [address] Shawn Vines MD 701 [facility] 825 [place], [place] [address] Routine, Hbo - [id number] Discharge Disposition: Discharged to home or self [...] hesitate to call the Hyperbaric Department at [phone] during clinic hours or page injection maintenance technician staff with any updates, questions, or concerns. Continuous attending physician supervision was provided throughout the hyperbaric oxygen treatment.I have reviewed and agree with treatment note created by Lor Hinojosa APRN, [employer]. Shawn Vines MD, 12/20/2023 12:49 PM documented in this encounter Plan of Treatment Not on file documented as of this encounter Procedures Procedure Name Priority Date/Time Associated Diagnosis Comments POC GLUCOSE Routine 12/20/2023 12:28 PM CDT POC GLUCOSE Routine 12/20/2023 10:06 AM CDT documented in this encounter Results * (ABNORMAL) POC GLUCOSE (12/20/2023 12:28 PM CDT) POC Glucose 265(H) 70 - 100 mg/dL [facility] [place] - POINT OF CARE Blood 12/20/2023 12:2 8 PM CDT Shawn Vines MD LABORATORY Performing Organization Address City/[facility]/ZIP Co de Phone Number [facility] 701 [place] [address], * (ABNORMAL) POC GLUCOSE (12/20/2023 10:06 AM CDT) POC Glucose 284(H) 70 - 100 mg/dL [facility] Blood 12/20/2023 10:0 6 AM CDT Shawn Vines MD LABORATORY Performing Organization Address [facility] de Phone Number [facility] 701 [place] [address], [place] documented in this encounter Visit Diagnoses Diagnosis Soft tissue infection- Primary Unspecified infectious and parasitic diseases Other acute osteomyelitis of left foot ([facility]) documented in this encounter Administered Medications Inactive [...]
--- OUTSIDE RECORDS SUMMARY | 2024-02-21 09:03 | XMS_ITS | Encounter Summary ---
Author Organization [facility] Address [address] [place] [address] Phone Care Team Providers Care Certified Medical Asst Name Role Phone Unavailable Primary Care Provider [...]
--- OUTSIDE RECORDS SUMMARY | 2024-02-21 09:03 | XMS_ITS | Encounter Summary ---
Author Organization [facility] Address [address] [place] [address] Phone Care Team Providers Care Highway Patrol Officer Name Role Phone Unavailable Primary Care [...]
--- OUTSIDE RECORDS SUMMARY | 2024-02-21 09:03 | XMS_ITS | Encounter Summary ---
Author Organization [facility] Address [address] [place] [address] Phone Care Team Providers Care Photo Tech Name Role Phone Unavailable Primary Care Provider Unavailabl e Reason for Visit * Reason Comments Consult Encounter Details Date Type Department Care Team (Late st Contact Info) Description 12/24/2023 10:00 AM CDT Office Visit [facility] [address] [phone] 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, INSOLVENCY CONSULTANT, ROUTE RELIEF DRIVER 701 [place] [address] 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); [...] area dry. Okay to discharge to Home [facility] if there is somebody who can do dressing changes daily. Appointment has been made for follow-up on 01/28/2024 documented in this encounter Progress Notes * 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 APRN, PATRICIA - 12/24/2023 10:00 AM CDT Images from the original note were not included. [facility] PROVID[facility] SURGERY CLINIC VISIT NOTE - WARM IN WORKER Stephanie Low : 1980 Sex: male Plan : Continue wet-to-dry dressing changes with Vashe to the groin incision. With the each dressing change; make sure the groin area is clean and dry. Utilize Interdry to keep abdominal fluids and groin dry Okay for patient to discharge Home [facility] if help is available to change the [...] No 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 APRN, CNP 12/24/2023 13:40 [facility] Department of Surgery Pager: via telemSchedulicity I have spent 30 minutes with this patient today in which greater than 50% of this time was spent incounseling/coordination of care regarding in patient care, review of imaging/labs, chart review andconsultant recommendations. Dictation Disclaimer: Some notes are completed with voice-recognition dictation software. Errors are generally corrected in real time. Please contact me via [employer] staff message if you note any errors [...]
--- OUTSIDE RECORDS SUMMARY | 2024-02-21 09:03 | XMS_ITS | Encounter Summary ---
Author Organization [facility][Note 3] Address [address] [place] [address] Phone Care Team Providers Care Capsule Filler Name Role Phone Unavailable Primary Care Provider [...]
--- OUTSIDE RECORDS SUMMARY | 2024-02-21 09:04 | XMS_ITS | Encounter Summary ---
Author Organization 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[facility]) Clint Barber MD [address] [address] Referral ID Status Reason Start Date Expiration Date V isits Requested Visits Authorized [id number] New Request 12/14/2023 12/14/2024 1 1 * Consult/Test/Treat (Routine) - New Request Specialty Diagnoses / Procedures Referred By Contac t Referred To Contact Diagnoses Soft tissue infection Igor Glover MD [address] [address] PATIENT CHOICE Referral ID Status Reason Start Date Expiration Date V isits Requested Visits Authorized [id number] New Request 12/12/2023 12/12/2024 1 1 * Consult/Test/Treat (Routine) - New Request Specialty Diagnoses / Procedures Referred By Contac t Referred To Contact Physical Therapy / PHYSICAL THERAPY Diagnoses Soft tissue infection Igor Glover MD [address] [address] PATIENT CHOICE Referral ID Status Reason Start Date Expiration Date V isits Requested Visits Authorized [id number] New Request 12/12/2023 12/12/2024 1 1 Reason for Visit * Auth/Cert (Routine) Specialty Diagnoses / Procedures Referred By Contmini t Referred To Contact SURGERY Diagnoses Other acute osteomyelitis of left foot ([facility]) Eusebio Vivar MD [address] [place] [address] Or P4 [address] [place] [address] Referral ID Status Reason Start Date Expiration Date Visits Re quested Visits Authorized [id number] 1 1 Encounter Details Date Type Department Care Team (Latest Contact Info) Description 12/07/2023 3:48 PM CDT - 12/14/2023 12:38 PM CDT Hospital Encounter [facility] Orthopaedic 701 [facility] G3.220 [place], [place] [phone] Eusebio Vivar MD [address] [place] [address] Mirta Urena MD [address] [place] [place] [address] [id number] Suzy Shafer PA-C [address] [place] [address] [phone] Igor Glover MD [address] [phone] Clint Barber MD [address] [place] [phone] Other acute osteomyelitis of left foot ([facility]) Discharge Disposition: Discharged/transd to home (care [...] on discharge due to cost/transport issues at [place]. HOSPITAL COURSE BY PROBLEM: Acute osteomyelitis of [...] 12/12 - discussed with PharmD. HTN: Continue HAND WELT BUTTER amlodipine. Hyperlipidemia: Continue HAND WELT BUTTER rosuvastatin. Tobacco use disorder: Continue NRT. Hx of TBI. Malnutrition Weight: (!) 139.9 kg (308 lb 6.8 oz) Wt Change from Previous: 0 Kg Wt Change from Admit: 0 Kg % Wt Change from Adm: 0 % [place] Body Wt (IBW) Male (kg): 75.3 kg [...] Comments: Fax to Dr. Aretha Damon at [phone] PANEL HEPATIC FUNCTION Standing Status: Future Standing Exp. Date: 03/13/24 Order Comments: Fax to Dr. Aretha Damon at [phone] Scheduling Instructions: Hepatic Function Panel includes: Albumin, Alk Phos, ALT, AST, Direct Bilirubin, Total Bilirubin and Total Protein C-REACTIVE PROTEIN Standing Status: Future Standing Exp. Date: 03/13/24 Order Comments: Fax to Dr. Aretha Damon at [phone] CREATININE, SERUM Standing Status: Future Standing Exp. Date: 03/13/24 Order Comments: Fax to Dr. Aretha Damon at [phone] Referral to Physical Therapy Referral Priority: Routine [...] Yes Okay for [facility] Facility standing orders? Order Specific Question Answer Comments OK for [facility] Facility house standing orders? Yes Give Mantoux unless current or contraindicated. Scheduling Instructions: Please specify in comments! Resume previous standing orders per usp policy Order Comments: Resume previous standing orders per usp policy Scheduling Instructions: Please specify in comments! [...] equipment/supplies recommended: None Final discharge destination: Subacute usp with rehab care R: The patient and [...] hesitate to call the Hyperbaric Department at [phone] during clinic hours or page sort operations supervisor staff with any updates, questions, or concerns. [...] is medically ready for discharge back to [facility] since 12/11. Spoke to Tabatha at [facility] today ([phone]) who reported that the patient was not [...] () of patient departure: 12/13/2023 @1530 Destination: [facility] Apartment List [place], [place] Type of ride: wheelchair Transportation vendor of ride: [facility] [phone] * If this ride needs to be [...] Clinical Coordinators will be informed via a [employer] page. PCS form was completed in Progress [...] infection Attending provider: Igor Glover MD Insurance: [employer] Secondary insurance: [place] [employer] Height: Height: 180.3 cm (5' [...] hesitate to call the Hyperbaric Department at [phone] during clinic hours or page sort operations supervisor staff with any updates, questions, or concerns. [...] 12/12 - discussed with PharmD. HTN: Continue HAND WELT BUTTER amlodipine. Hyperlipidemia: Continue HAND WELT BUTTER rosuvastatin. Tobacco use disorder: Continue NRT. Hx of TBI. FEN: Regular consistent carb diet. Code status: Full code. VTE prophylaxis: VTE prophylaxis with lovenox to start 12/10. Lines: No central line. No mujica. Discharge planning: Discharg to [facility] in [place] when they're able to accept him back.Possibly [...] Discharge Goals: Patient's Discharge Goal: back to [facility]' Discharge Goal: n/a Discharge Destination Expected [...] Selected Services Address Phone Fax Patient Preferred [facility] Pending - No Request Sent N/A [id number] [facility] [phone] -- Narcisa Tobar LGSW, 12/12/2023 9:50 AM * Aretha Damon MD - 12/12/2023 8:53 AM CDT ID PROGRESS NOTE Stephanie Low 1980 male [id number] ASSESSMENT: MRSA left foot osteomyelitis S/p I&D [...] 12/12 - discussed with PharmD. HTN: Continue HAND WELT BUTTER amlodipine. Hyperlipidemia: Continue HAND WELT BUTTER rosuvastatin. Tobacco use disorder: Continue NRT. Hx of TBI. FEN: Regular consistent carb diet. Code status: Full code. VTE prophylaxis: VTE prophylaxis with lovenox to start 12/10. Lines: No central line. No mujica. Discharge planning: Discharg to [facility] in [place] when they're able to accept him back.Possibly [...] Glover MD, 12/11/2023 7:34 PM Page via [email or web address] * Eusebio Perez, PharmD - 12/11/2023 3:38 [...] recent) Eusebio Perez, Jaxon 12/11/2023 19:22 Pager: ([facility]) * Lizbeth Cavazos LICSW - 12/11/2023 2:41 PM CDT Weekend Inpatient Social Work Note Summary: Weekend SW paged by bedside RN to help facilitate coordination back to TCU today. GARY called [facility] Ag[facility] and left a voicemail. Many barriers are at play for a weekend return - patient hasIV antibiotics, he is recommended to receive 20 HBO sessions (1st today), and has [facility] Medicare Advantage (which requires prior authorization). GARY advised this likely cannot be resolved during the weekend due to the barriers listed above. Follow up needed: GARY will try to problem solve if [facility] calls back, if not weekday team to follow up on plan for discharge. RAJ Cadena, PLACIDO Inpatient Telephone Information Supervisor - Casual (weekends only) Available via [employer] Lizbeth Cavazos LICSW, 12/11/2023 2:41 PM Addendum [...] hesitate to call the Hyperbaric Department at [phone] during clinic hours or page sort operations supervisor staff with any updates, questions, or concerns. [...] of TBI --Patient is own [facility] RECOMMENDATIONS: 1. Dressing: Dressed with Betadine [...] continue to follow while admitted. Please page sort operations supervisor resident with questions. Patient was discussed with sort operations supervisor staff Interval history: Patient seen and evaluated [...] 12/12 - discussed with PharmD. HTN: Continue HAND WELT BUTTER amlodipine. Hyperlipidemia: Continue HAND WELT BUTTER rosuvastatin. Tobacco use disorder: Continue NRT. Hx of TBI. FEN: Regular consistent carb diet. Code status: Full code. VTE prophylaxis: VTE prophylaxis with lovenox to start 12/10. Lines: No central line. No mujica. Discharge planning: Discharged to [facility] on 11/24 after admission for Demar's [...] Glover MD, 12/10/2023 2:18 PM Page via [email or web address] * Denise Esteves RN - 12/10/2023 11:57 AM CDT Clinical Coordinator Note: 12/10/23 1156 Rapid Rounds Attendance Physician;Charge nurse;group product manager;freezing room worker;Bedside nurse Expected Discharge Disposition SNF Today [...] to discharge. Denise Esteves Inpatient Clinical Coordinator [facility] Office: [phone] * Suzy Patino DPM - 12/10/2023 8:42 [...] of TBI --Patient is own [facility] RECOMMENDATIONS: 1. Dressing: Dressed in OR [...] continue to follow while admitted. Please page sort operations supervisor resident with questions. Patient was discussed with sort operations supervisor staff Interval history: Patient seen resting comfortably [...] 12/12 - discussed with PharmD. HTN: Continue HAND WELT BUTTER amlodipine. Hyperlipidemia: Continue HAND WELT BUTTER rosuvastatin. Tobacco use disorder: Continue NRT. Hx of TBI. FEN: Regular consistent carb diet. Code status: Full code. VTE prophylaxis: VTE prophylaxis with hep to start 12/08. Lines: No central line. No mujica. Discharge planning: Discharged to [facility] on 11/24 after admission for Demar's [...] Glover MD, 12/09/2023 10:33 PM Page via [email or web address] * David Mancuso, PharmD - 12/09/2023 3:54 [...] 12/09/2023 Expected DC Date: 12/10/2023 Social Information Production Assistant Used: None needed Decision Maker at Admission: Self Living Situation: [facility] (see comment) Patient Identified Support System: sister, significant other Services Receiving: Waivered services (see comment) Complex Medical Needs: Other (see comment) (wound care) Transportation Used for Discharge: stretcher Safety Concerns: None Behavioral Health Concerns: None Patient Family Goals Patient's Discharge Goal: back to [facility] Family's Discharge Goal: n/a Plan/Interventions Expected Discharge Disposition: [facility] Facility Patient Information Verification Verified demographic information, including SSN, Next of Kin, and Guardianship: Yes Verified PCP: Yes If post-acute placement is needed, have vaccination status needs been addressed?: Not applicable Risks for Readmission: None Summary of pertinent information: Patient admitted from [facility] with concern for a left great to osteomyelitis that was resected 12/07. 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 Have a call out to [facility] to confirm bed hold ([phone]). Spoke to staff at his [facility] ([place]ie [phone]) to also update and confirm that he can return there when ultimately. Patient currently has started on HBO, this may be problematic with returning to [facility]. Emily Hannah RN, 12/09/2023 1:49 PM [...] of TBI --Patient is own [facility] RECOMMENDATIONS: 1. Dressing: Dressed with Vashe [...] continue to follow while inpatient Please page sort operations supervisor resident with questions. Patient was discussed with sort operations supervisor staff Interval history: Patient seen and evaluated [...] of TBI --Patient is own [facility] RECOMMENDATIONS: 1. Dressing: Dressed in operating [...] continue to follow while inpatient Please page sort operations supervisor resident with questions. Patient was seen with sort operations supervisor staff, Dr. Palomo Interval history: Patient is [...] osteomyelitis of leftfoot ([facility]) . Patient: alert, oriented to person, [...] informed of Patient Valuables and Belongings Policy (#[id number]): Policy reviewed - patient/family/designee has indicated that [...] 12/12 - discussed with PharmD. HTN: Continue HAND WELT BUTTER amlodipine. Hyperlipidemia: Continue HAND WELT BUTTER rosuvastatin. Tobacco use disorder: Continue NRT. Hx of TBI. FEN: Regular consistent carb diet. Code status: Full code. VTE prophylaxis: VTE prophylaxis with hep to start 12/08. Lines: No central line. No mujica. 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 [...] -F/up cultures currently in process -NPO at [place], holding VTE ppx -AM BMP, CBC, CRP, ESR Chronic / Stable / Resolved / Ruled Out #T2DM: A1c 6.8% 07/2023. Reduce HAND WELT BUTTER lantus to 15 U while NPO, Novolog 1U/CHO + LDSSI. Rechecking A1c. #HTN: HAND WELT BUTTER amlodipine 10 mg daily #HLD: HAND WELT BUTTER statin #Paranoid schizophrenia: HAND WELT BUTTER prazosin #HILL: HAND WELT BUTTER escitalopram 20 mg daily #Tobacco use disorder: [...] including pre-visit review of separately obtained history, [id number] interaction performing medically appropriate physical exam, patientcounseling/education, interpretation of diagnostic results, care coordination and documentation was55 minutes. Mirat Urena MD, 12/07/2023 10:45 PM documented in [...] surgery and sign off. 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 Discharge [...] wound healing. Message sent to primary team. [facility] Nursing follow up: Appreciate the opportunity to consult on this patient, Wound Ostomy Continence Services will sign off at this time. Please place additional 'Wound Consult' if wanting further assessment for this patient. Staff to continue to follow skin injury bundle. Escalate concerns to WOCN through additional consult or to the provider when barriers are identified. WOCN available Wednesday through Wednesday on [employer] or [phone] [facility] Nursing attempts to see patients in [...] on service at PharmD General Weekend Days ([employer]) or [phone]. If no response within needed timeframe, please contact central pharmacy via phone at [phone]. Planned discharge medications are: Medication List Medications [...] NEW CONSULT NOTE Stephanie Low 1980 male [id number] REASON FOR CONSULT: I was asked to [...] Prior to recent hospitalization pt lived at retirement with elevator. Was independent with mobility SUBJECTIVE [...] bearing restrictions, otherwise bed to chair only HAND WELT BUTTER Appropriate: No (more OR) Participated in goal setting and treatment planning: Patient Agrees with goals and treatment plan: Question patient's ability to understand. Gracia Arredondo, PT 12/10/2023 Pager: [facility] PT Department * David Cortes MD - 12/09/2023 9:58 AM CDT Images from the original note were not included. [facility] HYPERBARIC MEDICINE CONSULTATION Referring clinician: Che Palomo [...] old poorly controlled DMII male referred to [facility] Hyperbaric medical team for consultation regarding concern [...] sex Other acute osteomyelitis of left foot ([facility]) Past Surgical History: Procedure Laterality Date TOE [...] not hesitate to call the department at [phone] during clinic hours (M-F [phone]) or page the sort operations supervisor HYPERBARIC staff with any questions or concerns. [...] allowing us to participate in [facility]. [place] [facility]: [phone]. David Cortes MD * Angela Cardenas CWOCN - 12/08/2023 3:00 PM CDTAssociated Order(s): CONSULT TO WOUND NURSE Images from the original note were not included. [facility] Nursing consulted by nursing for perineal wounds. 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 Discharge [...] wound healing. Message sent to primary team. [facility] Nursing follow up: later this week after surgery sees Staff to continue to follow skin injury bundle. Escalate concerns to WOCN through additional consult or to the provider when barriers are identified. WOCN available Wednesday through Wednesday on [employer] or [phone] [facility] Nursing attempts to see patients in [...] of TBI --Patient is own [facility] RECOMMENDATIONS: 1. Dressing: Daily dressing changes [...] continue to follow while inpatient Please page sort operations supervisor resident with questions. Patient was seen with sort operations supervisor staff, Dr. Palomo CHIEF COMPLAINT: Left foot [...] OR Date: 12/10/2023 Surgeon: Suzy Patino DPM Lithograph Press Feeder(s): Samina Singletary DPM PGY3 Pre-Op Diagnosis: Packed [...] 1980 Sex: male Surgeon: Che Palomo DPM Lithograph Press Feeder(s): Niraj Lewis DPM PGY-3 Jf Sky MS-4 [...] Complications: None INDICATIONS FOR THE OPERATION: Stephanie oLw is a 43 y.o. male admitted for [...] 2023 2242 Started nicotine gum PRN Started HAND WELT BUTTER glargine and lispro The patient remained in the emergency department through the end of my shift. Their care was signedout [id number] with the oncoming provider. Dx, DDx, Assessment and Plan was discussed with Attending Emergency Medicine Physician. Final Clinical Impression 1. Other acute osteomyelitis of left foot ([facility]) Disposition and Plan Signed out to [...] in real time. Please contact me via [facility] staff message if you note any errors requiring clarification. * Farida Beyer RN - 12/07/2023 7:41 PM CDT Assumed care of pt. SNF director here as pt was reported missing when he did not return back from the clinic. Plan for admission with OR tomorrow. NPO at midnight, pt aware. * Allyssa Drummond MD - 12/07/2023 4:25 PM CDT Emergency Department Physician Note [facility] HISTORY Stephanie Low is a 43 y.o. [...] of left foot ([facility]) DISPOSITION & PLAN Patient remained in [...] Toe Head to Toe Assessment Shift Summary [id number] Alert and oriented x3, unsure of the [...] Physical Therapy Inpatient Discharge Summary Stephanie Low [id number] Diagnosis Patient Active Problem List Diagnosis Fourniers [...] to Toe Assessment Shift Summary Shift Summary [id number] Pt alert oriented and able to make [...] Toe Head to Toe Assessment Shift Summary 1368-1619 Daily dressing change done per order, reported [...] Toe Head to Toe Assessment Shift Summary [id number] Alert and oriented x 4, able to [...] Toe Head to Toe Assessment Shift Summary [id number] Patient is alert and oriented x 4,RA.Vitals [...] amputation RLE - amputation Comments: R amputation HAND WELT BUTTER Integumentary Assessment Within Defined Limits except for: [...] Toe Head to Toe Assessment Shift Summary [id number] Patient is alert and oriented x 4,RA.Vitals [...] 12/10/2023 6:30 PM PGY-1 Green Surgery Pager: [phone] * Nursing Assessment - May Torres RN [...] Singletary DPM - 12/10/2023 11:06 AM CDT [facility] Immediate Post Operative Note Note written: [...] Toe Head to Toe Assessment Shift Summary [id number] Alert and oriented x3, unsure of the [...] Head to Toe Assessment Shift Summary Night [id number] PT is AO x4. 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 Drummond in [facility]. Patient Class: Inpatient Cardiac Monitoring: Not [...] designation above. Please page the MOD via [employer] with clinical updates or status changes. Note [...] of left foot ([facility]) REVISION, AMPUTATION SITE, LOWER EXTREMITY Urgent [...] POC Glucose 255(H) 70 - 100 mg/dL [facility] POINT OF CARE Blood 12/14/2023 11:2 9 AM CDT Eusebio Vivar MD LABORATORY Performing Organization Address [facility] de Phone Number [facility] [address] [address], [place] * (ABNORMAL) POC GLUCOSE (12/14/2023 6:32 AM CDT) POC Glucose 186(H) 70 - 100 mg/dL [facility] POINT OF [facility] Blood 12/14/2023 6:32 AM CDT Eusebio Vivar MD LABORATORY Performing Organization Address [facility] de Phone Number [facility] [address] [place] [address], [place] * (ABNORMAL) POC GLUCOSE (12/13/2023 9:05 PM CDT) POC Glucose 175(H) 70 - 100 mg/dL [facility] Blood 12/13/2023 9:05 PM CDT Eusebio Vivar MD LABORATORY Performing Organization Address [facility] de Phone Number [facility] POINT [facility] [address] [address], [place] * VANCOMYCIN LEVEL (12/13/2023 5:24 PM CDT) Vancomycin 17.0 mcg/mL [facility] LAB Comment:Expected Range (Trou gh): 10-20 mcg/ml Blood 12/13/2023 5:24 PM CDT 12/13/2023 5:46 PM CDT Narrative [facility] LAB - 12/13/2023 6:34 PM CDT Please ensure trough level drawn prior to next vancomycin dose. Thank you Peak or trough:->Trough Eusebio J Ana PharmD LABORATORY [facility] LAB [facility] [address] [place] [address] * (ABNORMAL) POC GLUCOSE (12/13/2023 4:00 PM CDT) POC Glucose 153(H) 70 - 100 mg/dL [facility] POINT OF CARE Blood 12/13/2023 4:00 PM CDT Eusebio Vivar MD LABORATORY Performing Organization Address City/[facility]/ZIP Co de Phone Number [facility] POINT OF CARE [address] [place] [address], [place] * (ABNORMAL) POC GLUCOSE (12/13/2023 11:47 AM CDT) POC Glucose 271(H) 70 - 100 mg/dL [facility] POINT OF CARE Blood 12/13/2023 11:4 7 AM CDT Eusebio Vivar MD LABORATORY Performing Organization Address [facility] Co de Phone Number [facility] POINT [facility] [address] [place] [address], [place] * (ABNORMAL) POC GLUCOSE (12/13/2023 6:35 AM CDT) POC Glucose 204(H) 70 - 100 mg/dL [facility] POINT OF CARE Blood 12/13/2023 6:35 AM CDT Eusebio Vivar MD LABORATORY Performing Organization Address City/[facility] Co de Phone Number [facility] POINT OF CARE [address] [place] [address], [place] * (ABNORMAL) POC GLUCOSE (12/12/2023 8:54 PM CDT) POC Glucose 170(H) 70 - 100 mg/dL [facility] POINT OF CARE Blood 12/12/2023 8:54 PM CDT Eusebio Vivar MD LABORATORY [facility] POINT OF CARE [address] [place] [address], [place] * (ABNORMAL) POC GLUCOSE (12/12/2023 4:10 PM CDT) POC Glucose 252(H) 70 - 100 mg/dL [facility] POINT OF CARE Blood 12/12/2023 4:10 PM CDT Eusebio Vivar MD LABORATORY Performing Organization Address City/[facility]/ZIP Co de Phone Number [facility] POINT OF CARE [address] [place] [address], [place] * (ABNORMAL) POC GLUCOSE (12/12/2023 11:07 AM CDT) POC Glucose 200(H) 70 - 100 mg/dL [facility] POINT OF CARE Blood 12/12/2023 11:0 7 AM CDT Eusebio Vivar MD LABORATORY Performing Organization Address [facility] Center/[facility] Co de Phone Number [facility] POINT [facility] [address] [place] [address], [place] * (ABNORMAL) POC GLUCOSE (12/12/2023 6:42 AM CDT) POC Glucose 185(H) 70 - 100 mg/dL [facility] POINT OF CARE Blood 12/12/2023 6:42 AM CDT Eusebio Vivar MD LABORATORY Performing Organization Address City/[facility]/ZIP Co de Phone Number [facility] POINT OF CARE [address] [place] [address], [place] * (ABNORMAL) POC GLUCOSE (12/11/2023 9:10 PM CDT) POC Glucose 226(H) 70 - 100 mg/dL [facility] - POINT OF CARE Blood 12/11/2023 9:10 PM CDT Eusebio Vivar MD LABORATORY [facility] - POINT OF CARE [address] [place] [address], * VANCOMYCIN LEVEL (12/11/2023 5:28 PM CDT) Vancomycin 19.6 mcg/mL [facility] Comment:Expected Range (Trou gh): 10-20 mcg/ml Blood 12/11/2023 5:28 PM CDT 12/11/2023 5:37 PM CDT Narrative [facility] - 12/11/2023 6:46 PM CDT Peak or trough:->Trough Igor Glover MD LABORATORY [facility] [address] [place] [phone] * (ABNORMAL) POC GLUCOSE (12/11/2023 4:13 PM CDT) POC Glucose 173(H) 70 - 100 mg/dL [facility] - POINT OF CARE Blood 12/11/2023 4:13 PM CDT Eusebio Vivar MD LABORATORY Performing Organization Address City/[facility]/ZIP Co de Phone Number [facility] - POINT OF CARE [address] [place] [address], [place] * (ABNORMAL) POC GLUCOSE (12/11/2023 11:43 AM CDT) POC Glucose 283(H) 70 - 100 mg/dL [facility] - POINT OF CARE Blood 12/11/2023 11:4 3 AM CDT Eusebio Vivar MD LABORATORY [facility] POINT OF CARE [address] [place] [address], [place] * (ABNORMAL) POC GLUCOSE (12/11/2023 10:28 AM CDT) POC Glucose 198(H) 70 - 100 mg/dL [facility] POINT OF CARE Blood 12/11/2023 10:2 8 AM CDT Eusebio Vivar MD LABORATORY Performing Organization Address [facility] Co de Phone Number [facility] POINT OF CARE [address] [place], [place] [phone], * (ABNORMAL) POC GLUCOSE (12/11/2023 6:41 AM CDT) [facility] POC Glucose 173(H) 70 - 100 mg/dL [facility] POINT OF CARE Blood 12/11/2023 6:41 AM CDT Eusebio Vivar MD LABORATORY Performing Organization Address [facility] de Phone Number [facility] POINT OF [facility] [address] [place], [place] [phone], [place] * (ABNORMAL) CBC WITH PLTS/AUTO DIFF (12/11/2023 5:50 AM CDT) [facility] WBC 8.72 4.00 - 10.00 k/cmm [facility] RBC 3.82(L) 4.60 - 6.00 m/cmm [facility] Hgb 10.6(L) 13.1 - 17.5 g/dL [facility] Hematocrit 32.4(L) 40.0 - 51.0 % [facility] MCV 84.8 80.0 - 100.0 fL [facility] MCH 27.7 25.0 - 32.0 pg [facility] MCHC 32.7 31.0 - 36.0 g/dL [facility] RDW 13.5 11.5 - 14.5 % [facility] Plt 400 150 - 400 k/cmm [facility] MPV 9.3 6.5 - 12.5 fL [facility] Automated Abs Neutrophil 4.22 1.70 - 6.50 k/cmm [facility] Comment:Preliminary ANC, Fin al Result to Follow Abs Immature Granulocyte 0.09 0.00 - 0.09 k/cmm [facility] Comment:The Immature Granulo cyte Absolute count contains metamyelocytes and myelocytes. Abs Neutrophil 4.22 1.70 - 6.50 k/cmm [facility] Abs Lymphocyte 2.59 0.80 - 4.00 k/cmm [facility] Abs Monocyte 1.00 0.20 - 1.00 k/cmm [facility] Abs Eosinophil 0.79(H) 0.00 - 0.60 k/cmm [facility] Abs Basophil 0.03 0.00 - 0.20 k/cmm [facility] Blood 12/11/2023 5:50 AM CDT 12/11/2023 6:26 AM CDT Igor Glover MD LABORATORY Performing Organization Address City/[facility]/ZIP Co de Phone Number [facility] [address] [address] * (ABNORMAL) PANEL BASIC METABOLIC (BMP) (12/11/2023 5:50 AM CDT) CO2 25 22 - 30 mmol/L [facility] Glucose 178(H) 70 - 100 mg/dL [facility] BUN 9 6 - 20 mg/dL [facility] Creatinine 0.92 0.70 - 1.25 mg/dL [facility] Calcium 9.0 8.6 - 10.0 mg/dL [facility] Sodium 136 135 - 148 mmol/L [facility] Potassium 4.1 3.5 - 5.3 mmol/L [facility] Chloride 100 92 - 108 mmol/L [facility] eGFR (2020 CKD-EPI) 105 >=60 ml/min/1.7 3m2 [facility] Comment: The estimated glomerular filtration rate (eGFR) was calculated using the CKD-EPI 2020 creatinine equation, which does not include race as a factor. This equation is validated in individuals 18 years of age and older, and eGFR is normalized to a body surface area of 1.73m^2. AnGap 11 8 - 16 mmol/L [facility] Blood 12/11/2023 5:50 AM CDT 12/11/2023 6:25 AM CDT Igor Glover MD LABORATORY Performing Organization Address City/[facility]/ZIP Co de Phone Number [facility] [address] [address] * (ABNORMAL) POC GLUCOSE (12/10/2023 9:03 PM CDT) POC Glucose 206(H) 70 - 100 mg/dL [facility] POINT OF CARE Blood 12/10/2023 9:03 PM CDT Eusebio Vivar MD LABORATORY Performing Organization Address [facility] de Phone Number [facility] POINT OF CARE [address] [place] [address], [place] * (ABNORMAL) POC GLUCOSE (12/10/2023 4:16 PM CDT) POC Glucose 341(H) 70 - 100 mg/dL [facility] POINT OF CARE Blood 12/10/2023 4:16 PM CDT Eusebio Vivar MD LABORATORY Performing Organization Address [facility] de Phone Number [facility] POINT OF [facility] [address] [place] [address], [place] * XR CHEST 2 VIEWS PA [...] Glucose 194(H) 70 - 100 mg/dL [facility] - POINT OF CARE Blood 12/10/2023 12:0 9 PM CDT Eusebio Vivar MD LABORATORY [facility] - POINT OF CARE [address] [place] [address], * SURGICAL PATHOLOGY (12/10/2023 11:07 AM CDT) SURG PATH FINAL ?Surgical Pathology Report Collection Date: ?12/10/2023 11:07 CDT ? Ordering Physician: ? SUZY PATINO Received Date: ?12/10/2023 12:07 CDT ? Accession Number: ? [id number] ? Surgical Pathology Final Report Specimen Type: [...] Regalado M.D. Attending Pathologist. DDB/DDB 12.10.2023 13:39 [facility] AP Specimen FOOT STRUCTURE / Unknown 12/10/2023 11:07 AM CDT Comment:OR: Routine gross an d microscopic examination Tissue: 1st metatarsel left foot, cut margin Site: foot Additional clinical information: Suzy Patino DPM LAB PATHOLOGY [facility] [address] [place] [address] * (ABNORMAL) POC GLUCOSE (12/10/2023 6:16 AM CDT) POC Glucose 228(H) 70 - 100 mg/dL [facility] POINT OF CARE Blood 12/10/2023 6:16 AM CDT Eusebio Vivar MD LABORATORY [facility] POINT OF CARE [address] [place] [address], * (ABNORMAL) CBC WITH PLTS/AUTO DIFF (12/10/2023 5:06 AM CDT) Pathologist [facility] WBC 8.35 4.00 - 10.00 k/cmm [facility] RBC 3.81(L) 4.60 - 6.00 m/cmm [facility] Hgb 10.3(L) 13.1 - 17.5 g/dL [facility] Hematocrit 32.5(L) 40.0 - 51.0 % [facility] MCV 85.3 80.0 - 100.0 fL [facility] MCH 27.0 25.0 - 32.0 pg [facility] MCHC 31.7 31.0 - 36.0 g/dL [facility] RDW 13.4 11.5 - 14.5 % [facility] Plt 377 150 - 400 k/cmm [facility] MPV 9.4 6.5 - 12.5 fL [facility] Automated Abs Neutrophil 4.14 1.70 - 6.50 k/cmm [facility] Comment:Preliminary ANC, Fin al Result to Follow Abs Immature Granulocyte 0.08 0.00 - 0.09 k/cmm [facility] Comment:The Immature Granulo cyte Absolute count contains metamyelocytes and myelocytes. Abs Neutrophil 4.14 1.70 - 6.50 k/cmm [facility] Abs Lymphocyte 2.39 0.80 - 4.00 k/cmm [facility] Abs Monocyte 1.06(H) 0.20 - 1.00 k/cmm [facility] Abs Eosinophil 0.64(H) 0.00 - 0.60 k/cmm [facility] Abs Basophil 0.04 0.00 - 0.20 k/cmm [facility] Blood 12/10/2023 5:06 AM CDT 12/10/2023 5:40 AM CDT Igor Glover MD LABORATORY Performing Organization Address [facility] Co de Phone Number [facility] [address] [address] * (ABNORMAL) PANEL BASIC METABOLIC (BMP) (12/10/2023 5:06 AM CDT) CO2 26 22 - 30 mmol/L [facility] Glucose 204(H) 70 - 100 mg/dL [facility] BUN 11 6 - 20 mg/dL [facility] Creatinine 0.92 0.70 - 1.25 mg/dL [facility] Calcium 9.0 8.6 - 10.0 mg/dL [facility] Sodium 137 135 - 148 mmol/L [facility] Potassium 4.2 3.5 - 5.3 mmol/L [facility] Chloride 101 92 - 108 mmol/L [facility] eGFR (2020 CKD-EPI) 105 >=60 ml/min/1.7 3m2 [facility] Comment: The estimated glomerular filtration rate (eGFR) was calculated using the CKD-EPI 2020 creatinine equation, which does not include race as a factor. This equation is validated in individuals 18 years of age and older, and eGFR is normalized to a body surface area of 1.73m^2. AnGap 10 8 - 16 mmol/L [facility] Blood 12/10/2023 5:06 AM CDT 12/10/2023 5:40 AM CDT Igor Glover MD LABORATORY Performing Organization Address [facility] Co de Phone Number [facility] [address] [address] * (ABNORMAL) POC GLUCOSE (12/09/2023 9:18 PM CDT) POC Glucose 204(H) 70 - 100 mg/dL [facility] - POINT OF CARE Blood 12/09/2023 9:18 PM CDT Eusebio Vivar MD LABORATORY Performing Organization Address [facility] Co de Phone Number [facility] POINT OF CARE [address] [place] [address], * (ABNORMAL) PANEL BASIC METABOLIC (BMP) (12/09/2023 5:56 PM CDT) Sodium 134(L) 135 - 148 mmol/L [facility] Potassium 4.2 3.5 - 5.3 mmol/L [facility] Chloride 99 92 - 108 mmol/L [facility] CO2 23 22 - 30 mmol/L [facility] AnGap 12 8 - 16 mmol/L [facility] Glucose 246(H) 70 - 100 mg/dL [facility] BUN 13 6 - 20 mg/dL [facility] Creatinine 0.98 0.70 - 1.25 mg/dL [facility] Calcium 8.8 8.6 - 10.0 mg/dL [facility] eGFR (2020 CKD-EPI) 97 >=60 ml/min/1.7 3m2 [facility] Comment: The estimated [...] Igor Glover MD LABORATORY Performing Organization Address City/[facility]/ZIP Co de Phone Number [facility] [address] [address] * VANCOMYCIN LEVEL (12/09/2023 5:56 PM CDT) Vancomycin 22.0 mcg/mL [facility] Comment:Expected Range (Trou gh): 10-20 mcg/ml Blood 12/09/2023 5:56 PM CDT 12/09/2023 6:26 PM CDT Narrative [facility] - 12/09/2023 8:14 PM CDT Peak or trough:->Trough Gwen Gamez PharmD LABORATORY Performing Organization Address [facility] Co de Phone Number [facility] [address] [place] [address] * (ABNORMAL) POC GLUCOSE (12/09/2023 4:08 PM CDT) POC Glucose 231(H) 70 - 100 mg/dL [facility] POINT OF [facility] Blood 12/09/2023 4:08 PM CDT Eusebio Vivar MD LABORATORY Performing Organization Address [facility] de Phone Number [address] [address], [place] * (ABNORMAL) POC GLUCOSE (12/09/2023 11:13 AM CDT) POC Glucose 282(H) 70 - 100 mg/dL [facility] Blood 12/09/2023 11:1 3 AM CDT Eusebio Vivar MD LABORATORY Performing Organization Address [facility] de Phone Number [address] [address], [place] * HBO TCO2 MEASUREMENT COMPLETE (12/09/2023 [...] Glucose 198(H) 70 - 100 mg/dL [facility] POINT OF CARE Blood 12/09/2023 6:43 AM CDT Eusebio Vivar MD LABORATORY Performing Organization Address [facility] Co de Phone Number [facility] POINT OF CARE [address] [place] [address], * (ABNORMAL) POC GLUCOSE (12/08/2023 9:10 PM CDT) POC Glucose 268(H) 70 - 100 mg/dL [facility] POINT OF CARE Blood 12/08/2023 9:10 PM CDT Eusebio Vivar MD LABORATORY Performing Organization Address [facility] Co de Phone Number [facility] POINT OF CARE [address] [place] [phone], * (ABNORMAL) SED RATE (ESR) (12/08/2023 4:47 PM CDT) Sed Rate 120(H) 2 - 10 mm/hr [facility] Blood 12/08/2023 4:47 PM CDT 12/08/2023 5:07 PM CDT Suzy Shafer PA-C LABORATORY Performing Organization Address [facility]/ZIP Co de Phone Number [facility] [address] [address] * (ABNORMAL) PANEL BASIC METABOLIC (BMP) (12/08/2023 4:47 PM CDT) Sodium 134(L) 135 - 148 mmol/L [facility] Potassium 4.0 3.5 - 5.3 mmol/L [facility] Chloride 98 92 - 108 mmol/L [facility] CO2 24 22 - 30 mmol/L [facility] AnGap 12 8 - 16 mmol/L [facility] Glucose 247(H) 70 - 100 mg/dL [facility] BUN 16 6 - 20 mg/dL [facility] Creatinine 0.98 0.70 - 1.25 mg/dL [facility] Calcium 8.7 8.6 - 10.0 mg/dL [facility] eGFR (2020 CKD-EPI) 97 >=60 ml/min/1.7 3m2 [facility] Comment: The estimated [...] Suzy Shafer PA-C LABORATORY Performing Organization Address [facility]/ZIP Co de Phone Number [facility] [address] [address] * (ABNORMAL) GLYCOSYLATED HGB - A1C (12/08/2023 4:47 PM CDT) Hemoglobin A1C 8.5(H) 4.0 - 5.6 % [facility] Comment: Increased risk [...] Estimated Average Glucose 197(H) 68 - 114 [facility] Comment: The estimated Average Glucose (eAG) was calculated using an equation derived from a study of 507 adults with type 1, type 2, or no diabetes. Minority populations were underrepresented and children were not included. The eAG is not equivalent to a fasting glucose concentration. Blood 12/08/2023 4:47 PM CDT 12/08/2023 5:07 PM CDT Narrative [facility] - 12/08/2023 6:01 PM CDT If not done in the last 30 days. Suzy Shafer PA-C LABORATORY [facility] [address] [address] * (ABNORMAL) CBC WITH PLATELET (12/08/2023 4:47 PM CDT) WBC 10.39(H) 4.00 - 10.00 k/cmm [facility] RBC 3.59(L) 4.60 - 6.00 m/cmm [facility] Hgb 9.8(L) 13.1 - 17.5 g/dL [facility] Hematocrit 30.8(L) 40.0 - 51.0 % [facility] MCV 85.8 80.0 - 100.0 fL [facility] MCH 27.3 25.0 - 32.0 pg [facility] MCHC 31.8 31.0 - 36.0 g/dL [facility] RDW 13.5 11.5 - 14.5 % [facility] Plt 314 150 - 400 k/cmm [facility] MPV 9.3 6.5 - 12.5 fL [facility] Blood 12/08/2023 4:47 PM CDT 12/08/2023 5:07 PM CDT Suzy Shafer PA-C LABORATORY Performing Organization Address City/[facility]/ZIP Co de Phone Number [address] [address] * (ABNORMAL) C-REACTIVE PROTEIN (12/08/2023 4:47 PM CDT) C-Reactive Protein 77(H) <=4 mg/L [facility] Blood 12/08/2023 4:47 PM CDT 12/08/2023 5:07 PM CDT Suzy Shafer PA-C LABORATORY Performing Organization Address [facility] Co de Phone Number [place] [phone] * (ABNORMAL) POC GLUCOSE (12/08/2023 4:20 PM CDT) POC Glucose 204(H) 70 - 100 mg/dL [facility] POINT OF CARE Blood 12/08/2023 4:20 PM CDT Eusebio Vivar MD LABORATORY Performing Organization Address City/[facility] Co de Phone Number [facility] POINT OF [place] [phone], [place] * (ABNORMAL) POC GLUCOSE (12/08/2023 12:35 PM CDT) POC Glucose 227(H) 70 - 100 mg/dL [facility] POINT OF CARE Blood 12/08/2023 12:3 5 PM CDT Eusebio Vivar MD LABORATORY Performing Organization Address City/[facility]/ZIP Co de Phone Number [facility] POINT OF CARE [address] [place] [address], [place] * (ABNORMAL) POC GLUCOSE (12/08/2023 10:02 AM CDT) POC Glucose 263(H) 70 - 100 mg/dL [facility] POINT OF CARE Blood 12/08/2023 10:0 2 AM CDT Eusebio Vivar MD LABORATORY [facility] POINT OF CARE [address] [place] [address], * XR FOOT LEFT 3 V AP/OBL/LAT* [...] Glucose 214(H) 70 - 100 mg/dL [facility] POINT OF CARE Blood 12/08/2023 8:32 AM CDT Eusebio Vivar MD LABORATORY [facility] POINT OF CARE [address] [place] [address], * SURGICAL PATHOLOGY (12/08/2023 7:56 AM CDT) SURG PATH FINAL ?Surgical Pathology Report Collection Date: ?12/08/2023 07:56 CDT ?Ordering Physician: ? CHE PALOMO Received Date: ?12/08/2023 08:41 CDT ?Accession Number: ? [id number] ? Surgical Pathology Final Report Specimen Type: [...] specimen reveals a yellow, trabeculated cut surface. Finisher Screwdown sections are submitted following decalcification as follows: A1: Resection margin, en face A2: Full cross-section of metatarsal head (DDB) DDB/DDB 12.08.2023 9:52 Microscopic Description: Microscopic examination performed and findings are reflected in the final diagnosis. I personally examined the relevant preparations and rendered and confirmed the diagnosis. ? Signed - Tootie Mackenzie M.D. Attending Pathologist. DDB/DDB 12.08.2023 9:52 [facility] AP Specimen FOOT STRUCTURE / Unknown 12/08/2023 7:56 AM CDT Comment:OR: Routine gross an d microscopic examination Tissue: Left first metatarsal head Site: left foot Additional clinical information: evaluate cut side for osteomyelitis Che Palomo [facility] PATHOLOGY Performing Organization Address [facility] de Phone Number [address] [address] * FUNGUS CULTURE:INCLUDES SUHAS (12/08/2023 7:51 AM CDT) Final Report No fungus isolated. [facility] SUHAS Prep No fungal elements seen. [facility] Bone STRUCTURE OF LEFT FOOT / Unknown 12/08/2023 7:51 AM CDT 12/08/2023 9:00 AM CDT Comment:2. Bone first metata rsal left foot Che Palomo [facility] MICROBIOLOGY Performing Organization Address [facility] Co de Phone Number [address] [address] * ANAEROBE CULTURE (12/08/2023 7:51 AM CDT) Final Report No anaerobes isolated. [facility] Bone STRUCTURE OF LEFT FOOT / Unknown 12/08/2023 7:51 AM CDT 12/08/2023 9:00 AM CDT Comment:2. Bone first metata rsal left foot Che L Beth [facility] MICROBIOLOGY Performing Organization Address [facility] Co de Phone Number [facility] [address] [address] * (ABNORMAL) TISSUE CULTURE:INCLUDES GRAM STAIN (12/08/2023 7:51 AM CDT) Final Report Positive Culture Few METHICILLIN RESISTANT Staphylococcus aureus (MRSA) isolated. 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 For susceptibility, see previous report on culture from wound culture collected 12/07/23. (POS) [facility] Organism METHICILLIN RESISTANT STAPHYLOCOCCUS AUREUS (MRSA)(POS) [facility] Gram Stain Report Corrected Report Positive Gram stain Rare PMN's seen. Rare gram positive cocci. Gram stain electronically reported to and acknowledged by: Dr. Healy Marker from OR at ??12/08/2023 10:09:09 by Jacklyn Easley MLS. Removed Pleomorphic gram variable bacilli from report. Results electronically reported to and acknowledged by: Dr. Igor Glover [facility] 12/09/2023 12:48:27. Elizabeth Schwartz MLS. (POS) [facility] Bone STRUCTURE OF LEFT FOOT / Unknown 12/08/2023 7:51 AM CDT 12/08/2023 9:00 AM CDT Comment:2. Bone first metata rsal left foot Che Palomo DP LAB MICROBIOLOGY Performing Organization Address [facility] Co de Phone Number [facility] [address] [address] * (ABNORMAL) TISSUE CULTURE:INCLUDES GRAM STAIN (12/08/2023 7:51 AM CDT) Final Report Positive Culture Few METHICILLIN RESISTANT Staphylococcus aureus (MRSA) isolated. 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 For susceptibility, see previous report on culture from wound culture collected 12/07/23. Rare Corynebacterium striatum group isolated. A member of the diphtheroid bacilli. (POS) [facility] Organism METHICILLIN RESISTANT STAPHYLOCOCCUS AUREUS (MRSA)(POS) [facility] Organism CORYNEBACTERIUM STRIATUM GROUP(POS) [facility] Gram Stain Report Positive Gram stain Rare PMN's seen. Rare gram positive cocci. Gram stain electronically reported to and acknowledged by: Dr. Healy Marker from OR at ??12/08/2023 10:09:09 by Jacklyn Easley MLS. (POS) [facility] Tissue FOOT STRUCTURE / Unknown 12/08/2023 7:51 AM CDT Comment:Add Aerobic Narrative [facility] - 12/10/2023 2:22 PM CDT Add Aerobic Che Mullent DPM LAB MICROBIOLOGY Performing Organization Address [facility] de Phone Number [address] [address] * FUNGUS CULTURE:INCLUDES SUHAS (12/08/2023 7:51 AM CDT) Final Report No fungus isolated. [facility] [place] [facility] SUHAS Prep No fungal elements seen. [facility] [place] [facility] Tissue FOOT STRUCTURE / Unknown 12/08/2023 7:51 AM CDT Comment:Add Aerobic Narrative [facility] [place] [facility] - 01/05/2024 8:10 AM CDT Add Aerobic Chekatelin Mullent DPM LAB MICROBIOLOGY Performing Organization Address [facility] de Phone Number [facility] [address] [address] * ANAEROBE CULTURE (12/08/2023 7:51 AM CDT) Final Report No anaerobes isolated. [facility] Tissue FOOT STRUCTURE / Unknown 12/08/2023 7:51 AM CDT Comment:Add Aerobic Narrative [facility] - 12/14/2023 9:06 AM CDT Add Aerobic Che L Beth DPM LAB MICROBIOLOGY Performing Organization Address [facility]/State/ZIP Co de Phone Number [facility] [address] [address] * (ABNORMAL) POC GLUCOSE (12/08/2023 7:22 AM CDT) [facility] POC Glucose 236(H) 70 - 100 mg/dL [facility] POINT OF CARE Blood 12/08/2023 7:22 AM CDT Eusebio Vivar MD LABORATORY Performing Organization Address City/[facility]/ZIP Co de Phone Number [facility] POINT OF CARE [address] [place] [phone], * EXTRA TUBE - BLUE (12/07/2023 4:05 PM CDT) Pathologist [facility] BLUE TUBE [facility] Comment:Blue top(Sodium citr ate) tubes are kept for 3 days from the collection date. Blood 12/07/2023 4:05 PM CDT 12/07/2023 4:24 PM CDT Eusebio Vivar MD LABORATORY Performing Organization Address [facility] Co de Phone Number [facility] [address] [address] * EXTRA TUBE - DARK GREEN (12/07/2023 4:05 PM CDT) [facility] DARK GREEN TUBE Stored [facility] Comment:Dark Green tubes (Li thium Heparin) are stored in the lab for 1 day from the collection date. Blood 12/07/2023 4:05 PM CDT 12/07/2023 4:24 PM CDT Eusebio Vivar MD LABORATORY Performing Organization Address [facility] Co de Phone Number [facility] [address] [address] * (ABNORMAL) ED CHEMISTRY LABS(NA,K,CL,CO2,GLU,CREAT,CA-IONIZED,ANION GAP) (12/07/2023 4:05 PM CDT) [facility] Sodium 139 135 - 148 mmol/L [facility] Chloride 97 92 - 108 mmol/L [facility] AnGap 15 8 - 16 mmol/L [facility] Glucose 284(H) 70 - 100 mg/dL [facility] ICA, Actual 4.89 4.40 - 5.20 mg/dL [facility] ICA, pH Corrected 4.74 4.40 - 5.20 mg/dL [facility] Creatinine 1.26(H) 0.70 - 1.25 mg/dL [facility] BICARB 26 22 - 26 mEq/L [facility] eGFR (2020 CKD-EPI) 72 >=60 ml/min/1.7 3m2 [facility] Comment: The estimated glomerular filtration rate (eGFR) was calculated using the CKD-EPI 2020 creatinine equation, which does not include race as a factor. This equation is validated in individuals 18 years of age and older, and eGFR is normalized to a body surface area of 1.73m^2. Potassium 4.5 3.5 - 5.3 mmol/L [facility] Blood 12/07/2023 4:05 PM CDT 12/07/2023 4:27 PM CDT Eusebio Vivar MD LABORATORY [facility] [address] [place] [phone] * (ABNORMAL) CBC WITH PLTS/AUTO DIFF (12/07/2023 4:05 PM CDT) WBC 9.80 4.00 - 10.00 k/cmm [facility] RBC 4.08(L) 4.60 - 6.00 m/cmm [facility] Hgb 11.2(L) 13.1 - 17.5 g/dL [facility] Hematocrit 34.7(L) 40.0 - 51.0 % [facility] MCV 85.0 80.0 - 100.0 fL [facility] MCH 27.5 25.0 - 32.0 pg [facility] MCHC 32.3 31.0 - 36.0 g/dL [facility] RDW 13.7 11.5 - 14.5 % [facility] Plt 324 150 - 400 k/cmm [facility] MPV 9.4 6.5 - 12.5 fL [facility] Automated Abs Neutrophil 5.37 1.70 - 6.50 k/cmm [facility] Comment:Preliminary ANC, Fin al Result to Follow Abs Immature Granulocyte 0.12(H) 0.00 - 0.09 k/cmm [facility] Comment:The Immature Granulo cyte Absolute count contains metamyelocytes and myelocytes. Abs Neutrophil 5.37 1.70 - 6.50 k/cmm [facility] Abs Lymphocyte 2.61 0.80 - 4.00 k/cmm [facility] Abs Monocyte 1.32(H) 0.20 - 1.00 k/cmm [facility] Abs Eosinophil 0.34 0.00 - 0.60 k/cmm [facility] Abs Basophil 0.04 0.00 - 0.20 k/cmm [facility] Blood 12/07/2023 4:05 PM CDT 12/07/2023 4:51 PM CDT Eusebio Vivar MD LABORATORY Performing Organization Address City/[facility] Co de Phone Number [address] [address] * LACTATE (LACTIC ACID) (12/07/2023 4:05 PM CDT) Pathologist [facility] Lactate 2.1 0.7 - 2.1 mmol/L [facility] Blood 12/07/2023 4:05 PM CDT 12/07/2023 4:27 PM CDT Narrative [facility] - 12/07/2023 4:27 PM CDT Send specimen on ice! Eusebio Vivar MD LABORATORY [address] [address] * (ABNORMAL) C-REACTIVE PROTEIN (12/07/2023 4:05 PM CDT) C-Reactive Protein 82(H) <=4 mg/L [facility] Blood 12/07/2023 4:05 PM CDT 12/07/2023 4:51 PM CDT Eusebio Vivar MD LABORATORY Performing Organization Address [facility] Co de Phone Number [facility] [address] [address] * (ABNORMAL) SED RATE (ESR) (12/07/2023 4:05 PM CDT) Sed Rate 120(H) 2 - 10 mm/hr [facility] Blood 12/07/2023 4:05 PM CDT 12/07/2023 4:51 PM CDT Eusebio Vivar MD LABORATORY Performing Organization Address [facility] Co de Phone Number [address] [address] * BLOOD AEROBIC/ANAEROBIC CULTURE (12/07/2023 4:05 PM CDT) Final Report No growth after 5 days. [facility] Blood (Peripheral) 12/07/2023 4:05 PM CDT 12/07/2023 7:55 PM CDT Eusebio Vivar MD LAB MICROBIOLOGY Performing Organization Address [facility] de Phone Number [address] [address] documented in this encounter Visit Diagnoses Diagnosis [...] Until Discontinued 1233 (Given - Provider: Sravani Rosdao RN)1545 (Given - Provider: Sravani Rosado, RN)2107 [...] (Due: Patch removed - Provider: JENNIFER NARAYANAN, [facility] - Comment: Time automatically adjusted from [...]
--- OUTSIDE RECORDS SUMMARY | 2024-02-21 09:04 | XMS_ITS | Encounter Summary ---
Author Organization [facility] Address [address] [place] [address] Phone Care Team Providers Care Business Planning Manager Name Role Phone Unavailable Primary Care Provider Unavailabl e Reason for Visit * Auth/Cert (Routine) Specialty Diagnoses / Procedures Referred By Katherine tidwell Referred To Contact SURGERY Diagnoses Other acute osteomyelitis of left foot ([facility]) Eusebio Vivar MD [address] [place] [phone] Or P4 [address] [place] [phone] Referral ID Status Reason Start Date Expiration Date Visits Re quested Visits Authorized [id number] 1 1 Encounter Details Date Type Department Care Team (Late st Contact Info) Description 12/10/2023 10:39 AM CDT Anesthesia Event OR P4 [address] [place] [address] [phone] Clint White MD [address] [place] [address] [phone] Carly Jordan MD [address] [place] [address] [phone] Anesthesia Record Procedure Summary Procedure Name Responsible [...] [facility] type: General () Patient location: [...] GI - negative ROS Hematologic/Onc (+) anemia /Renal/General Administrator - negative ROS Airway Mallampati: II TM distance: >3 FB Neck ROM: full Mouth Opening: good Dental - normal exam OB Other Physical Exam Anesthesia Plan ASA 2 MAC Post-op Care: routine analgesia Anesthetic plan and risks discussed with patient. Plan discussed with SUPERVISOR OVENS. Vitals: 12/10/23 0700 BP: 145/69 Pulse: 72 [...]
--- OUTSIDE RECORDS SUMMARY | 2024-02-21 09:05 | XMS_ITS | Encounter Summary ---
Author Organization [facility] Address [address] [place] [address] Phone Care Team Providers Care Legal Practice Manager Name Role Phone Unavailable Primary Care Provider Unavailabl e Reason for Visit * Auth/Cert (Routine) Specialty Diagnoses / Procedures Referred By Katherine tidwell Referred To Contact SURGERY Diagnoses Other acute osteomyelitis of left foot ([facility]) Eusebio Vivar MD [address] [place] [address] Or P4 [address] [place] [address] Referral ID Status Reason Start Date Expiration Date Visits Re quested Visits Authorized [id number] 1 1 Encounter Details Date Type Department Care Team (Late st Contact Info) Description 12/10/2023 9:49 AM CDT - 12/10/2023 11:34 AM CDT Surgery OR P4 [address] [place] [address] Suzy Patino DPM [address] [id number] REVISION, AMPUTATION SITE, POSSIBLE PARTIAL FOOT AMPUTATION, [...] on discharge due to cost/transport issues at [place]. HOSPITAL COURSE BY PROBLEM: Acute osteomyelitis of [...] 12/12 - discussed with PharmD. HTN: Continue SECURITY SITE SUPERVISOR amlodipine. Hyperlipidemia: Continue SECURITY SITE SUPERVISOR rosuvastatin. Tobacco use disorder: Continue NRT. Hx of TBI. Malnutrition Weight: (!) 139.9 kg (308 lb 6.8 oz) Wt Change from Previous: 0 Kg Wt Change from Admit: 0 Kg % Wt Change from Adm: 0 % [place] Body Wt (IBW) Male (kg): 75.3 kg [...] Comments: Fax to Dr. Aretha Damon at [phone] PANEL HEPATIC FUNCTION Standing Status: Future Standing Exp. Date: 03/13/24 Order Comments: Fax to Dr. Aretha Damon at [phone] Scheduling Instructions: Hepatic Function Panel includes: Albumin, Alk Phos, ALT, AST, Direct Bilirubin, Total Bilirubin and Total Protein C-REACTIVE PROTEIN Standing Status: Future Standing Exp. Date: 03/13/24 Order Comments: Fax to Dr. Aretha Damon at [phone] CREATININE, SERUM Standing Status: Future Standing Exp. Date: 03/13/24 Order Comments: Fax to Dr. Aretha Damon at [phone] Referral to Physical Therapy Referral Priority: Routine [...] of plan of care? Yes Okay for Sn[facility] Facility standing orders? Order Specific Question Answer Comments OK for Snf Facility house standing orders? Yes Give Mantoux unless current or contraindicated. Scheduling Instructions: Please specify in comments! Resume previous standing orders per detention policy Order Comments: Resume previous standing orders per detention policy Scheduling Instructions: Please specify in comments! [...] equipment/supplies recommended: None Final discharge destination: Subacute detention with rehab care R: The patient and [...] hesitate to call the Hyperbaric Department at [phone] during clinic hours or page documentation specialist staff with any updates, questions, or [...] recent) Eusebio Perez PharmD 12/13/2023 21:07 Pager: ([facility]) * Emily Hannah RN - 12/13/2023 1:07 PM CDTSummary: Discharge planning Clinical Coordinator Update Patient is medically ready for discharge back to [facility]- since 12/11. Spoke to Tabatha at [facility] today ([phone]) who reported that the patient was not [...] () of patient departure: 12/13/2023 @1530 Destination: [address] [place] [address] Type of ride: wheelchair Transportation vendor of ride: [facility] [phone] * If this ride needs to be [...] Clinical Coordinators will be informed via a [email or web address] page. PCS form was completed in Progress [...] infection Attending provider: Igor Glover MD Insurance: [facility] Secondary insurance: [place] [employer] Height: Height: 180.3 cm (5' [...] hesitate to call the Hyperbaric Department at [phone] during clinic hours or page documentation specialist staff with any updates, questions, or concerns. Associated attestation - Douglas Morris II, MD - 12/13/2023 2:40 PM CDT Continuous attending physician supervision was provided throughout the hyperbaric oxygen treatment.I have reviewed and agree with the treatment note created by the Hyperbaric Medicine Fellow: Talita Patel MD. Appropriate addendums were made as needed above. Douglas Morrsi II, MD, 12/13/2023 2:39 PM * Igor [...] 12/12 - discussed with PharmD. HTN: Continue SECURITY SITE SUPERVISOR amlodipine. Hyperlipidemia: Continue SECURITY SITE SUPERVISOR rosuvastatin. Tobacco use disorder: Continue NRT. Hx of TBI. FEN: Regular consistent carb diet. Code status: Full code. VTE prophylaxis: VTE prophylaxis with lovenox to start 12/10. Lines: No central line. No mujica. Discharge planning: Discharg to [facility] in [place] when they're able to accept him back.Possibly [...] Glover MD, 12/12/2023 2:02 PM Page via [employer] * Narcisa Tobar SUPERVISOR COLD ROLLING - 12/12/2023 9:50 AM CDT . Care Management Follow-up Note Patient Name: Stephanie Low Date: 12/12/2023 Patient/Family Discharge Goals: Patient's Discharge Goal: back to [facility]' Discharge Goal: n/a Discharge Destination Expected [...] Services Address Phone Fax Patient Preferred [facility] Pending - No Request Sent N/A [id number] [facility] [id number] -- Narcisa Tobar LGSW, 12/12/2023 9:50 AM * Aretha Damon MD - 12/12/2023 8:53 AM CDT ID PROGRESS NOTE Stephanie Low 1980 male [id number] ASSESSMENT: MRSA left foot osteomyelitis S/p I&D [...] 12/12 - discussed with PharmD. HTN: Continue SECURITY SITE SUPERVISOR amlodipine. Hyperlipidemia: Continue SECURITY SITE SUPERVISOR rosuvastatin. Tobacco use disorder: Continue NRT. Hx of TBI. FEN: Regular consistent carb diet. Code status: Full code. VTE prophylaxis: VTE prophylaxis with lovenox to start 12/10. Lines: No central line. No mujica. Discharge planning: Discharg to [facility] in [place] when they're able to accept him back.Possibly [...] Glover MD, 12/11/2023 7:34 PM Page via [employer] * Eusebio Perez, PharmD - 12/11/2023 3:38 [...] recent) Eusebio Perez PharmD 12/11/2023 19:22 Pager: ([facility]ie) * Lizbeth Cavazos LICSW - 12/11/2023 2:41 PM CDT Weekend Inpatient Social Work Note Summary: Weekend SW paged by bedside RN to help facilitate coordination back to TCU today. GARY called [facility] Aguiar and left a voicemail. Many barriers are at play for a weekend return - patient hasIV antibiotics, he is recommended to receive 20 HBO sessions (1st today), and has [facility] Medicare Advantage (which requires prior authorization). GARY advised this likely cannot be resolved during the weekend due to the barriers listed above. Follow up needed: GARY will try to problem solve if [facility] Aguiar calls back, if not weekday team to follow up on plan for discharge. RAJ Cadena LICSW Inpatient Marketing Database Consultant - Casual (weekends only) Available via [employer] Lizbeth Cavazos LICSW, 12/11/2023 2:41 PM Addendum [id number]: GARY received update from attending physician sharing [...] hesitate to call the Hyperbaric Department at [phone] during clinic hours or page documentation specialist staff with any updates, questions, or [...] Schizophrenia History of TBI --Patient is own [facility] RECOMMENDATIONS: 1. Dressing: [...] continue to follow while admitted. Please page documentation specialist resident with questions. Patient was discussed with documentation specialist staff Interval history: Patient seen and [...] 12/12 - discussed with PharmD. HTN: Continue SECURITY SITE SUPERVISOR amlodipine. Hyperlipidemia: Continue SECURITY SITE SUPERVISOR rosuvastatin. Tobacco use disorder: Continue NRT. Hx of TBI. FEN: Regular consistent carb diet. Code status: Full code. VTE prophylaxis: VTE prophylaxis with lovenox to start 12/10. Lines: No central line. No mujica. 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 Denise Esteves Inpatient Clinical Coordinator [facility] Office: [phone] * Suzy Patino DPM - 12/10/2023 8:42 [...] Schizophrenia History of TBI --Patient is own [facility] RECOMMENDATIONS: 1. Dressing: [...] continue to follow while admitted. Please page documentation specialist resident with questions. Patient was discussed with documentation specialist staff Interval history: Patient seen resting [...] CDT MEDICINE PROGRESS NOTE - STAFF Stephanie oLw : 1980 Sex: male PATIENT SUMMARY: 43 [...] 12/12 - discussed with PharmD. HTN: Continue SECURITY SITE SUPERVISOR amlodipine. Hyperlipidemia: Continue SECURITY SITE SUPERVISOR rosuvastatin. Tobacco use disorder: Continue NRT. Hx of TBI. FEN: Regular consistent carb diet. Code status: Full code. VTE prophylaxis: VTE prophylaxis with hep to start 12/08. Lines: No central line. No mujica. 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 [...] Glover MD, 12/09/2023 10:33 PM Page via [employer] * David Mancuso, PharmD - 12/09/2023 3:54 [...] 12/09/2023 Expected DC Date: 12/10/2023 Social Information Solar Energy Systems Engineer Used: None needed Decision Maker at Admission: Self Living Situation: FDC (see comment) Patient Identified Support System: sister, significant other Services Receiving: Waivered services (see comment) Complex Medical Needs: Other (see comment) (wound care) Transportation Used for Discharge: stretcher Safety Concerns: None Behavioral Health Concerns: None Patient Family Goals Patient's Discharge Goal: back to [facility] Family's Discharge Goal: n/a Plan/Interventions Expected Discharge Disposition: Snf Facility Patient Information Verification Verified demographic information, including SSN, Next of Kin, and Guardianship: Yes Verified PCP: Yes If post-acute placement is needed, have vaccination status needs been addressed?: Not applicable Risks for Readmission: None Summary of pertinent information: Patient admitted from [facility] with concern for a left great to osteomyelitis that was resected 12/07. 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 Have a call out to [facility] to confirm bed hold ([phone]). Spoke to staff at his [facility] (Minnie [phone]) to also update and confirm that he [...] Schizophrenia History of TBI --Patient is own [facility] RECOMMENDATIONS: 1. Dressing: [...] continue to follow while inpatient Please page documentation specialist resident with questions. Patient was discussed with documentation specialist staff Interval history: Patient seen and [...] Schizophrenia History of TBI --Patient is own [facility] RECOMMENDATIONS: 1. Dressing: [...] continue to follow while inpatient Please page documentation specialist resident with questions. Patient was seen with documentation specialist staff, Dr. Palomo Interval history: Patient [...] male D: Stephanie Low was admitted to [address] from PACU at 1446 for Other acute osteomyelitis of leftfoot ([facility]) . Patient: alert, oriented to person, place [...] informed of Patient Valuables and Belongings Policy (#[id number]): Policy reviewed - patient/family/designee has indicated that [...] 12/12 - discussed with PharmD. HTN: Continue SECURITY SITE SUPERVISOR amlodipine. Hyperlipidemia: Continue SECURITY SITE SUPERVISOR rosuvastatin. Tobacco use disorder: Continue NRT. Hx of TBI. FEN: Regular consistent carb diet. Code status: Full code. VTE prophylaxis: VTE prophylaxis with hep to start 12/08. Lines: No central line. No mujica. 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 [...] -F/up cultures currently in process -NPO at [place], holding VTE ppx -AM BMP, CBC, CRP, ESR Chronic / Stable / Resolved / Ruled Out #T2DM: A1c 6.8% 07/2023. Reduce SECURITY SITE SUPERVISOR lantus to 15 U while NPO, Novolog 1U/CHO + LDSSI. Rechecking A1c. #HTN: SECURITY SITE SUPERVISOR amlodipine 10 mg daily #HLD: SECURITY SITE SUPERVISOR statin #Paranoid schizophrenia: SECURITY SITE SUPERVISOR prazosin #HILL: SECURITY SITE SUPERVISOR escitalopram 20 mg daily #Tobacco use disorder: [...] including pre-visit review of separately obtained history, ixeh-bq-cggy interaction performing medically appropriate physical exam, patientcounseling/education, [...] from the original note were not included. [facility] follow up: [facility] Surgery has made recommendations. [facility] will defer to surgery and sign off. Pt was [place] [facility] [place] [place]/24 for Demar's gangrene. Discharge [...] wound healing. Message sent to primary team. [facility] Nursing follow up: Appreciate the [...] identified. WOCN available Wednesday through Wednesday on [facility] or [phone] [facility] Nursing attempts to see patients in person when possible, but will at times complete a chart/media review in order to recommend wound treatment in a timely manner. Please reconsult [facility] if wound condition changes or [...] on service at PharmD General Weekend Days ([employer]) or [phone]. If no response within needed timeframe, please contact central pharmacy via phone at [phone]. Planned discharge medications are: Medication List Medications [...] NEW CONSULT NOTE Stephanie Low 1980 male [id number] REASON FOR CONSULT: I was asked to [...] Prior to recent hospitalization pt lived at nursing home with elevator. Was independent with mobility SUBJECTIVE [...] bearing restrictions, otherwise bed to chair only SECURITY SITE SUPERVISOR Appropriate: No (more OR) Participated in goal setting and treatment planning: Patient Agrees with goals and treatment plan: Question patient's ability to understand. Gracia Arredondo, PT 12/10/2023 Pager: [facility] PT Department * David Cortes MD - 12/09/2023 9:58 AM CDT Images from the original note were not included. [facility] HYPERBARIC MEDICINE CONSULTATION Referring clinician: Che Palomo [...] old poorly controlled DMII male referred to [facility] Hyperbaric medical team for consultation regarding concern [...] Hyperbaric Medicine to become a part [facility]. Please do not hesitate to call the department at [phone] during clinic hours ([phone]) or page the documentation specialist HYPERBARIC staff with any questions or [...] you for allowing us to participate in [facility] care. [place] for Hyperbaric Medicine: [phone]. David Cortes MD * Angela Cardenas CWOCN - 12/08/2023 3:00 PM CDTAssociated Order(s): CONSULT TO WOUND NURSE Images from the original note were not included. [facility] Nursing consulted by nursing for perineal wounds. Pt was at [facility] [place]/09 to 11/24 for Demar's gangrene. Discharge [...] wound healing. Message sent to primary team. [facility] Nursing follow up: later this week after surgery sees Staff to continue to follow skin injury bundle. Escalate concerns to WOCN through additional consult or to the provider when barriers are identified. WOCN available Wednesday through Wednesday on [facility] or [phone] [facility] Nursing attempts to see patients [...] continue to follow while inpatient Please page documentation specialist resident with questions. Patient was seen with documentation specialist staff, Dr. Palomo CHIEF COMPLAINT: Left [...] OR Date: 12/10/2023 Surgeon: Suzy Patino DPM Court Liaison(s): Samina Singletary DPM PGY3 Pre-Op Diagnosis: Packed [...] 1980 Sex: male Surgeon: Che Palomo DPM Court Liaison(s): Niraj Lewis DPM PGY-3 Jf Sky, MS-4 [...] 2023 2242 Started nicotine gum PRN Started SECURITY SITE SUPERVISOR glargine and lispro The patient remained in the emergency department through the end of my shift. Their care was signedout [id number] with the oncoming provider. Dx, DDx, Assessment and Plan was discussed with Attending Emergency Medicine Physician. Final Clinical Impression 1. Other acute osteomyelitis of left foot ([facility]) Disposition and Plan Signed out to oncoming [...] in real time. Please contact me via [employer] staff message if you note any errors requiring clarification. * Farida Beyer RN - 12/07/2023 7:41 PM CDT Assumed care of pt. SNF director here as pt was reported missing when he did not return back from the clinic. Plan for admission with OR tomorrow. NPO at midnight, pt aware. * Allyssa Drummond MD - 12/07/2023 4:25 PM CDT Emergency Department Physician Note [facility] HISTORY Stephanie Low is a 43 [...] 1. Other acute osteomyelitis of left foot ([facility]) DISPOSITION & PLAN Patient remained in the [...] Toe Head to Toe Assessment Shift Summary [id number] Alert and oriented x3, unsure of the [...] Physical Therapy Inpatient Discharge Summary Stephanie Low [id number] Diagnosis Patient Active Problem List Diagnosis Fourniers [...] to Toe Assessment Shift Summary Shift Summary [id number] Pt alert oriented and able to make [...] Toe Head to Toe Assessment Shift Summary [id number] Daily dressing change done per order, reported [...] Toe Head to Toe Assessment Shift Summary [id number] Alert and oriented x 4, able to [...] Toe Head to Toe Assessment Shift Summary [id number] Patient is alert and oriented x 4,RA.Vitals [...] amputation RLE - amputation Comments: R amputation SECURITY SITE SUPERVISOR Integumentary Assessment Within Defined Limits except for: [...] Toe Head to Toe Assessment Shift Summary [id number] Patient is alert and oriented x 4,RA.Vitals [...] 12/10/2023 6:30 PM PGY-1 [facility] Pager: [phone] * Nursing Assessment - May Torres RN [...] Singletary DPM - 12/10/2023 11:06 AM CDT [facility] Immediate Post Operative Note Note written: [...] Toe Head to Toe Assessment Shift Summary [id number] Alert and oriented x3, unsure of the [...] Head to Toe Assessment Shift Summary Night [id number] PT is AO x4. Able to make [...] Dennis RN - 12/08/2023 2:28 PM CDTSummary: SECURITY STRATEGISTreal estate subagent PACU to IP Nursing Handoff Note S [...] Comments: RN: Cheryl Dennis RN Extension #: [id number] * Op Note Immediate - Niraj Lewis DPM - 12/08/2023 7:48 AM CDT [facility] Immediate Post Operative Note Note written: [...] 1. Other acute osteomyelitis of left foot ([facility]) Eusebio Vivar MD, 12/08/2023 12:16 AM * Interval Note Provider - Shayna Schreiber MD - 12/07/2023 8:53 PM CDT Handoff Communication Note for Hospital Admission Verbal handoff received from Dr. Drummond in [facility]. Patient Class: Inpatient Cardiac Monitoring: Not [...] CDT Other acute osteomyelitis of left foot ([facility]) REVISION, AMPUTATION SITE, LOWER EXTREMITY Urgent (< [...] CDT Other acute osteomyelitis of left foot ([facility]) PC CULTURE,BACTERIAL,D EFINITIVE,AEROBIC ANY SOURCE Routine 12/08/2023 7:51 AM CDT PC CULTURE,BACTERIAL,D EFINITIVE,AEROBIC ANY SOURCE Routine 12/08/2023 7:51 AM CDT Other acute osteomyelitis of left foot ([facility]) PC CULTURE FUNGI ISOLATION W-WO PRESUMPTIVE ID SKIN OTH Routine 12/08/2023 7:51 AM CDT PC CULTURE FUNGI ISOLATION W-WO PRESUMPTIVE ID SKIN OTH Routine 12/08/2023 7:51 AM CDT Other acute osteomyelitis of left foot ([facility]) PC CULTURE SPECIMEN, ANAEROBIC Routine 12/08/2023 7:51 AM CDT PC CULTURE SPECIMEN, ANAEROBIC Routine 12/08/2023 7:51 AM CDT Other acute osteomyelitis of left foot ([facility]) POC GLUCOSE Routine 12/08/2023 7:22 AM CDT [...] POC Glucose 255(H) 70 - 100 mg/dL [facility] - POINT OF CARE Blood 12/14/2023 11:2 9 AM CDT Eusebio Vivar MD LABORATORY [facility] - POINT OF CARE [address] [place] [address], * (ABNORMAL) POC GLUCOSE (12/14/2023 6:32 AM CDT) POC Glucose 186(H) 70 - 100 mg/dL [facility] POINT OF CARE Blood 12/14/2023 6:32 AM CDT Eusebio Vivar MD LABORATORY Performing Organization Address [facility] [[email or web address]] de Phone Number [facility] [address], * (ABNORMAL) POC GLUCOSE (12/13/2023 9:05 PM CDT) POC Glucose 175(H) 70 - 100 mg/dL [facility] POINT OF [facility] Blood 12/13/2023 9:05 PM CDT Eusebio Vivar MD LABORATORY Performing Organization Address [facility] [place] [address], * VANCOMYCIN LEVEL (12/13/2023 5:24 PM CDT) Vancomycin 17.0 mcg/mL [facility] Comment:Expected Range (Trou gh): 10-20 mcg/ml Blood 12/13/2023 5:24 PM CDT 12/13/2023 5:46 PM CDT Narrative [facility] - 12/13/2023 6:34 PM CDT Please ensure trough level drawn prior to next vancomycin dose. Thank you Peak or trough:->Trough Eusebio KolbD LABORATORY Performing Organization Address [facility] Co de Phone Number [facility] [address] [address] * (ABNORMAL) POC GLUCOSE (12/13/2023 4:00 PM CDT) POC Glucose 153(H) 70 - 100 mg/dL [facility] POINT OF CARE Blood 12/13/2023 4:00 PM CDT Eusebio Vivar MD LABORATORY [facility] POINT [facility] [address] [place] [address], [place] * (ABNORMAL) POC GLUCOSE (12/13/2023 11:47 AM CDT) POC Glucose 271(H) 70 - 100 mg/dL [facility] POINT OF CARE Blood 12/13/2023 11:4 7 AM CDT Esuebio Vivar MD LABORATORY Performing Organization Address [facility]/ZIP Co de Phone Number [facility] [address] [place] [address], [place] * (ABNORMAL) POC GLUCOSE (12/13/2023 6:35 AM CDT) POC Glucose 204(H) 70 - 100 mg/dL [facility] POINT OF [facility] Blood 12/13/2023 6:35 AM CDT Eusebio Vivar MD LABORATORY Performing Organization Address [facility] Co de Phone Number [facility] [address] [place] [address], [place] * (ABNORMAL) POC GLUCOSE (12/12/2023 8:54 PM CDT) POC Glucose 170(H) 70 - 100 mg/dL [facility] POINT OF CARE Blood 12/12/2023 8:54 PM CDT Eusebio Vivar MD LABORATORY Performing Organization Address City/[facility]/ZIP Co de Phone Number [facility] POINT OF [facility] [address] [place] [address], [place] * (ABNORMAL) POC GLUCOSE (12/12/2023 4:10 PM CDT) POC Glucose 252(H) 70 - 100 mg/dL [facility] POINT OF CARE Blood 12/12/2023 4:10 PM CDT Eusebio Vivar MD LABORATORY Performing Organization Address [facility] Co de Phone Number [facility] [address] [place] [address], [place] * (ABNORMAL) POC GLUCOSE (12/12/2023 11:07 AM CDT) POC Glucose 200(H) 70 - 100 mg/dL [facility] POINT OF [facility] Blood 12/12/2023 11:0 7 AM CDT Eusebio Vivar MD LABORATORY Performing Organization Address [facility] Co de Phone Number [facility] [address] [place] [address], [place] * (ABNORMAL) POC GLUCOSE (12/12/2023 6:42 AM CDT) POC Glucose 185(H) 70 - 100 mg/dL [facility] Blood 12/12/2023 6:42 AM CDT Eusebio Vivar MD LABORATORY Performing Organization Address [facility] [facility] [[email or web address]] de Phone Number [facility] [address] [place] [address], [place] * (ABNORMAL) POC GLUCOSE (12/11/2023 9:10 PM CDT) POC Glucose 226(H) 70 - 100 mg/dL [facility] Blood 12/11/2023 9:10 PM CDT Eusebio Vivar MD LABORATORY Performing Organization Address [facility] Co de Phone Number [facility] [address] [place] [address], [place] * VANCOMYCIN LEVEL (12/11/2023 5:28 PM CDT) Vancomycin 19.6 mcg/mL [facility] Comment:Expected Range (Trou gh): 10-20 mcg/ml Blood 12/11/2023 5:28 PM CDT 12/11/2023 5:37 PM CDT Narrative [facility] - 12/11/2023 6:46 PM CDT Peak or trough:->Trough Igor Glover MD LABORATORY [facility] [address] [place] [address] * (ABNORMAL) POC GLUCOSE (12/11/2023 4:13 PM CDT) POC Glucose 173(H) 70 - 100 mg/dL [facility] Blood 12/11/2023 4:13 PM CDT Eusebio Vivar MD LABORATORY Performing Organization Address City/[facility] Co de Phone Number [facility] POINT OF [place] [id number], [place] * (ABNORMAL) POC GLUCOSE (12/11/2023 11:43 AM CDT) POC Glucose 283(H) 70 - 100 mg/dL [facility] Blood 12/11/2023 11:4 3 AM CDT Eusebio Vivar MD LABORATORY Performing Organization Address City/[facility] Co de Phone Number [facility]INT OF [place] [id number], [place] * (ABNORMAL) POC GLUCOSE (12/11/2023 10:28 AM CDT) POC Glucose 198(H) 70 - 100 mg/dL [facility]ARE Blood 12/11/2023 10:2 8 AM CDT Eusebio Vivar MD LABORATORY Performing Organization Address City/[facility]/ZIP Co de Phone Number [facility] CARE [address] [place], [place] [address], [place] * (ABNORMAL) POC GLUCOSE (12/11/2023 6:41 AM CDT) POC Glucose 173(H) 70 - 100 mg/dL [facility] Blood 12/11/2023 6:41 AM CDT Eusebio Vivar MD LABORATORY [facility] [address] [place] [address], [place] * (ABNORMAL) CBC WITH PLTS/AUTO DIFF (12/11/2023 5:50 AM CDT) Pathologist [facility] WBC 8.72 4.00 - 10.00 k/cmm [facility] RBC 3.82(L) 4.60 - 6.00 m/cmm [facility] Hgb 10.6(L) 13.1 - 17.5 g/dL [facility] Hematocrit 32.4(L) 40.0 - 51.0 % [facility] MCV 84.8 80.0 - 100.0 fL [facility] MCH 27.7 25.0 - 32.0 pg [facility] MCHC 32.7 31.0 - 36.0 g/dL [facility] RDW 13.5 11.5 - 14.5 % [facility] Plt 400 150 - 400 k/cmm [facility] MPV 9.3 6.5 - 12.5 fL [facility] Automated Abs Neutrophil 4.22 1.70 - 6.50 k/cmm [facility] Comment:Preliminary ANC, Fin al Result to Follow Abs Immature Granulocyte 0.09 0.00 - 0.09 k/cmm [facility] Comment:The Immature Granulo cyte Absolute count contains metamyelocytes and myelocytes. Abs Neutrophil 4.22 1.70 - 6.50 k/cmm [facility] Abs Lymphocyte 2.59 0.80 - 4.00 k/cmm [facility] Abs Monocyte 1.00 0.20 - 1.00 k/cmm [facility] Abs Eosinophil 0.79(H) 0.00 - 0.60 k/cmm [facility] Abs Basophil 0.03 0.00 - 0.20 k/cmm [facility] Blood 12/11/2023 5:50 AM CDT 12/11/2023 6:26 AM CDT Igor Glover MD LABORATORY Performing Organization Address [facility] Co de Phone Number [facility] [address] [address] * (ABNORMAL) PANEL BASIC METABOLIC (BMP) (12/11/2023 5:50 AM CDT) CO2 25 22 - 30 mmol/L [facility] Glucose 178(H) 70 - 100 mg/dL [facility] BUN 9 6 - 20 mg/dL [facility] Creatinine 0.92 0.70 - 1.25 mg/dL [facility] Calcium 9.0 8.6 - 10.0 mg/dL [facility] Sodium 136 135 - 148 mmol/L [facility] Potassium 4.1 3.5 - 5.3 mmol/L [facility] Chloride 100 92 - 108 mmol/L [facility] eGFR (2020 CKD-EPI) 105 >=60 ml/min/1.7 3m2 [facility] Comment: The estimated glomerular filtration rate (eGFR) was calculated using the CKD-EPI 2020 creatinine equation, which does not include race as a factor. This equation is validated in individuals 18 years of age and older, and eGFR is normalized to a body surface area of 1.73m^2. AnGap 11 8 - 16 mmol/L [facility] Blood 12/11/2023 5:50 AM CDT 12/11/2023 6:25 AM CDT Igor Glover MD LABORATORY Performing Organization Address [facility] Co de Phone Number [facility] [address] [address] * (ABNORMAL) POC GLUCOSE (12/10/2023 9:03 PM CDT) POC Glucose 206(H) 70 - 100 mg/dL [facility] Blood 12/10/2023 9:03 PM CDT Eusebio Vivar MD LABORATORY [facility] [address] [place] [address], [place] * (ABNORMAL) POC GLUCOSE (12/10/2023 4:16 PM CDT) POC Glucose 341(H) 70 - 100 mg/dL [facility] Blood 12/10/2023 4:16 PM CDT Eusebio Vivar MD LABORATORY [facility] [address] [place] [address], [place] * XR CHEST 2 VIEWS PA [...] POC Glucose 194(H) 70 - 100 mg/dL [facility] Blood 12/10/2023 12:0 9 PM CDT Eusebio Vivar MD LABORATORY [facility] [address] [place] [address], * SURGICAL PATHOLOGY (12/10/2023 11:07 AM CDT) SURG PATH FINAL ?Surgical Pathology Report Collection Date: ?12/10/2023 11:07 CDT ? Ordering Physician: ? SUZY PATINO Received Date: ?12/10/2023 12:07 CDT ? Accession Number: ? [id number] ? Surgical Pathology Final Report Specimen Type: [...] Regalado M.D. Attending Pathologist. DDB/DDB 12.10.2023 13:39 [facility] AP Specimen FOOT STRUCTURE / Unknown 12/10/2023 11:07 AM CDT Comment:OR: Routine gross an d microscopic examination Tissue: 1st metatarsel left foot, cut margin Site: foot Additional clinical information: Suzy Patino DPM LAB PATHOLOGY [facility] [address] [address] * (ABNORMAL) POC GLUCOSE (12/10/2023 6:16 AM CDT) POC Glucose 228(H) 70 - 100 mg/dL [facility] Blood 12/10/2023 6:16 AM CDT Eusebio Vivar MD LABORATORY [facility] [address] [place] [address], * (ABNORMAL) CBC WITH PLTS/AUTO DIFF (12/10/2023 5:06 AM CDT) WBC 8.35 4.00 - 10.00 k/cmm [facility] RBC 3.81(L) 4.60 - 6.00 m/cmm [facility] Hgb 10.3(L) 13.1 - 17.5 g/dL [facility] Hematocrit 32.5(L) 40.0 - 51.0 % [facility] MCV 85.3 80.0 - 100.0 fL [facility] MCH 27.0 25.0 - 32.0 pg [facility] MCHC 31.7 31.0 - 36.0 g/dL [facility] RDW 13.4 11.5 - 14.5 % [facility] Plt 377 150 - 400 k/cmm [facility] MPV 9.4 6.5 - 12.5 fL [facility] Automated Abs Neutrophil 4.14 1.70 - 6.50 k/cmm [facility] Comment:Preliminary ANC, Fin al Result to Follow Abs Immature Granulocyte 0.08 0.00 - 0.09 k/cmm [facility] Comment:The Immature Granulo cyte Absolute count contains metamyelocytes and myelocytes. Abs Neutrophil 4.14 1.70 - 6.50 k/cmm [facility] Abs Lymphocyte 2.39 0.80 - 4.00 k/cmm [facility] Abs Monocyte 1.06(H) 0.20 - 1.00 k/cmm [facility] Abs Eosinophil 0.64(H) 0.00 - 0.60 k/cmm [facility] Abs Basophil 0.04 0.00 - 0.20 k/cmm [facility] Blood 12/10/2023 5:06 AM CDT 12/10/2023 5:40 AM CDT Igor Glover MD LABORATORY [facility] [address] [address] * (ABNORMAL) PANEL BASIC METABOLIC (BMP) (12/10/2023 5:06 AM CDT) CO2 26 22 - 30 mmol/L [facility] Glucose 204(H) 70 - 100 mg/dL [facility] BUN 11 6 - 20 mg/dL [facility] Creatinine 0.92 0.70 - 1.25 mg/dL [facility] Calcium 9.0 8.6 - 10.0 mg/dL [facility] Sodium 137 135 - 148 mmol/L [facility] Potassium 4.2 3.5 - 5.3 mmol/L [facility] Chloride 101 92 - 108 mmol/L [facility] eGFR (2020 CKD-EPI) 105 >=60 ml/min/1.7 3m2 [facility] Comment: The estimated glomerular filtration rate (eGFR) was calculated using the CKD-EPI 2020 creatinine equation, which does not include race as a factor. This equation is validated in individuals 18 years of age and older, and eGFR is normalized to a body surface area of 1.73m^2. AnGap 10 8 - 16 mmol/L [facility] Blood 12/10/2023 5:06 AM CDT 12/10/2023 5:40 AM CDT Igor Glover MD LABORATORY Performing Organization Address [facility] Co de Phone Number [facility] [address] [address] * (ABNORMAL) POC GLUCOSE (12/09/2023 9:18 PM CDT) POC Glucose 204(H) 70 - 100 mg/dL [facility] Blood 12/09/2023 9:18 PM CDT Eusebio Vivar MD LABORATORY Performing Organization Address [facility]/ZIP Co de Phone Number [facility] [address] [place] [address], * (ABNORMAL) PANEL BASIC METABOLIC (BMP) (12/09/2023 5:56 PM CDT) Sodium 134(L) 135 - 148 mmol/L [facility] Potassium 4.2 3.5 - 5.3 mmol/L [facility] Chloride 99 92 - 108 mmol/L [facility] CO2 23 22 - 30 mmol/L [facility] AnGap 12 8 - 16 mmol/L [facility] Glucose 246(H) 70 - 100 mg/dL [facility] BUN 13 6 - 20 mg/dL [facility] Creatinine 0.98 0.70 - 1.25 mg/dL [facility] Calcium 8.8 8.6 - 10.0 mg/dL [facility] eGFR (2020 CKD-EPI) 97 >=60 ml/min/1.7 3m2 [facility] Comment: The estimated glomerular filtration rate (eGFR) was calculated using the CKD-EPI 2020 creatinine equation, which does not include race as a factor. This equation is validated in individuals 18 years of age and older, and eGFR is normalized to a body surface area of 1.73m^2. Blood 12/09/2023 5:56 PM CDT 12/09/2023 6:26 PM CDT Igor Glover MD LABORATORY Performing Organization Address City/[facility]/ZIP Co de Phone Number [facility] [address] [address] * VANCOMYCIN LEVEL (12/09/2023 5:56 PM CDT) Pathologist [facility] Vancomycin 22.0 mcg/mL [facility] Comment:Expected Range (Trou gh): 10-20 mcg/ml Blood 12/09/2023 5:56 PM CDT 12/09/2023 6:26 PM CDT Narrative [facility] - 12/09/2023 8:14 PM CDT Peak or trough:->Trough Gwen Gamez PharmD LABORATORY [facility] [address] [address] * (ABNORMAL) POC GLUCOSE (12/09/2023 4:08 PM CDT) POC Glucose 231(H) 70 - 100 mg/dL [facility] CARE Blood 12/09/2023 4:08 PM CDT Eusebio Vivar MD LABORATORY Performing Organization Address [facility] Co de Phone Number [facility] POINT [facility] [address] [place] [address], * (ABNORMAL) POC GLUCOSE (12/09/2023 11:13 AM CDT) POC Glucose 282(H) 70 - 100 mg/dL [facility] CARE Blood 12/09/2023 11:1 3 AM CDT Eusebio Vivar MD LABORATORY Performing Organization Address [facility] [[email or web address]] de Phone Number [facility] POINT [facility] [address] [place] [address], [place] * HBO TCO2 MEASUREMENT COMPLETE (12/09/2023 [...] Reg 2002; 10:198-207. Bridget QUIÑONEZ et al. [facility] 2009, Vol. 36(1). ? [place] 07/27/13 [...] POC Glucose 198(H) 70 - 100 mg/dL [facility] Blood 12/09/2023 6:43 AM CDT Eusebio Vivar MD LABORATORY Performing Organization Address City/[facility]/ZIP Co de Phone Number [facility]INT [facility] CARE [address] [place] [address], [place] * (ABNORMAL) POC GLUCOSE (12/08/2023 9:10 PM CDT) Pathologist [facility] POC Glucose 268(H) 70 - 100 mg/dL [facility] Blood 12/08/2023 9:10 PM CDT Eusebio Vivar MD LABORATORY [facility] CARE [address] [place] [address], [place] * (ABNORMAL) SED RATE (ESR) (12/08/2023 4:47 PM CDT) Sed Rate 120(H) 2 - 10 mm/hr [facility] Blood 12/08/2023 4:47 PM CDT 12/08/2023 5:07 PM CDT Suzy Shafer PA-C LABORATORY Performing Organization Address [facility] Co de Phone Number [facility] [address] [address] * (ABNORMAL) PANEL BASIC METABOLIC (BMP) (12/08/2023 4:47 PM CDT) Sodium 134(L) 135 - 148 mmol/L [facility] Potassium 4.0 3.5 - 5.3 mmol/L [facility] Chloride 98 92 - 108 mmol/L [facility] CO2 24 22 - 30 mmol/L [facility] AnGap 12 8 - 16 mmol/L [facility] Glucose 247(H) 70 - 100 mg/dL [facility] BUN 16 6 - 20 mg/dL [facility] Creatinine 0.98 0.70 - 1.25 mg/dL [facility] Calcium 8.7 8.6 - 10.0 mg/dL [facility] eGFR (2020 CKD-EPI) 97 >=60 ml/min/1.7 3m2 [facility] Comment: The estimated glomerular filtration rate (eGFR) was calculated using the CKD-EPI 2020 creatinine equation, which does not include race as a factor. This equation is validated in individuals 18 years of age and older, and eGFR is normalized to a body surface area of 1.73m^2. Blood 12/08/2023 4:47 PM CDT 12/08/2023 5:07 PM CDT Suzy Shafer PA-C LABORATORY Performing Organization Address [facility] Co de Phone Number [facility] [address] [address] * (ABNORMAL) GLYCOSYLATED HGB - A1C (12/08/2023 4:47 PM CDT) Hemoglobin A1C 8.5(H) 4.0 - 5.6 % [facility] Comment: Increased risk for diabetes (prediabetes): 5.7-6.4% Diabetes >=6.5% In the absence of unequivocal hyperglycemia, diagnosis requires two abnormal test results (i.e. HbA1c and glucose) or two abnormal results from specimens collected at two different timepoints. The presence of some hemoglobin variants or red cell disorders may interfere with the measurement of hemoglobin A1c (HbA1c). Estimated Average Glucose 197(H) 68 - 114 [facility] Comment: The estimated Average Glucose (eAG) was calculated using an equation derived from a study of 507 adults with type 1, type 2, or no diabetes. Minority populations were underrepresented and children were not included. The eAG is not equivalent to a fasting glucose concentration. Blood 12/08/2023 4:47 PM CDT 12/08/2023 5:07 PM CDT Narrative [facility] - 12/08/2023 6:01 PM CDT If not done in the last 30 days. Suzy Shafer PA-C LABORATORY Performing Organization Address [facility] Co de Phone Number [facility] [address] [address] * (ABNORMAL) CBC WITH PLATELET (12/08/2023 4:47 PM CDT) WBC 10.39(H) 4.00 - 10.00 k/cmm [facility] RBC 3.59(L) 4.60 - 6.00 m/cmm [facility] Hgb 9.8(L) 13.1 - 17.5 g/dL [facility] Hematocrit 30.8(L) 40.0 - 51.0 % [facility] MCV 85.8 80.0 - 100.0 fL [facility] MCH 27.3 25.0 - 32.0 pg [facility] MCHC 31.8 31.0 - 36.0 g/dL [facility] RDW 13.5 11.5 - 14.5 % [facility] Plt 314 150 - 400 k/cmm [facility] MPV 9.3 6.5 - 12.5 fL [facility] Blood 12/08/2023 4:47 PM CDT 12/08/2023 5:07 PM CDT Suzy Shafer PA-C LABORATORY Performing Organization Address [facility]/ZIP Co de Phone Number [facility] [address] [address] * (ABNORMAL) C-REACTIVE PROTEIN (12/08/2023 4:47 PM CDT) C-Reactive Protein 77(H) <=4 mg/L [facility] Blood 12/08/2023 4:47 PM CDT 12/08/2023 5:07 PM CDT Suzy Shafer PA-C LABORATORY [facility] [address] [place] [address] * (ABNORMAL) POC GLUCOSE (12/08/2023 4:20 PM CDT) POC Glucose 204(H) 70 - 100 mg/dL [facility] POINT OF [facility] Blood 12/08/2023 4:20 PM CDT Eusebio Vivar MD LABORATORY Performing Organization Address City/[facility]/ZIP Co de Phone Number [facility] POINT [facility] [address] [place] [address], [place] * (ABNORMAL) POC GLUCOSE (12/08/2023 12:35 PM CDT) POC Glucose 227(H) 70 - 100 mg/dL [facility] POINT [facility] Blood 12/08/2023 12:3 5 PM CDT Eusebio Vivar MD LABORATORY [facility] POINT OF [facility] [address] [place] [address], [place] * (ABNORMAL) POC GLUCOSE (12/08/2023 10:02 AM CDT) POC Glucose 263(H) 70 - 100 mg/dL [facility] POINT OF CARE Blood 12/08/2023 10:0 2 AM CDT Eusebio Vivar MD LABORATORY [facility] [address] [address], [place] * XR FOOT LEFT 3 V [...] POC Glucose 214(H) 70 - 100 mg/dL [facility] Blood 12/08/2023 8:32 AM CDT Eusebio Vivar MD LABORATORY [facility] [address] [place] [address], * SURGICAL PATHOLOGY (12/08/2023 7:56 AM CDT) SURG PATH FINAL ?Surgical Pathology Report Collection Date: ?12/08/2023 07:56 CDT ?Ordering Physician: ? CHE PALOMO Received Date: ?12/08/2023 08:41 CDT ?Accession Number: ? [id number] ? Surgical Pathology Final Report Specimen Type: [...] specimen reveals a yellow, trabeculated cut surface. [employer] sections are submitted following decalcification as follows: A1: Resection margin, en face A2: Full cross-section of metatarsal head (DDB) DDB/DDB 12.08.2023 9:52 Microscopic Description: Microscopic examination performed and findings are reflected in the final diagnosis. I personally examined the relevant preparations and rendered and confirmed the diagnosis. ? Signed - Tootie Mackenzie M.D. Attending Pathologist. DDB/DDB 12.08.2023 9:52 [facility] AP Specimen FOOT STRUCTURE / Unknown 12/08/2023 7:56 AM CDT Comment:OR: Routine gross an d microscopic examination Tissue: Left first metatarsal head Site: left foot Additional clinical information: evaluate cut side for osteomyelitis Che Palomo [facility] LAB PATHOLOGY Performing Organization Address [facility] [[email or web address]] de Phone Number [address] [address] * FUNGUS CULTURE:INCLUDES SUHAS (12/08/2023 7:51 AM CDT) Final Report No fungus isolated. [facility] SUHAS Prep No fungal elements seen. [facility] Bone STRUCTURE OF LEFT FOOT / Unknown 12/08/2023 7:51 AM CDT 12/08/2023 9:00 AM CDT Comment:2. Bone first metata rsal left foot Chekatelin Mullent DP LAB MICROBIOLOGY Performing Organization Address [facility] Co de Phone Number [address] [address] * ANAEROBE CULTURE (12/08/2023 7:51 AM CDT) Final Report No anaerobes isolated. [facility] Bone STRUCTURE OF LEFT FOOT / Unknown 12/08/2023 7:51 AM CDT 12/08/2023 9:00 AM CDT Comment:2. Bone first metata rsal left foot Chekatelin Mullent DP LAB MICROBIOLOGY Performing Organization Address [facility] Co de Phone Number [address] [address] * (ABNORMAL) TISSUE CULTURE:INCLUDES GRAM STAIN (12/08/2023 7:51 AM CDT) Final Report Positive Culture Few METHICILLIN RESISTANT Staphylococcus aureus (MRSA) isolated. 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 For susceptibility, see previous report on culture from wound culture collected 12/07/23. (POS) [facility] Organism METHICILLIN RESISTANT STAPHYLOCOCCUS AUREUS (MRSA)(POS) [facility] Gram Stain Report Corrected Report Positive Gram stain Rare PMN's seen. Rare gram positive cocci. Gram stain electronically reported to and acknowledged by: Dr. Niraj Lewis from OR at ??12/08/2023 10:09:09 by Jacklyn Easley MLS. Removed Pleomorphic gram variable bacilli from report. Results electronically reported to and acknowledged by: [facility] [place] 12/09/2023 12:48:27. Elizabeth Schwartz MLS. (POS) [facility] Bone STRUCTURE OF LEFT FOOT / Unknown 12/08/2023 7:51 AM CDT 12/08/2023 9:00 AM CDT Comment:2. Bone first metata rsal left foot [facility] MICROBIOLOGY [facility] [address] [id number] * (ABNORMAL) TISSUE CULTURE:INCLUDES GRAM STAIN (12/08/2023 7:51 AM CDT) Final Report Positive Culture Few METHICILLIN RESISTANT Staphylococcus aureus (MRSA) isolated. 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 For susceptibility, see previous report on culture from wound culture collected 12/07/23. Rare Corynebacterium striatum group isolated. A member of the diphtheroid bacilli. (POS) [facility]ism METHICILLIN RESISTANT STAPHYLOCOCCUS AUREUS (MRSA)([facility]) [facility] Organism CORYNEBACTERIUM STRIATUM GROUP(POS) [facility] Gram Stain Report Positive Gram stain Rare PMN's seen. Rare gram positive cocci. Gram stain electronically reported to and acknowledged by: Dr. Niraj Lewis from OR at ??12/08/2023 10:09:09 by Jacklyn [place] MLS. (POS) [facility] Tissue FOOT STRUCTURE / Unknown 12/08/2023 7:51 AM CDT Comment:Add Aerobic Narrative [facility] - 12/10/2023 2:22 PM CDT Add Aerobic Che L Beth DPM LAB MICROBIOLOGY Performing Organization Address [facility] Co de Phone Number [facility] [address] [address] * FUNGUS CULTURE:INCLUDES SUHAS (12/08/2023 7:51 AM CDT) Final Report No fungus isolated. [facility] SUHAS Prep No fungal elements seen. [facility] Tissue FOOT STRUCTURE / Unknown 12/08/2023 7:51 AM CDT Comment:Add Aerobic Narrative [facility] - 01/05/2024 8:10 AM CDT Add Aerobic Che L Beth DPM LAB MICROBIOLOGY Performing Organization Address [facility] Co de Phone Number [facility] [address] [address] * ANAEROBE CULTURE (12/08/2023 7:51 AM CDT) Final Report No anaerobes isolated. [facility] Tissue FOOT STRUCTURE / Unknown 12/08/2023 7:51 AM CDT Comment:Add Aerobic Narrative [facility] - 12/14/2023 9:06 AM CDT Add Aerobic Che L Beth DPM LAB MICROBIOLOGY Performing Organization Address [facility] Co de Phone Number [facility] [address] [address] * (ABNORMAL) POC GLUCOSE (12/08/2023 7:22 AM CDT) POC Glucose 236(H) 70 - 100 mg/dL [facility] - POINT OF CARE Blood 12/08/2023 7:22 AM CDT Eusebio Vivar MD LABORATORY Performing Organization Address [facility]/ZIP Co de Phone Number [facility] [place] - POINT OF CARE [address] [place] [address], * EXTRA TUBE - BLUE (12/07/2023 4:05 PM CDT) BLUE TUBE [facility] Comment:Blue top(Sodium citr ate) tubes are kept for 3 days from the collection date. Blood 12/07/2023 4:05 PM CDT 12/07/2023 4:24 PM CDT Eusebio Vivar MD LABORATORY Performing Organization Address [facility] Co de Phone Number [facility] [place] [address] * EXTRA TUBE - DARK GREEN (12/07/2023 4:05 PM CDT) DARK GREEN TUBE Stored [facility] Comment:Dark Green tubes (Li thium Heparin) are stored in the lab for 1 day from the collection date. Blood 12/07/2023 4:05 PM CDT 12/07/2023 4:24 PM CDT Eusebio Vivar MD LABORATORY Performing Organization Address [facility] Co de Phone Number [facility] [address] [address] * (ABNORMAL) ED CHEMISTRY LABS(NA,K,CL,CO2,GLU,CREAT,CA-IONIZED,ANION GAP) (12/07/2023 4:05 PM CDT) Sodium 139 135 - 148 mmol/L [facility] Chloride 97 92 - 108 mmol/L [facility] AnGap 15 8 - 16 mmol/L [facility] Glucose 284(H) 70 - 100 mg/dL [facility] ICA, Actual 4.89 4.40 - 5.20 mg/dL [facility] ICA, pH Corrected 4.74 4.40 - 5.20 mg/dL [facility] Creatinine 1.26(H) 0.70 - 1.25 mg/dL [facility] BICARB 26 22 - 26 mEq/L [facility] eGFR (2020 CKD-EPI) 72 >=60 ml/min/1.7 3m2 [facility] Comment: The estimated glomerular filtration rate (eGFR) was calculated using the CKD-EPI 2020 creatinine equation, which does not include race as a factor. This equation is validated in individuals 18 years of age and older, and eGFR is normalized to a body surface area of 1.73m^2. Potassium 4.5 3.5 - 5.3 mmol/L [facility] Blood 12/07/2023 4:05 PM CDT 12/07/2023 4:27 PM CDT Eusebio Vivar MD LABORATORY [facility] [address] [address] * (ABNORMAL) CBC WITH PLTS/AUTO DIFF (12/07/2023 4:05 PM CDT) WBC 9.80 4.00 - 10.00 k/cmm [facility] RBC 4.08(L) 4.60 - 6.00 m/cmm [facility] Hgb 11.2(L) 13.1 - 17.5 g/dL [facility] Hematocrit 34.7(L) 40.0 - 51.0 % [facility] MCV 85.0 80.0 - 100.0 fL [facility] MCH 27.5 25.0 - 32.0 pg [facility] MCHC 32.3 31.0 - 36.0 g/dL [facility] RDW 13.7 11.5 - 14.5 % [facility] Plt 324 150 - 400 k/cmm [facility] MPV 9.4 6.5 - 12.5 fL [facility] Automated Abs Neutrophil 5.37 1.70 - 6.50 k/cmm [facility] Comment:Preliminary ANC, Fin al Result to Follow Abs Immature Granulocyte 0.12(H) 0.00 - 0.09 k/cmm [facility] Comment:The Immature Granulo cyte Absolute count contains metamyelocytes and myelocytes. Abs Neutrophil 5.37 1.70 - 6.50 k/cmm [facility] Abs Lymphocyte 2.61 0.80 - 4.00 k/cmm [facility] Abs Monocyte 1.32(H) 0.20 - 1.00 k/cmm [facility] Abs Eosinophil 0.34 0.00 - 0.60 k/cmm [facility] Abs Basophil 0.04 0.00 - 0.20 k/cmm [facility] Blood 12/07/2023 4:05 PM CDT 12/07/2023 4:51 PM CDT Eusebio Vivar MD LABORATORY Performing Organization Address [facility]/ZIP Co de Phone Number [facility] [address] [address] * LACTATE (LACTIC ACID) (12/07/2023 4:05 PM CDT) Pathologist [facility] Lactate 2.1 0.7 - 2.1 mmol/L [facility] Blood 12/07/2023 4:05 PM CDT 12/07/2023 4:27 PM CDT Narrative [facility] - 12/07/2023 4:27 PM CDT Send specimen on ice! Eusebio Vivar MD LABORATORY Performing Organization Address [facility] Co de Phone Number [address] [address] * (ABNORMAL) C-REACTIVE PROTEIN (12/07/2023 4:05 PM CDT) C-Reactive Protein 82(H) <=4 mg/L [facility] Blood 12/07/2023 4:05 PM CDT 12/07/2023 4:51 PM CDT Eusebio Vivar MD LABORATORY Performing Organization Address [facility] Co de Phone Number [facility] [address] [address] * (ABNORMAL) SED RATE (ESR) (12/07/2023 4:05 PM CDT) Sed Rate 120(H) 2 - 10 mm/hr [facility] Blood 12/07/2023 4:05 PM CDT 12/07/2023 4:51 PM CDT Euseboi Vivar MD LABORATORY Performing Organization Address [facility] Co de Phone Number [facility] [address] [address] * BLOOD AEROBIC/ANAEROBIC CULTURE (12/07/2023 4:05 PM CDT) Final Report No growth after 5 days. [facility] Blood (Peripheral) 12/07/2023 4:05 PM CDT 12/07/2023 7:55 PM CDT Eusebio Vivar MD LAB MICROBIOLOGY Performing Organization Address [facility] [[email or web address]] de Phone Number [facility] [address] [address] documented in this encounter Visit Diagnoses Diagnosis [...] Dawood Sargent RN)[id number] (Given - Provider: Dawood Sragent RN) loratadine (CLARITIN) tablet 10 mg 10 [...] (Due: Patch removed - Provider: JENNIFER NARAYANAN, [place] - Comment: Time automatically adjusted from order [...]
--- OUTSIDE RECORDS SUMMARY | 2024-02-21 09:05 | XMS_ITS | Encounter Summary ---
Author Organization [facility] Address [address] [place] [address] Phone Care Team Providers Care Mailing Manager Name Role Phone Unavailable Primary Care Provider Unavailabl e Reason for Visit * Auth/Cert (Routine) Specialty Diagnoses / Procedures Referred By Katherine tidwell Referred To Contact SURGERY Diagnoses Other acute osteomyelitis of left foot ([facility]) Eusebio Vivar MD [address] [place] [address] Or P4 [address] [place] [address] Referral ID Status Reason Start Date Expiration Date Visits Re quested Visits Authorized [id number] 1 1 Encounter Details Date Type Department Care Team ([facility] st Contact Info) Description 12/08/2023 7:35 AM CDT - 12/08/2023 9:13 AM CDT Surgery OR P4 [address] [place] [address] Che Palomo DPM [address] [address] PARTIAL AMPUTATION FOOT Social History [...] on discharge due to cost/transport issues at [facility]. HOSPITAL COURSE BY PROBLEM: Acute osteomyelitis of [...] wound and tissue cultures - NWB to [facility] - F/U podiatry clinic in a [...] 12/12 - discussed with PharmD. HTN: Continue MANAGER PRODUCT MANAGEMENT amlodipine. Hyperlipidemia: Continue MANAGER PRODUCT MANAGEMENT rosuvastatin. Tobacco use disorder: Continue NRT. Hx of TBI. Malnutrition Weight: (!) 139.9 kg (308 lb 6.8 oz) Wt Change from Previous: 0 Kg Wt Change from Admit: 0 Kg % Wt Change from Adm: 0 % [place] Body Wt (IBW) Male (kg): 75.3 kg [...] Comments: Fax to Dr. Aretha Damon at [phone] PANEL HEPATIC FUNCTION Standing Status: Future Standing Exp. Date: 03/13/24 Order Comments: Fax to Dr. Aretha Damon at [phone] Scheduling Instructions: Hepatic Function Panel includes: Albumin, Alk Phos, ALT, AST, Direct Bilirubin, Total Bilirubin and Total Protein C-REACTIVE PROTEIN Standing Status: Future Standing Exp. Date: 03/13/24 Order Comments: Fax to Dr. Aretha Damon at [phone] CREATININE, SERUM Standing Status: Future Standing Exp. Date: 03/13/24 Order Comments: Fax to Dr. Aretha Damon at [phone] Referral to Physical Therapy Referral Priority: Routine [...] of plan of care? Yes Okay for Longterm Facility standing orders? Order Specific Question Answer Comments OK for Longterm Facility house standing orders? Yes Give Mantoux unless current or contraindicated. Scheduling Instructions: Please specify in comments! Resume previous standing orders per skilled nursing policy Order Comments: Resume previous standing orders per skilled nursing policy Scheduling Instructions: Please specify in comments! [...] equipment/supplies recommended: None Final discharge destination: Subacute skilled nursing with rehab care R: The patient and [...] hesitate to call the Hyperbaric Department at [phone] during clinic hours or page screwhead stoner and polisher staff with any updates, questions, or concerns. [...] recent) Eusebio Perez, PharmJaneen 12/13/2023 21:07 Pager: (TelTCM Bertha) * Emily Hannah RN - 12/13/2023 1:07 PM CDTSummary: Discharge planning Clinical Coordinator Update Patient is medically ready for discharge back to [facility]- since 12/11. Spoke to Tabatha at [facility] today ([phone]) who reported that the patient was not [...] () of patient departure: 12/13/2023 @1530 Destination: [address] [place] [address] Type of ride: wheelchair Transportation vendor of ride: [facility] [phone] * If this ride needs to be [...] Clinical Coordinators will be informed via a TelTCM Bertha page. PCS form was completed in Progress [...] infection Attending provider: Igor Glover MD Insurance: [facility] Secondary insurance: [place] [employer] Height: Height: [...] hesitate to call the Hyperbaric Department at [phone] during clinic hours or page screwhead stoner and polisher staff with any updates, questions, or concerns. [...] 12/12 - discussed with PharmD. HTN: Continue MANAGER PRODUCT MANAGEMENT amlodipine. Hyperlipidemia: Continue MANAGER PRODUCT MANAGEMENT rosuvastatin. Tobacco use disorder: Continue NRT. Hx of TBI. FEN: Regular consistent carb diet. Code status: Full code. VTE prophylaxis: VTE prophylaxis with lovenox to start 12/10. Lines: No central line. No mujica. Discharge planning: Discharg to [facility] in [place] when they're able to accept him back.Possibly [...] Glover MD, 12/12/2023 2:02 PM Page via [employer] * Narcisa Tobar CUSTOM FRAMING SPECIALIST - 12/12/2023 9:50 AM CDT . Care Management Follow-up Note Patient Name: Stephanie Low Date: 12/12/2023 Patient/Family Discharge Goals: Patient's Discharge Goal: back to [facility] Family's Discharge Goal: n/a Discharge [...] Selected Services Address Phone Fax Patient Preferred [facility] Pending - No Request Sent N/A [id number] [id number] -- Narcisa Tobar LGSW, 12/12/2023 9:50 AM * Aretha Damon MD - 12/12/2023 8:53 AM CDT ID PROGRESS NOTE Stephanie Low 1980 male [id number] ASSESSMENT: MRSA left foot osteomyelitis S/p I&D [...] 12/12 - discussed with PharmD. HTN: Continue MANAGER PRODUCT MANAGEMENT amlodipine. Hyperlipidemia: Continue MANAGER PRODUCT MANAGEMENT rosuvastatin. Tobacco use disorder: Continue NRT. Hx of TBI. FEN: Regular consistent carb diet. Code status: Full code. VTE prophylaxis: VTE prophylaxis with lovenox to start 12/10. Lines: No central line. No mujica. Discharge planning: Discharg to [facility] in [place] when they're able to accept him back.Possibly [...] Glover MD, 12/11/2023 7:34 PM Page via [employer] * Eusebio Perez, PharmD - 12/11/2023 [...] recent) Eusebio Perez, Jaxon 12/11/2023 19:22 Pager: (TelGemvaraq) * Lizbeth Cavazos LICSW - 12/11/2023 2:41 PM CDT Weekend Inpatient Social Work Note Summary: Weekend SW paged by bedside RN to help facilitate coordination back to TCU today. SW called Cruz Aguiar and left a voicemail. Many barriers are at play for a weekend return - patient hasIV antibiotics, he is recommended to receive 20 HBO sessions (1st today), and has [facility] Medicare Advantage (which requires prior authorization). GARY advised this likely cannot be resolved during the weekend due to the barriers listed above. Follow up needed: GARY will try to problem solve if Cruz Aguiar calls back, if not weekday team to follow up on plan for discharge. RAJ Cadena LICSW Inpatient Patient Portal Concierge - Casual (weekends only) Available via [employer] Lizbeth Cavazos LICSW, 12/11/2023 2:41 PM Addendum [...] hesitate to call the Hyperbaric Department at [phone] during clinic hours or page screwhead stoner and polisher staff with any updates, questions, or concerns. [...] continue to follow while admitted. Please page screwhead stoner and polisher resident with questions. Patient was discussed with screwhead stoner and polisher staff Interval history: Patient seen and evaluated [...] 12/12 - discussed with PharmD. HTN: Continue MANAGER PRODUCT MANAGEMENT amlodipine. Hyperlipidemia: Continue MANAGER PRODUCT MANAGEMENT rosuvastatin. Tobacco use disorder: Continue NRT. Hx of TBI. FEN: Regular consistent carb diet. Code status: Full code. VTE prophylaxis: VTE prophylaxis with lovenox to start 12/10. Lines: No central line. No mujica. 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 Denise Esteves Inpatient Clinical Coordinator [facility] Office: [phone] * Suzy Patino DPM - 12/10/2023 8:42 [...] Schizophrenia History of TBI --Patient is own [facility] RECOMMENDATIONS: 1. Dressing: Dressed in [...] continue to follow while admitted. Please page screwhead stoner and polisher resident with questions. Patient was discussed with screwhead stoner and polisher staff Interval history: Patient seen resting comfortably [...] 12/12 - discussed with PharmD. HTN: Continue MANAGER PRODUCT MANAGEMENT amlodipine. Hyperlipidemia: Continue MANAGER PRODUCT MANAGEMENT rosuvastatin. Tobacco use disorder: Continue NRT. Hx of TBI. FEN: Regular consistent carb diet. Code status: Full code. VTE prophylaxis: VTE prophylaxis with hep to start 12/08. Lines: No central line. No mujica. 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 [...] 12/09/2023 Expected DC Date: 12/10/2023 Social Information Outsole Flexer Used: None needed Decision Maker at Admission: Self Living Situation: shelter (see comment) Patient Identified Support System: sister, significant other Services Receiving: Waivered services (see comment) Complex Medical Needs: Other (see comment) (wound care) Transportation Used for Discharge: stretcher Safety Concerns: None Behavioral Health Concerns: None Patient Family Goals Patient's Discharge Goal: back to [facility] Family' Discharge Goal: n/a Plan/Interventions Expected Discharge Disposition: Longterm Facility Patient Information Verification Verified demographic information, including SSN, Next of Kin, and Guardianship: Yes Verified PCP: Yes If post-acute placement is needed, have vaccination status needs been addressed?: Not applicable Risks for Readmission: None Summary of pertinent information: Patient admitted from [facility] with concern for a left great to osteomyelitis that was resected 12/07. 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 Have a call out to [facility] to confirm bed hold ([phone]). Spoke to staff at his [facility] (Minnie [phone]) to also update and confirm that he can return there when ultimately. Patient currently has started on HBO, this may be problematic with returning to [facility]. Emily Hannah RN, 12/09/2023 1:49 [...] Schizophrenia History of TBI --Patient is own [facility] RECOMMENDATIONS: 1. Dressing: Dressed with [...] continue to follow while inpatient Please page screwhead stoner and polisher resident with questions. Patient was discussed with screwhead stoner and polisher staff Interval history: Patient seen and evaluated [...] Schizophrenia History of TBI --Patient is own [facility] RECOMMENDATIONS: 1. Dressing: Dressed in [...] continue to follow while inpatient Please page screwhead stoner and polisher resident with questions. Patient was seen with screwhead stoner and polisher staff, Dr. Palomo Interval history: Patient is [...] male D: Stephanie Low was admitted to [address] from PACU at 1446 for Other acute osteomyelitis of leftfoot ([facility]) . Patient: alert, oriented to [...] informed of Patient Valuables and Belongings Policy (#[id number]): Policy reviewed - patient/family/designee has indicated that [...] 12/12 - discussed with PharmD. HTN: Continue MANAGER PRODUCT MANAGEMENT amlodipine. Hyperlipidemia: Continue MANAGER PRODUCT MANAGEMENT rosuvastatin. Tobacco use disorder: Continue NRT. Hx of TBI. FEN: Regular consistent carb diet. Code status: Full code. VTE prophylaxis: VTE prophylaxis with hep to start 12/08. Lines: No central line. No mujica. 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 [...] Shafer PA-C, 12/08/2023 8:34 AM Page via [employer] documented in this encounter H&P Notes * [...] -F/up cultures currently in process -NPO at [place], holding VTE ppx -AM BMP, CBC, CRP, ESR Chronic / Stable / Resolved / Ruled Out #T2DM: A1c 6.8% 07/2023. Reduce MANAGER PRODUCT MANAGEMENT lantus to 15 U while NPO, Novolog 1U/CHO + LDSSI. Rechecking A1c. #HTN: MANAGER PRODUCT MANAGEMENT amlodipine 10 mg daily #HLD: MANAGER PRODUCT MANAGEMENT statin #Paranoid schizophrenia: MANAGER PRODUCT MANAGEMENT prazosin #HILL: MANAGER PRODUCT MANAGEMENT escitalopram 20 mg daily #Tobacco use disorder: [...] including pre-visit review of separately obtained history, [id number] interaction performing medically appropriate physical exam, patientcounseling/education, [...] surgery and sign off. Pt was at [facility] 11/09 to 11/24 for [...] wound healing. Message sent to primary team. [facility] Nursing follow up: Appreciate the [...] identified. WOCN available Wednesday through Wednesday on [employer] or [phone] [facility] Nursing attempts to see patients in person when possible, but will at times complete a chart/media review in order to recommend wound treatment in a timely manner. Please reconsult [facility] if wound condition changes or the current [...] at PharmD General Weekend Days (TelmedIQ) or [phone]. If no response within needed timeframe, please contact central pharmacy via phone at [phone]. Planned discharge medications are: Medication List Medications [...] NEW CONSULT NOTE Stephanie Low 1980 male [id number] REASON FOR CONSULT: I was asked to [...] Prior to recent hospitalization pt lived at half-way with elevator. Was independent with mobility SUBJECTIVE [...] bearing restrictions, otherwise bed to chair only MANAGER PRODUCT MANAGEMENT Appropriate: No (more OR) Participated in goal setting and treatment planning: Patient Agrees with goals and treatment plan: Question patient's ability to understand. Gracia Arredondo, PT 12/10/2023 Pager: [employer] PT Department * David Cortes MD - 12/09/2023 9:58 AM CDT Images from the original note were not included. [facility] HYPERBARIC MEDICINE CONSULTATION Referring [...] old poorly controlled DMII male referred to [facility] Hyperbaric medical team for [...] Hyperbaric Medicine [facility]. Please do not hesitate to call the department at [phone] during clinic hours ([phone]) or page the screwhead stoner and polisher HYPERBARIC staff with any questions or concerns. [...] you for allowing us to participate in [facility]. [facility]: [phone]. David Cortes MD * Angela Cardenas, OCN - 12/08/2023 3:00 PM CDTAssociated Order(s): CONSULT TO WOUND NURSE Images from the original note were not included. [facility] Nursing consulted by nursing for perineal wounds. Pt was at [facility] 11/09 to 11/24 for [...] wound healing. Message sent to primary team. [facility] Nursing follow up: later this week after surgery sees Staff to continue to follow skin injury bundle. Escalate concerns to WOCN through additional consult or to the provider when barriers are identified. WOCN available Wednesday through Wednesday on [employer] or [phone] [facility] Nursing attempts to see patients [...] Schizophrenia History of TBI --Patient is own [facility] RECOMMENDATIONS: 1. Dressing: Daily dressing [...] continue to follow while inpatient Please page screwhead stoner and polisher resident with questions. Patient was seen with screwhead stoner and polisher staff, Dr. Palomo CHIEF COMPLAINT: Left foot [...] OR Date: 12/10/2023 Surgeon: Suzy Patino DPM Ward Maid(s): Samina Singletary DPM PGY3 Pre-Op Diagnosis: Packed [...] 1980 Sex: male Surgeon: Che Palomo DPM Ward Maid(s): Niraj Lewis DPM PGY-3 Jf Sky, MS-4 [...] 2023 2242 Started nicotine gum PRN Started MANAGER PRODUCT MANAGEMENT glargine and lispro The patient remained in the emergency department through the end of my shift. Their care was signedout [id number] with the oncoming provider. Dx, DDx, Assessment and Plan was discussed with Attending Emergency Medicine Physician. Final Clinical Impression 1. Other acute osteomyelitis of left foot ([facility]) Disposition and Plan Signed out [...] in real time. Please contact me via [employer] staff message if you note any errors requiring clarification. * Farida Beyer, SABINE - 12/07/2023 7:41 PM CDT Assumed care of pt. SNF director here as pt was reported missing when he did not return back from the clinic. Plan for admission with OR tomorrow. NPO at midnight, pt aware. * Allyssa Drummond MD - 12/07/2023 4:25 PM CDT Emergency Department Physician Note [facility] HISTORY Stephanie Low is a [...] 1. Other acute osteomyelitis of left foot ([facility]) DISPOSITION & PLAN Patient remained [...] Toe Head to Toe Assessment Shift Summary [id number] Alert and oriented x3, unsure of the [...] Physical Therapy Inpatient Discharge Summary Stephanie Low [id number] Diagnosis Patient Active Problem List Diagnosis Fourniers [...] Therapist: Gracia Arredondo, PT Date: 12/14/2023 Pager: [employer] PT Department * Nursing Assessment - Kate Sarmiento RN - 12/14/2023 6:45 AM CDT Nursing Assessment Head to Toe Head to Toe Assessment Shift Summary Shift Summary [id number] Pt alert oriented and able to make [...] Toe Head to Toe Assessment Shift Summary [id number] Daily dressing change done per order, reported [...] Toe Head to Toe Assessment Shift Summary [id number] Alert and oriented x 4, able to [...] Toe Head to Toe Assessment Shift Summary [id number] Patient is alert and oriented x 4,RA.Vitals [...] amputation RLE - amputation Comments: R amputation MANAGER PRODUCT MANAGEMENT Integumentary Assessment Within Defined Limits except for: [...] Toe Head to Toe Assessment Shift Summary [id number] Patient is alert and oriented x 4,RA.Vitals [...] 12/10/2023 6:30 PM PGY-1 Green Surgery Pager: [phone] * Nursing Assessment - May Torres, RN [...] Singletary DPM - 12/10/2023 11:06 AM CDT [facility] Immediate Post Operative Note Note [...] Toe Head to Toe Assessment Shift Summary [id number] Alert and oriented x3, unsure of the [...] Head to Toe Assessment Shift Summary Night [id number] PT is AO x4. Able to make [...] Dennis RN - 12/08/2023 2:28 PM CDTSummary: PRINTED CIRCUIT LAYOUT TAPERsecurity technician PACU to IP Nursing Handoff Note S [...] Comments: RN: Cheryl Dennis RN Extension #: [id number] * Op Note Immediate - Niraj Lewis DPM - 12/08/2023 7:48 AM CDT [facility] Immediate Post Operative Note Note [...] 1. Other acute osteomyelitis of left foot ([facility]) Eusebio Vivar MD, 12/08/2023 12:16 AM * Interval Note Provider - Shayna Schreiber MD - 12/07/2023 8:53 PM CDT Handoff Communication Note for Hospital Admission Verbal handoff received from Dr. Drummond in [facility]. Patient Class: Inpatient Cardiac Monitoring: [...] designation above. Please page the MOD via TelGem[employer] with clinical updates or status changes. Note [...] CDT Other acute osteomyelitis of left foot ([facility]) POC GLUCOSE Routine 12/10/2023 6:16 [...] CDT Other acute osteomyelitis of left foot ([facility]) TC LAB BLOOD DRAW BY [...] POC Glucose 255(H) 70 - 100 mg/dL [facility] - POINT OF CARE Blood 12/14/2023 11:2 9 AM CDT Eusebio Vivar MD LABORATORY [facility] - POINT OF CARE [address] [place] [address], * (ABNORMAL) POC GLUCOSE (12/14/2023 6:32 AM CDT) POC Glucose 186(H) 70 - 100 mg/dL [facility] - POINT OF CARE Blood 12/14/2023 6:32 AM CDT Eusebio Vivar MD LABORATORY Performing Organization Address [facility] Co de Phone Number [facility] - POINT OF CARE [address] [place] [address], * (ABNORMAL) POC GLUCOSE (12/13/2023 9:05 PM CDT) POC Glucose 175(H) 70 - 100 mg/dL [facility] POINT OF CARE Blood 12/13/2023 9:05 PM CDT Eusebio Vivar MD LABORATORY Performing Organization Address [facility] Co de Phone Number [facility] POINT OF [address] [address], * VANCOMYCIN LEVEL (12/13/2023 5:24 PM CDT) Vancomycin 17.0 mcg/mL [facility] Comment:Expected Range (Trou gh): 10-20 mcg/ml Blood 12/13/2023 5:24 PM CDT 12/13/2023 5:46 PM CDT Narrative [facility] - 12/13/2023 6:34 PM CDT Please ensure trough level drawn prior to next vancomycin dose. Thank you Peak or trough:->Trough Eusebio KolbD LABORATORY Performing Organization Address [facility] Co de Phone Number [facility] [address] [address] * (ABNORMAL) POC GLUCOSE (12/13/2023 4:00 PM CDT) POC Glucose 153(H) 70 - 100 mg/dL [facility] POINT OF CARE Blood 12/13/2023 4:00 PM CDT Eusebio Vivar MD LABORATORY Performing Organization Address City/[facility] Co de Phone Number [facility] POINT OF [address] [address], * (ABNORMAL) POC GLUCOSE (12/13/2023 11:47 AM CDT) POC Glucose 271(H) 70 - 100 mg/dL [facility] POINT OF CARE Blood 12/13/2023 11:4 7 AM CDT Eusebio Vivar MD LABORATORY Performing Organization Address City/[facility] Co de Phone Number [facility] POINT OF CARE [address] [phone], [place] * (ABNORMAL) POC GLUCOSE (12/13/2023 6:35 AM CDT) POC Glucose 204(H) 70 - 100 mg/dL [facility] POINT OF CARE Blood 12/13/2023 6:35 AM CDT Eusebio Vivar MD LABORATORY Performing Organization Address [facility] Co de Phone Number [facility] [address] [place] [address], [place] * (ABNORMAL) POC GLUCOSE (12/12/2023 8:54 PM CDT) POC Glucose 170(H) 70 - 100 mg/dL [facility] Blood 12/12/2023 8:54 PM CDT Eusebio Vivar MD LABORATORY Performing Organization Address City/[facility] Co de Phone Number [facility] POINT [facility] [address] [place] [address], [place] * (ABNORMAL) POC GLUCOSE (12/12/2023 4:10 PM CDT) POC Glucose 252(H) 70 - 100 mg/dL [facility] POINT OF CARE Blood 12/12/2023 4:10 PM CDT Eusebio Vivar MD LABORATORY Performing Organization Address City/[facility] Co de Phone Number [facility] POINT OF CARE [address] [place] [address], [place] * (ABNORMAL) POC GLUCOSE (12/12/2023 11:07 AM CDT) POC Glucose 200(H) 70 - 100 mg/dL [facility] Blood 12/12/2023 11:0 7 AM CDT Eusebio Vivar MD LABORATORY Performing Organization Address [facility] de Phone Number [facility] [address] [place], [place] [address], * (ABNORMAL) POC GLUCOSE (12/12/2023 6:42 AM CDT) POC Glucose 185(H) 70 - 100 mg/dL [facility] Blood 12/12/2023 6:42 AM CDT Eusebio Vivar MD LABORATORY Performing Organization Address [place] [facility] de Phone Number [facility] [address] [place] [address], [place] * (ABNORMAL) POC GLUCOSE (12/11/2023 9:10 PM CDT) POC Glucose 226(H) 70 - 100 mg/dL [facility] Blood 12/11/2023 9:10 PM CDT Eusebio Vivar MD LABORATORY Performing Organization Address [facility] de Phone Number [facility] [address] [place] [address], [place] * VANCOMYCIN LEVEL (12/11/2023 5:28 PM CDT) Vancomycin 19.6 mcg/mL [facility] Comment:Expected Range (Trou gh): 10-20 mcg/ml Blood 12/11/2023 5:28 PM CDT 12/11/2023 5:37 PM CDT Narrative [facility] - 12/11/2023 6:46 PM CDT Peak or trough:->Trough Igor Glover MD LABORATORY [facility] [address] [place] [address] * (ABNORMAL) POC GLUCOSE (12/11/2023 4:13 PM CDT) POC Glucose 173(H) 70 - 100 mg/dL [facility] Blood 12/11/2023 4:13 PM CDT Eusebio Vivar MD LABORATORY Performing Organization Address City/[facility]/ZIP Co de Phone Number [facility]ARE [address] [place] [address], [place] * (ABNORMAL) POC GLUCOSE (12/11/2023 11:43 AM CDT) POC Glucose 283(H) 70 - 100 mg/dL [facility] Blood 12/11/2023 11:4 3 AM CDT Eusebio Vivar MD LABORATORY Performing Organization Address [facility] Co de Phone Number [facility] OF [address] [address], [place] * (ABNORMAL) POC GLUCOSE (12/11/2023 10:28 AM CDT) POC Glucose 198(H) 70 - 100 mg/dL [facility] Blood 12/11/2023 10:2 8 AM CDT Eusebio Vivar MD LABORATORY Performing Organization Address City/[facility] Co de Phone Number [facility] [address] [place] [address], [place] * (ABNORMAL) POC GLUCOSE (12/11/2023 6:41 AM CDT) POC Glucose 173(H) 70 - 100 mg/dL [facility] Blood 12/11/2023 6:41 AM CDT Eusebio Vivar MD LABORATORY Performing Organization Address City/[facility]/ZIP Co de Phone Number [facility] [address] [place] [phone], * (ABNORMAL) CBC WITH PLTS/AUTO DIFF (12/11/2023 5:50 AM CDT) WBC 8.72 4.00 - 10.00 k/cmm [facility] [address] [address] * (ABNORMAL) PANEL BASIC METABOLIC (BMP) (12/11/2023 5:50 AM CDT) CO2 25 22 - 30 mmol/L [facility] [...] [facility] [place] [place] [address] * (ABNORMAL) POC GLUCOSE (12/10/2023 9:03 PM CDT) [facility] POC Glucose 206(H) 70 - 100 mg/dL [facility] Blood 12/10/2023 9:03 PM CDT Eusebio Vivar MD LABORATORY [facility] [address] [place] [address] * (ABNORMAL) POC GLUCOSE (12/10/2023 4:16 PM CDT) [facility] POC Glucose 341(H) 70 - 100 mg/dL [facility] Blood 12/10/2023 4:16 PM CDT Eusebio Vivar MD LABORATORY [facility] [address] [address], [place] * XR CHEST 2 VIEWS PA [...] (ABNORMAL) POC GLUCOSE (12/10/2023 12:09 PM CDT) [facility] POC Glucose 194(H) 70 - 100 mg/dL [facility] Blood 12/10/2023 12:0 9 PM CDT Eusebio Vivar MD LABORATORY [facility] [address] [place] [address], * SURGICAL PATHOLOGY (12/10/2023 11:07 AM CDT) [facility] SURG PATH FINAL ?Surgical Pathology Report Collection Date: ?12/10/2023 11:07 CDT ? Ordering Physician: ? SUZY PATINO Received Date: ?12/10/2023 12:07 CDT ? Accession Number: ? [id number] ? Surgical Pathology Final Report Specimen Type: [...] Patino DPM LAB PATHOLOGY Performing Organization Address [facility] Co de Phone Number [facility] [place] [address] * (ABNORMAL) POC GLUCOSE (12/10/2023 6:16 AM CDT) POC Glucose 228(H) 70 - 100 mg/dL [facility] Blood 12/10/2023 6:16 AM CDT Eusebio Vivar MD LABORATORY Performing Organization Address [facility] Co de Phone Number [facility] [address] [place] [address] * (ABNORMAL) CBC WITH PLTS/AUTO DIFF (12/10/2023 5:06 AM CDT) WBC 8.35 4.00 - 10.00 k/cmm [facility] RBC 3.81(L) 4.60 - 6.00 m/cmm [facility] Hgb 10.3(L) 13.1 - 17.5 g/dL [facility] Hematocrit 32.5(L) 40.0 - 51.0 % [facility] MCV 85.3 80.0 - 100.0 fL [facility] MCH 27.0 25.0 - 32.0 pg [facility] MCHC 31.7 31.0 - 36.0 g/dL [facility] RDW 13.4 11.5 - 14.5 % [facility] Plt 377 150 - 400 k/cmm [facility] MPV 9.4 6.5 - 12.5 fL [facility] Automated Abs Neutrophil 4.14 1.70 - 6.50 k/cmm [facility] Comment:Preliminary ANC, Fin al Result to Follow Abs Immature Granulocyte 0.08 0.00 - 0.09 k/cmm [facility] Comment:The Immature Granulo cyte Absolute count contains metamyelocytes and myelocytes. Abs Neutrophil 4.14 1.70 - 6.50 k/cmm [facility] Abs Lymphocyte 2.39 0.80 - 4.00 k/cmm [facility] Abs Monocyte 1.06(H) 0.20 - 1.00 k/cmm [facility] Abs Eosinophil 0.64(H) 0.00 - 0.60 k/cmm [facility] Abs Basophil 0.04 0.00 - 0.20 k/cmm [facility] Blood 12/10/2023 5:06 AM CDT 12/10/2023 5:40 AM CDT Igor Glover MD LABORATORY [facility] [address] [address] * (ABNORMAL) PANEL BASIC METABOLIC (BMP) (12/10/2023 5:06 AM CDT) CO2 26 22 - 30 mmol/L [facility] Glucose 204(H) 70 - 100 mg/dL [facility] BUN 11 6 - 20 mg/dL [facility] Creatinine 0.92 0.70 - 1.25 mg/dL [facility] Calcium 9.0 8.6 - 10.0 mg/dL [facility] Sodium 137 135 - 148 mmol/L [facility] Potassium 4.2 3.5 - 5.3 mmol/L [facility] Chloride 101 92 - 108 mmol/L [facility] [...] 1.73m^2. AnGap 10 8 - 16 mmol/L [facility] Blood 12/10/2023 5:06 AM CDT 12/10/2023 5:40 AM CDT Igor Glover MD LABORATORY [facility] [place] [address] * (ABNORMAL) POC GLUCOSE (12/09/2023 9:18 PM CDT) POC Glucose 204(H) 70 - 100 mg/dL [facility] Blood 12/09/2023 9:18 PM CDT Eusebio Vivar MD LABORATORY [facility] [address] [place] [address] * (ABNORMAL) PANEL BASIC METABOLIC (BMP) (12/09/2023 5:56 PM CDT) Sodium 134(L) 135 - 148 mmol/L [facility] Potassium 4.2 3.5 - 5.3 mmol/L [facility] Chloride 99 92 - 108 mmol/L [facility] CO2 23 22 - 30 mmol/L [facility] AnGap 12 8 - 16 mmol/L [facility] Glucose 246(H) 70 - 100 mg/dL [facility] BUN 13 6 - 20 mg/dL [facility] Creatinine 0.98 0.70 - 1.25 mg/dL [facility] Calcium 8.8 8.6 - 10.0 mg/dL [facility] eGFR (2020 CKD-EPI) 97 >=60 ml/min/1.7 3m2 [facility] Igor Glover MD LABORATORY Performing Organization Address [facility] Co de Phone Number [address] [address] * VANCOMYCIN LEVEL (12/09/2023 5:56 PM CDT) Vancomycin 22.0 mcg/mL [facility] Comment:Expected Range (Trou gh): 10-20 mcg/ml Blood 12/09/2023 5:56 PM CDT 12/09/2023 6:26 PM CDT Narrative [facility] - 12/09/2023 8:14 PM CDT Peak or trough:->Trough Gwen Gamez PharmD LABORATORY Performing Organization Address [facility] Co de Phone Number [facility] [address] [address] * (ABNORMAL) POC GLUCOSE (12/09/2023 4:08 PM CDT) POC Glucose 231(H) 70 - 100 mg/dL [facility] Blood 12/09/2023 4:08 PM CDT Eusebio Vivar MD LABORATORY Performing Organization Address [facility]/State/ZIP Co de Phone Number [facility] [address] [place] [address], [place] * (ABNORMAL) POC GLUCOSE (12/09/2023 11:13 AM CDT) POC Glucose 282(H) 70 - 100 mg/dL [facility] Blood 12/09/2023 11:1 3 AM CDT Eusebio Vivar MD LABORATORY [facility] [address] [place] [address], [place] * HBO TCO2 MEASUREMENT COMPLETE (12/09/2023 [...] Reg 2002; 10:198-207. Bridget QUIÑONEZ et al. [facility] 2009, Vol. 36(1). ? [place] 07/27/13 [...] POC Glucose 198(H) 70 - 100 mg/dL [facility] Blood 12/09/2023 6:43 AM CDT Eusebio Vivar MD LABORATORY Performing Organization Address [facility] Co de Phone Number [facility] PO[facility] OF [address] [address], [place] * (ABNORMAL) POC GLUCOSE (12/08/2023 9:10 PM CDT) POC Glucose 268(H) 70 - 100 mg/dL [facility] Blood 12/08/2023 9:10 PM CDT Eusebio Vivar MD LABORATORY Performing Organization Address [facility] Co de Phone Number [facility] PO[facility] OF [address] [address], [place] * (ABNORMAL) SED RATE (ESR) (12/08/2023 4:47 PM CDT) Sed Rate 120(H) 2 - 10 mm/hr [facility] Blood 12/08/2023 4:47 PM CDT 12/08/2023 5:07 PM CDT Suzy Shafer PA-C LABORATORY Performing Organization Address City/[facility]/ZIP Co de Phone Number [facility] [address] [address] * (ABNORMAL) PANEL BASIC METABOLIC (BMP) (12/08/2023 4:47 PM CDT) Sodium 134(L) 135 - 148 mmol/L [facility] Potassium 4.0 3.5 - 5.3 mmol/L [facility] Chloride 98 92 - 108 mmol/L [facility] CO2 24 22 - 30 mmol/L [facility] AnGap 12 8 - 16 mmol/L [facility] Glucose 247(H) 70 - 100 mg/dL [facility] BUN 16 6 - 20 mg/dL [facility] Creatinine 0.98 0.70 - 1.25 mg/dL [facility] Calcium 8.7 8.6 - 10.0 mg/dL [facility] eGFR (2020 CKD-EPI) 97 >=60 ml/min/1.7 3m2 [facility] [...] 5:07 PM CDT Suzy Shafer PA-C LABORATORY [facility] [address] [address] * (ABNORMAL) GLYCOSYLATED HGB - A1C (12/08/2023 [...] last 30 days. Suzy Shafer PA-C LABORATORY [facility] [address] [address] * (ABNORMAL) CBC WITH PLATELET (12/08/2023 4:47 PM CDT) WBC 10.39(H) 4.00 - 10.00 k/cmm SURGICAL [...] 5:07 PM CDT Suzy Shafer PA-C LABORATORY [facility] [address] [address] * (ABNORMAL) C-REACTIVE PROTEIN (12/08/2023 4:47 PM CDT) C-Reactive Protein 77(H) <=4 mg/L [facility] Blood 12/08/2023 4:47 PM CDT 12/08/2023 5:07 PM CDT Suzy Shafer PA-C LABORATORY [facility] [address] [place] [address] * (ABNORMAL) POC GLUCOSE (12/08/2023 4:20 PM CDT) POC Glucose 204(H) 70 - 100 mg/dL [facility] Blood 12/08/2023 4:20 PM CDT Eusebio Vivar MD LABORATORY Performing Organization Address City/[facility]/ZIP Co de Phone Number [facility] [address] [place] [address], [place] * (ABNORMAL) POC GLUCOSE (12/08/2023 12:35 PM CDT) POC Glucose 227(H) 70 - 100 mg/dL [facility] Blood 12/08/2023 12:3 5 PM CDT Eusebio Vivar MD LABORATORY Performing Organization Address [facility] Co de Phone Number [address] [address], [place] * (ABNORMAL) POC GLUCOSE (12/08/2023 10:02 AM CDT) POC Glucose 263(H) 70 - 100 mg/dL [facility] Blood 12/08/2023 10:0 2 AM CDT Eusebio Vivar MD LABORATORY Performing Organization Address City/[facility]/ZIP Co de Phone Number [facility] [address] [place] [address], [place] * XR FOOT LEFT 3 V [...] POC Glucose 214(H) 70 - 100 mg/dL [facility] Blood 12/08/2023 8:32 AM CDT Eusebio Vivar MD LABORATORY [facility] [address] [place] [address], * SURGICAL PATHOLOGY (12/08/2023 7:56 AM CDT) SURG PATH FINAL ?Surgical Pathology Report Collection Date: ?12/08/2023 07:56 CDT ?Ordering Physician: ? CHE PALOMO Received Date: ?12/08/2023 08:41 CDT ?Accession Number: ? [id number] ? Surgical Pathology Final Report Specimen Type: [...] specimen reveals a yellow, trabeculated cut surface. Wellness Trainer sections are submitted following decalcification as follows: A1: Resection margin, en face A2: Full cross-section of metatarsal head (DDB) DDB/DDB 12.08.2023 9:52 Microscopic Description: Microscopic examination performed and findings are reflected in the final diagnosis. I personally examined the relevant preparations and rendered and confirmed the diagnosis. ? Signed - oTotie Mackenzie M.D. Attending Pathologist. DDB/DDB 12.08.2023 9:52 [facility] AP Specimen FOOT STRUCTURE / Unknown 12/08/2023 7:56 AM CDT Comment:OR: Routine gross an d microscopic examination Tissue: Left first metatarsal head Site: left foot Additional clinical information: evaluate cut side for osteomyelitis hCe Mullent DP LAB PATHOLOGY Performing Organization Address [facility] Co de Phone Number [facility] [address] [address] * FUNGUS CULTURE:INCLUDES SUHAS (12/08/2023 7:51 AM CDT) Final Report No fungus isolated. [facility] SUHAS Prep No fungal elements seen. [facility] Bone STRUCTURE OF LEFT FOOT / Unknown 12/08/2023 7:51 AM CDT 12/08/2023 9:00 AM CDT Comment:2. Bone first metata rsal left foot Che Jonbitt DP LAB MICROBIOLOGY Performing Organization Address [facility] Co de Phone Number [facility] [address] [address] * ANAEROBE CULTURE (12/08/2023 7:51 AM CDT) Final Report No anaerobes isolated. [facility] Bone STRUCTURE OF LEFT FOOT / Unknown 12/08/2023 7:51 AM CDT 12/08/2023 9:00 AM CDT Comment:2. Bone first metata rsal left foot Che L Beth DP LAB MICROBIOLOGY Performing Organization Address [facility] de Phone Number [facility] [address] [address] * (ABNORMAL) TISSUE CULTURE:INCLUDES GRAM STAIN (12/08/2023 [...] to and acknowledged by: Dr. Igor Glover [place] [facility] [place] 12/09/2023 12:48:27. Elizabeth Schwartz MLS. (POS) [facility] Bone STRUCTURE OF LEFT FOOT / Unknown 12/08/2023 7:51 AM CDT 12/08/2023 9:00 AM CDT Comment:2. Bone first metata rsal left foot Che Palomo [facility] MICROBIOLOGY [facility] [address] [address] * (ABNORMAL) TISSUE CULTURE:INCLUDES GRAM STAIN (12/08/2023 [...] ??12/08/2023 10:09:09 by Jacklyn Easley MLS. (POS) [facility] Tissue FOOT STRUCTURE / Unknown 12/08/2023 7:51 AM CDT Comment:Add Aerobic Narrative [facility] - 12/10/2023 2:22 PM CDT Add Aerobic Che Mullent DPM LAB MICROBIOLOGY Performing Organization Address [facility] Co de Phone Number [facility] [address] [address] * FUNGUS CULTURE:INCLUDES SUHAS (12/08/2023 7:51 AM CDT) Final Report No fungus isolated. [facility] SUHAS Prep No fungal elements seen. [facility] Tissue FOOT STRUCTURE / Unknown 12/08/2023 7:51 AM CDT Comment:Add Aerobic Narrative [facility] - 01/05/2024 8:10 AM CDT Add Aerobic Che Jonbitt DPM LAB MICROBIOLOGY Performing Organization Address [facility] Co de Phone Number [facility] [address] [address] * ANAEROBE CULTURE (12/08/2023 7:51 AM CDT) Final Report No anaerobes isolated. [facility] Tissue FOOT STRUCTURE / Unknown 12/08/2023 7:51 AM CDT Comment:Add Aerobic Narrative [facility] - 12/14/2023 9:06 AM CDT Add Aerobic Che Jonbitt DPM LAB MICROBIOLOGY Performing Organization Address [facility] Co de Phone Number [facility] [address] [address] * (ABNORMAL) POC GLUCOSE (12/08/2023 7:22 AM CDT) POC Glucose 236(H) 70 - 100 mg/dL [facility] Blood 12/08/2023 7:22 AM CDT Eusebio Vivar MD LABORATORY Performing Organization Address City/[facility]/ZIP Co de Phone Number [facility] [address] [place] [address], * EXTRA TUBE - BLUE (12/07/2023 4:05 PM CDT) BLUE TUBE [facility] Comment:Blue top(Sodium citr ate) tubes are kept for 3 days from the collection date. Blood 12/07/2023 4:05 PM CDT 12/07/2023 4:24 PM CDT Eusebio Vivar MD LABORATORY Performing Organization Address [facility] Co de Phone Number [facility] [address] [address] * EXTRA TUBE - DARK GREEN (12/07/2023 4:05 PM CDT) DARK GREEN TUBE Stored [facility] Comment:Dark Green tubes (Li thium Heparin) are stored in the lab for 1 day from the collection date. Blood 12/07/2023 4:05 PM CDT 12/07/2023 4:24 PM CDT Eusebio Vivar MD LABORATORY Performing Organization Address [facility] de Phone Number [facility] [address] [address] * (ABNORMAL) ED CHEMISTRY LABS(NA,K,CL,CO2,GLU,CREAT,CA-IONIZED,ANION GAP) (12/07/2023 4:05 PM CDT) Pathologist [facility] Sodium 139 135 - 148 mmol/L SURGICAL [...] 4:27 PM CDT Eusebio Vivar MD LABORATORY [facility] [address] [address] * (ABNORMAL) CBC WITH PLTS/AUTO DIFF (12/07/2023 4:05 PM CDT) WBC 9.80 4.00 - 10.00 k/cmm [facility] RBC 4.08(L) 4.60 - 6.00 m/cmm [facility] Hgb 11.2(L) 13.1 - 17.5 g/dL [facility] Hematocrit 34.7(L) 40.0 - 51.0 % [facility] MCV 85.0 80.0 - 100.0 fL [facility] MCH 27.5 25.0 - 32.0 pg [facility] MCHC 32.3 31.0 - 36.0 g/dL [facility] RDW 13.7 11.5 - 14.5 % [facility] Plt 324 150 - 400 k/cmm [facility] MPV 9.4 6.5 - 12.5 fL [facility] Automated Abs Neutrophil 5.37 1.70 - 6.50 k/cmm [facility] Comment:Preliminary ANC, Fin al Result to Follow Abs Immature Granulocyte 0.12(H) 0.00 - 0.09 k/cmm [facility] Comment:The Immature Granulo cyte Absolute count contains metamyelocytes and myelocytes. Abs Neutrophil 5.37 1.70 - 6.50 k/cmm [facility] Abs Lymphocyte 2.61 0.80 - 4.00 k/cmm [facility] Abs Monocyte 1.32(H) 0.20 - 1.00 k/cmm [facility] Abs Eosinophil 0.34 0.00 - 0.60 k/cmm [facility] Abs Basophil 0.04 0.00 - 0.20 k/cmm [facility] Blood 12/07/2023 4:05 PM CDT 12/07/2023 4:51 PM CDT Eusebio Vivar MD LABORATORY Performing Organization Address City/[facility]/ZIP Co de Phone Number [address] [phone] * LACTATE (LACTIC ACID) (12/07/2023 4:05 PM CDT) Lactate 2.1 0.7 - 2.1 mmol/L [facility] Blood 12/07/2023 4:05 PM CDT 12/07/2023 4:27 PM CDT Narrative [facility] - 12/07/2023 4:27 PM CDT Send specimen on ice! Eusebio Vivar MD LABORATORY Performing Organization Address [facility] Co de Phone Number [address] [phone] * (ABNORMAL) C-REACTIVE PROTEIN (12/07/2023 4:05 PM CDT) C-Reactive Protein 82(H) <=4 mg/L [facility] Blood 12/07/2023 4:05 PM CDT 12/07/2023 4:51 PM CDT Eusebio Vivar MD LABORATORY Performing Organization Address [facility] Co de Phone Number [address] [phone] * (ABNORMAL) SED RATE (ESR) (12/07/2023 4:05 PM CDT) Sed Rate 120(H) 2 - 10 mm/hr [facility] Blood 12/07/2023 4:05 PM CDT 12/07/2023 4:51 PM CDT Eusebio Vivar MD LABORATORY Performing Organization Address City/[facility] Co de Phone Number [address] [address] * BLOOD AEROBIC/ANAEROBIC CULTURE (12/07/2023 4:05 PM CDT) Final Report No growth after 5 days. [facility] Blood (Peripheral) 12/07/2023 4:05 PM CDT 12/07/2023 7:55 PM CDT Eusebio Vivar MD LAB MICROBIOLOGY [facility] [address] [place] [address] documented in this encounter Visit Diagnoses Diagnosis [...] (Due: Patch removed - Provider: JENNIFER NARAYANAN, [facility] - Comment: Time automatically adjusted from [...] Matson, SABINE) 2014 (Given - Provider: Kate Samriento, SABINE) traZODone (DESYREL) tablet 50 mg 50 [...] Provider: Sravani Rosado RN)1845 (Given - Provider: Dwaood Sargent RN) normal saline flush 0.9 % [...]
--- OUTSIDE RECORDS SUMMARY | 2024-02-21 09:05 | XMS_ITS | Encounter Summary ---
Author Organization [facility] Address [address] [place] [address] Phone Care Team Providers Care District Home Economics Agent Name Role Phone Unavailable Primary Care Provider Unavailabl e Reason for Visit * Auth/Cert (Routine) Specialty Diagnoses / Procedures Referred By Katherine tidwell Referred To Contact SURGERY Diagnoses Other acute osteomyelitis of left foot ([facility]) Eusebio Vivar MD [address] [place] [phone] Or P4 [address] [place] [address] Referral ID Status Reason Start Date Expiration Date Visits Re quested Visits Authorized [id number] 1 1 Encounter Details Date Type Department Care Team (Late st Contact Info) Description 12/08/2023 7:28 AM CDT Anesthesia Event OR P4 [address] [place] [address] [phone] Dontae Higgins MD [address] [place], [place] [phone] Carly Jordan MD [address] [place], [place] [phone] Anesthesia Record Procedure Summary Procedure Name Responsible [...] [facility]est[facility] type: General () Patient location: [...] GI - negative ROS Hematologic/Onc (+) anemia /Renal/Substation Operator - negative ROS Airway Mallampati: II TM distance: >3 FB Neck ROM: full Mouth Opening: good Dental - normal exam OB Other Physical Exam Anesthesia Plan ASA 2 MAC Post-op Care: routine analgesia Anesthetic plan and risks discussed with patient. Plan discussed with COUNTY HOME DEMONSTRATOR. Vitals: 12/08/23 0618 BP: 157/81 Pulse: 61 [...]
--- OUTSIDE RECORDS SUMMARY | 2024-02-21 09:06 | XMS_ITS | Encounter Summary ---
Author Organization [facility] Address [address] [place] [address] Phone Care Team Providers Care Ropeman Name Role Phone Unavailable Primary Care Provider [...]
--- OUTSIDE RECORDS SUMMARY | 2024-02-21 09:06 | XMS_ITS | Encounter Summary ---
Author Organization [facility] Address [address] [place] [phone] Phone Care Team Providers Care Coil Connector Name Role Phone Unavailable Primary Care Provider Unavailabl e Reason for Visit * Reason Comments Post Op * Auth/Cert (Routine) Specialty Diagnoses / Procedures Referred By Katherine tidwell Referred To Contact SURGERY Diagnoses Other acute osteomyelitis of left foot ([facility]) Eusebio Vivar MD [address] [place] [address] [address] Referral ID Status Reason Start Date Expiration Date Visits Re quested Visits Authorized [id number] 1 1 Encounter Details Date Type Department Care Team ([facility] st Contact Info) Description 12/07/2023 2:30 PM CDT Office Visit [facility]ty [facility] [address] [address] Che Campos DPM [address] [address] 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 Confirmed last admission -XR was completed in clinic today. No additional XR needed in ED -This is a low risk surgery with known risk factors including osteomyelitis and nonhealing amputation site. Please page transportation engineer resident with any questions or concerns Chief [...] Routine 12/07/2023 3:00 PM CDT 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[facility]) documented in this encounter Results [...] member of the diphtheroid bacilli. (POS) [facility] Organism METHICILLIN RESISTANT STAPHYLOCOCCUS AUREUS (MRSA)(POS) [facility] Organism CORYNEBACTERIUM STRIATUM GROUP(POS) [facility] Gram Stain Report No PMN's seen. No organisms seen. [facility] Swab STRUCTURE OF LEFT FOOT / Unknown 12/07/2023 3:00 PM CDT 12/07/2023 5:23 PM CDT Narrative [facility] - 12/10/2023 10:38 [...] 1: Sensitive Che Campos DPM LAB MICROBIOLOGY [facility] [address] [address] documented in this encounter Visit Diagnoses Diagnosis 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[facility])- Primary Cellulitis of left lower extremity Cellulitis and abscess of leg, except foot 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[facility]) documented in this encounter Additional Health Concerns Infection Onset Date Last Indicated Resolved Time 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
--- OUTSIDE RECORDS SUMMARY | 2024-02-21 09:06 | XMS_ITS | Encounter Summary ---
Author Organization [facility] Address [address] [place] [address] Phone Care Team Providers Care Director Of It Operations Name Role Phone Unavailable Primary Care Provider Unavailabl e Reason for Visit * Auth/Cert (Routine) Specialty Diagnoses / Procedures Referred By Katherine tidwell Referred To Contact SURGERY Diagnoses Other acute osteomyelitis of left foot ([facility]) Eusebio Vivar MD [address] [place] [address] [address] Referral ID Status Reason Start Date Expiration Date Visits Re quested Visits Authorized [id number] 1 1 Encounter Details Date Type Department Care Team (Latest Contact Info) Description 12/07/2023 3:07 PM CDT - 12/07/2023 11:59 PM CDT Hospital Encounter [facility] XRAY [address] [address] Che Campos DPM [address] [phone] Discharge Disposition: Discharged to home or self [...] PM CDT 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[facility]) documented in this encounter Results * XR [...] this encounter Visit Diagnoses Diagnosis 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[facility]) documented in this encounter Additional Health Concerns Infection Onset Date Last Indicated Resolved Time 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
--- OUTSIDE RECORDS SUMMARY | 2024-02-21 09:06 | XMS_ITS | Encounter Summary ---
Author Organization [facility] Address [address] [place] [address] Phone Care Team Providers Care Manager Leasing Name Role Phone Unavailable Primary Care Provider Unavailabl e Reason for Visit * Reason Onset Date Comments Post-op Complications 12/02/2023 Encounter Details Date Type Department Care Team (Late st Contact Info) Description 12/02/2023 Nurse Triage [facility] Surgery Clinic [address] [address] Angi Aranda, RN [address] [place] [address] Post-op Complications Social History Tobacco Use Types [...] 12/03/2023 8:49 AM * Telephone Encounter - Anig Aranda RN - 12/02/2023 12:38 PM CDT D: Received call initially from Farida from [facility] regarding patient, stating that patient's wound on his left operative foot/toe appears to be dehissed. States the patient receives dressingchanges every day on the left foot. Was transferred to [facility] to get more information [facility] states that the patient arrived sic days [...] answer question Protocols used: Post-Op Symptoms and Lguuhisms-[id number] documented in this encounter Plan of Treatment Not on file documented as of this encounter Visit Diagnoses Not on filedocumented in this encounter Additional Health Concerns Infection Onset Date Last Indicated Resolved Time 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
--- OUTSIDE RECORDS SUMMARY | 2024-02-21 09:07 | XMS_ITS | Encounter Summary ---
Author Organization [facility] Address [address] [place] [phone] Phone Care Team Providers Care Oil And [employer] Field Technician Name Role Phone Unavailable Primary Care Provider Unavailabl e Reason for Referral * Consult/Test/Treat (Urgent) - New Request Specialty Diagnoses / Procedures Referred By Contac t Referred To Contact Physical Therapy / PHYSICAL THERAPY Diagnoses 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HHS) Hyperglycemia Foot infection 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 APRN, CNP [address] [place] [address] Referral, [place] [address] Referral ID Status Reason Start Date Expiration Date V isits Requested Visits Authorized [id number] New Request 11/24/2023 11/24/2024 1 1 * Consult/Test/Treat (Routine) - New Request Specialty Diagnoses / Procedures Referred By Contac t Referred To Contact Diagnoses 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HHS) Hyperglycemia Foot infection 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 APRN, CNP [address] [place] [address] Referral, [place] [address] Referral ID Status Reason Start Date Expiration Date V isits Requested Visits Authorized [id number] New Request 11/24/2023 11/24/2024 1 1 Reason for Visit * Reason Comments Fever Penis/Scrotal Problem Toe Problem * Auth/Cert (Routine) Specialty Diagnoses / Procedures Referred By Contac t Referred To Contact SURGERY Diagnoses 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HHS) Hyperglycemia Zac Churchill MD [address] [place] [address] [address] [facility] R4.[address] [place] [address] Referral ID Status Reason Start Date Expiration Date Visits Re quested Visits Authorized [id number] 1 1 Encounter Details Date Type Department Care Team (Latest Contact Info) Description 11/10/2023 2:28 PM CDT - 11/25/2023 12:02 PM CDT Hospital Encounter [facility] Surgery/Trauma/Chinedu ro 2 701 [facility] [address]4.[address] [place], [place] [id number] Jessica Grullon MD [address] [facility] [address] [place], [place] [address] Zac Churchill MD [address] [facility] [address] [place], [place] [address] 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HHS) Discharge Disposition: Discharged/transd to [...] encounter Discharge Summaries * 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 APRN, GLUE SIZE MACHINE OPERATOR - 11/25/2023 7:37 AM CDT GENERAL SURGERY DISCHARGE SUMMARY - SAP CONSULTANT Stephanie Low : 1980 Sex: male Date [...] will follow up with 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 APRN, GLUE SIZE MACHINE OPERATOR Malnutrition Weight: (!) 142.9 kg (315 lb 1.6 oz) Wt Change from Previous: 0 Kg Wt Change from Admit: 2.43 Kg % Wt Change from Adm: 1.73 % [place] Body Wt (IBW) Male (kg): 75.26 kg [...] oriented x 3. No gross focal deficits Mimeographer Needed: no PLANNED DISCHARGE ORDERS: Suture/[place]: None Wound Care Plan: Location: Perineal; Dressing: [...] or contraindicated. Resume previous standing orders per prison policy Order Notes Resume previous standing orders per prison policy Patient is on a Consistent Carbohydrate [...] 4:30PM, M-F): Call the Surgery Clinic at [phone] After hours or on Holidays: Call the [facility] multiple resaw operator . Ask the multiple resaw operator to page the general surgery resident architecture consultant. IF: -- you feel you are [...] -- Read all labels for prescription and Jyip-zmx-azqjejp medicines. Ask the pharmacist if your prescription [...] Your Medications These medications were sent to [facility] Discharge Pharmacy - [place] [address] Hours: 30/11 insulin LISPRO 100 UNIT/ML Kwikpen [...] condition and treatment plan. 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 APRN, GLUE SIZE MACHINE OPERATOR 11/25/2023 07:37 [facility] Department of Surgery Pager: via telemediq I have spent 45 minutes with this patient today in which greater than 50% of this time was spent incounseling/coordination of care regarding in patient care, review of imaging/labs, chart review andconsultant recommendations. Dictation Disclaimer: Some notes are completed with voice-recognition dictation software. Errors are generally corrected in real time. Please contact me via [employer] staff message if you note any [...] - Resources for patient (select all that apply):[id number]} documented in this encounter Medications at Time [...] the discharge summary paperwork with medication orders. Campus Security Director opened admission encounter and re-faxed discharge paperwork to the provided fax # of [phone]. Tried a second fax # after this wasn't received, which also wasn't received. Third attempt made viaencrypter email. Confirmed received paperwork via encrypted email. Pepe Hernandez RN, 11/25/2023 9:33 PM ED Clinical Coordinator Office: [phone] [employer]: ED Clinical Coordinator * Kate Harmon [...] (Arrive by 12:50 PM) with Dr Palomo ([facility]-5th floor) since he is discharging to [place].Follows with [facility] when closer to home otherwise. Please page architecture consultant resident with questions. Interval History Patient [...] CDT Preadmission Screening Submitter InformationPerson Being ReferredMedical InformationADL'Nicholas H Noyes Memorial HospitalSubmitResults Results Thank you for submitting a [...] help, contact the Senior LinkAge Line at [phone] or click to contact us. Print this page You have successfully submitted the preadmission screening (PAS) to the Senior LinkAge Line on: Created On 11/24/2023 2:25 PM Your confirmation number is: [id number] Results Level of Care: Based on the information you provided, it appears this person meets level of care for purposes of [place] payment. OBRA: It appears this person does not need an OBRA Level II assessment. Submitter Information Form Type PAS Submitter First and Last Name Caridad Dorsey Direct Agency [facility] Service Type Hospital Street [address] [facility] Zip Code [address] Is your Agency outside [place]? Person Being Admitted to Nursing Facility Legal first name Matt Last name Stephanie Date of 1980 Age 43 Gender Male Marital Status N= Never Race A = B = Black or N = or [place] P = [place] or W = White U = Unable to Determine Ethnicity Not / Currently living with: 01 Living Alone Planned living with 04 Living in Congregate Setting Housing Type Home or apartment, including assisted living () Mailing Address [address] [place] [address] [address] [facility] Medical Information Reason for nursing facility [...] facility the person will admit to?Yes Provider [facility] Nursing Facility Service Type Intermediate [address] [place] [address] If your provider is not listed check [...] for discharge. Planning on discharge today to [facility] pending insurance approval. PLAN: Neuro/Pain Control: Multimodal [...] Trend WBCs and fever Skin/Wounds: Perineal debridement appr-ufh-er-dry dressings with Vashe; Left hallux amputation -Betadine with 4 x 4 DVT prophylaxis: Lovenox and SCDs Weight Bearing: Heel touch WB in surgical shoe. On the LLW Activity: Ad celia PT/OT: Appreciate Recs Disposition: [facility] on 11/24/23 pending insurance authorization 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 APRN, PATRICIA, 11/24/2023 1:43 PM [facility] Department of Surgery Pager: via The [place] Times I have spent 30 minutes with this patient today in which greater than 50% of this time was spent incounseling/coordination of care regarding in patient care, review of imaging/labs, chart review andconsultant recommendations. Dictation Disclaimer: Some notes are completed with voice-recognition dictation software. Errors are generally corrected in real time. Please contact me via [employer] staff message if you note any [...] time () of patient departure: 11/25/2023@1030 Destination: [address] [place] [address] Type of ride: [employer] #conformation [phone] Transportation vendor of ride (choose one below):* [facility] [phone] If this ride needs to [...] Clinical Coordinators will be informed via a [employer] page. PCS form was completed in Progress [...] sex Attending provider: Zac Churchill MD Insurance: [facility] Secondary insurance: [place] [employer] Height: Height: 180.3 cm (5' [...] care/Home mgmt/ADL: 18 minutes EDWIN Alvarado/Brian Pager: [facility] OT Department Problem: Loss of [place] With ADLs, Risk for Goal: Will complete lower body dressing Description: Patient will complete lower body dressing with Modified [place] (6). Outcome: In progress Goal: Will toilet self Description: Patient will toilet self with Modified [place] (6). Outcome: In progress * Lior Azul [...] Patient Preferred [facility] Selected Fdc [address] [place] [phone] -- Internal Comment last updated by Lior Azul 11/24/2023 0805 Pending prior auth. Lior Azul, 11/24/2023 8:05 AM Received VM saying they would accept . LVM saying we would accept bed.. Caridad Dorsey, 11/24/2023 7:50 AM Admissions is currently reviewing .Caridad Dorsey, 11/23/2023 9:31 AM No bd available until next week. Caridad Dorsey, 11/18/2023 8:34 AM [facility] ([facility]) Accepted N/A [address] [facility] [address] [phone] -- Internal Comment last updated by Lior Azul 11/24/2023 0840 They can offer us a bed here but we already found one in [place]. iLor Azul, 11/24/2023 8:40 AM [facility] Pending - Request Sent N/A [address] [facility] [address] [phone] -- Internal Comment last updated by Caridad Dorsey 11/23/2023 0937 LVM for admissions .Caridad Dorsey, 11/23/2023 9:37 AM [facility] Declined Current smoking, Bariatric N/A [address] [facility] [address] [phone] -- The [facility] Declined Distance N/A [address] [address] [phone] -- Internal Comment last updated by iLor Azul 11/22/2023 1215 This is too far from where patient lives. Lior Azul, 11/22/2023 12:18 PM Sent e mail to Allie .Caridad Dorsey, 11/22/2023 8:10 AM LVM for admissions .Caridad Dorsey, 11/19/2023 7:44 AM Sent email to Missy.Caridad Dorsey, 11/17/2023 2:24 PM [facility] Declined No Contract with Patient's Insurance Carrier N/A [address] [place] [address] [phone] -- [facility] Declined Current smoking, Acuity too high N/A [address] [facility] [address] [phone] -- Internal Comment last updated by Caridad Dorsey 11/18/2023 0831 LVM for admissions.Caridad Dorsey, 11/18/2023 8:31 AM [facility], [facility] Declined Bed not available N/A 100[address] [facility] [address] [phone] -- Internal Comment last updated by Lior Azul 11/23/2023 1415 Looking for a bed in the [facility] .Caridad Dorsey, 11/23/2023 9:35 AM LVM for admissions.Caridad Dorsey, 11/19/2023 8:17 AM LVM for admissions.Caridad Dorsey, 11/18/2023 8:37 AM [facility] Declined Bed not available N/A 1175 [facility] [address] [phone] -- The [facility] Declined Bed not available N/A 77[address] [facility] [phone] -- The [facility] Declined Bed not available N/A [address] [facility] [address] [phone] -- Home Medical Care No active coordination exists for this encounter. * 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, FLEET DIRECTOR, GLUE SIZE MACHINE OPERATOR - 11/23/2023 3:06 PM CDT SURGERY PROGRESS NOTE--SAP CONSULTANT Stephanie Low : 1980 Sex: male SIGNIFICANT [...] Trend WBCs and fever Skin/Wounds: Perineal debridement ggkb-fpd-je-dry dressings with Vashe; Left hallux amputation -Betadine with 4 x 4 DVT prophylaxis: Lovenox and SCDs Weight Bearing: Heel touch WB in surgical shoe. On the LLW Activity: Ad celia PT/OT: Appreciate Recs Disposition: Postacute placement recommended-care management and social work looking for a TCU. 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 APRN, CNP, 11/23/2023 3:06 PM [facility] Department of Surgery Pager: via telemediq I have spent 30 minutes with this patient today in which greater than 50% of this time was spent incounseling/coordination of care regarding in patient care, review of imaging/labs, chart review andconsultant recommendations. Dictation Disclaimer: Some notes are completed with voice-recognition dictation software. Errors are generally corrected in real time. Please contact me via [employer] staff message if you note any errors requiring clarification. Surgery Discharge Milestones (Inpatient Primary Team only): Associated attestation - aZc Churchill MD - 11/24/2023 9:39 AM CDT [...] [facility] Pending - Request Sent N/A [address] [facility] [address] -- Internal Comment last updated by Caridad Dorsey 11/23/2023 0931 Admissions is currently reviewing .Caridad Dorsey, 11/23/2023 9:31 AM No bd available until next week. Caridad Dorsey, 11/18/2023 8:34 AM [facility], [facility] Pending - Request Sent N/A 100[address] [facility] [address] [phone] -- Internal Comment last updated by Lior Azul 11/23/2023 1415 Looking for a bed in the [facility] .Caridad Dorsey, 11/23/2023 9:35 AM LVM for admissions.Caridad Dorsey, 11/19/2023 8:17 AM LVM for admissions.Caridad Dorsey, 11/18/2023 8:37 AM [facility] Pending - Request Sent N/A [address] [facility] [address] [phone] -- Internal Comment last updated by Caridad Dorsey 11/23/2023 0937 LVM for admissions .Caridad Dorsey, 11/23/2023 9:37 AM [facility] Declined Current smoking, Bariatric N/A [address] [facility] [address] -- The [facility], [facility] Declined Distance N/A [address] [address] [phone] -- Internal Comment last updated by Lior Azul 11/22/2023 4149 This is too far from where patient lives. Lior Azul, 11/22/2023 12:18 PM Sent e mail to [facility] .Caridad Dorsey, 11/22/2023 8:10 AM LVM for admissions .Caridad Dorsey, 11/19/2023 7:44 AM Sent email to Missy.Caridad Dorsey, 11/17/2023 2:24 PM [facility] Declined No Contract with Patient's Insurance Carrier N/A [address] [place] [address] [phone] -- [facility] Declined Current smoking, [place] [address] [facility] [address] [phone] -- Internal Comment last updated by Caridad Dorsey 11/18/2023 0831 LVM for admissions.Caridad Dorsey, 11/18/2023 8:31 AM [facility] Declined Bed not available N/A 1175 [facility] [address] [phone] -- The [facility] Declined Bed not available N/A [address] [facility] [address] -- The [facility] Declined Bed not available N/A [address] [facility] [facility] [address] [phone] -- Home Medical Care No active coordination exists for this encounter. * Caridad Dorsey - 11/23/2023 9:42 AM CDT Continued Care and Services - Admitted Since 11/10/2023 Destination Service Provider Request Status Selected Services Address Phone Fax Patient Preferred [facility] Pending - Request Sent N/A [address] [facility] [phone] -- Internal Comment last updated by Caridad Dorsey 11/23/2023 0931 Admissions is currently reviewing .Caridad Dorsey, 11/23/2023 9:31 AM No bd available until next week. Caridad Dorsey, 11/18/2023 8:34 AM [facility] Pending - Request Sent N/A 100[address] [facility] [address] -- Internal Comment last updated by Caridad Dorsey 11/23/2023 0935 Looking for a bed in the [facility] .Caridad Dorsey, 11/23/2023 9:35 AM LVM for admissions.Caridad Dorsey, 11/19/2023 8:17 AM LVM for admissions.Caridad Dorsey, 11/18/2023 8:37 AM [facility] Pending - Request Sent N/A 59[address] [facility] [phone] -- [facility] Pending - Request Sent N/A [address] [facility] [address] [phone] -- Internal Comment last updated by Caridad Dorsey 11/23/2023 0937 LVM for admissions .Caridad Dorsey, 11/23/2023 9:37 AM [facility] Declined Current smoking, Bariatric N/A [address] [facility] [address] [phone] -- The [facility] Declined Distance N/A [address] [address] [phone] -- Internal Comment last updated by Lior Azul 11/22/2023 1218 This is too far from where patient lives. Lior Azul, 11/22/2023 12:18 PM Sent e mail to Allie .Caridad Dorsey, 11/22/2023 8:10 AM LVM for admissions .Caridad Dorsey, 11/19/2023 7:44 AM Sent email to Missy.Caridad Dorsey, 11/17/2023 2:24 PM [facility] Declined No Contract with Patient's Insurance Carrier N/A [address] [place] [address] [phone] -- [facility] Declined Current smoking, [place] [id number] [facility] [address] [phone] -- Internal Comment last updated by Caridad Dorsey 11/18/2023 0831 LVM for admissions.Caridad Dorsey, 11/18/2023 8:31 AM [facility] Declined Bed not available N/A 1175 [facility] [address] [phone] -- The [facility] Declined Bed not available N/A [address] [facility] [facility] [address] [phone] -- Home Medical Care No active coordination [...] mgmt/ADL: 13 minutes Chayo Townsend OTR/L Pager: [facility] OT Department Problem: Loss of [place] With ADLs, Risk for Goal: Will complete lower body dressing Description: Patient will complete lower body dressing with Modified [place] (6). Outcome: In progress Goal: Will toilet self Description: Patient will toilet self with Modified [place] (6). Outcome: In progress * Arden Elena [...] gait with or without AD, static/dynamic balance. BAND MANAGER Appropriate: Yes Arden Elena, BAND MANAGER 11/22/2023 Pager: [facility] Dept Problem: Decreased Transfer Skills Goal: Patient will transfer sit to/from stand Description: Patient will transfer sit to/from stand while Heel touch WB on L LE in post-op shoe with (6) Modified [place] in order to mobilize in home by [...] 12:09 PM CDTSummary: DC Planning DC Planning [facility] SABINE Hartman - O: [phone] Retirement RN is calling her asking her [...] agrees with sending referrals to SNFs around [place]. He wants CC to let sister know [...] bedtime. -Continue Amlodipine 10mg Daily - Resume BAND MANAGER losartan 50mg PO Daily when Cr is closer to baseline (1.0) Acute Kidney Injury Monitor urine output and BMP closely. 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 Would give [...] the patient on the date of the filing writer's note. I discussed with the filing writer of the note and agree with their findings and plan documented in the filing writer's note from above. Any revisions by [...] bedtime. -Continue Amlodipine 10mg Daily - Resume BAND MANAGER losartan 50mg PO Daily when Cr is closer to baseline (1.0) Acute Kidney Injury Monitor urine output and BMP closely. 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 Would give [...] admitted on 11/10/2023 as a transfer from [facility] for emergent surgical debridement for demar's [...] are above goal here (FPG goal <150). BAND MANAGER lantus 30 units BID, lispro 10 units TID AC, metformin 500mg BID. A1c 6.8% on 07/27/23. Complications include h/o diabetes related infections. Hold BAND MANAGER metformin while admitted. Continue statin. 11/12 got 25u lantus (<0.2/kg) and 35u aspart. Likely needs increase in insulin dosing but also use caution with impaired renal clearance / worsening renal function and this can contribute to hypoglycemia. Serum glucose levels are slightly improved on BAND MANAGER regimen of 30 U daily Lantus. [...] by facility provider. Paranoid schizophrenia - restarted BAND MANAGER meds (escitalopram 20mg qhs, trazodone 50mg [...] outpatient on 11/25 or 2 Resume patient's BAND MANAGER losartan 50mg PO daily when Cr is closer to baseline (approx 1.0) Strict I/O, monitor UOP. Avoid nephrotoxins (IV contrast, NSAIDs), renal dosing of meds Medicine service will sign off. Please page Hospitalist Consult A on [employer] for any further issues or questions. SUBJECTIVE/Events of Past 24 Hours: Hospital Day: 11 Mr Low feels well today. Denies any symptoms. Pain controlled. He believes postoperative dressing changes can be done by his current penitentiary; I encouraged him to discuss that with his primary team and case specialist. Amenable to plan, looking forward to leaving [...] today 11/19. Labs reviewed Scar Leyva MD [facility] Medicine * Paula Black DPM [...] standpoint. Patient follows with Dr Hayden in [facility] and would prefer to follow up with him upon discharge. We are happy to schedule anappointment with patient if he wishes to follow up with our team. Please page architecture consultant resident with questions. Interval History Patient [...] 11/20/2023 1:28 PM CDT SURGERY PROGRESS NOTE--PGY1 aMtt Thibodeaux Daryamaryzena : 1980 Sex: male SIGNIFICANT [...] and BMP closely. 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 Would give [...] admitted on 11/10/2023 as a transfer from [facility] for emergent surgical debridement for demar's [...] are above goal here (FPG goal <150). BAND MANAGER lantus 30 units BID, lispro 10 units TID AC, metformin 500mg BID. A1c 6.8% on 07/27/23. Complications include h/o diabetes related infections. Hold BAND MANAGER metformin while admitted. Continue statin. 11/12 got 25u lantus (<0.2/kg) and 35u aspart. Likely needs increase in insulin dosing but also use caution with impaired renal clearance / worsening renal function and this can contribute to hypoglycemia. Serum glucose levels are slightly improved on BAND MANAGER regimen of 30 U daily Lantus. Serum glucose levels better controlled today and more consistent in the 126 - 165 range. Continue current dosing for now with monitoring of serum glucose levels. Paranoid schizophrenia - restarted BAND MANAGER meds (escitalopram 20mg qhs, trazodone 50mg qhs, prazosin 1mg qhs). Given paliperidone (Invega) IM on 11/12/23 (due every 4 weeks for schizophrenia) Tobacco use - offer nicotine patches, gum, lozenges while inpatient H/o TBI Obesity RECOMMENDATIONS 11/15/23 Continue Lantus to 30 U qd Continuing amlodipine, monitoring BP to determine if second agent needed with recent improvement Resume patient's BAND MANAGER losartan 50mg PO daily when Cr is closer to baseline (likely ~1.0) Strict I/O, monitor UOP. Avoid nephrotoxins (IV contrast, NSAIDs), renal dosing of meds Medicine service will sign off tomorrow 11/20 if clinical stability/improvement continues. Please page Hospitalist Consult A on [employer] for any further issues or questions. SUBJECTIVE/Events [...] are above goal here (FPG goal <150). BAND MANAGER lantus 30 units BID, lispro 10 units TID AC, metformin 500mg BID. A1c 6.8% on 07/27/23. Complications include h/o diabetes related infections. Hold BAND MANAGER metformin while admitted. Continue statin. 11/12 got 25u lantus (<0.2/kg) and 35u aspart. Likely needs increase in insulin dosing but also use caution with impaired renal clearance / worsening renal function and this can contribute to hypoglycemia. Serum glucose levels are slightly improved on BAND MANAGER regimen of 30 U daily Lantus. One reading of 69 yesterday - unclear if patient had any symptoms. Continue current dosing for now with monitoring of serum glucose levels. Paranoid schizophrenia - restarted BAND MANAGER meds (escitalopram 20mg qhs, trazodone 50mg qhs, prazosin 1mg qhs). Given paliperidone (Invega) IM on 11/12/23 (due every 4 weeks for schizophrenia) Tobacco use - offer nicotine patches, gum, lozenges while inpatient H/o TBI Obesity RECOMMENDATIONS 11/15/23 Continue Lantus to 30 U qd Continuing amlodipine, monitoring BP to determine if second agent needed with recent improvement Resume patient's BAND MANAGER losartan 50mg PO daily when Cr is closer to baseline (likely ~1.0) Strict I/O, monitor UOP. Avoid nephrotoxins (IV contrast, NSAIDs), renal dosing of meds Medicine will continue to follow. Please page Hospitalist Consult A on [employer] for any further issues or questions. SUBJECTIVE/Events [...] today 11/18. Labs reviewed Scar Leyva MD [facility] Medicine * Kenrick Fisher Chi, PT - 11/19/2023 1:21 PM CDT Physical Therapy Patient not seen today d/t prioritisation/time constraints. Kenrick Fisher PT License #[id number] PT Tel #: [phone] On [employer] or [employer] * Nicola Vasquez MD - 11/19/2023 11:54 [...] 2/2 uncontrolled Td2m. 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 male pmhx of T2DM with prior right toe [facility] x 2, currently on [...] of 2 Imaging results: Reviewed in [facility] Gulshan José MD ID fellow, PGY-4 [...] CDT 11/19/23 1038 Rapid Rounds Attendance Charge nurse;competitive intelligence manager;fruit i farmworker Expected Discharge Disposition SNF (TCU) Today we [...] mgmt/ADL: 23 minutes Chayo Townsend, OTR/L Pager: Veveo OT Department Problem: Loss of [place] With ADLs, Risk for Goal: Will complete lower body dressing Description: Patient will complete lower body dressing with Modified [place] (6). Outcome: In progress Goal: Will toilet self Description: Patient will toilet self with Modified [place] (6). Outcome: In progress * Paula Black [...] standpoint. Patient follows with Dr Hayden in [facility] and would prefer to follow up with him upon discharge. We are happy to schedule anappointment with patient if he wishes to follow up with our team. Please page architecture consultant resident with questions. Interval History Patient [...] mgmt/ADL: 35 minutes Chayo Townsend OTR/L Pager: TelAriistoleena OT Department Problem: Loss of [place] With ADLs, Risk for Goal: Will complete lower body dressing Description: Patient will complete lower body dressing with Modified [place] (6). Outcome: In progress Goal: Will toilet self Description: Patient will toilet self with Modified [place] (6). Outcome: In progress * Kenrick Fisher Chi, PT - 11/18/2023 3:23 PM CDT Problem: Decreased Transfer Skills Goal: Patient will transfer sit to/from stand Description: Patient will transfer sit to/from stand while Heel touch WB on L LE in post-op shoe with (6) Modified [place] in order to mobilize in home by [...] up. Reconfirmed that he lives in an INTERMEDIATE- a 1 floor building. Has his own room w a toilet inside. He shares bathing facilities wother residents in the house. He eats his meals and snacks in the dining room. He has NO stairs to negotiate. O:Mimeographer Used: None needed Mental Status Mental Status: [...] remain heel touch WB on L LE. BAND MANAGER Appropriate: Yes Kenrick Fisher PT 11/18/2023 [...] are above goal here (FPG goal <150). BAND MANAGER lantus 30 units BID, lispro 10 units TID AC, metformin 500mg BID. A1c 6.8% on 07/27/23. Complications include h/o diabetes related infections. Hold BAND MANAGER metformin while admitted. Continue statin. 11/12 got 25u lantus (<0.2/kg) and 35u aspart. Likely needs increase in insulin dosing but also use caution with impaired renal clearance / worsening renal function and this can contribute to hypoglycemia. Serum glucose levels are slightly improved today with increase in Lantus to 28 U; increasing today to BAND MANAGER dose of 30 U Lantus daily. Paranoid schizophrenia - restarted BAND MANAGER meds (escitalopram 20mg qhs, trazodone 50mg qhs, prazosin 1mg qhs). Given paliperidone (Invega) IM on 11/12/23 (due every 4 weeks for schizophrenia) Tobacco use - offer nicotine patches, gum, lozenges while inpatient H/o TBI Obesity RECOMMENDATIONS 11/15/23 Increased Lantus to 30 U qd Continuing amlodipine, carvedilol discontinued as patient noted some dizziness and BP now near goal. Resume patient's BAND MANAGER losartan 50mg PO daily when Cr is closer to baseline (likely ~1.0) Strict I/O, monitor UOP. Avoid nephrotoxins (IV contrast, NSAIDs), renal dosing of meds Medicine will continue to follow. Please page Hospitalist Consult A on [employer] for any further issues or questions. SUBJECTIVE/Events [...] today 11/17. Labs reviewed Scar Leyva MD [facility] Medicine * Jabari Colby, RN [...] Services Address Phone Fax Patient Preferred [facility] Pending - Request Sent N/A [address] [address] [phone] -- Internal Comment last updated by Caridad Dorsey 11/19/2023 0745 LVM for admissions .Caridad Dorsey, 11/19/2023 7:44 AM Sent email to Rangely.Caridad Dorsey, 11/17/2023 2:24 PM [facility] Pending - Request Sent N/A [address] [facility] [address] [phone] -- Internal Comment last updated by Caridad Dorsey 11/19/2023 0818 LVM for admissions.Caridad Dorsey, 11/19/2023 8:17 AM LVM for admissions.Caridad Dorsey, 11/18/2023 8:37 AM [facility] Declined N/A [address] [facility] [address] -- [facility] Declined No Contract with Patient's Insurance Carrier N/A [address] [place] [address] [phone] -- [facility] Declined Current smoking, Acuity too high N/A [id number] [facility] [id number] -- Internal Comment last updated by Caridad Dorsey 11/18/2023 0831 LVM for admissions.Caridad Dorsey, 11/18/2023 8:31 AM [facility] Declined Bed not available N/A [id number] [facility] [phone] -- Internal Comment last updated by Caridad Dorsey 11/18/2023 0834 No bd available until next week. Caridad Dorsey, 11/18/2023 8:34 AM [facility] Declined Bed not available N/A [address] [facility] [address] [phone] -- Home Medical Care No active coordination exists for this encounter. 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 male pmhx of T2DM with prior right toe [facility], s/p I&D x 2, [...] 11/17/[address] Mullen-operative note available in [employer] Seen this a.m. and was quite sleepy. [...] of 2 Imaging results: Reviewed in [facility] Gulshan José MD, 11/18/2023 8:26 AM [...] standpoint. Patient follows with Dr Hayden in [facility] and would prefer to follow up with him upon discharge. We are happy to schedule anappointment with patient if he wishes to follow up with our team. Please page architecture consultant resident with questions. Patient was discussed with architecture consultant staff, Interval History Patient was seen [...] urine output closely. 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 Would give [...] renal dysfunction, though UOP is acceptable. Holding BAND MANAGER losartan 50mg daily. Started amlodipine 10 [...] are above goal here (FPG goal <150). BAND MANAGER lantus 30 units BID, lispro 10 units TID AC, metformin 500mg BID. A1c 6.8% on 07/27/23. Complications include h/o diabetes related infections. Hold BAND MANAGER metformin while admitted. Continue statin. 11/12 [...] and diet improve. Paranoid schizophrenia - restarted BAND MANAGER meds (escitalopram 20mg qhs, trazodone 50mg [...] carvedilol and amlodipine as above Resume patient's BAND MANAGER losartan 50mg PO daily when Cr is closer to baseline (likely ~1.0) Switching to IV PRN hydralazine for more aggressive BP control Strict I/O, monitor UOP. Avoid nephrotoxins (IV contrast, NSAIDs), renal dosing of meds Medicine will continue to follow. Please page Hospitalist Consult A on [employer] for any further issues or questions. SUBJECTIVE/Events [...] Amaury Lazo 11/17/2023 14:54 Pager: [employer] * Shannna Caruso OTR/Brian - 11/17/2023 1:00 PM CDT Pt in the OR this morning, now s/p amputation, toe left. Will hold OT for today, and will check back tomorrow. Shannan Partida OTR/Brian Pager: [phone] * Mabel Mathews RN - 11/17/2023 11:27 AM CDT TRANSFER IN NOTE D: Patient transferred in to STNU 2 from PACU at 1100. Patient condition on arrival: Stable, a/o X4, VSS, on RA, . Patient Belonging 11/10/2023 1440 Reason for Inventory: ED/APS Admission Patient or family informed of Patient Valuables and Belongings Policy (#[id number]): Due to patient condition, [facility] staff will inventory [...] AM CDT 11/17/231033 Rapid Rounds Attendance Physician;Charge nurse;competitive intelligence manager;fruit i farmworker;Bedside nurse Expected Discharge Disposition SNF (TCU for wound care) Today we still await: Procedure (Comment) (toe amputation today) Case Management Discharge Milestones Documentation CM Assessment Completed? Yes Patient/Family agree w/DC plan? Yes Transportation Plan WC/Taxi/Stretcher Prior Auth/Pre-Admit Screen (!) Not completed 11/17/231033 Rapid Rounds Attendance Physician;Charge nurse;competitive intelligence manager;fruit i farmworker;Bedside nurse Expected Discharge Disposition SNF (TCU for wound care) Today we still await: Procedure (Comment) (toe amputation today) Case Management Discharge Milestones Documentation CM Assessment Completed? Yes Patient/Family agree w/DC plan? Yes Transportation Plan WC/Taxi/Stretcher Prior Auth/Pre-Admit Screen (!) Not completed Pt will DC to TCU, as [facility] cannot do the daily dressing changes to [...] discharge. Patient follows with Dr Hayden in [facility] CHIEF COMPLAINT: Immediate postop HISTORY OF [...] SIGNIFICANT EVENTS IN THE PAST 24 HRS: AMRLEN SHELL since midnight for toe amputation at [...] urine output closely. 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 Would give [...] Fisher, PT License #[id number] PT Tel #: [phone] On [employer] or [employer] * Nico Hogue MD - 11/16/2023 9:49 [...] Actinomyces species Medicine consult (11/14): Resume patient's BAND MANAGER losartan 50mg PO daily when Cr [...] urine output closely. 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 Would give [...] are above goal here (FPG goal <150). BAND MANAGER lantus 30 units BID, lispro 10 units TID AC, metformin 500mg BID. A1c 6.8% on 07/27/23. Complications include h/o diabetes related infections. Hold BAND MANAGER metformin while admitted. Continue statin. 11/12 [...] renal dysfunction, though UOP is acceptable. Holding BAND MANAGER losartan 50mg daily. Agree with prn hydralazine but would changeto PO. Could start new agent (such as amlodipine) but patient should ultimately resume ARB once renal function is improved Paranoid schizophrenia - restarted BAND MANAGER meds (escitalopram 20mg qhs, trazodone 50mg qhs, prazosin 1mg qhs). Given paliperidone (Invega) IM on 11/12/23 (due every 4 weeks for schizophrenia) Tobacco use - offer nicotine patches, gum, lozenges while inpatient H/o TBI Obesity RECOMMENDATIONS 11/15/23 Continue Lantus 28 U daily for now; may need to continue titration as diet and Resume patient's BAND MANAGER losartan 50mg PO daily when Cr [...] follow. Please page Hospitalist Consult A on [employer] for any further issues or questions. SUBJECTIVE/Events [...] at baseline. Labs reviewed Scar Leyva MD [facility] * Chayo Townsend, OTR/L [...] brief walk in hallway- pt tends to turkey picker walker versus push- does not use [...] provide clear picture of assistance available at [facility]- however, per chart review only receives assistance [...] Pager: Lisa OT Department Problem: Loss of [place] With ADLs, Risk for Goal: Will complete lower body dressing Description: Patient will complete lower body dressing with Modified [place] (6). 11/15/2023 1400 by Chayo Townsend OTR/Brian Outcome: In progress 11/15/2023 1357 by Chayo Townsend OTR/Brian Outcome: In progress Goal: Will toilet self Description: Patient will toilet self with Modified [place] (6). 11/15/2023 1400 by Chayo Townsend OTR/Brian Outcome: In progress 11/15/2023 1357 by Chayo Townsend OTR/Brian Outcome: In progress * Kenrick Fisher Chi, PT - 11/15/2023 11:23 AM CDT Images from the original note were not included. Problem: Decreased Transfer Skills Goal: Patient will transfer sit to/from stand Description: Patient will transfer sit to/from stand with (6) Modified [place] in order to mobilize in home by 11/28/23. Outcome: In progress Problem: Decreased Ambulatory Skills Goal: Improve gait Description: Ambulate 100 meters using No assistive devices with (6) Modified [place] in orderto mobilize in home and community [...] transfer supine to/from sit with (6) Modified [place] in order to mobilize in/out of bed [...] be good for someone to contact his INTERMEDIATE to see what kind of help he gets/can get from INTERMEDIATE staff and if he needs to do [...] vs try no AD. Try stairs eventually? BAND MANAGER Appropriate: Yes Kenrick Fisher, PT 11/15/2023 [...] Actinomyces species Medicine consult (11/14): Resume patient's BAND MANAGER losartan 50mg PO daily when Cr [...] urine output closely. 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 Would give [...] Crawford LGSW - 11/15/2023 9:39 AM CDT Bronze Chaser Progress Note Spoke to SABINE Hartman at [facility], where patient resides. Informed her pt will likely be ready for discharge towards the end of the week per MDR. Asked if they are able to assist with daily wound care. Unfortunately facility cannot help with this. The facility helps with med management, meals, housekeeping, and laundry. May have to explore options for home health or TCU for woundcare. [facility] - [phone] opt 3. Dominga Crawford LGSW, 11/15/2023 2:59 [...] pt may be able [facility] given participation with PT on 11/13 but [...] are above goal here (FPG goal <150). BAND MANAGER lantus 30 units BID, lispro 10 units TID AC, metformin 500mg BID. A1c 6.8% on 07/27/23. Complications include h/o diabetes related infections. Hold BAND MANAGER metformin while admitted. Continue statin. 11/12 got 25u lantus (<0.2/kg) and 35u aspart. Likely needs increase in insulin dosing but also use caution with impaired renal clearance / worsening renal function and this can contribute to hypoglycemia. HTN - above goal overnight. ARB is being held. Also may be hypervolemic given renal dysfunction, though UOP is acceptable. Holding BAND MANAGER losartan 50mg daily. Agree with prn hydralazine but would changeto PO. Could start new agent (such as amlodipine) but patient should ultimately resume ARB once renal function is improved Paranoid schizophrenia - restarted BAND MANAGER meds (escitalopram 20mg qhs, trazodone 50mg qhs, prazosin 1mg qhs). Given paliperidone (Invega) IM on 11/12/23 (due every 4 weeks for schizophrenia) Tobacco use - offer nicotine patches, gum, lozenges while inpatient H/o TBI Obesity RECOMMENDATIONS 11/15/23 Increase lantus to 28 units q24h Resume patient's BAND MANAGER losartan 50mg PO daily when Cr is closer to baseline (likely ~1.0) Recommend hydralazine 10mg PO q6h prn for SBP >180 Strict I/O, monitor UOP. Avoid nephrotoxins (IV contrast, NSAIDs), renal dosing of meds Medicine will continue to follow. Please page Hospitalist Consult A on [employer] for any further issues or questions. SUBJECTIVE/Events [...] - 11/14/2023 2:55 PM CDT SURGERY PROGRESS NOTE--SAP CONSULTANT Matt Low : 1980 Sex: male SIGNIFICANT [...] urine output closely. 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 Would give [...] assist Disposition: CHRIS Cordero Ma MS3 11/14/2023 [facility] Department of Surgery Pager: via telemediq [...] are above goal here (FPG goal <150). BAND MANAGER lantus 30 units BID, lispro 10 units TID AC, metformin 500mg BID. A1c 6.8% on 07/27/23. Complications include h/o diabetes related infections. Hold BAND MANAGER metformin while admitted. Continue statin. 11/12 got 25u lantus (<0.2/kg) and 35u aspart. Likely needs increase in insulin dosing but also use caution with impaired renal clearance / worsening renal function and this can contribute to hypoglycemia. HTN - above goal overnight. ARB is being held. Also may be hypervolemic given renal dysfunction, though UOP is acceptable. Holding BAND MANAGER losartan 50mg daily. Agree with prn hydralazine but would changeto PO. Could start new agent (such as amlodipine) but patient should ultimately resume ARB once renal function is improved Paranoid schizophrenia - restarted BAND MANAGER meds (escitalopram 20mg qhs, trazodone 50mg [...] follow. Please page Hospitalist Consult A on [employer] for any further issues or questions. SUBJECTIVE/Events [...] PharmD 11/13/2023 15:25 Pager: (Telmedia) * Nico Houge MD - 11/13/2023 8:25 AM CDT Images [...] species 11/10/2023 1713 11/12/2023 1417 ANAEROBE CULTURE [[id number]] (Abnormal) Tissue from Perineal 2:Perineal tissue Preliminary result Component Value Preliminary Report Positive Culture Many mixed anaerobes present. Culture in progress. POS 11/10/2023 1713 11/12/2023 1441 TISSUE CULTURE:INCLUDES GRAM STAIN [[id number]] (Abnormal) Tissue from Perineal 2:Perineal tissue Preliminary [...] POS 11/10/2023 1712 11/12/2023 1416 ANAEROBE CULTURE [[id number]] (Abnormal) Swab from Perineal 1: Perineal tissue swab Preliminary result Component Value Preliminary Report Moderate Anaerococcus vaginalis isolated. Culture in progress. POS Organism ANAEROCOCCUS VAGINALIS POS 11/10/2023 1712 11/12/2023 1534 WOUND CULTURE:GRAM STAIN OPTIONAL [[id number]] (Abnormal) Swab from Perineal 1: Perineal tissue [...] NPO with excellent blood sugarcontrol. - hold precinct police captain metformin while admitted, resume on discharge [...] hypertension while here - agree with holding precinct police captain antihypertensives (losartan 50mg daily, , consider restarting closer to DC - restart precinct police captain rosuvastatin 10mg qHS Paranoid schizophrenia - restart precinct police captain escitalopram 20mg qhs, trazodone 50mg qhs, prazosin 1mg qhs (ordered) - receives outpatient paliperidone (Invega) IM every 4 weeks for schizophrenia at [facility], unclear when last dose was. Would give [...] RECOMMENDATIONS: Demar's Gangrene Necrotizing fasciitis Transferred from [facility] for scrotal swelling, pain, concern [...] NPO with excellent blood sugarcontrol. - hold precinct police captain metformin while admitted, resume on discharge [...] hypertension while here - agree with holding precinct police captain antihypertensives (losartan 50mg daily, , consider restarting closer to DC - restart precinct police captain rosuvastatin 10mg qHS Paranoid schizophrenia - restart precinct police captain escitalopram 20mg qhs, trazodone 50mg qhs, prazosin 1mg qhs (ordered) - receives outpatient paliperidone (Invega) IM every 4 weeks for schizophrenia at [facility], unclear when last dose was. Would give dose here if due and if available on formulary. Tobacco use - offer nicotine patches, gum, lozenges while inpatient - cessation counseling as able (pt unable to engage today) H/o TBI Obesity PLAN: Neuro/Pain Control: Multimodal Scheduled: Tylenol, Gabapentin, cyclobenzaprine PRN: Hydromorphone CV: Monitor blood pressure and pulse and intervene as needed. Restart precinct police captain rosuvastatin 10mg qHS Pulm: Encourage incentive [...] Disposition: Nico Murray MD, 11/13/2023 8:25 AM [facility] Department of Surgery Pager: via telemediq [...] Type 2 DM with neuropathy, retinopathy - BAND MANAGER lantus 30 units BID, lispro 10 units TID AC, [id number] BID. A1c 6.8% on 07/27/23. Complications include h/o diabetes related infections. Hold BAND MANAGER metformin while admitted. Continue statin. HTN - mostly at goal off antihypertensives. Holding BAND MANAGER losartan 50mg daily Paranoid schizophrenia - restarted BAND MANAGER meds (escitalopram 20mg qhs, trazodone 50mg [...] follow. Please page Hospitalist Consult A on [email or web address] for any further issues or questions. SUBJECTIVE/Events [...] recent) Gala Salinas, PharmD 11/12/2023 14:59 Pager: (TelAriistoq) * Grcaia Kumar, RN - 11/12/2023 1:00 PM CDT 11/12/23 8704 Mimeographer Used. Mimeographer Used None needed (interview conducted with [facility] staff) Social Information Living Situation residential Facility Admitted From hospital (Admitted from [facility]) Name of facility [facility] Patient medically appropriate to transfer back to outside hospital? No Patient Identified Support System [facility] staff Services Receiving COAT CUTTER / Skilled Services;Case Management;Waivered services (see comment) Complex Medical Needs Other (see comment) Transportation Used for Discharge wound care Safety Concerns None Behavioral Health Concerns None Patient Family Goals Patient's Discharge Goal back to [facility] Family's Discharge Goal no family Plan/Interventions Expected Discharge Disposition Retirement Was Patient Choice Provided? No Who was Choice Provided to? Other (comment) (pt will return to BAND MANAGER facility when medically stable) Patient Information Verification Verified demographic information, including SSN, Next of Kin, and Guardianship Yes Verified PCP Yes If post-acute placement is needed, have vaccination status needs been addressed? Yes Pt admitted from [facility] for treatment of Demar's gangrene of perineal area * Nico Hogue MD - 11/12/2023 8:02 AM CDT SURGERY PROGRESS NOTE--SAP CONSULTANT Matt Thibodeaux Daryamaryzena : 1980 Sex: male [...] Disposition: Nico Murray MD, 11/12/2023 8:03 AM [facility] Department of Surgery Pager: via telemediq [...] Comments: RN: Gloria Velez RN Extension #: [id number] * Robert Kruse MDIV - 11/11/2023 1:43 PM CDT SPIRITUAL CARE VISIT SUMMARY Matt Low : 1980 Sex: male LOS: 1 day Reason for visit: Referral Assessment: Pt/family uncertain/anxious/frustrated;Pt/family coping/relieved Intervention: Compassionate support;Facilitate communication;Lead/support spiritual rituals Outcome: Situation assessed;Gratitude expressed;Ritual provided Notes: I met with Matt at bedside during rounds. Matt shared that he wanted a prayer for healing and rastafari of his health which I offered as requested. He had no other support needs at this time. Plan: Spiritual Care Team is available to support patient and family as needed via number [phone]. Robert Kruse MDIV, 11/11/2023 1:43 PM Number: [phone] * Hannah Boland RT - 11/11/2023 12:40 [...] informed of Patient Valuables and Belongings Policy (#[id number]): Due to patient condition, [facility] staff will inventory and secure patient valuables Items Needing Securement: Cell phone Cell Phone Secured?: Yes Cell Phone Visually Damaged: Yes Patient Belongings: Clothing Clothing Comments: shirt, 1 shoe, 1 sock, * Gracia Tirado MDIV - 11/10/2023 3:26 PM CDT [facility] Sander Stabilization Room Note Matt Low : 1980 Sex: male LOS: 0 days Initial Description: Matt Low with history of gangrene. Pt was responding appropriately to questions. Patient and Family Context: No family present. Pt came from a facility in [place]. Plan: Spiritual Care Team is available to support patient and family as needed via number [phone]. Gracia Tirado MDIV, 11/10/2023 3:27 PM Number: [phone] * Camilla Treviño, PharmD - 11/10/2023 2:38 [...] with prior right toe amputations transferred from [facility] with Demar's gangrene admitted on 11/09 [...] for 2 days. He was transferred from [place] for Demar's gangrene. 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 CT at OSH showed gas in perineal [...] the patient on the date of the filing writer's note. I discussed with the filing writer of the note and agree with their findings and plan documented in the filing writer's note from above. Any revisions by [...] medications. Assessment: Pertinent points to note: -- BAND MANAGER losartan, metformin and ibuprofen all discontinued [...] pharmacist on service at [employer] ([employer]) [phone]. If no response within needed timeframe, please contact central pharmacy via phone at [phone]. Planned discharge medications are: Medication List Medications [...] 2 Diabetes Reduced from twice daily dosing BAND MANAGER, per Medicine recommendations. insulin LISPRO 100 UNIT/ML Kwikpen Commonly known as: HumaLOG KwikPen Inject 6 UNITS subcutaneously 3 times daily before meals. Reduced from 10 units per dose BAND MANAGER, per Medicine recommendations. Invega Sustenna 156 [...] follow. Patient follows with Dr Hayden in [place] BAND MANAGER Please page architecture consultant resident with questions. Patient was seen with architecture consultant staff, Dr. Black CHIEF COMPLAINT: Left hallux wound HISTORY OF PRESENT ILLNESS: Matt Low is a 43 y.o. male presenting with left hallux necrosis. Patient initially presented to [facility] for concern for [...] 74.09 Activity Intolerance Z 73.89 PRECAUTIONS Falls Mimeographer Used: None needed ACTIVITY Up ad Celia [...] Type 2 DM with neuropathy, retinopathy - BAND MANAGER lantus 30 units BID, lispro 10 units TID AC, [id number] BID. A1c 6.8% on 07/27/23. Complications include h/o diabetes related infections. Hold BAND MANAGER metformin while admitted. Continue statin. HTN - mostly at goal off antihypertensives. Holding BAND MANAGER losartan 50mg daily Paranoid schizophrenia - restarted BAND MANAGER meds (escitalopram 20mg qhs, trazodone 50mg qhs, prazosin 1mg qhs). Given paliperidone (Invega) IM on 11/12/23 (due every 4 weeks for schizophrenia) Tobacco use - offer nicotine patches, gum, lozenges while inpatient Medical History No past medical history on file. SOCIAL HISTORY Information gathered from: Patient Home: penitentiary in [place] Prior level of function: independent Baseline Ambulation: [...] Status: Oriented X 3, Alert, and Cooperative, [facility] Follows Direction: Yes, 1step OBJECTIVE Initial [...] notes. A&Ox3, but thought at hospital in [facility]. Anticipate pt will be able to [...] when ready, stairs as able, standing balance. BAND MANAGER Appropriate: Yes Participated in goal setting and treatment planning: Patient Agrees with goals and treatment plan: Patient - Yes. Che Garcia, PT 11/14/2023 Pager: [facility] PT Department * Guru Franco MD - 11/13/2023 1:14 PM CDTAssociated Order(s): CONSULT TO INFECTIOUS DISEASE ID-2 NEW CONSULT NOTE Matt Low 1980 male [id number] REASON FOR CONSULT: I was asked to see Matt Thibodeaux Daryabailey by Zac Churchill regarding Demar's gangrene. ASSESSMENT: 43 y.o. male pmhx of T2DM with prior right toe amputations transferred from [facility] for[facility]nier's gangrene, s/p I&D x [...] with prior right toe amputations transferred from [facility] forscrotal swelling, pain, concern for [...] cx [facility] MD, 11/13/2023 1:14 PM FACULTY NOTE I [...] date) Patient is living in a/an : penitentiary Prior Level of Function: ADLs/IADLs: Received assistance [...] to month and year; not to place [facility]; intermittently follows 1 steps commands; confused [...] (11/09 and 11/10). At baseline pt from penit[facility]iary. Pt unable to provide any social history [...] Eval: 18 minutes Therapist: EDWIN Alvarado/Brian Pager: [facility] Occupational Therapy Department * Sophie Barajas MD - 11/12/2023 10:07 AM CDTAssociated Order(s): CONSULT TO MEDICINE SERVICES INTERNAL MEDICINE CONSULT- STAFF Matt Low : 1980 Sex: male Reason for Consult: Diabetes management, antibiotic selection IMPRESSION AND RECOMMENDATIONS: Demar's Gangrene Necrotizing fasciitis Transferred from [facility] for scrotal swelling, pain, concern [...] NPO with excellent blood sugarcontrol. - hold precinct police captain metformin while admitted, resume on discharge [...] hypertension while here - agree with holding precinct police captain antihypertensives (losartan 50mg daily, , consider restarting closer to DC - restart precinct police captain rosuvastatin 10mg qHS Paranoid schizophrenia - restart precinct police captain escitalopram 20mg qhs, trazodone 50mg qhs, prazosin 1mg qhs (ordered) - receives outpatient paliperidone (Invega) IM every 4 weeks for schizophrenia at [facility], unclear when last dose was. Would give [...] long enough to participate indiscussion. Transferred from [facility] for scrotal pain and swelling, [...] including pre-visit review of separately obtained history, [id number] interaction performing medically appropriate physical exam, patientcounseling/education, [...] 3:41 PM CDT Operative Report - PGY2 [facility] Matt Anne : 1980 Sex: M [...] 6:07 PM CDT OPERATIVE REPORT - PGY5 [facility] Matt Low : 1980 Sex: male [...] PM CDT Pt BIBA as transfer from [place]. 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 Pt given Ertapenem 1gm and Insulin 10 units BAND MANAGER. BS 400 at outside hospital. Pt [...] Physical Therapy Inpatient Discharge Summary Stephanie Low [id number] PT Discharge Recommendations DC Recommendations: Post-acute placement [...] LE in post-op shoe with (6) Modified [place] in order to mobilize in home by [...] Therapist: Kenrick Fisher, PT Date: 11/24/2023 Pager: [facility] PT Department * Discharge non-MD/non-MIRI Summaries - Lior Azul - 11/25/2023 7:36 AM CDT Summary: DC to SNF Care Coordination Discharge Note Expected DC Date: 11/25/23 Expected DC Time: 13h30 Final Discharge Destination: Selected Continued Care - Admitted Since 11/10/2023 Destination Coordination complete. Service Provider Selected Services Address Phone Fax Patient Preferred [facility] [address] [facility] [phone] -- Summary: Insurance approved Patient has been accepted to continue rehabing at the aforementioned post acute facility. Patient is on board with plan. CC spoke with patient in person in the room Campus Security Director also confirmed with Minnie REGALADO at . Also, DC summary faxed to [phone], via [employer]. WC ride has been ordered. [facility] ([facility] Art Therapist) will schedule. Check [id number] for confirmation. Medical team is aware. They will work writing DC orders. CC sent DC orders to SNF by Epic fax. Medical team is aware any controlled substances must be printed and signed to be sent in physical form to the TCU. PLEASE MAKE SURE RX IS COMPLETE. MAKE SURE QUANTITY IS ADDED. Also, PSC/MANGLE TENDER CLOTH/RN will fax it to TCU olga (this is required so in case of pain during transport, pain control can be addressed) Bedside nurse: please confirm this is done. A [employer] thread has been started. CC will continue to follow until DC. Please use Tele[employer]social[employer] for any further questions. * Nursing Assessment [...] Townsend, OTR/L - 11/24/2023 12:59 PM CDT [facility] Occupational Therapy Discharge Summary Stephanie Low [...] subacute rehab. Patient Name: Stephanie Low MR#: [id number] Date of : 1980 Age: 43 y.o. [...] 1100) Patient is living in a/an : penitentiary (11/13/23 1100) Prior Level of Function (BAND MANAGER): ADLs/IADLs: Received assistance from staff at [...] RN - 11/23/2023 4:39 PM CDT Per [employer] no longer meets IP criteria, documentation in [...] Toe Head to Toe Assessment Shift Summary [id number] Pt is a/o X4 and can make [...] lunch. Will continue to monitor with POC. Leilnai Sim RN, 11/22/2023 12:34 PM Neurologic/Cognitive Within [...] Cardiac Assessment Within Defined Limits except for: Building Cleaning Supervisor - remote telemetry Respiratory Within defined limits [...] Limits except for: Heart sounds: S1, S2 Building Cleaning Supervisor - remote telemetry Comments: Consistently sustaining SBP [...] Toe Head to Toe Assessment Shift Summary [id number] Pt is a/o X4 and can make [...] Cardiac Assessment Within Defined Limits except for: Building Cleaning Supervisor - remote telemetry Respiratory Within defined limits [...] Palomo DPM - 11/17/2023 9:26 AM CDT [facility] Immediate Post Operative Note Note written: [...] Patient to the OR at 0800. This filing writer called to notify BARBER INSTRUCTORrn staff of hypertension. Pt had left the room prior to [facility] notifying this filing writer of BP of 222/101. Vitals: 11/17/23 [...] wants to go outside to smoke, and filing writer encouraged the patient not to go [...] Cardiac Assessment Within Defined Limits except for: Building Cleaning Supervisor - remote telemetry Respiratory Assessment Within Defined [...] Cardiac Assessment Within Defined Limits except for: Building Cleaning Supervisor - remote telemetry Respiratory Assessment Within Defined [...] Defined Limits except for: Chest Pain: No Building Cleaning Supervisor - remote telemetry Pacemaker: Pacemaker: No Respiratory [...] Cardiac Assessment Within Defined Limits except for: Building Cleaning Supervisor - remote telemetry Comments: NSR Respiratory Within [...] Cardiac Assessment Within Defined Limits except for: Building Cleaning Supervisor - remote telemetry Respiratory Assessment Within Defined [...] Cardiac: Assessment Within Defined Limits except for: Building Cleaning Supervisor - remote telemetry Respiratory: Assessment Within Defined [...] Note - PGY-1 Matt Low 43 y.o. [id number] Paged at 03:34 on 11/14/23 for elevated [...] for SBP > 180 - Potentially resume BAND MANAGER losartan per primary team in the [...] Cardiac Assessment Within Defined Limits except for: Building Cleaning Supervisor - remote telemetry Respiratory Assessment Within Defined [...] Cardiac Assessment Within Defined Limits except for: Building Cleaning Supervisor - remote telemetry Pacemaker: Pacemaker: No Respiratory [...] Cardiac Assessment Within Defined Limits except for: Building Cleaning Supervisor - remote telemetry Respiratory Assessment Within Defined [...] Cardiac Assessment Within Defined Limits except for: Building Cleaning Supervisor - remote telemetry Respiratory Assessment Within Defined [...] Cardiac Assessment Within Defined Limits except for: Building Cleaning Supervisor - remote telemetry Respiratory Assessment Within Defined [...] Nichols MD - 11/11/2023 3:13 PM CDT [facility] Immediate Post Operative Note Note written: [...] Osborn MD - 11/10/2023 5:07 PM CDT [facility] Immediate Post Operative Note Note written: [...] at time of review in ED - precinct police captain abx administered * ED Stabilization Note - Allyssa Drummond MD - 11/10/2023 2:43 PM CDT Emergency Department Stabilization Room Note [facility] Arrival Date and Time: 11/10/2023 2:28 PM MEDICAL TEAM Attending: MD MARCELLUS Grullon Resident: Allyssa Drummond MD RN: Enmanuel HCA: Doreen Consultants: General surgery PRE-HOSPITAL EVENTS & HISTORY Matt Low is a 43 y.o. 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 2 days ago he noticed pain in his perineum, it has gotten worse over the past several days. His girlfriend urged him to go to the hospital today and the physicians at [place] were concerned for Demar'sgangrene and transferred him [...] CRP 30, procal 0.83, WBC 20 at [place]. We will draw an ESR and our [...] POC Glucose 140(H) 70 - 100 mg/dL [facility] Blood 11/25/2023 6:03 AM CDT Jessica Grullon MD LABORATORY [facility] [address] [place] [address], * (ABNORMAL) POC GLUCOSE (11/24/2023 8:47 PM CDT) POC Glucose 156(H) 70 - 100 mg/dL [facility] POINT OF CARE Blood 11/24/2023 8:47 PM CDT Jessica Grullon MD LABORATORY Performing Organization Address City/[facility]/ZIP Co de Phone Number [facility] [address] [place] [address], [place] * (ABNORMAL) POC GLUCOSE (11/24/2023 4:56 PM CDT) POC Glucose 177(H) 70 - 100 mg/dL [facility] Blood 11/24/2023 4:56 PM CDT Jessica Grullon MD LABORATORY Performing Organization Address City/[facility] Co de Phone Number [facility] [address] [place] [address], [place] * (ABNORMAL) POC GLUCOSE (11/24/2023 11:22 AM CDT) POC Glucose 146(H) 70 - 100 mg/dL [facility] Blood 11/24/2023 11:2 2 AM CDT Jessica Grullon MD LABORATORY Performing Organization Address City/[facility]/ZIP Co de Phone Number [facility] PO[facility] [address] [place] [address], [place] * (ABNORMAL) POC GLUCOSE (11/24/2023 6:03 AM CDT) POC Glucose 147(H) 70 - 100 mg/dL [facility] Blood 11/24/2023 6:03 AM CDT Jessica Grullon MD LABORATORY Performing Organization Address City/[facility]/ZIP Co de Phone Number [facility] [address] [place] [address], [place] * (ABNORMAL) POC GLUCOSE (11/23/2023 7:52 PM CDT) POC Glucose 160(H) 70 - 100 mg/dL [facility] Blood 11/23/2023 7:52 PM CDT Jessica Grullon MD LABORATORY Performing Organization Address [facility] Co de Phone Number [facility] [address] [place] [address], [place] * (ABNORMAL) POC GLUCOSE (11/23/2023 4:18 PM CDT) POC Glucose 156(H) 70 - 100 mg/dL [facility] Blood 11/23/2023 4:18 PM CDT Jessica Grullon MD LABORATORY Performing Organization Address [facility] Co de Phone Number [facility] [address] [place] [address], [place] * (ABNORMAL) POC GLUCOSE (11/23/2023 11:13 AM CDT) [facility] POC Glucose 182(H) 70 - 100 mg/dL [facility] Blood 11/23/2023 11:1 3 AM CDT Jessica Grullon MD LABORATORY Performing Organization Address [facility] Co de Phone Number [facility] [address] [place] [address], [place] * (ABNORMAL) PANEL BASIC METABOLIC (BMP) (11/23/2023 8:31 AM CDT) CO2 24 22 - 30 mmol/L [facility] Glucose 192(H) 70 - 100 mg/dL [facility] BUN 20 6 - 20 mg/dL [facility] Creatinine 1.96(H) 0.70 - 1.25 mg/dL [facility] Calcium 8.5(L) 8.6 - 10.0 mg/dL [facility] Sodium 137 135 - 148 mmol/L [facility] Potassium 5.1 3.5 - 5.3 mmol/L [facility] Chloride 103 92 - 108 mmol/L [facility] eGFR (2020 CKD-EPI) 42(L) >=60 ml/min/1.7 3m2 [facility] Comment: The estimated glomerular filtration rate (eGFR) was calculated using the CKD-EPI 2020 creatinine equation, which does not include race as a factor. This equation is validated in individuals 18 years of age and older, and eGFR is normalized to a body surface area of 1.73m^2. AnGap 10 8 - 16 mmol/L [facility] Blood 11/23/2023 8:31 AM CDT 11/23/2023 9:12 AM CDT Zac Churchill MD LABORATORY [facility] [address] [address] * (ABNORMAL) CBC WITH PLATELET (11/23/2023 8:31 AM CDT) WBC 13.36(H) 4.00 - 10.00 k/cmm [facility] RBC 3.57(L) 4.60 - 6.00 m/cmm [facility] Hgb 10.0(L) 13.1 - 17.5 g/dL [facility] Hematocrit 31.5(L) 40.0 - 51.0 % [facility] MCV 88.2 80.0 - 100.0 fL [facility] MCH 28.0 25.0 - 32.0 pg [facility] MCHC 31.7 31.0 - 36.0 g/dL [facility] RDW 14.4 11.5 - 14.5 % [facility] Plt 492(H) 150 - 400 k/cmm [facility] MPV 9.1 6.5 - 12.5 fL [facility] Blood 11/23/2023 8:31 AM CDT 11/23/2023 9:11 AM CDT Zac Churchill MD LABORATORY [facility] [address] [place] [address] * (ABNORMAL) POC GLUCOSE (11/23/2023 6:43 AM CDT) POC Glucose 121(H) 70 - 100 mg/dL [facility] Blood 11/23/2023 6:43 AM CDT Jessica Grullon MD LABORATORY Performing Organization Address City/[facility]/ZIP Co de Phone Number [facility] POINT OF [facility] [address] [place] [address], [place] * POC GLUCOSE (11/22/2023 8:28 PM CDT) POC Glucose 95 70 - 100 mg/dL [facility] Blood 11/22/2023 8:28 PM CDT Jessica Grullon MD LABORATORY Performing Organization Address City/[facility]/ZIP Co de Phone Number [facility] POINT OF [address] [address], [place] * (ABNORMAL) POC GLUCOSE (11/22/2023 4:10 PM CDT) POC Glucose 176(H) 70 - 100 mg/dL [facility] POINT OF CARE Blood 11/22/2023 4:10 PM CDT Jessica Grullon MD LABORATORY [facility] POINT OF CARE [address] [place] [address], [place] * (ABNORMAL) POC GLUCOSE (11/22/2023 11:21 AM CDT) POC Glucose 201(H) 70 - 100 mg/dL [facility] Blood 11/22/2023 11:2 1 AM CDT Jessica Grullon MD LABORATORY Performing Organization Address City/[facility]/ZIP Co de Phone Number [facility] [address] [place] [address], * (ABNORMAL) CYSTATIN C (11/22/2023 9:23 AM CDT) Cystatin C 1.43(H) 0.61 - 0.95 mg/L [facility] eGFR by Cystatin C 51(L) >=60 ml/min/1.7 3m2 [facility] Comment: Estimated GFR calculated using the CKD-EPI Cystatin C (2012) equation. Stage ? Description ?eGFR Range ??1.......Normal or increased eGFR.......90 or Greater ??2.......Mildly decreased eGFR..........60-89 ??3.......Moderately decreased eGFR......30-59 ??4.......Severely decreased eGFR........15-29 ??5.......Kidney Failure.................Less than 15 Blood 11/22/2023 9:23 AM CDT 11/22/2023 2:05 PM CDT Zac Churchill MD LABORATORY [facility] [address] [address] * (ABNORMAL) PANEL BASIC METABOLIC (BMP) (11/22/2023 9:23 AM CDT) Sodium 136 135 - 148 mmol/L [facility] Potassium 5.1 3.5 - 5.3 mmol/L [facility] Chloride 102 92 - 108 mmol/L [facility] CO2 24 22 - 30 mmol/L [facility] AnGap 10 8 - 16 mmol/L [facility] Glucose 254(H) 70 - 100 mg/dL [facility] BUN 20 6 - 20 mg/dL [facility] Creatinine 2.00(H) 0.70 - 1.25 mg/dL [facility] Calcium 8.6 8.6 - 10.0 mg/dL [facility] eGFR (2020 CKD-EPI) 41(L) >=60 ml/min/1.7 3m2 [facility] Comment: The [...] Zac Churchill MD LABORATORY Performing Organization Address City/[facility]/ZIP Co de Phone Number [facility] [address] [address] * (ABNORMAL) CBC WITH PLATELET (11/22/2023 9:23 AM CDT) WBC 12.35(H) 4.00 - 10.00 k/cmm [facility] RBC 3.47(L) 4.60 - 6.00 m/cmm [facility] Hgb 9.8(L) 13.1 - 17.5 g/dL [facility] Hematocrit 30.8(L) 40.0 - 51.0 % [facility] MCV 88.8 80.0 - 100.0 fL [facility] MCH 28.2 25.0 - 32.0 pg [facility] MCHC 31.8 31.0 - 36.0 g/dL [facility] RDW 14.5 11.5 - 14.5 % [facility] Plt 530(H) 150 - 400 k/cmm [facility] MPV 9.3 6.5 - 12.5 fL [facility] Blood 11/22/2023 9:23 AM CDT 11/22/2023 10:28 AM CDT Zac Churchill MD LABORATORY Performing Organization Address City/[facility]/ZIP Co de Phone Number [facility] [address] [place] [address] * (ABNORMAL) POC GLUCOSE (11/22/2023 6:55 AM CDT) POC Glucose 136(H) 70 - 100 mg/dL [facility] POINT OF CARE Blood 11/22/2023 6:55 AM CDT Jessica Grullon MD LABORATORY [facility] POINT OF CARE [address] [place] [address], [place] * (ABNORMAL) POC GLUCOSE (11/21/2023 8:38 PM CDT) POC Glucose 139(H) 70 - 100 mg/dL [facility] [facility] Blood 11/21/2023 8:38 PM CDT Jessica Grullon MD LABORATORY Performing Organization Address City/[facility]/ZIP Co de Phone Number [facility] POINT [facility] [address] [place] [phone], [place] * (ABNORMAL) POC GLUCOSE (11/21/2023 4:13 PM CDT) POC Glucose 141(H) 70 - 100 mg/dL [facility] Blood 11/21/2023 4:13 PM CDT Jessica Grullon MD LABORATORY [facility] POINT OF CARE [address] [place] [phone], [place] * (ABNORMAL) POC GLUCOSE (11/21/2023 11:12 AM CDT) POC Glucose 177(H) 70 - 100 mg/dL [facility] POINT OF CARE Blood 11/21/2023 11:1 2 AM CDT Jessica Grullon MD LABORATORY Performing Organization Address City/[facility]/ZIP Co de Phone Number [facility] POINT OF CARE [address] [place] [address], * (ABNORMAL) POC GLUCOSE (11/21/2023 6:08 AM CDT) POC Glucose 131(H) 70 - 100 mg/dL [facility] - POINT OF CARE Blood 11/21/2023 6:08 AM CDT Jessica Grullon MD LABORATORY Performing Organization Address [facility] Co de Phone Number [facility] [address] [place] [address], [place] * (ABNORMAL) PANEL BASIC METABOLIC (BMP) (11/21/2023 4:52 AM CDT) CO2 27 22 - 30 mmol/L [facility] Glucose 128(H) 70 - 100 mg/dL [facility] BUN 21(H) 6 - 20 mg/dL [facility] Creatinine 2.07(H) 0.70 - 1.25 mg/dL [facility] Calcium 8.4(L) 8.6 - 10.0 mg/dL [facility] Sodium 138 135 - 148 mmol/L [facility] Potassium 4.8 3.5 - 5.3 mmol/L [facility] Chloride 103 92 - 108 mmol/L [facility] eGFR (2020 CKD-EPI) 40(L) >=60 ml/min/1.7 3m2 [facility] Comment: The estimated glomerular filtration rate (eGFR) was calculated using the CKD-EPI 2020 creatinine equation, which does not include race as a factor. This equation is validated in individuals 18 years of age and older, and eGFR is normalized to a body surface area of 1.73m^2. AnGap 8 8 - 16 mmol/L [facility] Blood 11/21/2023 4:52 AM CDT 11/21/2023 5:27 AM CDT Zac Churchill MD LABORATORY [facility] [address] [id number] * (ABNORMAL) CBC WITH PLATELET (11/21/2023 4:52 AM CDT) Pathologist [facility] WBC 11.48(H) 4.00 - 10.00 k/cmm [facility] RBC 3.21(L) 4.60 - 6.00 m/cmm [facility] Hgb 9.0(L) 13.1 - 17.5 g/dL [facility] Hematocrit 28.7(L) 40.0 - 51.0 % [facility] MCV 89.4 80.0 - 100.0 fL [facility] MCH 28.0 25.0 - 32.0 pg [facility] MCHC 31.4 31.0 - 36.0 g/dL [facility] RDW 14.6(H) 11.5 - 14.5 % [facility] Plt 510(H) 150 - 400 k/cmm [facility] MPV 9.1 6.5 - 12.5 fL [facility] Blood 11/21/2023 4:52 AM CDT 11/21/2023 5:27 AM CDT Zac Churchill MD LABORATORY [address] [address] * (ABNORMAL) POC GLUCOSE (11/20/2023 9:13 PM CDT) [facility] POC Glucose 153(H) 70 - 100 mg/dL [facility] POINT OF CARE Blood 11/20/2023 9:13 PM CDT Jessica Grullon MD LABORATORY [facility] POINT OF CARE [address] [place] [phone] [place] [address] * (ABNORMAL) POC GLUCOSE (11/20/2023 3:52 PM CDT) Pathologist [facility] POC Glucose 129(H) 70 - 100 mg/dL [facility] POINT OF CARE Blood 11/20/2023 3:52 PM CDT Jessica Grullon MD LABORATORY Performing Organization Address City/[facility]/ZIP Co de Phone Number [facility] [address] [place] [phone], * (ABNORMAL) POC GLUCOSE (11/20/2023 11:16 AM CDT) POC Glucose 165(H) 70 - 100 mg/dL [facility] Blood 11/20/2023 11:1 6 AM CDT Jessica Grullon MD LABORATORY Performing Organization Address [facility] de Phone Number [facility] [address] [place] [phone], [place] * (ABNORMAL) PANEL BASIC METABOLIC (BMP) (11/20/2023 8:18 AM CDT) Pathologist [facility] Sodium 140 135 - 148 mmol/L [facility] Potassium 4.9 3.5 - 5.3 mmol/L [facility] Chloride 105 92 - 108 mmol/L [facility] CO2 26 22 - 30 mmol/L [facility] AnGap 9 8 - 16 mmol/L [facility] Glucose 147(H) 70 - 100 mg/dL [facility] BUN 21(H) 6 - 20 mg/dL [facility] Creatinine 2.02(H) 0.70 - 1.25 mg/dL [facility] Calcium 8.4(L) 8.6 - 10.0 mg/dL [facility] eGFR (2020 CKD-EPI) 41(L) >=60 ml/min/1.7 3m2 [facility] Comment: The [...] AM CDT 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 APRN, CNP LABORATORY [facility] [address] [place] [phone] * (ABNORMAL) CBC WITH PLTS/AUTO DIFF (11/20/2023 8:18 AM CDT) WBC 10.90(H) 4.00 - 10.00 k/cmm [facility] RBC 3.17(L) 4.60 - 6.00 m/cmm [facility] Hgb 9.0(L) 13.1 - 17.5 g/dL [facility] Hematocrit 28.3(L) 40.0 - 51.0 % [facility] MCV 89.3 80.0 - 100.0 fL [facility] MCH 28.4 25.0 - 32.0 pg [facility] MCHC 31.8 31.0 - 36.0 g/dL [facility] RDW 14.3 11.5 - 14.5 % [facility] Plt 492(H) 150 - 400 k/cmm [facility] MPV 9.2 6.5 - 12.5 fL [facility] Automated Abs Neutrophil 6.51(H) 1.70 - 6.50 k/cmm [facility] Comment:Preliminary ANC, Fin al Result to Follow Abs Immature Granulocyte 0.57(H) 0.00 - 0.09 k/cmm [facility] Comment:The Immature Granulo cyte Absolute count contains metamyelocytes and myelocytes. Abs Neutrophil 6.51(H) 1.70 - 6.50 k/cmm [facility] Abs Lymphocyte 2.07 0.80 - 4.00 k/cmm [facility] Abs Monocyte 1.27(H) 0.20 - 1.00 k/cmm [facility] Abs Eosinophil 0.45 0.00 - 0.60 k/cmm [facility] Abs Basophil 0.03 0.00 - 0.20 k/cmm [facility] Blood 11/20/2023 8:18 AM CDT 11/20/2023 8:40 AM CDT 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 APRN, CNP LABORATORY [facility] [address] [place] [address] * (ABNORMAL) POC GLUCOSE (11/20/2023 8:08 AM CDT) POC Glucose 133(H) 70 - 100 mg/dL [facility] POINT OF CARE Blood 11/20/2023 8:08 AM CDT Jessica Grullon MD LABORATORY [facility] POINT OF CARE [address] [place] [phone], [place] * (ABNORMAL) POC GLUCOSE (11/20/2023 6:30 AM CDT) POC Glucose 153(H) 70 - 100 mg/dL [facility] POINT OF CARE Blood 11/20/2023 6:30 AM CDT Jessica Grullon MD LABORATORY Performing Organization Address City/[facility] Co de Phone Number [facility] PO[facility] [address] [place] [address], [place] * (ABNORMAL) POC GLUCOSE (11/19/2023 9:03 PM CDT) POC Glucose 148(H) 70 - 100 mg/dL [facility] POINT OF CARE Blood 11/19/2023 9:03 PM CDT Jessica Grullon MD LABORATORY [facility] POINT OF CARE [address] [place] [address], [place] * (ABNORMAL) POC GLUCOSE (11/19/2023 3:55 PM CDT) POC Glucose 126(H) 70 - 100 mg/dL [facility] POINT OF CARE Blood 11/19/2023 3:55 PM CDT Jessica Grullon MD LABORATORY Performing Organization Address City/[facility]/ZIP Co de Phone Number [facility] POINT OF CARE [address] [place] [phone], [place] * (ABNORMAL) POC GLUCOSE (11/19/2023 12:03 PM CDT) POC Glucose 147(H) 70 - 100 mg/dL [facility] POINT OF CARE Blood 11/19/2023 12:0 3 PM CDT Jessica Grullon MD LABORATORY Performing Organization Address City/[facility] Co de Phone Number [facility] [address] [place] [phone], [place] * (ABNORMAL) POC GLUCOSE (11/19/2023 11:07 AM CDT) POC Glucose 159(H) 70 - 100 mg/dL [facility] Blood 11/19/2023 11:0 7 AM CDT Jessica Grullon MD LABORATORY Performing Organization Address [facility] Co de Phone Number [facility] [address] [place] [phone], [place] * (ABNORMAL) POC GLUCOSE (11/19/2023 8:51 AM CDT) POC Glucose 185(H) 70 - 100 mg/dL [facility] Blood 11/19/2023 8:51 AM CDT Jessica Grullon MD LABORATORY Performing Organization Address City/[facility]/ZIP Co de Phone Number [facility] [address] [place] [phone], [place] * (ABNORMAL) PANEL BASIC METABOLIC (BMP) (11/19/2023 7:58 AM CDT) CO2 24 22 - 30 mmol/L [facility] Glucose 221(H) 70 - 100 mg/dL [facility] BUN 25(H) 6 - 20 mg/dL [facility] Creatinine 2.19(H) 0.70 - 1.25 mg/dL [facility] Calcium 7.8(L) 8.6 - 10.0 mg/dL [facility] Sodium 138 135 - 148 mmol/L [facility] Potassium 4.7 3.5 - 5.3 mmol/L [facility] Chloride 104 92 - 108 mmol/L [facility] eGFR (2020 CKD-EPI) 37(L) >=60 ml/min/1.7 3m2 [facility] Comment: The estimated glomerular filtration rate (eGFR) was calculated using the CKD-EPI 2020 creatinine equation, which does not include race as a factor. This equation is validated in individuals 18 years of age and older, and eGFR is normalized to a body surface area of 1.73m^2. AnGap 10 8 - 16 mmol/L [facility] Blood 11/19/2023 7:58 AM CDT 11/19/2023 8:34 AM CDT 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 APRN, CNP LABORATORY [facility] [address] [place] [phone] * (ABNORMAL) CBC WITH PLTS/AUTO DIFF (11/19/2023 7:58 AM CDT) WBC 10.66(H) 4.00 - 10.00 k/cmm [facility] RBC 3.14(L) 4.60 - 6.00 m/cmm [facility] Hgb 9.0(L) 13.1 - 17.5 g/dL [facility] Hematocrit 27.7(L) 40.0 - 51.0 % [facility] MCV 88.2 80.0 - 100.0 fL [facility] MCH 28.7 25.0 - 32.0 pg [facility] MCHC 32.5 31.0 - 36.0 g/dL [facility] RDW 14.3 11.5 - 14.5 % [facility] Plt 482(H) 150 - 400 k/cmm [facility] MPV 9.2 6.5 - 12.5 fL [facility] Automated Abs Neutrophil 6.41 1.70 - 6.50 k/cmm [facility] Comment:Preliminary ANC, Fin al Result to Follow Polychromasia Slight [facility] Abs Neutrophil 8.10(H) 1.70 - 6.50 k/cmm [facility] Abs Lymphocyte 1.07 0.80 - 4.00 k/cmm [facility] Abs Monocyte 0.85 0.20 - 1.00 k/cmm [facility] Abs Eosinophil 0.32 0.00 - 0.60 k/cmm [facility] Abs Basophil 0.11 0.00 - 0.20 k/cmm [facility] Abs Myelocyte 0.21(H) 0.00 - 0.00 k/cmm [facility] Blood 11/19/2023 7:58 AM CDT 11/19/2023 8:34 AM CDT 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 APRN, CNP LABORATORY Performing Organization Address [facility] de Phone Number [facility] [place] [address] * (ABNORMAL) POC GLUCOSE (11/19/2023 6:37 AM CDT) POC Glucose 212(H) 70 - 100 mg/dL [facility] POINT OF CARE Blood 11/19/2023 6:37 AM CDT Jessica Grullon MD LABORATORY Performing Organization Address [facility] de Phone Number [facility] POINT OF CARE [address] [place] [id number], [place] * POC GLUCOSE (11/18/2023 8:54 PM CDT) POC Glucose 99 70 - 100 mg/dL [facility] POINT OF CARE Blood 11/18/2023 8:54 PM CDT Jessica Grullon MD LABORATORY Performing Organization Address [facility] Co de Phone Number [facility] POINT OF CARE [address] [place] [phone], [place] * (ABNORMAL) POC GLUCOSE (11/18/2023 8:20 PM CDT) POC Glucose 69(L) 70 - 100 mg/dL [facility] POINT OF [facility] Blood 11/18/2023 8:20 PM CDT Jessica Grullon MD LABORATORY Performing Organization Address [facility] Co de Phone Number [facility] [address] [place] [phone], [place] * (ABNORMAL) POC GLUCOSE (11/18/2023 4:37 PM CDT) [facility] POC Glucose 154(H) 70 - 100 mg/dL [facility] Blood 11/18/2023 4:37 PM CDT Jessica Grullon MD LABORATORY Performing Organization Address [facility] Co de Phone Number [facility] [address] [place] [address], [place] * (ABNORMAL) POC GLUCOSE (11/18/2023 11:03 AM CDT) [facility] POC Glucose 158(H) 70 - 100 mg/dL [facility] Blood 11/18/2023 11:0 3 AM CDT Jessica Grullon MD LABORATORY Performing Organization Address [facility] Co de Phone Number [facility] [address] [place] [phone], [place] * (ABNORMAL) PANEL BASIC METABOLIC (BMP) (11/18/2023 9:02 AM CDT) CO2 24 22 - 30 mmol/L [facility] Glucose 180(H) 70 - 100 mg/dL [facility] BUN 27(H) 6 - 20 mg/dL [facility] Creatinine 2.17(H) 0.70 - 1.25 mg/dL [facility] Calcium 8.2(L) 8.6 - 10.0 mg/dL [facility] Sodium 137 135 - 148 mmol/L [facility] Potassium 4.5 3.5 - 5.3 mmol/L [facility] Chloride 104 92 - 108 mmol/L [facility] eGFR (2020 CKD-EPI) 37(L) >=60 ml/min/1.7 3m2 [facility] Comment: The estimated glomerular filtration rate (eGFR) was calculated using the CKD-EPI 2020 creatinine equation, which does not include race as a factor. This equation is validated in individuals 18 years of age and older, and eGFR is normalized to a body surface area of 1.73m^2. AnGap 9 8 - 16 mmol/L [facility] Blood 11/18/2023 9:02 AM CDT 11/18/2023 9:21 AM CDT 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 APRN, CNP LABORATORY [facility] [address] [address] * (ABNORMAL) CBC WITH PLTS/AUTO DIFF (11/18/2023 9:02 AM CDT) WBC 10.61(H) 4.00 - 10.00 k/cmm [facility] RBC 3.36(L) 4.60 - 6.00 m/cmm [facility] Hgb 9.4(L) 13.1 - 17.5 g/dL [facility] Hematocrit 29.5(L) 40.0 - 51.0 % [facility] MCV 87.8 80.0 - 100.0 fL [facility] MCH 28.0 25.0 - 32.0 pg [facility] MCHC 31.9 31.0 - 36.0 g/dL [facility] RDW 14.2 11.5 - 14.5 % [facility] Plt 495(H) 150 - 400 k/cmm [facility] MPV 9.2 6.5 - 12.5 fL [facility] Automated Abs Neutrophil 6.34 1.70 - 6.50 k/cmm [facility] Comment:Preliminary ANC, Fin al Result to Follow NUC RBC 1.0(H) 0.0 - 0.0 /100WBC [facility] Polychromasia Slight [facility] Abs Neutrophil 7.32(H) 1.70 - 6.50 k/cmm [facility] Abs Lymphocyte 2.23 0.80 - 4.00 k/cmm [facility] Abs Monocyte 0.85 0.20 - 1.00 k/cmm [facility] Abs Eosinophil 0.21 0.00 - 0.60 k/cmm [facility] Blood 11/18/2023 9:02 AM CDT 11/18/2023 9:21 AM CDT 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 APRN, CNP LABORATORY Performing Organization Address City/[facility]/ZIP Co de Phone Number [facility] [place] [address] * (ABNORMAL) POC GLUCOSE (11/18/2023 6:21 AM CDT) POC Glucose 194(H) 70 - 100 mg/dL [facility] POINT OF CARE Blood 11/18/2023 6:21 AM CDT Jessica Grullon MD LABORATORY Performing Organization Address City/[facility] Co de Phone Number [facility] POINT OF [address] * (ABNORMAL) POC GLUCOSE (11/17/2023 8:19 PM CDT) POC Glucose 143(H) 70 - 100 mg/dL [facility] POINT OF CARE Blood 11/17/2023 8:19 PM CDT Jessica Grullon MD LABORATORY Performing Organization Address City/[facility]/ZIP Co de Phone Number [facility] POINT OF [address] * (ABNORMAL) POC GLUCOSE (11/17/2023 4:40 PM CDT) POC Glucose 235(H) 70 - 100 mg/dL [facility] POINT OF CARE Blood 11/17/2023 4:40 PM CDT Jessica Grullon MD LABORATORY [facility] - POINT OF CARE [address] [place] [address], [place] * (ABNORMAL) CBC WITH PLTS/AUTO DIFF (11/17/2023 2:35 PM CDT) WBC 11.70(H) 4.00 - 10.00 k/cmm [facility] RBC 3.37(L) 4.60 - 6.00 m/cmm [facility] Hgb 9.6(L) 13.1 - 17.5 g/dL [facility] Hematocrit 29.6(L) 40.0 - 51.0 % [facility] MCV 87.8 80.0 - 100.0 fL [facility] MCH 28.5 25.0 - 32.0 pg [facility] MCHC 32.4 31.0 - 36.0 g/dL [facility] RDW 14.2 11.5 - 14.5 % [facility] Plt 466(H) 150 - 400 k/cmm [facility] MPV 9.3 6.5 - 12.5 fL [facility] Automated Abs Neutrophil 7.44(H) 1.70 - 6.50 k/cmm [facility] Comment:Preliminary ANC, Fin al Result to Follow Abs Immature Granulocyte 0.52(H) 0.00 - 0.09 k/cmm [facility] Comment:The Immature Granulo cyte Absolute count contains metamyelocytes and myelocytes. Abs Neutrophil 7.44(H) 1.70 - 6.50 k/cmm [facility] Abs Lymphocyte 1.96 0.80 - 4.00 k/cmm [facility] Abs Monocyte 1.45(H) 0.20 - 1.00 k/cmm [facility] Abs Eosinophil 0.27 0.00 - 0.60 k/cmm [facility] Abs Basophil 0.06 0.00 - 0.20 k/cmm [facility] Polychromasia Slight [facility] Blood 11/17/2023 2:35 PM CDT 11/17/2023 2:57 PM CDT Scar Leyva MD LABORATORY Performing Organization Address [facility] Co de Phone Number [facility] [address] [id number] * (ABNORMAL) PANEL BASIC METABOLIC (BMP) (11/17/2023 2:35 PM CDT) CO2 21(L) 22 - 30 mmol/L [facility] Glucose 252(H) 70 - 100 mg/dL [facility] BUN 30(H) 6 - 20 mg/dL [facility] Creatinine 2.27(H) 0.70 - 1.25 mg/dL [facility] Calcium 8.2(L) 8.6 - 10.0 mg/dL [facility] Sodium 137 135 - 148 mmol/L [facility] Potassium 4.3 3.5 - 5.3 mmol/L [facility] Chloride 104 92 - 108 mmol/L [facility] eGFR (2020 CKD-EPI) 35(L) >=60 ml/min/1.7 3m2 [facility] Comment: The estimated glomerular filtration rate (eGFR) was calculated using the CKD-EPI 2020 creatinine equation, which does not include race as a factor. This equation is validated in individuals 18 years of age and older, and eGFR is normalized to a body surface area of 1.73m^2. AnGap 12 8 - 16 mmol/L [facility] Blood 11/17/2023 2:35 PM CDT 11/17/2023 2:57 PM CDT Scar Leyva MD LABORATORY Performing Organization Address [facility]/ZIP Co de Phone Number [facility] [address] [id number] * ANTI XA ASSAY LMW HEPARIN (11/17/2023 11:47 AM CDT) Anti XA LMW <0.04 IU/mL [facility] Comment: Anti Xa Assay LMW Heparin Therapeutic Ranges: 0.4-1.1 IU/mL for twice daily 1.0-2.0 IU/mL for once daily Blood 11/17/2023 11:4 7 AM CDT 11/17/2023 12:01 PM CDT Zac Churchill MD LABORATORY [facility] [address] [place] [phone] * (ABNORMAL) POC GLUCOSE (11/17/2023 11:25 AM CDT) POC Glucose 190(H) 70 - 100 mg/dL [facility] Blood 11/17/2023 11:2 5 AM CDT Jessica Grullon MD LABORATORY Performing Organization Address [facility] Co de Phone Number [facility] [address] [place] [phone], * XR FOOT LEFT 3 V AP/OBL/LAT* [...] POC Glucose 176(H) 70 - 100 mg/dL [facility] Blood 11/17/2023 10:0 1 AM CDT Jessica Grullon MD LABORATORY [facility] [address] [place] [address], * (ABNORMAL) TISSUE CULTURE:INCLUDES GRAM STAIN (11/17/2023 9:35 AM CDT) Final Report Positive Culture Previous positive called. Rare METHICILLIN RESISTANT Staphylococcus aureus (MRSA) isolated. 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 One colony Staphylococcus lugdunensis isolated. (POS) [facility] Organism METHICILLIN RESISTANT STAPHYLOCOCCUS AUREUS (MRSA)(POS) [facility] Organism STAPHYLOCOCCUS LUGDUNENSIS(POS) [facility] Gram Stain Report Few WBC's seen. No organisms seen. Gram stain electronically reported to and acknowledged by: Che Palomo MD for Podiatric Surgery on 11/17/2023 11:56:22 by Silver Luna MLS [facility] Tissue TOE [...] [facility] Performing Organization Address [facility] Co de Phone Number [facility] [address] [address] * FUNGUS CULTURE:INCLUDES SUHAS (11/17/2023 9:35 AM CDT) Final Report No fungus isolated. [facility] SUHAS Prep No fungal elements seen. [facility] Tissue TOE STRUCTURE / Unknown 11/17/2023 9:35 AM CDT Che Brian Palomo [facility] MICROBIOLOGY Performing Organization Address [facility] Co de Phone Number [facility] [address] [address] * ANAEROBE CULTURE (11/17/2023 9:35 AM CDT) Final Report No anaerobes isolated. [facility] Tissue TOE STRUCTURE / Unknown 11/17/2023 9:35 AM CDT Che Palomo DPM LAB MICROBIOLOGY Performing Organization Address City/[facility] Co de Phone Number [facility] [address] [address] * AFB CULTURE:INCLUDES AFB SMEAR (11/17/2023 9:35 AM CDT) Final Report No acid fast bacilli isolated. [facility] Acid Fast Stain No acid fast bacilli seen. [facility] Tissue TOE STRUCTURE / Unknown 11/17/2023 9:35 AM CDT Che Palomo [facility] MICROBIOLOGY Performing Organization Address [facility] de Phone Number [facility] [address] [address] * M TUBERCULOSIS AMPLIFICATION (11/17/2023 9:32 AM CDT) Final Report M. tuberculosis complex DNA not detected. [facility] Tissue TOE STRUCTURE / Unknown 11/17/2023 9:32 AM CDT 11/18/2023 9:56 AM CDT Comment:1: Left hallux soft tissue dirty Narrative [facility] - 11/18/2023 2:41 PM CDT This assay uses PCR nucleic acid amplification to detect Mycobacterium tuberculosis complex DNA. ??This test was developed and its performance characteristics determined by [facility]. ??It has not been cleared or approved by the U.S. Food and Drug Administration. ??FDA does not require this test to go through premarket FDA review. ??This test is used for clinical purposes. ??It should not be regarded as investigational or for research. ??[facility] Laboratory is certified under the Clinical Laboratory Improvement Amendments of 1988 (CLIA) as qualified to perform high complexity clinical laboratory testing. Che Jonbitt [facility] MICROBIOLOGY Performing Organization Address [facility] de Phone Number [facility] [address] [address] * (ABNORMAL) TISSUE CULTURE:INCLUDES GRAM STAIN (11/17/2023 9:32 AM CDT) Final Report Positive Culture Rare METHICILLIN RESISTANT Staphylococcus aureus (MRSA) isolated. 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 Rare Group B beta hemolytic Streptococcus isolated. Pseudomonas aeruginosa isolated in broth only. Results electronically reported to and acknowledged by: Paula Vazquez MD, in Surgery [place], at ?? 11/23/2023 07:49:11 by Pam Alvarado MLS. (POS) [facility] Organism METHICILLIN RESISTANT STAPHYLOCOCCUS AUREUS (MRSA)(POS) [facility] Organism GROUP B BETA HEMOLYTIC STREPTOCOCCUS(POS) [facility] Organism PSEUDOMONAS AERUGINOSA(POS) [facility] Gram Stain Report Positive Gram stain Gram stain electronically reported to and acknowledged by: Che Zheng MD for Podiatric Surgery on 11/17/2023 11:55:10 by Silver Luna MLS Rare WBC's seen. Rare gram positive cocci clusters. (POS) [facility] Tissue TOE [...] Che Palomo [facility] MICROBIOLOGY [facility] [address] [place] [id number] * FUNGUS CULTURE:INCLUDES SUHAS (11/17/2023 9:32 AM CDT) Final Report No fungus isolated. [facility] SUHAS Prep No fungal elements seen. [facility] Tissue TOE STRUCTURE / Unknown 11/17/2023 9:32 AM CDT Che Palomo DP LAB MICROBIOLOGY Performing Organization Address [facility] de Phone Number [facility] [address] [address] * (ABNORMAL) ANAEROBE CULTURE (11/17/2023 9:32 AM CDT) Final Report Positive Culture Rare Veillonella parvula group isolated. Rare Actinomyces europaeus isolated. (POS) [facility] Organism VEILLONELLA PARVULA GROUP(POS) [facility] Organism ACTINOMYCES EUROPAEUS(POS) [facility] Tissue TOE STRUCTURE / Unknown 11/17/2023 9:32 AM CDT Che Palomo DP LAB MICROBIOLOGY Performing Organization Address [facility] de Phone Number [facility] [address] [address] * AFB CULTURE:INCLUDES AFB SMEAR (11/17/2023 9:32 AM CDT) Final Report No acid fast bacilli isolated. [facility] Acid Fast Stain No acid fast bacilli seen. [facility] Tissue TOE STRUCTURE / Unknown 11/17/2023 9:32 AM CDT Che Palomo DP LAB MICROBIOLOGY Performing Organization Address [facility] de Phone Number [facility] [address] [address] * SURGICAL PATHOLOGY (11/17/2023 9:31 AM CDT) SURG PATH FINAL ?Surgical Pathology Report Collection Date: ?11/17/2023 09:31 CDT ?Ordering Physician: ? CHE PALOMO Received Date: ?11/17/2023 09:49 CDT ?Accession Number: ? [id number] ? Surgical Pathology Final Report Specimen Type: [...] underlying soft tissue with moderate osseous softening. Office Support Specialist sections are submitted on decalcification as follows: [...] Michael, M.D. Attending Pathologist. DDB/DDBeny 11.17.2023 10:26 [facility] AP Specimen FOOT STRUCTURE / Unknown 11/17/2023 9:31 AM CDT Comment:OR: Routine gross an d microscopic examination Tissue: Left Hallux Site: left foot Additional clinical information: Che Palomo DPM LAB PATHOLOGY Performing Organization Address [facility] Co de Phone Number [facility] [address] [address] * (ABNORMAL) POC GLUCOSE (11/17/2023 9:14 AM CDT) POC Glucose 169(H) 70 - 100 mg/dL [facility] POINT OF CARE Blood 11/17/2023 9:14 AM CDT Jessica Grullon MD LABORATORY Performing Organization Address [facility] de Phone Number [facility] POINT OF CARE [address] [place] [address], [place] * ULT ARTERIAL LOWER EXTREMITY LEFT [...] POC Glucose 205(H) 70 - 100 mg/dL [facility] - POINT OF CARE Blood 11/17/2023 6:07 AM CDT Jessica Grullon MD LABORATORY Performing Organization Address City/[facility]/ZIP Co de Phone Number [facility] POINT OF CARE [address] [place] [address], [place] * (ABNORMAL) POC GLUCOSE (11/16/2023 8:46 PM CDT) POC Glucose 141(H) 70 - 100 mg/dL [facility] POINT OF CARE Blood 11/16/2023 8:46 PM CDT Jessica Grullon MD LABORATORY Performing Organization Address City/[facility] Co de Phone Number [facility] POINT OF [facility] [address] [place] [address], [place] * XR FOOT LEFT 3 V [...] POC Glucose 148(H) 70 - 100 mg/dL [facility] - POINT OF CARE Blood 11/16/2023 4:14 PM CDT Jessica Grullon MD LABORATORY [facility] POINT OF CARE [address] [place] [address], [place] * (ABNORMAL) POC GLUCOSE (11/16/2023 10:55 AM CDT) POC Glucose 203(H) 70 - 100 mg/dL [facility] POINT OF CARE Blood 11/16/2023 10:5 5 AM CDT Jessica Grullon MD LABORATORY [facility] POINT OF CARE [address] [place] [phone], [place] * (ABNORMAL) CBC WITH PLATELET (11/16/2023 8:45 AM CDT) WBC 13.08(H) 4.00 - 10.00 k/cmm [facility] RBC 3.38(L) 4.60 - 6.00 m/cmm [facility] Hgb 9.6(L) 13.1 - 17.5 g/dL [facility] Hematocrit 28.9(L) 40.0 - 51.0 % [facility] MCV 85.5 80.0 - 100.0 fL [facility] MCH 28.4 25.0 - 32.0 pg [facility] MCHC 33.2 31.0 - 36.0 g/dL [facility] RDW 13.4 11.5 - 14.5 % [facility] Plt 475(H) 150 - 400 k/cmm [facility] MPV 9.5 6.5 - 12.5 fL [facility] Blood 11/16/2023 8:45 AM CDT 11/16/2023 8:58 AM CDT 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 APRN, CNP LABORATORY [facility] [address] [address] * (ABNORMAL) PANEL BASIC METABOLIC (BMP) (11/16/2023 8:45 AM CDT) CO2 21(L) 22 - 30 mmol/L [facility] Glucose 261(H) 70 - 100 mg/dL [facility] BUN 35(H) 6 - 20 mg/dL [facility] Creatinine 2.67(H) 0.70 - 1.25 mg/dL [facility] Calcium 8.3(L) 8.6 - 10.0 mg/dL [facility] Sodium 139 135 - 148 mmol/L [facility] Potassium 4.4 3.5 - 5.3 mmol/L [facility] Chloride 106 92 - 108 mmol/L [facility] eGFR (2020 CKD-EPI) 29(L) >=60 ml/min/1.7 3m2 [facility] Comment: The estimated glomerular filtration rate (eGFR) was calculated using the CKD-EPI 2020 creatinine equation, which does not include race as a factor. This equation is validated in individuals 18 years of age and older, and eGFR is normalized to a body surface area of 1.73m^2. AnGap 12 8 - 16 mmol/L [facility] Blood 11/16/2023 8:45 AM CDT 11/16/2023 8:57 AM CDT 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 APRN, CNP LABORATORY [facility] [address] [place] [phone] * (ABNORMAL) POC GLUCOSE (11/16/2023 7:37 AM CDT) POC Glucose 180(H) 70 - 100 mg/dL [facility] POINT OF CARE Blood 11/16/2023 7:37 AM CDT Jessica Grullon MD LABORATORY Performing Organization Address City/[facility]/ZIP Co de Phone Number [address] [address], [place] * (ABNORMAL) POC GLUCOSE (11/15/2023 9:23 PM CDT) POC Glucose 144(H) 70 - 100 mg/dL [facility] Blood 11/15/2023 9:23 PM CDT Jessica Grullon MD LABORATORY Performing Organization Address City/[facility] Co de Phone Number [address] [address], [place] * (ABNORMAL) POC GLUCOSE (11/15/2023 4:18 PM CDT) POC Glucose 159(H) 70 - 100 mg/dL [facility] POINT OF [facility] Blood 11/15/2023 4:18 PM CDT Jessica Grullon MD LABORATORY [facility] POINT [address] [address], [place] * (ABNORMAL) POC GLUCOSE (11/15/2023 11:19 AM CDT) POC Glucose 221(H) 70 - 100 mg/dL [facility] POINT OF CARE Blood 11/15/2023 11:1 9 AM CDT Jessica Grullon MD LABORATORY Performing Organization Address [facility]/ZIP Co de Phone Number [facility] POINT OF CARE [address] [place] [phone], * (ABNORMAL) PANEL BASIC METABOLIC (BMP) (11/15/2023 7:39 AM CDT) CO2 21(L) 22 - 30 mmol/L [facility] Glucose 176(H) 70 - 100 mg/dL [facility] BUN 38(H) 6 - 20 mg/dL [facility] Creatinine 2.86(H) 0.70 - 1.25 mg/dL [facility] Calcium 7.6(L) 8.6 - 10.0 mg/dL [facility] Sodium 136 135 - 148 mmol/L [facility] Potassium 4.2 3.5 - 5.3 mmol/L [facility] Chloride 102 92 - 108 mmol/L [facility] eGFR (2020 CKD-EPI) 27(L) >=60 ml/min/1.7 3m2 [facility] Comment: The estimated glomerular filtration rate (eGFR) was calculated using the CKD-EPI 2020 creatinine equation, which does not include race as a factor. This equation is validated in individuals 18 years of age and older, and eGFR is normalized to a body surface area of 1.73m^2. AnGap 13 8 - 16 mmol/L [facility] Blood 11/15/2023 7:39 AM CDT 11/15/2023 7:58 AM CDT Shani Shaw MD LABORATORY Performing Organization Address City/[facility]/ZIP Co de Phone Number [facility] [address] [address] * (ABNORMAL) CREATININE, SERUM (11/15/2023 7:39 AM CDT) Creatinine 2.83(H) 0.70 - 1.25 mg/dL [facility] eGFR (2020 CKD-EPI) 27(L) >=60 ml/min/1.7 3m2 [facility] Comment: The [...] Shani Shaw MD LABORATORY Performing Organization Address City/[facility]/ZIP Co de Phone Number [facility] [address] [address] * HEPATITIS C ANTIBODY WITH CONDITIONAL PCR (11/15/2023 7:39 AM CDT) Pathologist [facility] Hep C Lilly Nonreactive Nonreactive [facility] Comment:Performance characte ristics have not been established with this test on patients less than 10 years of age. Blood 11/15/2023 7:39 AM CDT 11/15/2023 7:58 AM CDT Zac Churchill MD LABORATORY Performing Organization Address City/[facility]/ZIP Co de Phone Number [facility] [address] [address] * HIV COMBO (11/15/2023 7:39 AM CDT) [facility] HIV Antigen-Antibody Nonreactive Nonreactive [facility] Comment:Performance characte ristics have not been established with this test on patients less than 2 years of age. Blood 11/15/2023 7:39 AM CDT 11/15/2023 7:58 AM CDT Zac Churchill MD LABORATORY [facility] [address] [address] * (ABNORMAL) POC GLUCOSE (11/15/2023 6:16 AM CDT) POC Glucose 154(H) 70 - 100 mg/dL [facility] POINT OF CARE Blood 11/15/2023 6:16 AM CDT Jessica Grullon MD LABORATORY Performing Organization Address [facility] Co de Phone Number [facility] POINT [facility] [address] [place] [address], [place] * (ABNORMAL) POC GLUCOSE (11/14/2023 8:34 PM CDT) POC Glucose 159(H) 70 - 100 mg/dL [facility] POINT OF CARE Blood 11/14/2023 8:34 PM CDT Jessica Grullon MD LABORATORY Performing Organization Address [facility] de Phone Number [facility] [address] [phone], [place] * (ABNORMAL) POC GLUCOSE (11/14/2023 4:36 PM CDT) Pathologist [facility] POC Glucose 182(H) 70 - 100 mg/dL [facility] POINT OF [facility] Blood 11/14/2023 4:36 PM CDT Jessica Grullon MD LABORATORY Performing Organization Address [facility] de Phone Number [facility] [address] [place] [address], [place] * (ABNORMAL) PROTEIN TO CREAT RATIO,URINE (11/14/2023 9:58 AM CDT) TPU 22(H) 0 - 11 mg/dL [facility] Creat Urine 89 30 - 125 mg/dL [facility] Protein to Creat Ratio, Ur 0.25(H) 0.00 - 0.06 mg/mg [facility] Urine 11/14/2023 9:58 AM CDT 11/14/2023 10:06 AM CDT Zac Churchill MD LABORATORY Performing Organization Address [facility] Co de Phone Number [facility] [address] [address] * (ABNORMAL) URINALYSIS,TOTAL (11/14/2023 9:58 AM CDT) Color YELLOW YELLOW [facility] Appearance CLEAR CLEAR [facility] Urine Glucose 500(A) NEGATIVE mg/dL [facility] Bili UA NEGATIVE NEGATIVE [facility] Ketones NEGATIVE NEGATIVE [facility] Specific Alston 1.012 1.003 - 1.030 [facility] Blood Ur NEGATIVE Neg-Trace [facility] PH Urine 5.5 5.0 - 7.0 [facility] Protein Ur TRACE Neg-Trace [facility] Urobilinogen NORMAL NORMAL EU/dL [facility] Nitrite Ur NEGATIVE NEGATIVE [facility] Leuk Est NEGATIVE Neg-Trace [facility] WBC Ur 0-5 0 - 5 perHPF [facility] RBC Ur 0-3 0 - 3 perHPF [facility] Mucus 1+ perLPF [facility] Urinalysis Performed at: [facility] Urine 11/14/2023 9:58 AM CDT 11/14/2023 10:06 AM CDT Zac Churchill MD LABORATORY Performing Organization Address [facility] Co de Phone Number [facility] [address] [address] * (ABNORMAL) POC GLUCOSE (11/14/2023 6:14 AM CDT) [facility] POC Glucose 171(H) 70 - 100 mg/dL [facility] POINT OF CARE Blood 11/14/2023 6:14 AM CDT Jessica Grullon MD LABORATORY Performing Organization Address City/[facility]/ZIP Co de Phone Number [facility] POINT OF CARE [address] [place] [phone], * VANCOMYCIN LEVEL (11/14/2023 5:30 AM CDT) Pathologist [facility] Vancomycin 19.9 mcg/mL [facility] Comment:Expected Range (Trou gh): 10-20 mcg/ml Blood 11/14/2023 5:30 AM CDT 11/14/2023 5:56 AM CDT Zac Churchill MD LABORATORY [facility] [address] [address] * (ABNORMAL) CYSTATIN C (11/14/2023 5:30 AM CDT) Cystatin C 1.78(H) 0.61 - 0.95 mg/L [facility] eGFR by Cystatin C 38(L) >=60 ml/min/1.7 3m2 [facility] Comment: Estimated GFR calculated using the CKD-EPI Cystatin C (2012) equation. Stage ? Description ?eGFR Range ??1.......Normal or increased eGFR.......90 or Greater ??2.......Mildly decreased eGFR..........60-89 ??3.......Moderately decreased eGFR......30-59 ??4.......Severely decreased eGFR........15-29 ??5.......Kidney Failure.................Less than 15 Blood 11/14/2023 5:30 AM CDT 11/14/2023 5:56 AM CDT Zac Churchill MD LABORATORY [facility] [address] [address] * PHOSPHORUS (11/14/2023 5:30 AM CDT) Phosphorus 4.3 2.5 - 4.5 mg/dL [facility] Blood 11/14/2023 5:30 AM CDT 11/14/2023 5:56 AM CDT Zac Churchill MD LABORATORY Performing Organization Address [facility] Co de Phone Number [facility] [address] [address] * (ABNORMAL) PANEL BASIC METABOLIC (BMP) (11/14/2023 5:30 AM CDT) Sodium 136 135 - 148 mmol/L [facility] Potassium 4.1 3.5 - 5.3 mmol/L [facility] Chloride 103 92 - 108 mmol/L [facility] CO2 24 22 - 30 mmol/L [facility] AnGap 9 8 - 16 mmol/L [facility] Glucose 194(H) 70 - 100 mg/dL [facility] BUN 40(H) 6 - 20 mg/dL [facility] Creatinine 3.21(H) 0.70 - 1.25 mg/dL [facility] Calcium 8.2(L) 8.6 - 10.0 mg/dL [facility] eGFR (2020 CKD-EPI) 23(L) >=60 ml/min/1.7 3m2 [facility] Comment: The [...] Zac Churchill MD LABORATORY Performing Organization Address City/[facility] Co de Phone Number [facility] [address] [address] * MAGNESIUM (11/14/2023 5:30 AM CDT) Magnesium 2.4 1.6 - 2.6 mg/dL [facility] Blood 11/14/2023 5:30 AM CDT 11/14/2023 5:56 AM CDT Zac Churchill MD LABORATORY [facility] [address] [address] * (ABNORMAL) CBC WITH PLATELET (11/14/2023 5:30 AM CDT) [facility] WBC 11.96(H) 4.00 - 10.00 k/cmm [facility] RBC 3.21(L) 4.60 - 6.00 m/cmm [facility] Hgb 9.1(L) 13.1 - 17.5 g/dL [facility] Hematocrit 28.5(L) 40.0 - 51.0 % [facility] MCV 88.8 80.0 - 100.0 fL [facility] MCH 28.3 25.0 - 32.0 pg [facility] MCHC 31.9 31.0 - 36.0 g/dL [facility] RDW 13.4 11.5 - 14.5 % [facility] Plt 372 150 - 400 k/cmm [facility] MPV 9.8 6.5 - 12.5 fL [facility] Blood 11/14/2023 5:30 AM CDT 11/14/2023 5:54 AM CDT Zac Churcihll MD LABORATORY Performing Organization Address City/[facility]/ZIP Co de Phone Number [address] [address] * (ABNORMAL) POC GLUCOSE (11/13/2023 9:00 PM CDT) Pathologist [facility] POC Glucose 206(H) 70 - 100 mg/dL [facility] POINT OF CARE Blood 11/13/2023 9:00 PM CDT Jessica Grullon MD LABORATORY [facility] POINT OF CARE [address] [place] [address] * (ABNORMAL) POC GLUCOSE (11/13/2023 4:44 PM CDT) Pathologist [facility] POC Glucose 181(H) 70 - 100 mg/dL [facility] POINT OF CARE Blood 11/13/2023 4:44 PM CDT Jessica Grullon MD LABORATORY Performing Organization Address City/[facility] Co de Phone Number [facility] POINT OF [address] [address], [place] * (ABNORMAL) POC GLUCOSE (11/13/2023 10:56 AM CDT) POC Glucose 170(H) 70 - 100 mg/dL [facility] POINT OF [facility] Blood 11/13/2023 10:5 6 AM CDT Jessica Grullon MD LABORATORY Performing Organization Address [facility] Co de Phone Number [facility] POINT OF [address] [address], [place] * URINE CHLAMYDIA AND NEISSERIAE GONORRHOEAE AMPLIFICATION (11/13/2023 10:45 AM CDT) Pathologist [facility] Chlamydia Amplification - Urine Negative Negative [facility] Comment:Test performed by tr anscription mediated amplification and is FDA approved for genital and urine specimens. N. Gonorrhea Amplification - Urine Negative Negative [facility] Comment:Test performed by tr anscription mediated amplification and is FDA approved for genital and urine specimens. Urine 11/13/2023 10:4 5 AM CDT 11/13/2023 3:03 PM CDT Narrative [facility] - 11/15/2023 12:29 PM CDT For Urines, use first void. Zac Churchill MD LABORATORY Performing Organization Address City/[facility] Co de Phone Number [facility] [address] [address] * HEPATITIS B SURFACE ANTIGEN (11/13/2023 10:20 AM CDT) HBV Surface Ag Nonreactive Nonreactive [facility] Comment: Testing performed at: [facility] [address] [address] Blood 11/13/2023 10:2 0 AM CDT 11/13/2023 10:27 AM CDT Zac Churchill MD LABORATORY Performing Organization Address [facility] [place] [address] * HEPATITIS B SURFACE ANTIBODY (11/13/2023 10:20 AM CDT) [facility] HBsAb Quant <3.31 mIU/ml [facility] Comment:The Hepatitis B Surf gabriella Antibody quantitation is less than 8.00 mIU/mL. There is no evidence of an antibody response to a hepatitis B vaccination or recovery from a hepatitis B infection. This patient is presumed non-immune to hepatitis B. HBsAb Interpretation Nonreactive [facility] Blood 11/13/2023 10:2 0 AM CDT 11/13/2023 10:27 AM CDT Zac Churchill MD LABORATORY Performing Organization Address [facility] de Phone Number [facility] [address] [address] * (ABNORMAL) POC GLUCOSE (11/13/2023 6:08 AM CDT) [facility] POC Glucose 154(H) 70 - 100 mg/dL [facility] POINT OF CARE Blood 11/13/2023 6:08 AM CDT Jessica Grullon MD LABORATORY Performing Organization Address [facility] de Phone Number [facility] POINT OF CARE [address] [place] [address] * (ABNORMAL) CYSTATIN C (11/13/2023 5:18 AM CDT) [facility] eGFR by Cystatin C 31(L) >=60 ml/min/1.7 3m2 [facility] Comment: Estimated GFR calculated using the CKD-EPI Cystatin C (2012) equation. Stage ? Description ?eGFR Range ??1.......Normal or increased eGFR.......90 or Greater ??2.......Mildly decreased eGFR..........60-89 ??3.......Moderately decreased eGFR......30-59 ??4.......Severely decreased eGFR........15-29 ??5.......Kidney Failure.................Less than 15 Cystatin C 2.11(H) 0.61 - 0.95 mg/L [facility] Blood 11/13/2023 5:18 AM CDT 11/13/2023 5:47 AM CDT Zac Churchill MD LABORATORY Performing Organization Address [facility] de Phone Number [facility] [address] [address] * VANCOMYCIN LEVEL (11/13/2023 5:18 AM CDT) Vancomycin 35.4 mcg/mL [facility] Comment:Expected Range (Trou gh): 10-20 mcg/ml Blood 11/13/2023 5:18 AM CDT 11/13/2023 5:47 AM CDT Zac Churchill MD LABORATORY Performing Organization Address [facility] de Phone Number [facility] [address] [address] * (ABNORMAL) PHOSPHORUS (11/13/2023 5:18 AM CDT) Phosphorus 5.2(H) 2.5 - 4.5 mg/dL [facility] Blood 11/13/2023 5:18 AM CDT 11/13/2023 5:47 AM CDT Zac Churchill MD LABORATORY Performing Organization Address [facility] Co de Phone Number [facility] [address] [address] * (ABNORMAL) PANEL BASIC METABOLIC (BMP) (11/13/2023 5:18 AM CDT) AnGap 12 8 - 16 mmol/L [facility] Sodium 137 135 - 148 mmol/L [facility] Chloride 103 92 - 108 mmol/L [facility] BUN 37(H) 6 - 20 mg/dL [facility] Calcium 7.8(L) 8.6 - 10.0 mg/dL [facility] CO2 22 22 - 30 mmol/L [facility] Glucose 168(H) 70 - 100 mg/dL [facility] Creatinine 3.04(H) 0.70 - 1.25 mg/dL [facility] Potassium 4.4 3.5 - 5.3 mmol/L [facility] eGFR (2020 CKD-EPI) 25(L) >=60 ml/min/1.7 3m2 [facility] Comment: The [...] Zac Churchill MD LABORATORY Performing Organization Address City/[facility]/ZIP Co de Phone Number [facility] [address] [address] * MAGNESIUM (11/13/2023 5:18 AM CDT) Magnesium 2.3 1.6 - 2.6 mg/dL [facility] Blood 11/13/2023 5:18 AM CDT 11/13/2023 5:47 AM CDT Zac Churchill MD LABORATORY [facility] [address] [address] * (ABNORMAL) CBC WITH PLATELET (11/13/2023 5:18 AM CDT) [facility] WBC 13.27(H) 4.00 - 10.00 k/cmm [facility] RBC 3.28(L) 4.60 - 6.00 m/cmm [facility] Hgb 9.2(L) 13.1 - 17.5 g/dL [facility] Hematocrit 30.0(L) 40.0 - 51.0 % [facility] MCV 91.5 80.0 - 100.0 fL [facility] MCH 28.0 25.0 - 32.0 pg [facility] MCHC 30.7(L) 31.0 - 36.0 g/dL [facility] RDW 13.5 11.5 - 14.5 % [facility] Plt 317 150 - 400 k/cmm [facility] MPV 10.1 6.5 - 12.5 fL [facility] Blood 11/13/2023 5:18 AM CDT 11/13/2023 5:47 AM CDT Zac Churchill MD LABORATORY Performing Organization Address City/[facility]/ZIP Co de Phone Number [facility] [place] [address] * RPR SYPHILIS SCREEN (11/12/2023 11:10 PM CDT) [facility] RPR Screen Non-Reactive Non-Reacti ve [facility] RPR Titer Not Reflexed [facility] Blood 11/12/2023 11:1 0 PM CDT 11/12/2023 11:40 PM CDT Zac Churchill MD LABORATORY Performing Organization Address [facility]/ZIP Co de Phone Number [facility] [place] [address] * (ABNORMAL) POC GLUCOSE (11/12/2023 8:47 PM CDT) [facility] POC Glucose 196(H) 70 - 100 mg/dL [facility] C[facility] Blood 11/12/2023 8:47 PM CDT Jessica Grullon MD LABORATORY Performing Organization Address [facility] Co de Phone Number [facility] POINT OF CARE [address] [place] [id number] [place] [address] * (ABNORMAL) POC GLUCOSE (11/12/2023 4:41 PM CDT) [facility] POC Glucose 172(H) 70 - 100 mg/dL [facility] Blood 11/12/2023 4:41 PM CDT Jessica Grullon MD LABORATORY Performing Organization Address [facility] de Phone Number [facility] POINT OF CARE [address] [place] [address] * VANCOMYCIN LEVEL (11/12/2023 1:22 PM CDT) Pathologist [facility] Vancomycin 47.5 mcg/mL [facility] Comment:Expected Range (Trou gh): 10-20 mcg/ml Blood 11/12/2023 1:22 PM CDT 11/12/2023 1:34 PM CDT Narrative [facility] - 11/12/2023 2:28 PM CDT Peak or trough:->Trough Zac Churchill MD LABORATORY Performing Organization Address [facility] Co de Phone Number [facility] [address] [place] [address] * (ABNORMAL) CYSTATIN C (11/12/2023 11:36 AM CDT) [facility] Cystatin C 2.20(H) 0.61 - 0.95 mg/L [facility] eGFR by Cystatin C 29(L) >=60 ml/min/1.7 3m2 [facility] Comment: Estimated GFR calculated using the CKD-EPI Cystatin C (2012) equation. Stage ? Description ?eGFR Range ??1.......Normal or increased eGFR.......90 or Greater ??2.......Mildly decreased eGFR..........60-89 ??3.......Moderately decreased eGFR......30-59 ??4.......Severely decreased eGFR........15-29 ??5.......Kidney Failure.................Less than 15 Blood 11/12/2023 11:3 6 AM CDT 11/12/2023 2:53 PM CDT Zac Churchill MD LABORATORY Performing Organization Address [facility] Co de Phone Number [facility] [place] [phone] * (ABNORMAL) PHOSPHORUS (11/12/2023 11:36 AM CDT) Phosphorus 5.8(H) 2.5 - 4.5 mg/dL [facility] Blood 11/12/2023 11:3 6 AM CDT 11/12/2023 11:49 AM CDT Zac Churchill MD LABORATORY Performing Organization Address [facility] de Phone Number [facility] [place] [phone] * (ABNORMAL) PANEL BASIC METABOLIC (BMP) (11/12/2023 11:36 AM CDT) Sodium 137 135 - 148 mmol/L [facility] Potassium 4.9 3.5 - 5.3 mmol/L [facility] Chloride 104 92 - 108 mmol/L [facility] CO2 23 22 - 30 mmol/L [facility] AnGap 10 8 - 16 mmol/L [facility] Glucose 160(H) 70 - 100 mg/dL [facility] BUN 29(H) 6 - 20 mg/dL [facility] Creatinine 2.24(H) 0.70 - 1.25 mg/dL [facility] Calcium 7.8(L) 8.6 - 10.0 mg/dL [facility] eGFR (2020 CKD-EPI) 36(L) >=60 ml/min/1.7 3m2 [facility] Comment: The [...] Zac Churchill MD LABORATORY Performing Organization Address [facility] de Phone Number [facility] [address] [address] * MAGNESIUM (11/12/2023 11:36 AM CDT) Magnesium 2.3 1.6 - 2.6 mg/dL [facility] Blood 11/12/2023 11:3 6 AM CDT 11/12/2023 11:49 AM CDT Zac Churchill MD LABORATORY Performing Organization Address [facility] de Phone Number [facility] [address] [address] * (ABNORMAL) CBC WITH PLATELET (11/12/2023 11:36 AM CDT) WBC 17.87(H) 4.00 - 10.00 k/cmm [facility] RBC 3.40(L) 4.60 - 6.00 m/cmm [facility] Hgb 9.6(L) 13.1 - 17.5 g/dL [facility] Hematocrit 31.1(L) 40.0 - 51.0 % [facility] MCV 91.5 80.0 - 100.0 fL [facility] MCH 28.2 25.0 - 32.0 pg [facility] MCHC 30.9(L) 31.0 - 36.0 g/dL [facility] RDW 13.6 11.5 - 14.5 % [facility] Plt 287 150 - 400 k/cmm [facility] MPV 10.5 6.5 - 12.5 fL [facility] Blood 11/12/2023 11:3 6 AM CDT 11/12/2023 11:48 AM CDT Zac Churchill MD LABORATORY [facility] [address] [place] [address] * (ABNORMAL) POC GLUCOSE (11/12/2023 11:05 AM CDT) POC Glucose 147(H) 70 - 100 mg/dL [facility] POINT OF CARE Blood 11/12/2023 11:0 5 AM CDT Jessica Grullon MD LABORATORY Performing Organization Address City/[facility]/[place] [address], [place] * (ABNORMAL) POC GLUCOSE (11/12/2023 10:09 AM CDT) POC Glucose 163(H) 70 - 100 mg/dL [facility] Blood 11/12/2023 10:0 9 AM CDT Jessica Grullon MD LABORATORY Performing Organization Address City/[facility] Co de Phone Number [place] [phone], [place] * (ABNORMAL) POC GLUCOSE (11/12/2023 9:04 AM CDT) POC Glucose 146(H) 70 - 100 mg/dL [facility] POINT OF [facility] Blood 11/12/2023 9:04 AM CDT Jessica Grullon MD LABORATORY Performing Organization Address City/[facility]/ZIP Co de Phone Number [facility] [address] [place], [place] [address], [place] * (ABNORMAL) POC GLUCOSE (11/12/2023 8:01 AM CDT) POC Glucose 152(H) 70 - 100 mg/dL [facility] CARE Blood 11/12/2023 8:01 AM CDT Jessica Grullon MD LABORATORY [facility] POINT OF CARE [address] [place] [address], [place] * (ABNORMAL) POC GLUCOSE (11/12/2023 7:00 AM CDT) POC Glucose 147(H) 70 - 100 mg/dL [facility] POINT OF CARE Blood 11/12/2023 7:00 AM CDT Jessica Grullon MD LABORATORY Performing Organization Address City/[facility] Co de Phone Number [facility] POINT [facility] [address] [place] [address], [place] * (ABNORMAL) POC GLUCOSE (11/12/2023 6:02 AM CDT) POC Glucose 169(H) 70 - 100 mg/dL [facility] POINT OF CARE Blood 11/12/2023 6:02 AM CDT Jessica Grullon MD LABORATORY Performing Organization Address City/[facility]/ZIP Co de Phone Number [facility] POINT OF [facility] [address] [place] [address], [place] * (ABNORMAL) POC GLUCOSE (11/12/2023 5:00 AM CDT) POC Glucose 166(H) 70 - 100 mg/dL [facility] POINT OF CARE Blood 11/12/2023 5:00 AM CDT Jessica Grullon MD LABORATORY Performing Organization Address City/[facility]/ZIP Co de Phone Number [facility] POINT OF CARE [address] [place] [address], [place] * (ABNORMAL) POC GLUCOSE (11/12/2023 4:02 AM CDT) POC Glucose 178(H) 70 - 100 mg/dL [facility] POINT OF CARE Blood 11/12/2023 4:02 AM CDT Jessica Grullon MD LABORATORY Performing Organization Address City/[facility] Co de Phone Number [facility] [address] [place], [place] [address], [place] * (ABNORMAL) POC GLUCOSE (11/12/2023 3:17 AM CDT) POC Glucose 176(H) 70 - 100 mg/dL [facility] POINT OF [facility] Blood 11/12/2023 3:17 AM CDT Jessica Grullon MD LABORATORY Performing Organization Address City/[facility] Co de Phone Number [facility] [address] [place] [phone], [place] * (ABNORMAL) POC GLUCOSE (11/12/2023 2:14 AM CDT) POC Glucose 197(H) 70 - 100 mg/dL [facility] Blood 11/12/2023 2:14 AM CDT Jessica Grullon MD LABORATORY Performing Organization Address City/[facility] Co de Phone Number [facility] POINT OF [facility] [address] [place] [address], [place] * (ABNORMAL) POC GLUCOSE (11/12/2023 1:02 AM CDT) POC Glucose 195(H) 70 - 100 mg/dL [facility] Blood 11/12/2023 1:02 AM CDT Jessica Grullon MD LABORATORY Performing Organization Address City/[facility] Co de Phone Number [facility] [address] [place] [address], [place] * (ABNORMAL) POC GLUCOSE (11/12/2023 12:01 AM CDT) POC Glucose 180(H) 70 - 100 mg/dL [facility] POINT OF [facility] Blood 11/12/2023 12:0 1 AM CDT Jessica Grullon MD LABORATORY Performing Organization Address City/[facility] Co de Phone Number [facility] [address] [place] [address], [place] * (ABNORMAL) POC GLUCOSE (11/11/2023 11:01 PM CDT) POC Glucose 185(H) 70 - 100 mg/dL [facility] Blood 11/11/2023 11:0 1 PM CDT Jessica Grullon MD LABORATORY Performing Organization Address City/[facility] Co de Phone Number [facility] [address] [place] [address], [place] * (ABNORMAL) POC GLUCOSE (11/11/2023 10:00 PM CDT) POC Glucose 167(H) 70 - 100 mg/dL [facility] POINT OF [facility] Blood 11/11/2023 10:0 0 PM CDT Jessica Grullon MD LABORATORY Performing Organization Address City/[facility] Co de Phone Number [facility] [address] [place] [address], [place] * (ABNORMAL) POC GLUCOSE (11/11/2023 9:01 PM CDT) POC Glucose 148(H) 70 - 100 mg/dL [facility] POINT OF [facility] Blood 11/11/2023 9:01 PM CDT Jessica Grullon MD LABORATORY Performing Organization Address City/[facility]/ZIP Co de Phone Number [facility] POINT OF CARE [address] [place] [address], * (ABNORMAL) POC GLUCOSE (11/11/2023 8:02 PM CDT) POC Glucose 167(H) 70 - 100 mg/dL [facility] POINT OF CARE Blood 11/11/2023 8:02 PM CDT Jessica Grullon MD LABORATORY Performing Organization Address [facility] Co de Phone Number [facility] POINT OF CARE [address] [place] [address], * (ABNORMAL) POC GLUCOSE (11/11/2023 7:02 PM CDT) Pathologist [facility] POC Glucose 180(H) 70 - 100 mg/dL [facility] POINT OF [facility] Blood 11/11/2023 7:02 PM CDT Jessica Grullon MD LABORATORY Performing Organization Address [facility] Co de Phone Number [facility] [address] [place] [address], [place] * (ABNORMAL) PANEL BASIC METABOLIC (BMP) (11/11/2023 6:42 PM CDT) Pathologist [facility] Sodium 138 135 - 148 mmol/L [facility] Potassium 4.3 3.5 - 5.3 mmol/L [facility] Chloride 103 92 - 108 mmol/L [facility] CO2 25 22 - 30 mmol/L [facility] AnGap 10 8 - 16 mmol/L [facility] Glucose 181(H) 70 - 100 mg/dL [facility] BUN 21(H) 6 - 20 mg/dL [facility] Creatinine 1.03 0.70 - 1.25 mg/dL [facility] Calcium 8.0(L) 8.6 - 10.0 mg/dL [facility] eGFR (2020 CKD-EPI) 91 >=60 ml/min/1.7 3m2 [facility] Comment: The [...] Zac Churchill MD LABORATORY Performing Organization Address City/[facility] [place] [address] * (ABNORMAL) POC GLUCOSE (11/11/2023 6:05 PM CDT) POC Glucose 173(H) 70 - 100 mg/dL [facility] POINT OF [facility] Blood 11/11/2023 6:05 PM CDT Jessica Grullon MD LABORATORY Performing Organization Address [facility] Co de Phone Number [facility] POINT OF [address] * (ABNORMAL) POC GLUCOSE (11/11/2023 5:01 PM CDT) POC Glucose 163(H) 70 - 100 mg/dL [facility] Blood 11/11/2023 5:01 PM CDT Jessica Grullon MD LABORATORY Performing Organization Address [facility] Co de Phone Number [facility] [place] [address], * (ABNORMAL) POC GLUCOSE (11/11/2023 3:47 PM CDT) POC Glucose 138(H) 70 - 100 mg/dL [facility] POINT [facility] Blood 11/11/2023 3:47 PM CDT Jessica Grullon MD LABORATORY Performing Organization Address City/[facility]/ZIP Co de Phone Number [facility] POINT OF CARE [address] [place] [address], [place] * (ABNORMAL) POC GLUCOSE (11/11/2023 3:00 PM CDT) POC Glucose 147(H) 70 - 100 mg/dL [facility] POINT OF CARE Blood 11/11/2023 3:00 PM CDT Jessica Grullon MD LABORATORY Performing Organization Address [facility] Co de Phone Number [facility] POINT OF CARE [address] [place] [address], [place] * (ABNORMAL) POC GLUCOSE (11/11/2023 2:12 PM CDT) POC Glucose 147(H) 70 - 100 mg/dL [facility] POINT OF CARE Blood 11/11/2023 2:12 PM CDT Jessica Grullon MD LABORATORY Performing Organization Address [facility] Co de Phone Number [facility] POINT [facility] [address] [place] [address], [place] * (ABNORMAL) POC GLUCOSE (11/11/2023 1:02 PM CDT) POC Glucose 126(H) 70 - 100 mg/dL [facility] POINT OF CARE Blood 11/11/2023 1:02 PM CDT Jessica Grullon MD LABORATORY Performing Organization Address [facility] Co de Phone Number [facility] POINT OF [facility] [address] [place] [address], [place] * (ABNORMAL) POC GLUCOSE (11/11/2023 12:01 PM CDT) POC Glucose 141(H) 70 - 100 mg/dL [facility] POINT OF CARE Blood 11/11/2023 12:0 1 PM CDT Jessica Grullon MD LABORATORY [facility] [address] [place] [address], [place] * (ABNORMAL) POC GLUCOSE (11/11/2023 11:03 AM CDT) POC Glucose 163(H) 70 - 100 mg/dL [facility] POINT OF CARE Blood 11/11/2023 11:0 3 AM CDT Jessica Grullon MD LABORATORY Performing Organization Address City/[facility]/ZIP Co de Phone Number [facility] [address] [place] [id number], [place] * (ABNORMAL) POC GLUCOSE (11/11/2023 9:59 AM CDT) POC Glucose 170(H) 70 - 100 mg/dL [facility] POINT OF [facility] Blood 11/11/2023 9:59 AM CDT Jessica Grullon MD LABORATORY Performing Organization Address City/[facility] Co de Phone Number [facility] [address] [place] [phone], [place] * (ABNORMAL) POC GLUCOSE (11/11/2023 8:56 AM CDT) POC Glucose 166(H) 70 - 100 mg/dL [facility] POINT OF CARE Blood 11/11/2023 8:56 AM CDT Jessica Grullon MD LABORATORY Performing Organization Address City/[facility]/ZIP Co de Phone Number [facility] POINT OF [facility] [address] [place] [phone], [place] * (ABNORMAL) POC GLUCOSE (11/11/2023 8:01 AM CDT) POC Glucose 172(H) 70 - 100 mg/dL [facility] - POINT OF CARE Blood 11/11/2023 8:01 AM CDT Jessica Grullon MD LABORATORY Performing Organization Address City/[facility]/ZIP Co de Phone Number [facility] - POINT OF CARE [address] [place] [address], [place] * ICU PHOSPHORUS (11/11/2023 5:36 AM CDT) Phosphorus 2.9 2.5 - 4.5 mg/dL [facility] Blood 11/11/2023 5:36 AM CDT 11/11/2023 5:45 AM CDT Zac Churchill MD LABORATORY Performing Organization Address City/[facility] Co de Phone Number [facility] [address] [address] * (ABNORMAL) ICU MAGNESIUM (11/11/2023 5:36 AM CDT) [facility] Magnesium 1.2(L) 1.6 - 2.6 mg/dL [facility] Blood 11/11/2023 5:36 AM CDT 11/11/2023 5:45 AM CDT Zac Churchill MD LABORATORY Performing Organization Address [facility] Co de Phone Number [facility] [address] [address] * (ABNORMAL) ICU CBC WITH PLTS/AUTO DIFF (11/11/2023 5:36 AM CDT) WBC 17.41(H) 4.00 - 10.00 k/cmm [facility] RBC 2.72(L) 4.60 - 6.00 m/cmm [facility] Hgb 7.8(L) 13.1 - 17.5 g/dL [facility] Hematocrit 24.1(L) 40.0 - 51.0 % [facility] MCV 88.6 80.0 - 100.0 fL [facility] MCH 28.7 25.0 - 32.0 pg [facility] MCHC 32.4 31.0 - 36.0 g/dL [facility] RDW 13.2 11.5 - 14.5 % [facility] Plt 203 150 - 400 k/cmm [facility] MPV 10.1 6.5 - 12.5 fL [facility] Automated Abs Neutrophil 13.29(H) 1.70 - 6.50 k/cmm [facility] Comment:Preliminary ANC, Fin al Result to Follow Judy Cell Slight [facility] Toxic Gran Present [facility] Toxic Vac Present [facility] Abs Neutrophil 13.41(H) 1.70 - 6.50 k/cmm [facility] Abs Lymphocyte 2.96 0.80 - 4.00 k/cmm [facility] Abs Monocyte 0.87 0.20 - 1.00 k/cmm [facility] Abs Basophil 0.17 0.00 - 0.20 k/cmm [facility] Blood 11/11/2023 5:36 AM CDT 11/11/2023 5:45 AM CDT Zac Churchill MD LABORATORY [facility] [place] [address] * (ABNORMAL) ICU PANEL BASIC METABOLIC (BMP) (11/11/2023 5:36 AM CDT) AnGap 9 8 - 16 mmol/L [facility] BUN 15 6 - 20 mg/dL [facility] Calcium 6.0(AA) 8.6 - 10.0 mg/dL [facility] Comment:Critical Result Low Chloride 108 92 - 108 mmol/L [facility] CO2 22 22 - 30 mmol/L [facility] Glucose 135(H) 70 - 100 mg/dL [facility] Creatinine 0.93 0.70 - 1.25 mg/dL [facility] Potassium 3.2(L) 3.5 - 5.3 mmol/L [facility] eGFR (2020 CKD-EPI) 103 >=60 ml/min/1.7 3m2 [facility] Comment: The estimated glomerular filtration rate (eGFR) was calculated using the CKD-EPI 2020 creatinine equation, which does not include race as a factor. This equation is validated in individuals 18 years of age and older, and eGFR is normalized to a body surface area of 1.73m^2. Sodium 139 135 - 148 mmol/L [facility] Blood 11/11/2023 5:36 AM CDT 11/11/2023 5:45 AM CDT Narrative [facility] - 11/11/2023 6:25 AM CDT Critical value for Calcium called to and read back by Sheila Dias RN in STN4 at 11/11/2023 06:24:12 CDT by Larry Fuchs MLS. Zac Churchill MD LABORATORY [facility] [place] [address] * (ABNORMAL) POC GLUCOSE (11/11/2023 5:28 AM CDT) POC Glucose 149(H) 70 - 100 mg/dL [facility] POINT OF CARE Blood 11/11/2023 5:28 AM CDT Jessica Grullon MD LABORATORY Performing Organization Address City/[facility]/ZIP Co de Phone Number [facility] POINT OF [address] * (ABNORMAL) POC GLUCOSE (11/11/2023 4:29 AM CDT) POC Glucose 159(H) 70 - 100 mg/dL [facility] POINT OF CARE Blood 11/11/2023 4:29 AM CDT Jessica Grullon MD LABORATORY [facility] POINT OF [address] * (ABNORMAL) POC GLUCOSE (11/11/2023 3:28 AM CDT) POC Glucose 153(H) 70 - 100 mg/dL [facility] POINT OF CARE Blood 11/11/2023 3:28 AM CDT Jessica Grullon MD LABORATORY [facility] [address] [place] [address], [place] * (ABNORMAL) POC GLUCOSE (11/11/2023 2:18 AM CDT) POC Glucose 172(H) 70 - 100 mg/dL [facility] POINT OF [facility] Blood 11/11/2023 2:18 AM CDT Jessica Grullon MD LABORATORY Performing Organization Address City/[facility] Co de Phone Number [facility] [address] [place] [address], [place] * (ABNORMAL) POC GLUCOSE (11/11/2023 1:03 AM CDT) POC Glucose 171(H) 70 - 100 mg/dL [facility] POINT [facility] Blood 11/11/2023 1:03 AM CDT Jessica Grullon MD LABORATORY Performing Organization Address City/[facility] Co de Phone Number [facility] [address] [place] [address], [place] * (ABNORMAL) POC GLUCOSE (11/10/2023 11:50 PM CDT) POC Glucose 201(H) 70 - 100 mg/dL [facility] POINT OF [facility] Blood 11/10/2023 11:5 0 PM CDT Jessica Grullon MD LABORATORY Performing Organization Address City/[facility]/ZIP Co de Phone Number [facility] [address] [place] [phone], [place] * (ABNORMAL) POC GLUCOSE (11/10/2023 10:39 PM CDT) POC Glucose 192(H) 70 - 100 mg/dL [facility] - POINT OF CARE Blood 11/10/2023 10:3 9 PM CDT Jessica Grullon MD LABORATORY [facility] - POINT OF CARE [address] [place] [address], [place] * (ABNORMAL) TROP 6H (11/10/2023 10:15 PM CDT) 6H Trop 35 <=35 ng/L [facility] 6H Delta Significan t(A) Not Significant [facility] Blood 11/10/2023 10:1 5 PM CDT 11/10/2023 10:31 PM CDT Jessica Grullon MD LABORATORY Performing Organization Address City/[facility]/ZIP Co de Phone Number [facility] [address] [place] [phone] * (ABNORMAL) POC GLUCOSE (11/10/2023 9:36 PM CDT) POC Glucose 200(H) 70 - 100 mg/dL [facility] - POINT OF CARE Blood 11/10/2023 9:36 PM CDT Jessica Grullon MD LABORATORY Performing Organization Address City/[facility]/ZIP Co de Phone Number [facility] POINT OF CARE [address] [place] [address], [place] * (ABNORMAL) POC GLUCOSE (11/10/2023 8:17 PM CDT) POC Glucose 221(H) 70 - 100 mg/dL [facility] - POINT OF CARE Blood 11/10/2023 8:17 PM CDT Jessica Grullon MD LABORATORY Performing Organization Address City/[facility]/ZIP Co de Phone Number [facility] POINT OF CARE [address] [place] [address], [place] * (ABNORMAL) POC GLUCOSE (11/10/2023 7:07 PM CDT) POC Glucose 227(H) 70 - 100 mg/dL [facility] POINT OF CARE Blood 11/10/2023 7:07 PM CDT Jessica Grullon MD LABORATORY Performing Organization Address [facility]/ZIP Co de Phone Number [facility] POINT OF CARE [address] [place] [address], * (ABNORMAL) TROP 2H (11/10/2023 6:34 PM CDT) Pathologist [facility] 2H Trop 21 <=35 ng/L [facility] 2H Delta Significan t(A) Not Significant [facility] Blood 11/10/2023 6:34 PM CDT 11/10/2023 6:37 PM CDT Jessica Grullon MD LABORATORY Performing Organization Address [facility] Co de Phone Number [facility] [address] [address] * (ABNORMAL) LACTATE (LACTIC ACID) (11/10/2023 6:34 PM CDT) Pathologist [facility] Lactate 14.6(H) 0.7 - 2.1 mmol/L [facility] Blood 11/10/2023 6:34 PM CDT 11/10/2023 6:37 PM CDT Narrative [facility] - 11/10/2023 6:41 PM CDT Send specimen on ice! Jesscia Grullon MD LABORATORY Performing Organization Address [facility] Co de Phone Number [facility] [address] [address] * (ABNORMAL) POC GLUCOSE (11/10/2023 6:07 PM CDT) POC Glucose 201(H) 70 - 100 mg/dL [facility] POINT OF CARE Blood 11/10/2023 6:07 PM CDT Jessica Grullon MD LABORATORY Performing Organization Address [facility] Co de Phone Number [facility] POINT OF CARE [address] [place] [phone], * (ABNORMAL) POC GLUCOSE (11/10/2023 5:30 PM CDT) POC Glucose 197(H) 70 - 100 mg/dL [facility] POINT OF [facility] Blood 11/10/2023 5:30 PM CDT Jessica Grullon MD LABORATORY Performing Organization Address [facility] de Phone Number [address] [address], [place] * M TUBERCULOSIS AMPLIFICATION (11/10/2023 5:13 PM CDT) Final Report M. tuberculosis complex DNA not detected. [facility] Tissue STRUCTURE OF PERINEAL BODY / Unknown 11/10/2023 5:13 PM CDT 11/11/2023 10:50 AM CDT Comment:2:Perineal tissue Narrative [facility] - 11/11/2023 3:22 PM CDT This assay uses PCR nucleic acid amplification to detect Mycobacterium tuberculosis complex DNA. ??This test was developed and its performance characteristics determined by [facility]. ??It has not been cleared or approved by the U.S. Food and Drug Administration. ??FDA does not require this test to go through premarket FDA review. ??This test is used for clinical purposes. ??It should not be regarded as investigational or for research. ??[facility] Clinical Laboratory is certified under the Clinical Laboratory Improvement Amendments of 1988 (CLIA) as qualified to perform high complexity clinical laboratory testing. aZc Churchill MD LAB MICROBIOLOGY Performing Organization Address City/[facility] Co de Phone Number [facility] [address] [place] [phone] * (ABNORMAL) TISSUE CULTURE:INCLUDES GRAM STAIN (11/10/2023 5:13 PM CDT) Final Report Positive Culture Rare Actinomyces species isolated. Most closely resembles Actinomyces hominis. Rare Staphylococcus pettenkoferi isolated. A member of the coagulase-negative Staphylococci. Staphylococcus epidermidis isolated in broth only. No further work-up. Plates held one week. (POS) [facility] Organism ACTINOMYCES SPECIES(POS) [facility] Organism STAPHYLOCOCCUS PETTENKOFERI(POS) [facility] Organism STAPHYLOCOCCUS EPIDERMIDIS(POS) [facility] Gram Stain Report Positive Gram stain Gram stain electronically reported to and acknowledged by: Fermin Osborn MD for Burn on 11/10/2023 18:43:03 by Silver Luna MLS Rare WBC's seen. Many gram positive cocci in clusters. (POS) [facility] Tissue STRUCTURE OF PERINEAL BODY / Unknown 11/10/2023 5:13 PM CDT Zac Churchill MD LAB MICROBIOLOGY Performing Organization Address [facility] de Phone Number [facility] [address] [address] * FUNGUS CULTURE:INCLUDES SUHAS (11/10/2023 5:13 PM CDT) Final Report No fungus isolated. [facility] SUHAS Prep No fungal elements seen. [facility] Tissue STRUCTURE OF PERINEAL BODY / Unknown 11/10/2023 5:13 PM CDT Zac Churchill MD LAB MICROBIOLOGY Performing Organization Address [facility] Co de Phone Number [facility] [address] [address] * (ABNORMAL) ANAEROBE CULTURE (11/10/2023 5:13 PM CDT) Final Report Positive Culture Many mixed anaerobes present. (POS) [facility] Tissue STRUCTURE OF PERINEAL BODY / Unknown 11/10/2023 5:13 PM CDT Zac Churchill MD LAB MICROBIOLOGY Performing Organization Address [facility] Co de Phone Number [facility] [address] [address] * AFB CULTURE:INCLUDES AFB SMEAR (11/10/2023 5:13 PM CDT) Final Report No acid fast bacilli isolated. [facility] Acid Fast Stain No acid fast bacilli seen. [facility] Tissue STRUCTURE OF PERINEAL BODY / Unknown 11/10/2023 5:13 PM CDT Zac Churchill MD LAB MICROBIOLOGY Performing Organization Address [facility] Co de Phone Number [facility] [address] [address] * (ABNORMAL) WOUND CULTURE:GRAM STAIN OPTIONAL (11/10/2023 5:12 PM CDT) Final Report Rare Actinomyces species isolated. Most closely resembles Actinomyces hominis. One colony Staphylococcus epidermidis isolated. (POS) [facility] Organism ACTINOMYCES SPECIES(POS) [facility] Organism STAPHYLOCOCCUS EPIDERMIDIS(POS) [facility] Gram Stain Report Many WBC's seen. Many gram positive cocci in clusters. [facility] Swab STRUCTURE OF PERINEAL BODY / Unknown 11/10/2023 5:12 PM CDT Narrative [facility] - 11/12/2023 3:34 PM CDT Do you want a gram stain: No Zac Churchill MD LAB MICROBIOLOGY Performing Organization Address [facility] Co de Phone Number [facility] [address] [address] * FUNGUS CULTURE:INCLUDES SUHAS (11/10/2023 5:12 PM CDT) Final Report No fungus isolated. [facility] SUHAS Prep No fungal elements seen. [facility] Swab STRUCTURE OF PERINEAL BODY / Unknown 11/10/2023 5:12 PM CDT Zac Churchill MD LAB MICROBIOLOGY Performing Organization Address [facility] Co de Phone Number [facility] [place] [address] [address] * ANAEROBE CULTURE (11/10/2023 5:12 PM CDT) Final Report Moderate mixed anaerobes present. [facility] Swab STRUCTURE OF PERINEAL BODY / Unknown 11/10/2023 5:12 PM CDT Zac Churchill MD LAB MICROBIOLOGY Performing Organization Address [facility] Co de Phone Number [facility] [address] [address] * (ABNORMAL) POC GLUCOSE (11/10/2023 4:28 PM CDT) POC Glucose 236(H) 70 - 100 mg/dL [facility] POINT OF CARE Blood 11/10/2023 4:28 PM CDT Jessica Grullon MD LABORATORY Performing Organization Address [facility] de Phone Number [facility] - POINT OF [address] [address], * ED EKG (12-LEAD) (11/10/2023 3:21 PM CDT) 11/10/2023 3:21 PM CDT Impressions [facility] CVIS EKG ORDERS - 11/10/2023 3:21 PM CDT SINUS TACHYCARDIA MINIMAL ST DEPRESSION ??[0.025+ mV ST DEPRESSION] ABNORMAL QRS-T ANGLE ??[QRS-T AXIS DIFFERENCE > 60] NONSPECIFIC ST AND T WAVE ABNORMALITY. ABNORMAL ECG P-R Interval 138 ms QRS Interval 90 ms QT Interval 348 ms QTC Interval 405 ms P [place] 35 QRS [place] 1 T Wave [place] 148 Narrative Procedure Note Jessica Grullon MD - 11/10/2023 IMPRESSION SINUS TACHYCARDIA MINIMAL ST DEPRESSION [0.025+ mV ST DEPRESSION] ABNORMAL QRS-T ANGLE [QRS-T AXIS DIFFERENCE > 60] NONSPECIFIC ST AND T WAVE ABNORMALITY. 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 ??No initial report accompanied the patient and/or Dr. ??JESSICA GRULLON requested an interpretation by me. Technique: ??CT scan of the left lower extremity done on 11/10/2023 with IV contrast. 2 mm axial, sagittal and coronal reconstructions reviewed in soft tissue and bone windows, per the local institution's scanning protocols, which may differ from the [facility] trauma protocols. Findings: [...] MBBS - 11/10/2023 Indication: Patient transferred from [facility] due toFournier's gangrene. No initial report accompanied the patient and/or Dr.ROCHELLE GRULLON requested an interpretation by me. Technique: CT scan of the left lower extremity done on 11/10/2023 with IVcontrast. 2 mm axial, sagittal and coronal reconstructions reviewed insoft tissue and bone windows, per the local institution's scanningprotocols, which may differ from the [facility] trauma protocols. 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 ??No initial report accompanied the patient and/or Dr. ??JESSICA GRULLON requested an interpretation by me. Technique: ??CT scan of the abdomen/pelvis done on 11/10/2023 ??with IV contrast. ??3 mm axial, sagittal and coronal reconstructions reviewed in soft tissue and bone windows, per the local institution's scanning protocols, which may differ from the [facility] trauma protocols. Comparison: [...] MBBS - 11/10/2023 Indication: Patient transferred from [facility] due toFournier's gangrene. No initial report accompanied the patient and/or .JESSICA GRULLON requested an interpretation by me. Technique: CT scan of the abdomen/pelvis done on 11/10/2023 with IVcontrast. 3 mm axial, sagittal and coronal reconstructions reviewed insoft tissue and bone windows, per the local institution's scanningprotocols, which may differ from the [facility] trauma protocols. Comparison: [...] (11/10/2023 2:40 PM CDT) Color YELLOW YELLOW [facility] Appearance CLEAR CLEAR [facility] Urine Glucose >=1000(A) NEGATIVE mg/dL [facility] Bili UA NEGATIVE NEGATIVE [facility] Ketones TRACE(A) NEGATIVE [facility] Blood Ur LARGE(A) Neg-Trace [facility] PH Urine 6.5 5.0 - 7.0 [facility] Protein Ur >=600(A) Neg-Trace [facility] Urobilinogen NORMAL NORMAL EU/dL [facility] Nitrite Ur NEGATIVE NEGATIVE [facility] Leuk Est NEGATIVE Neg-Trace [facility] WBC Ur 0-5 0 - 5 perHPF [facility] RBC Ur 11-20(A) 0 - 3 perHPF [facility] SQ EPITH 0-5 0 - 5 perHPF [facility] Mucus 1+ perLPF [facility] Bacteria UA PRESENT [facility] Comment:Presence of bacteria does not necessarily indicate a UTI. The presence of bacteria can indicate a non-clean catch urine specimen. Bacteria should be used in conjunction with other UA results and clinical presentation to assist in diagnosing an infection. Urinalysis Performed at: [facility] Specific [place] 1.020 1.003 - 1.030 [facility] Urine 11/10/2023 2:40 PM CDT 11/10/2023 2:47 PM CDT Jessica Grullon MD LABORATORY Performing Organization Address [facility] Co de Phone Number [facility] [place] [phone] * BLOOD AEROBIC/ANAEROBIC CULTURE (11/10/2023 2:39 PM CDT) Final Report No growth after 5 days. [facility] Blood (Peripheral) 11/10/2023 2:39 PM CDT 11/10/2023 4:09 PM CDT Jessica Grullon MD LAB MICROBIOLOGY Performing Organization Address [facility] Co de Phone Number [facility] [address] [address] * BLOOD AEROBIC/ANAEROBIC CULTURE (11/10/2023 2:37 PM CDT) Final Report No growth after 5 days. [facility] Blood (Peripheral) 11/10/2023 2:37 PM CDT 11/10/2023 4:09 PM CDT Jessica Grullon MD LAB MICROBIOLOGY Performing Organization Address [facility]/ZIP Co de Phone Number [facility] [address] [address] * (ABNORMAL) SED RATE (ESR) (11/10/2023 2:31 PM CDT) Sed Rate 120(H) 2 - 10 mm/hr [facility] Blood 11/10/2023 2:31 PM CDT 11/10/2023 2:57 PM CDT Jessica Grullon MD LABORATORY Performing Organization Address [facility] Co de Phone Number [facility] [address] [address] * EXTRA TUBE - SST (11/10/2023 2:31 PM CDT) Pathologist [facility] SST TUBE Stored [facility] Comment:SST tubes (Serum Sep arator) are stored in the lab for 3 days from the collection date. Blood 11/10/2023 2:31 PM CDT 11/10/2023 2:43 PM CDT Jessica Grullon MD LABORATORY Performing Organization Address [facility] Co de Phone Number [facility] [address] [address] * (ABNORMAL) HS TROPONIN (11/10/2023 2:31 PM CDT) [facility] HS Troponin I 49(H) <=35 ng/L [facility] [facility] Blood 11/10/2023 2:31 PM CDT 11/10/2023 2:57 PM CDT Narrative [facility] - 11/10/2023 3:25 PM CDT First Occurrence of the Troponin order is to be drawn Stat by Nursing staff on the unit. Jessica Grullon MD LABORATORY Performing Organization Address [facility] Co de Phone Number [facility] [address] [address] * ETHANOL (ETOH) LEVEL, BLOOD (11/10/2023 2:31 PM CDT) [facility] Ethanol Negative Negative g/dL [facility] Blood 11/10/2023 2:31 PM CDT 11/10/2023 2:57 PM CDT Jessica Grullon MD LABORATORY Performing Organization Address [facility] Co de Phone Number [facility] [address] [address] * PTT (APTT) (11/10/2023 2:31 PM CDT) [facility] APTT 32.9 25.0 - 37.0 sec [facility] Blood 11/10/2023 2:31 PM CDT 11/10/2023 2:57 PM CDT Jessica Grullon MD LABORATORY Performing Organization Address [facility] Co de Phone Number [facility] [address] [address] * ED INR (11/10/2023 2:31 PM CDT) [facility] ED INR 1.1 0.8 - 1.1 [facility] Comment: Warfarin Therapeutic Range: Standard Intensity: 2.0 - 3.0 High Intensity: 2.5 - 3.5 This is a rapid INR screening test which uses whole blood; results may infrequently differ from plasma INR results. If medication adjustments/dosing are required a PT/INR test ([id number]) should be ordered and performed in the main laboratory. Blood 11/10/2023 2:31 PM CDT 11/10/2023 2:41 PM CDT Jessica Grullon MD LABORATORY Performing Organization Address [facility] Co de Phone Number [facility] [address] [address] * (ABNORMAL) LACTATE (LACTIC ACID) (11/10/2023 2:31 PM CDT) [facility] Lactate 2.3(H) 0.7 - 2.1 mmol/L [facility] Blood 11/10/2023 2:31 PM CDT 11/10/2023 2:45 PM CDT Narrative [facility] - 11/10/2023 2:49 PM CDT Send specimen on ice! Jessica Grullon MD LABORATORY Performing Organization Address [facility] Co de Phone Number [facility] [address] [address] * (ABNORMAL) FIBRINOGEN (11/10/2023 2:31 PM CDT) [facility] Fibrinogen >1,000(H) 200 - 400 mg/dL [facility] Blood 11/10/2023 2:31 PM CDT 11/10/2023 2:57 PM CDT Jessica Grullon MD LABORATORY Performing Organization Address [facility] de Phone Number [address] [address] * (ABNORMAL) PANEL HEPATIC FUNCTION (11/10/2023 2:31 PM CDT) Pathologist [facility] Total Protein 7.1 6.4 - 8.3 g/dL [facility] Albumin 2.9(L) 3.8 - 5.1 g/dL [facility] Bili Total 0.3 <=1.2 mg/dL [facility] Bili Direct <0.2 <=0.3 mg/dL [facility] Alk Phos 104 40 - 129 IU/L [facility] Comment:No reference range e stablished for patients <18 years old. ALT (SGPT) 9 <=41 IU/L [facility] AST(SGOT) 14 5 - 40 IU/L [facility] Blood 11/10/2023 2:31 PM CDT 11/10/2023 2:57 PM CDT Jessica Grullon MD LABORATORY [facility] [address] [place] [phone] * (ABNORMAL) ED HEMOGLOBIN TOTAL (ED ONLY) (11/10/2023 2:31 PM CDT) Hgb 12.4(L) 13.1 - 17.5 g/dL [facility] Blood 11/10/2023 2:31 PM CDT 11/10/2023 2:45 PM CDT Jessica Grullon MD LABORATORY [facility] [address] [address] * (ABNORMAL) ED CHEMISTRY LABS(NA,K,CL,CO2,GLU,CREAT,CA-IONIZED,ANION GAP) (11/10/2023 2:31 PM CDT) Sodium 133(L) 135 - 148 mmol/L [facility] Potassium 3.7 3.5 - 5.3 mmol/L [facility] Chloride 93 92 - 108 mmol/L [facility] AnGap 12 8 - 16 mmol/L [facility] Glucose 304(H) 70 - 100 mg/dL [facility] ICA, Actual 4.14(L) 4.40 - 5.20 mg/dL [facility] ICA, pH Corrected 4.29(L) 4.40 - 5.20 mg/dL [facility] Creatinine 0.98 0.70 - 1.25 mg/dL [facility] BICARB 27(H) 22 - 26 mEq/L [facility] eGFR (2020 CKD-EPI) 97 >=60 ml/min/1.7 3m2 [facility] Comment: The [...] 2:45 PM CDT Jessica Grullon MD LABORATORY [facility] [address] [place] [address] * (ABNORMAL) CBC WITH PLTS/AUTO DIFF (11/10/2023 2:31 PM CDT) WBC 21.95(H) 4.00 - 10.00 k/cmm [facility] RBC 4.26(L) 4.60 - 6.00 m/cmm [facility] Hgb 12.0(L) 13.1 - 17.5 g/dL [facility] Hematocrit 36.3(L) 40.0 - 51.0 % [facility] MCV 85.2 80.0 - 100.0 fL [facility] MCH 28.2 25.0 - 32.0 pg [facility] MCHC 33.1 31.0 - 36.0 g/dL [facility] RDW 12.9 11.5 - 14.5 % [facility] Plt 262 150 - 400 k/cmm [facility] MPV 10.1 6.5 - 12.5 fL [facility] Automated Abs Neutrophil 18.29(H) 1.70 - 6.50 k/cmm [facility] Comment:Preliminary ANC, Fin al Result to Follow Abs Immature Granulocyte 0.26(H) 0.00 - 0.09 k/cmm [facility] Comment:The Immature Granulo cyte Absolute count contains metamyelocytes and myelocytes. Abs Neutrophil 18.29(H) 1.70 - 6.50 k/cmm [facility] Abs Lymphocyte 1.53 0.80 - 4.00 k/cmm [facility] Abs Monocyte 1.83(H) 0.20 - 1.00 k/cmm [facility] Abs Eosinophil 0.00 0.00 - 0.60 k/cmm [facility] Abs Basophil 0.04 0.00 - 0.20 k/cmm [facility] Polychromasia Slight [facility] Dohle Body Present [facility] Toxic Vac Present [facility] Blood 11/10/2023 2:31 PM CDT 11/10/2023 2:57 PM CDT Jessica Grullon MD LABORATORY Performing Organization Address [facility] Co de Phone Number [facility] [address] [address] * (ABNORMAL) BLOOD GASES (11/10/2023 2:31 PM CDT) PH Mayo 7.47(H) 7.32 - 7.42 [facility] PCO2 Mayo 38(L) 41 - 51 mmHG [facility] PO2 Mayo 75(H) 25 - 40 mmHG [facility] Bicarb Mayo 27 24 - 28 mEq/L [facility] O2 Sat Mayo 96 % [facility] Base Exc Mayo 3.7(H) -10.0 - 2.0 mmol/L [facility] Blood Venous 11/10/2023 2:31 PM CDT 11/10/2023 2:45 PM CDT Jessica Grullon MD LABORATORY Performing Organization Address [facility] Co de Phone Number [facility] [address] [address] * ANTIBODY SCREEN (11/10/2023 2:29 PM CDT) Lilly Screen Negative [facility] Blood 11/10/2023 2:29 PM CDT 11/10/2023 2:49 PM CDT Jessica Grullon MD LAB TRANSFUSION SER VICES Performing Organization Address [facility] Co de Phone Number [facility] [address] [address] * BLOOD TYPING-ABO/RH (11/10/2023 2:29 PM CDT) ABORHG A POS [facility] Blood 11/10/2023 2:29 PM CDT 11/10/2023 2:49 PM CDT Jessica Grullon MD LAB TRANSFUSION SER VICES Performing Organization Address [facility] Co de Phone Number [facility] [address] [address] * PRECAUTIONARY TUBE (11/10/2023 2:29 PM CDT) Prec Tube Precautionary Blood Bank Specimen Received. [facility] Blood 11/10/2023 2:29 PM CDT 11/10/2023 2:49 PM CDT Jessica Grullon MD LAB TRANSFUSION SER VICES [facility] [address] [place] [address] * ED US CRITICAL CARE (11/10/2023 2:28 PM CDT) Anatomical Region Laterality Modality Ultrasound Narrative 11/10/2023 3:16 PM CDT ED Critical Care Resuscitative Ultrasound ED Cardiac Ultrasound Body Areas Imaged: Heart, Chest Wall/Lungs, and Inferior Vena Cava Indications:Shock/Sepsis Window: Subxiphoid, Parasternal Short [place], Parasternal Long [place], Apical 4-Chamber, and Bilateral Lungs Findings: The [...] 0900, Last dose on Wed11/17/23 at 0900 [facility] 11/16/2023 8:20 AM CDT 2 g 200 mL/hr 11/15/2023 9:05 AM CDT 2 g 200 mL/hr [facility] 11/14/2023 9:40 AM CDT 2 g 200 mL/hr clindamycin (CLEOCIN) IVPB 900 mg 900 mg, Indication (Select One): Infection - Confirmed, SITE (Select all that apply): Skin/Soft Tissue, Cultures Ordered? Yes, Intravenous, Q 8H, First dose on Wed11/10/23 at 1830, Until Discontinued [facility] 11/12/2023 5:24 PM CDT 900 mg 50 mL/ hr 11/12/2023 9:21 AM CDT 900 mg 50 mL/hr [facility] 11/12/2023 12:23 AM CDT 900 mg 50 [...] 11/12/2023 1:40 PM CDT 600 mg heparin 09067 UNITS/mL injection 7,500 UNITS 7,500 UNITS, Subcutaneous, [...] (Given - Provider: Sheila Dias, RN) heparin 43332 UNITS/mL injection 7,500 UNITS 7,500 UNITS, Subcutaneous, Q 8H, First dose on Wed11/17/23 at 1505, Until Discontinued 0553 (Given - Provider: Mabel Mathews, RN)1424 (Given - Provider: Demetra Briot, SABINE)2304 (Given - Provider: Irene Min, SABINE) [...] John Taylor, SABINE)1149 (Given - Provider: John Taylro, SABINE)1636 (Dual Sign-Off - Provider: Demetra Brito [...] Reason: Held per nurse)2029 (Given - Provider: Ierne Min RN) 075 (Given - Provider: Demetra [...]
--- OUTSIDE RECORDS SUMMARY | 2024-02-21 09:08 | XMS_ITS | Encounter Summary ---
Author Organization [facility] Address [address] [facility] [place] [address] Phone Care Team Providers Care Flarer Name Role Phone Unavailable Primary Care Provider Unavailabl e Reason for Visit * Auth/Cert (Routine) Specialty Diagnoses / Procedures Referred By Katherine t Referred To Contact SURGERY Diagnoses 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HHS) Hyperglycemia Zac Jackson MD [address] [facility] [address] [place] [address] [address] [phone] [place] [address] Referral ID Status Reason Start Date Expiration Date Visits Re quested Visits Authorized [id number] 1 1 Encounter Details Date Type Department Care Team (Late st Contact Info) Description 11/17/2023 9:01 AM CDT Anesthesia Event OR P4 [address] [place] [address] Brady Lai MD [address] [facility] [address] [place], [place] [id number] [place] [phone] Anesthesia Record Procedure Summary Procedure Name Responsible [...] [facility]. [facility] type: [facility] () Patient location: [...] GI (+) obesity Hematologic/Onc - negative ROS /Renal/Filling Layer Up (+) chronic renal disease (acute and chronic) [...] risks discussed with patient. Plan discussed with ROLL CONTOUR GRINDER. Vitals: 11/17/23 0344 BP: (!) 171/80 Pulse: 90 Resp: 16 Temp: 36.6 ??C (97.9 ??F) SpO2: 96% documented in this encounter Miscellaneous Notes * Anesthesia Handoff Note - Dayana Rincon APRN, ROLL CONTOUR GRINDER - 11/17/2023 9:58 AM CDT Anesthesia Post [...]
--- OUTSIDE RECORDS SUMMARY | 2024-02-21 09:08 | XMS_ITS | Encounter Summary ---
Author Organization [facility] Address [address] [place] [address] Phone Care Team Providers Care Building Services Engineer Name Role Phone Unavailable Primary Care [...]
--- OUTSIDE RECORDS SUMMARY | 2024-02-21 09:08 | XMS_ITS | Encounter Summary ---
Author Organization [facility] Address [address] [place] [address] Phone Care Team Providers Care Reuse Technician Name Role Phone Unavailable Primary Care [...]
--- OUTSIDE RECORDS SUMMARY | 2024-02-21 09:08 | XMS_ITS | Encounter Summary ---
Author Organization [facility] Address [address] [place] [phone] Phone Care Team Providers Care Scientific Advisor Name Role Phone Unavailable Primary Care [...]
--- OUTSIDE RECORDS SUMMARY | 2024-02-21 09:08 | XMS_ITS | Encounter Summary ---
Author Organization [facility] Address [address] [place] [address] Phone Care Team Providers Care Manager Of Finance Name Role Phone Unavailable Primary Care Provider [...]
--- OUTSIDE RECORDS SUMMARY | 2024-02-21 09:08 | XMS_ITS | Encounter Summary ---
Author Organization [facility] Address [address] [place] [address] Phone Care Team Providers Care Welding Machine Operator Electro Gas Name Role Phone Unavailable Primary Care Provider Unavailabl e Encounter Details Date Type Department Care Team (Late st Contact Info) Description 11/18/2023 [facility] [place] [phone] Eusebio Leon, DO [address] [id number] Social History Tobacco Use Types Packs/Day Years [...]
--- OUTSIDE RECORDS SUMMARY | 2024-02-21 09:09 | XMS_ITS | Encounter Summary ---
Author Organization [facility] Address [address] [place] [address] Phone Care Team Providers Care Rehab Aide Name Role Phone Unavailable Primary Care Provider Unavailabl e Reason for Visit * Reason Comments Fever Penis/Scrotal Problem Toe Problem * Auth/Cert (Routine) Specialty Diagnoses / Procedures Referred By Katherine t Referred To Contact SURGERY Diagnoses 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HHS) Hyperglycemia Zac Churchill MD [address] [facility] [address] [place] [address] [address] [facility] [address] [place] [address] Referral ID Status Reason Start Date Expiration Date Visits Re quested Visits Authorized [id number] 1 1 Encounter Details Date Type Department Care Team (Late st Contact Info) Description 11/17/2023 8:34 AM CDT - 11/17/2023 9:46 AM CDT Surgery OR P4 [address] [place] [address] Che Palomo DPM [address] [facility] [address] [place], [place] [id number] AMPUTATION, TOE Social History Tobacco Use Types [...] encounter Discharge Summaries * 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 APRN, ASSISTANT COUNSEL - 11/25/2023 7:37 AM CDT GENERAL SURGERY DISCHARGE SUMMARY - 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 No gross focal deficits Engineering Associate Needed: no PLANNED DISCHARGE ORDERS: Suture/Sharon: None [...] plan of care? Yes Okay for Senior Living Facility standing orders? Question Response Notes OK for Senior Living Facility house standing orders? Yes Other Nursing [...] or contraindicated. Resume previous standing orders per custodial policy Order Notes Resume previous standing orders per custodial policy Patient is on a Consistent Carbohydrate [...] 4:30PM, M-F): Call the Surgery Clinic at [phone] After hours or on Holidays: Call the [facility] shuffle board operator . Ask the shuffle board operator to page the general surgery resident process control operator. IF: -- you feel you are [...] -- Read all labels for prescription and Bnlb-tzy-gudwzps medicines. Ask the pharmacist if your prescription [...] Your Medications These medications were sent to [facility] Discharge Pharmacy - [place] [address] Hours: 30/11 insulin LISPRO 100 UNIT/ML Kwikpen [...] plan. 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 APRN, CNP 11/25/2023 07:37 [facility] Department of Surgery Pager: via telemediq I have spent 45 minutes with this patient today in which greater than 50% of this time was spent incounseling/coordination of care regarding in patient care, review of imaging/labs, chart review andconsultant recommendations. Dictation Disclaimer: Some notes are completed with voice-recognition dictation software. Errors are generally corrected in real time. Please contact me via [email or web address] staff message if you note any errors [...] - Resources for patient (select all that apply):[id number]} documented in this encounter Medications at Time [...] the discharge summary paperwork with medication orders. Box Tender opened admission encounter and re-faxed discharge paperwork to the provided fax # of [phone]. Tried a second fax # after this wasn't received, which also wasn't received. Third attempt made viaencrypter email. Confirmed received paperwork via encrypted email. Pepe Hernandez RN, 11/25/2023 9:33 PM ED Clinical Coordinator Office: [phone] TelMedIQ: ED Clinical Coordinator * Kate Harmon [...] (Arrive by 12:50 PM) with Dr Palomo ([facility]) since he is discharging to [place].Follows with [facility] when closer to home otherwise. Please page process control operator resident with questions. Interval History Patient [...] CDT Preadmission Screening Submitter InformationPerson Being ReferredMedical InformationADL'St. Lawrence Psychiatric CenterSubmitResults Results Thank you for submitting a [...] help, contact the Senior LinkAge Line at [phone] or click to contact us. Print this page You have successfully submitted the preadmission screening (PAS) to the Senior LinkAge Line on: Created On 11/24/2023 2:25 PM Your confirmation number is: [id number] Results Level of Care: Based on the information you provided, it appears this person meets level of care for purposes of [place] payment. OBRA: It appears this person does not need an OBRA Level II assessment. Submitter Information Form Type PAS Submitter First and Last Name Caridad Dorsey Direct Agency [facility] [address] [place] [address] [place] [address] Is your Agency outside [place]? Person Being Admitted to Nursing Facility Legal first name Matt Last name Stephanie Date of 1980 Age 43 Gender Male Marital Status N= Never Race A = B = Black or N = or Alaskan [place] P = [place] or W = White U = Unable to Determine Ethnicity Not / Currently living with: 01 Living Alone Planned living with 04 Living in Congregate Setting Housing Type Home or apartment, including assisted living (09) Mailing Address [address] [place] [address] Zip [facility] [address] [facility] Medical Information Reason for nursing facility admission: [...] facility the person will admit to?Yes Provider [facility] Nursing Facility Nursing Facility Service Type Senior Living [address] If your provider is not listed [...] follow-up. Did not ask * 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, ENVIRONMENTAL ANALYST, ASSISTANT COUNSEL - 11/24/2023 1:43 PM CDT SURGERY PROGRESS NOTE--SILO ERECTOR Stephanie Low : 1980 Sex: male SIGNIFICANT [...] for discharge. Planning on discharge today to [facility] pending insurance approval. PLAN: Neuro/Pain [...] Trend WBCs and fever Skin/Wounds: Perineal debridement yczf-bpa-tb-dry dressings with Vashe; Left hallux amputation -Betadine with 4 x 4 DVT prophylaxis: Lovenox and SCDs Weight Bearing: Heel touch WB in surgical shoe. On the LLW Activity: Ad celia PT/OT: Appreciate Recs Disposition: [facility] on 11/24/23 pending insurance authorization 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 APRN, PATRICIA, 11/24/2023 1:43 PM [facility] Department of Surgery Pager: via telemediq I have spent 30 minutes with this patient today in which greater than 50% of this time was spent incounseling/coordination of care regarding in patient care, review of imaging/labs, chart review andconsultant recommendations. Dictation Disclaimer: Some notes are completed with voice-recognition dictation software. Errors are generally corrected in real time. Please contact me via [email or web address] staff message if you note any errors [...] () of patient departure: 11/25/2023@1030 Destination: [address] [facility] Type of ride: [employer] #conformation [id number] Transportation vendor of ride (choose one below):* [...] Clinical Coordinators will be informed via a TelBufferq page. PCS form was completed in Progress [...] sex Attending provider: Zac Churchill MD Insurance: [facility] Secondary insurance: [employer] Height: Height: 180.3 cm (5' [...] mgmt/ADL: 18 minutes Chayo Townsend OTR/L Pager: [facility] OT Department Problem: Loss of Willacy With ADLs, Risk for Goal: Will complete lower body dressing Description: Patient will complete lower body dressing with Modified Willacy (6). Outcome: In progress Goal: Will toilet self Description: Patient will toilet self with Modified Willacy (6). Outcome: In progress * Lior Azul [...] Selected Services Address Phone Fax Patient Preferred [facility] Selected Senior Living [address] [facility] [phone] -- Internal Comment last updated by Lior Azul 11/24/2023 0805 Pending prior auth. Lior Azul, 11/24/2023 8:05 AM Received VM saying they would accept . LVM saying we would accept bed.. Caridad Dorsey, 11/24/2023 7:50 AM Admissions is currently reviewing .Caridad Dorsey, 11/23/2023 9:31 AM No bd available until next week. Caridad Dorsey, 11/18/2023 8:34 AM [facility] ([facility] Accepted N/A [address] [facility] [id number] -- Internal Comment last updated by Lior Azul 11/24/2023 0840 They can offer us a bed here but we already found one in [place]. Lior Azul, 11/24/2023 8:40 AM [facility] Pending - Request Sent N/A [address] [facility] [address] [phone] -- Internal Comment last updated by Caridad Dorsey 11/23/2023 0937 LVM for admissions .Caridad Dorsey, 11/23/2023 9:37 AM [facility] Declined Current smoking, Bariatric N/A [address] [facility] [address] [phone] -- The [place], A [place] [facility] Declined Distance N/A [address] [address] [phone] -- Internal Comment last updated by Lior Azul 11/22/2023 1213 This is too far from where patient lives. Lior Azul, 11/22/2023 12:18 PM Sent e mail to Allie .Caridad Dorsey, 11/22/2023 8:10 AM LVM for admissions .Caridad Dorsey, 11/19/2023 7:44 AM Sent email to Missy.Caridad Dorsey, 11/17/2023 2:24 PM [facility] Declined No Contract with Patient's Insurance Carrier N/A [address] [place] [address] [phone] -- [facility] Declined Current smoking, Acuity too high [place] [address] [facility] [address] [phone] -- Internal Comment last updated by Caridad Dorsey 11/18/2023 0831 LVM for admissions.Caridad Dorsey, 11/18/2023 8:31 AM [facility], [place] [facility] Declined Bed not available N/A [address] [facility] [address] [phone] -- Internal Comment last updated by Lior Azul 11/23/2023 1416 Looking for a bed in the [facility] .Caridad Dorsey, 11/23/2023 9:35 AM LVM for admissions.Caridad Dorsey, 11/19/2023 8:17 AM LVM for admissions.Caridad Dorsey, 11/18/2023 8:37 AM [facility] Declined Bed not available N/A [address] [facility] [address] [phone] -- The [place] [facility], A [place] [facility] Declined Bed not available N/A [address] [facility] [address] [phone] -- [facility], A [place] [facility] Declined Bed not available N/A [address] [facility] [address] [phone] -- Home Medical Care No active coordination exists for this encounter. * Jsoe Castelan, JAROD, APTRICIA - 11/23/2023 3:06 PM CDT SURGERY PROGRESS [...] Trend WBCs and fever Skin/Wounds: Perineal debridement yuta-utn-dd-dry dressings with Vashe; Left hallux amputation -Betadine with 4 x 4 DVT prophylaxis: Lovenox and SCDs Weight Bearing: Heel touch WB in surgical shoe. On the LLW Activity: Ad celia PT/OT: Appreciate Recs Disposition: Postacute placement recommended-care management and social work looking for a TCU. 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 APRN, PATRICIA, 11/23/2023 3:06 PM [facility] Department of Surgery Pager: via telemediq I have spent 30 minutes with this patient today in which greater than 50% of this time was spent incounseling/coordination of care regarding in patient care, review of imaging/labs, chart review andconsultant recommendations. Dictation Disclaimer: Some notes are completed with voice-recognition dictation software. Errors are generally corrected in real time. Please contact me via [email or web address] staff message if you note any errors [...] Selected Services Address Phone Fax Patient Preferred [facility] Pending - Request Sent N/A [address] [facility] [phone] -- Internal Comment last updated by Caridad Dorsey 11/23/2023 0931 Admissions is currently reviewing .Caridad Dorsey, 11/23/2023 9:31 AM No bd available until next week. Caridad Dorsey, 11/18/2023 8:34 AM [facility], [facility] [place] [facility] Pending - Request Sent N/A [address] [facility] [address] [phone] -- Internal Comment last updated by Lior Azul 11/23/2023 1415 Looking for a bed in the [facility] .Caridad Dorsey, 11/23/2023 9:35 AM LVM for admissions.Caridad Dorsey, 11/19/2023 8:17 AM LVM for admissions.Caridad Dorsey, 11/18/2023 8:37 AM [facility] Pending - Request Sent N/A [address] [facility] [address] [phone] -- Internal Comment last updated by Caridad Dorsey 11/23/2023 0937 LVM for admissions .Caridad Dorsey, 11/23/2023 9:37 AM [facility] Declined Current smoking, Bariatric N/A [address] [facility] [address] [phone] -- [facility], [facility] [place] [facility] Declined Distance N/A [address] [address] [phone] -- Internal Comment last updated by Lior Azul 11/22/2023 1218 This is too far from where patient lives. Lior Azul, 11/22/2023 12:18 PM Sent e mail to Allie .Caridad Dorsey, 11/22/2023 8:10 AM LVM for admissions .Caridad Dorsey, 11/19/2023 7:44 AM Sent email to Missy.Caridad Dorsey, 11/17/2023 2:24 PM [facility] Declined No Contract with Patient's Insurance Carrier N/A [address] [place] [address] [phone] -- [facility] Declined Current smoking, Acuity too high N/A [address] [facility] [address] [phone] -- Internal Comment last updated by Caridad Dorsey 11/18/2023 0831 LVM for admissions.Caridad Dorsey, 11/18/2023 8:31 AM [facility] Declined Bed not available N/A [address] [facility] [address] [phone] -- [facility] Declined Bed not available N/A [address] [facility] [phone] -- The [facility], A [place] [facility] Declined Bed not available N/A [address] [facility] [address] [phone] -- Home Medical Care No active coordination exists for this encounter. * Caridad Dorsey - 11/23/2023 9:42 AM CDT Continued Care and Services - Admitted Since 11/10/2023 Destination Service Provider Request Status Selected Services Address Phone Fax Patient Preferred [facility] Pending - Request Sent N/A [address] [facility] [phone] -- Internal Comment last updated by Caridad Dorsey 11/23/2023 0931 Admissions is currently reviewing .Caridad Dorsey, 11/23/2023 9:31 AM No bd available until next week. Caridad Dorsey, 11/18/2023 8:34 AM [facility], A [place] [facility] Pending - Request Sent N/A [address] [facility] [address] [phone] -- Internal Comment last updated by Caridad Dorsey 11/23/2023 0935 Looking for a bed in the [facility] .Caridad Dorsey, 11/23/2023 9:35 AM LVM for admissions.Caridad Dorsey, 11/19/2023 8:17 AM LVM for admissions.Caridad Dorsey, 11/18/2023 8:[address] [place] [facility], [facility] [place] [facility] Pending - Request Sent N/A [address] [facility] [phone] -- [facility] Pending - Request Sent N/A [address] [facility] [address] [phone] -- Internal Comment last updated by Caridad Dorsey 11/23/2023 0937 LVM for admissions .Caridad Dorsey, 11/23/2023 9:37 AM [facility] Declined Current smoking, Bariatric N/A [address] [facility] [address] [phone] -- The [facility], [facility] [place] [facility] Declined Distance N/A [address] [address] [phone] -- Internal Comment last updated by Lior Azul 11/22/2023 1218 This is too far from where patient lives. Lior Azul, 11/22/2023 12:18 PM Sent e mail to Allie .Caridad Dorsey, 11/22/2023 8:10 AM LVM for admissions .Caridad Dorsey, 11/19/2023 7:44 AM Sent email to Missy.Caridad Dorsey, 11/17/2023 2:24 PM [facility] Declined No Contract with Patient's Insurance Carrier N/A [address] [place] [address] [phone] -- [facility] Declined Current smoking, [place] [address] [facility] [address] [phone] -- Internal Comment last updated by Caridad Dorsey 11/18/2023 0831 LVM for admissions.Caridad Dorsey, 11/18/2023 8:31 AM [facility] Declined Bed not available N/A [address] [facility] [address] [phone] -- The [facility], [facility] Declined Bed not available N/A [address] [facility] [address] [phone] -- Home Medical Care No active coordination [...] mgmt/ADL: 13 minutes Chayo Townsend OTR/L Pager: [facility] OT Department Problem: Loss of Willacy With ADLs, Risk for Goal: Will complete lower body dressing Description: Patient will complete lower body dressing with Modified Willacy (6). Outcome: In progress Goal: Will toilet self Description: Patient will toilet self with Modified Willacy (6). Outcome: In progress * KassyArdenABHINAV - [...] gait with or without AD, static/dynamic balance. [employer] Appropriate: Yes Arden Elena PTA 11/22/2023 Pager: [facility] PT Dept Problem: Decreased Transfer Skills Goal: Patient will transfer sit to/from stand Description: Patient will transfer sit to/from stand while Heel touch WB on L LE in post-op shoe with (6) Modified Willacy in order to mobilize in home by [...] 12:09 PM CDTSummary: DC Planning DC Planning [facility] SABINE Hartman - O: [phone] Assisted RN is calling her asking her when [...] agrees with sending referrals to SNFs around [place]. He wants CC to let sister know [...] bedtime. -Continue Amlodipine 10mg Daily - Resume [employer] losartan 50mg PO Daily when Cr is closer to baseline (1.0) Acute Kidney Injury Monitor urine output and BMP closely. 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 Would give [...] the patient on the date of the policy writer sales's note. I discussed with the policy writer sales of the note and agree with their findings and plan documented in the policy writer sales's note from above. Any revisions by me [...] bedtime. -Continue Amlodipine 10mg Daily - Resume [employer] losartan 50mg PO Daily when Cr is closer to baseline (1.0) Acute Kidney Injury Monitor urine output and BMP closely. 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 Would give [...] admitted on 11/10/2023 as a transfer from [facility] for emergent surgical debridement [...] are above goal here (FPG goal <150). [employer] lantus 30 units BID, lispro 10 units TID AC, metformin 500mg BID. A1c 6.8% on 07/27/23. Complications include h/o diabetes related infections. Hold [employer] metformin while admitted. Continue statin. 11/12 got 25u lantus (<0.2/kg) and 35u aspart. Likely needs increase in insulin dosing but also use caution with impaired renal clearance / worsening renal function and this can contribute to hypoglycemia. Serum glucose levels are slightly improved on [employer] regimen of 30 U daily Lantus. Serum [...] by facility provider. Paranoid schizophrenia - restarted [employer] meds (escitalopram 20mg qhs, trazodone 50mg qhs, [...] outpatient on 11/25 or 2 Resume patient's [employer] losartan 50mg PO daily when Cr is closer to baseline (approx 1.0) Strict I/O, monitor UOP. Avoid nephrotoxins (IV contrast, NSAIDs), renal dosing of meds Medicine service will sign off. Please page Hospitalist Consult A on Girl Meets Dress for any further issues or questions. SUBJECTIVE/Events of Past 24 Hours: Hospital Day: 11 Mr Low feels well today. Denies any symptoms. Pain controlled. He believes postoperative dressing changes can be done by his current half-way; I encouraged him to discuss that with his primary team and case resource manager. Amenable to plan, looking forward to [...] standpoint. Patient follows with Dr Hayden in [facility] and would prefer to follow up with him upon discharge. We are happy to schedule anappointment with patient if he wishes to follow up with our team. Please page process control operator resident with questions. Interval History Patient [...] and BMP closely. 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 Would give [...] are above goal here (FPG goal <150). [employer] lantus 30 units BID, lispro 10 units TID AC, metformin 500mg BID. A1c 6.8% on 07/27/23. Complications include h/o diabetes related infections. Hold [employer] metformin while admitted. Continue statin. 11/12 got 25u lantus (<0.2/kg) and 35u aspart. Likely needs increase in insulin dosing but also use caution with impaired renal clearance / worsening renal function and this can contribute to hypoglycemia. Serum glucose levels are slightly improved on [employer] regimen of 30 U daily Lantus. Serum glucose levels better controlled today and more consistent in the 126 - 165 range. Continue current dosing for now with monitoring of serum glucose levels. Paranoid schizophrenia - restarted [employer] meds (escitalopram 20mg qhs, trazodone 50mg qhs, prazosin 1mg qhs). Given paliperidone (Invega) IM on 11/12/23 (due every 4 weeks for schizophrenia) Tobacco use - offer nicotine patches, gum, lozenges while inpatient H/o TBI Obesity RECOMMENDATIONS 11/15/23 Continue Lantus to 30 U qd Continuing amlodipine, monitoring BP to determine if second agent needed with recent improvement Resume patient's [employer] losartan 50mg PO daily when Cr is closer to baseline (likely ~1.0) Strict I/O, monitor UOP. Avoid nephrotoxins (IV contrast, NSAIDs), renal dosing of meds Medicine service will sign off tomorrow 11/20 if clinical stability/improvement continues. Please page Hospitalist Consult A on Girl Meets Dress for any further issues or questions. SUBJECTIVE/Events [...] today 11/19. Labs reviewed Scar Leyva MD [facility] Medicine * Scar Leyva MD - 11/19/2023 3:51 PM CDT MEDICINE CONSULT FOLLOW-UP- STAFF Matt Low : 1980 Sex: male Patient Summary: Matt Low is a 43 y.o. male with PMH of T2DM, prior TMA or right foot, HTN, paranoid schizophrenia, situs inversus, tobacco use, obesity, admitted on 11/10/2023 as a transfer from [facility] for emergent surgical debridement [...] are above goal here (FPG goal <150). [employer] lantus 30 units BID, lispro 10 units TID AC, metformin 500mg BID. A1c 6.8% on 07/27/23. Complications include h/o diabetes related infections. Hold [employer] metformin while admitted. Continue statin. 11/12 got 25u lantus (<0.2/kg) and 35u aspart. Likely needs increase in insulin dosing but also use caution with impaired renal clearance / worsening renal function and this can contribute to hypoglycemia. Serum glucose levels are slightly improved on [employer] regimen of 30 U daily Lantus. One reading of 69 yesterday - unclear if patient had any symptoms. Continue current dosing for now with monitoring of serum glucose levels. Paranoid schizophrenia - restarted [employer] meds (escitalopram 20mg qhs, trazodone 50mg qhs, prazosin 1mg qhs). Given paliperidone (Invega) IM on 11/12/23 (due every 4 weeks for schizophrenia) Tobacco use - offer nicotine patches, gum, lozenges while inpatient H/o TBI Obesity RECOMMENDATIONS 11/15/23 Continue Lantus to 30 U qd Continuing amlodipine, monitoring BP to determine if second agent needed with recent improvement Resume patient's [employer] losartan 50mg PO daily when Cr is closer to baseline (likely ~1.0) Strict I/O, monitor UOP. Avoid nephrotoxins (IV contrast, NSAIDs), renal dosing of meds Medicine will continue to follow. Please page Hospitalist Consult A on Girl Meets [employer] for any further issues or questions. SUBJECTIVE/Events [...] today 11/18. Labs reviewed Scar Leyva MD [facility] Medicine * PhillipKenrick Speedy Taylor, PT - 11/19/2023 1:21 PM CDT Physical Therapy Patient not seen today d/t prioritisation/time constraints. Kenrick Fisher, PT License #[id number] PT Tel #: [phone] On [email or web address] or [employer] * Nicola Vasquez MD - 11/19/2023 11:54 [...] 2/2 uncontrolled Td2m. 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 male pmhx of T2DM with prior right toe amputations transferred from [facility] forFournier's gangrene, s/p I&D x 2, currently [...] 1 of 2 Imaging results: Reviewed in [facility] Gulshan José MD ID fellow, [...] RN - 11/19/2023 10:39 AM CDT 11/19/23 [facility] Rapid Rounds Attendance Charge nurse;manager action;experimental worker Expected Discharge Disposition SNF (TCU) Today [...] each: Self care/Home mgmt/ADL: 23 minutes EDWIN Alvraado/Brian Pager: [facility] OT Department Problem: Loss of Willacy With ADLs, Risk for Goal: Will complete lower body dressing Description: Patient will complete lower body dressing with Modified Willacy (6). Outcome: In progress Goal: Will toilet self Description: Patient will toilet self with Modified Willacy (6). Outcome: In progress * Paula Black [...] standpoint. Patient follows with Dr Hayden in [facility] and would prefer to follow up with him upon discharge. We are happy to schedule anappointment with patient if he wishes to follow up with our team. Please page process control operator resident with questions. Interval History Patient [...] care/Home mgmt/ADL: 35 minutes EDWIN Alvarado/Brian Pager: [facility] OT Department Problem: Loss of Willacy With ADLs, Risk for Goal: Will complete lower body dressing Description: Patient will complete lower body dressing with Modified Willacy (6). Outcome: In progress Goal: Will toilet self Description: Patient will toilet self with Modified Willacy (6). Outcome: In progress * Kenrick Fisher Chi, PT - 11/18/2023 3:23 PM CDT Problem: Decreased Transfer Skills Goal: Patient will transfer sit to/from stand Description: Patient will transfer sit to/from stand while Heel touch WB on L LE in post-op shoe with (6) Modified Willacy in order to mobilize in home by [...] that he lives in an [facility] a 1 floor building. Has his own room w a toilet inside. He shares bathing facilities wother residents in the house. He eats his meals and snacks in the dining room. He has NO stairs to negotiate. O:Engineering Associate Used: None needed Mental Status Mental Status: [...] remain heel touch WB on L LE. [employer] Appropriate: Yes Kenrick Fisher, PT 11/18/2023 Pager: [...] are above goal here (FPG goal <150). [employer] lantus 30 units BID, lispro 10 units TID AC, metformin 500mg BID. A1c 6.8% on 07/27/23. Complications include h/o diabetes related infections. Hold [employer] metformin while admitted. Continue statin. 11/12 got 25u lantus (<0.2/kg) and 35u aspart. Likely needs increase in insulin dosing but also use caution with impaired renal clearance / worsening renal function and this can contribute to hypoglycemia. Serum glucose levels are slightly improved today with increase in Lantus to 28 U; increasing today to [employer] dose of 30 U Lantus daily. Paranoid schizophrenia - restarted [employer] meds (escitalopram 20mg qhs, trazodone 50mg qhs, prazosin 1mg qhs). Given paliperidone (Invega) IM on 11/12/23 (due every 4 weeks for schizophrenia) Tobacco use - offer nicotine patches, gum, lozenges while inpatient H/o TBI Obesity RECOMMENDATIONS 11/15/23 Increased Lantus to 30 U qd Continuing amlodipine, carvedilol discontinued as patient noted some dizziness and BP now near goal. Resume patient's [employer] losartan 50mg PO daily when Cr is [...] home tomorrow, or potentially to a facility (?[facility]?) for extra cares and assistance OBJECTIVE: [...] today 11/17. Labs reviewed Scar Leyva MD [facility] Medicine * Jabari Colby [...] Services Address Phone Fax Patient Preferred [facility], A [place] Facility Pending - Request Sent N/A [address] [address] [phone] -- Internal Comment last updated by Caridad Dorsey 11/19/2023 0745 LVM for admissions .Caridad Dorsey, 11/19/2023 7:44 AM Sent email to Missy.Caridad Dorsey, 11/17/2023 2:24 PM Nena Ernandez, A [place] Facility Pending - Request Sent N/A [address] [facility] [address] [phone] -- Internal Comment last updated by Caridad Dorsey 11/19/2023 0818 LVM for admissions.Caridad Dorsey, 11/19/2023 8:17 AM LVM for admissions.Caridad Dorsey, 11/18/2023 8:37 AM [facility] Declined N/A [address] [facility] [address] [phone] -- [facility] Declined No Contract with Patient's Insurance Carrier N/A [address] [place] [address] [phone] -- [facility] Declined Current smoking, Acuity too high N/A [address] [facility] [address] [phone] -- Internal Comment last updated by Caridad Dorsey 11/18/2023 0831 LVM for admissions.Caridad Dorsey, 11/18/2023 8:31 AM [facility] Declined Bed not available N/A [id number] [facility] [id number] -- Internal Comment last updated by Caridad Dorsey 11/18/2023 0834 No bd available until next week. Caridad Dorsey, 11/18/2023 8:34 AM [facility] Declined Bed not available N/A [address] [facility] [address] [phone] -- Home Medical Care No active coordination exists for this encounter. 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 male pmhx of T2DM with prior right toe amputations transferred from [facility] forurnier's gangrene, s/p I&D x 2, currently [...] 11/17/[address] Mullen-operative note available in [facility] Seen this a.m. and was [...] 1 of 2 Imaging results: Reviewed in [facility] Gulshan José MD, 11/18/2023 8:[address] Daomn FACULTY NOTE I saw and evaluated Matt [...] standpoint. Patient follows with Dr Hayden in [facility] and would prefer to follow up with him upon discharge. We are happy to schedule anappointment with patient if he wishes to follow up with our team. Please page process control operator resident with questions. Patient was discussed with process control operator staff, Interval History Patient was seen [...] Abdomen soft, non-tender, non-distended. Labs / Imaging: [facility] Lab Results Component Value Date/Time [...] urine output closely. 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 Would give [...] admitted on 11/10/2023 as a transfer from [facility] for emergent surgical debridement [...] renal dysfunction, though UOP is acceptable. Holding [employer] losartan 50mg daily. Started amlodipine 10 mg [...] are above goal here (FPG goal <150). [employer] lantus 30 units BID, lispro 10 units TID AC, metformin 500mg BID. A1c 6.8% on 07/27/23. Complications include h/o diabetes related infections. Hold [employer] metformin while admitted. Continue statin. 11/12 got [...] and diet improve. Paranoid schizophrenia - restarted [employer] meds (escitalopram 20mg qhs, trazodone 50mg qhs, prazosin 1mg qhs). Given paliperidone (Invega) IM on 11/12/23 (due every 4 weeks for schizophrenia) Tobacco use - offer nicotine patches, gum, lozenges while inpatient H/o TBI Obesity RECOMMENDATIONS 11/15/23 Continue Lantus 28 U daily for now; may need to continue titration as diet and renal function improve Began carvedilol and amlodipine as above Resume patient's [employer] losartan 50mg PO daily when Cr is closer to baseline (likely ~1.0) Switching to IV PRN hydralazine for more aggressive BP control Strict I/O, monitor UOP. Avoid nephrotoxins (IV contrast, NSAIDs), renal dosing of meds Medicine will continue to follow. Please page Hospitalist Consult A on Girl Meets [employer] for any further issues or questions. SUBJECTIVE/Events [...] check back tomorrow. Shannan Partida OTR/Brian Pager: [phone] * Mabel Mathews RN - 11/17/2023 11:27 AM CDT TRANSFER IN NOTE D: Patient transferred in to STNU 2 from PACU at 1100. Patient condition on arrival: Stable, a/o X4, VSS, on RA, . Patient Belonging 11/10/2023 1440 Reason for Inventory: ED/APS Admission Patient or family informed of Patient Valuables and Belongings Policy (#[id number]): Due to patient condition, [facility] staff will inventory and [...] 11/17/23 1034 Rapid Rounds Attendance Physician;Charge nurse;manager action;experimental worker;Bedside nurse Expected Discharge Disposition SNF (TCU for wound care) Today we still await: Procedure (Comment) (toe amputation today) Case Management Discharge Milestones Documentation CM Assessment Completed? Yes Patient/Family agree w/DC plan? Yes Transportation Plan WC/Taxi/Stretcher Prior Auth/Pre-Admit Screen (!) Not completed 11/17/23 1034 Rapid Rounds Attendance Physician;Charge nurse;manager action;experimental worker;Bedside nurse Expected Discharge Disposition SNF (TCU for wound care) Today we still await: Procedure (Comment) (toe amputation today) Case Management Discharge Milestones Documentation CM Assessment Completed? Yes Patient/Family agree w/DC plan? Yes Transportation Plan WC/Taxi/Stretcher Prior Auth/Pre-Admit Screen (!) Not completed Pt will DC to TCU, as his half-way cannot do the daily dressing changes to [...] discharge. Patient follows with Dr Hayden in [facility] CHIEF COMPLAINT: Immediate postop HISTORY OF [...] urine output closely. 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 Would give [...] Fisher, PT License #[id number] PT Tel #: [phone] On [email or web address] or [employer] * Nico Hogue MD - 11/16/2023 9:49 [...] Actinomyces species Medicine consult (11/14): Resume patient's [employer] losartan 50mg PO daily when Cr is [...] urine output closely. 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 Would give [...] are above goal here (FPG goal <150). [employer] lantus 30 units BID, lispro 10 units TID AC, metformin 500mg BID. A1c 6.8% on 07/27/23. Complications include h/o diabetes related infections. Hold [employer] metformin while admitted. Continue statin. 11/12 got [...] renal dysfunction, though UOP is acceptable. Holding [employer] losartan 50mg daily. Agree with prn hydralazine but would changeto PO. Could start new agent (such as amlodipine) but patient should ultimately resume ARB once renal function is improved Paranoid schizophrenia - restarted [employer] meds (escitalopram 20mg qhs, trazodone 50mg qhs, prazosin 1mg qhs). Given paliperidone (Invega) IM on 11/12/23 (due every 4 weeks for schizophrenia) Tobacco use - offer nicotine patches, gum, lozenges while inpatient H/o TBI Obesity RECOMMENDATIONS 11/15/23 Continue Lantus 28 U daily for now; may need to continue titration as diet and Resume patient's [employer] losartan 50mg PO daily when Cr is [...] follow. Please page Hospitalist Consult A on Girl [employer]ets [employer] for any further issues or questions. SUBJECTIVE/Events [...] brief walk in hallway- pt tends to sisal picker walker versus push- does not use [...] Pager: Lisa OT Department Problem: Loss of Willacy With ADLs, Risk for Goal: Will complete lower body dressing Description: Patient will complete lower body dressing with Modified Willacy (6). 11/15/2023 1400 by Chayo Townsend OTR/L Outcome: In progress 11/15/2023 1357 by Chayo Townsend OTR/L Outcome: In progress Goal: Will toilet self Description: Patient will toilet self with Modified Willacy (6). 11/15/2023 1400 by Chayo Townsend OTR/L Outcome: In progress 11/15/2023 1357 by Chayo Townsend OTR/Brian Outcome: In progress * Kenrick Fisher Chi, PT - 11/15/2023 11:23 AM CDT Images from the original note were not included. Problem: Decreased Transfer Skills Goal: Patient will transfer sit to/from stand Description: Patient will transfer sit to/from stand with (6) Modified Willacy in order to mobilize in home by 11/28/23. Outcome: In progress Problem: Decreased Ambulatory Skills Goal: Improve gait Description: Ambulate 100 meters using No assistive devices with (6) Modified Willacy in orderto mobilize in home and community [...] transfer supine to/from sit with (6) Modified Willacy in order to mobilize in/out of bed by 11/28/23. Outcome: Met Physical Therapy Progress Note PT Discharge Recommendations Discharge Recommendations: Safety risk for discharge home today. Barriers to discharge to home/community: Insufficient activity tolerance;Pain;Caregiver availability not yet confirmed. Would be good if someone from the treatment team calls his [facility] to see how much help he can [...] sometimes does not do stairs, at his [facility]. Ambulated independently without an AD. Said hiswalking [...] and isn't able to get help from [facility] staff for mobility, then recommend he go to a rehab facility for continued PT. Patient seemed to indicate today that he didn't feel it was a good idea for him to d/c directly home. Note: Patient seems off mentation apblo. Not sure if it's b/c of his paranoid schizophrenia vs pt having had delirium, etc... P: Continue to see patient 4-5x/wk depending on census/prioritisation. Next Visit: Assess sit/stand from EOB w bed set at its lowest height. Try Tinetti vs [place]. ContinueGT w 2ww vs try SEC vs try no AD. Try stairs eventually? [employer] Appropriate: Yes Kenrick Fisher, PT 11/15/2023 Pager: [facility] PT Dept * Jay Ibanez MD - [...] Intake/Output Summary (Last 24 hours) at 11/15/2023 0924 Last data filed at 11/15/2023 0640 Gross [...] Actinomyces species Medicine consult (11/14): Resume patient's [employer] losartan 50mg PO daily when Cr is [...] urine output closely. 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 Would give dose here if due and if available on formulary. Tobacco use - offer nicotine patches, gum, lozenges while inpatient - cessation counseling as able Neuro/Pain Control: Multimodal -Scheduled: Tylenol, Gabapentin, cyclobenzaprine, Lexapro, Trazodone -PRN: Hydromorphone Skin/Wounds: Dressing changed (11/13) DVT prophylaxis: SCDs, Lovenox 40 BID (11/11) Weight Bearing: WBAT Activity: Ad celia/with assist Disposition: Nico Murary MD, 11/15/2023 9:47 AM PGY-1 General Surgery FACULTY NOTE I saw and evaluated the patient on the date of the resident's note. I discussed with the resident and agree with the resident???s findings and plan documented in the resident???s note from above. Anyrevisions by me are documented. Jay Ibanez MD, 11/16/2023 12:32 PM * Dominga Crawford LGSW - 11/15/2023 9:39 AM CDT Astronautical Engineer Progress Note Spoke to SABINE Hartman at [facility], where patient resides. Informed her pt will likely be ready for discharge towards the end of the week per MDR. Asked if they are able to assist with daily wound care. Unfortunately facility cannot help with this. The facility helps with med management, meals, housekeeping, and laundry. May have to explore options for home health or TCU for woundcare. [facility] - [phone] opt 3. Dominga Crawford LGSW, 11/15/2023 2:59 [...] pt may be able to return to half-way given participation with PT on 11/13 but [...] admitted on 11/10/2023 as a transfer from [facility] for emergent surgical debridement [...] are above goal here (FPG goal <150). [employer] lantus 30 units BID, lispro 10 units TID AC, metformin 500mg BID. A1c 6.8% on 07/27/23. Complications include h/o diabetes related infections. Hold [employer] metformin while admitted. Continue statin. 11/12 got 25u lantus (<0.2/kg) and 35u aspart. Likely needs increase in insulin dosing but also use caution with impaired renal clearance / worsening renal function and this can contribute to hypoglycemia. HTN - above goal overnight. ARB is being held. Also may be hypervolemic given renal dysfunction, though UOP is acceptable. Holding [employer] losartan 50mg daily. Agree with prn hydralazine but would changeto PO. Could start new agent (such as amlodipine) but patient should ultimately resume ARB once renal function is improved Paranoid schizophrenia - restarted [employer] meds (escitalopram 20mg qhs, trazodone 50mg qhs, prazosin 1mg qhs). Given paliperidone (Invega) IM on 11/12/23 (due every 4 weeks for schizophrenia) Tobacco use - offer nicotine patches, gum, lozenges while inpatient H/o TBI Obesity RECOMMENDATIONS 11/15/23 Increase lantus to 28 units q24h Resume patient's [employer] losartan 50mg PO daily when Cr is [...] - 11/14/2023 2:55 PM CDT SURGERY PROGRESS NOTE--SILO ERECTOR Matt M Devante : 1980 Sex: male [...] urine output closely. 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 Would give [...] assist Disposition: CHRIS Cordero Ma MS3 11/14/2023 [facility] Department of Surgery Pager: via [...] admitted on 11/10/2023 as a transfer from [facility] for emergent surgical debridement [...] are above goal here (FPG goal <150). [employer] lantus 30 units BID, lispro 10 units TID AC, metformin 500mg BID. A1c 6.8% on 07/27/23. Complications include h/o diabetes related infections. Hold [employer] metformin while admitted. Continue statin. 11/12 got 25u lantus (<0.2/kg) and 35u aspart. Likely needs increase in insulin dosing but also use caution with impaired renal clearance / worsening renal function and this can contribute to hypoglycemia. HTN - above goal overnight. ARB is being held. Also may be hypervolemic given renal dysfunction, though UOP is acceptable. Holding [employer] losartan 50mg daily. Agree with prn hydralazine but would changeto PO. Could start new agent (such as amlodipine) but patient should ultimately resume ARB once renal function is improved Paranoid schizophrenia - restarted [employer] meds (escitalopram 20mg qhs, trazodone 50mg qhs, [...] recent) Autumn Lamar PharmD 11/13/2023 15:25 Pager: (NewsBreak) * Nico Hogue MD - 11/13/2023 8:25 [...] epidermidis Actinomyces species 11/10/2023171211/12/2023 1417 ANAEROBE CULTURE [[id number]] (Abnormal) Tissue from Perineal 2:Perineal tissue Preliminary result Component Value Preliminary Report Positive Culture Many mixed anaerobes present. Culture in progress. POS 11/10/2023 17111/12/2023 1441 TISSUE CULTURE:INCLUDES GRAM STAIN [[id number]] (Abnormal) Tissue from Perineal 2:Perineal tissue Preliminary [...] in clusters. POS 11/10/2023171111/12/2023 1416 ANAEROBE CULTURE [[id number]] (Abnormal) Swab from Perineal 1: Perineal tissue swab Preliminary result Component Value Preliminary Report Moderate Anaerococcus vaginalis isolated. Culture in progress. POS Organism ANAEROCOCCUS VAGINALIS POS 11/10/2023171111/12/2023 1534 WOUND CULTURE:GRAM STAIN OPTIONAL [[id number]] (Abnormal) Swab from Perineal 1: Perineal tissue [...] NPO with excellent blood sugarcontrol. 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 Would give [...] RECOMMENDATIONS: Demar's Gangrene Necrotizing fasciitis Transferred from [facility] for scrotal swelling, pain, concern for Demar's [...] NPO with excellent blood sugarcontrol. 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 Would give dose here if due and if available on formulary. Tobacco use - offer nicotine patches, gum, lozenges while inpatient - cessation counseling as able (pt unable to engage today) H/o TBI Obesity PLAN: Neuro/Pain Control: Multimodal Scheduled: Tylenol, Gabapentin, cyclobenzaprine PRN: Hydromorphone CV: Monitor blood pressure and pulse and intervene as needed. Restart ferry boat captain rosuvastatin 10mg qHS Pulm: Encourage [...] Disposition: Nico Murray MD, 11/13/2023 8:25 AM [facility] Department of Surgery Pager: via [...] Type 2 DM with neuropathy, retinopathy - [employer] lantus 30 units BID, lispro 10 units TID AC, [id number] BID. A1c 6.8% on 07/27/23. Complications include h/o diabetes related infections. Hold [employer] metformin while admitted. Continue statin. HTN - mostly at goal off antihypertensives. Holding [employer] losartan 50mg daily Paranoid schizophrenia - restarted [employer] meds (escitalopram 20mg qhs, trazodone 50mg qhs, [...] follow. Please page Hospitalist Consult A on Girl Meets Dress for any further issues or questions. SUBJECTIVE/Events [...] note were not included. PHARMACY VANCOMYCIN NOTE aMtt Low : 1980 Sex: male Assessment: Interpretation [...] - 11/12/2023 1:00 PM CDT 11/12/23 1254 Engineering Associate Used. Engineering Associate Used None needed (interview conducted with AL staff) Social Information Living Situation shelter Facility Admitted From hospital (Admitted from [facility]) Name of facility [facility] Patient medically appropriate to transfer back to outside hospital? No Patient Identified Support System AL staff Services Receiving BURGLAR ALARM MECHANIC / Skilled Services;Case Management;Waivered services (see comment) Complex Medical Needs Other (see comment) Transportation Used for Discharge wound care Safety Concerns None Behavioral Health Concerns None Patient Family Goals Patient's Discharge Goal back to AL Family's Discharge Goal no family Plan/Interventions Expected Discharge Disposition Assisted Was Patient Choice Provided? No Who was Choice Provided to? Other (comment) (pt will return to [employer] facility when medically stable) Patient Information Verification Verified demographic information, including SSN, Next of Kin, and Guardianship Yes Verified PCP Yes If post-acute placement is needed, have vaccination status needs been addressed? Yes Pt admitted from [facility] after transfer to there from half-way for treatment of Demar's gangrene of perineal area * Nico Hogue MD - 11/12/2023 8:02 AM CDT SURGERY PROGRESS NOTE--SILO ERECTOR Matt Low : 1980 Sex: male SIGNIFICANT [...] Disposition: Nico Murray MD, 11/12/2023 8:03 AM [facility] Department of Surgery Pager: via [...] Comments: RN: Gloria Velez RN Extension #: [phone] * Robert Kruse MDIV - 11/11/2023 1:43 PM CDT SPIRITUAL CARE VISIT SUMMARY Matt Low : 1980 Sex: male LOS: 1 day Reason for visit: Referral Assessment: Pt/family uncertain/anxious/frustrated;Pt/family coping/relieved Intervention: Compassionate support;Facilitate communication;Lead/support spiritual rituals Outcome: Situation assessed;Gratitude expressed;Ritual provided Notes: I met with Matt at bedside during rounds. Matt shared that he wanted a prayer for healing and pentecostal of his health which I offered as requested. He had no other support needs at this time. Plan: Spiritual Care Team is available to support patient and family as needed via number [phone]. Robert Kruse MDIV, 11/11/2023 1:43 PM Number: [phone] * Hannah Boland RT - 11/11/2023 12:40 [...] male D: Matt Low was admitted to [facility] from PACU at 0600 for [place] gangrene [...] informed of Patient Valuables and Belongings Policy (#[id number]): Due to patient condition, [facility] staff will inventory and secure patient valuables Items Needing Securement: Cell phone Cell Phone Secured?: Yes Cell Phone Visually Damaged: Yes Patient Belongings: Clothing Clothing Comments: shirt, 1 shoe, 1 sock, * Gracia Tirado MDIV - 11/10/2023 3:26 PM CDT Bottom Liquor Attendant Stabilization Room Note Matt Low : 1980 Sex: male LOS: 0 days Initial Description: Matt Low with history of gangrene. Pt was responding appropriately to questions. Patient and Family Context: No family present. Pt came from a facility in [place]. Plan: Spiritual Care Team is available to support patient and family as needed via number [phone]. Gracia Tirado MDIV, 11/10/2023 3:27 PM Number: [phone] * Camilla Treviño, PharmD - 11/10/2023 2:38 [...] for 2 days. 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 He has a history of T2DM on 10u long acting insulin three times daily, situs inversus, and TBI several years ago and lives in a half-way. CT at OSH showed gas in perineal [...] the patient on the date of the policy writer sales's note. I discussed with the policy writer sales of the note and agree with their findings and plan documented in the policy writer sales's note from above. Any revisions by me are documented. Zac Churchill MD, 11/15/2023 2:03 PM documented in this encounter Consult Notes * Gala Salinas, PharmD - 11/24/2023 2:22 PM CDTAssociated Order(s): DISCHARGE MED REC FINAL REVIEW BY PHARMACY PHARMACY DISCHARGE NOTE Stephanie Low : 1980 Sex: male Pharmacy service was consulted for review of patient's discharge medications. Assessment: Pertinent points to note: -- [employer] losartan, metformin and ibuprofen all discontinued due to ongoing acute kidney injury. I have reviewed the patient's medications for discharge and have discussed the necessary changes with the provider. Changes have been made and medication list updated and complete. Please page with any questions. Gala Salinas PharmD 11/24/2023 14:22 For questions regarding this note, please contact pharmacist on service at PharmD STN ([facility]ul[facility]) [phone]. If no response within needed timeframe, please contact central pharmacy via phone at [phone]. Planned discharge medications are: Medication List Medications [...] 2 Diabetes Reduced from twice daily dosing [employer], per Medicine recommendations. insulin LISPRO 100 UNIT/ML Kwikpen Commonly known as: HumaLOG KwikPen Inject 6 UNITS subcutaneously 3 times daily before meals. Reduced from 10 units per dose [employer], per Medicine recommendations. Invega Sustenna 156 MG/ML [...] follow. Patient follows with Dr Hayden in [place] [employer] Please page process control operator resident with questions. Patient was seen with process control operator staff, Dr. Black CHIEF COMPLAINT: Left hallux wound HISTORY OF PRESENT ILLNESS: Matt Low is a 43 y.o. male presenting with left hallux necrosis. Patient initially presented to [facility] for concern for foreigners [...] 74.09 Activity Intolerance Z 73.89 PRECAUTIONS Falls Engineering Associate Used: None needed ACTIVITY Up ad Celia [...] Type 2 DM with neuropathy, retinopathy - [employer] lantus 30 units BID, lispro 10 units TID AC, [id number] BID. A1c 6.8% on 07/27/23. Complications include h/o diabetes related infections. Hold [employer] metformin while admitted. Continue statin. HTN - mostly at goal off antihypertensives. Holding [employer] losartan 50mg daily Paranoid schizophrenia - restarted [employer] meds (escitalopram 20mg qhs, trazodone 50mg qhs, prazosin 1mg qhs). Given paliperidone (Invega) IM on 11/12/23 (due every 4 weeks for schizophrenia) Tobacco use - offer nicotine patches, gum, lozenges while inpatient Medical History No past medical history on file. SOCIAL HISTORY Information gathered from: Patient Home: half-way in [place] Prior level of function: independent Baseline Ambulation: [...] Oriented X 3, Alert, and Cooperative, thought [facility] Follows Direction: Yes, 1step OBJECTIVE Initial patient [...] but thought at hospital in [facility]. Anticipate pt will be able to d/c [...] when ready, stairs as able, standing balance. [employer] Appropriate: Yes Participated in goal setting and treatment planning: Patient Agrees with goals and treatment plan: Patient - Yes. Che Garcia, PT 11/14/2023 Pager: [facility] PT Department * Guru Franco MD - 11/13/2023 1:14 PM CDTAssociated Order(s): CONSULT TO INFECTIOUS DISEASE ID-2 NEW CONSULT NOTE Matt Low 1980 male [id number] REASON FOR CONSULT: I was asked to see Matt Low by Zac Churchill regarding Demar's gangrene. ASSESSMENT: 43 y.o. male pmhx of T2DM with prior right toe amputations transferred from [facility] forurnier's gangrene, s/p I&D x 2, currently [...] with prior right toe amputations transferred from [facility] forsotal swelling, pain, concern for Demar's gangrene, also found to have swelling and darkening of left toe consistent with gangrene. Febrile on arrival to 40.1 C, no fever since. WBC 21 on arrival, decreasing. Now s/p I&D of perineal nec fasc 11/09, sharp excisional debridement. Return to [facility] on 11/10. Per OR note: Sharp excisional [...] cx Imaging results: Reviewed in [facility], Guru Swan MD, 11/13/2023 1:14 PM FACULTY [...] date) Patient is living in a/an : half-way Prior Level of Function: ADLs/IADLs: Received assistance [...] month and year; [facility]; intermittently follows 1 [...] with prior right toe amputations transferred from [facility] with Demar's gangrene admitted on 11/09 for emergent surgical debridement. S/p perineal debridement (11/09 and 11/10). At baseline pt from half-way. Pt unable to provide any social history [...] Eval: 18 minutes Therapist: SADE Alvarado Pager: [facility] Occupational Therapy Department * Sophie Barajas MD - 11/12/2023 10:07 AM CDTAssociated Order(s): CONSULT TO MEDICINE SERVICES INTERNAL MEDICINE CONSULT- STAFF Matt Low : 1980 Sex: male Reason for Consult: Diabetes management, antibiotic selection IMPRESSION AND RECOMMENDATIONS: Demar's Gangrene Necrotizing fasciitis Transferred from [facility] for scrotal swelling, pain, concern for Demar's [...] NPO with excellent blood sugarcontrol. 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 Would give [...] long enough to participate indiscussion. Transferred from [facility] for scrotal pain and swelling, concern for [...] including pre-visit review of separately obtained history, [id number] interaction performing medically appropriate physical exam, patientcounseling/education, [...] 3:41 PM CDT Operative Report - PGY2 [facility] Matt Anne : 1980 Sex: [...] 6:07 PM CDT OPERATIVE REPORT - PGY5 [facility] Matt Low : 1980 Sex: [...] PM CDT Pt BIBA as transfer from [place]. 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 Pt given Ertapenem 1gm and Insulin 10 units [employer]. BS 400 at outside hospital. Pt is [...] Physical Therapy Inpatient Discharge Summary Stephanie Low [id number] PT Discharge Recommendations DC Recommendations: Post-acute placement [...] LE in post-op shoe with (6) Modified Willacy in order to mobilize in home by [...] Therapist: Kenrick Fisher PT Date: 11/24/2023 Pager: [email or web address] PT Department * Discharge non-MD/non-MIRI Summaries - Lior Azul - 11/25/2023 7:36 AM CDT Summary: DC to SNF Care Coordination Discharge Note Expected DC Date: 11/25/23 Expected DC Time: 13h30 Final Discharge Destination: Selected Continued Care - Admitted Since 11/10/2023 Destination Coordination complete. Service Provider Selected Services Address Phone Fax Patient Preferred [facility] [phone] [facility] [phone] -- Summary: Insurance approved Patient has been accepted to continue rehabing at the aforementioned post acute facility. Patient is on board with plan. CC spoke with patient in person in the room Box Tender also confirmed with Minnie REGALADO at . Also, DC summary faxed to [phone], via [email or web address]. WC ride has been ordered. COURIER (Brine Tank Operator Design Assistant) will schedule. Check [id number] for confirmation. Medical team is aware. They will work writing DC orders. CC sent DC orders to SNF by [email or web address] fax. Medical team is aware any controlled substances must be printed and signed to be sent in physical form to the TCU. PLEASE MAKE SURE RX IS COMPLETE. MAKE SURE QUANTITY IS ADDED. Also, PSC/NUCLEAR PROCESS ENGINEER/RN will fax it to TCU olga (this is required so in case of pain during transport, pain control can be addressed) Bedside nurse: please confirm this is done. A [employer] thread has been started. CC will continue to follow until DC. Please use Emulis for any further questions. * Nursing Assessment [...] Townsend, OTR/L - 11/24/2023 12:59 PM CDT [facility] Occupational Therapy Discharge Summary Stephanie [...] subacute rehab. Patient Name: Stephanie Low MR#: [id number] Date of : 1980 Age: 43 y.o. [...] (11/13/231099) Patient is living in a/an : half-way (11/13/23 1100) Prior Level of Function ([employer]): ADLs/IADLs: Received assistance from staff at residence [...] RN - 11/23/2023 4:39 PM CDT Per CARE ADVOCATE no longer meets IP criteria, documentation in [...] Toe Head to Toe Assessment Shift Summary [id number] Pt is a/o X4 and can make [...] Cardiac Assessment Within Defined Limits except for: Fisheries Management Biologist - remote telemetry Respiratory Within defined limits [...] Limits except for: Heart sounds: S1, S2 Fisheries Management Biologist - remote telemetry Comments: Consistently sustaining SBP [...] Toe Head to Toe Assessment Shift Summary [id number] Pt is a/o X4 and can make [...] Cardiac Assessment Within Defined Limits except for: Fisheries Management Biologist - remote telemetry Respiratory Within defined limits [...] Palomo DPM - 11/17/2023 9:26 AM CDT [facility] Immediate Post Operative Note Note [...] Patient to the OR at 0800. This policy writer sales called to notify NOVELTY TWISTER OPERATORstaff accountant of hypertension. Pt had left the room prior to HCA notifying this policy writer sales of BP of 222/101. Vitals: 11/17/23 0800 [...] wants to go outside to smoke, and policy writer sales encouraged the patient not to go outside [...] Cardiac Assessment Within Defined Limits except for: Fisheries Management Biologist - remote telemetry Respiratory Assessment Within Defined [...] Cardiac Assessment Within Defined Limits except for: Fisheries Management Biologist - remote telemetry Respiratory Assessment Within Defined [...] Defined Limits except for: Chest Pain: No Fisheries Management Biologist - remote telemetry Pacemaker: Pacemaker: No Respiratory [...] Cardiac Assessment Within Defined Limits except for: Fisheries Management Biologist - remote telemetry Comments: NSR Respiratory Within [...] Cardiac Assessment Within Defined Limits except for: Fisheries Management Biologist - remote telemetry Respiratory Assessment Within Defined [...] Cardiac: Assessment Within Defined Limits except for: Fisheries Management Biologist - remote telemetry Respiratory: Assessment Within Defined [...] Note - PGY-1 Matt Low 43 y.o. [id number] Paged at 03:34 on 11/14/23 for elevated [...] for SBP > 180 - Potentially resume [employer] losartan per primary team in the AM [...] Cardiac Assessment Within Defined Limits except for: Fisheries Management Biologist - remote telemetry Respiratory Assessment Within Defined [...] Cardiac Assessment Within Defined Limits except for: Fisheries Management Biologist - remote telemetry Pacemaker: Pacemaker: No Respiratory [...] Cardiac Assessment Within Defined Limits except for: Fisheries Management Biologist - remote telemetry Respiratory Assessment Within Defined [...] Cardiac Assessment Within Defined Limits except for: Fisheries Management Biologist - remote telemetry Respiratory Assessment Within Defined [...] Cardiac Assessment Within Defined Limits except for: Fisheries Management Biologist - remote telemetry Respiratory Assessment Within Defined [...] Nichols MD - 11/11/2023 3:13 PM CDT [facility] Immediate Post Operative Note Note [...] Osborn MD - 11/10/2023 5:07 PM CDT [facility] Immediate Post Operative Note Note [...] at time of review in ED - ferry boat captain abx administered * ED Stabilization Note - Allyssa Drummond MD - 11/10/2023 2:43 PM CDT Emergency Department Stabilization Room Note [facility] Arrival Date and Time: 11/10/2023 2:28 PM MEDICAL TEAM Attending: MD MARCELLUS Grullon Resident: Allyssa Drummond MD RN: Enmanuel HCA: Doreen Consultants: General surgery PRE-HOSPITAL EVENTS & HISTORY Matt Low is a 43 y.o. 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 Patient has a history of type 2 diabetes on 3 times daily 10 units long-acting insulin, situs inversus, and TBI several years ago for which he lives in a half-way. 2 days ago he noticed pain in his perineum, it has gotten worse over the past several days. His girlfriend urged him to go to the hospital today and the physicians at [place] were concerned for Demar'sgangrene and transferred him [...] CRP 30, procal 0.83, WBC 20 at [place]. We will draw an ESR and our [...] POC Glucose 140(H) 70 - 100 mg/dL [facility] - POINT OF CARE Blood 11/25/2023 6:03 AM CDT Jessica Grullon MD LABORATORY [facility] [address] [place] [phone], [place] * (ABNORMAL) POC GLUCOSE (11/24/2023 8:47 PM CDT) POC Glucose 156(H) 70 - 100 mg/dL [facility] POINT OF [facility] Blood 11/24/2023 8:47 PM CDT Jessica Grullon MD LABORATORY Performing Organization Address City/[facility] Co de Phone Number [facility] [address] [place] [phone], [place] * (ABNORMAL) POC GLUCOSE (11/24/2023 4:56 PM CDT) POC Glucose 177(H) 70 - 100 mg/dL [facility] POINT [facility] Blood 11/24/2023 4:56 PM CDT Jessica Grullon MD LABORATORY Performing Organization Address City/[facility] Co de Phone Number [facility] [address] [place] [phone], [place] * (ABNORMAL) POC GLUCOSE (11/24/2023 11:22 AM CDT) POC Glucose 146(H) 70 - 100 mg/dL [facility] POINT OF CARE Blood 11/24/2023 11:2 2 AM CDT Jessica Grullon MD LABORATORY Performing Organization Address City/[facility]/ZIP Co de Phone Number [facility] [address] [place] [phone], [place] * (ABNORMAL) POC GLUCOSE (11/24/2023 6:03 AM CDT) POC Glucose 147(H) 70 - 100 mg/dL [facility] - POINT OF CARE Blood 11/24/2023 6:03 AM CDT Jessica Grullon MD LABORATORY [facility] POINT OF CARE [address] [place] [address], [place] * (ABNORMAL) POC GLUCOSE (11/23/2023 7:52 PM CDT) POC Glucose 160(H) 70 - 100 mg/dL [facility] POINT OF CARE Blood 11/23/2023 7:52 PM CDT Jessica Grullon MD LABORATORY Performing Organization Address [facility] Co de Phone Number [facility] POINT [facility] [address] [place] [address], [place] * (ABNORMAL) POC GLUCOSE (11/23/2023 4:18 PM CDT) POC Glucose 156(H) 70 - 100 mg/dL [facility] POINT OF CARE Blood 11/23/2023 4:18 PM CDT Jessica Grullon MD LABORATORY Performing Organization Address City/[facility] Co de Phone Number [facility] POINT [facility] [address] [place] [address], [place] * (ABNORMAL) POC GLUCOSE (11/23/2023 11:13 AM CDT) POC Glucose 182(H) 70 - 100 mg/dL [facility] POINT OF CARE Blood 11/23/2023 11:1 3 AM CDT Jessica Grullon MD LABORATORY Performing Organization Address City/[facility] Co de Phone Number [facility] PO[facility] [address] [place] [address], [place] * (ABNORMAL) PANEL BASIC METABOLIC (BMP) (11/23/2023 8:31 AM CDT) CO2 24 22 - 30 mmol/L [facility] Glucose 192(H) 70 - 100 mg/dL [facility] BUN 20 6 - 20 mg/dL [facility] Creatinine 1.96(H) 0.70 - 1.25 mg/dL [facility] Calcium 8.5(L) 8.6 - 10.0 mg/dL [facility] Sodium 137 135 - 148 mmol/L [facility] Potassium 5.1 3.5 - 5.3 mmol/L [facility] Chloride 103 92 - 108 mmol/L [facility] eGFR (2020 CKD-EPI) 42(L) >=60 ml/min/1.7 3m2 [facility] Comment: The estimated glomerular filtration rate (eGFR) was calculated using the CKD-EPI 2020 creatinine equation, which does not include race as a factor. This equation is validated in individuals 18 years of age and older, and eGFR is normalized to a body surface area of 1.73m^2. AnGap 10 8 - 16 mmol/L [facility] Blood 11/23/2023 8:31 AM CDT 11/23/2023 9:12 AM CDT Zac Churchill MD LABORATORY [facility] [address] [address] * (ABNORMAL) CBC WITH PLATELET (11/23/2023 8:31 AM CDT) WBC 13.36(H) 4.00 - 10.00 k/cmm [facility] RBC 3.57(L) 4.60 - 6.00 m/cmm [facility] Hgb 10.0(L) 13.1 - 17.5 g/dL [facility] Hematocrit 31.5(L) 40.0 - 51.0 % [facility] MCV 88.2 80.0 - 100.0 fL [facility] MCH 28.0 25.0 - 32.0 pg [facility] MCHC 31.7 31.0 - 36.0 g/dL [facility] RDW 14.4 11.5 - 14.5 % [facility] Plt 492(H) 150 - 400 k/cmm [facility] MPV 9.1 6.5 - 12.5 fL [facility] Blood 11/23/2023 8:31 AM CDT 11/23/2023 9:11 AM CDT Zac Churchill MD LABORATORY [facility] [address] [place] [address] * (ABNORMAL) POC GLUCOSE (11/23/2023 6:43 AM CDT) POC Glucose 121(H) 70 - 100 mg/dL [facility] POINT OF CARE Blood 11/23/2023 6:43 AM CDT Jessica Grullon MD LABORATORY Performing Organization Address City/[facility] Co de Phone Number [place] [phone], [place] * POC GLUCOSE (11/22/2023 8:28 PM CDT) POC Glucose 95 70 - 100 mg/dL [facility] POINT [facility] Blood 11/22/2023 8:28 PM CDT Jessica Grullno MD LABORATORY Performing Organization Address City/[facility]/ZIP Co de Phone Number [facility] POINT OF [place] [phone], [place] * (ABNORMAL) POC GLUCOSE (11/22/2023 4:10 PM CDT) POC Glucose 176(H) 70 - 100 mg/dL [facility] POINT OF CARE Blood 11/22/2023 4:10 PM CDT Jessica Grullon MD LABORATORY Performing Organization Address City/[facility] Co de Phone Number [place] [phone], [place] * (ABNORMAL) POC GLUCOSE (11/22/2023 11:21 AM CDT) [facility] POC Glucose 201(H) 70 - 100 mg/dL [facility] POINT OF CARE Blood 11/22/2023 11:2 1 AM CDT Jessica Grullon MD LABORATORY [facility] - POINT OF CARE [address] [place] [phone], * (ABNORMAL) CYSTATIN C (11/22/2023 9:23 AM CDT) [facility] Cystatin C 1.43(H) 0.61 - 0.95 mg/L [facility] eGFR by Cystatin C 51(L) >=60 ml/min/1.7 3m2 [facility] Comment: Estimated GFR calculated using the CKD-EPI Cystatin C (2012) equation. Stage ? Description ?eGFR Range ??1.......Normal or increased eGFR.......90 or Greater ??2.......Mildly decreased eGFR..........60-89 ??3.......Moderately decreased eGFR......30-59 ??4.......Severely decreased eGFR........15-29 ??5.......Kidney Failure.................Less than 15 Blood 11/22/2023 9:23 AM CDT 11/22/2023 2:05 PM CDT Zac Churchill MD LABORATORY [facility] [address] [place] [phone] * (ABNORMAL) PANEL BASIC METABOLIC (BMP) (11/22/2023 9:23 AM CDT) Pathologist [facility] Sodium 136 135 - 148 mmol/L [facility] Potassium 5.1 3.5 - 5.3 mmol/L [facility] Chloride 102 92 - 108 mmol/L [facility] CO2 24 22 - 30 mmol/L [facility] AnGap 10 8 - 16 mmol/L [facility] Glucose 254(H) 70 - 100 mg/dL [facility] [facility] BUN 20 6 - 20 mg/dL [facility] Creatinine 2.00(H) 0.70 - 1.25 mg/dL [facility] Calcium 8.6 8.6 - 10.0 mg/dL [facility] eGFR (2020 CKD-EPI) 41(L) >=60 ml/min/1.7 3m2 [facility] Comment: The estimated glomerular filtration rate (eGFR) was calculated using the CKD-EPI 2020 creatinine equation, which does not include race as a factor. This equation is validated in individuals 18 years of age and older, and eGFR is normalized to a body surface area of 1.73m^2. Blood 11/22/2023 9:23 AM CDT 11/22/2023 10:28 AM CDT Zac Churchill MD LABORATORY [facility] [address] [address] * (ABNORMAL) CBC WITH PLATELET (11/22/2023 9:23 AM CDT) WBC 12.35(H) 4.00 - 10.00 k/cmm [facility] RBC 3.47(L) 4.60 - 6.00 m/cmm [facility] Hgb 9.8(L) 13.1 - 17.5 g/dL [facility] Hematocrit 30.8(L) 40.0 - 51.0 % [facility] MCV 88.8 80.0 - 100.0 fL [facility] MCH 28.2 25.0 - 32.0 pg [facility] MCHC 31.8 31.0 - 36.0 g/dL [facility] RDW 14.5 11.5 - 14.5 % [facility] Plt 530(H) 150 - 400 k/cmm [facility] MPV 9.3 6.5 - 12.5 fL [facility] Blood 11/22/2023 9:23 AM CDT 11/22/2023 10:28 AM CDT Zac Churchill MD LABORATORY [facility] [address] [place] [address] * (ABNORMAL) POC GLUCOSE (11/22/2023 6:55 AM CDT) POC Glucose 136(H) 70 - 100 mg/dL [facility] Blood 11/22/2023 6:55 AM CDT Jessica Grullon MD LABORATORY Performing Organization Address City/[facility] Co de Phone Number [facility] [address] [place], [place] [id number], [place] * (ABNORMAL) POC GLUCOSE (11/21/2023 8:38 PM CDT) POC Glucose 139(H) 70 - 100 mg/dL [facility] Blood 11/21/2023 8:38 PM CDT Jessica Grullon MD LABORATORY Performing Organization Address City/[facility] Co de Phone Number [facility] [address] [place] [address], [place] * (ABNORMAL) POC GLUCOSE (11/21/2023 4:13 PM CDT) POC Glucose 141(H) 70 - 100 mg/dL [facility] Blood 11/21/2023 4:13 PM CDT Jessica Grullon MD LABORATORY Performing Organization Address City/[facility]/ZIP Co de Phone Number [facility] [address] [place] [address], [place] * (ABNORMAL) POC GLUCOSE (11/21/2023 11:12 AM CDT) Pathologist [facility] POC Glucose 177(H) 70 - 100 mg/dL [facility] Blood 11/21/2023 11:1 2 AM CDT Jessica Grullon MD LABORATORY Performing Organization Address [facility] Co de Phone Number [facility] [address] [place] [address], * (ABNORMAL) POC GLUCOSE (11/21/2023 6:08 AM CDT) [facility] POC Glucose 131(H) 70 - 100 mg/dL [facility] Blood 11/21/2023 6:08 AM CDT Jessica Grullon MD LABORATORY Performing Organization Address [facility] de Phone Number [facility] [address] [place] [address], [place] * (ABNORMAL) PANEL BASIC METABOLIC (BMP) (11/21/2023 4:52 AM CDT) [facility] CO2 27 22 - 30 mmol/L [facility] Glucose 128(H) 70 - 100 mg/dL [facility] BUN 21(H) 6 - 20 mg/dL [facility] Creatinine 2.07(H) 0.70 - 1.25 mg/dL [facility] Calcium 8.4(L) 8.6 - 10.0 mg/dL [facility] Sodium 138 135 - 148 mmol/L [facility] Potassium 4.8 3.5 - 5.3 mmol/L [facility] Chloride 103 92 - 108 mmol/L [facility] eGFR (2020 CKD-EPI) 40(L) >=60 ml/min/1.7 3m2 [facility] Comment: The estimated glomerular filtration rate (eGFR) was calculated using the CKD-EPI 2020 creatinine equation, which does not include race as a factor. This equation is validated in individuals 18 years of age and older, and eGFR is normalized to a body surface area of 1.73m^2. AnGap 8 8 - 16 mmol/L [facility] Blood 11/21/2023 4:52 AM CDT 11/21/2023 5:27 AM CDT Zac Churchill MD LABORATORY Performing Organization Address [facility] Co de Phone Number [facility] [address] [address] * (ABNORMAL) CBC WITH PLATELET (11/21/2023 4:52 AM CDT) WBC 11.48(H) 4.00 - 10.00 k/cmm [facility] RBC 3.21(L) 4.60 - 6.00 m/cmm [facility] Hgb 9.0(L) 13.1 - 17.5 g/dL [facility] Hematocrit 28.7(L) 40.0 - 51.0 % [facility] MCV 89.4 80.0 - 100.0 fL [facility] MCH 28.0 25.0 - 32.0 pg [facility] MCHC 31.4 31.0 - 36.0 g/dL [facility] RDW 14.6(H) 11.5 - 14.5 % [facility] Plt 510(H) 150 - 400 k/cmm [facility] MPV 9.1 6.5 - 12.5 fL [facility] Blood 11/21/2023 4:52 AM CDT 11/21/2023 5:27 AM CDT Zac Churchill MD LABORATORY Performing Organization Address [facility] Co de Phone Number [facility] [address] [address] * (ABNORMAL) POC GLUCOSE (11/20/2023 9:13 PM CDT) POC Glucose 153(H) 70 - 100 mg/dL [facility] Blood 11/20/2023 9:13 PM CDT Jessica Grullon MD LABORATORY Performing Organization Address City/[facility]/ZIP Co de Phone Number [facility] [address] [place] [phone], * (ABNORMAL) POC GLUCOSE (11/20/2023 3:52 PM CDT) Pathologist [facility] POC Glucose 129(H) 70 - 100 mg/dL [facility] Blood 11/20/2023 3:52 PM CDT Jessica Grullon MD LABORATORY Performing Organization Address [facility] Co de Phone Number [facility] [address] [place] [address], [place] * (ABNORMAL) POC GLUCOSE (11/20/2023 11:16 AM CDT) [facility] POC Glucose 165(H) 70 - 100 mg/dL [facility] Blood 11/20/2023 11:1 6 AM CDT Jessica Grullon MD LABORATORY Performing Organization Address [facility] de Phone Number [facility] [address] [place] [phone], [place] * (ABNORMAL) PANEL BASIC METABOLIC (BMP) (11/20/2023 8:18 AM CDT) [facility] Sodium 140 135 - 148 mmol/L [facility] Potassium 4.9 3.5 - 5.3 mmol/L [facility] Chloride 105 92 - 108 mmol/L [facility] CO2 26 22 - 30 mmol/L [facility] AnGap 9 8 - 16 mmol/L [facility] Glucose 147(H) 70 - 100 mg/dL [facility] BUN 21(H) 6 - 20 mg/dL [facility] Creatinine 2.02(H) 0.70 - 1.25 mg/dL [facility] Calcium 8.4(L) 8.6 - 10.0 mg/dL [facility] eGFR (2020 CKD-EPI) 41(L) >=60 ml/min/1.7 3m2 [facility] Comment: The estimated [...] AM CDT 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 APRN, CNP LABORATORY [facility] [address] [address] * (ABNORMAL) CBC WITH PLTS/AUTO DIFF (11/20/2023 8:18 AM CDT) WBC 10.90(H) 4.00 - 10.00 k/cmm [facility] RBC 3.17(L) 4.60 - 6.00 m/cmm [facility] Hgb 9.0(L) 13.1 - 17.5 g/dL [facility] Hematocrit 28.3(L) 40.0 - 51.0 % [facility] MCV 89.3 80.0 - 100.0 fL [facility] MCH 28.4 25.0 - 32.0 pg [facility] MCHC 31.8 31.0 - 36.0 g/dL [facility] RDW 14.3 11.5 - 14.5 % [facility] Plt 492(H) 150 - 400 k/cmm [facility] MPV 9.2 6.5 - 12.5 fL [facility] Automated Abs Neutrophil 6.51(H) 1.70 - 6.50 k/cmm [facility] Comment:Preliminary ANC, Fin al Result to Follow Abs Immature Granulocyte 0.57(H) 0.00 - 0.09 k/cmm [facility] Comment:The Immature Granulo cyte Absolute count contains metamyelocytes and myelocytes. Abs Neutrophil 6.51(H) 1.70 - 6.50 k/cmm [facility] Abs Lymphocyte 2.07 0.80 - 4.00 k/cmm [facility] Abs Monocyte 1.27(H) 0.20 - 1.00 k/cmm [facility] Abs Eosinophil 0.45 0.00 - 0.60 k/cmm [facility] Abs Basophil 0.03 0.00 - 0.20 k/cmm [facility] Blood 11/20/2023 8:18 AM CDT 11/20/2023 8:40 AM CDT 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 APRN, CNP LABORATORY [facility] [address] [place] [phone] * (ABNORMAL) POC GLUCOSE (11/20/2023 8:08 AM CDT) POC Glucose 133(H) 70 - 100 mg/dL [facility] Blood 11/20/2023 8:08 AM CDT Jessica Grullon MD LABORATORY Performing Organization Address City/[facility] Co de Phone Number [facility] [place] [phone], [place] * (ABNORMAL) POC GLUCOSE (11/20/2023 6:30 AM CDT) POC Glucose 153(H) 70 - 100 mg/dL [facility] Blood 11/20/2023 6:30 AM CDT Jessica Grullon MD LABORATORY Performing Organization Address City/[facility] Co de Phone Number [facility] [address] [address], [place] * (ABNORMAL) POC GLUCOSE (11/19/2023 9:03 PM CDT) POC Glucose 148(H) 70 - 100 mg/dL [facility] Blood 11/19/2023 9:03 PM CDT Jessica Grullon MD LABORATORY Performing Organization Address City/[facility]/ZIP Co de Phone Number [facility] [address] [place] [phone], [place] * (ABNORMAL) POC GLUCOSE (11/19/2023 3:55 PM CDT) POC Glucose 126(H) 70 - 100 mg/dL [facility] Blood 11/19/2023 3:55 PM CDT Jessica Grullon MD LABORATORY Performing Organization Address City/[facility] Co de Phone Number [facility] [address] [place] [address], [place] * (ABNORMAL) POC GLUCOSE (11/19/2023 12:03 PM CDT) POC Glucose 147(H) 70 - 100 mg/dL [facility] Blood 11/19/2023 12:0 3 PM CDT Jessica Grullon MD LABORATORY Performing Organization Address City/[facility] Co de Phone Number [facility] [address] [place] [address], [place] * (ABNORMAL) POC GLUCOSE (11/19/2023 11:07 AM CDT) POC Glucose 159(H) 70 - 100 mg/dL [facility] Blood 11/19/2023 11:0 7 AM CDT Jessica Grullon MD LABORATORY Performing Organization Address City/[facility]/ZIP Co de Phone Number [facility] [address] [place] [address], [place] * (ABNORMAL) POC GLUCOSE (11/19/2023 8:51 AM CDT) POC Glucose 185(H) 70 - 100 mg/dL [facility] Blood 11/19/2023 8:51 AM CDT Jessica Grullon MD LABORATORY Performing Organization Address City/[facility]/ZIP Co de Phone Number [facility] [address] [place] [address], * (ABNORMAL) PANEL BASIC METABOLIC (BMP) (11/19/2023 7:58 AM CDT) CO2 24 22 - 30 mmol/L [facility] Glucose 221(H) 70 - 100 mg/dL [facility] BUN 25(H) 6 - 20 mg/dL [facility] Creatinine 2.19(H) 0.70 - 1.25 mg/dL [facility] Calcium 7.8(L) 8.6 - 10.0 mg/dL [facility] Sodium 138 135 - 148 mmol/L [facility] Potassium 4.7 3.5 - 5.3 mmol/L [facility] Chloride 104 92 - 108 mmol/L [facility] eGFR (2020 CKD-EPI) 37(L) >=60 ml/min/1.7 3m2 [facility] Comment: The estimated glomerular filtration rate (eGFR) was calculated using the CKD-EPI 2020 creatinine equation, which does not include race as a factor. This equation is validated in individuals 18 years of age and older, and eGFR is normalized to a body surface area of 1.73m^2. AnGap 10 8 - 16 mmol/L [facility] Blood 11/19/2023 7:58 AM CDT 11/19/2023 8:34 AM CDT 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 APRN, CNP LABORATORY [facility] [address] [address] * (ABNORMAL) CBC WITH PLTS/AUTO DIFF (11/19/2023 7:58 AM CDT) WBC 10.66(H) 4.00 - 10.00 k/cmm [facility] RBC 3.14(L) 4.60 - 6.00 m/cmm [facility] Hgb 9.0(L) 13.1 - 17.5 g/dL [facility] Hematocrit 27.7(L) 40.0 - 51.0 % [facility] MCV 88.2 80.0 - 100.0 fL [facility] MCH 28.7 25.0 - 32.0 pg [facility] MCHC 32.5 31.0 - 36.0 g/dL [facility] RDW 14.3 11.5 - 14.5 % [facility] Plt 482(H) 150 - 400 k/cmm [facility] MPV 9.2 6.5 - 12.5 fL [facility] Automated Abs Neutrophil 6.41 1.70 - 6.50 k/cmm [facility] Comment:Preliminary ANC, Fin al Result to Follow Polychromasia Slight [facility] Abs Neutrophil 8.10(H) 1.70 - 6.50 k/cmm [facility] Abs Lymphocyte 1.07 0.80 - 4.00 k/cmm [facility] Abs Monocyte 0.85 0.20 - 1.00 k/cmm [facility] Abs Eosinophil 0.32 0.00 - 0.60 k/cmm [facility] Abs Basophil 0.11 0.00 - 0.20 k/cmm [facility] Abs Myelocyte 0.21(H) 0.00 - 0.00 k/cmm [facility] Blood 11/19/2023 7:58 AM CDT 11/19/2023 8:34 AM CDT 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 APRN, CNP LABORATORY [facility] [address] [address] * (ABNORMAL) POC GLUCOSE (11/19/2023 6:37 AM CDT) POC Glucose 212(H) 70 - 100 mg/dL [facility] Blood 11/19/2023 6:37 AM CDT Jessica Grullon MD LABORATORY [facility] [address] [place] [phone], * POC GLUCOSE (11/18/2023 8:54 PM CDT) POC Glucose 99 70 - 100 mg/dL [facility] Blood 11/18/2023 8:54 PM CDT Jessica Grullon MD LABORATORY [facility] [address] [place] [address], [place] * (ABNORMAL) POC GLUCOSE (11/18/2023 8:20 PM CDT) POC Glucose 69(L) 70 - 100 mg/dL [facility] Blood 11/18/2023 8:20 PM CDT Jessica Grullon MD LABORATORY Performing Organization Address City/[facility] Co de Phone Number [facility] [address] [place] [phone], [place] * (ABNORMAL) POC GLUCOSE (11/18/2023 4:37 PM CDT) POC Glucose 154(H) 70 - 100 mg/dL [facility] Blood 11/18/2023 4:37 PM CDT Jessica Grullon MD LABORATORY Performing Organization Address City/[facility] Co de Phone Number [facility] [address] [place] [address], [place] * (ABNORMAL) POC GLUCOSE (11/18/2023 11:03 AM CDT) POC Glucose 158(H) 70 - 100 mg/dL [facility] Blood 11/18/2023 11:0 3 AM CDT Jessica Grullon MD LABORATORY Performing Organization Address City/[facility]/ZIP Co de Phone Number [facility] [address] [place] [phone], [place] * (ABNORMAL) PANEL BASIC METABOLIC (BMP) (11/18/2023 9:02 AM CDT) CO2 24 22 - 30 mmol/L [facility] Glucose 180(H) 70 - 100 mg/dL [facility] BUN 27(H) 6 - 20 mg/dL [facility] Creatinine 2.17(H) 0.70 - 1.25 mg/dL [facility] Calcium 8.2(L) 8.6 - 10.0 mg/dL [facility] Sodium 137 135 - 148 mmol/L [facility] Potassium 4.5 3.5 - 5.3 mmol/L [facility] Chloride 104 92 - 108 mmol/L [facility] eGFR (2020 CKD-EPI) 37(L) >=60 ml/min/1.7 3m2 [facility] Comment: The estimated glomerular filtration rate (eGFR) was calculated using the CKD-EPI 2020 creatinine equation, which does not include race as a factor. This equation is validated in individuals 18 years of age and older, and eGFR is normalized to a body surface area of 1.73m^2. AnGap 9 8 - 16 mmol/L [facility] Blood 11/18/2023 9:02 AM CDT 11/18/2023 9:21 AM CDT 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 APRN, CNP LABORATORY [facility] [address] [address] * (ABNORMAL) CBC WITH PLTS/AUTO DIFF (11/18/2023 9:02 AM CDT) WBC 10.61(H) 4.00 - 10.00 k/cmm [facility] RBC 3.36(L) 4.60 - 6.00 m/cmm [facility] Hgb 9.4(L) 13.1 - 17.5 g/dL [facility] Hematocrit 29.5(L) 40.0 - 51.0 % [facility] MCV 87.8 80.0 - 100.0 fL [facility] MCH 28.0 25.0 - 32.0 pg [facility] MCHC 31.9 31.0 - 36.0 g/dL [facility] RDW 14.2 11.5 - 14.5 % [facility] Plt 495(H) 150 - 400 k/cmm [facility] MPV 9.2 6.5 - 12.5 fL [facility] Automated Abs Neutrophil 6.34 1.70 - 6.50 k/cmm [facility] Comment:Preliminary ANC, Fin al Result to Follow NUC RBC 1.0(H) 0.0 - 0.0 /100WBC [facility] Polychromasia Slight [facility] Abs Neutrophil 7.32(H) 1.70 - 6.50 k/cmm [facility] Abs Lymphocyte 2.23 0.80 - 4.00 k/cmm [facility] Abs Monocyte 0.85 0.20 - 1.00 k/cmm [facility] Abs Eosinophil 0.21 0.00 - 0.60 k/cmm [facility] Blood 11/18/2023 9:02 AM CDT 11/18/2023 9:21 AM CDT 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 APRN, CNP LABORATORY Performing Organization Address City/[facility]/ZIP Co de Phone Number [facility] [place] [address] * (ABNORMAL) POC GLUCOSE (11/18/2023 6:21 AM CDT) POC Glucose 194(H) 70 - 100 mg/dL [facility] Blood 11/18/2023 6:21 AM CDT Jessica Grullon MD LABORATORY Performing Organization Address City/[facility]/ZIP Co de Phone Number [facility] [address] [place] [address] * (ABNORMAL) POC GLUCOSE (11/17/2023 8:19 PM CDT) POC Glucose 143(H) 70 - 100 mg/dL [facility] Blood 11/17/2023 8:19 PM CDT Jessica Grullon MD LABORATORY [facility] [address] [place] [address], * (ABNORMAL) POC GLUCOSE (11/17/2023 4:40 PM CDT) [facility] POC Glucose 235(H) 70 - 100 mg/dL [facility] Blood 11/17/2023 4:40 PM CDT Jessica Grullon MD LABORATORY [facility] [address] [place] [address], [place] * (ABNORMAL) CBC WITH PLTS/AUTO DIFF (11/17/2023 2:35 PM CDT) [facility] WBC 11.70(H) 4.00 - 10.00 k/cmm [facility] RBC 3.37(L) 4.60 - 6.00 m/cmm [facility] Hgb 9.6(L) 13.1 - 17.5 g/dL [facility] Hematocrit 29.6(L) 40.0 - 51.0 % [facility] MCV 87.8 80.0 - 100.0 fL [facility] MCH 28.5 25.0 - 32.0 pg [facility] MCHC 32.4 31.0 - 36.0 g/dL [facility] RDW 14.2 11.5 - 14.5 % [facility] Plt 466(H) 150 - 400 k/cmm [facility] MPV 9.3 6.5 - 12.5 fL [facility] Automated Abs Neutrophil 7.44(H) 1.70 - 6.50 k/cmm [facility] Comment:Preliminary ANC, Fin al Result to Follow Abs Immature Granulocyte 0.52(H) 0.00 - 0.09 k/cmm [facility] Comment:The Immature Granulo cyte Absolute count contains metamyelocytes and myelocytes. Abs Neutrophil 7.44(H) 1.70 - 6.50 k/cmm [facility] Abs Lymphocyte 1.96 0.80 - 4.00 k/cmm [facility] Abs Monocyte 1.45(H) 0.20 - 1.00 k/cmm [facility] Abs Eosinophil 0.27 0.00 - 0.60 k/cmm [facility] Abs Basophil 0.06 0.00 - 0.20 k/cmm [facility] Polychromasia Slight [facility] Blood 11/17/2023 2:35 PM CDT 11/17/2023 2:57 PM CDT Scar Leyva MD LABORATORY Performing Organization Address [facility] Co de Phone Number [facility] [address] [address] * (ABNORMAL) PANEL BASIC METABOLIC (BMP) (11/17/2023 2:35 PM CDT) CO2 21(L) 22 - 30 mmol/L [facility] Glucose 252(H) 70 - 100 mg/dL [facility] BUN 30(H) 6 - 20 mg/dL [facility] Creatinine 2.27(H) 0.70 - 1.25 mg/dL [facility] Calcium 8.2(L) 8.6 - 10.0 mg/dL [facility] Sodium 137 135 - 148 mmol/L [facility] Potassium 4.3 3.5 - 5.3 mmol/L [facility] Chloride 104 92 - 108 mmol/L [facility] eGFR (2020 CKD-EPI) 35(L) >=60 ml/min/1.7 3m2 [facility] Comment: The estimated glomerular filtration rate (eGFR) was calculated using the CKD-EPI 2020 creatinine equation, which does not include race as a factor. This equation is validated in individuals 18 years of age and older, and eGFR is normalized to a body surface area of 1.73m^2. AnGap 12 8 - 16 mmol/L [facility] Blood 11/17/2023 2:35 PM CDT 11/17/2023 2:57 PM CDT Scar Leyva MD LABORATORY Performing Organization Address [facility]/ZIP Co de Phone Number [facility] [address] [id number] * ANTI XA ASSAY LMW HEPARIN (11/17/2023 11:47 AM CDT) Anti XA LMW <0.04 IU/mL [facility] Comment: Anti Xa Assay LMW Heparin Therapeutic Ranges: 0.4-1.1 IU/mL for twice daily 1.0-2.0 IU/mL for once daily Blood 11/17/2023 11:4 7 AM CDT 11/17/2023 12:01 PM CDT Zac Churchill MD LABORATORY Performing Organization Address [facility]/ZIP Co de Phone Number [facility] [place] [address] * (ABNORMAL) POC GLUCOSE (11/17/2023 11:25 AM CDT) POC Glucose 190(H) 70 - 100 mg/dL [facility] Blood 11/17/2023 11:2 5 AM CDT Jessica Grullon MD LABORATORY Performing Organization Address [facility] de Phone Number [facility] [place] [address], * XR FOOT LEFT 3 V AP/OBL/LAT* [...] POC Glucose 176(H) 70 - 100 mg/dL [facility] Blood 11/17/2023 10:0 1 AM CDT Jessica Grullon MD LABORATORY [facility] [address] [place] [address], * (ABNORMAL) TISSUE CULTURE:INCLUDES GRAM STAIN (11/17/2023 9:35 AM CDT) Final Report Positive Culture Previous positive called. Rare METHICILLIN RESISTANT Staphylococcus aureus (MRSA) isolated. 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 One colony Staphylococcus lugdunensis isolated. (POS) [facility] Organism METHICILLIN RESISTANT STAPHYLOCOCCUS AUREUS (MRSA)(POS) [facility] Organism STAPHYLOCOCCUS LUGDUNENSIS(POS) [facility] Gram Stain Report Few WBC's seen. No organisms seen. Gram stain electronically reported to and acknowledged by: Che Palomo MD for Podiatric Surgery on 11/17/2023 11:56:22 by Silver Luna MLS [facility] Tissue TOE STRUCTURE [...] Mullent DPM LAB MICROBIOLOGY Performing Organization Address [facility] Co de Phone Number [facility] [address] [phone] * FUNGUS CULTURE:INCLUDES SUHAS (11/17/2023 9:35 AM CDT) Final Report No fungus isolated. [facility] SUHAS Prep No fungal elements seen. [facility] Tissue TOE STRUCTURE / Unknown 11/17/2023 9:35 AM CDT Chekatelin Mullent DPM LAB MICROBIOLOGY Performing Organization Address [facility] Co de Phone Number [facility] [address] [address] * ANAEROBE CULTURE (11/17/2023 9:35 AM CDT) Final Report No anaerobes isolated. [facility] Tissue TOE STRUCTURE / Unknown 11/17/2023 9:35 AM CDT Chekatelin Mullent DPM LAB MICROBIOLOGY Performing Organization Address [facility] Co de Phone Number [facility] [address] [place] [address] * AFB CULTURE:INCLUDES AFB SMEAR (11/17/2023 9:35 AM CDT) Final Report No acid fast bacilli isolated. [facility] Acid Fast Stain No acid fast bacilli seen. [facility] Tissue TOE STRUCTURE / Unknown 11/17/2023 9:35 AM CDT Che Palomo DP LAB MICROBIOLOGY Performing Organization Address [facility] de Phone Number [facility] [address] [address] * M TUBERCULOSIS AMPLIFICATION (11/17/2023 9:32 AM CDT) Final Report M. tuberculosis complex DNA not detected. [facility] Tissue TOE STRUCTURE / Unknown 11/17/2023 9:32 AM CDT 11/18/2023 9:56 AM CDT Comment:1: Left hallux soft tissue dirty Narrative [facility] - 11/18/2023 2:41 PM CDT This assay uses PCR nucleic acid amplification to detect Mycobacterium tuberculosis complex DNA. ??This test was developed and its performance characteristics determined by [facility]. ??It has not been cleared or approved by the U.S. Food and Drug Administration. ??FDA does not require this test to go through premarket FDA review. ??This test is used for clinical purposes. ??It should not be regarded as investigational or for research. ??[facility] is certified under the Clinical Laboratory Improvement Amendments of 1988 (CLIA) as qualified to perform high complexity clinical laboratory testing. Che Palomo DP LAB MICROBIOLOGY Performing Organization Address [facility] Co de Phone Number [facility] [address] [address] * (ABNORMAL) TISSUE CULTURE:INCLUDES GRAM STAIN (11/17/2023 9:32 AM CDT) Final Report Positive Culture Rare METHICILLIN RESISTANT Staphylococcus aureus (MRSA) isolated. 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 Rare Group B beta hemolytic Streptococcus isolated. Pseudomonas aeruginosa isolated in broth only. Results electronically reported to and acknowledged by: Paula Vazquez MD, in [facility] [place], at ?? 11/23/2023 07:49:11 by Pam Alvarado MLS. (POS) [facility] Organism METHICILLIN RESISTANT STAPHYLOCOCCUS AUREUS (MRSA)(POS) [facility] Organism GROUP B BETA HEMOLYTIC STREPTOCOCCUS(POS) [facility] Organism PSEUDOMONAS AERUGINOSA(POS) [facility] Gram Stain Report Positive Gram stain Gram stain electronically reported to and acknowledged by: Che Zheng MD for Podiatric Surgery on 11/17/2023 11:55:10 by Silver Luna MLS Rare WBC's seen. Rare gram positive cocci clusters. (POS) [facility] Tissue TOE STRUCTURE [...] Tobramycin VITEK JORDY <=1: Sensitive Che Palomo [facility] MICROBIOLOGY [facility] [address] [address] * FUNGUS CULTURE:INCLUDES SUHAS (11/17/2023 9:32 AM CDT) Final Report No fungus isolated. [facility] SUHAS Prep No fungal elements seen. [facility] Tissue TOE STRUCTURE / Unknown 11/17/2023 9:32 AM CDT Che Mullent DPM LAB MICROBIOLOGY Performing Organization Address [facility] Co de Phone Number [facility] [address] [address] * (ABNORMAL) ANAEROBE CULTURE (11/17/2023 9:32 AM CDT) Final Report Positive Culture Rare Veillonella parvula group isolated. Rare Actinomyces europaeus isolated. (POS) [facility] Organism VEILLONELLA PARVULA GROUP(POS) [facility] Organism ACTINOMYCES EUROPAEUS(POS) [facility] Tissue TOE STRUCTURE / Unknown 11/17/2023 9:32 AM CDT Che Mullent DPM LAB MICROBIOLOGY Performing Organization Address [facility] Co de Phone Number [facility] [address] [address] * AFB CULTURE:INCLUDES AFB SMEAR (11/17/2023 9:32 AM CDT) Final Report No acid fast bacilli isolated. [facility] Acid Fast Stain No acid fast bacilli seen. [facility] Tissue TOE STRUCTURE / Unknown 11/17/2023 9:32 AM CDT Hcekatelin Mullent DPM LAB MICROBIOLOGY Performing Organization Address [facility] Co de Phone Number [facility] [address] [address] * SURGICAL PATHOLOGY (11/17/2023 9:31 AM CDT) SURG PATH FINAL ?Surgical Pathology Report Collection Date: ?11/17/2023 09:31 CDT ?Ordering Physician: ? CHE PALOMO Received Date: ?11/17/2023 09:49 CDT ?Accession Number: ? [id number] ? Surgical Pathology Final Report Specimen Type: [...] underlying soft tissue with moderate osseous softening. Pattern Finisher sections are submitted on decalcification as follows: [...] Rodriguez M.D. Attending Pathologist. DDB/DDB 11.17.2023 10:26 [facility] AP Specimen FOOT STRUCTURE / Unknown 11/17/2023 9:31 AM CDT Comment:OR: Routine gross an d microscopic examination Tissue: Left Hallux Site: left foot Additional clinical information: Che Palomo DPM LAB PATHOLOGY Performing Organization Address [facility]/ZIP Co de Phone Number [facility] [place] [address] * (ABNORMAL) POC GLUCOSE (11/17/2023 9:14 AM CDT) POC Glucose 169(H) 70 - 100 mg/dL [facility] Blood 11/17/2023 9:14 AM CDT Jessica Gurllon MD LABORATORY Performing Organization Address [facility] Co de Phone Number [facility] [address] [place] [address], [place] * ULT ARTERIAL LOWER EXTREMITY LEFT [...] POC Glucose 205(H) 70 - 100 mg/dL [facility] Blood 11/17/2023 6:07 AM CDT Jessica Grullon MD LABORATORY Performing Organization Address [facility] Co de Phone Number [facility] [address] [place] [address], * (ABNORMAL) POC GLUCOSE (11/16/2023 8:46 PM CDT) POC Glucose 141(H) 70 - 100 mg/dL [facility] Blood 11/16/2023 8:46 PM CDT Jessica Grullon MD LABORATORY Performing Organization Address [facility] de Phone Number [facility] [address] [place] [address], [place] * XR FOOT LEFT 3 V [...] POC Glucose 148(H) 70 - 100 mg/dL [facility] Blood 11/16/2023 4:14 PM CDT Jessica Grullon MD LABORATORY Performing Organization Address [facility] Co de Phone Number [facility] [address] [place] [address], * (ABNORMAL) POC GLUCOSE (11/16/2023 10:55 AM CDT) POC Glucose 203(H) 70 - 100 mg/dL [facility] Blood 11/16/2023 10:5 5 AM CDT Jessica Grullon MD LABORATORY Performing Organization Address [facility] Co de Phone Number [facility] [address] [place] [address], * (ABNORMAL) CBC WITH PLATELET (11/16/2023 8:45 AM CDT) WBC 13.08(H) 4.00 - 10.00 k/cmm [facility] RBC 3.38(L) 4.60 - 6.00 m/cmm [facility] Hgb 9.6(L) 13.1 - 17.5 g/dL [facility] Hematocrit 28.9(L) 40.0 - 51.0 % [facility] MCV 85.5 80.0 - 100.0 fL [facility] MCH 28.4 25.0 - 32.0 pg [facility] MCHC 33.2 31.0 - 36.0 g/dL [facility] RDW 13.4 11.5 - 14.5 % [facility] Plt 475(H) 150 - 400 k/cmm [facility] MPV 9.5 6.5 - 12.5 fL [facility] Blood 11/16/2023 8:45 AM CDT 11/16/2023 8:58 AM CDT 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 APRN, CNP LABORATORY [facility] [address] [place] [address] * (ABNORMAL) PANEL BASIC METABOLIC (BMP) (11/16/2023 8:45 AM CDT) CO2 21(L) 22 - 30 mmol/L [facility] Glucose 261(H) 70 - 100 mg/dL [facility] BUN 35(H) 6 - 20 mg/dL [facility] Creatinine 2.67(H) 0.70 - 1.25 mg/dL [facility] Calcium 8.3(L) 8.6 - 10.0 mg/dL [facility] Sodium 139 135 - 148 mmol/L [facility] Potassium 4.4 3.5 - 5.3 mmol/L [facility] Chloride 106 92 - 108 mmol/L [facility] eGFR (2020 CKD-EPI) 29(L) >=60 ml/min/1.7 3m2 [facility] Comment: The estimated glomerular filtration rate (eGFR) was calculated using the CKD-EPI 2020 creatinine equation, which does not include race as a factor. This equation is validated in individuals 18 years of age and older, and eGFR is normalized to a body surface area of 1.73m^2. AnGap 12 8 - 16 mmol/L [facility] Blood 11/16/2023 8:45 AM CDT 11/16/2023 8:57 AM CDT 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 APRN, CNP LABORATORY Performing Organization Address [facility] Co de Phone Number [facility] [place] [address] * (ABNORMAL) POC GLUCOSE (11/16/2023 7:37 AM CDT) POC Glucose 180(H) 70 - 100 mg/dL [facility] Blood 11/16/2023 7:37 AM CDT Jessica Grullon MD LABORATORY Performing Organization Address [facility] Co de Phone Number [facility] [address] [place] [address], * (ABNORMAL) POC GLUCOSE (11/15/2023 9:23 PM CDT) POC Glucose 144(H) 70 - 100 mg/dL [facility] Blood 11/15/2023 9:23 PM CDT Jessica Grullon MD LABORATORY Performing Organization Address [facility] Co de Phone Number [facility] [address] [address], * (ABNORMAL) POC GLUCOSE (11/15/2023 4:18 PM CDT) POC Glucose 159(H) 70 - 100 mg/dL [facility] Blood 11/15/2023 4:18 PM CDT Jessica Grullon MD LABORATORY Performing Organization Address [facility]/ZIP Co de Phone Number [facility] [address] [place] [address], * (ABNORMAL) POC GLUCOSE (11/15/2023 11:19 AM CDT) POC Glucose 221(H) 70 - 100 mg/dL [facility] Blood 11/15/2023 11:1 9 AM CDT Jessica Grullon MD LABORATORY Performing Organization Address [facility] Co de Phone Number [facility] [address] [place] [address], [place] * (ABNORMAL) PANEL BASIC METABOLIC (BMP) (11/15/2023 7:39 AM CDT) CO2 21(L) 22 - 30 mmol/L [facility] Glucose 176(H) 70 - 100 mg/dL [facility] BUN 38(H) 6 - 20 mg/dL [facility] Creatinine 2.86(H) 0.70 - 1.25 mg/dL [facility] Calcium 7.6(L) 8.6 - 10.0 mg/dL [facility] Sodium 136 135 - 148 mmol/L [facility] Potassium 4.2 3.5 - 5.3 mmol/L [facility] Chloride 102 92 - 108 mmol/L [facility] eGFR (2020 CKD-EPI) 27(L) >=60 ml/min/1.7 3m2 [facility] Comment: The estimated glomerular filtration rate (eGFR) was calculated using the CKD-EPI 2020 creatinine equation, which does not include race as a factor. This equation is validated in individuals 18 years of age and older, and eGFR is normalized to a body surface area of 1.73m^2. AnGap 13 8 - 16 mmol/L [facility] Blood 11/15/2023 7:39 AM CDT 11/15/2023 7:58 AM CDT Shani Shaw MD LABORATORY Performing Organization Address [facility]/ZIP Co de Phone Number [facility] [address] [address] * (ABNORMAL) CREATININE, SERUM (11/15/2023 7:39 AM CDT) Creatinine 2.83(H) 0.70 - 1.25 mg/dL [facility] eGFR (2020 CKD-EPI) 27(L) >=60 ml/min/1.7 3m2 [facility] Comment: The estimated [...] Shani Shaw MD LABORATORY Performing Organization Address [facility] Co de Phone Number [facility] [address] [address] * HEPATITIS C ANTIBODY WITH CONDITIONAL PCR (11/15/2023 7:39 AM CDT) Hep C Lilly Nonreactive Nonreactive [facility] Comment:Performance characte ristics have not been established with this test on patients less than 10 years of age. Blood 11/15/2023 7:39 AM CDT 11/15/2023 7:58 AM CDT Zac Churchill MD LABORATORY [facility] [address] [address] * HIV COMBO (11/15/2023 7:39 AM CDT) HIV Antigen-Antibody Nonreactive Nonreactive [facility] Comment:Performance characte ristics have not been established with this test on patients less than 2 years of age. Blood 11/15/2023 7:39 AM CDT 11/15/2023 7:58 AM CDT Zac Churchill MD LABORATORY [facility] [address] [place] [address] * (ABNORMAL) POC GLUCOSE (11/15/2023 6:16 AM CDT) POC Glucose 154(H) 70 - 100 mg/dL [facility] Blood 11/15/2023 6:16 AM CDT Jessica Grullon MD LABORATORY Performing Organization Address [facility]/[place] [address], [place] * (ABNORMAL) POC GLUCOSE (11/14/2023 8:34 PM CDT) POC Glucose 159(H) 70 - 100 mg/dL [facility] Blood 11/14/2023 8:34 PM CDT Jessica Grullon MD LABORATORY Performing Organization Address [facility] Co de Phone Number [facility] [address] [address], [place] * (ABNORMAL) POC GLUCOSE (11/14/2023 4:36 PM CDT) POC Glucose 182(H) 70 - 100 mg/dL [facility] Blood 11/14/2023 4:36 PM CDT Jessica Grullon MD LABORATORY Performing Organization Address [facility]/ZIP Co de Phone Number [facility] OF [address] [address], [place] * (ABNORMAL) PROTEIN TO CREAT RATIO,URINE (11/14/2023 9:58 AM CDT) TPU 22(H) 0 - 11 mg/dL [facility] Creat Urine 89 30 - 125 mg/dL [facility] Protein to Creat Ratio, Ur 0.25(H) 0.00 - 0.06 mg/mg [facility] Urine 11/14/2023 9:58 AM CDT 11/14/2023 10:06 AM CDT Zac Churchill MD LABORATORY Performing Organization Address [facility] Co de Phone Number [facility] [address] [address] * (ABNORMAL) URINALYSIS,TOTAL (11/14/2023 9:58 AM CDT) Color YELLOW YELLOW [facility] Appearance CLEAR CLEAR [facility] Urine Glucose 500(A) NEGATIVE mg/dL [facility] Bili UA NEGATIVE NEGATIVE [facility] Ketones NEGATIVE NEGATIVE [facility] Specific Royal 1.012 1.003 - 1.030 [facility] Blood Ur NEGATIVE Neg-Trace [facility] PH Urine 5.5 5.0 - 7.0 [facility] Protein Ur TRACE Neg-Trace [facility] Urobilinogen NORMAL NORMAL EU/dL [facility] Nitrite Ur NEGATIVE NEGATIVE [facility] Leuk Est NEGATIVE Neg-Trace [facility] WBC Ur 0-5 0 - 5 perHPF [facility] RBC Ur 0-3 0 - 3 perHPF [facility] Mucus 1+ perLPF [facility] Urinalysis Performed at: [facility] Urine 11/14/2023 9:58 AM CDT 11/14/2023 10:06 AM CDT Zac Churchill MD LABORATORY Performing Organization Address [facility] Co de Phone Number [facility] [address] [address] * (ABNORMAL) POC GLUCOSE (11/14/2023 6:14 AM CDT) POC Glucose 171(H) 70 - 100 mg/dL [facility] Blood 11/14/2023 6:14 AM CDT Jessica Grullon MD LABORATORY Performing Organization Address [facility] Co de Phone Number [facility] [address] [place] [address], * VANCOMYCIN LEVEL (11/14/2023 5:30 AM CDT) Vancomycin 19.9 mcg/mL [facility] Comment:Expected Range (Trou gh): 10-20 mcg/ml Blood 11/14/2023 5:30 AM CDT 11/14/2023 5:56 AM CDT Zac Churchill MD LABORATORY Performing Organization Address [facility] de Phone Number [facility] [place] [address] * (ABNORMAL) CYSTATIN C (11/14/2023 5:30 AM CDT) Cystatin C 1.78(H) 0.61 - 0.95 mg/L [facility] eGFR by Cystatin C 38(L) >=60 ml/min/1.7 3m2 [facility] Comment: Estimated GFR calculated using the CKD-EPI Cystatin C (2012) equation. Stage ? Description ?eGFR Range ??1.......Normal or increased eGFR.......90 or Greater ??2.......Mildly decreased eGFR..........60-89 ??3.......Moderately decreased eGFR......30-59 ??4.......Severely decreased eGFR........15-29 ??5.......Kidney Failure.................Less than 15 Blood 11/14/2023 5:30 AM CDT 11/14/2023 5:56 AM CDT Zac Churchill MD LABORATORY Performing Organization Address [facility] Co de Phone Number [facility] [address] [address] * PHOSPHORUS (11/14/2023 5:30 AM CDT) Phosphorus 4.3 2.5 - 4.5 mg/dL [facility] Blood 11/14/2023 5:30 AM CDT 11/14/2023 5:56 AM CDT Zac Churchill MD LABORATORY Performing Organization Address [facility]/ZIP Co de Phone Number [facility] [address] [address] * (ABNORMAL) PANEL BASIC METABOLIC (BMP) (11/14/2023 5:30 AM CDT) [facility] Sodium 136 135 - 148 mmol/L [facility] Potassium 4.1 3.5 - 5.3 mmol/L [facility] Chloride 103 92 - 108 mmol/L [facility] CO2 24 22 - 30 mmol/L [facility] AnGap 9 8 - 16 mmol/L [facility] Glucose 194(H) 70 - 100 mg/dL [facility] BUN 40(H) 6 - 20 mg/dL [facility] Creatinine 3.21(H) 0.70 - 1.25 mg/dL [facility] Calcium 8.2(L) 8.6 - 10.0 mg/dL [facility] eGFR (2020 CKD-EPI) 23(L) >=60 ml/min/1.7 3m2 [facility] Comment: The estimated glomerular filtration rate (eGFR) was calculated using the CKD-EPI 2020 creatinine equation, which does not include race as a factor. This equation is validated in individuals 18 years of age and older, and eGFR is normalized to a body surface area of 1.73m^2. Blood 11/14/2023 5:30 AM CDT 11/14/2023 5:56 AM CDT Zac Churchill MD LABORATORY [facility] [address] [address] * MAGNESIUM (11/14/2023 5:30 AM CDT) Pathologist [facility] Magnesium 2.4 1.6 - 2.6 mg/dL [facility] Blood 11/14/2023 5:30 AM CDT 11/14/2023 5:56 AM CDT Zac Churchill MD LABORATORY Performing Organization Address City/[facility]/ZIP Co de Phone Number [facility] [address] [address] * (ABNORMAL) CBC WITH PLATELET (11/14/2023 5:30 AM CDT) [facility] WBC 11.96(H) 4.00 - 10.00 k/cmm [facility] RBC 3.21(L) 4.60 - 6.00 m/cmm [facility] Hgb 9.1(L) 13.1 - 17.5 g/dL [facility] Hematocrit 28.5(L) 40.0 - 51.0 % [facility] MCV 88.8 80.0 - 100.0 fL [facility] MCH 28.3 25.0 - 32.0 pg [facility] MCHC 31.9 31.0 - 36.0 g/dL [facility] RDW 13.4 11.5 - 14.5 % [facility] Plt 372 150 - 400 k/cmm [facility] MPV 9.8 6.5 - 12.5 fL [facility] Blood 11/14/2023 5:30 AM CDT 11/14/2023 5:54 AM CDT Zac Churchill MD LABORATORY Performing Organization Address [facility]/ZIP Co de Phone Number [facility] [address] [address] * (ABNORMAL) POC GLUCOSE (11/13/2023 9:00 PM CDT) [facility] POC Glucose 206(H) 70 - 100 mg/dL [facility] Blood 11/13/2023 9:00 PM CDT Jessica Grullon MD LABORATORY [facility] [address] [place] [address], * (ABNORMAL) POC GLUCOSE (11/13/2023 4:44 PM CDT) POC Glucose 181(H) 70 - 100 mg/dL [facility] Blood 11/13/2023 4:44 PM CDT Jessica Grullon MD LABORATORY Performing Organization Address [facility] Co de Phone Number [address] [address], [place] * (ABNORMAL) POC GLUCOSE (11/13/2023 10:56 AM CDT) POC Glucose 170(H) 70 - 100 mg/dL [facility] Blood 11/13/2023 10:5 6 AM CDT Jessica Grullon MD LABORATORY Performing Organization Address [facility] Co de Phone Number [address] [address], [place] * URINE CHLAMYDIA AND NEISSERIAE GONORRHOEAE AMPLIFICATION (11/13/2023 10:45 AM CDT) Pathologist [facility] Chlamydia Amplification - Urine Negative Negative [facility] Comment:Test performed by tr anscription mediated amplification and is FDA approved for genital and urine specimens. N. Gonorrhea Amplification - Urine Negative Negative [facility] Comment:Test performed by tr anscription mediated amplification and is FDA approved for genital and urine specimens. Urine 11/13/2023 10:4 5 AM CDT 11/13/2023 3:03 PM CDT Narrative [facility] - 11/15/2023 12:29 PM CDT For Urines, use first void. Zac Churchill MD LABORATORY Performing Organization Address [facility]/ZIP Co de Phone Number [facility] [address] [address] * HEPATITIS B SURFACE ANTIGEN (11/13/2023 10:20 AM CDT) Pathologist [facility] HBV Surface Ag Nonreactive Nonreactive [facility] Comment: Testing performed at: [facility] [address] [address] Blood 11/13/2023 10:2 0 AM CDT 11/13/2023 10:27 AM CDT Zac Churchill MD LABORATORY Performing Organization Address City/[facility]/ZIP Co de Phone Number [facility] [address] [address] * HEPATITIS B SURFACE ANTIBODY (11/13/2023 10:20 AM CDT) [facility] HBsAb Quant <3.31 mIU/ml [facility] Comment:The Hepatitis B Surf gabriella Antibody quantitation is less than 8.00 mIU/mL. There is no evidence of an antibody response to a hepatitis B vaccination or recovery from a hepatitis B infection. This patient is presumed non-immune to hepatitis B. HBsAb Interpretation Nonreactive [facility] Blood 11/13/2023 10:2 0 AM CDT 11/13/2023 10:27 AM CDT Zac Churchill MD LABORATORY Performing Organization Address City/[facility]/ZIP Co de Phone Number [address] [address] * (ABNORMAL) POC GLUCOSE (11/13/2023 6:08 AM CDT) [facility] POC Glucose 154(H) 70 - 100 mg/dL [facility] Blood 11/13/2023 6:08 AM CDT Jessica Grullon MD LABORATORY [facility] [address] [place] [phone], * (ABNORMAL) CYSTATIN C (11/13/2023 5:18 AM CDT) Pathologist [facility] eGFR by Cystatin C 31(L) >=60 ml/min/1.7 3m2 [facility] Comment: Estimated GFR calculated using the CKD-EPI Cystatin C (2012) equation. Stage ? Description ?eGFR Range ??1.......Normal or increased eGFR.......90 or Greater ??2.......Mildly decreased eGFR..........60-89 ??3.......Moderately decreased eGFR......30-59 ??4.......Severely decreased eGFR........15-29 ??5.......Kidney Failure.................Less than 15 Cystatin C 2.11(H) 0.61 - 0.95 mg/L [facility] Blood 11/13/2023 5:18 AM CDT 11/13/2023 5:47 AM CDT Zac Churchill MD LABORATORY Performing Organization Address [facility] [facility] de Phone Number [facility] [place] [address] * VANCOMYCIN LEVEL (11/13/2023 5:18 AM CDT) [facility] Vancomycin 35.4 mcg/mL [facility] Comment:Expected Range (Trou gh): 10-20 mcg/ml Blood 11/13/2023 5:18 AM CDT 11/13/2023 5:47 AM CDT Zac Churchill MD LABORATORY Performing Organization Address [facility] Co de Phone Number [facility] [place] [phone] * (ABNORMAL) PHOSPHORUS (11/13/2023 5:18 AM CDT) [facility] Phosphorus 5.2(H) 2.5 - 4.5 mg/dL [facility] Blood 11/13/2023 5:18 AM CDT 11/13/2023 5:47 AM CDT Zac Churchill MD LABORATORY Performing Organization Address City/[facility]/ZIP Co de Phone Number [facility] [address] [address] * (ABNORMAL) PANEL BASIC METABOLIC (BMP) (11/13/2023 5:18 AM CDT) AnGap 12 8 - 16 mmol/L [facility] Sodium 137 135 - 148 mmol/L [facility] Chloride 103 92 - 108 mmol/L [facility] BUN 37(H) 6 - 20 mg/dL [facility] Calcium 7.8(L) 8.6 - 10.0 mg/dL [facility] CO2 22 22 - 30 mmol/L [facility] Glucose 168(H) 70 - 100 mg/dL [facility] Creatinine 3.04(H) 0.70 - 1.25 mg/dL [facility] Potassium 4.4 3.5 - 5.3 mmol/L [facility] eGFR (2020 CKD-EPI) 25(L) >=60 ml/min/1.7 3m2 [facility] Comment: The estimated [...] Zac Churchill MD LABORATORY Performing Organization Address City/[facility]/ZIP Co de Phone Number [facility] [address] [address] * MAGNESIUM (11/13/2023 5:18 AM CDT) Magnesium 2.3 1.6 - 2.6 mg/dL [facility] Blood 11/13/2023 5:18 AM CDT 11/13/2023 5:47 AM CDT Zac Churchill MD LABORATORY Performing Organization Address City/[facility]/ZIP Co de Phone Number [facility] [address] [address] * (ABNORMAL) CBC WITH PLATELET (11/13/2023 5:18 AM CDT) WBC 13.27(H) 4.00 - 10.00 k/cmm [facility] RBC 3.28(L) 4.60 - 6.00 m/cmm [facility] Hgb 9.2(L) 13.1 - 17.5 g/dL [facility] Hematocrit 30.0(L) 40.0 - 51.0 % [facility] MCV 91.5 80.0 - 100.0 fL [facility] MCH 28.0 25.0 - 32.0 pg [facility] MCHC 30.7(L) 31.0 - 36.0 g/dL [facility] RDW 13.5 11.5 - 14.5 % [facility] Plt 317 150 - 400 k/cmm [facility] MPV 10.1 6.5 - 12.5 fL [facility] Blood 11/13/2023 5:18 AM CDT 11/13/2023 5:47 AM CDT Zac Churchill MD LABORATORY Performing Organization Address [facility] Co de Phone Number [facility] [address] [address] * RPR SYPHILIS SCREEN (11/12/2023 11:10 PM CDT) RPR Screen Non-Reactive Non-Reacti ve [facility] RPR Titer Not Reflexed [facility] Blood 11/12/2023 11:1 0 PM CDT 11/12/2023 11:40 PM CDT Zac Churchill MD LABORATORY Performing Organization Address City/[facility]/ZIP Co de Phone Number [facility] [address] [address] * (ABNORMAL) POC GLUCOSE (11/12/2023 8:47 PM CDT) POC Glucose 196(H) 70 - 100 mg/dL [facility] Blood 11/12/2023 8:47 PM CDT Jessica Grullon MD LABORATORY Performing Organization Address [facility] de Phone Number [facility] [address] * (ABNORMAL) POC GLUCOSE (11/12/2023 4:41 PM CDT) [facility] POC Glucose 172(H) 70 - 100 mg/dL [facility] Blood 11/12/2023 4:41 PM CDT Jessica Grullon MD LABORATORY Performing Organization Address [facility] Phone Number [facility] [place] [address], * VANCOMYCIN LEVEL (11/12/2023 1:22 PM CDT) Pathologist [facility] Vancomycin 47.5 mcg/mL [facility] Comment:Expected Range (Trou gh): 10-20 mcg/ml Blood 11/12/2023 1:22 PM CDT 11/12/2023 1:34 PM CDT Narrative [facility] - 11/12/2023 2:28 PM CDT Peak or trough:->Trough Zac Churchill MD LABORATORY Performing Organization Address City/[facility] Co de Phone Number [facility] [place] [address] * (ABNORMAL) CYSTATIN C (11/12/2023 11:36 AM CDT) Cystatin C 2.20(H) 0.61 - 0.95 mg/L [facility] eGFR by Cystatin C 29(L) >=60 ml/min/1.7 3m2 [facility] Comment: Estimated GFR calculated using the CKD-EPI Cystatin C (2012) equation. Stage ? Description ?eGFR Range ??1.......Normal or increased eGFR.......90 or Greater ??2.......Mildly decreased eGFR..........60-89 ??3.......Moderately decreased eGFR......30-59 ??4.......Severely decreased eGFR........15-29 ??5.......Kidney Failure.................Less than 15 Blood 11/12/2023 11:3 6 AM CDT 11/12/2023 2:53 PM CDT Zac Churchill MD LABORATORY Performing Organization Address [facility] de Phone Number [facility] [place] [phone] * (ABNORMAL) PHOSPHORUS (11/12/2023 11:36 AM CDT) Phosphorus 5.8(H) 2.5 - 4.5 mg/dL [facility] Blood 11/12/2023 11:3 6 AM CDT 11/12/2023 11:49 AM CDT Zac Churchill MD LABORATORY Performing Organization Address [facility] de Phone Number [facility] [address] [address] * (ABNORMAL) PANEL BASIC METABOLIC (BMP) (11/12/2023 11:36 AM CDT) Sodium 137 135 - 148 mmol/L [facility] Potassium 4.9 3.5 - 5.3 mmol/L [facility] Chloride 104 92 - 108 mmol/L [facility] CO2 23 22 - 30 mmol/L [facility] AnGap 10 8 - 16 mmol/L [facility] Glucose 160(H) 70 - 100 mg/dL [facility] BUN 29(H) 6 - 20 mg/dL [facility] Creatinine 2.24(H) 0.70 - 1.25 mg/dL [facility] Calcium 7.8(L) 8.6 - 10.0 mg/dL [facility] eGFR (2020 CKD-EPI) 36(L) >=60 ml/min/1.7 3m2 [facility] Comment: The estimated [...] Zac Churchill MD LABORATORY Performing Organization Address City/[facility]/ZIP Co de Phone Number [facility] [address] [address] * MAGNESIUM (11/12/2023 11:36 AM CDT) Magnesium 2.3 1.6 - 2.6 mg/dL [facility] Blood 11/12/2023 11:3 6 AM CDT 11/12/2023 11:49 AM CDT Zac Churchill MD LABORATORY Performing Organization Address City/[facility] Co de Phone Number [facility] [address] [address] * (ABNORMAL) CBC WITH PLATELET (11/12/2023 11:36 AM CDT) WBC 17.87(H) 4.00 - 10.00 k/cmm [facility] RBC 3.40(L) 4.60 - 6.00 m/cmm [facility] Hgb 9.6(L) 13.1 - 17.5 g/dL [facility] Hematocrit 31.1(L) 40.0 - 51.0 % [facility] MCV 91.5 80.0 - 100.0 fL [facility] MCH 28.2 25.0 - 32.0 pg [facility] MCHC 30.9(L) 31.0 - 36.0 g/dL [facility] RDW 13.6 11.5 - 14.5 % [facility] Plt 287 150 - 400 k/cmm [facility] MPV 10.5 6.5 - 12.5 fL [facility] Blood 11/12/2023 11:3 6 AM CDT 11/12/2023 11:48 AM CDT Zac Churchill MD LABORATORY Performing Organization Address City/[facility] Co de Phone Number [facility] [address] [place] [address] * (ABNORMAL) POC GLUCOSE (11/12/2023 11:05 AM CDT) POC Glucose 147(H) 70 - 100 mg/dL [facility] Blood 11/12/2023 11:0 5 AM CDT Jessica Grullon MD LABORATORY Performing Organization Address [facility] Co de Phone Number [facility] [address] * (ABNORMAL) POC GLUCOSE (11/12/2023 10:09 AM CDT) POC Glucose 163(H) 70 - 100 mg/dL [facility] Blood 11/12/2023 10:0 9 AM CDT Jessica Grullon MD LABORATORY Performing Organization Address [facility] Co de Phone Number [facility] [address] * (ABNORMAL) POC GLUCOSE (11/12/2023 9:04 AM CDT) POC Glucose 146(H) 70 - 100 mg/dL [facility] Blood 11/12/2023 9:04 AM CDT Jessica Grullon MD LABORATORY [facility] [address] [place] [address], [place] * (ABNORMAL) POC GLUCOSE (11/12/2023 8:01 AM CDT) POC Glucose 152(H) 70 - 100 mg/dL [facility] Blood 11/12/2023 8:01 AM CDT Jessica Grullon MD LABORATORY Performing Organization Address City/[facility]/ZIP Co de Phone Number [facility] [address] [place] [address], [place] * (ABNORMAL) POC GLUCOSE (11/12/2023 7:00 AM CDT) POC Glucose 147(H) 70 - 100 mg/dL [facility] Blood 11/12/2023 7:00 AM CDT Jessica Grullon MD LABORATORY Performing Organization Address City/[facility]/ZIP Co de Phone Number [facility] [address] [place] [address], [place] * (ABNORMAL) POC GLUCOSE (11/12/2023 6:02 AM CDT) POC Glucose 169(H) 70 - 100 mg/dL [facility] Blood 11/12/2023 6:02 AM CDT Jessica Grullon MD LABORATORY [facility] [address] [place] [address], [place] * (ABNORMAL) POC GLUCOSE (11/12/2023 5:00 AM CDT) POC Glucose 166(H) 70 - 100 mg/dL [facility] Blood 11/12/2023 5:00 AM CDT Jessica Grullon MD LABORATORY [facility] [address] [place] [address], [place] * (ABNORMAL) POC GLUCOSE (11/12/2023 4:02 AM CDT) POC Glucose 178(H) 70 - 100 mg/dL [facility] Blood 11/12/2023 4:02 AM CDT Jessica Grullon MD LABORATORY Performing Organization Address City/[facility] Co de Phone Number [facility] [address] [place] [address], [place] * (ABNORMAL) POC GLUCOSE (11/12/2023 3:17 AM CDT) POC Glucose 176(H) 70 - 100 mg/dL [facility] Blood 11/12/2023 3:17 AM CDT Jessica Grullon MD LABORATORY Performing Organization Address City/[facility] Co de Phone Number [facility] [address] [place] [address], [place] * (ABNORMAL) POC GLUCOSE (11/12/2023 2:14 AM CDT) POC Glucose 197(H) 70 - 100 mg/dL [facility] Blood 11/12/2023 2:14 AM CDT Jessica Grullon MD LABORATORY Performing Organization Address City/[facility]/ZIP Co de Phone Number [facility] [address] [place] [phone], [place] * (ABNORMAL) POC GLUCOSE (11/12/2023 1:02 AM CDT) POC Glucose 195(H) 70 - 100 mg/dL [facility] Blood 11/12/2023 1:02 AM CDT Jessica Grullon MD LABORATORY [facility] [address] [place] [address], [place] * (ABNORMAL) POC GLUCOSE (11/12/2023 12:01 AM CDT) POC Glucose 180(H) 70 - 100 mg/dL [facility] Blood 11/12/2023 12:0 1 AM CDT Jessica Grullon MD LABORATORY Performing Organization Address City/[facility]/ZIP Co de Phone Number [facility] [address] [place] [address], [place] * (ABNORMAL) POC GLUCOSE (11/11/2023 11:01 PM CDT) POC Glucose 185(H) 70 - 100 mg/dL [facility] Blood 11/11/2023 11:0 1 PM CDT Jessica Grullon MD LABORATORY Performing Organization Address City/[facility]/ZIP Co de Phone Number [facility] [address] [place] [address], [place] * (ABNORMAL) POC GLUCOSE (11/11/2023 10:00 PM CDT) POC Glucose 167(H) 70 - 100 mg/dL [facility] Blood 11/11/2023 10:0 0 PM CDT Jessica Grullon MD LABORATORY Performing Organization Address City/[facility]/ZIP Co de Phone Number [facility] [address] [place] [address], [place] * (ABNORMAL) POC GLUCOSE (11/11/2023 9:01 PM CDT) POC Glucose 148(H) 70 - 100 mg/dL [facility] Blood 11/11/2023 9:01 PM CDT Jessica Grullon MD LABORATORY Performing Organization Address [facility] Co de Phone Number [facility] [address] [place] [address], * (ABNORMAL) POC GLUCOSE (11/11/2023 8:02 PM CDT) POC Glucose 167(H) 70 - 100 mg/dL [facility] Blood 11/11/2023 8:02 PM CDT Jessica Grullon MD LABORATORY Performing Organization Address [facility] Co de Phone Number [facility] [address] [place] [address], [place] * (ABNORMAL) POC GLUCOSE (11/11/2023 7:02 PM CDT) POC Glucose 180(H) 70 - 100 mg/dL [facility] Blood 11/11/2023 7:02 PM CDT Jessica Grullon MD LABORATORY Performing Organization Address [facility] Co de Phone Number [facility] [address] [place] [address], [place] * (ABNORMAL) PANEL BASIC METABOLIC (BMP) (11/11/2023 6:42 PM CDT) Sodium 138 135 - 148 mmol/L [facility] Potassium 4.3 3.5 - 5.3 mmol/L [facility] Chloride 103 92 - 108 mmol/L [facility] CO2 25 22 - 30 mmol/L [facility] AnGap 10 8 - 16 mmol/L [facility] Glucose 181(H) 70 - 100 mg/dL [facility] BUN 21(H) 6 - 20 mg/dL [facility] Creatinine 1.03 0.70 - 1.25 mg/dL [facility] Calcium 8.0(L) 8.6 - 10.0 mg/dL [facility] eGFR (2020 CKD-EPI) 91 >=60 ml/min/1.7 3m2 [facility] Comment: The estimated glomerular filtration rate (eGFR) was calculated using the CKD-EPI 2020 creatinine equation, which does not include race as a factor. This equation is validated in individuals 18 years of age and older, and eGFR is normalized to a body surface area of 1.73m^2. Blood 11/11/2023 6:42 PM CDT 11/11/2023 6:47 PM CDT Zac Churchill MD LABORATORY [facility] [place] [address] * (ABNORMAL) POC GLUCOSE (11/11/2023 6:05 PM CDT) Pathologist [facility] POC Glucose 173(H) 70 - 100 mg/dL [facility] Blood 11/11/2023 6:05 PM CDT Jessica Grullon MD LABORATORY Performing Organization Address City/[facility]/ZIP Co de Phone Number [facility] [place] [address], [place] * (ABNORMAL) POC GLUCOSE (11/11/2023 5:01 PM CDT) Pathologist [facility] POC Glucose 163(H) 70 - 100 mg/dL [facility] Blood 11/11/2023 5:01 PM CDT Jessica Grullon MD LABORATORY [facility] [address] [place] [address], * (ABNORMAL) POC GLUCOSE (11/11/2023 3:47 PM CDT) POC Glucose 138(H) 70 - 100 mg/dL [facility] Blood 11/11/2023 3:47 PM CDT Jessica Grullon MD LABORATORY Performing Organization Address City/[facility]/ZIP Co de Phone Number [facility] [address] [place] [address], [place] * (ABNORMAL) POC GLUCOSE (11/11/2023 3:00 PM CDT) POC Glucose 147(H) 70 - 100 mg/dL [facility] Blood 11/11/2023 3:00 PM CDT Jessica Grullon MD LABORATORY Performing Organization Address City/[facility] Co de Phone Number [facility] [address] [place] [phone], [place] * (ABNORMAL) POC GLUCOSE (11/11/2023 2:12 PM CDT) POC Glucose 147(H) 70 - 100 mg/dL [facility] Blood 11/11/2023 2:12 PM CDT Jessica Grullon MD LABORATORY Performing Organization Address City/[facility]/ZIP Co de Phone Number [facility] [address] [place] [address], [place] * (ABNORMAL) POC GLUCOSE (11/11/2023 1:02 PM CDT) POC Glucose 126(H) 70 - 100 mg/dL [facility] Blood 11/11/2023 1:02 PM CDT Jessica Grullon MD LABORATORY Performing Organization Address City/[facility]/ZIP Co de Phone Number [facility] [address] [place] [address], [place] * (ABNORMAL) POC GLUCOSE (11/11/2023 12:01 PM CDT) POC Glucose 141(H) 70 - 100 mg/dL [facility] Blood 11/11/2023 12:0 1 PM CDT Jessica Grullon MD LABORATORY Performing Organization Address City/[facility]/ZIP Co de Phone Number [facility] [address] [place] [phone], [place] * (ABNORMAL) POC GLUCOSE (11/11/2023 11:03 AM CDT) POC Glucose 163(H) 70 - 100 mg/dL [facility] Blood 11/11/2023 11:0 3 AM CDT Jessica Grullon MD LABORATORY Performing Organization Address City/[facility] Co de Phone Number [facility] [address] [place] [address], [place] * (ABNORMAL) POC GLUCOSE (11/11/2023 9:59 AM CDT) POC Glucose 170(H) 70 - 100 mg/dL [facility] Blood 11/11/2023 9:59 AM CDT Jessica Grullon MD LABORATORY Performing Organization Address City/[facility]/ZIP Co de Phone Number [facility] [address] [place] [address], [place] * (ABNORMAL) POC GLUCOSE (11/11/2023 8:56 AM CDT) POC Glucose 166(H) 70 - 100 mg/dL [facility] Blood 11/11/2023 8:56 AM CDT Jessica Grullon MD LABORATORY [facility] [address] [place] [address], * (ABNORMAL) POC GLUCOSE (11/11/2023 8:01 AM CDT) [facility] POC Glucose 172(H) 70 - 100 mg/dL [facility] Blood 11/11/2023 8:01 AM CDT Jessica Grullon MD LABORATORY Performing Organization Address City/[facility]/ZIP Co de Phone Number [facility] [address] [place] [phone], * ICU PHOSPHORUS (11/11/2023 5:36 AM CDT) [facility] Phosphorus 2.9 2.5 - 4.5 mg/dL [facility] Blood 11/11/2023 5:36 AM CDT 11/11/2023 5:45 AM CDT Zac Churchill MD LABORATORY Performing Organization Address City/[facility]/ZIP Co de Phone Number [facility] [place] [phone] * (ABNORMAL) ICU MAGNESIUM (11/11/2023 5:36 AM CDT) [facility] Magnesium 1.2(L) 1.6 - 2.6 mg/dL [facility] Blood 11/11/2023 5:36 AM CDT 11/11/2023 5:45 AM CDT Zac Churchill MD LABORATORY Performing Organization Address City/[facility]/ZIP Co de Phone Number [facility] [address] [address] * (ABNORMAL) ICU CBC WITH PLTS/AUTO DIFF (11/11/2023 5:36 AM CDT) [facility] WBC 17.41(H) 4.00 - 10.00 k/cmm [facility] RBC 2.72(L) 4.60 - 6.00 m/cmm [facility] Hgb 7.8(L) 13.1 - 17.5 g/dL [facility] Hematocrit 24.1(L) 40.0 - 51.0 % [facility] MCV 88.6 80.0 - 100.0 fL [facility] MCH 28.7 25.0 - 32.0 pg [facility] MCHC 32.4 31.0 - 36.0 g/dL [facility] RDW 13.2 11.5 - 14.5 % [facility] Plt 203 150 - 400 k/cmm [facility] MPV 10.1 6.5 - 12.5 fL [facility] Automated Abs Neutrophil 13.29(H) 1.70 - 6.50 k/cmm [facility] Comment:Preliminary ANC, Fin al Result to Follow [place] Cell Slight [facility] Toxic Gran Present [facility] Toxic Vac Present [facility] Abs Neutrophil 13.41(H) 1.70 - 6.50 k/cmm [facility] Abs Lymphocyte 2.96 0.80 - 4.00 k/cmm [facility] Abs Monocyte 0.87 0.20 - 1.00 k/cmm [facility] Abs Basophil 0.17 0.00 - 0.20 k/cmm [facility] Blood 11/11/2023 5:36 AM CDT 11/11/2023 5:45 AM CDT Zac Churchill MD LABORATORY [facility] [address] [address] * (ABNORMAL) ICU PANEL BASIC METABOLIC (BMP) (11/11/2023 5:36 AM CDT) AnGap 9 8 - 16 mmol/L [facility] BUN 15 6 - 20 mg/dL [facility] Calcium 6.0(AA) 8.6 - 10.0 mg/dL [facility] Comment:Critical Result Low Chloride 108 92 - 108 mmol/L [facility] CO2 22 22 - 30 mmol/L [facility] Glucose 135(H) 70 - 100 mg/dL [facility] Creatinine 0.93 0.70 - 1.25 mg/dL [facility] Potassium 3.2(L) 3.5 - 5.3 mmol/L [facility] eGFR (2020 CKD-EPI) 103 >=60 ml/min/1.7 3m2 [facility] Comment: The estimated glomerular filtration rate (eGFR) was calculated using the CKD-EPI 2020 creatinine equation, which does not include race as a factor. This equation is validated in individuals 18 years of age and older, and eGFR is normalized to a body surface area of 1.73m^2. Sodium 139 135 - 148 mmol/L [facility] Blood 11/11/2023 5:36 AM CDT 11/11/2023 5:45 AM CDT Narrative [facility] - 11/11/2023 6:25 AM CDT Critical value for Calcium called to and read back by Sheila Dias RN in STN4 at 11/11/2023 06:24:12 CDT by Larry Fuchs MLS. Zac Churchill MD LABORATORY Performing Organization Address [facility] Co de Phone Number [facility] [place] [address] * (ABNORMAL) POC GLUCOSE (11/11/2023 5:28 AM CDT) POC Glucose 149(H) 70 - 100 mg/dL [facility] Blood 11/11/2023 5:28 AM CDT Jessica Grullon MD LABORATORY Performing Organization Address [facility] Co de Phone Number [facility] [address] [place] [address] * (ABNORMAL) POC GLUCOSE (11/11/2023 4:29 AM CDT) POC Glucose 159(H) 70 - 100 mg/dL [facility] Blood 11/11/2023 4:29 AM CDT Jessica Grullon MD LABORATORY Performing Organization Address [facility] Co de Phone Number [facility] [address] [place], [place] [id number], [place] * (ABNORMAL) POC GLUCOSE (11/11/2023 3:28 AM CDT) POC Glucose 153(H) 70 - 100 mg/dL [facility] Blood 11/11/2023 3:28 AM CDT Jessica Grullon MD LABORATORY Performing Organization Address [facility] Co de Phone Number [facility] [address] [place] [address], [place] * (ABNORMAL) POC GLUCOSE (11/11/2023 2:18 AM CDT) POC Glucose 172(H) 70 - 100 mg/dL [facility] Blood 11/11/2023 2:18 AM CDT Jessica Grullon MD LABORATORY Performing Organization Address [facility] Co de Phone Number [facility] [address] [place] [address], [place] * (ABNORMAL) POC GLUCOSE (11/11/2023 1:03 AM CDT) POC Glucose 171(H) 70 - 100 mg/dL [facility] Blood 11/11/2023 1:03 AM CDT Jessica Grullon MD LABORATORY Performing Organization Address [facility] Co de Phone Number [facility] [address] [place] [address], [place] * (ABNORMAL) POC GLUCOSE (11/10/2023 11:50 PM CDT) POC Glucose 201(H) 70 - 100 mg/dL [facility] Blood 11/10/2023 11:5 0 PM CDT Jessica Grullon MD LABORATORY Performing Organization Address [facility]/ZIP Co de Phone Number [facility] [address] [place] [id number], [place] * (ABNORMAL) POC GLUCOSE (11/10/2023 10:39 PM CDT) POC Glucose 192(H) 70 - 100 mg/dL [facility] Blood 11/10/2023 10:3 9 PM CDT Jessica Grullon MD LABORATORY Performing Organization Address City/[facility] Co de Phone Number [facility] [address] [place] [phone], [place] * (ABNORMAL) TROP 6H (11/10/2023 10:15 PM CDT) 6H Trop 35 <=35 ng/L [facility] 6H Delta Significan t(A) Not Significant [facility] Blood 11/10/2023 10:1 5 PM CDT 11/10/2023 10:31 PM CDT Jessica Grullon MD LABORATORY Performing Organization Address [facility] Co de Phone Number [facility] [address] [place] [phone] * (ABNORMAL) POC GLUCOSE (11/10/2023 9:36 PM CDT) POC Glucose 200(H) 70 - 100 mg/dL [facility]INT [facility] CARE Blood 11/10/2023 9:36 PM CDT Jessica Grullon MD LABORATORY Performing Organization Address City/[facility] Co de Phone Number [facility] [address] [place] [address], [place] * (ABNORMAL) POC GLUCOSE (11/10/2023 8:17 PM CDT) POC Glucose 221(H) 70 - 100 mg/dL [facility] Blood 11/10/2023 8:17 PM CDT Jessica Grullon MD LABORATORY Performing Organization Address [facility] [place] [address], * (ABNORMAL) POC GLUCOSE (11/10/2023 7:07 PM CDT) POC Glucose 227(H) 70 - 100 mg/dL [facility] Blood 11/10/2023 7:07 PM CDT Jessica Grullon MD LABORATORY Performing Organization Address [facility] [place] [address], [place] * (ABNORMAL) TROP 2H (11/10/2023 6:34 PM CDT) 2H Trop 21 <=35 ng/L [facility] 2H Delta Significan t(A) Not Significant [facility] Blood 11/10/2023 6:34 PM CDT 11/10/2023 6:37 PM CDT Jessica Grullon MD LABORATORY Performing Organization Address [facility] Co de Phone Number [address] [address] * (ABNORMAL) LACTATE (LACTIC ACID) (11/10/2023 6:34 PM CDT) Lactate 14.6(H) 0.7 - 2.1 mmol/L [facility] Blood 11/10/2023 6:34 PM CDT 11/10/2023 6:37 PM CDT Narrative [facility] - 11/10/2023 6:41 PM CDT Send specimen on ice! Jessica Grullon MD LABORATORY Performing Organization Address City/[facility] Co de Phone Number [facility] [place] [address] [place] [address] * (ABNORMAL) POC GLUCOSE (11/10/2023 6:07 PM CDT) POC Glucose 201(H) 70 - 100 mg/dL [facility] POINT [facility]ARE Blood 11/10/2023 6:07 PM CDT Jessica Grullon MD LABORATORY Performing Organization Address [facility] Co de Phone Number [facility] [address] [place] [address], [place] * (ABNORMAL) POC GLUCOSE (11/10/2023 5:30 PM CDT) POC Glucose 197(H) 70 - 100 mg/dL [facility] POINT [facility] Blood 11/10/2023 5:30 PM CDT Jessica Grullon MD LABORATORY Performing Organization Address [facility] de Phone Number [facility] POINT [address] [address], [place] * M TUBERCULOSIS AMPLIFICATION (11/10/2023 5:13 PM CDT) Pathologist [facility] Final Report M. tuberculosis complex DNA not detected. [facility] Tissue STRUCTURE OF PERINEAL BODY / Unknown 11/10/2023 5:13 PM CDT 11/11/2023 10:50 AM CDT Comment:2:Perineal tissue Narrative [facility] - 11/11/2023 3:22 PM CDT This assay uses PCR nucleic acid amplification to detect Mycobacterium tuberculosis complex DNA. ??This test was developed and its performance characteristics determined by [facility]. ??It has not been cleared or approved by the U.S. Food and Drug Administration. ??FDA does not require this test to go through premarket FDA review. ??This test is used for clinical purposes. ??It should not be regarded as investigational or for research. ??[facility] is certified under the Clinical Laboratory Improvement Amendments of 1988 (CLIA) as qualified to perform high complexity clinical laboratory testing. Zac Churchill MD LAB MICROBIOLOGY Performing Organization Address City/[facility]/ZIP Co de Phone Number [facility] [address] [address] * (ABNORMAL) TISSUE CULTURE:INCLUDES GRAM STAIN (11/10/2023 5:13 PM CDT) Final Report Positive Culture Rare Actinomyces species isolated. Most closely resembles Actinomyces hominis. Rare Staphylococcus pettenkoferi isolated. A member of the coagulase-negative Staphylococci. Staphylococcus epidermidis isolated in broth only. No further work-up. Plates held one week. (POS) [facility] Organism ACTINOMYCES SPECIES(POS) [facility] Organism STAPHYLOCOCCUS PETTENKOFERI(POS) [facility] Organism STAPHYLOCOCCUS EPIDERMIDIS(POS) [facility] Gram Stain Report Positive Gram stain Gram stain electronically reported to and acknowledged by: Fermin Osborn MD for Burn on 11/10/2023 18:43:03 by [facility] Rare WBC's seen. Many gram positive cocci in clusters. (POS) [facility] Tissue STRUCTURE OF PERINEAL BODY / Unknown 11/10/2023 5:13 PM CDT Zac Churchill MD LAB MICROBIOLOGY Performing Organization Address [facility]/ZIP Co de Phone Number [facility] [address] [address] * FUNGUS CULTURE:INCLUDES SUHAS (11/10/2023 5:13 PM CDT) Final Report No fungus isolated. [facility] SUHAS Prep No fungal elements seen. [facility] Tissue STRUCTURE OF PERINEAL BODY / Unknown 11/10/2023 5:13 PM CDT Zac Churchill MD LAB MICROBIOLOGY Performing Organization Address City/[facility]/ZIP Co de Phone Number [facility] [address] [address] * (ABNORMAL) ANAEROBE CULTURE (11/10/2023 5:13 PM CDT) Final Report Positive Culture Many mixed anaerobes present. (POS) [facility] Tissue STRUCTURE OF PERINEAL BODY / Unknown 11/10/2023 5:13 PM CDT Zac Churchill MD LAB MICROBIOLOGY Performing Organization Address [facility] Co de Phone Number [facility] [address] [address] * AFB CULTURE:INCLUDES AFB SMEAR (11/10/2023 5:13 PM CDT) Final Report No acid fast bacilli isolated. [facility] Acid Fast Stain No acid fast bacilli seen. [facility] Tissue STRUCTURE OF PERINEAL BODY / Unknown 11/10/2023 5:13 PM CDT Zac Churchill MD LAB MICROBIOLOGY Performing Organization Address [facility] de Phone Number [facility] [address] [address] * (ABNORMAL) WOUND CULTURE:GRAM STAIN OPTIONAL (11/10/2023 5:12 PM CDT) Final Report Rare Actinomyces species isolated. Most closely resembles Actinomyces hominis. One colony Staphylococcus epidermidis isolated. (POS) [facility] Organism ACTINOMYCES SPECIES(POS) [facility] Organism STAPHYLOCOCCUS EPIDERMIDIS(POS) [facility] Gram Stain Report Many WBC's seen. Many gram positive cocci in clusters. [facility] Swab STRUCTURE OF PERINEAL BODY / Unknown 11/10/2023 5:12 PM CDT Narrative [facility] - 11/12/2023 3:34 PM CDT Do you want a gram stain: No Zac Churchill MD LAB MICROBIOLOGY Performing Organization Address [facility] Co de Phone Number [facility] [address] [address] * FUNGUS CULTURE:INCLUDES SUHAS (11/10/2023 5:12 PM CDT) Final Report No fungus isolated. [facility] SUHAS Prep No fungal elements seen. [facility] Swab STRUCTURE OF PERINEAL BODY / Unknown 11/10/2023 5:12 PM CDT Zac Churchill MD LAB MICROBIOLOGY Performing Organization Address [facility] Co de Phone Number [facility] [address] [address] * ANAEROBE CULTURE (11/10/2023 5:12 PM CDT) Final Report Moderate mixed anaerobes present. [facility] Swab STRUCTURE OF PERINEAL BODY / Unknown 11/10/2023 5:12 PM CDT Zac Churchill MD LAB MICROBIOLOGY Performing Organization Address [facility] Co de Phone Number [facility] [address] [address] * (ABNORMAL) POC GLUCOSE (11/10/2023 4:28 PM CDT) POC Glucose 236(H) 70 - 100 mg/dL [facility] POINT [facility] CARE Blood 11/10/2023 4:28 PM CDT Jessica Grullon MD LABORATORY Performing Organization Address [facility] de Phone Number [facility] POINT OF [address] [address], * ED EKG (12-LEAD) (11/10/2023 3:21 PM CDT) 11/10/2023 3:21 PM CDT Impressions [facility] CVIS EKG ORDERS - 11/10/2023 3:21 PM CDT SINUS TACHYCARDIA MINIMAL ST DEPRESSION ??[0.025+ mV ST DEPRESSION] ABNORMAL QRS-T ANGLE ??[QRS-T AXIS DIFFERENCE > 60] NONSPECIFIC ST AND T WAVE ABNORMALITY. ABNORMAL ECG P-R Interval 138 ms QRS Interval 90 ms QT Interval 348 ms QTC Interval 405 ms P [place] 35 QRS [place] 1 T Wave [place] 148 Narrative Procedure Note Jessica Grullon MD - 11/10/2023 IMPRESSION [address]INUS TACHYCARDIA MINIMAL ST DEPRESSION [0.025+ mV ST DEPRESSION] ABNORMAL QRS-T ANGLE [QRS-T AXIS DIFFERENCE > 60] NONSPECIFIC ST AND T WAVE ABNORMALITY. ABNORMAL ECG P-R Interval 138 ms QRS Interval 90 ms QT Interval 348 ms QTC Interval 405 ms P [place] 35 QRS [place] 1 T Wave [place] 148 Jessica Grullon MD EKG [facility] EKG ORDERS * [...] scanning protocols, which may differ from the [facility] trauma protocols. Findings: ??Subcutaneous [...] CHERELLE - 11/10/2023 Indication: [facility] due toFournier's gangrene. No initial report accompanied the patient and/or Dr.ROCHELLE GRULLON requested an interpretation by me. Technique: CT scan of the left lower extremity done on 11/10/2023 with IVcontrast. 2 mm axial, sagittal and coronal reconstructions reviewed insoft tissue and bone windows, per the local institution's scanningprotocols, which may differ from the [facility] trauma protocols. Findings: Subcutaneous [...] scanning protocols, which may differ from the [facility] trauma protocols. Comparison: Same [...] institution's scanningprotocols, which may differ from the [facility] trauma protocols. Comparison: Same [...] (11/10/2023 2:40 PM CDT) Color YELLOW YELLOW [facility] Appearance CLEAR CLEAR [facility] Urine Glucose >=1000(A) NEGATIVE mg/dL [facility] Bili UA NEGATIVE NEGATIVE [facility] Ketones TRACE(A) NEGATIVE [facility] Blood Ur LARGE(A) Neg-Trace [facility] PH Urine 6.5 5.0 - 7.0 [facility] Protein Ur >=600(A) Neg-Trace [facility] Urobilinogen NORMAL NORMAL EU/dL [facility] Nitrite Ur NEGATIVE NEGATIVE [facility] Leuk Est NEGATIVE Neg-Trace [facility] WBC Ur 0-5 0 - 5 perHPF [facility] RBC Ur 11-20(A) 0 - 3 perHPF [facility] SQ EPITH 0-5 0 - 5 perHPF [facility] Mucus 1+ perLPF [facility] Bacteria UA PRESENT [facility] Comment:Presence of bacteria does not necessarily indicate a UTI. The presence of bacteria can indicate a non-clean catch urine specimen. Bacteria should be used in conjunction with other UA results and clinical presentation to assist in diagnosing an infection. Urinalysis Performed at: [facility] Specific Royal 1.020 1.003 - 1.030 [facility] Urine 11/10/2023 2:40 PM CDT 11/10/2023 2:47 PM CDT Jessica Grullon MD LABORATORY Performing Organization Address [facility] Co de Phone Number [facility] [address] [address] * BLOOD AEROBIC/ANAEROBIC CULTURE (11/10/2023 2:39 PM CDT) Final Report No growth after 5 days. [facility] Blood (Peripheral) 11/10/2023 2:39 PM CDT 11/10/2023 4:09 PM CDT Jessica Grullon MD LAB MICROBIOLOGY Performing Organization Address [facility]/ZIP Co de Phone Number [facility] [address] [address] * BLOOD AEROBIC/ANAEROBIC CULTURE (11/10/2023 2:37 PM CDT) Pathologist [facility] Final Report No growth after 5 days. [facility] Blood (Peripheral) 11/10/2023 2:37 PM CDT 11/10/2023 4:09 PM CDT Jessica Grullon MD LAB MICROBIOLOGY Performing Organization Address [facility] Co de Phone Number [facility] [address] [address] * (ABNORMAL) SED RATE (ESR) (11/10/2023 2:31 PM CDT) Pathologist [facility] Sed Rate 120(H) 2 - 10 mm/hr [facility] Blood 11/10/2023 2:31 PM CDT 11/10/2023 2:57 PM CDT Jessica Grullon MD LABORATORY Performing Organization Address [facility] Co de Phone Number [facility] [address] [address] * EXTRA TUBE - SST (11/10/2023 2:31 PM CDT) Pathologist [facility] SST TUBE Stored [facility] Comment:SST tubes (Serum Sep arator) are stored in the lab for 3 days from the collection date. Blood 11/10/2023 2:31 PM CDT 11/10/2023 2:43 PM CDT Jessica Grullon MD LABORATORY Performing Organization Address [facility] Co de Phone Number [facility] [address] [address] * (ABNORMAL) HS TROPONIN (11/10/2023 2:31 PM CDT) Pathologist [facility] HS Troponin I 49(H) <=35 ng/L [facility] Blood 11/10/2023 2:31 PM CDT 11/10/2023 2:57 PM CDT Narrative [facility] - 11/10/2023 3:25 PM CDT First Occurrence of the Troponin order is to be drawn Stat by Nursing staff on the unit. Jessica Grullon MD LABORATORY Performing Organization Address [facility] Co de Phone Number [facility] [address] [address] * ETHANOL (ETOH) LEVEL, BLOOD (11/10/2023 2:31 PM CDT) Ethanol Negative Negative g/dL [facility] Blood 11/10/2023 2:31 PM CDT 11/10/2023 2:57 PM CDT Jessica Grullon MD LABORATORY Performing Organization Address [facility] Co de Phone Number [facility] [address] [address] * PTT (APTT) (11/10/2023 2:31 PM CDT) Pathologist [facility] APTT 32.9 25.0 - 37.0 sec [facility] Blood 11/10/2023 2:31 PM CDT 11/10/2023 2:57 PM CDT Jessica Grullon MD LABORATORY Performing Organization Address [facility] Co de Phone Number [facility] [address] [address] * ED INR (11/10/2023 2:31 PM CDT) Pathologist [facility] ED INR 1.1 0.8 - 1.1 [facility] Comment: Warfarin Therapeutic Range: Standard Intensity: 2.0 - 3.0 High Intensity: 2.5 - 3.5 This is a rapid INR screening test which uses whole blood; results may infrequently differ from plasma INR results. If medication adjustments/dosing are required a PT/INR test ([id number]) should be ordered and performed in the main laboratory. Blood 11/10/2023 2:31 PM CDT 11/10/2023 2:41 PM CDT Jessica Grullon MD LABORATORY Performing Organization Address [facility] Co de Phone Number [facility] [address] [address] * (ABNORMAL) LACTATE (LACTIC ACID) (11/10/2023 2:31 PM CDT) Pathologist [facility] Lactate 2.3(H) 0.7 - 2.1 mmol/L [facility] Blood 11/10/2023 2:31 PM CDT 11/10/2023 2:45 PM CDT Narrative [facility] - 11/10/2023 2:49 PM CDT Send specimen on ice! Jessica Grullon MD LABORATORY Performing Organization Address [facility] Co de Phone Number [facility] [address] [address] * (ABNORMAL) FIBRINOGEN (11/10/2023 2:31 PM CDT) [facility] Fibrinogen >1,000(H) 200 - 400 mg/dL [facility] Blood 11/10/2023 2:31 PM CDT 11/10/2023 2:57 PM CDT Jessica Grullon MD LABORATORY Performing Organization Address [facility] Co de Phone Number [facility] [address] [address] * (ABNORMAL) PANEL HEPATIC FUNCTION (11/10/2023 2:31 PM CDT) Pathologist [facility] Total Protein 7.1 6.4 - 8.3 g/dL [facility] Albumin 2.9(L) 3.8 - 5.1 g/dL [facility] Bili Total 0.3 <=1.2 mg/dL [facility] Bili Direct <0.2 <=0.3 mg/dL [facility] Alk Phos 104 40 - 129 IU/L [facility] Comment:No reference range e stablished for patients <18 years old. ALT (SGPT) 9 <=41 IU/L [facility] AST(SGOT) 14 5 - 40 IU/L [facility] Blood 11/10/2023 2:31 PM CDT 11/10/2023 2:57 PM CDT Jessica Grullon MD LABORATORY Performing Organization Address City/[facility]/ZIP Co de Phone Number [facility] [address] [address] * (ABNORMAL) ED HEMOGLOBIN TOTAL (ED ONLY) (11/10/2023 2:31 PM CDT) Hgb 12.4(L) 13.1 - 17.5 g/dL [facility] Blood 11/10/2023 2:31 PM CDT 11/10/2023 2:45 PM CDT Jessica Grullon MD LABORATORY Performing Organization Address [facility] Co de Phone Number [facility] [address] [address] * (ABNORMAL) ED CHEMISTRY LABS(NA,K,CL,CO2,GLU,CREAT,CA-IONIZED,ANION GAP) (11/10/2023 2:31 PM CDT) Sodium 133(L) 135 - 148 mmol/L [facility] Potassium 3.7 3.5 - 5.3 mmol/L [facility] Chloride 93 92 - 108 mmol/L [facility] AnGap 12 8 - 16 mmol/L [facility] Glucose 304(H) 70 - 100 mg/dL [facility] ICA, Actual 4.14(L) 4.40 - 5.20 mg/dL [facility] ICA, pH Corrected 4.29(L) 4.40 - 5.20 mg/dL [facility] Creatinine 0.98 0.70 - 1.25 mg/dL [facility] BICARB 27(H) 22 - 26 mEq/L [facility] eGFR (2020 CKD-EPI) 97 >=60 ml/min/1.7 3m2 [facility] Comment: The estimated glomerular filtration rate (eGFR) was calculated using the CKD-EPI 2020 creatinine equation, which does not include race as a factor. This equation is validated in individuals 18 years of age and older, and eGFR is normalized to a body surface area of 1.73m^2. Blood 11/10/2023 2:31 PM CDT 11/10/2023 2:45 PM CDT Jessica Grullon MD LABORATORY [facility] [address] [address] * (ABNORMAL) CBC WITH PLTS/AUTO DIFF (11/10/2023 2:31 PM CDT) WBC 21.95(H) 4.00 - 10.00 k/cmm [facility] RBC 4.26(L) 4.60 - 6.00 m/cmm [facility] Hgb 12.0(L) 13.1 - 17.5 g/dL [facility] Hematocrit 36.3(L) 40.0 - 51.0 % [facility] MCV 85.2 80.0 - 100.0 fL [facility] MCH 28.2 25.0 - 32.0 pg [facility] MCHC 33.1 31.0 - 36.0 g/dL [facility] RDW 12.9 11.5 - 14.5 % [facility] Plt 262 150 - 400 k/cmm [facility] MPV 10.1 6.5 - 12.5 fL [facility] Automated Abs Neutrophil 18.29(H) 1.70 - 6.50 k/cmm [facility] Comment:Preliminary ANC, Fin al Result to Follow Abs Immature Granulocyte 0.26(H) 0.00 - 0.09 k/cmm [facility] Comment:The Immature Granulo cyte Absolute count contains metamyelocytes and myelocytes. Abs Neutrophil 18.29(H) 1.70 - 6.50 k/cmm [facility] Abs Lymphocyte 1.53 0.80 - 4.00 k/cmm [facility] Abs Monocyte 1.83(H) 0.20 - 1.00 k/cmm [facility] Abs Eosinophil 0.00 0.00 - 0.60 k/cmm [facility] Abs Basophil 0.04 0.00 - 0.20 k/cmm [facility] Polychromasia Slight [facility] Dohle Body Present [facility] Toxic Vac Present [facility] Blood 11/10/2023 2:31 PM CDT 11/10/2023 2:57 PM CDT Jessica Grullon MD LABORATORY Performing Organization Address [facility]/ZIP Co de Phone Number [facility] [address] [address] * (ABNORMAL) BLOOD GASES (11/10/2023 2:31 PM CDT) PH Mayo 7.47(H) 7.32 - 7.42 [facility] PCO2 Mayo 38(L) 41 - 51 mmHG [facility] PO2 Mayo 75(H) 25 - 40 mmHG [facility] Bicarb Mayo 27 24 - 28 mEq/L [facility] O2 Sat Mayo 96 % [facility] Base Exc [place] 3.7(H) -10.0 - 2.0 mmol/L [facility] Blood Venous 11/10/2023 2:31 PM CDT 11/10/2023 2:45 PM CDT Jessica Grullon MD LABORATORY Performing Organization Address City/[facility]/ZIP Co de Phone Number [facility] [address] [address] * ANTIBODY SCREEN (11/10/2023 2:29 PM CDT) Lilly Screen Negative [facility] Blood 11/10/2023 2:29 PM CDT 11/10/2023 2:49 PM CDT Jessica Grullon MD LAB TRANSFUSION SER VICES Performing Organization Address City/[facility]/ZIP Co de Phone Number [facility] [address] [address] * BLOOD TYPING-ABO/RH (11/10/2023 2:29 PM CDT) ABORHG A POS [facility] Blood 11/10/2023 2:29 PM CDT 11/10/2023 2:49 PM CDT Jessica Grullon MD LAB TRANSFUSION SER VICES Performing Organization Address City/[facility]/ZIP Co de Phone Number [facility] [address] [address] * PRECAUTIONARY TUBE (11/10/2023 2:29 PM CDT) Prec Tube Precautionary Blood Bank Specimen Received. [facility] Blood 11/10/2023 2:29 PM CDT 11/10/2023 2:49 PM CDT Jessica Grullon MD LAB TRANSFUSION SER VICES Performing Organization Address [facility] Co de Phone Number [facility] [address] [address] * ED US CRITICAL CARE (11/10/2023 2:28 PM CDT) Anatomical Region Laterality Modality Ultrasound Narrative 11/10/2023 3:16 PM CDT ED Critical Care Resuscitative Ultrasound ED Cardiac Ultrasound Body Areas Imaged: Heart, Chest Wall/Lungs, and Inferior Vena Cava Indications:Shock/Sepsis Window: Subxiphoid, Parasternal Short [place], Parasternal Long [place], Apical 4-Chamber, and Bilateral Lungs Findings: [...] 11/22/2023 8:35 PM CDT 20 mg heparin 40462 UNITS/mL injection 7,500 UNITS 7,500 UNITS, Subcutaneous, [...] (Given - Provider: Sheila Dias, RN) heparin 48686 UNITS/mL injection 7,500 UNITS 7,500 UNITS, Subcutaneous, [...]
--- OUTSIDE RECORDS SUMMARY | 2024-02-21 09:10 | XMS_ITS | Encounter Summary ---
Author Organization [facility] Address [address] [place] [id number] Phone Care Team Providers Care Head Athletic Trainer/Strength Coach Name Role Phone Unavailable Primary Care Provider [...]
--- OUTSIDE RECORDS SUMMARY | 2024-02-21 09:10 | XMS_ITS | Encounter Summary ---
Author Organization [facility] Address [address] [place] [id number] Phone Care Team Providers Care [employer] Extension Specialist Name Role Phone Unavailable Primary Care [...]
--- OUTSIDE RECORDS SUMMARY | 2024-02-21 09:10 | XMS_ITS | Encounter Summary ---
Author Organization [facility] Address [address] [place] [address] Phone Care Team Providers Care Inspector Welded Parts Name Role Phone Unavailable Primary Care Provider [...]
--- OUTSIDE RECORDS SUMMARY | 2024-02-21 09:10 | XMS_ITS | Encounter Summary ---
Author Organization [facility] Address [address] [place] [phone] Phone Care Team Providers Care Hot Blaster Name Role Phone Unavailable Primary Care Provider [...]
--- OUTSIDE RECORDS SUMMARY | 2024-02-21 09:10 | XMS_ITS | Encounter Summary ---
Author Organization [facility] Address [address] [place] [address] Phone Care Team Providers Care Stock Room Manager Name Role Phone Unavailable Primary Care [...]
--- OUTSIDE RECORDS SUMMARY | 2024-02-21 09:10 | XMS_ITS | Encounter Summary ---
Author Organization [facility] Address [address] [place] [address] Phone Care Team Providers Care Sawmilling Operator Name Role Phone Unavailable Primary Care [...]
--- OUTSIDE RECORDS SUMMARY | 2024-02-21 09:10 | XMS_ITS | Encounter Summary ---
Author Organization [facility] Address [address] [place] [address] Phone Care Team Providers Care Category Specialist Name Role Phone Unavailable Primary Care [...]
--- OUTSIDE RECORDS SUMMARY | 2024-02-21 09:10 | XMS_ITS | Encounter Summary ---
Author Organization [facility] Address [address] [place] [address] Phone Care Team Providers Care Automation Qa Lead Name Role Phone Unavailable Primary Care [...]
--- OUTSIDE RECORDS SUMMARY | 2024-02-21 09:10 | XMS_ITS | Encounter Summary ---
Author Organization [facility] Address [address] [place] [phone] Phone Care Team Providers Care Administrative Nursing Supervisor Name Role Phone Unavailable Primary Care [...]
--- OUTSIDE RECORDS SUMMARY | 2024-02-21 09:10 | XMS_ITS | Encounter Summary ---
Author Organization [facility] Address [address] [place] [address] Phone Care Team Providers Care Cell Liner Name Role Phone Unavailable Primary Care Provider Unavailabl e Encounter Details Date Type Department Care Team (Late st Contact Info) Description 11/10/2023 Orders Only [facility] [place] [employer] Radiology Department DANISHA 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
--- OUTSIDE RECORDS SUMMARY | 2024-02-21 09:10 | XMS_ITS | Encounter Summary ---
Author Organization [facility] Address [address] [place] [address] Phone Care Team Providers Care Boat Operator Name Role Phone Unavailable Primary Care [...]
--- OUTSIDE RECORDS SUMMARY | 2024-02-21 09:10 | XMS_ITS | Encounter Summary ---
Author Organization [facility] Address [address] [place] [address] Phone Care Team Providers Care Electro Mechanic Name Role Phone Unavailable Primary Care [...]
--- OUTSIDE RECORDS SUMMARY | 2024-02-21 09:10 | XMS_ITS | Encounter Summary ---
Author Organization [facility] Address [address] [place] [address] Phone Care Team Providers Care Quality Process Lead Name Role Phone Unavailable Primary Care [...]
--- OUTSIDE RECORDS SUMMARY | 2024-02-21 09:10 | XMS_ITS | Encounter Summary ---
Author Organization [facility] Address [address] [place] [address] Phone Care Team Providers Care Informatica Mdm Architect Name Role Phone Unavailable Primary Care Provider [...]
== END 2024-02-21 08:56 | disposition home or self-care (01) ==
LOC: WOUND 08:55
PROVIDERS: PCP Family Medicine; Visit Provider Nurse Practitioner Family
DX: E11.622 Type 2 diabetes mellitus with other skin ulcer (principal); L98.412 Non-pressure chronic ulcer of buttock with fat layer exposed; Z79.4 Long term (current) use of insulin
CPT/HCPCS: 97597

== ENCOUNTER 2024-02-28 08:59 | Outpatient (CLI) | payer MEDICARE, MEDICAID, SELFPAY ==
--- OUTSIDE RECORDS SUMMARY | 2024-02-28 09:03 | XMS_ITS | Clinical Summary ---
Author Organization [facility] Address [address] [place] [address] Phone Care Team Providers Care Director Strategy Name Role Phone Unavailable Primary Care Provider Unavailabl e Source Comments [employer] is fully rolled out on [employer]. 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[facility]) Discharge Disposition: Discharged to home or self care 01/20/2024 9:54 AM CDT - 01/20/2024 11:59 PM CDT Hospital Encounter [facility] [address] [place] [address] David Cortes MD Routine, Hbo - Discharge Disposition: Discharged to home or self care 01/20/2024 Travel 01/19/2024 10:30 AM CDT - 01/19/2024 11:59 PM CDT Hospital Encounter [facility] [address] [place] [address] Nikolai Martinez MD Routine, Hbo - Discharge Disposition: Discharged to home or self care 01/19/2024 Travel 01/18/2024 10:06 AM CDT - 01/18/2024 11:59 PM CDT Hospital Encounter [facility] [address] [place] [address] David Cortes MD Routine, Hbo - Discharge Disposition: Discharged to home or self care 01/18/2024 Travel 01/17/2024 9:42 AM CDT - 01/17/2024 11:59 PM CDT Hospital Encounter [facility] [address] [place] [address] Douglas Morris II, MD Routine, Hbo - Discharge Disposition: Discharged to home or self care 01/17/2024 Travel 01/12/2024 9:53 AM CDT - 01/12/2024 11:59 PM CDT Hospital Encounter [facility] [address] [place] [phone] David Cortes MD Routine, Hbo - Discharge Disposition: Discharged to home or self care 01/12/2024 Travel 01/11/2024 10:01 AM CDT - 01/11/2024 11:59 PM CDT Hospital Encounter [facility] [address] [place] [address] Nikolai Martinez MD Routine, Hbo - Discharge Disposition: Discharged to home or self care 01/11/2024 Travel 01/07/2024 10:06 AM CDT - 01/07/2024 11:59 PM CDT Hospital Encounter [facility] [address] [place] [address] Maggy Horan MD Routine, Hbo - Discharge Disposition: Discharged to home or self care 01/07/2024 Travel 01/06/2024 9:50 AM CDT - 01/06/2024 11:59 PM CDT Hospital Encounter [facility] [address] [place] [address] David Cortes MD Routine, Hbo - Discharge Disposition: Discharged to home or self care 01/06/2024 9:40 AM CDT - 01/06/2024 11:59 PM CDT Hospital Encounter [facility] [address] [place] [phone] David Cortes MD Discharge Disposition: Discharged to home or self care 01/06/2024 Travel 01/05/2024 9:32 AM CDT - 01/05/2024 11:59 PM CDT Hospital Encounter [facility] [address] [place] [address] David Cortes MD Routine, Hbo - Discharge Disposition: Discharged to home or self care 01/05/2024 Orders Only [facility] [address] [place] [address] Talita Patel MD 01/05/2024 Travel 01/04/2024 10:16 AM CDT - 01/04/2024 11:59 PM CDT Hospital Encounter [facility] [address] [place] [address] Douglas Morris II, MD Routine, Hbo - Discharge Disposition: Discharged to home or self care 01/04/2024 Travel 01/03/2024 9:33 AM CDT - 01/03/2024 11:59 PM CDT Hospital Encounter [facility] [address] [place] [address] Narcisa Sanford MD Routine, Hbo - Discharge Disposition: Discharged to home or self care 01/03/2024 Travel 12/31/2023 1:00 PM CDT [facility] [address] [address] Suzy Patino DPM S/P foot surgery, right (Primary Dx) Discharge Disposition: Discharged to home or self care 12/31/2023 9:51 AM CDT - 12/31/2023 11:59 PM CDT Hospital Encounter [facility] [address] [address] Douglas Morris II, MD Routine, Hbo - Discharge Disposition: Discharged to home or self care 12/31/2023 Travel 12/30/2023 9:49 AM CDT - 12/30/2023 11:59 PM CDT Hospital Encounter [facility] [address] [address] David Cortes MD Routine, Hbo - Discharge Disposition: Discharged to home or self care 12/30/2023 Travel 12/29/2023 9:38 AM CDT - 12/29/2023 11:59 PM CDT Hospital Encounter [facility] [address] [address] Nikolai Martinez MD Routine, Hbo - Discharge Disposition: Discharged to home or self care 12/29/2023 Travel 12/28/2023 Telephone [facility] [address] [address] Dayanna Rodriguez RN Care Coordination (Called to discuss outpatient HBOT schedule) 12/27/2023 9:00 AM CDT Nurse Only [facility] [address] [place] [address] Suzy Patino, DPM Discharge Disposition: Discharged to home or self care 12/27/2023 Travel 12/24/2023 10:00 AM CDT Office [facility] [address] [place] [address] 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, MANAGER IMAGING, ENFORCEMENT OFFICER 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); Soft tissue infection Discharge Disposition: Discharged to home or self care 12/24/2023 Travel 12/23/2023 9:33 AM CDT - 12/23/2023 11:59 PM CDT Hospital Encounter [facility] [address] [address] Nikolai Martinez MD Routine, Hbo - Discharge Disposition: Discharged to home or self care 12/23/2023 Travel 12/22/2023 9:43 AM CDT - 12/22/2023 11:59 PM CDT Hospital Encounter [facility] [address] [place] [address] Narcisa Sanford MD Routine, Hbo - Discharge Disposition: Discharged to home or self care 12/22/2023 Travel 12/20/2023 9:34 AM CDT - 12/20/2023 11:59 PM CDT Hospital Encounter [facility] [address] [place] [address] Shawn Vines MD Routine, Hbo - Discharge Disposition: Discharged to home or self care 12/20/2023 Travel 12/17/2023 1:45 PM CDT Office [facility] [address] [address] Suzy Patino DPM S/P foot surgery, right (Primary Dx) Discharge Disposition: Discharged to home or self care 12/17/2023 Travel 12/14/2023 Telephone [facility] Medicine [address] [place] [address] Aretha Damon MD Follow-up 12/10/2023 10:39 AM CDT Anesthesia Event OR [facility]4 [address] [place] [address] Clint White MD Bojanov, Krasimir G, MD 12/10/2023 9:49 AM CDT - 12/10/2023 11:34 AM CDT Surgery OR [facility] [address] [place] [address] Suzy Patino DPM REVISION, AMPUTATION SITE, POSSIBLE PARTIAL FOOT AMPUTATION, IRRIGATION AND DEBRIDMENT, POSSIBLE SERIAL PROCEDURES, L LOWER EXTREMITY 12/08/2023 7:35 AM CDT - 12/08/2023 9:13 AM CDT Surgery OR [facility] [address] [place] [address] Che Campos DPM PARTIAL AMPUTATION FOOT 12/08/2023 7:28 AM CDT Anesthesia Event OR [facility] [address] [place] [address] Dontae Higgins MD Bojanov, Krasimir G, MD 12/07/2023 3:48 PM CDT - 12/14/2023 12:38 PM CDT Hospital Encounter [facility] Orthopaedic [address] [place] [address] Eusebio Vivar MD Rajagopal, Shrikar S, MD Oeding, Suzy Torres, Igor Cosby MD Lawson, Clint Gomez MD Other acute osteomyelitis of left foot ([facility]) Discharge Disposition: Discharged/transd to home (care by home health service organization) 12/07/2023 3:07 PM CDT - 12/07/2023 11:59 PM CDT Hospital Encounter [facility] [address] [place] [address] Che Campos DPM Discharge Disposition: Discharged to home or self care 12/07/2023 2:30 PM CDT Office Visit [facility] [address] [place] [address] Che Campos DPM 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[facility]) (Primary Dx); Cellulitis of left lower extremity Discharge Disposition: Discharged to home or self care 12/07/2023 Travel 12/02/2023 Nurse Triage [facility] [address] [place] [address] Angi Aranda RN Post-op Complications from Last 3 Months Immunizations Name Administration [...] CDT Other acute osteomyelitis of left foot ([facility]) PC CULTURE FUNGI ISOLATION W-WO PRESUMPTIVE ID [...] CDT Other acute osteomyelitis of left foot ([facility]) POC GLUCOSE Routine 12/08/2023 7:22 AM CDT [...] Routine 12/07/2023 3:23 PM CDT 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 POC Glucose 323(H) 70 - 100 mg/dL [facility] Blood 01/19/2024 12:2 2 PM CDT Nikolai Martinez MD LABORATORY [facility] [address] [place] [address], * HBO ANGIOGRAPHY EXTREMITY UNILATERAL (01/06/2024 9:40 [...] period is included. Vancomycin 17.0 mcg/mL [facility] Comment:Expected Range (Trou gh): 10-20 mcg/ml Blood 12/13/2023 5:24 PM CDT 12/13/2023 5:46 PM CDT Narrative [facility] - 12/13/2023 6:34 PM CDT Please ensure trough level drawn prior to next vancomycin dose. Thank you Peak or trough:->Trough Eusebio Perez PharmD LABORATORY [facility] [address] [address] * (ABNORMAL) CBC WITH PLTS/AUTO DIFF (12/11/2023 5:50 AM CDT) Only the most recent of3 resultswithin the time period is included. WBC 8.72 4.00 - 10.00 k/cmm [facility] RBC 3.82(L) 4.60 - 6.00 m/cmm [facility] Hgb 10.6(L) 13.1 - 17.5 g/dL [facility] Hematocrit 32.4(L) 40.0 - 51.0 % [facility] MCV 84.8 80.0 - 100.0 fL [facility] MCH 27.7 25.0 - 32.0 pg [facility] MCHC 32.7 31.0 - 36.0 g/dL [facility] RDW 13.5 11.5 - 14.5 % [facility] Plt 400 150 - 400 k/cmm [facility] MPV 9.3 6.5 - 12.5 fL [facility] Automated Abs Neutrophil 4.22 1.70 - 6.50 k/cmm [facility] Comment:Preliminary ANC, Fin al Result to Follow Abs Immature Granulocyte 0.09 0.00 - 0.09 k/cmm [facility] Comment:The Immature Granulo cyte Absolute count contains metamyelocytes and myelocytes. Abs Neutrophil 4.22 1.70 - 6.50 k/cmm [facility] Abs Lymphocyte 2.59 0.80 - 4.00 k/cmm [facility] Abs Monocyte 1.00 0.20 - 1.00 k/cmm [facility] Abs Eosinophil 0.79(H) 0.00 - 0.60 k/cmm [facility] Abs Basophil 0.03 0.00 - 0.20 k/cmm [facility] Blood 12/11/2023 5:50 AM CDT 12/11/2023 6:26 AM CDT Igor Glover MD LABORATORY [facility] [address] [place] [address] * (ABNORMAL) PANEL BASIC METABOLIC (BMP) (12/11/2023 5:50 AM CDT) Only the most recent of4 resultswithin the time period is included. CO2 25 22 - 30 mmol/L [facility] Glucose 178(H) 70 - 100 mg/dL [facility] BUN 9 6 - 20 mg/dL [facility] Creatinine 0.92 0.70 - 1.25 mg/dL [facility] Calcium 9.0 8.6 - 10.0 mg/dL [facility] Sodium 136 135 - 148 mmol/L [facility] Potassium 4.1 3.5 - 5.3 mmol/L [facility] Chloride 100 92 - 108 mmol/L [facility] eGFR (2020 CKD-EPI) 105 >=60 ml/min/1.7 3m2 [facility] Comment: The estimated glomerular filtration rate (eGFR) was calculated using the CKD-EPI 2020 creatinine equation, which does not include race as a factor. This equation is validated in individuals 18 years of age and older, and eGFR is normalized to a body surface area of 1.73m^2. AnGap 11 8 - 16 mmol/L [facility] Blood 12/11/2023 5:50 AM CDT 12/11/2023 6:25 AM CDT Igor Glover MD LABORATORY [facility] [address] [address] * XR CHEST 2 VIEWS PA + [...] ?12/10/2023 12:07 CDT ? Accession Number: ? [id number] ? Surgical Pathology Final Report Specimen Type: [...] M.D. Attending Pathologist. DDB/DDB 12.10.2023 13:39 [facility] AP Specimen FOOT STRUCTURE / Unknown 12/10/2023 11:07 AM CDT Comment:OR: Routine gross an d microscopic examination Tissue: 1st metatarsel left foot, cut margin Site: foot Additional clinical information: Suzy Patino DPM LAB PATHOLOGY [facility] [address] [address] * HBO TCO2 MEASUREMENT COMPLETE (12/09/2023 10:25 [...] Reg 2002; 10:198-207. Bridget QUIÑONEZ et al. [facility] 2009, Vol. 36(1). ? [place] 07/27/13 Suzy Shafer PA-C HYPERBARIC CHAMBE R * (ABNORMAL) SED RATE (ESR) (12/08/2023 4:47 PM CDT) Only the most recent of2 resultswithin the time period is included. Sed Rate 120(H) 2 - 10 mm/hr [facility] Blood 12/08/2023 4:47 PM CDT 12/08/2023 5:07 PM CDT Suzy Shafer PA-C LABORATORY Performing Organization Address City/[facility]/ZIP Co de Phone Number [facility] [address] [address] * (ABNORMAL) GLYCOSYLATED HGB - A1C (12/08/2023 4:47 PM CDT) Hemoglobin A1C 8.5(H) 4.0 - 5.6 % [facility] Comment: Increased risk [...] Average Glucose 197(H) 68 - 114 [facility] Comment: The estimated Average Glucose (eAG) was calculated using an equation derived from a study of 507 adults with type 1, type 2, or no diabetes. Minority populations were underrepresented and children were not included. The eAG is not equivalent to a fasting glucose concentration. Blood 12/08/2023 4:47 PM CDT 12/08/2023 5:07 PM CDT Narrative [facility] - 12/08/2023 6:01 PM CDT If not done in the last 30 days. Suzy Shafer PA-C LABORATORY Performing Organization Address City/[facility]/ZIP Co de Phone Number [facility] [address] [address] * (ABNORMAL) C-REACTIVE PROTEIN (12/08/2023 4:47 PM CDT) Only the most recent of2 resultswithin the time period is included. Pathologist [facility] C-Reactive Protein 77(H) <=4 mg/L [facility] Blood 12/08/2023 4:47 PM CDT 12/08/2023 5:07 PM CDT Suzy Shafer PA-C LABORATORY [facility] [address] [address] * (ABNORMAL) CBC WITH PLATELET (12/08/2023 4:47 PM CDT) [facility] WBC 10.39(H) 4.00 - 10.00 k/cmm [facility] RBC 3.59(L) 4.60 - 6.00 m/cmm [facility] Hgb 9.8(L) 13.1 - 17.5 g/dL [facility] Hematocrit 30.8(L) 40.0 - 51.0 % [facility] MCV 85.8 80.0 - 100.0 fL [facility] MCH 27.3 25.0 - 32.0 pg [facility] MCHC 31.8 31.0 - 36.0 g/dL [facility] RDW 13.5 11.5 - 14.5 % [facility] Plt 314 150 - 400 k/cmm [facility] MPV 9.3 6.5 - 12.5 fL [facility] Blood 12/08/2023 4:47 PM CDT 12/08/2023 5:07 PM CDT Suzy Shafer PA-C LABORATORY Performing Organization Address City/[facility]/ZIP Co de Phone Number [facility] [address] [address] * (ABNORMAL) TISSUE CULTURE:INCLUDES GRAM STAIN (12/08/2023 7:51 AM CDT) Only the most recent of2 resultswithin the time period is included. Final Report Positive Culture Few METHICILLIN RESISTANT Staphylococcus aureus (MRSA) isolated. 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 For susceptibility, see previous report on culture from wound culture collected 12/07/23. (POS) [facility] [...] to and acknowledged by: Dr. Igor Glover [facility] 12/09/2023 12:48:27. Elizabeth Schwartz MLS. (POS) [facility] Bone STRUCTURE OF LEFT FOOT / Unknown 12/08/2023 7:51 AM CDT 12/08/2023 9:00 AM CDT Comment:2. Bone first metata rsal left foot Che Brian [employer] LAB MICROBIOLOGY Performing Organization Address [facility] Co de Phone Number [facility] [address] [address] * FUNGUS CULTURE:INCLUDES SUHAS (12/08/2023 7:51 AM CDT) Only the most recent of2 resultswithin the time period is included. Final Report No fungus isolated. [facility] SUHAS Prep No fungal elements seen. [facility] Bone STRUCTURE OF LEFT FOOT / Unknown 12/08/2023 7:51 AM CDT 12/08/2023 9:00 AM CDT Comment:2. Bone first metata rsal left foot [employer] LAB MICROBIOLOGY Performing Organization Address City/[facility]/ZIP Co de Phone Number [facility] [address] [address] * ANAEROBE CULTURE (12/08/2023 7:51 AM CDT) Only the most recent of2 resultswithin the time period is included. Pathologist [facility] Final Report No anaerobes isolated. [facility] Bone STRUCTURE OF LEFT FOOT / Unknown 12/08/2023 7:51 AM CDT 12/08/2023 9:00 AM CDT Comment:2. Bone first metata rsal left foot Che Campos [facility] MICROBIOLOGY Performing Organization Address [facility] Co de Phone Number [facility] [address] [address] * EXTRA TUBE - DARK GREEN (12/07/2023 4:05 PM CDT) Pathologist [facility] DARK GREEN TUBE Stored [facility] Comment:Dark Green tubes (Li thium Heparin) are stored in the lab for 1 day from the collection date. Blood 12/07/2023 4:05 PM CDT 12/07/2023 4:24 PM CDT Eusebio Vivar MD LABORATORY Performing Organization Address [facility] Co de Phone Number [facility] [address] [address] * EXTRA TUBE - BLUE (12/07/2023 4:05 PM CDT) Pathologist [facility] BLUE TUBE [facility] Comment:Blue top(Sodium citr ate) tubes are kept for 3 days from the collection date. Blood 12/07/2023 4:05 PM CDT 12/07/2023 4:24 PM CDT Eusebio Vivar MD LABORATORY Performing Organization Address [facility] de Phone Number [facility] [address] [address] * (ABNORMAL) ED CHEMISTRY LABS(NA,K,CL,CO2,GLU,CREAT,CA-IONIZED,ANION GAP) (12/07/2023 4:05 PM CDT) Pathologist [facility] Sodium 139 135 - 148 mmol/L [facility] Chloride 97 92 - 108 mmol/L [facility] AnGap 15 8 - 16 mmol/L [facility] Glucose 284(H) 70 - 100 mg/dL [facility] ICA, Actual 4.89 4.40 - 5.20 mg/dL [facility] ICA, pH Corrected 4.74 4.40 - 5.20 mg/dL [facility] Creatinine 1.26(H) 0.70 - 1.25 mg/dL [facility] BICARB 26 22 - 26 mEq/L [facility] eGFR (2020 CKD-EPI) 72 >=60 ml/min/1.7 3m2 [facility] Comment: The estimated glomerular filtration rate (eGFR) was calculated using the CKD-EPI 2020 creatinine equation, which does not include race as a factor. This equation is validated in individuals 18 years of age and older, and eGFR is normalized to a body surface area of 1.73m^2. Potassium 4.5 3.5 - 5.3 mmol/L [facility] Blood 12/07/2023 4:05 PM CDT 12/07/2023 4:27 PM CDT Eusebio Vivar MD LABORATORY [facility] [address] [address] * LACTATE (LACTIC ACID) (12/07/2023 4:05 PM CDT) Lactate 2.1 0.7 - 2.1 mmol/L [facility] Blood 12/07/2023 4:05 PM CDT 12/07/2023 4:27 PM CDT Narrative [facility] - 12/07/2023 4:27 PM CDT Send specimen on ice! Eusebio Vivar MD LABORATORY [facility] [address] [address] * BLOOD AEROBIC/ANAEROBIC CULTURE (12/07/2023 4:05 PM CDT) Final Report No growth after 5 days. [facility] Blood (Peripheral) 12/07/2023 4:05 PM CDT 12/07/2023 7:55 PM CDT Eusebio Vivar MD LAB MICROBIOLOGY [facility] [address] [address] * (ABNORMAL) WOUND CULTURE:GRAM STAIN OPTIONAL (12/07/2023 [...] Resistant Methicillin-Resistant Staphylococcus aureus (MRSA) Linezolid MICROSCAN JRODY 2: Sensitive Methicillin-Resistant Staphylococcus aureus (MRSA) Oxacillin MICROSCAN JORDY >2: Resistant Methicillin-Resistant Staphylococcus aureus (MRSA) Tetracycline MICROSCAN JORDY <=4: Sensitive Methicillin-Resistant Staphylococcus aureus (MRSA) Trimethoprim/Sulfametho xazole MICROSCAN JORDY <=0.5/9.5: Sensitive Methicillin-Resistant Staphylococcus aureus (MRSA) Vancomycin MICROSCAN JORDY 1: Sensitive Che Campos DPM LAB MICROBIOLOGY [facility] [address] [address] * HIV COMBO (11/15/2023 7:39 AM CDT) HIV Antigen-Antibody Nonreactive Nonreactive [facility] Comment:Performance characte ristics have not been established with this test on patients less than 2 years of age. Blood 11/15/2023 7:39 AM CDT 11/15/2023 7:58 AM CDT Zac Jackson MD LABORATORY [facility] [address] [place] [address] from Last 3 Months or Most Recently Relevant to Health Maintenance Additional Health Concerns Infection Onset Date Last Indicated MRSA 11/17/2023 12/08/2023 Advance Directives For more information, please contact: [phone] * Full Code (Latest Code Status on [...]
--- OUTSIDE RECORDS SUMMARY | 2024-02-28 09:03 | XMS_ITS | Referral Summary ---
Author Organization [employer] Address [address] [place] [address] Phone Care Team Providers Care Vp Lab Name Role Phone Unavailable Primary Care Provider Unavailabl e Source Comments [employer] [facility] Last update 10/12/08.[employer] Encounters Date Type Department Care Team Description 01/20/2024 Travel 01/20/2024 9:54 AM CDT - 01/20/2024 11:59 PM CDT Hospital Encounter [facility] [address] [place] [phone] David Cortes MD Routine, Hbo - Discharge Disposition: Discharged to home or self care 01/20/2024 1:30 PM CDT [facility] [address] [address] Afshan Patino DPM S/P foot surgery, right (Primary Dx); 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[facility]) Discharge Disposition: Discharged to home or self care 01/19/2024 Travel 01/19/2024 10:30 AM CDT - 01/19/2024 11:59 PM CDT Hospital Encounter [facility] [address] [place] [address] Nikolai Martinez MD Routine, Hbo - Discharge Disposition: Discharged to home or self care 01/18/2024 Travel 01/18/2024 10:06 AM CDT - 01/18/2024 11:59 PM CDT Hospital Encounter [facility] [address] [place] [address] David Cortes MD Routine, Hbo - Discharge Disposition: Discharged to home or self care 01/17/2024 Travel 01/17/2024 9:42 AM CDT - 01/17/2024 11:59 PM CDT Hospital Encounter [facility] [address] [place] [address] Douglas Morris II, MD Routine, Hbo - Discharge Disposition: Discharged to home or self care 01/12/2024 Travel 01/12/2024 9:53 AM CDT - 01/12/2024 11:59 PM CDT Hospital Encounter [facility] [address] [place] [phone] David Cortes MD Routine, Hbo - Discharge Disposition: Discharged to home or self care 01/11/2024 Travel 01/11/2024 10:01 AM CDT - 01/11/2024 11:59 PM CDT Hospital Encounter [facility] [address] [place] [address] Nikolai Martinez MD Routine, Hbo - Discharge Disposition: Discharged to home or self care 01/07/2024 Travel 01/07/2024 10:06 AM CDT - 01/07/2024 11:59 PM CDT Hospital Encounter [facility] [address] [place] [address] Maggy Horan MD Routine, Hbo - Discharge Disposition: Discharged to home or self care 01/06/2024 Travel 01/06/2024 9:40 AM CDT - 01/06/2024 11:59 PM CDT Hospital Encounter [facility] [address] [place] [address] David Cortes MD Discharge Disposition: Discharged to home or self care 01/06/2024 9:50 AM CDT - 01/06/2024 11:59 PM CDT Hospital Encounter [facility] [address] [place] [address] David Cortes MD Routine, Hbo - Discharge Disposition: Discharged to home or self care 01/05/2024 Orders Only [facility] [address] [place] [address] Talita Patel MD 01/05/2024 Travel 01/05/2024 9:32 AM CDT - 01/05/2024 11:59 PM CDT Hospital Encounter [facility] [address] [place] [address] David Cortes MD Routine, Hbo - Discharge Disposition: Discharged to home or self care 01/04/2024 Travel 01/04/2024 10:16 AM CDT - 01/04/2024 11:59 PM CDT Hospital Encounter [facility] [address] [address] Douglas Morris II, MD Routine, Hbo - Discharge Disposition: Discharged to home or self care 01/03/2024 Travel 01/03/2024 9:33 AM CDT - 01/03/2024 11:59 PM CDT Hospital Encounter [facility] [address] [place] [address] Narcisa Sanford MD Routine, Hbo - Discharge Disposition: Discharged to home or self care 12/31/2023 Travel 12/31/2023 9:51 AM CDT - 12/31/2023 11:59 PM CDT Hospital Encounter [facility] [address] [place] [address] Douglas Morris II, MD Routine, Hbo - Discharge Disposition: Discharged to home or self care 12/31/2023 1:00 PM CDT [facility] [address] [address] Afshan Patino DPM S/P foot surgery, right (Primary Dx) Discharge Disposition: Discharged to home or self care 12/30/2023 Travel 12/30/2023 9:49 AM CDT - 12/30/2023 11:59 PM CDT Hospital Encounter [facility] [address] [place] [address] David Cortes MD Routine, Hbo - Discharge Disposition: Discharged to home or self care 12/29/2023 Travel 12/29/2023 9:38 AM CDT - 12/29/2023 11:59 PM CDT Hospital Encounter [facility] [address] [place] [address] Nikolai Martinez MD Routine, Hbo - Discharge Disposition: Discharged to home or self care 12/28/2023 Telephone [facility] [address] [place] [address] Dayanna Rodriguez RN Care Coordination (Called to discuss outpatient HBOT schedule) 12/27/2023 Travel 12/27/2023 9:00 AM CDT Nurse Only [facility] [address] [place] [address] Afshan Patino DPM Discharge Disposition: Discharged to home or self care 12/24/2023 Travel 12/24/2023 10:00 AM CDT Office [facility] [address] [place] [address] 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, PASTER HAT LINING, WATERPROOFING SUPERVISOR 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); Soft tissue infection Discharge Disposition: Discharged to home or self care 12/23/2023 Travel 12/23/2023 9:33 AM CDT - 12/23/2023 11:59 PM CDT Hospital Encounter [facility] [address] [place] [address] Nikolai Martinez MD Routine, Hbo - Discharge Disposition: Discharged to home or self care 12/22/2023 Travel 12/22/2023 9:43 AM CDT - 12/22/2023 11:59 PM CDT Hospital Encounter [facility] [address] [place] [address] Narcisa Sanford MD Routine, Hbo - Discharge Disposition: Discharged to home or self care 12/20/2023 Travel 12/20/2023 9:34 AM CDT - 12/20/2023 11:59 PM CDT Hospital Encounter [facility] [address] [place] [address] Shawn Vines MD Routine, Hbo - Discharge Disposition: Discharged to home or self care 12/17/2023 Travel 12/17/2023 1:45 PM CDT Office [facility] [address] [address] Afshan Patino DPM S/P foot surgery, right (Primary Dx) Discharge Disposition: Discharged to home or self care 12/14/2023 Telephone [facility] Medicine [address] [place] [address] Aretha Damon MD Follow-up 12/07/2023 3:48 PM CDT - 12/14/2023 12:38 PM CDT Hospital Encounter [facility]opa[facility] [address] [place] [address] Eusebio Vivar MD Rajagopal, Shrikar S, MD Oeding, Afshan Torres, Igor Cosby MD Lawson, Michael J, MD Other acute osteomyelitis of left foot ([facility]) Discharge Disposition: Discharged/transd to home (care by home health service organization) 12/10/2023 10:39 AM CDT Anesthesia Event OR P4 [address] [place] [address] Clint White MD Bojanov, Krasimir G, MD 12/10/2023 9:49 AM CDT - 12/10/2023 11:34 AM CDT Surgery OR P4 [address] [place] [address] Afshan Patino DPM REVISION, AMPUTATION SITE, POSSIBLE PARTIAL FOOT AMPUTATION, IRRIGATION AND DEBRIDMENT, POSSIBLE SERIAL PROCEDURES, L LOWER EXTREMITY 12/08/2023 7:28 AM CDT Anesthesia Event OR P4 [address] [place] [address] Dontae Higgins MD Bojanov, Krasimir G, MD 12/08/2023 7:35 AM CDT - 12/08/2023 9:13 AM CDT Surgery OR P4 [address] [place] [address] Che Campos DPM PARTIAL AMPUTATION FOOT 12/07/2023 3:07 PM CDT - 12/07/2023 11:59 PM CDT Hospital Encounter [facility] [address] [place] [address] Che Campos DPM Discharge Disposition: Discharged to home or self care 12/07/2023 Travel 12/07/2023 2:30 PM CDT Office [facility] [address] [place] [address] Che Campos DPM 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[facility]) (Primary Dx); Cellulitis of left lower extremity Discharge Disposition: Discharged to home or self care 12/02/2023 Nurse Triage [facility] [address] [place] [address] Angi Aranda RN Post-op Complications from Last 3 Months Allergies No known [...] 12/10/2023 Other acute osteomyelitis of left foot ([facility]) 12/07/2023 At risk for sexually transmi tted infection due to unprotected sex 11/12/2023 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[facility]) 11/10/2023 Resolved Problems Problem Noted Date [...] CDT Other acute osteomyelitis of left foot ([facility]) PC CULTURE FUNGI ISOLATION W-WO PRESUMPTIVE ID SKIN OTH Routine 12/08/2023 7:51 AM CDT PC CULTURE SPECIMEN, ANAEROBIC Routine 12/08/2023 7:51 AM CDT PC CULTURE,BACTERIAL,DEF INITIVE,AEROBIC ANY SOURCE Routine 12/08/2023 7:51 AM CDT PC CULTURE,BACTERIAL,DEF INITIVE,AEROBIC ANY SOURCE Routine 12/08/2023 7:51 AM CDT Other acute osteomyelitis of left foot ([facility]) PC CULTURE FUNGI ISOLATION W-WO PRESUMPTIVE ID SKIN OTH Routine 12/08/2023 7:51 AM CDT Other acute osteomyelitis of left foot ([facility]) PC CULTURE SPECIMEN, ANAEROBIC Routine 12/08/2023 7:51 AM CDT Other acute osteomyelitis of left foot ([facility]) POC GLUCOSE Routine 12/08/2023 7:22 AM CDT [...] Routine 12/07/2023 3:23 PM CDT 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[facility]) PC SMEAR, ROSAURA SOURCE, WITH INTERPRETATION (GRAM STAIN) Routine 12/07/2023 3:00 PM CDT 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[facility]) PC HIV-1 AG W/HIV-1 & HIV-2 AB Timed 11/15/2023 7:39 AM CDT from Last 3 Months or Most Recently Relevant to Health Maintenance Results * (ABNORMAL) POC GLUCOSE (01/19/2024 12:22 PM CDT) Only the most recent of48 resultswithin the time period is included. POC Glucose 323(H) 70 - 100 mg/dL [facility] Blood 01/19/2024 12:2 2 PM CDT Nikolai Martinez MD LABORATORY [facility] [address] [place] [address], * HBO ANGIOGRAPHY EXTREMITY UNILATERAL (01/06/2024 9:40 [...] time period is included. Vancomycin 17.0 mcg/mL [facility] Comment:Expected Range (Trou gh): 10-20 mcg/ml Blood 12/13/2023 5:24 PM CDT 12/13/2023 5:46 PM CDT Narrative [facility] - 12/13/2023 6:34 PM CDT Please ensure trough level drawn prior to next vancomycin dose. Thank you Peak or trough:->Trough Eusebio Perez PharmD LABORATORY [facility] [address] [address] * (ABNORMAL) CBC WITH PLTS/AUTO DIFF (12/11/2023 5:50 AM CDT) Only the most recent of3 resultswithin the time period is included. WBC 8.72 4.00 - 10.00 k/cmm [facility] RBC 3.82(L) 4.60 - 6.00 m/cmm [facility] Hgb 10.6(L) 13.1 - 17.5 g/dL [facility] Hematocrit 32.4(L) 40.0 - 51.0 % [facility] MCV 84.8 80.0 - 100.0 fL [facility] MCH 27.7 25.0 - 32.0 pg [facility] MCHC 32.7 31.0 - 36.0 g/dL [facility] RDW 13.5 11.5 - 14.5 % [facility] Plt 400 150 - 400 k/cmm [facility] MPV 9.3 6.5 - 12.5 fL [facility] Automated Abs Neutrophil 4.22 1.70 - 6.50 k/cmm [facility] Comment:Preliminary ANC, Fin al Result to Follow Abs Immature Granulocyte 0.09 0.00 - 0.09 k/cmm [facility] Comment:The Immature Granulo cyte Absolute count contains metamyelocytes and myelocytes. Abs Neutrophil 4.22 1.70 - 6.50 k/cmm [facility] Abs Lymphocyte 2.59 0.80 - 4.00 k/cmm [facility] Abs Monocyte 1.00 0.20 - 1.00 k/cmm [facility] Abs Eosinophil 0.79(H) 0.00 - 0.60 k/cmm [facility] Abs Basophil 0.03 0.00 - 0.20 k/cmm [facility] Blood 12/11/2023 5:50 AM CDT 12/11/2023 6:26 AM CDT Igor Glover MD LABORATORY [facility] [address] [address] * (ABNORMAL) PANEL BASIC METABOLIC (BMP) (12/11/2023 5:50 AM CDT) Only the most recent of4 resultswithin the time period is included. CO2 25 22 - 30 mmol/L [facility] Glucose 178(H) 70 - 100 mg/dL [facility] BUN 9 6 - 20 mg/dL [facility] Creatinine 0.92 0.70 - 1.25 mg/dL [facility] Calcium 9.0 8.6 - 10.0 mg/dL [facility] Sodium 136 135 - 148 mmol/L [facility] Potassium 4.1 3.5 - 5.3 mmol/L [facility] Chloride 100 92 - 108 mmol/L [facility] eGFR (2020 CKD-EPI) 105 >=60 ml/min/1.7 3m2 [facility] Comment: The estimated glomerular filtration rate (eGFR) was calculated using the CKD-EPI 2020 creatinine equation, which does not include race as a factor. This equation is validated in individuals 18 years of age and older, and eGFR is normalized to a body surface area of 1.73m^2. AnGap 11 8 - 16 mmol/L [facility] Blood 12/11/2023 5:50 AM CDT 12/11/2023 6:25 AM CDT Igor Glover MD LABORATORY [facility] [address] [address] * XR CHEST 2 VIEWS PA + [...] ?12/10/2023 12:07 CDT ? Accession Number: ? [id number] ? Surgical Pathology Final Report Specimen Type: [...] Regalado M.D. Attending Pathologist. DDB/DDB 12.10.2023 13:39 [facility] AP Specimen FOOT STRUCTURE / Unknown 12/10/2023 11:07 AM CDT Comment:OR: Routine gross an d microscopic examination Tissue: 1st metatarsel left foot, cut margin Site: foot Additional clinical information: Afshan Patino DPM LAB PATHOLOGY [facility] [address] [address] * HBO TCO2 MEASUREMENT COMPLETE (12/09/2023 10:25 [...] Reg 2002; 10:198-207. Bridget QUIÑONEZ et al. [facility] 2009, Vol. 36(1). ? [place] 07/27/13 Afshan Shafer PA-C HYPERBARIC CHAMBE R * (ABNORMAL) SED RATE (ESR) (12/08/2023 4:47 PM CDT) Only the most recent of2 resultswithin the time period is included. Sed Rate 120(H) 2 - 10 mm/hr [facility] Blood 12/08/2023 4:47 PM CDT 12/08/2023 5:07 PM CDT Afshan Shafer PA-C LABORATORY Performing Organization Address [facility] Co de Phone Number [facility] [address] [address] * (ABNORMAL) GLYCOSYLATED HGB - A1C (12/08/2023 4:47 PM CDT) Hemoglobin A1C 8.5(H) 4.0 - 5.6 % [facility] Comment: Increased risk for diabetes (prediabetes): 5.7-6.4% Diabetes >=6.5% In the absence of unequivocal hyperglycemia, diagnosis requires two abnormal test results (i.e. HbA1c and glucose) or two abnormal results from specimens collected at two different timepoints. The presence of some hemoglobin variants or red cell disorders may interfere with the measurement of hemoglobin A1c (HbA1c). Estimated Average Glucose 197(H) 68 - 114 [facility] Comment: The estimated Average Glucose (eAG) was calculated using an equation derived from a study of 507 adults with type 1, type 2, or no diabetes. Minority populations were underrepresented and children were not included. The eAG is not equivalent to a fasting glucose concentration. Blood 12/08/2023 4:47 PM CDT 12/08/2023 5:07 PM CDT Narrative [facility] - 12/08/2023 6:01 PM CDT If not done in the last 30 days. Afshan Shafer PA-C LABORATORY Performing Organization Address City/[facility]/ZIP Co de Phone Number [facility] [address] [address] * (ABNORMAL) C-REACTIVE PROTEIN (12/08/2023 4:47 PM CDT) Only the most recent of2 resultswithin the time period is included. [facility] C-Reactive Protein 77(H) <=4 mg/L [facility] Blood 12/08/2023 4:47 PM CDT 12/08/2023 5:07 PM CDT Afshan Shafer PA-C LABORATORY Performing Organization Address City/[facility] Co de Phone Number [facility] [address] [address] * (ABNORMAL) CBC WITH PLATELET (12/08/2023 4:47 PM CDT) [facility] WBC 10.39(H) 4.00 - 10.00 k/cmm [facility] RBC 3.59(L) 4.60 - 6.00 m/cmm [facility] Hgb 9.8(L) 13.1 - 17.5 g/dL [facility] Hematocrit 30.8(L) 40.0 - 51.0 % [facility] MCV 85.8 80.0 - 100.0 fL [facility] MCH 27.3 25.0 - 32.0 pg [facility] MCHC 31.8 31.0 - 36.0 g/dL [facility] RDW 13.5 11.5 - 14.5 % [facility] Plt 314 150 - 400 k/cmm [facility] MPV 9.3 6.5 - 12.5 fL [facility] Blood 12/08/2023 4:47 PM CDT 12/08/2023 5:07 PM CDT Afshan Shafer PA-C LABORATORY Performing Organization Address City/[facility]/ZIP Co de Phone Number [facility] [address] [address] * (ABNORMAL) TISSUE CULTURE:INCLUDES GRAM STAIN (12/08/2023 7:51 AM CDT) Only the most recent of2 resultswithin the time period is included. Final Report Positive Culture Few METHICILLIN RESISTANT Staphylococcus aureus (MRSA) isolated. 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 For susceptibility, see previous report on culture from wound culture collected 12/07/23. (POS) [facility] Organism METHICILLIN RESISTANT STAPHYLOCOCCUS AUREUS (MRSA)(POS) [facility] Gram Stain Report Corrected Report Positive Gram stain Rare PMN's seen. Rare gram positive cocci. Gram stain electronically reported to and acknowledged by: Dr. Healy Marker from OR at ??12/08/2023 10:09:09 by Jacklyn Easley MLS. Removed Pleomorphic gram variable bacilli from report. Results electronically reported to and acknowledged by: Dr. Igor Glover [facility] 12/09/2023 12:48:27. Elizabeth Schwartz MLS. (POS) [facility] Bone STRUCTURE OF LEFT FOOT / Unknown 12/08/2023 7:51 AM CDT 12/08/2023 9:00 AM CDT Comment:2. Bone first metata rsal left foot Chekatelin Campos [employer] LAB MICROBIOLOGY Performing Organization Address [facility] Co de Phone Number [facility] [address] [address] * FUNGUS CULTURE:INCLUDES SUHAS (12/08/2023 7:51 AM CDT) Only the most recent of2 resultswithin the time period is included. Final Report No fungus isolated. [facility] SUHAS Prep No fungal elements seen. [facility] Bone STRUCTURE OF LEFT FOOT / Unknown 12/08/2023 7:51 AM CDT 12/08/2023 9:00 AM CDT Comment:2. Bone first metata rsal left foot Hce L Beth DPM LAB MICROBIOLOGY Performing Organization Address City/[facility]/ZIP Co de Phone Number [facility] [address] [address] * ANAEROBE CULTURE (12/08/2023 7:51 AM CDT) Only the most recent of2 resultswithin the time period is included. Pathologist [facility] Final Report No anaerobes isolated. [facility] Bone STRUCTURE OF LEFT FOOT / Unknown 12/08/2023 7:51 AM CDT 12/08/2023 9:00 AM CDT Comment:2. Bone first metata rsal left foot Che Campos DPM LAB MICROBIOLOGY Performing Organization Address [facility] Co de Phone Number [facility] [address] [address] * EXTRA TUBE - DARK GREEN (12/07/2023 4:05 PM CDT) Pathologist [facility] DARK GREEN TUBE Stored [facility] Comment:Dark Green tubes (Li thium Heparin) are stored in the lab for 1 day from the collection date. Blood 12/07/2023 4:05 PM CDT 12/07/2023 4:24 PM CDT Eusebio Vivar MD LABORATORY Performing Organization Address [facility] Co de Phone Number [facility] [address] [address] * EXTRA TUBE - BLUE (12/07/2023 4:05 PM CDT) Pathologist [facility] BLUE TUBE [facility] Comment:Blue top(Sodium citr ate) tubes are kept for 3 days from the collection date. Blood 12/07/2023 4:05 PM CDT 12/07/2023 4:24 PM CDT Eusebio Vivar MD LABORATORY Performing Organization Address [facility] Co de Phone Number [facility] [address] [address] * (ABNORMAL) ED CHEMISTRY LABS(NA,K,CL,CO2,GLU,CREAT,CA-IONIZED,ANION GAP) (12/07/2023 4:05 PM CDT) Pathologist [facility] Sodium 139 135 - 148 mmol/L [facility] Chloride 97 92 - 108 mmol/L [facility] AnGap 15 8 - 16 mmol/L [facility] Glucose 284(H) 70 - 100 mg/dL [facility] ICA, Actual 4.89 4.40 - 5.20 mg/dL [facility] ICA, pH Corrected 4.74 4.40 - 5.20 mg/dL [facility] Creatinine 1.26(H) 0.70 - 1.25 mg/dL [facility] BICARB 26 22 - 26 mEq/L [facility] eGFR (2020 CKD-EPI) 72 >=60 ml/min/1.7 3m2 [facility] Comment: The estimated glomerular filtration rate (eGFR) was calculated using the CKD-EPI 2020 creatinine equation, which does not include race as a factor. This equation is validated in individuals 18 years of age and older, and eGFR is normalized to a body surface area of 1.73m^2. Potassium 4.5 3.5 - 5.3 mmol/L [facility] Blood 12/07/2023 4:05 PM CDT 12/07/2023 4:27 PM CDT Eusebio Vivar MD LABORATORY [facility] [place] [id number] * LACTATE (LACTIC ACID) (12/07/2023 4:05 PM CDT) Lactate 2.1 0.7 - 2.1 mmol/L [facility] Blood 12/07/2023 4:05 PM CDT 12/07/2023 4:27 PM CDT Narrative [facility] - 12/07/2023 4:27 PM CDT Send specimen on ice! Eusebio Vivar MD LABORATORY [facility] [place] [id number] * BLOOD AEROBIC/ANAEROBIC CULTURE (12/07/2023 4:05 PM CDT) Final Report No growth after 5 days. [facility] Blood (Peripheral) 12/07/2023 4:05 PM CDT 12/07/2023 7:55 PM CDT Eusebio Vivar MD LAB MICROBIOLOGY [facility] [address] [id number] * (ABNORMAL) WOUND CULTURE:GRAM STAIN OPTIONAL (12/07/2023 3:00 PM CDT) Final Report Rare METHICILLIN RESISTANT Staphylococcus aureus (MRSA) isolated. 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 Rare Corynebacterium striatum group isolated. A member of the diphtheroid bacilli. (POS) [facility] Organism METHICILLIN RESISTANT STAPHYLOCOCCUS AUREUS (MRSA)(POS) [facility] Organism CORYNEBACTERIUM STRIATUM GROUP(POS) [facility] Gram Stain Report No PMN's seen. No organisms seen. [facility] Swab STRUCTURE OF LEFT FOOT / Unknown 12/07/2023 3:00 PM CDT 12/07/2023 5:23 PM CDT Narrative [facility] - 12/10/2023 10:38 AM CDT Left [...] 1: Sensitive Che Campos DPM LAB MICROBIOLOGY [facility] [address] [address] * HIV COMBO (11/15/2023 7:39 AM CDT) HIV Antigen-Antibody Nonreactive Nonreactive [facility] Comment:Performance characte ristics have not been established with this test on patients less than 2 years of age. Blood 11/15/2023 7:39 AM CDT 11/15/2023 7:58 AM CDT Zac Jackson MD LABORATORY [facility] [address] [address] from Last 3 Months or Most Recently Relevant to Health Maintenance Additional Health Concerns Infection Onset Date Last Indicated MRSA 11/17/2023 12/08/2023 Advance Directives For more information, please contact: [phone] * Full Code (Latest Code Status on [...]
--- OUTSIDE RECORDS SUMMARY | 2024-02-28 09:04 | XMS_ITS | Encounter Summary ---
Author Organization [facility] Address [address] [place] [address] Phone Care Team Providers Care Mailroom Messenger Name Role Phone Unavailable Primary Care Provider [...]
--- OUTSIDE RECORDS SUMMARY | 2024-02-28 09:04 | XMS_ITS | Encounter Summary ---
Author Organization [facility] Address [address] [place] [address] Phone Care Team Providers Care Circuit Court Judge Name Role Phone Unavailable Primary Care Provider [...]
--- OUTSIDE RECORDS SUMMARY | 2024-02-28 09:04 | XMS_ITS | Encounter Summary ---
Author Organization [facility] Address [address] [place] [place] [address] Phone Care Team Providers Care Channel Account Manager Name Role Phone Unavailable Primary Care Provider Unavailabl e Encounter Details Date Type Department Care Team (Latest Contact Info) Description 01/11/2024 10:01 AM CDT - 01/11/2024 11:59 PM CDT Hospital Encounter [facility] Hyperbaric [address] [place] [address] Nikolai Martinez MD [address] [facility] [place], [place] [address] Rpwnlzl, Fqb - [id number] Discharge Disposition: Discharged to home or self [...] hesitate to call the Hyperbaric Department at [phone] during clinic hours or page nutrition club ambassador staff with any updates, questions, or concerns. Mayuri Hinojosa APRN, DRY COLOR MIXER, 01/11/2024 12:21 PM Continuous attending physician supervision was provided throughout the hyperbaric oxygen treatment. I have reviewed and agree with the treatment note created by Nurse Practitioner: Mayuri Hinojosa APRN, JOY OPERATOR HELPER. documented in this encounter Plan of Treatment Not on file documented as of this encounter Procedures Procedure Name Priority Date/Time Associated Diagnosis Comments POC GLUCOSE Routine 01/11/2024 10:00 AM CDT documented in this encounter Results * (ABNORMAL) POC GLUCOSE (01/11/2024 10:00 AM CDT) POC Glucose 362(H) 70 - 100 mg/dL [facility] Blood 01/11/2024 10:0 0 AM CDT Nikolai Martinez MD LABORATORY [facility] [address] [place] [address], documented in this encounter Visit Diagnoses Diagnosis Soft tissue infection- Primary Unspecified infectious and parasitic diseases Other acute osteomyelitis of left foot (CMS/HHS) documented in this encounter Additional Health Concerns Infection Onset Date Last Indicated Resolved Time 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
--- OUTSIDE RECORDS SUMMARY | 2024-02-28 09:04 | XMS_ITS | Encounter Summary ---
Author Organization [facility] Address [address] [facility] [place] [address] Phone Care Team Providers Care Principal Planner Name Role Phone Unavailable Primary Care Provider Unavailabl e Encounter Details Date Type Department Care Team (Latest Contact Info) Description 01/07/2024 10:06 AM CDT - 01/07/2024 11:59 PM CDT Hospital Encounter [facility] [place]baric [address] [place] [address] Maggy Horan MD 701 [place], [place] [address] [facility], Dhs - [address] Discharge Disposition: Discharged to home or self [...] hesitate to call the Hyperbaric Department at [phone] during clinic hours or page transonic engineer staff with any updates, questions, or [...] POC Glucose 344(H) 70 - 100 mg/dL [facility] POINT [facility] Blood 01/07/2024 12:2 7 PM CDT Maggy Horan MD LABORATORY Performing Organization Address [facility] Co de Phone Number [facility] POINT OF CARE [address] [place], [place] [address], * (ABNORMAL) POC GLUCOSE (01/07/2024 10:20 AM CDT) POC Glucose 357(H) 70 - 100 mg/dL [facility] Blood 01/07/2024 10:2 0 AM CDT Maggy Horan MD LABORATORY Performing Organization Address City/[facility] Co de Phone Number [facility] POINT OF CARE [address] [place] [phone], documented in this encounter Visit Diagnoses Diagnosis Soft tissue infection- Primary Unspecified infectious and parasitic diseases Other acute osteomyelitis of left foot ([facility]) documented in this encounter Additional Health Concerns Infection Onset Date Last Indicated Resolved Time 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
--- OUTSIDE RECORDS SUMMARY | 2024-02-28 09:04 | XMS_ITS | Encounter Summary ---
Author Organization [facility] Address [address] [place] [address] Phone Care Team Providers Care Chimney Builder Helper Name Role Phone Unavailable Primary Care [...]
--- OUTSIDE RECORDS SUMMARY | 2024-02-28 09:04 | XMS_ITS | Encounter Summary ---
Author Organization [facility] Address [address] [place] [address] Phone Care Team Providers Care Cot Assembler Name Role Phone Unavailable Primary Care Provider [...]
--- OUTSIDE RECORDS SUMMARY | 2024-02-28 09:04 | XMS_ITS | Encounter Summary ---
Author Organization [facility] Address [address] [place] [address] Phone Care Team Providers Care Technical Writer And Editor Name Role Phone Unavailable Primary Care Provider Unavailabl e Encounter Details Date Type Department Care Team (Late st Contact Info) Description 01/06/2024 9:50 AM CDT - 01/06/2024 11:59 PM CDT Hospital Encounter [facility] Hyperbaric [address] [facility] 9[address] [place], [place] [address] SophiaDavid ward MD 701 [facility] 825 [place], [place] [phone] Routine, Hbo - [id number] Discharge Disposition: Discharged to home or self [...] hesitate to call the Hyperbaric Department at [phone] during clinic hours or page field artillery cannoneer staff with any updates, questions, or concerns. [...] POC Glucose 308(H) 70 - 100 mg/dL [facility] Blood 01/06/2024 9:52 AM CDT David Cortes MD LABORATORY [facility]ARE [address] [place] [address], documented in this encounter Visit Diagnoses Diagnosis Soft tissue infection- Primary Unspecified infectious and parasitic diseases Other acute osteomyelitis of left foot (CMS/HHS) documented in this encounter Additional Health Concerns Infection Onset Date Last Indicated Resolved Time 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
--- OUTSIDE RECORDS SUMMARY | 2024-02-28 09:04 | XMS_ITS | Encounter Summary ---
Author Organization [facility] Address [address] [place] [address] Phone Care Team Providers Care Border Machine Operator Name Role Phone Unavailable Primary Care Provider Unavailabl e Encounter Details Date Type Department Care Team (Late st Contact Info) Description 01/06/2024 9:40 AM CDT - 01/06/2024 11:59 PM CDT Hospital En[place] [facility] [place] [address] [facility] 9[address] [place], [place] [phone] David Cortes MD 701 [facility] 825 [place], [place] [phone] Discharge Disposition: Discharged to home or self [...]
--- OUTSIDE RECORDS SUMMARY | 2024-02-28 09:04 | XMS_ITS | Encounter Summary ---
Author Organization [facility] Address [address] [place] [address] Phone Care Team Providers Care Business Objects Architect Name Role Phone Unavailable Primary Care Provider Unavailabl e Encounter Details Date Type Department Care Team (Late st Contact Info) Description 01/20/2024 9:54 AM CDT - 01/20/2024 11:59 PM CDT Hospital Encounter [facility] Hyperbaric [address] [facility] 980 [place], [place] [phone] SophiaDavid ward MD 701 [facility] [address]25 [place], [place] [address] Routine, Hbo - [phone] Discharge Disposition: Discharged to home or self [...] hesitate to call the Hyperbaric Department at [phone] during clinic hours or page water pollution control technician staff with any updates, questions, or concerns. Associated attestation - David Cortes MD - 01/20/2024 2:49 PM CDT Continuous attending physician supervision was provided throughout the hyperbaric oxygen treatment.I have reviewed and agree with treatment note created by the Hyperbaric Medicine Fellow, Dr. Mcconnell. David Cortes MD, 01/20/2024 2:49 PM * David Cortes MD - 01/20/2024 10:30 AM CDT [facility] HYPERBARIC MEDICINE TREATMENT SUMMARY Consulting physician: Dr. Julio Cortes M.D. 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 Each treatment was at 2.5 TOSHA for 90 minutes on 100% oxygen. Overall the patient did well with his treatments and would be considered a success for significant improvement of his wound. He had no compliance issues during the course of his therapy sessions. We discussed and urged continued close follow up with his Solar Electric Practitioner for local wound care and monitoring. We noted our availability should future concern of complicated wound develop or as needed surrounding and in support of surgical interventions. Please do not hesitate to call the Hyperbaric Department at [phone] during clinic hours or page water pollution control technician staff with any updates, questions, or concerns. Kit Mcconnell MD Hyperbaric Medicine Fellow I reviewed, edited and agree with the treatment summary. David Cortes MD, 01/20/2024 2:51 PM documented in this encounter Plan of Treatment Not on file documented as of this encounter Visit Diagnoses Diagnosis Soft tissue infection- Primary Unspecified infectious and parasitic diseases Other acute osteomyelitis of left foot ([facility]) documented in this encounter Additional Health Concerns Infection Onset Date Last Indicated Resolved Time 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
--- OUTSIDE RECORDS SUMMARY | 2024-02-28 09:04 | XMS_ITS | Encounter Summary ---
Author Organization [facility] Address [address] [place] [address] Phone Care Team Providers Care Precision Instrument And Tool Maker Name Role Phone Unavailable Primary [...]
--- OUTSIDE RECORDS SUMMARY | 2024-02-28 09:04 | XMS_ITS | Encounter Summary ---
Author Organization [facility] Address [address] [place] [address] Phone Care Team Providers Care Welding Machine Operator Name Role Phone Unavailable Primary [...]
--- OUTSIDE RECORDS SUMMARY | 2024-02-28 09:04 | XMS_ITS | Encounter Summary ---
Author Organization [facility] Address [address] [place] [address] Phone Care Team Providers Care Product Development Scientist Name Role Phone Unavailable Primary Care Provider Unavailabl e Reason for Visit * Reason Comments Follow-up Encounter Details Date Type Department Care Team (Late st Contact Info) Description 01/20/2024 1:30 PM CDT [facility] [address] [address] Afshan Sims, DPMorelia [address] [phone] S/P foot surgery, right (Primary Dx); 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[facility]) Discharge Disposition: Discharged to home or [...] Schizophrenia History of TBI --Patient is own [facility] Clinic plan: -Discussed postoperative course and expectations -Advised patient that the incision has healed -Okay to begin wearing regular tennis shoes -[facility]. They will be delivered to patient once they are ready. He is to begin wearing diabetic shoes and inserts once they arrive -There are no restrictions from our standpoint for the patient -[place] paperwork completed and returned to patient Return [...] He is hoping he can move his alf. He has no other question or concerns [...] S/P foot surgery, right- Primary 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CMS/[facility]) documented in this encounter Additional Health Concerns Infection Onset Date Last Indicated Resolved Time 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
--- OUTSIDE RECORDS SUMMARY | 2024-02-28 09:04 | XMS_ITS | Encounter Summary ---
Author Organization [facility] Address [address] [facility] [address] Phone Care Team Providers Care Automotive Mechanical Engineer Name Role Phone Unavailable Primary Care Provider Unavailabl e Encounter Details Date Type Department Care Team (Latest Contact Info) Description 01/19/2024 10:30 AM CDT - 01/19/2024 11:59 PM CDT Hospital Encounter [facility] Hyperbaric [address] [place] [address] Nikolai Martinez MD 701 [facility] [address] [place], [place] [address] Ywnxbfu, Thp - [id number] Discharge Disposition: Discharged to home or self [...] hesitate to call the Hyperbaric Department at [phone] during clinic hours or page production support consultant staff with any updates, questions, or [...] POC Glucose 323(H) 70 - 100 mg/dL [facility] Blood 01/19/2024 12:2 2 PM CDT Nikolai Martinez MD LABORATORY Performing Organization Address City/State/[facility] Co de Phone Number [facility] [address] [place] [address], * (ABNORMAL) POC GLUCOSE (01/19/2024 9:58 AM CDT) POC Glucose 353(H) 70 - 100 mg/dL [facility] Blood 01/19/2024 9:58 AM CDT Provider Unknown LABORATORY [facility] - POINT OF CARE [address] [place] [address], documented in this encounter Visit Diagnoses Diagnosis Soft tissue infection- Primary Unspecified infectious and parasitic diseases Other acute osteomyelitis of left foot (CMS/HHS) documented in this encounter Additional Health Concerns Infection Onset Date Last Indicated Resolved Time 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
--- OUTSIDE RECORDS SUMMARY | 2024-02-28 09:04 | XMS_ITS | Encounter Summary ---
Author Organization [facility] Address [address] [place] [address] Phone Care Team Providers Care Casting Wheel Operator Name Role Phone Unavailable Primary Care Provider Unavailabl e Encounter Details Date Type Department Care Team (Late st Contact Info) Description 01/12/2024 9:53 AM CDT - 01/12/2024 11:59 PM CDT Hospital Encounter [facility] Hyperbaric [address] [facility] 980 [place], [place] [phone] SophiaDavid ward MD 701 [facility] 825 [place], [place] [address] Routine, Hbo - [id number] Discharge Disposition: Discharged to home or self [...] hesitate to call the Hyperbaric Department at [phone] during clinic hours or page sugar plantation manager staff with any updates, questions, or [...] POC Glucose 414(H) 70 - 100 mg/dL [facility] POINT [facility] C[facility] Blood 01/12/2024 10:0 2 AM CDT David Cortes MD LABORATORY [facility] [address] [place] [address], documented in this encounter Visit Diagnoses Diagnosis Soft tissue infection- Primary Unspecified infectious and parasitic diseases Other acute osteomyelitis of left foot (CMS/HHS) documented in this encounter Additional Health Concerns Infection Onset Date Last Indicated Resolved Time 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
--- OUTSIDE RECORDS SUMMARY | 2024-02-28 09:04 | XMS_ITS | Encounter Summary ---
Author Organization [facility] Address [address] [place] [address] Phone Care Team Providers Care Associate Consulting Engineer Name Role Phone Unavailable Primary Care [...]
--- OUTSIDE RECORDS SUMMARY | 2024-02-28 09:04 | XMS_ITS | Encounter Summary ---
Author Organization [facility] Address [address] [place] [address] Phone Care Team Providers Care Channeling Machine Runner Name Role Phone Unavailable Primary Care Provider Unavailabl e Encounter Details Date Type Department Care Team (Latest Contact Info) Description 01/17/2024 9:42 AM CDT - 01/17/2024 11:59 PM CDT Hospital Encounter [facility] Hyperbaric 701 [facility] 980 [place] [address] Masters, Douglas Osuna II, MD 701 [facility] 825 [place], [place] [address] Routine, Wwt - [id number] Discharge Disposition: Discharged to home or self [...] multiple numbers for his convenience locally in [place] for evaluation. HPI, problem list, nursing notes, [...] hesitate to call the Hyperbaric Department at [phone] during clinic hours or page cushion filler staff with any updates, questions, or concerns. [...] POC Glucose 288(H) 70 - 100 mg/dL [facility] Blood 01/17/2024 12:1 9 PM CDT Douglas Morris II, MD LABORATORY [facility] [address] [place] [address], * (ABNORMAL) POC GLUCOSE (01/17/2024 9:59 AM CDT) POC Glucose 323(H) 70 - 100 mg/dL [facility] Blood 01/17/2024 9:59 AM CDT Narrative Authorizing Provider Result Kiki Mroris II, MD LABORATORY Performing Organization Address City/State/[facility] Co de Phone Number [facility] POINT [facility] CARE [address] [place] [address], documented in this encounter Visit Diagnoses Diagnosis Soft tissue infection- Primary Unspecified infectious and parasitic diseases Other acute osteomyelitis of left foot ([facility]) documented in this encounter Administered Medications Inactive [...]
--- OUTSIDE RECORDS SUMMARY | 2024-02-28 09:04 | XMS_ITS | Encounter Summary ---
Author Organization [facility] Address [address] [place] [address] Phone Care Team Providers Care Front Desk Monitor Name Role Phone Unavailable Primary Care Provider [...]
--- OUTSIDE RECORDS SUMMARY | 2024-02-28 09:04 | XMS_ITS | Encounter Summary ---
Author Organization [facility] Address [address] [place] [address] Phone Care Team Providers Care Heavy Rail Train Operator Name Role Phone Unavailable Primary Care Provider Unavailabl e Encounter Details Date Type Department Care Team (Late st Contact Info) Description 01/18/2024 10:06 AM CDT - 01/18/2024 11:59 PM CDT Hospital Encounter [facility] Hyperbaric [address] [facility] 980 [place], [place] [address] SophiaDavid ward MD 701 [facility] 825 [place], [place] [address] Routine, Hbo - [phone] Discharge Disposition: Discharged to home or self [...] hesitate to call the Hyperbaric Department at [phone] during clinic hours or page production potter staff with any updates, questions, or concerns. [...]
--- OUTSIDE RECORDS SUMMARY | 2024-02-28 09:05 | XMS_ITS | Encounter Summary ---
Author Organization [facility] Address [address] [facility] [place] [address] Phone Care Team Providers Care Linotype Operator Name Role Phone Unavailable Primary Care Provider Unavailabl e Encounter Details Date Type Department Care Team (Late st Contact Info) Description 01/05/2024 Orders Only [facility] Hyperbaric [address] [place], [place] [address] Talita Patel MD 701 [place], [place] [phone] Social History Tobacco Use Types Packs/Day Years [...]
--- OUTSIDE RECORDS SUMMARY | 2024-02-28 09:05 | XMS_ITS | Encounter Summary ---
Author Organization [facility] Address [address] [place] [address] Phone Care Team Providers Care Road Test Examiner Name Role Phone Unavailable Primary Care Provider Unavailabl e Encounter Details Date Type Department Care Team (Late st Contact Info) Description 01/05/2024 9:32 AM CDT - 01/05/2024 11:59 PM CDT Hospital Encounter [facility] Hyperbaric [address] [facility] 980 [place], [place] [address] SophiaDavid ward MD 701 [facility] 825 [place], [place] [address] Routine, Hbo - [id number] Discharge Disposition: Discharged to home or self [...] hesitate to call the Hyperbaric Department at [phone] during clinic hours or page web communications specialist staff with any updates, questions, or [...] POC Glucose 328(H) 70 - 100 mg/dL [facility] POINT [facility] CARE Blood 01/05/2024 9:54 AM CDT David Cortes MD LABORATORY [facility] - POINT OF CARE [address] [place] [address], documented in this encounter Visit Diagnoses Diagnosis Soft tissue infection- Primary Unspecified infectious and parasitic diseases Other acute osteomyelitis of left foot ([facility]) documented in this encounter Additional Health Concerns Infection Onset Date Last Indicated Resolved Time 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
--- OUTSIDE RECORDS SUMMARY | 2024-02-28 09:05 | XMS_ITS | Encounter Summary ---
Author Organization [facility] Address [address] [place] [address] Phone Care Team Providers Care Health And Safety Trainer Name Role Phone Unavailable Primary Care [...]
--- OUTSIDE RECORDS SUMMARY | 2024-02-28 09:05 | XMS_ITS | Encounter Summary ---
Author Organization [facility] Address 1 [place] [address] Phone Care Team Providers Care Mainspring Fabrication Supervisor Name Role Phone Unavailable Primary Care Provider Unavailabl e Reason for Visit * Reason Onset Date Comments Care Coordination 12/28/2023 Called to disc us outpatient HBOT schedule Encounter Details Date Type Department Care Team (Late st Contact Info) Description 12/28/2023 Telephone [facility] Hyperbaric [address] [address] Dayanna Rodriugez RN 701 [place] [address] Care Coordination (Called to discuss outpatient HBOT [...] schedule was printedand faxed to Vannesa at [phone]. She reported that she may need x 2 days to get transport set up. documented in this encounter Plan of Treatment Not on file documented as of this encounter Visit Diagnoses Not on filedocumented in this encounter Additional Health Concerns Infection Onset Date Last Indicated Resolved Time 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
--- OUTSIDE RECORDS SUMMARY | 2024-02-28 09:05 | XMS_ITS | Encounter Summary ---
Author Organization [facility] Address [address] [place] [address] Phone Care Team Providers Care Fabrication Mig Welder Name Role Phone Unavailable Primary Care Provider [...]
--- OUTSIDE RECORDS SUMMARY | 2024-02-28 09:05 | XMS_ITS | Encounter Summary ---
Author Organization 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 Okay to discharge to [facility] if there is somebody who can do dressing changes daily. Appointment has been made for follow-up on 01/28/2024 documented in this encounter Progress Notes * 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 APRN, PATRICIA - 12/24/2023 10:00 AM CDT Images from the original note were not included. [facility] PROVIDER SURGERY CLINIC VISIT NOTE - HONEY PRODUCER Stephanie Low : 1980 Sex: male Plan : Continue wet-to-dry dressing changes with Vashe to the groin incision. With the each dressing change; make sure the groin area is clean and dry. Utilize Interdry to keep abdominal fluids and groin dry Okay for patient to discharge [facility] if help is available to change the [...] No 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 APRN, CNP 12/24/2023 13:40 [facility] Department of Surgery Pager: via [employer] I have spent 30 minutes with this patient today in which greater than 50% of this time was spent incounseling/coordination of care regarding in patient care, review of imaging/labs, chart review andconsultant recommendations. Dictation Disclaimer: Some notes are completed with voice-recognition dictation software. Errors are generally corrected in real time. Please contact me via [employer] staff message if you note any errors [...]
--- OUTSIDE RECORDS SUMMARY | 2024-02-28 09:05 | XMS_ITS | Encounter Summary ---
Author Organization [facility] Address [address] [place] [address] Phone Care Team Providers Care Air Turning Machine Feeder Name Role Phone Unavailable Primary [...] 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"
--- OUTSIDE RECORDS SUMMARY | 2024-02-28 09:05 | XMS_ITS | Encounter Summary ---
Author Organization [facility] Address [address] [place] [address] Phone Care Team Providers Care Radiology Physician Assistant Name Role Phone Unavailable Primary Care Provider [...]
--- OUTSIDE RECORDS SUMMARY | 2024-02-28 09:05 | XMS_ITS | Encounter Summary ---
Author Organization [facility] Address [address] [place] [address] Phone Care Team Providers Care Retail Merchandiser Name Role Phone Unavailable Primary Care Provider [...]
--- OUTSIDE RECORDS SUMMARY | 2024-02-28 09:05 | XMS_ITS | Encounter Summary ---
Author Organization [facility]Note 2[facility] Address [address] [place] [address] Phone Care Team Providers Care Kier Boiler Name Role Phone Unavailable Primary Care Provider [...]
--- OUTSIDE RECORDS SUMMARY | 2024-02-28 09:05 | XMS_ITS | Encounter Summary ---
Author Organization [facility] Address [address] [place] [address] Phone Care Team Providers Care Leveler Name Role Phone Unavailable Primary Care Provider Unavailabl e Reason for Visit * Reason Comments Post Op Encounter Details Date Type Department Care Team (Late st Contact Info) Description 12/31/2023 1:00 PM CDT Office Visit [facility] [address] [address] Afshan Sims, DPMorelia [address] [phone] S/P foot surgery, right (Primary Dx) Discharge [...] follow up 3 weeks at the front end web designer - Please schedule an appointment with orthotics at the front end web designer for diabetic shoes and inserts - A [...] Schizophrenia History of TBI --Patient is own [facility] Clinic plan: -Discussed postoperative course and expectations -Sutures were removed today uneventfully -Okay for weightbearing as tolerated in surgical shoe only to complete daily activities. Surgical shoe dispensed today -New dressing applied today consisting of Betadine, 4 x 4 gauze, Luis F, Refguio. Okay for patient to remove the dressing [...] left until diabetic shoes and inserts arrive -[place] paperwork completed and returned to patient Return [...]
--- OUTSIDE RECORDS SUMMARY | 2024-02-28 09:05 | XMS_ITS | Encounter Summary ---
Author Organization [facility] Address [address] [place] [address] Phone Care Team Providers Care Train Operations Manager Name Role Phone Unavailable Primary Care Provider Unavailabl e Encounter Details Date Type Department Care Team (Latest Contact Info) Description 12/31/2023 9:51 AM CDT - 12/31/2023 11:59 PM CDT Hospital Encounter [facility] Hyperbaric 701 [facility] 980 [place] [address] Masters, Douglas Osuna II, MD 701 [facility] 825 [place], [place] [phone] Routine, Upp - [id number] Discharge Disposition: Discharged to home or self [...] hesitate to call the Hyperbaric Department at [phone] during clinic hours or page education reporter staff with any updates, questions, or concerns. [...] POC Glucose 295(H) 70 - 100 mg/dL [facility] Blood 12/31/2023 9:57 AM CDT Douglas Morris II, MD LABORATORY [facility]INT [facility]ARE [address] [place] [address], documented in this encounter Visit Diagnoses Diagnosis Soft tissue infection- Primary Unspecified infectious and parasitic diseases Other acute osteomyelitis of left foot ([facility]) documented in this encounter Administered Medications [...]
--- OUTSIDE RECORDS SUMMARY | 2024-02-28 09:05 | XMS_ITS | Encounter Summary ---
Author Organization [facility] Address 701 [place] [address] Phone Care Team Providers Care Film Composer Name Role Phone Unavailable Primary Care Provider Unavailabl e Encounter Details Date Type Department Care Team (Late st Contact Info) Description 12/30/2023 9:49 AM CDT - 12/30/2023 11:59 PM CDT Hospital Encounter [facility]baric [address] [facility] 980 [place], [place] [address] SophiaDavid ward MD 701 [facility] 825 [place], [place] [address] Routine, Hbo - [id number] Discharge Disposition: Discharged to home or self [...] hesitate to call the Hyperbaric Department at [phone] during clinic hours or page steel construction worker staff with any updates, questions, or concerns. [...] POC Glucose 352(H) 70 - 100 mg/dL [facility] - POINT OF CARE Blood 12/30/2023 9:54 AM CDT David Cortes MD LABORATORY [facility]ARE [address] [place] [address], documented in this encounter Visit Diagnoses Diagnosis Soft tissue infection- Primary Unspecified infectious and parasitic diseases Other acute osteomyelitis of left foot ([facility]) documented in this encounter Administered Medications [...]
--- OUTSIDE RECORDS SUMMARY | 2024-02-28 09:05 | XMS_ITS | Encounter Summary ---
Author Organization [facility] Address 1 [facility] [place] [address] Phone Care Team Providers Care Funnel Setter Name Role Phone Unavailable Primary Care Provider Unavailabl e Encounter Details Date Type Department Care Team (Latest Contact Info) Description 01/03/2024 9:33 AM CDT - 01/03/2024 11:59 PM CDT Hospital Encounter [facility] Hyperbaric [address] [facility] 980 [place] [address] Narcisa Sanford MD 701 [place], [place] [phone] [facility], Dte - [id number] Discharge Disposition: Discharged to home or self [...] hesitate to call the Hyperbaric Department at [phone] during clinic hours or page process validation engineer staff with any updates, questions, or [...] POC Glucose 305(H) 70 - 100 mg/dL [facility] - POINT OF CARE Blood 01/03/2024 9:50 AM CDT Narcisa Sanford MD LABORATORY [facility]INT [facility]ARE [address] [place] [address], documented in this encounter Visit Diagnoses Diagnosis [...]
--- OUTSIDE RECORDS SUMMARY | 2024-02-28 09:05 | XMS_ITS | Encounter Summary ---
Author Organization [facility] Address [address] [place] [address] Phone Care Team Providers Care Communications And Signals Supervisor Name Role Phone Unavailable Primary Care [...]
--- OUTSIDE RECORDS SUMMARY | 2024-02-28 09:05 | XMS_ITS | Encounter Summary ---
Author Organization [facility] Address 1 [facility] [place] [address] Phone Care Team Providers Care Editor Magazine Name Role Phone Unavailable Primary Care Provider Unavailabl e Encounter Details Date Type Department Care Team (Latest Contact Info) Description 12/29/2023 9:38 AM CDT - 12/29/2023 11:59 PM CDT Hospital Encounter [facility] Hyperbaric [address] [place] [address] Nikolai Martinez MD [address] [facility] [place], [place] 88[address] Xroyxew, Man - [phone] Discharge Disposition: Discharged to home or self [...] hesitate to call the Hyperbaric Department at [phone] during clinic hours or page project management professional staff with any updates, questions, or [...] Glucose 323(H) 70 - 100 mg/dL [facility] - POINT OF CARE Blood 12/29/2023 10:0 7 AM CDT Nikolai Martinez MD LABORATORY [facility] POINT OF CARE [address] [place] [address], documented in this encounter Visit Diagnoses Diagnosis Soft tissue infection- Primary Unspecified infectious and parasitic diseases Other acute osteomyelitis of left foot ([facility]) documented in this encounter Administered Medications Inactive [...]
--- OUTSIDE RECORDS SUMMARY | 2024-02-28 09:05 | XMS_ITS | Encounter Summary ---
Author Organization [facility] Address [address] [place] [address] Phone Care Team Providers Care Role Player Name Role Phone Unavailable Primary Care Provider [...]
--- OUTSIDE RECORDS SUMMARY | 2024-02-28 09:05 | XMS_ITS | Encounter Summary ---
Author Organization [facility] Address [address] [place] [address] Phone Care Team Providers Care Merchandising Representative Name Role Phone Unavailable Primary Care Provider Unavailabl e Reason for Visit * Reason Comments Wound Encounter Details Date Type Department Care Team (Late st Contact Info) Description 12/27/2023 9:00 AM CDT Nurse Only [facility] [address] [address] Afshan Sims, DPMorelia [address] [phone] Discharge Disposition: Discharged to home or self [...] on Original Admission: Yes Location:Groin Site Assessment Granular;Datto Rain-Wound Assessment Intact Tunneling or undermining present? [...]
--- OUTSIDE RECORDS SUMMARY | 2024-02-28 09:05 | XMS_ITS | Encounter Summary ---
Author Organization [facility] Address [address] [place] [address] Phone Care Team Providers Care Keycase Assembler Name Role Phone Unavailable Primary Care Provider Unavailabl e Encounter Details Date Type Department Care Team (Latest Contact Info) Description 01/04/2024 10:16 AM CDT - 01/04/2024 11:59 PM CDT Hospital Encounter [facility] Hyperbaric 701 [facility] 980 [place] [address] Masters, Douglas Osuna II, MD 701 [facility] 825 [place], [place] [address] Routine, Jvg - [id number] Discharge Disposition: Discharged to home or self [...] hesitate to call the Hyperbaric Department at [phone] during clinic hours or page protection mgr staff with any updates, questions, or concerns. [...] POC Glucose 340(H) 70 - 100 mg/dL [facility] - POINT OF CARE Blood 01/04/2024 10:0 3 AM CDT Douglas Morris II, MD LABORATORY [facility]ARE 860 [place] [address], documented in this encounter Visit Diagnoses Diagnosis Soft tissue infection- Primary Unspecified infectious and parasitic diseases Other acute osteomyelitis of left foot ([facility]) documented in this encounter Additional Health Concerns Infection Onset Date Last Indicated Resolved Time 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
--- OUTSIDE RECORDS SUMMARY | 2024-02-28 09:05 | XMS_ITS | Encounter Summary ---
Author Organization [facility] Address [address] [place] [address] Phone Care Team Providers Care Furniture Polisher Name Role Phone Unavailable Primary Care Provider [...]
--- OUTSIDE RECORDS SUMMARY | 2024-02-28 09:06 | XMS_ITS | Encounter Summary ---
Author Organization [facility] Address [address] [place] [address] Phone Care Team Providers Care Auto Porter Name Role Phone Unavailable Primary Care Provider [...]
--- OUTSIDE RECORDS SUMMARY | 2024-02-28 09:06 | XMS_ITS | Encounter Summary ---
Author Organization [facility] Address [address] [place] [address] Phone Care Team Providers Care Fan Balancer Name Role Phone Unavailable Primary Care Provider [...]
--- OUTSIDE RECORDS SUMMARY | 2024-02-28 09:06 | XMS_ITS | Encounter Summary ---
Author Organization [facility] Address [address] [place] [address] Phone Care Team Providers Care Marketing Reporting Analyst Name Role Phone Unavailable Primary Care [...] FULL BODY CHAMBER PER 30 MINUTE INTERVAL [place] PHYS/QHP ATTN&SUPVJ HYPRBARIC OXYGEN TX/SESSION Routine, Hbo - [id number] Referral ID Status Reason Start Date Expiration Date V isits Requested Visits Authorized [id number] Auth Not Needed 12/20/2023 03/09/2024 30 30 Encounter Details Date Type Department Care Team (Latest Contact Info) Description 12/23/2023 9:33 AM CDT - 12/23/2023 11:59 PM CDT Hospital Encounter [facility] Hyperbaric [address] [phone] Nikolai Martinez MD 701 [place], [place] [address] Routine, Hbo - [id number] Discharge Disposition: Discharged to home or self [...] hesitate to call the Hyperbaric Department at [phone] during clinic hours or page front office secretary staff with any updates, questions, or concerns. [...] POC Glucose 315(H) 70 - 100 mg/dL [facility] POINT [facility] CARE Blood 12/23/2023 10:2 7 AM CDT Nikoali Martinez MD LABORATORY [facility]ARE 701 [place] [address], documented in this encounter Visit Diagnoses Diagnosis Soft tissue infection- Primary Unspecified infectious and parasitic diseases Other acute osteomyelitis of left foot ([facility]) documented in this encounter Additional Health Concerns Infection Onset Date Last Indicated Resolved Time 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
--- OUTSIDE RECORDS SUMMARY | 2024-02-28 09:06 | XMS_ITS | Encounter Summary ---
Author Organization [facility] Address [address] [place] [address] Phone Care Team Providers Care Glass Forming Crew Member Name Role Phone Unavailable Primary Care Provider [...] ATTN&SUPVJ HYPRBARIC OXYGEN TX/SESSION Routine, Hbo - [id number] Referral ID Status Reason Start Date Expiration Date V isits Requested Visits Authorized [id number] Auth Not Needed 12/20/2023 03/09/2024 30 30 Encounter Details Date Type Department Care Team (Latest Contact Info) Description 12/20/2023 9:34 AM CDT - 12/20/2023 11:59 PM CDT Hospital Encounter [facility] [place]baric 701 [facility] 980 [place], [place] [address] Shawn Vines MD 701 [facility] 825 [place], [place] 7196[address] Routine, Hbo - [id number] Discharge Disposition: Discharged to home or self [...] hesitate to call the Hyperbaric Department at [phone] during clinic hours or page ribbon inker staff with any updates, questions, or concerns. Continuous attending physician supervision was provided throughout the hyperbaric oxygen treatment.I have reviewed and agree with treatment note created by Lor Hinojosa APRN, GIFT CONSULTANT. Shawn Vines MD, 12/20/2023 12:49 PM documented in this encounter Plan of Treatment Not on file documented as of this encounter Procedures Procedure Name Priority Date/Time Associated Diagnosis Comments POC GLUCOSE Routine 12/20/2023 12:28 PM CDT POC GLUCOSE Routine 12/20/2023 10:06 AM CDT documented in this encounter Results * (ABNORMAL) POC GLUCOSE (12/20/2023 12:28 PM CDT) POC Glucose 265(H) 70 - 100 mg/dL [facility] [place] [facility] POINT OF CARE Blood 12/20/2023 12:2 8 PM CDT Shawn Vines MD LABORATORY Performing Organization Address City/[facility]/ZIP Co de Phone Number [facility] POINT OF [facility] 701 [place] [address], * (ABNORMAL) POC GLUCOSE (12/20/2023 10:06 AM CDT) POC Glucose 284(H) 70 - 100 mg/dL [facility] PO[facility] Blood 12/20/2023 10:0 6 AM CDT Shawn Vines MD LABORATORY Performing Organization Address [facility] de Phone Number [facility] 701 [place] [address], [place] documented in this encounter Visit Diagnoses Diagnosis Soft tissue infection- Primary Unspecified infectious and parasitic diseases Other acute osteomyelitis of left foot ([facility]) documented in this encounter Administered Medications [...]
--- OUTSIDE RECORDS SUMMARY | 2024-02-28 09:06 | XMS_ITS | Encounter Summary ---
Author Organization [facility] Address [address] [place] [address] Phone Care Team Providers Care Yard Person Name Role Phone Unavailable Primary Care Provider Unavailabl e Reason for Visit * Reason Comments Follow-up Encounter Details Date Type Department Care Team (Late st Contact Info) Description 12/17/2023 1:45 PM CDT Office Visit [facility] [address] [address] Afshan Sims, DPMorelia [address] [address] S/P foot surgery, right (Primary Dx) Discharge [...] Schizophrenia History of TBI --Patient is own [facility] Clinic plan: -Discussed postoperative course [...] post partial first ray amputation, right foot Afshna Sims DPM, 12/20/2023 2:38 PM documented in this encounter Plan of Treatment Not on file documented as of this encounter Visit Diagnoses Diagnosis S/P foot surgery, right- Primary documented in this encounter Additional Health Concerns Infection Onset Date Last Indicated Resolved Time 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
--- OUTSIDE RECORDS SUMMARY | 2024-02-28 09:06 | XMS_ITS | Encounter Summary ---
Author Organization [facility] Address [address] [place] [address] Phone Care Team Providers Care Sports Media Name Role Phone Unavailable Primary Care Provider [...]
--- OUTSIDE RECORDS SUMMARY | 2024-02-28 09:06 | XMS_ITS | Encounter Summary ---
Author Organization [facility] Address 701 [facility] [place] [address] Phone Care Team Providers Care Image Processing Engineer Name Role Phone Unavailable Primary Care Provider Unavailabl e Reason for Visit * Reason Onset Date Comments Follow-up 12/14/2023 Encounter Details Date Type Department Care Team (Late st Contact Info) Description 12/14/2023 Telephone [facility] Medicine 1 701 [facility] R5.400 [place], [place] [address] Aretha Damon MD 701 [place], [place] [phone] Follow-up Social History Tobacco Use Types Packs/Day [...]
--- OUTSIDE RECORDS SUMMARY | 2024-02-28 09:06 | XMS_ITS | Encounter Summary ---
Author Organization [facility] Address [address] [place] [address] Phone Care Team Providers Care Water Plant Maintenance Mechanic Name Role Phone Unavailable Primary Care [...] FULL BODY CHAMBER PER 30 MINUTE INTERVAL [place] PHYS/QHP ATTN&SUPVJ HYPRBARIC OXYGEN TX/SESSION Routine, Hbo - [id number] Referral ID Status Reason Start Date Expiration Date V isits Requested Visits Authorized [id number] Auth Not Needed 12/20/2023 03/09/2024 30 30 Encounter Details Date Type Department Care Team (Latest Contact Info) Description 12/22/2023 9:43 AM CDT - 12/22/2023 11:59 PM CDT Hospital Encounter [facility] Hyperbaric 701 [facility] 980 [place], [place] [address] Narcisa Sanford MD 701 [place], [place] [address] Routine, Hbo - [id number] Discharge Disposition: Discharged to home or self [...] hesitate to call the Hyperbaric Department at [phone] during clinic hours or page habilitation specialist staff with any updates, questions, or concerns. Continuous attending physician supervision was provided throughout the hyperbaric oxygen treatment.I have reviewed and agree with treatment note created by the Hyperbaric Medicine Nurse Practitioner, Mayuri Hinojosa APRN, PUPPET DEVELOPER. Narcisa Sanford MD, 12/22/2023 3:23 PM documented in this encounter Plan of Treatment Not on file documented as of this encounter Procedures Procedure Name Priority Date/Time Associated Diagnosis Comments POC GLUCOSE Routine 12/22/2023 9:48 AM CDT documented in this encounter Results * (ABNORMAL) POC GLUCOSE (12/22/2023 9:48 AM CDT) POC Glucose 318(H) 70 - 100 mg/dL [facility] POINT [facility] CARE Blood 12/22/2023 9:48 AM CDT Nikolai Martinez MD LABORATORY [facility] POINT [facility] CARE [address] [place] [address], documented in this encounter Visit Diagnoses Diagnosis Soft tissue infection- Primary Unspecified infectious and parasitic diseases Other acute osteomyelitis of left foot ([facility]) documented in this encounter Additional Health Concerns Infection Onset Date Last Indicated Resolved Time 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
--- OUTSIDE RECORDS SUMMARY | 2024-02-28 09:07 | XMS_ITS | Encounter Summary ---
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[facility]) Clint Barber MD [address] [address] Referral ID Status Reason Start Date Expiration Date V isits Requested Visits Authorized [id number] New Request 12/14/2023 12/14/2024 1 1 * Consult/Test/Treat (Routine) - New Request Specialty Diagnoses / Procedures Referred By Contac t Referred To Contact Diagnoses Soft tissue infection Igor Glover MD [address] [address] PATIENT CHOICE Referral ID Status Reason Start Date Expiration Date V isits Requested Visits Authorized [id number] New Request 12/12/2023 12/12/2024 1 1 * Consult/Test/Treat (Routine) - New Request Specialty Diagnoses / Procedures Referred By Contac t Referred To Contact Physical Therapy / PHYSICAL THERAPY Diagnoses Soft tissue infection Igor Glover MD [address] [address] PATIENT CHOICE Referral ID Status Reason Start Date Expiration Date V isits Requested Visits Authorized [id number] New Request 12/12/2023 12/12/2024 1 1 Reason for Visit * Auth/Cert (Routine) Specialty Diagnoses / Procedures Referred By Contmini t Referred To Contact SURGERY Diagnoses Other acute osteomyelitis of left foot ([facility]) Eusebio Vivar MD [address] [place] [address] Or P4 [address] [place] [address] Referral ID Status Reason Start Date Expiration Date Visits Re quested Visits Authorized [id number] 1 1 Encounter Details Date Type Department Care Team (Latest Contact Info) Description 12/07/2023 3:48 PM CDT - 12/14/2023 12:38 PM CDT Hospital Encounter [facility] Orthopaedic [address] [facility] G3.220 [place], [place] [id number] Eusebio Vivar MD [address] [place] [phone] Mirta Urena MD [address] [place] [address] [id number] Suzy Shafer PA-C [address] [place] [address] [id number] Igor Glover MD [address] [phone] Clint Barber MD [address] [place] [phone] Other acute osteomyelitis of left foot ([facility]) Discharge Disposition: Discharged/transd to home (care by [...] [facility] HOSPITAL COURSE BY PROBLEM: Acute osteomyelitis of [...] 12/12 - discussed with PharmD. HTN: Continue DIRECT CHILL CASTING OPERATOR amlodipine. Hyperlipidemia: Continue DIRECT CHILL CASTING OPERATOR rosuvastatin. Tobacco use disorder: Continue NRT. Hx of TBI. Malnutrition Weight: (!) 139.9 kg (308 lb 6.8 oz) Wt Change from Previous: 0 Kg Wt Change from Admit: 0 Kg % Wt Change from Adm: 0 % Blachly Body Wt (IBW) Male (kg): 75.3 kg [...] Comments: Fax to Dr. Aretha Damon at [phone] PANEL HEPATIC FUNCTION Standing Status: Future Standing Exp. Date: 03/13/24 Order Comments: Fax to Dr. Aretha Damon at [phone] Scheduling Instructions: Hepatic Function Panel includes: Albumin, Alk Phos, ALT, AST, Direct Bilirubin, Total Bilirubin and Total Protein C-REACTIVE PROTEIN Standing Status: Future Standing Exp. Date: 03/13/24 Order Comments: Fax to Dr. Aretha Damon at [phone] CREATININE, SERUM Standing Status: Future Standing Exp. Date: 03/13/24 Order Comments: Fax to Dr. Aretha Damon at [phone] Referral to Physical Therapy Referral Priority: Routine [...] of plan of care? Yes Okay for Retirement Facility standing orders? Order Specific Question Answer Comments OK for Retirement Facility house standing orders? Yes Give Mantoux [...] hesitate to call the Hyperbaric Department at [phone] during clinic hours or page system consultant staff with any updates, questions, or [...] is medically ready for discharge back to [facility] since 12/11. Spoke to Tabatha at [facility] today ([phone]) who reported that the patient was not [...] () of patient departure: 12/13/2023 @1530 Destination: [facility] [employer] [place], [place] Type of ride: wheelchair Transportation vendor of ride: [facility] [phone] * If this ride needs to be [...] Clinical Coordinators will be informed via a TelThe Personal Bee page. PCS form was completed in Progress [...] infection Attending provider: Igor Glover MD Insurance: [facility] Secondary insurance: [place] [employer] Height: Height: 180.3 cm (5' [...] hesitate to call the Hyperbaric Department at [phone] during clinic hours or page system consultant staff with any updates, questions, or [...] 12/12 - discussed with PharmD. HTN: Continue DIRECT CHILL CASTING OPERATOR amlodipine. Hyperlipidemia: Continue DIRECT CHILL CASTING OPERATOR rosuvastatin. Tobacco use disorder: Continue NRT. Hx of TBI. FEN: Regular consistent carb diet. Code status: Full code. VTE prophylaxis: VTE prophylaxis with lovenox to start 12/10. Lines: No central line. No mujica. Discharge planning: Discharg to [facility] in [place] when they're able to accept him back.Possibly [...] Discharge Goals: Patient's Discharge Goal: back to [facility] Discharge Goal: n/a Discharge Destination Expected [...] Selected Services Address Phone Fax Patient Preferred [facility] Pending - No Request Sent N/A [address] [facility] [phone] -- Narcisa Tobar LGSW, 12/12/2023 9:50 AM * Aretha Damon MD - 12/12/2023 8:53 AM CDT ID PROGRESS NOTE Stephanie Low 1980 male [id number] ASSESSMENT: MRSA left foot osteomyelitis S/p I&D [...] 12/12 - discussed with PharmD. HTN: Continue DIRECT CHILL CASTING OPERATOR amlodipine. Hyperlipidemia: Continue DIRECT CHILL CASTING OPERATOR rosuvastatin. Tobacco use disorder: Continue NRT. Hx of TBI. FEN: Regular consistent carb diet. Code status: Full code. VTE prophylaxis: VTE prophylaxis with lovenox to start 12/10. Lines: No central line. No mujica. Discharge planning: Discharg to [facility] in [place] when they're able to accept him back.Possibly [...] Glover MD, 12/11/2023 7:34 PM Page via marker.to * Eusebio Perez, PharmD - 12/11/2023 3:38 [...] recent) Eusebio Perez, Jaxon 12/11/2023 19:22 Pager: (ProBueno) * Lizbeth Cavazos LICSW - 12/11/2023 2:41 PM CDT Weekend Inpatient Social Work Note Summary: Weekend SW paged by bedside RN to help facilitate coordination back to TCU today. GARY called [facility] and left a voicemail. Many barriers are at play for a weekend return - patient hasIV antibiotics, he is recommended to receive 20 HBO sessions (1st today), and has [facility] Medicare Advantage (which requires prior authorization). GARY advised this likely cannot be resolved during the weekend due to the barriers listed above. Follow up needed: GARY will try to problem solve if [facility] calls back, if not weekday team to follow up on plan for discharge. RAJ Cadena, PLACIDO Inpatient Car Supplier - Casual (weekends only) Available via [employer] [employer] Lizbeth Cavazos LICSW, 12/11/2023 2:41 PM Addendum [...] hesitate to call the Hyperbaric Department at [phone] during clinic hours or page system consultant staff with any updates, questions, or [...] Schizophrenia History of TBI --Patient is own [facility] RECOMMENDATIONS: 1. Dressing: Dressed with [...] continue to follow while admitted. Please page system consultant resident with questions. Patient was discussed with system consultant staff Interval history: Patient seen and evaluated [...] 12/12 - discussed with PharmD. HTN: Continue DIRECT CHILL CASTING OPERATOR amlodipine. Hyperlipidemia: Continue DIRECT CHILL CASTING OPERATOR rosuvastatin. Tobacco use disorder: Continue NRT. Hx of TBI. FEN: Regular consistent carb diet. Code status: Full code. VTE prophylaxis: VTE prophylaxis with lovenox to start 12/10. Lines: No central line. No mujica. Discharge planning: Discharged to [facility] on 11/24 after admission for Demar's [...] Glover MD, 12/10/2023 2:18 PM Page via marker.to * Denise Esteves RN - 12/10/2023 11:57 AM CDT Clinical Coordinator Note: 12/10/23 1156 Rapid Rounds Attendance Physician;Charge nurse;manager transition;optical goods worker;Bedside nurse Expected Discharge Disposition SNF Today [...] to discharge. Denise Esteves Inpatient Clinical Coordinator [facility] Office: [phone] * Suzy Patino DPM - 12/10/2023 8:42 [...] Schizophrenia History of TBI --Patient is own [facility] RECOMMENDATIONS: 1. Dressing: Dressed in [...] continue to follow while admitted. Please page system consultant resident with questions. Patient was discussed with system consultant staff Interval history: Patient seen resting comfortably [...] 12/12 - discussed with PharmD. HTN: Continue DIRECT CHILL CASTING OPERATOR amlodipine. Hyperlipidemia: Continue DIRECT CHILL CASTING OPERATOR rosuvastatin. Tobacco use disorder: Continue NRT. Hx of TBI. FEN: Regular consistent carb diet. Code status: Full code. VTE prophylaxis: VTE prophylaxis with hep to start 12/08. Lines: No central line. No mujica. Discharge planning: Discharged to [facility] on 11/24 after admission for Demar's [...] Glover MD, 12/09/2023 10:33 PM Page via marker.to * David Mancuso, PharmD - 12/09/2023 3:54 [...] 12/09/2023 Expected DC Date: 12/10/2023 Social Information Business Management Manager Used: None needed Decision Maker at Admission: Self Living Situation: penitentiary (see comment) Patient Identified Support System: sister, significant other Services Receiving: Waivered services (see comment) Complex Medical Needs: Other (see comment) (wound care) Transportation Used for Discharge: stretcher Safety Concerns: None Behavioral Health Concerns: None Patient Family Goals Patient's Discharge Goal: back to [facility] Family's Discharge Goal: n/a Plan/Interventions Expected Discharge Disposition: Retirement Facility Patient Information Verification Verified demographic information, including SSN, Next of Kin, and Guardianship: Yes Verified PCP: Yes If post-acute placement is needed, have vaccination status needs been addressed?: Not applicable Risks for Readmission: None Summary of pertinent information: [facility] with concern for a left great to osteomyelitis that was resected 12/07. 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 Have a call out to [facility] to confirm bed hold ([phone]). Spoke to staff at his [facility] ([place] [phone]) to also update and confirm that he can return there when ultimately. Patient currently has started on HBO, this may be problematic with returning to [facility]. Emily Hannah RN, 12/09/2023 1:49 PM * [...] Schizophrenia History of TBI --Patient is own [facility] RECOMMENDATIONS: 1. Dressing: Dressed with [...] continue to follow while inpatient Please page system consultant resident with questions. Patient was discussed with system consultant staff Interval history: Patient seen and evaluated [...] Schizophrenia History of TBI --Patient is own [facility] RECOMMENDATIONS: 1. Dressing: Dressed in [...] continue to follow while inpatient Please page system consultant resident with questions. Patient was seen with system consultant staff, Dr. Palomo Interval history: Patient is [...] 1446 for Other acute osteomyelitis of leftfoot ([facility]) . Patient: alert, oriented to person, [...] informed of Patient Valuables and Belongings Policy (#500258): Policy reviewed - patient/family/designee has indicated that [...] 12/12 - discussed with PharmD. HTN: Continue DIRECT CHILL CASTING OPERATOR amlodipine. Hyperlipidemia: Continue DIRECT CHILL CASTING OPERATOR rosuvastatin. Tobacco use disorder: Continue NRT. Hx of TBI. FEN: Regular consistent carb diet. Code status: Full code. VTE prophylaxis: VTE prophylaxis with hep to start 12/08. Lines: No central line. No mujica. 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 [...] -F/up cultures currently in process -NPO at NC, holding VTE ppx -AM BMP, CBC, CRP, ESR Chronic / Stable / Resolved / Ruled Out #T2DM: A1c 6.8% 07/2023. Reduce DIRECT CHILL CASTING OPERATOR lantus to 15 U while NPO, Novolog 1U/CHO + LDSSI. Rechecking A1c. #HTN: DIRECT CHILL CASTING OPERATOR amlodipine 10 mg daily #HLD: DIRECT CHILL CASTING OPERATOR statin #Paranoid schizophrenia: DIRECT CHILL CASTING OPERATOR prazosin #HILL: DIRECT CHILL CASTING OPERATOR escitalopram 20 mg daily #Tobacco use disorder: [...] including pre-visit review of separately obtained history, [id number] interaction performing medically appropriate physical exam, patientcounseling/education, [...] surgery and sign off. Pt was at [facility] 11/09 to 11/24 for [...] wound healing. Message sent to primary team. [facility] Nursing follow up: Appreciate the [...] identified. WOCN available Wednesday through Wednesday on Scyron or [phone] [facility] Nursing attempts to see patients [...] on service at PharmD General Weekend Days ([employer]) or [phone]. If no response within needed timeframe, please contact central pharmacy via phone at [phone]. Planned discharge medications are: Medication List Medications [...] NEW CONSULT NOTE Stephanie Low 1980 male [id number] REASON FOR CONSULT: I was asked to [...] Prior to recent hospitalization pt lived at [facility] with elevator. Was independent with mobility SUBJECTIVE [...] bearing restrictions, otherwise bed to chair only DIRECT CHILL CASTING OPERATOR Appropriate: No (more OR) Participated in goal setting and treatment planning: Patient Agrees with goals and treatment plan: Question patient's ability to understand. Gracia Arredondo, PT 12/10/2023 Pager: Pro[facility] PT Department * David Cortes MD - 12/09/2023 9:58 AM CDT Images from the original note were not included. [facility] HYPERBARIC MEDICINE CONSULTATION Referring [...] old poorly controlled DMII male referred to [facility] Hyperbaric medical team for [...] sex Other acute osteomyelitis of left foot ([facility]) Past Surgical History: Procedure Laterality Date [...] not hesitate to call the department at [phone] during clinic hours ([phone]) or page the system consultant HYPERBARIC staff with any questions or concerns. [...] allowing us to participate in Stephanie Low [facility]. [place] [facility]: [phone]. David Cortes MD * Angela Cardenas CWOCN - 12/08/2023 3:00 PM CDTAssociated Order(s): CONSULT TO WOUND NURSE Images from the original note were not included. [facility] Nursing consulted by nursing for perineal wounds. Pt was at [facility] 11/09 to 11/24 for [...] wound healing. Message sent to primary team. [facility] Nursing follow up: later this week after surgery sees Staff to continue to follow skin injury bundle. Escalate concerns to WOCN through additional consult or to the provider when barriers are identified. WOCN available Wednesday through Wednesday on Scyron or [phone] [facility] Nursing attempts to see patients [...] Schizophrenia History of TBI --Patient is own [facility] RECOMMENDATIONS: 1. Dressing: Daily dressing [...] continue to follow while inpatient Please page system consultant resident with questions. Patient was seen with system consultant staff, Dr. Palomo CHIEF COMPLAINT: Left foot [...] 11/17/2023 Procedure: AMPUTATION, TOE; Laterality: Left; Surgeon: hCe Palomo DPM; Service: PodiatricSurgery WOUND IRRIGATION AND [...] OR Date: 12/10/2023 Surgeon: Suzy Patino DPM Pulmonary Fellow(s): Samina Singletary DPM PGY3 Pre-Op Diagnosis: Packed [...] 1980 Sex: male Surgeon: Che Palomo DPM Pulmonary Fellow(s): Niraj Lewis DPM PGY-3 Jf Sky MS-4 [...] 2023 2242 Started nicotine gum PRN Started DIRECT CHILL CASTING OPERATOR glargine and lispro The patient remained in the emergency department through the end of my shift. Their care was signedout [id number] with the oncoming provider. Dx, DDx, Assessment and Plan was discussed with Attending Emergency Medicine Physician. Final Clinical Impression 1. Other acute osteomyelitis of left foot ([facility]) Disposition and Plan Signed out to [...] in real time. Please contact me via [employer] staff message if you note any errors [...] PM CDT Emergency Department Physician Note [facility] HISTORY Stephanie Low is a [...] 1. Other acute osteomyelitis of left foot ([facility]) DISPOSITION & PLAN Patient remained in [...] Toe Head to Toe Assessment Shift Summary [id number] Alert and oriented x3, unsure of the [...] Physical Therapy Inpatient Discharge Summary Stephanie Low [id number] Diagnosis Patient Active Problem List Diagnosis Fourniers [...] to Toe Assessment Shift Summary Shift Summary [id number] Pt alert oriented and able to make [...] Toe Head to Toe Assessment Shift Summary [id number] Daily dressing change done per order, reported [...] Toe Head to Toe Assessment Shift Summary [id number] Alert and oriented x 4, able to [...] Toe Head to Toe Assessment Shift Summary [id number] Patient is alert and oriented x 4,RA.Vitals [...] amputation RLE - amputation Comments: R amputation DIRECT CHILL CASTING OPERATOR Integumentary Assessment Within Defined Limits except for: [...] Toe Head to Toe Assessment Shift Summary [id number] Patient is alert and oriented x 4,RA.Vitals [...] 12/10/2023 6:30 PM PGY-1 Green Surgery Pager: [phone] * Nursing Assessment - May Torres RN [...] DPM - 12/10/2023 11:[address] [facility] Immediate Post Operative Note Note [...] Toe Head to Toe Assessment Shift Summary [id number] Alert and oriented x3, unsure of the [...] Head to Toe Assessment Shift Summary Night [id number] PT is AO x4. Able to make [...] Dennis RN - 12/08/2023 2:28 PM CDTSummary: SPRAY DRIERdesign transferrer PACU to IP Nursing Handoff Note [...] Comments: RN: Cheryl Dennis RN Extension #: [id number] * Op Note Immediate - Niraj Lewis DPM - 12/08/2023 7:[address] [facility] Immediate Post Operative Note Note [...] 1. Other acute osteomyelitis of left foot ([facility]) Eusebio Vivar MD, 12/08/2023 12:16 AM * Interval Note Provider - Shayna Schreiber MD - 12/07/2023 8:53 PM CDT Handoff Communication Note for Hospital Admission Verbal handoff received from Dr. Drummond in [facility]. Patient Class: Inpatient Cardiac Monitoring: Not needed [...] designation above. Please page the MOD via TelThe Personal Bee with clinical updates or status changes. Note [...] CDT Other acute osteomyelitis of left foot ([facility]) REVISION, AMPUTATION SITE, LOWER EXTREMITY Urgent [...] POC Glucose 255(H) 70 - 100 mg/dL [facility] POINT OF CARE Blood 12/14/2023 11:2 9 AM CDT Eusebio Vivar MD LABORATORY Performing Organization Address [facility] de Phone Number [facility] [address] [phone], [place] * (ABNORMAL) POC GLUCOSE (12/14/2023 6:32 AM CDT) POC Glucose 186(H) 70 - 100 mg/dL [facility] POINT OF [facility] Blood 12/14/2023 6:32 AM CDT Eusebio Vivar MD LABORATORY Performing Organization Address [facility] de Phone Number [facility] [address] [place] [address], [place] * (ABNORMAL) POC GLUCOSE (12/13/2023 9:05 PM CDT) POC Glucose 175(H) 70 - 100 mg/dL [facility] Blood 12/13/2023 9:05 PM CDT Eusebio Vivar MD LABORATORY Performing Organization Address [facility] de Phone Number [facility] POINT [facility] [address] [phone], [place] * VANCOMYCIN LEVEL (12/13/2023 5:24 PM CDT) Vancomycin 17.0 mcg/mL [facility] LAB Comment:Expected Range (Trou gh): 10-20 mcg/ml Blood 12/13/2023 5:24 PM CDT 12/13/2023 5:46 PM CDT Narrative [facility] LAB - 12/13/2023 6:34 PM CDT Please ensure trough level drawn prior to next vancomycin dose. Thank you Peak or trough:->Trough Eusebio J Ana PharmD LABORATORY [facility] LAB [facility] [address] [place] [address] * (ABNORMAL) POC GLUCOSE (12/13/2023 4:00 PM CDT) POC Glucose 153(H) 70 - 100 mg/dL [facility] POINT OF CARE Blood 12/13/2023 4:00 PM CDT Eusebio Vivar MD LABORATORY Performing Organization Address City/[facility]/ZIP Co de Phone Number [facility] POINT OF CARE [address] [place] [address], [place] * (ABNORMAL) POC GLUCOSE (12/13/2023 11:47 AM CDT) POC Glucose 271(H) 70 - 100 mg/dL [facility] POINT OF CARE Blood 12/13/2023 11:4 7 AM CDT Eusebio Vivar MD LABORATORY Performing Organization Address [facility] Co de Phone Number [facility] POINT [facility] [address] [place] [address], [place] * (ABNORMAL) POC GLUCOSE (12/13/2023 6:35 AM CDT) POC Glucose 204(H) 70 - 100 mg/dL [facility] POINT OF CARE Blood 12/13/2023 6:35 AM CDT Eusebio Vivar MD LABORATORY Performing Organization Address City/[facility] Co de Phone Number [facility] POINT OF CARE [address] [place] [address], [place] * (ABNORMAL) POC GLUCOSE (12/12/2023 8:54 PM CDT) POC Glucose 170(H) 70 - 100 mg/dL [facility] POINT OF CARE Blood 12/12/2023 8:54 PM CDT Eusebio Vivar MD LABORATORY [facility] POINT OF CARE [address] [place] [address], [place] * (ABNORMAL) POC GLUCOSE (12/12/2023 4:10 PM CDT) POC Glucose 252(H) 70 - 100 mg/dL [facility] - POINT OF CARE Blood 12/12/2023 4:10 PM CDT Eusebio Vivar MD LABORATORY Performing Organization Address City/[facility]/ZIP Co de Phone Number [facility] POINT OF CARE [address] [place] [address], [place] * (ABNORMAL) POC GLUCOSE (12/12/2023 11:07 AM CDT) POC Glucose 200(H) 70 - 100 mg/dL [facility] POINT OF CARE Blood 12/12/2023 11:0 7 AM CDT Eusebio Vivar MD LABORATORY Performing Organization Address [facility] Co de Phone Number [facility] POINT [facility] [address] [place] [address], [place] * (ABNORMAL) POC GLUCOSE (12/12/2023 6:42 AM CDT) POC Glucose 185(H) 70 - 100 mg/dL [facility] POINT OF CARE Blood 12/12/2023 6:42 AM CDT Eusebio Vivar MD LABORATORY Performing Organization Address City/[facility]/ZIP Co de Phone Number [facility] POINT OF CARE [address] [place] [address], [place] * (ABNORMAL) POC GLUCOSE (12/11/2023 9:10 PM CDT) POC Glucose 226(H) 70 - 100 mg/dL [facility] - POINT OF CARE Blood 12/11/2023 9:10 PM CDT Eusebio Vivar MD LABORATORY [facility] - POINT OF CARE [address] [place] [address], * VANCOMYCIN LEVEL (12/11/2023 5:28 PM CDT) Vancomycin 19.6 mcg/mL [facility] LAB Comment:Expected Range (Trou gh): 10-20 mcg/ml Blood 12/11/2023 5:28 PM CDT 12/11/2023 5:37 PM CDT Narrative [facility] LAB - 12/11/2023 6:46 PM CDT Peak or trough:->Trough Igor Glover MD LABORATORY [facility] [address] [place] [address] * (ABNORMAL) POC GLUCOSE (12/11/2023 4:13 PM CDT) POC Glucose 173(H) 70 - 100 mg/dL [facility] Blood 12/11/2023 4:13 PM CDT Eusebio Vivar MD LABORATORY Performing Organization Address City/[facility]/ZIP Co de Phone Number [facility] [address] [place] [address], [place] * (ABNORMAL) POC GLUCOSE (12/11/2023 11:43 AM CDT) POC Glucose 283(H) 70 - 100 mg/dL [facility] Blood 12/11/2023 11:4 3 AM CDT Eusebio Vivar MD LABORATORY [facility] [address] [place] [address], [place] * (ABNORMAL) POC GLUCOSE (12/11/2023 10:28 AM CDT) POC Glucose 198(H) 70 - 100 mg/dL [facility] Blood 12/11/2023 10:2 8 AM CDT Eusebio Vivar MD LABORATORY Performing Organization Address [facility] Co de Phone Number [facility] [address] [place], [place] [address], * (ABNORMAL) POC GLUCOSE (12/11/2023 6:41 AM CDT) [facility] POC Glucose 173(H) 70 - 100 mg/dL [facility] Blood 12/11/2023 6:41 AM CDT Eusebio Vivar MD LABORATORY Performing Organization Address [facility] de Phone Number [facility] POINT OF [facility] [address] [place], [place] [address], [place] * (ABNORMAL) CBC WITH PLTS/AUTO DIFF (12/11/2023 5:50 AM CDT) [facility] WBC 8.72 4.00 - 10.00 k/cmm [facility] RBC 3.82(L) 4.60 - 6.00 m/cmm [facility] Hgb 10.6(L) 13.1 - 17.5 g/dL [facility] Hematocrit 32.4(L) 40.0 - 51.0 % [facility] MCV 84.8 80.0 - 100.0 fL [facility] MCH 27.7 25.0 - 32.0 pg [facility] MCHC 32.7 31.0 - 36.0 g/dL [facility] RDW 13.5 11.5 - 14.5 % [facility] Plt 400 150 - 400 k/cmm [facility] MPV 9.3 6.5 - 12.5 fL [facility] Automated Abs Neutrophil 4.22 1.70 - 6.50 k/cmm [facility] Comment:Preliminary ANC, Fin al Result to Follow Abs Immature Granulocyte 0.09 0.00 - 0.09 k/cmm [facility] Comment:The Immature Granulo cyte Absolute count contains metamyelocytes and myelocytes. Abs Neutrophil 4.22 1.70 - 6.50 k/cmm [facility] Abs Lymphocyte 2.59 0.80 - 4.00 k/cmm [facility] Abs Monocyte 1.00 0.20 - 1.00 k/cmm [facility] Abs Eosinophil 0.79(H) 0.00 - 0.60 k/cmm [facility] Abs Basophil 0.03 0.00 - 0.20 k/cmm [facility] Blood 12/11/2023 5:50 AM CDT 12/11/2023 6:26 AM CDT Igor Glover MD LABORATORY Performing Organization Address City/[facility]/ZIP Co de Phone Number [facility] [address] [address] * (ABNORMAL) PANEL BASIC METABOLIC (BMP) (12/11/2023 5:50 AM CDT) CO2 25 22 - 30 mmol/L [facility] Glucose 178(H) 70 - 100 mg/dL [facility] BUN 9 6 - 20 mg/dL [facility] Creatinine 0.92 0.70 - 1.25 mg/dL [facility] Calcium 9.0 8.6 - 10.0 mg/dL [facility] Sodium 136 135 - 148 mmol/L [facility] Potassium 4.1 3.5 - 5.3 mmol/L [facility] Chloride 100 92 - 108 mmol/L [facility] eGFR (2020 CKD-EPI) 105 >=60 ml/min/1.7 3m2 [facility] Comment: The estimated glomerular filtration rate (eGFR) was calculated using the CKD-EPI 2020 creatinine equation, which does not include race as a factor. This equation is validated in individuals 18 years of age and older, and eGFR is normalized to a body surface area of 1.73m^2. AnGap 11 8 - 16 mmol/L [facility] Blood 12/11/2023 5:50 AM CDT 12/11/2023 6:25 AM CDT Igor Glover MD LABORATORY Performing Organization Address City/[facility]/ZIP Co de Phone Number [facility] [address] [address] * (ABNORMAL) POC GLUCOSE (12/10/2023 9:03 PM CDT) POC Glucose 206(H) 70 - 100 mg/dL [facility] CARE Blood 12/10/2023 9:03 PM CDT Eusebio Vivar MD LABORATORY Performing Organization Address [facility] de Phone Number [facility] [address] [place] [address], [place] * (ABNORMAL) POC GLUCOSE (12/10/2023 4:16 PM CDT) POC Glucose 341(H) 70 - 100 mg/dL [facility]ARE Blood 12/10/2023 4:16 PM CDT Eusebio Vivar MD LABORATORY Performing Organization Address [facility] de Phone Number [facility] POINT OF [facility] [address] [place] [address], [place] * XR CHEST 2 VIEWS PA [...] POC Glucose 194(H) 70 - 100 mg/dL [facility] Blood 12/10/2023 12:0 9 PM CDT Eusebio Vivar MD LABORATORY [facility] [address] [place] [address], * SURGICAL PATHOLOGY (12/10/2023 11:07 AM CDT) SURG PATH FINAL ?Surgical Pathology Report Collection Date: ?12/10/2023 11:07 CDT ? Ordering Physician: ? SUZY PATINO Received Date: ?12/10/2023 12:07 CDT ? Accession Number: ? [id number] ? Surgical Pathology Final Report Specimen Type: [...] Regalado M.D. Attending Pathologist. DDB/DDB 12.10.2023 13:39 [facility] AP Specimen FOOT STRUCTURE / Unknown 12/10/2023 11:07 AM CDT Comment:OR: Routine gross an d microscopic examination Tissue: 1st metatarsel left foot, cut margin Site: foot Additional clinical information: Suzy Patino DPM LAB PATHOLOGY [facility] [address] [place] [address] * (ABNORMAL) POC GLUCOSE (12/10/2023 6:16 AM CDT) POC Glucose 228(H) 70 - 100 mg/dL [facility] Blood 12/10/2023 6:16 AM CDT Eusebio Vivar MD LABORATORY [facility] [address] [place] [address], * (ABNORMAL) CBC WITH PLTS/AUTO DIFF (12/10/2023 5:06 AM CDT) Pathologist [facility] WBC 8.35 4.00 - 10.00 k/cmm [facility] RBC 3.81(L) 4.60 - 6.00 m/cmm [facility] Hgb 10.3(L) 13.1 - 17.5 g/dL [facility] Hematocrit 32.5(L) 40.0 - 51.0 % [facility] MCV 85.3 80.0 - 100.0 fL [facility] MCH 27.0 25.0 - 32.0 pg [facility] MCHC 31.7 31.0 - 36.0 g/dL [facility] RDW 13.4 11.5 - 14.5 % [facility] Plt 377 150 - 400 k/cmm [facility] MPV 9.4 6.5 - 12.5 fL [facility] Automated Abs Neutrophil 4.14 1.70 - 6.50 k/cmm [facility] Comment:Preliminary ANC, Fin al Result to Follow Abs Immature Granulocyte 0.08 0.00 - 0.09 k/cmm [facility] Comment:The Immature Granulo cyte Absolute count contains metamyelocytes and myelocytes. Abs Neutrophil 4.14 1.70 - 6.50 k/cmm [facility] Abs Lymphocyte 2.39 0.80 - 4.00 k/cmm [facility] Abs Monocyte 1.06(H) 0.20 - 1.00 k/cmm [facility] Abs Eosinophil 0.64(H) 0.00 - 0.60 k/cmm [facility] Abs Basophil 0.04 0.00 - 0.20 k/cmm [facility] Blood 12/10/2023 5:06 AM CDT 12/10/2023 5:40 AM CDT Igor Glover MD LABORATORY Performing Organization Address [facility] Co de Phone Number [facility] [address] [address] * (ABNORMAL) PANEL BASIC METABOLIC (BMP) (12/10/2023 5:06 AM CDT) CO2 26 22 - 30 mmol/L [facility] Glucose 204(H) 70 - 100 mg/dL [facility] BUN 11 6 - 20 mg/dL [facility] Creatinine 0.92 0.70 - 1.25 mg/dL [facility] Calcium 9.0 8.6 - 10.0 mg/dL [facility] Sodium 137 135 - 148 mmol/L [facility] Potassium 4.2 3.5 - 5.3 mmol/L [facility] Chloride 101 92 - 108 mmol/L [facility] eGFR (2020 CKD-EPI) 105 >=60 ml/min/1.7 3m2 [facility] Comment: The estimated glomerular filtration rate (eGFR) was calculated using the CKD-EPI 2020 creatinine equation, which does not include race as a factor. This equation is validated in individuals 18 years of age and older, and eGFR is normalized to a body surface area of 1.73m^2. AnGap 10 8 - 16 mmol/L [facility] Blood 12/10/2023 5:06 AM CDT 12/10/2023 5:40 AM CDT Igor Glover MD LABORATORY Performing Organization Address [facility] Co de Phone Number [facility] [address] [address] * (ABNORMAL) POC GLUCOSE (12/09/2023 9:18 PM CDT) POC Glucose 204(H) 70 - 100 mg/dL [facility] Blood 12/09/2023 9:18 PM CDT Eusebio Vivar MD LABORATORY Performing Organization Address [facility] Co de Phone Number [facility]ARE [address] [place] [address], * (ABNORMAL) PANEL BASIC METABOLIC (BMP) (12/09/2023 5:56 PM CDT) Sodium 134(L) 135 - 148 mmol/L [facility] Potassium 4.2 3.5 - 5.3 mmol/L [facility] Chloride 99 92 - 108 mmol/L [facility] CO2 23 22 - 30 mmol/L [facility] AnGap 12 8 - 16 mmol/L [facility] Glucose 246(H) 70 - 100 mg/dL [facility] BUN 13 6 - 20 mg/dL [facility] Creatinine 0.98 0.70 - 1.25 mg/dL [facility] Calcium 8.8 8.6 - 10.0 mg/dL [facility] eGFR (2020 CKD-EPI) 97 >=60 ml/min/1.7 3m2 [facility] Comment: The estimated [...] Igor Glover MD LABORATORY Performing Organization Address City/[facility]/ZIP Co de Phone Number [facility] [address] [address] * VANCOMYCIN LEVEL (12/09/2023 5:56 PM CDT) Vancomycin 22.0 mcg/mL [facility] Comment:Expected Range (Trou gh): 10-20 mcg/ml Blood 12/09/2023 5:56 PM CDT 12/09/2023 6:26 PM CDT Narrative [facility] - 12/09/2023 8:14 PM CDT Peak or trough:->Trough Gwen Gamez PharmD LABORATORY Performing Organization Address [facility] Co de Phone Number [facility] [address] [place] [address] * (ABNORMAL) POC GLUCOSE (12/09/2023 4:08 PM CDT) POC Glucose 231(H) 70 - 100 mg/dL [facility] POINT OF [facility] Blood 12/09/2023 4:08 PM CDT Eusebio Vivar MD LABORATORY Performing Organization Address [facility] de Phone Number [address] [address], [place] * (ABNORMAL) POC GLUCOSE (12/09/2023 11:13 AM CDT) POC Glucose 282(H) 70 - 100 mg/dL [facility] Blood 12/09/2023 11:1 3 AM CDT Eusebio Vivar MD LABORATORY Performing Organization Address [facility] de Phone Number [address] [address], [place] * HBO TCO2 MEASUREMENT COMPLETE (12/09/2023 [...] Reg 2002; 10:198-207. Bridget QUIÑONEZ et al. [facility] 2009, Vol. 36(1). ? [place] 07/27/13 Suzy [...] 198(H) 70 - 100 mg/dL [facility] Blood 12/09/2023 6:43 AM CDT Eusebio Vivar MD LABORATORY Performing Organization Address [facility] Co de Phone Number [facility] [address] [place] [address], * (ABNORMAL) POC GLUCOSE (12/08/2023 9:10 PM CDT) POC Glucose 268(H) 70 - 100 mg/dL [facility] Blood 12/08/2023 9:10 PM CDT Eusebio Vivar MD LABORATORY Performing Organization Address [facility] Co de Phone Number [facility] [address] [place] [address], * (ABNORMAL) SED RATE (ESR) (12/08/2023 4:47 PM CDT) Sed Rate 120(H) 2 - 10 mm/hr [facility] Blood 12/08/2023 4:47 PM CDT 12/08/2023 5:07 PM CDT Suzy Shafer PA-C LABORATORY Performing Organization Address [facility]/ZIP Co de Phone Number [facility] [address] [address] * (ABNORMAL) PANEL BASIC METABOLIC (BMP) (12/08/2023 4:47 PM CDT) Sodium 134(L) 135 - 148 mmol/L [facility] Potassium 4.0 3.5 - 5.3 mmol/L [facility] Chloride 98 92 - 108 mmol/L [facility] CO2 24 22 - 30 mmol/L [facility] AnGap 12 8 - 16 mmol/L [facility] Glucose 247(H) 70 - 100 mg/dL [facility] BUN 16 6 - 20 mg/dL [facility] Creatinine 0.98 0.70 - 1.25 mg/dL [facility] Calcium 8.7 8.6 - 10.0 mg/dL [facility] eGFR (2020 CKD-EPI) 97 >=60 ml/min/1.7 3m2 [facility] Comment: The estimated [...] Suzy Shafer PA-C LABORATORY Performing Organization Address [facility]/ZIP Co de Phone Number [facility] [address] [address] * (ABNORMAL) GLYCOSYLATED HGB - A1C (12/08/2023 4:47 PM CDT) Hemoglobin A1C 8.5(H) 4.0 - 5.6 % [facility] Comment: Increased risk [...] Estimated Average Glucose 197(H) 68 - 114 [facility] Comment: The estimated Average Glucose (eAG) was calculated using an equation derived from a study of 507 adults with type 1, type 2, or no diabetes. Minority populations were underrepresented and children were not included. The eAG is not equivalent to a fasting glucose concentration. Blood 12/08/2023 4:47 PM CDT 12/08/2023 5:07 PM CDT Narrative [facility] - 12/08/2023 6:01 PM CDT If not done in the last 30 days. Suzy Shafer PA-C LABORATORY [facility] [address] [address] * (ABNORMAL) CBC WITH PLATELET (12/08/2023 4:47 PM CDT) WBC 10.39(H) 4.00 - 10.00 k/cmm [facility] RBC 3.59(L) 4.60 - 6.00 m/cmm [facility] Hgb 9.8(L) 13.1 - 17.5 g/dL [facility] Hematocrit 30.8(L) 40.0 - 51.0 % [facility] MCV 85.8 80.0 - 100.0 fL [facility] MCH 27.3 25.0 - 32.0 pg [facility] MCHC 31.8 31.0 - 36.0 g/dL [facility] RDW 13.5 11.5 - 14.5 % [facility] Plt 314 150 - 400 k/cmm [facility] MPV 9.3 6.5 - 12.5 fL [facility] Blood 12/08/2023 4:47 PM CDT 12/08/2023 5:07 PM CDT Suzy Shafer PA-C LABORATORY Performing Organization Address City/[facility]/ZIP Co de Phone Number [address] [address] * (ABNORMAL) C-REACTIVE PROTEIN (12/08/2023 4:47 PM CDT) C-Reactive Protein 77(H) <=4 mg/L [facility] Blood 12/08/2023 4:47 PM CDT 12/08/2023 5:07 PM CDT Suzy Shafer PA-C LABORATORY Performing Organization Address [facility] Co de Phone Number [place] [phone] * (ABNORMAL) POC GLUCOSE (12/08/2023 4:20 PM CDT) POC Glucose 204(H) 70 - 100 mg/dL [facility] Blood 12/08/2023 4:20 PM CDT Eusebio Vivar MD LABORATORY Performing Organization Address City/[facility] Co de Phone Number [facility] [place] [phone], [place] * (ABNORMAL) POC GLUCOSE (12/08/2023 12:35 PM CDT) POC Glucose 227(H) 70 - 100 mg/dL [facility] Blood 12/08/2023 12:3 5 PM CDT Eusebio Vivar MD LABORATORY Performing Organization Address City/[facility]/ZIP Co de Phone Number [facility] [address] [place] [address], [place] * (ABNORMAL) POC GLUCOSE (12/08/2023 10:02 AM CDT) POC Glucose 263(H) 70 - 100 mg/dL [facility] Blood 12/08/2023 10:0 2 AM CDT Eusebio Vivar MD LABORATORY [facility] [address] [place] [address], * XR FOOT LEFT 3 V AP/OBL/LAT* [...] POC Glucose 214(H) 70 - 100 mg/dL [facility] Blood 12/08/2023 8:32 AM CDT Eusebio Vivar MD LABORATORY [facility] [address] [place] [address], * SURGICAL PATHOLOGY (12/08/2023 7:56 AM CDT) SURG PATH FINAL ?Surgical Pathology Report Collection Date: ?12/08/2023 07:56 CDT ?Ordering Physician: ? CHE PALOMO Received Date: ?12/08/2023 08:41 CDT ?Accession Number: ? [id number] ? Surgical Pathology Final Report Specimen Type: [...] specimen reveals a yellow, trabeculated cut surface. Physician Surgeon sections are submitted following decalcification as follows: A1: Resection margin, en face A2: Full cross-section of metatarsal head (DDB) DDB/DDB 12.08.2023 9:52 Microscopic Description: Microscopic examination performed and findings are reflected in the final diagnosis. I personally examined the relevant preparations and rendered and confirmed the diagnosis. ? Signed - Tootie Mackenzie M.D. Attending Pathologist. DDB/DDB 12.08.2023 9:52 [facility] AP Specimen FOOT STRUCTURE / Unknown 12/08/2023 7:56 AM CDT Comment:OR: Routine gross an d microscopic examination Tissue: Left first metatarsal head Site: left foot Additional clinical information: evaluate cut side for osteomyelitis Che Palomo [facility] PATHOLOGY Performing Organization Address [facility] de Phone Number [address] [address] * FUNGUS CULTURE:INCLUDES SUHAS (12/08/2023 7:51 AM CDT) Final Report No fungus isolated. [facility] SUHAS Prep No fungal elements seen. [facility] Bone STRUCTURE OF LEFT FOOT / Unknown 12/08/2023 7:51 AM CDT 12/08/2023 9:00 AM CDT Comment:2. Bone first metata rsal left foot Che Palomo [facility] MICROBIOLOGY Performing Organization Address [facility] Co de Phone Number [address] [address] * ANAEROBE CULTURE (12/08/2023 7:51 AM CDT) Final Report No anaerobes isolated. [facility] Bone STRUCTURE OF LEFT FOOT / Unknown 12/08/2023 7:51 AM CDT 12/08/2023 9:00 AM CDT Comment:2. Bone first metata rsal left foot Che L Beth [facility] MICROBIOLOGY Performing Organization Address [facility] Co de Phone Number [facility] [address] [address] * (ABNORMAL) TISSUE CULTURE:INCLUDES GRAM STAIN (12/08/2023 7:51 AM CDT) Final Report Positive Culture Few METHICILLIN RESISTANT Staphylococcus aureus (MRSA) isolated. 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 For susceptibility, see previous report on culture from wound culture collected 12/07/23. (POS) [facility] Organism METHICILLIN RESISTANT STAPHYLOCOCCUS AUREUS (MRSA)(POS) [facility] Gram Stain Report Corrected Report Positive Gram stain Rare PMN's seen. Rare gram positive cocci. Gram stain electronically reported to and acknowledged by: Dr. Healy Marker from OR at ??12/08/2023 10:09:09 by Jacklyn Easley MLS. Removed Pleomorphic gram variable bacilli from report. Results electronically reported to and acknowledged by: Dr. Igor Glover [facility] 12/09/2023 12:48:27. Elizabeth Schwartz MLS. (POS) [facility] Bone STRUCTURE OF LEFT FOOT / Unknown 12/08/2023 7:51 AM CDT 12/08/2023 9:00 AM CDT Comment:2. Bone first metata rsal left foot Che Palomo DP LAB MICROBIOLOGY Performing Organization Address [facility] Co de Phone Number [facility] [address] [address] * (ABNORMAL) TISSUE CULTURE:INCLUDES GRAM STAIN (12/08/2023 7:51 AM CDT) Final Report Positive Culture Few METHICILLIN RESISTANT Staphylococcus aureus (MRSA) isolated. 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 For susceptibility, see previous report on culture from wound culture collected 12/07/23. Rare Corynebacterium striatum group isolated. A member of the diphtheroid bacilli. (POS) [facility] Organism METHICILLIN RESISTANT STAPHYLOCOCCUS AUREUS (MRSA)(POS) [facility] Organism CORYNEBACTERIUM STRIATUM GROUP(POS) [facility] Gram Stain Report Positive Gram stain Rare PMN's seen. Rare gram positive cocci. Gram stain electronically reported to and acknowledged by: Dr. Healy Marker from OR at ??12/08/2023 10:09:09 by Jacklyn Easley MLS. (POS) [facility] Tissue FOOT STRUCTURE / Unknown 12/08/2023 7:51 AM CDT Comment:Add Aerobic Narrative [facility] - 12/10/2023 2:22 PM CDT Add Aerobic Che Mullent DPM LAB MICROBIOLOGY Performing Organization Address [facility] de Phone Number [address] [address] * FUNGUS CULTURE:INCLUDES SUHAS (12/08/2023 7:51 AM CDT) Final Report No fungus isolated. [facility] SUHAS Prep No fungal elements seen. [facility] Tissue FOOT STRUCTURE / Unknown 12/08/2023 7:51 AM CDT Comment:Add Aerobic Narrative [facility] - 01/05/2024 8:10 AM CDT Add Aerobic Chekatelin Mullent DPM LAB MICROBIOLOGY Performing Organization Address [facility] [facility] de Phone Number [facility] [address] [address] * ANAEROBE CULTURE (12/08/2023 7:51 AM CDT) Final Report No anaerobes isolated. [facility] Tissue FOOT STRUCTURE / Unknown 12/08/2023 7:51 AM CDT Comment:Add Aerobic Narrative [facility] - 12/14/2023 9:06 AM CDT Add Aerobic Che L Beth DPM LAB MICROBIOLOGY Performing Organization Address [facility]/State/ZIP Co de Phone Number [facility] [address] [address] * (ABNORMAL) POC GLUCOSE (12/08/2023 7:22 AM CDT) [facility] POC Glucose 236(H) 70 - 100 mg/dL [facility] POINT OF CARE Blood 12/08/2023 7:22 AM CDT Eusebio Vivar MD LABORATORY Performing Organization Address City/[facility]/ZIP Co de Phone Number [facility] POINT OF CARE [address] [place] [phone], * EXTRA TUBE - BLUE (12/07/2023 4:05 PM CDT) Pathologist [facility] BLUE TUBE [facility] Comment:Blue top(Sodium citr ate) tubes are kept for 3 days from the collection date. Blood 12/07/2023 4:05 PM CDT 12/07/2023 4:24 PM CDT Eusebio Vivar MD LABORATORY Performing Organization Address [facility] Co de Phone Number [facility] [address] [address] * EXTRA TUBE - DARK GREEN (12/07/2023 4:05 PM CDT) [facility] DARK GREEN TUBE Stored [facility] Comment:Dark Green tubes (Li thium Heparin) are stored in the lab for 1 day from the collection date. Blood 12/07/2023 4:05 PM CDT 12/07/2023 4:24 PM CDT Eusebio Vivar MD LABORATORY Performing Organization Address [facility] Co de Phone Number [facility] [address] [address] * (ABNORMAL) ED CHEMISTRY LABS(NA,K,CL,CO2,GLU,CREAT,CA-IONIZED,ANION GAP) (12/07/2023 4:05 PM CDT) [facility] Sodium 139 135 - 148 mmol/L [facility] Chloride 97 92 - 108 mmol/L [facility] AnGap 15 8 - 16 mmol/L [facility] Glucose 284(H) 70 - 100 mg/dL [facility] ICA, Actual 4.89 4.40 - 5.20 mg/dL [facility] ICA, pH Corrected 4.74 4.40 - 5.20 mg/dL [facility] Creatinine 1.26(H) 0.70 - 1.25 mg/dL [facility] BICARB 26 22 - 26 mEq/L [facility] eGFR (2020 CKD-EPI) 72 >=60 ml/min/1.7 3m2 [facility] Comment: The estimated glomerular filtration rate (eGFR) was calculated using the CKD-EPI 2020 creatinine equation, which does not include race as a factor. This equation is validated in individuals 18 years of age and older, and eGFR is normalized to a body surface area of 1.73m^2. Potassium 4.5 3.5 - 5.3 mmol/L [facility] Blood 12/07/2023 4:05 PM CDT 12/07/2023 4:27 PM CDT Eusebio Vivar MD LABORATORY [facility] [address] [place] [phone] * (ABNORMAL) CBC WITH PLTS/AUTO DIFF (12/07/2023 4:05 PM CDT) WBC 9.80 4.00 - 10.00 k/cmm [facility] RBC 4.08(L) 4.60 - 6.00 m/cmm [facility] Hgb 11.2(L) 13.1 - 17.5 g/dL [facility] Hematocrit 34.7(L) 40.0 - 51.0 % [facility] MCV 85.0 80.0 - 100.0 fL [facility] MCH 27.5 25.0 - 32.0 pg [facility] MCHC 32.3 31.0 - 36.0 g/dL [facility] RDW 13.7 11.5 - 14.5 % [facility] Plt 324 150 - 400 k/cmm [facility] MPV 9.4 6.5 - 12.5 fL [facility] Automated Abs Neutrophil 5.37 1.70 - 6.50 k/cmm [facility] Comment:Preliminary ANC, Fin al Result to Follow Abs Immature Granulocyte 0.12(H) 0.00 - 0.09 k/cmm [facility] Comment:The Immature Granulo cyte Absolute count contains metamyelocytes and myelocytes. Abs Neutrophil 5.37 1.70 - 6.50 k/cmm [facility] Abs Lymphocyte 2.61 0.80 - 4.00 k/cmm [facility] Abs Monocyte 1.32(H) 0.20 - 1.00 k/cmm [facility] Abs Eosinophil 0.34 0.00 - 0.60 k/cmm [facility] Abs Basophil 0.04 0.00 - 0.20 k/cmm [facility] Blood 12/07/2023 4:05 PM CDT 12/07/2023 4:51 PM CDT Eusebio Vivar MD LABORATORY Performing Organization Address City/[facility] Co de Phone Number [address] [address] * LACTATE (LACTIC ACID) (12/07/2023 4:05 PM CDT) Pathologist [facility] Lactate 2.1 0.7 - 2.1 mmol/L [facility] Blood 12/07/2023 4:05 PM CDT 12/07/2023 4:27 PM CDT Narrative [facility] - 12/07/2023 4:27 PM CDT Send specimen on ice! Eusebio Vivar MD LABORATORY [address] [address] * (ABNORMAL) C-REACTIVE PROTEIN (12/07/2023 4:05 PM CDT) C-Reactive Protein 82(H) <=4 mg/L [facility] Blood 12/07/2023 4:05 PM CDT 12/07/2023 4:51 PM CDT Eusebio Vivar MD LABORATORY Performing Organization Address [facility] Co de Phone Number [facility] [address] [address] * (ABNORMAL) SED RATE (ESR) (12/07/2023 4:05 PM CDT) Sed Rate 120(H) 2 - 10 mm/hr [facility] Blood 12/07/2023 4:05 PM CDT 12/07/2023 4:51 PM CDT Eusebio Vivar MD LABORATORY Performing Organization Address [facility] Co de Phone Number [address] [address] * BLOOD AEROBIC/ANAEROBIC CULTURE (12/07/2023 4:05 PM CDT) Final Report No growth after 5 days. [facility] Blood (Peripheral) 12/07/2023 4:05 PM CDT 12/07/2023 7:55 PM CDT Eusebio Vivar MD LAB MICROBIOLOGY Performing Organization Address [facility] de Phone Number [address] [address] documented in this encounter Visit Diagnoses Diagnosis [...] - Comment: HBO)[phone] (Dual Sign-Off - Provider: Natsaha Vivar RN)1010 (Given - Provider: Natasha Vivar [...] (Due: Patch removed - Provider: JENNIFER NARAYANAN, [facility] - Comment: Time automatically adjusted from [...]
--- OUTSIDE RECORDS SUMMARY | 2024-02-28 09:07 | XMS_ITS | Encounter Summary ---
Author Organization [facility] Address [address] [place] [phone] Phone Care Team Providers Care Union Organiser Name Role Phone Unavailable Primary Care Provider Unavailabl e Reason for Visit * Auth/Cert (Routine) Specialty Diagnoses / Procedures Referred By Katherine tidwell Referred To Contact SURGERY Diagnoses Other acute osteomyelitis of left foot ([facility]) Eusebio Vivar MD [address] [place] [phone] Or P4 [address] [place] [phone] Referral ID Status Reason Start Date Expiration Date Visits Re quested Visits Authorized [id number] 1 1 Encounter Details Date Type Department Care Team (Late st Contact Info) Description 12/10/2023 10:39 AM CDT Anesthesia Event OR P4 [address] [place] [address] [phone] Clint White MD [address] [place] [address] [phone] Carly Jordan MD [address] [place] [address] [phone] Anesthesia Record Procedure Summary Procedure Name Responsible [...] [facility] type: General () Patient [...] GI - negative ROS Hematologic/Onc (+) anemia /Renal/Toll Line Mechanic - negative ROS Airway Mallampati: II TM distance: >3 FB Neck ROM: full Mouth Opening: good Dental - normal exam OB Other Physical Exam Anesthesia Plan ASA 2 MAC Post-op Care: routine analgesia Anesthetic plan and risks discussed with patient. Plan discussed with CHIEF OPERATOR. Vitals: 12/10/23 0700 BP: 145/69 Pulse: 72 [...]
--- OUTSIDE RECORDS SUMMARY | 2024-02-28 09:07 | XMS_ITS | Encounter Summary ---
Author Organization [facility] Address [address] [place] [address] Phone Care Team Providers Care Marketing And Development Coordinator Name Role Phone Unavailable Primary Care Provider Unavailabl e Reason for Visit * Auth/Cert (Routine) Specialty Diagnoses / Procedures Referred By Katherine tidwell Referred To Contact SURGERY Diagnoses Other acute osteomyelitis of left foot ([facility]) Eusebio Vivar MD [address] [place] [address] Or P4 [address] [place] [address] Referral ID Status Reason Start Date Expiration Date Visits Re quested Visits Authorized [id number] 1 1 Encounter Details Date Type Department Care Team (Late st Contact Info) Description 12/10/2023 9:49 AM CDT - 12/10/2023 11:34 AM CDT Surgery OR P4 [address] [place] [address] Suzy Patino DPM [address] [phone] REVISION, AMPUTATION SITE, POSSIBLE PARTIAL FOOT AMPUTATION, [...] 12/12 - discussed with PharmD. HTN: Continue HEALTHCARE INTERPRETER amlodipine. Hyperlipidemia: Continue HEALTHCARE INTERPRETER rosuvastatin. Tobacco use disorder: Continue NRT. Hx of TBI. Malnutrition Weight: (!) 139.9 kg (308 lb 6.8 oz) Wt Change from Previous: 0 Kg Wt Change from Admit: 0 Kg % Wt Change from Adm: 0 % [place] Body Wt (IBW) Male (kg): 75.3 kg [...] Comments: Fax to Dr. Aretha Damon at [phone] PANEL HEPATIC FUNCTION Standing Status: Future Standing Exp. Date: 03/13/24 Order Comments: Fax to Dr. Aretha Damon at [phone] Scheduling Instructions: Hepatic Function Panel includes: Albumin, Alk Phos, ALT, AST, Direct Bilirubin, Total Bilirubin and Total Protein C-REACTIVE PROTEIN Standing Status: Future Standing Exp. Date: 03/13/24 Order Comments: Fax to Dr. Aretha Damon at [phone] CREATININE, SERUM Standing Status: Future Standing Exp. Date: 03/13/24 Order Comments: Fax to Dr. Aretha Damon at [phone] Referral to Physical Therapy Referral Priority: Routine [...] in comments! Resume previous standing orders per fdc policy Order Comments: Resume previous standing orders per fdc policy Scheduling Instructions: Please specify in comments! [...] equipment/supplies recommended: None Final discharge destination: Subacute fdc with rehab care R: The patient and [...] hesitate to call the Hyperbaric Department at [phone] during clinic hours or page personal caregiver staff with any updates, questions, or concerns. [...] recent) Eusebio Perez PharmD 12/13/2023 21:07 Pager: ([facility]) * Emily Hannah RN - 12/13/2023 1:07 PM CDTSummary: Discharge planning Clinical Coordinator Update Patient is medically ready for discharge back to [facility]- since 12/11. Spoke to Tabatha at [facility] today ([phone]) who reported that the patient was not [...] () of patient departure: 12/13/2023 @1530 Destination: [address] [place] [address] Type of ride: wheelchair Transportation vendor of ride: [facility] [phone] * If this ride needs to be [...] Clinical Coordinators will be informed via a [employer] page. PCS form was completed in Progress [...] infection Attending provider: Igor Glover MD Insurance: [facility] Secondary insurance: [place] [employer] Height: Height: 180.3 cm (5' [...] hesitate to call the Hyperbaric Department at [phone] during clinic hours or page personal caregiver staff with any updates, questions, or concerns. [...] 12/12 - discussed with PharmD. HTN: Continue HEALTHCARE INTERPRETER amlodipine. Hyperlipidemia: Continue HEALTHCARE INTERPRETER rosuvastatin. Tobacco use disorder: Continue NRT. Hx of TBI. FEN: Regular consistent carb diet. Code status: Full code. VTE prophylaxis: VTE prophylaxis with lovenox to start 12/10. Lines: No central line. No mujica. Discharge planning: Discharg to [facility] in [place] when they're able to accept him back.Possibly [...] Glover MD, 12/12/2023 2:02 PM Page via [employer] * Narcisa Tobar BUSGIRL - 12/12/2023 9:50 AM CDT . Care Management Follow-up Note Patient Name: Stephanie Low Date: 12/12/2023 Patient/Family Discharge Goals: Patient's Discharge Goal: back to [facility] Discharge Goal: n/a Discharge Destination Expected Discharge [...] Preferred [facility] Pending - No Request Sent N/A [id number] [id number] -- Narcisa Tobar LGSW, 12/12/2023 9:50 AM * Aretha Damon MD - 12/12/2023 8:53 AM CDT ID PROGRESS NOTE Stephanie Low 1980 male [id number] ASSESSMENT: MRSA left foot osteomyelitis S/p I&D [...] 12/12 - discussed with PharmD. HTN: Continue HEALTHCARE INTERPRETER amlodipine. Hyperlipidemia: Continue HEALTHCARE INTERPRETER rosuvastatin. Tobacco use disorder: Continue NRT. Hx of TBI. FEN: Regular consistent carb diet. Code status: Full code. VTE prophylaxis: VTE prophylaxis with lovenox to start 12/10. Lines: No central line. No mujica. Discharge planning: Discharg to [facility] in [place] when they're able to accept him back.Possibly [...] Glover MD, 12/11/2023 7:34 PM Page via [employer] * Eusebio Perez, PharmD - 12/11/2023 3:38 [...] recent) Eusebio Perez PharmD 12/11/2023 19:22 Pager: ([facility]) * Lizbeth Cavazos LICSW - 12/11/2023 2:41 PM CDT Weekend Inpatient Social Work Note Summary: Weekend SW paged by bedside RN to help facilitate coordination back to TCU today. GARY called Cruz Aguiar and left a voicemail. Many barriers are at play for a weekend return - patient hasIV antibiotics, he is recommended to receive 20 HBO sessions (1st today), and has [facility] Medicare Advantage (which requires prior authorization). GARY advised this likely cannot be resolved during the weekend due to the barriers listed above. Follow up needed: GARY will try to problem solve if Cruz Aguiar calls back, if not weekday team to follow up on plan for discharge. RAJ Cadena LICSW Inpatient Real Estate Office Supervisor - Casual (weekends only) Available via [employer] Lizbeth Cavazos LICSW, 12/11/2023 2:41 PM Addendum 1530: GARY received update from attending physician sharing [...] hesitate to call the Hyperbaric Department at [phone] during clinic hours or page personal caregiver staff with any updates, questions, or concerns. [...] Schizophrenia History of TBI --Patient is own [facility] RECOMMENDATIONS: 1. Dressing: Dressed with Betadine [...] continue to follow while admitted. Please page personal caregiver resident with questions. Patient was discussed with personal caregiver staff Interval history: Patient seen and evaluated [...] 12/12 - discussed with PharmD. HTN: Continue HEALTHCARE INTERPRETER amlodipine. Hyperlipidemia: Continue HEALTHCARE INTERPRETER rosuvastatin. Tobacco use disorder: Continue NRT. Hx of TBI. FEN: Regular consistent carb diet. Code status: Full code. VTE prophylaxis: VTE prophylaxis with lovenox to start 12/10. Lines: No central line. No mujica. 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 Denise Esteves Inpatient Clinical Coordinator [facility] Office: [phone] * Suzy Patino DPM - 12/10/2023 8:42 [...] Schizophrenia History of TBI --Patient is own [facility] RECOMMENDATIONS: 1. Dressing: Dressed in OR [...] continue to follow while admitted. Please page personal caregiver resident with questions. Patient was discussed with personal caregiver staff Interval history: Patient seen resting comfortably [...] 12/12 - discussed with PharmD. HTN: Continue HEALTHCARE INTERPRETER amlodipine. Hyperlipidemia: Continue HEALTHCARE INTERPRETER rosuvastatin. Tobacco use disorder: Continue NRT. Hx of TBI. FEN: Regular consistent carb diet. Code status: Full code. VTE prophylaxis: VTE prophylaxis with hep to start 12/08. Lines: No central line. No mujica. 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 [...] Glover MD, 12/09/2023 10:33 PM Page via [employer] * David Mancuso, PharmD - 12/09/2023 3:54 [...] 12/09/2023 Expected DC Date: 12/10/2023 Social Information Purchasing Specialist Used: None needed Decision Maker at Admission: Self Living Situation: long term (see comment) Patient Identified Support System: sister, significant other Services Receiving: Waivered services (see comment) Complex Medical Needs: Other (see comment) (wound care) Transportation Used for Discharge: stretcher Safety Concerns: None Behavioral Health Concerns: None Patient Family Goals Patient's Discharge Goal: back to [facility] Family's Discharge Goal: n/a Plan/Interventions Expected Discharge [...] demar's gangrene. Have a call out to [facility] to confirm bed hold ([phone]). Spoke to staff at his [facility] (Minnie [phone]) to also update and confirm that he can return there when ultimately. Patient currently has started on HBO, this may be problematic with returning to [facility]. Emily Hannah RN, 12/09/2023 1:49 PM * [...] Schizophrenia History of TBI --Patient is own [facility] RECOMMENDATIONS: 1. Dressing: Dressed with Vashe [...] continue to follow while inpatient Please page personal caregiver resident with questions. Patient was discussed with personal caregiver staff Interval history: Patient seen and evaluated [...] Schizophrenia History of TBI --Patient is own [facility] RECOMMENDATIONS: 1. Dressing: Dressed in operating [...] continue to follow while inpatient Please page personal caregiver resident with questions. Patient was seen with personal caregiver staff, Dr. Palomo Interval history: Patient is [...] male D: Stephanie Low was admitted to [address] from PACU at 1446 for Other acute osteomyelitis of leftfoot ([facility]) . Patient: alert, oriented to person, place [...] informed of Patient Valuables and Belongings Policy (#[id number]): Policy reviewed - patient/family/designee has indicated that [...] 12/12 - discussed with PharmD. HTN: Continue HEALTHCARE INTERPRETER amlodipine. Hyperlipidemia: Continue HEALTHCARE INTERPRETER rosuvastatin. Tobacco use disorder: Continue NRT. Hx of TBI. FEN: Regular consistent carb diet. Code status: Full code. VTE prophylaxis: VTE prophylaxis with hep to start 12/08. Lines: No central line. No mujica. 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 [...] -F/up cultures currently in process -NPO at CT, holding VTE ppx -AM BMP, CBC, CRP, ESR Chronic / Stable / Resolved / Ruled Out #T2DM: A1c 6.8% 07/2023. Reduce HEALTHCARE INTERPRETER lantus to 15 U while NPO, Novolog 1U/CHO + LDSSI. Rechecking A1c. #HTN: HEALTHCARE INTERPRETER amlodipine 10 mg daily #HLD: HEALTHCARE INTERPRETER statin #Paranoid schizophrenia: HEALTHCARE INTERPRETER prazosin #HILL: HEALTHCARE INTERPRETER escitalopram 20 mg daily #Tobacco use disorder: [...] including pre-visit review of separately obtained history, rozi-qj-qgvr interaction performing medically appropriate physical exam, patientcounseling/education, [...] from the original note were not included. [facility] follow up: Green Surgery has made recommendations. [facility] will defer to surgery and sign off. 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 Discharge [...] wound healing. Message sent to primary team. [facility] Nursing follow up: Appreciate the opportunity to consult on this patient, Wound Ostomy Continence Services will sign off at this time. Please place additional 'Wound Consult' if wanting further assessment for this patient. Staff to continue to follow skin injury bundle. Escalate concerns to WOCN through additional consult or to the provider when barriers are identified. WOCN available Wednesday through Wednesday on Neighborhoods or [phone] [facility] Nursing attempts to see patients in person when possible, but will at times complete a chart/media review in order to recommend wound treatment in a timely manner. Please reconsult [facility] if wound condition changes or the [...] on service at PharmD General Weekend Days ([employer]) or [phone]. If no response within needed timeframe, please contact central pharmacy via phone at [phone]. Planned discharge medications are: Medication List Medications [...] NEW CONSULT NOTE Stephanie Low 1980 male [id number] REASON FOR CONSULT: I was asked to [...] bearing restrictions, otherwise bed to chair only HEALTHCARE INTERPRETER Appropriate: No (more OR) Participated in goal setting and treatment planning: Patient Agrees with goals and treatment plan: Question patient's ability to understand. Gracia Arredondo, PT 12/10/2023 Pager: [facility] PT Department * David Cortes MD - 12/09/2023 9:58 AM CDT Images from the original note were not included. [facility] HYPERBARIC MEDICINE CONSULTATION Referring clinician: Che Palomo [...] old poorly controlled DMII male referred to [facility] Hyperbaric medical team for consultation regarding concern [...] 11/17/2023 Procedure: AMPUTATION, TOE; Laterality: Left; Surgeon: Ceh Palomo DPM; Service: PodiatricSurgery WOUND IRRIGATION AND [...] Hyperbaric Medicine to become a part of [facility] care. Please do not hesitate to call the department at [phone] during clinic hours ([phone]) or page the personal caregiver HYPERBARIC staff with any questions or concerns. [...] you for allowing us to participate in [facility] care. [facility] for Hyperbaric Medicine: [phone]. Dvaid Cortes MD * Angela Cardenas CWOCN - 12/08/2023 3:00 PM CDTAssociated Order(s): CONSULT TO WOUND NURSE Images from the original note were not included. [facility] Nursing consulted by nursing for perineal wounds. 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 Discharge [...] wound healing. Message sent to primary team. [facility] Nursing follow up: later this week after surgery sees Staff to continue to follow skin injury bundle. Escalate concerns to WOCN through additional consult or to the provider when barriers are identified. WOCN available Wednesday through Wednesday on Neighborhoods or [phone] [facility] Nursing attempts to see patients in [...] continue to follow while inpatient Please page personal caregiver resident with questions. Patient was seen with personal caregiver staff, Dr. Palomo CHIEF COMPLAINT: Left foot [...] OR Date: 12/10/2023 Surgeon: Suzy Patino DPM Weatherization Field Technician(s): Samina Singletary DPM PGY3 Pre-Op Diagnosis: [...] 1980 Sex: male Surgeon: Che Palomo DPM Weatherization Field Technician(s): Niraj Lewis DPM PGY-3 Jf Sky, MS-4 [...] 2023 2242 Started nicotine gum PRN Started HEALTHCARE INTERPRETER glargine and lispro The patient remained in the emergency department through the end of my shift. Their care was signedout [id number] with the oncoming provider. Dx, DDx, Assessment and Plan was discussed with Attending Emergency Medicine Physician. Final Clinical Impression 1. Other acute osteomyelitis of left foot ([facility]) Disposition and Plan Signed out to oncoming [...] in real time. Please contact me via [employer] staff message if you note any errors requiring clarification. * Farida Beyer RN - 12/07/2023 7:41 PM CDT Assumed care of pt. SNF director here as pt was reported missing when he did not return back from the clinic. Plan for admission with OR tomorrow. NPO at midnight, pt aware. * Allyssa Drummond MD - 12/07/2023 4:25 PM CDT Emergency Department Physician Note [facility] HISTORY Stephanie Low is a 43 [...] 1. Other acute osteomyelitis of left foot ([facility]) DISPOSITION & PLAN Patient remained in the [...] Toe Head to Toe Assessment Shift Summary [id number] Alert and oriented x3, unsure of the [...] Physical Therapy Inpatient Discharge Summary Stephanie Low [id number] Diagnosis Patient Active Problem List Diagnosis Fourniers [...] to Toe Assessment Shift Summary Shift Summary [id number] Pt alert oriented and able to make [...] Toe Head to Toe Assessment Shift Summary [id number] Daily dressing change done per order, reported [...] Toe Head to Toe Assessment Shift Summary [id number] Alert and oriented x 4, able to [...] Toe Head to Toe Assessment Shift Summary [id number] Patient is alert and oriented x 4,RA.Vitals [...] amputation RLE - amputation Comments: R amputation HEALTHCARE INTERPRETER Integumentary Assessment Within Defined Limits except for: [...] Toe Head to Toe Assessment Shift Summary [id number] Patient is alert and oriented x 4,RA.Vitals [...] 12/10/2023 6:30 PM PGY-1 [facility] Pager: [phone] * Nursing Assessment - May Torres RN [...] Singletary DPM - 12/10/2023 11:06 AM CDT [facility] Immediate Post Operative Note Note written: [...] Toe Head to Toe Assessment Shift Summary [id number] Alert and oriented x3, unsure of the [...] Head to Toe Assessment Shift Summary Night [id number] PT is AO x4. Able to make [...] Dennis RN - 12/08/2023 2:28 PM CDTSummary: WORKERS' COMPENSATION HEARINGS OFFICERtransfer and pumphouse operator PACU to IP Nursing Handoff Note S [...] Comments: RN: Cheryl Dennis RN Extension #: [id number] * Op Note Immediate - Niraj Lewis DPM - 12/08/2023 7:48 AM CDT [facility] Immediate Post Operative Note Note written: [...] 1. Other acute osteomyelitis of left foot ([facility]) Eusebio Vivar MD, 12/08/2023 12:16 AM * Interval Note Provider - Shayna Schreiber MD - 12/07/2023 8:53 PM CDT Handoff Communication Note for Hospital Admission Verbal handoff received from Dr. Drummond in [facility]. Patient Class: Inpatient Cardiac Monitoring: Not needed [...] CDT Other acute osteomyelitis of left foot ([facility]) REVISION, AMPUTATION SITE, LOWER EXTREMITY Urgent (< [...] CDT Other acute osteomyelitis of left foot ([facility]) PC CULTURE,BACTERIAL,D EFINITIVE,AEROBIC ANY SOURCE Routine 12/08/2023 7:51 AM CDT PC CULTURE,BACTERIAL,D EFINITIVE,AEROBIC ANY SOURCE Routine 12/08/2023 7:51 AM CDT Other acute osteomyelitis of left foot ([facility]) PC CULTURE FUNGI ISOLATION W-WO PRESUMPTIVE ID SKIN OTH Routine 12/08/2023 7:51 AM CDT PC CULTURE FUNGI ISOLATION W-WO PRESUMPTIVE ID SKIN OTH Routine 12/08/2023 7:51 AM CDT Other acute osteomyelitis of left foot ([facility]) PC CULTURE SPECIMEN, ANAEROBIC Routine 12/08/2023 7:51 AM CDT PC CULTURE SPECIMEN, ANAEROBIC Routine 12/08/2023 7:51 AM CDT Other acute osteomyelitis of left foot ([facility]) POC GLUCOSE Routine 12/08/2023 7:22 AM CDT [...] POC Glucose 255(H) 70 - 100 mg/dL [facility] Blood 12/14/2023 11:2 9 AM CDT Eusebio iVvar MD LABORATORY [facility]ARE [address] [place] [address], * (ABNORMAL) POC GLUCOSE (12/14/2023 6:32 AM CDT) POC Glucose 186(H) 70 - 100 mg/dL [facility] POINT OF CARE Blood 12/14/2023 6:32 AM CDT Eusebio Vivar MD LABORATORY Performing Organization Address [facility] de Phone Number [facility] [place] [address], * (ABNORMAL) POC GLUCOSE (12/13/2023 9:05 PM CDT) POC Glucose 175(H) 70 - 100 mg/dL [facility] Blood 12/13/2023 9:05 PM CDT Eusebio Vivar MD LABORATORY Performing Organization Address [facility] [place] [address], * VANCOMYCIN LEVEL (12/13/2023 5:24 PM CDT) Vancomycin 17.0 mcg/mL [facility] Comment:Expected Range (Trou gh): 10-20 mcg/ml Blood 12/13/2023 5:24 PM CDT 12/13/2023 5:46 PM CDT Narrative [facility] - 12/13/2023 6:34 PM CDT Please ensure trough level drawn prior to next vancomycin dose. Thank you Peak or trough:->Trough Euseibo KolbD LABORATORY Performing Organization Address City/[facility] Co de Phone Number [facility] [address] [address] * (ABNORMAL) POC GLUCOSE (12/13/2023 4:00 PM CDT) POC Glucose 153(H) 70 - 100 mg/dL [facility] POINT OF CARE Blood 12/13/2023 4:00 PM CDT Eusebio Vivar MD LABORATORY [facility] POINT [facility] [address] [place] [address], [place] * (ABNORMAL) POC GLUCOSE (12/13/2023 11:47 AM CDT) POC Glucose 271(H) 70 - 100 mg/dL [facility] POINT OF CARE Blood 12/13/2023 11:4 7 AM CDT Eusebio Vivar MD LABORATORY Performing Organization Address [facility]/ZIP Co de Phone Number [facility] [address] [place] [address], [place] * (ABNORMAL) POC GLUCOSE (12/13/2023 6:35 AM CDT) POC Glucose 204(H) 70 - 100 mg/dL [facility] POINT OF [facility] Blood 12/13/2023 6:35 AM CDT Eusebio Vivar MD LABORATORY Performing Organization Address [facility] Co de Phone Number [facility] [address] [place] [address], [place] * (ABNORMAL) POC GLUCOSE (12/12/2023 8:54 PM CDT) POC Glucose 170(H) 70 - 100 mg/dL [facility] POINT OF CARE Blood 12/12/2023 8:54 PM CDT Eusebio Vivar MD LABORATORY Performing Organization Address City/[facility]/ZIP Co de Phone Number [facility] POINT OF [facility] [address] [place] [address], [place] * (ABNORMAL) POC GLUCOSE (12/12/2023 4:10 PM CDT) POC Glucose 252(H) 70 - 100 mg/dL [facility] POINT OF CARE Blood 12/12/2023 4:10 PM CDT Eusebio Vivar MD LABORATORY Performing Organization Address [facility] Co de Phone Number [facility] [address] [place] [address], [place] * (ABNORMAL) POC GLUCOSE (12/12/2023 11:07 AM CDT) POC Glucose 200(H) 70 - 100 mg/dL [facility] POINT OF [facility] Blood 12/12/2023 11:0 7 AM CDT Eusebio Vivar MD LABORATORY Performing Organization Address [facility] Co de Phone Number [facility] [address] [place] [address], [place] * (ABNORMAL) POC GLUCOSE (12/12/2023 6:42 AM CDT) POC Glucose 185(H) 70 - 100 mg/dL [facility] Blood 12/12/2023 6:42 AM CDT Eusebio Vivar MD LABORATORY Performing Organization Address [facility] de Phone Number [facility] [address] [place] [address], [place] * (ABNORMAL) POC GLUCOSE (12/11/2023 9:10 PM CDT) POC Glucose 226(H) 70 - 100 mg/dL [facility] Blood 12/11/2023 9:10 PM CDT Eusebio Vivar MD LABORATORY Performing Organization Address [facility] Co de Phone Number [facility] [address] [place] [address], [place] * VANCOMYCIN LEVEL (12/11/2023 5:28 PM CDT) Vancomycin 19.6 mcg/mL [facility] Comment:Expected Range (Trou gh): 10-20 mcg/ml Blood 12/11/2023 5:28 PM CDT 12/11/2023 5:37 PM CDT Narrative [facility] - 12/11/2023 6:46 PM CDT Peak or trough:->Trough Igor Glover MD LABORATORY [facility] [address] [place] [address] * (ABNORMAL) POC GLUCOSE (12/11/2023 4:13 PM CDT) POC Glucose 173(H) 70 - 100 mg/dL [facility] Blood 12/11/2023 4:13 PM CDT Eusebio Vivar MD LABORATORY Performing Organization Address City/[facility] Co de Phone Number [facility] POINT OF [place] [id number], [place] * (ABNORMAL) POC GLUCOSE (12/11/2023 11:43 AM CDT) POC Glucose 283(H) 70 - 100 mg/dL [facility] Blood 12/11/2023 11:4 3 AM CDT Eusebio Vivar MD LABORATORY Performing Organization Address City/[facility] Co de Phone Number [facility] POINT OF [place] [address], [place] * (ABNORMAL) POC GLUCOSE (12/11/2023 10:28 AM CDT) POC Glucose 198(H) 70 - 100 mg/dL [facility] CARE Blood 12/11/2023 10:2 8 AM CDT Eusebio Vivar MD LABORATORY Performing Organization Address City/[facility]/ZIP Co de Phone Number [facility] CARE [address] [place], [place] [address], [place] * (ABNORMAL) POC GLUCOSE (12/11/2023 6:41 AM CDT) POC Glucose 173(H) 70 - 100 mg/dL [facility] Blood 12/11/2023 6:41 AM CDT Eusebio Vivar MD LABORATORY [facility] [address] [place] [address], [place] * (ABNORMAL) CBC WITH PLTS/AUTO DIFF (12/11/2023 5:50 AM CDT) Pathologist [facility] WBC 8.72 4.00 - 10.00 k/cmm [facility] RBC 3.82(L) 4.60 - 6.00 m/cmm [facility] Hgb 10.6(L) 13.1 - 17.5 g/dL [facility] Hematocrit 32.4(L) 40.0 - 51.0 % [facility] MCV 84.8 80.0 - 100.0 fL [facility] MCH 27.7 25.0 - 32.0 pg [facility] MCHC 32.7 31.0 - 36.0 g/dL [facility] RDW 13.5 11.5 - 14.5 % [facility] Plt 400 150 - 400 k/cmm [facility] MPV 9.3 6.5 - 12.5 fL [facility] Automated Abs Neutrophil 4.22 1.70 - 6.50 k/cmm [facility] Comment:Preliminary ANC, Fin al Result to Follow Abs Immature Granulocyte 0.09 0.00 - 0.09 k/cmm [facility] Comment:The Immature Granulo cyte Absolute count contains metamyelocytes and myelocytes. Abs Neutrophil 4.22 1.70 - 6.50 k/cmm [facility] Abs Lymphocyte 2.59 0.80 - 4.00 k/cmm [facility] Abs Monocyte 1.00 0.20 - 1.00 k/cmm [facility] Abs Eosinophil 0.79(H) 0.00 - 0.60 k/cmm [facility] Abs Basophil 0.03 0.00 - 0.20 k/cmm [facility] Blood 12/11/2023 5:50 AM CDT 12/11/2023 6:26 AM CDT Igor Glover MD LABORATORY Performing Organization Address [facility] Co de Phone Number [facility] [address] [address] * (ABNORMAL) PANEL BASIC METABOLIC (BMP) (12/11/2023 5:50 AM CDT) CO2 25 22 - 30 mmol/L [facility] Glucose 178(H) 70 - 100 mg/dL [facility] BUN 9 6 - 20 mg/dL [facility] Creatinine 0.92 0.70 - 1.25 mg/dL [facility] Calcium 9.0 8.6 - 10.0 mg/dL [facility] Sodium 136 135 - 148 mmol/L [facility] Potassium 4.1 3.5 - 5.3 mmol/L [facility] Chloride 100 92 - 108 mmol/L [facility] eGFR (2020 CKD-EPI) 105 >=60 ml/min/1.7 3m2 [facility] Comment: The estimated glomerular filtration rate (eGFR) was calculated using the CKD-EPI 2020 creatinine equation, which does not include race as a factor. This equation is validated in individuals 18 years of age and older, and eGFR is normalized to a body surface area of 1.73m^2. AnGap 11 8 - 16 mmol/L [facility] Blood 12/11/2023 5:50 AM CDT 12/11/2023 6:25 AM CDT Igor Glover MD LABORATORY Performing Organization Address [facility] Co de Phone Number [facility] [address] [address] * (ABNORMAL) POC GLUCOSE (12/10/2023 9:03 PM CDT) POC Glucose 206(H) 70 - 100 mg/dL [facility] Blood 12/10/2023 9:03 PM CDT Eusebio Vivar MD LABORATORY [facility] [address] [place] [address], [place] * (ABNORMAL) POC GLUCOSE (12/10/2023 4:16 PM CDT) POC Glucose 341(H) 70 - 100 mg/dL [facility] Blood 12/10/2023 4:16 PM CDT Eusebio Vivar MD LABORATORY [facility] [address] [place] [address], [place] * XR CHEST 2 VIEWS PA [...] POC Glucose 194(H) 70 - 100 mg/dL [facility] Blood 12/10/2023 12:0 9 PM CDT Eusebio Vivar MD LABORATORY [facility] [address] [place] [address], * SURGICAL PATHOLOGY (12/10/2023 11:07 AM CDT) SURG PATH FINAL ?Surgical Pathology Report Collection Date: ?12/10/2023 11:07 CDT ? Ordering Physician: ? SUZY PATINO Received Date: ?12/10/2023 12:07 CDT ? Accession Number: ? [id number] ? Surgical Pathology Final Report Specimen Type: [...] Attending Pathologist. DDB/DDB 12.10.2023 13:39 [facility] AP Specimen FOOT STRUCTURE / Unknown 12/10/2023 11:07 AM CDT Comment:OR: Routine gross an d microscopic examination Tissue: 1st metatarsel left foot, cut margin Site: foot Additional clinical information: Suzy Patino DPM LAB PATHOLOGY [facility] [address] [address] * (ABNORMAL) POC GLUCOSE (12/10/2023 6:16 AM CDT) POC Glucose 228(H) 70 - 100 mg/dL [facility] Blood 12/10/2023 6:16 AM CDT Eusebio Vivar MD LABORATORY [facility] [address] [place] [address], * (ABNORMAL) CBC WITH PLTS/AUTO DIFF (12/10/2023 5:06 AM CDT) WBC 8.35 4.00 - 10.00 k/cmm [facility] RBC 3.81(L) 4.60 - 6.00 m/cmm [facility] Hgb 10.3(L) 13.1 - 17.5 g/dL [facility] Hematocrit 32.5(L) 40.0 - 51.0 % [facility] MCV 85.3 80.0 - 100.0 fL [facility] MCH 27.0 25.0 - 32.0 pg [facility] MCHC 31.7 31.0 - 36.0 g/dL [facility] RDW 13.4 11.5 - 14.5 % [facility] Plt 377 150 - 400 k/cmm [facility] MPV 9.4 6.5 - 12.5 fL [facility] Automated Abs Neutrophil 4.14 1.70 - 6.50 k/cmm [facility] Comment:Preliminary ANC, Fin al Result to Follow Abs Immature Granulocyte 0.08 0.00 - 0.09 k/cmm [facility] Comment:The Immature Granulo cyte Absolute count contains metamyelocytes and myelocytes. Abs Neutrophil 4.14 1.70 - 6.50 k/cmm [facility] Abs Lymphocyte 2.39 0.80 - 4.00 k/cmm [facility] Abs Monocyte 1.06(H) 0.20 - 1.00 k/cmm [facility] Abs Eosinophil 0.64(H) 0.00 - 0.60 k/cmm [facility] Abs Basophil 0.04 0.00 - 0.20 k/cmm [facility] Blood 12/10/2023 5:06 AM CDT 12/10/2023 5:40 AM CDT Igor Glover MD LABORATORY [facility] [address] [address] * (ABNORMAL) PANEL BASIC METABOLIC (BMP) (12/10/2023 5:06 AM CDT) CO2 26 22 - 30 mmol/L [facility] Glucose 204(H) 70 - 100 mg/dL [facility] BUN 11 6 - 20 mg/dL [facility] Creatinine 0.92 0.70 - 1.25 mg/dL [facility] Calcium 9.0 8.6 - 10.0 mg/dL [facility] Sodium 137 135 - 148 mmol/L [facility] Potassium 4.2 3.5 - 5.3 mmol/L [facility] Chloride 101 92 - 108 mmol/L [facility] eGFR (2020 CKD-EPI) 105 >=60 ml/min/1.7 3m2 [facility] Comment: The estimated glomerular filtration rate (eGFR) was calculated using the CKD-EPI 2020 creatinine equation, which does not include race as a factor. This equation is validated in individuals 18 years of age and older, and eGFR is normalized to a body surface area of 1.73m^2. AnGap 10 8 - 16 mmol/L [facility] Blood 12/10/2023 5:06 AM CDT 12/10/2023 5:40 AM CDT Igor Glover MD LABORATORY Performing Organization Address [facility] Co de Phone Number [facility] [address] [address] * (ABNORMAL) POC GLUCOSE (12/09/2023 9:18 PM CDT) POC Glucose 204(H) 70 - 100 mg/dL [facility] Blood 12/09/2023 9:18 PM CDT Eusebio Vivar MD LABORATORY Performing Organization Address [facility]/ZIP Co de Phone Number [facility] [address] [place] [address], * (ABNORMAL) PANEL BASIC METABOLIC (BMP) (12/09/2023 5:56 PM CDT) Sodium 134(L) 135 - 148 mmol/L [facility] Potassium 4.2 3.5 - 5.3 mmol/L [facility] Chloride 99 92 - 108 mmol/L [facility] CO2 23 22 - 30 mmol/L [facility] AnGap 12 8 - 16 mmol/L [facility] Glucose 246(H) 70 - 100 mg/dL [facility] BUN 13 6 - 20 mg/dL [facility] Creatinine 0.98 0.70 - 1.25 mg/dL [facility] Calcium 8.8 8.6 - 10.0 mg/dL [facility] eGFR (2020 CKD-EPI) 97 >=60 ml/min/1.7 3m2 [facility] Comment: The estimated glomerular filtration rate (eGFR) was calculated using the CKD-EPI 2020 creatinine equation, which does not include race as a factor. This equation is validated in individuals 18 years of age and older, and eGFR is normalized to a body surface area of 1.73m^2. Blood 12/09/2023 5:56 PM CDT 12/09/2023 6:26 PM CDT Igor Glover MD LABORATORY Performing Organization Address City/[facility]/ZIP Co de Phone Number [facility] [address] [address] * VANCOMYCIN LEVEL (12/09/2023 5:56 PM CDT) Pathologist [facility] Vancomycin 22.0 mcg/mL [facility] Comment:Expected Range (Trou gh): 10-20 mcg/ml Blood 12/09/2023 5:56 PM CDT 12/09/2023 6:26 PM CDT Narrative [facility] - 12/09/2023 8:14 PM CDT Peak or trough:->Trough Gwen Gamez PharmD LABORATORY [facility] [address] [address] * (ABNORMAL) POC GLUCOSE (12/09/2023 4:08 PM CDT) POC Glucose 231(H) 70 - 100 mg/dL [facility] POINT [facility] CARE Blood 12/09/2023 4:08 PM CDT Eusebio Vivar MD LABORATORY Performing Organization Address [facility] Co de Phone Number [facility] POINT OF [facility] [address] [place] [address], * (ABNORMAL) POC GLUCOSE (12/09/2023 11:13 AM CDT) POC Glucose 282(H) 70 - 100 mg/dL [facility] POINT [facility] CARE Blood 12/09/2023 11:1 3 AM CDT Eusebio Vivar MD LABORATORY Performing Organization Address [facility] de Phone Number [facility] POINT [facility] [address] [place] [address], [place] * HBO TCO2 MEASUREMENT COMPLETE (12/09/2023 [...] al. [facility] 2009, Vol. 36(1). ? [place] 07/27/13 Suzy [...] POC Glucose 198(H) 70 - 100 mg/dL [facility] Blood 12/09/2023 6:43 AM CDT Eusebio Vivar MD LABORATORY Performing Organization Address City/[facility]/ZIP Co de Phone Number [facility] POINT [facility] CARE [address] [place] [address], [place] * (ABNORMAL) POC GLUCOSE (12/08/2023 9:10 PM CDT) Pathologist [facility] POC Glucose 268(H) 70 - 100 mg/dL [facility] Blood 12/08/2023 9:10 PM CDT Eusebio Vivar MD LABORATORY [facility] POINT OF CARE [address] [place] [address], [place] * (ABNORMAL) SED RATE (ESR) (12/08/2023 4:47 PM CDT) Sed Rate 120(H) 2 - 10 mm/hr [facility] Blood 12/08/2023 4:47 PM CDT 12/08/2023 5:07 PM CDT Suzy Shafer PA-C LABORATORY Performing Organization Address [facility] Co de Phone Number [facility] [address] [address] * (ABNORMAL) PANEL BASIC METABOLIC (BMP) (12/08/2023 4:47 PM CDT) Sodium 134(L) 135 - 148 mmol/L [facility] Potassium 4.0 3.5 - 5.3 mmol/L [facility] Chloride 98 92 - 108 mmol/L [facility] CO2 24 22 - 30 mmol/L [facility] AnGap 12 8 - 16 mmol/L [facility] Glucose 247(H) 70 - 100 mg/dL [facility] BUN 16 6 - 20 mg/dL [facility] Creatinine 0.98 0.70 - 1.25 mg/dL [facility] Calcium 8.7 8.6 - 10.0 mg/dL [facility] eGFR (2020 CKD-EPI) 97 >=60 ml/min/1.7 3m2 [facility] Comment: The estimated glomerular filtration rate (eGFR) was calculated using the CKD-EPI 2020 creatinine equation, which does not include race as a factor. This equation is validated in individuals 18 years of age and older, and eGFR is normalized to a body surface area of 1.73m^2. Blood 12/08/2023 4:47 PM CDT 12/08/2023 5:07 PM CDT Suzy Shafer PA-C LABORATORY Performing Organization Address [facility] Co de Phone Number [facility] [address] [address] * (ABNORMAL) GLYCOSYLATED HGB - A1C (12/08/2023 4:47 PM CDT) Hemoglobin A1C 8.5(H) 4.0 - 5.6 % [facility] Comment: Increased risk for diabetes (prediabetes): [...] Glucose 197(H) 68 - 114 [facility] Comment: The estimated Average Glucose (eAG) was calculated using an equation derived from a study of 507 adults with type 1, type 2, or no diabetes. Minority populations were underrepresented and children were not included. The eAG is not equivalent to a fasting glucose concentration. Blood 12/08/2023 4:47 PM CDT 12/08/2023 5:07 PM CDT Narrative [facility] - 12/08/2023 6:01 PM CDT If not done in the last 30 days. Suzy Shafer PA-C LABORATORY Performing Organization Address [facility] Co de Phone Number [facility] [address] [address] * (ABNORMAL) CBC WITH PLATELET (12/08/2023 4:47 PM CDT) WBC 10.39(H) 4.00 - 10.00 k/cmm [facility] RBC 3.59(L) 4.60 - 6.00 m/cmm [facility] Hgb 9.8(L) 13.1 - 17.5 g/dL [facility] Hematocrit 30.8(L) 40.0 - 51.0 % [facility] MCV 85.8 80.0 - 100.0 fL [facility] MCH 27.3 25.0 - 32.0 pg [facility] MCHC 31.8 31.0 - 36.0 g/dL [facility] RDW 13.5 11.5 - 14.5 % [facility] Plt 314 150 - 400 k/cmm [facility] MPV 9.3 6.5 - 12.5 fL [facility] Blood 12/08/2023 4:47 PM CDT 12/08/2023 5:07 PM CDT Suzy Shafer PA-C LABORATORY Performing Organization Address [facility]/ZIP Co de Phone Number [facility] [address] [address] * (ABNORMAL) C-REACTIVE PROTEIN (12/08/2023 4:47 PM CDT) C-Reactive Protein 77(H) <=4 mg/L [facility] Blood 12/08/2023 4:47 PM CDT 12/08/2023 5:07 PM CDT Suzy Shafer PA-C LABORATORY [facility] [address] [place] [address] * (ABNORMAL) POC GLUCOSE (12/08/2023 4:20 PM CDT) POC Glucose 204(H) 70 - 100 mg/dL [facility] Blood 12/08/2023 4:20 PM CDT Eusebio Vivar MD LABORATORY Performing Organization Address City/[facility]/ZIP Co de Phone Number [facility] PO[facility] [address] [place] [address], [place] * (ABNORMAL) POC GLUCOSE (12/08/2023 12:35 PM CDT) POC Glucose 227(H) 70 - 100 mg/dL [facility] POINT [facility] Blood 12/08/2023 12:3 5 PM CDT Eusebio Vivar MD LABORATORY [facility] POINT OF [facility] [address] [place] [address], [place] * (ABNORMAL) POC GLUCOSE (12/08/2023 10:02 AM CDT) POC Glucose 263(H) 70 - 100 mg/dL [facility] POINT OF CARE Blood 12/08/2023 10:0 2 AM CDT Eusebio Vivar MD LABORATORY [facility] [address] [place] [address], [place] * XR FOOT LEFT 3 V [...] present in the midfoot. Procedure Note David Beodya MD - 12/08/2023 Technique: XR FOOT LEFT [...] POC Glucose 214(H) 70 - 100 mg/dL [facility] Blood 12/08/2023 8:32 AM CDT Eusebio Vivar MD LABORATORY [facility] [address] [place] [address], * SURGICAL PATHOLOGY (12/08/2023 7:56 AM CDT) SURG PATH FINAL ?Surgical Pathology Report Collection Date: ?12/08/2023 07:56 CDT ?Ordering Physician: ? CHE PALOMO Received Date: ?12/08/2023 08:41 CDT ?Accession Number: ? [id number] ? Surgical Pathology Final Report Specimen Type: [...] specimen reveals a yellow, trabeculated cut surface. Library Assistant sections are submitted following decalcification as follows: A1: Resection margin, en face A2: Full cross-section of metatarsal head (DDB) DDB/DDB 12.08.2023 9:52 Microscopic Description: Microscopic examination performed and findings are reflected in the final diagnosis. I personally examined the relevant preparations and rendered and confirmed the diagnosis. ? Signed - Tootie Mackenzie M.D. Attending Pathologist. DDB/DDB 12.08.2023 9:52 [facility] AP Specimen FOOT STRUCTURE / Unknown 12/08/2023 7:56 AM CDT Comment:OR: Routine gross an d microscopic examination Tissue: Left first metatarsal head Site: left foot Additional clinical information: evaluate cut side for osteomyelitis Che Palomo [facility] LAB PATHOLOGY Performing Organization Address [facility] de Phone Number [address] [address] * FUNGUS CULTURE:INCLUDES SUHAS (12/08/2023 7:51 AM CDT) Final Report No fungus isolated. [facility] SUHAS Prep No fungal elements seen. [facility] Bone STRUCTURE OF LEFT FOOT / Unknown 12/08/2023 7:51 AM CDT 12/08/2023 9:00 AM CDT Comment:2. Bone first metata rsal left foot Chekatelin Mullent DP LAB MICROBIOLOGY Performing Organization Address [facility] Co de Phone Number [address] [address] * ANAEROBE CULTURE (12/08/2023 7:51 AM CDT) Final Report No anaerobes isolated. [facility] Bone STRUCTURE OF LEFT FOOT / Unknown 12/08/2023 7:51 AM CDT 12/08/2023 9:00 AM CDT Comment:2. Bone first metata rsal left foot Chekatelin Mullent DP LAB MICROBIOLOGY Performing Organization Address [facility] Co de Phone Number [address] [address] * (ABNORMAL) TISSUE CULTURE:INCLUDES GRAM STAIN (12/08/2023 7:51 AM CDT) Final Report Positive Culture Few METHICILLIN RESISTANT Staphylococcus aureus (MRSA) isolated. 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 For susceptibility, see previous report on culture from wound culture collected 12/07/23. (POS) [facility] Organism METHICILLIN RESISTANT STAPHYLOCOCCUS AUREUS (MRSA)(POS) [facility] Gram Stain Report Corrected Report Positive Gram stain Rare PMN's seen. Rare gram positive cocci. Gram stain electronically reported to and acknowledged by: Dr. Niraj Lewis from OR at ??12/08/2023 10:09:09 by Jacklyn Easley MLS. Removed Pleomorphic gram variable bacilli from report. Results electronically reported to and acknowledged by: [facility] [place] 12/09/2023 12:48:27. Elizabeth Schwartz MLS. (POS) [facility] Bone STRUCTURE OF LEFT FOOT / Unknown 12/08/2023 7:51 AM CDT 12/08/2023 9:00 AM CDT Comment:2. Bone first metata rsal left foot Che Palomo [facility] MICROBIOLOGY [facility] [address] [address] * (ABNORMAL) TISSUE CULTURE:INCLUDES GRAM STAIN (12/08/2023 7:51 AM CDT) Final Report Positive Culture Few METHICILLIN RESISTANT Staphylococcus aureus (MRSA) isolated. 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 For susceptibility, see previous report on culture from wound culture collected 12/07/23. Rare Corynebacterium striatum group isolated. A member of the diphtheroid bacilli. (POS) [facility] Organism METHICILLIN RESISTANT STAPHYLOCOCCUS AUREUS (MRSA)(POS) [facility] Organism CORYNEBACTERIUM STRIATUM GROUP(POS) [facility] Gram Stain Report Positive Gram stain Rare PMN's seen. Rare gram positive cocci. Gram stain electronically reported to and acknowledged by: Dr. Niraj Lewis from OR at ??12/08/2023 10:09:09 by Jacklyn Easley MLS. (POS) [facility] Tissue FOOT STRUCTURE / Unknown 12/08/2023 7:51 AM CDT Comment:Add Aerobic Narrative [facility] - 12/10/2023 2:22 PM CDT Add Aerobic Che L Beth DPM LAB MICROBIOLOGY Performing Organization Address [facility] Co de Phone Number [facility] [address] [id number] * FUNGUS CULTURE:INCLUDES SUHAS (12/08/2023 7:51 AM CDT) Final Report No fungus isolated. [facility] SUHAS Prep No fungal elements seen. [facility] Tissue FOOT STRUCTURE / Unknown 12/08/2023 7:51 AM CDT Comment:Add Aerobic Narrative [facility] [facility] - 01/05/2024 8:10 AM CDT Add Aerobic Che L Beth DPM LAB MICROBIOLOGY Performing Organization Address [facility] Co de Phone Number [facility] [address] [address] * ANAEROBE CULTURE (12/08/2023 7:51 AM CDT) Final Report No anaerobes isolated. [facility] Tissue FOOT STRUCTURE / Unknown 12/08/2023 7:51 AM CDT Comment:Add Aerobic Narrative [facility] - 12/14/2023 9:06 AM CDT Add Aerobic Che L Beth DPM LAB MICROBIOLOGY Performing Organization Address [facility] Co de Phone Number [facility] [address] [address] * (ABNORMAL) POC GLUCOSE (12/08/2023 7:22 AM CDT) POC Glucose 236(H) 70 - 100 mg/dL [facility] - POINT OF CARE Blood 12/08/2023 7:22 AM CDT Eusebio Vivar MD LABORATORY Performing Organization Address [facility]/ZIP Co de Phone Number [facility] [place] - POINT OF CARE [address] [place] [address], * EXTRA TUBE - BLUE (12/07/2023 4:05 PM CDT) BLUE TUBE [facility] Comment:Blue top(Sodium citr ate) tubes are kept for 3 days from the collection date. Blood 12/07/2023 4:05 PM CDT 12/07/2023 4:24 PM CDT Eusebio Vivar MD LABORATORY Performing Organization Address [facility] Co de Phone Number [facility] [place] [address] * EXTRA TUBE - DARK GREEN (12/07/2023 4:05 PM CDT) DARK GREEN TUBE Stored [facility] Comment:Dark Green tubes (Li thium Heparin) are stored in the lab for 1 day from the collection date. Blood 12/07/2023 4:05 PM CDT 12/07/2023 4:24 PM CDT Eusebio Vivar MD LABORATORY Performing Organization Address [facility] Co de Phone Number [facility] [address] [address] * (ABNORMAL) ED CHEMISTRY LABS(NA,K,CL,CO2,GLU,CREAT,CA-IONIZED,ANION GAP) (12/07/2023 4:05 PM CDT) Sodium 139 135 - 148 mmol/L [facility] Chloride 97 92 - 108 mmol/L [facility] AnGap 15 8 - 16 mmol/L [facility] Glucose 284(H) 70 - 100 mg/dL [facility] ICA, Actual 4.89 4.40 - 5.20 mg/dL [facility] ICA, pH Corrected 4.74 4.40 - 5.20 mg/dL [facility] Creatinine 1.26(H) 0.70 - 1.25 mg/dL [facility] BICARB 26 22 - 26 mEq/L [facility] eGFR (2020 CKD-EPI) 72 >=60 ml/min/1.7 3m2 [facility] Comment: The estimated glomerular filtration rate (eGFR) was calculated using the CKD-EPI 2020 creatinine equation, which does not include race as a factor. This equation is validated in individuals 18 years of age and older, and eGFR is normalized to a body surface area of 1.73m^2. Potassium 4.5 3.5 - 5.3 mmol/L [facility] Blood 12/07/2023 4:05 PM CDT 12/07/2023 4:27 PM CDT Eusebio Vivar MD LABORATORY [facility] [address] [address] * (ABNORMAL) CBC WITH PLTS/AUTO DIFF (12/07/2023 4:05 PM CDT) WBC 9.80 4.00 - 10.00 k/cmm [facility] RBC 4.08(L) 4.60 - 6.00 m/cmm [facility] Hgb 11.2(L) 13.1 - 17.5 g/dL [facility] Hematocrit 34.7(L) 40.0 - 51.0 % [facility] MCV 85.0 80.0 - 100.0 fL [facility] MCH 27.5 25.0 - 32.0 pg [facility] MCHC 32.3 31.0 - 36.0 g/dL [facility] RDW 13.7 11.5 - 14.5 % [facility] Plt 324 150 - 400 k/cmm [facility] MPV 9.4 6.5 - 12.5 fL [facility] Automated Abs Neutrophil 5.37 1.70 - 6.50 k/cmm [facility] Comment:Preliminary ANC, Fin al Result to Follow Abs Immature Granulocyte 0.12(H) 0.00 - 0.09 k/cmm [facility] Comment:The Immature Granulo cyte Absolute count contains metamyelocytes and myelocytes. Abs Neutrophil 5.37 1.70 - 6.50 k/cmm [facility] Abs Lymphocyte 2.61 0.80 - 4.00 k/cmm [facility] Abs Monocyte 1.32(H) 0.20 - 1.00 k/cmm [facility] Abs Eosinophil 0.34 0.00 - 0.60 k/cmm [facility] Abs Basophil 0.04 0.00 - 0.20 k/cmm [facility] Blood 12/07/2023 4:05 PM CDT 12/07/2023 4:51 PM CDT Eusebio Vivar MD LABORATORY Performing Organization Address City/[facility]/ZIP Co de Phone Number [facility] [address] [address] * LACTATE (LACTIC ACID) (12/07/2023 4:05 PM CDT) Pathologist [facility] Lactate 2.1 0.7 - 2.1 mmol/L [facility] Blood 12/07/2023 4:05 PM CDT 12/07/2023 4:27 PM CDT Narrative [facility] - 12/07/2023 4:27 PM CDT Send specimen on ice! Eusebio Vivar MD LABORATORY Performing Organization Address [facility] Co de Phone Number [address] [address] * (ABNORMAL) C-REACTIVE PROTEIN (12/07/2023 4:05 PM CDT) C-Reactive Protein 82(H) <=4 mg/L [facility] Blood 12/07/2023 4:05 PM CDT 12/07/2023 4:51 PM CDT Eusebio Vivar MD LABORATORY Performing Organization Address [facility] Co de Phone Number [facility] [address] [address] * (ABNORMAL) SED RATE (ESR) (12/07/2023 4:05 PM CDT) Sed Rate 120(H) 2 - 10 mm/hr [facility] Blood 12/07/2023 4:05 PM CDT 12/07/2023 4:51 PM CDT Eusebio Vivar MD LABORATORY Performing Organization Address [facility] Co de Phone Number [facility] [address] [address] * BLOOD AEROBIC/ANAEROBIC CULTURE (12/07/2023 4:05 PM CDT) Final Report No growth after 5 days. [facility] Blood (Peripheral) 12/07/2023 4:05 PM CDT 12/07/2023 7:55 PM CDT Eusebio Vivar MD LAB MICROBIOLOGY Performing Organization Address [facility] de Phone Number [facility] [address] [address] documented in this encounter Visit Diagnoses Diagnosis [...] (Due: Patch removed - Provider: JENNIFER NARAYANAN, [facility] - Comment: Time automatically adjusted [...]
--- OUTSIDE RECORDS SUMMARY | 2024-02-28 09:08 | XMS_ITS | Encounter Summary ---
Author Organization [facility] Address [address] [place] [address] Phone Care Team Providers Care Cytogenetics Technologist Name Role Phone Unavailable Primary Care Provider Unavailabl e Reason for Visit * Auth/Cert (Routine) Specialty Diagnoses / Procedures Referred By Katherine tidwell Referred To Contact SURGERY Diagnoses Other acute osteomyelitis of left foot ([facility]) Eusebio Vivar MD [address] [place] [address] Or P4 [address] [place] [address] Referral ID Status Reason Start Date Expiration Date Visits Re quested Visits Authorized [id number] 1 1 Encounter Details Date Type Department Care Team ([facility] st Contact Info) Description 12/08/2023 7:35 AM CDT - 12/08/2023 9:13 AM CDT Surgery OR P4 [address] [place] [address] Che Palomo DPM [address] [address] PARTIAL AMPUTATION FOOT Social History [...] on discharge due to cost/transport issues at [place] HOSPITAL COURSE BY PROBLEM: Acute osteomyelitis of [...] wound and tissue cultures - NWB to [facility] - F/U podiatry clinic in a week. [...] 12/12 - discussed with PharmD. HTN: Continue LABEL DRIER amlodipine. Hyperlipidemia: Continue LABEL DRIER rosuvastatin. Tobacco use disorder: Continue NRT. Hx of TBI. Malnutrition Weight: (!) 139.9 kg (308 lb 6.8 oz) Wt Change from Previous: 0 Kg Wt Change from Admit: 0 Kg % Wt Change from Adm: 0 % Mcintyre Body Wt (IBW) Male (kg): 75.3 kg [...] Comments: Fax to Dr. Aretha Damon at [phone] PANEL HEPATIC FUNCTION Standing Status: Future Standing Exp. Date: 03/13/24 Order Comments: Fax to Dr. Aretha Damon at [phone] Scheduling Instructions: Hepatic Function Panel includes: Albumin, Alk Phos, ALT, AST, Direct Bilirubin, Total Bilirubin and Total Protein C-REACTIVE PROTEIN Standing Status: Future Standing Exp. Date: 03/13/24 Order Comments: Fax to Dr. Aretha Damon at [phone] CREATININE, SERUM Standing Status: Future Standing Exp. Date: 03/13/24 Order Comments: Fax to Dr. Aretha Damon at [phone] Referral to Physical Therapy Referral Priority: Routine [...] of plan of care? Yes Okay for [facility] Facility standing orders? Order Specific Question Answer Comments OK for [facility] Facility house standing orders? Yes Give Mantoux unless current or contraindicated. Scheduling Instructions: Please specify in comments! Resume previous standing orders per [facility] policy Order Comments: Resume previous standing orders per [facility] policy Scheduling Instructions: Please specify in comments! [...] equipment/supplies recommended: None Final discharge destination: Subacute [facility] with rehab care R: The patient and [...] hesitate to call the Hyperbaric Department at [phone] during clinic hours or page electronic prepress system operator staff with any updates, questions, or [...] note were not included. PHARMACY VANCOMYCIN NOTE Stpehanie Low : 1980 Sex: male Assessment: Interpretation [...] recent) Eusebio Perez, PharmJaneen 12/13/2023 21:07 Pager: (TelAppwoRx) * Emily Hannah RN - 12/13/2023 1:07 PM CDTSummary: Discharge planning Clinical Coordinator Update Patient is medically ready for discharge back to [facility]- since 12/11. Spoke to Tabatha at [facility] today ([phone]) who reported that the patient was not [...] () of patient departure: 12/13/2023 @1530 Destination: [address] [place] [address] Type of ride: wheelchair Transportation vendor of ride: [facility] [phone] * If this ride needs to be [...] Clinical Coordinators will be informed via a TelAppwoRx page. PCS form was completed in Progress [...] infection Attending provider: Igor Glover MD Insurance: [facility] Secondary insurance: [place] [employer] Height: [...] hesitate to call the Hyperbaric Department at [phone] during clinic hours or page electronic prepress system operator staff with any updates, questions, or [...] 12/12 - discussed with PharmD. HTN: Continue LABEL DRIER amlodipine. Hyperlipidemia: Continue LABEL DRIER rosuvastatin. Tobacco use disorder: Continue NRT. Hx of TBI. FEN: Regular consistent carb diet. Code status: Full code. VTE prophylaxis: VTE prophylaxis with lovenox to start 12/10. Lines: No central line. No mujica. Discharge planning: Discharg to [facility] in [place] when they're able to accept him back.Possibly [...] Glover MD, 12/12/2023 2:02 PM Page via Covario * Narcisa Tobar [address] - 12/12/2023 9:50 AM CDT . Care Management Follow-up Note Patient Name: Stephanie Low Date: 12/12/2023 Patient/Family Discharge Goals: Patient's Discharge Goal: back to [facility] Family's Discharge Goal: n/a Discharge [...] Selected Services Address Phone Fax Patient Preferred [facility] Pending - No Request Sent N/A [id number] [facility] [address] -- Narcisa Tobar LGSW, 12/12/2023 9:50 AM * Aretha Damon MD - 12/12/2023 8:53 AM CDT ID PROGRESS NOTE Stephanie Low 1980 male [id number] ASSESSMENT: MRSA left foot osteomyelitis S/p I&D [...] 12/12 - discussed with PharmD. HTN: Continue LABEL DRIER amlodipine. Hyperlipidemia: Continue LABEL DRIER rosuvastatin. Tobacco use disorder: Continue NRT. Hx of TBI. FEN: Regular consistent carb diet. Code status: Full code. VTE prophylaxis: VTE prophylaxis with lovenox to start 12/10. Lines: No central line. No mujica. Discharge planning: Discharg to [facility] in [place] when they're able to accept him back.Possibly [...] Glover MD, 12/11/2023 7:34 PM Page via Covario * Eusebio Perez, PharmD - 12/11/2023 3:38 [...] recent) Eusebio Perez, Jaxon 12/11/2023 19:22 Pager: (TelHealthRallyq) * Lizbeth Cavazos LICSW - 12/11/2023 2:41 PM CDT Weekend Inpatient Social Work Note Summary: Weekend SW paged by bedside RN to help facilitate coordination back to TCU today. SW called Cruz Aguiar and left a voicemail. Many barriers are at play for a weekend return - patient hasIV antibiotics, he is recommended to receive 20 HBO sessions (1st today), and has [facility] Medicare Advantage (which requires prior authorization). GARY advised this likely cannot be resolved during the weekend due to the barriers listed above. Follow up needed: GARY will try to problem solve if [facility] Aguiar calls back, if not weekday team to follow up on plan for discharge. RAJ Cadena LICSW Inpatient Industrial Service Technician - Casual (weekends only) Available via [employer] Lizbeth Cavazos LICSW, 12/11/2023 2:41 PM Addendum [...] hesitate to call the Hyperbaric Department at [phone] during clinic hours or page electronic prepress system operator staff with any updates, questions, or [...] continue to follow while admitted. Please page electronic prepress system operator resident with questions. Patient was discussed with electronic prepress system operator staff Interval history: Patient seen and evaluated [...] 12/12 - discussed with PharmD. HTN: Continue LABEL DRIER amlodipine. Hyperlipidemia: Continue LABEL DRIER rosuvastatin. Tobacco use disorder: Continue NRT. Hx of TBI. FEN: Regular consistent carb diet. Code status: Full code. VTE prophylaxis: VTE prophylaxis with lovenox to start 12/10. Lines: No central line. No mujica. 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 Denise Esteves Inpatient Clinical Coordinator [facility] Office: [phone] * Suzy Patino DPM - 12/10/2023 8:42 [...] Schizophrenia History of TBI --Patient is own [facility] RECOMMENDATIONS: 1. Dressing: Dressed in [...] continue to follow while admitted. Please page electronic prepress system operator resident with questions. Patient was discussed with electronic prepress system operator staff Interval history: Patient seen resting comfortably [...] 12/12 - discussed with PharmD. HTN: Continue LABEL DRIER amlodipine. Hyperlipidemia: Continue LABEL DRIER rosuvastatin. Tobacco use disorder: Continue NRT. Hx of TBI. FEN: Regular consistent carb diet. Code status: Full code. VTE prophylaxis: VTE prophylaxis with hep to start 12/08. Lines: No central line. No mujica. 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 [...] 12/09/2023 Expected DC Date: 12/10/2023 Social Information Circular Saw Operator Used: None needed Decision Maker at Admission: Self Living Situation: penitentiary (see comment) Patient Identified Support System: sister, significant other Services Receiving: Waivered services (see comment) Complex Medical Needs: Other (see comment) (wound care) Transportation Used for Discharge: stretcher Safety Concerns: None Behavioral Health Concerns: None Patient Family Goals Patient's Discharge Goal: back to [facility] Family' Discharge Goal: n/a Plan/Interventions Expected Discharge Disposition: [facility] Facility Patient Information Verification Verified demographic information, including SSN, Next of Kin, and Guardianship: Yes Verified PCP: Yes If post-acute placement is needed, have vaccination status needs been addressed?: Not applicable Risks for Readmission: None Summary of pertinent information: Patient admitted from [facility] with concern for a left great to osteomyelitis that was resected 12/07. 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 Have a call out to [facility] to confirm bed hold ([phone]). Spoke to staff at his [facility] (Minnie [phone]) to also update and confirm that he can return there when ultimately. Patient currently has started on HBO, this may be problematic with returning to [facility]. Emily Hannah RN, 12/09/2023 1:49 [...] Schizophrenia History of TBI --Patient is own [facility] RECOMMENDATIONS: 1. Dressing: Dressed with [...] continue to follow while inpatient Please page electronic prepress system operator resident with questions. Patient was discussed with electronic prepress system operator staff Interval history: Patient seen and evaluated [...] Schizophrenia History of TBI --Patient is own [facility] RECOMMENDATIONS: 1. Dressing: Dressed in [...] continue to follow while inpatient Please page electronic prepress system operator resident with questions. Patient was seen with electronic prepress system operator staff, Dr. Palomo Interval history: Patient is [...] male D: Stephanie Low was admitted to [address] from PACU at 1446 for Other acute osteomyelitis of leftfoot ([facility]) . Patient: alert, oriented to person, [...] informed of Patient Valuables and Belongings Policy (#[id number]): Policy reviewed - patient/family/designee has indicated that [...] 12/12 - discussed with PharmD. HTN: Continue LABEL DRIER amlodipine. Hyperlipidemia: Continue LABEL DRIER rosuvastatin. Tobacco use disorder: Continue NRT. Hx of TBI. FEN: Regular consistent carb diet. Code status: Full code. VTE prophylaxis: VTE prophylaxis with hep to start 12/08. Lines: No central line. No mujica. 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 [...] Shafer PA-C, 12/08/2023 8:34 AM Page via Covario documented in this encounter H&P Notes * [...] Ruled Out #T2DM: A1c 6.8% 07/2023. Reduce LABEL DRIER lantus to 15 U while NPO, Novolog 1U/CHO + LDSSI. Rechecking A1c. #HTN: LABEL DRIER amlodipine 10 mg daily #HLD: LABEL DRIER statin #Paranoid schizophrenia: LABEL DRIER prazosin #HILL: LABEL DRIER escitalopram 20 mg daily #Tobacco use disorder: [...] including pre-visit review of separately obtained history, [id number] interaction performing medically appropriate physical exam, patientcounseling/education, [...] sign off. [place] [facility] [place] for [...] wound healing. Message sent to primary team. [facility] Nursing follow up: Appreciate the opportunity to consult on this patient, Wound Ostomy Continence Services will sign off at this time. Please place additional 'Wound Consult' if wanting further assessment for this patient. Staff to continue to follow skin injury bundle. Escalate concerns to WOCN through additional consult or to the provider when barriers are identified. WOCN available Wednesday through Wednesday on [employer] or [phone] [facility] Nursing attempts to see patients in person when possible, but will at times complete a chart/media review in order to recommend wound treatment in a timely manner. Please reconsult [facility] if wound condition changes or the [...] at PharmD General Weekend Days (TelmedIQ) or [phone]. If no response within needed timeframe, please contact central pharmacy via phone at [phone]. Planned discharge medications are: Medication List Medications [...] NEW CONSULT NOTE Stephanie Low 1980 male [id number] REASON FOR CONSULT: I was asked to [...] Prior to recent hospitalization pt lived at longterm with elevator. Was independent with mobility SUBJECTIVE [...] bearing restrictions, otherwise bed to chair only LABEL DRIER Appropriate: No (more OR) Participated in goal setting and treatment planning: Patient Agrees with goals and treatment plan: Question patient's ability to understand. Gracia Arredondo, PT 12/10/2023 Pager: [facility] PT Department * David Cortes MD - 12/09/2023 9:58 AM CDT Images from the original note were not included. [facility] HYPERBARIC MEDICINE CONSULTATION Referring [...] controlled DMII male referred to [facility] Hyperbaric medical team for [...] Hyperbaric [facility]. Please do not hesitate to call the department at [phone] during clinic hours ([phone]) or page the electronic prepress system operator HYPERBARIC staff with any questions or concerns. [...] you for allowing us to participate in [facility]. [facility] Hyperbaric Medicine: [phone]. David Cortes MD * Angela Cardenas, OCN - 12/08/2023 3:00 PM CDTAssociated Order(s): CONSULT TO WOUND NURSE Images from the original note were not included. [facility] Nursing consulted by nursing for perineal wounds. Pt was [place] [facility] [place]24 for [...] wound healing. Message sent to primary team. [facility] Nursing follow up: later this week after surgery sees Staff to continue to follow skin injury bundle. Escalate concerns to WOCN through additional consult or to the provider when barriers are identified. WOCN available Wednesday through Wednesday on [employer] or [phone] [facility] Nursing attempts to see patients in [...] Schizophrenia History of TBI --Patient is own [facility] RECOMMENDATIONS: 1. Dressing: Daily dressing [...] continue to follow while inpatient Please page electronic prepress system operator resident with questions. Patient was seen with electronic prepress system operator staff, Dr. Palomo CHIEF COMPLAINT: Left foot [...] OR Date: 12/10/2023 Surgeon: Suzy Patino DPM Gauge Inspector(s): Samina Singletary DPM PGY3 Pre-Op Diagnosis: Packed [...] 1980 Sex: male Surgeon: Che Palomo DPM Gauge Inspector(s): Niraj Lewis DPM PGY-3 Jf Sky, MS-4 [...] 2023 2242 Started nicotine gum PRN Started LABEL DRIER glargine and lispro The patient remained in the emergency department through the end of my shift. Their care was signedout [id number] with the oncoming provider. Dx, DDx, Assessment and Plan was discussed with Attending Emergency Medicine Physician. Final Clinical Impression 1. Other acute osteomyelitis of left foot ([facility]) Disposition and Plan Signed out to [...] in real time. Please contact me via [employer] staff message if you note any errors requiring clarification. * Farida Beyer, SABINE - 12/07/2023 7:41 PM CDT Assumed care of pt. SNF director here as pt was reported missing when he did not return back from the clinic. Plan for admission with OR tomorrow. NPO at midnight, pt aware. * Allyssa Drummond MD - 12/07/2023 4:25 PM CDT Emergency Department Physician Note [facility] HISTORY Stephanie Low is a [...] 1. Other acute osteomyelitis of left foot ([facility]) DISPOSITION & PLAN Patient remained in [...] Toe Head to Toe Assessment Shift Summary [id number] Alert and oriented x3, unsure of the [...] Physical Therapy Inpatient Discharge Summary Stephanie Low [id number] Diagnosis Patient Active Problem List Diagnosis Fourniers [...] Therapist: Gracia Arredondo, PT Date: 12/14/2023 Pager: [facility] PT Department * Nursing Assessment - Kate Sarmiento RN - 12/14/2023 6:45 AM CDT Nursing Assessment Head to Toe Head to Toe Assessment Shift Summary Shift Summary [id number] Pt alert oriented and able to make [...] Toe Head to Toe Assessment Shift Summary [id number] Daily dressing change done per order, reported [...] Toe Head to Toe Assessment Shift Summary [id number] Alert and oriented x 4, able to [...] Toe Head to Toe Assessment Shift Summary [id number] Patient is alert and oriented x 4,RA.Vitals [...] amputation RLE - amputation Comments: R amputation LABEL DRIER Integumentary Assessment Within Defined Limits except for: [...] Toe Head to Toe Assessment Shift Summary [id number] Patient is alert and oriented x 4,RA.Vitals [...] 12/10/2023 6:30 PM PGY-1 [facility] Pager: [phone] * Nursing Assessment - May Torres, RN [...] Singletary DPM - 12/10/2023 11:06 AM CDT [facility] Immediate Post Operative Note Note [...] Toe Head to Toe Assessment Shift Summary [id number] Alert and oriented x3, unsure of the [...] Head to Toe Assessment Shift Summary Night [id number] PT is AO x4. Able to make [...] Dennis RN - 12/08/2023 2:28 PM CDTSummary: MICRO COMPUTER SPECIALISTexcavator backhoe operator PACU to IP Nursing Handoff Note [...] Comments: RN: Cheryl Dennis RN Extension #: [id number] * Op Note Immediate - Niraj Lewis DPM - 12/08/2023 7:48 AM CDT [facility] Immediate Post Operative Note Note [...] 1. Other acute osteomyelitis of left foot ([facility]) Eusebio Vivar MD, 12/08/2023 12:16 AM * Interval Note Provider - Shayna Schreiber MD - 12/07/2023 8:53 PM CDT Handoff Communication Note for Hospital Admission Verbal handoff received from [facility] Drummond in [facility]. Patient Class: Inpatient Cardiac Monitoring: [...] designation above. Please page the MOD via TelHealthRallyq with clinical updates or status changes. Note [...] CDT Other acute osteomyelitis of left foot ([facility]) POC GLUCOSE Routine 12/10/2023 6:16 AM CDT [...] CDT Other acute osteomyelitis of left foot ([facility]) TC LAB BLOOD DRAW BY VENIPUNCTURE Routine [...] Glucose 255(H) 70 - 100 mg/dL [facility] Blood 12/14/2023 11:2 9 AM CDT Eusebio Vivar MD LABORATORY [facility] [address] [place] [address], * (ABNORMAL) POC GLUCOSE (12/14/2023 6:32 AM CDT) POC Glucose 186(H) 70 - 100 mg/dL [facility] Blood 12/14/2023 6:32 AM CDT Eusebio Vivar MD LABORATORY Performing Organization Address [facility] Co de Phone Number [facility] [address] [place] [address], * (ABNORMAL) POC GLUCOSE (12/13/2023 9:05 PM CDT) POC Glucose 175(H) 70 - 100 mg/dL [facility] Blood 12/13/2023 9:05 PM CDT Eusebio Vivar MD LABORATORY Performing Organization Address [facility] Co de Phone Number [facility] POINT OF [address] [address], * VANCOMYCIN LEVEL (12/13/2023 5:24 PM CDT) Vancomycin 17.0 mcg/mL [facility] Comment:Expected Range (Trou gh): 10-20 mcg/ml Blood 12/13/2023 5:24 PM CDT 12/13/2023 5:46 PM CDT Narrative [facility] - 12/13/2023 6:34 PM CDT Please ensure trough level drawn prior to next vancomycin dose. Thank you Peak or trough:->Trough Eusebio KolbD LABORATORY Performing Organization Address [facility] Co de Phone Number [facility] [address] [address] * (ABNORMAL) POC GLUCOSE (12/13/2023 4:00 PM CDT) POC Glucose 153(H) 70 - 100 mg/dL [facility] Blood 12/13/2023 4:00 PM CDT Eusebio Vivar MD LABORATORY Performing Organization Address City/[facility] Co de Phone Number [facility] POINT OF [address] [address], * (ABNORMAL) POC GLUCOSE (12/13/2023 11:47 AM CDT) POC Glucose 271(H) 70 - 100 mg/dL [facility] Blood 12/13/2023 11:4 7 AM CDT Eusebio Vivar MD LABORATORY Performing Organization Address City/[facility] Co de Phone Number [facility] POINT [facility] CARE [address] [id number], [place] * (ABNORMAL) POC GLUCOSE (12/13/2023 6:35 AM CDT) POC Glucose 204(H) 70 - 100 mg/dL [facility] Blood 12/13/2023 6:35 AM CDT Eusebio Vivar MD LABORATORY Performing Organization Address [facility] Co de Phone Number [facility] [address] [place] [address], [place] * (ABNORMAL) POC GLUCOSE (12/12/2023 8:54 PM CDT) POC Glucose 170(H) 70 - 100 mg/dL [facility] POINT OF [facility] Blood 12/12/2023 8:54 PM CDT Eusebio Vivar MD LABORATORY Performing Organization Address City/[facility] Co de Phone Number [facility] [address] [place] [address], [place] * (ABNORMAL) POC GLUCOSE (12/12/2023 4:10 PM CDT) POC Glucose 252(H) 70 - 100 mg/dL [facility] Blood 12/12/2023 4:10 PM CDT Eusebio Vivar MD LABORATORY Performing Organization Address City/[facility] Co de Phone Number [facility] [address] [place] [address], [place] * (ABNORMAL) POC GLUCOSE (12/12/2023 11:07 AM CDT) POC Glucose 200(H) 70 - 100 mg/dL [facility] POINT OF [facility] Blood 12/12/2023 11:0 7 AM CDT Eusebio Vivar MD LABORATORY Performing Organization Address [facility] de Phone Number [facility] [address] [place], [place] [address], * (ABNORMAL) POC GLUCOSE (12/12/2023 6:42 AM CDT) POC Glucose 185(H) 70 - 100 mg/dL [facility] PO[facility] OF [facility] Blood 12/12/2023 6:42 AM CDT Eusebio Vivar MD LABORATORY Performing Organization Address [facility] de Phone Number [facility] [address] [place] [address], [place] * (ABNORMAL) POC GLUCOSE (12/11/2023 9:10 PM CDT) POC Glucose 226(H) 70 - 100 mg/dL [facility] Blood 12/11/2023 9:10 PM CDT Eusebio Vivar MD LABORATORY Performing Organization Address [facility] de Phone Number [facility] [address] [place] [address], [place] * VANCOMYCIN LEVEL (12/11/2023 5:28 PM CDT) Vancomycin 19.6 mcg/mL [facility] Comment:Expected Range (Trou gh): 10-20 mcg/ml Blood 12/11/2023 5:28 PM CDT 12/11/2023 5:37 PM CDT Narrative [facility] - 12/11/2023 6:46 PM CDT Peak or trough:->Trough Igor Glover MD LABORATORY [facility] [address] [place] [address] * (ABNORMAL) POC GLUCOSE (12/11/2023 4:13 PM CDT) POC Glucose 173(H) 70 - 100 mg/dL [facility] Blood 12/11/2023 4:13 PM CDT Eusebio Vivar MD LABORATORY Performing Organization Address City/[facility]/ZIP Co de Phone Number [facility] [address] [place] [address], [place] * (ABNORMAL) POC GLUCOSE (12/11/2023 11:43 AM CDT) POC Glucose 283(H) 70 - 100 mg/dL [facility] Blood 12/11/2023 11:4 3 AM CDT Eusebio Vivar MD LABORATORY Performing Organization Address [facility] Co de Phone Number [facility] POINT OF [address] [address], [place] * (ABNORMAL) POC GLUCOSE (12/11/2023 10:28 AM CDT) POC Glucose 198(H) 70 - 100 mg/dL [facility] Blood 12/11/2023 10:2 8 AM CDT Eusebio Vivar MD LABORATORY Performing Organization Address City/[facility] Co de Phone Number [facility] [address] [place] [address], [place] * (ABNORMAL) POC GLUCOSE (12/11/2023 6:41 AM CDT) POC Glucose 173(H) 70 - 100 mg/dL [facility] Blood 12/11/2023 6:41 AM CDT Eusebio Viavr MD LABORATORY Performing Organization Address City/[facility]/ZIP Co de Phone Number [facility] [address] [place] [address], * (ABNORMAL) CBC WITH PLTS/AUTO DIFF (12/11/2023 5:50 AM CDT) WBC 8.72 4.00 - 10.00 k/cmm [facility] RBC 3.82(L) 4.60 - 6.00 m/cmm [facility] Hgb 10.6(L) 13.1 - 17.5 g/dL [facility] Hematocrit 32.4(L) 40.0 - 51.0 % [facility] MCV 84.8 80.0 - 100.0 fL [facility] MCH 27.7 25.0 - 32.0 pg [facility] MCHC 32.7 31.0 - 36.0 g/dL [facility] RDW 13.5 11.5 - 14.5 % [facility] Plt 400 150 - 400 k/cmm [facility] MPV 9.3 6.5 - 12.5 fL [facility] Automated Abs Neutrophil 4.22 1.70 - 6.50 k/cmm [facility] Comment:Preliminary ANC, Fin al Result to Follow Abs Immature Granulocyte 0.09 0.00 - 0.09 k/cmm [facility] Comment:The Immature Granulo cyte Absolute count contains metamyelocytes and myelocytes. Abs Neutrophil 4.22 1.70 - 6.50 k/cmm [facility] Abs Lymphocyte 2.59 0.80 - 4.00 k/cmm [facility] Abs Monocyte 1.00 0.20 - 1.00 k/cmm [facility] Abs Eosinophil 0.79(H) 0.00 - 0.60 k/cmm [facility] Abs Basophil 0.03 0.00 - 0.20 k/cmm [facility] Blood 12/11/2023 5:50 AM CDT 12/11/2023 6:26 AM CDT Igor Glover MD LABORATORY [facility] [address] [address] * (ABNORMAL) PANEL BASIC METABOLIC (BMP) (12/11/2023 5:50 AM CDT) CO2 25 22 - 30 mmol/L [facility] Glucose 178(H) 70 - 100 mg/dL [facility] BUN 9 6 - 20 mg/dL [facility] Creatinine 0.92 0.70 - 1.25 mg/dL [facility] Calcium 9.0 8.6 - 10.0 mg/dL [facility] Sodium 136 135 - 148 mmol/L [facility] Potassium 4.1 3.5 - 5.3 mmol/L [facility] Chloride 100 92 - 108 mmol/L [facility] eGFR (2020 CKD-EPI) 105 >=60 ml/min/1.7 3m2 [facility] Comment: The estimated glomerular filtration rate (eGFR) was calculated using the CKD-EPI 2020 creatinine equation, which does not include race as a factor. This equation is validated in individuals 18 years of age and older, and eGFR is normalized to a body surface area of 1.73m^2. AnGap 11 8 - 16 mmol/L [facility] Blood 12/11/2023 5:50 AM CDT 12/11/2023 6:25 AM CDT Igor Glover MD LABORATORY [facility] [place] [address] * (ABNORMAL) POC GLUCOSE (12/10/2023 9:03 PM CDT) [facility] POC Glucose 206(H) 70 - 100 mg/dL [facility] Blood 12/10/2023 9:03 PM CDT Eusebio Vivar MD LABORATORY [facility] [address] [place] [address] * (ABNORMAL) POC GLUCOSE (12/10/2023 4:16 PM CDT) [facility] POC Glucose 341(H) 70 - 100 mg/dL [facility] Blood 12/10/2023 4:16 PM CDT Eusebio Vivar MD LABORATORY [facility] [address] [place] [address], [place] * XR CHEST 2 VIEWS PA [...] (ABNORMAL) POC GLUCOSE (12/10/2023 12:09 PM CDT) [facility] POC Glucose 194(H) 70 - 100 mg/dL [facility] Blood 12/10/2023 12:0 9 PM CDT Eusebio Vivar MD LABORATORY [facility] [address] [place] [address], * SURGICAL PATHOLOGY (12/10/2023 11:07 AM CDT) [facility] SURG PATH FINAL ?Surgical Pathology Report Collection Date: ?12/10/2023 11:07 CDT ? Ordering Physician: ? SUZY PATINO Received Date: ?12/10/2023 12:07 CDT ? Accession Number: ? [id number] ? Surgical Pathology Final Report Specimen Type: [...] Attending Pathologist. DDB/DDB 12.10.2023 13:39 [facility] AP Specimen FOOT STRUCTURE / Unknown 12/10/2023 11:07 AM CDT Comment:OR: Routine gross an d microscopic examination Tissue: 1st metatarsel left foot, cut margin Site: foot Additional clinical information: Suzy Patino DPM LAB PATHOLOGY Performing Organization Address [facility] Co de Phone Number [facility] [place] [address] * (ABNORMAL) POC GLUCOSE (12/10/2023 6:16 AM CDT) POC Glucose 228(H) 70 - 100 mg/dL [facility] Blood 12/10/2023 6:16 AM CDT Eusebio Vivar MD LABORATORY Performing Organization Address [facility] Co de Phone Number [facility] [address] [place] [address] * (ABNORMAL) CBC WITH PLTS/AUTO DIFF (12/10/2023 5:06 AM CDT) WBC 8.35 4.00 - 10.00 k/cmm [facility] RBC 3.81(L) 4.60 - 6.00 m/cmm [facility] Hgb 10.3(L) 13.1 - 17.5 g/dL [facility] Hematocrit 32.5(L) 40.0 - 51.0 % [facility] MCV 85.3 80.0 - 100.0 fL [facility] MCH 27.0 25.0 - 32.0 pg [facility] MCHC 31.7 31.0 - 36.0 g/dL [facility] RDW 13.4 11.5 - 14.5 % [facility] Plt 377 150 - 400 k/cmm [facility] MPV 9.4 6.5 - 12.5 fL [facility] Automated Abs Neutrophil 4.14 1.70 - 6.50 k/cmm [facility] Comment:Preliminary ANC, Fin al Result to Follow Abs Immature Granulocyte 0.08 0.00 - 0.09 k/cmm [facility] Comment:The Immature Granulo cyte Absolute count contains metamyelocytes and myelocytes. Abs Neutrophil 4.14 1.70 - 6.50 k/cmm [facility] Abs Lymphocyte 2.39 0.80 - 4.00 k/cmm [facility] Abs Monocyte 1.06(H) 0.20 - 1.00 k/cmm [facility] Abs Eosinophil 0.64(H) 0.00 - 0.60 k/cmm [facility] Abs Basophil 0.04 0.00 - 0.20 k/cmm [facility] Blood 12/10/2023 5:06 AM CDT 12/10/2023 5:40 AM CDT Igor Glover MD LABORATORY [facility] [address] [address] * (ABNORMAL) PANEL BASIC METABOLIC (BMP) (12/10/2023 5:06 AM CDT) CO2 26 22 - 30 mmol/L [facility] Glucose 204(H) 70 - 100 mg/dL [facility] BUN 11 6 - 20 mg/dL [facility] Creatinine 0.92 0.70 - 1.25 mg/dL [facility] Calcium 9.0 8.6 - 10.0 mg/dL [facility] Sodium 137 135 - 148 mmol/L [facility] Potassium 4.2 3.5 - 5.3 mmol/L [facility] Chloride 101 92 - 108 mmol/L [facility] eGFR (2020 CKD-EPI) 105 >=60 ml/min/1.7 3m2 [facility] Comment: The estimated glomerular filtration rate (eGFR) was calculated using the CKD-EPI 2020 creatinine equation, which does not include race as a factor. This equation is validated in individuals 18 years of age and older, and eGFR is normalized to a body surface area of 1.73m^2. AnGap 10 8 - 16 mmol/L [facility] Blood 12/10/2023 5:06 AM CDT 12/10/2023 5:40 AM CDT Igor Glover MD LABORATORY [facility] [place] [address] * (ABNORMAL) POC GLUCOSE (12/09/2023 9:18 PM CDT) POC Glucose 204(H) 70 - 100 mg/dL [facility] Blood 12/09/2023 9:18 PM CDT Eusebio Vivar MD LABORATORY [facility] [address] [place] [address] * (ABNORMAL) PANEL BASIC METABOLIC (BMP) (12/09/2023 5:56 PM CDT) Sodium 134(L) 135 - 148 mmol/L [facility] Potassium 4.2 3.5 - 5.3 mmol/L [facility] Chloride 99 92 - 108 mmol/L [facility] CO2 23 22 - 30 mmol/L [facility] AnGap 12 8 - 16 mmol/L [facility] Glucose 246(H) 70 - 100 mg/dL [facility] BUN 13 6 - 20 mg/dL [facility] Creatinine 0.98 0.70 - 1.25 mg/dL [facility] Calcium 8.8 8.6 - 10.0 mg/dL [facility] eGFR (2020 CKD-EPI) 97 >=60 ml/min/1.7 3m2 [facility] [...] LABORATORY Performing Organization Address [facility] Co de Phone Number [address] [address] * VANCOMYCIN LEVEL (12/09/2023 5:56 PM CDT) Vancomycin 22.0 mcg/mL [facility] Comment:Expected Range (Trou gh): 10-20 mcg/ml Blood 12/09/2023 5:56 PM CDT 12/09/2023 6:26 PM CDT Narrative [facility] - 12/09/2023 8:14 PM CDT Peak or trough:->Trough Gwen Gamez PharmD LABORATORY Performing Organization Address [facility] Co de Phone Number [facility] [address] [address] * (ABNORMAL) POC GLUCOSE (12/09/2023 4:08 PM CDT) POC Glucose 231(H) 70 - 100 mg/dL [facility] Blood 12/09/2023 4:08 PM CDT Eusebio Vivar MD LABORATORY Performing Organization Address [facility]/State/ZIP Co de Phone Number [facility] [address] [place] [address], [place] * (ABNORMAL) POC GLUCOSE (12/09/2023 11:13 AM CDT) POC Glucose 282(H) 70 - 100 mg/dL [facility] Blood 12/09/2023 11:1 3 AM CDT Eusebio Vivar MD LABORATORY [facility] [address] [place] [address], [place] * HBO TCO2 MEASUREMENT COMPLETE (12/09/2023 [...] Reg 2002; 10:198-207. Bridget QUIÑONEZ et al. [facility] 2009, Vol. 36(1). ? [place] 07/27/13 [...] POC Glucose 198(H) 70 - 100 mg/dL [facility] Blood 12/09/2023 6:43 AM CDT Eusebio Vivar MD LABORATORY Performing Organization Address [facility] Co de Phone Number [facility] POINT OF [address] [address], [place] * (ABNORMAL) POC GLUCOSE (12/08/2023 9:10 PM CDT) POC Glucose 268(H) 70 - 100 mg/dL [facility] Blood 12/08/2023 9:10 PM CDT Eusebio Vivar MD LABORATORY Performing Organization Address [facility] Co de Phone Number [facility] POINT OF [address] [address], [place] * (ABNORMAL) SED RATE (ESR) (12/08/2023 4:47 PM CDT) Sed Rate 120(H) 2 - 10 mm/hr [facility] Blood 12/08/2023 4:47 PM CDT 12/08/2023 5:07 PM CDT Suzy Shafer PA-C LABORATORY Performing Organization Address City/[facility]/ZIP Co de Phone Number [facility] [address] [address] * (ABNORMAL) PANEL BASIC METABOLIC (BMP) (12/08/2023 4:47 PM CDT) Sodium 134(L) 135 - 148 mmol/L [facility] Potassium 4.0 3.5 - 5.3 mmol/L [facility] Chloride 98 92 - 108 mmol/L [facility] CO2 24 22 - 30 mmol/L [facility] AnGap 12 8 - 16 mmol/L [facility] Glucose 247(H) 70 - 100 mg/dL [facility] BUN 16 6 - 20 mg/dL [facility] Creatinine 0.98 0.70 - 1.25 mg/dL [facility] Calcium 8.7 8.6 - 10.0 mg/dL [facility] eGFR (2020 CKD-EPI) 97 >=60 ml/min/1.7 3m2 [facility] [...] CDT Suzy Shafer PA-C LABORATORY [facility] [address] [address] * (ABNORMAL) GLYCOSYLATED HGB - A1C (12/08/2023 4:47 PM CDT) Hemoglobin A1C 8.5(H) 4.0 - 5.6 % [facility] Comment: Increased risk [...] Glucose 197(H) 68 - 114 [facility] [...] 12/08/2023 5:07 PM CDT Narrative [facility] - 12/08/2023 6:01 PM CDT If not done in the last 30 days. Suzy Shafer PA-C LABORATORY [facility] [address] [address] * (ABNORMAL) CBC WITH PLATELET (12/08/2023 4:47 PM CDT) WBC 10.39(H) 4.00 - 10.00 k/cmm [facility] RBC 3.59(L) 4.60 - 6.00 m/cmm [facility] Hgb 9.8(L) 13.1 - 17.5 g/dL [facility] Hematocrit 30.8(L) 40.0 - 51.0 % [facility] MCV 85.8 80.0 - 100.0 fL [facility] MCH 27.3 25.0 - 32.0 pg [facility] MCHC 31.8 31.0 - 36.0 g/dL [facility] RDW 13.5 11.5 - 14.5 % [facility] Plt 314 150 - 400 k/cmm [facility] MPV 9.3 6.5 - 12.5 fL [facility] Blood 12/08/2023 4:47 PM CDT 12/08/2023 5:07 PM CDT Suzy Shafer PA-C LABORATORY [facility] [address] [address] * (ABNORMAL) C-REACTIVE PROTEIN (12/08/2023 4:47 PM CDT) C-Reactive Protein 77(H) <=4 mg/L [facility] Blood 12/08/2023 4:47 PM CDT 12/08/2023 5:07 PM CDT Suzy Shafer PA-C LABORATORY [facility] [address] [place] [phone] * (ABNORMAL) POC GLUCOSE (12/08/2023 4:20 PM CDT) POC Glucose 204(H) 70 - 100 mg/dL [facility] Blood 12/08/2023 4:20 PM CDT Eusebio Vivar MD LABORATORY Performing Organization Address City/[facility]/ZIP Co de Phone Number [facility] [address] [place] [address], [place] * (ABNORMAL) POC GLUCOSE (12/08/2023 12:35 PM CDT) POC Glucose 227(H) 70 - 100 mg/dL [facility] POINT OF [facility] Blood 12/08/2023 12:3 5 PM CDT Eusebio Vivar MD LABORATORY Performing Organization Address [facility] Co de Phone Number [address] [address], [place] * (ABNORMAL) POC GLUCOSE (12/08/2023 10:02 AM CDT) POC Glucose 263(H) 70 - 100 mg/dL [facility] Blood 12/08/2023 10:0 2 AM CDT Eusebio Vivar MD LABORATORY Performing Organization Address City/[facility]/ZIP Co de Phone Number [facility] POINT [facility] [address] [place] [address], [place] * XR FOOT LEFT 3 V [...] Glucose 214(H) 70 - 100 mg/dL [facility] Blood 12/08/2023 8:32 AM CDT Eusebio Vivar MD LABORATORY [facility] [address] [place] [address], * SURGICAL PATHOLOGY (12/08/2023 7:56 AM CDT) SURG PATH FINAL ?Surgical Pathology Report Collection Date: ?12/08/2023 07:56 CDT ?Ordering Physician: ? CHE PALOMO Received Date: ?12/08/2023 08:41 CDT ?Accession Number: ? [id number] ? Surgical Pathology Final Report Specimen Type: [...] specimen reveals a yellow, trabeculated cut surface. [employer]ue Tile [employer] Operator sections are submitted following decalcification as follows: A1: Resection margin, en face A2: Full cross-section of metatarsal head (DDB) DDB/DDB 12.08.2023 9:52 Microscopic Description: Microscopic examination performed and findings are reflected in the final diagnosis. I personally examined the relevant preparations and rendered and confirmed the diagnosis. ? Signed - Tootie Mackenzie M.D. Attending Pathologist. DDB/DDB 12.08.2023 9:52 [facility] AP Specimen FOOT STRUCTURE / Unknown 12/08/2023 7:56 AM CDT Comment:OR: Routine gross an d microscopic examination Tissue: Left first metatarsal head Site: left foot Additional clinical information: evaluate cut side for osteomyelitis Che Mullent DP LAB PATHOLOGY Performing Organization Address [facility] Co de Phone Number [facility] [address] [address] * FUNGUS CULTURE:INCLUDES SUHAS (12/08/2023 7:51 AM CDT) Final Report No fungus isolated. [facility] SUHAS Prep No fungal elements seen. [facility] Bone STRUCTURE OF LEFT FOOT / Unknown 12/08/2023 7:51 AM CDT 12/08/2023 9:00 AM CDT Comment:2. Bone first metata rsal left foot Che Jonbitt DP LAB MICROBIOLOGY Performing Organization Address [facility] Co de Phone Number [facility] [address] [address] * ANAEROBE CULTURE (12/08/2023 7:51 AM CDT) Final Report No anaerobes isolated. [facility] Bone STRUCTURE OF LEFT FOOT / Unknown 12/08/2023 7:51 AM CDT 12/08/2023 9:00 AM CDT Comment:2. Bone first metata rsal left foot Che L Beth DP LAB MICROBIOLOGY Performing Organization Address [facility] de Phone Number [facility] [address] [address] * (ABNORMAL) TISSUE CULTURE:INCLUDES GRAM STAIN (12/08/2023 7:51 AM CDT) Final Report Positive Culture Few METHICILLIN RESISTANT Staphylococcus aureus (MRSA) isolated. 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 For susceptibility, see previous report on culture from wound culture collected 12/07/23. (POS) [facility] Organism METHICILLIN RESISTANT STAPHYLOCOCCUS AUREUS (MRSA)(POS) [facility] Gram Stain Report Corrected Report Positive Gram stain Rare PMN's seen. Rare gram positive cocci. Gram stain electronically reported to and acknowledged by: Dr. Niraj Lewis from OR at ??12/08/2023 10:09:09 by Jacklyn Easley MLS. Removed Pleomorphic gram variable bacilli from report. Results electronically reported to and acknowledged by: [facility] [place] 12/09/2023 12:48:27. Elizabeth Schwartz MLS. (POS) [facility] Bone STRUCTURE OF LEFT FOOT / Unknown 12/08/2023 7:51 AM CDT 12/08/2023 9:00 AM CDT Comment:2. Bone first metata rsal left foot Che Palomo [facility] MICROBIOLOGY [facility] [address] [address] * (ABNORMAL) TISSUE CULTURE:INCLUDES GRAM STAIN (12/08/2023 7:51 AM CDT) Final Report Positive Culture Few METHICILLIN RESISTANT Staphylococcus aureus (MRSA) isolated. 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 For susceptibility, see previous report on culture from wound culture collected 12/07/23. Rare Corynebacterium striatum group isolated. A member of the diphtheroid bacilli. (POS) [facility] Organism METHICILLIN RESISTANT STAPHYLOCOCCUS AUREUS (MRSA)(POS) [facility] Organism CORYNEBACTERIUM STRIATUM GROUP(POS) [facility] Gram Stain Report Positive Gram stain Rare PMN's seen. Rare gram positive cocci. Gram stain electronically reported to and acknowledged by: Dr. Niraj Lewis from OR at ??12/08/2023 10:09:09 by Jacklyn Easley MLS. (POS) [facility] Tissue FOOT STRUCTURE / Unknown 12/08/2023 7:51 AM CDT Comment:Add Aerobic Narrative [facility] - 12/10/2023 2:22 PM CDT Add Aerobic Che Mullent DPM LAB MICROBIOLOGY Performing Organization Address [facility] Co de Phone Number [facility] [address] [address] * FUNGUS CULTURE:INCLUDES SUHAS (12/08/2023 7:51 AM CDT) Final Report No fungus isolated. [facility] SUHAS Prep No fungal elements seen. [facility] Tissue FOOT STRUCTURE / Unknown 12/08/2023 7:51 AM CDT Comment:Add Aerobic Narrative [facility] - 01/05/2024 8:10 AM CDT Add Aerobic Che Jonbitt DPM LAB MICROBIOLOGY Performing Organization Address [facility] Co de Phone Number [facility] [address] [address] * ANAEROBE CULTURE (12/08/2023 7:51 AM CDT) Final Report No anaerobes isolated. [facility] Tissue FOOT STRUCTURE / Unknown 12/08/2023 7:51 AM CDT Comment:Add Aerobic Narrative [facility] - 12/14/2023 9:06 AM CDT Add Aerobic Che Jonbitt DPM LAB MICROBIOLOGY Performing Organization Address [facility] Co de Phone Number [facility] [address] [address] * (ABNORMAL) POC GLUCOSE (12/08/2023 7:22 AM CDT) POC Glucose 236(H) 70 - 100 mg/dL [facility] Blood 12/08/2023 7:22 AM CDT Eusebio Vivar MD LABORATORY Performing Organization Address City/[facility]/ZIP Co de Phone Number [facility] [address] [place] [phone], * EXTRA TUBE - BLUE (12/07/2023 4:05 PM CDT) BLUE TUBE [facility] Comment:Blue top(Sodium citr ate) tubes are kept for 3 days from the collection date. Blood 12/07/2023 4:05 PM CDT 12/07/2023 4:24 PM CDT Eusebio Vivar MD LABORATORY Performing Organization Address [facility] Co de Phone Number [facility] [address] [address] * EXTRA TUBE - DARK GREEN (12/07/2023 4:05 PM CDT) DARK GREEN TUBE Stored [facility] Comment:Dark Green tubes (Li thium Heparin) are stored in the lab for 1 day from the collection date. Blood 12/07/2023 4:05 PM CDT 12/07/2023 4:24 PM CDT Eusebio Vivar MD LABORATORY Performing Organization Address [facility] de Phone Number [facility] [address] [address] * (ABNORMAL) ED CHEMISTRY LABS(NA,K,CL,CO2,GLU,CREAT,CA-IONIZED,ANION GAP) (12/07/2023 4:05 PM CDT) Pathologist [facility] Sodium 139 135 - 148 mmol/L [facility] Chloride 97 92 - 108 mmol/L [facility] AnGap 15 8 - 16 mmol/L [facility] Glucose 284(H) 70 - 100 mg/dL [facility] ICA, Actual 4.89 4.40 - 5.20 mg/dL [facility] ICA, pH Corrected 4.74 4.40 - 5.20 mg/dL [facility] Creatinine 1.26(H) 0.70 - 1.25 mg/dL [facility] BICARB 26 22 - 26 mEq/L [facility] eGFR (2020 CKD-EPI) 72 >=60 ml/min/1.7 3m2 [facility] Comment: The estimated glomerular filtration rate (eGFR) was calculated using the CKD-EPI 2020 creatinine equation, which does not include race as a factor. This equation is validated in individuals 18 years of age and older, and eGFR is normalized to a body surface area of 1.73m^2. Potassium 4.5 3.5 - 5.3 mmol/L [facility] Blood 12/07/2023 4:05 PM CDT 12/07/2023 4:27 PM CDT Eusebio Vivar MD LABORATORY [facility] [address] [address] * (ABNORMAL) CBC WITH PLTS/AUTO DIFF (12/07/2023 4:05 PM CDT) WBC 9.80 4.00 - 10.00 k/cmm [facility] RBC 4.08(L) 4.60 - 6.00 m/cmm [facility] Hgb 11.2(L) 13.1 - 17.5 g/dL [facility] Hematocrit 34.7(L) 40.0 - 51.0 % [facility] MCV 85.0 80.0 - 100.0 fL [facility] MCH 27.5 25.0 - 32.0 pg [facility] MCHC 32.3 31.0 - 36.0 g/dL [facility] RDW 13.7 11.5 - 14.5 % [facility] Plt 324 150 - 400 k/cmm [facility] MPV 9.4 6.5 - 12.5 fL [facility] Automated Abs Neutrophil 5.37 1.70 - 6.50 k/cmm [facility] Comment:Preliminary ANC, Fin al Result to Follow Abs Immature Granulocyte 0.12(H) 0.00 - 0.09 k/cmm [facility] Comment:The Immature Granulo cyte Absolute count contains metamyelocytes and myelocytes. Abs Neutrophil 5.37 1.70 - 6.50 k/cmm [facility] Abs Lymphocyte 2.61 0.80 - 4.00 k/cmm [facility] Abs Monocyte 1.32(H) 0.20 - 1.00 k/cmm [facility] Abs Eosinophil 0.34 0.00 - 0.60 k/cmm [facility] Abs Basophil 0.04 0.00 - 0.20 k/cmm [facility] Blood 12/07/2023 4:05 PM CDT 12/07/2023 4:51 PM CDT Eusebio Vivar MD LABORATORY Performing Organization Address City/[facility]/ZIP Co de Phone Number [address] [address] * LACTATE (LACTIC ACID) (12/07/2023 4:05 PM CDT) Lactate 2.1 0.7 - 2.1 mmol/L [facility] Blood 12/07/2023 4:05 PM CDT 12/07/2023 4:27 PM CDT Narrative [facility] - 12/07/2023 4:27 PM CDT Send specimen on ice! Eusebio Vivar MD LABORATORY Performing Organization Address [facility] Co de Phone Number [address] [address] * (ABNORMAL) C-REACTIVE PROTEIN (12/07/2023 4:05 PM CDT) C-Reactive Protein 82(H) <=4 mg/L [facility] Blood 12/07/2023 4:05 PM CDT 12/07/2023 4:51 PM CDT Eusebio Vivar MD LABORATORY Performing Organization Address [facility] Co de Phone Number [address] [address] * (ABNORMAL) SED RATE (ESR) (12/07/2023 4:05 PM CDT) Sed Rate 120(H) 2 - 10 mm/hr [facility] Blood 12/07/2023 4:05 PM CDT 12/07/2023 4:51 PM CDT Eusebio Vivar MD LABORATORY Performing Organization Address City/[facility] Co de Phone Number [address] [address] * BLOOD AEROBIC/ANAEROBIC CULTURE (12/07/2023 4:05 PM CDT) Final Report No growth after 5 days. [facility] Blood (Peripheral) 12/07/2023 4:05 PM CDT 12/07/2023 7:55 PM CDT Eusebio Vivar MD LAB MICROBIOLOGY [facility] [address] [place] [address] documented in this encounter Visit Diagnoses Diagnosis [...] (Due: Patch removed - Provider: JENNIFER NARAYANAN, [facility] - Comment: Time automatically adjusted [...]
--- OUTSIDE RECORDS SUMMARY | 2024-02-28 09:08 | XMS_ITS | Encounter Summary ---
Author Organization [facility] Address [address] [place] [address] Phone Care Team Providers Care Soda Dry House Operator Name Role Phone Unavailable Primary Care Provider Unavailabl e Reason for Visit * Reason Comments Post Op * Auth/Cert (Routine) Specialty Diagnoses / Procedures Referred By Katherine tidwell Referred To Contact SURGERY Diagnoses Other acute osteomyelitis of left foot ([facility]) Eusebio Vivar MD [address] [place] [address] [address] Referral ID Status Reason Start Date Expiration Date Visits Re quested Visits Authorized [id number] 1 1 Encounter Details Date Type Department Care Team ([facility] st Contact Info) Description 12/07/2023 2:30 PM CDT Office Visit [facility] [address] [address] Che Campos DPM [address] [address] 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 Confirmed last admission -XR was completed in clinic today. No additional XR needed in ED -This is a low risk surgery with known risk factors including osteomyelitis and nonhealing amputation site. Please page farm operations manager resident with any questions or concerns Chief [...] Routine 12/07/2023 3:00 PM CDT 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[facility]) documented in this encounter [...] A member of the diphtheroid bacilli. (POS) [facility] Organism METHICILLIN RESISTANT STAPHYLOCOCCUS AUREUS (MRSA)(POS) [facility] Organism CORYNEBACTERIUM STRIATUM GROUP(POS) [facility] Gram Stain Report No PMN's seen. No organisms seen. [facility] Swab STRUCTURE OF LEFT FOOT / Unknown 12/07/2023 3:00 PM CDT 12/07/2023 5:23 PM CDT Narrative [facility] - 12/10/2023 10:38 AM [...] 1: Sensitive Che Campos DPM LAB MICROBIOLOGY [facility] [address] [address] documented in this encounter Visit Diagnoses Diagnosis 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CMS/[facility]HS)- Primary Cellulitis of left lower extremity Cellulitis and abscess of leg, except foot 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CMS/[facility]) documented in this encounter Additional Health Concerns Infection Onset Date Last Indicated Resolved Time 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
--- OUTSIDE RECORDS SUMMARY | 2024-02-28 09:08 | XMS_ITS | Encounter Summary ---
Author Organization [facility] Address [address] [place] [address] Phone Care Team Providers Care Case Resource Manager Name Role Phone Unavailable Primary Care Provider Unavailabl e Reason for Visit * Auth/Cert (Routine) Specialty Diagnoses / Procedures Referred By Katherine tidwell Referred To Contact SURGERY Diagnoses Other acute osteomyelitis of left foot ([facility]) Eusebio Vivar MD [address] [place] [address] Or P4 [address] [place] [address] Referral ID Status Reason Start Date Expiration Date Visits Re quested Visits Authorized [id number] 1 1 Encounter Details Date Type Department Care Team (Late st Contact Info) Description 12/08/2023 7:28 AM CDT Anesthesia Event OR P4 [address] [place] [phone] Dontae Higgins MD [address] [place], [place] [phone] Carly Jordan MD [address] [place], [place] [phone] Anesthesia Record Procedure Summary Procedure Name Responsible [...] [facility]est[facility] type: General () Patient [...] GI - negative ROS Hematologic/Onc (+) anemia /Renal/Line Technician - negative ROS Airway Mallampati: II TM distance: >3 FB Neck ROM: full Mouth Opening: good Dental - normal exam OB Other Physical Exam Anesthesia Plan ASA 2 MAC Post-op Care: routine analgesia Anesthetic plan and risks discussed with patient. Plan discussed with PLANER OFF BEARER. Vitals: 12/08/23 0618 BP: 157/81 Pulse: 61 [...]
--- OUTSIDE RECORDS SUMMARY | 2024-02-28 09:08 | XMS_ITS | Encounter Summary ---
Author Organization [facility] Address [address] [place] [address] Phone Care Team Providers Care Field Marketing Manager Name Role Phone Unavailable Primary Care Provider Unavailabl e Reason for Visit * Auth/Cert (Routine) Specialty Diagnoses / Procedures Referred By Katherine tidwell Referred To Contact SURGERY Diagnoses Other acute osteomyelitis of left foot ([facility]) Eusebio Vivar MD [address] [place] [address] [address] Referral ID Status Reason Start Date Expiration Date Visits Re quested Visits Authorized [id number] 1 1 Encounter Details Date Type Department Care Team (Latest Contact Info) Description 12/07/2023 3:07 PM CDT - 12/07/2023 11:59 PM CDT Hospital Encounter [facility] XRAY [address] [address] Che Campos DPM [address] [phone] Discharge Disposition: Discharged to home or self [...] Routine 12/07/2023 3:23 PM CDT 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[facility]) documented in this encounter Results [...] this encounter Visit Diagnoses Diagnosis 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[facility]) documented in this encounter Additional Health Concerns Infection Onset Date Last Indicated Resolved Time 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
--- OUTSIDE RECORDS SUMMARY | 2024-02-28 09:08 | XMS_ITS | Encounter Summary ---
Author Organization [facility] Address [address] [place] [address] Phone Care Team Providers Care Radio Division Officer Name Role Phone Unavailable Primary Care [...]
--- OUTSIDE RECORDS SUMMARY | 2024-02-28 09:08 | XMS_ITS | Encounter Summary ---
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 States the patient receives dressingchanges every day on the left foot. Was transferred to [facility] to get more information 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
--- OUTSIDE RECORDS SUMMARY | 2024-02-28 09:10 | XMS_ITS | Encounter Summary ---
Author Organization [facility] Address [address] [place] [address] Phone Care Team Providers Care Slitter And Rewinder Name Role Phone Unavailable Primary Care Provider Unavailabl e Reason for Referral * Consult/Test/Treat (Urgent) - New Request Specialty Diagnoses / Procedures Referred By Contac t Referred To Contact Physical Therapy / PHYSICAL THERAPY Diagnoses 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HHS) Hyperglycemia Foot infection 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 APRN, CNP [address] [place] [address] Referral, [place] [address] Referral ID Status Reason Start Date Expiration Date V isits Requested Visits Authorized [id number] New Request 11/24/2023 11/24/2024 1 1 * Consult/Test/Treat (Routine) - New Request Specialty Diagnoses / Procedures Referred By Contac t Referred To Contact Diagnoses 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HHS) Hyperglycemia Foot infection 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 APRN, CNP [address] [place] [address] Referral, [place] [address] Referral ID Status Reason Start Date Expiration Date V isits Requested Visits Authorized [id number] New Request 11/24/2023 11/24/2024 1 1 Reason for Visit * Reason Comments Fever Penis/Scrotal Problem Toe Problem * Auth/Cert (Routine) Specialty Diagnoses / Procedures Referred By Contac t Referred To Contact SURGERY Diagnoses 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HHS) Hyperglycemia Zac Churchill MD [address] [place] [address] [address] [facility] [address] [place] [address] Referral ID Status Reason Start Date Expiration Date Visits Re quested Visits Authorized [id number] 1 1 Encounter Details Date Type Department Care Team (Latest Contact Info) Description 11/10/2023 2:28 PM CDT - 11/25/2023 12:02 PM CDT Hospital Encounter [facility] Surgery/Trauma/Chinedu ro 2 [address] [facility] [address] [place], [place] [id number] Jessica Grullon MD [address] [facility] [address] [place], [place] [address] Zac Churchill MD [address] [facility] [address] [place], [place] [address] 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HHS) Discharge Disposition: Discharged/transd to [...] encounter Discharge Summaries * 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 APRN, VP BUSINESS DEVELOPMENT - 11/25/2023 7:37 AM CDT GENERAL SURGERY DISCHARGE SUMMARY - NURSE EMERGENCY Stephanie Low : 1980 Sex: male Date of Admission: 11/10/2023 Date of Discharge: 11/25/2023 Disposition: Longterm Facility Primary care physician: No primary care provider on file. Attending Staff: Zac Churchill MD Significant physician provider(s): Jay Ibanez MD ; Doonvan Sloan MD; Che Palomo DPM; Afshan Sims [...] will follow up with 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 APRN, VP BUSINESS DEVELOPMENT Malnutrition Weight: (!) 142.9 kg (315 lb 1.6 oz) Wt Change from Previous: 0 Kg Wt Change from Admit: 2.43 Kg % Wt Change from Adm: 1.73 % Clinton Body Wt (IBW) Male (kg): 75.26 kg [...] oriented x 3. No gross focal deficits Broadcast Chief Engineer Needed: no PLANNED DISCHARGE ORDERS: Suture/[place]: None Wound Care Plan: Location: Perineal; Dressing: [...] Yes Okay for Longterm Facility standing orders? Question Response Notes OK for Longterm Facility house standing orders? Yes Other Nursing [...] or contraindicated. Resume previous standing orders per [facility] policy Order Notes Resume previous standing orders per [facility] policy Patient is on a Consistent Carbohydrate [...] 4:30PM, M-F): Call the Surgery Clinic at [phone] After hours or on Holidays: Call the [facility] system operator . Ask the system operator to page the general surgery resident semiconductor equipment technician. IF: -- you feel you are [...] -- Read all labels for prescription and Faze-wdz-uzwtsjg medicines. Ask the pharmacist if your prescription [...] Your Medications These medications were sent to [facility] Discharge Pharmacy - [place] [address] Hours: 30/11 insulin LISPRO 100 UNIT/ML Kwikpen [...] condition and treatment plan. 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 APRN, VP BUSINESS DEVELOPMENT 11/25/2023 07:37 [facility] Department of Surgery Pager: via telemediq I have spent 45 minutes with this patient today in which greater than 50% of this time was spent incounseling/coordination of care regarding in patient care, review of imaging/labs, chart review andconsultant recommendations. Dictation Disclaimer: Some notes are completed with voice-recognition dictation software. Errors are generally corrected in real time. Please contact me via [employer] staff message if you note any errors [...] - Resources for patient (select all that apply):[id number]} documented in this encounter Medications at Time [...] the discharge summary paperwork with medication orders. International Freight Forwarder opened admission encounter and re-faxed discharge paperwork to the provided fax # of [phone]. Tried a second fax # after this wasn't received, which also wasn't received. Third attempt made viaencrypter email. Confirmed received paperwork via encrypted email. Pepe Hernandez RN, 11/25/2023 9:33 PM ED Clinical Coordinator Office: [phone] TelMedIQ: ED Clinical Coordinator * Kate Harmon [...] (Arrive by 12:50 PM) with Dr Palomo ([facility]5th [facility]) since he is discharging to [place].Follows with [place] when closer to home otherwise. 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 Interval History Patient [...] CDT Preadmission Screening Submitter InformationPerson Being ReferredMedical InformationADL'Harlem Hospital CenterSubmitResults Results Thank you for submitting a [...] help, contact the Senior LinkAge Line at [phone] or click to contact us. Print this page You have successfully submitted the preadmission screening (PAS) to the Senior LinkAge Line on: Created On 11/24/2023 2:25 PM Your confirmation number is: [id number] Results Level of Care: Based on the information you provided, it appears this person meets level of care for purposes of [place] payment. OBRA: It appears this person does not need an OBRA Level II assessment. Submitter Information Form Type PAS Submitter First and Last Name Caridad Dorsey Direct Agency [facility] Service Type Hospital [address] [facility] Zip [place] [address] Is your Agency outside [place]? Person Being Admitted to Nursing Facility Legal first name Matt Last name Stephanie Date of 1980 Age 43 Gender Male Marital Status N= Never Race A = B = Black or N = or [place] P = [place] or W = White U = Unable to Determine Ethnicity Not / Currently living with: 01 Living Alone Planned living with 04 Living in Congregate Setting Housing Type Home or apartment, including assisted living () Mailing Address [address] [place] [address] [place] Code [address] [facility] Medical Information Reason for nursing facility [...] [facility] Service Type [facility]iary [address] Code [address] [place] [address] If your provider is not listed check [...] PLT 492 (H) 11/23/2023 0831 ASSESSMENT: Matt Lwo is a 43 y.o. male with PMH [...] Trend WBCs and fever Skin/Wounds: Perineal debridement ffeh-hwp-mk-dry dressings with Vashe; Left hallux amputation -Betadine with 4 x 4 DVT prophylaxis: Lovenox and SCDs Weight Bearing: Heel touch WB in surgical shoe. On the LLW Activity: Ad celia PT/OT: Appreciate Recs Disposition: [facility] on 11/24/23 pending insurance authorization 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 APRN, PATRICIA, 11/24/2023 1:43 PM [facility] Department of Surgery Pager: via FlashSoft I have spent 30 minutes with this patient today in which greater than 50% of this time was spent incounseling/coordination of care regarding in patient care, review of imaging/labs, chart review andconsultant recommendations. Dictation Disclaimer: Some notes are completed with voice-recognition dictation software. Errors are generally corrected in real time. Please contact me via [employer] staff message if you note any errors [...] time () of patient departure: 11/25/2023@1030 Destination: [address] [place] [address] Type of ride: [employer] #conformation [id number] Transportation vendor of ride (choose one below):* [facility] [phone] If this ride needs to [...] Clinical Coordinators will be informed via a TelXceive page. PCS form was completed in Progress [...] Churchill MD Insurance: [facility] Secondary insurance: [place] [employer] Height: Height: 180.3 cm (5' [...] care/Home mgmt/ADL: 18 minutes EDWIN Alvarado/Brian Pager: skyrockit OT Department Problem: Loss of [place] With ADLs, Risk for Goal: Will complete lower body dressing Description: Patient will complete lower body dressing with Modified [place] (6). Outcome: In progress Goal: Will toilet self Description: Patient will toilet self with Modified [place] (6). Outcome: In progress * Lior Azul [...] Preferred [facility] Selected Longterm [address] [place] [phone] -- Internal Comment last updated by Lior Azul 11/24/2023 0805 Pending prior auth. Lior Azul, 11/24/2023 8:05 AM Received VM saying they would accept . LVM saying we would accept bed.. Caridad Dorsey, 11/24/2023 7:50 AM Admissions is currently reviewing .Caridad Dorsey, 11/23/2023 9:31 AM No bd available until next week. Caridad Dorsey, 11/18/2023 8:34 AM [facility], [facility] ([facility]) Accepted N/A [address] [facility] [address] [phone] -- Internal Comment last updated by Lior Azul 11/24/2023 0840 They can offer us a bed here but we already found one in [place]. Lior Azul, 11/24/2023 8:40 AM [facility] Pending - Request Sent N/A [address] [facility] [address] [phone] -- Internal Comment last updated by Caridad Dorsey 11/23/2023 0937 LVM for admissions .Caridad Dorsey, 11/23/2023 9:37 AM [facility] Declined Current smoking, Bariatric N/A [address] [facility] [address] [phone] -- The Alphonse [facility], [facility] Declined Distance N/A [address] [address] [phone] -- Internal Comment last updated by Lior Azul 11/22/2023 121 This is too far from where patient lives. Lior Azul, 11/22/2023 12:18 PM Sent e mail to Allie .Caridad Dorsey, 11/22/2023 8:10 AM LVM for admissions .Caridad Dorsey, 11/19/2023 7:44 AM Sent email to Missy.Caridad Dorsey, 11/17/2023 2:24 PM [facility] Declined No Contract with Patient's Insurance Carrier N/A [address] [place] [address] [phone] -- [facility] Declined Current smoking, Ac[place] [address] [facility] [address] [phone] -- Internal Comment last updated by Caridad Dorsey 11/18/2023 0831 LVM for admissions.Caridad Dorsey, 11/18/2023 8:31 AM Nena Ernandez, [facility] Declined Bed not available N/A [address] [facility] [address] [phone] -- Internal Comment last updated by Lior Azul 11/23/2023 1415 Looking for a bed in the [facility] .Caridad Dorsey, 11/23/2023 9:35 AM LVM for admissions.Caridad Dorsey, 11/19/2023 8:17 AM LVM for admissions.Caridad Dorsey, 11/18/2023 8:37 AM [facility] Declined Bed not available N/A 117[address] [facility] [address] [phone] -- The Vianca [facility], [facility] Declined Bed not available N/A 77[address] [facility] [phone] -- The [facility], [facility] Declined Bed not available N/A [address] [facility] [address] [phone] -- Home Medical Care No active coordination exists for this encounter. * 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, CUSTOM STOCK MAKER, VP BUSINESS DEVELOPMENT - 11/23/2023 3:06 PM CDT SURGERY PROGRESS NOTE--NURSE EMERGENCY Stephanie Low : 1980 Sex: male SIGNIFICANT [...] Trend WBCs and fever Skin/Wounds: Perineal debridement chbc-rkp-hf-dry dressings with Vashe; Left hallux amputation -Betadine with 4 x 4 DVT prophylaxis: Lovenox and SCDs Weight Bearing: Heel touch WB in surgical shoe. On the LLW Activity: Ad celia PT/OT: Appreciate Recs Disposition: Postacute placement recommended-care management and social work looking for a TCU. 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 APRN, CNP, 11/23/2023 3:06 PM [facility] Department of Surgery Pager: via telemediq I have spent 30 minutes with this patient today in which greater than 50% of this time was spent incounseling/coordination of care regarding in patient care, review of imaging/labs, chart review andconsultant recommendations. Dictation Disclaimer: Some notes are completed with voice-recognition dictation software. Errors are generally corrected in real time. Please contact me via [employer] staff message if you note any errors [...] [place] Pending - Request Sent N/A [address] [facility] [address] -- Internal Comment last updated by Caridad Dorsey 11/23/2023 0931 Admissions is currently reviewing .Caridad Dorsey, 11/23/2023 9:31 AM No bd available until next week. Caridad Dorsey, 11/18/2023 8:34 AM [facility] Ern[facility], [facility] Pending - Request Sent N/A [address] [facility] [address] [phone] -- Internal Comment last updated by Lior Azul 11/23/2023 1415 Looking for a bed in the [facility] .Caridad Dorsey, 11/23/2023 9:35 AM LVM for admissions.Caridad Dorsey, 11/19/2023 8:17 AM LVM for admissions.Caridad Dorsey, 11/18/2023 8:37 AM [facility] Pending - Request Sent N/A [address] [facility] [address] [phone] -- Internal Comment last updated by Caridad Dorsey 11/23/2023 0937 LVM for admissions .Caridad Dorsey, 11/23/2023 9:37 AM [facility] Declined Current smoking, Bariatric N/A [address] [facility] [address] -- The [facility], [facility] Declined Distance N/A [address] [address] [phone] -- Internal Comment last updated by Lior Azul 11/22/2023 0942 This is too far from where patient lives. Lior Azul, 11/22/2023 12:18 PM Sent e mail to [facility] .Caridad Dorsey, 11/22/2023 8:10 AM LVM for admissions .Caridad Dorsey, 11/19/2023 7:44 AM Sent email to Missy.Caridad Dorsey, 11/17/2023 2:24 PM [facility] Declined No Contract with Patient's Insurance Carrier N/A [address] [place] [address] [phone] -- [facility] Declined Current smoking, Acuity [place] [address] [facility] [address] [phone] -- Internal Comment last updated by Caridad Dorsey 11/18/2023 0831 LVM for admissions.Caridad Dorsey, 11/18/2023 8:31 AM [facility] Declined Bed not available N/A 1175 [facility] [address] [phone] -- The [facility], [facility] Declined Bed not available N/A 7727 [facility] [address] -- The [facility], [facility] Declined Bed not available N/A [address] [facility] [address] [phone] -- Home Medical Care No active coordination exists for this encounter. * Caridad Dorsey - 11/23/2023 9:42 AM CDT Continued Care and Services - Admitted Since 11/10/2023 Destination Service Provider Request Status Selected Services Address Phone Fax Patient Preferred [facility] Pending - Request Sent N/A [address] [facility] [phone] -- Internal Comment last updated by Caridad Dorsey 11/23/2023 0931 Admissions is currently reviewing .Caridad Dorsey, 11/23/2023 9:31 AM No bd available until next week. Caridad Dorsey, 11/18/2023 8:34 AM Nena Ernandez [facility] Pending - Request Sent N/A [address] [facility] [address] -- Internal Comment last updated by Caridad Dorsey 11/23/2023 0935 Looking for a bed in the [facility] .Caridad Dorsey, 11/23/2023 9:35 AM LVM for admissions.Caridad Dorsey, 11/19/2023 8:17 AM LVM for admissions.Caridad Dorsey, 11/18/2023 8:37 AM The [facility], [facility] Pending - Request Sent N/A 5[address] [facility] [address] -- [facility] Pending - Request Sent N/A [address] [facility] [address] [phone] -- Internal Comment last updated by Caridad Dorsey 11/23/2023 0937 LVM for admissions .Caridad Dorsey, 11/23/2023 9:37 AM [facility] Declined Current smoking, Bariatric N/A [address] [facility] [address] [phone] -- The [facility], [facility] Declined Distance N/A [address] [address] [phone] -- Internal Comment last updated by Lior Azul 11/22/2023 1218 This is too far from where patient lives. Lior Azul, 11/22/2023 12:18 PM Sent e mail to Allie .Caridad Dorsey, 11/22/2023 8:10 AM LVM for admissions .Caridad Dorsey, 11/19/2023 7:44 AM Sent email to Missy.Caridad Dorsey, 11/17/2023 2:24 PM [facility] Declined No Contract with Patient's Insurance Carrier N/A [address] [place] [address] [phone] -- [facility] Declined Current smoking, [place] [address] [facility] [address] [phone] -- Internal Comment last updated by Caridad Dorsey 11/18/2023 0831 LVM for admissions.Caridad Dorsey, 11/18/2023 8:31 AM [facility] Declined Bed not available N/A 1175 [facility] [address] [phone] -- The [facility], [facility] Declined Bed not available N/A [address] [facility] [address] [phone] -- Home Medical Care No active coordination [...] mgmt/ADL: 13 minutes Chayo Townsend OTR/L Pager: skyrockit OT Department Problem: Loss of [place] With ADLs, Risk for Goal: Will complete lower body dressing Description: Patient will complete lower body dressing with Modified [place] (6). Outcome: In progress Goal: Will toilet self Description: Patient will toilet self with Modified [place] (6). Outcome: In progress * Arden Elena [...] gait with or without AD, static/dynamic balance. DUTY MANAGER Appropriate: Yes Arden Elena, DUTY MANAGER 11/22/2023 Pager: [facility] PT Dept Problem: Decreased Transfer Skills Goal: Patient will transfer sit to/from stand Description: Patient will transfer sit to/from stand while Heel touch WB on L LE in post-op shoe with (6) Modified [place] in order to mobilize in home by [...] 12:09 PM CDTSummary: DC Planning DC Planning [facility] SABINE Hartamn - O: [phone] Retirement RN is calling her asking her [...] agrees with sending referrals to SNFs around [place]. He wants CC to let sister know [...] bedtime. -Continue Amlodipine 10mg Daily - Resume DUTY MANAGER losartan 50mg PO Daily when Cr is closer to baseline (1.0) Acute Kidney Injury Monitor urine output and BMP closely. Paranoid schizophrenia - continue group captain escitalopram 20mg qhs, trazodone 50mg qhs, prazosin 1mg qhs (ordered) - receives outpatient paliperidone (Invega) IM every 4 weeks for schizophrenia at [facility], unclear when last dose was. Would give [...] the patient on the date of the insurance underwriter's note. I discussed with the insurance underwriter of the note and agree with their findings and plan documented in the insurance underwriter's note from above. Any revisions by [...] bedtime. -Continue Amlodipine 10mg Daily - Resume DUTY MANAGER losartan 50mg PO Daily when Cr is closer to baseline (1.0) Acute Kidney Injury Monitor urine output and BMP closely. Paranoid schizophrenia - continue group captain escitalopram 20mg qhs, trazodone 50mg qhs, prazosin 1mg qhs (ordered) - receives outpatient paliperidone (Invega) IM every 4 weeks for schizophrenia at [facility], unclear when last dose was. Would give [...] admitted on 11/10/2023 as a transfer from [facility] for emergent surgical debridement for demar's gangrene. [...] are above goal here (FPG goal <150). DUTY MANAGER lantus 30 units BID, lispro 10 units TID AC, metformin 500mg BID. A1c 6.8% on 07/27/23. Complications include h/o diabetes related infections. Hold DUTY MANAGER metformin while admitted. Continue statin. 11/12 got 25u lantus (<0.2/kg) and 35u aspart. Likely needs increase in insulin dosing but also use caution with impaired renal clearance / worsening renal function and this can contribute to hypoglycemia. Serum glucose levels are slightly improved on DUTY MANAGER regimen of 30 U daily Lantus. [...] by facility provider. Paranoid schizophrenia - restarted DUTY MANAGER meds (escitalopram 20mg qhs, trazodone 50mg [...] outpatient on 11/25 or 2 Resume patient's DUTY MANAGER losartan 50mg PO daily when Cr is closer to baseline (approx 1.0) Strict I/O, monitor UOP. Avoid nephrotoxins (IV contrast, NSAIDs), renal dosing of meds Medicine service will sign off. Please page Hospitalist Consult A on telmediChango for any further issues or questions. SUBJECTIVE/Events of Past 24 Hours: Hospital Day: 11 Mr Low feels well today. Denies any symptoms. Pain controlled. He believes postoperative dressing changes can be done by his current penitentiary; I encouraged him to discuss that with his primary team and case preparer and liner. Amenable to plan, looking forward to leaving [...] today 11/19. Labs reviewed Scar Leyva MD [facility] Medicine * Paula Black DPM - [...] standpoint. Patient follows with Dr Hayden in [facility] and would prefer to follow up with him upon discharge. We are happy to schedule anappointment with patient if he wishes to follow up with our team. 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 Interval History Patient [...] IM every 4 weeks for schizophrenia at [facility], unclear when last dose was. Would give [...] admitted on 11/10/2023 as a transfer from [facility] for emergent surgical debridement for demar's gangrene. [...] are above goal here (FPG goal <150). DUTY MANAGER lantus 30 units BID, lispro 10 units TID AC, metformin 500mg BID. A1c 6.8% on 07/27/23. Complications include h/o diabetes related infections. Hold DUTY MANAGER metformin while admitted. Continue statin. 11/12 got 25u lantus (<0.2/kg) and 35u aspart. Likely needs increase in insulin dosing but also use caution with impaired renal clearance / worsening renal function and this can contribute to hypoglycemia. Serum glucose levels are slightly improved on DUTY MANAGER regimen of 30 U daily Lantus. Serum glucose levels better controlled today and more consistent in the 126 - 165 range. Continue current dosing for now with monitoring of serum glucose levels. Paranoid schizophrenia - restarted DUTY MANAGER meds (escitalopram 20mg qhs, trazodone 50mg qhs, prazosin 1mg qhs). Given paliperidone (Invega) IM on 11/12/23 (due every 4 weeks for schizophrenia) Tobacco use - offer nicotine patches, gum, lozenges while inpatient H/o TBI Obesity RECOMMENDATIONS 11/15/23 Continue Lantus to 30 U qd Continuing amlodipine, monitoring BP to determine if second agent needed with recent improvement Resume patient's DUTY MANAGER losartan 50mg PO daily when Cr is closer to baseline (likely ~1.0) Strict I/O, monitor UOP. Avoid nephrotoxins (IV contrast, NSAIDs), renal dosing of meds Medicine service will sign off tomorrow 11/20 if clinical stability/improvement continues. Please page Hospitalist Consult A on [employer] for any further issues or questions. SUBJECTIVE/Events [...] are above goal here (FPG goal <150). DUTY MANAGER lantus 30 units BID, lispro 10 units TID AC, metformin 500mg BID. A1c 6.8% on 07/27/23. Complications include h/o diabetes related infections. Hold DUTY MANAGER metformin while admitted. Continue statin. 11/12 got 25u lantus (<0.2/kg) and 35u aspart. Likely needs increase in insulin dosing but also use caution with impaired renal clearance / worsening renal function and this can contribute to hypoglycemia. Serum glucose levels are slightly improved on DUTY MANAGER regimen of 30 U daily Lantus. One reading of 69 yesterday - unclear if patient had any symptoms. Continue current dosing for now with monitoring of serum glucose levels. Paranoid schizophrenia - restarted DUTY MANAGER meds (escitalopram 20mg qhs, trazodone 50mg qhs, prazosin 1mg qhs). Given paliperidone (Invega) IM on 11/12/23 (due every 4 weeks for schizophrenia) Tobacco use - offer nicotine patches, gum, lozenges while inpatient H/o TBI Obesity RECOMMENDATIONS 11/15/23 Continue Lantus to 30 U qd Continuing amlodipine, monitoring BP to determine if second agent needed with recent improvement Resume patient's DUTY MANAGER losartan 50mg PO daily when Cr is closer to baseline (likely ~1.0) Strict I/O, monitor UOP. Avoid nephrotoxins (IV contrast, NSAIDs), renal dosing of meds Medicine will continue to follow. Please page Hospitalist Consult A on [employer] for any further issues or questions. SUBJECTIVE/Events [...] today 11/18. Labs reviewed Scar Leyva MD [facility] Medicine * Kenrick Fisher Chi, PT - 11/19/2023 1:21 PM CDT Physical Therapy Patient not seen today d/t prioritisation/time constraints. Kenrick Fisher PT License #[id number] PT Tel #: [phone] On [employer]BOT or [employer] * Nicola Vasquez MD - 11/19/2023 11:54 [...] IM every 4 weeks for schizophrenia at [facility], unclear when last dose was. Would give [...] ID PROGRESS NOTE Matt Low 1980 Male [id number] ASSESSMENT: # Necrotizing fascitis/Demar's gangrene s/p debridement # Left hallux gangrene s/p definitive amputation # Type II diabetes mellitus 43 y.o. male pmhx of T2DM with prior right toe amputations [facility] s/p [facility]&D x 2, currently on [...] 1 of 2 Imaging results: Reviewed in [facility] Gulshan José MD ID fellow, PGY-4 [...] CDT 11/19/23 1038 Rapid Rounds Attendance Charge nurse;staffing account manager;ground worker Expected Discharge Disposition SNF (TCU) Today [...] mgmt/ADL: 23 minutes Chayo Townsend, OTR/L Pager: [facility] OT Department Problem: Loss of [place] With ADLs, Risk for Goal: Will complete lower body dressing Description: Patient will complete lower body dressing with Modified [place] (6). Outcome: In progress Goal: Will toilet self Description: Patient will toilet self with Modified [place] (6). Outcome: In progress * Paula Black [...] standpoint. Patient follows with Dr Hayden in [facility] and would prefer to follow up with him upon discharge. We are happy to schedule anappointment with patient if he wishes to follow up with our team. 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 Interval History Patient [...] physician: No primary care provider on file. aSmina Singletary DPM, 11/19/2023 5:15 AM Podiatric Surgery [...] mgmt/ADL: 35 minutes Chayo Townsend OTR/L Pager: [facility] OT Department Problem: Loss of [place] With ADLs, Risk for Goal: Will complete lower body dressing Description: Patient will complete lower body dressing with Modified [place] (6). Outcome: In progress Goal: Will toilet self Description: Patient will toilet self with Modified [place] (6). Outcome: In progress * Kenrick Fisher Chi, PT - 11/18/2023 3:23 PM CDT Problem: Decreased Transfer Skills Goal: Patient will transfer sit to/from stand Description: Patient will transfer sit to/from stand while Heel touch WB on L LE in post-op shoe with (6) Modified [place] in order to mobilize in home by [...] up. Reconfirmed that he lives in an [facility]- a 1 floor building. Has his own room w a toilet inside. He shares bathing facilities wother residents in the house. He eats his meals and snacks in the dining room. He has NO stairs to negotiate. O:Broadcast Chief Engineer Used: None needed Mental Status Mental Status: [...] remain heel touch WB on L LE. DUTY MANAGER Appropriate: Yes Kenrick Fisher PT 11/18/2023 [...] are above goal here (FPG goal <150). DUTY MANAGER lantus 30 units BID, lispro 10 units TID AC, metformin 500mg BID. A1c 6.8% on 07/27/23. Complications include h/o diabetes related infections. Hold DUTY MANAGER metformin while admitted. Continue statin. 11/12 got 25u lantus (<0.2/kg) and 35u aspart. Likely needs increase in insulin dosing but also use caution with impaired renal clearance / worsening renal function and this can contribute to hypoglycemia. Serum glucose levels are slightly improved today with increase in Lantus to 28 U; increasing today to DUTY MANAGER dose of 30 U Lantus daily. Paranoid schizophrenia - restarted DUTY MANAGER meds (escitalopram 20mg qhs, trazodone 50mg qhs, prazosin 1mg qhs). Given paliperidone (Invega) IM on 11/12/23 (due every 4 weeks for schizophrenia) Tobacco use - offer nicotine patches, gum, lozenges while inpatient H/o TBI Obesity RECOMMENDATIONS 11/15/23 Increased Lantus to 30 U qd Continuing amlodipine, carvedilol discontinued as patient noted some dizziness and BP now near goal. Resume patient's DUTY MANAGER losartan 50mg PO daily when Cr is closer to baseline (likely ~1.0) Strict I/O, monitor UOP. Avoid nephrotoxins (IV contrast, NSAIDs), renal dosing of meds Medicine will continue to follow. Please page Hospitalist Consult A on [facility] for any further issues or questions. SUBJECTIVE/Events of Past 24 Hours: Hospital Day: 8 Mr Low feels good today; more relaxed. Pain controlled. Hoping for discharge soon; he's curiousif his sister might be able to take him home tomorrow, or potentially to a facility (?[facility]?) for extra cares and assistance OBJECTIVE: [...] today 11/17. Labs reviewed Scar Leyva MD [facility] Medicine * Jabari Colby, RN - [...] Services Address Phone Fax Patient Preferred [facility] Facility Pending - Request Sent N/A [address] [address] [phone] -- Internal Comment last updated by Caridad Dorsey 11/19/2023 0745 LVM for admissions .Caridad Dorsey, 11/19/2023 7:44 AM Sent email to [place].Caridad Dorsey, 11/17/2023 2:24 PM [facility] Facility Pending - Request Sent N/A [address] [facility] [address] [phone] -- Internal Comment last updated by Caridad Dorsey 11/19/2023 0818 LVM for admissions.Caridad Dorsey, 11/19/2023 8:17 AM LVM for admissions.Caridad Dorsey, 11/18/2023 8:37 AM [facility] Declined N/A [address] [facility] [address] -- [facility] Declined No Contract with Patient's Insurance Carrier N/A [address] [place] [id number] [phone] -- [facility] Declined Current smoking, Acuity too high N/A [id number] [facility] [id number] -- Internal Comment last updated by Caridad Dorsey 11/18/2023 0831 LVM for admissions.Caridad Dorsey, 11/18/2023 8:31 AM [facility] Declined Bed not available N/A [address] [facility] [phone] -- Internal Comment last updated by Caridad Dorsey 11/18/2023 0834 No bd available until next week. Caridad Dorsey, 11/18/2023 8:34 AM [facility] Declined Bed not available N/A [address] [facility] [address] [phone] -- Home Medical Care No active coordination exists for this encounter. 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 male pmhx of T2DM with prior right toe amputations [facility] [place] [facility], s/p I&D x 2, [...] 11/17/[address] Mullen-operative note available in [employer] Seen this a.m. and was quite sleepy. [...] 1 of 2 Imaging results: Reviewed in [facility] Gulshan José MD, 11/18/2023 8:26 AM [...] standpoint. Patient follows with Dr Hayden in [facility] and would prefer to follow up with him upon discharge. We are happy to schedule anappointment with patient if he wishes to follow up with our team. 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 Patient was discussed with semiconductor equipment technician staff, Interval History Patient was seen [...] IM every 4 weeks for schizophrenia at [facility], unclear when last dose was. Would give [...] renal dysfunction, though UOP is acceptable. Holding DUTY MANAGER losartan 50mg daily. Started amlodipine 10 [...] are above goal here (FPG goal <150). DUTY MANAGER lantus 30 units BID, lispro 10 units TID AC, metformin 500mg BID. A1c 6.8% on 07/27/23. Complications include h/o diabetes related infections. Hold DUTY MANAGER metformin while admitted. Continue statin. 11/12 [...] and diet improve. Paranoid schizophrenia - restarted DUTY MANAGER meds (escitalopram 20mg qhs, trazodone 50mg [...] carvedilol and amlodipine as above Resume patient's DUTY MANAGER losartan 50mg PO daily when Cr is closer to baseline (likely ~1.0) Switching to IV PRN hydralazine for more aggressive BP control Strict I/O, monitor UOP. Avoid nephrotoxins (IV contrast, NSAIDs), renal dosing of meds Medicine will continue to follow. Please page Hospitalist Consult A on [facility] [facility] for any further issues or questions. SUBJECTIVE/Events [...] check back tomorrow. Shannan Partida OTR/Brian Pager: [phone] * Mabel Mathews RN - 11/17/2023 11:27 AM CDT TRANSFER IN NOTE D: Patient transferred in to STNU 2 from PACU at 1100. Patient condition on arrival: Stable, a/o X4, VSS, on RA, . Patient Belonging 11/10/2023 1440 Reason for Inventory: ED/APS Admission Patient or family informed of Patient Valuables and Belongings Policy (#[id number]): Due to patient condition, [facility] staff will inventory and secure patient valuables [...] AM CDT 11/17/231033 Rapid Rounds Attendance Physician;Charge nurse;staffing account manager;ground worker;Bedside nurse Expected Discharge Disposition SNF (TCU for wound care) Today we still await: Procedure (Comment) (toe amputation today) Case Management Discharge Milestones Documentation CM Assessment Completed? Yes Patient/Family agree w/DC plan? Yes Transportation Plan WC/Taxi/Stretcher Prior Auth/Pre-Admit Screen (!) Not completed 11/17/231033 Rapid Rounds Attendance Physician;Charge nurse;staffing account manager;ground worker;Bedside nurse Expected Discharge Disposition SNF (TCU [...] discharge. Patient follows with Dr Hayden in [facility] CHIEF COMPLAINT: Immediate postop HISTORY OF [...] IM every 4 weeks for schizophrenia at [facility], unclear when last dose was. Would give [...] Fisher, PT License #[id number] PT Tel #: [phone] On [employer] or [employer] * Nico Hogue MD - 11/16/2023 9:49 [...] Actinomyces species Medicine consult (11/14): Resume patient's DUTY MANAGER losartan 50mg PO daily when Cr [...] IM every 4 weeks for schizophrenia at [facility], unclear when last dose was. Would give dose here if due and if available on formulary. Tobacco use - offer nicotine patches, gum, lozenges while inpatient - cessation counseling as able Neuro/Pain Control: Multimodal -Scheduled: Tylenol, Gabapentin, cyclobenzaprine, Lexapro, Trazodone -PRN: Hydromorphone Skin/Wounds: Dressing changed (11/13) DVT prophylaxis: SCDs, Lovenox 40 BID (11/11) Weight Bearing: WBAT Activity: Ad cleia/with assist Disposition: Nico Murray MD, 11/16/2023 9:49 [...] are above goal here (FPG goal <150). DUTY MANAGER lantus 30 units BID, lispro 10 units TID AC, metformin 500mg BID. A1c 6.8% on 07/27/23. Complications include h/o diabetes related infections. Hold DUTY MANAGER metformin while admitted. Continue statin. 11/12 [...] renal dysfunction, though UOP is acceptable. Holding DUTY MANAGER losartan 50mg daily. Agree with prn hydralazine but would changeto PO. Could start new agent (such as amlodipine) but patient should ultimately resume ARB once renal function is improved Paranoid schizophrenia - restarted DUTY MANAGER meds (escitalopram 20mg qhs, trazodone 50mg qhs, prazosin 1mg qhs). Given paliperidone (Invega) IM on 11/12/23 (due every 4 weeks for schizophrenia) Tobacco use - offer nicotine patches, gum, lozenges while inpatient H/o TBI Obesity RECOMMENDATIONS 11/15/23 Continue Lantus 28 U daily for now; may need to continue titration as diet and Resume patient's DUTY MANAGER losartan 50mg PO daily when Cr [...] follow. Please page Hospitalist Consult A on [facility] for any further issues or questions. SUBJECTIVE/Events [...] at baseline. Labs reviewed Scar Leyva MD [facility] Medicine * Chayo Townsend, OTR/L - [...] walk in hallway- pt tends to picking machine operator walker versus push- does not use [...] provide clear picture of assistance available at [facility]- however, per chart review only receives assistance [...] Pager: Lisa OT Department Problem: Loss of [place] With ADLs, Risk for Goal: Will complete lower body dressing Description: Patient will complete lower body dressing with Modified [place] (6). 11/15/2023 1400 by Chayo Townsend OTR/Brian Outcome: In progress 11/15/2023 1357 by Chayo Townsend OTR/Brian Outcome: In progress Goal: Will toilet self Description: Patient will toilet self with Modified [place] (6). 11/15/2023 1400 by Chayo Townsend OTR/Brian Outcome: In progress 11/15/2023 1357 by Chayo Townsend OTR/Brian Outcome: In progress * Kenrick Fisher Chi, PT - 11/15/2023 11:23 AM CDT Images from the original note were not included. Problem: Decreased Transfer Skills Goal: Patient will transfer sit to/from stand Description: Patient will transfer sit to/from stand with (6) Modified [place] in order to mobilize in home by 11/28/23. Outcome: In progress Problem: Decreased Ambulatory Skills Goal: Improve gait Description: Ambulate 100 meters using No assistive devices with (6) Modified [place] in orderto mobilize in home and community [...] transfer supine to/from sit with (6) Modified [place] in order to mobilize in/out of bed [...] be good for someone to contact his ASSISTED to see what kind of help he gets/can get from ASSISTED staff and if he needs to do [...] vs try no AD. Try stairs eventually? DUTY MANAGER Appropriate: Yes Kenrick Fisher, PT 11/15/2023 [...] Actinomyces species Medicine consult (11/14): Resume patient's DUTY MANAGER losartan 50mg PO daily when Cr [...] IM every 4 weeks for schizophrenia at [facility], unclear when last dose was. Would give [...] Crawford LGSW - 11/15/2023 9:39 AM CDT Brand Leader Progress Note Spoke to SABINE Hartman at [facility], where patient resides. Informed her pt will likely be ready for discharge towards the end of the week per MDR. Asked if they are able to assist with daily wound care. Unfortunately facility cannot help with this. The facility helps with med management, meals, housekeeping, and laundry. May have to explore options for home health or TCU for woundcare. [facility] - [phone] opt 3. Dominga Crawford LGSW, 11/15/2023 2:59 [...] the OT plan of care. Chayo Townsend OTR/Brina, 11/15/2023 9:02 AM * Shani Shaw MD [...] are above goal here (FPG goal <150). DUTY MANAGER lantus 30 units BID, lispro 10 units TID AC, metformin 500mg BID. A1c 6.8% on 07/27/23. Complications include h/o diabetes related infections. Hold DUTY MANAGER metformin while admitted. Continue statin. 11/12 got 25u lantus (<0.2/kg) and 35u aspart. Likely needs increase in insulin dosing but also use caution with impaired renal clearance / worsening renal function and this can contribute to hypoglycemia. HTN - above goal overnight. ARB is being held. Also may be hypervolemic given renal dysfunction, though UOP is acceptable. Holding DUTY MANAGER losartan 50mg daily. Agree with prn hydralazine but would changeto PO. Could start new agent (such as amlodipine) but patient should ultimately resume ARB once renal function is improved Paranoid schizophrenia - restarted DUTY MANAGER meds (escitalopram 20mg qhs, trazodone 50mg qhs, prazosin 1mg qhs). Given paliperidone (Invega) IM on 11/12/23 (due every 4 weeks for schizophrenia) Tobacco use - offer nicotine patches, gum, lozenges while inpatient H/o TBI Obesity RECOMMENDATIONS 11/15/23 Increase lantus to 28 units q24h Resume patient's DUTY MANAGER losartan 50mg PO daily when Cr is closer to baseline (likely ~1.0) Recommend hydralazine 10mg PO q6h prn for SBP >180 Strict I/O, monitor UOP. Avoid nephrotoxins (IV contrast, NSAIDs), renal dosing of meds Medicine will continue to follow. Please page Hospitalist Consult A on [facility] [facility] for any further issues or questions. SUBJECTIVE/Events [...] - 11/14/2023 2:55 PM CDT SURGERY PROGRESS NOTE--NURSE EMERGENCY Matt Low : 1980 Sex: male SIGNIFICANT [...] IM every 4 weeks for schizophrenia at [facility], unclear when last dose was. Would give [...] assist Disposition: CHRIS Cordero Ma MS3 11/14/2023 [facility] Department of Surgery Pager: via telemediq [...] are above goal here (FPG goal <150). DUTY MANAGER lantus 30 units BID, lispro 10 units TID AC, metformin 500mg BID. A1c 6.8% on 07/27/23. Complications include h/o diabetes related infections. Hold DUTY MANAGER metformin while admitted. Continue statin. 11/12 got 25u lantus (<0.2/kg) and 35u aspart. Likely needs increase in insulin dosing but also use caution with impaired renal clearance / worsening renal function and this can contribute to hypoglycemia. HTN - above goal overnight. ARB is being held. Also may be hypervolemic given renal dysfunction, though UOP is acceptable. Holding DUTY MANAGER losartan 50mg daily. Agree with prn hydralazine but would changeto PO. Could start new agent (such as amlodipine) but patient should ultimately resume ARB once renal function is improved Paranoid schizophrenia - restarted DUTY MANAGER meds (escitalopram 20mg qhs, trazodone 50mg [...] follow. Please page Hospitalist Consult A on [facility] [facility] for any further issues or questions. SUBJECTIVE/Events [...] species 11/10/2023 1713 11/12/2023 1417 ANAEROBE CULTURE [[id number]] (Abnormal) Tissue from Perineal 2:Perineal tissue Preliminary result Component Value Preliminary Report Positive Culture Many mixed anaerobes present. Culture in progress. POS 11/10/2023 1713 11/12/2023 1441 TISSUE CULTURE:INCLUDES GRAM STAIN [[id number]] (Abnormal) Tissue from Perineal 2:Perineal tissue Preliminary [...] POS 11/10/2023 1712 11/12/2023 1416 ANAEROBE CULTURE [[id number]] (Abnormal) Swab from Perineal 1: Perineal tissue swab Preliminary result Component Value Preliminary Report Moderate Anaerococcus vaginalis isolated. Culture in progress. POS Organism ANAEROCOCCUS VAGINALIS POS 11/10/2023 1712 11/12/2023 1534 WOUND CULTURE:GRAM STAIN OPTIONAL [[id number]] (Abnormal) Swab from Perineal 1: Perineal tissue [...] IM every 4 weeks for schizophrenia at [facility], unclear when last dose was. Would give [...] Demar's Gangrene Necrotizing fasciitis Transferred from [facility] for scrotal swelling, pain, concern for Demar's [...] IM every 4 weeks for schizophrenia at [facility], unclear when last dose was. Would give [...] Disposition: Nico Murray MD, 11/13/2023 8:25 AM [facility] Department of Surgery Pager: via telemediq [...] Type 2 DM with neuropathy, retinopathy - DUTY MANAGER lantus 30 units BID, lispro 10 units TID AC, [id number] BID. A1c 6.8% on 07/27/23. Complications include h/o diabetes related infections. Hold DUTY MANAGER metformin while admitted. Continue statin. HTN - mostly at goal off antihypertensives. Holding DUTY MANAGER losartan 50mg daily Paranoid schizophrenia - restarted DUTY MANAGER meds (escitalopram 20mg qhs, trazodone 50mg [...] follow. Please page Hospitalist Consult A on [email or web address] for any further issues or questions. SUBJECTIVE/Events [...] recent) Gala Salinas, PharmD 11/12/2023 14:59 Pager: ([facility]) * Gracia Kumar, RN - 11/12/2023 1:00 PM CDT 11/12/23 1504 Broadcast Chief Engineer Used. Broadcast Chief Engineer Used None needed (interview conducted with AL staff) Social Information Living Situation senior care Facility Admitted From hospital (Admitted from [facility]) Name of facility [facility] Patient medically appropriate to transfer back to outside hospital? No Patient Identified Support System AL staff Services Receiving BREAK UP WORKER / Skilled Services;Case Management;Waivered services (see comment) Complex Medical Needs Other (see comment) Transportation Used for Discharge wound care Safety Concerns None Behavioral Health Concerns None Patient Family Goals Patient's Discharge Goal back to AL Family's Discharge Goal no family Plan/Interventions Expected Discharge Disposition Retirement Was Patient Choice Provided? No Who was Choice Provided to? Other (comment) (pt will return to DUTY MANAGER facility when medically stable) Patient Information Verification Verified demographic information, including SSN, Next of Kin, and Guardianship Yes Verified PCP Yes If post-acute placement is needed, have vaccination status needs been addressed? Yes Pt admitted from [facility] of Demar's gangrene of perineal area * Nico Hogue MD - 11/12/2023 8:02 AM CDT SURGERY PROGRESS NOTE--NURSE EMERGENCY Matt Thibodeaux Daryamaryzena : 1980 Sex: male [...] Disposition: Nico Murray MD, 11/12/2023 8:03 AM [facility] Department of Surgery Pager: via telemediq [...] Comments: RN: Gloria Velez RN Extension #: [phone] * Robert Kruse MDIV - 11/11/2023 1:43 PM CDT SPIRITUAL CARE VISIT SUMMARY Matt Low : 1980 Sex: male LOS: 1 day Reason for visit: Referral Assessment: Pt/family uncertain/anxious/frustrated;Pt/family coping/relieved Intervention: Compassionate support;Facilitate communication;Lead/support spiritual rituals Outcome: Situation assessed;Gratitude expressed;Ritual provided Notes: I met with Matt at bedside during rounds. Matt shared that he wanted a prayer for healing and oriental orthodox of his health which I offered as requested. He had no other support needs at this time. Plan: Spiritual Care Team is available to support patient and family as needed via number [phone]. Robert Kruse MDIV, 11/11/2023 1:43 PM Number: [phone] * Hannah Boland RT - 11/11/2023 12:40 [...] informed of Patient Valuables and Belongings Policy (#[id number]): Due to patient condition, [facility] staff will inventory and secure patient valuables Items Needing Securement: Cell phone Cell Phone Secured?: Yes Cell Phone Visually Damaged: Yes Patient Belongings: Clothing Clothing Comments: shirt, 1 shoe, 1 sock, * Gracia Tirado MDIV - 11/10/2023 3:26 PM CDT Ethnoarchaeology Professor Stabilization Room Note Matt Low : 1980 Sex: male LOS: 0 days Initial Description: Matt Low with history of gangrene. Pt was responding appropriately to questions. Patient and Family Context: No family present. Pt came from a facility in [place]. Plan: Spiritual Care Team is available to support patient and family as needed via number [phone]. Grcaia Tirado MDIV, 11/10/2023 3:27 PM Number: [phone] * Camilla Treviño, PharmD - 11/10/2023 2:38 [...] with prior right toe amputations transferred from [facility] with Demar's gangrene admitted on 11/09 for [...] for 2 days. He was transferred from [place] for Demar's gangrene. He has a history [...] the patient on the date of the insurance underwriter's note. I discussed with the insurance underwriter of the note and agree with their findings and plan documented in the insurance underwriter's note from above. Any revisions by [...] medications. Assessment: Pertinent points to note: -- DUTY MANAGER losartan, metformin and ibuprofen all discontinued [...] pharmacist on service at [facility] ([employer]) [phone]. If no response within needed timeframe, please contact central pharmacy via phone at [phone]. Planned discharge medications are: Medication List Medications [...] 2 Diabetes Reduced from twice daily dosing DUTY MANAGER, per Medicine recommendations. insulin LISPRO 100 UNIT/ML Kwikpen Commonly known as: HumaLOG KwikPen Inject 6 UNITS subcutaneously 3 times daily before meals. Reduced from 10 units per dose DUTY MANAGER, per Medicine recommendations. Invega Sustenna 156 [...] follow. Patient follows with Dr Hayden in [place] DUTY MANAGER Please page semiconductor equipment technician resident with questions. Patient was seen with semiconductor equipment technician staff, Dr. Black CHIEF COMPLAINT: Left hallux wound HISTORY OF PRESENT ILLNESS: Matt Low is a 43 y.o. male presenting with left hallux necrosis. Patient initially presented to [facility] for concern for foreigners gangrene on 11-09. [...] 74.09 Activity Intolerance Z 73.89 PRECAUTIONS [place] [employer] Chief Engineer Used: None needed ACTIVITY Up ad Celia [...] Type 2 DM with neuropathy, retinopathy - DUTY MANAGER lantus 30 units BID, lispro 10 units TID AC, [id number] BID. A1c 6.8% on 07/27/23. Complications include h/o diabetes related infections. Hold DUTY MANAGER metformin while admitted. Continue statin. HTN - mostly at goal off antihypertensives. Holding DUTY MANAGER losartan 50mg daily Paranoid schizophrenia - restarted DUTY MANAGER meds (escitalopram 20mg qhs, trazodone 50mg qhs, prazosin 1mg qhs). Given paliperidone (Invega) IM on 11/12/23 (due every 4 weeks for schizophrenia) Tobacco use - offer nicotine patches, gum, lozenges while inpatient Medical History No past medical history on file. SOCIAL HISTORY Information gathered from: Patient Home: [facility] in [place] Prior level of function: independent Baseline Ambulation: [...] Status: Oriented X 3, Alert, and Cooperative, [facility] Follows Direction: Yes, 1step OBJECTIVE Initial [...] notes. A&Ox3, but thought at hospital in [facility]. Anticipate pt will be able to [...] when ready, stairs as able, standing balance. DUTY MANAGER Appropriate: Yes Participated in goal setting and treatment planning: Patient Agrees with goals and treatment plan: Patient - Yes. Che Garcia, PT 11/14/2023 Pager: Lisa PT Department * Guru Franco MD - 11/13/2023 1:14 PM CDTAssociated Order(s): CONSULT TO INFECTIOUS DISEASE ID-2 NEW CONSULT NOTE Matt Low 1980 male [id number] REASON FOR CONSULT: I was asked to see Matt Thibodeaux Daryabailey by Zac Churchill regarding Demar's gangrene. ASSESSMENT: 43 y.o. 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, [...] tissue fungal cx Imaging [facility]: [facility] 11/13/2023 1:14 PM FACULTY [...] to month and year; not to place [facility] [email or web address] [facility]; intermittently follows 1 steps commands; confused [...] Eval: 18 minutes Therapist: EDWIN Alvarado/Brian Pager: [email or web address] Occupational Therapy Department * Sophie Barajas MD - 11/12/2023 10:07 AM CDTAssociated Order(s): CONSULT TO MEDICINE SERVICES INTERNAL MEDICINE CONSULT- STAFF Matt Low : 1980 Sex: male Reason for Consult: Diabetes management, antibiotic selection IMPRESSION AND RECOMMENDATIONS: Demar's Gangrene Necrotizing fasciitis Transferred from [facility] for scrotal swelling, pain, concern for Demar's [...] IM every 4 weeks for schizophrenia at [facility], unclear when last dose was. Would give [...] enough to participate indiscussion. Transferred from [facility] for scrotal pain and swelling, concern for [...] including pre-visit review of separately obtained history, [id number] interaction performing medically appropriate physical exam, patientcounseling/education, interpretation of diagnostic results, care coordination and documentation was60 minutes. documented in this encounter OR Notes * OR Surgeon - hCe Palomo DPM - 11/17/2023 10:32 AM CDT [...] 3:41 PM CDT Operative Report - PGY2 [facility] Matt Anne : 1980 Sex: M [...] 6:07 PM CDT OPERATIVE REPORT - PGY5 [facility] Matt Low : 1980 Sex: male [...] PM CDT Pt BIBA as transfer from [place]. 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 Pt given Ertapenem 1gm and Insulin 10 units DUTY MANAGER. BS 400 at outside hospital. Pt [...] Physical Therapy Inpatient Discharge Summary Stephanie Low [id number] PT Discharge Recommendations DC Recommendations: Post-acute placement [...] LE in post-op shoe with (6) Modified [place] in order to mobilize in home by [...] Therapist: Kenrick Fisher, PT Date: 11/24/2023 Pager: [email or web address] PT Department * Discharge non-MD/non-MIRI Summaries - Lior Azul - 11/25/2023 7:36 AM CDT Summary: DC to SNF Care Coordination Discharge Note Expected DC Date: 11/25/23 Expected DC Time: 13h30 Final Discharge Destination: Selected Continued Care - Admitted Since 11/10/2023 Destination Coordination complete. Service Provider Selected Services Address Phone Fax Patient Preferred [facility] [id number] [facility] [phone] -- Summary: Insurance approved Patient has been accepted to continue rehabing at the aforementioned post acute facility. Patient is on board with plan. CC spoke with patient in person in the room International Freight Forwarder also confirmed with Minnie REGALADO at . Also, DC summary faxed to [phone], via [employer]. WC ride has been ordered. LIFT TRUCK MECHANIC (Reservation Agent Business Case Analyst) will schedule. Check [id number] for confirmation. Medical team is aware. They will work writing DC orders. CC sent DC orders to SNF by Epic fax. Medical team is aware any controlled substances must be printed and signed to be sent in physical form to the TCU. PLEASE MAKE SURE RX IS COMPLETE. MAKE SURE QUANTITY IS ADDED. Also, PSC/SOLDERER BARREL RIBS/RN will fax it to TCU olga (this is required so in case of pain during transport, pain control can be addressed) Bedside nurse: please confirm this is done. A [employer] thread has been started. CC will continue to follow until DC. Please use [employer] for any further questions. * Nursing Assessment [...] Townsend, OTR/L - 11/24/2023 12:59 PM CDT [facility] Occupational Therapy Discharge Summary Stephanie Low 11/24/2023 [...] subacute rehab. Patient Name: Stephanie Low MR#: [id number] Date of : 1980 Age: 43 y.o. [...] penitentiary (11/13/23 1100) Prior Level of Function (DUTY MANAGER): ADLs/IADLs: Received assistance from staff at [...] RN - 11/23/2023 4:39 PM CDT Per LONG CHAIN DYEING MACHINE OPERATOR no longer meets IP criteria, documentation in [...] Toe Head to Toe Assessment Shift Summary [id number] Pt is a/o X4 and can make [...] Within Defined Limits * Nursing Assessment - Lielani Sim RN - 11/22/2023 5:00 PM CDT [...] Cardiac Assessment Within Defined Limits except for: Strip Mine Supervisor - remote telemetry Respiratory Within defined [...] Limits except for: Heart sounds: S1, S2 Strip Mine Supervisor - remote telemetry Comments: Consistently sustaining [...] Toe Head to Toe Assessment Shift Summary [id number] Pt is a/o X4 and can make [...] Cardiac Assessment Within Defined Limits except for: Strip Mine Supervisor - remote telemetry Respiratory Within defined [...] Palomo DPM - 11/17/2023 9:26 AM CDT [facility] Immediate Post Operative Note Note written: [...] Patient to the OR at 0800. This insurance underwriter called to notify DIRECTOR BEHAVIORAL HEALTHnursing staff development coordinator of hypertension. Pt had left the room prior to [facility] notifying this insurance underwriter of BP of 222/101. Vitals: 11/17/23 [...] wants to go outside to smoke, and insurance underwriter encouraged the patient not to go [...] Cardiac Assessment Within Defined Limits except for: Strip Mine Supervisor - remote telemetry Respiratory Assessment Within [...] Cardiac Assessment Within Defined Limits except for: Strip Mine Supervisor - remote telemetry Respiratory Assessment Within [...] Defined Limits except for: Chest Pain: No Strip Mine Supervisor - remote telemetry Pacemaker: Pacemaker: No [...] Cardiac Assessment Within Defined Limits except for: Strip Mine Supervisor - remote telemetry Comments: NSR Respiratory [...] Cardiac Assessment Within Defined Limits except for: Strip Mine Supervisor - remote telemetry Respiratory Assessment Within [...] Cardiac: Assessment Within Defined Limits except for: Strip Mine Supervisor - remote telemetry Respiratory: Assessment Within [...] Note - PGY-1 Matt Low 43 y.o. [id number] Paged at 03:34 on 11/14/23 for elevated [...] for SBP > 180 - Potentially resume DUTY MANAGER losartan per primary team in the [...] Cardiac Assessment Within Defined Limits except for: Strip Mine Supervisor - remote telemetry Respiratory Assessment Within [...] Cardiac Assessment Within Defined Limits except for: Strip Mine Supervisor - remote telemetry Pacemaker: Pacemaker: No [...] Cardiac Assessment Within Defined Limits except for: Strip Mine Supervisor - remote telemetry Respiratory Assessment Within [...] Cardiac Assessment Within Defined Limits except for: Strip Mine Supervisor - remote telemetry Respiratory Assessment Within [...] Cardiac Assessment Within Defined Limits except for: Strip Mine Supervisor - remote telemetry Respiratory Assessment Within [...] Nichols MD - 11/11/2023 3:13 PM CDT [facility] Immediate Post Operative Note Note written: [...] Osborn MD - 11/10/2023 5:07 PM CDT [facility] Immediate Post Operative Note Note written: [...] PM CDT Emergency Department Stabilization Room Note [facility] Arrival Date and Time: 11/10/2023 2:28 PM MEDICAL TEAM Attending: MD MARCELLUS Grullon Resident: Allyssa Drummond MD RN: Enmanuel HCA: Doreen Consultants: General surgery PRE-HOSPITAL EVENTS & HISTORY Matt Low is a 43 y.o. 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 Patient has a history [...] the hospital today and the physicians at [place] were concerned for Demar'sgangrene and transferred him [...] CRP 30, procal 0.83, WBC 20 at [place]. We will draw an ESR and our [...] Glucose 140(H) 70 - 100 mg/dL [facility] Blood 11/25/2023 6:03 AM CDT Jessica Grullon MD LABORATORY [facility] [address] [place] [address], * (ABNORMAL) POC GLUCOSE (11/24/2023 8:47 PM CDT) POC Glucose 156(H) 70 - 100 mg/dL [facility] POINT [facility] CARE Blood 11/24/2023 8:47 PM CDT Jessica Grullon MD LABORATORY Performing Organization Address City/[facility]/ZIP Co de Phone Number [facility] [address] [place] [address], [place] * (ABNORMAL) POC GLUCOSE (11/24/2023 4:56 PM CDT) POC Glucose 177(H) 70 - 100 mg/dL [facility] POINT OF [facility] Blood 11/24/2023 4:56 PM CDT Jessica Grullon MD LABORATORY Performing Organization Address City/[facility] Co de Phone Number [facility] [address] [place] [address], [place] * (ABNORMAL) POC GLUCOSE (11/24/2023 11:22 AM CDT) POC Glucose 146(H) 70 - 100 mg/dL [facility] Blood 11/24/2023 11:2 2 AM CDT Jessica Grullon MD LABORATORY Performing Organization Address City/[facility]/ZIP Co de Phone Number [facility] POINT OF [facility] [address] [place] [address], [place] * (ABNORMAL) POC GLUCOSE (11/24/2023 6:03 AM CDT) POC Glucose 147(H) 70 - 100 mg/dL [facility] Blood 11/24/2023 6:03 AM CDT Jessica Grullon MD LABORATORY Performing Organization Address City/[facility]/ZIP Co de Phone Number [facility] [address] [place] [address], [place] * (ABNORMAL) POC GLUCOSE (11/23/2023 7:52 PM CDT) POC Glucose 160(H) 70 - 100 mg/dL [facility] Blood 11/23/2023 7:52 PM CDT Jessica Grullon MD LABORATORY Performing Organization Address [facility] Co de Phone Number [facility] [address] [place] [address], [place] * (ABNORMAL) POC GLUCOSE (11/23/2023 4:18 PM CDT) POC Glucose 156(H) 70 - 100 mg/dL [facility] Blood 11/23/2023 4:18 PM CDT Jessica Grullon MD LABORATORY Performing Organization Address [facility] Co de Phone Number [facility] [address] [place] [address], [place] * (ABNORMAL) POC GLUCOSE (11/23/2023 11:13 AM CDT) [facility] POC Glucose 182(H) 70 - 100 mg/dL [facility] Blood 11/23/2023 11:1 3 AM CDT Jessica Grullon MD LABORATORY Performing Organization Address [facility] Co de Phone Number [facility] [address] [place] [address], [place] * (ABNORMAL) PANEL BASIC METABOLIC (BMP) (11/23/2023 8:31 AM CDT) CO2 24 22 - 30 mmol/L [facility] Glucose 192(H) 70 - 100 mg/dL [facility] BUN 20 6 - 20 mg/dL [facility] Creatinine 1.96(H) 0.70 - 1.25 mg/dL [facility] Calcium 8.5(L) 8.6 - 10.0 mg/dL [facility] Sodium 137 135 - 148 mmol/L [facility] Potassium 5.1 3.5 - 5.3 mmol/L [facility] Chloride 103 92 - 108 mmol/L [facility] eGFR (2020 CKD-EPI) 42(L) >=60 ml/min/1.7 3m2 [facility] Comment: The estimated glomerular filtration rate (eGFR) was calculated using the CKD-EPI 2020 creatinine equation, which does not include race as a factor. This equation is validated in individuals 18 years of age and older, and eGFR is normalized to a body surface area of 1.73m^2. AnGap 10 8 - 16 mmol/L [facility] Blood 11/23/2023 8:31 AM CDT 11/23/2023 9:12 AM CDT Zac Churchill MD LABORATORY [facility] [address] [address] * (ABNORMAL) CBC WITH PLATELET (11/23/2023 8:31 AM CDT) WBC 13.36(H) 4.00 - 10.00 k/cmm [facility] RBC 3.57(L) 4.60 - 6.00 m/cmm [facility] Hgb 10.0(L) 13.1 - 17.5 g/dL [facility] Hematocrit 31.5(L) 40.0 - 51.0 % [facility] MCV 88.2 80.0 - 100.0 fL [facility] MCH 28.0 25.0 - 32.0 pg [facility] MCHC 31.7 31.0 - 36.0 g/dL [facility] RDW 14.4 11.5 - 14.5 % [facility] Plt 492(H) 150 - 400 k/cmm [facility] MPV 9.1 6.5 - 12.5 fL [facility] Blood 11/23/2023 8:31 AM CDT 11/23/2023 9:11 AM CDT Zac Churchill MD LABORATORY [facility] [address] [place] [address] * (ABNORMAL) POC GLUCOSE (11/23/2023 6:43 AM CDT) POC Glucose 121(H) 70 - 100 mg/dL [facility] Blood 11/23/2023 6:43 AM CDT Jessica Grullon MD LABORATORY Performing Organization Address City/[facility]/ZIP Co de Phone Number [facility] POINT OF [facility] [address] [place] [address], [place] * POC GLUCOSE (11/22/2023 8:28 PM CDT) POC Glucose 95 70 - 100 mg/dL [facility] Blood 11/22/2023 8:28 PM CDT Jessica Grullon MD LABORATORY Performing Organization Address City/[facility]/ZIP Co de Phone Number [facility] POINT OF [address] [address], [place] * (ABNORMAL) POC GLUCOSE (11/22/2023 4:10 PM CDT) POC Glucose 176(H) 70 - 100 mg/dL [facility] POINT OF CARE Blood 11/22/2023 4:10 PM CDT Jessica Grullon MD LABORATORY [facility] POINT OF CARE [address] [place] [address], [place] * (ABNORMAL) POC GLUCOSE (11/22/2023 11:21 AM CDT) POC Glucose 201(H) 70 - 100 mg/dL [facility] Blood 11/22/2023 11:2 1 AM CDT Jessica Grullon MD LABORATORY Performing Organization Address City/[facility]/ZIP Co de Phone Number [facility] [address] [place] [address], * (ABNORMAL) CYSTATIN C (11/22/2023 9:23 AM CDT) Cystatin C 1.43(H) 0.61 - 0.95 mg/L [facility] eGFR by Cystatin C 51(L) >=60 ml/min/1.7 3m2 [facility] Comment: Estimated GFR calculated using the CKD-EPI Cystatin C (2012) equation. Stage ? Description ?eGFR Range ??1.......Normal or increased eGFR.......90 or Greater ??2.......Mildly decreased eGFR..........60-89 ??3.......Moderately decreased eGFR......30-59 ??4.......Severely decreased eGFR........15-29 ??5.......Kidney Failure.................Less than 15 Blood 11/22/2023 9:23 AM CDT 11/22/2023 2:05 PM CDT Zac Churchill MD LABORATORY [facility] [address] [address] * (ABNORMAL) PANEL BASIC METABOLIC (BMP) (11/22/2023 9:23 AM CDT) Sodium 136 135 - 148 mmol/L [facility] Potassium 5.1 3.5 - 5.3 mmol/L [facility] Chloride 102 92 - 108 mmol/L [facility] CO2 24 22 - 30 mmol/L [facility] AnGap 10 8 - 16 mmol/L [facility] Glucose 254(H) 70 - 100 mg/dL [facility] BUN 20 6 - 20 mg/dL [facility] Creatinine 2.00(H) 0.70 - 1.25 mg/dL [facility] Calcium 8.6 8.6 - 10.0 mg/dL [facility] eGFR (2020 CKD-EPI) 41(L) >=60 ml/min/1.7 3m2 [facility] Comment: The estimated glomerular filtration rate (eGFR) was calculated using the CKD-EPI 2020 creatinine equation, which does not include race as a factor. This equation is validated in individuals 18 years of age and older, and eGFR is normalized to a body surface area of 1.73m^2. Blood 11/22/2023 9:23 AM CDT 11/22/2023 10:28 AM CDT Zac Churchill MD LABORATORY Performing Organization Address City/[facility]/ZIP Co de Phone Number [facility] [address] [address] * (ABNORMAL) CBC WITH PLATELET (11/22/2023 9:23 AM CDT) WBC 12.35(H) 4.00 - 10.00 k/cmm [facility] RBC 3.47(L) 4.60 - 6.00 m/cmm [facility] Hgb 9.8(L) 13.1 - 17.5 g/dL [facility] Hematocrit 30.8(L) 40.0 - 51.0 % [facility] MCV 88.8 80.0 - 100.0 fL [facility] MCH 28.2 25.0 - 32.0 pg [facility] MCHC 31.8 31.0 - 36.0 g/dL [facility] RDW 14.5 11.5 - 14.5 % [facility] Plt 530(H) 150 - 400 k/cmm [facility] MPV 9.3 6.5 - 12.5 fL [facility] Blood 11/22/2023 9:23 AM CDT 11/22/2023 10:28 AM CDT Zac Churchill MD LABORATORY Performing Organization Address City/[facility]/ZIP Co de Phone Number [facility] [address] [place] [address] * (ABNORMAL) POC GLUCOSE (11/22/2023 6:55 AM CDT) POC Glucose 136(H) 70 - 100 mg/dL [facility] C[facility] Blood 11/22/2023 6:55 AM CDT Jessica Grullon MD LABORATORY [facility] POINT OF CARE [address] [place] [address], [place] * (ABNORMAL) POC GLUCOSE (11/21/2023 8:38 PM CDT) POC Glucose 139(H) 70 - 100 mg/dL [facility]INT [facility] Blood 11/21/2023 8:38 PM CDT Jessica Grullon MD LABORATORY Performing Organization Address City/[facility]/ZIP Co de Phone Number [facility] [address] [place] [address], [place] * (ABNORMAL) POC GLUCOSE (11/21/2023 4:13 PM CDT) POC Glucose 141(H) 70 - 100 mg/dL [facility]INT [facility] Blood 11/21/2023 4:13 PM CDT Jessica Grullon MD LABORATORY [facility] OF CARE [address] [place] [address], [place] * (ABNORMAL) POC GLUCOSE (11/21/2023 11:12 AM CDT) POC Glucose 177(H) 70 - 100 mg/dL [facility] CARE Blood 11/21/2023 11:1 2 AM CDT Jessica Grullon MD LABORATORY Performing Organization Address City/[facility]/ZIP Co de Phone Number [facility] POINT OF CARE [address] [place] [address], * (ABNORMAL) POC GLUCOSE (11/21/2023 6:08 AM CDT) POC Glucose 131(H) 70 - 100 mg/dL [facility] Blood 11/21/2023 6:08 AM CDT Jessica Grullon MD LABORATORY Performing Organization Address [facility] Co de Phone Number [facility] POINT OF [facility] [address] [place] [address], [place] * (ABNORMAL) PANEL BASIC METABOLIC (BMP) (11/21/2023 4:52 AM CDT) CO2 27 22 - 30 mmol/L [facility] Glucose 128(H) 70 - 100 mg/dL [facility] BUN 21(H) 6 - 20 mg/dL [facility] Creatinine 2.07(H) 0.70 - 1.25 mg/dL [facility] Calcium 8.4(L) 8.6 - 10.0 mg/dL [facility] Sodium 138 135 - 148 mmol/L [facility] Potassium 4.8 3.5 - 5.3 mmol/L [facility] Chloride 103 92 - 108 mmol/L [facility] eGFR (2020 CKD-EPI) 40(L) >=60 ml/min/1.7 3m2 [facility] Comment: The estimated glomerular filtration rate (eGFR) was calculated using the CKD-EPI 2020 creatinine equation, which does not include race as a factor. This equation is validated in individuals 18 years of age and older, and eGFR is normalized to a body surface area of 1.73m^2. AnGap 8 8 - 16 mmol/L [facility] Blood 11/21/2023 4:52 AM CDT 11/21/2023 5:27 AM CDT Zac Churchill MD LABORATORY [facility] [address] [address] * (ABNORMAL) CBC WITH PLATELET (11/21/2023 4:52 AM CDT) Pathologist [facility] WBC 11.48(H) 4.00 - 10.00 k/cmm [facility] RBC 3.21(L) 4.60 - 6.00 m/cmm [facility] Hgb 9.0(L) 13.1 - 17.5 g/dL [facility] Hematocrit 28.7(L) 40.0 - 51.0 % [facility] MCV 89.4 80.0 - 100.0 fL [facility] MCH 28.0 25.0 - 32.0 pg [facility] MCHC 31.4 31.0 - 36.0 g/dL [facility] RDW 14.6(H) 11.5 - 14.5 % [facility] Plt 510(H) 150 - 400 k/cmm [facility] MPV 9.1 6.5 - 12.5 fL [facility] Blood 11/21/2023 4:52 AM CDT 11/21/2023 5:27 AM CDT Zac Churchill MD LABORATORY [address] [address] * (ABNORMAL) POC GLUCOSE (11/20/2023 9:13 PM CDT) [facility] POC Glucose 153(H) 70 - 100 mg/dL [facility] POINT OF CARE Blood 11/20/2023 9:13 PM CDT Jessica Grullon MD LABORATORY [facility] POINT OF CARE [address] [place] [id number] [place] [address] * (ABNORMAL) POC GLUCOSE (11/20/2023 3:52 PM CDT) Pathologist [facility] POC Glucose 129(H) 70 - 100 mg/dL [facility] POINT OF CARE Blood 11/20/2023 3:52 PM CDT Jessica Grullon MD LABORATORY Performing Organization Address City/[facility]/ZIP Co de Phone Number [facility] POINT [facility] [address] [place] [phone], * (ABNORMAL) POC GLUCOSE (11/20/2023 11:16 AM CDT) POC Glucose 165(H) 70 - 100 mg/dL [facility] POINT OF [facility] Blood 11/20/2023 11:1 6 AM CDT Jessica Grullon MD LABORATORY Performing Organization Address [facility] de Phone Number [facility] [address] [place] [phone], [place] * (ABNORMAL) PANEL BASIC METABOLIC (BMP) (11/20/2023 8:18 AM CDT) Pathologist [facility] Sodium 140 135 - 148 mmol/L [facility] Potassium 4.9 3.5 - 5.3 mmol/L [facility] Chloride 105 92 - 108 mmol/L [facility] CO2 26 22 - 30 mmol/L [facility] AnGap 9 8 - 16 mmol/L [facility] Glucose 147(H) 70 - 100 mg/dL [facility] BUN 21(H) 6 - 20 mg/dL [facility] Creatinine 2.02(H) 0.70 - 1.25 mg/dL [facility] Calcium 8.4(L) 8.6 - 10.0 mg/dL [facility] eGFR (2020 CKD-EPI) 41(L) >=60 ml/min/1.7 3m2 [facility] Comment: The estimated glomerular filtration rate (eGFR) was calculated using the CKD-EPI 2020 creatinine equation, which does not include race as a factor. This equation is validated in individuals 18 years of age and older, and eGFR is normalized to a body surface area of 1.73m^2. Blood 11/20/2023 8:18 AM CDT 11/20/2023 8:40 AM CDT 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 APRN, CNP LABORATORY [facility] [address] [place] [phone] * (ABNORMAL) CBC WITH PLTS/AUTO DIFF (11/20/2023 8:18 AM CDT) WBC 10.90(H) 4.00 - 10.00 k/cmm [facility] RBC 3.17(L) 4.60 - 6.00 m/cmm [facility] Hgb 9.0(L) 13.1 - 17.5 g/dL [facility] Hematocrit 28.3(L) 40.0 - 51.0 % [facility] MCV 89.3 80.0 - 100.0 fL [facility] MCH 28.4 25.0 - 32.0 pg [facility] MCHC 31.8 31.0 - 36.0 g/dL [facility] RDW 14.3 11.5 - 14.5 % [facility] Plt 492(H) 150 - 400 k/cmm [facility] MPV 9.2 6.5 - 12.5 fL [facility] Automated Abs Neutrophil 6.51(H) 1.70 - 6.50 k/cmm [facility] Comment:Preliminary ANC, Fin al Result to Follow Abs Immature Granulocyte 0.57(H) 0.00 - 0.09 k/cmm [facility] Comment:The Immature Granulo cyte Absolute count contains metamyelocytes and myelocytes. Abs Neutrophil 6.51(H) 1.70 - 6.50 k/cmm [facility] Abs Lymphocyte 2.07 0.80 - 4.00 k/cmm [facility] Abs Monocyte 1.27(H) 0.20 - 1.00 k/cmm [facility] Abs Eosinophil 0.45 0.00 - 0.60 k/cmm [facility] Abs Basophil 0.03 0.00 - 0.20 k/cmm [facility] Blood 11/20/2023 8:18 AM CDT 11/20/2023 8:40 AM CDT 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 APRN, CNP LABORATORY [facility] [address] [place] [address] * (ABNORMAL) POC GLUCOSE (11/20/2023 8:08 AM CDT) POC Glucose 133(H) 70 - 100 mg/dL [facility] POINT OF CARE Blood 11/20/2023 8:08 AM CDT Jessica Grullon MD LABORATORY [facility] POINT OF CARE [address] [place] [address], [place] * (ABNORMAL) POC GLUCOSE (11/20/2023 6:30 AM CDT) POC Glucose 153(H) 70 - 100 mg/dL [facility] POINT OF CARE Blood 11/20/2023 6:30 AM CDT Jessica Grullon MD LABORATORY Performing Organization Address City/[facility] Co de Phone Number [facility] POINT OF [facility] [address] [place] [address], [place] * (ABNORMAL) POC GLUCOSE (11/19/2023 9:03 PM CDT) POC Glucose 148(H) 70 - 100 mg/dL [facility] POINT OF CARE Blood 11/19/2023 9:03 PM CDT Jessica Grullon MD LABORATORY [facility] POINT OF CARE [address] [place] [address], [place] * (ABNORMAL) POC GLUCOSE (11/19/2023 3:55 PM CDT) POC Glucose 126(H) 70 - 100 mg/dL [facility] POINT OF CARE Blood 11/19/2023 3:55 PM CDT Jessica Grullon MD LABORATORY Performing Organization Address City/[facility]/ZIP Co de Phone Number [facility] POINT OF CARE [address] [place] [address], [place] * (ABNORMAL) POC GLUCOSE (11/19/2023 12:03 PM CDT) POC Glucose 147(H) 70 - 100 mg/dL [facility] POINT OF CARE Blood 11/19/2023 12:0 3 PM CDT Jessica Grullon MD LABORATORY Performing Organization Address City/[facility] Co de Phone Number [facility] [address] [place] [phone], [place] * (ABNORMAL) POC GLUCOSE (11/19/2023 11:07 AM CDT) POC Glucose 159(H) 70 - 100 mg/dL [facility] POINT OF [facility] Blood 11/19/2023 11:0 7 AM CDT Jessica Grullon MD LABORATORY Performing Organization Address [facility] Co de Phone Number [facility] [address] [place] [address], [place] * (ABNORMAL) POC GLUCOSE (11/19/2023 8:51 AM CDT) POC Glucose 185(H) 70 - 100 mg/dL [facility] POINT OF [facility] Blood 11/19/2023 8:51 AM CDT Jesisca Grullon MD LABORATORY Performing Organization Address City/[facility]/ZIP Co de Phone Number [facility] [address] [place] [address], [place] * (ABNORMAL) PANEL BASIC METABOLIC (BMP) (11/19/2023 7:58 AM CDT) CO2 24 22 - 30 mmol/L [facility] Glucose 221(H) 70 - 100 mg/dL [facility] BUN 25(H) 6 - 20 mg/dL [facility] Creatinine 2.19(H) 0.70 - 1.25 mg/dL [facility] Calcium 7.8(L) 8.6 - 10.0 mg/dL [facility] Sodium 138 135 - 148 mmol/L [facility] Potassium 4.7 3.5 - 5.3 mmol/L [facility] Chloride 104 92 - 108 mmol/L [facility] eGFR (2020 CKD-EPI) 37(L) >=60 ml/min/1.7 3m2 [facility] Comment: The estimated glomerular filtration rate (eGFR) was calculated using the CKD-EPI 2020 creatinine equation, which does not include race as a factor. This equation is validated in individuals 18 years of age and older, and eGFR is normalized to a body surface area of 1.73m^2. AnGap 10 8 - 16 mmol/L [facility] Blood 11/19/2023 7:58 AM CDT 11/19/2023 8:34 AM CDT 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 APRN, CNP LABORATORY [facility] [address] [place] [phone] * (ABNORMAL) CBC WITH PLTS/AUTO DIFF (11/19/2023 7:58 AM CDT) WBC 10.66(H) 4.00 - 10.00 k/cmm [facility] RBC 3.14(L) 4.60 - 6.00 m/cmm [facility] Hgb 9.0(L) 13.1 - 17.5 g/dL [facility] Hematocrit 27.7(L) 40.0 - 51.0 % [facility] MCV 88.2 80.0 - 100.0 fL [facility] MCH 28.7 25.0 - 32.0 pg [facility] MCHC 32.5 31.0 - 36.0 g/dL [facility] RDW 14.3 11.5 - 14.5 % [facility] Plt 482(H) 150 - 400 k/cmm [facility] MPV 9.2 6.5 - 12.5 fL [facility] Automated Abs Neutrophil 6.41 1.70 - 6.50 k/cmm [facility] Comment:Preliminary ANC, Fin al Result to Follow Polychromasia Slight [facility] Abs Neutrophil 8.10(H) 1.70 - 6.50 k/cmm [facility] Abs Lymphocyte 1.07 0.80 - 4.00 k/cmm [facility] Abs Monocyte 0.85 0.20 - 1.00 k/cmm [facility] Abs Eosinophil 0.32 0.00 - 0.60 k/cmm [facility] Abs Basophil 0.11 0.00 - 0.20 k/cmm [facility] Abs Myelocyte 0.21(H) 0.00 - 0.00 k/cmm [facility] Blood 11/19/2023 7:58 AM CDT 11/19/2023 8:34 AM CDT 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 APRN, CNP LABORATORY Performing Organization Address [facility] de Phone Number [facility] [place] [address] * (ABNORMAL) POC GLUCOSE (11/19/2023 6:37 AM CDT) POC Glucose 212(H) 70 - 100 mg/dL [facility] POINT OF CARE Blood 11/19/2023 6:37 AM CDT Jessica Grullon MD LABORATORY Performing Organization Address [facility] de Phone Number [facility] POINT OF CARE [address] [place] [address], [place] * POC GLUCOSE (11/18/2023 8:54 PM CDT) POC Glucose 99 70 - 100 mg/dL [facility] POINT OF CARE Blood 11/18/2023 8:54 PM CDT Jessica Grullon MD LABORATORY Performing Organization Address [facility] Co de Phone Number [facility] POINT OF CARE [address] [place] [address], [place] * (ABNORMAL) POC GLUCOSE (11/18/2023 8:20 PM CDT) POC Glucose 69(L) 70 - 100 mg/dL [facility] POINT OF [facility] Blood 11/18/2023 8:20 PM CDT Jessica Grullon MD LABORATORY Performing Organization Address [facility] Co de Phone Number [facility] [address] [place] [address], [place] * (ABNORMAL) POC GLUCOSE (11/18/2023 4:37 PM CDT) [facility] POC Glucose 154(H) 70 - 100 mg/dL [facility] Blood 11/18/2023 4:37 PM CDT Jessica Grullon MD LABORATORY Performing Organization Address [facility] Co de Phone Number [facility] [address] [place] [address], [place] * (ABNORMAL) POC GLUCOSE (11/18/2023 11:03 AM CDT) [facility] POC Glucose 158(H) 70 - 100 mg/dL [facility] Blood 11/18/2023 11:0 3 AM CDT Jessica Grullon MD LABORATORY Performing Organization Address [facility] Co de Phone Number [facility] [address] [place] [address], [place] * (ABNORMAL) PANEL BASIC METABOLIC (BMP) (11/18/2023 9:02 AM CDT) CO2 24 22 - 30 mmol/L [facility] Glucose 180(H) 70 - 100 mg/dL [facility] BUN 27(H) 6 - 20 mg/dL [facility] Creatinine 2.17(H) 0.70 - 1.25 mg/dL [facility] Calcium 8.2(L) 8.6 - 10.0 mg/dL [facility] Sodium 137 135 - 148 mmol/L [facility] Potassium 4.5 3.5 - 5.3 mmol/L [facility] Chloride 104 92 - 108 mmol/L [facility] eGFR (2020 CKD-EPI) 37(L) >=60 ml/min/1.7 3m2 [facility] Comment: The estimated glomerular filtration rate (eGFR) was calculated using the CKD-EPI 2020 creatinine equation, which does not include race as a factor. This equation is validated in individuals 18 years of age and older, and eGFR is normalized to a body surface area of 1.73m^2. AnGap 9 8 - 16 mmol/L [facility] Blood 11/18/2023 9:02 AM CDT 11/18/2023 9:21 AM CDT 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 APRN, CNP LABORATORY [facility] [address] [address] * (ABNORMAL) CBC WITH PLTS/AUTO DIFF (11/18/2023 9:02 AM CDT) WBC 10.61(H) 4.00 - 10.00 k/cmm [facility] RBC 3.36(L) 4.60 - 6.00 m/cmm [facility] Hgb 9.4(L) 13.1 - 17.5 g/dL [facility] Hematocrit 29.5(L) 40.0 - 51.0 % [facility] MCV 87.8 80.0 - 100.0 fL [facility] MCH 28.0 25.0 - 32.0 pg [facility] MCHC 31.9 31.0 - 36.0 g/dL [facility] RDW 14.2 11.5 - 14.5 % [facility] Plt 495(H) 150 - 400 k/cmm [facility] MPV 9.2 6.5 - 12.5 fL [facility] Automated Abs Neutrophil 6.34 1.70 - 6.50 k/cmm [facility] Comment:Preliminary ANC, Fin al Result to Follow NUC RBC 1.0(H) 0.0 - 0.0 /100WBC [facility] Polychromasia Slight [facility] Abs Neutrophil 7.32(H) 1.70 - 6.50 k/cmm [facility] Abs Lymphocyte 2.23 0.80 - 4.00 k/cmm [facility] Abs Monocyte 0.85 0.20 - 1.00 k/cmm [facility] Abs Eosinophil 0.21 0.00 - 0.60 k/cmm [facility] Blood 11/18/2023 9:02 AM CDT 11/18/2023 9:21 AM CDT 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 APRN, CNP LABORATORY Performing Organization Address City/[facility]/ZIP Co de Phone Number [facility] [place] [address] * (ABNORMAL) POC GLUCOSE (11/18/2023 6:21 AM CDT) POC Glucose 194(H) 70 - 100 mg/dL [facility] POINT OF CARE Blood 11/18/2023 6:21 AM CDT Jessica Grullon MD LABORATORY Performing Organization Address City/[facility] Co de Phone Number [facility] POINT OF [address] * (ABNORMAL) POC GLUCOSE (11/17/2023 8:19 PM CDT) POC Glucose 143(H) 70 - 100 mg/dL [facility] POINT OF CARE Blood 11/17/2023 8:19 PM CDT Jessica Grullon MD LABORATORY Performing Organization Address City/[facility]/ZIP Co de Phone Number [facility] POINT OF [address] * (ABNORMAL) POC GLUCOSE (11/17/2023 4:40 PM CDT) POC Glucose 235(H) 70 - 100 mg/dL [facility] POINT OF CARE Blood 11/17/2023 4:40 PM CDT Jessica Grullon MD LABORATORY [facility] POINT OF CARE [address] [place] [address], [place] * (ABNORMAL) CBC WITH PLTS/AUTO DIFF (11/17/2023 2:35 PM CDT) WBC 11.70(H) 4.00 - 10.00 k/cmm [facility] RBC 3.37(L) 4.60 - 6.00 m/cmm [facility] Hgb 9.6(L) 13.1 - 17.5 g/dL [facility] Hematocrit 29.6(L) 40.0 - 51.0 % [facility] MCV 87.8 80.0 - 100.0 fL [facility] MCH 28.5 25.0 - 32.0 pg [facility] MCHC 32.4 31.0 - 36.0 g/dL [facility] RDW 14.2 11.5 - 14.5 % [facility] Plt 466(H) 150 - 400 k/cmm [facility] MPV 9.3 6.5 - 12.5 fL [facility] Automated Abs Neutrophil 7.44(H) 1.70 - 6.50 k/cmm [facility] Comment:Preliminary ANC, Fin al Result to Follow Abs Immature Granulocyte 0.52(H) 0.00 - 0.09 k/cmm [facility] Comment:The Immature Granulo cyte Absolute count contains metamyelocytes and myelocytes. Abs Neutrophil 7.44(H) 1.70 - 6.50 k/cmm [facility] Abs Lymphocyte 1.96 0.80 - 4.00 k/cmm [facility] Abs Monocyte 1.45(H) 0.20 - 1.00 k/cmm [facility] Abs Eosinophil 0.27 0.00 - 0.60 k/cmm [facility] Abs Basophil 0.06 0.00 - 0.20 k/cmm [facility] Polychromasia Slight [facility] Blood 11/17/2023 2:35 PM CDT 11/17/2023 2:57 PM CDT Scar Leyva MD LABORATORY Performing Organization Address [facility] Co de Phone Number [facility] [address] [address] * (ABNORMAL) PANEL BASIC METABOLIC (BMP) (11/17/2023 2:35 PM CDT) CO2 21(L) 22 - 30 mmol/L [facility] Glucose 252(H) 70 - 100 mg/dL [facility] BUN 30(H) 6 - 20 mg/dL [facility] Creatinine 2.27(H) 0.70 - 1.25 mg/dL [facility] Calcium 8.2(L) 8.6 - 10.0 mg/dL [facility] Sodium 137 135 - 148 mmol/L [facility] Potassium 4.3 3.5 - 5.3 mmol/L [facility] Chloride 104 92 - 108 mmol/L [facility] eGFR (2020 CKD-EPI) 35(L) >=60 ml/min/1.7 3m2 [facility] Comment: The estimated glomerular filtration rate (eGFR) was calculated using the CKD-EPI 2020 creatinine equation, which does not include race as a factor. This equation is validated in individuals 18 years of age and older, and eGFR is normalized to a body surface area of 1.73m^2. AnGap 12 8 - 16 mmol/L [facility] Blood 11/17/2023 2:35 PM CDT 11/17/2023 2:57 PM CDT cSar Leyva MD LABORATORY Performing Organization Address City/[facility]/ZIP Co de Phone Number [facility] [address] [address] * ANTI XA ASSAY LMW HEPARIN (11/17/2023 11:47 AM CDT) Anti XA LMW <0.04 IU/mL [facility] Comment: Anti Xa Assay LMW Heparin Therapeutic Ranges: 0.4-1.1 IU/mL for twice daily 1.0-2.0 IU/mL for once daily Blood 11/17/2023 11:4 7 AM CDT 11/17/2023 12:01 PM CDT Zac Churchill MD LABORATORY [facility] [address] [place] [phone] * (ABNORMAL) POC GLUCOSE (11/17/2023 11:25 AM CDT) POC Glucose 190(H) 70 - 100 mg/dL [facility] POINT OF CARE Blood 11/17/2023 11:2 5 AM CDT Jessica Grullon MD LABORATORY Performing Organization Address City/[facility] Co de Phone Number [facility] POINT OF CARE [address] [place] [address], * XR FOOT LEFT 3 V AP/OBL/LAT* [...] Glucose 176(H) 70 - 100 mg/dL [facility] Blood 11/17/2023 10:0 1 AM CDT Jessica Grullon MD LABORATORY [facility] POINT OF CARE [address] [place] [address], * (ABNORMAL) TISSUE CULTURE:INCLUDES GRAM STAIN (11/17/2023 9:35 AM CDT) Final Report Positive Culture Previous positive called. Rare METHICILLIN RESISTANT Staphylococcus aureus (MRSA) isolated. 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 One colony Staphylococcus lugdunensis isolated. (POS) [facility] Organism METHICILLIN RESISTANT STAPHYLOCOCCUS AUREUS (MRSA)(POS) [facility] Organism STAPHYLOCOCCUS LUGDUNENSIS(POS) [facility] Gram Stain Report Few WBC's seen. No organisms seen. Gram stain electronically reported to and acknowledged by: Che Palomo MD for Podiatric Surgery on 11/17/2023 11:56:22 by [employer] [place] MLS [facility] Tissue TOE STRUCTURE / Unknown 11/17/2023 [...] Vancomycin VITEK JORDY <=0.5: Sensitive Che Palomo [facility] MICROBIOLOGY Performing Organization Address [facility] Co de Phone Number [facility] [address] [address] * FUNGUS CULTURE:INCLUDES SUHAS (11/17/2023 9:35 AM CDT) Final Report No fungus isolated. [facility] SUHAS Prep No fungal elements seen. [facility] Tissue TOE STRUCTURE / Unknown 11/17/2023 9:35 AM CDT Che Brian Palomo [facility] MICROBIOLOGY Performing Organization Address [facility] Co de Phone Number [facility] [address] [address] * ANAEROBE CULTURE (11/17/2023 9:35 AM CDT) Final Report No anaerobes isolated. [facility] Tissue TOE STRUCTURE / Unknown 11/17/2023 9:35 AM CDT Che Palomo [facility] MICROBIOLOGY Performing Organization Address [facility] Co de Phone Number [facility] [address] [address] * AFB CULTURE:INCLUDES AFB SMEAR (11/17/2023 9:35 AM CDT) Final Report No acid fast bacilli isolated. [facility] Acid Fast Stain No acid fast bacilli seen. [facility] Tissue TOE STRUCTURE / Unknown 11/17/2023 9:35 AM CDT Che Palomo [facility] MICROBIOLOGY Performing Organization Address [facility] de Phone Number [facility] [address] [address] * M TUBERCULOSIS AMPLIFICATION (11/17/2023 9:32 AM CDT) Final Report M. tuberculosis complex DNA not detected. [facility] Tissue TOE STRUCTURE / Unknown 11/17/2023 9:32 AM CDT 11/18/2023 9:56 AM CDT Comment:1: Left hallux soft tissue dirty Narrative [facility] - 11/18/2023 2:41 PM CDT This assay uses PCR nucleic acid amplification to detect Mycobacterium tuberculosis complex DNA. ??This test was developed and its performance characteristics determined by [facility]. ??It has not been cleared or approved by the U.S. Food and Drug Administration. ??FDA does not require this test to go through premarket FDA review. ??This test is used for clinical purposes. ??It should not be regarded as investigational or for research. ??[facility] is certified under the Clinical Laboratory Improvement Amendments of 1988 (CLIA) as qualified to perform high complexity clinical laboratory testing. Che Jonbitt [facility] MICROBIOLOGY Performing Organization Address [facility] de Phone Number [facility] [address] [address] * (ABNORMAL) TISSUE CULTURE:INCLUDES GRAM STAIN (11/17/2023 9:32 AM CDT) Final Report Positive Culture Rare METHICILLIN RESISTANT Staphylococcus aureus (MRSA) isolated. 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 Rare Group B beta hemolytic Streptococcus isolated. Pseudomonas aeruginosa isolated in broth only. Results electronically reported to and acknowledged by: Paula Vazquez MD, in [facility] [place], at ?? 11/23/2023 07:49:11 by Pam Alvarado MLS. (POS) [facility] Organism METHICILLIN RESISTANT STAPHYLOCOCCUS AUREUS (MRSA)(POS) [facility] Organism GROUP B BETA HEMOLYTIC STREPTOCOCCUS(POS) [facility] Organism PSEUDOMONAS AERUGINOSA(POS) [facility] Gram Stain Report Positive Gram stain Gram stain electronically reported to and acknowledged by: Che Zheng MD for Podiatric Surgery on 11/17/2023 11:55:10 by Silver Luna MLS Rare WBC's seen. Rare gram positive cocci clusters. (POS) [facility] Tissue TOE STRUCTURE / Unknown 11/17/2023 [...] Tobramycin VITEK JORDY <=1: Sensitive Che Palomo [facility] MICROBIOLOGY [facility] [address] [place] [address] * FUNGUS CULTURE:INCLUDES SUHAS (11/17/2023 9:32 AM CDT) Final Report No fungus isolated. [facility] SUHAS Prep No fungal elements seen. [facility] Tissue TOE STRUCTURE / Unknown 11/17/2023 9:32 AM CDT Che Palomo DP [facility] MICROBIOLOGY Performing Organization Address [facility] de Phone Number [facility] [address] [address] * (ABNORMAL) ANAEROBE CULTURE (11/17/2023 9:32 AM CDT) Final Report Positive Culture Rare Veillonella parvula group isolated. Rare Actinomyces europaeus isolated. (POS) [facility] Organism VEILLONELLA PARVULA GROUP(POS) [facility] Organism ACTINOMYCES EUROPAEUS(POS) [facility] Tissue TOE STRUCTURE / Unknown 11/17/2023 9:32 AM CDT Che Palomo DP [facility] MICROBIOLOGY Performing Organization Address [facility] de Phone Number [facility] [address] [address] * AFB CULTURE:INCLUDES AFB SMEAR (11/17/2023 9:32 AM CDT) Final Report No acid fast bacilli isolated. [facility] Acid Fast Stain No acid fast bacilli seen. [facility] Tissue TOE STRUCTURE / Unknown 11/17/2023 9:32 AM CDT Che Palomo DP [facility] MICROBIOLOGY Performing Organization Address [facility] de Phone Number [facility] [address] [address] * SURGICAL PATHOLOGY (11/17/2023 9:31 AM CDT) SURG PATH FINAL ?Surgical Pathology Report Collection Date: ?11/17/2023 09:31 CDT ?Ordering Physician: ? CHE PALOMO Received Date: ?11/17/2023 09:49 CDT ?Accession Number: ? [id number] ? Surgical Pathology Final Report Specimen Type: [...] underlying soft tissue with moderate osseous softening. Vp Legal Affairs sections are submitted on decalcification as follows: [...] Michael, M.D. Attending Pathologist. DDB/DDBeny 11.17.2023 10:26 [facility] AP Specimen FOOT STRUCTURE / Unknown 11/17/2023 9:31 AM CDT Comment:OR: Routine gross an d microscopic examination Tissue: Left Hallux Site: left foot Additional clinical information: Che Palomo DPM LAB PATHOLOGY Performing Organization Address [facility] Co de Phone Number [facility] [address] [address] * (ABNORMAL) POC GLUCOSE (11/17/2023 9:14 AM CDT) POC Glucose 169(H) 70 - 100 mg/dL [facility] POINT OF CARE Blood 11/17/2023 9:14 AM CDT Jessica Grullon MD LABORATORY Performing Organization Address [facility] de Phone Number [facility] POINT OF CARE [address] [place] [address], [place] * ULT ARTERIAL LOWER EXTREMITY LEFT [...] Glucose 205(H) 70 - 100 mg/dL [facility] POINT OF CARE Blood 11/17/2023 6:07 AM CDT Jessica Grullon MD LABORATORY Performing Organization Address City/[facility]/ZIP Co de Phone Number [facility] POINT OF CARE [address] [place] [address], [place] * (ABNORMAL) POC GLUCOSE (11/16/2023 8:46 PM CDT) POC Glucose 141(H) 70 - 100 mg/dL [facility] POINT OF CARE Blood 11/16/2023 8:46 PM CDT Jessica Grullon MD LABORATORY Performing Organization Address City/[facility] Co de Phone Number [facility] POINT OF [facility] [address] [place] [address], [place] * XR FOOT LEFT 3 V [...] Glucose 148(H) 70 - 100 mg/dL [facility] POINT [facility] CARE Blood 11/16/2023 4:14 PM CDT Jessica Grullon MD LABORATORY [facility] POINT OF CARE [address] [place] [address], [place] * (ABNORMAL) POC GLUCOSE (11/16/2023 10:55 AM CDT) POC Glucose 203(H) 70 - 100 mg/dL [facility] POINT OF CARE Blood 11/16/2023 10:5 5 AM CDT Jessica Grullon MD LABORATORY [facility] POINT OF CARE [address] [place] [address], [place] * (ABNORMAL) CBC WITH PLATELET (11/16/2023 8:45 AM CDT) WBC 13.08(H) 4.00 - 10.00 k/cmm [facility] RBC 3.38(L) 4.60 - 6.00 m/cmm [facility] Hgb 9.6(L) 13.1 - 17.5 g/dL [facility] Hematocrit 28.9(L) 40.0 - 51.0 % [facility] MCV 85.5 80.0 - 100.0 fL [facility] MCH 28.4 25.0 - 32.0 pg [facility] MCHC 33.2 31.0 - 36.0 g/dL [facility] RDW 13.4 11.5 - 14.5 % [facility] Plt 475(H) 150 - 400 k/cmm [facility] MPV 9.5 6.5 - 12.5 fL [facility] Blood 11/16/2023 8:45 AM CDT 11/16/2023 8:58 AM CDT 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 APRN, CNP LABORATORY [facility] [address] [address] * (ABNORMAL) PANEL BASIC METABOLIC (BMP) (11/16/2023 8:45 AM CDT) CO2 21(L) 22 - 30 mmol/L [facility] Glucose 261(H) 70 - 100 mg/dL [facility] BUN 35(H) 6 - 20 mg/dL [facility] Creatinine 2.67(H) 0.70 - 1.25 mg/dL [facility] Calcium 8.3(L) 8.6 - 10.0 mg/dL [facility] Sodium 139 135 - 148 mmol/L [facility] Potassium 4.4 3.5 - 5.3 mmol/L [facility] Chloride 106 92 - 108 mmol/L [facility] eGFR (2020 CKD-EPI) 29(L) >=60 ml/min/1.7 3m2 [facility] Comment: The estimated glomerular filtration rate (eGFR) was calculated using the CKD-EPI 2020 creatinine equation, which does not include race as a factor. This equation is validated in individuals 18 years of age and older, and eGFR is normalized to a body surface area of 1.73m^2. AnGap 12 8 - 16 mmol/L [facility] Blood 11/16/2023 8:45 AM CDT 11/16/2023 8:57 AM CDT 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 APRN, CNP LABORATORY [facility] [address] [place] [address] * (ABNORMAL) POC GLUCOSE (11/16/2023 7:37 AM CDT) POC Glucose 180(H) 70 - 100 mg/dL [facility] POINT OF CARE Blood 11/16/2023 7:37 AM CDT Jessica Grullon MD LABORATORY Performing Organization Address City/[facility]/ZIP Co de Phone Number [address] [address], [place] * (ABNORMAL) POC GLUCOSE (11/15/2023 9:23 PM CDT) POC Glucose 144(H) 70 - 100 mg/dL [facility] Blood 11/15/2023 9:23 PM CDT Jessica Grullon MD LABORATORY Performing Organization Address City/[facility] Co de Phone Number [address] [address], [place] * (ABNORMAL) POC GLUCOSE (11/15/2023 4:18 PM CDT) POC Glucose 159(H) 70 - 100 mg/dL [facility] POINT OF [facility] Blood 11/15/2023 4:18 PM CDT Jessica Grullon MD LABORATORY [facility] POINT [address] [address], [place] * (ABNORMAL) POC GLUCOSE (11/15/2023 11:19 AM CDT) POC Glucose 221(H) 70 - 100 mg/dL [facility] POINT OF CARE Blood 11/15/2023 11:1 9 AM CDT Jessica Grullon MD LABORATORY Performing Organization Address [facility]/ZIP Co de Phone Number [facility] POINT OF CARE [address] [place] [address], * (ABNORMAL) PANEL BASIC METABOLIC (BMP) (11/15/2023 7:39 AM CDT) CO2 21(L) 22 - 30 mmol/L [facility] Glucose 176(H) 70 - 100 mg/dL [facility] BUN 38(H) 6 - 20 mg/dL [facility] Creatinine 2.86(H) 0.70 - 1.25 mg/dL [facility] Calcium 7.6(L) 8.6 - 10.0 mg/dL [facility] Sodium 136 135 - 148 mmol/L [facility] Potassium 4.2 3.5 - 5.3 mmol/L [facility] Chloride 102 92 - 108 mmol/L [facility] eGFR (2020 CKD-EPI) 27(L) >=60 ml/min/1.7 3m2 [facility] Comment: The estimated glomerular filtration rate (eGFR) was calculated using the CKD-EPI 2020 creatinine equation, which does not include race as a factor. This equation is validated in individuals 18 years of age and older, and eGFR is normalized to a body surface area of 1.73m^2. AnGap 13 8 - 16 mmol/L [facility] Blood 11/15/2023 7:39 AM CDT 11/15/2023 7:58 AM CDT Shani Shaw MD LABORATORY Performing Organization Address City/[facility]/ZIP Co de Phone Number [facility] [address] [address] * (ABNORMAL) CREATININE, SERUM (11/15/2023 7:39 AM CDT) Creatinine 2.83(H) 0.70 - 1.25 mg/dL [facility] eGFR (2020 CKD-EPI) 27(L) >=60 ml/min/1.7 3m2 [facility] Comment: The estimated glomerular filtration rate (eGFR) was calculated using the CKD-EPI 2020 creatinine equation, which does not include race as a factor. This equation is validated in individuals 18 years of age and older, and eGFR is normalized to a body surface area of 1.73m^2. Blood 11/15/2023 7:39 AM CDT 11/15/2023 7:58 AM CDT Shani Shaw MD LABORATORY Performing Organization Address City/[facility]/ZIP Co de Phone Number [facility] [address] [address] * HEPATITIS C ANTIBODY WITH CONDITIONAL PCR (11/15/2023 7:39 AM CDT) Pathologist [facility] Hep C Lilly Nonreactive Nonreactive [facility] Comment:Performance characte ristics have not been established with this test on patients less than 10 years of age. Blood 11/15/2023 7:39 AM CDT 11/15/2023 7:58 AM CDT Zac Churchill MD LABORATORY Performing Organization Address City/[facility]/ZIP Co de Phone Number [facility] [address] [address] * HIV COMBO (11/15/2023 7:39 AM CDT) [facility] HIV Antigen-Antibody Nonreactive Nonreactive [facility] Comment:Performance characte ristics have not been established with this test on patients less than 2 years of age. Blood 11/15/2023 7:39 AM CDT 11/15/2023 7:58 AM CDT Zac Churchill MD LABORATORY [facility] [address] [address] * (ABNORMAL) POC GLUCOSE (11/15/2023 6:16 AM CDT) POC Glucose 154(H) 70 - 100 mg/dL [facility] POINT OF CARE Blood 11/15/2023 6:16 AM CDT Jessica Grullon MD LABORATORY Performing Organization Address [facility] Co de Phone Number [facility] POINT [facility] [address] [place] [address], [place] * (ABNORMAL) POC GLUCOSE (11/14/2023 8:34 PM CDT) POC Glucose 159(H) 70 - 100 mg/dL [facility] POINT OF CARE Blood 11/14/2023 8:34 PM CDT Jessica Grullon MD LABORATORY Performing Organization Address [facility] de Phone Number [facility] [address] [phone], [place] * (ABNORMAL) POC GLUCOSE (11/14/2023 4:36 PM CDT) Pathologist [facility] POC Glucose 182(H) 70 - 100 mg/dL [facility] POINT OF [facility] Blood 11/14/2023 4:36 PM CDT Jessica Grullon MD LABORATORY Performing Organization Address [facility] de Phone Number [facility] POINT [facility] [address] [place] [address], [place] * (ABNORMAL) PROTEIN TO CREAT RATIO,URINE (11/14/2023 9:58 AM CDT) TPU 22(H) 0 - 11 mg/dL [facility] Creat Urine 89 30 - 125 mg/dL [facility] Protein to Creat Ratio, Ur 0.25(H) 0.00 - 0.06 mg/mg [facility] Urine 11/14/2023 9:58 AM CDT 11/14/2023 10:06 AM CDT Zac Churchill MD LABORATORY Performing Organization Address [facility] Co de Phone Number [facility] [address] [address] * (ABNORMAL) URINALYSIS,TOTAL (11/14/2023 9:58 AM CDT) Color YELLOW YELLOW [facility] Appearance CLEAR CLEAR [facility] Urine Glucose 500(A) NEGATIVE mg/dL [facility] Bili UA NEGATIVE NEGATIVE [facility] Ketones NEGATIVE NEGATIVE [facility] Specific Banner 1.012 1.003 - 1.030 [facility] Blood Ur NEGATIVE Neg-Trace [facility] PH Urine 5.5 5.0 - 7.0 [facility] Protein Ur TRACE Neg-Trace [facility] Urobilinogen NORMAL NORMAL EU/dL [facility] Nitrite Ur NEGATIVE NEGATIVE [facility] Leuk Est NEGATIVE Neg-Trace [facility] WBC Ur 0-5 0 - 5 perHPF [facility] RBC Ur 0-3 0 - 3 perHPF [facility] Mucus 1+ perLPF [facility] Urinalysis Performed at: [facility] Urine 11/14/2023 9:58 AM CDT 11/14/2023 10:06 AM CDT Zac Churchill MD LABORATORY Performing Organization Address [facility] Co de Phone Number [facility] [address] [address] * (ABNORMAL) POC GLUCOSE (11/14/2023 6:14 AM CDT) [facility] POC Glucose 171(H) 70 - 100 mg/dL [facility] Blood 11/14/2023 6:14 AM CDT Jessica Grullon MD LABORATORY Performing Organization Address City/[facility]/ZIP Co de Phone Number [facility] POINT OF CARE [address] [place] [address], * VANCOMYCIN LEVEL (11/14/2023 5:30 AM CDT) Pathologist [facility] Vancomycin 19.9 mcg/mL [facility] Comment:Expected Range (Trou gh): 10-20 mcg/ml Blood 11/14/2023 5:30 AM CDT 11/14/2023 5:56 AM CDT Zac Churchill MD LABORATORY [facility] [address] [address] * (ABNORMAL) CYSTATIN C (11/14/2023 5:30 AM CDT) Cystatin C 1.78(H) 0.61 - 0.95 mg/L [facility] eGFR by Cystatin C 38(L) >=60 ml/min/1.7 3m2 [facility] Comment: Estimated GFR calculated using the CKD-EPI Cystatin C (2012) equation. Stage ? Description ?eGFR Range ??1.......Normal or increased eGFR.......90 or Greater ??2.......Mildly decreased eGFR..........60-89 ??3.......Moderately decreased eGFR......30-59 ??4.......Severely decreased eGFR........15-29 ??5.......Kidney Failure.................Less than 15 Blood 11/14/2023 5:30 AM CDT 11/14/2023 5:56 AM CDT Zac Churchill MD LABORATORY [facility] [address] [address] * PHOSPHORUS (11/14/2023 5:30 AM CDT) Phosphorus 4.3 2.5 - 4.5 mg/dL [facility] Blood 11/14/2023 5:30 AM CDT 11/14/2023 5:56 AM CDT Zac Churchill MD LABORATORY Performing Organization Address [facility] Co de Phone Number [facility] [address] [address] * (ABNORMAL) PANEL BASIC METABOLIC (BMP) (11/14/2023 5:30 AM CDT) Sodium 136 135 - 148 mmol/L [facility] Potassium 4.1 3.5 - 5.3 mmol/L [facility] Chloride 103 92 - 108 mmol/L [facility] CO2 24 22 - 30 mmol/L [facility] AnGap 9 8 - 16 mmol/L [facility] Glucose 194(H) 70 - 100 mg/dL [facility] BUN 40(H) 6 - 20 mg/dL [facility] Creatinine 3.21(H) 0.70 - 1.25 mg/dL [facility] Calcium 8.2(L) 8.6 - 10.0 mg/dL [facility] eGFR (2020 CKD-EPI) 23(L) >=60 ml/min/1.7 3m2 [facility] Comment: The estimated glomerular filtration rate (eGFR) was calculated using the CKD-EPI 2020 creatinine equation, which does not include race as a factor. This equation is validated in individuals 18 years of age and older, and eGFR is normalized to a body surface area of 1.73m^2. Blood 11/14/2023 5:30 AM CDT 11/14/2023 5:56 AM CDT Zac Churchill MD LABORATORY Performing Organization Address City/[facility] Co de Phone Number [facility] [address] [address] * MAGNESIUM (11/14/2023 5:30 AM CDT) Magnesium 2.4 1.6 - 2.6 mg/dL [facility] Blood 11/14/2023 5:30 AM CDT 11/14/2023 5:56 AM CDT Zac Churchill MD LABORATORY [facility] [address] [address] * (ABNORMAL) CBC WITH PLATELET (11/14/2023 5:30 AM CDT) [facility] WBC 11.96(H) 4.00 - 10.00 k/cmm [facility] RBC 3.21(L) 4.60 - 6.00 m/cmm [facility] Hgb 9.1(L) 13.1 - 17.5 g/dL [facility] Hematocrit 28.5(L) 40.0 - 51.0 % [facility] MCV 88.8 80.0 - 100.0 fL [facility] MCH 28.3 25.0 - 32.0 pg [facility] MCHC 31.9 31.0 - 36.0 g/dL [facility] RDW 13.4 11.5 - 14.5 % [facility] Plt 372 150 - 400 k/cmm [facility] MPV 9.8 6.5 - 12.5 fL [facility] Blood 11/14/2023 5:30 AM CDT 11/14/2023 5:54 AM CDT Zac Churchill MD LABORATORY Performing Organization Address City/[facility]/ZIP Co de Phone Number [address] [address] * (ABNORMAL) POC GLUCOSE (11/13/2023 9:00 PM CDT) Pathologist [facility] POC Glucose 206(H) 70 - 100 mg/dL [facility] POINT OF CARE Blood 11/13/2023 9:00 PM CDT Jessica Grullon MD LABORATORY [facility] POINT OF CARE [address] [place] [address] * (ABNORMAL) POC GLUCOSE (11/13/2023 4:44 PM CDT) Pathologist [facility] POC Glucose 181(H) 70 - 100 mg/dL [facility] POINT OF CARE Blood 11/13/2023 4:44 PM CDT Jessica Grullon MD LABORATORY Performing Organization Address [facility] Co de Phone Number [facility] POINT OF [address] [address], [place] * (ABNORMAL) POC GLUCOSE (11/13/2023 10:56 AM CDT) POC Glucose 170(H) 70 - 100 mg/dL [facility] POINT OF [facility] Blood 11/13/2023 10:5 6 AM CDT Jessica Grullon MD LABORATORY Performing Organization Address [facility] Co de Phone Number [facility] POINT OF [address] [address], [place] * URINE CHLAMYDIA AND NEISSERIAE GONORRHOEAE AMPLIFICATION (11/13/2023 10:45 AM CDT) Pathologist [facility] Chlamydia Amplification - Urine Negative Negative [facility] Comment:Test performed by tr anscription mediated amplification and is FDA approved for genital and urine specimens. N. Gonorrhea Amplification - Urine Negative Negative [facility] Comment:Test performed by tr anscription mediated amplification and is FDA approved for genital and urine specimens. Urine 11/13/2023 10:4 5 AM CDT 11/13/2023 3:03 PM CDT Narrative [facility] - 11/15/2023 12:29 PM CDT For Urines, use first void. Zac Churchill MD LABORATORY Performing Organization Address City/[facility] Co de Phone Number [facility] [address] [address] * HEPATITIS B SURFACE ANTIGEN (11/13/2023 10:20 AM CDT) HBV Surface Ag Nonreactive Nonreactive [facility] Comment: Testing performed at: [facility] [address] [address] Blood 11/13/2023 10:2 0 AM CDT 11/13/2023 10:27 AM CDT Zac Churchill MD LABORATORY Performing Organization Address [facility] [place] [address] * HEPATITIS B SURFACE ANTIBODY (11/13/2023 10:20 AM CDT) [facility] HBsAb Quant <3.31 mIU/ml [facility] Comment:The Hepatitis B Surf gabriella Antibody quantitation is less than 8.00 mIU/mL. There is no evidence of an antibody response to a hepatitis B vaccination or recovery from a hepatitis B infection. This patient is presumed non-immune to hepatitis B. HBsAb Interpretation Nonreactive [facility] Blood 11/13/2023 10:2 0 AM CDT 11/13/2023 10:27 AM CDT Zac Churchill MD LABORATORY Performing Organization Address [facility] de Phone Number [facility] [address] [address] * (ABNORMAL) POC GLUCOSE (11/13/2023 6:08 AM CDT) [facility] POC Glucose 154(H) 70 - 100 mg/dL [facility] PO[facility] CARE Blood 11/13/2023 6:08 AM CDT Jessica Grullon MD LABORATORY Performing Organization Address [facility] de Phone Number [facility] POINT OF CARE [address] [place] [address] * (ABNORMAL) CYSTATIN C (11/13/2023 5:18 AM CDT) [facility] eGFR by Cystatin C 31(L) >=60 ml/min/1.7 3m2 [facility] Comment: Estimated GFR calculated using the CKD-EPI Cystatin C (2012) equation. Stage ? Description ?eGFR Range ??1.......Normal or increased eGFR.......90 or Greater ??2.......Mildly decreased eGFR..........60-89 ??3.......Moderately decreased eGFR......30-59 ??4.......Severely decreased eGFR........15-29 ??5.......Kidney Failure.................Less than 15 Cystatin C 2.11(H) 0.61 - 0.95 mg/L [facility] Blood 11/13/2023 5:18 AM CDT 11/13/2023 5:47 AM CDT Zac Churchill MD LABORATORY Performing Organization Address [facility] de Phone Number [facility] [address] [address] * VANCOMYCIN LEVEL (11/13/2023 5:18 AM CDT) Vancomycin 35.4 mcg/mL [facility] Comment:Expected Range (Trou gh): 10-20 mcg/ml Blood 11/13/2023 5:18 AM CDT 11/13/2023 5:47 AM CDT Zac Churchill MD LABORATORY Performing Organization Address [facility] de Phone Number [facility] [address] [address] * (ABNORMAL) PHOSPHORUS (11/13/2023 5:18 AM CDT) Phosphorus 5.2(H) 2.5 - 4.5 mg/dL [facility] Blood 11/13/2023 5:18 AM CDT 11/13/2023 5:47 AM CDT Zac Churchill MD LABORATORY Performing Organization Address [facility] Co de Phone Number [facility] [address] [address] * (ABNORMAL) PANEL BASIC METABOLIC (BMP) (11/13/2023 5:18 AM CDT) AnGap 12 8 - 16 mmol/L [facility] Sodium 137 135 - 148 mmol/L [facility] Chloride 103 92 - 108 mmol/L [facility] BUN 37(H) 6 - 20 mg/dL [facility] Calcium 7.8(L) 8.6 - 10.0 mg/dL [facility] CO2 22 22 - 30 mmol/L [facility] Glucose 168(H) 70 - 100 mg/dL [facility] Creatinine 3.04(H) 0.70 - 1.25 mg/dL [facility] Potassium 4.4 3.5 - 5.3 mmol/L [facility] eGFR (2020 CKD-EPI) 25(L) >=60 ml/min/1.7 3m2 [facility] Comment: The estimated glomerular filtration rate (eGFR) was calculated using the CKD-EPI 2020 creatinine equation, which does not include race as a factor. This equation is validated in individuals 18 years of age and older, and eGFR is normalized to a body surface area of 1.73m^2. Blood 11/13/2023 5:18 AM CDT 11/13/2023 5:47 AM CDT Zac Churchill MD LABORATORY Performing Organization Address City/[facility]/ZIP Co de Phone Number [facility] [address] [address] * MAGNESIUM (11/13/2023 5:18 AM CDT) Magnesium 2.3 1.6 - 2.6 mg/dL [facility] Blood 11/13/2023 5:18 AM CDT 11/13/2023 5:47 AM CDT Zac Churchill MD LABORATORY [facility] [address] [address] * (ABNORMAL) CBC WITH PLATELET (11/13/2023 5:18 AM CDT) [facility] WBC 13.27(H) 4.00 - 10.00 k/cmm [facility] RBC 3.28(L) 4.60 - 6.00 m/cmm [facility] Hgb 9.2(L) 13.1 - 17.5 g/dL [facility] Hematocrit 30.0(L) 40.0 - 51.0 % [facility] MCV 91.5 80.0 - 100.0 fL [facility] MCH 28.0 25.0 - 32.0 pg [facility] MCHC 30.7(L) 31.0 - 36.0 g/dL [facility] RDW 13.5 11.5 - 14.5 % [facility] Plt 317 150 - 400 k/cmm [facility] MPV 10.1 6.5 - 12.5 fL [facility] Blood 11/13/2023 5:18 AM CDT 11/13/2023 5:47 AM CDT Zac Churchill MD LABORATORY Performing Organization Address City/[facility]/ZIP Co de Phone Number [facility] [place] [address] * RPR SYPHILIS SCREEN (11/12/2023 11:10 PM CDT) [facility] RPR Screen Non-Reactive Non-Reacti ve [facility] RPR Titer Not Reflexed [facility] Blood 11/12/2023 11:1 0 PM CDT 11/12/2023 11:40 PM CDT Zac Churchill MD LABORATORY Performing Organization Address [facility]/ZIP Co de Phone Number [facility] [place] [address] * (ABNORMAL) POC GLUCOSE (11/12/2023 8:47 PM CDT) [facility] POC Glucose 196(H) 70 - 100 mg/dL [facility] Blood 11/12/2023 8:47 PM CDT Jessica Grullon MD LABORATORY Performing Organization Address [facility] Co de Phone Number [facility] POINT OF CARE [address] [place] [phone] [place] [address] * (ABNORMAL) POC GLUCOSE (11/12/2023 4:41 PM CDT) [facility] POC Glucose 172(H) 70 - 100 mg/dL [facility] Blood 11/12/2023 4:41 PM CDT Jessica Grullon MD LABORATORY Performing Organization Address [facility] de Phone Number [facility] POINT OF CARE [address] [place] [address] * VANCOMYCIN LEVEL (11/12/2023 1:22 PM CDT) Pathologist [facility] Vancomycin 47.5 mcg/mL [facility] Comment:Expected Range (Trou gh): 10-20 mcg/ml Blood 11/12/2023 1:22 PM CDT 11/12/2023 1:34 PM CDT Narrative [facility] - 11/12/2023 2:28 PM CDT Peak or trough:->Trough Zac Churchill MD LABORATORY Performing Organization Address [facility] Co de Phone Number [facility] [address] [place] [address] * (ABNORMAL) CYSTATIN C (11/12/2023 11:36 AM CDT) [facility] Cystatin C 2.20(H) 0.61 - 0.95 mg/L [facility] eGFR by Cystatin C 29(L) >=60 ml/min/1.7 3m2 [facility] Comment: Estimated GFR calculated using the CKD-EPI Cystatin C (2012) equation. Stage ? Description ?eGFR Range ??1.......Normal or increased eGFR.......90 or Greater ??2.......Mildly decreased eGFR..........60-89 ??3.......Moderately decreased eGFR......30-59 ??4.......Severely decreased eGFR........15-29 ??5.......Kidney Failure.................Less than 15 Blood 11/12/2023 11:3 6 AM CDT 11/12/2023 2:53 PM CDT aZc Churchill MD LABORATORY Performing Organization Address [facility] Co de Phone Number [facility] [place] [phone] * (ABNORMAL) PHOSPHORUS (11/12/2023 11:36 AM CDT) Phosphorus 5.8(H) 2.5 - 4.5 mg/dL [facility] Blood 11/12/2023 11:3 6 AM CDT 11/12/2023 11:49 AM CDT Zac Churchill MD LABORATORY Performing Organization Address [facility] de Phone Number [facility] [place] [phone] * (ABNORMAL) PANEL BASIC METABOLIC (BMP) (11/12/2023 11:36 AM CDT) Sodium 137 135 - 148 mmol/L [facility] Potassium 4.9 3.5 - 5.3 mmol/L [facility] Chloride 104 92 - 108 mmol/L [facility] CO2 23 22 - 30 mmol/L [facility] AnGap 10 8 - 16 mmol/L [facility] Glucose 160(H) 70 - 100 mg/dL [facility] BUN 29(H) 6 - 20 mg/dL [facility] Creatinine 2.24(H) 0.70 - 1.25 mg/dL [facility] Calcium 7.8(L) 8.6 - 10.0 mg/dL [facility] eGFR (2020 CKD-EPI) 36(L) >=60 ml/min/1.7 3m2 [facility] Comment: The estimated glomerular filtration rate [...] Zac Churchill MD LABORATORY Performing Organization Address [facility] de Phone Number [facility] [address] [address] * MAGNESIUM (11/12/2023 11:36 AM CDT) Magnesium 2.3 1.6 - 2.6 mg/dL [facility] Blood 11/12/2023 11:3 6 AM CDT 11/12/2023 11:49 AM CDT Zac Churchill MD LABORATORY Performing Organization Address [facility] de Phone Number [facility] [address] [address] * (ABNORMAL) CBC WITH PLATELET (11/12/2023 11:36 AM CDT) WBC 17.87(H) 4.00 - 10.00 k/cmm [facility] RBC 3.40(L) 4.60 - 6.00 m/cmm [facility] Hgb 9.6(L) 13.1 - 17.5 g/dL [facility] Hematocrit 31.1(L) 40.0 - 51.0 % [facility] MCV 91.5 80.0 - 100.0 fL [facility] MCH 28.2 25.0 - 32.0 pg [facility] MCHC 30.9(L) 31.0 - 36.0 g/dL [facility] RDW 13.6 11.5 - 14.5 % [facility] Plt 287 150 - 400 k/cmm [facility] MPV 10.5 6.5 - 12.5 fL [facility] Blood 11/12/2023 11:3 6 AM CDT 11/12/2023 11:48 AM CDT Zac Churchill MD LABORATORY [facility] [address] [place] [address] * (ABNORMAL) POC GLUCOSE (11/12/2023 11:05 AM CDT) POC Glucose 147(H) 70 - 100 mg/dL [facility] POINT OF CARE Blood 11/12/2023 11:0 5 AM CDT Jessica Grullon MD LABORATORY Performing Organization Address [facility]/[place] [address], [place] * (ABNORMAL) POC GLUCOSE (11/12/2023 10:09 AM CDT) POC Glucose 163(H) 70 - 100 mg/dL [facility] Blood 11/12/2023 10:0 9 AM CDT Jessica Grullon MD LABORATORY Performing Organization Address [facility] Co de Phone Number [place] [phone], [place] * (ABNORMAL) POC GLUCOSE (11/12/2023 9:04 AM CDT) POC Glucose 146(H) 70 - 100 mg/dL [facility] POINT OF [facility] Blood 11/12/2023 9:04 AM CDT Jessica Grullon MD LABORATORY Performing Organization Address [facility]/ZIP Co de Phone Number [facility] [address] [place], [place] [phone], [place] * (ABNORMAL) POC GLUCOSE (11/12/2023 8:01 AM CDT) POC Glucose 152(H) 70 - 100 mg/dL [facility] Blood 11/12/2023 8:01 AM CDT Jessica Grullon MD LABORATORY [facility] POINT OF CARE [address] [place] [address], [place] * (ABNORMAL) POC GLUCOSE (11/12/2023 7:00 AM CDT) POC Glucose 147(H) 70 - 100 mg/dL [facility] POINT OF CARE Blood 11/12/2023 7:00 AM CDT Jessica Grullon MD LABORATORY Performing Organization Address [facility] Co de Phone Number [facility] POINT [facility] [address] [place] [address], [place] * (ABNORMAL) POC GLUCOSE (11/12/2023 6:02 AM CDT) POC Glucose 169(H) 70 - 100 mg/dL [facility] POINT OF CARE Blood 11/12/2023 6:02 AM CDT Jessica Grullon MD LABORATORY Performing Organization Address [facility]/ZIP Co de Phone Number [facility] POINT OF [facility] [address] [place] [address], [place] * (ABNORMAL) POC GLUCOSE (11/12/2023 5:00 AM CDT) POC Glucose 166(H) 70 - 100 mg/dL [facility] POINT OF CARE Blood 11/12/2023 5:00 AM CDT Jessica Grullon MD LABORATORY Performing Organization Address [facility]/ZIP Co de Phone Number [facility] POINT OF CARE [address] [place] [address], [place] * (ABNORMAL) POC GLUCOSE (11/12/2023 4:02 AM CDT) POC Glucose 178(H) 70 - 100 mg/dL [facility] POINT OF CARE Blood 11/12/2023 4:02 AM CDT Jessica Grullon MD LABORATORY Performing Organization Address [facility] Co de Phone Number [facility] [address] [place], [place] [phone], [place] * (ABNORMAL) POC GLUCOSE (11/12/2023 3:17 AM CDT) POC Glucose 176(H) 70 - 100 mg/dL [facility] POINT OF [facility] Blood 11/12/2023 3:17 AM CDT Jessica Grullon MD LABORATORY Performing Organization Address [facility] Co de Phone Number [facility] [address] [place] [phone], [place] * (ABNORMAL) POC GLUCOSE (11/12/2023 2:14 AM CDT) POC Glucose 197(H) 70 - 100 mg/dL [facility] Blood 11/12/2023 2:14 AM CDT Jessica Grullon MD LABORATORY Performing Organization Address [facility] Co de Phone Number [facility] POINT OF [facility] [address] [place] [address], [place] * (ABNORMAL) POC GLUCOSE (11/12/2023 1:02 AM CDT) POC Glucose 195(H) 70 - 100 mg/dL [facility] Blood 11/12/2023 1:02 AM CDT Jessica Grullon MD LABORATORY Performing Organization Address [facility] Co de Phone Number [facility] [address] [place] [address], [place] * (ABNORMAL) POC GLUCOSE (11/12/2023 12:01 AM CDT) POC Glucose 180(H) 70 - 100 mg/dL [facility] POINT OF [facility] Blood 11/12/2023 12:0 1 AM CDT Jessica Grullon MD LABORATORY Performing Organization Address [facility] Co de Phone Number [facility] [address] [place] [address], [place] * (ABNORMAL) POC GLUCOSE (11/11/2023 11:01 PM CDT) POC Glucose 185(H) 70 - 100 mg/dL [facility] Blood 11/11/2023 11:0 1 PM CDT Jessica Grullon MD LABORATORY Performing Organization Address [facility] Co de Phone Number [facility] [address] [place] [address], [place] * (ABNORMAL) POC GLUCOSE (11/11/2023 10:00 PM CDT) POC Glucose 167(H) 70 - 100 mg/dL [facility] POINT OF [facility] Blood 11/11/2023 10:0 0 PM CDT Jesisca Grullon MD LABORATORY Performing Organization Address [facility] Co de Phone Number [facility] [address] [place] [address], [place] * (ABNORMAL) POC GLUCOSE (11/11/2023 9:01 PM CDT) POC Glucose 148(H) 70 - 100 mg/dL [facility] POINT OF [facility] Blood 11/11/2023 9:01 PM CDT Jessica Grullon MD LABORATORY Performing Organization Address [facility]/ZIP Co de Phone Number [facility] POINT OF CARE [address] [place] [address], * (ABNORMAL) POC GLUCOSE (11/11/2023 8:02 PM CDT) POC Glucose 167(H) 70 - 100 mg/dL [facility] POINT OF CARE Blood 11/11/2023 8:02 PM CDT Jessica Grullon MD LABORATORY Performing Organization Address [facility] Co de Phone Number [facility] POINT OF CARE [address] [place] [address], * (ABNORMAL) POC GLUCOSE (11/11/2023 7:02 PM CDT) Pathologist [facility] POC Glucose 180(H) 70 - 100 mg/dL [facility] POINT OF [facility] Blood 11/11/2023 7:02 PM CDT Jessica Grullon MD LABORATORY Performing Organization Address [facility] Co de Phone Number [facility] [address] [place] [address], [place] * (ABNORMAL) PANEL BASIC METABOLIC (BMP) (11/11/2023 6:42 PM CDT) Pathologist [facility] Sodium 138 135 - 148 mmol/L [facility] Potassium 4.3 3.5 - 5.3 mmol/L [facility] Chloride 103 92 - 108 mmol/L [facility] CO2 25 22 - 30 mmol/L [facility] AnGap 10 8 - 16 mmol/L [facility] Glucose 181(H) 70 - 100 mg/dL [facility] BUN 21(H) 6 - 20 mg/dL [facility] Creatinine 1.03 0.70 - 1.25 mg/dL [facility] Calcium 8.0(L) 8.6 - 10.0 mg/dL [facility] eGFR (2020 CKD-EPI) 91 >=60 ml/min/1.7 3m2 [facility] Comment: The estimated glomerular filtration rate (eGFR) was calculated using the CKD-EPI 2020 creatinine equation, which does not include race as a factor. This equation is validated in individuals 18 years of age and older, and eGFR is normalized to a body surface area of 1.73m^2. Blood 11/11/2023 6:42 PM CDT 11/11/2023 6:47 PM CDT Zac Churchill MD LABORATORY Performing Organization Address [facility] [place] [address] * (ABNORMAL) POC GLUCOSE (11/11/2023 6:05 PM CDT) POC Glucose 173(H) 70 - 100 mg/dL [facility] POINT OF [facility] Blood 11/11/2023 6:05 PM CDT Jessica Grullon MD LABORATORY Performing Organization Address [facility] Co de Phone Number [facility] POINT OF [address] * (ABNORMAL) POC GLUCOSE (11/11/2023 5:01 PM CDT) POC Glucose 163(H) 70 - 100 mg/dL [facility] Blood 11/11/2023 5:01 PM CDT Jessica Grullon MD LABORATORY Performing Organization Address [facility] Co de Phone Number [facility] [place] [address], * (ABNORMAL) POC GLUCOSE (11/11/2023 3:47 PM CDT) POC Glucose 138(H) 70 - 100 mg/dL [facility] POINT OF [facility] Blood 11/11/2023 3:47 PM CDT Jessica Grullon MD LABORATORY Performing Organization Address City/[facility]/ZIP Co de Phone Number [facility] POINT OF CARE [address] [place] [address], [place] * (ABNORMAL) POC GLUCOSE (11/11/2023 3:00 PM CDT) POC Glucose 147(H) 70 - 100 mg/dL [facility] POINT OF CARE Blood 11/11/2023 3:00 PM CDT Jessica Grullon MD LABORATORY Performing Organization Address [facility] Co de Phone Number [facility] POINT OF CARE [address] [place] [address], [place] * (ABNORMAL) POC GLUCOSE (11/11/2023 2:12 PM CDT) POC Glucose 147(H) 70 - 100 mg/dL [facility] POINT OF CARE Blood 11/11/2023 2:12 PM CDT Jessica Grullon MD LABORATORY Performing Organization Address [facility] Co de Phone Number [facility] POINT [facility] [address] [place] [address], [place] * (ABNORMAL) POC GLUCOSE (11/11/2023 1:02 PM CDT) POC Glucose 126(H) 70 - 100 mg/dL [facility] POINT OF CARE Blood 11/11/2023 1:02 PM CDT Jessica Grullon MD LABORATORY Performing Organization Address [facility] Co de Phone Number [facility] POINT OF [facility] [address] [place] [address], [place] * (ABNORMAL) POC GLUCOSE (11/11/2023 12:01 PM CDT) POC Glucose 141(H) 70 - 100 mg/dL [facility] POINT OF CARE Blood 11/11/2023 12:0 1 PM CDT Jessica Grullon MD LABORATORY [facility] OF CARE [address] [place] [address], [place] * (ABNORMAL) POC GLUCOSE (11/11/2023 11:03 AM CDT) POC Glucose 163(H) 70 - 100 mg/dL [facility] POINT OF CARE Blood 11/11/2023 11:0 3 AM CDT Jessica Grullon MD LABORATORY Performing Organization Address [facility]/ZIP Co de Phone Number [facility] [address] [place] [address], [place] * (ABNORMAL) POC GLUCOSE (11/11/2023 9:59 AM CDT) POC Glucose 170(H) 70 - 100 mg/dL [facility] POINT OF [facility] Blood 11/11/2023 9:59 AM CDT Jessica Grullon MD LABORATORY Performing Organization Address [facility] Co de Phone Number [facility] [address] [place] [address], [place] * (ABNORMAL) POC GLUCOSE (11/11/2023 8:56 AM CDT) POC Glucose 166(H) 70 - 100 mg/dL [facility] POINT OF CARE Blood 11/11/2023 8:56 AM CDT Jessica Grullon MD LABORATORY Performing Organization Address [facility]/ZIP Co de Phone Number [facility] POINT OF [facility] [address] [place] [address], [place] * (ABNORMAL) POC GLUCOSE (11/11/2023 8:01 AM CDT) POC Glucose 172(H) 70 - 100 mg/dL [facility] POINT OF CARE Blood 11/11/2023 8:01 AM CDT Jessica Grullon MD LABORATORY Performing Organization Address [facility]/ZIP Co de Phone Number [facility] PO[facility] OF CARE [address] [place] [address], [place] * ICU PHOSPHORUS (11/11/2023 5:36 AM CDT) Phosphorus 2.9 2.5 - 4.5 mg/dL [facility] Blood 11/11/2023 5:36 AM CDT 11/11/2023 5:45 AM CDT Zac Churchill MD LABORATORY Performing Organization Address City/[facility] Co de Phone Number [facility] [address] [address] * (ABNORMAL) ICU MAGNESIUM (11/11/2023 5:36 AM CDT) [facility] Magnesium 1.2(L) 1.6 - 2.6 mg/dL [facility] Blood 11/11/2023 5:36 AM CDT 11/11/2023 5:45 AM CDT Zac Churchill MD LABORATORY Performing Organization Address [facility] Co de Phone Number [facility] [address] [address] * (ABNORMAL) ICU CBC WITH PLTS/AUTO DIFF (11/11/2023 5:36 AM CDT) WBC 17.41(H) 4.00 - 10.00 k/cmm [facility] RBC 2.72(L) 4.60 - 6.00 m/cmm [facility] Hgb 7.8(L) 13.1 - 17.5 g/dL [facility] Hematocrit 24.1(L) 40.0 - 51.0 % [facility] MCV 88.6 80.0 - 100.0 fL [facility] MCH 28.7 25.0 - 32.0 pg [facility] MCHC 32.4 31.0 - 36.0 g/dL [facility] RDW 13.2 11.5 - 14.5 % [facility] Plt 203 150 - 400 k/cmm [facility] MPV 10.1 6.5 - 12.5 fL [facility] Automated Abs Neutrophil 13.29(H) 1.70 - 6.50 k/cmm [facility] Comment:Preliminary ANC, Fin al Result to Follow Judy Cell Slight [facility] Toxic Gran Present [facility] Toxic Vac Present [facility] Abs Neutrophil 13.41(H) 1.70 - 6.50 k/cmm [facility] Abs Lymphocyte 2.96 0.80 - 4.00 k/cmm [facility] Abs Monocyte 0.87 0.20 - 1.00 k/cmm [facility] Abs Basophil 0.17 0.00 - 0.20 k/cmm [facility] Blood 11/11/2023 5:36 AM CDT 11/11/2023 5:45 AM CDT Zac Churchill MD LABORATORY [facility] [place] [address] * (ABNORMAL) ICU PANEL BASIC METABOLIC (BMP) (11/11/2023 5:36 AM CDT) AnGap 9 8 - 16 mmol/L [facility] BUN 15 6 - 20 mg/dL [facility] Calcium 6.0(AA) 8.6 - 10.0 mg/dL [facility] Comment:Critical Result Low Chloride 108 92 - 108 mmol/L [facility] CO2 22 22 - 30 mmol/L [facility] Glucose 135(H) 70 - 100 mg/dL [facility] Creatinine 0.93 0.70 - 1.25 mg/dL [facility] Potassium 3.2(L) 3.5 - 5.3 mmol/L [facility] eGFR (2020 CKD-EPI) 103 >=60 ml/min/1.7 3m2 [facility] Comment: The estimated glomerular filtration rate (eGFR) was calculated using the CKD-EPI 2020 creatinine equation, which does not include race as a factor. This equation is validated in individuals 18 years of age and older, and eGFR is normalized to a body surface area of 1.73m^2. Sodium 139 135 - 148 mmol/L [facility] Blood 11/11/2023 5:36 AM CDT 11/11/2023 5:45 AM CDT Narrative [facility] - 11/11/2023 6:25 AM CDT Critical value for Calcium called to and read back by Sheila Dias RN in STN4 at 11/11/2023 06:24:12 CDT by Larry Fuchs MLS. Zac Churchlil MD LABORATORY [facility] [place] [address] * (ABNORMAL) POC GLUCOSE (11/11/2023 5:28 AM CDT) POC Glucose 149(H) 70 - 100 mg/dL [facility] POINT OF CARE Blood 11/11/2023 5:28 AM CDT Jessica Grullon MD LABORATORY Performing Organization Address City/[facility]/ZIP Co de Phone Number [facility] POINT OF [address] * (ABNORMAL) POC GLUCOSE (11/11/2023 4:29 AM CDT) POC Glucose 159(H) 70 - 100 mg/dL [facility] POINT OF CARE Blood 11/11/2023 4:29 AM CDT Jessica Grullon MD LABORATORY [facility] POINT OF [address] * (ABNORMAL) POC GLUCOSE (11/11/2023 3:28 AM CDT) POC Glucose 153(H) 70 - 100 mg/dL [facility] POINT OF CARE Blood 11/11/2023 3:28 AM CDT Jessica Grullon MD LABORATORY [facility] [address] [place] [address], [place] * (ABNORMAL) POC GLUCOSE (11/11/2023 2:18 AM CDT) POC Glucose 172(H) 70 - 100 mg/dL [facility] POINT OF [facility] Blood 11/11/2023 2:18 AM CDT Jessica Grullon MD LABORATORY Performing Organization Address City/[facility] Co de Phone Number [facility] [address] [place] [address], [place] * (ABNORMAL) POC GLUCOSE (11/11/2023 1:03 AM CDT) POC Glucose 171(H) 70 - 100 mg/dL [facility] POINT [facility] Blood 11/11/2023 1:03 AM CDT Jessica Grullon MD LABORATORY Performing Organization Address City/[facility] Co de Phone Number [facility] [address] [place] [address], [place] * (ABNORMAL) POC GLUCOSE (11/10/2023 11:50 PM CDT) POC Glucose 201(H) 70 - 100 mg/dL [facility] POINT OF [facility] Blood 11/10/2023 11:5 0 PM CDT Jessica Grullon MD LABORATORY Performing Organization Address City/[facility]/ZIP Co de Phone Number [facility] [address] [place] [address], [place] * (ABNORMAL) POC GLUCOSE (11/10/2023 10:39 PM CDT) POC Glucose 192(H) 70 - 100 mg/dL [facility] POINT OF CARE Blood 11/10/2023 10:3 9 PM CDT Jessica Grullon MD LABORATORY [facility] POINT OF CARE [address] [place] [address], [place] * (ABNORMAL) TROP 6H (11/10/2023 10:15 PM CDT) 6H Trop 35 <=35 ng/L [facility] 6H Delta Significan t(A) Not Significant [facility] Blood 11/10/2023 10:1 5 PM CDT 11/10/2023 10:31 PM CDT Jessica Grullon MD LABORATORY Performing Organization Address City/[facility]/ZIP Co de Phone Number [facility] [address] [place] [address] * (ABNORMAL) POC GLUCOSE (11/10/2023 9:36 PM CDT) POC Glucose 200(H) 70 - 100 mg/dL [facility] POINT OF CARE Blood 11/10/2023 9:36 PM CDT Jessica Grullon MD LABORATORY Performing Organization Address City/[facility]/ZIP Co de Phone Number [facility] POINT OF CARE [address] [place] [address], [place] * (ABNORMAL) POC GLUCOSE (11/10/2023 8:17 PM CDT) POC Glucose 221(H) 70 - 100 mg/dL [facility] POINT [facility] CARE Blood 11/10/2023 8:17 PM CDT Jessica Grullon MD LABORATORY Performing Organization Address City/[facility]/ZIP Co de Phone Number [facility] POINT OF CARE [address] [place] [address], [place] * (ABNORMAL) POC GLUCOSE (11/10/2023 7:07 PM CDT) POC Glucose 227(H) 70 - 100 mg/dL [facility] POINT OF CARE Blood 11/10/2023 7:07 PM CDT Jessica Grullon MD LABORATORY Performing Organization Address [facility]/ZIP Co de Phone Number [facility] POINT OF CARE [address] [place] [phone], * (ABNORMAL) TROP 2H (11/10/2023 6:34 PM CDT) Pathologist [facility] 2H Trop 21 <=35 ng/L [facility] 2H Delta Significan t(A) Not Significant [facility] Blood 11/10/2023 6:34 PM CDT 11/10/2023 6:37 PM CDT Jessica Grullon MD LABORATORY Performing Organization Address [facility] Co de Phone Number [facility] [address] [address] * (ABNORMAL) LACTATE (LACTIC ACID) (11/10/2023 6:34 PM CDT) Pathologist [facility] Lactate 14.6(H) 0.7 - 2.1 mmol/L [facility] Blood 11/10/2023 6:34 PM CDT 11/10/2023 6:37 PM CDT Narrative [facility] - 11/10/2023 6:41 PM CDT Send specimen on ice! Jessica Grullon MD LABORATORY Performing Organization Address [facility] Co de Phone Number [facility] [address] [address] * (ABNORMAL) POC GLUCOSE (11/10/2023 6:07 PM CDT) POC Glucose 201(H) 70 - 100 mg/dL [facility] POINT OF CARE Blood 11/10/2023 6:07 PM CDT Jessica Grullon MD LABORATORY Performing Organization Address [facility] Co de Phone Number [facility] POINT OF CARE [address] [place] [address], * (ABNORMAL) POC GLUCOSE (11/10/2023 5:30 PM CDT) POC Glucose 197(H) 70 - 100 mg/dL [facility] POINT OF [facility] Blood 11/10/2023 5:30 PM CDT Jessica Grullon MD LABORATORY Performing Organization Address [facility] de Phone Number [address] [address], [place] * M TUBERCULOSIS AMPLIFICATION (11/10/2023 5:13 PM CDT) Final Report M. tuberculosis complex DNA not detected. [facility] Tissue STRUCTURE OF PERINEAL BODY / Unknown 11/10/2023 5:13 PM CDT 11/11/2023 10:50 AM CDT Comment:2:Perineal tissue Narrative [facility] - 11/11/2023 3:22 PM CDT This assay uses PCR nucleic acid amplification to detect Mycobacterium tuberculosis complex DNA. ??This test was developed and its performance characteristics determined by [facility]. ??It has not been cleared or approved by the U.S. Food and Drug Administration. ??FDA does not require this test to go through premarket FDA review. ??This test is used for clinical purposes. ??It should not be regarded as investigational or for research. ??[facility] is certified under the Clinical Laboratory Improvement Amendments of 1988 (CLIA) as qualified to perform high complexity clinical laboratory testing. Zac Churchill MD LAB MICROBIOLOGY Performing Organization Address City/[facility] Co de Phone Number [facility] [address] [place] [address] * (ABNORMAL) TISSUE CULTURE:INCLUDES GRAM STAIN (11/10/2023 5:13 PM CDT) Final Report Positive Culture Rare Actinomyces species isolated. Most closely resembles Actinomyces hominis. Rare Staphylococcus pettenkoferi isolated. A member of the coagulase-negative Staphylococci. Staphylococcus epidermidis isolated in broth only. No further work-up. Plates held one week. (POS) [facility] Organism ACTINOMYCES SPECIES(POS) [facility] Organism STAPHYLOCOCCUS PETTENKOFERI(POS) [facility] Organism STAPHYLOCOCCUS EPIDERMIDIS(POS) [facility] Gram Stain Report Positive Gram stain Gram stain electronically reported to and acknowledged by: Fermin Osborn MD for Burn on 11/10/2023 18:43:03 by Silver Luna MLS Rare WBC's seen. Many gram positive cocci in clusters. (POS) [facility] Tissue STRUCTURE OF PERINEAL BODY / Unknown 11/10/2023 5:13 PM CDT Zac Churchill MD LAB MICROBIOLOGY Performing Organization Address [facility] de Phone Number [facility] [address] [address] * FUNGUS CULTURE:INCLUDES SUHAS (11/10/2023 5:13 PM CDT) Final Report No fungus isolated. [facility] SUHAS Prep No fungal elements seen. [facility] Tissue STRUCTURE OF PERINEAL BODY / Unknown 11/10/2023 5:13 PM CDT Zac Churchill MD LAB MICROBIOLOGY Performing Organization Address [facility] Co de Phone Number [facility] [address] [address] * (ABNORMAL) ANAEROBE CULTURE (11/10/2023 5:13 PM CDT) Final Report Positive Culture Many mixed anaerobes present. (POS) [facility] Tissue STRUCTURE OF PERINEAL BODY / Unknown 11/10/2023 5:13 PM CDT Zac Churchill MD LAB MICROBIOLOGY Performing Organization Address [facility] Co de Phone Number [facility] [address] [address] * AFB CULTURE:INCLUDES AFB SMEAR (11/10/2023 5:13 PM CDT) Final Report No acid fast bacilli isolated. [facility] Acid Fast Stain No acid fast bacilli seen. [facility] Tissue STRUCTURE OF PERINEAL BODY / Unknown 11/10/2023 5:13 PM CDT Zac Churchill MD LAB MICROBIOLOGY Performing Organization Address [facility] Co de Phone Number [facility] [address] [address] * (ABNORMAL) WOUND CULTURE:GRAM STAIN OPTIONAL (11/10/2023 5:12 PM CDT) Final Report Rare Actinomyces species isolated. Most closely resembles Actinomyces hominis. One colony Staphylococcus epidermidis isolated. (POS) [facility] Organism ACTINOMYCES SPECIES(POS) [facility] Organism STAPHYLOCOCCUS EPIDERMIDIS(POS) [facility] Gram Stain Report Many WBC's seen. Many gram positive cocci in clusters. [facility] Swab STRUCTURE OF PERINEAL BODY / Unknown 11/10/2023 5:12 PM CDT Narrative [facility] - 11/12/2023 3:34 PM CDT Do you want a gram stain: No Zac Churchill MD LAB MICROBIOLOGY Performing Organization Address [facility] Co de Phone Number [facility] [address] [address] * FUNGUS CULTURE:INCLUDES SUHAS (11/10/2023 5:12 PM CDT) Final Report No fungus isolated. [facility] SUHAS Prep No fungal elements seen. [facility] Swab STRUCTURE OF PERINEAL BODY / Unknown 11/10/2023 5:12 PM CDT Zac Churchill MD LAB MICROBIOLOGY Performing Organization Address [facility] Co de Phone Number [facility] [place] [address] [address] * ANAEROBE CULTURE (11/10/2023 5:12 PM CDT) Final Report Moderate mixed anaerobes present. [facility] Swab STRUCTURE OF PERINEAL BODY / Unknown 11/10/2023 5:12 PM CDT Zac Churchill MD LAB MICROBIOLOGY Performing Organization Address [facility] Co de Phone Number [facility] [address] [address] * (ABNORMAL) POC GLUCOSE (11/10/2023 4:28 PM CDT) POC Glucose 236(H) 70 - 100 mg/dL [facility] POINT OF CARE Blood 11/10/2023 4:28 PM CDT Jessica Grullon MD LABORATORY Performing Organization Address [facility] de Phone Number [facility] POINT OF [address] [address], * ED EKG (12-LEAD) (11/10/2023 3:21 PM CDT) 11/10/2023 3:21 PM CDT Impressions [facility] CVIS EKG ORDERS - 11/10/2023 3:21 PM CDT SINUS TACHYCARDIA MINIMAL ST DEPRESSION ??[0.025+ mV ST DEPRESSION] ABNORMAL QRS-T ANGLE ??[QRS-T AXIS DIFFERENCE > 60] NONSPECIFIC ST AND T WAVE ABNORMALITY. ABNORMAL ECG P-R Interval 138 ms QRS Interval 90 ms QT Interval 348 ms QTC Interval 405 ms P [place] 35 QRS [place] 1 T Wave [place] 148 Narrative Procedure Note Jessica Grullon MD - 11/10/2023 IMPRESSION SINUS TACHYCARDIA MINIMAL ST DEPRESSION [0.025+ mV ST DEPRESSION] ABNORMAL QRS-T ANGLE [QRS-T AXIS DIFFERENCE > 60] NONSPECIFIC ST AND T WAVE ABNORMALITY. 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 ??No initial report accompanied the patient and/or Dr. ??JESSICA GRULLON requested an interpretation by me. Technique: ??CT scan of the left lower extremity done on 11/10/2023 with IV contrast. 2 mm axial, sagittal and coronal reconstructions reviewed in soft tissue and bone windows, per the local institution's scanning protocols, which may differ from the [facility] trauma protocols. Findings: ??Subcutaneous emphysema within the [...] MBBS - 11/10/2023 Indication: Patient transferred from [facility] due toFournier's gangrene. No initial report accompanied the patient and/or Dr.ROCHELLE GRULLON requested an interpretation by me. Technique: CT scan of the left lower extremity done on 11/10/2023 with IVcontrast. 2 mm axial, sagittal and coronal reconstructions reviewed insoft tissue and bone windows, per the local institution's scanningprotocols, which may differ from the [facility] trauma protocols. 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 ??No initial report accompanied the patient and/or Dr. ??JESSICA GRULLON requested an interpretation by me. Technique: ??CT scan of the abdomen/pelvis done on 11/10/2023 ??with IV contrast. ??3 mm axial, sagittal and coronal reconstructions reviewed in soft tissue and bone windows, per the local institution's scanning protocols, which may differ from the [facility] trauma protocols. Comparison: Same day scrotal ultrasound. [...] MBBS - 11/10/2023 Indication: Patient transferred from [facility] due toFournier's gangrene. No initial report accompanied the patient and/or .JSESICA GRULLON requested an interpretation by me. Technique: CT scan of the abdomen/pelvis done on 11/10/2023 with IVcontrast. 3 mm axial, sagittal and coronal reconstructions reviewed insoft tissue and bone windows, per the local institution's scanningprotocols, which may differ from the [facility] trauma protocols. Comparison: Same day scrotal ultrasound. [...] (11/10/2023 2:40 PM CDT) Color YELLOW YELLOW [facility] Appearance CLEAR CLEAR [facility] Urine Glucose >=1000(A) NEGATIVE mg/dL [facility] Bili UA NEGATIVE NEGATIVE [facility] Ketones TRACE(A) NEGATIVE [facility] Blood Ur LARGE(A) Neg-Trace [facility] PH Urine 6.5 5.0 - 7.0 [facility] Protein Ur >=600(A) Neg-Trace [facility] Urobilinogen NORMAL NORMAL EU/dL [facility] Nitrite Ur NEGATIVE NEGATIVE [facility] Leuk Est NEGATIVE Neg-Trace [facility] WBC Ur 0-5 0 - 5 perHPF [facility] RBC Ur 11-20(A) 0 - 3 perHPF [facility] SQ EPITH 0-5 0 - 5 perHPF [facility] Mucus 1+ perLPF [facility] Bacteria UA PRESENT [facility] Comment:Presence of bacteria does not necessarily indicate a UTI. The presence of bacteria can indicate a non-clean catch urine specimen. Bacteria should be used in conjunction with other UA results and clinical presentation to assist in diagnosing an infection. Urinalysis Performed at: [facility] Specific [place]anner 1.020 1.003 - 1.030 [facility] Urine 11/10/2023 2:40 PM CDT 11/10/2023 2:47 PM CDT Jessica Grullon MD LABORATORY Performing Organization Address [facility] Co de Phone Number [facility] [place] [phone] * BLOOD AEROBIC/ANAEROBIC CULTURE (11/10/2023 2:39 PM CDT) Final Report No growth after 5 days. [facility] Blood (Peripheral) 11/10/2023 2:39 PM CDT 11/10/2023 4:09 PM CDT Jessica Grullon MD LAB MICROBIOLOGY Performing Organization Address [facility] Co de Phone Number [facility] [address] [address] * BLOOD AEROBIC/ANAEROBIC CULTURE (11/10/2023 2:37 PM CDT) Final Report No growth after 5 days. [facility] Blood (Peripheral) 11/10/2023 2:37 PM CDT 11/10/2023 4:09 PM CDT Jessica Grullon MD LAB MICROBIOLOGY Performing Organization Address [facility]/ZIP Co de Phone Number [facility] [address] [address] * (ABNORMAL) SED RATE (ESR) (11/10/2023 2:31 PM CDT) Sed Rate 120(H) 2 - 10 mm/hr [facility] Blood 11/10/2023 2:31 PM CDT 11/10/2023 2:57 PM CDT Jessica Grullon MD LABORATORY Performing Organization Address [facility] Co de Phone Number [facility] [address] [address] * EXTRA TUBE - SST (11/10/2023 2:31 PM CDT) Pathologist [facility] SST TUBE Stored [facility] Comment:SST tubes (Serum Sep arator) are stored in the lab for 3 days from the collection date. Blood 11/10/2023 2:31 PM CDT 11/10/2023 2:43 PM CDT Jessica Grullon MD LABORATORY Performing Organization Address [facility] Co de Phone Number [facility] [address] [address] * (ABNORMAL) HS TROPONIN (11/10/2023 2:31 PM CDT) [facility] HS Troponin I 49(H) <=35 ng/L [facility] Blood 11/10/2023 2:31 PM CDT 11/10/2023 2:57 PM CDT Narrative [facility] - 11/10/2023 3:25 PM CDT First Occurrence of the Troponin order is to be drawn Stat by Nursing staff on the unit. Jessica Grullon MD LABORATORY Performing Organization Address [facility] Co de Phone Number [facility] [address] [address] * ETHANOL (ETOH) LEVEL, BLOOD (11/10/2023 2:31 PM CDT) [facility] Ethanol Negative Negative g/dL [facility] Blood 11/10/2023 2:31 PM CDT 11/10/2023 2:57 PM CDT Jessica Grullon MD LABORATORY Performing Organization Address [facility] Co de Phone Number [facility] [address] [address] * PTT (APTT) (11/10/2023 2:31 PM CDT) [facility] APTT 32.9 25.0 - 37.0 sec [facility] Blood 11/10/2023 2:31 PM CDT 11/10/2023 2:57 PM CDT Jsesica Grullon MD LABORATORY Performing Organization Address [facility] Co de Phone Number [facility] [address] [address] * ED INR (11/10/2023 2:31 PM CDT) [facility] ED INR 1.1 0.8 - 1.1 [facility] Comment: Warfarin Therapeutic Range: Standard Intensity: 2.0 - 3.0 High Intensity: 2.5 - 3.5 This is a rapid INR screening test which uses whole blood; results may infrequently differ from plasma INR results. If medication adjustments/dosing are required a PT/INR test ([id number]) should be ordered and performed in the main laboratory. Blood 11/10/2023 2:31 PM CDT 11/10/2023 2:41 PM CDT Jessica Grullon MD LABORATORY Performing Organization Address [facility] Co de Phone Number [facility] [address] [address] * (ABNORMAL) LACTATE (LACTIC ACID) (11/10/2023 2:31 PM CDT) [facility] Lactate 2.3(H) 0.7 - 2.1 mmol/L [facility] Blood 11/10/2023 2:31 PM CDT 11/10/2023 2:45 PM CDT Narrative [facility] - 11/10/2023 2:49 PM CDT Send specimen on ice! Jessica Grullon MD LABORATORY Performing Organization Address [facility] Co de Phone Number [facility] [address] [address] * (ABNORMAL) FIBRINOGEN (11/10/2023 2:31 PM CDT) [facility] Fibrinogen >1,000(H) 200 - 400 mg/dL [facility] Blood 11/10/2023 2:31 PM CDT 11/10/2023 2:57 PM CDT Jessica Grullon MD LABORATORY Performing Organization Address [facility] de Phone Number [address] [address] * (ABNORMAL) PANEL HEPATIC FUNCTION (11/10/2023 2:31 PM CDT) Pathologist [facility] Total Protein 7.1 6.4 - 8.3 g/dL [facility] Albumin 2.9(L) 3.8 - 5.1 g/dL [facility] Bili Total 0.3 <=1.2 mg/dL [facility] Bili Direct <0.2 <=0.3 mg/dL [facility] Alk Phos 104 40 - 129 IU/L [facility] Comment:No reference range e stablished for patients <18 years old. ALT (SGPT) 9 <=41 IU/L [facility] AST(SGOT) 14 5 - 40 IU/L [facility] Blood 11/10/2023 2:31 PM CDT 11/10/2023 2:57 PM CDT Jessica Grullon MD LABORATORY [facility] [address] [place] [phone] * (ABNORMAL) ED HEMOGLOBIN TOTAL (ED ONLY) (11/10/2023 2:31 PM CDT) Hgb 12.4(L) 13.1 - 17.5 g/dL [facility] Blood 11/10/2023 2:31 PM CDT 11/10/2023 2:45 PM CDT Jessica Grullon MD LABORATORY [facility] [address] [address] * (ABNORMAL) ED CHEMISTRY LABS(NA,K,CL,CO2,GLU,CREAT,CA-IONIZED,ANION GAP) (11/10/2023 2:31 PM CDT) Sodium 133(L) 135 - 148 mmol/L [facility] Potassium 3.7 3.5 - 5.3 mmol/L [facility] Chloride 93 92 - 108 mmol/L [facility] AnGap 12 8 - 16 mmol/L [facility] Glucose 304(H) 70 - 100 mg/dL [facility] ICA, Actual 4.14(L) 4.40 - 5.20 mg/dL [facility] ICA, pH Corrected 4.29(L) 4.40 - 5.20 mg/dL [facility] Creatinine 0.98 0.70 - 1.25 mg/dL [facility] BICARB 27(H) 22 - 26 mEq/L [facility] eGFR (2020 CKD-EPI) 97 >=60 ml/min/1.7 3m2 [facility] Comment: The estimated glomerular filtration rate (eGFR) was calculated using the CKD-EPI 2020 creatinine equation, which does not include race as a factor. This equation is validated in individuals 18 years of age and older, and eGFR is normalized to a body surface area of 1.73m^2. Blood 11/10/2023 2:31 PM CDT 11/10/2023 2:45 PM CDT Jessica Grullon MD LABORATORY [facility] [address] [place] [address] * (ABNORMAL) CBC WITH PLTS/AUTO DIFF (11/10/2023 2:31 PM CDT) WBC 21.95(H) 4.00 - 10.00 k/cmm [facility] RBC 4.26(L) 4.60 - 6.00 m/cmm [facility] Hgb 12.0(L) 13.1 - 17.5 g/dL [facility] Hematocrit 36.3(L) 40.0 - 51.0 % [facility] MCV 85.2 80.0 - 100.0 fL [facility] MCH 28.2 25.0 - 32.0 pg [facility] MCHC 33.1 31.0 - 36.0 g/dL [facility] RDW 12.9 11.5 - 14.5 % [facility] Plt 262 150 - 400 k/cmm [facility] MPV 10.1 6.5 - 12.5 fL [facility] Automated Abs Neutrophil 18.29(H) 1.70 - 6.50 k/cmm [facility] Comment:Preliminary ANC, Fin al Result to Follow Abs Immature Granulocyte 0.26(H) 0.00 - 0.09 k/cmm [facility] Comment:The Immature Granulo cyte Absolute count contains metamyelocytes and myelocytes. Abs Neutrophil 18.29(H) 1.70 - 6.50 k/cmm [facility] Abs Lymphocyte 1.53 0.80 - 4.00 k/cmm [facility] Abs Monocyte 1.83(H) 0.20 - 1.00 k/cmm [facility] Abs Eosinophil 0.00 0.00 - 0.60 k/cmm [facility] Abs Basophil 0.04 0.00 - 0.20 k/cmm [facility] Polychromasia Slight [facility] Dohle Body Present [facility] Toxic Vac Present [facility] Blood 11/10/2023 2:31 PM CDT 11/10/2023 2:57 PM CDT Jessica Grullon MD LABORATORY Performing Organization Address [facility] Co de Phone Number [facility] [address] [address] * (ABNORMAL) BLOOD GASES (11/10/2023 2:31 PM CDT) PH Mayo 7.47(H) 7.32 - 7.42 [facility] PCO2 Mayo 38(L) 41 - 51 mmHG [facility] PO2 Mayo 75(H) 25 - 40 mmHG [facility] Bicarb Mayo 27 24 - 28 mEq/L [facility] O2 Sat Mayo 96 % [facility] Base Exc Mayo 3.7(H) -10.0 - 2.0 mmol/L [facility] Blood Venous 11/10/2023 2:31 PM CDT 11/10/2023 2:45 PM CDT Jessica Grullon MD LABORATORY Performing Organization Address [facility] Co de Phone Number [facility] [address] [address] * ANTIBODY SCREEN (11/10/2023 2:29 PM CDT) Lilly Screen Negative [facility] Blood 11/10/2023 2:29 PM CDT 11/10/2023 2:49 PM CDT Jessica Grullon MD LAB TRANSFUSION SER VICES Performing Organization Address [facility] Co de Phone Number [facility] [address] [address] * BLOOD TYPING-ABO/RH (11/10/2023 2:29 PM CDT) ABORHG A POS [facility] Blood 11/10/2023 2:29 PM CDT 11/10/2023 2:49 PM CDT Jessica Grullon MD LAB TRANSFUSION SER VICES Performing Organization Address [facility] Co de Phone Number [facility] [address] [address] * PRECAUTIONARY TUBE (11/10/2023 2:29 PM CDT) Prec Tube Precautionary Blood Bank Specimen Received. [facility] Blood 11/10/2023 2:29 PM CDT 11/10/2023 2:49 PM CDT Jessica Grullon MD LAB TRANSFUSION SER VICES [facility] [address] [place] [address] * ED US CRITICAL CARE (11/10/2023 2:28 PM CDT) Anatomical Region Laterality Modality Ultrasound Narrative 11/10/2023 3:16 PM CDT ED Critical Care Resuscitative Ultrasound ED Cardiac Ultrasound Body Areas Imaged: Heart, Chest Wall/Lungs, and Inferior Vena Cava Indications:Shock/Sepsis Window: Subxiphoid, Parasternal Short [place], Parasternal Long [place], Apical 4-Chamber, and Bilateral Lungs Findings: The [...] 0900, Last dose on Wed11/17/23 at 0900 [facility] 11/16/2023 8:20 AM CDT 2 g 200 mL/hr 11/15/2023 9:05 AM CDT 2 g 200 mL/hr [facility] 11/14/2023 9:40 AM CDT 2 g 200 mL/hr clindamycin (CLEOCIN) IVPB 900 mg 900 mg, Indication (Select One): Infection - Confirmed, SITE (Select all that apply): Skin/Soft Tissue, Cultures Ordered? Yes, Intravenous, Q 8H, First dose on Wed11/10/23 at 1830, Until Discontinued [facility] 11/12/2023 5:24 PM CDT 900 mg 50 mL/ hr 11/12/2023 9:21 AM CDT 900 mg 50 mL/hr [facility] 11/12/2023 12:23 AM CDT 900 mg [...] 11/12/2023 1:40 PM CDT 600 mg heparin 12669 UNITS/mL injection 7,500 UNITS 7,500 UNITS, Subcutaneous, [...] (Given - Provider: Sheila Dias, RN) heparin 63784 UNITS/mL injection 7,500 UNITS 7,500 UNITS, Subcutaneous, [...] Discontinued 1247 (Dual Sign-Off - Provider: Demetra Brtio RN)1250 (Given - Provider: John Taylor RN) [...] Provider: Demetra Brito RN)1152 (Given - Provider: Dmeetra Brito RN)1430 (Given - Provider: Demetra Brito [...]
--- OUTSIDE RECORDS SUMMARY | 2024-02-28 09:11 | XMS_ITS | Encounter Summary ---
Author Organization [facility] Address [address] [place] [address] Phone Care Team Providers Care Stitch Bonding Machine Drawer In Name Role Phone Unavailable Primary Care Provider [...]
--- OUTSIDE RECORDS SUMMARY | 2024-02-28 09:11 | XMS_ITS | Encounter Summary ---
Author Organization [facility] Address [address] [place] [address] Phone Care Team Providers Care Auto Heater Mechanic Name Role Phone Unavailable Primary Care [...]
--- OUTSIDE RECORDS SUMMARY | 2024-02-28 09:11 | XMS_ITS | Encounter Summary ---
Author Organization [facility] Address [address] [place] [address] Phone Care Team Providers Care Header Up Name Role Phone Unavailable Primary Care Provider Unavailabl e Encounter Details Date Type Department Care Team (Late st Contact Info) Description 11/10/2023 Orders Only [facility] Film Room [facility] Radiology Department DANISHA 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
--- OUTSIDE RECORDS SUMMARY | 2024-02-28 09:11 | XMS_ITS | Encounter Summary ---
Author Organization [facility] Address [address] [place] [address] Phone Care Team Providers Care Maker Up Folding Name Role Phone Unavailable Primary Care Provider [...]
--- OUTSIDE RECORDS SUMMARY | 2024-02-28 09:11 | XMS_ITS | Encounter Summary ---
Author Organization [facility] Address [address] [place] [address] Phone Care Team Providers Care Cleaning Validation Consultant Name Role Phone Unavailable Primary Care [...]
--- OUTSIDE RECORDS SUMMARY | 2024-02-28 09:11 | XMS_ITS | Encounter Summary ---
Author Organization [facility] Address [address] [place] [address] Phone Care Team Providers Care Child Care Team Lead Name Role Phone Unavailable Primary Care [...]
--- OUTSIDE RECORDS SUMMARY | 2024-02-28 09:11 | XMS_ITS | Encounter Summary ---
Author Organization [facility] Address [address] [place] [address] Phone Care Team Providers Care Deportation Examiner Name Role Phone Unavailable Primary Care [...]
--- OUTSIDE RECORDS SUMMARY | 2024-02-28 09:11 | XMS_ITS | Encounter Summary ---
Author Organization [facility] Address [address] [place] [address] Phone Care Team Providers Care Customer Contact Sales Associate Name Role Phone Unavailable Primary Care [...]
--- OUTSIDE RECORDS SUMMARY | 2024-02-28 09:11 | XMS_ITS | Encounter Summary ---
Author Organization [facility] Address [address] [place] [address] Phone Care Team Providers Care Case Reviewer Name Role Phone Unavailable Primary Care Provider [...]
--- OUTSIDE RECORDS SUMMARY | 2024-02-28 09:11 | XMS_ITS | Encounter Summary ---
Author Organization [facility] Address [address] [place] [address] Phone Care Team Providers Care Computational Chemist Name Role Phone Unavailable Primary Care Provider [...]
--- OUTSIDE RECORDS SUMMARY | 2024-02-28 09:11 | XMS_ITS | Encounter Summary ---
Author Organization [facility] Address [address] [place] [address] Phone Care Team Providers Care Call Or Contact Centre Manager Name Role Phone Unavailable Primary Care [...]
--- OUTSIDE RECORDS SUMMARY | 2024-02-28 09:11 | XMS_ITS | Encounter Summary ---
Author Organization [facility] Address [address] [place] [address] Phone Care Team Providers Care Commercial Roofing Estimator Name Role Phone Unavailable Primary Care Provider [...]
--- OUTSIDE RECORDS SUMMARY | 2024-02-28 09:11 | XMS_ITS | Encounter Summary ---
Author Organization [facility] Address [address] [place] [address] Phone Care Team Providers Care Outboard Motorboat Rigger Name Role Phone Unavailable Primary Care Provider [...]
--- OUTSIDE RECORDS SUMMARY | 2024-02-28 09:11 | XMS_ITS | Encounter Summary ---
Author Organization [facility] Address [address] [place] [address] Phone Care Team Providers Care Nail Cutter Name Role Phone Unavailable Primary Care [...]
--- OUTSIDE RECORDS SUMMARY | 2024-02-28 09:11 | XMS_ITS | Encounter Summary ---
Author Organization [facility][Note 3] Address [address] [place] [address] Phone Care Team Providers Care Tab Machine Operator Name Role Phone Unavailable Primary [...]
--- OUTSIDE RECORDS SUMMARY | 2024-02-28 09:11 | XMS_ITS | Encounter Summary ---
Author Organization [facility] Address [address] [place] [address] Phone Care Team Providers Care Piece Maker Name Role Phone Unavailable Primary Care [...]
--- OUTSIDE RECORDS SUMMARY | 2024-02-28 09:11 | XMS_ITS | Encounter Summary ---
Author Organization [facility] Address [address] [place] [address] Phone Care Team Providers Care Daytime Babysitter Name Role Phone Unavailable Primary Care Provider [...]
--- OUTSIDE RECORDS SUMMARY | 2024-02-28 09:11 | XMS_ITS | Encounter Summary ---
Author Organization [facility] Address [address] [place] [address] Phone Care Team Providers Care Art Psychotherapist Or Therapist Name Role Phone Unavailable Primary Care [...]
== END 2024-02-28 09:00 | disposition home or self-care (01) ==
LOC: WOUND 08:59
PROVIDERS: PCP Family Medicine; Visit Provider Nurse Practitioner Family
DX: E11.622 Type 2 diabetes mellitus with other skin ulcer (principal); L98.412 Non-pressure chronic ulcer of buttock with fat layer exposed; Z79.4 Long term (current) use of insulin; Z79.84 Long term (current) use of oral hypoglycemic drugs
CPT/HCPCS: 97597

== ENCOUNTER 2024-03-06 08:52 | Outpatient (CLI) | payer MEDICARE, MEDICAID, SELFPAY ==
--- OUTSIDE RECORDS SUMMARY | 2024-03-06 08:55 | XMS_ITS | Referral Summary ---
Author Organization [facility] Address [email or web address] [address] Phone Care Team Providers Care Sole Conforming Machine Operator Name Role Phone Unavailable Primary Care Provider Unavailabl e Source Comments [employer] [employer] is fully rolled out on [employer]. 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[facility]) Discharge Disposition: Discharged to home or self care 01/19/2024 Travel 01/19/2024 10:30 AM CDT - 01/19/2024 11:59 PM CDT Hospital Encounter [facility] [address] [place] [address] Nikolia Martinez MD Routine, Hbo - Discharge Disposition: Discharged to home or self care 01/18/2024 Travel 01/18/2024 10:06 AM CDT - 01/18/2024 11:59 PM CDT Hospital Encounter [facility] [address] [place] [address] David Cortes MD Routine, Hbo - Discharge Disposition: Discharged to home or self care 01/17/2024 Travel 01/17/2024 9:42 AM CDT - 01/17/2024 11:59 PM CDT Hospital Encounter [facility] [address] [place] [address] Dougals Morris II, MD Routine, Hbo - Discharge Disposition: Discharged to home or self care 01/12/2024 Travel 01/12/2024 9:53 AM CDT - 01/12/2024 11:59 PM CDT Hospital Encounter [facility] [address] [place] [address] David Cortes MD Routine, Hbo - Discharge Disposition: Discharged to home or self care 01/11/2024 Travel 01/11/2024 10:01 AM CDT - 01/11/2024 11:59 PM CDT Hospital Encounter [facility] [address] [place] [address] Nikolai Martinez MD Routine, Hbo - Discharge Disposition: Discharged to home or self care 01/07/2024 Travel 01/07/2024 10:06 AM CDT - 01/07/2024 11:59 PM CDT Hospital Encounter [facility] [address] [place] [address] Maggy Horan MD Routine, Hbo - Discharge Disposition: Discharged to home or self care 01/06/2024 Travel 01/06/2024 9:40 AM CDT - 01/06/2024 11:59 PM CDT Hospital Encounter [facility] [address] [place] [address] David Cortes MD Discharge Disposition: Discharged to home or self care 01/06/2024 9:50 AM CDT - 01/06/2024 11:59 PM CDT Hospital Encounter [facility] [address] [place] [address] David Cortes MD Routine, Hbo - Discharge Disposition: Discharged to home or self care 01/05/2024 Orders Only [facility] [address] [place] [address] Talita Patel MD 01/05/2024 Travel 01/05/2024 9:32 AM CDT - 01/05/2024 11:59 PM CDT Hospital Encounter [facility] [address] [place] [address] David Cortes MD Routine, Hbo - Discharge Disposition: Discharged to home or self care 01/04/2024 Travel 01/04/2024 10:16 AM CDT - 01/04/2024 11:59 PM CDT Hospital Encounter [facility] [address] [address] Douglas Morris II, MD Routine, Hbo - Discharge Disposition: Discharged to home or self care 01/03/2024 Travel 01/03/2024 9:33 AM CDT - 01/03/2024 11:59 PM CDT Hospital Encounter [facility] [address] [place] [address] Narcisa Sanford MD Routine, Hbo - Discharge Disposition: Discharged to home or self care 12/31/2023 Travel 12/31/2023 9:51 AM CDT - 12/31/2023 11:59 PM CDT Hospital Encounter [facility] [address] [place] [address] Douglas Morris II, MD Routine, Hbo - Discharge Disposition: Discharged to home or self care 12/31/2023 1:00 PM CDT [facility] [address] [address] Afshan Patino DPM S/P foot surgery, right (Primary Dx) Discharge Disposition: Discharged to home or self care 12/30/2023 Travel 12/30/2023 9:49 AM CDT - 12/30/2023 11:59 PM CDT Hospital Encounter [facility] [address] [place] [address] David Cortes MD Routine, Hbo - Discharge Disposition: Discharged to home or self care 12/29/2023 Travel 12/29/2023 9:38 AM CDT - 12/29/2023 11:59 PM CDT Hospital Encounter [facility] [address] [place] [address] Nikolai Martinez MD Routine, Hbo - Discharge Disposition: Discharged to home or self care 12/28/2023 Telephone [facility] [address] [place] [address] Dayanna Rodriguez RN Care Coordination (Called to discuss outpatient HBOT schedule) 12/27/2023 Travel 12/27/2023 9:00 AM CDT Nurse Only [facility] [address] [place] [address] Afshan Patino DPM Discharge Disposition: Discharged to home or self care 12/24/2023 Travel 12/24/2023 10:00 AM CDT [facility] [address] [place] [address] 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, HOSPICE MASSAGE THERAPIST, CURING ROOM SUPERVISOR 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); Soft tissue infection Discharge Disposition: Discharged to home or self care 12/23/2023 Travel 12/23/2023 9:33 AM CDT - 12/23/2023 11:59 PM CDT Hospital Encounter [facility] [address] [place] [address] Nikolai Martinez MD Routine, Hbo - Discharge Disposition: Discharged to home or self care 12/22/2023 Travel 12/22/2023 9:43 AM CDT - 12/22/2023 11:59 PM CDT Hospital Encounter [facility] [address] [place] [address] Narcisa Sanford MD Routine, Hbo - Discharge Disposition: Discharged to home or self care 12/20/2023 Travel 12/20/2023 9:34 AM CDT - 12/20/2023 11:59 PM CDT Hospital Encounter [facility] [address] [place] [address] Shawn Vines MD Routine, Hbo - Discharge Disposition: Discharged to home or self care 12/17/2023 Travel 12/17/2023 1:45 PM CDT [facility] [address] [address] Afshan Patino DPM S/P foot surgery, right (Primary Dx) Discharge Disposition: Discharged to home or self care 12/14/2023 Telephone [facility] Medicine [address] [place] [address] Aretha Damon MD Follow-up 12/07/2023 3:48 PM CDT - 12/14/2023 12:38 PM CDT Hospital Encounter [facility] Orthopaedic [address] [place] [address] Eusebio Vivar MD Rajagopal, Shrikar S, MD Oeding, Afshan Torres, Igor Cosby MD Lawson, Michael J, MD Other acute osteomyelitis of left foot ([facility]) Discharge Disposition: Discharged/transd to home (care by home health service organization) 12/10/2023 10:39 AM CDT Anesthesia Event OR P4 [address] [place] [address] Clint White MD Bojanov, Krasimir G, MD 12/10/2023 9:49 AM CDT - 12/10/2023 11:34 AM CDT Surgery OR P4 [address] [place] [address] Afshan Patino DPM REVISION, AMPUTATION SITE, POSSIBLE PARTIAL FOOT AMPUTATION, IRRIGATION AND DEBRIDMENT, POSSIBLE SERIAL PROCEDURES, L LOWER EXTREMITY 12/08/2023 7:28 AM CDT Anesthesia Event OR P4 [address] [place] [address] Dontae Higgins MD Bojanov, Krasimir G, MD 12/08/2023 7:35 AM CDT - 12/08/2023 9:13 AM CDT Surgery OR P4 [address] [place] [address] Che Campos DPM PARTIAL AMPUTATION FOOT 12/07/2023 3:07 PM CDT - 12/07/2023 11:59 PM CDT Hospital Encounter [facility] [address] [address] Che Campos DPM Discharge Disposition: Discharged to home or self care 12/07/2023 Travel 12/07/2023 2:30 PM CDT [facility] [address] [place] [address] Che Campos DPM 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); Cellulitis of left lower extremity Discharge Disposition: Discharged to home or self care from Last 3 Months Allergies No known [...] 12/10/2023 Other acute osteomyelitis of left foot ([facility]) 12/07/2023 At risk for sexually transmi tted infection due to unprotected sex 11/12/2023 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 Resolved Problems Problem Noted Date Diagnosed [...] CDT Other acute osteomyelitis of left foot ([facility]) REVISION, AMPUTATION SITE, LOWER EXTREMITY Urgent [...] CDT Other acute osteomyelitis of left foot ([facility]) PC CULTURE FUNGI ISOLATION W-WO [...] Routine 12/07/2023 3:23 PM CDT 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 POC Glucose 323(H) 70 - 100 mg/dL [facility] Blood 01/19/2024 12:2 2 PM CDT Nikolai Martinez MD LABORATORY Performing Organization Address City/State/[facility] Co de Phone Number [facility] [address] [place] [address], * HBO ANGIOGRAPHY EXTREMITY UNILATERAL (01/06/2024 9:40 [...] time period is included. Vancomycin 17.0 mcg/mL [facility] Comment:Expected Range (Trou gh): 10-20 mcg/ml Blood 12/13/2023 5:24 PM CDT 12/13/2023 5:46 PM CDT Narrative [facility] - 12/13/2023 6:34 PM CDT Please ensure trough level drawn prior to next vancomycin dose. Thank you Peak or trough:->Trough Eusebio Perez PharmD LABORATORY [facility] [address] [address] * (ABNORMAL) CBC WITH PLTS/AUTO DIFF (12/11/2023 5:50 AM CDT) Only the most recent of3 resultswithin the time period is included. WBC 8.72 4.00 - 10.00 k/cmm [facility] [...] [facility] [address] [address] * (ABNORMAL) PANEL BASIC METABOLIC (BMP) (12/11/2023 5:50 AM CDT) Only the most recent of4 resultswithin the time period is included. CO2 25 22 - 30 mmol/L [facility] [...] [facility] [place] [address] * XR CHEST 2 VIEWS PA + [...] ?12/10/2023 12:07 CDT ? Accession Number: ? [id number] ? Surgical Pathology Final Report Specimen Type: [...] clinical information: Afshan Patino DPM LAB PATHOLOGY [facility] [address] [address] * HBO TCO2 MEASUREMENT COMPLETE (12/09/2023 10:25 [...] Reg 2002; 10:198-207. Bridget QUIÑONEZ et al. [facility] 2009, Vol. 36(1). ? [place] 07/27/13 Afshan Shafer PA-C HYPERBARIC CHAMMADELIN R * (ABNORMAL) SED RATE (ESR) (12/08/2023 4:47 PM CDT) Only the most recent of2 resultswithin the time period is included. Sed Rate 120(H) 2 - 10 mm/hr [facility] Blood 12/08/2023 4:47 PM CDT 12/08/2023 5:07 PM CDT Afshan Shafer PA-C LABORATORY Performing Organization Address City/[facility] Co de Phone Number [facility] [address] [address] * (ABNORMAL) GLYCOSYLATED HGB - A1C (12/08/2023 [...] Afshan Shafer PA-C LABORATORY Performing Organization Address [facility] Co de Phone Number [facility] [address] [address] * (ABNORMAL) C-REACTIVE PROTEIN (12/08/2023 4:47 PM CDT) Only the most recent of2 resultswithin the time period is included. C-Reactive Protein 77(H) <=4 mg/L [facility] Blood 12/08/2023 4:47 PM CDT 12/08/2023 5:07 PM CDT Afshan Shafer PA-C LABORATORY Performing Organization Address [facility] Co de Phone Number [facility] [address] [address] * (ABNORMAL) CBC WITH PLATELET (12/08/2023 4:47 PM CDT) Pathologist [facility] WBC 10.39(H) 4.00 - 10.00 k/cmm [facility] [...] Afshan Shafer PA-C LABORATORY Performing Organization Address [facility]/ZIP Co de Phone Number [facility] [address] [address] * (ABNORMAL) TISSUE CULTURE:INCLUDES GRAM STAIN (12/08/2023 7:51 AM CDT) Only the most recent of2 resultswithin the time period is included. [facility] Final Report Positive Culture Few METHICILLIN RESISTANT Staphylococcus aureus (MRSA) isolated. 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 For susceptibility, see previous report on culture from wound culture collected 7/30/24. (POS) [facility] [...] to and acknowledged by: Dr. Igor Marquez hospitalist [place] 12/09/2023 12:48:27. Elizabeth Schwartz MLS. (POS) [facility] LAB Bone STRUCTURE OF LEFT FOOT / Unknown 12/08/2023 7:51 AM CDT 12/08/2023 9:00 AM CDT Comment:2. Bone first metata rsal left foot Chekatelin Campos DP LAB MICROBIOLOGY Performing Organization Address [facility] Co de Phone Number [facility] [address] [address] * FUNGUS CULTURE:INCLUDES SUHAS (12/08/2023 7:51 AM CDT) Only the most recent of2 resultswithin the time period is included. Final Report No fungus isolated. [facility] SUHAS Prep No fungal elements seen. [facility] Bone STRUCTURE OF LEFT FOOT / Unknown 12/08/2023 7:51 AM CDT 12/08/2023 9:00 AM CDT Comment:2. Bone first metata rsal left foot LearnVestbitt DPM LAB MICROBIOLOGY Performing Organization Address [facility] Co de Phone Number [facility] [address] [address] * ANAEROBE CULTURE (12/08/2023 7:51 AM CDT) Only the most recent of2 resultswithin the time period is included. Final Report No anaerobes isolated. [facility] Bone STRUCTURE OF LEFT FOOT / Unknown 12/08/2023 7:51 AM CDT 12/08/2023 9:00 AM CDT Comment:2. Bone first metata rsal left foot Che Campos DPM LAB MICROBIOLOGY Performing Organization Address [facility] Co de Phone Number [facility] [address] [address] * EXTRA TUBE - DARK GREEN (12/07/2023 4:05 PM CDT) DARK GREEN TUBE Stored [facility] Comment:Dark Green tubes (Li thium Heparin) are stored in the lab for 1 day from the collection date. Blood 12/07/2023 4:05 PM CDT 12/07/2023 4:24 PM CDT Eusebio Vivar MD LABORATORY Performing Organization Address [facility] de Phone Number [facility] [address] [address] * EXTRA TUBE - BLUE (12/07/2023 4:05 PM CDT) BLUE TUBE [facility] Comment:Blue top(Sodium citr ate) tubes are kept for 3 days from the collection date. Blood 12/07/2023 4:05 PM CDT 12/07/2023 4:24 PM CDT Eusebio Vivar MD LABORATORY Performing Organization Address [facility] de Phone Number [facility] [address] [address] * (ABNORMAL) ED CHEMISTRY LABS(NA,K,CL,CO2,GLU,CREAT,CA-IONIZED,ANION GAP) (12/07/2023 4:05 PM CDT) Sodium 139 135 - 148 mmol/L [facility] [...] Vivar MD LABORATORY Performing Organization Address [facility] de Phone Number [facility] [address] [address] * LACTATE (LACTIC ACID) (12/07/2023 4:05 PM CDT) Lactate 2.1 0.7 - 2.1 mmol/L [facility] Blood 12/07/2023 4:05 PM CDT 12/07/2023 4:27 PM CDT Narrative [facility] - 12/07/2023 4:27 PM CDT Send specimen on ice! Eusebio Vivar MD LABORATORY Performing Organization Address [facility] Co de Phone Number [facility] [address] [address] * BLOOD AEROBIC/ANAEROBIC CULTURE (12/07/2023 4:05 PM CDT) Final Report No growth after 5 days. [facility] Blood (Peripheral) 12/07/2023 4:05 PM CDT 12/07/2023 7:55 PM CDT Eusebio Vivar MD LAB MICROBIOLOGY Performing Organization Address [facility] Co de Phone Number [facility] [address] [address] * (ABNORMAL) WOUND CULTURE:GRAM STAIN OPTIONAL (12/07/2023 [...] [facility] Gram Stain Report No PMN's seen. No organisms seen. [facility] Swab STRUCTURE OF LEFT FOOT / Unknown 12/07/2023 3:00 PM CDT 12/07/2023 5:23 PM CDT Narrative [facility] - 12/10/2023 10:38 AM CDT Left [...] Vancomycin MICROSCAN JORDY 1: Sensitive Che Campos [facility] LAB MICROBIOLOGY [facility] [address] [address] * HIV COMBO (11/15/2023 7:39 AM CDT) HIV Antigen-Antibody Nonreactive Nonreactive [facility] Comment:Performance characte ristics have not been established with this test on patients less than 2 years of age. Blood 11/15/2023 7:39 AM CDT 11/15/2023 7:58 AM CDT Zac Jackson MD LABORATORY [facility] [address] [place] [address] from Last 3 Months or Most Recently Relevant to Health Maintenance Additional Health Concerns Infection Onset Date Last Indicated MRSA 11/17/2023 12/08/2023 Advance Directives For more information, please contact: [phone] * Full Code (Latest Code Status on [...]
--- OUTSIDE RECORDS SUMMARY | 2024-03-06 08:55 | XMS_ITS | Encounter Summary ---
Author Organization [facility] Address [address] [place] [address] Phone Care Team Providers Care Engravings Polisher Name Role Phone Unavailable Primary Care Provider Unavailabl e Reason for Visit * Reason Comments Follow-up Encounter Details Date Type Department Care Team (Late st Contact Info) Description 01/20/2024 1:30 PM CDT Office Visit [facility] [address] [address] Afshan Sims, DPMore[place] [address] [phone] S/P foot surgery, right (Primary Dx); 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[facility]) Discharge Disposition: Discharged to home or [...] Schizophrenia History of TBI --Patient is own [facility] Clinic plan: -Discussed postoperative course and expectations -Advised patient that the incision has healed -Okay to begin wearing regular tennis shoes -[facility] earlier for diabetic shoes and inserts. They will be delivered to patient once they are ready. He is to begin wearing diabetic shoes and inserts once they arrive -There are no restrictions from our standpoint for the patient -[place] paperwork completed and returned to patient Return [...] He is hoping he can move his fdc. 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
--- OUTSIDE RECORDS SUMMARY | 2024-03-06 08:55 | XMS_ITS | Encounter Summary ---
Author Organization [facility] Address [address] [place] [address] Phone Care Team Providers Care Senior Product Development Manager Name Role Phone Unavailable Primary Care [...]
--- OUTSIDE RECORDS SUMMARY | 2024-03-06 08:55 | XMS_ITS | Encounter Summary ---
Author Organization [facility] Address [address] [place] [address] Phone Care Team Providers Care Railroad Cook Name Role Phone Unavailable Primary Care Provider Unavailabl e Encounter Details Date Type Department Care Team (Latest Contact Info) Description 01/19/2024 10:30 AM CDT - 01/19/2024 11:59 PM CDT Hospital Encounter [facility] [address] [place] [address] Nikolai Martinez MD [address] [facility] [address] [place], [place] [address] Ziqxrrz, Mwn - [address] Discharge Disposition: Discharged to home or self [...] hesitate to call the Hyperbaric Department at [phone] during clinic hours or page personal computer specialist staff with any updates, questions, or [...] POC GLUCOSE (01/19/2024 12:22 PM CDT) Pathologist [facility] POC Glucose 323(H) 70 - 100 mg/dL [facility] POINT [facility] CARE Blood 01/19/2024 12:2 2 PM CDT Nikolai Martinez MD LABORATORY Performing Organization Address City/State/[facility] Co de Phone Number [facility] - [facility] CARE [address] [place] [address], * (ABNORMAL) POC GLUCOSE (01/19/2024 9:58 AM CDT) POC Glucose 353(H) 70 - 100 mg/dL [facility] - POINT OF CARE Blood 01/19/2024 9:58 AM CDT Provider Unknown LABORATORY [facility] CARE [address] [place] [address], documented in this encounter Visit Diagnoses Diagnosis Soft tissue infection- Primary Unspecified infectious and parasitic diseases Other acute osteomyelitis of left foot ([facility]) documented in this encounter Additional Health Concerns Infection Onset Date Last Indicated Resolved Time 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
--- OUTSIDE RECORDS SUMMARY | 2024-03-06 08:55 | XMS_ITS | Encounter Summary ---
Author Organization [facility] Address [address] [place] [address] Phone Care Team Providers Care Cookie Breaker Name Role Phone Unavailable Primary Care Provider [...]
--- OUTSIDE RECORDS SUMMARY | 2024-03-06 08:55 | XMS_ITS | Encounter Summary ---
Author Organization [facility] Address [address] [place] [address] Phone Care Team Providers Care Video Game Developer Name Role Phone Unavailable Primary Care Provider Unavailabl e Encounter Details Date Type Department Care Team (Late st Contact Info) Description 01/20/2024 9:54 AM CDT - 01/20/2024 11:59 PM CDT Hospital Encounter [facility] Hyperbaric [address] [facility] [address] [place], [place] [id number] SophiaDavid ward MD [address] [facility] [address] [place], [place] [id number] Routine, Hbo - [id number] Discharge Disposition: Discharged to home or self [...] hesitate to call the Hyperbaric Department at [phone] during clinic hours or page public information director staff with any updates, questions, or concerns. Associated attestation - David Cortes MD - 01/20/2024 2:49 PM CDT Continuous attending physician supervision was provided throughout the hyperbaric oxygen treatment.I have reviewed and agree with treatment note created by the Hyperbaric Medicine Fellow, Dr. Mcconnell. David Cortes MD, 01/20/2024 2:49 PM * David Cortes MD - 01/20/2024 10:[address] [facility] HYPERBARIC MEDICINE TREATMENT SUMMARY Consulting physician: Dr. [...] urged continued close follow up with his Channel Account Manager for local wound care and monitoring. We noted our availability should future concern of complicated wound develop or as needed surrounding and in support of surgical interventions. Please do not hesitate to call the Hyperbaric Department at [phone] during clinic hours or page public information director staff with any updates, questions, or concerns. [...] left foot ([facility]) documented in this encounter Additional Health Concerns Infection Onset Date Last Indicated Resolved Time 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
--- OUTSIDE RECORDS SUMMARY | 2024-03-06 08:55 | XMS_ITS | Clinical Summary ---
Author Organization [employer] Address [address] [place] [address] Phone Care Team Providers Care Rehab Services Aide Name Role Phone Unavailable Primary Care Provider Unavailabl e Source Comments [employer] is fully rolled out on Virtual View App. 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[facility]) Discharge Disposition: Discharged to home or self care 01/20/2024 9:54 AM CDT - 01/20/2024 11:59 PM CDT Hospital Encounter [facility] [address] [place] [address] David Cortes MD Routine, Hbo - Discharge Disposition: Discharged to home or self care 01/20/2024 Travel 01/19/2024 10:30 AM CDT - 01/19/2024 11:59 PM CDT Hospital Encounter [facility] [address] [place] [address] Nikolai Martinez MD Routine, Hbo - Discharge Disposition: Discharged to home or self care 01/19/2024 Travel 01/18/2024 10:06 AM CDT - 01/18/2024 11:59 PM CDT Hospital Encounter [facility] [address] [place] [address] David Cortes MD Routine, Hbo - Discharge Disposition: Discharged to home or self care 01/18/2024 Travel 01/17/2024 9:42 AM CDT - 01/17/2024 11:59 PM CDT Hospital Encounter [facility] [address] [place] [address] Douglas Morris II, MD Routine, Hbo - Discharge Disposition: Discharged to home or self care 01/17/2024 Travel 01/12/2024 9:53 AM CDT - 01/12/2024 11:59 PM CDT Hospital Encounter [facility] [address] [place] [address] David Cortes MD Routine, Hbo - Discharge Disposition: Discharged to home or self care 01/12/2024 Travel 01/11/2024 10:01 AM CDT - 01/11/2024 11:59 PM CDT Hospital Encounter [facility] [address] [place] [address] Nikolai Martinez MD Routine, Hbo - Discharge Disposition: Discharged to home or self care 01/11/2024 Travel 01/07/2024 10:06 AM CDT - 01/07/2024 11:59 PM CDT Hospital Encounter [facility] [address] [place] [address] Maggy Horan MD Routine, Hbo - Discharge Disposition: Discharged to home or self care 01/07/2024 Travel 01/06/2024 9:50 AM CDT - 01/06/2024 11:59 PM CDT Hospital Encounter [facility] [address] [place] [address] David Cortes MD Routine, Hbo - Discharge Disposition: Discharged to home or self care 01/06/2024 9:40 AM CDT - 01/06/2024 11:59 PM CDT Hospital Encounter [facility] [address] [place] [phone] David Cortes MD Discharge Disposition: Discharged to home or self care 01/06/2024 Travel 01/05/2024 9:32 AM CDT - 01/05/2024 11:59 PM CDT Hospital Encounter [facility] [address] [place] [address] David Cortes MD Routine, Hbo - Discharge Disposition: Discharged to home or self care 01/05/2024 Orders Only [facility] [address] [place] [address] Talita Patel MD 01/05/2024 Travel 01/04/2024 10:16 AM CDT - 01/04/2024 11:59 PM CDT Hospital Encounter [facility] [address] [place] [address] Douglas Morris II, MD Routine, Hbo - Discharge Disposition: Discharged to home or self care 01/04/2024 Travel 01/03/2024 9:33 AM CDT - 01/03/2024 11:59 PM CDT Hospital Encounter [facility] [address] [place] [address] Narcisa Sanford MD Routine, Hbo - Discharge Disposition: Discharged to home or self care 01/03/2024 Travel 12/31/2023 1:00 PM CDT [facility] [address] [address] Suzy Patino DPM S/P foot surgery, right (Primary Dx) Discharge Disposition: Discharged to home or self care 12/31/2023 9:51 AM CDT - 12/31/2023 11:59 PM CDT Hospital Encounter [facility] [address] [address] Douglas Morirs II, MD Routine, Hbo - Discharge Disposition: Discharged to home or self care 12/31/2023 Travel 12/30/2023 9:49 AM CDT - 12/30/2023 11:59 PM CDT Hospital Encounter [facility] [address] [address] David Cortes MD Routine, Hbo - Discharge Disposition: Discharged to home or self care 12/30/2023 Travel 12/29/2023 9:38 AM CDT - 12/29/2023 11:59 PM CDT Hospital Encounter [facility] [address] [address] Nikolai Martinez MD Routine, Hbo - Discharge Disposition: Discharged to home or self care 12/29/2023 Travel 12/28/2023 Telephone [facility] [address] [address] Dayanna Rodriguez RN Care Coordination (Called to discuss outpatient HBOT schedule) 12/27/2023 9:00 AM CDT Nurse Only [facility] [address] [place] [address] Suzy Patino, DPM Discharge Disposition: Discharged to home or self care 12/27/2023 Travel 12/24/2023 10:00 AM CDT [facility] [address] [place] [address] 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, CHEMICAL DEPENDENCY COUNSELOR, BODY AND FRAME TECHNICIAN 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); Soft tissue infection Discharge Disposition: Discharged to home or self care 12/24/2023 Travel 12/23/2023 9:33 AM CDT - 12/23/2023 11:59 PM CDT Hospital Encounter [facility] [address] [address] Nikolai Martinez MD Routine, Hbo - Discharge Disposition: Discharged to home or self care 12/23/2023 Travel 12/22/2023 9:43 AM CDT - 12/22/2023 11:59 PM CDT Hospital Encounter [facility] [address] [place] [address] Narcisa Sanford MD Routine, Hbo - Discharge Disposition: Discharged to home or self care 12/22/2023 Travel 12/20/2023 9:34 AM CDT - 12/20/2023 11:59 PM CDT Hospital Encounter [facility] [address] [place] [address] Shawn Vines MD Routine, Hbo - Discharge Disposition: Discharged to home or self care 12/20/2023 Travel 12/17/2023 1:45 PM CDT [facility] [address] [address] Suzy Patino DPM S/P foot surgery, right (Primary Dx) Discharge Disposition: Discharged to home or self care 12/17/2023 Travel 12/14/2023 Telephone [facility] Medicine [address] [place] [address] Aretha Damon MD Follow-up 12/10/2023 10:39 AM CDT Anesthesia Event OR [facility]4 [address] [place] [address] Clint White MD Bojanov, Krasimir G, MD 12/10/2023 9:49 AM CDT - 12/10/2023 11:34 AM CDT Surgery OR [facility] [address] [place] [address] Suzy Patino DPM REVISION, AMPUTATION SITE, POSSIBLE PARTIAL FOOT AMPUTATION, IRRIGATION AND DEBRIDMENT, POSSIBLE SERIAL PROCEDURES, L LOWER EXTREMITY 12/08/2023 7:35 AM CDT - 12/08/2023 9:13 AM CDT Surgery OR [facility] [address] [place] [address] Che Campos DPM PARTIAL AMPUTATION FOOT 12/08/2023 7:28 AM CDT Anesthesia Event OR [facility]4 [address] [place] [address] Dontae Higgins MD Bojanov, Krasimir G, MD 12/07/2023 3:48 PM CDT - 12/14/2023 12:38 PM CDT Hospital Encounter [facility] Orthopaedic [address] [place] [address] Eusebio Vivar MD Rajagopal, Shrikar S, MD Oeding, Suzy Torres, Igor Cosby MD Lawson, Clint Gomez MD Other acute osteomyelitis of left foot ([facility]) Discharge Disposition: Discharged/transd to home (care by home health service organization) 12/07/2023 3:07 PM CDT - 12/07/2023 11:59 PM CDT [facility]counter [facility] [address] [address] Che Campos DPM Discharge Disposition: Discharged to home or self care 12/07/2023 2:30 PM CDT [facility] [address] [address] Che Campos DPM 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[facility]) (Primary Dx); Cellulitis of left lower extremity Discharge Disposition: Discharged to home or self care 12/07/2023 Travel from Last 3 Months Immunizations Name Administration [...] CDT Other acute osteomyelitis of left foot ([facility]) REVISION, AMPUTATION SITE, LOWER EXTREMITY Urgent [...] CDT Other acute osteomyelitis of left foot ([facility]) PC CULTURE FUNGI ISOLATION W-WO PRESUMPTIVE [...] Routine 12/07/2023 3:23 PM CDT 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 POC Glucose 323(H) 70 - 100 mg/dL [facility] Blood 01/19/2024 12:2 2 PM CDT Nikolai Martinez MD LABORATORY [facility] [address] [place] [address], * HBO ANGIOGRAPHY EXTREMITY UNILATERAL (01/06/2024 9:40 [...] time period is included. Vancomycin 17.0 mcg/mL [facility] Comment:Expected Range (Trou gh): 10-20 mcg/ml Blood 12/13/2023 5:24 PM CDT 12/13/2023 5:46 PM CDT Narrative [facility] - 12/13/2023 6:34 PM CDT Please ensure trough level drawn prior to next vancomycin dose. Thank you Peak or trough:->Trough Eusebio Perez PharmD LABORATORY [facility] [address] [place] [address] * (ABNORMAL) CBC WITH PLTS/AUTO DIFF (12/11/2023 5:50 AM CDT) Only the most recent of3 resultswithin the time period is included. WBC 8.72 4.00 - 10.00 k/cmm [facility] RBC 3.82(L) 4.60 - 6.00 m/cmm [facility] Hgb 10.6(L) 13.1 - 17.5 g/dL [facility] Hematocrit 32.4(L) 40.0 - 51.0 % [facility] MCV 84.8 80.0 - 100.0 fL [facility] MCH 27.7 25.0 - 32.0 pg [facility] MCHC 32.7 31.0 - 36.0 g/dL [facility] RDW 13.5 11.5 - 14.5 % [facility] Plt 400 150 - 400 k/cmm [facility] MPV 9.3 6.5 - 12.5 fL [facility] Automated Abs Neutrophil 4.22 1.70 - 6.50 k/cmm [facility] Comment:Preliminary ANC, Fin al Result to Follow Abs Immature Granulocyte 0.09 0.00 - 0.09 k/cmm [facility] Comment:The Immature Granulo cyte Absolute count contains metamyelocytes and myelocytes. Abs Neutrophil 4.22 1.70 - 6.50 k/cmm [facility] Abs Lymphocyte 2.59 0.80 - 4.00 k/cmm [facility] Abs Monocyte 1.00 0.20 - 1.00 k/cmm [facility] Abs Eosinophil 0.79(H) 0.00 - 0.60 k/cmm [facility] Abs Basophil 0.03 0.00 - 0.20 k/cmm [facility] Blood 12/11/2023 5:50 AM CDT 12/11/2023 6:26 AM CDT Igor Glover MD LABORATORY [facility] [address] [place] [address] * (ABNORMAL) PANEL BASIC METABOLIC (BMP) (12/11/2023 5:50 AM CDT) Only the most recent of4 resultswithin the time period is included. CO2 25 22 - 30 mmol/L [facility] Glucose 178(H) 70 - 100 mg/dL [facility] BUN 9 6 - 20 mg/dL [facility] Creatinine 0.92 0.70 - 1.25 mg/dL [facility] Calcium 9.0 8.6 - 10.0 mg/dL [facility] Sodium 136 135 - 148 mmol/L [facility] Potassium 4.1 3.5 - 5.3 mmol/L [facility] Chloride 100 92 - 108 mmol/L [facility] eGFR (2020 CKD-EPI) 105 >=60 ml/min/1.7 3m2 [facility] Comment: The estimated glomerular filtration rate (eGFR) was calculated using the CKD-EPI 2020 creatinine equation, which does not include race as a factor. This equation is validated in individuals 18 years of age and older, and eGFR is normalized to a body surface area of 1.73m^2. AnGap 11 8 - 16 mmol/L [facility] Blood 12/11/2023 5:50 AM CDT 12/11/2023 6:25 AM CDT Igor Glover MD LABORATORY [facility] [address] [address] * XR CHEST 2 VIEWS PA + [...] ?12/10/2023 12:07 CDT ? Accession Number: ? [id number] ? Surgical Pathology Final Report Specimen Type: [...] Attending Pathologist. DDB/DDB 12.10.2023 13:39 [facility] AP Specimen FOOT STRUCTURE / Unknown 12/10/2023 11:07 AM CDT Comment:OR: Routine gross an d microscopic examination Tissue: 1st metatarsel left foot, cut margin Site: foot Additional clinical information: Suzy Patino DPM LAB PATHOLOGY [facility] [address] [address] * HBO TCO2 MEASUREMENT COMPLETE (12/09/2023 10:25 AM CDT) Anatomical Region Laterality Modality Other Narrative 12/09/2023 12:55 PM CDT Images from the original result were not included. By: David Corets MD Stephanie Low is a 43 y.o. [...] Reg 2002; 10:198-207. Bridget QUIÑONEZ et al. [facility] 2009, Vol. 36(1). ? [place] 07/27/13 Suzy Shafer PA-C HYPERBARIC CHAMBE R * (ABNORMAL) SED RATE (ESR) (12/08/2023 4:47 PM CDT) Only the most recent of2 resultswithin the time period is included. [facility] Sed Rate 120(H) 2 - 10 mm/hr [facility] Blood 12/08/2023 4:47 PM CDT 12/08/2023 5:07 PM CDT Suzy Shafer PA-C LABORATORY Performing Organization Address City/[facility] Co de Phone Number [facility] [address] [address] * (ABNORMAL) GLYCOSYLATED HGB - A1C (12/08/2023 4:47 PM CDT) [facility] Hemoglobin A1C 8.5(H) 4.0 - 5.6 % [facility] Comment: Increased risk for diabetes (prediabetes): [...] Glucose 197(H) 68 - 114 [facility] Comment: The estimated Average Glucose (eAG) was calculated using an equation derived from a study of 507 adults with type 1, type 2, or no diabetes. Minority populations were underrepresented and children were not included. The eAG is not equivalent to a fasting glucose concentration. Blood 12/08/2023 4:47 PM CDT 12/08/2023 5:07 PM CDT Narrative [facility] - 12/08/2023 6:01 PM CDT If not done in the last 30 days. Suzy Shafer PA-C LABORATORY Performing Organization Address City/[facility]/ZIP Co de Phone Number [facility] [address] [address] * (ABNORMAL) C-REACTIVE PROTEIN (12/08/2023 4:47 PM CDT) Only the most recent of2 resultswithin the time period is included. [facility]-Reactive Protein 77(H) <=4 mg/L [facility] Blood 12/08/2023 4:47 PM CDT 12/08/2023 5:07 PM CDT Suzy Shafer PA-C LABORATORY Performing Organization Address [facility] Co de Phone Number [facility] [address] [address] * (ABNORMAL) CBC WITH PLATELET (12/08/2023 4:47 PM CDT) Pathologist [facility] WBC 10.39(H) 4.00 - 10.00 k/cmm [facility] RBC 3.59(L) 4.60 - 6.00 m/cmm [facility] Hgb 9.8(L) 13.1 - 17.5 g/dL [facility] Hematocrit 30.8(L) 40.0 - 51.0 % [facility] MCV 85.8 80.0 - 100.0 fL [facility] MCH 27.3 25.0 - 32.0 pg [facility] MCHC 31.8 31.0 - 36.0 g/dL [facility] RDW 13.5 11.5 - 14.5 % [facility] Plt 314 150 - 400 k/cmm [facility] MPV 9.3 6.5 - 12.5 fL [facility] Blood 12/08/2023 4:47 PM CDT 12/08/2023 5:07 PM CDT Suzy Shafer PA-C LABORATORY Performing Organization Address [facility] Co de Phone Number [facility] [address] [address] * (ABNORMAL) TISSUE CULTURE:INCLUDES GRAM STAIN (12/08/2023 7:51 AM CDT) Only the most recent of2 resultswithin the time period is included. [facility] Final Report Positive Culture Few METHICILLIN RESISTANT Staphylococcus aureus (MRSA) isolated. 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 For susceptibility, see previous report on culture from wound culture collected 12/07/23. (POS) [facility] Organism METHICILLIN RESISTANT STAPHYLOCOCCUS AUREUS (MRSA)(POS) [facility] Gram Stain Report Corrected Report Positive Gram stain Rare PMN's seen. Rare gram positive cocci. Gram stain electronically reported to and acknowledged by: Dr. Healy Marker from OR at ??12/08/2023 10:09:09 by Jacklyn Easley MLS. Removed Pleomorphic gram variable bacilli from report. Results electronically reported to and acknowledged by: Dr. Igor Glover [facility] 12/09/2023 12:48:27. Elizabeth Schwartz MLS. (POS) [facility] Bone STRUCTURE OF LEFT FOOT / Unknown 12/08/2023 7:51 AM CDT 12/08/2023 9:00 AM CDT Comment:2. Bone first metata rsal left foot Chekatelin Campos DPInvestGlass LAB MICROBIOLOGY Performing Organization Address [facility] de Phone Number [facility] [address] [address] * FUNGUS CULTURE:INCLUDES SUHAS (12/08/2023 7:51 AM CDT) Only the most recent of2 resultswithin the time period is included. Final Report No fungus isolated. [facility] SUHAS Prep No fungal elements seen. [facility] Bone STRUCTURE OF LEFT FOOT / Unknown 12/08/2023 7:51 AM CDT 12/08/2023 9:00 AM CDT Comment:2. Bone first metata rsal left foot Brazzleboxbitt DPM LAB MICROBIOLOGY Performing Organization Address [facility] Co de Phone Number [facility] [address] [address] * ANAEROBE CULTURE (12/08/2023 7:51 AM CDT) Only the most recent of2 resultswithin the time period is included. Final Report No anaerobes isolated. [facility] Bone STRUCTURE OF LEFT FOOT / Unknown 12/08/2023 7:51 AM CDT 12/08/2023 9:00 AM CDT Comment:2. Bone first metata rsal left foot Che Campos DPMorelia LAB MICROBIOLOGY Performing Organization Address [facility] Co de Phone Number [facility] [address] [address] * EXTRA TUBE - DARK GREEN (12/07/2023 4:05 PM CDT) DARK GREEN TUBE Stored [facility] Comment:Dark Green tubes (Li thium Heparin) are stored in the lab for 1 day from the collection date. Blood 12/07/2023 4:05 PM CDT 12/07/2023 4:24 PM CDT Eusebio Vivar MD LABORATORY Performing Organization Address [facility] Co de Phone Number [facility] [address] [address] * EXTRA TUBE - BLUE (12/07/2023 4:05 PM CDT) BLUE TUBE [facility] Comment:Blue top(Sodium citr ate) tubes are kept for 3 days from the collection date. Blood 12/07/2023 4:05 PM CDT 12/07/2023 4:24 PM CDT Eusebio Vivar MD LABORATORY Performing Organization Address [facility] de Phone Number [facility] [address] [address] * (ABNORMAL) ED CHEMISTRY LABS(NA,K,CL,CO2,GLU,CREAT,CA-IONIZED,ANION GAP) (12/07/2023 4:05 PM CDT) Sodium 139 135 - 148 mmol/L [facility] Chloride 97 92 - 108 mmol/L [facility] AnGap 15 8 - 16 mmol/L [facility] Glucose 284(H) 70 - 100 mg/dL [facility] ICA, Actual 4.89 4.40 - 5.20 mg/dL [facility] ICA, pH Corrected 4.74 4.40 - 5.20 mg/dL [facility] Creatinine 1.26(H) 0.70 - 1.25 mg/dL [facility] BICARB 26 22 - 26 mEq/L [facility] eGFR (2020 CKD-EPI) 72 >=60 ml/min/1.7 3m2 [facility] Comment: The estimated glomerular filtration rate (eGFR) was calculated using the CKD-EPI 2020 creatinine equation, which does not include race as a factor. This equation is validated in individuals 18 years of age and older, and eGFR is normalized to a body surface area of 1.73m^2. Potassium 4.5 3.5 - 5.3 mmol/L [facility] Blood 12/07/2023 4:05 PM CDT 12/07/2023 4:27 PM CDT Eusebio Vivar MD LABORATORY Performing Organization Address [facility] de Phone Number [facility] [address] [address] * LACTATE (LACTIC ACID) (12/07/2023 4:05 PM CDT) Lactate 2.1 0.7 - 2.1 mmol/L [facility] Blood 12/07/2023 4:05 PM CDT 12/07/2023 4:27 PM CDT Narrative [facility] - 12/07/2023 4:27 PM CDT Send specimen on ice! Eusebio Vivar MD LABORATORY Performing Organization Address [facility] Co de Phone Number [facility] [address] [address] * BLOOD AEROBIC/ANAEROBIC CULTURE (12/07/2023 4:05 PM CDT) Final Report No growth after 5 days. [facility] Blood (Peripheral) 12/07/2023 4:05 PM CDT 12/07/2023 7:55 PM CDT Eusebio Vivar MD LAB MICROBIOLOGY Performing Organization Address [facility] Co de Phone Number [facility] [address] [address] * (ABNORMAL) WOUND CULTURE:GRAM STAIN OPTIONAL (12/07/2023 3:00 PM CDT) Final Report Rare METHICILLIN RESISTANT Staphylococcus aureus (MRSA) isolated. 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 Rare Corynebacterium striatum group isolated. A member of the diphtheroid bacilli. (POS) [facility] Organism METHICILLIN RESISTANT STAPHYLOCOCCUS AUREUS (MRSA)(POS) [facility] Organism CORYNEBACTERIUM STRIATUM GROUP(POS) [facility] Gram Stain Report No PMN's seen. No organisms seen. [facility] Swab STRUCTURE OF LEFT FOOT / Unknown 12/07/2023 3:00 PM CDT 12/07/2023 5:23 PM CDT Narrative [facility] - 12/10/2023 10:38 AM [...] Vancomycin MICROSCAN JORDY 1: Sensitive Che Campos [facility] MICROBIOLOGY [facility] [address] [address] * HIV COMBO (11/15/2023 7:39 AM CDT) HIV Antigen-Antibody Nonreactive Nonreactive [facility] Comment:Performance characte ristics have not been established with this test on patients less than 2 years of age. Blood 11/15/2023 7:39 AM CDT 11/15/2023 7:58 AM CDT Zac Jackson MD LABORATORY [facility] [address] [place] [address] from Last 3 Months or Most Recently Relevant to Health Maintenance Additional Health Concerns Infection Onset Date Last Indicated MRSA 11/17/2023 12/08/2023 Advance Directives For more information, please contact: [phone] * Full Code (Latest Code Status on [...]
--- OUTSIDE RECORDS SUMMARY | 2024-03-06 08:56 | XMS_ITS | Encounter Summary ---
Author Organization [facility] [place] Address [address] [place] [address] Phone Care Team Providers Care Arbitrator Name Role Phone Unavailable Primary Care Provider Unavailabl e Encounter Details Date Type Department Care Team (Late st Contact Info) Description 01/06/2024 9:40 AM CDT - 01/06/2024 11:59 PM CDT Hospital Encounter [facility] [place] [place] Hyperbaric [address] [place], [place] [id number] David Cortes MD [address] [facility] [address] [place], [place] [address] Discharge Disposition: Discharged to home or self [...]
--- OUTSIDE RECORDS SUMMARY | 2024-03-06 08:56 | XMS_ITS | Encounter Summary ---
Author Organization [facility] Address [address] [place] [address] Phone Care Team Providers Care Casino Floor Walker Name Role Phone Unavailable Primary Care Provider [...]
--- OUTSIDE RECORDS SUMMARY | 2024-03-06 08:56 | XMS_ITS | Encounter Summary ---
Author Organization [facility] Address [address] [place] [address] Phone Care Team Providers Care Pecan Sheller Name Role Phone Unavailable Primary Care Provider Unavailabl e Encounter Details Date Type Department Care Team (Late st Contact Info) Description 01/12/2024 9:53 AM CDT - 01/12/2024 11:59 PM CDT Hospital En[place] [facility] [place] [address] [facility] [address] [place], [place] [address] SophiaDavid ward MD 701 [facility] 825 [place], [place] [address] Routine, Hbo - 53854 Discharge Disposition: Discharged to home or self [...] hesitate to call the Hyperbaric Department at [phone] during clinic hours or page carbon rod inserter staff with any updates, questions, or concerns. [...] POC Glucose 414(H) 70 - 100 mg/dL [facility] - POINT OF CARE Blood 01/12/2024 10:0 2 AM CDT David Cortes MD LABORATORY [facility] - POINT OF CARE [address] [place] [address], documented in this encounter Visit Diagnoses Diagnosis Soft tissue infection- Primary Unspecified infectious and parasitic diseases Other acute osteomyelitis of left foot (CMS/HHS) documented in this encounter Additional Health Concerns Infection Onset Date Last Indicated Resolved Time 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
--- OUTSIDE RECORDS SUMMARY | 2024-03-06 08:56 | XMS_ITS | Encounter Summary ---
Author Organization [facility] Address [address] [place] [address] Phone Care Team Providers Care Plate Stacker Name Role Phone Unavailable Primary Care Provider [...]
--- OUTSIDE RECORDS SUMMARY | 2024-03-06 08:56 | XMS_ITS | Encounter Summary ---
Author Organization [facility] Address [address] [place] [address] Phone Care Team Providers Care Imaging Specialist Name Role Phone Unavailable Primary Care Provider Unavailabl e Encounter Details Date Type Department Care Team (Late st Contact Info) Description 01/05/2024 9:32 AM CDT - 01/05/2024 11:59 PM CDT Hospital Encounter [facility] [place] [address] [facility] 9[address] [place], [place] [address] SophiaDavid ward MD 701 [facility] 825 [place], [place] [address] Routine, Hbo - [id number] Discharge Disposition: Discharged to home or self [...] hesitate to call the Hyperbaric Department at [phone] during clinic hours or page drafter construction staff with any updates, questions, or concerns. [...] POC Glucose 328(H) 70 - 100 mg/dL [facility] - POINT OF CARE Blood 01/05/2024 9:54 AM CDT David Cortes MD LABORATORY [facility] - POINT OF CARE [address] [place] [address], documented in this encounter Visit Diagnoses Diagnosis Soft tissue infection- Primary Unspecified infectious and parasitic diseases Other acute osteomyelitis of left foot ([facility]/HHS) documented in this encounter Additional Health Concerns Infection Onset Date Last Indicated Resolved Time 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
--- OUTSIDE RECORDS SUMMARY | 2024-03-06 08:56 | XMS_ITS | Encounter Summary ---
Author Organization [facility] Address [address] [place] [address] Phone Care Team Providers Care Councilman Name Role Phone Unavailable Primary Care Provider Unavailabl e Encounter Details Date Type Department Care Team (Late st Contact Info) Description 01/18/2024 10:06 AM CDT - 01/18/2024 11:59 PM CDT Hospital En[place] [facility] [place] [address] [facility] [address] [place], [place] [address] SophiaDavid ward MD 701 [facility] 825 [place], [place] [address] Routine, Hbo - [id number] Discharge Disposition: Discharged to home or self [...] hesitate to call the Hyperbaric Department at [phone] during clinic hours or page weapons electrical engineering officer staff with any updates, questions, or [...]
--- OUTSIDE RECORDS SUMMARY | 2024-03-06 08:56 | XMS_ITS | Encounter Summary ---
Author Organization [facility] Address [address] [facility] [place] [address] Phone Care Team Providers Care Software Analyst Name Role Phone Unavailable Primary Care Provider Unavailabl e Encounter Details Date Type Department Care Team (Late st Contact Info) Description 01/05/2024 Orders Only [facility] [place]baric [address] [place], [place] [address] Talita Patel MD [address] [place], [place] [phone] Social History Tobacco Use Types Packs/Day Years [...]
--- OUTSIDE RECORDS SUMMARY | 2024-03-06 08:56 | XMS_ITS | Encounter Summary ---
Author Organization [facility] Address [address] [place] [address] Phone Care Team Providers Care Senior Grants Officer Name Role Phone Unavailable Primary Care Provider Unavailabl e Encounter Details Date Type Department Care Team (Latest Contact Info) Description 01/04/2024 10:16 AM CDT - 01/04/2024 11:59 PM CDT Hospital Encounter [facility] Hyperbaric [address] [facility] 980 [place] [address] Masters, Douglas Osuna II, MD 701 [facility] 825 [place], [place] [address] Routine, Eus - [id number] Discharge Disposition: Discharged to home or self [...] hesitate to call the Hyperbaric Department at [phone] during clinic hours or page ski production supervisor staff with any updates, questions, or [...] POC Glucose 340(H) 70 - 100 mg/dL [facility] - POINT OF CARE Blood 01/04/2024 10:0 3 AM CDT Douglas Morris II, MD LABORATORY [facility] - POINT OF CARE [address] [place] [address], documented in this encounter Visit Diagnoses Diagnosis Soft tissue infection- Primary Unspecified infectious and parasitic diseases Other acute osteomyelitis of left foot ([facility]/HHS) documented in this encounter Additional Health Concerns Infection Onset Date Last Indicated Resolved Time 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
--- OUTSIDE RECORDS SUMMARY | 2024-03-06 08:56 | XMS_ITS | Encounter Summary ---
Author Organization [facility] Address [address] [place] [address] Phone Care Team Providers Care Automatic Equipment Technician Name Role Phone Unavailable Primary Care [...]
--- OUTSIDE RECORDS SUMMARY | 2024-03-06 08:56 | XMS_ITS | Encounter Summary ---
Author Organization [facility] Address [address] [place] [address] Phone Care Team Providers Care Supervisor Pipe Joints Name Role Phone Unavailable Primary Care Provider [...]
--- OUTSIDE RECORDS SUMMARY | 2024-03-06 08:56 | XMS_ITS | Encounter Summary ---
Author Organization [facility] Address [address] [place] [address] Phone Care Team Providers Care Body Liner Name Role Phone Unavailable Primary Care [...]
--- OUTSIDE RECORDS SUMMARY | 2024-03-06 08:56 | XMS_ITS | Encounter Summary ---
Author Organization [facility] Address [address] [place] [address] Phone Care Team Providers Care Critical Care Educator Name Role Phone Unavailable Primary Care Provider Unavailabl e Encounter Details Date Type Department Care Team (Latest Contact Info) Description 01/17/2024 9:42 AM CDT - 01/17/2024 11:59 PM CDT Hospital Encounter [facility] [place] 701 [facility] 980 [place] [address] Masters, Douglas Osuna II, MD 701 [facility] 825 [place], [place] [address] Routine, Ugf - [id number] Discharge Disposition: Discharged to home or self [...] multiple numbers for his convenience locally in [place] for evaluation. HPI, problem list, nursing notes, [...] hesitate to call the Hyperbaric Department at [phone] during clinic hours or page radon inspector staff with any updates, questions, or concerns. [...] POC Glucose 288(H) 70 - 100 mg/dL [facility] - POINT OF CARE Blood 01/17/2024 12:1 9 PM CDT Douglas Morris II, MD LABORATORY [facility] - POINT OF CARE [address] [place] [address], * (ABNORMAL) POC GLUCOSE (01/17/2024 9:59 AM CDT) POC Glucose 323(H) 70 - 100 mg/dL [facility] - POINT OF CARE Blood 01/17/2024 9:59 AM CDT Narrative Authorizing Provider Result Kiki Morris II, MD LABORATORY Performing Organization Address City/State/[facility] Co de Phone Number [facility] - POINT OF CARE [address] [place] [address], documented in this encounter Visit Diagnoses Diagnosis Soft tissue infection- Primary Unspecified infectious and parasitic diseases Other acute osteomyelitis of left foot ([facility]) documented in this encounter Administered Medications Inactive [...]
--- OUTSIDE RECORDS SUMMARY | 2024-03-06 08:56 | XMS_ITS | Encounter Summary ---
Author Organization [facility] Address [address] [facility] [place] [address] Phone Care Team Providers Care Senior Software Developer Name Role Phone Unavailable Primary Care Provider Unavailabl e Encounter Details Date Type Department Care Team (Latest Contact Info) Description 01/03/2024 9:33 AM CDT - 01/03/2024 11:59 PM CDT Hospital En[place] [facility] [place] [address] [facility] 9[address] [place] [address] Narcisa Sanford MD [address] [place], [place] [address] Routine, Vbd - [id number] Discharge Disposition: Discharged to home or self [...] hesitate to call the Hyperbaric Department at [phone] during clinic hours or page glassware maker demonstrator staff with any updates, questions, or [...] POC Glucose 305(H) 70 - 100 mg/dL [facility] - POINT OF CARE Blood 01/03/2024 9:50 AM CDT Narcisa Sanford MD LABORATORY [facility] - POINT OF CARE [address] [place] [address], documented in this encounter Visit Diagnoses Diagnosis [...]
--- OUTSIDE RECORDS SUMMARY | 2024-03-06 08:56 | XMS_ITS | Encounter Summary ---
Author Organization [facility] Address [address] [place] [address] Phone Care Team Providers Care Indirect Fire Infantryman Name Role Phone Unavailable Primary Care Provider [...]
--- OUTSIDE RECORDS SUMMARY | 2024-03-06 08:56 | XMS_ITS | Encounter Summary ---
Author Organization [facility] Address [address] [place] [address] Phone Care Team Providers Care Group Program Manager Name Role Phone Unavailable Primary Care [...]
--- OUTSIDE RECORDS SUMMARY | 2024-03-06 08:56 | XMS_ITS | Encounter Summary ---
Author Organization [facility] Address [address] [place] [address] Phone Care Team Providers Care Well Head Pumper Name Role Phone Unavailable Primary Care Provider [...]
--- OUTSIDE RECORDS SUMMARY | 2024-03-06 08:56 | XMS_ITS | Encounter Summary ---
Author Organization [facility] Address [address] [place] [address] Phone Care Team Providers Care Solid Tire Finisher Name Role Phone Unavailable Primary Care Provider Unavailabl e Encounter Details Date Type Department Care Team (Latest Contact Info) Description 01/11/2024 10:01 AM CDT - 01/11/2024 11:59 PM CDT Hospital Encounter [facility] Hyperbaric [address] [place] [address] Nikolai Martinez MD 701 [facility] [place], [place] [address] Huvgqil, Gjn - [phone] Discharge Disposition: Discharged to home or self [...] hesitate to call the Hyperbaric Department at [phone] during clinic hours or page information technology security manager staff with any updates, questions, or concerns. Mayuri Hinojosa APRN, COMMUNITY ENGAGEMENT LEADER, 01/11/2024 12:21 PM Continuous attending physician supervision was provided throughout the hyperbaric oxygen treatment. I have reviewed and agree with the treatment note created by Nurse Practitioner: Mayuri Hinojosa APRN, SNOW BLOWER. documented in this encounter Plan of Treatment Not on file documented as of this encounter Procedures Procedure Name Priority Date/Time Associated Diagnosis Comments POC GLUCOSE Routine 01/11/2024 10:00 AM CDT documented in this encounter Results * (ABNORMAL) POC GLUCOSE (01/11/2024 10:00 AM CDT) POC Glucose 362(H) 70 - 100 mg/dL [facility] - POINT OF CARE Blood 01/11/2024 10:0 0 AM CDT Nikolai Martinez MD LABORATORY [facility] - POINT OF CARE [address] [place] [address], documented in this encounter Visit Diagnoses Diagnosis Soft tissue infection- Primary Unspecified infectious and parasitic diseases Other acute osteomyelitis of left foot (CMS/HHS) documented in this encounter Additional Health Concerns Infection Onset Date Last Indicated Resolved Time 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
--- OUTSIDE RECORDS SUMMARY | 2024-03-06 08:56 | XMS_ITS | Encounter Summary ---
Author Organization [facility] Address [address] [place] [address] Phone Care Team Providers Care Harness Brusher Name Role Phone Unavailable Primary Care Provider Unavailabl e Encounter Details Date Type Department Care Team (Late st Contact Info) Description 01/06/2024 9:50 AM CDT - 01/06/2024 11:59 PM CDT Hospital Encounter [facility] Hyperbaric [address] [facility] 9[address] [place], [place] [address] SophiaDavid ward MD 701 [facility] 825 [place], [place] [address] Routine, Hbo - [id number] Discharge Disposition: Discharged to home or self [...] hesitate to call the Hyperbaric Department at [phone] during clinic hours or page operations officer afloat staff with any updates, questions, or concerns. [...] POC Glucose 308(H) 70 - 100 mg/dL [facility] - POINT OF CARE Blood 01/06/2024 9:52 AM CDT David Cortes MD LABORATORY [facility] - POINT OF CARE [address] [place] [address], documented in this encounter Visit Diagnoses Diagnosis Soft tissue infection- Primary Unspecified infectious and parasitic diseases Other acute osteomyelitis of left foot (CMS/HHS) documented in this encounter Additional Health Concerns Infection Onset Date Last Indicated Resolved Time 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
--- OUTSIDE RECORDS SUMMARY | 2024-03-06 08:56 | XMS_ITS | Encounter Summary ---
Author Organization [facility] Address [address] [place] [address] Phone Care Team Providers Care Kitchen Cleaner Name Role Phone Unavailable Primary Care [...]
--- OUTSIDE RECORDS SUMMARY | 2024-03-06 08:56 | XMS_ITS | Encounter Summary ---
Author Organization [facility] Address [address] [place] [address] Phone Care Team Providers Care Leakage Tester Name Role Phone Unavailable Primary Care [...]
--- OUTSIDE RECORDS SUMMARY | 2024-03-06 08:56 | XMS_ITS | Encounter Summary ---
Author Organization [facility] Address [address] [place] [address] Phone Care Team Providers Care Pizza Baker Name Role Phone Unavailable Primary Care Provider Unavailabl e Encounter Details Date Type Department Care Team (Latest Contact Info) Description 01/07/2024 10:06 AM CDT - 01/07/2024 11:59 PM CDT Hospital En[place] [facility] [place] [address] [place] [address] Maggy Horan MD [address] [place], [place] [address] [facility] [place] - [address] Discharge Disposition: Discharged to home or self [...] hesitate to call the Hyperbaric Department at [phone] during clinic hours or page on site [...] POC Glucose 344(H) 70 - 100 mg/dL [facility] - POINT OF CARE Blood 01/07/2024 12:2 7 PM CDT Maggy Horan MD LABORATORY Performing Organization Address [facility] Co de Phone Number [facility] POINT OF CARE [address] [place], [place] [phone], * (ABNORMAL) POC GLUCOSE (01/07/2024 10:20 AM CDT) POC Glucose 357(H) 70 - 100 mg/dL [facility] - POINT OF CARE Blood 01/07/2024 10:2 0 AM CDT Maggy Horan MD LABORATORY Performing Organization Address City/[facility] Co de Phone Number [facility] POINT OF CARE [address] [place] [phone], documented in this encounter Visit Diagnoses Diagnosis Soft tissue infection- Primary Unspecified infectious and parasitic diseases Other acute osteomyelitis of left foot ([facility]) documented in this encounter Additional Health Concerns Infection Onset Date Last Indicated Resolved Time 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
--- OUTSIDE RECORDS SUMMARY | 2024-03-06 08:57 | XMS_ITS | Encounter Summary ---
Author Organization [facility] Address [address] [place] [address] Phone Care Team Providers Care Quality Analyst Name Role Phone Unavailable Primary Care Provider Unavailabl e Encounter Details Date Type Department Care Team (Late st Contact Info) Description 12/30/2023 9:49 AM CDT - 12/30/2023 11:59 PM CDT Hospital En[place] [facility] [place] [address] [facility] 9[address] [place], [place] [address] SophiaDavid ward MD 701 [facility] 825 [place], [place] [address] Routine, Hbo - 73274 Discharge Disposition: Discharged to home or self [...] hesitate to call the Hyperbaric Department at [phone] during clinic hours or page physical education specialist staff with any updates, questions, or [...] POC Glucose 352(H) 70 - 100 mg/dL [facility] - POINT OF CARE Blood 12/30/2023 9:54 AM CDT David Cortes MD LABORATORY [facility] - POINT OF CARE [address] [place] [address], documented in this encounter Visit Diagnoses Diagnosis Soft tissue infection- Primary Unspecified infectious and parasitic diseases Other acute osteomyelitis of left foot ([facility]/HHS) documented in this encounter Administered Medications [...]
--- OUTSIDE RECORDS SUMMARY | 2024-03-06 08:57 | XMS_ITS | Encounter Summary ---
Author Organization [facility] Address [address] [place] [address] Phone Care Team Providers Care Ncqa Specialist Name Role Phone Unavailable Primary Care Provider Unavailabl e Reason for Visit * Reason Comments Post Op Encounter Details Date Type Department Care Team (Late st Contact Info) Description 12/31/2023 1:00 PM CDT [facility] [address] [address] Afshan Sims, DPMorelia [address] [address] S/P foot surgery, right (Primary Dx) Discharge [...] a follow up 3 weeks at the director of front office - Please schedule an appointment with orthotics at the director of front office for diabetic shoes and inserts - A [...] Schizophrenia History of TBI --Patient is own [facility] Clinic plan: -Discussed postoperative [...] left until diabetic shoes and inserts arrive -[place] paperwork completed and returned to patient Return [...]
--- OUTSIDE RECORDS SUMMARY | 2024-03-06 08:57 | XMS_ITS | Encounter Summary ---
Author Organization [facility] Address [address] [place] [address] Phone Care Team Providers Care Mailing Jogger Name Role Phone Unavailable Primary Care Provider Unavailabl e Encounter Details Date Type Department Care Team (Latest Contact Info) Description 12/31/2023 9:51 AM CDT - 12/31/2023 11:59 PM CDT Hospital Encounter [facility] Hyperbaric 701 [facility] 980 [place] [address] Masters, Douglas Osuna II, MD 701 [facility] 825 [place], [place] [address] Routine, Usw - [phone] Discharge Disposition: Discharged to home or self [...] hesitate to call the Hyperbaric Department at [phone] during clinic hours or page collection technician staff with any updates, questions, or [...] POC Glucose 295(H) 70 - 100 mg/dL [facility] - POINT OF CARE Blood 12/31/2023 9:57 AM CDT Douglas Morris II, MD LABORATORY [facility] - POINT OF CARE [address] [place] [address], documented in this encounter Visit Diagnoses Diagnosis Soft tissue infection- Primary Unspecified infectious and parasitic diseases Other acute osteomyelitis of left foot ([facility]/HHS) documented in this encounter Administered [...]
--- OUTSIDE RECORDS SUMMARY | 2024-03-06 08:57 | XMS_ITS | Encounter Summary ---
Author Organization [facility] Address [address] [place] [address] Phone Care Team Providers Care Budget Examiner Name Role Phone Unavailable Primary Care [...] ATTN&SUPVJ HYPRBARIC OXYGEN TX/SESSION Routine, Hbo - [id number] Referral ID Status Reason Start Date Expiration Date V isits Requested Visits Authorized [id number] Auth Not Needed 12/20/2023 03/09/2024 30 30 Encounter Details Date Type Department Care Team (Latest Contact Info) Description 12/23/2023 9:33 AM CDT - 12/23/2023 11:59 PM CDT Hospital Encounter [facility] Hyperbaric [address] [address] Nikolai Martinez MD 701 [place], [place] [address] Routine, Hbo - [id number] Discharge Disposition: Discharged to home or self [...] hesitate to call the Hyperbaric Department at [phone] during clinic hours or page process improvement consultant staff with any updates, questions, or [...] POC Glucose 315(H) 70 - 100 mg/dL [facility] - POINT OF CARE Blood 12/23/2023 10:2 7 AM CDT Nikolai Martinez MD LABORATORY [facility] - POINT OF CARE [address] [place] [address], documented in this encounter Visit Diagnoses Diagnosis Soft tissue infection- Primary Unspecified infectious and parasitic diseases Other acute osteomyelitis of left foot ([facility]) documented in this encounter Additional Health Concerns Infection Onset Date Last Indicated Resolved Time 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
--- OUTSIDE RECORDS SUMMARY | 2024-03-06 08:57 | XMS_ITS | Encounter Summary ---
Author Organization [facility] Address [address] [facility] [place] [address] Phone Care Team Providers Care Sales And Marketing Coordinator Name Role Phone Unavailable Primary Care Provider Unavailabl e Reason for Visit * Reason Onset Date Comments Follow-up 12/14/2023 Encounter Details Date Type Department Care Team (Late st Contact Info) Description 12/14/2023 Telephone [facility] 1 [address] [facility] R5.400 [place], [place] [address] Aretha Damon MD 701 [place], [place] [phone] Follow-up Social History Tobacco Use Types Packs/Day [...]
--- OUTSIDE RECORDS SUMMARY | 2024-03-06 08:57 | XMS_ITS | Encounter Summary ---
Author Organization [facility] Address [address] [place] [address] Phone Care Team Providers Care Crime Scene Photographer Name Role Phone Unavailable Primary Care Provider [...] FULL BODY CHAMBER PER 30 MINUTE INTERVAL UT PHYS/QHP ATTN&SUPVJ HYPRBARIC OXYGEN TX/SESSION Routine, Hbo - 42093 Referral ID Status Reason Start Date Expiration Date V isits Requested Visits Authorized [id number] Auth Not Needed 12/20/2023 03/09/2024 30 30 Encounter Details Date Type Department Care Team (Latest Contact Info) Description 12/20/2023 9:34 AM CDT - 12/20/2023 11:59 PM CDT Hospital En[place] [facility] [place] 701 [facility] 980 [place], [place] [phone] Shawn Vines MD 701 [facility] 825 [place], [place] [phone] Routine, Hbo - 15053 Discharge Disposition: Discharged to home or self [...] hesitate to call the Hyperbaric Department at [phone] during clinic hours or page summons server staff with any updates, questions, or concerns. Continuous attending physician supervision was provided throughout the hyperbaric oxygen treatment.I have reviewed and agree with treatment note created by Lor Hinojosa APRN, RAILROAD AUDITOR. Shawn Vines MD, 12/20/2023 12:49 PM documented [...] Glucose 265(H) 70 - 100 mg/dL [facility] - POINT OF CARE Blood 12/20/2023 12:2 8 PM CDT Shawn Vines MD LABORATORY Performing Organization Address City[facility]/ZIP Co de Phone Number [facility] POINT OF [facility] [address] [place] [address], * (ABNORMAL) POC GLUCOSE (12/20/2023 10:06 AM CDT) POC Glucose 284(H) 70 - 100 mg/dL [facility] POINT OF [facility] Blood 12/20/2023 10:0 6 AM CDT Shawn Vines MD LABORATORY Performing Organization Address [facility] de Phone Number [facility] [address] [place] [address], [place] documented in this encounter Visit Diagnoses Diagnosis Soft tissue infection- Primary Unspecified infectious and parasitic diseases Other acute osteomyelitis of left foot ([facility] documented in this encounter Administered Medications Inactive [...]
--- OUTSIDE RECORDS SUMMARY | 2024-03-06 08:57 | XMS_ITS | Encounter Summary ---
Author Organization [facility] Address [address] [place] [address] Phone Care Team Providers Care Dumper Operator Name Role Phone Unavailable Primary Care [...]
--- OUTSIDE RECORDS SUMMARY | 2024-03-06 08:57 | XMS_ITS | Encounter Summary ---
Author Organization [facility] Address [address] [place] [address] Phone Care Team Providers Care Software Engineer Advisor Name Role Phone Unavailable Primary Care [...]
--- OUTSIDE RECORDS SUMMARY | 2024-03-06 08:57 | XMS_ITS | Encounter Summary ---
Author Organization [facility] Address [address] [place] [address] Phone Care Team Providers Care Architectural Draftsperson Name Role Phone Unavailable Primary Care Provider Unavailabl e Reason for Visit * Reason Onset Date Comments Care Coordination 12/28/2023 Called to disc us outpatient HBOT schedule Encounter Details Date Type Department Care Team (Late st Contact Info) Description 12/28/2023 Telephone [facility] Hyperbaric [address] [address] Dayanna Rodriguez RN 701 [place] [address] Care Coordination (Called to discuss outpatient HBOT [...] schedule was printedand faxed to Vannesa at [phone]. She reported that she may need x 2 days to get transport set up. documented in this encounter Plan of Treatment Not on file documented as of this encounter Visit Diagnoses Not on filedocumented in this encounter Additional Health Concerns Infection Onset Date Last Indicated Resolved Time 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
--- OUTSIDE RECORDS SUMMARY | 2024-03-06 08:57 | XMS_ITS | Encounter Summary ---
Author Organization [facility] Address [address] [place] [address] Phone Care Team Providers Care Patternmaker Apprentice Wood Name Role Phone Unavailable Primary Care Provider Unavailabl e Reason for Visit * Reason Comments Follow-up Encounter Details Date Type Department Care Team (Late st Contact Info) Description 12/17/2023 1:45 PM CDT [facility] [address] [address] Afshan Sims, DPMorelia [address] [phone] S/P foot surgery, right (Primary Dx) Discharge [...] Schizophrenia History of TBI --Patient is own [facility] Clinic plan: -Discussed postoperative course and [...]
--- OUTSIDE RECORDS SUMMARY | 2024-03-06 08:57 | XMS_ITS | Encounter Summary ---
Author Organization [facility] Address [address] [place] [address] Phone Care Team Providers Care Field Artillery Cannoneer Name Role Phone Unavailable Primary Care Provider [...]
--- OUTSIDE RECORDS SUMMARY | 2024-03-06 08:57 | XMS_ITS | Encounter Summary ---
Author Organization [facility] Address [address] [place] [address] Phone Care Team Providers Care Transport Medic Name Role Phone Unavailable Primary Care Provider [...] FULL BODY CHAMBER PER 30 MINUTE INTERVAL IN PHYS/QHP ATTN&SUPVJ HYPRBARIC OXYGEN TX/SESSION Routine, Hbo - 85600 Referral ID Status Reason Start Date Expiration Date V isits Requested Visits Authorized [id number] Auth Not Needed 12/20/2023 03/09/2024 30 30 Encounter Details Date Type Department Care Team (Latest Contact Info) Description 12/22/2023 9:43 AM CDT - 12/22/2023 11:59 PM CDT Hospital En[place] [facility] [place] 701 [facility] 980 [place], [place] [address] Narcisa Sanford MD 701 [place], [place] [phone] Routine, Hbo - [id number] Discharge Disposition: Discharged to home or self [...] hesitate to call the Hyperbaric Department at [phone] during clinic hours or page production cloth cutter staff with any updates, questions, or concerns. Continuous attending physician supervision was provided throughout the hyperbaric oxygen treatment.I have reviewed and agree with treatment note created by the Hyperbaric Medicine Nurse Practitioner, Mayuri Hinojosa APRN, EDGER LINER. Narcisa Sanford MD, 12/22/2023 3:23 PM documented in this encounter Plan of Treatment Not on file documented as of this encounter Procedures Procedure Name Priority Date/Time Associated Diagnosis Comments POC GLUCOSE Routine 12/22/2023 9:48 AM CDT documented in this encounter Results * (ABNORMAL) POC GLUCOSE (12/22/2023 9:48 AM CDT) POC Glucose 318(H) 70 - 100 mg/dL [facility] - POINT OF CARE Blood 12/22/2023 9:48 AM CDT Nikolai Martinez MD LABORATORY [facility] - POINT OF CARE [address] [place] [address], documented in this encounter Visit Diagnoses Diagnosis Soft tissue infection- Primary Unspecified infectious and parasitic diseases Other acute osteomyelitis of left foot ([facility]) documented in this encounter Additional Health Concerns Infection Onset Date Last Indicated Resolved Time 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
--- OUTSIDE RECORDS SUMMARY | 2024-03-06 08:57 | XMS_ITS | Encounter Summary ---
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 Okay to discharge to [facility] if there is somebody who can do dressing changes daily. Appointment has been made for follow-up on 01/28/2024 documented in this encounter Progress Notes * 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 APRN, PATRICIA - 12/24/2023 10:00 AM CDT Images from the original note were not included. [facility] PROVIDER SURGERY CLINIC VISIT NOTE - FLAGGER Stephanie Low : 1980 Sex: male Plan : Continue wet-to-dry dressing changes with Vashe to the groin incision. With the each dressing change; make sure the groin area is clean and dry. Utilize Interdry to keep abdominal fluids and groin dry Okay for patient to discharge [facility] if help is available to change the [...] No 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 APRN, CNP 12/24/2023 13:40 [facility] Department of Surgery Pager: via [employer] I have spent 30 minutes with this patient today in which greater than 50% of this time was spent incounseling/coordination of care regarding in patient care, review of imaging/labs, chart review andconsultant recommendations. Dictation Disclaimer: Some notes are completed with voice-recognition dictation software. Errors are generally corrected in real time. Please contact me via [employer] staff message if you note any errors [...]
--- OUTSIDE RECORDS SUMMARY | 2024-03-06 08:57 | XMS_ITS | Encounter Summary ---
Author Organization [facility] Address [address] [place] [address] Phone Care Team Providers Care Fun House Attendant Name Role Phone Unavailable Primary Care [...]
--- OUTSIDE RECORDS SUMMARY | 2024-03-06 08:57 | XMS_ITS | Encounter Summary ---
Author Organization [facility] Address [address] [place] [address] Phone Care Team Providers Care Osha Inspector Name Role Phone Unavailable Primary Care [...]
--- OUTSIDE RECORDS SUMMARY | 2024-03-06 08:57 | XMS_ITS | Encounter Summary ---
Author Organization [facility] Address [address] [place] [address] Phone Care Team Providers Care Consumer Insights Specialist Name Role Phone Unavailable Primary Care Provider Unavailabl e Reason for Visit * Reason Comments Wound Encounter Details Date Type Department Care Team (Late st Contact Info) Description 12/27/2023 9:00 AM CDT Nurse Only [facility] [address] [address] Afshan Sims, DPMorelia [address] [phone] Discharge Disposition: Discharged to home or self [...] on Original Admission: Yes Location:Groin Site Assessment Granular;[place] Rain-Wound Assessment Intact Tunneling or undermining present? [...]
--- OUTSIDE RECORDS SUMMARY | 2024-03-06 08:57 | XMS_ITS | Encounter Summary ---
Author Organization [facility] Address [address] [place] [address] Phone Care Team Providers Care Purchasing/Receiving Name Role Phone Unavailable Primary Care Provider [...]
--- OUTSIDE RECORDS SUMMARY | 2024-03-06 08:57 | XMS_ITS | Encounter Summary ---
Author Organization [facility] Address [address] [facility] [place] [address] Phone Care Team Providers Care Drying And Winding Supervisor Name Role Phone Unavailable Primary Care Provider Unavailabl e Encounter Details Date Type Department Care Team (Latest Contact Info) Description 12/29/2023 9:38 AM CDT - 12/29/2023 11:59 PM CDT Hospital En[place] [facility] [place] [address] [place] [address] Nikolai Martinez MD [address] [facility] [place], [place] [address] Mlwuvpk, Ygf - [phone] Discharge Disposition: Discharged to home or self [...] hesitate to call the Hyperbaric Department at [phone] during clinic hours or page oim consultant staff with any updates, questions, or [...] POC Glucose 323(H) 70 - 100 mg/dL [facility] - POINT OF CARE Blood 12/29/2023 10:0 7 AM CDT Nikolai Martinez MD LABORATORY [facility] - POINT OF CARE [address] [place] [address], documented in this encounter Visit Diagnoses Diagnosis Soft tissue infection- Primary Unspecified infectious and parasitic diseases Other acute osteomyelitis of left foot ([facility]) documented in this encounter Administered Medications [...]
--- OUTSIDE RECORDS SUMMARY | 2024-03-06 08:57 | XMS_ITS | Encounter Summary ---
Author Organization [facility] Address [address] [place] [address] Phone Care Team Providers Care Technical Adjuster Name Role Phone Unavailable Primary Care Provider [...]
--- OUTSIDE RECORDS SUMMARY | 2024-03-06 08:57 | XMS_ITS | Encounter Summary ---
Author Organization [facility] Address [address] [place] [address] Phone Care Team Providers Care Training Assistant Name Role Phone Unavailable Primary Care [...]
--- OUTSIDE RECORDS SUMMARY | 2024-03-06 08:58 | XMS_ITS | Encounter Summary ---
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[facility]) Clint Barber MD [address] [address] Referral ID Status Reason Start Date Expiration Date V isits Requested Visits Authorized [id number] New Request 12/14/2023 12/14/2024 1 1 * Consult/Test/Treat (Routine) - New Request Specialty Diagnoses / Procedures Referred By Contac t Referred To Contact Diagnoses Soft tissue infection Igor Glover MD [address] [address] PATIENT CHOICE Referral ID Status Reason Start Date Expiration Date V isits Requested Visits Authorized [id number] New Request 12/12/2023 12/12/2024 1 1 * Consult/Test/Treat (Routine) - New Request Specialty Diagnoses / Procedures Referred By Contac t Referred To Contact Physical Therapy / PHYSICAL THERAPY Diagnoses Soft tissue infection Igor Glover MD [address] [address] PATIENT CHOICE Referral ID Status Reason Start Date Expiration Date V isits Requested Visits Authorized [id number] New Request 12/12/2023 12/12/2024 1 1 Reason for Visit * Auth/Cert (Routine) Specialty Diagnoses / Procedures Referred By Contmini t Referred To Contact SURGERY Diagnoses Other acute osteomyelitis of left foot ([facility]) Eusebio Vivar MD [address] [place] [address] Or P4 [address] [place] [address] Referral ID Status Reason Start Date Expiration Date Visits Re quested Visits Authorized [id number] 1 1 Encounter Details Date Type Department Care Team (Latest Contact Info) Description 12/07/2023 3:48 PM CDT - 12/14/2023 12:38 PM CDT Hospital Encounter [facility] Orthopaedic 701 [facility] G3.220 [place], [place] [id number] Eusebio Vivar MD [address] [place] [phone] Mirta Urena MD [address] [place] [address] [phone] Suzy Shafer PA-C [address] [place] [address] [phone] Igor Glover MD [address] [phone] Clint Barber MD [address] [place] [phone] Other acute osteomyelitis of left foot ([facility]) Discharge Disposition: Discharged/transd to home (care [...] 12/12 - discussed with PharmD. HTN: Continue CERTIFIED CONTROL SYSTEMS TECHNICIAN amlodipine. Hyperlipidemia: Continue CERTIFIED CONTROL SYSTEMS TECHNICIAN rosuvastatin. Tobacco use disorder: Continue NRT. Hx of TBI. Malnutrition Weight: (!) 139.9 kg (308 lb 6.8 oz) Wt Change from Previous: 0 Kg Wt Change from Admit: 0 Kg % Wt Change from Adm: 0 % Cutler Body Wt (IBW) Male (kg): 75.3 kg [...] Comments: Fax to Dr. Aretha Damon at [phone] PANEL HEPATIC FUNCTION Standing Status: Future Standing Exp. Date: 03/13/24 Order Comments: Fax to Dr. Aretha Damon at [phone] Scheduling Instructions: Hepatic Function Panel includes: Albumin, Alk Phos, ALT, AST, Direct Bilirubin, Total Bilirubin and Total Protein C-REACTIVE PROTEIN Standing Status: Future Standing Exp. Date: 03/13/24 Order Comments: Fax to Dr. Aretha Damon at [phone] CREATININE, SERUM Standing Status: Future Standing Exp. Date: 03/13/24 Order Comments: Fax to Dr. Aretha Damon at [phone] Referral to Physical Therapy Referral Priority: Routine [...] Okay for Senior Care Facility standing orders? Order Specific Question Answer Comments OK for Senior Care Facility house standing orders? Yes Give Mantoux unless current or contraindicated. Scheduling Instructions: Please specify in comments! Resume previous standing orders per custodial policy Order Comments: Resume previous standing orders per custodial policy Scheduling Instructions: Please specify in comments! [...] equipment/supplies recommended: None Final discharge destination: Subacute custodial with rehab care R: The patient and [...] hesitate to call the Hyperbaric Department at [phone] during clinic hours or page workday consultant staff with any updates, questions, or concerns. Associated attestation - Douglas Morris II, MD - 12/14/2023 3:50 PM CDT Continuous attending physician supervision was provided throughout the hyperbaric oxygen treatment.I have reviewed and agree with the treatment note created by the Hyperbaric Medicine Fellow: Talita Patle MD. Appropriate addendums were made as needed [...] is medically ready for discharge back to [facility] since 12/11. Spoke to Tabatha at [facility] today ([phone]) who reported that the patient was not [...] () of patient departure: 12/13/2023 @1530 Destination: [facility] [employer] [place], [place] Type of ride: wheelchair Transportation vendor of ride: [facility] [phone] * If this ride needs to be [...] Clinical Coordinators will be informed via a [employer] page. PCS form was completed in Progress [...] infection Attending provider: Igor Glover MD Insurance: [facility] Secondary insurance: [place] [employer] Height: Height: [...] hesitate to call the Hyperbaric Department at [phone] during clinic hours or page workday consultant staff with any updates, questions, or [...] 12/12 - discussed with PharmD. HTN: Continue CERTIFIED CONTROL SYSTEMS TECHNICIAN amlodipine. Hyperlipidemia: Continue CERTIFIED CONTROL SYSTEMS TECHNICIAN rosuvastatin. Tobacco use disorder: Continue NRT. Hx of TBI. FEN: Regular consistent carb diet. Code status: Full code. VTE prophylaxis: VTE prophylaxis with lovenox to start 12/10. Lines: No central line. No mujica. Discharge planning: Discharg to [facility] in [place] when they're able to accept him back.Possibly [...] Goals: Patient's Discharge Goal: back to [facility]' Discharge Goal: n/a Discharge Destination Expected [...] Selected Services Address Phone Fax Patient Preferred [facility] Pending - No Request Sent N/A [id number] [facility] [phone] -- Narcisa Tobar LGSW, 12/12/2023 9:50 AM * Aretha Damon MD - 12/12/2023 8:53 AM CDT ID PROGRESS NOTE Stephanie Low 1980 male [id number] ASSESSMENT: MRSA left foot osteomyelitis S/p I&D [...] 12/12 - discussed with PharmD. HTN: Continue CERTIFIED CONTROL SYSTEMS TECHNICIAN amlodipine. Hyperlipidemia: Continue CERTIFIED CONTROL SYSTEMS TECHNICIAN rosuvastatin. Tobacco use disorder: Continue NRT. Hx of TBI. FEN: Regular consistent carb diet. Code status: Full code. VTE prophylaxis: VTE prophylaxis with lovenox to start 12/10. Lines: No central line. No mujica. Discharge planning: Discharg to [facility] in [place] when they're able to accept him back.Possibly [...] Glover MD, 12/11/2023 7:34 PM Page via SQLstream * Eusebio Perez, PharmD - 12/11/2023 3:38 [...] recent) Eusebio Perez, Jaxon 12/11/2023 19:22 Pager: (Archive) * Lizbeth Cavazos LICSW - 12/11/2023 2:41 PM CDT Weekend Inpatient Social Work Note Summary: Weekend SW paged by bedside RN to help facilitate coordination back to TCU today. GARY called [facility] Agui[facility] and left a voicemail. Many barriers are at play for a weekend return - patient hasIV antibiotics, he is recommended to receive 20 HBO sessions (1st today), and has [facility] Medicare Advantage (which requires prior authorization). GARY advised this likely cannot be resolved during the weekend due to the barriers listed above. Follow up needed: GARY will try to problem solve if [facility] calls back, if not weekday team to follow up on plan for discharge. RAJ Cadena, PLACIDO Inpatient Bricklayer Paving Brick - Casual (weekends only) Available via [employer] Lizbeth Cavazos LICSW, 12/11/2023 2:41 PM Addendum [...] hesitate to call the Hyperbaric Department at [phone] during clinic hours or page workday consultant staff with any updates, questions, or [...] Schizophrenia History of TBI --Patient is own [facility] RECOMMENDATIONS: 1. Dressing: Dressed with [...] continue to follow while admitted. Please page workday consultant resident with questions. Patient was discussed with workday consultant staff Interval history: Patient seen and [...] 12/12 - discussed with PharmD. HTN: Continue CERTIFIED CONTROL SYSTEMS TECHNICIAN amlodipine. Hyperlipidemia: Continue CERTIFIED CONTROL SYSTEMS TECHNICIAN rosuvastatin. Tobacco use disorder: Continue NRT. Hx of TBI. FEN: Regular consistent carb diet. Code status: Full code. VTE prophylaxis: VTE prophylaxis with lovenox to start 12/10. Lines: No central line. No mujica. Discharge planning: Discharged to [facility] on 11/24 after admission for Demar's [...] Glover MD, 12/10/2023 2:18 PM Page via SQLstream * Denise Esteves RN - 12/10/2023 11:57 AM CDT Clinical Coordinator Note: 12/10/23 1156 Rapid Rounds Attendance Physician;Charge nurse;manager pharmacy;drafting layout worker;Bedside nurse Expected Discharge Disposition SNF [...] to discharge. Denise Esteves Inpatient Clinical Coordinator [facility] Office: [phone] * Suzy Patino DPM - 12/10/2023 8:42 [...] s/p Left hallux amputation (DOS 11/17/2023 Dr. aPlomo) --Indication: gangrenous hallux, possible stable gas forming infection, right Daily Tobacco Use --AUS completed 11/16 with no additional workup indicated Controlled T2DM with peripheral neuropathy --A1C: 8.5% 12/08/2023, up from 6.8% 07/2023 Right TMA Paranoid Schizophrenia History of TBI --Patient is own [facility] RECOMMENDATIONS: 1. Dressing: Dressed in [...] continue to follow while admitted. Please page workday consultant resident with questions. Patient was discussed with workday consultant staff Interval history: Patient seen resting [...] near baseline. 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 Paranoid schizophrenia HILL: On prazosin, escitalopram and monthly paliperidone injections. Will continue these. Next due for paliperidone injection 12/12 - discussed with PharmD. HTN: Continue CERTIFIED CONTROL SYSTEMS TECHNICIAN amlodipine. Hyperlipidemia: Continue CERTIFIED CONTROL SYSTEMS TECHNICIAN rosuvastatin. Tobacco use disorder: Continue NRT. Hx of TBI. FEN: Regular consistent carb diet. Code status: Full code. VTE prophylaxis: VTE prophylaxis with hep to start 12/08. Lines: No central line. No mujica. Discharge planning: Discharged to [facility] on 11/24 after admission for Demar's [...] Glover MD, 12/09/2023 10:33 PM Page via SQLstream * David Mancuso, PharmD - 12/09/2023 3:54 [...] 12/09/2023 Expected DC Date: 12/10/2023 Social Information Medical Records Tech Used: None needed Decision Maker at Admission: Self Living Situation: longterm (see comment) Patient Identified Support System: sister, significant other Services Receiving: Waivered services (see comment) Complex Medical Needs: Other (see comment) (wound care) Transportation Used for Discharge: stretcher Safety Concerns: None Behavioral Health Concerns: None Patient Family Goals Patient's Discharge Goal: back to [facility] Family's Discharge Goal: n/a Plan/Interventions Expected Discharge Disposition: Senior Care Facility Patient Information Verification Verified demographic information, including SSN, Next of Kin, and Guardianship: Yes Verified PCP: Yes If post-acute placement is needed, have vaccination status needs been addressed?: Not applicable Risks for Readmission: None Summary of pertinent information: Patient admitted from [facility] with concern for a left great to osteomyelitis that was resected 12/07. 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 Have a call out to [facility] to confirm bed hold ([phone]). Spoke to staff at his [facility] ([place] [phone]) to also update and confirm that he can return there when ultimately. Patient currently has started on HBO, this may be problematic with returning to [facility]. Emily Hannah RN, 12/09/2023 [...] Schizophrenia History of TBI --Patient is own [facility] RECOMMENDATIONS: 1. Dressing: Dressed with [...] continue to follow while inpatient Please page workday consultant resident with questions. Patient was discussed with workday consultant staff Interval history: Patient seen and [...] Schizophrenia History of TBI --Patient is own [facility] RECOMMENDATIONS: 1. Dressing: Dressed in [...] continue to follow while inpatient Please page workday consultant resident with questions. Patient was seen with workday consultant staff, Dr. Palomo Interval history: Patient [...] 1446 for Other acute osteomyelitis of leftfoot ([facility]) . Patient: alert, oriented to person, [...] informed of Patient Valuables and Belongings Policy (#[id number]): Policy reviewed - patient/family/designee has indicated that [...] 12/12 - discussed with PharmD. HTN: Continue CERTIFIED CONTROL SYSTEMS TECHNICIAN amlodipine. Hyperlipidemia: Continue CERTIFIED CONTROL SYSTEMS TECHNICIAN rosuvastatin. Tobacco use disorder: Continue NRT. Hx of TBI. FEN: Regular consistent carb diet. Code status: Full code. VTE prophylaxis: VTE prophylaxis with hep to start 12/08. Lines: No central line. No mujica. 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 [...] Ruled Out #T2DM: A1c 6.8% 07/2023. Reduce CERTIFIED CONTROL SYSTEMS TECHNICIAN lantus to 15 U while NPO, Novolog 1U/CHO + LDSSI. Rechecking A1c. #HTN: CERTIFIED CONTROL SYSTEMS TECHNICIAN amlodipine 10 mg daily #HLD: CERTIFIED CONTROL SYSTEMS TECHNICIAN statin #Paranoid schizophrenia: CERTIFIED CONTROL SYSTEMS TECHNICIAN prazosin #HILL: CERTIFIED CONTROL SYSTEMS TECHNICIAN escitalopram 20 mg daily #Tobacco use disorder: [...] including pre-visit review of separately obtained history, oowf-im-betn interaction performing medically appropriate physical exam, patientcounseling/education, [...] surgery and sign off. 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 Discharge [...] wound healing. Message sent to primary team. [facility] Nursing follow up: Appreciate the opportunity to consult on this patient, Wound Ostomy Continence Services will sign off at this time. Please place additional 'Wound Consult' if wanting further assessment for this patient. Staff to continue to follow skin injury bundle. Escalate concerns to WOCN through additional consult or to the provider when barriers are identified. WOCN available Wednesday through Wednesday on [employer] or [phone] [facility] Nursing attempts to see patients in [...] on service at PharmD General Weekend Days ([employer]) or [phone]. If no response within needed timeframe, please contact central pharmacy via phone at [phone]. Planned discharge medications are: Medication List Medications [...] NEW CONSULT NOTE Stephanie Low 1980 male [id number] REASON FOR CONSULT: I was asked to [...] bearing restrictions, otherwise bed to chair only CERTIFIED CONTROL SYSTEMS TECHNICIAN Appropriate: No (more OR) Participated in goal setting and treatment planning: Patient Agrees with goals and treatment plan: Question patient's ability to understand. Gracia Arredondo, PT 12/10/2023 Pager: Archive PT Department * David Cortes MD - 12/09/2023 9:58 AM CDT Images from the original note were not included. [facility] HYPERBARIC MEDICINE CONSULTATION Referring clinician: Che Palomo [...] old poorly controlled DMII male referred to [facility] Hyperbaric medical team for consultation regarding concern [...] sex Other acute osteomyelitis of left foot ([facility]) Past Surgical History: Procedure Laterality Date [...] not hesitate to call the department at [phone] during clinic hours ([phone]) or page the workday consultant HYPERBARIC staff with any questions or [...] allowing us to participate in Stephanie Low [facility]. [place] [facility]: [phone]. David Cortes MD * Angela Cardenas CWOCN - 12/08/2023 3:00 PM CDTAssociated Order(s): CONSULT TO WOUND NURSE Images from the original note were not included. [facility] Nursing consulted by nursing for perineal wounds. 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 Discharge [...] wound healing. Message sent to primary team. [facility] Nursing follow up: later this week after surgery sees Staff to continue to follow skin injury bundle. Escalate concerns to WOCN through additional consult or to the provider when barriers are identified. WOCN available Wednesday through Wednesday on [employer] or [phone] [facility] Nursing attempts to see patients in [...] Schizophrenia History of TBI --Patient is own [facility] RECOMMENDATIONS: 1. Dressing: Daily dressing [...] continue to follow while inpatient Please page workday consultant resident with questions. Patient was seen with workday consultant staff, Dr. Palomo CHIEF COMPLAINT: Left [...] OR Date: 12/10/2023 Surgeon: Suzy Patino DPM Marketing Mgr(s): Samina Singletary DPM PGY3 Pre-Op Diagnosis: Packed [...] Clinic until healing has been obtained. Dr. Patnio was present during the entire procedure. Samina [...] 1980 Sex: male Surgeon: Che Palomo DPM Marketing Mgr(s): Niraj Lewis DPM PGY-3 Jf Sky MS-4 [...] 2023 2242 Started nicotine gum PRN Started CERTIFIED CONTROL SYSTEMS TECHNICIAN glargine and lispro The patient remained in the emergency department through the end of my shift. Their care was signedout [id number] with the oncoming provider. Dx, DDx, Assessment and Plan was discussed with Attending Emergency Medicine Physician. Final Clinical Impression 1. Other acute osteomyelitis of left foot ([facility]) Disposition and Plan Signed out to [...] in real time. Please contact me via [employer] staff message if you note any errors requiring clarification. * Farida Beyer RN - 12/07/2023 7:41 PM CDT Assumed care of pt. SNF director here as pt was reported missing when he did not return back from the clinic. Plan for admission with OR tomorrow. NPO at midnight, pt aware. * Allyssa Drummond MD - 12/07/2023 4:25 PM CDT Emergency Department Physician Note [facility] HISTORY Stephanie Low is a 43 y.o. [...] 1. Other acute osteomyelitis of left foot ([facility]) DISPOSITION & PLAN Patient remained in [...] Toe Head to Toe Assessment Shift Summary [id number] Alert and oriented x3, unsure of the [...] Physical Therapy Inpatient Discharge Summary Stephanie Low [id number] Diagnosis Patient Active Problem List Diagnosis Fourniers [...] to Toe Assessment Shift Summary Shift Summary [id number] Pt alert oriented and able to make [...] Toe Head to Toe Assessment Shift Summary [id number] Daily dressing change done per order, reported [...] Toe Head to Toe Assessment Shift Summary [id number] Alert and oriented x 4, able to [...] Toe Head to Toe Assessment Shift Summary [id number] Patient is alert and oriented x 4,RA.Vitals [...] amputation RLE - amputation Comments: R amputation CERTIFIED CONTROL SYSTEMS TECHNICIAN Integumentary Assessment Within Defined Limits except for: [...] Toe Head to Toe Assessment Shift Summary [id number] Patient is alert and oriented x 4,RA.Vitals [...] 12/10/2023 6:30 PM PGY-1 [facility] Pager: [phone] * Nursing Assessment - May Torres RN [...] Singletary DPM - 12/10/2023 11:06 AM CDT [facility] Immediate Post Operative Note Note written: Day [...] Toe Head to Toe Assessment Shift Summary [id number] Alert and oriented x3, unsure of the [...] Head to Toe Assessment Shift Summary Night [id number] PT is AO x4. 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 Other acute osteomyelitis of left foot ([facility]) Eusebio Vivar MD, 12/08/2023 12:16 AM * Interval Note Provider - Shayna Schreiber MD - 12/07/2023 8:53 PM CDT Handoff Communication Note for Hospital Admission Verbal handoff received from Dr. Drummond in [facility]. Patient Class: Inpatient Cardiac Monitoring: [...] designation above. Please page the MOD via [employer] with clinical updates or status changes. Note [...] CDT Other acute osteomyelitis of left foot ([facility]) REVISION, AMPUTATION SITE, LOWER EXTREMITY Urgent [...] POC Glucose 255(H) 70 - 100 mg/dL [facility] POINT OF CARE Blood 12/14/2023 11:2 9 AM CDT Eusebio Vivar MD LABORATORY Performing Organization Address [facility] de Phone Number [facility] [address] [phone], [place] * (ABNORMAL) POC GLUCOSE (12/14/2023 6:32 AM CDT) POC Glucose 186(H) 70 - 100 mg/dL [facility] POINT OF [facility] Blood 12/14/2023 6:32 AM CDT Eusebio Vivar MD LABORATORY Performing Organization Address [facility] de Phone Number [facility] [address] [place] [address], [place] * (ABNORMAL) POC GLUCOSE (12/13/2023 9:05 PM CDT) POC Glucose 175(H) 70 - 100 mg/dL [facility] Blood 12/13/2023 9:05 PM CDT Eusebio Vivar MD LABORATORY Performing Organization Address [facility] de Phone Number [facility] [address] [phone], [place] * VANCOMYCIN LEVEL (12/13/2023 5:24 PM CDT) Vancomycin 17.0 mcg/mL [facility] Comment:Expected Range (Trou gh): 10-20 mcg/ml Blood 12/13/2023 5:24 PM CDT 12/13/2023 5:46 PM CDT Narrative [facility] - 12/13/2023 6:34 PM CDT Please ensure trough level drawn prior to next vancomycin dose. Thank you Peak or trough:->Trough Eusebio J Ana PharmD LABORATORY [facility] [address] [place] [address] * (ABNORMAL) POC GLUCOSE (12/13/2023 4:00 PM CDT) POC Glucose 153(H) 70 - 100 mg/dL [facility] POINT OF CARE Blood 12/13/2023 4:00 PM CDT Eusebio Vivar MD LABORATORY Performing Organization Address City/[facility]/ZIP Co de Phone Number [facility] POINT OF CARE [address] [place] [address], [place] * (ABNORMAL) POC GLUCOSE (12/13/2023 11:47 AM CDT) POC Glucose 271(H) 70 - 100 mg/dL [facility] POINT OF CARE Blood 12/13/2023 11:4 7 AM CDT Eusebio Vivar MD LABORATORY Performing Organization Address [facility] Co de Phone Number [facility] [address] [place] [address], [place] * (ABNORMAL) POC GLUCOSE (12/13/2023 6:35 AM CDT) POC Glucose 204(H) 70 - 100 mg/dL [facility] POINT OF CARE Blood 12/13/2023 6:35 AM CDT Eusebio Vivar MD LABORATORY Performing Organization Address City/[facility] Co de Phone Number [facility] POINT OF CARE [address] [place] [address], [place] * (ABNORMAL) POC GLUCOSE (12/12/2023 8:54 PM CDT) POC Glucose 170(H) 70 - 100 mg/dL [facility] POINT OF CARE Blood 12/12/2023 8:54 PM CDT Eusebio Vivar MD LABORATORY [facility] POINT OF CARE [address] [place] [address], [place] * (ABNORMAL) POC GLUCOSE (12/12/2023 4:10 PM CDT) POC Glucose 252(H) 70 - 100 mg/dL [facility] POINT OF CARE Blood 12/12/2023 4:10 PM CDT Eusebio Vivar MD LABORATORY Performing Organization Address City/[facility]/ZIP Co de Phone Number [facility] POINT OF CARE [address] [place] [address], [place] * (ABNORMAL) POC GLUCOSE (12/12/2023 11:07 AM CDT) POC Glucose 200(H) 70 - 100 mg/dL [facility] POINT OF CARE Blood 12/12/2023 11:0 7 AM CDT Eusebio Vivar MD LABORATORY Performing Organization Address [facility] Co de Phone Number [facility] POINT [facility] [address] [place] [address], [place] * (ABNORMAL) POC GLUCOSE (12/12/2023 6:42 AM CDT) POC Glucose 185(H) 70 - 100 mg/dL [facility] POINT OF CARE Blood 12/12/2023 6:42 AM CDT Eusebio Vivar MD LABORATORY Performing Organization Address City/[facility]/ZIP Co de Phone Number [facility] POINT OF CARE [address] [place] [address], [place] * (ABNORMAL) POC GLUCOSE (12/11/2023 9:10 PM CDT) POC Glucose 226(H) 70 - 100 mg/dL [facility] POINT OF CARE Blood 12/11/2023 9:10 PM CDT Eusebio Vivar MD LABORATORY [facility] POINT OF CARE [address] [place] [address], * VANCOMYCIN LEVEL (12/11/2023 5:28 PM CDT) Vancomycin 19.6 mcg/mL [facility] Comment:Expected Range (Trou gh): 10-20 mcg/ml Blood 12/11/2023 5:28 PM CDT 12/11/2023 5:37 PM CDT Narrative [facility] - 12/11/2023 6:46 PM CDT Peak or trough:->Trough Igor Glover MD LABORATORY [facility] [address] [place] [address] * (ABNORMAL) POC GLUCOSE (12/11/2023 4:13 PM CDT) POC Glucose 173(H) 70 - 100 mg/dL [facility] POINT OF CARE Blood 12/11/2023 4:13 PM CDT Eusebio Vivar MD LABORATORY Performing Organization Address City/[facility]/ZIP Co de Phone Number [facility] POINT OF CARE [address] [place] [address], [place] * (ABNORMAL) POC GLUCOSE (12/11/2023 11:43 AM CDT) POC Glucose 283(H) 70 - 100 mg/dL [facility] POINT [facility] CARE Blood 12/11/2023 11:4 3 AM CDT Eusebio Vivar MD LABORATORY [facility]ARE [address] [place] [address], [place] * (ABNORMAL) POC GLUCOSE (12/11/2023 10:28 AM CDT) POC Glucose 198(H) 70 - 100 mg/dL [facility] POINT OF CARE Blood 12/11/2023 10:2 8 AM CDT Eusebio Vivar MD LABORATORY Performing Organization Address [facility] Co de Phone Number [facility] POINT OF CARE [address] [place], [place] [address], * (ABNORMAL) POC GLUCOSE (12/11/2023 6:41 AM CDT) [facility] POC Glucose 173(H) 70 - 100 mg/dL [facility] POINT OF CARE Blood 12/11/2023 6:41 AM CDT Eusebio Vivar MD LABORATORY Performing Organization Address [facility] de Phone Number [facility] POINT OF [facility] [address] [place], [place] [address], [place] * (ABNORMAL) CBC WITH PLTS/AUTO DIFF (12/11/2023 5:50 AM CDT) [facility] WBC 8.72 4.00 - 10.00 k/cmm [facility] RBC 3.82(L) 4.60 - 6.00 m/cmm [facility] Hgb 10.6(L) 13.1 - 17.5 g/dL [facility] Hematocrit 32.4(L) 40.0 - 51.0 % [facility] MCV 84.8 80.0 - 100.0 fL [facility] MCH 27.7 25.0 - 32.0 pg [facility] MCHC 32.7 31.0 - 36.0 g/dL [facility] RDW 13.5 11.5 - 14.5 % [facility] Plt 400 150 - 400 k/cmm [facility] MPV 9.3 6.5 - 12.5 fL [facility] Automated Abs Neutrophil 4.22 1.70 - 6.50 k/cmm [facility] Comment:Preliminary ANC, Fin al Result to Follow Abs Immature Granulocyte 0.09 0.00 - 0.09 k/cmm [facility] Comment:The Immature Granulo cyte Absolute count contains metamyelocytes and myelocytes. Abs Neutrophil 4.22 1.70 - 6.50 k/cmm [facility] Abs Lymphocyte 2.59 0.80 - 4.00 k/cmm [facility] Abs Monocyte 1.00 0.20 - 1.00 k/cmm [facility] Abs Eosinophil 0.79(H) 0.00 - 0.60 k/cmm [facility] Abs Basophil 0.03 0.00 - 0.20 k/cmm [facility] Blood 12/11/2023 5:50 AM CDT 12/11/2023 6:26 AM CDT Igor Glover MD LABORATORY Performing Organization Address City/[facility]/ZIP Co de Phone Number [facility] [address] [address] * (ABNORMAL) PANEL BASIC METABOLIC (BMP) (12/11/2023 5:50 AM CDT) CO2 25 22 - 30 mmol/L [facility] Glucose 178(H) 70 - 100 mg/dL [facility] BUN 9 6 - 20 mg/dL [facility] Creatinine 0.92 0.70 - 1.25 mg/dL [facility] Calcium 9.0 8.6 - 10.0 mg/dL [facility] Sodium 136 135 - 148 mmol/L [facility] Potassium 4.1 3.5 - 5.3 mmol/L [facility] Chloride 100 92 - 108 mmol/L [facility] eGFR (2020 CKD-EPI) 105 >=60 ml/min/1.7 3m2 [facility] Comment: The estimated glomerular filtration rate (eGFR) was calculated using the CKD-EPI 2020 creatinine equation, which does not include race as a factor. This equation is validated in individuals 18 years of age and older, and eGFR is normalized to a body surface area of 1.73m^2. AnGap 11 8 - 16 mmol/L [facility] Blood 12/11/2023 5:50 AM CDT 12/11/2023 6:25 AM CDT Igor Glover MD LABORATORY Performing Organization Address City/[facility]/ZIP Co de Phone Number [facility] [address] [address] * (ABNORMAL) POC GLUCOSE (12/10/2023 9:03 PM CDT) POC Glucose 206(H) 70 - 100 mg/dL [facility] POINT OF CARE Blood 12/10/2023 9:03 PM CDT Eusebio Vivar MD LABORATORY Performing Organization Address [facility] de Phone Number [facility] POINT OF CARE [address] [place] [address], [place] * (ABNORMAL) POC GLUCOSE (12/10/2023 4:16 PM CDT) POC Glucose 341(H) 70 - 100 mg/dL [facility] POINT OF CARE Blood 12/10/2023 4:16 PM CDT Eusebio Vivar MD LABORATORY Performing Organization Address [facility] de Phone Number [facility] POINT OF [facility] [address] [place] [address], [place] * XR CHEST 2 VIEWS PA [...] POC Glucose 194(H) 70 - 100 mg/dL [facility] POINT OF CARE Blood 12/10/2023 12:0 9 PM CDT Eusebio Vivar MD LABORATORY [facility] POINT OF CARE [address] [place] [address], * SURGICAL PATHOLOGY (12/10/2023 11:07 AM CDT) SURG PATH FINAL ?Surgical Pathology Report Collection Date: ?12/10/2023 11:07 CDT ? Ordering Physician: ? SUZY PATINO Received Date: ?12/10/2023 12:07 CDT ? Accession Number: ? [id number] ? Surgical Pathology Final Report Specimen Type: [...] Regalado M.D. Attending Pathologist. DDB/DDB 12.10.2023 13:39 [facility] AP Specimen FOOT STRUCTURE / Unknown 12/10/2023 11:07 AM CDT Comment:OR: Routine gross an d microscopic examination Tissue: 1st metatarsel left foot, cut margin Site: foot Additional clinical information: Suzy Patino DPM LAB PATHOLOGY [facility] [address] [place] [address] * (ABNORMAL) POC GLUCOSE (12/10/2023 6:16 AM CDT) POC Glucose 228(H) 70 - 100 mg/dL [facility] POINT OF CARE Blood 12/10/2023 6:16 AM CDT Eusebio Vivar MD LABORATORY [facility] POINT OF CARE [address] [place] [address], * (ABNORMAL) CBC WITH PLTS/AUTO DIFF (12/10/2023 5:06 AM CDT) Pathologist [facility] WBC 8.35 4.00 - 10.00 k/cmm [facility] RBC 3.81(L) 4.60 - 6.00 m/cmm [facility] Hgb 10.3(L) 13.1 - 17.5 g/dL [facility] Hematocrit 32.5(L) 40.0 - 51.0 % [facility] MCV 85.3 80.0 - 100.0 fL [facility] MCH 27.0 25.0 - 32.0 pg [facility] MCHC 31.7 31.0 - 36.0 g/dL [facility] RDW 13.4 11.5 - 14.5 % [facility] Plt 377 150 - 400 k/cmm [facility] MPV 9.4 6.5 - 12.5 fL [facility] Automated Abs Neutrophil 4.14 1.70 - 6.50 k/cmm [facility] Comment:Preliminary ANC, Fin al Result to Follow Abs Immature Granulocyte 0.08 0.00 - 0.09 k/cmm [facility] Comment:The Immature Granulo cyte Absolute count contains metamyelocytes and myelocytes. Abs Neutrophil 4.14 1.70 - 6.50 k/cmm [facility] Abs Lymphocyte 2.39 0.80 - 4.00 k/cmm [facility] Abs Monocyte 1.06(H) 0.20 - 1.00 k/cmm [facility] Abs Eosinophil 0.64(H) 0.00 - 0.60 k/cmm [facility] Abs Basophil 0.04 0.00 - 0.20 k/cmm [facility] Blood 12/10/2023 5:06 AM CDT 12/10/2023 5:40 AM CDT Igor Glover MD LABORATORY Performing Organization Address [facility] Co de Phone Number [facility] [address] [address] * (ABNORMAL) PANEL BASIC METABOLIC (BMP) (12/10/2023 5:06 AM CDT) CO2 26 22 - 30 mmol/L [facility] Glucose 204(H) 70 - 100 mg/dL [facility] BUN 11 6 - 20 mg/dL [facility] Creatinine 0.92 0.70 - 1.25 mg/dL [facility] Calcium 9.0 8.6 - 10.0 mg/dL [facility] Sodium 137 135 - 148 mmol/L [facility] Potassium 4.2 3.5 - 5.3 mmol/L [facility] Chloride 101 92 - 108 mmol/L [facility] eGFR (2020 CKD-EPI) 105 >=60 ml/min/1.7 3m2 [facility] Comment: The estimated glomerular filtration rate (eGFR) was calculated using the CKD-EPI 2020 creatinine equation, which does not include race as a factor. This equation is validated in individuals 18 years of age and older, and eGFR is normalized to a body surface area of 1.73m^2. AnGap 10 8 - 16 mmol/L [facility] Blood 12/10/2023 5:06 AM CDT 12/10/2023 5:40 AM CDT Igor Glover MD LABORATORY Performing Organization Address [facility] Co de Phone Number [facility] [address] [address] * (ABNORMAL) POC GLUCOSE (12/09/2023 9:18 PM CDT) POC Glucose 204(H) 70 - 100 mg/dL [facility] POINT OF CARE Blood 12/09/2023 9:18 PM CDT Eusebio Vivar MD LABORATORY Performing Organization Address [facility] Co de Phone Number [facility] POINT OF CARE [address] [place] [address], * (ABNORMAL) PANEL BASIC METABOLIC (BMP) (12/09/2023 5:56 PM CDT) Sodium 134(L) 135 - 148 mmol/L [facility] Potassium 4.2 3.5 - 5.3 mmol/L [facility] Chloride 99 92 - 108 mmol/L [facility] CO2 23 22 - 30 mmol/L [facility] AnGap 12 8 - 16 mmol/L [facility] Glucose 246(H) 70 - 100 mg/dL [facility] BUN 13 6 - 20 mg/dL [facility] Creatinine 0.98 0.70 - 1.25 mg/dL [facility] Calcium 8.8 8.6 - 10.0 mg/dL [facility] eGFR (2020 CKD-EPI) 97 >=60 ml/min/1.7 3m2 [facility] Comment: The estimated glomerular filtration rate (eGFR) was calculated using the CKD-EPI 2020 creatinine equation, which does not include race as a factor. This equation is validated in individuals 18 years of age and older, and eGFR is normalized to a body surface area of 1.73m^2. Blood 12/09/2023 5:56 PM CDT 12/09/2023 6:26 PM CDT Igor Glover MD LABORATORY Performing Organization Address City/[facility]/ZIP Co de Phone Number [facility] [address] [address] * VANCOMYCIN LEVEL (12/09/2023 5:56 PM CDT) Vancomycin 22.0 mcg/mL [facility] Comment:Expected Range (Trou gh): 10-20 mcg/ml Blood 12/09/2023 5:56 PM CDT 12/09/2023 6:26 PM CDT Narrative [facility] - 12/09/2023 8:14 PM CDT Peak or trough:->Trough Gwen Gamez PharmD LABORATORY Performing Organization Address [facility] Co de Phone Number [facility] [address] [place] [address] * (ABNORMAL) POC GLUCOSE (12/09/2023 4:08 PM CDT) POC Glucose 231(H) 70 - 100 mg/dL [facility] POINT OF [facility] Blood 12/09/2023 4:08 PM CDT Eusebio Vivar MD LABORATORY Performing Organization Address [facility] de Phone Number [address] [address], [place] * (ABNORMAL) POC GLUCOSE (12/09/2023 11:13 AM CDT) POC Glucose 282(H) 70 - 100 mg/dL [facility] Blood 12/09/2023 11:1 3 AM CDT Eusebio Vivar MD LABORATORY Performing Organization Address [facility] de Phone Number [address] [address], [place] * HBO TCO2 MEASUREMENT COMPLETE (12/09/2023 [...] Reg 2002; 10:198-207. Bridget QUIÑONEZ et al. [facility] 2009, Vol. 36(1). ? [place] [...] POC Glucose 198(H) 70 - 100 mg/dL [facility] Blood 12/09/2023 6:43 AM CDT Eusebio Vivar MD LABORATORY Performing Organization Address [facility] Co de Phone Number [facility]ARE [address] [place] [address], * (ABNORMAL) POC GLUCOSE (12/08/2023 9:10 PM CDT) POC Glucose 268(H) 70 - 100 mg/dL [facility] Blood 12/08/2023 9:10 PM CDT Eusebio Vivar MD LABORATORY Performing Organization Address [facility] Co de Phone Number [facility] [address] [place] [address], * (ABNORMAL) SED RATE (ESR) (12/08/2023 4:47 PM CDT) Sed Rate 120(H) 2 - 10 mm/hr [facility] Blood 12/08/2023 4:47 PM CDT 12/08/2023 5:07 PM CDT Suzy Shafer PA-C LABORATORY Performing Organization Address [facility]/ZIP Co de Phone Number [facility] [address] [address] * (ABNORMAL) PANEL BASIC METABOLIC (BMP) (12/08/2023 4:47 PM CDT) Sodium 134(L) 135 - 148 mmol/L [facility] Potassium 4.0 3.5 - 5.3 mmol/L [facility] Chloride 98 92 - 108 mmol/L [facility] CO2 24 22 - 30 mmol/L [facility] AnGap 12 8 - 16 mmol/L [facility] Glucose 247(H) 70 - 100 mg/dL [facility] BUN 16 6 - 20 mg/dL [facility] Creatinine 0.98 0.70 - 1.25 mg/dL [facility] Calcium 8.7 8.6 - 10.0 mg/dL [facility] eGFR (2020 CKD-EPI) 97 >=60 ml/min/1.7 3m2 [facility] Comment: The estimated glomerular filtration rate (eGFR) was calculated using the CKD-EPI 2020 creatinine equation, which does not include race as a factor. This equation is validated in individuals 18 years of age and older, and eGFR is normalized to a body surface area of 1.73m^2. Blood 12/08/2023 4:47 PM CDT 12/08/2023 5:07 PM CDT Suzy Shafer PA-C LABORATORY Performing Organization Address [facility]/ZIP Co de Phone Number [facility] [address] [address] * (ABNORMAL) GLYCOSYLATED HGB - A1C (12/08/2023 4:47 PM CDT) Hemoglobin A1C 8.5(H) 4.0 - 5.6 % [facility] Comment: Increased risk for diabetes (prediabetes): 5.7-6.4% Diabetes >=6.5% In the absence of unequivocal hyperglycemia, diagnosis requires two abnormal test results (i.e. HbA1c and glucose) or two abnormal results from specimens collected at two different timepoints. The presence of some hemoglobin variants or red cell disorders may interfere with the measurement of hemoglobin A1c (HbA1c). Estimated Average Glucose 197(H) 68 - 114 [facility] Comment: The estimated Average Glucose (eAG) was calculated using an equation derived from a study of 507 adults with type 1, type 2, or no diabetes. Minority populations were underrepresented and children were not included. The eAG is not equivalent to a fasting glucose concentration. Blood 12/08/2023 4:47 PM CDT 12/08/2023 5:07 PM CDT Narrative [facility] - 12/08/2023 6:01 PM CDT If not done in the last 30 days. Suzy Shafer PA-C LABORATORY [facility] [address] [address] * (ABNORMAL) CBC WITH PLATELET (12/08/2023 4:47 PM CDT) WBC 10.39(H) 4.00 - 10.00 k/cmm [facility] RBC 3.59(L) 4.60 - 6.00 m/cmm [facility] Hgb 9.8(L) 13.1 - 17.5 g/dL [facility] Hematocrit 30.8(L) 40.0 - 51.0 % [facility] MCV 85.8 80.0 - 100.0 fL [facility] MCH 27.3 25.0 - 32.0 pg [facility] MCHC 31.8 31.0 - 36.0 g/dL [facility] RDW 13.5 11.5 - 14.5 % [facility] Plt 314 150 - 400 k/cmm [facility] MPV 9.3 6.5 - 12.5 fL [facility] Blood 12/08/2023 4:47 PM CDT 12/08/2023 5:07 PM CDT Suzy Shafer PA-C LABORATORY Performing Organization Address City/[facility]/ZIP Co de Phone Number [address] [address] * (ABNORMAL) C-REACTIVE PROTEIN (12/08/2023 4:47 PM CDT) C-Reactive Protein 77(H) <=4 mg/L [facility] Blood 12/08/2023 4:47 PM CDT 12/08/2023 5:07 PM CDT Suzy Shafer PA-C LABORATORY Performing Organization Address [facility] Co de Phone Number [place] [phone] * (ABNORMAL) POC GLUCOSE (12/08/2023 4:20 PM CDT) POC Glucose 204(H) 70 - 100 mg/dL [facility] Blood 12/08/2023 4:20 PM CDT Eusebio Vivar MD LABORATORY Performing Organization Address City/[facility] Co de Phone Number [facility] POINT OF [place] [address], [place] * (ABNORMAL) POC GLUCOSE (12/08/2023 12:35 PM CDT) POC Glucose 227(H) 70 - 100 mg/dL [facility] Blood 12/08/2023 12:3 5 PM CDT Eusebio Vivar MD LABORATORY Performing Organization Address City/[facility]/ZIP Co de Phone Number [facility] [address] [place] [address], [place] * (ABNORMAL) POC GLUCOSE (12/08/2023 10:02 AM CDT) POC Glucose 263(H) 70 - 100 mg/dL [facility] Blood 12/08/2023 10:0 2 AM CDT Eusebio Vivar MD LABORATORY [facility] [address] [place] [address], * XR FOOT LEFT 3 V AP/OBL/LAT* [...] POC Glucose 214(H) 70 - 100 mg/dL [facility] Blood 12/08/2023 8:32 AM CDT Eusebio Vivar MD LABORATORY [facility] [address] [place] [address], * SURGICAL PATHOLOGY (12/08/2023 7:56 AM CDT) SURG PATH FINAL ?Surgical Pathology Report Collection Date: ?12/08/2023 07:56 CDT ?Ordering Physician: ? CHE PALOMO Received Date: ?12/08/2023 08:41 CDT ?Accession Number: ? [id number] ? Surgical Pathology Final Report Specimen Type: [...] specimen reveals a yellow, trabeculated cut surface. [employer] sections are submitted following decalcification as follows: A1: Resection margin, en face A2: Full cross-section of metatarsal head (DDB) DDB/DDB 12.08.2023 9:52 Microscopic Description: Microscopic examination performed and findings are reflected in the final diagnosis. I personally examined the relevant preparations and rendered and confirmed the diagnosis. ? Signed - Tootie Mackenzie M.D. Attending Pathologist. DDB/DDB 12.08.2023 9:52 [facility] AP Specimen FOOT STRUCTURE / Unknown 12/08/2023 7:56 AM CDT Comment:OR: Routine gross an d microscopic examination Tissue: Left first metatarsal head Site: left foot Additional clinical information: evaluate cut side for osteomyelitis [facility] Pal[facility] PATHOLOGY Performing Organization Address [facility] de Phone Number [address] [address] * FUNGUS CULTURE:INCLUDES SUHAS (12/08/2023 7:51 AM CDT) Final Report No fungus isolated. [facility] SUHAS Prep No fungal elements seen. [facility] Bone STRUCTURE OF LEFT FOOT / Unknown 12/08/2023 7:51 AM CDT 12/08/2023 9:00 AM CDT Comment:2. Bone first metata rsal left foot Che Palomo [facility] MICROBIOLOGY Performing Organization Address [facility] Co de Phone Number [address] [address] * ANAEROBE CULTURE (12/08/2023 7:51 AM CDT) Final Report No anaerobes isolated. [facility] Bone STRUCTURE OF LEFT FOOT / Unknown 12/08/2023 7:51 AM CDT 12/08/2023 9:00 AM CDT Comment:2. Bone first metata rsal left foot Che L Beth [facility] MICROBIOLOGY Performing Organization Address [facility] Co de Phone Number [facility] [address] [address] * (ABNORMAL) TISSUE CULTURE:INCLUDES GRAM STAIN (12/08/2023 7:51 AM CDT) Final Report Positive Culture Few METHICILLIN RESISTANT Staphylococcus aureus (MRSA) isolated. 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 For susceptibility, see previous report on culture from wound culture collected 12/07/23. (POS) [facility] Organism METHICILLIN RESISTANT STAPHYLOCOCCUS AUREUS (MRSA)(POS) [facility] Gram Stain Report Corrected Report Positive Gram stain Rare PMN's seen. Rare gram positive cocci. Gram stain electronically reported to and acknowledged by: Dr. Healy Marker from OR at ??12/08/2023 10:09:09 by Jacklyn Easley MLS. Removed Pleomorphic gram variable bacilli from report. Results electronically reported to and acknowledged by: Dr. Igor Glover [facility] 12/09/2023 12:48:27. Elizabeth Schwartz MLS. (POS) [facility] Bone STRUCTURE OF LEFT FOOT / Unknown 12/08/2023 7:51 AM CDT 12/08/2023 9:00 AM CDT Comment:2. Bone first metata rsal left foot Che Palomo DP LAB MICROBIOLOGY Performing Organization Address [facility] Co de Phone Number [facility] [address] [address] * (ABNORMAL) TISSUE CULTURE:INCLUDES GRAM STAIN (12/08/2023 7:51 AM CDT) Final Report Positive Culture Few METHICILLIN RESISTANT Staphylococcus aureus (MRSA) isolated. 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 For susceptibility, see previous report on culture from wound culture collected 12/07/23. Rare Corynebacterium striatum group isolated. A member of the diphtheroid bacilli. (POS) [facility] Organism METHICILLIN RESISTANT STAPHYLOCOCCUS AUREUS (MRSA)(POS) [facility] Organism CORYNEBACTERIUM STRIATUM GROUP(POS) [facility] Gram Stain Report Positive Gram stain Rare PMN's seen. Rare gram positive cocci. Gram stain electronically reported to and acknowledged by: Dr. Healy Marker from OR at ??12/08/2023 10:09:09 by Jacklyn Easley MLS. (POS) [facility] Tissue FOOT STRUCTURE / Unknown 12/08/2023 7:51 AM CDT Comment:Add Aerobic Narrative [facility] - 12/10/2023 2:22 PM CDT Add Aerobic Che Mullent DPM LAB MICROBIOLOGY Performing Organization Address [facility] de Phone Number [address] [address] * FUNGUS CULTURE:INCLUDES SUHAS (12/08/2023 7:51 AM CDT) Final Report No fungus isolated. [facility] SUHAS Prep No fungal elements seen. [facility] Tissue FOOT STRUCTURE / Unknown 12/08/2023 7:51 AM CDT Comment:Add Aerobic Narrative [facility] - 01/05/2024 8:10 AM CDT Add Aerobic Chekatlein Mullent DPM LAB MICROBIOLOGY Performing Organization Address [facility] de Phone Number [facility] [address] [address] * ANAEROBE CULTURE (12/08/2023 7:51 AM CDT) Final Report No anaerobes isolated. [facility] Tissue FOOT STRUCTURE / Unknown 12/08/2023 7:51 AM CDT Comment:Add Aerobic Narrative [facility] - 12/14/2023 9:06 AM CDT Add Aerobic Che L Beth DPM LAB MICROBIOLOGY Performing Organization Address [facility]/State/ZIP Co de Phone Number [facility] [address] [address] * (ABNORMAL) POC GLUCOSE (12/08/2023 7:22 AM CDT) [facility] POC Glucose 236(H) 70 - 100 mg/dL [facility] POINT OF CARE Blood 12/08/2023 7:22 AM CDT Eusebio Vivar MD LABORATORY Performing Organization Address City/[facility]/ZIP Co de Phone Number [facility] POINT OF CARE [address] [place] [address], * EXTRA TUBE - BLUE (12/07/2023 4:05 PM CDT) Pathologist [facility] BLUE TUBE [facility] Comment:Blue top(Sodium citr ate) tubes are kept for 3 days from the collection date. Blood 12/07/2023 4:05 PM CDT 12/07/2023 4:24 PM CDT Eusebio Vivar MD LABORATORY Performing Organization Address [facility] Co de Phone Number [facility] [address] [address] * EXTRA TUBE - DARK GREEN (12/07/2023 4:05 PM CDT) [facility] DARK GREEN TUBE Stored [facility] Comment:Dark Green tubes (Li thium Heparin) are stored in the lab for 1 day from the collection date. Blood 12/07/2023 4:05 PM CDT 12/07/2023 4:24 PM CDT Eusebio Vivar MD LABORATORY Performing Organization Address [facility] Co de Phone Number [facility] [address] [address] * (ABNORMAL) ED CHEMISTRY LABS(NA,K,CL,CO2,GLU,CREAT,CA-IONIZED,ANION GAP) (12/07/2023 4:05 PM CDT) [facility] Sodium 139 135 - 148 mmol/L [facility] Chloride 97 92 - 108 mmol/L [facility] AnGap 15 8 - 16 mmol/L [facility] Glucose 284(H) 70 - 100 mg/dL [facility] ICA, Actual 4.89 4.40 - 5.20 mg/dL [facility] ICA, pH Corrected 4.74 4.40 - 5.20 mg/dL [facility] Creatinine 1.26(H) 0.70 - 1.25 mg/dL [facility] BICARB 26 22 - 26 mEq/L [facility] eGFR (2020 CKD-EPI) 72 >=60 ml/min/1.7 3m2 [facility] Comment: The estimated glomerular filtration rate (eGFR) was calculated using the CKD-EPI 2020 creatinine equation, which does not include race as a factor. This equation is validated in individuals 18 years of age and older, and eGFR is normalized to a body surface area of 1.73m^2. Potassium 4.5 3.5 - 5.3 mmol/L [facility] Blood 12/07/2023 4:05 PM CDT 12/07/2023 4:27 PM CDT Eusebio Vivar MD LABORATORY [facility] [address] [place] [address] * (ABNORMAL) CBC WITH PLTS/AUTO DIFF (12/07/2023 4:05 PM CDT) WBC 9.80 4.00 - 10.00 k/cmm [facility] RBC 4.08(L) 4.60 - 6.00 m/cmm [facility] Hgb 11.2(L) 13.1 - 17.5 g/dL [facility] Hematocrit 34.7(L) 40.0 - 51.0 % [facility] MCV 85.0 80.0 - 100.0 fL [facility] MCH 27.5 25.0 - 32.0 pg [facility] MCHC 32.3 31.0 - 36.0 g/dL [facility] RDW 13.7 11.5 - 14.5 % [facility] Plt 324 150 - 400 k/cmm [facility] MPV 9.4 6.5 - 12.5 fL [facility] Automated Abs Neutrophil 5.37 1.70 - 6.50 k/cmm [facility] Comment:Preliminary ANC, Fin al Result to Follow Abs Immature Granulocyte 0.12(H) 0.00 - 0.09 k/cmm [facility] Comment:The Immature Granulo cyte Absolute count contains metamyelocytes and myelocytes. Abs Neutrophil 5.37 1.70 - 6.50 k/cmm [facility] Abs Lymphocyte 2.61 0.80 - 4.00 k/cmm [facility] Abs Monocyte 1.32(H) 0.20 - 1.00 k/cmm [facility] Abs Eosinophil 0.34 0.00 - 0.60 k/cmm [facility] Abs Basophil 0.04 0.00 - 0.20 k/cmm [facility] Blood 12/07/2023 4:05 PM CDT 12/07/2023 4:51 PM CDT Eusebio Vivar MD LABORATORY Performing Organization Address City/[facility] Co de Phone Number [address] [address] * LACTATE (LACTIC ACID) (12/07/2023 4:05 PM CDT) Pathologist [facility] Lactate 2.1 0.7 - 2.1 mmol/L [facility] Blood 12/07/2023 4:05 PM CDT 12/07/2023 4:27 PM CDT Narrative [facility] - 12/07/2023 4:27 PM CDT Send specimen on ice! Eusebio Vivar MD LABORATORY [address] [address] * (ABNORMAL) C-REACTIVE PROTEIN (12/07/2023 4:05 PM CDT) C-Reactive Protein 82(H) <=4 mg/L [facility] Blood 12/07/2023 4:05 PM CDT 12/07/2023 4:51 PM CDT Eusebio Vivar MD LABORATORY Performing Organization Address [facility] Co de Phone Number [facility] [address] [address] * (ABNORMAL) SED RATE (ESR) (12/07/2023 4:05 PM CDT) Sed Rate 120(H) 2 - 10 mm/hr [facility] Blood 12/07/2023 4:05 PM CDT 12/07/2023 4:51 PM CDT Eusebio Vivar MD LABORATORY Performing Organization Address [facility] Co de Phone Number [address] [address] * BLOOD AEROBIC/ANAEROBIC CULTURE (12/07/2023 4:05 PM CDT) Final Report No growth after 5 days. [facility] Blood (Peripheral) 12/07/2023 4:05 PM CDT 12/07/2023 7:55 PM CDT Eusebio Vivar MD LAB MICROBIOLOGY Performing Organization Address [facility] de Phone Number [address] [address] documented in this encounter Visit Diagnoses Diagnosis [...] (Due: Patch removed - Provider: JENNIFER NARAYANAN, [facility] - Comment: Time automatically adjusted [...]
--- OUTSIDE RECORDS SUMMARY | 2024-03-06 08:58 | XMS_ITS | Encounter Summary ---
[facility] Organization [facility] Address [address] [place] [phone] Phone Care Team Providers Care Player Development Executive Name Role Phone Unavailable Primary Care Provider Unavailabl e Reason for Visit * Auth/Cert (Routine) Specialty Diagnoses / Procedures Referred By Katherine tidwell Referred To Contact SURGERY Diagnoses Other acute osteomyelitis of left foot ([facility] Eusebio Vivar MD [address] [place] [address] Or P4 [address] [place] [address] Referral ID Status Reason Start Date Expiration Date Visits Re quested Visits Authorized [id number] 1 1 Encounter Details Date Type Department Care Team (Late st Contact Info) Description 12/10/2023 10:39 AM CDT Anesthesia Event OR P4 [address] [place] [address] [phone] Clint White MD [address] [place] [address] [phone] Carly Jordan MD [address] [place] [address] [phone] Anesthesia Record Procedure Summary Procedure Name Responsible [...] [facility] 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 Plan discussed with B[employer]ENDER SERVER. Vitals: 12/10/23 0700 BP: 145/69 Pulse: 72 [...]
--- OUTSIDE RECORDS SUMMARY | 2024-03-06 08:59 | XMS_ITS | Encounter Summary ---
Author Organization [facility] Address [address] [place] [phone] Phone Care Team Providers Care Tax Assistant Name Role Phone Unavailable Primary Care Provider Unavailabl e Reason for Visit * Auth/Cert (Routine) Specialty Diagnoses / Procedures Referred By Katherine tidwell Referred To Contact SURGERY Diagnoses Other acute osteomyelitis of left foot ([facility]) Eusebio Vivar MD [address] [place] [address] [address] Referral ID Status Reason Start Date Expiration Date Visits Re quested Visits Authorized [id number] 1 1 Encounter Details Date Type Department Care Team (Latest Contact Info) Description 12/07/2023 3:07 PM CDT - 12/07/2023 11:59 PM CDT Hospital [facility] [address] [address] Che Campos DPM [address] [phone] Discharge Disposition: Discharged to home or self [...] Routine 12/07/2023 3:23 PM CDT 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
--- OUTSIDE RECORDS SUMMARY | 2024-03-06 08:59 | XMS_ITS | Encounter Summary ---
Author Organization [facility] Address [address] [place] [address] Phone Care Team Providers Care Tablet Repair Name Role Phone Unavailable Primary Care Provider Unavailabl e Reason for Visit * Auth/Cert (Routine) Specialty Diagnoses / Procedures Referred By Katherine tidwell Referred To Contact SURGERY Diagnoses Other acute osteomyelitis of left foot ([facility]) Eusebio Vivar MD [address] [place] [address] Or P4 [address] [place] [address] Referral ID Status Reason Start Date Expiration Date Visits Re quested Visits Authorized [id number] 1 1 Encounter Details Date Type Department Care Team ([facility] st Contact Info) Description 12/08/2023 7:35 AM CDT - 12/08/2023 9:13 AM CDT Surgery OR P4 [address] [place] [address] Che Palomo DPM [address] [address] PARTIAL AMPUTATION FOOT Social History [...] on discharge due to cost/transport issues at [place]. HOSPITAL COURSE BY PROBLEM: Acute osteomyelitis of [...] wound and tissue cultures - NWB to [facility] - F/U podiatry clinic in a [...] 12/12 - discussed with PharmD. HTN: Continue COMPUTER TRAINER amlodipine. Hyperlipidemia: Continue COMPUTER TRAINER rosuvastatin. Tobacco use disorder: Continue NRT. Hx of TBI. Malnutrition Weight: (!) 139.9 kg (308 lb 6.8 oz) Wt Change from Previous: 0 Kg Wt Change from Admit: 0 Kg % Wt Change from Adm: 0 % [place] Body Wt (IBW) Male (kg): 75.3 kg [...] Comments: Fax to Dr. Aretha Damon at [phone] PANEL HEPATIC FUNCTION Standing Status: Future Standing Exp. Date: 03/13/24 Order Comments: Fax to Dr. Aretha Damon at [phone] Scheduling Instructions: Hepatic Function Panel includes: Albumin, Alk Phos, ALT, AST, Direct Bilirubin, Total Bilirubin and Total Protein C-REACTIVE PROTEIN Standing Status: Future Standing Exp. Date: 03/13/24 Order Comments: Fax to Dr. Aretha Damon at [phone] CREATININE, SERUM Standing Status: Future Standing Exp. Date: 03/13/24 Order Comments: Fax to Dr. Aretha Damon at [phone] Referral to Physical Therapy Referral Priority: Routine [...] of plan of care? Yes Okay for Detention Facility standing orders? Order Specific Question Answer Comments OK for Detention Facility house standing orders? Yes Give Mantoux [...] hesitate to call the Hyperbaric Department at [phone] during clinic hours or page loss prevention agent staff with any updates, questions, or concerns. [...] recent) Eusebio Perez, PharmJaneen 12/13/2023 21:07 Pager: ([employer]) * Emily Hannah RN - 12/13/2023 1:07 PM CDTSummary: Discharge planning Clinical Coordinator Update Patient is medically ready for discharge back to [facility]- since 12/11. Spoke to Tabatha at [facility] today ([phone]) who reported that the patient was not [...] () of patient departure: 12/13/2023 @1530 Destination: [address] [place] [address] Type of ride: wheelchair Transportation vendor of ride: [facility] [phone] * If this ride needs to be [...] Clinical Coordinators will be informed via a [employer] page. PCS form was completed in Progress [...] infection Attending provider: Igor Glover MD Insurance: [facility] Secondary insurance: [place] [employer] [...] hesitate to call the Hyperbaric Department at [phone] during clinic hours or page loss prevention agent staff with any updates, questions, or concerns. [...] 12/12 - discussed with PharmD. HTN: Continue COMPUTER TRAINER amlodipine. Hyperlipidemia: Continue COMPUTER TRAINER rosuvastatin. Tobacco use disorder: Continue NRT. Hx of TBI. FEN: Regular consistent carb diet. Code status: Full code. VTE prophylaxis: VTE prophylaxis with lovenox to start 12/10. Lines: No central line. No mujica. Discharge planning: Discharg to [facility] in [place] when they're able to accept him back.Possibly [...] Glover MD, 12/12/2023 2:02 PM Page via Cass Art * Narcisa Tobar CISCO CONSULTANT - 12/12/2023 9:50 AM CDT . Care Management Follow-up Note Patient Name: Stephanie Low Date: 12/12/2023 Patient/Family Discharge Goals: Patient's Discharge Goal: back to [facility] Family's Discharge Goal: n/a Discharge Destination Expected [...] Selected Services Address Phone Fax Patient Preferred [facility] Pending - No Request Sent N/A [id number] [facility] [address] -- Narcisa Tobar LGSW, 12/12/2023 9:50 AM * Aretha Damon MD - 12/12/2023 8:53 AM CDT ID PROGRESS NOTE Stephanie Low 1980 male [id number] ASSESSMENT: MRSA left foot osteomyelitis S/p I&D [...] 12/12 - discussed with PharmD. HTN: Continue COMPUTER TRAINER amlodipine. Hyperlipidemia: Continue COMPUTER TRAINER rosuvastatin. Tobacco use disorder: Continue NRT. Hx of TBI. FEN: Regular consistent carb diet. Code status: Full code. VTE prophylaxis: VTE prophylaxis with lovenox to start 12/10. Lines: No central line. No mujica. Discharge planning: Discharg to [facility] in [place] when they're able to accept him back.Possibly [...] Glover MD, 12/11/2023 7:34 PM Page via Cass Art * Eusebio Perez, PharmD - 12/11/2023 3:38 [...] recent) Eusebio Perez, Jaxon 12/11/2023 19:22 Pager: ([employer]) * Lizbeth Cavazos LICSW - 12/11/2023 2:41 PM CDT Weekend Inpatient Social Work Note Summary: Weekend SW paged by bedside RN to help facilitate coordination back to TCU today. SW called Cruz Aguiar and left a voicemail. Many barriers are at play for a weekend return - patient hasIV antibiotics, he is recommended to receive 20 HBO sessions (1st today), and has [facility] Medicare Advantage (which requires prior authorization). GARY advised this likely cannot be resolved during the weekend due to the barriers listed above. Follow up needed: GARY will try to problem solve if [facility] Aguiar calls back, if not weekday team to follow up on plan for discharge. RAJ Cadena LICSW Inpatient Odd Job Worker - Casual (weekends only) Available via Spr[employer] Lizbeth Cavazos LICSW, 12/11/2023 2:41 PM Addendum [...] hesitate to call the Hyperbaric Department at [phone] during clinic hours or page loss prevention agent staff with any updates, questions, or concerns. [...] continue to follow while admitted. Please page loss prevention agent resident with questions. Patient was discussed with loss prevention agent staff Interval history: Patient seen and evaluated bedside. States that he is not having any pain and he has been comfortable in this postoperative period. He states he does not have any nausea, vomiting, fever or chills. He looks forward to HBO therapy and is impressed by the science behind it. He is hopeful that he will not have continued amputations in the future and [...] 12/12 - discussed with PharmD. HTN: Continue COMPUTER TRAINER amlodipine. Hyperlipidemia: Continue COMPUTER TRAINER rosuvastatin. Tobacco use disorder: Continue NRT. Hx of TBI. FEN: Regular consistent carb diet. Code status: Full code. VTE prophylaxis: VTE prophylaxis with lovenox to start 12/10. Lines: No central line. No mujica. 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 Denise Esteves Inpatient Clinical Coordinator [facility] Office: [phone] * Suzy Patino DPM - 12/10/2023 8:42 [...] Schizophrenia History of TBI --Patient is own [facility] RECOMMENDATIONS: 1. Dressing: Dressed in OR [...] continue to follow while admitted. Please page loss prevention agent resident with questions. Patient was discussed with loss prevention agent staff Interval history: Patient seen resting comfortably [...] 12/12 - discussed with PharmD. HTN: Continue COMPUTER TRAINER amlodipine. Hyperlipidemia: Continue COMPUTER TRAINER rosuvastatin. Tobacco use disorder: Continue NRT. Hx of TBI. FEN: Regular consistent carb diet. Code status: Full code. VTE prophylaxis: VTE prophylaxis with hep to start 12/08. Lines: No central line. No mujica. 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 [...] 12/09/2023 Expected DC Date: 12/10/2023 Social Information Lactation Specialist Used: None needed Decision Maker at Admission: Self Living Situation: residential (see comment) Patient Identified Support System: sister, significant other Services Receiving: Waivered services (see comment) Complex Medical Needs: Other (see comment) (wound care) Transportation Used for Discharge: stretcher Safety Concerns: None Behavioral Health Concerns: None Patient Family Goals Patient's Discharge Goal: back to [facility] Family' Discharge Goal: n/a Plan/Interventions Expected Discharge Disposition: Detention Facility Patient Information Verification Verified demographic information, including SSN, Next of Kin, and Guardianship: Yes Verified PCP: Yes If post-acute placement is needed, have vaccination status needs been addressed?: Not applicable Risks for Readmission: None Summary of pertinent information: Patient admitted from [facility] with concern for a left great to osteomyelitis that was resected 12/07. 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 Have a call out to [facility] to confirm bed hold ([phone]). Spoke to staff at his [facility] ([place] [phone]) to also update and confirm that he can return there when ultimately. Patient currently has started on HBO, this may be problematic with returning to [facility]. Emily Hnanah RN, 12/09/2023 1:49 PM * Farida Rosenthal [...] Schizophrenia History of TBI --Patient is own [facility] RECOMMENDATIONS: 1. Dressing: Dressed with Vashe [...] procedure. HBO consult placed. T CO2 and Dluce obtained, results indicate good probabilityfor wound healing. [...] continue to follow while inpatient Please page loss prevention agent resident with questions. Patient was discussed with loss prevention agent staff Interval history: Patient seen and evaluated [...] . Any revisions by me are documented. Fardia Rosenthal DPM, 12/09/2023 1:51 PM * Che [...] Schizophrenia History of TBI --Patient is own [facility] RECOMMENDATIONS: 1. Dressing: Dressed in operating [...] continue to follow while inpatient Please page loss prevention agent resident with questions. Patient was seen with loss prevention agent staff, Dr. Palomo Interval history: Patient is [...] male D: Stephanie Low was admitted to [address] from PACU at 1446 for Other acute osteomyelitis of leftfoot ([facility]) . Patient: alert, oriented to person, [...] informed of Patient Valuables and Belongings Policy (#[id number]): Policy reviewed - patient/family/designee has indicated that [...] 12/12 - discussed with PharmD. HTN: Continue COMPUTER TRAINER amlodipine. Hyperlipidemia: Continue COMPUTER TRAINER rosuvastatin. Tobacco use disorder: Continue NRT. Hx of TBI. FEN: Regular consistent carb diet. Code status: Full code. VTE prophylaxis: VTE prophylaxis with hep to start 12/08. Lines: No central line. No mujica. 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 [...] Shafer PA-C, 12/08/2023 8:34 AM Page via Cass Art documented in this encounter H&P Notes * [...] -F/up cultures currently in process -NPO at RI, holding VTE ppx -AM BMP, CBC, CRP, ESR Chronic / Stable / Resolved / Ruled Out #T2DM: A1c 6.8% 07/2023. Reduce COMPUTER TRAINER lantus to 15 U while NPO, Novolog 1U/CHO + LDSSI. Rechecking A1c. #HTN: COMPUTER TRAINER amlodipine 10 mg daily #HLD: COMPUTER TRAINER statin #Paranoid schizophrenia: COMPUTER TRAINER prazosin #HILL: COMPUTER TRAINER escitalopram 20 mg daily #Tobacco use disorder: [...] including pre-visit review of separately obtained history, [id number] interaction performing medically appropriate physical exam, patientcounseling/education, [...] surgery and sign off. 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 Discharge [...] wound healing. Message sent to primary team. [facility] Nursing follow up: Appreciate the opportunity to consult on this patient, Wound Ostomy Continence Services will sign off at this time. Please place additional 'Wound Consult' if wanting further assessment for this patient. Staff to continue to follow skin injury bundle. Escalate concerns to WOCN through additional consult or to the provider when barriers are identified. WOCN available Wednesday through Wednesday on SeatMe or [phone] [facility] Nursing attempts to see patients in person when possible, but will at times complete a chart/media review in order to recommend wound treatment in a timely manner. Please reconsult [facility] if wound condition changes or the [...] at PharmD General Weekend Days (Telmed[employer]) or [phone]. If no response within needed timeframe, please contact central pharmacy via phone at [phone]. Planned discharge medications are: Medication List Medications [...] NEW CONSULT NOTE Stephanie Low 1980 male [id number] REASON FOR CONSULT: I was asked to [...] bearing restrictions, otherwise bed to chair only COMPUTER TRAINER Appropriate: No (more OR) Participated in goal setting and treatment planning: Patient Agrees with goals and treatment plan: Question patient's ability to understand. Gracia Arredondo, PT 12/10/2023 Pager: [facility] PT Department * David Cortes MD - 12/09/2023 9:58 AM CDT Images from the original note were not included. [facility] HYPERBARIC MEDICINE CONSULTATION Referring clinician: Che Palomo [...] old poorly controlled DMII male referred to [facility] Hyperbaric medical team for consultation regarding concern [...] Hyperbaric Medicine [facility]. Please do not hesitate to call the department at [phone] during clinic hours ([phone]) or page the loss prevention agent HYPERBARIC staff with any questions or concerns. [...] you for allowing us to participate in [facility]. [facility]: [phone]. David Cortes MD * Angela Cardenas, OCN - 12/08/2023 3:00 PM CDTAssociated Order(s): CONSULT TO WOUND NURSE Images from the original note were not included. [facility] Nursing consulted by nursing for perineal wounds. 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 Discharge [...] wound healing. Message sent to primary team. [facility] Nursing follow up: later this week after surgery sees Staff to continue to follow skin injury bundle. Escalate concerns to WOCN through additional consult or to the provider when barriers are identified. WOCN available Wednesday through Wednesday on SeatMe or [phone] [facility] Nursing attempts to see patients in [...] Schizophrenia History of TBI --Patient is own [facility] RECOMMENDATIONS: 1. Dressing: Daily dressing changes [...] continue to follow while inpatient Please page loss prevention agent resident with questions. Patient was seen with loss prevention agent staff, Dr. Palomo CHIEF COMPLAINT: Left foot [...] OR Date: 12/10/2023 Surgeon: Suzy Patino DPM Solidworks Drafter(s): Samina Singletary DPM PGY3 Pre-Op Diagnosis: Packed [...] 1980 Sex: male Surgeon: Che Palomo DPM Solidworks Drafter(s): Niraj Lewis DPM PGY-3 Jf Sky, MS-4 [...] 2023 2242 Started nicotine gum PRN Started COMPUTER TRAINER glargine and lispro The patient remained in the emergency department through the end of my shift. Their care was signedout [id number] with the oncoming provider. Dx, DDx, Assessment and Plan was discussed with Attending Emergency Medicine Physician. Final Clinical Impression 1. Other acute osteomyelitis of left foot ([facility]) Disposition and Plan Signed out to oncoming ED provider Gael Peoples PA-C to continue ongoing care and disposition. Please see their KIET note for final details regarding this patient's plan Alena Mclain PA-C 12/07/23, 20:44 Dictation Disclaimer: Some notes are completed with voice-recognition dictation software. As a result, there may be errors in the script that have gone undetected. Errors are generally corrected in real time. Please contact me via [email or web address] staff message if you note any errors [...] PM CDT Emergency Department Physician Note [facility] HISTORY Stephanie Low is a 43 [...] 1. Other acute osteomyelitis of left foot ([facility]) DISPOSITION & PLAN Patient remained in [...] Toe Head to Toe Assessment Shift Summary [id number] Alert and oriented x3, unsure of the [...] Physical Therapy Inpatient Discharge Summary Stephanie Low [id number] Diagnosis Patient Active Problem List Diagnosis Fourniers [...] Therapist: Gracia Arredondo, PT Date: 12/14/2023 Pager: [facility] PT Department * Nursing Assessment - Kate Sarmiento RN - 12/14/2023 6:45 AM CDT Nursing Assessment Head to Toe Head to Toe Assessment Shift Summary Shift Summary [id number] Pt alert oriented and able to make [...] Toe Head to Toe Assessment Shift Summary [id number] Daily dressing change done per order, reported [...] Toe Head to Toe Assessment Shift Summary [id number] Alert and oriented x 4, able to [...] Toe Head to Toe Assessment Shift Summary [id number] Patient is alert and oriented x 4,RA.Vitals [...] amputation RLE - amputation Comments: R amputation COMPUTER TRAINER Integumentary Assessment Within Defined Limits except for: [...] Toe Head to Toe Assessment Shift Summary [id number] Patient is alert and oriented x 4,RA.Vitals [...] 12/10/2023 6:30 PM PGY-1 Green Surgery Pager: [phone] * Nursing Assessment - May Torres, RN [...] DPM - 12/10/2023 11:06 AM CDT [facility] Immediate Post Operative Note Note written: [...] Toe Head to Toe Assessment Shift Summary [id number] Alert and oriented x3, unsure of the [...] Head to Toe Assessment Shift Summary Night [id number] PT is AO x4. Able to make [...] Dennis RN - 12/08/2023 2:28 PM CDTSummary: APPLIANCE PAINTER AND REFINISHERdry transfer worker PACU to IP Nursing Handoff Note S [...] Comments: RN: Cheryl Dennis RN Extension #: [id number] * Op Note Immediate - Niraj Lewis DPM - 12/08/2023 7:48 AM CDT [facility] Immediate Post Operative Note Note written: [...] 1. Other acute osteomyelitis of left foot ([facility]) Eusebio Vivar MD, 12/08/2023 12:16 AM * Interval Note Provider - Shayna Schreiber MD - 12/07/2023 8:53 PM CDT Handoff Communication Note for Hospital Admission Verbal handoff received from Dr. Drummond in [facility]. Patient Class: Inpatient Cardiac Monitoring: [...] designation above. Please page the MOD via [employer] with clinical updates or status changes. Note [...] CDT Other acute osteomyelitis of left foot ([facility]) POC GLUCOSE Routine 12/10/2023 6:16 AM [...] CDT Other acute osteomyelitis of left foot ([facility]) TC LAB BLOOD DRAW BY VENIPUNCTURE [...] POC Glucose 255(H) 70 - 100 mg/dL [facility] Blood 12/14/2023 11:2 9 AM CDT Eusebio Vivar MD LABORATORY [facility]ARE [address] [place] [address], * (ABNORMAL) POC GLUCOSE (12/14/2023 6:32 AM CDT) POC Glucose 186(H) 70 - 100 mg/dL [facility] Blood 12/14/2023 6:32 AM CDT Eusebio Vivar MD LABORATORY Performing Organization Address [facility] Co de Phone Number [facility]INT [facility] CARE [address] [place] [address], * (ABNORMAL) POC GLUCOSE (12/13/2023 9:05 PM CDT) POC Glucose 175(H) 70 - 100 mg/dL [facility] POINT OF CARE Blood 12/13/2023 9:05 PM CDT Eusebio Vivar MD LABORATORY Performing Organization Address [facility] Co de Phone Number [facility] POINT OF [address] [address], * VANCOMYCIN LEVEL (12/13/2023 5:24 PM CDT) Vancomycin 17.0 mcg/mL [facility] LAB Comment:Expected Range (Trou gh): 10-20 mcg/ml Blood 12/13/2023 5:24 PM CDT 12/13/2023 5:46 PM CDT Narrative [facility] LAB - 12/13/2023 6:34 PM CDT Please ensure trough level drawn prior to next vancomycin dose. Thank you Peak or trough:->Trough Eusebio KolbD LABORATORY Performing Organization Address [facility] Co de Phone Number [facility] LAB [address] [address] * (ABNORMAL) POC GLUCOSE (12/13/2023 4:00 PM CDT) POC Glucose 153(H) 70 - 100 mg/dL [facility] POINT OF CARE Blood 12/13/2023 4:00 PM CDT Eusebio Vivar MD LABORATORY Performing Organization Address City/[facility] Co de Phone Number [facility] POINT OF [address] [address], * (ABNORMAL) POC GLUCOSE (12/13/2023 11:47 AM CDT) POC Glucose 271(H) 70 - 100 mg/dL [facility] POINT OF CARE Blood 12/13/2023 11:4 7 AM CDT Eusebio Vivar MD LABORATORY Performing Organization Address City/[facility] Co de Phone Number [facility] POINT OF CARE [address] [address], [place] * (ABNORMAL) POC GLUCOSE (12/13/2023 6:35 AM CDT) POC Glucose 204(H) 70 - 100 mg/dL [facility] POINT OF CARE Blood 12/13/2023 6:35 AM CDT Eusebio Vivar MD LABORATORY Performing Organization Address [facility] Co de Phone Number [facility] [address] [place] [address], [place] * (ABNORMAL) POC GLUCOSE (12/12/2023 8:54 PM CDT) POC Glucose 170(H) 70 - 100 mg/dL [facility] POINT OF [facility] Blood 12/12/2023 8:54 PM CDT Eusebio Vivar MD LABORATORY Performing Organization Address City/[facility] Co de Phone Number [facility] POINT [facility] [address] [place] [address], [place] * (ABNORMAL) POC GLUCOSE (12/12/2023 4:10 PM CDT) POC Glucose 252(H) 70 - 100 mg/dL [facility] POINT OF CARE Blood 12/12/2023 4:10 PM CDT Eusebio Vivar MD LABORATORY Performing Organization Address City/[facility] Co de Phone Number [facility] POINT OF CARE [address] [place] [address], [place] * (ABNORMAL) POC GLUCOSE (12/12/2023 11:07 AM CDT) POC Glucose 200(H) 70 - 100 mg/dL [facility] POINT OF [facility] Blood 12/12/2023 11:0 7 AM CDT Eusebio Vivar MD LABORATORY Performing Organization Address [facility] de Phone Number [facility] [address] [place], [place] [address], * (ABNORMAL) POC GLUCOSE (12/12/2023 6:42 AM CDT) POC Glucose 185(H) 70 - 100 mg/dL [facility] POINT OF [facility] Blood 12/12/2023 6:42 AM CDT Eusebio Vivar MD LABORATORY Performing Organization Address [facility] de Phone Number [facility] [address] [place] [address], [place] * (ABNORMAL) POC GLUCOSE (12/11/2023 9:10 PM CDT) POC Glucose 226(H) 70 - 100 mg/dL [facility] Blood 12/11/2023 9:10 PM CDT Eusebio Vivar MD LABORATORY Performing Organization Address [facility] de Phone Number [facility] POINT [facility] [address] [place] [phone], [place] * VANCOMYCIN LEVEL (12/11/2023 5:28 PM CDT) Vancomycin 19.6 mcg/mL [facility] Comment:Expected Range (Trou gh): 10-20 mcg/ml Blood 12/11/2023 5:28 PM CDT 12/11/2023 5:37 PM CDT Narrative [facility] - 12/11/2023 6:46 PM CDT Peak or trough:->Trough Igor Glover MD LABORATORY [facility] [address] [place] [address] * (ABNORMAL) POC GLUCOSE (12/11/2023 4:13 PM CDT) POC Glucose 173(H) 70 - 100 mg/dL [facility] POINT OF CARE Blood 12/11/2023 4:13 PM CDT Eusebio Vivar MD LABORATORY Performing Organization Address City/[facility]/ZIP Co de Phone Number [facility] POINT OF CARE [address] [place] [id number], [place] * (ABNORMAL) POC GLUCOSE (12/11/2023 11:43 AM CDT) POC Glucose 283(H) 70 - 100 mg/dL [facility] POINT OF CARE Blood 12/11/2023 11:4 3 AM CDT Eusebio Vivar MD LABORATORY Performing Organization Address [facility] Co de Phone Number [facility] POINT OF [address] [address], [place] * (ABNORMAL) POC GLUCOSE (12/11/2023 10:28 AM CDT) POC Glucose 198(H) 70 - 100 mg/dL [facility] POINT OF CARE Blood 12/11/2023 10:2 8 AM CDT Eusebio Vivar MD LABORATORY Performing Organization Address City/[facility] Co de Phone Number [facility] POINT OF CARE [address] [place] [address], [place] * (ABNORMAL) POC GLUCOSE (12/11/2023 6:41 AM CDT) POC Glucose 173(H) 70 - 100 mg/dL [facility] - POINT OF CARE Blood 12/11/2023 6:41 AM CDT Eusebio Vivar MD LABORATORY Performing Organization Address City/[facility]/ZIP Co de Phone Number [facility] POINT OF CARE [address] [place] [phone], * (ABNORMAL) CBC WITH PLTS/AUTO DIFF (12/11/2023 5:50 AM CDT) WBC 8.72 4.00 - 10.00 k/cmm [facility] RBC 3.82(L) 4.60 - 6.00 m/cmm [facility] Hgb 10.6(L) 13.1 - 17.5 g/dL [facility] Hematocrit 32.4(L) 40.0 - 51.0 % [facility] MCV 84.8 80.0 - 100.0 fL [facility] MCH 27.7 25.0 - 32.0 pg [facility] MCHC 32.7 31.0 - 36.0 g/dL [facility] RDW 13.5 11.5 - 14.5 % [facility] Plt 400 150 - 400 k/cmm [facility] MPV 9.3 6.5 - 12.5 fL [facility] Automated Abs Neutrophil 4.22 1.70 - 6.50 k/cmm [facility] Comment:Preliminary ANC, Fin al Result to Follow Abs Immature Granulocyte 0.09 0.00 - 0.09 k/cmm [facility] Comment:The Immature Granulo cyte Absolute count contains metamyelocytes and myelocytes. Abs Neutrophil 4.22 1.70 - 6.50 k/cmm [facility] Abs Lymphocyte 2.59 0.80 - 4.00 k/cmm [facility] Abs Monocyte 1.00 0.20 - 1.00 k/cmm [facility] Abs Eosinophil 0.79(H) 0.00 - 0.60 k/cmm [facility] Abs Basophil 0.03 0.00 - 0.20 k/cmm [facility] Blood 12/11/2023 5:50 AM CDT 12/11/2023 6:26 AM CDT Igor Glover MD LABORATORY [facility] [address] [address] * (ABNORMAL) PANEL BASIC METABOLIC (BMP) (12/11/2023 5:50 AM CDT) CO2 25 22 - 30 mmol/L [facility] Glucose 178(H) 70 - 100 mg/dL [facility] BUN 9 6 - 20 mg/dL [facility] Creatinine 0.92 0.70 - 1.25 mg/dL [facility] Calcium 9.0 8.6 - 10.0 mg/dL [facility] Sodium 136 135 - 148 mmol/L [facility] Potassium 4.1 3.5 - 5.3 mmol/L [facility] Chloride 100 92 - 108 mmol/L [facility] eGFR (2020 CKD-EPI) 105 >=60 ml/min/1.7 3m2 [facility] Comment: The estimated glomerular filtration rate (eGFR) was calculated using the CKD-EPI 2020 creatinine equation, which does not include race as a factor. This equation is validated in individuals 18 years of age and older, and eGFR is normalized to a body surface area of 1.73m^2. AnGap 11 8 - 16 mmol/L [facility] Blood 12/11/2023 5:50 AM CDT 12/11/2023 6:25 AM CDT Igor Glover MD LABORATORY [facility] [place] [address] * (ABNORMAL) POC GLUCOSE (12/10/2023 9:03 PM CDT) [facility] POC Glucose 206(H) 70 - 100 mg/dL [facility] POINT OF CARE Blood 12/10/2023 9:03 PM CDT Eusebio Vivar MD LABORATORY [facility] POINT OF CARE [address] [place] [address] * (ABNORMAL) POC GLUCOSE (12/10/2023 4:16 PM CDT) [facility] POC Glucose 341(H) 70 - 100 mg/dL [facility] POINT OF CARE Blood 12/10/2023 4:16 PM CDT Eusebio Vivar MD LABORATORY [facility] POINT OF CARE [address] [place] [address], [place] * XR CHEST 2 VIEWS PA [...] (ABNORMAL) POC GLUCOSE (12/10/2023 12:09 PM CDT) [facility] POC Glucose 194(H) 70 - 100 mg/dL [facility] POINT OF CARE Blood 12/10/2023 12:0 9 PM CDT Eusebio Vivar MD LABORATORY [facility] POINT OF CARE [address] [place] [address], * SURGICAL PATHOLOGY (12/10/2023 11:07 AM CDT) [facility] SURG PATH FINAL ?Surgical Pathology Report Collection Date: ?12/10/2023 11:07 CDT ? Ordering Physician: ? SUZY PATINO Received Date: ?12/10/2023 12:07 CDT ? Accession Number: ? [id number] ? Surgical Pathology Final Report Specimen Type: [...] Regalado M.D. Attending Pathologist. DDB/DDB 12.10.2023 13:39 [facility] AP Specimen FOOT STRUCTURE / Unknown 12/10/2023 11:07 AM CDT Comment:OR: Routine gross an d microscopic examination Tissue: 1st metatarsel left foot, cut margin Site: foot Additional clinical information: Suzy Patino DPM LAB PATHOLOGY Performing Organization Address [facility] Co de Phone Number [facility] [place] [address] * (ABNORMAL) POC GLUCOSE (12/10/2023 6:16 AM CDT) POC Glucose 228(H) 70 - 100 mg/dL [facility] POINT OF CARE Blood 12/10/2023 6:16 AM CDT Eusebio Vivar MD LABORATORY Performing Organization Address [facility] Co de Phone Number [facility] POINT OF CARE [address] [place] [address] * (ABNORMAL) CBC WITH PLTS/AUTO DIFF (12/10/2023 5:06 AM CDT) WBC 8.35 4.00 - 10.00 k/cmm [facility] RBC 3.81(L) 4.60 - 6.00 m/cmm [facility] Hgb 10.3(L) 13.1 - 17.5 g/dL [facility] Hematocrit 32.5(L) 40.0 - 51.0 % [facility] MCV 85.3 80.0 - 100.0 fL [facility] MCH 27.0 25.0 - 32.0 pg [facility] MCHC 31.7 31.0 - 36.0 g/dL [facility] RDW 13.4 11.5 - 14.5 % [facility] Plt 377 150 - 400 k/cmm [facility] MPV 9.4 6.5 - 12.5 fL [facility] Automated Abs Neutrophil 4.14 1.70 - 6.50 k/cmm [facility] Comment:Preliminary ANC, Fin al Result to Follow Abs Immature Granulocyte 0.08 0.00 - 0.09 k/cmm [facility] Comment:The Immature Granulo cyte Absolute count contains metamyelocytes and myelocytes. Abs Neutrophil 4.14 1.70 - 6.50 k/cmm [facility] Abs Lymphocyte 2.39 0.80 - 4.00 k/cmm [facility] Abs Monocyte 1.06(H) 0.20 - 1.00 k/cmm [facility] Abs Eosinophil 0.64(H) 0.00 - 0.60 k/cmm [facility] Abs Basophil 0.04 0.00 - 0.20 k/cmm [facility] Blood 12/10/2023 5:06 AM CDT 12/10/2023 5:40 AM CDT Igor Glover MD LABORATORY [facility] [address] [address] * (ABNORMAL) PANEL BASIC METABOLIC (BMP) (12/10/2023 5:06 AM CDT) CO2 26 22 - 30 mmol/L [facility] Glucose 204(H) 70 - 100 mg/dL [facility] BUN 11 6 - 20 mg/dL [facility] Creatinine 0.92 0.70 - 1.25 mg/dL [facility] Calcium 9.0 8.6 - 10.0 mg/dL [facility] Sodium 137 135 - 148 mmol/L [facility] Potassium 4.2 3.5 - 5.3 mmol/L [facility] Chloride 101 92 - 108 mmol/L [facility] eGFR (2020 CKD-EPI) 105 >=60 ml/min/1.7 3m2 [facility] Comment: The estimated glomerular filtration rate (eGFR) was calculated using the CKD-EPI 2020 creatinine equation, which does not include race as a factor. This equation is validated in individuals 18 years of age and older, and eGFR is normalized to a body surface area of 1.73m^2. AnGap 10 8 - 16 mmol/L [facility] Blood 12/10/2023 5:06 AM CDT 12/10/2023 5:40 AM CDT Igor Glover MD LABORATORY [facility] [place] [address] * (ABNORMAL) POC GLUCOSE (12/09/2023 9:18 PM CDT) POC Glucose 204(H) 70 - 100 mg/dL [facility] POINT OF CARE Blood 12/09/2023 9:18 PM CDT Eusebio Vivar MD LABORATORY [facility] POINT OF CARE [address] [place] [address] * (ABNORMAL) PANEL BASIC METABOLIC (BMP) (12/09/2023 5:56 PM CDT) Sodium 134(L) 135 - 148 mmol/L [facility] Potassium 4.2 3.5 - 5.3 mmol/L [facility] Chloride 99 92 - 108 mmol/L [facility] CO2 23 22 - 30 mmol/L [facility] AnGap 12 8 - 16 mmol/L [facility] Glucose 246(H) 70 - 100 mg/dL [facility] BUN 13 6 - 20 mg/dL [facility] Creatinine 0.98 0.70 - 1.25 mg/dL [facility] Calcium 8.8 8.6 - 10.0 mg/dL [facility] eGFR (2020 CKD-EPI) 97 >=60 ml/min/1.7 3m2 [facility] Comment: The estimated glomerular filtration rate (eGFR) was calculated using the CKD-EPI 2020 creatinine equation, which does not include race as a factor. This equation is validated in individuals 18 years of age and older, and eGFR is normalized to a body surface area of 1.73m^2. Blood 12/09/2023 5:56 PM CDT 12/09/2023 6:26 PM CDT Igor Glover MD LABORATORY Performing Organization Address [facility] Co de Phone Number [address] [address] * VANCOMYCIN LEVEL (12/09/2023 5:56 PM CDT) Vancomycin 22.0 mcg/mL [facility] Comment:Expected Range (Trou gh): 10-20 mcg/ml Blood 12/09/2023 5:56 PM CDT 12/09/2023 6:26 PM CDT Narrative [facility] - 12/09/2023 8:14 PM CDT Peak or trough:->Trough Gwen Gamez PharmD LABORATORY Performing Organization Address [facility] Co de Phone Number [facility] [address] [address] * (ABNORMAL) POC GLUCOSE (12/09/2023 4:08 PM CDT) POC Glucose 231(H) 70 - 100 mg/dL [facility] POINT OF CARE Blood 12/09/2023 4:08 PM CDT Eusebio Vivar MD LABORATORY Performing Organization Address [facility]/State/ZIP Co de Phone Number [facility] POINT OF CARE [address] [place] [address], [place] * (ABNORMAL) POC GLUCOSE (12/09/2023 11:13 AM CDT) POC Glucose 282(H) 70 - 100 mg/dL [facility] POINT OF CARE Blood 12/09/2023 11:1 3 AM CDT Eusebio Vivar MD LABORATORY [facility] POINT OF CARE [address] [place] [address], [place] * HBO TCO2 MEASUREMENT COMPLETE (12/09/2023 [...] Reg 2002; 10:198-207. Bridget QUIÑONEZ et al. [facility] 2009, Vol. 36(1). ? [place] 07/27/13 Suzy [...] Glucose 198(H) 70 - 100 mg/dL [facility] POINT OF CARE Blood 12/09/2023 6:43 AM CDT Eusebio Vivar MD LABORATORY Performing Organization Address [facility] Co de Phone Number [facility] POINT OF [address] [address], [place] * (ABNORMAL) POC GLUCOSE (12/08/2023 9:10 PM CDT) POC Glucose 268(H) 70 - 100 mg/dL [facility] POINT OF CARE Blood 12/08/2023 9:10 PM CDT Eusebio Vivar MD LABORATORY Performing Organization Address [facility] Co de Phone Number [facility] POINT OF [address] [address], [place] * (ABNORMAL) SED RATE (ESR) (12/08/2023 4:47 PM CDT) Sed Rate 120(H) 2 - 10 mm/hr [facility] Blood 12/08/2023 4:47 PM CDT 12/08/2023 5:07 PM CDT Suzy Shafer PA-C LABORATORY Performing Organization Address City/[facility]/ZIP Co de Phone Number [facility] [address] [address] * (ABNORMAL) PANEL BASIC METABOLIC (BMP) (12/08/2023 4:47 PM CDT) Sodium 134(L) 135 - 148 mmol/L [facility] Potassium 4.0 3.5 - 5.3 mmol/L [facility] Chloride 98 92 - 108 mmol/L [facility] CO2 24 22 - 30 mmol/L [facility] AnGap 12 8 - 16 mmol/L [facility] Glucose 247(H) 70 - 100 mg/dL [facility] BUN 16 6 - 20 mg/dL [facility] Creatinine 0.98 0.70 - 1.25 mg/dL [facility] Calcium 8.7 8.6 - 10.0 mg/dL [facility] eGFR (2020 CKD-EPI) 97 >=60 ml/min/1.7 3m2 [facility] Comment: The estimated glomerular filtration rate (eGFR) was calculated using the CKD-EPI 2020 creatinine equation, which does not include race as a factor. This equation is validated in individuals 18 years of age and older, and eGFR is normalized to a body surface area of 1.73m^2. Blood 12/08/2023 4:47 PM CDT 12/08/2023 5:07 PM CDT Suzy Shafer PA-C LABORATORY [facility] [address] [address] * (ABNORMAL) GLYCOSYLATED HGB - A1C (12/08/2023 4:47 PM CDT) Hemoglobin A1C 8.5(H) 4.0 - 5.6 % [facility] Comment: Increased risk for diabetes (prediabetes): 5.7-6.4% Diabetes >=6.5% In the absence of unequivocal hyperglycemia, diagnosis requires two abnormal test results (i.e. HbA1c and glucose) or two abnormal results from specimens collected at two different timepoints. The presence of some hemoglobin variants or red cell disorders may interfere with the measurement of hemoglobin A1c (HbA1c). Estimated Average Glucose 197(H) 68 - 114 [facility] Comment: The estimated Average Glucose (eAG) was calculated using an equation derived from a study of 507 adults with type 1, type 2, or no diabetes. Minority populations were underrepresented and children were not included. The eAG is not equivalent to a fasting glucose concentration. Blood 12/08/2023 4:47 PM CDT 12/08/2023 5:07 PM CDT Narrative [facility] - 12/08/2023 6:01 PM CDT If not done in the last 30 days. Suzy Shafer PA-C LABORATORY [facility] [address] [address] * (ABNORMAL) CBC WITH PLATELET (12/08/2023 4:47 PM CDT) WBC 10.39(H) 4.00 - 10.00 k/cmm [facility] RBC 3.59(L) 4.60 - 6.00 m/cmm [facility] Hgb 9.8(L) 13.1 - 17.5 g/dL [facility] Hematocrit 30.8(L) 40.0 - 51.0 % [facility] MCV 85.8 80.0 - 100.0 fL [facility] MCH 27.3 25.0 - 32.0 pg [facility] MCHC 31.8 31.0 - 36.0 g/dL [facility] RDW 13.5 11.5 - 14.5 % [facility] Plt 314 150 - 400 k/cmm [facility] MPV 9.3 6.5 - 12.5 fL [facility] Blood 12/08/2023 4:47 PM CDT 12/08/2023 5:07 PM CDT Suzy Shafer PA-C LABORATORY [facility] [address] [address] * (ABNORMAL) C-REACTIVE PROTEIN (12/08/2023 4:47 PM CDT) C-Reactive Protein 77(H) <=4 mg/L [facility] Blood 12/08/2023 4:47 PM CDT 12/08/2023 5:07 PM CDT Suzy Shafer PA-C LABORATORY [facility] [address] [place] [address] * (ABNORMAL) POC GLUCOSE (12/08/2023 4:20 PM CDT) POC Glucose 204(H) 70 - 100 mg/dL [facility] POINT OF CARE Blood 12/08/2023 4:20 PM CDT Eusebio Vivar MD LABORATORY Performing Organization Address City/[facility]/ZIP Co de Phone Number [facility] [address] [place] [address], [place] * (ABNORMAL) POC GLUCOSE (12/08/2023 12:35 PM CDT) POC Glucose 227(H) 70 - 100 mg/dL [facility] POINT OF [facility] Blood 12/08/2023 12:3 5 PM CDT Eusebio Vivar MD LABORATORY Performing Organization Address [facility] Co de Phone Number [address] [address], [place] * (ABNORMAL) POC GLUCOSE (12/08/2023 10:02 AM CDT) POC Glucose 263(H) 70 - 100 mg/dL [facility] POINT OF CARE Blood 12/08/2023 10:0 2 AM CDT Eusebio Vivar MD LABORATORY Performing Organization Address City/[facility]/ZIP Co de Phone Number [facility] [address] [place] [address], [place] * XR FOOT LEFT 3 V [...] POC Glucose 214(H) 70 - 100 mg/dL [facility] POINT OF CARE Blood 12/08/2023 8:32 AM CDT Eusebio Vivar MD LABORATORY [facility] POINT OF CARE [address] [place] [address], * SURGICAL PATHOLOGY (12/08/2023 7:56 AM CDT) SURG PATH FINAL ?Surgical Pathology Report Collection Date: ?12/08/2023 07:56 CDT ?Ordering Physician: ? CHE PALOMO Received Date: ?12/08/2023 08:41 CDT ?Accession Number: ? [id number] ? Surgical Pathology Final Report Specimen Type: [...] specimen reveals a yellow, trabeculated cut surface. [employer] Manager sections are submitted following decalcification as follows: A1: Resection margin, en face A2: Full cross-section of metatarsal head (DDB) DDB/DDB 12.08.2023 9:52 Microscopic Description: Microscopic examination performed and findings are reflected in the final diagnosis. I personally examined the relevant preparations and rendered and confirmed the diagnosis. ? Signed - Tootie Mackenzie M.D. Attending Pathologist. DDB/DDB 12.08.2023 9:52 [facility] AP Specimen FOOT STRUCTURE / Unknown 12/08/2023 7:56 AM CDT Comment:OR: Routine gross an d microscopic examination Tissue: Left first metatarsal head Site: left foot Additional clinical information: evaluate cut side for osteomyelitis Che Mullent DP LAB PATHOLOGY Performing Organization Address [facility] Co de Phone Number [facility] [address] [address] * FUNGUS CULTURE:INCLUDES SUHAS (12/08/2023 7:51 AM CDT) Final Report No fungus isolated. [facility] SUHAS Prep No fungal elements seen. [facility] Bone STRUCTURE OF LEFT FOOT / Unknown 12/08/2023 7:51 AM CDT 12/08/2023 9:00 AM CDT Comment:2. Bone first metata rsal left foot Che Jonbitt DP LAB MICROBIOLOGY Performing Organization Address [facility] Co de Phone Number [facility] [address] [address] * ANAEROBE CULTURE (12/08/2023 7:51 AM CDT) Final Report No anaerobes isolated. [facility] Bone STRUCTURE OF LEFT FOOT / Unknown 12/08/2023 7:51 AM CDT 12/08/2023 9:00 AM CDT Comment:2. Bone first metata rsal left foot Che L Beth DP LAB MICROBIOLOGY Performing Organization Address [facility] de Phone Number [facility] [address] [address] * (ABNORMAL) TISSUE CULTURE:INCLUDES GRAM STAIN (12/08/2023 7:51 AM CDT) Final Report Positive Culture Few METHICILLIN RESISTANT Staphylococcus aureus (MRSA) isolated. 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 For susceptibility, see previous report on culture from wound culture collected 12/07/23. (POS) [facility] Organism METHICILLIN RESISTANT STAPHYLOCOCCUS AUREUS (MRSA)(POS) [facility] Gram Stain Report Corrected Report Positive Gram stain Rare PMN's seen. Rare gram positive cocci. Gram stain electronically reported to and acknowledged by: Dr. Niraj Lewis from OR at ??12/08/2023 10:09:09 by Jacklyn Easley MLS. Removed Pleomorphic gram variable bacilli from report. Results electronically reported to and acknowledged by: [facility] [place] 12/09/2023 12:48:27. Elizabeth Schwartz MLS. (POS) [facility] Bone STRUCTURE OF LEFT FOOT / Unknown 12/08/2023 7:51 AM CDT 12/08/2023 9:00 AM CDT Comment:2. Bone first metata rsal left foot Che Palomo [facility] MICROBIOLOGY [facility] [address] [address] * (ABNORMAL) TISSUE CULTURE:INCLUDES GRAM STAIN (12/08/2023 7:51 AM CDT) Final Report Positive Culture Few METHICILLIN RESISTANT Staphylococcus aureus (MRSA) isolated. 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 For susceptibility, see previous report on culture from wound culture collected 12/07/23. Rare Corynebacterium striatum group isolated. A member of the diphtheroid bacilli. (POS) [facility] Organism METHICILLIN RESISTANT STAPHYLOCOCCUS AUREUS (MRSA)(POS) [facility] Organism CORYNEBACTERIUM STRIATUM GROUP(POS) [facility] Gram Stain Report Positive Gram stain Rare PMN's seen. Rare gram positive cocci. Gram stain electronically reported to and acknowledged by: Dr. Niraj Lewis from OR at ??12/08/2023 10:09:09 by Jacklyn Easley MLS. (POS) [facility] Tissue FOOT STRUCTURE / Unknown 12/08/2023 7:51 AM CDT Comment:Add Aerobic Narrative [facility] - 12/10/2023 2:22 PM CDT Add Aerobic Che Mullent DPM LAB MICROBIOLOGY Performing Organization Address [facility] Co de Phone Number [facility] [address] [address] * FUNGUS CULTURE:INCLUDES SUHAS (12/08/2023 7:51 AM CDT) Final Report No fungus isolated. [facility] SUHAS Prep No fungal elements seen. [facility] Tissue FOOT STRUCTURE / Unknown 12/08/2023 7:51 AM CDT Comment:Add Aerobic Narrative [facility] - 01/05/2024 8:10 AM CDT Add Aerobic Che Jonbitt DPM LAB MICROBIOLOGY Performing Organization Address [facility] Co de Phone Number [facility] [address] [address] * ANAEROBE CULTURE (12/08/2023 7:51 AM CDT) Final Report No anaerobes isolated. [facility] Tissue FOOT STRUCTURE / Unknown 12/08/2023 7:51 AM CDT Comment:Add Aerobic Narrative [facility] - 12/14/2023 9:06 AM CDT Add Aerobic Che Jonbitt DPM LAB MICROBIOLOGY Performing Organization Address [facility] Co de Phone Number [facility] [address] [address] * (ABNORMAL) POC GLUCOSE (12/08/2023 7:22 AM CDT) POC Glucose 236(H) 70 - 100 mg/dL [facility] Blood 12/08/2023 7:22 AM CDT Eusebio Vivar MD LABORATORY Performing Organization Address City/[facility]/ZIP Co de Phone Number [facility] [address] [place] [phone], * EXTRA TUBE - BLUE (12/07/2023 4:05 PM CDT) BLUE TUBE [facility] Comment:Blue top(Sodium citr ate) tubes are kept for 3 days from the collection date. Blood 12/07/2023 4:05 PM CDT 12/07/2023 4:24 PM CDT Eusebio Vivar MD LABORATORY Performing Organization Address [facility] Co de Phone Number [facility] [address] [address] * EXTRA TUBE - DARK GREEN (12/07/2023 4:05 PM CDT) DARK GREEN TUBE Stored [facility] Comment:Dark Green tubes (Li thium Heparin) are stored in the lab for 1 day from the collection date. Blood 12/07/2023 4:05 PM CDT 12/07/2023 4:24 PM CDT Eusebio Vivar MD LABORATORY Performing Organization Address [facility] Phone Number [facility] [address] [address] * (ABNORMAL) ED CHEMISTRY LABS(NA,K,CL,CO2,GLU,CREAT,CA-IONIZED,ANION GAP) (12/07/2023 4:05 PM CDT) Pathologist [facility] Sodium 139 135 - 148 mmol/L [facility] Chloride 97 92 - 108 mmol/L [facility] AnGap 15 8 - 16 mmol/L [facility] Glucose 284(H) 70 - 100 mg/dL [facility] ICA, Actual 4.89 4.40 - 5.20 mg/dL [facility] ICA, pH Corrected 4.74 4.40 - 5.20 mg/dL [facility] Creatinine 1.26(H) 0.70 - 1.25 mg/dL [facility] BICARB 26 22 - 26 mEq/L [facility] eGFR (2020 CKD-EPI) 72 >=60 ml/min/1.7 3m2 [facility] Comment: The estimated glomerular filtration rate (eGFR) was calculated using the CKD-EPI 2020 creatinine equation, which does not include race as a factor. This equation is validated in individuals 18 years of age and older, and eGFR is normalized to a body surface area of 1.73m^2. Potassium 4.5 3.5 - 5.3 mmol/L [facility] Blood 12/07/2023 4:05 PM CDT 12/07/2023 4:27 PM CDT Eusebio Vivar MD LABORATORY [facility] [address] [address] * (ABNORMAL) CBC WITH PLTS/AUTO DIFF (12/07/2023 4:05 PM CDT) WBC 9.80 4.00 - 10.00 k/cmm [facility] RBC 4.08(L) 4.60 - 6.00 m/cmm [facility] Hgb 11.2(L) 13.1 - 17.5 g/dL [facility] Hematocrit 34.7(L) 40.0 - 51.0 % [facility] MCV 85.0 80.0 - 100.0 fL [facility] MCH 27.5 25.0 - 32.0 pg [facility] MCHC 32.3 31.0 - 36.0 g/dL [facility] RDW 13.7 11.5 - 14.5 % [facility] Plt 324 150 - 400 k/cmm [facility] MPV 9.4 6.5 - 12.5 fL [facility] Automated Abs Neutrophil 5.37 1.70 - 6.50 k/cmm [facility] Comment:Preliminary ANC, Fin al Result to Follow Abs Immature Granulocyte 0.12(H) 0.00 - 0.09 k/cmm [facility] Comment:The Immature Granulo cyte Absolute count contains metamyelocytes and myelocytes. Abs Neutrophil 5.37 1.70 - 6.50 k/cmm [facility] Abs Lymphocyte 2.61 0.80 - 4.00 k/cmm [facility] Abs Monocyte 1.32(H) 0.20 - 1.00 k/cmm [facility] Abs Eosinophil 0.34 0.00 - 0.60 k/cmm [facility] Abs Basophil 0.04 0.00 - 0.20 k/cmm [facility] Blood 12/07/2023 4:05 PM CDT 12/07/2023 4:51 PM CDT Eusebio Vivar MD LABORATORY Performing Organization Address City/[facility]/ZIP Co de Phone Number [address] [address] * LACTATE (LACTIC ACID) (12/07/2023 4:05 PM CDT) Lactate 2.1 0.7 - 2.1 mmol/L [facility] Blood 12/07/2023 4:05 PM CDT 12/07/2023 4:27 PM CDT Narrative [facility] - 12/07/2023 4:27 PM CDT Send specimen on ice! Eusebio Vivar MD LABORATORY Performing Organization Address [facility] Co de Phone Number [address] [address] * (ABNORMAL) C-REACTIVE PROTEIN (12/07/2023 4:05 PM CDT) C-Reactive Protein 82(H) <=4 mg/L [facility] Blood 12/07/2023 4:05 PM CDT 12/07/2023 4:51 PM CDT Eusebio Vivar MD LABORATORY Performing Organization Address [facility] Co de Phone Number [address] [address] * (ABNORMAL) SED RATE (ESR) (12/07/2023 4:05 PM CDT) Sed Rate 120(H) 2 - 10 mm/hr [facility] Blood 12/07/2023 4:05 PM CDT 12/07/2023 4:51 PM CDT Eusebio Vivar MD LABORATORY Performing Organization Address City/[facility] Co de Phone Number [address] [address] * BLOOD AEROBIC/ANAEROBIC CULTURE (12/07/2023 4:05 PM CDT) Final Report No growth after 5 days. [facility] Blood (Peripheral) 12/07/2023 4:05 PM CDT 12/07/2023 7:55 PM CDT Eusebio Vivar MD LAB MICROBIOLOGY [facility] [address] [place] [address] documented in this encounter Visit Diagnoses Diagnosis [...] Provider: Sravani Rosado RN)[phone] (Given - Provider: Sravnai Rosado RN)[phone] (Dual Sign-Off - Provider: Sravani [...] removed - Provider: JENNIFER NARAYANAN, [facility] - Comment: Time automatically adjusted from [...]
--- OUTSIDE RECORDS SUMMARY | 2024-03-06 08:59 | XMS_ITS | Encounter Summary ---
Author Organization [facility] Address [address] [place] [phone] Phone Care Team Providers Care Working Supervisor Name Role Phone Unavailable Primary Care [...]
--- OUTSIDE RECORDS SUMMARY | 2024-03-06 08:59 | XMS_ITS | Encounter Summary ---
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 Name Role Phone Unavailable Primary Care Provider Unavailabl e Reason for Visit * Auth/Cert (Routine) Specialty Diagnoses / Procedures Referred By Katherine tidwell Referred To Contact SURGERY Diagnoses Other acute osteomyelitis of left foot ([facility]) Eusebio Vivar MD [address] [place] [phone] Or P4 [address] [place] [phone] Referral ID Status Reason Start Date Expiration Date Visits Re quested Visits Authorized [id number] 1 1 Encounter Details Date Type Department Care Team (Late st Contact Info) Description 12/08/2023 7:28 AM CDT Anesthesia Event OR P4 [address] [place] [address] [phone] Dontae Higgins MD [address] [place], [place] [phone] Carly Jordan MD [address] [place], [place] [phone] Anesthesia Record Procedure Summary Procedure Name Responsible [...] 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 Plan discussed with SEAMAN. Vitals: 12/08/23 0618 BP: 157/81 Pulse: 61 [...]
--- OUTSIDE RECORDS SUMMARY | 2024-03-06 08:59 | XMS_ITS | Encounter Summary ---
Author Organization [facility] Address [address] [place] [address] Phone Care Team Providers Care Reaming Press Operator Name Role Phone Unavailable Primary Care Provider Unavailabl e Reason for Visit * Auth/Cert (Routine) Specialty Diagnoses / Procedures Referred By Katherine tidwell Referred To Contact SURGERY Diagnoses Other acute osteomyelitis of left foot ([facility]) Eusebio Vivar MD [address] [place] [address] Or P4 [address] [place] [address] Referral ID Status Reason Start Date Expiration Date Visits Re quested Visits Authorized [id number] 1 1 Encounter Details Date Type Department Care Team (Late st Contact Info) Description 12/10/2023 9:49 AM CDT - 12/10/2023 11:34 AM CDT Surgery OR P4 [address] [place] [address] Suzy Patino DPM [address] [id number] REVISION, AMPUTATION SITE, POSSIBLE PARTIAL FOOT AMPUTATION, [...] on discharge due to cost/transport issues at [place]. HOSPITAL COURSE BY PROBLEM: Acute osteomyelitis of [...] 12/12 - discussed with PharmD. HTN: Continue OPTIMIZATION CONSULTANT amlodipine. Hyperlipidemia: Continue OPTIMIZATION CONSULTANT rosuvastatin. Tobacco use disorder: Continue NRT. Hx of TBI. Malnutrition Weight: (!) 139.9 kg (308 lb 6.8 oz) Wt Change from Previous: 0 Kg Wt Change from Admit: 0 Kg % Wt Change from Adm: 0 % Voltaire Body Wt (IBW) Male (kg): 75.3 kg [...] 03/13/24 Order Comments: Fax to Dr. Aretha Dmaon at [phone] PANEL HEPATIC FUNCTION Standing Status: Future Standing Exp. Date: 03/13/24 Order Comments: Fax to Dr. Aretha Damon at [phone] Scheduling Instructions: Hepatic Function Panel includes: Albumin, Alk Phos, ALT, AST, Direct Bilirubin, Total Bilirubin and Total Protein C-REACTIVE PROTEIN Standing Status: Future Standing Exp. Date: 03/13/24 Order Comments: Fax to Dr. Aretha Damon at [phone] CREATININE, SERUM Standing Status: Future Standing Exp. Date: 03/13/24 Order Comments: Fax to Dr. Aretha Damon at [phone] Referral to Physical Therapy Referral Priority: Routine [...] hesitate to call the Hyperbaric Department at [phone] during clinic hours or page material control analyst staff with any updates, questions, or [...] recent) Eusebio Perez PharmD 12/13/2023 21:07 Pager: ([employer]) * Emily Hannah RN - 12/13/2023 1:07 PM CDTSummary: Discharge planning Clinical Coordinator Update Patient is medically ready for discharge back to [facility]- since 12/11. Spoke to Tabatha at [facility] today ([phone]) who reported that the patient was not [...] () of patient departure: 12/13/2023 @1530 Destination: [address] [place] [address] Type of ride: wheelchair Transportation vendor of ride: [facility] [phone] * If this ride needs to be [...] Clinical Coordinators will be informed via a [employer] [place] [employer] page. PCS form was completed in Progress [...] Attending provider: Igor Glover MD Insurance: [facility] Secondary insurance: [place] [employer] Height: Height: 180.3 cm (5' [...] hesitate to call the Hyperbaric Department at [phone] during clinic hours or page material control analyst staff with any updates, questions, or [...] 12/12 - discussed with PharmD. HTN: Continue OPTIMIZATION CONSULTANT amlodipine. Hyperlipidemia: Continue OPTIMIZATION CONSULTANT rosuvastatin. Tobacco use disorder: Continue NRT. Hx of TBI. FEN: Regular consistent carb diet. Code status: Full code. VTE prophylaxis: VTE prophylaxis with lovenox to start 12/10. Lines: No central line. No mujica. Discharge planning: Discharg to [facility] in [place] when they're able to accept him back.Possibly [...] Glover MD, 12/12/2023 2:02 PM Page via [employer] * Narcisa Tobar SECURITY COORDINATOR - 12/12/2023 9:50 AM CDT . Care Management Follow-up Note Patient Name: Stephanie Low Date: 12/12/2023 Patient/Family Discharge Goals: Patient's Discharge Goal: back to [facility]' Discharge Goal: n/a Discharge [...] Selected Services Address Phone Fax Patient Preferred [facility] Pending - No Request Sent N/A [id number] [facility] [id number] -- Narcisa Tobar LGSW, 12/12/2023 9:50 AM * Aretha Damon MD - 12/12/2023 8:53 AM CDT ID PROGRESS NOTE Stephanie Low 1980 male [id number] ASSESSMENT: MRSA left foot osteomyelitis S/p I&D [...] 12/12 - discussed with PharmD. HTN: Continue OPTIMIZATION CONSULTANT amlodipine. Hyperlipidemia: Continue OPTIMIZATION CONSULTANT rosuvastatin. Tobacco use disorder: Continue NRT. Hx of TBI. FEN: Regular consistent carb diet. Code status: Full code. VTE prophylaxis: VTE prophylaxis with lovenox to start 12/10. Lines: No central line. No mujica. Discharge planning: Discharg to [facility] in [place] when they're able to accept him back.Possibly [...] Glover MD, 12/11/2023 7:34 PM Page via [employer] * Eusebio Perez, PharmD - 12/11/2023 3:38 [...] recent) Eusebio Perez PharmD 12/11/2023 19:22 Pager: ([employer]) * Lizbeth Cavazos LICSW - 12/11/2023 2:41 PM CDT Weekend Inpatient Social Work Note Summary: Weekend SW paged by bedside RN to help facilitate coordination back to TCU today. GARY called Cruz Aguiar and left a voicemail. Many barriers are at play for a weekend return - patient hasIV antibiotics, he is recommended to receive 20 HBO sessions (1st today), and has [facility] Medicare Advantage (which requires prior authorization). GARY advised this likely cannot be resolved during the weekend due to the barriers listed above. Follow up needed: GARY will try to problem solve if [facility] Aguiar calls back, if not weekday team to follow up on plan for discharge. RAJ Cadena LICSW Inpatient Bindery Technician - Casual (weekends only) Available via [employer] Lizbeth Cavazos LICSW, 12/11/2023 2:41 PM Addendum [id number]: GARY received update from attending physician sharing [...] hesitate to call the Hyperbaric Department at [phone] during clinic hours or page material control analyst staff with any updates, questions, or [...] Schizophrenia History of TBI --Patient is own [facility] RECOMMENDATIONS: 1. Dressing: Dressed with Betadine 4 [...] continue to follow while admitted. Please page material control analyst resident with questions. Patient was discussed with material control analyst staff Interval history: Patient seen and evaluated [...] 12/12 - discussed with PharmD. HTN: Continue OPTIMIZATION CONSULTANT amlodipine. Hyperlipidemia: Continue OPTIMIZATION CONSULTANT rosuvastatin. Tobacco use disorder: Continue NRT. Hx of TBI. FEN: Regular consistent carb diet. Code status: Full code. VTE prophylaxis: VTE prophylaxis with lovenox to start 12/10. Lines: No central line. No mujica. 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 Denise Esteves Inpatient Clinical Coordinator [facility] Office: [phone] * Suzy Patino DPM - 12/10/2023 8:42 [...] Schizophrenia History of TBI --Patient is own [facility] RECOMMENDATIONS: 1. Dressing: Dressed in OR with [...] continue to follow while admitted. Please page material control analyst resident with questions. Patient was discussed with material control analyst staff Interval history: Patient seen resting comfortably [...] 12/12 - discussed with PharmD. HTN: Continue OPTIMIZATION CONSULTANT amlodipine. Hyperlipidemia: Continue OPTIMIZATION CONSULTANT rosuvastatin. Tobacco use disorder: Continue NRT. Hx of TBI. FEN: Regular consistent carb diet. Code status: Full code. VTE prophylaxis: VTE prophylaxis with hep to start 12/08. Lines: No central line. No mujica. Discharge planning: Discharged to [facility] on 11/24 after admission for Demar's [...] Glover MD, 12/09/2023 10:33 PM Page via [employer] * David Mancuso, PharmD - 12/09/2023 3:54 [...] 12/09/2023 Expected DC Date: 12/10/2023 Social Information Hadoop Application Developer Used: None needed Decision Maker at Admission: Self Living Situation: shelter (see comment) Patient Identified Support System: sister, significant other Services Receiving: Waivered services (see comment) Complex Medical Needs: Other (see comment) (wound care) Transportation Used for Discharge: stretcher Safety Concerns: None Behavioral Health Concerns: None Patient Family Goals Patient's Discharge Goal: back to [facility] Family's Discharge Goal: n/a Plan/Interventions Expected Discharge Disposition: [facility] Facility Patient Information Verification Verified demographic information, including SSN, Next of Kin, and Guardianship: Yes Verified PCP: Yes If post-acute placement is needed, have vaccination status needs been addressed?: Not applicable Risks for Readmission: None Summary of pertinent information: Patient admitted from [facility] [place] with concern for a left great to osteomyelitis that was resected 12/07. 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 Have a call out to [facility] to confirm bed hold ([phone]). Spoke to staff at his [facility] ([place] [phone]) to also update and confirm that he can return there when ultimately. Patient currently has started on HBO, this may be problematic with returning to [facility]. Emily Hannah RN, 12/09/2023 1:49 [...] Schizophrenia History of TBI --Patient is own [facility] RECOMMENDATIONS: 1. Dressing: Dressed with Vashe soaked [...] continue to follow while inpatient Please page material control analyst resident with questions. Patient was discussed with material control analyst staff Interval history: Patient seen and evaluated [...] Schizophrenia History of TBI --Patient is own [facility] RECOMMENDATIONS: 1. Dressing: Dressed in operating room [...] continue to follow while inpatient Please page material control analyst resident with questions. Patient was seen with material control analyst staff, Dr. Palomo Interval history: Patient is [...] male D: Stephanie Low was admitted to [address] from PACU at 1446 for Other acute osteomyelitis of leftfoot ([facility]) . Patient: alert, oriented [...] informed of Patient Valuables and Belongings Policy (#[id number]): Policy reviewed - patient/family/designee has indicated that [...] 12/12 - discussed with PharmD. HTN: Continue OPTIMIZATION CONSULTANT amlodipine. Hyperlipidemia: Continue OPTIMIZATION CONSULTANT rosuvastatin. Tobacco use disorder: Continue NRT. Hx of TBI. FEN: Regular consistent carb diet. Code status: Full code. VTE prophylaxis: VTE prophylaxis with hep to start 12/08. Lines: No central line. No mujica. 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 [...] -F/up cultures currently in process -NPO at NE, holding VTE ppx -AM BMP, CBC, CRP, ESR Chronic / Stable / Resolved / Ruled Out #T2DM: A1c 6.8% 07/2023. Reduce OPTIMIZATION CONSULTANT lantus to 15 U while NPO, Novolog 1U/CHO + LDSSI. Rechecking A1c. #HTN: OPTIMIZATION CONSULTANT amlodipine 10 mg daily #HLD: OPTIMIZATION CONSULTANT statin #Paranoid schizophrenia: OPTIMIZATION CONSULTANT prazosin #HILL: OPTIMIZATION CONSULTANT escitalopram 20 mg daily #Tobacco use disorder: [...] including pre-visit review of separately obtained history, [id number] interaction performing medically appropriate physical exam, patientcounseling/education, [...] from the original note were not included. [facility] follow up: [facility] has made recommendations. [facility] will defer to surgery and sign off. 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 Discharge [...] wound healing. Message sent to primary team. [facility] Nursing follow up: Appreciate the opportunity to consult on this patient, Wound Ostomy Continence Services will sign off at this time. Please place additional 'Wound Consult' if wanting further assessment for this patient. Staff to continue to follow skin injury bundle. Escalate concerns to WOCN through additional consult or to the provider when barriers are identified. WOCN available Wednesday through Wednesday on [employer] or [phone] [facility] Nursing attempts to see patients in person when possible, but will at times complete a chart/media review in order to recommend wound treatment in a timely manner. Please reconsult [facility] if wound condition changes or the current [...] on service at PharmD General Weekend Days ([place]) or [phone]. If no response within needed timeframe, please contact central pharmacy via phone at [phone]. Planned discharge medications are: Medication List Medications [...] NEW CONSULT NOTE Stephanie Low 1980 male [id number] REASON FOR CONSULT: I was asked to [...] bearing restrictions, otherwise bed to chair only OPTIMIZATION CONSULTANT Appropriate: No (more OR) Participated in goal setting and treatment planning: Patient Agrees with goals and treatment plan: Question patient's ability to understand. Gracia Arredondo, PT 12/10/2023 Pager: [employer] PT Department * David Cortes MD - 12/09/2023 9:58 AM CDT Images from the original note were not included. [facility] HYPERBARIC MEDICINE CONSULTATION Referring clinician: Che Palomo [...] old poorly controlled DMII male referred to [facility] Hyperbaric medical team for consultation regarding concern [...] Hyperbaric Medicine to become a part of [facility] care. Please do not hesitate to call the department at [phone] during clinic hours ([phone]) or page the material control analyst HYPERBARIC staff with any questions or concerns. [...] allowing us to participate in [facility] care. [place] for Hyperbaric Medicine: [phone]. David Cortes MD * Angela Cardenas CWOCN - 12/08/2023 3:00 PM CDTAssociated Order(s): CONSULT TO WOUND NURSE Images from the original note were not included. [facility] Nursing consulted by nursing for perineal wounds. 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 Discharge [...] wound healing. Message sent to primary team. [facility] Nursing follow up: later this week after surgery sees Staff to continue to follow skin injury bundle. Escalate concerns to WOCN through additional consult or to the provider when barriers are identified. WOCN available Wednesday through Wednesday on [employer] or [phone] [facility] Nursing attempts to see patients in person [...] continue to follow while inpatient Please page material control analyst resident with questions. Patient was seen with material control analyst staff, Dr. Palomo CHIEF COMPLAINT: Left foot wound HISTORY OF PRESENT ILLNESS: Stephanie oLw is a 43 y.o. male is presenting [...] OR Date: 12/10/2023 Surgeon: Suzy Patino DPM Facility Planner(s): Samina Singletary DPM PGY3 Pre-Op Diagnosis: Packed [...] 1980 Sex: male Surgeon: Che Palomo DPM Facility Planner(s): Niraj Lewis DPM PGY-3 Jf Sky, MS-4 [...] 2023 2242 Started nicotine gum PRN Started OPTIMIZATION CONSULTANT glargine and lispro The patient remained in the emergency department through the end of my shift. Their care was signedout [id number] with the oncoming provider. Dx, DDx, Assessment and Plan was discussed with Attending Emergency Medicine Physician. Final Clinical Impression 1. Other acute osteomyelitis of left foot ([facility]) Disposition and Plan Signed [...] in real time. Please contact me via [employer] staff message if you note any errors requiring clarification. * Farida Beyer RN - 12/07/2023 7:41 PM CDT Assumed care of pt. SNF director here as pt was reported missing when he did not return back from the clinic. Plan for admission with OR tomorrow. NPO at midnight, pt aware. * Allyssa Drummond MD - 12/07/2023 4:25 PM CDT Emergency Department Physician Note [facility] HISTORY Stephanie Low is a 43 y.o. [...] 1. Other acute osteomyelitis of left foot ([facility]) DISPOSITION & PLAN Patient [...] Toe Head to Toe Assessment Shift Summary [id number] Alert and oriented x3, unsure of the [...] Physical Therapy Inpatient Discharge Summary Stephanie Low [id number] Diagnosis Patient Active Problem List Diagnosis Fourniers [...] to Toe Assessment Shift Summary Shift Summary [id number] Pt alert oriented and able to make [...] Toe Head to Toe Assessment Shift Summary [id number] Daily dressing change done per order, reported [...] Toe Head to Toe Assessment Shift Summary [id number] Alert and oriented x 4, able to [...] Toe Head to Toe Assessment Shift Summary [id number] Patient is alert and oriented x 4,RA.Vitals [...] amputation RLE - amputation Comments: R amputation OPTIMIZATION CONSULTANT Integumentary Assessment Within Defined Limits except for: [...] Toe Head to Toe Assessment Shift Summary [id number] Patient is alert and oriented x 4,RA.Vitals [...] 12/10/2023 6:30 PM PGY-1 [facility] Pager: [phone] * Nursing Assessment - May Torres RN [...] Singletary DPM - 12/10/2023 11:06 AM CDT [facility] Immediate Post Operative Note Note written: Day [...] Toe Head to Toe Assessment Shift Summary [id number] Alert and oriented x3, unsure of the [...] Head to Toe Assessment Shift Summary Night [id number] PT is AO x4. Able to make [...] Dennis RN - 12/08/2023 2:28 PM CDTSummary: BROWNING PROCESSORcopy cutter PACU to IP Nursing Handoff Note S [...] Comments: RN: Cheryl Dennis RN Extension #: [id number] * Op Note Immediate - Niraj Lewis DPM - 12/08/2023 7:48 AM CDT [facility] Immediate Post Operative Note Note written: Day [...] Time: 12/07/2023 3:48 PM FACULTY ATTESTATION I Esuebio Vivar MD, personally saw the patient, performed [...] 1. Other acute osteomyelitis of left foot ([facility]) Eusebio Vivar MD, 12/08/2023 12:16 AM * Interval Note Provider - Shayna Schreiber MD - 12/07/2023 8:53 PM CDT Handoff Communication Note for Hospital Admission Verbal handoff received from Dr. Drummond in [facility]. Patient Class: Inpatient Cardiac Monitoring: Not needed [...] CDT Other acute osteomyelitis of left foot ([facility]) REVISION, AMPUTATION SITE, LOWER [...] CDT Other acute osteomyelitis of left foot ([facility]) PC CULTURE,BACTERIAL,D EFINITIVE,AEROBIC ANY SOURCE Routine 12/08/2023 7:51 AM CDT PC CULTURE,BACTERIAL,D EFINITIVE,AEROBIC ANY SOURCE Routine 12/08/2023 7:51 AM CDT Other acute osteomyelitis of left foot ([facility]) PC CULTURE FUNGI ISOLATION W-WO PRESUMPTIVE ID SKIN OTH Routine 12/08/2023 7:51 AM CDT PC CULTURE FUNGI ISOLATION W-WO PRESUMPTIVE ID SKIN OTH Routine 12/08/2023 7:51 AM CDT Other acute osteomyelitis of left foot ([facility]) PC CULTURE SPECIMEN, ANAEROBIC Routine 12/08/2023 7:51 AM CDT PC CULTURE SPECIMEN, ANAEROBIC Routine 12/08/2023 7:51 AM CDT Other acute osteomyelitis of left foot ([facility]) POC GLUCOSE Routine 12/08/2023 7:22 AM [...] POC Glucose 255(H) 70 - 100 mg/dL [facility] Blood 12/14/2023 11:2 9 AM CDT Eusebio Vivar MD LABORATORY [facility] [address] [place] [address], * (ABNORMAL) POC GLUCOSE (12/14/2023 6:32 AM CDT) POC Glucose 186(H) 70 - 100 mg/dL [facility] Blood 12/14/2023 6:32 AM CDT Eusebio Vivar MD LABORATORY Performing Organization Address [facility] de Phone Number [facility] [place] [address], * (ABNORMAL) POC GLUCOSE (12/13/2023 9:05 PM CDT) POC Glucose 175(H) 70 - 100 mg/dL [facility] Blood 12/13/2023 9:05 PM CDT Eusebio Vivar MD LABORATORY Performing Organization Address [facility] [place] [address], * VANCOMYCIN LEVEL (12/13/2023 5:24 PM CDT) Vancomycin 17.0 mcg/mL [facility] Comment:Expected Range (Trou gh): 10-20 mcg/ml Blood 12/13/2023 5:24 PM CDT 12/13/2023 5:46 PM CDT Narrative [facility] - 12/13/2023 6:34 PM CDT Please ensure trough level drawn prior to next vancomycin dose. Thank you Peak or trough:->Trough Eusebio KolbD LABORATORY Performing Organization Address City/[facility] Co de Phone Number [facility] [address] [address] * (ABNORMAL) POC GLUCOSE (12/13/2023 4:00 PM CDT) POC Glucose 153(H) 70 - 100 mg/dL [facility] POINT OF CARE Blood 12/13/2023 4:00 PM CDT Eusebio Vivar MD LABORATORY [facility] POINT [facility] [address] [place] [address], [place] * (ABNORMAL) POC GLUCOSE (12/13/2023 11:47 AM CDT) POC Glucose 271(H) 70 - 100 mg/dL [facility] POINT OF CARE Blood 12/13/2023 11:4 7 AM CDT Eusebio Vivar MD LABORATORY Performing Organization Address [facility]/ZIP Co de Phone Number [facility] [address] [place] [address], [place] * (ABNORMAL) POC GLUCOSE (12/13/2023 6:35 AM CDT) POC Glucose 204(H) 70 - 100 mg/dL [facility] Blood 12/13/2023 6:35 AM CDT Eusebio Vivar MD LABORATORY Performing Organization Address [facility] Co de Phone Number [facility] [address] [place] [address], [place] * (ABNORMAL) POC GLUCOSE (12/12/2023 8:54 PM CDT) POC Glucose 170(H) 70 - 100 mg/dL [facility] POINT OF CARE Blood 12/12/2023 8:54 PM CDT Eusebio Vivar MD LABORATORY Performing Organization Address City/[facility]/ZIP Co de Phone Number [facility] PO[facility] [address] [place] [address], [place] * (ABNORMAL) POC GLUCOSE (12/12/2023 4:10 PM CDT) POC Glucose 252(H) 70 - 100 mg/dL [facility] POINT OF CARE Blood 12/12/2023 4:10 PM CDT Eusebio Vivar MD LABORATORY Performing Organization Address [facility] Co de Phone Number [facility] [address] [place] [address], [place] * (ABNORMAL) POC GLUCOSE (12/12/2023 11:07 AM CDT) POC Glucose 200(H) 70 - 100 mg/dL [facility] Blood 12/12/2023 11:0 7 AM CDT Eusebio Vivar MD LABORATORY Performing Organization Address [facility] Co de Phone Number [facility] [address] [place] [address], [place] * (ABNORMAL) POC GLUCOSE (12/12/2023 6:42 AM CDT) POC Glucose 185(H) 70 - 100 mg/dL [facility] Blood 12/12/2023 6:42 AM CDT Eusebio Vivar MD LABORATORY Performing Organization Address [facility] de Phone Number [facility] [address] [place] [address], [place] * (ABNORMAL) POC GLUCOSE (12/11/2023 9:10 PM CDT) POC Glucose 226(H) 70 - 100 mg/dL [facility] Blood 12/11/2023 9:10 PM CDT Eusebio Vivar MD LABORATORY Performing Organization Address [facility] Co de Phone Number [facility] [address] [place] [address], [place] * VANCOMYCIN LEVEL (12/11/2023 5:28 PM CDT) Vancomycin 19.6 mcg/mL [facility] Comment:Expected Range (Trou gh): 10-20 mcg/ml Blood 12/11/2023 5:28 PM CDT 12/11/2023 5:37 PM CDT Narrative [facility] - 12/11/2023 6:46 PM CDT Peak or trough:->Trough Igor Glover MD LABORATORY [facility] [address] [place] [address] * (ABNORMAL) POC GLUCOSE (12/11/2023 4:13 PM CDT) POC Glucose 173(H) 70 - 100 mg/dL [facility] Blood 12/11/2023 4:13 PM CDT Eusebio Vivar MD LABORATORY Performing Organization Address City/[facility] Co de Phone Number [facility] POINT OF [place] [id number], [place] * (ABNORMAL) POC GLUCOSE (12/11/2023 11:43 AM CDT) POC Glucose 283(H) 70 - 100 mg/dL [facility] Blood 12/11/2023 11:4 3 AM CDT Eusebio Vivar MD LABORATORY Performing Organization Address City/[facility] Co de Phone Number [facility] [place] [id number], [place] * (ABNORMAL) POC GLUCOSE (12/11/2023 10:28 AM CDT) POC Glucose 198(H) 70 - 100 mg/dL [facility] CARE Blood 12/11/2023 10:2 8 AM CDT Eusebio Vivar MD LABORATORY Performing Organization Address City/[facility]/ZIP Co de Phone Number [facility] C[facility] [address] [place], [place] [address], [place] * (ABNORMAL) POC GLUCOSE (12/11/2023 6:41 AM CDT) POC Glucose 173(H) 70 - 100 mg/dL [facility] Blood 12/11/2023 6:41 AM CDT Eusebio Vivar MD LABORATORY [facility] [address] [place] [address], [place] * (ABNORMAL) CBC WITH PLTS/AUTO DIFF (12/11/2023 5:50 AM CDT) Pathologist [facility] WBC 8.72 4.00 - 10.00 k/cmm [facility] RBC 3.82(L) 4.60 - 6.00 m/cmm [facility] Hgb 10.6(L) 13.1 - 17.5 g/dL [facility] Hematocrit 32.4(L) 40.0 - 51.0 % [facility] MCV 84.8 80.0 - 100.0 fL [facility] MCH 27.7 25.0 - 32.0 pg [facility] MCHC 32.7 31.0 - 36.0 g/dL [facility] RDW 13.5 11.5 - 14.5 % [facility] Plt 400 150 - 400 k/cmm [facility] MPV 9.3 6.5 - 12.5 fL [facility] Automated Abs Neutrophil 4.22 1.70 - 6.50 k/cmm [facility] Comment:Preliminary ANC, Fin al Result to Follow Abs Immature Granulocyte 0.09 0.00 - 0.09 k/cmm [facility] Comment:The Immature Granulo cyte Absolute count contains metamyelocytes and myelocytes. Abs Neutrophil 4.22 1.70 - 6.50 k/cmm [facility] Abs Lymphocyte 2.59 0.80 - 4.00 k/cmm [facility] Abs Monocyte 1.00 0.20 - 1.00 k/cmm [facility] Abs Eosinophil 0.79(H) 0.00 - 0.60 k/cmm [facility] Abs Basophil 0.03 0.00 - 0.20 k/cmm [facility] Blood 12/11/2023 5:50 AM CDT 12/11/2023 6:26 AM CDT Igor Glover MD LABORATORY Performing Organization Address [facility] Co de Phone Number [facility] [address] [address] * (ABNORMAL) PANEL BASIC METABOLIC (BMP) (12/11/2023 5:50 AM CDT) CO2 25 22 - 30 mmol/L [facility] Glucose 178(H) 70 - 100 mg/dL [facility] BUN 9 6 - 20 mg/dL [facility] Creatinine 0.92 0.70 - 1.25 mg/dL [facility] Calcium 9.0 8.6 - 10.0 mg/dL [facility] Sodium 136 135 - 148 mmol/L [facility] Potassium 4.1 3.5 - 5.3 mmol/L [facility] Chloride 100 92 - 108 mmol/L [facility] eGFR (2020 CKD-EPI) 105 >=60 ml/min/1.7 3m2 [facility] Comment: The estimated glomerular filtration rate (eGFR) was calculated using the CKD-EPI 2020 creatinine equation, which does not include race as a factor. This equation is validated in individuals 18 years of age and older, and eGFR is normalized to a body surface area of 1.73m^2. AnGap 11 8 - 16 mmol/L [facility] Blood 12/11/2023 5:50 AM CDT 12/11/2023 6:25 AM CDT Igor Glover MD LABORATORY Performing Organization Address [facility] Co de Phone Number [facility] [address] [address] * (ABNORMAL) POC GLUCOSE (12/10/2023 9:03 PM CDT) POC Glucose 206(H) 70 - 100 mg/dL [facility] Blood 12/10/2023 9:03 PM CDT Eusebio Vivar MD LABORATORY [facility] [address] [place] [address], [place] * (ABNORMAL) POC GLUCOSE (12/10/2023 4:16 PM CDT) POC Glucose 341(H) 70 - 100 mg/dL [facility] Blood 12/10/2023 4:16 PM CDT Eusebio Vivar MD LABORATORY [facility] [address] [place] [address], [place] * XR CHEST 2 VIEWS PA [...] of the mid metatarsal bone. Reading Radiologist: Jsoe Robledo Igor Glover MD RAD XRAY * (ABNORMAL) POC GLUCOSE (12/10/2023 12:09 PM CDT) POC Glucose 194(H) 70 - 100 mg/dL [facility] Blood 12/10/2023 12:0 9 PM CDT Eusebio Vivar MD LABORATORY [facility] [address] [place] [address], * SURGICAL PATHOLOGY (12/10/2023 11:07 AM CDT) SURG PATH FINAL ?Surgical Pathology Report Collection Date: ?12/10/2023 11:07 CDT ? Ordering Physician: ? SUZY PATINO Received Date: ?12/10/2023 12:07 CDT ? Accession Number: ? [id number] ? Surgical Pathology Final Report Specimen Type: [...] Regalado M.D. Attending Pathologist. DDB/DDB 12.10.2023 13:39 [facility] AP Specimen FOOT STRUCTURE / Unknown 12/10/2023 11:07 AM CDT Comment:OR: Routine gross an d microscopic examination Tissue: 1st metatarsel left foot, cut margin Site: foot Additional clinical information: Suzy Patino DPM LAB PATHOLOGY [facility] [address] [address] * (ABNORMAL) POC GLUCOSE (12/10/2023 6:16 AM CDT) POC Glucose 228(H) 70 - 100 mg/dL [facility] Blood 12/10/2023 6:16 AM CDT Eusebio Vivar MD LABORATORY [facility] [address] [place] [address], * (ABNORMAL) CBC WITH PLTS/AUTO DIFF (12/10/2023 5:06 AM CDT) WBC 8.35 4.00 - 10.00 k/cmm [facility] RBC 3.81(L) 4.60 - 6.00 m/cmm [facility] Hgb 10.3(L) 13.1 - 17.5 g/dL [facility] Hematocrit 32.5(L) 40.0 - 51.0 % [facility] MCV 85.3 80.0 - 100.0 fL [facility] MCH 27.0 25.0 - 32.0 pg [facility] MCHC 31.7 31.0 - 36.0 g/dL [facility] RDW 13.4 11.5 - 14.5 % [facility] Plt 377 150 - 400 k/cmm [facility] MPV 9.4 6.5 - 12.5 fL [facility] Automated Abs Neutrophil 4.14 1.70 - 6.50 k/cmm [facility] Comment:Preliminary ANC, Fin al Result to Follow Abs Immature Granulocyte 0.08 0.00 - 0.09 k/cmm [facility] Comment:The Immature Granulo cyte Absolute count contains metamyelocytes and myelocytes. Abs Neutrophil 4.14 1.70 - 6.50 k/cmm [facility] Abs Lymphocyte 2.39 0.80 - 4.00 k/cmm [facility] Abs Monocyte 1.06(H) 0.20 - 1.00 k/cmm [facility] Abs Eosinophil 0.64(H) 0.00 - 0.60 k/cmm [facility] Abs Basophil 0.04 0.00 - 0.20 k/cmm [facility] Blood 12/10/2023 5:06 AM CDT 12/10/2023 5:40 AM CDT Igor Glover MD LABORATORY [facility] [address] [address] * (ABNORMAL) PANEL BASIC METABOLIC (BMP) (12/10/2023 5:06 AM CDT) CO2 26 22 - 30 mmol/L [facility] Glucose 204(H) 70 - 100 mg/dL [facility] BUN 11 6 - 20 mg/dL [facility] Creatinine 0.92 0.70 - 1.25 mg/dL [facility] Calcium 9.0 8.6 - 10.0 mg/dL [facility] Sodium 137 135 - 148 mmol/L [facility] Potassium 4.2 3.5 - 5.3 mmol/L [facility] Chloride 101 92 - 108 mmol/L [facility] eGFR (2020 CKD-EPI) 105 >=60 ml/min/1.7 3m2 [facility] [...] [facility] Blood 12/10/2023 5:06 AM CDT 12/10/2023 5:40 AM CDT Igor Glover MD LABORATORY Performing Organization Address [facility] Co de Phone Number [facility] [address] [address] * (ABNORMAL) POC GLUCOSE (12/09/2023 9:18 PM CDT) POC Glucose 204(H) 70 - 100 mg/dL [facility] Blood 12/09/2023 9:18 PM CDT Eusebio Vivar MD LABORATORY Performing Organization Address [facility]/ZIP Co de Phone Number [facility] [address] [place] [address], * (ABNORMAL) PANEL BASIC METABOLIC (BMP) (12/09/2023 5:56 PM CDT) Sodium 134(L) 135 - 148 mmol/L [facility] Potassium 4.2 3.5 - 5.3 mmol/L [facility] Chloride 99 92 - 108 mmol/L [facility] CO2 23 22 - 30 mmol/L [facility] AnGap 12 8 - 16 mmol/L [facility] Glucose 246(H) 70 - 100 mg/dL [facility] BUN 13 6 - 20 mg/dL [facility] Creatinine 0.98 0.70 - 1.25 mg/dL [facility] Calcium 8.8 8.6 - 10.0 mg/dL [facility] [...] Igor Glover MD LABORATORY Performing Organization Address City/[facility]/ZIP Co de Phone Number [facility] [address] [address] * VANCOMYCIN LEVEL (12/09/2023 5:56 PM CDT) Pathologist [facility] Vancomycin 22.0 mcg/mL [facility] Comment:Expected Range (Trou gh): 10-20 mcg/ml Blood 12/09/2023 5:56 PM CDT 12/09/2023 6:26 PM CDT Narrative [facility] - 12/09/2023 8:14 PM CDT Peak or trough:->Trough Gwen Gamez PharmD LABORATORY [facility] [address] [address] * (ABNORMAL) POC GLUCOSE (12/09/2023 4:08 PM CDT) POC Glucose 231(H) 70 - 100 mg/dL [facility] CARE Blood 12/09/2023 4:08 PM CDT Eusebio Vivar MD LABORATORY Performing Organization Address [facility] Co de Phone Number [facility] [address] [place] [address], * (ABNORMAL) POC GLUCOSE (12/09/2023 11:13 AM CDT) POC Glucose 282(H) 70 - 100 mg/dL [facility] POINT [facility] CARE Blood 12/09/2023 11:1 3 AM CDT Eusebio Vivar MD LABORATORY Performing Organization Address [facility] de Phone Number [facility] POINT [facility] [address] [place] [address], [place] * HBO TCO2 MEASUREMENT COMPLETE (12/09/2023 [...] 2002; 10:198-207. Bridget QUIÑONEZ et al. [facility] 2009, Vol. 36(1). ? [place] [...] POC Glucose 198(H) 70 - 100 mg/dL [facility] Blood 12/09/2023 6:43 AM CDT Eusebio Vivar MD LABORATORY Performing Organization Address City/[facility]/ZIP Co de Phone Number [facility] POINT OF CARE [address] [place] [address], [place] * (ABNORMAL) POC GLUCOSE (12/08/2023 9:10 PM CDT) Pathologist [facility] POC Glucose 268(H) 70 - 100 mg/dL [facility] Blood 12/08/2023 9:10 PM CDT Eusebio Vivar MD LABORATORY [facility] CARE [address] [place] [address], [place] * (ABNORMAL) SED RATE (ESR) (12/08/2023 4:47 PM CDT) Sed Rate 120(H) 2 - 10 mm/hr [facility] Blood 12/08/2023 4:47 PM CDT 12/08/2023 5:07 PM CDT Suzy Shafer PA-C LABORATORY Performing Organization Address [facility] Co de Phone Number [facility] [address] [address] * (ABNORMAL) PANEL BASIC METABOLIC (BMP) (12/08/2023 4:47 PM CDT) Sodium 134(L) 135 - 148 mmol/L [facility] Potassium 4.0 3.5 - 5.3 mmol/L [facility] Chloride 98 92 - 108 mmol/L [facility] CO2 24 22 - 30 mmol/L [facility] AnGap 12 8 - 16 mmol/L [facility] Glucose 247(H) 70 - 100 mg/dL [facility] BUN 16 6 - 20 mg/dL [facility] Creatinine 0.98 0.70 - 1.25 mg/dL [facility] Calcium 8.7 8.6 - 10.0 mg/dL [facility] [...] Suzy Shafer PA-C LABORATORY Performing Organization Address [facility] Co de Phone Number [facility] [address] [address] * (ABNORMAL) GLYCOSYLATED HGB - A1C (12/08/2023 4:47 PM CDT) Hemoglobin A1C 8.5(H) 4.0 - 5.6 % [facility] Comment: Increased risk for diabetes (prediabetes): 5.7-6.4% Diabetes >=6.5% In the absence of unequivocal hyperglycemia, diagnosis requires two abnormal test results (i.e. HbA1c and glucose) or two abnormal results from specimens collected at two different timepoints. The presence of some hemoglobin variants or red cell disorders may interfere with the measurement of hemoglobin A1c (HbA1c). Estimated Average Glucose 197(H) 68 - 114 [facility] Comment: The estimated Average Glucose (eAG) was calculated using an equation derived from a study of 507 adults with type 1, type 2, or no diabetes. Minority populations were underrepresented and children were not included. The eAG is not equivalent to a fasting glucose concentration. Blood 12/08/2023 4:47 PM CDT 12/08/2023 5:07 PM CDT Narrative [facility] - 12/08/2023 6:01 PM CDT If not done in the last 30 days. Suzy Shafer PA-C LABORATORY Performing Organization Address [facility] Co de Phone Number [facility] [address] [address] * (ABNORMAL) CBC WITH PLATELET (12/08/2023 4:47 PM CDT) WBC 10.39(H) 4.00 - 10.00 k/cmm [facility] RBC 3.59(L) 4.60 - 6.00 m/cmm [facility] Hgb 9.8(L) 13.1 - 17.5 g/dL [facility] Hematocrit 30.8(L) 40.0 - 51.0 % [facility] MCV 85.8 80.0 - 100.0 fL [facility] MCH 27.3 25.0 - 32.0 pg [facility] MCHC 31.8 31.0 - 36.0 g/dL [facility] RDW 13.5 11.5 - 14.5 % [facility] Plt 314 150 - 400 k/cmm [facility] MPV 9.3 6.5 - 12.5 fL [facility] Blood 12/08/2023 4:47 PM CDT 12/08/2023 5:07 PM CDT Suzy Shafer PA-C LABORATORY Performing Organization Address [facility]/ZIP Co de Phone Number [facility] [address] [address] * (ABNORMAL) C-REACTIVE PROTEIN (12/08/2023 4:47 PM CDT) C-Reactive Protein 77(H) <=4 mg/L [facility] Blood 12/08/2023 4:47 PM CDT 12/08/2023 5:07 PM CDT Suzy Shafer PA-C LABORATORY [facility] [address] [place] [address] * (ABNORMAL) POC GLUCOSE (12/08/2023 4:20 PM CDT) POC Glucose 204(H) 70 - 100 mg/dL [facility] Blood 12/08/2023 4:20 PM CDT Eusebio Vivar MD LABORATORY Performing Organization Address City/[facility]/ZIP Co de Phone Number [facility] [address] [place] [address], [place] * (ABNORMAL) POC GLUCOSE (12/08/2023 12:35 PM CDT) POC Glucose 227(H) 70 - 100 mg/dL [facility] Blood 12/08/2023 12:3 5 PM CDT Eusebio Vivar MD LABORATORY [facility] [address] [place] [address], [place] * (ABNORMAL) POC GLUCOSE (12/08/2023 10:02 AM CDT) POC Glucose 263(H) 70 - 100 mg/dL [facility] POINT OF CARE Blood 12/08/2023 10:0 2 AM CDT Eusebio Vivar MD LABORATORY [facility] [address] [place] [address], [place] * XR FOOT LEFT 3 V [...] POC Glucose 214(H) 70 - 100 mg/dL [facility] Blood 12/08/2023 8:32 AM CDT Eusebio Vivar MD LABORATORY [facility] [address] [place] [address], * SURGICAL PATHOLOGY (12/08/2023 7:56 AM CDT) SURG PATH FINAL ?Surgical Pathology Report Collection Date: ?12/08/2023 07:56 CDT ?Ordering Physician: ? CHE PALOMO Received Date: ?12/08/2023 08:41 CDT ?Accession Number: ? [id number] ? Surgical Pathology Final Report Specimen Type: [...] specimen reveals a yellow, trabeculated cut surface. Director Of Individual Giving sections are submitted following decalcification as follows: A1: Resection margin, en face A2: Full cross-section of metatarsal head (DDB) DDB/DDB 12.08.2023 9:52 Microscopic Description: Microscopic examination performed and findings are reflected in the final diagnosis. I personally examined the relevant preparations and rendered and confirmed the diagnosis. ? Signed - Tootie Mackenzie M.D. Attending Pathologist. DDB/DDB 12.08.2023 9:52 [facility] AP Specimen FOOT STRUCTURE / Unknown 12/08/2023 7:56 AM CDT Comment:OR: Routine gross an d microscopic examination Tissue: Left first metatarsal head Site: left foot Additional clinical information: evaluate cut side for osteomyelitis Che Palomo [facility] PATHOLOGY Performing Organization Address [facility] de Phone Number [address] [address] * FUNGUS CULTURE:INCLUDES SUHAS (12/08/2023 7:51 AM CDT) Final Report No fungus isolated. [facility] SUHAS Prep No fungal elements seen. [facility] Bone STRUCTURE OF LEFT FOOT / Unknown 12/08/2023 7:51 AM CDT 12/08/2023 9:00 AM CDT Comment:2. Bone first metata rsal left foot Chekatelin Mullent DP LAB MICROBIOLOGY Performing Organization Address [facility] Co de Phone Number [address] [address] * ANAEROBE CULTURE (12/08/2023 7:51 AM CDT) Final Report No anaerobes isolated. [facility] Bone STRUCTURE OF LEFT FOOT / Unknown 12/08/2023 7:51 AM CDT 12/08/2023 9:00 AM CDT Comment:2. Bone first metata rsal left foot Chekatelin Mullent DP LAB MICROBIOLOGY Performing Organization Address [facility] Co de Phone Number [address] [address] * (ABNORMAL) TISSUE CULTURE:INCLUDES GRAM STAIN (12/08/2023 7:51 AM CDT) Final Report Positive Culture Few METHICILLIN RESISTANT Staphylococcus aureus (MRSA) isolated. 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 For susceptibility, see previous report on culture from wound culture collected 12/07/23. (POS) [facility] Organism METHICILLIN RESISTANT STAPHYLOCOCCUS AUREUS (MRSA)(POS) [facility] Gram Stain Report Corrected Report Positive Gram stain Rare PMN's seen. Rare gram positive cocci. Gram stain electronically reported to and acknowledged by: Dr. Niraj Lewis from OR at ??12/08/2023 10:09:09 by Jacklyn Easley MLS. Removed Pleomorphic gram variable bacilli from report. Results electronically reported to and acknowledged by: Dr. Igor Glover [facility] [place] 12/09/2023 12:48:27. Elizabeth Schwartz MLS. (POS) [facility] Bone STRUCTURE OF LEFT FOOT / Unknown 12/08/2023 7:51 AM CDT 12/08/2023 9:00 AM CDT Comment:2. Bone first metata rsal left foot Che Palomo [facility] MICROBIOLOGY [facility] [address] [address] * (ABNORMAL) TISSUE CULTURE:INCLUDES GRAM STAIN (12/08/2023 7:51 AM CDT) Final Report Positive Culture Few METHICILLIN RESISTANT Staphylococcus aureus (MRSA) isolated. 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 For susceptibility, see previous report on culture from wound culture collected 12/07/23. Rare Corynebacterium striatum group isolated. A member of the diphtheroid bacilli. (POS) [facility] Organism METHICILLIN RESISTANT STAPHYLOCOCCUS AUREUS (MRSA)(POS) [facility] Organism CORYNEBACTERIUM STRIATUM GROUP(POS) [facility] Gram Stain Report Positive Gram stain Rare PMN's seen. Rare gram positive cocci. Gram stain electronically reported to and acknowledged by: Dr. Niraj Lewis from OR at ??12/08/2023 10:09:09 by Jacklyn Easley MLS. (POS) [facility] Tissue FOOT STRUCTURE / Unknown 12/08/2023 7:51 AM CDT Comment:Add Aerobic Narrative [facility] - 12/10/2023 2:22 PM CDT Add Aerobic Che L Beth DPM LAB MICROBIOLOGY Performing Organization Address [facility] Co de Phone Number [facility] [address] [address] * FUNGUS CULTURE:INCLUDES SUHAS (12/08/2023 7:51 AM CDT) Final Report No fungus isolated. [facility] SUHAS Prep No fungal elements seen. [facility] Tissue FOOT STRUCTURE / Unknown 12/08/2023 7:51 AM CDT Comment:Add Aerobic Narrative [facility] - 01/05/2024 8:10 AM CDT Add Aerobic Che L Beth DPM LAB MICROBIOLOGY Performing Organization Address [facility] Co de Phone Number [facility] [address] [address] * ANAEROBE CULTURE (12/08/2023 7:51 AM CDT) Final Report No anaerobes isolated. [facility] Tissue FOOT STRUCTURE / Unknown 12/08/2023 7:51 AM CDT Comment:Add Aerobic Narrative [facility] - 12/14/2023 9:06 AM CDT Add Aerobic Che L Beth DPM LAB MICROBIOLOGY Performing Organization Address [facility] Co de Phone Number [facility] [address] [address] * (ABNORMAL) POC GLUCOSE (12/08/2023 7:22 AM CDT) POC Glucose 236(H) 70 - 100 mg/dL [facility] - POINT OF CARE Blood 12/08/2023 7:22 AM CDT Eusebio Vivar MD LABORATORY Performing Organization Address [facility]/ZIP Co de Phone Number [facility] [place] - POINT OF CARE [address] [place] [address], * EXTRA TUBE - BLUE (12/07/2023 4:05 PM CDT) BLUE TUBE [facility] Comment:Blue top(Sodium citr ate) tubes are kept for 3 days from the collection date. Blood 12/07/2023 4:05 PM CDT 12/07/2023 4:24 PM CDT Eusebio Vivar MD LABORATORY Performing Organization Address [facility] Co de Phone Number [facility] [place] [address] * EXTRA TUBE - DARK GREEN (12/07/2023 4:05 PM CDT) DARK GREEN TUBE Stored [facility] [facility] Comment:Dark Green tubes (Li thium Heparin) are stored in the lab for 1 day from the collection date. Blood 12/07/2023 4:05 PM CDT 12/07/2023 4:24 PM CDT Eusebio Vivar MD LABORATORY Performing Organization Address [facility] Co de Phone Number [facility] [address] [address] * (ABNORMAL) ED CHEMISTRY LABS(NA,K,CL,CO2,GLU,CREAT,CA-IONIZED,ANION GAP) (12/07/2023 4:05 PM CDT) Sodium 139 135 - 148 mmol/L [facility] Chloride 97 92 - 108 mmol/L [facility] AnGap 15 8 - 16 mmol/L [facility] Glucose 284(H) 70 - 100 mg/dL [facility] ICA, Actual 4.89 4.40 - 5.20 mg/dL [facility] ICA, pH Corrected 4.74 4.40 - 5.20 mg/dL [facility] Creatinine 1.26(H) 0.70 - 1.25 mg/dL [facility] BICARB 26 22 - 26 mEq/L [facility] eGFR (2020 CKD-EPI) 72 >=60 ml/min/1.7 3m2 [facility] Comment: The estimated glomerular filtration rate (eGFR) was calculated using the CKD-EPI 2020 creatinine equation, which does not include race as a factor. This equation is validated in individuals 18 years of age and older, and eGFR is normalized to a body surface area of 1.73m^2. Potassium 4.5 3.5 - 5.3 mmol/L [facility] Blood 12/07/2023 4:05 PM CDT 12/07/2023 4:27 PM CDT Eusebio Vivar MD LABORATORY [facility] [address] [address] * (ABNORMAL) CBC WITH PLTS/AUTO DIFF (12/07/2023 4:05 PM CDT) WBC 9.80 4.00 - 10.00 k/cmm [facility] RBC 4.08(L) 4.60 - 6.00 m/cmm [facility] Hgb 11.2(L) 13.1 - 17.5 g/dL [facility] Hematocrit 34.7(L) 40.0 - 51.0 % [facility] MCV 85.0 80.0 - 100.0 fL [facility] MCH 27.5 25.0 - 32.0 pg [facility] MCHC 32.3 31.0 - 36.0 g/dL [facility] RDW 13.7 11.5 - 14.5 % [facility] Plt 324 150 - 400 k/cmm [facility] MPV 9.4 6.5 - 12.5 fL [facility] Automated Abs Neutrophil 5.37 1.70 - 6.50 k/cmm [facility] Comment:Preliminary ANC, Fin al Result to Follow Abs Immature Granulocyte 0.12(H) 0.00 - 0.09 k/cmm [facility] Comment:The Immature Granulo cyte Absolute count contains metamyelocytes and myelocytes. Abs Neutrophil 5.37 1.70 - 6.50 k/cmm [facility] Abs Lymphocyte 2.61 0.80 - 4.00 k/cmm [facility] Abs Monocyte 1.32(H) 0.20 - 1.00 k/cmm [facility] Abs Eosinophil 0.34 0.00 - 0.60 k/cmm [facility] Abs Basophil 0.04 0.00 - 0.20 k/cmm [facility] Blood 12/07/2023 4:05 PM CDT 12/07/2023 4:51 PM CDT Eusebio Vivar MD LABORATORY Performing Organization Address City/[facility]/ZIP Co de Phone Number [facility] [address] [address] * LACTATE (LACTIC ACID) (12/07/2023 4:05 PM CDT) Pathologist [facility] Lactate 2.1 0.7 - 2.1 mmol/L [facility] Blood 12/07/2023 4:05 PM CDT 12/07/2023 4:27 PM CDT Narrative [facility] - 12/07/2023 4:27 PM CDT Send specimen on ice! Eusebio Vivar MD LABORATORY Performing Organization Address [facility] Co de Phone Number [address] [address] * (ABNORMAL) C-REACTIVE PROTEIN (12/07/2023 4:05 PM CDT) C-Reactive Protein 82(H) <=4 mg/L [facility] Blood 12/07/2023 4:05 PM CDT 12/07/2023 4:51 PM CDT Eusebio Vivar MD LABORATORY Performing Organization Address [facility] Co de Phone Number [facility] [address] [address] * (ABNORMAL) SED RATE (ESR) (12/07/2023 4:05 PM CDT) Sed Rate 120(H) 2 - 10 mm/hr [facility] Blood 12/07/2023 4:05 PM CDT 12/07/2023 4:51 PM CDT Eusebio Vivar MD LABORATORY Performing Organization Address [facility] Co de Phone Number [facility] [address] [address] * BLOOD AEROBIC/ANAEROBIC CULTURE (12/07/2023 4:05 PM CDT) Final Report No growth after 5 days. [facility] Blood (Peripheral) 12/07/2023 4:05 PM CDT 12/07/2023 7:55 PM CDT Eusebio Vivar MD LAB MICROBIOLOGY Performing Organization Address [facility] de Phone Number [facility] [address] [address] documented in this encounter Visit Diagnoses Diagnosis [...] Provider: Sravani Rosado RN)[phone] (Given - Provider: Susei Matson, RN) 0917 (Delayed (keeps Due time) [...] (Due: Patch removed - Provider: JENNIFER NARAYANAN, [facility] - Comment: Time automatically adjusted [...]
--- OUTSIDE RECORDS SUMMARY | 2024-03-06 09:00 | XMS_ITS | Encounter Summary ---
Author Organization [facility] Address [address] [place] [address] Phone Care Team Providers Care Hydraulic Assembler Name Role Phone Unavailable Primary Care [...]
--- OUTSIDE RECORDS SUMMARY | 2024-03-06 09:00 | XMS_ITS | Encounter Summary ---
Author Organization [facility] Address [address] [place] [address] Phone Care Team Providers Care Canceling Machine Operator Name Role Phone Unavailable Primary Care Provider Unavailabl e Encounter Details Date Type Department Care Team (Late st Contact Info) Description 11/10/2023 Orders Only [facility] Film Room [facility] Radiology Department DANISHA [address] [address] Provider, Outside [place] [address] Referral of patient (Primary Dx) Social History [...] FILMS (11/10/2023 10:46 AM CDT) Narrative User, [id number] - 11/10/2023 3:20 PM CDT Outside Film Only Outside Provider RAD OUTSIDE FILMS documented in this encounter Visit Diagnoses Diagnosis Referral of patient- Primary Referral of patient without examination or treatment documented in this encounter Additional Health Concerns Infection Onset Date Last Indicated Resolved Time 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
--- OUTSIDE RECORDS SUMMARY | 2024-03-06 09:00 | XMS_ITS | Encounter Summary ---
Author Organization [facility] Address [address] [place] [address] Phone Care Team Providers Care Bench Molder Apprentice Name Role Phone Unavailable Primary Care Provider [...]
--- OUTSIDE RECORDS SUMMARY | 2024-03-06 09:00 | XMS_ITS | Encounter Summary ---
Author Organization [facility] Address [address] [place] [address] Phone Care Team Providers Care Toby Maker Name Role Phone Unavailable Primary Care [...]
--- OUTSIDE RECORDS SUMMARY | 2024-03-06 09:00 | XMS_ITS | Encounter Summary ---
Author Organization [facility] Address [address] [place] [address] Phone Care Team Providers Care Project Manager Interior Design Name Role Phone Unavailable Primary Care Provider [...]
--- OUTSIDE RECORDS SUMMARY | 2024-03-06 09:00 | XMS_ITS | Encounter Summary ---
Author Organization [facility] Address [address] [place] [address] Phone Care Team Providers Care Side Boss Name Role Phone Unavailable Primary Care Provider Unavailabl e Reason for Visit * Reason Onset Date Comments Post-op Complications 12/02/2023 Encounter Details Date Type Department Care Team (Late st Contact Info) Description 12/02/2023 Nurse Triage [facility] [address] [address] Angi Aranda, RN [address] [place] [address] Post-op Complications Social History Tobacco Use Types [...] D: Received call initially from Farida from [facility] regarding patient, stating that patient's wound on his left operative foot/toe appears to be dehissed. States the patient receives dressingchanges every day on the left foot. Was transferred to [facility] to get more information [facility] states that the patient arrived sic days [...] answer question Protocols used: Post-Op Symptoms and [id number] documented in this encounter Plan of Treatment Not on file documented as of this encounter Visit Diagnoses Not on filedocumented in this encounter Additional Health Concerns Infection Onset Date Last Indicated Resolved Time 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
--- OUTSIDE RECORDS SUMMARY | 2024-03-06 09:00 | XMS_ITS | Encounter Summary ---
Author Organization [facility] Address [address] [place] [address] Phone Care Team Providers Care Microbiology Director Name Role Phone Unavailable Primary Care [...]
--- OUTSIDE RECORDS SUMMARY | 2024-03-06 09:00 | XMS_ITS | Encounter Summary ---
Author Organization [facility] Address [address] [place] [address] Phone Care Team Providers Care Cleaning Specialist Name Role Phone Unavailable Primary Care Provider Unavailabl e Reason for Visit * Reason Comments Post Op * Auth/Cert (Routine) Specialty Diagnoses / Procedures Referred By Katherine tidwell Referred To Contact SURGERY Diagnoses Other acute osteomyelitis of left foot ([facility]) Eusebio Vivar MD [address] [place] [address] [address] Referral ID Status Reason Start Date Expiration Date Visits Re quested Visits Authorized [id number] 1 1 Encounter Details Date Type Department Care Team ([facility] Contact Info) Description 12/07/2023 2:30 PM CDT Office Visit [facility] [address] [address] Che Campos DPM [address] [address] 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 Confirmed last admission -XR was completed in clinic today. No additional XR needed in ED -This is a low risk surgery with known risk factors including osteomyelitis and nonhealing amputation site. 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 (POS) [facility] Organism METHICILLIN RESISTANT STAPHYLOCOCCUS AUREUS (MRSA)(POS) [facility] Organism CORYNEBACTERIUM STRIATUM GROUP(POS) [facility] Gram Stain Report No PMN's seen. No organisms seen. [facility] Swab STRUCTURE OF LEFT FOOT / Unknown 12/07/2023 3:00 PM CDT 12/07/2023 5:23 PM CDT Narrative [facility] - 12/10/2023 10:38 AM CDT Left [...] 1: Sensitive Che Campos DPM LAB MICROBIOLOGY [facility] [address] [address] documented in this encounter Visit Diagnoses Diagnosis 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CMS/[facility])- Primary Cellulitis of left lower extremity Cellulitis and abscess of leg, except foot 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CMS/[facility]) documented in this encounter Additional Health Concerns Infection Onset Date Last Indicated Resolved Time 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
--- OUTSIDE RECORDS SUMMARY | 2024-03-06 09:00 | XMS_ITS | Encounter Summary ---
Author Organization [facility] Address [address] [place] [address] Phone Care Team Providers Care Rubber Belt Splicer Name Role Phone Unavailable Primary Care Provider [...]
--- OUTSIDE RECORDS SUMMARY | 2024-03-06 09:00 | XMS_ITS | Encounter Summary ---
Author Organization [facility] Address [address] [place] [address] Phone Care Team Providers Care Excellence Specialist Name Role Phone Unavailable Primary Care [...]
--- OUTSIDE RECORDS SUMMARY | 2024-03-06 09:00 | XMS_ITS | Clinical Summary ---
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 1 Each 07/24/19 23 Active durable medical equipment (DME)Indications:F ollow-up examination after orthopedic surgery,Osteomyeli tis of right foot, unspecified type (HC),Diabetic ulcer of right midfoot associated with type 2 diabetes mellitus, with necrosis of muscle (HC) SQUARED TOE POST OP SHOE, LARGE, REF: [phone] 1 Each 10/15/19 23 Active ondansetron (ZOFRAN [...] SQUARED TOE POST OP SHOE, LARGE, REF: [phone] 1 Each 12/31/19 23 Active acetaminophen (TYLENOL [...] doses. 75 Each 10/27/19 24 Active transmitter (MobilePaks G6 Transmitter) for continuous blood glucose monitor [...] at bedtime. 28 Tablet 01/25/20 24 Active ciprofloxacin HCl (CIPROFLOXACIN, BULK, MISC) As directed 500 mg two times daily. take 1 table by mouth twice daily for 10 days. Active Diaper,Brief, Adult,DisposableIn dications:Other urinary incontinence For [...] daily. 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 283 g 02/02/20 Active amLODIPine (NORVASC) 10 mg tabletIndications: HTN (hypertension) TAKE 1 TABLET BY MOUTH DAILY *HOLD FOR SBP LESS THAN 120* 28 Tablet 12 02/28/20 24 Active cyclobenzaprine (FLEXERIL) 10 mg tabletIndications: Muscle spasm TAKE 1 TABLET BY MOUTH 3 TIMES DAILY 84 Tablet 12 02/28/20 24 Active acetaminophen (TYLENOL) 325 mg tabletIndications: Pain TAKE 3 TABLETS BY MOUTH 3 TIMES DAILY 100 Tablet 11 02/28/20 Active Stimulant Laxative Plus 8.6-50 mg tabletIndications: Chronic constipation TAKE 2 TABLETS BY MOUTH TWICE DAILY 112 Tablet 12 02/28/20 Active chlorhexidine (PERIDEX) 0.12 % solutionIndication s:Chronic gum disease RINSE WITH 15ML FOR 30 SECONDS ONCE DAILY THEN SPIT. NOTHING BY MOUTH FOR 30 MINUTES AFTER 473 mL 11 03/01/20 Active acetaminophen (TYLENOL) 325 mg tablet Take 650 mg by mouth three times daily. Take 3 tablets by mouth 3 times daily. Discontinued amLODIPine (NORVASC) 10 mg tablet Take 10 mg by mouth once daily. Hold for SBP less than 120. Discontinued chlorhexidine (PERIDEX) 0.12 % solution Swish and spit 15 mL by mouth once daily. rinse with 15 ml for 30 seconds once daily then spit. Nothing by mouth for 30 minutes after. Discontinued sennosides-docusat e (SENOKOT S) (8.6-50 mg) tablet Take 2 Tablets by mouth two times daily. Discontinued Active Problems Problem Noted Date Diagnosed Date [...] Encounters Date Type Department Care Team Description 02/27/2024 Refill [facility] [address] [place] [address] Jose R Foster MD Refill Request (Chlorhexidine) 02/22/2024 Refill [facility] [address] [place] [address] Jose R Foster MD Refill Request (Acetaminophen, Stimulant Laxative Plus) 02/22/2024 Refill [facility] [address] [place] [address] Jose R Foster MD Refill Request (Amlodipine, Cyclobenzaprine) 02/02/2024 3:20 PM CDT Office Visit [address] [address] Jose R Foster MD Diabetes; Hospital F/U ([facility] 12/07[facility]23, left foot); Wound Check (groin) 02/02/2024 Travel 01/25/2024 1:30 PM CDT Office Visit [address] [address] Trey Kim MD Follow Up; Medication Management (feeling, good. I'm sad, because my taxi tickets didn't come in yet. And my back is really sore) 01/25/2024 Travel 01/24/2024 Refill [facility] [address] [place] [address] Jose R Foster MD Refill Request (Dexcom [...] Care Team (Late st Contact Info) Description 03/29/2024 2:30 PM PRODUCTION TEAM MANAGER Office Visit [facility] [address] [place] [address] Vini Hayden DPM [address] [place] [address] 05/11/2024 10:50 AM PRODUCTION TEAM MANAGER Office Visit [facility] [address] [place] [address] Jose R Foster MD [address] [place] [address] Health Maintenance Due Date Last Done Comments [...] for age 6-64 Completed 07/24/19 23, 04/19/2019 Goals Goal Patient Goal Type Associated [...] MONITORING (POCT) (02/02/2024 3:14 PM CDT) Pathologist [facility] POC HEMOGLOBIN A1C 10.0(H) <6.0 % OF TOTAL HGB [facility] Comment: Any point of care results exhibiting inconsistency with the patient's clinical status should be repeated using a different testing method. Blood BLOOD SPECIMEN / Unknown 02/02/2024 3:14 PM CDT 02/02/2024 3:14 PM CDT Jose R Foster MD CHEMISTRY [facility] [address] [place] [address], [facility] [address] [place] [address] * (ABNORMAL) CBC WITH AUTO DIFFERENTIAL (02/02/2024 [...] Tank NEUTROPHILS 56.6 % [facility] LYMPHOCYTES 31.7 % [facility] MONOCYTES 8.3 % [facility] EOSINOPHILS 2.9 % [facility] BASOPHILS 0.5 % [facility] 02/02/2024 3:13 PM CDT 02/02/2024 3:13 PM CDT Jose R Foster MD HEMATOLOGY [facility] [employer] [facility] [facility] [address] [place] [address], [facility] [address] [place] [address] * (ABNORMAL) BASIC METABOLIC PANEL (02/02/2024 3:13 PM CDT) [facility] GLUCOSE 326(H) 65 - 99 mg/dL [facility] Comment: ? Fasting reference interval For someone without known diabetes, a glucose value >125 mg/dL indicates that they may have diabetes and this should be confirmed with a follow-up test. UREA NITROGEN (BUN) 12 7 - 25 mg/dL [facility] CREATININE 1.02 0.60 - 1.29 mg/dL [facility] EGFR 92 > OR = 60 mL/min/1. 73m2 [facility] BUN/CREATININE RATIO SEE NOTE: 6 - 22 (calc) [facility] Comment: ?? Not Reported: BUN and Creatinine are within ?? reference range. ? SODIUM 135 135 - 146 mmol/L [facility] POTASSIUM 4.2 3.5 - 5.3 mmol/L [facility] CHLORIDE 98 98 - 110 mmol/L [facility] CARBON DIOXIDE 26 20 - 32 mmol/L [facility] ELECTROLYTE BALANCE 11 7 - 17 mmol/L (calc) [facility] CALCIUM 9.1 8.6 - 10.3 mg/dL [facility] Blood BLOOD SPECIMEN / Unknown 02/02/2024 3:13 PM CDT 02/02/2024 3:13 PM CDT Jose R Foster MD CHEMISTRY [employer] [facility] [address] [place] [address], [facility] [address] [place] [address] * (ABNORMAL) LIPID PANEL W REFLEX MEASURED LDL (07/27/2023 2:22 PM CDT) CHOLESTEROL,TOTAL 190 100 - 199 mg/dL 07/27/2023 9:24 PM CDT [facility] Comment: Cholesterol, Total Reference Ranges Desirable <200 mg/dL Borderline 200-239 mg/dL High >=240 mg/dL TRIGLYCERIDES 340(H) <150 mg/dL 07/27/2023 9:24 PM CDT [facility] HDL CHOLESTEROL 45 >40 mg/dL 9:24 PM CDT [facility] NON-HDL CHOLESTEROL 145(H) <145 mg/dl 07/27/2023 9:24 PM CDT [facility] CHOL/HDL RATIO 4.22 <4.50 07/27/2023 9:24 PM CDT [facility] LDL CHOLESTEROL 77 <=130 mg/dL 07/27/2023 9:24 PM CDT [facility] VLDL CHOLESTEROL 68(H) <=30 mg/dL 07/27/2023 9:24 PM CDT [facility] PROVIDER ORDERED STATUS RANDOM 07/27/2023 9:24 PM CDT [facility] Blood BLOOD SPECIMEN / Unknown Venipuncture / Unknown 07/27/2023 2:22 PM CDT 07/27/2023 2:25 PM CDT Trey Kim MD CHEMISTRY [facility] [address] [place] [address], from Last 3 Months or Most Recently [...] 8:06 AM 11/08/2018 2:17 PM Care Teams Block Cuber Relationship Specialty Start Date End Date Votel, Jose R Garvey MD [address] [place] [address] PCP - General Family Practice 07/23/22 Nghia Arauz MD Family Practice 12/25/10
--- OUTSIDE RECORDS SUMMARY | 2024-03-06 09:00 | XMS_ITS | Encounter Summary ---
Author Organization [facility] Address [address] [place] [address] Phone Care Team Providers Care Paint Spraying Machine Operator Helper Name Role Phone Unavailable Primary [...]
--- OUTSIDE RECORDS SUMMARY | 2024-03-06 09:00 | XMS_ITS | Encounter Summary ---
Author Organization [facility] Address [address] [place] [address] Phone Care Team Providers Care Clerk Specialist Name Role Phone Unavailable Primary Care [...]
--- OUTSIDE RECORDS SUMMARY | 2024-03-06 09:00 | XMS_ITS | Encounter Summary ---
Author Organization [facility] Address [address] [place] [address] Phone Care Team Providers Care Horse Shoer Name Role Phone Unavailable Primary Care Provider [...]
--- OUTSIDE RECORDS SUMMARY | 2024-03-06 09:00 | XMS_ITS | Encounter Summary ---
Author Organization [facility] Address [address] [place] [address] Phone Care Team Providers Care Caster Investment Casting Name Role Phone Unavailable Primary Care Provider [...]
--- OUTSIDE RECORDS SUMMARY | 2024-03-06 09:00 | XMS_ITS | Encounter Summary ---
Author Organization [facility] Address [address] [place] [address] Phone Care Team Providers Care Wind Science And Planning Name Role Phone Unavailable Primary Care Provider [...]
--- OUTSIDE RECORDS SUMMARY | 2024-03-06 09:00 | XMS_ITS | Encounter Summary ---
Author Organization [facility] Address [address] [place] [address] Phone Care Team Providers Care Executor Of Estate Name Role Phone Unavailable Primary Care Provider [...]
--- OUTSIDE RECORDS SUMMARY | 2024-03-06 09:00 | XMS_ITS | Encounter Summary ---
Author Organization [facility] Address [address] [place] [address] Phone Care Team Providers Care Manual Plate Filler Name Role Phone Unavailable Primary Care [...]
--- OUTSIDE RECORDS SUMMARY | 2024-03-06 09:00 | XMS_ITS | Encounter Summary ---
Author Organization [facility] Address [address] [place] [address] Phone Care Team Providers Care Finger Buff Sewer Name Role Phone Unavailable Primary Care Provider [...]
--- OUTSIDE RECORDS SUMMARY | 2024-03-06 09:00 | XMS_ITS | Encounter Summary ---
Author Organization [facility] Address [address] [place] [address] Phone Care Team Providers Care Solids Control Technician Name Role Phone Unavailable Primary Care [...]
--- OUTSIDE RECORDS SUMMARY | 2024-03-06 09:00 | XMS_ITS | Encounter Summary ---
Author Organization [facility] Address [address] [place] [address] Phone Care Team Providers Care Dentist Attendant Name Role Phone Unavailable Primary Care [...]
== END 2024-03-06 08:53 | disposition home or self-care (01) ==
LOC: WOUND 08:53
PROVIDERS: PCP Family Medicine; Visit Provider Nurse Practitioner Family
DX: E11.622 Type 2 diabetes mellitus with other skin ulcer (principal); L98.412 Non-pressure chronic ulcer of buttock with fat layer exposed; Z79.4 Long term (current) use of insulin
CPT/HCPCS: 97602; G0463

== ENCOUNTER 2024-03-13 08:54 | Outpatient (CLI) | payer MEDICARE, MEDICAID, SELFPAY ==
--- OUTSIDE RECORDS SUMMARY | 2024-03-13 08:56 | XMS_ITS | Clinical Summary ---
Author Organization [employer] Address [address] [facility] [place] [address] Phone Care Team Providers Care Production Controller Name Role Phone Unavailable Primary Care Provider Unavailabl e Source Comments [employer] is fully rolled out on [employer]. Last update 10/12/08.[employer] Allergies No known active allergies Medications * [...] [facility] [address] [address] Afshan Sims DPM S/P foot surgery, right (Primary Dx); 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[facility]) Discharge Disposition: Discharged to home or self care 01/20/2024 9:54 AM CDT - 01/20/2024 11:59 PM CDT Hospital Encounter [facility] [address] [place] [address] David Cortes MD Routine, Hbo - Discharge Disposition: Discharged to home or self care 01/20/2024 Travel 01/19/2024 10:30 AM CDT - 01/19/2024 11:59 PM CDT Hospital Encounter [facility] [address] [place] [address] Nikolai Martinez MD Routine, Hbo - Discharge Disposition: Discharged to home or self care 01/19/2024 Travel 01/18/2024 10:06 AM CDT - 01/18/2024 11:59 PM CDT Hospital Encounter [facility] [address] [place] [address] David Cortes MD Routine, Hbo - Discharge Disposition: Discharged to home or self care 01/18/2024 Travel 01/17/2024 9:42 AM CDT - 01/17/2024 11:59 PM CDT Hospital Encounter [facility] [address] [place] [address] Douglas Morris II, MD Routine, Hbo - Discharge Disposition: Discharged to home or self care 01/17/2024 Travel 01/12/2024 9:53 AM CDT - 01/12/2024 11:59 PM CDT Hospital Encounter [facility] [address] [place] [address] David Cortes MD Routine, Hbo - Discharge Disposition: Discharged to home or self care 01/12/2024 Travel 01/11/2024 10:01 AM CDT - 01/11/2024 11:59 PM CDT Hospital Encounter [facility] [address] [place] [address] Nikolai Martinez MD Routine, Hbo - Discharge Disposition: Discharged to home or self care 01/11/2024 Travel 01/07/2024 10:06 AM CDT - 01/07/2024 11:59 PM CDT Hospital Encounter [facility] [address] [place] [address] Maggy Horan MD Routine, Hbo - Discharge Disposition: Discharged to home or self care 01/07/2024 Travel 01/06/2024 9:50 AM CDT - 01/06/2024 11:59 PM CDT Hospital Encounter [facility] [address] [place] [address] David Cortes MD Routine, Hbo - Discharge Disposition: Discharged to home or self care 01/06/2024 9:40 AM CDT - 01/06/2024 11:59 PM CDT Hospital Encounter [facility] [address] [place] [address] David Cortes MD Discharge Disposition: Discharged to home or self care 01/06/2024 Travel 01/05/2024 9:32 AM CDT - 01/05/2024 11:59 PM CDT Hospital Encounter [facility] [address] [place] [address] David Cortes MD Routine, Hbo - Discharge Disposition: Discharged to home or self care 01/05/2024 Orders Only [facility] [address] [place] [address] Talita Patel MD 01/05/2024 Travel 01/04/2024 10:16 AM CDT - 01/04/2024 11:59 PM CDT Hospital Encounter [facility] [address] [place] [address] Douglas Morris II, MD Routine, Hbo - Discharge Disposition: Discharged to home or self care 01/04/2024 Travel 01/03/2024 9:33 AM CDT - 01/03/2024 11:59 PM CDT Hospital Encounter [facility] [address] [place] [address] Narcisa Sanford MD Routine, Hbo - Discharge Disposition: Discharged to home or self care 01/03/2024 Travel 12/31/2023 1:00 PM CDT [facility] [address] [address] Afshan Sims DPM S/P foot surgery, right (Primary Dx) Discharge Disposition: Discharged to home or self care 12/31/2023 9:51 AM CDT - 12/31/2023 11:59 PM CDT Hospital Encounter [facility] [address] [address] Douglas Morris II, MD Routine, Hbo - Discharge Disposition: Discharged to home or self care 12/31/2023 Travel 12/30/2023 9:49 AM CDT - 12/30/2023 11:59 PM CDT Hospital Encounter [facility] [address] [address] David Cortes MD Routine, Hbo - Discharge Disposition: Discharged to home or self care 12/30/2023 Travel 12/29/2023 9:38 AM CDT - 12/29/2023 11:59 PM CDT Hospital Encounter [facility] [address] [address] Nikolai Martinez MD Routine, Hbo - Discharge Disposition: Discharged to home or self care 12/29/2023 Travel 12/28/2023 Telephone [facility] [address] [address] Dayanna Rodriguez RN Care Coordination (Called to discuss outpatient HBOT schedule) 12/27/2023 9:00 AM CDT Nurse Only [facility] [address] [place] [address] Afshan Sims, DPM Discharge Disposition: Discharged to home or self care 12/27/2023 Travel 12/24/2023 10:00 AM CDT [facility] [address] [place] [address] 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, CRYSTAL ATTACHER, FLOOR TILING PROFESSIONAL 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); Soft tissue infection Discharge Disposition: Discharged to home or self care 12/24/2023 Travel 12/23/2023 9:33 AM CDT - 12/23/2023 11:59 PM CDT Hospital Encounter [facility] [address] [address] Nikolai Martinez MD Routine, Hbo - Discharge Disposition: Discharged to home or self care 12/23/2023 Travel 12/22/2023 9:43 AM CDT - 12/22/2023 11:59 PM CDT Hospital Encounter [facility] [address] [place] [address] Narcisa Sanford MD Routine, Hbo - Discharge Disposition: Discharged to home or self care 12/22/2023 Travel 12/20/2023 9:34 AM CDT - 12/20/2023 11:59 PM CDT Hospital Encounter [facility] [address] [place] [address] Shawn Vines MD Routine, Hbo - Discharge Disposition: Discharged to home or self care 12/20/2023 Travel 12/17/2023 1:45 PM CDT Office [facility] [address] [address] Afshan Sims DPM S/P foot surgery, right (Primary Dx) Discharge Disposition: Discharged to home or self care 12/17/2023 Travel 12/14/2023 Telephone [facility] Medicine [address] [place] [address] Aretha Damon MD Follow-up 12/07/2023 3:48 PM CDT - 12/14/2023 12:38 PM CDT Hospital Encounter [facility] [address] [place] [address] Eusebio Vivar MD Rajagopal, Shrikar S, MD Oeding, Michelle L, Igor Cosby MD Lawson, Michael J, MD Other acute osteomyelitis of left foot ([facility]) Discharge Disposition: Discharged/transd to home (care by home health service organization) from Last 3 Months Immunizations Name Administration Dates Next Due Diphtheria and Tetanus Toxoi d - Adult (Grifols Td) 08/28/2002 Influenza Vaccine 6 Months t hrough Adult - Prefilled 02/22/2023,02/23/2022,04/19/2019 Pneumococcal Conjugate, 20-V alent Vaccine (Prevnar 20) 07/23/2022 Pneumococcal Polysaccharide, 23 Valent Vaccine(Pneumovax 23) 04/19/2019 Tetanus Toxoid, Reduced Diph theroid Toxoid Acellular Pertussis 07/17/2005 Tetanus and Diphtheria Toxoi ds Adsorbed-Td ([facility]) 07/23/2022 Social History Tobacco Use Types Packs/Day [...] Screening 07/26/2028 07/27/2023, 02/07, 11/03/2018 Imm: DTaP/Tdap (3 - Td or Tdap) 07/23/2032 07/23/2022, 07/17/2005, [...] POC GLUCOSE Routine 12/12/2023 6:42 AM CDT PC LAB GLYCOSYLATED HGB Routine 12/08/2023 4:47 PM CDT PC HIV-1 AG W/HIV-1 & HIV-2 AB Timed 11/15/2023 7:39 AM CDT from Last 3 Months or Most Recently Relevant to Health Maintenance Results * (ABNORMAL) POC GLUCOSE (01/19/2024 12:22 PM CDT) Only the most recent of29 resultswithin the time period is included. POC Glucose 323(H) 70 - 100 mg/dL [facility] Blood 01/19/2024 12:2 2 PM CDT Nikolai Martinez MD LABORATORY [facility] [address] [place] [address], * HBO ANGIOGRAPHY EXTREMITY UNILATERAL (01/06/2024 9:40 AM CDT) Only the most recent of2 [...] (12/13/2023 5:24 PM CDT) Vancomycin 17.0 mcg/mL [facility] Comment:Expected Range (Trou gh): 10-20 mcg/ml Blood 12/13/2023 5:24 PM CDT 12/13/2023 5:46 PM CDT Narrative [facility] - 12/13/2023 6:34 PM CDT Please ensure trough level drawn prior to next vancomycin dose. Thank you Peak or trough:->Trough Eusebio Perez PharmD LABORATORY [facility] [address] [place] [address] * (ABNORMAL) GLYCOSYLATED HGB - A1C (12/08/2023 4:47 PM CDT) Hemoglobin A1C 8.5(H) 4.0 - 5.6 % [facility] Comment: Increased risk for diabetes (prediabetes): 5.7-6.4% Diabetes >=6.5% In the absence of unequivocal hyperglycemia, diagnosis requires two abnormal test results (i.e. HbA1c and glucose) or two abnormal results from specimens collected at two different timepoints. The presence of some hemoglobin variants or red cell disorders may interfere with the measurement of hemoglobin A1c (HbA1c). Estimated Average Glucose 197(H) 68 - 114 [facility] Comment: The estimated Average Glucose (eAG) was calculated using an equation derived from a study of 507 adults with type 1, type 2, or no diabetes. Minority populations were underrepresented and children were not included. The eAG is not equivalent to a fasting glucose concentration. Blood 12/08/2023 4:47 PM CDT 12/08/2023 5:07 PM CDT Narrative [facility] - 12/08/2023 6:01 PM CDT If not done in the last 30 days. Afshan Shafer PA-C LABORATORY [facility] [address] [address] * HIV COMBO (11/15/2023 7:39 AM CDT) HIV Antigen-Antibody Nonreactive Nonreactive [facility] Comment:Performance characte ristics have not been established with this test on patients less than 2 years of age. Blood 11/15/2023 7:39 AM CDT 11/15/2023 7:58 AM CDT Zac Jackson MD LABORATORY [facility] [address] [address] from Last 3 Months or Most Recently Relevant to Health Maintenance Additional Health Concerns Infection Onset Date Last Indicated MRSA 11/17/2023 12/08/2023 Advance Directives For more information, please contact: [phone] * Full Code (Latest Code Status on [...]
--- OUTSIDE RECORDS SUMMARY | 2024-03-13 08:57 | XMS_ITS | Encounter Summary ---
Author Organization [facility] Address [address] [place] [address] Phone Care Team Providers Care Mash Processing Operator Name Role Phone Unavailable Primary Care Provider Unavailabl e Reason for Visit * Reason Comments Follow-up Encounter Details Date Type Department Care Team (Late st Contact Info) Description 01/20/2024 1:30 PM CDT Office Visit [facility] [address] [address] Afshan Sims, DPMorelia [address] [phone] S/P foot surgery, right (Primary Dx); 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[facility]) Discharge Disposition: Discharged to home or self [...] Schizophrenia History of TBI --Patient is own [facility] Clinic plan: -Discussed postoperative course [...] restrictions from our standpoint for the patient -IA paperwork completed and returned to patient Return [...] He is hoping he can move his snf. He has no other question or concerns [...] S/P foot surgery, right- Primary 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[facility]) documented in this encounter Additional Health Concerns Infection Onset Date Last Indicated Resolved Time 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
--- OUTSIDE RECORDS SUMMARY | 2024-03-13 08:57 | XMS_ITS | Encounter Summary ---
Author Organization [facility] Address [address] [place] [address] Phone Care Team Providers Care Antenna Design Engineer Name Role Phone Unavailable Primary Care [...]
--- OUTSIDE RECORDS SUMMARY | 2024-03-13 08:57 | XMS_ITS | Encounter Summary ---
Author Organization [facility] Address [address] [place] [address] Phone Care Team Providers Care Medical Insurance Coder Name Role Phone Unavailable Primary Care Provider Unavailabl e Encounter Details Date Type Department Care Team (Late st Contact Info) Description 01/12/2024 9:53 AM CDT - 01/12/2024 11:59 PM CDT Hospital Encounter [facility] [address] [facility] [address] [place], [place] [phone] SophiaDavid ward MD [address] [facility] [address] [place], [place] [phone] Routine, Hbo - [id number] Discharge Disposition: Discharged to home or self [...] hesitate to call the [facility] Department at [phone] during clinic hours or page quality assurance monitor chassis staff with any updates, questions, or concerns. 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
--- OUTSIDE RECORDS SUMMARY | 2024-03-13 08:57 | XMS_ITS | Encounter Summary ---
Author Organization [facility] Address [address] [place] [address] Phone Care Team Providers Care Quiller Tender Name Role Phone Unavailable Primary Care Provider [...]
--- OUTSIDE RECORDS SUMMARY | 2024-03-13 08:57 | XMS_ITS | Referral Summary ---
Author Organization [employer] Address [address] [place] [address] Phone Care Team Providers Care Diesel Truck Mechanic Name Role Phone Unavailable Primary Care Provider Unavailabl e Source Comments [employer] [facility] 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[facility]) Discharge Disposition: Discharged to home or self care 01/19/2024 Travel 01/19/2024 10:30 AM CDT - 01/19/2024 11:59 PM CDT Hospital Encounter [facility] [place] [address] [place] [address] Nikolai Martinez MD Routine, Hbo - Discharge Disposition: Discharged to home or self care 01/18/2024 Travel 01/18/2024 10:06 AM CDT - 01/18/2024 11:59 PM CDT Hospital Encounter [facility] [place] [address] [place] [address] David Cortes MD Routine, Hbo - Discharge Disposition: Discharged to home or self care 01/17/2024 Travel 01/17/2024 9:42 AM CDT - 01/17/2024 11:59 PM CDT Hospital Encounter [facility] [place] [address] [place] [address] Douglas Morris II, MD Routine, Hbo - Discharge Disposition: Discharged to home or self care 01/12/2024 Travel 01/12/2024 9:53 AM CDT - 01/12/2024 11:59 PM CDT Hospital Encounter [facility] [address] [place] [address] David Cortes MD Routine, Hbo - Discharge Disposition: Discharged to home or self care 01/11/2024 Travel 01/11/2024 10:01 AM CDT - 01/11/2024 11:59 PM CDT Hospital Encounter [facility] [address] [place] [address] Nikolai Martinez MD Routine, Hbo - Discharge Disposition: Discharged to home or self care 01/07/2024 Travel 01/07/2024 10:06 AM CDT - 01/07/2024 11:59 PM CDT Hospital Encounter [facility] [address] [place] [address] Maggy Horan MD Routine, Hbo - Discharge Disposition: Discharged to home or self care 01/06/2024 Travel 01/06/2024 9:40 AM CDT - 01/06/2024 11:59 PM CDT Hospital Encounter [facility] [address] [place] [address] David Cortes MD Discharge Disposition: Discharged to home or self care 01/06/2024 9:50 AM CDT - 01/06/2024 11:59 PM CDT Hospital Encounter [facility] [address] [place] [address] David Cortes MD Routine, Hbo - Discharge Disposition: Discharged to home or self care 01/05/2024 Orders Only [facility] [address] [place] [address] Talita Patel MD 01/05/2024 Travel 01/05/2024 9:32 AM CDT - 01/05/2024 11:59 PM CDT Hospital Encounter [facility] [address] [place] [address] David Cortes MD Routine, Hbo - Discharge Disposition: Discharged to home or self care 01/04/2024 Travel 01/04/2024 10:16 AM CDT - 01/04/2024 11:59 PM CDT Hospital Encounter [facility] [address] [address] Douglas Morris II, MD Routine, Hbo - Discharge Disposition: Discharged to home or self care 01/03/2024 Travel 01/03/2024 9:33 AM CDT - 01/03/2024 11:59 PM CDT Hospital Encounter [facility] [address] [place] [address] Narcisa [place] MD Routine, Hbo - Discharge Disposition: Discharged to home or self care 12/31/2023 Travel 12/31/2023 9:51 AM CDT - 12/31/2023 11:59 PM CDT Hospital Encounter [facility] [address] [place] [address] Douglas Morris II, MD Routine, Hbo - Discharge Disposition: Discharged to home or self care 12/31/2023 1:00 PM CDT [facility] [address] [address] Afshan Sims DPM S/P foot surgery, right (Primary Dx) Discharge Disposition: Discharged to home or self care 12/30/2023 Travel 12/30/2023 9:49 AM CDT - 12/30/2023 11:59 PM CDT Hospital Encounter [facility] [address] [place] [address] David Cortes MD Routine, Hbo - Discharge Disposition: Discharged to home or self care 12/29/2023 Travel 12/29/2023 9:38 AM CDT - 12/29/2023 11:59 PM CDT Hospital Encounter [facility] [address] [place] [address] Nikolai Martinez MD Routine, Hbo - Discharge Disposition: Discharged to home or self care 12/28/2023 Telephone [facility] [address] [place] [address] Dayanna Rodriguez RN Care Coordination (Called to discuss outpatient HBOT schedule) 12/27/2023 Travel 12/27/2023 9:00 AM CDT Nurse Only [facility] [address] [place] [address] Afshan Sims DPM Discharge Disposition: Discharged to home or self care 12/24/2023 Travel 12/24/2023 10:00 AM CDT Office [facility] [address] [place] [address] 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, BASS MECHANISM MAKER, ADMIN ASSISTANT 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); Soft tissue infection Discharge Disposition: Discharged to home or self care 12/23/2023 Travel 12/23/2023 9:33 AM CDT - 12/23/2023 11:59 PM CDT Hospital Encounter [facility] [address] [place] [address] Nikolai Martinez MD Routine, Hbo - Discharge Disposition: Discharged to home or self care 12/22/2023 Travel 12/22/2023 9:43 AM CDT - 12/22/2023 11:59 PM CDT Hospital Encounter [facility] [address] [place] [address] Narcisa [place] MD Routine, Hbo - Discharge Disposition: Discharged to home or self care 12/20/2023 Travel 12/20/2023 9:34 AM CDT - 12/20/2023 11:59 PM CDT Hospital Encounter [facility] [address] [place] [address] Shawn Vines MD Routine, Hbo - Discharge Disposition: Discharged to home or self care 12/17/2023 Travel 12/17/2023 1:45 PM CDT [facility] [address] [address] Afshan Sims DPMorelia S/P foot surgery, right (Primary Dx) Discharge Disposition: Discharged to home or self care 12/14/2023 Telephone [facility] Medicine [address] [place] [address] Aretha Damon MD Follow-up 12/07/2023 3:48 PM CDT - 12/14/2023 12:38 PM CDT Hospital Encounter [facility] Orthopaedic [address] [place] [address] Eusebio Vivar MD Rajagopal, Shrikar S, MD Oeding, Afshan Torres, Igor Cosby MD Lawson, Clint Gomez MD Other acute osteomyelitis of left foot ([facility]) Discharge Disposition: Discharged/transd to home (care by home health service organization) from Last 3 Months Allergies No known [...] 12/10/2023 Other acute osteomyelitis of left foot ([facility]) 12/07/2023 At risk for sexually transmi tted infection due to unprotected sex 11/12/2023 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[facility]) 11/10/2023 Resolved Problems Problem Noted [...] 07/17/2005 Tetanus and Diphtheria Toxoi ds Adsorbed-Td ([facility]) 07/23/2022 Social History Tobacco Use Types Packs/Day [...] POC Glucose 323(H) 70 - 100 mg/dL [facility] - [facility] CARE Blood 01/19/2024 12:2 2 PM CDT Nikolai Martinez MD LABORATORY [facility]INT [facility] CARE [address] [place] [address], * HBO ANGIOGRAPHY EXTREMITY UNILATERAL (01/06/2024 9:40 [...] [facility] [address] [place] [address] * (ABNORMAL) GLYCOSYLATED HGB - A1C (12/08/2023 [...] [facility] [address] [address] * HIV COMBO (11/15/2023 7:39 AM CDT) HIV Antigen-Antibody Nonreactive Nonreactive [facility] Comment:Performance characte ristics have not been established with this test on patients less than 2 years of age. Blood 11/15/2023 7:39 AM CDT 11/15/2023 7:58 AM CDT Zac Jackson MD LABORATORY [facility] [address] [address] from Last 3 Months or Most Recently Relevant to Health Maintenance Additional Health Concerns Infection Onset Date Last Indicated MRSA 11/17/2023 12/08/2023 Advance Directives For more information, please contact: [phone] * Full Code (Latest Code Status on [...]
--- OUTSIDE RECORDS SUMMARY | 2024-03-13 08:57 | XMS_ITS | Encounter Summary ---
Author Organization [facility] Address [address] [place] [address] Phone Care Team Providers Care Personal Financial Representative Name Role Phone Unavailable Primary Care [...]
--- OUTSIDE RECORDS SUMMARY | 2024-03-13 08:57 | XMS_ITS | Encounter Summary ---
Author Organization [facility] Address [address] [place] [address] Phone Care Team Providers Care Advisory Software Engineer Name Role Phone Unavailable Primary Care [...]
--- OUTSIDE RECORDS SUMMARY | 2024-03-13 08:57 | XMS_ITS | Encounter Summary ---
Author Organization [facility] Address [address] [place] [address] Phone Care Team Providers Care Conduit Bender Name Role Phone Unavailable Primary Care Provider [...]
--- OUTSIDE RECORDS SUMMARY | 2024-03-13 08:57 | XMS_ITS | Encounter Summary ---
Author Organization [facility] Address [address] [place] [address] Phone Care Team Providers Care Tool Liaison Name Role Phone Unavailable Primary Care Provider Unavailabl e Encounter Details Date Type Department Care Team (Late st Contact Info) Description 01/18/2024 10:06 AM CDT - 01/18/2024 11:59 PM CDT Hospital Encounter [facility] Hyperbaric [address] [facility] [address] [place], [place] [address] SophiaDavid ward MD 701 [facility] [address] [place], [place] [address] Routine, Hbo - [id number] Discharge Disposition: Discharged to home or self [...] hesitate to call the Hyperbaric Department at [phone] during clinic hours or page elderly companion staff with any updates, questions, or concerns. [...]
--- OUTSIDE RECORDS SUMMARY | 2024-03-13 08:57 | XMS_ITS | Encounter Summary ---
Author Organization [facility] Address [address] [place] [address] Phone Care Team Providers Care Composite Technician Name Role Phone Unavailable Primary Care [...]
--- OUTSIDE RECORDS SUMMARY | 2024-03-13 08:57 | XMS_ITS | Encounter Summary ---
Author Organization [facility] Address [address] [facility] [place] [address] Phone Care Team Providers Care Shoe Repairman Name Role Phone Unavailable Primary Care Provider Unavailabl e Encounter Details Date Type Department Care Team (Latest Contact Info) Description 01/11/2024 10:01 AM CDT - 01/11/2024 11:59 PM CDT Hospital Encounter [facility]baric [address] [place] [address] Nikolai Martinez MD [address] [facility] [address] [place], [place] [address] Ryvivxt, Oom - [phone] Discharge Disposition: Discharged to home or self [...] hesitate to call the Hyperbaric Department at [phone] during clinic hours or page cone examiner staff with any updates, questions, or concerns. Mayuri Hinojosa APRN, ALLIGATOR SHEAR OPERATOR, 01/11/2024 12:21 PM Continuous attending physician supervision was provided throughout the hyperbaric oxygen treatment. I have reviewed and agree with the treatment note created by Nurse Practitioner: Mayuri Hinojosa APRN, SEMICONDUCTOR LAB TECHNICIAN. documented in this encounter Plan of Treatment Not on file documented as of this encounter Procedures Procedure Name Priority Date/Time Associated Diagnosis Comments POC GLUCOSE Routine 01/11/2024 10:00 AM CDT documented in this encounter Results * (ABNORMAL) POC GLUCOSE (01/11/2024 10:00 AM CDT) POC Glucose 362(H) 70 - 100 mg/dL [facility] Blood 01/11/2024 10:0 0 AM CDT Nikolai Martinez MD LABORATORY [facility]ARE [address] [place] [address], documented in this encounter Visit Diagnoses Diagnosis Soft tissue infection- Primary Unspecified infectious and parasitic diseases Other acute osteomyelitis of left foot (CMS/HHS) documented in this encounter Additional Health Concerns Infection Onset Date Last Indicated Resolved Time 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
--- OUTSIDE RECORDS SUMMARY | 2024-03-13 08:57 | XMS_ITS | Encounter Summary ---
Author Organization [facility] Address [address] [place] [address] Phone Care Team Providers Care Economics Instructor Name Role Phone Unavailable Primary Care [...]
--- OUTSIDE RECORDS SUMMARY | 2024-03-13 08:57 | XMS_ITS | Encounter Summary ---
Author Organization [facility] Address [address] [place] [address] Phone Care Team Providers Care Humanities Coordinator Name Role Phone Unavailable Primary Care Provider Unavailabl e Encounter Details Date Type Department Care Team (Late st Contact Info) Description 01/20/2024 9:54 AM CDT - 01/20/2024 11:59 PM CDT Hospital En[place] [facility] [place] [address] [facility] [address] [place], [place] [address] SophiaDavid ward MD [address] [facility] [address] [place], [place] [address] Routine, Hbo - [id number] Discharge Disposition: Discharged to home or self [...] hesitate to call the Hyperbaric Department at [phone] during clinic hours or page environmental field professional staff with any updates, questions, or concerns. Associated attestation - David Cortes MD - 01/20/2024 2:49 PM CDT Continuous attending physician supervision was provided throughout the hyperbaric oxygen treatment.I have reviewed and agree with treatment note created by the Hyperbaric Medicine Fellow, Dr. Mcconnell. David Cortes MD, 01/20/2024 2:49 PM * David Cortes MD - 01/20/2024 10:30 AM CDT [facility]PER[facility] MEDICINE TREATMENT SUMMARY Consulting physician: Dr. [...] urged continued close follow up with his Casino Beverage Server for local wound care and monitoring. We noted our availability should future concern of complicated wound develop or as needed surrounding and in support of surgical interventions. Please do not hesitate to call the Hyperbaric Department at [phone] during clinic hours or page environmental field professional staff with any updates, questions, or concerns. Kit Mcconnell MD Hyperbaric Medicine Fellow I reviewed, edited and agree with the treatment summary. David Cortes MD, 01/20/2024 2:51 PM documented in this encounter Plan of Treatment Not on file documented as of this encounter Visit Diagnoses Diagnosis Soft tissue infection- Primary Unspecified infectious and parasitic diseases Other acute osteomyelitis of left foot ([facility]) documented in this encounter Additional Health Concerns Infection Onset Date Last Indicated Resolved Time 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
--- OUTSIDE RECORDS SUMMARY | 2024-03-13 08:57 | XMS_ITS | Encounter Summary ---
Author Organization [facility] Address [address] [place] [address] Phone Care Team Providers Care Chair Lift Operator Name Role Phone Unavailable Primary Care Provider Unavailabl e Encounter Details Date Type Department Care Team (Latest Contact Info) Description 01/17/2024 9:42 AM CDT - 01/17/2024 11:59 PM CDT Hospital En[place] [facility] 701 [facility] [address] [place] [address] Masters, Douglas Osuna II, MD 701 [facility] [address] [place], [place] [address] Routine, Pma - [phone] Discharge Disposition: Discharged to home or self [...] multiple numbers for his convenience locally in [place] for evaluation. HPI, problem list, nursing notes, [...] hesitate to call the Hyperbaric Department at [phone] during clinic hours or page clinical documentation specialist staff with any updates, questions, [...] POC Glucose 288(H) 70 - 100 mg/dL [facility] - POINT OF CARE Blood 01/17/2024 12:1 9 PM CDT Douglas Morris II, MD LABORATORY [facility] POINT [facility] CARE [address] [place] [address], * (ABNORMAL) POC GLUCOSE (01/17/2024 9:59 AM CDT) POC Glucose 323(H) 70 - 100 mg/dL [facility] - POINT OF CARE Blood 01/17/2024 9:59 AM CDT Narrative Authorizing Provider Result Kiki Morris II, MD LABORATORY Performing Organization Address City/State/[facility] Co de Phone Number [facility] POINT OF CARE [address] [place] [address], documented in this encounter Visit Diagnoses Diagnosis Soft tissue infection- Primary Unspecified infectious and parasitic diseases Other acute osteomyelitis of left foot ([facility]) documented in this encounter Administered [...]
--- OUTSIDE RECORDS SUMMARY | 2024-03-13 08:57 | XMS_ITS | Encounter Summary ---
Author Organization [facility] Address [address] [facility] [address] Phone Care Team Providers Care Plastic Cablemaking Machine Operator Name Role Phone Unavailable Primary Care Provider Unavailabl e Encounter Details Date Type Department Care Team (Latest Contact Info) Description 01/07/2024 10:06 AM CDT - 01/07/2024 11:59 PM CDT Hospital Encounter [facility] Hyperbaric [address] [place] [address] Maggy Horan MD [address] [place], [place] [address] [facility] - [address] Discharge Disposition: Discharged to home or self [...] hesitate to call the Hyperbaric Department at [phone] during clinic hours or page second officer staff with any updates, questions, or [...] POC Glucose 344(H) 70 - 100 mg/dL [facility] - POINT OF CARE Blood 01/07/2024 12:2 7 PM CDT Maggy Horan MD LABORATORY Performing Organization Address [facility] Co de Phone Number [facility] POINT OF CARE [address] [place], [place] [phone], * (ABNORMAL) POC GLUCOSE (01/07/2024 10:20 AM CDT) POC Glucose 357(H) 70 - 100 mg/dL [facility] - POINT OF CARE Blood 01/07/2024 10:2 0 AM CDT Maggy Horan MD LABORATORY Performing Organization Address City/[facility] Co de Phone Number [facility] POINT OF CARE [address] [place] [phone], documented in this encounter Visit Diagnoses Diagnosis Soft tissue infection- Primary Unspecified infectious and parasitic diseases Other acute osteomyelitis of left foot ([facility]) documented in this encounter Additional Health Concerns Infection Onset Date Last Indicated Resolved Time 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
--- OUTSIDE RECORDS SUMMARY | 2024-03-13 08:57 | XMS_ITS | Encounter Summary ---
Author Organization [facility] Address [address] [facility] [place] [address] Phone Care Team Providers Care Senior Business Process Analyst Name Role Phone Unavailable Primary Care Provider Unavailabl e Encounter Details Date Type Department Care Team (Latest Contact Info) Description 01/19/2024 10:30 AM CDT - 01/19/2024 11:59 PM CDT Hospital Encounter [facility] Hyperbaric [address] [place] [address] Nikolai Martinez MD 701 [facility] [place], [place] [address] Ididsqp, Fxi - [phone] Discharge Disposition: Discharged to home or self [...] hesitate to call the Hyperbaric Department at [phone] during clinic hours or page managed services consultant staff with any updates, questions, [...] POC GLUCOSE (01/19/2024 12:22 PM CDT) Pathologist [facility] POC Glucose 323(H) 70 - 100 mg/dL [facility] - POINT OF CARE Blood 01/19/2024 12:2 2 PM CDT Nikolai Martinez MD LABORATORY Performing Organization Address City/State/[facility] Co de Phone Number [facility] - POINT OF CARE [address] [place] [address], * (ABNORMAL) POC GLUCOSE (01/19/2024 9:58 AM CDT) POC Glucose 353(H) 70 - 100 mg/dL [facility] - POINT OF CARE Blood 01/19/2024 9:58 AM CDT Provider Unknown LABORATORY [facility] - POINT OF CARE [address] [place] [address], documented in this encounter Visit Diagnoses Diagnosis Soft tissue infection- Primary Unspecified infectious and parasitic diseases Other acute osteomyelitis of left foot (CMS/HHS) documented in this encounter Additional Health Concerns Infection Onset Date Last Indicated Resolved Time 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
--- OUTSIDE RECORDS SUMMARY | 2024-03-13 08:57 | XMS_ITS | Encounter Summary ---
Author Organization [facility] Address [address] [place] [address] Phone Care Team Providers Care Plant Floor Automation Manager Name Role Phone Unavailable Primary Care [...]
--- OUTSIDE RECORDS SUMMARY | 2024-03-13 08:58 | XMS_ITS | Encounter Summary ---
Author Organization [facility] Address [address] [place] [address] Phone Care Team Providers Care Qa Reviewer Name Role Phone Unavailable Primary Care Provider Unavailabl e Encounter Details Date Type Department Care Team (Late st Contact Info) Description 01/06/2024 9:40 AM CDT - 01/06/2024 11:59 PM CDT Hospital Encounter [facility] [place]baric [address] [place], [place] [phone] David Cortes MD 701 [facility] [address] [place], [place] [phone] Discharge Disposition: Discharged to home or self [...]
--- OUTSIDE RECORDS SUMMARY | 2024-03-13 08:58 | XMS_ITS | Encounter Summary ---
Author Organization [facility] Address [address] [place] [address] Phone Care Team Providers Care Rigger Apprentice Name Role Phone Unavailable Primary Care Provider Unavailabl e Encounter Details Date Type Department Care Team (Late st Contact Info) Description 01/06/2024 9:50 AM CDT - 01/06/2024 11:59 PM CDT Hospital Encounter [facility] Hyperbaric [address] [facility] 9[address] [place], [place] [address] SophiaDavid ward MD 701 [facility] 825 [place], [place] [phone] Routine, Hbo - [id number] Discharge Disposition: Discharged to home or self [...] hesitate to call the Hyperbaric Department at [phone] during clinic hours or page preparation supervisor freezing staff with any updates, questions, or concerns. [...] POC Glucose 308(H) 70 - 100 mg/dL [facility] - POINT OF CARE Blood 01/06/2024 9:52 AM CDT David Cortes MD LABORATORY [facility] - POINT OF CARE [address] [place] [address], documented in this encounter Visit Diagnoses Diagnosis Soft tissue infection- Primary Unspecified infectious and parasitic diseases Other acute osteomyelitis of left foot (CMS/HHS) documented in this encounter Additional Health Concerns Infection Onset Date Last Indicated Resolved Time 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
--- OUTSIDE RECORDS SUMMARY | 2024-03-13 08:58 | XMS_ITS | Encounter Summary ---
Author Organization [facility] Address [address] [place] [address] Phone Care Team Providers Care Service Specialist Name Role Phone Unavailable Primary Care [...]
--- OUTSIDE RECORDS SUMMARY | 2024-03-13 08:58 | XMS_ITS | Encounter Summary ---
Author Organization [facility] Address [address] [place] [address] Phone Care Team Providers Care Proof Carrier Name Role Phone Unavailable Primary Care Provider [...]
--- OUTSIDE RECORDS SUMMARY | 2024-03-13 08:58 | XMS_ITS | Encounter Summary ---
Author Organization [facility] Address [address] [place] [address] Phone Care Team Providers Care Fingernail Sculptor Name Role Phone Unavailable Primary Care Provider Unavailabl e Encounter Details Date Type Department Care Team (Late st Contact Info) Description 12/30/2023 9:49 AM CDT - 12/30/2023 11:59 PM CDT Hospital Encounter [facility] Hyperbaric [address] [facility] 9[address] [place], [place] [address] SophiaDavid ward MD 701 [facility] 825 [place], [place] [address] Routine, Hbo - [id number] Discharge Disposition: Discharged to home or self [...] hesitate to call the Hyperbaric Department at [phone] during clinic hours or page literacy consultant staff with any updates, questions, or [...] POC Glucose 352(H) 70 - 100 mg/dL [facility] - POINT OF CARE Blood 12/30/2023 9:54 AM CDT David Cortes MD LABORATORY [facility] - POINT OF CARE [address] [place] [address], documented in this encounter Visit Diagnoses Diagnosis Soft tissue infection- Primary Unspecified infectious and parasitic diseases Other acute osteomyelitis of left foot ([facility]/HHS) documented in this encounter Administered Medications [...]
--- OUTSIDE RECORDS SUMMARY | 2024-03-13 08:58 | XMS_ITS | Encounter Summary ---
Author Organization [facility] Address [address] [place] [address] Phone Care Team Providers Care Vice President Sales Name Role Phone Unavailable Primary Care Provider [...]
--- OUTSIDE RECORDS SUMMARY | 2024-03-13 08:58 | XMS_ITS | Encounter Summary ---
Author Organization [facility] Address [address] [place] [address] Phone Care Team Providers Care Overhead Cleaner Name Role Phone Unavailable Primary Care Provider Unavailabl e Reason for Visit * Reason Comments Wound Encounter Details Date Type Department Care Team (Late st Contact Info) Description 12/27/2023 9:00 AM CDT Nurse Only [facility] [address] [address] Afshan Sims, DPMorelia [address] [phone] Discharge Disposition: Discharged to home or self [...] on Original Admission: Yes Location:Groin Site Assessment Granular;[place] Rain-Wound Assessment Intact Tunneling or undermining present? [...]
--- OUTSIDE RECORDS SUMMARY | 2024-03-13 08:58 | XMS_ITS | Encounter Summary ---
Author Organization [facility] Address [address] [facility] [place] [address] Phone Care Team Providers Care Bleach Packer Name Role Phone Unavailable Primary Care Provider Unavailabl e Encounter Details Date Type Department Care Team (Latest Contact Info) Description 12/29/2023 9:38 AM CDT - 12/29/2023 11:59 PM CDT Hospital Encounter [facility] [place]baric [address] [place] [address] Nikolai Martinez MD 701 [facility] [place], [place] [address] Wihxhmg, Ihh - [id number] Discharge Disposition: Discharged to home or self [...] hesitate to call the Hyperbaric Department at [phone] during clinic hours or page workers compensation claims specialist staff with any updates, questions, or [...] POC Glucose 323(H) 70 - 100 mg/dL [facility] - POINT OF CARE Blood 12/29/2023 10:0 7 AM CDT Nikolai Martinez MD LABORATORY [facility] - POINT OF CARE [address] [place] [address], documented in this encounter Visit Diagnoses Diagnosis [...]
--- OUTSIDE RECORDS SUMMARY | 2024-03-13 08:58 | XMS_ITS | Encounter Summary ---
Author Organization [facility] Address 1 [facility] [place] [address] Phone Care Team Providers Care Mobile Application Tester Name Role Phone Unavailable Primary Care Provider Unavailabl e Encounter Details Date Type Department Care Team (Latest Contact Info) Description 01/03/2024 9:33 AM CDT - 01/03/2024 11:59 PM CDT Hospital Encounter [facility] Hyperbaric [address] [facility] 980 [place] [address] Narcisa Sanford MD 701 [place], [place] [address] [facility], Ugg - [phone] Discharge Disposition: Discharged to home or self [...] hesitate to call the Hyperbaric Department at [phone] during clinic hours or page sharepoint application architect staff with any updates, questions, or [...] POC Glucose 305(H) 70 - 100 mg/dL [facility] - POINT OF CARE Blood 01/03/2024 9:50 AM CDT Narcisa Sanford MD LABORATORY [facility] - POINT OF CARE [address] [place] [address], documented in this encounter Visit Diagnoses Diagnosis [...]
--- OUTSIDE RECORDS SUMMARY | 2024-03-13 08:58 | XMS_ITS | Encounter Summary ---
Author Organization [facility] Address [address] [place] [address] Phone Care Team Providers Care Precision Lathe Operator Name Role Phone Unavailable Primary Care [...]
--- OUTSIDE RECORDS SUMMARY | 2024-03-13 08:58 | XMS_ITS | Encounter Summary ---
Author Organization [facility] Address [address] [place] [address] Phone Care Team Providers Care Wellness Spa Manager Name Role Phone Unavailable Primary Care Provider Unavailabl e Encounter Details Date Type Department Care Team (Latest Contact Info) Description 01/04/2024 10:16 AM CDT - 01/04/2024 11:59 PM CDT Hospital Encounter [facility] 701 [facility] 980 [place] [address] Masters, Douglas Osuna II, MD 701 [facility] 825 [place], [place] [address] Routine, Soq - [id number] Discharge Disposition: Discharged to home or self [...] hesitate to call the Hyperbaric Department at [phone] during clinic hours or page adapted physical education aide staff with any updates, questions, or concerns. [...] POC Glucose 340(H) 70 - 100 mg/dL [facility] - POINT OF CARE Blood 01/04/2024 10:0 3 AM CDT Douglas Morris II, MD LABORATORY [facility] - POINT OF CARE [address] [place] [address], documented in this encounter Visit Diagnoses Diagnosis Soft tissue infection- Primary Unspecified infectious and parasitic diseases Other acute osteomyelitis of left foot ([facility]/HHS) documented in this encounter Additional Health Concerns Infection Onset Date Last Indicated Resolved Time 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
--- OUTSIDE RECORDS SUMMARY | 2024-03-13 08:58 | XMS_ITS | Encounter Summary ---
Author Organization [facility] Address [address] [place] [address] Phone Care Team Providers Care Tanning Wheel Filler Name Role Phone Unavailable Primary Care Provider Unavailabl e Encounter Details Date Type Department Care Team (Latest Contact Info) Description 12/31/2023 9:51 AM CDT - 12/31/2023 11:59 PM CDT Hospital Encounter [facility] Hyperbaric [address] [facility] 980 [place] [address] Masters, Douglas Osuna II, MD 701 [facility] 825 [place], [place] [address] Routine, Cvc - [id number] Discharge Disposition: Discharged to home or self [...] hesitate to call the Hyperbaric Department at [phone] during clinic hours or page contractor general building staff with any updates, questions, or concerns. [...] POC Glucose 295(H) 70 - 100 mg/dL [facility] - POINT OF CARE Blood 12/31/2023 9:57 AM CDT Douglas Morris II, MD LABORATORY [facility] - POINT OF CARE [address] [place] [address], documented in this encounter Visit Diagnoses Diagnosis Soft tissue infection- Primary Unspecified infectious and parasitic diseases Other acute osteomyelitis of left foot ([facility]/HHS) documented in this encounter Administered Medications Inactive [...]
--- OUTSIDE RECORDS SUMMARY | 2024-03-13 08:58 | XMS_ITS | Encounter Summary ---
Author Organization [facility] Address [address] [place] [address] Phone Care Team Providers Care Payroll Tax Analyst Name Role Phone Unavailable Primary Care Provider Unavailabl e Reason for Visit * Reason Comments Post Op Encounter Details Date Type Department Care Team (Late st Contact Info) Description 12/31/2023 1:00 PM CDT Office Visit [facility] [address] [address] Afshan Sims, DPMorelia [address] [address] S/P foot surgery, right (Primary Dx) Discharge [...] 3 weeks at the front end web developer - Please schedule an appointment with orthotics at the front end web developer for diabetic shoes and inserts - A [...] of TBI --Patient is own [facility] Clinic plan: -Discussed postoperative course and expectations [...] left until diabetic shoes and inserts arrive -DE paperwork completed and returned to patient Return [...]
--- OUTSIDE RECORDS SUMMARY | 2024-03-13 08:58 | XMS_ITS | Encounter Summary ---
Author Organization [facility] Address [address] [place] [address] Phone Care Team Providers Care Cad Detailer Name Role Phone Unavailable Primary Care Provider [...]
--- OUTSIDE RECORDS SUMMARY | 2024-03-13 08:58 | XMS_ITS | Encounter Summary ---
Author Organization [facility] Address [address] [place] [address] Phone Care Team Providers Care Novelty Chain Maker Name Role Phone Unavailable Primary Care Provider Unavailabl e Encounter Details Date Type Department Care Team (Late st Contact Info) Description 01/05/2024 9:32 AM CDT - 01/05/2024 11:59 PM CDT Hospital Encounter [facility] Hyperbaric [address] [facility] 980 [place], [place] [address] SophiaDavid ward MD 701 [facility] 825 [place], [place] [address] Routine, Hbo - [id number] Discharge Disposition: Discharged to home or self [...] hesitate to call the Hyperbaric Department at [phone] during clinic hours or page farm operations manager staff with any updates, questions, or [...] POC Glucose 328(H) 70 - 100 mg/dL [facility] - POINT OF CARE Blood 01/05/2024 9:54 AM CDT David Cortes MD LABORATORY [facility] - POINT OF CARE [address] [place] [address], documented in this encounter Visit Diagnoses Diagnosis Soft tissue infection- Primary Unspecified infectious and parasitic diseases Other acute osteomyelitis of left foot ([facility]) documented in this encounter Additional Health Concerns Infection Onset Date Last Indicated Resolved Time 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
--- OUTSIDE RECORDS SUMMARY | 2024-03-13 08:58 | XMS_ITS | Encounter Summary ---
Author Organization [facility] Address [address] [place] [address] Phone Care Team Providers Care Postal Transportation Clerk Name Role Phone Unavailable Primary Care [...]
--- OUTSIDE RECORDS SUMMARY | 2024-03-13 08:58 | XMS_ITS | Encounter Summary ---
Author Organization [facility] Address [address] [place] [address] Phone Care Team Providers Care Simulation Tech Name Role Phone Unavailable Primary Care [...]
--- OUTSIDE RECORDS SUMMARY | 2024-03-13 08:58 | XMS_ITS | Encounter Summary ---
Author Organization [facility] Address [address] [place] [address] Phone Care Team Providers Care Signal Helper Name Role Phone Unavailable Primary Care Provider Unavailabl e Reason for Visit * Reason Onset Date Comments Care Coordination 12/28/2023 Called to disc us outpatient HBOT schedule Encounter Details Date Type Department Care Team (Late st Contact Info) Description 12/28/2023 Telephone [facility] Hyperbaric [address] [address] Dayanna Rodriguez RN 701 [place] [address] Care Coordination (Called to discuss outpatient HBOT [...] schedule was printedand faxed to Vannesa at [phone]. She reported that she may need x 2 days to get transport set up. documented in this encounter Plan of Treatment Not on file documented as of this encounter Visit Diagnoses Not on filedocumented in this encounter Additional Health Concerns Infection Onset Date Last Indicated Resolved Time 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
--- OUTSIDE RECORDS SUMMARY | 2024-03-13 08:58 | XMS_ITS | Encounter Summary ---
Author Organization [facility] Address [address] [place] [address] Phone Care Team Providers Care Lead Caster Helper Name Role Phone Unavailable Primary Care Provider Unavailabl e Encounter Details Date Type Department Care Team (Late st Contact Info) Description 01/05/2024 Orders Only [facility] Hyperbaric [address] [place], [place] [address] Talita Patel MD 701 [place], [place] [phone] Social History Tobacco Use Types Packs/Day Years [...]
--- OUTSIDE RECORDS SUMMARY | 2024-03-13 08:59 | XMS_ITS | Encounter Summary ---
Author Organization [facility] Address [address] [place] [address] Phone Care Team Providers Care Microsoft Exchange Architect Name Role Phone Unavailable Primary Care [...]
--- OUTSIDE RECORDS SUMMARY | 2024-03-13 08:59 | XMS_ITS | Encounter Summary ---
Author Organization [facility] Address [address] [place] [address] Phone Care Team Providers Care Thermometer Maker Name Role Phone Unavailable Primary Care [...]
--- OUTSIDE RECORDS SUMMARY | 2024-03-13 08:59 | XMS_ITS | Encounter Summary ---
Author Organization [facility] Address [address] [place] [address] Phone Care Team Providers Care Cnc Programmer Name Role Phone Unavailable Primary Care Provider Unavailabl e Reason for Visit * Reason Onset Date Comments Follow-up 12/14/2023 Encounter Details Date Type Department Care Team (Late st Contact Info) Description 12/14/2023 Telephone [facility] Medicine 1 [address] [facility] R5.400 [place], [place] [address] Aretha Damon MD 701 [place], [place] [phone] Follow-up Social History Tobacco Use Types Packs/Day [...]
--- OUTSIDE RECORDS SUMMARY | 2024-03-13 08:59 | XMS_ITS | Encounter Summary ---
Author Organization [facility] Address [address] [place] [address] Phone Care Team Providers Care Sheet Metal Duct Worker Supervisor Name Role Phone Unavailable Primary Care [...] ATTN&SUPVJ HYPRBARIC OXYGEN TX/SESSION Routine, Hbo - [id number] Referral ID Status Reason Start Date Expiration Date V isits Requested Visits Authorized [id number] Auth Not Needed 12/20/2023 03/09/2024 30 30 Encounter Details Date Type Department Care Team (Latest Contact Info) Description 12/23/2023 9:33 AM CDT - 12/23/2023 11:59 PM CDT Hospital Encounter [facility] [place]baric [address] [address] Nikolai Martinez MD 701 [place], [place] [address] Routine, Hbo - [id number] Discharge Disposition: Discharged to home or self [...] AM CDT Hyperbaric Oxygen Treatment Note Stephanie Lwo Date: 12/23/2023 Treatment Indication(s): Non healing diabetic [...] hesitate to call the Hyperbaric Department at [phone] during clinic hours or page joint special operations staff with any updates, questions, or concerns. [...] POC Glucose 315(H) 70 - 100 mg/dL [facility] - POINT OF CARE Blood 12/23/2023 10:2 7 AM CDT Nikolai Martinez MD LABORATORY [facility] - POINT OF CARE [address] [place] [address], documented in this encounter Visit Diagnoses Diagnosis Soft tissue infection- Primary Unspecified infectious and parasitic diseases Other acute osteomyelitis of left foot ([facility]) documented in this encounter Additional Health Concerns Infection Onset Date Last Indicated Resolved Time 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
--- OUTSIDE RECORDS SUMMARY | 2024-03-13 08:59 | XMS_ITS | Encounter Summary ---
Author Organization [facility] Address [address] [place] [address] Phone Care Team Providers Care Glaze Sprayer Name Role Phone Unavailable Primary Care Provider Unavailabl e Reason for Visit * Reason Comments Follow-up Encounter Details Date Type Department Care Team (Late st Contact Info) Description 12/17/2023 1:45 PM CDT Office Visit [facility] [address] [address] Afshan Sims, DPMorelia [address] [phone] S/P foot surgery, right (Primary Dx) Discharge [...] Low : 1980 Sex: male Preferred Name: Mtat Medical Decision Making: s/p partial 1st metatarsal [...] --Patient is own [facility] Clinic plan: -Discussed postoperative [...]
--- OUTSIDE RECORDS SUMMARY | 2024-03-13 08:59 | XMS_ITS | Encounter Summary ---
Author Organization [facility] Address [address] [place] [address] Phone Care Team Providers Care Postal Service Sectional Center Manager Name Role Phone Unavailable Primary Care [...]
--- OUTSIDE RECORDS SUMMARY | 2024-03-13 08:59 | XMS_ITS | Encounter Summary ---
Author Organization [facility] Address [address] [place] [address] Phone Care Team Providers Care Adult Nurse Practitioner Name Role Phone Unavailable Primary Care [...]
--- OUTSIDE RECORDS SUMMARY | 2024-03-13 08:59 | XMS_ITS | Encounter Summary ---
Author Organization [facility] Address [address] [place] [address] Phone Care Team Providers Care Instruction Dean Name Role Phone Unavailable Primary Care Provider [...] FULL BODY CHAMBER PER 30 MINUTE INTERVAL MT PHYS/QHP ATTN&SUPVJ HYPRBARIC OXYGEN TX/SESSION Routine, Hbo - [id number] Referral ID Status Reason Start Date Expiration Date V isits Requested Visits Authorized [id number] Auth Not Needed 12/20/2023 03/09/2024 30 30 Encounter Details Date Type Department Care Team (Latest Contact Info) Description 12/22/2023 9:43 AM CDT - 12/22/2023 11:59 PM CDT Hospital Encounter [facility] Hyperbaric 701 [facility] 980 [place], [place] [address] Narcisa Sanford MD 701 [place], [place] [address] Routine, Hbo - [id number] Discharge Disposition: Discharged to home or self [...] hesitate to call the Hyperbaric Department at [phone] during clinic hours or page compensation intern staff with any updates, questions, or concerns. Continuous attending physician supervision was provided throughout the hyperbaric oxygen treatment.I have reviewed and agree with treatment note created by the Hyperbaric Medicine Nurse Practitioner, Mayuri Hinojosa APRN, LINOLEUM FLOOR INSTALLER. Narcisa Sanford MD, 12/22/2023 3:23 PM documented in this encounter Plan of Treatment Not on file documented as of this encounter Procedures Procedure Name Priority Date/Time Associated Diagnosis Comments POC GLUCOSE Routine 12/22/2023 9:48 AM CDT documented in this encounter Results * (ABNORMAL) POC GLUCOSE (12/22/2023 9:48 AM CDT) POC Glucose 318(H) 70 - 100 mg/dL [facility] - POINT OF CARE Blood 12/22/2023 9:48 AM CDT Nikolai Martinez MD LABORATORY [facility] - POINT OF CARE [address] [place] [address], documented in this encounter Visit Diagnoses Diagnosis Soft tissue infection- Primary Unspecified infectious and parasitic diseases Other acute osteomyelitis of left foot ([facility]) documented in this encounter Additional Health Concerns Infection Onset Date Last Indicated Resolved Time 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
--- OUTSIDE RECORDS SUMMARY | 2024-03-13 08:59 | XMS_ITS | Encounter Summary ---
Author Organization [facility] Address [address] [place] [address] Phone Care Team Providers Care Senior Buyer Name Role Phone Unavailable Primary Care Provider [...] FULL BODY CHAMBER PER 30 MINUTE INTERVAL ME PHYS/QHP ATTN&SUPVJ HYPRBARIC OXYGEN TX/SESSION Routine, Hbo - [id number] Referral ID Status Reason Start Date Expiration Date V isits Requested Visits Authorized [id number] Auth Not Needed 12/20/2023 03/09/2024 30 30 Encounter Details Date Type Department Care Team (Latest Contact Info) Description 12/20/2023 9:34 AM CDT - 12/20/2023 11:59 PM CDT Hospital Encounter [facility] [place]ic [address] [facility] [address] [place], [place] [phone] Shawn Vines MD [address] [facility] [address] [place], [place] [phone] Routine, Hbo - [id number] Discharge Disposition: Discharged to home or self [...] hesitate to call the Hyperbaric Department at [phone] during clinic hours or page personnel counselor staff with any updates, questions, or concerns. Continuous attending physician supervision was provided throughout the hyperbaric oxygen treatment.I have reviewed and agree with treatment note created by Lor Hinojosa APRN, FLATBED DRIVER. Shawn Vines MD, 12/20/2023 12:49 PM documented in this encounter Plan of Treatment Not on file documented as of this encounter Procedures Procedure Name Priority Date/Time Associated Diagnosis Comments POC GLUCOSE Routine 12/20/2023 12:28 PM CDT POC GLUCOSE Routine 12/20/2023 10:06 AM CDT documented in this encounter Results * (ABNORMAL) POC GLUCOSE (12/20/2023 12:28 PM CDT) POC Glucose 265(H) 70 - 100 mg/dL [facility] [place] MAIN [place] [facility] - POINT OF CARE Blood 12/20/2023 12:2 8 PM CDT Shawn Vines MD LABORATORY Performing Organization Address City/[facility]/ZIP Co de Phone Number [facility] POINT OF [facility] [address] [place] [address], * (ABNORMAL) POC GLUCOSE (12/20/2023 10:06 AM CDT) POC Glucose 284(H) 70 - 100 mg/dL [facility] Blood 12/20/2023 10:0 6 AM CDT Shawn Vines MD LABORATORY Performing Organization Address [facility] de Phone Number [facility] [address] [place] [address], [place] documented in this encounter Visit Diagnoses Diagnosis Soft tissue infection- Primary Unspecified infectious and parasitic diseases Other acute osteomyelitis of left foot ([facility]) documented in this encounter Administered Medications [...]
--- OUTSIDE RECORDS SUMMARY | 2024-03-13 08:59 | XMS_ITS | Encounter Summary ---
Author Organization [facility] Address [address] [place] [address] Phone Care Team Providers Care District Director Name Role Phone Unavailable Primary Care [...]
--- OUTSIDE RECORDS SUMMARY | 2024-03-13 08:59 | XMS_ITS | Encounter Summary ---
Author Organization [facility] Address [address] [place] [address] Phone Care Team Providers Care Cow Tender Name Role Phone Unavailable Primary Care Provider Unavailabl e Reason for Visit * Reason Comments Consult Encounter Details Date Type Department Care Team (Late st Contact Info) Description 12/24/2023 10:00 AM CDT Office Visit [facility] [address] [phone] 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, SHIPBOARD INTELLIGENCE ANALYST, RAND TACKER [address] [place] [address] 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); [...] area dry. Okay to discharge to [facility] if there is somebody who can do dressing changes daily. Appointment has been made for follow-up on 01/28/2024 documented in this encounter Progress Notes * 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 APRN, PATRICIA - 12/24/2023 10:00 AM CDT Images from the original note were not included. [facility]ACT[facility] PROVIDER SURGERY CLINIC VISIT NOTE - ENTRY OPERATOR Stephanie Low : 1980 Sex: male Plan : Continue wet-to-dry dressing changes with Vashe to the groin incision. With the each dressing change; make sure the groin area is clean and dry. Utilize Interdry to keep abdominal fluids and groin dry Okay for patient to discharge [facility] if help is available to change the [...] No Jose Castelan APRN, CNP 12/24/2023 13:40 [facility] Department of Surgery Pager: via [employer] I have spent 30 minutes with this patient today in which greater than 50% of this time was spent incounseling/coordination of care regarding in patient care, review of imaging/labs, chart review andconsultant recommendations. Dictation Disclaimer: Some notes are completed with voice-recognition dictation software. Errors are generally corrected in real time. Please contact me via [employer] staff message if you note any errors [...]
--- OUTSIDE RECORDS SUMMARY | 2024-03-13 09:00 | XMS_ITS | Encounter Summary ---
[facility] Organization [facility] Address [address] [place] [address] Phone Care Team Providers Care Ride Mechanic Name Role Phone Unavailable Primary Care Provider Unavailabl e Reason for Visit * Auth/Cert (Routine) Specialty Diagnoses / Procedures Referred By Katherine tidwell Referred To Contact SURGERY Diagnoses Other acute osteomyelitis of left foot ([facility]) Eusebio Vivar MD [address] [place] [phone] Or P4 [address] [place] [address] Referral ID Status Reason Start Date Expiration Date Visits Re quested Visits Authorized [id number] 1 1 Encounter Details Date Type Department Care Team (Late st Contact Info) Description 12/10/2023 10:39 AM CDT Anesthesia Event OR P4 [address] [place] [phone] Clint White MD [address] [place] [address] [phone] Carly Jordan MD [address] [place] [phone] Anesthesia Record Procedure Summary Procedure Name Responsible [...] [facility]est[facility] type: General () Patient [...] GI - negative ROS Hematologic/Onc (+) anemia /Renal/Online User Experience Strategist - negative ROS Airway Mallampati: II TM distance: >3 FB Neck ROM: full Mouth Opening: good Dental - normal exam OB Other Physical Exam Anesthesia Plan ASA 2 MAC Post-op Care: routine analgesia Anesthetic plan and risks discussed with patient. Plan discussed with CERTIFIED CODER. Vitals: 12/10/23 0700 BP: 145/69 Pulse: 72 [...]
--- OUTSIDE RECORDS SUMMARY | 2024-03-13 09:00 | XMS_ITS | Encounter Summary ---
Author Organization [facility] Address [address] [place] [phone] Phone Care Team Providers Care Staff Counselor Name Role Phone Unavailable Primary Care Provider Unavailabl e Reason for Visit * Auth/Cert (Routine) Specialty Diagnoses / Procedures Referred By Katherine tidwell Referred To Contact SURGERY Diagnoses Other acute osteomyelitis of left foot ([facility]) Eusebio Vivar MD [address] [place] [address] Or P4 [address] [place] [phone] Referral ID Status Reason Start Date Expiration Date Visits Re quested Visits Authorized [id number] 1 1 Encounter Details Date Type Department Care Team (Late st Contact Info) Description 12/08/2023 7:28 AM CDT Anesthesia Event OR P4 [address] [place] [address] [phone] Dontae Higgins MD [address] [place], [place] [address] Carly Jordan MD [address] [place], [place] [phone] Anesthesia Record Procedure Summary Procedure Name Responsible [...] by Irene Bynum RN 12/08/232112 by Mitra Alvaerz, RN documented in this encounter Social History [...] [facility] Anesthesia type: General () Patient [...] GI - negative ROS Hematologic/Onc (+) anemia /Renal/Fingerprint Technician - negative ROS Airway Mallampati: II TM distance: >3 FB Neck ROM: full Mouth Opening: good Dental - normal exam OB Other Physical Exam Anesthesia Plan ASA 2 MAC Post-op Care: routine analgesia Anesthetic plan and risks discussed with patient. Plan discussed with TIMBER REPAIRER. Vitals: 12/08/23 0618 BP: 157/81 Pulse: 61 [...]
--- OUTSIDE RECORDS SUMMARY | 2024-03-13 09:00 | XMS_ITS | Encounter Summary ---
Author Organization [facility] Address [address] [place] [address] Phone Care Team Providers Care Doctor Of Naprapathy Name Role Phone Unavailable Primary Care Provider Unavailabl e Reason for Visit * Auth/Cert (Routine) Specialty Diagnoses / Procedures Referred By Katherine tidwell Referred To Contact SURGERY Diagnoses Other acute osteomyelitis of left foot ([facility]) Eusebio Vivar MD [address] [place] [address] Or P4 [address] [place] [address] Referral ID Status Reason Start Date Expiration Date Visits Re quested Visits Authorized [id number] 1 1 Encounter Details Date Type Department Care Team (Late st Contact Info) Description 12/10/2023 9:49 AM CDT - 12/10/2023 11:34 AM CDT Surgery OR P4 [address] [place] [address] Suzy Patino DPM [address] [id number] REVISION, AMPUTATION SITE, POSSIBLE PARTIAL FOOT AMPUTATION, [...] on discharge due to cost/transport issues at [place]. HOSPITAL COURSE BY PROBLEM: Acute osteomyelitis of [...] 12/12 - discussed with PharmD. HTN: Continue FIRE MARSHAL amlodipine. Hyperlipidemia: Continue FIRE MARSHAL rosuvastatin. Tobacco use disorder: Continue NRT. Hx of TBI. Malnutrition Weight: (!) 139.9 kg (308 lb 6.8 oz) Wt Change from Previous: 0 Kg Wt Change from Admit: 0 Kg % Wt Change from Adm: 0 % [place] Body Wt (IBW) Male (kg): 75.3 kg [...] Comments: Fax to Dr. Aretha Damon at [phone] PANEL HEPATIC FUNCTION Standing Status: Future Standing Exp. Date: 03/13/24 Order Comments: Fax to Dr. Aretha Damon at [phone] Scheduling Instructions: Hepatic Function Panel includes: Albumin, Alk Phos, ALT, AST, Direct Bilirubin, Total Bilirubin and Total Protein C-REACTIVE PROTEIN Standing Status: Future Standing Exp. Date: 03/13/24 Order Comments: Fax to Dr. Aretha Damon at [phone] CREATININE, SERUM Standing Status: Future Standing Exp. Date: 03/13/24 Order Comments: Fax to Dr. Aretha Damon at [phone] Referral to Physical Therapy Referral Priority: Routine [...] of plan of care? Yes Okay for Care Home Facility standing orders? Order Specific Question Answer Comments OK for Care Home Facility house standing orders? Yes Give Mantoux unless current or contraindicated. Scheduling Instructions: Please specify in comments! Resume previous standing orders per [facility] policy Order Comments: Resume previous standing orders per [facility] policy Scheduling Instructions: Please specify in comments! [...] equipment/supplies recommended: None Final discharge destination: [facility]acute [facility] with rehab care R: The patient and [...] hesitate to call the Hyperbaric Department at [phone] during clinic hours or page web communications [...] recent) Eusebio Perez PharmD 12/13/2023 21:07 Pager: ([facility]) * Emily Hannah RN - 12/13/2023 1:07 PM CDTSummary: Discharge planning Clinical Coordinator Update Patient is medically ready for discharge back to [facility]- since 12/11. Spoke to Tabatha at [facility] today ([phone]) who reported that the patient was not [...] () of patient departure: 12/13/2023 @1530 Destination: [address] [place] [address] Type of ride: wheelchair Transportation vendor of ride: [facility] [phone] * If this ride needs to be [...] Clinical Coordinators will be informed via a TelYaBeamq page. PCS form was completed in Progress [...] infection Attending provider: Igor Glover MD Insurance: [facility] Secondary insurance: [place] [employer] Height: Height: 180.3 cm (5' [...] hesitate to call the Hyperbaric Department at [phone] during clinic hours or page web communications [...] 12/12 - discussed with PharmD. HTN: Continue FIRE MARSHAL amlodipine. Hyperlipidemia: Continue FIRE MARSHAL rosuvastatin. Tobacco use disorder: Continue NRT. Hx of TBI. FEN: Regular consistent carb diet. Code status: Full code. VTE prophylaxis: VTE prophylaxis with lovenox to start 12/10. Lines: No central line. No mujica. Discharge planning: Discharg to [facility] in [place] when they're able to accept him back.Possibly [...] Glover MD, 12/12/2023 2:02 PM Page via Apportable * Narcisa Tobar CHAIN MAKER HAND - 12/12/2023 9:50 AM CDT . Care Management Follow-up Note Patient Name: Stephanie Low Date: 12/12/2023 Patient/Family Discharge Goals: Patient's Discharge Goal: back to [facility] Discharge Goal: n/a Discharge Destination Expected Discharge [...] Fax Patient Preferred [facility] Pending - No Request Sent N/A [id number] [facility] [id number] -- Narcisa Tobar LGSW, 12/12/2023 9:50 AM * Aretha Damon MD - 12/12/2023 8:53 AM CDT ID PROGRESS NOTE Stephanie Low 1980 male [id number] ASSESSMENT: MRSA left foot osteomyelitis S/p I&D [...] PM CDT MEDICINE PROGRESS NOTE - STAFF tSephanie Low : 1980 Sex: male PATIENT SUMMARY: [...] 12/12 - discussed with PharmD. HTN: Continue FIRE MARSHAL amlodipine. Hyperlipidemia: Continue FIRE MARSHAL rosuvastatin. Tobacco use disorder: Continue NRT. Hx of TBI. FEN: Regular consistent carb diet. Code status: Full code. VTE prophylaxis: VTE prophylaxis with lovenox to start 12/10. Lines: No central line. No mujica. Discharge planning: Discharg to [facility] in [place] when they're able to accept him back.Possibly [...] Glover MD, 12/11/2023 7:34 PM Page via Apportable * Eusebio Perez, PharmD - 12/11/2023 3:38 [...] recent) Eusebio Perez PharmD 12/11/2023 19:22 Pager: ([employer]) * Lizbeth Cavazos LICSW - 12/11/2023 2:41 [...] (1st today), and has [facility] Medicare Advantage (which requires prior authorization). GARY advised this likely cannot be resolved during the weekend due to the barriers listed above. Follow up needed: GARY will try to problem solve if Cruz Aguiar calls back, if not weekday team to follow up on plan for discharge. RAJ Cadena LICSW Inpatient Finance Controller - Casual (weekends only) Available via [employer] (Cuponium) Lizbeth Cavazos LICSW, 12/11/2023 2:41 PM Addendum [id number]: GARY received update from attending physician sharing [...] hesitate to call the Hyperbaric Department at [phone] during clinic hours or page web communications [...] Schizophrenia History of TBI --Patient is own [facility] RECOMMENDATIONS: 1. Dressing: Dressed with Betadine 4 [...] continue to follow while admitted. Please page web communications specialist resident with questions. Patient was discussed with web communications specialist staff Interval history: Patient seen and [...] 12/12 - discussed with PharmD. HTN: Continue FIRE MARSHAL amlodipine. Hyperlipidemia: Continue FIRE MARSHAL rosuvastatin. Tobacco use disorder: Continue NRT. Hx of TBI. FEN: Regular consistent carb diet. Code status: Full code. VTE prophylaxis: VTE prophylaxis with lovenox to start 12/10. Lines: No central line. No mujica. 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 Denise Esteves Inpatient Clinical Coordinator [facility] Office: [phone] * Suzy Patino DPM - 12/10/2023 8:42 [...] Schizophrenia History of TBI --Patient is own [facility] RECOMMENDATIONS: 1. Dressing: Dressed in OR with [...] continue to follow while admitted. Please page web communications specialist resident with questions. Patient was discussed with web communications specialist staff Interval history: Patient seen resting [...] 12/12 - discussed with PharmD. HTN: Continue FIRE MARSHAL amlodipine. Hyperlipidemia: Continue FIRE MARSHAL rosuvastatin. Tobacco use disorder: Continue NRT. Hx of TBI. FEN: Regular consistent carb diet. Code status: Full code. VTE prophylaxis: VTE prophylaxis with hep to start 12/08. Lines: No central line. No mujica. [facility] for Demar's [...] Glover MD, 12/09/2023 10:33 PM Page via Apportable * David Mancuso, PharmD - 12/09/2023 3:54 [...] 12/09/2023 Expected DC Date: 12/10/2023 Social Information Freight Loader Used: None needed Decision Maker at Admission: Self Living Situation: care home (see comment) Patient Identified Support System: sister, significant other Services Receiving: Waivered services (see comment) Complex Medical Needs: Other (see comment) (wound care) Transportation Used for Discharge: stretcher Safety Concerns: None Behavioral Health Concerns: None Patient Family Goals Patient's Discharge Goal: back to [facility] Family's Discharge Goal: n/a Plan/Interventions Expected Discharge Disposition: Care Home Facility Patient Information Verification Verified demographic information, including SSN, Next of Kin, and Guardianship: Yes Verified PCP: Yes If post-acute placement is needed, have vaccination status needs been addressed?: Not applicable Risks for Readmission: None Summary of pertinent information: Patient admitted from [facility] with concern for a left great to osteomyelitis that was resected 12/07. 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 Have a call out to [facility] to confirm bed hold ([phone]). Spoke to staff at his [facility] (Minnie [phone]) to also update and confirm that he can return there when ultimately. Patient currently has started on HBO, this may be problematic with returning to [facility]. Emily Hannah RN, 12/09/2023 1:49 PM [...] Schizophrenia History of TBI --Patient is own [facility] RECOMMENDATIONS: 1. Dressing: Dressed with Vashe soaked [...] continue to follow while inpatient Please page web communications specialist resident with questions. Patient was discussed with web communications specialist staff Interval history: Patient seen and [...] Schizophrenia History of TBI --Patient is own [facility] RECOMMENDATIONS: 1. Dressing: Dressed in operating room [...] continue to follow while inpatient Please page web communications specialist resident with questions. Patient was seen with web communications specialist staff, Dr. Palomo Interval history: Patient [...] male D: Stephanie Low was admitted to [address] from PACU at 1446 for Other acute osteomyelitis of leftfoot ([facility]) . Patient: alert, oriented to person, [...] informed of Patient Valuables and Belongings Policy (#[id number]): Policy reviewed - patient/family/designee has indicated that [...] 12/12 - discussed with PharmD. HTN: Continue FIRE MARSHAL amlodipine. Hyperlipidemia: Continue FIRE MARSHAL rosuvastatin. Tobacco use disorder: Continue NRT. Hx of TBI. FEN: Regular consistent carb diet. Code status: Full code. VTE prophylaxis: VTE prophylaxis with hep to start 12/08. Lines: No central line. No mujica. 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 [...] -F/up cultures currently in process -NPO at [place], holding VTE ppx -AM BMP, CBC, CRP, ESR Chronic / Stable / Resolved / Ruled Out #T2DM: A1c 6.8% 07/2023. Reduce FIRE MARSHAL lantus to 15 U while NPO, Novolog 1U/CHO + LDSSI. Rechecking A1c. #HTN: FIRE MARSHAL amlodipine 10 mg daily #HLD: FIRE MARSHAL statin #Paranoid schizophrenia: FIRE MARSHAL prazosin #HILL: FIRE MARSHAL escitalopram 20 mg daily #Tobacco use disorder: [...] including pre-visit review of separately obtained history, [id number]-ba-[id number] interaction performing medically appropriate physical exam, patientcounseling/education, [...] the original note were not included. [facility] follow up: Green Surgery has made recommendations. [facility] will defer to surgery and sign off. Pt was at [facility] 11/09 to 11/24 for [...] wound healing. Message sent to primary team. [facility] Nursing follow up: Appreciate the [...] identified. WOCN available Wednesday through Wednesday on Fastly or [phone] [facility] Nursing attempts to see patients in person when possible, but will at times complete a chart/media review in order to recommend wound treatment in a timely manner. Please reconsult [facility] if wound condition changes or [...] on service at PharmD General Weekend Days (19pay) or [phone]. If no response within needed timeframe, please contact central pharmacy via phone at [phone]. Planned discharge medications are: Medication List Medications [...] NEW CONSULT NOTE Stephanie Low 1980 male [id number] REASON FOR CONSULT: I was asked to [...] bearing restrictions, otherwise bed to chair only FIRE MARSHAL Appropriate: No (more OR) Participated in goal setting and treatment planning: Patient Agrees with goals and treatment plan: Question patient's ability to understand. Gracia Arredondo, PT 12/10/2023 Pager: [facility] PT Department * David Cortes MD - 12/09/2023 9:58 AM CDT Images from the original note were not included. [facility] HYPERBARIC MEDICINE CONSULTATION Referring [...] old poorly controlled DMII male referred to [facility] Hyperbaric medical team for [...] Hyperbaric Medicine to become a part of [facility] care. Please do not hesitate to call the department at [phone] during clinic hours (M-F [phone]) or page the web communications specialist HYPERBARIC staff with any questions or [...] you for allowing us to participate in [facility] care. [place] for Hyperbaric Medicine: [phone]. David Cortes MD * Angela Cardenas CWOCN - 12/08/2023 3:00 PM CDTAssociated Order(s): CONSULT TO WOUND NURSE Images from the original note were not included. [facility] Nursing consulted by nursing for perineal wounds. Pt was at [facility] 11/09 to 11/24 for [...] wound healing. Message sent to primary team. [facility] Nursing follow up: later this week after surgery sees Staff to continue to follow skin injury bundle. Escalate concerns to WOCN through additional consult or to the provider when barriers are identified. WOCN available Wednesday through Wednesday on Fastly or [phone] [facility] Nursing attempts to see patients [...] continue to follow while inpatient Please page web communications specialist resident with questions. Patient was seen with web communications specialist staff, Dr. Palomo CHIEF COMPLAINT: Left [...] OR Date: 12/10/2023 Surgeon: Suzy Patino DPM Science Liaison(s): Samina Singletary DPM PGY3 Pre-Op Diagnosis: [...] 1980 Sex: male Surgeon: Che Palomo DPM Science Liaison(s): Niraj Lewis DPM PGY-3 Jf Sky, [...] 2023 2242 Started nicotine gum PRN Started FIRE MARSHAL glargine and lispro The patient remained in the emergency department through the end of my shift. Their care was signedout [id number] with the oncoming provider. Dx, DDx, Assessment and Plan was discussed with Attending Emergency Medicine Physician. Final Clinical Impression 1. Other acute osteomyelitis of left foot ([facility]) Disposition and Plan Signed out to [...] in real time. Please contact me via [employer] staff message if you note any errors requiring clarification. * Farida Beyer RN - 12/07/2023 7:41 PM CDT Assumed care of pt. SNF director here as pt was reported missing when he did not return back from the clinic. Plan for admission with OR tomorrow. NPO at midnight, pt aware. * Allyssa Drummond MD - 12/07/2023 4:25 PM CDT Emergency Department Physician Note [facility] HISTORY Stephanie Low is a 43 [...] 1. Other acute osteomyelitis of left foot ([facility]) DISPOSITION & PLAN Patient remained in [...] Toe Head to Toe Assessment Shift Summary [id number] Alert and oriented x3, unsure of the [...] Physical Therapy Inpatient Discharge Summary Stephanie Low [id number] Diagnosis Patient Active Problem List Diagnosis Fourniers [...] to Toe Assessment Shift Summary Shift Summary [id number] Pt alert oriented and able to make [...] Toe Head to Toe Assessment Shift Summary [id number] Daily dressing change done per order, reported [...] Toe Head to Toe Assessment Shift Summary [id number] Alert and oriented x 4, able to [...] Toe Head to Toe Assessment Shift Summary [id number] Patient is alert and oriented x 4,RA.Vitals [...] Defined Limits * Nursing Assessment - Sravani Rosdao, SABINE - 12/12/2023 6:50 PM CDT Nursing [...] amputation RLE - amputation Comments: R amputation FIRE MARSHAL Integumentary Assessment Within Defined Limits except for: [...] Toe Head to Toe Assessment Shift Summary [id number] Patient is alert and oriented x 4,RA.Vitals [...] 12/10/2023 6:30 PM PGY-1 [facility] Pager: [phone] * Nursing Assessment - May Torres RN [...] Singletary DPM - 12/10/2023 11:06 AM CDT [facility] Immediate Post Operative Note Note written: [...] Toe Head to Toe Assessment Shift Summary [id number] Alert and oriented x3, unsure of the [...] Head to Toe Assessment Shift Summary Night [id number] PT is AO x4. Able to make [...] Dennis RN - 12/08/2023 2:28 PM CDTSummary: MIX MAKERtelehealth case manager PACU to IP Nursing Handoff Note S [...] Comments: RN: Cheryl Dennis RN Extension #: [id number] * Op Note Immediate - Niraj Lewis DPM - 12/08/2023 7:48 AM CDT [facility] Immediate Post Operative Note Note written: [...] 1. Other acute osteomyelitis of left foot ([facility]) Eusebio Vivar MD, 12/08/2023 12:16 AM * Interval Note Provider - Shayna Schreiber MD - 12/07/2023 8:53 PM CDT Handoff Communication Note for Hospital Admission Verbal handoff received from Dr. Drummond in [facility]. Patient Class: Inpatient Cardiac Monitoring: Not [...] CDT Other acute osteomyelitis of left foot ([facility]) REVISION, AMPUTATION SITE, LOWER EXTREMITY Urgent [...] CDT Other acute osteomyelitis of left foot ([facility]) PC CULTURE,BACTERIAL,D EFINITIVE,AEROBIC ANY SOURCE Routine 12/08/2023 7:51 AM CDT PC CULTURE,BACTERIAL,D EFINITIVE,AEROBIC ANY SOURCE Routine 12/08/2023 7:51 AM CDT Other acute osteomyelitis of left foot (CMS/[facility]) PC CULTURE FUNGI ISOLATION W-WO PRESUMPTIVE ID SKIN OTH Routine 12/08/2023 7:51 AM CDT PC CULTURE FUNGI ISOLATION W-WO PRESUMPTIVE ID SKIN OTH Routine 12/08/2023 7:51 AM CDT Other acute osteomyelitis of left foot (CMS/[facility]) PC CULTURE SPECIMEN, ANAEROBIC Routine 12/08/2023 7:51 AM CDT PC CULTURE SPECIMEN, ANAEROBIC Routine 12/08/2023 7:51 AM CDT Other acute osteomyelitis of left foot ([facility]) POC GLUCOSE Routine 12/08/2023 7:22 AM [...] POC Glucose 255(H) 70 - 100 mg/dL [facility] Blood 12/14/2023 11:2 9 AM CDT Eusebio Vivar MD LABORATORY [facility] [address] [place] [address], * (ABNORMAL) POC GLUCOSE (12/14/2023 6:32 AM CDT) POC Glucose 186(H) 70 - 100 mg/dL [facility] POINT OF CARE Blood 12/14/2023 6:32 AM CDT Eusebio Vivar MD LABORATORY Performing Organization Address [facility] de Phone Number [facility] [place] [address], * (ABNORMAL) POC GLUCOSE (12/13/2023 9:05 PM CDT) POC Glucose 175(H) 70 - 100 mg/dL [facility] POINT OF [facility] Blood 12/13/2023 9:05 PM CDT Eusebio Vivar MD LABORATORY Performing Organization Address [facility] [place] [address], * VANCOMYCIN LEVEL (12/13/2023 5:24 PM CDT) Vancomycin 17.0 mcg/mL [facility] Comment:Expected Range (Trou gh): 10-20 mcg/ml Blood 12/13/2023 5:24 PM CDT 12/13/2023 5:46 PM CDT Narrative [facility] - 12/13/2023 6:34 PM CDT Please ensure trough level drawn prior to next vancomycin dose. Thank you Peak or trough:->Trough Eusebio KolbD LABORATORY Performing Organization Address City/[facility] Co de Phone Number [facility] [address] [address] * (ABNORMAL) POC GLUCOSE (12/13/2023 4:00 PM CDT) POC Glucose 153(H) 70 - 100 mg/dL [facility] POINT OF CARE Blood 12/13/2023 4:00 PM CDT Eusebio Vivar MD LABORATORY [facility] POINT [facility] [address] [place] [address], [place] * (ABNORMAL) POC GLUCOSE (12/13/2023 11:47 AM CDT) POC Glucose 271(H) 70 - 100 mg/dL [facility] POINT OF CARE Blood 12/13/2023 11:4 7 AM CDT Eusebio Vivar MD LABORATORY Performing Organization Address [facility]/ZIP Co de Phone Number [facility] [address] [place] [address], [place] * (ABNORMAL) POC GLUCOSE (12/13/2023 6:35 AM CDT) POC Glucose 204(H) 70 - 100 mg/dL [facility] POINT OF [facility] Blood 12/13/2023 6:35 AM CDT Eusebio Vivar MD LABORATORY Performing Organization Address [facility] Co de Phone Number [facility] [address] [place] [address], [place] * (ABNORMAL) POC GLUCOSE (12/12/2023 8:54 PM CDT) POC Glucose 170(H) 70 - 100 mg/dL [facility] POINT OF CARE Blood 12/12/2023 8:54 PM CDT Eusebio Vivar MD LABORATORY Performing Organization Address City/[facility]/ZIP Co de Phone Number [facility] POINT OF [facility] [address] [place] [address], [place] * (ABNORMAL) POC GLUCOSE (12/12/2023 4:10 PM CDT) POC Glucose 252(H) 70 - 100 mg/dL [facility] POINT OF CARE Blood 12/12/2023 4:10 PM CDT Eusebio Vivar MD LABORATORY Performing Organization Address [facility] Co de Phone Number [facility] [address] [place] [address], [place] * (ABNORMAL) POC GLUCOSE (12/12/2023 11:07 AM CDT) POC Glucose 200(H) 70 - 100 mg/dL [facility] POINT OF [facility] Blood 12/12/2023 11:0 7 AM CDT Eusebio Vivar MD LABORATORY Performing Organization Address [facility] Co de Phone Number [facility] [address] [place] [address], [place] * (ABNORMAL) POC GLUCOSE (12/12/2023 6:42 AM CDT) POC Glucose 185(H) 70 - 100 mg/dL [facility] Blood 12/12/2023 6:42 AM CDT Eusebio Vivar MD LABORATORY Performing Organization Address [facility] de Phone Number [facility] [address] [place] [address], [place] * (ABNORMAL) POC GLUCOSE (12/11/2023 9:10 PM CDT) POC Glucose 226(H) 70 - 100 mg/dL [facility] Blood 12/11/2023 9:10 PM CDT Eusebio Vivar MD LABORATORY Performing Organization Address [facility] Co de Phone Number [facility] [address] [place] [address], [place] * VANCOMYCIN LEVEL (12/11/2023 5:28 PM CDT) Vancomycin 19.6 mcg/mL [facility] LAB Comment:Expected Range (Trou gh): 10-20 mcg/ml Blood 12/11/2023 5:28 PM CDT 12/11/2023 5:37 PM CDT Narrative [facility] - 12/11/2023 6:46 PM CDT Peak or trough:->Trough Igor Glover MD LABORATORY [facility] LAB [facility] [address] [place] [address] * (ABNORMAL) POC GLUCOSE (12/11/2023 4:13 PM CDT) POC Glucose 173(H) 70 - 100 mg/dL [facility] Blood 12/11/2023 4:13 PM CDT Eusebio Vivar MD LABORATORY Performing Organization Address City/[facility] Co de Phone Number [facility] POINT OF [place] [id number], [place] * (ABNORMAL) POC GLUCOSE (12/11/2023 11:43 AM CDT) POC Glucose 283(H) 70 - 100 mg/dL [facility] POINT OF [facility] Blood 12/11/2023 11:4 3 AM CDT Eusebio Vivar MD LABORATORY Performing Organization Address City/[facility] Co de Phone Number [facility] [place] [address], [place] * (ABNORMAL) POC GLUCOSE (12/11/2023 10:28 AM CDT) POC Glucose 198(H) 70 - 100 mg/dL [facility] CARE Blood 12/11/2023 10:2 8 AM CDT Eusebio Vivar MD LABORATORY Performing Organization Address City/[facility]/ZIP Co de Phone Number [facility] CARE [address] [place], [place] [address], [place] * (ABNORMAL) POC GLUCOSE (12/11/2023 6:41 AM CDT) POC Glucose 173(H) 70 - 100 mg/dL [facility] Blood 12/11/2023 6:41 AM CDT Eusebio Vivar MD LABORATORY [facility] [address] [place] [address], [place] * (ABNORMAL) CBC WITH PLTS/AUTO DIFF (12/11/2023 5:50 AM CDT) Pathologist [facility] WBC 8.72 4.00 - 10.00 k/cmm [facility] RBC 3.82(L) 4.60 - 6.00 m/cmm [facility] Hgb 10.6(L) 13.1 - 17.5 g/dL [facility] Hematocrit 32.4(L) 40.0 - 51.0 % [facility] MCV 84.8 80.0 - 100.0 fL [facility] MCH 27.7 25.0 - 32.0 pg [facility] MCHC 32.7 31.0 - 36.0 g/dL [facility] RDW 13.5 11.5 - 14.5 % [facility] Plt 400 150 - 400 k/cmm [facility] MPV 9.3 6.5 - 12.5 fL [facility] Automated Abs Neutrophil 4.22 1.70 - 6.50 k/cmm [facility] Comment:Preliminary ANC, Fin al Result to Follow Abs Immature Granulocyte 0.09 0.00 - 0.09 k/cmm [facility] Comment:The Immature Granulo cyte Absolute count contains metamyelocytes and myelocytes. Abs Neutrophil 4.22 1.70 - 6.50 k/cmm [facility] Abs Lymphocyte 2.59 0.80 - 4.00 k/cmm [facility] Abs Monocyte 1.00 0.20 - 1.00 k/cmm [facility] Abs Eosinophil 0.79(H) 0.00 - 0.60 k/cmm [facility] Abs Basophil 0.03 0.00 - 0.20 k/cmm [facility] Blood 12/11/2023 5:50 AM CDT 12/11/2023 6:26 AM CDT Igor Glover MD LABORATORY Performing Organization Address [facility] Co de Phone Number [facility] [address] [address] * (ABNORMAL) PANEL BASIC METABOLIC (BMP) (12/11/2023 5:50 AM CDT) CO2 25 22 - 30 mmol/L [facility] Glucose 178(H) 70 - 100 mg/dL [facility] BUN 9 6 - 20 mg/dL [facility] Creatinine 0.92 0.70 - 1.25 mg/dL [facility] Calcium 9.0 8.6 - 10.0 mg/dL [facility] Sodium 136 135 - 148 mmol/L [facility] Potassium 4.1 3.5 - 5.3 mmol/L [facility] Chloride 100 92 - 108 mmol/L [facility] eGFR (2020 CKD-EPI) 105 >=60 ml/min/1.7 3m2 [facility] Comment: The estimated glomerular filtration rate (eGFR) was calculated using the CKD-EPI 2020 creatinine equation, which does not include race as a factor. This equation is validated in individuals 18 years of age and older, and eGFR is normalized to a body surface area of 1.73m^2. AnGap 11 8 - 16 mmol/L [facility] Blood 12/11/2023 5:50 AM CDT 12/11/2023 6:25 AM CDT Igor Glover MD LABORATORY Performing Organization Address [facility] Co de Phone Number [facility] [address] [address] * (ABNORMAL) POC GLUCOSE (12/10/2023 9:03 PM CDT) POC Glucose 206(H) 70 - 100 mg/dL [facility] Blood 12/10/2023 9:03 PM CDT Eusebio Vivar MD LABORATORY [facility] [address] [place] [address], [place] * (ABNORMAL) POC GLUCOSE (12/10/2023 4:16 PM CDT) POC Glucose 341(H) 70 - 100 mg/dL [facility] Blood 12/10/2023 4:16 PM CDT Eusebio Vivar MD LABORATORY [facility] [address] [place] [address], [place] * XR CHEST 2 VIEWS PA [...] Glucose 194(H) 70 - 100 mg/dL [facility] Blood 12/10/2023 12:0 9 PM CDT Eusebio Vivar MD LABORATORY [facility] [address] [place] [address], * SURGICAL PATHOLOGY (12/10/2023 11:07 AM CDT) SURG PATH FINAL ?Surgical Pathology Report Collection Date: ?12/10/2023 11:07 CDT ? Ordering Physician: ? SUZY PATINO Received Date: ?12/10/2023 12:07 CDT ? Accession Number: ? [id number] ? Surgical Pathology Final Report Specimen Type: [...] Regalado M.D. Attending Pathologist. DDB/DDB 12.10.2023 13:39 [facility] AP Specimen FOOT STRUCTURE / Unknown 12/10/2023 11:07 AM CDT Comment:OR: Routine gross an d microscopic examination Tissue: 1st metatarsel left foot, cut margin Site: foot Additional clinical information: Suzy Patino DPM LAB PATHOLOGY [facility] [address] [address] * (ABNORMAL) POC GLUCOSE (12/10/2023 6:16 AM CDT) POC Glucose 228(H) 70 - 100 mg/dL [facility] Blood 12/10/2023 6:16 AM CDT Eusebio Vivar MD LABORATORY [facility] [address] [place] [address], * (ABNORMAL) CBC WITH PLTS/AUTO DIFF (12/10/2023 5:06 AM CDT) WBC 8.35 4.00 - 10.00 k/cmm [facility] RBC 3.81(L) 4.60 - 6.00 m/cmm [facility] Hgb 10.3(L) 13.1 - 17.5 g/dL [facility] Hematocrit 32.5(L) 40.0 - 51.0 % [facility] MCV 85.3 80.0 - 100.0 fL [facility] MCH 27.0 25.0 - 32.0 pg [facility] MCHC 31.7 31.0 - 36.0 g/dL [facility] RDW 13.4 11.5 - 14.5 % [facility] Plt 377 150 - 400 k/cmm [facility] MPV 9.4 6.5 - 12.5 fL [facility] Automated Abs Neutrophil 4.14 1.70 - 6.50 k/cmm [facility] Comment:Preliminary ANC, Fin al Result to Follow Abs Immature Granulocyte 0.08 0.00 - 0.09 k/cmm [facility] Comment:The Immature Granulo cyte Absolute count contains metamyelocytes and myelocytes. Abs Neutrophil 4.14 1.70 - 6.50 k/cmm [facility] Abs Lymphocyte 2.39 0.80 - 4.00 k/cmm [facility] Abs Monocyte 1.06(H) 0.20 - 1.00 k/cmm [facility] Abs Eosinophil 0.64(H) 0.00 - 0.60 k/cmm [facility] Abs Basophil 0.04 0.00 - 0.20 k/cmm [facility] Blood 12/10/2023 5:06 AM CDT 12/10/2023 5:40 AM CDT Igor Glover MD LABORATORY [facility] [address] [address] * (ABNORMAL) PANEL BASIC METABOLIC (BMP) (12/10/2023 5:06 AM CDT) CO2 26 22 - 30 mmol/L [facility] Glucose 204(H) 70 - 100 mg/dL [facility] BUN 11 6 - 20 mg/dL [facility] Creatinine 0.92 0.70 - 1.25 mg/dL [facility] Calcium 9.0 8.6 - 10.0 mg/dL [facility] Sodium 137 135 - 148 mmol/L [facility] Potassium 4.2 3.5 - 5.3 mmol/L [facility] Chloride 101 92 - 108 mmol/L [facility] eGFR (2020 CKD-EPI) 105 >=60 ml/min/1.7 3m2 [facility] Comment: The estimated glomerular filtration rate (eGFR) was calculated using the CKD-EPI 2020 creatinine equation, which does not include race as a factor. This equation is validated in individuals 18 years of age and older, and eGFR is normalized to a body surface area of 1.73m^2. AnGap 10 8 - 16 mmol/L [facility] Blood 12/10/2023 5:06 AM CDT 12/10/2023 5:40 AM CDT Igor Glover MD LABORATORY Performing Organization Address [facility] Co de Phone Number [facility] [address] [address] * (ABNORMAL) POC GLUCOSE (12/09/2023 9:18 PM CDT) POC Glucose 204(H) 70 - 100 mg/dL [facility] Blood 12/09/2023 9:18 PM CDT Eusebio Vivar MD LABORATORY Performing Organization Address [facility]/ZIP Co de Phone Number [facility] [address] [place] [address], * (ABNORMAL) PANEL BASIC METABOLIC (BMP) (12/09/2023 5:56 PM CDT) Sodium 134(L) 135 - 148 mmol/L [facility] Potassium 4.2 3.5 - 5.3 mmol/L [facility] Chloride 99 92 - 108 mmol/L [facility] CO2 23 22 - 30 mmol/L [facility] AnGap 12 8 - 16 mmol/L [facility] Glucose 246(H) 70 - 100 mg/dL [facility] BUN 13 6 - 20 mg/dL [facility] Creatinine 0.98 0.70 - 1.25 mg/dL [facility] Calcium 8.8 8.6 - 10.0 mg/dL [facility] eGFR (2020 CKD-EPI) 97 >=60 ml/min/1.7 3m2 [facility] Comment: The [...] Igor Glover MD LABORATORY Performing Organization Address City/[facility]/ZIP Co de Phone Number [facility] [address] [address] * VANCOMYCIN LEVEL (12/09/2023 5:56 PM CDT) Pathologist [facility] Vancomycin 22.0 mcg/mL [facility] Comment:Expected Range (Trou gh): 10-20 mcg/ml Blood 12/09/2023 5:56 PM CDT 12/09/2023 6:26 PM CDT Narrative [facility] - 12/09/2023 8:14 PM CDT Peak or trough:->Trough Gwen Gamez PharmD LABORATORY [facility] [address] [address] * (ABNORMAL) POC GLUCOSE (12/09/2023 4:08 PM CDT) POC Glucose 231(H) 70 - 100 mg/dL [facility] POINT OF CARE Blood 12/09/2023 4:08 PM CDT Eusebio Vivar MD LABORATORY Performing Organization Address [facility] Co de Phone Number [facility] POINT OF [facility] [address] [place] [address], * (ABNORMAL) POC GLUCOSE (12/09/2023 11:13 AM CDT) POC Glucose 282(H) 70 - 100 mg/dL [facility] POINT [facility] CARE Blood 12/09/2023 11:1 3 AM CDT Eusebio Vivar MD LABORATORY Performing Organization Address [facility] de Phone Number [facility] POINT [facility] [address] [place] [address], [place] * HBO TCO2 MEASUREMENT COMPLETE (12/09/2023 [...] 10:198-207. Bridget QUIÑONEZ et al. [facility] 2009, Vol. 36(1). ? [place] 07/27/13 [...] POC Glucose 198(H) 70 - 100 mg/dL [facility] Blood 12/09/2023 6:43 AM CDT Eusebio Vivar MD LABORATORY Performing Organization Address City/[facility]/ZIP Co de Phone Number [facility] POINT OF CARE [address] [place] [address], [place] * (ABNORMAL) POC GLUCOSE (12/08/2023 9:10 PM CDT) Pathologist [facility] POC Glucose 268(H) 70 - 100 mg/dL [facility] Blood 12/08/2023 9:10 PM CDT Eusebio Vivar MD LABORATORY [facility] POINT [facility] CARE [address] [place] [address], [place] * (ABNORMAL) SED RATE (ESR) (12/08/2023 4:47 PM CDT) Sed Rate 120(H) 2 - 10 mm/hr [facility] Blood 12/08/2023 4:47 PM CDT 12/08/2023 5:07 PM CDT Suzy Shafer PA-C LABORATORY Performing Organization Address [facility] Co de Phone Number [facility] [address] [address] * (ABNORMAL) PANEL BASIC METABOLIC (BMP) (12/08/2023 4:47 PM CDT) Sodium 134(L) 135 - 148 mmol/L [facility] Potassium 4.0 3.5 - 5.3 mmol/L [facility] Chloride 98 92 - 108 mmol/L [facility] CO2 24 22 - 30 mmol/L [facility] AnGap 12 8 - 16 mmol/L [facility] Glucose 247(H) 70 - 100 mg/dL [facility] BUN 16 6 - 20 mg/dL [facility] Creatinine 0.98 0.70 - 1.25 mg/dL [facility] Calcium 8.7 8.6 - 10.0 mg/dL [facility] eGFR (2020 CKD-EPI) 97 >=60 ml/min/1.7 3m2 [facility] Comment: The [...] Suzy Shafer PA-C LABORATORY Performing Organization Address [facility] Co de Phone Number [facility] [address] [address] * (ABNORMAL) GLYCOSYLATED HGB - A1C (12/08/2023 4:47 PM CDT) Hemoglobin A1C 8.5(H) 4.0 - 5.6 % [facility] Comment: Increased [...] Estimated Average Glucose 197(H) 68 - 114 [facility] Comment: The estimated Average Glucose (eAG) was calculated using an equation derived from a study of 507 adults with type 1, type 2, or no diabetes. Minority populations were underrepresented and children were not included. The eAG is not equivalent to a fasting glucose concentration. Blood 12/08/2023 4:47 PM CDT 12/08/2023 5:07 PM CDT Narrative [facility] - 12/08/2023 6:01 PM CDT If not done in the last 30 days. Suzy Shafer PA-C LABORATORY Performing Organization Address [facility] Co de Phone Number [facility] [address] [address] * (ABNORMAL) CBC WITH PLATELET (12/08/2023 4:47 PM CDT) WBC 10.39(H) 4.00 - 10.00 k/cmm [facility] RBC 3.59(L) 4.60 - 6.00 m/cmm [facility] Hgb 9.8(L) 13.1 - 17.5 g/dL [facility] Hematocrit 30.8(L) 40.0 - 51.0 % [facility] MCV 85.8 80.0 - 100.0 fL [facility] MCH 27.3 25.0 - 32.0 pg [facility] MCHC 31.8 31.0 - 36.0 g/dL [facility] RDW 13.5 11.5 - 14.5 % [facility] Plt 314 150 - 400 k/cmm [facility] MPV 9.3 6.5 - 12.5 fL [facility] Blood 12/08/2023 4:47 PM CDT 12/08/2023 5:07 PM CDT Suzy Shafer PA-C LABORATORY Performing Organization Address [facility]/ZIP Co de Phone Number [facility] [address] [address] * (ABNORMAL) C-REACTIVE PROTEIN (12/08/2023 4:47 PM CDT) C-Reactive Protein 77(H) <=4 mg/L [facility] Blood 12/08/2023 4:47 PM CDT 12/08/2023 5:07 PM CDT Suzy Shafer PA-C LABORATORY [facility] [address] [place] [address] * (ABNORMAL) POC GLUCOSE (12/08/2023 4:20 PM CDT) POC Glucose 204(H) 70 - 100 mg/dL [facility] POINT OF [facility] Blood 12/08/2023 4:20 PM CDT Eusebio Vivar MD LABORATORY Performing Organization Address City/[facility]/ZIP Co de Phone Number [facility] POINT OF [facility] [address] [place] [address], [place] * (ABNORMAL) POC GLUCOSE (12/08/2023 12:35 PM CDT) POC Glucose 227(H) 70 - 100 mg/dL [facility] POINT [facility] Blood 12/08/2023 12:3 5 PM CDT Eusebio Vivar MD LABORATORY [facility] POINT OF [facility] [address] [place] [address], [place] * (ABNORMAL) POC GLUCOSE (12/08/2023 10:02 AM CDT) POC Glucose 263(H) 70 - 100 mg/dL [facility] POINT OF CARE Blood 12/08/2023 10:0 2 AM CDT Eusebio Vivar MD LABORATORY [facility] [address] [place] [address], [place] * XR FOOT LEFT 3 V [...] POC Glucose 214(H) 70 - 100 mg/dL [facility] Blood 12/08/2023 8:32 AM CDT Eusebio Vivar MD LABORATORY [facility] [address] [place] [address], * SURGICAL PATHOLOGY (12/08/2023 7:56 AM CDT) SURG PATH FINAL ?Surgical Pathology Report Collection Date: ?12/08/2023 07:56 CDT ?Ordering Physician: ? CHE PALOMO Received Date: ?12/08/2023 08:41 CDT ?Accession Number: ? [id number] ? Surgical Pathology Final Report Specimen Type: [...] specimen reveals a yellow, trabeculated cut surface. [employer] sections are submitted following decalcification as follows: A1: Resection margin, en face A2: Full cross-section of metatarsal head (DDB) DDB/DDB 12.08.2023 9:52 Microscopic Description: Microscopic examination performed and findings are reflected in the final diagnosis. I personally examined the relevant preparations and rendered and confirmed the diagnosis. ? Signed - Tootie Mackenzie M.D. Attending Pathologist. DDB/DDB 12.08.2023 9:52 [facility] AP Specimen FOOT STRUCTURE / Unknown 12/08/2023 7:56 AM CDT Comment:OR: Routine gross an d microscopic examination Tissue: Left first metatarsal head Site: left foot Additional clinical information: evaluate cut side for osteomyelitis Che Palomo [facility] LAB PATHOLOGY Performing Organization Address [facility]/[place] de Phone Number [address] [address] * FUNGUS CULTURE:INCLUDES SUHAS (12/08/2023 7:51 AM CDT) Final Report No fungus isolated. [facility] SUHAS Prep No fungal elements seen. [facility] Bone STRUCTURE OF LEFT FOOT / Unknown 12/08/2023 7:51 AM CDT 12/08/2023 9:00 AM CDT Comment:2. Bone first metata rsal left foot Chekatelin Mullent DP LAB MICROBIOLOGY Performing Organization Address [facility] Co de Phone Number [address] [address] * ANAEROBE CULTURE (12/08/2023 7:51 AM CDT) Final Report No anaerobes isolated. [facility] Bone STRUCTURE OF LEFT FOOT / Unknown 12/08/2023 7:51 AM CDT 12/08/2023 9:00 AM CDT Comment:2. Bone first metata rsal left foot Chekatelin Mullent DP LAB MICROBIOLOGY Performing Organization Address [facility] Co de Phone Number [address] [address] * (ABNORMAL) TISSUE CULTURE:INCLUDES GRAM STAIN (12/08/2023 7:51 AM CDT) Final Report Positive Culture Few METHICILLIN RESISTANT Staphylococcus aureus (MRSA) isolated. 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 For susceptibility, see previous report on culture from wound culture collected 12/07/23. (POS) [facility] Organism METHICILLIN RESISTANT STAPHYLOCOCCUS AUREUS (MRSA)(POS) [facility] Gram Stain Report Corrected Report Positive Gram stain Rare PMN's seen. Rare gram positive cocci. Gram stain electronically reported to and acknowledged by: Dr. Niraj Lewis from OR at ??12/08/2023 10:09:09 by Jacklyn Easley MLS. Removed Pleomorphic gram variable bacilli from report. Results electronically reported to and acknowledged by: [facility] [place] 12/09/2023 12:48:27. Elizabeth Schwartz MLS. (POS) [facility] Bone STRUCTURE OF LEFT FOOT / Unknown 12/08/2023 7:51 AM CDT 12/08/2023 9:00 AM CDT Comment:2. Bone first metata rsal left foot Che Palomo [facility] MICROBIOLOGY [facility] [address] [address] * (ABNORMAL) TISSUE CULTURE:INCLUDES GRAM STAIN (12/08/2023 7:51 AM CDT) Final Report Positive Culture Few METHICILLIN RESISTANT Staphylococcus aureus (MRSA) isolated. 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 For susceptibility, see previous report on culture from wound culture collected 12/07/23. Rare Corynebacterium striatum group isolated. A member of the diphtheroid bacilli. (POS) [facility] Organism METHICILLIN RESISTANT STAPHYLOCOCCUS AUREUS (MRSA)(POS) [facility] Organism CORYNEBACTERIUM STRIATUM GROUP(POS) [facility] Gram Stain Report Positive Gram stain Rare PMN's seen. Rare gram positive cocci. Gram stain electronically reported to and acknowledged by: Dr. Niraj Lewis from OR at ??12/08/2023 10:09:09 by Jacklyn Easley MLS. (POS) [facility] Tissue FOOT STRUCTURE / Unknown 12/08/2023 7:51 AM CDT Comment:Add Aerobic Narrative [facility] - 12/10/2023 2:22 PM CDT Add Aerobic Che L Beth DPM LAB MICROBIOLOGY Performing Organization Address [facility] Co de Phone Number [facility] [address] [address] * FUNGUS CULTURE:INCLUDES SUHAS (12/08/2023 7:51 AM CDT) Final Report No fungus isolated. [facility] SUHAS Prep No fungal elements seen. [facility] Tissue FOOT STRUCTURE / Unknown 12/08/2023 7:51 AM CDT Comment:Add Aerobic Narrative [facility] - 01/05/2024 8:10 AM CDT Add Aerobic Che L Beth DPM LAB MICROBIOLOGY Performing Organization Address [facility] Co de Phone Number [facility] [address] [address] * ANAEROBE CULTURE (12/08/2023 7:51 AM CDT) Final Report No anaerobes isolated. [facility] Tissue FOOT STRUCTURE / Unknown 12/08/2023 7:51 AM CDT Comment:Add Aerobic Narrative [facility] - 12/14/2023 9:06 AM CDT Add Aerobic Che L Beth DPM LAB MICROBIOLOGY Performing Organization Address [facility] Co de Phone Number [facility] [address] [address] * (ABNORMAL) POC GLUCOSE (12/08/2023 7:22 AM CDT) POC Glucose 236(H) 70 - 100 mg/dL [facility] - POINT OF CARE Blood 12/08/2023 7:22 AM CDT Eusebio Vivar MD LABORATORY Performing Organization Address [facility]/ZIP Co de Phone Number [facility] [place] - POINT OF CARE [phone] [place] [address], * EXTRA TUBE - BLUE (12/07/2023 4:05 PM CDT) BLUE TUBE [facility] Comment:Blue top(Sodium citr ate) tubes are kept for 3 days from the collection date. Blood 12/07/2023 4:05 PM CDT 12/07/2023 4:24 PM CDT Eusebio Vivar MD LABORATORY Performing Organization Address [facility] Co de Phone Number [facility] [place] [address] * EXTRA TUBE - DARK GREEN (12/07/2023 4:05 PM CDT) DARK GREEN TUBE Stored [facility] Comment:Dark Green tubes (Li thium Heparin) are stored in the lab for 1 day from the collection date. Blood 12/07/2023 4:05 PM CDT 12/07/2023 4:24 PM CDT Eusebio Vivar MD LABORATORY Performing Organization Address [facility] Co de Phone Number [facility] [address] [address] * (ABNORMAL) ED CHEMISTRY LABS(NA,K,CL,CO2,GLU,CREAT,CA-IONIZED,ANION GAP) (12/07/2023 4:05 PM CDT) Sodium 139 135 - 148 mmol/L [facility] Chloride 97 92 - 108 mmol/L [facility] AnGap 15 8 - 16 mmol/L [facility] Glucose 284(H) 70 - 100 mg/dL [facility] ICA, Actual 4.89 4.40 - 5.20 mg/dL [facility] ICA, pH Corrected 4.74 4.40 - 5.20 mg/dL [facility] Creatinine 1.26(H) 0.70 - 1.25 mg/dL [facility] BICARB 26 22 - 26 mEq/L [facility] eGFR (2020 CKD-EPI) 72 >=60 ml/min/1.7 3m2 [facility] Comment: The estimated glomerular filtration rate (eGFR) was calculated using the CKD-EPI 2020 creatinine equation, which does not include race as a factor. This equation is validated in individuals 18 years of age and older, and eGFR is normalized to a body surface area of 1.73m^2. Potassium 4.5 3.5 - 5.3 mmol/L [facility] Blood 12/07/2023 4:05 PM CDT 12/07/2023 4:27 PM CDT Eusebio Vivar MD LABORATORY [facility] [address] [address] * (ABNORMAL) CBC WITH PLTS/AUTO DIFF (12/07/2023 4:05 PM CDT) WBC 9.80 4.00 - 10.00 k/cmm [facility] RBC 4.08(L) 4.60 - 6.00 m/cmm [facility] Hgb 11.2(L) 13.1 - 17.5 g/dL [facility] Hematocrit 34.7(L) 40.0 - 51.0 % [facility] MCV 85.0 80.0 - 100.0 fL [facility] MCH 27.5 25.0 - 32.0 pg [facility] MCHC 32.3 31.0 - 36.0 g/dL [facility] RDW 13.7 11.5 - 14.5 % [facility] Plt 324 150 - 400 k/cmm [facility] MPV 9.4 6.5 - 12.5 fL [facility] Automated Abs Neutrophil 5.37 1.70 - 6.50 k/cmm [facility] Comment:Preliminary ANC, Fin al Result to Follow Abs Immature Granulocyte 0.12(H) 0.00 - 0.09 k/cmm [facility] Comment:The Immature Granulo cyte Absolute count contains metamyelocytes and myelocytes. Abs Neutrophil 5.37 1.70 - 6.50 k/cmm [facility] Abs Lymphocyte 2.61 0.80 - 4.00 k/cmm [facility] Abs Monocyte 1.32(H) 0.20 - 1.00 k/cmm [facility] Abs Eosinophil 0.34 0.00 - 0.60 k/cmm [facility] Abs Basophil 0.04 0.00 - 0.20 k/cmm [facility] Blood 12/07/2023 4:05 PM CDT 12/07/2023 4:51 PM CDT Eusebio Vivar MD LABORATORY Performing Organization Address City/[facility]/ZIP Co de Phone Number [facility] [address] [address] * LACTATE (LACTIC ACID) (12/07/2023 4:05 PM CDT) Pathologist [facility] Lactate 2.1 0.7 - 2.1 mmol/L [facility] Blood 12/07/2023 4:05 PM CDT 12/07/2023 4:27 PM CDT Narrative [facility] - 12/07/2023 4:27 PM CDT Send specimen on ice! Eusebio Vivar MD LABORATORY Performing Organization Address [facility] Co de Phone Number [address] [address] * (ABNORMAL) C-REACTIVE PROTEIN (12/07/2023 4:05 PM CDT) C-Reactive Protein 82(H) <=4 mg/L [facility] Blood 12/07/2023 4:05 PM CDT 12/07/2023 4:51 PM CDT Eusebio Vivar MD LABORATORY Performing Organization Address [facility] Co de Phone Number [facility] [address] [address] * (ABNORMAL) SED RATE (ESR) (12/07/2023 4:05 PM CDT) Sed Rate 120(H) 2 - 10 mm/hr [facility] Blood 12/07/2023 4:05 PM CDT 12/07/2023 4:51 PM CDT Eusebio Vivar MD LABORATORY Performing Organization Address [facility] Co de Phone Number [facility] [address] [address] * BLOOD AEROBIC/ANAEROBIC CULTURE (12/07/2023 4:05 PM CDT) Final Report No growth after 5 days. [facility] Blood (Peripheral) 12/07/2023 4:05 PM CDT 12/07/2023 7:55 PM CDT Eusebio Vivar MD LAB MICROBIOLOGY Performing Organization Address [facility] de Phone Number [facility] [address] [phone] documented in this encounter Visit Diagnoses Diagnosis [...] (Due: Patch removed - Provider: JENNIFER NARAYANAN, [facility] - Comment: Time automatically adjusted [...]
--- OUTSIDE RECORDS SUMMARY | 2024-03-13 09:00 | XMS_ITS | Encounter Summary ---
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[facility]) Clint Barber MD [address] [address] Referral ID Status Reason Start Date Expiration Date V isits Requested Visits Authorized [id number] New Request 12/14/2023 12/14/2024 1 1 * Consult/Test/Treat (Routine) - New Request Specialty Diagnoses / Procedures Referred By Contac t Referred To Contact Diagnoses Soft tissue infection Igor Glover MD [address] [address] PATIENT CHOICE Referral ID Status Reason Start Date Expiration Date V isits Requested Visits Authorized [id number] New Request 12/12/2023 12/12/2024 1 1 * Consult/Test/Treat (Routine) - New Request Specialty Diagnoses / Procedures Referred By Contac t Referred To Contact Physical Therapy / PHYSICAL THERAPY Diagnoses Soft tissue infection Igor Glover MD [address] [address] PATIENT CHOICE Referral ID Status Reason Start Date Expiration Date V isits Requested Visits Authorized [id number] New Request 12/12/2023 12/12/2024 1 1 Reason for Visit * Auth/Cert (Routine) Specialty Diagnoses / Procedures Referred By Contmini t Referred To Contact SURGERY Diagnoses Other acute osteomyelitis of left foot ([facility]) Eusebio Vivar MD [address] [place] [address] Or P4 [address] [place] [address] Referral ID Status Reason Start Date Expiration Date Visits Re quested Visits Authorized [id number] 1 1 Encounter Details Date Type Department Care Team (Latest Contact Info) Description 12/07/2023 3:48 PM CDT - 12/14/2023 12:38 PM CDT Hospital Encounter [facility] Orthopaedic 701 [facility] G3.220 [place], [place] [id number] Eusebio Vivar MD [address] [place] [id number] Mirta Urena MD [address] [place] [address] [id number] Suzy Shafer PA-C [address] [place] [address] [phone] Igor Glover MD [address] [id number] Clint Barber MD [address] [place] [address] [phone] Other acute osteomyelitis of left foot ([facility]) Discharge Disposition: Discharged/transd to home (care [...] on discharge due to cost/transport issues at [place]. HOSPITAL COURSE BY PROBLEM: Acute osteomyelitis of [...] 12/12 - discussed with PharmD. HTN: Continue INTERVENTIONAL RADIOLOGIST amlodipine. Hyperlipidemia: Continue INTERVENTIONAL RADIOLOGIST rosuvastatin. Tobacco use disorder: Continue NRT. Hx of TBI. Malnutrition Weight: (!) 139.9 kg (308 lb 6.8 oz) Wt Change from Previous: 0 Kg Wt Change from Admit: 0 Kg % Wt Change from Adm: 0 % [place] Body Wt (IBW) Male (kg): 75.3 kg [...] Comments: Fax to Dr. Aretha Damon at [phone] PANEL HEPATIC FUNCTION Standing Status: Future Standing Exp. Date: 03/13/24 Order Comments: Fax to Dr. Aretha Damon at [phone] Scheduling Instructions: Hepatic Function Panel includes: Albumin, Alk Phos, ALT, AST, Direct Bilirubin, Total Bilirubin and Total Protein C-REACTIVE PROTEIN Standing Status: Future Standing Exp. Date: 03/13/24 Order Comments: Fax to Dr. Aretha Damon at [phone] CREATININE, SERUM Standing Status: Future Standing Exp. Date: 03/13/24 Order Comments: Fax to Dr. Aretha Damon at [phone] Referral to Physical Therapy Referral Priority: Routine [...] hesitate to call the Hyperbaric Department at [phone] during clinic hours or page international editorial producer staff with any updates, questions, or concerns. Associated attestation - Douglas Morrsi II, MD - 12/14/2023 3:50 PM CDT [...] is medically ready for discharge back to [facility] since 12/11. Spoke to Tabatha at [facility] today ([phone]) who reported that the patient was not [...] of patient departure: 12/13/2023 @1530 Destination: [facility] [place], [place] Type of ride: wheelchair Transportation vendor of ride: [facility] [phone] * If this ride needs to be [...] Clinical Coordinators will be informed via a TelTeeBeeDee page. PCS form was completed in Progress [...] infection Attending provider: Igor Glover MD Insurance: [facility] Secondary insurance: [place] [employer] Height: Height: 180.3 cm (5' [...] hesitate to call the Hyperbaric Department at [phone] during clinic hours or page international editorial producer staff with any updates, questions, or concerns. [...] 12/12 - discussed with PharmD. HTN: Continue INTERVENTIONAL RADIOLOGIST amlodipine. Hyperlipidemia: Continue INTERVENTIONAL RADIOLOGIST rosuvastatin. Tobacco use disorder: Continue NRT. Hx of TBI. FEN: Regular consistent carb diet. Code status: Full code. VTE prophylaxis: VTE prophylaxis with lovenox to start 12/10. Lines: No central line. No mujica. Discharge planning: Discharg to [facility] in [place] when they're able to accept him back.Possibly [...] Services Address Phone Fax Patient Preferred [facility] Pending - No Request Sent N/A [id number] [facility] [phone] -- Narcisa Tobar LGSW, 12/12/2023 9:50 AM * Aretha Damon MD - 12/12/2023 8:53 AM CDT ID PROGRESS NOTE Stephanie Low 1980 male [id number] ASSESSMENT: MRSA left foot osteomyelitis S/p I&D [...] 12/12 - discussed with PharmD. HTN: Continue INTERVENTIONAL RADIOLOGIST amlodipine. Hyperlipidemia: Continue INTERVENTIONAL RADIOLOGIST rosuvastatin. Tobacco use disorder: Continue NRT. Hx of TBI. FEN: Regular consistent carb diet. Code status: Full code. VTE prophylaxis: VTE prophylaxis with lovenox to start 12/10. Lines: No central line. No mujica. Discharge planning: Discharg to [facility] in [place] when they're able to accept him back.Possibly [...] Glover MD, 12/11/2023 7:34 PM Page via Oyster * Eusebio Perez, PharmD - 12/11/2023 3:38 [...] recent) Eusebio Perez, Jaxon 12/11/2023 19:22 Pager: ([facility]) * Lizbeth Cavazos LICSW - 12/11/2023 2:41 [...] sessions (1st today), and has [facility] Medicare Advantage (which requires prior authorization). GARY advised this likely cannot be resolved during the weekend due to the barriers listed above. Follow up needed: GARY will try to problem solve if Cruz Aguiar calls back, if not weekday team to follow up on plan for discharge. RAJ Cadena, PLACIDO Inpatient Truck Driver Flatbed - Casual (weekends only) Available via [employer] Lizbeth Cavazos LICSW, 12/11/2023 2:41 PM Addendum [...] hesitate to call the Hyperbaric Department at [phone] during clinic hours or page international editorial producer staff with any updates, questions, or concerns. [...] Schizophrenia History of TBI --Patient is own [facility] RECOMMENDATIONS: 1. Dressing: Dressed with Betadine 4 [...] continue to follow while admitted. Please page international editorial producer resident with questions. Patient was discussed with international editorial producer staff Interval history: Patient seen and evaluated [...] 12/12 - discussed with PharmD. HTN: Continue INTERVENTIONAL RADIOLOGIST amlodipine. Hyperlipidemia: Continue INTERVENTIONAL RADIOLOGIST rosuvastatin. Tobacco use disorder: Continue NRT. Hx of TBI. FEN: Regular consistent carb diet. Code status: Full code. VTE prophylaxis: VTE prophylaxis with lovenox to start 12/10. Lines: No central line. No mujica. Discharge planning: Discharged to [facility] on 11/24 after admission for Demar's [...] Glover MD, 12/10/2023 2:18 PM Page via Oyster * Denise Esteves RN - 12/10/2023 11:57 AM CDT Clinical Coordinator Note: 12/10/23 1156 Rapid Rounds Attendance Physician;Charge nurse;car rental agency manager;poultry offal worker;Bedside nurse Expected Discharge Disposition SNF Today [...] to discharge. Denise Esteves Inpatient Clinical Coordinator [facility] Office: [phone] * Suzy Patino DPM - 12/10/2023 8:42 [...] Schizophrenia History of TBI --Patient is own [facility] RECOMMENDATIONS: 1. Dressing: Dressed in OR with [...] continue to follow while admitted. Please page international editorial producer resident with questions. Patient was discussed with international editorial producer staff Interval history: Patient seen resting comfortably [...] 12/12 - discussed with PharmD. HTN: Continue INTERVENTIONAL RADIOLOGIST amlodipine. Hyperlipidemia: Continue INTERVENTIONAL RADIOLOGIST rosuvastatin. Tobacco use disorder: Continue NRT. Hx of TBI. FEN: Regular consistent carb diet. Code status: Full code. VTE prophylaxis: VTE prophylaxis with hep to start 12/08. Lines: No central line. No mujica. Discharge planning: Discharged to [facility] on 11/24 after admission for Demar's [...] Glover MD, 12/09/2023 10:33 PM Page via Oyster * David Mancuso, PharmD - 12/09/2023 3:54 [...] 12/09/2023 Expected DC Date: 12/10/2023 Social Information Special Agent In Charge Used: None needed Decision Maker at Admission: Self Living Situation: retirement (see comment) Patient Identified Support System: sister, significant other Services Receiving: Waivered services (see comment) Complex Medical Needs: Other (see comment) (wound care) Transportation Used for Discharge: stretcher Safety Concerns: None Behavioral Health Concerns: None Patient Family Goals Patient's Discharge Goal: back to [facility] Family's Discharge Goal: n/a Plan/Interventions Expected Discharge Disposition: Halfway Facility Patient Information Verification Verified demographic information, including SSN, Next of Kin, and Guardianship: Yes Verified PCP: Yes If post-acute placement is needed, have vaccination status needs been addressed?: Not applicable Risks for Readmission: None Summary of pertinent information: Patient admitted from [facility] with concern for a left great to osteomyelitis that was resected 12/07. 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 Have a call out to [facility] to confirm bed hold ([phone]). Spoke to staff at his [facility] (Minnie [phone]) to also update and confirm that he can return there when ultimately. Patient currently has started on HBO, this may be problematic with returning to [facility]. Emily Hannah RN, 12/09/2023 1:49 PM [...] Schizophrenia History of TBI --Patient is own [facility] RECOMMENDATIONS: 1. Dressing: Dressed with Vashe soaked [...] continue to follow while inpatient Please page international editorial producer resident with questions. Patient was discussed with international editorial producer staff Interval history: Patient seen and evaluated [...] Schizophrenia History of TBI --Patient is own [facility] RECOMMENDATIONS: 1. Dressing: Dressed in operating room [...] continue to follow while inpatient Please page international editorial producer resident with questions. Patient was seen with international editorial producer staff, Dr. Palomo Interval history: Patient is [...] osteomyelitis of leftfoot ([facility]) . Patient: alert, oriented to person, [...] informed of Patient Valuables and Belongings Policy (#[id number]): Policy reviewed - patient/family/designee has indicated that [...] 12/12 - discussed with PharmD. HTN: Continue INTERVENTIONAL RADIOLOGIST amlodipine. Hyperlipidemia: Continue INTERVENTIONAL RADIOLOGIST rosuvastatin. Tobacco use disorder: Continue NRT. Hx of TBI. FEN: Regular consistent carb diet. Code status: Full code. VTE prophylaxis: VTE prophylaxis with hep to start 12/08. Lines: No central line. No mujica. 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 [...] prophylaxis contraindicated Does not apply protocol Mirta Uerna MD vancomycin (VANCOCIN) 2,750 mg in NaCl [...] -F/up cultures currently in process -NPO at NM, holding VTE ppx -AM BMP, CBC, CRP, ESR Chronic / Stable / Resolved / Ruled Out #T2DM: A1c 6.8% 07/2023. Reduce INTERVENTIONAL RADIOLOGIST lantus to 15 U while NPO, Novolog 1U/CHO + LDSSI. Rechecking A1c. #HTN: INTERVENTIONAL RADIOLOGIST amlodipine 10 mg daily #HLD: INTERVENTIONAL RADIOLOGIST statin #Paranoid schizophrenia: INTERVENTIONAL RADIOLOGIST prazosin #HILL: INTERVENTIONAL RADIOLOGIST escitalopram 20 mg daily #Tobacco use disorder: [...] including pre-visit review of separately obtained history, [id number] interaction performing medically appropriate physical exam, patientcounseling/education, [...] wound healing. Message sent to primary team. [facility] Nursing follow up: Appreciate the opportunity to consult on this patient, Wound Ostomy Continence Services will sign off at this time. Please place additional 'Wound Consult' if wanting further assessment for this patient. Staff to continue to follow skin injury bundle. Escalate concerns to WOCN through additional consult or to the provider when barriers are identified. WOCN available Wednesday through Wednesday on [employer] or [phone] [facility] Nursing attempts to see patients in person [...] on service at PharmD General Weekend Days ([employer]) or [phone]. If no response within needed timeframe, please contact central pharmacy via phone at [phone]. Planned discharge medications are: Medication List Medications [...] NEW CONSULT NOTE Stephanie Low 1980 male [id number] REASON FOR CONSULT: I was asked to [...] bearing restrictions, otherwise bed to chair only INTERVENTIONAL RADIOLOGIST Appropriate: No (more OR) Participated in goal setting and treatment planning: Patient Agrees with goals and treatment plan: Question patient's ability to understand. Gracia Arredondo, PT 12/10/2023 Pager: [facility] PT Department * David Cortes MD - [...] of left foot ([facility]) Past Surgical History: Procedure Laterality Date TOE [...] not hesitate to call the department at [phone] during clinic hours ([phone] [phone]) or page the international editorial producer HYPERBARIC staff with any questions or concerns. [...] allowing us to participate in Stephanie Low [facility]. [place] [facility]: [phone]. David Cortes MD * Angela Cardenas CWOCN - 12/08/2023 3:00 PM CDTAssociated Order(s): CONSULT TO WOUND NURSE Images from the original note were not included. [facility] Nursing consulted by nursing for perineal wounds. [...] wound healing. Message sent to primary team. [facility] Nursing follow up: later this week after surgery sees Staff to continue to follow skin injury bundle. Escalate concerns to WOCN through additional consult or to the provider when barriers are identified. WOCN available Wednesday through Wednesday on [employer] or [phone] [facility] Nursing attempts to see patients in person [...] Schizophrenia History of TBI --Patient is own [facility] RECOMMENDATIONS: 1. Dressing: Daily dressing changes with [...] continue to follow while inpatient Please page international editorial producer resident with questions. Patient was seen with international editorial producer staff, Dr. Palomo CHIEF COMPLAINT: Left foot [...] OR Date: 12/10/2023 Surgeon: Suzy Patino DPM Cable Way Operator(s): Samina Singletary DPM PGY3 Pre-Op Diagnosis: [...] 1980 Sex: male Surgeon: Che Palomo DPM Cable Way Operator(s): Niraj Lewis DPM PGY-3 Jf Sky MS-4 [...] 2023 2242 Started nicotine gum PRN Started INTERVENTIONAL RADIOLOGIST glargine and lispro The patient remained in the emergency department through the end of my shift. Their care was signedout [id number] with the oncoming provider. Dx, DDx, Assessment and Plan was discussed with Attending Emergency Medicine Physician. Final Clinical Impression 1. Other acute osteomyelitis of left foot ([facility]) Disposition and Plan Signed out to [...] in real time. Please contact me via eLama staff message if you note any errors [...] PM CDT Emergency Department Physician Note [facility] HISTORY Stephanie Low is a 43 [...] of left foot ([facility]) DISPOSITION & PLAN Patient remained in [...] Toe Head to Toe Assessment Shift Summary [id number] Alert and oriented x3, unsure of the [...] Physical Therapy Inpatient Discharge Summary Stephanie Low [id number] Diagnosis Patient Active Problem List Diagnosis Fourniers [...] to Toe Assessment Shift Summary Shift Summary [id number] Pt alert oriented and able to make [...] Toe Head to Toe Assessment Shift Summary [id number] Daily dressing change done per order, reported [...] Toe Head to Toe Assessment Shift Summary [id number] Alert and oriented x 4, able to [...] Toe Head to Toe Assessment Shift Summary [id number] Patient is alert and oriented x 4,RA.Vitals [...] amputation RLE - amputation Comments: R amputation INTERVENTIONAL RADIOLOGIST Integumentary Assessment Within Defined Limits except for: [...] Toe Head to Toe Assessment Shift Summary [id number] Patient is alert and oriented x 4,RA.Vitals [...] 12/10/2023 6:30 PM PGY-1 Green Surgery Pager: [phone] * Nursing Assessment - May Torres RN [...] DPM - 12/10/2023 11:06 AM CDT [facility] Immediate Post Operative Note Note written: [...] Toe Head to Toe Assessment Shift Summary [id number] Alert and oriented x3, unsure of the [...] Head to Toe Assessment Shift Summary Night [id number] PT is AO x4. Able to make [...] Dennis RN - 12/08/2023 2:28 PM CDTSummary: AUTOMOBILE SEAT COVER INSTALLERmedical case manager PACU to IP Nursing Handoff [...] Comments: RN: Cheryl Dennis RN Extension #: [id number] * Op Note Immediate - Niraj Lewis DPM - 12/08/2023 7:48 AM CDT [facility] Immediate Post Operative Note Note written: [...] of left foot ([facility]) Eusebio Vivar MD, 12/08/2023 12:16 AM * Interval Note Provider - Shayna Schreiber MD - 12/07/2023 8:53 PM CDT Handoff Communication Note for Hospital Admission Verbal handoff received from Dr. Drummond in [facility]. Patient Class: Inpatient Cardiac Monitoring: Not [...] designation above. Please page the MOD via TelTeeBeeDee with clinical updates or status changes. Note [...] of left foot ([facility]) REVISION, AMPUTATION SITE, LOWER EXTREMITY Urgent [...] POC Glucose 255(H) 70 - 100 mg/dL [facility] POINT OF CARE Blood 12/14/2023 11:2 9 AM CDT Eusebio Vivar MD LABORATORY Performing Organization Address [facility] de Phone Number [facility] [address] [id number], [place] * (ABNORMAL) POC GLUCOSE (12/14/2023 6:32 AM CDT) POC Glucose 186(H) 70 - 100 mg/dL [facility] POINT OF [facility] Blood 12/14/2023 6:32 AM CDT Eusebio Vivar MD LABORATORY Performing Organization Address [facility] de Phone Number [facility] [address] [place] [address], [place] * (ABNORMAL) POC GLUCOSE (12/13/2023 9:05 PM CDT) POC Glucose 175(H) 70 - 100 mg/dL [facility] Blood 12/13/2023 9:05 PM CDT Eusebio Vivar MD LABORATORY Performing Organization Address [facility] de Phone Number [facility] [address] [id number], [place] * VANCOMYCIN LEVEL (12/13/2023 5:24 PM [...] or trough:->Trough Eusebio J Ana PharmD LABORATORY [facility] [address] [place] [address] * (ABNORMAL) POC GLUCOSE (12/13/2023 4:00 PM CDT) POC Glucose 153(H) 70 - 100 mg/dL [facility] POINT OF CARE Blood 12/13/2023 4:00 PM CDT Eusebio Vivar MD LABORATORY Performing Organization Address City/[facility]/ZIP Co de Phone Number [facility] POINT OF CARE [address] [place] [address], [place] * (ABNORMAL) POC GLUCOSE (12/13/2023 11:47 AM CDT) POC Glucose 271(H) 70 - 100 mg/dL [facility] POINT OF CARE Blood 12/13/2023 11:4 7 AM CDT Eusebio Vivar MD LABORATORY Performing Organization Address [facility] Co de Phone Number [facility] [address] [place] [address], [place] * (ABNORMAL) POC GLUCOSE (12/13/2023 6:35 AM CDT) POC Glucose 204(H) 70 - 100 mg/dL [facility] POINT OF CARE Blood 12/13/2023 6:35 AM CDT Eusebio Vivar MD LABORATORY Performing Organization Address City/[facility] Co de Phone Number [facility] POINT OF CARE [address] [place] [address], [place] * (ABNORMAL) POC GLUCOSE (12/12/2023 8:54 PM CDT) POC Glucose 170(H) 70 - 100 mg/dL [facility] POINT OF CARE Blood 12/12/2023 8:54 PM CDT Eusebio Vivar MD LABORATORY [facility] POINT OF CARE [address] [place] [address], [place] * (ABNORMAL) POC GLUCOSE (12/12/2023 4:10 PM CDT) POC Glucose 252(H) 70 - 100 mg/dL [facility] POINT OF CARE Blood 12/12/2023 4:10 PM CDT Eusebio Vivar MD LABORATORY Performing Organization Address City/[facility]/ZIP Co de Phone Number [facility] POINT OF CARE [address] [place] [address], [place] * (ABNORMAL) POC GLUCOSE (12/12/2023 11:07 AM CDT) POC Glucose 200(H) 70 - 100 mg/dL [facility] POINT OF CARE Blood 12/12/2023 11:0 7 AM CDT Eusebio Vivar MD LABORATORY Performing Organization Address [facility] Co de Phone Number [facility] [address] [place] [address], [place] * (ABNORMAL) POC GLUCOSE (12/12/2023 6:42 AM CDT) POC Glucose 185(H) 70 - 100 mg/dL [facility] POINT OF CARE Blood 12/12/2023 6:42 AM CDT Eusebio Vivar MD LABORATORY Performing Organization Address City/[facility]/ZIP Co de Phone Number [facility] POINT OF CARE [address] [place] [address], [place] * (ABNORMAL) POC GLUCOSE (12/11/2023 9:10 PM CDT) POC Glucose 226(H) 70 - 100 mg/dL [facility] POINT OF CARE Blood 12/11/2023 9:10 PM CDT Eusebio Vivar MD LABORATORY [facility] POINT [facility] CARE [address] [place] [address], * VANCOMYCIN LEVEL (12/11/2023 5:28 PM CDT) Vancomycin 19.6 mcg/mL [facility] Comment:Expected Range (Trou gh): 10-20 mcg/ml Blood 12/11/2023 5:28 PM CDT 12/11/2023 5:37 PM CDT Narrative [facility] - 12/11/2023 6:46 PM CDT Peak or trough:->Trough Igor Glover MD LABORATORY [facility] [address] [place] [address] * (ABNORMAL) POC GLUCOSE (12/11/2023 4:13 PM CDT) POC Glucose 173(H) 70 - 100 mg/dL [facility] POINT OF CARE Blood 12/11/2023 4:13 PM CDT Eusebio Vivar MD LABORATORY Performing Organization Address City/[facility]/ZIP Co de Phone Number [facility] [address] [place] [address], [place] * (ABNORMAL) POC GLUCOSE (12/11/2023 11:43 AM CDT) POC Glucose 283(H) 70 - 100 mg/dL [facility] Blood 12/11/2023 11:4 3 AM CDT Eusebio Vivar MD LABORATORY [facility] [address] [place] [address], [place] * (ABNORMAL) POC GLUCOSE (12/11/2023 10:28 AM CDT) POC Glucose 198(H) 70 - 100 mg/dL [facility] POINT OF CARE Blood 12/11/2023 10:2 8 AM CDT Eusebio Vivar MD LABORATORY Performing Organization Address [facility] Co de Phone Number [facility] POINT OF CARE [address] [place], [place] [phone], * (ABNORMAL) POC GLUCOSE (12/11/2023 6:41 AM CDT) [facility] POC Glucose 173(H) 70 - 100 mg/dL [facility] POINT OF CARE Blood 12/11/2023 6:41 AM CDT Eusebio Vivar MD LABORATORY Performing Organization Address [facility] de Phone Number [facility] POINT OF [facility] [address] [place], [place] [phone], [place] * (ABNORMAL) CBC WITH PLTS/AUTO DIFF (12/11/2023 5:50 AM CDT) [facility] WBC 8.72 4.00 - 10.00 k/cmm SURGICAL [...] Igor Glover MD LABORATORY Performing Organization Address City/[facility]/ZIP Co de Phone Number [facility] [address] [address] * (ABNORMAL) PANEL BASIC METABOLIC (BMP) (12/11/2023 [...] Igor Glover MD LABORATORY Performing Organization Address City/[facility]/ZIP Co de Phone Number [facility] [address] [address] * (ABNORMAL) POC GLUCOSE (12/10/2023 9:03 PM CDT) POC Glucose 206(H) 70 - 100 mg/dL [facility] POINT OF CARE Blood 12/10/2023 9:03 PM CDT Eusebio Vivar MD LABORATORY Performing Organization Address [facility] de Phone Number [facility] POINT OF CARE [address] [place] [address], [place] * (ABNORMAL) POC GLUCOSE (12/10/2023 4:16 PM CDT) POC Glucose 341(H) 70 - 100 mg/dL [facility] POINT OF CARE Blood 12/10/2023 4:16 PM CDT Eusebio Vivar MD LABORATORY Performing Organization Address [facility] de Phone Number [facility] POINT OF [facility] [address] [place] [address], [place] * XR CHEST 2 VIEWS PA [...] POC Glucose 194(H) 70 - 100 mg/dL [facility] Blood 12/10/2023 12:0 9 PM CDT Eusebio Vivar MD LABORATORY [facility] [address] [place] [address], * SURGICAL PATHOLOGY (12/10/2023 11:07 AM CDT) SURG PATH FINAL ?Surgical Pathology Report Collection Date: ?12/10/2023 11:07 CDT ? Ordering Physician: ? SUZY PATINO Received Date: ?12/10/2023 12:07 CDT ? Accession Number: ? [id number] ? Surgical Pathology Final Report Specimen Type: [...] clinical information: Suzy Patino DPM LAB PATHOLOGY [facility] [address] [place] [address] * (ABNORMAL) POC GLUCOSE (12/10/2023 6:16 AM CDT) POC Glucose 228(H) 70 - 100 mg/dL [facility] POINT OF CARE Blood 12/10/2023 6:16 AM CDT Eusebio Vivar MD LABORATORY [facility] [address] [place] [address], * (ABNORMAL) CBC WITH PLTS/AUTO DIFF (12/10/2023 5:06 AM CDT) Pathologist [facility] WBC 8.35 4.00 - 10.00 k/cmm SURGICAL [...] Igor Glover MD LABORATORY Performing Organization Address [facility] Co de Phone Number [facility] [address] [address] * (ABNORMAL) PANEL BASIC METABOLIC (BMP) (12/10/2023 [...] Igor Glover MD LABORATORY Performing Organization Address [facility] Co de Phone Number [facility] [address] [address] * (ABNORMAL) POC GLUCOSE (12/09/2023 9:18 PM CDT) POC Glucose 204(H) 70 - 100 mg/dL [facility] POINT OF CARE Blood 12/09/2023 9:18 PM CDT Eusebio Vivar MD LABORATORY Performing Organization Address [facility] Co de Phone Number [facility] POINT OF CARE [address] [place] [address], * (ABNORMAL) PANEL BASIC METABOLIC (BMP) (12/09/2023 [...] Igor Glover MD LABORATORY Performing Organization Address City/[facility]/ZIP Co de Phone Number [facility] [address] [address] * VANCOMYCIN LEVEL (12/09/2023 5:56 PM CDT) Vancomycin 22.0 mcg/mL [facility] Comment:Expected Range (Trou gh): 10-20 mcg/ml Blood 12/09/2023 5:56 PM CDT 12/09/2023 6:26 PM CDT Narrative [facility] - 12/09/2023 8:14 PM CDT Peak or trough:->Trough Gwen Gamez PharmD LABORATORY Performing Organization Address [facility] Co de Phone Number [facility] [address] [place] [address] * (ABNORMAL) POC GLUCOSE (12/09/2023 4:08 PM CDT) POC Glucose 231(H) 70 - 100 mg/dL [facility] POINT OF [facility] Blood 12/09/2023 4:08 PM CDT Eusebio Vivar MD LABORATORY Performing Organization Address [facility] de Phone Number [address] [address], [place] * (ABNORMAL) POC GLUCOSE (12/09/2023 11:13 AM CDT) POC Glucose 282(H) 70 - 100 mg/dL [facility] Blood 12/09/2023 11:1 3 AM CDT Eusebio Vivar MD LABORATORY Performing Organization Address [facility] de Phone Number [address] [address], [place] * HBO TCO2 MEASUREMENT COMPLETE (12/09/2023 [...] Reg 2002; 10:198-207. Bridget QUIÑONEZ et al. [facility] 2009, Vol. 36(1). ? [place] [...] POC Glucose 198(H) 70 - 100 mg/dL [facility] Blood 12/09/2023 6:43 AM CDT Eusebio Vivar MD LABORATORY Performing Organization Address [facility] Co de Phone Number [facility] [address] [place] [address], * (ABNORMAL) POC GLUCOSE (12/08/2023 9:10 PM CDT) POC Glucose 268(H) 70 - 100 mg/dL [facility] Blood 12/08/2023 9:10 PM CDT Eusebio Vivar MD LABORATORY Performing Organization Address [facility] Co de Phone Number [facility] [address] [place] [address], * (ABNORMAL) SED RATE (ESR) (12/08/2023 4:47 PM CDT) Sed Rate 120(H) 2 - 10 mm/hr [facility] Blood 12/08/2023 4:47 PM CDT 12/08/2023 5:07 PM CDT Suzy Shafer PA-C LABORATORY Performing Organization Address [facility]/ZIP Co de Phone Number [facility] [address] [address] * (ABNORMAL) PANEL BASIC METABOLIC (BMP) (12/08/2023 [...] Suzy Shafer PA-C LABORATORY Performing Organization Address [facility]/ZIP Co de Phone Number [facility] [address] [address] * (ABNORMAL) GLYCOSYLATED HGB - A1C (12/08/2023 [...] [facility] [address] [address] * (ABNORMAL) CBC WITH PLATELET (12/08/2023 4:47 [...] Suzy Shafer PA-C LABORATORY Performing Organization Address [facility]/ZIP Co de Phone Number [address] [address] * (ABNORMAL) C-REACTIVE PROTEIN (12/08/2023 4:47 PM CDT) C-Reactive Protein 77(H) <=4 mg/L [facility] Blood 12/08/2023 4:47 PM CDT 12/08/2023 5:07 PM CDT Suzy Shafer PA-C LABORATORY Performing Organization Address [facility] Co de Phone Number [place] [phone] * (ABNORMAL) POC GLUCOSE (12/08/2023 4:20 PM CDT) POC Glucose 204(H) 70 - 100 mg/dL [facility] Blood 12/08/2023 4:20 PM CDT Eusebio Vivar MD LABORATORY Performing Organization Address [facility] Co de Phone Number [facility] POINT OF [place] [phone], [place] * (ABNORMAL) POC GLUCOSE (12/08/2023 12:35 PM CDT) POC Glucose 227(H) 70 - 100 mg/dL [facility] Blood 12/08/2023 12:3 5 PM CDT Eusebio Vivar MD LABORATORY Performing Organization Address [facility]/ZIP Co de Phone Number [facility] [address] [place] [address], [place] * (ABNORMAL) POC GLUCOSE (12/08/2023 10:02 AM CDT) POC Glucose 263(H) 70 - 100 mg/dL [facility] Blood 12/08/2023 10:0 2 AM CDT Eusebio Vivar MD LABORATORY [facility] [address] [place] [address], * XR FOOT LEFT 3 V AP/OBL/LAT* [...] POC Glucose 214(H) 70 - 100 mg/dL [facility] Blood 12/08/2023 8:32 AM CDT Eusebio Vivar MD LABORATORY [facility] [address] [place] [address], * SURGICAL PATHOLOGY (12/08/2023 7:56 AM CDT) SURG PATH FINAL ?Surgical Pathology Report Collection Date: ?12/08/2023 07:56 CDT ?Ordering Physician: ? CHE PALOMO Received Date: ?12/08/2023 08:41 CDT ?Accession Number: ? [id number] ? Surgical Pathology Final Report Specimen Type: [...] specimen reveals a yellow, trabeculated cut surface. Switchboard And Control Room Operator sections are submitted following decalcification as [...] clinical information: evaluate cut side for osteomyelitis Ceh Palomo [facility] LAB PATHOLOGY Performing Organization Address [facility] de Phone Number [address] [address] * FUNGUS CULTURE:INCLUDES SUHAS (12/08/2023 7:51 AM CDT) Final Report No fungus isolated. [facility] SUHAS Prep No fungal elements seen. [facility] Bone STRUCTURE OF LEFT FOOT / Unknown 12/08/2023 7:51 AM CDT 12/08/2023 9:00 AM CDT Comment:2. Bone first metata rsal left foot Che Palomo [facility] LAB MICROBIOLOGY Performing Organization Address [facility] Co de Phone Number [address] [address] * ANAEROBE CULTURE (12/08/2023 7:51 AM CDT) Final Report No anaerobes isolated. [facility] Bone STRUCTURE OF LEFT FOOT / Unknown 12/08/2023 7:51 AM CDT 12/08/2023 9:00 AM CDT Comment:2. Bone first metata rsal left foot Che L Beth [facility] LAB MICROBIOLOGY Performing Organization Address [facility] Co de Phone Number [facility] [address] [address] * (ABNORMAL) TISSUE CULTURE:INCLUDES GRAM STAIN (12/08/2023 [...] to and acknowledged by: Dr. Igor Glover [facility] 12/09/2023 12:48:27. Elizabeth Schwartz MLS. (POS) [facility] Bone STRUCTURE OF LEFT FOOT / Unknown 12/08/2023 7:51 AM CDT 12/08/2023 9:00 AM CDT Comment:2. Bone first metata rsal left foot Che Palomo DP LAB MICROBIOLOGY Performing Organization Address [facility] Co de Phone Number [facility] [address] [address] * (ABNORMAL) TISSUE CULTURE:INCLUDES GRAM STAIN (12/08/2023 [...] Mullent DPM LAB MICROBIOLOGY Performing Organization Address [facility] de Phone Number [address] [address] * FUNGUS CULTURE:INCLUDES SUHAS (12/08/2023 7:51 AM [...] Mullent DPM LAB MICROBIOLOGY Performing Organization Address [facility] de Phone Number [facility] [address] [address] * ANAEROBE CULTURE (12/08/2023 7:51 AM CDT) Final Report No anaerobes isolated. [facility] Tissue FOOT STRUCTURE / Unknown 12/08/2023 7:51 AM CDT Comment:Add Aerobic Narrative [facility] - 12/14/2023 9:06 AM CDT Add Aerobic Che L Beth DPM LAB MICROBIOLOGY Performing Organization Address [facility]/State/ZIP Co de Phone Number [facility] [address] [address] * (ABNORMAL) POC GLUCOSE (12/08/2023 7:22 AM CDT) [facility] POC Glucose 236(H) 70 - 100 mg/dL [facility] POINT OF CARE Blood 12/08/2023 7:22 AM CDT Eusebio Vivar MD LABORATORY Performing Organization Address [facility]/ZIP Co de Phone Number [facility] POINT OF CARE [address] [place] [address], * EXTRA TUBE - BLUE (12/07/2023 4:05 PM CDT) Pathologist [facility] BLUE TUBE [facility] Comment:Blue top(Sodium citr ate) tubes are kept for 3 days from the collection date. Blood 12/07/2023 4:05 PM CDT 12/07/2023 4:24 PM CDT Eusebio Vivar MD LABORATORY Performing Organization Address [facility] Co de Phone Number [facility] [address] [address] * EXTRA TUBE - DARK GREEN (12/07/2023 4:05 PM CDT) [facility] DARK GREEN TUBE Stored [facility] Comment:Dark Green tubes (Li thium Heparin) are stored in the lab for 1 day from the collection date. Blood 12/07/2023 4:05 PM CDT 12/07/2023 4:24 PM CDT Eusebio Vivar MD LABORATORY Performing Organization Address [facility] Co de Phone Number [facility] [address] [address] * (ABNORMAL) ED CHEMISTRY LABS(NA,K,CL,CO2,GLU,CREAT,CA-IONIZED,ANION GAP) (12/07/2023 4:05 PM CDT) [facility] Sodium 139 135 - 148 mmol/L [facility] [address] [place] [address] * (ABNORMAL) CBC WITH PLTS/AUTO DIFF (12/07/2023 [...] Eusebio Vivar MD LABORATORY Performing Organization Address [facility] Co de Phone Number [address] [address] * LACTATE (LACTIC ACID) (12/07/2023 4:05 PM CDT) Pathologist [facility] Lactate 2.1 0.7 - 2.1 mmol/L [facility] Blood 12/07/2023 4:05 PM CDT 12/07/2023 4:27 PM CDT Narrative [facility] - 12/07/2023 4:27 PM CDT Send specimen on ice! Eusebio Vivar MD LABORATORY [address] [address] * (ABNORMAL) C-REACTIVE PROTEIN (12/07/2023 4:05 PM CDT) C-Reactive Protein 82(H) <=4 mg/L [facility] Blood 12/07/2023 4:05 PM CDT 12/07/2023 4:51 PM CDT Eusebio Vivar MD LABORATORY Performing Organization Address [facility] Co de Phone Number [facility] [address] [address] * (ABNORMAL) SED RATE (ESR) (12/07/2023 4:05 PM CDT) Sed Rate 120(H) 2 - 10 mm/hr [facility] Blood 12/07/2023 4:05 PM CDT 12/07/2023 4:51 PM CDT Eusebio Vivar MD LABORATORY Performing Organization Address [facility] Co de Phone Number [address] [address] * BLOOD AEROBIC/ANAEROBIC CULTURE (12/07/2023 4:05 PM CDT) Final Report No growth after 5 days. [facility] Blood (Peripheral) 12/07/2023 4:05 PM CDT 12/07/2023 7:55 PM CDT Eusebio Vivar MD LAB MICROBIOLOGY Performing Organization Address [facility] de Phone Number [address] [address] documented in this encounter Visit Diagnoses Diagnosis [...] removed - Provider: JENNIFER NARAYANAN, [facility] - Comment: Time automatically adjusted from order [...] - Comment: HBO)[phone] (Given - Provider: Natasha Viavr, RN) [phone] (Given - Provider: Dawood Sargent [...]
--- OUTSIDE RECORDS SUMMARY | 2024-03-13 09:01 | XMS_ITS | Encounter Summary ---
Author Organization [facility] Address [address] [place] [address] Phone Care Team Providers Care Roll Mechanic Name Role Phone Unavailable Primary Care Provider Unavailabl e Reason for Visit * Auth/Cert (Routine) Specialty Diagnoses / Procedures Referred By Katherine tidwell Referred To Contact SURGERY Diagnoses Other acute osteomyelitis of left foot ([facility]) Eusebio Vivar MD [address] [place] [address] Or P4 [address] [place] [address] Referral ID Status Reason Start Date Expiration Date Visits Re quested Visits Authorized [id number] 1 1 Encounter Details Date Type Department Care Team ([facility] st Contact Info) Description 12/08/2023 7:35 AM CDT - 12/08/2023 9:13 AM CDT Surgery OR P4 [address] [place] [address] Che Palomo DPM [address] [address] PARTIAL AMPUTATION FOOT Social History [...] wound and tissue cultures - NWB to [facility] - F/U podiatry clinic in a [...] 12/12 - discussed with PharmD. HTN: Continue HEAVY EQUIPMENT TECHNICIAN amlodipine. Hyperlipidemia: Continue HEAVY EQUIPMENT TECHNICIAN rosuvastatin. Tobacco use disorder: Continue NRT. Hx of TBI. Malnutrition Weight: (!) 139.9 kg (308 lb 6.8 oz) Wt Change from Previous: 0 Kg Wt Change from Admit: 0 Kg % Wt Change from Adm: 0 % Blair Body Wt (IBW) Male (kg): 75.3 kg [...] Comments: Fax to Dr. Aretha Damon at [phone] PANEL HEPATIC FUNCTION Standing Status: Future Standing Exp. Date: 03/13/24 Order Comments: Fax to Dr. Aretha Damon at [phone] Scheduling Instructions: Hepatic Function Panel includes: Albumin, Alk Phos, ALT, AST, Direct Bilirubin, Total Bilirubin and Total Protein C-REACTIVE PROTEIN Standing Status: Future Standing Exp. Date: 03/13/24 Order Comments: Fax to Dr. Aretha Damon at [phone] CREATININE, SERUM Standing Status: Future Standing Exp. Date: 03/13/24 Order Comments: Fax to Dr. Aretha Damon at [phone] Referral to Physical Therapy Referral Priority: Routine [...] hesitate to call the Hyperbaric Department at [phone] during clinic hours or page telecommunications switch technician staff with any updates, questions, or [...] recent) Eusebio Perez, PharmJaneen 12/13/2023 21:07 Pager: (TelCharge Payment) * Emily Hannah RN - 12/13/2023 1:07 PM CDTSummary: Discharge planning Clinical Coordinator Update Patient is medically ready for discharge back to [facility]- since 12/11. Spoke to Tabatha at [facility] today ([phone]) who reported that the patient was not [...] () of patient departure: 12/13/2023 @1530 Destination: [address] [place] [address] Type of ride: wheelchair Transportation vendor of ride: [facility] [phone] * If this ride needs to be [...] Clinical Coordinators will be informed via a TelCharge Payment page. PCS form was completed in Progress [...] infection Attending provider: Igor Glover MD Insurance: [facility] Secondary insurance: [place] [employer] [...] hesitate to call the Hyperbaric Department at [phone] during clinic hours or page telecommunications switch technician staff with any updates, questions, or [...] 12/12 - discussed with PharmD. HTN: Continue HEAVY EQUIPMENT TECHNICIAN amlodipine. Hyperlipidemia: Continue HEAVY EQUIPMENT TECHNICIAN rosuvastatin. Tobacco use disorder: Continue NRT. Hx of TBI. FEN: Regular consistent carb diet. Code status: Full code. VTE prophylaxis: VTE prophylaxis with lovenox to start 12/10. Lines: No central line. No mujica. Discharge planning: Discharg to [facility] in [place] when they're able to accept him back.Possibly [...] Glover MD, 12/12/2023 2:02 PM Page via Yooli * Narcisa Tobar DECORATIVE ENGRAVER APPRENTICE - 12/12/2023 9:50 AM CDT . Care Management Follow-up Note Patient Name: Stephanie Low Date: 12/12/2023 Patient/Family Discharge Goals: Patient's Discharge Goal: back to [facility] Family's Discharge Goal: n/a Discharge Destination Expected [...] Selected Services Address Phone Fax Patient Preferred [facility] Pending - No Request Sent N/A [id number] [facility] [id number] -- Narcisa Tobar LGSW, 12/12/2023 9:50 AM * Aretha Damon MD - 12/12/2023 8:53 AM CDT ID PROGRESS NOTE Stephanie Low 1980 male [id number] ASSESSMENT: MRSA left foot osteomyelitis S/p I&D [...] 12/12 - discussed with PharmD. HTN: Continue HEAVY EQUIPMENT TECHNICIAN amlodipine. Hyperlipidemia: Continue HEAVY EQUIPMENT TECHNICIAN rosuvastatin. Tobacco use disorder: Continue NRT. Hx of TBI. FEN: Regular consistent carb diet. Code status: Full code. VTE prophylaxis: VTE prophylaxis with lovenox to start 12/10. Lines: No central line. No mujica. Discharge planning: Discharg to [facility] in [place] when they're able to accept him back.Possibly [...] Glover MD, 12/11/2023 7:34 PM Page via Yooli * Eusebio Perez, PharmD - 12/11/2023 3:38 [...] recent) Eusebio Perez, Jaxon 12/11/2023 19:22 Pager: (TelDNA Responseq) * Lizbeth Cavazos LICSW - 12/11/2023 2:41 PM CDT Weekend Inpatient Social Work Note Summary: Weekend SW paged by bedside RN to help facilitate coordination back to TCU today. SW called Cruz Aguiar and left a voicemail. Many barriers are at play for a weekend return - patient hasIV antibiotics, he is recommended to receive 20 HBO sessions (1st today), and has [facility] Medicare Advantage (which requires prior authorization). GARY advised this likely cannot be resolved during the weekend due to the barriers listed above. Follow up needed: GARY will try to problem solve if Cruz Aguiar calls back, if not weekday team to follow up on plan for discharge. RAJ Cadena LICSW Inpatient Acid Plant Helper - Casual (weekends only) Available via [employer] Lizbeth Cavazos LICSW, 12/11/2023 2:41 PM Addendum [...] hesitate to call the Hyperbaric Department at [phone] during clinic hours or page telecommunications switch technician staff with any updates, questions, or [...] continue to follow while admitted. Please page telecommunications switch technician resident with questions. Patient was discussed with telecommunications switch technician staff Interval history: Patient seen and evaluated [...] 12/12 - discussed with PharmD. HTN: Continue HEAVY EQUIPMENT TECHNICIAN amlodipine. Hyperlipidemia: Continue HEAVY EQUIPMENT TECHNICIAN rosuvastatin. Tobacco use disorder: Continue NRT. Hx of TBI. FEN: Regular consistent carb diet. Code status: Full code. VTE prophylaxis: VTE prophylaxis with lovenox to start 12/10. Lines: No central line. No mujica. Discharge planning: Discharged to [facility] on 11/24 after admission for [...] Note: 12/10/23 1156 Rapid Rounds Attendance Physician;Charge nurse;military technology manager;asbestos worker helper;Bedside nurse Expected Discharge Disposition SNF [...] to discharge. Denise Esteves Inpatient Clinical Coordinator [facility] Office: [phone] * Suzy Patino DPM - 12/10/2023 8:42 [...] Schizophrenia History of TBI --Patient is own [facility] RECOMMENDATIONS: 1. Dressing: Dressed in OR [...] continue to follow while admitted. Please page telecommunications switch technician resident with questions. Patient was discussed with telecommunications switch technician staff Interval history: Patient seen resting comfortably [...] 12/12 - discussed with PharmD. HTN: Continue HEAVY EQUIPMENT TECHNICIAN amlodipine. Hyperlipidemia: Continue HEAVY EQUIPMENT TECHNICIAN rosuvastatin. Tobacco use disorder: Continue NRT. Hx of TBI. FEN: Regular consistent carb diet. Code status: Full code. VTE prophylaxis: VTE prophylaxis with hep to start 12/08. Lines: No central line. No mujica. 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 [...] 12/09/2023 Expected DC Date: 12/10/2023 Social Information Mat Sewer Used: None needed Decision Maker at Admission: Self Living Situation: longterm (see comment) Patient Identified Support System: sister, significant other Services Receiving: Waivered services (see comment) Complex Medical Needs: Other (see comment) (wound care) Transportation Used for Discharge: stretcher Safety Concerns: None Behavioral Health Concerns: None Patient Family Goals Patient's Discharge Goal: back to [facility] Family' Discharge Goal: n/a Plan/Interventions Expected Discharge Disposition: Care Home Facility Patient Information Verification Verified demographic information, including SSN, Next of Kin, and Guardianship: Yes Verified PCP: Yes If post-acute placement is needed, have vaccination status needs been addressed?: Not applicable Risks for Readmission: None Summary of pertinent information: Patient admitted from [facility] with concern for a left great to osteomyelitis that was resected 12/07. 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 Have a call out to [facility] to confirm bed hold ([phone]). Spoke to staff at his [facility] ([place] [phone]) to also update and confirm that he can return there when ultimately. Patient currently has started on HBO, this may be problematic with returning to [facility]. Emily Hannah RN, 12/09/2023 1:49 PM * [...] Schizophrenia History of TBI --Patient is own [facility] RECOMMENDATIONS: 1. Dressing: Dressed with Vashe [...] continue to follow while inpatient Please page telecommunications switch technician resident with questions. Patient was discussed with telecommunications switch technician staff Interval history: Patient seen and evaluated [...] Schizophrenia History of TBI --Patient is own [facility] RECOMMENDATIONS: 1. Dressing: Dressed in operating [...] continue to follow while inpatient Please page telecommunications switch technician resident with questions. Patient was seen with telecommunications switch technician staff, Dr. Palomo Interval history: Patient is [...] male D: Stephanie Low was admitted to [address] from PACU at 1446 for Other acute osteomyelitis of leftfoot ([facility]) . Patient: alert, oriented to person, place [...] informed of Patient Valuables and Belongings Policy (#[id number]): Policy reviewed - patient/family/designee has indicated that [...] 12/12 - discussed with PharmD. HTN: Continue HEAVY EQUIPMENT TECHNICIAN amlodipine. Hyperlipidemia: Continue HEAVY EQUIPMENT TECHNICIAN rosuvastatin. Tobacco use disorder: Continue NRT. Hx of TBI. FEN: Regular consistent carb diet. Code status: Full code. VTE prophylaxis: VTE prophylaxis with hep to start 12/08. Lines: No central line. No mujica. 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 [...] Shafer PA-C, 12/08/2023 8:34 AM Page via Yooli documented in this encounter H&P Notes * [...] -F/up cultures currently in process -[facility], holding [facility]TE ppx -AM BMP, CBC, CRP, ESR Chronic / Stable / Resolved / Ruled Out #T2DM: A1c 6.8% 07/2023. Reduce HEAVY EQUIPMENT TECHNICIAN lantus to 15 U while NPO, Novolog 1U/CHO + LDSSI. Rechecking A1c. #HTN: HEAVY EQUIPMENT TECHNICIAN amlodipine 10 mg daily #HLD: HEAVY EQUIPMENT TECHNICIAN statin #Paranoid schizophrenia: HEAVY EQUIPMENT TECHNICIAN prazosin #HILL: HEAVY EQUIPMENT TECHNICIAN escitalopram 20 mg daily #Tobacco use [...] including pre-visit review of separately obtained history, [id number] interaction performing medically appropriate physical exam, patientcounseling/education, [...] surgery and sign off. 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 Discharge [...] wound healing. Message sent to primary team. [facility] Nursing follow up: Appreciate the [...] identified. WOCN available Wednesday through Wednesday on [employer] or [phone] [facility] Nursing attempts to see patients in person when possible, but will at times complete a chart/media review in order to recommend wound treatment in a timely manner. Please reconsult [facility] if wound condition changes or [...] at PharmD General Weekend Days (TelmedIQ) or [phone]. If no response within needed timeframe, please contact central pharmacy via phone at [phone]. Planned discharge medications are: Medication List Medications [...] NEW CONSULT NOTE Stephanie Low 1980 male [id number] REASON FOR CONSULT: I was asked to [...] Prior to recent hospitalization pt lived at senior care with elevator. Was independent with mobility SUBJECTIVE [...] bearing restrictions, otherwise bed to chair only HEAVY EQUIPMENT TECHNICIAN Appropriate: No (more OR) Participated in goal setting and treatment planning: Patient Agrees with goals and treatment plan: Question patient's ability to understand. Gracia Arredondo, PT 12/10/2023 Pager: [employer] PT Department * David Cortes MD - 12/09/2023 9:58 AM CDT Images from the original note were not included. [facility] HYPERBARIC MEDICINE CONSULTATION Referring clinician: Che Palomo [...] old poorly controlled DMII male referred to [facility] Hyperbaric medical team for consultation regarding concern [...] Hyperbaric Medicine [facility]. Please do not hesitate to call the department at [phone] during clinic hours ([phone]) or page the telecommunications switch technician HYPERBARIC staff with any questions or concerns. [...] you for allowing us to participate in [facility]. [place] [facility] Hyperbaric Medicine: [phone]. David Cortes MD * Angela Cardenas, OCN - 12/08/2023 3:00 PM CDTAssociated Order(s): CONSULT TO WOUND NURSE Images from the original note were not included. [facility] Nursing consulted by nursing for perineal wounds. 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 Discharge [...] wound healing. Message sent to primary team. [facility] Nursing follow up: later this week after surgery sees Staff to continue to follow skin injury bundle. Escalate concerns to WOCN through additional consult or to the provider when barriers are identified. WOCN available Wednesday through Wednesday on [employer] or [phone] [facility] Nursing attempts to see patients [...] Schizophrenia History of TBI --Patient is own [facility] RECOMMENDATIONS: 1. Dressing: Daily dressing changes [...] continue to follow while inpatient Please page telecommunications switch technician resident with questions. Patient was seen with telecommunications switch technician staff, Dr. Palomo CHIEF COMPLAINT: Left foot [...] not included. Podiatric Surgery Operative Report Stephanie Lwo : 1980 Sex: male OR Date: 12/10/2023 Surgeon: Suzy Patino DPM Carpet Layer Helper(s): Samina Singletary DPM PGY3 Pre-Op Diagnosis: Packed [...] 1980 Sex: male Surgeon: Che Palomo DPM Carpet Layer Helper(s): Niraj Lewis DPM PGY-3 Jf Sky, MS-4 [...] 2023 2242 Started nicotine gum PRN Started HEAVY EQUIPMENT TECHNICIAN glargine and lispro The patient remained in the emergency department through the end of my shift. Their care was signedout [id number] with the oncoming provider. Dx, DDx, Assessment and Plan was discussed with Attending Emergency Medicine Physician. Final Clinical Impression 1. Other acute osteomyelitis of left foot ([facility]) Disposition and Plan Signed out to oncoming [...] in real time. Please contact me via [employer] staff message if you note any errors requiring clarification. * Farida Beyer, SABINE - 12/07/2023 7:41 PM CDT Assumed care of pt. SNF director here as pt was reported missing when he did not return back from the clinic. Plan for admission with OR tomorrow. NPO at midnight, pt aware. * Allyssa Drummond MD - 12/07/2023 4:25 PM CDT Emergency Department Physician Note [facility] HISTORY Stephanie Low is a 43 y.o. [...] left foot ([facility]) DISPOSITION & PLAN Patient remained in the [...] Toe Head to Toe Assessment Shift Summary [id number] Alert and oriented x3, unsure of the [...] Physical Therapy Inpatient Discharge Summary Stephanie Low [id number] Diagnosis Patient Active Problem List Diagnosis Fourniers [...] Therapist: Gracia Arredondo, PT Date: 12/14/2023 Pager: [employer] PT Department * Nursing Assessment - Kate Sarmiento RN - 12/14/2023 6:45 AM CDT Nursing Assessment Head to Toe Head to Toe Assessment Shift Summary Shift Summary [id number] Pt alert oriented and able to make [...] Toe Head to Toe Assessment Shift Summary [id number] Daily dressing change done per order, reported [...] Toe Head to Toe Assessment Shift Summary [id number] Alert and oriented x 4, able to [...] Toe Head to Toe Assessment Shift Summary [id number] Patient is alert and oriented x 4,RA.Vitals [...] amputation RLE - amputation Comments: R amputation HEAVY EQUIPMENT TECHNICIAN Integumentary Assessment Within Defined Limits except [...] Toe Head to Toe Assessment Shift Summary [id number] Patient is alert and oriented x 4,RA.Vitals [...] 12/10/2023 6:30 PM PGY-1 Green Surgery Pager: [phone] * Nursing Assessment - May Torres, RN [...] Singletary DPM - 12/10/2023 11:06 AM CDT [facility] Immediate Post Operative Note Note written: Day [...] Toe Head to Toe Assessment Shift Summary [id number] Alert and oriented x3, unsure of the [...] Head to Toe Assessment Shift Summary Night [id number] PT is AO x4. 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 Drummond in [facility]. Patient Class: Inpatient Cardiac Monitoring: [...] designation above. Please page the MOD via [employer] with clinical updates or status changes. Note [...] left foot ([facility]) POC GLUCOSE Routine 12/10/2023 6:16 AM CDT [...] left foot ([facility]) TC LAB BLOOD DRAW BY VENIPUNCTURE Routine [...] POC Glucose 255(H) 70 - 100 mg/dL [facility] Blood 12/14/2023 11:2 9 AM CDT Eusebio Vivar MD LABORATORY [facility] [address] [place] [address], * (ABNORMAL) POC GLUCOSE (12/14/2023 6:32 AM CDT) POC Glucose 186(H) 70 - 100 mg/dL [facility] Blood 12/14/2023 6:32 AM CDT Eusebio Vivar MD LABORATORY Performing Organization Address [facility] Co de Phone Number [facility] [address] [place] [address], * (ABNORMAL) POC GLUCOSE (12/13/2023 9:05 PM CDT) POC Glucose 175(H) 70 - 100 mg/dL [facility] Blood 12/13/2023 9:05 PM CDT Eusebio Vivar MD LABORATORY Performing Organization Address [facility] Co de Phone Number [facility] POINT OF [address] [address], * VANCOMYCIN LEVEL (12/13/2023 5:24 PM CDT) Vancomycin 17.0 mcg/mL [facility] Comment:Expected Range (Trou gh): 10-20 mcg/ml Blood 12/13/2023 5:24 PM CDT 12/13/2023 5:46 PM CDT Narrative [facility] - 12/13/2023 6:34 PM CDT Please ensure trough level drawn prior to next vancomycin dose. Thank you Peak or trough:->Trough Eusebio KolbD LABORATORY Performing Organization Address [facility] Co de Phone Number [facility] [address] [address] * (ABNORMAL) POC GLUCOSE (12/13/2023 4:00 PM CDT) POC Glucose 153(H) 70 - 100 mg/dL [facility] Blood 12/13/2023 4:00 PM CDT Eusebio Vivar MD LABORATORY Performing Organization Address City/[facility] Co de Phone Number [facility] POINT OF [address] [address], * (ABNORMAL) POC GLUCOSE (12/13/2023 11:47 AM CDT) POC Glucose 271(H) 70 - 100 mg/dL [facility] Blood 12/13/2023 11:4 7 AM CDT Eusebio Vivar MD LABORATORY Performing Organization Address City/[facility] Co de Phone Number [facility] POINT OF CARE [address] [id number], [place] * (ABNORMAL) POC GLUCOSE (12/13/2023 6:35 AM CDT) POC Glucose 204(H) 70 - 100 mg/dL [facility] Blood 12/13/2023 6:35 AM CDT Eusebio Vivar MD LABORATORY Performing Organization Address [facility] Co de Phone Number [facility] [address] [place] [address], [place] * (ABNORMAL) POC GLUCOSE (12/12/2023 8:54 PM CDT) POC Glucose 170(H) 70 - 100 mg/dL [facility] Blood 12/12/2023 8:54 PM CDT Eusebio Vivar MD LABORATORY Performing Organization Address City/[facility] Co de Phone Number [facility] POINT [facility] [address] [place] [address], [place] * (ABNORMAL) POC GLUCOSE (12/12/2023 4:10 PM CDT) POC Glucose 252(H) 70 - 100 mg/dL [facility] Blood 12/12/2023 4:10 PM CDT Eusebio Vivar MD LABORATORY Performing Organization Address City/[facility] Co de Phone Number [facility]ARE [address] [place] [address], [place] * (ABNORMAL) POC GLUCOSE (12/12/2023 11:07 AM CDT) POC Glucose 200(H) 70 - 100 mg/dL [facility] Blood 12/12/2023 11:0 7 AM CDT Eusebio Vivar MD LABORATORY Performing Organization Address [facility] de Phone Number [facility] [address] [place], [place] [phone], * (ABNORMAL) POC GLUCOSE (12/12/2023 6:42 AM CDT) POC Glucose 185(H) 70 - 100 mg/dL [facility] Blood 12/12/2023 6:42 AM CDT Eusebio Vivar MD LABORATORY Performing Organization Address [facility] de Phone Number [facility] [address] [place] [address], [place] * (ABNORMAL) POC GLUCOSE (12/11/2023 9:10 PM CDT) POC Glucose 226(H) 70 - 100 mg/dL [facility] Blood 12/11/2023 9:10 PM CDT Eusebio Vivar MD LABORATORY Performing Organization Address [facility] de Phone Number [facility] [address] [place] [address], [place] * VANCOMYCIN LEVEL (12/11/2023 5:28 PM CDT) Vancomycin 19.6 mcg/mL [facility] Comment:Expected Range (Trou gh): 10-20 mcg/ml Blood 12/11/2023 5:28 PM CDT 12/11/2023 5:37 PM CDT Narrative [facility] LAB - 12/11/2023 6:46 PM CDT Peak or trough:->Trough Igor Glover MD LABORATORY [facility] [address] [place] [address] * (ABNORMAL) POC GLUCOSE (12/11/2023 4:13 PM CDT) POC Glucose 173(H) 70 - 100 mg/dL [facility] POINT OF CARE Blood 12/11/2023 4:13 PM CDT Eusebio Vivar MD LABORATORY Performing Organization Address City/[facility]/ZIP Co de Phone Number [facility] POINT OF CARE [address] [place] [address], [place] * (ABNORMAL) POC GLUCOSE (12/11/2023 11:43 AM CDT) POC Glucose 283(H) 70 - 100 mg/dL [facility] POINT OF CARE Blood 12/11/2023 11:4 3 AM CDT Eusebio Vivar MD LABORATORY Performing Organization Address [facility] Co de Phone Number [facility] POINT OF [address] [address], [place] * (ABNORMAL) POC GLUCOSE (12/11/2023 10:28 AM CDT) POC Glucose 198(H) 70 - 100 mg/dL [facility] POINT OF CARE Blood 12/11/2023 10:2 8 AM CDT Eusebio Vivar MD LABORATORY Performing Organization Address City/[facility] Co de Phone Number [facility] POINT OF CARE [address] [place] [address], [place] * (ABNORMAL) POC GLUCOSE (12/11/2023 6:41 AM CDT) POC Glucose 173(H) 70 - 100 mg/dL [facility]ARE Blood 12/11/2023 6:41 AM CDT Eusebio Vivar MD LABORATORY Performing Organization Address City/[facility]/ZIP Co de Phone Number [facility]ARE [address] [place] [address], * (ABNORMAL) CBC WITH PLTS/AUTO DIFF (12/11/2023 5:50 AM CDT) WBC 8.72 4.00 - 10.00 k/cmm [facility] RBC 3.82(L) 4.60 - 6.00 m/cmm [facility] Hgb 10.6(L) 13.1 - 17.5 g/dL [facility] Hematocrit 32.4(L) 40.0 - 51.0 % [facility] MCV 84.8 80.0 - 100.0 fL [facility] MCH 27.7 25.0 - 32.0 pg [facility] MCHC 32.7 31.0 - 36.0 g/dL [facility] RDW 13.5 11.5 - 14.5 % [facility] Plt 400 150 - 400 k/cmm [facility] MPV 9.3 6.5 - 12.5 fL [facility] Automated Abs Neutrophil 4.22 1.70 - 6.50 k/cmm [facility] Comment:Preliminary ANC, Fin al Result to Follow Abs Immature Granulocyte 0.09 0.00 - 0.09 k/cmm [facility] Comment:The Immature Granulo cyte Absolute count contains metamyelocytes and myelocytes. Abs Neutrophil 4.22 1.70 - 6.50 k/cmm [facility] Abs Lymphocyte 2.59 0.80 - 4.00 k/cmm [facility] Abs Monocyte 1.00 0.20 - 1.00 k/cmm [facility] Abs Eosinophil 0.79(H) 0.00 - 0.60 k/cmm [facility] Abs Basophil 0.03 0.00 - 0.20 k/cmm [facility] Blood 12/11/2023 5:50 AM CDT 12/11/2023 6:26 AM CDT Igor Glover MD LABORATORY [facility] [address] [address] * (ABNORMAL) PANEL BASIC METABOLIC (BMP) (12/11/2023 5:50 AM CDT) CO2 25 22 - 30 mmol/L [facility] Glucose 178(H) 70 - 100 mg/dL [facility] BUN 9 6 - 20 mg/dL [facility] Creatinine 0.92 0.70 - 1.25 mg/dL [facility] Calcium 9.0 8.6 - 10.0 mg/dL [facility] Sodium 136 135 - 148 mmol/L [facility] Potassium 4.1 3.5 - 5.3 mmol/L [facility] Chloride 100 92 - 108 mmol/L [facility] eGFR (2020 CKD-EPI) 105 >=60 ml/min/1.7 3m2 [facility] Comment: The estimated glomerular filtration rate (eGFR) was calculated using the CKD-EPI 2020 creatinine equation, which does not include race as a factor. This equation is validated in individuals 18 years of age and older, and eGFR is normalized to a body surface area of 1.73m^2. AnGap 11 8 - 16 mmol/L [facility] Blood 12/11/2023 5:50 AM CDT 12/11/2023 6:25 AM CDT Igor Glover MD LABORATORY [facility] [place] [address] * (ABNORMAL) POC GLUCOSE (12/10/2023 9:03 PM CDT) [facility] POC Glucose 206(H) 70 - 100 mg/dL [facility]ARE Blood 12/10/2023 9:03 PM CDT Eusebio Vivar MD LABORATORY [facility]ARE [address] [place] [address] * (ABNORMAL) POC GLUCOSE (12/10/2023 4:16 PM CDT) [facility] POC Glucose 341(H) 70 - 100 mg/dL [facility] Blood 12/10/2023 4:16 PM CDT Eusebio Vivar MD LABORATORY [facility]ARE [address] [place] [address], [place] * XR CHEST 2 VIEWS PA [...] (ABNORMAL) POC GLUCOSE (12/10/2023 12:09 PM CDT) [facility] POC Glucose 194(H) 70 - 100 mg/dL [facility] Blood 12/10/2023 12:0 9 PM CDT Eusebio Vivar MD LABORATORY [facility]ARE [address] [place] [address], * SURGICAL PATHOLOGY (12/10/2023 11:07 AM CDT) [facility] SURG PATH FINAL ?Surgical Pathology Report Collection Date: ?12/10/2023 11:07 CDT ? Ordering Physician: ? SUZY PATINO Received Date: ?12/10/2023 12:07 CDT ? Accession Number: ? [id number] ? Surgical Pathology Final Report Specimen Type: [...] Regalado M.D. Attending Pathologist. DDB/DDB 12.10.2023 13:39 [facility] AP Specimen FOOT STRUCTURE / Unknown 12/10/2023 11:07 AM CDT Comment:OR: Routine gross an d microscopic examination Tissue: 1st metatarsel left foot, cut margin Site: foot Additional clinical information: Suzy Patino DPM LAB PATHOLOGY Performing Organization Address [facility] Co de Phone Number [facility] [place] [address] * (ABNORMAL) POC GLUCOSE (12/10/2023 6:16 AM CDT) POC Glucose 228(H) 70 - 100 mg/dL [facility] Blood 12/10/2023 6:16 AM CDT Eusebio Vivar MD LABORATORY Performing Organization Address [facility] Co de Phone Number [facility] [address] [place] [address] * (ABNORMAL) CBC WITH PLTS/AUTO DIFF (12/10/2023 5:06 AM CDT) WBC 8.35 4.00 - 10.00 k/cmm [facility] RBC 3.81(L) 4.60 - 6.00 m/cmm [facility] Hgb 10.3(L) 13.1 - 17.5 g/dL [facility] Hematocrit 32.5(L) 40.0 - 51.0 % [facility] MCV 85.3 80.0 - 100.0 fL [facility] MCH 27.0 25.0 - 32.0 pg [facility] MCHC 31.7 31.0 - 36.0 g/dL [facility] RDW 13.4 11.5 - 14.5 % [facility] Plt 377 150 - 400 k/cmm [facility] MPV 9.4 6.5 - 12.5 fL [facility] Automated Abs Neutrophil 4.14 1.70 - 6.50 k/cmm [facility] Comment:Preliminary ANC, Fin al Result to Follow Abs Immature Granulocyte 0.08 0.00 - 0.09 k/cmm [facility] Comment:The Immature Granulo cyte Absolute count contains metamyelocytes and myelocytes. Abs Neutrophil 4.14 1.70 - 6.50 k/cmm [facility] Abs Lymphocyte 2.39 0.80 - 4.00 k/cmm [facility] Abs Monocyte 1.06(H) 0.20 - 1.00 k/cmm [facility] Abs Eosinophil 0.64(H) 0.00 - 0.60 k/cmm [facility] Abs Basophil 0.04 0.00 - 0.20 k/cmm [facility] Blood 12/10/2023 5:06 AM CDT 12/10/2023 5:40 AM CDT Igor Glover MD LABORATORY [facility] [address] [address] * (ABNORMAL) PANEL BASIC METABOLIC (BMP) (12/10/2023 5:06 AM CDT) CO2 26 22 - 30 mmol/L [facility] Glucose 204(H) 70 - 100 mg/dL [facility] BUN 11 6 - 20 mg/dL [facility] Creatinine 0.92 0.70 - 1.25 mg/dL [facility] Calcium 9.0 8.6 - 10.0 mg/dL [facility] Sodium 137 135 - 148 mmol/L [facility] Potassium 4.2 3.5 - 5.3 mmol/L [facility] Chloride 101 92 - 108 mmol/L [facility] eGFR (2020 CKD-EPI) 105 >=60 ml/min/1.7 3m2 [facility] Blood 12/10/2023 5:06 AM CDT 12/10/2023 5:40 AM CDT Igor Glover MD LABORATORY [facility] [place] [address] * (ABNORMAL) POC GLUCOSE (12/09/2023 9:18 PM CDT) POC Glucose 204(H) 70 - 100 mg/dL [facility]ARE Blood 12/09/2023 9:18 PM CDT Eusebio Vivar MD LABORATORY [facility]ARE [address] [place] [address] * (ABNORMAL) PANEL BASIC METABOLIC (BMP) (12/09/2023 5:56 PM CDT) Sodium 134(L) 135 - 148 mmol/L [facility] Potassium 4.2 3.5 - 5.3 mmol/L [facility] Chloride 99 92 - 108 mmol/L [facility] CO2 23 22 - 30 mmol/L [facility] AnGap 12 8 - 16 mmol/L [facility] Glucose 246(H) 70 - 100 mg/dL [facility] BUN 13 6 - 20 mg/dL [facility] Creatinine 0.98 0.70 - 1.25 mg/dL [facility] Calcium 8.8 8.6 - 10.0 mg/dL [facility] [...] Igor Glover MD LABORATORY Performing Organization Address [facility] Co de Phone Number [address] [address] * VANCOMYCIN LEVEL (12/09/2023 5:56 PM CDT) Vancomycin 22.0 mcg/mL [facility] Comment:Expected Range (Trou gh): 10-20 mcg/ml Blood 12/09/2023 5:56 PM CDT 12/09/2023 6:26 PM CDT Narrative [facility] - 12/09/2023 8:14 PM CDT Peak or trough:->Trough Gwen Gamez PharmD LABORATORY Performing Organization Address [facility] Co de Phone Number [facility] [address] [address] * (ABNORMAL) POC GLUCOSE (12/09/2023 4:08 PM CDT) POC Glucose 231(H) 70 - 100 mg/dL [facility]INT [facility]ARE Blood 12/09/2023 4:08 PM CDT Eusebio Vivar MD LABORATORY Performing Organization Address [facility]/State/ZIP Co de Phone Number [facility] CARE [address] [place] [address], [place] * (ABNORMAL) POC GLUCOSE (12/09/2023 11:13 AM CDT) POC Glucose 282(H) 70 - 100 mg/dL [facility] POINT OF CARE Blood 12/09/2023 11:1 3 AM CDT Eusebio Vivar MD LABORATORY [facility] POINT OF CARE [address] [place] [address], [place] * HBO TCO2 MEASUREMENT COMPLETE (12/09/2023 [...] 2002; 10:198-207. Bridget QUIÑONEZ et al. [facility] 2009, Vol. 36(1). ? [place] 07/27/13 [...] POC Glucose 198(H) 70 - 100 mg/dL [facility] POINT OF CARE Blood 12/09/2023 6:43 AM CDT Eusebio Vivar MD LABORATORY Performing Organization Address [facility] Co de Phone Number [facility] POINT OF [address] [address], [place] * (ABNORMAL) POC GLUCOSE (12/08/2023 9:10 PM CDT) POC Glucose 268(H) 70 - 100 mg/dL [facility] POINT OF CARE Blood 12/08/2023 9:10 PM CDT Eusebio Vivar MD LABORATORY Performing Organization Address [facility] Co de Phone Number [facility] POINT OF [address] [address], [place] * (ABNORMAL) SED RATE (ESR) (12/08/2023 4:47 PM CDT) Sed Rate 120(H) 2 - 10 mm/hr [facility] Blood 12/08/2023 4:47 PM CDT 12/08/2023 5:07 PM CDT Suzy Shafer PA-C LABORATORY Performing Organization Address City/[facility]/ZIP Co de Phone Number [facility] [address] [address] * (ABNORMAL) PANEL BASIC METABOLIC (BMP) (12/08/2023 4:47 PM CDT) Sodium 134(L) 135 - 148 mmol/L [facility] Potassium 4.0 3.5 - 5.3 mmol/L [facility] Chloride 98 92 - 108 mmol/L [facility] CO2 24 22 - 30 mmol/L [facility] AnGap 12 8 - 16 mmol/L [facility] Glucose 247(H) 70 - 100 mg/dL [facility] BUN 16 6 - 20 mg/dL [facility] Creatinine 0.98 0.70 - 1.25 mg/dL [facility] Calcium 8.7 8.6 - 10.0 mg/dL [facility] [...] 5:07 PM CDT Suzy Shafer PA-C LABORATORY [facility] [address] [address] * (ABNORMAL) GLYCOSYLATED HGB - A1C (12/08/2023 4:47 PM CDT) Hemoglobin A1C 8.5(H) 4.0 - 5.6 % [facility] Comment: Increased risk for diabetes (prediabetes): 5.7-6.4% Diabetes >=6.5% In the absence of unequivocal hyperglycemia, diagnosis requires two abnormal test results (i.e. HbA1c and glucose) or two abnormal results from specimens collected at two different timepoints. The presence of some hemoglobin variants or red cell disorders may interfere with the measurement of hemoglobin A1c (HbA1c). Estimated Average Glucose 197(H) 68 - 114 [facility] Comment: The estimated Average Glucose (eAG) was calculated using an equation derived from a study of 507 adults with type 1, type 2, or no diabetes. Minority populations were underrepresented and children were not included. The eAG is not equivalent to a fasting glucose concentration. Blood 12/08/2023 4:47 PM CDT 12/08/2023 5:07 PM CDT Narrative [facility] - 12/08/2023 6:01 PM CDT If not done in the last 30 days. Suzy Shafer PA-C LABORATORY [facility] [address] [address] * (ABNORMAL) CBC WITH PLATELET (12/08/2023 4:47 PM CDT) WBC 10.39(H) 4.00 - 10.00 k/cmm [facility] RBC 3.59(L) 4.60 - 6.00 m/cmm [facility] Hgb 9.8(L) 13.1 - 17.5 g/dL [facility] Hematocrit 30.8(L) 40.0 - 51.0 % [facility] MCV 85.8 80.0 - 100.0 fL [facility] MCH 27.3 25.0 - 32.0 pg [facility] MCHC 31.8 31.0 - 36.0 g/dL [facility] RDW 13.5 11.5 - 14.5 % [facility] Plt 314 150 - 400 k/cmm [facility] MPV 9.3 6.5 - 12.5 fL [facility] Blood 12/08/2023 4:47 PM CDT 12/08/2023 5:07 PM CDT Suzy Shafer PA-C LABORATORY [facility] [address] [address] * (ABNORMAL) C-REACTIVE PROTEIN (12/08/2023 4:47 PM CDT) C-Reactive Protein 77(H) <=4 mg/L [facility] Blood 12/08/2023 4:47 PM CDT 12/08/2023 5:07 PM CDT Suzy Shafer PA-C LABORATORY [facility] [address] [place] [address] * (ABNORMAL) POC GLUCOSE (12/08/2023 4:20 PM CDT) POC Glucose 204(H) 70 - 100 mg/dL [facility] Blood 12/08/2023 4:20 PM CDT Eusebio Vivar MD LABORATORY Performing Organization Address City/[facility]/ZIP Co de Phone Number [facility] [address] [place] [address], [place] * (ABNORMAL) POC GLUCOSE (12/08/2023 12:35 PM CDT) POC Glucose 227(H) 70 - 100 mg/dL [facility] Blood 12/08/2023 12:3 5 PM CDT Eusebio Vivar MD LABORATORY Performing Organization Address [facility] Co de Phone Number [address] [address], [place] * (ABNORMAL) POC GLUCOSE (12/08/2023 10:02 AM CDT) POC Glucose 263(H) 70 - 100 mg/dL [facility] POINT OF CARE Blood 12/08/2023 10:0 2 AM CDT Eusebio Vivar MD LABORATORY Performing Organization Address City/[facility]/ZIP Co de Phone Number [facility] POINT [facility] [address] [place] [address], [place] * XR FOOT LEFT 3 V [...] POC Glucose 214(H) 70 - 100 mg/dL [facility] Blood 12/08/2023 8:32 AM CDT Eusebio Vivar MD LABORATORY [facility] [address] [place] [address], * SURGICAL PATHOLOGY (12/08/2023 7:56 AM CDT) SURG PATH FINAL ?Surgical Pathology Report Collection Date: ?12/08/2023 07:56 CDT ?Ordering Physician: ? CHE PALOMO Received Date: ?12/08/2023 08:41 CDT ?Accession Number: ? [id number] ? Surgical Pathology Final Report Specimen Type: [...] specimen reveals a yellow, trabeculated cut surface. Flat Knitter Helper sections are submitted following decalcification as follows: A1: Resection margin, en face A2: Full cross-section of metatarsal head (DDB) DDB/DDB 12.08.2023 9:52 Microscopic Description: Microscopic examination performed and findings are reflected in the final diagnosis. I personally examined the relevant preparations and rendered and confirmed the diagnosis. ? Signed - Tootie Mackenzie M.D. Attending Pathologist. DDB/DDB 12.08.2023 9:52 [facility] AP Specimen FOOT STRUCTURE / Unknown 12/08/2023 7:56 AM CDT Comment:OR: Routine gross an d microscopic examination Tissue: Left first metatarsal head Site: left foot Additional clinical information: evaluate cut side for osteomyelitis Che Mullent DP LAB PATHOLOGY Performing Organization Address [facility] Co de Phone Number [facility] [address] [address] * FUNGUS CULTURE:INCLUDES SUHAS (12/08/2023 7:51 AM CDT) Final Report No fungus isolated. [facility] SUHAS Prep No fungal elements seen. [facility] Bone STRUCTURE OF LEFT FOOT / Unknown 12/08/2023 7:51 AM CDT 12/08/2023 9:00 AM CDT Comment:2. Bone first metata rsal left foot Che Jonbitt DP LAB MICROBIOLOGY Performing Organization Address [facility] Co de Phone Number [facility] [address] [address] * ANAEROBE CULTURE (12/08/2023 7:51 AM CDT) Final Report No anaerobes isolated. [facility] Bone STRUCTURE OF LEFT FOOT / Unknown 12/08/2023 7:51 AM CDT 12/08/2023 9:00 AM CDT Comment:2. Bone first metata rsal left foot Che L Beth DP LAB MICROBIOLOGY Performing Organization Address [facility] de Phone Number [facility] [address] [address] * (ABNORMAL) TISSUE CULTURE:INCLUDES GRAM STAIN (12/08/2023 7:51 AM CDT) Final Report Positive Culture Few METHICILLIN RESISTANT Staphylococcus aureus (MRSA) isolated. 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 For susceptibility, see previous report on culture from wound culture collected 12/07/23. (POS) [facility] Organism METHICILLIN RESISTANT STAPHYLOCOCCUS AUREUS (MRSA)(POS) [facility] Gram Stain Report Corrected Report Positive Gram stain Rare PMN's seen. Rare gram positive cocci. Gram stain electronically reported to and acknowledged by: Dr. Niraj Lewis from OR at ??12/08/2023 10:09:09 by Jacklyn Easley MLS. Removed Pleomorphic gram variable bacilli from report. Results electronically reported to and acknowledged by: [facility] Igor Glover [facility] [place] 12/09/2023 12:48:27. Elizabeth Schwartz MLS. (POS) [facility] Bone STRUCTURE OF LEFT FOOT / Unknown 12/08/2023 7:51 AM CDT 12/08/2023 9:00 AM CDT Comment:2. Bone first metata rsal left foot Che Palomo [facility] MICROBIOLOGY [facility] [address] [address] * (ABNORMAL) TISSUE CULTURE:INCLUDES GRAM STAIN (12/08/2023 7:51 AM CDT) Final Report Positive Culture Few METHICILLIN RESISTANT Staphylococcus aureus (MRSA) isolated. 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 For susceptibility, see previous report on culture from wound culture collected 12/07/23. Rare Corynebacterium striatum group isolated. A member of the diphtheroid bacilli. (POS) [facility] Organism METHICILLIN RESISTANT STAPHYLOCOCCUS AUREUS (MRSA)(POS) [facility] Organism CORYNEBACTERIUM STRIATUM GROUP(POS) [facility] Gram Stain Report Positive Gram stain Rare PMN's seen. Rare gram positive cocci. Gram stain electronically reported to and acknowledged by: Dr. Niraj Lewis from OR at ??12/08/2023 10:09:09 by Jacklyn Easley MLS. (POS) [facility] Tissue FOOT STRUCTURE / Unknown 12/08/2023 7:51 AM CDT Comment:Add Aerobic Narrative [facility] - 12/10/2023 2:22 PM CDT Add Aerobic Che Mullent DPM LAB MICROBIOLOGY Performing Organization Address [facility] Co de Phone Number [facility] [address] [address] * FUNGUS CULTURE:INCLUDES SUHAS (12/08/2023 7:51 AM CDT) Final Report No fungus isolated. [facility] SUHAS Prep No fungal elements seen. [facility] Tissue FOOT STRUCTURE / Unknown 12/08/2023 7:51 AM CDT Comment:Add Aerobic Narrative [facility] - 01/05/2024 8:10 AM CDT Add Aerobic Che Jonbitt DPM [facility] MICROBIOLOGY Performing Organization Address [facility] Co de Phone Number [facility] [address] [address] * ANAEROBE CULTURE (12/08/2023 7:51 AM CDT) Final Report No anaerobes isolated. [facility] Tissue FOOT STRUCTURE / Unknown 12/08/2023 7:51 AM CDT Comment:Add Aerobic Narrative [facility] - 12/14/2023 9:06 AM CDT Add Aerobic Che Jonbitt DPM LAB MICROBIOLOGY Performing Organization Address [facility] Co de Phone Number [facility] [address] [address] * (ABNORMAL) POC GLUCOSE (12/08/2023 7:22 AM CDT) POC Glucose 236(H) 70 - 100 mg/dL [facility] Blood 12/08/2023 7:22 AM CDT Eusebio Vivar MD LABORATORY Performing Organization Address City/[facility]/ZIP Co de Phone Number [facility] [address] [place] [address], * EXTRA TUBE - BLUE (12/07/2023 4:05 PM CDT) BLUE TUBE [facility] Comment:Blue top(Sodium citr ate) tubes are kept for 3 days from the collection date. Blood 12/07/2023 4:05 PM CDT 12/07/2023 4:24 PM CDT Eusebio Vivar MD LABORATORY Performing Organization Address [facility] Co de Phone Number [facility] [address] [address] * EXTRA TUBE - DARK GREEN (12/07/2023 4:05 PM CDT) DARK GREEN TUBE Stored [facility] Comment:Dark Green tubes (Li thium Heparin) are stored in the lab for 1 day from the collection date. Blood 12/07/2023 4:05 PM CDT 12/07/2023 4:24 PM CDT Eusebio Vivar MD LABORATORY Performing Organization Address [facility] de Phone Number [facility] [address] [address] * (ABNORMAL) ED CHEMISTRY LABS(NA,K,CL,CO2,GLU,CREAT,CA-IONIZED,ANION GAP) (12/07/2023 4:05 PM CDT) Pathologist [facility] Sodium 139 135 - 148 mmol/L [facility] Chloride 97 92 - 108 mmol/L [facility] AnGap 15 8 - 16 mmol/L [facility] Glucose 284(H) 70 - 100 mg/dL [facility] ICA, Actual 4.89 4.40 - 5.20 mg/dL [facility] ICA, pH Corrected 4.74 4.40 - 5.20 mg/dL [facility] Creatinine 1.26(H) 0.70 - 1.25 mg/dL [facility] BICARB 26 22 - 26 mEq/L [facility] eGFR (2020 CKD-EPI) 72 >=60 ml/min/1.7 3m2 [facility] Comment: The estimated glomerular filtration rate (eGFR) was calculated using the CKD-EPI 2020 creatinine equation, which does not include race as a factor. This equation is validated in individuals 18 years of age and older, and eGFR is normalized to a body surface area of 1.73m^2. Potassium 4.5 3.5 - 5.3 mmol/L [facility] Blood 12/07/2023 4:05 PM CDT 12/07/2023 4:27 PM CDT Eusebio Vivar MD LABORATORY [facility] [address] [address] * (ABNORMAL) CBC WITH PLTS/AUTO DIFF (12/07/2023 4:05 PM CDT) WBC 9.80 4.00 - 10.00 k/cmm [facility] RBC 4.08(L) 4.60 - 6.00 m/cmm [facility] Hgb 11.2(L) 13.1 - 17.5 g/dL [facility] Hematocrit 34.7(L) 40.0 - 51.0 % [facility] MCV 85.0 80.0 - 100.0 fL [facility] MCH 27.5 25.0 - 32.0 pg [facility] MCHC 32.3 31.0 - 36.0 g/dL [facility] RDW 13.7 11.5 - 14.5 % [facility] Plt 324 150 - 400 k/cmm [facility] MPV 9.4 6.5 - 12.5 fL [facility] Automated Abs Neutrophil 5.37 1.70 - 6.50 k/cmm [facility] Comment:Preliminary ANC, Fin al Result to Follow Abs Immature Granulocyte 0.12(H) 0.00 - 0.09 k/cmm [facility] Comment:The Immature Granulo cyte Absolute count contains metamyelocytes and myelocytes. Abs Neutrophil 5.37 1.70 - 6.50 k/cmm [facility] Abs Lymphocyte 2.61 0.80 - 4.00 k/cmm [facility] Abs Monocyte 1.32(H) 0.20 - 1.00 k/cmm [facility] Abs Eosinophil 0.34 0.00 - 0.60 k/cmm [facility] Abs Basophil 0.04 0.00 - 0.20 k/cmm [facility] Blood 12/07/2023 4:05 PM CDT 12/07/2023 4:51 PM CDT Eusebio Vivar MD LABORATORY Performing Organization Address City/[facility]/ZIP Co de Phone Number [address] [address] * LACTATE (LACTIC ACID) (12/07/2023 4:05 PM CDT) Lactate 2.1 0.7 - 2.1 mmol/L [facility] Blood 12/07/2023 4:05 PM CDT 12/07/2023 4:27 PM CDT Narrative [facility] - 12/07/2023 4:27 PM CDT Send specimen on ice! Eusebio Vivar MD LABORATORY Performing Organization Address [facility] Co de Phone Number [address] [address] * (ABNORMAL) C-REACTIVE PROTEIN (12/07/2023 4:05 PM CDT) C-Reactive Protein 82(H) <=4 mg/L [facility] Blood 12/07/2023 4:05 PM CDT 12/07/2023 4:51 PM CDT Eusebio Vivar MD LABORATORY Performing Organization Address [facility] Co de Phone Number [address] [address] * (ABNORMAL) SED RATE (ESR) (12/07/2023 4:05 PM CDT) Sed Rate 120(H) 2 - 10 mm/hr [facility] Blood 12/07/2023 4:05 PM CDT 12/07/2023 4:51 PM CDT Eusebio Vivar MD LABORATORY Performing Organization Address City/[facility] Co de Phone Number [address] [address] * BLOOD AEROBIC/ANAEROBIC CULTURE (12/07/2023 4:05 PM CDT) Final Report No growth after 5 days. [facility] Blood (Peripheral) 12/07/2023 4:05 PM CDT 12/07/2023 7:55 PM CDT Eusebio Vivar MD LAB MICROBIOLOGY [facility] [address] [place] [address] documented in this encounter Visit Diagnoses Diagnosis [...] (Due: Patch removed - Provider: JENNIFER NARAYANAN, [facility] - Comment: Time automatically adjusted from order being discontinued) prazosin (MINIPRESS) capsule 1 mg 1 mg, Oral, BEDTIME, First dose on Wed12/08/23 at 2000, Until Discontinued 2102 (Given - Provider: uSsie Matson RN) 2014 (Given - Provider: Kate [...]
--- OUTSIDE RECORDS SUMMARY | 2024-03-13 09:01 | XMS_ITS | Encounter Summary ---
Author Organization [facility] Address [address] [place] [address] Phone Care Team Providers Care Base Ply Hand Name Role Phone Unavailable Primary Care Provider [...]
--- OUTSIDE RECORDS SUMMARY | 2024-03-13 09:01 | XMS_ITS | Encounter Summary ---
Author Organization [facility] Address [address] [place] [address] Phone Care Team Providers Care Agricultural Commodities Grader Name Role Phone Unavailable Primary Care [...]
--- OUTSIDE RECORDS SUMMARY | 2024-03-13 09:01 | XMS_ITS | Encounter Summary ---
Author Organization [facility] Address [address] [place] [address] Phone Care Team Providers Care Surgical Instrument Technician Name Role Phone Unavailable Primary Care [...]
--- OUTSIDE RECORDS SUMMARY | 2024-03-13 09:01 | XMS_ITS | Encounter Summary ---
Author Organization [facility] Address [address] [place] [address] Phone Care Team Providers Care Industrial Staff Nurse Name Role Phone Unavailable Primary Care Provider Unavailabl e Reason for Visit * Auth/Cert (Routine) Specialty Diagnoses / Procedures Referred By Katherine tidwell Referred To Contact SURGERY Diagnoses Other acute osteomyelitis of left foot ([facility]) Eusebio Vivar MD [address] [place] [address] [address] Referral ID Status Reason Start Date Expiration Date Visits Re quested Visits Authorized [id number] 1 Encounter Details Date Type Department Care Team (Latest Contact Info) Description 12/07/2023 3:07 PM CDT - 12/07/2023 11:59 PM CDT Hospital [facility] [address] [address] Che Campos DPM [address] [phone] Discharge Disposition: Discharged to home or self [...] Routine 12/07/2023 3:23 PM CDT 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
--- OUTSIDE RECORDS SUMMARY | 2024-03-13 09:01 | XMS_ITS | Encounter Summary ---
Author Organization Formerly N[facility] Address [address] [place] [address] Phone Care Team Providers Care Consumer Marketing Specialist Name Role Phone Unavailable Primary Care [...]
--- OUTSIDE RECORDS SUMMARY | 2024-03-13 09:01 | XMS_ITS | Encounter Summary ---
Author Organization [facility] Address [address] [place] [address] Phone Care Team Providers Care Nuclear Licensing Engineer Name Role Phone Unavailable Primary Care [...]
--- OUTSIDE RECORDS SUMMARY | 2024-03-13 09:01 | XMS_ITS | Encounter Summary ---
Author Organization [facility] Address [address] [place] [address] Phone Care Team Providers Care Fruit Buyer Name Role Phone Unavailable Primary Care [...]
--- OUTSIDE RECORDS SUMMARY | 2024-03-13 09:01 | XMS_ITS | Encounter Summary ---
Author Organization [facility] Address [address] [place] [address] Phone Care Team Providers Care Soaking Room Operator Name Role Phone Unavailable Primary Care Provider Unavailabl e Reason for Visit * Reason Comments Post Op * Auth/Cert (Routine) Specialty Diagnoses / Procedures Referred By Katherine tidwell Referred To Contact SURGERY Diagnoses Other acute osteomyelitis of left foot ([facility]) Eusebio Vivar MD [address] [place] [address] [address] Referral ID Status Reason Start Date Expiration Date Visits Re quested Visits Authorized [id number] 1 1 Encounter Details Date Type Department Care Team ([facility] st Contact Info) Description 12/07/2023 2:30 PM CDT Office Visit [facility] [address] [address] Che Campos DPM [address] [address] 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 (POS) [facility] Organism METHICILLIN RESISTANT STAPHYLOCOCCUS AUREUS (MRSA)(POS) [facility] Organism CORYNEBACTERIUM STRIATUM GROUP(POS) [facility] Gram Stain Report No PMN's seen. No organisms seen. 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
--- OUTSIDE RECORDS SUMMARY | 2024-03-13 09:01 | XMS_ITS | Encounter Summary ---
Author Organization [facility] Address [address] [place] [address] Phone Care Team Providers Care Training Systems Officer Name Role Phone Unavailable Primary Care [...]
--- OUTSIDE RECORDS SUMMARY | 2024-03-13 09:02 | XMS_ITS | Encounter Summary ---
Author Organization [facility] Address [address] [place] [address] Phone Care Team Providers Care Sound Recording Technician Name Role Phone Unavailable Primary Care [...]
--- OUTSIDE RECORDS SUMMARY | 2024-03-13 09:02 | XMS_ITS | Encounter Summary ---
Author Organization [facility] Address [address] [place] [address] Phone Care Team Providers Care Body Joiner Name Role Phone Unavailable Primary Care Provider [...]
--- OUTSIDE RECORDS SUMMARY | 2024-03-13 09:02 | XMS_ITS | Encounter Summary ---
Author Organization [facility] Address [address] [place] [address] Phone Care Team Providers Care Advertising Rep Name Role Phone Unavailable Primary Care Provider [...]
--- OUTSIDE RECORDS SUMMARY | 2024-03-13 09:02 | XMS_ITS | Encounter Summary ---
Author Organization [facility] Address [address] [place] [address] Phone Care Team Providers Care Charge Nurse Name Role Phone Unavailable Primary Care [...]
--- OUTSIDE RECORDS SUMMARY | 2024-03-13 09:02 | XMS_ITS | Encounter Summary ---
Author Organization [facility] Address [address] [place] [address] Phone Care Team Providers Care Solderer Assembly Repair Name Role Phone Unavailable Primary Care Provider Unavailabl e Encounter Details Date Type Department Care Team (Late st Contact Info) Description 11/10/2023 Orders Only [facility] Film Room [facility] Radiology Department DANISHA [address] [address] Provider, [place] [address] Referral of patient (Primary Dx) Social History [...] FILMS (11/10/2023 10:46 AM CDT) Narrative User, [facility] - 11/10/2023 3:20 PM CDT Outside Film Only Outside Provider RAD OUTSIDE FILMS documented in this encounter Visit Diagnoses Diagnosis Referral of patient- Primary Referral of patient without examination or treatment documented in this encounter Additional Health Concerns Infection Onset Date Last Indicated Resolved Time 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
--- OUTSIDE RECORDS SUMMARY | 2024-03-13 09:02 | XMS_ITS | Encounter Summary ---
Author Organization [facility] Address [address] [place] [address] Phone Care Team Providers Care Inspector Crystal Name Role Phone Unavailable Primary Care Provider [...]
--- OUTSIDE RECORDS SUMMARY | 2024-03-13 09:02 | XMS_ITS | Encounter Summary ---
Author Organization [facility] Address [address] [place] [address] Phone Care Team Providers Care Flight Operation Coordinator Name Role Phone Unavailable Primary Care [...]
--- OUTSIDE RECORDS SUMMARY | 2024-03-13 09:02 | XMS_ITS | Encounter Summary ---
Author Organization [facility] Address [address] [place] [address] Phone Care Team Providers Care Product Development Worker Name Role Phone Unavailable Primary Care [...]
--- OUTSIDE RECORDS SUMMARY | 2024-03-13 09:02 | XMS_ITS | Clinical Summary ---
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 1 Each 07/24/19 23 Active durable medical equipment (DME)Indications:F ollow-up examination after orthopedic surgery,Osteomyeli tis of right foot, unspecified type (HC),Diabetic ulcer of right midfoot associated with type 2 diabetes mellitus, with necrosis of muscle (HC) SQUARED TOE POST OP SHOE, LARGE, REF: [phone] 1 Each 10/15/19 23 Active ondansetron (ZOFRAN [...] SQUARED TOE POST OP SHOE, LARGE, REF: [phone] 1 Each 12/31/19 23 Active acetaminophen (TYLENOL [...] doses. 75 Each 10/27/19 24 Active transmitter (Edsby G6 Transmitter) for continuous blood glucose monitor [...] Encounters Date Type Department Care Team Description 02/29/2024 Orders Only [facility] Scanner 1 scan: (1-Ord) [facility], 02/29/2024 02/27/2024 Refill [facility] [address] [place] [address] Jose R Foster MD Refill Request (Chlorhexidine) 02/22/2024 Refill [facility] [address] [place] [address] Jose R Foster MD Refill Request (Acetaminophen, Stimulant Laxative Plus) 02/22/2024 Refill [facility] [address] [place] [address] Jose R Foster MD Refill Request (Amlodipine, Cyclobenzaprine) 02/02/2024 3:20 PM CDT Office Visit [facility] [address] [place] [address] Jose R Foster MD Diabetes; Hospital F/U ([facility], 12/07/23, left foot); Wound Check (groin) 02/02/2024 Travel 01/25/2024 1:30 PM CDT Office Visit [facility] [address] [place] [address] Trey Kim MD Follow Up; Medication Management (feeling, good. I'm sad, because my taxi tickets didn't come in yet. And my back is really sore) 01/25/2024 Travel 01/24/2024 Refill [facility] [address] [place] [address] Jose R Foster MD Refill Request (Dexcom [...] Date Smoking Tobacco: Every Day Cigarettes 1.5 16.7 Started: 08/17/2002; Last attempted to quit: 08/17/2017 [...] st Contact Info) Description 03/29/2024 2:30 PM GRINDER BRAKE LINING Office Visit [facility] [address] [place] [address] Vini Hayden DPM [address] [place] [address] 05/11/2024 10:50 AM GRINDER BRAKE LINING Office Visit [facility] [address] [place] [address] Jose R Foster MD [address] [place] [address] Health Maintenance Due Date Last Done Comments [...] Procedure Name Priority Date/Time Associated Diagnosis Comments SCAN-EYE EXAM 02/29/2024 12:00 AM CDT HEMOGLOBIN A1C MONITORING (POCT) Routine 02/02/2024 3:14 [...] Recently Relevant to Health Maintenance Results * SCAN-EYE EXAM (02/29/2024 12:00 AM CDT) Scanner OTHER * (ABNORMAL) HEMOGLOBIN A1C MONITORING (POCT) (02/02/2024 3:14 PM CDT) POC HEMOGLOBIN A1C 10.0(H) <6.0 % OF TOTAL HGB [facility] Comment: Any point of care results exhibiting inconsistency with the patient's clinical status should be repeated using a different testing method. Blood BLOOD SPECIMEN / Unknown 02/02/2024 3:14 PM CDT 02/02/2024 3:14 PM CDT Jose R Foster MD CHEMISTRY [facility] [address] [place] [address], [facility] [address] [place] [address] * (ABNORMAL) CBC WITH AUTO DIFFERENTIAL (02/02/2024 [...] CDT Jose R Foster MD H[facility]ATOLOGY [facility] [address] [place] [address], [place] [phone] [facility] [address] [place] [address] * (ABNORMAL) BASIC METABOLIC PANEL (02/02/2024 3:13 PM CDT) GLUCOSE 326(H) 65 - 99 mg/dL [facility] Comment: ? Fasting reference interval [...] [facility] BUN/CREATININE RATIO SEE NOTE: (calc) [facility] Comment: ?? [...] CALCIUM 9.1 8.6 - 10.3 mg/dL [facility] Blood BLOOD SPECIMEN / Unknown 02/02/2024 3:13 PM CDT 02/02/2024 3:13 PM CDT Jose R Foster MD CHEMISTRY [facility] [address] [place] [address], [facility] [address] [place] [address] * (ABNORMAL) LIPID PANEL W REFLEX MEASURED LDL (07/27/2023 2:22 PM CDT) CHOLESTEROL,TOTAL 190 100 - 199 mg/dL 07/27/2023 9:24 PM CDT [facility] Comment: Cholesterol, Total Reference Ranges Desirable <200 mg/dL Borderline 200-239 mg/dL High >=240 mg/dL TRIGLYCERIDES 340(H) <150 mg/dL 07/27/2023 9:24 PM CDT [facility] HDL CHOLESTEROL 45 >40 mg/dL 9:24 PM CDT [facility] NON-HDL CHOLESTEROL 145(H) <145 mg/dl 07/27/2023 9:24 PM CDT [facility] CHOL/HDL RATIO 4.22 <4.50 07/27/2023 9:24 PM CDT [facility] LDL CHOLESTEROL 77 <=130 mg/dL 07/27/2023 9:24 PM CDT [facility] VLDL CHOLESTEROL 68(H) <=30 mg/dL 07/27/2023 9:24 PM CDT [facility] PROVIDER ORDERED STATUS RANDOM 07/27/2023 9:24 PM CDT [facility] Blood BLOOD SPECIMEN / Unknown Venipuncture / Unknown 07/27/2023 2:22 PM CDT 07/27/2023 2:25 PM CDT Trey Kim MD [facility]STRY [facility] [address] [place] [address], from Last 3 Months or Most Recently [...] 8:06 AM 11/08/2018 2:17 PM Care Teams Aircraft Rigging And Controls Mechanic Relationship Specialty Start Date End Date VotelJose R MD [address] [place] [address] PCP - General Family Practice 07/23/22 Nghia Arauz MD Family Practice 12/25/10
--- OUTSIDE RECORDS SUMMARY | 2024-03-13 09:02 | XMS_ITS | Encounter Summary ---
Author Organization [facility][Note 3] Address [address] [place] [address] Phone Care Team Providers Care Travel Guide Name Role Phone Unavailable Primary Care Provider [...]
--- OUTSIDE RECORDS SUMMARY | 2024-03-13 09:02 | XMS_ITS | Encounter Summary ---
Author Organization [facility] Address [address] [place] [address] Phone Care Team Providers Care Asp Net C Developer Name Role Phone Unavailable Primary Care [...]
--- OUTSIDE RECORDS SUMMARY | 2024-03-13 09:02 | XMS_ITS | Encounter Summary ---
Author Organization [facility] Address [address] [place] [address] Phone Care Team Providers Care Tipple Mechanic Name Role Phone Unavailable Primary Care [...]
--- OUTSIDE RECORDS SUMMARY | 2024-03-13 09:02 | XMS_ITS | Encounter Summary ---
Author Organization [facility] Address [address] [place] [address] Phone Care Team Providers Care Chicken Cleaner Name Role Phone Unavailable Primary Care [...]
== END 2024-03-13 08:55 | disposition home or self-care (01) ==
LOC: WOUND 08:55
PROVIDERS: PCP Family Medicine; Visit Provider Family Medicine
DX: E11.622 Type 2 diabetes mellitus with other skin ulcer (principal); L98.412 Non-pressure chronic ulcer of buttock with fat layer exposed; Z79.4 Long term (current) use of insulin
CPT/HCPCS: 11042

== ENCOUNTER 2024-03-20 08:57 | Outpatient (CLI) | payer MEDICARE, MEDICAID, SELFPAY ==
--- OUTSIDE RECORDS SUMMARY | 2024-03-20 08:58 | XMS_ITS | Encounter Summary ---
Author Organization [facility] Address [address] [place] [address] Phone Care Team Providers Care Project Inspector Name Role Phone Unavailable Primary Care [...] Recorded Sex Assigned at Not on file Legal Sex Male 1:09 PM CDT Gender Identity Not on file Sexual Orientation Not on file documented as of this encounter Plan of Treatment Not on file documented as of this encounter Visit Diagnoses Not on filedocumented in this encounter Additional Health Concerns Infection Onset Date Last Indicated Resolved Time 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
--- OUTSIDE RECORDS SUMMARY | 2024-03-20 08:58 | XMS_ITS | Encounter Summary ---
Author Organization [facility] Address [address] [place] [address] Phone Care Team Providers Care Insulation Professional Name Role Phone Unavailable Primary Care Provider Unavailabl e Encounter Details Date Type Department Care Team (Late st Contact Info) Description 01/20/2024 9:54 AM CDT - 01/20/2024 11:59 PM CDT Hospital Encounter [facility] [address] [place], [place] [address] SophiaDavid ward MD [address] [facility] [address] [place], [place] [id number] Routine, Hbo - [id number] Discharge Disposition: Discharged to home or self [...] this encounter Medications at Time of Discharge insulin GLARGINE (LANTUS) 100 units/mL subcutaneous injection vialIndications:T ype 2 Diabetes Mellitus Inject 35 UNITS subcutaneously every twenty-four hours. Indications: Type 2 Diabetes 4 insulin LISPRO (HUMALOG KWIKPEN) 100 UNIT/ML subcutaneous Kwikpen Inject 0.1 mL (10 UNITS) subcutaneously 3 times daily before meals. 4 chlorhexidine (PERIDEX) 0.12% mouth/throat solutionIndicatio ns:Gingivitis Swish and spit 15 mL by mouth daily. Indications: Gum Inflammation 4 docusate sodium (COLACE) 100 mg oral capsule Take 1 capsule (100 mg) by mouth twice daily as needed for Constipation. 4 hydrOXYzine pamoate (VISTARIL) 25 mg oral capsuleIndication s:Pruritus Take 1-2 capsules (25-50 mg) by mouth every 6 hours as needed for Itching. Indications: Itching 4 loratadine (CLARITIN) 10 mg oral tabletIndications :Seasonal Allergic Rhinitis Take 1 tablet (10 mg) by mouth daily. Indications: Hayfever 4 milk of magnesia 400 mg/5 mL oral suspensionIndicat ions:Acid Indigestion Take 15 mL by mouth daily as needed for Constipation. Indications: Acid Indigestion 4 paliperidone palmitate ER (INVEGA SUSTENNA) 156 mg/mL IM injectionIndicati ons:Schizoaffecti ve Disorder Inject 1 mL (156 mg) into a muscle every month. Indications: Schizoaffective Disorder 4 acetaminophen (TYLENOL) 325 mg oral tabletIndications :Fever,Pain Take 3 tablets (975 mg) by mouth 3 times daily. Indications: Fever, Pain 4 escitalopram (LEXAPRO) 20 mg oral tabletIndications :Generalized Anxiety Disorder Take 1 tablet (20 mg) by mouth at bedtime. Indications: Generalized Anxiety Disorder 4 rosuvastatin (CRESTOR) 10 mg oral tabletIndications :Mixed Dyslipidemia Take 1 tablet (10 mg) by mouth at bedtime. Indications: Elevation of Both Cholesterol and Triglycerides in Blood 4 traZODone (DESYREL) 50 mg oral tabletIndications :Insomnia Take 1 tablet (50 mg) by mouth at bedtime. Indications: Trouble Sleeping 4 amLODIPine (NORVASC) 10 mg oral tabletIndications :Hypertension Take 1 tablet (10 mg) by mouth daily. Indications: High Blood Pressure Disorder 4 bisacodyl (DULCOLAX) 10 mg rectal suppositoryIndica tions:Constipatio n 1 suppository (10 mg) by Rectal route daily as needed for Constipation. Indications: Constipation 4 cyclobenzaprine (FLEXERIL) 10 mg oralIndications:M uscle Spasm Take 1 tablet (10 mg) by mouth 3 times daily. Indications: Muscle Spasm 4 nicotine (NICOTROL) 14 mg/ 24hr transdermal patch 24 HRIndications:Jayesh otine Dependence Apply 1 patch to skin daily. Indications: Nicotine Addiction 4 nicotine polacrilex (NICORELIEF) 2 mg mouth/throat gumIndications:Ni cotine Dependence 1 each (2 mg) by Gum route every 1 hour as needed for Nicotine Craving. Indications: Nicotine Addiction 4 ondansetron (ZOFRAN) 4 mg oral TABSIndications:N ausea and Vomiting Take 1 tablet (4 mg) by mouth every 6 hours as needed for Nausea/Vomiting. Indications: Nausea and Vomiting 4 polyethylene glycol 3350 (MIRALAX;GLYCOLAX ) 17 g oral packetIndications :Constipation Take 17 g by mouth daily. Indications: ConstipationTake 1 capful to 17 gm zo mixed with full glass of water every day as directed. 4 sennosides (SENOKOT) 17.2 mg oral TABSIndications:F ourniers gangrene (HHS) Take 1 tablet (17.2 mg) by mouth twice daily. 4 prazosin (MINIPRESS) 1 mg oral capsuleIndication s:Hypertension Take 1 capsule (1 mg) by mouth at bedtime. Indications: High Blood Pressure Disorder 4 documented as of this encounter Progress Notes [...] hesitate to call the Hyperbaric Department at [phone] during clinic hours or page principal solutions architect staff with any updates, questions, or concerns. Cosigned by David Cortes MD at 01/20/2024 2:49 PM CDT Associated attestation - David Cortes MD - 01/20/2024 2:49 PM CDT Continuous attending physician supervision was provided throughout the hyperbaric oxygen treatment.I have reviewed and agree with treatment note created by the Hyperbaric Medicine Fellow, Dr. Mcconnell. David Cortes MD, 01/20/2024 2:49 PM * David Cortes MD - 01/20/2024 10:30 AM CDT [facility]IC[facility] TREATMENT SUMMARY Consulting physician: Dr. [...] urged continued close follow up with his Child Care Lead Teacher for local wound care and monitoring. We noted our availability should future concern of complicated wound develop or as needed surrounding and in support of surgical interventions. Please do not hesitate to call the Hyperbaric Department at [phone] during clinic hours or page principal solutions architect staff with any updates, questions, or [...] left foot ([facility]) documented in this encounter Additional Health Concerns Infection Onset Date Last Indicated Resolved Time 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
--- OUTSIDE RECORDS SUMMARY | 2024-03-20 08:58 | XMS_ITS | Referral Summary ---
Author Organization [employer] Address [address] [place] [address] Phone Care Team Providers Care Piano Refinisher Name Role Phone Unavailable Primary Care Provider Unavailabl e Source Comments [employer] is fully rolled out on [employer]. 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[facility]) Discharge Disposition: Discharged to home or self care 01/19/2024 Travel 01/19/2024 10:30 AM CDT - 01/19/2024 11:59 PM CDT Hospital Encounter [facility] [address] [place] [address] Nikolai Martinez MD Routine, Hbo - Discharge Disposition: Discharged to home or self care 01/18/2024 Travel 01/18/2024 10:06 AM CDT - 01/18/2024 11:59 PM CDT Hospital Encounter [facility] [address] [place] [phone] David Cortes MD Routine, Hbo - Discharge Disposition: Discharged to home or self care 01/17/2024 Travel 01/17/2024 9:42 AM CDT - 01/17/2024 11:59 PM CDT Hospital Encounter [facility] [address] [place] [phone] Douglas Morris II, MD Routine, Hbo - Discharge Disposition: Discharged to home or self care 01/12/2024 Travel 01/12/2024 9:53 AM CDT - 01/12/2024 11:59 PM CDT Hospital Encounter [facility] [address] [place] [address] David Cortes MD Routine, Hbo - Discharge Disposition: Discharged to home or self care 01/11/2024 Travel 01/11/2024 10:01 AM CDT - 01/11/2024 11:59 PM CDT Hospital Encounter [facility] [address] [place] [id number] Nikolai Martinez MD Routine, Hbo - Discharge Disposition: Discharged to home or self care 01/07/2024 Travel 01/07/2024 10:06 AM CDT - 01/07/2024 11:59 PM CDT Hospital Encounter [facility] [address] [place] [address] Maggy Horan MD Routine, Hbo - Discharge Disposition: Discharged to home or self care 01/06/2024 Travel 01/06/2024 9:40 AM CDT - 01/06/2024 11:59 PM CDT Hospital Encounter [facility] [address] [place] [address] David Cortes MD Discharge Disposition: Discharged to home or self care 01/06/2024 9:50 AM CDT - 01/06/2024 11:59 PM CDT Hospital Encounter [facility] [address] [place] [id number] David Cortes MD Routine, Hbo - Discharge Disposition: Discharged to home or self care 01/05/2024 Orders Only [facility] [address] [place] [id number] Talita Patel MD 01/05/2024 Travel 01/05/2024 9:32 AM CDT - 01/05/2024 11:59 PM CDT Hospital Encounter [facility] [address] [place] [phone] David Cortes MD Routine, Hbo - Discharge Disposition: Discharged to home or self care 01/04/2024 Travel 01/04/2024 10:16 AM CDT - 01/04/2024 11:59 PM CDT Hospital Encounter [facility] [address] [phone] Douglas Morris II, MD Routine, Hbo - Discharge Disposition: Discharged to home or self care 01/03/2024 Travel 01/03/2024 9:33 AM CDT - 01/03/2024 11:59 PM CDT Hospital Encounter [facility] [address] [place] [phone] Narcisa Sanford MD Routine, Hbo - Discharge Disposition: Discharged to home or self care 12/31/2023 Travel 12/31/2023 9:51 AM CDT - 12/31/2023 11:59 PM CDT Hospital Encounter [facility] [address] [place] [phone] Douglas Morris II, MD Routine, Hbo - Discharge Disposition: Discharged to home or self care 12/31/2023 1:00 PM CDT [facility] [address] [address] Afshan Sims DPM S/P foot surgery, right (Primary Dx) Discharge Disposition: Discharged to home or self care 12/30/2023 Travel 12/30/2023 9:49 AM CDT - 12/30/2023 11:59 PM CDT Hospital Encounter [facility] [address] [place] [phone] David Cortes MD Routine, Hbo - Discharge Disposition: Discharged to home or self care 12/29/2023 Travel 12/29/2023 9:38 AM CDT - 12/29/2023 11:59 PM CDT Hospital Encounter [facility] [address] [place] [phone] Nikolai Martinez MD Routine, Hbo - Discharge Disposition: Discharged to home or self care 12/28/2023 Telephone [facility] [address] [place] [phone] Dayanna Rodriguez RN Care Coordination (Called to discuss outpatient HBOT schedule) 12/27/2023 Travel 12/27/2023 9:00 AM CDT Nurse Only [facility] [address] [place] [phone] Afshan Sims DPM Discharge Disposition: Discharged to home or self care 12/24/2023 Travel 12/24/2023 10:00 AM CDT [facility] [address] [place] [phone] Jose Castelan, COMPUTER AIDED DESIGN DESIGNER, [employer] 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); Soft tissue infection Discharge Disposition: Discharged to home or self care 12/23/2023 Travel 12/23/2023 9:33 AM CDT - 12/23/2023 11:59 PM CDT Hospital Encounter [facility] [address] [place] [phone] Nikolai Martinez MD Routine, Hbo - Discharge Disposition: Discharged to home or self care 12/22/2023 Travel 12/22/2023 9:43 AM CDT - 12/22/2023 11:59 PM CDT Hospital Encounter [facility] [address] [place] [phone] Narcisa Sanford MD Routine, Hbo - Discharge Disposition: Discharged to home or self care 12/20/2023 Travel 12/20/2023 9:34 AM CDT - 12/20/2023 11:59 PM CDT Hospital Encounter [facility] [address] [place] [address] Shawn Vines MD Routine, Hbo - Discharge Disposition: Discharged to home or self care from Last 3 Months Allergies No known active allergies Medications * Be aware that medications may not be up to date as of this document. Always verify current medications with patient. chlorhexidine (PERIDEX) 0.12% mouth/throat solutionIndicati ons:Gingivitis Swish and spit 15 mL by mouth daily. Indications: Gum Inflammation 11/24/19 24 Active docusate sodium (COLACE) 100 mg oral capsule Take 1 capsule (100 mg) by mouth twice daily as needed for Constipation. 11/24/19 24 Active hydrOXYzine pamoate (VISTARIL) 25 mg oral capsuleIndicatio ns:Pruritus Take 1-2 capsules (25-50 mg) by mouth every 6 hours as needed for Itching. Indications: Itching 11/24/19 24 Active loratadine (CLARITIN) 10 mg oral tabletIndication s:Seasonal Allergic Rhinitis Take 1 tablet (10 mg) by mouth daily. Indications: Hayfever 11/24/19 24 Active milk of magnesia 400 mg/5 mL oral suspensionIndica tions:Acid Indigestion Take 15 mL by mouth daily as needed for Constipation. Indications: Acid Indigestion 11/24/19 24 Active paliperidone palmitate ER (INVEGA SUSTENNA) 156 mg/mL IM injectionIndicat ions:Schizoaffec tive Disorder Inject 1 mL (156 mg) into a muscle every month. Indications: Schizoaffective Disorder 11/24/19 24 Active acetaminophen (TYLENOL) 325 mg oral tabletIndication s:Fever,Pain Take 3 tablets (975 mg) by mouth 3 times daily. Indications: Fever, Pain 11/24/19 24 Active escitalopram (LEXAPRO) 20 mg oral tabletIndication s:Generalized Anxiety Disorder Take 1 tablet (20 mg) by mouth at bedtime. Indications: Generalized Anxiety Disorder 11/24/19 24 Active rosuvastatin (CRESTOR) 10 mg oral tabletIndication s:Mixed Dyslipidemia Take 1 tablet (10 mg) by mouth at bedtime. Indications: Elevation of Both Cholesterol and Triglycerides in Blood 11/24/19 Active traZODone (DESYREL) 50 mg oral tabletIndication s:Insomnia Take 1 tablet (50 mg) by mouth at bedtime. Indications: Trouble Sleeping 11/24/19 Active amLODIPine (NORVASC) 10 mg oral tabletIndication s:Hypertension Take 1 tablet (10 mg) by mouth daily. Indications: High Blood Pressure Disorder 11/24/19 Active bisacodyl (DULCOLAX) 10 mg rectal suppositoryIndic ations:Constipat ion 1 suppository (10 mg) by Rectal route daily as needed for Constipation. Indications: Constipation 11/24/19 Active cyclobenzaprine (FLEXERIL) 10 mg oralIndications: Muscle Spasm Take 1 tablet (10 mg) by mouth 3 times daily. Indications: Muscle Spasm 11/24/19 Active nicotine (NICOTROL) 14 mg/ 24hr transdermal patch 24 HRIndications:Ni cotine Dependence Apply 1 patch to skin daily. Indications: Nicotine Addiction 11/25/19 Active nicotine polacrilex (NICORELIEF) 2 mg mouth/throat gumIndications:N icotine Dependence 1 each (2 mg) by Gum route every 1 hour as needed for Nicotine Craving. Indications: Nicotine Addiction 11/24/19 Active ondansetron (ZOFRAN) 4 mg oral TABSIndications: Nausea and Vomiting Take 1 tablet (4 mg) by mouth every 6 hours as needed for Nausea/Vomiting. Indications: Nausea and Vomiting 11/24/19 Active polyethylene glycol 3350 (MIRALAX;GLYCOLA X) 17 g oral packetIndication s:Constipation Take 17 g by mouth daily. Indications: ConstipationTake 1 capful to 17 gm zo mixed with full glass of water every day as directed. 11/25/19 Active sennosides (SENOKOT) 17.2 mg oral TABSIndications: 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HHS) Take 1 tablet (17.2 mg) by mouth twice daily. 11/24/19 Active prazosin (MINIPRESS) 1 mg oral capsuleIndicatio ns:Hypertension Take 1 capsule (1 mg) by mouth at bedtime. Indications: High Blood Pressure Disorder 11/24/19 Active insulin GLARGINE (LANTUS) 100 units/mL subcutaneous injection vialIndications: Type 2 Diabetes Mellitus Inject 35 UNITS subcutaneously every twenty-four hours. Indications: Type 2 Diabetes 12/13/19 Active insulin LISPRO (HUMALOG KWIKPEN) 100 UNIT/ML subcutaneous Kwikpen Inject 0.1 mL (10 UNITS) subcutaneously 3 times daily before meals. 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 POC Glucose 323(H) 70 - 100 mg/dL [facility] Blood 01/19/2024 12:2 2 PM CDT us Nikolai Martinez MD LABORATORY Final Result [facility] CARE [address] [place] [address], * HBO ANGIOGRAPHY EXTREMITY UNILATERAL (01/06/2024 9:40 [...] nicely. David Cortes MD, 01/06/2024 6:00 PM us David Cortes MD RAD ULT Final Res ult * (ABNORMAL) GLYCOSYLATED HGB - A1C (12/08/2023 4:47 PM CDT) Hemoglobin A1C 8.5(H) 4.0 - 5.6 % [facility] Comment: Increased risk for [...] 197(H) 68 - 114 [facility] Comment: The estimated Average Glucose (eAG) was calculated using an equation derived from a study of 507 adults with type 1, type 2, or no diabetes. Minority populations were underrepresented and children were not included. The eAG is not equivalent to a fasting glucose concentration. Blood 12/08/2023 4:47 PM CDT 12/08/2023 5:07 PM CDT Narrative [facility] - 12/08/2023 6:01 PM CDT If not done in the last 30 days. us Afshan Shafer PA-C LABORATORY Final Res ult [facility] [address] [address] * HIV COMBO (11/15/2023 7:39 AM CDT) HIV Antigen-Antibody Nonreactive Nonreactive [facility] Comment:Performance characte ristics have not been established with this test on patients less than 2 years of age. Blood 11/15/2023 7:39 AM CDT 11/15/2023 7:58 AM CDT us Zac Jackson MD LABORATORY Final Result [facility] [address] [place] [address] from Last 3 Months or Most Recently Relevant to Health Maintenance Additional Health Concerns Infection Onset Date Last Indicated MRSA 11/17/2023 12/08/2023 [place] [facility] Advance Directives For more information, please contact: [phone] * Full Code (Latest Code Status on [...]
--- OUTSIDE RECORDS SUMMARY | 2024-03-20 08:58 | XMS_ITS | Clinical Summary ---
Author Organization [employer] Address [address] [facility] [facility] [place] [address] Phone Care Team Providers Care Baby Formula Mixer Name Role Phone Unavailable Primary Care Provider Unavailabl e Source Comments [email or web address] is fully rolled out on [employer]. Last update 10/12/08.[employer] Allergies No known active allergies Medications * [...] as needed for Constipation. Indications: Acid Indigestion 07/17/20 24 Active paliperidone palmitate ER (INVEGA SUSTENNA) 156 mg/mL IM injectionIndicat ions:Schizoaffec tive Disorder Inject 1 mL (156 mg) into a muscle every month. Indications: Schizoaffective Disorder 11/24/19 Active acetaminophen (TYLENOL) 325 mg oral tabletIndication s:Fever,Pain Take 3 tablets (975 mg) by mouth 3 times daily. Indications: Fever, Pain 11/24/19 Active escitalopram (LEXAPRO) 20 mg oral tabletIndication s:Generalized Anxiety Disorder Take 1 tablet (20 mg) by mouth at bedtime. Indications: Generalized Anxiety Disorder 11/24/19 Active rosuvastatin (CRESTOR) 10 mg oral tabletIndication [...] subcutaneously 3 times daily before meals. 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[facility]) Discharge Disposition: Discharged to home or self care 01/20/2024 9:54 AM CDT - 01/20/2024 11:59 PM CDT Hospital [place] [facility] [place] [address] [place] [address] David Cortes MD Routine, Hbo - Discharge Disposition: Discharged to home or self care 01/20/2024 Travel 01/19/2024 10:30 AM CDT - 01/19/2024 11:59 PM CDT Hospital Encounter [facility] [place] [facility] [address] [address] Nikolai Martinez MD Routine, Hbo - Discharge Disposition: Discharged to home or self care 01/19/2024 Travel 01/18/2024 10:06 AM CDT - 01/18/2024 11:59 PM CDT Hospital Encounter [facility] [place] [facility] [address] [place] [address] David Cortes MD Routine, Hbo - Discharge Disposition: Discharged to home or self care 01/18/2024 Travel 01/17/2024 9:42 AM CDT - 01/17/2024 11:59 PM CDT Hospital Encounter [facility] [place] [facility] [address] [address] Douglas Morris II, MD Routine, Hbo - Discharge Disposition: Discharged to home or self care 01/17/2024 Travel 01/12/2024 9:53 AM CDT - 01/12/2024 11:59 PM CDT Hospital En[place] [facility] [place] [facility] [address] [address] David Cortes MD Routine, Hbo - Discharge Disposition: Discharged to home or self care 01/12/2024 Travel 01/11/2024 10:01 AM CDT - 01/11/2024 11:59 PM CDT Hospital Encounter [facility] [place] [facility] [address] [place] [address] Nikolai Martinez MD Routine, Hbo - Discharge Disposition: Discharged to home or self care 01/11/2024 Travel 01/07/2024 10:06 AM CDT - 01/07/2024 11:59 PM CDT Hospital Encounter [facility] [place] [facility] [address] [place] [address] Maggy Horan MD Routine, Hbo - Discharge Disposition: Discharged to home or self care 01/07/2024 Travel 01/06/2024 9:50 AM CDT - 01/06/2024 11:59 PM CDT Hospital Encounter [facility] [place] [facility] [address] [place] [address] David Cortes MD Routine, Hbo - Discharge Disposition: Discharged to home or self care 01/06/2024 9:40 AM CDT - 01/06/2024 11:59 PM CDT Hospital Encounter [facility] [place] [facility] [address] [place] [address] David Cortes MD Discharge Disposition: Discharged to home or self care 01/06/2024 Travel 01/05/2024 9:32 AM CDT - 01/05/2024 11:59 PM CDT Hospital Encounter [facility] [place] [facility] [address] [place] [address] David Cortes MD Routine, Hbo - Discharge Disposition: Discharged to home or self care 01/05/2024 Orders Only [facility] [place] [facility] [address] [place] [address] Talita Patel MD 01/05/2024 Travel 01/04/2024 10:16 AM CDT - 01/04/2024 11:59 PM CDT Hospital Encounter [facility] [place] [facility] [address] [place] [address] Douglas Morris II, MD Routine, Hbo - Discharge Disposition: Discharged to home or self care 01/04/2024 Travel 01/03/2024 9:33 AM CDT - 01/03/2024 11:59 PM CDT Hospital Encounter [facility] [place] [facility] [address] [place] [address] Narcisa Sanford MD Routine, Hbo - Discharge Disposition: Discharged to home or self care 01/03/2024 Travel 12/31/2023 1:00 PM CDT [facility] [address] [address] Afshan Sims, CHANGM S/P foot surgery, right (Primary Dx) Discharge Disposition: Discharged to home or self care 12/31/2023 9:51 AM CDT - 12/31/2023 11:59 PM CDT Hospital Encounter [facility] [place] [facility] [address] [address] Douglas Morris II, MD Routine, Hbo - Discharge Disposition: Discharged to home or self care 12/31/2023 Travel 12/30/2023 9:49 AM CDT - 12/30/2023 11:59 PM CDT Hospital Encounter [facility] [place] [facility] [address] [address] David Cortes MD Routine, Hbo - Discharge Disposition: Discharged to home or self care 12/30/2023 Travel 12/29/2023 9:38 AM CDT - 12/29/2023 11:59 PM CDT Hospital Encounter [facility] [place] [facility] [address] [address] Nikolai Martinez MD Routine, Hbo - Discharge Disposition: Discharged to home or self care 12/29/2023 Travel 12/28/2023 Telephone [facility] [place] [facility] [address] [address] Dayanna Rodriguez RN Care Coordination (Called to discuss outpatient HBOT schedule) 12/27/2023 9:00 AM CDT Nurse Only [facility] [address] [place] [address] Afshan Sims, DPM Discharge Disposition: Discharged to home or self care 12/27/2023 Travel 12/24/2023 10:00 AM CDT [facility] [address] [place] [address] Jose Castelan, METAL TREATER, CAR DISPATCHER 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); Soft tissue infection Discharge Disposition: Discharged to home or self care 12/24/2023 Travel 12/23/2023 9:33 AM CDT - 12/23/2023 11:59 PM CDT Hospital Encounter [facility] [place] [facility] [address] [place] [address] Nikolai Martinez MD Routine, Hbo - Discharge Disposition: Discharged to home or self care 12/23/2023 Travel 12/22/2023 9:43 AM CDT - 12/22/2023 11:59 PM CDT Hospital Encounter [facility] [address] [place] [address] Narcisa Sanford MD Routine, Hbo - Discharge Disposition: Discharged to home or self care 12/22/2023 Travel 12/20/2023 9:34 AM CDT - 12/20/2023 11:59 PM CDT Hospital Encounter [facility] [address] [address] [place] [address] Shawn Vines MD Routine, Hbo - Discharge Disposition: Discharged to home or self care 12/20/2023 Travel from Last 3 Months Immunizations Name [...] POC Glucose 323(H) 70 - 100 mg/dL [facility] - POINT OF CARE Blood 01/19/2024 12:2 2 PM CDT us Nikolai Martinez MD LABORATORY Final Result [facility] - POINT OF CARE [address] [place] [address], * HBO ANGIOGRAPHY EXTREMITY UNILATERAL (01/06/2024 9:40 [...] A1C 8.5(H) 4.0 - 5.6 % [facility] [...] Average Glucose 197(H) 68 - 114 [facility] [place] CDT 12/08/2023 5:07 PM CDT Narrative [facility] - 12/08/2023 6:01 PM CDT If not done in the last 30 days. us Afshan Shafer PA-C LABORATORY Final Res ult [facility] [place] [facility] [address] [address] * HIV COMBO (11/15/2023 7:39 AM CDT) HIV Antigen-Antibody Nonreactive Nonreactive [facility] Comment:Performance characte ristics have not been established with this test on patients less than 2 years of age. Blood 11/15/2023 7:39 AM CDT 11/15/2023 7:58 AM CDT us Zac Jackson MD LABORATORY Final Result [facility] [address] [place] [address] from Last 3 Months or Most Recently Relevant to Health Maintenance Additional Health Concerns Infection Onset Date Last Indicated MRSA 11/17/2023 12/08/2023 Insurance [place] [facility] Advance Directives For more information, please contact: [phone] * Full Code (Latest Code Status on [...]
--- OUTSIDE RECORDS SUMMARY | 2024-03-20 08:59 | XMS_ITS | Encounter Summary ---
Author Organization [facility] Address [address] [place] [address] Phone Care Team Providers Care Telehealth Case Manager Name Role Phone Unavailable Primary Care [...]
--- OUTSIDE RECORDS SUMMARY | 2024-03-20 08:59 | XMS_ITS | Encounter Summary ---
Author Organization [facility] Address [address] [facility] [place] [address] Phone Care Team Providers Care Disease Management Nurse Name Role Phone Unavailable Primary Care Provider Unavailabl e Encounter Details Date Type Department Care Team (Late st Contact Info) Description 01/05/2024 Orders Only [facility] [address] [place], [place] [address] Talita Patel MD [address] [place], [place] [id number] Social History Tobacco Use Types Packs/Day Years [...] Cortes MD, 01/06/2024 6:00 PM us David Cotres MD RAD ULT Final Res ult documented in this encounter Visit Diagnoses Not on filedocumented in this encounter Additional Health Concerns Infection Onset Date Last Indicated Resolved Time 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
--- OUTSIDE RECORDS SUMMARY | 2024-03-20 08:59 | XMS_ITS | Encounter Summary ---
Author Organization [facility] Address [address] [place] [address] Phone Care Team Providers Care Green Lumber Grader Name Role Phone Unavailable Primary Care Provider Unavailabl e Encounter Details Date Type Department Care Team (Late st Contact Info) Description 01/05/2024 9:32 AM CDT - 01/05/2024 11:59 PM CDT Hospital [place] [facility] [facility] [address] [facility] [address] [place], [place] [phone] SophiaDavid ward MD 701 [facility] [address] [place], [place] [address] Routine, Hbo - [id number] Discharge Disposition: Discharged to home or self [...] bedtime. Indications: High Blood Pressure Disorder 4 linezolid (ZYVOX) 600 mg oral tabletIndications :Diabetic Foot Infection Take 1 tablet (600 mg) by mouth twice daily for 25 days. Indications: Infection of Foot in Diabetic Patient 4 01/06/20 24 documented as of this encounter Progress Notes [...] hesitate to call the Hyperbaric Department at [phone] during clinic hours or page track service person staff with any updates, questions, or concerns. Cosigned by David Cortes MD at 01/05/2024 1:54 PM CDT Associated attestation - David Cortes [...] POC Glucose 328(H) 70 - 100 mg/dL [facility] - POINT OF CARE Blood 01/05/2024 9:54 AM CDT us David Cortes MD LABORATORY Final Res ult [facility] POINT [facility] CARE [address] [place] [address], [place] documented in this encounter Visit Diagnoses Diagnosis Soft tissue infection- Primary Unspecified infectious and parasitic diseases Other acute osteomyelitis of left foot ([facility]) documented in this encounter Additional Health Concerns Infection Onset Date Last Indicated Resolved Time 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
--- OUTSIDE RECORDS SUMMARY | 2024-03-20 08:59 | XMS_ITS | Encounter Summary ---
Author Organization 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 They will be delivered to patient once they are ready. He is to begin wearing diabetic shoes and inserts once they arrive -There are no restrictions from our standpoint for the patient -NH paperwork completed and returned to patient Return [...] He is hoping he can move his care home. 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
--- OUTSIDE RECORDS SUMMARY | 2024-03-20 08:59 | XMS_ITS | Encounter Summary ---
Author Organization [facility] Address [address] [place] [address] Phone Care Team Providers Care Diagrammer And Seamer Name Role Phone Unavailable Primary Care Provider Unavailabl e Encounter Details Date Type Department Care Team (Late st Contact Info) Description 01/06/2024 9:40 AM CDT - 01/06/2024 11:59 PM CDT Hospital En[place] [facility] [place] [facility] [address] [place], [place] [phone] David Cortes MD 701 [facility] [address] [place], [place] [phone] Discharge Disposition: Discharged to home or self [...] Cortes MD RAD ULT Final Res ult documented in this encounter Visit Diagnoses Not on filedocumented in this encounter Additional Health Concerns Infection Onset Date Last Indicated Resolved Time 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
--- OUTSIDE RECORDS SUMMARY | 2024-03-20 08:59 | XMS_ITS | Encounter Summary ---
Author Organization [facility] Address [address] [place] [address] Phone Care Team Providers Care Underwriting Clerks Supervisor Name Role Phone Unavailable Primary Care [...]
--- OUTSIDE RECORDS SUMMARY | 2024-03-20 08:59 | XMS_ITS | Encounter Summary ---
Author Organization [facility] Address [address] [place] [address] Phone Care Team Providers Care Fire Production Operator Name Role Phone Unavailable Primary Care [...]
--- OUTSIDE RECORDS SUMMARY | 2024-03-20 08:59 | XMS_ITS | Encounter Summary ---
Author Organization [facility] Address [address] [place] [address] Phone Care Team Providers Care Desktop Publishing Associate Name Role Phone Unavailable Primary Care [...]
--- OUTSIDE RECORDS SUMMARY | 2024-03-20 08:59 | XMS_ITS | Encounter Summary ---
Author Organization [facility] Address [address] [place] [address] Phone Care Team Providers Care Ammonia Solution Preparer Name Role Phone Unavailable Primary Care [...]
--- OUTSIDE RECORDS SUMMARY | 2024-03-20 08:59 | XMS_ITS | Encounter Summary ---
Author Organization [facility] Address [address] [place] [address] Phone Care Team Providers Care Screener Perfumer Name Role Phone Unavailable Primary Care Provider [...]
--- OUTSIDE RECORDS SUMMARY | 2024-03-20 08:59 | XMS_ITS | Encounter Summary ---
Author Organization [facility] Address [address] [facility] [address] Phone Care Team Providers Care Kitchen Clerk Name Role Phone Unavailable Primary Care Provider Unavailabl e Encounter Details Date Type Department Care Team (Latest Contact Info) Description 01/19/2024 10:30 AM CDT - 01/19/2024 11:59 PM CDT Hospital Encounter [facility] [address] [place] [address] Nikolai Martinez MD [address] [facility] [place], [place] [address] Zfagnnb, Psn - [phone] Discharge Disposition: Discharged to home or self [...] hesitate to call the Hyperbaric Department at [phone] during clinic hours or page farm contractor staff with any updates, questions, or concerns. Cosigned by Nikolai Martinez MD at 01/19/2024 5:14 PM CDT Associated attestation - Nikolai Martinez MD - [...] (ABNORMAL) POC GLUCOSE (01/19/2024 12:22 PM CDT) POC Glucose 323(H) 70 - 100 mg/dL [facility] - POINT OF CARE Blood 01/19/2024 12:2 2 PM CDT us Nikolai Martinez MD LABORATORY Final Result [facility] - POINT OF CARE [address] [place] [address], [place] * (ABNORMAL) POC GLUCOSE (01/19/2024 9:58 AM CDT) POC Glucose 353(H) 70 - 100 mg/dL [facility] - POINT OF CARE Blood 01/19/2024 9:58 AM CDT us Provider Unknown LABORATORY Final Result [facility] - POINT OF CARE [address] [place] [address], documented in this encounter Visit Diagnoses Diagnosis Soft tissue infection- Primary Unspecified infectious and parasitic diseases Other acute osteomyelitis of left foot (CMS/HHS) documented in this encounter Additional Health Concerns Infection Onset Date Last Indicated Resolved Time 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
--- OUTSIDE RECORDS SUMMARY | 2024-03-20 08:59 | XMS_ITS | Encounter Summary ---
Author Organization [facility] Address [address] [place] [address] Phone Care Team Providers Care Laborer Car Barn Name Role Phone Unavailable Primary Care Provider Unavailabl e Encounter Details Date Type Department Care Team (Latest Contact Info) Description 01/17/2024 9:42 AM CDT - 01/17/2024 11:59 PM CDT Hospital Encounter [facility] 701 [facility] 9[address] [place] [address] Masters, Douglas Osuna II, MD 701 [facility] [address] [place], [place] [phone] Routine, Vxl - [phone] Discharge Disposition: Discharged to home or self [...] multiple numbers for his convenience locally in [place] for evaluation. HPI, problem list, nursing notes, [...] hesitate to call the Hyperbaric Department at [phone] during clinic hours or page early childhood education instructor staff with any updates, questions, or concerns. Cosigned by Douglas Morris II, MD at 01/17/2024 2:59 PM CDT Associated attestation - Douglas Morris II, MD [...] POC Glucose 288(H) 70 - 100 mg/dL [facility] - POINT OF CARE Blood 01/17/2024 12:1 9 PM CDT us Douglas Morris II, MD LABORATORY Final Re sult Performing Organization Address [facility] Co de Phone Number [facility] POINT OF CARE [address] [place] [address], [place] * (ABNORMAL) POC GLUCOSE (01/17/2024 9:59 AM CDT) POC Glucose 323(H) 70 - 100 mg/dL [facility] POINT OF CARE Blood 01/17/2024 9:59 AM CDT us Douglas Morris II, MD LABORATORY Final Re sult Performing Organization Address [facility] de Phone Number [facility] POINT [facility] [address] [place] [address], [place] documented in this encounter Visit Diagnoses Diagnosis Soft tissue infection- Primary Unspecified infectious and parasitic diseases Other acute osteomyelitis of left foot (CMS/HHS) documented in this encounter Administered Medications Inactive Administered Medications - up to 3 most recent administrations Medication Order MAR Action Action Date Dose Rate Site ibuprofen (MOTRIN;ADVIL) tablet 600 mg 600 mg, Oral, ONE TIME PRN, Starting on 01/17/24 at 1145, Until Wed01/18/24 at 0312, For HBO Therapy Plan useIndications:Soft tissue infection,Other acute osteomyelitis of left foot (CMS/HHS) Given 01/17/2024 11:47 AM CDT 600 mg documented in this encounter Additional Health Concerns Infection Onset Date Last Indicated Resolved Time 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
--- OUTSIDE RECORDS SUMMARY | 2024-03-20 08:59 | XMS_ITS | Encounter Summary ---
Author Organization [facility] Address [address] [place] [address] Phone Care Team Providers Care Sample Carrier Name Role Phone Unavailable Primary Care Provider Unavailabl e Encounter Details Date Type Department Care Team (Late st Contact Info) Description 01/06/2024 9:50 AM CDT - 01/06/2024 11:59 PM CDT Hospital En[place] [facility] [facility] [address] [facility] [address] [place], [place] [address] SophiaDavid ward MD 701 [facility] [address]25 [place], [place] [address] Routine, Hbo - [phone] Discharge Disposition: Discharged to home or self [...] hesitate to call the Hyperbaric Department at [phone] during clinic hours or page plastics production machine operator staff with any updates, questions, or [...] POC Glucose 308(H) 70 - 100 mg/dL [facility] - POINT OF CARE Blood 01/06/2024 9:52 AM CDT us David Cortes MD LABORATORY Final Res ult [facility] - POINT OF CARE [address] [place] [address], documented in this encounter Visit Diagnoses Diagnosis Soft tissue infection- Primary Unspecified infectious and parasitic diseases Other acute osteomyelitis of left foot (CMS/HHS) documented in this encounter Additional Health Concerns Infection Onset Date Last Indicated Resolved Time 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
--- OUTSIDE RECORDS SUMMARY | 2024-03-20 08:59 | XMS_ITS | Encounter Summary ---
Author Organization [facility] Address [address] [facility] [place] [address] Phone Care Team Providers Care Performance Manager Name Role Phone Unavailable Primary Care Provider Unavailabl e Encounter Details Date Type Department Care Team (Latest Contact Info) Description 01/07/2024 10:06 AM CDT - 01/07/2024 11:59 PM CDT Hospital Encounter [facility] [place] [address] [place] [address] Maggy Horan MD [address] [place], [place] [address] Ldqzgjg, Lpd - [id number] Discharge Disposition: Discharged to home or self [...] hesitate to call the Hyperbaric Department at [phone] during clinic hours or page money counter staff with any updates, questions, or concerns. Cosigned by Maggy Horan MD at 01/07/2024 12:06 PM CDT Associated attestation - Maggy Horan MD - [...] CARE Blood 01/07/2024 12:2 7 PM CDT us Maggy Horan MD LABORATORY Final Result [facility] - POINT OF CARE [address] [place] [address], * (ABNORMAL) POC GLUCOSE (01/07/2024 10:20 AM CDT) POC Glucose 357(H) 70 - 100 mg/dL [facility] - POINT OF CARE Blood 01/07/2024 10:2 0 AM CDT us Maggy Horan MD LABORATORY Final Result [facility] - POINT OF CARE [address] [place] [address], documented in this encounter Visit Diagnoses Diagnosis Soft tissue infection- Primary Unspecified infectious and parasitic diseases Other acute osteomyelitis of left foot (CMS/HHS) documented in this encounter Additional Health Concerns Infection Onset Date Last Indicated Resolved Time 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
--- OUTSIDE RECORDS SUMMARY | 2024-03-20 08:59 | XMS_ITS | Encounter Summary ---
Author Organization [facility] Address [address] [place] [address] Phone Care Team Providers Care Psychologist Educational Name Role Phone Unavailable Primary Care Provider [...]
--- OUTSIDE RECORDS SUMMARY | 2024-03-20 08:59 | XMS_ITS | Encounter Summary ---
Author Organization [facility] Address [address] [place] [address] Phone Care Team Providers Care Chopped Strand Operator Name Role Phone Unavailable Primary Care [...]
--- OUTSIDE RECORDS SUMMARY | 2024-03-20 08:59 | XMS_ITS | Encounter Summary ---
Author Organization [facility] Address [address] [place] [address] Phone Care Team Providers Care Mac Operator Name Role Phone Unavailable Primary Care [...]
--- OUTSIDE RECORDS SUMMARY | 2024-03-20 08:59 | XMS_ITS | Encounter Summary ---
Author Organization [facility] Address [address] [facility] [place] [address] Phone Care Team Providers Care High Energy Forming Equipment Operator Name Role Phone Unavailable Primary Care Provider Unavailabl e Encounter Details Date Type Department Care Team (Latest Contact Info) Description 01/11/2024 10:01 AM CDT - 01/11/2024 11:59 PM CDT Hospital Encounter [facility] Hyperbaric [address] [place] [address] Nikolai Martinez MD [address] [facility] [place], [place] [address] Tdlgstj, Mvf - [id number] Discharge Disposition: Discharged to home or self [...] hesitate to call the Hyperbaric Department at [phone] during clinic hours or page orthodontist small business owner staff with any updates, questions, or concerns. Mayuri Hinojosa APRN, CNP, 01/11/2024 12:21 PM Continuous attending physician supervision was provided throughout the hyperbaric oxygen treatment. I have reviewed and agree with the treatment note created by Nurse Practitioner: Mayuri Hinojosa APRN, BOAT RENTAL CLERK. documented in this encounter Plan of Treatment Not on file documented as of this encounter Procedures Procedure Name Priority Date/Time Associated Diagnosis Comments POC GLUCOSE Routine 01/11/2024 10:00 AM CDT documented in this encounter Results * (ABNORMAL) POC GLUCOSE (01/11/2024 10:00 AM CDT) POC Glucose 362(H) 70 - 100 mg/dL [facility] - POINT OF CARE Blood 01/11/2024 10:0 0 AM CDT us Nikolai Martinez MD LABORATORY Final Result [facility] - POINT OF CARE [address] [place] [address], documented in this encounter Visit Diagnoses Diagnosis Soft tissue infection- Primary Unspecified infectious and parasitic diseases Other acute osteomyelitis of left foot (CMS/HHS) documented in this encounter Additional Health Concerns Infection Onset Date Last Indicated Resolved Time 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
--- OUTSIDE RECORDS SUMMARY | 2024-03-20 08:59 | XMS_ITS | Encounter Summary ---
Author Organization [facility] Address [address] [place] [address] Phone Care Team Providers Care Hogshead Packer Name Role Phone Unavailable Primary Care Provider Unavailabl e Encounter Details Date Type Department Care Team (Late st Contact Info) Description 01/18/2024 10:06 AM CDT - 01/18/2024 11:59 PM CDT Hospital Encounter [facility] [place]baric [address] [place], [place] [phone] SophiaDavid ward MD 701 [facility] [address] [place], [place] [address] Routine, Hbo - [id number] Discharge Disposition: Discharged to home or self [...] hesitate to call the Hyperbaric Department at [phone] during clinic hours or page quality control staff with any updates, questions, or concerns. Cosigned by David Cortes MD at 01/18/2024 1:30 PM CDT Associated attestation - David Cortes [...] Wed01/19/24 at 0313, For HBO Therapy Plan useIndications:Soft tissue infection,Other acute osteomyelitis of left foot (CMS/HHS) Given 01/18/2024 10:30 AM CDT 600 mg documented in this encounter Additional Health Concerns Infection Onset Date Last Indicated Resolved Time 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
--- OUTSIDE RECORDS SUMMARY | 2024-03-20 08:59 | XMS_ITS | Encounter Summary ---
Author Organization [facility] Address [address] [place] [address] Phone Care Team Providers Care Metal Cnc Operator Name Role Phone Unavailable Primary Care Provider Unavailabl e Encounter Details Date Type Department Care Team (Late st Contact Info) Description 01/12/2024 9:53 AM CDT - 01/12/2024 11:59 PM CDT Hospital Encounter [facility] Hyperbaric [address] [place], [place] [phone] SophiaDavid ward MD 701 [facility] [address] [place], [place] [address] Routine, Hbo - [id number] Discharge Disposition: Discharged to home or self [...] hesitate to call the Hyperbaric Department at [phone] during clinic hours or page control supervisor staff with any updates, questions, or [...] POC Glucose 414(H) 70 - 100 mg/dL [facility] - POINT OF CARE Blood 01/12/2024 10:0 2 AM CDT us David Cortes MD LABORATORY Final Res ult [facility] - POINT OF CARE [address] [place] [address], [place] documented in this encounter Visit Diagnoses Diagnosis Soft tissue infection- Primary Unspecified infectious and parasitic diseases Other acute osteomyelitis of left foot (CMS/HHS) documented in this encounter Additional Health Concerns Infection Onset Date Last Indicated Resolved Time 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
--- OUTSIDE RECORDS SUMMARY | 2024-03-20 09:00 | XMS_ITS | Encounter Summary ---
Author Organization [facility] Address [address] [facility] [address] Phone Care Team Providers Care Possum Trapper Name Role Phone Unavailable Primary Care Provider Unavailabl e Encounter Details Date Type Department Care Team (Latest Contact Info) Description 01/03/2024 9:33 AM CDT - 01/03/2024 11:59 PM CDT Hospital Encounter [facility] Hyperbaric [address] [facility] [address] [place] [address] Narcisa Sanford MD [address] [place], [place] [address] [facility], Xrp - [id number] Discharge Disposition: Discharged to home or self [...] hesitate to call the Hyperbaric Department at [phone] during clinic hours or page drafter directional survey staff with any updates, questions, or concerns. Cosigned by Narcisa Sanford MD at 01/03/2024 5:06 PM CDT Associated attestation - Narcisa Sanford MD - [...] POC Glucose 305(H) 70 - 100 mg/dL [facility] - POINT OF CARE Blood 01/03/2024 9:50 AM CDT us Narcisa Sanford MD LABORATORY Final Result [facility] - POINT OF CARE [address] [place] [address], [place] documented in this encounter Visit Diagnoses [...] PRN, Starting on 01/03/24 at 1137, Until Wed01/04/24 at 0313, For HBO Therapy Plan useIndications:Soft tissue infection,Other acute osteomyelitis of left foot (CMS/HHS) Given 01/03/2024 11:43 AM CDT 600 mg documented in this encounter Additional Health Concerns Infection Onset Date Last Indicated Resolved Time 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
--- OUTSIDE RECORDS SUMMARY | 2024-03-20 09:00 | XMS_ITS | Encounter Summary ---
Author Organization [facility] Address [address] [place] [address] Phone Care Team Providers Care Quality Nurse Name Role Phone Unavailable Primary Care [...]
--- OUTSIDE RECORDS SUMMARY | 2024-03-20 09:00 | XMS_ITS | Encounter Summary ---
Author Organization [facility] Address [address] [place] [address] Phone Care Team Providers Care Aeronautical Engineering Technologist Name Role Phone Unavailable Primary Care [...] ATTN&SUPVJ HYPRBARIC OXYGEN TX/SESSION Routine, Hbo - [id number] Referral ID Status Reason Start Date Expiration Date V isits Requested Visits Authorized [id number] Auth Not Needed 12/20/2023 03/09/2024 30 30 Encounter Details Date Type Department Care Team (Latest Contact Info) Description 12/23/2023 9:33 AM CDT - 12/23/2023 11:59 PM CDT Hospital Encounter [facility] Hyperbaric [address] [phone] Nikolai Martinez MD [address] [place], [place] [address] Routine, Hbo - [id number] Discharge Disposition: Discharged to home or self [...] hesitate to call the Hyperbaric Department at [phone] during clinic hours or page engineering production worker staff with any updates, questions, or concerns. Continuous attending physician supervision was provided throughout the hyperbaric oxygen treatment. I have reviewed and agree with the treatment note created by Nurse Practitioner: Mayuri Hinojosa APRN, MEDICAL ILLUSTRATOR. documented in this encounter Plan of Treatment Not on file documented as of this encounter Procedures Procedure Name Priority Date/Time Associated Diagnosis Comments POC GLUCOSE Routine 12/23/2023 10:27 AM CDT documented in this encounter Results * (ABNORMAL) POC GLUCOSE (12/23/2023 10:27 AM CDT) POC Glucose 315(H) 70 - 100 mg/dL [facility] - POINT OF CARE Blood 12/23/2023 10:2 7 AM CDT us Nikolai Martinez MD LABORATORY Final Result [facility] [place] - POINT OF CARE [address] [place] [address], documented in this encounter Visit Diagnoses Diagnosis Soft tissue infection- Primary Unspecified infectious and parasitic diseases Other acute osteomyelitis of left foot ([facility]) documented in this encounter Additional Health Concerns Infection Onset Date Last Indicated Resolved Time 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
--- OUTSIDE RECORDS SUMMARY | 2024-03-20 09:00 | XMS_ITS | Encounter Summary ---
Author Organization [facility] Address [address] [place] [address] Phone Care Team Providers Care Stacker Attendant Name Role Phone Unavailable Primary Care [...]
--- OUTSIDE RECORDS SUMMARY | 2024-03-20 09:00 | XMS_ITS | Encounter Summary ---
Author Organization [facility] Address [address] [place] [address] Phone Care Team Providers Care Manager Drug Safety Name Role Phone Unavailable Primary Care Provider Unavailabl e Encounter Details Date Type Department Care Team (Latest Contact Info) Description 01/04/2024 10:16 AM CDT - 01/04/2024 11:59 PM CDT Hospital Encounter [facility] [place]baric [address] [facility] [address] [place] [address] Masters, Douglas Osuna II, MD 701 [facility] 825 [place], [place] [address] Routine, Kqb - [id number] Discharge Disposition: Discharged to home or self [...] hesitate to call the Hyperbaric Department at [phone] during clinic hours or page credit professional staff with any updates, questions, or concerns. Cosigned by Douglas Morris II, MD at 01/04/2024 1:15 PM CDT Associated attestation - Douglas Morris [...] POC Glucose 340(H) 70 - 100 mg/dL [facility] - POINT OF CARE Blood 01/04/2024 10:0 3 AM CDT us Douglas Morris II, MD LABORATORY Final Re sult [facility] - POINT OF CARE [address] [place] [address], [place] documented in this encounter Visit Diagnoses Diagnosis Soft tissue infection- Primary Unspecified infectious and parasitic diseases Other acute osteomyelitis of left foot ([facility]) documented in this encounter Additional Health Concerns Infection Onset Date Last Indicated Resolved Time 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
--- OUTSIDE RECORDS SUMMARY | 2024-03-20 09:00 | XMS_ITS | Encounter Summary ---
Author Organization [facility] Address [address] [place] [address] Phone Care Team Providers Care Material Handling Technician Name Role Phone Unavailable Primary Care Provider Unavailabl e Encounter Details Date Type Department Care Team (Latest Contact Info) Description 12/31/2023 9:51 AM CDT - 12/31/2023 11:59 PM CDT Hospital Encounter [facility] Hyperbaric 701 [facility] 980 [place] [address] Masters, Douglas Osuna II, MD 701 [facility] [address] [place], [place] [address] Routine, Pik - [id number] Discharge Disposition: Discharged to home or self [...] hesitate to call the Hyperbaric Department at [phone] during clinic hours or page professional fighter staff with any updates, questions, or concerns. Cosigned by Douglas Morris II, MD at 12/31/2023 1:13 PM CDT Associated attestation - Douglsa Morris II, MD - 12/31/2023 1:13 PM CDT Continuous attending physician supervision was provided throughout the hyperbaric oxygen treatment.I have reviewed and agree with the treatment note created by the Hyperbaric Medicine Fellow: MD Shamir. Appropriate addendums were made as needed above. Douglsa Morris II, MD, 12/31/2023 1:13 PM documented in this encounter Plan of Treatment Not on file documented as of this encounter Procedures Procedure Name Priority Date/Time Associated Diagnosis Comments POC GLUCOSE Routine 12/31/2023 9:57 AM CDT documented in this encounter Results * (ABNORMAL) POC GLUCOSE (12/31/2023 9:57 AM CDT) POC Glucose 295(H) 70 - 100 mg/dL [facility] Blood 12/31/2023 9:57 AM CDT Douglas Morris II, MD LABORATORY Final Re sult [facility] [address] [place] [address], documented in this encounter Visit Diagnoses Diagnosis [...] 01/01/24 at 0318, For HBO Therapy Plan useIndications:Soft tissue infection,Other acute osteomyelitis of left foot (CMS/HHS) Given 12/31/2023 10:37 AM CDT 600 mg documented in this encounter Additional Health Concerns Infection Onset Date Last Indicated Resolved Time 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
--- OUTSIDE RECORDS SUMMARY | 2024-03-20 09:00 | XMS_ITS | Encounter Summary ---
Author Organization [facility] Address [address] [place] [address] Phone Care Team Providers Care Emergency Department Coordinator Name Role Phone Unavailable Primary Care Provider Unavailabl e Reason for Visit * Prior Authorization (Routine) - Auth Not Needed Specialty Diagnoses / Procedures Referred By Katherine tidwell Referred To Contact HYPERBARIC MEDICINE Diagnoses Patricia gangrene Other acute osteomyelitis, left ankle and foot Local infection of the skin and subcutaneous tissue, unspecified [facility] Ref: Bethany DPMorelia Procedures HYPERBARIC OXYGEN UNDER PRESSURE FULL BODY CHAMBER PER 30 MINUTE INTERVAL [place] PHYS/QHP ATTN&SUPVJ HYPRBARIC OXYGEN TX/SESSION Routine, Hbo - [id number] Referral ID Status Reason Start Date Expiration Date V isits Requested Visits Authorized [id number] Auth Not Needed 12/20/2023 03/09/2024 30 30 Encounter Details Date Type Department Care Team (Latest Contact Info) Description 12/22/2023 9:43 AM CDT - 12/22/2023 11:59 PM CDT Hospital Encounter [facility] Hyperbaric 701 [facility] 9[address] [place], [place] [address] Narcisa Sanford MD [address] [place], [place] [address] Routine, Hbo - [id number] Discharge Disposition: Discharged to home or self [...] hesitate to call the Hyperbaric Department at [phone] during clinic hours or page multifocal button generator staff with any updates, questions, or concerns. Continuous attending physician supervision was provided throughout the hyperbaric oxygen treatment.I have reviewed and agree with treatment note created by the Hyperbaric Medicine Nurse Practitioner, Mayuri Hinojosa APRN, PATRICIA. Narcisa Sanford MD, 12/22/2023 3:23 PM documented in this encounter Plan of Treatment Not on file documented as of this encounter Procedures Procedure Name Priority Date/Time Associated Diagnosis Comments POC GLUCOSE Routine 12/22/2023 9:48 AM CDT documented in this encounter Results * (ABNORMAL) POC GLUCOSE (12/22/2023 9:48 AM CDT) POC Glucose 318(H) 70 - 100 mg/dL [facility] - POINT OF CARE Blood 12/22/2023 9:48 AM CDT us Nikolai Martinez MD LABORATORY Final Result [facility] - POINT OF CARE [address] [place] [address], [place] documented in this encounter Visit Diagnoses Diagnosis Soft tissue infection- Primary Unspecified infectious and parasitic diseases Other acute osteomyelitis of left foot ([facility]) documented in this encounter Additional Health Concerns Infection Onset Date Last Indicated Resolved Time 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
--- OUTSIDE RECORDS SUMMARY | 2024-03-20 09:00 | XMS_ITS | Encounter Summary ---
Author Organization [facility] Address [address] [place] [address] Phone Care Team Providers Care Hair Assistant Name Role Phone Unavailable Primary Care Provider Unavailabl e Encounter Details Date Type Department Care Team (Late st Contact Info) Description 12/30/2023 9:49 AM CDT - 12/30/2023 11:59 PM CDT [place] [facility] [place] [address] [facility] [address] [place], [place] [address] SophiaDavid ward MD 701 [facility] [address] [place], [place] [address] Routine, Hbo - [id number] Discharge Disposition: Discharged to home or self [...] hesitate to call the Hyperbaric Department at [phone] during clinic hours or page salon assistant staff with any updates, questions, or concerns. Cosigned by David Cortes MD at 12/30/2023 2:47 PM CDT Associated attestation - David Cortes [...] POC Glucose 352(H) 70 - 100 mg/dL [facility] - POINT OF CARE Blood 12/30/2023 9:54 AM CDT us David Cortes MD LABORATORY Final Res ult [facility] - POINT OF CARE [address] [place] [address], documented in this encounter Visit Diagnoses Diagnosis [...] Wed12/31/23 at 0314, For HBO Therapy Plan useIndications:Soft tissue infection,Other acute osteomyelitis of left foot (CMS/HHS) Given 12/30/2023 11:45 AM CDT 600 mg documented in this encounter Additional Health Concerns Infection Onset Date Last Indicated Resolved Time 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
--- OUTSIDE RECORDS SUMMARY | 2024-03-20 09:00 | XMS_ITS | Encounter Summary ---
Author Organization [facility] Address [address] [place] [address] Phone Care Team Providers Care Administrative Personal Assistant Name Role Phone Unavailable Primary Care [...] FULL BODY CHAMBER PER 30 MINUTE INTERVAL AL PHYS/QHP ATTN&SUPVJ HYPRBARIC OXYGEN TX/SESSION Routine, Hbo - [id number] Referral ID Status Reason Start Date Expiration Date V isits Requested Visits Authorized [id number] Auth Not Needed 12/20/2023 03/09/2024 30 30 Encounter Details Date Type Department Care Team (Latest Contact Info) Description 12/20/2023 9:34 AM CDT - 12/20/2023 11:59 PM CDT [place] [facility] [place] 701 [facility] [address] [place], [place] [address] Shawn Vines MD 701 [facility] [address] [place], [place] [address] Routine, Hbo - [id number] Discharge Disposition: Discharged to home or self [...] hesitate to call the Hyperbaric Department at [phone] during clinic hours or page communication spec staff with any updates, questions, or concerns. Continuous attending physician supervision was provided throughout the hyperbaric oxygen treatment.I have reviewed and agree with treatment note created by Lor Hinojosa APRN, PATRICIA. Shawn Vines MD, 12/20/2023 12:49 PM documented in this encounter Plan of Treatment Not on file documented as of this encounter Procedures Procedure Name Priority Date/Time Associated Diagnosis Comments POC GLUCOSE Routine 12/20/2023 12:28 PM CDT POC GLUCOSE Routine 12/20/2023 10:06 AM CDT documented in this encounter Results * (ABNORMAL) POC GLUCOSE (12/20/2023 12:28 PM CDT) POC Glucose 265(H) 70 - 100 mg/dL [facility] POINT OF CARE Blood 12/20/2023 12:2 8 PM CDT Shawn Vines MD LABORATORY Fi nal Result Performing Organization Address [facility] Co de Phone Number [facility] [address] [place] [phone], * (ABNORMAL) POC GLUCOSE (12/20/2023 10:06 AM CDT) POC Glucose 284(H) 70 - 100 mg/dL [facility] POINT [facility] Blood 12/20/2023 10:0 6 AM CDT Shawn Vines MD LABORATORY Fi nal Result Performing Organization Address [facility] de Phone Number [facility] [address] [place] [phone], documented in this encounter Visit Diagnoses Diagnosis [...] Wed12/21/23 at 0312, For HBO Therapy Plan useIndications:Soft tissue infection,Other acute osteomyelitis of left foot (CMS/HHS) Given 12/20/2023 10:02 AM CDT 600 mg documented in this encounter Additional Health Concerns Infection Onset Date Last Indicated Resolved Time 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
--- OUTSIDE RECORDS SUMMARY | 2024-03-20 09:00 | XMS_ITS | Encounter Summary ---
Author Organization [facility] Address [address] [place] [address] Phone Care Team Providers Care Solar Project Engineer Name Role Phone Unavailable Primary Care [...]
--- OUTSIDE RECORDS SUMMARY | 2024-03-20 09:00 | XMS_ITS | Encounter Summary ---
Author Organization [facility] Address [address] [place] [address] Phone Care Team Providers Care Medical Office Assistant Instructor Name Role Phone Unavailable Primary Care [...]
--- OUTSIDE RECORDS SUMMARY | 2024-03-20 09:00 | XMS_ITS | Encounter Summary ---
Author Organization [facility] Address [address] [place] [address] Phone Care Team Providers Care Delivery Agent Name Role Phone Unavailable Primary Care Provider Unavailabl e Reason for Visit * Reason Comments Consult Encounter Details Date Type Department Care Team (Late st Contact Info) Description 12/24/2023 10:00 AM CDT Office Visit [facility] [address] [phone] Jose Castelan, PIANO TEACHER, REMOTE SENSING TECHNOLOGIST [address] [place] [address] 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); [...] area dry. Okay to discharge to Home JUDE if there is somebody who can do dressing changes daily. Appointment has been made for follow-up on 01/28/2024 documented in this encounter Progress Notes * Jose Castelan APRN, CNP - 12/24/2023 10:00 AM CDT Images from the original note were not included. [facility] PRACT[facility] PROVIDER SURGERY CLINIC VISIT NOTE - BODS DEVELOPER Stephanie Low : 1980 Sex: male Plan : Continue wet-to-dry dressing changes with Vashe to the groin incision. With the each dressing change; make sure the groin area is clean and dry. Utilize Interdry to keep abdominal fluids and groin dry Okay for patient to discharge Home HALFWAY if help is available to change the [...] No Jose Castelan APRN, CNP 12/24/2023 13:40 [facility] Department of Surgery Pager: via telemediq I have spent 30 minutes with this patient today in which greater than 50% of this time was spent incounseling/coordination of care regarding in patient care, review of imaging/labs, chart review andconsultant recommendations. Dictation Disclaimer: Some notes are completed with voice-recognition dictation software. Errors are generally corrected in real time. Please contact me via [employer] staff message if you note any errors [...]
--- OUTSIDE RECORDS SUMMARY | 2024-03-20 09:00 | XMS_ITS | Encounter Summary ---
Author Organization [facility] Address [address] [place] [address] Phone Care Team Providers Care Conductor Orchestra Name Role Phone Unavailable Primary Care Provider [...]
--- OUTSIDE RECORDS SUMMARY | 2024-03-20 09:00 | XMS_ITS | Encounter Summary ---
Author Organization [facility] Address [address] [place] [address] Phone Care Team Providers Care Green Marketing Specialist Name Role Phone Unavailable Primary Care Provider Unavailabl e Reason for Visit * Reason Comments Wound Encounter Details Date Type Department Care Team (Late st Contact Info) Description 12/27/2023 9:00 AM CDT Nurse Only [facility] [address] [address] Afshan Sims, DPMorelia [address] [phone] Discharge Disposition: Discharged to home or self [...] of this encounter Progress Notes * Xi Shaikh, SABINE - 12/27/2023 9:54 AM CDT 12/27/23 0951 [...] on Original Admission: Yes Location:Groin Site Assessment Granular;[place] Rain-Wound Assessment Intact Tunneling or undermining present? No Drainage Description Serosanguineous Drainage Amount Small Cleansed W/ Vashe Dressing ABD (Vashe moistened Kerlix) Dressing Changed Changed Dressing Status Clean;Intact Tolerated well. Starting HBO. Scheduled too late to start them today. Had transportation called by the time they scheduled the appointments. Xi Shaikh, SABINE, 12/27/2023 10:00 AM documented in this encounter Plan of Treatment Not on file documented as of this encounter Visit Diagnoses Not on filedocumented in this encounter Additional Health Concerns Infection Onset Date Last Indicated Resolved Time 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
--- OUTSIDE RECORDS SUMMARY | 2024-03-20 09:00 | XMS_ITS | Encounter Summary ---
Author Organization [facility] Address [address] [place] [address] Phone Care Team Providers Care Carpet Installer Helper Name Role Phone Unavailable Primary Care [...]
--- OUTSIDE RECORDS SUMMARY | 2024-03-20 09:00 | XMS_ITS | Encounter Summary ---
Author Organization [facility] Address [address] [place] [address] Phone Care Team Providers Care Gift Packer Name Role Phone Unavailable Primary Care [...]
--- OUTSIDE RECORDS SUMMARY | 2024-03-20 09:00 | XMS_ITS | Encounter Summary ---
Author Organization [facility] Address [address] [place] [address] Phone Care Team Providers Care Hairspring Fabrication Supervisor Name Role Phone Unavailable Primary Care Provider Unavailabl e Reason for Visit * Reason Onset Date Comments Care Coordination 12/28/2023 Called to disc us outpatient HBOT schedule Encounter Details Date Type Department Care Team (Late st Contact Info) Description 12/28/2023 Telephone [facility] Hyperbaric [address] [address] Dayanna Rodriguez RN [address] [place] [address] Care Coordination (Called to discuss outpatient HBOT [...] schedule was printedand faxed to Vannesa at [phone]. She reported that she may need x 2 days to get transport set up. documented in this encounter Plan of Treatment Not on file documented as of this encounter Visit Diagnoses Not on filedocumented in this encounter Additional Health Concerns Infection Onset Date Last Indicated Resolved Time 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
--- OUTSIDE RECORDS SUMMARY | 2024-03-20 09:00 | XMS_ITS | Encounter Summary ---
Author Organization [facility] Address [address] [place] [address] Phone Care Team Providers Care Guest Services Officer Name Role Phone Unavailable Primary Care [...]
--- OUTSIDE RECORDS SUMMARY | 2024-03-20 09:00 | XMS_ITS | Encounter Summary ---
Author Organization [facility] Address [address] [place] [address] Phone Care Team Providers Care Restaurant And Bar Manager Name Role Phone Unavailable Primary Care [...]
--- OUTSIDE RECORDS SUMMARY | 2024-03-20 09:00 | XMS_ITS | Encounter Summary ---
Author Organization [facility] Address [address] [facility] [place] [address] Phone Care Team Providers Care Manager Food Safety Name Role Phone Unavailable Primary Care Provider Unavailabl e Encounter Details Date Type Department Care Team (Latest Contact Info) Description 12/29/2023 9:38 AM CDT - 12/29/2023 11:59 PM CDT Hospital Encounter [facility] Hyperbaric [address] [place] [address] Nikolia Martinez MD [address] [facility] [place], [place] [phone] Qupeqml, Naq - [phone] Discharge Disposition: Discharged to home or self [...] hesitate to call the Hyperbaric Department at [phone] during clinic hours or page steward/stewardess second staff with any updates, questions, or concerns. Cosigned by Nikolai Martinez MD at 12/29/2023 4:39 PM CDT Associated attestation - Nikolai Martinez [...] POC Glucose 323(H) 70 - 100 mg/dL [facility] Blood 12/29/2023 10:0 7 AM CDT us Nikolai Martinez MD LABORATORY Final Result [facility] [address] [place] [address], [place] documented in this encounter Visit Diagnoses [...] > 38.6 C, For HBO Therapy Plan use.Indications:Soft tissue infection,Other acute osteomyelitis of left foot (CMS/HHS) Given 12/29/2023 11:31 AM CDT 650 mg documented in this encounter Additional Health Concerns Infection Onset Date Last Indicated Resolved Time 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
--- OUTSIDE RECORDS SUMMARY | 2024-03-20 09:00 | XMS_ITS | Encounter Summary ---
Author Organization [facility] Address [address] [place] [address] Phone Care Team Providers Care Physical Chemistry Teacher Name Role Phone Unavailable Primary Care Provider Unavailabl e Reason for Visit * Reason Comments Post Op Encounter Details Date Type Department Care Team (Late st Contact Info) Description 12/31/2023 1:00 PM CDT Office Visit [facility] [address] [address] Afshan Sims, DPMorelia [address] [phone] S/P foot surgery, right (Primary Dx) Discharge [...] follow up 3 weeks at the front desk specialist - Please schedule an appointment with orthotics at the front desk specialist for diabetic shoes and inserts - A [...] Progress Notes * Samina Singletary DPM - 12/31/2023 1:00 PM CDT Images [...] Schizophrenia History of TBI --Patient is own [facility] Clinic plan: -Discussed postoperative course and expectations [...] left until diabetic shoes and inserts arrive -SC paperwork completed and returned to patient Return [...]
--- OUTSIDE RECORDS SUMMARY | 2024-03-20 09:00 | XMS_ITS | Encounter Summary ---
Author Organization [facility] Address [address] [place] [address] Phone Care Team Providers Care Community Relations Advisor Name Role Phone Unavailable Primary Care [...]
--- OUTSIDE RECORDS SUMMARY | 2024-03-20 09:01 | XMS_ITS | Encounter Summary ---
Author Organization [facility] Address [address] [place] [address] Phone Care Team Providers Care Knifer Up Name Role Phone Unavailable Primary Care Provider Unavailabl e Reason for Visit * Reason Comments Follow-up Encounter Details Date Type Department Care Team (Late st Contact Info) Description 12/17/2023 1:45 PM CDT Office Visit [facility] [address] [address] Afshan Sims, DPMorelia [address] [phone] S/P foot surgery, right (Primary Dx) Discharge [...] is own [facility] Clinic plan: -Discussed postoperative course [...]
--- OUTSIDE RECORDS SUMMARY | 2024-03-20 09:01 | XMS_ITS | Encounter Summary ---
Author Organization [facility] Address [address] [place] [address] Phone Care Team Providers Care Medical Instrument Technician Name Role Phone Unavailable Primary [...] PM CDT Ordered by an unspecified provider. us Provider Unknown RAD ECHO Final Result documented in this encounter Visit Diagnoses Not on filedocumented in this encounter Additional Health Concerns Infection Onset Date Last Indicated Resolved Time 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
--- OUTSIDE RECORDS SUMMARY | 2024-03-20 09:01 | XMS_ITS | Encounter Summary ---
Author Organization [facility] Address [address] [place] [address] Phone Care Team Providers Care Personal Lines Sales Rep Name Role Phone Unavailable Primary Care [...] AM CDT Ordered by an unspecified provider. us Provider Unknown RAD ECHO Final Result documented in this encounter Visit Diagnoses Not on filedocumented in this encounter Additional Health Concerns Infection Onset Date Last Indicated Resolved Time 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
--- OUTSIDE RECORDS SUMMARY | 2024-03-20 09:01 | XMS_ITS | Encounter Summary ---
Author Organization [facility] Address [address] [place] [address] Phone Care Team Providers Care Content Checker Name Role Phone Unavailable Primary Care Provider [...]
--- OUTSIDE RECORDS SUMMARY | 2024-03-20 09:01 | XMS_ITS | Encounter Summary ---
Author Organization [facility] Address [address] [place] [address] Phone Care Team Providers Care Delinquent Tax Collection Assistant Name Role Phone Unavailable Primary Care [...]
--- OUTSIDE RECORDS SUMMARY | 2024-03-20 09:01 | XMS_ITS | Encounter Summary ---
Author Organization [facility] Address [address] [place] [address] Phone Care Team Providers Care Pan Devulcanizer Name Role Phone Unavailable Primary Care Provider Unavailabl e Reason for Visit * Reason Onset Date Comments Follow-up 12/14/2023 Encounter Details Date Type Department Care Team (Late st Contact Info) Description 12/14/2023 Telephone [facility] Medicine [address] [facility] R[address] [place], [place] [phone] Aretha Damon MD [address] [place], [place] [phone] Follow-up Social History Tobacco Use Types Packs/Day [...]
--- OUTSIDE RECORDS SUMMARY | 2024-03-20 09:01 | XMS_ITS | Encounter Summary ---
Author Organization [facility] Address [address] [place] [address] Phone Care Team Providers Care Geography Faculty Member Name Role Phone Unavailable Primary Care [...]
--- OUTSIDE RECORDS SUMMARY | 2024-03-20 09:01 | XMS_ITS | Encounter Summary ---
Author Organization [facility] Address [address] [place] [address] Phone Care Team Providers Care Business Systems Technician Name Role Phone Unavailable Primary Care [...]
--- OUTSIDE RECORDS SUMMARY | 2024-03-20 09:01 | XMS_ITS | Encounter Summary ---
Author Organization [facility] Address [address] [place] [address] Phone Care Team Providers Care Inbound Sales Manager Name Role Phone Unavailable Primary Care [...]
--- OUTSIDE RECORDS SUMMARY | 2024-03-20 09:01 | XMS_ITS | Encounter Summary ---
Author Organization [facility] Address [address] [place] [address] Phone Care Team Providers Care Retrimmer Name Role Phone Unavailable Primary Care Provider [...]
--- OUTSIDE RECORDS SUMMARY | 2024-03-20 09:01 | XMS_ITS | Encounter Summary ---
Author Organization [facility] Address [address] [place] [address] Phone Care Team Providers Care Manager Coding Name Role Phone Unavailable Primary Care Provider [...]
--- OUTSIDE RECORDS SUMMARY | 2024-03-20 09:01 | XMS_ITS | Encounter Summary ---
Author Organization [facility] Address [address] [place] [address] Phone Care Team Providers Care Matrix Bath Operator Name Role Phone Unavailable Primary Care [...]
--- OUTSIDE RECORDS SUMMARY | 2024-03-20 09:01 | XMS_ITS | Encounter Summary ---
Author Organization [facility] Address [address] [place] [address] Phone Care Team Providers Care Cardiac Exercise Physiologist Name Role Phone Unavailable Primary Care Provider [...]
--- OUTSIDE RECORDS SUMMARY | 2024-03-20 09:01 | XMS_ITS | Encounter Summary ---
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[facility]) Clint Barber MD [address] [address] Phone: tel: fax: Referral ID Status Reason Start Date Expiration Date V isits Requested Visits Authorized [id number] New Request 12/14/2023 12/14/2024 1 1 * Consult/Test/Treat (Routine) - New Request Specialty Diagnoses / Procedures Referred By Contac t Referred To Contact Diagnoses Soft tissue infection Igor Glover MD [address] [address] Phone: tel: fax: PATIENT CHOICE Referral ID Status Reason Start Date Expiration Date V isits Requested Visits Authorized [id number] New Request 12/12/2023 12/12/2024 1 1 * Consult/Test/Treat (Routine) - New Request Specialty Diagnoses / Procedures Referred By Katherine tidwell Referred To Contact Physical Therapy / PHYSICAL THERAPY Diagnoses Soft tissue infection Igor Glover MD [address] [place] [address] Phone: tel: fax: PATIENT CHOICE Referral ID Status Reason Start Date Expiration Date V isits Requested Visits Authorized [id number] New Request 12/12/2023 12/12/2024 1 1 Reason for Visit * Auth/Cert (Routine) Specialty Diagnoses / Procedures Referred By Katherine tidwell Referred To Contact SURGERY Diagnoses Other acute osteomyelitis of left foot ([facility]) Eusebio Vivar MD [address] [place] [address] Phone: tel: fax: OR P4 [address] [place] [address] Phone: tel: fax: Referral ID Status Reason Start Date Expiration Date Visits Re quested Visits Authorized [id number] 1 1 Encounter Details Date Type Department Care Team (Latest Contact Info) Description 12/07/2023 3:48 PM CDT - 12/14/2023 12:38 PM CDT Hospital Encounter [facility] Orthopaedic [address] [place] [address] G3.220 [place], [place] [id number] Eusebio Vivar MD [address] [place] [address] [id number] Mirta Urena MD [address] [place] [address] [id number] Suzy Shafer PATrevonC [address] [place] [address] [phone] Igor Glover MD [address] [place] [address] [phone] Clint Barber MD [address] [address] Other acute osteomyelitis of left foot ([facility]) Discharge Disposition: Discharged/transd to home (care [...] on discharge due to cost/transport issues at [facility]. HOSPITAL COURSE BY PROBLEM: Acute osteomyelitis of [...] 12/12 - discussed with PharmD. HTN: Continue PNEUMATIC JACK OPERATOR amlodipine. Hyperlipidemia: Continue PNEUMATIC JACK OPERATOR rosuvastatin. Tobacco use disorder: Continue NRT. Hx of TBI. Malnutrition Weight: (!) 139.9 kg (308 lb 6.8 oz) Wt Change from Previous: 0 Kg Wt Change from Admit: 0 Kg % Wt Change from Adm: 0 % Au Train Body Wt (IBW) Male (kg): 75.3 kg [...] Comments: Fax to Dr. Aretha Damon at [phone] PANEL HEPATIC FUNCTION Standing Status: Future Standing Exp. Date: 03/13/24 Order Comments: Fax to Dr. Aretha Damon at [phone] Scheduling Instructions: Hepatic Function Panel includes: Albumin, Alk Phos, ALT, AST, Direct Bilirubin, Total Bilirubin and Total Protein C-REACTIVE PROTEIN Standing Status: Future Standing Exp. Date: 03/13/24 Order Comments: Fax to Dr. Aretha Damon at [phone] CREATININE, SERUM Standing Status: Future Standing Exp. Date: 03/13/24 Order Comments: Fax to Dr. Aretha Damon at [phone] Referral to Physical Therapy Referral Priority: Routine [...] in comments! Resume previous standing orders per longterm policy Order Comments: Resume previous standing orders per longterm policy Scheduling Instructions: Please specify in comments! [...] equipment/supplies recommended: None Final discharge destination: Subacute longterm with rehab care R: The patient and [...] hesitate to call the Hyperbaric Department at [phone] during clinic hours or page iron guardrail installer staff with any updates, questions, or concerns. Cosigned by Douglas Morris II, MD at 12/14/2023 3:50 PM CDT Associated attestation - Douglas Morris [...] recent) Eusebio Perez PharmD 12/13/2023 21:07 Pager: (Telmediq) * Emily Hannah RN - 12/13/2023 1:07 PM CDTSummary: Discharge planning Clinical Coordinator Update Patient is medically ready for discharge back to [facility]- since 12/11. Spoke to Tabatha at [facility] today ([phone]) who reported that the patient was not [...] () of patient departure: 12/13/2023 @1530 Destination: [facility] [address] [place], [place] Type of ride: wheelchair Transportation vendor of ride: [facility] [phone] * If this ride needs to be [...] Clinical Coordinators will be informed via a TelPhagenesisq page. PCS form was completed in Progress [...] infection Attending provider: Igor Glover MD Insurance: [employer] Secondary insurance: [place] [employer] Height: Height: 180.3 cm (5' [...] hesitate to call the Hyperbaric Department at [phone] during clinic hours or page iron guardrail installer staff with any updates, questions, or concerns. Cosigned by Douglas Morris II, MD at 12/13/2023 2:40 PM CDT Associated attestation - Douglas Morris [...] 12/12 - discussed with PharmD. HTN: Continue PNEUMATIC JACK OPERATOR amlodipine. Hyperlipidemia: Continue PNEUMATIC JACK OPERATOR rosuvastatin. Tobacco use disorder: Continue NRT. Hx of TBI. FEN: Regular consistent carb diet. Code status: Full code. VTE prophylaxis: VTE prophylaxis with lovenox to start 12/10. Lines: No central line. No mujica. Discharge planning: Discharg to [facility] in [place] when they're able to accept him back.Possibly [...] Patient's Discharge Goal: back to [facility] Family's Discharge Goal: n/a Discharge Destination [...] Services Address Phone Fax Patient Preferred [facility] [place] [facility] Pending - No Request Sent N/A [id number] [facility] [phone] -- Narcisa Tobar LGSW, 12/12/2023 9:50 AM * Aretha Damon MD - 12/12/2023 8:53 AM CDT ID PROGRESS NOTE Stephanie Low 1980 male [id number] ASSESSMENT: MRSA left foot osteomyelitis S/p I&D [...] 12/12 - discussed with PharmD. HTN: Continue PNEUMATIC JACK OPERATOR amlodipine. Hyperlipidemia: Continue PNEUMATIC JACK OPERATOR rosuvastatin. Tobacco use disorder: Continue NRT. Hx of TBI. FEN: Regular consistent carb diet. Code status: Full code. VTE prophylaxis: VTE prophylaxis with lovenox to start 12/10. Lines: No central line. No mujica. Discharge planning: Discharg to [facility] in [place] when they're able to accept him back.Possibly [...] Glover MD, 12/11/2023 7:34 PM Page via TelemedIQ * Eusebio Perez, PharmD - 12/11/2023 3:38 [...] recent) Eusebio Perez PharmD 12/11/2023 19:22 Pager: (GoingOn) * Lizbeth Cavazos LICSW - 12/11/2023 2:41 PM CDT Weekend Inpatient Social Work Note Summary: Weekend SW paged by bedside RN to help facilitate coordination back to TCU today. SW called Cruz Aguiar and left a voicemail. Many barriers are at play for a weekend return - patient hasIV antibiotics, he is recommended to receive 20 HBO sessions (1st today), and has [facility] Medicare Advantage (which requires prior authorization). SW advised this likely cannot be resolved during the weekend due to the barriers listed above. Follow up needed: GARY will try to problem solve if [facility] Aguiar calls back, if not weekday team to follow up on plan for discharge. RAJ Cadena, PLACIDO Inpatient Pillowcase Maker - Casual (weekends only) Available via Exploredge Lizbeth Cavazos LICSW, 12/11/2023 2:41 PM Addendum [...] hesitate to call the Hyperbaric Department at [phone] during clinic hours or page iron guardrail installer staff with any updates, questions, or concerns. Cosigned by Nikolai Martinez MD at 12/11/2023 10:05 AM CDT Associated attestation - Nikolai Martinez MD - 12/11/2023 10:05 AM CDT Continuous attending physician supervision was provided throughout the hyperbaric oxygen treatment. I have reviewed and agree with the treatment note created by Fellow: Kit Mcconnell MD. * Suzy Patino DPM - 12/11/2023 7:10 AM CDT Images from the original note were not included. Podiatric Surgery Inpatient Progress Note - PGY-2 Stephanie Keyzena : 1980 Sex: male Patient Summary: 43 [...] continue to follow while admitted. Please page iron guardrail installer resident with questions. Patient was discussed with iron guardrail installer staff Interval history: Patient seen and evaluated [...] tissue cultures - NWB to E - Podiatry following - Consult ID - [...] 12/12 - discussed with PharmD. HTN: Continue PNEUMATIC JACK OPERATOR amlodipine. Hyperlipidemia: Continue PNEUMATIC JACK OPERATOR rosuvastatin. Tobacco use disorder: Continue NRT. Hx of TBI. FEN: Regular consistent carb diet. Code status: Full code. VTE prophylaxis: VTE prophylaxis with lovenox to start 12/10. Lines: No central line. No mujica. Discharge planning: Discharged to [facility] on 11/24 after admission for Demar's [...] Note: 12/10/23 1156 Rapid Rounds Attendance Physician;Charge nurse;legal manager;care worker;Bedside nurse Expected Discharge Disposition SNF Today [...] to discharge. Denise Esteves Inpatient Clinical Coordinator [facility] Office: [phone] * Suzy Patino, DPM - 12/10/2023 8:42 AM CDT Images from the original note were not included. Podiatric Surgery Inpatient Progress Note - PGY-3 Stephanie Keyzean : 1980 Sex: male Patient Summary: 43 [...] of TBI --Patient is own [facility] RECOMMENDATIONS: 1. Dressing: Dressed in OR [...] continue to follow while admitted. Please page iron guardrail installer resident with questions. Patient was discussed with iron guardrail installer staff Interval history: Patient seen resting comfortably [...] 12/12 - discussed with PharmD. HTN: Continue PNEUMATIC JACK OPERATOR amlodipine. Hyperlipidemia: Continue PNEUMATIC JACK OPERATOR rosuvastatin. Tobacco use disorder: Continue NRT. Hx of TBI. FEN: Regular consistent carb diet. Code status: Full code. VTE prophylaxis: VTE prophylaxis with hep to start 12/08. Lines: No central line. No mujica. 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 [...] 12/09/2023 Expected DC Date: 12/10/2023 Social Information Toy Department Manager Used: None needed Decision Maker at Admission: Self Living Situation: penitentiary (see comment) Patient Identified Support System: sister, significant other Services Receiving: Waivered services (see comment) Complex Medical Needs: Other (see comment) (wound care) Transportation Used for Discharge: stretcher Safety Concerns: None Behavioral Health Concerns: None Patient Family Goals Patient's Discharge Goal: back to [facility] Family's Discharge Goal: n/a Plan/Interventions Expected Discharge Disposition: Snf Facility Patient Information Verification Verified demographic information, including SSN, Next of Kin, and Guardianship: Yes Verified PCP: Yes If post-acute placement is needed, have vaccination status needs been addressed?: Not applicable Risks for Readmission: None Summary of pertinent information: Patient admitted from [facility] with concern for a left great to osteomyelitis that was resected 12/07. 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 Have a call out to [facility] to confirm bed hold ([phone]). Spoke to staff at his [facility] ([place] [phone]) to also update and confirm that he can return there when ultimately. Patient currently has started on HBO, this may be problematic with returning to [facility]. Emily Hannah RN, 12/09/2023 1:49 PM [...] of TBI --Patient is own [facility] RECOMMENDATIONS: 1. Dressing: Dressed with Vashe [...] above procedure. Tomorrow 12/10/2023. Please medically optimize maken.p.o. at midnight. Plan will be for repeat irrigation and debridement with primary closure if wound environment is clean of infection and devitalized tissue. 6. Imaging: TCO2 and Dulce obtained. See below for details. No further imaging at this time. 7. Labs: Continue daily labs for inflammatory markers 8. Follow-up: Will continue to follow while inpatient Please page iron guardrail installer resident with questions. Patient was discussed with iron guardrail installer staff Interval history: Patient seen and evaluated [...] Surgery Inpatient Progress Note - PGY-3 Stephanie Keyzena : 1980 Sex: male Patient Summary: 43 [...] of TBI --Patient is own [facility] RECOMMENDATIONS: 1. Dressing: Dressed in operating [...] continue to follow while inpatient Please page iron guardrail installer resident with questions. Patient was seen with iron guardrail installer staff, Dr. Palomo Interval history: Patient is [...] 1446 for Other acute osteomyelitis of leftfoot ([facility]) . Patient: alert, oriented to person, place [...] informed of Patient Valuables and Belongings Policy (#[id number]): Policy reviewed - patient/family/designee has indicated that [...] 12/12 - discussed with PharmD. HTN: Continue PNEUMATIC JACK OPERATOR amlodipine. Hyperlipidemia: Continue PNEUMATIC JACK OPERATOR rosuvastatin. Tobacco use disorder: Continue NRT. Hx of TBI. FEN: Regular consistent carb diet. Code status: Full code. VTE prophylaxis: VTE prophylaxis with hep to start 12/08. Lines: No central line. No mujica. 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 [...] -F/up cultures currently in process -NPO at [facility], holding VTE ppx -AM BMP, CBC, CRP, ESR Chronic / Stable / Resolved / Ruled Out #T2DM: A1c 6.8% 07/2023. Reduce PNEUMATIC JACK OPERATOR lantus to 15 U while NPO, Novolog 1U/CHO + LDSSI. Rechecking A1c. #HTN: PNEUMATIC JACK OPERATOR amlodipine 10 mg daily #HLD: PNEUMATIC JACK OPERATOR statin #Paranoid schizophrenia: PNEUMATIC JACK OPERATOR prazosin #HILL: PNEUMATIC JACK OPERATOR escitalopram 20 mg daily #Tobacco use [...] including pre-visit review of separately obtained history, [id number] interaction performing medically appropriate physical exam, patientcounseling/education, [...] surgery and sign off. 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 Discharge [...] wound healing. Message sent to primary team. [facility] Nursing follow up: Appreciate the opportunity to consult on this patient, Wound Ostomy Continence Services will sign off at this time. Please place additional 'Wound Consult' if wanting further assessment for this patient. Staff to continue to follow skin injury bundle. Escalate concerns to WOCN through additional consult or to the provider when barriers are identified. WOCN available Wednesday through Wednesday on Catchoom or [phone] [facility] Nursing attempts to see patients in person when possible, but will at times complete a chart/media review in order to recommend wound treatment in a timely manner. Please reconsult WOC if wound condition changes or the current treatment is thought to be no longerappropriate. Harry Randhawa CWON, 12/13/2023 8:53 AM * Eusebio Perez, PharmJaneen - 12/12/2023 10:53 AM CDTAssociated Order(s): DISCHARGE [...] on service at PharmD General Weekend Days ([employer]) or [phone]. If no response within needed timeframe, please contact central pharmacy via phone at [phone]. Planned discharge medications are: Medication List Medications [...] NEW CONSULT NOTE Stephanie Low 1980 male [id number] REASON FOR CONSULT: I was asked to [...] file. SOCIAL HISTORY Pt was admitted from [facility]rehab. Prior to recent hospitalization pt lived at halfway with elevator. Was independent with mobility SUBJECTIVE [...] bearing restrictions, otherwise bed to chair only PNEUMATIC JACK OPERATOR Appropriate: No (more OR) Participated in goal setting and treatment planning: Patient Agrees with goals and treatment plan: Question patient's ability to understand. Gracia Arredondo, PT 12/10/2023 Pager: TelPhagenesisleena PT Department * David Cortes MD - 12/09/2023 9:58 AM CDT Images from the original note were not included. [facility] HYPERBARIC MEDICINE CONSULTATION Referring clinician: Che Palomo [...] old poorly controlled DMII male referred to [facility] Hyperbaric medical team for consultation regarding concern [...] not hesitate to call the department at [phone] during clinic hours (M-F [phone]) or page the iron guardrail installer HYPERBARIC staff with any questions or concerns. [...] allowing us to participate in Stephanie Low [facility]. [place] [facility]: [phone]. David Cortes MD * Angela Cardenas CWOCN - 12/08/2023 3:00 PM CDTAssociated Order(s): CONSULT TO WOUND NURSE Images from the original note were not included. [facility] Nursing consulted by nursing for perineal wounds. 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 Discharge [...] wound healing. Message sent to primary team. [facility] Nursing follow up: later this week after surgery sees Staff to continue to follow skin injury bundle. Escalate concerns to WOCN through additional consult or to the provider when barriers are identified. WOCN available Wednesday through Wednesday on Catchoom or [phone] [facility] Nursing attempts to see patients in [...] of TBI --Patient is own [facility] RECOMMENDATIONS: 1. Dressing: Daily dressing changes [...] continue to follow while inpatient Please page iron guardrail installer resident with questions. Patient was seen with iron guardrail installer staff, Dr. Palomo CHIEF COMPLAINT: Left foot [...] OR Date: 12/10/2023 Surgeon: Suzy Patino DPM Lpta(s): Samina Singletary DPM PGY3 Pre-Op Diagnosis: Packed [...] 1980 Sex: male Surgeon: Che Palomo DPM Lpta(s): Niraj Lewis DPM PGY-3 Jf Sky, MS-4 [...] throughout the wound bed until 3 L was used. Wound bed was evaluated again and remaining [...] 2023 2242 Started nicotine gum PRN Started PNEUMATIC JACK OPERATOR glargine and lispro The patient remained in the emergency department through the end of my shift. Their care was signedout [id number] with the oncoming provider. Dx, DDx, Assessment and Plan was discussed with Attending Emergency Medicine Physician. Final Clinical Impression 1. Other acute osteomyelitis of left foot ([facility]) Disposition and Plan Signed out to [...] in real time. Please contact me via [employer] staff message if you note any [...] C-Reactive Protein(!): 82 1814 Sed Rate(!): 120 2048 Paged MOD for sign out CHART CODING Problems Addressed 1 undiagnosed new problem with uncertain prognosis Data Considered Tests ordered, Independent interpretation of studies, and External notes reviewed and summarized Risk of Patient Management Prescription drug management, Decision regarding hospitalization, and Decision regarding surgery or procedure CLINICAL IMPRESSION 1. Other acute osteomyelitis of left foot ([facility]) DISPOSITION & PLAN Patient remained in [...] Toe Head to Toe Assessment Shift Summary [id number] Alert and oriented x3, unsure of the [...] Physical Therapy Inpatient Discharge Summary Stephanie Low [id number] Diagnosis Patient Active Problem List Diagnosis Fourniers [...] Therapist: Gracia Arredondo, PT Date: 12/14/2023 Pager: GoingOn PT Department * Nursing Assessment - Kate Sarmiento RN - 12/14/2023 6:45 AM CDT Nursing Assessment Head to Toe Head to Toe Assessment Shift Summary Shift Summary [id number] Pt alert oriented and able to make [...] Toe Head to Toe Assessment Shift Summary [id number] Daily dressing change done per order, reported [...] Defined Limits * Nursing Assessment - Natasha Vivar, RN - 12/13/2023 11:53 AM CDT Nursing Assessment Head to Toe Head to Toe Assessment Shift Summary [id number] Alert and oriented x 4, able to use call light to report needs, vs WNL, on Ra, reported 7/10 tenderness, aching pain to LLE, 10 mg oxycodone given with report of partial pain relief, LLE casted and splinted, aced wrap, HBO earlier this shift, LLE dressing c/d/intact, cms intact, partial right foot amputation with dressing intact, blood glucose checks, insulin given per jul/ meal, ate 100% of hisbreakfast and lunch, [...] Toe Head to Toe Assessment Shift Summary [id number] Patient is alert and oriented x 4,RA.Vitals [...] amputation RLE - amputation Comments: R amputation PNEUMATIC JACK OPERATOR Integumentary Assessment Within Defined Limits except for: Skin Assessment Integrity - see Avatar LDA documentation Patient Lines/Drains/Airways Status Active LDAs Name Placement date Placement time Site Days Peripheral IV 12/08/23 20 gauge;1 3/4 in length Anterior;Left Forearm 12/08/234 -- 3 Peripheral IV 12/10/23 20 gauge;1 [...] Toe Head to Toe Assessment Shift Summary [id number] Patient is alert and oriented x 4,RA.Vitals [...] large (12/10/23 0203) Stool Color: brown (12/10/23 020) Stool Consistency: loose (12/10/23 020) Genitourinary Within [...] large (12/10/23 0203) Stool Color: brown (12/10/23 020) Stool Consistency: [...] 12/10/2023 6:30 PM PGY-1 Green Surgery Pager: [phone] * Nursing Assessment - May Torres RN [...] large (12/10/23 0203) Stool Color: brown (12/10/23 020) Stool Consistency: [...] Toe Head to Toe Assessment Shift Summary [id number] Alert and oriented x3, unsure of the [...] Head to Toe Assessment Shift Summary Night [id number] PT is AO x4. Able to make [...] Nursing Assessment - Aura Richard, RN - 12/08/2023 9:41 PM CDT Nursing [...] Dennis RN - 12/08/2023 2:28 PM CDTSummary: GLOVE EXAMINERtubing oiler PACU to IP Nursing Handoff Note S [...] Comments: RN: Cheryl Dennis RN Extension #: [phone] * Op Note Immediate - Niraj Lewis [...] 1. Other acute osteomyelitis of left foot ([facility]) Eusebio Vivar MD, 12/08/2023 12:16 AM [...] CDT Other acute osteomyelitis of left foot ([facility]) PC CULTURE,BACTERIAL,D EFINITIVE,AEROBIC ANY SOURCE Routine 12/08/2023 7:51 AM CDT PC CULTURE,BACTERIAL,D EFINITIVE,AEROBIC ANY SOURCE Routine 12/08/2023 7:51 AM CDT Other acute osteomyelitis of left foot ([facility]) PC CULTURE FUNGI ISOLATION W-WO PRESUMPTIVE ID SKIN OTH Routine 12/08/2023 7:51 AM CDT PC CULTURE FUNGI ISOLATION W-WO PRESUMPTIVE ID SKIN OTH Routine 12/08/2023 7:51 AM CDT Other acute osteomyelitis of left foot ([facility]) PC CULTURE SPECIMEN, ANAEROBIC Routine 12/08/2023 7:51 AM CDT PC CULTURE SPECIMEN, ANAEROBIC Routine 12/08/2023 7:51 AM CDT Other acute osteomyelitis of left foot ([facility]) POC GLUCOSE Routine 12/08/2023 7:22 AM CDT AMPUTATION FOOT Urgent (< 48 hrs) 12/08/2023 7:12 AM CDT Other acute osteomyelitis of left foot ([facility]) TC LAB BLOOD DRAW BY VENIPUNCTURE Routine [...] POC Glucose 255(H) 70 - 100 mg/dL [facility] Blood 12/14/2023 11:2 9 AM CDT Eusebio Vivar MD LABORATORY Final Result Performing Organization Address [facility] Co de Phone Number [facility] [address] [place] [address], [place] * (ABNORMAL) POC GLUCOSE (12/14/2023 6:32 AM CDT) POC Glucose 186(H) 70 - 100 mg/dL [facility] Blood 12/14/2023 6:32 AM CDT Eusebio Vivar MD LABORATORY Final Result Performing Organization Address City/[facility] Co de Phone Number [facility] [address] [place] [address], [place] * (ABNORMAL) POC GLUCOSE (12/13/2023 9:05 PM CDT) POC Glucose 175(H) 70 - 100 mg/dL [facility] Blood 12/13/2023 9:05 PM CDT Eusebio Vivar MD LABORATORY Final Result Performing Organization Address [facility] Co de Phone Number [facility] [address] [place] [phone], [place] * VANCOMYCIN LEVEL (12/13/2023 5:24 PM CDT) Vancomycin 17.0 mcg/mL [facility] Comment:Expected Range (Trou gh): 10-20 mcg/ml Blood 12/13/2023 5:24 PM CDT 12/13/2023 5:46 PM CDT Narrative [facility] - 12/13/2023 6:34 PM CDT Please ensure trough level drawn prior to next vancomycin dose. Thank you Peak or trough:->Trough us Eusebio Perez PharmD LABORATORY Final Resu lt Performing Organization Address [facility] Co de Phone Number [facility] [address] [place] [phone] * (ABNORMAL) POC GLUCOSE (12/13/2023 4:00 PM CDT) POC Glucose 153(H) 70 - 100 mg/dL [facility] Blood 12/13/2023 4:00 PM CDT us Eusebio Vivar MD LABORATORY Final Result Performing Organization Address [facility] de Phone Number [facility] [address] [place] [address], [place] * (ABNORMAL) POC GLUCOSE (12/13/2023 11:47 AM CDT) POC Glucose 271(H) 70 - 100 mg/dL [facility] Blood 12/13/2023 11:4 7 AM CDT us Eusebio Vivar MD LABORATORY Final Result Performing Organization Address [facility] Co de Phone Number [facility] [address] [place] [address], [place] * (ABNORMAL) POC GLUCOSE (12/13/2023 6:35 AM CDT) POC Glucose 204(H) 70 - 100 mg/dL [facility] Blood 12/13/2023 6:35 AM CDT us Eusebio Vivar MD LABORATORY Final Result [facility] [address] [place] [address], [place] * (ABNORMAL) POC GLUCOSE (12/12/2023 8:54 PM CDT) POC Glucose 170(H) 70 - 100 mg/dL [facility] Blood 12/12/2023 8:54 PM CDT us Eusebio Vivar MD LABORATORY Final Result Performing Organization Address [facility] Co de Phone Number [facility] [address] [place] [address], [place] * (ABNORMAL) POC GLUCOSE (12/12/2023 4:10 PM CDT) POC Glucose 252(H) 70 - 100 mg/dL [facility] Blood 12/12/2023 4:10 PM CDT us Eusebio Vivar MD LABORATORY Final Result Performing Organization Address City/[facility]/ZIP Co de Phone Number [facility] [address] [place] [address], [place] * (ABNORMAL) POC GLUCOSE (12/12/2023 11:07 AM CDT) POC Glucose 200(H) 70 - 100 mg/dL [facility] Blood 12/12/2023 11:0 7 AM CDT us Eusebio Vivar MD LABORATORY Final Result Performing Organization Address City/[facility]/ZIP Co de Phone Number [facility] [address] [place] [address], [place] * (ABNORMAL) POC GLUCOSE (12/12/2023 6:42 AM CDT) POC Glucose 185(H) 70 - 100 mg/dL [facility] Blood 12/12/2023 6:42 AM CDT Eusebio Vivar MD LABORATORY Final Result Performing Organization Address [facility] Co de Phone Number [facility] [address] [place] [address], [place] * (ABNORMAL) POC GLUCOSE (12/11/2023 9:10 PM CDT) POC Glucose 226(H) 70 - 100 mg/dL [facility] Blood 12/11/2023 9:10 PM CDT us Eusebio Vivar MD LABORATORY Final Result Performing Organization Address [facility] de Phone Number [facility] [address] [place] [address], [place] * VANCOMYCIN LEVEL (12/11/2023 5:28 PM CDT) Vancomycin 19.6 mcg/mL [facility] Comment:Expected Range (Trou gh): 10-20 mcg/ml Blood 12/11/2023 5:28 PM CDT 12/11/2023 5:37 PM CDT Narrative [facility] - 12/11/2023 6:46 PM CDT Peak or trough:->Trough Igor Glover MD LABORATORY Final Result Performing Organization Address [facility] Co de Phone Number [facility] [address] [address] * (ABNORMAL) POC GLUCOSE (12/11/2023 4:13 PM CDT) POC Glucose 173(H) 70 - 100 mg/dL [facility] Blood 12/11/2023 4:13 PM CDT us Eusebio Vivar MD LABORATORY Final Result [facility] [address] [place] [address], [place] * (ABNORMAL) POC GLUCOSE (12/11/2023 11:43 AM CDT) POC Glucose 283(H) 70 - 100 mg/dL [facility] Blood 12/11/2023 11:4 3 AM CDT us Eusebio Vivar MD LABORATORY Final Result Performing Organization Address [facility]/ZIP Co de Phone Number [facility] [address] [place] [address], [place] * (ABNORMAL) POC GLUCOSE (12/11/2023 10:28 AM CDT) POC Glucose 198(H) 70 - 100 mg/dL [facility] Blood 12/11/2023 10:2 8 AM CDT us Eusebio Vivar MD LABORATORY Final Result Performing Organization Address [facility] Co de Phone Number [facility] [address] [place] [address], [place] * (ABNORMAL) POC GLUCOSE (12/11/2023 6:41 AM CDT) POC Glucose 173(H) 70 - 100 mg/dL [facility] Blood 12/11/2023 6:41 AM CDT us Eusebio Vivar MD LABORATORY Final Result Performing Organization Address City/[facility]/ZIP Co de Phone Number [facility] [address] [place] [address], [place] * (ABNORMAL) CBC WITH PLTS/AUTO DIFF (12/11/2023 5:50 AM CDT) WBC 8.72 4.00 - 10.00 k/cmm [facility] RBC 3.82(L) 4.60 - 6.00 m/cmm [facility] Hgb 10.6(L) 13.1 - 17.5 g/dL [facility] Hematocrit 32.4(L) 40.0 - 51.0 % [facility] MCV 84.8 80.0 - 100.0 fL [facility] MCH 27.7 25.0 - 32.0 pg [facility] MCHC 32.7 31.0 - 36.0 g/dL [facility] RDW 13.5 11.5 - 14.5 % [facility] Plt 400 150 - 400 k/cmm [facility] MPV 9.3 6.5 - 12.5 fL [facility] Automated Abs Neutrophil 4.22 1.70 - 6.50 k/cmm [facility] Comment:Preliminary ANC, Fin al Result to Follow Abs Immature Granulocyte 0.09 0.00 - 0.09 k/cmm [facility] Comment:The Immature Granulo cyte Absolute count contains metamyelocytes and myelocytes. Abs Neutrophil 4.22 1.70 - 6.50 k/cmm [facility] Abs Lymphocyte 2.59 0.80 - 4.00 k/cmm [facility] Abs Monocyte 1.00 0.20 - 1.00 k/cmm [facility] Abs Eosinophil 0.79(H) 0.00 - 0.60 k/cmm [facility] Abs Basophil 0.03 0.00 - 0.20 k/cmm [facility] Blood 12/11/2023 5:50 AM CDT 12/11/2023 6:26 AM CDT us Igor Glover MD LABORATORY Edited Result - Final [facility] [address] [place] [phone] * (ABNORMAL) PANEL BASIC METABOLIC (BMP) (12/11/2023 5:50 AM CDT) CO2 25 22 - 30 mmol/L [facility] Glucose 178(H) 70 - 100 mg/dL [facility] BUN 9 6 - 20 mg/dL [facility] Creatinine 0.92 0.70 - 1.25 mg/dL [facility] Calcium 9.0 8.6 - 10.0 mg/dL [facility] Sodium 136 135 - 148 mmol/L [facility] Potassium 4.1 3.5 - 5.3 mmol/L [facility] Chloride 100 92 - 108 mmol/L [facility] eGFR (2020 CKD-EPI) 105 >=60 ml/min/1.7 3m2 [facility] Comment: The estimated glomerular filtration rate (eGFR) was calculated using the CKD-EPI 2020 creatinine equation, which does not include race as a factor. This equation is validated in individuals 18 years of age and older, and eGFR is normalized to a body surface area of 1.73m^2. AnGap 11 8 - 16 mmol/L [facility] Blood 12/11/2023 5:50 AM CDT 12/11/2023 6:25 AM CDT Igor Glover MD LABORATORY Final Result [facility] [place] [address] * (ABNORMAL) POC GLUCOSE (12/10/2023 9:03 PM CDT) POC Glucose 206(H) 70 - 100 mg/dL [facility] Blood 12/10/2023 9:03 PM CDT us Eusebio Vivar MD LABORATORY Final Result [facility] [address] [place] [address], * (ABNORMAL) POC GLUCOSE (12/10/2023 4:16 PM CDT) POC Glucose 341(H) 70 - 100 mg/dL [facility] Blood 12/10/2023 4:16 PM CDT Eusebio Vivar MD LABORATORY Final Result [facility] [address] [address], [place] * XR CHEST 2 VIEWS PA [...] No focal consolidation. Reading Radiologist: Jose Robledo us Igor Glover MD RAD XRAY Final Result * XR FOOT LEFT 3 V AP/OBL/LAT* [...] mid metatarsal bone. Reading Radiologist: Jose Robledo us Igor Glover MD RAD XRAY Final Result * (ABNORMAL) POC GLUCOSE (12/10/2023 12:09 PM CDT) POC Glucose 194(H) 70 - 100 mg/dL [facility] Blood 12/10/2023 12:0 9 PM CDT us Eusebio Vivar MD LABORATORY Final Result [facility] [address] [place] [address], * SURGICAL PATHOLOGY (12/10/2023 11:07 AM CDT) SURG PATH FINAL ?Surgical Pathology Report Collection Date: ?12/10/2023 11:07 CDT ? Ordering Physician: ? SUZY PATINO Received Date: ?12/10/2023 12:07 CDT ? Accession Number: ? [id number] ? Surgical Pathology Final Report Specimen Type: [...] Regalado M.D. Attending Pathologist. DDB/DDB 12.10.2023 13:39 [facility] AP Specimen FOOT STRUCTURE / Unknown 12/10/2023 11:07 AM CDT Comment:OR: Routine gross an d microscopic examination Tissue: 1st metatarsel left foot, cut margin Site: foot Additional clinical information: us Suzy Patino DPM LAB PATHOLOGY Final Resu lt Performing Organization Address [facility]/ZIP Co de Phone Number [facility] [address] [address] * (ABNORMAL) POC GLUCOSE (12/10/2023 6:16 AM CDT) POC Glucose 228(H) 70 - 100 mg/dL [facility] Blood 12/10/2023 6:16 AM CDT us Eusebio Vivar MD LABORATORY Final Result Performing Organization Address City/[facility]/ZIP Co de Phone Number [facility] [address] [place] [address], * (ABNORMAL) CBC WITH PLTS/AUTO DIFF (12/10/2023 5:06 AM CDT) WBC 8.35 4.00 - 10.00 k/cmm [facility] RBC 3.81(L) 4.60 - 6.00 m/cmm [facility] Hgb 10.3(L) 13.1 - 17.5 g/dL [facility] Hematocrit 32.5(L) 40.0 - 51.0 % [facility] MCV 85.3 80.0 - 100.0 fL [facility] MCH 27.0 25.0 - 32.0 pg [facility] MCHC 31.7 31.0 - 36.0 g/dL [facility] RDW 13.4 11.5 - 14.5 % [facility] Plt 377 150 - 400 k/cmm [facility] MPV 9.4 6.5 - 12.5 fL [facility] Automated Abs Neutrophil 4.14 1.70 - 6.50 k/cmm [facility] Comment:Preliminary ANC, Fin al Result to Follow Abs Immature Granulocyte 0.08 0.00 - 0.09 k/cmm [facility] Comment:The Immature Granulo cyte Absolute count contains metamyelocytes and myelocytes. Abs Neutrophil 4.14 1.70 - 6.50 k/cmm [facility] Abs Lymphocyte 2.39 0.80 - 4.00 k/cmm [facility] Abs Monocyte 1.06(H) 0.20 - 1.00 k/cmm [facility] Abs Eosinophil 0.64(H) 0.00 - 0.60 k/cmm [facility] Abs Basophil 0.04 0.00 - 0.20 k/cmm [facility] Blood 12/10/2023 5:06 AM CDT 12/10/2023 5:40 AM CDT us Igor Glover MD LABORATORY Edited Result - Final [facility] [address] [place] [phone] * (ABNORMAL) PANEL BASIC METABOLIC (BMP) (12/10/2023 5:06 AM CDT) CO2 26 22 - 30 mmol/L [facility] Glucose 204(H) 70 - 100 mg/dL [facility] BUN 11 6 - 20 mg/dL [facility] Creatinine 0.92 0.70 - 1.25 mg/dL [facility] Calcium 9.0 8.6 - 10.0 mg/dL [facility] Sodium 137 135 - 148 mmol/L [facility] Potassium 4.2 3.5 - 5.3 mmol/L [facility] Chloride 101 92 - 108 mmol/L [facility] eGFR (2020 CKD-EPI) 105 >=60 ml/min/1.7 3m2 [facility] Comment: The estimated glomerular filtration rate (eGFR) was calculated using the CKD-EPI 2020 creatinine equation, which does not include race as a factor. This equation is validated in individuals 18 years of age and older, and eGFR is normalized to a body surface area of 1.73m^2. AnGap 10 8 - 16 mmol/L [facility] Blood 12/10/2023 5:06 AM CDT 12/10/2023 5:40 AM CDT Igor Glover MD LABORATORY Final Result Performing Organization Address City/[facility]/ZIP Co de Phone Number [facility] [place] [address] * (ABNORMAL) POC GLUCOSE (12/09/2023 9:18 PM CDT) POC Glucose 204(H) 70 - 100 mg/dL [facility] Blood 12/09/2023 9:18 PM CDT us Eusebio Vivar MD LABORATORY Final Result Performing Organization Address City/[facility]/ZIP Co de Phone Number [facility] [address] [place] [address], * (ABNORMAL) PANEL BASIC METABOLIC (BMP) (12/09/2023 5:56 PM CDT) Sodium 134(L) 135 - 148 mmol/L [facility] Potassium 4.2 3.5 - 5.3 mmol/L [facility] Chloride 99 92 - 108 mmol/L [facility] CO2 23 22 - 30 mmol/L [facility] AnGap 12 8 - 16 mmol/L [facility] Glucose 246(H) 70 - 100 mg/dL [facility] BUN 13 6 - 20 mg/dL [facility] Creatinine 0.98 0.70 - 1.25 mg/dL [facility] Calcium 8.8 8.6 - 10.0 mg/dL [facility] eGFR (2020 CKD-EPI) 97 >=60 ml/min/1.7 3m2 [facility] Comment: The estimated glomerular filtration rate (eGFR) was calculated using the CKD-EPI 2020 creatinine equation, which does not include race as a factor. This equation is validated in individuals 18 years of age and older, and eGFR is normalized to a body surface area of 1.73m^2. Blood 12/09/2023 5:56 PM CDT 12/09/2023 6:26 PM CDT us Igor Glover MD LABORATORY Edited Result - Final Performing Organization Address [facility] Co de Phone Number [facility] [address] [address] * VANCOMYCIN LEVEL (12/09/2023 5:56 PM CDT) Vancomycin 22.0 mcg/mL [facility] Comment:Expected Range (Trou gh): 10-20 mcg/ml Blood 12/09/2023 5:56 PM CDT 12/09/2023 6:26 PM CDT Narrative [facility] - 12/09/2023 8:14 PM CDT Peak or trough:->Trough us Gwen Gamez PharmD LABORATORY Final R esult Performing Organization Address [facility]/ZIP Co de Phone Number [facility] [address] [address] * (ABNORMAL) POC GLUCOSE (12/09/2023 4:08 PM CDT) POC Glucose 231(H) 70 - 100 mg/dL [facility] Blood 12/09/2023 4:08 PM CDT us Eusebio Vivar MD LABORATORY Final Result Performing Organization Address City/[facility]/ZIP Co de Phone Number [facility] [address] [place] [address], [place] * (ABNORMAL) POC GLUCOSE (12/09/2023 11:13 AM CDT) POC Glucose 282(H) 70 - 100 mg/dL [facility] Blood 12/09/2023 11:1 3 AM CDT us Eusebio Vivar MD LABORATORY Final Result Performing Organization Address [facility] Co de Phone Number [facility] [address] [place] [address], [place] * HBO TCO2 MEASUREMENT COMPLETE (12/09/2023 [...] Reg 2002; 10:198-207. Bridget QUIÑONEZ et al. [facility] 2009, Vol. 36(1). ? [place] 07/27/13 us Suzy Shafer PA-C HYPERBARIC CHAMBER Final Result * HBO ANGIOGRAPHY EXTREMITY UNILATERAL (12/09/2023 8:57 [...] closure. David Cortes MD, 12/09/2023 4:15 PM us Suzy Shafer PA-C RAD ULT Final Res ult * (ABNORMAL) POC GLUCOSE (12/09/2023 6:43 AM CDT) POC Glucose 198(H) 70 - 100 mg/dL [facility] Blood 12/09/2023 6:43 AM CDT Eusebio Vivar MD LABORATORY Final Result Performing Organization Address [facility] de Phone Number [facility] [address] [place] [address], [place] * (ABNORMAL) POC GLUCOSE (12/08/2023 9:10 PM CDT) POC Glucose 268(H) 70 - 100 mg/dL [facility] Blood 12/08/2023 9:10 PM CDT Eusebio Vivar MD LABORATORY Final Result Performing Organization Address [facility] de Phone Number [facility] [address] [place] [address], [place] * (ABNORMAL) SED RATE (ESR) (12/08/2023 4:47 PM CDT) Sed Rate 120(H) 2 - 10 mm/hr [facility] Blood 12/08/2023 4:47 PM CDT 12/08/2023 5:07 PM CDT Suzy Shafer PA-C LABORATORY Final Res ult Performing Organization Address [facility]/ZIP Co de Phone Number [facility] [address] [address] * (ABNORMAL) PANEL BASIC METABOLIC (BMP) (12/08/2023 4:47 PM CDT) Sodium 134(L) 135 - 148 mmol/L [facility] Potassium 4.0 3.5 - 5.3 mmol/L [facility] Chloride 98 92 - 108 mmol/L [facility] CO2 24 22 - 30 mmol/L [facility] AnGap 12 8 - 16 mmol/L [facility] Glucose 247(H) 70 - 100 mg/dL [facility] BUN 16 6 - 20 mg/dL [facility] Creatinine 0.98 0.70 - 1.25 mg/dL [facility] Calcium 8.7 8.6 - 10.0 mg/dL [facility] eGFR (2020 CKD-EPI) 97 >=60 ml/min/1.7 3m2 [facility] Comment: The estimated glomerular filtration rate (eGFR) was calculated using the CKD-EPI 2020 creatinine equation, which does not include race as a factor. This equation is validated in individuals 18 years of age and older, and eGFR is normalized to a body surface area of 1.73m^2. Blood 12/08/2023 4:47 PM CDT 12/08/2023 5:07 PM CDT us Suzy Shafer PA-C LABORATORY Edited Re sult - Final [address] [address] * (ABNORMAL) GLYCOSYLATED HGB - A1C (12/08/2023 4:47 PM CDT) Hemoglobin A1C 8.5(H) 4.0 - 5.6 % [facility] Comment: Increased risk for diabetes (prediabetes): 5.7-6.4% Diabetes >=6.5% In the absence of unequivocal hyperglycemia, diagnosis requires two abnormal test results (i.e. HbA1c and glucose) or two abnormal results from specimens collected at two different timepoints. The presence of some hemoglobin variants or red cell disorders may interfere with the measurement of hemoglobin A1c (HbA1c). Estimated Average Glucose 197(H) 68 - 114 [facility] Comment: The estimated Average Glucose (eAG) was calculated using an equation derived from a study of 507 adults with type 1, type 2, or no diabetes. Minority populations were underrepresented and children were not included. The eAG is not equivalent to a fasting glucose concentration. Blood 12/08/2023 4:47 PM CDT 12/08/2023 5:07 PM CDT Narrative [facility] - 12/08/2023 6:01 PM CDT If not done in the last 30 days. Suzy Shafer PA-C LABORATORY Final Res ult Performing Organization Address [facility]/ZIP Co de Phone Number [facility] [address] [address] * (ABNORMAL) CBC WITH PLATELET (12/08/2023 4:47 PM CDT) WBC 10.39(H) 4.00 - 10.00 k/cmm [facility] RBC 3.59(L) 4.60 - 6.00 m/cmm [facility] Hgb 9.8(L) 13.1 - 17.5 g/dL [facility] Hematocrit 30.8(L) 40.0 - 51.0 % [facility] MCV 85.8 80.0 - 100.0 fL [facility] MCH 27.3 25.0 - 32.0 pg [facility] MCHC 31.8 31.0 - 36.0 g/dL [facility] RDW 13.5 11.5 - 14.5 % [facility] Plt 314 150 - 400 k/cmm [facility] MPV 9.3 6.5 - 12.5 fL [facility] Blood 12/08/2023 4:47 PM CDT 12/08/2023 5:07 PM CDT Suzy Shafer PA-C LABORATORY Final Res ult Performing Organization Address [facility]/ZIP Co de Phone Number [facility] [address] [address] * (ABNORMAL) C-REACTIVE PROTEIN (12/08/2023 4:47 PM CDT) C-Reactive Protein 77(H) <=4 mg/L [facility] Blood 12/08/2023 4:47 PM CDT 12/08/2023 5:07 PM CDT Suzy Shafer PA-C LABORATORY Final Res ult Performing Organization Address City/[facility]/ZIP Co de Phone Number [facility] [place] [address] * (ABNORMAL) POC GLUCOSE (12/08/2023 4:20 PM CDT) POC Glucose 204(H) 70 - 100 mg/dL [facility] Blood 12/08/2023 4:20 PM CDT Eusebio Vivar MD LABORATORY Final Result Performing Organization Address [facility] Co de Phone Number [facility] [place] [address], [place] * (ABNORMAL) POC GLUCOSE (12/08/2023 12:35 PM CDT) POC Glucose 227(H) 70 - 100 mg/dL [facility] Blood 12/08/2023 12:3 5 PM CDT Eusebio Vivar MD LABORATORY Final Result Performing Organization Address [facility] Co de Phone Number [facility] [place] [address], [place] * (ABNORMAL) POC GLUCOSE (12/08/2023 10:02 AM CDT) POC Glucose 263(H) 70 - 100 mg/dL [facility] Blood 12/08/2023 10:0 2 AM CDT Eusebio Vivar MD LABORATORY Final Result [facility] [facility] [address] [address], [place] * XR FOOT LEFT 3 V [...] post first metatarsal head resection. Reading Radiologist: Dvaid Bedoya us Mirta Urena MD RAD XRAY Final Res ult * (ABNORMAL) POC GLUCOSE (12/08/2023 8:32 AM CDT) POC Glucose 214(H) 70 - 100 mg/dL [facility] Blood 12/08/2023 8:32 AM CDT us Euseboi Vivar MD LABORATORY Final Result [facility] [place] [address], * SURGICAL PATHOLOGY (12/08/2023 7:56 AM CDT) SURG PATH FINAL ?Surgical Pathology Report Collection Date: ?12/08/2023 07:56 CDT ?Ordering Physician: ? CHE PALOMO Received Date: ?12/08/2023 08:41 CDT ?Accession Number: ? [id number] ? Surgical Pathology Final Report Specimen Type: [...] specimen reveals a yellow, trabeculated cut surface. Manager Convention sections are submitted following decalcification as follows: A1: Resection margin, en face A2: Full cross-section of metatarsal head (DDB) DDB/DDB 12.08.2023 9:52 Microscopic Description: Microscopic examination performed and findings are reflected in the final diagnosis. I personally examined the relevant preparations and rendered and confirmed the diagnosis. ? Signed - Tootie Mackenzie M.D. Attending Pathologist. DDB/DDB 12.08.2023 9:52 [facility] AP Specimen FOOT STRUCTURE / Unknown 12/08/2023 7:56 AM CDT Comment:OR: Routine gross an d microscopic examination Tissue: Left first metatarsal head Site: left foot Additional clinical information: evaluate cut side for osteomyelitis Che DOWNING LAB PATHOLOGY Final Res ult Performing Organization Address [facility] Co de Phone Number [address] [address] * FUNGUS CULTURE:INCLUDES SUHAS (12/08/2023 7:51 AM CDT) Final Report No fungus isolated. [facility] SUHAS Prep No fungal elements seen. [facility] Bone STRUCTURE OF LEFT FOOT / Unknown 12/08/2023 7:51 AM CDT 12/08/2023 9:00 AM CDT Comment:2. Bone first metata rsal left foot Che Palomo DP LAB MICROBIOLOGY Final Re sult Performing Organization Address [facility] Co de Phone Number [facility] [address] [address] * ANAEROBE CULTURE (12/08/2023 7:51 AM CDT) Final Report No anaerobes isolated. [facility] Bone STRUCTURE OF LEFT FOOT / Unknown 12/08/2023 7:51 AM CDT 12/08/2023 9:00 AM CDT Comment:2. Bone first metata rsal left foot Che Palomo DPM LAB MICROBIOLOGY Final Re sult Performing Organization Address [facility] de Phone Number [facility] [address] [address] * (ABNORMAL) TISSUE CULTURE:INCLUDES GRAM STAIN (12/08/2023 7:51 AM CDT) Final Report Positive Culture Few METHICILLIN RESISTANT Staphylococcus aureus (MRSA) isolated. 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 For susceptibility, see previous report on culture from wound culture collected 12/07/23. (POS) [facility] Organism METHICILLIN RESISTANT STAPHYLOCOCCUS AUREUS (MRSA)(POS) [facility] Gram Stain Report Corrected Report Positive Gram stain Rare PMN's seen. Rare gram positive cocci. Gram stain electronically reported to and acknowledged by: Dr. Healy Marker from OR at ??12/08/2023 10:09:09 by Jacklyn Easley MLS. Removed Pleomorphic gram variable bacilli from report. Results electronically reported to and acknowledged by: Dr. Igor Glover [facility] 12/09/2023 12:48:27. Elizabeth Schwartz MLS. (POS) [facility] Bone STRUCTURE OF LEFT FOOT / Unknown 12/08/2023 7:51 AM CDT 12/08/2023 9:00 AM CDT Comment:2. Bone first metata rsal left foot Che Palomo DP LAB MICROBIOLOGY Final Re sult Performing Organization Address [facility] de Phone Number [facility] [address] [address] * (ABNORMAL) TISSUE CULTURE:INCLUDES GRAM STAIN (12/08/2023 7:51 AM CDT) Final Report Positive Culture Few METHICILLIN RESISTANT Staphylococcus aureus (MRSA) isolated. 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 For susceptibility, see previous report on culture from wound culture collected 12/07/23. Rare Corynebacterium striatum group isolated. A member of the diphtheroid bacilli. (POS) [facility] Organism METHICILLIN RESISTANT STAPHYLOCOCCUS AUREUS (MRSA)(POS) [facility] Organism CORYNEBACTERIUM STRIATUM GROUP(POS) [facility] Gram Stain Report Positive Gram stain Rare PMN's seen. Rare gram positive cocci. Gram stain electronically reported to and acknowledged by: Dr. Niraj Lewis from OR at ??12/08/2023 10:09:09 by Jacklyn Easley MLS. (POS) [facility] Tissue FOOT STRUCTURE / Unknown 12/08/2023 7:51 AM CDT Comment:Add Aerobic Narrative [facility] - 12/10/2023 2:22 PM CDT Add Aerobic us Che L Beth DPM LAB MICROBIOLOGY Final Re sult Performing Organization Address [facility] Co de Phone Number [facility] [address] [address] * FUNGUS CULTURE:INCLUDES SUHAS (12/08/2023 7:51 AM CDT) Final Report No fungus isolated. [facility] SUHAS Prep No fungal elements seen. [facility] Tissue FOOT STRUCTURE / Unknown 12/08/2023 7:51 AM CDT Comment:Add Aerobic Narrative [facility] - 01/05/2024 8:10 AM CDT Add Aerobic us Che L Beth DPM LAB MICROBIOLOGY Final Re sult Performing Organization Address [facility] Co de Phone Number [facility] [address] [address] * ANAEROBE CULTURE (12/08/2023 7:51 AM CDT) Final Report No anaerobes isolated. [facility] Tissue FOOT STRUCTURE / Unknown 12/08/2023 7:51 AM CDT Comment:Add Aerobic Narrative [facility] - 12/14/2023 9:06 AM CDT Add Aerobic us Che L Beth DPM LAB MICROBIOLOGY Final Re sult Performing Organization Address [facility]/ZIP Co de Phone Number [facility] [address] [address] * (ABNORMAL) POC GLUCOSE (12/08/2023 7:22 AM CDT) Pathologist [facility] POC Glucose 236(H) 70 - 100 mg/dL [facility] Blood 12/08/2023 7:22 AM CDT Eusebio Vivar MD LABORATORY Final Result Performing Organization Address [facility] Co de Phone Number [facility] [address] [place] [address], * EXTRA TUBE - BLUE (12/07/2023 4:05 PM CDT) Pathologist [facility] BLUE TUBE [facility] Comment:Blue top(Sodium citr ate) tubes are kept for 3 days from the collection date. Blood 12/07/2023 4:05 PM CDT 12/07/2023 4:24 PM CDT Eusebio Vivar MD LABORATORY Final Result Performing Organization Address [facility] Co de Phone Number [facility] [place] [address] * EXTRA TUBE - DARK GREEN (12/07/2023 4:05 PM CDT) [facility] DARK GREEN TUBE Stored [facility] Comment:Dark Green tubes (Li thium Heparin) are stored in the lab for 1 day from the collection date. Blood 12/07/2023 4:05 PM CDT 12/07/2023 4:24 PM CDT Eusebio Vivar MD LABORATORY Final Result Performing Organization Address [facility] Co de Phone Number [facility] [address] [address] * (ABNORMAL) ED CHEMISTRY LABS(NA,K,CL,CO2,GLU,CREAT,CA-IONIZED,ANION GAP) (12/07/2023 4:05 PM CDT) [facility] Sodium 139 135 - 148 mmol/L [facility] Chloride 97 92 - 108 mmol/L [facility] AnGap 15 8 - 16 mmol/L [facility] Glucose 284(H) 70 - 100 mg/dL [facility] ICA, Actual 4.89 4.40 - 5.20 mg/dL [facility] ICA, pH Corrected 4.74 4.40 - 5.20 mg/dL [facility] Creatinine 1.26(H) 0.70 - 1.25 mg/dL [facility] BICARB 26 22 - 26 mEq/L [facility] eGFR (2020 CKD-EPI) 72 >=60 ml/min/1.7 3m2 [facility] Comment: The estimated glomerular filtration rate (eGFR) was calculated using the CKD-EPI 2020 creatinine equation, which does not include race as a factor. This equation is validated in individuals 18 years of age and older, and eGFR is normalized to a body surface area of 1.73m^2. Potassium 4.5 3.5 - 5.3 mmol/L [facility] Blood 12/07/2023 4:05 PM CDT 12/07/2023 4:27 PM CDT us Eusebio Vivar MD LABORATORY Final Result [facility] [address] [place] [address] * (ABNORMAL) CBC WITH PLTS/AUTO DIFF (12/07/2023 4:05 PM CDT) WBC 9.80 4.00 - 10.00 k/cmm [facility] RBC 4.08(L) 4.60 - 6.00 m/cmm [facility] Hgb 11.2(L) 13.1 - 17.5 g/dL [facility] Hematocrit 34.7(L) 40.0 - 51.0 % [facility] MCV 85.0 80.0 - 100.0 fL [facility] MCH 27.5 25.0 - 32.0 pg [facility] MCHC 32.3 31.0 - 36.0 g/dL [facility] RDW 13.7 11.5 - 14.5 % [facility] Plt 324 150 - 400 k/cmm [facility] MPV 9.4 6.5 - 12.5 fL [facility] Automated Abs Neutrophil 5.37 1.70 - 6.50 k/cmm [facility] Comment:Preliminary ANC, Fin al Result to Follow Abs Immature Granulocyte 0.12(H) 0.00 - 0.09 k/cmm [facility] Comment:The Immature Granulo cyte Absolute count contains metamyelocytes and myelocytes. Abs Neutrophil 5.37 1.70 - 6.50 k/cmm [facility] Abs Lymphocyte 2.61 0.80 - 4.00 k/cmm [facility] Abs Monocyte 1.32(H) 0.20 - 1.00 k/cmm [facility] Abs Eosinophil 0.34 0.00 - 0.60 k/cmm [facility] Abs Basophil 0.04 0.00 - 0.20 k/cmm [facility] Blood 12/07/2023 4:05 PM CDT 12/07/2023 4:51 PM CDT Eusebio Vivar MD LABORATORY Edited Result - Final [address] [address] * LACTATE (LACTIC ACID) (12/07/2023 4:05 PM CDT) Pathologist [facility] Lactate 2.1 0.7 - 2.1 mmol/L [facility] Blood 12/07/2023 4:05 PM CDT 12/07/2023 4:27 PM CDT Narrative [facility] - 12/07/2023 4:27 PM CDT Send specimen on ice! us Eusebio Vivar MD LABORATORY Final Result [address] [address] * (ABNORMAL) C-REACTIVE PROTEIN (12/07/2023 4:05 PM CDT) C-Reactive Protein 82(H) <=4 mg/L [facility] Blood 12/07/2023 4:05 PM CDT 12/07/2023 4:51 PM CDT Eusebio Vivar MD LABORATORY Final Result Performing Organization Address [facility]/ZIP Co de Phone Number [address] [address] * (ABNORMAL) SED RATE (ESR) (12/07/2023 4:05 PM CDT) Sed Rate 120(H) 2 - 10 mm/hr [facility] Blood 12/07/2023 4:05 PM CDT 12/07/2023 4:51 PM CDT Eusebio Vivar MD LABORATORY Final Result Performing Organization Address [facility] Co de Phone Number [address] [address] * BLOOD AEROBIC/ANAEROBIC CULTURE (12/07/2023 4:05 PM CDT) Final Report No growth after 5 days. [facility] Blood (Peripheral) 12/07/2023 4:05 PM CDT 12/07/2023 7:55 PM CDT Eusebio Vivar MD LAB MICROBIOLOGY Final Result Performing Organization Address [facility] Co de Phone Number [address] [address] documented in this encounter Visit Diagnoses Diagnosis [...] First dose on Wed12/08/23 at 0820, Until DiscontinuedIndications:Hypertension Given 12/14/2023 10:35 AM CDT 10 mg [...] First dose on Wed12/08/23 at 2000, Until DiscontinuedIndications:Generalized Anxiety Disorder Given 12/13/2023 8:15 PM CDT 20 mg [...] modification) on Wed12/11/23 at 0800, Until Discontinued Given 12/12/2023 9:17 [...] First dose on Wed12/09/23 at 0800, Until DiscontinuedIndications:Seasonal Allergic Rhinitis Given 12/14/2023 10:36 AM CDT 10 mg [...] Until Wed12/14/23 at 1538, Nicotine Craving (Use First)Indications:Nicotine Dependence Given 12/12/2023 6:45 PM CDT 2 mg [...] First dose on Wed12/08/23 at 2000, Until DiscontinuedIndications:Hypertension Given 12/13/2023 8:15 PM CDT 1 mg Given 12/12/2023 9:03 PM CDT 1 mg Given 12/11/2023 9:01 PM CDT 1 mg rosuvastatin (CRESTOR) tablet 10 mg 10 mg, Oral, BEDTIME, First dose on Wed12/08/23 at 2000, Until DiscontinuedIndications:Mixed Dyslipidemia Given 12/13/2023 8:15 PM CDT 1 0 mg Given 12/12/2023 9:04 PM CDT 10 mg Given 12/11/2023 9:01 PM CDT 10 mg traZODone (DESYREL) tablet 50 mg 50 mg, Oral, BEDTIME, First dose on Wed12/08/23 at 2000, Until DiscontinuedIndications:Insomnia Given 12/13/2023 8:15 PM CDT 50 mg [...] PM CDT 1,500 mg 257.5 mL/hr New Bag 12/11/2023 5:40 AM CDT 1,500 mg 257.5 [...] on Wed12/08/23 at 1800, Until Discontinued New Bag 12/09/2023 7:03 PM CDT 2,000 mg 208 mL/hr New Bag 12/09/2023 6:45 AM CDT 2,000 mg 208 mL/hr New 12/08/2023 9:26 PM CDT 2,000 mg 208 mL/hr vancomycin (VANCOCIN) 3,000 mg in NaCl 0.9% IVPB 3,000 mg (rounded from 3,572.5 mg = 25 mg/kg ? 142.9 kg Order-specific weight), Dose By? Phamacist to Dose, Indication (Select One): Infection - Suspected, SITE (Select all that apply): Skin/Soft Tissue, Bone/Joint, Cultures Ordered? No, Intravenous, ONE TIME, 1 dose, On Wed12/07/23 at 1755 New 12/07/2023 7:08 PM CDT 3,000 mg 200 mL/h r vancomycin (VANCOCIN) 500 mg in NaCl 0.9% 250 mL IVPB 500 mg, Indication (Select One): Infection - Suspected, SITE (Select all that apply): Skin/Soft Tissue, Cultures Ordered? No, Dose By? Phamacist to Dose, Intravenous, ONE TIME, 1 dose, On Wed12/08/23 at 0955 New 12/08/2023 10:01 AM CDT 500 mg 170 [...] Rosado RN)1545 (Given - Provider: Sravani Rosado RN)210 (Given - Provider: Susie Matson RN) 0917 [...] (Not Given (removes Due time) - Provider: Kaet Sarmiento RN - Reason: Per protocol) insulin GLARGINE (LANTUS) 30 UNITS injection vial (CANCELED) 30 UNITS, Subcutaneous, Q24H, First dose (after last modification) on Wed12/11/23 at 0800, Until Discontinued 09 (Dual Sign-Off - Provider: Laura Sarabia RN)09 (Given - Provider: Sravani Rosado RN) insulin GLARGINE (LANTUS) 33 UNITS injection vial 33 UNITS, Subcutaneous, Q24H, First dose (after last modification) on Wed12/13/23 at 0800, Until Discontinued 918 (Delayed (keeps Due time) - Provider: Natasha Vivar RN - Reason: Patient not in room - Comment: HBO)1003 (Dual Sign-Off - Provider: Natasha Vivar RN)1010 (Given - Provider: Natasha Vivar RN) 1029 (Dual Sign-Off - Provider: Dawood Sargent RN)1036 (Given - Provider: Dawood Sargent RN) loratadine (CLARITIN) tablet 10 mg 10 mg, Oral, DAILY, First dose on Wed12/09/23 at 0800, Until Discontinued 09 (Given - Provider: Sravani Rosado RN) 0919 [...] Vivar RN)1011 (Patch applied - Provider: Natasha Vivar, RN) 1035 (Patch removed - Provider: Dawood [...] RN)1843 (New Bag - Provider: Dawood Sargent, SABINE)2030 (Infusion completed - Provider: Susie Matson RN) 0556 (New Bag - Provider: Susie Matson RN)0920 (Infusion completed - Provider: Natasha Vivar, SABINE)1759 (New Bag - Provider: Natasha Vivar, SABINE)1930 (Infusion completed - Provider: Kate Sarmiento RN) 0523 (New Bag - Provider: Kate Sarmiento RN)0735 (Infusion completed - Provider: Dawood Sargent, RN) PRN Medication Order 12/12/2023 12/13/2023 12/14/2023 [...] Comment: HBO)1008 (Given - Provider: Natasha Vivar, SABINE) 1145 (Given - Provider: Dawood Sargent RN) Linked Groups Order Group 1: DC MED REC REVIEW BY PHARMACYJump to med Discharge Date: 12/12/2023, Discharge Location: Subacute Rehab, Anticipated Discharge Time: After 2 pm, Discharge Medication Orders: DC Med Orders Final, Does not apply, PROTOCOL, Starting on 12/12/23 at 1005, Until 12/14/23 at 1538 And Discharge Med Rec Final [...]
--- OUTSIDE RECORDS SUMMARY | 2024-03-20 09:02 | XMS_ITS | Encounter Summary ---
Author Organization [facility] Address [address] [place] [address] Phone Care Team Providers Care Treating Plant Operator Name Role Phone Unavailable Primary Care [...]
--- OUTSIDE RECORDS SUMMARY | 2024-03-20 09:02 | XMS_ITS | Encounter Summary ---
Author Organization [facility] Address [address] [place] [address] Phone Care Team Providers Care Utility Gelatin Maker Name Role Phone Unavailable Primary Care [...]
--- OUTSIDE RECORDS SUMMARY | 2024-03-20 09:02 | XMS_ITS | Encounter Summary ---
Author Organization [facility] Address [address] [place] [address] Phone Care Team Providers Care Scene And Lighting Design Lecturer Name Role Phone Unavailable Primary Care Provider [...]
--- OUTSIDE RECORDS SUMMARY | 2024-03-20 09:02 | XMS_ITS | Encounter Summary ---
Author Organization [facility] Address [address] [place] [address] Phone Care Team Providers Care Director Talent Name Role Phone Unavailable Primary Care Provider [...]
--- OUTSIDE RECORDS SUMMARY | 2024-03-20 09:02 | XMS_ITS | Encounter Summary ---
Author Organization [facility] Address [address] [place] [address] Phone Care Team Providers Care Gaming Associate Name Role Phone Unavailable Primary Care Provider Unavailabl e Encounter Details Date Type Department Care Team (Late st Contact Info) Description 11/10/2023 Orders Only [facility] Radiology Department DANISHA [address] [address] Provider, Outside [place] [address] Referral of patient (Primary Dx) Social History [...] FILMS (11/10/2023 10:46 AM CDT) Narrative User, [id number] - 11/10/2023 3:20 PM CDT Outside Film Only us Outside Provider RAD OUTSIDE FILMS Final Result documented in this encounter Visit Diagnoses Diagnosis Referral of patient- Primary Referral of patient without examination or treatment documented in this encounter Additional Health Concerns Infection Onset Date Last Indicated Resolved Time 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
--- OUTSIDE RECORDS SUMMARY | 2024-03-20 09:02 | XMS_ITS | Encounter Summary ---
Author Organization [facility] Address [address] [place] [address] Phone Care Team Providers Care Jewel Hole Gauger Name Role Phone Unavailable Primary Care Provider [...]
--- OUTSIDE RECORDS SUMMARY | 2024-03-20 09:02 | XMS_ITS | Encounter Summary ---
Author Organization [facility] Address [address] [place] [address] Phone Care Team Providers Care Market Master Name Role Phone Unavailable Primary Care Provider [...]
--- OUTSIDE RECORDS SUMMARY | 2024-03-20 09:02 | XMS_ITS | Clinical Summary ---
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 1 Each 07/24/19 23 Active durable medical equipment (DME)Indications:F ollow-up examination after orthopedic surgery,Osteomyeli tis of right foot, unspecified type (HC),Diabetic ulcer of right midfoot associated with type 2 diabetes mellitus, with necrosis of muscle (HC) SQUARED TOE POST OP SHOE, LARGE, REF: [phone] 1 Each 10/15/19 23 Active ondansetron (ZOFRAN [...] SQUARED TOE POST OP SHOE, LARGE, REF: [phone] 1 Each 12/31/19 23 Active acetaminophen (TYLENOL [...] doses. 75 Each 10/27/19 24 Active transmitter (Sellplex G6 Transmitter) for continuous blood glucose monitor [...] Department Care Team Description 02/29/2024 Orders Only [facility] Scanner 1 scan: (1-Ord) [facility], 02/29/2024 02/27/2024 Refill [facility] [address] [place] [address] Jose R Foster MD Refill Request (Chlorhexidine) 02/22/2024 Refill [facility] [address] [place] [address] Jose R Foster MD Refill Request (Acetaminophen, Stimulant Laxative Plus) 02/22/2024 Refill [facility] [address] [place] [address] Jose R Foster MD Refill Request (Amlodipine, Cyclobenzaprine) 02/02/2024 3:20 PM CDT Office Visit [facility] [address] [place] [address] Jose R Foster MD Diabetes; Hospital F/U ([facility], 12/07/23, left foot); Wound Check (groin) 02/02/2024 Travel 01/25/2024 1:30 PM CDT Office Visit [facility] [address] [place] [address] Trey Kim MD Follow Up; Medication Management (feeling, good. I'm sad, because my taxi tickets didn't come in yet. And my back is really sore) 01/25/2024 Travel 01/24/2024 Refill [facility] [address] [place] [address] Jose R Foster MD Refill Request (Dexcom [...] Used Date Smoking Tobacco: Every Day Cigarettes 1.4 16.7 Started: 08/17/2002; Last attempted to quit: [...] st Contact Info) Description 03/29/2024 2:30 PM FRICKERTRON CHECKER Office Visit [facility] [address] [place] [address] Vini Hayden DPM 1400 [facility] [place] [address] 05/11/2024 10:50 AM FRICKERTRON CHECKER Office Visit [facility] [address] [place] [address] Jose R Foster MD [address] [place] [address] Health Maintenance Due Date Last Done Comments [...] A1C 10.0(H) <6.0 % OF TOTAL HGB [facility] Comment: Any point of care results exhibiting inconsistency with the patient's clinical status should be repeated using a different testing method. Blood BLOOD SPECIMEN / Unknown 02/02/2024 3:14 PM CDT 02/02/2024 3:14 PM CDT Jose R Foster MD CHEMISTRY [facility] [address] [place] [address], [facility] [address] [place] [address] * (ABNORMAL) CBC WITH AUTO DIFFERENTIAL (02/02/2024 [...] CDT Jose R Foster MD HEMATOLOGY [facility] [address] [place] [address], [place] [phone] [facility] [address] [place] [address] * (ABNORMAL) BASIC METABOLIC PANEL (02/02/2024 3:13 PM CDT) GLUCOSE 326(H) 65 - 99 mg/dL [facility] Comment: ? Fasting reference interval [...] CALCIUM 9.1 8.6 - 10.3 mg/dL [facility] Blood BLOOD SPECIMEN / Unknown 02/02/2024 3:13 PM CDT 02/02/2024 3:13 PM CDT Jose R Foster MD CHEMISTRY [employer] [facility] [facility] [address] [place] [address], [facility] [address] [place] [address] * (ABNORMAL) LIPID PANEL W REFLEX MEASURED LDL (07/27/2023 2:22 PM CDT) CHOLESTEROL,TOTAL 190 100 - 199 mg/dL 07/27/2023 9:24 PM CDT [facility] Comment: Cholesterol, Total Reference Ranges Desirable <200 mg/dL Borderline 200-239 mg/dL High >=240 mg/dL TRIGLYCERIDES 340(H) <150 mg/dL 07/27/2023 9:24 PM CDT [facility] HDL CHOLESTEROL 45 >40 mg/dL 9:24 PM CDT [facility] NON-HDL CHOLESTEROL 145(H) <145 mg/dl 07/27/2023 9:24 PM CDT [facility] CHOL/HDL RATIO 4.22 <4.50 07/27/2023 9:24 PM CDT [facility] LDL CHOLESTEROL 77 <=130 mg/dL 07/27/2023 9:24 PM CDT [facility] VLDL CHOLESTEROL 68(H) <=30 mg/dL 07/27/2023 9:24 PM CDT [facility] PROVIDER ORDERED STATUS RANDOM 07/27/2023 9:24 PM CDT [facility] Blood BLOOD SPECIMEN / Unknown Venipuncture / Unknown 07/27/2023 2:22 PM CDT 07/27/2023 2:25 PM CDT Trey Kim MD CHEMISTRY [facility] [address] [place] [address], from Last 3 Months or Most Recently [...] 8:06 AM 11/08/2018 2:17 PM Care Teams Wood Club Neck Whipper Relationship Specialty Start Date End Date VotelJose R MD [address] [place] [address] PCP - General Family Practice 07/23/22 Nghia Arauz MD Family Practice 12/25/10
== END 2024-03-20 08:58 | disposition home or self-care (01) ==
LOC: WOUND 08:57
PROVIDERS: PCP Family Medicine; Visit Provider Family Medicine
DX: E11.622 Type 2 diabetes mellitus with other skin ulcer (principal); L98.412 Non-pressure chronic ulcer of buttock with fat layer exposed; Z79.4 Long term (current) use of insulin
CPT/HCPCS: 11042

== ENCOUNTER 2024-03-27 08:54 | Outpatient (CLI) | payer MEDICARE, MEDICAID, SELFPAY ==
--- OUTSIDE RECORDS SUMMARY | 2024-03-27 08:59 | XMS_ITS | Encounter Summary ---
Author Organization 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 [...] He is hoping he can move his [place] [facility]. He has no other question or concerns [...] S/P foot surgery, right- Primary 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[facility]) documented in this encounter Additional Health Concerns Infection Onset Date Last Indicated Resolved Time 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
--- OUTSIDE RECORDS SUMMARY | 2024-03-27 08:59 | XMS_ITS | Encounter Summary ---
Author Organization [facility] Address [address] [place] [address] Phone Care Team Providers Care Pump Tester Name Role Phone Unavailable Primary Care [...]
--- OUTSIDE RECORDS SUMMARY | 2024-03-27 08:59 | XMS_ITS | Encounter Summary ---
Author Organization [facility] Address [address] [place] [address] Phone Care Team Providers Care Child Monitor Name Role Phone Unavailable Primary Care Provider Unavailabl e Encounter Details Date Type Department Care Team (Late st Contact Info) Description 01/06/2024 9:40 AM CDT - 01/06/2024 11:59 PM CDT Hospital Encounter [facility]baric [address] [place], [place] [address] David Cortes MD [address] [facility] [address] [place], [place] [address] Discharge Disposition: Discharged to home or self [...]
--- OUTSIDE RECORDS SUMMARY | 2024-03-27 08:59 | XMS_ITS | Encounter Summary ---
Author Organization [facility] Address [address] [place] [address] Phone Care Team Providers Care Fitting Room Attendant Name Role Phone Unavailable Primary Care Provider Unavailabl e Encounter Details Date Type Department Care Team (Late st Contact Info) Description 01/05/2024 Orders Only [facility] [place] [address] [place], [place] [address] Talita Patel MD [address] [place], [place] [phone] Social History Tobacco Use Types Packs/Day Years [...]
--- OUTSIDE RECORDS SUMMARY | 2024-03-27 08:59 | XMS_ITS | Encounter Summary ---
Author Organization [facility] Address [address] [place] [address] Phone Care Team Providers Care Plant Operator Control Room Operator Name Role Phone Unavailable Primary [...]
--- OUTSIDE RECORDS SUMMARY | 2024-03-27 08:59 | XMS_ITS | Encounter Summary ---
Author Organization [facility] Address [address] [facility] [place] [address] Phone Care Team Providers Care Loaders Name Role Phone Unavailable Primary Care Provider Unavailabl e Encounter Details Date Type Department Care Team (Latest Contact Info) Description 01/19/2024 10:30 AM CDT - 01/19/2024 11:59 PM T Hospital Encounter [facility] Hyperbaric [address] [place] [address] Nikolai Martinez MD [address] [facility] [place], [place] [address] Qltfkhx, Cwk - [phone] Discharge Disposition: Discharged to home or self [...] hesitate to call the Hyperbaric Department at [phone] during clinic hours or page communication center coordinator staff with any updates, questions, or concerns. [...] us Nikolai Martinez MD LABORATORY Final Result [facility]INT OF CARE [address] [place] [address], [place] * (ABNORMAL) POC GLUCOSE (01/19/2024 9:58 AM CDT) POC Glucose 353(H) 70 - 100 mg/dL [facility] Blood 01/19/2024 9:58 AM CDT us Provider Unknown LABORATORY Final Result [facility] [address] [facility] [place] [address], documented in this encounter Visit Diagnoses Diagnosis Soft tissue infection- Primary Unspecified infectious and parasitic diseases Other acute osteomyelitis of left foot (CMS/HHS) documented in this encounter Additional Health Concerns Infection Onset Date Last Indicated Resolved Time 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
--- OUTSIDE RECORDS SUMMARY | 2024-03-27 08:59 | XMS_ITS | Encounter Summary ---
Author Organization [facility] Address [address] [place] [address] Phone Care Team Providers Care Property Preservation Specialist Name Role Phone Unavailable Primary Care Provider Unavailabl e Encounter Details Date Type Department Care Team (Latest Contact Info) Description 01/17/2024 9:42 AM CDT - 01/17/2024 11:59 PM CDT Hospital En[place] [facility] 701 [facility] [address] [place] [address] Masters, Douglas Osuna II, MD 701 [facility] [address] [place], [place] [address] Routine, Ajy - [phone] Discharge Disposition: Discharged to home or self [...] multiple numbers for his convenience locally in [place] for evaluation. HPI, problem list, nursing notes, [...] hesitate to call the Hyperbaric Department at [phone] during clinic hours or page business solution analyst staff with any updates, questions, or [...] POC Glucose 288(H) 70 - 100 mg/dL [facility] - POINT OF CARE Blood 01/17/2024 12:1 9 PM CDT us Douglas Morris II, MD LABORATORY Final Re sult Performing Organization Address [facility] Co de Phone Number [facility] POINT OF CARE [address] [place] [address], [place] * (ABNORMAL) POC GLUCOSE (01/17/2024 9:59 AM CDT) POC Glucose 323(H) 70 - 100 mg/dL [facility] POINT [facility] CARE Blood 01/17/2024 9:59 AM CDT us Douglas Morris II, MD LABORATORY Final Re sult Performing Organization Address [facility] de Phone Number [facility] POINT [facility] [address] [place] [address], [place] documented in this encounter Visit Diagnoses [...]
--- OUTSIDE RECORDS SUMMARY | 2024-03-27 08:59 | XMS_ITS | Encounter Summary ---
Author Organization [facility] Address [address] [place] [address] Phone Care Team Providers Care Auto Emissions Technician Name Role Phone Unavailable Primary Care [...]
--- OUTSIDE RECORDS SUMMARY | 2024-03-27 08:59 | XMS_ITS | Encounter Summary ---
Author Organization [facility] Address [address] [place] [address] Phone Care Team Providers Care Recreation Supervisor Name Role Phone Unavailable Primary Care [...]
--- OUTSIDE RECORDS SUMMARY | 2024-03-27 08:59 | XMS_ITS | Encounter Summary ---
Author Organization [facility] Address [address] [place] [address] Phone Care Team Providers Care Chief Contract Officer Name Role Phone Unavailable Primary Care Provider Unavailabl e Encounter Details Date Type Department Care Team (Late st Contact Info) Description 01/20/2024 9:54 AM CDT - 01/20/2024 11:59 PM CDT Hospital Encounter [facility] [address] [place], [place] [phone] SophiaDavid ward MD 701 [facility] [address] [place], [place] [address] Routine, Hbo - [phone] Discharge Disposition: Discharged to home or self [...] hesitate to call the Hyperbaric Department at [phone] during clinic hours or page weapons system instrument mechanic staff with any updates, questions, or concerns. [...] Cortes MD - 01/20/2024 10:30 AM CDT [facility] HYPERBARIC MEDICINE TREATMENT SUMMARY Consulting physician: Dr. [...] urged continued close follow up with his Final Inspection Supervisor for local wound care and monitoring. We noted our availability should future concern of complicated wound develop or as needed surrounding and in support of surgical interventions. Please do not hesitate to call the Hyperbaric Department at [phone] during clinic hours or page weapons system instrument mechanic staff with any updates, questions, or concerns. Kit Mcconnell MD Hyperbaric Medicine Fellow I reviewed, edited and agree with the treatment summary. David Cortes MD, 01/20/2024 2:51 PM documented in this encounter Plan of Treatment Not on file documented as of this encounter Visit Diagnoses Diagnosis Soft tissue infection- Primary Unspecified infectious and parasitic diseases Other acute osteomyelitis of left foot ([facility]) documented in this encounter Additional Health Concerns Infection Onset Date Last Indicated Resolved Time 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
--- OUTSIDE RECORDS SUMMARY | 2024-03-27 08:59 | XMS_ITS | Encounter Summary ---
Author Organization [facility] Address [address] [place] [address] Phone Care Team Providers Care Project Portfolio Analyst Name Role Phone Unavailable Primary Care [...]
--- OUTSIDE RECORDS SUMMARY | 2024-03-27 08:59 | XMS_ITS | Encounter Summary ---
Author Organization [facility] Address [address] [place] [address] Phone Care Team Providers Care Commanding Officer Traffic Division Name Role Phone Unavailable Primary Care Provider Unavailabl e Encounter Details Date Type Department Care Team (Late st Contact Info) Description 01/06/2024 9:50 AM CDT - 01/06/2024 11:59 PM CDT Hospital Encounter [facility] Hyperbaric [address] [facility] [address] [place], [place] [phone] SophiaDavid ward MD 701 [facility] [address] [place], [place] [address] Routine, Hbo - [id number] Discharge Disposition: Discharged to home or self [...] hesitate to call the Hyperbaric Department at [phone] during clinic hours or page information systems supervisor staff with any updates, questions, or [...] POC Glucose 308(H) 70 - 100 mg/dL [facility] - POINT OF CARE Blood 01/06/2024 9:52 AM CDT us David Cortes MD LABORATORY Final Res ult [facility] - POINT OF CARE [address] [place] [address], documented in this encounter Visit Diagnoses Diagnosis Soft tissue infection- Primary Unspecified infectious and parasitic diseases Other acute osteomyelitis of left foot (CMS/HHS) documented in this encounter Additional Health Concerns Infection Onset Date Last Indicated Resolved Time 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
--- OUTSIDE RECORDS SUMMARY | 2024-03-27 08:59 | XMS_ITS | Encounter Summary ---
Author Organization [facility] Address [address] [place] [address] Phone Care Team Providers Care Combination Window Installer Name Role Phone Unavailable Primary Care Provider Unavailabl e Encounter Details Date Type Department Care Team (Late st Contact Info) Description 01/18/2024 10:06 AM CDT - 01/18/2024 11:59 PM CDT Hospital Encounter [facility] Hyperbaric [address] [place], [place] [address] SophiaDavid ward MD 701 [facility] [address] [place], [place] [address] Routine, Hbo - [phone] Discharge Disposition: Discharged to home or self [...] hesitate to call the Hyperbaric Department at [phone] during clinic hours or page contact lens blocker and cutter staff with any updates, questions, or [...]
--- OUTSIDE RECORDS SUMMARY | 2024-03-27 08:59 | XMS_ITS | Encounter Summary ---
Author Organization [facility] Address [address] [place] [address] Phone Care Team Providers Care Serger Name Role Phone Unavailable Primary Care Provider [...]
--- OUTSIDE RECORDS SUMMARY | 2024-03-27 08:59 | XMS_ITS | Encounter Summary ---
Author Organization [facility] Address [address] [place] [address] Phone Care Team Providers Care Privacy Analyst Name Role Phone Unavailable Primary Care Provider Unavailabl e Encounter Details Date Type Department Care Team (Late st Contact Info) Description 01/12/2024 9:53 AM CDT - 01/12/2024 11:59 PM CDT Hospital Encounter [facility] Hyperbaric [address] [place], [place] [address] SophiaDavid ward MD 701 [facility] [address] [place], [place] [address] Routine, Hbo - [phone] Discharge Disposition: Discharged to home or self [...] hesitate to call the Hyperbaric Department at [phone] during clinic hours or page knitting demonstrator staff with any updates, questions, or [...] POC Glucose 414(H) 70 - 100 mg/dL [facility] - POINT OF CARE Blood 01/12/2024 10:0 2 AM CDT us David Cortes MD LABORATORY Final Res ult [facility] POINT OF CARE [address] [place] [address], [place] documented in this encounter Visit Diagnoses Diagnosis Soft tissue infection- Primary Unspecified infectious and parasitic diseases Other acute osteomyelitis of left foot (CMS/HHS) documented in this encounter Additional Health Concerns Infection Onset Date Last Indicated Resolved Time 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
--- OUTSIDE RECORDS SUMMARY | 2024-03-27 08:59 | XMS_ITS | Encounter Summary ---
Author Organization [facility] Address [address] [facility] [place] [address] Phone Care Team Providers Care Brush Clearing Laborer Name Role Phone Unavailable Primary Care Provider Unavailabl e Encounter Details Date Type Department Care Team (Latest Contact Info) Description 01/07/2024 10:06 AM CDT - 01/07/2024 11:59 PM CDT Hospital Encounter [facility] Hyperbaric [address] [place] [address] Maggy Horan MD [address] [place], [place] [address] Cmomxcl, Coe - [address] Discharge Disposition: Discharged to home or self [...] hesitate to call the Hyperbaric Department at [phone] during clinic hours or page fire prevention engineer staff with any updates, questions, or [...] POC Glucose 344(H) 70 - 100 mg/dL [facility] POINT OF CARE Blood 01/07/2024 12:2 7 PM CDT us Maggy Horan MD LABORATORY Final Result [facility]INT [facility]ARE [address] [place] [address], * (ABNORMAL) POC GLUCOSE (01/07/2024 10:20 AM CDT) POC Glucose 357(H) 70 - 100 mg/dL [facility] POINT OF CARE Blood 01/07/2024 10:2 0 AM CDT us Maggy Horan MD LABORATORY Final Result [facility] [address] [place] [address], documented in this encounter Visit Diagnoses Diagnosis Soft tissue infection- Primary Unspecified infectious and parasitic diseases Other acute osteomyelitis of left foot (CMS/HHS) documented in this encounter Additional Health Concerns Infection Onset Date Last Indicated Resolved Time 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
--- OUTSIDE RECORDS SUMMARY | 2024-03-27 08:59 | XMS_ITS | Encounter Summary ---
Author Organization [facility] Address [address] [place] [address] Phone Care Team Providers Care Head Animal Keeper Name Role Phone Unavailable Primary Care Provider [...]
--- OUTSIDE RECORDS SUMMARY | 2024-03-27 08:59 | XMS_ITS | Encounter Summary ---
Author Organization [facility] Address [address] [place] [address] Phone Care Team Providers Care Clinical Care Coordinator Name Role Phone Unavailable Primary Care [...]
--- OUTSIDE RECORDS SUMMARY | 2024-03-27 08:59 | XMS_ITS | Encounter Summary ---
Author Organization [facility] Address [address] [place] [address] Phone Care Team Providers Care Children'S Literature Professor Name Role Phone Unavailable Primary Care Provider [...]
--- OUTSIDE RECORDS SUMMARY | 2024-03-27 08:59 | XMS_ITS | Encounter Summary ---
Author Organization [facility] Address [address] [facility] [place] [address] Phone Care Team Providers Care Chief Specialist Leed Name Role Phone Unavailable Primary Care Provider Unavailabl e Encounter Details Date Type Department Care Team (Latest Contact Info) Description 01/11/2024 10:01 AM CDT - 01/11/2024 11:59 PM CDT Hospital En[place] [facility] [place] [address] [place] [address] Nikolai Martinez MD [address] [facility] [address] [place], [place] [address] Rifkwqd, Dve - 93260 Discharge Disposition: Discharged to home or self [...] hesitate to call the Hyperbaric Department at [phone] during clinic hours or page prison psychiatrist staff with any updates, questions, or concerns. Mayuri Hinojosa APRN, CNP, 01/11/2024 12:21 PM Continuous attending physician supervision was provided throughout the hyperbaric oxygen treatment. I have reviewed and agree with the treatment note created by Nurse Practitioner: Mayuri Hinojosa APRN, COUNTERINTELLIGENCE SPECIALIST. documented in this encounter Plan of Treatment [...] us Nikolai Martinez MD LABORATORY Final Result [facility] POINT OF CARE [address] [place] [address], documented in this encounter Visit Diagnoses Diagnosis Soft tissue infection- Primary Unspecified infectious and parasitic diseases Other acute osteomyelitis of left foot (CMS/HHS) documented in this encounter Additional Health Concerns Infection Onset Date Last Indicated Resolved Time 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
--- OUTSIDE RECORDS SUMMARY | 2024-03-27 08:59 | XMS_ITS | Referral Summary ---
Author Organization [facility] Address [address] [place] [address] Phone Care Team Providers Care Oracle Database Administrator Name Role Phone Unavailable Primary Care Provider Unavailabl e Source Comments [facility] [employer] is fully rolled [facility] on [facility] 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[facility]) Discharge Disposition: Discharged to home or self care 01/19/2024 Travel 01/19/2024 10:30 AM CDT - 01/19/2024 11:59 PM CDT Hospital Encounter [facility] [address] [place] [address] Nikolai Martinez MD Routine, Hbo - Discharge Disposition: Discharged to home or self care 01/18/2024 Travel 01/18/2024 10:06 AM CDT - 01/18/2024 11:59 PM CDT Hospital Encounter [facility] [address] [place] [phone] David Cortes MD Routine, Hbo - Discharge Disposition: Discharged to home or self care 01/17/2024 Travel 01/17/2024 9:42 AM CDT - 01/17/2024 11:59 PM CDT Hospital Encounter [facility] [address] [place] [address] Douglas Morris II, MD Routine, Hbo - Discharge Disposition: Discharged to home or self care 01/12/2024 Travel 01/12/2024 9:53 AM CDT - 01/12/2024 11:59 PM CDT Hospital Encounter [facility] [address] [place] [address] David Cortes MD Routine, Hbo - Discharge Disposition: Discharged to home or self care 01/11/2024 Travel 01/11/2024 10:01 AM CDT - 01/11/2024 11:59 PM CDT Hospital Encounter [facility] [address] [place] [address] Nikolai Martinez MD Routine, Hbo - Discharge Disposition: Discharged to home or self care 01/07/2024 Travel 01/07/2024 10:06 AM CDT - 01/07/2024 11:59 PM CDT Hospital Encounter [facility] [address] [place] [address] Maggy Horan MD Routine, Hbo - Discharge Disposition: Discharged to home or self care 01/06/2024 Travel 01/06/2024 9:40 AM CDT - 01/06/2024 11:59 PM CDT Hospital Encounter [facility] [address] [place] [address] David Cortes MD Discharge Disposition: Discharged to home or self care 01/06/2024 9:50 AM CDT - 01/06/2024 11:59 PM CDT Hospital Encounter [facility] [address] [place] [address] David Cortes MD Routine, Hbo - Discharge Disposition: Discharged to home or self care 01/05/2024 Orders Only [facility] [address] [place] [address] Talita Patel MD 01/05/2024 Travel 01/05/2024 9:32 AM CDT - 01/05/2024 11:59 PM CDT Hospital Encounter [facility] [address] [place] [address] David Cortes MD Routine, Hbo - Discharge Disposition: Discharged to home or self care 01/04/2024 Travel 01/04/2024 10:16 AM CDT - 01/04/2024 11:59 PM CDT Hospital Encounter [facility] [address] [address] Douglas Morris II, MD Routine, Hbo - Discharge Disposition: Discharged to home or self care 01/03/2024 Travel 01/03/2024 9:33 AM CDT - 01/03/2024 11:59 PM CDT Hospital Encounter [facility] [address] [place] [address] Narcisa Sanford MD Routine, Hbo - Discharge Disposition: Discharged to home or self care 12/31/2023 Travel 12/31/2023 9:51 AM CDT - 12/31/2023 11:59 PM CDT Hospital Encounter [facility] [address] [place] [address] Douglas Morris II, MD Routine, Hbo - Discharge Disposition: Discharged to home or self care 12/31/2023 1:00 PM CDT Office [facility] [address] [address] Afshan Sims DPM S/P foot surgery, right (Primary Dx) Discharge Disposition: Discharged to home or self care 12/30/2023 Travel 12/30/2023 9:49 AM CDT - 12/30/2023 11:59 PM CDT Hospital Encounter [facility] [address] [place] [address] David Cortes MD Routine, Hbo - Discharge Disposition: Discharged to home or self care 12/29/2023 Travel 12/29/2023 9:38 AM CDT - 12/29/2023 11:59 PM CDT Hospital Encounter [facility] [address] [place] [address] Nikolai Martinez MD Routine, Hbo - Discharge Disposition: Discharged to home or self care 12/28/2023 Telephone [facility] [address] [place] [address] Dayanna Rodriguez RN Care Coordination (Called to discuss outpatient HBOT schedule) 12/27/2023 Travel 12/27/2023 9:00 AM CDT Nurse Only [facility] [address] [address] Afshan Sims DPM Discharge Disposition: Discharged to [...] needed for Constipation. Indications: Acid Indigestion 11/24/19 Active paliperidone palmitate ER (INVEGA SUSTENNA) 156 [...] POC GLUCOSE Routine 12/29/2023 10:07 AM CDT PC LAB GLYCOSYLATED HGB Routine 12/08/2023 4:47 PM CDT PC HIV-1 AG W/HIV-1 & HIV-2 AB Timed 11/15/2023 7:39 AM CDT from Last 3 Months or Most Recently Relevant to Health Maintenance Results * (ABNORMAL) POC GLUCOSE (01/19/2024 12:22 PM CDT) Only the most recent of15 resultswithin the time period is included. POC Glucose 323(H) 70 - 100 mg/dL [facility] - POINT OF CARE Blood 01/19/2024 12:2 2 PM CDT Nikolai Martinez MD LABORATORY Final Result [facility] - POINT OF CARE [address] [place] [address], * HBO ANGIOGRAPHY EXTREMITY UNILATERAL (01/06/2024 9:40 [...] Afshan Shafer PA-C LABORATORY Final Res ult [facility] [address] [address] * HIV COMBO (11/15/2023 7:39 AM CDT) HIV Antigen-Antibody Nonreactive Nonreactive [facility] Comment:Performance characte ristics have not been established with this test on patients less than 2 years of age. Blood 11/15/2023 7:39 AM CDT 11/15/2023 7:58 AM CDT us Zac Jackson MD LABORATORY Final Result [facility] [address] [place] [address] from Last 3 Months or Most Recently Relevant to Health Maintenance Additional Health Concerns Infection Onset Date Last Indicated MRSA 11/17/2023 12/08/2023 Insurance [facility]ly [facility] 3rd Floor Room [address] [place], [place] [id number] MEDICAID [facility] Advance Directives For more information, please contact: [phone] * Full Code (Latest Code Status on [...]
--- OUTSIDE RECORDS SUMMARY | 2024-03-27 08:59 | XMS_ITS | Encounter Summary ---
Author Organization [facility] Address [address] [place] [address] Phone Care Team Providers Care Software Configuration Manager Name Role Phone Unavailable Primary Care [...]
--- OUTSIDE RECORDS SUMMARY | 2024-03-27 08:59 | XMS_ITS | Encounter Summary ---
Author Organization [facility] Address [address] [place] [address] Phone Care Team Providers Care Unit Supervisor Name Role Phone Unavailable Primary Care Provider Unavailabl e Encounter Details Date Type Department Care Team (Late st Contact Info) Description 01/05/2024 9:32 AM CDT - 01/05/2024 11:59 PM CDT Hospital Encounter [facility] [address] [facility] [address] [place], [place] [address] SophiaDavid ward MD 701 [facility] [address] [place], [place] [phone] Routine, Hbo - [id number] Discharge Disposition: Discharged to home or self [...] hesitate to call the Hyperbaric Department at [phone] during clinic hours or page pulmonology technician staff with any updates, questions, or [...] POC Glucose 328(H) 70 - 100 mg/dL [facility] - POINT OF CARE Blood 01/05/2024 9:54 AM CDT us David Cortes MD LABORATORY Final Res ult [facility] - POINT OF CARE [address] [place] [address], [place] documented in this encounter Visit Diagnoses Diagnosis Soft tissue infection- Primary Unspecified infectious and parasitic diseases Other acute osteomyelitis of left foot ([facility]) documented in this encounter Additional Health Concerns Infection Onset Date Last Indicated Resolved Time 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
--- OUTSIDE RECORDS SUMMARY | 2024-03-27 09:00 | XMS_ITS | Encounter Summary ---
Author Organization [facility] Address [address] [place] [address] Phone Care Team Providers Care Tilt Tray Driver Name Role Phone Unavailable Primary Care Provider Unavailabl e Encounter Details Date Type Department Care Team (Latest Contact Info) Description 01/04/2024 10:16 AM CDT - 01/04/2024 11:59 PM CDT Hospital Encounter [facility] 701 [facility] 9[address] [place] [address] Masters, Douglas Osuna II, MD 701 [facility] [address] [place], [place] [address] Routine, Cib - [id number] Discharge Disposition: Discharged to home or self [...] hesitate to call the Hyperbaric Department at [phone] during clinic hours or page salesperson burial needs staff with any updates, questions, or concerns. [...] POC Glucose 340(H) 70 - 100 mg/dL [facility] - POINT OF CARE Blood 01/04/2024 10:0 3 AM CDT us Douglas Morris II, MD LABORATORY Final Re sult [facility] - POINT OF CARE [address] [place] [address], [place] documented in this encounter Visit Diagnoses Diagnosis Soft tissue infection- Primary Unspecified infectious and parasitic diseases Other acute osteomyelitis of left foot ([facility]) documented in this encounter Additional Health Concerns Infection Onset Date Last Indicated Resolved Time 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
--- OUTSIDE RECORDS SUMMARY | 2024-03-27 09:00 | XMS_ITS | Encounter Summary ---
Author Organization [facility] Address [address] [place] [address] Phone Care Team Providers Care K 12 Principal Name Role Phone Unavailable Primary Care Provider [...]
--- OUTSIDE RECORDS SUMMARY | 2024-03-27 09:00 | XMS_ITS | Encounter Summary ---
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 [facility] PRACTICE PROVIDER SURGERY CLINIC VISIT NOTE - JUNK DEALER Stephanie Low : 1980 Sex: male Plan : Continue wet-to-dry dressing changes with Vashe to the groin incision. With the each dressing change; make sure the groin area is clean and dry. Utilize Interdry to keep abdominal fluids and groin dry Okay for patient to discharge Home [facility] if help is available to change the [...] Jose Castelan APRN, CNP 12/24/2023 13:40 [facility] Department of Surgery Pager: via telemediq I have spent 30 minutes with this patient today in which greater than 50% of this time was spent incounseling/coordination of care regarding in patient care, review of imaging/labs, chart review andconsultant recommendations. Dictation Disclaimer: Some notes are completed with voice-recognition dictation software. Errors are generally corrected in real time. Please contact me via [facility] [employer] staff message if you note any errors [...]
--- OUTSIDE RECORDS SUMMARY | 2024-03-27 09:00 | XMS_ITS | Encounter Summary ---
Author Organization [facility] Address [address] [place] [address] Phone Care Team Providers Care Roof Truss Detailer Name Role Phone Unavailable Primary Care [...]
--- OUTSIDE RECORDS SUMMARY | 2024-03-27 09:00 | XMS_ITS | Encounter Summary ---
Author Organization [facility] Address [address] [place] [address] Phone Care Team Providers Care Patrol Guard Name Role Phone Unavailable Primary Care Provider Unavailabl e Encounter Details Date Type Department Care Team (Latest Contact Info) Description 12/29/2023 9:38 AM CDT - 12/29/2023 11:59 PM CDT Hospital Encounter [facility] [address] [place] [address] Nikolai Martinez MD 701 [facility] [place], [place] [address] Asshvwe, Ksg - 96816 Discharge Disposition: Discharged to home or self [...] hesitate to call the Hyperbaric Department at [phone] during clinic hours or page manager front staff with any updates, questions, or concerns. [...] POC Glucose 323(H) 70 - 100 mg/dL [facility] - POINT OF CARE Blood 12/29/2023 10:0 7 AM CDT us Nikolai Martinez MD LABORATORY Final Result [facility] - POINT OF CARE [address] [place] [address], [place] documented in this encounter Visit Diagnoses [...]
--- OUTSIDE RECORDS SUMMARY | 2024-03-27 09:00 | XMS_ITS | Encounter Summary ---
Author Organization [facility] Address [address] [place] [address] Phone Care Team Providers Care Embedded Systems Designer Name Role Phone Unavailable Primary Care [...]
--- OUTSIDE RECORDS SUMMARY | 2024-03-27 09:00 | XMS_ITS | Encounter Summary ---
Author Organization [facility] Address [address] [place] [address] Phone Care Team Providers Care Power Systems Engineer Name Role Phone Unavailable Primary Care Provider Unavailabl e Reason for Visit * Reason Onset Date Comments Care Coordination 12/28/2023 Called to disc us outpatient HBOT schedule Encounter Details Date Type Department Care Team (Late st Contact Info) Description 12/28/2023 Telephone [facility] [address] [address] Dayanna Rodriguez RN [address] [place] [address] Care Coordination (Called to discuss outpatient HBOT [...] schedule was printedand faxed to Vannesa at [phone]. She reported that she may need x 2 days to get transport set up. documented in this encounter Plan of Treatment Not on file documented as of this encounter Visit Diagnoses Not on filedocumented in this encounter Additional Health Concerns Infection Onset Date Last Indicated Resolved Time 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
--- OUTSIDE RECORDS SUMMARY | 2024-03-27 09:00 | XMS_ITS | Encounter Summary ---
Author Organization [facility] Address [address] [place] [address] Phone Care Team Providers Care Research Consultant Name Role Phone Unavailable Primary Care Provider Unavailabl e Reason for Visit * Reason Comments Wound Encounter Details Date Type Department Care Team (Late st Contact Info) Description 12/27/2023 9:00 AM CDT Nurse Only [facility] [address] [address] Afshan Sims, DPMorelia [address] [phone] Discharge Disposition: Discharged to home or self [...] on Original Admission: Yes Location:Groin Site Assessment Granular;[place] Rain-Wound Assessment Intact Tunneling or undermining present? [...]
--- OUTSIDE RECORDS SUMMARY | 2024-03-27 09:00 | XMS_ITS | Encounter Summary ---
Author Organization [facility] Address [address] [place] [address] Phone Care Team Providers Care Sign Maker Name Role Phone Unavailable Primary Care Provider Unavailabl e Reason for Visit * Reason Comments Post Op Encounter Details Date Type Department Care Team (Late st Contact Info) Description 12/31/2023 1:00 PM CDT Office Visit [facility] [address] [address] Afshan Sims, DPMorelia [address] [phone] S/P foot surgery, right (Primary Dx) Discharge [...] up 3 weeks at the front end loader operator - Please schedule an appointment with orthotics at the front end loader operator for diabetic shoes and inserts - A [...] of TBI --Patient is own [facility] Clinic plan: -Discussed postoperative course and [...]
--- OUTSIDE RECORDS SUMMARY | 2024-03-27 09:00 | XMS_ITS | Encounter Summary ---
Author Organization [facility] Address [address] [place] [address] Phone Care Team Providers Care Supervisor Airplane Flight Attendant Name Role Phone Unavailable Primary Care [...]
--- OUTSIDE RECORDS SUMMARY | 2024-03-27 09:00 | XMS_ITS | Encounter Summary ---
Author Organization [facility] Address [address] [place] [address] Phone Care Team Providers Care Combat Systems Operator Name Role Phone Unavailable Primary Care [...]
--- OUTSIDE RECORDS SUMMARY | 2024-03-27 09:00 | XMS_ITS | Encounter Summary ---
Author Organization [facility] Address [address] [place] [address] Phone Care Team Providers Care Research And Development Manager Name Role Phone Unavailable Primary [...]
--- OUTSIDE RECORDS SUMMARY | 2024-03-27 09:00 | XMS_ITS | Encounter Summary ---
Author Organization [facility] Address [address] [place] [address] Phone Care Team Providers Care Recyclable Materials Collector Name Role Phone Unavailable Primary Care Provider [...]
--- OUTSIDE RECORDS SUMMARY | 2024-03-27 09:00 | XMS_ITS | Encounter Summary ---
Author Organization [facility] Address [address] [place] [address] Phone Care Team Providers Care Mental Hygiene Consultant Name Role Phone Unavailable Primary Care Provider Unavailabl e Encounter Details Date Type Department Care Team (Late st Contact Info) Description 12/30/2023 9:49 AM CDT - 12/30/2023 11:59 PM CDT Hospital Encounter [facility] [address] [facility] [address] [place], [place] [address] SophiaDavid ward MD 701 [facility] [address] [place], [place] [address] Routine, Hbo - [phone] Discharge Disposition: Discharged to home or self [...] hesitate to call the Hyperbaric Department at [phone] during clinic hours or page content administrator staff with any updates, questions, or concerns. [...] POC Glucose 352(H) 70 - 100 mg/dL [facility] - POINT OF CARE Blood 12/30/2023 9:54 AM CDT us David Cortes MD LABORATORY Final Res ult [facility] - POINT OF CARE [address] [place] [address], documented in this encounter Visit Diagnoses Diagnosis [...]
--- OUTSIDE RECORDS SUMMARY | 2024-03-27 09:00 | XMS_ITS | Encounter Summary ---
Author Organization [facility] Address [address] [place] [address] Phone Care Team Providers Care Caisson Worker Name Role Phone Unavailable Primary Care [...] Expiration Date V isits Requested Visits Authorized [id number] Auth Not Needed 12/20/2023 03/09/2024 30 30 Encounter Details Date Type Department Care Team (Latest Contact Info) Description 12/20/2023 9:34 AM CDT - 12/20/2023 11:59 PM CDT Hospital Encounter [facility] 701 [facility] [address] [place], [place] [phone] Shawn Vines MD 701 [facility] [address] [place], [place] [address] Routine, Hbo - [phone] Discharge Disposition: Discharged to home or self [...] hesitate to call the Hyperbaric Department at [phone] during clinic hours or page svp monetization staff with any updates, questions, or concerns. [...] POC Glucose 265(H) 70 - 100 mg/dL [facility] POINT OF CARE Blood 12/20/2023 12:2 8 PM CDT Shawn Vines MD LABORATORY Fi nal Result Performing Organization Address [facility] Co de Phone Number [facility] [address] [place] [address], * (ABNORMAL) POC GLUCOSE (12/20/2023 10:06 AM CDT) POC Glucose 284(H) 70 - 100 mg/dL [facility] POINT OF [facility] Blood 12/20/2023 10:0 6 AM CDT Shawn Vines MD LABORATORY Fi nal Result Performing Organization Address [facility] de Phone Number [facility] [address] [place] [address], documented in this encounter Visit Diagnoses Diagnosis [...]
--- OUTSIDE RECORDS SUMMARY | 2024-03-27 09:00 | XMS_ITS | Encounter Summary ---
Author Organization [facility] Address [address] [place] [address] Phone Care Team Providers Care Format Proofreader Name Role Phone Unavailable Primary Care Provider [...]
--- OUTSIDE RECORDS SUMMARY | 2024-03-27 09:00 | XMS_ITS | Encounter Summary ---
Author Organization [facility] Address 1 [facility] [place] [address] Phone Care Team Providers Care Shingler Name Role Phone Unavailable Primary Care Provider Unavailabl e Encounter Details Date Type Department Care Team (Latest Contact Info) Description 01/03/2024 9:33 AM CDT - 01/03/2024 11:59 PM CDT Hospital Encounter [facility] [address] [facility] 9[address] [place] [address] Narcisa Sanford MD 701 [place], [place] [phone] [facility], Tlc - [address] Discharge Disposition: Discharged to home or self [...] hesitate to call the Hyperbaric Department at [phone] during clinic hours or page outdoor education teacher staff with any updates, questions, or [...] POC Glucose 305(H) 70 - 100 mg/dL [facility] - POINT OF CARE Blood 01/03/2024 9:50 AM CDT us Narcisa Sanford MD LABORATORY Final Result [facility] - POINT OF CARE [address] [facility] [place] [address], [place] documented in this encounter Visit Diagnoses [...]
--- OUTSIDE RECORDS SUMMARY | 2024-03-27 09:00 | XMS_ITS | Encounter Summary ---
Author Organization [facility] Address [address] [place] [address] Phone Care Team Providers Care Surveyor Oil Well Directional Name Role Phone Unavailable Primary Care Provider [...] ATTN&SUPVJ HYPRBARIC OXYGEN TX/SESSION Routine, Hbo - [id number] Referral ID Status Reason Start Date Expiration Date V isits Requested Visits Authorized [id number] Auth Not Needed 12/20/2023 03/09/2024 30 30 Encounter Details Date Type Department Care Team (Latest Contact Info) Description 12/22/2023 9:43 AM CDT - 12/22/2023 11:59 PM CDT Hospital Encounter [facility] Hyperbaric 701 [facility] 980 [place], [place] [address] Narcisa Sanford MD [address] [place], [place] 8[address] Routine, Hbo - [id number] Discharge Disposition: Discharged to home or self [...] hesitate to call the Hyperbaric Department at [phone] during clinic hours or page operations vice president staff with any updates, questions, or concerns. [...] us Nikolai Martinez MD LABORATORY Final Result [facility] - POINT OF CARE [address] [place] [address], [place] documented in this encounter Visit Diagnoses Diagnosis Soft tissue infection- Primary Unspecified infectious and parasitic diseases Other acute osteomyelitis of left foot ([facility]) documented in this encounter Additional Health Concerns Infection Onset Date Last Indicated Resolved Time 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
--- OUTSIDE RECORDS SUMMARY | 2024-03-27 09:00 | XMS_ITS | Encounter Summary ---
Author Organization [facility] Address [address] [place] [address] Phone Care Team Providers Care Outside Industrial Sales Representative Name Role Phone Unavailable Primary Care Provider Unavailabl e Encounter Details Date Type Department Care Team (Latest Contact Info) Description 12/31/2023 9:51 AM CDT - 12/31/2023 11:59 PM CDT Hospital Encounter [facility] Hyperbaric 701 [facility] 980 [place] [address] Masters, Douglas Osuna II, MD 701 [facility] [address] [place], [place] [address] Routine, Fzt - [id number] Discharge Disposition: Discharged to home or self [...] hesitate to call the Hyperbaric Department at [phone] during clinic hours or page cement contractor staff with any updates, questions, or concerns. Cosigned by Douglas Morris II, MD at 12/31/2023 1:13 PM CDT Associated attestation - Douglas Morris [...] POC Glucose 295(H) 70 - 100 mg/dL [facility] - POINT OF CARE Blood 12/31/2023 9:57 AM CDT Douglas Morris II, MD LABORATORY Final Re sult [facility] - POINT OF CARE [address] [place] [address], documented in this encounter Visit Diagnoses Diagnosis [...]
--- OUTSIDE RECORDS SUMMARY | 2024-03-27 09:00 | XMS_ITS | Encounter Summary ---
Author Organization [facility] Address [address] [place] [address] Phone Care Team Providers Care Flipping Machine Operator Name Role Phone Unavailable Primary [...] FULL BODY CHAMBER PER 30 MINUTE INTERVAL NM PHYS/QHP ATTN&SUPVJ HYPRBARIC OXYGEN TX/SESSION Routine, Hbo - [id number] Referral ID Status Reason Start Date Expiration Date V isits Requested Visits Authorized [id number] Auth Not Needed 12/20/2023 03/09/2024 30 30 Encounter Details Date Type Department Care Team (Latest Contact Info) Description 12/23/2023 9:33 AM CDT - 12/23/2023 11:59 PM CDT Hospital Encounter [facility] [place] [address] [address] Nikolai Martinez MD 701 [place], [place] [address] Routine, Hbo - [id number] Discharge Disposition: Discharged to home or self [...] hesitate to call the Hyperbaric Department at [phone] during clinic hours or page telephone quotation clerk staff with any updates, questions, or concerns. Continuous attending physician supervision was provided throughout the hyperbaric oxygen treatment. I have reviewed and agree with the treatment note created by Nurse Practitioner: Mayuri Hinojosa APRN, HEALTH EDUCATION COORDINATOR. documented in this encounter Plan of Treatment Not on file documented as of this encounter Procedures Procedure Name Priority Date/Time Associated Diagnosis Comments POC GLUCOSE Routine 12/23/2023 10:27 AM CDT documented in this encounter Results * (ABNORMAL) POC GLUCOSE (12/23/2023 10:27 AM CDT) POC Glucose 315(H) 70 - 100 mg/dL [facility] - POINT OF CARE Blood 12/23/2023 10:2 7 AM CDT us Nikolai Martinez MD LABORATORY Final Result [facility] [place] - POINT OF CARE [address] [place] [address], documented in this encounter Visit Diagnoses Diagnosis Soft tissue infection- Primary Unspecified infectious and parasitic diseases Other acute osteomyelitis of left foot ([facility]) documented in this encounter Additional Health Concerns Infection Onset Date Last Indicated Resolved Time 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
--- OUTSIDE RECORDS SUMMARY | 2024-03-27 09:00 | XMS_ITS | Encounter Summary ---
Author Organization [facility] Address [address] [place] [address] Phone Care Team Providers Care Surgical Services Asst Name Role Phone Unavailable Primary Care [...]
--- OUTSIDE RECORDS SUMMARY | 2024-03-27 09:01 | XMS_ITS | Encounter Summary ---
Author Organization [facility] Address [address] [place] [address] Phone Care Team Providers Care Fusion Operator Name Role Phone Unavailable Primary Care [...]
--- OUTSIDE RECORDS SUMMARY | 2024-03-27 09:01 | XMS_ITS | Encounter Summary ---
Author Organization [facility] Address [address] [place] [address] Phone Care Team Providers Care Programmer Name Role Phone Unavailable Primary Care [...]
--- OUTSIDE RECORDS SUMMARY | 2024-03-27 09:01 | XMS_ITS | Encounter Summary ---
Author Organization [facility] Address [address] [place] [address] Phone Care Team Providers Care Cash Clerk Name Role Phone Unavailable Primary Care [...]
--- OUTSIDE RECORDS SUMMARY | 2024-03-27 09:01 | XMS_ITS | Clinical Summary ---
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 1 Each 07/24/19 23 Active durable medical equipment (DME)Indications:F ollow-up examination after orthopedic surgery,Osteomyeli tis of right foot, unspecified type (HC),Diabetic ulcer of right midfoot associated with type 2 diabetes mellitus, with necrosis of muscle (HC) SQUARED TOE POST OP SHOE, LARGE, REF: [phone] 1 Each 10/15/19 23 Active ondansetron (ZOFRAN [...] SQUARED TOE POST OP SHOE, LARGE, REF: [phone] 1 Each 12/31/19 23 Active acetaminophen (TYLENOL [...] doses. 75 Each 10/27/19 24 Active transmitter (Emcore G6 Transmitter) for continuous blood glucose monitor [...] Department Care Team Description 02/29/2024 Orders Only [facility] Scanner 1 scan: (1-Ord) [facility], 02/29/2024 02/27/2024 Refill [facility] [address] [place] [address] Jose R Foster MD Refill Request (Chlorhexidine) 02/22/2024 Refill [facility] [address] [place] [address] Jose R Foster MD Refill Request (Acetaminophen, Stimulant Laxative Plus) 02/22/2024 Refill [facility] [address] [place] [address] Jose R Foster MD Refill Request (Amlodipine, Cyclobenzaprine) 02/02/2024 3:20 PM CDT Office Visit [facility] [address] [place] [address] Jose R Foster MD Diabetes; Hospital F/U [place], left foot[place] Wound Check (groin) 02/02/2024 Travel 01/25/2024 1:30 PM CDT Office Visit [facility] [address] [place] [address] Trey Kim MD Follow Up; Medication Management (feeling, good. I'm sad, because my taxi tickets didn't come in yet. And my back is really sore) 01/25/2024 Travel 01/24/2024 Refill [facility] [address] [place] [address] Jose R Foster MD Refill Request (Dexcom [...] st Contact Info) Description 03/29/2024 2:30 PM FILTER SCREEN CLEANER Office Visit [facility] [address] [place] [address] Vini Hayden DPM 1400 [place] [address] 05/11/2024 10:50 AM FILTER SCREEN CLEANER Office Visit [facility] [address] [place] [address] Jose R Foster MD [address] [place] [address] Health Maintenance Due Date Last Done Comments [...] A1C 10.0(H) <6.0 % OF TOTAL HGB [facility] Comment: Any point of care results exhibiting inconsistency with the patient's clinical status should be repeated using a different testing method. Blood BLOOD SPECIMEN / Unknown 02/02/2024 3:14 PM CDT 02/02/2024 3:14 PM CDT Jose R Foster MD CHEMISTRY [facility] [address] [place] [address], [facility] [address] [place] [address] * (ABNORMAL) CBC WITH AUTO DIFFERENTIAL (02/02/2024 [...] CDT Jose R Foster MD HEMATOLOGY [facility] [address] [place] [address], [place] [phone] [facility] [address] [place] [address] * (ABNORMAL) BASIC METABOLIC PANEL (02/02/2024 3:13 PM CDT) GLUCOSE 326(H) 65 - 99 mg/dL [facility] Comment: ? Fasting reference interval [...] CALCIUM 9.1 8.6 - 10.3 mg/dL [facility] Blood BLOOD SPECIMEN / Unknown 02/02/2024 3:13 PM CDT 02/02/2024 3:13 PM CDT Jose R Foster MD CHEMISTRY [facility] [address] [place] [address], [facility] [address] [place] [address] * (ABNORMAL) LIPID PANEL W REFLEX MEASURED LDL (07/27/2023 2:22 PM CDT) CHOLESTEROL,TOTAL 190 100 - 199 mg/dL 07/27/2023 9:24 PM CDT [facility] Comment: Cholesterol, Total Reference Ranges Desirable <200 mg/dL Borderline 200-239 mg/dL High >=240 mg/dL TRIGLYCERIDES 340(H) <150 mg/dL 07/27/2023 9:24 PM CDT [facility] HDL CHOLESTEROL 45 >40 mg/dL 9:[address] [facility] NON-HDL CHOLESTEROL 145(H) <145 mg/dl 07/27/2023 9:24 PM CDT [facility] CHOL/HDL RATIO 4.22 <4.50 07/27/2023 9:[address] [facility] LDL CHOLESTEROL 77 <=130 mg/dL 07/27/2023 9:24 PM CDT [facility] VLDL CHOLESTEROL 68(H) <=30 mg/dL 07/27/2023 9:24 PM CDT [facility] PROVIDER ORDERED STATUS RANDOM 07/27/2023 9:24 PM CDT [facility] Blood BLOOD SPECIMEN / Unknown Venipuncture / Unknown 07/27/2023 2:22 PM CDT 07/27/2023 2:25 PM CDT Trey Kim MD CHEMISTRY [facility] [address] [place] [address], from Last 3 Months or Most Recently [...] 8:06 AM 11/08/2018 2:17 PM Care Teams Health Social Work Professor Relationship Specialty Start Date End Date VotelJose R MD [address] [place] [address] PCP - General Family Practice 07/23/22 Nghia Arauz MD Family Practice 12/25/10
--- OUTSIDE RECORDS SUMMARY | 2024-03-27 09:01 | XMS_ITS | Encounter Summary ---
Author Organization [facility] Address [address] [place] [address] Phone Care Team Providers Care Mason Liner Name Role Phone Unavailable Primary Care [...]
== END 2024-03-27 08:55 | disposition home or self-care (01) ==
LOC: WOUND 08:54
PROVIDERS: PCP Family Medicine; Visit Provider Nurse Practitioner Family
DX: E11.622 Type 2 diabetes mellitus with other skin ulcer (principal); L98.412 Non-pressure chronic ulcer of buttock with fat layer exposed; Z79.4 Long term (current) use of insulin; Z79.84 Long term (current) use of oral hypoglycemic drugs
CPT/HCPCS: 97597

== ENCOUNTER 2024-04-03 08:54 | Outpatient (CLI) | payer MEDICARE, MEDICAID, SELFPAY ==
--- OUTSIDE RECORDS SUMMARY | 2024-04-03 08:57 | XMS_ITS | Encounter Summary ---
Author Organization [facility] Address [address] [place] [address] Phone Care Team Providers Care It Help Desk Analyst Name Role Phone Unavailable Primary Care Provider Unavailabl e Encounter Details Date Type Department Care Team (Late st Contact Info) Description 01/20/2024 9:54 AM CDT - 01/20/2024 11:59 PM CDT Hospital En[place] [facility] [place] [address] [facility] [address] [place], [place] [address] SophiaDavid ward MD 701 [facility] 825 [place], [place] [address] Routine, Hbo - [id number] Discharge Disposition: Discharged to home or self [...] 93 01/20/2024 9:00 AM CDT Temperature 36.2 C (97.2 F) 01/20/2024 9:00 AM CDT Respiratory Rate 15 01/20/2024 9:00 AM CDT [...] hesitate to call the Hyperbaric Department at [phone] during clinic hours or page health care liaison staff with any updates, questions, or concerns. [...] Cortes MD - 01/20/2024 10:30 AM CDT [facility] [place]PERBAR[facility] MEDICINE TREATMENT SUMMARY Consulting physician: Dr. [...] urged continued close follow up with his Supervisor Knitting for local wound care and monitoring. We noted our availability should future concern of complicated wound develop or as needed surrounding and in support of surgical interventions. Please do not hesitate to call the Hyperbaric Department at [phone] during clinic hours or page health care liaison staff with any updates, questions, or concerns. Kit Mcconnell MD Hyperbaric Medicine Fellow I reviewed, edited and agree with the treatment summary. David Cortes MD, 01/20/2024 2:51 PM documented in this encounter Plan of Treatment Not on file documented as of this encounter Visit Diagnoses Diagnosis Soft tissue infection- Primary Unspecified infectious and parasitic diseases Other acute osteomyelitis of left foot ([facility]) documented in this encounter Additional Health Concerns Infection Onset Date Last Indicated Resolved Time 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
--- OUTSIDE RECORDS SUMMARY | 2024-04-03 08:57 | XMS_ITS | Referral Summary ---
Author Organization [employer] Address [address] [place] [address] Phone Care Team Providers Care Print Shop Stenographer Name Role Phone Unavailable Primary Care Provider Unavailabl e Source Comments [employer] [facility] 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[facility]) Discharge Disposition: Discharged to home or self care 01/19/2024 Travel 01/19/2024 10:30 AM CDT - 01/19/2024 11:59 PM CDT Hospital Encounter [facility] Hyperbaric [address] [place] [address] Nikolai Martinez MD Routine, Hbo - Discharge Disposition: Discharged to home or self care 01/18/2024 Travel 01/18/2024 10:06 AM CDT - 01/18/2024 11:59 PM CDT Hospital Encounter [facility] Hyperbaric [address] [place] [address] David Cortes MD Routine, Hbo - Discharge Disposition: Discharged to home or self care 01/17/2024 Travel 01/17/2024 9:42 AM CDT - 01/17/2024 11:59 PM CDT Hospital Encounter [facility] Hyperbaric [address] [place] [address] Douglas Morris II, MD Routine, Hbo - Discharge Disposition: Discharged to home or self care 01/12/2024 Travel 01/12/2024 9:53 AM CDT - 01/12/2024 11:59 PM CDT Hospital Encounter [facility] Hyperbaric [address] [place] [address] David Cortes MD Routine, Hbo - Discharge Disposition: Discharged to home or self care 01/11/2024 Travel 01/11/2024 10:01 AM CDT - 01/11/2024 11:59 PM CDT Hospital Encounter [facility] Hyperbaric [address] [place] [address] Nikolai Martinez MD Routine, Hbo - Discharge Disposition: Discharged to home or self care 01/07/2024 Travel 01/07/2024 10:06 AM CDT - 01/07/2024 11:59 PM CDT Hospital Encounter [facility] Hyperbaric [address] [place] [address] Maggy Horan MD Routine, Hbo - Discharge Disposition: Discharged to home or self care 01/06/2024 Travel 01/06/2024 9:40 AM CDT - 01/06/2024 11:59 PM CDT Hospital Encounter [facility] Hyperbaric [address] [place] [address] David Cortes MD Discharge Disposition: Discharged to home or self care 01/06/2024 9:50 AM CDT - 01/06/2024 11:59 PM CDT Hospital Encounter [facility] Hyperbaric [address] [address] David Cortes MD Routine, Hbo - Discharge Disposition: Discharged to home or self care 01/05/2024 Orders Only [facility] [address] [address] Talita Patel MD 01/05/2024 Travel 01/05/2024 9:32 AM CDT - 01/05/2024 11:59 PM CDT Hospital Encounter [facility] [address] [address] David Cortes MD Routine, Hbo - Discharge Disposition: Discharged to home or self care 01/04/2024 Travel 01/04/2024 10:16 AM CDT - 01/04/2024 11:59 PM CDT Hospital Encounter [facility] [address] [place] [address] Douglas Morris II, MD Routine, Hbo - Discharge Disposition: Discharged to home or self care 01/03/2024 Travel 01/03/2024 9:33 AM CDT - 01/03/2024 11:59 PM CDT Hospital Encounter [facility] [address] [address] Narcisa Sanford MD Routine, Hbo - Discharge [...] hours as needed for Itching. Indications: Itching 07/17/20 24 Active loratadine (CLARITIN) 10 mg oral tabletIndication s:Seasonal Allergic Rhinitis Take 1 tablet (10 mg) by mouth daily. Indications: Hayfever 11/24/19 Active milk of magnesia 400 mg/5 mL [...] (17.2 mg) by mouth twice daily. 11/24/19 24 Active prazosin (MINIPRESS) 1 mg oral capsuleIndicatio ns:Hypertension Take 1 capsule (1 mg) by mouth at bedtime. Indications: High Blood Pressure Disorder 11/24/19 24 Active insulin GLARGINE (LANTUS) 100 units/mL subcutaneous injection vialIndications: Type 2 Diabetes Mellitus Inject 35 UNITS subcutaneously every twenty-four hours. Indications: Type 2 Diabetes 12/13/19 24 Active insulin LISPRO (HUMALOG KWIKPEN) 100 UNIT/ML subcutaneous Kwikpen Inject 0.1 mL (10 UNITS) subcutaneously 3 times daily before meals. 12/13/19 24 Active Active Problems Problem Noted Date Diagnosed Date Soft tissue infection 12/10/2023 Other acute osteomyelitis of left foot ([facility]) 12/07/2023 At risk for sexually transmi tted infection due to unprotected sex 11/12/2023 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[facility]) 11/10/2023 Resolved Problems Problem Noted Date Diagnosed [...] 92 01/20/2024 1:19 PM CDT Temperature 36.2 C (97.2 F) 01/20/2024 [...] POC GLUCOSE Routine 01/03/2024 9:50 AM CDT PC LAB GLYCOSYLATED HGB Routine 12/08/2023 4:47 PM CDT PC HIV-1 AG W/HIV-1 & HIV-2 AB Timed 11/15/2023 7:39 AM CDT from Last 3 Months or Most Recently Relevant to Health Maintenance Results * (ABNORMAL) POC GLUCOSE (01/19/2024 12:22 PM CDT) Only the most recent of12 resultswithin the time period is included. POC Glucose 323(H) 70 - 100 mg/dL [facility] - POINT OF CARE Blood 01/19/2024 12:2 2 PM CDT us Nikolai Martinez MD LABORATORY Final Result [facility] - POINT OF CARE [address] [place] [address], [place] * HBO ANGIOGRAPHY EXTREMITY UNILATERAL (01/06/2024 9:40 AM CDT) Anatomical Region Laterality Modality External-Camera Photography Narrative 01/06/2024 6:05 PM CDT Indication: non-healing diabetic foot ulcer and failure of post-surgical wound healing Procedure Description: A peripheral IV was started on the patient prior to the injection of the ICG dye. A still photo of the target was taken for future reference. A time-out was done before starting. We then injected the ICG dye followed by [...] intervention and broad spectrum antibiotics and Osteomyelitis. Microangiography study was requested to monitor healing [...] throughout studied areas. Previous study was reviewed. Comparison showed improved appearance, minor areas of prior hyperfluorescence in the derick-wound area have resolved. Wound is healing nicely. David Cortes MD, [...] Afshan Shafer PA-C LABORATORY Final Res ult [facility] [address] [address] * HIV COMBO (11/15/2023 7:39 AM CDT) HIV Antigen-Antibody Nonreactive Nonreactive [facility] Comment:Performance characte ristics have not been established with this test on patients less than 2 years of age. Blood 11/15/2023 7:39 AM CDT 11/15/2023 7:58 AM CDT us Zac Jackson MD LABORATORY Final Result [facility] [address] [place] [address] from Last 3 Months or Most Recently Relevant to Health Maintenance Additional Health Concerns Infection Onset Date Last Indicated MRSA 11/17/2023 12/08/2023 Insurance [facility] 3rd Floor Room [address] MEDICAID [facility] Advance Directives For more information, please contact: [phone] * Full Code (Latest Code Status on [...]
--- OUTSIDE RECORDS SUMMARY | 2024-04-03 08:57 | XMS_ITS | Encounter Summary ---
Author Organization [facility] Address [address] [place] [address] Phone Care Team Providers Care Vacuum Metalizing Supervisor Name Role Phone Unavailable Primary Care [...]
--- OUTSIDE RECORDS SUMMARY | 2024-04-03 08:57 | XMS_ITS | Encounter Summary ---
Author Organization [facility] Address [address] [place] [address] Phone Care Team Providers Care Quality Cloth Tester Name Role Phone Unavailable Primary Care Provider Unavailabl e Encounter Details Date Type Department Care Team (Late st Contact Info) Description 01/18/2024 10:06 AM CDT - 01/18/2024 11:59 PM CDT Hospital Encounter [facility] Hyperbaric [address] [place], [place] [address] SophiaDavid ward MD 701 [facility] [address] [place], [place] [address] Routine, Hbo - [id number] Discharge Disposition: Discharged to home or self [...] 100 01/18/2024 9:00 AM CDT Temperature 36 C (96.8 F) 01/18/2024 9:00 AM CDT Respiratory Rate 15 [...] hesitate to call the Hyperbaric Department at [phone] during clinic hours or page virtualization engineer staff with any updates, questions, or [...]
--- OUTSIDE RECORDS SUMMARY | 2024-04-03 08:57 | XMS_ITS | Encounter Summary ---
Author Organization [facility] Address [address] [place] [address] Phone Care Team Providers Care Radiation Therapist Name Role Phone Unavailable Primary Care Provider Unavailabl e Encounter Details Date Type Department Care Team (Latest Contact Info) Description 01/19/2024 10:30 AM CDT - 01/19/2024 11:59 PM T Hospital Encounter [facility] [address] [place] [address] Nikolai Martinez MD [address] [facility] [place], [place] [address] Txvfzse, Ayb - 73474 Discharge Disposition: Discharged to home or self [...] 86 01/19/2024 9:00 AM CDT Temperature 36.3 C (97.3 F) 01/19/2024 9:00 AM CDT Respiratory Rate 16 01/19/2024 9:00 AM CDT [...] hesitate to call the Hyperbaric Department at [phone] during clinic hours or page second floor operator staff with any updates, questions, or [...] POC Glucose 323(H) 70 - 100 mg/dL [facility] Blood 01/19/2024 12:2 2 PM CDT us Nikolai Martinez MD LABORATORY Final Result [facility] [address] [place] [address], [place] * (ABNORMAL) POC GLUCOSE (01/19/2024 9:58 AM CDT) POC Glucose 353(H) 70 - 100 mg/dL [facility] Blood 01/19/2024 9:58 AM CDT us Provider Unknown LABORATORY Final Result [facility] [address] [place] [address], documented in this encounter Visit Diagnoses Diagnosis Soft tissue infection- Primary Unspecified infectious and parasitic diseases Other acute osteomyelitis of left foot (CMS/HHS) documented in this encounter Additional Health Concerns Infection Onset Date Last Indicated Resolved Time 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
--- OUTSIDE RECORDS SUMMARY | 2024-04-03 08:57 | XMS_ITS | Encounter Summary ---
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
--- OUTSIDE RECORDS SUMMARY | 2024-04-03 08:57 | XMS_ITS | Encounter Summary ---
Author Organization [facility] Address [address] [place] [address] Phone Care Team Providers Care Professor Of Fine Art Name Role Phone Unavailable Primary Care Provider [...]
--- OUTSIDE RECORDS SUMMARY | 2024-04-03 08:57 | XMS_ITS | Encounter Summary ---
Author Organization [facility] Address [address] [place] [address] Phone Care Team Providers Care Pathology Specialist Name Role Phone Unavailable Primary Care [...]
--- OUTSIDE RECORDS SUMMARY | 2024-04-03 08:57 | XMS_ITS | Clinical Summary ---
Author Organization [facility] Address [address] [facility] [place] [address] Phone Care Team Providers Care Customer Service Representative Name Role Phone Unavailable Primary Care Provider Unavailabl e Source Comments Y[employer]ai is fully rolled out on [employer]. Last update 10/12/08.[facility] Allergies No known active allergies Medications * [...] [facility]ty [facility] [address] [address] Afshan Sims DPM S/P foot surgery, right (Primary Dx); 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[facility]) Discharge Disposition: Discharged to home or self care 01/20/2024 9:54 AM CDT - 01/20/2024 11:59 PM CDT Hospital En[place] [facility] [place] [address] [place] [address] David Cortes MD Routine, Hbo - Discharge Disposition: Discharged to home or self care 01/20/2024 Travel 01/19/2024 10:30 AM CDT - 01/19/2024 11:59 PM CDT Hospital Encounter [facility] [address] [address] Nikolai Martinez MD Routine, Hbo - Discharge Disposition: Discharged to home or self care 01/19/2024 Travel 01/18/2024 10:06 AM CDT - 01/18/2024 11:59 PM CDT Hospital Encounter [facility] [address] [place] [address] David Cortes MD Routine, Hbo - Discharge Disposition: Discharged to home or self care 01/18/2024 Travel 01/17/2024 9:42 AM CDT - 01/17/2024 11:59 PM CDT Hospital Encounter [facility] [address] [address] Douglas Morris II, MD Routine, Hbo - Discharge Disposition: Discharged to home or self care 01/17/2024 Travel 01/12/2024 9:53 AM CDT - 01/12/2024 11:59 PM CDT Hospital Encounter [facility] [address] [address] David Cortes MD Routine, Hbo - Discharge Disposition: Discharged to home or self care 01/12/2024 Travel 01/11/2024 10:01 AM CDT - 01/11/2024 11:59 PM CDT Hospital Encounter [facility] [address] [place] [address] Nikolai Martinez MD Routine, Hbo - Discharge Disposition: Discharged to home or self care 01/11/2024 Travel 01/07/2024 10:06 AM CDT - 01/07/2024 11:59 PM CDT Hospital Encounter [facility] [address] [place] [address] Maggy Horan MD Routine, Hbo - Discharge Disposition: Discharged to home or self care 01/07/2024 Travel 01/06/2024 9:50 AM CDT - 01/06/2024 11:59 PM CDT Hospital [facility] [address] [address] David Cortes MD Routine, Hbo - Discharge Disposition: Discharged to home or self care 01/06/2024 9:40 AM CDT - 01/06/2024 11:59 PM CDT Hospital Encounter [facility] [address] [address] David Cortes MD Discharge Disposition: Discharged to home or self care 01/06/2024 Travel 01/05/2024 9:32 AM CDT - 01/05/2024 11:59 PM CDT [facility] [address] [address] David Cortes MD Routine, Hbo - Discharge Disposition: Discharged to home or self care 01/05/2024 Orders Only [facility] [address] [address] Talita Patel MD 01/05/2024 Travel 01/04/2024 10:16 AM CDT - 01/04/2024 11:59 PM CDT [facility] [address] [address] Douglas Morris II, MD Routine, Hbo - Discharge Disposition: Discharged to home or self care 01/04/2024 Travel 01/03/2024 9:33 AM CDT - 01/03/2024 11:59 PM CDT [facility] [place] [address] Narcisa Sanford MD Routine, Hbo - Discharge Disposition: Discharged to home or self care 01/03/2024 Travel from Last 3 Months Immunizations Name [...] POC Glucose 323(H) 70 - 100 mg/dL [facility] Blood 01/19/2024 12:2 2 PM CDT us Nikolai Martinez MD LABORATORY Final Result [facility] [address] [place] [address], [place] * HBO ANGIOGRAPHY EXTREMITY UNILATERAL (01/06/2024 [...] Hemoglobin A1C 8.5(H) 4.0 - 5.6 % [facility] Comment: Increased risk for diabetes (prediabetes): 5.7-6.4% Diabetes >=6.5% In the absence of unequivocal hyperglycemia, diagnosis requires two abnormal test results (i.e. HbA1c and glucose) or two abnormal results from specimens collected at two different timepoints. The presence of some hemoglobin variants or red cell disorders may interfere with the measurement of hemoglobin A1c (HbA1c). Estimated Average Glucose 197(H) 68 - 114 [facility] Comment: The estimated Average Glucose (eAG) was calculated using an equation derived from a study of 507 adults with type 1, type 2, or no diabetes. Minority populations were underrepresented and children were not included. The eAG is not equivalent to a fasting glucose concentration. Blood 12/08/2023 4:47 PM CDT 12/08/2023 5:07 PM CDT Narrative [facility] - 12/08/2023 6:01 PM CDT If not done in the last 30 days. us Afshan Shafer PA-C LABORATORY Final Res ult [facility] [address] [address] * HIV COMBO (11/15/2023 7:39 AM CDT) HIV Antigen-Antibody Nonreactive Nonreactive [facility] Comment:Performance characte ristics have not been established with this test on patients less than 2 years of age. Blood 11/15/2023 7:39 AM CDT 11/15/2023 7:58 AM CDT us Zac Jackson MD LABORATORY Final Result [facility] [address] [place] [address] from Last 3 Months or Most Recently Relevant to Health Maintenance Additional Health Concerns Infection Onset Date Last Indicated MRSA 11/17/2023 12/08/2023 Insurance [place] [facility] Advance Directives For more information, please contact: [phone] * Full Code (Latest Code Status on [...]
--- OUTSIDE RECORDS SUMMARY | 2024-04-03 08:57 | XMS_ITS | Encounter Summary ---
Author Organization [facility] Address [address] [place] [address] Phone Care Team Providers Care Lpn Care Manager Name Role Phone Unavailable Primary Care [...]
--- OUTSIDE RECORDS SUMMARY | 2024-04-03 08:57 | XMS_ITS | Encounter Summary ---
Author Organization [facility] Address [address] [place] [address] Phone Care Team Providers Care Animal Breeder Name Role Phone Unavailable Primary Care Provider Unavailabl e Encounter Details Date Type Department Care Team (Latest Contact Info) Description 01/17/2024 9:42 AM CDT - 01/17/2024 11:59 PM CDT Hospital Encounter [facility] 701 [facility] 980 [place] [address] Masters, Douglas Osuna II, MD 701 [facility] 825 [place], [place] [address] Routine, Nft - [id number] Discharge Disposition: Discharged to home or self [...] 85 01/17/2024 9:00 AM CDT Temperature 36.2 C (97.2 F) 01/17/2024 9:00 AM CDT Respiratory Rate 16 01/17/2024 9:00 AM CDT [...] multiple numbers for his convenience locally in [place] for evaluation. HPI, problem list, nursing notes, [...] hesitate to call the Hyperbaric Department at [phone] during clinic hours or page hand ironer staff with any updates, questions, or [...] POC Glucose 288(H) 70 - 100 mg/dL [facility] - POINT [facility] CARE Blood 01/17/2024 12:1 9 PM CDT us Douglas Morris II, MD LABORATORY Final Re sult Performing Organization Address [facility] Co de Phone Number [facility] [address] [place] [address], [place] * (ABNORMAL) POC GLUCOSE (01/17/2024 9:59 AM CDT) POC Glucose 323(H) 70 - 100 mg/dL [facility] Blood 01/17/2024 9:59 AM CDT us Douglas Morris II, MD LABORATORY Final Re sult Performing Organization Address [facility] Phone Number [facility] [address] [place] [address], [place] documented in this encounter Visit Diagnoses [...]
--- OUTSIDE RECORDS SUMMARY | 2024-04-03 08:57 | XMS_ITS | Encounter Summary ---
Author Organization [facility] Address [address] [place] [address] Phone Care Team Providers Care Bioinformatics Research Technician Name Role Phone Unavailable Primary Care [...]
--- OUTSIDE RECORDS SUMMARY | 2024-04-03 08:58 | XMS_ITS | Encounter Summary ---
Author Organization [facility] Address [address] [place] [address] Phone Care Team Providers Care Contract Officer Name Role Phone Unavailable Primary [...]
--- OUTSIDE RECORDS SUMMARY | 2024-04-03 08:58 | XMS_ITS | Encounter Summary ---
Author Organization [facility] Address [address] [place] [address] Phone Care Team Providers Care Knot Bumper Name Role Phone Unavailable Primary Care Provider [...]
--- OUTSIDE RECORDS SUMMARY | 2024-04-03 08:58 | XMS_ITS | Encounter Summary ---
Author Organization [facility] Address [address] [facility] [address] Phone Care Team Providers Care Business Continuity Global Director Name Role Phone Unavailable Primary Care Provider Unavailabl e Encounter Details Date Type Department Care Team (Latest Contact Info) Description 01/11/2024 10:01 AM CDT - 01/11/2024 11:59 PM CDT Hospital Encounter [facility] [address] [place] [address] Nikolai Martinez MD [address] [facility] [place], [place] [address] Zlvxzjh, Zee - [id number] Discharge Disposition: Discharged to home or self [...] 93 01/11/2024 9:00 AM CDT Temperature 35.6 C (96.1 F) 01/11/2024 9:00 AM CDT Respiratory Rate 18 01/11/2024 9:00 AM CDT [...] hesitate to call the Hyperbaric Department at [phone] during clinic hours or page nutrition services aide staff with any updates, questions, or concerns. Mayuri Hinojosa APRN, CNP, 01/11/2024 12:21 PM Continuous attending physician supervision was provided throughout the hyperbaric oxygen treatment. I have reviewed and agree with the treatment note created by Nurse Practitioner: Mayuri Hinojosa APRN, STEEL CONSTRUCTION WORKER. documented in this encounter Plan of Treatment Not on file documented as of this encounter Procedures Procedure Name Priority Date/Time Associated Diagnosis Comments POC GLUCOSE Routine 01/11/2024 10:00 AM CDT documented in this encounter Results * (ABNORMAL) POC GLUCOSE (01/11/2024 10:00 AM CDT) POC Glucose 362(H) 70 - 100 mg/dL [facility] POINT [facility] CARE Blood 01/11/2024 10:0 0 AM CDT us Nikolai Martinez MD LABORATORY Final Result [facility]ARE [address] [place] [address], documented in this encounter Visit Diagnoses Diagnosis Soft tissue infection- Primary Unspecified infectious and parasitic diseases Other acute osteomyelitis of left foot (CMS/HHS) documented in this encounter Additional Health Concerns Infection Onset Date Last Indicated Resolved Time 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
--- OUTSIDE RECORDS SUMMARY | 2024-04-03 08:58 | XMS_ITS | Encounter Summary ---
Author Organization [facility] Address [address] [place] [address] Phone Care Team Providers Care Processing Associate Name Role Phone Unavailable Primary Care [...]
--- OUTSIDE RECORDS SUMMARY | 2024-04-03 08:58 | XMS_ITS | Encounter Summary ---
Author Organization [facility] Address [address] [place] [address] Phone Care Team Providers Care Ash Worker Name Role Phone Unavailable Primary Care [...]
--- OUTSIDE RECORDS SUMMARY | 2024-04-03 08:58 | XMS_ITS | Encounter Summary ---
Author Organization [facility] Address [address] [place] [address] Phone Care Team Providers Care Beater Dumper Name Role Phone Unavailable Primary Care Provider Unavailabl e Encounter Details Date Type Department Care Team (Late st Contact Info) Description 01/06/2024 9:40 AM CDT - 01/06/2024 11:59 PM CDT Hospital Encounter [facility]bar[facility] [address] [place], [place] [address] David Cortes MD 701 [facility] 825 [place], [place] [address] Discharge Disposition: Discharged to home or self [...]
--- OUTSIDE RECORDS SUMMARY | 2024-04-03 08:58 | XMS_ITS | Encounter Summary ---
Author Organization [facility] Address [address] [place] [address] Phone Care Team Providers Care Physician Office Specialist Name Role Phone Unavailable Primary Care Provider Unavailabl e Encounter Details Date Type Department Care Team (Late st Contact Info) Description 01/12/2024 9:53 AM CDT - 01/12/2024 11:59 PM CDT Hospital Encounter [facility] Hyperbaric [address] [place], [place] [address] SophiaDavid ward MD 701 [facility] 8[address] [place], [place] [address] Routine, Hbo - [address] Discharge Disposition: Discharged to home or self [...] 90 01/12/2024 9:00 AM CDT Temperature 36.4 C (97.5 F) 01/12/2024 9:00 AM CDT Respiratory Rate 17 01/12/2024 9:00 AM CDT [...] hesitate to call the Hyperbaric Department at [phone] during clinic hours or page station mechanic helper staff with any updates, questions, or concerns. [...] POC Glucose 414(H) 70 - 100 mg/dL [facility] POINT OF CARE Blood 01/12/2024 10:0 2 AM CDT us David Cortes MD LABORATORY Final Res ult [facility]INT [facility] CARE [address] [place] [address], [place] documented in this encounter Visit Diagnoses Diagnosis Soft tissue infection- Primary Unspecified infectious and parasitic diseases Other acute osteomyelitis of left foot (CMS/HHS) documented in this encounter Additional Health Concerns Infection Onset Date Last Indicated Resolved Time 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
--- OUTSIDE RECORDS SUMMARY | 2024-04-03 08:58 | XMS_ITS | Encounter Summary ---
Author Organization [facility] Address [address] [facility] [place] [address] Phone Care Team Providers Care Sample Builder Name Role Phone Unavailable Primary Care Provider Unavailabl e Encounter Details Date Type Department Care Team (Late st Contact Info) Description 01/05/2024 Orders Only [facility] Hyperbaric [address] [place], [place] [phone] Talita Patel MD [address] [place], [place] [id number] Social History Tobacco Use Types Packs/Day Years [...]
--- OUTSIDE RECORDS SUMMARY | 2024-04-03 08:58 | XMS_ITS | Encounter Summary ---
Author Organization [facility] Address [address] [place] [address] Phone Care Team Providers Care Drip Box Tender Name Role Phone Unavailable Primary Care Provider Unavailabl e Encounter Details Date Type Department Care Team (Late st Contact Info) Description 01/05/2024 9:32 AM CDT - 01/05/2024 11:59 PM CDT Hospital Encounter [facility] Hyperbaric [address] [facility] [address] [place], [place] [address] SophiaDavid ward MD 701 [facility] 825 [place], [place] [address] Routine, Hbo - [address] Discharge Disposition: Discharged to home or self [...] 84 01/05/2024 9:00 AM CDT Temperature 36.3 C (97.3 F) 01/05/2024 9:00 AM CDT Respiratory Rate 16 01/05/2024 9:00 AM CDT [...] hesitate to call the Hyperbaric Department at [phone] during clinic hours or page health education coordinator staff with any updates, questions, or [...] POC Glucose 328(H) 70 - 100 mg/dL [facility] POINT OF CARE Blood 01/05/2024 9:54 AM CDT us David Cortes MD LABORATORY Final Res ult [facility] CARE [address] [place] [address], [place] documented in this encounter Visit Diagnoses Diagnosis Soft tissue infection- Primary Unspecified infectious and parasitic diseases Other acute osteomyelitis of left foot (CMS/[facility]) documented in this encounter Additional Health Concerns Infection Onset Date Last Indicated Resolved Time 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
--- OUTSIDE RECORDS SUMMARY | 2024-04-03 08:58 | XMS_ITS | Encounter Summary ---
Author Organization [facility] Address [address] [place] [address] Phone Care Team Providers Care Special Needs Bus Driver Name Role Phone Unavailable Primary Care Provider Unavailabl e Encounter Details Date Type Department Care Team (Late st Contact Info) Description 01/06/2024 9:50 AM CDT - 01/06/2024 11:59 PM CDT Hospital Encounter [facility] Hyperbaric [address] [facility] 9[address] [place], [place] [phone] SophiaDavid ward MD 701 [facility] 825 [place], [place] [address] Routine, Hbo - [address] Discharge Disposition: Discharged to home or self [...] 87 01/06/2024 9:00 AM CDT Temperature 36 C (96.8 F) 01/06/2024 9:00 AM CDT Respiratory Rate 16 [...] hesitate to call the Hyperbaric Department at [phone] during clinic hours or page cardiac rehabilitation specialist staff with any updates, questions, or [...] Glucose 308(H) 70 - 100 mg/dL [facility] POINT OF CARE Blood 01/06/2024 9:52 AM CDT us David Cortes MD LABORATORY Final Res ult [facility] POINT OF CARE [address] [place] [address], [place] documented in this encounter Visit Diagnoses Diagnosis Soft tissue infection- Primary Unspecified infectious and parasitic diseases Other acute osteomyelitis of left foot (CMS/HHS) documented in this encounter Additional Health Concerns Infection Onset Date Last Indicated Resolved Time 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
--- OUTSIDE RECORDS SUMMARY | 2024-04-03 08:58 | XMS_ITS | Encounter Summary ---
Author Organization [facility] Address [address] [place] [address] Phone Care Team Providers Care Correctional Case Records Supervisor Name Role Phone Unavailable Primary Care [...]
--- OUTSIDE RECORDS SUMMARY | 2024-04-03 08:58 | XMS_ITS | Encounter Summary ---
Author Organization [facility] Address [address] [place] [address] Phone Care Team Providers Care Commercial Parts Professional Name Role Phone Unavailable Primary Care [...]
--- OUTSIDE RECORDS SUMMARY | 2024-04-03 08:58 | XMS_ITS | Encounter Summary ---
Author Organization [facility] Address [address] [place] [address] Phone Care Team Providers Care Fiber Designer Name Role Phone Unavailable Primary Care Provider Unavailabl e Reason for Visit * Reason Onset Date Comments Care Coordination 12/28/2023 Called to disc us outpatient HBOT schedule Encounter Details Date Type Department Care Team (Late st Contact Info) Description 12/28/2023 Telephone [facility] Hyperbaric [address] [address] Dayanna Rodriguez RN [address] [place] [address] Care Coordination (Called to discuss outpatient HBOT [...] schedule was printedand faxed to Vannesa at [phone]. She reported that she may need x 2 days to get transport set up. documented in this encounter Plan of Treatment Not on file documented as of this encounter Visit Diagnoses Not on filedocumented in this encounter Additional Health Concerns Infection Onset Date Last Indicated Resolved Time 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
--- OUTSIDE RECORDS SUMMARY | 2024-04-03 08:58 | XMS_ITS | Encounter Summary ---
Author Organization [facility] Address [address] [facility] [place] [address] Phone Care Team Providers Care Stoper Name Role Phone Unavailable Primary Care Provider Unavailabl e Encounter Details Date Type Department Care Team (Latest Contact Info) Description 01/07/2024 10:06 AM CDT - 01/07/2024 11:59 PM CDT Hospital Encounter [facility] [place] [facility] [address] [place] [address] Maggy Horan MD [address] [place], [place] [id number] Ycloofg, Orn - [id number] Discharge Disposition: Discharged to home or self [...] 101 01/07/2024 10:00 AM CDT Temperature 35.2 C (95.4 F) 01/07/2024 10:00 AM CDT Respiratory Rate 16 01/07/2024 10:00 AM CDT [...] hesitate to call the Hyperbaric Department at [phone] during clinic hours or page masonry teacher staff with any updates, questions, or [...] POC Glucose 344(H) 70 - 100 mg/dL [facility] - POINT OF CARE Blood 01/07/2024 12:2 7 PM CDT us Maggy Horan MD LABORATORY Final Result [facility] - POINT OF CARE [address] [place] [address], * (ABNORMAL) POC GLUCOSE (01/07/2024 10:20 AM CDT) POC Glucose 357(H) 70 - 100 mg/dL [facility] - POINT OF CARE Blood 01/07/2024 10:2 0 AM CDT us Maggy Horan MD LABORATORY Final Result Performing Organization Address City/State/[facility] Co de Phone Number [facility] [address] [place] [address], documented in this encounter Visit Diagnoses Diagnosis Soft tissue infection- Primary Unspecified infectious and parasitic diseases Other acute osteomyelitis of left foot (CMS/HHS) documented in this encounter Additional Health Concerns Infection Onset Date Last Indicated Resolved Time 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
--- OUTSIDE RECORDS SUMMARY | 2024-04-03 08:58 | XMS_ITS | Encounter Summary ---
Author Organization [facility] [place] Address [address] [place] [address] Phone Care Team Providers Care Ski Lift Attendant Name Role Phone Unavailable Primary Care Provider Unavailabl e Encounter Details Date Type Department Care Team (Latest Contact Info) Description 12/31/2023 9:51 AM CDT - 12/31/2023 11:59 PM CDT Hospital En[place] [facility] [place] [address] [facility] [address] [place] [address] Masters, Douglas Osuna II, MD [address] [facility] [address] [place], [place] [id number] Routine, Iuk - [id number] Discharge Disposition: Discharged to home or self [...] 86 12/31/2023 9:00 AM CDT Temperature 36.6 C (97.9 F) 12/31/2023 9:00 AM CDT Respiratory Rate 15 12/31/2023 9:00 AM CDT [...] hesitate to call the Hyperbaric Department at [phone] during clinic hours or page day habilitation supervisor staff with any updates, questions, or [...] POC Glucose 295(H) 70 - 100 mg/dL [facility] - POINT OF CARE Blood 12/31/2023 9:57 AM CDT Douglas Morris II, MD LABORATORY Final Re sult [facility] - POINT OF [place] [address], documented in this encounter Visit Diagnoses Diagnosis [...]
--- OUTSIDE RECORDS SUMMARY | 2024-04-03 08:58 | XMS_ITS | Encounter Summary ---
Author Organization [facility] Address [address] [place] [address] Phone Care Team Providers Care Sewer Inspector Name Role Phone Unavailable Primary Care Provider Unavailabl e Reason for Visit * Reason Comments Post Op Encounter Details Date Type Department Care Team (Late st Contact Info) Description 12/31/2023 1:00 PM CDT [facility] [address] [address] Afshan Sims, DPMorelia [address] [id number] S/P foot surgery, right (Primary Dx) Discharge [...] up 3 weeks at the front office coordinator - Please schedule an appointment with orthotics at the front office coordinator for diabetic shoes and inserts - A [...] Schizophrenia History of TBI --Patient is own [facility] Clinic plan: -Discussed postoperative course and expectations [...]
--- OUTSIDE RECORDS SUMMARY | 2024-04-03 08:58 | XMS_ITS | Encounter Summary ---
Author Organization [facility] Address [address] [place] [address] Phone Care Team Providers Care Snack Foods Mixer Operator Name Role Phone Unavailable Primary Care Provider Unavailabl e Encounter Details Date Type Department Care Team (Latest Contact Info) Description 01/04/2024 10:16 AM CDT - 01/04/2024 11:59 PM CDT Hospital Encounter [facility] [place] Hyperbaric [address] [facility] [address] [place] [address] Masters, Douglas Osuna II, MD 701 [facility] [address] [place], [place] [address] Routine, Bui - [id number] Discharge Disposition: Discharged to home or self [...] 92 01/04/2024 9:00 AM CDT Temperature 35.8 C (96.4 F) 01/04/2024 9:00 AM CDT Respiratory Rate 14 01/04/2024 9:00 AM CDT [...] hesitate to call the Hyperbaric Department at [phone] during clinic hours or page sonographer staff with any updates, questions, or concerns. [...] Glucose 340(H) 70 - 100 mg/dL [facility] - POINT OF CARE Blood 01/04/2024 10:0 3 AM CDT us Douglas Morris II, MD LABORATORY Final Re sult [facility] - POINT OF CARE [address] [place] [address], [place] documented in this encounter Visit Diagnoses Diagnosis Soft tissue infection- Primary Unspecified infectious and parasitic diseases Other acute osteomyelitis of left foot ([facility]) documented in this encounter Additional Health Concerns Infection Onset Date Last Indicated Resolved Time 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
--- OUTSIDE RECORDS SUMMARY | 2024-04-03 08:58 | XMS_ITS | Encounter Summary ---
Author Organization [facility] Address [address] [place] [address] Phone Care Team Providers Care Cinder Crusher Operator Name Role Phone Unavailable Primary Care [...]
--- OUTSIDE RECORDS SUMMARY | 2024-04-03 08:58 | XMS_ITS | Encounter Summary ---
Author Organization [facility] Address [address] [place] [address] Phone Care Team Providers Care Exchange Specialist Name Role Phone Unavailable Primary Care [...]
--- OUTSIDE RECORDS SUMMARY | 2024-04-03 08:58 | XMS_ITS | Encounter Summary ---
Author Organization [facility] Address [address] [facility] [place] [address] Phone Care Team Providers Care Dba Developer Name Role Phone Unavailable Primary Care Provider Unavailabl e Encounter Details Date Type Department Care Team (Latest Contact Info) Description 12/29/2023 9:38 AM CDT - 12/29/2023 11:59 PM CDT Hospital Encounter [facility] [place] Hyperbaric [address] [place] [address] Nikolai Martinez MD [address] [facility] [place], [place] [address] Hzfblwr, Maz - [id number] Discharge Disposition: Discharged to home or self [...] 101 12/29/2023 10:00 AM CDT Temperature 35.7 C (96.3 F) 12/29/2023 10:00 AM CDT Respiratory Rate 15 12/29/2023 10:00 AM CDT [...] hesitate to call the Hyperbaric Department at [phone] during clinic hours or page hospital admissions clerk staff with any updates, questions, or [...] POC Glucose 323(H) 70 - 100 mg/dL [facility] - POINT OF CARE Blood 12/29/2023 10:0 7 AM CDT us Nikolai Martinez MD LABORATORY Final Result [facility] - POINT OF CARE [address] [place] [address], documented in this encounter Visit Diagnoses Diagnosis Soft tissue infection- Primary Unspecified infectious and parasitic diseases Other acute osteomyelitis of left foot ([facility]) documented in this encounter Administered Medications Inactive [...]
--- OUTSIDE RECORDS SUMMARY | 2024-04-03 08:58 | XMS_ITS | Encounter Summary ---
Author Organization [facility] Address [address] [place] [address] Phone Care Team Providers Care Shoe Repair Supervisor Name Role Phone Unavailable Primary Care Provider Unavailabl e Encounter Details Date Type Department Care Team (Late st Contact Info) Description 12/30/2023 9:49 AM CDT - 12/30/2023 11:59 PM CDT Hospital Encounter [facility] [place] Hyperbaric [address] [facility] [address] [place], [place] [phone] SophiaDavid ward MD 701 [facility] [address] [place], [place] [address] Routine, Hbo - [id number] Discharge Disposition: Discharged to home or self [...] 85 12/30/2023 9:00 AM CDT Temperature 36.6 C (97.9 F) 12/30/2023 9:00 AM CDT Respiratory Rate 16 12/30/2023 9:00 AM CDT [...] hesitate to call the Hyperbaric Department at [phone] during clinic hours or page long chain quiller tender staff with any updates, questions, or concerns. [...] POC Glucose 352(H) 70 - 100 mg/dL [facility] - POINT OF CARE Blood 12/30/2023 9:54 AM CDT us David Cortes MD LABORATORY Final Res ult [facility] - POINT OF CARE [address] [place] [address], documented in this encounter Visit Diagnoses Diagnosis [...]
--- OUTSIDE RECORDS SUMMARY | 2024-04-03 08:58 | XMS_ITS | Encounter Summary ---
Author Organization [facility] Address [address] [place] [address] Phone Care Team Providers Care Fingernail Technician Name Role Phone Unavailable Primary Care [...]
--- OUTSIDE RECORDS SUMMARY | 2024-04-03 08:58 | XMS_ITS | Encounter Summary ---
Author Organization [facility] Address [address] [facility] [place] [address] Phone Care Team Providers Care National Sales Consultant Name Role Phone Unavailable Primary Care Provider Unavailabl e Encounter Details Date Type Department Care Team (Latest Contact Info) Description 01/03/2024 9:33 AM CDT - 01/03/2024 11:59 PM CDT Hospital Encounter [facility] [place]bar[facility] [address] [facility] [address] [place] [address] Narcisa Sanford MD [address] [place], [place] [address] [facility] - [id number] Discharge Disposition: Discharged to home or self [...] 97 01/03/2024 9:00 AM CDT Temperature 36.5 C (97.7 F) 01/03/2024 9:00 AM CDT Respiratory Rate 16 01/03/2024 9:00 AM CDT [...] hesitate to call the Hyperbaric Department at [phone] during clinic hours or page deportation officer staff with any updates, questions, or [...] POC Glucose 305(H) 70 - 100 mg/dL [facility] - POINT OF CARE Blood 01/03/2024 9:50 AM CDT us Narcisa Sanford MD LABORATORY Final Result [facility] POINT [facility] CARE [address] [place] [address], documented in this encounter Visit Diagnoses Diagnosis Soft tissue infection- Primary Unspecified infectious and parasitic diseases Other acute osteomyelitis of left foot ([facility]) documented in this encounter Administered Medications [...]
--- OUTSIDE RECORDS SUMMARY | 2024-04-03 08:59 | XMS_ITS | Clinical Summary ---
Author Organization [facility] Address [place], [place] [address] Care Team Providers Care Disbursement Clerk Name Role Phone Nghia Arauz MD Unavailable VoJose R penny MD Primary Care Provider + Allergies Active [...] to test 4 times daily. 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 1 Each 07/23/2022 Active durable medical equipment (DME)Indications:Fo llow-up examination after orthopedic surgery,Osteomyelit is of right foot, unspecified type (HC),Diabetic ulcer of right midfoot associated with type 2 diabetes mellitus, with necrosis of muscle (HC) SQUARED TOE POST OP SHOE, LARGE, REF: [phone] 1 Each 10/14/2022 Active ondansetron (ZOFRAN ODT) 4 mg disintegrating tabletIndications:N ausea Place 1-2 Tablets (4-8 mg) on the tongue every 8 hours if needed for Nausea/Vomiting. 30 Tablet 10/22/2022 Active acetaminophen (TYLENOL EXTRA STRGTH) 500 mg tabletIndications:F ollow-up examination after orthopedic surgery TAKE 2 TABLETS BY MOUTH EVERY 6 HOURS NEEDED FOR PAIN --DO NOT EXCEED 4,000 MG ACETAMINOPHEN IN 24 HOURS-- 60 Tablet 12 11/12/2022 Active nicotine (Nicorette) 4 mg lozengeIndications: Tobacco use Place 1 Lozenge (4 mg) in mouth, between cheek & gum every hour while awake as needed for Nicotine Craving. Max 20 doses/day. 240 Each 5 12/08/2022 Active durable medical equipment (DME)Indications:Os teomyelitis of right foot, unspecified type (HC) SQUARED TOE POST OP SHOE, LARGE, REF: [phone] 1 Each 12/30/2022 Active acetaminophen (TYLENOL EXTRA STRGTH) 500 mg tablet Take 500 mg by mouth. 09/23/2022 Active insulin lispro, U-100, (HUMALOG KWIKPEN; ADMELOG SOLOSTAR) 100 unit/mL inpn pen Inject 10 units subcutaneous. 09/23/2022 Active hydrOXYzine pamoate (VISTARIL) 25 mg capsuleIndications: Osteomyelitis of right foot, unspecified type (HC) Take 1-2 Capsules (25-50 mg) by mouth every 6 hours if needed for Anxiety or Itching (Pain). 20 Capsule 01/01/2023 Active melatonin 1 mg tablet Take 3 mg by mouth at bedtime. 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 E11.9 NIDDM type II - Test 4 times/day. Reason: High A1C 400 Each 3 08/16/2023 Active ibuprofen (ADVIL; MOTRIN) 800 mg tablet 08/11/2023 Active rosuvastatin (CRESTOR) 10 mg tabletIndications:H yperlipidemia, unspecified hyperlipidemia type TAKE 1 TABLET BY MOUTH EVERY NIGHT AT BEDTIME 90 Tablet 2 09/08/2023 Active losartan (COZAAR) 50 mg tabletIndications:T ype 2 diabetes mellitus with diabetic nephropathy, without long-term current use of insulin (HC) TAKE 1 TABLET BY MOUTH DAILY 28 Tablet 12 10/21/2023 Active miscellaneous medical supply miscIndications:Ellie betic ulcer of toe of left foot associated with type 2 diabetes mellitus, with fat layer exposed (HC) As directed. 30 Each 2 10/27/2023 Active povidone-iodine (PROFEND, BETADINE) 10 % topical swabIndications:Ellie betic ulcer of toe of left foot associated with type 2 diabetes mellitus, with fat layer exposed (HC) Apply 1 Applicator topically to affected area(s) one time if needed (as needed for wound care) for up to 1200 doses. 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 28 Capsule 12 01/25/2024 Active paliperidone palmitate (INVEGA SUSTENNA) 156 mg/mL intramuscular syringeIndications: Paranoid schizophrenia (HC) Inject 156 mg intramuscular every 4 weeks. 1 mL 12 01/25/2024 Active traZODone (DESYREL) 50 mg tabletIndications:I nsomnia due to mental condition Take 1 Tablet (50 mg) by mouth at bedtime, may repeat once. 28 Tablet 01/25/2024 Active escitalopram oxalate (LEXAPRO) 20 mg tabletIndications:P aranoid schizophrenia (HC),Other specified anxiety disorders Take 1 Tablet (20 mg) by mouth at bedtime. 28 Tablet 12 01/25/2024 Active ciprofloxacin HCl (CIPROFLOXACIN, BULK, MISC) As directed 500 mg two times daily. take 1 table by mouth twice daily for 10 days. 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 Product desired: LANTUS SOLOSTAR 15 mL 11 02/02/2024 Active HumaLOG KwikPen Insulin 100 unit/mL inpn penIndications:Type 2 diabetes mellitus with diabetic nephropathy, with long-term current use of insulin (HC) INJECT 10 UNITS SUBCUTANEOUSLY THREE TIMES DAILY WITH MEAL(S) 60 mL 11 02/02/2024 Active psyllium powdIndications:Loo se stools Mix 1 tsp in liquid then take by mouth once daily. 283 g 02/02/2024 Active amLODIPine (NORVASC) 10 mg tabletIndications:H TN (hypertension) TAKE 1 TABLET BY MOUTH DAILY *HOLD FOR SBP LESS THAN 120* 28 Tablet 12 02/28/2024 Active cyclobenzaprine (FLEXERIL) 10 mg tabletIndications:M uscle spasm TAKE 1 TABLET BY MOUTH 3 TIMES DAILY 84 Tablet 12 02/28/2024 Active acetaminophen (TYLENOL) 325 mg tabletIndications:P ain TAKE 3 TABLETS BY MOUTH 3 TIMES DAILY 100 Tablet 11 02/28/2024 Active Stimulant Laxative Plus 8.6-50 mg tabletIndications:C hronic constipation TAKE 2 TABLETS BY MOUTH TWICE DAILY 112 Tablet 12 02/28/2024 Active chlorhexidine (PERIDEX) 0.12 % solutionIndications :Chronic gum disease RINSE WITH 15ML FOR 30 SECONDS ONCE DAILY THEN SPIT. NOTHING BY MOUTH FOR 30 MINUTES AFTER 473 mL 11 03/01/2024 Active Active Problems Problem Noted Date Diagnosed [...] Encounters Date Type Department Care Team Description 03/29/2024 2:30 PM ACCOUNTS CLERK Office Visit [facility] [address] [place] [address] Vini Hayden, DPM Follow Up (Bilateral diabetic foot check, New diabetic shoes) 03/29/2024 Travel 02/29/2024 Orders Only [facility] Scanner 1 scan: (1-Ord) [facility], 02/29/2024 02/27/2024 Refill [facility] [address] [place] [address] Jose R Foster MD Refill Request (Chlorhexidine) 02/22/2024 Refill [facility] [address] [place] [address] Jose R Foster MD Refill Request (Acetaminophen, Stimulant Laxative Plus) 02/22/2024 Refill [facility] [address] [place] [address] Jose R Foster MD Refill Request (Amlodipine, Cyclobenzaprine) 02/02/2024 3:20 PM CDT Office Visit [facility] [address] [place] [address] Jose R Foster MD Diabetes; Hospital F/U ([facility], left foot); Wound Check (groin) 02/02/2024 Travel 01/25/2024 1:30 PM CDT Office Visit [facility] [address] [place] [address] Trey Kim MD Follow Up; Medication Management (feeling, good. I'm sad, because my taxi tickets didn't come in yet. And my back is really sore) 01/25/2024 Travel 01/24/2024 Refill [facility] [address] [place] [address] Jose R Foster MD Refill Request (Dexcom [...] Sign Reading Time Taken Comments Blood Pressure 136/84 03/29/2024 2:38 PM ACCOUNTS CLERK Pulse 100 03/29/2024 2:38 PM ACCOUNTS CLERK Temperature 36.7 C (98 F) 02/02/2024 3:22 PM CDT Respiratory Rate 18 01/01/2023 4:00 PM CDT Oxygen Saturation 95% 03/29/2024 2:38 PM ACCOUNTS CLERK Inhaled Oxygen Concentration - - Weight 136.1 kg (300 lb) 02/02/2024 3:22 PM CDT Height 180.3 cm (5' 11) 02/02/2024 3:22 PM CDT Body Mass Index 41.84 02/02/2024 3:22 PM CDT Plan of Treatment Upcoming Encounters Date Type Department Care Team (Late st Contact Info) Description 05/11/2024 10:50 AM ACCOUNTS CLERK Office Visit [facility] [address] [place] [address] Jose R Foster MD [address] [place] [address] 09/27/2024 1:00 PM CDT Office Visit [facility] [address] [place] [address] Vini Hayden DPM [address] [place] [address] Health Maintenance Due Date Last Done Comments [...] 07/24/19 23, 04/19/2019 COVID-19 vaccine series Completed 02/15/20 24, 08/19/2023, 02/22/2023 Goals Goal Patient Goal Type Associated Problems [...] (POCT) (02/02/2024 3:14 PM CDT) Pathologist [facility] POC HEMOGLOBIN A1C 10.0(H) <6.0 % OF TOTAL HGB [facility] Comment: Any point of care results exhibiting inconsistency with the patient's clinical status should be repeated using a different testing method. Blood BLOOD SPECIMEN / Unknown 02/02/2024 3:14 PM CDT 02/02/2024 3:14 PM CDT Jose R Foster MD CHEMISTRY [facility] [address] [place] [address], [facility] [address] [place] [address] * (ABNORMAL) CBC WITH AUTO DIFFERENTIAL (02/02/2024 3:13 PM CDT) Pathologist [facility] WHITE BLOOD CELL COUNT 11.6(H) 3.8 - [...] Jose R Foster MD HEMATOLOGY [facility] [address] [place] [address], [facility] [address] [place] [address] * (ABNORMAL) BASIC METABOLIC PANEL (02/02/2024 3:13 PM CDT) [facility] Signature GLUCOSE 326(H) 65 - 99 mg/dL [facility] Comment: Fasting reference interval For someone without known [...] 22 (calc) [facility] Comment: Not Reported: BUN and Creatinine are within reference range. SODIUM 135 135 - 146 mmol/L [facility] POTASSIUM 4.2 3.5 - 5.3 mmol/L [facility] CHLORIDE 98 98 - 110 mmol/L [facility] CARBON DIOXIDE 26 20 - 32 mmol/L [facility] ELECTROLYTE BALANCE 11 7 - 17 mmol/L (calc) [facility] CALCIUM 9.1 8.6 - 10.3 mg/dL [facility] Blood BLOOD SPECIMEN / Unknown 02/02/2024 3:13 PM CDT 02/02/2024 3:13 PM CDT Jose R Foster MD CHEMISTRY [facility] [address] [place] [address], [facility] [address] [place] [address] * (ABNORMAL) LIPID PANEL W REFLEX MEASURED LDL (07/27/2023 2:22 PM CDT) CHOLESTEROL,TOTAL 190 100 - 199 mg/dL 07/27/2023 9:24 PM CDT [facility] Comment: Cholesterol, Total Reference Ranges Desirable <200 mg/dL Borderline 200-239 mg/dL High >=240 mg/dL TRIGLYCERIDES 340(H) <150 mg/dL 07/27/2023 9:24 PM CDT [facility] HDL CHOLESTEROL 45 >40 mg/dL 9:24 PM CDT [facility] NON-HDL CHOLESTEROL 145(H) <145 mg/dl 07/27/2023 9:24 PM CDT [facility] CHOL/HDL RATIO 4.22 <4.50 07/27/2023 9:24 PM CDT [facility] LDL CHOLESTEROL 77 <=130 mg/dL 07/27/2023 9:24 PM CDT [facility] VLDL CHOLESTEROL 68(H) <=30 mg/dL 07/27/2023 9:24 PM CDT [facility] PROVIDER ORDERED STATUS RANDOM 07/27/2023 9:24 PM CDT [facility] Blood BLOOD SPECIMEN / Unknown Venipuncture / Unknown 07/27/2023 2:22 PM CDT 07/27/2023 2:25 PM CDT Trey Kim MD CHEMISTRY Performing Organization Address City/State/[facility] Co de Phone Number [facility] [address] [place] [address], [place] from Last 3 Months or Most Recently [...] 8:06 AM 11/08/2018 2:17 PM Care Teams Disbursement Clerk Relationship Specialty Start Date End Date VotelJose R MD [address] [place] [address] PCP - General Family Practice 07/23/22 Nghia Arauz MD Family Practice 12/25/10
--- OUTSIDE RECORDS SUMMARY | 2024-04-03 08:59 | XMS_ITS | Encounter Summary ---
Author Organization [facility] Address [address] [place] [address] Phone Care Team Providers Care Teenage Babysitter Name Role Phone Unavailable Primary Care Provider Unavailabl e Reason for Visit * Reason Comments Wound Encounter Details Date Type Department Care Team (Late st Contact Info) Description 12/27/2023 9:00 AM CDT Nurse Only [facility] [address] [address] Afshan Sims, DPMorelia [address] [id number] Discharge Disposition: Discharged to home or self [...] on Original Admission: Yes Location:Groin Site Assessment Granular;[place] Rain-Wound Assessment Intact Tunneling or undermining present? [...]
--- OUTSIDE RECORDS SUMMARY | 2024-04-03 08:59 | XMS_ITS | Encounter Summary ---
Author Organization [facility] Address [address] [place] [address] Phone Care Team Providers Care Pan Dumper Name Role Phone Unavailable Primary Care [...]
== END 2024-04-03 08:55 | disposition home or self-care (01) ==
PROVIDERS: PCP Family Medicine; Visit Provider Nurse Practitioner Family
DX: E11.622 Type 2 diabetes mellitus with other skin ulcer (principal); L98.412 Non-pressure chronic ulcer of buttock with fat layer exposed; Z79.4 Long term (current) use of insulin
CPT/HCPCS: 17250; 97602; G0463

== ENCOUNTER 2024-04-17 09:02 | Outpatient (CLI) | payer MEDICARE, MEDICAID, SELFPAY ==
--- OUTSIDE RECORDS SUMMARY | 2024-04-17 09:03 | XMS_ITS | Encounter Summary ---
Author Organization [facility] Address [address] [facility] [place] [address] Phone Care Team Providers Care Cellophane Wrapping Examiner Name Role Phone Unavailable Primary Care Provider Unavailabl e Encounter Details Date Type Department Care Team (Latest Contact Info) Description 01/19/2024 10:30 AM CDT - 01/19/2024 11:59 PM CDT Hospital Encounter [facility] Hyperbaric [address] [place] [address] Nkiolai Martinez MD [address] [facility] [address] [place], [place] [address] Bzxahqk, Sbw - [address] Discharge Disposition: Discharged to home or self [...] hesitate to call the Hyperbaric Department at [phone] during clinic hours or page conference service coordinator staff with any updates, questions, or [...] POC Glucose 323(H) 70 - 100 mg/dL [facility] Blood 01/19/2024 12:2 2 PM CDT us Nikolai Martinez MD LABORATORY Final Result [facility] [address] [place] [address], [place] * (ABNORMAL) POC GLUCOSE (01/19/2024 9:58 AM CDT) POC Glucose 353(H) 70 - 100 mg/dL [facility] Blood 01/19/2024 9:58 AM CDT us Provider Unknown LABORATORY Final Result [facility] [address] [place] [address], documented in this encounter Visit Diagnoses Diagnosis Soft tissue infection- Primary Unspecified infectious and parasitic diseases Other acute osteomyelitis of left foot (CMS/HHS) documented in this encounter Additional Health Concerns Infection Onset Date Last Indicated Resolved Time 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
--- OUTSIDE RECORDS SUMMARY | 2024-04-17 09:03 | XMS_ITS | Referral Summary ---
Author Organization [facility] Address [address] [place] [address] Phone Care Team Providers Care Fire Investigator Name Role Phone Unavailable Primary Care Provider Unavailabl e Source Comments [employer] [employer] is fully rolled out on [facility] [facility]. Last update 10/12/08.[facility] Encounters Date Type Department Care Team Description 01/20/2024 Travel 01/20/2024 9:54 AM CDT - 01/20/2024 11:59 PM CDT Hospital En[facility] [address] [place] [address] David Cortes MD Routine, Hbo - Discharge Disposition: Discharged to home or self care 01/20/2024 1:30 PM CDT [facility] [address] [address] Afshan Sims DPM S/P foot surgery, right (Primary Dx); 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[facility]) Discharge Disposition: Discharged to home or self care 01/19/2024 Travel 01/19/2024 10:30 AM CDT - 01/19/2024 11:59 PM CDT Hospital Encounter [facility] Hyperbaric [address] [place] [address] Nikolai Martinez MD Routine, Hbo - Discharge Disposition: Discharged to home or self care 01/18/2024 Travel 01/18/2024 10:06 AM CDT - 01/18/2024 11:59 PM CDT Hospital Encounter [facility] [address] [place] [address] David Cortes MD Routine, Hbo - Discharge Disposition: Discharged to home or self care 01/17/2024 Travel 01/17/2024 9:42 AM CDT - 01/17/2024 11:59 PM CDT Hospital Encounter [facility] [address] [place] [address] Douglas Morris II, MD Routine, Hbo - [...] POC GLUCOSE Routine 01/17/2024 9:59 AM CDT PC LAB GLYCOSYLATED HGB Routine 12/08/2023 4:47 PM CDT PC HIV-1 AG W/HIV-1 & HIV-2 AB Timed 11/15/2023 7:39 AM CDT from Last 3 Months or Most Recently Relevant to Health Maintenance Results * (ABNORMAL) POC GLUCOSE (01/19/2024 12:22 PM CDT) Only the most recent of4 resultswithin the time period is included. POC Glucose 323(H) 70 - 100 mg/dL [facility] Blood 01/19/2024 12:2 2 PM CDT us Nikolai Martinez MD LABORATORY Final Result [facility] [address] [place] [address], [place] * (ABNORMAL) GLYCOSYLATED HGB - A1C (12/08/2023 4:47 PM CDT) Pathologist [facility] Hemoglobin A1C 8.5(H) 4.0 - 5.6 % [facility] Comment: Increased risk for diabetes (prediabetes): 5.7-6.4% Diabetes >=6.5% In the absence of unequivocal hyperglycemia, diagnosis requires two abnormal test results (i.e. HbA1c and glucose) or two abnormal results from specimens collected at two different timepoints. The presence of some hemoglobin variants or red cell disorders may interfere with the measurement of hemoglobin A1c (HbA1c). Estimated Average Glucose 197(H) 68 - 114 [facility] Comment: The estimated Average Glucose (eAG) was calculated using an equation derived from a study of 507 adults with type 1, type 2, or no diabetes. Minority populations were underrepresented and children were not included. The eAG is not equivalent to a fasting glucose concentration. Blood 12/08/2023 4:47 PM CDT 12/08/2023 5:07 PM CDT Narrative [facility] - 12/08/2023 6:01 PM CDT If not done in the last 30 days. us Afshan Shafer PA-C LABORATORY Final Res ult [facility] [address] [address] * HIV COMBO (11/15/2023 7:39 AM CDT) [facility] Signature HIV Antigen-Antibody Nonreactive Nonreactive [facility] Comment:Performance characte ristics have not been established with this test on patients less than 2 years of age. Blood 11/15/2023 7:39 AM CDT 11/15/2023 7:58 AM CDT us Zac Jackson MD LABORATORY Final Result Performing Organization Address City/[facility] [address]/ZIP Co de Phone Number [address] [address] from Last 3 Months or Most Recently Relevant to Health Maintenance Additional Health Concerns Infection Onset Date Last Indicated MRSA 11/17/2023 12/08/2023 Insurance [employer]ICA[employer] [facility] Advance Directives For more information, please contact: [phone] * Full Code (Latest Code Status on [...]
--- OUTSIDE RECORDS SUMMARY | 2024-04-17 09:03 | XMS_ITS | Encounter Summary ---
Author Organization [facility] Address [address] [place] [address] Phone Care Team Providers Care Reel Cart Operator Name Role Phone Unavailable Primary Care [...]
--- OUTSIDE RECORDS SUMMARY | 2024-04-17 09:03 | XMS_ITS | Encounter Summary ---
Author Organization [facility] Address [address] [place] [address] Phone Care Team Providers Care Building Construction Inspector Name Role Phone Unavailable Primary Care [...]
--- OUTSIDE RECORDS SUMMARY | 2024-04-17 09:03 | XMS_ITS | Encounter Summary ---
Author Organization [facility] Address [address] [place] [address] Phone Care Team Providers Care Territory Sales Manager Medical Name Role Phone Unavailable Primary Care Provider [...]
--- OUTSIDE RECORDS SUMMARY | 2024-04-17 09:03 | XMS_ITS | Clinical Summary ---
Author Organization [facility] Address [address] [place] [address] Phone Care Team Providers Care Ethylbenzene Converter Operator Name Role Phone Unavailable Primary Care Provider Unavailabl e Source Comments [employer] is fully rolled out on [employer]. 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[facility]) Discharge Disposition: Discharged to home or self care 01/20/2024 9:54 AM CDT - 01/20/2024 11:59 PM CDT Hospital Encounter [facility] Hyperbaric [address] [place] [address] David Cortes MD Routine, Hbo - Discharge Disposition: Discharged to home or self care 01/20/2024 Travel 01/19/2024 10:30 AM CDT - 01/19/2024 11:59 PM CDT Hospital Encounter [facility] [address] [place] [address] Nikolai Martinez MD Routine, Hbo - Discharge Disposition: Discharged to home or self care 01/19/2024 Travel 01/18/2024 10:06 AM CDT - 01/18/2024 11:59 PM CDT Hospital Encounter [facility] [address] [place] [address] David Cortes MD Routine, Hbo - Discharge Disposition: Discharged to home or self care 01/18/2024 Travel 01/17/2024 9:42 AM CDT - 01/17/2024 11:59 PM CDT Hospital Encounter [facility] [address] [place] [address] Douglas Morris II, MD Routine, Hbo - Discharge Disposition: Discharged to home or self care 01/17/2024 Travel from Last 3 Months Immunizations Name [...] is included. Pathologist [facility] POC Glucose 323(H) 70 - 100 mg/dL [facility] Blood 01/19/2024 12:2 2 PM CDT us Nikolai Martinez MD LABORATORY Final Result [facility] [address] [place] [address], [place] * (ABNORMAL) GLYCOSYLATED HGB - A1C (12/08/2023 4:47 PM CDT) [facility] Hemoglobin A1C 8.5(H) 4.0 - 5.6 % [facility] Comment: Increased risk for diabetes (prediabetes): 5.7-6.4% Diabetes >=6.5% In the absence of unequivocal hyperglycemia, diagnosis requires two abnormal test results (i.e. HbA1c and glucose) or two abnormal results from specimens collected at two different timepoints. The presence of some hemoglobin variants or red cell disorders may interfere with the measurement of hemoglobin A1c (HbA1c). Estimated Average Glucose 197(H) 68 - 114 [facility] Comment: The estimated Average Glucose (eAG) was calculated using an equation derived from a study of 507 adults with type 1, type 2, or no diabetes. Minority populations were underrepresented and children were not included. The eAG is not equivalent to a fasting glucose concentration. Blood 12/08/2023 4:47 PM CDT 12/08/2023 5:07 PM CDT Narrative [facility] - 12/08/2023 6:01 PM CDT If not done in the last 30 days. us Afshan Shafer PA-C LABORATORY Final Res ult [address] [address] * HIV COMBO (11/15/2023 7:39 AM CDT) [facility] HIV Antigen-Antibody Nonreactive Nonreactive [facility] Comment:Performance characte ristics have not been established with this test on patients less than 2 years of age. Blood 11/15/2023 7:39 AM CDT 11/15/2023 7:58 AM CDT us Zac Jackson MD LABORATORY Final Result Performing Organization Address City/[facility]/ZIP Co de Phone Number [address] [address] from Last 3 Months or Most Recently Relevant to Health Maintenance Additional Health Concerns Infection Onset Date Last Indicated MRSA 11/17/2023 12/08/2023 Insurance [employer] MEDICAID [facility] Advance Directives For more information, please contact: [phone] * Full Code (Latest Code Status on [...]
--- OUTSIDE RECORDS SUMMARY | 2024-04-17 09:03 | XMS_ITS | Encounter Summary ---
Author Organization [facility] Address [address] [place] [address] Phone Care Team Providers Care Ibm Websphere Portal Developer Name Role Phone Unavailable Primary Care Provider Unavailabl e Encounter Details Date Type Department Care Team (Late st Contact Info) Description 01/20/2024 9:54 AM CDT - 01/20/2024 11:59 PM CDT Hospital Encounter [facility] Hyperbaric [address] [place], [place] [address] SophiaDavid ward MD 701 [facility] [address] [place], [place] [address] Routine, Hbo - [phone] Discharge Disposition: Discharged to home or self [...] hesitate to call the Hyperbaric Department at [phone] during clinic hours or page web application dev specialist staff with any updates, questions, or [...] Cortes MD - 01/20/2024 10:30 AM CDT [facility] HYPERBARIC MEDICINE TREATMENT [...] urged continued close follow up with his Global Regulatory Lead for local wound care and monitoring. We noted our availability should future concern of complicated wound develop or as needed surrounding and in support of surgical interventions. Please do not hesitate to call the Hyperbaric Department at [phone] during clinic hours or page web application dev specialist staff with any updates, questions, or [...] osteomyelitis of left foot ([facility]) documented in this encounter Additional Health Concerns Infection Onset Date Last Indicated Resolved Time 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
--- OUTSIDE RECORDS SUMMARY | 2024-04-17 09:03 | XMS_ITS | Encounter Summary ---
Author Organization 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
--- OUTSIDE RECORDS SUMMARY | 2024-04-17 09:04 | XMS_ITS | Encounter Summary ---
Author Organization [facility] Address [address] [place] [address] Phone Care Team Providers Care Ply Bander Name Role Phone Unavailable Primary Care Provider Unavailabl e Encounter Details Date Type Department Care Team (Late st Contact Info) Description 01/18/2024 10:06 AM CDT - 01/18/2024 11:59 PM CDT Hospital Encounter [facility] Hyperbaric [address] [place], [place] [address] SophiaDavid ward MD 701 [facility] [address] [place], [place] [address] Routine, Hbo - 95082 Discharge Disposition: Discharged to home or self [...] hesitate to call the Hyperbaric Department at [phone] during clinic hours or page performance management consultant staff with any updates, questions, or [...]
--- OUTSIDE RECORDS SUMMARY | 2024-04-17 09:04 | XMS_ITS | Encounter Summary ---
Author Organization [facility] Address [address] [place] [address] Phone Care Team Providers Care Logging Engineer Name Role Phone Unavailable Primary Care Provider Unavailabl e Encounter Details Date Type Department Care Team (Late st Contact Info) Description 01/12/2024 9:53 AM CDT - 01/12/2024 11:59 PM CDT Hospital Encounter [facility] Hyperbaric [address] [place], [place] [phone] SophiaDavid ward MD 701 [facility] [address] [place], [place] [address] Routine, Hbo - [address]3247 Discharge Disposition: Discharged to home or self [...] hesitate to call the Hyperbaric Department at [phone] during clinic hours or page personal property appraiser staff with any updates, questions, or concerns. [...] POC Glucose 414(H) 70 - 100 mg/dL [facility] Blood 01/12/2024 10:0 2 AM CDT us David Cortes MD LABORATORY Final Res ult [facility] [address] [place] [address], [place] documented in this encounter Visit Diagnoses Diagnosis Soft tissue infection- Primary Unspecified infectious and parasitic diseases Other acute osteomyelitis of left foot (CMS/HHS) documented in this encounter Additional Health Concerns Infection Onset Date Last Indicated Resolved Time 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
--- OUTSIDE RECORDS SUMMARY | 2024-04-17 09:04 | XMS_ITS | Clinical Summary ---
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 1 Each 07/24/19 23 Active durable medical equipment (DME)Indications:F ollow-up examination after orthopedic surgery,Osteomyeli tis of right foot, unspecified type (HC),Diabetic ulcer of right midfoot associated with type 2 diabetes mellitus, with necrosis of muscle (HC) SQUARED TOE POST OP SHOE, LARGE, REF: [id number] 1 Each 10/15/19 Active ondansetron (ZOFRAN ODT) [...] 24 HOURS-- 60 Tablet 12 11/13/19 Active nicotine (Nicorette) 4 mg lozengeIndications :Tobacco use Place 1 Lozenge (4 mg) in mouth, between cheek & gum every hour while awake as needed for Nicotine Craving. Max 20 doses/day. 240 Each 12/09/19 Active durable medical equipment (DME)Indications:O steomyelitis of right foot, unspecified type (HC) SQUARED TOE POST OP SHOMINA [place], REF: [phone] 1 Each 12/31/19 Active acetaminophen (TYLENOL EXTRA [...] Anxiety or Itching (Pain). 20 Capsule 01/02/20 Active melatonin 1 mg tablet Take 3 mg by mouth at bedtime. Not on med list staff reported Active lancets (Unistik 3 Comfort Lancet) 28 gauge miscIndications:Ty pe 2 diabetes mellitus with diabetic nephropathy, without long-term current use of insulin (HC) USE TO TEST FOUR TIMES DAILY 400 Each 06/28/19 Active novofine autocover 30 gauge x 1/3 needleIndications: Type 2 diabetes mellitus with other specified complication, with long-term current use of insulin (HC) USE DIRECTED 500 Each 07/05/19 24 Active sensor ([employer] G6 Sensor) for continuous blood glucose monitor [...] A1C 400 Each 3 08/16/19 24 Active ibuprofen (ADVIL; MOTRIN) 800 [...] doses. 75 Each 10/27/19 24 Active transmitter ([employer] G6 Transmitter) for continuous blood glucose monitor [...] intramuscular every 4 weeks. 1 mL 01/25/20 24 Active traZODone (DESYREL) 50 mg tabletIndications: [...] LESS THAN 120* 28 Tablet 12 02/28/20 Active cyclobenzaprine (FLEXERIL) 10 mg tabletIndications: Muscle spasm TAKE 1 TABLET BY MOUTH 3 TIMES DAILY 84 Tablet 12 02/28/20 Active acetaminophen (TYLENOL) 325 mg tabletIndications: Pain [...] MINUTES AFTER 473 mL 11 03/01/20 Active Active Problems Problem Noted Date Diagnosed [...] Encounters Date Type Department Care Team Description 04/10/2024 Orders Only [facility] Scanner 1 scan: (1-Ord) RCMorelia, 04/10/2024 03/29/2024 2:30 PM LEGISLATIVE ADVOCATE Office Visit [facility] [address] [place] [address] Vini Hadyen, DPM Follow Up (Bilateral diabetic foot check, New diabetic shoes) 03/29/2024 Travel 02/29/2024 Orders Only [facility] Scanner 1 scan: (1-Ord) [facility], 02/29/2024 02/27/2024 Refill [facility] [address] [place] [address] Jose R Foster MD Refill Request (Chlorhexidine) 02/22/2024 Refill [facility] [address] [place] [address] Jose R Foster MD Refill Request (Acetaminophen, Stimulant Laxative Plus) 02/22/2024 Refill [facility] [address] [place] [address] Jose R Foster MD Refill Request (Amlodipine, Cyclobenzaprine) 02/02/2024 3:20 PM CDT Office Visit [facility] [address] [place] [address] Jose R Foster MD Diabetes; Hospital F/U [facility] 12/07[facility]23, left foot); Wound Check (groin) 02/02/2024 Travel 01/25/2024 1:30 PM CDT Office Visit [facility] [address] [place] [address] Trey Kim MD Follow Up; Medication Management (feeling, good. I'm sad, because my taxi tickets didn't come in yet. And my back is really sore) 01/25/2024 Travel 01/24/2024 Refill [facility] [address] [place] [address] Jose R Foster MD Refill Request (Dexcom G6 Transmitter) from Last 3 Months Immunizations Name Administration Dates Next Due Influenza, IIV4 02/22/2023,02/23/2022,04/19/2019 Pneumococcal Conj 20-valent (Prevnar 20) 023 Pneumococcal Poly,23-Valent (Pneumovax) 04/19/20 19 Td (Age >=7 Years) 08/28/2002 Td, Preservative Free (age >= 7 Years) Tdap 07/17/2005 Family History Medical History Relation Name Comments Cancer Father throat Diabetes Mother Anesthesia Problem No Family History Blood Disease No Family History Clotting disorder No Family History Relation Name Status Comments Father Mother Social History Tobacco Use Types Packs/Day Years Used Date Smoking Tobacco: Every Day Cigarettes 1.4 16.8 Started: 08/17/2002; Last attempted to quit: 08/17/2017 [...] at Not on file Legal Sex Male 12:50 PM CDT Gender Identity Not on file Sexual Orientation Not on file Occupation Industry Job Start Date Job End Date disabled Not on file Not on file Not on file Obstetrics History Last Filed Vital Signs Vital Sign Reading Time Taken Comments Blood Pressure 136/84 03/29/2024 2:38 PM LEGISLATIVE ADVOCATE Pulse 100 03/29/2024 2:38 PM LEGISLATIVE ADVOCATE Temperature 36.7 C (98 F) 02/02/2024 3:22 PM CDT Respiratory Rate 18 01/01/2023 4:00 PM CDT Oxygen Saturation 95% 03/29/2024 2:38 PM LEGISLATIVE ADVOCATE Inhaled Oxygen Concentration - - Weight 136.1 kg (300 lb) 02/02/2024 3:22 PM CDT Height 180.3 cm (5' 11) 02/02/2024 3:22 PM CDT Body Mass Index 41.84 02/02/2024 3:22 PM CDT Plan of Treatment Upcoming Encounters Date Type Department Care Team (Late st Contact Info) Description 05/11/2024 10:50 AM LEGISLATIVE ADVOCATE Office Visit [facility] [address] [place] [address] Jose R Foster MD [address] [place] [address] 09/27/2024 1:00 PM CDT Office Visit [facility] [address] [place] [address] Vini Hayden DPM [address] [place] [address] Health Maintenance Due Date Last Done Comments [...] than 140/90 Blood Pressure No Dasia Briceno Lisbeth, PA Procedures Procedure Name Priority Date/Time Associated Diagnosis Comments SCAN-EYE EXAM 04/10/2024 12:00 AM LEGISLATIVE ADVOCATE SCAN-EYE EXAM 02/29/2024 12:00 AM CDT HEMOGLOBIN [...] to Health Maintenance Results * SCAN-EYE EXAM (04/10/2024 12:00 AM LEGISLATIVE ADVOCATE) us Scanner OTHER Final Result * SCAN-EYE EXAM (02/29/2024 12:00 AM CDT) us Scanner OTHER Final Result * (ABNORMAL) HEMOGLOBIN A1C MONITORING (POCT) (02/02/2024 3:14 PM CDT) POC HEMOGLOBIN A1C 10.0(H) <6.0 % OF TOTAL HGB [facility] Comment: Any point of care results exhibiting inconsistency with the patient's clinical status should be repeated using a different testing method. Blood BLOOD SPECIMEN / Unknown 02/02/2024 3:14 PM CDT 02/02/2024 3:14 PM CDT us Jose R Foster MD CHEMISTRY Final Re sult [facility] [address] [place] [address], [facility] [address] [place] [address] * (ABNORMAL) CBC WITH AUTO DIFFERENTIAL (02/02/2024 [...] 3:13 PM CDT 02/02/2024 3:13 PM CDT us Jose R Foster MD HEMATOLOGY Final Re sult Performing Organization Address City/[facility]/ZIP Co de Phone Number N4MD [facility] [address] [place] [address], [place] [phone] [facility] [address] [place] [address] * (ABNORMAL) BASIC METABOLIC PANEL (02/02/2024 3:13 PM CDT) Pathologist [facility] GLUCOSE 326(H) 65 - 99 mg/dL [facility] Comment: Fasting reference interval For [...] 3:13 PM CDT 02/02/2024 3:13 PM CDT us Jose R Foster MD CHEMISTRY Final Re sult Performing Organization Address City/[facility]/ZIP Co de Phone Number N4MD [facility] [address] [place] [phone], [employer] [place] [facility] [address] [facility] [place] [address] * (ABNORMAL) LIPID PANEL W REFLEX MEASURED LDL (07/27/2023 2:22 PM CDT) CHOLESTEROL,TOTAL 190 100 - 199 mg/dL 07/27/2023 9:24 PM CDT [facility] Comment: Cholesterol, Total Reference Ranges Desirable <200 mg/dL Borderline 200-239 mg/dL High >=240 mg/dL TRIGLYCERIDES 340(H) <150 mg/dL 07/27/2023 9:24 PM CDT [facility] HDL CHOLESTEROL 45 >40 mg/dL 9:24 PM CDT [facility] NON-HDL CHOLESTEROL 145(H) <145 mg/dl 07/27/2023 9:24 PM CDT [facility] CHOL/HDL RATIO 4.22 <4.50 07/27/2023 9:24 PM CDT [facility] LDL CHOLESTEROL 77 <=130 mg/dL 07/27/2023 9:24 PM CDT [facility] VLDL CHOLESTEROL 68(H) <=30 mg/dL 07/27/2023 9:24 PM CDT [facility] PROVIDER ORDERED STATUS RANDOM 07/27/2023 9:24 PM CDT [facility] Blood BLOOD SPECIMEN / Unknown Venipuncture / Unknown 07/27/2023 2:22 PM CDT 07/27/2023 2:25 PM CDT Trey Kim MD CHEMISTRY Final Result [facility] [address] [place] [address], from Last 3 Months or Most Recently Relevant to Health Maintenance Insurance MEDICAID MEDICARE PART A HB ONLY [facility] MEDICARE PPS Advance Directives * Full Code (Latest Code [...] 8:06 AM 11/08/2018 2:17 PM Care Teams Registered Clinical Dietitian Relationship Specialty Start Date End Date Jose R Foster MD [address] [place] [address] PCP - General Family Practice 07/23/22 Nghia Arauz MD Family Practice 12/25/10
--- OUTSIDE RECORDS SUMMARY | 2024-04-17 09:04 | XMS_ITS | Encounter Summary ---
Author Organization [facility] Address [address] [place] [address] Phone Care Team Providers Care Nuclear Medicine Pet Ct Technologist Name Role Phone Unavailable Primary Care [...]
--- OUTSIDE RECORDS SUMMARY | 2024-04-17 09:04 | XMS_ITS | Encounter Summary ---
Author Organization [facility] Address [address] [place] [address] Phone Care Team Providers Care Line Walker Name Role Phone Unavailable Primary Care Provider Unavailabl e Encounter Details Date Type Department Care Team (Latest Contact Info) Description 01/17/2024 9:42 AM CDT - 01/17/2024 11:59 PM CDT Hospital Encounter [facility] Hyperbaric 701 [facility] [address] [place] [address] Masters, Douglas Osuna II, MD 701 [facility] [address] [place], [place] [address] Routine, Tke - [phone] Discharge Disposition: Discharged to home or self [...] multiple numbers for his convenience locally in [place] for evaluation. HPI, problem list, nursing notes, [...] hesitate to call the Hyperbaric Department at [phone] during clinic hours or page security control room officer staff with any updates, questions, or [...] POC Glucose 288(H) 70 - 100 mg/dL [facility] Blood 01/17/2024 12:1 9 PM CDT us Douglas Morris II, MD LABORATORY Final Re sult Performing Organization Address [facility] Co de Phone Number [facility] [address] [place] [address], [place] * (ABNORMAL) POC GLUCOSE (01/17/2024 9:59 AM CDT) POC Glucose 323(H) 70 - 100 mg/dL [facility] Blood 01/17/2024 9:59 AM CDT us Douglas Morris II, MD LABORATORY Final Re sult Performing Organization Address [facility] Phone Number [facility] [address] [place] [address], [place] documented in this encounter Visit Diagnoses [...]
--- OUTSIDE RECORDS SUMMARY | 2024-04-17 09:04 | XMS_ITS | Encounter Summary ---
Author Organization [facility] Address [address] [facility] [place] [address] Phone Care Team Providers Care Frame Nailer Name Role Phone Unavailable Primary Care Provider Unavailabl e Encounter Details Date Type Department Care Team (Latest Contact Info) Description 01/07/2024 10:06 AM CDT - 01/07/2024 11:59 PM CDT Hospital Encounter [facility] Hyperbaric [address] [place] [address] Maggy Horan MD [address] [place], [place] [address] Untpubl, Hko - 27590 Discharge Disposition: Discharged to home or self [...] hesitate to call the Hyperbaric Department at [phone] during clinic hours or page application support developer staff with any updates, questions, or [...] POC Glucose 344(H) 70 - 100 mg/dL [facility] Blood 01/07/2024 12:2 7 PM CDT us Maggy Horan MD LABORATORY Final Result [facility] [address] [place] [address], * (ABNORMAL) POC GLUCOSE (01/07/2024 10:20 AM CDT) POC Glucose 357(H) 70 - 100 mg/dL [facility] Blood 01/07/2024 10:2 0 AM CDT us Maggy Horan MD LABORATORY Final Result Performing Organization Address City/State/[facility] Co de Phone Number [facility] [address] [place] [address], documented in this encounter Visit Diagnoses Diagnosis Soft tissue infection- Primary Unspecified infectious and parasitic diseases Other acute osteomyelitis of left foot (CMS/HHS) documented in this encounter Additional Health Concerns Infection Onset Date Last Indicated Resolved Time 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
--- OUTSIDE RECORDS SUMMARY | 2024-04-17 09:04 | XMS_ITS | Encounter Summary ---
Author Organization [facility] Address [address] [place] [address] Phone Care Team Providers Care Paper Ruler Name Role Phone Unavailable Primary Care Provider [...]
--- OUTSIDE RECORDS SUMMARY | 2024-04-17 09:04 | XMS_ITS | Encounter Summary ---
Author Organization [facility] Address [address] [facility] [address] [place] [address] Phone Care Team Providers Care Senior Unix Administrator Name Role Phone Unavailable Primary Care Provider Unavailabl e Encounter Details Date Type Department Care Team (Latest Contact Info) Description 01/11/2024 10:01 AM CDT - 01/11/2024 11:59 PM CDT Hospital Encounter [facility] – [place] [address] [place] [id number] Nikolai Martinez MD [address] [facility] [address] [place], [place] [id number] [employer], Ggb - [phone] Discharge Disposition: Discharged to home or self [...] hesitate to call the Hyperbaric Department at [phone] during clinic hours or page laborer ammunition assembly staff with any updates, questions, or concerns. Mayuri Hinojosa APRN, CNP, 01/11/2024 12:21 PM Continuous attending physician supervision was provided throughout the hyperbaric oxygen treatment. I have reviewed and agree with the treatment note created by Nurse Practitioner: Mayuri Hinojosa APRN, SECURITY ALARM TECHNICIAN. documented in this encounter Plan of Treatment Not on file documented as of this encounter Procedures Procedure Name Priority Date/Time Associated Diagnosis Comments POC GLUCOSE Routine 01/11/2024 10:00 AM CDT documented in this encounter Results * (ABNORMAL) POC GLUCOSE (01/11/2024 10:00 AM CDT) POC Glucose 362(H) 70 - 100 mg/dL [facility] Blood 01/11/2024 10:0 0 AM CDT us Nikolai Martinez MD LABORATORY Final Result [facility] [address] [place] [address], documented in this encounter Visit Diagnoses Diagnosis Soft tissue infection- Primary Unspecified infectious and parasitic diseases Other acute osteomyelitis of left foot (CMS/HHS) documented in this encounter Additional Health Concerns Infection Onset Date Last Indicated Resolved Time 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
--- OUTSIDE RECORDS SUMMARY | 2024-04-17 09:04 | XMS_ITS | Encounter Summary ---
Author Organization [facility] Address [address] [place] [id number] Phone Care Team Providers Care Commercial Agent Name Role Phone Unavailable Primary Care [...]
== END 2024-04-17 09:03 | disposition home or self-care (01) ==
LOC: WOUND 09:02
PROVIDERS: PCP Family Medicine; Visit Provider Nurse Practitioner Family
DX: E11.622 Type 2 diabetes mellitus with other skin ulcer (principal); L98.412 Non-pressure chronic ulcer of buttock with fat layer exposed; Z79.4 Long term (current) use of insulin
CPT/HCPCS: 97602; G0463

== ENCOUNTER 2024-04-24 08:58 | Outpatient (CLI) | payer MEDICARE, MEDICAID, SELFPAY | END 2024-04-24 08:59 | disposition home or self-care (01) | LOC: WOUND 08:58 | PROVIDERS: PCP Family Medicine; Visit Provider Nurse Practitioner Family | DX: L98.412 Non-pressure chronic ulcer of buttock with fat layer exposed (principal); E11.622 Type 2 diabetes mellitus with other skin ulcer; Z79.4 Long term (current) use of insulin; Z79.84 Long term (current) use of oral hypoglycemic drugs | CPT/HCPCS: 97602 ==

== ENCOUNTER 2024-05-08 09:04 | Outpatient (CLI) | payer MEDICARE, MEDICAID, SELFPAY | END 2024-05-08 09:05 | disposition home or self-care (01) | LOC: WOUND 09:04 | PROVIDERS: PCP Family Medicine; Visit Provider Physician Assistant Surgical | DX: E11.9 Type 2 diabetes mellitus without complications (principal); Z79.4 Long term (current) use of insulin; Z79.84 Long term (current) use of oral hypoglycemic drugs | CPT/HCPCS: G0463 ==